=== PATIENT | female | born 1965 | race Caucasian/White ===

== ENCOUNTER 2017-08-18 14:40 | Emergency (ER) | payer MEDICAID, SELFPAY ==
[2017-08-18 14:41] VITALS: BP 135/83; PULSE 89; RESP 16; TEMP 36.8; O2SAT 98; BMI 49.5
--- NOTE | 2017-08-18 15:35 | CT_ITS ---
STUDY: CT ABDOMEN AND PELVIS WITHOUT CONTRAST REASON FOR EXAM: Female, 51 years old. Right flank pain. Fell 2 weeks ago. RADIATION DOSAGE (If Supplied By Facility): CTDIvol = ( 34.45 ) mGy, DLP = ( 1962.65 ) mGycm TECHNIQUE: Transaxial images were obtained from the dome of the diaphragm to the symphysis pubis without oral contrast, and without intravenous contrast. Sagittal and coronal images were reconstructed. Individualized dose optimization techniques were used for this CT. COMPARISON: February 25, 2017 FINDINGS: The visualized lung bases are unremarkable. The visualized portions of the heart are within normal limits. Normal liver. There are surgical clips in the gallbladder fossa consistent with a prior cholecystectomy. Normal spleen. Normal pancreas. Normal bilateral adrenal glands. Normal right kidney. 1.6 cm left renal cortical cyst. Normal visualized stomach. Normal small intestine. Normal colon. There are surgical clips in the region of the appendix consistent with a prior appendectomy. Normal abdominal aorta. Normal inferior vena cava. Normal retroperitoneum. Normal urinary bladder. Normal abdominal wall. Moderate levoconvex scoliosis. CT/Abdomen/Pelvis without Cont IMPRESSION: Scoliosis. No fracture. No cause for right flank pain identified. Electronically Signed: Franklin Olson MD at 16:38 EST , Service support ,
[2017-08-18 15:51] LABS: Red Blood Cells-Urine 0 SEEN /hpf (0-5)
[2017-08-18 15:54] LABS: Color, Urine Yellow (Yellow); Glucose, Dipstick Normal (Normal); Ketone-Dipstick Negative (Negative); Leukocyte Esterase-Dipstick 500 /ul (Negative); Nitrite-Dipstick Negative (Negative); Occult Blood-Urine 10 /ul (Negative); Protein-Dipstick Negative (Negative); Specific Gravity, Urine 1.015 (1.002-1.030); Urine Bilirubin Dipstick Negative (Negative); Urine Clarity Sl. Cloudy (Clear); Urine Urobilinogen Normal (Normal)
[2017-08-18] MEDS: Ondansetron 4 MG/2 ML Vial IV (15:55)
[2017-08-18 15:56] LABS: Absolute Lymphocyte Count 2.77 X10^3/ul (0.83-4.51); Absolute Neutrophil Count 4.7 X10^3/uL (2.0-7.7); Basophil# 0.02 X10^3/uL; Basophil% 0.2 % (0-1); Eosinophil# 0.13 X10^3/uL; Eosinophils% 1.6 % (0-5); Hematocrit 37.6 % (37-47); Hemoglobin 11.6 g/dl (12.0-15.0); Lymphocyte # 2.77 X10^3/ul (4.0); Lymphocyte % 34.4 % (19-41); Mean Corp Hgb Conc 30.9 g/gl (32-36); Mean Corpuscular Hgb 30.7 pg (27.0-32.0); Mean Corpuscular Volume 99.5 fL (81-99); Mean Platelet Vol. 10.2 fl (6.2-12.0); Monocyte# 0.46 X10^3/uL; Monocyte% 5.7 % (0-10); Neutrophil # 4.67 X10^3/uL (2.7-7.7); POSITIVE COUNT NO; POSITIVE DIFFERENTIAL NO; POSITIVE MORPHOLOGY NO; Platelet Count 262 K/mm3 (150-450); RBC Distribution Width CV 13.9 % (11.6-14.6); Red Blood Count 3.78 M/mm3 (4.2-5.4); White Blood Count 8.1 K/mm3 (4.4-11.0)
[2017-08-18 16:04] LABS: Bacteria RARE /hpf (None Seen); Mucous, Urine 1+ /hpf (<or=2+); Squamous Epithelial Cells - UA 0-5 SEEN /hpf (5-10); White Blood Cells 5-10 SEEN /hpf (0-5)
[2017-08-18 16:06] LABS: Anion Gap 10 (5-15); BUN 18 mg/dL (7-18); BUN/Creat Ratio 20.3 RATIO (10-20); Calcium,Total 9.2 mg/dL (8.5-10.1); Chloride 101 mmol/L (98-107); Creatinine, Serum 0.89 mg/dL (0.55-1.02); EST Glomerular Filtration Rate 71 mL/min (>60); Est Glom Filt Rate - Afr Amer 86 mL/min (>60); Estimated Creatinine Clearance 70.01 ml/min; Glucose 98 mg/dL (70-110); Potassium 4.2 mmol/L (3.5-5.1); Sodium Level 137 mmol/L (136-145)
--- NOTE | 2017-08-18 16:45 | ED.VISSUMM ---
- ER Visit Summary Date of Service: 08/18/17 Chief Complaint: [] Right flank pain urinary symptoms History of Present Illness: The patient is a 51 F [] symptoms for a few days gradual onset urinary frequency she reports a prior history for kidney infections and kidney stones no nausea vomiting or fever bowel bladder habits normal otherwise Physical Examination: [] She points to her right flank she is a very large woman head neck chest unremarkable the abdomen soft nontender upper lower extremities unremarkable the back is a very vague right paralumbar pain there is no midline C-spine lumbar spine pain the abdomen is obese but soft and nontender she complains of occasional pain seems to radiate to her right flank upper lower extremities unremarkable her gait strong sitting stable 1 week ago she fell but the symptoms began 2 days ago with the urinary frequency Test Results: [] Emergency Department Course and Treatment: [] UA shows signs of UTI CBC chemistry is unremarkable flank CT with reconstructions of lumbar spine images per radiology shows nothing acute no signs of obstruction no signs of kidney stone, no signs of acute fracture scoliosis see those reports The signs of UTI on the UA urine culture essentially started on Cipro and Pyridium [place] [facility] 6 tablets and follow with her family doctor return for change in symptoms Treatment Plan: [] Disposition: [] Home stable Impression: [] r Flank pain suspect UTI pyelonephritis recent fall This note was generated with [employer] dictation software. It may contain incorrect words, spelling, and punctuation that were not noted in review of the chart prior to signing ED Disposition - Plan for ED Patient: Chief Complaint: Complaint Referrals: Alvarez Montanez MD [Primary Care Provider] -
--- NOTE | 2017-08-18 16:48 | ED.DEP ---
ED Disposition - Plan for ED Patient: Chief Complaint: Complaint Instructions: ED UTI Cystitis Female, ED Kidney Infec Female Prescriptions: Hydrocodone Bitart/Apap 5-325 [[place] 5/325] 1 - 2 tab PO Q4H PRN PRN #12 tab PRN Reason: Pain Phenazopyridine HCl [Pyridium] 200 mg PO BID PRN PRN #7 tab PRN Reason: Pain Ciprofloxacin [Cipro] 500 mg PO BID #14 tab Referrals: lAvarez Montanez MD [Primary Care Provider] -
--- NOTE | 2017-08-18 16:52 | DCINST.ED_ITS ---
ED Disposition - Plan for ED Patient: Chief Complaint: Complaint Instructions: ED UTI Cystitis Female, ED Kidney Infec Female Prescriptions: Hydrocodone Bitart/Apap 5-325 [[place] 5/325] 1 - 2 tab PO Q4H PRN PRN #12 tab PRN Reason: Pain Phenazopyridine HCl [Pyridium] 200 mg PO BID PRN PRN #7 tab PRN Reason: Pain Ciprofloxacin [Cipro] 500 mg PO BID #14 tab Referrals: Alvarez Montanez MD [Primary Care Provider] -
[2017-08-18] MEDS: Ciprofloxacin 500 MG Tablet PO (17:02)
[2017-08-18 17:09] VITALS: BP 103/66; PULSE 76; RESP 18; RESP 20; O2SAT 96
== END 2017-08-18 17:10 | disposition home or self-care (01) ==
LOC: ED 15:25
PROVIDERS: Emergency Provider Emergency Medicine; Family Provider Internal Medicine; PCP Internal Medicine
DX: R10.9 Unspecified abdominal pain (principal); R30.0 Dysuria; R35.0 Frequency of micturition; J44.9 Chronic obstructive pulmonary disease, unspecified; Z79.01 Long term (current) use of anticoagulants; Z79.899 Other long term (current) drug therapy; Z87.442 Personal history of urinary calculi; Z87.440 Personal history of urinary (tract) infections
CPT/HCPCS: 74176; 80048; 81001; 85025; 87086; 87088; 96374; 96375; 99284; A4216; J2405

== ENCOUNTER 2017-12-04 18:52 | Emergency (ER) | payer MEDICAID, SELFPAY ==
[2017-12-04 18:54] VITALS: BP 110/70; PULSE 79; RESP 16; TEMP 36.1; O2SAT 95; BMI 21.7
--- NOTE | 2017-12-04 19:53 | EKG12_ITS ---
Test Reason : DIZZINESS Blood Pressure : / mmHG Vent. Rate : 081 BPM Atrial Rate : 081 BPM P-R Int : 132 ms QRS Dur : 092 ms QT Int : 398 ms P-R-T Axes : 024 -11 010 degrees QTc Int : 462 ms Normal sinus rhythm Inferior infarct , age undetermined Abnormal ECG Confirmed by TOBY BATISTA, CHARLENE ([id number]), content editor JOSE EDUARDO SCHULTZ ([id number]) on 12/07/2017 2:03:38 PM Referred By: DORETHA Confirmed By:CHARLENE LUIS MD
--- NOTE | 2017-12-04 20:01 | US_ITS ---
US Venous Duplex LE Bilat Complete INDICATION: CHEST PAIN,...HX OF PE COMPARISON: None TECHNIQUE: Ultrasonographic grayscale, duplex investigation of the venous structures of the bilateral lower extremities. Doppler analysis. FINDINGS: There is normal flow, compressibility and augmentation without evidence of thrombus in the bilateral greater saphenous veins at the junction, common femoral veins, femoral veins, popliteal veins, and posterior tibial veins. US/Venous Duplex Imag/[place] Extrem IMPRESSION: Negative examination. No evidence of DVT in the bilateral lower extremities. at 2141 Reported and signed by: Maddy Mancini MD Electronically Signed: Maddy Mancini MD at 21:39 EDT Tel , Service support ,
[2017-12-04] MEDS: Morphine 4 MG/ML Syringe IV (20:07)
[2017-12-04] MEDS: Ondansetron 4 MG/2 ML Vial IV (20:07)
[2017-12-04] MEDS: 0.9% Normal Saline 1,000 ML 1000 ML IV (20:07)
[2017-12-04 20:19] LABS: Bacteria 0 SEEN /hpf (None Seen); Mucous, Urine 0 SEEN /hpf (<or=2+)
[2017-12-04 20:23] LABS: Color, Urine Yellow (Yellow); Glucose, Dipstick Normal (Normal); Ketone-Dipstick Negative (Negative); Leukocyte Esterase-Dipstick 500 /ul (Negative); Nitrite-Dipstick Negative (Negative); Occult Blood-Urine 25 /ul (Negative); Protein-Dipstick 30 mg/dl (Negative); Specific Gravity, Urine 1.015 (1.002-1.030); Urine Clarity Sl. Cloudy (Clear); Urine Urobilinogen Normal (Normal)
[2017-12-04 20:24] LABS: Urine Bilirubin Dipstick 1 mg/dL (Negative)
--- NOTE | 2017-12-04 20:25 | RAD_ITS ---
XR Chest 2 Views INDICATION: COUGH, LEFT ARM PAIN COMPARISON: None FINDINGS: Heart size and pulmonary vascularity are within normal limits. The lungs are clear without evidence of airspace consolidation or pleural effusion. The osseous structures are grossly unremarkable. RAD/Chest PA and Lateral IMPRESSION: No radiographic evidence of acute intrathoracic disease. at 2122 Reported and signed by: Maddy Mancini MD Electronically Signed: Maddy Mancini MD at 21:20 EDT Tel , Service support ,
[2017-12-04 20:33] LABS: Red Blood Cells-Urine 5-10 SEEN /hpf (0-5); Squamous Epithelial Cells - UA 0-5 SEEN /hpf (5-10); White Blood Cells 25-50 SEEN /hpf (0-5)
[2017-12-04 20:38] LABS: Absolute Lymphocyte Count 2.44 X10^3/ul (0.83-4.51); Basophil# 0.03 X10^3/uL; Basophil% 0.4 % (0-1); Eosinophil# 0.11 X10^3/uL; Eosinophils% 1.4 % (0-5); Hematocrit 36.1 % (37-47); Hemoglobin 11.5 g/dl (12.0-15.0); Lymphocyte # 2.44 X10^3/ul (4.0); Lymphocyte % 30.2 % (19-41); Mean Corp Hgb Conc 31.9 g/gl (32-36); Mean Corpuscular Hgb 31.6 pg (27.0-32.0); Mean Corpuscular Volume 99.2 fL (81-99); Mean Platelet Vol. 10.9 fl (6.2-12.0); Monocyte# 0.51 X10^3/uL; Monocyte% 6.3 % (0-10); Neutrophil # 4.96 X10^3/uL (2.7-7.7); Neutrophil % 61.5 % (47-70); Platelet Count 258 K/mm3 (150-450); RBC Distribution Width CV 13.4 % (11.6-14.6); RBC Distribution Width SD 46.9 fl (35.1-43.9); Red Blood Count 3.64 M/mm3 (4.2-5.4); White Blood Count 8.1 K/mm3 (4.4-11.0)
[2017-12-04 20:39] LABS: POSITIVE COUNT NO; POSITIVE DIFFERENTIAL NO; POSITIVE MORPHOLOGY NO
[2017-12-04 20:49] LABS: Anion Gap 8 (5-15); BUN 19 mg/dL (7-18); BUN/Creat Ratio 16.4 RATIO (10-20); Calcium,Total 9.1 mg/dL (8.5-10.1); Chloride 108 mmol/L (98-107); Creatinine, Serum 1.16 mg/dL (0.55-1.02); EST Glomerular Filtration Rate 52 mL/min (>60); Est Glom Filt Rate - Afr Amer 63 mL/min (>60); Estimated Creatinine Clearance 53.11 ml/min; Glucose 118 mg/dL (74-106); Potassium 4.4 mmol/L (3.5-5.1); Sodium Level 139 mmol/L (136-145)
[2017-12-04 21:01] VITALS: BP 90/60; PULSE 71; RESP 16; O2SAT 92
[2017-12-04 21:04] LABS: Lactic Acid 1.1 mmol/L (0.4-2.0)
--- NOTE | 2017-12-04 22:04 | ED.DCSUM_ITS ---
- ER Visit Summary Date of Service: 12/04/17 Chief Complaint: Upper back pain History of Present Illness: The patient is a [address] Montanez. She reports she has upper back pain that began 3 days ago while she was at rest. It is a sharp continuous pain. Is 10 out of 10 worst 7-10 currently. Is worsened by deep breaths and relieved by nothing. She denies any trauma. No fall, MVA, or change in activity. She reports this is similar to when she has had a PE. Last PE was approximately 1 year ago. She has been on Xarelto since that time and reports he is not missed a dose of this. Patient also reports that she has dysuria and frequency that began 3 days ago. She has had chills, but no fever. She has had a nonproductive cough for the past 2 days. She has had mild shortness of breath. Physical Examination: Vitals: Stable. Afebrile. General: Well-nourished and well-developed. Head: Normocephalic atraumatic. Neck: Supple, no lymphadenopathy. No JVD. Nontender. Cardiovascular: Regular rate and rhythm. No murmurs. Respiratory: No respiratory distress. Clear to auscultation bilaterally. Abdominal: Soft, nontender, nondistended, normal bowel sounds. No guarding, rebound, or peritoneal signs. Back: Moderate tenderness palpation to the left intrascapular musculature that does reproduce her pain. There is no vertebral tenderness. Extremities: Nontender, no edema. Skin: Normal color, no rash. Neurologic: Alert and oriented ?3. Cranial nerves II through XII are intact. Normal strength and sensation. Psych: Normal affect. Test Results: EEG is sinus at [address] changes. Bilateral lower extremity Dopplers negative. Troponins negative. UA shows 25-50 white blood cells and 510 red blood cells. Chem-7 is more for chloride 108, glucose 118, BUN 19, creatinine 1.16. Lactic acid is 1.1. CBC is marked for an H&H 11.5 and 36.1. Chest x-ray shows poor inspiration cardiomegaly. Emergency Department Course and Treatment: Patient was treated the dose of morphine and Zofran IV. She was given Macrobid p.o. Her urine was sent for culture. Treatment Plan: An [facility] report was obtained which shows patient's had prescription for 8 opiates in the past year. She will be discharged with [place] and Macrobid. Instructed to follow-up her primary care physician in 3-5 days for repeat exam. Return to the emergency department for any worsening symptoms. Disposition: To home in improved and stable condition. Impression: 1. UTI. 2. Muscular skeletal back pain. 3. Coagulopathy on Xarelto. This note was generated with [employer] dictation software. It may contain incorrect words, spelling, and punctuation that were not noted in review of the chart prior to signing ED Disposition - Plan for ED Patient: Disposition: Home or Assisted Living Chief Complaint: General Illness Instructions: ED Neck Back Pain General Prescriptions: Hydrocodone/Acetaminophen [[place] 5-325 Tablet] 1 - 2 each PO 4X/DAY PRN PRN 3 Days #12 tablet PRN Reason: Pain Nitrofurantoin Macrocrystals [Macrobid] 100 mg PO Q12 #14 capsule Referrals: Alvarez Montanez MD [Primary Care Provider] - 3-5 Days if not improving
[2017-12-04 22:21] VITALS: BP 90/60; PULSE 69; RESP 16; O2SAT 91
[2017-12-04] MEDS: HYDROcodone Bitartrate/Apap 5/325 Tablet PO ×2 (22:24)
[2017-12-04] MEDS: Nitrofurantoin Macrocrystals 100 MG Capsule PO (22:24)
== END 2017-12-04 22:31 | disposition home or self-care (01) ==
PROVIDERS: Emergency Provider Emergency Medicine; Family Provider Internal Medicine; PCP Internal Medicine
DX: M54.6 Pain in thoracic spine (principal); R06.02 Shortness of breath; N39.0 Urinary tract infection, site not specified; D68.8 Other specified coagulation defects; I10 Essential (primary) hypertension; Z86.73 Personal history of transient ischemic attack (TIA), and cerebral infarction without residual deficits; Z86.711 Personal history of pulmonary embolism; Z72.0 Tobacco use
CPT/HCPCS: 71046; 80048; 81001; 83605; 84484; 85025; 87040; 93005; 93970; 96361; 96374; 96375; 99285; J7030; A4216; J2405

== ENCOUNTER 2018-02-12 16:10 | Emergency (ER) | payer MEDICAID, SELFPAY ==
[2018-02-12 16:11] VITALS: BP 163/106; PULSE 105; RESP 16; TEMP 35.6; O2SAT 95; BMI 47.6
--- NOTE | 2018-02-12 16:23 | ED.VISSUMM ---
- ER Visit Summary Date of Service: 02/12/18 Chief Complaint: Left wrist injury History of Present Illness: The patient is a 52 F who fell injuring her left wrist. Patient states she was lying in bed and got leg cramps causing her to jump out of bed quickly. She lost her balance and fell forward, putting her left hand out to catch herself. She is complaining of focal pain to the left wrist. She denies any other injury. She is right-hand dominant. Physical Examination: Vital signs significant for blood pressure of 163/106. Head neck examination unremarkable with no sign of trauma. Heart is regular rate and rhythm. No lung sounds are clear. Abdomen is soft nontender. Left upper extremity examination reveals diffuse tenderness throughout the left wrist with mild edema and ecchymosis. There is no tenderness over the hand, elbow, or shoulder. She has normal cap refill and sensation. Test Results: Left wrist x-rays are obtained and reveal no evidence of fracture or dislocation. Emergency Department Course and Treatment: Patient was given a dose of [place] here. Test results were discussed with her. She will be given a Velcro wrist splint to wear for comfort. She will continue naproxen at home as needed. Treatment Plan: [] Disposition: Discharge Impression: Left wrist sprain status post mechanical fall This note was generated with [employer] dictation software. It may contain incorrect words, spelling, and punctuation that were not noted in review of the chart prior to signing ED Disposition - Plan for ED Patient: Chief Complaint: Upper Extremity Injury Referrals: Alvarez Montanez MD [Primary Care Provider] -
--- NOTE | 2018-02-12 16:35 | RAD_ITS ---
STUDY: X-RAY - LEFT WRIST REASON FOR EXAM: Female, 52 years old. Pain. Fall. TECHNIQUE: 3 view(s) of the wrist were obtained. COMPARISON: None. FINDINGS: There is no evidence of fracture or dislocation. There are no significant degenerative changes. There are no radiodense foreign bodies. RAD/Wrist min 3 Views IMPRESSION: No fracture or dislocation. Electronically Signed: Yonatan Tavera, at 16:50 EDT Tel , Service support ,
[2018-02-12] MEDS: HYDROcodone Bitartrate/Apap 5/325 Tablet PO (16:40)
--- NOTE | 2018-02-12 17:04 | ED.DEP ---
ED Disposition - Plan for ED Patient: Disposition: Home or Assisted Living Chief Complaint: Upper Extremity Injury Instructions: ED Sprain Wrist Referrals: Alvarez Montanez MD [Primary Care Provider] - 1 Week if not improving
== END 2018-02-12 17:18 | disposition home or self-care (01) ==
PROVIDERS: Emergency Provider Emergency Medicine; Family Provider Internal Medicine; PCP Internal Medicine
DX: S63.502A Unspecified sprain of left wrist, initial encounter (principal); W06.XXXA Fall from bed, initial encounter; Y93.9 Activity, unspecified; Y92.9 Unspecified place or not applicable; Y99.9 Unspecified external cause status; J44.9 Chronic obstructive pulmonary disease, unspecified; R56.9 Unspecified convulsions; I10 Essential (primary) hypertension; Z72.0 Tobacco use; Z79.01 Long term (current) use of anticoagulants; Z79.899 Other long term (current) drug therapy; Z86.711 Personal history of pulmonary embolism; Z86.73 Personal history of transient ischemic attack (TIA), and cerebral infarction without residual deficits
CPT/HCPCS: 73110; 99284

== ENCOUNTER 2018-03-03 20:30 | Observation (INO) | payer MEDICAID, SELFPAY ==
[2018-03-03 20:31] VITALS: BP 134/75; PULSE 70; RESP 20; TEMP 35.8; O2SAT 97; BMI 46.7
[2018-03-03 20:41] VITALS: O2SAT 97
--- NOTE | 2018-03-03 20:50 | ED.VISSUMM ---
- ER Visit Summary Date of Service: 03/03/18 Chief Complaint: Leg pain History of Present Illness: The patient is a 52 F with bilateral lower extremity pain. No edema. The pain and circumferential. Started 2-3 days ago. She is able to walk. She was complaining of some shortness of breath, however this is somewhat chronic for her. She is on Xarelto for pulmonary embolism, she did have a period for 1 week where she did not take it, she started again one day ago. No fever chills no palpitations. Physical Examination: Not appear in acute distress. Slightly dry mucous membranes, no obvious facial deformity No C-spine tenderness supple neck. Regular rate and rhythm without any obvious murmurs Worse lungs bilaterally speaking in 4-5 word sentences with some respiratory distress Abdomen soft and nontender no guarding or rebound Moves all extremities without any difficulty or pain. No edema. She has pain anterior and posterior leg region. Normal pulses normal color. No rash. Skin does not show any obvious rashes or lesions, no trauma. Alert oriented ?3 with no gross focal deficit Emergency Department Course and Treatment: Patient has an unremarkable x-ray PE study is negative but she does have groundglass opacity in her lungs, rest of the workup is unremarkable I am unsure about the etiology but there are times where she is quite hypoxic and struggling to breathe. Admission for further workup. Disposition: Admit to the hospital Impression: Acute respiratory distress Hypoxia This note was generated with [employer] dictation software. It may contain incorrect words, spelling, and punctuation that were not noted in review of the chart prior to signing ED Disposition - Plan for ED Patient: Chief Complaint: Lower Extremity Injury Referrals: Alvarez Montanez MD [Primary Care Provider] -
--- NOTE | 2018-03-03 20:51 | ED.RN ---
PT REPORTS CHEST PRESSURE IN LEFT SIDE OF CHEST ALL DAY TODAY. PT PLACED ON [employer]PER[employer] AND CALLED RESPIRATORY FOR AN EKG. DR. MANZANARES INFORMED.
[2018-03-03] MEDS: Ondansetron 4 MG/2 ML Vial IV (20:59)
[2018-03-03] MEDS: Morphine 4 MG/ML Syringe IV (20:59)
[2018-03-03 21:04] LABS: Absolute Lymphocyte Count 3.95 X10^3/ul (0.83-4.51); Absolute Neutrophil Count 4.7 X10^3/uL (2.0-7.7); Basophil# 0.04 X10^3/uL; Basophil% 0.4 % (0-1); Eosinophil# 0.18 X10^3/uL; Eosinophils% 1.9 % (0-5); Hemoglobin 12.2 g/dl (12.0-15.0); Lymphocyte # 3.95 X10^3/ul (4.0); Lymphocyte % 42.4 % (19-41); Mean Corp Hgb Conc 31.3 g/gl (32-36); Mean Corpuscular Hgb 30.3 pg (27.0-32.0); Mean Corpuscular Volume 96.8 fL (81-99); Mean Platelet Vol. 10.8 fl (6.2-12.0); Monocyte# 0.42 X10^3/uL; Monocyte% 4.5 % (0-10); Neutrophil # 4.72 X10^3/uL (2.7-7.7); Neutrophil % 50.7 % (47-70); Platelet Count 273 K/mm3 (150-450); RBC Distribution Width CV 13.3 % (11.6-14.6); RBC Distribution Width SD 46.8 fl (35.1-43.9); Red Blood Count 4.03 M/mm3 (4.2-5.4); White Blood Count 9.3 K/mm3 (4.4-11.0)
[2018-03-03 21:06] LABS: POSITIVE COUNT NO; POSITIVE DIFFERENTIAL NO; POSITIVE MORPHOLOGY NO
[2018-03-03 21:25] LABS: AST(SGOT) 26 U/L (15-37); Alanine Aminotransfer ALT/SGPT 30 U/L (13-56); Alkaline Phosphatase 81 U/L (45-117); Anion Gap 8 (5-15); BUN 26 mg/dL (7-18); BUN/Creat Ratio 18.1 RATIO (10-20); Calcium,Total 8.7 mg/dL (8.5-10.1); Chloride 108 mmol/L (98-107); Creatinine, Serum 1.44 mg/dL (0.55-1.02); EST Glomerular Filtration Rate 41 mL/min (>60); Est Glom Filt Rate - Afr Amer 49 mL/min (>60); Estimated Creatinine Clearance 42.78 ml/min; Glucose 99 mg/dL (74-106); Potassium 4.4 mmol/L (3.5-5.1); Sodium Level 140 mmol/L (136-145)
[2018-03-03] MEDS: Morphine 2 MG/ML Syringe IV (22:06)
[2018-03-03 22:35] VITALS: BP 130/75; PULSE 70; RESP 21; O2SAT 93
[2018-03-03 23:03] VITALS: PULSE 68; RESP 19
[2018-03-03] MEDS: Ipratropium/Albuterol Sulfate 3 ML AMPUL.NEB INHALATION (23:03)
--- NOTE | 2018-03-03 23:28 | PCM.HP.STD ---
Problem List (1) Acute and chronic respiratory failure Status: Acute (2) Restrictive lung disease Status: Chronic (3) Chronic narcotic dependence Status: Chronic (4) Morbid obesity Status: Chronic (5) HTN (hypertension) Status: Chronic Qualifiers: Hypertension type: essential hypertension Qualified Code(s): I10 - Essential (primary) hypertension (6) LEIGH ANN (acute kidney injury) Status: Acute History of Present Illness Date of Admission: 03/03/18 Chief Complaint: Bilateral leg pain and shortness of breath. The patient is a 52 year old F with a significant history of bilateral DVT, PE, seizures, chronic narcotic use, obesity, restrictive lung disease COPD, asthma, hypertension, hyperlipidemia, prediabetes and tobacco abuse who presents with 2 days of circumferential bilateral leg pain. Patient reports that at rest she has cramps in her legs. However, when she walks she has pain in her bilateral legs. Associated with her symptom is a progressively worsening shortness of breath ?1 week. The patient is on Xarelto for DVT and PE but she ran out of her Xarelto for 1 week and restarted his Xarelto few hours before his admission. Also patient reports epigastric pain for which reason she was given morphine sulfate at emergency department. On presentation at emergency department her oxygen saturation was in the hgher 80s to lower 90s. At emergency department because of her history of DVT and PE a CT of the chest was done. CT of the chest was unremarkable PE however I show some groundglass opacities. Patient reported that she was on home oxygen but her home oxygen prescription was discontinued because her oxygenation saturation was above the minimum threshold. Past Medical History Past Medical History (Chronic Problems): Chronic Problems (Last Reviewed 03/04/18 @ 00:43 by Quinn Ocampo MD) Obesity (Chronic) Restrictive lung disease (Chronic) Chronic narcotic dependence (Chronic) STEPHANIE (obstructive sleep apnea) (Chronic) COPD (chronic obstructive pulmonary disease) (Chronic) Hypothyroidism (Chronic) Depression (Chronic) Seizure disorder (Chronic) TIA (transient ischemic attack) (Chronic) Morbid obesity (Chronic) Anxiety and depression (Chronic) HTN (hypertension) (Chronic) HLD (hyperlipidemia) (Chronic) Medical History: Medical History (Last Reviewed 03/04/18 @ 00:43 by Quinn Ocampo MD) Obesity (Chronic) E66.9 MSSA (methicillin susceptible Staphylococcus aureus) pneumonia (Acute) J15.211 Restrictive lung disease (Chronic) J98.4 Dependence on continuous supplemental oxygen (Acute) Z99.81 Chronic narcotic dependence (Chronic) F11.20 Acute and chronic respiratory failure (Acute) J96.20 Pulmonary embolism (Acute) I26.99 SOB (shortness of breath) (Acute) R06.02 Diastolic dysfunction (Acute) I51.9 Syncope and collapse (Acute) R55 STEPHANIE (obstructive sleep apnea) (Chronic) G47.33 COPD (chronic obstructive pulmonary disease) (Chronic) J44.9 Hypothyroidism (Chronic) E03.9 Depression (Chronic) F32.9 Seizure disorder (Chronic) G40.909 Chest pain (Acute) R07.9 TIA (transient ischemic attack) (Chronic) Morbid obesity (Chronic) E66.01 Anxiety and depression (Chronic) F41.8 HTN (hypertension) (Chronic) I10 HLD (hyperlipidemia) (Chronic) E78.5 Bilateral peripheral pulmonary emboli (Inactive) COPD exacerbation (Inactive) J44.1 Allergies aspirin Allergy (Verified 03/03/18 20:33) Hives ibuprofen Allergy (Verified 03/03/18 20:33) Hives iodine Allergy (Verified 03/03/18 20:33) Hives ketorolac tromethamine [From Toradol] Allergy (Verified 03/03/18 20:33) Angioedema meperidine HCl [From Demerol] Allergy (Verified 03/03/18 20:33) Other Penicillins [PCN] Allergy (Verified 03/03/18 20:33) Hives tramadol HCl [From Ultram] Allergy (Verified 03/03/18 20:33) Angioedema nitroglycerin Adverse Reaction (Verified 03/03/18 20:33) Other HEADACHE, TONGUE SWELLING. BENTYL Allergy (Uncoded 03/03/18 20:33) Itching Home Medications: Ambulatory Orders Medication Instructions Recorded levETIRAcetam tablet [Keppra 500 mg PO BID 11/29/15 tablet] Labetalol [Trandate (Beta Juan José)] 100 mg PO BID #60 tab 04/08/16 Calcium Carbonate [Calcium] 600 mg PO DAILY 09/06/16 Clonazepam [Klonopin] 0.5 mg PO BID 10/02/16 Budesonide/Formoterol 160/4.5 2 puff INHALATION BID #1 inhaler 10/06/16 [Symbicort 160/4.5 Mcg Inhaler (SP)] Levothyroxine [Synthroid] 25 mcg PO DAILY@0600 tab 03/27/17 albuterol sulfate 2.5 mg/3 mL 2.5 mg INHALATION Q4H ml 08/01/17 (0.083 %) solution for nebulization albuterol sulfate HFA 90 2 puff INHALATION Q4H PRN g 08/01/17 mcg/actuation aerosol inhaler losartan 50 mg tablet 50 mg PO QDAY 08/01/17 omeprazole 40 mg capsule,delayed 40 mg PO QDAY 08/01/17 release pseudoephedrine-guaifenesin ER 120 1 tab PO DAILY PRN PRN 08/01/17 mg-1,200 mg tab,extend release 12hr rivaroxaban 20 mg tablet 20 mg PO DAILY #90 tab 03/03/18 Surgical History: Surgical History (Last Reviewed 03/04/18 @ 00:43 by Quinn Ocampo MD) History of hysterectomy (Resolved) Z98.890, Z90.710 History of cholecystectomy (Resolved) Z98.890, Z90.49 Hx of appendectomy (Resolved) Z98.890, Z90.49 Surgical History: appendectomy, cholecystectomy, hysterectomy Psychiatric History: Anxiety, Depression [employer]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 Lives: Spouse/ Significant Other Smoking Status: Current every day smoker Tobacco Use: Non-smoker Alcohol: None Drugs: None - *Family History Maternal Family History: Family History (Last Updated 08/01/17 @ 10:34 by Yolanda Skinner) Brother Myocardial infarction Father Colon cancer History Items: Cancer Paternal Family History: Family History (Last Updated 08/01/17 @ 10:34 by Yolanda Skinner) Brother Myocardial infarction Father Colon cancer History Items: Cancer Review of Systems Constitutional: Denies: Chills, Fever, Weight Change HEENT: Denies: Head Aches, Sinus Congestion, Sinus Drainage Cardiovascular: Denies: Chest Pain, Palpitations Respiratory: Reports: Shortness of breath at rest Gastrointestinal: Reports: - - Epigastric pain Genitourinary: Denies: Dysuria Musculoskeletal: Reports: Leg Pain - Bilateral Skin: Denies: Rash, Wounds Neurological: Denies: Numbness, Tingling, Focal weakness Psychiatric: Denies: Homicidal Ideations, Suicidal Ideations Endocrine: Denies: Change in Body Habitus, Polyuria Hematologic/ Lymphatic: Denies: Easy Bruising, Easy Bleeding VTE Information - Inpt Only VTE Present on Admission: No VTE Mechan Device Prophylaxis: None VTE Pharm Prophylaxis ordered?: No Reason prophylaxis not ordered:: Treatment Not Indicated - On Xarelto; continued Patient Problems: Active and Suspected Problems (Last Reviewed 03/04/18 @ 00:43 by Quinn Ocampo MD) LEIGH ANN (acute kidney injury) (Acute) - Physical Exam General: Alert, Oriented x3, Cooperative HEENT: Atraumatic, PERRLA, EOMI, Normocephalic Neck: Supple, No JVD, Negative Carotid Bruits Lungs: Clear to auscultation, Diminished Cardiovascular: Regular rate, No murmurs Abdomen: Bowel Sounds Present, Soft, Non Tender Extremities: No edema, Capillary Refill Less than 3 Seconds Skin: No rashes, No breakdown Musculoskeletal: Tenderness - Bilateral legs. Lymphatic: No Cervical, Supraclavicular, or Inguinal Adenopathy Neurological: Cranial nerves II-XII grossly intact Psych/Mental Status: Anxious Vital Signs Temp Pulse Resp BP Pulse Ox 96.4 F L 68 19 H 130/75 H 93 03/03/18 20:31 03/03/18 23:03 03/03/18 23:03 03/03/18 22:35 03/03/18 22:35 Oxygen Delivery Method Room Air Weight: 131.542 kg Body Mass Index (BMI) 46.7 Laboratory Tests Past 24 Hrs 03/03/18 03/03/18 20:50 20:50 WBC 9.3 RBC 4.03 L Hgb 12.2 Hct 39.0 MCV 96.8 MCH 30.3 MCHC 31.3 L RDW 13.3 RDW Differential 46.8 H Plt Count 273 MPV 10.8 Immature Gran % (Auto) 0.100 Neut % (Auto) 50.7 Lymph % (Auto) 42.4 H Dade % (Auto) 4.5 Eos % (Auto) 1.9 Baso % (Auto) 0.4 Absolute Neuts (auto) 4.7 Absolute Lymphs (auto) 3.95 Total Counted Not Reportable Sodium 140 Potassium 4.4 Chloride 108 H Carbon Dioxide 24.0 Anion Gap 8 BUN 26 H Creatinine 1.44 H Estim Creat Clear Calc 42.78 Est GFR (MDRD) Af Amer 49 L Est GFR (MDRD) Non-Af 41 L BUN/Creatinine Ratio 18.1 Glucose 99 Calcium 8.7 Total Bilirubin 0.20 AST 26 ALT 30 Alkaline Phosphatase 81 Troponin I < 0.015 Total Protein 8.0 Albumin 4.0 Globulin 4.0 Albumin/Globulin Ratio 1.0 Assessment/Plan All Active Problems (Last Reviewed 03/04/18 @ 00:43 by Quinn Ocampo MD) LEIGH ANN (acute kidney injury) (Acute) MSSA (methicillin susceptible Staphylococcus aureus) pneumonia (Acute) Dependence on continuous supplemental oxygen (Acute) History of hysterectomy (Resolved) History of cholecystectomy (Resolved) Hx of appendectomy (Resolved) Acute and chronic respiratory failure (Acute) Pulmonary embolism (Acute) SOB (shortness of breath) (Acute) Diastolic dysfunction (Acute) Syncope and collapse (Acute) Chest pain (Acute) The patient is a 52 year old F with a significant history of bilateral DVT, PE, seizures, COPD, asthma, hypertension, hyperlipidemia, hypothyroidism, GERD, prediabetes and tobacco abuse who presented with bilateral leg pain, increasing shortness of breath and found to have hypoxia; laboratory finding of elevated creatinine above her baseline; and radiographic findings of ground glass opacity consistent with acute on chronic respiratory failure with hypoxia; and LEIGH ANN. Acute respiratory failure hypoxia. A CT of her chest shows a ground glass opacity Differential diagnosis include diffuse parenchymal lung disease. She has no wheezing on examination and she could move air the lungs. Although her lung sounds appear to be somewhat diminished this may be due to his obesity. She does not appear to be fair. The patient. We will treat patient with prednisone 40 mg daily DuoNeb scheduled Albuterol as needed Since patient is a patient of Dr. Christianson will consult Dr. Christianson. Bilateral leg pain Because of a history of PE; history of bilateral DVT; and current bilateral leg pain; will order bilateral duplex of the legs. Epigastric pain Likely due to work of breathing or GERD Troponin at emergency department was unremarkable. Serial troponin ordered. Received multiple doses of morphine at the emergency department. Tums prn Oxycodone prn Acute kidney injury Creatinine on admit was 1.44 Baseline creatinine is less than 1. Gentle IV hydration Avoid nephrotoxic's. Hypertension Labetalol and Cozaar continued Hypothyroidism Synthroid continued History of seizures Seizure precautions Keppra continued Tobacco abuse counselled Inpatient consult for smoking cessation. Patient refused a nicotine patch. She states the nicotine patch making nauseous. History of DVT/PE Xarelto continued. DVT prophylaxis Not indicated Home Xarelto continued. Code Visit Inpatient E&M: 91553 Init Hosp L3
[2018-03-04] VITALS (10 sets, daily range): BP systolic 105–120; BP diastolic 58–91; PULSE 58–84; RESP 17–22; TEMP 36.4–36.8; O2SAT 81–98; BMI 48.4; BMI 48.5
[2018-03-04] MEDS: Morphine 2 MG/ML Syringe 1 MG IV (00:15)
[2018-03-04] MEDS: oxyCODONE 5 MG Tablet PO ×2 (01:33→05:51)
[2018-03-04] MEDS: predniSONE 20 MG Tablet 40 MG PO (01:34)
[2018-03-04] MEDS: 0.9% Normal Saline 1,000 ML 75 ML IV (01:34)
[2018-03-04] MEDS: Ipratropium/Albuterol Sulfate 3 ML AMPUL.NEB INHALATION (02:02)
[2018-03-04] MEDS: Acetaminophen 325 MG Tablet 650 MG PO ×2 (03:42→11:12)
[2018-03-04] MEDS: Mag Hydrox/Al Hydrox/Simeth 30 ML UDC PO (04:13)
--- NOTE | 2018-03-04 05:23 | CPS ---
pt having chest pain , does not want cpap on at this time.
[2018-03-04] MEDS: Levothyroxine 25 MCG TABLET PO (05:51)
[2018-03-04 05:57] LABS: Anion Gap 10 (5-15); BUN 22 mg/dL (7-18); BUN/Creat Ratio 20.6 RATIO (10-20); Calcium,Total 8.5 mg/dL (8.5-10.1); Chloride 108 mmol/L (98-107); Creatinine, Serum 1.07 mg/dL (0.55-1.02); EST Glomerular Filtration Rate 57 mL/min (>60); Est Glom Filt Rate - Afr Amer 69 mL/min (>60); Estimated Creatinine Clearance 57.58 ml/min; Glucose 123 mg/dL (74-106); Potassium 4.8 mmol/L (3.5-5.1); Sodium Level 141 mmol/L (136-145)
--- NOTE | 2018-03-04 06:46 | PCM.CONS.GEN ---
Reason for Consult Date of Consultation: 03/04/18 Reason for Consultation: Shortness of breath/acute hypoxic respiratory insufficiency History of Present Illness: The patient is a morbidly obese 52-year-old female, with a history as outlined below, who presented to the emergency department on March 03 with complaints of shortness of breath and lower extremity pain. The patient does have a history of bilateral pulmonary emboli initially diagnosed in December 2015. The patient has been anticoagulated on Xarelto since that time. She does have a smoking history that includes 2 packs per day ?13 years, having quit completely 1 year ago. The patient has been evaluated in the pulmonary medicine clinic and was last seen in April 2017. Since she established care in the pulmonary medicine clinic, she has no showed 3 separate appointments and canceled 1. She claims that she also ran out of her Xarelto and only just recently got a new prescription for it from her vp ad sales west, Dr. Bagley. Surface echocardiogram from March 2017 revealed evidence of diastolic dysfunction with preserved ejection fraction. Right ventricular systolic pressure was estimated to be 36 mmHg. The patient also has known underlying obstructive sleep apnea, for which it was recommended that she be placed on nocturnal BiPAP at a pressure support of 22/18 cm of water with humidification. Pulmonary function testing from October 2016 revealed evidence of a mild restrictive ventilatory defect with asymmetric reduction in diffusing capacity and significantly reduced ERV, likely related to the patient's body habitus. A 6 minute walk test was also completed in March 2017 revealed no significant exertional hypoxia, but did reveal exertional tachycardia, likely indicative of an underlying cardiovascular limitation to exercise tolerance. On presentation to the emergency department, the patient was noted to be afebrile hemodynamically stable. She was initially documented to be maintaining appropriate oxygen saturations on room air. The patient refused to be placed on CPAP overnight. This morning, she did readily admit to me that she is noncompliant with the use of her nocturnal BiPAP therapy. Her laboratory evaluation revealed no evidence of a leukocytosis. Chemistry profile revealed evidence of acute kidney injury with a creatinine of 1.4. Troponins have been negative ?3. A repeat CTA chest was obtained and revealed no evidence of pulmonary embolism. There was diffuse interstitial thickening and groundglass opacities concerning for pulmonary interstitial edema. Past Medical History Past Medical History (Chronic Problems): Chronic Problems (Last Updated 03/04/18 @ 10:00 by Ge Montiel DO) Obesity (Chronic) Restrictive lung disease (Chronic) Chronic narcotic dependence (Chronic) Pulmonary embolism (Chronic) Diastolic dysfunction (Chronic) STEPHANIE (obstructive sleep apnea) (Chronic) COPD (chronic obstructive pulmonary disease) (Chronic) Hypothyroidism (Chronic) Depression (Chronic) Seizure disorder (Chronic) TIA (transient ischemic attack) (Chronic) Morbid obesity (Chronic) Anxiety and depression (Chronic) HTN (hypertension) (Chronic) HLD (hyperlipidemia) (Chronic) Medical History: Medical History (Last Updated 03/04/18 @ 10:00 by Ge Montiel DO) Obesity (Chronic) E66.9 MSSA (methicillin susceptible Staphylococcus aureus) pneumonia (Resolved) J15.211 Restrictive lung disease (Chronic) J98.4 Dependence on continuous supplemental oxygen (Acute) Z99.81 Chronic narcotic dependence (Chronic) F11.20 Acute and chronic respiratory failure (Resolved) J96.20 Pulmonary embolism (Chronic) I26.99 SOB (shortness of breath) (Acute) R06.02 Diastolic dysfunction (Chronic) I51.9 Syncope and collapse (Resolved) R55 STEPHANIE (obstructive sleep apnea) (Chronic) G47.33 COPD (chronic obstructive pulmonary disease) (Chronic) J44.9 Hypothyroidism (Chronic) E03.9 Depression (Chronic) F32.9 Seizure disorder (Chronic) G40.909 Chest pain (Acute) R07.9 TIA (transient ischemic attack) (Chronic) Morbid obesity (Chronic) E66.01 Anxiety and depression (Chronic) F41.8 HTN (hypertension) (Chronic) I10 HLD (hyperlipidemia) (Chronic) E78.5 Bilateral peripheral pulmonary emboli (Inactive) COPD exacerbation (Inactive) J44.1 Allergies aspirin Allergy (Verified 03/03/18 20:33) Hives ibuprofen Allergy (Verified 03/03/18 20:33) Hives iodine Allergy (Verified 03/03/18 20:33) Hives ketorolac tromethamine [From Toradol] Allergy (Verified 03/03/18 20:33) Angioedema meperidine HCl [From Demerol] Allergy (Verified 03/03/18 20:33) Other Penicillins [PCN] Allergy (Verified 03/03/18 20:33) Hives tramadol HCl [From Ultram] Allergy (Verified 03/03/18 20:33) Angioedema nitroglycerin Adverse Reaction (Verified 03/03/18 20:33) Other HEADACHE, TONGUE SWELLING. BENTYL Allergy (Uncoded 03/03/18 20:33) Itching Home Medications: Ambulatory Orders Medication Instructions Recorded levETIRAcetam tablet [Keppra 500 mg PO BID 11/29/15 tablet] Labetalol [Trandate (Beta Juan José)] 100 mg PO BID #60 tab 04/08/16 Calcium Carbonate [Calcium] 600 mg PO DAILY 09/06/16 Clonazepam [Klonopin] 0.5 mg PO BID 10/02/16 Budesonide/Formoterol 160/4.5 2 puff INHALATION BID #1 inhaler 10/06/16 [Symbicort 160/4.5 Mcg Inhaler (SP)] Levothyroxine [Synthroid] 25 mcg PO DAILY@0600 tab 03/27/17 albuterol sulfate 2.5 mg/3 mL 2.5 mg INHALATION Q4H ml 08/01/17 (0.083 %) solution for nebulization albuterol sulfate HFA 90 2 puff INHALATION Q4H PRN g 08/01/17 mcg/actuation aerosol inhaler losartan 50 mg tablet 50 mg PO QDAY 08/01/17 omeprazole 40 mg capsule,delayed 40 mg PO QDAY 08/01/17 release pseudoephedrine-guaifenesin ER 120 1 tab PO DAILY PRN PRN 08/01/17 mg-1,200 mg tab,extend release 12hr rivaroxaban 20 mg tablet 20 mg PO DAILY #90 tab 03/03/18 Surgical History: Surgical History (Last Reviewed 03/04/18 @ 00:43 by Quinn Ocampo MD) History of hysterectomy (Resolved) Z98.890, Z90.710 History of cholecystectomy (Resolved) Z98.890, Z90.49 Hx of appendectomy (Resolved) Z98.890, Z90.49 Surgical History: appendectomy, cholecystectomy, hysterectomy Psychiatric History: Anxiety, Depression 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: No pertinent MEDICAL 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 history Lives: Spouse/ Significant Other Smoking Status: Current every day smoker Tobacco Use: Non-smoker Alcohol: None Drugs: None - *Family History Maternal Family History: Family History (Last Updated 08/01/17 @ 10:34 by Yolanda Skinner) Brother Myocardial infarction Father Colon cancer History Items: Cancer Paternal Family History: Family History (Last Updated 08/01/17 @ 10:34 by Yolanda Skinner) Brother Myocardial infarction Father Colon cancer History Items: Cancer Review of Systems Constitutional: Denies: Chills, Fever Eyes: Denies: Blurred vision, Double vision HEENT: Denies: Head Aches, Sinus Congestion, Sinus Drainage Cardiovascular: Reports: Chest Pain Respiratory: Reports: Shortness of Breath Gastrointestinal: Denies: Abdominal Pain, Nausea, Vomiting Genitourinary: Denies: Dysuria Musculoskeletal: Reports: Leg Pain Skin: Denies: Rash, Wounds Neurological: Denies: Numbness, Tingling, Focal weakness Psychiatric: Reports: Anxiety Hematologic/ Lymphatic: Reports: Hx of blood clot Patient Problems: Active and Suspected Problems (Last Updated 03/04/18 @ 10:00 by Ge Montiel DO) Dyspnea (Acute) LEIGH ANN (acute kidney injury) (Acute) Objective: The patient's most recent lab work, culture data and imaging studies have all been personally reviewed. - Physical Exam General: Alert, Cooperative, No apparent distress, - - Morbidly obese. Resting supine in bed. Currently receiving an aerosol treatment. HEENT: Atraumatic, PERRLA, Normocephalic Oral: No Gingival or Mucosal Lesions/ Ulcerations Neck: Supple, No Nodes, Trachea Midline, - - Large neck circumference with redundant soft tissue. Lungs: No rhonchi, No wheeze, No rales, Diminished Cardiovascular: Regular rate, Regular Rhythm, Normal S1, Normal S2, No murmurs Abdomen: Bowel Sounds Present, Soft, Non Tender, Non-Distended, Obese Extremities: No clubbing, No cyanosis, No edema Skin: No breakdown Musculoskeletal: No Tenderness to Palpation of Joints or Extremities, No Muscle Wasting Lymphatic: No Cervical, Supraclavicular, or Inguinal Adenopathy Neurological: Neuro grossly intact Psych/Mental Status: Normal Affect, Appropriate Vital Signs Temp Pulse Resp BP Pulse Ox 97.5 F L 68 18 112/72 95 03/04/18 05:46 03/04/18 05:46 03/04/18 05:46 03/04/18 05:46 03/04/18 05:46 Oxygen Flow Rate (L/min) 2.5 Oxygen Delivery Method Nasal Cannula Weight: 300 lb 7.841 oz Body Mass Index (BMI) 48.4 Intake and Output for Last 24 Hours 03/02/18 03/03/18 03/04/18 23:59 23:59 23:59 Intake Total 713 / 713 Balance 713 / 713 Laboratory Tests Past 24 Hrs 03/04/18 03/04/18 03/04/18 02:05 05:00 05:00 WBC Pending RBC Pending Hgb Pending Hct Pending MCV Pending MCH Pending MCHC Pending RDW Pending RDW Differential Pending Plt Count Pending Neut % (Auto) Pending Absolute Neuts (auto) Pending Total Counted Pending Sodium 141 Potassium 4.8 Chloride 108 H Carbon Dioxide 23.0 Anion Gap 10 BUN 22 H Creatinine 1.07 H Estim Creat Clear Calc 57.58 Est GFR (MDRD) Af Amer 69 Est GFR (MDRD) Non-Af 57 L BUN/Creatinine Ratio 20.6 H Glucose 123 H Calcium 8.5 Troponin I < 0.015 < 0.015 B-Natriuretic Peptide 03/04/18 05:00 WBC RBC Hgb Hct MCV MCH MCHC RDW RDW Differential Plt Count Neut % (Auto) Absolute Neuts (auto) Total Counted Sodium Potassium Chloride Carbon Dioxide Anion Gap BUN Creatinine Estim Creat Clear Calc Est GFR (MDRD) Af Amer Est GFR (MDRD) Non-Af BUN/Creatinine Ratio Glucose Calcium Troponin I B-Natriuretic Peptide Pending Clinical Impression(s) from Imaging Studies Chest X-Ray 03/03/18 20:57 IMPRESSION: Elevated right hemidiaphragm and mild basilar atelectasis Electronically Signed: Oziel Burroughs MD at 21:40 EDT , Service support , Chest CTA 03/03/18 21:51 IMPRESSION: Generalized interstitial thickening with groundglass opacities which may be on the basis of pulmonary interstitial edema or inflammatory disease.. No evidence for pulmonary embolus Electronically Signed: Oziel Burroughs MD at 22:41 EDT , Service support , Assessment/Plan All Active Problems (Last Updated 03/04/18 @ 10:00 by Ge Montiel DO) Dyspnea (Acute) LEIGH ANN (acute kidney injury) (Acute) MSSA (methicillin susceptible Staphylococcus aureus) pneumonia (Resolved) Dependence on continuous supplemental oxygen (Acute) History of hysterectomy (Resolved) History of cholecystectomy (Resolved) Hx of appendectomy (Resolved) Acute and chronic respiratory failure (Resolved) SOB (shortness of breath) (Acute) Syncope and collapse (Resolved) Chest pain (Acute) RECOMMENDATIONS: 1. Wean supplemental oxygen to maintain saturations at or above 90%. 2. Check BNP and viral panel, given groundglass changes noted on CT. 3. Encourage aggressive incentive spirometer use and mobilize patient as tolerated 4. Start BiPAP with naps and nightly. 5. Discontinue bronchodilators and steroids, as the patient has no evidence of obstructive lung disease on PFTs. 6. Discontinue supplemental IV fluids. 7. Continue Xarelto IMPRESSIONS: 1. Shortness of breath/acute hypoxic respiratory insufficiency It appears that the patient supplemental oxygen was initiated sometime overnight. She was never documented to be hypoxic prior to its initiation. Periodic oxygen desaturations would be expected, given the patient's sleep apnea, and noncompliance with the use of noninvasive positive pressure ventilation overnight. Recommend weaning her oxygen this morning to maintain saturations at or above 90%. She should be encouraged to utilize her incentive spirometer. Ambulate patient today. Her PFTs previously obtained revealed a restrictive ventilatory impairment, likely the consequence of her underlying body habitus. I strongly suspect that her shortness of breath is also related to her morbid obesity and generalized deconditioning. In addition, the patient's last echocardiogram did reveal evidence of diastolic dysfunction and elevated right ventricular systolic pressures. 2. Acute kidney injury Likely prerenal in etiology, as the patient's creatinine has improved with gentle IV fluid hydration. Urine output is appropriate. No indication for renal replacement therapy at this time. 3. Mild restrictive lung disease/history of obstructive sleep apnea, noncompliant with the use of nocturnal PAP therapy The patient readily admitted to noncompliance with use of nocturnal BiPAP therapy. She has not followed up with us in the pulmonary medicine clinic. Recommend starting BiPAP 22/18 centimeters of water, per the recommendations of her last polysomnogram, with naps and nightly. 4. Heart failure with preserved ejection fraction Discontinue supplemental IV fluids now. Recommend sodium restriction. Diuretics, if needed. 5. Personal history of venous thrombolic disease The patient was diagnosed with bilateral PE in 2016. She has reportedly been on Xarelto since that time. It is unclear what workup has been done to date to identify the precipitating etiology for her PE. However, it is unclear, why she is still on oral anticoagulation at this time, given the time that his lab since her initial diagnosis. 6. Morbid obesity/hypothyroidism/hypertension/anxiety/poor medical follow-up and compliance Complicates care, management, recovery and prognosis. Okay to continue baseline medications from my perspective. The patient has high resource utilization and poor outpatient follow-up. This note was generated with [employer] dictation software. It may contain incorrect words, spelling, and punctuation that were not noted in checking the note before signing. Code Visit Inpatient E&M: 68818 Init Hosp L3
[2018-03-04 07:22] LABS: Hematocrit 35.1 % (37-47); Hemoglobin 10.7 g/dl (12.0-15.0); Mean Corp Hgb Conc 30.5 g/gl (32-36); Mean Corpuscular Volume 98.3 fL (81-99); Mean Platelet Vol. 11.5 fl (6.2-12.0); POSITIVE COUNT NO; POSITIVE DIFFERENTIAL NO; POSITIVE MORPHOLOGY NO; Platelet Count 216 K/mm3 (150-450); RBC Distribution Width CV 13.2 % (11.6-14.6); RBC Distribution Width SD 46.4 fl (35.1-43.9); Red Blood Count 3.57 M/mm3 (4.2-5.4); White Blood Count 9.7 K/mm3 (4.4-11.0)
[2018-03-04 07:23] LABS: Absolute Lymphocyte Count 1.99 X10^3/ul (0.83-4.51); Absolute Neutrophil Count 7.1 X10^3/uL (2.0-7.7); Basophil# 0.03 X10^3/uL; Basophil% 0.3 % (0-1); Eosinophil# 0.09 X10^3/uL; Eosinophils% 0.9 % (0-5); Lymphocyte # 1.99 X10^3/ul (4.0); Lymphocyte % 20.6 % (19-41); Monocyte# 0.43 X10^3/uL; Monocyte% 4.4 % (0-10); Neutrophil # 7.11 X10^3/uL (2.7-7.7); Neutrophil % 73.6 % (47-70)
[2018-03-04 08:27] LABS: BNP,B-Type NATRIURETIC PEPTIDE 30.9 pg/mL (0-100)
[2018-03-04] MEDS: Rivaroxaban 20 MG Tablet PO (08:45)
--- NOTE | 2018-03-04 09:50 | PCM.PN.HOSP ---
Patient Problems: Active and Suspected Problems (Last Reviewed 03/04/18 @ 00:43 by Quinn Ocampo MD) LEIGH ANN (acute kidney injury) (Acute) Subjective: Still with chest and leg pain. Patient states that she has dyspnea on exertion. Ran out of Xarelto but was able to get up prescribes. Patient stated that she just the prescription lapsed and had to go through another provider to get the Xarelto refilled. States that she has had episode of for venous thromboembolic events. Vitals/I&O's: Vital Signs Temp Pulse Resp BP Pulse Ox 36.4 C L 70 18 112/72 95 03/04/18 05:46 03/04/18 07:20 03/04/18 07:20 03/04/18 05:46 03/04/18 07:20 Oxygen Flow Rate (L/min) 2 Oxygen Delivery Method Nasal Cannula Weight: 136.3 kg Body Mass Index (BMI) 48.4 Intake and Output for Last 24 Hours 03/02/18 03/03/18 03/04/18 23:59 23:59 23:59 Intake Total 713 / 713 Balance 713 / 713 General: Alert, Cooperative, No apparent distress HEENT: Atraumatic, Normocephalic Oral: Moist Mucosa, No Gingival or Mucosal Lesions/ Ulcerations Neck: No Nodes, Thyroid Normal Size and Texture Lungs: Clear to auscultation, No rhonchi, No wheeze, Diminished Cardiovascular: Regular rate, Regular Rhythm, Normal S1, Normal S2, No murmurs Abdomen: Bowel Sounds Present, Soft, Non Tender, Non-Distended, Obese Psych/Mental Status: Appropriate, Flat Affect Laboratory Results 03/04/18 02:05: Troponin I < 0.015 03/04/18 05:00: WBC 9.7, RBC 3.57 L, Hgb 10.7 L, Hct 35.1 L, MCV 98.3, MCH 30.0, MCHC 30.5 L, RDW 13.2, RDW Differential 46.4 H, Plt Count 216, MPV 11.5, Immature Gran % (Auto) 0.200, Neut % (Auto) 73.6 H, Lymph % (Auto) 20.6, Coleman % (Auto) 4.4, Eos % (Auto) 0.9, Baso % (Auto) 0.3, Absolute Neuts (auto) 7.1, Absolute Lymphs (auto) 1.99, Total Counted Not Reportable 03/04/18 05:00: Sodium 141, Potassium 4.8, Chloride 108 H, Carbon Dioxide 23.0, Anion Gap 10, BUN 22 H, Creatinine 1.07 H, Estim Creat Clear Calc 57.58, Est GFR (MDRD) Af Amer 69, Est GFR (MDRD) Non-Af 57 L, BUN/Creatinine Ratio 20.6 H, Glucose 123 H, Calcium 8.5, Troponin I < 0.015 03/04/18 05:00: B-Natriuretic Peptide 30.9 03/04/18 07:45: Troponin I < 0.015 Current Medications Acetaminophen (Tylenol) 650 mg PO Q6H PRN PRN PRN Reason: Mild Pain (1-3)/Temp > 100.7 F Last Admin: 03/04/18 03:42 Dose: 650 mg Bisacodyl (Dulcolax) 5 mg PO DAILY PRN PRN PRN Reason: Constipation Calcium Carbonate (Tums) 1,000 mg PO Q4H PRN PRN PRN Reason: DYSPEPSIA Calcium Carbonate (Os-Liang 500) 500 mg PO DAILY [facility] Clonazepam (Klonopin) 0.5 mg PO BID [facility] Sodium Chloride () 1,000 mls @ 75 mls/hr IV .[id number] [facility] Stop: 03/04/18 14:14 Last Admin: 03/04/18 01:34 Dose: 75 mls/hr Labetalol HCl (Trandate) 100 mg PO BID [facility] Levetiracetam (Keppra Tablet) 500 mg PO BID [facility] Levothyroxine Sodium (Synthroid) 25 mcg PO DAILY@0600 [facility] Last Admin: 03/04/18 05:51 Dose: 25 mcg Losartan Potassium (Cozaar) 50 mg PO DAILY [facility] Magnesium Hydroxide (Milk Of Magnesia) 30 ml PO DAILY PRN PRN PRN Reason: Constipation Ondansetron HCl (Zofran) 4 mg IV Q8H PRN PRN PRN Reason: Nausea Oxycodone HCl (Oxyir) 5 mg PO Q4H PRN PRN PRN Reason: MOD-SEVERE PAIN (4-10/10) Last Admin: 03/04/18 05:51 Dose: 5 mg Rivaroxaban (Xarelto) 20 mg PO DAILYCM [facility] Last Admin: 03/04/18 08:45 Dose: 20 mg Sodium Chloride () 5 - 30 ml IV UD PRN PRN Reason: SALINE FLUSH Medical Necessity - Tobacco Use Smoking Status: Current every day smoker Tobacco Use: Non-smoker Assessment/Plan All Active Problems (Last Reviewed 03/04/18 @ 00:43 by Quinn Ocampo MD) LEIGH ANN (acute kidney injury) (Acute) MSSA (methicillin susceptible Staphylococcus aureus) pneumonia (Acute) Dependence on continuous supplemental oxygen (Acute) History of hysterectomy (Resolved) History of cholecystectomy (Resolved) Hx of appendectomy (Resolved) Acute and chronic respiratory failure (Acute) Pulmonary embolism (Acute) SOB (shortness of breath) (Acute) Diastolic dysfunction (Acute) Syncope and collapse (Acute) Chest pain (Acute) 1. Dyspnea on exertion Patient never had hypoxia nor hypercapnia so acute respiratory failure is ruled out Will check ambulatory pulse ox to see if patient requires oxygen with activity. She does not require oxygen oxygen with rest No pulmonary embolism Low quality CT angiogram of chest and I did not see any overt infiltrate. 2. Leg pain Unremarkable on exam No further workup necessary Discharge home pending results of the ambulatory pulse ox. The patient does require oxygen will be with activity and will have that her rate is. Otherwise patient will go home.
--- NOTE | 2018-03-04 09:56 | PCM.DC ---
- Discharge Diagnoses Current Active Problems: Current Active and Chronic Problems (Last Reviewed 03/04/18 @ 00:43 by Quinn Ocampo MD) LEIGH ANN (acute kidney injury) (Acute) You will use the following diet at home:: Cardiac Your food should be the consistency of: Regular Your liquids should be the consistency of: Regular/Thin Call your doctor if you observe: - - increased shortness of breath. Allergies/Adverse Reactions: Allergies aspirin Allergy (Verified 03/03/18 20:33) Hives ibuprofen Allergy (Verified 03/03/18 20:33) Hives iodine Allergy (Verified 03/03/18 20:33) Hives ketorolac tromethamine [From Toradol] Allergy (Verified 03/03/18 20:33) Angioedema meperidine HCl [From Demerol] Allergy (Verified 03/03/18 20:33) Other Penicillins [PCN] Allergy (Verified 03/03/18 20:33) Hives tramadol HCl [From Ultram] Allergy (Verified 03/03/18 20:33) Angioedema nitroglycerin Adverse Reaction (Verified 03/03/18 20:33) Other HEADACHE, TONGUE SWELLING. BENTYL Allergy (Uncoded 03/03/18 20:33) Itching Medications to take at Discharge levETIRAcetam tablet [Keppra tablet] 500 mg PO BID 11/29/15 Labetalol [Trandate (Beta Juan José)] 100 mg PO BID #60 tab 04/08/16 Calcium Carbonate [Calcium] 600 mg PO DAILY 09/06/16 Clonazepam [Klonopin] 0.5 mg PO BID 10/02/16 Budesonide/Formoterol 160/4.5 [Symbicort 160/4.5 Mcg Inhaler (SP)] 2 puff INHALATION BID #1 inhaler 10/06/16 Levothyroxine [Synthroid] 25 mcg PO DAILY@0600 tab 03/27/17 albuterol sulfate 2.5 mg/3 mL (0.083 %) solution for nebulization 2.5 mg INHALATION Q4H ml 08/01/17 albuterol sulfate HFA 90 mcg/actuation aerosol inhaler 2 puff INHALATION Q4H PRN g 08/01/17 losartan 50 mg tablet 50 mg PO QDAY 08/01/17 omeprazole 40 mg capsule,delayed release 40 mg PO QDAY 08/01/17 pseudoephedrine-guaifenesin ER 120 mg-1,200 mg tab,extend release 12hr 1 tab PO DAILY PRN PRN 08/01/17 rivaroxaban 20 mg tablet 20 mg PO DAILY #90 tab 03/03/18 Primary Care Physician: Alvarez Montanez MD [Primary Care Provider] - Within 2 Weeks Test Results: Test results from this visit will be discussed in further detail at your follow-up appointment, if applicable. Please Follow Up With: Carlota Gregorio NP-C When: 1-2 months Proposed Discharge Date: 03/04/18
--- NOTE | 2018-03-04 09:59 | PCM.DC.SUM ---
Discharge Date and Diagnosis - Problem List Patient Problems: Active and Suspected Problems (Last Reviewed 03/04/18 @ 00:43 by Quinn Ocampo MD) LEIGH ANN (acute kidney injury) (Acute) Dyspnea (Acute) Date of Admission: 03/03/18 Date of Discharge: 03/04/18 - Primary Discharge Diagnosis Active and Suspected Problems (Last Reviewed 03/04/18 @ 00:43 by Quinn Ocampo MD) LIEGH ANN (acute kidney injury) (Acute) - Secondary Discharge Diagnosis Chronic Problems (Last Reviewed 03/04/18 @ 00:43 by Quinn Ocampo MD) Obesity (Chronic) Restrictive lung disease (Chronic) Chronic narcotic dependence (Chronic) STEPHANIE (obstructive sleep apnea) (Chronic) COPD (chronic obstructive pulmonary disease) (Chronic) Hypothyroidism (Chronic) Depression (Chronic) Seizure disorder (Chronic) TIA (transient ischemic attack) (Chronic) Morbid obesity (Chronic) Anxiety and depression (Chronic) HTN (hypertension) (Chronic) HLD (hyperlipidemia) (Chronic) Hospital Course and Treatment Imaging Results: Clinical Impression(s) from Imaging Studies Chest X-Ray 03/03/18 20:57 IMPRESSION: Elevated right hemidiaphragm and mild basilar atelectasis Electronically Signed: Oziel Burroughs MD at 21:40 EDT , Service support , Chest CTA 03/03/18 21:51 IMPRESSION: Generalized interstitial thickening with groundglass opacities which may be on the basis of pulmonary interstitial edema or inflammatory disease.. No evidence for pulmonary embolus Electronically Signed: Oziel Burroughs MD at 22:41 EDT , Service support , Get Christianson DO. Operations: None Procedures: None Summary of Care Provided: The patient is a 52 year old F presents with shortness of breath. Patient was never hypoxic. 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 Patient to get it prescribed again. Patient underwent a CT scan injury of the chest that was embolism. It was a poor quality did mention groundglass pasty but no evidence of any pneumonia, clinically. Patient did have some acute kidney injury with creatinine 1.4 baseline of 0.8. Creatinine today is improved to 1.07. Patient is otherwise stable. Patient will have amatory pulse ox to see if she requires any oxygen at home. Patient certainly does not require oxygen at rest. Patient did have some chest pain that was atypical. EKG and troponin series were negative. [] Discharge Diet: Low fat/ Low Cholesterol Discharge Activity: Return to Normal Activity Call your doctor if you observe: - - increased shortness of breath. Home Medications: Medications to take at Discharge levETIRAcetam tablet [Keppra tablet] 500 mg PO BID 11/29/15 Labetalol [Trandate (Beta Juan José)] 100 mg PO BID #60 tab 04/08/16 Calcium Carbonate [Calcium] 600 mg PO DAILY 09/06/16 Clonazepam [Klonopin] 0.5 mg PO BID 10/02/16 Budesonide/Formoterol 160/4.5 [Symbicort 160/4.5 Mcg Inhaler (SP)] 2 puff INHALATION BID #1 inhaler 10/06/16 Levothyroxine [Synthroid] 25 mcg PO DAILY@0600 tab 03/27/17 albuterol sulfate 2.5 mg/3 mL (0.083 %) solution for nebulization 2.5 mg INHALATION Q4H ml 08/01/17 albuterol sulfate HFA 90 mcg/actuation aerosol inhaler 2 puff INHALATION Q4H PRN g 08/01/17 losartan 50 mg tablet 50 mg PO QDAY 08/01/17 omeprazole 40 mg capsule,delayed release 40 mg PO QDAY 08/01/17 pseudoephedrine-guaifenesin ER 120 mg-1,200 mg tab,extend release 12hr 1 tab PO DAILY PRN PRN 08/01/17 rivaroxaban 20 mg tablet 20 mg PO DAILY #90 tab 03/03/18 Primary Care Physician: Alvarez Montanez MD [Primary Care Provider] - Within 2 Weeks Please Follow Up With: Carlota Gregorio NP-C When: 1-2 months Disposition: Home Minutes spent on discharge:: 28 Patient Condition:: Fair Medical Necessity - Tobacco Use Smoking Status: Current every day smoker Tobacco Use: Non-smoker Meaningful Use Info Meaningful Use Diagnoses (Choose all that apply): None applicable Code Visit OBSV E&M: 87317 Observation care discharge
--- NOTE | 2018-03-04 10:03 | DS.PCM_ITS ---
Discharge Date and Diagnosis - Problem List Patient Problems: Active and Suspected Problems (Last Reviewed 03/04/18 @ 00:43 by Quinn Ocampo MD) LEIHG ANN (acute kidney injury) (Acute) Dyspnea (Acute) Date of Admission: 03/03/18 Date of Discharge: 03/04/18 - Primary Discharge Diagnosis Active and Suspected Problems (Last Reviewed 03/04/18 @ 00:43 by Quinn Ocampo MD) LEIGH ANN (acute kidney injury) (Acute) - Secondary Discharge Diagnosis Chronic Problems (Last Reviewed 03/04/18 @ 00:43 by Quinn Ocampo MD) Obesity (Chronic) Restrictive lung disease (Chronic) Chronic narcotic dependence (Chronic) STEPHANIE (obstructive sleep apnea) (Chronic) COPD (chronic obstructive pulmonary disease) (Chronic) Hypothyroidism (Chronic) Depression (Chronic) Seizure disorder (Chronic) TIA (transient ischemic attack) (Chronic) Morbid obesity (Chronic) Anxiety and depression (Chronic) HTN (hypertension) (Chronic) HLD (hyperlipidemia) (Chronic) Hospital Course and Treatment Imaging Results: Clinical Impression(s) from Imaging Studies Chest X-Ray 03/03/18 20:57 IMPRESSION: Elevated right hemidiaphragm and mild basilar atelectasis Electronically Signed: Oziel Burroughs MD at 21:40 EDT , Service support , Chest CTA 03/03/18 21:51 IMPRESSION: Generalized interstitial thickening with groundglass opacities which may be on the basis of pulmonary interstitial edema or inflammatory disease.. No evidence for pulmonary embolus Electronically Signed: Oziel Burroughs MD at 22:41 EDT , Service support , Get Christianson DO. Operations: None Procedures: None Summary of Care Provided: The patient is a 52 year old F presents with shortness of breath. Patient was never hypoxic. 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 Patient to get it prescribed again. Patient underwent a CT scan injury of the chest that was embolism. It was a poor quality did mention groundglass pasty but no evidence of any pneumonia, clinically. Patient did have some acute kidney injury with creatinine 1.4 baseline of 0.8. Creatinine today is improved to 1.07. Patient is otherwise stable. Patient will have amatory pulse ox to see if she requires any oxygen at home. Patient certainly does not require oxygen at rest. Patient did have some chest pain that was atypical. EKG and troponin series were negative. [] Discharge Diet: Low fat/ Low Cholesterol Discharge Activity: Return to Normal Activity Call your doctor if you observe: - - increased shortness of breath. Home Medications: Medications to take at Discharge levETIRAcetam tablet [Keppra tablet] 500 mg PO BID 11/29/15 Labetalol [Trandate (Beta Juan José)] 100 mg PO BID #60 tab 04/08/16 Calcium Carbonate [Calcium] 600 mg PO DAILY 09/06/16 Clonazepam [Klonopin] 0.5 mg PO BID 10/02/16 Budesonide/Formoterol 160/4.5 [Symbicort 160/4.5 Mcg Inhaler (SP)] 2 puff INHALATION BID #1 inhaler 10/06/16 Levothyroxine [Synthroid] 25 mcg PO DAILY@0600 tab 03/27/17 albuterol sulfate 2.5 mg/3 mL (0.083 %) solution for nebulization 2.5 mg INHALATION Q4H ml 08/01/17 albuterol sulfate HFA 90 mcg/actuation aerosol inhaler 2 puff INHALATION Q4H PRN g 08/01/17 losartan 50 mg tablet 50 mg PO QDAY 08/01/17 omeprazole 40 mg capsule,delayed release 40 mg PO QDAY 08/01/17 pseudoephedrine-guaifenesin ER 120 mg-1,200 mg tab,extend release 12hr 1 tab PO DAILY PRN PRN 08/01/17 rivaroxaban 20 mg tablet 20 mg PO DAILY #90 tab 03/03/18 Primary Care Physician: Alvarez Montanez MD [Primary Care Provider] - Within 2 Weeks Please Follow Up With: Carlota Gregorio NP-C When: 1-2 months Disposition: Home Minutes spent on discharge:: 28 Patient Condition:: Fair Medical Necessity - Tobacco Use Smoking Status: Current every day smoker Tobacco Use: Non-smoker Meaningful Use Info Meaningful Use Diagnoses (Choose all that apply): None applicable Code Visit OBSV E&M: 87240 Observation care discharge
[2018-03-04] MEDS: Calcium (Elemental) 500 MG Tablet PO (11:11)
[2018-03-04] MEDS: Labetalol 100 MG Tablet PO (11:11)
[2018-03-04] MEDS: Losartan Potassium 50 MG Tablet PO (11:11)
[2018-03-04] MEDS: levETIRAcetam 500 MG Tablet PO (11:11)
[2018-03-04] MEDS: clonazePAM 0.5 MG Tablet PO (11:15)
--- NOTE | 2018-03-04 12:30 | CASEMGMT ---
PAT ALBA received update by nursing that patient qualified for home oxygen. PAT ALBA obtained script for home oxygen from Dr. Nobles. PAT ALBA discussed home oxygen with patient and her first choice for DME is [facility]. Referral sent to [facility] and arranged for oxygen to be delivered to hospital prior to discharge. PAT ALBA will continue to follow this patient and plan for a safe discharge.
== END 2018-03-04 14:22 | disposition home or self-care (01) ==
LOC: ED 21:11 → MS3 03-04 00:52
PROVIDERS: Internal Medicine Critical Care Medicine; Admitting Provider Hospitalist; Emergency Provider Emergency Medicine; Family Provider Internal Medicine; PCP Internal Medicine
DX: N17.9 Acute kidney failure, unspecified (principal); J96.21 Acute and chronic respiratory failure with hypoxia; R06.09 Other forms of dyspnea; G47.33 Obstructive sleep apnea (adult) (pediatric); J44.9 Chronic obstructive pulmonary disease, unspecified; E78.5 Hyperlipidemia, unspecified; I10 Essential (primary) hypertension; E03.9 Hypothyroidism, unspecified; Z79.899 Other long term (current) drug therapy; G40.909 Epilepsy, unspecified, not intractable, without status epilepticus; E66.01 Morbid (severe) obesity due to excess calories; Z68.42 Body mass index [BMI] 45.0-49.9, adult; Z71.3 Dietary counseling and surveillance; M79.605 Pain in left leg; M79.604 Pain in right leg; Z79.01 Long term (current) use of anticoagulants; Z86.711 Personal history of pulmonary embolism; F11.20 Opioid dependence, uncomplicated; Z99.81 Dependence on supplemental oxygen; Z86.718 Personal history of other venous thrombosis and embolism; R73.03 Prediabetes; Z91.19 Patient's noncompliance with other medical treatment and regimen
CPT/HCPCS: 36415; 71045; 71275; 80048; 80053; 83880; 84484; 85025; 87633; 93005; 93970; 94640; 96361; 96374; 96375; 96376; 97162; 97166; 99218; 99251; 99284; J7030; J7040; A4216; G0378; G0463; J2405

== ENCOUNTER 2018-03-21 14:51 | Emergency (ER) | payer MEDICAID, SELFPAY ==
[2018-03-21 14:51] VITALS: BP 162/103; PULSE 75; RESP 20; TEMP 36.2; O2SAT 97; BMI 46.7
--- NOTE | 2018-03-21 15:39 | ED.DCSUM_ITS ---
- ER Visit Summary Date of Service: 03/21/18 Chief Complaint: lower back injury History of Present Illness: The patient is a 52 F who presents with severe left lower back pain after an injury today. Patient states she bent over to get the coffee creamer out of the refrigerator, when she felt sharp pain in her lower back. She has had similar back injuries in the past. Pain is worse with movement. She is taking Tylenol without relief of the pain. She denies any associated symptoms such as numbness or tingling in the legs, fever, abdominal pain, urinary or bowel retention or incontinence. Physical Examination: Vital signs: afebrile, hemodynamically stable, no hypoxia on room air General: well nourished, well developed, obese, in no distress but appears uncomfortable Skin: warm, dry, no rash, no pallor HEENT: normocephalic and atraumatic; PERRL, EOMI, moist mucous membranes Cardiovascular: regular rate and rhythm without murmurs, no peripheral edema, 2 + pulses all distal extremities Respiratory: No increased work of breathing, lungs are clear to auscultation bilaterally, no rales, rhonchi or wheezing Abdominal: Abdomen is soft, nontender with normoactive bowel sounds, no guarding or rebound, no masses MSK: Moves all extremities, no deformities, normal strength; tenderness to palpation of the left lumbar paraspinal musculature. No midline tenderness deformities or step-offs. Negative straight leg raise in the sitting position bilaterally. Distal strength and sensation are intact. Neuro: Awake and alert, oriented ?4. No facial droop, sensation and motor function intact and symmetric Test Results: [] Emergency Department Course and Treatment: Patient is on Xarelto for history of pulmonary embolism, and thus is limited in what pain medication she can take. She cannot take NSAIDs and she is allergic to tramadol. Patient is already taking Tylenol at home. She was given a dose of [place] in the emergency department as well as 1 dose of Flexeril. She is to take Tylenol at home for pain and can use the Flexeril for muscle spasm. She was given a prescription for 5 [place] to use for severe uncontrolled pain, and was advised not to mix the [place] with any of her benzodiazepines. Patient had no red flag symptoms concerning for cauda equina syndrome, epidural hematoma, epidural abscess or other acute spinal pathology. She was discharged home. Treatment Plan: [] Disposition: [] Impression: acute lumbar strain, left This note was generated with [employer] dictation software. It may contain incorrect words, spelling, and punctuation that were not noted in review of the chart prior to signing ED Disposition - Plan for ED Patient: Disposition: Home or Assisted Living Chief Complaint: Back Instructions: ED Sprain Strain Lumbar Prescriptions: Hydrocodone/Acetaminophen [[place] 5-325 Tablet] 1 ea PO 4X/DAY PRN PRN 2 Days #5 tab PRN Reason: Pain Cyclobenzaprine [Flexeril] 10 mg PO TID PRN #20 tab PRN Reason: Muscle Spasm Referrals: Alvarez Montanez MD [Primary Care Provider] - 1 Week if not improving Additional Instructions: Use the Flexeril to help with muscle spasms and use Tylenol for pain. You were prescribed a few [place] to reserve for severe pain. Do not take the [place] at the same time as any anxiety medications, such as Lorazepam or clonazepam, because it could make you overly sleepy or stop breathing. If you have any worsening of your condition or any new concerning symptoms, please return immediately to the emergency department for another evaluation.
[2018-03-21] MEDS: HYDROcodone Bitartrate/Apap 5/325 Tablet PO (15:47)
[2018-03-21 15:49] VITALS: BP 158/99; PULSE 78; RESP 20; O2SAT 98
== END 2018-03-21 16:03 | disposition home or self-care (01) ==
LOC: ED 15:50
PROVIDERS: Emergency Provider Emergency Medicine; Family Provider Internal Medicine; PCP Internal Medicine
DX: S39.012A Strain of muscle, fascia and tendon of lower back, initial encounter (principal); M62.830 Muscle spasm of back; X50.1XXA Overexertion from prolonged static or awkward postures, initial encounter; Y93.9 Activity, unspecified; Y92.9 Unspecified place or not applicable; Y99.9 Unspecified external cause status; E66.9 Obesity, unspecified; Z72.0 Tobacco use; Z79.01 Long term (current) use of anticoagulants; Z99.81 Dependence on supplemental oxygen; Z79.899 Other long term (current) drug therapy; Z86.711 Personal history of pulmonary embolism
CPT/HCPCS: 99283

== ENCOUNTER 2018-08-31 11:22 | Emergency (ER) | payer MEDICAID, SELFPAY ==
[2018-08-31 11:23] VITALS: BP 166/107; PULSE 83; RESP 17; TEMP 36.7; O2SAT 98; BMI 49.5
--- NOTE | 2018-08-31 11:42 | CT_ITS ---
STUDY: CT ABDOMEN AND PELVIS WITHOUT CONTRAST REASON FOR EXAM: Female, 52 years old. Right-sided flank pain RADIATION DOSAGE (If Supplied By Facility): CTDIvol = ( 24.13 ) mGy, DLP = ( 1428.85 ) mGycm TECHNIQUE: Transaxial images were obtained from the dome of the diaphragm to the symphysis pubis without oral contrast, and without intravenous contrast. Sagittal and coronal images were reconstructed. Individualized dose optimization techniques were used for this CT. COMPARISON: August 18, 2017 CT abdomen pelvis FINDINGS: Lung bases demonstrate no evidence for consolidative process. Hepatic size appears prominent. No pericardial effusion. Small hiatal hernia Liver and spleen appear unremarkable. Adrenal glands and the pancreas are within normal limits. Evidence for prior cholecystectomy. Bowel gas pattern is nonobstructive. No evidence for acute appendicitis seen. No evidence for mesenteric adenopathy. A few scattered uncomplicated colonic diverticulosis. No evidence for acute diverticulitis. No free air within the peritoneal cavity. No free fluid in the pelvis. Kidneys demonstrate no evidence for hydronephrosis. No evidence for ureterolithiasis. Low-attenuation lesion in the left kidney noted measuring up to 1.8 cm possibly a renal cyst however this needs further assessment with sonography to exclude renal neoplasm nonetheless was present on previous examination from August 18, 2017 Osseous structures demonstrate no acute abnormalities. Degenerative changes of the lumbar spine. No acute fractures. IMPRESSION: No evidence for obstructive uropathy. Uncomplicated colonic diverticulosis. Low-attenuation structure in the left kidney presumably a renal cyst however this can be assessed with sonography. Electronically Signed: Guanaco Navarrete, at 12:28 EST Tel , Service support , CT/Abdomen/Pelvis without Cont
--- NOTE | 2018-08-31 11:43 | ED.VISSUMM ---
- ER Visit Summary Date of Service: 08/31/18 Chief Complaint: Right flank pain, right breast redness History of Present Illness: The patient is a 52 F who presents with right flank pain. She has had this for 4 days. It has been intermittent in the right flank area. She has a history of kidney stones. The last one was 6-7 months ago. She admits to some dysuria as well as mild hematuria. She denies fevers. She took nothing for this at home. She also has a bite on her right breast. It was draining. It has been there for 5 days. They noticed more redness. Physical Examination: Vital signs reviewed. HEENT exam unremarkable. Heart is regular rate and rhythm without murmurs. Lungs are clear to auscultation. Abdomen is soft and nontender. She does have CVA tenderness on the right. Extremities reveal no edema. Skin exam with female digital advertising specialist shows a healing abscess of the right breast. There is surrounding erythema. There is no fluctuance. No drainage at this time. Neurologic exam normal. Test Results: Laboratory studies show a hemoglobin of 11.3. Chemistry normal. She has 100 leukocytes in the urine. 0-5 white blood cells and 0-5 red blood cells. CAT scan of the abdomen and pelvis reveals a renal cyst only. There are no kidney stones or ureterolithiasis noted. Emergency Department Course and Treatment: Patient received morphine and still complained of pain so she is given 0.5 mg of Dilaudid. She has no kidney stones or kidney infection. However due to the breast cellulitis I will put her on Bactrim which will cover any UTI of 1 is present. I will give her analgesia for home. She will follow-up with her PCP Treatment Plan: [] Disposition: Discharge Impression: Right flank pain Right breast cellulitis This note was generated with [employer] dictation software. It may contain incorrect words, spelling, and punctuation that were not noted in review of the chart prior to signing ED Disposition - Plan for ED Patient: Referrals: Alvarez Montanez MD [Primary Care Provider] -
[2018-08-31] MEDS: 0.9% Normal Saline 1,000 ML 250 ML IV (11:49)
[2018-08-31] MEDS: Ondansetron 4 MG/2 ML Vial IV (11:49)
[2018-08-31] MEDS: Morphine 4 MG/ML Syringe IV (11:49)
[2018-08-31 11:53] VITALS: BP 163/109; PULSE 79; RESP 18; TEMP 36.7; O2SAT 95
[2018-08-31 12:21] LABS: Anion Gap 9 (5-15); BUN 12 mg/dL (7-18); BUN/Creat Ratio 13.8 RATIO (10-20); Calcium,Total 9.2 mg/dL (8.5-10.1); Chloride 107 mmol/L (98-107); Creatinine, Serum 0.87 mg/dL (0.55-1.02); EST Glomerular Filtration Rate 73 mL/min (>60); Est Glom Filt Rate - Afr Amer 88 mL/min (>60); Estimated Creatinine Clearance 68.07 ml/min; Glucose 100 mg/dL (74-106); Sodium Level 140 mmol/L (136-145)
[2018-08-31 12:27] LABS: Absolute Lymphocyte Count 2.13 X10^3/ul (0.83-4.51); Absolute Neutrophil Count 5.2 X10^3/uL (2.0-7.7); Basophil# 0.03 X10^3/uL; Basophil% 0.4 % (0-1); Eosinophil# 0.17 X10^3/uL; Eosinophils% 2.1 % (0-5); Hematocrit 36.8 % (37-47); Hemoglobin 11.3 g/dl (12.0-15.0); Lymphocyte # 2.13 X10^3/ul (4.0); Lymphocyte % 26.4 % (19-41); Mean Corp Hgb Conc 30.7 g/gl (32-36); Mean Corpuscular Hgb 30.5 pg (27.0-32.0); Mean Corpuscular Volume 99.5 fL (81-99); Mean Platelet Vol. 10.8 fl (6.2-12.0); Monocyte# 0.52 X10^3/uL; Monocyte% 6.4 % (0-10); Neutrophil # 5.21 X10^3/uL (2.7-7.7); Neutrophil % 64.5 % (47-70); POSITIVE COUNT NO; POSITIVE DIFFERENTIAL NO; POSITIVE MORPHOLOGY NO; Platelet Count 294 K/mm3 (150-450); RBC Distribution Width CV 13.2 % (11.6-14.6); RBC Distribution Width SD 48.2 fl (35.1-43.9); White Blood Count 8.1 K/mm3 (4.4-11.0)
[2018-08-31 12:40] LABS: Mucous, Urine 0 SEEN /hpf (<or=2+)
[2018-08-31 12:42] LABS: Color, Urine Yellow (Yellow); Glucose, Dipstick Normal (Normal); Ketone-Dipstick 5 mg/dl (Negative); Leukocyte Esterase-Dipstick 100 /ul (Negative); Nitrite-Dipstick Negative (Negative); Occult Blood-Urine 25 /ul (Negative); Protein-Dipstick 15 mg/dl (Negative); Specific Gravity, Urine 1.015 (1.002-1.030); Urine Bilirubin Dipstick Negative (Negative); Urine Clarity Sl. Cloudy (Clear); Urine Urobilinogen Normal (Normal)
[2018-08-31 12:49] LABS: White Blood Cells 0-5 SEEN /hpf (0-5)
[2018-08-31 12:50] LABS: Bacteria RARE /hpf (None Seen); Red Blood Cells-Urine 0-5 SEEN /hpf (0-5); Squamous Epithelial Cells - UA 5-10 SEEN /hpf (5-10)
--- NOTE | 2018-08-31 13:08 | ED.DEP ---
ED Disposition - Plan for ED Patient: Disposition: Home or Assisted Living Instructions: ED Flank Pain Uncertain Cause Prescriptions: Hydrocodone Bitart/Apap 5-325 [[place] 5MG-325MG] 1 tab PO Q4H PRN PRN 2 Days #5 tab PRN Reason: Pain Smz/Tmp Ds [Bactrim Ds] 1 tab PO BID #14 tab Referrals: Alvarez Montanez MD [Primary Care Provider] -
[2018-08-31] MEDS: Smz/Tmp Ds Tablet 1 TABLET PO (13:09)
[2018-08-31] MEDS: HYDROmorphone 0.5 MG/0.5 ML SYRINGE IV (13:09)
[2018-08-31 13:14] VITALS: BP 165/109; PULSE 67; RESP 16; O2SAT 95
== END 2018-08-31 13:20 | disposition home or self-care (01) ==
PROVIDERS: Emergency Provider Emergency Medicine; Family Provider Internal Medicine; PCP Internal Medicine
DX: R10.9 Unspecified abdominal pain (principal); N61.1 Abscess of the breast and nipple; R30.0 Dysuria; R31.9 Hematuria, unspecified; N28.1 Cyst of kidney, acquired; J44.9 Chronic obstructive pulmonary disease, unspecified; I10 Essential (primary) hypertension; Z72.0 Tobacco use; Z86.711 Personal history of pulmonary embolism; Z87.442 Personal history of urinary calculi; Z79.899 Other long term (current) drug therapy
CPT/HCPCS: 74176; 80048; 81001; 85025; 96361; 96374; 96375; 99284; J7030; A4216; J2405

== ENCOUNTER 2019-02-03 13:32 | Emergency (ER) | payer MEDICAID, SELFPAY ==
[2019-02-03 13:33] VITALS: BP 165/100; PULSE 108; RESP 18; TEMP 36.6; O2SAT 97; BMI 47.5
[2019-02-03 13:44] VITALS: BP 152/106; PULSE 108; RESP 17; O2SAT 96
--- NOTE | 2019-02-03 13:57 | RAD_ITS ---
STUDY: X-RAY - LUMBAR SPINE REASON FOR EXAM: Female, 53 years old. Six-day history of low back pain. TECHNIQUE: 3 view(s) of the lumbar spine were obtained. COMPARISON: None FINDINGS: Normal lumbar lordosis. There is no substantial scoliosis. There is a normal alignment of the vertebrae. Mild anterior spondylosis at the L3-L4 level. Moderate degree of disc space narrowing at the L4-L5 and L5-S1 levels. Facet joint osteoarthritis. The soft tissue structures are unremarkable. RAD/Lumbar Spine 2 or 3 Views IMPRESSION: Degenerative changes of the spine, as detailed above. Electronically Signed: Jason Coleman, at 15:06 EDT , Service support ,
[2019-02-03 14:04] VITALS: BP 139/91; PULSE 93; RESP 15; O2SAT 97
[2019-02-03] MEDS: Morphine 4 MG/ML Syringe SC (14:12)
[2019-02-03] MEDS: Orphenadrine 60 MG/2 ML Ampul IM (14:15)
[2019-02-03 14:30] LABS: Mucous, Urine 0 SEEN /hpf (<or=2+); Red Blood Cells-Urine 0 SEEN /hpf (0-5)
[2019-02-03 14:33] LABS: Color, Urine Yellow (Yellow); Glucose, Dipstick Normal (Normal); Ketone-Dipstick Negative (Negative); Leukocyte Esterase-Dipstick 100 /ul (Negative); Nitrite-Dipstick Negative (Negative); Occult Blood-Urine Negative /ul (Negative); Protein-Dipstick Negative (Negative); Specific Gravity, Urine 1.005 (1.002-1.030); Urine Bilirubin Dipstick Negative (Negative); Urine Clarity Sl. Cloudy (Clear); Urine Urobilinogen Normal (Normal)
[2019-02-03 14:41] LABS: Bacteria 1+ /hpf (None Seen); Squamous Epithelial Cells - UA 0-5 SEEN /hpf (5-10); White Blood Cells 10-25 SEEN /hpf (0-5)
--- NOTE | 2019-02-03 15:34 | ED.VISSUMM ---
- ER Visit Summary Date of Service: 02/03/19 Chief Complaint: Back pain History of Present Illness: The patient is a 53 F with right lower back pain. Symptoms have been going on for 6 days. Denies injury or inciting factor. Worse with movement. She went to urgent care and was prescribed Flexeril. She is also taking Tylenol, but the meds are not helping. She had some right lower extremity paresthesias that have resolved. No other neurologic symptoms. No other GI or symptoms. No fevers. No history of back surgery. She does have a history of PE and takes Xarelto. She also reports a history of pyelonephritis. Physical Examination: Afebrile and vital signs unremarkable except for heart rate of 108. Patient appears uncomfortable but not toxic or in distress. Heart regular rhythm. Lungs clear. Abdomen soft and nontender. Right lower lumbar spine is tender to palpation. No CVA tenderness. Skin appears normal. Straight leg raise negative. Pulses strong and equal. Good strength and sensation. Test Results: Urinalysis shows signs of infection. Culture pending. X-ray showed degenerative changes but nothing acute. Emergency Department Course and Treatment: Patient has signs of UTI on her urinalysis. Culture pending. Patient treated with Macrobid. I do not believe her symptoms are related to pyelonephritis. Her back pain is in her lower back and not over her CVA. There is no sign of bleeding which makes a kidney stone less likely. I do not find any other indication for diagnostic testing or imaging. Patient will be treated with a course of Macrobid as well as pain medicine. Continue muscle relaxers as needed. Follow-up with family doctor. Return for any new or worsening issues. Treatment Plan: As above Disposition: Discharge Impression: 1. Right back pain 2. UTI This note was generated with [employer] software. It may contain incorrect words, spelling, and punctuation that were not noted in review of the chart prior to signing ED Disposition - Plan for ED Patient: Referrals: Alvarez Montanez MD [Primary Care Provider] -
--- NOTE | 2019-02-03 15:37 | ED.DEP ---
ED Disposition - Plan for ED Patient: Instructions: PYELONEPHRITIS, Female (Adult) Prescriptions: Nitrofurantoin Macrocrystals [Macrobid] 100 mg PO Q12 #20 cap Prescription Printed Hydrocodone Bitart/Apap 5-325 [[place] 5MG-325MG] 1 tab PO Q6H PRN PRN 3 Days #12 tab PRN Reason: Pain Prescription Printed Referrals: Alvarez Montanez MD [Primary Care Provider] -
[2019-02-03] MEDS: Nitrofurantoin Macrocrystals 100 MG Capsule PO (15:51)
[2019-02-03 15:55] VITALS: BP 137/85; PULSE 94; RESP 20; O2SAT 93
== END 2019-02-03 15:57 | disposition home or self-care (01) ==
LOC: ED 13:56
PROVIDERS: Emergency Provider Emergency Medicine; Family Provider Internal Medicine; PCP Internal Medicine
DX: M54.5 Low back pain (principal); N39.0 Urinary tract infection, site not specified; I10 Essential (primary) hypertension; F17.210 Nicotine dependence, cigarettes, uncomplicated; Z79.01 Long term (current) use of anticoagulants; Z79.899 Other long term (current) drug therapy; Z86.711 Personal history of pulmonary embolism; Z87.440 Personal history of urinary (tract) infections
CPT/HCPCS: 72100; 81001; 87086; 87088; 96372; 99282

== ENCOUNTER 2019-09-06 16:00 | Emergency (ER) | payer MEDICAID, SELFPAY ==
[2019-09-06 16:02] VITALS: BP 159/115; PULSE 111; RESP 20; TEMP 36.6; O2SAT 98; BMI 37.1
--- NOTE | 2019-09-06 16:03 | ED.RN ---
PT ALSO REPORTS CHEST PAIN AND PALPITATIONS.
--- NOTE | 2019-09-06 16:15 | EKG12_ITS ---
Test Reason : CP Blood Pressure : / mmHG Vent. Rate : 110 BPM Atrial Rate : 110 BPM P-R Int : 128 ms QRS Dur : 084 ms QT Int : 368 ms P-R-T Axes : 020 -15 004 degrees QTc Int : 498 ms Sinus tachycardia Inferior infarct , age undetermined , cannot be excluded Abnormal ECG Confirmed by GISELA BATISTA, FAY ([id number]), publishing editor SAUMYA PERAZA ([id number]) on 09/10/2019 8:51:47 AM Referred By: BRIAN Confirmed By:FAY HIGGINS MD
--- NOTE | 2019-09-06 16:20 | RAD_ITS ---
STUDY: X-RAY CHEST REASON FOR EXAM: Female, 53 years old. chest pain TECHNIQUE: Frontal view of the chest was performed COMPARISON: 03 March 2018 FINDINGS: The lungs are clear and expanded. There is no demonstrated pleural abnormality. Normal size heart. Normal mediastinum and timi. Normal visualized pulmonary arteries. Normal visualized aortic arch and descending thoracic aorta. Normal visualized thoracic spine. Normal visualized ribs, clavicles, and shoulders. There is no demonstrated abnormality of the visualized soft tissue structures of the upper abdomen. RAD/Chest 1 View (Portable) IMPRESSION: Normal x-ray examination of the chest. Electronically Signed: Sia Way, at 16:38 EST Tel , Service support ,
--- NOTE | 2019-09-06 16:27 | ED.VIS.GEN ---
History of Present Illness Chief Complaint: Back Detail of Chief Complaint: Back pain, chest pain, palpitations, syncope Informant: Patient Onset: Days Current Severity: Moderate Maximum Severity: Moderate Narrative: Patient presents with a one-week history of left lower back pain. She states it does somewhat wrap around into the groin area. Has no urinary symptoms. Over the past 3 days she has had some chest heaviness and palpitations. She states when she checks her pulse ox at home she is noted her heart rate to be up into the 130s. She does report getting winded with exertion and having syncope. She is only been taking Tylenol at home for her symptoms. Patient does have a known history of PE and is currently on Xarelto. She denies missing any doses. - Past Medical History (1) Dependence on continuous supplemental oxygen Status: Chronic (2) Anxiety and depression Status: Chronic (3) COPD (chronic obstructive pulmonary disease) Status: Chronic (4) Depression Status: Chronic (5) HLD (hyperlipidemia) Status: Chronic (6) HTN (hypertension) Status: Chronic (7) Hypothyroidism Status: Chronic (8) STEPHANIE (obstructive sleep apnea) Status: Chronic (9) Pulmonary embolism Status: Chronic (10) Restrictive lung disease Status: Chronic (11) Seizure disorder Status: Chronic (12) TIA (transient ischemic attack) Status: Chronic (13) History of cholecystectomy Status: Resolved (14) History of hysterectomy Status: Resolved (15) Hx of appendectomy Status: Resolved Past Medical History - Allergies and Home Meds Allergies/Adverse Reactions: Allergies aspirin Allergy (Verified 09/06/19 16:02) Hives ibuprofen Allergy (Verified 09/06/19 16:02) Hives iodine Allergy (Verified 09/06/19 16:02) Hives ketorolac tromethamine [From Toradol] Allergy (Verified 09/06/19 16:02) Angioedema meperidine HCl [From Demerol] Allergy (Verified 09/06/19 16:02) Other nitroglycerin Allergy (Verified 09/06/19 16:02) Angioedema HEADACHE, TONGUE SWELLING. Penicillins [PCN] Allergy (Verified 09/06/19 16:02) Hives tramadol HCl [From Ultram] Allergy (Verified 09/06/19 16:02) Angioedema BENTYL Allergy (Uncoded 09/06/19 16:02) Itching Primary Care Physician: Ramirez Alcazar MD [STAFF PHYSICIAN] - As soon as possible Alvarez Montanez MD [Primary Care Provider] - Prior records reviewed: Yes Surgical History: appendectomy, cholecystectomy, hysterectomy Lives: Spouse/ Significant Other Smoking Status: Former smoker - Family History Maternal Family History: Family History (Last Updated 08/01/17 @ 10:34 by Yolanda Skinner) Brother Myocardial infarction Father Colon cancer Family History: Reports: Cancer Paternal Family History: Family History (Last Updated 08/01/17 @ 10:34 by Yolanda Skinner) Brother Myocardial infarction Father Colon cancer Family History: Reports: Cancer Review of Systems General: Denies: Fever Eyes: Denies: Visual changes - bilaterally ENT: Denies: Bilateral ear pain Cardiovascular: Reports: Chest pain, Palpitations, Heart racing Respiratory: Reports: Dyspnea, Cough Gastrointestinal: Denies: Abdominal pain, Vomiting Musculoskeletal: Reports: Back pain Skin: Denies: Rash Neurological: Denies: Headache, Parasthesia Allergy: Denies: Uticaria Physical Exam Vital Signs/Narrative: Vital Signs Temp Pulse Resp BP Pulse Ox 09/06/19 16:02 97.8 F 111 H 20 H 159/115 H 98 Inital Vital Signs reviewed: Yes General: Well nourished, Well developed Head: Normocephalic ENT: Moist mucous membranes Neck: Supple Cardiovascular: Tachycardia Respiratory: No distress, CTA bilaterally Abdomen: Soft, Nontender Back: - - Reproducible tenderness in the left lower lumbar paraspinal muscles.. Negative for: CVA tenderness Extremities: Nontender Skin: Normal color Neurological: Alert, Oriented x3 Psychological: Normal affect Diagnostic/Tx/Re-eval Impressions Chest X-Ray 09/06/19 16:20 IMPRESSION: Normal x-ray examination of the chest. Electronically Signed: Sia Way, at 16:38 EST Tel , Service support , Chest CTA 09/06/19 17:24 IMPRESSION: 1. No central large pulmonary embolism. 2. Technically limited study, unable to evaluate lobar and smaller arteries. 3. Refer to ultrasonography of the lower extremity venous system for risk stratification of the patient with possible venous thrombus embolic disease. 4. Obstructive sleep apnea. Electronically Signed: Sia Way, at 18:15 EST Tel , Service support , Abdomen/Pelvis CT 09/06/19 17:25 IMPRESSION: 1. No acute abdominal findings, no change since prior. 2. Left renal lesion, unclear etiology, refer to confirmatory imaging to exclude possibility of renal cell carcinoma. 3. Severe hepatomegaly, mild splenomegaly. Electronically Signed: Sia Way, at 18:18 EST Tel , Service support , 09/06/19 16:20 Chest 1 View (Portable) [RAD] Stat 09/06/19 17:24 CTA Chest W/WO Contrast [CT] Stat 09/06/19 17:25 Abdomen/Pelvis without Cont [CT] Stat Laboratory Results 09/06/19 09/06/19 09/06/19 16:15 16:15 16:45 WBC 9.3 RBC 3.61 L Hgb 11.1 L Hct 35.8 L MCV 99.2 H MCH 30.7 MCHC 31.0 L RDW Std Deviation 52.7 H RDW Coeff of Immanuel 14.3 Plt Count 315 MPV 9.8 Immature Gran % (Auto) 0.300 Neut % (Auto) 66.7 Lymph % (Auto) 25.6 [place] % (Auto) 4.8 Eos % (Auto) 2.0 Baso % (Auto) 0.6 Absolute Neuts (auto) 6.2 Absolute Lymphs (auto) 2.38 Nucleated RBC % 0 Sodium 139 Potassium 4.1 Chloride 110 H Carbon Dioxide 24.0 Anion Gap 5 BUN 18 Creatinine 1.12 H Estim Creat Clear Calc 54.38 Est GFR (MDRD) Af Amer 65 Est GFR (MDRD) Non-Af 54 L BUN/Creatinine Ratio 16.1 Glucose 115 H Calcium 9.0 Troponin I < 0.015 Urine Color Yellow Urine Clarity Sl. Cloudy Urine pH 6.0 Ur Specific [place] 1.020 Urine Protein 30 H Urine Glucose (UA) Normal Urine Ketones 5 H Urine Occult Blood 250 H Urine Nitrite Negative Urine Bilirubin Negative Urine Urobilinogen Normal Ur Leukocyte Esterase 500 H Urine RBC 50-100 SEEN Urine WBC 0-5 SEEN Ur Squamous Epith Cells 0-5 SEEN Urine Bacteria 0 SEEN Urine Mucus 0 SEEN - EKG Initial EKG Interpretation: Sinus Tachycardia - Sinus tach at 110. No acute ST change. - Medical Decision Making Patient was initially given morphine and Zofran. Test results are discussed with patient and at bedside. Patient does not know of any prior renal problems and we discussed close follow-up to determine what this left renal lesion is. She has continued to have left flank pain will be given a dose of 0.5 mg Dilaudid. On repeat evaluation patient states her pain is down to about a 5. She wants to try to go home. She has done well with Percocet in the past and prescription be sent to [facility] for her. She is given return instructions. She is referred to urology for further evaluation of this left renal lesion. ED Disposition - Plan for ED Patient: Disposition: Home or Assisted Living Diagnosis: Flank pain Instructions: FLANK PAIN, Uncertain Cause Prescriptions: Oxycodone HCl/Acetaminophen [Percocet 5/325] 1 tab PO Q6H PRN PRN 3 Days #12 tab PRN Reason: Pain Transmission Status: Received by [id number] Referrals: Alvarez Montanez MD [Primary Care Provider] - Ramirez Alcazar MD [STAFF PHYSICIAN] - As soon as possible Additional Instructions: As discussed, your CT scan revealed a lesion on your left kidney that needs further workup. Please follow-up with Dr Alcazar as soon as possible.
[2019-09-06 16:29] LABS: Absolute Lymphocyte Count 2.38 X10^3/uL (0.83-4.51); Absolute Neutrophil Count 6.2 X10^3/uL (2.0-7.7); Basophil# 0.06 X10^3/uL; Basophil% 0.6 % (0-1); Eosinophil# 0.19 X10^3/uL; Hematocrit 35.8 % (37-47); Hemoglobin 11.1 g/dL (12.0-15.0); Lymphocyte # 2.38 X10^3/ul (4.0); Lymphocyte % 25.6 % (19-41); Mean Corpuscular Hgb 30.7 pg (27.0-32.0); Mean Corpuscular Volume 99.2 fL (81-99); Mean Platelet Vol. 9.8 fl (6.2-12.0); Monocyte# 0.45 X10^3/uL; Monocyte% 4.8 % (0-10); NRBC Flagged by Analyzer 0 % (0-5); Neutrophil # 6.17 X10^3/uL (2.7-7.7); Neutrophil % 66.7 % (47-70); Platelet Count 315 K/mm3 (150-450); RBC Distribution Width CV 14.3 % (11.6-14.6); RBC Distribution Width SD 52.7 fl (35.1-43.9); Red Blood Count 3.61 M/mm3 (4.2-5.4); White Blood Count 9.3 K/mm3 (4.4-11.0)
[2019-09-06 16:30] VITALS: PULSE 96; RESP 24; O2SAT 94
[2019-09-06] MEDS: 0.9% Normal Saline 1,000 ML 150 ML IV (16:31)
[2019-09-06] MEDS: Ondansetron 4 MG/2 ML Vial IV (16:31)
[2019-09-06] MEDS: Morphine 4 MG/ML Syringe IV (16:32)
--- NOTE | 2019-09-06 16:43 | ED.RN ---
PT ASSISTED X1 TO RESTROOM, PT STATED SHE USES 3L OF O2 AT HOME. ASKED PT IF SHE WANTED ME TO GET O2 TANK TO WALK HER TO THE RESTROOM. PT STATED SHE DID NOT NEED THE OXYGEN TO GOT TO THE RESTROOM. PT WALKED TO RESTROOM IN A STABLE MANNER. PT ASSISTED BACK TO PT'S ROOM, NO HYPOXIA. DR. TORRES MADE AWARE.
[2019-09-06 16:46] VITALS: BP 159/84; PULSE 103; RESP 19; O2SAT 95
[2019-09-06 16:55] LABS: Anion Gap 5 (5-15); BUN 18 mg/dL (7-18); BUN/Creat Ratio 16.1 RATIO (10-20); Chloride 110 mmol/L (98-107); Creatinine, Serum 1.12 mg/dL (0.55-1.02); EST Glomerular Filtration Rate 54 mL/min (>60); Est Glom Filt Rate - Afr Amer 65 mL/min (>60); Estimated Creatinine Clearance 54.38 ml/min; Glucose 115 mg/dL (74-106); Potassium 4.1 mmol/L (3.5-5.1); Sodium Level 139 mmol/L (136-145)
[2019-09-06 16:55] LABS: Bacteria 0 SEEN /hpf (None Seen); Mucous, Urine 0 SEEN /hpf (<or=2+)
[2019-09-06 16:57] LABS: Color, Urine Yellow (Yellow); Glucose, Dipstick Normal (Normal); Ketone-Dipstick 5 mg/dl (Negative); Leukocyte Esterase-Dipstick 500 /ul (Negative); Nitrite-Dipstick Negative (Negative); Occult Blood-Urine 250 /ul (Negative); Protein-Dipstick 30 mg/dl (Negative); Urine Bilirubin Dipstick Negative (Negative); Urine Clarity Sl. Cloudy (Clear); Urine Urobilinogen Normal (Normal)
[2019-09-06 17:07] LABS: Red Blood Cells-Urine 50-100 SEEN /hpf (0-5); Squamous Epithelial Cells - UA 0-5 SEEN /hpf (5-10); White Blood Cells 0-5 SEEN /hpf (0-5)
--- NOTE | 2019-09-06 17:24 | CT_ITS ---
STUDY: CTA CHEST REASON FOR EXAM: Female, 53 years old. Shortness of breath, prior pulmonary embolus RADIATION DOSAGE (If Supplied By Facility): CTDIvol = ( 15.07 ) mGy, DLP = ( 673.10 ) mGycm TECHNIQUE: The examination was performed with the intravenous administration of IV 100mL [id number]-370. Post-processing of the angiographic images was performed, with multiplanar reformation and 3D reconstruction. Individualized dose optimization techniques were used for this CT. COMPARISON: 03 March 2018 FINDINGS: Examination is severely technically limited due to a variety of factors. Contrast enhancement is suboptimally low. Enhancement in the main pulmonary artery is 192 HU, guidelines recommended for diagnostic study greater than 250. Central and proximal right and left pulmonary arteries are evaluable. Lobar and segmental branches are not. Image noise is severely elevated. There is motion artifact due to nonbreath holding. There is no pulmonary embolism in the main, right or left pulmonary arteries. Remainder of the arteries are not evaluable. There is no right heart strain. There is heterogeneous pulmonary opacity, presumably atelectasis. The scan was performed in expiratory phase and the airways are partially collapsed. There is obstructive sleep apnea dynamic collapse of the upper airway. There is no pneumothorax, pleural edema or pulmonary effusions. Cardiac chambers are normal in size and shape. Pericardium is normal. There is severe elevation of BMI. CT/CTA Chest W/WO Contrast IMPRESSION: 1. No central large pulmonary embolism. 2. Technically limited study, unable to evaluate lobar and smaller arteries. 3. Refer to ultrasonography of the lower extremity venous system for risk stratification of the patient with possible venous thrombus embolic disease. 4. Obstructive sleep apnea. Electronically Signed: Sia Way, at 18:15 EST Tel , Service support ,
--- NOTE | 2019-09-06 17:25 | CT_ITS ---
STUDY: CT ABDOMEN AND PELVIS WITHOUT CONTRAST REASON FOR EXAM: Female, 53 years old. Left flank pain RADIATION DOSAGE (If Supplied By Facility): CTDIvol = ( 24.18 ) mGy, DLP = ( 1413.58 ) mGycm TECHNIQUE: Transaxial images were obtained from the dome of the diaphragm to the symphysis pubis without oral contrast, and without intravenous contrast. Sagittal and coronal images were reconstructed. Individualized dose optimization techniques were used for this CT. COMPARISON: 31 August 2018 FINDINGS: The visualized lung bases are unremarkable. The visualized portions of the heart are within normal limits. The liver is severely enlarged.. The gallbladder is surgically removed.. Spleen is mildly enlarged.. Normal pancreas. Normal bilateral adrenal glands. There are no urinary calculi or hydronephrosis. There is a stable 2 cm left renal hyperdense rounded exophytic lesion, incompletely characterized. Normal visualized stomach. Normal small intestine. Normal colon. There is normal-appearing appendiceal stump. Normal abdominal aorta. Normal inferior vena cava. There is severe intra-abdominal and extra-abdominal lipomatosis and elevated BMI. Normal urinary bladder. The uterus is surgically removed. Normal abdominal wall. Normal osseous structures. Appearance is similar to prior. CT/Abdomen/Pelvis without Cont IMPRESSION: 1. No acute abdominal findings, no change since prior. 2. Left renal lesion, unclear etiology, refer to confirmatory imaging to exclude possibility of renal cell carcinoma. 3. Severe hepatomegaly, mild splenomegaly. Electronically Signed: Sia Way, at 18:18 EST Tel , Service support ,
[2019-09-06] MEDS: HYDROmorphone 0.5 MG/0.5 ML SYRINGE IV (19:22)
[2019-09-06 19:24] VITALS: BP 161/123; PULSE 89; RESP 20; O2SAT 97
[2019-09-06 20:05] VITALS: BP 146/122; PULSE 91; RESP 15; O2SAT 97
== END 2019-09-06 20:26 | disposition home or self-care (01) ==
PROVIDERS: Emergency Provider Emergency Medicine; PCP Internal Medicine
DX: R10.9 Unspecified abdominal pain (principal); N28.9 Disorder of kidney and ureter, unspecified; M54.5 Low back pain; R07.9 Chest pain, unspecified; R55 Syncope and collapse; R00.2 Palpitations; R00.0 Tachycardia, unspecified; G40.909 Epilepsy, unspecified, not intractable, without status epilepticus; J44.9 Chronic obstructive pulmonary disease, unspecified; I10 Essential (primary) hypertension; E03.9 Hypothyroidism, unspecified; E78.5 Hyperlipidemia, unspecified; G47.33 Obstructive sleep apnea (adult) (pediatric); F32.9 Major depressive disorder, single episode, unspecified; F41.9 Anxiety disorder, unspecified; Z79.01 Long term (current) use of anticoagulants; Z99.81 Dependence on supplemental oxygen; Z88.5 Allergy status to narcotic agent; Z88.0 Allergy status to penicillin; Z86.711 Personal history of pulmonary embolism; Z86.73 Personal history of transient ischemic attack (TIA), and cerebral infarction without residual deficits; Z87.891 Personal history of nicotine dependence; Z90.49 Acquired absence of other specified parts of digestive tract; Z90.710 Acquired absence of both cervix and uterus
CPT/HCPCS: 71045; 71275; 74176; 80048; 81001; 84484; 85025; 93005; 96361; 96374; 96375; 99285; J7030; Q9967; A4216; J2405

== ENCOUNTER 2020-07-01 12:47 | Emergency (ER) | payer MEDICAID, SELFPAY ==
[2020-07-01 12:49] VITALS: BP 150/100; PULSE 82; PULSE 92; RESP 17; TEMP 36.8; O2SAT 91; O2SAT 92; BMI 47.7
--- NOTE | 2020-07-01 13:51 | ED.VIS.GEN ---
History of Present Illness Chief Complaint: Fall Informant: Patient Narrative: Patient is a 54-year-old female who presents to the emergency department for a fall today. She states that she slipped on water. She feels like she did a split and injured her ankles bilaterally. She is also complaining of left hip pain. She thought she heard a pop. She was not able to ambulate since the event. She denies hitting her head or losing consciousness. She denies any neck pain or back pain. She currently rates her pain as severe. She refuses to move the legs due to pain. She denies any chest pain, shortness of breath or palpitations. No abdominal pain or nausea/vomiting. States that she did have a fall yesterday as well. She thinks she might of hit her head at that time. She denies any headaches or vision changes. Past Medical History - Allergies and Home Meds Allergies/Adverse Reactions: Allergies aspirin Allergy (Verified 07/01/20 12:48) Hives ibuprofen Allergy (Verified 07/01/20 12:48) Hives iodine Allergy (Verified 07/01/20 12:48) Hives ketorolac tromethamine [From Toradol] Allergy (Verified 07/01/20 12:48) Angioedema meperidine HCl [From Demerol] Allergy (Verified 07/01/20 12:48) Other nitroglycerin Allergy (Verified 07/01/20 12:48) Angioedema HEADACHE, TONGUE SWELLING. Penicillins [PCN] Allergy (Verified 07/01/20 12:48) Hives tramadol HCl [From Ultram] Allergy (Verified 07/01/20 12:48) Angioedema BENTYL Allergy (Uncoded 09/06/19 16:02) Itching Primary Care Physician: Alvarez Montanez MD [Primary Care Provider] - 2 Days Prior records reviewed: Yes Surgical History: appendectomy, cholecystectomy, hysterectomy Smoking Status: Former smoker - Family History Maternal Family History: Family History (Last Updated 08/01/17 @ 10:34 by Yolanda Skinner) Brother Myocardial infarction Father Colon cancer Family History: Reports: Cancer Paternal Family History: Family History (Last Updated 08/01/17 @ 10:34 by Yolanda Skinner) Brother Myocardial infarction Father Colon cancer Family History: Reports: Cancer Review of Systems All systems negative except as indicated General: Denies: Chills, Fever, Sweats Eyes: Denies: Visual changes - bilaterally, Diplopia ENT: Denies: Rhinorrhea, Sore throat Cardiovascular: Denies: Chest pain, Palpitations Respiratory: Denies: Dyspnea, Cough, Dyspnea on exertion Gastrointestinal: Denies: Abdominal pain, Nausea, Vomiting, Diarrhea Genitourinary: Denies: Dysuria, Hematuria, Frequency Musculoskeletal: Reports: Extremity Pain. Denies: Back pain Skin: Denies: Rash, Wounds Neurological: Denies: Headache, Weakness, Numbness Physical Exam Vital Signs/Narrative: Vital Signs Temp Pulse Resp BP Pulse Ox 07/01/20 12:49 98.3 F 82 17 150/100 H 91 General: Well nourished, Well developed, No Acute Distress Head: Normocephalic, Atraumatic Eyes: Perrl, EOMI ENT: Moist mucous membranes, No rhinorrhea Neck: Supple, Nontender Cardiovascular: Regular rate, Regular rhythm, No murmurs Respiratory: No distress, CTA bilaterally, Chest nontender Abdomen: Soft, Nontender, Nondistended, Normal bowel sounds Back: Nontender, Normal Inspection. Negative for: Spinal tenderness Extremities: No edema, Tenderness - To anterior compression of left hip. She also has tenderness to ankles bilaterally. Ankles are inverted. Sensation is intact. 2+ DP pulse. Skin: Normal color, No rash Neurological: Alert, Oriented x3, Cranial nerves II-XII grossly intact, Normal Strength, Normal Sensation Psychological: Normal affect, Normal Mood Diagnostic/Tx/Re-eval - Medical Decision Making Patient presents to the ED for a fall. She had a fall yesterday but would not come in for that 1 she did not fall today. She is complaining of bilateral ankle pain as well as left-sided hip pain. Will check x-rays. Patient given [place] for symptomatic relief. Patient's x-ray did not reveal any acute traumatic findings. No dislocations or fractures noted. She was able to walk in the ED. She does feel comfortable going home at this time. Will discharge home in stable condition. Will recommend symptomatic treatment in the meantime. She is to follow-up with her PCP. Warning signs and symptoms which to return to the ED are reviewed. She understands and is agreeable with this plan. ED Disposition - Plan for ED Patient: Disposition: Home or Assisted Living Diagnosis: Fall, Ankle pain, Hip pain Instructions: ED Ankle Sprain (Adult), ED Fall Prevention Referrals: Alvarez Montanez MD [Primary Care Provider] - 2 Days
[2020-07-01] MEDS: HYDROcodone Bitartrate/Apap 5/325 Tablet PO (14:10)
--- NOTE | 2020-07-01 14:20 | RAD_ITS ---
STUDY: X-RAY - LEFT ANKLE REASON FOR EXAM: Female, 54 years old. FALL, PAIN TECHNIQUE: 3 view(s) of the ankle. COMPARISON: None. FINDINGS: Normal visualized distal tibia and fibula. Normal medial and lateral malleoli. Normal tibiotalar articulation and ankle mortise. Normal visualized talus and calcaneus. The visualized subtalar, talonavicular, calcaneocuboid and tarsal articulations are normal. The soft tissue structures are unremarkable. RAD/Ankle min 3 Views IMPRESSION: Normal x-ray examination of the ankle. Electronically Signed: Jason Coleman, at 14:41 EST , Service support ,
--- NOTE | 2020-07-01 14:20 | RAD_ITS ---
STUDY: X-RAY - RIGHT ANKLE REASON FOR EXAM: Female, 54 years old. FALL, PAIN TECHNIQUE: 3 view(s) of the ankle. COMPARISON: None. FINDINGS: Normal visualized distal tibia and fibula. Normal medial and lateral malleoli. Normal tibiotalar articulation and ankle mortise. Normal visualized talus and calcaneus. The visualized subtalar, talonavicular, calcaneocuboid and tarsal articulations are normal. Soft tissue swelling. RAD/Ankle min 3 Views IMPRESSION: Soft tissue swelling. Electronically Signed: Jason Coleman, at 14:42 EST , Service support ,
--- NOTE | 2020-07-01 14:20 | RAD_ITS ---
STUDY: X-RAY - PELVIS AND LEFT HIP REASON FOR EXAM: Female, 54 years old. FALL, PAIN TECHNIQUE: 3 views of the pelvis and hip. COMPARISON: None. FINDINGS: There is a non-specific bowel gas pattern. There are multiple calcified phleboliths. Normal bilateral iliac wings, sacroiliac joints and visualized sacrum. Normal bilateral superior and inferior pubic rami. There is narrowing with sclerosis of the pubic symphysis. Normal bilateral ischial tuberosities. Normal visualized femoral head. Normal acetabulum. Normal hip joint. RAD/HIP, UNI W/ Pelvis 2-3 Views IMPRESSION: Normal x-ray examination of the pelvis and hip. Electronically Signed: Jason Coleman, at 14:39 EST , Service support ,
[2020-07-01 15:56] VITALS: BP 139/89; PULSE 94; RESP 22; O2SAT 96
--- NOTE | 2020-07-01 15:57 | ED.RN ---
THIS NURSE REVIEWED D/C INSTRUCTIONS WITH PT. PT VERBALIZED UNDERSTANDING OF INSTRUCTIONS. IV D/C. IV CATHETER INTACT. PT TOLERATED WELL. PT DENIES FURTHER NEEDS OR QUESTIONS AT THIS TIME. PT INFORMED TO NOTIFY STAFF WHEN HER RIDE GETS TO THE ER
== END 2020-07-01 15:58 | disposition home or self-care (01) ==
PROVIDERS: Emergency Provider Emergency Medicine; PCP Internal Medicine
DX: M25.572 Pain in left ankle and joints of left foot (principal); M25.571 Pain in right ankle and joints of right foot; M25.552 Pain in left hip; W01.0XXA Fall on same level from slipping, tripping and stumbling without subsequent striking against object, initial encounter; Y93.9 Activity, unspecified; Y92.9 Unspecified place or not applicable; Y99.9 Unspecified external cause status; Z79.01 Long term (current) use of anticoagulants; Z79.899 Other long term (current) drug therapy; Z87.891 Personal history of nicotine dependence
CPT/HCPCS: 73502; 73610; 99284

== ENCOUNTER 2021-03-22 10:13 | Day surgery (SDC) | payer MEDICAID, SELFPAY ==
--- NOTE | 2021-03-21 15:22 | PCM.HP.BLA ---
History and Physical Date of Admission: 03/22/21 Felisha Perrin 1965 REFERRING PHYSICIAN: MD Casey CHIEF COMPLAINT: abnormal breast lesions ? left breast papilloma by needle core biopsy HPI: The patient is a 55 year old female presents with abnormal left breast radiographs. She denies palpable breast masses. She states that she has had left nipple discharge in the past. She denies previous breast biopsies or breast surgeries. Two sisters had breast cancer and one may also have had ovarian cancer. Of note, she has a history of multiple blood clots and last had a PE about a year ago and is on xarelto. Mammograms/tomograms 01/04/2021 There is a 7 mm focal asymmetry in the left breast at 7 o'clock in the retroareolar region. No other significant masses or calcifications are seen in the breast. US left breast 01/04/2021 There is 0.7 cm x 0.5 cm x 0.8 cm oval mass with a circumscribed margin in the left breast at 7 o'clock in the retroareolar region. This oval mass is hypoechoic with a well-defined boundary and internal echoes. There is no axillary adenopathy. IMPRESSION: SUSPICIOUS FINDING - BIOPSY SHOULD BE CONSIDERED The 0.7 cm x 0.5 cm x 0.8 cm oval mass in the left breast is suspicious of malignancy. An ultrasound guided biopsy is recommended. She underwent US guided left breast needle core biopsy with findings of left breast ? intraductal papilloma PAST MEDICAL HISTORY ? Amaurosis fugax 04/03/2012 ? Anxiety ? Arthritis ? Asthma ? Cystocele with rectocele 07/09/2015 ? Depression ? Eating disorder, unspecified 10/10/2012 ? Emphysema ? Epilepsy (HCC) Last 06/19/15 ? GERD (gastroesophageal reflux disease) ? History of recurrent deep vein thrombosis (DVT) [facility] record ? Hyperlipidemia ? Hypertension ? Hypothyroidism ? Mass of colon on CT scan 02/06/2017 ? Morbid obesity (HCC) ? STEPHANIE (obstructive sleep apnea) 02/02/2016 [facility] record ? Panic disorder with agoraphobia 10/10/2012 ? PE (pulmonary embolism) 2011 questionable ? Prediabetes 12/21/2015 ? Pulmonary embolism (HCC) 01/17/2016 ? Severe ankle sprain 09/16/2015 ? Smoker 1 PPD ? 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 Ulcer of the stomach and intestine PAST SURGICAL HISTORY ? APPENDECTOMY 2000 ? COLONOSCOP W/ OR W/O [facility] SPEC 03/14/2017 Colonoscopy ? REMOVAL GALLBLADDER 1998 ? TOTAL ABDOM HYSTERECTOMY 1999 benign Current Outpatient Medications ? losartan (COZAAR) 100 mg tablet Take 1 tablet by mouth once daily. ? omeprazole (PRILOSEC) 40 mg capsule Take 1 capsule by mouth once daily. ? atorvastatin (LIPITOR) 80 mg tablet Take 1 tablet by mouth once daily. ? furosemide (LASIX) 20 mg tablet Take 1 tablet by mouth once daily. ? spironolactone (ALDACTONE) 50 mg tablet Take 1 tablet by mouth once daily. ? levETIRAcetam (KEPPRA) 500 mg tablet Take 1 tablet by mouth twice daily. TAKE ONE (1) TABLET BY MOUTH TWICE DAILY ? venlafaxine ER (EFFEXOR XR) 75 mg 24 hr capsule Take 75 mg by mouth once daily. Plus 37.5 mg capsule. [facility] Psych[facility]. ? venlafaxine ER (EFFEXOR XR) 37.5 mg 24 hr capsule Take 37.5 mg by mouth once daily. Plus 75 mg capsule. [facility] ? metoprolol succinate ER (TOPROL XL) 100 mg Take 1 tablet by mouth once daily. ? ipratropium-albuterol (DUONEB) 0.5 mg-3 mg(2.5 mg base)/3 mL nebu INHALE 1 VIAL VIA NEBULIZER EVERY 4 HOURS NEEDED ? albuterol HFA (VENTOLIN HFA) 90 mcg/actuation inhaler INHALE 2 PUFFS BY MOUTH THREE TIMES A DAY NEEDED FOR SHORTNESS OF BREATH/WHEEZING/COUGH ? mometasone-formoterol (DULERA) 100-5 mcg/actuation inhaler Inhale 2 Puffs as instructed twice daily. ? mometasone (ELOCON) 0.1 % cream APPLY 1 APPLICATION TO AFFECTED AREA ONCE DAILY NEEDED FOR FACIAL RASH. AVOID EYES NOSE MOUTH ? calcium carbonate (CALCIUM 600 ORAL) Take 1 tablet by mouth once daily. ? rivaroxaban (XARELTO) 20 mg tablet Take 1 tablet by mouth daily with dinner. Per cardiology, Dr. Bagley. ? COMPOUNDED PRESCRIPTION PORTABLE OXYGEN VIA NASAL CANNULA. 2 LPM FOR USE WITH EXERTION, ACTIVITY. Dx:R09.02; J44.9; J98.4 ? clonazePAM (KLONOPIN) 0.5 mg tablet Take 1 tablet by mouth twice daily as needed for Anxiety. Per [facility] PSYCHIATRIST. ALLERGIES: Aspirin, Demerol [Meperidine (Pf)], Fish, Onion, [place], Peanut, Penicillins, Shellfish, Toradol [Ketorolac Tromethamine], and Ultram [Tramadol] PERSONAL HISTORY: ? Smoking status: Former Smoker Packs/day: 1.00 Years: 32.00 Pack years: 32.00 Types: Cigarettes Quit date: 01/21/2016 Years since quittin.9 ? Smokeless tobacco: Never Used ? Tobacco comment: 1-2 cigarettes daily Substance Use Topics ? Alcohol use: No ? Drug use: No FAMILY HISTORY ? Cancer Mother age 89 leukemia No diabetes ? other (GI cancer) Father age 79 stomach cancer ? other (CA) Brother at early age ? Breast Cancer Sister 3 sisters REVIEW OF SYSTEMS: General: The patient denies fatigue, denies weight loss, denies weight gain, denies feeling hot, and denies feelings of cold. Eyes: The patient denies glaucoma, denies eye injury/surgery, does not wear glasses or contacts. Ear/Nose/Throat: The patient denies allergies, denies hayfever, denies ear infections, and denies bloody noses. Cardiovascular: The patient denies chest pain, denies heart disease, NOTES high blood pressure,denies cardiac stent, denies prior heart attack, denies irregular heart beat, NOTES high cholesterol, denies poor circulation, denies heart failure, other cardiac issues, denies claudication, denies cold feet, denies peripheral arterial stent. Respiratory: The patient denies tuberculosis, denies pneumonia, NOTES frequent cough, NOTES pulmonary embolism, NOTES shortness of breath, and denies coughing up blood. Gastrointestinal: The patient denies difficulty swallowing, NOTES acid reflux, denies ulcers, denies vomiting, denies jaundice/hepatitis, denies gallbladder problems, denies black or tarry stools, denies hemorrhoids, denies bleeding from rectum, denies diverticulitis, denies constipation, denies diarrhea, denies loss of stool control, and denies hernias. Kidney/Bladder: The patient denies kidney stones, denies urine infections, and denies bloody urine. Skin: The patient denies a history of skin cancer, denies bleeding/changing moles, and denies a history of skin rash. Neurologic: The patient NOTES a history of epilepsy/convulsions, denies headaches, denies head/spinal injuries, and denies stroke/TIA. Psychiatric: The patient denies psychiatric medications, denies depression, and denies voices, denies substance abuse. Endocrine: The patient denies thyroid disorders, denies diabetes, and denies hormonal problems. Hematologic: The patient denies a history of bruising, denies bleeding, and denies anemia, NOTES blood clots. Infections: The patient denies a history of measles and mumps, denies rheumatic fever, and denies sexually transmitted diseases. Musculoskeletal: The patient denies back pain/injury, denies back problems, denies sciatica, NOTES knee/foot trouble, NOTES arthritis, or denies gout. Obstetrical: menarche onset at age 13, , first at age 16, breast feeding denies, BCP use - denies, surgical menopause at age 39 DARRIAN/BSO, taking OTC hormones for the past 2 years When was patient's last Mammogram screening? N/A Last Colonoscopy: Unknown Quinn Castanon LPN PHYSICAL EXAMINATION: General: The patient is 55 year old female, well nourished, well hydrated in no acute distress. The patient is oriented to time, place, and person. VITALS: Pulse 119, temperature 36.6 ?C (97.9 ?F), height 167.6 cm (5' 6), weight 126.6 kg (279 lb 3.2 oz), SpO2 98 %. Body mass index is 45.06 kg/m?. Head ? Normocephalic. EOM intact with sclera clear and no icterus noted. Neck - supple with no jugular venous distention noted. Trachea is midline. No thyroid enlargement or thyroid nodules detected. No masses noted. Chest/breast ? no asymmetry of breasts noted, no suspicious skin lesions noted, no nipple discharge and both nipples everted, no breast masses noted Lungs ? clear to auscultation. Normal breath sounds. No rales/rhonchi/wheezing noted. No labored breathing noted, such as retractions. No cough heard. Heart ? normal S1 and S2 auscultated. No rubs/clicks/murmurs noted. Regular rate. Abdomen ? soft and benign. Normal bowel sounds No abdominal bruits noted. Difficult to determine if any masses or organomegaly due to body habitus. Extremities ? no calf tenderness noted. No pitting edema noted. Skin ? normal skin integrity. Lymph ? no cervical adenopathy detected, no supraclavicular adenopathy detected, no axillary adenopathy detected Neurological ? gait normal, no focal deficits noted Psych ? calm and appropriate RADIOLOGIC STUDIES: As Noted IMPRESSION: left breast papilloma by needle core biopsy, coagulation disorder PLAN: I have discussed the above with the patient. I have offered left breast open biopsy via wire localization I have explained the procedure to the patient. I have counseled the patient as to the risks of the procedure, including but not limited to: infection, bleeding, injury to any blood vessels/nerves, scar tissue, wound infections, complications of anesthesia, etc. ? the patient understands. Because of her history of multiple blood clots, patient probably has hypercoagulable syndrome and is on xarelto, she will require bridging with lovenox for the procedure. I have explained this to her and given her instructions for the lovenox and prescribed this. I have answered all questions to the patient?s satisfaction and the patient has no further questions. Diagnoses: (R92.8) Abnormal ultrasound of breast (primary encounter diagnosis) (D68.9) Clotting disorder (HCC) Yari Lui MD
[2021-03-22] VITALS (12 sets, daily range): BP systolic 95–138; BP diastolic 53–78; PULSE 64–72; RESP 16; TEMP 35.6–36.7; O2SAT 94–100; BMI 46.3
--- NOTE | 2021-03-22 10:08 | BI_ITS ---
SURGICAL BREAST SPECIMEN RADIOGRAPH CLINICAL: Document presence of tissue clip marker in biopsy specimen. FINDINGS: Specimen shows presence of tissue clip marker. Pathology is pending and an addendum to the biopsy report will be performed after the final pathologic diagnosis is rendered. Electronically Signed: Javier Adams MD at 14:26 EDT Tel , Service support , BI/Breast Biopsy Specimen
[2021-03-22] MEDS: Lactated Ringers 1,000 ML 75 ML IV ×2 (11:03→14:32)
--- NOTE | 2021-03-22 12:00 | BRBX_PTH ---
PATIENT: LUIS A CUMMINGS [place] [facility] [place][id number] AGE/SX: 55/F ROOM: RE03/22/[address]: Dr. Yari Liu MD : 1965 BED: DIS: 03/22/2021 SPEC #: [id number] RECD: 03/22/21 14:21 STATUS: JESUS REJhon #: [id number] GREGORIA: 03/22/21 12:[address]: Yari Lui DEPT: SURGICAL PATHOLOGY RECD BY: Nidia Harris ENTERED: 03/23/21 13:12 SP TYPE: BREAST BX OTHR DR: Dr. Alvarez Montanez MD Tissues: Left breast, NOS Procedures: Surgery Specimen Level V HEADER OPERATION: Excisional left breast biopsy via wire loc PRE-OP DIAGNOSIS: Left breast papilloma by needle core biopsy TISSUE SUBMITTED: Left breast biopsy MICROSCOPIC DIAGNOSIS Left breast, excisional biopsy with wire localization: Papillary ductal carcinoma insitu. Negative for invasive carcinoma. See comment. AM:am 03/31/2021 COMMENT The lesion measures 1.2 x 0.8 cm (measured microscopically) and is located at less than 0.1mm from the inked margin of excision. This case is seen in consultation with Dr. Lui of [place] who concurs with the diagnosis. The complete consultative report is viewable in EMR. Case has been reviewed in consultation with Dr. Nolen who concurs with the above diagnosis. IDC:SJ MICROSCOPIC DESCRIPTION Slides are reviewed. GROSS DESCRIPTION Received in fixative is one container labeled with the patient's name and designated left breast biopsy. The specimen consists of a piece of fibroadipose tissue with needle localization measuring 3.5 x 3 x 2.5 cm. The specimen is not oriented. The specimen is inked, serially sectioned and reveals ill-defined lesion close to the resection margin measuring 0.5 cm in greatest dimension. Sections reveal a philip, indurated lesion measuring 0.7 x 0.7 x 0.5 cm. It is present close to one resection margin. Most of the specimen shows yellow adipose cut surfaces with scant fibrous area. The entire specimen is submitted in six cassettes from one end to another end. Sections will be submitted after additional fixation. / KENIA:[place] 03/23/21 TC:0 CPT: 65485
[2021-03-22] MEDS: Lidocaine 1% /Epi 1:100 (20ml) 20 ML Vial (13:20)
--- NOTE | 2021-03-22 13:55 | OP.PCM_ITS ---
Report of Operation Date of Procedure: 03/22/21 Pre-Operative Diagnosis: left breast intraductal papilloma Post-Operative Diagnosis: same Surgery/Procedure Performed:: excisional left breast biopsy Description of Surgical Findings:: papilloma of left breast Surgeon: Yari Lui sales representative publications: Meredith López Type of Anesthesia: Local MAC Anesthesiologist: Maria Luisa Mcdaniel Specimen's removed: left breast tissue Estimated Blood Loss (mL): < 10 ml Fluids Replaced: 800 ml RL Description of Procedure: After informed consent was given, the patient was brought into the Breast Stereotactic Radiology suite. Appropriate time out protocol was followed. The patient was then placed in the prone position on the [place] stereotactic table. The patient?s left breast was placed in the opening at the head of the table. A sample case porter compression mammogram was then obtained. The marker clip that was previously placed was identified. Stereo pictures of the lesion were then taken for XYZ coordinates. The Kopans needle was then po sitioned where it would be entering into the patient?s breast. The skin at this site was then cleansed with a surgical skin preparation. The skin and subcutaneous tissues at this site were then infiltrated with 1% xylocaine. The Kopans needle was then positioned into the patient?s breast at the proper coordinates of depth. A sample case porter film was obtained which revealed the wire in proper position. The patient was then placed in the supine position and the wire was taped into place. A unilateral mammogram in the CC and MLO view were then taken for use in the OR. The patient tolerated this portion of the procedure well and was brought to the AC awaiting surgery in the OR. The patient was then brought to the Operating Room. Appropriate time out protocol was followed. The patient was then placed on the operating table in the supine position. A wire had already been placed in the stereotactic biopsy room in the radiology department as described above. The left breast with the wire in placed was then prepped with a sterile surgical skin preparation and sterile surgical drapes were placed. The skin and subcutaneous tissues at the site of the breast lesion was then infiltrated with 1% xylocaine with epinephrine. The breast radiographs were reviewed as to the location of the wire and the marker clip to ascertain the best advantage for an incision site. A circumareolar on the medial aspect was then made near the wire entrance site with a 15 blade scalpel and carried down through to the subcutaneous tissues. Hemostasis was controlled with electrocautery. The wire was then palpated out within the breast tissue. It was brought into the wound from outside. The breast tissue surrounding the wire was then carefully palpated out and from the surrounding tissues using electrocautery. The breast tissue, once from the breast, was then forwarded to the radiology department, where a specimen mammogram revealed that the marker clip was within the specimen. The breast tissue was then forwarded to pathology for analysis. The wound cavity was carefully examined. No further suspicious tissue was palpated or visualized. Hemostasis was carefully controlled with electrocautery. The subdermal tissues were then approximated with vicryl suture. The incision was then reapproximated close using running monocryl suture. Cavilon and steristrips were then placed to reinforce the skin closure. Sponge, needle, and instrument count were verified and correct at the time of skin closure. A sterile dressing was then applied. The patient was then brought to the Recovery Room in stable condition.
--- NOTE | 2021-03-22 15:26 | EX.PCM.DISCH ---
Discharge Instructions Follow Up Care Test Results: Test results from this visit will be discussed in further detail at your follow-up appointment, if applicable. Discharge Plan Admission Attending Provider: Yari Lui Primary Care Provider: Alvarez Montanez Instructions Patient Instructions: ED Chest Pain, Noncardiac Additional Instructions / Restrictions: Recommended pain control regimen - May take 600 mg ibuprofen (Motrin) and then in 3-4 hours, may take 650 mg acetaminophen (Tylenol), then in 3-4 hours may take 600 mg ibuprofen, then in 3-4 hours may take 650 mg acetaminophen and so on for 2-3 days May take narcotic pain medication for pain that is not controlled by above and at night for comfort through the night Leave dressings in place May shower, do not scrub in the areas of the dressings as they may unravel. Do not soak - no tub baths/swimming Ice applied to areas of discomfort may help For breast surgeries - wear supportive bra during the day to prevent the weight of your breasts from pulling on the incisional site. Please follow up with Dr. Lui on March 30 at 1:40pm at the [facility] If any questions, please call my office at and ask the tankage grinder operator for the general surgery nurses desk Discharge Orders/Prescriptions Prescriptions: New hydrocodone-acetaminophen 5-325 mg tablet 1 tab PO Q8H 5 Days Qty: 15 RF: 0 No Action omeprazole 40 mg capsule,delayed release(DR/EC) 40 mg PO DAILY RF: 0 albuterol sulfate [ProAir HFA] 90 mcg/actuation HFA aerosol inhaler 2 puff INHALATION Q4H PRN (Reason: shortness of breath or wheezing) RF: 0 losartan 100 mg tablet 100 mg PO DAILY RF: 0 atorvastatin 80 mg tablet 80 mg PO DAILY RF: 0 furosemide 20 mg tablet 20 mg PO DAILY RF: 0 spironolactone 50 mg tablet 50 mg PO DAILY RF: 0 venlafaxine 75 mg capsule,extended release 24hr 75 mg PO DAILY RF: 0 metoprolol succinate 100 mg tablet extended release 24 hr 100 mg PO QHS RF: 0 levetiracetam 500 MG tablet 500 mg PO DAILY RF: 0 clonazepam [Klonopin] 0.5 mg Tablet,Disintegrating 0.5 mg PO BID RF: 0 magnesium 200 mg Tablet 200 mg PO DAILY RF: 0 Dulera 100-5 mcg/actuation Hfa Aerosol Inhaler 2 puff INHALATION Q12H PRN (Reason: sob) RF: 0 rivaroxaban 20 mg tablet 20 mg PO DAILY Qty: 90 RF: 3 Referrals / Follow Up: Alvarez Montanez MD [Primary Care Provider] - Disposition Disposition (needs filled in before D/C Order can be placed): Home, Self Care
[2021-03-22] MEDS: HYDROcodone Bitartrate/Apap 5/325 Tablet PO (15:27)
== END 2021-03-22 16:04 | disposition home or self-care (01) ==
LOC: SDC 10:16 → AC 10:16
PROVIDERS: PCP Internal Medicine; Referring Provider Surgery; Visit Provider Surgery
PROC: (CPT 19120; principal; 2021-03-22 11:45)
DX: D24.2 Benign neoplasm of left breast (principal); I10 Essential (primary) hypertension; E03.9 Hypothyroidism, unspecified; E66.01 Morbid (severe) obesity due to excess calories; Z68.42 Body mass index [BMI] 45.0-49.9, adult; E78.5 Hyperlipidemia, unspecified; F32.9 Major depressive disorder, single episode, unspecified; F41.9 Anxiety disorder, unspecified; G47.33 Obstructive sleep apnea (adult) (pediatric); J45.909 Unspecified asthma, uncomplicated; K21.9 Gastro-esophageal reflux disease without esophagitis; M19.90 Unspecified osteoarthritis, unspecified site; G40.909 Epilepsy, unspecified, not intractable, without status epilepticus; Z86.2 Personal history of diseases of the blood and blood-forming organs and certain disorders involving the immune mechanism; Z86.73 Personal history of transient ischemic attack (TIA), and cerebral infarction without residual deficits; Z86.711 Personal history of pulmonary embolism; Z79.01 Long term (current) use of anticoagulants; Z79.899 Other long term (current) drug therapy; Z87.891 Personal history of nicotine dependence
CPT/HCPCS: 00400; 19120; 19281; 76098; 88305; 88307; 88325; J7050; J7120; J2405

== ENCOUNTER 2021-04-05 11:47 | Day surgery (SDC) | payer MEDICAID, SELFPAY ==
--- NOTE | 2021-04-03 14:12 | PCM.HP.BLA ---
History and Physical Date of Admission: 04/05/21 NAME: Felisha Perrin [facility] NO.: [id number] DATE OF SERVICE: 03/30/2021 ? : 1965 ? PRIMARY CARE PHYSICIAN: Alvarez Montanez MD ? Felisha is a patient who is s/p left breast biopsy via wire localization done at [facility] on 03/22/2021.. ? I performed a left sided excisional biopsy via wire localization for findings on needle core biopsy of intraductal papilloma ? The pathology from [facility] - papillary ductal carcinoma in situ, margins are clear, but < 1mm ? The patient notes some bruising since the procedure, still slightly tender. ? ? PAST MEDICAL HISTORY ? Amaurosis fugax 04/03/2012 ? Anxiety ? ? Arthritis ? ? Asthma ? ? Cystocele with rectocele 07/09/2015 ? Depression ? ? Eating disorder, unspecified 10/10/2012 ? Emphysema ? ? Epilepsy (HCC) ? ? Last 06/19/15 ? GERD (gastroesophageal reflux disease) ? ? History of recurrent deep vein thrombosis (DVT) ? ? [facility] record ? Hyperlipidemia ? ? Hypertension ? ? Hypothyroidism ? ? Mass of colon on CT scan 02/06/2017 ? Morbid obesity (HCC) ? ? STEPHANIE (obstructive sleep apnea) 02/02/2016 ? [facility] record ? Panic disorder with agoraphobia 10/10/2012 ? PE (pulmonary embolism) 2011 ? questionable ? Prediabetes 12/21/2015 ? Pulmonary embolism (HCC) 01/17/2016 ? Severe ankle sprain 09/16/2015 ? Smoker ? ? 1 PPD ? Stroke (cerebrum) (HCC) 2008 ? h/o right side weakness ? Ulcer of the stomach and intestine ? ? PAST SURGICAL HISTORY ? APPENDECTOMY ? 2000 ? COLONOSCOP W/ OR W/O [facility] SPEC ? 03/14/2017 ? Colonoscopy ? EXCIS BREAST LES W XRAY MARKER Left 03/22/2021 ? REMOVAL GALLBLADDER ? 1998 ? TOTAL ABDOM HYSTERECTOMY ? 1999 ? benign ? ? Current Outpatient Medications ? enoxaparin (LOVENOX) 30 mg/0.3 mL injection Stop Xarelto 2 days before procedure. Take Lovenox 1 subcutaneous shot every 12 hours the day before the procedure. Do not take Lovenox shots the morning of the procedure. Restart Lovenox shots the day following the procedure every 12 hours for 4 total doses ? losartan (COZAAR) 100 mg tablet Take 1 tablet by mouth once daily. ? omeprazole (PRILOSEC) 40 mg capsule Take 1 capsule by mouth once daily. ? atorvastatin (LIPITOR) 80 mg tablet Take 1 tablet by mouth once daily. ? furosemide (LASIX) 20 mg tablet Take 1 tablet by mouth once daily. ? spironolactone (ALDACTONE) 50 mg tablet Take 1 tablet by mouth once daily. ? levETIRAcetam (KEPPRA) 500 mg tablet Take 1 tablet by mouth twice daily. TAKE ONE (1) TABLET BY MOUTH TWICE DAILY ? venlafaxine ER (EFFEXOR XR) 75 mg 24 hr capsule Take 75 mg by mouth once daily. Plus 37.5 mg capsule. [facility]. ? venlafaxine ER (EFFEXOR XR) 37.5 mg 24 hr capsule Take 37.5 mg by mouth once daily. Plus 75 mg capsule. [facility]. ? metoprolol succinate ER (TOPROL XL) 100 mg Take 1 tablet by mouth once daily. ? ipratropium-albuterol (DUONEB) 0.5 mg-3 mg(2.5 mg base)/3 mL nebu INHALE 1 VIAL VIA NEBULIZER EVERY 4 HOURS NEEDED ? albuterol HFA (VENTOLIN HFA) 90 mcg/actuation inhaler INHALE 2 PUFFS BY MOUTH THREE TIMES A DAY NEEDED FOR SHORTNESS OF BREATH/WHEEZING/COUGH ? mometasone-formoterol (DULERA) 100-5 mcg/actuation inhaler Inhale 2 Puffs as instructed twice daily. ? mometasone (ELOCON) 0.1 % cream APPLY 1 APPLICATION TO AFFECTED AREA ONCE DAILY NEEDED FOR FACIAL RASH. AVOID EYES NOSE MOUTH ? calcium carbonate (CALCIUM 600 ORAL) Take 1 tablet by mouth once daily. ? COMPOUNDED PRESCRIPTION PORTABLE OXYGEN VIA NASAL CANNULA. 2 LPM FOR USE WITH EXERTION, ACTIVITY. Dx:R09.02; J44.9; J98.4 ? clonazePAM (KLONOPIN) 0.5 mg tablet Take 1 tablet by mouth twice daily as needed for Anxiety. Per [facility]. ? ? ALLERGIES: Aspirin, Demerol [Meperidine (Pf)], Fish, Onion, Lipscomb, Peanut, Penicillins, Shellfish, Toradol [Ketorolac Tromethamine], and Ultram [Tramadol] ? PERSONAL HISTORY: Tobacco Use ? Smoking status: Former Smoker ? ? Packs/day: 1.00 ? ? Years: 32.00 ? ? Pack years: 32.00 ? ? Types: Cigarettes ? ? Quit date: 01/21/2016 ? ? Years since quittin.1 ? Smokeless tobacco: Never Used ? Tobacco comment: 1-2 cigarettes daily Vaping Use ? Vaping Use: Never used Substance Use Topics ? Alcohol use: No ? Drug use: No ? REVIEW OF SYSTEMS: General - denies fevers Cardiovascular - denies chest pain Pulmonary - requires supplemental oxygen Gastrointestinal - denies abdominal pain Neurological - denies seizures Genitourinary - denies blood in urine Hematological - on xarelto for chronic PE Skin - denies nonhealing skin wounds Endocrine - denies diabetes, no thyroid problems Psychological ? denies hallucinations ? PHYSICAL EXAMINATION: ? General: The patient is 55 year old female, well nourished, well hydrated in no acute distress. The patient is oriented to time, place, and person. ? VITALS: Blood pressure 136/82, pulse 100, temperature 36.6 ?C (97.8 ?F), weight 127.8 kg (281 lb 12.8 oz), SpO2 94 %. Body mass index is 45.48 kg/m?. ? HEENT: Normal cephalic, atraumatic,. ? Respiratory: Normal respiratory excursion and pattern. ? Cardiac: Examination is regular rate and rhythm. ? Chest - healing wound of left breast with ecchymoses, no evidence of infection ? Abdominal exam: Soft and benign. ? Extremities: no clubbing, cyanosis or edema. No adenopathy. ? IMPRESSION: left breast papillary carcinoma in situ ? PLAN: I have discussed options with patient. Surgical procedure can either be - mastectomy versus lumpectomy to be followed by radiation. I have discussed patient's medical condition with the radiation oncologist, despite her pulmonary condition, she still would be a candidate for radiation therapy to the left breast. Will order lovenox and have patient stop taking her anti-coagulation medication. Scheduled at [facility] for Apr 05. Scheduled for left breast lumpectomy for papillary carcinoma in situ. I have explained risks/benefits to patient, including but not limited to: infection, bleeding, injury to any blood vessels/nerves, scar tissue, cosmetic deformity, wound infection, etc. - she understands. I had offered patient to go to [facility] or [place] for surgery given that lesion is at the nipple and she may likely lose her nipple/areolar complex given wide local excision required to clear margins, she understands this and still wishes to proceed at [facility].. ? 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
[2021-04-05] VITALS (8 sets, daily range): BP systolic 135–170; BP diastolic 87–100; PULSE 64–76; RESP 16–18; TEMP 36.2–36.3; O2SAT 96–100; BMI 47.0
[2021-04-05] MEDS: Lactated Ringers 1,000 ML 75 ML IV (12:52)
[2021-04-05] MEDS: Lidocaine 1% /Epi 1:100 (20ml) 20 ML Vial (13:58)
--- NOTE | 2021-04-05 14:00 | BR_PTH ---
PATIENT: LUIS A CUMMINGS LOC: [facility] [place] U#:[id number] AGE/SX: 55/F ROOM: RE04/05/[address]: Dr. Yari Lui MD : 1965 BED: DIS: 04/05/2021 SPEC #: [id number] RECD: 04/05/21 14:57 STATUS: JESUS REJhon #: [id number] GREGORIA: 04/05/21 14:[address]: Yari Lui DEPT: SURGICAL PATHOLOGY RECD BY: Nidia Harris ENTERED: 04/06/21 11:41 SP TYPE: MAMOPLASTY OTHR DR: Dr. Alvarez Montanez MD Tissues: Left breast, NOS Procedures: Surgery Specimen Level IV HEADER OPERATION: Left breast lumpectomy PRE-OP DIAGNOSIS: Left breast papillary carcinoma in situ TISSUE SUBMITTED: Left breast mass, two short sutures taveras medial border, one short suture taveras superior border, one long suture taveras lateral border MICROSCOPIC DIAGNOSIS Left breast, lumpectomy: Focal intraductal hyperplasia without atypia.. Extensive fat necrosis, chronic inflammation and foreign body giant cell reaction, changes consistent with previous biopsy site. Negative for malignancy. SJ:rg 04/08/2021 COMMENT Please make reference to previous specimen ([id number]) left breast, excisional biopsy with wire localization with diagnosis of ?papillary ductal carcinoma in situ.? MICROSCOPIC DESCRIPTION Slides are reviewed. GROSS DESCRIPTION Received in fixative is one container labeled with the patient's name and designated left breast mass. The specimen consists of a lumpectomy weighing 25 gm and measuring 5.8 x 4 x 3.6 cm. The anterior aspect contains an unremarkable skin fragment measuring 3.2 x 2.7 cm. A well-healed surgical scar measuring 2 cm is present on the skin. The specimen has been oriented by the surgeon. No wire is seen in the specimen. The specimen is differentially inked as follows: anterior - yellow, posterior - black, superior - blue, inferior - green, medial - red and lateral - orange. The specimen is serially sectioned in a medial to lateral fashion to reveal a blood-filled biopsy cavity measuring 3 x 2.2 x 1.3 cm. No mass lesions are identified. The biopsy cavity is located 0.5 cm from its closest (superior) margin of excision. The entire specimen is submitted as follows: 1 ? perpendicular medial margin, 2 ? biopsy cavity with adjacent closest superior margin, 3-17 ? remainder of the specimen. / AM:[place] 04/06/21 TC:5 CPT: 48421
--- NOTE | 2021-04-05 15:11 | PCM.OPRPT ---
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 Appropriate time out protocol was followed. The patient was then placed on the operating table in the supine position. The left breast was then prepped with a sterile surgical skin preparation and sterile surgical drapes were placed. The skin and subcutaneous tissues at the site of the previous biopsy site was then infiltrated with 1% xylocaine with epinephrine. An elliptical incision was made to incorporate the previous biopsy incision and area of biopsy cavity. It was carried down through to the subcutaneous tissues. Hemostasis was controlled with electrocautery. The breast tissue surrounding the biopsy cavity was then carefully from the surrounding breast tissue by sharp dissection. This included the tissue immediately beneath the nipple and a portion of the areolar complex. The nipple was preserved, however a small pie shaped piece of the inner lower aspect of the areola was excised. Dissection continued to keep the biopsy cavity intact and ensure a margin of normal tissue around the cavity - this was continued as sharp dissection it from the normal breast tissue. The biopsy cavity was thus excised and marked with suture for margins. It was then placed in formalin and forwarded to the pathology department. The wound cavity was carefully examined. No further suspicious tissue was palpated or visualized. Hemostasis was carefully controlled with electrocautery. The subdermal tissues were then approximated with vicryl suture - this was done to maintain cosmesis. The incision was then reapproximated close using interrupted 5-0 monocryl suture. Cavilon and steristrips were then placed to reinforce the skin closure. Sponge, needle, and instrument count were verified and correct at the time of skin closure. A sterile dressing was then applied. The patient was then brought to the Recovery Room in stable condition. Complications none noted Admit VTE Documentation VTE Present on Admission: Yes VTE Mechan Device Prophylaxis: SCD's
--- NOTE | 2021-04-05 15:14 | DCINST_ITS ---
Discharge Instructions Follow Up Care Test Results: Test results from this visit will be discussed in further detail at your follow-up appointment, if applicable. Discharge Plan Admission Attending Provider: Yari Lui Primary Care Provider: Alvarez Montanez Instructions Patient Instructions: ED Chest Pain, Noncardiac Additional Instructions / Restrictions: Recommended pain control regimen - May take 600 mg ibuprofen (Motrin) and then in 3-4 hours, may take 650 mg acetaminophen (Tylenol), then in 3-4 hours may take 600 mg ibuprofen, then in 3- 4 hours may take 650 mg acetaminophen and so on for 2-3 days May take narcotic pain medication for pain that is not controlled by above and at night for comfort through the night Leave dressings in place May shower, do not scrub in the areas of the dressings as they may unravel. Do not soak - no tub baths/swimming Ice applied to areas of discomfort may help No lifting/pushing/pulling greater than 20 pounds with left arm for two weeks Regular diet as tolerated, drink plenty of fluids. For breast surgeries - wear supportive bra during the day to prevent the weight of your breasts from pulling on the incisional site. Please call my office for an appointment to see me in 1-2 weeks. Office number is If any questions, please call my office at and ask the lime filter operator for the general surgery nurses desk Discharge Orders/Prescriptions Prescriptions: New oxycodone 5 mg capsule 5 mg PO Q8H PRN (Reason: pain (scale score 7-10)) 5 Days Qty: 10 RF: 0 No Action omeprazole 40 mg capsule,delayed release(DR/EC) 40 mg PO DAILY RF: 0 albuterol sulfate [ProAir HFA] 90 mcg/actuation HFA aerosol inhaler 2 puff INHALATION Q4H PRN (Reason: shortness of breath or wheezing) RF: 0 losartan 100 mg tablet 100 mg PO DAILY RF: 0 atorvastatin 80 mg tablet 80 mg PO DAILY RF: 0 furosemide 20 mg tablet 20 mg PO DAILY RF: 0 spironolactone 50 mg tablet 50 mg PO DAILY RF: 0 venlafaxine 75 mg capsule,extended release 24hr 75 mg PO DAILY RF: 0 metoprolol succinate 100 mg tablet extended release 24 hr 100 mg PO QHS RF: 0 levetiracetam 500 MG tablet 500 mg PO BID RF: 0 clonazepam [Klonopin] 0.5 mg Tablet,Disintegrating 0.5 mg PO BID RF: 0 magnesium 200 mg Tablet 200 mg PO DAILY RF: 0 Dulera 100-5 mcg/actuation Hfa Aerosol Inhaler 2 puff INHALATION Q12H PRN (Reason: sob) RF: 0 rivaroxaban 20 mg tablet 20 mg PO DAILY Qty: 90 RF: 3 Referrals / Follow Up: Alvarez Montanez MD [Primary Care Provider] - Disposition Disposition (needs filled in before D/C Order can be placed): Home, Self Care
[2021-04-05] MEDS: oxyCODONE 5 MG Tablet PO (16:15)
== END 2021-04-05 16:49 | disposition home or self-care (01) ==
LOC: SDC 11:52 → AC 11:53
PROVIDERS: PCP Internal Medicine; Referring Provider Surgery; Visit Provider Surgery
PROC: (CPT 19301; principal; 2021-04-05 13:45)
DX: N62 Hypertrophy of breast (principal); J43.9 Emphysema, unspecified; G40.909 Epilepsy, unspecified, not intractable, without status epilepticus; I10 Essential (primary) hypertension; E78.5 Hyperlipidemia, unspecified; E03.9 Hypothyroidism, unspecified; R73.03 Prediabetes; M19.90 Unspecified osteoarthritis, unspecified site; K21.9 Gastro-esophageal reflux disease without esophagitis; G47.33 Obstructive sleep apnea (adult) (pediatric); F32.9 Major depressive disorder, single episode, unspecified; F41.9 Anxiety disorder, unspecified; E66.01 Morbid (severe) obesity due to excess calories; Z68.42 Body mass index [BMI] 45.0-49.9, adult; Z99.81 Dependence on supplemental oxygen; Z79.01 Long term (current) use of anticoagulants; Z79.51 Long term (current) use of inhaled steroids; Z79.899 Other long term (current) drug therapy; Z86.711 Personal history of pulmonary embolism; Z86.718 Personal history of other venous thrombosis and embolism; Z87.891 Personal history of nicotine dependence; Z86.73 Personal history of transient ischemic attack (TIA), and cerebral infarction without residual deficits
CPT/HCPCS: 19301; 88305; J7120; J2405

== ENCOUNTER 2021-04-15 19:17 | Inpatient (IN) | payer MEDICAID, SELFPAY ==
[2021-04-15] VITALS (14 sets, daily range): BP systolic 99–149; BP diastolic 78–109; PULSE 67–90; RESP 14–19; TEMP -17.7–36.4; O2SAT 85–100; BMI 42.7
[2021-04-15] MEDS: Rocuronium Bromide 50 MG/5 ML Vial 100 MG IV (19:21)
[2021-04-15] MEDS: Etomidate 20 MG/10 ML Vial IV (19:21)
--- NOTE | 2021-04-15 19:22 | CT_ITS ---
STUDY: CT BRAIN WITHOUT CONTRAST REASON FOR EXAM: Female, 55 years old. A corticated posturing versus seizure. RADIATION DOSAGE (If Supplied By Facility): CTDIvol = ( 44.99 ) mGy, DLP = ( 863.60 ) mGycm TECHNIQUE: Transaxial CT imaging of the brain was performed without administration of intravenous contrast material. Individualized dose optimization techniques were used for this CT. COMPARISON: No relevant priors. FINDINGS: Normal soft tissue structures. Endotracheal tube and enteric tube are seen in the oral cavity. Normal calvarium. Normal size ventricles and extra-axial spaces for the patient''s age. Normal white matter tracts of the cerebral hemispheres. Normal basal ganglia and thalami. Normal brainstem. Normal cerebellum. There is no intracranial hemorrhage. There are no findings of an acute ischemic infarction. Normal visualized paranasal sinuses. CT/Brain/Head without Contrast IMPRESSION: Normal unenhanced CT scan of the brain. There is continued concern, MRI is recommended Electronically Signed: Reggie Forte DO at 20:46 EDT Tel [phone], Service support ,
--- NOTE | 2021-04-15 19:22 | EKG12_ITS ---
Test Reason : DYSRHYTHMIA Blood Pressure : / mmHG Vent. Rate : 075 BPM Atrial Rate : 075 BPM P-R Int : 194 ms QRS Dur : 104 ms QT Int : 458 ms P-R-T Axes : 040 -08 004 degrees QTc Int : 511 ms Normal sinus rhythm Prolonged QT Abnormal ECG When compared with ECG of 06-SEP-2019 16:11, Questionable change in QRS duration Confirmed by TOBY BATISTA, CHARLENE ([id number]), image editor SAUMYA PERAZA ([id number]) on 04/20/2021 11:13:16 AM Referred By: JANIE Confirmed By:CHARLENE LUIS MD
--- NOTE | 2021-04-15 19:22 | CT_ITS ---
STUDY: CTA CHEST REASON FOR EXAM: Female, 55 years old. PEA. Collapse. Recent surgery. RADIATION DOSAGE (If Supplied By Facility): CTDIvol = ( 12.40 ) mGy, DLP = ( 451.89 ) mGycm TECHNIQUE: The examination was performed with the intravenous administration of IV 100mL Isovue-370. Post-processing of the angiographic images was performed, with multiplanar reformation and 3D reconstruction. Individualized dose optimization techniques were used for this CT. COMPARISON: Chest, 04/15/2021. CTA of the chest, 09/06/2019. FINDINGS: There is an endotracheal tube with its tip just above the basilio. An enteric tube along the course the esophagus extending into the proximal stomach. Normal enhancement of the main pulmonary artery and right and left pulmonary arteries. Normal enhancement of the bilateral peripheral pulmonary arteries. There is no demonstrated pulmonary embolism. There is prominence of the main pulmonary arteries and peripheral pulmonary arteries, consistent with congestive heart failure (CHF). Normal thoracic aorta and visualized great vessels. There is no demonstrated aortic dissection. The heart is mildly enlarged. Normal mediastinum. Normal hilar regions. Normal visualized trachea and bronchi. The lungs are under expanded. There is consolidation dependently in both lungs most marked at the left lung base. Normal pleura. Normal chest wall structures. Normal osseous structures. Normal visualized upper abdomen. CT/CTA Chest W/WO Contrast IMPRESSION: 1. No evidence of pulmonary embolus. 2. No aortic dissection or aneurysm. 3. Mild cardiomegaly with prominent pulmonary veins and consolidation in the dependent lungs. Question mild vascular congestion and CHF. Electronically Signed: Reggie Forte DO at 20:54 EDT Tel [phone], Service support ,
--- NOTE | 2021-04-15 19:23 | RAD_ITS ---
STUDY: X-RAY CHEST REASON FOR EXAM: Female, 55 years old. Intubation. TECHNIQUE: Single AP portable view of the chest. COMPARISON: 09/06/2019. FINDINGS: There is an endotracheal tube with its tip in the right mainstem bronchus. There is an NG tube extending below the left hemidiaphragm. There is volume loss in the left lung with mediastinal shift to the left. The right lung is well expanded. There is no demonstrated pleural abnormality. The heart appears mildly enlarged. Normal mediastinum and timi. Normal visualized pulmonary arteries. Normal visualized aortic arch and descending thoracic aorta. Normal visualized thoracic spine. Normal visualized ribs, clavicles, and shoulders. There is no demonstrated abnormality of the visualized soft tissue structures of the upper abdomen. RAD/Chest 1 View (Portable) IMPRESSION: Endotracheal tube in the right mainstem bronchus with volume loss left lung and mediastinal shift. Should be pulled back approximately 3 cm. Endotracheal tube as described. N.B. : The above Results were Read Back by Reggie Forte DO to Harlan Rich MD, and understanding confirmed on 04/15/2021 20:38:52 (ET). Electronically Signed: Reggie Forte DO at 20:40 EDT Tel [phone], Service support ,
--- NOTE | 2021-04-15 19:23 | RAD_ITS ---
INDICATION: NG Insertion EXAMINATION/TECHNIQUE: X-RAY - XR Abdomen 1 View COMPARISON: None FINDINGS: BOWEL GAS PATTERN: Non-obstructive. No bowel or stomach distention. FREE AIR: Not assessed on a single supine view. ORGANOMEGALY: Not seen. CALCIFICATIONS: No abnormal calcifications observed. LOWER CHEST: Opacification of the left lung base could represent a pleural effusion versus edema and/or infection. BONES AND SOFT TISSUES: No acute pathology. OTHER: NG tube is present with tip in the stomach. RAD/Abdomen Single View (Portable) IMPRESSION: NG tube is present with tip in the stomach. Opacification of the left lung base could represent a pleural effusion versus edema and/or infection. Electronically Signed: Marcus Goode MD at 20:11 EDT Tel , Service support ,
--- NOTE | 2021-04-15 19:27 | EDS_ITS ---
HPI History of Present Illness Chief Complaint: CPR Informant: EMS Onset/Context/Timing Onset: - (Unknown) Quality: Found in her house not moving Location: Residents Mechanism/Context: Yes other Current Severity: Severe Maximum Severity: Severe Worsened by: Unknown Relieved by: Unknown Associated Symptoms Associated Symptoms: other (Unknown) Narrative Narrative: Patient is a morbidly obese woman with most medical problems who had recent surgery and is present on antibiotics and pain medicine for left breast infection. She was found in [place]. No other history is available or obtainable. The charge nurse spoke with [id number]. Apparently her collapsed and on Sunday. When he collapsed he fell against her left breast rupturing sutures. The wound became infected. She was placed on antibiotics. According to [id number] she has been vaccinated for Covid. Prior similar symptoms: No Recent Illness/Hospitalization: Yes PFSH PFS Medical History (Updated 04/15/21 @ 21:[address] Harlan Rich MD) Acute and chronic respiratory failure Anemia Anxiety and depression Back pain Bilateral peripheral pulmonary emboli BiPAP (biphasic positive airway pressure) dependence Cardiology follow-up encounter Chest pain Chronic narcotic dependence COPD (chronic obstructive pulmonary disease) COPD exacerbation Dependence on continuous supplemental oxygen Depression Diastolic dysfunction Essential hypertension Former smoker GERD (gastroesophageal reflux disease) HLD (hyperlipidemia) Hx of cardiovascular stress test Hx of echocardiogram Hypothyroidism Morbid obesity MSSA (methicillin susceptible Staphylococcus aureus) pneumonia Obesity On home oxygen therapy STEPHANIE (obstructive sleep apnea) Pulmonary embolism Restrictive lung disease Seizure disorder SOB (shortness of breath) Syncope and collapse TIA (transient ischemic attack) TIA (transient ischemic attack) Wears dentures Wears glasses Home Medications levetiracetam 500 mg PO BID 11/29/15 [History Last Taken 04/05/21] albuterol sulfate 90 mcg/actuation aerosol inhaler 2 puff INHALATION Q4H PRN g 08/01/17 [History Last Taken 03/03/18] omeprazole 40 mg capsule,delayed release 40 mg PO DAILY 08/01/17 [History Last Taken 04/05/21] rivaroxaban 20 mg tablet 20 mg PO DAILY #90 tab 03/26/19 [Rx Last Taken 04/01/21] atorvastatin 80 mg tablet 80 mg PO DAILY 03/02/21 [History Last Taken Unknown] furosemide 20 mg tablet 20 mg PO DAILY 03/02/21 [History Last Taken Unknown] losartan 100 mg tablet 100 mg PO DAILY 03/02/21 [History Last Taken 04/05/21] metoprolol succinate 100 mg tablet,extended release 24 hr 100 mg PO QHS 03/02/21 [History Last Taken Unknown] spironolactone 50 mg tablet 50 mg PO DAILY 03/02/21 [History Last Taken 03/22/21 07:30] venlafaxine 75 mg capsule,extended release 24 hr 75 mg PO DAILY 03/02/21 [ History Last Taken 03/22/21 07:30] clonazepam [Klonopin] 0.5 mg PO BID 03/15/21 [History Last Taken 03/22/21 07:30] magnesium 200 mg PO DAILY 03/15/21 [History Last Taken Unknown] mometasone-formoterol [Dulera] 2 puff INHALATION Q12H PRN 03/15/21 [History Last Taken Unknown] oxycodone 5 mg PO Q8H PRN 5 Days #10 cap 04/05/21 [Rx Last Taken Unknown] Allergy/AdvReac Type Severity Reaction Status Date / Time aspirin Allergy Hives Verified 04/04/21 10:33 ibuprofen Allergy Hives Verified 04/04/21 10:33 ketorolac tromethamine Allergy Angioedema Verified 04/04/21 10:33 [From Toradol] meperidine HCl [From Demerol] Allergy Other Verified 04/04/21 10:33 nitroglycerin Allergy Angioedema Verified 04/04/21 10:33 nut - unspecified Allergy Hives Verified 04/04/21 10:33 Penicillins [PCN] Allergy Hives Verified 04/04/21 10:33 tramadol HCl [From Ultram] Allergy Angioedema Verified 04/04/21 10:33 BENTYL Allergy Itching Uncoded 04/04/21 10:33 Family History Brother Myocardial infarction Father Colon cancer Surgical History (Updated 04/15/21 @ 20:[address] Aleksandra Hurley MD) History of cholecystectomy History of hysterectomy History of left breast biopsy Hx of appendectomy S/P lumpectomy, left breast Social History (Updated 04/15/21 @ 20:[address] Aleksandra Hurley MD) household members: none Smoking Status: Former smoker quit date: 01/21/16 pack-years: 32 second hand exposure: Yes alcohol intake: never substance use type: does not use ROS ROS ED Review of Systems ROS Unobtainable: due to mental condition and due to mental status Constitutional Constitutional ED: Reports fever(s) EXAM Physical Exam Const Vital Signs: 04/15/21 19:17 04/15/21 19:23 04/15/21 19:25 Temperature 0 F L Temperature Source Oral Pulse Rate 86 90 84 Respiratory Rate 18 17 16 Respiratory Depth Blood Pressure 143/95 H 135/78 H Blood Pressure Mean 111 97 Pulse Ox 94 90 91 Oxygen Delivery Method Non-Rebreather Non-Rebreather Ambu-Bag Oxygen Flow Rate (L/min) 15 Fraction of Inspired Oxygen (FIO2) 04/15/21 19:31 04/15/21 19:34 04/15/21 19:37 Temperature 97.6 F L Temperature Source Temporal Pulse Rate 72 79 Respiratory Rate 16 19 H Respiratory Depth Shallow Blood Pressure 141/109 H 141/109 H Blood Pressure Mean 119 119 Pulse Ox 99 85 Oxygen Delivery Method Ambu-Bag Ambu-Bag Oxygen Flow Rate (L/min) 15 15 Fraction of Inspired Oxygen (FIO2) 80 04/15/21 19:52 04/15/21 19:57 Temperature Temperature Source Pulse Rate 79 74 Respiratory Rate 16 16 Respiratory Depth Blood Pressure 99/80 121/96 H Blood Pressure Mean 86 104 Pulse Ox 100 100 Oxygen Delivery Method Ambu-Bag Ambu-Bag Oxygen Flow Rate (L/min) 15 15 Fraction of Inspired Oxygen (FIO2) Positive well nourished, well developed and obese General Appearance ED: well developed Nutritional Appearance: obese HEENT normocephalic and atraumatic; Negative for cyanosis of lips/distal nose Tympanic Membrane ED: Yes TM abnormal Tympanic Membrane: TM abnormal Eyes Eyes Narrative: Pupils are dilated. Question if any reactivity. Neck full ROM, no lymphadenopathy and supple Neck Narrative: Trachea midline. There is abnormal sounds noted with auscultation of the neck. Presume patient has obstructive sleep apnea. Resp Resp Narrative: Patient is breathing on her own. There is adventitial breath sounds noted bilaterally. Cardio regular rate, regular rhythm, S1 normal heart sound, S2 normal heart sound and no murmurs Palpation: normal PMI GI non-tender and non-distended Palpation: soft Back/Spine Back/Spine Narrative: GCS is 3. Extremity Extremity Narrative: Legs are in extension. She moved her left upper extremity. There is no movement in the right upper extremity. Neuro No oriented x3 Neuro Narrative: GCS is 3 Sensorium / Orientation: Negative for alert Skin Rashes: No no rashes and rashes noted Left breast cellulitis MDM MDM MDM Narrative Medical decision making narrative: Status post successful resuscitation of cardiopulmonary rest, [place]. With history of recent surgery 1 needs entertain possibility of pulmonary embolus. Also need to rule out intracranial process. Upon arrival patient was orotracheally debated after administration of 20 mg of etomidate and 100 mg rocuronium. Patient was easily intubated on first attempt using glide scope with a 7.5 Polish endotracheal tube. There is appropriate color change noted on the capnometer. Breath sounds are noted bilaterally. CT of the head was reviewed by me and reveals no acute obvious abnormality. Awaiting radiology read. Lab Data Attestation: I reviewed the patient's lab results. Labs: Laboratory Results - last 24 hr 04/15/21 04/15/21 04/15/21 19:22 19:30 19:30 WBC 16.2 H RBC 3.11 L Hgb 9.5 L Hct 32.4 L MCV 104.2 H MCH 30.5 MCHC 29.3 L RDW Std Deviation 50.1 H RDW Coeff of Immanuel 13.1 Plt Count 394 MPV 10.6 Immature Gran % (Auto) 2.000 H Neut % (Auto) 70.2 H Lymph % (Auto) 19.3 [place] % (Auto) 7.3 Eos % (Auto) 0.8 Baso % (Auto) 0.4 Absolute Neuts (auto) 11.4 H Absolute Lymphs (auto) 3.13 Nucleated RBC % 0 PT 13.6 INR 1.1 APTT 32.3 Sodium Potassium Chloride Carbon Dioxide Anion Gap BUN Creatinine Estim Creat Clear Calc Est GFR (MDRD) Af Amer Est GFR (MDRD) Non-Af BUN/Creatinine Ratio Glucose Lactic Acid Calcium Total Bilirubin AST ALT Alkaline Phosphatase Total Creatine Kinase Troponin I High Sens B-Natriuretic Peptide 206.0 H Total Protein Albumin Globulin Albumin/Globulin Ratio Urine Color Urine Clarity Urine pH Ur Specific [place] Urine Protein Urine Glucose (UA) Urine Ketones Urine Occult Blood Urine Nitrite Urine Bilirubin Urine Urobilinogen Ur Leukocyte Esterase Urine RBC Urine WBC Ur Squamous Epith Cells Urine Bacteria Urine Mucus Urine Opiates Screen Urine Methadone Screen Ur Barbiturates Screen Ur Phencyclidine Scrn Ur Amphetamines Screen U Methamphetamin-MDMA U Benzodiazepines Scrn Urine Cocaine Screen U Cannabinoids Screen Ur Drug Screen Comment 04/15/21 04/15/21 04/15/21 19:30 19:30 19:30 WBC RBC Hgb Hct MCV MCH MCHC RDW Std Deviation RDW Coeff of Immanuel Plt Count MPV Immature Gran % (Auto) Neut % (Auto) Lymph % (Auto) [place] % (Auto) Eos % (Auto) Baso % (Auto) Absolute Neuts (auto) Absolute Lymphs (auto) Nucleated RBC % PT INR APTT Sodium 138 Potassium 4.6 Chloride 110 H Carbon Dioxide 24.0 Anion Gap 4 L BUN 22 H Creatinine 1.48 H Estim Creat Clear Calc 44.89 Est GFR (MDRD) Af Amer 47 L Est GFR (MDRD) Non-Af 39 L BUN/Creatinine Ratio 14.9 Glucose 161 H Lactic Acid 1.7 Calcium 9.1 Total Bilirubin 0.20 AST 33 ALT 36 Alkaline Phosphatase 146 H Total Creatine Kinase 88 Troponin I High Sens 75 H B-Natriuretic Peptide Total Protein 8.2 Albumin 3.5 Globulin 4.7 H Albumin/Globulin Ratio 0.7 L Urine Color Urine Clarity Urine pH Ur Specific [place] Urine Protein Urine Glucose (UA) Urine Ketones Urine Occult Blood Urine Nitrite Urine Bilirubin Urine Urobilinogen Ur Leukocyte Esterase Urine RBC Urine WBC Ur Squamous Epith Cells Urine Bacteria Urine Mucus Urine Opiates Screen Urine Methadone Screen Ur Barbiturates Screen Ur Phencyclidine Scrn Ur Amphetamines Screen U Methamphetamin-MDMA U Benzodiazepines Scrn Urine Cocaine Screen U Cannabinoids Screen Ur Drug Screen Comment 04/15/21 04/15/21 19:40 19:40 WBC RBC Hgb Hct MCV MCH MCHC RDW Std Deviation RDW Coeff of Immanuel Plt Count MPV Immature Gran % (Auto) Neut % (Auto) Lymph % (Auto) [place] % (Auto) Eos % (Auto) Baso % (Auto) Absolute Neuts (auto) Absolute Lymphs (auto) Nucleated RBC % PT INR APTT Sodium Potassium Chloride Carbon Dioxide Anion Gap BUN Creatinine Estim Creat Clear Calc Est GFR (MDRD) Af Amer Est GFR (MDRD) Non-Af BUN/Creatinine Ratio Glucose Lactic Acid Calcium Total Bilirubin AST ALT Alkaline Phosphatase Total Creatine Kinase Troponin I High Sens B-Natriuretic Peptide Total Protein Albumin Globulin Albumin/Globulin Ratio Urine Color Yellow Urine Clarity Sl. Cloudy Urine pH 6.0 Ur Specific [place] 1.015 Urine Protein 500 H Urine Glucose (UA) 50 H Urine Ketones Negative Urine Occult Blood 150 H Urine Nitrite Negative Urine Bilirubin Negative Urine Urobilinogen Normal Ur Leukocyte Esterase Negative Urine RBC 10-25 SEEN Urine WBC 0 SEEN Ur Squamous Epith Cells 0-5 SEEN Urine Bacteria 0 SEEN Urine Mucus 0 SEEN Urine Opiates Screen NEGATIVE Urine Methadone Screen NEGATIVE Ur Barbiturates Screen NEGATIVE Ur Phencyclidine Scrn NEGATIVE Ur Amphetamines Screen NEGATIVE U Methamphetamin-MDMA NEGATIVE U Benzodiazepines Scrn NEGATIVE Urine Cocaine Screen NEGATIVE U Cannabinoids Screen NEGATIVE Ur Drug Screen Comment ABG reveals a metabolic and respiratory acidosis. There is an AA gradient. ABG Data ABG results: ABG 04/15/21 21:01 Specimen Type ART Sample Site L Brach pH 7.19 L* Bicarbonate Actual 20.0 L Total CO2 22 Base Excess -8 L O2 Saturation 94 L O2 % 40 ABG pCO2 52.6 H ABG pO2 86 Олег Test Positive Respiration Rate 14 O2 Delivery Device Adult Vent Vent Mode AC Tidal Volume 450 POC PEEP 5 Crit Call To/Read Back Yes Blood Gas Notified Whom Rich Radiography Chest X-Ray - ED: 1 View (The endotracheal tube is noted in the right main. There is a white out of the left lung field. Respiratory therapy was instructed to pull the endotracheal tube back 2.53 cm.), Read by ED Physician (Single view x-ray of the abdomen was obtained. Orogastric tube needs to be advanced another 5 cm. Nurse was instructed to advance the tube another 5 cm.), Heart, Mediastinum and Bony Structures Diagnostic Testing: Radiology Impression Brain CT 04/15/21 19:22 IMPRESSION: Normal unenhanced CT scan of the brain. There is continued concern, MRI is recommended Electronically Signed: Reggie Forte DO at 20:46 EDT Tel [phone], Service support , Chest CTA 04/15/21 19:22 IMPRESSION: 1. No evidence of pulmonary embolus. 2. No aortic dissection or aneurysm. 3. Mild cardiomegaly with prominent pulmonary veins and consolidation in the dependent lungs. Question mild vascular congestion and CHF. Electronically Signed: Reggie Forte DO at 20:54 EDT Tel [phone], Service support , Chest X-Ray 04/15/21 19:23 IMPRESSION: Endotracheal tube in the right mainstem bronchus with volume loss left lung and mediastinal shift. Should be pulled back approximately 3 cm. Endotracheal tube as described. N.B. : The above Results were Read Back by Reggie Forte DO to Harlan Rich MD, and understanding confirmed on 04/15/2021 20:38:52 (ET). Electronically Signed: Reggie Forte DO at 20:40 EDT Tel [phone], Service support , ADDENDUM: 04/15/212046 IMPRESSION: Endotracheal tube in the right mainstem bronchus with volume loss left lung and mediastinal shift. Should be pulled back approximately 3 cm. Endotracheal tube as described. N.B. : The above Results were Read Back by Reggie Forte DO to Harlan Rich MD, and understanding confirmed on 04/15/2021 20:38:52 (ET). Electronically Signed: Reggie Forte DO at 20:40 EDT Tel [phone], Service support , KUB X-Ray 04/15/21 19:23 IMPRESSION: NG tube is present with tip in the stomach. Opacification of the left lung base could represent a pleural effusion versus edema and/or infection. Electronically Signed: Marcus Goode MD at 20:11 EDT Tel , Service support , CTA reveals bilateral interstitial infiltrates. This is concerning for Covid. There is no obvious large pulmonary embolus. Will speak with hospitalist for admission. Is also may represent aspiration. She was treated clindamycin since she has allergy to penicillin. EKG Initial EKG: Attestation: I personally reviewed and interpreted this EKG as follows: Interpretation: Sinus Rhythm (Sinus rhythm with a ventricular rate of 75. GA interval is 194 ms. QS duration 104 ms. QT interval is 458 with a QTC of 511 ms which is prolonged. No other abnormalities noted.) Procedures Intubations Intubation Method: orotracheal Intubation Verification: Positive color change Intubation Complications: no complications Critical Care Time Critical Care Time: Yes Critical care time (excluding procedures): 30-74 minutes (42 minutes), Including time spent: (History, physical, documentation, review of prior records), Discussing w/Patient &/or Family/Mandolin Repairer, Discussing w/Consultants, Arranging Admission or Transfer and Performing Direct Patient Care at Bedside Discharge Plan Triage Chief Complaint: CPR ED Provider: Harlan Rich Dx/Rx/DC Orders Clinical Impression: Cardiopulmonary arrest with successful resuscitation, Acute respiratory failure with hypoxia and hypercapnia, Congestive heart failure, Acidosis, lactic Prescriptions: No Action omeprazole 40 mg capsule,delayed release(DR/EC) 40 mg PO DAILY RF: 0 albuterol sulfate [ProAir HFA] 90 mcg/actuation HFA aerosol inhaler 2 puff INHALATION Q4H PRN (Reason: shortness of breath or wheezing) RF: 0 losartan 100 mg tablet 100 mg PO DAILY RF: 0 atorvastatin 80 mg tablet 80 mg PO DAILY RF: 0 furosemide 20 mg tablet 20 mg PO DAILY RF: 0 spironolactone 50 mg tablet 50 mg PO DAILY RF: 0 venlafaxine 75 mg capsule,extended release 24hr 75 mg PO DAILY RF: 0 metoprolol succinate 100 mg tablet extended release 24 hr 100 mg PO QHS RF: 0 levetiracetam 500 MG tablet 500 mg PO BID RF: 0 clonazepam [Klonopin] 0.5 mg Tablet,Disintegrating 0.5 mg PO BID RF: 0 magnesium 200 mg Tablet 200 mg PO DAILY RF: 0 Dulera 100-5 mcg/actuation Hfa Aerosol Inhaler 2 puff INHALATION Q12H PRN (Reason: sob) RF: 0 oxycodone 5 mg capsule 5 mg PO Q8H PRN (Reason: pain (scale score 7-10)) 5 Days Qty: 10 RF: 0 rivaroxaban 20 mg tablet 20 mg PO DAILY Qty: 90 RF: 3 Primary Care Provider: Alvarez Montanez Referrals: Alvarez Montanez MD [Primary Care Provider] - [facility]
[2021-04-15] MEDS: Propofol 10MG/Ml 1,000 MG/100 ML Bottle 7.9 MG CONT INF (19:29)
--- NOTE | 2021-04-15 19:44 | ED.RN ---
PER DR LOYD, ET TUBE PULLED BACK BY RESP THERAPY. OG INSERTED FURTHER BY THIS NURSE
[2021-04-15 19:45] LABS: Absolute Lymphocyte Count 3.13 X10^3/uL (0.83-4.51); Absolute Neutrophil Count 11.4 X10^3/uL (2.0-7.7); Basophil# 0.07 X10^3/uL; Basophil% 0.4 % (0-1); Eosinophil# 0.13 X10^3/uL; Eosinophils% 0.8 % (0-5); Hematocrit 32.4 % (37-47); Hemoglobin 9.5 g/dL (12.0-15.0); Lymphocyte # 3.13 X10^3/ul (0.83-4.51); Lymphocyte % 19.3 % (19-41); Mean Corp Hgb Conc 29.3 g/dL (32-36); Mean Corpuscular Hgb 30.5 pg (27.0-32.0); Mean Corpuscular Volume 104.2 fL (81-99); Mean Platelet Vol. 10.6 fl (6.2-12.0); Monocyte# 1.18 X10^3/uL; Monocyte% 7.3 % (0-10); NRBC Flagged by Analyzer 0 % (0-5); Neutrophil % 70.2 % (47-70); Platelet Count 394 K/mm3 (150-450); RBC Distribution Width CV 13.1 % (11.6-14.6); RBC Distribution Width SD 50.1 fl (35.1-43.9); Red Blood Count 3.11 M/mm3 (4.2-5.4); White Blood Count 16.2 K/mm3 (4.4-11.0)
[2021-04-15 19:49] LABS: Bacteria 0 SEEN /hpf (None Seen); Mucous, Urine 0 SEEN /hpf (<or=2+); White Blood Cells 0 SEEN /hpf (0-5)
--- NOTE | 2021-04-15 19:52 | ED.RN ---
IN CT WITH PT
[2021-04-15 19:56] LABS: Color, Urine Yellow (Yellow); Glucose, Dipstick 50 mg/dl (Normal); Ketone-Dipstick Negative (Negative); Leukocyte Esterase-Dipstick Negative /ul (Negative); Nitrite-Dipstick Negative (Negative); Occult Blood-Urine 150 /ul (Negative); Protein-Dipstick 500 mg/dl (Negative); Specific Gravity, Urine 1.015 (1.002-1.030); Urine Bilirubin Dipstick Negative (Negative); Urine Clarity Sl. Cloudy (Clear); Urine Urobilinogen Normal (Normal)
[2021-04-15 19:59] LABS: International Normalized Ratio 1.1; Prothrombin Time (Protime)PT. 13.6 SECONDS (11.7-14.9)
[2021-04-15 20:00] LABS: Partial Thromboplast Time 32.3 Seconds (24.1-36.2)
[2021-04-15 20:04] LABS: ALB/GLOB Ratio 0.7 RATIO (0.9-2.4); AST(SGOT) 33 U/L (15-37); Alanine Aminotransfer ALT/SGPT 36 U/L (13-56); Albumin, Serum 3.5 g/dL (3.2-5.0); Alkaline Phosphatase 146 U/L (45-117); Anion Gap 4 (5-15); BUN 22 mg/dL (7-18); BUN/Creat Ratio 14.9 RATIO (10-20); Calcium,Total 9.1 mg/dL (8.5-10.1); Chloride 110 mmol/L (98-107); Creatinine, Serum 1.48 mg/dL (0.55-1.02); EST Glomerular Filtration Rate 39 mL/min (>60); Est Glom Filt Rate - Afr Amer 47 mL/min (>60); Estimated Creatinine Clearance 44.89 ml/min; Globulin 4.7 g/dL (2.2-4.2); Glucose 161 mg/dL (74-106); Potassium 4.6 mmol/L (3.5-5.1); Protein, Total 8.2 g/dL (6.4-8.2); Sodium Level 138 mmol/L (136-145); Troponin-I HS 75 pg/mL (3.0-54.0)
[2021-04-15 20:08] LABS: CPK Total, Creatine Kinase 88 U/L (26-192)
[2021-04-15 20:10] LABS: Lactic Acid 1.7 mmol/L (0.4-1.9)
[2021-04-15 20:17] LABS: Red Blood Cells-Urine 10-25 SEEN /hpf (0-5); Squamous Epithelial Cells - UA 0-5 SEEN /hpf (5-10)
--- NOTE | 2021-04-15 20:24 | ED.RN ---
SOFT WRIST RESTRAINTS APPLIED
[2021-04-15 20:26] LABS: Amphetamine Urine VISTA NEGATIVE (<1000 ng/mL); Barbiturate Urine VISTA NEGATIVE (< 200 ng/mL); Benzodiazepine Urine VISTA NEGATIVE (< 200 ng/mL); Cocaine Urine VISTA NEGATIVE (< 300 ng/mL); Ecstacy Urine VISTA NEGATIVE (< 500 ng/mL); Methadone Urine VISTA NEGATIVE (< 300 ng/mL); PCP Urine VISTA NEGATIVE (< 25 ng/mL); THC Urine VISTA NEGATIVE (< 50 ng/mL); Vista UDS pH Range 6
--- NOTE | 2021-04-15 20:29 | PCM.HP.STD ---
HPI - General General Date of Admission: 04/15/21 Date of Service: 04/15/21 Chief Complaint: Unresponsive, PEA, ROSC HPI Narrative The patient is a 55 y/o F w/ PMHx: CKD stage III unclear subtype, Morbid Obesity, STEPHANIE, Chronic pain on chronic narcotic therapy, Hx DVT/PEs, Pre-Diabetes mellitus type II, Depression and Anxiety, GERD, Asthma/Chronic COPD w/ chronic hypoxic respiratory failure (4L NC noted in chart history), HTN, HLD, Tobacco use, Hx CVA w/ R sided weakness, Seizure disorder, Recent L breast lumpectomy with papillary carcinoma in situ per Dr. Lui 04/05/21 [address] the [facility] [place] ED on 04/15/21 with history of being found by the neighbor on the floor, unclear downtime, noted upon initial presentation per EMS to be in PEA with initiation of CPR x2 rounds as well as 1 dose of epinephrine in addition to Narcan which seemed to not have marked effect with ROSC within transition to the ED and immediate intubation. Per report by [id number] patient's recently collapsed and on Sunday of week of presentation and when he collapsed he fell against her left breast fracturing the sutures with apparent infection recently placed on antibiotic therapies. Family does report that she has been vaccinated against Covid. Work-up in the ED included T 97.6, heart rate 79, BP 141/109, respiratory rate 19, and really 85% with Ambu bag eventually intubated, improved to 100%, CBC with WBC 16.2, hemoglobin 9.5, platelet 394 with left shift, unremarkable coags, CMP with chloride 110, BUN/creatinine 22/1.48, glucose 161, lactic acid 1.7, alk phos 146, high-sensitivity troponin 75, BNP 206, urinalysis not marked appearing, UDS negative including opiate, KUB with NG tube present in the tip of the stomach with noted opacification left lung base possibly effusion versus edema and/or infection, chest x-ray with ET tube in the right mainstem bronchus with volume loss left lung and mediastinal shift with recommendation for ET tube to be pulled back 3 cm, CTPA with no evidence of pulmonary embolus, no evidence of aortic dissection or aneurysm, mild chemically with prominent pulmonary veins and consolidation dependent lungs, questionable mild vascular congestion and CHF, CT brain with no acute intracranial findings, EKG NSR with prolonged QT, BNP 206. In the ED patient ministered rocuronium, etomidate, propofol and clindamycin. [facility] Medical History (Updated 04/16/21 @ 04:[address] Aleksandra Hurley MD) Acute and chronic respiratory failure Anemia Anxiety and depression Back pain Bilateral peripheral pulmonary emboli BiPAP (biphasic positive airway pressure) dependence Cardiology follow-up encounter Chest pain Chronic narcotic dependence COPD (chronic obstructive pulmonary disease) COPD exacerbation Dependence on continuous supplemental oxygen Depression Diastolic dysfunction Essential hypertension Former smoker GERD (gastroesophageal reflux disease) HLD (hyperlipidemia) Hx of cardiovascular stress test Hx of echocardiogram Hypothyroidism Morbid obesity MSSA (methicillin susceptible Staphylococcus aureus) pneumonia Obesity On home oxygen therapy STEPHANIE (obstructive sleep apnea) Pulmonary embolism Restrictive lung disease Seizure disorder SOB (shortness of breath) Syncope and collapse TIA (transient ischemic attack) TIA (transient ischemic attack) Wears dentures Wears glasses Home Medications levetiracetam 500 mg PO BID 11/29/15 [History Last Taken 04/05/21] albuterol sulfate 90 mcg/actuation aerosol inhaler 2 puff INHALATION Q4H PRN g 08/01/17 [History Last Taken 03/03/18] omeprazole 40 mg capsule,delayed release 40 mg PO DAILY 08/01/17 [History Last Taken 04/05/21] rivaroxaban 20 mg tablet 20 mg PO DAILY #90 tab 03/26/19 [Rx Last Taken 04/01/21] atorvastatin 80 mg tablet 80 mg PO DAILY 03/02/21 [History Last Taken Unknown] furosemide 20 mg tablet 20 mg PO DAILY 03/02/21 [History Last Taken Unknown] losartan 100 mg tablet 100 mg PO DAILY 03/02/21 [History Last Taken 04/05/21] metoprolol succinate 100 mg tablet,extended release 24 hr 100 mg PO QHS 03/02/21 [History Last Taken Unknown] spironolactone 50 mg tablet 50 mg PO DAILY 03/02/21 [History Last Taken 03/22/21 07:30] venlafaxine 75 mg capsule,extended release 24 hr 75 mg PO DAILY 03/02/21 [History Last Taken 03/22/21 07:30] clonazepam [Klonopin] 0.5 mg PO BID 03/15/21 [History Last Taken 03/22/21 07:30] magnesium 200 mg PO DAILY 03/15/21 [History Last Taken Unknown] mometasone-formoterol [Dulera] 2 puff INHALATION Q12H PRN 03/15/21 [History Last Taken Unknown] oxycodone 5 mg PO Q8H PRN 5 Days #10 cap 04/05/21 [Rx Last Taken Unknown] Allergy/AdvReac Type Severity Reaction Status Date / Time aspirin Allergy Hives Verified 04/04/21 10:33 ibuprofen Allergy Hives Verified 04/04/21 10:33 ketorolac tromethamine Allergy Angioedema Verified 04/04/21 10:33 [From Toradol] meperidine HCl [From Demerol] Allergy Other Verified 04/04/21 10:33 nitroglycerin Allergy Angioedema Verified 04/04/21 10:33 nut - unspecified Allergy Hives Verified 04/04/21 10:33 Penicillins [PCN] Allergy Hives Verified 04/04/21 10:33 tramadol HCl [From Ultram] Allergy Angioedema Verified 04/04/21 10:33 BENTYL Allergy Itching Uncoded 04/04/21 10:33 Family History Brother Myocardial infarction Father Colon cancer Surgical History (Updated 04/15/21 @ 20:[address] Aleksandra Hurley MD) History of cholecystectomy History of hysterectomy History of left breast biopsy Hx of appendectomy S/P lumpectomy, left breast Social History (Updated 04/15/21 @ 20:[address] Aleksandra Hurley MD) household members: none Smoking Status: Former smoker quit date: 01/21/16 pack-years: 32 second hand exposure: Yes alcohol intake: never substance use type: does not use ROS Review of Systems ROS Unobtainable: due to endotracheal tube and due to mental condition Vital Signs Vital Signs Vital Signs: 04/15/21 19:17 04/15/21 19:23 04/15/21 19:25 Temperature 0 F L Temperature Source Oral Pulse Rate 86 90 84 Respiratory Rate 18 17 16 Respiratory Depth Blood Pressure 143/95 H 135/78 H Blood Pressure Mean 111 97 Pulse Ox 94 90 91 Oxygen Delivery Method Non-Rebreather Non-Rebreather Ambu-Bag Oxygen Flow Rate (L/min) 15 Fraction of Inspired Oxygen (FIO2) 04/15/21 19:31 04/15/21 19:34 04/15/21 19:37 Temperature 97.6 F L Temperature Source Temporal Pulse Rate 72 79 Respiratory Rate 16 19 H Respiratory Depth Shallow Blood Pressure 141/109 H 141/109 H Blood Pressure Mean 119 119 Pulse Ox 99 85 Oxygen Delivery Method Ambu-Bag Ambu-Bag Oxygen Flow Rate (L/min) 15 15 Fraction of Inspired Oxygen (FIO2) 80 04/15/21 19:52 04/15/21 19:57 Temperature Temperature Source Pulse Rate 79 74 Respiratory Rate 16 16 Respiratory Depth Blood Pressure 99/80 121/96 H Blood Pressure Mean 86 104 Pulse Ox 100 100 Oxygen Delivery Method Ambu-Bag Ambu-Bag Oxygen Flow Rate (L/min) 15 15 Fraction of Inspired Oxygen (FIO2) Weight Weight: 289 lb 14.526 oz Body Mass Index (BMI) 42.7 Physical Exam Narrative Physical examination: General: Patient intubated, sedated, not alert, not responsive, no pupillary responses no gag, laying in the ED bed. Skin: Normal color, normal turgor, no icterus, no cyanosis. HEENT: AT/NC, EOM unable to be assessed given acute presentation as noted, pupils moderately dilated and unresponsive, dry MM, no carotid bruits, no marked JVD noted; however, thickened neck makes examination difficult. Lungs: Intubated, sedated, symmetric diffuse diminished breath sounds, no rales, ronchi or wheezing. Heart: Regular rate and rhythm; no gallop, rub audible. Abdomen: Soft, morbidly obese, no obvious evidence of TTP, difficult to discern distention given morbidly obese habitus, distant hypoactive bowel sounds, unable to discern any HSM especially given morbidly obese habitus. Extremities: No cyanosis, clubbing, or edema. Neurological: Patient intubated, sedated, not alert, not responsive, no pupillary responses no gag, laying in the ED bed; cognitive function not baseline intact; pupils unreactive and mildly dilated, cranial nerves unable to be assessed, not responsive, strength accordingly severely global decreased. Psychiatric: Affect appears flat, intubated, sedated, no acute evidence of depressive or anxiety feelings. Results Lab / Micro Data Result Diagrams: 04/15/21 19:30 04/15/21 19:30 Labs: Laboratory Results - last 24 hr 04/15/21 19:22: B-Natriuretic Peptide 206.0 H 04/15/21 19:30: WBC 16.2 H, RBC 3.11 L, Hgb 9.5 L, Hct 32.4 L, MCV 104.2 H, MCH 30.5, MCHC 29.3 L, RDW Std Deviation 50.1 H, RDW Coeff of Immanuel 13.1, Plt Count 394, MPV 10.6, Immature Gran % (Auto) 2.000 H, Neut % (Auto) 70.2 H, Lymph % (Auto) 19.3, [place] % (Auto) 7.3, Eos % (Auto) 0.8, Baso % (Auto) 0.4, Absolute Neuts (auto) 11.4 H, Absolute Lymphs (auto) 3.13, Nucleated RBC % 0 04/15/21 19:30: PT 13.6, INR 1.1, APTT 32.3 04/15/21 19:30: Sodium 138, Potassium 4.6, Chloride 110 H, Carbon Dioxide 24.0, Anion Gap 4 L, BUN 22 H, Creatinine 1.48 H, Estim Creat Clear Calc 44.89, Est GFR (MDRD) Af Amer 47 L, Est GFR (MDRD) Non-Af 39 L, BUN/Creatinine Ratio 14.9, Glucose 161 H, Calcium 9.1, Total Bilirubin 0.20, AST 33, ALT 36, Alkaline Phosphatase 146 H, Troponin I High Sens 75 H, Total Protein 8.2, Albumin 3.5, Globulin 4.7 H, Albumin/Globulin Ratio 0.7 L 04/15/21 19:30: Lactic Acid 1.7 04/15/21 19:30: Total Creatine Kinase 88 04/15/21 19:40: Urine Color Yellow, Urine Clarity Sl. Cloudy, Urine pH 6.0, Ur Specific Alexander 1.015, Urine Protein 500 H, Urine Glucose (UA) 50 H, Urine Ketones Negative, Urine Occult Blood 150 H, Urine Nitrite Negative, Urine Bilirubin Negative, Urine Urobilinogen Normal, Ur Leukocyte Esterase Negative, Urine RBC 10-25 SEEN, Urine WBC 0 SEEN, Ur Squamous Epith Cells 0-5 SEEN, Urine Bacteria 0 SEEN, Urine Mucus 0 SEEN 04/15/21 19:40: Urine Opiates Screen NEGATIVE, Urine Methadone Screen NEGATIVE, Ur Barbiturates Screen NEGATIVE, Ur Phencyclidine Scrn NEGATIVE, Ur Amphetamines Screen NEGATIVE, U Methamphetamin-MDMA NEGATIVE, U Benzodiazepines Scrn NEGATIVE, Urine Cocaine Screen NEGATIVE, U Cannabinoids Screen NEGATIVE, Ur Drug Screen Comment Radiology Impression KUB X-Ray 04/15/21 19:23 IMPRESSION: NG tube is present with tip in the stomach. Opacification of the left lung base could represent a pleural effusion versus edema and/or infection. Electronically Signed: Marcus Goode MD at 20:11 EDT Tel , Service support , Assessment & Plan Assessment/Plan (1) Cardiopulmonary arrest with successful resuscitation: (2) Acute respiratory failure with hypoxia and hypercapnia: (3) Congestive heart failure: QUALIFIERS: Heart failure type: unspecified Heart failure chronicity: acute Qualified Code(s): I50.9 - Heart failure, unspecified (4) Acidosis, lactic: PLAN: The patient is a 55 y/o F w/ PMHx: CKD stage III unclear subtype, Morbid Obesity, STEPHANIE, Chronic pain on chronic narcotic therapy, Hx DVT/PEs, Pre-Diabetes mellitus type II, Depression and Anxiety, GERD, Asthma/Chronic COPD w/ chronic hypoxic respiratory failure, HTN, HLD, Tobacco use, Hx CVA w/ R sided weakness, Seizure disorder, Recent L breast lumpectomy with papillary carcinoma in situ per Dr. Lui 04/05/[address] [facility] [place] ED on 04/15/21 with history of being found by the neighbor on the floor, unclear downtime, noted upon initial presentation per EMS to be in PEA with initiation of CPR x2 rounds as well as 1 dose of epinephrine in addition to Narcan which seemed to not have marked effect with ROSC within transition to the ED and immediate intubation. 1. Cardiopulmonary arrest with ROSC, Unclear Etiology with Acute Hypoxic and Hypercarbic Respiratory Failure and Acute CHF Exacerbation, Unclear type w/ lactic acidosis suspected associated to hypoxemia: Will admit to the ICU, maintain intubated and sedated status, consult co founder and director of grants, continue serial cardiac enzymes, EKGs, obtain magnesium level, continue medical management, echocardiogram requested, given ASA allergy will start plavix, cycle cardiac enzymes, obtain mag, phos, continue intubated and sedated status with propofol, fentanyl, obtain ABG 1 hour following intubation, low threshold to add coverage for aspiration, will continue IV twice daily Lasix, pending magnesium, TSH level, monitor I's and O's. 2. Recent diagnosis breast cancer, papillary carcinoma with postoperative injury and infection: Patient with left breast papillary carcinoma, status post recent left breast lumpectomy by Dr. Lui on 04/05/2021, incision well appearing, Steri-Strips in place, some firmness to the region, ultrasound requested, updated Dr. Lui about her current status given recent intervention, will continue doxycycline. 3. Chronic COPD with chronic hypoxic respiratory failure: Currently intubated and sedated, will maintain on ATC duonebs, PRN albuterol, HOB, IS parameters. 4. Chronic macrocytic anemia: Admission hemoglobin 9.5, prior baseline noted -, will continue to trend, repeat CBC in AM. 5. Chronic Kidney Disease Stage III: Admission BUN/Cr 22/1.48, baseline renal function primarily 0.1-0.4 noted prior, repeat BMP in AM. 6. Chronic pain syndrome: Patient on chronic narcotic therapy, tper report was administered Narcan by EMS without any effect. 7. Pre-Diabetes mellitus type II: Not on regimen, hemoglobin A1c requested, continue every 6 hours accu checks w/ ISS, nutrition consulted. 8. Hypertension: Continue home regimen including Lasix, losartan, metoprolol, spironolactone with hold parameters, PRN hydralazine. 9. Anxiety and depression: We will continue patient home venlafaxine, Klonopin regimen. 10. Seizure disorder: We will continue patient home Keppra regimen. 11. Hyperlipidemia: We will continue patient on statin therapy. 12. Morbid Obesity: Weight loss and lifestyle changes will be encouraged if patient becomes responsive. 13. History DVT/PEs, recurrent: We will continue patient home Xarelto regimen but she had recently been off and transitioned to lovenox for OR. 14. STEPHANIE: Currently intubated and sedated as noted above. 15. GERD: We will maintain on PPI. 16. DVT prophylaxis: SCDs, continue patient on Xarelto regimen. Critical Care Time: 65 minutes, time from 20:20-21:25, were spent addressing patients acute presentation, review of all data in collaboration with care team in addition to discussion with family. Charges/Coding Procedures Hospitalists Procedures: [id number] Critial Care 1st Hr
--- NOTE | 2021-04-15 20:48 | ED.RN ---
THIS NURSE SPOKE WITH THE PT [id number] ON THE PHONE. PER THE SISTER IN LAW, PT HAD BREAST SURGERY LAST WEEK ON SUNDAY. THE FOLLOWING DAY, HER . WHEN HE COLLAPSED HE ACCIDENTLY POPPED SOME OF THE PT SUTURES. PT DID RECEIVE HER COVID VACCINES. HAS NOT BEEN C/O ANY ILLNESS OR SOB. WAS STAYING WITH HER BROTHER AND SISTER IN LAW UNTIL 2 DAYS AGO. THE [id number] TEXT HER LAST NIGHT AND THIS AM REQUESTING SOME MILK AND OTHER GROCERIES. WHEN FAMILY WENT TO DROP ITEMS OFF, THE DOG WAS BARKING WHICH IS UNUSUAL. THEY LOOKED THROUGH THE WINDOW AN SAW HER LAYING ON THE FLOOR IN THE KITCHEN. THEY CALLED 03-23- AND WENT TO THE [facility] TO TRY TO GET A VERDUZCO. WHEN EMS GOT THERE, ONE OF THEM CRAWLED THROUGH THE WINDOW AND UNLOCKED THE DOOR
[2021-04-15 21:06] LABS: Allen Test Positive; Base Excess -8 mmol/L (-2 to +2); Blood Gas Specimen Type ART; FI02 40; Mode AC; O2 Delivery Device Adult Vent; PEEP 5; PO2 86 mmHG (75-100); RR 14; SITE L Brach; SO2 94 % (95-99); Total Carbon Dioxide 22 mmol/L; Vt 450; pCO2 52.6 mmHg (35-45); pH 7.19 (7.35-7.45)
[2021-04-15 21:58] LABS: Probe Check PASS; Specimen Processing Control PASS
--- NOTE | 2021-04-15 22:34 | ECHOCS_ITS ---
Reason For Study: Arrhythmia Procedure This was a 2D Doppler, Color Flow transthoracic echocardiogram. The study was technically difficult. Contrast injection was performed. Exam performed portable in ICU/CCU. Left Ventricle Based upon the 2D echocardiographic and contrast enhanced images obtained there appears to be grossly normal left ventricular size, wall motion, and systolic function. The estimated ejection fraction is 55 %. Diastolic function is indeterminate. Right Ventricle The right ventricle is not well visualized, however, based upon the 2D echocardiographic and contrast enhanced images obtained there appears to be right ventricular dilatation and systolic dysfunction. Atria Normal left atrium. The right atrium is not well visualized. No doppler evidence for ASD. Mitral Valve There is no mitral annular calcification. Normal mitral valve. Trivial mitral valve insufficiency. Tricuspid Valve Normal tricuspid valve. Trivial tricuspid valve insufficiency. Unable to estimate RV systolic pressure/pulmonary artery pressure due to technically difficult study. Aortic Valve The aortic valve is not well visualized. Pulmonic Valve The pulmonic valve is not well visualized. Great Vessels Mildly dilated aortic root. Pericardium/Pleural No pericardial effusion. Medication Diluted definity 2ml given slow IV push to enhance endocardial definition. MMode/2D Measurements & Calculations LVIDd: 4.9 cm IVSd: 1.3 cm Ao root diam: 4.3 cm LVIDs: 3.0 cm LVPWd: 1.1 cm RVDd: 3.7 cm FS: 38.1 % LA dimension(2D): 3.2 cm Doppler Measurements & Calculations MV E max rick: 48.2 cm/sec Lat Peak E' Rick: 8.7 cm/sec Med Peak E' Rick: 5.2 cm/sec MV A max rick: 42.2 cm/sec E/E' lat: 5.5 E/E' med: 9.3 MV E/A: 1.1 Ao V2 max: 101.0 cm/sec LV V1 max: 71.8 cm/sec PA V2 max: 91.4 cm/sec Ao max P.1 mmHg LV V1 max P.1 mmHg ECHO/Echo Complete W/ Contrast Interpretation Summary The study was technically difficult. Contrast injection was performed. Based upon the 2D echocardiographic and contrast enhanced images obtained there appears to be grossly normal left ventricular size, wall motion, and systolic function. The estimated ejection fraction is 55 %. The right ventricle is not well visualized, however, based upon the 2D echocard iographic and contrast enhanced images obtained there appears to be right ventricular dilatat ion and systolic dysfunction. Trivial mitral valve insufficiency. Trivial tricuspid valve insufficiency. Mildly dilated aortic root. Unable to estimate RV systolic pressure/pulmonary artery pressure due to techni tr difficult study. Diastolic function is indeterminate. Ordering Physician: Aleksandra Hurley Referring Physician: Alvarez Montanez M.D. Performed By: Salma Flores RDCS
[2021-04-15 23:05] LABS: Magnesium 2.1 mg/dL (1.6-2.6); Phosphorus 5.3 mg/dL (2.5-4.9)
[2021-04-16] VITALS (34 sets, daily range): BP systolic 90–136; BP diastolic 58–97; PULSE 57–98; RESP 14–22; TEMP 36–36.1; O2SAT 87–100
[2021-04-16] MEDS: clonazePAM 0.5 MG Tablet PO (00:26)
[2021-04-16] MEDS: Chlorhexidine 15 ML PO ×3 (00:26→20:19)
[2021-04-16 01:10] LABS: Bedside Glucose 137 mg/dL (70-110)
--- NOTE | 2021-04-16 05:20 | RAD_ITS ---
STUDY: X-RAY CHEST REASON FOR EXAM: Female, 55 years old. Dyspnea, cough TECHNIQUE: Single AP portable view of the chest. COMPARISON: 04/15/2021 FINDINGS: Interval retraction of endotracheal tube with the tip approximately 3 cm above the basilio. Nasogastric tube which is unchanged. Decrease in alveolar opacity in the lower left lung consistent with improved left lower lobe atelectasis. There is no demonstrated pleural abnormality. There is moderate cardiac enlargement. Normal mediastinum and timi. Normal visualized pulmonary arteries. Normal visualized aortic arch and descending thoracic aorta. Normal visualized thoracic spine. Normal visualized ribs, clavicles, and shoulders. There is no demonstrated abnormality of the visualized soft tissue structures of the upper abdomen. RAD/Chest 1 View (Portable) IMPRESSION: 1. Interval retraction of the endotracheal tube with the tip approximately 3 cm above the basilio. 2. Nasogastric tube which is unchanged. 3. Improved left lower lobe atelectasis. Electronically Signed: Javier Adams MD at 7:27 EDT Tel , Service support ,
--- NOTE | 2021-04-16 05:55 | US_ITS ---
STUDY: ULTRASOUND BREAST - LEFT REASON FOR EXAM: Female, 55 years old. The patient is status post lumpectomy with diagnosis of breast cancer. Region of incision with known infection has become red, hard and swollen. Evaluate for seroma. TECHNIQUE: Axial and longitudinal images of the LEFT breast were performed with a high resolution ultrasound transducer. Patient on ventilator and images were difficult to obtain due to lack of adequate positioning. # OF IMAGES: 35 COMPARISON: None. FINDINGS: LEFT Breast: Focus was given to the area of the incision/lumpectomy. Superficial subcutaneous and parenchymal cavity with complex fluid and some solid components measuring 2.4 cm x 3.1 cm x 4.7 cm. Slight increased blood flow peripherally. US/Breast Limited Unilateral IMPRESSION: Findings compatible with seroma. Seroma should be amenable to percutaneous ultrasound aspiration. ASSESSMENT CATEGORY: Seroma as described. Electronically Signed: Addison Hubbard MD at 14:15 EDT , Service support ,
[2021-04-16] MEDS: Propofol 10MG/Ml 1,000 MG/100 ML Bottle 7.9 MG CONT INF (06:10)
[2021-04-16 06:19] LABS: Absolute Lymphocyte Count 2.02 X10^3/uL (0.83-4.51); Basophil# 0.03 X10^3/uL; Basophil% 0.3 % (0-1); Eosinophil# 0.05 X10^3/uL; Eosinophils% 0.6 % (0-5); Hematocrit 31.5 % (37-47); Hemoglobin 9.1 g/dL (12.0-15.0); Lymphocyte # 2.02 X10^3/ul (0.83-4.51); Lymphocyte % 22.9 % (19-41); Mean Corp Hgb Conc 28.9 g/dL (32-36); Mean Corpuscular Hgb 30.1 pg (27.0-32.0); Mean Corpuscular Volume 104.3 fL (81-99); Mean Platelet Vol. 10.4 fl (6.2-12.0); Monocyte# 0.67 X10^3/uL; Monocyte% 7.6 % (0-10); NRBC Flagged by Analyzer 0 % (0-5); Neutrophil # 6.03 X10^3/uL (2.7-7.7); Neutrophil % 68.1 % (47-70); Platelet Count 294 K/mm3 (150-450); RBC Distribution Width CV 13.2 % (11.6-14.6); RBC Distribution Width SD 49.7 fl (35.1-43.9); Red Blood Count 3.02 M/mm3 (4.2-5.4); White Blood Count 8.8 K/mm3 (4.4-11.0)
[2021-04-16 06:38] LABS: ALB/GLOB Ratio 0.7 RATIO (0.9-2.4); AST(SGOT) 95 U/L (15-37); Alanine Aminotransfer ALT/SGPT 79 U/L (13-56); Alkaline Phosphatase 176 U/L (45-117); Anion Gap 5 (5-15); BUN 17 mg/dL (7-18); BUN/Creat Ratio 19.6 RATIO (10-20); Calcium,Total 8.4 mg/dL (8.5-10.1); Chloride 111 mmol/L (98-107); Creatinine, Serum 0.87 mg/dL (0.55-1.02); EST Glomerular Filtration Rate 72 mL/min (>60); Est Glom Filt Rate - Afr Amer 87 mL/min (>60); Estimated Creatinine Clearance 76.36 ml/min; Globulin 4.2 g/dL (2.2-4.2); Glucose 91 mg/dL (74-106); Protein, Total 7.2 g/dL (6.4-8.2); Sodium Level 138 mmol/L (136-145)
[2021-04-16 06:45] LABS: Allen Test Positive; Base Excess -7 mmol/L (-2 to +2); Bicarbonate 20.9 mmol/L (22-26); Blood Gas Specimen Type ART; FI02 30; Mode AC; O2 Delivery Device Adult Vent; PEEP 5; PO2 64 mmHG (75-100); RR 14; SITE L Radial; SO2 87 % (95-99); Total Carbon Dioxide 23 mmol/L; Vt 400; pCO2 50.7 mmHg (35-45); pH 7.22 (7.35-7.45)
[2021-04-16] MEDS: Ipratropium/Albuterol Sulfate 3 ML AMPUL.NEB INHALATION ×3 (06:52→18:50)
[2021-04-16 07:02] LABS: Thyroid Stim Hormone (TSH) 0.68 uIU/mL (0.358-3.74)
--- NOTE | 2021-04-16 07:23 | HP.PCM.HOS_ITS ---
HPI - General General Date of Admission: 04/15/21 Chief Complaint: Unresponsive, PEA, ROSC HPI Narrative LUIS A CUMMINGS, is a 55 F who presents [facility] Medical History (Updated 04/16/21 @ 04:[address] Aleksandra Hurley MD) Acute and chronic respiratory failure Anemia Anxiety and depression Back pain Bilateral peripheral pulmonary emboli BiPAP (biphasic positive airway pressure) dependence Cardiology follow-up encounter Chest pain Chronic narcotic dependence COPD (chronic obstructive pulmonary disease) COPD exacerbation Dependence on continuous supplemental oxygen Depression Diastolic dysfunction Essential hypertension Former smoker GERD (gastroesophageal reflux disease) HLD (hyperlipidemia) Hx of cardiovascular stress test Hx of echocardiogram Hypothyroidism Morbid obesity MSSA (methicillin susceptible Staphylococcus aureus) pneumonia Obesity On home oxygen therapy STEPHANIE (obstructive sleep apnea) Pulmonary embolism Restrictive lung disease Seizure disorder SOB (shortness of breath) Syncope and collapse TIA (transient ischemic attack) TIA (transient ischemic attack) Wears dentures Wears glasses Home Medications levetiracetam 500 mg PO BID 11/29/15 [History Last Taken 04/05/21] albuterol sulfate 90 mcg/actuation aerosol inhaler 2 puff INHALATION Q4H PRN g 08/01/17 [History Last Taken 03/03/18] omeprazole 40 mg capsule,delayed release 40 mg PO DAILY 08/01/17 [History Last Taken 04/05/21] rivaroxaban 20 mg tablet 20 mg PO DAILY #90 tab 03/26/19 [Rx Last Taken 04/01/21] atorvastatin 80 mg tablet 80 mg PO DAILY 03/02/21 [History Last Taken Unknown] furosemide 20 mg tablet 20 mg PO DAILY 03/02/21 [History Last Taken Unknown] losartan 100 mg tablet 100 mg PO DAILY 03/02/21 [History Last Taken 04/05/21] metoprolol succinate 100 mg tablet,extended release 24 hr 100 mg PO QHS 03/02/21 [History Last Taken Unknown] spironolactone 50 mg tablet 50 mg PO DAILY 03/02/21 [History Last Taken 03/22/21 07:30] venlafaxine 75 mg capsule,extended release 24 hr 75 mg PO DAILY 03/02/21 [History Last Taken 03/22/21 07:30] clonazepam [Klonopin] 0.5 mg PO BID 03/15/21 [History Last Taken 03/22/21 07:30] magnesium 200 mg PO DAILY 03/15/21 [History Last Taken Unknown] mometasone-formoterol [Dulera] 2 puff INHALATION Q12H PRN 03/15/21 [History Last Taken Unknown] oxycodone 5 mg PO Q8H PRN 5 Days #10 cap 04/05/21 [Rx Last Taken Unknown] Allergy/AdvReac Type Severity Reaction Status Date / Time aspirin Allergy Hives Verified 04/04/21 10:33 ibuprofen Allergy Hives Verified 04/04/21 10:33 ketorolac tromethamine Allergy Angioedema Verified 04/04/21 10:33 [From Toradol] meperidine HCl [From Demerol] Allergy Other Verified 04/04/21 10:33 nitroglycerin Allergy Angioedema Verified 04/04/21 10:33 nut - unspecified Allergy Hives Verified 04/04/21 10:33 Penicillins [PCN] Allergy Hives Verified 04/04/21 10:33 tramadol HCl [From Ultram] Allergy Angioedema Verified 04/04/21 10:33 BENTYL Allergy Itching Uncoded 04/04/21 10:33 Family History Brother Myocardial infarction Father Colon cancer Surgical History (Updated 04/15/21 @ 20:[address] Aleksandra Hurley MD) History of cholecystectomy History of hysterectomy History of left breast biopsy Hx of appendectomy S/P lumpectomy, left breast Social History (Updated 04/15/21 @ 20:[address] Aleksandra Hurley MD) household members: none Smoking Status: Former smoker quit date: 01/21/16 pack-years: 32 second hand exposure: Yes alcohol intake: never substance use type: does not use Vital Signs Vital Signs Vital Signs: 04/15/21 19:17 04/15/21 19:23 04/15/21 19:25 Temperature 0 F L Temperature Source Oral Pulse Rate 86 90 84 Respiratory Rate 18 17 16 Respiratory Effort Respiratory Depth Respiratory Pattern Blood Pressure 143/95 H 135/78 H Blood Pressure [BP] Blood Pressure Mean 111 97 Blood Pressure Mean [BP] Blood Pressure Source Blood Pressure Source [BP] Blood Pressure Location Pulse Ox 94 90 91 Oxygen Delivery Method Non-Rebreather Non-Rebreather Ambu-Bag Oxygen Flow Rate (L/min) 15 Fraction of Inspired Oxygen (FIO2) 04/15/21 19:31 04/15/21 19:34 04/15/21 19:37 Temperature 97.6 F L Temperature Source Temporal Pulse Rate 72 79 Respiratory Rate 16 19 H Respiratory Effort Respiratory Depth Shallow Respiratory Pattern Blood Pressure 141/109 H 141/109 H Blood Pressure [BP] Blood Pressure Mean 119 119 Blood Pressure Mean [BP] Blood Pressure Source Blood Pressure Source [BP] Blood Pressure Location Pulse Ox 99 85 Oxygen Delivery Method Ambu-Bag Ambu-Bag Oxygen Flow Rate (L/min) 15 15 Fraction of Inspired Oxygen (FIO2) 80 04/15/21 19:52 04/15/21 19:57 04/15/21 20:13 Temperature Temperature Source Pulse Rate 79 74 76 Respiratory Rate 16 16 14 Respiratory Effort Respiratory Depth Respiratory Pattern Normal Blood Pressure 99/80 121/96 H Blood Pressure [BP] Blood Pressure Mean 86 104 Blood Pressure Mean [BP] Blood Pressure Source Blood Pressure Source [BP] Blood Pressure Location Pulse Ox 100 100 100 Oxygen Delivery Method Ambu-Bag Ambu-Bag Oxygen Flow Rate (L/min) 15 15 Fraction of Inspired Oxygen (FIO2) 100 04/15/21 20:40 04/15/21 21:34 04/15/21 21:35 Temperature 95.9 F L 95.9 F L Temperature Source Temporal Temporal Pulse Rate 75 75 Respiratory Rate 14 14 Respiratory Effort Respiratory Depth Respiratory Pattern Blood Pressure 149/105 H 149/105 H Blood Pressure [BP] Blood Pressure Mean 119 119 Blood Pressure Mean [BP] Blood Pressure Source Blood Pressure Source [BP] Blood Pressure Location Pulse Ox 97 97 Oxygen Delivery Method Mechanical Ventilator Mechanical Ventilator Oxygen Flow Rate (L/min) 15 Fraction of Inspired Oxygen (FIO2) 40 80 04/15/21 22:04 04/15/21 22:30 04/15/21 22:50 Temperature 96 F L Temperature Source Temporal Pulse Rate 73 77 71 Respiratory Rate 14 14 17 Respiratory Effort Respiratory Depth Respiratory Pattern Normal Blood Pressure 147/91 H 146/107 H Blood Pressure [BP] 146/107 H Blood Pressure Mean 109 120 Blood Pressure Mean [BP] 120 Blood Pressure Source Monitor Blood Pressure Source [BP] Monitor Blood Pressure Location Right Forearm Pulse Ox 98 93 98 Oxygen Delivery Method Mechanical Ventilator Mechanical Ventilator Oxygen Flow Rate (L/min) Fraction of Inspired Oxygen (FIO2) 30 04/15/21 23:00 04/15/21 23:08 04/16/21 00:00 Temperature 97 F L Temperature Source Temporal Pulse Rate 67 58 L Respiratory Rate 16 14 Respiratory Effort Mechanically Ventilated Respiratory Depth Normal Respiratory Pattern Normal Blood Pressure 129/94 H Blood Pressure [BP] 141/103 H 129/94 H Blood Pressure Mean 105 Blood Pressure Mean [BP] 115 105 Blood Pressure Source Monitor Blood Pressure Source [BP] Monitor Monitor Blood Pressure Location Pulse Ox 97 98 Oxygen Delivery Method Mechanical Ventilator Mechanical Ventilator Mechanical Ventilator Oxygen Flow Rate (L/min) Fraction of Inspired Oxygen (FIO2) 04/16/21 00:34 04/16/21 00:41 04/16/21 01:00 Temperature Temperature Source Pulse Rate 57 L 58 L 59 L Respiratory Rate 14 Respiratory Effort Respiratory Depth Respiratory Pattern Blood Pressure 122/85 H Blood Pressure [BP] 126/84 H Blood Pressure Mean Blood Pressure Mean [BP] 98 Blood Pressure Source Blood Pressure Source [BP] Monitor Blood Pressure Location Pulse Ox 100 Oxygen Delivery Method Mechanical Ventilator Oxygen Flow Rate (L/min) Fraction of Inspired Oxygen (FIO2) 04/16/21 02:00 04/16/21 03:00 04/16/21 04:00 Temperature Temperature Source Pulse Rate 70 57 L 57 L Respiratory Rate 14 14 14 Respiratory Effort Respiratory Depth Respiratory Pattern Normal Blood Pressure Blood Pressure [BP] 118/89 H 125/88 H 133/89 H Blood Pressure Mean Blood Pressure Mean [BP] 98 100 103 Blood Pressure Source Blood Pressure Source [BP] Monitor Monitor Monitor Blood Pressure Location Pulse Ox 98 100 100 Oxygen Delivery Method Mechanical Ventilator Mechanical Ventilator Mechanical Ventilator Oxygen Flow Rate (L/min) Fraction of Inspired Oxygen (FIO2) 30 04/16/21 04:50 04/16/21 05:00 04/16/21 06:53 Temperature Temperature Source Pulse Rate 62 59 L 68 Respiratory Rate 14 14 14 Respiratory Effort Respiratory Depth Respiratory Pattern Normal Normal Blood Pressure Blood Pressure [BP] 128/88 H Blood Pressure Mean Blood Pressure Mean [BP] 101 Blood Pressure Source Blood Pressure Source [BP] Monitor Blood Pressure Location Pulse Ox 99 100 96 Oxygen Delivery Method Mechanical Ventilator Oxygen Flow Rate (L/min) Fraction of Inspired Oxygen (FIO2) 30 04/16/21 07:02 Temperature Temperature Source Pulse Rate 64 Respiratory Rate 14 Respiratory Effort Respiratory Depth Respiratory Pattern Normal Blood Pressure Blood Pressure [BP] Blood Pressure Mean Blood Pressure Mean [BP] Blood Pressure Source Blood Pressure Source [BP] Blood Pressure Location Pulse Ox Oxygen Delivery Method Oxygen Flow Rate (L/min) Fraction of Inspired Oxygen (FIO2) Weight Weight: 129.8 kg Body Mass Index (BMI) 42.7 Results Lab / Micro Data Result Diagrams: 04/16/21 05:30 04/16/21 05:30 Labs: Laboratory Results - last 24 hr 04/15/21 19:22: B-Natriuretic Peptide 206.0 H 04/15/21 19:30: WBC 16.2 H, RBC 3.11 L, Hgb 9.5 L, Hct 32.4 L, MCV 104.2 H, MCH 30.5, MCHC 29.3 L, RDW Std Deviation 50.1 H, RDW Coeff of Immanuel 13.1, Plt Count 394, MPV 10.6, Immature Gran % (Auto) 2.000 H, Neut % (Auto) 70.2 H, Lymph % (Auto) 19.3, Burnet % (Auto) 7.3, Eos % (Auto) 0.8, Baso % (Auto) 0.4, Absolute Neuts (auto) 11.4 H, Absolute Lymphs (auto) 3.13, Nucleated RBC % 0 04/15/21 19:30: PT 13.6, INR 1.1, APTT 32.3 04/15/21 19:30: Sodium 138, Potassium 4.6, Chloride 110 H, Carbon Dioxide 24.0, Anion Gap 4 L, BUN 22 H, Creatinine 1.48 H, Estim Creat Clear Calc 44.89, Est GFR (MDRD) Af Amer 47 L, Est GFR (MDRD) Non-Af 39 L, BUN/Creatinine Ratio 14.9, Glucose 161 H, Calcium 9.1, Total Bilirubin 0.20, AST 33, ALT 36, Alkaline Phosphatase 146 H, Troponin I High Sens 75 H, Total Protein 8.2, Albumin 3.5, Globulin 4.7 H, Albumin/Globulin Ratio 0.7 L 04/15/21 19:30: Lactic Acid 1.7 04/15/21 19:30: Total Creatine Kinase 88 04/15/21 19:30: Phosphorus 5.3 H, Magnesium 2.1 04/15/21 19:40: Urine Color Yellow, Urine Clarity Sl. Cloudy, Urine pH 6.0, Ur Specific Halls 1.015, Urine Protein 500 H, Urine Glucose (UA) 50 H, Urine Ketones Negative, Urine Occult Blood 150 H, Urine Nitrite Negative, Urine Bilirubin Negative, Urine Urobilinogen Normal, Ur Leukocyte Esterase Negative, Urine RBC 10-25 SEEN, Urine WBC 0 SEEN, Ur Squamous Epith Cells 0-5 SEEN, Urine Bacteria 0 SEEN, Urine Mucus 0 SEEN 04/15/21 19:40: Urine Opiates Screen NEGATIVE, Urine Methadone Screen NEGATIVE, Ur Barbiturates Screen NEGATIVE, Ur Phencyclidine Scrn NEGATIVE, Ur Amphetamines Screen NEGATIVE, U Methamphetamin-MDMA NEGATIVE, U Benzodiazepines Scrn NEGATIVE, Urine Cocaine Screen NEGATIVE, U Cannabinoids Screen NEGATIVE, Ur Drug Screen Comment 04/15/21 20:55: COVID-19 (GIL) Negative 04/16/21 00:25: POC Glucose 137 H 04/16/21 05:30: WBC 8.8, RBC 3.02 L, Hgb 9.1 L, Hct 31.5 L, MCV 104.3 H, MCH 30.1, MCHC 28.9 L, RDW Std Deviation 49.7 H, RDW Coeff of Immanuel 13.2, Plt Count 294, MPV 10.4, Immature Gran % (Auto) 0.500, Neut % (Auto) 68.1, Lymph % (Auto) 22.9, Burnet % (Auto) 7.6, Eos % (Auto) 0.6, Baso % (Auto) 0.3, Absolute Neuts (auto) 6.0, Absolute Lymphs (auto) 2.02, Nucleated RBC % 0 04/16/21 05:30: Sodium 138, Potassium 4.0, Chloride 111 H, Carbon Dioxide 22.0, Anion Gap 5, BUN 17, Creatinine 0.87, Estim Creat Clear Calc 76.36, Est GFR (MDRD) Af Amer 87, Est GFR (MDRD) Non-Af 72, BUN/Creatinine Ratio 19.6, Glucose 91, Calcium 8.4 L, Total Bilirubin 0.20, AST 95 H, ALT 79 H, Alkaline Phosphatase 176 H, Total Protein 7.2, Albumin 3.0 L, Globulin 4.2, Albumin/Globulin Ratio 0.7 L 04/16/21 05:30: TSH 0.68 Micro: Microbiology 04/15/21 20:55 Mucosa - Nose Respiratory Panel (PCR) - Final ABG Data ABG results: ABG 04/15/21 04/16/21 21:01 06:39 Specimen Type ART ART Sample Site L Brach L Radial pH 7.19 L* 7.22 L Bicarbonate Actual 20.0 L 20.9 L Total CO2 22 23 Base Excess -8 L -7 L O2 Saturation 94 L 87 L O2 % 40 30 ABG pCO2 52.6 H 50.7 H ABG pO2 86 64 L Олег Test Positive Positive Respiration Rate 14 14 O2 Delivery Device Adult Vent Adult Vent Vent Mode AC AC Tidal Volume 450 400 POC PEEP 5 5 Crit Call To/Read Back Yes Blood Gas Notified Whom Hilario Radiology Impression Brain CT 04/15/21 19:22 IMPRESSION: Normal unenhanced CT scan of the brain. There is continued concern, MRI is recommended Electronically Signed: Reggie Forte DO at 20:46 EDT Tel [phone], Service support , Chest CTA 04/15/21 19:22 IMPRESSION: 1. No evidence of pulmonary embolus. 2. No aortic dissection or aneurysm. 3. Mild cardiomegaly with prominent pulmonary veins and consolidation in the dependent lungs. Question mild vascular congestion and CHF. Electronically Signed: Reggie Forte DO at 20:54 EDT Tel [phone], Service support , Chest X-Ray 04/15/21 19:23 IMPRESSION: Endotracheal tube in the right mainstem bronchus with volume loss left lung and mediastinal shift. Should be pulled back approximately 3 cm. Endotracheal tube as described. N.B. : The above Results were Read Back by Reggie Forte DO to Harlan Rich MD, and understanding confirmed on 04/15/2021 20:38:52 (ET). Electronically Signed: Reggie Forte DO at 20:40 EDT Tel [phone], Service support , ADDENDUM: 04/15/212046 IMPRESSION: Endotracheal tube in the right mainstem bronchus with volume loss left lung and mediastinal shift. Should be pulled back approximately 3 cm. Endotracheal tube as described. N.B. : The above Results were Read Back by Reggie Forte DO to Harlan Rich MD, and understanding confirmed on 04/15/2021 20:38:52 (ET). Electronically Signed: Reggie Forte DO at 20:40 EDT Tel [phone], Service support , KUB X-Ray 04/15/21 19:23 IMPRESSION: NG tube is present with tip in the stomach. Opacification of the left lung base could represent a pleural effusion versus edema and/or infection. Electronically Signed: Marcus Goode MD at 20:11 EDT Tel , Service support , Assessment & Plan Assessment/Plan (1) Cardiopulmonary arrest with successful resuscitation: (2) Acute respiratory failure with hypoxia and hypercapnia: (3) Congestive heart failure: QUALIFIERS: Heart failure type: unspecified Heart failure chronicity: acute Qualified Code(s): I50.9 - Heart failure, unspecified (4) Acidosis, lactic: PLAN: Patient is a 55-year-old lady who was brought to the emergency department after he was found unresponsive for an undetermined duration. EMS found patient to be in PEA. ACLS initiated on the field. Patient did receive epinephrine with ROSC. Patient was brought to the emergency department where patient was intubated and subsequently admitted to the intensive care unit 1. Cardiopulmonary arrest 2. Acute hypoxic and hypercapnic respiratory failure 3. Acute congestive heart failure 4. Morbid obesity 5. Obstructive sleep apnea 6. Chronic pain syndrome 7. History of DVT/PE 8. Depression with anxiety 9. GERD 10. Chronic hypoxic respiratory failure secondary to overlap syndrome (COPD and asthma) 11. Essential hypertension 12. Dyslipidemia 13. Seizure disorder 14. History of CVA with residual right-sided weakness 15. 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
--- NOTE | 2021-04-16 07:38 | EX.PCM.CONCC ---
Assessment & Plan Assessment/Plan (1) Cardiopulmonary arrest with successful resuscitation: PLAN: RECOMMENDATIONS: 1. Continue patient on assist control mode of mechanical ventilation. 2. Wean FiO2 and PEEP as tolerated. 3. Start empiric antimicrobials. 4. Obtain and send sputum for culture. 5. Continue current sedation regimen. 6. Cardiology consultation. 7. Obtain echocardiogram. 8. Continue appropriate ICU prophylaxis. IMPRESSIONS: 1. Acute combined respiratory failure status post cardiac arrest Unclear precipitating etiology for the patient's arrest. She does not have a known prior cardiac history. Her prior pulmonary work-up several years ago revealed evidence of a restrictive ventilatory impairment, despite the patient's prior tobacco abuse history. She does have a known history of sleep apnea and most likely has alveolar hypoventilation as a consequence of her morbid obesity as well. The patient was successfully resuscitated. She does appear to have intact neurological function. We will continue to provide supportive measures including invasive mechanical ventilation. Wean FiO2 and PEEP as tolerated. Given the patient's CTA chest showed some basilar consolidations, will place her empirically on antimicrobials. 2. Acute kidney injury Likely prerenal in etiology and related to #1. Anticipate improvement with stabilization of hemodynamics and oxygenation status. Continue to monitor urine output. No current indication for renal replacement therapy. 3. History of DVT/PE Continue systemic anticoagulation as ordered. 4. Recent diagnosis of breast cancer/anemia/chronic pain syndrome/hypertension/seizure disorder/morbid obesity/STEPHANIE Complicates care, management, recovery and prognosis. Continue home medications as indicated. Recommend reinitiation of Pap therapy once extubated. TIME: 37 minutes of critical care time, independent of procedures, was spent addressing the patient's acute combined respiratory failure status post cardiac arrest, acute kidney injury, history of DVT/PE, review of all data and collaboration with the care team. ([id number]) HPI Consult Data Date of Consult: 04/16/21 HPI Narrative Reason for Consultation: Acute respiratory failure status post cardiac arrest HPI Narrative: The patient is a 55-year-old female, with a history as outlined below, who presented to the emergency department on April 15 after being found unresponsive by a neighbor. The patient was noted to be in PEA cardiac arrest by EMS and received advanced cardiac life support along with Narcan. ROSC was subsequently achieved. The patient does have a history of bilateral pulmonary emboli initially diagnosed in December 2015, along with prior tobacco abuse history, obstructive sleep apnea, history of breast cancer depression, anxiety and chronic pain syndrome. Pulmonary function testing from October 2016 revealed evidence of a mild restrictive ventilatory defect with asymmetric reduction in diffusing capacity and significantly reduced ERV, likely related to the patient's body habitus. On presentation to the emergency department, the patient was noted to be afebrile and hemodynamically stable. The patient was intubated on arrival. Initial laboratory evaluation revealed a white blood cell count of 16,000. Coagulation profile was unremarkable. Chemistry profile was notable for a creatinine of 1.48. Urine analysis was unremarkable. Toxicology screen was negative. Coronavirus testing was negative. CT head was unremarkable. CTA chest showed no evidence for pulmonary embolism. Bibasilar consolidations were noted. The patient was subsequently admitted to the medical intensive care unit for further management. [facility] Medical History (Updated 04/16/21 @ 04:[address] Aleksandra Hurley MD) Acute and chronic respiratory failure Anemia Anxiety and depression Back pain Bilateral peripheral pulmonary emboli BiPAP (biphasic positive airway pressure) dependence Cardiology follow-up encounter Chest pain Chronic narcotic dependence COPD (chronic obstructive pulmonary disease) COPD exacerbation Dependence on continuous supplemental oxygen Depression Diastolic dysfunction Essential hypertension Former smoker GERD (gastroesophageal reflux disease) HLD (hyperlipidemia) Hx of cardiovascular stress test Hx of echocardiogram Hypothyroidism Morbid obesity MSSA (methicillin susceptible Staphylococcus aureus) pneumonia Obesity On home oxygen therapy STEPHANIE (obstructive sleep apnea) Pulmonary embolism Restrictive lung disease Seizure disorder SOB (shortness of breath) Syncope and collapse TIA (transient ischemic attack) TIA (transient ischemic attack) Wears dentures Wears glasses Home Medications levetiracetam 500 mg PO BID 11/29/15 [History Last Taken 04/05/21] albuterol sulfate 90 mcg/actuation aerosol inhaler 2 puff INHALATION Q4H PRN g 08/01/17 [History Last Taken 03/03/18] omeprazole 40 mg capsule,delayed release 40 mg PO DAILY 08/01/17 [History Last Taken 04/05/21] rivaroxaban 20 mg tablet 20 mg PO DAILY #90 tab 03/26/19 [Rx Last Taken 04/01/21] atorvastatin 80 mg tablet 80 mg PO DAILY 03/02/21 [History Last Taken Unknown] furosemide 20 mg tablet 20 mg PO DAILY 03/02/21 [History Last Taken Unknown] losartan 100 mg tablet 100 mg PO DAILY 03/02/21 [History Last Taken 04/05/21] metoprolol succinate 100 mg tablet,extended release 24 hr 100 mg PO QHS 03/02/21 [History Last Taken Unknown] spironolactone 50 mg tablet 50 mg PO DAILY 03/02/21 [History Last Taken 03/22/21 07:30] venlafaxine 75 mg capsule,extended release 24 hr 75 mg PO DAILY 03/02/21 [History Last Taken 03/22/21 07:30] clonazepam [Klonopin] 0.5 mg PO BID 03/15/21 [History Last Taken 03/22/21 07:30] magnesium 200 mg PO DAILY 03/15/21 [History Last Taken Unknown] mometasone-formoterol [Dulera] 2 puff INHALATION Q12H PRN 03/15/21 [History Last Taken Unknown] oxycodone 5 mg PO Q8H PRN 5 Days #10 cap 04/05/21 [Rx Last Taken Unknown] Allergy/AdvReac Type Severity Reaction Status Date / Time aspirin Allergy Hives Verified 04/04/21 10:33 ibuprofen Allergy Hives Verified 04/04/21 10:33 ketorolac tromethamine Allergy Angioedema Verified 04/04/21 10:33 [From Toradol] meperidine HCl [From Demerol] Allergy Other Verified 04/04/21 10:33 nitroglycerin Allergy Angioedema Verified 04/04/21 10:33 nut - unspecified Allergy Hives Verified 04/04/21 10:33 Penicillins [PCN] Allergy Hives Verified 04/04/21 10:33 tramadol HCl [From Ultram] Allergy Angioedema Verified 04/04/21 10:33 BENTYL Allergy Itching Uncoded 04/04/21 10:33 Family History Brother Myocardial infarction Father Colon cancer Surgical History (Updated 04/15/21 @ 20:[address] Aleksandra Hurley MD) History of cholecystectomy History of hysterectomy History of left breast biopsy Hx of appendectomy S/P lumpectomy, left breast Social History (Updated 04/15/21 @ 20:[address] Aleksandra Hurley MD) household members: none Smoking Status: Former smoker quit date: 01/21/16 pack-years: 32 second hand exposure: Yes alcohol intake: never substance use type: does not use ROS Review of Systems ROS Unobtainable: due to encephalopathy and due to endotracheal tube Physical Exam Const no apparent distress General Appearance: intubated and patient mechanically ventilated Nutritional Appearance: morbidly obese HEENT normocephalic and head/scalp atraumatic Mouth: endotracheal tube in place and OG tube in place Eyes PERRL and conjunctivae normal Neck supple General: trachea midline Chest inspection of chest normal Resp Auscultation: diminished lung sounds; Negative for rales, rhonchi or wheezes Cardio regular rate and regular rhythm GI normal to inspection, nondistended, normoactive bowel sounds Extremity no clubbing, cyanosis or edema Skin no rashes or lesions noted Neuro Sensorium / Orientation: sedated on vent Lab / Micro Data Result Diagrams: 04/16/21 05:30 04/16/21 05:30 Labs: Laboratory Results - last 24 hr 04/15/21 19:22: B-Natriuretic Peptide 206.0 H 04/15/21 19:30: WBC 16.2 H, RBC 3.11 L, Hgb 9.5 L, Hct 32.4 L, MCV 104.2 H, MCH 30.5, MCHC 29.3 L, RDW Std Deviation 50.1 H, RDW Coeff of Immanuel 13.1, Plt Count 394, MPV 10.6, Immature Gran % (Auto) 2.000 H, Neut % (Auto) 70.2 H, Lymph % (Auto) 19.3, Gosper % (Auto) 7.3, Eos % (Auto) 0.8, Baso % (Auto) 0.4, Absolute Neuts (auto) 11.4 H, Absolute Lymphs (auto) 3.13, Nucleated RBC % 0 04/15/21 19:30: PT 13.6, INR 1.1, APTT 32.3 04/15/21 19:30: Sodium 138, Potassium 4.6, Chloride 110 H, Carbon Dioxide 24.0, Anion Gap 4 L, BUN 22 H, Creatinine 1.48 H, Estim Creat Clear Calc 44.89, Est GFR (MDRD) Af Amer 47 L, Est GFR (MDRD) Non-Af 39 L, BUN/Creatinine Ratio 14.9, Glucose 161 H, Calcium 9.1, Total Bilirubin 0.20, AST 33, ALT 36, Alkaline Phosphatase 146 H, Troponin I High Sens 75 H, Total Protein 8.2, Albumin 3.5, Globulin 4.7 H, Albumin/Globulin Ratio 0.7 L 04/15/21 19:30: Lactic Acid 1.7 04/15/21 19:30: Total Creatine Kinase 88 04/15/21 19:30: Phosphorus 5.3 H, Magnesium 2.1 04/15/21 19:40: Urine Color Yellow, Urine Clarity Sl. Cloudy, Urine pH 6.0, Ur Specific Drummond 1.015, Urine Protein 500 H, Urine Glucose (UA) 50 H, Urine Ketones Negative, Urine Occult Blood 150 H, Urine Nitrite Negative, Urine Bilirubin Negative, Urine Urobilinogen Normal, Ur Leukocyte Esterase Negative, Urine RBC 10-25 SEEN, Urine WBC 0 SEEN, Ur Squamous Epith Cells 0-5 SEEN, Urine Bacteria 0 SEEN, Urine Mucus 0 SEEN 04/15/21 19:40: Urine Opiates Screen NEGATIVE, Urine Methadone Screen NEGATIVE, Ur Barbiturates Screen NEGATIVE, Ur Phencyclidine Scrn NEGATIVE, Ur Amphetamines Screen NEGATIVE, U Methamphetamin-MDMA NEGATIVE, U Benzodiazepines Scrn NEGATIVE, Urine Cocaine Screen NEGATIVE, U Cannabinoids Screen NEGATIVE, Ur Drug Screen Comment 04/15/21 20:55: COVID-19 (GIL) Negative 04/16/21 00:25: POC Glucose 137 H 04/16/21 05:30: WBC 8.8, RBC 3.02 L, Hgb 9.1 L, Hct 31.5 L, MCV 104.3 H, MCH 30.1, MCHC 28.9 L, RDW Std Deviation 49.7 H, RDW Coeff of Immanuel 13.2, Plt Count 294, MPV 10.4, Immature Gran % (Auto) 0.500, Neut % (Auto) 68.1, Lymph % (Auto) 22.9, Gosper % (Auto) 7.6, Eos % (Auto) 0.6, Baso % (Auto) 0.3, Absolute Neuts (auto) 6.0, Absolute Lymphs (auto) 2.02, Nucleated RBC % 0 04/16/21 05:30: Sodium 138, Potassium 4.0, Chloride 111 H, Carbon Dioxide 22.0, Anion Gap 5, BUN 17, Creatinine 0.87, Estim Creat Clear Calc 76.36, Est GFR (MDRD) Af Amer 87, Est GFR (MDRD) Non-Af 72, BUN/Creatinine Ratio 19.6, Glucose 91, Calcium 8.4 L, Total Bilirubin 0.20, AST 95 H, ALT 79 H, Alkaline Phosphatase 176 H, Total Protein 7.2, Albumin 3.0 L, Globulin 4.2, Albumin/Globulin Ratio 0.7 L 04/16/21 05:30: TSH 0.68 Micro: Microbiology 04/15/21 20:55 Mucosa - Nose Respiratory Panel (PCR) - Final ABG Data ABG results: ABG 04/15/21 04/16/21 21:01 06:39 Specimen Type ART ART Sample Site L Brach L Radial pH 7.19 L* 7.22 L Bicarbonate Actual 20.0 L 20.9 L Total CO2 22 23 Base Excess -8 L -7 L O2 Saturation 94 L 87 L O2 % 40 30 ABG pCO2 52.6 H 50.7 H ABG pO2 86 64 L Олег Test Positive Positive Respiration Rate 14 14 O2 Delivery Device Adult Vent Adult Vent Vent Mode AC AC Tidal Volume 450 400 POC PEEP 5 5 Crit Call To/Read Back Yes Blood Gas Notified Whom Hilario Radiology Impression Brain CT 04/15/21 19:22 IMPRESSION: Normal unenhanced CT scan of the brain. There is continued concern, MRI is recommended Electronically Signed: Reggie Forte DO at 20:46 EDT Tel [phone], Service support , Chest CTA 04/15/21 19:22 IMPRESSION: 1. No evidence of pulmonary embolus. 2. No aortic dissection or aneurysm. 3. Mild cardiomegaly with prominent pulmonary veins and consolidation in the dependent lungs. Question mild vascular congestion and CHF. Electronically Signed: Reggie Forte DO at 20:54 EDT Tel [phone], Service support , Chest X-Ray 04/15/21 19:23 IMPRESSION: Endotracheal tube in the right mainstem bronchus with volume loss left lung and mediastinal shift. Should be pulled back approximately 3 cm. Endotracheal tube as described. N.B. : The above Results were Read Back by Reggie Forte DO to Harlan Rich MD, and understanding confirmed on 04/15/2021 20:38:52 (ET). Electronically Signed: Reggie Forte DO at 20:40 EDT Tel [phone], Service support , ADDENDUM: 04/15/212046 IMPRESSION: Endotracheal tube in the right mainstem bronchus with volume loss left lung and mediastinal shift. Should be pulled back approximately 3 cm. Endotracheal tube as described. N.B. : The above Results were Read Back by Reggie Forte DO to Harlan Rich MD, and understanding confirmed on 04/15/2021 20:38:52 (ET). Electronically Signed: Reggie Forte DO at 20:40 EDT Tel [phone], Service support , KUB X-Ray 04/15/21 19:23 IMPRESSION: NG tube is present with tip in the stomach. Opacification of the left lung base could represent a pleural effusion versus edema and/or infection. Electronically Signed: Marcus Goode MD at 20:11 EDT Tel , Service support , Chest X-Ray 04/16/21 05:20 IMPRESSION: 1. Interval retraction of the endotracheal tube with the tip approximately 3 cm above the basilio. 2. Nasogastric tube which is unchanged. 3. Improved left lower lobe atelectasis. Electronically Signed: Javier Adams MD at 7:27 EDT Tel , Service support , Charges/Coding Procedures Hospitalists Procedures: [id number] [facility]
[2021-04-16 08:38] LABS: Troponin-I HS 97 pg/mL (3.0-54.0)
[2021-04-16] MEDS: Furosemide 40 MG/4 ML Vial IV ×2 (08:38→17:59)
[2021-04-16 09:12] LABS: Procalcitonin < 0.01 ng/mL (0.00-0.09)
--- NOTE | 2021-04-16 09:34 | PCM.CONS.C ---
Assessment & Plan Assessment/Plan (1) Cardiopulmonary arrest with successful resuscitation: PLAN: The patient is reported as having a cardiopulmonary arrest with findings of PEA. The etiology is unclear at this time. The patient has been evaluated for underlying laboratory/metabolic abnormalities. She was found to be anemic. She had a toxicology screen which was reported as negative. The patient is not known to have underlying cardiovascular disease. She is being followed with cardiac enzymes, ECG, and an echocardiogram is pending. Her troponin I levels are somewhat elevated. It is unclear whether that represents an acute coronary syndrome event that could lead to her cardiopulmonary rest event versus being secondary to her cardiopulmonary arrest event and her underlying pulmonary disease process and concerns of hypoxia leading to a global myocardial ischemia, etc. Of note, with respect to her ECG, it demonstrated normal sinus rhythm with a possible prolonged QT interval. Based upon review of previous ECGs it does not appear that was commented upon in the past, however, it is unclear as to whether that may be a new diagnosis leading to a cardiac dysrhythmia leading to this event versus being a change secondary to her acute cardiopulmonary arrest event. Thus her ECGs will be followed. At the present time she will continue to be followed as noted above. Depending upon her clinical course she may or may not need additional cardiovascular diagnostic studies, etc. In the interim she will continue medical management/support as deemed appropriate. It appears based upon the patient's H&P she has been on medical therapy which has included antiplatelet agents such as clopidogrel/Plavix (reportedly for a history of TIA), beta-blockers, diuretics with furosemide and spironolactone, ARB's, lipid-lowering agents/statins, and anticoagulant agents such as rivaroxaban (reportedly for history of thromboembolic disease/pulmonary emboli). (2) Acute respiratory failure with hypoxia and hypercapnia: PLAN: The patient was reported as having an acute respiratory failure event. She is being evaluated by internal medicine and pulmonology/critical care medicine. She is currently mechanically intubated/ventilated. (3) Restrictive lung disease: PLAN: The patient is reported as having a history of underlying restrictive lung disease thought possibly secondary to her morbid obesity. She has been evaluated by pulmonology in the past. Unclear whether this is a contributing component to her cardiopulmonary arrest event. (4) LEIGH ANN (acute kidney injury): PLAN: The patient had what appeared to be an acute elevation of her creatinine level. It appears to be improving. This may be secondary to her previous event. Her renal function will need to be followed. (5) Abnormal cardiac enzyme level: PLAN: She does have abnormal cardiac enzymes. Again it is unclear whether this may represent a primary event versus a secondary event secondary to her report of hypoxemia requiring mechanical intubation/ventilation. Her cardiac enzymes will be followed as well as her other noninvasive studies such as ECGs. Her echocardiogram will be reviewed. Depending upon her clinical course she may or may not need additional cardiovascular diagnostic studies. (6) Diastolic dysfunction: PLAN: Based upon her previous transthoracic echocardiogram there was concerns of impaired relaxation on the left ventricle compatible with decreased diastolic compliance. According to her family members present there is been no report of any acute CHF events. She has been on medical management. (7) Anemia: PLAN: She does have anemia. The etiology is unclear at this time. She will need to be followed for any worsening anemia that would require additional evaluation and/or PRBC transfusion. (8) HLD (hyperlipidemia): QUALIFIERS: Hyperlipidemia type: unspecified Qualified Code(s): E78.5 - Hyperlipidemia, unspecified PLAN: She has a history of hyperlipidemia and appears she has been on lipid-lowering therapy. (9) Essential hypertension: PLAN: She has a history of hypertension and it appears she has been on multiple antihypertensive agents. (10) Breast infection: PLAN: She has undergone a diagnosis of breast carcinoma and a recent lumpectomy and a subsequent adverse event to her wound and subsequent infection. She has been on antibiotic biotic therapy. It is unclear whether this infectious disease process contributed to her acute cardiopulmonary arrest situation. She will need continued evaluation care per internal medicine and other specialties/subspecialties as needed such as surgery and infectious disease, etc. (11) Morbid obesity: PLAN: Unfortunately she is morbidly obese. It appears that this has been a contributing factor to her underlying pulmonary disease findings in the past. Addt'l Comments The patient's case has been discussed and reviewed with Dr. Christianson. This note was generated using a voice recognition system and there may be incorrect words, spelling or punctuation that were not noted when reviewing the office note prior to saving. HPI Consult Data Date of Consult: 04/16/21 HPI Narrative HPI Narrative: LUIS A CUMMINGS, is a 55 year old white female who presents for consultation based upon concerns of an underlying PEA/cardiopulmonary arrest event. According to the [facility] medical staff , medical records, and the patient's son and granddaughter who are present at the bedside, the patient was found down and unresponsive. The EMS system was activated. The patient was found to be in PEA. The patient underwent BLS/ACLS protocol. She had return of pulse and pressure in respirations. She was brought to the [facility] emergency department where she was mechanically intubated/ventilated. She was subsequently placed in the ICU for further evaluation and care. This a.m. she has been reported as responding to verbal stimuli by the ICU staff. According to the patient's family members present there is no history of any cardiovascular disease. They report that she has a history of underlying pulmonary disease. She has been evaluated by pulmonology in the past and apparently has a restrictive component thought secondary to her morbid obesity as well as STEPHANIE for which there is a question of noncompliance with her therapy. They note she recently underwent a diagnosis of breast carcinoma and a breast lumpectomy. They state that her recently experienced a sudden event, fell into her, as a result of the fall ruptured her recent breast surgical site sutures, requiring her to go through additional evaluation and care with concerns of an ongoing breast infection requiring antibiotic therapy. At the present time she remains mechanically intubated and ventilated. She does appear to open her eyes and turn her head. Her troponin I levels have been somewhat elevated. Her baseline ECG demonstrated normal sinus rhythm with a question of a prolonged QT interval. There did not appear to be any acute ECG changes such as acute ST/T wave changes. She has undergone chest x-ray and chest CT scan. The results are as noted below. Of note there was no report of any great vessel disease/thromboembolic disease. [facility] Medical History (Updated 04/16/21 @ 10:[address] Kee Bagley MD) Acute and chronic respiratory failure Anemia Anemia Anxiety and depression Back pain Bilateral peripheral pulmonary emboli BiPAP (biphasic positive airway pressure) dependence Breast infection Cardiology follow-up encounter Chest pain Chronic narcotic dependence COPD (chronic obstructive pulmonary disease) COPD exacerbation Dependence on continuous supplemental oxygen Depression Diastolic dysfunction Essential hypertension Former smoker GERD (gastroesophageal reflux disease) HLD (hyperlipidemia) Hx of cardiovascular stress test Hx of echocardiogram Hypothyroidism Morbid obesity MSSA (methicillin susceptible Staphylococcus aureus) pneumonia Obesity On home oxygen therapy STEPHANIE (obstructive sleep apnea) Pulmonary embolism Restrictive lung disease Seizure disorder SOB (shortness of breath) Syncope and collapse TIA (transient ischemic attack) TIA (transient ischemic attack) Wears dentures Wears glasses Home Medications levetiracetam 500 mg PO BID 11/29/15 [History Last Taken 04/05/21] albuterol sulfate 90 mcg/actuation aerosol inhaler 2 puff INHALATION Q4H PRN g 08/01/17 [History Last Taken 03/03/18] omeprazole 40 mg capsule,delayed release 40 mg PO DAILY 08/01/17 [History Last Taken 04/05/21] rivaroxaban 20 mg tablet 20 mg PO DAILY #90 tab 03/26/19 [Rx Last Taken 04/01/21] atorvastatin 80 mg tablet 80 mg PO DAILY 03/02/21 [History Last Taken Unknown] furosemide 20 mg tablet 20 mg PO DAILY 03/02/21 [History Last Taken Unknown] losartan 100 mg tablet 100 mg PO DAILY 03/02/21 [History Last Taken 04/05/21] metoprolol succinate 100 mg tablet,extended release 24 hr 100 mg PO QHS 03/02/21 [History Last Taken Unknown] spironolactone 50 mg tablet 50 mg PO DAILY 03/02/21 [History Last Taken 03/22/21 07:30] venlafaxine 75 mg capsule,extended release 24 hr 75 mg PO DAILY 03/02/21 [History Last Taken 03/22/21 07:30] clonazepam [Klonopin] 0.5 mg PO BID 03/15/21 [History Last Taken 03/22/21 07:30] magnesium 200 mg PO DAILY 03/15/21 [History Last Taken Unknown] mometasone-formoterol [Dulera] 2 puff INHALATION Q12H PRN 03/15/21 [History Last Taken Unknown] oxycodone 5 mg PO Q8H PRN 5 Days #10 cap 04/05/21 [Rx Last Taken Unknown] Allergy/AdvReac Type Severity Reaction Status Date / Time aspirin Allergy Hives Verified 04/04/21 10:33 ibuprofen Allergy Hives Verified 04/04/21 10:33 ketorolac tromethamine Allergy Angioedema Verified 04/04/21 10:33 [From Toradol] meperidine HCl [From Demerol] Allergy Other Verified 04/04/21 10:33 nitroglycerin Allergy Angioedema Verified 04/04/21 10:33 nut - unspecified Allergy Hives Verified 04/04/21 10:33 Penicillins [PCN] Allergy Hives Verified 04/04/21 10:33 tramadol HCl [From Ultram] Allergy Angioedema Verified 04/04/21 10:33 BENTYL Allergy Itching Uncoded 04/04/21 10:33 Family History Brother Myocardial infarction Father Colon cancer Surgical History (Updated 04/15/21 @ 20:[address] Aleksandra Hurley MD) History of cholecystectomy History of hysterectomy History of left breast biopsy Hx of appendectomy S/P lumpectomy, left breast Social History (Updated 04/15/21 @ 20:[address] Aleksandra Hurley MD) household members: none Smoking Status: Former smoker quit date: 01/21/16 pack-years: 32 second hand exposure: Yes alcohol intake: never substance use type: does not use ROS ROS Narrative Review of systems: Obtained by the family members present: No report of any concerns of ongoing chest discomfort, palpitations, near syncopal or syncopal events. Review of Systems ROS Unobtainable: other Details: Due to the patient being in the ICU with mechanical intubation/ventilation at this time. Physical Exam Narrative The patient is currently in the ICU mechanically intubated and ventilated. HEENT normocephalic and head/scalp atraumatic Eyes PERRL Neck no JVD Resp Resp Narrative: Disseminated upper airway sound Cardio regular rate, regular rhythm, S1 normal heart sound and S2 normal heart sound GI normal to inspection, nondistended, normoactive bowel sounds Extremity no pedal edema Skin no rashes or lesions noted Procedure Criteria Type of Procedure Procedure Type: Elective Elective Risks - COVID COVID Risk Discussion: The surgeon/proceduralist and patient have discussed in detail the risk of exposure to and/or potential harm posed by the COVID-19 virus with having a surgery/procedure at this time versus the risk of delaying the surgery/procedure. It is not possible to know either the risk of delaying the surgery or procedure or chance of getting an infection with perfect accuracy, but a joint decision was made between the patient and the surgeon/proceduralist to proceed at this time with the scheduled surgery/procedure as indicated on the consent form. Objective Data Vital Signs: Vital Signs Temp Pulse Resp BP Pulse Ox 97 F L 64 14 127/82 H 98 04/16/21 00:00 04/16/21 07:02 04/16/21 07:02 04/16/21 07:00 04/16/21 07:00 Oxygen Flow Rate (L/min) 15 Oxygen Delivery Method Mechanical Ventilator Weight: 286 lb 2.56 oz Body Mass Index (BMI) 42.7 Intake & Output: Intake and Output for Last 24 Hours 04/14/21 04/15/21 04/16/21 23:59 23:59 23:59 Intake Total 81.78 / 91.01 350.31 / 350.31 Output Total 1150 / 1150 400 / 400 Balance -1068.22 / -1058.99 -49.69 / -49.69 Lab / Micro Data Result Diagrams: 04/16/21 05:30 04/16/21 05:30 Labs: Laboratory Results - last 24 hr 04/15/21 19:22: B-Natriuretic Peptide 206.0 H 04/15/21 19:30: WBC 16.2 H, RBC 3.11 L, Hgb 9.5 L, Hct 32.4 L, MCV 104.2 H, MCH 30.5, MCHC 29.3 L, RDW Std Deviation 50.1 H, RDW Coeff of Immanuel 13.1, Plt Count 394, MPV 10.6, Immature Gran % (Auto) 2.000 H, Neut % (Auto) 70.2 H, Lymph % (Auto) 19.3, [place] % (Auto) 7.3, Eos % (Auto) 0.8, Baso % (Auto) 0.4, Absolute Neuts (auto) 11.4 H, Absolute Lymphs (auto) 3.13, Nucleated RBC % 0 04/15/21 19:30: PT 13.6, INR 1.1, APTT 32.3 04/15/21 19:30: Sodium 138, Potassium 4.6, Chloride 110 H, Carbon Dioxide 24.0, Anion Gap 4 L, BUN 22 H, Creatinine 1.48 H, Estim Creat Clear Calc 44.89, Est GFR (MDRD) Af Amer 47 L, Est GFR (MDRD) Non-Af 39 L, BUN/Creatinine Ratio 14.9, Glucose 161 H, Calcium 9.1, Total Bilirubin 0.20, AST 33, ALT 36, Alkaline Phosphatase 146 H, Troponin I High Sens 75 H, Total Protein 8.2, Albumin 3.5, Globulin 4.7 H, Albumin/Globulin Ratio 0.7 L 04/15/21 19:30: Lactic Acid 1.7 04/15/21 19:30: Total Creatine Kinase 88 04/15/21 19:30: Phosphorus 5.3 H, Magnesium 2.1 04/15/21 19:40: Urine Color Yellow, Urine Clarity Sl. Cloudy, Urine pH 6.0, Ur Specific [place] 1.015, Urine Protein 500 H, Urine Glucose (UA) 50 H, Urine Ketones Negative, Urine Occult Blood 150 H, Urine Nitrite Negative, Urine Bilirubin Negative, Urine Urobilinogen Normal, Ur Leukocyte Esterase Negative, Urine RBC 10-25 SEEN, Urine WBC 0 SEEN, Ur Squamous Epith Cells 0-5 SEEN, Urine Bacteria 0 SEEN, Urine Mucus 0 SEEN 04/15/21 19:40: Urine Opiates Screen NEGATIVE, Urine Methadone Screen NEGATIVE, Ur Barbiturates Screen NEGATIVE, Ur Phencyclidine Scrn NEGATIVE, Ur Amphetamines Screen NEGATIVE, U Methamphetamin-MDMA NEGATIVE, U Benzodiazepines Scrn NEGATIVE, Urine Cocaine Screen NEGATIVE, U Cannabinoids Screen NEGATIVE, Ur Drug Screen Comment 04/15/21 20:55: COVID-19 (GIL) Negative 04/16/21 00:25: POC Glucose 137 H 04/16/21 05:30: Procalcitonin < 0.01 04/16/21 05:30: WBC 8.8, RBC 3.02 L, Hgb 9.1 L, Hct 31.5 L, MCV 104.3 H, MCH 30.1, MCHC 28.9 L, RDW Std Deviation 49.7 H, RDW Coeff of Immanuel 13.2, Plt Count 294, MPV 10.4, Immature Gran % (Auto) 0.500, Neut % (Auto) 68.1, Lymph % (Auto) 22.9, [place] % (Auto) 7.6, Eos % (Auto) 0.6, Baso % (Auto) 0.3, Absolute Neuts (auto) 6.0, Absolute Lymphs (auto) 2.02, Nucleated RBC % 0 04/16/21 05:30: Sodium 138, Potassium 4.0, Chloride 111 H, Carbon Dioxide 22.0, Anion Gap 5, BUN 17, Creatinine 0.87, Estim Creat Clear Calc 76.36, Est GFR (MDRD) Af Amer 87, Est GFR (MDRD) Non-Af 72, BUN/Creatinine Ratio 19.6, Glucose 91, Calcium 8.4 L, Total Bilirubin 0.20, AST 95 H, ALT 79 H, Alkaline Phosphatase 176 H, Total Protein 7.2, Albumin 3.0 L, Globulin 4.2, Albumin/Globulin Ratio 0.7 L 04/16/21 05:30: TSH 0.68 04/16/21 08:05: Troponin I High Sens 97 H Micro: Microbiology 04/15/21 20:55 Mucosa - Nose Respiratory Panel (PCR) - Final ABG Data ABG results: ABG 04/15/21 04/16/21 21:01 06:39 Specimen Type ART ART Sample Site L Brach L Radial pH 7.19 L* 7.22 L Bicarbonate Actual 20.0 L 20.9 L Total CO2 22 23 Base Excess -8 L -7 L O2 Saturation 94 L 87 L O2 % 40 30 ABG pCO2 52.6 H 50.7 H ABG pO2 86 64 L Олег Test Positive Positive Respiration Rate 14 14 O2 Delivery Device Adult Vent Adult Vent Vent Mode AC AC Tidal Volume 450 400 POC PEEP 5 5 Crit Call To/Read Back Yes Blood Gas Notified Whom [facility] Labs/Tests 04/15/21 19:22: B-Natriuretic Peptide 206.0 H 04/15/21 19:30: WBC 16.2 H, RBC 3.11 L, Hgb 9.5 L, Hct 32.4 L, MCV 104.2 H, MCH 30.5, MCHC 29.3 L, Plt Count 394, MPV 10.6, Immature Gran % (Auto) 2.000 H, Neut % (Auto) 70.2 H, Lymph % (Auto) 19.3, [place] % (Auto) 7.3, Eos % (Auto) 0.8, Baso % (Auto) 0.4, Absolute Neuts (auto) 11.4 H, Nucleated RBC % 0 04/15/21 19:30: PT 13.6, INR 1.1, APTT 32.3 04/15/21 19:30: Sodium 138, Potassium 4.6, Chloride 110 H, Carbon Dioxide 24.0, Anion Gap 4 L, BUN 22 H, Creatinine 1.48 H, Est GFR (MDRD) Af Amer 47 L, Est GFR (MDRD) Non-Af 39 L, BUN/Creatinine Ratio 14.9, Glucose 161 H, Calcium 9.1, Total Bilirubin 0.20 04/15/21 19:30: Lactic Acid 1.7 04/15/21 19:30: Phosphorus 5.3 H, Magnesium 2.1 04/15/21 19:40: Urine Color Yellow, Urine Clarity Sl. Cloudy, Urine pH 6.0, Ur Specific [place] 1.015, Urine Protein 500 H, Urine Glucose (UA) 50 H, Urine Ketones Negative, Urine Occult Blood 150 H, Urine Nitrite Negative, Urine Bilirubin Negative, Urine Urobilinogen Normal, Ur Leukocyte Esterase Negative, Urine RBC 10-25 SEEN, Urine WBC 0 SEEN 04/15/21 21:01: pH 7.19 L*, Bicarbonate Actual 20.0 L, Base Excess -8 L, O2 Saturation 94 L, ABG pCO2 52.6 H, ABG pO2 86, Олег Test Positive 04/16/21 05:30: WBC 8.8, RBC 3.02 L, Hgb 9.1 L, Hct 31.5 L, MCV 104.3 H, MCH 30.1, MCHC 28.9 L, Plt Count 294, MPV 10.4, Immature Gran % (Auto) 0.500, Neut % (Auto) 68.1, Lymph % (Auto) 22.9, [place] % (Auto) 7.6, Eos % (Auto) 0.6, Baso % (Auto) 0.3, Absolute Neuts (auto) 6.0, Nucleated RBC % 0 04/16/21 05:30: Sodium 138, Potassium 4.0, Chloride 111 H, Carbon Dioxide 22.0, Anion Gap 5, BUN 17, Creatinine 0.87, Est GFR (MDRD) Af Amer 87, Est GFR (MDRD) Non-Af 72, BUN/Creatinine Ratio 19.6, Glucose 91, Calcium 8.4 L, Total Bilirubin 0.20 04/16/21 06:39: pH 7.22 L, Bicarbonate Actual 20.9 L, Base Excess -7 L, O2 Saturation 87 L, ABG pCO2 50.7 H, ABG pO2 64 L, Олег Test Positive Rhythm: Sinus rhythm EKG: As noted above ECHO: 03-27-2017 The study was technically difficult Contrast injection was performed Based upon the 2D echocardiographic and contrast enhanced images obtained there appears to be grossly normal left ventricular size, wall motion, and systolic function The estimated ejection fraction is 65% The left atrium is mildly enlarged Trivial mitral valve insufficiency Trivial tricuspid valve insufficiency Right ventricular systolic pressure estimated to be 36 mmHg Trans-Doppler flow suggestive of impaired relaxation of left ventricle Radiography Diagnostic Testing: Radiology Impression Brain CT 04/15/21 19:22 IMPRESSION: Normal unenhanced CT scan of the brain. There is continued concern, MRI is recommended Electronically Signed: Reggie Forte DO at 20:46 EDT Tel [phone], Service support , Chest CTA 04/15/21 19:22 IMPRESSION: 1. No evidence of pulmonary embolus. 2. No aortic dissection or aneurysm. 3. Mild cardiomegaly with prominent pulmonary veins and consolidation in the dependent lungs. Question mild vascular congestion and CHF. Electronically Signed: Reggie Forte DO at 20:54 EDT Tel [phone], Service support , Chest X-Ray 04/15/21 19:23 IMPRESSION: Endotracheal tube in the right mainstem bronchus with volume loss left lung and mediastinal shift. Should be pulled back approximately 3 cm. Endotracheal tube as described. N.B. : The above Results were Read Back by Reggie Forte DO to Harlan Rich MD, and understanding confirmed on 04/15/2021 20:38:52 (ET). Electronically Signed: Reggie Forte DO at 20:40 EDT Tel [phone], Service support , ADDENDUM: 04/15/212046 IMPRESSION: Endotracheal tube in the right mainstem bronchus with volume loss left lung and mediastinal shift. Should be pulled back approximately 3 cm. Endotracheal tube as described. N.B. : The above Results were Read Back by Reggie Forte DO to Harlan Rich MD, and understanding confirmed on 04/15/2021 20:38:52 (ET). Electronically Signed: Reggie JannDO at 20:40 EDT Tel [phone], Service support , KUB X-Ray 04/15/21 19:23 IMPRESSION: NG tube is present with tip in the stomach. Opacification of the left lung base could represent a pleural effusion versus edema and/or infection. Electronically Signed: Marcus Goode MD at 20:11 EDT Tel , Service support , Chest X-Ray 04/16/21 05:20 IMPRESSION: 1. Interval retraction of the endotracheal tube with the tip approximately 3 cm above the basilio. 2. Nasogastric tube which is unchanged. 3. Improved left lower lobe atelectasis. Electronically Signed: Javier Adams MD at 7:27 EDT Tel , Service support ,
--- NOTE | 2021-04-16 09:38 | PCM.PN.HOSP ---
Subjective Subjective Patient is a 55-year-old lady who was brought to the emergency department after he was found unresponsive for an undetermined duration. EMS found patient to be in PEA. ACLS initiated on the field. Patient did receive epinephrine with ROSC. Patient was brought to the emergency department where patient was intubated and subsequently admitted to the intensive care unit Objective Data Objective Data Vital Signs: Vital Signs Temp Pulse Resp BP Pulse Ox 97 F L 64 14 127/82 H 98 04/16/21 00:00 04/16/21 07:02 04/16/21 07:02 04/16/21 07:00 04/16/21 07:00 Oxygen Flow Rate (L/min) 15 Oxygen Delivery Method Mechanical Ventilator Weight: 129.8 kg Body Mass Index (BMI) 42.7 Intake & Output: Intake and Output for Last 24 Hours 04/14/21 04/15/21 04/16/21 23:59 23:59 23:59 Intake Total 81.78 / 91.01 350.31 / 350.31 Output Total 1150 / 1150 400 / 400 Balance -1068.22 / -1058.99 -49.69 / -49.69 Lab / Micro Data Result Diagrams: 04/16/21 05:30 04/16/21 05:30 Labs: Laboratory Results - last 24 hr 04/15/21 19:22: B-Natriuretic Peptide 206.0 H 04/15/21 19:30: WBC 16.2 H, RBC 3.11 L, Hgb 9.5 L, Hct 32.4 L, MCV 104.2 H, MCH 30.5, MCHC 29.3 L, RDW Std Deviation 50.1 H, RDW Coeff of Immanuel 13.1, Plt Count 394, MPV 10.6, Immature Gran % (Auto) 2.000 H, Neut % (Auto) 70.2 H, Lymph % (Auto) 19.3, [place] % (Auto) 7.3, Eos % (Auto) 0.8, Baso % (Auto) 0.4, Absolute Neuts (auto) 11.4 H, Absolute Lymphs (auto) 3.13, Nucleated RBC % 0 04/15/21 19:30: PT 13.6, INR 1.1, APTT 32.3 04/15/21 19:30: Sodium 138, Potassium 4.6, Chloride 110 H, Carbon Dioxide 24.0, Anion Gap 4 L, BUN 22 H, Creatinine 1.48 H, Estim Creat Clear Calc 44.89, Est GFR (MDRD) Af Amer 47 L, Est GFR (MDRD) Non-Af 39 L, BUN/Creatinine Ratio 14.9, Glucose 161 H, Calcium 9.1, Total Bilirubin 0.20, AST 33, ALT 36, Alkaline Phosphatase 146 H, Troponin I High Sens 75 H, Total Protein 8.2, Albumin 3.5, Globulin 4.7 H, Albumin/Globulin Ratio 0.7 L 04/15/21 19:30: Lactic Acid 1.7 04/15/21 19:30: Total Creatine Kinase 88 04/15/21 19:30: Phosphorus 5.3 H, Magnesium 2.1 04/15/21 19:40: Urine Color Yellow, Urine Clarity Sl. Cloudy, Urine pH 6.0, Ur Specific [place] 1.015, Urine Protein 500 H, Urine Glucose (UA) 50 H, Urine Ketones Negative, Urine Occult Blood 150 H, Urine Nitrite Negative, Urine Bilirubin Negative, Urine Urobilinogen Normal, Ur Leukocyte Esterase Negative, Urine RBC 10-25 SEEN, Urine WBC 0 SEEN, Ur Squamous Epith Cells 0-5 SEEN, Urine Bacteria 0 SEEN, Urine Mucus 0 SEEN 04/15/21 19:40: Urine Opiates Screen NEGATIVE, Urine Methadone Screen NEGATIVE, Ur Barbiturates Screen NEGATIVE, Ur Phencyclidine Scrn NEGATIVE, Ur Amphetamines Screen NEGATIVE, U Methamphetamin-MDMA NEGATIVE, U Benzodiazepines Scrn NEGATIVE, Urine Cocaine Screen NEGATIVE, U Cannabinoids Screen NEGATIVE, Ur Drug Screen Comment 04/15/21 20:55: COVID-19 (GIL) Negative 04/16/21 00:25: POC Glucose 137 H 04/16/21 05:30: Procalcitonin < 0.01 04/16/21 05:30: WBC 8.8, RBC 3.02 L, Hgb 9.1 L, Hct 31.5 L, MCV 104.3 H, MCH 30.1, MCHC 28.9 L, RDW Std Deviation 49.7 H, RDW Coeff of Immanuel 13.2, Plt Count 294, MPV 10.4, Immature Gran % (Auto) 0.500, Neut % (Auto) 68.1, Lymph % (Auto) 22.9, [place] % (Auto) 7.6, Eos % (Auto) 0.6, Baso % (Auto) 0.3, Absolute Neuts (auto) 6.0, Absolute Lymphs (auto) 2.02, Nucleated RBC % 0 04/16/21 05:30: Sodium 138, Potassium 4.0, Chloride 111 H, Carbon Dioxide 22.0, Anion Gap 5, BUN 17, Creatinine 0.87, Estim Creat Clear Calc 76.36, Est GFR (MDRD) Af Amer 87, Est GFR (MDRD) Non-Af 72, BUN/Creatinine Ratio 19.6, Glucose 91, Calcium 8.4 L, Total Bilirubin 0.20, AST 95 H, ALT 79 H, Alkaline Phosphatase 176 H, Total Protein 7.2, Albumin 3.0 L, Globulin 4.2, Albumin/Globulin Ratio 0.7 L 04/16/21 05:30: TSH 0.68 04/16/21 08:05: Troponin I High Sens 97 H Micro: Microbiology 04/15/21 20:55 Mucosa - Nose Respiratory Panel (PCR) - Final ABG Data ABG results: ABG 04/15/21 04/16/21 21:01 06:39 Specimen Type ART ART Sample Site L Brach L Radial pH 7.19 L* 7.22 L Bicarbonate Actual 20.0 L 20.9 L Total CO2 22 23 Base Excess -8 L -7 L O2 Saturation 94 L 87 L O2 % 40 30 ABG pCO2 52.6 H 50.7 H ABG pO2 86 64 L Олег Test Positive Positive Respiration Rate 14 14 O2 Delivery Device Adult Vent Adult Vent Vent Mode AC AC Tidal Volume 450 400 POC PEEP 5 5 Crit Call To/Read Back Yes Blood Gas Notified Whom Rich Radiography Diagnostic Testing: Radiology Impression Brain CT 04/15/21 19:22 IMPRESSION: Normal unenhanced CT scan of the brain. There is continued concern, MRI is recommended Electronically Signed: Reggie Forte DO at 20:46 EDT Tel [phone], Service support , Chest CTA 04/15/21 19:22 IMPRESSION: 1. No evidence of pulmonary embolus. 2. No aortic dissection or aneurysm. 3. Mild cardiomegaly with prominent pulmonary veins and consolidation in the dependent lungs. Question mild vascular congestion and CHF. Electronically Signed: Reggie Forte DO at 20:54 EDT Tel [phone], Service support , Chest X-Ray 04/15/21 19:23 IMPRESSION: Endotracheal tube in the right mainstem bronchus with volume loss left lung and mediastinal shift. Should be pulled back approximately 3 cm. Endotracheal tube as described. N.B. : The above Results were Read Back by Reggie Forte DO to Harlan Rich MD, and understanding confirmed on 04/15/2021 20:38:52 (ET). Electronically Signed: Reggie Forte DO at 20:40 EDT Tel [phone], Service support , ADDENDUM: 04/15/212046 IMPRESSION: Endotracheal tube in the right mainstem bronchus with volume loss left lung and mediastinal shift. Should be pulled back approximately 3 cm. Endotracheal tube as described. N.B. : The above Results were Read Back by Reggie Forte DO to Harlan Rich MD, and understanding confirmed on 04/15/2021 20:38:52 (ET). Electronically Signed: Reggie Forte DO at 20:40 EDT Tel [phone], Service support , KUB X-Ray 04/15/21 19:23 IMPRESSION: NG tube is present with tip in the stomach. Opacification of the left lung base could represent a pleural effusion versus edema and/or infection. Electronically Signed: Marcus Goode MD at 20:11 EDT Tel , Service support , Chest X-Ray 04/16/21 05:20 IMPRESSION: 1. Interval retraction of the endotracheal tube with the tip approximately 3 cm above the basilio. 2. Nasogastric tube which is unchanged. 3. Improved left lower lobe atelectasis. Electronically Signed: Javier Adams MD at 7:27 EDT Tel , Service support , Physical Exam Narrative GENERAL: Patient on the vent but awake HEENT: Atraumatic; EYES; Anicteric, Normal Conjunctiva NECK; supple, normal thyroid, RESPIRATORY: Diminished to auscultation CARDIOVASCULAR: Regular S1 S2, GI: soft, normoactive bowel sounds, : No Renal angle tenderness; EXTREMITIES: No edema, no clubbing, MUSCULOSKELETAL: no muscle waisting NEURO: Awake; awake on the vent SKIN: An area of erythema around the incision site of patient's left breast PSYCH; on the vent unable to assess Assessment & Plan Assessment/Plan (1) Cardiopulmonary arrest with successful resuscitation: (2) Acute respiratory failure with hypoxia and hypercapnia: (3) Congestive heart failure: QUALIFIERS: Heart failure chronicity: acute Heart failure type: unspecified Qualified Code(s): I50.9 - Heart failure, unspecified (4) Acidosis, lactic: PLAN: Patient is a 55-year-old lady who was brought to the emergency department after he was found unresponsive for an undetermined duration. EMS found patient to be in PEA. ACLS initiated on the field. Patient did receive epinephrine with ROSC. Patient was brought to the emergency department where patient was intubated and subsequently admitted to the intensive care unit 1. Cardiopulmonary arrest ?Suspected to be secondary to acute hypoxic and hypercapnic respiratory failure. Patient was successfully resuscitated using the ACLS protocol with ROSC 2. Acute hypoxic and hypercapnic respiratory failure -Following cardiopulmonary arrest. Patient was intubated and admitted to the intensive care unit. Consult placed to coating inspector for vent management deferred 3. Acute congestive heart failure ?Suspected to be secondary to congestive heart failure with preserved ejection fraction. Patient is on both Lasix as well as Aldactone continue to repeat echo ordered which demonstrated EF of 55% 4. Morbid obesity ?With BMI of 42.3 with plans to genetic counselor patient on weight reduction following her intubation 5. Obstructive sleep apnea ?On PAP therapy 6. Chronic pain syndrome ?Per history. Patient was on oxycodone 5 mg as needed prior to admission 7. History of DVT/PE ?Patient is on Lovenox advance diet continue 8. Depression with anxiety ?Patient is on venlafaxine at home plan is to resume once of the veins 9. GERD ?On PPI 10. Chronic hypoxic respiratory failure -secondary to overlap syndrome (COPD and asthma) 11. Hypertension - Blood pressure controlled, home medications continued with dose adjustment as needed 12. Dyslipidemia -Patient is on statin therapy, continued at home dose 13. Seizure disorder ?Patient is on Keppra 14. History of CVA -with residual right-sided weakness 15. 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 Suspected cellulitis ?Involving the left breast at the site of her incision. Patient started on broad-spectrum antibiotic therapy 17. DVT prophylaxis ?On rivaroxaban Charges/Coding Visit Charges Inpatient E&M: [id number] [facility] Hosp L3
[2021-04-16] MEDS: Lansoprazole 15 MG Capsule.DR 30 MG GT ×2 (10:08→23:10)
[2021-04-16] MEDS: Clopidogrel Bisulfate 75 MG Tablet GT (10:08)
[2021-04-16] MEDS: levETIRAcetam Oral Solution 500 MG/5 ML GT ×2 (10:08→23:11)
[2021-04-16] MEDS: Rivaroxaban 20 MG Tablet GT (10:09)
[2021-04-16] MEDS: clonazePAM 0.5 MG Tablet GT ×2 (10:13→23:11)
[2021-04-16 10:52] LABS: Troponin-I HS 97 pg/mL (3.0-54.0)
[2021-04-16 11:16] LABS: Bedside Glucose 102 mg/dL (70-110)
[2021-04-16 11:32] LABS: M R Staph aureus DNA By PCR Negative (Negative); Probe Check PASS; Specimen Processing Control PASS
[2021-04-16] MEDS: Propofol 10MG/Ml 1,000 MG/100 ML Bottle 19.7 MG CONT INF ×2 (12:40→23:30)
--- NOTE | 2021-04-16 13:07 | PCS.PANDOC ---
PANDEMIC DOCUMENTATION INITIATED: Date: 03/07/2021 Time: 190
[2021-04-16 14:44] LABS: Troponin-I HS 89 pg/mL (3.0-54.0)
[2021-04-16 17:56] LABS: Bedside Glucose 90 mg/dL (70-110)
[2021-04-16] MEDS: Propofol 10MG/Ml 1,000 MG/100 ML Bottle 15.8 MG CONT INF (18:00)
[2021-04-16] MEDS: Atorvastatin Calcium 80 MG Tablet GT (23:09)
[2021-04-16 23:41] LABS: Bedside Glucose 123 mg/dL (70-110)
[2021-04-17] VITALS (33 sets, daily range): BP systolic 87–159; BP diastolic 53–72; PULSE 14–88; RESP 14–16; TEMP 36.3–36.6; O2SAT 90–97
[2021-04-17 03:44] LABS: Absolute Lymphocyte Count 2.55 X10^3/uL (0.83-4.51); Basophil# 0.04 X10^3/uL; Basophil% 0.4 % (0-1); Eosinophil# 0.12 X10^3/uL; Eosinophils% 1.1 % (0-5); Hematocrit 28.4 % (37-47); Hemoglobin 8.9 g/dL (12.0-15.0); Lymphocyte # 2.55 X10^3/ul (0.83-4.51); Lymphocyte % 24.1 % (19-41); Mean Corp Hgb Conc 31.3 g/dL (32-36); Mean Platelet Vol. 9.8 fl (6.2-12.0); Monocyte# 0.88 X10^3/uL; Monocyte% 8.3 % (0-10); NRBC Flagged by Analyzer 0.2 % (0-5); Neutrophil # 6.95 X10^3/uL (2.7-7.7); Neutrophil % 65.8 % (47-70); Platelet Count 288 K/mm3 (150-450); RBC Distribution Width CV 13.2 % (11.6-14.6); Red Blood Count 2.87 M/mm3 (4.2-5.4); White Blood Count 10.6 K/mm3 (4.4-11.0)
[2021-04-17 04:00] LABS: Anion Gap 10 (5-15); BUN 19 mg/dL (7-18); BUN/Creat Ratio 19.4 RATIO (10-20); Calcium,Total 8.2 mg/dL (8.5-10.1); Chloride 104 mmol/L (98-107); Creatinine, Serum 0.98 mg/dL (0.55-1.02); EST Glomerular Filtration Rate 63 mL/min (>60); Est Glom Filt Rate - Afr Amer 76 mL/min (>60); Estimated Creatinine Clearance 67.79 ml/min; Glucose 107 mg/dL (74-106); Potassium 3.6 mmol/L (3.5-5.1); Sodium Level 137 mmol/L (136-145)
[2021-04-17] MEDS: Propofol 10MG/Ml 1,000 MG/100 ML Bottle 11.8 MG CONT INF (04:36)
--- NOTE | 2021-04-17 05:47 | PN.CC_ITS ---
Assessment & Plan Assessment/Plan (1) Cardiopulmonary arrest with successful resuscitation: PLAN: RECOMMENDATIONS: 1. Continue patient on assist control mode of mechanical ventilation. 2. Wean FiO2 and PEEP as tolerated. 3. Continue empiric antimicrobials. 4. Continue current sedation regimen. 5. Start Precedex and wean from propofol to facilitate weaning from invasive mechanical ventilatory support. 6. Continue appropriate ICU prophylaxis. IMPRESSIONS: 1. Acute combined respiratory failure status post cardiac arrest Unclear precipitating etiology for the patient's arrest. She does not have a known prior cardiac history. Her prior pulmonary work-up several years ago revealed evidence of a restrictive ventilatory impairment, despite the patient's prior tobacco abuse history. She does have a known history of sleep apnea and most likely has alveolar hypoventilation as a consequence of her morbid obesity as well. The patient was successfully resuscitated. She does appear to have intact neurological function. We will continue to provide supportive measures including invasive mechanical ventilation. Wean FiO2 and PEEP as tolerated. Given the patient's CTA chest showed some basilar consolidations, empiric antim icrobials will be continued. 2. Acute kidney injury Resolved. Likely prerenal in etiology and related to #1. Anticipate improvement with stabilization of hemodynamics and oxygenation status. Continue to monitor urine output. No current indication for renal replacement therapy. 3. History of DVT/PE Continue systemic anticoagulation as ordered. 4. Recent diagnosis of breast cancer/anemia/chronic pain syndrome/hypertension/ seizure disorder/morbid obesity/STEPHANIE Complicates care, management, recovery and prognosis. Continue home medications as indicated. Recommend reinitiation of Pap therapy once extubated. TIME: 35 minutes of critical care time, independent of procedures, was spent addressing the patient's acute combined respiratory failure status post cardiac arrest, acute kidney injury, history of DVT/PE, review of all data and collaboration with the care team. ([id number]) Subjective Subjective The patient was seen and examined at the bedside this morning. Events from the last 24 hours have been reviewed. The patient is currently afebrile, hemodynamically stable and maintaining appropriate oxygen saturations on assist control mode mechanical ventilation with an FiO2 requirement of 30%. The patient failed her spontaneous awakening trial as she became agitated and subsequently desaturated. She is currently documented to be overall net -1.7 L for the hospital admission. She is currently sedated on propofol and fentanyl. She remains on empiric antimicrobials, along with twice daily IV Lasix. Objective Data Objective Data The patient's most recent lab work, culture data and imaging studies have all been personally reviewed. Breast ultrasound revealed findings compatible with seroma at the area of her incision/lumpectomy. Surface echocardiogram revealed normal LV size and function with an ejection fraction of 55%. The RV was noted to be dilated with systolic dysfunction. Respiratory viral panel was negative. Sputum culture is pending. Covid testing was negative. Vital Signs: Vital Signs Temp Pulse Resp BP Pulse Ox 97.3 F L 83 14 116/55 L 92 04/17/21 00:00 04/17/21 05:00 04/17/21 05:00 04/17/21 05:00 04/17/21 05:00 Oxygen Flow Rate (L/min) 15 Oxygen Delivery Method Mechanical Ventilator Weight: 129.8 kg Body Mass Index (BMI) 42.7 Intake & Output: Intake and Output for Last 24 Hours 04/15/21 04/16/21 04/17/21 23:59 23:59 23:59 Intake Total 81.78 / 91.01 1621.80 / 1646.65 452.38 / 452.38 Output Total 1150 / 1150 2050 / 2800 750 / 750 Balance -1068.22 / -1058.99 -428.20 / -1153.35 -297.62 / -297.62 Lab / Micro Data Attestation: I reviewed the patient's lab results. Result Diagrams: 04/17/21 03:30 04/17/21 03:30 Labs: Laboratory Results - last 24 hr 04/15/21 23:30: MRSA (PCR) Negative 04/16/21 05:30: Procalcitonin < 0.01 04/16/21 05:30: WBC 8.8, RBC 3.02 L, Hgb 9.1 L, Hct 31.5 L, MCV 104.3 H, MCH 30.1, MCHC 28.9 L, RDW Std Deviation 49.7 H, RDW Coeff of Immanuel 13.2, Plt Count 294, MPV 10.4, Immature Gran % (Auto) 0.500, Neut % (Auto) 68.1, Lymph % (Auto) 22.9, [place] % (Auto) 7.6, Eos % (Auto) 0.6, Baso % (Auto) 0.3, Absolute Neuts (auto) 6.0, Absolute Lymphs (auto) 2.02, Nucleated RBC % 0 04/16/21 05:30: Sodium 138, Potassium 4.0, Chloride 111 H, Carbon Dioxide 22.0, Anion Gap 5, BUN 17, Creatinine 0.87, Estim Creat Clear Calc 76.36, Est GFR (MDRD) Af Amer 87, Est GFR (MDRD) Non-Af 72, BUN/Creatinine Ratio 19.6, Glucose 91, Calcium 8.4 L, Total Bilirubin 0.20, AST 95 H, ALT 79 H, Alkaline Phosphatase 176 H, Total Protein 7.2, Albumin 3.0 L, Globulin 4.2, Albumin/Globulin Ratio 0.7 L 04/16/21 05:30: TSH 0.68 04/16/21 08:05: Troponin I High Sens 97 H 04/16/21 10:15: Troponin I High Sens 97 H 04/16/21 11:10: POC Glucose 102 04/16/21 14:15: Troponin I High Sens 89 H 04/16/21 17:49: POC Glucose 90 04/16/21 23:06: POC Glucose 123 H 04/17/21 03:30: WBC 10.6, RBC 2.87 L, Hgb 8.9 L, Hct 28.4 L, MCV 99.0 D, MCH 31.0, MCHC 31.3 L D, RDW Std Deviation 47.0 H, RDW Coeff of Immanuel 13.2, Plt Count 288, MPV 9.8, Immature Gran % (Auto) 0.300, Neut % (Auto) 65.8, Lymph % (Auto) 24.1, [place] % (Auto) 8.3, Eos % (Auto) 1.1, Baso % (Auto) 0.4, Absolute Neuts (auto) 7.0, Absolute Lymphs (auto) 2.55, Nucleated RBC % 0.2 04/17/21 03:30: Sodium 137, Potassium 3.6, Chloride 104, Carbon Dioxide 23.0, Anion Gap 10, BUN 19 H, Creatinine 0.98, Estim Creat Clear Calc 67.79, Est GFR (MDRD) Af Amer 76, Est GFR (MDRD) Non-Af 63, BUN/Creatinine Ratio 19.4, Glucose 107 H, Calcium 8.2 L Micro: Microbiology 04/16/21 09:49 Sputum, Induced/[place] Gram Stain - Final 04/15/21 20:55 Mucosa - Nose Respiratory Panel (PCR) - Final ABG Data ABG results: ABG 04/16/21 06:39 Specimen Type ART Sample Site L Radial pH 7.22 L Bicarbonate Actual 20.9 L Total CO2 23 Base Excess -7 L O2 Saturation 87 L O2 % 30 ABG pCO2 50.7 H ABG pO2 64 L Олег Test Positive Respiration Rate 14 O2 Delivery Device Adult Vent Vent Mode AC Tidal Volume 400 POC PEEP 5 Radiography Diagnostic Testing: Radiology Impression Echocardiogram 04/15/21 22:34 Interpretation Summary The study was technically difficult. Contrast injection was performed. Based upon the 2D echocardiographic and contrast enhanced images obtained there appears to be grossly normal left ventricular size, wall motion, and systolic function. The estimated ejection fraction is 55 %. The right ventricle is not well visualized, however, based upon the 2D echocardiographic and contrast enhanced images obtained there appears to be right ventricular dilatation and systolic dysfunction. Trivial mitral valve insufficiency. Trivial tricuspid valve insufficiency. Mildly dilated aortic root. Unable to estimate RV systolic pressure/pulmonary artery pressure due to technically difficult study. Diastolic function is indeterminate. Ordering Physician: Aleksandra Hurley Referring Physician: Alvarez Montanez M.D. Performed By: Salma Flores RDCS Chest X-Ray 04/16/21 05:20 IMPRESSION: 1. Interval retraction of the endotracheal tube with the tip approximately 3 cm above the basilio. 2. Nasogastric tube which is unchanged. 3. Improved left lower lobe atelectasis. Electronically Signed: Javier Adams MD at 7:27 EDT Tel , Service support , Breast Ultrasound 04/16/21 05:55 IMPRESSION: Findings compatible with seroma. Seroma should be amenable to percutaneous ultrasound aspiration. ASSESSMENT CATEGORY: Seroma as described. Electronically Signed: Addison Hubbard MD at 14:15 EDT , Service support , Physical Exam Const no apparent distress General Appearance: intubated and patient mechanically ventilated Nutritional Appearance: morbidly obese HEENT normocephalic and head/scalp atraumatic Mouth: endotracheal tube in place and OG tube in place Eyes PERRL and conjunctivae normal Neck supple General: trachea midline Chest inspection of chest normal Resp Auscultation: diminished lung sounds; Negative for rales, rhonchi or wheezes Cardio regular rate and regular rhythm GI normal to inspection, nondistended, normoactive bowel sounds Extremity no clubbing, cyanosis or edema Skin no rashes or lesions noted Neuro Sensorium / Orientation: sedated on vent Charges/Coding Procedures Hospitalists Procedures: 88444 Critial Care 1st Hr
--- NOTE | 2021-04-17 06:14 | NURSING ---
This RN was assisting with a code on the unit when David Deluna RN hung a new bottle of Propofol. Titrations could not be made on the SEP and are as follows: 0300 15 mcg/kg/min 0315 20 mcg/kg/min 0330 25 mcg/kg/min
[2021-04-17] MEDS: Ipratropium/Albuterol Sulfate 3 ML AMPUL.NEB INHALATION ×3 (07:05→18:52)
--- NOTE | 2021-04-17 07:25 | PCM.PN.HOSP ---
Subjective Subjective Patient seen sedated on the vent apparently did fail her spontaneous breathing trial. Plan is to obtain bilateral venous duplex Objective Data Objective Data Vital Signs: Vital Signs Temp Pulse Resp BP Pulse Ox 97.3 F L 76 14 116/55 L 91 04/17/21 00:00 04/17/21 07:05 04/17/21 07:05 04/17/21 05:00 04/17/21 07:05 Oxygen Flow Rate (L/min) 15 Oxygen Delivery Method Mechanical Ventilator Weight: 129.8 kg Body Mass Index (BMI) 42.7 Intake & Output: Intake and Output for Last 24 Hours 04/15/21 04/16/21 04/17/21 23:59 23:59 23:59 Intake Total 81.78 / 91.01 1621.80 / 1646.65 519.93 / 519.93 Output Total 1150 / 1150 2050 / 2800 875 / 875 Balance -1068.22 / -1058.99 -428.20 / -1153.35 -355.07 / -355.07 Lab / Micro Data Result Diagrams: 04/17/21 03:30 04/17/21 03:30 Labs: Laboratory Results - last 24 hr 04/15/21 23:30: MRSA (PCR) Negative 04/16/21 05:30: Procalcitonin < 0.01 04/16/21 08:05: Troponin I High Sens 97 H 04/16/21 10:15: Troponin I High Sens 97 H 04/16/21 11:10: POC Glucose 102 04/16/21 14:15: Troponin I High Sens 89 H 04/16/21 17:49: POC Glucose 90 04/16/21 23:06: POC Glucose 123 H 04/17/21 03:30: WBC 10.6, RBC 2.87 L, Hgb 8.9 L, Hct 28.4 L, MCV 99.0 D, MCH 31.0, MCHC 31.3 L D, RDW Std Deviation 47.0 H, RDW Coeff of Immanuel 13.2, Plt Count 288, MPV 9.8, Immature Gran % (Auto) 0.300, Neut % (Auto) 65.8, Lymph % (Auto) 24.1, [place] % (Auto) 8.3, Eos % (Auto) 1.1, Baso % (Auto) 0.4, Absolute Neuts (auto) 7.0, Absolute Lymphs (auto) 2.55, Nucleated RBC % 0.2 04/17/21 03:30: Sodium 137, Potassium 3.6, Chloride 104, Carbon Dioxide 23.0, Anion Gap 10, BUN 19 H, Creatinine 0.98, Estim Creat Clear Calc 67.79, Est GFR (MDRD) Af Amer 76, Est GFR (MDRD) Non-Af 63, BUN/Creatinine Ratio 19.4, Glucose 107 H, Calcium 8.2 L Micro: Microbiology 04/16/21 09:49 Sputum, Induced/Lukens Gram Stain - Final 04/15/21 20:55 Mucosa - Nose Respiratory Panel (PCR) - Final Radiography Diagnostic Testing: Radiology Impression Echocardiogram 04/15/21 22:34 Interpretation Summary The study was technically difficult. Contrast injection was performed. Based upon the 2D echocardiographic and contrast enhanced images obtained there appears to be grossly normal left ventricular size, wall motion, and systolic function. The estimated ejection fraction is 55 %. The right ventricle is not well visualized, however, based upon the 2D echocardiographic and contrast enhanced images obtained there appears to be right ventricular dilatation and systolic dysfunction. Trivial mitral valve insufficiency. Trivial tricuspid valve insufficiency. Mildly dilated aortic root. Unable to estimate RV systolic pressure/pulmonary artery pressure due to technically difficult study. Diastolic function is indeterminate. Ordering Physician: Aleksandra Hurley Referring Physician: Alvarez Montanez M.D. Performed By: Salma Flores RDCS Chest X-Ray 04/16/21 05:20 IMPRESSION: 1. Interval retraction of the endotracheal tube with the tip approximately 3 cm above the basilio. 2. Nasogastric tube which is unchanged. 3. Improved left lower lobe atelectasis. Electronically Signed: Javier Adams MD at 7:27 EDT Tel , Service support , Breast Ultrasound 04/16/21 05:55 IMPRESSION: Findings compatible with seroma. Seroma should be amenable to percutaneous ultrasound aspiration. ASSESSMENT CATEGORY: Seroma as described. Electronically Signed: Addison Hubbard MD at 14:15 EDT , Service support , Physical Exam Narrative GENERAL: Sedated on the vent HEENT: Atraumatic; EYES; Anicteric, Normal Conjunctiva NECK; supple, normal thyroid, RESPIRATORY: Diminished to auscultation CARDIOVASCULAR: Regular S1 S2, GI: soft, normoactive bowel sounds, : No Renal angle tenderness; EXTREMITIES: No edema, no clubbing, MUSCULOSKELETAL: no muscle waisting NEURO: Sedated on the vent SKIN: An area of erythema around the incision site of patient's left breast PSYCH; on the vent unable to assess Assessment & Plan Assessment/Plan (1) Cardiopulmonary arrest with successful resuscitation: (2) Acute respiratory failure with hypoxia and hypercapnia: (3) Congestive heart failure: QUALIFIERS: Heart failure chronicity: acute Heart failure type: unspecified Qualified Code(s): I50.9 - Heart failure, unspecified (4) Acidosis, lactic: PLAN: Patient is a 55-year-old lady who was brought to the emergency department after he was found unresponsive for an undetermined duration. EMS found patient to be in PEA. ACLS initiated on the field. Patient did receive epinephrine with ROSC. Patient was brought to the emergency department where patient was intubated and subsequently admitted to the intensive care unit 1. Cardiopulmonary arrest ?Suspected to be secondary to acute hypoxic and hypercapnic respiratory failure. Patient was successfully resuscitated using the ACLS protocol with ROSC 2. Acute hypoxic and hypercapnic respiratory failure -Following cardiopulmonary arrest. Patient was intubated and admitted to the intensive care unit. Consult placed to supervisor hard candy for vent management deferred -04/17/2021; patient apparently failed her spontaneous breathing trial remains on the vent 3. Acute congestive heart failure ?Suspected to be secondary to congestive heart failure with preserved ejection fraction. Patient is on both Lasix as well as Aldactone continue to repeat echo ordered which demonstrated EF of 55% -04/17/2021; case discussed with Dr. Bagley with cardiology plan is to obtain bilateral venous duplex in view of findings and echo regarding right ventricle 4. Morbid obesity ?With BMI of 42.3 with plans to estate planning counselor patient on weight reduction following her intubation 5. Obstructive sleep apnea ?On PAP therapy 6. Chronic pain syndrome ?Per history. Patient was on oxycodone 5 mg as needed prior to admission 7. History of DVT/PE ?Patient is on Lovenox advance diet continue 8. Depression with anxiety ?Patient is on venlafaxine at home plan is to resume once of the veins 9. GERD ?On PPI 10. Chronic hypoxic respiratory failure -secondary to overlap syndrome (COPD and asthma) 11. Hypertension - Blood pressure controlled, home medications continued with dose adjustment as needed 12. Dyslipidemia -Patient is on statin therapy, continued at home dose 13. Seizure disorder ?Patient is on Keppra 14. History of CVA -with residual right-sided weakness 15. 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 Suspected cellulitis ?Involving the left breast at the site of her incision. Patient started on broad-spectrum antibiotic therapy 17. DVT prophylaxis ?On rivaroxaban Charges/Coding Visit Charges Inpatient E&M: 39113 [facility] L3
[2021-04-17 07:46] LABS: Bedside Glucose 112 mg/dL (70-110)
[2021-04-17] MEDS: Chlorhexidine 15 ML PO (08:16)
[2021-04-17] MEDS: levETIRAcetam Oral Solution 500 MG/5 ML GT ×2 (08:17→22:31)
[2021-04-17] MEDS: Furosemide 40 MG/4 ML Vial IV ×2 (08:20→18:54)
[2021-04-17] MEDS: Lansoprazole 15 MG Capsule.DR 30 MG GT ×2 (08:21→22:31)
[2021-04-17] MEDS: Magnesium Chloride 64 MG Delay Rel.Tablet PO (08:21)
[2021-04-17] MEDS: Clopidogrel Bisulfate 75 MG Tablet GT (08:21)
[2021-04-17] MEDS: Rivaroxaban 20 MG Tablet GT (08:23)
[2021-04-17] MEDS: clonazePAM 0.5 MG Tablet GT ×2 (08:26→22:31)
[2021-04-17] MEDS: Venlafaxine XR 75 MG Capsule PO (08:28)
--- NOTE | 2021-04-17 10:30 | VDLE_ITS ---
Reason For Study: elevated D-dimer RIGHT LEFT GSV is normal. GSV is normal. CFV is compressible, spontaneous, phasic, CFV is compressible, spontaneous, phasic, competent and demonstrates normal competent, and demonstrates normal augmentation. augmentation. FV is compressible, spontaneous, phasic, FV is compressible, spontaneous, phasic, competent and demonstrates normal competent and demonstrates normal augmentation. augmentation. Unable to visualize the right popliteal POP V is compressible, spontaneous, phasic, vein, T/P trunk and peroneal vein. competent and demonstrates normal Procedure augmentation. This is a venous duplex using B-mode, color PTV is dilated and noncompressible and flow and spectral Doppler. extends to the T/P trunk. Exam performed portable in ICU/CCU. LT PerV is compressible. The study was technically difficult. The study was technically limited. A preliminary report was called and/or faxed to Dr. Narayanan @ 2:15 pm. VL/Venous Duplex US - Ousmane Extrem Interpretation Summary No evidence for acute deep vein thrombosis right lower extremity but unable to visualize the right popliteal, tibioperoneal trunk, or peroneal veins Acute deep venous thrombosis left posterior tibial vein extending into the tibi operoneal trunk. Patent and compressible bilateral great saphenous veins Technically difficult limited examination. Ordering Physician: Alexander Ye Referring Physician: Alvarez Montanez Performed By: Janeth Llanes, OTTONIEL, RVT
--- NOTE | 2021-04-17 10:58 | PCM.PN.CARD ---
Subjective Subjective The patient failed her weaning trial this AM. Thus, she remains mechanically intubated / ventilated. Objective Data Vital Signs: Vital Signs Temp Pulse Resp BP Pulse Ox 97.3 F L 71 14 122/58 H 90 04/17/21 00:00 04/17/21 08:57 04/17/21 08:57 04/17/21 07:00 04/17/21 08:57 Oxygen Flow Rate (L/min) 15 Oxygen Delivery Method Mechanical Ventilator Weight: 286 lb 2.56 oz Body Mass Index (BMI) 42.7 Intake & Output: Intake and Output for Last 24 Hours 04/15/21 04/16/21 04/17/21 23:59 23:59 23:59 Intake Total 81.78 / 91.01 1621.80 / 1646.65 589.80 / 589.80 Output Total 1150 / 1150 2050 / 2800 875 / 875 Balance -1068.22 / -1058.99 -428.20 / -1153.35 -285.20 / -285.20 Lab / Micro Data Result Diagrams: 04/17/21 03:30 04/17/21 03:30 Labs: Laboratory Results - last 24 hr 04/15/21 23:30: MRSA (PCR) Negative 04/16/21 11:10: POC Glucose 102 04/16/21 14:15: Troponin I High Sens 89 H 04/16/21 17:49: POC Glucose 90 04/16/21 23:06: POC Glucose 123 H 04/17/21 03:30: WBC 10.6, RBC 2.87 L, Hgb 8.9 L, Hct 28.4 L, MCV 99.0 D, MCH 31.0, MCHC 31.3 L D, RDW Std Deviation 47.0 H, RDW Coeff of Immanuel 13.2, Plt Count 288, MPV 9.8, Immature Gran % (Auto) 0.300, Neut % (Auto) 65.8, Lymph % (Auto) 24.1, [place] % (Auto) 8.3, Eos % (Auto) 1.1, Baso % (Auto) 0.4, Absolute Neuts (auto) 7.0, Absolute Lymphs (auto) 2.55, Nucleated RBC % 0.2 04/17/21 03:30: Sodium 137, Potassium 3.6, Chloride 104, Carbon Dioxide 23.0, Anion Gap 10, BUN 19 H, Creatinine 0.98, Estim Creat Clear Calc 67.79, Est GFR (MDRD) Af Amer 76, Est GFR (MDRD) Non-Af 63, BUN/Creatinine Ratio 19.4, Glucose 107 H, Calcium 8.2 L 04/17/21 07:39: POC Glucose 112 H Micro: Microbiology 04/16/21 09:49 Sputum, Induced/Lukens Gram Stain - Final Cardiology Labs/Tests 04/17/21 03:30: WBC 10.6, RBC 2.87 L, Hgb 8.9 L, Hct 28.4 L, MCV 99.0 D, MCH 31.0, MCHC 31.3 L D, Plt Count 288, MPV 9.8, Immature Gran % (Auto) 0.300, Neut % (Auto) 65.8, Lymph % (Auto) 24.1, [place] % (Auto) 8.3, Eos % (Auto) 1.1, Baso % (Auto) 0.4, Absolute Neuts (auto) 7.0, Nucleated RBC % 0.2 04/17/21 03:30: Sodium 137, Potassium 3.6, Chloride 104, Carbon Dioxide 23.0, Anion Gap 10, BUN 19 H, Creatinine 0.98, Est GFR (MDRD) Af Amer 76, Est GFR (MDRD) Non-Af 63, BUN/Creatinine Ratio 19.4, Glucose 107 H, Calcium 8.2 L Rhythm: sinus rhythm Radiography Diagnostic Testing: Radiology Impression Echocardiogram 04/15/21 22:34 Interpretation Summary The study was technically difficult. Contrast injection was performed. Based upon the 2D echocardiographic and contrast enhanced images obtained there appears to be grossly normal left ventricular size, wall motion, and systolic function. The estimated ejection fraction is 55 %. The right ventricle is not well visualized, however, based upon the 2D echocardiographic and contrast enhanced images obtained there appears to be right ventricular dilatation and systolic dysfunction. Trivial mitral valve insufficiency. Trivial tricuspid valve insufficiency. Mildly dilated aortic root. Unable to estimate RV systolic pressure/pulmonary artery pressure due to technically difficult study. Diastolic function is indeterminate. Ordering Physician: Aleksandra Hurley Referring Physician: Alvarez Montanez M.D. Performed By: Salma Flores, XENIA Breast Ultrasound 04/16/21 05:55 IMPRESSION: Findings compatible with seroma. Seroma should be amenable to percutaneous ultrasound aspiration. ASSESSMENT CATEGORY: Seroma as described. Electronically Signed: Addison Hubbard MD at 14:15 EDT , Service support , Physical Exam Narrative The patient is currently in the ICU mechanically intubated and ventilated. HEENT normocephalic and head/scalp atraumatic Eyes PERRL Neck no JVD Resp Resp Narrative: Disseminated upper airway sound Cardio regular rate, regular rhythm, S1 normal heart sound and S2 normal heart sound GI normal to inspection, nondistended, normoactive bowel sounds Extremity no pedal edema Skin no rashes or lesions noted Assessment & Plan Assessment/Plan (1) Cardiopulmonary arrest with successful resuscitation: PLAN: The patient is reported as having a cardiopulmonary arrest with findings of PEA. The etiology is unclear at this time. The patient has been evaluated for underlying laboratory/metabolic abnormalities. She was found to be anemic. She had a toxicology screen which was reported as negative. The patient is not known to have underlying cardiovascular disease. Her cardiac enzymes have not demonstrated any significant change. Her cardiac rhythm remains sinus rhythm. Of note, with respect to her ECG, it demonstrated normal sinus rhythm with a possible prolonged QT interval. Based upon review of previous ECGs it does not appear that was commented upon in the past, however, it is unclear as to whether that may be a new diagnosis leading to a cardiac dysrhythmia leading to this event versus being a change secondary to her acute cardiopulmonary arrest event. Thus her ECGs will be followed. At the present time she will continue to be followed as noted above. Depending upon her clinical course she may or may not need additional cardiovascular diagnostic studies, etc.. With respect to this issue, her comorbidities and medications (including her anticoagulant therapy) would have to be taken into consideration. In the interim she will continue medical management/support as deemed appropriate. It appears based upon the patient's H&P she has been on medical therapy which has included antiplatelet agents such as clopidogrel/Plavix (reportedly for a history of TIA), beta-blockers, diuretics with furosemide and spironolactone, ARB's, lipid-lowering agents/statins, and anticoagulant agents such as rivaroxaban (reportedly for history of thromboembolic disease/pulmonary emboli). (2) Acute respiratory failure with hypoxia and hypercapnia: PLAN: The patient was reported as having an acute respiratory failure event. She is being evaluated by internal medicine and pulmonology/critical care medicine. She is currently mechanically intubated/ventilated. (3) Restrictive lung disease: PLAN: The patient is reported as having a history of underlying restrictive lung disease thought possibly secondary to her morbid obesity. She has been evaluated by pulmonology in the past. It is Unclear whether this is a contributing component to her cardiopulmonary arrest event. (4) LEIGH ANN (acute kidney injury): PLAN: The patient had what appeared to be an acute elevation of her creatinine level. This may be secondary to her previous event. Her renal function will need to be followed. (5) Abnormal cardiac enzyme level: PLAN: She does have abnormal cardiac enzymes. Again it is unclear whether this may represent a primary event versus a secondary event secondary to her report of hypoxemia requiring mechanical intubation/ventilation. Her cardiac enzymes will be followed as well as her other noninvasive studies such as ECGs. Her echocardiogram is as noted. Depending upon her clinical course she may or may not need additional cardiovascular diagnostic studies. (6) Diastolic dysfunction: PLAN: Based upon her previous transthoracic echocardiogram there was concerns of impaired relaxation on the left ventricle compatible with decreased diastolic compliance. According to her family members present there is been no report of any acute CHF events. She has been on medical management. (7) Anemia: PLAN: She does have anemia. The etiology is unclear at this time. She will need to be followed for any worsening anemia that would require additional evaluation and/or PRBC transfusion. (8) HLD (hyperlipidemia): QUALIFIERS: Hyperlipidemia type: unspecified Qualified Code(s): E78.5 - Hyperlipidemia, unspecified PLAN: She has a history of hyperlipidemia and appears she has been on lipid-lowering therapy. (9) Essential hypertension: PLAN: She has a history of hypertension and it appears she has been on multiple antihypertensive agents. (10) Breast infection: PLAN: She has undergone a diagnosis of breast carcinoma and a recent lumpectomy and a subsequent adverse event to her wound and subsequent infection. She has been on antibiotic biotic therapy. It is unclear whether this infectious disease process contributed to her acute cardiopulmonary arrest situation. She will need continued evaluation care per internal medicine and other specialties/subspecialties as needed such as surgery and infectious disease, etc. This finding has to be taken into consideration with respect to any additional cardiology procedures especially invasive procedures such as cardiac cath, etc.. (11) Morbid obesity: PLAN: Unfortunately she is morbidly obese. It appears that this has been a contributing factor to her underlying pulmonary disease findings in the past. Addt'l Comments The patients case was discussed with Dr. Ye and Dr. Christianson. Dr. Ye stated he is going to further evaluate for a possible thromboembolic event that may explain the patient PEA event with a lower extremity venous duplex study. This note was generated using a voice recognition system and there may be incorrect words, spelling or punctuation that were not noted when reviewing the office note prior to saving.
[2021-04-17] MEDS: Vital AF 1.2 Cal Liquid 1,000 ML 20 ML GT (12:15)
[2021-04-17 12:31] LABS: Bedside Glucose 131 mg/dL (70-110)
[2021-04-17 17:36] LABS: Bedside Glucose 145 mg/dL (70-110)
[2021-04-17] MEDS: 0.9% Saline Lock 10 ML Syringe IV (18:58)
[2021-04-17] MEDS: Atorvastatin Calcium 80 MG Tablet GT (22:32)
[2021-04-18] VITALS (30 sets, daily range): BP systolic 109–149; BP diastolic 53–120; PULSE 58–91; RESP 14–22; TEMP 35.9–36.8; O2SAT 93–98
[2021-04-18] MEDS: Chlorhexidine 15 ML PO (01:09)
[2021-04-18 01:16] LABS: Bedside Glucose 135 mg/dL (70-110)
--- NOTE | 2021-04-18 05:55 | EKG12_ITS ---
Test Reason : AM EKG Blood Pressure : / mmHG Vent. Rate : 062 BPM Atrial Rate : 062 BPM P-R Int : 176 ms QRS Dur : 106 ms QT Int : 466 ms P-R-T Axes : 057 000 013 degrees QTc Int : 472 ms Normal sinus rhythm Nonspecific T wave abnormality Prolonged QT Abnormal ECG When compared with ECG of 15-APR-2021 20:32, MANUAL COMPARISON REQUIRED, DATA IS UNCONFIRMED Confirmed by TOBY BATISTA, CHARLENE ([id number]), metropolitan editor SAUMYA PERAZA ([id number]) on 04/20/2021 11:06:01 AM Referred By: JARED Confirmed By:CHARLENE LUIS MD
[2021-04-18 06:06] LABS: Allen Test Positive; Base Excess -1 mmol/L (-2 to +2); Bicarbonate 24.4 mmol/L (22-26); Blood Gas Specimen Type ART; FI02 30; Mode CPAP/PS; O2 Delivery Device Adult Vent; PEEP 5; PO2 100 mmHG (75-100); PS 5; SITE L Brach; SO2 97 % (95-99); Total Carbon Dioxide 26 mmol/L; pCO2 43.9 mmHg (35-45); pH 7.35 (7.35-7.45)
[2021-04-18 06:33] LABS: Absolute Lymphocyte Count 1.77 X10^3/uL (0.83-4.51); Absolute Neutrophil Count 5.3 X10^3/uL (2.0-7.7); Basophil# 0.03 X10^3/uL; Basophil% 0.4 % (0-1); Eosinophil# 0.18 X10^3/uL; Eosinophils% 2.2 % (0-5); Hematocrit 26.6 % (37-47); Hemoglobin 8.3 g/dL (12.0-15.0); Lymphocyte # 1.77 X10^3/ul (0.83-4.51); Lymphocyte % 21.7 % (19-41); Mean Corp Hgb Conc 31.2 g/dL (32-36); Mean Corpuscular Hgb 30.6 pg (27.0-32.0); Mean Corpuscular Volume 98.2 fL (81-99); Mean Platelet Vol. 10.7 fl (6.2-12.0); Monocyte% 9.8 % (0-10); NRBC Flagged by Analyzer 0 % (0-5); Neutrophil # 5.33 X10^3/uL (2.7-7.7); Neutrophil % 65.5 % (47-70); Platelet Count 263 K/mm3 (150-450); RBC Distribution Width SD 46.3 fl (35.1-43.9); Red Blood Count 2.71 M/mm3 (4.2-5.4); White Blood Count 8.1 K/mm3 (4.4-11.0)
[2021-04-18 06:51] LABS: Anion Gap 9 (5-15); BUN 18 mg/dL (7-18); BUN/Creat Ratio 29.9 RATIO (10-20); Calcium,Total 8.2 mg/dL (8.5-10.1); Chloride 102 mmol/L (98-107); EST Glomerular Filtration Rate 110 mL/min (>60); Est Glom Filt Rate - Afr Amer 133 mL/min (>60); Estimated Creatinine Clearance 110.72 ml/min; Glucose 131 mg/dL (74-106); Magnesium 1.5 mg/dL (1.6-2.6); Phosphorus 2.8 mg/dL (2.5-4.9); Potassium 3.3 mmol/L (3.5-5.1); Sodium Level 136 mmol/L (136-145)
[2021-04-18 07:00] LABS: Bedside Glucose 131 mg/dL (70-110)
[2021-04-18] MEDS: Ipratropium/Albuterol Sulfate 3 ML AMPUL.NEB INHALATION ×2 (07:17→19:00)
--- NOTE | 2021-04-18 07:25 | PN.CC_ITS ---
Assessment & Plan Assessment/Plan (1) Cardiopulmonary arrest with successful resuscitation: PLAN: RECOMMENDATIONS: 1. Wean oxygen as tolerated 2. Bedside swallow evaluation prior to p.o. diet 3. Continue empiric antimicrobials pending culture data. 4. Increase activity as tolerated 5. Question about etiology once patient is more aware IMPRESSIONS: 1. Acute combined respiratory failure status post cardiac arrest Unclear precipitating etiology for the patient's arrest. She does not have a known prior cardiac history. Her prior pulmonary work-up several years ago revealed evidence of a restrictive ventilatory impairment, despite the patient's prior tobacco abuse history. She does have a known history of sleep apnea and most likely has alveolar hypoventilation as a consequence of her morbid obesity as well. The patient was successfully resuscitated. She does appear to have intact neurological function. Patient is showing a gram-negative on sputum. We will continue on empiric antibiotics pending culture data. 2. Acute kidney injury Resolved. Likely prerenal in etiology and related to #1. Anticipate improvement with stabilization of hemodynamics and oxygenation status. Continue to monitor urine output. No current indication for renal replacement therapy. Electrolyte repletion as necessary 3. History of DVT/PE Continue systemic anticoagulation as ordered. 4. Recent diagnosis of breast cancer/anemia/chronic pain sy ndrome/hypertension/seizure disorder/morbid obesity/STEPHANIE Complicates care, management, recovery and prognosis. Continue home medications as indicated. Recommend reinitiation of Pap therapy once extubated. TIME: 33 minutes of critical care time, independent of procedures, was spent addressing the patient's acute combined respiratory failure status post cardiac arrest, acute kidney injury, history of DVT/PE, review of all data and collaboration with the care team. (5:15 AM to 6:15 AM) Subjective Subjective Patient did well overnight. No acute issues were reported. Patient was able to pass a spontaneous breathing trial this morning and was extubated under my d irect supervision. Patient is reporting a sore throat and hoarseness, but no stridor was noted. Patient is not reporting any dyspnea. Objective Data Objective Data Vital Signs: Vital Signs Temp Pulse Resp BP Pulse Ox 35.9 C L 63 22 H 124/72 H 93 04/18/21 00:00 04/18/21 07:18 04/18/21 07:18 04/18/21 07:00 04/18/21 07:18 Oxygen Flow Rate (L/min) 2 Oxygen Delivery Method Nasal Cannula Weight: 129.5 kg Body Mass Index (BMI) 42.7 Intake & Output: Intake and Output for Last 24 Hours 04/16/21 04/17/21 04/18/21 23:59 23:59 23:59 Intake Total 1621.80 / 1646.65 1738.12 / 2593.62 1706.51 / 1706.51 Output Total 2050 / 2800 1375 / 2525 1300 / 1300 Balance -428.20 / -1153.35 363.12 / 68.62 406.51 / 406.51 Lab / Micro Data Result Diagrams: 04/18/21 05:30 04/18/21 05:30 Labs: Laboratory Results - last 24 hr 04/17/21 07:39: POC Glucose 112 H 04/17/21 12:28: POC Glucose 131 H 04/17/21 17:17: POC Glucose 145 H 04/18/21 00:54: POC Glucose 135 H 04/18/21 05:30: WBC 8.1, RBC 2.71 L, Hgb 8.3 L, Hct 26.6 L, MCV 98.2, MCH 30.6, MCHC 31.2 L, RDW Std Deviation 46.3 H, RDW Coeff of Immanuel 13.0, Plt Count 263, MPV 10.7, Immature Gran % (Auto) 0.400, Neut % (Auto) 65.5, Lymph % (Auto) 21.7, [place] % (Auto) 9.8, Eos % (Auto) 2.2, Baso % (Auto) 0.4, Absolute Neuts (auto) 5.3, Absolute Lymphs (auto) 1.77, Nucleated RBC % 0 04/18/21 05:30: Sodium 136, Potassium 3.3 L, Chloride 102, Carbon Dioxide 25.0, Anion Gap 9, BUN 18, Creatinine 0.60, Estim Creat Clear Calc 110.72, Est GFR (MDRD) Af Amer 133, Est GFR (MDRD) Non-Af 110, BUN/Creatinine Ratio 29.9 H, Glucose 131 H, Calcium 8.2 L, Phosphorus 2.8, Magnesium 1.5 L 04/18/21 06:56: POC Glucose 131 H Micro: Microbiology 04/16/21 09:49 Sputum, Induced/Lukens Gram Stain - Final 04/16/21 09:49 Sputum, Induced/Lukens Respiratory Culture - Preliminary GNR lactose [facility] 04/15/21 20:55 Mucosa - Nose Respiratory Panel (PCR) - Final ABG Data ABG results: ABG 04/18/21 06:01 Specimen Type ART Sample Site L Brach pH 7.35 Bicarbonate Actual 24.4 Total CO2 26 Base Excess -1 O2 Saturation 97 O2 % 30 ABG pCO2 43.9 ABG pO2 100 Олег Test Positive O2 Delivery Device Adult Vent Vent Mode CPAP/PS POC PEEP 5 POC Pressure Suppt 5 Physical Exam Const no apparent distress General Appearance: cooperative and comfortable Nutritional Appearance: morbidly obese HEENT normocephalic and head/scalp atraumatic Mouth: dry mucous membranes Eyes PERRL and conjunctivae normal Neck supple General: trachea midline Chest inspection of chest normal Chest: symmetrical chest wall rise; Negative for crepitus Resp Auscultation: diminished lung sounds; Negative for rales, rhonchi or wheezes Cardio regular rate, regular rhythm, S1 normal heart sound, S2 normal heart sound, no murmurs, no rub and no gallops GI normal to inspection, nondistended, normoactive bowel sounds Extremity no clubbing, cyanosis or edema Skin no rashes or lesions noted Neuro oriented x3 and CN's II-XII intact bilaterally Charges/Coding Procedures Hospitalists Procedures: 72580 Critial Care 1st Hr
[2021-04-18] MEDS: Magnesium Sulfate 4gm/100mL 4 GM/100 ML IV.SOLN. IV (08:13)
--- NOTE | 2021-04-18 09:36 | CT_ITS ---
STUDY: CT BRAIN WITHOUT CONTRAST REASON FOR EXAM: Female, 55 years old. Mental status change. Decreased responsiveness. Left-sided gaze. RADIATION DOSAGE (If Supplied By Facility): CTDIvol = ( 44.99 ) mGy, DLP = ( 897.35 ) mGycm TECHNIQUE: Transaxial CT imaging of the brain was performed without administration of intravenous contrast material. Individualized dose optimization techniques were used for this CT. COMPARISON: Comparison is made with prior examination dated 04/15/2021. FINDINGS: Normal soft tissue structures. Normal calvarium. The lateral ventricles aren''t decreased size for patient''s age. The third ventricle is barely visible. There is evidence of a decreased attenuation in the diffuse bilateral white matter tracts. Intracranial cerebral edema should be ruled out. Normal basal ganglia and thalami. Normal brainstem. Normal cerebellum. There is no intracranial hemorrhage. There are no findings of an acute ischemic infarction. Normal visualized paranasal sinuses. CT/Brain/Head without Contrast IMPRESSION: Findings suggestive of a increased intracranial cerebral edema with decreased size of the ventricles and decreased size of the gyral markings. The information was communicated to the attending physician. Electronically Signed: Jason Coleman MD at 10:32 EDT , Service support ,
[2021-04-18] MEDS: Ondansetron 4 MG/2 ML Vial IV ×2 (09:40→17:59)
[2021-04-18] MEDS: 0.9% Saline Lock 10 ML Syringe IV ×3 (09:40→17:59)
--- NOTE | 2021-04-18 10:53 | WOUNDNOTE ---
Was asked to see patient for surgical incision to the left breast. patient had a recent lumpectomy. incision is well approximated with steri strips in place. minimal pink/light yellow drainage noted. cleansed with soap and water. pat dry. placed an ABD pad to absorb moisture under breast. pt tolerated well. no need for dressing over incision.
[2021-04-18] MEDS: levETIRAcetam IV 1,000 MG/100 ML BAG 400 MG IV (11:16)
[2021-04-18] MEDS: Furosemide 40 MG/4 ML Vial IV ×2 (11:32→17:03)
[2021-04-18] MEDS: Insulin Lispro 100 UNIT/ML INSULN.PEN SC (11:47)
[2021-04-18 11:50] LABS: Bedside Glucose 153 mg/dL (70-110)
--- NOTE | 2021-04-18 12:10 | PCM.PN.HOSP ---
Subjective Subjective Patient was just extubated this morning and having some nausea and emesis at this time. Per nursing she appears to remain confused. Objective Data Objective Data Vital Signs: Vital Signs Temp Pulse Resp BP Pulse Ox 97.0 F L 66 15 129/74 H 95 04/18/21 12:00 04/18/21 12:00 04/18/21 12:00 04/18/21 12:00 04/18/21 12:00 Oxygen Flow Rate (L/min) 2 Oxygen Delivery Method Nasal Cannula Weight: 129.5 kg Body Mass Index (BMI) 42.7 Intake & Output: Intake and Output for Last 24 Hours 04/16/21 04/17/21 04/18/21 23:59 23:59 23:59 Intake Total 1621.80 / 1646.65 1738.12 / 2593.62 2225.43 / 2225.43 Output Total 2050 / 2800 1375 / 2525 1650 / 1650 Balance -428.20 / -1153.35 363.12 / 68.62 575.43 / 575.43 Lab / Micro Data Result Diagrams: 04/18/21 05:30 04/18/21 05:30 Labs: Laboratory Results - last 24 hr 04/17/21 12:28: POC Glucose 131 H 04/17/21 17:17: POC Glucose 145 H 04/18/21 00:54: POC Glucose 135 H 04/18/21 05:30: WBC 8.1, RBC 2.71 L, Hgb 8.3 L, Hct 26.6 L, MCV 98.2, MCH 30.6, MCHC 31.2 L, RDW Std Deviation 46.3 H, RDW Coeff of Immanuel 13.0, Plt Count 263, MPV 10.7, Immature Gran % (Auto) 0.400, Neut % (Auto) 65.5, Lymph % (Auto) 21.7, [place] % (Auto) 9.8, Eos % (Auto) 2.2, Baso % (Auto) 0.4, Absolute Neuts (auto) 5.3, Absolute Lymphs (auto) 1.77, Nucleated RBC % 0 04/18/21 05:30: Sodium 136, Potassium 3.3 L, Chloride 102, Carbon Dioxide 25.0, Anion Gap 9, BUN 18, Creatinine 0.60, Estim Creat Clear Calc 110.72, Est GFR (MDRD) Af Amer 133, Est GFR (MDRD) Non-Af 110, BUN/Creatinine Ratio 29.9 H, Glucose 131 H, Calcium 8.2 L, Phosphorus 2.8, Magnesium 1.5 L 04/18/21 06:56: POC Glucose 131 H 04/18/21 11:44: POC Glucose 153 H Micro: Microbiology 04/16/21 09:49 Sputum, Induced/Lukens Gram Stain - Final 04/16/21 09:49 Sputum, Induced/Lukens Respiratory Culture - Preliminary Klebsiella pneumoniae sp pneum Streptococcus group B 04/15/21 20:55 Mucosa - Nose Respiratory Panel (PCR) - Final ABG Data ABG results: ABG 04/18/21 06:01 Specimen Type ART Sample Site L Brach pH 7.35 Bicarbonate Actual 24.4 Total CO2 26 Base Excess -1 O2 Saturation 97 O2 % 30 ABG pCO2 43.9 ABG pO2 100 Олег Test Positive O2 Delivery Device Adult Vent Vent Mode CPAP/PS POC PEEP 5 POC Pressure Suppt 5 Radiography Diagnostic Testing: Radiology Impression Brain CT 04/18/21 09:36 IMPRESSION: Findings suggestive of a increased intracranial cerebral edema with decreased size of the ventricles and decreased size of the gyral markings. The information was communicated to the attending physician. Electronically Signed: Jason Coleman MD at 10:32 EDT , Service support , Physical Exam Const alert Constitutional Narrative: Morbidly obese middle-aged white female lying in bed, appears older than stated age, nursing at bedside, patient with head turned the left and emesis bag at the side of her mouth Exam Limitations: altered mental status HEENT head/scalp atraumatic and moist oral mucous membranes Head and Scalp: normocephalic Eyes PERRL, EOMs intact bilaterally and conjunctivae normal Neck no lymphadenopathy, supple and no JVD Neck Narrative: Short thick neck, trachea midline, no thyroid enlargement noted Resp normal respiratory effort, no retractions, no use of accessory muscles and No clear to auscultation bilaterally Resp Narrative: Rhonchi bilateral lower lobes Auscultation: rhonchi; Negative for crackles, rales or wheezes Cardio regular rate, regular rhythm, S1 normal heart sound, S2 normal heart sound, no murmurs, no rub, no gallops, no clicks and no JVD GI normal to inspection, nondistended, normoactive bowel sounds, soft to palpation, non-tender and non-distended Extremity normal to inspection and no clubbing, cyanosis or edema Peripheral Pulses: Yes pulses 2+ throughout Skin no rashes or lesions noted, no wounds, skin turgor normal, no jaundice, no petechiae and no mottling Skin Narrative: Pale skin Neuro moves all extremities and no focal motor deficits Sensorium / Orientation: awake and alert Speech: speech normal Psych Psych Narrative: Affect is flat Assessment & Plan Assessment/Plan (1) Cardiopulmonary arrest with successful resuscitation: (2) Acute respiratory failure with hypoxia and hypercapnia: (3) Klebsiella pneumonia: (4) Abnormal cardiac enzyme level: (5) LEIGH ANN (acute kidney injury): PLAN: Acute on chronic hypercapnic and hypoxic respiratory failure status post cardiac arrest -Etiology for PEA arrest is uncertain at this time -Patient with no prior known cardiac history -Patient does have lung disease at baseline -Appears to be neurologically intact at this time -Was able to be extubated to baseline oxygen of 4 L nasal cannula -Sputum is growing Klebsiella and strep species -Pulmonary is following-appreciate input Klebsiella/group B strep pneumonia -Continue antibiotics -Await sensitivities and narrow as able -Patient is on baseline O2 at 4 L Metabolic encephalopathy -Patient is alert but orientation is still not at baseline -We will question patient more about events prior to admission when she is more alert LEIGH ANN -Resolved Chronic anemia -Hemoglobin is relatively stable at this time History of PE/DVT -Continue enoxaparin 130 mg subcu every 12 hours -We will consider transitioning back to oral anticoagulants once stable -Baseline medication is Xarelto 20 mg daily Hypomagnesemia -Mag bolus -Repeat in a.m. Hypokalemia -Potassium phosphate bolus -Repeat in a.m. -Repeat mag level in a.m. Recent diagnosis of breast cancer -Recently underwent biopsy by Dr. 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 -Is being treated for a postoperative abscess -Continue antibiotics as ordered STEPHANIE -Baseline BiPAP settings are 22/18 -Consider BiPAP nocturnally once nausea and vomiting improved -Pulmonary is following COPD/restrictive lung disease -Secondary to tobacco abuse history and morbid obesity -Aerosols as ordered -Pulmonary following HFpEF -Patient with history of diastolic dysfunction -Currently stable and compensated -Continue to monitor -Continue Lasix and transition to oral once patient is able to tolerate Hypothyroidism -Continue home Synthroid History of seizure disorder -Continue Keppra HTN/HPL -Continue atorvastatin -Continue to hold antihypertensives at this time and reintroduce as able History of TIA -Patient is currently neurologically intact -Continue aspirin Morbid obesity -Recommend weight loss -Complicates overall treatment, prognosis, and outcomes Anxiety/depression -Continue home medications Chronic opiate/benzo use -Continue home benzodiazepines -Restart Oxy as needed DVT prophylaxis -Continue therapeutic Lovenox CODE STATUS -Full code Charges/Coding Visit Charges Inpatient E&M: 68385 Subs Hosp L2
[2021-04-18] MEDS: Haloperidol Lactate 5 MG/ML Vial 1 MG IV (13:46)
--- NOTE | 2021-04-18 15:58 | CASEMGMT ---
RN CM assessment deferred at this time as patient is not able to participate at this time. CM will continue to follow this patient and plan for a safe discharge.
--- NOTE | 2021-04-18 16:49 | PN.CARD_ITS ---
Subjective Subjective The patient is now extubated. She has been resting comfortably. There have been no new acute cardiovascular complaints. Objective Data Vital Signs: Vital Signs Temp Pulse Resp BP Pulse Ox 97.4 F L 79 16 134/82 H 98 04/18/21 16:00 04/18/21 16:00 04/18/21 16:00 04/18/21 16:00 04/18/21 16:00 Oxygen Flow Rate (L/min) 2 Oxygen Delivery Method Nasal Cannula Weight: 285 lb 7.978 oz Body Mass Index (BMI) 42.7 Intake & Output: Intake and Output for Last 24 Hours 04/16/21 04/17/21 04/18/21 23:59 23:59 23:59 Intake Total 1621.80 / 1646.65 1738.12 / 2593.62 2632.43 / 2632.43 Output Total 2050 / 2800 1375 / 2525 2550 / 2550 Balance -428.20 / -1153.35 363.12 / 68.62 82.43 / 82.43 Lab / Micro Data Result Diagrams: 04/18/21 05:30 04/18/21 05:30 Labs: Laboratory Results - last 24 hr 04/17/21 17:17: POC Glucose 145 H 04/18/21 00:54: POC Glucose 135 H 04/18/21 05:30: WBC 8.1, RBC 2.71 L, Hgb 8.3 L, Hct 26.6 L, MCV 98.2, MCH 30.6, MCHC 31.2 L, RDW Std Deviation 46.3 H, RDW Coeff of Immanuel 13.0, Plt Count 263, MPV 10.7, Immature Gran % (Auto) 0.400, Neut % (Auto) 65.5, Lymph % (Auto) 21.7, [place] % (Auto) 9.8, Eos % (Auto) 2.2, Baso % (Auto) 0.4, Absolute Neuts (auto) 5.3, Absolute Lymphs (auto) 1.77, Nucleated RBC % 0 04/18/21 05:30: Sodium 136, Potassium 3.3 L, Chloride 102, Carbon Dioxide 25.0, Anion Gap 9, BUN 18, Creatinine 0.60, Estim Creat Clear Calc 110.72, Est GFR (MDRD) Af Amer 133, Est GFR (MDRD) Non-Af 110, BUN/Creatinine Ratio 29.9 H, Glucose 131 H, Calcium 8.2 L, Phosphorus 2.8, Magnesium 1.5 L 04/18/21 06:56: POC Glucose 131 H 04/18/21 11:44: POC Glucose 153 H Micro: Microbiology 04/16/21 09:49 Sputum, Induced/Lukens Gram Stain - Final 04/16/21 09:49 Sputum, Induced/Lukens Respiratory Culture - Preliminary Klebsiella pneumoniae sp pneum Streptococcus group B ABG Data ABG results: ABG 04/18/21 06:01 Specimen Type ART Sample Site L Brach pH 7.35 Bicarbonate Actual 24.4 Total CO2 26 Base Excess -1 O2 Saturation 97 O2 % 30 ABG pCO2 43.9 ABG pO2 100 Олег Test Positive O2 Delivery Device Adult Vent Vent Mode CPAP/PS POC PEEP 5 POC Pressure Suppt 5 Cardiology Labs/Tests 04/18/21 05:30: WBC 8.1, RBC 2.71 L, Hgb 8.3 L, Hct 26.6 L, MCV 98.2, MCH 30.6, MCHC 31.2 L, Plt Count 263, MPV 10.7, Immature Gran % (Auto) 0.400, Neut % (Aut o) 65.5, Lymph % (Auto) 21.7, [place] % (Auto) 9.8, Eos % (Auto) 2.2, Baso % (Auto) 0.4, Absolute Neuts (auto) 5.3, Nucleated RBC % 0 04/18/21 05:30: Sodium 136, Potassium 3.3 L, Chloride 102, Carbon Dioxide 25.0, Anion Gap 9, BUN 18, Creatinine 0.60, Est GFR (MDRD) Af Amer 133, Est GFR (MDRD) Non-Af 110, BUN/Creatinine Ratio 29.9 H, Glucose 131 H, Calcium 8.2 L, Phosphorus 2.8, Magnesium 1.5 L 04/18/21 06:01: pH 7.35, Bicarbonate Actual 24.4, Base Excess -1, O2 Saturation 97, ABG pCO2 43.9, ABG pO2 100, Олег Test Positive Rhythm: Sinus rhythm EKG: Sinus rhythm; nonspecific T wave change; prolonged QT interval-appears decreased compared to the previous ECG Radiography Diagnostic Testing: Radiology Impression Venous Doppler Study 04/17/21 10:30 Interpretation Summary No evidence for acute deep vein thrombosis right lower extremity but unable to visualize the right popliteal, tibioperoneal trunk, or peroneal veins Acute deep venous thrombosis left posterior tibial vein extending into the tibioperoneal trunk. Patent and compressible bilateral great saphenous veins Technically difficult limited examination. Ordering Physician: Alexander Ye Referring Physician: Alvarez Montanez Performed By: Janeth Llanes, RDCS, RVT Brain CT 04/18/21 09:36 IMPRESSION: Findings suggestive of a increased intracranial cerebral edema with decreased size of the ventricles and decreased size of the gyral markings. The information was communicated to the attending physician. Electronically Signed: Jason Coleman MD at 10:32 EDT , Service support , Physical Exam HEENT normocephalic and head/scalp atraumatic Eyes PERRL Neck no JVD Resp Resp Narrative: No acute rales/rhonchi appreciated Cardio regular rate, regular rhythm, S1 normal heart sound and S2 normal heart sound GI normal to inspection, nondistended, normoactive bowel sounds Extremity no pedal edema Skin no rashes or lesions noted Assessment & Plan Assessment/Plan (1) Cardiopulmonary arrest with successful resuscitation: PLAN: The patient is reported as having a cardiopulmonary arrest with findings of PEA. The etiology is unclear at this time. There is some concern as to whether or not she may have experienced a seizure that led to this event. The patient has been evaluated for underlying laboratory/metabolic abnormalities. She was found to be anemic. She had a toxicology screen which was reported as negative. The patient is not known to have underlying cardiovascular disease. Her cardiac enzymes have not demonstrated any significant change. Her cardiac rhythm remains sinus rhythm. Of note, with respect to her ECG, it demonstrated normal sinus rhythm with a possible prolonged QT interval. Her repeat ECG demonstrates the QT interval to have decreased. At the present time she will continue to be followed as noted above. Depending upon her clinical course she may or may not need additional cardiovascular diagnostic studies, etc.. With respect to this issue, her comorbidities and medications (including her anticoagulant therapy) would have to be taken into consideration. In the interim she will continue medical management/support as deemed appropriate. It appears based upon the patient's H&P she has been on medical therapy which has included antiplatelet agents such as clopidogrel/Plavix (reportedly for a history of TIA), beta-blockers, diuretics with furosemide and spironolactone, ARB's, lipid-lowering agents/statins, and anticoagulant agents such as rivaroxaban (reportedly for history of thromboembolic disease/pulmonary emboli). (2) Acute respiratory failure with hypoxia and hypercapnia: PLAN: The patient was reported as having an acute respiratory failure event. She is being evaluated by internal medicine and pulmonology/critical care medicine. She has now been successfully extubated. (3) Restrictive lung disease: PLAN: The patient is reported as having a history of underlying restrictive lung disease thought possibly secondary to her morbid obesity. She has been evaluated by pulmonology in the past. It is Unclear whether this is a contributing component to her cardiopulmonary arrest event. (4) LEIGH ANN (acute kidney injury): PLAN: The patient had what appeared to be an acute elevation of her creatinine level. This may be secondary to her previous event. Her renal functi on will need to be followed. (5) Abnormal cardiac enzyme level: PLAN: She does have abnormal cardiac enzymes. Again it is unclear whether this may represent a primary event versus a secondary event secondary to her report of hypoxemia requiring mechanical intubation/ventilation. Her cardiac enzymes will be followed as well as her other noninvasive studies such as ECGs. Her echocardiogram is as noted. Depending upon her clinical course she may or may not need additional cardiovascular diagnostic studies. (6) Diastolic dysfunction: PLAN: Based upon her previous transthoracic echocardiogram there was conc erns of impaired relaxation on the left ventricle compatible with decreased diastolic compliance. According to her family members present there is been no report of any acute CHF events. She has been on medical management. (7) Anemia: PLAN: She does have anemia. Her H&H has decreased somewhat. The etiology is unclear at this time. Will need to be followed for any obvious hemorrhagic events. This concern could impact her antiplatelet/anticoagulant therapy. She will need to be followed for any worsening anemia that would require additional evaluation and/or PRBC transfusion. (8) HLD (hyperlipidemia): QUALIFIERS: Hyperlipidemia type: unspecified Qualified Code(s): E78.5 - Hyperlipidemia, unspecified PLAN: She has a history of hyperlipidemia and appears she has been on lipid-lowering therapy. (9) Essential hypertension: PLAN: She has a history of hypertension and it appears she has been on multiple antihypertensive agents. (10) Breast infection: PLAN: She has undergone a diagnosis of breast carcinoma and a recent lumpe ctomy and a subsequent adverse event to her wound and subsequent infection. She has been on antibiotic biotic therapy. It is unclear whether this infectious disease process contributed to her acute c ardiopulmonary arrest situation. She will need continued evaluation care per internal medicine and other specialties/subspecialties as needed such as surgery and infectious disease, etc. This finding has to be taken into consideration with respect to any additional cardiology procedures especially invasive procedures such as cardiac cath, etc.. (11) DVT (deep vein thrombosis) in : PLAN: It appears her venous duplex study was positive. It is unclear whether this is related to her recent event and/or contributed to her recent event such as having a thromboembolic event/PE even though her chest CT scan did not report this. However she will need continued evaluation care per internal medicine for this issue and continued measures to minimize the risk of propagation of this finding and/or any embolic phenomena from this finding as best she can from a noninvasive standpoint/medical standpoint and if she cannot tolerate anticoagulant therapy because of her concerns of anemia, then consideration will have to be given as to whether or not this finding would require further assistance such as an IVC filter to minimize the risk of thromboembolic events. (12) Morbid obesity: PLAN: Unfortunately she is morbidly obese. It appears that this has been a contributing factor to her underlying pulmonary disease findings in the past. Addt'l Comments The patient's case was discussed with Dr. Narayanan. This note was generated using a voice recognition system and there may be incorrect words, spelling or punctuation that were not noted when reviewing the office note prior to saving.
[2021-04-18] MEDS: Enoxaparin 150 MG/ML Syringe 130 MG SC (17:03)
[2021-04-18 17:20] LABS: Bedside Glucose 129 mg/dL (70-110)
[2021-04-19] VITALS (25 sets, daily range): BP systolic 129–171; BP diastolic 62–91; PULSE 65–91; RESP 14–20; TEMP 36.2–37.1; O2SAT 92–97
[2021-04-19 00:01] LABS: Bedside Glucose 147 mg/dL (70-110)
--- NOTE | 2021-04-19 05:55 | EKG12_ITS ---
Test Reason : AM EKG Blood Pressure : / mmHG Vent. Rate : 077 BPM Atrial Rate : 077 BPM P-R Int : 166 ms QRS Dur : 100 ms QT Int : 436 ms P-R-T Axes : 039 -07 -01 degrees QTc Int : 493 ms Normal sinus rhythm Normal ECG When compared with ECG of 18-APR-2021 05:02, MANUAL COMPARISON REQUIRED, DATA IS UNCONFIRMED Confirmed by TOBY BATISTA, CHARLENE ([id number]), communications editor SAUMYA PERAZA ([id number]) on 04/21/2021 8:29:52 AM Referred By: CARROLL Confirmed By:CHARLENE LUIS MD
[2021-04-19 06:12] LABS: ALB/GLOB Ratio 0.5 RATIO (0.9-2.4); AST(SGOT) 20 U/L (15-37); Alanine Aminotransfer ALT/SGPT 31 U/L (13-56); Albumin, Serum 2.4 g/dL (3.2-5.0); Alkaline Phosphatase 116 U/L (45-117); Anion Gap 7 (5-15); BUN 14 mg/dL (7-18); BUN/Creat Ratio 26.9 RATIO (10-20); Calcium,Total 8.5 mg/dL (8.5-10.1); Chloride 103 mmol/L (98-107); Creatinine, Serum 0.52 mg/dL (0.55-1.02); EST Glomerular Filtration Rate 130 mL/min (>60); Est Glom Filt Rate - Afr Amer 158 mL/min (>60); Estimated Creatinine Clearance 127.75 ml/min; Globulin 4.5 g/dL (2.2-4.2); Glucose 116 mg/dL (74-106); Potassium 3.4 mmol/L (3.5-5.1); Protein, Total 6.9 g/dL (6.4-8.2); Sodium Level 138 mmol/L (136-145)
[2021-04-19] MEDS: Enoxaparin 150 MG/ML Syringe 130 MG SC (06:16)
[2021-04-19] MEDS: 0.9% Saline Lock 10 ML Syringe IV ×2 (06:17→12:52)
[2021-04-19 06:24] LABS: Absolute Lymphocyte Count 1.55 X10^3/uL (0.83-4.51); Absolute Neutrophil Count 7.2 X10^3/uL (2.0-7.7); Basophil# 0.03 X10^3/uL; Basophil% 0.3 % (0-1); Eosinophil# 0.17 X10^3/uL; Eosinophils% 1.7 % (0-5); Hematocrit 27.5 % (37-47); Hemoglobin 8.6 g/dL (12.0-15.0); Lymphocyte # 1.55 X10^3/ul (0.83-4.51); Lymphocyte % 15.7 % (19-41); Mean Corp Hgb Conc 31.3 g/dL (32-36); Mean Corpuscular Hgb 30.4 pg (27.0-32.0); Mean Corpuscular Volume 97.2 fL (81-99); Mean Platelet Vol. 10.7 fl (6.2-12.0); Monocyte# 0.87 X10^3/uL; Monocyte% 8.8 % (0-10); NRBC Flagged by Analyzer 0 % (0-5); Platelet Count 305 K/mm3 (150-450); RBC Distribution Width CV 12.8 % (11.6-14.6); RBC Distribution Width SD 46.3 fl (35.1-43.9); Red Blood Count 2.83 M/mm3 (4.2-5.4); White Blood Count 9.9 K/mm3 (4.4-11.0)
[2021-04-19 06:36] LABS: Bedside Glucose 127 mg/dL (70-110)
[2021-04-19] MEDS: Ipratropium/Albuterol Sulfate 3 ML AMPUL.NEB INHALATION ×3 (06:54→20:30)
--- NOTE | 2021-04-19 07:33 | PN.CC_ITS ---
Assessment & Plan Assessment/Plan (1) Cardiopulmonary arrest with successful resuscitation: PLAN: RECOMMENDATIONS: 1. Wean oxygen as tolerated 2. Bedside swallow evaluation prior to p.o. diet 3. Transition to ceftriaxone to complete 7 days 4. Increase activity as tolerated 5. Continue diuretic therapy as tolerated IMPRESSIONS: 1. Acute combined respiratory failure status post cardiac arrest with complicating Klebsiella pneumonia Unclear precipitating etiology for the patient's arrest. She does not have a known prior cardiac history. Her prior pulmonary work-up several years ago revealed evidence of a restrictive ventilatory impairment, despite the patient's prior tobacco abuse history. She does have a known history of sleep apnea and most likely has alveolar hypoventilation as a consequence of her morbid obesity as well. The patient was successfully resuscitated. She does appear to have intact neurological function. We'll transition to ceftriaxone given questionable swallow to complete 7 days. Patient was able to tolerate cefepime, so ceftriaxone is likely okay despite reported allergy to penicillins. 2. Acute kidney injury Resolved. Likely prerenal in etiology and related to #1. Anticipate improvement with stabilization of hemodynamics and oxygenation status. Continue to monitor urine output. No current indication for renal replacement therapy. Electrolyte repletion as necessary. 3. History of DVT/PE Continue systemic anticoagulation as ordered. 4. Recent diagnosis of breast cancer/anemia/chronic pain synd marlon/hypertension/seizure disorder/morbid obesity/STEPHANIE Complicates care, management, recovery and prognosis. Continue home medications as indicated. Recommend reinitiation of Pap therapy once extubated. Subjective Subjective Patient on minimal nasal cannula oxygen to maintain saturations. Patient has had a significant cough overnight, but not much production. Patient remains profoundly weak. Patient is reporting some chest soreness that she associates with her cough. Objective Data Objective Data Vital Signs: Vital Signs Temp Pulse Resp BP Pulse Ox 37.1 C 76 14 140/62 H 93 04/19/21 04:00 04/19/21 07:00 04/19/21 07:00 04/19/21 07:00 04/19/21 07:00 Oxygen Flow Rate (L/min) 2 Oxygen Delivery Method Nasal Cannula Weight: 125.9 kg Body Mass Index (BMI) 42.7 Intake & Output: Intake and Output for Last 24 Hours 04/17/21 04/18/21 04/19/21 23:59 23:59 23:59 Intake Total 1738.12 / 2593.62 2897.43 / 2897.43 310 / 310 Output Total 1375 / 2525 3675 / 4100 650 / 650 Balance 363.12 / 68.62 -777.57 / -1202.57 -340 / -340 Lab / Micro Data Result Diagrams: 04/19/21 04:30 04/19/21 04:30 Labs: Laboratory Results - last 24 hr 04/18/21 11:44: POC Glucose 153 H 04/18/21 17:05: POC Glucose 129 H 04/18/21 23:49: POC Glucose 147 H 04/19/21 04:30: WBC 9.9, RBC 2.83 L, Hgb 8.6 L, Hct 27.5 L, MCV 97.2, MCH 30.4, MCHC 31.3 L, RDW Std Deviation 46.3 H, RDW Coeff of Immanuel 12.8, Plt Count 305, MPV 10.7, Immature Gran % (Auto) 0.500, Neut % (Auto) 73.0 H, Lymph % (Auto) 15.7 L, Ellsworth % (Auto) 8.8, Eos % (Auto) 1.7, Baso % (Auto) 0.3, Absolute Neuts (auto) 7.2, Absolute Lymphs (auto) 1.55, Nucleated RBC % 0 04/19/21 04:30: Sodium 138, Potassium 3.4 L, Chloride 103, Carbon Dioxide 28.0, Anion Gap 7, BUN 14, Creatinine 0.52 L, Estim Creat Clear Calc 127.75, Est GFR (MDRD) Af Amer 158, Est GFR (MDRD) Non-Af 130, BUN/Creatinine Ratio 26.9 H, Glucose 116 H, Calcium 8.5, Total Bilirubin 0.30, AST 20, ALT 31, Alkaline Phosphatase 116, Total Protein 6.9, Albumin 2.4 L, Globulin 4.5 H, Albumin/Globulin Ratio 0.5 L 04/19/21 06:27: POC Glucose 127 H Micro: Microbiology 04/16/21 09:49 Sputum, Induced/Lukens Gram Stain - Final 04/16/21 09:49 Sputum, Induced/Lukens Respiratory Culture - Preliminary Klebsiella pneumoniae sp pneum Streptococcus group B 04/15/21 20:55 Mucosa - Nose Respiratory Panel (PCR) - Final Radiography Diagnostic Testing: Radiology Impression Venous Doppler Study 04/17/21 10:30 Interpretation Summary No evidence for acute deep vein thrombosis right lower extremity but unable to visualize the right popliteal, tibioperoneal trunk, or peroneal veins Acute deep venous thrombosis left posterior tibial vein extending into the tibioperoneal trunk. Patent and compressible bilateral great saphenous veins Technically difficult limited examination. Ordering Physician: Alexander Ye Referring Physician: Alvarez Montanez Performed By: Janeth Llanes, RDCS, RVT Brain CT 04/18/21 09:36 IMPRESSION: Findings suggestive of a increased intracranial cerebral edema with decreased size of the ventricles and decreased size of the gyral markings. The information was communicated to the attending physician. Electronically Signed: Jason Coleman MD at 10:32 EDT , Service support , Physical Exam Const no apparent distress General Appearance: cooperative and comfortable Nutritional Appearance: morbidly obese HEENT normocephalic and head/scalp atraumatic Mouth: dry mucous membranes Eyes PERRL and conjunctivae normal Neck supple General: trachea midline Chest inspection of chest normal Chest: symmetrical chest wall rise; Negative for crepitus Resp Auscultation: diminished lung sounds; Negative for rales, rhonchi or wheezes Cardio regular rate, regular rhythm, S1 normal heart sound, S2 normal heart sound, no murmurs, no rub and no gallops GI normal to inspection, nondistended, normoactive bowel sounds Extremity General Extremity: edema bilateral (1+); Negative for clubbing or cyanosis Skin no rashes or lesions noted Neuro oriented x3 and CN's II-XII intact bilaterally Psych Activity / Motor Behavior: other Intention tremor noted Mood & Affect: flat affect Charges/Coding Visit Charges Inpatient E&M: 53397 Subs Hosp L3
[2021-04-19] MEDS: Ceftriaxone 1 GM/50 ML BAG IV (10:42)
[2021-04-19] MEDS: Furosemide 40 MG/4 ML Vial IV ×2 (10:43→18:33)
[2021-04-19] MEDS: Magnesium Chloride 64 MG Delay Rel.Tablet PO (10:55)
[2021-04-19] MEDS: Venlafaxine XR 75 MG Capsule PO (10:55)
[2021-04-19] MEDS: clonazePAM 0.5 MG Tablet PO ×2 (10:55→21:56)
[2021-04-19] MEDS: Clopidogrel Bisulfate 75 MG Tablet PO (10:55)
[2021-04-19] MEDS: Metoprolol(XL)Succ 100 MG Tablet PO (11:40)
--- NOTE | 2021-04-19 11:45 | CASEMGMT ---
RN CM Face to Face with patient for initial transition planning/care coordination assessment. RN CM introduced self and role at [facility]. Patient lying in bed, alert and oriented. Patient willing to participate in assessment and is able to answer all questions appropriately. Care providers, pharmacy, and demographics verified. Will monitor patient's progress with therapy and course of treatment to determine discharge disposition. Patient states she has no further needs or concerns at this time. CM to follow for discharge planning needs that may arise. PCP: Tarik Specialists: surgeon Deborah Lui Pharmacy: [facility] Insurance: [facility] Prescription Benefit: yes Living Will/HPOA: none LNOK: brother and sister in law Living Arrangements: Patient has been staying with her brother since her has . Brother's house is single story home with 1 step to enter the home. Transportation: Brother or [facility] DME/HHC: Patient has oxygen at 2 lpm through [employer]. Patient denies pervious HHC or SNF. Disposition Plan: TBD by course of treatment and progress with therapy. Ivy NAVA, RN, CM
[2021-04-19 11:51] LABS: Bedside Glucose 140 mg/dL (70-110)
[2021-04-19] MEDS: Ondansetron 4 MG/2 ML Vial IV (12:52)
--- NOTE | 2021-04-19 13:10 | WOUNDNOTE ---
In to reassess the left breast incison. no purulence noted today, but there is some bloody drainage noted today. slightly less redness noted. steri strips remain in place. new ABD pad placed. pt still appears quite forgetful today.
--- NOTE | 2021-04-19 13:11 | PCM.PN.HOSP ---
Subjective Subjective Patient now on minimal oxygen at 2 L. Some intermittent coughing with 1 emesis yesterday produced from coughing but none since. Profound generalized weakness and remains somewhat encephalopathic. Objective Data Objective Data Vital Signs: Vital Signs Temp Pulse Resp BP Pulse Ox 97.2 F L 90 20 H 159/89 H 92 04/19/21 12:00 04/19/21 13:00 04/19/21 13:00 04/19/21 12:00 04/19/21 12:00 Oxygen Flow Rate (L/min) 2 Oxygen Delivery Method Nasal Cannula Weight: 125.9 kg Body Mass Index (BMI) 42.7 Intake & Output: Intake and Output for Last 24 Hours 04/17/21 04/18/21 04/19/21 23:59 23:59 23:59 Intake Total 1988.12 / 2843.62 2897.43 / 2897.43 1195 / 1195 Output Total 1375 / 2525 3675 / 4100 1550 / 1550 Balance 613.12 / 318.62 -777.57 / -1202.57 -355 / -355 Lab / Micro Data Result Diagrams: 04/19/21 04:30 04/19/21 04:30 Labs: Laboratory Results - last 24 hr 04/18/21 17:05: POC Glucose 129 H 04/18/21 23:49: POC Glucose 147 H 04/19/21 04:30: WBC 9.9, RBC 2.83 L, Hgb 8.6 L, Hct 27.5 L, MCV 97.2, MCH 30.4, MCHC 31.3 L, RDW Std Deviation 46.3 H, RDW Coeff of Immanuel 12.8, Plt Count 305, MPV 10.7, Immature Gran % (Auto) 0.500, Neut % (Auto) 73.0 H, Lymph % (Auto) 15.7 L, Trinity % (Auto) 8.8, Eos % (Auto) 1.7, Baso % (Auto) 0.3, Absolute Neuts (auto) 7.2, Absolute Lymphs (auto) 1.55, Nucleated RBC % 0 04/19/21 04:30: Sodium 138, Potassium 3.4 L, Chloride 103, Carbon Dioxide 28.0, Anion Gap 7, BUN 14, Creatinine 0.52 L, Estim Creat Clear Calc 127.75, Est GFR (MDRD) Af Amer 158, Est GFR (MDRD) Non-Af 130, BUN/Creatinine Ratio 26.9 H, Glucose 116 H, Calcium 8.5, Total Bilirubin 0.30, AST 20, ALT 31, Alkaline Phosphatase 116, Total Protein 6.9, Albumin 2.4 L, Globulin 4.5 H, Albumin/Globulin Ratio 0.5 L 04/19/21 06:27: POC Glucose 127 H 04/19/21 11:39: POC Glucose 140 H Micro: Microbiology 04/16/21 09:49 Sputum, Induced/Lukens Gram Stain - Final 04/16/21 09:49 Sputum, Induced/Lukens Respiratory Culture - Final Klebsiella pneumoniae sp pneum Streptococcus agalactiae (B) 04/15/21 20:55 Mucosa - Nose Respiratory Panel (PCR) - Final Radiography Diagnostic Testing: Radiology Impression Venous Doppler Study 04/17/21 10:30 Interpretation Summary No evidence for acute deep vein thrombosis right lower extremity but unable to visualize the right popliteal, tibioperoneal trunk, or peroneal veins Acute deep venous thrombosis left posterior tibial vein extending into the tibioperoneal trunk. Patent and compressible bilateral great saphenous veins Technically difficult limited examination. Ordering Physician: Alexander Ye Referring Physician: Alvarez Montanez Performed By: Janeth Llanes, OTTONIEL, RVT Physical Exam Const alert Constitutional Narrative: Morbidly obese middle-aged white female lying in bed, appears older than stated age, patient lying in bed sleeping but awakens and minimally interactive with exam Exam Limitations: altered mental status HEENT head/scalp atraumatic and moist oral mucous membranes HEENT Narrative: Mallampati 3-4, no thrush Head and Scalp: normocephalic Neck no lymphadenopathy, supple and no JVD Neck Narrative: Short thick neck, trachea midline, no thyroid enlargement noted Resp normal respiratory effort, no retractions, no use of accessory muscles and No clear to auscultation bilaterally Resp Narrative: Rhonchi bilateral lower lobes Auscultation: rhonchi; Negative for crackles, rales or wheezes Cardio regular rate, regular rhythm, S1 normal heart sound, S2 normal heart sound, no murmurs, no rub, no gallops, no clicks and no JVD GI normal to inspection, nondistended, normoactive bowel sounds, soft to palpation, non-tender and non-distended Extremity normal to inspection and no clubbing, cyanosis or edema Peripheral Pulses: Yes pulses 2+ throughout Skin no rashes or lesions noted, no wounds, skin turgor normal, no jaundice, no petechiae and no mottling Skin Narrative: Pale skin Neuro CN's II-XII intact bilaterally, moves all extremities and no focal motor deficits Neuro Narrative: Generalized weakness throughout but moves all extremities symmetrically Sensorium / Orientation: awake and alert Speech: speech normal Psych Psych Narrative: Affect is flat, mood is depressed, eye contact is fair Assessment & Plan Assessment/Plan (1) Cardiopulmonary arrest with successful resuscitation: (2) Acute respiratory failure with hypoxia and hypercapnia: (3) Klebsiella pneumonia: (4) Abnormal cardiac enzyme level: (5) LEIGH ANN (acute kidney injury): PLAN: Acute on chronic hypercapnic and hypoxic respiratory failure status post cardiac arrest -Etiology for PEA arrest is uncertain at this time -Patient with no prior known cardiac history -Patient does have lung disease at baseline -Acute DVT noted in left lower extremity -Appears to be neurologically intact at this time but with generalized weakness -Patient is now on 2 L nasal cannula -Sputum is growing Klebsiella and strep species -Pulmonary is following-appreciate input Cerebral edema -Suspect this is related to her anoxia suffered during her PEA arrest -Continue to monitor clinically -She is already on Keppra for history of seizure disorder -Resolved Klebsiella/group B strep pneumonia -Antibiotics have been narrowed to ceftriaxone -Will need to complete 7-day course of antibiotics--> day 4 of 7 Metabolic encephalopathy -Patient is alert but orientation is still not at baseline and remains somewhat depressed today -We will question patient more about events prior to admission when she is more alert Left acute lower extremity DVT -Patient was supposed to be on Xarelto -Unclear if she had been compliant at home -Therapeutic Lovenox has been switched back to Xarelto now that she is able to take p.o. LEIGH ANN -Resolved Chronic anemia -Hemoglobin is relatively stable at this time History of PE/DVT -Enoxaparin discontinued and Xarelto reinitiated Hypomagnesemia -Repeat a.m. mag level Hypokalemia -Potassium replaced -Repeat in a.m. Recent diagnosis of breast cancer -Recently underwent biopsy by Dr. 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 -Is being treated for a postoperative abscess -Continue antibiotics as ordered Chronic anemia -Hemoglobin is stable -Continue to monitor with full anticoagulation STEPHANIE -Baseline BiPAP settings are -Consider BiPAP nocturnally once nausea and vomiting improved -Pulmonary is following COPD/restrictive lung disease -Secondary to tobacco abuse history and morbid obesity -Aerosols as ordered -Pulmonary following HFpEF -Patient with history of diastolic dysfunction -Currently stable and compensated -Continue to monitor -Restart home medications -Continue Lasix and transition to oral once patient is able to tolerate Hypothyroidism -Continue home Synthroid History of seizure disorder -Continue Keppra HTN/HPL -Continue atorvastatin -Restart home antihypertensives -Continue IV Lasix History of TIA -Patient is currently neurologically intact -Continue aspirin -CT shows no sign of infarct Morbid obesity -Recommend weight loss -Complicates overall treatment, prognosis, and outcomes Anxiety/depression -Continue home medications Chronic opiate/benzo use -Continue home benzodiazepines -Restart Oxy as needed DVT prophylaxis -Converted to therapeutic Xarelto CODE STATUS -Full code Charges/Coding Visit Charges Inpatient E&M: 57423 Subs Hosp L2
[2021-04-19] MEDS: Losartan Potassium 100 MG Tablet PO (15:47)
[2021-04-19] MEDS: Spironolactone 50 MG Tablet PO (15:50)
--- NOTE | 2021-04-19 16:38 | PN.CARD_ITS ---
Subjective Subjective The patient remains in the ICU. She has not complained of any acute cardiovascular symptoms. Objective Data Vital Signs: Vital Signs Temp Pulse Resp BP Pulse Ox 97.1 F L 78 15 157/91 H 93 04/19/21 13:00 04/19/21 16:00 04/19/21 16:00 04/19/21 13:00 04/19/21 16:00 Oxygen Flow Rate (L/min) 2 Oxygen Delivery Method Nasal Cannula Weight: 277 lb 8.992 oz Body Mass Index (BMI) 42.7 Intake & Output: Intake and Output for Last 24 Hours 04/17/21 04/18/21 04/19/21 23:59 23:59 23:59 Intake Total 1988.12 / 2843.62 2897.43 / 2897.43 1195 / 1195 Output Total 1375 / 2525 3675 / 4100 2200 / 2200 Balance 613.12 / 318.62 -777.57 / -1202.57 -1005 / -1005 Lab / Micro Data Result Diagrams: 04/19/21 04:30 04/19/21 04:30 Labs: Laboratory Results - last 24 hr 04/18/21 17:05: POC Glucose 129 H 04/18/21 23:49: POC Glucose 147 H 04/19/21 04:30: WBC 9.9, RBC 2.83 L, Hgb 8.6 L, Hct 27.5 L, MCV 97.2, MCH 30.4, MCHC 31.3 L, RDW Std Deviation 46.3 H, RDW Coeff of Immanuel 12.8, Plt Count 305, MPV 10.7, Immature Gran % (Auto) 0.500, Neut % (Auto) 73.0 H, Lymph % (Auto) 15.7 L, Dickinson % (Auto) 8.8, Eos % (Auto) 1.7, Baso % (Auto) 0.3, Absolute Neuts (auto) 7.2, Absolute Lymphs (auto) 1.55, Nucleated RBC % 0 04/19/21 04:30: Sodium 138, Potassium 3.4 L, Chloride 103, Carbon Dioxide 28.0, Anion Gap 7, BUN 14, Creatinine 0.52 L, Estim Creat Clear Calc 127.75, Est GFR (MDRD) Af Amer 158, Est GFR (MDRD) Non-Af 130, BUN/Creatinine Ratio 26.9 H, Glucose 116 H, Calcium 8.5, Total Bilirubin 0.30, AST 20, ALT 31, Alkaline Phosphatase 116, Total Protein 6.9, Albumin 2.4 L, Globulin 4.5 H, Albumin/Globulin Ratio 0.5 L 04/19/21 06:27: POC Glucose 127 H 04/19/21 11:39: POC Glucose 140 H Micro: Microbiology 04/16/21 09:49 Sputum, Induced/Lukens Gram Stain - Final 04/16/21 09:49 Sputum, Induced/Lukens Respiratory Culture - Final Klebsiella pneumoniae sp pneum Streptococcus agalactiae (B) Cardiology Labs/Tests 04/19/21 04:30: WBC 9.9, RBC 2.83 L, Hgb 8.6 L, Hct 27.5 L, MCV 97.2, MCH 30.4, MCHC 31.3 L, Plt Count 305, MPV 10.7, Immature Gran % (Auto) 0.500, Neut % (Auto) 73.0 H, Lymph % (Auto) 15.7 L, Dickinson % (Auto) 8.8, Eos % (Auto) 1.7, Baso % (Auto) 0.3, Absolute Neuts (auto) 7.2, Nucleated RBC % 0 04/19/21 04:30: Sodium 138, Potassium 3.4 L, Chloride 103, Carbon Dioxide 28.0, Anion Gap 7, BUN 14, Creatinine 0.52 L, Est GFR (MDRD) Af Amer 158, Est GFR (MDRD) Non-Af 130, BUN/Creatinine Ratio 26.9 H, Glucose 116 H, Calcium 8.5, Total Bilirubin 0.30 Rhythm: Sinus rhythm EKG: Sinus rhythm; of note the QT interval appears to be within normal range at this time Physical Exam Narrative The patient is currently in the ICU mechanically intubated and ventilated. HEENT normocephalic and head/scalp atraumatic Eyes PERRL Neck no JVD Resp Resp Narrative: No acute rales/rhonchi appreciated Cardio regular rate, regular rhythm, S1 normal heart sound and S2 normal heart sound GI normal to inspection, nondistended, normoactive bowel sounds Extremity no pedal edema Skin no rashes or lesions noted Assessment & Plan Assessment/Plan (1) Cardiopulmonary arrest with successful resuscitation: PLAN: The patient is reported as having a cardiopulmonary arrest with findings of PEA. The etiology is unclear at this time. There is some concern as to whether or not she may have experienced a seizure that led to this event. She has had follow-up radiologic studies that have demonstrated concerns of cerebral edema. The patient has been evaluated for underlying laboratory/metabolic abnormalities. She was found to be anemic. She had a toxicology screen which was reported as negative. The patient is not known to have underlying cardiovascular disease. Her cardiac enzymes have not demonstrated any significant change. Her cardiac rhythm remains sinus rhythm. Of note, with respect to her ECG, it demonstrated normal sinus rhythm with a possible prolonged QT interval. Her repeat ECG demonstrates the QT interval to have decreased and subsequently normalized. It is unclear whether this change was related to her cardiopulmonary arrest situation and noncardiac issues and/or noncardiovascular medical therapy. At the present time she will continue to be followed as noted above. Depending upon her clinical course she may or may not need additional cardiovascular diagnostic studies, etc.. With respect to this issue, her comorbidities and medications (including her anticoagulant therapy) would have to be taken into consideration. In the interim she will continue medical management/support as deemed appropria te. It appears based upon the patient's H&P she has been on medical therapy which has included antiplatelet agents such as clopidogrel/Plavix (reportedly for a history of TIA), beta-blockers, diuretics with furosemide and spironolactone, ARB's, lipid-lowering agents/statins, and anticoagulant agents such as rivaroxaban (reportedly for history of thromboembolic disease/pulmonary emboli). (2) Acute respiratory failure with hypoxia and hypercapnia: PLAN: The patient was reported as having an acute respiratory failure event. She is being evaluated by internal medicine and pulmonology/critical care medicine. She has now been successfully extubated. (3) Restrictive lung disease: PLAN: The patient is reported as having a history of underlying restrictive lung disease thought possibly secondary to her morbid obesity. She has been evaluated by pulmonology in the past. It is Unclear whether this is a contributing component to her cardiopulmonary arrest event. (4) LEIGH ANN (acute kidney injury): PLAN: The patient had what appeared to be an acute elevation of her c reatinine level. This may be secondary to her previous event. Her renal function will need to be followed. (5) Abnormal cardiac enzyme level: PLAN: She does have abnormal cardiac enzymes. Again it is unclear whether this may represent a primary event versus a secondary event secondary to her report of hypoxemia requiring mechanical intubation/ventilation. Her cardiac enzymes will be followed as well as her other noninvasive studies such as ECGs. Her echocardiogram is as noted. Depending upon her clinical course she may or may not need additional cardiovascular diagnostic studies. (6) Diastolic dysfunction: PLAN: Based upon her previous transthoracic echocardiogram there was concerns of impaired relaxation on the left ventricle compatible with decreased diastolic compliance. According to her family members present there is been no report of any acute CHF events. She has been on medical management. (7) Anemia: PLAN: She does have anemia. Her H&H remains low. The etiology is unclear at this time. Will need to be followed for any obvious hemorrhagic events. This concern could impact her antiplatelet/anticoagulant therapy. She will need to be followed for any worsening anemia that would require additional evaluation and/or PRBC transfusion. (8) HLD (hyperlipidemia): QUALIFIERS: Hyperlipidemia type: unspecified Qualified Code(s): E78.5 - Hyperlipidemia, unspecified PLAN: She has a history of hyperlipidemia and appears she has been on lipid-lowering therapy. (9) Essential hypertension: PLAN: She has a history of hypertension and it appears she has been on multiple antihypertensive agents. (10) Breast infection: PLAN: She has undergone a diagnosis of breast carcinoma and a recent lumpectomy and a subsequent adverse event to her wound and subsequent infection. She has been on antibiotic biotic therapy. It is unclear whether this infectious disease process contributed to her acute cardiopulmonary arrest situation. She will need continued evaluation care per internal medicine and other specialties/subspecialties as needed such as surgery and infectious disease, etc. This finding has to be taken into consideration with respect to any additional cardiology procedures especially invasive procedures such as cardiac cath, etc.. (11) DVT (deep vein thrombosis) in : PLAN: It appears her venous duplex study was positive. It is unclear whether this is related to her recent event and/or contributed to her recent event such as having a thromboembolic event/PE even though her chest CT scan did not report this. However she will need continued evaluation care per internal medicine for this issue and continued measures to minimize the risk of propagation of this finding and/or any embolic phenomena from this finding as best she can from a noninvasive standpoint/medical standpoint and if she cannot tolerate anticoagulant therapy because of her concerns of anemia, then consideration will have to be given as to whether or not this finding would require further assistance such as an IVC filter to minimize the risk of thromboembolic events. (12) Morbid obesity: PLAN: Unfortunately she is morbidly obese. It appears that this has been a contributing factor to her underlying pulmonary disease findings in the past. Addt'l Comments This note was generated using a voice recognition system and there may be incorrect words, spelling or punctuation that were not noted when reviewing the office note prior to saving.
[2021-04-19] MEDS: Rivaroxaban 20 MG Tablet PO (16:44)
[2021-04-19 16:56] LABS: Bedside Glucose 132 mg/dL (70-110)
[2021-04-19] MEDS: Atorvastatin Calcium 80 MG Tablet PO (21:56)
[2021-04-19 22:51] LABS: Bedside Glucose 120 mg/dL (70-110)
[2021-04-20] VITALS (14 sets, daily range): BP systolic 105–119; BP diastolic 63–77; PULSE 56–78; RESP 12–16; TEMP 36.6–37.3; O2SAT 93–98
[2021-04-20 05:38] LABS: Absolute Lymphocyte Count 1.53 X10^3/uL (0.83-4.51); Absolute Neutrophil Count 7.6 X10^3/uL (2.0-7.7); Basophil# 0.04 X10^3/uL; Basophil% 0.4 % (0-1); Eosinophil# 0.29 X10^3/uL; Eosinophils% 2.7 % (0-5); Hematocrit 29.7 % (37-47); Lymphocyte # 1.53 X10^3/ul (0.83-4.51); Lymphocyte % 14.4 % (19-41); Mean Corp Hgb Conc 30.3 g/dL (32-36); Mean Corpuscular Hgb 30.2 pg (27.0-32.0); Mean Corpuscular Volume 99.7 fL (81-99); Monocyte% 10.3 % (0-10); NRBC Flagged by Analyzer 0 % (0-5); Neutrophil # 7.63 X10^3/uL (2.7-7.7); Neutrophil % 71.7 % (47-70); Platelet Count 340 K/mm3 (150-450); RBC Distribution Width SD 47.3 fl (35.1-43.9); Red Blood Count 2.98 M/mm3 (4.2-5.4); White Blood Count 10.6 K/mm3 (4.4-11.0)
[2021-04-20 05:59] LABS: Anion Gap 7 (5-15); BUN 20 mg/dL (7-18); BUN/Creat Ratio 39.1 RATIO (10-20); Calcium,Total 9.4 mg/dL (8.5-10.1); Chloride 103 mmol/L (98-107); Creatinine, Serum 0.51 mg/dL (0.55-1.02); EST Glomerular Filtration Rate 132 mL/min (>60); Est Glom Filt Rate - Afr Amer 160 mL/min (>60); Estimated Creatinine Clearance 130.25 ml/min; Glucose 115 mg/dL (74-106); Sodium Level 140 mmol/L (136-145)
[2021-04-20 06:20] LABS: Bedside Glucose 105 mg/dL (70-110)
--- NOTE | 2021-04-20 07:22 | PCM.PN.INT ---
Assessment & Plan Assessment/Plan (1) Cardiopulmonary arrest with successful resuscitation: PLAN: RECOMMENDATIONS: 1. Wean oxygen as tolerated. Challenge with diuretics as ordered 2. Encourage incentive spirometer 3. Transition to ceftriaxone to complete 7 days 4. Increase activity as tolerated 5. Hemodynamically stable on minimal nasal cannula oxygen. Will sign off from a critical care perspective IMPRESSIONS: 1. Acute combined respiratory failure status post cardiac arrest with complicating Klebsiella pneumonia Unclear precipitating etiology for the patient's arrest. She does not have a known prior cardiac history. Her prior pulmonary work-up several years ago revealed evidence of a restrictive ventilatory impairment, despite the patient's prior tobacco abuse history. She does have a known history of sleep apnea and most likely has alveolar hypoventilation as a consequence of her morbid obesity as well. The patient was successfully resuscitated. She does appear to have intact neurological function, but continued global weakness. We'll transition to ceftriaxone given questionable swallow to complete 7 days total of antibiotics. Patient was able to tolerate cefepime, so ceftriaxone is likely okay despite reported allergy to penicillins. 2. Acute kidney injury Resolved. Likely prerenal in etiology and related to #1. Anticipate improvement with stabilization of hemodynamics and oxygenation status. Continue to monitor urine output. No current indication for renal replacement therapy. Electrolyte repletion as necessary. 3. History of DVT/PE Continue systemic anticoagulation as ordered. 4. Recent diagnosis of breast cancer/anemia/chronic pain syndrome/hypertension/seizure disorder/morbid obesity/STEPHANIE Complicates care, management, recovery and prognosis. Continue home medications as indicated. Recommend reinitiation of Pap therapy once extubated. Subjective Subjective Patient did okay overnight. Patient subjectively feels improved compared to previous. Patient still with profound weakness. Patient is reporting chest soreness, but no change compared to yesterday. Cough is slightly improved. Objective Data Objective Data Vital Signs: Vital Signs Temp Pulse Resp BP Pulse Ox 36.6 C 57 L 16 118/77 98 04/20/21 04:00 04/20/21 04:00 04/20/21 04:00 04/20/21 04:00 04/20/21 04:00 Oxygen Flow Rate (L/min) 2 Oxygen Delivery Method Nasal Cannula Weight: 126.1 kg Body Mass Index (BMI) 42.7 Intake & Output: Intake and Output for Last 24 Hours 04/18/21 04/19/21 04/20/21 23:59 23:59 23:59 Intake Total 2897.43 / 2897.43 1951.75 / 1951.75 Output Total 3675 / 4100 3250 / 3250 275 / 275 Balance -777.57 / -1202.57 -1298.25 / -1298.25 -275 / -275 Lab / Micro Data Result Diagrams: 04/20/21 05:30 04/20/21 05:30 Labs: Laboratory Results - last 24 hr 04/19/21 11:39: POC Glucose 140 H 04/19/21 16:41: POC Glucose 132 H 04/19/21 21:34: POC Glucose 120 H 04/20/21 05:30: WBC 10.6, RBC 2.98 L, Hgb 9.0 L, Hct 29.7 L, MCV 99.7 H, MCH 30.2, MCHC 30.3 L, RDW Std Deviation 47.3 H, RDW Coeff of Immanuel 13.0, Plt Count 340, MPV 10.0, Immature Gran % (Auto) 0.500, Neut % (Auto) 71.7 H, Lymph % (Auto) 14.4 L, [place] % (Auto) 10.3 H, Eos % (Auto) 2.7, Baso % (Auto) 0.4, Absolute Neuts (auto) 7.6, Absolute Lymphs (auto) 1.53, Nucleated RBC % 0 04/20/21 05:30: Sodium 140, Potassium 4.0, Chloride 103, Carbon Dioxide 30.0, Anion Gap 7, BUN 20 H, Creatinine 0.51 L, Estim Creat Clear Calc 130.25, Est GFR (MDRD) Af Amer 160, Est GFR (MDRD) Non-Af 132, BUN/Creatinine Ratio 39.1 H, Glucose 115 H, Calcium 9.4 04/20/21 06:08: POC Glucose 105 Micro: Microbiology 04/16/21 09:49 Sputum, Induced/Lukens Gram Stain - Final 04/16/21 09:49 Sputum, Induced/Lukens Respiratory Culture - Final Klebsiella pneumoniae sp pneum Streptococcus agalactiae (B) 04/15/21 20:55 Mucosa - Nose Respiratory Panel (PCR) - Final Physical Exam Const no apparent distress General Appearance: cooperative and comfortable Nutritional Appearance: morbidly obese HEENT normocephalic and head/scalp atraumatic Mouth: tongue normal Eyes PERRL and conjunctivae normal Neck supple General: trachea midline Chest inspection of chest normal Chest: symmetrical chest wall rise; Negative for crepitus Resp Auscultation: diminished lung sounds; Negative for rales, rhonchi or wheezes Cardio regular rate, regular rhythm, S1 normal heart sound, S2 normal heart sound, no murmurs, no rub and no gallops GI normal to inspection, nondistended, normoactive bowel sounds Extremity General Extremity: edema bilateral (1+); Negative for clubbing or cyanosis Skin no rashes or lesions noted Neuro oriented x3 and CN's II-XII intact bilaterally Neuro Narrative: Still profoundly weak in the extremities. Psych Activity / Motor Behavior: other Intention tremor noted Mood & Affect: flat affect Charges/Coding Visit Charges Inpatient E&M: 72870 Subs Hosp L2
--- NOTE | 2021-04-20 08:58 | PCS.PANDOC ---
PANDEMIC DOCUMENTATION INITIATED: Date: 03/07/2021 Time: 190
--- NOTE | 2021-04-20 09:35 | PCM.PN.CARD ---
Subjective Subjective The patient is awake. She is responding to verbal stimuli/questions. She states the last thing she remembers is her following into her. She does not recall any other acute symptoms at home such as chest discomfort, worsening shortness of breath/dyspnea, palpitations, the sensation of lightheadedness/dizziness, etc. She states she has a seizure disorder but she does not recall having a recent seizure. She states she believes she was taking her medications as prescribed and wearing her STEPHANIE CPAP therapy as prescribed. Objective Data Vital Signs: Vital Signs Temp Pulse Resp BP Pulse Ox 97.8 F 78 16 118/77 96 04/20/21 04:00 04/20/21 08:55 04/20/21 04:00 04/20/21 04:00 04/20/21 07:22 Oxygen Flow Rate (L/min) 2 Oxygen Delivery Method Nasal Cannula Weight: 278 lb 0.046 oz Body Mass Index (BMI) 42.7 Intake & Output: Intake and Output for Last 24 Hours 04/18/21 04/19/21 04/20/21 23:59 23:59 23:59 Intake Total 2897.43 / 2897.43 1951.75 / 1951.75 Output Total 3675 / 4100 3250 / 3250 275 / 275 Balance -777.57 / -1202.57 -1298.25 / -1298.25 -275 / -275 Lab / Micro Data Result Diagrams: 04/20/21 05:30 04/20/21 05:30 Labs: Laboratory Results - last 24 hr 04/19/21 11:39: POC Glucose 140 H 04/19/21 16:41: POC Glucose 132 H 04/19/21 21:34: POC Glucose 120 H 04/20/21 05:30: WBC 10.6, RBC 2.98 L, Hgb 9.0 L, Hct 29.7 L, MCV 99.7 H, MCH 30.2, MCHC 30.3 L, RDW Std Deviation 47.3 H, RDW Coeff of Immanuel 13.0, Plt Count 340, MPV 10.0, Immature Gran % (Auto) 0.500, Neut % (Auto) 71.7 H, Lymph % (Auto) 14.4 L, [place] % (Auto) 10.3 H, Eos % (Auto) 2.7, Baso % (Auto) 0.4, Absolute Neuts (auto) 7.6, Absolute Lymphs (auto) 1.53, Nucleated RBC % 0 04/20/21 05:30: Sodium 140, Potassium 4.0, Chloride 103, Carbon Dioxide 30.0, Anion Gap 7, BUN 20 H, Creatinine 0.51 L, Estim Creat Clear Calc 130.25, Est GFR (MDRD) Af Amer 160, Est GFR (MDRD) Non-Af 132, BUN/Creatinine Ratio 39.1 H, Glucose 115 H, Calcium 9.4 04/20/21 06:08: POC Glucose 105 Micro: Microbiology 04/16/21 09:49 Sputum, Induced/Lukens Gram Stain - Final 04/16/21 09:49 Sputum, Induced/Lukens Respiratory Culture - Final Klebsiella pneumoniae sp pneum Streptococcus agalactiae (B) Cardiology Labs/Tests 04/20/21 05:30: WBC 10.6, RBC 2.98 L, Hgb 9.0 L, Hct 29.7 L, MCV 99.7 H, MCH 30.2, MCHC 30.3 L, Plt Count 340, MPV 10.0, Immature Gran % (Auto) 0.500, Neut % (Auto) 71.7 H, Lymph % (Auto) 14.4 L, [place] % (Auto) 10.3 H, Eos % (Auto) 2.7, Baso % (Auto) 0.4, Absolute Neuts (auto) 7.6, Nucleated RBC % 0 04/20/21 05:30: Sodium 140, Potassium 4.0, Chloride 103, Carbon Dioxide 30.0, Anion Gap 7, BUN 20 H, Creatinine 0.51 L, Est GFR (MDRD) Af Amer 160, Est GFR (MDRD) Non-Af 132, BUN/Creatinine Ratio 39.1 H, Glucose 115 H, Calcium 9.4 Rhythm: Sinus rhythm Physical Exam Narrative The patient is currently in the ICU mechanically intubated and ventilated. HEENT normocephalic and head/scalp atraumatic Eyes PERRL Neck no JVD Resp Resp Narrative: No acute rales/rhonchi appreciated Cardio regular rate, regular rhythm, S1 normal heart sound and S2 normal heart sound GI normal to inspection, nondistended, normoactive bowel sounds Extremity no pedal edema Skin no rashes or lesions noted Assessment & Plan Assessment/Plan (1) Cardiopulmonary arrest with successful resuscitation: PLAN: The patient is reported as having a cardiopulmonary arrest with findings of PEA. The etiology is unclear at this time. There is some concern as to whether or not she may have experienced a seizure that led to this event. She has had follow-up radiologic studies that have demonstrated concerns of cerebral edema. (2) Acute respiratory failure with hypoxia and hypercapnia: PLAN: The patient was reported as having an acute respiratory failure event. She is being evaluated by internal medicine and pulmonology/critical care medicine. She has now been successfully extubated. She is now in the PCU. (3) Restrictive lung disease: PLAN: The patient is reported as having a history of underlying restrictive lung disease thought possibly secondary to her morbid obesity. She has been evaluated by pulmonology in the past. It is Unclear whether this is a contributing component to her cardiopulmonary arrest event. (4) LEIGH ANN (acute kidney injury): PLAN: The patient had what appeared to be an acute elevation of her creatinine level. This may be secondary to her previous event. Her renal function will need to be followed. (5) Abnormal cardiac enzyme level: PLAN: She does have abnormal cardiac enzymes. Again it is unclear whether this may represent a primary event versus a secondary event secondary to her report of hypoxemia requiring mechanical intubation/ventilation. Her cardiac enzymes will be followed as well as her other noninvasive studies such as ECGs. Her echocardiogram is as noted. Depending upon her clinical course she may or may not need additional cardiovascular diagnostic studies. (6) Diastolic dysfunction: PLAN: Based upon her previous transthoracic echocardiogram there was concerns of impaired relaxation on the left ventricle compatible with decreased diastolic compliance. According to her family members present there is been no report of any acute CHF events. She has been on medical management. (7) Anemia: PLAN: She does have anemia. Her H&H remains low. The etiology is unclear at this time. Will need to be followed for any obvious hemorrhagic events. This concern could impact her antiplatelet/anticoagulant therapy. She will need to be followed for any worsening anemia that would require additional evaluation and/or PRBC transfusion. (8) HLD (hyperlipidemia): QUALIFIERS: Hyperlipidemia type: unspecified Qualified Code(s): E78.5 - Hyperlipidemia, unspecified PLAN: She has a history of hyperlipidemia and appears she has been on lipid-lowering therapy. (9) Essential hypertension: PLAN: She has a history of hypertension and it appears she has been on multiple antihypertensive agents. (10) Breast infection: PLAN: She has undergone a diagnosis of breast carcinoma and a recent lumpectomy and a subsequent adverse event to her wound and subsequent infection. She has been on antibiotic biotic therapy. It is unclear whether this infectious disease process contributed to her acute cardiopulmonary arrest situation. She will need continued evaluation care per internal medicine and other specialties/subspecialties as needed such as surgery and infectious disease, etc. This finding has to be taken into consideration with respect to any additional cardiology procedures especially invasive procedures such as cardiac cath, etc.. (11) DVT (deep vein thrombosis) in : PLAN: It appears her venous duplex study was positive. The patient states that she takes her anticoagulant therapy as prescribed although she states it was temporarily interrupted for her breast surgery. She believes she was on medical management with Lovenox during that time. (12) Morbid obesity: PLAN: Unfortunately she is morbidly obese. It appears that this has been a contributing factor to her underlying pulmonary disease findings in the past. Addt'l Comments Overall, at the present time, she will continue conservative medical management at this time as she continues to recuperate from her acute event as well as concerns of underlying infectious disease related events, etc., with her future clinical course guiding additional cardiovascular evaluation care as needed. The patient's case was discussed and reviewed with Dr. Barker. This note was generated using a voice recognition system and there may be incorrect words, spelling or punctuation that were not noted when reviewing the office note prior to saving.
[2021-04-20] MEDS: Furosemide 40 MG/4 ML Vial IV ×2 (09:51→17:15)
[2021-04-20] MEDS: Venlafaxine XR 75 MG Capsule PO (10:14)
[2021-04-20] MEDS: clonazePAM 0.5 MG Tablet PO ×2 (10:14→21:10)
[2021-04-20] MEDS: Metoprolol(XL)Succ 100 MG Tablet PO (10:15)
[2021-04-20] MEDS: Magnesium Chloride 64 MG Delay Rel.Tablet PO (10:15)
[2021-04-20] MEDS: Clopidogrel Bisulfate 75 MG Tablet PO (10:15)
[2021-04-20] MEDS: Ceftriaxone 1 GM/50 ML BAG IV (10:30)
[2021-04-20 12:06] LABS: Bedside Glucose 145 mg/dL (70-110)
[2021-04-20] MEDS: Spironolactone 50 MG Tablet PO (12:31)
[2021-04-20] MEDS: Losartan Potassium 100 MG Tablet PO (12:31)
--- NOTE | 2021-04-20 12:50 | PN.HOSP_ITS ---
Subjective Subjective Patient is much more awake and communicative this morning. She does complain of generalized weakness but no focal deficits. I did discuss with her the events of her presentation and she does not recall anything. She states she was not having any symptoms that she is aware of and really does not even remember where these events occurred prior to her presentation to the hospital. She denies taking any extra medications and states she has no suicidal ideation or plan and has her children and grandchildren to live for. She states she is been compliant with her home medications and does not recall having any recent seizures. She also indicates she was wearing her CPAP therapy for her obstructive sleep apnea as prescribed. Objective Data Objective Data Vital Signs: Vital Signs Temp Pulse Resp BP Pulse Ox 98.2 F 57 L 12 110/67 95 04/20/21 09:50 04/20/21 10:42 04/20/21 09:50 04/20/21 10:15 04/20/21 10:42 Oxygen Flow Rate (L/min) 2 Oxygen Delivery Method Nasal Cannula Weight: 126.1 kg Body Mass Index (BMI) 42.7 Intake & Output: Intake and Output for Last 24 Hours 04/18/21 04/19/21 04/20/21 23:59 23:59 23:59 Intake Total 2897.43 / 2897.43 1951.75 / 1951.75 565 / 565 Output Total 3675 / 4100 3250 / 3250 925 / 925 Balance -777.57 / -1202.57 -1298.25 / -1298.25 -360 / -360 Lab / Micro Data Result Diagrams: 04/20/21 05:30 04/20/21 05:30 Labs: Laboratory Results - last 24 hr 04/19/21 16:41: POC Glucose 132 H 04/19/21 21:34: POC Glucose 120 H 04/20/21 05:30: WBC 10.6, RBC 2.98 L, Hgb 9.0 L, Hct 29.7 L, MCV 99.7 H, MCH 30.2, MCHC 30.3 L, RDW Std Deviation 47.3 H, RDW Coeff of Immanuel 13.0, Plt Count 340, MPV 10.0, Immature Gran % (Auto) 0.500, Neut % (Auto) 71.7 H, Lymph % (Auto) 14.4 L, [place] % (Auto) 10.3 H, Eos % (Auto) 2.7, Baso % (Auto) 0.4, Absolute Neuts (auto) 7.6, Absolute Lymphs (auto) 1.53, Nucleated RBC % 0 04/20/21 05:30: Sodium 140, Potassium 4.0, Chloride 103, Carbon Dioxide 30.0, Anion Gap 7, BUN 20 H, Creatinine 0.51 L, Estim Creat Clear Calc 130.25, Est GFR (MDRD) Af Amer 160, Est GFR (MDRD) Non-Af 132, BUN/Creatinine Ratio 39.1 H, Glucose 115 H, Calcium 9.4 04/20/21 06:08: POC Glucose 105 04/20/21 11:57: POC Glucose 145 H Micro: Microbiology 04/16/21 09:49 Sputum, Induced/Lukens Gram Stain - Final 04/16/21 09:49 Sputum, Induced/Lukens Respiratory Culture - Final Klebsiella pneumoniae sp pneum Streptococcus agalactiae (B) 04/15/21 20:55 Mucosa - Nose Respiratory Panel (PCR) - Final Physical Exam Narrative Const alert and oriented x3 Constitutional Narrative: Morbidly obese middle-aged white female lying in bed, appears older than stated age, patient awake and much more interactive and able to communicate today, occupational health nursing director is at the bedside Exam Limitations: no limitations Nutritional Appearance: morbidly obese HEENT head/scalp atraumatic and moist oral mucous membranes Head and Scalp: normocephalic Resp normal respiratory effort, no retractions, no use of accessory muscles and clear to auscultation bilaterally Auscultation: Negative for crackles, rales, rhonchi or wheezes Cardio regular rate, regular rhythm, S1 normal heart sound, S2 normal heart sound, no murmurs, no rub, no gallops, no clicks and no JVD GI normal to inspection, nondistended, normoactive bowel sounds, soft to palpation, non-tender and non-distended Extremity normal to inspection and no clubbing, cyanosis or edema Peripheral Pulses: Yes pulses 2+ throughout Neuro oriented x3, CN's II-XII intact bilaterally, moves all extremities and no focal motor deficits Neuro Narrative: Marked generalized weakness throughout but moves all extremities symmetrically speech is normal but slow Sensorium / Orientation: awake and alert Psych Psych Narrative: Patient more interactive, affect is still flat and mood still seems depressed Mood & Affect: depressed Assessment & Plan Assessment/Plan (1) Cardiopulmonary arrest with successful resuscitation: (2) Acute respiratory failure with hypoxia and hypercapnia: (3) Klebsiella pneumonia: (4) Abnormal cardiac enzyme level: (5) LEIGH ANN (acute kidney injury): PLAN: Acute on chronic hypercapnic and hypoxic respiratory failure status post cardiac arrest -Etiology for PEA arrest is uncertain at this time -Patient with no prior known cardiac history -Patient does have lung disease at baseline -Acute DVT noted in left lower extremity -Appears to be neurologically intact at this time but with generalized weakness -Patient is now on 2 L nasal cannula with an SPO2 of 95 to 98% -Pulmonary is following-appreciate input Cerebral edema -Suspect this is related to her anoxia suffered during her PEA arrest -Continue to monitor clinically -She is already on Keppra for history of seizure disorder -Continue PT/OT -Likely need placement for rehab after discharge Klebsiella/group B strep pneumonia -Continue ceftriaxone -Will need to complete 7-day course of antibiotics--> day 5 of 7 Metabolic encephalopathy -Mental status is much improved today -Patient is alert and oriented at this time Left acute lower extremity DVT -Continue Xarelto -Patient indicates she is compliant with her medications Chronic anemia -Hemoglobin is relatively stable at this time History of PE/DVT -Continue Xarelto Hypomagnesemia -Repeat a.m. mag level Hypokalemia -Resolved Recent diagnosis of breast cancer -Recently underwent biopsy by Dr. 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 -Is being treated for a postoperative abscess -Continue antibiotics as ordered Chronic anemia -Hemoglobin is stable -Continue to monitor with full anticoagulation STEPHANIE -Continue nocturnal BiPAP at COPD/restrictive lung disease -Secondary to tobacco abuse history and morbid obesity -Aerosols as ordered -Pulmonary following HFpEF -Patient with history of diastolic dysfunction -Currently stable and compensated -Continue to monitor -Restart home medications -Continue Lasix and transition to oral once patient is able to tolerate Hypothyroidism -Continue home Synthroid History of seizure disorder -Continue Keppra HTN/HPL -Continue atorvastatin -Restart home antihypertensives -Continue IV Lasix History of TIA -Patient is currently neurologically intact -Continue aspirin -CT shows no sign of infarct Morbid obesity -Recommend weight loss -Complicates overall treatment, prognosis, and outcomes Anxiety/depression -Continue home medications Chronic opiate/benzo use -Continue home benzodiazepines -Restart Oxy as needed DVT prophylaxis -Converted to therapeutic Xarelto CODE STATUS -Full code Charges/Coding Visit Charges Inpatient E&M: 47146 Subs Hosp L2
--- NOTE | 2021-04-20 14:42 | CASEMGMT ---
SW attempted to talk with patient regarding discharge plan. However, she was very sleepy and could not stay awake to talk. SW did leave a list in her room and told her SW will stop back by tomorrow. Kathryn Corral ELECTROTHERAPIST JAE
[2021-04-20] MEDS: Rivaroxaban 20 MG Tablet PO (17:13)
[2021-04-20 17:26] LABS: Bedside Glucose 107 mg/dL (70-110)
[2021-04-20] MEDS: Ipratropium/Albuterol Sulfate 3 ML AMPUL.NEB INHALATION (19:25)
[2021-04-20] MEDS: Acetaminophen 325 MG Tablet 650 MG PO (20:51)
[2021-04-20] MEDS: Atorvastatin Calcium 80 MG Tablet PO (21:10)
[2021-04-20 22:25] LABS: Bedside Glucose 114 mg/dL (70-110)
[2021-04-20] MEDS: 0.9% Saline Lock 10 ML Syringe IV (22:27)
[2021-04-21] VITALS (16 sets, daily range): BP systolic 106–119; BP diastolic 60–82; PULSE 55–69; RESP 16–18; TEMP 36.3–36.7; O2SAT 91–99
[2021-04-21 05:15] LABS: Absolute Lymphocyte Count 1.91 X10^3/uL (0.83-4.51); Absolute Neutrophil Count 7.1 X10^3/uL (2.0-7.7); Basophil# 0.03 X10^3/uL; Basophil% 0.3 % (0-1); Eosinophil# 0.35 X10^3/uL; Eosinophils% 3.3 % (0-5); Hematocrit 29.4 % (37-47); Hemoglobin 8.9 g/dL (12.0-15.0); Lymphocyte # 1.91 X10^3/ul (0.83-4.51); Lymphocyte % 18.2 % (19-41); Mean Corp Hgb Conc 30.3 g/dL (32-36); Mean Corpuscular Hgb 30.5 pg (27.0-32.0); Mean Corpuscular Volume 100.7 fL (81-99); Mean Platelet Vol. 10.4 fl (6.2-12.0); Monocyte# 1.05 X10^3/uL; NRBC Flagged by Analyzer 0 % (0-5); Neutrophil % 67.9 % (47-70); Platelet Count 323 K/mm3 (150-450); RBC Distribution Width CV 13.1 % (11.6-14.6); RBC Distribution Width SD 48.5 fl (35.1-43.9); Red Blood Count 2.92 M/mm3 (4.2-5.4); White Blood Count 10.5 K/mm3 (4.4-11.0)
[2021-04-21 05:32] LABS: Magnesium 2.2 mg/dL (1.6-2.6)
[2021-04-21 06:51] LABS: Bedside Glucose 110 mg/dL (70-110)
[2021-04-21] MEDS: Spironolactone 50 MG Tablet PO (08:48)
[2021-04-21] MEDS: Losartan Potassium 100 MG Tablet PO (08:49)
[2021-04-21] MEDS: Magnesium Chloride 64 MG Delay Rel.Tablet PO (08:49)
[2021-04-21] MEDS: Furosemide 40 MG/4 ML Vial IV ×2 (08:49→18:10)
[2021-04-21] MEDS: Clopidogrel Bisulfate 75 MG Tablet PO (08:49)
[2021-04-21] MEDS: Venlafaxine XR 75 MG Capsule PO (08:49)
[2021-04-21] MEDS: clonazePAM 0.5 MG Tablet PO ×2 (08:53→22:01)
[2021-04-21] MEDS: Ceftriaxone 1 GM/50 ML BAG IV (10:48)
[2021-04-21 11:41] LABS: Bedside Glucose 112 mg/dL (70-110)
--- NOTE | 2021-04-21 11:56 | CASEMGMT ---
WILNER spoke with patient this am. She was still groggy, but did respond a little more. She is okay with SW calling her sister in law regarding which nursing facility she should go to. Patient said she is in agreement with going somewhere for rehab. SW called patient's sister in law and left her a voice mail requesting a return call. Await return call. Kathryn Corral CARBON GRINDER JAE
[2021-04-21] MEDS: Acetaminophen 325 MG Tablet 650 MG PO ×2 (12:12→22:01)
[2021-04-21] MEDS: Metoprolol(XL)Succ 100 MG Tablet PO (12:12)
--- NOTE | 2021-04-21 13:13 | CASEMGMT ---
WILNER had not heard from patient's sister in law so WILNER called her again. She answered. WILNER spoke with her about a discharge plan. She said their first choice would be [facility] and second would be [facility]. WILNER told her SW will work on making referrals and get back to them. WILNER faxed referral to [facility] and also called Sally. Await response. Kathryn Corral SOCIAL SERVICES AIDE JAE
--- NOTE | 2021-04-21 14:07 | CASEMGMT ---
WILNER did fax a referral to [facility] as well in the event [facility] will not take patient. WILNER spoke with Nadia at [facility]. Await responses. Kathryn Corral JAIL KEEPER JAE
--- NOTE | 2021-04-21 14:45 | CASEMGMT ---
WILNER received a call from Sally at [facility] and they are declining patient. WILNER will update patient and her sister in law. Kathryn Corral TECHNOLOGY SERVICES MANAGER JAE
[2021-04-21] MEDS: HYDROcodone Bitartrate/Apap 5/325 Tablet PO (14:54)
--- NOTE | 2021-04-21 15:54 | CASEMGMT ---
SW received a call from Nad[facility] and they too are going to have to decline patient. SW attempted to call patient's sister in law to let her know, but she did not answer. WILNER will follow up tomorrow. Kathryn ROWE
[2021-04-21 16:20] LABS: Bedside Glucose 105 mg/dL (70-110)
--- NOTE | 2021-04-21 18:14 | PN.HOSP_ITS ---
Subjective Subjective Patient states she is feeling okay today. Mentation is improving and patient is more interactive. She denies any current complaints. Still has no recollection of what occurred. Objective Data Objective Data Vital Signs: Vital Signs Temp Pulse Resp BP Pulse Ox 97.9 F 59 L 16 118/80 99 04/21/21 18:06 04/21/21 18:06 04/21/21 18:06 04/21/21 18:06 04/21/21 18:06 Oxygen Flow Rate (L/min) 2 Oxygen Delivery Method Nasal Cannula Weight: 125.8 kg Body Mass Index (BMI) 42.7 Intake & Output: Intake and Output for Last 24 Hours 04/19/21 04/20/21 04/21/21 23:59 23:59 23:59 Intake Total 1951.75 / 1951.75 1020 / 1020 865 / 865 Output Total 3250 / 3250 1600 / 1600 300 / 300 Balance -1298.25 / -1298.25 -580 / -580 565 / 565 Lab / Micro Data Result Diagrams: 04/21/21 05:04 04/20/21 05:30 Labs: Laboratory Results - last 24 hr 04/20/21 21:09: POC Glucose 114 H 04/21/21 05:04: WBC 10.5, RBC 2.92 L, Hgb 8.9 L, Hct 29.4 L, MCV 100.7 H, MCH 30.5, MCHC 30.3 L, RDW Std Deviation 48.5 H, RDW Coeff of Immanuel 13.1, Plt Count 323, MPV 10.4, Immature Gran % (Auto) 0.300, Neut % (Auto) 67.9, Lymph % (Auto) 18.2 L, [place] % (Auto) 10.0, Eos % (Auto) 3.3, Baso % (Auto) 0.3, Absolute Neuts (auto) 7.1, Absolute Lymphs (auto) 1.91, Nucleated RBC % 0 04/21/21 05:04: Magnesium 2.2 04/21/21 06:18: POC Glucose 110 04/21/21 11:37: POC Glucose 112 H 04/21/21 16:02: POC Glucose 105 Micro: Microbiology 04/16/21 09:49 Sputum, Induced/Lukens Gram Stain - Final 04/16/21 09:49 Sputum, Induced/Lukens Respiratory Culture - Final Klebsiella pneumoniae sp pneum Streptococcus agalactiae (B) 04/15/21 20:55 Mucosa - Nose Respiratory Panel (PCR) - Final Physical Exam Narrative Const alert and oriented x3 Constitutional Narrative: Morbidly obese middle-aged white female lying in bed, appears older than stated age, patient awake and patient continues to be more interactive and vocal Exam Limitations: no limitations Nutritional Appearance: morbidly obese HEENT head/scalp atraumatic and moist oral mucous membranes Head and Scalp: normocephalic Resp normal respiratory effort, no retractions, no use of accessory muscles and clear to auscultation bilaterally Auscultation: Negative for crackles, rales, rhonchi or wheezes Cardio regular rate, regular rhythm, S1 normal heart sound, S2 normal heart sound, no murmurs, no rub, no gallops, no clicks and no JVD GI normal to inspection, nondistended, normoactive bowel sounds, soft to palpation, non-tender and non-distended Extremity normal to inspection and no clubbing, cyanosis or edema Peripheral Pulses: Yes pulses 2+ throughout Neuro oriented x3, CN's II-XII intact bilaterally, moves all extremities and no focal motor deficits Neuro Narrative: Marked generalized weakness throughout but moves all extremities symmetrically speech is normal but slow Sensorium / Orientation: awake and alert Speech: speech normal Psych Psych Narrative: Patient is again more interactive, affect is still flat and mood still seems depressed Mood & Affect: depressed Assessment & Plan Assessment/Plan (1) Cardiopulmonary arrest with successful resuscitation: (2) Acute respiratory failure with hypoxia and hypercapnia: (3) Klebsiella pneumonia: (4) Abnormal cardiac enzyme level: (5) LEIGH ANN (acute kidney injury): PLAN: Acute on chronic hypercapnic and hypoxic respiratory failure status post cardiac arrest -Etiology for PEA arrest is uncertain at this time -Patient with no prior known cardiac history -Patient does have lung disease at baseline -Acute DVT noted in left lower extremity -Appears to be neurologically intact at this time but with generalized weakness -Patient remains on 2 L nasal cannula with an SPO2 of 95 to 98% -Baseline oxygen is documented as 3 to 4 L -Plan is for cardiac catheterization tomorrow given unknown etiology for PEA arrest -DOAC held -Pulmonary is following-appreciate input Cerebral edema -Suspect this is related to her anoxia suffered during her PEA arrest -Continue to monitor clinically -She is already on Keppra for history of seizure disorder -Continue PT/OT -Likely need placement for rehab after discharge -Case management is working on this Klebsiella/group B strep pneumonia -Continue ceftriaxone -Will need to complete 7-day course of antibiotics--> day 6 of 7 Metabolic encephalopathy -Mental status is much improved today -Patient is alert and oriented at this time Left acute lower extremity DVT -Continue Xarelto -Patient indicates she is compliant with her medications Chronic anemia -Hemoglobin is relatively stable at this time History of PE/DVT -Continue Xarelto Hypomagnesemia -Repeat a.m. mag level Hypokalemia -Resolved Recent diagnosis of breast cancer -Recently underwent biopsy by Dr. 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 -Is being treated for a postoperative abscess -Continue antibiotics as ordered Chronic anemia -Hemoglobin is stable -Continue to monitor with full anticoagulation STEPHANIE -Continue nocturnal BiPAP at 22/18 COPD/restrictive lung disease -Secondary to tobacco abuse history and morbid obesity -Aerosols as ordered -Pulmonary following HFpEF -Patient with history of diastolic dysfunction -Currently stable and compensated -Continue to monitor -Restart home medications -Continue Lasix and transition to oral once patient is able to tolerate Hypothyroidism -Continue home Synthroid History of seizure disorder -Continue Keppra HTN/HPL -Continue atorvastatin -Restart home antihypertensives -Continue IV Lasix History of TIA -Patient is currently neurologically intact -Continue aspirin -CT shows no sign of infarct Morbid obesity -Recommend weight loss -Complicates overall treatment, prognosis, and outcomes Anxiety/depression -Continue home medications Chronic opiate/benzo use -Continue home benzodiazepines -Restart Oxy as needed DVT prophylaxis -Converted to therapeutic Xarelto CODE STATUS -Full code Charges/Coding Visit Charges Inpatient E&M: 54916 Subs Hosp L2
--- NOTE | 2021-04-21 18:20 | PN.CARD_ITS ---
Subjective Subjective The patient is appears to be awake and alert and is responding to verbal stimuli and questioning appropriately. She denies any obvious chest discomfort other than that related to her left breast surgical site. She is not complaining of ongoing shortness of breath/dyspnea at this time. There is been no obvious pa lpitations. Objective Data Vital Signs: Vital Signs Temp Pulse Resp BP Pulse Ox 97.9 F 59 L 16 118/80 99 04/21/21 18:06 04/21/21 18:06 04/21/21 18:06 04/21/21 18:06 04/21/21 18:06 Oxygen Flow Rate (L/min) 2 Oxygen Delivery Method Nasal Cannula Weight: 277 lb 5.464 oz Body Mass Index (BMI) 42.7 Intake & Output: Intake and Output for Last 24 Hours 04/19/21 04/20/21 04/21/21 23:59 23:59 23:59 Intake Total 1951.75 / 1951.75 1020 / 1020 865 / 865 Output Total 3250 / 3250 1600 / 1600 300 / 300 Balance -1298.25 / -1298.25 -580 / -580 565 / 565 Lab / Micro Data Result Diagrams: 04/21/21 05:04 04/20/21 05:30 Labs: Laboratory Results - last 24 hr 04/20/21 21:09: POC Glucose 114 H 04/21/21 05:04: WBC 10.5, RBC 2.92 L, Hgb 8.9 L, Hct 29.4 L, MCV 100.7 H, MCH 30.5, MCHC 30.3 L, RDW Std Deviation 48.5 H, RDW Coeff of Immanuel 13.1, Plt Count 323, MPV 10.4, Immature Gran % (Auto) 0.300, Neut % (Auto) 67.9, Lymph % (Auto) 18.2 L, [place] % (Auto) 10.0, Eos % (Auto) 3.3, Baso % (Auto) 0.3, Absolute Neuts (auto) 7.1, Absolute Lymphs (auto) 1.91, Nucleated RBC % 0 04/21/21 05:04: Magnesium 2.2 04/21/21 06:18: POC Glucose 110 04/21/21 11:37: POC Glucose 112 H 04/21/21 16:02: POC Glucose 105 Cardiology Labs/Tests 04/21/21 05:04: WBC 10.5, RBC 2.92 L, Hgb 8.9 L, Hct 29.4 L, MCV 100.7 H, MCH 30.5, MCHC 30.3 L, Plt Count 323, MPV 10.4, Immature Gran % (Auto) 0.300, Neut % (Auto) 67.9, Lymph % (Auto) 18.2 L, [place] % (Auto) 10.0, Eos % (Auto) 3.3, Baso % (Auto) 0.3, Absolute Neuts (auto) 7.1, Nucleated RBC % 0 04/21/21 05:04: Magnesium 2.2 Rhythm: Sinus rhythm Physical Exam Narrative The patient is currently in the ICU mechanically intubated and ventilated. HEENT normocephalic and head/scalp atraumatic Eyes PERRL Neck no JVD Resp Resp Narrative: No acute rales/rhonchi appreciated Cardio regular rate, regular rhythm, S1 normal heart sound and S2 normal heart sound GI normal to inspection, nondistended, normoactive bowel sounds Extremity no pedal edema Skin no rashes or lesions noted Assessment & Plan Assessment/Plan (1) Cardiopulmonary arrest with successful resuscitation: PLAN: The patient is reported as having a cardiopulmonary arrest with findings of PEA. The etiology is unclear at this time. There is some concern as to whether or not she may have experienced a seizure that led to this event. She has had follow-up radiologic studies that have demonstrated concerns of cerebral edema. As part of her ongoing evaluation, as she appears to be symptomatically and hemodynamically improving from her original event, consideration has been given to further cardiac diagnostic evaluation with diagnostic cardiac catheterization. The procedure and risks have been discussed with her. She was agreeable to this approach. (2) Acute respiratory failure with hypoxia and hypercapnia: PLAN: The patient was reported as having an acute respiratory failure event. She is being evaluated by internal medicine and pulmonology/critical care medicine. She has now been successfully extubated. She is now in the PCU. (3) Restrictive lung disease: PLAN: The patient is reported as having a history of underlying restrictive lung disease thought possibly secondary to her morbid obesity. She has been evaluated by pulmonology in the past. It is Unclear whether this is a contributing component to her cardiopulmonary arrest event. (4) LEIGH ANN (acute kidney injury): PLAN: The patient had what appeared to be an acute elevation of her creatinine level. This may be secondary to her previous event. Her renal function will need to be followed. (5) Abnormal cardiac enzyme level: PLAN: She does have abnormal cardiac enzymes. Again it is unclear whether this may represent a primary event versus a secondary event secondary to her report of hypoxemia requiring mechanical intubation/ventilation. Her echocardiogram is as noted. As noted above, as she appears to be clinically improving and hemodynamically stable a recommendation has been made for further evaluation with diagnostic cardiac catheterization. (6) Diastolic dysfunction: PLAN: Based upon her previous transthoracic echocardiogram there was concerns of impaired relaxation on the left ventricle compatible with decreased diastolic compliance. According to her family members present there is been no report of any acute CHF events. She has been on medical management. (7) Anemia: PLAN: She does have anemia. Her H&H remains low. The etiology is unclear at this time. Will need to be followed for any obvious hemorrhagic events. This concern could impact her antiplatelet/anticoagulant therapy. She will need to be followed for any worsening anemia that would require additional evaluation and/or PRBC transfusion. (8) HLD (hyperlipidemia): QUALIFIERS: Hyperlipidemia type: unspecified Qualified Code(s): E78.5 - Hyperlipidemia, unspecified PLAN: She has a history of hyperlipidemia and appears she has been on lipid-lowering therapy. (9) Essential hypertension: PLAN: She has a history of hypertension and it appears she has been on multiple antihypertensive agents. (10) Breast infection: PLAN: She has undergone a diagnosis of breast carcinoma and a recent lumpectomy and a subsequent adverse event to her wound and subsequent infection. She has been on antibiotic biotic therapy. It is unclear whether this infectious disease process contributed to her acute cardiopulmonary arrest situation. She will need continued evaluation care per internal medicine and other specialties/subspecialties as needed such as surgery and infectious disease, etc. This finding has to be taken into consideration with respect to any additional cardiology procedures especially invasive procedures such as cardiac cath, etc.. (11) DVT (deep vein thrombosis) in : PLAN: It appears her venous duplex study was positive. The patient states that she takes her anticoagulant therapy as prescribed although she states it was temporarily interrupted for her breast surgery. She believes she was on medical management with Lovenox during that time. She is continuing anticoagulant therapy. This will be briefly interrupted for her diagnostic cardiac catheterization with bridging anticoagulant therapy with enoxaparin/Lovenox. (12) Morbid obesity: PLAN: Unfortunately she is morbidly obese. It appears that this has been a contributing factor to her underlying pulmonary disease findings in the past. Addt'l Comments The patient's case has been reviewed with the patient and Dr. Barker This note was generated using a voice recognition system and there may be incorrect words, spelling or punctuation that were not noted when reviewing the office note prior to saving.
[2021-04-21] MEDS: Enoxaparin 150 MG/ML Syringe 130 MG SC (18:43)
--- NOTE | 2021-04-21 21:48 | RAD_ITS ---
STUDY: X-RAY CHEST REASON FOR EXAM: Female, 55 years old. Cough TECHNIQUE: Portable, upright, AP chest radiograph COMPARISON: 04/16/2021 FINDINGS: The lungs are clear and under expanded. There is no demonstrated pleural abnormality. Normal size heart. Normal mediastinum and timi. Normal visualized pulmonary arteries. Normal visualized aortic arch and descending thoracic aorta. Normal visualized thoracic spine. Normal visualized ribs, clavicles, and shoulders. There is no demonstrated abnormality of the visualized soft tissue structures of the upper abdomen. RAD/Chest 1 View (Portable) IMPRESSION: Underexpanded lungs may be due to respiratory phase versus basilar atelectasis. Electronically Signed: Kee Boggs MD at 22:13 EDT Tel , Service support ,
--- NOTE | 2021-04-21 21:52 | PCM.HOSP.N ---
Hospitalist Note Notified by Ivy STEWART patient coughing up small amount of blood with a small clot noted. Will obtain chest x-ray and CBC. Patient recently started on Xarelto due to finding of left lower leg DVT. Discussed with Dr. Ocampo who is agreeable to plan.
[2021-04-21] MEDS: Atorvastatin Calcium 80 MG Tablet PO (22:02)
[2021-04-21 22:05] LABS: Bedside Glucose 90 mg/dL (70-110)
[2021-04-21 22:12] LABS: Absolute Lymphocyte Count 2.65 X10^3/uL (0.83-4.51); Absolute Neutrophil Count 7.9 X10^3/uL (2.0-7.7); Basophil# 0.04 X10^3/uL; Basophil% 0.3 % (0-1); Eosinophil# 0.36 X10^3/uL; Eosinophils% 2.9 % (0-5); Hematocrit 32.8 % (37-47); Hemoglobin 10.1 g/dL (12.0-15.0); Lymphocyte # 2.65 X10^3/ul (0.83-4.51); Lymphocyte % 21.7 % (19-41); Mean Corp Hgb Conc 30.8 g/dL (32-36); Mean Corpuscular Hgb 30.3 pg (27.0-32.0); Mean Corpuscular Volume 98.5 fL (81-99); Mean Platelet Vol. 10.2 fl (6.2-12.0); Monocyte% 9.8 % (0-10); NRBC Flagged by Analyzer 0 % (0-5); Neutrophil # 7.94 X10^3/uL (2.7-7.7); Platelet Count 359 K/mm3 (150-450); RBC Distribution Width CV 12.7 % (11.6-14.6); RBC Distribution Width SD 45.6 fl (35.1-43.9); Red Blood Count 3.33 M/mm3 (4.2-5.4); White Blood Count 12.2 K/mm3 (4.4-11.0)
[2021-04-22] VITALS (19 sets, daily range): BP systolic 113–158; BP diastolic 66–88; PULSE 52–64; RESP 12–22; TEMP 36.4–36.6; O2SAT 95–100
[2021-04-22 01:31] LABS: International Normalized Ratio 1.4
[2021-04-22 01:33] LABS: Partial Thromboplast Time 38.3 Seconds (24.1-36.2)
[2021-04-22 06:30] LABS: Bedside Glucose 114 mg/dL (70-110)
[2021-04-22] MEDS: Metoprolol(XL)Succ 100 MG Tablet PO (06:34)
[2021-04-22] MEDS: Clopidogrel Bisulfate 75 MG Tablet PO (06:34)
[2021-04-22] MEDS: Losartan Potassium 100 MG Tablet PO (06:34)
[2021-04-22 07:35] LABS: Absolute Lymphocyte Count 2.01 X10^3/uL (0.83-4.51); Absolute Neutrophil Count 7.8 X10^3/uL (2.0-7.7); Basophil# 0.04 X10^3/uL; Basophil% 0.4 % (0-1); Eosinophil# 0.38 X10^3/uL; Eosinophils% 3.4 % (0-5); Hematocrit 31.5 % (37-47); Hemoglobin 9.5 g/dL (12.0-15.0); Lymphocyte # 2.01 X10^3/ul (0.83-4.51); Mean Corp Hgb Conc 30.2 g/dL (32-36); Mean Corpuscular Hgb 29.7 pg (27.0-32.0); Mean Corpuscular Volume 98.4 fL (81-99); Mean Platelet Vol. 10.6 fl (6.2-12.0); Monocyte# 0.95 X10^3/uL; Monocyte% 8.5 % (0-10); NRBC Flagged by Analyzer 0 % (0-5); Neutrophil # 7.75 X10^3/uL (2.7-7.7); Neutrophil % 69.2 % (47-70); Platelet Count 338 K/mm3 (150-450); RBC Distribution Width CV 12.6 % (11.6-14.6); RBC Distribution Width SD 45.4 fl (35.1-43.9); White Blood Count 11.2 K/mm3 (4.4-11.0)
--- NOTE | 2021-04-22 08:05 | CL.D_ITS ---
Patient Name: LUIS A CUMMINGS Study Date: 04/22/2021 Performing: Kee Bagley MD Ht: 69 inches 175 cm : 1965 Wt: 275.9 lbs 125 kg Age: 55 Gender: female BSA: 2.36 PROCEDURE(S) PERFORMED [id number]/COR/LV CLINICAL PROFILE AND INDICATIONS Indications: Other: s/p cardiopulmonary arrest Heart Failure: None Stress/Imaging Stress/Image Study Performed: No Angina Classification Anginal Classification w/in 2 Weeks: No symptoms CAD Presentations: No Sxs, no angina. CONCLUSIONS Elevated Left Ventricular End Diastolic Pressure Normal LV size, wall motion,and systolic function LVEF: by LV gram 60 % Single vessel CAD of the LAD: mild luminal irregularities RECOMMENDATIONS Risk factor modification Medical therapy DESCRIPTION OF PROCEDURE The patient arrived to the procedure lab. The risks and benefits of the procedure as well as a full d escription of our services here and current unavailability of surgical backup were fully explained to the patient and/or their significant other prior to the catheterization. The Timeout was completed, verifying the correct patient and procedure. The patient's procedural site was prepped and draped in the usual fashion. Local anesthetic was given subcutaneously to right radial region with Lidocaine 2% . Using a modified Seldinger technique, arterial access was obtained via the right radial artery, a 6 Fr sheath was inserted. Left Coronary Artery selective angiography was performed in multiple views u sing a 5 Fr. 4.0 [place] catheter. Right Coronary Artery selective angiography was then performed in mu ltiple views using a 5 Fr. 4.0 [place] catheter. Left Ventriculography was performed in SAN projection using a 5 Fr. Pigtail catheter. LV to AO pullback pressures were then recorded.The arterial sheath was pulled and a TR Band was applied for hemostasis. 10cc of air CORONARY ANGIOGRAPHY DOMINANCE: Right Dominant LEFT HEART ASSESSMENT Left Ventricular Ejection Fraction: by LV Gram 60 % Normal LV wall motion Elevated Left Ventricular End Diastolic Pressure LVEDP: 17 mmHg LEFT MAIN: Angiographically normal LEFT ANTERIOR DESCENDING ARTERY: MID LAD: Mild luminal irregularities CIRCUMFLEX ARTERY: Angiographically normal RIGHT CORONARY ARTERY: Angiographically normal AORTIC ROOT: Angiographically normal COMPLICATIONS No Complications PROCEDURE MEDICATIONS Fentanyl 50 mcg IV Versed 1 mg IV Fentanyl 50 mcg IV Versed 1 mg IV Oxygen: 2 L/min via nasal cannula Heparin given IA 04/22/2021 07:29:50 Verapamil 2.5mg,3000 units of Heparin given IA 04/22/2021 07:29:50 SUMMARY OF HEMODYNAMIC DATA Time AIR REST ECG 07:14:58 AO 114/61 (85) SA 07:32:27 LV 113/-3, 16 07:41:33 LV 112/-2, 17 07:41:39 LV 107/-1, 19 07:42:32 LVp 120/-8, 21 07:42:44 AOp 119/63 (85) 07:42:49 Signed By Kee Bagley MD On 04/22/2021 08:04:04 Kee Bagley MD
[2021-04-22 08:09] LABS: ALB/GLOB Ratio 0.6 RATIO (0.9-2.4); AST(SGOT) 29 U/L (15-37); Alanine Aminotransfer ALT/SGPT 38 U/L (13-56); Albumin, Serum 2.7 g/dL (3.2-5.0); Alkaline Phosphatase 132 U/L (45-117); Anion Gap 9 (5-15); BUN 22 mg/dL (7-18); BUN/Creat Ratio 44.1 RATIO (10-20); Calcium,Total 9.5 mg/dL (8.5-10.1); Chloride 97 mmol/L (98-107); EST Glomerular Filtration Rate 136 mL/min (>60); Est Glom Filt Rate - Afr Amer 165 mL/min (>60); Estimated Creatinine Clearance 132.86 ml/min; Globulin 4.9 g/dL (2.2-4.2); Glucose 107 mg/dL (74-106); Potassium 3.4 mmol/L (3.5-5.1); Protein, Total 7.6 g/dL (6.4-8.2); Sodium Level 138 mmol/L (136-145)
[2021-04-22] MEDS: 0.9% Normal Saline 1,000 ML 75 ML IV (08:13)
[2021-04-22] MEDS: Spironolactone 50 MG Tablet PO (08:18)
[2021-04-22] MEDS: Magnesium Chloride 64 MG Delay Rel.Tablet PO (08:19)
[2021-04-22] MEDS: Venlafaxine XR 75 MG Capsule PO (08:19)
[2021-04-22] MEDS: Furosemide 40 MG/4 ML Vial IV ×3 (08:19→17:00)
[2021-04-22] MEDS: clonazePAM 0.5 MG Tablet PO (08:22)
--- NOTE | 2021-04-22 10:14 | PCM.PN.CARD ---
Subjective Subjective The patient is now status post diagnostic cardiac catheterization. She has no new acute complaints. Objective Data Vital Signs: Vital Signs Temp Pulse Resp BP Pulse Ox 97.9 F 56 L 16 135/68 H 100 04/22/21 08:30 04/22/21 09:50 04/22/21 09:50 04/22/21 09:50 04/22/21 09:50 Oxygen Flow Rate (L/min) 2 Oxygen Delivery Method Nasal Cannula Weight: 275 lb 2.19 oz Body Mass Index (BMI) 42.7 Intake & Output: Intake and Output for Last 24 Hours 04/20/21 04/21/21 04/22/21 23:59 23:59 23:59 Intake Total 1020 / 1020 1080 / 1200 337.5 / 337.5 Output Total 1600 / 1600 300 / 300 Balance -580 / -580 780 / 900 337.5 / 337.5 Lab / Micro Data Result Diagrams: 04/22/21 06:50 04/22/21 06:50 Labs: Laboratory Results - last 24 hr 04/21/21 11:37: POC Glucose 112 H 04/21/21 16:02: POC Glucose 105 04/21/21 21:41: POC Glucose 90 04/21/21 22:04: WBC 12.2 H, RBC 3.33 L, Hgb 10.1 L, Hct 32.8 L, MCV 98.5, MCH 30.3, MCHC 30.8 L, RDW Std Deviation 45.6 H, RDW Coeff of Immanuel 12.7, Plt Count 359, MPV 10.2, Immature Gran % (Auto) 0.300, Neut % (Auto) 65.0, Lymph % (Auto) 21.7, Bollinger % (Auto) 9.8, Eos % (Auto) 2.9, Baso % (Auto) 0.3, Absolute Neuts (auto) 7.9 H, Absolute Lymphs (auto) 2.65, Nucleated RBC % 0 04/22/21 01:15: PT 16.0 H, INR 1.4, APTT 38.3 H 04/22/21 06:16: POC Glucose 114 H 04/22/21 06:50: WBC 11.2 H, RBC 3.20 L, Hgb 9.5 L, Hct 31.5 L, MCV 98.4, MCH 29.7, MCHC 30.2 L, RDW Std Deviation 45.4 H, RDW Coeff of Immanuel 12.6, Plt Count 338, MPV 10.6, Immature Gran % (Auto) 0.500, Neut % (Auto) 69.2, Lymph % (Auto) 18.0 L, Bollinger % (Auto) 8.5, Eos % (Auto) 3.4, Baso % (Auto) 0.4, Absolute Neuts (auto) 7.8 H, Absolute Lymphs (auto) 2.01, Nucleated RBC % 0 04/22/21 06:50: Sodium 138, Potassium 3.4 L, Chloride 97 L, Carbon Dioxide 32.0, Anion Gap 9, BUN 22 H, Creatinine 0.50 L, Estim Creat Clear Calc 132.86, Est GFR (MDRD) Af Amer 165, Est GFR (MDRD) Non-Af 136, BUN/Creatinine Ratio 44.1 H, Glucose 107 H, Calcium 9.5, Total Bilirubin 0.30, AST 29, ALT 38, Alkaline Phosphatase 132 H, Total Protein 7.6, Albumin 2.7 L, Globulin 4.9 H, Albumin/Globulin Ratio 0.6 L Cardiology Labs/Tests 04/21/21 22:04: WBC 12.2 H, RBC 3.33 L, Hgb 10.1 L, Hct 32.8 L, MCV 98.5, MCH 30.3, MCHC 30.8 L, Plt Count 359, MPV 10.2, Immature Gran % (Auto) 0.300, Neut % (Auto) 65.0, Lymph % (Auto) 21.7, Bollinger % (Auto) 9.8, Eos % (Auto) 2.9, Baso % (Auto) 0.3, Absolute Neuts (auto) 7.9 H, Nucleated RBC % 0 04/22/21 01:15: PT 16.0 H, INR 1.4, APTT 38.3 H 04/22/21 06:50: WBC 11.2 H, RBC 3.20 L, Hgb 9.5 L, Hct 31.5 L, MCV 98.4, MCH 29.7, MCHC 30.2 L, Plt Count 338, MPV 10.6, Immature Gran % (Auto) 0.500, Neut % (Auto) 69.2, Lymph % (Auto) 18.0 L, Bollinger % (Auto) 8.5, Eos % (Auto) 3.4, Baso % (Auto) 0.4, Absolute Neuts (auto) 7.8 H, Nucleated RBC % 0 04/22/21 06:50: Sodium 138, Potassium 3.4 L, Chloride 97 L, Carbon Dioxide 32.0, Anion Gap 9, BUN 22 H, Creatinine 0.50 L, Est GFR (MDRD) Af Amer 165, Est GFR (MDRD) Non-Af 136, BUN/Creatinine Ratio 44.1 H, Glucose 107 H, Calcium 9.5, Total Bilirubin 0.30 Rhythm: Sinus rhythm Cardiac Cath: CONCLUSIONS Elevated Left Ventricular End Diastolic Pressure Normal LV size, wall motion,and systolic function LVEF: by LV gram 60 % Single vessel CAD of the LAD: mild luminal irregularities RECOMMENDATIONS Risk factor modification Medical therapy DESCRIPTION OF PROCEDURE The patient arrived to the procedure lab. The risks and benefits of the procedure as well as a full description of our services here and current unavailability of surgical backup were fully explained to the patient and/or their significant other prior to the catheterization. The Timeout was completed, verifying the correct patient and procedure. The patient's procedural site was prepped and draped in the usual fashion. Local anesthetic was given subcutaneously to right radial region with Lidocaine 2%. Using a modified Seldinger technique, arterial access was obtained via the right radial artery, a 6Fr sheath was inserted. Left Coronary Artery selective angiography was performed in multiple views using a 5 Fr. 4.0 [facility] catheter. Right Coronary Artery selective angiography was then performed in multiple views using a 5 Fr. 4.0 [facility] catheter. Left Ventriculography was performed in SAN projection using a 5 Fr. Pigtail catheter. LV to AO pullback pressures were then recorded.The arterial sheath was pulled and a TR Band was applied for hemostasis. 10cc of air CORONARY ANGIOGRAPHY DOMINANCE: Right Dominant LEFT HEART ASSESSMENT Left Ventricular Ejection Fraction: by LV Gram 60 % Normal LV wall motion Elevated Left Ventricular End Diastolic Pressure LVEDP: 17 mmHg LEFT MAIN: Angiographically normal LEFT ANTERIOR DESCENDING ARTERY: MID LAD: Mild luminal irregularities CIRCUMFLEX ARTERY: Angiographically normal RIGHT CORONARY ARTERY: Angiographically normal AORTIC ROOT: Angiographically normal Radiography Diagnostic Testing: Radiology Impression Chest X-Ray 04/21/21 21:48 IMPRESSION: Underexpanded lungs may be due to respiratory phase versus basilar atelectasis. Electronically Signed: Kee Boggs MD at 22:13 EDT Tel , Service support , Physical Exam Narrative The patient is currently in the ICU mechanically intubated and ventilated. HEENT normocephalic and head/scalp atraumatic Eyes PERRL Neck no JVD Resp Resp Narrative: No acute rales/rhonchi appreciated Cardio regular rate, regular rhythm, S1 normal heart sound and S2 normal heart sound GI normal to inspection, nondistended, normoactive bowel sounds Extremity no pedal edema Peripheral Pulses: Yes radial pulses present right 2+ Skin no rashes or lesions noted Assessment & Plan Assessment/Plan (1) Cardiopulmonary arrest with successful resuscitation: PLAN: The patient is reported as having a cardiopulmonary arrest with findings of PEA. The etiology is unclear at this time. There is some concern as to whether or not she may have experienced a seizure that led to this event. There is some concern based upon her underlying pulmonary history as to whether or not hypoxemia may have led to her event. From a cardiac standpoint she has undergone noninvasive and now invasive evaluation. She has had preserved LV systolic function, and no angiographically significant appearing CAD, no hemodynamically significant valvular heart disease detected. Also she has been monitored with cardiac telemetry monitoring with no obvious findings of underlying cardiac dysrhythmias. As previously noted her initial ECG suggested a somewhat prolonged QT interval, this was during her acute event, as she was stabilized her follow-up ECGs demonstrated normalization of her QT interval. Thus it is not clear that she has a primary underlying electrophysiologic disturbance to lead to her event. From a cardiac standpoint she should continue cardiovascular evaluation care for her cardiovascular risk factors. (2) Acute respiratory failure with hypoxia and hypercapnia: PLAN: The patient was reported as having an acute respiratory failure event. She is being evaluated by internal medicine and pulmonology/critical care medicine. She has now been successfully extubated. She is now in the PCU. (3) Restrictive lung disease: PLAN: The patient is reported as having a history of underlying restrictive lung disease thought possibly secondary to her morbid obesity. She has been evaluated by pulmonology in the past. It is Unclear whether this is a contributing component to her cardiopulmonary arrest event. (4) LEIGH ANN (acute kidney injury): PLAN: The patient had what appeared to be an acute elevation of her creatinine level. This may be secondary to her previous event. Her renal function will need to be followed. (5) Abnormal cardiac enzyme level: PLAN: She does have abnormal cardiac enzymes. Her echocardiogram is as noted. Her cardiac catheterization does not appear to demonstrate any angiographically significant appearing CAD. Thus it appears her cardiac enzymes are a type II event secondary to her acute event/concerns of hypoxemia. (6) Diastolic dysfunction: PLAN: Based upon her previous transthoracic echocardiogram there was concerns of impaired relaxation on the left ventricle compatible with decreased diastolic compliance. According to her family members present there is been no report of any acute CHF events. She has been on medical management. (7) Anemia: PLAN: She does have anemia. Her H&H remains low. The etiology is unclear at this time. This concern could impact her antiplatelet/anticoagulant therapy. She will need to be followed for any worsening anemia that would require additional evaluation and/or PRBC transfusion. (8) HLD (hyperlipidemia): QUALIFIERS: Hyperlipidemia type: unspecified Qualified Code(s): E78.5 - Hyperlipidemia, unspecified PLAN: She has a history of hyperlipidemia and appears she has been on lipid-lowering therapy. (9) Essential hypertension: PLAN: She has a history of hypertension and it appears she has been on multiple antihypertensive agents. (10) Breast infection: PLAN: She has undergone a diagnosis of breast carcinoma and a recent lumpectomy and a subsequent adverse event to her wound and subsequent infection. She has been on antibiotic biotic therapy. It is unclear whether this infectious disease process contributed to her acute cardiopulmonary arrest situation. She will need continued evaluation care per internal medicine and other specialties/subspecialties as needed such as surgery and infectious disease, etc. This finding has to be taken into consideration with respect to any additional cardiology procedures especially invasive procedures such as cardiac cath, etc.. (11) DVT (deep vein thrombosis) in : PLAN: It appears her venous duplex study was positive. The patient states that she takes her anticoagulant therapy as prescribed although she states it was temporarily interrupted for her breast surgery. She believes she was on medical management with Lovenox during that time. She is continuing anticoagulant therapy. As long as her cardiac catheterization site remained stable she should be able to resume her anticoagulant therapy later today. (12) Morbid obesity: PLAN: Unfortunately she is morbidly obese. It appears that this has been a contributing factor to her underlying pulmonary disease findings in the past. Addt'l Comments The case was discussed and reviewed with the patient. The aforementioned information was conveyed to the [facility] staff. This note was generated using a voice recognition system and there may be incorrect words, spelling or punctuation that were not noted when reviewing the office note prior to saving.
[2021-04-22] MEDS: Ceftriaxone 1 GM/50 ML BAG IV (10:48)
[2021-04-22 11:16] LABS: Bedside Glucose 155 mg/dL (70-110)
--- NOTE | 2021-04-22 11:16 | CASEMGMT ---
SW attempted to call patient's sister in law again, but she did not answer. SW will speak with patient. Kathryn Corral MSW JAE
--- NOTE | 2021-04-22 12:17 | CASEMGMT ---
SW called patient's sister in law and let her know [facility] declined patient. WILNER told her the other 2 facilities left in [place] as she wanted her to stay nearby. She said [facility] and then [facility]. WILNER faxed referral to [facility] and also called regarding referral. SW did hear back from [facility] and they can accept patient. SW will obtain level of care as soon as putrolanda in Transfer to Extended Care. WILNER did notify patient SW needs this. SW called patient's sister in law and let her know. She was confused as patient just called her and told her she is being discharged home today. SW told her that sometimes the doctor's just use home as a generic term. SW told her SW will talk with patient. SW spoke with patient and let her know that she will be going to [facility] today. She asked if she was going home and SW told her she is too weak to go home right now. She is in agreement with going to [facility]. Plan: [facility] pending level of care which will be received today. Kathryn Corral COMMUNICATIONS ELECTRICIAN SUPERVISOR JAE
--- NOTE | 2021-04-22 12:45 | PCM.TXEXTCAR ---
Diet 04/22/21 07:54 Diet: Cardiac - Heart Healthy Food consistency:: Pureed Liquid Consistency:: Regular/Thin Is pt able to select menu?: No Diet Comments: Total Feed, all liquids by straw, small bites/sips, one sip at a time Routine Orders/Code Status Suppository Type: Dulcolax 10mg Suppository Frequency: Daily PRN Wound(s) L upper arm: Wound Type: Puncture Under LT Breast: Wound Type: Surgical Incision Dressing Change: Dry Sterile Dressing mid chest: Wound Type: Abrasion Therapies Weight Bearing: Weight bearing as tolerated Extremity Affected:: Bilateral Lower Physical Therapy: Eval and Treat Occupational Therapy: Eval and Treat Speech Therapy: Eval and Treat Problem/Diagnosis (1) Cardiopulmonary arrest with successful resuscitation: Status: Acute (2) Acute respiratory failure with hypoxia and hypercapnia: Status: Acute (3) Restrictive lung disease: Status: Chronic (4) LEIGH ANN (acute kidney injury): Status: Acute (5) Abnormal cardiac enzyme level: Status: Acute (6) Diastolic dysfunction: Status: Chronic (7) Anemia: Status: Acute (8) HLD (hyperlipidemia): Status: Chronic (9) Essential hypertension: Status: Acute Comment: controlled with meds (10) Breast infection: Status: Acute (11) DVT (deep vein thrombosis) in : Status: Acute (12) Morbid obesity: Status: Chronic Allergies/Procedures Done in Hospital Allergies aspirin Allergy (Verified 04/04/21 10:33) Hives ibuprofen Allergy (Verified 04/04/21 10:33) Hives ketorolac tromethamine [From Toradol] Allergy (Verified 04/04/21 10:33) Angioedema meperidine HCl [From Demerol] Allergy (Verified 04/04/21 10:33) Other nitroglycerin Allergy (Verified 04/04/21 10:33) Angioedema HEADACHE, TONGUE SWELLING. nut - unspecified Allergy (Verified 04/04/21 10:33) Hives Penicillins [PCN] Allergy (Verified 04/04/21 10:33) Hives tramadol HCl [From Ultram] Allergy (Verified 04/04/21 10:33) Angioedema BENTYL Allergy (Uncoded 04/04/21 10:33) Itching Type of Care/Length of Stay Estimated LOS: Convalescent Care Less Than 30 days Type of Care Needed: Skilled Rehab Potential: Good Prognosis: Good Additional Orders/Day of Discharge Day of Discharge: 04/22/21 Dietary and Speech Recommendations Dietitian Recommendations/Changes: recommend cardiac diet, consistency per MERCHANDISING ASSISTANT when PO diet is appropriate. Discharge Plan Admission Admit Date/Time: 04/15/21 21:11 Primary Reason for Your Visit: Status post cardiopulmonary arrest, PEA Attending Provider: Nick Romano Primary Care Provider: Alvarez Montanez Consulting Providers: Kee Bagley ; Get Christianson Discharge Orders/Prescriptions Prescriptions: New levofloxacin 500 mg tablet 500 mg PO DAILY Qty: 3 RF: 0 Continued omeprazole 40 mg capsule,delayed release(DR/EC) 40 mg PO DAILY RF: 0 albuterol sulfate [ProAir HFA] 90 mcg/actuation HFA aerosol inhaler 2 puff INHALATION Q4H PRN (Reason: shortness of breath or wheezing) RF: 0 atorvastatin 80 mg tablet 80 mg PO DAILY RF: 0 venlafaxine 75 mg capsule,extended release 24hr 75 mg PO DAILY RF: 0 levetiracetam 500 MG tablet 500 mg PO BID RF: 0 clonazepam 0.5 mg Tablet,Disintegrating 0.5 mg PO BID RF: 0 magnesium 200 mg Tablet 200 mg PO DAILY RF: 0 Dulera 100-5 mcg/actuation Hfa Aerosol Inhaler 2 puff INHALATION Q12H PRN (Reason: sob) RF: 0 metoprolol succinate 100 mg tablet extended release 24 hr 100 mg PO QHS Qty: 0 RF: 0 oxycodone 5 mg capsule 5 mg PO Q8H PRN (Reason: pain (scale score 7-10)) 5 Days Qty: 10 RF: 0 losartan 100 mg tablet 100 mg PO DAILY Qty: 0 RF: 0 spironolactone 50 mg tablet 50 mg PO DAILY Qty: 0 RF: 0 rivaroxaban 20 mg tablet 20 mg PO DAILY Qty: 90 RF: 3 Changed furosemide 20 mg tablet 40 mg PO DAILY Qty: 0 RF: 0 Referrals / Follow Up: Get Christianson DO [STAFF PHYSICIAN] - Within 2 Weeks (for COPD/Restristive lung disease) Alvarez Montanez MD [Primary Care Provider] - Disposition Disposition (needs filled in before D/C Order can be placed): Residential Facility
--- NOTE | 2021-04-22 12:46 | PCM.DC.SUM ---
Providers Date of Admission: 04/15/21 Primary Care Physician: Dr. Alvarez Montanez MD Consultations 04/15/21 22:34 Consult: Flute Polisher / Pulmonary Medicine Routine Consulting Provider: Get Christianson Reason for Consult: CPA w/ ROSC, intubated EMERGENT Consult: No Notified: Yes Date Notified: 04/15/21 Time Notified: 21:17 Method of Notification: cortexst Consult: Onc/Wound/mechanical product engineer Routine Comment: 04/16/21 04:37 Consult: Cardiology Routine Consulting Provider: Kee Bagley Reason for Consult: Cardiopulmonary arrest, unclear etiology, ROSC EMERGENT Consult: No Notified: Yes Date Notified: 04/16/21 Time Notified: 04:38 Method of Notification: ortext Reason For Visit: CARDIOPULMONARY ARREST WITH ROSC Diagnosis Discharge Diagnosis (1) Cardiopulmonary arrest with successful resuscitation: Status: Acute Code(s): I46.9 - Cardiac arrest, cause unspecified (2) Acute respiratory failure with hypoxia and hypercapnia: Status: Acute Code(s): J96.01 - Acute respiratory failure with hypoxia; J96.02 - Acute respiratory failure with hypercapnia (3) Restrictive lung disease: Status: Chronic Code(s): J98.4 - Other disorders of lung (4) LEIGH ANN (acute kidney injury): Status: Acute Code(s): N17.9 - Acute kidney failure, unspecified (5) Abnormal cardiac enzyme level: Status: Acute Code(s): R74.8 - Abnormal levels of other serum enzymes (6) Diastolic dysfunction: Status: Chronic Code(s): I51.9 - Heart disease, unspecified (7) Anemia: Status: Acute Code(s): D64.9 - Anemia, unspecified (8) HLD (hyperlipidemia): Status: Chronic Code(s): E78.5 - Hyperlipidemia, unspecified Qualifiers: Hyperlipidemia type: unspecified Qualified Code(s): E78.5 - Hyperlipidemia, unspecified (9) Essential hypertension: Status: Acute Code(s): I10 - Essential (primary) hypertension (10) Breast infection: Status: Acute Code(s): N61.0 - Mastitis without abscess (11) DVT (deep vein thrombosis) in : Status: Acute Code(s): O22.30 - Deep phlebothrombosis in , unspecified trimester (12) Morbid obesity: Status: Chronic Code(s): E66.01 - Morbid (severe) obesity due to excess calories Medications at Discharge Home Medications levetiracetam 500 mg PO BID 11/29/15 albuterol sulfate 90 mcg/actuation aerosol inhaler 2 puff INHALATION Q4H PRN g 08/01/17 omeprazole 40 mg capsule,delayed release 40 mg PO DAILY 08/01/17 rivaroxaban 20 mg tablet 20 mg PO DAILY #90 tab 03/26/19 atorvastatin 80 mg tablet 80 mg PO DAILY 03/02/21 venlafaxine 75 mg capsule,extended release 24 hr 75 mg PO DAILY 03/02/21 Dulera 2 puff INHALATION Q12H PRN 03/15/21 clonazepam 0.5 mg PO BID 03/15/21 magnesium 200 mg PO DAILY 03/15/21 furosemide 40 mg PO DAILY #0 tab 04/22/21 levofloxacin 500 mg PO DAILY #3 tablet 04/22/21 losartan 100 mg PO DAILY #0 tab 04/22/21 metoprolol succinate 100 mg PO QHS #0 tab 04/22/21 oxycodone 5 mg PO Q8H PRN 5 Days #10 cap 04/22/21 spironolactone 50 mg PO DAILY #0 tab 04/22/21 Hospital Course Summary of Care Provided Minutes Spent on Discharge: 35 Hospital Course: This 55-year-old female with multiple comorbidities was admitted in ICU after cardiac arrest, PEA status post 2 rounds of CPR, ACLS protocol with ROSC and immediate intubation in ED. Her further hospital course and management as follows Acute on chronic hypercapnic and hypoxic respiratory failure status post cardiac arrest, PEA rhythm: Patient was admitted in ICU. Patient also found cerebral edema mild primary (suffered during PEA arrest. Patient responded well. She is on Keppra for history of seizure disorder and continued. Patient also has history of COPD/restrictive lung disease probably secondary to chronic tobacco use. Patient also has obstructive sleep apnea continue nocturnal BiPAP at . Follow-up in pulmonary clinic. Patient has history of chronic HFpEF, and chronic diastolic heart failure. Continue Lasix and spironolactone with monitoring of electrolytes. Patient had cardiac cath which shows mild luminal irregularity with no significant obstructive coronary heart disease. Patient also found acute DVT of left lower extremity with history of DVT: On Xarelto. Patient on 2 L of oxygen. Klebsiella/group B strep pneumonia: Sputum culture shows 1+ Klebsiella pneumoniae and 2+ Streptococcus atelectatic. On IV ceftriaxone. Discharged on Levaquin to complete a total of 7 days. Acute metabolic encephalopathy probably after cardiac arrest: Improved and baseline. CT head on 04/18 showed increased intracranial cerebral edema with decreased size of ventricles and decreased size of gyral markings. For CT head on 04/15 reported normal unenhanced. Chronic anemia/anemia of chronic disease -Hemoglobin is relatively stable at this time History of PE/DVT -Continue Xarelto Hypokalemia and hypomagnesemia: Resolved Recent diagnosis of breast cancer: -Recently underwent biopsy by Dr. 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 -Is being treated for a postoperative abscess. On antibiotic. Chronic anemia -Hemoglobin is stable -Continue to monitor with full anticoagulation Hypothyroidism -Continue home Synthroid History of seizure disorder -Continue Keppra Hypertension and dyslipidemia: On atorvastatin and home antihypertensives Morbid obesity -Recommend weight loss -Complicates overall treatment, prognosis, and outcomes Anxiety/depression -Continue home medications Chronic opiate/benzo use -Patient is going to [facility] therefore prescription for home oxycodone given. CODE STATUS -Full code Discharge medication reconciliation done. Discharge follow-up instructions completed. Discharge process discussed with the patient and all questions were answered to patient's satisfaction. Total time spent, exact 35 minutes on discharge meds reconciliation, examination, coordination of care with nurses and ancillary staff, review of imaging and blood test and discussion with the patient on follow-up instructions Physical Exam Narrative Patient complain of left calf Pain from DVT. Patient tolerated cardiac cath through right radial artery approach. Physical exam: General: Alert, Oriented x3, Cooperative HEENT: Atraumatic, PERRLA, EOMI, Normocephalic Oral: No Gingival or Mucosal Lesions/ Ulcerations Neck: Supple, No JVD, Negative Carotid Bruits Lungs: Air entry diminished in bilateral lung bases. No crepitation/rhonchi Cardiovascular: Regular rate, Regular Rhythm, Normal S1, Normal S2, No murmurs Abdomen: Bowel Sounds Present, Soft, Non Tender, Non-Distended : No renal angle tenderness. No suprapubic tenderness. Extremities: No edema, Capillary Refill Less than 3 Seconds Skin: No rashes, No breakdown Musculoskeletal: Mild tenderness to left calf. No redness, induration. Neurological: Cranial nerves II-XII grossly intact, DTR 2+/4 and Symmetrical, Neuro grossly intact Psych/Mental Status: Normal Affect, Appropriate. Weight / BMI Weight Weight: 275 lb 2.19 oz Body Mass Index (BMI) 42.7 ABG / Lab / Microbiology Data Result Diagrams: 04/22/21 06:50 04/22/21 06:50 Laboratory: Laboratory Results - last 24 hr 04/21/21 16:02: POC Glucose 105 04/21/21 21:41: POC Glucose 90 04/21/21 22:04: WBC 12.2 H, RBC 3.33 L, Hgb 10.1 L, Hct 32.8 L, MCV 98.5, MCH 30.3, MCHC 30.8 L, RDW Std Deviation 45.6 H, RDW Coeff of Immanuel 12.7, Plt Count 359, MPV 10.2, Immature Gran % (Auto) 0.300, Neut % (Auto) 65.0, Lymph % (Auto) 21.7, [place] % (Auto) 9.8, Eos % (Auto) 2.9, Baso % (Auto) 0.3, Absolute Neuts (auto) 7.9 H, Absolute Lymphs (auto) 2.65, Nucleated RBC % 0 04/22/21 01:15: PT 16.0 H, INR 1.4, APTT 38.3 H 04/22/21 06:16: POC Glucose 114 H 04/22/21 06:50: WBC 11.2 H, RBC 3.20 L, Hgb 9.5 L, Hct 31.5 L, MCV 98.4, MCH 29.7, MCHC 30.2 L, RDW Std Deviation 45.4 H, RDW Coeff of Immaneul 12.6, Plt Count 338, MPV 10.6, Immature Gran % (Auto) 0.500, Neut % (Auto) 69.2, Lymph % (Auto) 18.0 L, [place] % (Auto) 8.5, Eos % (Auto) 3.4, Baso % (Auto) 0.4, Absolute Neuts (auto) 7.8 H, Absolute Lymphs (auto) 2.01, Nucleated RBC % 0 04/22/21 06:50: Sodium 138, Potassium 3.4 L, Chloride 97 L, Carbon Dioxide 32.0, Anion Gap 9, BUN 22 H, Creatinine 0.50 L, Estim Creat Clear Calc 132.86, Est GFR (MDRD) Af Amer 165, Est GFR (MDRD) Non-Af 136, BUN/Creatinine Ratio 44.1 H, Glucose 107 H, Calcium 9.5, Total Bilirubin 0.30, AST 29, ALT 38, Alkaline Phosphatase 132 H, Total Protein 7.6, Albumin 2.7 L, Globulin 4.9 H, Albumin/Globulin Ratio 0.6 L 04/22/21 10:52: POC Glucose 155 H Microbiology: Microbiology 04/22/21 11:58 Nasal Secretion SARS-CoV-2 Antigen (Rapid) - Final 04/16/21 09:49 Sputum, Induced/Lukens Gram Stain - Final 04/16/21 09:49 Sputum, Induced/[place]ens Respiratory Culture - Final Klebsiella pneumoniae sp pneum Streptococcus agalactiae (B) 04/15/21 20:55 Mucosa - Nose Respiratory Panel (PCR) - Final Radiography Diagnostic Testing: Radiology Impression Chest X-Ray 04/21/21 21:48 IMPRESSION: Underexpanded lungs may be due to respiratory phase versus basilar atelectasis. Electronically Signed: Kee Boggs MD at 22:13 EDT Tel , Service support , Meaningful Use Info Meaningful Use Diagnoses (Choose all that apply): None applicable Discharge Plan Admission Admit Date/Time: 04/15/21 21:11 Primary Reason for Your Visit: Status post cardiopulmonary arrest, PEA Attending Provider: Nick Romano Primary Care Provider: Alvarez Montanez Consulting Providers: Kee Bagley ; Get Christianson Discharge Orders/Prescriptions Prescriptions: New levofloxacin 500 mg tablet 500 mg PO DAILY Qty: 3 RF: 0 Continued omeprazole 40 mg capsule,delayed release(DR/EC) 40 mg PO DAILY RF: 0 albuterol sulfate [ProAir HFA] 90 mcg/actuation HFA aerosol inhaler 2 puff INHALATION Q4H PRN (Reason: shortness of breath or wheezing) RF: 0 atorvastatin 80 mg tablet 80 mg PO DAILY RF: 0 venlafaxine 75 mg capsule,extended release 24hr 75 mg PO DAILY RF: 0 levetiracetam 500 MG tablet 500 mg PO BID RF: 0 clonazepam 0.5 mg Tablet,Disintegrating 0.5 mg PO BID RF: 0 magnesium 200 mg Tablet 200 mg PO DAILY RF: 0 Dulera 100-5 mcg/actuation Hfa Aerosol Inhaler 2 puff INHALATION Q12H PRN (Reason: sob) RF: 0 metoprolol succinate 100 mg tablet extended release 24 hr 100 mg PO QHS Qty: 0 RF: 0 oxycodone 5 mg capsule 5 mg PO Q8H PRN (Reason: pain (scale score 7-10)) 5 Days Qty: 10 RF: 0 losartan 100 mg tablet 100 mg PO DAILY Qty: 0 RF: 0 spironolactone 50 mg tablet 50 mg PO DAILY Qty: 0 RF: 0 rivaroxaban 20 mg tablet 20 mg PO DAILY Qty: 90 RF: 3 Changed furosemide 20 mg tablet 40 mg PO DAILY Qty: 0 RF: 0 Referrals / Follow Up: Get Christianson DO [STAFF PHYSICIAN] - Within 2 Weeks (for COPD/Restristive lung disease) Alvarez Montanez MD [Primary Care Provider] - Disposition Disposition (needs filled in before D/C Order can be placed): [facility]
--- NOTE | 2021-04-22 14:37 | PHA.DC.MR ---
Pharmacy Service has performed discharge medication reconciliation for this patient upon transfer to [facility]. Home Medications levetiracetam 500 mg PO BID 11/29/15 albuterol sulfate 90 mcg/actuation aerosol inhaler 2 puff INHALATION Q4H PRN g 08/01/17 omeprazole 40 mg capsule,delayed release 40 mg PO DAILY 08/01/17 rivaroxaban 20 mg tablet 20 mg PO DAILY #90 tab 03/26/19 atorvastatin 80 mg tablet 80 mg PO DAILY 03/02/21 venlafaxine 75 mg capsule,extended release 24 hr 75 mg PO DAILY 03/02/21 Dulera 2 puff INHALATION Q12H PRN 03/15/21 clonazepam 0.5 mg PO BID 03/15/21 magnesium 200 mg PO DAILY 03/15/21 furosemide 40 mg PO DAILY #0 tab 04/22/21 levofloxacin 500 mg PO DAILY #3 tablet 04/22/21 losartan 100 mg PO DAILY #0 tab 04/22/21 metoprolol succinate 100 mg PO QHS #0 tab 04/22/21 oxycodone 5 mg PO Q8H PRN 5 Days #10 cap 04/22/21 spironolactone 50 mg PO DAILY #0 tab 04/22/21 The patient's discharge medication list was reviewed for discrepancies and discrepancies were resolved.
--- NOTE | 2021-04-22 14:37 | CASEMGMT ---
SW faxed all required paperwork to [facility] for a level of care. SW did fax orders to [facility] as well as negative COVID test. Await level of care. Plan: d/c to [facility] under intermediate level of care on a convalescent stay. [facility]icians will transport. Kathryn Corral MASTER MOTORCYCLE TECHNICIAN JAE
[2021-04-22] MEDS: Ipratropium/Albuterol Sulfate 3 ML AMPUL.NEB INHALATION (14:41)
--- NOTE | 2021-04-22 14:51 | RAD_ITS ---
STUDY: X-RAY CHEST REASON FOR EXAM: Female, 55 years old. Difficulty breathing. TECHNIQUE: Single AP portable view of the chest. COMPARISON: 04/21/2021. FINDINGS: The limited inspiration. There is no new mass or infiltrate within the lungs. There is no demonstrated pleural abnormality. Stable cardiomegaly. Normal mediastinum and timi. Normal visualized pulmonary arteries. Normal visualized aortic arch and descending thoracic aorta. No osseous changes. There is no demonstrated abnormality of the visualized soft tissue structures of the upper abdomen. RAD/Chest 1 View (Portable) IMPRESSION: 1. Stable cardiomegaly. 2. Limited inspiratory effort without acute pulmonary disease. Electronically Signed: Reggie Forte DO at 16:46 EDT Tel [phone], Service support ,
[2021-04-22 16:01] LABS: Bedside Glucose 106 mg/dL (70-110)
--- NOTE | 2021-04-22 16:19 | CASEMGMT ---
SW received level of care from [facility]. WILNER faxed this to [facility]. WILNER arranged for patient to get picked up at 630p via cot by [facility]. WILNER called [facility] and left a message for Laurent. WILNER called patient's sister in law and let her know. WILNER notified RN and medical office secretary. Patient was sleeping. Plan: d/c to [facility] under intermediate level of care on a convalescent stay. Physicians transported via cot. Kathryn Corral MUNITIONS HANDLER JAE
--- NOTE | 2021-04-22 17:44 | NURSING ---
Report called to Shelby Acosta LPN at [phone]
== END 2021-04-22 18:55 | disposition skilled nursing facility (03) | DRG 192 ==
LOC: ED 21:14 → ICU 21:24 → PCU 04-20 08:11
PROVIDERS: Internal Medicine; Internal Medicine Critical Care Medicine; Nurse Practitioner Family; Admitting Provider Family Medicine; Emergency Provider Emergency Medicine; PCP Internal Medicine; Visit Provider Internal Medicine
DX: I46.9 Cardiac arrest, cause unspecified (principal); J96.21 Acute and chronic respiratory failure with hypoxia; J96.22 Acute and chronic respiratory failure with hypercapnia; J15.0 Pneumonia due to Klebsiella pneumoniae; J44.0 Chronic obstructive pulmonary disease with (acute) lower respiratory infection; J15.3 Pneumonia due to streptococcus, group B; G93.41 Metabolic encephalopathy; E83.42 Hypomagnesemia; E87.6 Hypokalemia; G93.6 Cerebral edema; I82.441 Acute embolism and thrombosis of right tibial vein; E87.2 Acidosis; I11.0 Hypertensive heart disease with heart failure; I50.33 Acute on chronic diastolic (congestive) heart failure; N17.9 Acute kidney failure, unspecified; D63.8 Anemia in other chronic diseases classified elsewhere; T81.41XA Infection following a procedure, superficial incisional surgical site, initial encounter; N61.1 Abscess of the breast and nipple; I25.10 Atherosclerotic heart disease of native coronary artery without angina pectoris; Z20.822 Contact with and (suspected) exposure to COVID-19; C50.919 Malignant neoplasm of unspecified site of unspecified female breast; G40.909 Epilepsy, unspecified, not intractable, without status epilepticus; I69.951 Hemiplegia and hemiparesis following unspecified cerebrovascular disease affecting right dominant side; R73.03 Prediabetes; E78.5 Hyperlipidemia, unspecified; E03.9 Hypothyroidism, unspecified; F11.20 Opioid dependence, uncomplicated; G89.4 Chronic pain syndrome; K21.9 Gastro-esophageal reflux disease without esophagitis; F32.9 Major depressive disorder, single episode, unspecified; F41.9 Anxiety disorder, unspecified; E66.2 Morbid (severe) obesity with alveolar hypoventilation; Z68.41 Body mass index [BMI] 40.0-44.9, adult; Z99.81 Dependence on supplemental oxygen; Z79.01 Long term (current) use of anticoagulants; Z79.891 Long term (current) use of opiate analgesic; Z79.899 Other long term (current) drug therapy; Z86.718 Personal history of other venous thrombosis and embolism; Z86.711 Personal history of pulmonary embolism; Z87.891 Personal history of nicotine dependence
CPT/HCPCS: 31500; 31720; 36415; 36600; 70450; 71045; 71275; 74018; 76642; 80048; 80053; 80307; 81001; 82550; 82803; 82962; 83605; 83735; 83880; 84100; 84145; 84443; 84484; 85025; 85610; 85730; 87070; 87077; 87186; 87205; 87426; 87633; 87635; 87641; 92507; 92526; 92610; 93005; 93306; 93458; 93970; 94002; 94003; 94640; 97110; 97162; 97166; 97530; 97535; 97802; 97803; 99152; 99153; 99251; 99285; J7030; J7040; J7050; Q9957; Q9967; U0005; A4216; C1769; C1894; C8929; G0463; J1940; J2405; J3010; J3490; U0003

== ENCOUNTER 2021-04-24 16:20 | Observation (INO) | payer MEDICAID, SELFPAY ==
[2021-04-24] VITALS (7 sets, daily range): BP systolic 114–136; BP diastolic 74–88; PULSE 53–65; RESP 15–18; TEMP 36.3–36.6; O2SAT 97–100; BMI 43.9; BMI 41.8
--- NOTE | 2021-04-24 16:46 | CT_ITS ---
EXAMINATION : Head CT w/out contrast HISTORY : mental status change COMPARISON : 04/18/2021. TECHNIQUE : Multiple contiguous axial images were obtained from the skull base to the vertex without intravenous contrast. A radiation dose optimization technique was used for this scan. FINDINGS : The ventricles and sulci are normal in size. There is no evidence for acute intracranial hemorrhage, mass effect, or midline shift. There is no extra-axial fluid collection. There is normal tavera-white differentiation, without CT evidence of acute ischemia or infarct. The skull base and calvarium are unremarkable. The orbits are unremarkable. The paranasal sinuses are clear. The mastoid air cells are well-aerated. The soft tissues are unremarkable. CT/Brain/Head without Contrast IMPRESSION: No acute intracranial abnormality. Electronically Signed: Marcus Goode MD at 17:25 EDT Tel , Service support ,
--- NOTE | 2021-04-24 16:47 | EKG12_ITS ---
Test Reason : CP Blood Pressure : / mmHG Vent. Rate : 061 BPM Atrial Rate : 061 BPM P-R Int : 166 ms QRS Dur : 092 ms QT Int : 460 ms P-R-T Axes : 068 -01 004 degrees QTc Int : 463 ms Normal sinus rhythm Inferior infarct , age undetermined Abnormal ECG When compared with ECG of 19-APR-2021 04:49, Inferior infarct is now Present Nonspecific T wave abnormality, improved in Anterolateral leads Confirmed by TOBY BATISTA, CHARLENE ([id number]), scientific editor SAUMYA PERAZA ([id number]) on 04/25/2021 12:57:09 PM Referred By: SHANE Confirmed By:CHARLENE LUIS MD
--- NOTE | 2021-04-24 16:48 | EX.ED.DYSGE1 ---
HPI History of Present Illness Chief Complaint: Alt LOC Detail of Chief Complaint: Mental status change today Informant: patient and EMS Narrative Narrative: Patient presents to the emergency department via EMS from extended-care facility. Patient apparently has had decreased responsiveness throughout the day. On arrival to the emergency department she will answer some questions but is a poor historian. She does describe some discomfort in her chest and some numbness and tingling in her hands. Patient states that her hands have been twitching. Patient also describes a nosebleed off and on throughout the day from the right side of her nose. Patient tells me she had a heart catheterization 2 days ago that did not show any significant coronary artery occlusions. Patient is on rivaroxaban. She denies abdominal pain. She denies significant headache. PFSH [facility] Medical History Acute and chronic respiratory failure Anemia Anemia Anxiety and depression Back pain Bilateral peripheral pulmonary emboli BiPAP (biphasic positive airway pressure) dependence Breast infection Cardiology follow-up encounter Chest pain Chronic narcotic dependence COPD (chronic obstructive pulmonary disease) COPD exacerbation Dependence on continuous supplemental oxygen Depression Diastolic dysfunction Essential hypertension Former smoker GERD (gastroesophageal reflux disease) HLD (hyperlipidemia) Hx of cardiovascular stress test Hx of echocardiogram Hypothyroidism Morbid obesity MSSA (methicillin susceptible Staphylococcus aureus) pneumonia Obesity On home oxygen therapy STEPHANIE (obstructive sleep apnea) Pulmonary embolism Restrictive lung disease Seizure disorder SOB (shortness of breath) Syncope and collapse TIA (transient ischemic attack) TIA (transient ischemic attack) Wears dentures Wears glasses Home Medications levetiracetam 500 mg PO BID 11/29/15 [History Last Taken 04/05/21] albuterol sulfate 90 mcg/actuation aerosol inhaler 2 puff INHALATION Q4H PRN g 08/01/17 [History Last Taken 03/03/18] omeprazole 40 mg capsule,delayed release 40 mg PO DAILY 08/01/17 [History Last Taken 04/05/21] rivaroxaban 20 mg tablet 20 mg PO DAILY #90 tab 03/26/19 [Rx Last Taken 04/01/21] atorvastatin 80 mg tablet 80 mg PO DAILY 03/02/21 [History Last Taken Unknown] venlafaxine 75 mg capsule,extended release 24 hr 75 mg PO DAILY 03/02/21 [History Last Taken 03/22/21 07:30] Dulera 2 puff INHALATION Q12H PRN 03/15/21 [History Last Taken Unknown] clonazepam 0.5 mg PO BID 03/15/21 [History Last Taken 03/22/21 07:30] magnesium 200 mg PO DAILY 03/15/21 [History Last Taken Unknown] furosemide 40 mg PO DAILY #0 tab 04/22/21 [Rx Last Taken Unknown] levofloxacin 500 mg PO DAILY #3 tablet 04/22/21 [Rx Last Taken Unknown] losartan 100 mg PO DAILY #0 tab 04/22/21 [Rx Last Taken 04/05/21] metoprolol succinate 100 mg PO QHS #0 tab 04/22/21 [Rx Last Taken Unknown] oxycodone 5 mg PO Q8H PRN 5 Days #10 cap 04/22/21 [Rx Last Taken Unknown] spironolactone 50 mg PO DAILY #0 tab 04/22/21 [Rx Last Taken 03/22/21 07:30] acetaminophen 650 mg PO Q4H PRN 04/24/21 [History Last Taken Unknown] acetaminophen 650 mg PA Q4H PRN 04/24/21 [History Last Taken Unknown] aluminum-magnesium hydroxide [Antacid] 30 ml PO Q4H PRN PRN 04/24/21 [History Last Taken Unknown] bisacodyl 10 mg PA DAILY PRN 04/24/21 [History Last Taken Unknown] dextromethorphan-guaifenesin [Guaifenesin DM] 10 ml PO Q4H PRN PRN 04/24/21 [History Last Taken Unknown] magnesium hydroxide [Milk of Magnesia] 30 ml PO DAILY PRN PRN 04/24/21 [History Last Taken Unknown] sodium phosphates [Fleet Enema] 118 ml PA DAILY PRN 04/24/21 [History Last Taken Unknown] Allergy/AdvReac Type Severity Reaction Status Date / Time aspirin Allergy Hives Verified 04/24/21 16:22 ibuprofen Allergy Hives Verified 04/24/21 16:22 ketorolac tromethamine Allergy Angioedema Verified 04/24/21 16:22 [From Toradol] meperidine HCl [From Demerol] Allergy Other Verified 04/24/21 16:22 nitroglycerin Allergy Angioedema Verified 04/24/21 16:22 nut - unspecified Allergy Hives Verified 04/24/21 16:22 Penicillins [PCN] Allergy Hives Verified 04/24/21 16:22 tramadol HCl [From Ultram] Allergy Angioedema Verified 04/24/21 16:22 BENTYL Allergy Itching Uncoded 04/24/21 16:22 Family History Brother Myocardial infarction Father Colon cancer Surgical History History of cholecystectomy History of hysterectomy History of left breast biopsy History of left heart catheterization (LHC) (~04/22/21) Hx of appendectomy S/P lumpectomy, left breast Social History household members: none Smoking Status: Former smoker quit date: 01/21/16 pack-years: 32 second hand exposure: Yes alcohol intake: never substance use type: does not use ROS ROS ED Constitutional Constitutional ED: Reports systems reviewed and no addt'l complaints, except as documented; Denies body ache(s), change in weight or chills Eyes Eyes: Denies acute decrease in peripheral vision, change in vision, double vision or loss of vision ENT ENT ED: Reports none and other Details: Intermittent epistaxis from right side of the nose ; Denies ear pain, lip swelling, loss taste/smell, neck pain, otalgia or sore throat Cardiovascular Cardiovascular: Reports none and chest pain; Denies abdominal pain, chest pain with activity, leg edema, lightheadedness, palpitations, rapid heart rate or syncope Respiratory/Chest Respiratory/Chest: Reports none; Denies change in mental status, dry cough, dyspnea, hemoptysis, shortness of breath at rest or shortness of breath with exertion Gastrointestinal Gastrointestinal: Reports none; Denies abdominal pain, change in stool character, diarrhea, hematemesis, hematochezia, melena, rectal bleeding or vomiting Genitourinary Genitourinary ED: Reports none; Denies abdominal discomfort, anuria, dysuria, genital pain or polyuria Musculoskeletal Musculoskeletal: Reports none; Denies arthralgias, back pain, difficulty walking, extremity pain, muscle weakness or myalgias Integumentary Reports none; Denies abscess or rash Neurologic Neurologic: Reports none, paresthesias and other Details: Hands twitching ; Denies abnormal gait, confusion, focal weakness, frequent falls, headache(s), loss of vision, numbness, radicular pain, vertigo or weakness Psychiatric Psychiatric: Reports systems reviewed and no addt'l complaints, except as documented and none; Denies behavioral changes, confusion, difficulty concentrating, hallucinations, suicidal ideation, tactile hallucinations or visual hallucinations Endocrine Endocrinology: Denies none, cold intolerance, excessive sweating, fatigue or heat intolerance Hematologic/Lymphatic Hematologic/Lymphatic: Reports none; Denies anemia, easy bleeding or easy bruising Allergic/Immunologic Allergic/Immunologic ED: Denies as per HPI, none, lip swelling, mouth swelling, throat swelling, tongue swelling or hives EXAM Physical Exam Const Vital Signs: 04/24/21 16:21 04/24/21 16:22 04/24/21 16:27 Temperature 97.3 F L Temperature Source Temporal Pulse Rate 59 L 60 Respiratory Rate 16 15 Respiratory Effort Normal Respiratory Pattern Normal Blood Pressure 136/88 H 136/88 H Blood Pressure Mean 104 104 Pulse Ox 97 98 Oxygen Delivery Method Room Air Room Air 04/24/21 18:44 Temperature Temperature Source Pulse Rate 56 L Respiratory Rate 18 Respiratory Effort Respiratory Pattern Blood Pressure 114/74 Blood Pressure Mean 87 Pulse Ox 98 Oxygen Delivery Method Room Air Positive well nourished and well developed General Appearance ED: well developed and NAD HEENT Reports TM's clear and moist mucous membranes HEENT Narrative: Patient has some dried blood from the right nare. normocephalic and atraumatic; Negative for trauma or tenderness Tympanic Membrane ED: Yes TM's clear Eyes PERRL and EOMs intact bilaterally General Eye ED: Negative for pale conjunctiva or scleral icterus Neck no lymphadenopathy, supple and no JVD General: Negative for tenderness Chest Wall inspection of chest normal and palpation of chest normal Chest: Negative for tenderness Resp normal respiratory effort and clear to auscultation bilaterally Effort and Inspection: Negative for respiratory distress or pain with movement Auscultation: Negative for rhonchi, wheezes or diminished lung sounds Cardio regular rate, regular rhythm, S1 normal heart sound, S2 normal heart sound and no murmurs Peripheral Pulses: pulses 2+ throughout GI normal to inspection, nondistended, normoactive bowel sounds, soft to palpation, non-tender, non-distended and no masses Back/Spine no CVA tenderness and no thoracic nor lumbar tenderness Extremity normal to inspection General Extremety ED: Negative for edema General Extremity: Negative for edema Neuro oriented x3, CN's II-XII intact bilaterally, no sensory deficits noted and gait normal Sensorium / Orientation: awake, alert, oriented to person, oriented to place and oriented to time Motor Exam: strength 5/5 throughout and strength abnormal Psych mental status grossly normal Skin no rashes or lesions noted and no wounds MDM MDM MDM Narrative Medical decision making narrative: Etiology of patient's abnormal arm twitching is unclear. She does have seizure history but this is not typical of her seizure disorder. Patient also on multiple medications that could depress sensorium and some of the mental status change may be related to medication effect. Patient's CO2 on blood gas was unremarkable. Case discussed with hospitalist will evaluate patient for admission. I was asked to put in a teleneurology consult regarding the abnormal movements of the upper extremities. Lab Data Attestation: I reviewed the patient's lab results. Labs: Laboratory Results - last 24 hr 04/24/21 04/24/21 04/24/21 16:30 16:30 16:30 WBC 10.8 RBC 3.17 L Hgb 9.7 L Hct 30.1 L MCV 95.0 MCH 30.6 MCHC 32.2 D RDW Std Deviation 43.6 RDW Coeff of Immanuel 12.3 Plt Count 325 MPV 10.5 Immature Gran % (Auto) 0.400 Neut % (Auto) 66.6 Lymph % (Auto) 23.2 [place] % (Auto) 7.3 Eos % (Auto) 2.0 Baso % (Auto) 0.5 Absolute Neuts (auto) 7.2 Absolute Lymphs (auto) 2.50 Nucleated RBC % 0 Sodium 138 Potassium 4.0 Chloride 98 Carbon Dioxide 33.0 H Anion Gap 7 BUN 14 Creatinine 0.71 Estim Creat Clear Calc 87.06 Est GFR (MDRD) Af Amer 109 Est GFR (MDRD) Non-Af 90 BUN/Creatinine Ratio 19.6 Glucose 100 Lactic Acid Calcium 9.6 Phosphorus 3.4 Magnesium 2.1 Troponin I High Sens 8 Urine Color Urine Clarity Urine pH Ur Specific [place] Urine Protein Urine Glucose (UA) Urine Ketones Urine Occult Blood Urine Nitrite Urine Bilirubin Urine Urobilinogen Ur Leukocyte Esterase Urine RBC Urine WBC Ur Squamous Epith Cells Urine Bacteria Urine Mucus 04/24/21 04/24/21 17:05 17:15 WBC RBC Hgb Hct MCV MCH MCHC RDW Std Deviation RDW Coeff of Immanuel Plt Count MPV Immature Gran % (Auto) Neut % (Auto) Lymph % (Auto) [place] % (Auto) Eos % (Auto) Baso % (Auto) Absolute Neuts (auto) Absolute Lymphs (auto) Nucleated RBC % Sodium Potassium Chloride Carbon Dioxide Anion Gap BUN Creatinine Estim Creat Clear Calc Est GFR (MDRD) Af Amer Est GFR (MDRD) Non-Af BUN/Creatinine Ratio Glucose Lactic Acid 0.6 Calcium Phosphorus Magnesium Troponin I High Sens Urine Color Yellow Urine Clarity Clear Urine pH 5.0 Ur Specific [place] 1.015 Urine Protein Negative Urine Glucose (UA) Normal Urine Ketones Negative Urine Occult Blood Negative Urine Nitrite Negative Urine Bilirubin Negative Urine Urobilinogen Normal Ur Leukocyte Esterase 25 H Urine RBC 0-5 SEEN Urine WBC 0-5 SEEN Ur Squamous Epith Cells 0-5 SEEN Urine Bacteria 0 SEEN Urine Mucus 0 SEEN ABG Data ABG results: ABG 04/24/21 18:09 Specimen Type ART Sample Site R Brach pH 7.41 Bicarbonate Actual 29.7 H Total CO2 31 Base Excess 5 H O2 Saturation 97 ABG pCO2 47.0 H ABG pO2 95 Олег Test N/A O2 Delivery Device Cannula Liter Flow 3.0 Radiography Diagnostic Testing: Radiology Impression Brain CT 04/24/21 16:46 IMPRESSION: No acute intracranial abnormality. Electronically Signed: Marcus Goode MD at 17:25 EDT Tel , Service support , Chest X-Ray 04/24/21 16:56 IMPRESSION: No acute radiographic abnormalities. Electronically Signed: Marcus Goode MD at 17:26 EDT Tel , Service support , EKG Initial EKG: Attestation: I personally reviewed and interpreted this EKG as follows: Comments: Sinus rhythm with a ventricular rate of 56 bpm with no acute ST segment changes Discharge Plan Dx/Rx/DC Orders Clinical Impression: Acute alteration in mental status Disposition Disposition: Acute Care [facility]
--- NOTE | 2021-04-24 16:56 | RAD_ITS ---
INDICATION: chest pain EXAMINATION/TECHNIQUE: X-RAY - XR Chest 1 View COMPARISON: 04/22/2021. FINDINGS: The lungs are clear. The cardiomediastinal silhouette is unremarkable. No pleural effusion or pneumothorax. No acute osseous abnormalities. RAD/Chest 1 View (Portable) IMPRESSION: No acute radiographic abnormalities. Electronically Signed: Marcus Goode MD at 17:26 EDT Tel , Service support ,
[2021-04-24] MEDS: 0.9% Normal Saline 1,000 ML 150 ML IV (17:05)
--- NOTE | 2021-04-24 17:18 | EKG12_ITS ---
Test Reason : AMS Blood Pressure : / mmHG Vent. Rate : 056 BPM Atrial Rate : 056 BPM P-R Int : 170 ms QRS Dur : 096 ms QT Int : 480 ms P-R-T Axes : 024 000 008 degrees QTc Int : 463 ms Sinus bradycardia Otherwise normal ECG Confirmed by TOBY BATISTA, CHARLENE ([id number]), associate entertainment editor SAUMYA PERAZA ([id number]) on 04/26/2021 8:06:07 AM Referred By: REECE Confirmed By:CHARLENE LUIS MD
[2021-04-24 17:20] LABS: Bacteria 0 SEEN /hpf (None Seen); Mucous, Urine 0 SEEN /hpf (<or=2+)
[2021-04-24 17:21] LABS: Color, Urine Yellow (Yellow); Glucose, Dipstick Normal (Normal); Ketone-Dipstick Negative (Negative); Leukocyte Esterase-Dipstick 25 /ul (Negative); Nitrite-Dipstick Negative (Negative); Occult Blood-Urine Negative /ul (Negative); Protein-Dipstick Negative (Negative); Specific Gravity, Urine 1.015 (1.002-1.030); Urine Bilirubin Dipstick Negative (Negative); Urine Clarity Clear (Clear); Urine Urobilinogen Normal (Normal)
[2021-04-24 17:23] LABS: Absolute Neutrophil Count 7.2 X10^3/uL (2.0-7.7); Basophil# 0.05 X10^3/uL; Basophil% 0.5 % (0-1); Eosinophil# 0.22 X10^3/uL; Hematocrit 30.1 % (37-47); Hemoglobin 9.7 g/dL (12.0-15.0); Lymphocyte % 23.2 % (19-41); Mean Corp Hgb Conc 32.2 g/dL (32-36); Mean Corpuscular Hgb 30.6 pg (27.0-32.0); Mean Platelet Vol. 10.5 fl (6.2-12.0); Monocyte# 0.79 X10^3/uL; Monocyte% 7.3 % (0-10); NRBC Flagged by Analyzer 0 % (0-5); Neutrophil # 7.19 X10^3/uL (2.7-7.7); Neutrophil % 66.6 % (47-70); Platelet Count 325 K/mm3 (150-450); RBC Distribution Width CV 12.3 % (11.6-14.6); RBC Distribution Width SD 43.6 fl (35.1-43.9); Red Blood Count 3.17 M/mm3 (4.2-5.4); White Blood Count 10.8 K/mm3 (4.4-11.0)
[2021-04-24 17:27] LABS: Squamous Epithelial Cells - UA 0-5 SEEN /hpf (5-10); White Blood Cells 0-5 SEEN /hpf (0-5)
[2021-04-24 17:28] LABS: Red Blood Cells-Urine 0-5 SEEN /hpf (0-5)
[2021-04-24 17:35] LABS: POSITIVE COUNT NO; POSITIVE DIFFERENTIAL NO; POSITIVE MORPHOLOGY NO
[2021-04-24 17:41] LABS: Anion Gap 7 (5-15); BUN 14 mg/dL (7-18); BUN/Creat Ratio 19.6 RATIO (10-20); Calcium,Total 9.6 mg/dL (8.5-10.1); Chloride 98 mmol/L (98-107); Creatinine, Serum 0.71 mg/dL (0.55-1.02); EST Glomerular Filtration Rate 90 mL/min (>60); Est Glom Filt Rate - Afr Amer 109 mL/min (>60); Estimated Creatinine Clearance 87.06 ml/min; Glucose 100 mg/dL (74-106); Sodium Level 138 mmol/L (136-145); Troponin-I HS 8 pg/mL (3.0-54.0)
[2021-04-24 17:44] LABS: Lactic Acid 0.6 mmol/L (0.4-1.9)
--- NOTE | 2021-04-24 18:08 | PCM.HP.STD ---
Documented by User: Jp HART 04/24/21 18:28 HPI - General General Date of Admission: 04/24/21 Date of Service: 04/24/21 Chief Complaint: Twitching & altered mental status HPI Narrative LUIS A CUMMINGS is a 55 y/o F who presents to the ED at [facility] on 04/24/2021 the chief complaint of twitching and altered mental status. Patient presents to the hospital from a assisted facility where she was observed having decreased responsiveness throughout the day, as well as left-sided shoulder twitching and numbness and tingling in her hands. Of note, patient was discharged on 04/22/2021 for management of acute on chronic hypercapnic and hypoxic respiratory failure status post cardiac arrest. Patient also had a cardiac catheterization during last admission which did not demonstrate any significant angiographic findings. Of note, patient reports that her dose of clonazepam was recently increased, patient unclear about what previous dose was. Work-up in the ED to include vital signs, CBC and BMP and imaging were unremarkable. High-sensitivity troponin not elevated. Patient was given fluid in the ED. [facility] Medical History Acute and chronic respiratory failure Anemia Anemia Anxiety and depression Back pain Bilateral peripheral pulmonary emboli BiPAP (biphasic positive airway pressure) dependence Breast infection Cardiology follow-up encounter Chest pain Chronic narcotic dependence COPD (chronic obstructive pulmonary disease) COPD exacerbation Dependence on continuous supplemental oxygen Depression Diastolic dysfunction Essential hypertension Former smoker GERD (gastroesophageal reflux disease) HLD (hyperlipidemia) Hx of cardiovascular stress test Hx of echocardiogram Hypothyroidism Morbid obesity MSSA (methicillin susceptible Staphylococcus aureus) pneumonia Obesity On home oxygen therapy STEPHANIE (obstructive sleep apnea) Pulmonary embolism Restrictive lung disease Seizure disorder SOB (shortness of breath) Syncope and collapse TIA (transient ischemic attack) TIA (transient ischemic attack) Wears dentures Wears glasses Home Medications levetiracetam 500 mg PO BID 11/29/15 [History Last Taken 04/05/21] albuterol sulfate 90 mcg/actuation aerosol inhaler 2 puff INHALATION Q4H PRN g 08/01/17 [History Last Taken 03/03/18] omeprazole 40 mg capsule,delayed release 40 mg PO DAILY 08/01/17 [History Last Taken 04/05/21] rivaroxaban 20 mg tablet 20 mg PO DAILY #90 tab 03/26/19 [Rx Last Taken 04/01/21] atorvastatin 80 mg tablet 80 mg PO DAILY 03/02/21 [History Last Taken Unknown] venlafaxine 75 mg capsule,extended release 24 hr 75 mg PO DAILY 03/02/21 [History Last Taken 03/22/21 07:30] Dulera 2 puff INHALATION Q12H PRN 03/15/21 [History Last Taken Unknown] clonazepam 0.5 mg PO BID 03/15/21 [History Last Taken 03/22/21 07:30] magnesium 200 mg PO DAILY 03/15/21 [History Last Taken Unknown] furosemide 40 mg PO DAILY #0 tab 04/22/21 [Rx Last Taken Unknown] levofloxacin 500 mg PO DAILY #3 tablet 04/22/21 [Rx Last Taken Unknown] losartan 100 mg PO DAILY #0 tab 04/22/21 [Rx Last Taken 04/05/21] metoprolol succinate 100 mg PO QHS #0 tab 04/22/21 [Rx Last Taken Unknown] oxycodone 5 mg PO Q8H PRN 5 Days #10 cap 04/22/21 [Rx Last Taken Unknown] spironolactone 50 mg PO DAILY #0 tab 04/22/21 [Rx Last Taken 03/22/21 07:30] acetaminophen 650 mg PO Q4H PRN 04/24/21 [History Last Taken Unknown] acetaminophen 650 mg NJ Q4H PRN 04/24/21 [History Last Taken Unknown] aluminum-magnesium hydroxide [Antacid] 30 ml PO Q4H PRN PRN 04/24/21 [History Last Taken Unknown] bisacodyl 10 mg NJ DAILY PRN 04/24/21 [History Last Taken Unknown] dextromethorphan-guaifenesin [Guaifenesin DM] 10 ml PO Q4H PRN PRN 04/24/21 [History Last Taken Unknown] magnesium hydroxide [Milk of Magnesia] 30 ml PO DAILY PRN PRN 04/24/21 [History Last Taken Unknown] sodium phosphates [Fleet Enema] 118 ml NJ DAILY PRN 04/24/21 [History Last Taken Unknown] Allergy/AdvReac Type Severity Reaction Status Date / Time aspirin Allergy Hives Verified 04/24/21 16:22 ibuprofen Allergy Hives Verified 04/24/21 16:22 ketorolac tromethamine Allergy Angioedema Verified 04/24/21 16:22 [From Toradol] meperidine HCl [From Demerol] Allergy Other Verified 04/24/21 16:22 nitroglycerin Allergy Angioedema Verified 04/24/21 16:22 nut - unspecified Allergy Hives Verified 04/24/21 16:22 Penicillins [PCN] Allergy Hives Verified 04/24/21 16:22 tramadol HCl [From Ultram] Allergy Angioedema Verified 04/24/21 16:22 BENTYL Allergy Itching Uncoded 04/24/21 16:22 Family History Brother Myocardial infarction Father Colon cancer Surgical History History of cholecystectomy History of hysterectomy History of left breast biopsy History of left heart catheterization (LHC) (~04/22/21) Hx of appendectomy S/P lumpectomy, left breast Social History household members: none Smoking Status: Former smoker quit date: 01/21/16 pack-years: 32 second hand exposure: Yes alcohol intake: never substance use type: does not use ROS Constitutional Constitutional: Denies anorexia, change in weight, chills, fatigue, fever(s), malaise, night sweats, weakness or other Eyes Eyes: Denies blurry vision, change in eye color, change in vision, discharge from eye(s), double vision, erythema, eye pain, loss of vision or other ENT HEENT: Denies abnormal hearing, dysphagia, ear pain, epistaxis, headache(s), hearing loss, nasal congestion, nasal discharge, post nasal drip, sinus pressure, sore throat or other Cardiovascular Cardiovascular: Reports chest pain; Denies claudication, dyspnea on exertion, edema, lightheadedness, orthopnea, palpitations, paroxysmal nocturnal dyspnea, rapid heart rate, syncope or other Respiratory/Chest Respiratory/Chest: Denies cough, dyspnea, excessive phlegm production, hemoptysis, productive cough, shortness of breath at rest, shortness of breath with exertion, wheezing or other Gastrointestinal Gastrointestinal: Denies abdominal pain, coffee ground emesis, constipation, diarrhea, dyspepsia, hematemesis, hematochezia, loose stools, melena, nausea, vomiting or other Genitourinary Genitourinary: Denies burning urination, difficulty urinating, dysuria, hematuria, nocturia, urinary frequency, urinary hesitancy, urinary incontinence, urinary urgency or other Musculoskeletal Musculoskeletal: Denies arthralgias, back pain, joint pain, joint stiffness, joint swelling, myalgias, neck pain or other Neurologic Neurologic: Reports paresthesias, seizure-like activity, tingling and tremor(s); Denies abnormal gait, abnormal speech, confusion, disequilibrium, dizziness, focal weakness, headache(s), numbness, seizures, syncope or other Psychiatric Psychiatric: Denies anxiety, depression, homicidal ideation, suicidal ideation or other Vital Signs Vital Signs Vital Signs: 04/24/21 16:21 04/24/21 16:22 04/24/21 16:27 Temperature 97.3 F L Temperature Source Temporal Pulse Rate 59 L 60 Respiratory Rate 16 15 Respiratory Effort Normal Respiratory Pattern Normal Blood Pressure 136/88 H 136/88 H Blood Pressure Mean 104 104 Pulse Ox 97 98 Oxygen Delivery Method Room Air Room Air Weight Weight: 280 lb 10.375 oz Body Mass Index (BMI) 43.9 Physical Exam Const alert and oriented x3 General Appearance: cooperative HEENT normocephalic, head/scalp atraumatic and hearing grossly normal bilaterally Eyes PERRL, EOMs intact bilaterally and conjunctivae normal Neck no lymphadenopathy, supple and no JVD Resp normal respiratory effort, no retractions, no use of accessory muscles and clear to auscultation bilaterally Cardio regular rate, regular rhythm, no murmurs and no JVD GI normal to inspection, nondistended, normoactive bowel sounds, soft to palpation and non-tender Extremity normal to inspection, full ROM and no clubbing, cyanosis or edema Skin no rashes or lesions noted, no wounds, skin turgor normal and no jaundice Neuro CN's II-XII intact bilaterally Psych affect normal Results Lab / Micro Data Result Diagrams: 04/24/21 16:30 04/24/21 16:30 Labs: Laboratory Results - last 24 hr 04/24/21 16:30: WBC 10.8, RBC 3.17 L, Hgb 9.7 L, Hct 30.1 L, MCV 95.0, MCH 30.6, MCHC 32.2 D, RDW Std Deviation 43.6, RDW Coeff of Immanuel 12.3, Plt Count 325, MPV 10.5, Immature Gran % (Auto) 0.400, Neut % (Auto) 66.6, Lymph % (Auto) 23.2, [place] % (Auto) 7.3, Eos % (Auto) 2.0, Baso % (Auto) 0.5, Absolute Neuts (auto) 7.2, Absolute Lymphs (auto) 2.50, Nucleated RBC % 0 04/24/21 16:30: Sodium 138, Potassium 4.0, Chloride 98, Carbon Dioxide 33.0 H, Anion Gap 7, BUN 14, Creatinine 0.71, Estim Creat Clear Calc 87.06, Est GFR (MDRD) Af Amer 109, Est GFR (MDRD) Non-Af 90, BUN/Creatinine Ratio 19.6, Glucose 100, Calcium 9.6, Troponin I High Sens 8 04/24/21 17:05: Lactic Acid 0.6 04/24/21 17:15: Urine Color Yellow, Urine Clarity Clear, Urine pH 5.0, Ur Specific [place] 1.015, Urine Protein Negative, Urine Glucose (UA) Normal, Urine Ketones Negative, Urine Occult Blood Negative, Urine Nitrite Negative, Urine Bilirubin Negative, Urine Urobilinogen Normal, Ur Leukocyte Esterase 25 H, Urine RBC 0-5 SEEN, Urine WBC 0-5 SEEN, Ur Squamous Epith Cells 0-5 SEEN, Urine Bacteria 0 SEEN, Urine Mucus 0 SEEN Radiology Impression Brain CT 04/24/21 16:46 IMPRESSION: No acute intracranial abnormality. Electronically Signed: Marcus Goode MD at 17:25 EDT Tel , Service support , Chest X-Ray 04/24/21 16:56 IMPRESSION: No acute radiographic abnormalities. Electronically Signed: Marcus Goode MD at 17:26 EDT Tel , Service support , Assessment & Plan Assessment/Plan (1) Myoclonic jerking: PLAN: Patient is a 55-year-old male who presents to the ED [facility] on 04/24/2021 with a chief complaint of altered mental status and tremors. Patient will be placed on MedSurg 3 for observation. 1)Myoclonic jerking Patient reports a 2-day history of myoclonic jerks. Of note, patient reports that her dose of clonazepam was recently increased, unaware of previous dose. Plan; placed on MS 3 for medical observation, hold clonazepam, hold oxycodone PT/OT eval ordered, recommendations from [facility] teleneurology service currently being obtained, possible EEG in a.m. pending recommendations, CBC and CMP in a.m., case management consult ordered, Tylenol as needed, albuterol as needed, Zofran as needed, Mylanta as needed. 2) altered mental status Patient was observed at skilled nurse facility to have variable levels of confusion throughout the day. Suspect also medication related as patient is on oxycodone and clonazepam. Plan as above. CODE STATUS: Full code DVT prophylaxis - Xarelto Patient seen by Jp Montejo PA-C, under the supervision of Dr. Wright. Documented by User: Dr. Diane Wright MD 04/24/21 18:45 [facility] Medical History Acute and chronic respiratory failure Anemia Anemia Anxiety and depression Back pain Bilateral peripheral pulmonary emboli BiPAP (biphasic positive airway pressure) dependence Breast infection Cardiology follow-up encounter Chest pain Chronic narcotic dependence COPD (chronic obstructive pulmonary disease) COPD exacerbation Dependence on continuous supplemental oxygen Depression Diastolic dysfunction Essential hypertension Former smoker GERD (gastroesophageal reflux disease) HLD (hyperlipidemia) Hx of cardiovascular stress test Hx of echocardiogram Hypothyroidism Morbid obesity MSSA (methicillin susceptible Staphylococcus aureus) pneumonia Obesity On home oxygen therapy STEPHANIE (obstructive sleep apnea) Pulmonary embolism Restrictive lung disease Seizure disorder SOB (shortness of breath) Syncope and collapse TIA (transient ischemic attack) TIA (transient ischemic attack) Wears dentures Wears glasses Home Medications levetiracetam 500 mg PO BID 11/29/15 [History Last Taken 04/05/21] albuterol sulfate 90 mcg/actuation aerosol inhaler 2 puff INHALATION Q4H PRN g 08/01/17 [History Last Taken 03/03/18] omeprazole 40 mg capsule,delayed release 40 mg PO DAILY 08/01/17 [History Last Taken 04/05/21] rivaroxaban 20 mg tablet 20 mg PO DAILY #90 tab 03/26/19 [Rx Last Taken 04/01/21] atorvastatin 80 mg tablet 80 mg PO DAILY 03/02/21 [History Last Taken Unknown] venlafaxine 75 mg capsule,extended release 24 hr 75 mg PO DAILY 03/02/21 [History Last Taken 03/22/21 07:30] Dulera 2 puff INHALATION Q12H PRN 03/15/21 [History Last Taken Unknown] clonazepam 0.5 mg PO BID 03/15/21 [History Last Taken 03/22/21 07:30] magnesium 200 mg PO DAILY 03/15/21 [History Last Taken Unknown] furosemide 40 mg PO DAILY #0 tab 04/22/21 [Rx Last Taken Unknown] levofloxacin 500 mg PO DAILY #3 tablet 04/22/21 [Rx Last Taken Unknown] losartan 100 mg PO DAILY #0 tab 04/22/21 [Rx Last Taken 04/05/21] metoprolol succinate 100 mg PO QHS #0 tab 04/22/21 [Rx Last Taken Unknown] oxycodone 5 mg PO Q8H PRN 5 Days #10 cap 04/22/21 [Rx Last Taken Unknown] spironolactone 50 mg PO DAILY #0 tab 04/22/21 [Rx Last Taken 03/22/21 07:30] acetaminophen 650 mg PO Q4H PRN 04/24/21 [History Last Taken Unknown] acetaminophen 650 mg NJ Q4H PRN 04/24/21 [History Last Taken Unknown] aluminum-magnesium hydroxide [Antacid] 30 ml PO Q4H PRN PRN 04/24/21 [History Last Taken Unknown] bisacodyl 10 mg NJ DAILY PRN 04/24/21 [History Last Taken Unknown] dextromethorphan-guaifenesin [Guaifenesin DM] 10 ml PO Q4H PRN PRN 04/24/21 [History Last Taken Unknown] magnesium hydroxide [Milk of Magnesia] 30 ml PO DAILY PRN PRN 04/24/21 [History Last Taken Unknown] sodium phosphates [Fleet Enema] 118 ml NJ DAILY PRN 04/24/21 [History Last Taken Unknown] Allergy/AdvReac Type Severity Reaction Status Date / Time aspirin Allergy Hives Verified 04/24/21 16:22 ibuprofen Allergy Hives Verified 04/24/21 16:22 ketorolac tromethamine Allergy Angioedema Verified 04/24/21 16:22 [From Toradol] meperidine HCl [From Demerol] Allergy Other Verified 04/24/21 16:22 nitroglycerin Allergy Angioedema Verified 04/24/21 16:22 nut - unspecified Allergy Hives Verified 04/24/21 16:22 Penicillins [PCN] Allergy Hives Verified 04/24/21 16:22 tramadol HCl [From Ultram] Allergy Angioedema Verified 04/24/21 16:22 BENTYL Allergy Itching Uncoded 04/24/21 16:22 Family History Brother Myocardial infarction Father Colon cancer Surgical History History of cholecystectomy History of hysterectomy History of left breast biopsy History of left heart catheterization (LHC) (~04/22/21) Hx of appendectomy S/P lumpectomy, left breast Social History household members: none Smoking Status: Former smoker quit date: 01/21/16 pack-years: 32 second hand exposure: Yes alcohol intake: never substance use type: does not use Results Lab / Micro Data Result Diagrams: 04/24/21 16:30 04/24/21 16:30 Charges/Coding Addendum Addendum: This patient was seen in conjunction with TANNER Edwards. I have independently interviewed and examined the patient and reviewed pertinent historical, laboratory, and other data. Please refer to TANNER Edwards's note for his patient's presentation, findings, and recommendations. I have reviewed and his note and concur with his documentation 55-year-old female recently discharged from the hospital after an out of hospital cardiac arrest, PEA, status post intubation and extubation. She had cardiac catheterization done on 04/22/21 that showed single vessel so minimal CAD of the LAD. Patient was found to have Klebsiella/group B strep pneumonia, Patient was discharged on 04/22/21. She presents from the correction with twitching of bilateral upper extremities, worse on the left, right nasal epistaxis and lethargy. She has a history of seizure disorder on Keppra. She recently had changes made to her clonazepam and venlafaxine. Patient denied any chest pain or dizziness or palpitations Physical Exam: Gen: Morbidly obese, on 2 L of oxygen,, not pale, not jaundiced, having myoclonic jerks in the upper extremity CVS:HS I +II, regular, no murmurs RESP: Diminished at lung bases GI: BS present and normal, soft, nontender, no palpable organs EXT:No edema EKG shows sinus bradycardia, QTC on EKG is 463 ASSESSMENT: 1. Myoclonic jerks 2. Acute on chronic combined respiratory failure status post cardiac arrest 3. Cerebral edema 4. Klebsiella/group B strep pneumonia Plan: SOC consult from ED EEG Check Keppra level Continue on BiPAP at night Hold oxycodone/clonazepam Continue on Xarelto Rest of home meds reevaluated Visit Charges Inpatient E&M: 05419 Init Hosp L3
[2021-04-24 18:16] LABS: Base Excess 5 mmol/L (-2 to +2); Bicarbonate 29.7 mmol/L (22-26); Blood Gas Specimen Type ART; O2 Delivery Device Cannula; PO2 95 mmHG (75-100); SITE R Brach; SO2 97 % (95-99); Total Carbon Dioxide 31 mmol/L; pH 7.41 (7.35-7.45)
[2021-04-24 18:38] LABS: Magnesium 2.1 mg/dL (1.6-2.6); Phosphorus 3.4 mg/dL (2.5-4.9)
--- NOTE | 2021-04-24 18:55 | TELEMED_ITS ---
[facility] Tele[facility] has confirmed receipt of a request for visit. This document confirms receipt of the order initiating the consult. To find the results of the consultation, please view the patient's reports for the scanned Telemed Consult.
--- NOTE | 2021-04-24 19:47 | ED.RN ---
annabella christine called and david amin updated on pt's disoposition. pt's brother was called and informed pt would be getting admitted.
[2021-04-24 20:41] LABS: AST(SGOT) 47 U/L (15-37); Alanine Aminotransfer ALT/SGPT 64 U/L (13-56); Alkaline Phosphatase 141 U/L (45-117); Bilirubin, Direct 0.18 mg/dL (0.00-0.30); Globulin 4.8 g/dL (2.2-4.2); Protein, Total 7.8 g/dL (6.4-8.2)
[2021-04-24] MEDS: levETIRAcetam 500 MG Tablet PO (23:11)
[2021-04-24] MEDS: Acetaminophen 325 MG Tablet 650 MG PO (23:13)
[2021-04-25] VITALS (10 sets, daily range): BP systolic 113–122; BP diastolic 62–75; PULSE 53–84; RESP 15–22; TEMP 36.3–36.7; O2SAT 94–99
--- NOTE | 2021-04-25 00:09 | PCS.PANDOC ---
PANDEMIC DOCUMENTATION INITIATED: Date: 03/07/2021 Time: 190
[2021-04-25] MEDS: 0.9% Normal Saline 1,000 ML 150 ML IV ×3 (02:57→20:28)
[2021-04-25] MEDS: Methocarbamol 750 MG Tablet PO ×2 (03:00→17:14)
[2021-04-25 05:58] LABS: Absolute Lymphocyte Count 2.24 X10^3/uL (0.83-4.51); Absolute Neutrophil Count 5.4 X10^3/uL (2.0-7.7); Basophil# 0.04 X10^3/uL; Basophil% 0.5 % (0-1); Eosinophil# 0.23 X10^3/uL; Eosinophils% 2.7 % (0-5); Hematocrit 29.4 % (37-47); Hemoglobin 9.1 g/dL (12.0-15.0); Lymphocyte # 2.24 X10^3/ul (0.83-4.51); Lymphocyte % 26.1 % (19-41); Mean Corpuscular Hgb 29.9 pg (27.0-32.0); Mean Corpuscular Volume 96.7 fL (81-99); Mean Platelet Vol. 10.7 fl (6.2-12.0); Monocyte# 0.64 X10^3/uL; Monocyte% 7.5 % (0-10); NRBC Flagged by Analyzer 0 % (0-5); Neutrophil % 62.9 % (47-70); Platelet Count 295 K/mm3 (150-450); RBC Distribution Width CV 12.4 % (11.6-14.6); Red Blood Count 3.04 M/mm3 (4.2-5.4); White Blood Count 8.6 K/mm3 (4.4-11.0)
[2021-04-25 06:28] LABS: ALB/GLOB Ratio 0.6 RATIO (0.9-2.4); AST(SGOT) 35 U/L (15-37); Alanine Aminotransfer ALT/SGPT 53 U/L (13-56); Albumin, Serum 2.6 g/dL (3.2-5.0); Alkaline Phosphatase 129 U/L (45-117); Anion Gap 7 (5-15); BUN 12 mg/dL (7-18); BUN/Creat Ratio 26.5 RATIO (10-20); Calcium,Total 9.1 mg/dL (8.5-10.1); Chloride 102 mmol/L (98-107); Creatinine, Serum 0.45 mg/dL (0.55-1.02); EST Glomerular Filtration Rate 152 mL/min (>60); Est Glom Filt Rate - Afr Amer 184 mL/min (>60); Estimated Creatinine Clearance 137.36 ml/min; Globulin 4.3 g/dL (2.2-4.2); Glucose 103 mg/dL (74-106); Potassium 3.7 mmol/L (3.5-5.1); Protein, Total 6.9 g/dL (6.4-8.2); Sodium Level 140 mmol/L (136-145)
[2021-04-25] MEDS: Budesonide Respules 0.5 MG/2 ML AMPUL.NEB. INHALATION ×2 (07:31→20:36)
[2021-04-25] MEDS: Albuterol 2.5 MG/3 ML VIAL.NEB. INHALATION ×3 (07:31→20:36)
[2021-04-25] MEDS: Furosemide 40 MG Tablet PO (08:27)
[2021-04-25] MEDS: Losartan Potassium 100 MG Tablet PO (08:28)
[2021-04-25] MEDS: Venlafaxine XR 75 MG Capsule PO (08:29)
[2021-04-25] MEDS: Pantoprazole Sodium 40 MG Tablet PO (08:29)
[2021-04-25] MEDS: levETIRAcetam 500 MG Tablet PO ×2 (08:29→21:59)
[2021-04-25] MEDS: Spironolactone 50 MG Tablet PO (08:30)
--- NOTE | 2021-04-25 09:04 | PN.HOSP_ITS ---
Subjective Subjective Patient is a 55-year-old lady who presented with decreased level of sensorium as well as tremor. A diagnosis of myoclonus was made admitted to regular nursing floor with consultation placed to neurology Objective Data Objective Data Patient is a 55-year-old lady who presented with decreased level of sensorium as well as tremor. A diagnosis of myoclonus was made admitted to regular nursing floor with consultation placed to neurology Vital Signs: Vital Signs Temp Pulse Resp BP Pulse Ox 97.3 F L 57 L 18 122/69 H 98 04/25/21 08:14 04/25/21 08:14 04/25/21 08:14 04/25/21 08:14 04/25/21 08:14 Oxygen Flow Rate (L/min) 2 Oxygen Delivery Method Nasal Cannula Weight: 120.973 kg Body Mass Index (BMI) 41.8 Intake & Output: Intake and Output for Last 24 Hours 04/23/21 04/24/21 04/25/21 23:59 23:59 23:59 Intake Total 1000 / 1000 Balance 1000 / 1000 Lab / Micro Data Result Diagrams: 04/25/21 05:20 04/25/21 05:20 Labs: Laboratory Results - last 24 hr 04/24/21 16:30: WBC 10.8, RBC 3.17 L, Hgb 9.7 L, Hct 30.1 L, MCV 95.0, MCH 30.6, MCHC 32.2 D, RDW Std Deviation 43.6, RDW Coeff of Immanuel 12.3, Plt Count 325, MPV 10.5, Immature Gran % (Auto) 0.400, Neut % (Auto) 66.6, Lymph % (Auto) 23.2, [place] % (Auto) 7.3, Eos % (Auto) 2.0, Baso % (Auto) 0.5, Absolute Neuts (auto) 7.2, Absolute Lymphs (auto) 2.50, Nucleated RBC % 0 04/24/21 16:30: Sodium 138, Potassium 4.0, Chloride 98, Carbon Dioxide 33.0 H, Anion Gap 7, BUN 14, Creatinine 0.71, Estim Creat Clear Calc 87.06, Est GFR (MDRD) Af Amer 109, Est GFR (MDRD) Non-Af 90, BUN/Creatinine Ratio 19.6, Glucose 100, Calcium 9.6, Troponin I High Sens 8 10/03/21 16:30: Phosphorus 3.4, Magnesium 2.1 04/24/21 16:30: Total Bilirubin 0.30, Direct Bilirubin 0.18, AST 47 H, ALT 64 H, Alkaline Phosphatase 141 H, Total Protein 7.8, Albumin 3.0 L, Globulin 4.8 H 04/24/21 17:05: Lactic Acid 0.6 04/24/21 17:15: Urine Color Yellow, Urine Clarity Clear, Urine pH 5.0, Ur Specific [place] 1.015, Urine Protein Negative, Urine Glucose (UA) Normal, Urine Ketones Negative, Urine Occult Blood Negative, Urine Nitrite Negative, Urine Bilirubin Negative, Urine Urobilinogen Normal, Ur Leukocyte Esterase 25 H, Urine RBC 0-5 SEEN, Urine WBC 0-5 SEEN, Ur Squamous Epith Cells 0-5 SEEN, Urine Bacteria 0 SEEN, Urine Mucus 0 SEEN 04/24/21 20:16: Ammonia 20.0 04/25/21 05:20: WBC 8.6, RBC 3.04 L, Hgb 9.1 L, Hct 29.4 L, MCV 96.7, MCH 29.9, MCHC 31.0 L, RDW Std Deviation 44.0 H, RDW Coeff of Immanuel 12.4, Plt Count 295, MPV 10.7, Immature Gran % (Auto) 0.300, Neut % (Auto) 62.9, Lymph % (Auto) 26.1, [place] % (Auto) 7.5, Eos % (Auto) 2.7, Baso % (Auto) 0.5, Absolute Neuts (auto) 5.4, Absolute Lymphs (auto) 2.24, Nucleated RBC % 0 04/25/21 05:20: Sodium 140, Potassium 3.7, Chloride 102, Carbon Dioxide 31.0, Anion Gap 7, BUN 12, Creatinine 0.45 L, Estim Creat Clear Calc 137.36, Est GFR (MDRD) Af Amer 184, Est GFR (MDRD) Non-Af 152, BUN/Creatinine Ratio 26.5 H, Glucose 103, Calcium 9.1, Total Bilirubin 0.30, AST 35, ALT 53, Alkaline Darlene sphatase 129 H, Total Protein 6.9, Albumin 2.6 L, Globulin 4.3 H, Albumin/Globulin Ratio 0.6 L ABG Data ABG results: ABG 10/03/21 18:09 Specimen Type ART Sample Site R Brach pH 7.41 Bicarbonate Actual 29.7 H Total CO2 31 Base Excess 5 H O2 Saturation 97 ABG pCO2 47.0 H ABG pO2 95 Олег Test N/A O2 Delivery Device Cannula Liter Flow 3.0 Radiography Diagnostic Testing: Radiology Impression Brain CT 04/24/21 16:46 IMPRESSION: No acute intracranial abnormality. Electronically Signed: Marcus Goode MD at 17:25 EDT Tel , Service support , Chest X-Ray 04/24/21 16:56 IMPRESSION: No acute radiographic abnormalities. Electronically Signed: Marcus Goode MD at 17:26 EDT Tel , Service support , Physical Exam Narrative GENERAL: cooperative HEENT: Atraumatic; EYES; Anicteric, Normal Conjunctiva NECK; supple, normal thyroid, RESPIRATORY: Diminished to auscultation CARDIOVASCULAR: Regular S1 S2, GI: soft, normoactive bowel sounds, : No Renal angle tenderness; EXTREMITIES: No edema, no clubbing, MUSCULOSKELETAL: no muscle waisting NEURO: Awake; no lateralizing signs. SKIN: No Rash PSYCH; Flat affect Assessment & Plan Assessment/Plan (1) Myoclonic jerking: PLAN: Patient is a 55-year-old lady who presented with decreased level of sensorium as well as tremor. 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 Myoclonus ?Seen by tele neurology. Recommendation was to increase Klonopin to 0.25 mg twice daily. Neurology also recommended for patient to undergo MRI findings of which are as above 2. Suspected pseudotumor cerebri (Increased bilateral optic nerve sheath diameter with empty sella turcica appearance) ? Neurology were consulted for further recommendations 3. Chronic congestive heart failure with preserved ejection fraction ?Patient is on furosemide did continue 4. Morbid obesity ?With BMI of 42.3 with plans to hiv counselor patient on weight reduction following her intubation 5. Obstructive sleep apnea ?On PAP therapy 6. Chronic pain syndrome ?Per history. Patient was on oxycodone 5 mg as needed prior to admission 7. History of DVT/PE ?Patient is rivaroxaban discontinued 8. Depression with anxiety ?Patient is on venlafaxine, continued 9. GERD ?On PPI 10. Chronic hypoxic respiratory failure -secondary to overlap syndrome (COPD and asthma) 11. Hypertension - Blood pressure controlled, home medications continued with dose adjustment as needed 12. Dyslipidemia -Patient is on statin therapy, continued at home dose 13. Seizure disorder ?Patient is on Keppra 14. History of CVA -with residual right-sided weakness 15. 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 DVT prophylaxis ?On rivaroxaban Charges/Coding Visit Charges OBSV E&M: 24203 Subsequent observation care L3
--- NOTE | 2021-04-25 09:12 | MRI_ITS ---
STUDY: MRI BRAIN WITH AND WITHOUT CONTRAST REASON FOR EXAM: Female, 55 years old. ?seizure -- jerky x 1 week TECHNIQUE: Standardized multiplanar fat and water weighted pulse sequences were obtained. dotarem 24ml IV was administered for the contrast portion of the examination. COMPARISON: None. FINDINGS: Normal size of the ventricles and extra-axial spaces for the patient''s age. Normal white matter tracts of the supratentorial brain. Normal bilateral basal ganglia. Normal thalami. There is no extra-axial fluid accumulation. Normal flow voids within the major intracranial circulation suggesting patency by spin echo criteria. Normal venous enhancement. There is no enhancing intra-axial or extra-axial abnormality. There is marked prominence of the subarachnoid spaces surrounding the optic nerves best visualized on axial T2-weighted series 5 image 11 of 25, the transverse diameter of the optic nerve sheaths approximately 3 mm from the posterior globe measure 0.8 cm on the right and 0.7 cm on the left. Flattening of the pituitary gland along the sellar floor is visualized with a prominent empty sella turcica appearance, the pituitary stalk is visualized along the dorsal aspect of the sella turcica seen best on sagittal series 3 image 13 Normal tectal plate and pineal gland. Normal midbrain, fabian and medulla. Normal cerebellum. Normal basal cisterns. Normal bilateral temporal bones. Normal bilateral internal auditory canals. Normal visualized paranasal sinuses. Normal calvarium and skull base. Normal visualized soft tissue structures. Normal visualized upper cervical spine. MRI/Brain W/WO Contrast IMPRESSION: Increased bilateral optic nerve sheath diameter with empty sella turcica appearance would recommend clinical correlation for elevated intracranial pressure. No abnormal enhancement visualized, no structural brain abnormality or intracranial mass is seen. Electronically Signed: Sherman Toscano MD at 13:08 EDT Tel , Service support ,
[2021-04-25] MEDS: 0.9% Saline Lock 10 ML Syringe IV (11:11)
--- NOTE | 2021-04-25 11:56 | CASEMGMT ---
Social Work Note WILNER reviewed chart. Pt was just sent to [facility] a few days ago. SW in to speak with pt. SW introduced self and role at [facility]. Pt is alert and orientated, answers questions appropriately. Pt confirms she was just discharged to [facility]. SW asked pt if her plan is to return and pt states no her plan is to discharge home to her brothers home. Pt states that she will have 24/7 care, states three people live there. SW informed pt that it just depends on how pt does with PT/OT. SW asked pt if this worker could call her brother to confirm he is agreeable to taking pt home. Pt gave this worker permission to call her brother to confirm discharge plans. SW will await PT/OT and then call pt's brother to confirm plans. WILNER did place a call to [facility] and spoke with Elias in admissions. Elias states pt can return when medically cleared. Plan: TBD. Pt is stating she prefers to return home. Ivy Harrison SEAM STEAMER, TELEGRAPH INSTALLER
--- NOTE | 2021-04-25 12:47 | CASEMGMT ---
Social Work Note WILNER placed a call to pt's brother Mike Bradshaw, Mike's Deanne answered the phone. Per previous notes, Deanne was included in decision making for pt. WILNER spoke with Deanne about discharge plans, how pt mentioned returning home to her brother's home. Deanne states if pt is min assist, able to get up to the bathroom, get to bed, use a walker, etc. they are willing and able to take pt home. Deanne states they live in a one story home, she and her (pt's brother), and her nephew all live together and able to assist. Deanne states she does have a broken arm and wrist so wouldn't be able to assist much. Dylon states she has concerns with pt's tremors and pt being able to use own arms and being able to use walker. WILNER informed Deanne that PT/OT will work with pt and make recommendations, they have been unable to see pt yet. Deanne states if pt is able to come home, they would like either [facility] or outpatient therapy. WILNER informed Deanne that again it just depends on how pt does with PT/OT and that this worker will keep her updated. Deanne states understanding. Ivy Harrison SEO ASSISTANT, DRONE OPERATOR
--- NOTE | 2021-04-25 14:39 | NURSING ---
spoke with [facility] regarding new imagining of MRI results, answering service obtained information and will call back to the floor.
--- NOTE | 2021-04-25 14:46 | NURSING ---
MRI result report faxed to [facility] teleneurology/ MRI asked to push imaging to [facility] teleneurology per their request as well.
--- NOTE | 2021-04-25 15:59 | CASEMGMT ---
Pt requested this PAT ALBA call her brother to ask if he was able to obtain her items from [facility]. PAT ALBA called pt brother. Left message on identified voicemail with pt questions. Provided him with the phone number to call pt back. Also provided pt with his phone number.
[2021-04-25] MEDS: Rivaroxaban 20 MG Tablet PO (17:14)
[2021-04-25] MEDS: Acetaminophen 325 MG Tablet 650 MG PO (20:28)
[2021-04-25] MEDS: HYDROcodone Bitartrate/Apap 5/325 Tablet PO (20:48)
[2021-04-25] MEDS: Atorvastatin Calcium 80 MG Tablet PO (21:59)
[2021-04-25] MEDS: Metoprolol(XL)Succ 100 MG Tablet PO (21:59)
[2021-04-26 03:00] VITALS: BP 112/66; PULSE 57; PULSE 58; RESP 18; TEMP 36.4; O2SAT 100
[2021-04-26] MEDS: 0.9% Normal Saline 1,000 ML 150 ML IV (03:25)
[2021-04-26 05:46] LABS: Absolute Lymphocyte Count 2.31 X10^3/uL (0.83-4.51); Absolute Neutrophil Count 5.5 X10^3/uL (2.0-7.7); Basophil# 0.05 X10^3/uL; Basophil% 0.6 % (0-1); Eosinophil# 0.24 X10^3/uL; Eosinophils% 2.8 % (0-5); Hematocrit 28.8 % (37-47); Lymphocyte # 2.31 X10^3/ul (0.83-4.51); Lymphocyte % 26.8 % (19-41); Mean Corp Hgb Conc 31.3 g/dL (32-36); Mean Corpuscular Hgb 30.2 pg (27.0-32.0); Mean Corpuscular Volume 96.6 fL (81-99); Mean Platelet Vol. 10.7 fl (6.2-12.0); Monocyte# 0.52 X10^3/uL; NRBC Flagged by Analyzer 0 % (0-5); Neutrophil # 5.46 X10^3/uL (2.7-7.7); Neutrophil % 63.3 % (47-70); Platelet Count 272 K/mm3 (150-450); RBC Distribution Width CV 12.5 % (11.6-14.6); RBC Distribution Width SD 44.2 fl (35.1-43.9); Red Blood Count 2.98 M/mm3 (4.2-5.4); White Blood Count 8.6 K/mm3 (4.4-11.0)
[2021-04-26 05:58] LABS: Anion Gap 6 (5-15); BUN 11 mg/dL (7-18); BUN/Creat Ratio 20.3 RATIO (10-20); Calcium,Total 8.7 mg/dL (8.5-10.1); Chloride 105 mmol/L (98-107); Creatinine, Serum 0.54 mg/dL (0.55-1.02); EST Glomerular Filtration Rate 124 mL/min (>60); Est Glom Filt Rate - Afr Amer 150 mL/min (>60); Estimated Creatinine Clearance 114.47 ml/min; Glucose 109 mg/dL (74-106); Magnesium 1.8 mg/dL (1.6-2.6); Potassium 3.3 mmol/L (3.5-5.1); Sodium Level 142 mmol/L (136-145)
--- NOTE | 2021-04-26 07:19 | DS.PCM_ITS ---
Providers Date of Admission: 04/24/21 Primary Care Physician: Dr. Alvarez Montanez MD Reason For Visit: POSSIBLE SEIZURE DISORDER Diagnosis Discharge Diagnosis (1) Myoclonic jerking: Status: Acute Code(s): G25.3 - Myoclonus Medications at Discharge Home Medications levetiracetam 500 mg PO BID 11/29/15 albuterol sulfate 90 mcg/actuation aerosol inhaler 2 puff INHALATION Q4H PRN g 08/01/17 omeprazole 40 mg capsule,delayed release 40 mg PO DAILY 08/01/17 rivaroxaban 20 mg tablet 20 mg PO DAILY #90 tab 03/26/19 atorvastatin 80 mg tablet 80 mg PO DAILY 03/02/21 venlafaxine 75 mg capsule,extended release 24 hr 75 mg PO DAILY 03/02/21 Dulera 2 puff INHALATION Q12H PRN 03/15/21 magnesium 200 mg PO DAILY 03/15/21 furosemide 40 mg PO DAILY #0 tab 04/22/21 losartan 100 mg PO DAILY #0 tab 04/22/21 metoprolol succinate 100 mg PO QHS #0 tab 04/22/21 oxycodone 5 mg PO Q8H PRN 5 Days #10 cap 04/22/21 spironolactone 50 mg PO DAILY #0 tab 04/22/21 Fleet Enema 118 ml [place] DAILY PRN 04/24/21 acetaminophen 650 mg PO Q4H PRN 04/24/21 acetaminophen 650 mg IL Q4H PRN 04/24/21 aluminum-magnesium hydroxide 30 ml PO Q4H PRN PRN 04/24/21 bisacodyl 10 mg IL DAILY PRN 04/24/21 dextromethorphan-guaifenesin 10 ml PO Q4H PRN PRN 04/24/21 magnesium hydroxide [Milk of Magnesia] 30 ml PO DAILY PRN 04/24/21 venlafaxine 37.5 mg PO DAILY 04/25/21 clonazepam 0.75 mg PO BID #0 tab 04/26/21 Hospital Course Summary of Care Provided Minutes Spent on Discharge: 35 Hospital Course: Patient is a 55-year-old lady who presented with decreased level of sensorium as well as tremor. 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 Myoclonus ?Seen by tele neurology. Recommendation was to increase Klonopin to 0.25 mg twice daily. Neurology also recommended for patient to undergo MRI findings of which are as above 2. Suspected pseudotumor cerebri (Increased bilateral optic nerve sheath diameter with empty sella turcica appearance) ? Neurology were consulted for further recommendations -Case was discussed with neurology plan is for patient to undergo further evaluation as outpatient for ophthalmologic evaluation and if there is any evidence of papilledema then patient will need to have lumbar puncture. Suspicion was however low for pseudotumor cerebri since patient did not have any symptoms 3. Chronic congestive heart failure with preserved ejection fraction ?Patient is on furosemide did continue 4. Morbid obesity ?With BMI of 42.3 with plans to admitting counselor patient on weight reduction following her intubation 5. Obstructive sleep apnea ?On PAP therapy 6. Chronic pain syndrome ?Per history. Patient was on oxycodone 5 mg as needed prior to admission 7. History of DVT/PE ?Patient is rivaroxaban discontinued 8. Depression with anxiety ?Patient is on venlafaxine, continued 9. GERD ?On PPI 10. Chronic hypoxic respiratory failure -secondary to overlap syndrome (COPD and asthma) 11. Hypertension - Blood pressure controlled, home medications continued with dose adjustment as needed 12. Dyslipidemia -Patient is on statin therapy, continued at home dose 13. Seizure disorder ?Patient is on Keppra 14. History of CVA -with residual right-sided weakness 15. 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 DVT prophylaxis ?On rivaroxaban Physical Exam Narrative GENERAL: cooperative HEENT: Atraumatic; EYES; Anicteric, Normal Conjunctiva NECK; supple, normal thyroid, RESPIRATORY: Diminished to auscultation CARDIOVASCULAR: Regular S1 S2, GI: soft, normoactive bowel sounds, : No Renal angle tenderness; EXTREMITIES: No edema, no clubbing, MUSCULOSKELETAL: no muscle waisting NEURO: Awake; no lateralizing signs. SKIN: No Rash PSYCH; Flat affect Medical Records Data Medical Nutrition Assessment Dietitian: Malnutrition Criteria Met Start: 04/25/21 12:59 Freq: Status: Active Protocol: Document 04/25/21 13:00 [facility] (Rec: 04/25/21 13:00 [facility] [id number]) Nutrition Malnutrition Evidence of Malnutrition Exists Yes Evidenced By Suboptimal Energy Intake ( Severe),Weight Loss (Severe) Clinical Problem Acute Disease or Injury Related Malnutrition Etiology related to recent illness and of spouse leading to pt inability to meet estimated nutritional needs Signs/Symptoms as evidenced by 7.7% wt loss since 04/15 and <50% po intake of 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 Recommendation Dietitian Recommendations/Changes Pt will continue diet and oral nutrition supplement as ordered Weight / BMI Weight Weight: 121 kg Body Mass Index (BMI) 41.8 ABG / Lab / Microbiology Data Result Diagrams: 04/26/21 05:10 04/26/21 05:10 Laboratory: Laboratory Results - last 24 hr 04/26/21 05:10: WBC 8.6, RBC 2.98 L, Hgb 9.0 L, Hct 28.8 L, MCV 96.6, MCH 30.2, MCHC 31.3 L, RDW Std Deviation 44.2 H, RDW Coeff of Immanuel 12.5, Plt Count 272, MPV 10.7, Immature Gran % (Auto) 0.500, Neut % (Auto) 63.3, Lymph % (Auto) 26.8, [place] % (Auto) 6.0, Eos % (Auto) 2.8, Baso % (Auto) 0.6, Absolute Neuts (auto) 5.5, Absolute Lymphs (auto) 2.31, Nucleated RBC % 0 04/26/21 05:10: Sodium 142, Potassium 3.3 L, Chloride 105, Carbon Dioxide 31.0, Anion Gap 6, BUN 11, Creatinine 0.54 L, Estim Creat Clear Calc 114.47, Est GFR (MDRD) Af Amer 150, Est GFR (MDRD) Non-Af 124, BUN/Creatinine Ratio 20.3 H, Glucose 109 H, Calcium 8.7, Magnesium 1.8 Microbiology: Microbiology 04/25/21 11:10 Nasal Secretion SARS-CoV-2 Antigen (Rapid) - Final Radiography Diagnostic Testing: Radiology Impression Brain MRI 04/25/21 09:12 IMPRESSION: Increased bilateral optic nerve sheath diameter with empty sella turcica appearance would recommend clinical correlation for elevated intracranial pressure. No abnormal enhancement visualized, no structural brain abnormality or intracranial mass is seen. Electronically Signed: Sherman Toscano MD at 13:08 EDT Tel , Service support , D/C Instructions Discharge Diet: No restrictions Discharge Activity: Return to Normal Activity Call your doctor if you observe: Fever of 101 or Higher, Shortness of breath, Fainting spells and Chest pain Meaningful Use Info Meaningful Use Diagnoses (Choose all that apply): None applicable Discharge Plan Admission Admit Date/Time: 04/24/21 17:59 Attending Provider: Alexander Ye Primary Care Provider: Alvarez Montanez Discharge Orders/Prescriptions Prescriptions: Continued omeprazole 40 mg capsule,delayed release(DR/EC) 40 mg PO DAILY RF: 0 albuterol sulfate [ProAir HFA] 90 mcg/actuation HFA aerosol inhaler 2 puff INHALATION Q4H PRN (Reason: shortness of breath or wheezing) RF: 0 atorvastatin 80 mg tablet 80 mg PO DAILY RF: 0 venlafaxine 75 mg capsule,extended release 24hr 75 mg PO DAILY RF: 0 levetiracetam 500 MG tablet 500 mg PO BID RF: 0 magnesium 200 mg Tablet 200 mg PO DAILY RF: 0 Dulera 100-5 mcg/actuation Hfa Aerosol Inhaler 2 puff INHALATION Q12H PRN (Reason: sob) RF: 0 metoprolol succinate 100 mg tablet extended release 24 hr 100 mg PO QHS Qty: 0 RF: 0 oxycodone 5 mg capsule 5 mg PO Q8H PRN (Reason: pain (scale score 7-10)) 5 Days Qty: 10 RF: 0 furosemide 20 mg tablet 40 mg PO DAILY Qty: 0 RF: 0 losartan 100 mg tablet 100 mg PO DAILY Qty: 0 RF: 0 spironolactone 50 mg tablet 50 mg PO DAILY Qty: 0 RF: 0 acetaminophen 325 mg Tablet 650 mg PO Q4H PRN (Reason: pain/fever) RF: 0 acetaminophen 650 mg Suppository 650 mg IL Q4H PRN (Reason: pain/fever) RF: 0 dextromethorphan-guaifenesin 10-200 mg/5 mL Liquid 10 ml PO Q4H PRN PRN (Reason: Cough) RF: 0 magnesium hydroxide [Milk of Magnesia] 400 mg/5 mL Suspension 30 ml PO DAILY PRN (Reason: Stomach Upset) RF: 0 bisacodyl 10 mg Suppository 10 mg IL DAILY PRN (Reason: Constipation) RF: 0 aluminum-magnesium hydroxide 225-200 mg/5 mL Suspension 30 ml PO Q4H PRN PRN (Reason: Indigestion) RF: 0 Fleet Enema 19-7 gram/118 mL Enema 118 ml IL DAILY PRN (Reason: Constipation) RF: 0 venlafaxine 37.5 mg capsule,extended release 24hr 37.5 mg PO DAILY RF: 0 rivaroxaban 20 mg tablet 20 mg PO DAILY Qty: 90 RF: 3 Changed clonazepam 0.5 mg Tablet,Disintegrating 0.75 mg PO BID Qty: 0 RF: 0 Referrals / Follow Up: Alvarez Montanez MD [Primary Care Provider] - In 1 Week (Be referred for ophthalmologic evaluation) Disposition Disposition (needs filled in before D/C Order can be placed): Home Health Service Charges/Coding Visit Charges OBSV E&M: 69112 Observation care discharge
[2021-04-26 07:32] VITALS: PULSE 88; RESP 22
[2021-04-26] MEDS: Budesonide Respules 0.5 MG/2 ML AMPUL.NEB. INHALATION (07:32)
[2021-04-26] MEDS: Albuterol 2.5 MG/3 ML VIAL.NEB. INHALATION (07:32)
[2021-04-26 08:04] VITALS: BP 134/75; PULSE 64; RESP 18; TEMP 36.6; O2SAT 94
[2021-04-26] MEDS: Losartan Potassium 100 MG Tablet PO (08:08)
[2021-04-26] MEDS: Pantoprazole Sodium 40 MG Tablet PO (08:09)
[2021-04-26] MEDS: Venlafaxine XR 75 MG Capsule PO (08:09)
[2021-04-26] MEDS: levETIRAcetam 500 MG Tablet PO (08:09)
[2021-04-26] MEDS: Furosemide 40 MG Tablet PO (08:09)
[2021-04-26] MEDS: Spironolactone 50 MG Tablet PO (08:10)
[2021-04-26 09:06] VITALS: O2SAT 99
--- NOTE | 2021-04-26 11:06 | PHA.DC.MR ---
Pharmacy Service has performed discharge medication reconciliation for this patient. The patient's discharge medication list was reviewed for discrepancies and discrepancies were resolved. Home Medications levetiracetam 500 mg PO BID 11/29/15 albuterol sulfate 90 mcg/actuation aerosol inhaler 2 puff INHALATION Q4H PRN g 08/01/17 omeprazole 40 mg capsule,delayed release 40 mg PO DAILY 08/01/17 rivaroxaban 20 mg tablet 20 mg PO DAILY #90 tab 03/26/19 atorvastatin 80 mg tablet 80 mg PO DAILY 03/02/21 venlafaxine 75 mg capsule,extended release 24 hr 75 mg PO DAILY 03/02/21 Dulera 2 puff INHALATION Q12H PRN 03/15/21 magnesium 200 mg PO DAILY 03/15/21 furosemide 40 mg PO DAILY #0 tab 04/22/21 losartan 100 mg PO DAILY #0 tab 04/22/21 metoprolol succinate 100 mg PO QHS #0 tab 04/22/21 oxycodone 5 mg PO Q8H PRN 5 Days #10 cap 04/22/21 spironolactone 50 mg PO DAILY #0 tab 04/22/21 Fleet Enema 118 ml [place] DAILY PRN 04/24/21 acetaminophen 650 mg PO Q4H PRN 04/24/21 acetaminophen 650 mg [place] Q4H PRN 04/24/21 aluminum-magnesium hydroxide 30 ml PO Q4H PRN PRN 04/24/21 bisacodyl 10 mg [place] DAILY PRN 04/24/21 dextromethorphan-guaifenesin 10 ml PO Q4H PRN PRN 04/24/21 magnesium hydroxide [Milk of Magnesia] 30 ml PO DAILY PRN 04/24/21 venlafaxine 37.5 mg PO DAILY 04/25/21 clonazepam 0.75 mg PO BID #0 tab 04/26/21
--- NOTE | 2021-04-26 11:12 | CASEMGMT ---
Social Work Note Pt to be discharged today, pt still stating she would like to return home. WILNER reviewed PT/OT, pt requiring assistance on all ADLs at this time. Pt would need 24/7 care. SW in to speak with pt. SW spoke with pt about discharge plans. Pt still adamant about returning home. Pt states that she will either go to her brother's house at discharge or will go back to her home and have her son and his girlfriend stay with her. SW spoke with pt that she will need 24/7 care. Pt states that she will have 24/7 care at home. Pt states that she needs to return home so she can bury her . Pt states that her less than a month ago and she needs to bury him. SW offered support to pt. Pt becoming teary eyed. SW asked pt if she wanted bereavement/grief support/counseling and pt denied. Pt states she just needs to get home. SW asked pt if this worker could call her brother again just to confirm discharge plans and pt gave this worker permission to do that, requests that this worker call him in the room with pt to she can speak to him as well. WILNER brought phone into room, called pt's brother Mike, no answer. SW asked pt if this worker could call her MILLA Deanne and pt gave this worker permission to call Deanne. SW placed a call to Deanne. WILNER spoke with Deanne about discharge plans. WILNER informed Deanne that pt is requiring assistance with all ADLS, pt will need 24/7 care. Deanne states her nephew is staying with her and her (pt's brother) will be able to assist with ADLs. Deanne asked about HHC. WILNER informed Deanne that HHC can be arranged for RN/PT/OT. Deanne states her address is [address] [place] [address]. [place] [phone]. Pt states that she has a walker and rollator at home. Patient was provided a list of HHC providers including quality and resource use data and consistent with the patient?s preferred geographic region, medical needs, and insurance network. Pt states to try [facility], then states to try any 4 star rated HHC. WILNER updated RN CM. Plan: Home with HHC Ivy Harrison MANAGER ORACLE, CARDIAC CARE UNIT NURSE
--- NOTE | 2021-04-26 11:15 | CASEMGMT ---
RN ANJALI made referral to [facility] who does not accept pt insurance. TC to [facility] who can accept pt. Made Bridget chavez aware that pt will be staying with her brother and faxed referral information at this time.
--- NOTE | 2021-04-26 11:41 | CASEMGMT ---
RN CM in to pt room. Pt is agreeable to having [facility] with the 3.5 star rating. Pt aware of the disciplines ordered and denies further questions or needs from this RN CM.
--- NOTE | 2021-04-26 12:05 | CHAPLAIN ---
Type of Pastoral Visit _x__ Initial Visit ___ Follow-up Visit ___ On-call Visit ___ General Patient Visit ___ Spiritual Assessment ___ Family Conference ___ Bereavement ___ Rapid Response ___ Code Blue ___ Other (describe below) Pastoral Care Referral From _x__ Patient ___ Family ___ Nurse ___ Physician ___ Grief Counselor ___ Curriculum Specialist ___ Other (describe below) Sacrament/Intervention _x__ Active listening ___ Anointing ___ Adventist _x__ Bereavement ___ Communion _x__ Rylie exploration ___ _x__ Life review _x__ Prayer ___ Reconciliation ___ Sacrament of Sick _x__ Supportive presence ___ Wedding ___ Other (describe below) Pastoral Comments patient speaks of her husbands recent , her breast cancer and future treatments, her daughters' broken relationship with her, the need at discharge to move in with her brother, etc.; pt has feelings of being overwhelmed and yet speaks of her rylie in God; discussion on what is helpful to her coping which include her brother, her dog, Restorationist music, and her crafting; pt welcomes presence and prayer at this time
[2021-04-26 12:40] VITALS: PULSE 67
[2021-04-26 15:03] VITALS: BP 133/81; PULSE 70; RESP 16; TEMP 36.6; O2SAT 100
[2021-04-26] MEDS: HYDROcodone Bitartrate/Apap 5/325 Tablet PO (15:06)
[2021-04-26] MEDS: Methocarbamol 750 MG Tablet PO (15:06)
--- NOTE | 2021-04-26 16:04 | CASEMGMT ---
Social Work Note Pt discharged home. SW placed a call to [facility] and left message for Dameko in admissions that pt discharged home today. Ivy Harrison PATHOLOGY TECH, DEPUTY SHERIFF LIEUTENANT
[2021-04-28 22:33] LABS: KEPPRA (LEVETIRACETAM) 13.1 ug/mL (10.0-40.0)
== END 2021-04-26 16:04 | disposition home health service (06) ==
LOC: ED 19:01 → MS3 19:34
PROVIDERS: Admitting Provider Internal Medicine; Emergency Provider Emergency Medicine; PCP Internal Medicine; Visit Provider Internal Medicine
DX: G25.3 Myoclonus (principal); Z23 Encounter for immunization; R04.0 Epistaxis; J44.9 Chronic obstructive pulmonary disease, unspecified; K21.9 Gastro-esophageal reflux disease without esophagitis; E66.01 Morbid (severe) obesity due to excess calories; J96.22 Acute and chronic respiratory failure with hypercapnia; J96.21 Acute and chronic respiratory failure with hypoxia; J15.3 Pneumonia due to streptococcus, group B; B96.1 Klebsiella pneumoniae [K. pneumoniae] as the cause of diseases classified elsewhere; I25.10 Atherosclerotic heart disease of native coronary artery without angina pectoris; E78.5 Hyperlipidemia, unspecified; G47.33 Obstructive sleep apnea (adult) (pediatric); G89.4 Chronic pain syndrome; F41.8 Other specified anxiety disorders; I11.0 Hypertensive heart disease with heart failure; I50.32 Chronic diastolic (congestive) heart failure; E03.9 Hypothyroidism, unspecified; Z68.41 Body mass index [BMI] 40.0-44.9, adult; Z87.891 Personal history of nicotine dependence; Z79.01 Long term (current) use of anticoagulants; Z99.81 Dependence on supplemental oxygen; Z86.711 Personal history of pulmonary embolism; Z79.899 Other long term (current) drug therapy; Z86.74 Personal history of sudden cardiac arrest; Z86.718 Personal history of other venous thrombosis and embolism
CPT/HCPCS: 36415; 36600; 70450; 70553; 71045; 80048; 80053; 80076; 80177; 81001; 82140; 82803; 83605; 83735; 84100; 84484; 85025; 87040; 87426; 93005; 94640; 95819; 96360; 96361; 97162; 97166; 97530; 97535; 97802; 99218; 99251; 99285; A9575; J7030; P9612; 90686; A4216; G0378; G0463

== ENCOUNTER 2021-05-08 14:33 | Observation (INO) | payer MEDICAID, SELFPAY ==
[2021-05-08] VITALS (12 sets, daily range): BP systolic 89–114; BP diastolic 58–72; PULSE 56–62; RESP 14–20; TEMP 36.2–36.8; O2SAT 94–100; BMI 44.4; BMI 43.4
--- NOTE | 2021-05-08 14:57 | CT_ITS ---
STUDY: CT CHEST, ABDOMEN T PELVIS WITH CONTRAST REASON FOR EXAM: Female, 55 years old. trauma -- right rib injury, left thoracic, right lumbar, pain RADIATION DOSAGE (If Supplied By Facility): CTDIvol = ( 24.61 ) mGy, DLP = ( 2288.57 ) mGycm TECHNIQUE: Transaxial imaging was performed following intravenous administration of IV 100mL Isovue-370. Individualized dose optimization techniques were used for this CT. COMPARISON: No relevant priors. FINDINGS: CHEST: No filling defect in the pulmonary arteries. Intact thoracic aorta. Borderline cardiomegaly. No pleural or pericardial effusion. No adenopathy. No pneumothorax. Dependent atelectasis in the bilateral lungs. Mosaic attenuation bilaterally, suggestive of small airway disease. No pulmonary contusion, mass, or suspicious nodule. Acute/subacute nondisplaced fractures of the anterolateral aspects of the right third-fifth ribs. Compression deformity of the superior endplates of T5 and T6. A T4 hemangioma. Abdomen and pelvis: No evidence of injury to the solid organs of the abdomen. Status post cholecystectomy with mild intra and extrahepatic biliary dilatation. Unremarkable spleen, pancreas and adrenals. Multifocal areas of cortical scarring/thinning in the right kidney. Left renal cysts measuring up to 3.8 cm. Suggestion of prior appendectomy. Moderate to large amount of retained stool throughout the colon with no evidence of bowel obstruction. No free air or free fluid. No adenopathy. Intact abdominal aorta and its major branches. Sections through the pelvis demonstrate evidence of prior hysterectomy. No adnexal mass. Urinary bladder grossly unremarkable. No acute fracture in the regional skeleton. Mild multilevel lumbar spondylosis an mild levoscoliosis. Mild osteoarthritis of the bilateral hip joints. CT/CT Chest, Abd, Pel w/Contrast IMPRESSION: Acute/subacute nondisplaced fractures of the anterolateral aspects of the right third-fifth ribs. Compression deformity of the superior endplates of T5 and T6, uncertain age. No acute finding in the abdomen and pelvis. Electronically Signed: Curtis Collins MD at 16:06 EDT Tel , Service support ,
--- NOTE | 2021-05-08 14:59 | EKG12_ITS ---
Test Reason : RIB PAIN Blood Pressure : / mmHG Vent. Rate : 055 BPM Atrial Rate : 055 BPM P-R Int : 168 ms QRS Dur : 100 ms QT Int : 488 ms P-R-T Axes : 056 -07 013 degrees QTc Int : 466 ms Sinus bradycardia Inferior infarct , age undetermined Abnormal ECG Confirmed by TOBY BATISTA, CHARLENE ([id number]), book or script editor SAUMYA PERAZA ([id number]) on 05/10/2021 9:18:52 AM Referred By: [facility] Confirmed By:CHARLENE LUIS MD
[2021-05-08] MEDS: fentaNYL 100 MCG/2 ML Ampul 50 MCG IV ×3 (15:28→19:26)
[2021-05-08 15:39] LABS: Absolute Neutrophil Count 4.4 X10^3/uL (2.0-7.7); Basophil# 0.03 X10^3/uL; Basophil% 0.4 % (0-1); Eosinophil# 0.17 X10^3/uL; Eosinophils% 2.5 % (0-5); Hematocrit 30.4 % (37-47); Hemoglobin 9.2 g/dL (12.0-15.0); Lymphocyte % 23.9 % (19-41); Mean Corp Hgb Conc 30.3 g/dL (32-36); Mean Corpuscular Hgb 30.1 pg (27.0-32.0); Mean Corpuscular Volume 99.3 fL (81-99); Mean Platelet Vol. 11.2 fl (6.2-12.0); Monocyte# 0.45 X10^3/uL; Monocyte% 6.7 % (0-10); NRBC Flagged by Analyzer 0 % (0-5); Neutrophil # 4.42 X10^3/uL (2.7-7.7); Neutrophil % 66.2 % (47-70); Platelet Count 226 K/mm3 (150-450); RBC Distribution Width CV 13.7 % (11.6-14.6); RBC Distribution Width SD 50.1 fl (35.1-43.9); Red Blood Count 3.06 M/mm3 (4.2-5.4); White Blood Count 6.7 K/mm3 (4.4-11.0)
[2021-05-08 15:56] LABS: ALB/GLOB Ratio 0.8 RATIO (0.9-2.4); AST(SGOT) 11 U/L (15-37); Alanine Aminotransfer ALT/SGPT 21 U/L (13-56); Albumin, Serum 3.3 g/dL (3.2-5.0); Alkaline Phosphatase 116 U/L (45-117); Anion Gap 6 (5-15); BUN 15 mg/dL (7-18); BUN/Creat Ratio 15.8 RATIO (10-20); Chloride 110 mmol/L (98-107); Creatinine, Serum 0.95 mg/dL (0.55-1.02); EST Glomerular Filtration Rate 65 mL/min (>60); Est Glom Filt Rate - Afr Amer 78 mL/min (>60); Estimated Creatinine Clearance 62.64 ml/min; Globulin 3.9 g/dL (2.2-4.2); Glucose 106 mg/dL (74-106); Potassium 3.7 mmol/L (3.5-5.1); Protein, Total 7.2 g/dL (6.4-8.2); Sodium Level 141 mmol/L (136-145)
--- NOTE | 2021-05-08 16:40 | EDS_ITS ---
HPI HPI - Fall History of Present Illness Chief Complaint: Fall Informant: patient Narrative Narrative: Patient presents by EMS from home for evaluation of right rib injury back injury from mechanical fall 2 days ago. Patient ambulates with a walker states tripped fell over. Denies head injuries. Patient supposed be on Xarelto however states since being discharged in the hospital unable to get the medications therefore has not taken it for at least a week. She has history of PE. She has history of COPD on chronic 2 L of oxygen. Apparently recent cardiopulmonary arrest and was hospitalized she states she was at a skilled center. She states she was sent from skilled center to the hospital for nosebleed. She states since then she went home with home health stating she did not like the facility. She states there is family at home with her brother and sister helping her, however today increasing weakness with a walker therefore sent in for evaluation. Here complaining of right rib pain. Denies cough. Denies fever. Use Tylenol with no relief. After work-up with the patient further records reviewed, PEA cardiopulmonary arrest on April 15. Apparently collapsed 2 days before and . She has history of breast cancer is dealing with a wound infection. She had a catheterization in the hospital with no obstructive findings. Unclear on the etiology of her pulmonary arrest from discharge summary. She was discharged April 22 to skilled center at [facility]. She returned couple days later for increasing confusion with nosebleed. Patient had a work-up for seizures. MRI noted increasing pressures with an empty sella. There is concerns for pseudotumor cerebri objectively however clinically did not have symptoms. Neurology plan outpatient work-up. Patient was discharged home health care on 26 April. [facility] Medical History Abnormal cardiac enzyme level Acute and chronic respiratory failure Acute respiratory failure with hypoxia and hypercapnia LEIGH ANN (acute kidney injury) Anemia Anemia Anxiety and depression Back pain Bilateral peripheral pulmonary emboli BiPAP (biphasic positive airway pressure) dependence Breast infection Cancer Cardiology follow-up encounter Cardiopulmonary arrest with successful resuscitation Chest pain Chronic narcotic dependence Congestive heart failure COPD (chronic obstructive pulmonary disease) COPD exacerbation Coronary artery disease CPAP (continuous positive airway pressure) dependence Dependence on continuous supplemental oxygen Depression Diastolic dysfunction DVT (deep vein thrombosis) in DVT (deep venous thrombosis) Essential hypertension Former smoker GERD (gastroesophageal reflux disease) HLD (hyperlipidemia) Hx of cardiovascular stress test Hx of echocardiogram Hypertension Hypothyroidism Morbid obesity MSSA (methicillin susceptible Staphylococcus aureus) pneumonia Myocardial infarct Obesity On home oxygen therapy STEPHANIE (obstructive sleep apnea) Pulmonary embolism Restrictive lung disease Seizure disorder Seizures Sleep apnea SOB (shortness of breath) Syncope and collapse TIA (transient ischemic attack) TIA (transient ischemic attack) Wears dentures Wears glasses Home Medications levetiracetam 500 mg PO BID 11/29/15 [History Last Taken 04/05/21] albuterol sulfate 90 mcg/actuation aerosol inhaler 2 puff INHALATION Q4H PRN g 08/01/17 [History Last Taken 03/03/18] omeprazole 40 mg capsule,delayed release 40 mg PO DAILY 08/01/17 [History Last Taken 04/05/21] rivaroxaban 20 mg tablet 20 mg PO DAILY #90 tab 03/26/19 [Rx Last Taken 04/01/21] atorvastatin 80 mg tablet 80 mg PO DAILY 03/02/21 [History Last Taken Unknown] venlafaxine 75 mg capsule,extended release 24 hr 75 mg PO DAILY 03/02/21 [History Last Taken 03/22/21 07:30] Dulera 2 puff INHALATION Q12H PRN 03/15/21 [History Last Taken Unknown] magnesium 200 mg PO DAILY 03/15/21 [History Last Taken Unknown] furosemide 40 mg PO DAILY #0 tab 04/22/21 [Rx Last Taken Unknown] losartan 100 mg PO DAILY #0 tab 04/22/21 [Rx Last Taken 04/05/21] metoprolol succinate 100 mg PO QHS #0 tab 04/22/21 [Rx Last Taken Unknown] oxycodone 5 mg PO Q8H PRN 5 Days #10 cap 04/22/21 [Rx Last Taken Unknown] spironolactone 50 mg PO DAILY #0 tab 04/22/21 [Rx Last Taken 03/22/21 07:30] Fleet Enema 118 ml RI DAILY PRN 04/24/21 [History Last Taken Unknown] acetaminophen 650 mg PO Q4H PRN 04/24/21 [History Last Taken Unknown] acetaminophen 650 mg RI Q4H PRN 04/24/21 [History Last Taken Unknown] aluminum-magnesium hydroxide 30 ml PO Q4H PRN PRN 04/24/21 [History Last Taken Unknown] bisacodyl 10 mg RI DAILY PRN 04/24/21 [History Last Taken Unknown] dextromethorphan-guaifenesin 10 ml PO Q4H PRN PRN 04/24/21 [History Last Taken Unknown] magnesium hydroxide [Milk of Magnesia] 30 ml PO DAILY PRN 04/24/21 [History Last Taken Unknown] venlafaxine 37.5 mg PO DAILY 04/25/21 [History Last Taken Unknown] clonazepam 0.75 mg PO BID #20 tab 04/26/21 [Rx Last Taken Unknown] Allergy/AdvReac Type Severity Reaction Status Date / Time aspirin Allergy Hives Verified 04/24/21 16:22 ibuprofen Allergy Hives Verified 04/24/21 16:22 ketorolac tromethamine Allergy Angioedema Verified 04/24/21 16:22 [From Toradol] meperidine HCl [From Demerol] Allergy seizures Verified 04/24/21 21:12 nitroglycerin Allergy Angioedema Verified 04/24/21 16:22 nut - unspecified Allergy Hives Verified 04/24/21 16:22 Penicillins [PCN] Allergy Hives Verified 04/24/21 16:22 tramadol HCl [From Ultram] Allergy Angioedema Verified 04/24/21 16:22 BENTYL Allergy Itching Uncoded 04/24/21 16:22 Family History Brother Myocardial infarction Father Colon cancer Surgical History History of appendectomy History of cholecystectomy History of cholecystectomy History of hysterectomy History of left breast biopsy History of left heart catheterization (LHC) (~04/22/21) Hx of appendectomy S/P lumpectomy, left breast Social History household members: none Smoking Status: Former smoker quit date: 01/21/16 pack-years: 32 second hand exposure: Yes alcohol intake: never substance use type: does not use ROS ROS ED Constitutional Constitutional ED: Denies chills, fever(s) or sweats Eyes Eyes: Denies change in vision ENT ENT ED: Denies dysphagia or sore throat Cardiovascular Cardiovascular: Reports other Details: Right chest wall pain ; Denies chest pain, leg edema, palpitations or racing heartbeat Respiratory/Chest Respiratory/Chest: Denies cough, dyspnea or dyspnea on exertion Gastrointestinal Gastrointestinal: Denies abdominal pain, diarrhea, nausea or vomiting Genitourinary Genitourinary ED: Denies dysuria, hematuria or urinary frequency Musculoskeletal Musculoskeletal: Reports back pain; Denies extremity pain or neck pain Integumentary Denies rash or wounds Neurologic Neurologic: Denies headache(s), paresthesias or weakness EXAM Physical Exam Const Vital Signs: 05/08/21 14:36 05/08/21 14:37 05/08/21 15:00 Temperature 97.3 F L Temperature Source Oral Pulse Rate 57 L 57 L Respiratory Rate 16 16 Respiratory Effort Normal Non-Labored Respiratory Depth Shallow Respiratory Pattern Normal Blood Pressure 99/62 98/62 Blood Pressure Mean 74 74 Pulse Ox 99 99 Oxygen Delivery Method Nasal Cannula Nasal Cannula Nasal Cannula Oxygen Flow Rate (L/min) 4 4 4 05/08/21 16:36 05/08/21 16:37 Temperature 97.1 F L Temperature Source Temporal Pulse Rate 59 L Respiratory Rate 18 Respiratory Effort Respiratory Depth Respiratory Pattern Blood Pressure 89/58 L Blood Pressure Mean 68 Pulse Ox 97 Oxygen Delivery Method Nasal Cannula Nasal Cannula Oxygen Flow Rate (L/min) 4 4 Positive well nourished and well developed Constitutional Narrative: GCS 15. Stable on her nasal cannula oxygen. General Appearance ED: well developed and NAD HEENT Reports moist mucous membranes normocephalic and atraumatic Eyes PERRL, EOMs intact bilaterally and conjunctivae normal General Eye ED: Yes normal appearance of both eyes Neck no lymphadenopathy and supple General: Negative for tenderness Chest Wall Chest Narrative: Tender palpation right anterior chest wall, no crepitus or ecchymosis. Chest: Negative for tenderness Resp normal respiratory effort and normal air movement Resp Narrative: Symmetric breath sounds. Effort and Inspection: symmetric chest movement; Negative for respiratory distress Cardio regular rate, regular rhythm and no murmurs Peripheral Pulses: pulses 2+ throughout GI normal to inspection, nondistended, normoactive bowel sounds and non-tender Palpation: Negative for guarding or rebound tenderness present Back/Spine no CVA tenderness and no thoracic nor lumbar tenderness Back/Spine Narrative: Upper back tenderness midline with no step-offs. There is ecchymosis parathoracic on the left side. Also ecchymosis abrasion right lumbar. No midline tenderness. Thoracic Spine / Upper Back: thoracic spinal tenderness Extremity normal to inspection Extremity Narrative: Negative logroll bilateral lower extremities. Active full range of motion x4. General Extremety ED: Negative for edema or tenderness General Extremity: Negative for edema Neuro oriented x3 and no sensory deficits noted Sensorium / Orientation: awake and alert Skin no rashes or lesions noted and no wounds MDM MDM MDM Narrative Medical decision making narrative: Patient alert and oriented x3 no signs of head trauma. Reports back chest wall pain. With her fall and injuries, trauma scans chest abdomen pelvis obtained noting fracture of right ribs 3 through 5, also superior endplate fractures of T5 and T6. She was initially treated fent anyl and additional dose was was giving. Her blood pressure was borderline in the 90s. She has not been taking her Xarelto there is no signs of bleeding. For pain control she did agree for admission. EKG sinus rhythm with no acute findings. Labs stable hemoglobin normal creatinine. Electrolytes are normal. I spoke with hospitalist, Dr. Romano, who evaluated the patient. Patient has been off her Xarelto since being discharged on the fifth, with her PE history, requests giving a dose in the ED. This was ordered. There is no bleeding issues from the fractures. Also patient's blood pressure slightly decreased at 89/58, fluids were started. He requested dexamethasone reporting she has been having issues with urinary output for the last 2 days. Bladder was not super distended on CT. He states he will order an MRI as an inpatient. Patient will be admitted to PCU instead MedSurg secondary to blood pressure issues. Lab Data Attestation: I reviewed the patient's lab results. Labs: Laboratory Results - last 24 hr 05/08/21 05/08/21 15:27 15:27 WBC 6.7 RBC 3.06 L Hgb 9.2 L Hct 30.4 L MCV 99.3 H MCH 30.1 MCHC 30.3 L RDW Std Deviation 50.1 H RDW Coeff of Immanuel 13.7 Plt Count 226 MPV 11.2 Immature Gran % (Auto) 0.300 Neut % (Auto) 66.2 Lymph % (Auto) 23.9 [place] % (Auto) 6.7 Eos % (Auto) 2.5 Baso % (Auto) 0.4 Absolute Neuts (auto) 4.4 Absolute Lymphs (auto) 1.60 Nucleated RBC % 0 Sodium 141 Potassium 3.7 Chloride 110 H Carbon Dioxide 25.0 Anion Gap 6 BUN 15 Creatinine 0.95 Estim Creat Clear Calc 62.64 Est GFR (MDRD) Af Amer 78 Est GFR (MDRD) Non-Af 65 BUN/Creatinine Ratio 15.8 Glucose 106 Calcium 9.0 Total Bilirubin 0.20 AST 11 L ALT 21 Alkaline Phosphatase 116 Total Protein 7.2 Albumin 3.3 Globulin 3.9 Albumin/Globulin Ratio 0.8 L Radiography Diagnostic Testing: Clinical Impression(s) from Imaging Studies Chest/Abdomen/Pelvis CT 05/08/21 14:57 IMPRESSION: Acute/subacute nondisplaced fractures of the anterolateral aspects of the right third-fifth ribs. Compression deformity of the superior endplates of T5 and T6, uncertain age. No acute finding in the abdomen and pelvis. Electronically Signed: Curtis Collins MD at 16:06 EDT Tel , Service support , EKG Initial EKG: Attestation: I personally reviewed and interpreted this EKG as follows: Comments: Sinus rate of 55, no ST or T wave changes. Critical Care Time Critical Care Time: Yes Critical care time (excluding procedures): 30-74 minutes, Discussing w/Patient &/or Family/Agility Instructor, Discussing w/Consultants, Arranging Admission or Transfer, Performing Direct Patient Care at Bedside and - (40 minutes. Reviewing records and patient management including blood pressure management.) Discharge Plan Dx/Rx/DC Orders Clinical Impression: Right rib fracture, Closed T5 fracture, Closed T6 spinal fracture, Fall Disposition Disposition: Acute Care [facility] Discharge Date/Time: 05/08/21 17:42
--- NOTE | 2021-05-08 17:07 | PCM.HP.STD ---
Documented by User: WILLIAM James 05/08/21 17:27 HPI - General General Date of Admission: 05/08/21 Date of Service: 05/08/21 Chief Complaint: Weakness, recurrent falls HPI Narrative LUIS A CUMMINGS, is a 55 F who presents with reports of recurrent falls at home. Patient was discharged approximately 2 weeks ago from [facility] to [facility] for PT and OT. Patient was there for approximately 3 days when she represented to the ER for nosebleeds. Patient at that time refused to go back to [facility] and went home with her brother and [id number]. Over the past week patient reports that she has fallen 3 times and has rib and back pain following falls. Patient is unaware of what medication she is taking as her brother and [id number] are helping her with her medications at their home. Patient reports that when she stands she feels like her legs give out and she is unable to hold herself up. Patient denies fever, chills, shortness of breath, chest pain, cough, nausea, vomiting, diarrhea, constipation. [facility] Medical History Abnormal cardiac enzyme level Acute and chronic respiratory failure Acute respiratory failure with hypoxia and hypercapnia LEIGH ANN (acute kidney injury) Anemia Anemia Anxiety and depression Back pain Bilateral peripheral pulmonary emboli BiPAP (biphasic positive airway pressure) dependence Breast infection Cancer Cardiology follow-up encounter Cardiopulmonary arrest with successful resuscitation Chest pain Chronic narcotic dependence Congestive heart failure COPD (chronic obstructive pulmonary disease) COPD exacerbation Coronary artery disease CPAP (continuous positive airway pressure) dependence Dependence on continuous supplemental oxygen Depression Diastolic dysfunction DVT (deep vein thrombosis) in DVT (deep venous thrombosis) Essential hypertension Former smoker GERD (gastroesophageal reflux disease) HLD (hyperlipidemia) Hx of cardiovascular stress test Hx of echocardiogram Hypertension Hypothyroidism Morbid obesity MSSA (methicillin susceptible Staphylococcus aureus) pneumonia Myocardial infarct Obesity On home oxygen therapy STEPHANIE (obstructive sleep apnea) Pulmonary embolism Restrictive lung disease Seizure disorder Seizures Sleep apnea SOB (shortness of breath) Syncope and collapse TIA (transient ischemic attack) TIA (transient ischemic attack) Wears dentures Wears glasses Home Medications levetiracetam 500 mg PO BID 11/29/15 [History Last Taken 04/05/21] albuterol sulfate 90 mcg/actuation aerosol inhaler 2 puff INHALATION Q4H PRN g 08/01/17 [History Last Taken 03/03/18] omeprazole 40 mg capsule,delayed release 40 mg PO DAILY 08/01/17 [History Last Taken 04/05/21] rivaroxaban 20 mg tablet 20 mg PO DAILY #90 tab 03/26/19 [Rx Last Taken 04/01/21] atorvastatin 80 mg tablet 80 mg PO DAILY 03/02/21 [History Last Taken Unknown] venlafaxine 75 mg capsule,extended release 24 hr 75 mg PO DAILY 03/02/21 [History Last Taken 03/22/21 07:30] Dulera 2 puff INHALATION Q12H PRN 03/15/21 [History Last Taken Unknown] magnesium 200 mg PO DAILY 03/15/21 [History Last Taken Unknown] furosemide 40 mg PO DAILY #0 tab 04/22/21 [Rx Last Taken Unknown] losartan 100 mg PO DAILY #0 tab 04/22/21 [Rx Last Taken 04/05/21] metoprolol succinate 100 mg PO QHS #0 tab 04/22/21 [Rx Last Taken Unknown] oxycodone 5 mg PO Q8H PRN 5 Days #10 cap 04/22/21 [Rx Last Taken Unknown] spironolactone 50 mg PO DAILY #0 tab 04/22/21 [Rx Last Taken 03/22/21 07:30] Fleet Enema 118 ml AL DAILY PRN 04/24/21 [History Last Taken Unknown] acetaminophen 650 mg PO Q4H PRN 04/24/21 [History Last Taken Unknown] acetaminophen 650 mg AL Q4H PRN 04/24/21 [History Last Taken Unknown] aluminum-magnesium hydroxide 30 ml PO Q4H PRN PRN 04/24/21 [History Last Taken Unknown] bisacodyl 10 mg AL DAILY PRN 04/24/21 [History Last Taken Unknown] dextromethorphan-guaifenesin 10 ml PO Q4H PRN PRN 04/24/21 [History Last Taken Unknown] magnesium hydroxide [Milk of Magnesia] 30 ml PO DAILY PRN 04/24/21 [History Last Taken Unknown] venlafaxine 37.5 mg PO DAILY 04/25/21 [History Last Taken Unknown] clonazepam 0.75 mg PO BID #20 tab 04/26/21 [Rx Last Taken Unknown] Allergy/AdvReac Type Severity Reaction Status Date / Time aspirin Allergy Hives Verified 04/24/21 16:22 ibuprofen Allergy Hives Verified 04/24/21 16:22 ketorolac tromethamine Allergy Angioedema Verified 04/24/21 16:22 [From Toradol] meperidine HCl [From Demerol] Allergy seizures Verified 04/24/21 21:12 nitroglycerin Allergy Angioedema Verified 04/24/21 16:22 nut - unspecified Allergy Hives Verified 04/24/21 16:22 Penicillins [PCN] Allergy Hives Verified 04/24/21 16:22 tramadol HCl [From Ultram] Allergy Angioedema Verified 04/24/21 16:22 BENTYL Allergy Itching Uncoded 04/24/21 16:22 Family History Brother Myocardial infarction Father Colon cancer Surgical History History of appendectomy History of cholecystectomy History of cholecystectomy History of hysterectomy History of left breast biopsy History of left heart catheterization (LHC) (~04/22/21) Hx of appendectomy S/P lumpectomy, left breast Social History household members: none Smoking Status: Former smoker quit date: 01/21/16 pack-years: 32 second hand exposure: Yes alcohol intake: never substance use type: does not use ROS Constitutional Constitutional: Reports weakness; Denies anorexia, chills, fatigue or malaise Cardiovascular Cardiovascular: Denies chest pain, edema, palpitations or syncope Respiratory/Chest Respiratory/Chest: Denies cough, shortness of breath at rest, shortness of breath with exertion or wheezing Gastrointestinal Gastrointestinal: Denies abdominal pain, diarrhea, dyspepsia, nausea or vomiting Genitourinary Genitourinary: Denies dysuria Musculoskeletal Musculoskeletal: Reports back pain; Denies extremity pain, joint pain or joint stiffness Integumentary Integumentary: Reports dry skin Neurologic Neurologic: Denies abnormal gait, abnormal speech, confusion, dizziness or focal weakness Psychiatric Psychiatric: Denies anxiety or depression Endocrine Endocrinology: Denies change in body appearance Hematologic/Lymphatic Hematologic/Lymphatic: Reports easy bleeding; Denies anemia or easy bruising Vital Signs Vital Signs Vital Signs: 05/08/21 14:36 05/08/21 14:37 05/08/21 15:00 Temperature 97.3 F L Temperature Source Oral Pulse Rate 57 L 57 L Respiratory Rate 16 16 Respiratory Effort Normal Non-Labored Respiratory Depth Shallow Respiratory Pattern Normal Blood Pressure 99/62 98/62 Blood Pressure Mean 74 74 Pulse Ox 99 99 Oxygen Delivery Method Nasal Cannula Nasal Cannula Nasal Cannula Oxygen Flow Rate (L/min) 4 4 4 05/08/21 16:36 Temperature Temperature Source Pulse Rate Respiratory Rate Respiratory Effort Respiratory Depth Respiratory Pattern Blood Pressure Blood Pressure Mean Pulse Ox Oxygen Delivery Method Nasal Cannula Oxygen Flow Rate (L/min) 4 Weight Weight: 275 lb 5.718 oz Body Mass Index (BMI) 44.4 Physical Exam Const alert, oriented x3 and no apparent distress General Appearance: cooperative HEENT normocephalic and head/scalp atraumatic Eyes conjunctivae normal and no scleral icterus Neck full ROM and supple General: trachea midline Resp normal respiratory effort and normal air movement Auscultation: diminished lung sounds Cardio regular rate, regular rhythm, S1 normal heart sound, S2 normal heart sound and peripheral pulses 2+ throughout Rate: bradycardia GI normal to inspection, nondistended, normoactive bowel sounds, soft to palpation and non-tender Extremity normal capillary refill and no clubbing, cyanosis or edema General Extremity: no tenderness to palpation of joints or extremities Skin General Skin Exam: no breakdown and turgor normal Lesions: no lesions Rashes: no rashes Neuro no focal motor deficits and no sensory deficits noted Speech: speech normal Motor Exam: strength 5/5 throughout; Negative for general weakness Psych thought process normal, cooperative and affect normal Appearance: appropriate Results Lab / Micro Data Result Diagrams: 05/08/21 15:27 05/08/21 15:27 Labs: Laboratory Results - last 24 hr 05/08/21 15:27: WBC 6.7, RBC 3.06 L, Hgb 9.2 L, Hct 30.4 L, MCV 99.3 H, MCH 30.1, MCHC 30.3 L, RDW Std Deviation 50.1 H, RDW Coeff of Immanuel 13.7, Plt Count 226, MPV 11.2, Immature Gran % (Auto) 0.300, Neut % (Auto) 66.2, Lymph % (Auto) 23.9, [place] % (Auto) 6.7, Eos % (Auto) 2.5, Baso % (Auto) 0.4, Absolute Neuts (auto) 4.4, Absolute Lymphs (auto) 1.60, Nucleated RBC % 0 05/08/21 15:27: Sodium 141, Potassium 3.7, Chloride 110 H, Carbon Dioxide 25.0, Anion Gap 6, BUN 15, Creatinine 0.95, Estim Creat Clear Calc 62.64, Est GFR (MDRD) Af Amer 78, Est GFR (MDRD) Non-Af 65, BUN/Creatinine Ratio 15.8, Glucose 106, Calcium 9.0, Total Bilirubin 0.20, AST 11 L, ALT 21, Alkaline Phosphatase 116, Total Protein 7.2, Albumin 3.3, Globulin 3.9, Albumin/Globulin Ratio 0.8 L Radiology Impression Chest/Abdomen/Pelvis CT 05/08/21 14:57 IMPRESSION: Acute/subacute nondisplaced fractures of the anterolateral aspects of the right third-fifth ribs. Compression deformity of the superior endplates of T5 and T6, uncertain age. No acute finding in the abdomen and pelvis. Electronically Signed: Curtis Collins MD at 16:06 EDT Tel , Service support , Assessment & Plan Assessment/Plan (1) Debility: (2) Rib fractures: QUALIFIERS: Encounter type: initial encounter Fracture type: closed Laterality: right Qualified Code(s): S22.41XA - Multiple fractures of ribs, right side, initial encounter for closed fracture (3) Compression fracture of T5 vertebra: QUALIFIERS: Encounter type: initial encounter Qualified Code(s): S22.050A - Wedge compression fracture of T5-T6 vertebra, initial encounter for closed fracture (4) Compression fracture of T6 vertebra: QUALIFIERS: Encounter type: initial encounter Qualified Code(s): S22.050A - Wedge compression fracture of T5-T6 vertebra, initial encounter for closed fracture PLAN: 1.Debility -Patient presents with low blood pressure but is unaware of what meds she is taking and how often she is taking them. Will admit to PCU for closer monitoring -PT and OT to eval and treat -Patient was recently discharged from [facility] to [facility] however patient left after less than a week and has been at home with her brother and [id number]. Continues to have weakness and inability to ambulate safely. Reports multiple falls over the past week -Chest CT shows fractures to right 3rd through 5th rib as well as T5 and T6 compression fractures likely secondary to falls as patient did not have these findings on previous chest x-ray from 04/24/2021 -Case management consulted for coordination of care to SNF for rehab, discussed with patient and she is amenable -Will continue home medications once verified 2. Rib fractures, right 3rd through 5th rib -Likely secondary to recent falls -CT negative for pneumothorax -Encourage of incentive spirometry to prevent atelectasis -Pain management regimen ordered -No fractures noted on chest x-ray from 04/24/2021 3. Compression fracture of the T5 and T6 vertebra -Likely secondary to recent falls -Demonstrated on CT, age undetermined. -No fractures noted on chest x-ray from 04/24/2021 -Pain management regimen ordered 4. Hypotension -Patient mildly hypotensive upon presentation to ER, will hold antihypertensives overnight -Vital signs per protocol -Patient received 2 500 mL boluses in ER, will provide gentle hydration We will continue patient's home medications for chronic diseases including COPD, depression and anxiety, seizure disorder, diastolic dysfunction. DVT prophylaxis-subcu Lovenox and SCDs This patient was seen by RAQUEL JamesC under the supervision of Dr. Romano. Documented by User: Dr. Nick Romano MD 05/08/21 19:22 HPI - General General Date of Admission: 05/08/21 Date of Service: 05/08/21 Chief Complaint: Fall. HPI Narrative This 55-year-old female with multiple recurrent admission recently, discharged on 04/22 after cardiac arrest, PE and then again admission from 04/24-04/26 for myoclonic jerking and altered mental status came to ER with recurrent fall at home. Patient was discharged to [facility] but she did not like it and went home. At home she has been failing recurrent about 2-3 times. She fell on right lateral 2 days ago and has pain over right posterior lateral chest and upper spine. She did not lose consciousness. She has been urinating and denies acute retention of urine for long time or overflow incontinence. She denies dizziness, vertigo and states her reason for fall is her legs could not hold her up. In ED, CT chest abdomen and pelvis with IV contrast was done. Acute trauma was ruled out by ER physician therefore admitted. He was found to have acute/subacute nondisplaced fracture of anterolateral aspect of the right 3rd-5th rib and compression deformity of superior endplate of T5 and T6 of uncertain age. No acute finding in abdomen and pelvis. [facility] Medical History Abnormal cardiac enzyme level Acute and chronic respiratory failure Acute respiratory failure with hypoxia and hypercapnia LEIGH ANN (acute kidney injury) Anemia Anemia Anxiety and depression Back pain Bilateral peripheral pulmonary emboli BiPAP (biphasic positive airway pressure) dependence Breast infection Cancer Cardiology follow-up encounter Cardiopulmonary arrest with successful resuscitation Chest pain Chronic narcotic dependence Congestive heart failure COPD (chronic obstructive pulmonary disease) COPD exacerbation Coronary artery disease CPAP (continuous positive airway pressure) dependence Dependence on continuous supplemental oxygen Depression Diastolic dysfunction DVT (deep vein thrombosis) in DVT (deep venous thrombosis) Essential hypertension Former smoker GERD (gastroesophageal reflux disease) HLD (hyperlipidemia) Hx of cardiovascular stress test Hx of echocardiogram Hypertension Hypothyroidism Morbid obesity MSSA (methicillin susceptible Staphylococcus aureus) pneumonia Myocardial infarct Obesity On home oxygen therapy STEPHANIE (obstructive sleep apnea) Pulmonary embolism Restrictive lung disease Seizure disorder Seizures Sleep apnea SOB (shortness of breath) Syncope and collapse TIA (transient ischemic attack) TIA (transient ischemic attack) Wears dentures Wears glasses Home Medications levetiracetam 500 mg PO BID 11/29/15 [History Last Taken 04/05/21] albuterol sulfate 90 mcg/actuation aerosol inhaler 2 puff INHALATION Q4H PRN g 08/01/17 [History Last Taken 03/03/18] omeprazole 40 mg capsule,delayed release 40 mg PO DAILY 08/01/17 [History Last Taken 04/05/21] rivaroxaban 20 mg tablet 20 mg PO DAILY #90 tab 03/26/19 [Rx Last Taken 04/01/21] atorvastatin 80 mg tablet 80 mg PO DAILY 03/02/21 [History Last Taken Unknown] venlafaxine 75 mg capsule,extended release 24 hr 75 mg PO DAILY 03/02/21 [History Last Taken 03/22/21 07:30] Dulera 2 puff INHALATION Q12H PRN 03/15/21 [History Last Taken Unknown] magnesium 200 mg PO DAILY 03/15/21 [History Last Taken Unknown] furosemide 40 mg PO DAILY #0 tab 04/22/21 [Rx Last Taken Unknown] losartan 100 mg PO DAILY #0 tab 04/22/21 [Rx Last Taken 04/05/21] metoprolol succinate 100 mg PO QHS #0 tab 04/22/21 [Rx Last Taken Unknown] oxycodone 5 mg PO Q8H PRN 5 Days #10 cap 04/22/21 [Rx Last Taken Unknown] spironolactone 50 mg PO DAILY #0 tab 04/22/21 [Rx Last Taken 03/22/21 07:30] Fleet Enema 118 ml AL DAILY PRN 04/24/21 [History Last Taken Unknown] acetaminophen 650 mg PO Q4H PRN 04/24/21 [History Last Taken Unknown] acetaminophen 650 mg AL Q4H PRN 04/24/21 [History Last Taken Unknown] aluminum-magnesium hydroxide 30 ml PO Q4H PRN PRN 04/24/21 [History Last Taken Unknown] bisacodyl 10 mg AL DAILY PRN 04/24/21 [History Last Taken Unknown] dextromethorphan-guaifenesin 10 ml PO Q4H PRN PRN 04/24/21 [History Last Taken Unknown] magnesium hydroxide [Milk of Magnesia] 30 ml PO DAILY PRN 04/24/21 [History Last Taken Unknown] venlafaxine 37.5 mg PO DAILY 04/25/21 [History Last Taken Unknown] clonazepam 0.75 mg PO BID #20 tab 04/26/21 [Rx Last Taken Unknown] Allergy/AdvReac Type Severity Reaction Status Date / Time aspirin Allergy Hives Verified 04/24/21 16:22 ibuprofen Allergy Hives Verified 04/24/21 16:22 ketorolac tromethamine Allergy Angioedema Verified 04/24/21 16:22 [From Toradol] meperidine HCl [From Demerol] Allergy seizures Verified 04/24/21 21:12 nitroglycerin Allergy Angioedema Verified 04/24/21 16:22 nut - unspecified Allergy Hives Verified 04/24/21 16:22 Penicillins [PCN] Allergy Hives Verified 04/24/21 16:22 tramadol HCl [From Ultram] Allergy Angioedema Verified 04/24/21 16:22 BENTYL Allergy Itching Uncoded 04/24/21 16:22 Family History Brother Myocardial infarction Father Colon cancer Surgical History History of appendectomy History of cholecystectomy History of cholecystectomy History of hysterectomy History of left breast biopsy History of left heart catheterization (LHC) (~04/22/21) Hx of appendectomy S/P lumpectomy, left breast Social History household members: none Smoking Status: Former smoker quit date: 01/21/16 pack-years: 32 second hand exposure: Yes alcohol intake: never substance use type: does not use Physical Exam Narrative General: Alert, Oriented x3, Cooperative HEENT: Atraumatic, PERRLA, EOMI, Normocephalic Oral: No Gingival or Mucosal Lesions/ Ulcerations Neck: Supple, No JVD, Negative Carotid Bruits Lungs: Air entry diminished in bilateral lung bases. No crepitation/rhonchi Cardiovascular: Regular rate, Regular Rhythm, Normal S1, Normal S2, No murmurs Abdomen: On rectal exam, annual sphincter tone present, south although little decreased, seems chronic. BS present, Soft, Non Tender, Non-Distended : Urinary bladder not distended. Perineal sensation intact. No suprapubic tenderness. Extremities: No edema, Capillary Refill Less than 3 Seconds Skin: Bruise over right posterior lateral chest. Musculoskeletal: Tenderness over right posterior lateral chest over the 3rd-5th rib. Tenderness over upper thoracic spine. No Tenderness to Palpation of Joints or Extremities Neurological: Strength in lower extremity 4+/5 at major joints lower extremity. Psych/Mental Status: Flat affect Results Lab / Micro Data Result Diagrams: 05/08/21 15:27 05/08/21 15:27 Assessment & Plan Assessment/Plan (1) Right rib fracture: (2) Closed T5 fracture: PLAN: This patient was seen in conjunction with PRIETO Teran. I have independently interviewed and examined the patient and reviewed pertinent history, examination findings, laboratory and plan of management. I have reviewed the note and agree with the documented findings with the few additional points. In brief, patient is a 55-year-old female with multiple comorbidities including morbid obesity with pseudotumor cerebri with recurrent admission recently came to ER with fall about 2 days ago. She denies syncope or convulsions. She has history of seizure and is on Keppra. She denies loss of consciousness. CT chest, abdomen and pelvis with IV contrast shows right 3rd-5th rib fracture along with compressive deformity of superior endplate of T5 and T6 of uncertain age. Patient does not have loss of perineal sensation or urine retention. And on center felt south. Therefore, no signs symptoms of cord compression or acute severe neurological deficit. Although MRI ordered but cannot be done emergently because of weekend, therefore dexamethasone 10 mg IV given in ED. CT does not show PE or acute finding abdomen and pelvis. Patient on Xarelto for history of DVT and PE. She also has history of seizure and is on Keppra. Multiple other comorbidities include obstructive sleep apnea, COPD, chronic narcotic dependence, hypothyroidism, anxiety and depression. For home medication reconciliation done. MRI thoracic spine ordered. Discussed with the ER physician. Her blood pressure was low and is getting fluid. Most recent 114/64. Twelve-lead EKG shows sinus bradycardia 55 bpm. QTc 466 ms. PT and OT ordered. He also has history of blurry vision most probably due to benign idiopathic intracranial hypertension/pseudotumor cerebri and has appointment with impregnator operator in 1 to 2 weeks. I have discussed my assessment with PRIETO Teran and orders have been reviewed. Clinical Impression(s) from Imaging Studies Chest/Abdomen/Pelvis CT 05/08/21 14:57 IMPRESSION: Acute/subacute nondisplaced fractures of the anterolateral aspects of the right third-fifth ribs. Compression deformity of the superior endplates of T5 and T6, uncertain age. No acute finding in the abdomen and pelvis. Charges/Coding Visit Charges Inpatient E&M: 24208 Init Hosp L3
[2021-05-08] MEDS: Lactated Ringers 1,000 ML 100 ML IV (18:35)
[2021-05-08] MEDS: dexAMETHasone 10 MG/ML Vial IV (18:35)
[2021-05-08] MEDS: Rivaroxaban 20 MG Tablet PO (18:35)
[2021-05-08] MEDS: Pantoprazole Sodium 40 MG Tablet PO (18:44)
[2021-05-08] MEDS: 0.9% Saline Lock 10 ML Syringe IV (19:27)
[2021-05-08] MEDS: clonazePAM 0.5 MG Tablet 0.75 MG PO (20:46)
[2021-05-08] MEDS: levETIRAcetam 500 MG Tablet PO (20:47)
[2021-05-08] MEDS: Acetaminophen 325 MG Tablet 650 MG PO (21:01)
[2021-05-09] VITALS (13 sets, daily range): BP systolic 93–117; BP diastolic 62–68; PULSE 67–85; RESP 16–20; TEMP 36.4–36.8; O2SAT 95–98
[2021-05-09] MEDS: fentaNYL 100 MCG/2 ML Ampul 50 MCG IV ×4 (01:13→15:56)
--- NOTE | 2021-05-09 02:08 | NURSING ---
PANDEMIC DOCUMENTATION
[2021-05-09 05:38] LABS: Absolute Lymphocyte Count 0.61 X10^3/uL (0.83-4.51); Absolute Neutrophil Count 3.7 X10^3/uL (2.0-7.7); Basophil# 0.01 X10^3/uL; Basophil% 0.2 % (0-1); Hematocrit 30.6 % (37-47); Hemoglobin 9.3 g/dL (12.0-15.0); Lymphocyte # 0.61 X10^3/ul (0.83-4.51); Lymphocyte % 13.9 % (19-41); Mean Corp Hgb Conc 30.4 g/dL (32-36); Mean Corpuscular Hgb 29.9 pg (27.0-32.0); Mean Corpuscular Volume 98.4 fL (81-99); Mean Platelet Vol. 11.4 fl (6.2-12.0); Monocyte# 0.07 X10^3/uL; Monocyte% 1.6 % (0-10); NRBC Flagged by Analyzer 0 % (0-5); Neutrophil # 3.68 X10^3/uL (2.7-7.7); Neutrophil % 83.8 % (47-70); Platelet Count 211 K/mm3 (150-450); RBC Distribution Width CV 13.4 % (11.6-14.6); RBC Distribution Width SD 48.3 fl (35.1-43.9); Red Blood Count 3.11 M/mm3 (4.2-5.4); White Blood Count 4.4 K/mm3 (4.4-11.0)
[2021-05-09 06:11] LABS: Anion Gap 7 (5-15); BUN 11 mg/dL (7-18); BUN/Creat Ratio 13.8 RATIO (10-20); Calcium,Total 9.4 mg/dL (8.5-10.1); Chloride 107 mmol/L (98-107); EST Glomerular Filtration Rate 80 mL/min (>60); Est Glom Filt Rate - Afr Amer 96 mL/min (>60); Estimated Creatinine Clearance 74.38 ml/min; Glucose 152 mg/dL (74-106); Potassium 4.1 mmol/L (3.5-5.1); Sodium Level 139 mmol/L (136-145)
[2021-05-09] MEDS: 0.9% Saline Lock 10 ML Syringe IV (07:42)
[2021-05-09] MEDS: oxyCODONE 5 MG Tablet PO ×2 (07:44→18:31)
[2021-05-09] MEDS: Acetaminophen 325 MG Tablet 650 MG PO ×2 (08:26→20:35)
[2021-05-09] MEDS: clonazePAM 0.5 MG Tablet 0.75 MG PO ×2 (08:27→20:34)
[2021-05-09] MEDS: dexAMETHasone 4 MG Tablet PO ×2 (08:28→12:25)
--- NOTE | 2021-05-09 09:00 | MRI_ITS ---
History: fall with throacic spine fracture Technique: T1 and T2 MR imaging of the thoracic spine performed without contrast enhancement in axial and sagittal planes. Findings: Abnormal signal within the T4 vertebral body consistent with hemangioma. Bone marrow signal intensity is otherwise normal. Alignment of the thoracic vertebral bodies is normal. No disc space narrowing. No disc herniation. Caliber of the spinal canal and neural foramen is normal. Thoracic cord is normal. Paraspinal soft tissues are normal. Minimal right pleural effusion. IMPRESSION: No evidence of acute thoracic spine fracture. Normal thoracic cord. at 1526 Reported and signed by: Faisal Cruz MD Electronically Signed: Faisal Cruz MD at 15:25 EDT Tel , Service support , MRI/Spine Thoracic (Routine)
[2021-05-09] MEDS: Rivaroxaban 20 MG Tablet PO (10:42)
[2021-05-09] MEDS: Venlafaxine XR 75 MG Capsule PO (10:42)
[2021-05-09] MEDS: Magnesium Chloride 64 MG Delay Rel.Tablet 128 MG PO (10:42)
[2021-05-09] MEDS: Pantoprazole Sodium 40 MG Tablet PO (10:42)
[2021-05-09] MEDS: levETIRAcetam 500 MG Tablet PO ×2 (10:42→20:35)
[2021-05-09] MEDS: Spironolactone 50 MG Tablet PO (10:42)
--- NOTE | 2021-05-09 14:35 | NURSING ---
This RN reviewed SN charting
--- NOTE | 2021-05-09 15:45 | CASEMGMT ---
Social Work Consult: skilled nursing placement. Informant: RN ANJALI. Met with patient and patient [id number], Deanne in room. Introduced self and social media specialist role. Patient agreeable to speak with this social media specialist and provided verbal permission for this social media specialist to speak openly with Deanne present. This social media specialist broached topic of fdc placement. Patient is agreeable to fdc placement. This social media specialist provided patient with patient with list of nursing homes in relationship to patient geographical region and insurance. Patient first choices is [facility], second: [facility] and third: [facility]. Patient has been living with brother and [id number] as patient has not been able to care for self. Patient has a history of placement in [facility] and does not wish to return there. Telephone call to [facility], no answer. voicemail left inquiring if [facility] accepts [facility]. Telephone call to [facility] at [facility]. No open beds. Telephone call to [facility], admissions has already left for the day and recommend for social work to call back tomorrow. Patient not medically cleared yet per medical team. Will continue to follow. Anthony CARTER, HARSHAD
--- NOTE | 2021-05-09 16:56 | PN.HOSP_ITS ---
Subjective Subjective Patient has just returned from MRI and is complaining of back pain. She is agreeable to return to facility as long as is not [facility]. Objective Data Objective Data Vital Signs: Vital Signs Temp Pulse Resp BP Pulse Ox 98.2 F 76 18 99/62 97 05/09/21 14:17 05/09/21 14:17 05/09/21 14:17 05/09/21 14:17 05/09/21 14:17 Oxygen Flow Rate (L/min) 3 Oxygen Delivery Method Nasal Cannula Weight: 123 kg Body Mass Index (BMI) 43.4 Intake & Output: Intake and Output for Last 24 Hours 05/07/21 05/08/21 05/09/21 23:59 23:59 23:59 Intake Total 1000 / 1000 1300 / 1300 Balance 1000 / 1000 1300 / 1300 Medical Nutrition Assessment Dietitian: Malnutrition Criteria Met Start: 05/09/21 10:24 Freq: Status: Active Protocol: Document 05/09/21 10:25 SAMRA (Rec: 05/09/21 10:27 [facility] [id number]) Nutrition Malnutrition Evidence of Malnutrition Exists Yes Malnutrition (severe): Acute Illness/Injury Evidenced By Suboptimal Energy Intake ( Severe),Weight Loss (Severe) Clinical Problem Acute Disease or Injury Related Malnutrition Etiology related to of spouse and recent health issues making pt unable to consume adequate nutrition to meet pt estimated nutritional needs Signs/Symptoms as evidenced by decreased po intake and wt loss of 5.3% x < 1 month Status Active Problem Altered Nutrient-Related Laboratory Values Etiology related to steroid administration Signs/Symptoms as evidenced by gluc 152 Status Active Problem Recommendation Dietitian Recommendations/Changes Will continue Cardiac diet Will provide 120 ml ensure compact w/ medpass 4x/day d/t signs/symptoms of malnutrition Monitor need for consistent carbohydrates of gluc worsens Lab / Micro Data Result Diagrams: 05/09/21 04:49 05/09/21 04:49 Labs: Laboratory Results - last 24 hr 05/09/21 04:49: WBC 4.4, RBC 3.11 L, Hgb 9.3 L, Hct 30.6 L, MCV 98.4, MCH 29.9, MCHC 30.4 L, RDW Std Deviation 48.3 H, RDW Coeff of Immanuel 13.4, Plt Count 211, MPV 11.4, Immature Gran % (Auto) 0.500, Neut % (Auto) 83.8 H, Lymph % (Auto) 13.9 L, Sherman % (Auto) 1.6, Eos % (Auto) 0.0, Baso % (Auto) 0.2, Absolute Neuts (auto) 3.7, Absolute Lymphs (auto) 0.61 L, Nucleated RBC % 0 05/09/21 04:49: Sodium 139, Potassium 4.1, Chloride 107, Carbon Dioxide 25.0, Anion Gap 7, BUN 11, Creatinine 0.80, Estim Creat Clear Calc 74.38, Est GFR (MDRD) Af Amer 96, Est GFR (MDRD) Non-Af 80, BUN/Creatinine Ratio 13.8, Glucose 152 H, Calcium 9.4 Micro: Microbiology 05/08/21 17:05 Nasal Secretion SARS-CoV-2 Antigen (Rapid) - Final Radiography Diagnostic Testing: Radiology Impression Thoracic Spine MRI 05/09/21 09:00 Physical Exam Const alert and oriented x3 Constitutional Narrative: Morbidly obese white female lying in bed, appears to be uncomfortable at this time, nontoxic, complaining of back pain Exam Limitations: no limitations Nutritional Appearance: morbidly obese HEENT head/scalp atraumatic and moist oral mucous membranes Head and Scalp: normocephalic Resp normal respiratory effort, no retractions, no use of accessory muscles and clear to auscultation bilaterally Auscultation: Negative for crackles, rales, rhonchi or wheezes Cardio regular rate, regular rhythm, S1 normal heart sound, S2 normal heart sound, no murmurs, no rub, no gallops, no clicks and no JVD GI normal to inspection, nondistended, normoactive bowel sounds, soft to palpation, non-tender and non-distended; Negative for hepatosplenomegaly Extremity no clubbing, cyanosis or edema Peripheral Pulses: Yes pulses 2+ throughout Neuro oriented x3, moves all extremities and no focal motor deficits Sensorium / Orientation: awake and alert Psych Psych Narrative: Flat affect Mood & Affect: depressed Assessment & Plan Assessment/Plan (1) Right rib fracture: (2) Fall: (3) Compression fracture of T6 vertebra: QUALIFIERS: Encounter type: initial encounter Qualified Code(s): S22.050A - Wedge compression fracture of T5-T6 vertebra, initial encounter for closed fracture (4) Compression fracture of T5 vertebra: QUALIFIERS: Encounter type: initial encounter Qualified Code(s): S22.050A - Wedge compression fracture of T5-T6 vertebra, initial encounter for closed fracture (5) Chronic anemia: PLAN: Debility -Patient with recent discharges from [place] to [facility] but patient left AMA from [facility] and has had multiple falls at home since leaving. -Had marked debility at discharge so the above is not surprising -CT of the chest done in the emergency department on admission secondary to pain complaints and this shows rib fractures -PT/OT consultations -Patient is amenable to repeat SNF placement and this is in progress -Once pain is controlled well enough on oral medications patient will be ready for discharge Rib fractures-right third through fifth ribs -Stable fractures -No pneumothorax -Continue to encourage incentive spirometry to prevent atelectasis and pneumonia -Continue pain medications Compression fracture of T5 and 6 vertebrae -MRI performed and no findings of fractures or cord involvement noted on MRI -Suspect this is an old fracture without any acute involvement -Continue to monitor -Treatment for pain -Stop Decadron Hypotension -Continue to hold Lasix -Hold losartan -Hold metoprolol -I question whether or not her falls are related to orthostasis from her antihypertensives at home -We will reinitiate medications when able but may need lower doses Chronic anemia -Hemoglobin is relatively stable at this time History of PE/DVT -Continue Xarelto Recent diagnosis of breast cancer -Recently underwent biopsy by Dr. 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 -Had postoperative abscess for which antibiotics have been completed Chronic anemia -Hemoglobin is stable -Continue to monitor with full anticoagulation STEPHANIE -Continue nocturnal BiPAP at 22/18 COPD/restrictive lung disease -Secondary to tobacco abuse history and morbid obesity -Aerosols as ordered -Pulmonary following HFpEF -Patient with history of diastolic dysfunction -Currently stable and compensated -Continue to monitor -Hold home losartan and metoprolol -Continue Aldactone -Hold Lasix DVT prophylaxis -Continue Xarelto CODE STATUS -Full code Charges/Coding Visit Charges Inpatient E&M: 30453 Subs Hosp L2
--- NOTE | 2021-05-09 17:25 | CASEMGMT ---
Social Work Telephone call from [facility]. Do not accept [facility]WIGE under skilled services and they do not currently have any long-term female beds open. Will continue to follow. Anthony CARTER, HARSHAD
[2021-05-10] VITALS (12 sets, daily range): BP systolic 110–122; BP diastolic 70–75; PULSE 53–70; RESP 16–17; TEMP 36.3–36.7; O2SAT 96–98
[2021-05-10] MEDS: oxyCODONE 5 MG Tablet PO ×4 (04:54→18:46)
[2021-05-10 06:56] LABS: Absolute Neutrophil Count 7.2 X10^3/uL (2.0-7.7); Basophil# 0.01 X10^3/uL; Basophil% 0.1 % (0-1); Hematocrit 29.3 % (37-47); Lymphocyte % 11.6 % (19-41); Mean Corp Hgb Conc 30.7 g/dL (32-36); Mean Corpuscular Hgb 29.7 pg (27.0-32.0); Mean Corpuscular Volume 96.7 fL (81-99); Mean Platelet Vol. 11.7 fl (6.2-12.0); Monocyte% 4.6 % (0-10); NRBC Flagged by Analyzer 0 % (0-5); Neutrophil # 7.19 X10^3/uL (2.7-7.7); Neutrophil % 83.2 % (47-70); Platelet Count 233 K/mm3 (150-450); RBC Distribution Width CV 13.2 % (11.6-14.6); RBC Distribution Width SD 47.4 fl (35.1-43.9); Red Blood Count 3.03 M/mm3 (4.2-5.4); White Blood Count 8.6 K/mm3 (4.4-11.0)
[2021-05-10 07:19] LABS: Anion Gap 7 (5-15); BUN 14 mg/dL (7-18); BUN/Creat Ratio 19.3 RATIO (10-20); Calcium,Total 9.4 mg/dL (8.5-10.1); Chloride 104 mmol/L (98-107); Creatinine, Serum 0.73 mg/dL (0.55-1.02); EST Glomerular Filtration Rate 88 mL/min (>60); Est Glom Filt Rate - Afr Amer 107 mL/min (>60); Estimated Creatinine Clearance 81.51 ml/min; Glucose 165 mg/dL (74-106); Potassium 4.1 mmol/L (3.5-5.1); Sodium Level 138 mmol/L (136-145)
[2021-05-10] MEDS: levETIRAcetam 500 MG Tablet PO ×2 (09:14→21:09)
[2021-05-10] MEDS: Spironolactone 50 MG Tablet PO (09:14)
[2021-05-10] MEDS: Rivaroxaban 20 MG Tablet PO (09:14)
[2021-05-10] MEDS: Venlafaxine XR 75 MG Capsule PO (09:14)
[2021-05-10] MEDS: Pantoprazole Sodium 40 MG Tablet PO (09:14)
[2021-05-10] MEDS: clonazePAM 0.5 MG Tablet 0.75 MG PO ×2 (09:15→21:09)
[2021-05-10] MEDS: Magnesium Chloride 64 MG Delay Rel.Tablet 128 MG PO (09:15)
[2021-05-10] MEDS: Acetaminophen 325 MG Tablet 650 MG PO ×2 (09:15→17:09)
--- NOTE | 2021-05-10 09:17 | CASEMGMT ---
Readmission chart review: 04/15/21-04/22/21 Cardiopulm arrest w/ [facility], dispo'd to [facility] 04/24-04/26/21 Possible seizure disorder-OBS, dispo'd to Home 05/08/21 Debility, weakness Pt came in on 04/15/21 as an arrest and was in ICU. See CM assessment 04/18/21. Pt with recent loss of and breast cancer dx. Pt was discharged to [facility] for rehab then returned for possible seizure disorder 2 days later. Pt then decided she would like to go home with family support but has since fallen multiple times, now with rib fx's and compression fx's s/p falls. Pt is agreeable to SNF placement again and [facility]. to follow for any further discharge planning/needs. Delmis STEWART CM
--- NOTE | 2021-05-10 09:37 | CASEMGMT ---
WILNER faxed referral to [facility]. WILNER also called Shila at [facility] regarding referral. Await response. Kathryn Corral LEATHER ROLLER JAE
--- NOTE | 2021-05-10 14:02 | CASEMGMT ---
WILNER called Shila at [facility] and she said she has not had a chance to look at the referral yet. WILNER spoke with patient and let her know that [facility] and [facility] do not have beds. WILNER told her SW is waiting on [facility] to get back to . WILNER asked if she has any other choices in case [facility] can't take her. She said she does not know and asked SW to call her sister in law. WILNER called patient's sister in law Deanne and told her above. She asked what other facilities were in [place]. WILNER told her [facility] is the only one left in [place] that accepts her insurance. WILNER told her the 2 in [place] and she told SW to send referrals to [facility] and then [facility]. She does still want to see if [facility] can take patient first. WILNER did call Nadia with [facility] regarding referral and also faxed referral. Awaiting responses from [facility] and [facility]. Kathryn ROWE
--- NOTE | 2021-05-10 16:16 | PN.HOSP_ITS ---
Subjective Subjective Patient states she is feeling better today but still having pain. She states that the pain medication does help but she feels that she is due at the time of my evaluation. We are still currently looking for a place for her to discharge to for continued rehab. Objective Data Objective Data Vital Signs: Vital Signs Temp Pulse Resp BP Pulse Ox 97.9 F 70 16 122/75 H 96 05/10/21 15:00 05/10/21 15:00 05/10/21 15:00 05/10/21 15:00 05/10/21 15:00 Oxygen Flow Rate (L/min) 3 Oxygen Delivery Method Nasal Cannula Weight: 124.2 kg Body Mass Index (BMI) 43.4 Intake & Output: Intake and Output for Last 24 Hours 05/08/21 05/09/21 05/10/21 23:59 23:59 23:59 Intake Total 1000 / 1000 1300 / 1300 Balance 1000 / 1000 1300 / 1300 Medical Nutrition Assessment Dietitian: Malnutrition Criteria Met Start: 05/09/21 10:24 Freq: Status: Active Protocol: Document 05/09/21 10:25 SAMRA (Rec: 05/09/21 10:27 [facility] [id number]) Nutrition Malnutrition Evidence of Malnutrition Exists Yes Malnutrition (severe): Acute Illness/Injury Evidenced By Suboptimal Energy Intake ( Severe),Weight Loss (Severe) Clinical Problem Acute Disease or Injury Related Malnutrition Etiology related to of spouse and recent health issues making pt unable to consume adequate nutrition to meet pt estimated nutritional needs Signs/Symptoms as evidenced by decreased po intake and wt loss of 5.3% x < 1 month Status Active Problem Altered Nutrient-Related Laboratory Values Etiology related to steroid administration Signs/Symptoms as evidenced by gluc 152 Status Active Problem Recommendation Dietitian Recommendations/Changes Will continue Cardiac diet Will provide 120 ml ensure compact w/ medpass 4x/day d/t signs/symptoms of malnutrition Monitor need for consistent carbohydrates of gluc worsens Lab / Micro Data Result Diagrams: 05/10/21 06:04 05/10/21 06:04 Labs: Laboratory Results - last 24 hr 05/10/21 06:04: WBC 8.6, RBC 3.03 L, Hgb 9.0 L, Hct 29.3 L, MCV 96.7, MCH 29.7, MCHC 30.7 L, RDW Std Deviation 47.4 H, RDW Coeff of Immanuel 13.2, Plt Count 233, MPV 11.7, Immature Gran % (Auto) 0.500, Neut % (Auto) 83.2 H, Lymph % (Auto) 11.6 L, [place] % (Auto) 4.6, Eos % (Auto) 0.0, Baso % (Auto) 0.1, Absolute Neuts (auto) 7.2, Absolute Lymphs (auto) 1.00, Nucleated RBC % 0 05/10/21 06:04: Sodium 138, Potassium 4.1, Chloride 104, Carbon Dioxide 27.0, Anion Gap 7, BUN 14, Creatinine 0.73, Estim Creat Clear Calc 81.51, Est GFR (MDRD) Af Amer 107, Est GFR (MDRD) Non-Af 88, BUN/Creatinine Ratio 19.3, Glucose 165 H, Calcium 9.4 Micro: Microbiology 05/08/21 17:05 Nasal Secretion SARS-CoV-2 Antigen (Rapid) - Final Physical Exam Const alert and oriented x3 Constitutional Narrative: Morbidly obese white female lying in bed, still appears to be uncomfortable but much more comfortable than yesterday, nontoxic General Appearance: cooperative Exam Limitations: no limitations Nutritional Appearance: morbidly obese HEENT normocephalic, head/scalp atraumatic and moist oral mucous membranes Head and Scalp: normocephalic Eyes no scleral icterus Neck full ROM General: trachea midline Resp normal respiratory effort, normal air movement, no retractions, no use of accessory muscles and clear to auscultation bilaterally Auscultation: diminished lung sounds; Negative for crackles, rales, rhonchi or wheezes Cardio regular rate, regular rhythm, S1 normal heart sound, S2 normal heart sound, no murmurs, no rub, no gallops, no clicks, no JVD and peripheral pulses 2+ throughout Rate: bradycardia GI normal to inspection, nondistended, normoactive bowel sounds, soft to palpation, non-tender and non-distended; Negative for hepatosplenomegaly Extremity normal capillary refill and no clubbing, cyanosis or edema General Extremity: no tenderness to palpation of joints or extremities Peripheral Pulses: Yes pulses 2+ throughout Skin General Skin Exam: no breakdown and turgor normal Lesions: no lesions Rashes: no rashes Neuro oriented x3, moves all extremities and no focal motor deficits Neuro Narrative: Significant generalized weakness Sensorium / Orientation: awake and alert Speech: speech normal Motor Exam: Negative for general weakness Psych thought process normal, cooperative and affect normal Psych Narrative: Flat affect Appearance: appropriate Mood & Affect: depressed Assessment & Plan Assessment/Plan (1) Right rib fracture: (2) Fall: (3) Compression fracture of T6 vertebra: QUALIFIERS: Encounter type: initial encounter Qualified Code(s): S22.050A - Wedge compression fracture of T5-T6 vertebra, initial encounter for closed fracture (4) Compression fracture of T5 vertebra: QUALIFIERS: Encounter type: initial encounter Qualified Code(s): S22.050A - Wedge compression fracture of T5-T6 vertebra, initial encounter for closed fracture (5) Chronic anemia: PLAN: Debility -Patient with recent discharges from [place] to [facility] but patient left AMA from [facility] and has had multiple falls at home since leaving. -Had marked debility at discharge so the above is not surprising -CT of the chest done in the emergency department on admission secondary to pain complaints and this shows rib fractures -PT/OT consultations -Patient is amenable to repeat SNF placement--> placement is currently pending at this time as we are awaiting acceptance -Patient is medically stable to go Rib fractures-right third through fifth ribs -Stable fractures -No pneumothorax -Continue to encourage incentive spirometry to prevent atelectasis and pneumonia -Continue pain medications--> patient does understand that we will not completely be able to obliterate her pain but does indicate that the pain improves with her pain medication -Patient is high risk for pneumonia Compression fracture of T5 and 6 vertebrae -MRI performed and no findings of fractures or cord involvement noted on MRI -Suspect this is an old fracture without any acute involvement -Continue to monitor -Treatment for pain -Stop Decadron Hypotension -Resolved--> will slowly reintroduce antihypertensives starting with metoprolol as noted below -Continue to hold Lasix -Continue to hold losartan -We will restart low-dose metoprolol at 25 mg daily (home dose 100 mg daily) -I question whether or not her falls are related to orthostasis from her antihypertensives at home Chronic anemia -Hemoglobin is relatively stable at this time History of PE/DVT -Continue Xarelto Recent diagnosis of breast cancer -Recently underwent biopsy by Dr. 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 -Had postoperative abscess for which antibiotics have been completed -Cont outpt f/u Chronic anemia -Hemoglobin is stable -Continue to monitor with full anticoagulation STEPHANIE -Continue nocturnal BiPAP at COPD/restrictive lung disease -Secondary to tobacco abuse history and morbid obesity -Aerosols as ordered -Pulmonary following HFpEF -Patient with history of diastolic dysfunction -Currently stable and compensated -Continue to monitor -Cpnt to hold home losartan -Restart metoprolol however will restart at a much lower dose 25 mg daily from 100 mg daily -Continue Aldactone -Hold Lasix MO -BMI is 44.0 -Recommend weight loss -Complicates overall treatment, prognosis, outcomes DVT prophylaxis -Continue Xarelto CODE STATUS -Full code Charges/Coding Visit Charges Inpatient E&M: 40491 Subs Hosp L2
[2021-05-10] MEDS: Metoprolol(XL)Succ 25 MG Tablet PO (17:06)
[2021-05-11] VITALS (7 sets, daily range): BP systolic 97–139; BP diastolic 57–82; PULSE 53–86; RESP 18; TEMP 36.6–36.7; O2SAT 98–139
[2021-05-11] MEDS: Acetaminophen 325 MG Tablet 650 MG PO (06:16)
[2021-05-11] MEDS: oxyCODONE 5 MG Tablet PO (06:17)
[2021-05-11 06:46] LABS: Absolute Lymphocyte Count 2.47 X10^3/uL (0.83-4.51); Absolute Neutrophil Count 3.9 X10^3/uL (2.0-7.7); Basophil# 0.01 X10^3/uL; Basophil% 0.1 % (0-1); Eosinophil# 0.03 X10^3/uL; Eosinophils% 0.4 % (0-5); Hematocrit 29.5 % (37-47); Hemoglobin 9.1 g/dL (12.0-15.0); Lymphocyte # 2.47 X10^3/ul (0.83-4.51); Mean Corp Hgb Conc 30.8 g/dL (32-36); Mean Corpuscular Hgb 30.1 pg (27.0-32.0); Mean Corpuscular Volume 97.7 fL (81-99); Mean Platelet Vol. 11.1 fl (6.2-12.0); Monocyte# 0.47 X10^3/uL; Monocyte% 6.9 % (0-10); NRBC Flagged by Analyzer 0 % (0-5); Neutrophil # 3.85 X10^3/uL (2.7-7.7); Neutrophil % 56.2 % (47-70); Platelet Count 195 K/mm3 (150-450); RBC Distribution Width CV 13.5 % (11.6-14.6); RBC Distribution Width SD 48.6 fl (35.1-43.9); Red Blood Count 3.02 M/mm3 (4.2-5.4); White Blood Count 6.9 K/mm3 (4.4-11.0)
[2021-05-11 07:17] LABS: Anion Gap 7 (5-15); BUN 19 mg/dL (7-18); Calcium,Total 9.1 mg/dL (8.5-10.1); Chloride 102 mmol/L (98-107); Creatinine, Serum 0.61 mg/dL (0.55-1.02); EST Glomerular Filtration Rate 107 mL/min (>60); Est Glom Filt Rate - Afr Amer 130 mL/min (>60); Estimated Creatinine Clearance 97.55 ml/min; Glucose 92 mg/dL (74-106); Potassium 3.8 mmol/L (3.5-5.1); Sodium Level 139 mmol/L (136-145)
--- NOTE | 2021-05-11 08:57 | CASEMGMT ---
WILNER received a call from Nadia with [facility]. She said they can accept patient. WILNER told her that [facility] is her first choice so if they say not then WILNER will let her know. She said patient can come today if she ends up going to [place]. WILNER will check in with [facility]. Kathryn Corral MICROBIOLOGICAL LABORATORY TECHNICIAN JAE
[2021-05-11] MEDS: Pantoprazole Sodium 40 MG Tablet PO (08:59)
[2021-05-11] MEDS: Venlafaxine XR 75 MG Capsule PO (08:59)
[2021-05-11] MEDS: levETIRAcetam 500 MG Tablet PO (08:59)
[2021-05-11] MEDS: Magnesium Chloride 64 MG Delay Rel.Tablet 128 MG PO (08:59)
[2021-05-11] MEDS: Rivaroxaban 20 MG Tablet PO (08:59)
[2021-05-11] MEDS: Spironolactone 50 MG Tablet PO (08:59)
[2021-05-11] MEDS: Metoprolol(XL)Succ 25 MG Tablet PO (09:00)
[2021-05-11] MEDS: clonazePAM 0.5 MG Tablet 0.75 MG PO (09:09)
--- NOTE | 2021-05-11 09:41 | CASEMGMT ---
WILNER received a call from Shila at [facility] and they are not able to accept patient. WILNER called Nadia with [facility] and let her know patient will be coming to [place] today. WILNER will notify patient and her sister in law. Plan: d/c to [place] under intermediate level of care. Kathryn Corral SPEECH LANGUAGE PATHOLOGY ASSISTANT JAE
[2021-05-11] MEDS: oxyCODONE 5 MG Tablet 10 MG PO (10:20)
--- NOTE | 2021-05-11 10:53 | CASEMGMT ---
WILNER called patient's sister in law Deanne and let her know that patient will be going to [place]. WILNER let her know [facility] is not taking patients right now as they had a COVID outbreak. She was in agreement with this plan. She is at a doctor's appt and will come to hospital afterwards to talk with patient. WILNER also let patient know she will be going to [place]. Kathryn Corral BRAND COMMUNICATIONS MANAGER JAE
--- NOTE | 2021-05-11 11:15 | DS.PCM_ITS ---
Providers Date of Admission: 05/08/21 Primary Care Physician: Dr. Alvarez Montanez MD Reason For Visit: RIB FRACTURE,T-5 T-6 COMPRESSION FRACTURE, FALL Diagnosis Discharge Diagnosis (1) Right rib fracture: Status: Acute Code(s): S22.31XA - Fracture of one rib, right side, initial encounter for closed fracture (2) Fall: Status: Acute Code(s): W19.XXXA - Unspecified fall, initial encounter (3) Compression fracture of T6 vertebra: Status: Acute Code(s): S22.050A - Wedge compression fracture of T5-T6 vertebra, initial encounter for closed fracture Qualifiers: Encounter type: initial encounter Qualified Code(s): S22.050A - Wedge compression fracture of T5-T6 vertebra, initial encounter for closed fracture (4) Compression fracture of T5 vertebra: Status: Acute Code(s): S22.050A - Wedge compression fracture of T5-T6 vertebra, initial encounter for closed fracture Qualifiers: Encounter type: initial encounter Qualified Code(s): S22.050A - Wedge compression fracture of T5-T6 vertebra, initial encounter for closed fracture (5) Chronic anemia: Status: Chronic Code(s): D64.9 - Anemia, unspecified Medications at Discharge Home Medications levetiracetam 500 mg PO BID 11/29/15 albuterol sulfate 90 mcg/actuation aerosol inhaler 2 puff INHALATION Q4H PRN g 08/01/17 omeprazole 40 mg capsule,delayed release 40 mg PO DAILY 08/01/17 rivaroxaban 20 mg tablet 20 mg PO DAILY #90 tab 03/26/19 atorvastatin 80 mg tablet 80 mg PO DAILY 03/02/21 venlafaxine 75 mg capsule,extended release 24 hr 75 mg PO DAILY 03/02/21 Dulera 2 puff INHALATION Q12H PRN 03/15/21 acetaminophen 650 mg PO Q4H PRN 04/24/21 venlafaxine 37.5 mg PO DAILY 04/25/21 clonazepam 1 mg PO BID 05/09/21 acetaminophen 1,000 mg PO Q8 #0 tab 05/11/21 bisacodyl 10 mg OK DAILY PRN #0 ea 05/11/21 food supplemt, lactose-reduced [Ensure Compact] 118 ml PO 4X/DAY #0 ml 05/11/21 furosemide [Lasix] 20 mg PO DAILY #30 tab 05/11/21 losartan 25 mg PO DAILY #30 tab 05/11/21 metoprolol succinate 25 mg PO DAILY #0 tab 05/11/21 oxycodone 10 mg PO Q4H PRN PRN 1 Days #10 tab 05/11/21 Hospital Course Operations None Procedures - (MRI thoracic spine) Summary of Care Provided Minutes Spent on Discharge: 42 Hospital Course: Mrs. Perrin is a 55-year-old white female who presented to the emergency department at [facility] on 05/08/2021 after suffering from recurrent falls at home. The patient has had multiple admissions recently and had been discharged to [facility] for continued rehab. Evidently, she returns to the hospital with a nosebleed and refused to go back to [facility] went home with her brother and [id number]. The week prior to admission she had fallen approximately 3 times and was complaining of rib and back pain. Upon arrival to the emergency department she felt like she was significantly weak and that her legs give out on her when she was trying to stand. She had a recent CPA arrest with an unidentified cause and a negative cardiac catheterization in recent weeks and have been sent to the nursing facility for continued rehab as she was felt unsafe to go home. In the emergency department a CT of the chest abdomen and pelvis was performed and she was found to have a subacute nondisplaced fracture of the anterior lateral aspect of the right third and fifth ribs and neck compression deformity of the superior endplate of T5 and T6 was noted on the CT and was described of uncertain age. No other acute findings were found in the abdomen and pelvis. She was admitted to medical floor for further evaluation of her T5 and 6 endplate fractures and for placement for continued rehab to a different [facility]. An MRI was performed and showed no evidence of acute thoracic spine fracture and a normal thoracic cord. A T4 vertebral hemangioma was noted. Overall her laboratory data remained stable throughout her hospitalization from previous hospitalizations and she was evaluated by therapy with the recommendation for continued skilled therapy at a long term facility. She was also treated with pain medication for her rib pain. We encouraged good pulmonary toilet to prevent pneumonia. Her blood pressures were also noted to be soft during her hospitalization. At home she is on Aldactone 50 mg daily, metoprolol 100 mg daily, and losartan 100 mg daily. On discharge her Aldactone was discontinued, her metoprolol was decreased to 25 mg daily, and her losartan was reinitiated at 25 mg daily. I recommend watching her blood pressures closely as orthostatic hypotension from overmedication with antihypertensives may be contributing to her falls at home. If needed her home medications can be uptitrated. Her EF had improved and normalized on her most recent echo. She was discharged to [facility] in stable condition on 05/11/2021. She is to follow-up with her primary care physician in [address] Lui for her newly diagnosed breast cancer as previously scheduled. Discharge diagnoses: Debility Frequent falls Ribs 3 through 5 fractures on the right Hypotension-resolved Chronic anemia History of PE/DVT Papillary ductal carcinoma in situ-newly diagnosed COPD Restrictive lung disease STEPHANIE HFpEF-compensated MO Recent CPA-cause unidentified Physical Exam Const alert and oriented x3 Constitutional Narrative: Morbidly obese white female lying in bed, still appears to be uncomfortable, nontoxic General Appearance: cooperative, well kempt and well developed Exam Limitations: no limitations Nutritional Appearance: morbidly obese HEENT normocephalic, head/scalp atraumatic, hearing grossly normal bilaterally and moist oral mucous membranes Eyes PERRL, EOMs intact bilaterally, conjunctivae normal and no scleral icterus Neck full ROM, no lymphadenopathy, supple and no JVD Neck Narrative: Trachea midline General: trachea midline Resp normal respiratory effort, normal air movement, no retractions, no use of accessory muscles and clear to auscultation bilaterally Resp Narrative: Some splinting with deep breathing on right side due to rib fractures, tenderness right chest wall Auscultation: diminished lung sounds; Negative for crackles, rales, rhonchi or wheezes Cardio regular rate, regular rhythm, S1 normal heart sound, S2 normal heart sound, no murmurs, no rub, no gallops, no clicks, no JVD and peripheral pulses 2+ throughout Rate: bradycardia GI normal to inspection, nondistended, normoactive bowel sounds, soft to palpation, non-tender and non-distended; Negative for hepatosplenomegaly Extremity normal to inspection, normal capillary refill and no clubbing, cyanosis or edema General Extremity: no tenderness to palpation of joints or extremities Skin no rashes or lesions noted, no wounds, skin turgor normal and no jaundice General Skin Exam: no breakdown and turgor normal Lesions: no lesions Rashes: no rashes Neuro oriented x3, CN's II-XII intact bilaterally, moves all extremities and no focal motor deficits Neuro Narrative: Significant generalized weakness Sensorium / Orientation: awake and alert Speech: speech normal Motor Exam: Negative for general weakness Psych thought process normal and cooperative Psych Narrative: Flat affect Appearance: appropriate Mood & Affect: depressed Medical Records Data Medical Nutrition Assessment Dietitian: Malnutrition Criteria Met Start: 05/09/21 10:24 Freq: Status: Active Protocol: Document 05/09/21 10:25 [facility] (Rec: 05/09/21 10:27 [facility] [id number]) Nutrition Malnutrition Evidence of Malnutrition Exists Yes Malnutrition (severe): Acute Illness/Injury Evidenced By Suboptimal Energy Intake ( Severe),Weight Loss (Severe) Clinical Problem Acute Disease or Injury Related Malnutrition Etiology related to of spouse and recent health issues making pt unable to consume adequate nutrition to meet pt estimated nutritional needs Signs/Symptoms as evidenced by decreased po intake and wt loss of 5.3% x < 1 month Status Active Problem Altered Nutrient-Related Laboratory Values Etiology related to steroid administration Signs/Symptoms as evidenced by gluc 152 Status Active Problem Recommendation Dietitian Recommendations/Changes Will continue Cardiac diet Will provide 120 ml ensure compact w/ medpass 4x/day d/t signs/symptoms of malnutrition Monitor need for consistent carbohydrates of gluc worsens Weight / BMI Weight Weight: 126.7 kg Body Mass Index (BMI) 43.4 ABG / Lab / Microbiology Data Result Diagrams: 05/11/21 06:10 05/11/21 06:10 Laboratory: Laboratory Results - last 24 hr 05/11/21 06:10: WBC 6.9, RBC 3.02 L, Hgb 9.1 L, Hct 29.5 L, MCV 97.7, MCH 30.1, MCHC 30.8 L, RDW Std Deviation 48.6 H, RDW Coeff of Immanuel 13.5, Plt Count 195, MPV 11.1, Immature Gran % (Auto) 0.400, Neut % (Auto) 56.2, Lymph % (Auto) 36.0, Harnett % (Auto) 6.9, Eos % (Auto) 0.4, Baso % (Auto) 0.1, Absolute Neuts (auto) 3.9, Absolute Lymphs (auto) 2.47, Nucleated RBC % 0 05/11/21 06:10: Sodium 139, Potassium 3.8, Chloride 102, Carbon Dioxide 30.0, Anion Gap 7, BUN 19 H, Creatinine 0.61, Estim Creat Clear Calc 97.55, Est GFR (MDRD) Af Amer 130, Est GFR (MDRD) Non-Af 107, BUN/Creatinine Ratio 31.0 H, Glucose 92, Calcium 9.1 Microbiology: Microbiology 05/08/21 17:05 Nasal Secretion SARS-CoV-2 Antigen (Rapid) - Final D/C Instructions Discharge Diet: Low fat / Low cholesterol Discharge Activity: No Restrictions Weight Bearing Status: Weight bearing as tolerated Meaningful Use Info Meaningful Use Diagnoses (Choose all that apply): None applicable Discharge Plan Admission Admit Date/Time: 05/08/21 16:55 Primary Reason for Your Visit: Fall with rib fractures Attending Provider: Anne Barker Primary Care Provider: Alvarez Montanez Instructions Additional Instructions / Restrictions: Patient Problems: Altered Health Status related to Hospitalization Patient Goals: *Optimal Level of Health *Keep Appointments *Medication Compliance *Remain Safe Discharge Orders/Prescriptions Prescriptions: New oxycodone 5 mg Tablet 10 mg PO Q4H PRN PRN (Reason: pain (scale score 7-10)) 1 Days Qty: 10 RF: 0 acetaminophen 500 mg Tablet 1,000 mg PO Q8 Qty: 0 RF: 0 bisacodyl 10 mg Suppository 10 mg OK DAILY PRN (Reason: Constipation) Qty: 0 RF: 0 metoprolol succinate 25 mg Tablet Extended Release 24 Hr 25 mg PO DAILY Qty: 0 RF: 0 Ensure Compact Liquid 118 ml PO 4X/DAY Qty: 0 RF: 0 losartan 25 mg tablet 25 mg PO DAILY Qty: 30 RF: 0 furosemide [Lasix] 20 mg tablet 20 mg PO DAILY Qty: 30 RF: 0 Continued omeprazole 40 mg capsule,delayed release(DR/EC) 40 mg PO DAILY RF: 0 albuterol sulfate [ProAir HFA] 90 mcg/actuation HFA aerosol inhaler 2 puff INHALATION Q4H PRN (Reason: shortness of breath or wheezing) RF: 0 atorvastatin 80 mg tablet 80 mg PO DAILY RF: 0 venlafaxine 75 mg capsule,extended release 24hr 75 mg PO DAILY RF: 0 levetiracetam 500 MG tablet 500 mg PO BID RF: 0 Dulera 100-5 mcg/actuation Hfa Aerosol Inhaler 2 puff INHALATION Q12H PRN (Reason: sob) RF: 0 acetaminophen 325 mg Tablet 650 mg PO Q4H PRN (Reason: pain/fever) RF: 0 venlafaxine 37.5 mg capsule,extended release 24hr 37.5 mg PO DAILY RF: 0 clonazepam 1 mg tablet 1 mg PO BID RF: 0 rivaroxaban 20 mg tablet 20 mg PO DAILY Qty: 90 RF: 3 Discontinued metoprolol succinate 100 mg tablet extended release 24 hr 100 mg PO QHS Qty: 0 RF: 0 furosemide 20 mg tablet 40 mg PO DAILY Qty: 0 RF: 0 losartan 100 mg tablet 100 mg PO DAILY Qty: 0 RF: 0 Referrals / Follow Up: Yari Lui MD [STAFF PHYSICIAN] - See Referral Note (As scheduled for breast cancer follow up) Alvarez Montanez MD [Primary Care Provider] - Within 2 Weeks Disposition Disposition (needs filled in before D/C Order can be placed): Retirement Facility Charges/Coding Visit Charges Inpatient E&M: 18269 SNF Disch >30 Min
--- NOTE | 2021-05-11 11:26 | PHA.DC.MR ---
Pharmacy Service has performed discharge medication reconciliation for this patient. The patient's discharge medication list was reviewed for discrepancies and discrepancies were resolved. Home Medications levetiracetam 500 mg PO BID 11/29/15 albuterol sulfate 90 mcg/actuation aerosol inhaler 2 puff INHALATION Q4H PRN g 08/01/17 omeprazole 40 mg capsule,delayed release 40 mg PO DAILY 08/01/17 rivaroxaban 20 mg tablet 20 mg PO DAILY #90 tab 03/26/19 atorvastatin 80 mg tablet 80 mg PO DAILY 03/02/21 venlafaxine 75 mg capsule,extended release 24 hr 75 mg PO DAILY 03/02/21 Dulera 2 puff INHALATION Q12H PRN 03/15/21 acetaminophen 650 mg PO Q4H PRN 04/24/21 venlafaxine 37.5 mg PO DAILY 04/25/21 clonazepam 1 mg PO BID 05/09/21 acetaminophen 1,000 mg PO Q8 #0 tab 05/11/21 bisacodyl 10 mg WI DAILY PRN #0 ea 05/11/21 food supplemt, lactose-reduced [Ensure Compact] 118 ml PO 4X/DAY #0 ml 05/11/21 furosemide [Lasix] 20 mg PO DAILY #30 tab 05/11/21 losartan 25 mg PO DAILY #30 tab 05/11/21 metoprolol succinate 25 mg PO DAILY #0 tab 05/11/21 oxycodone 10 mg PO Q4H PRN PRN 1 Days #10 tab 05/11/21
--- NOTE | 2021-05-11 11:28 | TREXTCAR_ITS ---
Diet 05/08/21 17:54 Diet: Cardiac - Heart Healthy Food consistency:: Regular Liquid Consistency:: Regular/Thin Is pt able to select menu?: Yes Routine Orders/Code Status Suppository Frequency: Daily PRN O2 Frequency: PRN Keep PO Greater than or Equal to (%): 92 Routine Lab Work: CBC and BMP Code Status: Full Code Wound(s) Right lower back: Wound Type: Abrasion LEFT BREAST: Wound Type: Surgical Incision Suggestions for Active Care Change Position every (hours): 2 Hours to sit in a chair: 4 Times a day to sit in chair: 2 Therapies Weight Bearing: Full weight bearing Physical Therapy: Eval and Treat Occupational Therapy: Eval and Treat Problem/Diagnosis (1) Right rib fracture: Status: Acute (2) Fall: Status: Acute (3) Compression fracture of T6 vertebra: Status: Acute (4) Compression fracture of T5 vertebra: Status: Acute (5) Chronic anemia: Status: Chronic Allergies/Procedures Done in Hospital Allergies aspirin Allergy (Verified 04/24/21 16:22) Hives ibuprofen Allergy (Verified 04/24/21 16:22) Hives ketorolac tromethamine [From Toradol] Allergy (Verified 04/24/21 16:22) Angioedema meperidine HCl [From Demerol] Allergy (Verified 04/24/21 21:12) seizures nitroglycerin Allergy (Verified 04/24/21 16:22) Angioedema HEADACHE, TONGUE SWELLING. nut - unspecified Allergy (Verified 04/24/21 16:22) Hives Penicillins [PCN] Allergy (Verified 04/24/21 16:22) Hives tramadol HCl [From Ultram] Allergy (Verified 04/24/21 16:22) Angioedema BENTYL Allergy (Uncoded 04/24/21 16:22) Itching Procedures: None Type of Care/Length of Stay Estimated LOS: Convalescent Care Less Than 30 days Type of Care Needed: Intermediate Rehab Potential: Good Prognosis: Good Additional Orders/Day of Discharge Day of Discharge: 05/11/21 Dietary and Speech Recommendations Dietitian Recommendations/Changes: Will continue Cardiac diet Will provide 120 ml ensure compact w/ medpass 4x/day d/t signs/symptoms of malnutrition Monitor need for consistent carbohydrates of gluc worsens Discharge Plan Admission Admit Date/Time: 05/08/21 16:55 Primary Reason for Your Visit: Fall with rib fractures Attending Provider: Anne Barker Primary Care Provider: Alvarez Montanez Discharge Orders/Prescriptions Prescriptions: New oxycodone 5 mg Tablet 10 mg PO Q4H PRN PRN (Reason: pain (scale score 7-10)) 1 Days Qty: 10 RF: 0 acetaminophen 500 mg Tablet 1,000 mg PO Q8 Qty: 0 RF: 0 bisacodyl 10 mg Suppository 10 mg IA DAILY PRN (Reason: Constipation) Qty: 0 RF: 0 metoprolol succinate 25 mg Tablet Extended Release 24 Hr 25 mg PO DAILY Qty: 0 RF: 0 Ensure Compact Liquid 118 ml PO 4X/DAY Qty: 0 RF: 0 losartan 25 mg tablet 25 mg PO DAILY Qty: 30 RF: 0 furosemide [Lasix] 20 mg tablet 20 mg PO DAILY Qty: 30 RF: 0 Continued omeprazole 40 mg capsule,delayed release(DR/EC) 40 mg PO DAILY RF: 0 albuterol sulfate [ProAir HFA] 90 mcg/actuation HFA aerosol inhaler 2 puff INHALATION Q4H PRN (Reason: shortness of breath or wheezing) RF: 0 atorvastatin 80 mg tablet 80 mg PO DAILY RF: 0 venlafaxine 75 mg capsule,extended release 24hr 75 mg PO DAILY RF: 0 levetiracetam 500 MG tablet 500 mg PO BID RF: 0 Dulera 100-5 mcg/actuation Hfa Aerosol Inhaler 2 puff INHALATION Q12H PRN (Reason: sob) RF: 0 acetaminophen 325 mg Tablet 650 mg PO Q4H PRN (Reason: pain/fever) RF: 0 venlafaxine 37.5 mg capsule,extended release 24hr 37.5 mg PO DAILY RF: 0 clonazepam 1 mg tablet 1 mg PO BID RF: 0 rivaroxaban 20 mg tablet 20 mg PO DAILY Qty: 90 RF: 3 Discontinued metoprolol succinate 100 mg tablet extended release 24 hr 100 mg PO QHS Qty: 0 RF: 0 furosemide 20 mg tablet 40 mg PO DAILY Qty: 0 RF: 0 losartan 100 mg tablet 100 mg PO DAILY Qty: 0 RF: 0 Referrals / Follow Up: Yari Lui MD [STAFF PHYSICIAN] - See Referral Note (As scheduled for breast cancer follow up) Alvarez Montanez MD [Primary Care Provider] - Within 2 Weeks Disposition Disposition (needs filled in before D/C Order can be placed): Custodial Facility
--- NOTE | 2021-05-11 11:48 | CASEMGMT ---
WILNER faxed all necessary information to [facility] to obtain a level of care. Anticipate this will come back today and patient will be discharged to [place]. Await level of care. Kathryn ROWE
--- NOTE | 2021-05-11 13:17 | CASEMGMT ---
Received level of care from [facility]. WILNER faxed orders and level of care to Nadia with [facility]. SW completed convalescent on HENS. WILNER arranged for patient to get picked up at 1500 via [employer] van. SW notified patient, clerical secretary, and left a message with patient's sister in law Deanne. WILNER also notified RN and Nadia with [facility]. Plan: d/c to [place] under intermediate level of care on a convalescent stay. [facility] transported via [employer]. Kathryn ROWE
--- NOTE | 2021-05-11 13:28 | NURSING ---
This RN called and gave report to Jose L at [facility].
[2021-05-11] MEDS: Acetaminophen 500 MG Tablet 1000 MG PO (13:32)
== END 2021-05-11 14:55 | disposition intermediate care facility (04) | DRG 861 ==
LOC: ED 15:37 → MS3 16:55 → ED 17:26 → MS3 17:30 → PCU 05-09 06:58
PROVIDERS: Nurse Practitioner Family; Admitting Provider Internal Medicine; Emergency Provider Emergency Medicine; PCP Internal Medicine; Visit Provider Internal Medicine
DX: S22.41XA Multiple fractures of ribs, right side, initial encounter for closed fracture (principal); S22.050A Wedge compression fracture of T5-T6 vertebra, initial encounter for closed fracture; J44.9 Chronic obstructive pulmonary disease, unspecified; I11.0 Hypertensive heart disease with heart failure; I50.32 Chronic diastolic (congestive) heart failure; J96.10 Chronic respiratory failure, unspecified whether with hypoxia or hypercapnia; E66.01 Morbid (severe) obesity due to excess calories; Z68.44 Body mass index [BMI] 60.0-69.9, adult; W01.0XXA Fall on same level from slipping, tripping and stumbling without subsequent striking against object, initial encounter; Y92.009 Unspecified place in unspecified non-institutional (private) residence as the place of occurrence of the external cause; R29.6 Repeated falls; Z86.711 Personal history of pulmonary embolism; Z99.81 Dependence on supplemental oxygen; Z86.74 Personal history of sudden cardiac arrest; D05.10 Intraductal carcinoma in situ of unspecified breast; I25.10 Atherosclerotic heart disease of native coronary artery without angina pectoris; Z86.718 Personal history of other venous thrombosis and embolism; E78.5 Hyperlipidemia, unspecified; K21.9 Gastro-esophageal reflux disease without esophagitis; E03.9 Hypothyroidism, unspecified; G47.33 Obstructive sleep apnea (adult) (pediatric); Z79.899 Other long term (current) drug therapy; Z79.890 Hormone replacement therapy; Z87.891 Personal history of nicotine dependence; I95.9 Hypotension, unspecified; R53.81 Other malaise; D64.9 Anemia, unspecified
CPT/HCPCS: 36415; 71260; 72146; 74177; 80048; 80053; 85025; 87426; 93005; 96361; 96374; 96375; 96376; 97162; 97166; 97530; 99221; 99251; 99285; Q9967; A4216; G0378; G0463

== ENCOUNTER 2021-07-22 10:39 | Emergency (ER) | payer MEDICAID, SELFPAY ==
[2021-07-22 10:40] VITALS: BP 134/97; PULSE 102; RESP 16; TEMP 36.9; O2SAT 99; BMI 33.3
--- NOTE | 2021-07-22 11:10 | RAD_ITS ---
History: Trauma Right humerus single view: Findings: No fracture or subluxation. Joint spaces and soft tissues are normal. IMPRESSION: No acute abnormality. at 1138 Reported and signed by: Faisal Cruz MD Electronically Signed: Faisal Cruz MD at 11:37 EST Tel , Service support , RAD/Humerus min 2 Views
--- NOTE | 2021-07-22 11:23 | RAD_ITS ---
STUDY: X-RAY - RIGHT ELBOW REASON FOR EXAM: Female, 55 years old. Injury TECHNIQUE: Injury view(s) of the elbow. COMPARISON: None. FINDINGS: Normal visualized humerus, radius and ulna. Normal radiocapitellar and ulnotrochlear articulations. The soft tissue structures are unremarkable. RAD/Elbow min 3 Views IMPRESSION: Normal x-ray examination of the elbow. Electronically Signed: Jimmy Owens, at 12:29 EST Tel , Service support ,
--- NOTE | 2021-07-22 11:23 | RAD_ITS ---
History: trauma: Right wrist 3 views: Findings: No fracture or subluxation. Joint spaces and soft tissues appear normal. IMPRESSION: Intact right wrist. at 1254 Reported and signed by: Faisal Cruz MD Electronically Signed: Faisal Cruz MD at 12:52 EST Tel , Service support , RAD/Wrist min 3 Views
--- NOTE | 2021-07-22 11:23 | EX.ED.UPPERE ---
HPI History of Present Illness Chief Complaint: Upper Extremity Injury Detail of Chief Complaint: Injury to right arm after a fall 3 days ago Informant: patient Narrative Narrative: Patient presents to the emergency department stating that she fell 3 days ago while getting out of the bathtub. Patient states she felt lightheaded and dizzy and think she may have passed out and injured her right arm. She was able to and then get herself up. Patient does not think she hit her head as she is not having head or neck pain. She complains of a lot of popping in the right shoulder with movement. She is right-hand dominant. Patient is on Xarelto and on home oxygen. She has history of PE and prior heart attack. Patient denies any other injuries. [facility] Medical History (Updated 07/22/21 @ 13:[address] Geovani Hilliard, ) Abnormal cardiac enzyme level Acute and chronic respiratory failure Acute respiratory failure with hypoxia and hypercapnia LEIGH ANN (acute kidney injury) Anemia Anemia Anxiety and depression Back pain Bilateral peripheral pulmonary emboli BiPAP (biphasic positive airway pressure) dependence Breast infection Cancer Cardiology follow-up encounter Cardiopulmonary arrest with successful resuscitation Chest pain Chronic anemia Chronic narcotic dependence Compression fracture of T5 vertebra Compression fracture of T6 vertebra Congestive heart failure COPD (chronic obstructive pulmonary disease) COPD exacerbation Coronary artery disease CPAP (continuous positive airway pressure) dependence Debility Dependence on continuous supplemental oxygen Depression Diastolic dysfunction DVT (deep vein thrombosis) in DVT (deep venous thrombosis) Essential hypertension Fall Former smoker GERD (gastroesophageal reflux disease) HLD (hyperlipidemia) Hx of cardiovascular stress test Hx of echocardiogram Hypertension Hypothyroidism Morbid obesity MSSA (methicillin susceptible Staphylococcus aureus) pneumonia Myocardial infarct Obesity On home oxygen therapy STEPHANIE (obstructive sleep apnea) Pulmonary embolism Restrictive lung disease Right rib fracture Seizure disorder Seizures Sleep apnea SOB (shortness of breath) Syncope and collapse TIA (transient ischemic attack) TIA (transient ischemic attack) Wears dentures Wears glasses Home Medications albuterol sulfate 90 mcg/actuation aerosol inhaler 2 puff INHALATION Q4H PRN g 08/01/17 [History Last Taken 03/03/18] omeprazole 40 mg capsule,delayed release 40 mg PO DAILY 08/01/17 [History Last Taken 04/05/21] rivaroxaban 20 mg tablet 20 mg PO DAILY #90 tab 03/26/19 [Rx Last Taken 04/01/21] atorvastatin 80 mg tablet 80 mg PO DAILY 03/02/21 [History Last Taken Unknown] venlafaxine 75 mg capsule,extended release 24 hr 75 mg PO DAILY 03/02/21 [History Last Taken 03/22/21 07:30] Dulera 2 puff INHALATION Q12H PRN 03/15/21 [History Last Taken Unknown] acetaminophen 650 mg PO Q4H PRN 04/24/21 [History Last Taken Unknown] venlafaxine 37.5 mg PO DAILY 04/25/21 [History Last Taken Unknown] clonazepam 1 mg PO BID 05/09/21 [History Last Taken Unknown] acetaminophen 1,000 mg PO Q8 #0 tab 05/11/21 [Rx Last Taken Unknown] furosemide [Lasix] 20 mg PO DAILY #30 tab 05/11/21 [Rx Last Taken Unknown] losartan 25 mg PO DAILY #30 tab 05/11/21 [Rx Last Taken Unknown] oxycodone 10 mg PO Q4H PRN PRN 1 Days #10 tab 05/11/21 [Rx Last Taken Unknown] food supplemt, lactose-reduced 118 ml PO DAILY ml 05/24/21 [History Last Taken Unknown] metoprolol succinate 100 mg tablet,extended release 24 hr 100 mg PO DAILY tab 05/24/21 [History Last Taken Unknown] divalproex 250 mg tablet,extended release 24 hr 250 mg PO BID #60 tab 05/30/21 [Rx Last Taken Unknown] levetiracetam 500 mg tablet 500 mg PO BID #60 tab 05/30/21 [Rx Last Taken Unknown] oxycodone-acetaminophen 1 tab PO Q6H PRN PRN 3 Days #12 tablet 07/22/21 [Rx Last Taken Unknown] Allergy/AdvReac Type Severity Reaction Status Date / Time aspirin Allergy Hives Verified 07/22/21 10:43 ibuprofen Allergy Hives Verified 07/22/21 10:43 ketorolac tromethamine Allergy Angioedema Verified 07/22/21 10:43 [From Toradol] meperidine HCl [From Demerol] Allergy seizures Verified 07/22/21 10:43 nitroglycerin Allergy Angioedema Verified 07/22/21 10:43 nut - unspecified Allergy Hives Verified 07/22/21 10:43 Penicillins [PCN] Allergy Hives Verified 07/22/21 10:43 tramadol HCl [From Ultram] Allergy Angioedema Verified 07/22/21 10:43 BENTYL Allergy Itching Uncoded 07/22/21 10:43 Family History (Updated 05/24/21 @ 09:01 by Mariola Sorenson) Brother Myocardial infarction Asthma Mental disorder Psychiatric care Suicide attempt Father Colon cancer Brother Mental disorder Aunt Parkinson disease Sister Breast cancer Cervical cancer Ovarian cancer Sister Cervical cancer Ovarian cancer Mother Cancer History of blood clots Hypertension Surgical History History of appendectomy History of cholecystectomy History of cholecystectomy History of hysterectomy History of left breast biopsy History of left heart catheterization (LHC) (~04/22/21) Hx of appendectomy S/P lumpectomy, left breast Social History household members: none Smoking Status: Former smoker quit date: 01/21/16 pack-years: 32 second hand exposure: Yes alcohol intake: never substance use type: does not use ROS ROS ED Constitutional Constitutional ED: Reports systems reviewed and no addt'l complaints, except as documented; Denies body ache(s), change in weight or chills Eyes Eyes: Denies acute decrease in peripheral vision, change in vision, double vision or loss of vision ENT ENT ED: Reports none; Denies ear pain, lip swelling, loss taste/smell, neck pain, otalgia or sore throat Cardiovascular Cardiovascular: Reports none; Denies abdominal pain, chest pain with activity, leg edema, lightheadedness, palpitations, rapid heart rate or syncope Respiratory/Chest Respiratory/Chest: Reports none; Denies change in mental status, dry cough, dyspnea, hemoptysis, shortness of breath at rest or shortness of breath with exertion Gastrointestinal Gastrointestinal: Reports none; Denies abdominal pain, change in stool character, diarrhea, hematemesis, hematochezia, melena, rectal bleeding or vomiting Genitourinary Genitourinary ED: Reports none; Denies abdominal discomfort, anuria, dysuria, genital pain or polyuria Musculoskeletal Musculoskeletal: Reports none and other Details: Right arm pain ; Denies arthralgias, back pain, difficulty walking, extremity pain, muscle weakness or myalgias Integumentary Reports none; Denies abscess or rash Neurologic Neurologic: Reports none; Denies abnormal gait, confusion, focal weakness, frequent falls, headache(s), loss of vision, numbness, paresthesias, radicular pain, vertigo or weakness Psychiatric Psychiatric: Reports systems reviewed and no addt'l complaints, except as documented and none; Denies behavioral changes, confusion, difficulty concentrating, hallucinations, suicidal ideation, tactile hallucinations or visual hallucinations Endocrine Endocrinology: Denies none, cold intolerance, excessive sweating, fatigue or heat intolerance Hematologic/Lymphatic Hematologic/Lymphatic: Reports none; Denies anemia, easy bleeding or easy bruising Allergic/Immunologic Allergic/Immunologic ED: Denies as per HPI, none, lip swelling, mouth swelling, throat swelling, tongue swelling or hives EXAM Physical Exam Const Vital Signs: 07/22/21 10:40 Temperature 98.4 F Temperature Source Temporal Pulse Rate 102 H Respiratory Rate 16 Blood Pressure 134/97 H Blood Pressure Mean 109 Pulse Ox 99 Oxygen Delivery Method Nasal Cannula Oxygen Flow Rate (L/min) 3 Positive well nourished and well developed General Appearance ED: well developed and NAD HEENT Reports TM's clear and moist mucous membranes normocephalic and atraumatic; Negative for trauma or tenderness Tympanic Membrane ED: Yes TM's clear Eyes PERRL and EOMs intact bilaterally General Eye ED: Negative for pale conjunctiva or scleral icterus Neck no lymphadenopathy, supple and no JVD General: Negative for tenderness Chest Wall inspection of chest normal and palpation of chest normal Chest: Negative for tenderness Resp normal respiratory effort and clear to auscultation bilaterally Effort and Inspection: Negative for respiratory distress or pain with movement Auscultation: Negative for rhonchi, wheezes or diminished lung sounds Cardio regular rate, regular rhythm, S1 normal heart sound, S2 normal heart sound and no murmurs Peripheral Pulses: pulses 2+ throughout GI normal to inspection, nondistended, normoactive bowel sounds, soft to palpation, non-tender, non-distended and no masses Back/Spine no CVA tenderness and no thoracic nor lumbar tenderness Extremity normal to inspection General Extremety ED: Negative for edema General Extremity: Negative for edema Neuro oriented x3, CN's II-XII intact bilaterally, no sensory deficits noted and gait normal Sensorium / Orientation: awake, alert, oriented to person, oriented to place and oriented to time Motor Exam: strength 5/5 throughout and strength abnormal Psych mental status grossly normal Skin no rashes or lesions noted and no wounds MDM MDM MDM Narrative Medical decision making narrative: Patient had x-rays of the right humerus as well as right elbow and right wrist without any evidence of fracture. Patient will be given a sling. She is given a prescription for oxycodone for pain. She will be referred to orthopedics for follow-up as I cannot rule out ligamentous injury to her shoulder including possibly rotator cuff injury. She may need further imaging such as possibly MRI. Radiography Diagnostic Testin view x-rays of right humerus obtained as well as 3 views of right elbow and right wrist and all were read by myself as no acute fractures or dislocations. Radiology was in agreement. Discharge Plan Triage Chief Complaint: Upper Extremity Injury ED Provider: Geovani Hilliard Dx/Rx/DC Orders Clinical Impression: Other sprain of right shoulder joint, initial encounter, Right wrist sprain Instructions: ED Shoulder Sprain Prescriptions: New oxycodone-acetaminophen [oxycodone-acetaminophen] 1 TABLET tablet 1 tab PO Q6H PRN PRN (Reason: Pain) 3 Days Qty: 12 RF: 0 No Action omeprazole 40 mg capsule,delayed release(DR/EC) 40 mg PO DAILY RF: 0 albuterol sulfate [ProAir HFA] 90 mcg/actuation HFA aerosol inhaler 2 puff INHALATION Q4H PRN (Reason: shortness of breath or wheezing) RF: 0 atorvastatin 80 mg tablet 80 mg PO DAILY RF: 0 venlafaxine 75 mg capsule,extended release 24hr 75 mg PO DAILY RF: 0 Ensure Compact Liquid 118 ml PO DAILY RF: 0 metoprolol succinate 100 mg tablet extended release 24 hr 100 mg PO DAILY RF: 0 Dulera 100-5 mcg/actuation Hfa Aerosol Inhaler 2 puff INHALATION Q12H PRN (Reason: sob) RF: 0 acetaminophen 325 mg Tablet 650 mg PO Q4H PRN (Reason: pain/fever) RF: 0 venlafaxine 37.5 mg capsule,extended release 24hr 37.5 mg PO DAILY RF: 0 clonazepam 1 mg tablet 1 mg PO BID RF: 0 oxycodone 5 mg Tablet 10 mg PO Q4H PRN PRN (Reason: pain (scale score 7-10)) 1 Days Qty: 10 RF: 0 acetaminophen 500 mg Tablet 1,000 mg PO Q8 Qty: 0 RF: 0 losartan 25 mg tablet 25 mg PO DAILY Qty: 30 RF: 0 furosemide [Lasix] 20 mg tablet 20 mg PO DAILY Qty: 30 RF: 0 rivaroxaban 20 mg tablet 20 mg PO DAILY Qty: 90 RF: 3 divalproex 250 mg tablet extended release 24 hr 250 mg PO BID Qty: 60 RF: 2 levetiracetam 500 mg tablet 500 mg PO BID Qty: 60 RF: 2 Primary Care Provider: Alvarez Montanez Referrals: Chan Vivar DO [STAFF PHYSICIAN] - 3-5 Days Alvarez Montanez MD [Primary Care Provider] - Disposition Disposition: Home, Self Care
[2021-07-22] MEDS: oxyCODONE 5 MG Tablet PO (13:35)
== END 2021-07-22 13:39 | disposition home or self-care (01) ==
PROVIDERS: Emergency Provider Emergency Medicine; PCP Internal Medicine
DX: S43.401A Unspecified sprain of right shoulder joint, initial encounter (principal); S63.501A Unspecified sprain of right wrist, initial encounter; I25.2 Old myocardial infarction; I25.10 Atherosclerotic heart disease of native coronary artery without angina pectoris; G47.33 Obstructive sleep apnea (adult) (pediatric); E78.5 Hyperlipidemia, unspecified; I50.9 Heart failure, unspecified; J44.9 Chronic obstructive pulmonary disease, unspecified; W19.XXXA Unspecified fall, initial encounter; Z99.81 Dependence on supplemental oxygen; Z87.891 Personal history of nicotine dependence; Z86.711 Personal history of pulmonary embolism; Z79.01 Long term (current) use of anticoagulants; Z79.899 Other long term (current) drug therapy
CPT/HCPCS: 73060; 73080; 73110; 99284

== ENCOUNTER 2021-08-18 10:54 | Emergency (ER) | payer MEDICAID, SELFPAY ==
[2021-08-18 10:55] VITALS: BP 136/79; PULSE 74; RESP 24; TEMP 36.7; O2SAT 98; BMI 42.4
--- NOTE | 2021-08-18 11:22 | EDS_ITS ---
HPI History of Present Illness Chief Complaint: Fall Informant: patient Onset/Context/Timing Onset: Today Narrative Narrative: Brought in by EMS from home mechanical fall prior to arrival. Patient uses wheelchair for assistance ambulatory with her previous recent cardiopulmonary arrest in March 2020. She was getting out of the wheelchair to turn up the heat when she is turning fell hitting the nightstand with pain in her right shoulder and right ribs. She is on Xarelto for history of PE. Unknown etiology on her cardiopulmonary arrest from March she had a heart cath that was nonobstructive. She is actually seen by myself in April for a fall with right rib fractures 3 through 5 with age-indeterminate T5-T6 compression fractures. She was hospitalized she went to rehab for 2 to 3 months. Currently has home health with therapy, son lives with her. She wears chronic 3 L of oxygen. No pain in the hips or lower extremities. From records were seen at the end of last month for a fall right upper extremity injury negative for fractures. She denies head injuries no neck pain. No loss of consciousness. Prior similar symptoms: Yes PFSH PFS Medical History (Updated 08/18/21 @ 13:[address] David Kim, DO) Abnormal cardiac enzyme level Acute and chronic respiratory failure Acute respiratory failure with hypoxia and hypercapnia LEIGH ANN (acute kidney injury) Anemia Anemia Anxiety and depression Back pain Bilateral peripheral pulmonary emboli BiPAP (biphasic positive airway pressure) dependence Breast infection Cancer Cardiac arrest Cardiology follow-up encounter Cardiopulmonary arrest with successful resuscitation Chest pain Chronic anemia Chronic narcotic dependence Compression fracture of T5 vertebra Compression fracture of T6 vertebra Congestive heart failure COPD (chronic obstructive pulmonary disease) COPD exacerbation Coronary artery disease CPAP (continuous positive airway pressure) dependence Debility Dependence on continuous supplemental oxygen Depression Diastolic dysfunction DVT (deep vein thrombosis) in DVT (deep venous thrombosis) Essential hypertension Fall Former smoker GERD (gastroesophageal reflux disease) HLD (hyperlipidemia) Hx of cardiovascular stress test Hx of echocardiogram Hypertension Hypothyroidism Morbid obesity MSSA (methicillin susceptible Staphylococcus aureus) pneumonia Myocardial infarct Obesity On home oxygen therapy STEPHANIE (obstructive sleep apnea) Pulmonary embolism Restrictive lung disease Right rib fracture Seizure disorder Seizures Sleep apnea SOB (shortness of breath) Syncope and collapse TIA (transient ischemic attack) TIA (transient ischemic attack) Wears dentures Wears glasses Home Medications albuterol sulfate 90 mcg/actuation aerosol inhaler 2 puff INHALATION Q4H PRN g 08/01/17 [History Last Taken 03/03/18] omeprazole 40 mg capsule,delayed release 40 mg PO DAILY 08/01/17 [History Last Taken 04/05/21] rivaroxaban 20 mg tablet 20 mg PO DAILY #90 tab 03/26/19 [Rx Last Taken 04/01/21] atorvastatin 80 mg tablet 80 mg PO DAILY 03/02/21 [History Last Taken Unknown] venlafaxine 75 mg capsule,extended release 24 hr 75 mg PO DAILY 03/02/21 [History Last Taken 03/22/21 07:30] Dulera 2 puff INHALATION Q12H PRN 03/15/21 [History Last Taken Unknown] acetaminophen 650 mg PO Q4H PRN 04/24/21 [History Last Taken Unknown] venlafaxine 37.5 mg PO DAILY 04/25/21 [History Last Taken Unknown] clonazepam 1 mg PO BID 05/09/21 [History Last Taken Unknown] acetaminophen 1,000 mg PO Q8 #0 tab 05/11/21 [Rx Last Taken Unknown] furosemide [Lasix] 20 mg PO DAILY #30 tab 05/11/21 [Rx Last Taken Unknown] losartan 25 mg PO DAILY #30 tab 05/11/21 [Rx Last Taken Unknown] oxycodone 10 mg PO Q4H PRN PRN 1 Days #10 tab 05/11/21 [Rx Last Taken Unknown] food supplemt, lactose-reduced 118 ml PO DAILY ml 05/24/21 [History Last Taken Unknown] metoprolol succinate 100 mg tablet,extended release 24 hr 100 mg PO DAILY tab 05/24/21 [History Last Taken Unknown] divalproex 250 mg tablet,extended release 24 hr 250 mg PO BID #60 tab 05/30/21 [Rx Last Taken Unknown] levetiracetam 500 mg tablet 500 mg PO BID #60 tab 05/30/21 [Rx Last Taken Unknown] oxycodone-acetaminophen 1 tab PO Q6H PRN PRN 3 Days #12 tablet 07/22/21 [Rx Last Taken Unknown] oxycodone-acetaminophen [Percocet] 1 tab PO Q6H PRN 3 Days #12 tab 08/18/21 [Rx Last Taken Unknown] Allergy/AdvReac Type Severity Reaction Status Date / Time aspirin Allergy Hives Verified 07/22/21 10:43 ibuprofen Allergy Hives Verified 07/22/21 10:43 ketorolac tromethamine Allergy Angioedema Verified 07/22/21 10:43 [From Toradol] meperidine HCl [From Demerol] Allergy seizures Verified 07/22/21 10:43 nitroglycerin Allergy Angioedema Verified 07/22/21 10:43 nut - unspecified Allergy Hives Verified 07/22/21 10:43 Penicillins [PCN] Allergy Hives Verified 07/22/21 10:43 tramadol HCl [From Ultram] Allergy Angioedema Verified 07/22/21 10:43 BENTYL Allergy Itching Uncoded 07/22/21 10:43 Family History Brother Myocardial infarction Asthma Mental disorder Psychiatric care Suicide attempt Father Colon cancer Brother Mental disorder Aunt Parkinson disease Sister Breast cancer Cervical cancer Ovarian cancer Sister Cervical cancer Ovarian cancer Mother Cancer History of blood clots Hypertension Surgical History History of appendectomy History of cholecystectomy History of cholecystectomy History of hysterectomy History of left breast biopsy History of left heart catheterization (LHC) (~04/22/21) Hx of appendectomy S/P lumpectomy, left breast Social History household members: none Smoking Status: Former smoker quit date: 01/21/16 pack-years: 32 second hand exposure: Yes alcohol intake: never substance use type: does not use ROS ROS ED Constitutional Constitutional ED: Denies chills, fever(s) or sweats Eyes Eyes: Denies change in vision ENT ENT ED: Denies dysphagia or sore throat Cardiovascular Cardiovascular: Denies chest pain, leg edema, palpitations or racing heartbeat Respiratory/Chest Respiratory/Chest: Reports other Details: Pain to right ribs ; Denies cough, dyspnea or dyspnea on exertion Gastrointestinal Gastrointestinal: Denies abdominal pain, diarrhea, nausea or vomiting Genitourinary Genitourinary ED: Denies dysuria, hematuria or urinary frequency Musculoskeletal Musculoskeletal: Reports other Details: Right shoulder pain ; Denies back pain, extremity pain or neck pain Integumentary Denies rash or wounds Neurologic Neurologic: Denies headache(s), paresthesias or weakness EXAM Physical Exam Const Vital Signs: 08/18/21 10:55 08/18/21 11:24 08/18/21 13:37 Temperature 98.1 F Temperature Source Oral Pulse Rate 74 66 Respiratory Rate 24 H 19 H Respiratory Effort Short of Breath Blood Pressure 136/79 H 118/85 H Blood Pressure Mean 98 96 Pulse Ox 98 97 96 Oxygen Delivery Method Nasal Cannula Nasal Cannula Nasal Cannula Oxygen Flow Rate (L/min) 3 3 3 Positive well nourished and well developed Constitutional Narrative: Stable on 3 L of oxygen, GCS 15. General Appearance ED: well developed HEENT Reports TM's clear and moist mucous membranes HEENT Narrative: No facial tenderness. No hemotympanum. normocephalic and atraumatic Tympanic Membrane ED: Yes TM's clear Eyes PERRL, EOMs intact bilaterally and conjunctivae normal General Eye ED: Yes normal appearance of both eyes Neck no lymphadenopathy and supple General: Negative for tenderness Chest Wall Chest Narrative: Tender palpation right lower ribs with no crepitus. No sternal tenderness. Chest: Negative for tenderness Resp normal respiratory effort and normal air movement Resp Narrative: Symmetric breath sounds bilaterally. Effort and Inspection: symmetric chest movement; Negative for respiratory distress Cardio regular rate, regular rhythm and no murmurs Peripheral Pulses: pulses 2+ throughout GI normal to inspection, nondistended, normoactive bowel sounds and non-tender Palpation: Negative for guarding or rebound tenderness present Back/Spine no CVA tenderness and no thoracic nor lumbar tenderness Back/Spine Narrative: Tender palpation right posterior lower ribs with no crepitus. Very small old healing bruise right posterior mid thoracic nontender. Extremity Extremity Narrative: Right upper extremity: Tender palpation mid clavicle without deformities. Tender palpation proximal shoulder. No deformities. Skin intact. Neuro vas intact distally. Left upper extremity: Full range of motion without tenderness. Neuro vas intact distally. Lower extremities: Negative logroll bilaterally. No deformities. Nontender. Pulses intact distally. General Extremety ED: Yes tenderness; Negative for edema General Extremity: Negative for edema Neuro oriented x3 and no sensory deficits noted Sensorium / Orientation: awake and alert Skin Skin Narrative: See above MDM MDM MDM Narrative Medical decision making narrative: Patient awake alert no loss of consciousness denies headache neck pain denies head trauma on Xarelto. Pain right side rib cage right shoulder. X-rays right shoulder including clavicle and humerus reviewed by myself and read by radiology negative for any acute process. Trauma scan chest abdomen pelvis and discussion with radiology no new findings. Patient with remote fractures of right ribs 3-6. Discussed there is calcification of ribs 6 which was not noted on her last CT. No intra-abdominal injuries. She is treated with fentanyl for pain. Last prescription for Percocet was the end of June when she was here for the shoulder injury. She is refill for this prescription. She has help at home with currently physical therapy and home health at least twice a week. Her son is at home. They are working for assisted living with the patient currently. She feels comfortable going home. A sling was provided for her right upper extremity she will remove multiple times a day with movement to avoid frozen shoulder. Patient is being discharged under pandemic conditions under declared global, national and state disaster activation, with limited medical resources. Patient and community understands this. Results discussed in layman's terms to the patient satisfaction. All questions answered in layman's terms. Patient understands importance of follow-up care as directed. Patient has been instructed to return to the ED immediately if new symptoms, problems, or questions occur. We mutually agree with the plan of disposition. The patient understand that they may call or return with any questions or concerns at any time. Lab Data Attestation: I reviewed the patient's lab results. Labs: Laboratory Results - last 24 hr 08/18/21 08/18/21 08/18/21 11:20 11:20 11:20 WBC 7.6 RBC 3.60 L Hgb 10.5 L Hct 34.4 L MCV 95.6 MCH 29.2 MCHC 30.5 L RDW Std Deviation 49.5 H RDW Coeff of Immanuel 14.2 Plt Count 305 MPV 10.8 Immature Gran % (Auto) 0.300 Neut % (Auto) 60.4 Lymph % (Auto) 29.1 [place] % (Auto) 6.5 Eos % (Auto) 2.9 Baso % (Auto) 0.8 Absolute Neuts (auto) 4.6 Absolute Lymphs (auto) 2.20 Nucleated RBC % 0 PT 22.5 H INR 2.1 APTT 48.1 H Sodium 140 Potassium 4.3 Chloride 103 Carbon Dioxide 31.0 Anion Gap 6 BUN 15 Creatinine 0.78 Estim Creat Clear Calc 76.29 Est GFR (MDRD) Af Amer 99 Est GFR (MDRD) Non-Af 82 BUN/Creatinine Ratio 19.3 Glucose 113 H Calcium 9.2 Radiography Diagnostic Testing: Clinical Impression(s) from Imaging Studies Chest/Abdomen/Pelvis CT 08/18/21 11:55 IMPRESSION: Right renal cyst. Prior cholecystectomy. No acute abnormality is seen. Electronically Signed: Jason Coleman MD at 12:33 EST , Humerus X-Ray 08/18/21 12:10 IMPRESSION: Normal x-ray examination of the humerus. Electronically Signed: Jason Coleman MD at 12:35 EST , Shoulder X-Ray 08/18/21 12:10 IMPRESSION: Degenerative change of the right acromial clavicular joint. Electronically Signed: Jason Coleman MD at 12:36 EST , Discharge Plan Triage Chief Complaint: Fall ED Provider: David Kim Dx/Rx/DC Orders Clinical Impression: Chest wall contusion, Contusion of right shoulder Instructions: ED Chest Wall Contusion, ED Shoulder Contusion Prescriptions: New oxycodone-acetaminophen [Percocet] 5-325 mg tablet 1 tab PO Q6H PRN (Reason: pain) 3 Days Qty: 12 RF: 0 No Action omeprazole 40 mg capsule,delayed release(DR/EC) 40 mg PO DAILY RF: 0 albuterol sulfate [ProAir HFA] 90 mcg/actuation HFA aerosol inhaler 2 puff INHALATION Q4H PRN (Reason: shortness of breath or wheezing) RF: 0 atorvastatin 80 mg tablet 80 mg PO DAILY RF: 0 venlafaxine 75 mg capsule,extended release 24hr 75 mg PO DAILY RF: 0 Ensure Compact Liquid 118 ml PO DAILY RF: 0 metoprolol succinate 100 mg tablet extended release 24 hr 100 mg PO DAILY RF: 0 Dulera 100-5 mcg/actuation Hfa Aerosol Inhaler 2 puff INHALATION Q12H PRN (Reason: sob) RF: 0 acetaminophen 325 mg Tablet 650 mg PO Q4H PRN (Reason: pain/fever) RF: 0 venlafaxine 37.5 mg capsule,extended release 24hr 37.5 mg PO DAILY RF: 0 clonazepam 1 mg tablet 1 mg PO BID RF: 0 oxycodone 5 mg Tablet 10 mg PO Q4H PRN PRN (Reason: pain (scale score 7-10)) 1 Days Qty: 10 RF: 0 acetaminophen 500 mg Tablet 1,000 mg PO Q8 Qty: 0 RF: 0 losartan 25 mg tablet 25 mg PO DAILY Qty: 30 RF: 0 furosemide [Lasix] 20 mg tablet 20 mg PO DAILY Qty: 30 RF: 0 oxycodone-acetaminophen [oxycodone-acetaminophen] 1 TABLET tablet 1 tab PO Q6H PRN PRN (Reason: Pain) 3 Days Qty: 12 RF: 0 rivaroxaban 20 mg tablet 20 mg PO DAILY Qty: 90 RF: 3 divalproex 250 mg tablet extended release 24 hr 250 mg PO BID Qty: 60 RF: 2 levetiracetam 500 mg tablet 500 mg PO BID Qty: 60 RF: 2 Primary Care Provider: Alvarez Montanez Referrals: Alvarez Montanez MD [Primary Care Provider] - 3-5 Days Activity Restrictions/Additional Instructions: Old healing rib fractures 3 through 6 on the right side on CAT scan from discussion with radiologist. Negative x-ray right shoulder and upper arm. Use sling for comfort. No intra-abdominal injury. Take pain medicines as prescribed. Follow-up with your doctor. Disposition Disposition: Home, Self Care Discharge Date/Time: 08/18/21 14:28
[2021-08-18 11:24] VITALS: O2SAT 97
[2021-08-18 11:39] LABS: Absolute Neutrophil Count 4.6 X10^3/uL (2.0-7.7); Basophil# 0.06 X10^3/uL; Basophil% 0.8 % (0-1); Eosinophil# 0.22 X10^3/uL; Eosinophils% 2.9 % (0-5); Hematocrit 34.4 % (37-47); Hemoglobin 10.5 g/dL (12.0-15.0); Lymphocyte % 29.1 % (19-41); Mean Corp Hgb Conc 30.5 g/dL (32-36); Mean Corpuscular Hgb 29.2 pg (27.0-32.0); Mean Corpuscular Volume 95.6 fL (81-99); Mean Platelet Vol. 10.8 fl (6.2-12.0); Monocyte# 0.49 X10^3/uL; Monocyte% 6.5 % (0-10); NRBC Flagged by Analyzer 0 % (0-5); Neutrophil # 4.58 X10^3/uL (2.7-7.7); Neutrophil % 60.4 % (47-70); Platelet Count 305 K/mm3 (150-450); RBC Distribution Width CV 14.2 % (11.6-14.6); RBC Distribution Width SD 49.5 fl (35.1-43.9); White Blood Count 7.6 K/mm3 (4.4-11.0)
[2021-08-18 11:44] LABS: International Normalized Ratio 2.1; Prothrombin Time (Protime)PT. 22.5 SECONDS (11.7-14.9)
[2021-08-18 11:45] LABS: Partial Thromboplast Time 48.1 Seconds (24.1-36.2)
[2021-08-18 11:48] LABS: Anion Gap 6 (5-15); BUN 15 mg/dL (7-18); BUN/Creat Ratio 19.3 RATIO (10-20); Calcium,Total 9.2 mg/dL (8.5-10.1); Chloride 103 mmol/L (98-107); Creatinine, Serum 0.78 mg/dL (0.55-1.02); EST Glomerular Filtration Rate 82 mL/min (>60); Est Glom Filt Rate - Afr Amer 99 mL/min (>60); Estimated Creatinine Clearance 76.29 ml/min; Glucose 113 mg/dL (74-106); Potassium 4.3 mmol/L (3.5-5.1); Sodium Level 140 mmol/L (136-145)
[2021-08-18] MEDS: fentaNYL 100 MCG/2 ML Ampul 50 MCG IV ×2 (11:48→13:05)
[2021-08-18] MEDS: 0.9% Normal Saline 1,000 ML 1000 ML IV (11:50)
--- NOTE | 2021-08-18 11:55 | CT_ITS ---
STUDY: CT CHEST, ABDOMEN T PELVIS WITH CONTRAST REASON FOR EXAM: Female, 55 years old. Trauma -- right ribs, flank injury RADIATION DOSAGE (If Supplied By Facility): CTDIvol = ( 25.23 ) mGy, DLP = ( 2320.56 ) mGycm TECHNIQUE: Transaxial imaging was performed following intravenous administration of IV 100mL Isovue-300. Individualized dose optimization techniques were used for this CT. COMPARISON: No relevant priors. FINDINGS: CHEST Mild degree of the atelectasis at the lung bases. There is no demonstrated pleural abnormality. Normal heart and pericardium. Normal mediastinum. Normal hilar regions. Normal unenhanced pulmonary arteries. Normal aorta arch and descending thoracic aorta. There are multi-level degenerative changes of the thoracic spine. ABDOMEN Normal liver. There are surgical clips in the gallbladder fossa consistent with a prior cholecystectomy. Normal spleen. Normal pancreas. Normal bilateral adrenal glands. 4.1 cm cyst in the upper pole of the left kidney. Normal left kidney. Normal visualized stomach. Normal small intestine. Normal colon. The appendix is visualized and appears normal. Normal abdominal aorta. Normal inferior vena cava. Normal retroperitoneum. Normal abdominal wall. There are diffuse degenerative changes of the visualized lumbar spine. Levoscoliosis. PELVIS Normal urinary bladder. Patient is status post hysterectomy. Normal visualized small intestine. Normal visualized colon. There is no pelvic fluid. There is no pelvic lymphadenopathy or mass lesion. Normal visualized pelvic arteries. Normal abdominal wall. There are diffuse degenerative changes of the visualized lumbar spine. CT/CT Chest, Abd, Pel w/Contrast IMPRESSION: Right renal cyst. Prior cholecystectomy. No acute abnormality is seen. Electronically Signed: Jason Coleman MD at 12:33 EST ,
--- NOTE | 2021-08-18 12:10 | RAD_ITS ---
STUDY: X-RAY - RIGHT SHOULDER REASON FOR EXAM: Female, 55 years old. Trauma -- include clavicle TECHNIQUE: 2 view(s) of the shoulder. COMPARISON: None. FINDINGS: Normal glenohumeral articulation. There is degenerative arthrosis of the acromioclavicular joint without inferior osseous spur formation. Normal acromion. Normal humeral head and visualized proximal humerus. The soft tissue structures are unremarkable. Normal visualized pulmonary apex. RAD/Shoulder min 2 Views IMPRESSION: Degenerative change of the right acromial clavicular joint. Electronically Signed: Jason Coleman MD at 12:36 EST ,
--- NOTE | 2021-08-18 12:10 | RAD_ITS ---
STUDY: X-RAY - RIGHT HUMERUS REASON FOR EXAM: Female, 55 years old. Trauma TECHNIQUE: 3 view(s) of the humerus. COMPARISON: Comparison is made with prior study dated 07/22/2021. FINDINGS: Normal visualized humerus. There is no demonstrated fracture or osseous destructive process. There is no demonstrated soft tissue abnormality. RAD/Humerus min 2 Views IMPRESSION: Normal x-ray examination of the humerus. Electronically Signed: Jason Coleman MD at 12:35 EST ,
[2021-08-18 13:37] VITALS: BP 118/85; PULSE 66; RESP 19; O2SAT 96
== END 2021-08-18 14:28 | disposition home or self-care (01) ==
PROVIDERS: Emergency Provider Emergency Medicine; PCP Internal Medicine; Visit Provider Emergency Medicine
DX: S20.20XA Contusion of thorax, unspecified, initial encounter (principal); J44.9 Chronic obstructive pulmonary disease, unspecified; I11.0 Hypertensive heart disease with heart failure; I50.30 Unspecified diastolic (congestive) heart failure; E66.01 Morbid (severe) obesity due to excess calories; G40.909 Epilepsy, unspecified, not intractable, without status epilepticus; S40.011A Contusion of right shoulder, initial encounter; W19.XXXA Unspecified fall, initial encounter; E78.5 Hyperlipidemia, unspecified; I25.10 Atherosclerotic heart disease of native coronary artery without angina pectoris; I25.2 Old myocardial infarction; K21.9 Gastro-esophageal reflux disease without esophagitis; E03.9 Hypothyroidism, unspecified; G47.33 Obstructive sleep apnea (adult) (pediatric); F32.A Depression, unspecified; F41.9 Anxiety disorder, unspecified; Z99.81 Dependence on supplemental oxygen; Z79.01 Long term (current) use of anticoagulants; Z79.899 Other long term (current) drug therapy; Z87.891 Personal history of nicotine dependence; Z86.74 Personal history of sudden cardiac arrest; Z86.711 Personal history of pulmonary embolism; Z86.718 Personal history of other venous thrombosis and embolism; Z86.73 Personal history of transient ischemic attack (TIA), and cerebral infarction without residual deficits
CPT/HCPCS: 71260; 73030; 73060; 74177; 80048; 85025; 85610; 85730; 96361; 96374; 96376; 99285; J7030; Q9967; A4216

== ENCOUNTER 2021-08-25 23:49 | Inpatient (IN) | payer MEDICAID, SELFPAY ==
[2021-08-25 23:50] VITALS: BP 105/54; PULSE 108; RESP 12; TEMP 36.3; O2SAT 95; BMI 43.4
--- NOTE | 2021-08-25 23:59 | EKG12_ITS ---
Test Reason : DYSRHYTHMIA Blood Pressure : / mmHG Vent. Rate : 106 BPM Atrial Rate : 106 BPM P-R Int : 144 ms QRS Dur : 090 ms QT Int : 378 ms P-R-T Axes : 035 002 022 degrees QTc Int : 502 ms Sinus tachycardia Inferior infarct , age undetermined Abnormal ECG Confirmed by TOBY BATISTA, CHARLENE ([id number]), content editor SAUMYA PERAZA ([id number]) on 08/29/2021 12:55:29 PM Referred By: RODRÍGUEZ Confirmed By:CHARLENE LUIS MD
[2021-08-26] VITALS (7 sets, daily range): BP systolic 94–132; BP diastolic 58–83; PULSE 72–135; RESP 16–20; TEMP 36.2–37.2; O2SAT 97–100; BMI 41.8
--- NOTE | 2021-08-26 | RAD_ITS ---
EXAM: XR CHEST, 1 VIEW CLINICAL INDICATION: cough TECHNIQUE: Frontal view of the chest. This report was created using [employer] report generation technology. COMPARISON: None. FINDINGS: LUNGS AND PLEURAL SPACES: Heterogeneous airspace disease involving the right lower lobe. Consider atelectasis versus infiltrate. No pneumothorax. No effusion. HEART: Unremarkable. Cardiac silhouette not enlarged. MEDIASTINUM: Central airways and mediastinal contour are unremarkable. BONES/JOINTS: Unremarkable. SOFT TISSUES: Unremarkable. RAD/Chest 1 View (Portable) IMPRESSION: Heterogeneous airspace disease involving the right lower lobe. Consider atelectasis versus infiltrate. Electronically Signed: Cooper Van MD at 0:38 EST ,
--- NOTE | 2021-08-26 00:02 | EDS_ITS ---
HPI History of Present Illness Chief Complaint: Weakness Detail of Chief Complaint: Generalized weakness Informant: patient Narrative Narrative: Patient presents to the emergency department via EMS with main complaint of feeling weak and fatigued. Patient describes a choking episode about 8 PM when she was taking her medications and eating steak and a piece of steak got stuck in her throat and she started choking. Patient states that f amily member stated that she started to turn blue a little bit and may have passed out for short time. Eventually the obstruction was resolved. Patient also states that she has had a couple nosebleeds today and she has vomited blood x2. The blood vomiting started before she had a nosebleed. Patient on Xarelto for history of A. fib. Patient denies any chest pain other than when she coughs. She states she had a cough for about 2 weeks. Patient also currently apparently has a UTI but has not started antibiotic yet. She denies any fevers. Patient has had both Covid vaccines but not booster. [facility] Medical History (Updated 08/26/21 @ 01:[address] Geovani Hilliard, ) Abnormal cardiac enzyme level Acute and chronic respiratory failure Acute respiratory failure with hypoxia and hypercapnia LEIGH ANN (acute kidney injury) Anemia Anemia Anxiety and depression Back pain Bilateral peripheral pulmonary emboli BiPAP (biphasic positive airway pressure) dependence Breast infection Cancer Cardiac arrest Cardiology follow-up encounter Cardiopulmonary arrest with successful resuscitation Chest pain Chronic anemia Chronic narcotic dependence Compression fracture of T5 vertebra Compression fracture of T6 vertebra Congestive heart failure COPD (chronic obstructive pulmonary disease) COPD exacerbation Coronary artery disease CPAP (continuous positive airway pressure) dependence Debility Dependence on continuous supplemental oxygen Depression Diastolic dysfunction DVT (deep vein thrombosis) in DVT (deep venous thrombosis) Essential hypertension Fall Former smoker GERD (gastroesophageal reflux disease) HLD (hyperlipidemia) Hx of cardiovascular stress test Hx of echocardiogram Hypertension Hypothyroidism Morbid obesity MSSA (methicillin susceptible Staphylococcus aureus) pneumonia Myocardial infarct Obesity On home oxygen therapy STEPHANIE (obstructive sleep apnea) Pulmonary embolism Restrictive lung disease Right rib fracture Seizure disorder Seizures Sleep apnea SOB (shortness of breath) Syncope and collapse TIA (transient ischemic attack) TIA (transient ischemic attack) Wears dentures Wears glasses Home Medications albuterol sulfate 90 mcg/actuation aerosol inhaler 2 puff INHALATION Q4H PRN g 08/01/17 [History Last Taken 03/03/18] omeprazole 40 mg capsule,delayed release 40 mg PO DAILY 08/01/17 [History Last Taken 04/05/21] rivaroxaban 20 mg tablet 20 mg PO DAILY #90 tab 03/26/19 [Rx Last Taken 04/01/21] atorvastatin 80 mg tablet 80 mg PO DAILY 03/02/21 [History Last Taken Unknown] venlafaxine 75 mg capsule,extended release 24 hr 75 mg PO DAILY 03/02/21 [History Last Taken 03/22/21 07:30] Dulera 2 puff INHALATION Q12H PRN 03/15/21 [History Last Taken Unknown] acetaminophen 650 mg PO Q4H PRN 04/24/21 [History Last Taken Unknown] venlafaxine 37.5 mg PO DAILY 04/25/21 [History Last Taken Unknown] clonazepam 1 mg PO BID 05/09/21 [History Last Taken Unknown] acetaminophen 1,000 mg PO Q8 #0 tab 05/11/21 [Rx Last Taken Unknown] furosemide [Lasix] 20 mg PO DAILY #30 tab 05/11/21 [Rx Last Taken Unknown] losartan 25 mg PO DAILY #30 tab 05/11/21 [Rx Last Taken Unknown] oxycodone 10 mg PO Q4H PRN PRN 1 Days #10 tab 05/11/21 [Rx Last Taken Unknown] food supplemt, lactose-reduced 118 ml PO DAILY ml 05/24/21 [History Last Taken Unknown] metoprolol succinate 100 mg tablet,extended release 24 hr 100 mg PO DAILY tab 05/24/21 [History Last Taken Unknown] divalproex 250 mg tablet,extended release 24 hr 250 mg PO BID #60 tab 05/30/21 [Rx Last Taken Unknown] levetiracetam 500 mg tablet 500 mg PO BID #60 tab 05/30/21 [Rx Last Taken Unknown] oxycodone-acetaminophen 1 tab PO Q6H PRN PRN 3 Days #12 tablet 07/22/21 [Rx Last Taken Unknown] oxycodone-acetaminophen [Percocet] 1 tab PO Q6H PRN 3 Days #12 tab 08/18/21 [Rx Last Taken Unknown] atorvastatin 80 mg PO DAILY 08/26/21 [History Last Taken Unknown] Allergy/AdvReac Type Severity Reaction Status Date / Time aspirin Allergy Hives Verified 08/25/21 23:55 ibuprofen Allergy Hives Verified 08/25/21 23:55 ketorolac tromethamine Allergy Angioedema Verified 08/25/21 23:55 [From Toradol] meperidine HCl [From Demerol] Allergy seizures Verified 08/25/21 23:55 nitroglycerin Allergy Angioedema Verified 08/25/21 23:55 nut - unspecified Allergy Hives Verified 08/25/21 23:55 Penicillins [PCN] Allergy Hives Verified 08/25/21 23:55 tramadol HCl [From Ultram] Allergy Angioedema Verified 08/25/21 23:55 BENTYL Allergy Itching Uncoded 08/25/21 23:55 Family History Brother Myocardial infarction Asthma Mental disorder Psychiatric care Suicide attempt Father Colon cancer Brother Mental disorder Aunt Parkinson disease Sister Breast cancer Cervical cancer Ovarian cancer Sister Cervical cancer Ovarian cancer Mother Cancer History of blood clots Hypertension Surgical History History of appendectomy History of cholecystectomy History of cholecystectomy History of hysterectomy History of left breast biopsy History of left heart catheterization (LHC) (~04/22/21) Hx of appendectomy S/P lumpectomy, left breast Social History household members: none Smoking Status: Former smoker quit date: 01/21/16 pack-years: 32 second hand exposure: Yes alcohol intake: never substance use type: does not use ROS ROS ED Constitutional Constitutional ED: Reports systems reviewed and no addt'l complaints, except as documented; Denies body ache(s), change in weight or chills Eyes Eyes: Denies acute decrease in peripheral vision, change in vision, double vision or loss of vision ENT ENT ED: Reports none; Denies ear pain, lip swelling, loss taste/smell, neck pain, otalgia or sore throat Cardiovascular Cardiovascular: Reports none; Denies abdominal pain, chest pain with activity, leg edema, lightheadedness, palpitations, rapid heart rate or syncope Respiratory/Chest Respiratory/Chest: Reports none, cough and dyspnea; Denies change in mental status, dry cough, hemoptysis, shortness of breath at rest or shortness of breath with exertion Gastrointestinal Gastrointestinal: Reports none, nausea, vomiting and other Details: Hematemesis ; Denies abdominal pain, change in stool character, diarrhea, hematemesis, hematochezia, melena or rectal bleeding Genitourinary Genitourinary ED: Reports none and dysuria; Denies abdominal discomfort, anuria, genital pain or polyuria Musculoskeletal Musculoskeletal: Reports none; Denies arthralgias, back pain, difficulty walking, extremity pain, muscle weakness or myalgias Integumentary Reports none; Denies abscess or rash Neurologic Neurologic: Reports none and weakness; Denies abnormal gait, confusion, focal weakness, frequent falls, headache(s), loss of vision, numbness, paresthesias, radicular pain or vertigo Psychiatric Psychiatric: Reports systems reviewed and no addt'l complaints, except as documented and none; Denies behavioral changes, confusion, difficulty concentrating, hallucinations, suicidal ideation, tactile hallucinations or visual hallucinations Endocrine Endocrinology: Denies none, cold intolerance, excessive sweating, fatigue or heat intolerance Hematologic/Lymphatic Hematologic/Lymphatic: Reports none; Denies anemia, easy bleeding or easy bruis ing Allergic/Immunologic Allergic/Immunologic ED: Denies as per HPI, none, lip swelling, mouth swelling, throat swelling, tongue swelling or hives EXAM Physical Exam Const Vital Signs: 08/25/21 23:50 08/25/21 23:55 Temperature 97.3 F L Temperature Source Temporal Pulse Rate 108 H Respiratory Rate 12 Respiratory Effort Normal Non-Labored Respiratory Pattern Normal Blood Pressure 105/54 L Blood Pressure Mean 71 Pulse Ox 95 Oxygen Delivery Method Nasal Cannula Oxygen Flow Rate (L/min) 3 Positive well nourished and well developed General Appearance ED: well developed and NAD HEENT Reports TM's clear and moist mucous membranes HEENT Narrative: Dried blood in both nasal vaults normocephalic and atraumatic; Negative for trauma or tenderness Tympanic Membrane ED: Yes TM's clear Eyes PERRL and EOMs intact bilaterally General Eye ED: Negative for pale conjunctiva or scleral icterus Neck no lymphadenopathy, supple and no JVD General: Negative for tenderness Chest Wall inspection of chest normal and palpation of chest normal Chest: Negative for tenderness Resp normal respiratory effort and clear to auscultation bilaterally Effort and Inspection: Negative for respiratory distress or pain with movement Auscultation: rhonchi; Negative for wheezes or diminished lung sounds Cardio regular rate, regular rhythm, S1 normal heart sound, S2 normal heart sound and no murmurs Peripheral Pulses: pulses 2+ throughout GI normal to inspection, nondistended, normoactive bowel sounds, soft to palpation, non-tender, non-distended and no masses Back/Spine no CVA tenderness and no thoracic nor lumbar tenderness Extremity normal to inspection General Extremety ED: Negative for edema General Extremity: Negative for edema Neuro oriented x3, CN's II-XII intact bilaterally, no sensory deficits noted and gait normal Sensorium / Orientation: awake, alert, oriented to person, oriented to place and oriented to time Motor Exam: strength 5/5 throughout and strength abnormal Psych mental status grossly normal Skin no rashes or lesions noted and no wounds MDM MDM MDM Narrative Medical decision making narrative: IV line established on arrival. Patient had blood cultures ordered. Patient was given normal saline. Patient had a type and screen. Urine was significant for UTI and chest x-ray was suspicious for right lower lobe pneumonia. Patient was started on Levaquin 750 mg IV. Patient noted to have acute kidney injury as well. Case discussed with hospitalist will evaluate patient for admission. Patient has had no further vomiting here. Lab Data Attestation: I reviewed the patient's lab results. Labs: Laboratory Results - last 24 hr 08/26/21 08/26/21 08/26/21 00:02 00:02 00:30 WBC 9.4 RBC 2.95 L Hgb 8.9 L Hct 28.2 L MCV 95.6 MCH 30.2 MCHC 31.6 L RDW Std Deviation 50.2 H RDW Coeff of Immanuel 14.5 Plt Count 250 MPV 11.3 Immature Gran % (Auto) 0.200 Neut % (Auto) 65.2 Lymph % (Auto) 23.9 [place] % (Auto) 7.1 Eos % (Auto) 3.2 Baso % (Auto) 0.4 Absolute Neuts (auto) 6.2 Absolute Lymphs (auto) 2.25 Nucleated RBC % 0 Sodium 134 L Potassium 4.7 Chloride 102 Carbon Dioxide 24.0 Anion Gap 8 BUN 48 H Creatinine 2.21 H Estim Creat Clear Calc 26.93 Est GFR (MDRD) Af Amer 30 L Est GFR (MDRD) Non-Af 24 L BUN/Creatinine Ratio 21.7 H Glucose 99 Calcium 9.0 Total Bilirubin 0.30 AST 72 H ALT 91 H Alkaline Phosphatase 113 Total Protein 7.6 Albumin 3.4 Globulin 4.2 Albumin/Globulin Ratio 0.8 L Urine Color Yellow Urine Clarity Cloudy Urine pH 5.0 Ur Specific [place] 1.020 Urine Protein 30 H Urine Glucose (UA) Normal Urine Ketones Negative Urine Occult Blood 25 H Urine Nitrite Positive H Urine Bilirubin Negative Urine Urobilinogen Normal Ur Leukocyte Esterase 500 H Urine RBC 0-5 SEEN Urine WBC >100 SEEN Ur Squamous Epith Cells 0 SEEN Urine Bacteria 4+ Urine Mucus 0 SEEN Radiography Chest X-Ray - ED: 1 View Diagnostic Testing: Clinical Impression(s) from Imaging Studies Chest X-Ray 08/26/21 00:00 IMPRESSION: Heterogeneous airspace disease involving the right lower lobe. Consider atelectasis versus infiltrate. Electronically Signed: Cooper Van MD at 0:38 EST , 1 view chest x-ray obtained interpreted by myself as no acute disease process. Radiology felt there was heterogenous airspace disease involving right lower lobe consider atelectasis versus infiltrate EKG Initial EKG: Attestation: I personally reviewed and interpreted this EKG as follows: Comments: Sinus tachycardia with old inferior infarct Discharge Plan Dx/Rx/DC Orders Clinical Impression: UTI (urinary tract infection), LEIGH ANN (acute kidney injury), Hematemesis, Weakness, Pneumonia Disposition Disposition: Acute Care [facility]
[2021-08-26 00:09] LABS: Absolute Lymphocyte Count 2.25 X10^3/uL (0.83-4.51); Absolute Neutrophil Count 6.2 X10^3/uL (2.0-7.7); Basophil# 0.04 X10^3/uL; Basophil% 0.4 % (0-1); Eosinophils% 3.2 % (0-5); Hematocrit 28.2 % (37-47); Hemoglobin 8.9 g/dL (12.0-15.0); Lymphocyte # 2.25 X10^3/ul (0.83-4.51); Lymphocyte % 23.9 % (19-41); Mean Corp Hgb Conc 31.6 g/dL (32-36); Mean Corpuscular Hgb 30.2 pg (27.0-32.0); Mean Corpuscular Volume 95.6 fL (81-99); Mean Platelet Vol. 11.3 fl (6.2-12.0); Monocyte# 0.67 X10^3/uL; Monocyte% 7.1 % (0-10); NRBC Flagged by Analyzer 0 % (0-5); Neutrophil # 6.15 X10^3/uL (2.7-7.7); Neutrophil % 65.2 % (47-70); Platelet Count 250 K/mm3 (150-450); RBC Distribution Width CV 14.5 % (11.6-14.6); RBC Distribution Width SD 50.2 fl (35.1-43.9); Red Blood Count 2.95 M/mm3 (4.2-5.4); White Blood Count 9.4 K/mm3 (4.4-11.0)
[2021-08-26] MEDS: 0.9% Normal Saline 1,000 ML 125 ML IV (00:13)
[2021-08-26] MEDS: Ondansetron 4 MG/2 ML Vial IV ×2 (00:13→01:08)
[2021-08-26 00:32] LABS: ALB/GLOB Ratio 0.8 RATIO (0.9-2.4); AST(SGOT) 72 U/L (15-37); Alanine Aminotransfer ALT/SGPT 91 U/L (13-56); Albumin, Serum 3.4 g/dL (3.2-5.0); Alkaline Phosphatase 113 U/L (45-117); Anion Gap 8 (5-15); BUN 48 mg/dL (7-18); BUN/Creat Ratio 21.7 RATIO (10-20); Chloride 102 mmol/L (98-107); Creatinine, Serum 2.21 mg/dL (0.55-1.02); EST Glomerular Filtration Rate 24 mL/min (>60); Est Glom Filt Rate - Afr Amer 30 mL/min (>60); Estimated Creatinine Clearance 26.93 ml/min; Globulin 4.2 g/dL (2.2-4.2); Glucose 99 mg/dL (74-106); Potassium 4.7 mmol/L (3.5-5.1); Protein, Total 7.6 g/dL (6.4-8.2); Sodium Level 134 mmol/L (136-145)
[2021-08-26 00:36] LABS: Color, Urine Yellow (Yellow); Glucose, Dipstick Normal (Normal); Ketone-Dipstick Negative (Negative); Leukocyte Esterase-Dipstick 500 /ul (Negative); Mucous, Urine 0 SEEN /hpf (<or=2+); Nitrite-Dipstick Positive (Negative); Occult Blood-Urine 25 /ul (Negative); Protein-Dipstick 30 mg/dl (Negative); Squamous Epithelial Cells - UA 0 SEEN /hpf (5-10); Urine Bilirubin Dipstick Negative (Negative); Urine Clarity Cloudy (Clear); Urine Urobilinogen Normal (Normal)
[2021-08-26 00:51] LABS: Bacteria 4+ /hpf (None Seen); Red Blood Cells-Urine 0-5 SEEN /hpf (0-5); White Blood Cells >100 SEEN /hpf (0-5)
[2021-08-26] MEDS: levoFLOXacin IV 750 MG/150 ML BAG 100 MG IV (01:04)
[2021-08-26 01:08] LABS: Troponin-I HS 6 pg/mL (3.0-54.0)
[2021-08-26] MEDS: Morphine 4 MG/ML Syringe IV (01:08)
--- NOTE | 2021-08-26 01:32 | HP.PCM.HOS_ITS ---
HPI - General General Date of Admission: 08/26/21 HPI Narrative LUIS A CUMMINGS, is a 55 F with a significant history of seizures; cardiac arrest; obstructive sleep apnea; pulmonary embolism on Xarelto who presents to the emergency department with bleeding episodes. She reported she woke up several hours before presentation and she realized that she had vomited blood. Also she reports epistaxis. Further, she choked on a piece of steak but was able to bring it out. She has had a dry cough for the past 2 weeks. At baseline she is on home oxygen of 3 L. She reports some difficulty in breathing above her baseline. Furthermore patient was prescribed antibiotics outpatient for UTI but she has not been able to pick it up. She has not picked that because she does not drive but rather depends on her in- law for things involving a ride She reported she has been in the wheelchair ever since she had a cardiac arrest in March 2021. [facility] Medical History Abnormal cardiac enzyme level Acute and chronic respiratory failure Acute respiratory failure with hypoxia and hypercapnia LEIGH ANN (acute kidney injury) Anemia Anemia Anxiety and depression Back pain Bilateral peripheral pulmonary emboli BiPAP (biphasic positive airway pressure) dependence Breast infection Cancer Cardiac arrest Cardiology follow-up encounter Cardiopulmonary arrest with successful resuscitation Chest pain Chronic anemia Chronic narcotic dependence Compression fracture of T5 vertebra Compression fracture of T6 vertebra Congestive heart failure COPD (chronic obstructive pulmonary disease) COPD exacerbation Coronary artery disease CPAP (continuous positive airway pressure) dependence Debility Dependence on continuous supplemental oxygen Depression Diastolic dysfunction DVT (deep vein thrombosis) in DVT (deep venous thrombosis) Essential hypertension Fall Former smoker GERD (gastroesophageal reflux disease) HLD (hyperlipidemia) Hx of cardiovascular stress test Hx of echocardiogram Hypertension Hypothyroidism Morbid obesity MSSA (methicillin susceptible Staphylococcus aureus) pneumonia Myocardial infarct Obesity On home oxygen therapy STEPHANIE (obstructive sleep apnea) Pulmonary embolism Restrictive lung disease Right rib fracture Seizure disorder Seizures Sleep apnea SOB (shortness of breath) Syncope and collapse TIA (transient ischemic attack) TIA (transient ischemic attack) Wears dentures Wears glasses Home Medications albuterol sulfate 90 mcg/actuation aerosol inhaler 2 puff INHALATION Q4H PRN g 08/01/17 [History Last Taken 03/03/18] omeprazole 40 mg capsule,delayed release 40 mg PO DAILY 08/01/17 [History Last Taken 04/05/21] rivaroxaban 20 mg tablet 20 mg PO DAILY #90 tab 03/26/19 [Rx Last Taken 04/01/21] venlafaxine 75 mg capsule,extended release 24 hr 75 mg PO DAILY 03/02/21 [History Last Taken 03/22/21 07:30] Dulera 2 puff INHALATION Q12H PRN 03/15/21 [History Last Taken Unknown] venlafaxine 37.5 mg PO DAILY 04/25/21 [History Last Taken Unknown] clonazepam 1 mg PO BID 05/09/21 [History Last Taken Unknown] furosemide [Lasix] 20 mg PO DAILY #30 tab 05/11/21 [Rx Last Taken Unknown] losartan 25 mg PO DAILY #30 tab 05/11/21 [Rx Last Taken Unknown] food supplemt, lactose-reduced 118 ml PO DAILY ml 05/24/21 [History Last Taken Unknown] metoprolol succinate 100 mg tablet,extended release 24 hr 100 mg PO DAILY tab 05/24/21 [History Last Taken Unknown] divalproex 250 mg tablet,extended release 24 hr 250 mg PO BID #60 tab 05/30/21 [Rx Last Taken Unknown] levetiracetam 500 mg tablet 500 mg PO BID #60 tab 05/30/21 [Rx Last Taken Unknown] atorvastatin 80 mg PO DAILY 08/26/21 [History Last Taken Unknown] mirtazapine 7.5 mg PO QHS 08/26/21 [History Last Taken Unknown] spironolactone 50 mg PO DAILY 08/26/21 [History Last Taken Unknown] Allergy/AdvReac Type Severity Reaction Status Date / Time aspirin Allergy Hives Verified 08/25/21 23:55 dicyclomine Allergy Itching Verified 08/26/21 02:39 ibuprofen Allergy Hives Verified 08/25/21 23:55 ketorolac tromethamine Allergy Angioedema Verified 08/25/21 23:55 [From Toradol] meperidine HCl [From Demerol] Allergy seizures Verified 08/25/21 23:55 nitroglycerin Allergy Angioedema Verified 08/25/21 23:55 nut - unspecified Allergy Hives Verified 08/25/21 23:55 Penicillins [PCN] Allergy Hives Verified 08/25/21 23:55 tramadol HCl [From Ultram] Allergy Angioedema Verified 08/25/21 23:55 Family History Brother Myocardial infarction Asthma Mental disorder Psychiatric care Suicide attempt Father Colon cancer Brother Mental disorder Aunt Parkinson disease Sister Breast cancer Cervical cancer Ovarian cancer Sister Cervical cancer Ovarian cancer Mother Cancer History of blood clots Hypertension Surgical History History of appendectomy History of cholecystectomy History of cholecystectomy History of hysterectomy History of left breast biopsy History of left heart catheterization (LHC) (~04/22/21) Hx of appendectomy S/P lumpectomy, left breast Social History household members: none Smoking Status: Former smoker quit date: 01/21/16 pack-years: 32 second hand exposure: Yes alcohol intake: never substance use type: does not use ROS ROS Narrative Constitutional: Reports chills and anorexia. Denies fever, and change in weight Eyes: Denies blurry vision, change in eye color, change in vision, discharge from eye(s), double vision, erythema, eye pain, loss of vision or other HEENT: She reports dysphagia. She reports epistaxis. She reports chronic tinnitus. Denies abnormal hearing, ear pain, headache(s), hearing loss, nasal congestion, nasal discharge, post nasal drip, sinus pressure, sore throat or other Cardiovascular: Reports palpitations. Denies chest pain . Respiratory/Chest: Reports dry cough. Reports shortness of breath. Gastrointestinal: Reports hematemesis. Reports nausea and vomiting. Denies abdominal pain, coffee ground emesis, constipation, diarrhea, dyspepsia, hematochezia, loose stools, melena, or other Genitourinary: Reports increased frequency of urination. Denies burning ur ination, difficulty urinating, dysuria, hematuria, urinary hesitancy, urinary incontinence, urinary urgency or other Musculoskeletal: Denies arthralgias, back pain, joint pain, joint stiffness, joint swelling, myalgias, neck pain or other Neurologic: Reports tremors (chronic). Denies abnormal speech, confusion, disequilibrium, dizziness, focal weakness, headache(s), numbness, paresthesias, seizure-like activity, seizures, syncope, tingling, tremor(s) or other Psychiatric: Denies anxiety, depression, homicidal ideation, suicidal ideation or other Endocrinology: Denies change in body appearance, cold intolerance, excessive sweating, heat intolerance, polydipsia, polyuria or other Hematologic/Lymphatic: Reports hematemesis and epistaxis. Denies lymphadenopathy or other Integumentary: Denies rashes Allergic/Immunologic: Denies rhinitis, hives, eczema, asthma or other Vital Signs Vital Signs Vital Signs: 08/25/21 23:50 08/25/21 23:55 08/26/21 01:10 Temperature 97.3 F L 97.2 F L Temperature Source Temporal Temporal Pulse Rate 108 H 99 Respiratory Rate 12 17 Respiratory Effort Normal Non-Labored Respiratory Pattern Normal Blood Pressure 105/54 L 120/80 Blood Pressure Mean 71 93 Pulse Ox 95 100 Oxygen Delivery Method Nasal Cannula Nasal Cannula Oxygen Flow Rate (L/min) 3 3 Weight Weight: 122 kg Body Mass Index (BMI) 43.4 Physical Exam Narrative Physical exam: General: Well-nourished, well-developed. Head: Normocephalic, atraumatic, no tenderness Eyes: PERRLA, EOMI ENT: moist mucous membranes, no rhinorrhea Neck: Nontender, full range of motion, no spinal tenderness, deformities, step- off CVS: Regular rate and rhythm. S1-S2 present. No murmur, gallop or rub. Respiratory : Coughing at time of examination; Bibasilar rales bilaterally, chest wall nontender, no wheezing Abdomen: Soft, nontender, nondistended, normal bowel sounds, no masses : Deferred Back: Nontender, no CVA tenderness, no midline spinal tenderness, deformities, step-offs Extremities: Nontender full range of motion, no trauma Skin: Normal color, no trauma, abrasions Neuro: Alert, oriented, cranial nerves II through XII grossly intact. Psychiatry: Normal mood. Normal affect. Not depressed. Not anxious. Results Lab / Micro Data Result Diagrams: 08/26/21 00:02 08/26/21 00:02 Labs: Laboratory Results - last 24 hr 08/26/21 00:02: WBC 9.4, RBC 2.95 L, Hgb 8.9 L, Hct 28.2 L, MCV 95.6, MCH 30.2, MCHC 31.6 L, RDW Std Deviation 50.2 H, RDW Coeff of Immanuel 14.5, Plt Count 250, MPV 11.3, Immature Gran % (Auto) 0.200, Neut % (Auto) 65.2, Lymph % (Auto) 23.9, [place] % (Auto) 7.1, Eos % (Auto) 3.2, Baso % (Auto) 0.4, Absolute Neuts (auto) 6.2, Absolute Lymphs (auto) 2.25, Nucleated RBC % 0 08/26/21 00:02: Sodium 134 L, Potassium 4.7, Chloride 102, Carbon Dioxide 24.0, Anion Gap 8, BUN 48 H, Creatinine 2.21 H, Estim Creat Clear Calc 26.93, Est GFR (MDRD) Af Amer 30 L, Est GFR (MDRD) Non-Af 24 L, BUN/Creatinine Ratio 21.7 H, Glucose 99, Calcium 9.0, Total Bilirubin 0.30, AST 72 H, ALT 91 H, Alkaline Phosphatase 113, Total Protein 7.6, Albumin 3.4, Globulin 4.2, Albumin/Globulin Ratio 0.8 L 08/26/21 00:02: Troponin I High Sens 6 08/26/21 00:14: Blood Type A POSITIVE, Antibody Screen NEGATIVE 08/26/21 00:30: Urine Color Yellow, Urine Clarity Cloudy, Urine pH 5.0, Ur Specific [place] 1.020, Urine Protein 30 H, Urine Glucose (UA) Normal, Urine Ketones Negative, Urine Occult Blood 25 H, Urine Nitrite Positive H, Urine Bilirubin Negative, Urine Urobilinogen Normal, Ur Leukocyte Esterase 500 H, Urine RBC 0-5 SEEN, Urine WBC >100 SEEN, Ur Squamous Epith Cells 0 SEEN, Urine Bacteria 4+, Urine Mucus 0 SEEN Micro: Microbiology 08/26/21 00:08 Nasal Secretion SARS-CoV-2 Antigen (Rapid) - Final Radiology Impression Chest X-Ray 08/26/21 00:00 IMPRESSION: Heterogeneous airspace disease involving the right lower lobe. Consider atelectasis versus infiltrate. Electronically Signed: Cooper Van MD at 0:38 EST , Assessment & Plan Assessment/Plan (1) UTI (urinary tract infection): QUALIFIERS: Hematuria presence: without hematuria Urinary tract infection type: acute cystitis Qualified Code(s): N30.00 - Acute cystitis without hematuria (2) LEIGH ANN (acute kidney injury): (3) Pneumonia: QUALIFIERS: Aspiration pneumonia type: due to vomit Laterality: bilateral Lung location: lower lobe of lung Pneumonia type: aspiration pneumonia Qualified Code(s): J69.0 - Pneumonitis due to inhalation of food and vomit (4) Hematemesis: QUALIFIERS: Nausea presence: with nausea Qualified Code(s): K92.0 - Hematemesis (5) Weakness: PLAN: Acute cystitis Review of urinalysis showed positive nitrite; leukocyte Estrace of 500; more than 100 WBC; urine bacteria 4+; urine protein of 30. Urine culture and blood culture ordered at the emergency department. Lactic acid of 0.6 CBC reviewed showed white count of 9.4. Creatinine clearance of 26.93. Received Levaquin at the emergency department. Levaquin ordered; dosed by creatinine clearance. LEIGH ANN On presentation her creatinine was 2.21. Review of records shows creatinine baseline of less than 1. BUN is 48. Review of previous labs showed that current BUN is more than doubled previous highest BUN. BUN over creatinine 21.7. Likely prerenal. Hold nephrotoxins including losartan and Lasix. Gentle IV hydration. Trend BMP. Aspiration pneumonia Brief episode of waking up and with possible hematemesis and choking spell aspiration pneumonia is likely. Actual chest x-ray image was independently interpreted mild opacity/atelectasis at right lower lung yip. Auscultation with mild bibasilar Rales. Review of records shows echocardiogram on 04/15/2021 with estimated ejection fraction of 55% Rapid Covid antigen was negative. Patient has received 2 vaccination yet to receive a booster. She has not been able to receive a booster because of transportation difficulties. Chest x-ray does not look like Covid. Levaquin as above. Incentive spirometer ordered. As needed guaifenesin liquid ordered. Hematemesis and epistaxis Hemoglobin on presentation was 8.9. Hemoglobin is low but within baseline. Clinical monitoring. At this time we will continue patient Xarelto for PE. Trend CBC. Protonix 40 mg IV twice daily. Generalized weakness Reportedly patient is of wheelchair-bound since March 2021 after a cardiac arrest with successful ROSC. PT OT to evaluate and treat. Dysphagia Speech therapy consult for swallow evaluation. Obstructive sleep apnea and chronic home oxygen use BiPAP ordered with oxygen bled in at night and as needed for sleep. Continue supplemental oxygen to keep oxygen saturation to more than 90%. DVT prophylaxis Not indicated since patient is on Xarelto, Xarelto continued. Charges/Coding Visit Charges Inpatient E&M: 11561 Init Hosp L3
[2021-08-26 01:39] LABS: Lactic Acid 0.6 mmol/L (0.4-1.9)
[2021-08-26] MEDS: 0.9% Normal Saline 1,000 ML 75 ML IV ×2 (02:51→17:29)
[2021-08-26] MEDS: Acetaminophen 325 MG Tablet 650 MG PO ×2 (03:53→20:26)
[2021-08-26 05:05] LABS: Absolute Lymphocyte Count 2.44 X10^3/uL (0.83-4.51); Absolute Neutrophil Count 4.9 X10^3/uL (2.0-7.7); Basophil# 0.04 X10^3/uL; Basophil% 0.5 % (0-1); Eosinophil# 0.35 X10^3/uL; Eosinophils% 4.1 % (0-5); Hematocrit 27.2 % (37-47); Hemoglobin 8.4 g/dL (12.0-15.0); Lymphocyte # 2.44 X10^3/ul (0.83-4.51); Lymphocyte % 28.7 % (19-41); Mean Corp Hgb Conc 30.9 g/dL (32-36); Mean Corpuscular Hgb 30.1 pg (27.0-32.0); Mean Corpuscular Volume 97.5 fL (81-99); Mean Platelet Vol. 11.7 fl (6.2-12.0); Monocyte% 9.4 % (0-10); NRBC Flagged by Analyzer 0 % (0-5); Neutrophil # 4.86 X10^3/uL (2.7-7.7); Neutrophil % 57.1 % (47-70); Platelet Count 241 K/mm3 (150-450); RBC Distribution Width CV 14.4 % (11.6-14.6); RBC Distribution Width SD 51.4 fl (35.1-43.9); Red Blood Count 2.79 M/mm3 (4.2-5.4); White Blood Count 8.5 K/mm3 (4.4-11.0)
[2021-08-26] MEDS: metroNIDAZOLE 500 MG/100 ML BAG 100 MG IV ×3 (05:05→20:25)
[2021-08-26 05:33] LABS: Anion Gap 5 (5-15); BUN 48 mg/dL (7-18); BUN/Creat Ratio 27.3 RATIO (10-20); Calcium,Total 8.7 mg/dL (8.5-10.1); Chloride 103 mmol/L (98-107); Creatinine, Serum 1.76 mg/dL (0.55-1.02); EST Glomerular Filtration Rate 32 mL/min (>60); Est Glom Filt Rate - Afr Amer 38 mL/min (>60); Estimated Creatinine Clearance 33.81 ml/min; Glucose 90 mg/dL (74-106); Potassium 4.7 mmol/L (3.5-5.1); Sodium Level 134 mmol/L (136-145)
[2021-08-26] MEDS: Metoprolol(XL)Succ 100 MG Tablet PO (08:11)
--- NOTE | 2021-08-26 10:23 | PCM.PN.BLA ---
Progress Note She is being maintained on her home oxygen requirements of 3 L nasal cannula, no significant worsening. Physical exam is unremarkable she does have some diminished lung sounds on the right lower lobe. Awaiting culture results from her urine culture to narrow antibiotic choices. Discussed with nursing staff to add humidification to her oxygen as well as to provide her with nasal saline as she is having minor epistaxis
[2021-08-26] MEDS: Venlafaxine XR 37.5 MG Capsule PO (10:55)
[2021-08-26] MEDS: Venlafaxine XR 75 MG Capsule PO (10:55)
[2021-08-26] MEDS: levETIRAcetam 500 MG Tablet PO ×2 (10:55→20:24)
[2021-08-26] MEDS: Divalproex (ER) 250 MG Tablet PO ×2 (10:55→20:26)
[2021-08-26] MEDS: clonazePAM 1 MG Tablet PO ×2 (10:59→20:24)
--- NOTE | 2021-08-26 12:05 | CASEMGMT ---
Addendum entered by Lata Santana 08/26/21 14:12: TC from [facility] at [facility]. She confirmed pt is active with them for PT and OT. She is aware pt is hospitalized and will add SN to referral d/t UTI. Faxed referral at this time. Addendum entered by Lata Santana 08/26/21 12:59: TC to [facility] [facility] as pt dc'd to there last from [facility]. Spoke with who states pt was set up with [facility]. TC to [facility], this RN CM will receive call back to confirm they are actively seeing pt. Original Note: RN CM Assessment: Face to Face with pt for initial transition planning/care coordination assessment. RN CM introduced self and role at [facility], pt voices understanding and consents to assessment. Pt is A/O x4 and answers all questions appropriately at this time. Pt sitting up in bed with O2 on in no distress. Care providers, pharmacy, and demographics verified/updated. Admitting Dx: acute UTI, LEIGH ANN PCP:Tarik Specialists:Gloria neuro; counselor Preferred Pharmacy: [facility] Insurance: [facility] Prescription Benefit: yes LW/HPOA: Pt denies having a LW/DPOA and denies need for info regarding AD. LNOK: Mike Banda, brother; Deanne Banda, gabriela Living Arrangements: Pt lives with her son and his fiance. Pt states they come and go but are not reliable for assistance to her. Pt states she can dress herself but has difficulties bathing herself. She states she has a deep tub with a ledge to get in and she has fallen from it. Transportation: Pt gabriela transports pt to medical appts. DME/HHC/SNF: Pt has O2 through [employer] at 3L cont, w/c, FWW and medic alert. Pt states she has HHC therapy currently but is unsure who it is set up with. States her therapist's name is Alexander. Pt has been to [facility] and [facility] in the past. Pt states she has applied for the [place] on [address] She states she is awaiting acceptance. Pt states she keeps falling at home. She states she cannot ask her son or his fiance to assist her any more. She states she cannot go to her brother's as she has done before because they have a small house. She states there is no one else to assist her. She denies need to go to a SNF because she has a pomeranian dog at home that she is applying to be a comfort dog. Pt states no further concerns/needs. CM to follow. Advised pt to ask CM if any further question/concerns/needs arise, voices understanding. Pt Goal: Home with [facility] Plan: Home with [facility]
[2021-08-26] MEDS: Rivaroxaban 20 MG Tablet PO (17:29)
[2021-08-26] MEDS: Atorvastatin Calcium 80 MG Tablet PO (20:25)
[2021-08-27] VITALS (7 sets, daily range): BP systolic 102–116; BP diastolic 56–66; PULSE 69–79; RESP 18; TEMP 36.6–37.2; O2SAT 94–97
[2021-08-27] MEDS: metroNIDAZOLE 500 MG/100 ML BAG 100 MG IV ×3 (05:01→21:10)
[2021-08-27 05:45] LABS: Absolute Neutrophil Count 2.7 X10^3/uL (2.0-7.7); Basophil# 0.05 X10^3/uL; Basophil% 0.9 % (0-1); Eosinophil# 0.41 X10^3/uL; Eosinophils% 7.1 % (0-5); Hematocrit 25.7 % (37-47); Hemoglobin 7.7 g/dL (12.0-15.0); Lymphocyte % 36.2 % (19-41); Mean Corpuscular Hgb 29.4 pg (27.0-32.0); Mean Corpuscular Volume 98.1 fL (81-99); Mean Platelet Vol. 11.6 fl (6.2-12.0); Monocyte# 0.54 X10^3/uL; Monocyte% 9.3 % (0-10); NRBC Flagged by Analyzer 0 % (0-5); Neutrophil # 2.68 X10^3/uL (2.7-7.7); Neutrophil % 46.2 % (47-70); Platelet Count 237 K/mm3 (150-450); RBC Distribution Width CV 14.8 % (11.6-14.6); RBC Distribution Width SD 53.4 fl (35.1-43.9); Red Blood Count 2.62 M/mm3 (4.2-5.4); White Blood Count 5.8 K/mm3 (4.4-11.0)
[2021-08-27 06:14] LABS: Anion Gap 2 (5-15); BUN 25 mg/dL (7-18); BUN/Creat Ratio 26.7 RATIO (10-20); Calcium,Total 8.7 mg/dL (8.5-10.1); Chloride 107 mmol/L (98-107); Creatinine, Serum 0.94 mg/dL (0.55-1.02); EST Glomerular Filtration Rate 66 mL/min (>60); Est Glom Filt Rate - Afr Amer 80 mL/min (>60); Glucose 102 mg/dL (74-106); Potassium 4.8 mmol/L (3.5-5.1); Sodium Level 138 mmol/L (136-145)
[2021-08-27] MEDS: Venlafaxine XR 37.5 MG Capsule PO (09:50)
[2021-08-27] MEDS: Venlafaxine XR 75 MG Capsule PO (09:51)
[2021-08-27] MEDS: Divalproex (ER) 250 MG Tablet PO ×2 (09:51→21:09)
[2021-08-27] MEDS: levETIRAcetam 500 MG Tablet PO ×2 (09:51→21:09)
[2021-08-27] MEDS: clonazePAM 1 MG Tablet PO ×2 (09:51→21:09)
[2021-08-27] MEDS: diazePAM 2 MG Tablet PO (09:51)
--- NOTE | 2021-08-27 10:15 | NURSING ---
custom shoemaker in room. Pt c/o chest pain headache. Stat EKG ordered. Dr. Mckeon notified. Troponin orders placed. Tylenol given.
--- NOTE | 2021-08-27 10:23 | EKG12_ITS ---
Test Reason : CP Blood Pressure : / mmHG Vent. Rate : 077 BPM Atrial Rate : 077 BPM P-R Int : 156 ms QRS Dur : 092 ms QT Int : 436 ms P-R-T Axes : 023 -04 013 degrees QTc Int : 493 ms Normal sinus rhythm Prolonged QT Abnormal ECG When compared with ECG of 26-AUG-2021 00:08, MANUAL COMPARISON REQUIRED, DATA IS UNCONFIRMED Confirmed by TOBY BATISTA, CHARLENE ([id number]), development editor SAUMYA PERAZA ([id number]) on 08/30/2021 10:54:54 AM Referred By: INGA Confirmed By:CHARLENE LUIS MD
[2021-08-27] MEDS: Acetaminophen 325 MG Tablet 650 MG PO ×2 (10:28→21:09)
[2021-08-27] MEDS: 0.9% Normal Saline 1,000 ML 75 ML IV (10:53)
[2021-08-27 11:22] LABS: Troponin-I HS 5 pg/mL (3.0-54.0)
--- NOTE | 2021-08-27 11:26 | PN.HOSP_ITS ---
Subjective Subjective She continues to complain about very locations of pain. Per nursing staff she has been asking her outpatient physicians for narcotics as well. She complains of left-sided rib pain and right-sided rib pain. She did have rib fractures back in March after cardiac arrest post CPR. She also had a history of PEs but these were back in 2015 and repeated CTA since then have not demonstrated any PEs. She is also complaining of mostly back pain around where her kidneys are but she thinks it is due to muscle spasms Objective Data Objective Data Vital Signs: Vital Signs Temp Pulse Resp BP Pulse Ox 98.0 F 69 18 105/66 96 08/27/21 10:30 08/27/21 10:47 08/27/21 10:30 08/27/21 10:30 08/27/21 10:30 Oxygen Flow Rate (L/min) 3 Oxygen Delivery Method Nasal Cannula Weight: 259 lb 11.272 oz Body Mass Index (BMI) 41.8 Intake & Output: Intake and Output for Last 24 Hours 08/26/21 08/27/21 08/28/21 03:59 03:59 03:59 Intake Total 422.92 / 422.92 3580 / 3580 1510 / 1510 Output Total 650 / 650 Balance 422.92 / 422.92 2930 / 2930 1510 / 1510 Lab / Micro Data Result Diagrams: 08/27/21 05:10 08/27/21 05:10 Labs: Laboratory Results - last 24 hr 08/27/21 05:10: WBC 5.8, RBC 2.62 L, Hgb 7.7 L, Hct 25.7 L, MCV 98.1, MCH 29.4, MCHC 30.0 L, RDW Std Deviation 53.4 H, RDW Coeff of Immanuel 14.8 H, Plt Count 237, MPV 11.6, Immature Gran % (Auto) 0.300, Neut % (Auto) 46.2 L, Lymph % (Auto) 36.2, [place] % (Auto) 9.3, Eos % (Auto) 7.1 H, Baso % (Auto) 0.9, Absolute Neuts (auto) 2.7, Absolute Lymphs (auto) 2.10, Nucleated RBC % 0 08/27/21 05:10: Sodium 138, Potassium 4.8, Chloride 107, Carbon Dioxide 29.0, Anion Gap 2 L, BUN 25 H, Creatinine 0.94, Estim Creat Clear Calc 63.30, Est GFR (MDRD) Af Amer 80, Est GFR (MDRD) Non-Af 66, BUN/Creatinine Ratio 26.7 H, Glucose 102, Calcium 8.7 08/27/21 10:45: Troponin I High Sens 5 Micro: Microbiology 08/26/21 01:00 Urine, Catheterized Urine Culture - Final Presumptive E. coli 08/26/21 00:08 Nasal Secretion SARS-CoV-2 Antigen (Rapid) - Final Physical Exam Const alert, oriented x3 and no apparent distress General Appearance: cooperative Nutritional Appearance: morbidly obese HEENT normocephalic and moist oral mucous membranes Eyes PERRL, EOMs intact bilaterally and conjunctivae normal Neck supple and no JVD Resp normal respiratory effort, no retractions, no use of accessory muscles and clear to auscultation bilaterally Auscultation: diminished lung sounds; Negative for crackles, rales, rhonchi or wheezes Cardio regular rate, regular rhythm, S1 normal heart sound, S2 normal heart sound and no murmurs GI soft to palpation, non-tender and non-distended; Negative for hepatosplenomegaly Extremity no clubbing, cyanosis or edema Skin no rashes or lesions noted Neuro no focal motor deficits and no sensory deficits noted Psych affect normal Appearance: appropriate Assessment & Plan Assessment/Plan (1) UTI (urinary tract infection): QUALIFIERS: Urinary tract infection type: acute cystitis Hematuria presence: without hematuria Qualified Code(s): N30.00 - Acute cystitis without hematuria (2) LEIGH ANN (acute kidney injury): (3) Pneumonia: QUALIFIERS: Pneumonia type: aspiration pneumonia Aspiration pneumonia type: due to vomit Laterality: bilateral Lung location: lower lobe of lung Qualified Code(s): J69.0 - Pneumonitis due to inhalation of food and vomit (4) Hematemesis: QUALIFIERS: Nausea presence: with nausea Qualified Code(s): K92.0 - Hematemesis (5) Weakness: PLAN: 1. Acute E. coli UTI/possible aspiration pneumonia/LEIGH ANN/generalized we akness/dysphagia ?She is resistant having this be the explanation for her kidney pain or the reason why she is here. She states that she was throwing up blood and her hemoglobin is low but not significantly low compared to her baseline ?Continue with Levaquin and Flagyl ?She is on her chronic home O2 ?Remains afebrile without a leukocytosis ?She is on IV fluids with gentle hydration, creatinine has normalized ?States that she has been wheelchair-bound since 2020 after cardiac arrest. Will have PT and OT evaluate her for placement ?Follow-up with speech therapy given the possibility for aspiration ?We will provide her some Valium for her muscle spasms to see if this provides any relief. She is allergic to Toradol 2. Hematemesis/epistaxis/chronic anemia ?Unfortunately no stool occult was ordered on admission, will obtain 1 now ?We will discontinue her Xarelto as her PEs were over 5 years ago ?Continue with PPI ?We will obtain iron studies to further evaluate the source of her anemia 3. STEPHANIE with chronic home O2 ?Encouraged to wear BiPAP at night nasal cannula during the day. We will humidify her oxygen to prevent any epistaxis DVT: SCDs Charges/Coding Visit Charges Inpatient E&M: 87927 Subs Hosp L2
[2021-08-27 11:56] LABS: Ferritin 137 ng/mL (8-252); Iron 51 ug/dL (50-170); Iron Binding Capacity,Total 283 ug/dL (250-450)
[2021-08-27] MEDS: MELATONIN 3 MG TABLET PO (21:09)
[2021-08-27] MEDS: Atorvastatin Calcium 80 MG Tablet PO (21:09)
[2021-08-28] MEDS: 0.9% Normal Saline 1,000 ML 75 ML IV ×2 (00:43→16:51)
[2021-08-28 03:39] VITALS: BP 105/60; PULSE 72; RESP 18; TEMP 36.4; O2SAT 96
[2021-08-28] MEDS: metroNIDAZOLE 500 MG/100 ML BAG 100 MG IV ×3 (05:55→22:36)
[2021-08-28 06:43] LABS: Absolute Neutrophil Count 2.8 X10^3/uL (2.0-7.7); Basophil# 0.04 X10^3/uL; Basophil% 0.7 % (0-1); Eosinophil# 0.24 X10^3/uL; Eosinophils% 4.3 % (0-5); Hematocrit 24.4 % (37-47); Hemoglobin 7.3 g/dL (12.0-15.0); Lymphocyte % 34.2 % (19-41); Mean Corp Hgb Conc 29.9 g/dL (32-36); Mean Corpuscular Hgb 29.4 pg (27.0-32.0); Mean Corpuscular Volume 98.4 fL (81-99); NRBC Flagged by Analyzer 0 % (0-5); Neutrophil # 2.84 X10^3/uL (2.7-7.7); Neutrophil % 51.1 % (47-70); Platelet Count 236 K/mm3 (150-450); RBC Distribution Width CV 14.8 % (11.6-14.6); RBC Distribution Width SD 52.8 fl (35.1-43.9); Red Blood Count 2.48 M/mm3 (4.2-5.4); White Blood Count 5.6 K/mm3 (4.4-11.0)
[2021-08-28 07:11] LABS: Anion Gap 3 (5-15); BUN 19 mg/dL (7-18); BUN/Creat Ratio 30.1 RATIO (10-20); Calcium,Total 8.4 mg/dL (8.5-10.1); Chloride 107 mmol/L (98-107); Creatinine, Serum 0.63 mg/dL (0.55-1.02); EST Glomerular Filtration Rate 104 mL/min (>60); Est Glom Filt Rate - Afr Amer 126 mL/min (>60); Estimated Creatinine Clearance 94.45 ml/min; Glucose 118 mg/dL (74-106); Potassium 4.1 mmol/L (3.5-5.1); Sodium Level 138 mmol/L (136-145)
[2021-08-28 08:17] VITALS: O2SAT 97
[2021-08-28] MEDS: Venlafaxine XR 75 MG Capsule PO (09:06)
[2021-08-28] MEDS: Venlafaxine XR 37.5 MG Capsule PO (09:06)
[2021-08-28] MEDS: levETIRAcetam 500 MG Tablet PO ×2 (09:06→22:35)
[2021-08-28] MEDS: Divalproex (ER) 250 MG Tablet PO ×2 (09:07→22:35)
[2021-08-28] MEDS: clonazePAM 1 MG Tablet PO ×2 (09:13→22:35)
[2021-08-28 09:20] VITALS: PULSE 75
[2021-08-28 09:21] VITALS: BP 106/64; PULSE 75; RESP 16; TEMP 36.7; O2SAT 97
--- NOTE | 2021-08-28 10:04 | PCM.PN.HOSP ---
Subjective Subjective Denies any hematemesis or epistaxis currently now with the humidified oxygen. She does state that she has been noticing darker stools for the last 3 weeks and her stool occult came back positive for blood hemoglobin down to 7.3 today Objective Data Objective Data Vital Signs: Vital Signs Temp Pulse Resp BP Pulse Ox 98.0 F 75 16 106/64 97 08/28/21 09:21 08/28/21 09:21 08/28/21 09:21 08/28/21 09:21 08/28/21 09:21 Oxygen Flow Rate (L/min) 3 Oxygen Delivery Method Nasal Cannula Weight: 265 lb 10.512 oz Body Mass Index (BMI) 41.8 Intake & Output: Intake and Output for Last 24 Hours 08/27/21 08/28/21 08/29/21 03:59 03:59 03:59 Intake Total 3580 / 3580 4620 / 4620 500 / 500 Output Total 650 / 650 Balance 2930 / 2930 4620 / 4620 500 / 500 Lab / Micro Data Result Diagrams: 08/28/21 06:00 08/28/21 06:00 Labs: Laboratory Results - last 24 hr 08/27/21 10:45: Troponin I High Sens 5 08/27/21 10:45: Iron 51, TIBC 283, Iron Saturation 18.0, Ferritin 137 08/28/21 06:00: WBC 5.6, RBC 2.48 L, Hgb 7.3 L, Hct 24.4 L, MCV 98.4, MCH 29.4, MCHC 29.9 L, RDW Std Deviation 52.8 H, RDW Coeff of Immanuel 14.8 H, Plt Count 236, MPV 11.0, Immature Gran % (Auto) 0.700, Neut % (Auto) 51.1, Lymph % (Auto) 34.2, [place] % (Auto) 9.0, Eos % (Auto) 4.3, Baso % (Auto) 0.7, Absolute Neuts (auto) 2.8, Absolute Lymphs (auto) 1.90, Nucleated RBC % 0 08/28/21 06:00: Sodium 138, Potassium 4.1, Chloride 107, Carbon Dioxide 28.0, Anion Gap 3 L, BUN 19 H, Creatinine 0.63, Estim Creat Clear Calc 94.45, Est GFR (MDRD) Af Amer 126, Est GFR (MDRD) Non-Af 104, BUN/Creatinine Ratio 30.1 H, Glucose 118 H, Calcium 8.4 L Micro: Microbiology 08/26/21 01:00 Blood Culture (Wb) - Anticubital Right Blood Culture - Preliminary No growth in 48 hours. 08/26/21 00:50 Blood Culture (Wb) - Anticubital Left Blood Culture - Preliminary No growth in 48 hours. 08/27/21 21:35 Stool Stool Occult Blood (KAELA) - Final Occult Blood Positive 08/26/21 01:00 Urine, Catheterized Urine Culture - Final Presumptive E. coli 08/26/21 00:08 Nasal Secretion SARS-CoV-2 Antigen (Rapid) - Final Physical Exam Narrative Const alert, oriented x3 and no apparent distress General Appearance: cooperative Nutritional Appearance: morbidly obese HEENT normocephalic and moist oral mucous membranes Eyes PERRL, EOMs intact bilaterally and conjunctivae normal Neck supple and no JVD Resp normal respiratory effort, no retractions, no use of accessory muscles and clear to auscultation bilaterally Auscultation: diminished lung sounds; Negative for crackles, rales, rhonchi or wheezes Cardio regular rate, regular rhythm, S1 normal heart sound, S2 normal heart sound and no murmurs GI soft to palpation, non-tender and non-distended; Negative for hepatosplenomegaly Extremity no clubbing, cyanosis or edema Skin no rashes or lesions noted Neuro no focal motor deficits and no sensory deficits noted Psych affect normal Appearance: appropriate Assessment & Plan Assessment/Plan (1) UTI (urinary tract infection): QUALIFIERS: Urinary tract infection type: acute cystitis Hematuria presence: without hematuria Qualified Code(s): N30.00 - Acute cystitis without hematuria (2) LEIGH ANN (acute kidney injury): (3) Pneumonia: QUALIFIERS: Pneumonia type: aspiration pneumonia Aspiration pneumonia type: due to vomit Laterality: bilateral Lung location: lower lobe of lung Qualified Code(s): J69.0 - Pneumonitis due to inhalation of food and vomit (4) Hematemesis: QUALIFIERS: Nausea presence: with nausea Qualified Code(s): K92.0 - Hematemesis (5) Weakness: PLAN: 1. Acute E. coli UTI/possible aspiration pneumonia/LEIGH ANN/generalized weakness/dysphagia ?She is resistant having this be the explanation for her kidney pain or the reason why she is here. ?Continue with Levaquin and Flagyl ?She is on her chronic home O2 ?Remains afebrile without a leukocytosis ?She is on IV fluids with gentle hydration, creatinine has normalized ?States that she has been wheelchair-bound since 2020 after cardiac arrest. Will have PT and OT evaluate her for placement ?Follow-up with speech therapy given the possibility for aspiration ?We will provide her some Valium for her muscle spasms to see if this provides any relief. She is allergic to Toradol 2. Hematemesis/epistaxis/chronic anemia ?Stool occult positive for blood, will consult gastroenterology for scope ?We will discontinue her Xarelto as her PEs were over 5 years ago ?Continue with PPI ?Iron studies are normal 3. STEPHANIE with chronic home O2 ?Encouraged to wear BiPAP at night nasal cannula during the day. We will humidify her oxygen to prevent any epistaxis DVT: SCDs Charges/Coding Visit Charges Inpatient E&M: 94606 Subs Hosp L2
[2021-08-28] MEDS: levoFLOXacin IV 750 MG/150 ML BAG 100 MG IV (10:15)
--- NOTE | 2021-08-28 13:05 | CON.PCM.GI_ITS ---
HPI Consult Data Date of Consult: 08/28/21 HPI Narrative HPI Narrative: LUIS A CUMMINGS, is a 55 F who presented to the ED after waking up with blood covered sheets and all over her face. She has a past medical history of CAD status post [place], COPD, morbid obesity, STEPHANIE, breast cancer, DVT and PE on Xarelto. She reported she woke up several hours before presentation and she realized that she had vomited blood. Also she reports epistaxis. Further, she choked on a piece of steak but was able to bring it out. She has had a dry cough for the past 2 weeks. At baseline she is on home oxygen of 3 L. She reports some difficulty in breathing above her baseline. She had a chest x-ray in the ED that did not show any abnormalities. Her hemoglobin was noted to be 7.7 in the emergency room and at 7.3 today. I was consulted to evaluate possible hematemesis and acute on chronic anemia anemia. [facility] Medical History (Updated 08/28/21 @ 13:[address] Moss Friend, DO) Abnormal cardiac enzyme level Acute and chronic respiratory failure Acute respiratory failure with hypoxia and hypercapnia LEIGH ANN (acute kidney injury) Anemia Anemia Anxiety and depression Back pain Bilateral peripheral pulmonary emboli BiPAP (biphasic positive airway pressure) dependence Breast infection Cancer Cardiac arrest Cardiology follow-up encounter Cardiopulmonary arrest with successful resuscitation Chest pain Chronic anemia Chronic narcotic dependence Compression fracture of T5 vertebra Compression fracture of T6 vertebra Congestive heart failure COPD (chronic obstructive pulmonary disease) COPD exacerbation Coronary artery disease CPAP (continuous positive airway pressure) dependence Debility Dependence on continuous supplemental oxygen Depression Diastolic dysfunction DVT (deep vein thrombosis) in DVT (deep venous thrombosis) Essential hypertension Fall Former smoker GERD (gastroesophageal reflux disease) HLD (hyperlipidemia) Hx of cardiovascular stress test Hx of echocardiogram Hypertension Hypothyroidism Morbid obesity MSSA (methicillin susceptible Staphylococcus aureus) pneumonia Myocardial infarct Obesity On home oxygen therapy STEPHANIE (obstructive sleep apnea) Pulmonary embolism Restrictive lung disease Right rib fracture Seizure disorder Seizures Sleep apnea SOB (shortness of breath) Syncope and collapse TIA (transient ischemic attack) TIA (transient ischemic attack) Wears dentures Wears glasses Home Medications albuterol sulfate 90 mcg/actuation aerosol inhaler 2 puff INHALATION Q4H PRN g 08/01/17 [History Last Taken 03/03/18] omeprazole 40 mg capsule,delayed release 40 mg PO DAILY 08/01/17 [History Last Taken 08/25/21] rivaroxaban 20 mg tablet 20 mg PO DAILY #90 tab 03/26/19 [Rx Last Taken 08/25/21] venlafaxine 75 mg capsule,extended release 24 hr 75 mg PO DAILY 03/02/21 [History Last Taken 08/25/21] Dulera 2 puff INHALATION Q12H PRN 03/15/21 [History Last Taken Unknown] venlafaxine 37.5 mg PO DAILY 04/25/21 [History Last Taken 08/25/21] clonazepam 1 mg PO BID 05/09/21 [History Last Taken 08/25/21] furosemide [Lasix] 20 mg PO DAILY #30 tab 05/11/21 [Rx Last Taken 08/25/21] losartan 25 mg PO DAILY #30 tab 05/11/21 [Rx Last Taken 08/25/21] food supplemt, lactose-reduced 118 ml PO DAILY ml 05/24/21 [History Last Taken 08/25/21] metoprolol succinate 100 mg tablet,extended release 24 hr 100 mg PO DAILY tab 05/24/21 [History Last Taken 08/25/21] divalproex 250 mg tablet,extended release 24 hr 250 mg PO BID #60 tab 05/30/21 [Rx Last Taken 08/25/21] levetiracetam 500 mg tablet 500 mg PO BID #60 tab 05/30/21 [Rx Last Taken 0 08/25/21] atorvastatin 80 mg PO QHS 08/26/21 [History Last Taken 08/25/21] mirtazapine 7.5 mg PO QHS 08/26/21 [History Last Taken Unknown] spironolactone 50 mg PO DAILY 08/26/21 [History Last Taken 08/25/21] Allergy/AdvReac Type Severity Reaction Status Date / Time aspirin Allergy Hives Verified 08/25/21 23:55 dicyclomine Allergy Itching Verified 08/26/21 02:39 ibuprofen Allergy Hives Verified 08/25/21 23:55 ketorolac tromethamine Allergy Angioedema Verified 08/25/21 23:55 [From Toradol] meperidine HCl [From Demerol] Allergy seizures Verified 08/25/21 23:55 nitroglycerin Allergy Angioedema Verified 08/25/21 23:55 nut - unspecified Allergy Hives Verified 08/25/21 23:55 Penicillins [PCN] Allergy Hives Verified 08/25/21 23:55 tramadol HCl [From Ultram] Allergy Angioedema Verified 08/25/21 23:55 Family History Brother Myocardial infarction Asthma Mental disorder Psychiatric care Suicide attempt Father Colon cancer Brother Mental disorder Aunt Parkinson disease Sister Breast cancer Cervical cancer Ovarian cancer Sister Cervical cancer Ovarian cancer Mother Cancer History of blood clots Hypertension Surgical History History of appendectomy History of cholecystectomy History of cholecystectomy History of hysterectomy History of left breast biopsy History of left heart catheterization (LHC) (~04/22/21) Hx of appendectomy S/P lumpectomy, left breast Social History household members: none Smoking Status: Former smoker quit date: 01/21/16 pack-years: 32 second hand exposure: Yes alcohol intake: never substance use type: does not use ROS Gastrointestinal Gastrointestinal: Reports hematemesis and melena Lab / Micro Data Result Diagrams: 08/28/21 06:00 08/28/21 06:00 Labs: Laboratory Results - last 24 hr 08/28/21 06:00: WBC 5.6, RBC 2.48 L, Hgb 7.3 L, Hct 24.4 L, MCV 98.4, MCH 29.4, MCHC 29.9 L, RDW Std Deviation 52.8 H, RDW Coeff of Immanuel 14.8 H, Plt Count 236, MPV 11.0, Immature Gran % (Auto) 0.700, Neut % (Auto) 51.1, Lymph % (Auto) 34.2, [place] % (Auto) 9.0, Eos % (Auto) 4.3, Baso % (Auto) 0.7, Absolute Neuts (auto) 2.8, Absolute Lymphs (auto) 1.90, Nucleated RBC % 0 08/28/21 06:00: Sodium 138, Potassium 4.1, Chloride 107, Carbon Dioxide 28.0, Anion Gap 3 L, BUN 19 H, Creatinine 0.63, Estim Creat Clear Calc 94.45, Est GFR (MDRD) Af Amer 126, Est GFR (MDRD) Non-Af 104, BUN/Creatinine Ratio 30.1 H, Glucose 118 H, Calcium 8.4 L Micro: Microbiology 08/26/21 01:00 Blood Culture (Wb) - Anticubital Right Blood Culture - Preli minary No growth in 48 hours. 08/26/21 00:50 Blood Culture (Wb) - Anticubital Left Blood Culture - Preliminary No growth in 48 hours. 08/27/21 21:35 Stool Stool Occult Blood (KAELA) - Final Occult Blood Positive 08/26/21 01:00 Urine, Catheterized Urine Culture - Final Presumptive E. coli Assessment & Plan Assessment/Plan (1) Hematemesis: QUALIFIERS: Nausea presence: with nausea Qualified Code(s): K92.0 - Hematemesis PLAN: The differential diagnosis for hematemesis does include a Stephania-W eiss tear, peptic ulcer disease, AVM, portal gastropathy, erosive esophagitis. She should undergo an upper endoscopy evaluate her upper GI tract. She was explained alternatives, risk, benefits including not withstanding bleeding, infection, sepsis, perforation, need for emergent surgery and . She have an ASA of 3. (2) Anemia: PLAN: For a work-up for chronic anemia she should have a colonoscopy and possible capsule endoscopy due to the fact that she will need to be on Xarelto possibly for the rest of her life due to the history of PE as per the patient. Further recommendation to follow after she has upper endoscopy. Charges/Coding Visit Charges Inpatient E&M: 55818 Init Hosp L3
[2021-08-28] MEDS: Acetaminophen 325 MG Tablet 650 MG PO ×2 (14:39→22:35)
[2021-08-28 15:30] VITALS: BP 100/78; PULSE 81; RESP 16; TEMP 36.9; O2SAT 96
[2021-08-28 22:27] VITALS: BP 105/73; PULSE 83; RESP 18; TEMP 36.9; O2SAT 100
[2021-08-28] MEDS: Atorvastatin Calcium 80 MG Tablet PO (22:35)
[2021-08-29] VITALS (14 sets, daily range): BP systolic 100–117; BP diastolic 48–82; PULSE 65–85; RESP 14–18; TEMP 36–37.2; O2SAT 95–99; BMI 41.7
[2021-08-29] MEDS: metroNIDAZOLE 500 MG/100 ML BAG 100 MG IV ×3 (05:25→22:33)
[2021-08-29 06:35] LABS: Absolute Lymphocyte Count 2.13 X10^3/uL (0.83-4.51); Absolute Neutrophil Count 2.8 X10^3/uL (2.0-7.7); Basophil# 0.04 X10^3/uL; Basophil% 0.7 % (0-1); Eosinophil# 0.19 X10^3/uL; Eosinophils% 3.4 % (0-5); Hematocrit 23.5 % (37-47); Lymphocyte # 2.13 X10^3/ul (0.83-4.51); Lymphocyte % 38.2 % (19-41); Mean Corp Hgb Conc 29.8 g/dL (32-36); Mean Corpuscular Volume 97.5 fL (81-99); Mean Platelet Vol. 11.1 fl (6.2-12.0); Monocyte# 0.39 X10^3/uL; NRBC Flagged by Analyzer 0 % (0-5); Neutrophil # 2.77 X10^3/uL (2.7-7.7); Neutrophil % 49.8 % (47-70); Platelet Count 253 K/mm3 (150-450); RBC Distribution Width CV 14.6 % (11.6-14.6); RBC Distribution Width SD 52.3 fl (35.1-43.9); Red Blood Count 2.41 M/mm3 (4.2-5.4); White Blood Count 5.6 K/mm3 (4.4-11.0)
[2021-08-29] MEDS: 0.9% Normal Saline 1,000 ML 75 ML IV (08:02)
[2021-08-29] MEDS: Divalproex (ER) 250 MG Tablet PO ×2 (08:11→22:35)
[2021-08-29] MEDS: Venlafaxine XR 37.5 MG Capsule PO (08:12)
[2021-08-29] MEDS: Venlafaxine XR 75 MG Capsule PO (08:12)
[2021-08-29] MEDS: levETIRAcetam 500 MG Tablet PO ×2 (08:12→22:34)
[2021-08-29] MEDS: Metoprolol(XL)Succ 100 MG Tablet PO (08:12)
[2021-08-29] MEDS: Acetaminophen 325 MG Tablet 650 MG PO ×2 (08:15→15:37)
[2021-08-29] MEDS: clonazePAM 1 MG Tablet PO ×2 (08:15→22:33)
--- NOTE | 2021-08-29 08:20 | PN.HOSP_ITS ---
Subjective Subjective On lower side 107/76, 100/63. Patient feeling dizzy and lightheaded when she stands up. Hemoglobin is 7.0. Objective Data Objective Data Vital Signs: Vital Signs Temp Pulse Resp BP Pulse Ox 97.9 F 85 18 105/66 95 08/29/21 04:03 08/29/21 04:03 08/29/21 04:03 08/29/21 04:03 08/29/21 04:03 Oxygen Flow Rate (L/min) 3 Oxygen Delivery Method Nasal Cannula Weight: 258 lb 9.636 oz Body Mass Index (BMI) 41.8 Intake & Output: Intake and Output for Last 24 Hours 08/27/21 08/28/21 08/29/21 23:59 23:59 23:59 Intake Total 3420 / 3420 3360.00 / 3360.00 330 / 330 Balance 3420 / 3420 3360.00 / 3360.00 330 / 330 Lab / Micro Data Result Diagrams: 08/29/21 05:55 08/28/21 06:00 Labs: Laboratory Results - last 24 hr 08/29/21 05:55: WBC 5.6, RBC 2.41 L, Hgb 7.0 L, Hct 23.5 L, MCV 97.5, MCH 29.0, MCHC 29.8 L, RDW Std Deviation 52.3 H, RDW Coeff of Immanuel 14.6, Plt Count 253, MPV 11.1, Immature Gran % (Auto) 0.900, Neut % (Auto) 49.8, Lymph % (Auto) 38.2, [place] % (Auto) 7.0, Eos % (Auto) 3.4, Baso % (Auto) 0.7, Absolute Neuts (auto) 2.8, Absolute Lymphs (auto) 2.13, Nucleated RBC % 0 Micro: Microbiology 08/26/21 01:00 Blood Culture (Wb) - Anticubital Right Blood Culture - Preliminary No growth in 48 hours. 08/26/21 00:50 Blood Culture (Wb) - Anticubital Left Blood Culture - Preliminary No growth in 48 hours. 08/27/21 21:35 Stool Stool Occult Blood (KAELA) - Final Occult Blood Positive 08/26/21 01:00 Urine, Catheterized Urine Culture - Final Presumptive E. coli 08/26/21 00:08 Nasal Secretion SARS-CoV-2 Antigen (Rapid) - Final Physical Exam Narrative Patient had burning micturition which resolved. Patient was admitted with an episode of vomiting blood and pool of blood in the bed. General: Alert, Oriented x3, Cooperative HEENT: Atraumatic, PERRLA, EOMI, Normocephalic Oral: No Gingival or Mucosal Lesions/ Ulcerations Neck: Supple, No JVD, Negative Carotid Bruits Lungs: Air entry diminished in bilateral lung bases. No crepitation/rhonchi Cardiovascular: Regular rate, Regular Rhythm, Normal S1, Normal S2, No murmurs Abdomen: Bowel Sounds Present, Soft, Non Tender, Non-Distended : No renal angle tenderness. No suprapubic tenderness. Extremities: edema, Capillary Refill Less than 3 Seconds Skin: No rashes, No breakdown Musculoskeletal: No Tenderness to Palpation of Joints or Extremities Neurological: Cranial nerves II-XII grossly intact, DTR 2+/4 and Symmetrical, Neuro grossly intact Psych/Mental Status: Flat affect Assessment & Plan Assessment/Plan (1) UTI (urinary tract infection): QUALIFIERS: Hematuria presence: without hematuria Urinary tract infection type: acute cystitis Qualified Code(s): N30.00 - Acute cystitis without hematuria (2) LEIGH ANN (acute kidney injury): (3) Pneumonia: QUALIFIERS: Aspiration pneumonia type: due to vomit Laterality: bilateral Lung location: lower lobe of lung Pneumonia type: aspiration pneumonia Qualified Code(s): J69.0 - Pneumonitis due to inhalation of food and vomit (4) Hematemesis: QUALIFIERS: Nausea presence: with nausea Qualified Code(s): K92.0 - Hematemesis (5) Weakness: PLAN: 1. Infectious disease: Acute E. coli UTI/cystitis, possible aspiration pneumonia: Burning micturition got resolved. Continue Levaquin and Flagyl as patient is suspicion of aspiration pneumonia also. Urine culture shows more than 100,000 colonies of E. coli, ESBL negative sensitive to Levaquin. 2. Chronic hypoxic respiratory failure with history of PE 5 years ago: Patient on 3 L of oxygen. Xarelto discontinued after she was found hematemesis and severe anemia 3. Acute blood loss anemia with chronic anemia: H&H 7.0/23. IV iron ordered. Iron studies are normal. On PPI. Patient had EGD and seen by physical therapist assistant. A single nonbleeding angiodysplastic lesion in the stomach, treated with argon laser coagulation. Normal second portion of duodenum. Mild reflux esophagitis. 4. LEIGH ANN: Resolved. Patient admitted with creatinine 2.21. Currently 0.63. No decrease in urine output. Treated with IV fluid. 4. Obstructive sleep apnea: Patient encouraged to wear BiPAP. 5 multiple other chronic comorbidities include chronic nonspecific unclear epilepsy disorder, anxiety and depression: Patient is on Keppra and continued. DVT: SCDs. Pharmacological prophylaxis contraindicated Charges/Coding Visit Charges Inpatient E&M: 99123 Subs Hosp L2
[2021-08-29] MEDS: levoFLOXacin IV 750 MG/150 ML BAG 100 MG IV (09:26)
--- NOTE | 2021-08-29 11:04 | NURSING ---
pt off unit at this time via bed for endoscopy
--- NOTE | 2021-08-29 12:12 | OP.EGD_ITS ---
Patient Name: Felisha Perrin Procedure Date: 08/29/2021 10:45 AM Date of : 1965 Age: 55 Procedure: Upper GI endoscopy Indications: Iron deficiency anemia, Coffee-ground emesis Providers: Ajay Millard DO Medicines: See the Anesthesia note for documentation of the administered medications Patient Profile: This is a 55 year old female. Refer to note in patient chart for documentation of history and physical. Patient has symptoms. She is status post colonoscopy for polyp removal. Complications: No immediate complications. Procedure: Pre-Anesthesia Assessment: - Prior to the procedure, a History and Physical was performed, and patient medications and allergies were reviewed. The patient is competent. The risks and benefits of the procedure and the sedation options and risks were discussed with the patient. All questions were answered and informed consent was obtained. Patient identification and proposed procedure were verified by the physician in the pre-procedure area. Mental Status Examination: alert and oriented. Airway Examination: normal oropharyngeal airway and neck mobility. Respiratory Examination: clear to auscultation. CV Examination: normal. Prophylactic Antibiotics: The patient does not require prophylactic antibiotics. Prior Anticoagulants: The patient has taken no previous anticoagulant or antiplatelet agents. ASA Grade Assessment: II - A patient with mild systemic disease. After reviewing the risks and benefits, the patient was deemed in satisfactory condition to undergo the procedure. The anesthesia plan was to use moderate sedation / analgesia (conscious sedation). Immediately prior to administration of medications, the patient was re-assessed for adequacy to receive sedatives. The heart rate, respiratory rate, oxygen saturations, blood pressure, adequacy of pulmonary ventilation, and response to care were monitored throughout the procedure. The physical status of the patient was re-assessed after the procedure. After obtaining informed consent, the endoscope was passed under direct vision. Throughout the procedure, the patient's blood pressure, pulse, and oxygen saturations were monitored continuously. The gastroscope was introduced through the mouth, and advanced to the second part of duodenum. The upper GI endoscopy was accomplished without difficulty. The patient tolerated the procedure well. Moderate Sedation: Moderate (conscious) sedation was administered by the endoscopy nurse and supervised by the endoscopist. The following parameters were monitored: oxygen saturation, heart rate, blood pressure, and response to care. Total physician intraservice time was 15 minutes. Scope In: 12:02:52 PM Scope Out: 12:07:04 PM Total Procedure Duration Time 0 hours 4 minutes 12 seconds Findings: LA Grade A (one or more mucosal breaks less than 5 mm, not extending between tops of 2 mucosal folds) esophagitis with no bleeding was found 34 to 35 cm from the incisors. A single 5 mm no bleeding angiodysplastic lesion was found in the stomach. Coagulation for bleeding prevention using argon plasma at 0.3 liters/minute and 20 muñoz was successful. Estimated blood loss was minimal. The second portion of the duodenum was normal. Impression: - LA Grade A reflux esophagitis. - A single non-bleeding angiodysplastic lesion in the stomach. Treated with argon plasma coagulation (APC). - Normal second portion of the duodenum. - No specimens collected. Recommendation: - Discharge patient to home. - Clear liquid diet today. - Continue present medications. Procedure Code(s): --- Professional --- 11825, Esophagogastroduodenoscopy, flexible, transoral; with control of bleeding, any method 42769, 59, Moderate sedation services provided by the same physician or other qualified health care tech performing the diagnostic or therapeutic service that the sedation supports, requiring the presence of an independent trained observer to assist in the monitoring of the patient's level of consciousness and physiological status; initial 15 minutes of intraservice time, patient age 5 years or older CPT copyright 2017 [employer]. All rights reserved. The codes documented in this report are preliminary and upon logistics assistant review may be revised to meet current compliance requirements. Ajay Millard DO 08/29/2021 12:11:32 PM This report has been signed electronically. Number of Addenda: 1 Note Initiated On: 08/29/2021 10:45 AM Addendum Number: 1 Addendum Date: 04/10/2022 6:54:10 AM MAC was used for sedation during this procedure. Ajay Millard DO 04/10/2022 6:54:14 AM This report has been signed electronically.
--- NOTE | 2021-08-29 12:13 | OP.CCLET_ITS ---
04/10/2022 [address] [place] [address] Re : Upper GI endoscopy procedure for Felisha Perrin Dear Dr. Montanez This procedure was performed on Sunday, August 29, 2021. My impressions and recommendations are as follows: Impressions : - LA Grade A reflux esophagitis. - A single non-bleeding angiodysplastic lesion in the stomach. Treated with argon plasma coagulation (APC). - Normal second portion of the duodenum. - No specimens collected. Recommendations : - Discharge patient to home. - Clear liquid diet today. - Continue present medications. My findings are described in the full procedure note, which is enclosed. If I can be of further assistance, please feel free to contact me at . Sincerely, Ajay Friend, 08/29/2021 12:11:32 PM This report has been signed electronically.
[2021-08-29] MEDS: Bisacodyl 5 MG Tablet 20 MG PO (13:20)
[2021-08-29] MEDS: Sodium Chloride 0.65% 1 SPRAY SPRAY.BTL 2 SPRAY NASAL (13:22)
--- NOTE | 2021-08-29 15:10 | NURSING ---
Talked with Lima in ER after confirmed contacts on demographics with patient, informed Lima no info to anyone other than listed on demographics at pt's request. pt states she has been texting her son's ex girlfriend Mellisa but requests no information be given to her. Lima CASSIDY RN informed.
[2021-08-29] MEDS: Electrolyte Solution/Peg's 4000 ML 3000 ML PO (15:28)
[2021-08-29] MEDS: Ondansetron 4 MG/2 ML Vial IV (17:49)
[2021-08-29] MEDS: 0.9% Saline Lock 10 ML Syringe IV (17:52)
[2021-08-29] MEDS: Atorvastatin Calcium 80 MG Tablet PO (22:34)
[2021-08-30] VITALS (19 sets, daily range): BP systolic 92–120; BP diastolic 54–86; PULSE 68–97; RESP 14–18; TEMP 36.4–37.1; O2SAT 94–100
[2021-08-30] MEDS: 0.9% Normal Saline 1,000 ML 75 ML IV ×2 (03:11→16:50)
[2021-08-30] MEDS: Ondansetron 4 MG/2 ML Vial IV (03:15)
[2021-08-30 05:00] LABS: Absolute Lymphocyte Count 1.84 X10^3/uL (0.83-4.51); Absolute Neutrophil Count 5.4 X10^3/uL (2.0-7.7); Basophil# 0.03 X10^3/uL; Basophil% 0.4 % (0-1); Eosinophil# 0.16 X10^3/uL; Hematocrit 21.8 % (37-47); Hemoglobin 6.7 g/dL (12.0-15.0); Lymphocyte # 1.84 X10^3/ul (0.83-4.51); Lymphocyte % 22.5 % (19-41); Mean Corp Hgb Conc 30.7 g/dL (32-36); Mean Corpuscular Hgb 29.4 pg (27.0-32.0); Mean Corpuscular Volume 95.6 fL (81-99); Mean Platelet Vol. 10.7 fl (6.2-12.0); Monocyte# 0.73 X10^3/uL; Monocyte% 8.9 % (0-10); NRBC Flagged by Analyzer 0 % (0-5); Neutrophil # 5.38 X10^3/uL (2.7-7.7); Neutrophil % 65.6 % (47-70); Platelet Count 252 K/mm3 (150-450); RBC Distribution Width CV 14.8 % (11.6-14.6); RBC Distribution Width SD 51.3 fl (35.1-43.9); Red Blood Count 2.28 M/mm3 (4.2-5.4); White Blood Count 8.2 K/mm3 (4.4-11.0)
[2021-08-30 05:21] LABS: Anion Gap 5 (5-15); BUN 7 mg/dL (7-18); BUN/Creat Ratio 11.3 RATIO (10-20); Calcium,Total 8.2 mg/dL (8.5-10.1); Chloride 108 mmol/L (98-107); Creatinine, Serum 0.62 mg/dL (0.55-1.02); EST Glomerular Filtration Rate 106 mL/min (>60); Est Glom Filt Rate - Afr Amer 128 mL/min (>60); Estimated Creatinine Clearance 95.98 ml/min; Glucose 92 mg/dL (74-106); Potassium 3.6 mmol/L (3.5-5.1); Sodium Level 142 mmol/L (136-145)
[2021-08-30] MEDS: metroNIDAZOLE 500 MG/100 ML BAG 100 MG IV ×2 (05:40→13:30)
[2021-08-30] MEDS: levETIRAcetam 500 MG Tablet PO ×2 (11:30→21:22)
[2021-08-30] MEDS: Metoprolol(XL)Succ 100 MG Tablet PO (11:30)
[2021-08-30] MEDS: Divalproex (ER) 250 MG Tablet PO ×2 (11:30→21:22)
[2021-08-30] MEDS: levoFLOXacin IV 750 MG/150 ML BAG 100 MG IV (11:54)
[2021-08-30] MEDS: 0.9% Saline Lock 10 ML Syringe IV ×3 (13:31→20:33)
--- NOTE | 2021-08-30 14:43 | NURSING ---
pt off floor for colonoscopy
--- NOTE | 2021-08-30 16:04 | PN.HOSP_ITS ---
Subjective Subjective Hemoglobin dropped further to 6.7 g today even after 1 unit of PRBC transfusion. Orthostatic blood pressure showed drop in blood pressure from 115/71 lying to 92/61 on standing. Heart rate went up from 85-97, not significantly Objective Data Objective Data Vital Signs: Vital Signs Temp Pulse Resp BP Pulse Ox 98.8 F 76 18 98/54 L 97 08/30/21 14:20 08/30/21 14:20 08/30/21 14:20 08/30/21 14:20 08/30/21 14:20 Oxygen Flow Rate (L/min) 3 Oxygen Delivery Method Nasal Cannula Weight: 257 lb 11.526 oz Body Mass Index (BMI) 41.7 Intake & Output: Intake and Output for Last 24 Hours 08/28/21 08/29/21 08/30/21 23:59 23:59 23:59 Intake Total 3360.00 / 3360.00 2936.25 / 2936.25 5293.75 / 5293.75 Balance 3360.00 / 3360.00 2936.25 / 2936.25 5293.75 / 5293.75 Lab / Micro Data Result Diagrams: 08/30/21 04:39 08/30/21 04:39 Labs: Laboratory Results - last 24 hr 08/30/21 04:39: WBC 8.2, RBC 2.28 L, Hgb 6.7 L, Hct 21.8 L, MCV 95.6, MCH 29.4, MCHC 30.7 L, RDW Std Deviation 51.3 H, RDW Coeff of Immanuel 14.8 H, Plt Count 252, MPV 10.7, Immature Gran % (Auto) 0.600, Neut % (Auto) 65.6, Lymph % (Auto) 22.5, Wilkin % (Auto) 8.9, Eos % (Auto) 2.0, Baso % (Auto) 0.4, Absolute Neuts (auto) 5.4, Absolute Lymphs (auto) 1.84, Nucleated RBC % 0 08/30/21 04:39: Sodium 142, Potassium 3.6, Chloride 108 H, Carbon Dioxide 29.0, Anion Gap 5, BUN 7, Creatinine 0.62, Estim Creat Clear Calc 95.98, Est GFR (MDRD) Af Amer 128, Est GFR (MDRD) Non-Af 106, BUN/Creatinine Ratio 11.3, Glucose 92, Calcium 8.2 L 08/30/21 06:46: Blood Type A POSITIVE, Antibody Screen NEGATIVE, Crossmatch See Detail Micro: Microbiology 08/26/21 01:00 Blood Culture (Wb) - Anticubital Right Blood Culture - Preliminary No growth in 48 hours. 08/26/21 00:50 Blood Culture (Wb) - Anticubital Left Blood Culture - Preliminary No growth in 48 hours. 08/27/21 21:35 Stool Stool Occult Blood (KAELA) - Final Occult Blood Positive 08/26/21 01:00 Urine, Catheterized Urine Culture - Final Presumptive E. coli 08/26/21 00:08 Nasal Secretion SARS-CoV-2 Antigen (Rapid) - Final Physical Exam Narrative Patient had burning micturition which resolved. Patient does not have abdominal pain but on exam she is tender on the right side. She does not know the color of her stool. General: Alert, Oriented x3, Cooperative HEENT: Atraumatic, PERRLA, EOMI, Normocephalic Oral: No Gingival or Mucosal Lesions/ Ulcerations Neck: Supple, No JVD, Negative Carotid Bruits Lungs: Air entry diminished in bilateral lung bases. No crepitation/rhonchi Cardiovascular: Regular rate, Regular Rhythm, Normal S1, Normal S2, No murmurs Abdomen: Bowel Sounds Present, Soft, mild right lower quadrant tenderness but I think is more anxiety related. No rebound tenderness. : No renal angle tenderness. No suprapubic tenderness. Extremities: edema, Capillary Refill Less than 3 Seconds Skin: No rashes, No breakdown Musculoskeletal: No Tenderness to Palpation of Joints or Extremities Neurological: Cranial nerves II-XII grossly intact, DTR 2+/4 and Symmetrical, Neuro grossly intact Psych/Mental Status: Flat affect Assessment & Plan Assessment/Plan (1) UTI (urinary tract infection): QUALIFIERS: Urinary tract infection type: acute cystitis Hematur ia presence: without hematuria Qualified Code(s): N30.00 - Acute cystitis without hematuria (2) LEIGH ANN (acute kidney injury): (3) Pneumonia: QUALIFIERS: Pneumonia type: aspiration pneumonia Aspiration pneumonia type: due to vomit Laterality: bilateral Lung location: lower lobe of lung Qualified Code(s): J69.0 - Pneumonitis due to inhalation of food and vomit (4) Hematemesis: QUALIFIERS: Nausea presence: with nausea Qualified Code(s): K92.0 - Hematemesis (5) Weakness: PLAN: 1. Infectious disease: Acute E. coli UTI/cystitis, possible aspiration pneumonia: Burning micturition got resolved. Continue Levaquin and Flagyl as patient is suspicion of aspiration pneumonia also. Urine culture shows more than 100,000 colonies of E. coli, ESBL negative sensitive to Levaquin. 08/30 patient had 5 days of Levaquin and Flagyl did not had any fever or chills. Patient completed antibiotic antibiotic discontinued patient also having loose bowel movement. Lactobacillus is noted. 2. Chronic hypoxic respiratory failure with history of PE 5 years ago: Patient on 3 L of oxygen. Xarelto discontinued after she was found hematemesis and severe anemia 3. Acute blood loss anemia with chronic anemia: H&H 7.0/. IV iron ordered. Iron studies are normal. On PPI. 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 A single nonbleeding angiodysplastic lesion in the stomach, treated with argon laser coagulation. Normal second portion of duodenum. Mild reflux esophagitis. 08/30: Hemoglobin further dropped to 6.7. 1 unit of PRBC transfusion ordered. Patient scheduled for colonoscopy today. Having loose bowel movement probably due to colon prep. 4. LEIGH ANN: Resolved. Patient admitted with creatinine 2.21. Currently 0.63. No decrease in urine output. Treated with IV fluid. 4. Obstructive sleep apnea: Patient encouraged to wear BiPAP. 5 multiple other chronic comorbidities include chronic nonspecific unclear epilepsy disorder, anxiety and depression: Patient is on Keppra and continued. DVT: SCDs. Pharmacological prophylaxis contraindicated Charges/Coding Visit Charges Inpatient E&M: 80889 Subs Hosp L2
--- NOTE | 2021-08-30 16:41 | OP.COLON_ITS ---
Patient Name: Felisha Perrin Procedure Date: 08/30/2021 3:59 PM Date of : 1965 Age: 55 Procedure: Colonoscopy Indications: Iron deficiency anemia Providers: Ajay Millard DO Medicines: See the Anesthesia note for documentation of the administered medications Patient Profile: This is a 55 year old female. Refer to note in patient chart for documentation of history and physical. Last Colonoscopy: date unknown. Unable to locate last colonoscopy report. Complications: No immediate complications. Procedure: Pre-Anesthesia Assessment: - Prior to the procedure, a History and Physical was performed, and patient medications and allergies were reviewed. The patient is competent. The risks and benefits of the procedure and the sedation options and risks were discussed with the patient. All questions were answered and informed consent was obtained. Patient identification and proposed procedure were verified by the physician in the pre-procedure area. Mental Status Examination: alert and oriented. Airway Examination: normal oropharyngeal airway and neck mobility. Respiratory Examination: clear to auscultation. CV Examination: normal. Prophylactic Antibiotics: The patient does not require prophylactic antibiotics. Prior Anticoagulants: The patient has taken no previous anticoagulant or antiplatelet agents. ASA Grade Assessment: II - A patient with mild systemic disease. After reviewing the risks and benefits, the patient was deemed in satisfactory condition to undergo the procedure. The anesthesia plan was to use moderate sedation / analgesia (conscious sedation). Immediately prior to administration of medications, the patient was re-assessed for adequacy to receive sedatives. The heart rate, respiratory rate, oxygen saturations, blood pressure, adequacy of pulmonary ventilation, and response to care were monitored throughout the procedure. The physical status of the patient was re-assessed after the procedure. After I obtained informed consent, the scope was passed under direct vision. Throughout the procedure, the patient's blood pressure, pulse, and oxygen saturations were monitored continuously. The Colonoscope was introduced through the anus and advanced to 10 cm into the ileum. The terminal ileum, ileocecal valve, appendiceal orifice, and rectum were photographed. Moderate Sedation: Moderate (conscious) sedation was administered by the endoscopy nurse and supervised by the endoscopist. The following parameters were monitored: oxygen saturation, heart rate, blood pressure, and response to care. Total physician intraservice time was 15 minutes. Scope In: 4:17:50 PM Scope Withdrawal Time 0 hours 11 minutes 32 seconds Scope Out: 4:34:00 PM Total Procedure Duration Time 0 hours 16 minutes 10 seconds Findings: The perianal and digital rectal examinations were normal. A few small-mouthed diverticula were found in the sigmoid colon. There was no evidence of diverticular bleeding. The terminal ileum appeared normal. Impression: - Mild diverticulosis in the sigmoid colon. There was no evidence of diverticular bleeding. - The examined portion of the ileum was normal. - No specimens collected. Recommendation: - Discharge patient to home. - Resume previous diet. - Continue present medications. - Repeat colonoscopy in 5 years for screening purposes. - Return to GI office. - Follow-up in the clinic for a capsule endoscopy to evaluate the rest of the small intestines. Procedure Code(s): --- Professional --- 69334, Colonoscopy, flexible; diagnostic, including collection of specimen(s) by brushing or washing, when performed (separate procedure) 54941, 59, Moderate sedation services provided by the same physician or other qualified health child caregiver private home performing the diagnostic or therapeutic service that the sedation supports, requiring the presence of an independent trained observer to assist in the monitoring of the patient's level of consciousness and physiological status; initial 15 minutes of intraservice time, patient age 5 years or older CPT copyright 2017 [employer]. All rights reserved. The codes documented in this report are preliminary and upon mate first review may be revised to meet current compliance requirements. Ajay Millard DO 08/30/2021 4:41:20 PM This report has been signed electronically. Number of Addenda: 1 Note Initiated On: 08/30/2021 3:59 PM Addendum Number: 1 Addendum Date: 04/10/2022 6:52:16 AM MAC was used for sedation during this procedure. Ajay Millard DO 04/10/2022 6:52:20 AM This report has been signed electronically.
--- NOTE | 2021-08-30 16:42 | OP.CCLET_ITS ---
04/10/2022 Alvarez Montanez [address] [place] [address] Re : Colonoscopy procedure for Felisha Perrin Dear Dr. Montanez This procedure was performed on Monday, August 30, 2021. My impressions and recommendations are as follows: Impressions : - Mild diverticulosis in the sigmoid colon. There was no evidence of diverticular bleeding. - The examined portion of the ileum was normal. - No specimens collected. Recommendations : - Discharge patient to home. - Resume previous diet. - Continue present medications. - Repeat colonoscopy in 5 years for screening purposes. - Return to GI office. - Follow-up in the clinic for a capsule endoscopy to evaluate the rest of the small intestines. My findings are described in the full procedure note, which is enclosed. If I can be of further assistance, please feel free to contact me at . Sincerely, Ajay Friend, 08/30/2021 4:41:20 PM This report has been signed electronically.
[2021-08-30] MEDS: clonazePAM 1 MG Tablet PO (21:20)
[2021-08-30] MEDS: Atorvastatin Calcium 80 MG Tablet PO (21:21)
[2021-08-30] MEDS: MELATONIN 3 MG TABLET PO (21:21)
[2021-08-31 03:14] VITALS: BP 110/74; PULSE 72; RESP 16; TEMP 36.9; O2SAT 100
[2021-08-31] MEDS: 0.9% Normal Saline 1,000 ML 75 ML IV (03:19)
[2021-08-31 04:56] LABS: Absolute Lymphocyte Count 2.01 X10^3/uL (0.83-4.51); Absolute Neutrophil Count 3.5 X10^3/uL (2.0-7.7); Basophil# 0.04 X10^3/uL; Basophil% 0.6 % (0-1); Eosinophil# 0.19 X10^3/uL; Hemoglobin 7.8 g/dL (12.0-15.0); Lymphocyte # 2.01 X10^3/ul (0.83-4.51); Lymphocyte % 31.2 % (19-41); Mean Corp Hgb Conc 31.2 g/dL (32-36); Mean Corpuscular Hgb 30.1 pg (27.0-32.0); Mean Corpuscular Volume 96.5 fL (81-99); Mean Platelet Vol. 10.9 fl (6.2-12.0); Monocyte% 9.3 % (0-10); NRBC Flagged by Analyzer 0.5 % (0-5); Neutrophil # 3.52 X10^3/uL (2.7-7.7); Neutrophil % 54.7 % (47-70); Platelet Count 257 K/mm3 (150-450); RBC Distribution Width CV 15.6 % (11.6-14.6); RBC Distribution Width SD 53.5 fl (35.1-43.9); Red Blood Count 2.59 M/mm3 (4.2-5.4); White Blood Count 6.4 K/mm3 (4.4-11.0)
[2021-08-31 05:18] LABS: Anion Gap 5 (5-15); BUN 5 mg/dL (7-18); BUN/Creat Ratio 8.8 RATIO (10-20); Chloride 109 mmol/L (98-107); Creatinine, Serum 0.56 mg/dL (0.55-1.02); EST Glomerular Filtration Rate 118 mL/min (>60); Est Glom Filt Rate - Afr Amer 143 mL/min (>60); Estimated Creatinine Clearance 106.26 ml/min; Glucose 116 mg/dL (74-106); Potassium 3.7 mmol/L (3.5-5.1); Sodium Level 142 mmol/L (136-145)
--- NOTE | 2021-08-31 08:14 | PCM.DC ---
Discharge Instructions Diet Discharge Diet: Low fat / Low cholesterol and 2000 mg Sodium Diet Activity Discharge Activity: Return to Normal Activity and May Not Drive Dressing / Incision Call your doctor if you observe: Fever of 101 or Higher, Coldness, Increased Pain, Numbness or Tingling, Change in Color, Inability to urinate, Inability to have a bowel movement, Using more than 1 pad per hour, Shortness of breath, Dizziness, Fainting spells, Swelling in the ankles, Chest pain, Prolonged hiccupping, Increased palpitations (irregular heartbeat), Calf discomfort and Uncontrolled pain Follow Up Care Test Results: Test results from this visit will be discussed in further detail at your follow-up appointment, if applicable. Discharge Plan Admission Admit Date/Time: 08/26/21 01:05 Primary Reason for Your Visit: Acute GI bleed, site unclear Attending Provider: Nick Romano Primary Care Provider: Alvarez Montanez Instructions Additional Instructions / Restrictions: Advised thigh-high MATTHEW hose when patient is walking or standing Discharge Orders/Prescriptions Prescriptions: New pantoprazole [Protonix] [address] for susp in packet 40 mg PO BID Qty: 60 RF: 1 Continued omeprazole 40 mg capsule,delayed release(DR/EC) 40 mg PO DAILY RF: 0 albuterol sulfate [ProAir HFA] 90 mcg/actuation HFA aerosol inhaler 2 puff INHALATION Q4H PRN (Reason: shortness of breath or wheezing) RF: 0 venlafaxine 75 mg capsule,extended release 24hr 75 mg PO DAILY RF: 0 Ensure Compact Liquid 118 ml PO DAILY RF: 0 Dulera 100-5 mcg/actuation Hfa Aerosol Inhaler 2 puff INHALATION Q12H PRN (Reason: sob) RF: 0 venlafaxine 37.5 mg capsule,extended release 24hr 37.5 mg PO DAILY RF: 0 clonazepam 1 mg tablet 1 mg PO BID RF: 0 atorvastatin 80 mg tablet 80 mg PO QHS RF: 0 mirtazapine 7.5 mg tablet 7.5 mg PO QHS RF: 0 metoprolol succinate 100 mg tablet extended release 24 hr 100 mg PO DAILY Qty: 0 RF: 0 losartan 25 mg tablet 25 mg PO DAILY Qty: 30 RF: 0 spironolactone 50 mg tablet 50 mg PO DAILY Qty: 0 RF: 0 divalproex 250 mg tablet extended release 24 hr 250 mg PO BID Qty: 60 RF: 2 levetiracetam 500 mg tablet 500 mg PO BID Qty: 60 RF: 2 Changed furosemide [Lasix] 20 mg tablet 20 mg PO DAILY PRN (Reason: leg swelling) Qty: 30 RF: 0 Discontinued rivaroxaban 20 mg tablet 20 mg PO DAILY Qty: 90 RF: 3 Referrals / Follow Up: Ajay Millard DO [STAFF PHYSICIAN] - Within 2 Weeks (for obscure GI Bleed, unknown source) Alvarez Montanez MD [Primary Care Provider] - Within 1 Week Disposition Disposition (needs filled in before D/C Order can be placed): Home Health Service
--- NOTE | 2021-08-31 08:14 | PCM.DC.SUM ---
Providers Date of Admission: 08/26/21 Date of Discharge: 08/31/21 Primary Care Physician: Dr. Alvarez Montanez MD Consultations 08/28/21 07:11 Consult: Gastroenterology Routine Consulting Provider: [facility] Reason for Consult: GI bleed EMERGENT Consult: No MD Notified: Yes Date Notified: 08/28/21 Time Notified: 09:44 Method of Notification: spoke on phone Reason For Visit: ACUTE UTI, LEIGH ANN Diagnosis Discharge Diagnosis (1) UTI (urinary tract infection): Status: Acute Code(s): N39.0 - Urinary tract infection, site not specified Qualifiers: Hematuria presence: without hematuria Urinary tract infection type: acute cystitis Qualified Code(s): N30.00 - Acute cystitis without hematuria (2) LEIGH ANN (acute kidney injury): Status: Acute Code(s): N17.9 - Acute kidney failure, unspecified (3) Pneumonia: Status: Acute Code(s): J18.9 - Pneumonia, unspecified organism Qualifiers: Aspiration pneumonia type: due to vomit Laterality: bilateral Lung location: lower lobe of lung Pneumonia type: aspiration pneumonia Qualified Code(s): J69.0 - Pneumonitis due to inhalation of food and vomit (4) Hematemesis: Status: Acute Code(s): K92.0 - Hematemesis Qualifiers: Nausea presence: with nausea Qualified Code(s): K92.0 - Hematemesis (5) Weakness: Status: Acute Code(s): R53.1 - Weakness Medications at Discharge Home Medications albuterol sulfate 90 mcg/actuation aerosol inhaler 2 puff INHALATION Q4H PRN g 08/01/17 omeprazole 40 mg capsule,delayed release 40 mg PO DAILY 08/01/17 venlafaxine 75 mg capsule,extended release 24 hr 75 mg PO DAILY 03/02/21 Dulera 2 puff INHALATION Q12H PRN 03/15/21 venlafaxine 37.5 mg PO DAILY 04/25/21 clonazepam 1 mg PO BID 05/09/21 food supplemt, lactose-reduced 118 ml PO DAILY ml 05/24/21 divalproex 250 mg tablet,extended release 24 hr 250 mg PO BID #60 tab 05/30/21 levetiracetam 500 mg tablet 500 mg PO BID #60 tab 05/30/21 atorvastatin 80 mg PO QHS 08/26/21 mirtazapine 7.5 mg PO QHS 08/26/21 furosemide [Lasix] 20 mg PO DAILY PRN #30 tab 08/31/21 losartan 25 mg PO DAILY #30 tab 08/31/21 metoprolol succinate 100 mg PO DAILY #0 tab 08/31/21 pantoprazole [Protonix] 40 mg PO BID #60 ea 08/31/21 spironolactone 50 mg PO DAILY #0 tab 08/31/21 Hospital Course Summary of Care Provided Hospital Course: This 55-year-old female with multiple comorbidities was admitted when the patient found herself in the pool of blood when she woke up that she vomited blood. She also reported episode of epistaxis and choking on a piece of steak but able to bring it out. Patient on Xarelto for history of pulmonary embolism for last 5 years. She was further admitted on the [facility] floor and hospital course and management as follows: 1. Acute blood loss anemia with chronic anemia most probably due to obscure/middle GI bleed: H&H 7.0/23. IV iron was given. Iron studies are normal. On PPI. 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 A single nonbleeding angiodysplastic lesion in the stomach, treated with argon laser coagulation. Normal second portion of duodenum. Mild reflux esophagitis. On 08/30: Hemoglobin further dropped to 6.7. 1 unit of PRBC was transfused and repeat hemoglobin 7.8. Patient had colonoscopy on 08/30 and no evidence of diverticular bleeding or cause of bleeding found. Mild sigmoid diverticulosis. Overall clinical diagnosis of obscure/small bowel bleed was made. Patient advised to follow-up with GI in 2 weeks for capsule endoscopy. Discussed with Dr. Millard. 2. Chronic hypoxic respiratory failure with history of PE 5 years ago: Patient on 3 L of oxygen. Xarelto discontinued after she was found hematemesis and severe anemia 3. Infectious disease: Acute E. coli UTI/cystitis, possible aspiration pneumonia: Burning micturition got resolved. Continue Levaquin and Flagyl as patient is suspicion of aspiration pneumonia also. Urine culture shows more than 100,000 colonies of E. coli, ESBL negative sensitive to Levaquin. Patient had 5 days of Levaquin and Flagyl did not had any fever or chills. Patient completed antibiotic antibiotic discontinued patient also having loose bowel movement. Had lactobacillus. Diarrhea resolved. 4. LEIGH ANN: Resolved. Patient admitted with creatinine 2.21. Currently 0.63. No decrease in urine output. Treated with IV fluid. 4. Obstructive sleep apnea: Patient encouraged to wear BiPAP. 5 multiple other chronic comorbidities include chronic nonspecific unclear epilepsy disorder, anxiety and depression: Patient is on Keppra and continued. DVT: SCDs. Pharmacological prophylaxis contraindicated Discharge medication reconciliation done. Discharge follow-up instructions completed. Discharge process discussed with the patient and all questions were answered to patient's satisfaction. Prescription for Protonix sent to patient's pharmacy. Advised follow-up with GI within 2 weeks for obscure GI bleed Total time spent, exact 35 minutes on discharge meds reconciliation, examination, coordination of care with nurses and ancillary staff, review of imaging and blood test and discussion with the patient on follow-up instructions Physical Exam Narrative Patient had burning micturition which resolved. Patient does not have abdominal pain or tenderness. GI bleed has stopped. General: Alert, Oriented x3, Cooperative HEENT: Atraumatic, PERRLA, EOMI, Normocephalic Oral: No Gingival or Mucosal Lesions/ Ulcerations Neck: Supple, No JVD, Negative Carotid Bruits Lungs: Air entry diminished in bilateral lung bases. No crepitation/rhonchi Cardiovascular: Regular rate, Regular Rhythm, Normal S1, Normal S2, No murmurs Abdomen: Bowel Sounds Present, Soft, no tenderness. No rebound tenderness. : No renal angle tenderness. No suprapubic tenderness. Extremities: edema, Capillary Refill Less than 3 Seconds Skin: No rashes, No breakdown Musculoskeletal: No Tenderness to Palpation of Joints or Extremities Neurological: Cranial nerves II-XII grossly intact, DTR 2+/4 and Symmetrical, Neuro grossly intact Psych/Mental Status: Flat affect HEENT normocephalic and moist oral mucous membranes Eyes PERRL, EOMs intact bilaterally and conjunctivae normal Neck supple and no JVD Resp normal respiratory effort, no retractions, no use of accessory muscles and clear to auscultation bilaterally Auscultation: diminished lung sounds; Negative for crackles, rales, rhonchi or wheezes Cardio regular rate, regular rhythm, S1 normal heart sound, S2 normal heart sound and no murmurs GI soft to palpation, non-tender and non-distended; Negative for hepatosplenomegaly Extremity no clubbing, cyanosis or edema Skin no rashes or lesions noted Neuro no focal motor deficits and no sensory deficits noted Psych affect normal Appearance: appropriate Weight / BMI Weight Weight: 257 lb 15.053 oz Body Mass Index (BMI) 41.7 ABG / Lab / Microbiology Data Result Diagrams: 08/31/21 04:19 08/31/21 04:19 Laboratory: Laboratory Results - last 24 hr 08/30/21 06:46: Blood Type A POSITIVE, Antibody Screen NEGATIVE, Crossmatch See Detail 08/31/21 04:19: WBC 6.4, RBC 2.59 L, Hgb 7.8 L, Hct 25.0 L, MCV 96.5, MCH 30.1, MCHC 31.2 L, RDW Std Deviation 53.5 H, RDW Coeff of Immanuel 15.6 H, Plt Count 257, MPV 10.9, Immature Gran % (Auto) 1.200 H, Neut % (Auto) 54.7, Lymph % (Auto) 31.2, [place] % (Auto) 9.3, Eos % (Auto) 3.0, Baso % (Auto) 0.6, Absolute Neuts (auto) 3.5, Absolute Lymphs (auto) 2.01, Nucleated RBC % 0.5 08/31/21 04:19: Sodium 142, Potassium 3.7, Chloride 109 H, Carbon Dioxide 28.0, Anion Gap 5, BUN 5 L, Creatinine 0.56, Estim Creat Clear Calc 106.26, Est GFR (MDRD) Af Amer 143, Est GFR (MDRD) Non-Af 118, BUN/Creatinine Ratio 8.8 L, Glucose 116 H, Calcium 8.0 L Microbiology: Microbiology 08/26/21 00:50 Blood Culture (Wb) - Anticubital Left Blood Culture - Final No growth in 5 days. 08/26/21 01:00 Blood Culture (Wb) - Anticubital Right Blood Culture - Final No growth in 5 days. 08/27/21 21:35 Stool Stool Occult Blood (KAELA) - Final Occult Blood Positive 08/26/21 01:00 Urine, Catheterized Urine Culture - Final Presumptive E. coli 08/26/21 00:08 Nasal Secretion SARS-CoV-2 Antigen (Rapid) - Final Meaningful Use Info Meaningful Use Diagnoses (Choose all that apply): None applicable Discharge Plan Admission Admit Date/Time: 08/26/21 01:05 Primary Reason for Your Visit: Acute GI bleed, site unclear Attending Provider: Nick Romano Primary Care Provider: Alvarez Montanez Instructions Additional Instructions / Restrictions: Advised thigh-high MATTHEW hose when patient is walking or standing Discharge Orders/Prescriptions Prescriptions: New pantoprazole [Protonix] [address] for susp in packet 40 mg PO BID Qty: 60 RF: 1 Continued omeprazole 40 mg capsule,delayed release(DR/EC) 40 mg PO DAILY RF: 0 albuterol sulfate [ProAir HFA] 90 mcg/actuation HFA aerosol inhaler 2 puff INHALATION Q4H PRN (Reason: shortness of breath or wheezing) RF: 0 venlafaxine 75 mg capsule,extended release 24hr 75 mg PO DAILY RF: 0 Ensure Compact Liquid 118 ml PO DAILY RF: 0 Dulera 100-5 mcg/actuation Hfa Aerosol Inhaler 2 puff INHALATION Q12H PRN (Reason: sob) RF: 0 venlafaxine 37.5 mg capsule,extended release 24hr 37.5 mg PO DAILY RF: 0 clonazepam 1 mg tablet 1 mg PO BID RF: 0 atorvastatin 80 mg tablet 80 mg PO QHS RF: 0 mirtazapine 7.5 mg tablet 7.5 mg PO QHS RF: 0 metoprolol succinate 100 mg tablet extended release 24 hr 100 mg PO DAILY Qty: 0 RF: 0 losartan 25 mg tablet 25 mg PO DAILY Qty: 30 RF: 0 spironolactone 50 mg tablet 50 mg PO DAILY Qty: 0 RF: 0 divalproex 250 mg tablet extended release 24 hr 250 mg PO BID Qty: 60 RF: 2 levetiracetam 500 mg tablet 500 mg PO BID Qty: 60 RF: 2 Changed furosemide [Lasix] 20 mg tablet 20 mg PO DAILY PRN (Reason: leg swelling) Qty: 30 RF: 0 Discontinued rivaroxaban 20 mg tablet 20 mg PO DAILY Qty: 90 RF: 3 Referrals / Follow Up: Ajay Millard DO [STAFF PHYSICIAN] - Within 2 Weeks (for obscure GI Bleed, unknown source) Alvarez Montanez MD [Primary Care Provider] - Within 1 Week Disposition Disposition (needs filled in before D/C Order can be placed): Home Health Service Charges/Coding Visit Charges Inpatient E&M: 14785 Disch Hosp
[2021-08-31 08:15] VITALS: O2SAT 98
[2021-08-31 08:38] VITALS: O2SAT 98
[2021-08-31 08:52] VITALS: BP 107/64; PULSE 69; RESP 18; TEMP 36.6; O2SAT 97
[2021-08-31] MEDS: Divalproex (ER) 250 MG Tablet PO (08:54)
[2021-08-31] MEDS: levETIRAcetam 500 MG Tablet PO (08:54)
[2021-08-31] MEDS: clonazePAM 1 MG Tablet PO (08:54)
[2021-08-31 08:55] VITALS: PULSE 69
[2021-08-31] MEDS: Venlafaxine XR 37.5 MG Capsule PO (08:55)
[2021-08-31] MEDS: Venlafaxine XR 75 MG Capsule PO (08:55)
[2021-08-31] MEDS: Metoprolol(XL)Succ 100 MG Tablet PO (08:55)
[2021-08-31] MEDS: Acetaminophen 325 MG Tablet 650 MG PO (08:57)
--- NOTE | 2021-08-31 11:09 | CASEMGMT ---
Addendum entered by Lata Santana 08/31/21 11:22: [facility] does not have ST per Ama. Original Note: RN CM in to pt room, pt states she is ready for dc. She is aware that HHC will continue and that SN was added. Pt is aware that she needs a MBS as an outpt and states she will call to schedule this. Pt denies any further homegoing needs. TC to [facility], spoke with July, she is aware pt will dc today. Faxed referral info at this time.
[2021-08-31 11:58] VITALS: BP 118/81; PULSE 62; RESP 16; TEMP 36.8; O2SAT 99
--- NOTE | 2021-09-09 16:21 | CASEMGMT ---
This RN CM received notification that pt's pantoprazole sodium requires a prior authorization. Prior auth completed on [employer]. [place]: [id number]. Authorization pending. This RN CM spoke with pt who confirmed she has not picked up the medication. Made pt aware that prior auth was being submitted and would follow-up with a determination. Nghia John RN CM
--- NOTE | 2021-09-09 17:45 | CASEMGMT ---
Prior authorization determination remains pending. Phone call placed to pt with update. Pt is reporting that she continues to not feel well with c/o stomach pains and states this morning she noted blood in the toilet but was unsure if was from her stool or her urine. Pt also reports to be dizzy. Pt aware of her f/u appointment with Dr. Millard on 09/15. Pt states she has not been in contact with her PCP Dr. Montanez and states she is considering changing her PCP. Encouraged pt to contact Dr. Montanez until a new PCP can be established or contact Dr. Millard for recommendations d/t ongoing symptoms. Also discussed option of returning to the ED for evaluation if these other attempts are not successful. Pt expressed understanding. Will continue to follow for prior authorization determination. Nghia John RN CM
--- NOTE | 2021-09-12 11:19 | CASEMGMT ---
This PAT ALBA checked the [employer] site and the prior authorization remains with determination pending. Attempted to call patient to notify and follow-up on symptoms. Voicemail received. Message left requesting a return call. No [facility] ED visits noted since 09/09/21. Nghia John RN CM
--- NOTE | 2021-09-13 09:57 | CASEMGMT ---
Fax notification received stating pt's Pantoprazole was authorized. Call placed to [facility] in [place]. Meredith states they received the prior authorizatoin and the medication is ready for the pt to pick-up with a $3 co-pay. This PAT ALBA contacted pt via phone and notified of authorization being received and that medication is ready to be picked-up with the corresponding co-pay. Pt acknowledged and expressed understanding. Pt states she continues to feel very tired. When asked if she contacted her doctors regarding her on-going symptoms she states she did and that is why I have an appointment this week. Pt states she passed a little bit more blood since we last spoke. Pt denies any further needs at this time. Nghia John RN CM
== END 2021-08-31 12:30 | disposition home health service (06) | DRG 253 ==
LOC: ED 08-26 01:10 → MS3 08-26 01:33
PROVIDERS: Family Medicine; Internal Medicine Gastroenterology; Admitting Provider Hospitalist; Emergency Provider Emergency Medicine; PCP Internal Medicine; Visit Provider Internal Medicine
PROC: 0DJ08ZZ Inspection of Upper Intestinal Tract, Via Natural or Artificial Opening Endoscopic (ICD-10-PCS; CPT 43235; principal; 2021-08-29 11:25)
PROC: 0DJD8ZZ Inspection of Lower Intestinal Tract, Via Natural or Artificial Opening Endoscopic (ICD-10-PCS; CPT 45378; principal; 2021-08-30 15:35)
DX: K31.811 Angiodysplasia of stomach and duodenum with bleeding (principal); J69.0 Pneumonitis due to inhalation of food and vomit; N17.9 Acute kidney failure, unspecified; G40.909 Epilepsy, unspecified, not intractable, without status epilepticus; I48.91 Unspecified atrial fibrillation; D62 Acute posthemorrhagic anemia; K57.31 Diverticulosis of large intestine without perforation or abscess with bleeding; J44.0 Chronic obstructive pulmonary disease with (acute) lower respiratory infection; J96.11 Chronic respiratory failure with hypoxia; I11.0 Hypertensive heart disease with heart failure; I50.32 Chronic diastolic (congestive) heart failure; E66.01 Morbid (severe) obesity due to excess calories; Z68.41 Body mass index [BMI] 40.0-44.9, adult; N30.00 Acute cystitis without hematuria; G47.33 Obstructive sleep apnea (adult) (pediatric); E78.5 Hyperlipidemia, unspecified; I25.10 Atherosclerotic heart disease of native coronary artery without angina pectoris; B96.20 Unspecified Escherichia coli [E. coli] as the cause of diseases classified elsewhere; D50.9 Iron deficiency anemia, unspecified; F41.9 Anxiety disorder, unspecified; I25.2 Old myocardial infarction; E03.9 Hypothyroidism, unspecified; K92.0 Hematemesis; Z79.01 Long term (current) use of anticoagulants; Z87.891 Personal history of nicotine dependence; K21.00 Gastro-esophageal reflux disease with esophagitis, without bleeding; R13.10 Dysphagia, unspecified; F32.A Depression, unspecified; Z20.822 Contact with and (suspected) exposure to COVID-19; Z99.81 Dependence on supplemental oxygen; Z86.711 Personal history of pulmonary embolism; Z99.3 Dependence on wheelchair; Z86.718 Personal history of other venous thrombosis and embolism; Z85.3 Personal history of malignant neoplasm of breast
CPT/HCPCS: 36415; 71045; 80048; 80053; 81001; 82274; 82728; 83540; 83550; 83605; 84484; 85025; 86850; 86900; 86901; 86920; 86922; 87040; 87086; 87088; 87186; 87426; 92526; 92610; 93005; 97110; 97162; 97166; 97530; 97535; 99251; 99285; J7030; J7040; J7050; P9016; A4216; G0463; J2405; J2916

== ENCOUNTER 2021-09-15 11:06 | Outpatient (CLI) | payer MEDICAID, SELFPAY ==
[2021-09-15 11:58] LABS: Erythrocyte Sedimentation Rate 65 mm/hr (0-30)
[2021-09-15 12:02] LABS: Absolute Lymphocyte Count 1.75 X10^3/uL (0.83-4.51); Absolute Neutrophil Count 4.1 X10^3/uL (2.0-7.7); Basophil# 0.06 X10^3/uL; Basophil% 0.9 % (0-1); Eosinophil# 0.26 X10^3/uL; Eosinophils% 3.9 % (0-5); Hematocrit 29.4 % (37-47); Hemoglobin 9.3 g/dL (12.0-15.0); International Normalized Ratio 1.6; Lymphocyte # 1.75 X10^3/ul (0.83-4.51); Lymphocyte % 26.3 % (19-41); Mean Corp Hgb Conc 31.6 g/dL (32-36); Mean Corpuscular Hgb 30.4 pg (27.0-32.0); Mean Corpuscular Volume 96.1 fL (81-99); Mean Platelet Vol. 11.5 fl (6.2-12.0); Monocyte# 0.45 X10^3/uL; Monocyte% 6.8 % (0-10); NRBC Flagged by Analyzer 0 % (0-5); Neutrophil # 4.12 X10^3/uL (2.7-7.7); Neutrophil % 61.8 % (47-70); Platelet Count 237 K/mm3 (150-450); Prothrombin Time (Protime)PT. 18.5 SECONDS (11.7-14.9); RBC Distribution Width CV 14.4 % (11.6-14.6); RBC Distribution Width SD 50.2 fl (35.1-43.9); Red Blood Count 3.06 M/mm3 (4.2-5.4); White Blood Count 6.7 K/mm3 (4.4-11.0)
[2021-09-15 12:03] LABS: Partial Thromboplast Time 34.1 Seconds (24.1-36.2)
[2021-09-15 12:26] LABS: ALB/GLOB Ratio 0.9 RATIO (0.9-2.4); AST(SGOT) 16 U/L (15-37); Alanine Aminotransfer ALT/SGPT 24 U/L (13-56); Albumin, Serum 3.7 g/dL (3.2-5.0); Alkaline Phosphatase 85 U/L (45-117); Anion Gap 3 (5-15); BUN 21 mg/dL (7-18); BUN/Creat Ratio 28.2 RATIO (10-20); Calcium,Total 9.1 mg/dL (8.5-10.1); Chloride 108 mmol/L (98-107); Creatinine, Serum 0.74 mg/dL (0.55-1.02); EST Glomerular Filtration Rate 86 mL/min (>60); Est Glom Filt Rate - Afr Amer 104 mL/min (>60); Globulin 3.9 g/dL (2.2-4.2); Glucose 94 mg/dL (74-106); LDH 153 U/L (84-246); Potassium 4.5 mmol/L (3.5-5.1); Protein, Total 7.6 g/dL (6.4-8.2); Sodium Level 139 mmol/L (136-145)
[2021-09-16 11:09] LABS: Anti-Centromere B Ab <0.2 AI (0.0-0.9); Anti-Chromatin <0.2 AI (0.0-0.9); Anti-Jo <0.2 AI (0.0-0.9); Anti-Scleroderma-70 AB <0.2 AI (0.0-0.9); RNP Ab <0.2 AI (0.0-0.9); SJOGREN'S Anti-SS-A test < 0.2 AI (0.0-0.9); SJOGREN'S Anti-SS-B test < 0.2 AI (0.0-0.9); Smith Ab <0.2 AI (0.0-0.9)
[2021-09-16 11:39] LABS: Anti-dsDNA Ab <1 IU/mL (0-9)
[2021-09-16 17:26] LABS: Anti-Mitochondrial AB <20.0 Units (0.0-20.0)
[2021-09-21 11:09] LABS: Angiotensin Convert Enzyme 33 U/L (14-82); Ceruloplasmin 28.9 mg/dL (19.0-39.0); Cytoplasmic Ab (C-ANCA) <1:20 titer (Neg:<1:20); HEPATITIS B SURFACE AG Negative (Negative); Hepatitis A IgM Antibody Negative (Negative); Hepatitis B Core AB IgM Negative (Negative); Immunoglobulin A 336 mg/dL (87-352); Immunoglobulin E 16 IU/mL (6-495); Immunoglobulin G 902 mg/dL (586-1602)
[2021-09-21 13:21] LABS: Anti-Smooth Muscle ABS 4 Units (0-19); Copper, Serum or Plasma 127 ug/dL (80-158); Hep C Antibodies <0.1 s/co ratio (0.0-0.9); Immunoglobulin M 165 mg/dL (26-217); Perinuclear Ab (P-ANCA) <1:20 titer (Neg:<1:20)
== END 2021-09-15 23:59 | disposition home or self-care (01) ==
LOC: LAB 11:08
PROVIDERS: PCP Internal Medicine; Visit Provider Nurse Practitioner Adult Health
DX: K76.0 Fatty (change of) liver, not elsewhere classified (principal); K92.1 Melena; D64.9 Anemia, unspecified
CPT/HCPCS: 36415; 80053; 80074; 82140; 82164; 82248; 82390; 82525; 82784; 82785; 83516; 83615; 85025; 85610; 85652; 85730; 86140; 86225; 86235; 86256

== ENCOUNTER 2021-09-22 18:03 | Emergency (ER) | payer MEDICAID, SELFPAY ==
[2021-09-22 18:04] VITALS: BP 111/69; PULSE 83; RESP 15; TEMP 36; O2SAT 98; BMI 38.7
[2021-09-22 18:06] VITALS: BP 111/69; PULSE 83; RESP 15; TEMP 36; O2SAT 98
--- NOTE | 2021-09-22 18:43 | CT_ITS ---
STUDY: CT ABDOMEN AND PELVIS WITHOUT CONTRAST REASON FOR EXAM: Female, 55 years old. Right flank pain RADIATION DOSAGE (If Supplied By Facility): CTDIvol = ( 23.30 ) mGy, DLP = ( 1292.10 ) mGycm TECHNIQUE: Transaxial images were obtained from the dome of the diaphragm to the symphysis pubis without oral contrast, and without intravenous contrast. Sagittal and coronal images were reconstructed. Individualized dose optimization techniques were used for this CT. COMPARISON: None. FINDINGS: The visualized lung bases are unremarkable. The visualized portions of the heart are within normal limits. Normal liver. There are surgical clips in the gallbladder fossa consistent with a prior cholecystectomy. Normal spleen. Normal pancreas. Normal bilateral adrenal glands. There is moderate cortical atrophy of the right kidney, consistent with chronic medical renal disease. Normal left kidney. 4 cm upper pole cyst. Normal visualized stomach. Normal small intestine. High attenuation or metallic material is seen within the proximal cecum, correlate with ingestion history. There is non-visualization of the appendix. Normal abdominal aorta. Normal inferior vena cava. Normal retroperitoneum. Normal urinary bladder. There is absence of the uterus consistent with a prior hysterectomy. Normal abdominal wall. Normal osseous structures. CT/Abdomen/Pelvis without Cont IMPRESSION: No acute intra-abdominal process is identified. Moderate right renal atrophy. Cholecystectomy. High attenuation material seen within the proximal cecum, may be metallic correlate with ingestion history. Consider abdominal radiograph for further evaluation. Electronically Signed: Roshan Michaels MD at 19:57 EST ,
--- NOTE | 2021-09-22 18:53 | EDS_ITS ---
HPI <TANNER Noel - Last Filed: 09/22/21 21:23> History of Present Illness Chief Complaint: Flank Pain Narrative Narrative: 55-year-old female with PMH of HTN, HLD, PE on Xarelto, COPD on chronic 4L, anemia, kidney stones presents with 3-day history of right flank pain. Yesterday she noted hematuria but denies frequency or dysuria. She has nausea but no vomiting. Pain started radiating around to her right lower abdomen and feels kind of like previous kidney stones. She states she has had stones at least 4 times and they all passed without surgical intervention. Of note she is undergoing anemia work-up and is wearing a machine for a capsule study that was done this AM ordered by Dr. Millard. [facility] <TANNER Noel - Last Filed: 09/22/21 21:23> [facility] Medical History (Updated 09/22/21 @ 21:13 by TANNER Noel) Abnormal cardiac enzyme level Acute and chronic respiratory failure Acute respiratory failure with hypoxia and hypercapnia LEIGH ANN (acute kidney injury) Anemia Anemia Anxiety and depression Back pain Bilateral peripheral pulmonary emboli BiPAP (biphasic positive airway pressure) dependence Breast infection Cancer Cardiac arrest Cardiology follow-up encounter Cardiopulmonary arrest with successful resuscitation Chest pain Chronic anemia Chronic narcotic dependence Compression fracture of T5 vertebra Compression fracture of T6 vertebra Congestive heart failure COPD (chronic obstructive pulmonary disease) COPD exacerbation Coronary artery disease CPAP (continuous positive airway pressure) dependence Debility Dependence on continuous supplemental oxygen Depression Diastolic dysfunction DVT (deep vein thrombosis) in DVT (deep venous thrombosis) Essential hypertension Fall Former smoker GERD (gastroesophageal reflux disease) HLD (hyperlipidemia) Hx of cardiovascular stress test Hx of echocardiogram Hypertension Hypothyroidism Morbid obesity MSSA (methicillin susceptible Staphylococcus aureus) pneumonia Myocardial infarct Obesity On home oxygen therapy STEPHANIE (obstructive sleep apnea) Pulmonary embolism Restrictive lung disease Right rib fracture Seizure disorder Seizures Sleep apnea SOB (shortness of breath) Syncope and collapse TIA (transient ischemic attack) TIA (transient ischemic attack) Wears dentures Wears glasses Home Medications albuterol sulfate 90 mcg/actuation aerosol inhaler 2 puff INHALATION Q4H PRN g 08/01/17 [History Last Taken 03/03/18] omeprazole 40 mg capsule,delayed release 40 mg PO DAILY 08/01/17 [History Last Taken 08/25/21] venlafaxine 75 mg capsule,extended release 24 hr 75 mg PO DAILY 03/02/21 [History Last Taken 08/25/21] Dulera 2 puff INHALATION Q12H PRN 03/15/21 [History Last Taken Unknown] venlafaxine 37.5 mg PO DAILY 04/25/21 [History Last Taken 08/25/21] clonazepam 1 mg PO BID 05/09/21 [History Last Taken 08/25/21] food supplemt, lactose-reduced 118 ml PO DAILY ml 05/24/21 [History Last Taken 08/25/21] divalproex 250 mg tablet,extended release 24 hr 250 mg PO BID #60 tab 05/30/21 [Rx Last Taken 08/25/21] levetiracetam 500 mg tablet 500 mg PO BID #60 tab 05/30/21 [Rx Last Taken 08/25/21] atorvastatin 80 mg PO QHS 08/26/21 [History Last Taken 08/25/21] mirtazapine 7.5 mg PO QHS 08/26/21 [History Last Taken Unknown] furosemide [Lasix] 20 mg PO DAILY PRN #30 tab 08/31/21 [Rx Last Taken 08/25/21] losartan 25 mg PO DAILY #30 tab 08/31/21 [Rx Last Taken 08/25/21] metoprolol succinate 100 mg PO DAILY #0 tab 08/31/21 [Rx Last Taken 08/25/21] pantoprazole [Protonix] 40 mg PO BID #60 ea 08/31/21 [Rx Last Taken Unknown] spironolactone 50 mg PO DAILY #0 tab 08/31/21 [Rx Last Taken 08/25/21] tizanidine 4 mg PO Q8H PRN #15 tab 09/22/21 [Rx Last Taken Unknown] Allergy/AdvReac Type Severity Reaction Status Date / Time aspirin Allergy Hives Verified 09/22/21 18:06 dicyclomine Allergy Itching Verified 09/22/21 18:06 ibuprofen Allergy Hives Verified 09/22/21 18:06 ketorolac tromethamine Allergy Angioedema Verified 09/22/21 18:06 [From Toradol] meperidine HCl [From Demerol] Allergy seizures Verified 09/22/21 18:06 nitroglycerin Allergy Angioedema Verified 09/22/21 18:06 nut - unspecified Allergy Hives Verified 09/22/21 18:06 Penicillins [PCN] Allergy Hives Verified 09/22/21 18:06 tramadol HCl [From Ultram] Allergy Angioedema Verified 09/22/21 18:06 Family History Brother Myocardial infarction Asthma Mental disorder Psychiatric care Suicide attempt Father Colon cancer Brother Mental disorder Aunt Parkinson disease Sister Breast cancer Cervical cancer Ovarian cancer Sister Cervical cancer Ovarian cancer Mother Cancer History of blood clots Hypertension Surgical History History of appendectomy History of cholecystectomy History of cholecystectomy History of hysterectomy History of left breast biopsy History of left heart catheterization (LHC) (~04/22/21) Hx of appendectomy S/P lumpectomy, left breast Social History household members: none Smoking Status: Former smoker quit date: 01/21/16 pack-years: 32 second hand exposure: Yes alcohol intake: never substance use type: does not use ROS <TANNER Noel - Last Filed: 09/22/21 21:23> ROS ED ROS Narrative Constitutional: Negative for fever, chills, malaise. Eyes: Negative for visual change. ENT: Negative for sore throat, ear pain, rhinorrhea. CVS: Negative for palpitations, chest pain, syncope. Respiratory: Negative for shortness of breath, cough, orthopnea. GI: Positive for nausea. Negative for abdominal pain, vomiting, diarrhea, constipation, melena, hematochezia. : Positive for hematuria, frequency. Negative for dysuria. Neuro: Negative for headache, motor/sensory dysfunction. Skin: Negative for rash, abscess, or wound. Musc: Negative for joint pain, swelling, trauma. Heme: Negative for easy bruising, bleeding, lymphadenopathy. EXAM <TANNER Noel - Last Filed: 09/22/21 21:23> Physical Exam Narrative Exam Narrative: CONST: Patient sitting in no acute distress. EYES: Normal inspection. NECK: Normal inspection. RESP: No respiratory distress, CTAB. CVS: Regular rate and rhythm, no murmur, no gallop. ABD: Soft and nontender, no guarding or rebound, nondistended. Back: Normal inspection, right CVA tenderness. SKIN: Color normal, no rash, warm, dry, intact. EXTREMITIES: Normal appearance, no pedal edema. NEURO: Oriented x4. PSYCH: Normal affect. Const Vital Signs: 09/22/21 18:04 09/22/21 18:06 Temperature 96.8 F L 96.8 F L Temperature Source Temporal Temporal Pulse Rate 83 83 Respiratory Rate 15 15 Blood Pressure 111/69 111/69 Blood Pressure Mean 83 83 Pulse Ox 98 98 Oxygen Delivery Method Room Air Room Air <Dr. Rubi Mas DO - Last Filed: 09/26/21 16:47> Physical Exam Const Vital Signs: 09/22/21 18:04 09/22/21 18:06 Temperature 96.8 F L 96.8 F L Temperature Source Temporal Temporal Pulse Rate 83 83 Respiratory Rate 15 15 Blood Pressure 111/69 111/69 Blood Pressure Mean 83 83 Pulse Ox 98 98 Oxygen Delivery Method Room Air Room Air Back/Spine Back/Spine Narrative: right mid thoracic and lumbar paraspinal tenderness to palpation Lumbar Spine / Lower Back: Negative for lumbar spinal tenderness [facility] <TANNER Noel - Last Filed: 09/22/21 21:23> [facility] Narrative Medical decision making narrative: Patient was seen for right flank pain. She appears well and nontoxic. Afebrile and vital signs within normal limits. Her cardiopulmonary exam is normal. Abdomen soft and nontender with no peritoneal signs. There is slight right CVA tenderness. Labs show normal white count and chronic anemia improving at 10.0. Creatinine of 1.16 is higher than her baseline but does not meet LEIGH ANN threshold. UA is negative. CT abdomen/pelvis shows no acute process but does note right renal atrophy. Similar findings were seen on his CT from 05/12 which showed multifocal areas of scarring and thinning in the right kidney. With her slight increase in creatinine this will need monitored by her PCP. I did not give her IV fluids as she has CHF. Of note the CAT scan also read high attenuation material in the colon which is the capsule study from this morning. Her pain may be musculoskeletal as she does have reproducible pain of the back. She was prescribed tizanidine and can take [id number] pain medication and follow- up with her PCP. Diagnosis 1. Right flank pain of unknown etiology 2. Right renal atrophy Lab Data Labs: Laboratory Results - last 24 hr 09/22/21 09/22/21 09/22/21 18:30 18:30 19:10 WBC 7.2 RBC 3.25 L Hgb 10.0 L Hct 30.6 L MCV 94.2 MCH 30.8 MCHC 32.7 RDW Std Deviation 48.5 H RDW Coeff of Immanuel 14.2 Plt Count 317 MPV 11.2 Immature Gran % (Auto) 0.300 Neut % (Auto) 52.2 Lymph % (Auto) 33.8 Bee % (Auto) 7.6 Eos % (Auto) 5.3 H Baso % (Auto) 0.8 Absolute Neuts (auto) 3.8 Absolute Lymphs (auto) 2.43 Nucleated RBC % 0 Sodium 138 Potassium 4.1 Chloride 107 Carbon Dioxide 28.0 Anion Gap 3 L BUN 20 H Creatinine 1.16 H Estim Creat Clear Calc 51.30 Est GFR (MDRD) Af Amer 62 Est GFR (MDRD) Non-Af 51 L BUN/Creatinine Ratio 17.2 Glucose 109 H Calcium 9.3 Urine Color Yellow Urine Clarity Clear Urine pH 7.0 Ur Specific [place] 1.010 Urine Protein Negative Urine Glucose (UA) Normal Urine Ketones Negative Urine Occult Blood Negative Urine Nitrite Negative Urine Bilirubin Negative Urine Urobilinogen Normal Ur Leukocyte Esterase 25 H Urine RBC 0 SEEN Urine WBC 0 SEEN Ur Squamous Epith Cells 0 SEEN Urine Bacteria 0 SEEN Urine Mucus 0 SEEN Radiography Diagnostic Testing: Clinical Impression(s) from Imaging Studies Abdomen/Pelvis CT 09/22/21 18:43 IMPRESSION: No acute intra-abdominal process is identified. Moderate right renal atrophy. Cholecystectomy. High attenuation material seen within the proximal cecum, may be metallic correlate with ingestion history. Consider abdominal radiograph for further evaluation. Electronically Signed: Roshan Michaels MD at 19:57 EST , <Dr. Rubi Mas, DO - Last Filed: 09/26/21 16:47> [facility] Narrative Medical decision making narrative: Patient evaluated independently and in conjunction with physician bookkeeper assistant. Agree with note above unless documented otherwise. I was personally present or immediately available for all clinically relevant procedures and performed my own physical exam and review of systems. Lab Data Labs: Laboratory Results - last 24 hr 09/22/21 09/22/21 09/22/21 18:30 18:30 19:10 WBC 7.2 RBC 3.25 L Hgb 10.0 L Hct 30.6 L MCV 94.2 MCH 30.8 MCHC 32.7 RDW Std Deviation 48.5 H RDW Coeff of Immanuel 14.2 Plt Count 317 MPV 11.2 Immature Gran % (Auto) 0.300 Neut % (Auto) 52.2 Lymph % (Auto) 33.8 Bee % (Auto) 7.6 Eos % (Auto) 5.3 H Baso % (Auto) 0.8 Absolute Neuts (auto) 3.8 Absolute Lymphs (auto) 2.43 Nucleated RBC % 0 Sodium 138 Potassium 4.1 Chloride 107 Carbon Dioxide 28.0 Anion Gap 3 L BUN 20 H Creatinine 1.16 H Estim Creat Clear Calc 51.30 Est GFR (MDRD) Af Amer 62 Est GFR (MDRD) Non-Af 51 L BUN/Creatinine Ratio 17.2 Glucose 109 H Calcium 9.3 Urine Color Yellow Urine Clarity Clear Urine pH 7.0 Ur Specific [place] 1.010 Urine Protein Negative Urine Glucose (UA) Normal Urine Ketones Negative Urine Occult Blood Negative Urine Nitrite Negative Urine Bilirubin Negative Urine Urobilinogen Normal Ur Leukocyte Esterase 25 H Urine RBC 0 SEEN Urine WBC 0 SEEN Ur Squamous Epith Cells 0 SEEN Urine Bacteria 0 SEEN Urine Mucus 0 SEEN Radiography Diagnostic Testing: Clinical Impression(s) from Imaging Studies Abdomen/Pelvis CT 09/22/21 18:43 IMPRESSION: No acute intra-abdominal process is identified. Moderate right renal atrophy. Cholecystectomy. High attenuation material seen within the proximal cecum, may be metallic correlate with ingestion history. Consider abdominal radiograph for further evaluation. Electronically Signed: Roshan Michaels MD at 19:57 EST , Discharge Plan Triage Chief Complaint: Flank Pain ED Provider: Erin Smith Dx/Rx/DC Orders Clinical Impression: Acute flank pain Instructions: ED Flank Pain, Uncertain Cause Prescriptions: New tizanidine 4 mg tablet 4 mg PO Q8H PRN (Reason: muscle spasticity) Qty: 15 RF: 0 No Action omeprazole 40 mg capsule,delayed release(DR/EC) 40 mg PO DAILY RF: 0 albuterol sulfate [ProAir HFA] 90 mcg/actuation HFA aerosol inhaler 2 puff INHALATION Q4H PRN (Reason: shortness of breath or wheezing) RF: 0 venlafaxine 75 mg capsule,extended release 24hr 75 mg PO DAILY RF: 0 Ensure Compact Liquid 118 ml PO DAILY RF: 0 Dulera 100-5 mcg/actuation Hfa Aerosol Inhaler 2 puff INHALATION Q12H PRN (Reason: sob) RF: 0 venlafaxine 37.5 mg capsule,extended release 24hr 37.5 mg PO DAILY RF: 0 clonazepam 1 mg tablet 1 mg PO BID RF: 0 atorvastatin 80 mg tablet 80 mg PO QHS RF: 0 mirtazapine 7.5 mg tablet 7.5 mg PO QHS RF: 0 pantoprazole [Protonix] [address] for susp in packet 40 mg PO BID Qty: 60 RF: 1 metoprolol succinate 100 mg tablet extended release 24 hr 100 mg PO DAILY Qty: 0 RF: 0 losartan 25 mg tablet 25 mg PO DAILY Qty: 30 RF: 0 furosemide [Lasix] 20 mg tablet 20 mg PO DAILY PRN (Reason: leg swelling) Qty: 30 RF: 0 spironolactone 50 mg tablet 50 mg PO DAILY Qty: 0 RF: 0 divalproex 250 mg tablet extended release 24 hr 250 mg PO BID Qty: 60 RF: 2 levetiracetam 500 mg tablet 500 mg PO BID Qty: 60 RF: 2 Primary Care Provider: Alvarez Montanez Referrals: Alvarez Montanez MD [Primary Care Provider] - Activity Restrictions/Additional Instructions: Today there was no evidence of a kidney stone on the CAT scan. Your blood work showed that your kidney function was slightly higher than normal and the scan showed that your right kidney is smaller than normal. Your PCP needs to monitor your kidney function- please call them for a follow up appointment. However, today the cause of your flank pain is unknown but may be musculoskeletal. I prescribed a muscle relaxer called tizanidine and you can also take tylenol as needed. Disposition Disposition: Home, Self Care Discharge Date/Time: 09/22/21 21:44
[2021-09-22] MEDS: Ondansetron 4 MG/2 ML Vial IV (18:59)
[2021-09-22 19:07] LABS: Absolute Lymphocyte Count 2.43 X10^3/uL (0.83-4.51); Absolute Neutrophil Count 3.8 X10^3/uL (2.0-7.7); Basophil# 0.06 X10^3/uL; Basophil% 0.8 % (0-1); Eosinophil# 0.38 X10^3/uL; Eosinophils% 5.3 % (0-5); Hematocrit 30.6 % (37-47); Lymphocyte # 2.43 X10^3/ul (0.83-4.51); Lymphocyte % 33.8 % (19-41); Mean Corp Hgb Conc 32.7 g/dL (32-36); Mean Corpuscular Hgb 30.8 pg (27.0-32.0); Mean Corpuscular Volume 94.2 fL (81-99); Mean Platelet Vol. 11.2 fl (6.2-12.0); Monocyte# 0.55 X10^3/uL; Monocyte% 7.6 % (0-10); NRBC Flagged by Analyzer 0 % (0-5); Neutrophil # 3.75 X10^3/uL (2.7-7.7); Neutrophil % 52.2 % (47-70); Platelet Count 317 K/mm3 (150-450); RBC Distribution Width CV 14.2 % (11.6-14.6); RBC Distribution Width SD 48.5 fl (35.1-43.9); Red Blood Count 3.25 M/mm3 (4.2-5.4); White Blood Count 7.2 K/mm3 (4.4-11.0)
[2021-09-22 19:15] LABS: Anion Gap 3 (5-15); BUN 20 mg/dL (7-18); BUN/Creat Ratio 17.2 RATIO (10-20); Calcium,Total 9.3 mg/dL (8.5-10.1); Chloride 107 mmol/L (98-107); Creatinine, Serum 1.16 mg/dL (0.55-1.02); EST Glomerular Filtration Rate 51 mL/min (>60); Est Glom Filt Rate - Afr Amer 62 mL/min (>60); Glucose 109 mg/dL (74-106); Potassium 4.1 mmol/L (3.5-5.1); Sodium Level 138 mmol/L (136-145)
[2021-09-22 19:23] LABS: Bacteria 0 SEEN /hpf (None Seen); Mucous, Urine 0 SEEN /hpf (<or=2+); Red Blood Cells-Urine 0 SEEN /hpf (0-5); Squamous Epithelial Cells - UA 0 SEEN /hpf (5-10); White Blood Cells 0 SEEN /hpf (0-5)
[2021-09-22] MEDS: fentaNYL 100 MCG/2 ML Ampul 50 MCG IV (19:48)
[2021-09-22 19:53] LABS: Color, Urine Yellow (Yellow); Glucose, Dipstick Normal (Normal); Ketone-Dipstick Negative (Negative); Leukocyte Esterase-Dipstick 25 /ul (Negative); Nitrite-Dipstick Negative (Negative); Occult Blood-Urine Negative /ul (Negative); Protein-Dipstick Negative (Negative); Urine Bilirubin Dipstick Negative (Negative); Urine Clarity Clear (Clear); Urine Urobilinogen Normal (Normal)
[2021-09-22] MEDS: tiZANidine HCl 2 MG Tablet 4 MG PO (21:37)
[2021-09-22 21:44] VITALS: BP 110/60; PULSE 78; RESP 16
== END 2021-09-22 21:44 | disposition home or self-care (01) ==
PROVIDERS: Emergency Provider Physician Assistant; PCP Internal Medicine; Visit Provider Physician Assistant
DX: R10.9 Unspecified abdominal pain (principal); N26.1 Atrophy of kidney (terminal); M54.9 Dorsalgia, unspecified; R11.0 Nausea; J44.9 Chronic obstructive pulmonary disease, unspecified; I11.0 Hypertensive heart disease with heart failure; I50.32 Chronic diastolic (congestive) heart failure; D64.9 Anemia, unspecified; E78.5 Hyperlipidemia, unspecified; I25.10 Atherosclerotic heart disease of native coronary artery without angina pectoris; G40.909 Epilepsy, unspecified, not intractable, without status epilepticus; E03.9 Hypothyroidism, unspecified; G47.33 Obstructive sleep apnea (adult) (pediatric); E66.01 Morbid (severe) obesity due to excess calories; Z79.01 Long term (current) use of anticoagulants; Z87.442 Personal history of urinary calculi; Z86.73 Personal history of transient ischemic attack (TIA), and cerebral infarction without residual deficits; Z86.711 Personal history of pulmonary embolism; Z87.891 Personal history of nicotine dependence; Z99.81 Dependence on supplemental oxygen; Z79.899 Other long term (current) drug therapy
CPT/HCPCS: 74176; 80048; 81001; 85025; 96374; 96375; 99285; A4216; J2405

== ENCOUNTER 2021-10-10 11:18 | Outpatient (CLI) | payer MEDICAID, SELFPAY ==
[2021-10-10 12:13] LABS: Absolute Lymphocyte Count 1.75 X10^3/uL (0.83-4.51); Absolute Neutrophil Count 4.3 X10^3/uL (2.0-7.7); Basophil# 0.04 X10^3/uL; Basophil% 0.6 % (0-1); Eosinophils% 1.5 % (0-5); Hematocrit 28.3 % (37-47); Hemoglobin 9.1 g/dL (12.0-15.0); International Normalized Ratio 1.1; Lymphocyte # 1.75 X10^3/ul (0.83-4.51); Lymphocyte % 26.4 % (19-41); Mean Corp Hgb Conc 32.2 g/dL (32-36); Mean Corpuscular Hgb 30.6 pg (27.0-32.0); Mean Corpuscular Volume 95.3 fL (81-99); Mean Platelet Vol. 11.5 fl (6.2-12.0); Monocyte# 0.45 X10^3/uL; Monocyte% 6.8 % (0-10); NRBC Flagged by Analyzer 0 % (0-5); Neutrophil # 4.26 X10^3/uL (2.7-7.7); Neutrophil % 64.2 % (47-70); Platelet Count 208 K/mm3 (150-450); Prothrombin Time (Protime)PT. 13.3 SECONDS (11.7-14.9); RBC Distribution Width SD 48.3 fl (35.1-43.9); RET-HE 32.1 pg (30-35); Red Blood Count 2.97 M/mm3 (4.2-5.4); White Blood Count 6.6 K/mm3 (4.4-11.0)
[2021-10-10 12:50] LABS: Ferritin 29 ng/mL (8-252); Iron 33 ug/dL (50-170); Iron Binding Capacity,Total 343 ug/dL (250-450); PERCENT IRON SATURATION 9.6 % (15.0-55.0)
[2021-10-11 09:26] LABS: Transferrin 255 mg/dL (192-364)
== END 2021-10-10 23:59 | disposition home or self-care (01) ==
LOC: LAB 11:19
PROVIDERS: PCP Internal Medicine; Referring Provider Nurse Practitioner Adult Health; Visit Provider Nurse Practitioner Adult Health
DX: D64.9 Anemia, unspecified (principal)
CPT/HCPCS: 36415; 82728; 83540; 83550; 84466; 85025; 85045; 85610

== ENCOUNTER 2021-10-17 09:22 | Outpatient (CLI) | payer MEDICAID, SELFPAY ==
--- NOTE | 2021-10-17 09:27 | US_ITS ---
STUDY: ABDOMINAL ULTRASOUND - ELASTOGRAPHY REASON FOR VISIT: Female, 55 years old. Fatty liver. TECHNIQUE: Liver stiffness measurements were obtained on a [employer] RS 85 ultrasound machine using a CA 1-7 probe following the SRU guidelines. 3 measurements were obtained using a 2-D-SWE method. The IQR/M was 21 % suggesting a quality data set. TECHNICAL QUALITY: Adequate. COMPARISON: Comparison is made with prior study done earlier today. FINDINGS: Liver: Heterogeneous echotexture of the liver parenchyma. Median liver stiffness measured 7 kPa. US/Elastography Parenchyma/Organ IMPRESSION: Liver stiffness measures 7 kPa compatible with F2-F3 (Mild to moderate liver fibrosis) Metavir score. Electronically Signed: Jason Coleman MD at 15:35 EDT ,
--- NOTE | 2021-10-17 09:36 | US_ITS ---
STUDY: ABDOMINAL ULTRASOUND - RIGHT UPPER QUADRANT REASON FOR VISIT: Female, 55 years old FATTY LIVER TECHNIQUE: Ultrasound evaluation of the right upper quadrant was performed with real-time and static kramer-scale imaging. TECHNICAL QUALITY: Limited. Examination limited due to a combination of factors including obesity and bowel gas. COMPARISON: Comparison is made with prior CT scan abdomen and pelvis dated 09/22/2021. FINDINGS: Liver: The liver measures 16.6 cm. There is a heterogeneous echogenicity of the liver. The bile ducts are within normal limits. There is hepatic color flow. The direction of portal flow is hepatopetal. There is no demonstrated mass lesion. Gallbladder: The patient is status post cholecystectomy. Common Bile Duct (C.B.D.): The common bile duct measures 10 mm. Pancreas: There is nonvisualization of the pancreas due to overlying bowel gas. There is normal echogenicity of the pancreas. There is no demonstrated pancreatic mass or cyst. Right Kidney: Normal size of the right kidney. The right kidney measures 9.6 cm x 5.5 cm x 4 cm. Normal renal cortex. The right cortex measures 1.0 cm. There is no demonstrated renal mass or cyst. There is no right hydronephrosis. US/Abdomen Limited IMPRESSION: Heterogeneous echotexture of the liver. The patient is status post cholecystectomy. Electronically Signed: Jason Coleman MD at 15:33 EDT ,
== END 2021-10-17 23:59 | disposition home or self-care (01) ==
LOC: US 09:23
PROVIDERS: PCP Internal Medicine; Referring Provider Nurse Practitioner Adult Health; Visit Provider Nurse Practitioner Adult Health
DX: K76.0 Fatty (change of) liver, not elsewhere classified (principal)
CPT/HCPCS: 76705; 76981

== ENCOUNTER 2021-10-26 13:34 | Outpatient (CLI) | payer MEDICAID, SELFPAY ==
[2021-10-26 14:59] LABS: Hematocrit 31.2 % (37-47); Hemoglobin 9.5 g/dL (12.0-15.0); Mean Corp Hgb Conc 30.4 g/dL (32-36); Mean Corpuscular Hgb 29.6 pg (27.0-32.0); Mean Corpuscular Volume 97.2 fL (81-99); Mean Platelet Vol. 10.8 fl (6.2-12.0); Platelet Count 272 K/mm3 (150-450); RBC Distribution Width CV 13.5 % (11.6-14.6); RBC Distribution Width SD 48.5 fl (35.1-43.9); Red Blood Count 3.21 M/mm3 (4.2-5.4); White Blood Count 5.5 K/mm3 (4.4-11.0)
[2021-10-26 15:27] LABS: AST(SGOT) 18 U/L (15-37); Alanine Aminotransfer ALT/SGPT 28 U/L (13-56); Albumin, Serum 3.9 g/dL (3.2-5.0); Alkaline Phosphatase 75 U/L (45-117); Anion Gap 2 (5-15); BUN 22 mg/dL (7-18); BUN/Creat Ratio 26.4 RATIO (10-20); Calcium,Total 9.3 mg/dL (8.5-10.1); Chloride 107 mmol/L (98-107); Creatinine, Serum 0.83 mg/dL (0.55-1.02); EST Glomerular Filtration Rate 75 mL/min (>60); Est Glom Filt Rate - Afr Amer 91 mL/min (>60); Ferritin 47 ng/mL (8-252); Globulin 3.9 g/dL (2.2-4.2); Glucose 113 mg/dL (74-106); Iron 61 ug/dL (50-170); Potassium 4.1 mmol/L (3.5-5.1); Protein, Total 7.8 g/dL (6.4-8.2); Sodium Level 136 mmol/L (136-145); Thyroid Stim Hormone (TSH) 1.22 uIU/mL (0.358-3.74)
[2021-11-08 10:09] LABS: Free Kappa Light Chains 25.5 mg/L (3.3-19.4); Free Lambda Light Chains 16.5 mg/L (5.7-26.3); Vitamin B1, Thiamine 131.9 nmol/L (66.5-200.0)
[2021-11-09 10:25] LABS: KEPPRA (LEVETIRACETAM) 14.9 ug/mL (10.0-40.0)
== END 2021-10-26 23:59 | disposition home or self-care (01) ==
PROVIDERS: PCP Internal Medicine; Referring Provider Psychiatry & Neurology Neurology; Visit Provider Psychiatry & Neurology Neurology
DX: G40.909 Epilepsy, unspecified, not intractable, without status epilepticus (principal); G62.9 Polyneuropathy, unspecified; Z86.2 Personal history of diseases of the blood and blood-forming organs and certain disorders involving the immune mechanism
CPT/HCPCS: 36415; 80053; 80177; 82140; 82728; 82746; 83540; 83883; 84425; 84443; 85027

== ENCOUNTER 2021-11-03 17:18 | Emergency (ER) | payer MEDICAID, SELFPAY ==
[2021-11-03 17:19] VITALS: BP 130/105; PULSE 109; RESP 18; TEMP 36.5; O2SAT 91; BMI 42.5
--- NOTE | 2021-11-03 17:49 | CT_ITS ---
STUDY: CT BRAIN WITHOUT CONTRAST REASON FOR EXAM: Female, 56 years old. Technologist Notes Other, SEIZURES,SHAKING,PT STATES SHE IS STARTING MED FOR ? [facility]''S ON SUNDAY HXlTIA,COPD,BREAST CANCER,HTN seizure TECHNIQUE: Transaxial CT imaging of the brain was performed without administration of intravenous contrast material. Individualized dose optimization techniques were used for this CT. COMPARISON: None FINDINGS: Normal calvarium. Normal soft tissues. Normal size ventricles and extra-axial spaces for the patient''s age. Normal white matter tracts of the cerebral hemispheres. Normal basal ganglia and thalami. Normal brainstem. Normal cerebellum. There is no intracranial hemorrhage. There are no findings of an acute ischemic infarction. Normal visualized paranasal sinuses. ASPECTS 10 CT/Brain/Head without Contrast IMPRESSION: There are no acute intracranial findings. Electronically Signed: Kin Verduzco MD at 19:17 EDT ,
[2021-11-03 18:06] LABS: Absolute Lymphocyte Count 1.84 X10^3/uL (0.83-4.51); Absolute Neutrophil Count 5.4 X10^3/uL (2.0-7.7); Basophil# 0.03 X10^3/uL; Basophil% 0.4 % (0-1); Eosinophil# 0.11 X10^3/uL; Eosinophils% 1.4 % (0-5); Hemoglobin 9.7 g/dL (12.0-15.0); Lymphocyte # 1.84 X10^3/ul (0.83-4.51); Lymphocyte % 22.8 % (19-41); Mean Corp Hgb Conc 32.3 g/dL (32-36); Mean Corpuscular Hgb 30.1 pg (27.0-32.0); Mean Corpuscular Volume 93.2 fL (81-99); Mean Platelet Vol. 10.9 fl (6.2-12.0); Monocyte# 0.62 X10^3/uL; Monocyte% 7.7 % (0-10); NRBC Flagged by Analyzer 0 % (0-5); Neutrophil # 5.44 X10^3/uL (2.7-7.7); Neutrophil % 67.5 % (47-70); Platelet Count 255 K/mm3 (150-450); RBC Distribution Width CV 13.2 % (11.6-14.6); RBC Distribution Width SD 45.4 fl (35.1-43.9); Red Blood Count 3.22 M/mm3 (4.2-5.4); White Blood Count 8.1 K/mm3 (4.4-11.0)
[2021-11-03 18:14] LABS: Anion Gap 5 (5-15); BUN 14 mg/dL (7-18); BUN/Creat Ratio 17.7 RATIO (10-20); Calcium,Total 9.4 mg/dL (8.5-10.1); Chloride 108 mmol/L (98-107); Creatinine, Serum 0.79 mg/dL (0.55-1.02); EST Glomerular Filtration Rate 80 mL/min (>60); Est Glom Filt Rate - Afr Amer 97 mL/min (>60); Estimated Creatinine Clearance 74.44 ml/min; Glucose 104 mg/dL (74-106); Potassium 3.8 mmol/L (3.5-5.1); Sodium Level 140 mmol/L (136-145)
[2021-11-03 18:19] VITALS: BP 133/111; PULSE 96; RESP 23; O2SAT 95
[2021-11-03 18:45] LABS: CPK Total, Creatine Kinase 59 U/L (26-192); Troponin-I HS < 3 pg/mL (3.0-54.0)
--- NOTE | 2021-11-03 18:45 | RAD_ITS ---
EXAM: XR RIGHT ANKLE, 2 VIEWS CLINICAL INDICATION: fall pt states fall today, right ankle pain, pt unable to flex right ankle TECHNIQUE: Frontal and lateral views of the right ankle. This report was created using [employer] report [employer] technology. COMPARISON: None. FINDINGS: BONES/JOINTS: There is an enthesophyte involving the posterior superior calcaneus at the site of insertion of the Achilles tendon. No acute fracture. No subluxation. Normal alignment. Preservation of the joint space. No sclerotic or destructive changes observed. SOFT TISSUES: Unremarkable. No soft tissue swelling or gas. No radiopaque foreign body. RAD/Ankle 2 Views IMPRESSION: No acute findings in the right ankle. Electronically Signed: Kin Verduzco MD at 19:06 EDT Reading Location ID and State: [facility] / [place] , Service support ,
--- NOTE | 2021-11-03 18:55 | EDS_ITS ---
HPI <WILLIAM Love - Last Filed: 11/03/21 19:38> History of Present Illness Chief Complaint: Seizure Narrative Narrative: Patient is a 56-year-old female with history of COPD, epilepsy, hypoxic brain injury, currently getting work-up for Parkinson's presents to the emergency department after which she describes of having a seizure. Patient lives at home alone, patient states she was going in the kitchen and then she woke up on the floor. Patient complains of pain to the right ankle, headache. Patient's last epileptic seizure was 7 years ago. Patient is currently on Keppra 500 mg twice a day, she saw her neurologist 3 days ago and is currently being worked up for Parkinson's disease secondary to this jerking that she does sit March 2021. Patient denies any fevers chills nausea vomiting patient arrives alert and orient x4 PFSH <WILLIAM Love - Last Filed: 11/03/21 19:38> [facility] Medical History (Updated 11/03/21 @ 19:[address] Burak Cornelius MD) Abnormal cardiac enzyme level Acute and chronic respiratory failure Acute respiratory failure with hypoxia and hypercapnia LEIGH ANN (acute kidney injury) Anemia Anemia Anxiety and depression Back pain Bilateral peripheral pulmonary emboli BiPAP (biphasic positive airway pressure) dependence Breast infection Cancer Cardiac arrest Cardiology follow-up encounter Cardiopulmonary arrest with successful resuscitation Chest pain Chronic anemia Chronic narcotic dependence Compression fracture of T5 vertebra Compression fracture of T6 vertebra Congestive heart failure COPD (chronic obstructive pulmonary disease) COPD exacerbation Coronary artery disease CPAP (continuous positive airway pressure) dependence Debility Dependence on continuous supplemental oxygen Depression Diastolic dysfunction DVT (deep vein thrombosis) in DVT (deep venous thrombosis) Essential hypertension Fall Former smoker GERD (gastroesophageal reflux disease) HLD (hyperlipidemia) Hx of cardiovascular stress test Hx of echocardiogram Hypertension Hypothyroidism Morbid obesity MSSA (methicillin susceptible Staphylococcus aureus) pneumonia Myocardial infarct Obesity On home oxygen therapy STEPHANIE (obstructive sleep apnea) Pulmonary embolism Restrictive lung disease Right rib fracture Seizure disorder Seizures Sleep apnea SOB (shortness of breath) Syncope and collapse TIA (transient ischemic attack) TIA (transient ischemic attack) Wears dentures Wears glasses Home Medications albuterol sulfate 90 mcg/actuation aerosol inhaler 2 puff INHALATION Q4H PRN g 08/01/17 [History Last Taken 03/03/18] venlafaxine 75 mg capsule,extended release 24 hr 75 mg PO DAILY 03/02/21 [History Last Taken 08/25/21] Dulera 2 puff INHALATION Q12H PRN 03/15/21 [History Last Taken Unknown] venlafaxine 37.5 mg PO DAILY 04/25/21 [History Last Taken 08/25/21] clonazepam 1 mg PO BID 05/09/21 [History Last Taken 08/25/21] food supplemt, lactose-reduced 118 ml PO DAILY ml 05/24/21 [History Last Taken 08/25/21] atorvastatin 80 mg PO QHS 08/26/21 [History Last Taken 08/25/21] mirtazapine 7.5 mg PO QHS 08/26/21 [History Last Taken Unknown] furosemide [Lasix] 20 mg PO DAILY PRN #30 tab 08/31/21 [Rx Last Taken 08/25/21] metoprolol succinate 100 mg PO DAILY #0 tab 08/31/21 [Rx Last Taken 08/25/21] pantoprazole [Protonix] 40 mg PO BID #60 ea 08/31/21 [Rx Last Taken Unknown] spironolactone 50 mg PO DAILY #0 tab 08/31/21 [Rx Last Taken 08/25/21] tizanidine 4 mg PO Q8H PRN #15 tab 09/22/21 [Rx Last Taken Unknown] carbidopa 25 mg-levodopa 100 mg tablet See Rx Instructions .ROUTE .COMPLEX #90 tab 10/31/21 [Rx Last Taken Unknown] levetiracetam 500 mg tablet 500 mg PO BID #60 tab 10/31/21 [Rx Last Taken Unknown] losartan 100 mg PO DAILY 11/03/21 [History Last Taken Unknown] nitrofurantoin monohyd/m-cryst 100 mg PO Q12 #14 capsule 11/03/21 [Rx Last Taken Unknown] Allergy/AdvReac Type Severity Reaction Status Date / Time aspirin Allergy Hives Verified 11/03/21 17:23 dicyclomine Allergy Itching Verified 11/03/21 17:23 ibuprofen Allergy Hives Verified 11/03/21 17:23 ketorolac tromethamine Allergy Angioedema Verified 11/03/21 17:23 [From Toradol] meperidine HCl [From Demerol] Allergy seizures Verified 11/03/21 17:23 nitroglycerin Allergy Angioedema Verified 11/03/21 17:23 nut - unspecified Allergy Hives Verified 11/03/21 17:23 Penicillins [PCN] Allergy Hives Verified 11/03/21 17:23 tramadol HCl [From Ultram] Allergy Angioedema Verified 11/03/21 17:23 Family History Brother Myocardial infarction Asthma Mental disorder Psychiatric care Suicide attempt Father Colon cancer Brother Mental disorder Aunt Parkinson disease Sister Breast cancer Cervical cancer Ovarian cancer Sister Cervical cancer Ovarian cancer Mother Cancer History of blood clots Hypertension Surgical History History of appendectomy History of cholecystectomy History of cholecystectomy History of hysterectomy History of left breast biopsy History of left heart catheterization (LHC) (~04/22/21) Hx of appendectomy S/P lumpectomy, left breast Social History household members: none Smoking Status: Former smoker quit date: 01/21/16 pack-years: 32 second hand exposure: Yes alcohol intake: never substance use type: does not use ROS <WILLIAM Love - Last Filed: 11/03/21 19:38> ROS ED ROS Narrative Constitutional: Negative for fever, chills, weight loss, weakness Eyes: Negative for vision loss, vision change, double vision ENT: Negative for any sore throat, ear pain, congestion Cardiovascular: Negative for any chest pain, tightness, palpitations, racing heartbeat Respiratory: Negative for any cough, sputum production, hemoptysis, shortness of breath, shortness of breath on exertion, orthopnea Gastrointestinal: Negative for any abdominal pain, nausea, vomiting, diarrhea, constipation, blood in stool, blood in vomit : Negative for any urinary frequency, incontinence, dysuria, retention, blood in urine Muscle skeletal: Negative for any muscle joint pain, stiffness, myalgias, arthralgias, neck pain, back pain. Positive for right ankle pain Neurological: Negative for any dizziness, syncope, numbness or tingling. Positive for seizure, headache Skin: Negative for any rashes, lumps, itching, abrasions, lacerations Psychiatric: Negative for any depression, anxiety, stress, suicidal ideation, homicidal ideation Hematologic: Negative for any easy bruising, excessive bruising, easy bleeding Allergies: Negative for any eczema, hives, rash EXAM <WILLIAM Love - Last Filed: 11/03/21 19:38> Physical Exam Narrative Exam Narrative: Vital signs reviewed. Patient is alert and orient x4, patient has muscle jerking episodes that occur every couple seconds, patient states this has been ongoing since April 2021, she is currently getting worked up for this. HEET: Head normocephalic atraumatic, TMs clear bilaterally. Posterior pharynx is clear, moist mucous membranes. Nares clear bilaterally. Neck: Supple with no lymphadenopathy or tenderness. No signs of meningismus, negative jolt sign. Cardiac: Regular rate and rhythm no murmurs gallops or rubs, equal peripheral pulses bilaterally. Respiratory: Lungs clear to auscultation bilaterally. No chest tenderness. Abdomen: Soft, nontender, nondistended. No abdominal bruit or pulsatile masses. No hepatosplenomegaly Extremities: No peripheral edema, no signs of gross trauma or deformity. Active full range of motion of all extremities. Patient has equal strength in all extremities however she does jerk all extremities every few seconds Neuro: Cranial nerves II through XII intact, no focal neurological deficits. Skin: Clean dry and intact with no rash, purpura, petechiae, vesicles or pustules. Backslash flank: No CVA tenderness, no midline spinal tenderness, no deformity. Psych: Normal mood and affect. No SI, HI or acute psychosis. Const Vital Signs: 11/03/21 17:19 11/03/21 18:19 11/03/21 19:02 Temperature 97.7 F L Temperature Source Temporal Pulse Rate 109 H 96 106 H Respiratory Rate 18 23 H 22 H Blood Pressure 130/105 H 133/111 H 98/80 Blood Pressure Mean 113 118 86 Pulse Ox 91 95 98 Oxygen Delivery Method Room Air Room Air Oxygen Flow Rate (L/min) 11/03/21 19:16 Temperature Temperature Source Pulse Rate Respiratory Rate Blood Pressure 109/81 H Blood Pressure Mean 90 Pulse Ox 97 Oxygen Delivery Method Nasal Cannula Oxygen Flow Rate (L/min) 2 Positive well nourished, well developed and obese General Appearance ED: well developed Nutritional Appearance: obese Neuro oriented x3 and CN's II-XII intact bilaterally Sensorium / Orientation: alert Motor Exam: strength 5/5 throughout <Dr. Burak Cornelius MD - Last Filed: 11/03/21 20:05> Physical Exam Const Vital Signs: 11/03/21 17:19 11/03/21 18:19 11/03/21 19:02 Temperature 97.7 F L Temperature Source Temporal Pulse Rate 109 H 96 106 H Respiratory Rate 18 23 H 22 H Blood Pressure 130/105 H 133/111 H 98/80 Blood Pressure Mean 113 118 86 Pulse Ox 91 95 98 Oxygen Delivery Method Room Air Room Air Oxygen Flow Rate (L/min) 11/03/21 19:16 Temperature Temperature Source Pulse Rate Respiratory Rate Blood Pressure 109/81 H Blood Pressure Mean 90 Pulse Ox 97 Oxygen Delivery Method Nasal Cannula Oxygen Flow Rate (L/min) 2 MDM <WILLIAM Love - Last Filed: 11/03/21 19:38> MDM MDM Narrative Medical decision making narrative: Patient appears well, patient appears nontoxic, vital signs are stable. Patient presents the emergency department with unknown loss of consciousness possible seizure. Patient did receive a full examination here, patient's x-ray of the right ankle shows no acute findings of the right ankle. Patient did receive a CT scan of the brain. Patient received basic laboratory values, patient was slightly anemic however this is baseline for the patient, patient's troponin was negative, EKG was unremarkable. Patient did receive a CT scan of the brain as well as urinalysis, she is currently on Keppra 500 mg twice a day, she states that she has not missed any doses. Lab Data Labs: Laboratory Results - last 24 hr 11/03/21 11/03/21 11/03/21 17:22 17:22 17:22 WBC 8.1 RBC 3.22 L Hgb 9.7 L Hct 30.0 L MCV 93.2 MCH 30.1 MCHC 32.3 RDW Std Deviation 45.4 H RDW Coeff of Immanuel 13.2 Plt Count 255 MPV 10.9 Immature Gran % (Auto) 0.200 Neut % (Auto) 67.5 Lymph % (Auto) 22.8 Brantley % (Auto) 7.7 Eos % (Auto) 1.4 Baso % (Auto) 0.4 Absolute Neuts (auto) 5.4 Absolute Lymphs (auto) 1.84 Nucleated RBC % 0 Sodium 140 Potassium 3.8 Chloride 108 H Carbon Dioxide 27.0 Anion Gap 5 BUN 14 Creatinine 0.79 Estim Creat Clear Calc 74.44 Est GFR (MDRD) Af Amer 97 Est GFR (MDRD) Non-Af 80 BUN/Creatinine Ratio 17.7 Glucose 104 Calcium 9.4 Total Creatine Kinase 59 Troponin I High Sens < 3 L Urine Color Urine Clarity Urine pH Ur Specific [place] Urine Protein Urine Glucose (UA) Urine Ketones Urine Occult Blood Urine Nitrite Urine Bilirubin Urine Urobilinogen Ur Leukocyte Esterase 11/03/21 19:13 WBC RBC Hgb Hct MCV MCH MCHC RDW Std Deviation RDW Coeff of Immanuel Plt Count MPV Immature Gran % (Auto) Neut % (Auto) Lymph % (Auto) Brantley % (Auto) Eos % (Auto) Baso % (Auto) Absolute Neuts (auto) Absolute Lymphs (auto) Nucleated RBC % Sodium Potassium Chloride Carbon Dioxide Anion Gap BUN Creatinine Estim Creat Clear Calc Est GFR (MDRD) Af Amer Est GFR (MDRD) Non-Af BUN/Creatinine Ratio Glucose Calcium Total Creatine Kinase Troponin I High Sens Urine Color Yellow Urine Clarity Cloudy Urine pH 5.0 Ur Specific [place] 1.020 Urine Protein 15 H Urine Glucose (UA) Normal Urine Ketones 5 H Urine Occult Blood 25 H Urine Nitrite Positive H Urine Bilirubin Negative Urine Urobilinogen Normal Ur Leukocyte Esterase 100 H Radiography Diagnostic Testing: Clinical Impression(s) from Imaging Studies Brain CT 11/03/21 17:49 IMPRESSION: There are no acute intracranial findings. Electronically Signed: Kin Verduzco MD at 19:17 EDT , Ankle X-Ray 11/03/21 18:45 IMPRESSION: No acute findings in the right ankle. Electronically Signed: Kin Verduzco MD at 19:06 EDT , <Dr. Burak Cornelius MD - Last Filed: 11/03/21 20:05> MDM MDM Narrative Medical decision making narrative: Seen and evaluated independently and in conjunction with nurse practitioner. Agree with notes above unless documented otherwise. Patient presents for a seizure that was apparently witnessed by [id number]. Patient was amnestic for the event. She denies any fall/injury except for her right ankle which she thinks maybe she hit against the bed or a nearby piece of furniture. She is wheelchair-bound, transfers on her own and lives alone. 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 The seizure is the first breakthrough she has had in about 7 years. When asked about other symptoms on review of systems, she does admit to some recent dysuria that alfaro. She denies any abdominal pain, nausea, vomiting, fevers, back pain with this. No hematuria. Her lungs are clear to auscultation throughout, heart is regular, no murmurs, no tachycardia. Her abdomen is benign. No CVA tenderness. Her urine does show infection and the rest of her work-up is negative including an right ankle x-ray and CT of the head. She had no further seizure activity here in the emergency department. She has allergies to penicillin, and medication interactions to sul fa. We will start her on Macrobid after urine culture was sent, she will be discharged home on Macrobid, she was given her nighttime dose of levetiracetam prior to being brought to the emergency department, I gave her another dose of 500 mg, and I think if she continues her usual Keppra dosing until she follows up I think that would be reasonable. Discussed with her she is comfortable with that plan going home. Lab Data Attestation: I reviewed the patient's lab results. Labs: Laboratory Results - last 24 hr 11/03/21 11/03/21 11/03/21 17:22 17:22 17:22 WBC 8.1 RBC 3.22 L Hgb 9.7 L Hct 30.0 L MCV 93.2 MCH 30.1 MCHC 32.3 RDW Std Deviation 45.4 H RDW Coeff of Immanuel 13.2 Plt Count 255 MPV 10.9 Immature Gran % (Auto) 0.200 Neut % (Auto) 67.5 Lymph % (Auto) 22.8 Brantley % (Auto) 7.7 Eos % (Auto) 1.4 Baso % (Auto) 0.4 Absolute Neuts (auto) 5.4 Absolute Lymphs (auto) 1.84 Nucleated RBC % 0 Sodium 140 Potassium 3.8 Chloride 108 H Carbon Dioxide 27.0 Anion Gap 5 BUN 14 Creatinine 0.79 Estim Creat Clear Calc 74.44 Est GFR (MDRD) Af Amer 97 Est GFR (MDRD) Non-Af 80 BUN/Creatinine Ratio 17.7 Glucose 104 Calcium 9.4 Total Creatine Kinase 59 Troponin I High Sens < 3 L Urine Color Urine Clarity Urine pH Ur Specific [place] Urine Protein Urine Glucose (UA) Urine Ketones Urine Occult Blood Urine Nitrite Urine Bilirubin Urine Urobilinogen Ur Leukocyte Esterase 11/03/21 19:13 WBC RBC Hgb Hct MCV MCH MCHC RDW Std Deviation RDW Coeff of Immanuel Plt Count MPV Immature Gran % (Auto) Neut % (Auto) Lymph % (Auto) Br[place]ley % (Auto) Eos % (Auto) Baso % (Auto) Absolute Neuts (auto) Absolute Lymphs (auto) Nucleated RBC % Sodium Potassium Chloride Carbon Dioxide Anion Gap BUN Creatinine Estim Creat Clear Calc Est GFR (MDRD) Af Amer Est GFR (MDRD) Non-Af BUN/Creatinine Ratio Glucose Calcium Total Creatine Kinase Troponin I High Sens Urine Color Yellow Urine Clarity Cloudy Urine pH 5.0 Ur Specific [place] 1.020 Urine Protein 15 H Urine Glucose (UA) Normal Urine Ketones 5 H Urine Occult Blood 25 H Urine Nitrite Positive H Urine Bilirubin Negative Urine Urobilinogen Normal Ur Leukocyte Esterase 100 H Radiography Diagnostic Testing: Clinical Impression(s) from Imaging Studies Brain CT 11/03/21 17:49 IMPRESSION: There are no acute intracranial findings. Electronically Signed: Kin Verduzco MD at 19:17 EDT , Ankle X-Ray 11/03/21 18:45 IMPRESSION: No acute findings in the right ankle. Electronically Signed: Kin Verduzco MD at 19:06 EDT , Discharge Plan Triage Chief Complaint: Seizure ED Midlevel Provider: Kee Martinez ED Provider: Burak Cornelius Dx/Rx/DC Orders Clinical Impression: Breakthrough seizure, Epilepsy, Urinary tract infection, Myoclonus Instructions: ED Seizure, Recurrent (Adult), ED CYSTITIS Female Adult Prescriptions: New nitrofurantoin monohyd/m-cryst [nitrofurantoin monohyd/m-cryst] 100 MG capsule 100 mg PO Q12 Qty: 14 RF: 0 No Action albuterol sulfate [ProAir HFA] 90 mcg/actuation HFA aerosol inhaler 2 puff INHALATION Q4H PRN (Reason: shortness of breath or wheezing) RF: 0 venlafaxine 75 mg capsule,extended release 24hr 75 mg PO DAILY RF: 0 Ensure Compact Liquid 118 ml PO DAILY RF: 0 levetiracetam 500 mg tablet 500 mg PO BID Qty: 60 RF: 1 carbidopa-levodopa [Sinemet] 25-100 mg tablet See Rx Instructions .Route .COMPLEX Qty: 90 RF: 1 Dulera 100-5 mcg/actuation Hfa Aerosol Inhaler 2 puff INHALATION Q12H PRN (Reason: sob) RF: 0 venlafaxine 37.5 mg capsule,extended release 24hr 37.5 mg PO DAILY RF: 0 clonazepam 1 mg tablet 1 mg PO BID RF: 0 atorvastatin 80 mg tablet 80 mg PO QHS RF: 0 mirtazapine 7.5 mg tablet 7.5 mg PO QHS RF: 0 pantoprazole [Protonix] [address] for susp in packet 40 mg PO BID Qty: 60 RF: 1 metoprolol succinate 100 mg tablet extended release 24 hr 100 mg PO DAILY Qty: 0 RF: 0 furosemide [Lasix] 20 mg tablet 20 mg PO DAILY PRN (Reason: leg swelling) Qty: 30 RF: 0 spironolactone 50 mg tablet 50 mg PO DAILY Qty: 0 RF: 0 tizanidine 4 mg tablet 4 mg PO Q8H PRN (Reason: muscle spasticity) Qty: 15 RF: 0 losartan 25 mg tablet 100 mg PO DAILY RF: 0 Primary Care Provider: Alvarez Montanez Referrals: Chapincito Castro MD [STAFF PHYSICIAN] - 3-5 Days (Call for appointment for follow-up regarding breakthrough seizure) Alvarez Montanez MD [Primary Care Provider] - 3-5 Days (For reevaluation and review of culture results) Activity Restrictions/Additional Instructions: You were given an extra dose of your Keppra tonight. Continue your usually prescribed dosing until you follow-up with your neurologist. Take the antibiotic until completely gone as prescribed. Disposition Disposition: Home, Self Care
[2021-11-03 19:02] VITALS: BP 98/80; PULSE 106; RESP 22; O2SAT 98
[2021-11-03 19:16] VITALS: BP 109/81; O2SAT 97
[2021-11-03 19:17] LABS: Red Blood Cells-Urine 0 SEEN /hpf (0-5); Squamous Epithelial Cells - UA 0 SEEN /hpf (5-10)
[2021-11-03 19:42] LABS: Color, Urine Yellow (Yellow); Glucose, Dipstick Normal (Normal); Ketone-Dipstick 5 mg/dl (Negative); Leukocyte Esterase-Dipstick 100 /ul (Negative); Nitrite-Dipstick Positive (Negative); Occult Blood-Urine 25 /ul (Negative); Protein-Dipstick 15 mg/dl (Negative); Urine Bilirubin Dipstick Negative (Negative); Urine Clarity Cloudy (Clear); Urine Urobilinogen Normal (Normal)
[2021-11-03 20:03] LABS: Bacteria 4+ /hpf (None Seen); White Blood Cells 25-50 SEEN /hpf (0-5)
[2021-11-03 20:04] LABS: Mucous, Urine RARE /hpf (<or=2+)
[2021-11-03] MEDS: Nitrofurantoin Macrocrystals 100 MG Capsule PO (20:24)
[2021-11-03] MEDS: levETIRAcetam 500 MG Tablet PO (20:24)
[2021-11-03] MEDS: Acetaminophen 500 MG Tablet 1000 MG PO (20:44)
[2021-11-03 20:53] VITALS: BP 110/69; PULSE 94; O2SAT 96
[2021-11-03 20:54] VITALS: BP 110/69; PULSE 99; RESP 20
== END 2021-11-03 21:16 | disposition home or self-care (01) ==
PROVIDERS: Nurse Practitioner; Emergency Provider Emergency Medicine; PCP Internal Medicine; Visit Provider Emergency Medicine
DX: G40.909 Epilepsy, unspecified, not intractable, without status epilepticus (principal); J44.9 Chronic obstructive pulmonary disease, unspecified; I11.0 Hypertensive heart disease with heart failure; I50.9 Heart failure, unspecified; N39.0 Urinary tract infection, site not specified; M25.571 Pain in right ankle and joints of right foot; R51.9 Headache, unspecified; Z99.3 Dependence on wheelchair; D64.9 Anemia, unspecified; I25.10 Atherosclerotic heart disease of native coronary artery without angina pectoris; E78.5 Hyperlipidemia, unspecified; Z87.891 Personal history of nicotine dependence
CPT/HCPCS: 70450; 73600; 80048; 81001; 82550; 84484; 85025; 87077; 87086; 87088; 87186; 99285; A4216

== ENCOUNTER → 2021-12-12 | Outpatient (CLI) | payer MEDICAID, SELFPAY ==
[2021-12-12 19:39] LABS: Vitamin B12 436 pg/mL (211-911)
== END | disposition home or self-care (01) ==
LOC: MTLAB 16:31
PROVIDERS: PCP Internal Medicine; Referring Provider Psychiatry & Neurology Neurology; Visit Provider Psychiatry & Neurology Neurology
DX: G62.9 Polyneuropathy, unspecified (principal)
CPT/HCPCS: 86335; 36415; 82607; 82784; 84165; 86334

== ENCOUNTER 2021-12-14 13:19 | Emergency (ER) | payer MEDICAID, SELFPAY ==
[2021-12-14 13:20] VITALS: BP 100/64; PULSE 71; RESP 22; TEMP 37.2; O2SAT 91; BMI 39.9
--- NOTE | 2021-12-14 13:38 | CT_ITS ---
INDICATION: Kidney Stone EXAMINATION: CT ABDOMEN AND PELVIS WITHOUT CONTRAST - CT Abdomen And Pelvis W/O Contrast Injection TECHNIQUE: Helically acquired images were obtained of the abdomen and pelvis without oral or IV contrast. A radiation dose optimization technique was used for this scan. IV Contrast dosage and agent: None. Oral contrast: None. COMPARISON: CT abdomen and pelvis without contrast from 09/22/2021. FINDINGS: Lower thorax: Extensive motion artifact in the lung bases. Diffuse groundglass opacities in the visualized lung bases felt largely to relate to motion artifact. Dependent atelectasis. Stable cardiomegaly. Liver: Unremarkable unenhanced appearance. Gallbladder: Status post cholecystectomy. Prominence of the common bile duct secondary to postcholecystectomy state. Spleen: Unremarkable unenhanced appearance. Pancreas: No duct dilation. No acute findings. Adrenal glands: Unremarkable. Kidneys: Similar appearance of the right kidney which is mildly atrophic when compared to the left. Stable bilateral renal cysts. No nephrolithiasis. No hydronephrosis. Bladder: Underdistended but no acute findings. GI tract: No significant bowel dilation. Normal appendix. No acute findings. Peritoneum/mesentery/retroperitoneum: No free air or free fluid. No lymphadenopathy. Pelvis: No free air or free fluid. No lymphadenopathy. Vasculature: No abdominal aortic or iliac aneurysm. Bones/soft tissues: No acute fracture or subluxation. No destructive osseous lesions. Soft tissues are unremarkable. CT/Abdomen/Pelvis without Cont IMPRESSION: 1. No acute intra-abdominal findings. 2. Stable asymmetrically mildly atrophic right kidney. No obstructive uropathy. Electronically Signed: Ramiro Coburn, at 14:37 EDT ,
--- NOTE | 2021-12-14 13:41 | EDS_ITS ---
HPI History of Present Illness Chief Complaint: Flank Pain Detail of Chief Complaint: Abrupt onset of left flank pain with hematuria Informant: patient Onset/Context/Timing Onset: Hours Context: Sudden Onset Timing: Continuous and Waxes and wanes Quality: Pain Location: Left flank Current Severity: Moderate Maximum Severity: Severe Worsened by: Nothing Relieved by: Nothing Associated Symptoms Associated Symptoms: Nausea and hematuria Narrative Narrative: Patient is 56-year-old woman with chronic respiratory failure due to COPD on home oxygen by nasal cannula who presents with abrupt onset of left flank pain. She noted blood in her urine. She denies dysuria or frequency. She does complain of subjective fever with chills. She states she has had prior kidney stones and prior kidney infections. She denies HEENT, cardiac or respiratory symptoms. She denies vomiting or diarrhea. She denies rash. Prior similar symptoms: Yes Recent Illness/Hospitalization: No PFSH PFS Medical History Abnormal cardiac enzyme level Acute and chronic respiratory failure Acute respiratory failure with hypoxia and hypercapnia LEIGH ANN (acute kidney injury) Anemia Anemia Anxiety and depression Back pain Bilateral peripheral pulmonary emboli BiPAP (biphasic positive airway pressure) dependence Breast infection Cancer Cardiac arrest Cardiology follow-up encounter Cardiopulmonary arrest with successful resuscitation Chest pain Chronic anemia Chronic narcotic dependence Compression fracture of T5 vertebra Compression fracture of T6 vertebra Congestive heart failure COPD (chronic obstructive pulmonary disease) COPD exacerbation Coronary artery disease CPAP (continuous positive airway pressure) dependence Debility Dependence on continuous supplemental oxygen Depression Diastolic dysfunction DVT (deep vein thrombosis) in DVT (deep venous thrombosis) Essential hypertension Fall Former smoker GERD (gastroesophageal reflux disease) HLD (hyperlipidemia) Hx of cardiovascular stress test Hx of echocardiogram Hypertension Hypothyroidism Morbid obesity MSSA (methicillin susceptible Staphylococcus aureus) pneumonia Myocardial infarct Obesity On home oxygen therapy STEPHANIE (obstructive sleep apnea) Pulmonary embolism Restrictive lung disease Right rib fracture Seizure disorder Seizures Sleep apnea SOB (shortness of breath) Syncope and collapse TIA (transient ischemic attack) TIA (transient ischemic attack) Wears dentures Wears glasses Home Medications albuterol sulfate 90 mcg/actuation aerosol inhaler 2 puff INHALATION Q4H PRN g 08/01/17 [History Last Taken 03/03/18] venlafaxine 75 mg capsule,extended release 24 hr 75 mg PO DAILY 03/02/21 [History Last Taken 08/25/21] Dulera 2 puff INHALATION Q12H PRN 03/15/21 [History Last Taken Unknown] venlafaxine 37.5 mg PO DAILY 04/25/21 [History Last Taken 08/25/21] clonazepam 1 mg PO BID 05/09/21 [History Last Taken 08/25/21] food supplemt, lactose-reduced 118 ml PO DAILY ml 05/24/21 [History Last Taken 08/25/21] atorvastatin 80 mg PO QHS 08/26/21 [History Last Taken 08/25/21] mirtazapine 7.5 mg PO QHS 08/26/21 [History Last Taken Unknown] furosemide [Lasix] 20 mg PO DAILY PRN #30 tab 08/31/21 [Rx Last Taken 08/25/21] metoprolol succinate 100 mg PO DAILY #0 tab 08/31/21 [Rx Last Taken 08/25/21] spironolactone 50 mg PO DAILY #0 tab 08/31/21 [Rx Last Taken 08/25/21] tizanidine 4 mg PO Q8H PRN #15 tab 09/22/21 [Rx Last Taken Unknown] losartan 100 mg PO DAILY 11/03/21 [History Last Taken Unknown] nitrofurantoin monohyd/m-cryst 100 mg PO Q12 #14 capsule 11/03/21 [Rx Last Taken Unknown] carbidopa ER 50 mg-levodopa 200 mg tablet,extended release See Rx Instructions .ROUTE .COMPLEX #90 tab 12/12/21 [Rx Last Taken Unknown] levetiracetam 500 mg tablet 500 mg PO BID #30 tab 12/12/21 [Rx Last Taken Unknown] sulfamethoxazole-trimethoprim 1 tab PO BID #20 tablet 12/14/21 [Rx Last Taken Unknown] Allergy/AdvReac Type Severity Reaction Status Date / Time aspirin Allergy Hives Verified 12/14/21 13:20 dicyclomine Allergy Itching Verified 12/14/21 13:20 ibuprofen Allergy Hives Verified 12/14/21 13:20 ketorolac tromethamine Allergy Angioedema Verified 12/14/21 13:20 [From Toradol] meperidine HCl [From Demerol] Allergy seizures Verified 12/14/21 13:20 nitroglycerin Allergy Angioedema Verified 12/14/21 13:20 nut - unspecified Allergy Hives Verified 12/14/21 13:20 Penicillins [PCN] Allergy Hives Verified 12/14/21 13:20 tramadol HCl [From Ultram] Allergy Angioedema Verified 12/14/21 13:20 Family History Brother Myocardial infarction Asthma Mental disorder Psychiatric care Suicide attempt Father Colon cancer Brother Mental disorder Aunt Parkinson disease Sister Breast cancer Cervical cancer Ovarian cancer Sister Cervical cancer Ovarian cancer Mother Cancer History of blood clots Hypertension Surgical History History of appendectomy History of cardiac catheterization History of cholecystectomy History of cholecystectomy History of esophagogastroduodenoscopy (EGD) History of hysterectomy History of left breast biopsy History of left heart catheterization (LHC) (~04/22/21) History of lumpectomy of left breast Hx of appendectomy S/P lumpectomy, left breast Social History household members: none Smoking Status: Former smoker quit date: 01/21/16 pack-years: 32 second hand exposure: Yes alcohol intake: never substance use type: does not use ROS ROS ED Constitutional Constitutional ED: Reports chills, fever(s) and subjective; Denies sweats or weight loss Eyes Eyes: Denies blurry vision, change in vision or diplopia ENT ENT ED: Denies ear pain, rhinorrhea or sore throat Cardiovascular Cardiovascular: Denies chest pain, orthopnea, palpitations, paroxysmal nocturnal dyspnea or racing heartbeat Respiratory/Chest Respiratory/Chest: Reports cough, dyspnea and dyspnea on exertion; Denies orthopnea, paroxysmal nocturnal dyspnea or sputum Gastrointestinal Gastrointestinal: Reports nausea; Denies abdominal pain, constipation, diarrhea, melena or vomiting Genitourinary Genitourinary ED: Reports hematuria; Denies dysuria or urinary frequency Musculoskeletal Musculoskeletal: Reports back pain; Denies arthralgias, myalgias or neck pain Integumentary Denies abscess, Abrasions or rash Neurologic Neurologic: Denies headache(s), paresthesias or weakness Psychiatric Psychiatric: Reports depression; Denies suicidal thoughts Endocrine Endocrinology: Denies polydipsia, polyphagia or polyuria EXAM Physical Exam Const Vital Signs: 12/14/21 13:20 12/14/21 14:39 Temperature 99 F 97.9 F Temperature Source Temporal Oral Pulse Rate 71 64 Respiratory Rate 22 H 19 H Blood Pressure 100/64 103/62 Blood Pressure Mean 76 75 Pulse Ox 91 99 Oxygen Delivery Method Nasal Cannula Room Air Oxygen Flow Rate (L/min) 3 Positive well nourished and well developed General Appearance ED: well developed, pallor and other Patient appears uncomfortable. She appears pale. ; Negative for cyanotic, diaphoretic or NAD HEENT Reports moist mucous membranes; Denies dry mucous membranes HEENT Narrative: Ears normal. Nares patent. Uvula midline. There is no erythema or exudate. Negative for trauma or tenderness Mouth ED: No dry mucous membranes Mouth: No dry mucous membranes Eyes PERRL and EOMs intact bilaterally General Eye ED: Negative for scleral icterus Neck no lymphadenopathy, supple and no JVD Resp normal respiratory effort and clear to auscultation bilaterally Cardio regular rate, regular rhythm, S1 normal heart sound, S2 normal heart sound and no murmurs GI normal to inspection, nondistended, normoactive bowel sounds, non-tender and non-distended Palpation: soft Back/Spine General Back: CVA tenderness left Cervical Spine: Negative for cervical spine tenderness Thoracic Spine / Upper Back: Negative for thoracic spinal tenderness or paraspinal muscle tenderness Extremity normal to inspection General Extremety ED: Negative for edema or tenderness General Extremity: Negative for edema Neuro oriented x3, CN's II-XII intact bilaterally and no sensory deficits noted Sensorium / Orientation: alert Motor Exam: strength 5/5 throughout Psych Negative for mental status grossly normal Mood & Affect: depressed Skin no rashes or lesions noted and no wounds General Skin Exam: pallor; Negative for jaundice MDM MDM MDM Narrative Medical decision making narrative: Abrupt onset of flank pain and hematuria suspect obstructing stone. Will need to rule out urinary tract infection. Blood work was obtained to assess renal function, rule out anemia and white count. Since she has angioedema to Toradol she was treated with morphine which she has had in the past. Lab Data Attestation: I reviewed the patient's lab results. Lab results narrative: Count is slightly elevated was nonspecific. Macro urinalysis reveals occult blood and leukoesterase negative nitrites. Basic metabolic panel reveals a creatinine of 1.12 with a GFR 54. CT reveals no renal calculi. There is no hydroureter hydronephrosis noted. There are phleboliths noted on the pelvis portion. Awaiting formal read by radiologist Labs: Laboratory Results - last 24 hr 12/14/21 12/14/21 12/14/21 13:50 13:50 13:50 WBC 11.4 H RBC 2.99 L Hgb 8.5 L Hct 28.3 L MCV 94.6 MCH 28.4 MCHC 30.0 L RDW Std Deviation 47.5 H RDW Coeff of Immanuel 13.9 Plt Count 341 MPV 10.6 Immature Gran % (Auto) 0.400 Neut % (Auto) 72.1 H Lymph % (Auto) 20.3 [place] % (Auto) 5.0 Eos % (Auto) 1.8 Baso % (Auto) 0.4 Absolute Neuts (auto) 8.2 H Absolute Lymphs (auto) 2.31 Nucleated RBC % 0 Sodium 138 Potassium 4.3 Chloride 107 Carbon Dioxide 29.0 Anion Gap 2 L BUN 23 H Creatinine 1.12 H Estim Creat Clear Calc 50.47 Est GFR (MDRD) Af Amer 65 Est GFR (MDRD) Non-Af 54 L BUN/Creatinine Ratio 20.5 H Glucose 92 Calcium 9.3 Urine Color Straw Urine Clarity Sl. Cloudy Urine pH 6.0 Ur Specific [place] 1.010 Urine Protein Negative Urine Glucose (UA) Normal Urine Ketones Negative Urine Occult Blood 10 H Urine Nitrite Negative Urine Bilirubin Negative Urine Urobilinogen Normal Ur Leukocyte Esterase 500 H Urine RBC 0 SEEN Urine WBC 25-50 SEEN Ur Squamous Epith Cells 5-10 SEEN Ur Renal Epithelial Cell 0-5 SEEN Urine Bacteria 1+ Urine Mucus 0 SEEN Radiography Diagnostic Testing: Clinical Impression(s) from Imaging Studies Abdomen/Pelvis CT 12/14/21 13:38 IMPRESSION: 1. No acute intra-abdominal findings. 2. Stable asymmetrically mildly atrophic right kidney. No obstructive uropathy. Electronically Signed: Ramiro Coburn, at 14:37 EDT , CT also reveals a renal cyst on the left side. Discharge Plan Triage Chief Complaint: Flank Pain ED Provider: Harlan Rich Dx/Rx/DC Orders Clinical Impression: Pyelonephritis of left kidney, Anemia, unspecified, Renal insufficiency Instructions: ED Pyelonephritis, Female (Adult), ED Renal Insufficiency Prescriptions: New sulfamethoxazole-trimethoprim [sulfamethoxazole-trimethoprim] 1 TABLET tablet 1 tab PO BID Qty: 20 RF: 0 No Action albuterol sulfate [ProAir HFA] 90 mcg/actuation HFA aerosol inhaler 2 puff INHALATION Q4H PRN (Reason: shortness of breath or wheezing) RF: 0 venlafaxine 75 mg capsule,extended release 24hr 75 mg PO DAILY RF: 0 Ensure Compact Liquid 118 ml PO DAILY RF: 0 carbidopa-levodopa 50-200 mg tablet extended release See Rx Instructions .ROUTE .COMPLEX Qty: 90 RF: 3 levetiracetam [Keppra] 500 mg tablet 500 mg PO BID Qty: 30 RF: 3 Dulera 100-5 mcg/actuation Hfa Aerosol Inhaler 2 puff INHALATION Q12H PRN (Reason: sob) RF: 0 venlafaxine 37.5 mg capsule,extended release 24hr 37.5 mg PO DAILY RF: 0 clonazepam 1 mg tablet 1 mg PO BID RF: 0 atorvastatin 80 mg tablet 80 mg PO QHS RF: 0 mirtazapine 7.5 mg tablet 7.5 mg PO QHS RF: 0 metoprolol succinate 100 mg tablet extended release 24 hr 100 mg PO DAILY Qty: 0 RF: 0 furosemide [Lasix] 20 mg tablet 20 mg PO DAILY PRN (Reason: leg swelling) Qty: 30 RF: 0 spironolactone 50 mg tablet 50 mg PO DAILY Qty: 0 RF: 0 tizanidine 4 mg tablet 4 mg PO Q8H PRN (Reason: muscle spasticity) Qty: 15 RF: 0 losartan 25 mg tablet 100 mg PO DAILY RF: 0 nitrofurantoin monohyd/m-cryst [nitrofurantoin monohyd/m-cryst] 100 MG capsule 100 mg PO Q12 Qty: 14 RF: 0 Primary Care Provider: Alvarez Montanez Referrals: Alvarez Montanez MD [Primary Care Provider] - Disposition Disposition: Home, Self Care
[2021-12-14] MEDS: Ondansetron 4 MG/2 ML Vial IV (13:52)
[2021-12-14] MEDS: Morphine 4 MG/ML Syringe IV (13:52)
[2021-12-14 14:02] LABS: Mucous, Urine 0 SEEN /hpf (<or=2+); Red Blood Cells-Urine 0 SEEN /hpf (0-5)
[2021-12-14 14:07] LABS: Absolute Lymphocyte Count 2.31 X10^3/uL (0.83-4.51); Absolute Neutrophil Count 8.2 X10^3/uL (2.0-7.7); Basophil# 0.05 X10^3/uL; Basophil% 0.4 % (0-1); Eosinophils% 1.8 % (0-5); Hematocrit 28.3 % (37-47); Hemoglobin 8.5 g/dL (12.0-15.0); Lymphocyte # 2.31 X10^3/ul (0.83-4.51); Lymphocyte % 20.3 % (19-41); Mean Corpuscular Hgb 28.4 pg (27.0-32.0); Mean Corpuscular Volume 94.6 fL (81-99); Mean Platelet Vol. 10.6 fl (6.2-12.0); Monocyte# 0.57 X10^3/uL; NRBC Flagged by Analyzer 0 % (0-5); Neutrophil % 72.1 % (47-70); Platelet Count 341 K/mm3 (150-450); RBC Distribution Width CV 13.9 % (11.6-14.6); RBC Distribution Width SD 47.5 fl (35.1-43.9); Red Blood Count 2.99 M/mm3 (4.2-5.4); White Blood Count 11.4 K/mm3 (4.4-11.0)
[2021-12-14 14:08] LABS: Color, Urine Straw (Yellow); Glucose, Dipstick Normal (Normal); Ketone-Dipstick Negative (Negative); Leukocyte Esterase-Dipstick 500 /ul (Negative); Nitrite-Dipstick Negative (Negative); Occult Blood-Urine 10 /ul (Negative); Protein-Dipstick Negative (Negative); Urine Bilirubin Dipstick Negative (Negative); Urine Clarity Sl. Cloudy (Clear); Urine Urobilinogen Normal (Normal)
[2021-12-14 14:16] LABS: Anion Gap 2 (5-15); BUN 23 mg/dL (7-18); BUN/Creat Ratio 20.5 RATIO (10-20); Calcium,Total 9.3 mg/dL (8.5-10.1); Chloride 107 mmol/L (98-107); Creatinine, Serum 1.12 mg/dL (0.55-1.02); EST Glomerular Filtration Rate 54 mL/min (>60); Est Glom Filt Rate - Afr Amer 65 mL/min (>60); Estimated Creatinine Clearance 50.47 ml/min; Glucose 92 mg/dL (74-106); Potassium 4.3 mmol/L (3.5-5.1); Sodium Level 138 mmol/L (136-145)
[2021-12-14 14:22] LABS: Bacteria 1+ /hpf (None Seen); Renal Epithelial Cells 0-5 SEEN /hpf (0-5); Squamous Epithelial Cells - UA 5-10 SEEN /hpf (5-10); White Blood Cells 25-50 SEEN /hpf (0-5)
[2021-12-14 14:39] VITALS: BP 103/62; PULSE 64; RESP 19; TEMP 36.6; O2SAT 99
[2021-12-14 15:02] VITALS: BP 162/68; BP 168/68; PULSE 64; RESP 17; TEMP 36.7; O2SAT 99
[2021-12-14] MEDS: Smz/Tmp Ds Tablet 1 TABLET PO (15:04)
[2021-12-14] MEDS: Morphine 2 MG/ML Syringe IV (15:04)
== END 2021-12-14 15:14 | disposition home or self-care (01) ==
PROVIDERS: Emergency Provider Emergency Medicine; PCP Internal Medicine; Visit Provider Emergency Medicine
DX: N12 Tubulo-interstitial nephritis, not specified as acute or chronic (principal); R31.9 Hematuria, unspecified; I11.0 Hypertensive heart disease with heart failure; J96.10 Chronic respiratory failure, unspecified whether with hypoxia or hypercapnia; J44.9 Chronic obstructive pulmonary disease, unspecified; I50.9 Heart failure, unspecified; I25.10 Atherosclerotic heart disease of native coronary artery without angina pectoris; D64.9 Anemia, unspecified; E78.5 Hyperlipidemia, unspecified; F11.20 Opioid dependence, uncomplicated; G40.909 Epilepsy, unspecified, not intractable, without status epilepticus; E03.9 Hypothyroidism, unspecified; E66.01 Morbid (severe) obesity due to excess calories; G47.33 Obstructive sleep apnea (adult) (pediatric); Z99.81 Dependence on supplemental oxygen; Z79.899 Other long term (current) drug therapy; I25.2 Old myocardial infarction; Z86.73 Personal history of transient ischemic attack (TIA), and cerebral infarction without residual deficits; Z87.891 Personal history of nicotine dependence
CPT/HCPCS: 74176; 80048; 81001; 85025; 96374; 96375; 96376; 99284; A4216; J2405

== ENCOUNTER 2022-01-10 17:27 | Emergency (ER) | payer MEDICAID, SELFPAY ==
[2022-01-10 17:28] VITALS: BP 90/62; PULSE 66; RESP 14; TEMP 36; O2SAT 88; BMI 38.7
[2022-01-10 17:30] VITALS: BP 90/62; PULSE 66; RESP 14; TEMP 36; O2SAT 88
--- NOTE | 2022-01-10 18:20 | EKG12_ITS ---
Test Reason : DYSRHYTHMIA Blood Pressure : / mmHG Vent. Rate : 064 BPM Atrial Rate : 064 BPM P-R Int : 148 ms QRS Dur : 090 ms QT Int : 422 ms P-R-T Axes : 021 -08 008 degrees QTc Int : 435 ms Normal sinus rhythm Normal ECG Confirmed by GISELA BATISTA, FAY ([id number]), book editor SAUMYA PERAZA ([id number]) on 01/12/2022 10:23:26 AM Referred By: NAKIA Confirmed By:FAY HIGGINS MD
--- NOTE | 2022-01-10 18:23 | EDS_ITS ---
HPI History of Present Illness Chief Complaint: Abn Labs Detail of Chief Complaint: Generalized weakness. Informant: patient and family Onset/Context/Timing Onset: Days Context: Gradual Onset Timing: Continuous Current Severity: Mild Maximum Severity: Mild Narrative Narrative: 56-year-old female history of COPD wears CPAP at night prior narcotic dependence, anemia, DVT, CHF, GI bleed. History of breast cancer prior cardiac arrest. States she just felt generally weak and increasing sleeping last few days. She had a near fall the other day and pulled her back. Denies any nausea vomiting diarrhea. No melena. No fever. She did not any dysuria, urgency, frequency or hematuria. No headache or chest pain. Prior similar symptoms: Yes Recent Illness/Hospitalization: No PFSH PFSH Medical History Abnormal cardiac enzyme level Acute and chronic respiratory failure Acute respiratory failure with hypoxia and hypercapnia LEIGH ANN (acute kidney injury) Anemia Anemia Anxiety and depression Back pain Bilateral peripheral pulmonary emboli BiPAP (biphasic positive airway pressure) dependence Breast infection Cancer Cardiac arrest Cardiology follow-up encounter Cardiopulmonary arrest with successful resuscitation Chest pain Chronic anemia Chronic narcotic dependence Compression fracture of T5 vertebra Compression fracture of T6 vertebra Congestive heart failure COPD (chronic obstructive pulmonary disease) COPD exacerbation Coronary artery disease CPAP (continuous positive airway pressure) dependence Debility Dependence on continuous supplemental oxygen Depression Diastolic dysfunction DVT (deep vein thrombosis) in DVT (deep venous thrombosis) Essential hypertension Fall Former smoker GERD (gastroesophageal reflux disease) HLD (hyperlipidemia) Hx of cardiovascular stress test Hx of echocardiogram Hypertension Hypothyroidism Morbid obesity MSSA (methicillin susceptible Staphylococcus aureus) pneumonia Myocardial infarct Obesity On home oxygen therapy STEPHANIE (obstructive sleep apnea) Pulmonary embolism Restrictive lung disease Right rib fracture Seizure disorder Seizures Sleep apnea SOB (shortness of breath) Syncope and collapse TIA (transient ischemic attack) TIA (transient ischemic attack) Wears dentures Wears glasses Home Medications albuterol sulfate 90 mcg/actuation aerosol inhaler (ProAir HFA) 2 puff inhalation Q4H PRN shortness of breath or wheezing 08/01/17 [History Last Taken 03/03/18] venlafaxine 75 mg capsule,extended release 24 hr 75 mg PO DAILY Check with primary doctor 03/02/21 [History Last Taken 08/25/21] mometasone-formoterol HFA 100 mcg-5 mcg/actuation aerosol inhaler (Dulera) 2 puff inhalation Q12H PRN sob 03/15/21 [History Last Taken Unknown] venlafaxine 37.5 mg capsule,extended release 24 hr 37.5 mg PO DAILY Depression 04/25/21 [History Last Taken 08/25/21] clonazepam 1 mg tablet 1 mg PO BID anxiety 05/09/21 [History Last Taken 08/25/21] food supplemt, lactose-reduced (Ensure Compact) 118 ml PO DAILY supplement 05/24/21 [History Last Taken 08/25/21] atorvastatin 80 mg tablet 80 mg PO QHS cholesterol 08/26/21 [History Last Taken 08/25/21] mirtazapine 7.5 mg tablet 7.5 mg PO QHS sleep 08/26/21 [History Last Taken Unknown] furosemide 20 mg tablet (Lasix) 20 mg PO DAILY PRN leg swelling #30 tabs 2 [Rx Last Taken 08/25/21] metoprolol succinate 100 mg tablet,extended release 24 hr 100 mg PO DAILY blood pressure #0 tabs 08/31/21 [Rx Last Taken 08/25/21] spironolactone 50 mg tablet 50 mg PO DAILY diuretic #0 tabs 08/31/21 [Rx Last Taken 08/25/21] tizanidine 4 mg tablet 4 mg PO Q8H PRN muscle spasticity #15 tabs 09/22/21 [Rx Last Taken Unknown] losartan 25 mg tablet 100 mg PO DAILY 11/03/21 [History Last Taken Unknown] nitrofurantoin monohydrate/macrocrystals 100 mg capsule 100 mg PO Q12 #14 CAPSULES 11/03/21 [Rx Last Taken Unknown] carbidopa ER 50 mg-levodopa 200 mg tablet,extended release See Rx Instructions .Route .COMPLEX #90 tabs 12/12/21 [Rx Last Taken Unknown] levetiracetam 500 mg tablet (Keppra) 500 mg PO BID seizures #30 tabs 12/12/21 [Rx Last Taken Unknown] sulfamethoxazole 800 mg-trimethoprim 160 mg tablet 1 tab PO BID #20 TABLETS 12/14/21 [Rx Last Taken Unknown] Allergy/AdvReac Type Severity Reaction Status Date / Time aspirin Allergy Hives Verified 01/10/22 17:30 dicyclomine Allergy Itching Verified 01/10/22 17:30 ibuprofen Allergy Hives Verified 01/10/22 17:30 ketorolac tromethamine Allergy Angioedema Verified 01/10/22 17:30 [From Toradol] meperidine HCl [From Demerol] Allergy seizures Verified 01/10/22 17:30 nitroglycerin Allergy Angioedema Verified 01/10/22 17:30 nut - unspecified Allergy Hives Verified 01/10/22 17:30 Penicillins [PCN] Allergy Hives Verified 01/10/22 17:30 tramadol HCl [From Ultram] Allergy Angioedema Verified 01/10/22 17:30 Family History Brother Myocardial infarction Asthma Mental disorder Psychiatric care Suicide attempt Father Colon cancer Brother Mental disorder Aunt Parkinson disease Sister Breast cancer Cervical cancer Ovarian cancer Sister Cervical cancer Ovarian cancer Mother Cancer History of blood clots Hypertension Surgical History History of appendectomy History of cardiac catheterization History of cholecystectomy History of cholecystectomy History of esophagogastroduodenoscopy (EGD) History of hysterectomy History of left breast biopsy History of left heart catheterization (LHC) (~04/22/21) History of lumpectomy of left breast Hx of appendectomy S/P lumpectomy, left breast Social History household members: none Smoking Status: Former smoker quit date: 01/21/16 pack-years: 32 second hand exposure: Yes alcohol intake: never substance use type: does not use ROS ROS ED ROS Narrative Generalized weakness. Increased sleep. Review of Systems ROS Unobtainable: Denies due to encephalopathy Constitutional Constitutional ED: Denies chills or fever(s) Eyes Eyes: Denies blurry vision Cardiovascular Cardiovascular: Denies chest pain or palpitations Respiratory/Chest Respiratory/Chest: Denies cough or dyspnea Gastrointestinal Gastrointestinal: Denies abdominal pain, constipation, diarrhea, melena, nausea or vomiting Genitourinary Genitourinary ED: Denies dysuria, hematuria or urinary frequency Musculoskeletal Musculoskeletal: Denies arthralgias Integumentary Denies abscess Neurologic Neurologic: Denies headache(s) Psychiatric Psychiatric: Denies anxiety Endocrine Endocrinology: Denies cold intolerance Allergic/Immunologic Allergic/Immunologic ED: Reports mouth swelling EXAM Physical Exam Narrative Exam Narrative: 56-year-old female vital signs show a low blood pressure 90/62. She does not look septic or toxic. Her pulse is 80%. Her temperature is 96. H EENT exam shows moist mucous membranes. Neck nontender. Lungs are clear equal symmetrical. Heart regular rhythm no murmur. Rate about 66. Abdomen morbidly obese soft nontender nondistended no abnormal bowel sounds no peritoneal signs. Moving all 4 extremities. Back diffuse tenderness over her lower paralumbar soft tissue consistent with a lumbar strain. Neurologically she is awake and alert. Answering questions following commands. Const Vital Signs: 01/10/22 17:28 01/10/22 17:30 01/10/22 18:29 Temperature 96.8 F L 96.8 F L Temperature Source Temporal Temporal Pulse Rate 66 66 Respiratory Rate 14 14 Respiratory Effort Normal Non-Labored Respiratory Pattern Normal Blood Pressure 90/62 90/62 Blood Pressure Mean 71 71 Pulse Ox 88 88 Oxygen Delivery Method Room Air Room Air Oxygen Flow Rate (L/min) 01/10/22 18:44 01/10/22 18:48 01/10/22 20:26 Temperature Temperature Source Pulse Rate 64 57 L Respiratory Rate 18 15 Respiratory Effort Respiratory Pattern Blood Pressure 92/63 103/65 103/70 Blood Pressure Mean 72 77 81 Pulse Ox 100 100 99 Oxygen Delivery Method Nasal Cannula Nasal Cannula Room Air Oxygen Flow Rate (L/min) 2 Positive well nourished, well developed and obese; Negative for cachectic or contractures General Appearance ED: well developed; Negative for cachectic, contractures or pallor Nutritional Appearance: obese; Negative for cachectic HEENT Reports moist mucous membranes; Denies dry mucous membranes Negative for trauma or tenderness Mouth ED: No dry mucous membranes Mouth: No dry mucous membranes Eyes PERRL and EOMs intact bilaterally General Eye ED: Negative for pale conjunctiva or scleral icterus Neck no lymphadenopathy, supple and no JVD General: Negative for tenderness Lymph Lymphatic: Negative for other Chest Wall inspection of chest normal and palpation of chest normal Resp normal respiratory effort and clear to auscultation bilaterally Effort and Inspection: Negative for retractions Auscultation: Negative for rales, rhonchi or wheezes Cardio regular rate, regular rhythm, S1 normal heart sound, S2 normal heart sound and no murmurs Rate: Negative for bradycardia or tachycardic GI normal to inspection, nondistended, normoactive bowel sounds, non-tender, non- distended and no masses Inspection: Negative for abdominal distention Auscultation: normoactive bowel sounds Palpation: soft; Negative for tender, guarding, splenomegaly, mass or rebound tenderness present Back/Spine no CVA tenderness Thoracic Spine / Upper Back: paraspinal muscle tenderness Extremity normal to inspection General Extremety ED: Negative for edema or tenderness General Extremity: Negative for edema Neuro oriented x3 Sensorium / Orientation: alert; Negative for orientation impaired, lethargic or stuporous Motor Exam: strength 5/5 throughout; Negative for general weakness Psych mental status grossly normal Attitude: No agitated Skin no rashes or lesions noted and no wounds General Skin Exam: Negative for jaundice or pallor MDM MDM MDM Narrative Medical decision making narrative: 56-year-old female complicated and significant past medical history that is hypotensive and hypoxic. Clinically though sitting there in no distress. Labs to be obtained. Repeat exam patient is doing well at 10:20 PM. Work-up is benign. Has a chronic anemia. Patient be discharged home. Lab Data Attestation: I reviewed the patient's lab results. Lab results narrative: CBC shows a white count of 7. H&H 8.6 and 28 she has a baseline anemia. Platelets 275. Electrolytes unremarkable gap of 3 BUN and creatinine are 29 and 1. Glucose 118. Labs: Laboratory Results - last 24 hr 01/10/22 01/10/22 18:32 18:32 WBC 7.3 RBC 3.14 L Hgb 8.6 L Hct 28.3 L MCV 90.1 MCH 27.4 MCHC 30.4 L RDW Std Deviation 47.4 H RDW Coeff of Immanuel 14.5 Plt Count 275 MPV 10.8 Immature Gran % (Auto) 0.400 Neut % (Auto) 57.7 Lymph % (Auto) 31.7 [place] % (Auto) 7.3 Eos % (Auto) 2.1 Baso % (Auto) 0.8 Absolute Neuts (auto) 4.2 Absolute Lymphs (auto) 2.32 Nucleated RBC % 0 Sodium 138 Potassium 4.2 Chloride 110 H Carbon Dioxide 25.0 Anion Gap 3 L BUN 29 H Creatinine 1.06 H Estim Creat Clear Calc 55.48 Est GFR (MDRD) Af Amer 69 Est GFR (MDRD) Non-Af 57 L BUN/Creatinine Ratio 27.4 H Glucose 118 H Calcium 8.9 Radiography Chest X-Ray - ED: 1 View, Read by ED Physician, Read by Radiologist, Heart, Mediastinum, Bony Structures and Chronic Changes Diagnostic Testing: Clinical Impression(s) from Imaging Studies Chest X-Ray 01/10/22 18:35 IMPRESSION: No acute cardiopulmonary process. Electronically Signed: Curtis Collins MD at 19:06 EDT Reading Location ID and State: [facility] / [place] Tel , Service support , Chest x-ray, single view, portable inter by myself and radiologist shows no acute abnormality. Normal cardiac silhouette. No infiltrate. Rhythm Strip Rhythm Strip: Sinus Rhythm Rate: 64 Ectopy: None EKG Initial EKG: Attestation: I personally reviewed and interpreted this EKG as follows: Interpretation: Sinus Rhythm and No Acute Injury Pattern Comments: Normal sinus rhythm rate of 64 no acute signs of [place] or ischemia. Discharge Plan Triage Chief Complaint: Abn Labs ED Provider: Magen Abarca Dx/Rx/DC Orders Prescriptions: No Action albuterol sulfate [ProAir HFA] 90 mcg/actuation HFA aerosol inhaler 2 puff INHALATION Q4H PRN (Reason: shortness of breath or wheezing) venlafaxine 75 mg capsule,extended release 24hr 75 mg PO DAILY Ensure Compact Liquid 118 ml PO DAILY Label Comments: 2 ENSURE'S DAILY carbidopa-levodopa 50-200 mg tablet extended release See Rx Instructions .ROUTE .COMPLEX Qty: 90 3RF Rx Instructions: Take 1 tablet PO daily for one week then 1 BID for one week then 1 TID thereafter. levetiracetam [Keppra] 500 mg tablet 500 mg PO BID Qty: 30 3RF Dulera 100-5 mcg/actuation Hfa Aerosol Inhaler 2 puff INHALATION Q12H PRN (Reason: sob) venlafaxine 37.5 mg capsule,extended release 24hr 37.5 mg PO DAILY Label Comments: TAKE 1 CAPSULE BY MOUTH ONCE DAILY WITH 75MG CAPSULE . APPOINTMENT REQUIRED FOR FUTURE REFILLS Rx Instructions: Take daily with 75 mg dose clonazepam 1 mg tablet 1 mg PO BID atorvastatin 80 mg tablet 80 mg PO QHS Label Comments: TAKE 1 TABLET BY MOUTH ONCE DAILY mirtazapine 7.5 mg tablet 7.5 mg PO QHS Label Comments: TAKE 1 TABLET BY MOUTH AT BEDTIME metoprolol succinate 100 mg tablet extended release 24 hr 100 mg PO DAILY Qty: 0 0RF Label Comments: TAKE (1) TABLET BY MOUTH ONCE DAILY Rx Instructions: Hold for heart less than 60 or systolic blood pressure less than 100 mmHg. furosemide [Lasix] 20 mg tablet 20 mg PO DAILY PRN (Reason: leg swelling) Qty: 30 0RF Rx Instructions: Do not take if systolic blood pressure is less than 110 mmHg spironolactone 50 mg tablet 50 mg PO DAILY Qty: 0 0RF Label Comments: TAKE 1 TABLET BY MOUTH ONCE DAILY. Rx Instructions: Hold if serum potassium more than 4.5 tizanidine 4 mg tablet 4 mg PO Q8H PRN (Reason: muscle spasticity) Qty: 15 0RF losartan 25 mg tablet 100 mg PO DAILY Rx Instructions: Hold for SBP less than 110 mmHg nitrofurantoin monohyd/m-cryst [nitrofurantoin monohyd/m-cryst] 100 MG capsule 100 mg PO Q12 Qty: 14 0RF sulfamethoxazole-trimethoprim [sulfamethoxazole-trimethoprim] 1 TABLET tablet 1 tab PO BID Qty: 20 0RF Primary Care Provider: Alvarez Montanez Referrals: Alvarez Montanez MD [Primary Care Provider] -
[2022-01-10] MEDS: Acetaminophen 500 MG Tablet 1000 MG PO (18:30)
--- NOTE | 2022-01-10 18:35 | RAD_ITS ---
STUDY: X-RAY CHEST REASON FOR EXAM: Female, 56 years old. weakness TECHNIQUE: 1 view COMPARISON: 08/26/2021 FINDINGS: Cardiomediastinal silhouette is unremarkable. Costophrenic angles are sharp. Lungs are clear. The trachea is midline. There is no pneumothorax. The bones are grossly intact. RAD/Chest 1 View (Portable) IMPRESSION: No acute cardiopulmonary process. Electronically Signed: Curtis Collins MD at 19:06 EDT ,
[2022-01-10 18:43] LABS: Absolute Lymphocyte Count 2.32 X10^3/uL (0.83-4.51); Absolute Neutrophil Count 4.2 X10^3/uL (2.0-7.7); Basophil# 0.06 X10^3/uL; Basophil% 0.8 % (0-1); Eosinophil# 0.15 X10^3/uL; Eosinophils% 2.1 % (0-5); Hematocrit 28.3 % (37-47); Hemoglobin 8.6 g/dL (12.0-15.0); Lymphocyte # 2.32 X10^3/ul (0.83-4.51); Lymphocyte % 31.7 % (19-41); Mean Corp Hgb Conc 30.4 g/dL (32-36); Mean Corpuscular Hgb 27.4 pg (27.0-32.0); Mean Corpuscular Volume 90.1 fL (81-99); Mean Platelet Vol. 10.8 fl (6.2-12.0); Monocyte# 0.53 X10^3/uL; Monocyte% 7.3 % (0-10); NRBC Flagged by Analyzer 0 % (0-5); Neutrophil # 4.22 X10^3/uL (2.7-7.7); Neutrophil % 57.7 % (47-70); Platelet Count 275 K/mm3 (150-450); RBC Distribution Width CV 14.5 % (11.6-14.6); RBC Distribution Width SD 47.4 fl (35.1-43.9); Red Blood Count 3.14 M/mm3 (4.2-5.4); White Blood Count 7.3 K/mm3 (4.4-11.0)
[2022-01-10 18:44] VITALS: BP 92/63; PULSE 64; RESP 18; O2SAT 100
[2022-01-10 18:48] VITALS: BP 103/65; O2SAT 100
[2022-01-10 19:00] LABS: Anion Gap 3 (5-15); BUN 29 mg/dL (7-18); BUN/Creat Ratio 27.4 RATIO (10-20); Calcium,Total 8.9 mg/dL (8.5-10.1); Chloride 110 mmol/L (98-107); Creatinine, Serum 1.06 mg/dL (0.55-1.02); EST Glomerular Filtration Rate 57 mL/min (>60); Est Glom Filt Rate - Afr Amer 69 mL/min (>60); Estimated Creatinine Clearance 55.48 ml/min; Glucose 118 mg/dL (74-106); Potassium 4.2 mmol/L (3.5-5.1); Sodium Level 138 mmol/L (136-145)
[2022-01-10 20:26] VITALS: BP 103/70; PULSE 57; RESP 15; O2SAT 99
[2022-01-10 22:33] VITALS: BP 106/76; PULSE 82; RESP 16; O2SAT 98
== END 2022-01-10 22:39 | disposition home or self-care (01) ==
PROVIDERS: Emergency Provider Emergency Medicine; PCP Internal Medicine; Visit Provider Emergency Medicine
DX: D64.9 Anemia, unspecified (principal); J44.9 Chronic obstructive pulmonary disease, unspecified; I11.0 Hypertensive heart disease with heart failure; I50.9 Heart failure, unspecified; F11.21 Opioid dependence, in remission; E66.01 Morbid (severe) obesity due to excess calories; G40.909 Epilepsy, unspecified, not intractable, without status epilepticus; I95.9 Hypotension, unspecified; R09.02 Hypoxemia; I25.10 Atherosclerotic heart disease of native coronary artery without angina pectoris; E78.5 Hyperlipidemia, unspecified; E03.9 Hypothyroidism, unspecified; G47.33 Obstructive sleep apnea (adult) (pediatric); Z99.81 Dependence on supplemental oxygen; Z86.73 Personal history of transient ischemic attack (TIA), and cerebral infarction without residual deficits; Z87.891 Personal history of nicotine dependence; Z85.3 Personal history of malignant neoplasm of breast
CPT/HCPCS: 71045; 80048; 85025; 93005; 99283; A4216

== ENCOUNTER 2022-01-15 19:01 | Emergency (ER) | payer MEDICAID, SELFPAY ==
[2022-01-15 19:01] VITALS: BP 107/91; PULSE 64; RESP 18; TEMP 36.6; O2SAT 99; BMI 42.6
[2022-01-15 19:27] VITALS: O2SAT 96
--- NOTE | 2022-01-15 19:44 | CT_ITS ---
INDICATION: head injury EXAMINATION: CT BRAIN - CT Head or Brain W/O Contrast Injection TECHNIQUE: Multiple axial images were obtained of the head without intravenous contrast. A radiation dose optimization technique was used for this scan. IV Contrast dosage and agent: None. RADIATION DOSAGE (If Supplied By Facility): CTDIvol = ( 44.99 ) mGy, DLP = ( 829.85 ) mGycm COMPARISON: 11/03/2021 FINDINGS: HEMISPHERES: 1. The cerebral parenchyma, ventricular system, subarachnoid spaces have normal configuration and density. There is a normal gyral pattern. There is normal kramer/white differentiation. No midline shift.. 2. The hemispheric white matter has normal appearance. 3. No intraparenchymal mass, hemorrhage, or acute territorial infarct. CEREBELLUM - BRAINSTEM: The cerebellum, brainstem, basilar and suprasellar cisterns have normal appearance. No Chiari malformation. PITUITARY: Partial empty sella is present.. No sellar or suprasellar masses. CSF SPACES: Appropriate for age. No hydrocephalus. Basal cisterns are patent. VESSELS: 1. No significant vascular calcifications in the cavernous carotid vessels. 2. No hyperdense vascular signs noted.. ORBITS AND PARANASAL SINUSES: 1. Normal appearance of the bony orbits. Normal appearance of the globes and retrobulbar soft tissues.. 2. Paranasal sinuses are clear. BONY ELEMENTS: Bony elements of the cranial vault, facial skeleton and skull base have normal appearance. SCALP AND SOFT TISSUES: There is a midline posterior parietal scalp hematoma/contusion without radiopaque foreign body or underlying fracture. OTHER: None ASPECTS Score for Acute Strokes: 10 CT/Brain/Head without Contrast IMPRESSION: 1. Midline posterior parietal scalp contusion/hematoma without underlying fracture or radiopaque foreign body. 2. No intracranial evidence of acute traumatic injury. 3. No intracranial mass, hemorrhage or acute territorial infarct. 4. No cranial facial fracture noted. 5. Incidental note of a partial empty sella. 6. No radiographically significant disease. Electronically Signed: Javier Lam MD at 20:54 EDT ,
--- NOTE | 2022-01-15 19:44 | CT_ITS ---
INDICATION: head injury EXAMINATION: CT CERVICAL SPINE - CT Spine Cervical W/O Contrast Injection TECHNIQUE: Helically acquired images were obtained of the cervical spine. 2D reformatted images were reviewed. A radiation dose optimization technique was used for this scan. IV Contrast dosage and agent: None. COMPARISON: None. FINDINGS: VERTEBRAE: 1. Vertebral body height and alignment are maintained. 2. There is developmental variant with deformity of the LEFT side of the C3 vertebral body and the LEFT C3 facet which is stable. There is deformity of the LEFT facet joints and the LEFT neural foramen which is chronic/remote. 3. No acute fractures noted. There is incomplete fusion posterior arch of C1. 4. Remaining disc spaces are maintained. Odontoid process is intact. DISCS and SPINAL CANAL: Disc heights are preserved. No critical stenosis. NECK SOFT TISSUES: No prevertebral soft tissue swelling. There is no cervical adenopathy. LUNG APICES: Clear. CT/Spine Cervical without Contras IMPRESSION: 1. Stable exam. 2. Deformity of the LEFT side at C3 vertebral body including the LEFT pedicle and LEFT facets with narrowing and deformity LEFT lateral recess and LEFT neural foramen. 3. No evidence of acute cervical spinal fracture or spondylolisthesis. 4. No acutely acquired canal stenosis. Electronically Signed: Javier Lam MD at 21:00 EDT ,
--- NOTE | 2022-01-15 19:44 | RAD_ITS ---
INDICATION: injury EXAMINATION/TECHNIQUE: X-RAY - RIGHT XR Shoulder Min 2 Views 2 VIEWS COMPARISON: None. FINDINGS: SOFT TISSUES: No soft tissue swelling or gas. No radiopaque foreign body. BONES/JOINTS: No acute fracture or subluxation.. Normal alignment. Preservation of the joint space.. No sclerotic or destructive changes observed. RAD/Shoulder min 2 Views IMPRESSION: Negative. Electronically Signed: Javier Lam MD at 21:00 EDT ,
--- NOTE | 2022-01-15 19:45 | EKG12_ITS ---
Test Reason : FALL Blood Pressure : / mmHG Vent. Rate : 060 BPM Atrial Rate : 060 BPM P-R Int : 160 ms QRS Dur : 088 ms QT Int : 418 ms P-R-T Axes : 006 001 012 degrees QTc Int : 418 ms Normal sinus rhythm Normal ECG Confirmed by GISELA BATISTA, FAY ([id number]), research editor SAUMYA PERAZA ([id number]) on 01/17/2022 8:25:20 AM Referred By: TL Confirmed By:FAY HIGGINS MD
--- NOTE | 2022-01-15 19:47 | ED.VIS.FALL ---
HPI HPI - Fall History of Present Illness Chief Complaint: Fall Informant: patient and EMS Narrative Narrative: Patient brought in by EMS from home for fall x2 today. Per initial fall earlier today getting off the commode when she lost her balance falling and hitting the back of her right shoulder. Pain worse with shoulder movement. She had a fracture years ago nonsurgically repaired, does not currently follow orthopedist. She states this evening was feeding her dog standing up losing her balance and hitting the hard floor. She lost consciousness. She has a life alert that notes when she falls and this was alerted for EMS. She only recalls when EMS arrived. She does take Xarelto for history of blood clots. Complains of headache. No nausea or vomiting. Complains of additional right hip pain. Unable to get up because of this. History of Parkinson's she probably gets around by wheelchair however on good days can get around with a walker for which she was able to stand and weight-bear today. She reports had transient chest pains earlier today. [facility] Medical History Abnormal cardiac enzyme level Acute and chronic respiratory failure Acute respiratory failure with hypoxia and hypercapnia LEIGH ANN (acute kidney injury) Anemia Anemia Anxiety and depression Back pain Bilateral peripheral pulmonary emboli BiPAP (biphasic positive airway pressure) dependence Breast infection Cancer Cardiac arrest Cardiology follow-up encounter Cardiopulmonary arrest with successful resuscitation Chest pain Chronic anemia Chronic narcotic dependence Compression fracture of T5 vertebra Compression fracture of T6 vertebra Congestive heart failure COPD (chronic obstructive pulmonary disease) COPD exacerbation Coronary artery disease CPAP (continuous positive airway pressure) dependence Debility Dependence on continuous supplemental oxygen Depression Diastolic dysfunction DVT (deep vein thrombosis) in DVT (deep venous thrombosis) Essential hypertension Fall Former smoker GERD (gastroesophageal reflux disease) HLD (hyperlipidemia) Hx of cardiovascular stress test Hx of echocardiogram Hypertension Hypothyroidism Morbid obesity MSSA (methicillin susceptible Staphylococcus aureus) pneumonia Myocardial infarct Obesity On home oxygen therapy STEPHANIE (obstructive sleep apnea) Pulmonary embolism Restrictive lung disease Right rib fracture Seizure disorder Seizures Sleep apnea SOB (shortness of breath) Syncope and collapse TIA (transient ischemic attack) TIA (transient ischemic attack) Wears dentures Wears glasses Home Medications albuterol sulfate 90 mcg/actuation aerosol inhaler (ProAir HFA) 2 puff inhalation Q4H PRN shortness of breath or wheezing 08/01/17 [History Last Taken 03/03/18] venlafaxine 75 mg capsule,extended release 24 hr 75 mg PO DAILY Check with primary doctor 03/02/21 [History Last Taken 08/25/21] mometasone-formoterol HFA 100 mcg-5 mcg/actuation aerosol inhaler (Dulera) 2 puff inhalation Q12H PRN sob 03/15/21 [History Last Taken Unknown] venlafaxine 37.5 mg capsule,extended release 24 hr 37.5 mg PO DAILY Depression 04/25/21 [History Last Taken 08/25/21] clonazepam 1 mg tablet 1 mg PO BID anxiety 05/09/21 [History Last Taken 08/25/21] food supplemt, lactose-reduced (Ensure Compact) 118 ml PO DAILY supplement 05/24/21 [History Last Taken 08/25/21] atorvastatin 80 mg tablet 80 mg PO QHS cholesterol 08/26/21 [History Last Taken 08/25/21] mirtazapine 7.5 mg tablet 7.5 mg PO QHS sleep 08/26/21 [History Last Taken Unknown] furosemide 20 mg tablet (Lasix) 20 mg PO DAILY PRN leg swelling #30 tabs 08/31/21 [Rx Last Taken 08/25/21] metoprolol succinate 100 mg tablet,extended release 24 hr 100 mg PO DAILY blood pressure #0 tabs 08/31/21 [Rx Last Taken 08/25/21] spironolactone 50 mg tablet 50 mg PO DAILY diuretic #0 tabs 08/31/21 [Rx Last Taken 08/25/21] tizanidine 4 mg tablet 4 mg PO Q8H PRN muscle spasticity #15 tabs 09/22/21 [Rx Last Taken Unknown] losartan 25 mg tablet 100 mg PO DAILY 11/03/21 [History Last Taken Unknown] nitrofurantoin monohydrate/macrocrystals 100 mg capsule 100 mg PO Q12 #14 CAPSULES 11/03/21 [Rx Last Taken Unknown] carbidopa ER 50 mg-levodopa 200 mg tablet,extended release See Rx Instructions .Route .COMPLEX #90 tabs 12/12/21 [Rx Last Taken Unknown] levetiracetam 500 mg tablet (Keppra) 500 mg PO BID seizures #30 tabs 12/12/21 [Rx Last Taken Unknown] sulfamethoxazole 800 mg-trimethoprim 160 mg tablet 1 tab PO BID #20 TABLETS 12/14/21 [Rx Last Taken Unknown] oxycodone-acetaminophen 5 mg-325 mg tablet (Percocet) 1 tab PO Q6H PRN pain 3 days #12 tabs 01/15/22 [Rx Last Taken Unknown] rivaroxaban 20 mg tablet (Xarelto) 20 mg PO DAILY 01/15/22 [History Last Taken Unknown] Allergy/AdvReac Type Severity Reaction Status Date / Time aspirin Allergy Hives Verified 01/15/22 19:22 dicyclomine Allergy Itching Verified 01/15/22 19:22 ibuprofen Allergy Hives Verified 01/15/22 19:22 ketorolac tromethamine Allergy Angioedema Verified 01/15/22 19:22 [From Toradol] meperidine HCl [From Demerol] Allergy seizures Verified 01/15/22 19:22 nitroglycerin Allergy Angioedema Verified 01/15/22 19:22 nut - unspecified Allergy Hives Verified 01/15/22 19:22 Penicillins [PCN] Allergy Hives Verified 01/15/22 19:22 tramadol HCl [From Ultram] Allergy Angioedema Verified 01/15/22 19:22 Family History Brother Myocardial infarction Asthma Mental disorder Psychiatric care Suicide attempt Father Colon cancer Brother Mental disorder Aunt Parkinson disease Sister Breast cancer Cervical cancer Ovarian cancer Sister Cervical cancer Ovarian cancer Mother Cancer History of blood clots Hypertension Surgical History History of appendectomy History of cardiac catheterization History of cholecystectomy History of cholecystectomy History of esophagogastroduodenoscopy (EGD) History of hysterectomy History of left breast biopsy History of left heart catheterization (LHC) (~04/22/21) History of lumpectomy of left breast Hx of appendectomy S/P lumpectomy, left breast Social History household members: none Smoking Status: Former smoker quit date: 01/21/16 pack-years: 32 second hand exposure: Yes alcohol intake: never substance use type: does not use ROS ROS ED Constitutional Constitutional ED: Denies chills, fever(s) or sweats Eyes Eyes: Denies change in vision ENT ENT ED: Denies dysphagia or sore throat Cardiovascular Cardiovascular: Reports chest pain; Denies leg edema, palpitations or racing heartbeat Respiratory/Chest Respiratory/Chest: Denies cough, dyspnea or dyspnea on exertion Gastrointestinal Gastrointestinal: Denies abdominal pain, diarrhea, nausea or vomiting Genitourinary Genitourinary ED: Denies dysuria, hematuria or urinary frequency Musculoskeletal Musculoskeletal: Reports other Details: Right shoulder and right hip pain ; Denies back pain, extremity pain or neck pain Integumentary Denies rash or wounds Neurologic Neurologic: Reports headache(s); Denies paresthesias or weakness EXAM Physical Exam Const Vital Signs: 01/15/22 19:01 01/15/22 19:27 01/15/22 20:01 Temperature 97.8 F Temperature Source Temporal Pulse Rate 64 60 Respiratory Rate 18 15 Respiratory Effort Normal Non-Labored Respiratory Depth Normal Respiratory Pattern Normal Blood Pressure 107/91 H 99/67 Blood Pressure Mean 96 77 Pulse Ox 99 96 100 Oxygen Delivery Method Room Air Room Air Nasal Cannula Oxygen Flow Rate (L/min) 2 01/15/22 21:00 01/15/22 22:00 01/15/22 22:06 Temperature Temperature Source Pulse Rate 55 L 56 L 56 L Respiratory Rate 16 17 17 Respiratory Effort Respiratory Depth Respiratory Pattern Blood Pressure 100/58 L 107/71 107/71 Blood Pressure Mean 72 83 Pulse Ox 100 99 99 Oxygen Delivery Method Nasal Cannula Nasal Cannula Oxygen Flow Rate (L/min) 2 2 Positive well nourished and well developed Constitutional Narrative: GCS 15. General Appearance ED: well developed and NAD HEENT Reports TM's normal bilaterally and moist mucous membranes HEENT Narrative: Hematoma at the crown of the head with no lacerations. No hemotympanums. normocephalic Eyes PERRL, EOMs intact bilaterally and conjunctivae normal General Eye ED: Yes normal appearance of both eyes Neck no lymphadenopathy and supple Neck Narrative: No midline tenderness or step-offs. General: Negative for tenderness Chest Wall palpation of chest normal Chest Narrative: No chest wall tenderness. Chest: Negative for tenderness Resp normal respiratory effort and normal air movement Effort and Inspection: symmetric chest movement; Negative for respiratory distress Cardio regular rate, regular rhythm and no murmurs Peripheral Pulses: pulses 2+ throughout GI normal to inspection, nondistended, normoactive bowel sounds, non-tender and non-distended Palpation: Negative for guarding or rebound tenderness present Back/Spine no CVA tenderness and no thoracic nor lumbar tenderness Back/Spine Narrative: Small ecchymosis noted right lower thoracic posterior region. No crepitus. No midline thoracic or lumbar tenderness or step-offs. Extremity Extremity Narrative: Right upper extremity: Active full range of motion there is no ecchymosis or deformities. Mild tenderness posterior shoulder. Skin intact. Neuro vas intact distally. Left upper extremity: Full range of motion no tenderness, no deformities. Neuro vas intact distally. Right lower extremity: Pain with logroll, however there is no shortening or rotation. Tender palpation lateral greater trochanteric. Left lower extremity: Negative logroll, nontender no deformities. Neuro vas intact distally. General Extremety ED: Negative for edema or tenderness General Extremity: Negative for edema Neuro oriented x3 and no sensory deficits noted Sensorium / Orientation: awake and alert Skin Skin Narrative: See above MDM MDM MDM Narrative Medical decision making narrative: Patient with large scalp hematoma on Xarelto. Trauma scans head and neck are negative. She reported chest pains earlier today. EKG normal troponin negative within the algorithm. X-ray right shoulder 2 views reviewed by myself and read by radiology shows no acute process. Right hip and pelvis 3 views reviewed by myself and read by radiologist negative for any acute fracture or dislocation. Lab with anemia hemoglobin 7.3 it ranges from 7-9's previously. She denies any rectal bleeding. She was treated fentanyl initially. She reports primary wheelchair however on good days can ambulate with a walker she is doing that today pain attempt her mobility, she is able to get herself out of bed onto the walker and sit down without any major difficulties. She feels like she can take care of herself at home with her chronic status. She was given oxycodone to use for pain at home. She will follow-up as an outpatient with return precautions. All questions were answered. Lab Data Labs: Laboratory Results - last 24 hr 01/15/22 01/15/22 01/15/22 20:10 20:10 20:10 WBC 7.8 RBC 2.65 L Hgb 7.3 L Hct 24.9 L MCV 94.0 MCH 27.5 MCHC 29.3 L RDW Std Deviation 50.2 H RDW Coeff of Immanuel 14.6 Plt Count 272 MPV 11.2 Immature Gran % (Auto) 0.300 Neut % (Auto) 61.3 Lymph % (Auto) 30.2 Bradford % (Auto) 5.8 Eos % (Auto) 1.8 Baso % (Auto) 0.6 Absolute Neuts (auto) 4.8 Absolute Lymphs (auto) 2.34 Nucleated RBC % 0 PT 19.6 H INR 1.7 APTT 41.2 H Sodium 138 Potassium 4.6 Chloride 111 H Carbon Dioxide 24.0 Anion Gap 3 L BUN 37 H Creatinine 1.23 H Estim Creat Clear Calc 47.81 Est GFR (MDRD) Af Amer 58 L Est GFR (MDRD) Non-Af 48 L BUN/Creatinine Ratio 30.1 H Glucose 89 Calcium 8.7 Troponin I High Sens < 3 L Radiography Diagnostic Testing: Clinical Impression(s) from Imaging Studies Brain CT 01/15/22 19:44 IMPRESSION: 1. Midline posterior parietal scalp contusion/hematoma without underlying fracture or radiopaque foreign body. 2. No intracranial evidence of acute traumatic injury. 3. No intracranial mass, hemorrhage or acute territorial infarct. 4. No cranial facial fracture noted. 5. Incidental note of a partial empty sella. 6. No radiographically significant disease. Electronically Signed: Javier Lam MD at 20:54 EDT , Cervical Spine CT 01/15/22 19:44 IMPRESSION: 1. Stable exam. 2. Deformity of the LEFT side at C3 vertebral body including the LEFT pedicle and LEFT facets with narrowing and deformity LEFT lateral recess and LEFT neural foramen. 3. No evidence of acute cervical spinal fracture or spondylolisthesis. 4. No acutely acquired canal stenosis. Electronically Signed: Javier Lam MD at 21:00 EDT , Shoulder X-Ray 01/15/22 19:44 IMPRESSION: Negative. Electronically Signed: Javier Lam MD at 21:00 EDT , Hip/Pelvis X-Ray 01/15/22 20:30 IMPRESSION: Negative. Electronically Signed: Javier Lam MD at 21:01 EDT , EKG Initial EKG: Attestation: I personally reviewed and interpreted this EKG as follows: Comments: Sinus rate of 60, no ST changes, T wave inversion leads III flattening in aVF. Similar to an EKG 5 days ago. Discharge Plan Triage Chief Complaint: Fall ED Provider: David Kim Dx/Rx/DC Orders Clinical Impression: CHI (closed head injury), Contusion of scalp, Contusion of right shoulder, Contusion of hip, right, Fall, Anemia Instructions: Anemia, ED Contusion, Upper Extremity, ED Scalp Contusion, ED Head Injury (Adult), ED Shoulder Contusion Prescriptions: New oxycodone-acetaminophen [Percocet] 5-325 mg tablet 1 tab PO Q6H PRN (Reason: pain) 3 Days Qty: 12 0RF No Action albuterol sulfate [ProAir HFA] 90 mcg/actuation HFA aerosol inhaler 2 puff INHALATION Q4H PRN (Reason: shortness of breath or wheezing) venlafaxine 75 mg capsule,extended release 24hr 75 mg PO DAILY Ensure Compact Liquid 118 ml PO DAILY Label Comments: 2 ENSURE'S DAILY carbidopa-levodopa 50-200 mg tablet extended release See Rx Instructions .ROUTE .COMPLEX Qty: 90 3RF Rx Instructions: Take 1 tablet PO daily for one week then 1 BID for one week then 1 TID thereafter. levetiracetam [Keppra] 500 mg tablet 500 mg PO BID Qty: 30 3RF Dulera 100-5 mcg/actuation Hfa Aerosol Inhaler 2 puff INHALATION Q12H PRN (Reason: sob) venlafaxine 37.5 mg capsule,extended release 24hr 37.5 mg PO DAILY Label Comments: TAKE 1 CAPSULE BY MOUTH ONCE DAILY WITH 75MG CAPSULE . APPOINTMENT REQUIRED FOR FUTURE REFILLS Rx Instructions: Take daily with 75 mg dose clonazepam 1 mg tablet 1 mg PO BID atorvastatin 80 mg tablet 80 mg PO QHS Label Comments: TAKE 1 TABLET BY MOUTH ONCE DAILY mirtazapine 7.5 mg tablet 7.5 mg PO QHS Label Comments: TAKE 1 TABLET BY MOUTH AT BEDTIME metoprolol succinate 100 mg tablet extended release 24 hr 100 mg PO DAILY Qty: 0 0RF Label Comments: TAKE (1) TABLET BY MOUTH ONCE DAILY Rx Instructions: Hold for heart less than 60 or systolic blood pressure less than 100 mmHg. furosemide [Lasix] 20 mg tablet 20 mg PO DAILY PRN (Reason: leg swelling) Qty: 30 0RF Rx Instructions: Do not take if systolic blood pressure is less than 110 mmHg spironolactone 50 mg tablet 50 mg PO DAILY Qty: 0 0RF Label Comments: TAKE 1 TABLET BY MOUTH ONCE DAILY. Rx Instructions: Hold if serum potassium more than 4.5 tizanidine 4 mg tablet 4 mg PO Q8H PRN (Reason: muscle spasticity) Qty: 15 0RF losartan 25 mg tablet 100 mg PO DAILY Rx Instructions: Hold for SBP less than 110 mmHg nitrofurantoin monohyd/m-cryst [nitrofurantoin monohyd/m-cryst] 100 MG capsule 100 mg PO Q12 Qty: 14 0RF sulfamethoxazole-trimethoprim [sulfamethoxazole-trimethoprim] 1 TABLET tablet 1 tab PO BID Qty: 20 0RF Xarelto 20 mg Tablet 20 mg PO DAILY Rx Instructions: must administer with evening meal Primary Care Provider: Alvarez Montanez Referrals: Alvarez Montanez MD [Primary Care Provider] - 3-5 Days Activity Restrictions/Additional Instructions: Trauma scans head and neck negative. X-ray right shoulder right hip negative. Labs with anemia hemoglobin 7.3. Disposition Disposition: Home, Self Care Discharge Date/Time: 01/15/22 22:19
[2022-01-15 20:01] VITALS: BP 99/67; PULSE 60; RESP 15; O2SAT 100
[2022-01-15] MEDS: 0.9% Normal Saline 1,000 ML 1000 ML IV (20:06)
[2022-01-15] MEDS: fentaNYL 100 MCG/2 ML Ampul 50 MCG IV (20:09)
[2022-01-15 20:21] LABS: Absolute Lymphocyte Count 2.34 X10^3/uL (0.83-4.51); Absolute Neutrophil Count 4.8 X10^3/uL (2.0-7.7); Basophil# 0.05 X10^3/uL; Basophil% 0.6 % (0-1); Eosinophil# 0.14 X10^3/uL; Eosinophils% 1.8 % (0-5); Hematocrit 24.9 % (37-47); Hemoglobin 7.3 g/dL (12.0-15.0); Lymphocyte # 2.34 X10^3/ul (0.83-4.51); Lymphocyte % 30.2 % (19-41); Mean Corp Hgb Conc 29.3 g/dL (32-36); Mean Corpuscular Hgb 27.5 pg (27.0-32.0); Mean Platelet Vol. 11.2 fl (6.2-12.0); Monocyte# 0.45 X10^3/uL; Monocyte% 5.8 % (0-10); NRBC Flagged by Analyzer 0 % (0-5); Neutrophil # 4.76 X10^3/uL (2.7-7.7); Neutrophil % 61.3 % (47-70); Platelet Count 272 K/mm3 (150-450); RBC Distribution Width CV 14.6 % (11.6-14.6); RBC Distribution Width SD 50.2 fl (35.1-43.9); Red Blood Count 2.65 M/mm3 (4.2-5.4); White Blood Count 7.8 K/mm3 (4.4-11.0)
[2022-01-15 20:30] LABS: International Normalized Ratio 1.7; Prothrombin Time (Protime)PT. 19.6 SECONDS (11.7-14.9)
--- NOTE | 2022-01-15 20:30 | RAD_ITS ---
INDICATION: injury EXAMINATION/TECHNIQUE: X-RAY - RIGHT XR Hip Unilateral with Pelvis when performed; 2-3 Views 3 VIEWS COMPARISON: None. FINDINGS: SOFT TISSUES: No soft tissue swelling or gas. No radiopaque foreign body. BONES/JOINTS: No acute fracture or subluxation.. Normal alignment. Preservation of the joint space.. No sclerotic or destructive changes observed. There is normal appearance of the visualized pelvic ring, sacrum, and sacroiliac joints. RAD/HIP, UNI W/ Pelvis 2-3 Views IMPRESSION: Negative. Electronically Signed: Javier Lam MD at 21:01 EDT ,
[2022-01-15 20:31] LABS: Partial Thromboplast Time 41.2 Seconds (24.1-36.2)
[2022-01-15 20:47] LABS: Anion Gap 3 (5-15); BUN 37 mg/dL (7-18); BUN/Creat Ratio 30.1 RATIO (10-20); Calcium,Total 8.7 mg/dL (8.5-10.1); Chloride 111 mmol/L (98-107); Creatinine, Serum 1.23 mg/dL (0.55-1.02); EST Glomerular Filtration Rate 48 mL/min (>60); Est Glom Filt Rate - Afr Amer 58 mL/min (>60); Estimated Creatinine Clearance 47.81 ml/min; Glucose 89 mg/dL (74-106); Potassium 4.6 mmol/L (3.5-5.1); Sodium Level 138 mmol/L (136-145); Troponin-I HS < 3 pg/mL (3.0-54.0)
[2022-01-15 21:00] VITALS: BP 100/58; PULSE 55; RESP 16; O2SAT 100
--- NOTE | 2022-01-15 21:30 | ED.RN ---
PT WAS ABLE TO GET HERSELF OUT OF BED SLOWLY AND STAND AT THE BEDSIDE AND GET HERSELF BACK INTO BED. PT REPORTS SHE IS OK WITH BEING DISCHARGED HOME
[2022-01-15] MEDS: oxyCODONE 5 MG Tablet PO (21:58)
[2022-01-15 22:00] VITALS: BP 107/71; PULSE 56; RESP 17; O2SAT 99
[2022-01-15 22:06] VITALS: BP 107/71; PULSE 56; RESP 17; O2SAT 99
== END 2022-01-15 22:19 | disposition home or self-care (01) ==
PROVIDERS: Emergency Provider Emergency Medicine; PCP Internal Medicine; Visit Provider Emergency Medicine
DX: S00.03XA Contusion of scalp, initial encounter (principal); S40.011A Contusion of right shoulder, initial encounter; S70.01XA Contusion of right hip, initial encounter; W19.XXXA Unspecified fall, initial encounter; J44.9 Chronic obstructive pulmonary disease, unspecified; I11.0 Hypertensive heart disease with heart failure; I50.9 Heart failure, unspecified; E66.01 Morbid (severe) obesity due to excess calories; I25.10 Atherosclerotic heart disease of native coronary artery without angina pectoris; G40.909 Epilepsy, unspecified, not intractable, without status epilepticus; E78.5 Hyperlipidemia, unspecified; D64.9 Anemia, unspecified; E03.9 Hypothyroidism, unspecified; G47.33 Obstructive sleep apnea (adult) (pediatric); Z79.01 Long term (current) use of anticoagulants; Z99.81 Dependence on supplemental oxygen; Z87.891 Personal history of nicotine dependence; Z86.73 Personal history of transient ischemic attack (TIA), and cerebral infarction without residual deficits
CPT/HCPCS: 70450; 72125; 73030; 73502; 80048; 84484; 85025; 85610; 85730; 93005; 96361; 96374; 99285; J7030; A4216

== ENCOUNTER 2022-01-17 23:31 | Observation (INO) | payer MEDICAID, SELFPAY ==
[2022-01-17 23:34] VITALS: BP 105/78; PULSE 56; RESP 16; TEMP 36.9; O2SAT 100; BMI 43.9
--- NOTE | 2022-01-17 23:51 | CT_ITS ---
STUDY: CT BRAIN WITHOUT CONTRAST REASON FOR EXAM: Female, 56 years old. headache, head injury 3 days ago RADIATION DOSAGE (If Supplied By Facility): CTDIvol = ( 44.99 ) mGy, DLP = ( 812.98 ) mGycm TECHNIQUE: Transaxial CT imaging of the brain was performed without administration of intravenous contrast material. Individualized dose optimization techniques were used for this CT. COMPARISON: CT brain 01/15/2022 FINDINGS: BRAIN: Normal kramer/white matter differentiation. VENTRICLES: No hydrocephalus. EXTRA-AXIAL SPACES: No hemorrhages, fluid collections, or masses. CALVARIUM/SKULL BASE: Normal. FACE/SINUSES: Visualized portions normal. SOFT TISSUES: Normal. OTHER: None. CONCLUSION: No intracranial hemorrhage or depressed calvarial fracture. Electronically Signed: Aldo Osullivan MD at 1:00 EDT , CT/Brain/Head without Contrast IMPRESSION: undefined
--- NOTE | 2022-01-17 23:52 | EKG12_ITS ---
Test Reason : HEADACHE Blood Pressure : / mmHG Vent. Rate : 057 BPM Atrial Rate : 056 BPM P-R Int : 000 ms QRS Dur : 100 ms QT Int : 426 ms P-R-T Axes : 000 005 022 degrees QTc Int : 414 ms Sinus vs Ectopic atrial rhythm Abnormal ECG Confirmed by GISELA BATISTA, FAY ([id number]), content editor SAUMYA PERAZA ([id number]) on 01/19/2022 11:06:15 AM Referred By: JAYSON Confirmed By:FAY HIGGINS MD
[2022-01-18] VITALS (21 sets, daily range): BP systolic 92–127; BP diastolic 57–84; PULSE 55–72; RESP 16–21; TEMP 36.3–37.1; O2SAT 96–100; BMI 42.8
[2022-01-18 00:19] LABS: Absolute Lymphocyte Count 2.28 X10^3/uL (0.83-4.51); Absolute Neutrophil Count 4.1 X10^3/uL (2.0-7.7); Basophil# 0.03 X10^3/uL; Basophil% 0.4 % (0-1); Eosinophil# 0.13 X10^3/uL; Eosinophils% 1.8 % (0-5); Hematocrit 24.5 % (37-47); Hemoglobin 7.2 g/dL (12.0-15.0); Lymphocyte # 2.28 X10^3/ul (0.83-4.51); Mean Corp Hgb Conc 29.4 g/dL (32-36); Mean Corpuscular Hgb 27.6 pg (27.0-32.0); Mean Corpuscular Volume 93.9 fL (81-99); Monocyte# 0.54 X10^3/uL; Monocyte% 7.6 % (0-10); NRBC Flagged by Analyzer 0 % (0-5); Neutrophil # 4.13 X10^3/uL (2.7-7.7); Neutrophil % 57.9 % (47-70); Platelet Count 249 K/mm3 (150-450); RBC Distribution Width CV 14.6 % (11.6-14.6); RBC Distribution Width SD 50.7 fl (35.1-43.9); Red Blood Count 2.61 M/mm3 (4.2-5.4); White Blood Count 7.1 K/mm3 (4.4-11.0)
[2022-01-18] MEDS: Morphine 4 MG/ML Syringe IV (00:22)
[2022-01-18] MEDS: Ondansetron 4 MG/2 ML Vial IV (00:22)
--- NOTE | 2022-01-18 00:22 | EX.ED.VIS.HA ---
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 Patient states she had a fall 3 days ago and hit her head. She is been having a headache since. She is also been having associated nausea and vomiting. She was seen in the ER at that time and had a negative head CT as well as no acute fracture or injury noticed on her cervical spine imaging. Patient does have a chronic anemia that was felt to be stable. She feels that her headache is worse in the back of her head where she hit her head but she also has pressure behind her eyes. Denies any photosensitivity. Has been having multiple episodes of vomiting since and states that she has some pain in her epigastric region. She notes she did stumble earlier today and fell against the wall. She denies hitting her head again. Patient lives home with her dog. She states she does not feel safe at home and is working on getting placement to use some type of assisted living. She has been taking Percocet with no relief of her symptoms. Denies any associated numbness or tingling. Denies any acute vision changes. Has been having some intermittent epistaxis but denies any other complaints at this time. [facility] Medical History Abnormal cardiac enzyme level Acute and chronic respiratory failure Acute respiratory failure with hypoxia and hypercapnia LEIGH ANN (acute kidney injury) Anemia Anemia Anxiety and depression Back pain Bilateral peripheral pulmonary emboli BiPAP (biphasic positive airway pressure) dependence Breast infection Cancer Cardiac arrest Cardiology follow-up encounter Cardiopulmonary arrest with successful resuscitation Chest pain Chronic anemia Chronic narcotic dependence Compression fracture of T5 vertebra Compression fracture of T6 vertebra Congestive heart failure COPD (chronic obstructive pulmonary disease) COPD exacerbation Coronary artery disease CPAP (continuous positive airway pressure) dependence Debility Dependence on continuous supplemental oxygen Depression Diastolic dysfunction DVT (deep vein thrombosis) in DVT (deep venous thrombosis) Essential hypertension Fall Former smoker GERD (gastroesophageal reflux disease) HLD (hyperlipidemia) Hx of cardiovascular stress test Hx of echocardiogram Hypertension Hypothyroidism Morbid obesity MSSA (methicillin susceptible Staphylococcus aureus) pneumonia Myocardial infarct Obesity On home oxygen therapy STEPHANIE (obstructive sleep apnea) Pulmonary embolism Restrictive lung disease Right rib fracture Seizure disorder Seizures Sleep apnea SOB (shortness of breath) Syncope and collapse TIA (transient ischemic attack) TIA (transient ischemic attack) Wears dentures Wears glasses Home Medications albuterol sulfate 90 mcg/actuation aerosol inhaler (ProAir HFA) 2 puff inhalation Q4H PRN shortness of breath or wheezing 08/01/17 [History Last Taken 03/03/18] venlafaxine 75 mg capsule,extended release 24 hr 75 mg PO DAILY Check with primary doctor 03/02/21 [History Last Taken 08/25/21] mometasone-formoterol HFA 100 mcg-5 mcg/actuation aerosol inhaler (Dulera) 2 puff inhalation Q12H PRN sob 03/15/21 [History Last Taken Unknown] venlafaxine 37.5 mg capsule,extended release 24 hr 37.5 mg PO DAILY Depression 04/25/21 [History Last Taken 08/25/21] clonazepam 1 mg tablet 1 mg PO BID anxiety 05/09/21 [History Last Taken 08/25/21] food supplemt, lactose-reduced (Ensure Compact) 118 ml PO DAILY supplement 05/24/21 [History Last Taken 08/25/21] atorvastatin 80 mg tablet 80 mg PO QHS cholesterol 08/26/21 [History Last Taken 08/25/21] mirtazapine 7.5 mg tablet 7.5 mg PO QHS sleep 08/26/21 [History Last Taken Unknown] furosemide 20 mg tablet (Lasix) 20 mg PO DAILY PRN leg swelling #30 tabs 08/31/21 [Rx Last Taken 08/25/21] metoprolol succinate 100 mg tablet,extended release 24 hr 100 mg PO DAILY blood pressure #0 tabs 08/31/21 [Rx Last Taken 08/25/21] spironolactone 50 mg tablet 50 mg PO DAILY diuretic #0 tabs 08/31/21 [Rx Last Taken 08/25/21] tizanidine 4 mg tablet 4 mg PO Q8H PRN muscle spasticity #15 tabs 09/22/21 [Rx Last Taken Unknown] losartan 25 mg tablet 100 mg PO DAILY 11/03/21 [History Last Taken Unknown] carbidopa ER 50 mg-levodopa 200 mg tablet,extended release See Rx Instructions .Route .COMPLEX #90 tabs 12/12/21 [Rx Last Taken Unknown] levetiracetam 500 mg tablet (Keppra) 500 mg PO BID seizures #30 tabs 12/12/21 [Rx Last Taken Unknown] oxycodone-acetaminophen 5 mg-325 mg tablet (Percocet) 1 tab PO Q6H PRN pain 3 days #12 tabs 01/15/22 [Rx Last Taken Unknown] rivaroxaban 20 mg tablet (Xarelto) 20 mg PO DAILY 01/15/22 [History Last Taken Unknown] Allergy/AdvReac Type Severity Reaction Status Date / Time aspirin Allergy Hives Verified 01/15/22 19:22 dicyclomine Allergy Itching Verified 01/15/22 19:22 ibuprofen Allergy Hives Verified 01/15/22 19:22 ketorolac tromethamine Allergy Angioedema Verified 01/15/22 19:22 [From Toradol] meperidine HCl [From Demerol] Allergy seizures Verified 01/15/22 19:22 nitroglycerin Allergy Angioedema Verified 01/15/22 19:22 nut - unspecified Allergy Hives Verified 01/15/22 19:22 Penicillins [PCN] Allergy Hives Verified 01/15/22 19:22 tramadol HCl [From Ultram] Allergy Angioedema Verified 01/15/22 19:22 Family History Brother Myocardial infarction Asthma Mental disorder Psychiatric care Suicide attempt Father Colon cancer Brother Mental disorder Aunt Parkinson disease Sister Breast cancer Cervical cancer Ovarian cancer Sister Cervical cancer Ovarian cancer Mother Cancer History of blood clots Hypertension Surgical History History of appendectomy History of cardiac catheterization History of cholecystectomy History of cholecystectomy History of esophagogastroduodenoscopy (EGD) History of hysterectomy History of left breast biopsy History of left heart catheterization (LHC) (~04/22/21) History of lumpectomy of left breast Hx of appendectomy S/P lumpectomy, left breast Social History household members: none Smoking Status: Former smoker quit date: 01/21/16 pack-years: 32 second hand exposure: Yes alcohol intake: never substance use type: does not use ROS ROS ED Constitutional Constitutional ED: Denies chills or fever(s) Eyes Eyes: Denies blurry vision or change in vision ENT ENT ED: Reports other Details: Intermittent nosebleeds ; Denies rhinorrhea or sore throat Cardiovascular Cardiovascular: Denies chest pain or palpitations Respiratory/Chest Respiratory/Chest: Denies cough or dyspnea Gastrointestinal Gastrointestinal: Reports abdominal pain, nausea and vomiting; Denies constipation, diarrhea or melena Genitourinary Genitourinary ED: Denies dysuria or hematuria Musculoskeletal Musculoskeletal: Reports back pain Integumentary Denies Abrasions or rash Neurologic Neurologic: Reports headache(s) and other Details: Chronic tremor/spastic movements of the extremities from prior stroke/cardiac arrest ; Denies paresthesias or weakness Psychiatric Psychiatric: Denies anxiety Hematologic/Lymphatic Hematologic/Lymphatic: Reports easy bleeding and easy bruising EXAM Physical Exam Const Vital Signs: 01/17/22 23:34 01/18/22 00:28 01/18/22 02:00 Temperature 98.4 F Temperature Source Oral Pulse Rate 56 L 56 L 59 L Respiratory Rate 16 16 20 H Blood Pressure 105/78 92/57 L 117/71 Blood Pressure Mean 87 68 86 Pulse Ox 100 100 100 Oxygen Delivery Method Nasal Cannula Nasal Cannula Nasal Cannula Oxygen Flow Rate (L/min) 3 3 2 Positive well nourished, well developed and obese General Appearance ED: well developed, NAD and pallor Nutritional Appearance: obese HEENT Reports normocephalic, TM's clear and moist mucous membranes HEENT Narrative: Cephalhematoma at the vertex of the scalp present, no active epistaxis appreciated. Normal oropharynx. Tympanic Membrane ED: Yes TM's clear Eyes PERRL and EOMs intact bilaterally Neck supple Neck Narrative: Normal range of motion Resp normal respiratory effort and clear to auscultation bilaterally Cardio regular rate, regular rhythm and no murmurs GI non-tender and non-distended Auscultation: normoactive bowel sounds Back/Spine no CVA tenderness Cervical Spine: Negative for cervical spine tenderness Thoracic Spine / Upper Back: Negative for thoracic spinal tenderness Lumbar Spine / Lower Back: Negative for lumbar spinal tenderness Extremity normal to inspection and full ROM General Extremety ED: Negative for edema or tenderness General Extremity: Negative for edema Neuro oriented x3 and CN's II-XII intact bilaterally Neuro Narrative: Intermittent spastic movements of the extremities with tremor. No focal deficits appreciated. Speech: speech normal Psych mental status grossly normal Skin Skin Narrative: Approximately 4 cm circumferential area of ecchymosis along the left thoracic back, no associated underlying crepitus or bony tenderness. General Skin Exam: pallor MDM MDM MDM Narrative Medical decision making narrative: Patient evaluated for headache. She is on Xarelto and had a head injury with a fall couple days ago. She did have a negative head CT at this time however there is concern for delayed bleed. In addition patient had another fall today where she hit her back. She does have bruising in the area. Do not suspect a rib fracture based on physical exam. Patient has slightly lower but overall stable anemia with a hemoglobin of 7.2 today. No signs of active bleeding. CMP, CBC and troponin otherwise unremarkable. CT of the brain does not show any acute process. Initially patient stated that she would like to go home and work on finding assisted living outpatient but on repeat evaluation she states she spoke with her sister and would like to come to the hospital. I think this is prudent given the patient's multiple falls, anticoagulation and comorbidities. Patient is given IV morphine for her headache as well as some IV fluids and IV Zofran. On repeat evaluation she still has a headache however it slightly improved. She is given a dose of Solu-Medrol to see this helps with her headache. We will try to avoid further opioids for headache control. Lab Data Attestation: I reviewed the patient's lab results. Labs: Laboratory Results - last 24 hr 01/18/22 01/18/22 01/18/22 00:10 00:10 00:10 WBC 7.1 RBC 2.61 L Hgb 7.2 L Hct 24.5 L MCV 93.9 MCH 27.6 MCHC 29.4 L RDW Std Deviation 50.7 H RDW Coeff of Immanuel 14.6 Plt Count 249 MPV 11.0 Immature Gran % (Auto) 0.300 Neut % (Auto) 57.9 Lymph % (Auto) 32.0 [place] % (Auto) 7.6 Eos % (Auto) 1.8 Baso % (Auto) 0.4 Absolute Neuts (auto) 4.1 Absolute Lymphs (auto) 2.28 Nucleated RBC % 0 PT 17.0 H INR 1.4 Sodium 140 Potassium 4.5 Chloride 107 Carbon Dioxide 28.0 Anion Gap 5 BUN 20 H Creatinine 0.87 Estim Creat Clear Calc 64.97 Est GFR (MDRD) Af Amer 87 Est GFR (MDRD) Non-Af 72 BUN/Creatinine Ratio 23.0 H Glucose 101 Calcium 8.8 Total Bilirubin 0.20 AST 57 H ALT 23 Alkaline Phosphatase 115 Troponin I High Sens 4 Total Protein 7.4 Albumin 3.4 Globulin 4.0 Albumin/Globulin Ratio 0.8 L Lipase 139 Radiography Diagnostic Testing: Clinical Impression(s) from Imaging Studies Brain CT 01/17/22 23:51 IMPRESSION: undefined Rhythm Strip Rhythm Strip: Sinus Rhythm Rate: 57 Ectopy: None EKG Initial EKG: Attestation: I personally reviewed and interpreted this EKG as follows: Comments: Junctional rhythm at a rate of 57 Normal axis Normal QRS and QTc Normal ST segments Discharge Plan Dx/Rx/DC Orders Clinical Impression: Contusion, chest wall, Anemia, Headache, Falls frequently, H/O long-term (current) use of anticoagulants Disposition Disposition: Acute Care Hospital [facility] Discharge Date/Time: 01/18/22 03:50
[2022-01-18 00:38] LABS: ALB/GLOB Ratio 0.8 RATIO (0.9-2.4); AST(SGOT) 57 U/L (15-37); Alanine Aminotransfer ALT/SGPT 23 U/L (13-56); Albumin, Serum 3.4 g/dL (3.2-5.0); Alkaline Phosphatase 115 U/L (45-117); Anion Gap 5 (5-15); BUN 20 mg/dL (7-18); Calcium,Total 8.8 mg/dL (8.5-10.1); Chloride 107 mmol/L (98-107); Creatinine, Serum 0.87 mg/dL (0.55-1.02); EST Glomerular Filtration Rate 72 mL/min (>60); Est Glom Filt Rate - Afr Amer 87 mL/min (>60); Estimated Creatinine Clearance 64.97 ml/min; Glucose 101 mg/dL (74-106); International Normalized Ratio 1.4; Lipase 139 U/L (73-393); Potassium 4.5 mmol/L (3.5-5.1); Protein, Total 7.4 g/dL (6.4-8.2); Sodium Level 140 mmol/L (136-145); Troponin-I HS 4 pg/mL (3.0-54.0)
--- NOTE | 2022-01-18 02:16 | HP.PCM.HOS_ITS ---
HPI - General General Date of Admission: 01/18/22 Date of Service: 01/18/22 Chief Complaint: Headache, N/V s/p recent fall. 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, Parkinson's Disease currently wheelchair-bound, Anxiety and Depression, Hypothyroidism, CAD w/ Hx PR/Cardiac arrest, Diastolic CHF, GERD, Former tobacco use, Seizure disorder, Hx TIA, Chronic narcotic dependence who presents to the [facility] ED on 01/18/22 with history of mechanical fall 3 days prior with trauma of the head with headache posteriorly noted to be throbbing in nature, 7/10 in severity since with episodes of nausea as well as emesis with the ED evaluation at the time of fall with negative CT of the head with no acute fracture or injury of the cervical spine either however she feels her headache is worsened primarily located in the posterior region with sensation of increased pressure behind her eyes with no phonophobia or photophobia however she feels more unwell and fatigued and states she is unable to take care of her self prompting ED evaluation. She does report history of intermittent epistaxis on her anticoagulant therapy. She denies any other neurological deficits associated. Work-up in the ED included T98.4, heart rate 56, BP 105/78, respiratory rate 16, 100% on 3 L nasal cannula, CBC w/ with WBC 7.1, hemoglobin 7.2, platelet 249 without shift, coags with PT 17, INR 1.4, CMP with BUN/creat 20/0.87 otherwise unremarkable, lipase 139, T of the brain with no acute intracranial findings, EKG with sinus rhythm, junctional with no acute evidence of ischemia. [facility] Medical History Abnormal cardiac enzyme level Acute and chronic respiratory failure Acute respiratory failure with hypoxia and hypercapnia LEIGH ANN (acute kidney injury) Anemia Anemia Anxiety and depression Back pain Bilateral peripheral pulmonary emboli BiPAP (biphasic positive airway pressure) dependence Breast infection Cancer Cardiac arrest Cardiology follow-up encounter Cardiopulmonary arrest with successful resuscitation Chest pain Chronic anemia Chronic narcotic dependence Compression fracture of T5 vertebra Compression fracture of T6 vertebra Congestive heart failure COPD (chronic obstructive pulmonary disease) COPD exacerbation Coronary artery disease CPAP (continuous positive airway pressure) dependence Debility Dependence on continuous supplemental oxygen Depression Diastolic dysfunction DVT (deep vein thrombosis) in DVT (deep venous thrombosis) Essential hypertension Fall Former smoker GERD (gastroesophageal reflux disease) HLD (hyperlipidemia) Hx of cardiovascular stress test Hx of echocardiogram Hypertension Hypothyroidism Morbid obesity MSSA (methicillin susceptible Staphylococcus aureus) pneumonia Myocardial infarct Obesity On home oxygen therapy STEPHANIE (obstructive sleep apnea) Pulmonary embolism Restrictive lung disease Right rib fracture Seizure disorder Seizures Sleep apnea SOB (shortness of breath) Syncope and collapse TIA (transient ischemic attack) TIA (transient ischemic attack) Wears dentures Wears glasses Home Medications albuterol sulfate 90 mcg/actuation aerosol inhaler (ProAir HFA) 2 puff inhal ation Q4H PRN shortness of breath or wheezing 08/01/17 [History Last Taken 03/03/18] venlafaxine 75 mg capsule,extended release 24 hr 75 mg PO DAILY Check with primary doctor 03/02/21 [History Last Taken 08/25/21] mometasone-formoterol HFA 100 mcg-5 mcg/actuation aerosol inhaler (Dulera) 2 puff inhalation Q12H PRN sob 03/15/21 [History Last Taken Unknown] venlafaxine 37.5 mg capsule,extended release 24 hr 37.5 mg PO DAILY Depression 04/25/21 [History Last Taken 08/25/21] clonazepam 1 mg tablet 1 mg PO BID anxiety 05/09/21 [History Last Taken 08/25/21] food supplemt, lactose-reduced (Ensure Compact) 118 ml PO DAILY supplement 05/24/21 [History Last Taken 08/25/21] atorvastatin 80 mg tablet 80 mg PO QHS cholesterol 08/26/21 [History Last Taken 08/25/21] mirtazapine 7.5 mg tablet 7.5 mg PO QHS sleep 08/26/21 [History Last Taken Unknown] furosemide 20 mg tablet (Lasix) 20 mg PO DAILY PRN leg swelling #30 tabs 08/31/21 [Rx Last Taken 08/25/21] metoprolol succinate 100 mg tablet,extended release 24 hr 100 mg PO DAILY blood pressure #0 tabs 08/31/21 [Rx Last Taken 08/25/21] spironolactone 50 mg tablet 50 mg PO DAILY diuretic #0 tabs 08/31/21 [Rx Last Taken 08/25/21] tizanidine 4 mg tablet 4 mg PO Q8H PRN muscle spasticity #15 tabs 09/22/21 [Rx Last Taken Unknown] losartan 25 mg tablet 100 mg PO DAILY 11/03/21 [History Last Taken Unknown] carbidopa ER 50 mg-levodopa 200 mg tablet,extended release See Rx Instructions .Route .COMPLEX #90 tabs 12/12/21 [Rx Last Taken Unknown] levetiracetam 500 mg tablet (Keppra) 500 mg PO BID seizures #30 tabs 12/12/21 [Rx Last Taken Unknown] oxycodone-acetaminophen 5 mg-325 mg tablet (Percocet) 1 tab PO Q6H PRN pain 3 days #12 tabs 01/15/22 [Rx Last Taken Unknown] rivaroxaban 20 mg tablet (Xarelto) 20 mg PO DAILY 01/15/22 [History Last Taken Unknown] Allergy/AdvReac Type Severity Reaction Status Date / Time aspirin Allergy Hives Verified 01/15/22 19:22 dicyclomine Allergy Itching Verified 01/15/22 19:22 ibuprofen Allergy Hives Verified 01/15/22 19:22 ketorolac tromethamine Allergy Angioedema Verified 01/15/22 19:22 [From Toradol] meperidine HCl [From Demerol] Allergy seizures Verified 01/15/22 19:22 nitroglycerin Allergy Angioedema Verified 01/15/22 19:22 nut - unspecified Allergy Hives Verified 01/15/22 19:22 Penicillins [PCN] Allergy Hives Verified 01/15/22 19:22 tramadol HCl [From Ultram] Allergy Angioedema Verified 01/15/22 19:22 Family History Brother Myocardial infarction Asthma Mental disorder Psychiatric care Suicide attempt Father Colon cancer Brother Mental disorder Aunt Parkinson disease Sister Breast cancer Cervical cancer Ovarian cancer Sister Cervical cancer Ovarian cancer Mother Cancer History of blood clots Hypertension Surgical History History of appendectomy History of cardiac catheterization History of cholecystectomy History of cholecystectomy History of esophagogastroduodenoscopy (EGD) History of hysterectomy History of left breast biopsy History of left heart catheterization (LHC) (~04/22/21) History of lumpectomy of left breast Hx of appendectomy S/P lumpectomy, left breast Social History household members: none Smoking Status: Former smoker quit date: 01/21/16 pack-years: 32 second hand exposure: Yes alcohol intake: never substance use type: does not use ROS ROS Narrative Admission Review of Systems: CONSTITUTIONAL: No weight loss, fever, chills, + weakness or fatigue. HEENT: Eyes: No visual loss, blurred vision, double vision or yellow sclerae. Ears, Nose, Throat: No hearing loss, sneezing, congestion, runny nose or sore throat. SKIN: No rash or itching, lesions, wounds. CARDIOVASCULAR: No chest pain, chest pressure or chest discomfort, palpitations, edema, orthopnea, syncopal events. RESPIRATORY: No shortness of breath, cough or sputum, wheezing, hemoptysis. GASTROINTESTINAL: + anorexia, nausea, vomiting, No diarrhea, abdominal pain, melena, BRBPR. GENITOURINARY: No dysuria, frequency, urgency or retention. NEUROLOGICAL: + headache, parkinson's disease, essential tremors, wheelchair bound, No dizziness, syncope, paralysis, ataxia, numbness or tingling in the extremities, change in bowel or bladder control, seizure. MUSCULOSKELETAL: + muscle, back pain, joint pain or stiffness. HEMATOLOGIC: + anemia, bleeding or bruising. LYMPHATICS: No enlarged nodes. No history of splenectomy. PSYCHIATRIC: + history of depression or anxiety. ENDOCRINOLOGIC: No reports of sweating, cold or heat intolerance. No polyuria or polydipsia. ALLERGIES: No history of asthma, hives, eczema or rhinitis. Vital Signs Vital Signs Vital Signs: 01/17/22 23:34 01/18/22 00:28 Temperature 98.4 F Temperature Source Oral Pulse Rate 56 L 56 L Respiratory Rate 16 16 Blood Pressure 105/78 92/57 L Blood Pressure Mean 87 68 Pulse Ox 100 100 Oxygen Delivery Method Nasal Cannula Nasal Cannula Oxygen Flow Rate (L/min) 3 3 Weight Weight: 263 lb 14.293 oz Body Mass Index (BMI) 43.9 Physical Exam Narrative Physical Examination: General: Awake, alert, oriented x 3 and cooperative, seated upright in the ED bed, fatigued, notes ongoing posterior headache. Skin: Normal color, normal turgor, no icterus, no cyanosis. HEENT: AT/NC, EOMI, PERRLA, mildly dry MM, no carotid bruits or JVD noted; however, thickened neck makes evaluation difficult. Lungs: Distant, mildly diminished, greater bases, appropriate effort, no rales, ronchi or wheezing. Heart: Currently regular rate and rhythm; no gallop, rub audible. Abdomen: Soft, morbidly obese, NTTP including in the epigastric region, ND, distant normal BS, no obvious evidence of HSM; however, habitus makes evaluation difficult. Extremities: No cyanosis, clubbing, or edema. Neurological: Patient awake, alert, oriented as noted, cognitive function appears intact; pupils equally reactive to light and accommodation, cranial nerves II-XII grossly normal, moving all 4 extremities, no focal deficits but chronic underlying debilities with Parkinson's disease, bilateral upper extremity essential tremors, strength moderately to severely global decreased Psychiatric: Affect appears fatigued otherwise normal despite headache complaint, no acute evidence of depressive or anxiety feelings. Results Lab / Micro Data Result Diagrams: 01/18/22 00:10 01/18/22 00:10 Labs: Laboratory Results - last 24 hr 01/18/22 00:10: WBC 7.1, RBC 2.61 L, Hgb 7.2 L, Hct 24.5 L, MCV 93.9, MCH 27.6, MCHC 29.4 L, RDW Std Deviation 50.7 H, RDW Coeff of Immanuel 14.6, Plt Count 249, MPV 11.0, Immature Gran % (Auto) 0.300, Neut % (Auto) 57.9, Lymph % (Auto) 32.0, [place] % (Auto) 7.6, Eos % (Auto) 1.8, Baso % (Auto) 0.4, Absolute Neuts (auto) 4.1, Absolute Lymphs (auto) 2.28, Nucleated RBC % 0 01/18/22 00:10: PT 17.0 H, INR 1.4 01/18/22 00:10: Sodium 140, Potassium 4.5, Chloride 107, Carbon Dioxide 28.0, Anion Gap 5, BUN 20 H, Creatinine 0.87, Estim Creat Clear Calc 64.97, Est GFR (MDRD) Af Amer 87, Est GFR (MDRD) Non-Af 72, BUN/Creatinine Ratio 23.0 H, Glucose 101, Calcium 8.8, Total Bilirubin 0.20, AST 57 H, ALT 23, Alkaline Phosphatase 115, Troponin I High Sens 4, Total Protein 7.4, Albumin 3.4, Globulin 4.0, Albumin/Globulin Ratio 0.8 L, Lipase 139 Rhythm Strip Rhythm Strip: Sinus Rhythm Rate: 57 Ectopy: None Radiology Impression Brain CT 01/17/22 23:51 IMPRESSION: undefined Assessment & Plan Assessment/Plan (1) Concussion: (2) FTT (failure to thrive) in adult: PLAN: Plan The patient is a 56 y/o F w/ PMHx: Morbid obesity, Chronic Hypoxic Respiratory Failure w/ COPD/Restrictive lung disease, STEPHANIE on BIPAP q HS, HTN, HLD, Chronic anemia, 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, Parkinson's Disease currently wheelchair-bound, Anxiety and Depression, Hypothyroidism, CAD w/ Hx PR/Cardiac arrest, Diastolic CHF, GERD, Former tobacco use, Seizure disorder, Hx TIA, Chron ic narcotic dependence who presents to the [facility] ED on 01/18/22 with history of mechanical fall 3 days prior with trauma of the head with headache since with episodes of nausea as well as emesis with the ED evaluation at the time of fall with negative CT of the head with no acute fracture or injury of the cervical spine either however she feels her headache is worsened primarily located in the posterior region with sensation of increased pressure behind her eyes with no phonophobia or photophobia however she feels more unwell and fatigued and states she is unable to take care of her self prompting ED evaluation. #1. Recent Mechanical fall with trauma to the head with suspected concussion w/ Adult Failure to Thrive: Given difficulty caring for self, recent fall with CT head unremarkable at that time and repeat similar as well as CT cervical spine appropriate with no acute injury suspect given complaints likely associated concussion, will admit to medical surgical floor, maintain on fall precautions, as needed antiemetics, suspect mild abdominal upset secondary to nausea and emesis bouts, encourage strongly brain rest with no TV/phone/reading, consult PT/OT/case management for discharge planning is from discussion likely will need assisted living versus skilled placement. #2. Chronic hypoxic respiratory failure with COPD/restrictive lung disease: We will continue patient chronic home 3L NC supplementation oxygen therapy, hold home inhalers and transition in interim to ATC DuoNeb therapy, as needed albuterol, encourage head of bed and I-S #3. History DVT, PE: Patient with history of DVT as well as bilateral PE, we will continue patient home Xarelto regimen. Patient does report a history of occasional epistaxis, continue to monitor. #4. Chronic normocytic anemia: Admission hemoglobin 7.2, from review of records has been trending down since 09/22/2021 noted to be 10 at that time most recently 01/15/2022 7.3, MCV 93.9, will obtain guaiac, ferritin, folic acid, vitamin B12 and folic acid to be cautious. #5. Chronic diastolic CHF: We will continue patient home relative no spironolactone, Toprol, losartan, statin therapy, judicious hydration. #6. Hypertension: Continue home regimen including spinal tone, metoprolol, statin with hold parameters as needed, PRN hydralazine. #7. Hyperlipidemia: We will continue patient on statin therapy. #8. Parkinson's disease: Complicates presentation, fall susceptible, primarily wheelchair-bound, encourage positional changes, continue Sinemet, therapies consulted as noted. #9. Seizure disorder: We will continue patient home Keppra regimen. #10. Anxiety and depression: We will continue patient home venlafaxine, c lonazepam as well as mirtazapine regimen #11. Reported history of hypothyroidism: From current list on a regimen, TSH and free T4 will be requested and medications clarified. #12. Former tobacco use: Encourage continued tobacco cessation. #13. Chronic pain syndrome on chronic narcotic therapy: Patient on notable narcotic regimen and also sedative regimen concurrently, likely contributes to a cute presentation #1, given long-term usage and to avoid withdrawal will continue home percocet regimen. #14. STEPHANIE: BiPAP nightly. #15. DVT prophylaxis: SCDs, continue patient home Xarelto regimen. #16. CODE status: Patient does not have healthcare power of health care attorney nor living will in place but notes that her sister would certainly be her primary decision- maker if the need should arise. Discussed CODE status at length including difference between FULL code, DNR-CCA and DNR-CC status. Following discussions about the differences in these status, requested DNR-CCA, no intubation status given her extensive medical history. Advanced Care Planning Face to Face Time: 16 minutes. Charges/Coding Visit Charges OBSV E&M: 42877 Initial observation care L3 Procedures Hospitalists Procedures: 63861 Advncd Care Plan 30 Min
[2022-01-18] MEDS: MethylPREDNISolone 125 MG/2 ML Vial 60 MG IV (03:09)
[2022-01-18] MEDS: oxyCODONE 5 MG Tablet PO ×3 (04:37→21:42)
[2022-01-18] MEDS: Acetaminophen 325 MG Tablet 650 MG PO ×4 (04:38→19:52)
[2022-01-18] MEDS: 0.9% Normal Saline 1,000 ML 100 ML IV (04:38)
[2022-01-18] MEDS: Pantoprazole Sodium 20 MG Tablet PO ×3 (04:38→21:37)
[2022-01-18] MEDS: CARBIDOPA/LEVODOPA CR 50/200 Tablet PO ×3 (04:38→21:37)
[2022-01-18] MEDS: 0.9% Saline Lock 10 ML Syringe IV ×2 (04:40→19:29)
[2022-01-18 06:29] LABS: Absolute Lymphocyte Count 1.02 X10^3/uL (0.83-4.51); Absolute Neutrophil Count 7.3 X10^3/uL (2.0-7.7); Basophil# 0.04 X10^3/uL; Basophil% 0.5 % (0-1); Eosinophil# 0.08 X10^3/uL; Eosinophils% 0.9 % (0-5); Hematocrit 22.2 % (37-47); Hemoglobin 6.7 g/dL (12.0-15.0); Lymphocyte # 1.02 X10^3/ul (0.83-4.51); Lymphocyte % 11.6 % (19-41); Mean Corp Hgb Conc 30.2 g/dL (32-36); Mean Corpuscular Hgb 28.4 pg (27.0-32.0); Mean Corpuscular Volume 94.1 fL (81-99); Mean Platelet Vol. 10.5 fl (6.2-12.0); Monocyte# 0.33 X10^3/uL; Monocyte% 3.8 % (0-10); NRBC Flagged by Analyzer 0 % (0-5); Neutrophil # 7.28 X10^3/uL (2.7-7.7); Neutrophil % 82.7 % (47-70); Platelet Count 216 K/mm3 (150-450); RBC Distribution Width CV 14.6 % (11.6-14.6); RBC Distribution Width SD 49.1 fl (35.1-43.9); Red Blood Count 2.36 M/mm3 (4.2-5.4); White Blood Count 8.8 K/mm3 (4.4-11.0)
[2022-01-18 06:59] LABS: Ferritin 7 ng/mL (8-252); Iron 16 ug/dL (50-170); Iron Binding Capacity,Total 391 ug/dL (250-450); PERCENT IRON SATURATION 4.1 % (15.0-55.0)
[2022-01-18 07:11] LABS: ALB/GLOB Ratio 0.8 RATIO (0.9-2.4); AST(SGOT) 51 U/L (15-37); Alanine Aminotransfer ALT/SGPT 17 U/L (13-56); Albumin, Serum 3.1 g/dL (3.2-5.0); Alkaline Phosphatase 112 U/L (45-117); Anion Gap 5 (5-15); BUN 16 mg/dL (7-18); BUN/Creat Ratio 23.8 RATIO (10-20); Calcium,Total 8.3 mg/dL (8.5-10.1); Chloride 107 mmol/L (98-107); Creatinine, Serum 0.67 mg/dL (0.55-1.02); EST Glomerular Filtration Rate 96 mL/min (>60); Est Glom Filt Rate - Afr Amer 116 mL/min (>60); Estimated Creatinine Clearance 84.37 ml/min; Globulin 3.8 g/dL (2.2-4.2); Glucose 109 mg/dL (74-106); Potassium 4.5 mmol/L (3.5-5.1); Protein, Total 6.9 g/dL (6.4-8.2); Sodium Level 139 mmol/L (136-145); T4 Free Direct 0.83 ng/dL (0.76-1.46); Thyroid Stim Hormone (TSH) 2.48 uIU/mL (0.358-3.74)
[2022-01-18] MEDS: Ipratropium/Albuterol Sulfate 3 ML AMPUL.NEB INHALATION ×2 (07:20→19:06)
--- NOTE | 2022-01-18 07:56 | PCM.PN.HOSP ---
Subjective Subjective Follow-up for fall, debility, severe anemia, possible small bowel bleeding and other comorbidities Patient had fall on the back of her head on concrete floor about 3 days ago. Yesterday she also had near fall but could not hold herself against the wall. Objective Data Objective Data Vital Signs: Vital Signs Temp Pulse Resp BP Pulse Ox 98.2 F 57 L 16 127/84 H 96 01/18/22 04:00 01/18/22 07:21 01/18/22 07:21 01/18/22 04:00 01/18/22 07:21 Oxygen Flow Rate (L/min) 2 Oxygen Delivery Method Nasal Cannula Weight: 257 lb 11.526 oz Body Mass Index (BMI) 42.8 Intake & Output: Intake and Output for Last 24 Hours 01/16/22 01/17/22 01/18/22 23:59 23:59 23:59 Intake Total 1000 / 1000 Balance 1000 / 1000 Lab / Micro Data Result Diagrams: 01/18/22 16:49 01/18/22 06:10 Labs: Laboratory Results - last 24 hr 01/18/22 00:10: WBC 7.1, RBC 2.61 L, Hgb 7.2 L, Hct 24.5 L, MCV 93.9, MCH 27.6, MCHC 29.4 L, RDW Std Deviation 50.7 H, RDW Coeff of Immanuel 14.6, Plt Count 249, MPV 11.0, Immature Gran % (Auto) 0.300, Neut % (Auto) 57.9, Lymph % (Auto) 32.0, [place] % (Auto) 7.6, Eos % (Auto) 1.8, Baso % (Auto) 0.4, Absolute Neuts (auto) 4.1, Absolute Lymphs (auto) 2.28, Nucleated RBC % 0 01/18/22 00:10: PT 17.0 H, INR 1.4 01/18/22 00:10: Sodium 140, Potassium 4.5, Chloride 107, Carbon Dioxide 28.0, Anion Gap 5, BUN 20 H, Creatinine 0.87, Estim Creat Clear Calc 64.97, Est GFR (MDRD) Af Amer 87, Est GFR (MDRD) Non-Af 72, BUN/Creatinine Ratio 23.0 H, Glucose 101, Calcium 8.8, Total Bilirubin 0.20, AST 57 H, ALT 23, Alkaline Phosphatase 115, Troponin I High Sens 4, Total Protein 7.4, Albumin 3.4, Globulin 4.0, Albumin/Globulin Ratio 0.8 L, Lipase 139 01/18/22 06:10: Iron 16 L, TIBC 391, Iron Saturation 4.1 L, Ferritin 7 L 01/18/22 06:10: WBC 8.8, RBC 2.36 L, Hgb 6.7 L, Hct 22.2 L, MCV 94.1, MCH 28.4, MCHC 30.2 L, RDW Std Deviation 49.1 H, RDW Coeff of Immanuel 14.6, Plt Count 216, MPV 10.5, Immature Gran % (Auto) 0.500, Neut % (Auto) 82.7 H, Lymph % (Auto) 11.6 L, [place] % (Auto) 3.8, Eos % (Auto) 0.9, Baso % (Auto) 0.5, Absolute Neuts (auto) 7.3, Absolute Lymphs (auto) 1.02, Nucleated RBC % 0 01/18/22 06:10: Sodium 139, Potassium 4.5, Chloride 107, Carbon Dioxide 27.0, Anion Gap 5, BUN 16, Creatinine 0.67, Estim Creat Clear Calc 84.37, Est GFR (MDRD) Af Amer 116, Est GFR (MDRD) Non-Af 96, BUN/Creatinine Ratio 23.8 H, Glucose 109 H, Calcium 8.3 L, Total Bilirubin 0.10 L, AST 51 H, ALT 17, Alkaline Phosphatase 112, Total Protein 6.9, Albumin 3.1 L, Globulin 3.8, Albumin/Globulin Ratio 0.8 L, Folate 12.30, TSH 2.48, Free T4 0.83 Radiography Diagnostic Testing: Radiology Impression Brain CT 01/17/22 23:51 IMPRESSION: undefined Rhythm Strip Rhythm Strip: Sinus Rhythm Rate: 57 Ectopy: None Physical Exam Narrative Physical exam General: Alert, Oriented x3, Cooperative HEENT: Pale conjunctiva. Mild tenderness over occipital region. No hematoma/bruise PERRLA, EOMI, Normocephalic Oral: No Gingival or Mucosal Lesions/ Ulcerations Neck: Supple, No JVD, Negative Carotid Bruits Lungs: Air entry diminished in bilateral lung bases. No crepitation/rhonchi Cardiovascular: Regular rate, Regular Rhythm, Normal S1, Normal S2, No murmurs Abdomen: Bowel Sounds Present, Soft, Non Tender, Non-Distended : No renal angle tenderness. No suprapubic tenderness. Extremities: No edema, Capillary Refill Less than 3 Seconds Skin: No rashes, No breakdown Musculoskeletal: No Tenderness to Palpation of Joints or Extremities. Bilateral degenerative arthritis/bony prominences of knee. ROM at hip and knee joints restricted. Neurological: Cranial nerves II-XII grossly intact, DTR 2+/4 and Symmetrical Psych/Mental Status: Flat affect. Assessment & Plan Assessment/Plan (1) Falls frequently: (2) Acute on chronic blood loss anemia: PLAN: Plan The patient is a 56 y/o F with multiple chronic comorbidities admitted for mechanical fall hitting her back of the head with suspected concussion. #1.? Recent Mechanical fall with trauma to the head with suspected concussion, debility due to arthritis/gait incoordination: Patient is being admitted in PCU. She said she might have syncope after fall about 3 days ago, does not remember exactly. CT head and C-spine does not show acute change. #2.? Chronic hypoxic respiratory failure with COPD/restrictive lung disease, OSAOHS on BiPAP: Patient on chronic 3 L of home oxygen continued. DuoNeb as needed. #3.? History DVT, PE: Patient has history of multiple DVT and bilateral PE in the past. She said her mother also had history of blood clotting/possible hypercoagulable disorder. Patient had severe anemia therefore Xarelto on hold. Try for Eliquis. #4. Acute severe on chronic normocytic anemia: Admission hemoglobin 7.2, from review of records has been trending down since 09/22/2021, 10 gram percent, 01/15/2022 7.3. Iron work-up shows severe iron versus anemia. Folate acid normal. B12 normal. TSH and free T4 normal. Patient had EGD and colonoscopy and outpatient capsule endoscopy by Dr. Millard. Did not find any focal cause of GI bleed yet but suspected small bowel bleed. Need push enteroscopy which is not available here. 1 unit of PRBC transfusion ordered. Repeat hemoglobin 7.2. IV iron ordered. Discussed with the GI Dr. Baez Patient also has history of F2/F3 liver fibrosis as per elastography done outpatient suggestive of advanced fibrosis with early changes of cirrhosis. AST x2. ALT normal. Last CT abdomen September 2021 reported unremarkable status postcholecystectomy. Abdominal ultrasound September 2021 reported heterogeneous echogenicity but no demonstrable mass lesion. #5.? Chronic diastolic CHF: continue patient home relative no spironolactone, Toprol, losartan, statin therapy, judicious hydration. #6.? Hypertension: Continue home regimen including spinal tone, metoprolol, statin with hold parameters as needed, PRN hydralazine. #7.? Hyperlipidemia: We will continue patient on statin therapy. #8.? Parkinson's disease: Complicates presentation, fall susceptible, primarily wheelchair-bound, encourage positional changes, continue Sinemet, therapies consulted as noted. #9.? Seizure disorder: continue patient home Keppra regimen. #10.? Anxiety and depression: continue patient home venlafaxine, clonazepam as well as mirtazapine regimen #11.? Reported history of hypothyroidism: From current list on a regimen, TSH and free T4 will be requested and medications clarified. #12.? Former tobacco use: Encourage continued tobacco cessation. #13.? Chronic pain syndrome on chronic narcotic therapy: Patient on notable narcotic regimen and also sedative regimen concurrently, likely contributes to acute presentation #1, given long-term usage and to avoid withdrawal will continue home percocet regimen. #14.? STEPHANIE: BiPAP nightly. #15.? DVT prophylaxis: SCDs, continue patient home Xarelto regimen. #16.? CODE status: DNR CCA no intubation Total time of the visit including total time spent in counseling or coordination of care, (more than 50% of the total time, spent in obtaining medical information from nurses and other ancillary care providers,explaining to the patient about labs, imaging, diagnosis and management), review of previous labs and imaging, abdominal CT and abdominal ultrasound, discussion with the GI apartment leasing consultant, is 40 minutes. Charges/Coding Visit Charges OBSV E&M: 99627 Subsequent observation care L3
--- NOTE | 2022-01-18 07:56 | PCM.PN.HOSP ---
Objective Data Objective Data Vital Signs: Vital Signs Temp Pulse Resp BP Pulse Ox 98.2 F 57 L 16 127/84 H 96 01/18/22 04:00 01/18/22 07:21 01/18/22 07:21 01/18/22 04:00 01/18/22 07:21 Oxygen Flow Rate (L/min) 2 Oxygen Delivery Method Nasal Cannula Weight: 257 lb 11.526 oz Body Mass Index (BMI) 42.8 Intake & Output: Intake and Output for Last 24 Hours 01/16/22 01/17/22 01/18/22 23:59 23:59 23:59 Intake Total 1000 / 1000 Balance 1000 / 1000 Lab / Micro Data Result Diagrams: 01/18/22 06:10 01/18/22 06:10 Labs: Laboratory Results - last 24 hr 01/18/22 00:10: WBC 7.1, RBC 2.61 L, Hgb 7.2 L, Hct 24.5 L, MCV 93.9, MCH 27.6, MCHC 29.4 L, RDW Std Deviation 50.7 H, RDW Coeff of Immanuel 14.6, Plt Count 249, MPV 11.0, Immature Gran % (Auto) 0.300, Neut % (Auto) 57.9, Lymph % (Auto) 32.0, Meriwether % (Auto) 7.6, Eos % (Auto) 1.8, Baso % (Auto) 0.4, Absolute Neuts (auto) 4.1, Absolute Lymphs (auto) 2.28, Nucleated RBC % 0 01/18/22 00:10: PT 17.0 H, INR 1.4 01/18/22 00:10: Sodium 140, Potassium 4.5, Chloride 107, Carbon Dioxide 28.0, Anion Gap 5, BUN 20 H, Creatinine 0.87, Estim Creat Clear Calc 64.97, Est GFR (MDRD) Af Amer 87, Est GFR (MDRD) Non-Af 72, BUN/Creatinine Ratio 23.0 H, Glucose 101, Calcium 8.8, Total Bilirubin 0.20, AST 57 H, ALT 23, Alkaline Phosphatase 115, Troponin I High Sens 4, Total Protein 7.4, Albumin 3.4, Globulin 4.0, Albumin/Globulin Ratio 0.8 L, Lipase 139 01/18/22 06:10: Iron 16 L, TIBC 391, Iron Saturation 4.1 L, Ferritin 7 L 01/18/22 06:10: WBC 8.8, RBC 2.36 L, Hgb 6.7 L, Hct 22.2 L, MCV 94.1, MCH 28.4, MCHC 30.2 L, RDW Std Deviation 49.1 H, RDW Coeff of Immanuel 14.6, Plt Count 216, MPV 10.5, Immature Gran % (Auto) 0.500, Neut % (Auto) 82.7 H, Lymph % (Auto) 11.6 L, Meriwether % (Auto) 3.8, Eos % (Auto) 0.9, Baso % (Auto) 0.5, Absolute Neuts (auto) 7.3, Absolute Lymphs (auto) 1.02, Nucleated RBC % 0 01/18/22 06:10: Sodium 139, Potassium 4.5, Chloride 107, Carbon Dioxide 27.0, Anion Gap 5, BUN 16, Creatinine 0.67, Estim Creat Clear Calc 84.37, Est GFR (MDRD) Af Amer 116, Est GFR (MDRD) Non-Af 96, BUN/Creatinine Ratio 23.8 H, Glucose 109 H, Calcium 8.3 L, Total Bilirubin 0.10 L, AST 51 H, ALT 17, Alkaline Phosphatase 112, Total Protein 6.9, Albumin 3.1 L, Globulin 3.8, Albumin/Globulin Ratio 0.8 L, Folate 12.30, TSH 2.48, Free T4 0.83 Radiography Diagnostic Testing: Radiology Impression Brain CT 01/17/22 23:51 IMPRESSION: undefined Rhythm Strip Rhythm Strip: Sinus Rhythm Rate: 57 Ectopy: None Assessment & Plan Assessment/Plan (1) Concussion: (2) FTT (failure to thrive) in adult: PLAN: Plan The patient is a 56 y/o F with multiple comorbidities was admitted with headache after mechanical fall 3 days ago. Patient has nausea and vomiting and came to ED at that time and CT head was done with no fracture ED therefore sent home. She returned to ED with worsening of headache mainly located in posterior occipital region where she hit her head with pressure behind her eyes. No photophobia or phonophobia. She is found severely anemic. #1. Recent Mechanical fall with trauma to the head with suspected concussion w/ Adult Failure to Thrive: Given difficulty caring for self, recent fall with CT head unremarkable at that time and repeat similar as well as CT cervical spine appropriate with no acute injury suspect given complaints likely associated concussion, will admit to medical surgical floor, maintain on fall precautions, as needed antiemetics, suspect mild abdominal upset secondary to nausea and emesis bouts, encourage strongly brain rest with no TV/phone/reading, consult PT/OT/case management for discharge planning is from discussion likely will need assisted living versus skilled placement. #2. Chronic hypoxic respiratory failure with COPD/restrictive lung disease: We will continue patient chronic home 3L NC supplementation oxygen therapy, hold home inhalers and transition in interim to ATC DuoNeb therapy, as needed albuterol, encourage head of bed and I-S #3. History DVT, PE: Patient with history of DVT as well as bilateral PE, we will continue patient home Xarelto regimen. Patient does report a history of occasional epistaxis, continue to monitor. #4. Chronic normocytic anemia: Patient baseline noted to be around 10 in September 2021 dropped to 7.3 on 01/12. Acute anemia with history of chronic normocytic normochromic anemia. Admit hemoglobin 7.2 dropped to 6.7. Anemia work-up shows severe iron deficiency anemia. Stool for occult blood ordered. 1 L PRBC ordered. B12 and folate pending. TSH normal #5. Chronic diastolic CHF: We will continue patient home relative no spironolactone, Toprol, losartan, statin therapy, judicious hydration. #6. Hypertension: Continue home regimen including spinal tone, metoprolol, statin with hold parameters as needed, PRN hydralazine. #7. Hyperlipidemia: We will continue patient on statin therapy. #8. Parkinson's disease: Complicates presentation, fall susceptible, primarily wheelchair-bound, encourage positional changes, continue Sinemet, therapies consulted as noted. #9. Seizure disorder: We will continue patient home Keppra regimen. #10. Anxiety and depression: We will continue patient home venlafaxine, clonazepam as well as mirtazapine regimen #11. Reported history of hypothyroidism: From current list on a regimen, TSH and free T4 will be requested and medications clarified. #12. Former tobacco use: Encourage continued tobacco cessation. #13. Chronic pain syndrome on chronic narcotic therapy: Patient on notable narcotic regimen and also sedative regimen concurrently, likely contributes to acute presentation #1, given long-term usage and to avoid withdrawal will continue home percocet regimen. #14. STEPHANIE: BiPAP nightly. #15. DVT prophylaxis: SCDs, continue patient home Xarelto regimen. #16. CODE status: Patient does not have healthcare power of corporate associate attorney nor living will in place but notes that her sister would certainly be her primary decision-maker if the need should arise. Discussed CODE status at length including difference between FULL code, DNR-CCA and DNR-CC status. Following discussions about the differences in these status, requested DNR-CCA, no intubation status given her extensive medical history. Advanced Care Planning Face to Face Time: 16 minutes.
[2022-01-18 08:27] LABS: Vitamin B12 343 pg/mL (211-911)
[2022-01-18] MEDS: Spironolactone 50 MG Tablet PO (09:05)
[2022-01-18] MEDS: levETIRAcetam 500 MG Tablet PO ×2 (09:05→21:37)
[2022-01-18] MEDS: Metoprolol(XL)Succ 100 MG Tablet PO (09:05)
[2022-01-18] MEDS: Venlafaxine XR 37.5 MG Capsule 112.5 MG PO (09:05)
[2022-01-18] MEDS: clonazePAM 1 MG Tablet PO ×2 (09:09→21:36)
--- NOTE | 2022-01-18 09:37 | CASEMGMT ---
SW spoke with patient. Introduced self and role at [facility]. SW asked patient about her discharge plan and whether or not she feels she would need to go [place] a [place]. Patient said she doesn't think she needs a [place]. Patient wants assisted living. SW told patient that SW is likely not going to be able to get her to [place] from the hospital. SW noted when patient was at [facility] in Aug she was applying to get into [facility]. SW asked patient what happened with that. Patient said [facility] would not accept her as she was too much of a fall risk. SW asked patient if she has a patient case coordinator she is working with. Patient said she thinks so, but does not know any names. SW did provided a list of SNF providers including quality and resource use data and consistent with the patient?s preferred geographic region, medical needs, and insurance network. SW told patient SW will try and find out more about a patient case coordinator or her assisted living waiver. WILNER called [facility] and spoke with Alexander Julio on the coverage line. According to his records patient is in the process of getting a Medicaid Assisted Living Waiver. Patient does not currently have a patient case coordinator. He also had a note in the system from the regarding patient touring [facility]. Kathryn Corral HEAD OF LOSS PREVENTION JAE
--- NOTE | 2022-01-18 10:28 | CASEMGMT ---
WILNER spoke with patient and asked who she is working with on getting the Medicaid Waiver. Patient said [facility] [employer] [facility] and her insurance. She did not have any names. She mentioned [facility] and that they accepted her. She also said that she was supposed to tour [facility], but did not go as she was not feeling well. WILNER asked patient if it was okay for SW to call [facility] and her sister in law. Patient was okay with this. WILNER called [facility] and spoke with Saud. Sadu said patient was supposed to tour on the , but she did not come as she was not feeling well. Saud said they have to wait until her waiver is in place and he would not have any open rooms until mid January. WILNER then called patient's sister in law, Deanne and left her a voice mail requesting a return call. Kathryn ROWE
--- NOTE | 2022-01-18 13:42 | CASEMGMT ---
SW spoke with patient after she had therapy. Per therapy patient did not do well and she continues to fall at home. Patient refuses to go to a SNF as she has a dog and there is no one to take care of her dog. 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 SW asked patient if she will have a ride home and she said she will have a ride. Kathryn ROWE
[2022-01-18 16:58] LABS: Hematocrit 24.4 % (37-47); Hemoglobin 7.2 g/dL (12.0-15.0)
--- NOTE | 2022-01-18 20:41 | CPS ---
OVERHEAD DOOR TECHNICIAN spoke with patient regarding BIPAP. Patient is non-compliant at home and refuses hospital BIPAP unit.
[2022-01-18] MEDS: Atorvastatin Calcium 80 MG Tablet PO (21:37)
[2022-01-18] MEDS: Mirtazapine 15 MG Tablet 7.5 MG PO (21:37)
[2022-01-19] VITALS (7 sets, daily range): BP systolic 95–120; BP diastolic 53–77; PULSE 54–72; RESP 16–18; TEMP 36.4–36.6; O2SAT 92–99
[2022-01-19 05:51] LABS: Absolute Lymphocyte Count 2.22 X10^3/uL (0.83-4.51); Absolute Neutrophil Count 2.8 X10^3/uL (2.0-7.7); Basophil# 0.03 X10^3/uL; Basophil% 0.5 % (0-1); Eosinophil# 0.08 X10^3/uL; Eosinophils% 1.4 % (0-5); Hematocrit 23.7 % (37-47); Hemoglobin 7.2 g/dL (12.0-15.0); Lymphocyte # 2.22 X10^3/ul (0.83-4.51); Lymphocyte % 39.8 % (19-41); Mean Corp Hgb Conc 30.4 g/dL (32-36); Mean Corpuscular Hgb 28.1 pg (27.0-32.0); Mean Corpuscular Volume 92.6 fL (81-99); Mean Platelet Vol. 10.2 fl (6.2-12.0); Monocyte# 0.45 X10^3/uL; Monocyte% 8.1 % (0-10); NRBC Flagged by Analyzer 0 % (0-5); Neutrophil # 2.78 X10^3/uL (2.7-7.7); Neutrophil % 49.8 % (47-70); Platelet Count 190 K/mm3 (150-450); RBC Distribution Width CV 14.7 % (11.6-14.6); Red Blood Count 2.56 M/mm3 (4.2-5.4); White Blood Count 5.6 K/mm3 (4.4-11.0)
[2022-01-19] MEDS: CARBIDOPA/LEVODOPA CR 50/200 Tablet PO ×2 (06:20→13:10)
[2022-01-19 06:30] LABS: Anion Gap 5 (5-15); BUN 15 mg/dL (7-18); BUN/Creat Ratio 21.1 RATIO (10-20); Calcium,Total 8.6 mg/dL (8.5-10.1); Chloride 106 mmol/L (98-107); Creatinine, Serum 0.71 mg/dL (0.55-1.02); EST Glomerular Filtration Rate 90 mL/min (>60); Est Glom Filt Rate - Afr Amer 109 mL/min (>60); Estimated Creatinine Clearance 79.61 ml/min; Glucose 97 mg/dL (74-106); Potassium 4.1 mmol/L (3.5-5.1); Sodium Level 140 mmol/L (136-145)
[2022-01-19] MEDS: Ipratropium/Albuterol Sulfate 3 ML AMPUL.NEB INHALATION ×2 (07:40→13:26)
[2022-01-19] MEDS: Spironolactone 50 MG Tablet PO (10:29)
[2022-01-19] MEDS: Venlafaxine XR 37.5 MG Capsule 112.5 MG PO (10:29)
[2022-01-19] MEDS: Pantoprazole Sodium 20 MG Tablet PO (10:29)
[2022-01-19] MEDS: Losartan Potassium 100 MG Tablet PO (10:29)
[2022-01-19] MEDS: oxyCODONE 5 MG Tablet PO (10:29)
[2022-01-19] MEDS: levETIRAcetam 500 MG Tablet PO (10:29)
[2022-01-19] MEDS: clonazePAM 1 MG Tablet PO (10:29)
[2022-01-19] MEDS: Metoprolol(XL)Succ 100 MG Tablet PO (10:31)
--- NOTE | 2022-01-19 11:28 | DCINST_ITS ---
Discharge Instructions Diet Discharge Diet: Low fat / Low cholesterol and 2000 Calorie Control Diet Activity Discharge Activity: - (brain rest, avoid TV/phone/reading for 1 week until repeat PCP eval) Dressing / Incision Call your doctor if you observe: Dizziness, Fainting spells and - (recurrent fall) Follow Up Care Test Results: Test results from this visit will be discussed in further detail at your follow- up appointment, if applicable. Discharge Plan Admission Admit Date/Time: 01/18/22 02:38 Primary Reason for Your Visit: Fall with head injury Attending Provider: Nick Romano Primary Care Provider: Alvarez Montanez Consulting Providers: Aleksandra Hurley Instructions Additional Instructions / Restrictions: You will need repeat CBC in 3-5 days by PCP to re-check hemoglobin. Discharge Orders/Prescriptions Prescriptions: New pantoprazole 20 mg Tablet,Delayed Release (Dr/Ec) 20 mg PO BID 30 Days Qty: 60 0RF ferrous sulfate 325 mg (65 mg iron) tablet,delayed release (DR/EC) 325 mg PO TID Qty: 90 0RF Continued albuterol sulfate [ProAir HFA] 90 mcg/actuation HFA aerosol inhaler 2 puff INHALATION Q4H PRN (Reason: shortness of breath or wheezing) venlafaxine 75 mg capsule,extended release 24hr 75 mg PO DAILY Ensure Compact Liquid 118 ml PO DAILY Label Comments: 2 ENSURE'S DAILY carbidopa-levodopa 50-200 mg tablet extended release See Rx Instructions .ROUTE .COMPLEX Qty: 90 3RF Rx Instructions: Take 1 tablet PO daily for one week then 1 BID for one week then 1 TID thereafter. levetiracetam [Keppra] 500 mg tablet 500 mg PO BID Qty: 30 3RF Dulera 100-5 mcg/actuation Hfa Aerosol Inhaler 2 puff INHALATION Q12H PRN (Reason: sob) venlafaxine 37.5 mg capsule,extended release 24hr 37.5 mg PO DAILY Label Comments: TAKE 1 CAPSULE BY MOUTH ONCE DAILY WITH 75MG CAPSULE . APPOINTMENT REQUIRED FOR FUTURE REFILLS Rx Instructions: Take daily with 75 mg dose clonazepam 1 mg tablet 1 mg PO BID atorvastatin 80 mg tablet 80 mg PO QHS Label Comments: TAKE 1 TABLET BY MOUTH ONCE DAILY mirtazapine 7.5 mg tablet 7.5 mg PO QHS Label Comments: TAKE 1 TABLET BY MOUTH AT BEDTIME metoprolol succinate 100 mg tablet extended release 24 hr 100 mg PO DAILY Qty: 0 0RF Label Comments: TAKE (1) TABLET BY MOUTH ONCE DAILY Rx Instructions: Hold for heart less than 60 or systolic blood pressure less than 100 mmHg. furosemide [Lasix] 20 mg tablet 20 mg PO DAILY PRN (Reason: leg swelling) Qty: 30 0RF Rx Instructions: Do not take if systolic blood pressure is less than 110 mmHg spironolactone 50 mg tablet 50 mg PO DAILY Qty: 0 0RF Label Comments: TAKE 1 TABLET BY MOUTH ONCE DAILY. Rx Instructions: Hold if serum potassium more than 4.5 tizanidine 4 mg tablet 4 mg PO Q8H PRN (Reason: muscle spasticity) Qty: 15 0RF losartan 25 mg tablet 100 mg PO DAILY Rx Instructions: Hold for SBP less than 110 mmHg Xarelto 20 mg Tablet 20 mg PO DAILY Rx Instructions: must administer with evening meal oxycodone-acetaminophen [Percocet] 5-325 mg tablet 1 tab PO Q6H PRN (Reason: pain) 3 Days Qty: 12 0RF Referrals / Follow Up: Chapincito Castro MD [STAFF PHYSICIAN] - See Referral Note (As scheduled 02/20/22) Alvarez Montanez MD [Primary Care Provider] - See Referral Note (3-5 days) Carline Whatley NP, FEATHER CUTTING MACHINE FEEDER-C [Nurse Practitioner] - See Referral Note (3-5 days) Disposition Disposition (needs filled in before D/C Order can be placed): Home, Self Care
--- NOTE | 2022-01-19 12:00 | PCM.DC.SUM ---
Documented by User: Alba Blanc NP, DIRECTOR FINANCIAL PLANNING-C 01/19/22 12:32 Providers Date of Admission: 01/18/22 Date of Discharge: 01/19/22 Primary Care Physician: Dr. Alvarez Montanez MD Reason For Visit: FTT ADULT, CONCUSSION SUSPECTED, RECENT FALLS Diagnosis Discharge Diagnosis (1) Falls frequently: Status: Acute Code(s): R29.6 - Repeated falls (2) Acute on chronic blood loss anemia: Status: Chronic Code(s): D62 - Acute posthemorrhagic anemia Medications at Discharge Home Medications albuterol sulfate 90 mcg/actuation aerosol inhaler (ProAir HFA) 2 puff inhalation Q4H PRN shortness of breath or wheezing 08/01/17 venlafaxine 75 mg capsule,extended release 24 hr 75 mg PO DAILY mental health 03/02/21 mometasone-formoterol HFA 100 mcg-5 mcg/actuation aerosol inhaler (Dulera) 2 puff inhalation Q12H PRN sob 03/15/21 venlafaxine 37.5 mg capsule,extended release 24 hr 37.5 mg PO DAILY Depression 04/25/21 clonazepam 1 mg tablet 1 mg PO BID anxiety 05/09/21 food supplemt, lactose-reduced (Ensure Compact) 118 ml PO DAILY supplement 05/24/21 atorvastatin 80 mg tablet 80 mg PO QHS cholesterol 08/26/21 mirtazapine 7.5 mg tablet 7.5 mg PO QHS sleep 08/26/21 furosemide 20 mg tablet (Lasix) 20 mg PO DAILY PRN leg swelling #30 tabs 08/31/21 metoprolol succinate 100 mg tablet,extended release 24 hr 100 mg PO DAILY blood pressure #0 tabs 08/31/21 spironolactone 50 mg tablet 50 mg PO DAILY diuretic #0 tabs 08/31/21 tizanidine 4 mg tablet 4 mg PO Q8H PRN muscle spasticity #15 tabs 09/22/21 losartan 25 mg tablet 100 mg PO DAILY blood pressure 11/03/21 carbidopa ER 50 mg-levodopa 200 mg tablet,extended release See Rx Instructions .Route .COMPLEX #90 tabs 12/12/21 levetiracetam 500 mg tablet (Keppra) 500 mg PO BID seizures #30 tabs 12/12/21 oxycodone-acetaminophen 5 mg-325 mg tablet (Percocet) 1 tab PO Q6H PRN pain 3 days #12 tabs 01/15/22 apixaban 5 mg tablet (Eliquis) 5 mg PO BID #60 tabs 01/19/22 ascorbic acid (vitamin C) 500 mg tablet 500 mg PO BID #60 tabs 01/19/22 ferrous sulfate 325 mg (65 mg iron) tablet,delayed release 325 mg PO TID #90 tabs 01/19/22 pantoprazole 20 mg tablet,delayed release 20 mg PO BID 30 days #60 tabs 01/19/22 Hospital Course Operations None Procedures None Summary of Care Provided Hospital Course: Patient is a 56 year old female admitted 01/18/22 due to recurrent fall. 1. Suspected concussion related to recent mechanical fall with head injury, adult failure to thrive with recurrent falls-recent imaging 01/15/[address], cervical spine CT, shoulder x-ray and hip/pelvis x-ray negative for acute process. Brain CT 01/15/2022 did demonstrate midline posterior parietal scalp contusion/hematoma without underlying fracture. Repeat brain CT 01/17/2022 unremarkable. Recommended concussion protocol at discharge with brain rest including no TV/phone/reading. Strongly recommended SNF with ongoing PT/OT as patient lives alone and has had recurrent falls. Patient adamantly declines. Requesting discharge home. States she will work with her primary care provider on assisted living arrangements. 2. Acute on chronic normocytic anemia- S/P 1 unit PRBC. IV iron X2 with oral iron supplement at discharge. PPI added at discharge as well. Recommend repeat CBC in 3 days and outpatient follow-up with GI. She has a history of iron deficiency anemia and GI bleed. History of nonbleeding AVM found with endoscopy. She also underwent capsule endoscopy which revealed nonspecific enteritis of the small bowel. Patient will likely need repeat outpatient endoscopy. Follow-up with GI within 1 week. 3. 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 4. Chronic diastolic CHF-on spironolactone, losartan. 5. Hypertension-stable, continue current regimen. 6. Hyperlipidemia- continue statin. 7. Parkinson's disease-primarily wheelchair-bound. Continue Sinemet. Declined SNF as noted above. 8. Seizure disorder-on Keppra. 9. Anxiety/depression-on venlafaxine, clonazepam, mirtazapine. 10. Hypothyroidism-not on regimen. TSH/free T4 normal. 11. Chronic pain syndrome-continue home as needed regimen. 12. STEPHANIE-continue BiPAP nightly. Patient seen and examined prior to discharge. Physical assessment as noted below. Patient is stable for discharge with follow up recommendations as noted above. This patient was seen by WILLIAM Mcallister under the supervision of Dr. Romano. Time spent examining patient, reviewing data and subsequent management of care: 24 minutes Physical Exam Const alert, oriented x3 and no apparent distress Orientation / Consciousness: awake, oriented to person, oriented to place and oriented to time HEENT normocephalic and moist oral mucous membranes Eyes PERRL, EOMs intact bilaterally and conjunctivae normal Neck no lymphadenopathy Resp normal respiratory effort and clear to auscultation bilaterally Cardio regular rate, regular rhythm and no murmurs Peripheral Pulses: pulses 2+ throughout GI normal to inspection, nondistended, normoactive bowel sounds, non-tender and non-distended Extremity normal to inspection Skin no rashes or lesions noted Lesions: no lesions Rashes: no rashes Trauma: no lacerations or abrasions Neuro CN's II-XII intact bilaterally, no focal motor deficits, no sensory deficits noted and deep tendon reflexes 2+ bilaterally Psych mental status grossly normal and affect normal Weight / BMI Weight Weight: 261 lb 14.546 oz Body Mass Index (BMI) 42.8 ABG / Lab / Microbiology Data Result Diagrams: 01/19/22 05:42 01/19/22 05:42 Laboratory: Laboratory Results - last 24 hr 01/18/22 09:00: Crossmatch See Detail 01/18/22 16:49: Hgb 7.2 L, Hct 24.4 L 01/19/22 05:42: WBC 5.6, RBC 2.56 L, Hgb 7.2 L, Hct 23.7 L, MCV 92.6, MCH 28.1, MCHC 30.4 L, RDW Std Deviation 50.0 H, RDW Coeff of Immanuel 14.7 H, Plt Count 190, MPV 10.2, Immature Gran % (Auto) 0.400, Neut % (Auto) 49.8, Lymph % (Auto) 39.8, Burnet % (Auto) 8.1, Eos % (Auto) 1.4, Baso % (Auto) 0.5, Absolute Neuts (auto) 2.8, Absolute Lymphs (auto) 2.22, Nucleated RBC % 0 01/19/22 05:42: Sodium 140, Potassium 4.1, Chloride 106, Carbon Dioxide 29.0, Anion Gap 5, BUN 15, Creatinine 0.71, Estim Creat Clear Calc 79.61, Est GFR (MDRD) Af Amer 109, Est GFR (MDRD) Non-Af 90, BUN/Creatinine Ratio 21.1 H, Glucose 97, Calcium 8.6 D/C Instructions Discharge Diet: Low fat / Low cholesterol and 2000 Calorie Control Diet Call your doctor if you observe: Dizziness, Fainting spells and - (recurrent fall) Meaningful Use Info Meaningful Use Diagnoses (Choose all that apply): None applicable Discharge Plan Admission Admit Date/Time: 01/18/22 02:38 Primary Reason for Your Visit: Fall with head injury Attending Provider: Nick Romano Primary Care Provider: Alvarez Montanez Consulting Providers: Aleksandra Hurley Instructions Additional Instructions / Restrictions: You will need repeat CBC in 3-5 days by PCP to re-check hemoglobin. Discharge Orders/Prescriptions Prescriptions: New pantoprazole 20 mg Tablet,Delayed Release (Dr/Ec) 20 mg PO BID 30 Days Qty: 60 0RF ferrous sulfate 325 mg (65 mg iron) tablet,delayed release (DR/EC) 325 mg PO TID Qty: 90 0RF Eliquis 5 mg tablet 5 mg PO BID Qty: 60 0RF ascorbic acid (vitamin C) 500 mg tablet 500 mg PO BID Qty: 60 2RF Continued albuterol sulfate [ProAir HFA] 90 mcg/actuation HFA aerosol inhaler 2 puff INHALATION Q4H PRN (Reason: shortness of breath or wheezing) venlafaxine 75 mg capsule,extended release 24hr 75 mg PO DAILY Ensure Compact Liquid 118 ml PO DAILY Label Comments: 2 ENSURE'S DAILY carbidopa-levodopa 50-200 mg tablet extended release See Rx Instructions .ROUTE .COMPLEX Qty: 90 3RF Rx Instructions: Take 1 tablet PO daily for one week then 1 BID for one week then 1 TID thereafter. levetiracetam [Keppra] 500 mg tablet 500 mg PO BID Qty: 30 3RF Dulera 100-5 mcg/actuation Hfa Aerosol Inhaler 2 puff INHALATION Q12H PRN (Reason: sob) venlafaxine 37.5 mg capsule,extended release 24hr 37.5 mg PO DAILY Label Comments: TAKE 1 CAPSULE BY MOUTH ONCE DAILY WITH 75MG CAPSULE . APPOINTMENT REQUIRED FOR FUTURE REFILLS Rx Instructions: Take daily with 75 mg dose clonazepam 1 mg tablet 1 mg PO BID atorvastatin 80 mg tablet 80 mg PO QHS Label Comments: TAKE 1 TABLET BY MOUTH ONCE DAILY mirtazapine 7.5 mg tablet 7.5 mg PO QHS Label Comments: TAKE 1 TABLET BY MOUTH AT BEDTIME metoprolol succinate 100 mg tablet extended release 24 hr 100 mg PO DAILY Qty: 0 0RF Label Comments: TAKE (1) TABLET BY MOUTH ONCE DAILY Rx Instructions: Hold for heart less than 60 or systolic blood pressure less than 100 mmHg. furosemide [Lasix] 20 mg tablet 20 mg PO DAILY PRN (Reason: leg swelling) Qty: 30 0RF Rx Instructions: Do not take if systolic blood pressure is less than 110 mmHg spironolactone 50 mg tablet 50 mg PO DAILY Qty: 0 0RF Label Comments: TAKE 1 TABLET BY MOUTH ONCE DAILY. Rx Instructions: Hold if serum potassium more than 4.5 tizanidine 4 mg tablet 4 mg PO Q8H PRN (Reason: muscle spasticity) Qty: 15 0RF losartan 25 mg tablet 100 mg PO DAILY Rx Instructions: Hold for SBP less than 110 mmHg oxycodone-acetaminophen [Percocet] 5-325 mg tablet 1 tab PO Q6H PRN (Reason: pain) 3 Days Qty: 12 0RF Discontinued Xarelto 20 mg Tablet 20 mg PO DAILY Rx Instructions: must administer with evening meal Referrals / Follow Up: Chapincito Castro MD [STAFF PHYSICIAN] - See Referral Note (As scheduled 02/20/22) Alvarez Montanez MD [Primary Care Provider] - See Referral Note (3-5 days) Carline Whatley NP, DIRECTOR FINANCIAL PLANNING-C [Nurse Practitioner] - See Referral Note (3-5 days) Disposition Disposition (needs filled in before D/C Order can be placed): Home, Self Care Documented by User: Dr. Nick Romano MD 01/19/22 17:52 Providers Date of Admission: 01/18/22 Reason For Visit: FTT ADULT, CONCUSSION SUSPECTED, RECENT FALLS Diagnosis Discharge Diagnosis (1) Falls frequently: Status: Acute Code(s): R29.6 - Repeated falls (2) Acute on chronic blood loss anemia: Status: Chronic Code(s): D62 - Acute posthemorrhagic anemia Medications at Discharge Home Medications albuterol sulfate 90 mcg/actuation aerosol inhaler (ProAir HFA) 2 puff inhalation Q4H PRN shortness of breath or wheezing 08/01/17 venlafaxine 75 mg capsule,extended release 24 hr 75 mg PO DAILY mental health 03/02/21 mometasone-formoterol HFA 100 mcg-5 mcg/actuation aerosol inhaler (Dulera) 2 puff inhalation Q12H PRN sob 03/15/21 venlafaxine 37.5 mg capsule,extended release 24 hr 37.5 mg PO DAILY Depression 04/25/21 clonazepam 1 mg tablet 1 mg PO BID anxiety 05/09/21 food supplemt, lactose-reduced (Ensure Compact) 118 ml PO DAILY supplement 05/24/21 atorvastatin 80 mg tablet 80 mg PO QHS cholesterol 08/26/21 mirtazapine 7.5 mg tablet 7.5 mg PO QHS sleep 08/26/21 furosemide 20 mg tablet (Lasix) 20 mg PO DAILY PRN leg swelling #30 tabs 08/31/21 metoprolol succinate 100 mg tablet,extended release 24 hr 100 mg PO DAILY blood pressure #0 tabs 08/31/21 spironolactone 50 mg tablet 50 mg PO DAILY diuretic #0 tabs 08/31/21 tizanidine 4 mg tablet 4 mg PO Q8H PRN muscle spasticity #15 tabs 09/22/21 losartan 25 mg tablet 100 mg PO DAILY blood pressure 11/03/21 carbidopa ER 50 mg-levodopa 200 mg tablet,extended release See Rx Instructions .Route .COMPLEX #90 tabs 12/12/21 levetiracetam 500 mg tablet (Keppra) 500 mg PO BID seizures #30 tabs 12/12/21 oxycodone-acetaminophen 5 mg-325 mg tablet (Percocet) 1 tab PO Q6H PRN pain 3 days #12 tabs 01/15/22 apixaban 5 mg tablet (Eliquis) 5 mg PO BID #60 tabs 01/19/22 ascorbic acid (vitamin C) 500 mg tablet 500 mg PO BID #60 tabs 01/19/22 ferrous sulfate 325 mg (65 mg iron) tablet,delayed release 325 mg PO TID #90 tabs 01/19/22 pantoprazole 20 mg tablet,delayed release 20 mg PO BID 30 days #60 tabs 01/19/22 Hospital Course Summary of Care Provided Hospital Course: Patient is a 56 year old female admitted 01/18/22 due to recurrent fall. 1. Suspected concussion related to recent mechanical fall with head injury, adult failure to thrive with recurrent falls-recent imaging 01/15/[address], cervical spine CT, shoulder x-ray and hip/pelvis x-ray negative for acute process. Brain CT 01/15/2022 did demonstrate midline posterior parietal scalp contusion/hematoma without underlying fracture. Repeat brain CT 01/17/2022 unremarkable. Recommended concussion protocol at discharge with brain rest including no TV/phone/reading. Strongly recommended SNF with ongoing PT/OT as patient lives alone and has had recurrent falls. Patient adamantly declines. Requesting discharge home. States she will work with her primary care provider on assisted living arrangements. 2. Acute on chronic normocytic anemia- S/P 1 unit PRBC. IV iron X2 with oral iron supplement at discharge. PPI added at discharge as well. Recommend repeat CBC in 3 days and outpatient follow-up with GI. She has a history of iron deficiency anemia and GI bleed. History of nonbleeding AVM found with endoscopy. She also underwent capsule endoscopy which revealed nonspecific enteritis of the small bowel. Patient will likely need repeat outpatient endoscopy. Follow-up with GI within 1 week. 3. 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 4. Chronic diastolic CHF-on spironolactone, losartan. 5. Hypertension-stable, continue current regimen. 6. Hyperlipidemia- continue statin. 7. Parkinson's disease-primarily wheelchair-bound. Continue Sinemet. Declined SNF as noted above. 8. Seizure disorder-on Keppra. 9. Anxiety/depression-on venlafaxine, clonazepam, mirtazapine. 10. Hypothyroidism-not on regimen. TSH/free T4 normal. 11. Chronic pain syndrome-continue home as needed regimen. 12. STEPHANIE-continue BiPAP nightly. Patient seen and examined prior to discharge. Physical assessment as noted below. Patient is stable for discharge with follow up recommendations as noted above. This patient was seen by WILLIAM Mcallister under the supervision of Dr. Romano. Time spent examining patient, reviewing data and subsequent management of care: 24 minutes This patient was seen in conjunction with DIRECTOR FINANCIAL PLANNINGAlba. I have independently interviewed and examined the patient and reviewed pertinent history, examination findings, laboratory and plan of management. I have reviewed the note and agree with the documented findings with the few additional points. In brief, patient is 56 y/o F with multiple chronic comorbidities admitted for mechanical fall hitting her back of the head with suspected concussion. #1.? Recent Mechanical fall with trauma to the head with suspected concussion, debility due to arthritis/gait incoordination: Patient is being admitted in PCU.? She said she might have syncope after fall about 3 days ago, does not remember exactly.? CT head and C-spine does not show acute change. Tenderness has resolved. #2.? Chronic hypoxic respiratory failure with COPD/restrictive lung disease, OSAOHS on BiPAP: Patient on chronic 3 L of home oxygen continued.? DuoNeb as needed. #3.? History DVT, PE: Patient has history of multiple DVT and bilateral PE in the past.? She said her mother also had history of blood clotting/possible hypercoagulable disorder.? Patient had severe anemia therefore Xarelto on hold.? Try for Eliquis. #4.? Acute severe on chronic normocytic anemia: Admission hemoglobin 7.2, from review of records has been trending down since 09/22/2021, 10 gram percent,? 01/15/2022 7.3.? Iron work-up shows severe iron deficiency anemia.? Folate acid normal.? B12 normal.? TSH and free T4 normal.? Patient had EGD and colonoscopy and outpatient capsule endoscopy by Dr. Millard.? Did not find any focal cause of GI bleed yet but suspected small bowel bleed.? Need push enteroscopy which is not available here.? ?Discussed with the GI Dr. Millard Patient also has history of F2/F3 liver fibrosis as per elastography done outpatient suggestive of advanced fibrosis with early changes of cirrhosis.? AST x2.? ALT normal.? Last CT abdomen September 2021 reported unremarkable status postcholecystectomy.? Abdominal ultrasound September 2021 reported heterogeneous echogenicity but no demonstrable mass lesion.? During hospital course, patient had 1 unit of PRBC transfusion and 2 IV iron infusion. Repeat hemoglobin 7.2. Prescription given for ferrous sulfate and vitamin C. Patient has multiple other comorbidities including chronic diastolic/HFpEF, hypertension, dyslipidemia, Parkinson's disease, hypertension, dyslipidemia seizure disorder, anxiety and depression, degenerative joint arthritis and hypothyroidism. Patient also has chronic pain syndrome and chronic opioids. Obstructive sleep apnea/OHS on BiPAP. History of recurrent DVT and PE: Xarelto changed to Eliquis Discharge medication reconciliation done. Discharge follow-up instructions completed. Discharge process discussed with the patient and all questions were answered to patient's satisfaction. Total time spent, exact 35 minutes on discharge meds reconciliation, examination, coordination of care with nurses and ancillary staff, review of imaging and blood test and discussion with the patient on follow-up instructions. I have discussed my assessment with DIRECTOR FINANCIAL PLANNINGAlba and orders have been reviewed. Physical Exam Narrative Seen and examined on the day of discharge. Patient headache is much improved. Denies dizziness or lightheadedness. No vertigo. Wants to go home. Patient does not want to go to SNF. Physical exam General: Alert, Oriented x3, Cooperative HEENT: Pale conjunctiva.? Tenderness over the occipital has resolved. No hematoma/bruise PERRLA, EOMI, Normocephalic Oral: No Gingival or Mucosal Lesions/ Ulcerations Neck: Supple, No JVD, Negative Carotid Bruits Lungs:? Air entry diminished in bilateral lung bases.? No crepitation/rhonchi Cardiovascular: Regular rate, Regular Rhythm, Normal S1, Normal S2, No murmurs Abdomen: Bowel Sounds Present, Soft, Non Tender, Non-Distended : No renal angle tenderness.? No suprapubic tenderness. Extremities: No edema, Capillary Refill Less than 3 Seconds Skin: No rashes, No breakdown Musculoskeletal: No Tenderness to Palpation of Joints or Extremities.? Bilateral degenerative arthritis/bony prominences of knee.? ROM at hip and knee joints restricted. Neurological: Cranial nerves II-XII grossly intact, DTR? 2+/4 and Symmetrical Psych/Mental Status: Flat affect ABG / Lab / Microbiology Data Result Diagrams: 01/19/22 05:42 01/19/22 05:42 Discharge Plan Admission Admit Date/Time: 01/18/22 02:38 Primary Reason for Your Visit: Fall with head injury Attending Provider: Nick Romano Primary Care Provider: Alvarez Montanez Consulting Providers: Aleksandra Hurley Instructions Additional Instructions / Restrictions: You will need repeat CBC in 3-5 days by PCP to re-check hemoglobin. Discharge Orders/Prescriptions Prescriptions: New pantoprazole 20 mg Tablet,Delayed Release (Dr/Ec) 20 mg PO BID 30 Days Qty: 60 0RF ferrous sulfate 325 mg (65 mg iron) tablet,delayed release (DR/EC) 325 mg PO TID Qty: 90 0RF Eliquis 5 mg tablet 5 mg PO BID Qty: 60 0RF ascorbic acid (vitamin C) 500 mg tablet 500 mg PO BID Qty: 60 2RF Continued albuterol sulfate [ProAir HFA] 90 mcg/actuation HFA aerosol inhaler 2 puff INHALATION Q4H PRN (Reason: shortness of breath or wheezing) venlafaxine 75 mg capsule,extended release 24hr 75 mg PO DAILY Ensure Compact Liquid 118 ml PO DAILY Label Comments: 2 ENSURE'S DAILY carbidopa-levodopa 50-200 mg tablet extended release See Rx Instructions .ROUTE .COMPLEX Qty: 90 3RF Rx Instructions: Take 1 tablet PO daily for one week then 1 BID for one week then 1 TID thereafter. levetiracetam [Keppra] 500 mg tablet 500 mg PO BID Qty: 30 3RF Dulera 100-5 mcg/actuation Hfa Aerosol Inhaler 2 puff INHALATION Q12H PRN (Reason: sob) venlafaxine 37.5 mg capsule,extended release 24hr 37.5 mg PO DAILY Label Comments: TAKE 1 CAPSULE BY MOUTH ONCE DAILY WITH 75MG CAPSULE . APPOINTMENT REQUIRED FOR FUTURE REFILLS Rx Instructions: Take daily with 75 mg dose clonazepam 1 mg tablet 1 mg PO BID atorvastatin 80 mg tablet 80 mg PO QHS Label Comments: TAKE 1 TABLET BY MOUTH ONCE DAILY mirtazapine 7.5 mg tablet 7.5 mg PO QHS Label Comments: TAKE 1 TABLET BY MOUTH AT BEDTIME metoprolol succinate 100 mg tablet extended release 24 hr 100 mg PO DAILY Qty: 0 0RF Label Comments: TAKE (1) TABLET BY MOUTH ONCE DAILY Rx Instructions: Hold for heart less than 60 or systolic blood pressure less than 100 mmHg. furosemide [Lasix] 20 mg tablet 20 mg PO DAILY PRN (Reason: leg swelling) Qty: 30 0RF Rx Instructions: Do not take if systolic blood pressure is less than 110 mmHg spironolactone 50 mg tablet 50 mg PO DAILY Qty: 0 0RF Label Comments: TAKE 1 TABLET BY MOUTH ONCE DAILY. Rx Instructions: Hold if serum potassium more than 4.5 tizanidine 4 mg tablet 4 mg PO Q8H PRN (Reason: muscle spasticity) Qty: 15 0RF losartan 25 mg tablet 100 mg PO DAILY Rx Instructions: Hold for SBP less than 110 mmHg oxycodone-acetaminophen [Percocet] 5-325 mg tablet 1 tab PO Q6H PRN (Reason: pain) 3 Days Qty: 12 0RF Discontinued Xarelto 20 mg Tablet 20 mg PO DAILY Rx Instructions: must administer with evening meal Referrals / Follow Up: Chapincito Castro MD [STAFF PHYSICIAN] - See Referral Note (As scheduled 02/20/22) Alvarez Montanez MD [Primary Care Provider] - See Referral Note (3-5 days) Carline Whatley DIRECTOR FINANCIAL PLANNING, DIRECTOR FINANCIAL PLANNING-C [Nurse Practitioner] - See Referral Note (3-5 days) Disposition Disposition (needs filled in before D/C Order can be placed): Home, Self Care Charges/Coding Visit Charges OBSV E&M: 57791 Observation care discharge
[2022-01-19] MEDS: Acetaminophen 325 MG Tablet 650 MG PO (13:10)
--- NOTE | 2022-01-19 13:41 | CASEMGMT ---
Addendum entered by Kathryn Corral 01/19/22 15:39: [facility] SW let patient know that SW has called at least 19 different home health agencies and no one is able to take her. Patient said that is fine and she just wants to get home. Plan: Home without home health as SW was not able to find any agencies to accept patient. Kathryn Corral [employer]INTER CERTIFIED NURSE AIDE Addendum entered by Kathryn Corral 01/19/22 15:28: SW called [facility] and they cannot accept patient. SW is still waiting on [facility]. Kathryn Corral [employer] PRINTER CERTIFIED NURSE AIDE Addendum entered by Kathryn Corral 01/19/22 14:27: SW received a call from [facility] and they will have to decline patient due to staffing. SW did fax a referral to [facility]. SW is also waiting on [facility]. Kathryn Corral [employer] PRINTER CERTIFIED NURSE AIDE Addendum entered by Kathryn Corral 01/19/22 14:13: A total of 5 agencies have now declined patient. Await last 2 agencies responses. Kathryn ROWE Original Note: SW spoke with patient and she would like home health. Patient said she has no preference and told SW anyone will work. SW called at least 19 home health agencies. Out of the 19 only 7 agreed to look at referral. Out of the 7 so far 2 have declined. Await answers from the other 5 agencies. Kathryn ROWE
== END 2022-01-19 11:44 | disposition home or self-care (01) ==
LOC: ED 01-18 01:45 → PCU 01-18 03:15
PROVIDERS: Admitting Provider Family Medicine; Emergency Provider Emergency Medicine; PCP Internal Medicine; Visit Provider Internal Medicine
DX: S06.0X0A Concussion without loss of consciousness, initial encounter (principal); G20 Parkinson's disease; J44.9 Chronic obstructive pulmonary disease, unspecified; I11.0 Hypertensive heart disease with heart failure; I50.32 Chronic diastolic (congestive) heart failure; J96.11 Chronic respiratory failure with hypoxia; E66.01 Morbid (severe) obesity due to excess calories; Z68.41 Body mass index [BMI] 40.0-44.9, adult; G40.909 Epilepsy, unspecified, not intractable, without status epilepticus; F41.9 Anxiety disorder, unspecified; E78.5 Hyperlipidemia, unspecified; G47.33 Obstructive sleep apnea (adult) (pediatric); Z79.01 Long term (current) use of anticoagulants; Z79.51 Long term (current) use of inhaled steroids; R04.0 Epistaxis; D62 Acute posthemorrhagic anemia; R62.7 Adult failure to thrive; M19.90 Unspecified osteoarthritis, unspecified site; I25.10 Atherosclerotic heart disease of native coronary artery without angina pectoris; E03.9 Hypothyroidism, unspecified; G89.4 Chronic pain syndrome; S20.20XA Contusion of thorax, unspecified, initial encounter; F32.A Depression, unspecified; Y93.9 Activity, unspecified; Y99.9 Unspecified external cause status; W19.XXXA Unspecified fall, initial encounter; Y92.9 Unspecified place or not applicable; K21.9 Gastro-esophageal reflux disease without esophagitis; Z87.891 Personal history of nicotine dependence; Z86.718 Personal history of other venous thrombosis and embolism; Z79.899 Other long term (current) drug therapy; Z99.81 Dependence on supplemental oxygen; Z86.74 Personal history of sudden cardiac arrest; Z86.711 Personal history of pulmonary embolism
CPT/HCPCS: J2916; G0463; 36415; 36430; 70450; 80048; 80053; 82607; 82728; 82746; 83540; 83550; 83690; 84439; 84443; 84484; 85014; 85018; 85025; 85610; 86850; 86900; 86901; 86920; 86922; 93005; 94640; 94762; 96361; 96365; 96366; 96375; 97162; 97166; 99218; 99251; 99285; J7030; J7050; P9016; A4216; G0378; J2405

== ENCOUNTER 2022-02-12 15:32 | Emergency (ER) | payer MEDICAID, SELFPAY ==
[2022-02-12 15:34] VITALS: BP 115/83; PULSE 59; RESP 18; TEMP 36.1; O2SAT 99; BMI 43.2
--- NOTE | 2022-02-12 15:53 | CT_ITS ---
EXAM: CT HEAD WITHOUT INTRAVENOUS CONTRAST CLINICAL INDICATION: fall, head injury TECHNIQUE: Multiple axial images were obtained of the head without intravenous contrast. This CT exam was performed using one or more of the following dose reduction techniques: automated exposure control, adjustment of the mA and/or kV according to patient size, and/or use of iterative reconstruction technique. This report was created using [employer] report generation technology. COMPARISON: CT Head dated 01/15/2022 FINDINGS: BRAIN AND EXTRA-AXIAL SPACES: Normal. No intra- or extra-axial hemorrhage. No evidence of acute infarct. No intracranial mass or mass effect. There is preservation of the kramer/white matter interface. Posterior fossa structures are unremarkable. Ventricles are appropriate for age. No hydrocephalus. Basal cisterns are patent. BONES/JOINTS: Normal. No discrete lytic or blastic abnormalities. SINUSES: Minimal fluid noted within the right maxillary sinus. MASTOID AIR CELLS: Normal. Clear. ORBITS: Visualized globes, extraocular muscles, optic nerves and retrobulbar fat appear unremarkable. CT/Brain/Head without Contrast IMPRESSION: No acute intracranial abnormality. Electronically Signed: Faisal Cruz MD at 17:00 EDT ,
--- NOTE | 2022-02-12 15:53 | ED.VIS.FALL ---
HPI HPI - Fall History of Present Illness Chief Complaint: Fall Detail of Chief Complaint: Fall that occurred prior arrival to emergency department Informant: patient Narrative Narrative: Patient presents to the emergency department with a fall that occurred prior to arrival in the emergency department. Patient presents via EMS from home. Patient lives alone. Patient states she was moving close from the washer to the dryer when she lost her balance and fell with her back against the cabinets of the sink injuring her back. She does not think she struck her head. She also complains of some pain in her right shoulder. Patient states she had a fall 3 days ago for which she did not seek care and has ecchymosis and bruising about her right orbit. Patient is on apixaban. Patient has history of Parkinson's and states she has poor balance control. Patient states that her family doctor is trying to get her into palliative care. Patient denies recent illness. [facility] Medical History (Updated 02/12/22 @ 17:[address] Geovani Hilliard, ) Abnormal cardiac enzyme level Acute and chronic respiratory failure Acute respiratory failure with hypoxia and hypercapnia LEIGH ANN (acute kidney injury) Anemia Anemia Anemia Anxiety and depression Back pain Bilateral peripheral pulmonary emboli BiPAP (biphasic positive airway pressure) dependence Breast infection Cancer Cardiac arrest Cardiology follow-up encounter Cardiopulmonary arrest with successful resuscitation Chest pain Chronic anemia Chronic narcotic dependence Compression fracture of T5 vertebra Compression fracture of T6 vertebra Concussion Congestive heart failure COPD (chronic obstructive pulmonary disease) COPD exacerbation Coronary artery disease CPAP (continuous positive airway pressure) dependence Debility Dependence on continuous supplemental oxygen Depression Diastolic dysfunction DVT (deep vein thrombosis) in DVT (deep venous thrombosis) Essential hypertension Fall Falls frequently Former smoker FTT (failure to thrive) in adult GERD (gastroesophageal reflux disease) H/O long-term (current) use of anticoagulants HLD (hyperlipidemia) Hx of cardiovascular stress test Hx of echocardiogram Hypertension Hypothyroidism Morbid obesity MSSA (methicillin susceptible Staphylococcus aureus) pneumonia Myocardial infarct Obesity On home oxygen therapy STEPHANIE (obstructive sleep apnea) Parkinson disease Pulmonary embolism Restrictive lung disease Right rib fracture Seizure disorder Seizures Sleep apnea SOB (shortness of breath) Syncope and collapse TIA (transient ischemic attack) TIA (transient ischemic attack) Wears dentures Wears glasses Home Medications albuterol sulfate 90 mcg/actuation aerosol inhaler (ProAir HFA) 2 puff inhalation Q4H PRN shortness of breath or wheezing 08/01/17 [History Last Taken 03/03/18] venlafaxine 75 mg capsule,extended release 24 hr 75 mg PO DAILY mental health 03/02/21 [History Last Taken 08/25/21] mometasone-formoterol HFA 100 mcg-5 mcg/actuation aerosol inhaler (Dulera) 2 puff inhalation Q12H PRN sob 03/15/21 [History Last Taken Unknown] venlafaxine 37.5 mg capsule,extended release 24 hr 37.5 mg PO DAILY Depression 04/25/21 [History Last Taken 08/25/21] clonazepam 1 mg tablet 1 mg PO BID anxiety 05/09/21 [History Last Taken 08/25/21] food supplemt, lactose-reduced (Ensure Compact oral liquid) 118 ml PO DAILY supplement 05/24/21 [History Last Taken 08/25/21] atorvastatin 80 mg tablet 80 mg PO QHS cholesterol 08/26/21 [History Last Taken 08/25/21] mirtazapine 7.5 mg tablet 7.5 mg PO QHS sleep 08/26/21 [History Last Taken Unknown] furosemide 20 mg tablet (Lasix) 20 mg PO DAILY PRN leg swelling #30 tabs 08/31/21 [Rx Last Taken 08/25/21] metoprolol succinate 100 mg tablet,extended release 24 hr 100 mg PO DAILY blood pressure #0 tabs 08/31/21 [Rx Last Taken 08/25/21] spironolactone 50 mg tablet 50 mg PO DAILY diuretic #0 tabs 08/31/21 [Rx Last Taken 08/25/21] tizanidine 4 mg tablet 4 mg PO Q8H PRN muscle spasticity #15 tabs 09/22/21 [Rx Last Taken Unknown] losartan 25 mg tablet 100 mg PO DAILY blood pressure 11/03/21 [History Last Taken Unknown] carbidopa ER 50 mg-levodopa 200 mg tablet,extended release See Rx Instructions .Route .COMPLEX #90 tabs 12/12/21 [Rx Last Taken Unknown] levetiracetam 500 mg tablet (Keppra) 500 mg PO BID seizures #30 tabs 12/12/21 [Rx Last Taken Unknown] oxycodone-acetaminophen 5 mg-325 mg tablet (Percocet) 1 tab PO Q6H PRN pain 3 days #12 tabs 01/15/22 [Rx Last Taken Unknown] apixaban 5 mg tablet (Eliquis) 5 mg PO BID #60 tabs 01/19/22 [Rx Last Taken Unknown] ascorbic acid (vitamin C) 500 mg tablet 500 mg PO BID #60 tabs 01/19/22 [Rx Last Taken Unknown] ferrous sulfate 325 mg (65 mg iron) tablet,delayed release 325 mg PO TID #90 tabs 01/19/22 [Rx Last Taken Unknown] pantoprazole 20 mg tablet,delayed release 20 mg PO BID 30 days #60 tabs 01/19/22 [Rx Last Taken Unknown] oxycodone-acetaminophen 5 mg-325 mg tablet 1 tab PO Q6H PRN PRN Pain 3 days #12 TABLETS 02/12/22 [Rx Last Taken Unknown] Allergy/AdvReac Type Severity Reaction Status Date / Time aspirin Allergy Hives Verified 01/15/22 19:22 dicyclomine Allergy Itching Verified 01/15/22 19:22 ibuprofen Allergy Hives Verified 01/15/22 19:22 ketorolac tromethamine Allergy Angioedema Verified 01/15/22 19:22 [From Toradol] meperidine HCl [From Demerol] Allergy seizures Verified 01/15/22 19:22 nitroglycerin Allergy Angioedema Verified 01/15/22 19:22 nut - unspecified Allergy Hives Verified 01/15/22 19:22 Penicillins [PCN] Allergy Hives Verified 01/15/22 19:22 tramadol HCl [From Ultram] Allergy Angioedema Verified 01/15/22 19:22 Family History Brother Myocardial infarction Asthma Mental disorder Psychiatric care Suicide attempt Father Colon cancer Brother Mental disorder Aunt Parkinson disease Sister Breast cancer Cervical cancer Ovarian cancer Sister Cervical cancer Ovarian cancer Mother Cancer History of blood clots Hypertension Surgical History History of appendectomy History of cardiac catheterization History of cholecystectomy History of cholecystectomy History of esophagogastroduodenoscopy (EGD) History of hysterectomy History of left breast biopsy History of left heart catheterization (LHC) (~04/22/21) History of lumpectomy of left breast Hx of appendectomy S/P lumpectomy, left breast Social History household members: none Smoking Status: Former smoker quit date: 01/21/16 pack-years: 32 second hand exposure: Yes alcohol intake: never substance use type: does not use ROS ROS ED ROS Narrative Fall Review of Systems ROS Unobtainable: other Constitutional Constitutional ED: Reports lethargy; Denies chills, fever(s), sweats or weight loss Eyes Eyes: Denies blurry vision, change in vision or diplopia ENT ENT ED: Denies rhinorrhea or sore throat Cardiovascular Cardiovascular: Reports chest pain and racing heartbeat; Denies orthopnea Respiratory/Chest Respiratory/Chest: Reports dyspnea and dyspnea on exertion; Denies cough, orthopnea or sputum Gastrointestinal Gastrointestinal: Denies abdominal pain, diarrhea, nausea or vomiting Genitourinary Genitourinary ED: Denies dysuria, hematuria or urinary frequency Musculoskeletal Musculoskeletal: Reports back pain and other Details: Right shoulder pain ; Denies arthralgias, myalgias or neck pain Integumentary Denies abscess, Abrasions or rash Neurologic Neurologic: Denies headache(s) or weakness Psychiatric Psychiatric: Denies anxiety, depression or suicidal thoughts Endocrine Endocrinology: Denies polydipsia, polyphagia or polyuria Hematologic/Lymphatic Hematologic/Lymphatic: Denies easy bleeding, easy bruising or lymphadenopathy Allergic/Immunologic Allergic/Immunologic ED: Denies mouth swelling, tongue swelling or urticaria EXAM Physical Exam Const Vital Signs: 02/12/22 15:34 02/12/22 15:39 Temperature 97.0 F L Temperature Source Temporal Pulse Rate 59 L Respiratory Rate 18 Respiratory Effort Normal Respiratory Depth Normal Respiratory Pattern Normal Blood Pressure 115/83 H Blood Pressure Mean 93 Pulse Ox 99 Oxygen Delivery Method Nasal Cannula Oxygen Flow Rate (L/min) 3 Positive well nourished and well developed General Appearance ED: well developed and NAD HEENT Reports TM's clear and moist mucous membranes HEENT Narrative: Patient has ecchymosis and bruising about the right orbit in different stages of healing. No bony deformity noted. Patient has no C-spine tenderness on palpation. normocephalic and atraumatic; Negative for trauma or tenderness Tympanic Membrane ED: Yes TM's clear Eyes PERRL and EOMs intact bilaterally General Eye ED: Negative for pale conjunctiva or scleral icterus Neck no lymphadenopathy, supple and no JVD General: Negative for tenderness Chest Wall inspection of chest normal and palpation of chest normal Chest: Negative for tenderness Resp normal respiratory effort and clear to auscultation bilaterally Effort and Inspection: Negative for respiratory distress or pain with movement Auscultation: Negative for rhonchi, wheezes or diminished lung sounds Cardio regular rate, regular rhythm, S1 normal heart sound, S2 normal heart sound and no murmurs Peripheral Pulses: pulses 2+ throughout GI normal to inspection, nondistended, normoactive bowel sounds, soft to palpation, non-tender, non-distended and no masses Back/Spine no CVA tenderness Back/Spine Narrative: Patient has tenderness palpation over the lumbar spine diffusely. There is no ecchymosis or bruising noted. She has no tenderness over the lumbar paraspinal musculature. Extremity Extremity Narrative: Right shoulder-no deformity and no sulcus sign noted. She has some diffuse tenderness palpation about the glenohumeral joint. She is neurovascular intact distally. Decreased range of motion secondary to pain. General Extremety ED: Negative for edema General Extremity: Negative for edema Neuro oriented x3, CN's II-XII intact bilaterally, no sensory deficits noted and gait normal Sensorium / Orientation: awake, alert, oriented to person, oriented to place and oriented to time Motor Exam: strength 5/5 throughout and strength abnormal Psych mental status grossly normal Skin no rashes or lesions noted and no wounds MDM MDM MDM Narrative Medical decision making narrative: Patient had a CT scan of the brain without contrast that was unremarkable. Patient also had x-rays of her lumbar spine as well as her right shoulder which did not show any fractures. At this point she was given a dose of Dilaudid 1 mg IM and Zofran 4 mg IM and she was ambulated. Patient is comfortable going home and states that she can have a family member stay with her. I will give her a prescription for a few Percocet for severe pain. She is advised to follow-up with her primary care physician 3 to 5 days. Lab Data Attestation: I reviewed the patient's lab results. Radiography Diagnostic Testing: Clinical Impression(s) from Imaging Studies Brain CT 02/12/22 15:53 IMPRESSION: No acute intracranial abnormality. Electronically Signed: Faisal Cruz MD at 17:00 EDT , Lumbar Spine X-Ray 02/12/22 16:10 IMPRESSION: 1. No acute fracture or subluxation. 2. Mild disc space narrowing at L3-4 and L4-5. Electronically Signed: Faisal Cruz MD at 17:01 EDT , Shoulder X-Ray 02/12/22 16:10 IMPRESSION: Negative right shoulder x-rays. Electronically Signed: Faisal Cruz MD at 17:00 EDT , Discharge Plan Triage Chief Complaint: Fall ED Provider: Geovani Hilliard Dx/Rx/DC Orders Clinical Impression: Fall, Back contusion, Contusion of right shoulder Instructions: ED Back Contusion, ED Mechanical Fall, ED Shoulder Contusion Prescriptions: New oxycodone-acetaminophen [oxycodone-acetaminophen] 1 TABLET tablet 1 tab PO Q6H PRN PRN (Reason: Pain) 3 Days Qty: 12 0RF No Action albuterol sulfate [ProAir HFA] 90 mcg/actuation HFA aerosol inhaler 2 puff INHALATION Q4H PRN (Reason: shortness of breath or wheezing) venlafaxine 75 mg capsule,extended release 24hr 75 mg PO DAILY Ensure Compact Liquid 118 ml PO DAILY Label Comments: 2 ENSURE'S DAILY carbidopa-levodopa 50-200 mg tablet extended release See Rx Instructions .ROUTE .COMPLEX Qty: 90 3RF Rx Instructions: Take 1 tablet PO daily for one week then 1 BID for one week then 1 TID thereafter. levetiracetam [Keppra] 500 mg tablet 500 mg PO BID Qty: 30 3RF Dulera 100-5 mcg/actuation Hfa Aerosol Inhaler 2 puff INHALATION Q12H PRN (Reason: sob) venlafaxine 37.5 mg capsule,extended release 24hr 37.5 mg PO DAILY Label Comments: TAKE 1 CAPSULE BY MOUTH ONCE DAILY WITH 75MG CAPSULE . APPOINTMENT REQUIRED FOR FUTURE REFILLS Rx Instructions: Take daily with 75 mg dose clonazepam 1 mg tablet 1 mg PO BID atorvastatin 80 mg tablet 80 mg PO QHS Label Comments: TAKE 1 TABLET BY MOUTH ONCE DAILY mirtazapine 7.5 mg tablet 7.5 mg PO QHS Label Comments: TAKE 1 TABLET BY MOUTH AT BEDTIME metoprolol succinate 100 mg tablet extended release 24 hr 100 mg PO DAILY Qty: 0 0RF Label Comments: TAKE (1) TABLET BY MOUTH ONCE DAILY Rx Instructions: Hold for heart less than 60 or systolic blood pressure less than 100 mmHg. furosemide [Lasix] 20 mg tablet 20 mg PO DAILY PRN (Reason: leg swelling) Qty: 30 0RF Rx Instructions: Do not take if systolic blood pressure is less than 110 mmHg spironolactone 50 mg tablet 50 mg PO DAILY Qty: 0 0RF Label Comments: TAKE 1 TABLET BY MOUTH ONCE DAILY. Rx Instructions: Hold if serum potassium more than 4.5 tizanidine 4 mg tablet 4 mg PO Q8H PRN (Reason: muscle spasticity) Qty: 15 0RF losartan 25 mg tablet 100 mg PO DAILY Rx Instructions: Hold for SBP less than 110 mmHg oxycodone-acetaminophen [Percocet] 5-325 mg tablet 1 tab PO Q6H PRN (Reason: pain) 3 Days Qty: 12 0RF pantoprazole 20 mg Tablet,Delayed Release (Dr/Ec) 20 mg PO BID 30 Days Qty: 60 0RF ferrous sulfate 325 mg (65 mg iron) tablet,delayed release (DR/EC) 325 mg PO TID Qty: 90 0RF Eliquis 5 mg tablet 5 mg PO BID Qty: 60 0RF ascorbic acid (vitamin C) 500 mg tablet 500 mg PO BID Qty: 60 2RF Primary Care Provider: Alvarez Montanez Referrals: Alvarez Montanez MD [Primary Care Provider] - 3-5 Days Disposition Disposition: Home, Self Care
--- NOTE | 2022-02-12 16:10 | RAD_ITS ---
EXAM: XR LUMBOSACRAL SPINE, 2 OR 3 VIEWS CLINICAL INDICATION: Trauma TECHNIQUE: Frontal and lateral views of the lumbar spine and sacrum. This report was created using [employer] report [employer] technology. COMPARISON: None. FINDINGS: VERTEBRAE: Normal. Preserved vertebral body height. No fracture. No spondylolisthesis. Preservation of the normal lumbar lordosis. No significant facet arthropathy. DISC SPACES: Mild narrowing of the L3-4 and L4-5 disc spaces. RAD/Lumbar Spine 2 or 3 Views IMPRESSION: 1. No acute fracture or subluxation. 2. Mild disc space narrowing at L3-4 and L4-5. Electronically Signed: Faisal Cruz MD at 17:01 EDT ,
--- NOTE | 2022-02-12 16:10 | RAD_ITS ---
EXAM: XR RIGHT SHOULDER COMPLETE, 2 OR MORE VIEWS CLINICAL INDICATION: Trauma TECHNIQUE: Two or more views of the right shoulder. This report was created using [employer] report generation technology. COMPARISON: None. FINDINGS: BONES/JOINTS: Normal. No acute fracture. No subluxation. Normal alignment. Preservation of the joint space. No sclerotic or destructive changes observed. SOFT TISSUES: Normal. No soft tissue swelling or gas. No radiopaque foreign body. RAD/Shoulder min 2 Views IMPRESSION: Negative right shoulder x-rays. Electronically Signed: Faisal Cruz MD at 17:00 EDT ,
[2022-02-12] MEDS: HYDROmorphone 1 MG/ML Syringe IM (17:29)
[2022-02-12] MEDS: Ondansetron 4 MG/2 ML Vial IM (17:29)
[2022-02-12 17:55] VITALS: BP 120/76; PULSE 62; RESP 16; O2SAT 99
== END 2022-02-12 18:05 | disposition home or self-care (01) ==
PROVIDERS: Emergency Provider Emergency Medicine; PCP Internal Medicine; Visit Provider Emergency Medicine
DX: S40.011A Contusion of right shoulder, initial encounter (principal); S20.229A Contusion of unspecified back wall of thorax, initial encounter; W01.198A Fall on same level from slipping, tripping and stumbling with subsequent striking against other object, initial encounter; Y93.E2 Activity, laundry; Y92.009 Unspecified place in unspecified non-institutional (private) residence as the place of occurrence of the external cause; G20 Parkinson's disease; I25.10 Atherosclerotic heart disease of native coronary artery without angina pectoris; I11.0 Hypertensive heart disease with heart failure; I50.9 Heart failure, unspecified; G40.909 Epilepsy, unspecified, not intractable, without status epilepticus; J44.9 Chronic obstructive pulmonary disease, unspecified; E78.5 Hyperlipidemia, unspecified; E03.9 Hypothyroidism, unspecified; F11.20 Opioid dependence, uncomplicated; G47.33 Obstructive sleep apnea (adult) (pediatric); E66.01 Morbid (severe) obesity due to excess calories; I25.2 Old myocardial infarction; Z79.01 Long term (current) use of anticoagulants; Z99.81 Dependence on supplemental oxygen; Z79.899 Other long term (current) drug therapy; Z86.73 Personal history of transient ischemic attack (TIA), and cerebral infarction without residual deficits; Z87.891 Personal history of nicotine dependence
CPT/HCPCS: 70450; 72100; 73030; 96372; 99284; J2405

== ENCOUNTER 2022-03-06 16:44 | Emergency (ER) | payer MEDICAID, SELFPAY ==
[2022-03-06 16:44] VITALS: BP 129/104; PULSE 96; RESP 16; TEMP 36.6; O2SAT 96; BMI 36.3
[2022-03-06 18:27] VITALS: BP 133/88; PULSE 75; RESP 24; O2SAT 99
--- NOTE | 2022-03-06 18:43 | EX.ED.DYSGE1 ---
HPI History of Present Illness Chief Complaint: Flank Pain Informant: patient Onset/Context/Timing Onset: Yesterday Context: Gradual Onset Current Severity: Mild Maximum Severity: Moderate Narrative Narrative: Patient presents secondary to right back pain. She states she fell yesterday striking her back against the refrigerator. Good on her right leg. She is a history of Parkinson's disease and states that she usually gets around by wheelchair. She is able to stand long enough to transfer and get herself a glass of water. She states she has not been able to stand today. [facility] Medical History Abnormal cardiac enzyme level Acute and chronic respiratory failure Acute respiratory failure with hypoxia and hypercapnia LEIGH ANN (acute kidney injury) Anemia Anxiety and depression Back pain Bilateral peripheral pulmonary emboli BiPAP (biphasic positive airway pressure) dependence Breast infection Cancer Cardiology follow-up encounter Cardiopulmonary arrest with successful resuscitation Chest pain Chronic anemia Chronic narcotic dependence Compression fracture of T5 vertebra Compression fracture of T6 vertebra Concussion Congestive heart failure COPD (chronic obstructive pulmonary disease) COPD exacerbation Coronary artery disease CPAP (continuous positive airway pressure) dependence Debility Depression Diastolic dysfunction DVT (deep vein thrombosis) in DVT (deep venous thrombosis) Essential hypertension Falls frequently Former smoker FTT (failure to thrive) in adult GERD (gastroesophageal reflux disease) H/O long-term (current) use of anticoagulants HLD (hyperlipidemia) Hx of cardiovascular stress test Hx of echocardiogram Hypothyroidism Morbid obesity MSSA (methicillin susceptible Staphylococcus aureus) pneumonia Myocardial infarct On home oxygen therapy STEPHANIE (obstructive sleep apnea) Parkinson disease Pulmonary embolism Restrictive lung disease Right rib fracture Seizure disorder Seizures Sleep apnea Syncope and collapse TIA (transient ischemic attack) Wears dentures Wears glasses Home Medications albuterol sulfate 90 mcg/actuation aerosol inhaler (ProAir HFA) 2 puff inhalation Q4H PRN shortness of breath or wheezing 08/01/17 [History Last Taken 03/03/18] venlafaxine 75 mg capsule,extended release 24 hr 75 mg PO DAILY mental health 03/02/21 [History Last Taken 08/25/21] mometasone-formoterol HFA 100 mcg-5 mcg/actuation aerosol inhaler (Dulera) 2 puff inhalation Q12H PRN sob 03/15/21 [History Last Taken Unknown] venlafaxine 37.5 mg capsule,extended release 24 hr 37.5 mg PO DAILY Depression 04/25/21 [History Last Taken 08/25/21] clonazepam 1 mg tablet 1 mg PO BID anxiety 05/09/21 [History Last Taken 08/25/21] food supplemt, lactose-reduced (Ensure Compact oral liquid) 118 ml PO DAILY supplement 05/24/21 [History Last Taken 08/25/21] atorvastatin 80 mg tablet 80 mg PO QHS cholesterol 08/26/21 [History Last Taken 08/25/21] mirtazapine 7.5 mg tablet 7.5 mg PO QHS sleep 08/26/21 [History Last Taken Unknown] furosemide 20 mg tablet (Lasix) 20 mg PO DAILY PRN leg swelling #30 tabs 08/31/21 [Rx Last Taken 08/25/21] metoprolol succinate 100 mg tablet,extended release 24 hr 100 mg PO DAILY blood pressure #0 tabs 08/31/21 [Rx Last Taken 08/25/21] spironolactone 50 mg tablet 50 mg PO DAILY diuretic #0 tabs 08/31/21 [Rx Last Taken 08/25/21] tizanidine 4 mg tablet 4 mg PO Q8H PRN muscle spasticity #15 tabs 09/22/21 [Rx Last Taken Unknown] losartan 25 mg tablet 100 mg PO DAILY blood pressure 11/03/21 [History Last Taken Unknown] carbidopa ER 50 mg-levodopa 200 mg tablet,extended release See Rx Instructions .Route .COMPLEX #90 tabs 12/12/21 [Rx Last Taken Unknown] levetiracetam 500 mg tablet (Keppra) 500 mg PO BID seizures #30 tabs 12/12/21 [Rx Last Taken Unknown] oxycodone-acetaminophen 5 mg-325 mg tablet (Percocet) 1 tab PO Q6H PRN pain 3 days #12 tabs 01/15/22 [Rx Last Taken Unknown] apixaban 5 mg tablet (Eliquis) 5 mg PO BID #60 tabs 01/19/22 [Rx Last Taken Unknown] ascorbic acid (vitamin C) 500 mg tablet 500 mg PO BID #60 tabs 01/19/22 [Rx Last Taken Unknown] ferrous sulfate 325 mg (65 mg iron) tablet,delayed release 325 mg PO TID #90 tabs 01/19/22 [Rx Last Taken Unknown] pantoprazole 20 mg tablet,delayed release 20 mg PO BID 30 days #60 tabs 01/19/22 [Rx Last Taken Unknown] oxycodone-acetaminophen 5 mg-325 mg tablet 1 tab PO Q6H PRN PRN Pain 3 days #12 TABLETS 02/12/22 [Rx Last Taken Unknown] Allergy/AdvReac Type Severity Reaction Status Date / Time aspirin Allergy Hives Verified 03/06/22 16:48 dicyclomine Allergy Itching Verified 03/06/22 16:48 ibuprofen Allergy Hives Verified 03/06/22 16:48 ketorolac tromethamine Allergy Angioedema Verified 03/06/22 16:48 [From Toradol] meperidine HCl [From Demerol] Allergy seizures Verified 03/06/22 16:48 nitroglycerin Allergy Angioedema Verified 03/06/22 16:48 nut - unspecified Allergy Hives Verified 03/06/22 16:48 Penicillins [PCN] Allergy Hives Verified 03/06/22 16:48 tramadol HCl [From Ultram] Allergy Angioedema Verified 03/06/22 16:48 Family History Brother Myocardial infarction Asthma Mental disorder Psychiatric care Suicide attempt Father Colon cancer Brother Mental disorder Aunt Parkinson disease Sister Breast cancer Cervical cancer Ovarian cancer Sister Cervical cancer Ovarian cancer Mother Cancer History of blood clots Hypertension Surgical History History of appendectomy History of cardiac catheterization History of cholecystectomy History of cholecystectomy History of esophagogastroduodenoscopy (EGD) History of hysterectomy History of left breast biopsy History of left heart catheterization (LHC) (~04/22/21) History of lumpectomy of left breast Hx of appendectomy S/P lumpectomy, left breast Social History household members: none Smoking Status: Former smoker quit date: 01/21/16 pack-years: 32 second hand exposure: Yes alcohol intake: never substance use type: does not use ROS ROS ED Constitutional Constitutional ED: Denies chills or fever(s) Eyes Eyes: Denies change in vision or discharge from eye(s) ENT ENT ED: Denies discharge from eye(s), rhinorrhea or sore throat Cardiovascular Cardiovascular: Denies chest pain or palpitations Respiratory/Chest Respiratory/Chest: Denies cough or dyspnea Gastrointestinal Gastrointestinal: Denies abdominal pain, diarrhea, nausea or vomiting Genitourinary Genitourinary ED: Denies difficulty urinating or dysuria Musculoskeletal Musculoskeletal: Reports back pain, extremity pain and neck pain Integumentary Denies Abrasions or rash Neurologic Neurologic: Reports other Details: Frequent spasms ; Denies headache(s) or weakness Psychiatric Psychiatric: Denies anxiety or depression Allergic/Immunologic Allergic/Immunologic ED: Denies lip swelling or urticaria EXAM Physical Exam Const Vital Signs: 03/06/22 16:44 03/06/22 18:27 Temperature 97.8 F Temperature Source Temporal Pulse Rate 96 75 Respiratory Rate 16 24 H Blood Pressure 129/104 H 133/88 H Blood Pressure Mean 112 103 Pulse Ox 96 99 Oxygen Delivery Method Room Air Nasal Cannula Oxygen Flow Rate (L/min) 3 Positive well nourished and well developed General Appearance ED: well developed HEENT Reports normocephalic and head/scalp atraumatic Eyes PERRL and EOMs intact bilaterally Neck supple Chest Wall inspection of chest normal and palpation of chest normal Resp normal respiratory effort and clear to auscultation bilaterally Cardio regular rate and regular rhythm GI normal to inspection, nondistended, normoactive bowel sounds Palpation: soft Back/Spine Back/Spine Narrative: No reproducible back pain. No abrasions or ecchymoses. Extremity Extremity Narrative: Right leg held in slight flexion. Neuro oriented x3 Neuro Narrative: Frequent spasms. Sensorium / Orientation: alert Psych mental status grossly normal Skin no rashes or lesions noted MDM MDM MDM Narrative Medical decision making narrative: Patient given morphine and Zofran for pain. Lab work and urinalysis obtained. Lab Data Labs: Laboratory Results - last 24 hr 03/06/22 03/06/22 03/06/22 18:35 18:35 19:05 WBC 8.6 RBC 2.82 L Hgb 7.9 L Hct 26.1 L MCV 92.6 MCH 28.0 MCHC 30.3 L RDW Std Deviation 50.5 H RDW Coeff of Immanuel 14.9 H Plt Count 346 MPV 10.3 Immature Gran % (Auto) 0.200 Neut % (Auto) 64.6 Lymph % (Auto) 26.6 Bourbon % (Auto) 6.1 Eos % (Auto) 2.0 Baso % (Auto) 0.5 Absolute Neuts (auto) 5.6 Absolute Lymphs (auto) 2.28 Nucleated RBC % 0.2 Sodium 138 Potassium 4.5 Chloride 105 Carbon Dioxide 26.0 Anion Gap 7 BUN 18 Creatinine 0.88 Estim Creat Clear Calc 66.82 Est GFR (MDRD) Af Amer 86 Est GFR (MDRD) Non-Af 71 BUN/Creatinine Ratio 20.5 H Glucose 98 Calcium 9.5 Urine Color Yellow Urine Clarity Clear Urine pH 6.0 Ur Specific York 1.020 Urine Protein 15 H Urine Glucose (UA) Normal Urine Ketones 5 H Urine Occult Blood Negative Urine Nitrite Negative Urine Bilirubin Negative Urine Urobilinogen Normal Ur Leukocyte Esterase 100 H Urine RBC 0 SEEN Urine WBC 5-10 SEEN Ur Squamous Epith Cells 0-5 SEEN Urine Bacteria 1+ Hyaline Casts 0-5 SEEN Urine Mucus 1+ Treatment and Re-Evaluation Narrative: On repeat evaluation patient resting comfortably. Lab work remarkable for hemoglobin of 7.9. This is actually increased compared to her last 3 or 4 values. Chemistry studies unremarkable. Urinalysis shows 1+ bacteria 5-10 white cells. No nitrites. There is no blood noted in the urine. I did have social work see the patient as I do have concerns with her safety at home living alone. She is adamant that she wants to go home. I will discharge her to home with a Lidoderm patch on her back. She will use Tylenol at home for pain. Discharge Plan Triage Chief Complaint: Flank Pain ED Provider: Sofia Kaplan Dx/Rx/DC Orders Clinical Impression: Fall, Back contusion Instructions: ED Back Contusion Prescriptions: No Action albuterol sulfate [ProAir HFA] 90 mcg/actuation HFA aerosol inhaler 2 puff INHALATION Q4H PRN (Reason: shortness of breath or wheezing) venlafaxine 75 mg capsule,extended release 24hr 75 mg PO DAILY Ensure Compact Liquid 118 ml PO DAILY Label Comments: 2 ENSURE'S DAILY carbidopa-levodopa 50-200 mg tablet extended release See Rx Instructions .ROUTE .COMPLEX Qty: 90 3RF Rx Instructions: Take 1 tablet PO daily for one week then 1 BID for one week then 1 TID thereafter. levetiracetam [Keppra] 500 mg tablet 500 mg PO BID Qty: 30 3RF Dulera 100-5 mcg/actuation Hfa Aerosol Inhaler 2 puff INHALATION Q12H PRN (Reason: sob) venlafaxine 37.5 mg capsule,extended release 24hr 37.5 mg PO DAILY Label Comments: TAKE 1 CAPSULE BY MOUTH ONCE DAILY WITH 75MG CAPSULE . APPOINTMENT REQUIRED FOR FUTURE REFILLS Rx Instructions: Take daily with 75 mg dose clonazepam 1 mg tablet 1 mg PO BID atorvastatin 80 mg tablet 80 mg PO QHS Label Comments: TAKE 1 TABLET BY MOUTH ONCE DAILY mirtazapine 7.5 mg tablet 7.5 mg PO QHS Label Comments: TAKE 1 TABLET BY MOUTH AT BEDTIME metoprolol succinate 100 mg tablet extended release 24 hr 100 mg PO DAILY Qty: 0 0RF Label Comments: TAKE (1) TABLET BY MOUTH ONCE DAILY Rx Instructions: Hold for heart less than 60 or systolic blood pressure less than 100 mmHg. furosemide [Lasix] 20 mg tablet 20 mg PO DAILY PRN (Reason: leg swelling) Qty: 30 0RF Rx Instructions: Do not take if systolic blood pressure is less than 110 mmHg spironolactone 50 mg tablet 50 mg PO DAILY Qty: 0 0RF Label Comments: TAKE 1 TABLET BY MOUTH ONCE DAILY. Rx Instructions: Hold if serum potassium more than 4.5 tizanidine 4 mg tablet 4 mg PO Q8H PRN (Reason: muscle spasticity) Qty: 15 0RF losartan 25 mg tablet 100 mg PO DAILY Rx Instructions: Hold for SBP less than 110 mmHg oxycodone-acetaminophen [Percocet] 5-325 mg tablet 1 tab PO Q6H PRN (Reason: pain) 3 Days Qty: 12 0RF pantoprazole 20 mg Tablet,Delayed Release (Dr/Ec) 20 mg PO BID 30 Days Qty: 60 0RF ferrous sulfate 325 mg (65 mg iron) tablet,delayed release (DR/EC) 325 mg PO TID Qty: 90 0RF Eliquis 5 mg tablet 5 mg PO BID Qty: 60 0RF ascorbic acid (vitamin C) 500 mg tablet 500 mg PO BID Qty: 60 2RF oxycodone-acetaminophen [oxycodone-acetaminophen] 1 TABLET tablet 1 tab PO Q6H PRN PRN (Reason: Pain) 3 Days Qty: 12 0RF Primary Care Provider: Alvarez Montanez Referrals: Alvarez Montanez MD [Primary Care Provider] - 5-7 Days Disposition Disposition: Home, Self Care
[2022-03-06] MEDS: Ondansetron 4 MG/2 ML Vial IV (18:50)
[2022-03-06] MEDS: Morphine 4 MG/ML Syringe IV (18:50)
[2022-03-06 18:52] LABS: Absolute Lymphocyte Count 2.28 X10^3/uL (0.83-4.51); Absolute Neutrophil Count 5.6 X10^3/uL (2.0-7.7); Basophil# 0.04 X10^3/uL; Basophil% 0.5 % (0-1); Eosinophil# 0.17 X10^3/uL; Hematocrit 26.1 % (37-47); Hemoglobin 7.9 g/dL (12.0-15.0); Lymphocyte # 2.28 X10^3/ul (0.83-4.51); Lymphocyte % 26.6 % (19-41); Mean Corp Hgb Conc 30.3 g/dL (32-36); Mean Corpuscular Volume 92.6 fL (81-99); Mean Platelet Vol. 10.3 fl (6.2-12.0); Monocyte# 0.52 X10^3/uL; Monocyte% 6.1 % (0-10); NRBC Flagged by Analyzer 0.2 % (0-5); Neutrophil # 5.55 X10^3/uL (2.7-7.7); Neutrophil % 64.6 % (47-70); Platelet Count 346 K/mm3 (150-450); RBC Distribution Width CV 14.9 % (11.6-14.6); RBC Distribution Width SD 50.5 fl (35.1-43.9); Red Blood Count 2.82 M/mm3 (4.2-5.4); White Blood Count 8.6 K/mm3 (4.4-11.0)
[2022-03-06 19:12] LABS: Anion Gap 7 (5-15); BUN 18 mg/dL (7-18); BUN/Creat Ratio 20.5 RATIO (10-20); Calcium,Total 9.5 mg/dL (8.5-10.1); Chloride 105 mmol/L (98-107); Creatinine, Serum 0.88 mg/dL (0.55-1.02); EST Glomerular Filtration Rate 71 mL/min (>60); Est Glom Filt Rate - Afr Amer 86 mL/min (>60); Estimated Creatinine Clearance 66.82 ml/min; Glucose 98 mg/dL (74-106); Potassium 4.5 mmol/L (3.5-5.1); Sodium Level 138 mmol/L (136-145)
[2022-03-06 19:13] LABS: Red Blood Cells-Urine 0 SEEN /hpf (0-5)
[2022-03-06 19:15] LABS: Color, Urine Yellow (Yellow); Glucose, Dipstick Normal (Normal); Ketone-Dipstick 5 mg/dl (Negative); Leukocyte Esterase-Dipstick 100 /ul (Negative); Nitrite-Dipstick Negative (Negative); Occult Blood-Urine Negative /ul (Negative); Protein-Dipstick 15 mg/dl (Negative); Urine Bilirubin Dipstick Negative (Negative); Urine Clarity Clear (Clear); Urine Urobilinogen Normal (Normal)
[2022-03-06 19:44] LABS: Bacteria 1+ /hpf (None Seen); Squamous Epithelial Cells - UA 0-5 SEEN /hpf (5-10); White Blood Cells 5-10 SEEN /hpf (0-5)
[2022-03-06 19:45] LABS: Hyaline Cast 0-5 SEEN /lpf (0-5); Mucous, Urine 1+ /hpf (<or=2+)
--- NOTE | 2022-03-06 20:49 | CM.ED ---
SW met with patient to determine level of safety at patient's home for discharge. MD stated patient wanted to go home. Information Source: Patient Living Will and HCPOA: None. SW provided her with Advanced Directives including HCPOA and Living Will. Next of Kin: rene Mckeoner, who lives 6 miles away from patient. PCP: Tarik Specialist: Neurologist at [place], name unknown and Dr. Black at [facility] Oncology Pharmacy: [facility] Prescription Coverage: Medicaid Lives by herself in one floor housing unit. Patient said that she gets wheelchair to get into the house and then she gets out at the front door and hangs on the stove to get into the house and then hangs on the washer to get into the bathroom. Patient said that she wants assisted living and has to call to get an assessment. Patient said that she is approved for [facility] but there are 3 on the waiting list so she is unsure how long it will be. ADL's: Patient said that she does not cook. She bathes by herself. Patient previously used a walker but for the past 2 weeks she has been jerking so she has been using a wheelchair. Patient said that when she has a bad day she stays in the recliner or bed. Patient said that she has a call light that detects when she is falling and she doesn't need to call anyone from [facility] Safe: Patient said that she was safe at home when talking about discharge. Patient said If I keep falling more I can always come in. Transportation: None. Patient does not drive Current DME. Cane, grab bars, walker, medical alert, wheelchair and 3L of oxygen from [employer]. Patient said that her doctor also completed the paperwork for palliative care for her. Patient has been at [facility] in the past. Patient said that social workers have attempted to find home health in the past but no one is able to come out( SW reviewed record and that was accurate as SW had made referrals for 19 home health agencies and only 5 reviewed the referral and 2 declined and there appeared to be no call backs from the other referrals). Patient said she had no home health. Patient said that she has a 9am meeting tomorrow with her casemanager from Medicaid. Patient said that she wants to go home to be with her dog. Patient said that her brother and sister live 6 miles away and she has a lifeline alert. SW expressed concern about patient's safety and patient said that she wants to go home. WILNER will send email to Pepper Villasenor at [facility] to see if they could assist and patient was fine with this referral. Patient said that if she continues to increase in her falls she will return to the ED. MD updated. Plan: Home. Referral to [facility]
[2022-03-06] MEDS: Lidocaine 5% Patch 1 PATCH TOPICAL (21:03)
[2022-03-06 21:05] VITALS: BP 121/54; PULSE 68
== END 2022-03-06 21:07 | disposition home or self-care (01) ==
PROVIDERS: Emergency Provider Emergency Medicine; PCP Internal Medicine; Visit Provider Emergency Medicine
DX: S20.229A Contusion of unspecified back wall of thorax, initial encounter (principal); G20 Parkinson's disease; J44.9 Chronic obstructive pulmonary disease, unspecified; E66.01 Morbid (severe) obesity due to excess calories; G40.909 Epilepsy, unspecified, not intractable, without status epilepticus; R10.9 Unspecified abdominal pain; W01.198A Fall on same level from slipping, tripping and stumbling with subsequent striking against other object, initial encounter; I25.10 Atherosclerotic heart disease of native coronary artery without angina pectoris; E78.5 Hyperlipidemia, unspecified; E03.9 Hypothyroidism, unspecified; K21.9 Gastro-esophageal reflux disease without esophagitis; R29.6 Repeated falls; F32.A Depression, unspecified; F41.9 Anxiety disorder, unspecified; Z87.891 Personal history of nicotine dependence; Z79.01 Long term (current) use of anticoagulants; Z99.81 Dependence on supplemental oxygen; Z79.899 Other long term (current) drug therapy
CPT/HCPCS: 80048; 81001; 85025; 96374; 96375; 99284; A4216; J2405

== ENCOUNTER 2022-03-15 17:00 | Emergency (ER) | payer MEDICAID, SELFPAY ==
[2022-03-15 17:02] VITALS: BP 120/86; PULSE 69; RESP 14; TEMP 36.8; O2SAT 98; BMI 37.4
--- NOTE | 2022-03-15 17:16 | CT_ITS ---
EXAM: CT CERVICAL SPINE WITHOUT INTRAVENOUS CONTRAST CLINICAL INDICATION: trauma TECHNIQUE: Helically acquired images were obtained of the cervical spine without intravenous contrast. 2D reformatted images were reviewed. CTDIvol = ( 28.47 ) mGy, DLP = ( 574.04 ) mGycm This CT exam was performed using one or more of the following dose reduction techniques: automated exposure control, adjustment of the mA and/or kV according to patient size, and/or use of iterative reconstruction technique. This report was created using [employer] report [employer] technology. COMPARISON: None. FINDINGS: VERTEBRAE: Unremarkable. No fracture. No traumatic subluxation. No discrete lytic or blastic abnormality. Normal alignment. Normal craniocervical junction and cervicothoracic junction. DISCS/SPINAL CANAL/NEURAL FORAMINA: Unremarkable. Disc heights are preserved. No critical stenosis. SOFT TISSUES: Unremarkable. No prevertebral soft tissue swelling. LYMPH NODES: Unremarkable. No cervical adenopathy. LUNG APICES: Unremarkable as visualized. Clear. CT/Spine Cervical without Contras IMPRESSION: No evidence of acute cervical spinal fracture or spondylolisthesis. Electronically Signed: Cooper Van MD at 17:53 EDT ,
--- NOTE | 2022-03-15 17:16 | CT_ITS ---
EXAM: CT HEAD WITHOUT INTRAVENOUS CONTRAST CLINICAL INDICATION: trauma TECHNIQUE: Multiple axial images were obtained of the head without intravenous contrast. CTDIvol = ( 44.99 ) mGy, DLP = ( 779.24 ) mGycm This CT exam was performed using one or more of the following dose reduction techniques: automated exposure control, adjustment of the mA and/or kV according to patient size, and/or use of iterative reconstruction technique. This report was created using Quantum report generation technology. COMPARISON: None. FINDINGS: BRAIN AND EXTRA-AXIAL SPACES: Unremarkable. No intra- or extra-axial hemorrhage. No evidence of acute infarct. No intracranial mass or mass effect. There is preservation of the kramer/white matter interface. Posterior fossa structures are unremarkable. Ventricles are appropriate for age. No hydrocephalus. Basal cisterns are patent. BONES/JOINTS: Unremarkable. No discrete lytic or blastic abnormalities. SINUSES: Unremarkable as visualized. Clear. MASTOID AIR CELLS: Unremarkable. Clear. ORBITS: Visualized globes, extraocular muscles, optic nerves and retrobulbar fat appear unremarkable. CT/Brain/Head without Contrast IMPRESSION: Negative head/brain CT without intravenous contrast. Electronically Signed: Cooper Van MD at 17:51 EDT ,
--- NOTE | 2022-03-15 17:17 | ED.VIS.FALL ---
HPI HPI - Fall History of Present Illness Chief Complaint: Fall Informant: patient Narrative Narrative: Patient presents with fall and injury to her head and left shoulder. She has frequent falls due to Parkinson's. She tries to transfer and that is when she has falls. She has fallen about 2 times in the last couple days. That is not that uncommon for her. But she states it hurts in her left shoulder. It is worse when she moves it. She also has soreness in the left side of her head. No visible bruising. No other injuries. She is still on Eliquis. [facility] Medical History Abnormal cardiac enzyme level Acute and chronic respiratory failure Acute respiratory failure with hypoxia and hypercapnia LEIGH ANN (acute kidney injury) Anemia Anxiety and depression Back pain Bilateral peripheral pulmonary emboli BiPAP (biphasic positive airway pressure) dependence Breast infection Cancer Cardiology follow-up encounter Cardiopulmonary arrest with successful resuscitation Chest pain Chronic anemia Chronic narcotic dependence Compression fracture of T5 vertebra Compression fracture of T6 vertebra Concussion Congestive heart failure COPD (chronic obstructive pulmonary disease) COPD exacerbation Coronary artery disease CPAP (continuous positive airway pressure) dependence Debility Depression Diastolic dysfunction DVT (deep vein thrombosis) in DVT (deep venous thrombosis) Essential hypertension Falls frequently Former smoker FTT (failure to thrive) in adult GERD (gastroesophageal reflux disease) H/O long-term (current) use of anticoagulants HLD (hyperlipidemia) Hx of cardiovascular stress test Hx of echocardiogram Hypothyroidism Morbid obesity MSSA (methicillin susceptible Staphylococcus aureus) pneumonia Myocardial infarct On home oxygen therapy STEPHANIE (obstructive sleep apnea) Pulmonary embolism Restrictive lung disease Right rib fracture Seizure disorder Seizures Sleep apnea Syncope and collapse TIA (transient ischemic attack) Wears dentures Wears glasses Home Medications albuterol sulfate 90 mcg/actuation aerosol inhaler (ProAir HFA) 2 puff inhalation Q4H PRN shortness of breath or wheezing 08/01/17 [History Last Taken 03/03/18] venlafaxine 75 mg capsule,extended release 24 hr 75 mg PO DAILY mental health 03/02/21 [History Last Taken 08/25/21] mometasone-formoterol HFA 100 mcg-5 mcg/actuation aerosol inhaler (Dulera) 2 puff inhalation Q12H PRN sob 03/15/21 [History Last Taken Unknown] venlafaxine 37.5 mg capsule,extended release 24 hr 37.5 mg PO DAILY Depression 04/25/21 [History Last Taken 08/25/21] clonazepam 1 mg tablet 1 mg PO BID anxiety 05/09/21 [History Last Taken 08/25/21] food supplemt, lactose-reduced (Ensure Compact oral liquid) 118 ml PO DAILY supplement 05/24/21 [History Last Taken 08/25/21] atorvastatin 80 mg tablet 80 mg PO QHS cholesterol 08/26/21 [History Last Taken 08/25/21] mirtazapine 7.5 mg tablet 7.5 mg PO QHS sleep 08/26/21 [History Last Taken Unknown] furosemide 20 mg tablet (Lasix) 20 mg PO DAILY PRN leg swelling #30 tabs 08/31/21 [Rx Last Taken 08/25/21] metoprolol succinate 100 mg tablet,extended release 24 hr 100 mg PO DAILY blood pressure #0 tabs 08/31/21 [Rx Last Taken 08/25/21] spironolactone 50 mg tablet 50 mg PO DAILY diuretic #0 tabs 08/31/21 [Rx Last Taken 08/25/21] tizanidine 4 mg tablet 4 mg PO Q8H PRN muscle spasticity #15 tabs 09/22/21 [Rx Last Taken Unknown] losartan 25 mg tablet 100 mg PO DAILY blood pressure 11/03/21 [History Last Taken Unknown] carbidopa ER 50 mg-levodopa 200 mg tablet,extended release See Rx Instructions .Route .COMPLEX #90 tabs 12/12/21 [Rx Last Taken Unknown] levetiracetam 500 mg tablet (Keppra) 500 mg PO BID seizures #30 tabs 12/12/21 [Rx Last Taken Unknown] apixaban 5 mg tablet (Eliquis) 5 mg PO BID #60 tabs 01/19/22 [Rx Last Taken Unknown] ascorbic acid (vitamin C) 500 mg tablet 500 mg PO BID #60 tabs 01/19/22 [Rx Last Taken Unknown] pantoprazole 20 mg tablet,delayed release 20 mg PO BID 30 days #60 tabs 01/19/22 [Rx Last Taken Unknown] ferrous sulfate 325 mg (65 mg iron) tablet,delayed release 325 mg PO DAILY 03/15/22 [History Last Taken Unknown] oxycodone-acetaminophen 5 mg-325 mg tablet (Percocet) 1 tab PO Q6H PRN pain 2 days #6 tabs 03/15/22 [Rx Last Taken Unknown] Allergy/AdvReac Type Severity Reaction Status Date / Time aspirin Allergy Hives Verified 03/15/22 17:02 dicyclomine Allergy Itching Verified 03/15/22 17:02 ibuprofen Allergy Hives Verified 03/15/22 17:02 ketorolac tromethamine Allergy Angioedema Verified 03/15/22 17:02 [From Toradol] meperidine HCl [From Demerol] Allergy seizures Verified 03/15/22 17:02 nitroglycerin Allergy Angioedema Verified 03/15/22 17:02 nut - unspecified Allergy Hives Verified 03/15/22 17:02 Penicillins [PCN] Allergy Hives Verified 03/15/22 17:02 tramadol HCl [From Ultram] Allergy Angioedema Verified 03/15/22 17:02 Family History Brother Myocardial infarction Asthma Mental disorder Psychiatric care Suicide attempt Father Colon cancer Brother Mental disorder Aunt Parkinson disease Sister Breast cancer Cervical cancer Ovarian cancer Sister Cervical cancer Ovarian cancer Mother Cancer leukemia History of blood clots Hypertension Surgical History History of cardiac catheterization History of cholecystectomy History of esophagogastroduodenoscopy (EGD) History of hysterectomy History of left breast biopsy History of left heart catheterization (LHC) (~04/22/21) History of lumpectomy of left breast Hx of appendectomy S/P lumpectomy, left breast Social History household members: none current occupational status: unemployed Smoking Status: Former smoker quit date: 01/21/16 pack-years: 32 Electronic Cigarette Use: not used second hand exposure: Yes alcohol intake: never substance use type: does not use do you feel safe at home: No ROS ROS ED Constitutional Constitutional ED: Denies chills or fever(s) Eyes Eyes: Denies blurry vision, change in vision or diplopia ENT ENT ED: Denies rhinorrhea or sore throat Cardiovascular Cardiovascular: Denies chest pain or palpitations Respiratory/Chest Respiratory/Chest: Denies cough or dyspnea Gastrointestinal Gastrointestinal: Denies abdominal pain, nausea or vomiting Genitourinary Genitourinary ED: Denies hematuria Musculoskeletal Musculoskeletal: Reports other Details: See history of present illness. Patient is not sure if her neck hurts. She states the shoulder pain radiates up toward the neck though. ; Denies back pain Integumentary Reports other Details: No contusions visible in any of these areas. ; Denies Abrasions or rash Neurologic Neurologic: Reports headache(s) Hematologic/Lymphatic Hematologic/Lymphatic: Reports easy bleeding and easy bruising Allergic/Immunologic Allergic/Immunologic ED: Denies urticaria EXAM Physical Exam Const Vital Signs: 03/15/22 17:02 03/15/22 17:47 Temperature 98.2 F Temperature Source Temporal Pulse Rate 69 Respiratory Rate 14 Respiratory Effort Normal Non-Labored Respiratory Pattern Normal Blood Pressure 120/86 H Blood Pressure Mean 97 Pulse Ox 98 Oxygen Delivery Method Nasal Cannula Oxygen Flow Rate (L/min) 3 Positive well nourished and obese Nutritional Appearance: obese HEENT Reports normocephalic HEENT Narrative: I cannot see any areas of focal tenderness and there is no bruising or abrasions visible on her head face or neck. atraumatic Eyes EOMs intact bilaterally Neck Neck Narrative: Mild left paraspinal tenderness. Chest Wall inspection of chest normal Chest Narrative: No chest wall tenderness. No subcu air. Resp normal respiratory effort and no retractions Cardio regular rate GI non-tender Back/Spine no CVA tenderness Extremity Extremity Narrative: Patient has some mild nonfocal left shoulder tenderness. This does not extend over medially on the scapula. Clavicle is not tender. She is not tender down the arm elbow forearm or hand. Neuro oriented x3, no focal motor deficits and no sensory deficits noted Neuro Narrative: She states it sore and hard to move her left arm. But she has good strength. She has good sensation color capillary refill and pulses. Psych mental status grossly normal Skin Lesions: no lesions MDM MDM MDM Narrative Medical decision making narrative: CT of the head neck and shoulder x-ray showed no acute process. Patient has frequent falls this is not new or different. We will get her home with meds for pain. We discussed reasons to return. Radiography Diagnostic Testing: Clinical Impression(s) from Imaging Studies Brain CT 03/15/22 17:16 IMPRESSION: Negative head/brain CT without intravenous contrast. Electronically Signed: Cooper Van MD at 17:51 EDT , Cervical Spine CT 03/15/22 17:16 IMPRESSION: No evidence of acute cervical spinal fracture or spondylolisthesis. Electronically Signed: Cooper Van MD at 17:53 EDT , Shoulder X-Ray 03/15/22 18:00 IMPRESSION: No acute or healing fracture or malalignment. Electronically Signed: Cooper Van MD at 18:52 EDT , Discharge Plan Triage Chief Complaint: Fall ED Provider: Sravan Acevedo Dx/Rx/DC Orders Clinical Impression: Falls frequently, Closed head injury, Cervical strain, Contusion of left shoulder Instructions: ED Contusion, Upper Extremity Prescriptions: New oxycodone-acetaminophen [Percocet] 5-325 mg tablet 1 tab PO Q6H PRN (Reason: pain) 2 Days Qty: 6 0RF No Action albuterol sulfate [ProAir HFA] 90 mcg/actuation HFA aerosol inhaler 2 puff INHALATION Q4H PRN (Reason: shortness of breath or wheezing) venlafaxine 75 mg capsule,extended release 24hr 75 mg PO DAILY Ensure Compact Liquid 118 ml PO DAILY Label Comments: 2 ENSURE'S DAILY carbidopa-levodopa 50-200 mg tablet extended release See Rx Instructions .ROUTE .COMPLEX Qty: 90 3RF Rx Instructions: Take 1 tablet PO daily for one week then 1 BID for one week then 1 TID thereafter. levetiracetam [Keppra] 500 mg tablet 500 mg PO BID Qty: 30 3RF ferrous sulfate 325 mg (65 mg iron) tablet,delayed release (DR/EC) 325 mg PO DAILY Dulera 100-5 mcg/actuation Hfa Aerosol Inhaler 2 puff INHALATION Q12H PRN (Reason: sob) venlafaxine 37.5 mg capsule,extended release 24hr 37.5 mg PO DAILY Label Comments: TAKE 1 CAPSULE BY MOUTH ONCE DAILY WITH 75MG CAPSULE . APPOINTMENT REQUIRED FOR FUTURE REFILLS Rx Instructions: Take daily with 75 mg dose clonazepam 1 mg tablet 1 mg PO BID atorvastatin 80 mg tablet 80 mg PO QHS Label Comments: TAKE 1 TABLET BY MOUTH ONCE DAILY mirtazapine 7.5 mg tablet 7.5 mg PO QHS Label Comments: TAKE 1 TABLET BY MOUTH AT BEDTIME metoprolol succinate 100 mg tablet extended release 24 hr 100 mg PO DAILY Qty: 0 0RF Label Comments: TAKE (1) TABLET BY MOUTH ONCE DAILY Rx Instructions: Hold for heart less than 60 or systolic blood pressure less than 100 mmHg. furosemide [Lasix] 20 mg tablet 20 mg PO DAILY PRN (Reason: leg swelling) Qty: 30 0RF Rx Instructions: Do not take if systolic blood pressure is less than 110 mmHg spironolactone 50 mg tablet 50 mg PO DAILY Qty: 0 0RF Label Comments: TAKE 1 TABLET BY MOUTH ONCE DAILY. Rx Instructions: Hold if serum potassium more than 4.5 tizanidine 4 mg tablet 4 mg PO Q8H PRN (Reason: muscle spasticity) Qty: 15 0RF losartan 25 mg tablet 100 mg PO DAILY Rx Instructions: Hold for SBP less than 110 mmHg pantoprazole 20 mg Tablet,Delayed Release (Dr/Ec) 20 mg PO BID 30 Days Qty: 60 0RF Eliquis 5 mg tablet 5 mg PO BID Qty: 60 0RF ascorbic acid (vitamin C) 500 mg tablet 500 mg PO BID Qty: 60 2RF Primary Care Provider: Ysabel Ruffin Referrals: Ysabel Ruffin MD [Primary Care Provider] - As Needed Disposition Disposition: Home, Self Care
[2022-03-15] MEDS: oxyCODONE 5 MG Tablet PO (17:41)
--- NOTE | 2022-03-15 18:00 | RAD_ITS ---
EXAM: XR LEFT SHOULDER COMPLETE, 2 OR MORE VIEWS CLINICAL INDICATION: trauma TECHNIQUE: Two or more views of the left shoulder. This report was created using [email or web address] report generation technology. COMPARISON: None. FINDINGS: BONES/JOINTS: Mild degenerative changes of the acromioclavicular joint. No acute fracture. No subluxation. Normal alignment. No sclerotic or destructive changes observed. SOFT TISSUES: Unremarkable. No soft tissue swelling or gas. No radiopaque foreign body. RAD/Shoulder min 2 Views IMPRESSION: No acute or healing fracture or malalignment. Electronically Signed: Cooper Van MD at 18:52 EDT ,
== END 2022-03-15 19:42 | disposition home or self-care (01) ==
PROVIDERS: Emergency Provider Emergency Medicine; PCP Internal Medicine; Visit Provider Emergency Medicine
DX: S16.1XXA Strain of muscle, fascia and tendon at neck level, initial encounter (principal); G20 Parkinson's disease; J44.9 Chronic obstructive pulmonary disease, unspecified; I11.0 Hypertensive heart disease with heart failure; I50.9 Heart failure, unspecified; E66.01 Morbid (severe) obesity due to excess calories; G40.909 Epilepsy, unspecified, not intractable, without status epilepticus; W19.XXXA Unspecified fall, initial encounter; S40.012A Contusion of left shoulder, initial encounter; S09.90XA Unspecified injury of head, initial encounter; R29.6 Repeated falls; S49.92XA Unspecified injury of left shoulder and upper arm, initial encounter; I25.10 Atherosclerotic heart disease of native coronary artery without angina pectoris; E78.5 Hyperlipidemia, unspecified; G47.33 Obstructive sleep apnea (adult) (pediatric); Z79.01 Long term (current) use of anticoagulants; Z79.899 Other long term (current) drug therapy; I25.2 Old myocardial infarction; Z86.73 Personal history of transient ischemic attack (TIA), and cerebral infarction without residual deficits; Z87.891 Personal history of nicotine dependence
CPT/HCPCS: 70450; 72125; 73030; 99282

== ENCOUNTER 2022-03-19 14:27 | Emergency (ER) | payer MEDICAID, SELFPAY ==
[2022-03-19 14:28] VITALS: BP 117/65; PULSE 65; RESP 18; TEMP 37.1; O2SAT 96; BMI 43.2
--- NOTE | 2022-03-19 14:52 | CT_ITS ---
STUDY: CT BRAIN WITHOUT CONTRAST REASON FOR EXAM: Female, 56 years old. head injury on anticoagulation RADIATION DOSAGE (If Supplied By Facility): CTDIvol = ( 44.99 ) mGy, DLP = ( 812.98 ) mGycm TECHNIQUE: Transaxial CT imaging of the brain was performed without administration of intravenous contrast material. Individualized dose optimization techniques were used for this CT. COMPARISON: 03/15/2022 FINDINGS: Normal soft tissue structures. Normal calvarium. Normal size ventricles and extra-axial spaces for the patient''s age. Normal white matter tracts of the cerebral hemispheres. Normal basal ganglia and thalami. Normal brainstem. Normal cerebellum. There is no intracranial hemorrhage. There are no findings of an acute ischemic infarction. Normal visualized paranasal sinuses. CT/Brain/Head without Contrast IMPRESSION: Normal unenhanced CT scan of the brain. Electronically Signed: Javier Adams MD at 15:26 EDT ,
--- NOTE | 2022-03-19 14:52 | CT_ITS ---
STUDY: CT CERVICAL SPINE WITHOUT CONTRAST REASON FOR EXAM: Female, 56 years old. neck pain RADIATION DOSAGE (If Supplied By Facility): CTDIvol = ( 24.43 ) mGy, DLP = ( 517.03 ) mGycm TECHNIQUE: High resolution transaxial imaging was performed without contrast material. Sagittal and coronal images were reconstructed. Individualized dose optimization techniques were used for this CT. COMPARISON: 03/15/2022 FINDINGS: Normal craniovertebral junction. Normal anterior atlantoaxial articulation. Normal odontoid process. Normal cervical lordosis. Posterior fusion defect of the C1 vertebra which is a normal variant. 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 This produces severe left neural foraminal stenosis. C2-3: Normal endplates. Normal disc height and morphology. Normal central canal and intervertebral neuroforamina. C3-4: Deformity as described above with severe left neural foraminal stenosis. No central spinal stenosis. C4-5: Normal endplates. Normal disc height and morphology. Normal central canal and intervertebral neuroforamina. C5-6: Normal endplates. Normal disc height and morphology. Normal central canal and intervertebral neuroforamina. C6-7: Normal endplates. Normal disc height and morphology. Normal central canal and intervertebral neuroforamina. C7-T1: Normal endplates. Normal disc height and morphology. Normal central canal and intervertebral neuroforamina. Normal visualized soft tissue structures. CT/Spine Cervical without Contras IMPRESSION: No change from 03/15/2022. Electronically Signed: Javier Adams MD at 15:33 EDT ,
--- NOTE | 2022-03-19 14:53 | EDS_ITS ---
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 She states that she was getting up out of her wheelchair to let her dog out. She stood up and walked to get the leash/lead, when she fell backwards, striking the back of her head. She now complains of head pain along with neck pain. There was no reported loss of consciousness. She arrives via EMS. Of note, she states she has past medical history of DVTs and pulmonary emboli for which she takes Eliquis as a blood thinner. She denies other injury. She states she has pain in her head. She did vomit once without any blood in her emesis. [facility] Medical History Abnormal cardiac enzyme level Acute and chronic respiratory failure Acute respiratory failure with hypoxia and hypercapnia LEIGH ANN (acute kidney injury) Anemia Anxiety and depression Back pain Bilateral peripheral pulmonary emboli BiPAP (biphasic positive airway pressure) dependence Breast infection Cancer Cardiology follow-up encounter Cardiopulmonary arrest with successful resuscitation Chest pain Chronic anemia Chronic narcotic dependence Compression fracture of T5 vertebra Compression fracture of T6 vertebra Concussion Congestive heart failure COPD (chronic obstructive pulmonary disease) COPD exacerbation Coronary artery disease CPAP (continuous positive airway pressure) dependence Debility Depression Diastolic dysfunction DVT (deep vein thrombosis) in DVT (deep venous thrombosis) Essential hypertension Falls frequently Former smoker FTT (failure to thrive) in adult GERD (gastroesophageal reflux disease) H/O long-term (current) use of anticoagulants HLD (hyperlipidemia) Hx of cardiovascular stress test Hx of echocardiogram Hypothyroidism Morbid obesity MSSA (methicillin susceptible Staphylococcus aureus) pneumonia Myocardial infarct On home oxygen therapy STEPHANIE (obstructive sleep apnea) Pulmonary embolism Restrictive lung disease Right rib fracture Seizure disorder Seizures Sleep apnea Syncope and collapse TIA (transient ischemic attack) Wears dentures Wears glasses Home Medications albuterol sulfate 90 mcg/actuation aerosol inhaler (ProAir HFA) 2 puff inhalation Q4H PRN shortness of breath or wheezing 08/01/17 [History Last Taken 03/03/18] venlafaxine 75 mg capsule,extended release 24 hr 75 mg PO DAILY mental health 03/02/21 [History Last Taken 08/25/21] mometasone-formoterol HFA 100 mcg-5 mcg/actuation aerosol inhaler (Dulera) 2 puff inhalation Q12H PRN sob 03/15/21 [History Last Taken Unknown] venlafaxine 37.5 mg capsule,extended release 24 hr 37.5 mg PO DAILY Depression 04/25/21 [History Last Taken 08/25/21] clonazepam 1 mg tablet 1 mg PO BID anxiety 05/09/21 [History Last Taken 08/25/21] food supplemt, lactose-reduced (Ensure Compact oral liquid) 118 ml PO DAILY supplement 05/24/21 [History Last Taken 08/25/21] atorvastatin 80 mg tablet 80 mg PO QHS cholesterol 08/26/21 [History Last Taken 08/25/21] mirtazapine 7.5 mg tablet 7.5 mg PO QHS sleep 08/26/21 [History Last Taken Unknown] furosemide 20 mg tablet (Lasix) 20 mg PO DAILY PRN leg swelling #30 tabs 08/31/21 [Rx Last Taken 08/25/21] metoprolol succinate 100 mg tablet,extended release 24 hr 100 mg PO DAILY blood pressure #0 tabs 08/31/21 [Rx Last Taken 08/25/21] spironolactone 50 mg tablet 50 mg PO DAILY diuretic #0 tabs 08/31/21 [Rx Last Taken 08/25/21] tizanidine 4 mg tablet 4 mg PO Q8H PRN muscle spasticity #15 tabs 09/22/21 [Rx Last Taken Unknown] losartan 25 mg tablet 100 mg PO DAILY blood pressure 11/03/21 [History Last Taken Unknown] carbidopa ER 50 mg-levodopa 200 mg tablet,extended release See Rx Instructions .Route .COMPLEX #90 tabs 12/12/21 [Rx Last Taken Unknown] levetiracetam 500 mg tablet (Keppra) 500 mg PO BID seizures #30 tabs 12/12/21 [Rx Last Taken Unknown] apixaban 5 mg tablet (Eliquis) 5 mg PO BID #60 tabs 01/19/22 [Rx Last Taken Unknown] ascorbic acid (vitamin C) 500 mg tablet 500 mg PO BID #60 tabs 01/19/22 [Rx Last Taken Unknown] pantoprazole 20 mg tablet,delayed release 20 mg PO BID 30 days #60 tabs 01/19/22 [Rx Last Taken Unknown] ferrous sulfate 325 mg (65 mg iron) tablet,delayed release 325 mg PO DAILY 03/15/22 [History Last Taken Unknown] oxycodone-acetaminophen 5 mg-325 mg tablet (Percocet) 1 tab PO Q6H PRN pain 2 days #6 tabs 03/15/22 [Rx Last Taken Unknown] Allergy/AdvReac Type Severity Reaction Status Date / Time aspirin Allergy Hives Verified 03/19/22 14:31 dicyclomine Allergy Itching Verified 03/19/22 14:31 ibuprofen Allergy Hives Verified 03/19/22 14:31 ketorolac tromethamine Allergy Angioedema Verified 03/19/22 14:31 [From Toradol] meperidine HCl [From Demerol] Allergy seizures Verified 03/19/22 14:31 nitroglycerin Allergy Angioedema Verified 03/19/22 14:31 nut - unspecified Allergy Hives Verified 03/19/22 14:31 Penicillins [PCN] Allergy Hives Verified 03/19/22 14:31 tramadol HCl [From Ultram] Allergy Angioedema Verified 03/19/22 14:31 Family History Brother Myocardial infarction Asthma Mental disorder Psychiatric care Suicide attempt Father Colon cancer Brother Mental disorder Aunt Parkinson disease Sister Breast cancer Cervical cancer Ovarian cancer Sister Cervical cancer Ovarian cancer Mother Cancer leukemia History of blood clots Hypertension Surgical History History of cardiac catheterization History of cholecystectomy History of esophagogastroduodenoscopy (EGD) History of hysterectomy History of left breast biopsy History of left heart catheterization (LHC) (~04/22/21) History of lumpectomy of left breast Hx of appendectomy S/P lumpectomy, left breast Social History household members: none current occupational status: unemployed Smoking Status: Former smoker quit date: 01/21/16 pack-years: 32 Electronic Cigarette Use: not used second hand exposure: Yes alcohol intake: never substance use type: does not use do you feel safe at home: No ROS ROS ED ROS Narrative Constitutional: No fever, no chills. HEENT: No sore throat. No neck pain. No loss of vision. No rhinorrhea. Neck pain worse with movement. Cardiovascular: No chest pain. No palpitations. No pedal edema. Respiratory: No cough, no shortness of breath. Abdominal: No abdominal pain. No nausea. No vomiting. Genitourinary: No dysuria. No hematuria. Musculoskeletal: No myalgias. No arthralgias. Neurologic: Positive headaches. Occipital pain where had struck cement floor. No dizziness. No lightheadedness. Skin: No rash. No change in color. Psychiatric: No depression. No anxiety. EXAM Physical Exam Narrative Exam Narrative: Afebrile. Vital signs noted. HEENT: Normocephalic. Atraumatic. PERRL, EOMI. Neck soft and supple. No point tenderness or step off. Mild tenderness to palpation occiput. No active bleeding. Cardiovascular: Regular rate and rhythm. No murmurs, rubs, or gallops appreciated. Respiratory: No tachypnea. Lungs clear to auscultation bilaterally. Gastrointestinal: Abdomen soft, nontender, with normoactive bowel sounds. No rebound or guarding. Neurological: Awake. Alert. Nonfocal, nonlateralizing. Skin: No rash. Normal color. No pallor. Musculoskeletal: No pedal edema. Full range of motion extremities. Const Vital Signs: 03/19/22 14:28 03/19/22 14:31 Temperature 98.7 F Temperature Source Oral Pulse Rate 65 Respiratory Rate 18 Respiratory Effort Normal Non-Labored Blood Pressure 117/65 Blood Pressure Mean 82 Pulse Ox 96 Oxygen Delivery Method Nasal Cannula Nasal Cannula Oxygen Flow Rate (L/min) 3 MDM MDM MDM Narrative Medical decision making narrative: CT obtained of the head and C-spine to look for intracranial hemorrhage given her head injury on anticoagulation. CT of the brain and C-spine show no acute process, no fracture or hemorrhage. Of note, I reviewed her EMR and she was here 4 days ago for a fall and her cervical spine CT shows no significant change from that. She was administered ondansetron intravenously for her nausea and her reported vomiting. She was administered 2 mg of morphine for analgesia. I feel she can be discharged safely home with follow-up to her primary care provider. Disposition is discharged home in stable condition. Radiography Diagnostic Testing: Clinical Impression(s) from Imaging Studies Brain CT 03/19/22 14:52 IMPRESSION: Normal unenhanced CT scan of the brain. Electronically Signed: Javier Adams MD at 15:26 EDT , Cervical Spine CT 03/19/22 14:52 IMPRESSION: No change from 03/15/2022. Electronically Signed: Javier Adams MD at 15:33 EDT , Discharge Plan Triage Chief Complaint: Fall ED Provider: Callum Knutson Dx/Rx/DC Orders Clinical Impression: Falls frequently, Closed head injury, Neck strain Instructions: ED Head Injury (Adult), ED Neck Sprain or Strain, ED Fall Prevention Prescriptions: No Action albuterol sulfate [ProAir HFA] 90 mcg/actuation HFA aerosol inhaler 2 puff INHALATION Q4H PRN (Reason: shortness of breath or wheezing) venlafaxine 75 mg capsule,extended release 24hr 75 mg PO DAILY Ensure Compact Liquid 118 ml PO DAILY Label Comments: 2 ENSURE'S DAILY carbidopa-levodopa 50-200 mg tablet extended release See Rx Instructions .ROUTE .COMPLEX Qty: 90 3RF Rx Instructions: Take 1 tablet PO daily for one week then 1 BID for one week then 1 TID thereafter. levetiracetam [Keppra] 500 mg tablet 500 mg PO BID Qty: 30 3RF ferrous sulfate 325 mg (65 mg iron) tablet,delayed release (DR/EC) 325 mg PO DAILY Dulera 100-5 mcg/actuation Hfa Aerosol Inhaler 2 puff INHALATION Q12H PRN (Reason: sob) venlafaxine 37.5 mg capsule,extended release 24hr 37.5 mg PO DAILY Label Comments: TAKE 1 CAPSULE BY MOUTH ONCE DAILY WITH 75MG CAPSULE . APPOINTMENT REQUIRED FOR FUTURE REFILLS Rx Instructions: Take daily with 75 mg dose clonazepam 1 mg tablet 1 mg PO BID atorvastatin 80 mg tablet 80 mg PO QHS Label Comments: TAKE 1 TABLET BY MOUTH ONCE DAILY mirtazapine 7.5 mg tablet 7.5 mg PO QHS Label Comments: TAKE 1 TABLET BY MOUTH AT BEDTIME metoprolol succinate 100 mg tablet extended release 24 hr 100 mg PO DAILY Qty: 0 0RF Label Comments: TAKE (1) TABLET BY MOUTH ONCE DAILY Rx Instructions: Hold for heart less than 60 or systolic blood pressure less than 100 mmHg. furosemide [Lasix] 20 mg tablet 20 mg PO DAILY PRN (Reason: leg swelling) Qty: 30 0RF Rx Instructions: Do not take if systolic blood pressure is less than 110 mmHg spironolactone 50 mg tablet 50 mg PO DAILY Qty: 0 0RF Label Comments: TAKE 1 TABLET BY MOUTH ONCE DAILY. Rx Instructions: Hold if serum potassium more than 4.5 tizanidine 4 mg tablet 4 mg PO Q8H PRN (Reason: muscle spasticity) Qty: 15 0RF losartan 25 mg tablet 100 mg PO DAILY Rx Instructions: Hold for SBP less than 110 mmHg pantoprazole 20 mg Tablet,Delayed Release (Dr/Ec) 20 mg PO BID 30 Days Qty: 60 0RF Eliquis 5 mg tablet 5 mg PO BID Qty: 60 0RF ascorbic acid (vitamin C) 500 mg tablet 500 mg PO BID Qty: 60 2RF oxycodone-acetaminophen [Percocet] 5-325 mg tablet 1 tab PO Q6H PRN (Reason: pain) 2 Days Qty: 6 0RF Primary Care Provider: Ysabel Ruffin Referrals: Ysabel Ruffin MD [Primary Care Provider] - 3-5 Days Disposition Disposition: Home, Self Care
[2022-03-19] MEDS: Morphine 2 MG/ML Syringe IV (15:56)
[2022-03-19] MEDS: Ondansetron 4 MG/2 ML Vial IV (15:56)
[2022-03-19 16:44] VITALS: O2SAT 98
== END 2022-03-19 17:15 | disposition home or self-care (01) ==
PROVIDERS: Emergency Provider Emergency Medicine; PCP Internal Medicine; Visit Provider Emergency Medicine
DX: S09.90XA Unspecified injury of head, initial encounter (principal); G20 Parkinson's disease; J44.9 Chronic obstructive pulmonary disease, unspecified; I11.0 Hypertensive heart disease with heart failure; I50.9 Heart failure, unspecified; G40.909 Epilepsy, unspecified, not intractable, without status epilepticus; S16.1XXA Strain of muscle, fascia and tendon at neck level, initial encounter; R11.2 Nausea with vomiting, unspecified; I25.10 Atherosclerotic heart disease of native coronary artery without angina pectoris; E78.5 Hyperlipidemia, unspecified; Z86.711 Personal history of pulmonary embolism; W01.10XA Fall on same level from slipping, tripping and stumbling with subsequent striking against unspecified object, initial encounter; Z86.718 Personal history of other venous thrombosis and embolism; Z79.01 Long term (current) use of anticoagulants; E03.9 Hypothyroidism, unspecified; K21.9 Gastro-esophageal reflux disease without esophagitis; G47.33 Obstructive sleep apnea (adult) (pediatric); I25.2 Old myocardial infarction; Z87.891 Personal history of nicotine dependence; Z91.81 History of falling
CPT/HCPCS: 70450; 72125; 96374; 96375; 99284; J2405

== ENCOUNTER 2022-04-01 12:45 | Emergency (ER) | payer MEDICAID, SELFPAY ==
[2022-04-01 12:47] VITALS: BP 132/121; PULSE 106; RESP 17; TEMP 36.8; O2SAT 95; BMI 40.6
--- NOTE | 2022-04-01 13:17 | EKG12_ITS ---
Test Reason : CP Blood Pressure : / mmHG Vent. Rate : 085 BPM Atrial Rate : 085 BPM P-R Int : 124 ms QRS Dur : 084 ms QT Int : 410 ms P-R-T Axes : 011 -06 019 degrees QTc Int : 487 ms Normal sinus rhythm Inferior infarct , age undetermined Abnormal ECG Confirmed by TOBY BATISTA, CHARLENE ([id number]), editorial clerk SAUMYA PERAZA ([id number]) on 04/03/2022 11:14:42 AM Referred By: PL Confirmed By:CHARLENE ULIS MD
--- NOTE | 2022-04-01 13:17 | CT_ITS ---
STUDY: CT BRAIN WITHOUT CONTRAST REASON FOR EXAM: Female, 56 years old. Trauma RADIATION DOSAGE (If Supplied By Facility): CTDIvol = ( 44.99 ) mGy, DLP = ( 1043.86 ) mGycm TECHNIQUE: Transaxial CT imaging of the brain was performed without administration of intravenous contrast material. Individualized dose optimization techniques were used for this CT. COMPARISON: 03/19/2022 FINDINGS: Normal soft tissue structures. Normal calvarium. Normal size ventricles and extra-axial spaces for the patient''s age. Normal white matter tracts of the cerebral hemispheres. Normal basal ganglia and thalami. Normal brainstem. Normal cerebellum. There is no intracranial hemorrhage. There are no findings of an acute ischemic infarction. Normal visualized paranasal sinuses. CT/Brain/Head without Contrast IMPRESSION: No acute intracranial process. Electronically Signed: Carli Dyer MD at 14:30 EDT ,
--- NOTE | 2022-04-01 13:19 | EDS_ITS ---
HPI History of Present Illness Chief Complaint: Chest Pain Informant: patient Narrative Narrative: Patient comes in after a fall. She was trying to get into her chair. She lost balance fell and did hit her head on the corner of a coffee table. When she hit she had both pain in her central chest as well as some head pain. She states she had a little bit of chest pain yesterday 2. No nausea vomiting or change in her baseline shortness of breath. No diaphoresis. She also has been missing many of her medicines for the last 5 days. These evidently get mailed to her and are delayed. She does have prescriptions for missing medicines at [facility] but she just needs to contact her sister to go get them. Patient is also on 3 L of oxygen routinely. 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 She evidently had an AL where she was hypoxic for a period of time and that exacerbated her myoclonic activity. She has had problems with falls ever since. [facility] Medical History Abnormal cardiac enzyme level Acute and chronic respiratory failure Acute respiratory failure with hypoxia and hypercapnia LEIGH ANN (acute kidney injury) Anemia Anxiety and depression Back pain Bilateral peripheral pulmonary emboli BiPAP (biphasic positive airway pressure) dependence Breast infection Cancer Cardiology follow-up encounter Cardiopulmonary arrest with successful resuscitation Chest pain Chronic anemia Chronic narcotic dependence Compression fracture of T5 vertebra Compression fracture of T6 vertebra Concussion Congestive heart failure COPD (chronic obstructive pulmonary disease) COPD exacerbation Coronary artery disease CPAP (continuous positive airway pressure) dependence Debility Depression Diastolic dysfunction DVT (deep vein thrombosis) in DVT (deep venous thrombosis) Essential hypertension Falls frequently Former smoker FTT (failure to thrive) in adult GERD (gastroesophageal reflux disease) H/O long-term (current) use of anticoagulants HLD (hyperlipidemia) Hx of cardiovascular stress test Hx of echocardiogram Hypothyroidism Morbid obesity MSSA (methicillin susceptible Staphylococcus aureus) pneumonia Myocardial infarct On home oxygen therapy STEPHANIE (obstructive sleep apnea) Pulmonary embolism Restrictive lung disease Right rib fracture Seizure disorder Seizures Sleep apnea Syncope and collapse TIA (transient ischemic attack) Wears dentures Wears glasses Home Medications albuterol sulfate 90 mcg/actuation aerosol inhaler (ProAir HFA) 2 puff inhalation Q4H PRN shortness of breath or wheezing 08/01/17 [History Last Taken 03/03/18] venlafaxine 75 mg capsule,extended release 24 hr 75 mg PO DAILY mental health 03/02/21 [History Last Taken 08/25/21] mometasone-formoterol HFA 100 mcg-5 mcg/actuation aerosol inhaler (Dulera) 2 puff inhalation Q12H PRN sob 03/15/21 [History Last Taken Unknown] venlafaxine 37.5 mg capsule,extended release 24 hr 37.5 mg PO DAILY Depression 04/25/21 [History Last Taken 08/25/21] clonazepam 1 mg tablet 1 mg PO BID anxiety 05/09/21 [History Last Taken 08/25/21] food supplemt, lactose-reduced (Ensure Compact oral liquid) 118 ml PO DAILY supplement 05/24/21 [History Last Taken 08/25/21] atorvastatin 80 mg tablet 80 mg PO QHS cholesterol 08/26/21 [History Last Taken 08/25/21] mirtazapine 7.5 mg tablet 7.5 mg PO QHS sleep 08/26/21 [History Last Taken Unknown] spironolactone 50 mg tablet 50 mg PO DAILY diuretic #0 tabs 08/31/21 [Rx Last Taken 08/25/21] tizanidine 4 mg tablet 4 mg PO Q8H PRN muscle spasticity #15 tabs 09/22/21 [Rx Last Taken Unknown] carbidopa ER 50 mg-levodopa 200 mg tablet,extended release See Rx Instructions .Route .COMPLEX #90 tabs 12/12/21 [Rx Last Taken Unknown] levetiracetam 500 mg tablet (Keppra) 500 mg PO BID seizures #30 tabs 12/12/21 [Rx Last Taken Unknown] apixaban 5 mg tablet (Eliquis) 5 mg PO BID #60 tabs 01/19/22 [Rx Last Taken Unknown] ascorbic acid (vitamin C) 500 mg tablet 500 mg PO BID #60 tabs 01/19/22 [Rx Last Taken Unknown] pantoprazole 20 mg tablet,delayed release 20 mg PO BID 30 days #60 tabs 01/19/22 [Rx Last Taken Unknown] ferrous sulfate 325 mg (65 mg iron) tablet,delayed release 325 mg PO DAILY 03/15/22 [History Last Taken Unknown] oxycodone-acetaminophen 5 mg-325 mg tablet (Percocet) 1 tab PO Q6H PRN pain 2 days #6 tabs 03/15/22 [Rx Last Taken Unknown] furosemide 20 mg tablet (Lasix) 20 mg PO DAILY PRN leg swelling #10 tabs 03/31/22 [Rx Last Taken Unknown] losartan 25 mg tablet 100 mg PO DAILY blood pressure #14 tabs 03/31/22 [Rx Last Taken Unknown] metoprolol succinate 100 mg tablet,extended release 24 hr 100 mg PO DAILY blood pressure #14 tabs 03/31/22 [Rx Last Taken Unknown] oxycodone-acetaminophen 5 mg-325 mg tablet (Percocet) 1 tab PO Q6H PRN pain 3 days #10 tabs 04/01/22 [Rx Last Taken Unknown] Allergy/AdvReac Type Severity Reaction Status Date / Time aspirin Allergy Hives Verified 03/19/22 14:31 dicyclomine Allergy Itching Verified 03/19/22 14:31 ibuprofen Allergy Hives Verified 03/19/22 14:31 ketorolac tromethamine Allergy Angioedema Verified 03/19/22 14:31 [From Toradol] meperidine HCl [From Demerol] Allergy seizures Verified 03/19/22 14:31 nitroglycerin Allergy Angioedema Verified 03/19/22 14:31 nut - unspecified Allergy Hives Verified 03/19/22 14:31 Penicillins [PCN] Allergy Hives Verified 03/19/22 14:31 tramadol HCl [From Ultram] Allergy Angioedema Verified 03/19/22 14:31 Family History Brother Myocardial infarction Asthma Mental disorder Psychiatric care Suicide attempt Father Colon cancer Brother Mental disorder Aunt Parkinson disease Sister Breast cancer Cervical cancer Ovarian cancer Sister Cervical cancer Ovarian cancer Mother Cancer leukemia History of blood clots Hypertension Surgical History History of cardiac catheterization History of cholecystectomy History of esophagogastroduodenoscopy (EGD) History of hysterectomy History of left breast biopsy History of left heart catheterization (LHC) (~04/22/21) History of lumpectomy of left breast Hx of appendectomy S/P lumpectomy, left breast Social History household members: none current occupational status: unemployed Smoking Status: Former smoker quit date: 01/21/16 pack-years: 32 Electronic Cigarette Use: not used second hand exposure: Yes alcohol intake: never substance use type: does not use do you feel safe at home: No ROS ROS ED Constitutional Constitutional ED: Denies chills or fever(s) Eyes Eyes: Denies change in vision ENT ENT ED: Denies rhinorrhea or sore throat Cardiovascular Cardiovascular: Reports chest pain; Denies palpitations or racing heartbeat Respiratory/Chest Respiratory/Chest: Denies cough or dyspnea Gastrointestinal Gastrointestinal: Denies abdominal pain or vomiting Genitourinary Genitourinary ED: Denies hematuria Musculoskeletal Musculoskeletal: Denies back pain or neck pain Integumentary Denies rash Neurologic Neurologic: Reports headache(s); Denies paresthesias or weakness Endocrine Endocrinology: Denies polydipsia or polyuria Hematologic/Lymphatic Hematologic/Lymphatic: Reports easy bleeding and easy bruising Allergic/Immunologic Allergic/Immunologic ED: Denies urticaria EXAM Physical Exam Const Vital Signs: 04/01/22 12:47 04/01/22 12:53 04/01/22 13:30 Temperature 98.3 F Temperature Source Oral Pulse Rate 106 H Respiratory Rate 17 Respiratory Effort Normal Non-Labored Blood Pressure 132/121 H Blood Pressure Mean 124 Pulse Ox 95 Oxygen Delivery Method Room Air Room Air Oxygen Flow Rate (L/min) 04/01/22 14:58 04/01/22 16:29 Temperature Temperature Source Pulse Rate 83 80 Respiratory Rate 16 17 Respiratory Effort Blood Pressure 132/83 H 124/85 H Blood Pressure Mean 99 98 Pulse Ox 99 Oxygen Delivery Method Nasal Cannula Oxygen Flow Rate (L/min) 2 Positive well nourished, well developed and obese Constitutional Narrative: Patient awake alert appropriate. I do not see signs of trauma at this time on her head. This may develop over time. General Appearance ED: well developed and NAD; Negative for pallor Nutritional Appearance: obese HEENT Reports moist mucous membranes Eyes EOMs intact bilaterally Neck no lymphadenopathy Chest Wall inspection of chest normal Chest Narrative: She does have some mild tenderness to the anterior sternal area where she is hurting. But there is no contusion or abrasion. Resp normal respiratory effort and clear to auscultation bilaterally Resp Narrative: Breathing is easy and unlabored. Her saturations are about 91-94% on room air but she is supposed to be on 3 L all the time. Cardio regular rate and regular rhythm GI normal to inspection, nondistended, normoactive bowel sounds and non-tender Palpation: soft Neuro oriented x3 Neuro Narrative: Patient has diffuse myoclonic activity. She did take her carbidopa levodopa this morning. Sensorium / Orientation: alert Psych mental status grossly normal Skin no rashes or lesions noted and no wounds General Skin Exam: Negative for jaundice or pallor MDM MDM MDM Narrative Medical decision making narrative: Patient CBC shows anemia but this is baseline. White count is normal. Platelets are normal. Electrolytes show no acute process. Troponin is negative. Repeat troponin is negative. CT shows no acute process. Chest x-ray is negative. I had a talk with this patient about how she is doing. She does live alone at home. She has problems with mobility. But she wants to stay at home. She has been a person coming out Sunday to do further evaluations to see what assistance she can get at home. She does not want to be admitted at this time. She would like to stay at home as long as she can. I think the patient does have a fall. She does have pain. She is currently not on any pain meds. I will give her a few pain pills. I did do an online prescribing report. She has used oxycodone before. She gets intermittent scripts. But this is a complex patient with some challenging medical issues also. We discussed reasons to return. We are going to help her call her sister to see if her sister can get the rest of her medicines today. They are evidently at the pharmacy. Lab Data Attestation: I reviewed the patient's lab results. Labs: Laboratory Results - last 24 hr 04/01/22 04/01/22 04/01/22 12:53 12:53 15:45 WBC 8.5 RBC 3.17 L Hgb 8.3 L Hct 26.8 L MCV 84.5 MCH 26.2 L MCHC 31.0 L RDW Std Deviation 49.7 H RDW Coeff of Immanuel 15.9 H Plt Count 373 MPV 10.9 Immature Gran % (Auto) 0.200 Neut % (Auto) 66.3 Lymph % (Auto) 25.1 Walker % (Auto) 6.6 Eos % (Auto) 1.3 Baso % (Auto) 0.5 Absolute Neuts (auto) 5.7 Absolute Lymphs (auto) 2.14 Nucleated RBC % 0 Sodium 138 Potassium 3.9 Chloride 106 Carbon Dioxide 23.0 Anion Gap 9 BUN 19 H Creatinine 1.03 H Estim Creat Clear Calc 57.09 Est GFR (MDRD) Af Amer 71 Est GFR (MDRD) Non-Af 59 L BUN/Creatinine Ratio 18.4 Glucose 108 H Calcium 9.2 Magnesium 2.1 Troponin I High Sens 7 7 Radiography Diagnostic Testing: Clinical Impression(s) from Imaging Studies Brain CT 04/01/22 13:17 IMPRESSION: No acute intracranial process. Electronically Signed: Carli Dyer MD at 14:30 EDT , Chest X-Ray 04/01/22 13:45 IMPRESSION: Normal x-ray examination of the chest. Electronically Signed: Neto Eduardo MD at 13:59 EDT , EKG Initial EKG: Comments: EKG done today for chest pain after trauma but with a history of heart disease. EKG read by me shows a normal sinus rhythm with overall rate of 85. No ectopy. Work no acute ST elevation or depression. T wave inversion on lead III which is not new. CT interval, QRS duration are normal. QTc is mildly longer at 487 ms Discharge Plan Triage Chief Complaint: Chest Pain ED Provider: Sravan Acevedo Dx/Rx/DC Orders Clinical Impression: Falls frequently, Closed head injury, Chest wall contusion Instructions: ED FALL-from [id number] Prescriptions: New oxycodone-acetaminophen [Percocet] 5-325 mg tablet 1 tab PO Q6H PRN (Reason: pain) 3 Days Qty: 10 0RF No Action albuterol sulfate [ProAir HFA] 90 mcg/actuation HFA aerosol inhaler 2 puff INHALATION Q4H PRN (Reason: shortness of breath or wheezing) venlafaxine 75 mg capsule,extended release 24hr 75 mg PO DAILY Ensure Compact Liquid 118 ml PO DAILY Label Comments: 2 ENSURE'S DAILY carbidopa-levodopa 50-200 mg tablet extended release See Rx Instructions .ROUTE .COMPLEX Qty: 90 3RF Rx Instructions: Take 1 tablet PO daily for one week then 1 BID for one week then 1 TID thereafter. levetiracetam [Keppra] 500 mg tablet 500 mg PO BID Qty: 30 3RF ferrous sulfate 325 mg (65 mg iron) tablet,delayed release (DR/EC) 325 mg PO DAILY Dulera 100-5 mcg/actuation Hfa Aerosol Inhaler 2 puff INHALATION Q12H PRN (Reason: sob) venlafaxine 37.5 mg capsule,extended release 24hr 37.5 mg PO DAILY Label Comments: TAKE 1 CAPSULE BY MOUTH ONCE DAILY WITH 75MG CAPSULE . APPOINTMENT REQUIRED FOR FUTURE REFILLS Rx Instructions: Take daily with 75 mg dose clonazepam 1 mg tablet 1 mg PO BID atorvastatin 80 mg tablet 80 mg PO QHS Label Comments: TAKE 1 TABLET BY MOUTH ONCE DAILY mirtazapine 7.5 mg tablet 7.5 mg PO QHS Label Comments: TAKE 1 TABLET BY MOUTH AT BEDTIME spironolactone 50 mg tablet 50 mg PO DAILY Qty: 0 0RF Label Comments: TAKE 1 TABLET BY MOUTH ONCE DAILY. Rx Instructions: Hold if serum potassium more than 4.5 tizanidine 4 mg tablet 4 mg PO Q8H PRN (Reason: muscle spasticity) Qty: 15 0RF pantoprazole 20 mg Tablet,Delayed Release (Dr/Ec) 20 mg PO BID 30 Days Qty: 60 0RF Eliquis 5 mg tablet 5 mg PO BID Qty: 60 0RF ascorbic acid (vitamin C) 500 mg tablet 500 mg PO BID Qty: 60 2RF oxycodone-acetaminophen [Percocet] 5-325 mg tablet 1 tab PO Q6H PRN (Reason: pain) 2 Days Qty: 6 0RF furosemide [Lasix] 20 mg tablet 20 mg PO DAILY PRN (Reason: leg swelling) Qty: 10 0RF Rx Instructions: Do not take if systolic blood pressure is less than 110 mmHg losartan 25 mg tablet 100 mg PO DAILY Qty: 14 0RF Rx Instructions: Hold for SBP less than 110 mmHg metoprolol succinate 100 mg tablet extended release 24 hr 100 mg PO DAILY Qty: 14 0RF Label Comments: TAKE (1) TABLET BY MOUTH ONCE DAILY Rx Instructions: Hold for heart less than 60 or systolic blood pressure less than 100 mmHg. Primary Care Provider: Ysabel Ruffin Referrals: Ysabel Ruffin MD [Primary Care Provider] - As soon as possible Disposition Disposition: Home, Self Care
[2022-04-01 13:44] LABS: Absolute Lymphocyte Count 2.14 X10^3/uL (0.83-4.51); Absolute Neutrophil Count 5.7 X10^3/uL (2.0-7.7); Basophil# 0.04 X10^3/uL; Basophil% 0.5 % (0-1); Eosinophil# 0.11 X10^3/uL; Eosinophils% 1.3 % (0-5); Hematocrit 26.8 % (37-47); Hemoglobin 8.3 g/dL (12.0-15.0); Lymphocyte # 2.14 X10^3/ul (0.83-4.51); Lymphocyte % 25.1 % (19-41); Mean Corpuscular Hgb 26.2 pg (27.0-32.0); Mean Corpuscular Volume 84.5 fL (81-99); Mean Platelet Vol. 10.9 fl (6.2-12.0); Monocyte# 0.56 X10^3/uL; Monocyte% 6.6 % (0-10); NRBC Flagged by Analyzer 0 % (0-5); Neutrophil # 5.67 X10^3/uL (2.7-7.7); Neutrophil % 66.3 % (47-70); Platelet Count 373 K/mm3 (150-450); RBC Distribution Width CV 15.9 % (11.6-14.6); RBC Distribution Width SD 49.7 fl (35.1-43.9); Red Blood Count 3.17 M/mm3 (4.2-5.4); White Blood Count 8.5 K/mm3 (4.4-11.0)
--- NOTE | 2022-04-01 13:45 | RAD_ITS ---
STUDY: X-RAY CHEST REASON FOR EXAM: Female, 56 years old. Atypical chest pain TECHNIQUE: Single AP portable view of the chest. COMPARISON: None. FINDINGS: EKG leads overlie the chest The lungs are clear and expanded. There is no demonstrated pleural abnormality. Normal size heart. Normal mediastinum and timi. Normal visualized pulmonary arteries. Normal visualized aortic arch and descending thoracic aorta. Normal visualized thoracic spine. Normal visualized ribs, clavicles, and shoulders. There is no demonstrated abnormality of the visualized soft tissue structures of the upper abdomen. RAD/Chest 1 View (Portable) IMPRESSION: Normal x-ray examination of the chest. Electronically Signed: Neto Eduardo MD at 13:59 EDT ,
[2022-04-01 14:00] LABS: Anion Gap 9 (5-15); BUN 19 mg/dL (7-18); BUN/Creat Ratio 18.4 RATIO (10-20); Calcium,Total 9.2 mg/dL (8.5-10.1); Chloride 106 mmol/L (98-107); Creatinine, Serum 1.03 mg/dL (0.55-1.02); EST Glomerular Filtration Rate 59 mL/min (>60); Est Glom Filt Rate - Afr Amer 71 mL/min (>60); Estimated Creatinine Clearance 57.09 ml/min; Glucose 108 mg/dL (74-106); Magnesium 2.1 mg/dL (1.6-2.6); Potassium 3.9 mmol/L (3.5-5.1); Sodium Level 138 mmol/L (136-145); Troponin-I HS (w/2H Reflex) 7 pg/mL (3.0-54.0)
[2022-04-01 14:58] VITALS: BP 132/83; PULSE 83; RESP 16; O2SAT 99
[2022-04-01] MEDS: oxyCODONE 5 MG Tablet PO (15:00)
[2022-04-01] MEDS: APIXABAN 5 MG TABLET PO (15:00)
[2022-04-01 15:34] LABS: Reflex Troponin-HS? (from REC) Y
[2022-04-01 16:13] LABS: Troponin-I HS 7 pg/mL (3.0-54.0)
[2022-04-01 16:29] VITALS: BP 124/85; PULSE 80; RESP 17
== END 2022-04-01 17:11 | disposition home or self-care (01) ==
PROVIDERS: Emergency Provider Emergency Medicine; PCP Internal Medicine; Visit Provider Emergency Medicine
DX: S09.90XA Unspecified injury of head, initial encounter (principal); G20 Parkinson's disease; J44.9 Chronic obstructive pulmonary disease, unspecified; I11.0 Hypertensive heart disease with heart failure; I50.9 Heart failure, unspecified; S20.219A Contusion of unspecified front wall of thorax, initial encounter; W01.190A Fall on same level from slipping, tripping and stumbling with subsequent striking against furniture, initial encounter; I25.10 Atherosclerotic heart disease of native coronary artery without angina pectoris; E78.5 Hyperlipidemia, unspecified; D64.9 Anemia, unspecified; R29.6 Repeated falls; I25.2 Old myocardial infarction; Z79.01 Long term (current) use of anticoagulants; Z99.81 Dependence on supplemental oxygen; Z86.711 Personal history of pulmonary embolism; Z87.891 Personal history of nicotine dependence
CPT/HCPCS: 70450; 71045; 80048; 83735; 84484; 85025; 93005; 99285; A4216

== ENCOUNTER → 2022-05-01 | Outpatient (CLI) | payer MEDICAID, SELFPAY | END | disposition home or self-care (01) | LOC: LABSPEC 11:34 | PROVIDERS: PCP Internal Medicine; Visit Provider Nurse Practitioner Acute Care | DX: Z00.00 Encounter for general adult medical examination without abnormal findings (principal) ==

== ENCOUNTER 2022-06-05 20:04 | Observation (INO) | payer MEDICAID, SELFPAY ==
[2022-06-05 20:06] VITALS: BP 91/70; PULSE 66; RESP 14; TEMP 35.7; O2SAT 95; BMI 24.2
--- NOTE | 2022-06-05 21:10 | EKG12_ITS ---
Test Reason : DYSRHYTHMIA Blood Pressure : / mmHG Vent. Rate : 058 BPM Atrial Rate : 058 BPM P-R Int : 148 ms QRS Dur : 088 ms QT Int : 442 ms P-R-T Axes : 065 -10 003 degrees QTc Int : 433 ms Sinus bradycardia Poor R wave progression Confirmed by GSIELA BATISTA, FAY ([id number]), fan mail editor SAUMYA PERAZA ([id number]) on 06/06/2022 11:44:41 AM Referred By: AIDA Confirmed By:FAY HIGGINS MD
[2022-06-05 22:05] VITALS: RESP 18
--- NOTE | 2022-06-05 23:04 | EX.ED.DYSGE1 ---
HPI History of Present Illness Chief Complaint: Abn Labs Narrative Narrative: This patient saw her doctor today for his generalized weakness going on a few days. She is still eating and drinking although possibly a little bit less. She has not been having vomiting. She is not having diarrhea. She just feels a little bit more tired and worn out than normal. She does have multiple medical problems. She is also on Eliquis for history of embolus and she is taking this. There has been no change in medications recently. Of note she is on Lasix although did not know that she was on any diuretics. But it sounds like this is not changed. She is also on spironolactone. Outpatient labs were done. She stated that these showed something up with her kidney and her calcium. When I looked at it looks like she had an acute kidney injury with some mild hyperkalemia. Of note, patient has been on Keflex for approximately 1 week for a lesion on her left shoulder. But she denies any significant nausea vomiting or diarrhea with this. [facility] Medical History Abnormal cardiac enzyme level Acute and chronic respiratory failure Acute respiratory failure with hypoxia and hypercapnia LEIGH ANN (acute kidney injury) Anemia Anxiety and depression Back pain Bilateral peripheral pulmonary emboli BiPAP (biphasic positive airway pressure) dependence Breast infection Cancer Cardiology follow-up encounter Cardiopulmonary arrest with successful resuscitation Chest pain Chronic anemia Chronic narcotic dependence Compression fracture of T5 vertebra Compression fracture of T6 vertebra Concussion Congestive heart failure COPD (chronic obstructive pulmonary disease) COPD exacerbation Coronary artery disease CPAP (continuous positive airway pressure) dependence Debility Depression Diastolic dysfunction DVT (deep vein thrombosis) in DVT (deep venous thrombosis) Essential hypertension Falls frequently Former smoker FTT (failure to thrive) in adult GERD (gastroesophageal reflux disease) H/O long-term (current) use of anticoagulants HLD (hyperlipidemia) Hx of cardiovascular stress test Hx of echocardiogram Hypothyroidism Morbid obesity MSSA (methicillin susceptible Staphylococcus aureus) pneumonia Myocardial infarct On home oxygen therapy STEPHANIE (obstructive sleep apnea) Pulmonary embolism Restrictive lung disease Right rib fracture Seizure disorder Seizures Sleep apnea Syncope and collapse TIA (transient ischemic attack) Wears dentures Wears glasses Home Medications albuterol sulfate 90 mcg/actuation aerosol inhaler (ProAir HFA) 2 puff inhalation Q4H PRN shortness of breath or wheezing 08/01/17 [History Last Taken 03/03/18] venlafaxine 75 mg capsule,extended release 24 hr 75 mg PO DAILY mental health 03/02/21 [History Last Taken 08/25/21] mometasone-formoterol HFA 100 mcg-5 mcg/actuation aerosol inhaler (Dulera) 2 puff inhalation Q12H PRN sob 03/15/21 [History Last Taken Unknown] venlafaxine 37.5 mg capsule,extended release 24 hr 37.5 mg PO DAILY Depression 04/25/21 [History Last Taken 08/25/21] clonazepam 1 mg tablet 1 mg PO BID anxiety 05/09/21 [History Last Taken 08/25/21] food supplemt, lactose-reduced (Ensure Compact oral liquid) 118 ml PO DAILY supplement 05/24/21 [History Last Taken 08/25/21] atorvastatin 80 mg tablet 80 mg PO QHS cholesterol 08/26/21 [History Last Taken 08/25/21] mirtazapine 7.5 mg tablet 7.5 mg PO QHS sleep 08/26/21 [History Last Taken Unknown] spironolactone 50 mg tablet 50 mg PO DAILY diuretic #0 tabs 08/31/21 [Rx Last Taken 08/25/21] tizanidine 4 mg tablet 4 mg PO Q8H PRN muscle spasticity #15 tabs 09/22/21 [Rx Last Taken Unknown] ascorbic acid (vitamin C) 500 mg tablet 500 mg PO BID #60 tabs 01/19/22 [Rx Last Taken Unknown] pantoprazole 20 mg tablet,delayed release 20 mg PO BID 30 days #60 tabs 01/19/22 [Rx Last Taken Unknown] oxycodone-acetaminophen 5 mg-325 mg tablet (Percocet) 1 tab PO Q6H PRN pain 2 days #6 tabs 03/15/22 [Rx Last Taken Unknown] furosemide 20 mg tablet (Lasix) 20 mg PO DAILY PRN leg swelling #10 tabs 03/31/22 [Rx Last Taken Unknown] losartan 25 mg tablet 100 mg PO DAILY blood pressure #14 tabs 03/31/22 [Rx Last Taken Unknown] metoprolol succinate 100 mg tablet,extended release 24 hr 100 mg PO DAILY blood pressure #14 tabs 03/31/22 [Rx Last Taken Unknown] oxycodone-acetaminophen 5 mg-325 mg tablet (Percocet) 1 tab PO Q6H PRN pain 3 days #10 tabs 04/01/22 [Rx Last Taken Unknown] levetiracetam 500 mg tablet (Keppra) 500 mg PO BID seizures #30 tabs 04/18/22 [Rx Last Taken Unknown] apixaban 5 mg tablet (Eliquis) 5 mg PO BID #60 tabs 06/05/22 [Rx Last Taken Unknown] carbidopa ER 50 mg-levodopa 200 mg tablet,extended release 1 tab PO TID #90 tabs 06/05/22 [Rx Last Taken Unknown] Allergy/AdvReac Type Severity Reaction Status Date / Time aspirin Allergy Hives Verified 06/05/22 20:06 dicyclomine Allergy Itching Verified 06/05/22 20:06 ibuprofen Allergy Hives Verified 06/05/22 20:06 ketorolac tromethamine Allergy Angioedema Verified 06/05/22 20:06 [From Toradol] nut - unspecified Allergy Hives Verified 06/05/22 20:06 Penicillins [PCN] Allergy Hives Verified 06/05/22 20:06 tramadol HCl [From Ultram] Allergy Angioedema Verified 06/05/22 20:06 Family History Brother Myocardial infarction Asthma Mental disorder Psychiatric care Suicide attempt Father Colon cancer Brother Mental disorder Aunt Parkinson disease Sister Breast cancer Cervical cancer Ovarian cancer Sister Cervical cancer Ovarian cancer Mother Cancer leukemia History of blood clots Hypertension Surgical History History of cardiac catheterization History of cholecystectomy History of esophagogastroduodenoscopy (EGD) History of hysterectomy History of left breast biopsy History of left heart catheterization (LHC) (~04/22/21) History of lumpectomy of left breast Hx of appendectomy S/P lumpectomy, left breast Social History household members: none current occupational status: unemployed Smoking Status: Former smoker quit date: 01/21/16 pack-years: 32 Electronic Cigarette Use: not used second hand exposure: Yes alcohol intake: never substance use type: does not use do you feel safe at home: No ROS ROS ED Constitutional Constitutional ED: Denies chills or fever(s) Eyes Eyes: Denies change in vision ENT ENT ED: Denies rhinorrhea or sore throat Cardiovascular Cardiovascular: Denies chest pain or palpitations Respiratory/Chest Respiratory/Chest: Denies cough Gastrointestinal Gastrointestinal: Denies diarrhea, nausea or vomiting Genitourinary Genitourinary ED: Denies dysuria Musculoskeletal Musculoskeletal: Denies myalgias Integumentary Denies rash Neurologic Neurologic: Denies headache(s) Psychiatric Psychiatric: Reports depression Endocrine Endocrinology: Denies polydipsia or polyuria Hematologic/Lymphatic Hematologic/Lymphatic: Reports easy bleeding and easy bruising Allergic/Immunologic Allergic/Immunologic ED: Denies urticaria EXAM Physical Exam Const Vital Signs: 06/05/22 20:06 06/05/22 22:05 06/05/22 22:12 Temperature 96.2 F L Temperature Source Temporal Pulse Rate 66 Respiratory Rate 14 18 Respiratory Effort Normal Non-Labored Blood Pressure 91/70 Blood Pressure Mean 77 Pulse Ox 95 Oxygen Delivery Method Nasal Cannula Oxygen Flow Rate (L/min) 3 06/05/22 23:44 06/06/22 00:08 Temperature Temperature Source Pulse Rate 54 L 54 L Respiratory Rate 15 16 Respiratory Effort Blood Pressure 73/49 L Blood Pressure Mean 57 Pulse Ox 95 98 Oxygen Delivery Method Nasal Cannula Nasal Cannula Oxygen Flow Rate (L/min) 2 2 Positive well nourished and well developed General Appearance ED: well developed and NAD; Negative for cyanotic or diaphoretic HEENT Reports dry mucous membranes HEENT Narrative: Mildly dry mucous membranes. Mouth ED: Yes dry mucous membranes Mouth: dry mucous membranes Eyes General Eye ED: Negative for scleral icterus Neck supple Chest Wall Chest Narrative: Patient has a lesion on the posterior left upper chest wall/shoulder area. This is about 1 and half centimeters around. But it does not look significantly cellulitic. Resp normal respiratory effort Auscultation: Negative for rales, rhonchi or wheezes Cardio regular rate GI normal to inspection, nondistended, normoactive bowel sounds and non-tender Back/Spine no CVA tenderness Extremity General Extremety ED: Negative for tenderness Neuro Sensorium / Orientation: alert Psych mental status grossly normal Skin Skin Narrative: Lesion on left posterior shoulder as above. MDM MDM MDM Narrative Medical decision making narrative: I reviewed patient's outpatient blood work. We did repeat some of this. Potassium is come down a little bit but creatinine is continued to rise. Urine is some mixed findings. There are 5-10 white cells which normally is not that high. But it is cloudy with leukocyte esterase and 2+ bacteria. She does have frequent UTIs but is not having specific urinary symptoms. She is also just finishing Keflex. A culture on this was sent. Patient's blood pressures have been low here. But I just found out that the patient is refusing blood pressure on her upper arm because it hurts too much. Blood pressures are being taken on her forearm and they are having trouble having consistency. She does not look like somebody who has a blood pressure of 73/49. With her complex history, questionable blood pressure, acute kidney injury with hyperkalemia she will be brought in the hospital for further hydration and observation Lab Data Attestation: I reviewed the patient's lab results. Labs: Laboratory Results - last 24 hr 06/05/22 06/05/22 06/05/22 22:00 23:17 23:41 Sodium Cancelled 136 Potassium Cancelled 5.6 H Chloride Cancelled 105 Carbon Dioxide Cancelled 26.0 Anion Gap Cancelled 5 BUN Cancelled 39 H Creatinine Cancelled 1.78 H Estim Creat Clear Calc Cancelled 33.04 Est GFR (MDRD) Af Amer Cancelled 38 L Est GFR (MDRD) Non-Af Cancelled 31 L BUN/Creatinine Ratio Cancelled 21.9 H Glucose Cancelled 117 H Calcium Cancelled 8.6 Magnesium Cancelled 2.4 Urine Color Yellow Urine Clarity Sl. Cloudy Urine pH 5.0 Ur Specific [place] 1.020 Urine Protein 30 H Urine Glucose (UA) Normal Urine Ketones 5 H Urine Occult Blood 25 H Urine Nitrite Negative Urine Bilirubin Negative Urine Urobilinogen 1 H Ur Leukocyte Esterase 500 H Urine RBC 0-5 SEEN Urine WBC 5-10 SEEN Ur Squamous Epith Cells 0-5 SEEN Ur Renal Epithelial Cell 0-5 SEEN Urine Bacteria 2+ Urine Mucus 0 SEEN EKG Initial EKG: Comments: EKG done for hyperkalemia read by me shows sinus rhythm at 58 mildly bradycardic. There is some diffuse nonspecific ST and T wave changes but no sign of acute infarct or ischemia. This is not a marked change from prior. AK interval, QRS duration and QTc are all normal. I do not see peaked T waves. Discharge Plan Dx/Rx/DC Orders Clinical Impression: Acute kidney injury, Acute hyperkalemia, Generalized muscle weakness Disposition Disposition: Acute Care Hospital [facility]
[2022-06-05 23:44] VITALS: PULSE 54; RESP 15; O2SAT 95
[2022-06-05 23:45] LABS: Mucous, Urine 0 SEEN /hpf (<or=2+)
[2022-06-05 23:45] LABS: Anion Gap 5 (5-15); BUN 39 mg/dL (7-18); BUN/Creat Ratio 21.9 RATIO (10-20); Calcium,Total 8.6 mg/dL (8.5-10.1); Chloride 105 mmol/L (98-107); Creatinine, Serum 1.78 mg/dL (0.55-1.02); EST Glomerular Filtration Rate 31 mL/min (>60); Est Glom Filt Rate - Afr Amer 38 mL/min (>60); Estimated Creatinine Clearance 33.04 ml/min; Glucose 117 mg/dL (74-106); Magnesium 2.4 mg/dL (1.6-2.6); Potassium 5.6 mmol/L (3.5-5.1); Sodium Level 136 mmol/L (136-145)
[2022-06-05 23:47] LABS: Color, Urine Yellow (Yellow); Glucose, Dipstick Normal (Normal); Ketone-Dipstick 5 mg/dl (Negative); Leukocyte Esterase-Dipstick 500 /ul (Negative); Nitrite-Dipstick Negative (Negative); Occult Blood-Urine 25 /ul (Negative); Protein-Dipstick 30 mg/dl (Negative); Urine Bilirubin Dipstick Negative (Negative); Urine Clarity Sl. Cloudy (Clear); Urine Urobilinogen 1 mg/dl (Normal)
[2022-06-06] VITALS (14 sets, daily range): BP systolic 73–108; BP diastolic 46–69; PULSE 50–62; RESP 13–18; TEMP 36.4–37; O2SAT 96–100; BMI 41.4
[2022-06-06 00:05] LABS: Bacteria 2+ /hpf (None Seen); Red Blood Cells-Urine 0-5 SEEN /hpf (0-5); Renal Epithelial Cells 0-5 SEEN /hpf (0-5); Squamous Epithelial Cells - UA 0-5 SEEN /hpf (5-10); White Blood Cells 5-10 SEEN /hpf (0-5)
--- NOTE | 2022-06-06 00:17 | CT_ITS ---
INDICATION: flank pain EXAMINATION: CT ABDOMEN AND PELVIS WITHOUT CONTRAST - CT Abdomen And Pelvis W/O Contrast Injection TECHNIQUE: Helically acquired images were obtained of the abdomen and pelvis without oral or IV contrast. A radiation dose optimization technique was used for this scan. IV Contrast dosage and agent: None. Oral contrast: None. COMPARISON: December 14, 2021. FINDINGS: LOWER CHEST: Lung bases are clear. No cardiomegaly or pericardial effusion. LIVER: Homogeneous. No focal mass. GALLBLADDER AND BILIARY TREE: Cholecystectomy. No intra- or extrahepatic biliary ductal dilation. PANCREAS: No focal cystic or solid mass. SPLEEN: Normal size without focal cystic or solid mass. ADRENAL GLANDS: No nodules. KIDNEYS AND URETERS: Left renal 4.2 cm cyst, no imaging follow-up required. Normal renal size and position. No hydronephrosis. PERITONEUM: No ascites or free air. No other fluid collection. BOWEL: Prior appendectomy. No stomach or bowel distension. No focal inflammatory change. Large colonic stool burden. Few scattered colonic diverticuli present without evidence of diverticulitis. LYMPH NODES: No enlarged mesenteric or retroperitoneal lymph nodes. VESSELS: Aorta is non-dilated. URINARY BLADDER: Unremarkable. REPRODUCTIVE ORGANS: Absent uterus. No evidence of adnexal mass.. ABDOMINAL WALL: No discrete abdominal or pelvic wall hernia. BONES: No lytic or blastic abnormality. CT/Abdomen/Pelvis without Cont IMPRESSION: Large colonic stool burden as can be seen with constipation. Colonic diverticulosis without evidence of diverticulitis. 4.2 cm left renal cyst, no imaging follow-up required. No nephrolithiasis or evidence of obstructive uropathy. Electronically Signed: Oli Rodriguez MD at 1:32 EST ,
[2022-06-06] MEDS: 0.9% Normal Saline 1,000 ML 999 ML IV ×2 (00:36→03:47)
--- NOTE | 2022-06-06 00:59 | HP.PCM_ITS ---
[facility] - General General Date of Admission: 06/06/22 Date of Service: 06/06/22 Chief Complaint: Abnormal labs HPI Narrative LUIS A CUMMINGS, is a 56 F who presents to the emergency room under the advice of her primary care physician after having abnormal outpatient laboratory studies earlier today. Her potassium was elevated at 6.2 and her creatinine was elevated to 1.5. Patient does have a history of edema and is taking Lasix and spironolactone together by her new primary care physician. She does have a significant history of breast cancer and pulmonary embolism. Patient also states she has been diagnosed with parkinsonism. She complains of some generalized flank pain. She denies nausea or vomiting, no chest pain or shortness of breath or fevers or chills. Laboratory studies were repeated here in the emergency room her potassium came down to 5.6 however her creatinine bumped to 1.78 and hospitalist team was called to admit the patient overnight for hydration for acute kidney injury. [facility] Medical History Abnormal cardiac enzyme level Acute and chronic respiratory failure Acute respiratory failure with hypoxia and hypercapnia LEIGH ANN (acute kidney injury) Anemia Anxiety and depression Back pain Bilateral peripheral pulmonary emboli BiPAP (biphasic positive airway pressure) dependence Breast infection Cancer Cardiology follow-up encounter Cardiopulmonary arrest with successful resuscitation Chest pain Chronic anemia Chronic narcotic dependence Compression fracture of T5 vertebra Compression fracture of T6 vertebra Concussion Congestive heart failure COPD (chronic obstructive pulmonary disease) COPD exacerbation Coronary artery disease CPAP (continuous positive airway pressure) dependence Debility Depression Diastolic dysfunction DVT (deep vein thrombosis) in DVT (deep venous thrombosis) Essential hypertension Falls frequently Former smoker FTT (failure to thrive) in adult GERD (gastroesophageal reflux disease) H/O long-term (current) use of anticoagulants HLD (hyperlipidemia) Hx of cardiovascular stress test Hx of echocardiogram Hypothyroidism Morbid obesity MSSA (methicillin susceptible Staphylococcus aureus) pneumonia Myocardial infarct On home oxygen therapy STEPHNAIE (obstructive sleep apnea) Pulmonary embolism Restrictive lung disease Right rib fracture Seizure disorder Seizures Sleep apnea Syncope and collapse TIA (transient ischemic attack) Wears dentures Wears glasses Home Medications albuterol sulfate 90 mcg/actuation aerosol inhaler (ProAir HFA) 2 puff inhalation Q4H PRN shortness of breath or wheezing 08/01/17 [History Last Taken 03/03/18] venlafaxine 75 mg capsule,extended release 24 hr 75 mg PO DAILY mental health 03/02/21 [History Last Taken 08/25/21] mometasone-formoterol HFA 100 mcg-5 mcg/actuation aerosol inhaler (Dulera) 2 puff inhalation Q12H PRN sob 03/15/21 [History Last Taken Unknown] venlafaxine 37.5 mg capsule,extended release 24 hr 37.5 mg PO DAILY Depression 04/25/21 [History Last Taken 08/25/21] clonazepam 1 mg tablet 1 mg PO BID anxiety 05/09/21 [History Last Taken 08/25/21] food supplemt, lactose-reduced (Ensure Compact oral liquid) 118 ml PO DAILY supplement 05/24/21 [History Last Taken 08/25/21] atorvastatin 80 mg tablet 80 mg PO QHS cholesterol 08/26/21 [History Last Taken 08/25/21] mirtazapine 7.5 mg tablet 7.5 mg PO QHS sleep 08/26/21 [History Last Taken Unknown] spironolactone 50 mg tablet 50 mg PO DAILY diuretic #0 tabs 08/31/21 [Rx Last Taken 08/25/21] tizanidine 4 mg tablet 4 mg PO Q8H PRN muscle spasticity #15 tabs 09/22/21 [Rx Last Taken Unknown] ascorbic acid (vitamin C) 500 mg tablet 500 mg PO BID #60 tabs 01/19/22 [Rx Last Taken Unknown] pantoprazole 20 mg tablet,delayed release 20 mg PO BID 30 days #60 tabs 01/19/22 [Rx Last Taken Unknown] oxycodone-acetaminophen 5 mg-325 mg tablet (Percocet) 1 tab PO Q6H PRN pain 2 days #6 tabs 03/15/22 [Rx Last Taken Unknown] furosemide 20 mg tablet (Lasix) 20 mg PO DAILY PRN leg swelling #10 tabs 03/31/22 [Rx Last Taken Unknown] losartan 25 mg tablet 100 mg PO DAILY blood pressure #14 tabs 03/31/22 [Rx Last Taken Unknown] metoprolol succinate 100 mg tablet,extended release 24 hr 100 mg PO DAILY blood pressure #14 tabs 03/31/22 [Rx Last Taken Unknown] oxycodone-acetaminophen 5 mg-325 mg tablet (Percocet) 1 tab PO Q6H PRN pain 3 days #10 tabs 04/01/22 [Rx Last Taken Unknown] levetiracetam 500 mg tablet (Keppra) 500 mg PO BID seizures #30 tabs 04/18/22 [Rx Last Taken Unknown] apixaban 5 mg tablet (Eliquis) 5 mg PO BID #60 tabs 06/05/22 [Rx Last Taken Unknown] carbidopa ER 50 mg-levodopa 200 mg tablet,extended release 1 tab PO TID #90 tabs 06/05/22 [Rx Last Taken Unknown] Allergy/AdvReac Type Severity Reaction Status Date / Time aspirin Allergy Hives Verified 06/05/22 20:06 dicyclomine Allergy Itching Verified 06/05/22 20:06 ibuprofen Allergy Hives Verified 06/05/22 20:06 ketorolac tromethamine Allergy Angioedema Verified 06/05/22 20:06 [From Toradol] nut - unspecified Allergy Hives Verified 06/05/22 20:06 Penicillins [PCN] Allergy Hives Verified 06/05/22 20:06 tramadol HCl [From Ultram] Allergy Angioedema Verified 06/05/22 20:06 Family History Brother Myocardial infarction Asthma Mental disorder Psychiatric care Suicide attempt Father Colon cancer Brother Mental disorder Aunt Parkinson disease Sister Breast cancer Cervical cancer Ovarian cancer Sister Cervical cancer Ovarian cancer Mother Cancer leukemia History of blood clots Hypertension Surgical History History of cardiac catheterization History of cholecystectomy History of esophagogastroduodenoscopy (EGD) History of hysterectomy History of left breast biopsy History of left heart catheterization (LHC) (~04/22/21) History of lumpectomy of left breast Hx of appendectomy S/P lumpectomy, left breast Social History household members: none current occupational status: unemployed Smoking Status: Former smoker quit date: 01/21/16 pack-years: 32 Electronic Cigarette Use: not used second hand exposure: Yes alcohol intake: never substance use type: does not use do you feel safe at home: No ROS Constitutional Constitutional: Denies change in weight Eyes Eyes: Denies blurry vision ENT HEENT: Denies abnormal hearing Cardiovascular Cardiovascular: Denies chest pain Respiratory/Chest Respiratory/Chest: Denies cough Gastrointestinal Gastrointestinal: Denies abdominal pain, nausea or vomiting Genitourinary Genitourinary: Denies dysuria Musculoskeletal Musculoskeletal: Reports back pain Integumentary Integumentary: Denies dry skin Neurologic Neurologic: Denies abnormal speech Psychiatric Psychiatric: Denies depression Vital Signs Vital Signs Vital Signs: 06/05/22 20:06 06/05/22 22:05 06/05/22 22:12 Temperature 96.2 F L Temperature Source Temporal Pulse Rate 66 Respiratory Rate 14 18 Respiratory Effort Normal Non-Labored Blood Pressure 91/70 Blood Pressure Mean 77 Pulse Ox 95 Oxygen Delivery Method Nasal Cannula Oxygen Flow Rate (L/min) 3 06/05/22 23:44 06/06/22 00:08 Temperature Temperature Source Pulse Rate 54 L 54 L Respiratory Rate 15 16 Respiratory Effort Blood Pressure 73/49 L Blood Pressure Mean 57 Pulse Ox 95 98 Oxygen Delivery Method Nasal Cannula Nasal Cannula Oxygen Flow Rate (L/min) 2 2 Weight Weight: 150 lb Body Mass Index (BMI) 24.2 Physical Exam Const oriented x3 HEENT normocephalic and head/scalp atraumatic Eyes PERRL Neck supple Lymph Lymphatic: no lymphadenopathy noted Resp normal respiratory effort, normal air movement and clear to auscultation bilaterally Cardio regular rate, regular rhythm, S1 normal heart sound and S2 normal heart sound GI normal to inspection, nondistended, normoactive bowel sounds GI Narrative: neg cva tenderness Skin General Skin Exam: no breakdown Neuro no focal motor deficits and no sensory deficits noted Results Lab / Micro Data Result Diagrams: 06/05/22 23:17 Labs: Laboratory Results - last 24 hr 06/05/22 22:00: Sodium Cancelled, Potassium Cancelled, Chloride Cancelled, Carbon Dioxide Cancelled, Anion Gap Cancelled, BUN Cancelled, Creatinine Cancelled, Estim Creat Clear Calc Cancelled, Est GFR (MDRD) Af Amer Cancelled, Est GFR (MDRD) Non-Af Cancelled, BUN/Creatinine Ratio Cancelled, Glucose Cancelled, Calcium Cancelled, Magnesium Cancelled 06/05/22 23:17: Sodium 136, Potassium 5.6 H, Chloride 105, Carbon Dioxide 26.0, Anion Gap 5, BUN 39 H, Creatinine 1.78 H, Estim Creat Clear Calc 33.04, Est GFR (MDRD) Af Amer 38 L, Est GFR (MDRD) Non-Af 31 L, BUN/Creatinine Ratio 21.9 H, Glucose 117 H, Calcium 8.6, Magnesium 2.4 06/05/22 23:41: Urine Color Yellow, Urine Clarity Sl. Cloudy, Urine pH 5.0, Ur Specific [place] 1.020, Urine Protein 30 H, Urine Glucose (UA) Normal, Urine Ketones 5 H, Urine Occult Blood 25 H, Urine Nitrite Negative, Urine Bilirubin Negative, Urine Urobilinogen 1 H, Ur Leukocyte Esterase 500 H, Urine RBC 0-5 SEEN, Urine WBC 5-10 SEEN, Ur Squamous Epith Cells 0-5 SEEN, Ur Renal Epithelial Cell 0-5 SEEN, Urine Bacteria 2+, Urine Mucus 0 SEEN Assessment & Plan Assessment/Plan (1) Acute kidney injury: (2) Acute hyperkalemia: (3) Generalized muscle weakness: (4) Falls frequently: (5) Obesity: (6) STEPHANIE (obstructive sleep apnea): (7) COPD (chronic obstructive pulmonary disease): QUALIFIERS: COPD type: unspecified COPD Qualified Code(s): J44.9 - Chronic obstructive pulmonary disease, unspecified (8) Hypothyroidism: QUALIFIERS: Hypothyroidism type: unspecified Qualified Code(s): E03.9 - Hypothyroidism, unspecified (9) Depression: QUALIFIERS: Depression Type: unspecified Qualified Code(s): F32.9 - Major depressive disorder, single episode, unspecified (10) Anxiety and depression: PLAN: Plan 1 acute kidney injury with generalized weakness and transient hyperkalemia?admit patient to general medical floor for observation, start normal saline at a rate of 125 cc/h, repeat BMP in the morning. We will hold Lasix and spironolactone as well and would recommend these medications be adjusted at outpatient follow- up. 2. COPD?continue oxygen and routine medications 3. Hypothyroidism continue Synthroid 4. Depression?continue antidepressive medication 5. Generalized weakness we will have physical therapy evaluate and treat for activities of daily living and assess fall risk 6. DVT prophylaxis?patient is already anticoagulated on Eliquis Charges/Coding Visit Charges OBSV E&M: [id number] Initial observation care L2
[2022-06-06 02:12] LABS: Lactic Acid 0.6 mmol/L (0.4-1.9)
[2022-06-06] MEDS: 0.9% Normal Saline 1,000 ML 125 ML IV ×2 (03:09→13:51)
[2022-06-06 06:40] LABS: Anion Gap 4 (5-15); BUN 35 mg/dL (7-18); BUN/Creat Ratio 23.8 RATIO (10-20); Calcium,Total 8.2 mg/dL (8.5-10.1); Chloride 107 mmol/L (98-107); Creatinine, Serum 1.47 mg/dL (0.55-1.02); EST Glomerular Filtration Rate 39 mL/min (>60); Est Glom Filt Rate - Afr Amer 47 mL/min (>60); Glucose 90 mg/dL (74-106); Potassium 5.1 mmol/L (3.5-5.1); Sodium Level 136 mmol/L (136-145)
[2022-06-06] MEDS: CARBIDOPA/LEVODOPA CR 50/200 Tablet PO ×2 (06:58→13:52)
[2022-06-06] MEDS: Budesonide Respules 0.5 MG/2 ML AMPUL.NEB. INHALATION (07:06)
[2022-06-06] MEDS: Albuterol 2.5 MG/3 ML VIAL.NEB. INHALATION ×2 (07:06→14:09)
[2022-06-06] MEDS: Ascorbic Acid 500 MG Tablet PO (08:42)
[2022-06-06] MEDS: Venlafaxine XR 75 MG Capsule PO (08:42)
[2022-06-06] MEDS: Pantoprazole Sodium 20 MG Tablet PO (08:42)
[2022-06-06] MEDS: clonazePAM 1 MG Tablet PO (08:42)
[2022-06-06] MEDS: APIXABAN 5 MG TABLET PO (08:42)
[2022-06-06] MEDS: levETIRAcetam 500 MG Tablet PO (08:42)
--- NOTE | 2022-06-06 11:35 | CASEMGMT ---
PAT ALBA Face to Face with patient for initial transition planning/care coordination assessment. RN ANJALI introduced self and role at [facility]. Patient lying in bed, alert and oriented. Patient willing to participate in assessment and is able to answer all questions appropriately. Care providers, pharmacy, and demographics verified. Patient wishes to discharge home with resumption of hospice services. Patient states she has no further needs or concerns at this time. CM to follow for discharge planning needs that may arise. PCP: Laly Specialists: [facility] Preferred Pharmacy: [facility] Insurance: [employer] Prescription Benefit: yes Living Will/HPOA: none LNOK: sister in law, brother Living Arrangements: Patient lives alone in a first floor apartment with no steps to enter. Patient state she is independent at home. Transportation: sister in law DME/HHC: Patient states she has shower chair, walker, wheelchair, bipap, nebulizer, and home oxygen at 3pm with portability setup through hospice. Patient has aide once per week from hospice. Patient states she is active with [facility]. Disposition Plan: Patient to discharge home with resumption of hospice care, family support, and follow-up plans in place. Ivy NVAA, RN, CM
[2022-06-06 11:39] LABS: Anion Gap 4 (5-15); BUN 29 mg/dL (7-18); BUN/Creat Ratio 24.6 RATIO (10-20); Calcium,Total 8.4 mg/dL (8.5-10.1); Chloride 111 mmol/L (98-107); Creatinine, Serum 1.18 mg/dL (0.55-1.02); EST Glomerular Filtration Rate 50 mL/min (>60); Est Glom Filt Rate - Afr Amer 61 mL/min (>60); Estimated Creatinine Clearance 49.84 ml/min; Glucose 93 mg/dL (74-106); Potassium 4.9 mmol/L (3.5-5.1); Sodium Level 139 mmol/L (136-145)
--- NOTE | 2022-06-06 11:44 | CASEMGMT ---
Patient informed RN ANJALI that she is active with [facility]. WILNER called Cora at Hospice and let her know patient is admitted to [facility]. Cora said she will send a nurse in to have patient revoke Hospice. WILNER will send updates to Hospice. Kathryn ROWE
[2022-06-06] MEDS: oxyCODONE 5 MG Tablet PO (14:29)
--- NOTE | 2022-06-06 14:56 | DCINST_ITS ---
Discharge Instructions Diet Discharge Diet: - (Resume previous diet) Activity Discharge Activity: Return to Normal Activity Follow Up Care Test Results: Test results from this visit will be discussed in further detail at your follow- up appointment, if applicable. Discharge Plan Admission Admit Date/Time: 06/06/22 01:06 Primary Reason for Your Visit: Worsening kidney function and high potassium Attending Provider: Selena Covington Primary Care Provider: Ysabel Ruffin Consulting Providers: Kee Mayes Instructions Patient Instructions: Kidney Problems Additional Instructions / Restrictions: *Please take this with you to your next doctors appointment* ?You were admitted with an elevated potassium and worsened kidney function which appeared to have been due to medication and dehydration ? You significantly improved when you were given fluids and these medications were held ? Would recommend you continue to hold the Lasix and spironolactone as well as the losartan ? Additionally your metoprolol was decreased to 50 mg due to your blood pressure and heart rate running on the low side. Would recommend continuing this dosage ? Recommend you obtain lab work (BMP) to check your potassium and kidney function in 3 to 5 days through your primary care physician's office. Please call upon discharge to schedule hospital follow-up appointment and obtain lab work order ? Continue your home dose of Effexor and other home medications -Please call your primary care provider's office upon discharge to schedule a hospital follow up within 1 week. -For any concerning signs or symptoms please call 911 or proceed to the nearest emergency department Discharge Orders/Prescriptions Prescriptions: Continued albuterol sulfate [ProAir HFA] 90 mcg/actuation HFA aerosol inhaler 2 puff INHALATION Q4H PRN (Reason: shortness of breath or wheezing) venlafaxine 75 mg capsule,extended release 24hr 75 mg PO DAILY Ensure Compact Liquid 118 ml PO DAILY Label Comments: 2 ENSURE'S DAILY Eliquis 5 mg tablet 5 mg PO BID Qty: 60 1RF Dulera 100-5 mcg/actuation Hfa Aerosol Inhaler 2 puff INHALATION Q12H PRN (Reason: sob) venlafaxine 37.5 mg capsule,extended release 24hr 37.5 mg PO DAILY Label Comments: TAKE 1 CAPSULE BY MOUTH ONCE DAILY WITH 75MG CAPSULE . APPOINTMENT REQUIRED FOR FUTURE REFILLS Rx Instructions: Take daily with 75 mg dose clonazepam 1 mg tablet 1 mg PO BID atorvastatin 80 mg tablet 80 mg PO QHS Label Comments: TAKE 1 TABLET BY MOUTH ONCE DAILY mirtazapine 7.5 mg tablet 7.5 mg PO QHS Label Comments: TAKE 1 TABLET BY MOUTH AT BEDTIME tizanidine 4 mg tablet 4 mg PO Q8H PRN (Reason: muscle spasticity) Qty: 15 0RF pantoprazole 20 mg Tablet,Delayed Release (Dr/Ec) 20 mg PO BID 30 Days Qty: 60 0RF ascorbic acid (vitamin C) 500 mg tablet 500 mg PO BID Qty: 60 2RF oxycodone-acetaminophen [Percocet] 5-325 mg tablet 1 tab PO Q6H PRN (Reason: pain) 2 Days Qty: 6 0RF levetiracetam [Keppra] 500 mg tablet 500 mg PO BID Qty: 30 4RF carbidopa-levodopa 50-200 mg tablet extended release 1 tab PO TID Qty: 90 3RF Rx Instructions: 1 TAB orally three times a day Changed metoprolol succinate 100 mg tablet extended release 24 hr 50 mg PO DAILY Qty: 14 0RF Label Comments: TAKE (1) TABLET BY MOUTH ONCE DAILY Rx Instructions: Hold for heart less than 60 or systolic blood pressure less than 100 mmHg. Discontinued spironolactone 50 mg tablet 50 mg PO DAILY Qty: 0 0RF Label Comments: TAKE 1 TABLET BY MOUTH ONCE DAILY. Rx Instructions: Hold if serum potassium more than 4.5 oxycodone-acetaminophen [Percocet] 5-325 mg tablet 1 tab PO Q6H PRN (Reason: pain) 3 Days Qty: 10 0RF furosemide [Lasix] 20 mg tablet 20 mg PO DAILY PRN (Reason: leg swelling) Qty: 10 0RF Rx Instructions: Do not take if systolic blood pressure is less than 110 mmHg losartan 25 mg tablet 100 mg PO DAILY Qty: 14 0RF Rx Instructions: Hold for SBP less than 110 mmHg Referrals / Follow Up: Ysabel Ruffin MD [Primary Care Provider] - 06/13/22 11:00 am Disposition Disposition (needs filled in before D/C Order can be placed): Home, Self Care
--- NOTE | 2022-06-06 15:07 | DS.PCM_ITS ---
Providers Date of Admission: 06/06/22 Date of Discharge: 06/06/22 Primary Care Physician: Dr. Ysabel Ruffin MD Reason For Visit: ACUTE KIDNEY INJURY Diagnosis Discharge Diagnosis (1) Acute kidney injury: Status: Acute Code(s): N17.9 - Acute kidney failure, unspecified (2) Acute hyperkalemia: Status: Acute Code(s): E87.5 - Hyperkalemia (3) Generalized muscle weakness: Status: Acute Code(s): M62.81 - Muscle weakness (generalized) (4) Falls frequently: Status: Acute Code(s): R29.6 - Repeated falls (5) Obesity: Status: Chronic Code(s): E66.9 - Obesity, unspecified (6) STEPHANIE (obstructive sleep apnea): Status: Chronic Code(s): G47.33 - Obstructive sleep apnea (adult) (pediatric) (7) COPD (chronic obstructive pulmonary disease): Status: Chronic Code(s): J44.9 - Chronic obstructive pulmonary disease, unspecified Qualifiers: COPD type: unspecified COPD Qualified Code(s): J44.9 - Chronic obstructive pulmonary disease, unspecified (8) Hypothyroidism: Status: Chronic Code(s): E03.9 - Hypothyroidism, unspecified Qualifiers: Hypothyroidism type: unspecified Qualified Code(s): E03.9 - Hypothyroidism, unspecified (9) Depression: Status: Chronic Code(s): F32.9 - Major depressive disorder, single episode, unspecified Qualifiers: Depression Type: unspecified Qualified Code(s): F32.9 - Major depressive disorder, single episode, unspecified (10) Anxiety and depression: Status: Chronic Code(s): F41.8 - Other specified anxiety disorders Medications at Discharge Home Medications albuterol sulfate 90 mcg/actuation aerosol inhaler (ProAir HFA) 2 puff inhalation Q4H PRN shortness of breath or wheezing 08/01/17 venlafaxine 75 mg capsule,extended release 24 hr 75 mg PO DAILY mental health 03/02/21 mometasone-formoterol HFA 100 mcg-5 mcg/actuation aerosol inhaler (Dulera) 2 puff inhalation Q12H PRN sob 03/15/21 venlafaxine 37.5 mg capsule,extended release 24 hr 37.5 mg PO DAILY Depression 04/25/21 clonazepam 1 mg tablet 1 mg PO BID anxiety 05/09/21 food supplemt, lactose-reduced (Ensure Compact oral liquid) 118 ml PO DAILY supplement 05/24/21 atorvastatin 80 mg tablet 80 mg PO QHS cholesterol 08/26/21 mirtazapine 7.5 mg tablet 7.5 mg PO QHS sleep 08/26/21 tizanidine 4 mg tablet 4 mg PO Q8H PRN muscle spasticity #15 tabs 09/22/21 ascorbic acid (vitamin C) 500 mg tablet 500 mg PO BID #60 tabs 01/19/22 pantoprazole 20 mg tablet,delayed release 20 mg PO BID 30 days #60 tabs 01/19/22 oxycodone-acetaminophen 5 mg-325 mg tablet (Percocet) 1 tab PO Q6H PRN pain 2 days #6 tabs 03/15/22 levetiracetam 500 mg tablet (Keppra) 500 mg PO BID seizures #30 tabs 04/18/22 apixaban 5 mg tablet (Eliquis) 5 mg PO BID #60 tabs 06/05/22 carbidopa ER 50 mg-levodopa 200 mg tablet,extended release 1 tab PO TID #90 tabs 06/05/22 metoprolol succinate 100 mg tablet,extended release 24 hr 50 mg PO DAILY blood pressure #14 tabs 06/06/22 Hospital Course Summary of Care Provided Minutes Spent on Discharge: 32 Hospital Course: Ms. Prerin is a 56-year-old female with a history of anxiety and depression, parkinsonism, compression fractures, STEPHANIE, breast cancer with a history of DVT, GERD, hypothyroidism, as well as seizure disorder who presented to [facility] 06/06/2022 at the urging of her primary care physician as her potassium on labs was 6.2 and her creatinine was 1.5. Has a history of edema and takes Lasix and spironolactone together. In the ED creatinine bumped to 1.78 and she was admitted. Her spironolactone, Lasix, losartan were held and she was hydrated, creatinine trended and continued to improve and she felt significantly better. Discussed waiting and watching overnight versus home and she preferred to be discharged home. She was admitted as an inpatient but given her significant and unexpected improvement in a short period of time it is reasonable to discharge her home. On the day of discharge 06/06/2022 she reports feeling well, no back or flank pain, no chest pain or shortness of breath. Eating and drinking well. No complaints. Instructions provided for patient as below: *Please take this with you to your next doctors appointment* ?You were admitted with an elevated potassium and worsened kidney function which appeared to have been due to medication and dehydration ? You significantly improved when you were given fluids and these medications were held ? Would recommend you continue to hold the Lasix and spironolactone as well as the losartan ? Additionally your metoprolol was decreased to 50 mg due to your blood pressure and heart rate running on the low side.? Would recommend continuing this dosage ? Recommend you obtain lab work (BMP) to check your potassium and kidney function in 3 to 5 days through your primary care physician's office.? Please call upon discharge to schedule hospital follow-up appointment and obtain lab work order ? Continue your home dose of Effexor and other home medications -Please call your primary care provider's office upon discharge to schedule a hospital follow up within 1 week. -For any concerning signs or symptoms please call 911 or proceed to the nearest emergency department Physical Exam Const alert and no apparent distress Constitutional Narrative: Oriented HEENT normocephalic and head/scalp atraumatic Eyes Eyes Narrative: EOM grossly intact, anicteric Neck supple Resp normal respiratory effort and clear to auscultation bilaterally Cardio regular rate and regular rhythm GI soft to palpation, non-tender and non-distended Extremity Extremity Narrative: No edema appreciated Neuro moves all extremities Neuro Narrative: No overt focal deficits appreciated Psych Psych Narrative: Cooperative Weight / BMI Weight Weight: 116.4 kg Body Mass Index (BMI) 41.4 ABG / Lab / Microbiology Data Result Diagrams: 06/06/22 10:49 Laboratory: Laboratory Results - last 24 hr 06/05/22 22:00: Sodium Cancelled, Potassium Cancelled, Chloride Cancelled, Carbon Dioxide Cancelled, Anion Gap Cancelled, BUN Cancelled, Creatinine Cancelled, Estim Creat Clear Calc Cancelled, Est GFR (MDRD) Af Amer Cancelled, Est GFR (MDRD) Non-Af Cancelled, BUN/Creatinine Ratio Cancelled, Glucose Cancelled, Calcium Cancelled, Magnesium Cancelled 06/05/22 23:17: Sodium 136, Potassium 5.6 H, Chloride 105, Carbon Dioxide 26.0, Anion Gap 5, BUN 39 H, Creatinine 1.78 H, Estim Creat Clear Calc 33.04, Est GFR (MDRD) Af Amer 38 L, Est GFR (MDRD) Non-Af 31 L, BUN/Creatinine Ratio 21.9 H, Glucose 117 H, Calcium 8.6, Magnesium 2.4 06/05/22 23:41: Urine Color Yellow, Urine Clarity Sl. Cloudy, Urine pH 5.0, Ur Specific [place] 1.020, Urine Protein 30 H, Urine Glucose (UA) Normal, Urine Ketones 5 H, Urine Occult Blood 25 H, Urine Nitrite Negative, Urine Bilirubin Negative, Urine Urobilinogen 1 H, Ur Leukocyte Esterase 500 H, Urine RBC 0-5 SEE N, Urine WBC 5-10 SEEN, Ur Squamous Epith Cells 0-5 SEEN, Ur Renal Epithelial Cell 0-5 SEEN, Urine Bacteria 2+, Urine Mucus 0 SEEN 06/06/22 01:35: Lactic Acid 0.6 06/06/22 05:45: Sodium 136, Potassium 5.1, Chloride 107, Carbon Dioxide 25.0, A nion Gap 4 L, BUN 35 H, Creatinine 1.47 H, Estim Creat Clear Calc 40.00, Est GFR (MDRD) Af Amer 47 L, Est GFR (MDRD) Non-Af 39 L, BUN/Creatinine Ratio 23.8 H, Glucose 90, Calcium 8.2 L 06/06/22 10:49: Sodium 139, Potassium 4.9, Chloride 111 H, Carbon Dioxide 24.0, Anion Gap 4 L, BUN 29 H, Creatinine 1.18 H, Estim Creat Clear Calc 49.84, Est GFR (MDRD) Af Amer 61, Est GFR (MDRD) Non-Af 50 L, BUN/Creatinine Ratio 24.6 H, Glucose 93, Calcium 8.4 L Microbiology: Microbiology 06/06/22 02:00 Nasal Secretion SARS-CoV-2 & FLU Antigen (Rapid) - Final Radiography Diagnostic Testing: Radiology Impression Abdomen/Pelvis CT 06/06/22 00:17 IMPRESSION: Large colonic stool burden as can be seen with constipation. Colonic diverticulosis without evidence of diverticulitis. 4.2 cm left renal cyst, no imaging follow-up required. No nephrolithiasis or evidence of obstructive uropathy. Electronically Signed: Oli Rodriguez MD at 1:32 EST Reading Location ID and State: [facility] / [place] Tel , Service support , D/C Instructions Discharge Diet: - (Resume previous diet) Meaningful Use Info Meaningful Use Diagnoses (Choose all that apply): None applicable Discharge Plan Admission Admit Date/Time: 06/06/22 01:06 Primary Reason for Your Visit: Worsening kidney function and high potassium Attending Provider: Selena Covington Primary Care Provider: Ysabel Ruffin Consulting Providers: Kee Mayes Instructions Patient Instructions: Kidney Problems Additional Instructions / Restrictions: *Please take this with you to your next doctors appointment* ?You were admitted with an elevated potassium and worsened kidney function which appeared to have been due to medication and dehydration ? You significantly improved when you were given fluids and these medications were held ? Would recommend you continue to hold the Lasix and spironolactone as well as the losartan ? Additionally your metoprolol was decreased to 50 mg due to your blood pressure and heart rate running on the low side. Would recommend continuing this dosage ? Recommend you obtain lab work (BMP) to check your potassium and kidney function in 3 to 5 days through your primary care physician's office. Please call upon discharge to schedule hospital follow-up appointment and obtain lab work order ? Continue your home dose of Effexor and other home medications -Please call your primary care provider's office upon discharge to schedule a hospital follow up within 1 week. -For any concerning signs or symptoms please call 911 or proceed to the nearest emergency department Discharge Orders/Prescriptions Prescriptions: Continued albuterol sulfate [ProAir HFA] 90 mcg/actuation HFA aerosol inhaler 2 puff INHALATION Q4H PRN (Reason: shortness of breath or wheezing) venlafaxine 75 mg capsule,extended release 24hr 75 mg PO DAILY Ensure Compact Liquid 118 ml PO DAILY Label Comments: 2 ENSURE'S DAILY Eliquis 5 mg tablet 5 mg PO BID Qty: 60 1RF Dulera 100-5 mcg/actuation Hfa Aerosol Inhaler 2 puff INHALATION Q12H PRN (Reason: sob) venlafaxine 37.5 mg capsule,extended release 24hr 37.5 mg PO DAILY Label Comments: TAKE 1 CAPSULE BY MOUTH ONCE DAILY WITH 75MG CAPSULE . APPOINTMENT REQUIRED FOR FUTURE REFILLS Rx Instructions: Take daily with 75 mg dose clonazepam 1 mg tablet 1 mg PO BID atorvastatin 80 mg tablet 80 mg PO QHS Label Comments: TAKE 1 TABLET BY MOUTH ONCE DAILY mirtazapine 7.5 mg tablet 7.5 mg PO QHS Label Comments: TAKE 1 TABLET BY MOUTH AT BEDTIME tizanidine 4 mg tablet 4 mg PO Q8H PRN (Reason: muscle spasticity) Qty: 15 0RF pantoprazole 20 mg Tablet,Delayed Release (Dr/Ec) 20 mg PO BID 30 Days Qty: 60 0RF ascorbic acid (vitamin C) 500 mg tablet 500 mg PO BID Qty: 60 2RF oxycodone-acetaminophen [Percocet] 5-325 mg tablet 1 tab PO Q6H PRN (Reason: pain) 2 Days Qty: 6 0RF levetiracetam [Keppra] 500 mg tablet 500 mg PO BID Qty: 30 4RF carbidopa-levodopa 50-200 mg tablet extended release 1 tab PO TID Qty: 90 3RF Rx Instructions: 1 TAB orally three times a day Changed metoprolol succinate 100 mg tablet extended release 24 hr 50 mg PO DAILY Qty: 14 0RF Label Comments: TAKE (1) TABLET BY MOUTH ONCE DAILY Rx Instructions: Hold for heart less than 60 or systolic blood pressure less than 100 mmHg. Discontinued spironolactone 50 mg tablet 50 mg PO DAILY Qty: 0 0RF Label Comments: TAKE 1 TABLET BY MOUTH ONCE DAILY. Rx Instructions: Hold if serum potassium more than 4.5 oxycodone-acetaminophen [Percocet] 5-325 mg tablet 1 tab PO Q6H PRN (Reason: pain) 3 Days Qty: 10 0RF furosemide [Lasix] 20 mg tablet 20 mg PO DAILY PRN (Reason: leg swelling) Qty: 10 0RF Rx Instructions: Do not take if systolic blood pressure is less than 110 mmHg losartan 25 mg tablet 100 mg PO DAILY Qty: 14 0RF Rx Instructions: Hold for SBP less than 110 mmHg Referrals / Follow Up: Ysabel Ruffin MD [Primary Care Provider] - 06/13/22 11:00 am Disposition Disposition (needs filled in before D/C Order can be placed): Home, Self Care Charges/Coding Visit Charges Inpatient E&M: 52392 Disch Hosp
--- NOTE | 2022-06-06 15:14 | CASEMGMT ---
SW spoke with patient and confirmed she plans on resuming Hospice at discharge. SW will notify Hospice and send d/c instructions. Plan: Home with resumption of [facility]. Kathryn ROWE
--- NOTE | 2022-06-06 15:25 | CASEMGMT ---
WILNER called Cora at Hospice letting her know patient is being discharged today. WILNER faxed d/c instructions and summary to Cora. Cora asked WILNER to notify patient that Hospice will be out tomorrow afternoon to complete paperwork. WILNER went to patient's room and notified her that Hospice will be at her home tomorrow afternoon for paperwork. Plan: d/c home with resumption of [facility]. Kathryn ROWE
--- NOTE | 2022-06-06 15:39 | CHAPLAIN ---
Type of Pastoral Visit _x__ Initial Visit ___ Follow-up Visit ___ On-call Visit ___ General Patient Visit ___ Spiritual Assessment ___ Family Conference ___ Bereavement ___ Rapid Response ___ Code Blue ___ Other (describe below) Pastoral Care Referral From _x__ Patient ___ Family ___ Nurse ___ Physician ___ Water Quality Manager ___ Court Security Officer ___ Other (describe below) Sacrament/Intervention _x__ Active listening ___ Anointing ___ Oriental Orthodox ___ Bereavement ___ Communion ___ Rylie exploration ___ _x__ Life review _x__ Prayer ___ Reconciliation ___ Sacrament of Sick _x__ Supportive presence ___ Wedding ___ Other (describe below) Pastoral Comments patient states that her day was difficult yesterday and that she could not sleep most of the night; pt was trying to sleep but did welcome the visit and asked for prayers; pt then states her other health issues and that she is in hospice care; offer of support, listening to concerns, review of her current support team; pt again just asks for a prayer
== END 2022-06-06 16:39 | disposition hospice, home (50) | DRG 469 ==
LOC: ED 06-06 00:54 → PCU 06-06 04:24
PROVIDERS: Admitting Provider Family Medicine; Emergency Provider Emergency Medicine; PCP Internal Medicine; Visit Provider Internal Medicine
DX: N17.9 Acute kidney failure, unspecified (principal); G20 Parkinson's disease; J44.9 Chronic obstructive pulmonary disease, unspecified; I11.0 Hypertensive heart disease with heart failure; I50.9 Heart failure, unspecified; Z68.41 Body mass index [BMI] 40.0-44.9, adult; G40.909 Epilepsy, unspecified, not intractable, without status epilepticus; E03.9 Hypothyroidism, unspecified; I95.9 Hypotension, unspecified; E86.0 Dehydration; E87.5 Hyperkalemia; G47.33 Obstructive sleep apnea (adult) (pediatric); I25.10 Atherosclerotic heart disease of native coronary artery without angina pectoris; E78.5 Hyperlipidemia, unspecified; F41.9 Anxiety disorder, unspecified; Z99.81 Dependence on supplemental oxygen; M62.81 Muscle weakness (generalized); F32.9 Major depressive disorder, single episode, unspecified; E66.9 Obesity, unspecified; Z20.822 Contact with and (suspected) exposure to COVID-19; Z79.01 Long term (current) use of anticoagulants; Z79.51 Long term (current) use of inhaled steroids; Z79.899 Other long term (current) drug therapy; Z87.891 Personal history of nicotine dependence; Z86.711 Personal history of pulmonary embolism; K21.9 Gastro-esophageal reflux disease without esophagitis; D64.9 Anemia, unspecified; K62.5 Hemorrhage of anus and rectum
CPT/HCPCS: 36415; 74176; 80048; 80053; 81001; 83540; 83550; 83605; 83735; 85025; 87040; 87086; 87088; 87428; 93005; 94640; 96360; 96361; 97802; 99221; 99251; 99285; J7030; J7040; A4216; G0378; G0463

== ENCOUNTER → 2022-06-05 | Outpatient (CLI) | payer MEDICAID, SELFPAY ==
[2022-06-05 16:50] LABS: Absolute Lymphocyte Count 2.21 X10^3/uL (0.83-4.51); Absolute Neutrophil Count 4.7 X10^3/uL (2.0-7.7); Basophil# 0.07 X10^3/uL; Basophil% 0.9 % (0-1); Eosinophil# 0.23 X10^3/uL; Hematocrit 31.4 % (37-47); Hemoglobin 9.5 g/dL (12.0-15.0); Lymphocyte # 2.21 X10^3/ul (0.83-4.51); Lymphocyte % 28.9 % (19-41); Mean Corp Hgb Conc 30.3 g/dL (32-36); Mean Corpuscular Hgb 24.6 pg (27.0-32.0); Mean Corpuscular Volume 81.3 fL (81-99); Mean Platelet Vol. 11.1 fl (6.2-12.0); Monocyte# 0.47 X10^3/uL; Monocyte% 6.1 % (0-10); NRBC Flagged by Analyzer 0 % (0-5); Neutrophil # 4.66 X10^3/uL (2.7-7.7); Neutrophil % 60.8 % (47-70); Platelet Count 331 K/mm3 (150-450); RBC Distribution Width CV 17.2 % (11.6-14.6); RBC Distribution Width SD 50.4 fl (35.1-43.9); Red Blood Count 3.86 M/mm3 (4.2-5.4); White Blood Count 7.7 K/mm3 (4.4-11.0)
[2022-06-05 18:37] LABS: ALB/GLOB Ratio 0.8 RATIO (0.9-2.4); AST(SGOT) 54 U/L (15-37); Alanine Aminotransfer ALT/SGPT 18 U/L (13-56); Albumin, Serum 3.8 g/dL (3.2-5.0); Alkaline Phosphatase 220 U/L (45-117); Anion Gap 7 (5-15); BUN 32 mg/dL (7-18); BUN/Creat Ratio 21.1 RATIO (10-20); Calcium,Total 9.7 mg/dL (8.5-10.1); Chloride 104 mmol/L (98-107); Creatinine, Serum 1.52 mg/dL (0.55-1.02); EST Glomerular Filtration Rate 38 mL/min (>60); Est Glom Filt Rate - Afr Amer 45 mL/min (>60); Globulin 4.6 g/dL (2.2-4.2); Glucose 112 mg/dL (74-106); Iron 39 ug/dL (50-170); Iron Binding Capacity,Total 418 ug/dL (250-450); PERCENT IRON SATURATION 9.3 % (15.0-55.0); Potassium 6.2 mmol/L (3.5-5.1); Protein, Total 8.4 g/dL (6.4-8.2); Sodium Level 136 mmol/L (136-145)
== END | disposition home or self-care (01) ==
LOC: BIMLAB 15:35
PROVIDERS: PCP Internal Medicine; Referring Provider Internal Medicine; Visit Provider Internal Medicine
DX: D64.9 Anemia, unspecified (principal); K62.5 Hemorrhage of anus and rectum
CPT/HCPCS: 83540; 85025; 36415; 83550; 80053

== ENCOUNTER → 2023-02-05 | Outpatient (CLI) | payer MEDICAID, SELFPAY ==
[2023-02-05 15:26] LABS: Anion Gap 3 (5-15); BUN 19 mg/dL (7-18); BUN/Creat Ratio 17.9 RATIO (10-20); Calcium,Total 8.5 mg/dL (8.5-10.1); Chloride 100 mmol/L (98-107); Creatinine, Serum 1.06 mg/dL (0.55-1.02); EST Glomerular Filtration Rate 57 mL/min (>60); Est Glom Filt Rate - Afr Amer 69 mL/min (>60); Glucose 144 mg/dL (74-106); Potassium 4.6 mmol/L (3.5-5.1); Sodium Level 137 mmol/L (136-145)
== END | disposition home or self-care (01) ==
PROVIDERS: PCP Internal Medicine
DX: I50.30 Unspecified diastolic (congestive) heart failure (principal)
CPT/HCPCS: 80048

== ENCOUNTER 2023-02-07 22:05 | Emergency (ER) | payer MEDICAID, SELFPAY ==
[2023-02-07 22:06] VITALS: BP 122/73; PULSE 72; RESP 14; TEMP 35.8; O2SAT 98; BMI 43.6
[2023-02-07 22:10] VITALS: O2SAT 99
--- NOTE | 2023-02-07 22:18 | CT_ITS ---
EXAM: CT CERVICAL SPINE WITHOUT INTRAVENOUS CONTRAST CLINICAL INDICATION: trauma . TECHNIQUE: Helically acquired images were obtained of the cervical spine without intravenous contrast. 2D reformatted images were reviewed. This CT exam was performed using one or more of the following dose reduction techniques: automated exposure control, adjustment of the mA and/or kV according to patient size, and/or use of iterative reconstruction technique. RADIATION DOSE: CTDIvol = 26.35 mGy, DLP = 527.97 mGy-cm COMPARISON: March 15, 2022 FINDINGS: VERTEBRAE: See below. 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 Straightening of the usual lordotic curvature. No significant spinal stenosis. SOFT TISSUES: Unremarkable. No prevertebral soft tissue swelling. LYMPH NODES: Unremarkable. No cervical adenopathy. LUNG APICES: Unremarkable as visualized. Clear. CT/Spine Cervical without Contras IMPRESSION: Stable congenital variation. No acute cervical spine abnormality. Electronically Signed: Laura Reed MD at 23:51 EDT ,
--- NOTE | 2023-02-07 22:18 | CT_ITS ---
EXAM: CT HEAD WITHOUT INTRAVENOUS CONTRAST CLINICAL INDICATION: trauma TECHNIQUE: Multiple axial images were obtained of the head without intravenous contrast. This CT exam was performed using one or more of the following dose reduction techniques: automated exposure control, adjustment of the mA and/or kV according to patient size, and/or use of iterative reconstruction technique. RADIATION DOSE: CTDIvol = 44.99 mGy, DLP = 829.85 mGy-cm. COMPARISON: April 01, 2027 FINDINGS: BRAIN AND EXTRA-AXIAL SPACES: Unremarkable. No intra- or extra-axial hemorrhage. No evidence of acute infarct. No intracranial mass or mass effect. There is preservation of the kramer/white matter interface. Posterior fossa structures are unremarkable. Ventricles are appropriate for age. No hydrocephalus. Basal cisterns are patent. BONES/JOINTS: Unremarkable. No discrete lytic or blastic abnormalities. SOFT TISSUES: Mild right supraorbital-forehead scalp contusion. SINUSES: Unremarkable as visualized. Clear. MASTOID AIR CELLS: Unremarkable. Clear. ORBITS: Visualized globes, extraocular muscles, optic nerves and retrobulbar fat appear unremarkable. SELLA: Mildly prominent empty sella, stable, usually normal variation for patient age. CT/Brain/Head without Contrast IMPRESSION: 1. No acute intracranial abnormality. 2. Mild scalp contusion. Electronically Signed: Laura Reed MD at 23:44 EDT ,
--- NOTE | 2023-02-07 22:31 | ED.VIS.FALL ---
HPI HPI - Fall History of Present Illness Chief Complaint: Fall Narrative Narrative: Patient presents after head injury and a hip injury after mechanical fall yesterday. She was at her assisted living and tripped. No loss consciousness. She has no neck pain no chest wall pain back pain or any other injuries she is still able to ambulate. She is chronically on oxygen. [facility] Medical History Abnormal cardiac enzyme level Acute and chronic respiratory failure Acute hyperkalemia Acute kidney injury Acute respiratory failure with hypoxia and hypercapnia LEIGH ANN (acute kidney injury) Anemia Anxiety and depression Back pain Bilateral peripheral pulmonary emboli BiPAP (biphasic positive airway pressure) dependence Breast infection Cancer Cardiology follow-up encounter Cardiopulmonary arrest with successful resuscitation Chest pain Chronic anemia Chronic narcotic dependence Compression fracture of T5 vertebra Compression fracture of T6 vertebra Concussion Congestive heart failure COPD (chronic obstructive pulmonary disease) COPD exacerbation Coronary artery disease CPAP (continuous positive airway pressure) dependence Debility Diastolic dysfunction DVT (deep vein thrombosis) in DVT (deep venous thrombosis) Essential hypertension Falls frequently Former smoker FTT (failure to thrive) in adult Generalized muscle weakness GERD (gastroesophageal reflux disease) H/O long-term (current) use of anticoagulants HLD (hyperlipidemia) Hx of cardiovascular stress test Hx of echocardiogram Hypothyroidism Morbid obesity MSSA (methicillin susceptible Staphylococcus aureus) pneumonia Myocardial infarct On home oxygen therapy STEPHANIE (obstructive sleep apnea) Pulmonary embolism Restrictive lung disease Right rib fracture Seizure disorder Seizures Sleep apnea Syncope and collapse TIA (transient ischemic attack) Wears dentures Wears glasses Home Medications clonazepam 1 mg tablet 1 mg PO BID anxiety 05/09/21 [History Last Taken 08/25/21] food supplemt, lactose-reduced (Ensure Compact oral liquid) 118 ml PO DAILY supplement 05/24/21 [History Last Taken 08/25/21] mirtazapine 7.5 mg tablet 7.5 mg PO QHS sleep 08/26/21 [History Last Taken Unknown] carbidopa ER 50 mg-levodopa 200 mg tablet,extended release 1 tab PO TID #90 tabs 06/05/22 [Rx Last Taken Unknown] metoprolol succinate 100 mg tablet,extended release 24 hr 50 mg (1/2 x 100 mg) PO DAILY blood pressure #14 tabs 06/06/22 [Rx Last Taken Unknown] apixaban 5 mg tablet (Eliquis) 5 mg PO BID #60 tabs 08/04/22 [Rx Last Taken Unknown] levetiracetam 500 mg tablet (Keppra) 500 mg PO BID seizures #60 tabs 08/11/22 [Rx Last Taken Unknown] albuterol 90 mcg/actuation aerosol inhaler mcg inhalation 08/24/22 [History Last Taken Unknown] esomeprazole magnesium 20 mg capsule,delayed release 20 mg PO DAILY 08/24/22 [History Last Taken Unknown] furosemide 20 mg tablet (Lasix) 20 mg PO DAILY 08/24/22 [History Last Taken Unknown] lorazepam 0.5 mg tablet (Ativan) 0.5 mg PO DAILY PRN 08/24/22 [History Last Taken Unknown] losartan 100 mg tablet (Cozaar) 100 mg PO DAILY 08/24/22 [History Last Taken Unknown] methadone 5 mg tablet 7.5 mg PO BID 08/24/22 [History Last Taken Unknown] ondansetron HCl 4 mg tablet 4 mg PO Q8H 08/24/22 [History Last Taken Unknown] oxycodone 10 mg tablet 10 mg PO BID PRN 08/24/22 [History Last Taken Unknown] polyethylene glycol 3350 17 gram/dose oral powder (Miralax) 4 g PO DAILY 08/24/22 [History Last Taken Unknown] sennosides 8.6 mg tablet (senna) 8.6 mg PO BID 08/24/22 [History Last Taken Unknown] Allergy/AdvReac Type Severity Reaction Status Date / Time aspirin Allergy Hives Verified 02/07/23 22:09 dicyclomine Allergy Itching Verified 02/07/23 22:09 ibuprofen Allergy Hives Verified 02/07/23 22:09 ketorolac tromethamine Allergy Angioedema Verified 02/07/23 22:09 [From Toradol] nut - unspecified Allergy Hives Verified 02/07/23 22:09 Penicillins [PCN] Allergy Hives Verified 02/07/23 22:09 tramadol HCl [From Ultram] Allergy Angioedema Verified 02/07/23 22:09 Family History Brother Myocardial infarction Asthma Mental disorder Psychiatric care Suicide attempt Father Colon cancer Brother Mental disorder Aunt Parkinson disease Sister Breast cancer Cervical cancer Ovarian cancer Sister Cervical cancer Ovarian cancer Mother Cancer leukemia History of blood clots Hypertension Surgical History History of cardiac catheterization History of cholecystectomy History of esophagogastroduodenoscopy (EGD) History of hysterectomy History of left breast biopsy History of left heart catheterization (LHC) (~04/22/21) History of lumpectomy of left breast Hx of appendectomy S/P lumpectomy, left breast Social History household members: none current occupational status: unemployed Smoking Status: Former smoker quit date: 01/21/16 pack-years: 32 Electronic Cigarette Use: not used second hand exposure: Yes alcohol intake: never substance use type: does not use do you feel safe at home: No ROS ROS ED ROS Narrative Social: Lives in assisted living Medications: Reviewed, quite extensive I reviewed her ECF paperwork Past medical history: Reviewed, it is quite extensive I reviewed in [employer] and ECF paperwork Review of systems General: There is a forehead injury. No loss of consciousness HEENT: No other facial injury Neck: No neck pain Cardiovascular: Patient denies any chest pain or palpitations Chest wall: No chest wall contusions Respiratory: Chronic dyspnea no worse than normal. GI: There is no nausea vomiting diarrhea or abdominal pain, no abdominal wall contusions Skin: No lacerations or abrasions Neurological: Patient has no memory loss, confusion, or any focal weakness Psychiatric: No recent behavioral changes Back: No back pain, no problems with ambulation Musculoskeletal: Right buttock contusion EXAM Physical Exam Narrative Exam Narrative: Physical exam Vitals reviewed General: Does not appear in significant distress HEENT: Right forehead abrasion Head: No head injury Eyes: Extraocular movements intact Neck: No C-spine tenderness with full range of motion Heart: Regular rate normal pulses Chest wall: No chest wall pain Lungs coarse lungs. She has no respiratory distress. GI: Abdomen is soft and nontender there is no mass no guarding no abdominal wall contusion : Stable pelvis Musculoskeletal: Ecchymosis over the right buttock. No obvious pelvis tenderness. No deformity of the hip or pain with logrolling or flexion and extension. Skin: No abrasions or laceration Neurological: Patient is alert and oriented with no focal deficits Const Vital Signs: 02/07/23 22:06 02/07/23 22:10 Temperature 96.5 F L Temperature Source Temporal Pulse Rate 72 Respiratory Rate 14 Respiratory Effort Normal Non-Labored Respiratory Depth Normal Respiratory Pattern Normal Blood Pressure 122/73 H Blood Pressure Mean 89 Pulse Ox 98 99 Oxygen Delivery Method Nasal Cannula Nasal Cannula Oxygen Flow Rate (L/min) 3 3 MDM MDM MDM Narrative Medical decision making narrative: Right hip x-ray does not show any fracture this is read by me CT is abnormal. Patient had a mechanical fall, I believe she is stable for discharge. I thought about a head injury and intracranial bleed however these are unfounded I thought about C-spine injury however this is unfounded. She does not have any pelvis fracture or hip fracture. She is still able to ambulate. This was a mechanical fall therefore the patient does not meet criteria for blood work at this time. She appears well. She does not meet criteria for admission, she is still able to ambulate at her assisted living and she does have some help there. I talked her about all this and she understands. She will be discharged in stable condition. She was given analgesia in the emergency department. Discharge Plan Triage Chief Complaint: Fall ED Provider: Kee Funk Dx/Rx/DC Orders Clinical Impression: Concussion without loss of consciousness, Contusion of buttock, Fall Instructions: Preventing Falls: Staying Active Prescriptions: No Action Ensure Compact Liquid 118 ml PO DAILY Patient Comments: 2 ENSURE'S DAILY sennosides [senna] 8.6 mg tablet 8.6 mg PO BID methadone 5 mg tablet 7.5 mg PO BID albuterol 90 mcg/actuation aerosol inhalation Rx Instructions: 2 puff PRN twice daily as needed for SOB ondansetron HCl 4 mg tablet 4 mg PO Q8H polyethylene glycol 3350 [Miralax] 17 gram/dose powder 4 g PO DAILY losartan [Cozaar] 100 mg tablet 100 mg PO DAILY furosemide [Lasix] 20 mg tablet 20 mg PO DAILY oxycodone 10 mg tablet 10 mg PO BID PRN Rx Instructions: one tab q4hrs routine and q1hr PRN for pain/SOB esomeprazole magnesium 20 mg capsule,delayed release(DR/EC) 20 mg PO DAILY lorazepam [Ativan] 0.5 mg tablet 0.5 mg PO DAILY PRN Rx Instructions: take one tablet q12hrs routinely and q4hrs prn anxiety clonazepam 1 mg tablet 1 mg PO BID mirtazapine 7.5 mg tablet 7.5 mg PO QHS Patient Comments: TAKE 1 TABLET BY MOUTH AT BEDTIME metoprolol succinate 100 mg tablet extended release 24 hr 50 mg PO DAILY Qty: 14 0RF Patient Comments: TAKE (1) TABLET BY MOUTH ONCE DAILY Rx Instructions: Hold for heart less than 60 or systolic blood pressure less than 100 mmHg. carbidopa-levodopa 50-200 mg tablet extended release 1 tab PO TID Qty: 90 3RF Rx Instructions: 1 TAB orally three times a day Eliquis 5 mg tablet 5 mg PO BID Qty: 60 1RF levetiracetam [Keppra] 500 mg tablet 500 mg PO BID Qty: 60 0RF Primary Care Provider: Marilee Yu Referrals: Marilee Yu MD [Primary Care Provider] - 3-5 Days Disposition Disposition: Home, Self Care
--- NOTE | 2023-02-07 22:40 | RAD_ITS ---
EXAM: XR RIGHT HIP WITH PELVIS WHEN PERFORMED, 2 OR 3 VIEWS CLINICAL INDICATION: trauma TECHNIQUE: AP pelvis and 2 views of the right hip COMPARISON: No relevant prior studies available. FINDINGS: BONES/JOINTS: Minimal osteophyte at the right femoral periarticular head. Right superior and medial hip joint appear intact. No displaced fracture. No destructive or sclerotic lesions. Note that overlapping bowel shadows may however obscure fine detail. Sacroiliac joint is unremarkable. No widening of the pubic symphysis. SOFT TISSUES: Unremarkable. No soft tissue swelling or gas. GASTROINTESTINAL TRACT: Moderate stool in the rectum obscures visualization of sacrococcygeal junction. RAD/HIP, UNI W/ Pelvis 2-3 Views IMPRESSION: Minimal degenerative changes. No acute findings. Electronically Signed: Laura Reed MD at 23:55 EDT ,
[2023-02-07] MEDS: oxyCODONE 5 MG Tablet PO (22:47)
[2023-02-08 00:14] VITALS: BP 133/71; PULSE 70; RESP 14; O2SAT 100
[2023-02-08] MEDS: oxyCODONE 5 MG Tablet PO (00:19)
--- NOTE | 2023-02-08 00:25 | ED.RN ---
report called to torrey valles
== END 2023-02-08 02:38 | disposition home or self-care (01) ==
PROVIDERS: Emergency Provider Emergency Medicine; PCP Internal Medicine; Visit Provider Emergency Medicine
DX: S06.0X0A Concussion without loss of consciousness, initial encounter (principal); J44.9 Chronic obstructive pulmonary disease, unspecified; I11.0 Hypertensive heart disease with heart failure; I50.9 Heart failure, unspecified; S30.0XXA Contusion of lower back and pelvis, initial encounter; W18.09XA Striking against other object with subsequent fall, initial encounter; Y92.099 Unspecified place in other non-institutional residence as the place of occurrence of the external cause; I25.10 Atherosclerotic heart disease of native coronary artery without angina pectoris; E78.5 Hyperlipidemia, unspecified; Z99.81 Dependence on supplemental oxygen; Z79.01 Long term (current) use of anticoagulants; Z79.899 Other long term (current) drug therapy; Z87.891 Personal history of nicotine dependence
CPT/HCPCS: 70450; 72125; 73502; 99284

== ENCOUNTER 2023-07-02 20:03 | Emergency (ER) | payer MEDICAID, SELFPAY ==
[2023-07-02 20:05] VITALS: BP 128/70; PULSE 69; RESP 15; TEMP 36.4; O2SAT 96; BMI 42.7
--- NOTE | 2023-07-02 21:26 | CT_ITS ---
EXAM: CT Abdomen And Pelvis W/O Contrast Injection HISTORY: Kidney Stone lt flank pain, hx htn, isauro, hyster, appy TECHNIQUE: Routine protocol CT abdomen and pelvis. IV Contrast: None.. Oral contrast: None. RADIATION DOSAGE (If Supplied By Facility): CTDIvol = ( 24.04 ) mGy, DLP = ( 1542.27 ) mGycm Individualized dose optimization techniques were used for this CT. COMPARISON: CT abdomen and pelvis 06/06/2022. LIMITATIONS: None. FINDINGS: LOWER CHEST: Included lung bases are clear. LIVER: Fatty infiltration. GALLBLADDER AND BILIARY TREE: The gallbladder is surgically absent. PANCREAS: Grossly unremarkable. SPLEEN: Grossly unremarkable. ADRENAL GLANDS: Grossly unremarkable. KIDNEYS AND URETERS: No calculi demonstrated. No hydronephrosis. Small cyst in the left kidney. PERITONEUM: No free air. No free fluid. BOWEL: Scattered diverticula in the colon. No bowel obstruction. Moderate amount of stool in the colon APPENDIX: Not identified. Surgically absent. VESSELS: Abdominal aorta is normal caliber. REPRODUCTIVE ORGANS: Uterus is not identified. URINARY BLADDER: Grossly unremarkable. ABDOMINAL WALL: Unremarkable. BONES: No acute abnormalities. Degenerative changes in the lower lumbar spine. CT/Abdomen/Pelvis without Cont IMPRESSION: Colonic diverticulosis without evidence of acute diverticulitis. No acute findings. Electronically Signed: Olive Vargas MD at 22:38 EST ,
--- NOTE | 2023-07-02 21:27 | EDS_ITS ---
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 She states over the last 2 days she felt very weak and tired but not necessarily more short of breath. She is not having chest pain. She is, however having left flank pain. She denies any bleeding diathesis except for a nosebleed the other day. She states when her platelets get low she usually has nosebleeds. She denies any black or tarry stool. No blood in her urine/hematuria. She presents because she went and saw her primary care provider today, and when she returned to where she lives at [facility], she was told that her hemoglobin was low at 6.5. She is also having the left flank pain. She denies any exacerbating or alleviating factors to her left flank pain. [facility] Medical History Acute and chronic respiratory failure Acute respiratory failure with hypoxia and hypercapnia Anemia Anxiety and depression Back pain Bilateral peripheral pulmonary emboli BiPAP (biphasic positive airway pressure) dependence Breast infection Cancer Cardiology follow-up encounter Cardiopulmonary arrest with successful resuscitation Chest pain Chronic anemia Chronic narcotic dependence Compression fracture of T5 vertebra Compression fracture of T6 vertebra Concussion Congestive heart failure COPD (chronic obstructive pulmonary disease) Coronary artery disease CPAP (continuous positive airway pressure) dependence Debility Diastolic dysfunction DVT (deep vein thrombosis) in DVT (deep venous thrombosis) Essential hypertension Falls frequently Former smoker FTT (failure to thrive) in adult Generalized muscle weakness GERD (gastroesophageal reflux disease) H/O long-term (current) use of anticoagulants HLD (hyperlipidemia) Hx of cardiovascular stress test Hx of echocardiogram Hypothyroidism Morbid obesity MSSA (methicillin susceptible Staphylococcus aureus) pneumonia Myocardial infarct On home oxygen therapy STEPHANIE (obstructive sleep apnea) Pulmonary embolism Restrictive lung disease Right rib fracture Seizures Sleep apnea Syncope and collapse TIA (transient ischemic attack) Wears dentures Wears glasses Home Medications clonazepam 1 mg tablet 1 mg PO BID anxiety 05/09/21 [History Last Taken 08/25/21] mirtazapine 7.5 mg tablet 7.5 mg PO QHS sleep 08/26/21 [History Last Taken Unknown] metoprolol succinate 100 mg tablet,extended release 24 hr 50 mg (1/2 x 100 mg) PO DAILY blood pressure #14 tabs 06/06/22 [Rx Last Taken Unknown] apixaban 5 mg tablet (Eliquis) 5 mg PO BID #60 tabs 08/04/22 [Rx Last Taken Unknown] albuterol 90 mcg/actuation aerosol inhaler 90 mcg inhalation BID PRN shortness of breath 08/24/22 [History Last Taken Unknown] furosemide 20 mg tablet (Lasix) 20 mg PO DAILY 08/24/22 [History Last Taken Unknown] lorazepam 0.5 mg tablet (Ativan) 1 mg PO Q6H 08/24/22 [History Last Taken Unknown] losartan 100 mg tablet (Cozaar) 100 mg PO DAILY 08/24/22 [History Last Taken Unknown] methadone 5 mg tablet 10 mg PO BID 08/24/22 [History Last Taken Unknown] ondansetron HCl 4 mg tablet 4 mg PO Q8H 08/24/22 [History Last Taken Unknown] oxycodone 10 mg tablet 15 mg PO Q4H 08/24/22 [History Last Taken Unknown] polyethylene glycol 3350 17 gram/dose oral powder (Miralax) 4 g PO DAILY 08/24/22 [History Last Taken Unknown] sennosides 8.6 mg tablet (senna) 8.6 mg PO BID 08/24/22 [History Last Taken Unknown] apixaban 5 mg tablet (Eliquis) 5 mg PO BID 07/02/23 [History Last Taken Unknown] carbidopa ER 50 mg-levodopa 200 mg tablet,extended release 1 tab PO QHS 07/02/23 [History Last Taken Unknown] carbidopa ER 50 mg-levodopa 200 mg tablet,extended release 2 tab PO BID 07/02/23 [History Last Taken Unknown] furosemide 20 mg tablet (Lasix) 10 mg PO QODAY 07/02/23 [History Last Taken Unknown] levetiracetam 500 mg tablet (Keppra) 500 mg PO BID 07/02/23 [History Last Taken Unknown] omeprazole 20 mg capsule,delayed release 20 mg PO DAILY 07/02/23 [History Last Taken Unknown] venlafaxine 150 mg capsule,extended release 24 hr (Effexor XR) 150 mg PO DAILY 07/02/23 [History Last Taken Unknown] Allergy/AdvReac Type Severity Reaction Status Date / Time aspirin Allergy Hives Verified 07/02/23 21:43 dicyclomine Allergy Itching Verified 07/02/23 21:43 ibuprofen Allergy Hives Verified 07/02/23 21:43 ketorolac tromethamine Allergy Angioedema Verified 07/02/23 21:43 [From Toradol] nut - unspecified Allergy Hives Verified 07/02/23 21:43 Penicillins [PCN] Allergy Hives Verified 07/02/23 21:43 tramadol HCl [From Ultram] Allergy Angioedema Verified 07/02/23 21:43 Family History Brother Myocardial infarction Asthma Mental disorder Psychiatric care Suicide attempt Father Colon cancer Brother Mental disorder Aunt Parkinson disease Sister Breast cancer Cervical cancer Ovarian cancer Sister Cervical cancer Ovarian cancer Mother Cancer leukemia History of blood clots Hypertension Surgical History History of cardiac catheterization History of cholecystectomy History of esophagogastroduodenoscopy (EGD) History of hysterectomy History of left breast biopsy History of left heart catheterization (LHC) (~04/22/21) History of lumpectomy of left breast Hx of appendectomy S/P lumpectomy, left breast Social History household members: other details: assisted living housing: assisted living facility current occupational status: unemployed Smoking Status: Former smoker quit date: 01/21/16 pack-years: 32 Electronic Cigarette Use: not used second hand exposure: Yes alcohol intake: never substance use type: does not use do you feel safe at home: No ROS ROS ED ROS Narrative Constitutional: No fever, no chills. Positive fatigue and generalized weakness. HEENT: No sore throat. No neck pain. No loss of vision. No rhinorrhea. Positive nosebleeds. Cardiovascular: No chest pain. No palpitations. No pedal edema. Respiratory: No cough, chronic shortness of breath. Abdominal: No abdominal pain. No nausea. No vomiting. Genitourinary: No dysuria. No hematuria. Positive left flank pain. Musculoskeletal: No myalgias. No arthralgias. Neurologic: No headaches. No dizziness. No lightheadedness. Skin: No rash. No change in color. Psychiatric: No depression. No anxiety. EXAM Physical Exam Narrative Exam Narrative: Afebrile. Vital signs noted. No acute distress. No bleeding diathesis. HEENT: Normocephalic. Atraumatic. PERRL, EOMI. Neck soft and supple. No point tenderness or step off. Cardiovascular: Regular rate and rhythm. No murmurs, rubs, or gallops appreciated. Respiratory: No tachypnea. Lungs clear to auscultation bilaterally. Gastrointestinal: Abdomen soft, obese, nontender, with normoactive bowel sounds. No rebound or guarding. Neurological: Awake. Alert. Nonfocal, nonlateralizing. Skin: No rash. Normal color. Positive pallor. Musculoskeletal: No pedal edema. Full range of motion extremities. Const Vital Signs: 07/02/23 20:05 Temperature 97.5 F L Temperature Source Temporal Pulse Rate 69 Respiratory Rate 15 Blood Pressure 128/70 H Blood Pressure Mean 89 Pulse Ox 96 Oxygen Delivery Method Nasal Cannula Oxygen Flow Rate (L/min) 3 MDM MDM MDM Narrative Medical decision making narrative: In the differential diagnosis is anemia requiring transfusions, ureterolithiasis versus pyelonephritis. Her generalized weakness may also be from her anemia as well. Dehydration is in the differential as well. I reviewed her laboratory work and she has normal white count of 9.6. Hemoglobin 7.8 here, not 6.5. I do not feel she requires emergent transfusion. I reviewed her laboratory work and her BMP shows a sodium of 135 which I think is nonspecific, potassium normal at 4.1, glucose appropriately elevated at 100. Creatinine is slightly elevated at 1.09. Regarding her flank pain, her urinalysis is negative for infection with negative nitrites and 0-5 WBCs, within normal limits. I do not feel antibiotics are indicated. I reviewed her CT imaging and the radiology report which shows no evidence of ureterolithiasis or hydronephrosis, no cause for her reported left flank pain. As she states she was here mainly for transfusion because her hemoglobin was low, I feel she can be discharged back to assisted living at [facility] as her hemoglobin is 7.8 here today. She will follow-up with her primary care provider. Return instructions were reviewed. Disposition is discharged in stable condition. History & Record Review Discussion w/independent historian: Patient Additional record(s) reviewed:: Prior ED visit Lab Data Attestation: I reviewed the patient's lab results. Labs: Laboratory Results - last 24 hr 07/02/23 07/02/23 21:48 21:56 WBC 9.6 RBC 3.57 L Hgb 7.8 L Hct 27.0 L MCV 75.6 L MCH 21.8 L MCHC 28.9 L RDW Std Deviation 43.0 RDW Coeff of Immanuel 15.8 H Plt Count 266 MPV 10.3 Immature Gran % (Auto) 0.200 Neut % (Auto) 63.5 Lymph % (Auto) 24.9 [place] % (Auto) 7.9 Eos % (Auto) 3.1 Baso % (Auto) 0.4 Absolute Neuts (auto) 6.1 Absolute Lymphs (auto) 2.40 Nucleated RBC % 0 Sodium 135 L Potassium 4.1 Chloride 101 Carbon Dioxide 34.0 H Anion Gap 0 L BUN 16 Creatinine 1.09 H Estim Creat Clear Calc 53.31 Est GFR (MDRD) Af Amer 66 Est GFR (MDRD) Non-Af 55 L BUN/Creatinine Ratio 14.7 Glucose 100 Calcium 8.9 Urine Color Yellow Urine Clarity Clear Urine pH 6.0 Ur Specific Tell 1.010 Urine Protein Negative Urine Glucose (UA) Normal Urine Ketones Negative Urine Occult Blood 10 H Urine Nitrite Negative Urine Bilirubin Negative Urine Urobilinogen Normal Ur Leukocyte Esterase 25 H Urine RBC 0 SEEN Urine WBC 0-5 SEEN Ur Squamous Epith Cells 0 SEEN Urine Bacteria 0 SEEN Urine Mucus 0 SEEN Blood Type A POSITIVE Antibody Screen NEGATIVE Radiography Diagnostic Testing: Clinical Impression(s) from Imaging Studies Abdomen/Pelvis CT 07/02/23 21:26 IMPRESSION: Colonic diverticulosis without evidence of acute diverticulitis. No acute findings. Electronically Signed: Olive Vargas MD at 22:38 EST , Discharge Plan Triage Chief Complaint: Abn Labs ED Provider: Callum Knutson Dx/Rx/DC Orders Clinical Impression: Anemia, Flank pain, COPD (chronic obstructive pulmonary disease) Instructions: ED Anemia, Type Not Specified (Adult), ED Flank Pain, Uncertain Cause, ED Pain, Acute, Uncertain Cause Prescriptions: No Action sennosides [senna] 8.6 mg tablet 8.6 mg PO BID methadone 5 mg tablet 10 mg PO BID albuterol 90 mcg/actuation aerosol 90 mcg inhalation BID PRN Rx Instructions: 2 puff PRN twice daily as needed for SOB ondansetron HCl 4 mg tablet 4 mg PO Q8H polyethylene glycol 3350 [Miralax] 17 gram/dose powder 4 g PO DAILY losartan [Cozaar] 100 mg tablet 100 mg PO DAILY furosemide [Lasix] 20 mg tablet 20 mg PO DAILY oxycodone 10 mg tablet 15 mg PO Q4H Rx Instructions: one tab q4hrs routine and q1hr PRN for pain/SOB lorazepam [Ativan] 0.5 mg tablet 1 mg PO Q6H Rx Instructions: take one tablet q12hrs routinely and q4hrs prn anxiety clonazepam 1 mg tablet 1 mg PO BID mirtazapine 7.5 mg tablet 7.5 mg PO QHS Patient Comments: TAKE 1 TABLET BY MOUTH AT BEDTIME metoprolol succinate 100 mg tablet extended release 24 hr 50 mg PO DAILY Qty: 14 0RF Patient Comments: TAKE (1) TABLET BY MOUTH ONCE DAILY Rx Instructions: Hold for heart less than 60 or systolic blood pressure less than 100 mmHg. carbidopa-levodopa 50-200 mg tablet extended release 1 tab PO QHS Eliquis 5 mg tablet 5 mg PO BID furosemide [Lasix] 20 mg tablet 10 mg PO QODAY levetiracetam [Keppra] 500 mg tablet 500 mg PO BID omeprazole 20 mg capsule,delayed release(DR/EC) 20 mg PO DAILY venlafaxine [Effexor XR] 150 mg capsule,extended release 24hr 150 mg PO DAILY carbidopa-levodopa 50-200 mg tablet extended release 2 tab PO BID Rx Instructions: 1 TAB orally three times a day Eliquis 5 mg tablet 5 mg PO BID Qty: 60 1RF Primary Care Provider: Marilee Yu Referrals: Marilee Yu MD [Primary Care Provider] - As soon as possible Activity Restrictions/Additional Instructions: Your hemoglobin was 7.8 today. You do not require transfusions from the emergency department. Disposition Disposition: Assisted Living Discharge Location: [facility]
[2023-07-02] MEDS: 0.9% Normal Saline (1000mL) 1,000 ML 250 ML IV (21:51)
[2023-07-02 22:04] VITALS: RESP 16
[2023-07-02 22:08] LABS: Bacteria 0 SEEN /hpf (None Seen); Mucous, Urine 0 SEEN /hpf (<or=2+); Red Blood Cells-Urine 0 SEEN /hpf (0-5); Squamous Epithelial Cells - UA 0 SEEN /hpf (5-10)
[2023-07-02 22:10] LABS: Absolute Neutrophil Count 6.1 X10^3/uL (2.0-7.7); Basophil# 0.04 X10^3/uL; Basophil% 0.4 % (0-1); Eosinophils% 3.1 % (0-5); Hemoglobin 7.8 g/dL (12.0-15.0); Lymphocyte % 24.9 % (19-41); Mean Corp Hgb Conc 28.9 g/dL (32-36); Mean Corpuscular Hgb 21.8 pg (27.0-32.0); Mean Corpuscular Volume 75.6 fL (81-99); Mean Platelet Vol. 10.3 fl (6.2-12.0); Monocyte# 0.76 X10^3/uL; Monocyte% 7.9 % (0-10); NRBC Flagged by Analyzer 0 % (0-5); Neutrophil % 63.5 % (47-70); Platelet Count 266 K/mm3 (150-450); RBC Distribution Width CV 15.8 % (11.6-14.6); Red Blood Count 3.57 M/mm3 (4.2-5.4); White Blood Count 9.6 K/mm3 (4.4-11.0)
[2023-07-02 22:11] LABS: Color, Urine Yellow (Yellow); Glucose, Dipstick Normal (Normal); Ketone-Dipstick Negative (Negative); Leukocyte Esterase-Dipstick 25 /ul (Negative); Nitrite-Dipstick Negative (Negative); Occult Blood-Urine 10 /ul (Negative); Protein-Dipstick Negative (Negative); Urine Bilirubin Dipstick Negative (Negative); Urine Clarity Clear (Clear); Urine Urobilinogen Normal (Normal)
[2023-07-02 22:16] LABS: White Blood Cells 0-5 SEEN /hpf (0-5)
[2023-07-02 22:25] LABS: Anion Gap 0 (5-15); BUN 16 mg/dL (7-18); BUN/Creat Ratio 14.7 RATIO (10-20); Calcium,Total 8.9 mg/dL (8.5-10.1); Chloride 101 mmol/L (98-107); Creatinine, Serum 1.09 mg/dL (0.55-1.02); EST Glomerular Filtration Rate 55 mL/min (>60); Est Glom Filt Rate - Afr Amer 66 mL/min (>60); Estimated Creatinine Clearance 53.31 ml/min; Glucose 100 mg/dL (74-106); Potassium 4.1 mmol/L (3.5-5.1); Sodium Level 135 mmol/L (136-145)
--- NOTE | 2023-07-02 23:24 | ED.RN ---
attempted x2 to call report to Farhat Velasco and was unsuccessful having anyone to pickle cutter the phone.
[2023-07-02 23:45] VITALS: BP 122/60; PULSE 68; RESP 18; O2SAT 96
--- NOTE | 2023-07-03 01:37 | ED.RN ---
Pt rang call light. She questions when squad is coming. Healthcare Specialist begins to tell patient when squad is coming, that she had just called within the past 5 minutes for an ETA, and patient begins cussing at attendance secretary, yelling at her you don't fucking care about me. This nurse enters room to try to de-escalate patient. Pt remains yelling and cussing at staff, stating I have been here complaining about pain and no one fucking cares. You just keep lying to me about when they are coming. I could have had my family take me home by now. Asked pt if she had informed her nurse about pain, she states yes. Patient continues to yell and swear vulgarities at nurse about wait time and pain. Informed pt this nurse would ask for medication. Dr. Hilliard notified and new order for morphine given. Questioned patient about finding a family member for a ride, she states that she is unable to get a hold of anyone. She apologizes to this nurse, this nurse validated feelings and frustrations, and encouraged pt to use call light with any other needs or concerns.
[2023-07-03] MEDS: Morphine 4 MG/ML Syringe IV (01:46)
--- NOTE | 2023-07-03 02:06 | ED.RN ---
pt did inform this nurse that she has pain all the time,but never once asked for anything for pain. pt was pleasant and empathy given that she had to wait for the squad. placed a blanket on her and asked if she wanted the lights out and she said,yes. so light were turned off so she could rest.
== END 2023-07-03 02:20 | disposition home or self-care (01) ==
PROVIDERS: Emergency Provider Emergency Medicine; PCP Internal Medicine; Referring Provider Emergency Medicine; Visit Provider Emergency Medicine
DX: D64.9 Anemia, unspecified (principal); J44.9 Chronic obstructive pulmonary disease, unspecified; I11.0 Hypertensive heart disease with heart failure; I50.9 Heart failure, unspecified; I25.10 Atherosclerotic heart disease of native coronary artery without angina pectoris; R53.1 Weakness; R10.9 Unspecified abdominal pain; E78.5 Hyperlipidemia, unspecified; Z99.81 Dependence on supplemental oxygen; Z79.01 Long term (current) use of anticoagulants; Z79.899 Other long term (current) drug therapy; Z87.891 Personal history of nicotine dependence
CPT/HCPCS: 74176; 80048; 81001; 85025; 86850; 86900; 86901; 96361; 96374; 99283; J7030; A4216

== ENCOUNTER → 2024-01-15 | Outpatient (CLI) | payer MEDICAID, SELFPAY ==
[2024-01-15 17:01] LABS: Vitamin B12 539 pg/mL (211-911); Vitamin D,25 Hydroxy 13.9 ng/mL
[2024-01-15 17:02] LABS: Absolute Lymphocyte Count 1.75 X10^3/uL (0.83-4.51); Absolute Neutrophil Count 3.6 X10^3/uL (2.0-7.7); Basophil# 0.02 X10^3/uL; Basophil% 0.3 % (0-1); Eosinophil# 0.22 X10^3/uL; Eosinophils% 3.6 % (0-5); Hematocrit 24.2 % (37-47); Hemoglobin 6.4 g/dL (12.0-15.0); Lymphocyte # 1.75 X10^3/ul (0.83-4.51); Lymphocyte % 28.8 % (19-41); Mean Corp Hgb Conc 26.4 g/dL (32-36); Mean Corpuscular Hgb 19.9 pg (27.0-32.0); Mean Corpuscular Volume 75.4 fL (81-99); Mean Platelet Vol. 10.6 fl (6.2-12.0); Monocyte# 0.46 X10^3/uL; Monocyte% 7.6 % (0-10); NRBC Flagged by Analyzer 0 % (0-5); Neutrophil # 3.61 X10^3/uL (2.7-7.7); Neutrophil % 59.5 % (47-70); Platelet Count 224 K/mm3 (150-450); RBC Distribution Width CV 16.9 % (11.6-14.6); RBC Distribution Width SD 46.2 fl (35.1-43.9); Red Blood Count 3.21 M/mm3 (4.2-5.4); White Blood Count 6.1 K/mm3 (4.4-11.0)
[2024-01-15 17:04] LABS: ALB/GLOB Ratio 0.7 RATIO (0.9-2.4); AST(SGOT) 20 U/L (15-37); Alanine Aminotransfer ALT/SGPT 14 U/L (13-56); Albumin, Serum 3.4 g/dL (3.2-5.0); Alkaline Phosphatase 123 U/L (45-117); Anion Gap 3 (5-15); BUN 13 mg/dL (7-18); BUN/Creat Ratio 12.9 RATIO (10-20); Calcium,Total 8.9 mg/dL (8.5-10.1); Chloride 99 mmol/L (98-107); Creatinine, Serum 1.01 mg/dL (0.55-1.02); EST Glomerular Filtration Rate 60 mL/min (>60); Est Glom Filt Rate - Afr Amer 72 mL/min (>60); Ferritin 5 ng/mL (8-252); Globulin 4.7 g/dL (2.2-4.2); Glucose 95 mg/dL (74-106); Iron 20 ug/dL (50-170); Iron Binding Capacity,Total 441 ug/dL (250-450); PERCENT IRON SATURATION 4.5 % (15.0-55.0); Potassium 4.3 mmol/L (3.5-5.1); Protein, Total 8.1 g/dL (6.4-8.2); Sodium Level 136 mmol/L (136-145)
== END | disposition home or self-care (01) ==
LOC: BIMLAB 14:27
PROVIDERS: PCP Internal Medicine; Visit Provider Internal Medicine
DX: I10 Essential (primary) hypertension (principal); E61.1 Iron deficiency; D64.9 Anemia, unspecified; F41.8 Other specified anxiety disorders
CPT/HCPCS: 36415; 80053; 82306; 82607; 82728; 83540; 83550; 85025

== ENCOUNTER → 2024-02-07 | Outpatient (CLI) | payer MEDICAID, SELFPAY ==
--- NOTE | 2024-02-07 10:45 | ECHOCS_ITS ---
Reason For Study: Dyspnea/SOB Procedure This was a 2D Doppler, Color Flow transthoracic echocardiogram. The study was technically difficult. Contrast injection was performed. Exam performed in department. Left Ventricle Normal LV size. The estimated ejection fraction is 55 %. No regional wall motion abnormalities noted. Right Ventricle Normal RV size. Normal systolic function. Atria The left atrium is moderately enlarged. The right atrium is mildly enlarged. Mitral Valve Normal mitral valve. Tricuspid Valve Normal tricuspid valve. Mild to moderate (1-2+) tricuspid valve insufficiency. Pulmonary artery systolic pressure is 40 mmHg. Pulmonic Valve The pulmonic valve is not well visualized. Great Vessels Mildly dilated aortic root. Pericardium/Pleural No pericardial effusion. Medication 22 gauge I.V. with prn adaptor inserted into right arm. Diluted definity 2ml given slow IV push to enhance endocardial definition. MMode/2D Measurements & Calculations LVIDd: 5.8 cm IVSd: 1.1 cm Ao root diam: 4.1 cm LVIDs: 4.2 cm LVPWd: 1.3 cm LA dimension: 4.3 cm RVDd: 4.5 cm FS: 27.9 % LAV(MOD-bp): 96.2 ml LA A4 area: 29.7 cm2 RA A4 area: 22.5 cm2 LAV(MOD-bp) Indexed: 43.5 ml/m2 LAV(MOD-sp2): 77.2 ml LAV(MOD-sp4): 93.6 ml TAPSE: 2.5 cm Time Measurements MV dec time: 0.21 sec Doppler Measurements & Calculations MV E max rick: 98.5 cm/sec Lat Peak E' Rick: 16.4 cm/sec Med Peak E' Rick: 7.3 cm/sec MV A max rick: 81.7 cm/sec E/E' lat: 6.0 E/E' med: 13.4 MV E/A: 1.2 MV V2 max: 118.3 cm/sec MV P1/2t max rick: 119.4 cm/sec Ao V2 max: 136.8 cm/sec MV max P.6 mmHg MV P1/2t: 79.3 msec Ao max P.5 mmHg MV V2 mean: 68.0 cm/sec Ao V2 mean: 97.0 cm/sec MV mean P.2 mmHg MV dec slope: 440.9 cm/sec2 Ao mean P.3 mmHg MV V2 VTI: 37.5 cm MVA(P1/2t): 2.8 cm2 Ao V2 VTI: 31.0 cm AV (velocity ratio): 0.87 LV V1 max: 112.8 cm/sec PA V2 max: 95.3 cm/sec TR max rick: 307.1 cm/sec LV V1 max P.1 mmHg PA max PG (full): -0.08 mmHg TR max P.7 mmHg LV V1 mean P.0 mmHg LV V1 mean: 82.1 cm/sec LV V1 VTI: 26.9 cm ECHO/Echo Complete W/ Contrast Interpretation Summary Normal LV size. The estimated ejection fraction is 55 %. Pulmonary artery systolic pressure is 40 mmHg. Mild to moderate (1-2+) tricuspid valve insufficiency. Ordering Physician: Ysabel Ruffin Referring Physician: Ysabel Ruffin Performed By: Linwood Low RCS
--- NOTE | 2024-02-07 10:45 | US_ITS ---
STUDY: SUPERFICIAL ULTRASOUND - LEFT FLANK REASON FOR EXAM: Female, 58 years old. subcutaneous growth TECHNIQUE: A superficial ultrasound was performed with real-time and static kramer-scale imaging. COMPARISON: None. FINDINGS: Multiple longitudinal and transverse ultrasound images of the left flank confirm a 4 cm oval isoechoic mass in the simultaneous fat which may represent a lipoma. US/Ext Non Vasc Limited/Soft Tiss IMPRESSION: Possible 4 cm lipoma of the subcutaneous fat of the left flank. CT or MRI may be useful for Electronically Signed: Javier Adams MD at 17:15 EDT ,
== END | disposition home or self-care (01) ==
PROVIDERS: PCP Internal Medicine; Referring Provider Internal Medicine; Visit Provider Internal Medicine
DX: R06.00 Dyspnea, unspecified (principal)
CPT/HCPCS: 93306; 76882; Q9957; A4216; C8929

== ENCOUNTER → 2024-03-17 | Outpatient (CLI) | payer MEDICAID, SELFPAY ==
--- NOTE | 2024-03-17 11:50 | CT_ITS ---
STUDY: CT ABDOMEN AND PELVIS WITHOUT CONTRAST REASON FOR EXAM: Female, 58 years old. Left flank soft tissue mass, see US report RADIATION DOSAGE (If Supplied By Facility): CTDIvol = ( 22.71 ) mGy, DLP = ( 1249.35 ) mGycm TECHNIQUE: Transaxial images were obtained from the dome of the diaphragm to the symphysis pubis without oral contrast, and without intravenous contrast. Sagittal and coronal images were reconstructed. Individualized dose optimization techniques were used for this CT. COMPARISON: Comparison is made with prior study dated July 02, 2023. FINDINGS: The visualized lung bases are unremarkable. The visualized portions of the heart are within normal limits. Normal liver. There are surgical clips in the gallbladder fossa consistent with a prior cholecystectomy. Normal spleen. Normal pancreas. Normal bilateral adrenal glands. Normal right kidney. There is a 3.5 cm cyst in the posterior upper pole of the left kidney. Tiny nonobstructive calculus in the posterior calyx of the upper pole of the left kidney. Normal visualized stomach. Normal small intestine. Moderate amount of fecal material is seen in the colon. Scattered sigmoid diverticula. There is non-visualization of the appendix. Normal abdominal aorta. Normal inferior vena cava. Normal retroperitoneum. Normal urinary bladder. There is absence of the uterus consistent with a prior hysterectomy. Normal abdominal wall. No soft tissue mass is seen. There are degenerative changes of the visualized lumbar spine. CT/Abdomen/Pel W ORAL Cont Only IMPRESSION: Status post cholecystectomy. Stable left renal cyst. Tiny nonobstructive left intrarenal calculi. Electronically Signed: Jason Coleman MD at 15:04 EDT ,
== END | disposition home or self-care (01) ==
LOC: CT 11:50
PROVIDERS: PCP Internal Medicine; Referring Provider Nurse Practitioner; Visit Provider Nurse Practitioner
DX: R22.9 Localized swelling, mass and lump, unspecified (principal); D17.1 Benign lipomatous neoplasm of skin and subcutaneous tissue of trunk
CPT/HCPCS: 74176

== ENCOUNTER 2024-06-22 03:49 | Observation (INO) | payer MEDICAID, SELFPAY ==
[2024-06-22] VITALS (19 sets, daily range): BP systolic 104–176; BP diastolic 65–125; PULSE 60–83; RESP 12–18; TEMP -17.7–36.9; O2SAT 97–100; BMI 47.2; BMI 45.6
--- NOTE | 2024-06-22 03:50 | CT_ITS ---
STUDY: CTA HEAD AND NECK WITH CONTRAST REASON FOR EXAM: Female, 58 years old patient with acute neurologic deficit. Acute stroke suspected. RADIATION DOSAGE (If Supplied By Facility): CTDIvol = ( 31.38 ) mGy, DLP = ( 814.78 ) mGycm TECHNIQUE: CT angiography was performed with a multi-detector CT scanner. Data acquisition was obtained from the skull base through the vertex following intravenous administration of 100 mL of IV Isovue-370. MIP images were reconstructed from the axial data set. Post-processing of the angiographic images was performed, with multiplanar reformation and 3D reconstruction. Individualized dose optimization techniques were used for this CT. COMPARISON: No relevant priors. FINDINGS: Normal bilateral petrous carotid arteries. Normal right cavernous carotid artery with a normal supraclinoid bifurcation. Normal left cavernous carotid artery with a normal supraclinoid bifurcation. Normal right A1 segments of the anterior cerebral artery. Normal left A1 segments of the anterior cerebral artery. Normal intact anterior communicating artery (ACOM). Normal bilateral A2 segments of the anterior cerebral arteries. Normal right M1 and M2 segments of the middle cerebral arteries, with a normal M1 bifurcation. Normal left M1 and M2 segments of the middle cerebral arteries, with a normal M1 bifurcation. Normal right posterior communicating artery (PCOM). Normal left posterior communicating artery (PCOM). Normal bilateral vertebral arteries. Normal basilar artery with a normal basilar bifurcation. The visualized bilateral superior cerebellar (SCA) arteries are normal. Normal bilateral P1, P2 and visualized P3 segments of the posterior cerebral arteries. There is no demonstrated aneurysm of the [place] of [place]. There is no demonstrated abnormality of the visualized brain. AORTIC ARCH: Normal visualized aortic arch. Normal origins of the brachiocephalic, left common carotid, and left subclavian arteries. RIGHT CAROTID ARTERIES: Normal right common carotid artery (CCA). Normal right common carotid bulb. Normal origin of the right internal carotid (ICA) artery without a hemodynamically significant stenosis. Normal visualized cervical portion of the right internal carotid artery. Normal origin of the right external carotid artery (ECA). LEFT CAROTID ARTERIES: Normal left common carotid artery (CCA). Normal left common carotid bulb. Normal origin of the left internal carotid (ICA) artery without a hemodynamically significant stenosis. Normal visualized cervical portion of the left internal carotid artery. Normal origin of the left external carotid artery (ECA). VERTEBRAL ARTERIES: Normal bilateral vertebral arteries. NECK ANATOMY: There are prominent bronchovascular markings in both lungs. Enlargement of the central and peripheral pulmonary arteries suggesting pulmonary edema. The thyroid has a grossly normal appearance. Visualized parotid and submandibular glands have a grossly normal appearance. Nasopharynx, oropharynx, hypopharynx and larynx have a grossly normal appearance. Cervical and thoracic vertebral bodies have normal height and alignment. CT/STROKE CTA Head AND Neck W/Con IMPRESSION: No CTA evidence for hemodynamically significant stenosis, aneurysm or thrombosis. N.B. : The above Results were Read Back by Dodie Arceo MD to Burak Cornelius MD, and understanding confirmed on 06/22/2024 04:32:19 (ET). Electronically Signed: Dodie Arceo MD at 4:33 EST ,
--- NOTE | 2024-06-22 03:50 | EKG12_ITS ---
Test Reason : DYSRHYTHMIA Blood Pressure : */* mmHG Vent. Rate : 85 BPM Atrial Rate : 85 BPM P-R Int : 162 ms QRS Dur : 90 ms QT Int : 370 ms P-R-T Axes : 15 5 28 degrees QTcB Int : 440 ms Normal sinus rhythm Cannot rule out Inferior infarct , age undetermined Abnormal ECG Confirmed by Chan Gupta ([id number]), department editor SAUMYA PERAZA ([id number]) on 06/23/2024 11:41:20 AM Referred By: Confirmed By: Chan Gupta
--- NOTE | 2024-06-22 03:50 | CT_ITS ---
INDICATION: Neurologic deficit, acute, stroke suspected EXAMINATION: CT BRAIN - CT Head Stroke Protocol W/O Contrast Injection TECHNIQUE: Multiple axial images were obtained of the head without intravenous contrast. The protocol utilizes one or more of the following dose reduction techniques: automated exposure control, adjustment of mA and/or kV according to patient size,and/or use of iterative reconstruction technique. IV Contrast dosage and agent: None. RADIATION DOSAGE (If Supplied By Facility): CTDIvol = ( 45 ) mGy, DLP = ( 897.4 ) mGycm COMPARISON: Prior study dated: CT of the head dated February 07, 2023. FINDINGS: BRAIN PARENCHYMA: No intra- or extra-axial hemorrhage. No evidence of acute infarct. No intracranial mass or mass effect. There is preservation of the kramer/white matter interface. Posterior fossa structures are unremarkable. CSF SPACES: Appropriate for age. No hydrocephalus. Basal cisterns are patent. There appears to be flattening of the pituitary and mild enlargement of the sella consistent with empty sellar syndrome. CALVARIUM, SKULL BASE, PARANASAL SINUSES AND MASTOID AIR CELLS: Clear. No discrete lytic or blastic abnormalities. ORBITS: Both globes, extraocular muscles, optic nerves and retrobulbar fat appear unremarkable. ASPECTS Score for Acute Strokes: 10 CT/STROKE Brain/Head without Cont IMPRESSION: NO CT evidence of acute intracranial hemorrhage. N.B. : The above Results were Read Back by Dodie Arceo MD to Burak Cornelius MD, and understanding confirmed on 06/22/2024 04:08:05 (ET). Electronically Signed: Dodie Arceo MD at 4:07 EST ,
--- NOTE | 2024-06-22 03:51 | EDS_ITS ---
HPI History of Present Illness Chief Complaint: Stroke Alert Informant: patient and EMS Narrative Narrative: 58-year-old female with a history of stroke affecting her right side with chronic weakness brought by EMS as a prehospital stroke alert around 3:45 AM, patient states that she started feeling not well at 6 PM yesterday, noting that she was feeling malaised and achy all over. She went to bed feeling this way and then she woke up at an unknown time feeling numbness tingling and more weakness than usual on her right upper and lower extremities, and feeling like her heart was racing. This led to calling 911 and coming to the emergency department. [facility] Medical History Generalized muscle weakness H/O long-term (current) use of anticoagulants Falls frequently FTT (failure to thrive) in adult Concussion Chronic anemia Right rib fracture Compression fracture of T6 vertebra Compression fracture of T5 vertebra Debility Cancer CPAP (continuous positive airway pressure) dependence Sleep apnea Coronary artery disease Myocardial infarct DVT (deep venous thrombosis) Seizures DVT (deep vein thrombosis) in Breast infection Congestive heart failure Acute respiratory failure with hypoxia and hypercapnia Cardiopulmonary arrest with successful resuscitation Wears dentures Wears glasses Back pain TIA (transient ischemic attack) GERD (gastroesophageal reflux disease) Anemia BiPAP (biphasic positive airway pressure) dependence Former smoker On home oxygen therapy Cardiology follow-up encounter Hx of echocardiogram Hx of cardiovascular stress test Essential hypertension MSSA (methicillin susceptible Staphylococcus aureus) pneumonia Restrictive lung disease Chronic narcotic dependence Acute and chronic respiratory failure Pulmonary embolism Diastolic dysfunction Syncope and collapse STEPHANIE (obstructive sleep apnea) HLD (hyperlipidemia) Anxiety and depression Morbid obesity Chest pain Bilateral peripheral pulmonary emboli Hypothyroidism COPD (chronic obstructive pulmonary disease) Home Medications ?Medication ?Instructions ?Recorded ?Last Taken ?Type clonazepam 1 mg tablet 1 mg PO BID anxiety 05/09/21 08/25/21 History lorazepam 0.5 mg tablet (Ativan) 1 mg PO Q6H 08/24/22 Unknown History methadone 5 mg tablet 10 mg PO Q8H 08/24/22 Unknown History oxycodone 10 mg tablet 15 mg PO Q4H 08/24/22 Unknown History sennosides 8.6 mg tablet (senna) 8.6 mg PO BID 08/24/22 Unknown History compr.stocking,thigh,reg,x-lrg #24 ea 01/15/24 Unknown Rx miscellaneous medical supply 1 ea miscellaneous DAILY debility 01/16/24 Unknown Rx #1 ea cholecalciferol (vitamin D3) 1,250 1,250 mcg PO QWEEK #8 caps 03/14/24 Unknown Rx mcg (50,000 unit) capsule miscellaneous medical supply 1 ea miscellaneous DAILY #1 ea 04/29/24 Unknown Rx miscellaneous medical supply 1 ea miscellaneous DAILY #1 ea 04/29/24 Unknown Rx albuterol sulfate 90 mcg/actuation 2 puff inhalation Q6H PRN 05/13/24 Unknown Rx aerosol inhaler shortness of breath or wheezing #8.5 grams apixaban 5 mg tablet (Eliquis) 5 mg PO BID #60 tabs 05/13/24 Unknown Rx furosemide 20 mg tablet (Lasix) 30 mg (1.5 x 20 mg) PO DAILY #30 05/13/24 Unknown Rx tabs losartan 100 mg tablet (Cozaar) 100 mg PO DAILY #30 tabs 05/13/24 Unknown Rx metoprolol succinate 100 mg 50 mg (1/2 x 100 mg) PO DAILY 05/13/24 Unknown Rx tablet,extended release 24 hr blood pressure #15 tabs omeprazole 20 mg capsule,delayed 20 mg PO DAILY #30 caps 05/13/24 Unknown Rx release ondansetron HCl 4 mg tablet 4 mg PO Q8H PRN nausea and 05/13/24 Unknown Rx vomiting #30 tabs mirtazapine 7.5 mg tablet 7.5 mg PO QHS sleep #30 tabs 06/10/24 Unknown Rx venlafaxine 150 mg 150 mg PO DAILY #30 caps 06/10/24 Unknown Rx capsule,extended release 24 hr (Effexor XR) carbidopa ER 50 mg-levodopa 200 mg See Rx Instructions PO TID #150 06/11/24 Unknown Rx tablet,extended release tabs levetiracetam 500 mg tablet 500 mg PO BID #60 tabs 06/11/24 Unknown Rx (Keppra) polyethylene glycol 3350 17 4 g PO DAILY #119 grams 06/11/24 Unknown Rx gram/dose oral powder (Miralax) Allergy/AdvReac Type Severity Reaction Status Date / Time aspirin Allergy Hives Verified 06/22/24 04:18 dicyclomine Allergy Itching Verified 06/22/24 04:18 ibuprofen Allergy Hives Verified 06/22/24 04:18 ketorolac tromethamine (From Allergy Angioedema Verified 06/22/24 04:18 Toradol) nut - unspecified Allergy Hives Verified 06/22/24 04:18 Penicillins (PCN) Allergy Hives Verified 06/22/24 04:18 tramadol HCl (From Ultram) Allergy Angioedema Verified 06/22/24 04:18 Family History Brother Myocardial infarction Asthma Mental disorder Psychiatric care Suicide attempt Father Colon cancer Brother Mental disorder Aunt Parkinson disease Sister Breast cancer Cervical cancer Ovarian cancer Sister Cervical cancer Ovarian cancer Mother Cancer leukemia History of blood clots Hypertension Surgical History History of cardiac catheterization History of lumpectomy of left breast History of esophagogastroduodenoscopy (EGD) History of cholecystectomy History of left heart catheterization (LHC) (~04/22/21) S/P lumpectomy, left breast History of left breast biopsy History of hysterectomy Hx of appendectomy Social History household members: other details: assisted living housing: assisted living facility current occupational status: unemployed Smoking Status: Former smoker quit date: 01/21/16 pack-years: 32 Electronic Cigarette Use: not used second hand exposure: Yes alcohol intake: never substance use type: does not use do you feel safe at home: No ROS ROS ED Constitutional Constitutional ED: Reports body ache(s) and malaise; Denies chills or fever(s) Eyes Eyes: Denies change in vision or diplopia ENT ENT ED: Denies rhinorrhea or sore throat Cardiovascular Cardiovascular: Reports racing heartbeat; Denies chest pain Respiratory/Chest Respiratory/Chest: Denies cough or dyspnea Gastrointestinal Gastrointestinal: Reports abdominal pain, nausea and vomiting; Denies diarrhea Genitourinary Genitourinary ED: Reports dysuria and hematuria Musculoskeletal Musculoskeletal: Denies back pain or neck pain Integumentary Denies abscess or rash Neurologic Neurologic: Reports as per HPI, abnormal speech, paresthesias, tremor(s) and weakness; Denies headache(s) or seizures EXAM Physical Exam Const Vital Signs: 06/22/24 03:50 06/22/24 03:50 06/22/24 03:56 Temperature Temperature Source Pulse Rate 79 83 Respiratory Rate 12 18 Blood Pressure 175/124 H 176/100 H Blood Pressure Mean 141 125 Pulse Ox 99 98 97 Oxygen Delivery Method Nasal Cannula Nasal Cannula Oxygen Flow Rate (L/min) 3 3 06/22/24 04:04 06/22/24 04:20 06/22/24 04:49 Temperature 0 F L Temperature Source Oral Pulse Rate 83 78 79 Respiratory Rate 18 17 17 Blood Pressure 176/100 H 134/73 H 175/125 H Blood Pressure Mean 125 93 141 Pulse Ox 97 99 98 Oxygen Delivery Method Nasal Cannula Nasal Cannula Oxygen Flow Rate (L/min) 3 3 Positive well nourished, well developed and obese General Appearance ED: well developed and NAD Nutritional Appearance: obese HEENT Reports moist mucous membranes normocephalic and atraumatic Eyes PERRL and EOMs intact bilaterally Neck full ROM and supple Resp normal respiratory effort and clear to auscultation bilaterally Cardio regular rate, regular rhythm and no murmurs GI non-distended GI Narrative: Left upper quadrant tenderness no guarding or rebound or pulsatile mass; exam limited due to obesity Auscultation: normoactive bowel sounds Palpation: soft Back/Spine General Back: CVA tenderness left and other FROM Extremity normal to inspection General Extremety ED: Negative for edema, pulses abnormal or tenderness General Extremity: Negative for edema or pulses abnormal Neuro CN's II-XII intact bilaterally Neuro Narrative: See attached NIH Sensorium / Orientation: awake and alert Skin no rashes or lesions noted and no wounds NIHSS NIHSS Initial: 1a Level of Consciousness: 0 1b LOC Questions (Score 2 if aphasic/stupor): 0 1c LOC Commands (Only score 1st attempt): 0 2 Best Gaze (If aphasic, use reflexive mvmts.): 0 3 Visual: 0 4 Facial Palsy: 0 5 Motor Arm Right (UN = amputation/fusion): 0 5 Motor Arm Left: 0 6 Motor Leg Right: 2 6 Motor Leg Left: 1 7 Limb ataxia (Only + if out of proportion): 0 8 Sensory (Aphasia/stupor=0 or 1, coma=2): 1 9 Best Language: 1 10 Dysarthria (mute, coma=2, intubated=UN): 1 11 Extinction and Inattention (only scored if +): 0 Total Score: 6 MDM MDM MDM Narrative Medical decision making narrative: Family arrived, they live with her. The speech abnormality is new, she states they were told she had a stroke in the past although radiology who I spoke with, sees no evidence of an old stroke radiographically and no evidence of an acute hemorrhage. I reviewed the CT images and the report which I agree with. Upon obtaining ROS even though patient states other than feeling poorly she had no other symptoms, she later admits to many symptoms such as abdominal pain, left flank/back pain that feels like a kidney stone she has had in the past, dysuria, hematuria, and she states she has been vomiting several times. She is on Eliquis, so she is not a TNK candidate, but we are awaiting CT angiography read to rule out large vessel occlusion. She does not usually have baseline numbness or tingling in her right side as she does acutely now. At 4:32 AM I received a call from the radiologist indicating that CTA is negative for any acute obstructive arterial vessel. Blood test show a hemoglobin of 6.9. I reviewed her old labs. She is chronically low. She states she has had a blood transfusion in the past. She consents to receiving another 1. Typed and crossed her for 1 unit. No symptoms of GI bleeding, only historical symptoms of bleeding she was having was in her urine; she was not able to urinate so we straight catheter for urine, there is no gross hematuria at this time. We did send her for CT of the abdomen/pelvis, which I reviewed she has bilateral renal calculi along with some ureterolithiasis on the left. History & Record Review Discussion w/independent historian: EMS personnel, Patient and Family (x2) Lab Data Attestation: I reviewed the patient's lab results. Labs: Laboratory Results - last 24 hr 06/22/24 04:31 WBC 7.2 RBC 3.27 L Hgb 6.9 L Hct 24.6 L MCV 75.2 L MCH 21.1 L MCHC 28.0 L RDW Std Deviation 42.8 RDW Coeff of Immanuel 15.7 H Plt Count 222 MPV 9.5 Immature Gran % (Auto) 0.300 Neut % (Auto) 69.6 Lymph % (Auto) 20.2 Mcpherson % (Auto) 7.5 Eos % (Auto) 1.8 Baso % (Auto) 0.6 Absolute Neuts (auto) 5.0 Absolute Lymphs (auto) 1.46 Nucleated RBC % 0 PT 14.9 INR 1.2 APTT 33.7 Sodium 135 L Potassium 4.0 Chloride 100 Carbon Dioxide 30.0 Anion Gap 6 BUN 16 Creatinine 0.89 Estim Creat Clear Calc 96.46 Est GFR (MDRD) Af Amer 84 Est GFR (MDRD) Non-Af 69 BUN/Creatinine Ratio 18.1 Glucose 121 H Calcium 8.5 Troponin I High Sens 4 Radiography Diagnostic Testing: Clinical Impression(s) from Imaging Studies Brain CT 06/22/24 03:50 IMPRESSION: NO CT evidence of acute intracranial hemorrhage. N.B. : The above Results were Read Back by Dodie Arceo MD to Burak Cornelius MD, and understanding confirmed on 06/22/2024 04:08:05 (ET). Electronically Signed: Dodie Arceo MD at 4:07 EST , Head/Neck CTA 06/22/24 03:50 IMPRESSION: No CTA evidence for hemodynamically significant stenosis, aneurysm or thrombosis. N.B. : The above Results were Read Back by Dodie Arceo MD to Burak Cornelius MD, and understanding confirmed on 06/22/2024 04:32:19 (ET). Electronically Signed: Dodie Arceo MD at 4:33 EST , ADDENDUM: 06/22/24 0440 IMPRESSION: No CTA evidence for hemodynamically significant stenosis, aneurysm or thrombosis. N.B. : The above Results were Read Back by Dodie Arceo MD to Burak Cornelius MD, and understanding confirmed on 06/22/2024 04:32:19 (ET). Electronically Signed: Dodie Arceo MD at 4:33 EST , Rhythm Strip Rhythm Strip: Sinus Rhythm Rate: 80 Ectopy: None EKG Initial EKG: Attestation: I personally reviewed and interpreted this EKG as follows: Interpretation: Sinus Rhythm and No Acute Injury Pattern Comments: Nml axis & intervals; nml EKG Management Discussion w/another healthcare provider: Hospitalist, Analysis Or Research Safety Inspector (Stroke neurology Dr. Jade) and Radiologist Stroke Documentation Questions Stroke Team Activated: Yes (Prehospital) IV Thrombolytic Administered: No (On Eliquis) Critical Care Time Critical Care Time: Yes Critical care time (excluding procedures): 30-74 minutes (34 min), Including time spent:, Discussing w/Patient &/or Family/Move Coordinator, Discussing w/Consultants, Arranging Admission or Transfer and Performing Direct Patient Care at Bedside Discharge Plan Triage Chief Complaint: Stroke Alert ED Provider: Burak Cornelius Dx/Rx/DC Orders Clinical Impression: Acute right hemiparesis, Anemia, Ureterolithiasis Prescriptions: No Action sennosides [senna] 8.6 mg tablet 8.6 mg PO BID methadone 5 mg tablet 10 mg PO Q8H oxycodone 10 mg tablet 15 mg PO Q4H Rx Instructions: one tab q4hrs routine and q1hr PRN for pain/SOB lorazepam [Ativan] 0.5 mg tablet 1 mg PO Q6H Rx Instructions: take one tablet q12hrs routinely and q4hrs prn anxiety (DME) compr.stocking,thigh,reg,x-lrg Misc See Rx Instructions .Route Qty: 24 0RF Rx Instructions: As directed miscellaneous medical supply Kit 1 ea miscellaneous DAILY Qty: 1 0RF Rx Instructions: Motorized wheelchair clonazepam 1 mg tablet 1 mg PO BID cholecalciferol (vitamin D3) 1,250 mcg (50,000 unit) capsule 1,250 mcg PO QWEEK Qty: 8 0RF miscellaneous medical supply Misc 1 ea miscellaneous DAILY Qty: 1 0RF Rx Instructions: Hospital Bed miscellaneous medical supply Misc 1 ea miscellaneous DAILY Qty: 1 0RF Rx Instructions: lift chair Eliquis 5 mg tablet 5 mg PO BID Qty: 60 1RF losartan [Cozaar] 100 mg tablet 100 mg PO DAILY Qty: 30 1RF metoprolol succinate 100 mg tablet extended release 24 hr 50 mg PO DAILY Qty: 15 1RF Patient Comments: TAKE (1) TABLET BY MOUTH ONCE DAILY Rx Instructions: Hold for heart less than 60 or systolic blood pressure less than 100 mmHg. omeprazole 20 mg capsule,delayed release(DR/EC) 20 mg PO DAILY Qty: 30 1RF ondansetron HCl 4 mg tablet 4 mg PO Q8H PRN (Reason: nausea and vomiting) Qty: 30 1RF albuterol sulfate 90 mcg/actuation HFA aerosol inhaler 2 puff inhalation Q6H PRN (Reason: shortness of breath or wheezing) Qty: 8.5 1RF furosemide [Lasix] 20 mg tablet 30 mg PO DAILY Qty: 30 1RF mirtazapine 7.5 mg tablet 7.5 mg PO QHS Qty: 30 0RF venlafaxine [Effexor XR] 150 mg capsule,extended release 24hr 150 mg PO DAILY Qty: 30 0RF levetiracetam [Keppra] 500 mg tablet 500 mg PO BID Qty: 60 0RF carbidopa-levodopa 50-200 mg tablet extended release See Rx Instructions PO TID Qty: 150 0RF Rx Instructions: orally three times a day; take 2 tablets morning, 1 tablet at lunch and 2 tablets at bedtime polyethylene glycol 3350 [Miralax] 17 gram/dose powder 4 g PO DAILY Qty: 119 0RF Primary Care Provider: Ysabel Ruffin Referrals: Ysabel Ruffin MD [Primary Care Provider] - Print Language: Bahraini Disposition Disposition: Acute Care Hospital [facility]
--- NOTE | 2024-06-22 04:23 | CT_ITS ---
STUDY: CT ABDOMEN AND PELVIS WITHOUT CONTRAST REASON FOR EXAM: Female, 58 years old patient with left-sided flank pain. RADIATION DOSAGE (If Supplied By Facility): CTDIvol = ( 23.93 ) mGy, DLP = ( 1387.25 ) mGycm TECHNIQUE: Transaxial images were obtained from the dome of the diaphragm to the symphysis pubis without oral contrast, and without intravenous contrast. Sagittal and coronal images were reconstructed. Individualized dose optimization techniques were used for this CT. COMPARISON: CT of abdomen and pelvis dated March 17, 2024. FINDINGS: The visualized lung bases are unremarkable. The visualized portions of the heart appear enlarged. Normal liver. There are surgical clips in the gallbladder fossa consistent with a prior cholecystectomy. Normal spleen. Normal pancreas. Normal bilateral adrenal glands. There is moderate cortical atrophy of the right kidney, consistent with chronic medical renal disease. There are multiple bilateral renal cysts with the largest measuring 3.5 cm. There is prompt excretion of contrast by both kidneys. Opacified ureters have normal course and caliber to the urinary bladder. Normal visualized stomach. There is no obvious dilated bowel, ascites or pneumoperitoneum. There is stool and/or gas visible within the colon. There is non-visualization of the appendix. Normal abdominal aorta. Normal inferior vena cava. Normal retroperitoneum. Normal urinary bladder. There is absence of the uterus consistent with a prior hysterectomy. Normal abdominal wall. There are degenerative changes at L4-5 with eburnation of the inferior endplate of L4. The imaged thoracic and lumbar vertebral bodies have normal height and alignment. There are degenerative changes of both hips. CT/Abdomen/Pelvis without Cont IMPRESSION: 1. Both kidneys excrete contrast secondary to recent CTA of the head and neck. There is no definite evidence for acute obstructive uropathy. However a small calculus may not be visualized. 2. Status post cholecystectomy. 3. Sequela of right-sided renal insufficiency. Electronically Signed: Dodie Arceo MD at 6:51 EST ,
[2024-06-22 04:38] LABS: Absolute Lymphocyte Count 1.46 X10^3/uL (0.83-4.51); Basophil# 0.04 X10^3/uL; Basophil% 0.6 % (0-1); Eosinophil# 0.13 X10^3/uL; Eosinophils% 1.8 % (0-5); Hematocrit 24.6 % (37-47); Hemoglobin 6.9 g/dL (12.0-15.0); Lymphocyte # 1.46 X10^3/ul (0.83-4.51); Lymphocyte % 20.2 % (19-41); Mean Corpuscular Hgb 21.1 pg (27.0-32.0); Mean Corpuscular Volume 75.2 fL (81-99); Mean Platelet Vol. 9.5 fl (6.2-12.0); Monocyte# 0.54 X10^3/uL; Monocyte% 7.5 % (0-10); NRBC Flagged by Analyzer 0 % (0-5); Neutrophil # 5.03 X10^3/uL (2.7-7.7); Neutrophil % 69.6 % (47-70); Platelet Count 222 K/mm3 (150-450); RBC Distribution Width CV 15.7 % (11.6-14.6); RBC Distribution Width SD 42.8 fl (35.1-43.9); Red Blood Count 3.27 M/mm3 (4.2-5.4); White Blood Count 7.2 K/mm3 (4.4-11.0)
[2024-06-22] MEDS: Ondansetron 4 MG/2 ML Vial IV (04:39)
[2024-06-22 04:50] LABS: International Normalized Ratio 1.2; Prothrombin Time (Protime)PT. 14.9 SECONDS (11.7-14.9)
[2024-06-22 04:51] LABS: Partial Thromboplast Time 33.7 Seconds (24.1-36.2)
--- NOTE | 2024-06-22 05:00 | RAD_ITS ---
EXAM: XR CHEST, 1 VIEW CLINICAL INDICATION: Neuro deficit, acute, stroke suspected TECHNIQUE: Frontal view of the chest. COMPARISON: XR Chest dated 04/01/2022 FINDINGS: LUNGS AND PLEURAL SPACES: Normal. No consolidation or edema. No pneumothorax. No effusion. HEART: Normal heart size. MEDIASTINUM: No mediastinal or hilar mass. BONES/JOINTS: No acute abnormality. RAD/Chest 1 View IMPRESSION: No acute cardiopulmonary abnormality. No interval change. Electronically Signed: Faisal Cruz MD at 8:24 EST ,
[2024-06-22 05:01] LABS: Anion Gap 6 (5-15); BUN 16 mg/dL (7-18); BUN/Creat Ratio 18.1 RATIO (10-20); Calcium,Total 8.5 mg/dL (8.5-10.1); Chloride 100 mmol/L (98-107); Creatinine, Serum 0.89 mg/dL (0.55-1.02); EST Glomerular Filtration Rate 69 mL/min (>60); Est Glom Filt Rate - Afr Amer 84 mL/min (>60); Estimated Creatinine Clearance 96.46 ml/min; Glucose 121 mg/dL (74-106); Sodium Level 135 mmol/L (136-145); Troponin-I HS 4 pg/mL (3.0-54.0)
--- NOTE | 2024-06-22 05:52 | HP.PCM.HOS_ITS ---
HPI - General General Date of Admission: 06/22/24 Date of Service: 06/22/24 Chief Complaint: Strokelike symptoms HPI Narrative LUIS A CUMMINGS, is a 58 F who presented to [facility] ED on 06/22/2024 with strokelike symptoms. Patient has complicated past medical history. 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 She follows with neurology for these things. She is wheelchair-bound at baseline. Lives with her brother and [id number]. She was brought in by EMS today with worsening right-sided weakness and dysarthria. She reported not feeling well starting at 6 PM yesterday, was feeling malaised and full body achiness. She went to bed feeling that way and then woke up in the middle of the night with more weakness than usual of her right upper and lower extremities with numbness and tingling. Family arrived with her and noted that her speech abnormality was new. Stroke alert was called on arrival. Did have reported NIH score of [address] brain and CTA head/neck were unremarkable. Notably patient reported having a previous stroke but no old infarcts are seen on CT scan. Vitals notable for hypertension to the 170s over 100s, otherwise hemodynamically stable on home 3 L nasal cannula. Labs notable for hemoglobin 6.9, otherwise unremarkable. Patient has chronic anemia with baseline hemoglobin around 7. Has required transfusions in the past. After returning from CT scan patient was reporting ongoing abdominal and low back pain. CT abdomen pelvis was obtained with wet read showing concern for bilateral kidney stones but no hydronephrosis. She had difficulty urinating so she was straight cathed and had no gross hematuria with this. UA showed 150 occult blood with 10-25 red blood cells, was otherwise unremarkable. Given her presentation concerning for stroke versus TIA along with anemia, hospitalist was contacted for admission. I saw the patient at bedside in the ED. No family was present. Patient was laying back in bed and had eyes closed for majority of our encounter. She did have twitching noted intermittently throughout the encounter. She was able to answer my questions appropriately. Noted that she is having ongoing abdominal and low back pain. Noted that she has chronic back pain but this feels slightly worse than her normal. States the right arm and leg weakness are improving from earlier. She was asking for pain medication for her back and abdominal pain. She denied any fevers or chills. No other acute concerns. Will be admitted for further management. [facility] Medical History Generalized muscle weakness H/O long-term (current) use of anticoagulants Falls frequently FTT (failure to thrive) in adult Concussion Chronic anemia Right rib fracture Compression fracture of T6 vertebra Compression fracture of T5 vertebra Debility Cancer CPAP (continuous positive airway pressure) dependence Sleep apnea Coronary artery disease Myocardial infarct DVT (deep venous thrombosis) Seizures DVT (deep vein thrombosis) in Breast infection Congestive heart failure Acute respiratory failure with hypoxia and hypercapnia Cardiopulmonary arrest with successful resuscitation Wears dentures Wears glasses Back pain TIA (transient ischemic attack) GERD (gastroesophageal reflux disease) Anemia BiPAP (biphasic positive airway pressure) dependence Former smoker On home oxygen therapy Cardiology follow-up encounter Hx of echocardiogram Hx of cardiovascular stress test Essential hypertension MSSA (methicillin susceptible Staphylococcus aureus) pneumonia Restrictive lung disease Chronic narcotic dependence Acute and chronic respiratory failure Pulmonary embolism Diastolic dysfunction Syncope and collapse STEPHANIE (obstructive sleep apnea) HLD (hyperlipidemia) Anxiety and depression Morbid obesity Chest pain Bilateral peripheral pulmonary emboli Hypothyroidism COPD (chronic obstructive pulmonary disease) Home Medications ?Medication ?Instructions ?Recorded ?Last Taken ?Type clonazepam 1 mg tablet 1 mg PO BID anxiety 05/09/21 08/25/21 History lorazepam 0.5 mg tablet (Ativan) 1 mg PO Q6H 08/24/22 Unknown History methadone 5 mg tablet 10 mg PO Q8H 08/24/22 Unknown History oxycodone 10 mg tablet 15 mg PO Q4H 08/24/22 Unknown History sennosides 8.6 mg tablet (senna) 8.6 mg PO BID 08/24/22 Unknown History compr.stocking,thigh,reg,x-lrg #24 ea 01/15/24 Unknown Rx miscellaneous medical supply 1 ea miscellaneous DAILY debility 01/16/24 Unknown Rx #1 ea cholecalciferol (vitamin D3) 1,250 1,250 mcg PO QWEEK #8 caps 03/14/24 Unknown Rx mcg (50,000 unit) capsule miscellaneous medical supply 1 ea miscellaneous DAILY #1 ea 04/29/24 Unknown Rx miscellaneous medical supply 1 ea miscellaneous DAILY #1 ea 04/29/24 Unknown Rx albuterol sulfate 90 mcg/actuation 2 puff inhalation Q6H PRN 05/13/24 Unknown Rx aerosol inhaler shortness of breath or wheezing #8.5 grams apixaban 5 mg tablet (Eliquis) 5 mg PO BID #60 tabs 05/13/24 Unknown Rx furosemide 20 mg tablet (Lasix) 30 mg (1.5 x 20 mg) PO DAILY #30 05/13/24 Unknown Rx tabs losartan 100 mg tablet (Cozaar) 100 mg PO DAILY #30 tabs 05/13/24 Unknown Rx metoprolol succinate 100 mg 50 mg (1/2 x 100 mg) PO DAILY 05/13/24 Unknown Rx tablet,extended release 24 hr blood pressure #15 tabs omeprazole 20 mg capsule,delayed 20 mg PO DAILY #30 caps 05/13/24 Unknown Rx release ondansetron HCl 4 mg tablet 4 mg PO Q8H PRN nausea and 05/13/24 Unknown Rx vomiting #30 tabs mirtazapine 7.5 mg tablet 7.5 mg PO QHS sleep #30 tabs 06/10/24 Unknown Rx venlafaxine 150 mg 150 mg PO DAILY #30 caps 06/10/24 Unknown Rx capsule,extended release 24 hr (Effexor XR) carbidopa ER 50 mg-levodopa 200 mg See Rx Instructions PO TID #150 06/11/24 Unknown Rx tablet,extended release tabs levetiracetam 500 mg tablet 500 mg PO BID #60 tabs 06/11/24 Unknown Rx (Keppra) polyethylene glycol 3350 17 4 g PO DAILY #119 grams 06/11/24 Unknown Rx gram/dose oral powder (Miralax) Allergy/AdvReac Type Severity Reaction Status Date / Time aspirin Allergy Hives Verified 06/22/24 04:18 dicyclomine Allergy Itching Verified 06/22/24 04:18 ibuprofen Allergy Hives Verified 06/22/24 04:18 ketorolac tromethamine (From Allergy Angioedema Verified 06/22/24 04:18 Toradol) nut - unspecified Allergy Hives Verified 06/22/24 04:18 Penicillins (PCN) Allergy Hives Verified 06/22/24 04:18 tramadol HCl (From Ultram) Allergy Angioedema Verified 06/22/24 04:18 Family History Brother Myocardial infarction Asthma Mental disorder Psychiatric care Suicide attempt Father Colon cancer Brother Mental disorder Aunt Parkinson disease Sister Breast cancer Cervical cancer Ovarian cancer Sister Cervical cancer Ovarian cancer Mother Cancer leukemia History of blood clots Hypertension Surgical History History of cardiac catheterization History of lumpectomy of left breast History of esophagogastroduodenoscopy (EGD) History of cholecystectomy History of left heart catheterization (LHC) (~04/22/21) S/P lumpectomy, left breast History of left breast biopsy History of hysterectomy Hx of appendectomy Social History household members: other details: assisted living housing: assisted living facility current occupational status: unemployed Smoking Status: Former smoker quit date: 01/21/16 pack-years: 32 Electronic Cigarette Use: not used second hand exposure: Yes alcohol intake: never substance use type: does not use do you feel safe at home: No ROS Constitutional Constitutional: Reports fatigue and weakness; Denies chills or fever(s) Eyes Eyes: Denies change in vision Cardiovascular Cardiovascular: Denies chest pain Respiratory/Chest Respiratory/Chest: Denies shortness of breath at rest Gastrointestinal Gastrointestinal: Reports abdominal pain; Denies constipation, diarrhea, nausea or vomiting Genitourinary Genitourinary: Reports difficulty urinating; Denies dysuria Musculoskeletal Musculoskeletal: Reports back pain; Denies arthralgias or myalgias Neurologic Neurologic: Reports numbness and paresthesias; Denies dizziness or headache(s) Vital Signs Vital Signs Vital Signs: 06/22/24 03:50 06/22/24 03:50 06/22/24 03:56 Temperature Temperature Source Pulse Rate 79 83 Respiratory Rate 12 18 Blood Pressure 175/124 H 176/100 H Blood Pressure Mean 141 125 Pulse Ox 99 98 97 Oxygen Delivery Method Nasal Cannula Nasal Cannula Oxygen Flow Rate (L/min) 3 3 06/22/24 04:04 06/22/24 04:20 06/22/24 04:49 Temperature 0 F L Temperature Source Oral Pulse Rate 83 78 79 Respiratory Rate 18 17 17 Blood Pressure 176/100 H 134/73 H 175/125 H Blood Pressure Mean 125 93 141 Pulse Ox 97 99 98 Oxygen Delivery Method Nasal Cannula Nasal Cannula Oxygen Flow Rate (L/min) 3 3 06/22/24 05:00 06/22/24 05:00 06/22/24 05:30 Temperature Temperature Source Pulse Rate 68 68 67 Respiratory Rate 18 16 17 Blood Pressure 154/124 H 156/124 H 168/107 H Blood Pressure Mean 134 134 127 Pulse Ox 98 98 97 Oxygen Delivery Method Nasal Cannula Room Air Nasal Cannula Oxygen Flow Rate (L/min) 3 3 06/22/24 05:51 Temperature 98.4 F Temperature Source Pulse Rate 66 Respiratory Rate 18 Blood Pressure 168/107 H Blood Pressure Mean 127 Pulse Ox 97 Oxygen Delivery Method Oxygen Flow Rate (L/min) Weight Weight: 132.766 kg Body Mass Index (BMI) 47.2 Physical Exam Const alert and no apparent distress Constitutional Narrative: Elderly female, morbidly obese, chronically ill-appearing, laying back in bed, intermittent twitching noted, otherwise answering questions with short appropriate responses, in no acute distress. General Appearance: cooperative HEENT normocephalic, head/scalp atraumatic, hearing grossly normal bilaterally and nasal mucous membranes and turbinates normal Eyes PERRL, EOMs intact bilaterally and conjunctivae normal Neck full ROM Chest inspection of chest normal Resp normal respiratory effort, normal air movement, no use of accessory muscles and clear to auscultation bilaterally Resp Narrative: Breathing comfortably on home 3 L nasal cannula at rest. Cardio regular rate, regular rhythm, no murmurs and peripheral pulses 2+ throughout GI GI Narrative: Mild tenderness to palpation diffusely. Otherwise soft and nondistended with normal bowel sounds. Back/Spine thoracic and lumbar spine normal to inspection Extremity normal to inspection and no pedal edema Neuro oriented x3 Neuro Narrative: No right arm weakness noted on my exam. Mild right leg weakness noted. Sensorium / Orientation: alert Speech: speech normal Psych Mood & Affect: anxious Results Lab / Micro Data 06/22/24 04:31 06/22/24 04:31 Labs: Laboratory Results - last 24 hr 06/22/24 04:31: WBC 7.2, RBC 3.27 L, Hgb 6.9 L, Hct 24.6 L, MCV 75.2 L, MCH 21.1 L, MCHC 28.0 L, RDW Std Deviation 42.8, RDW Coeff of Immanuel 15.7 H, Plt Count 222, MPV 9.5, Immature Gran % (Auto) 0.300, Neut % (Auto) 69.6, Lymph % (Auto) 20.2, Scott % (Auto) 7.5, Eos % (Auto) 1.8, Baso % (Auto) 0.6, Absolute Neuts (auto) 5.0, Absolute Lymphs (auto) 1.46, Nucleated RBC % 0, PT 14.9, INR 1.2, APTT 33.7, Sodium 135 L, Potassium 4.0, Chloride 100, Carbon Dioxide 30.0, Anion Gap 6, BUN 16, Creatinine 0.89, Estim Creat Clear Calc 96.46, Est GFR (MDRD) Af Amer 84, Est GFR (MDRD) Non-Af 69, BUN/Creatinine Ratio 18.1, Glucose 121 H, Calcium 8.5, Troponin I High Sens 4 Rhythm Strip Rhythm Strip: Sinus Rhythm Rate: 80 Ectopy: None Imaging Radiology Impression Brain CT 06/22/24 03:50 IMPRESSION: NO CT evidence of acute intracranial hemorrhage. N.B. : The above Results were Read Back by Dodie Arceo MD to Burak Cornelius MD, and understanding confirmed on 06/22/2024 04:08:05 (ET). Electronically Signed: Dodie Arceo MD at 4:07 EST , Head/Neck CTA 06/22/24 03:50 IMPRESSION: No CTA evidence for hemodynamically significant stenosis, aneurysm or thrombosis. N.B. : The above Results were Read Back by Dodie Arceo MD to Burak Cornelius MD, and understanding confirmed on 06/22/2024 04:32:19 (ET). Electronically Signed: Dodie Arceo MD at 4:33 EST , ADDENDUM: 06/22/24 0440 IMPRESSION: No CTA evidence for hemodynamically significant stenosis, aneurysm or thrombosis. N.B. : The above Results were Read Back by Dodie Arceo MD to Burak Cornelius MD, and understanding confirmed on 06/22/2024 04:32:19 (ET). Electronically Signed: Dodie Arceo MD at 4:33 EST , Assessment & Plan Assessment/Plan (1) Acute right hemiparesis: (2) Anemia: PLAN: Plan Patient is a 58-year-old female who presented [facility] ED on 06/22/2024 with strokelike symptoms. 1. Strokelike symptoms, CVA rule out ? Admit under observation status to PCU. Teleneurology consulted. PT/OT/case management consulted. Orders placed per stroke protocol order set. CT brain and CTA head/neck negative. MRI brain ordered. Lipid panel, A1c and TSH ordered. Allow permissive hypertension for now. 2. Mild acute on chronic iron deficiency anemia ? Hemoglobin 6.9 on admit. Baseline hemoglobin appears to be around 7. Per PCP note recently, has required blood transfusions and iron infusions in the past. Patient apparently reported intermittent bleeding per rectum to her PCP but due to her being wheelchair-bound bound rectal exam was not done. Patient also with microscopic hematuria noted as below. Patient hemodynamically stable and no bowel movement since arrival here. Will transfuse 1 unit of packed red blood cells and recheck hemoglobin afterward. No need for further workup aside from this. 3. Microscopic hematuria with concern for nephrolithiasis ? UA on admit showed 150 occult blood, 10-25 RBCs, otherwise unremarkable. CT abdomen pelvis with read pending but wet read appears to show bilateral renal calculi along with some ureterolithiasis on the left; will need to follow-up final read. 4. 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 Follows with outpatient neurology. PT/OT/case management consulted as above. Continue home carbidopa?levodopa, scheduled Ativan and levetiracetam. 5. Chronic pain ? Follows with outpatient palliative care. Continue home methadone 10 mg every 8 hours and oxycodone 15 mg every 4 hours scheduled. Notably O[facility]RS was reviewed for these medications as well as Ativan noted above. 6. Anxiety and depression ? Follows with outpatient psychiatry. Continue home Ativan, venlafaxine and mirtazapine at night. 7. COPD with chronic respiratory failure ? Stable on home 3 L nasal cannula here, not in acute exacerbation. Continue home albuterol inhaler as needed. 8. History of VTE ? Continue home Eliquis. 9. Hypertension ? Holding home losartan and Toprol for now to allow for permissive hypertension. 10. GERD ? Continue home PPI. 11. Morbid obesity ? BMI 47 on admit. Complicates hospital course, care and prognosis. DVT prophylaxis: Not indicated, on Eliquis CODE STATUS: Full code, unverified Expected disposition: Home, 1 to 2 days Total clinical time spent by myself addressing the patient's medical issues, reviewing all the data, and collaborating with patient's care team: 75 minutes. Charges/Coding Visit Charges Inpatient E&M: 96750 Init Hosp L3
--- NOTE | 2024-06-22 06:02 | MRI_ITS ---
EXAM: MR HEAD WITHOUT INTRAVENOUS CONTRAST CLINICAL INDICATION: r/o CVA TECHNIQUE: Multiplanar and multisequence MR images of the brain were obtained without intravenous contrast. COMPARISON: CT brain 06/22/2024 FINDINGS: BRAIN AND EXTRA-AXIAL SPACES: Normal. No intra- or extra-axial hemorrhage. No evidence of acute infarct. No intracranial mass or mass effect. Normal preservation of the kramer/white matter interface. Posterior fossa structures are unremarkable. Ventricles are appropriate for age. No hydrocephalus. Basal cisterns are patent. SELLA: Small empty sella. AUDITORY SYSTEM: Normal. The internal auditory canals are patent. BONES/JOINTS: Intact calvarium. SINUSES: Unremarkable as visualized. Clear. MASTOID AIR CELLS: Clear. ORBITS: Enlargement of the optic sheath again noted bilaterally. VASCULATURE: Unremarkable as visualized. Normal flow voids in the major intracranial circulation. MRI/Brain without Contrast IMPRESSION: 1. No acute intracranial abnormality. 2. Empty sella and prominent optic sheaths raises possibility of intracranial hypertension. Electronically Signed: Faisal Cruz MD at 14:35 EST ,
[2024-06-22 06:12] LABS: Bacteria 0 SEEN /hpf (None Seen); Mucous, Urine 0 SEEN /hpf (<or=2+); Squamous Epithelial Cells - UA 0 SEEN /hpf (5-10); White Blood Cells 0 SEEN /hpf (0-5)
[2024-06-22 06:13] LABS: Color, Urine Yellow (Yellow); Glucose, Dipstick Normal (Normal); Ketone-Dipstick Negative (Negative); Leukocyte Esterase-Dipstick Negative /ul (Negative); Nitrite-Dipstick Negative (Negative); Occult Blood-Urine 150 /ul (Negative); Protein-Dipstick 15 mg/dl (Negative); Specific Gravity, Urine 1.005 (1.002-1.030); Urine Bilirubin Dipstick Negative (Negative); Urine Clarity Clear (Clear); Urine Urobilinogen Normal (Normal)
[2024-06-22 06:37] LABS: Red Blood Cells-Urine 10-25 SEEN /hpf (0-5)
[2024-06-22] MEDS: 0.9% Saline Lock 10 ML Syringe IV ×2 (08:00→20:51)
[2024-06-22] MEDS: CARBIDOPA/LEVODOPA CR 50/200 Tablet PO ×3 (08:02→20:43)
[2024-06-22] MEDS: Methadone 10 MG Tablet PO ×3 (08:02→20:41)
[2024-06-22] MEDS: LORazepam 1 MG Tablet PO ×2 (08:02→20:40)
[2024-06-22 08:14] LABS: Cholesterol 176 mg/dL (200); High Density Lipoprotein 56 mg/dL; Triglycerides 91 mg/dL; Very Low Density Lipoprotein 18 mg/dL (5-40)
[2024-06-22] MEDS: Venlafaxine XR 150 MG Capsule PO (09:13)
[2024-06-22] MEDS: oxyCODONE 5 MG Tablet 15 MG PO ×4 (09:13→20:41)
[2024-06-22] MEDS: Ensure Plus High Protein 120 ML LIQUID PO ×4 (09:13→20:40)
[2024-06-22] MEDS: APIXABAN 5 MG TABLET PO ×2 (09:14→20:40)
[2024-06-22] MEDS: Pantoprazole Sodium 20 MG Tablet PO (09:14)
[2024-06-22] MEDS: levETIRAcetam 500 MG Tablet PO ×2 (09:14→20:41)
--- NOTE | 2024-06-22 10:14 | CON.PCM.NE_ITS ---
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 Stroke alert was called on arrival. Did have reported NIH score of [address] brain and CTA head/neck were unremarkable. Notably patient reported having a previous stroke but no old infarcts are seen on CT scan. she had history of PD, Jordan Christine syndrome post HEI, venous thrombosis on Eliquis. FOR[facility]LY [facility] Medical History Generalized muscle weakness H/O long-term (current) use of anticoagulants Falls frequently FTT (failure to thrive) in adult Concussion Chronic anemia Right rib fracture Compression fracture of T6 vertebra Compression fracture of T5 vertebra Debility Cancer CPAP (continuous positive airway pressure) dependence Sleep apnea Coronary artery disease Myocardial infarct DVT (deep venous thrombosis) Seizures DVT (deep vein thrombosis) in Breast infection Congestive heart failure Acute respiratory failure with hypoxia and hypercapnia Cardiopulmonary arrest with successful resuscitation Wears dentures Wears glasses Back pain TIA (transient ischemic attack) GERD (gastroesophageal reflux disease) Anemia BiPAP (biphasic positive airway pressure) dependence Former smoker On home oxygen therapy Cardiology follow-up encounter Hx of echocardiogram Hx of cardiovascular stress test Essential hypertension MSSA (methicillin susceptible Staphylococcus aureus) pneumonia Restrictive lung disease Chronic narcotic dependence Acute and chronic respiratory failure Pulmonary embolism Diastolic dysfunction Syncope and collapse STEPHANIE (obstructive sleep apnea) HLD (hyperlipidemia) Anxiety and depression Morbid obesity Chest pain Bilateral peripheral pulmonary emboli Hypothyroidism COPD (chronic obstructive pulmonary disease) Home Medications ?Medication ?Instructions ?Recorded ?Last Taken ?Type lorazepam 0.5 mg tablet (Ativan) 1 mg PO Q6H anxiety 08/24/22 06/21/24 History methadone 5 mg tablet 10 mg PO Q8H pain 08/24/22 06/21/24 History oxycodone 10 mg tablet 15 mg PO Q4H 08/24/22 Unknown History sennosides 8.6 mg tablet (senna) 8.6 mg PO BID stool softener 08/24/22 06/21/24 History compr.stocking,thigh,reg,x-lrg #24 ea 01/15/24 Unknown Rx miscellaneous medical supply 1 ea miscellaneous DAILY debility 01/16/24 Unknown Rx #1 ea miscellaneous medical supply 1 ea miscellaneous DAILY #1 ea 04/29/24 Unknown Rx miscellaneous medical supply 1 ea miscellaneous DAILY #1 ea 04/29/24 Unknown Rx albuterol sulfate 90 mcg/actuation 2 puff inhalation Q6H PRN 05/13/24 Unknown Rx aerosol inhaler shortness of breath or wheezing #8.5 grams apixaban 5 mg tablet (Eliquis) 5 mg PO BID blood thinner #60 tabs 05/13/24 06/21/24 Rx furosemide 20 mg tablet (Lasix) 30 mg (1.5 x 20 mg) PO DAILY water 05/13/24 06/21/24 Rx pill #30 tabs losartan 100 mg tablet (Cozaar) 100 mg PO DAILY blood pressure #30 05/13/24 06/21/24 Rx tabs metoprolol succinate 100 mg 50 mg (1/2 x 100 mg) PO DAILY 05/13/24 06/21/24 Rx tablet,extended release 24 hr blood pressure #15 tabs omeprazole 20 mg capsule,delayed 20 mg PO DAILY acid reflux #30 caps 05/13/24 06/21/24 Rx release ondansetron HCl 4 mg tablet 4 mg PO Q8H PRN nausea and 05/13/24 Unknown Rx vomiting #30 tabs mirtazapine 7.5 mg tablet 7.5 mg PO QHS sleep #30 tabs 06/10/24 06/21/24 Rx venlafaxine 150 mg 150 mg PO DAILY #30 caps 06/10/24 06/21/24 Rx capsule,extended release 24 hr (Effexor XR) carbidopa ER 50 mg-levodopa 200 mg See Rx Instructions PO TID 06/11/24 06/21/24 Rx tablet,extended release parkinsons #150 tabs levetiracetam 500 mg tablet 500 mg PO BID seizures #60 tabs 06/11/24 06/21/24 Rx (Keppra) polyethylene glycol 3350 17 4 g PO DAILY stool softener #119 06/11/24 Unknown Rx gram/dose oral powder (Miralax) grams Allergy/AdvReac Type Severity Reaction Status Date / Time aspirin Allergy Hives Verified 06/22/24 04:18 dicyclomine Allergy Itching Verified 06/22/24 04:18 ibuprofen Allergy Hives Verified 06/22/24 04:18 ketorolac tromethamine (From Allergy Angioedema Verified 06/22/24 04:18 Toradol) nut - unspecified Allergy Hives Verified 06/22/24 04:18 Penicillins (PCN) Allergy Hives Verified 06/22/24 04:18 tramadol HCl (From Ultram) Allergy Angioedema Verified 06/22/24 04:18 Family History Brother Myocardial infarction Asthma Mental disorder Psychiatric care Suicide attempt Father Colon cancer Brother Mental disorder Aunt Parkinson disease Sister Breast cancer Cervical cancer Ovarian cancer Sister Cervical cancer Ovarian cancer Mother Cancer leukemia History of blood clots Hypertension Surgical History History of cardiac catheterization History of lumpectomy of left breast History of esophagogastroduodenoscopy (EGD) History of cholecystectomy History of left heart catheterization (LHC) (~04/22/21) S/P lumpectomy, left breast History of left breast biopsy History of hysterectomy Hx of appendectomy Social History household members: other details: assisted living housing: assisted living facility current occupational status: unemployed Smoking Status: Former smoker quit date: 01/21/16 pack-years: 32 Electronic Cigarette Use: not used second hand exposure: Yes alcohol intake: never substance use type: does not use do you feel safe at home: No Vital Signs Vital Signs Vital Signs: 06/22/24 03:50 06/22/24 03:50 06/22/24 03:56 Temperature Temperature Source Pulse Rate 79 83 Pulse Strength Respiratory Rate 12 18 Respiratory Effort Respiratory Depth Respiratory Pattern Blood Pressure 175/124 H 176/100 H Blood Pressure Mean 141 125 Blood Pressure Source Blood Pressure Position Blood Pressure Location Pulse Ox 99 98 97 Oxygen Delivery Method Nasal Cannula Nasal Cannula Oxygen Flow Rate (L/min) 3 3 06/22/24 04:04 06/22/24 04:20 06/22/24 04:49 Temperature 0 F L Temperature Source Oral Pulse Rate 83 78 79 Pulse Strength Respiratory Rate 18 17 17 Respiratory Effort Respiratory Depth Respiratory Pattern Blood Pressure 176/100 H 134/73 H 175/125 H Blood Pressure Mean 125 93 141 Blood Pressure Source Blood Pressure Position Blood Pressure Location Pulse Ox 97 99 98 Oxygen Delivery Method Nasal Cannula Nasal Cannula Oxygen Flow Rate (L/min) 3 3 06/22/24 05:00 06/22/24 05:00 06/22/24 05:30 Temperature Temperature Source Pulse Rate 68 68 67 Pulse Strength Respiratory Rate 18 16 17 Respiratory Effort Respiratory Depth Respiratory Pattern Blood Pressure 154/124 H 156/124 H 168/107 H Blood Pressure Mean 134 134 127 Blood Pressure Source Blood Pressure Position Blood Pressure Location Pulse Ox 98 98 97 Oxygen Delivery Method Nasal Cannula Room Air Nasal Cannula Oxygen Flow Rate (L/min) 3 3 06/22/24 05:51 06/22/24 05:51 06/22/24 06:00 Temperature 98.4 F 98.4 F Temperature Source Oral Pulse Rate 66 69 68 Pulse Strength Respiratory Rate 18 17 14 Respiratory Effort Respiratory Depth Respiratory Pattern Blood Pressure 168/107 H 168/107 H 174/92 H Blood Pressure Mean 127 127 119 Blood Pressure Source Blood Pressure Position Blood Pressure Location Pulse Ox 97 97 97 Oxygen Delivery Method Nasal Cannula Nasal Cannula Oxygen Flow Rate (L/min) 3 3 06/22/24 06:55 06/22/24 07:32 06/22/24 08:00 Temperature 98.0 F 97.0 F L Temperature Source Temporal Temporal Pulse Rate 66 61 Pulse Strength Respiratory Rate 18 18 Respiratory Effort Respiratory Depth Respiratory Pattern Blood Pressure 119/74 114/81 H Blood Pressure Mean 89 92 Blood Pressure Source Monitor Blood Pressure Position Semi-Fowlers Blood Pressure Location Right Arm Pulse Ox 100 99 99 Oxygen Delivery Method Nasal Cannula Nasal Cannula Nasal Cannula Oxygen Flow Rate (L/min) 3 3 3 06/22/24 08:04 06/22/24 08:08 06/22/24 08:15 Temperature 96.4 F L Temperature Source Temporal Pulse Rate 64 Pulse Strength Normal (2+) Respiratory Rate 18 Respiratory Effort Normal Non-Labored Respiratory Depth Normal Respiratory Pattern Normal Blood Pressure 117/68 Blood Pressure Mean 84 Blood Pressure Source Monitor Blood Pressure Position Semi-Fowlers Blood Pressure Location Right Arm Pulse Ox 99 Oxygen Delivery Method Nasal Cannula Nasal Cannula Oxygen Flow Rate (L/min) 3 3 06/22/24 09:13 Temperature 96.5 F L Temperature Source Temporal Pulse Rate 69 Pulse Strength Respiratory Rate 18 Respiratory Effort Respiratory Depth Respiratory Pattern Blood Pressure 116/74 Blood Pressure Mean 88 Blood Pressure Source Monitor Blood Pressure Position Semi-Fowlers Blood Pressure Location Right Arm Pulse Ox 100 Oxygen Delivery Method Nasal Cannula Oxygen Flow Rate (L/min) 3 Weight Weight: 128.2 kg Body Mass Index (BMI) 45.6 EEG Results Procedure Details EEG Procedure Details: LUIS A CUMMINGS is a 58 year old F with a past medical history of , who presents for evaluation of Electroencephalogram on DATE at TIME Physical Exam Neuro Neuro Narrative: awake alert oriented x3 left eye covered due corneal injury face symmetric b/l intentional tremors mild decrease in sensation in the right move all ex antigravity Lab / Micro Data 06/22/24 04:31 06/22/24 04:31 Labs: Laboratory Results - last 24 hr 06/22/24 04:31: WBC 7.2, RBC 3.27 L, Hgb 6.9 L, Hct 24.6 L, MCV 75.2 L, MCH 21.1 L, MCHC 28.0 L, RDW Std Deviation 42.8, RDW Coeff of Immanuel 15.7 H, Plt Count 222, MPV 9.5, Immature Gran % (Auto) 0.300, Neut % (Auto) 69.6, Lymph % (Auto) 20.2, [place] % (Auto) 7.5, Eos % (Auto) 1.8, Baso % (Auto) 0.6, Absolute Neuts (auto) 5.0, Absolute Lymphs (auto) 1.46, Nucleated RBC % 0, PT 14.9, INR 1.2, APTT 33.7, Sodium 135 L, Potassium 4.0, Chloride 100, Carbon Dioxide 30.0, Anion Gap 6, BUN 16, Creatinine 0.89, Estim Creat Clear Calc 96.46, Est GFR (MDRD) Af Amer 84, Est GFR (MDRD) Non-Af 69, BUN/Creatinine Ratio 18.1, Glucose 121 H, H emoglobin A1c 6.0 H, Calcium 8.5, Troponin I High Sens 4, Triglycerides 91, Cholesterol 176, LDL Cholesterol 102, VLDL Cholesterol 18, HDL Cholesterol 56, T SH 4.000 H 06/22/24 05:37: Urine Color Yellow, Urine Clarity Clear, Urine pH 7.0, Ur Specific [place] 1.005, Urine Protein 15 H, Urine Glucose (UA) Normal, Urine Ketones Negative, Urine Occult Blood 150 H, Urine Nitrite Negative, Urine Bilirubin Negative, Urine Urobilinogen Normal, Ur Leukocyte Esterase Negative, Urine RBC 10-25 SEEN, Urine WBC 0 SEEN, Ur Squamous Epith Cells 0 SEEN, Urine Bacteria 0 SEEN, Urine Mucus 0 SEEN 06/22/24 06:00: Blood Type A POSITIVE, Antibody Screen NEGATIVE, Crossmatch See Detail Rhythm Strip Rhythm Strip: Sinus Rhythm Rate: 80 Ectopy: None Imaging Radiology Impression Brain CT 06/22/24 03:50 IMPRESSION: NO CT evidence of acute intracranial hemorrhage. N.B. : The above Results were Read Back by Dodie Arceo MD to Burak Cornelius MD, and understanding confirmed on 06/22/2024 04:08:05 (ET). Electronically Signed: Dodie Arceo MD at 4:07 EST , Head/Neck CTA 06/22/24 03:50 IMPRESSION: No CTA evidence for hemodynamically significant stenosis, aneurysm or thrombosis. N.B. : The above Results were Read Back by Dodie Arceo MD to Burak Cornelius MD, and understanding confirmed on 06/22/2024 04:32:19 (ET). Electronically Signed: Dodie Arceo MD at 4:33 EST , ADDENDUM: 06/22/24 0440 IMPRESSION: No CTA evidence for hemodynamically significant stenosis, aneurysm or thrombosis. N.B. : The above Results were Read Back by Dodie Arceo MD to Burak Cornelius MD, and understanding confirmed on 06/22/2024 04:32:19 (ET). Electronically Signed: Dodie Arceo MD at 4:33 EST , Abdomen/Pelvis CT 06/22/24 04:23 IMPRESSION: 1. Both kidneys excrete contrast secondary to recent CTA of the head and neck. There is no definite evidence for acute obstructive uropathy. However a small calculus may not be visualized. 2. Status post cholecystectomy. 3. Sequela of right-sided renal insufficiency. Electronically Signed: Dodie Arceo MD at 6:51 EST , Chest X-Ray 06/22/24 05:00 IMPRESSION: No acute cardiopulmonary abnormality. No interval change. Electronically Signed: Faisal Cruz MD at 8:24 EST , Active Medications Active Medications Active Medications: Current Medications Generic Name Dose Route Start Last Admin Trade Name Freq PRN Reason Stop Dose Admin Acetaminophen 650 mg 06/22/24 07:06 Acetaminophen 325 Mg Tablet PO Q6H PRN PRN Pain 1-10 Or Fever>100.7 Albuterol Sulfate 2.5 mg 06/22/24 07:10 Albuterol 2.5 Mg/3 Ml Vial.Neb. INHALATION Q4H PRN shortness of breath or wheezing Apixaban 5 mg 06/22/24 10:00 06/22/24 09:14 Apixaban 5 Mg Tablet PO 5 mg BID LOULOU Administration Carbidopa/Levodopa 2 tablet 06/22/24 07:30 06/22/24 08:02 Carbidopa/Levodopa Cr 50/200 Tablet PO 2 tablet 0730,2200 LOULOU Administration Carbidopa/Levodopa 1 tablet 06/22/24 11:30 Carbidopa/Levodopa Cr 50/200 Tablet PO 1130 LOULOU Hydralazine HCl 5 mg 06/22/24 07:06 Hydralazine 20 Mg/Ml Vial IV 06/23/24 07:06 Q30M PRN maintain BP parameters with HR <60 Sodium Chloride 500 mls @ 15 mls/hr 06/22/24 06:33 IV .[id number] PRN Saline Flush Sodium Chloride 500 mls @ 15 mls/hr 06/22/24 06:33 IV .[id number] PRN Additional IVPB Infusion Labetalol HCl 20 mg 06/22/24 03:50 Labetalol (Prefilled) 20 Mg/4 Ml Vial IV 06/23/24 03:50 X1 PRN BLOOD PRESSURE Labetalol HCl 10 - 20 mg 06/22/24 07:06 Labetalol (Prefilled) 20 Mg/4 Ml Vial IV 06/23/24 07:06 Q10M PRN PRN maintain BP parameters with HR >/=60 Levetiracetam 500 mg 06/22/24 10:00 06/22/24 09:14 Levetiracetam 500 Mg Tablet PO 500 mg BID LOULOU Administration Lorazepam 1 mg 06/22/24 10:00 06/22/24 08:02 Lorazepam 1 Mg Tablet PO 1 mg BID LOULOU Administration Lorazepam 1 mg 06/22/24 07:18 Lorazepam 1 Mg Tablet PO Q4H PRN ANXIETY Methadone HCl 10 mg 06/22/24 07:06 06/22/24 08:02 Methadone 10 Mg Tablet PO 10 mg Q8 LOULOU Administration Mirtazapine 7.5 mg 06/22/24 22:00 Mirtazapine 15 Mg Tablet PO QHS LOULOU Nutritional Formula (Lactose Free) 120 ml 06/22/24 10:00 06/22/24 09:13 Ensure Plus High Protein 120 Ml Liquid PO 120 ml 4X/DAY LOULOU Administration Ondansetron HCl 4 mg 06/22/24 07:09 Ondansetron Odt 4 Mg Tablet PO Q8H PRN NAUSEA/VOMITING Oxycodone HCl 15 mg 06/22/24 10:00 06/22/24 09:13 Oxycodone 5 Mg Tablet PO 15 mg Q4 LOULOU Administration Pantoprazole Sodium 20 mg 06/22/24 10:00 06/22/24 09:14 Pantoprazole Sodium 20 Mg Tablet PO 20 mg DAILY LOULOU Administration Sodium Chloride 10 - 40 ml 06/22/24 06:33 06/22/24 08:00 0.9% Saline Lock 10 Ml Syringe IV 10 ml UD PRN Administration SALINE FLUSH Venlafaxine HCl 150 mg 06/22/24 10:00 06/22/24 09:13 Venlafaxine Xr 150 Mg Capsule PO 150 mg DAILY LOULOU Administration
--- NOTE | 2024-06-22 16:28 | PCM.PN.BLA ---
Progress Note Still having some right-sided flank pain, unfortunately CT of the abdomen and pelvis could not show a kidney stone because of the previous CTA of the head and neck. She will need to see ophthalmology on discharge for her left eye, she states that she had a Parkinson's tremor and long fingernails. CVA was ruled out.
[2024-06-22] MEDS: Ciprofloxacin 0.3% 2.5ml Bottle 2 DRP LEFT EYE ×2 (19:00→23:19)
[2024-06-22] MEDS: Mirtazapine 15 MG Tablet 7.5 MG PO (20:42)
[2024-06-23] MEDS: oxyCODONE 5 MG Tablet 15 MG PO ×4 (01:57→14:35)
[2024-06-23 02:00] VITALS: BP 116/72; PULSE 62; RESP 16; TEMP 36.6; O2SAT 98
[2024-06-23] MEDS: Ciprofloxacin 0.3% 2.5ml Bottle 2 DRP LEFT EYE ×2 (05:42→12:02)
[2024-06-23] MEDS: Methadone 10 MG Tablet PO ×2 (05:42→14:35)
[2024-06-23 06:41] LABS: Hematocrit 30.6 % (37-47); Hemoglobin 8.4 g/dL (12.0-15.0); Mean Corp Hgb Conc 27.5 g/dL (32-36); Mean Corpuscular Hgb 21.9 pg (27.0-32.0); Mean Corpuscular Volume 79.9 fL (81-99); Mean Platelet Vol. 10.4 fl (6.2-12.0); Platelet Count 236 K/mm3 (150-450); Red Blood Count 3.83 M/mm3 (4.2-5.4); White Blood Count 8.6 K/mm3 (4.4-11.0)
[2024-06-23 06:52] VITALS: O2SAT 96
[2024-06-23 07:02] LABS: Anion Gap 2 (5-15); BUN 15 mg/dL (7-18); BUN/Creat Ratio 16.3 RATIO (10-20); Chloride 102 mmol/L (98-107); Creatinine, Serum 0.92 mg/dL (0.55-1.02); EST Glomerular Filtration Rate 66 mL/min (>60); Est Glom Filt Rate - Afr Amer 80 mL/min (>60); Glucose 103 mg/dL (74-106); Potassium 4.5 mmol/L (3.5-5.1); Sodium Level 137 mmol/L (136-145)
[2024-06-23 08:30] VITALS: BP 98/68; PULSE 60; RESP 18; TEMP 36.3; O2SAT 97
[2024-06-23] MEDS: Pantoprazole Sodium 20 MG Tablet PO (08:32)
[2024-06-23] MEDS: levETIRAcetam 500 MG Tablet PO (08:32)
[2024-06-23] MEDS: Venlafaxine XR 150 MG Capsule PO (08:33)
[2024-06-23] MEDS: CARBIDOPA/LEVODOPA CR 50/200 Tablet PO ×2 (08:33→12:02)
[2024-06-23] MEDS: APIXABAN 5 MG TABLET PO (08:33)
[2024-06-23] MEDS: LORazepam 1 MG Tablet PO (08:33)
[2024-06-23] MEDS: Ensure Plus High Protein 120 ML LIQUID PO ×2 (08:33→14:36)
--- NOTE | 2024-06-23 09:54 | ECHOLC_ITS ---
Reason For Study: cva Procedure This was a limited 2D transthoracic echocardiogram. Exam performed portable in patient room. Left Ventricle Normal LV size. The estimated ejection fraction is 60 %. No regional wall motion abnormalities noted. Right Ventricle Normal right ventricle. Normal systolic function. Atria Normal left atrium. Normal right atrium. No doppler evidence for ASD. Bubble contrast study negative for right to left interatrial shunt. Mitral Valve There is no mitral valve stenosis. Tricuspid Valve There is no tricuspid stenosis. Aortic Valve Trisinus/trileaflet aortic valve. There is no aortic stenosis. Great Vessels Normal aortic root. Pericardium/Pleural No pericardial effusion. Medication Performed a rapid injection of agitated mix of 9 cc saline and 1cc air to assess for atrial septal defect. Bubble study attempted X3. MMode/2D Measurements & Calculations LVIDd: 5.6 cm IVSd: 1.2 cm LAV(MOD-bp): 40.4 ml LVIDs: 3.7 cm LVPWd: 0.94 cm LAV(MOD-bp) Indexed: 17.4 ml/m2 FS: 33.0 % LAV(MOD-sp2): 38.7 ml LAV(MOD-sp4): 38.1 ml LA dimension(2D): 3.6 cm LA A4 area: 15.2 cm2 RA A4 area: 11.9 cm2 ECHO/Echo, Limited Study Interpretation Summary The estimated ejection fraction is 60 %. Ordering Physician: Nick Romano Referring Physician: Ysabel Ruffin Performed By: Belem Braden and Student
[2024-06-23 09:57] VITALS: BP 112/71
--- NOTE | 2024-06-23 10:03 | PCM.PN.HOSP ---
Reason for Visit Reason for Visit: Diagnoses Anemia, unspecified (06/22/24) Hemiplegia, unspecified affecting right dominant side (06/22/24) Objective Data Objective Data Vital Signs: Vital Signs Temp Pulse Resp BP Pulse Ox O2 Del Method O2 Flow Rate 97.4 F L 60 18 112/71 97 Nasal Cannula 2 06/23/24 08:30 06/23/24 08:30 06/23/24 08:30 06/23/24 09:57 06/23/24 08:30 06/23/24 08:30 06/23/24 08:30 Oxygen Flow Rate (L/min) 2 Oxygen Delivery Method Nasal Cannula Weight: 282 lb 10.122 oz Body Mass Index (BMI) 45.6 Intake & Output: Intake and Output for Last 24 Hours 06/21/24 06/22/24 06/23/24 23:59 23:59 23:59 Intake Total 1100 / 1900 1200 / 1200 Output Total 200 / 600 1100 / 1100 Balance 900 / 1300 100 / 100 Lab / Micro Data 06/23/24 06:13 06/23/24 06:13 Labs: Laboratory Results - last 24 hr 06/22/24 06:00: Crossmatch See Detail 06/23/24 06:13: WBC 8.6, RBC 3.83 L, Hgb 8.4 L, Hct 30.6 L, MCV 79.9 L D, MCH 21.9 L, MCHC 27.5 L, RDW Std Deviation 48.0 H, RDW Coeff of Immanuel 17.0 H, Plt Count 236, MPV 10.4, Sodium 137, Potassium 4.5, Chloride 102, Carbon Dioxide 32.0, Anion Gap 2 L, BUN 15, Creatinine 0.92, Estim Creat Clear Calc 91.40, Est GFR (MDRD) Af Amer 80, Est GFR (MDRD) Non-Af 66, BUN/Creatinine Ratio 16.3, Glucose 103, Calcium 9.0 Radiography Diagnostic Testing: Radiology Impression Brain MRI 06/22/24 06:02 IMPRESSION: 1. No acute intracranial abnormality. 2. Empty sella and prominent optic sheaths raises possibility of intracranial hypertension. Electronically Signed: Faisal Cruz MD at 14:35 EST , Rhythm Strip Rhythm Strip: Sinus Rhythm Rate: 80 Ectopy: None Physical Exam Narrative Seen and examined History of myoclonus, had a syndrome for about 5 years. Also has Parkinson disease. Patient has shakiness, jerking movement of extremities, required 1 person support MRI negative for acute stroke/infarct. She also scratched her left eye accidentally. Physical exam General: Alert, Oriented x3, Cooperative. Morbid obesity BMI 44.6 kg/m? HEENT: Atraumatic, PERRLA, EOMI, Normocephalic. Left eye covered. Photophobia Oral: No Gingival or Mucosal Lesions/ Ulcerations Neck: Supple, No JVD, Negative Carotid Bruits Chest wall/Lungs: Air entry diminished in bilateral lung bases. No crepitation/rhonchi Cardiovascular: Regular rate, Regular Rhythm, Normal S1, Normal S2, No M/G/R Abdomen: Bowel Sounds Present, Soft, Non Tender, Non-Distended : No dysuria. No renal angle tenderness. No suprapubic tenderness. Extremities: No edema, Capillary Refill Less than 3 Seconds Skin: No rashes, No breakdown Musculoskeletal: No Tenderness to Palpation of Joints or Extremities Neurological: Baseline impaired gait instability, decreased strength, balance. Using wheeled walker for transfer. Myoclonus and jerky movements. Psych/Mental Status: Baseline flat affect. Assessment & Plan Assessment/Plan (1) Acute right hemiparesis: (2) Anemia: PLAN: Plan Patient is a 58-year-old female who presented [facility] ED on 06/22/2024 with strokelike symptoms. 1. Strokelike symptoms, CVA rule out ? Admit under observation status to PCU. Teleneurology consulted. PT/OT/case management consulted. On a stroke order set as per protocol. BP in glucose control as per stroke protocol. CT brain and CTA head/neck negative. MRI brain negative for acute stroke. TSH 4.0. FLP LDL 102, HDL 56 within normal limit. A1c 6.0. 2. Mild acute on chronic iron deficiency anemia ? Hemoglobin 6.9 on admit. Patient hemoglobin was 6.4 in December 2023. Has intermittent bleeding per rectum as per her PCP. She is wheelchair-bound. 12/2 most recent today 8.4. Was transfused 1 unit of PRBC. 3. Microscopic hematuria with concern for nephrolithiasis ? UA on admit showed 150 occult blood, 10-25 RBCs, otherwise unremarkable. CT abdomen pelvis reported no definite evidence of acute obstructive uropathy. Status postcholecystectomy. 4. 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 Follows with outpatient neurology. PT/OT/case management consulted as above. Continue home carbidopa?levodopa, scheduled Ativan and levetiracetam. 5. Chronic pain ? Follows with outpatient palliative care. Continue home methadone 10 mg every 8 hours and oxycodone 15 mg every 4 hours scheduled. Notably OARRS was reviewed for these medications as well as Ativan noted above. 6. Anxiety and depression ? Follows with outpatient psychiatry. Continue home Ativan, venlafaxine and mirtazapine at night. 7. COPD with chronic respiratory failure ? Stable on home 3 L nasal cannula here, not in acute exacerbation. Continue home albuterol inhaler as needed. 8. History of VTE ? Continue home Eliquis. 9. Hypertension ? Holding home losartan and Toprol for now to allow for permissive hypertension. 10. GERD ? Continue home PPI. 11. Morbid obesity ? BMI 47 on admit. Complicates hospital course, care and prognosis. DVT prophylaxis: Not indicated, on Eliquis CODE STATUS: Full code, unverified Might need rehab because of gait instability, decreased strength, wheelchair-bound. Charges/Coding Visit Charges Inpatient E&M: 60408 Subs Hosp L2
[2024-06-23 10:53] VITALS: O2SAT 97
[2024-06-23 13:17] VITALS: BMI 45.6
--- NOTE | 2024-06-23 13:31 | DCINST_ITS ---
Discharge Instructions Follow Up Care Test Results: Test results from this visit will be discussed in further detail at your follow- up appointment, if applicable. Discharge Plan Admission Admit Date/Time: 06/22/24 05:52 Attending Provider: Nick Romano Primary Care Provider: Ysabel Ruffin Consulting Providers: Crow Qiu; Wilian Rodriguez; Prachi Delgado; Donya Chacon; Mercedes Quinones; Orlaia Vazquez; David Flores; Tammy Cobos; Colton Chavez; Manva Davis; Trevor Jade; Ananya Downey; Oli Greco; Katherin Amaral; Kaiden Ferrari; Roxy Méndez; Sravan Turner; Mathew Cornejo; Jose Juan Blake; Ophelia Barker; Destiny Ennis; George Mckeon Discharge Orders/Prescriptions Prescriptions: No Action sennosides [senna] 8.6 mg tablet 8.6 mg PO BID methadone 5 mg tablet 10 mg PO Q8H oxycodone 10 mg tablet 15 mg PO Q4H Rx Instructions: one tab q4hrs routine and q1hr PRN for pain/SOB lorazepam [Ativan] 0.5 mg tablet 1 mg PO Q6H Rx Instructions: take one tablet q12hrs routinely and q4hrs prn anxiety (DME) compr.stocking,thigh,reg,x-lrg Misc See Rx Instructions .Route Qty: 24 0RF Rx Instructions: As directed miscellaneous medical supply Kit 1 ea miscellaneous DAILY Qty: 1 0RF Rx Instructions: Motorized wheelchair miscellaneous medical supply Misc 1 ea miscellaneous DAILY Qty: 1 0RF Rx Instructions: Hospital Bed miscellaneous medical supply Misc 1 ea miscellaneous DAILY Qty: 1 0RF Rx Instructions: lift chair Eliquis 5 mg tablet 5 mg PO BID Qty: 60 1RF losartan [Cozaar] 100 mg tablet 100 mg PO DAILY Qty: 30 1RF metoprolol succinate 100 mg tablet extended release 24 hr 50 mg PO DAILY Qty: 15 1RF Patient Comments: TAKE (1) TABLET BY MOUTH ONCE DAILY Rx Instructions: Hold for heart less than 60 or systolic blood pressure less than 100 mmHg. omeprazole 20 mg capsule,delayed release(DR/EC) 20 mg PO DAILY Qty: 30 1RF ondansetron HCl 4 mg tablet 4 mg PO Q8H PRN (Reason: nausea and vomiting) Qty: 30 1RF albuterol sulfate 90 mcg/actuation HFA aerosol inhaler 2 puff inhalation Q6H PRN (Reason: shortness of breath or wheezing) Qty: 8.5 1RF furosemide [Lasix] 20 mg tablet 30 mg PO DAILY Qty: 30 1RF mirtazapine 7.5 mg tablet 7.5 mg PO QHS Qty: 30 0RF venlafaxine [Effexor XR] 150 mg capsule,extended release 24hr 150 mg PO DAILY Qty: 30 0RF levetiracetam [Keppra] 500 mg tablet 500 mg PO BID Qty: 60 0RF carbidopa-levodopa 50-200 mg tablet extended release See Rx Instructions PO TID Qty: 150 0RF Rx Instructions: orally three times a day; take 2 tablets morning, 1 tablet at lunch and 2 tablets at bedtime polyethylene glycol 3350 [Miralax] 17 gram/dose powder 4 g PO DAILY Qty: 119 0RF Referrals / Follow Up: Ysabel Ruffin MD [Primary Care Provider] -
--- NOTE | 2024-06-23 13:45 | CASEMGMT ---
Addendum entered by Ivy Ya 06/23/24 15:12: PAT ALBA received call back from [facility] and they are able to accept patient with planned start of care for Sunday. PAT ALBA updated patient regarding [facility] acceptance and start of care. Patient voiced appreciation. Patient has hoem oxygen through [employer] and has portable tank that family will bring in at discharge. Patient had no further questions or concerns. Discharge plan updated. Original Note: PAT ALBA updated by hospitalist that patient will discharge today. PAT ALBA reviewed therapy notes recommending additinal therapy at disharge. PAT CM in to discuss needs at discharge and progress with therapy. Patient states she lives with brother and sister in law who are able to assist patient. Patient states she has walker at home. Patient voiced interests in [facility] and prefers [facility] as she has had them in the past, patient declined list. PAT ALBA made referral to [facility], awaiting acceptance. CM will continue to follow this patient and plan for a safe discharge.
[2024-06-23 14:30] VITALS: BP 121/80; PULSE 67; RESP 18; TEMP 36.4; O2SAT 98
--- NOTE | 2024-06-23 15:08 | DCINST_ITS ---
Discharge Instructions Diet Discharge Diet: Low fat / Low cholesterol and 2000 mg Sodium Diet DC O2, CPAP, BIPAP needs Additional Home O2 Discharge instructions: No Dressing / Incision Discharge Activity: Return to Normal Activity Weight Bearing Status: Weight bearing as tolerated Dressing / Incision Call your doctor if you observe: Fever of 101 or Higher, Coldness, Increased Pain, Numbness or Tingling, Change in Color, Inability to urinate, Inability to have a bowel movement, Shortness of breath, Dizziness, Fainting spells, Swelling in the ankles, Chest pain, Prolonged hiccupping, Increased palpitations (irregular heartbeat) and Calf discomfort Follow Up Care When: IN 2 WEEKS Test Results: Test results from this visit will be discussed in further detail at your follow- up appointment, if applicable. Discharge Plan Admission Admit Date/Time: 06/22/24 05:52 Attending Provider: Nick Romano Primary Care Provider: Ysabel Ruffin Consulting Providers: Crow Qiu; Wilian Rodriguez; Prachi Delgado; Donya Chacon; Mercedes Quinones; Oralia Vazquez; David Flores; Tammy Cobos; Colton Chavez; Manav Davis; Trevor Jade; Ananya Downey; Oli Greco; Katherin Amaral; Kaiden Ferrari; Roxy Méndez; Sravan Turner; Mathew Cornejo; Jose Juan Blake; Ophelia Barker; Destiny Ennis; George Mckeon Discharge Orders/Prescriptions Prescriptions: New ciprofloxacin HCl 0.3 % Drops 2 drp LEFT EYE Q6 7 Days Qty: 10 0RF rosuvastatin 10 mg tablet 10 mg PO DAILY 30 Days Qty: 30 2RF ferrous sulfate 325 mg (65 mg iron) tablet 325 mg PO QODAY Qty: 30 2RF Continued sennosides [senna] 8.6 mg tablet 8.6 mg PO BID methadone 5 mg tablet 10 mg PO Q8H oxycodone 10 mg tablet 15 mg PO Q4H Rx Instructions: one tab q4hrs routine and q1hr PRN for pain/SOB lorazepam [Ativan] 0.5 mg tablet 1 mg PO Q6H Rx Instructions: take one tablet q12hrs routinely and q4hrs prn anxiety (DME) compr.stocking,thigh,reg,x-lrg Misc See Rx Instructions .Route Qty: 24 0RF Rx Instructions: As directed miscellaneous medical supply Kit 1 ea miscellaneous DAILY Qty: 1 0RF Rx Instructions: Motorized wheelchair miscellaneous medical supply Misc 1 ea miscellaneous DAILY Qty: 1 0RF Rx Instructions: Hospital Bed miscellaneous medical supply Misc 1 ea miscellaneous DAILY Qty: 1 0RF Rx Instructions: lift chair Eliquis 5 mg tablet 5 mg PO BID Qty: 60 1RF losartan [Cozaar] 100 mg tablet 100 mg PO DAILY Qty: 30 1RF metoprolol succinate 100 mg tablet extended release 24 hr 50 mg PO DAILY Qty: 15 1RF Patient Comments: TAKE (1) TABLET BY MOUTH ONCE DAILY Rx Instructions: Hold for heart less than 60 or systolic blood pressure less than 100 mmHg. omeprazole 20 mg capsule,delayed release(DR/EC) 20 mg PO DAILY Qty: 30 1RF ondansetron HCl 4 mg tablet 4 mg PO Q8H PRN (Reason: nausea and vomiting) Qty: 30 1RF albuterol sulfate 90 mcg/actuation HFA aerosol inhaler 2 puff inhalation Q6H PRN (Reason: shortness of breath or wheezing) Qty: 8.5 1RF furosemide [Lasix] 20 mg tablet 30 mg PO DAILY Qty: 30 1RF mirtazapine 7.5 mg tablet 7.5 mg PO QHS Qty: 30 0RF venlafaxine [Effexor XR] 150 mg capsule,extended release 24hr 150 mg PO DAILY Qty: 30 0RF levetiracetam [Keppra] 500 mg tablet 500 mg PO BID Qty: 60 0RF carbidopa-levodopa 50-200 mg tablet extended release See Rx Instructions PO TID Qty: 150 0RF Rx Instructions: orally three times a day; take 2 tablets morning, 1 tablet at lunch and 2 tablets at bedtime polyethylene glycol 3350 [Miralax] 17 gram/dose powder 4 g PO DAILY Qty: 119 0RF Referrals / Follow Up: Ysabel Ruffin MD [Primary Care Provider] - Within 2 Weeks Chapincito Castro MD [Non-Staff -Ordering Privileges] - Within 1 Month Disposition Disposition (needs filled in before D/C Order can be placed): Home Health Service
--- NOTE | 2024-06-23 15:21 | DS.PCM_ITS ---
Providers Date of Admission: 06/22/24 Date of Discharge: 06/23/24 Primary Care Physician: Dr. Ysabel Ruffin MD Consultations 06/22/24 07:06 Consult: Tele-Neurology Routine Consulting Provider: [facility] Reason for Consult: Acute Ischemic Stroke/TIA EMERGENT Consult: No MD Notified: Yes Date Notified: 06/22/24 Time Notified: 07:41 Method of Notification: Answering Service Nursing Unit Staff Notify [facility] of Tele-Neurology Consult: Yes Reason For Visit: STROKELIKE SYMPTOMS Diagnosis Discharge Diagnosis (1) Acute right hemiparesis: Status: Acute Code(s): G81.91 - Hemiplegia, unspecified affecting right dominant side (2) Anemia: Status: Acute Code(s): D64.9 - Anemia, unspecified Plan Patient is a 58-year-old female who presented [facility] ED on 06/22/2024 with strokelike symptoms. 1. Strokelike symptoms, CVA rule out ? Admit under observation status to PCU. Teleneurology consulted. PT/OT/case management consulted. On a stroke order set as per protocol. BP in glucose control as per stroke protocol. CT brain and CTA head/neck negative. MRI brain negative for acute stroke. TSH 4.0. FLP LDL 102, HDL 56 within normal limit. A1c 6.0. Patient discharged on rosuvastatin 10 mg daily. Neurologist recommend to continue Eliquis which is sufficient for secondary stroke prevention. Follow-up with the neurologist in 1 month 2. Mild acute on chronic iron deficiency anemia ? Hemoglobin 6.9 on admit. Patient hemoglobin was 6.4 in December 2023. Has intermittent bleeding per rectum as per her PCP. She is wheelchair-bound. 06/23 most recent today 8.4. Was transfused 1 unit of PRBC. Prescription for ferrous sulfate sent to patient's pharmacy. 3. Microscopic hematuria with concern for nephrolithiasis ? UA on admit showed 150 occult blood, 10-25 RBCs, otherwise unremarkable. CT abdomen pelvis reported no definite evidence of acute obstructive uropathy. Status postcholecystectomy. 4. 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 Follows with outpatient neurology. PT/OT/case management consulted as above. Continue home carbidopa?levodopa, scheduled Ativan and levetiracetam. 5. Chronic pain ? Follows with outpatient palliative care. Continue home methadone 10 mg every 8 hours and oxycodone 15 mg every 4 hours scheduled. Notably [place] was reviewed for these medications as well as Ativan noted above. 6. Anxiety and depression ? Follows with outpatient psychiatry. Continue home Ativan, venlafaxine and mirtazapine at night. 7. COPD with chronic respiratory failure ? Stable on home 3 L nasal cannula here, not in acute exacerbation. Continue home albuterol inhaler as needed. 8. History of VTE ? Continue home Eliquis. 9. Hypertension ? Holding home losartan and Toprol for now to allow for permissive hypertension. 10. GERD ? Continue home PPI. 11. Morbid obesity ? BMI 47 on admit. Complicates hospital course, care and prognosis. DVT prophylaxis: Not indicated, on Eliquis CODE STATUS: Full code, unverified Discharge home with home health Discharge medication reconciliation done. Discharge follow-up instructions completed. Discharge process discussed with the patient and all questions were answered to patient's satisfaction. Follow with PCP in 1 to 2 weeks Total time spent, exact 35 minutes on discharge meds reconciliation, examination, coordination of care with nurses and ancillary staff, review of imaging and blood test and discussion with the patient on follow-up instructions. Medications at Discharge Home Medications lorazepam 0.5 mg tablet (Ativan) 1 mg PO Q6H anxiety 08/24/22 methadone 5 mg tablet 10 mg PO Q8H pain 08/24/22 oxycodone 10 mg tablet 15 mg PO Q4H 08/24/22 sennosides 8.6 mg tablet (senna) 8.6 mg PO BID stool softener 08/24/22 compr.stocking,thigh,reg,x-lrg #24 ea 01/15/24 miscellaneous medical supply 1 ea miscellaneous DAILY debility #1 ea 01/16/24 miscellaneous medical supply 1 ea miscellaneous DAILY #1 ea 04/29/24 miscellaneous medical supply 1 ea miscellaneous DAILY #1 ea 04/29/24 albuterol sulfate 90 mcg/actuation aerosol inhaler 2 puff inhalation Q6H PRN shortness of breath or wheezing #8.5 grams 05/13/24 apixaban 5 mg tablet (Eliquis) 5 mg PO BID blood thinner #60 tabs 05/13/24 furosemide 20 mg tablet (Lasix) 30 mg (1.5 x 20 mg) PO DAILY water pill #30 tabs 05/13/24 losartan 100 mg tablet (Cozaar) 100 mg PO DAILY blood pressure #30 tabs 05/13/24 metoprolol succinate 100 mg tablet,extended release 24 hr 50 mg (1/2 x 100 mg) PO DAILY blood pressure #15 tabs 05/13/24 omeprazole 20 mg capsule,delayed release 20 mg PO DAILY acid reflux #30 caps 05/13/24 ondansetron HCl 4 mg tablet 4 mg PO Q8H PRN nausea and vomiting #30 tabs 05/13/24 mirtazapine 7.5 mg tablet 7.5 mg PO QHS sleep #30 tabs 06/10/24 venlafaxine 150 mg capsule,extended release 24 hr (Effexor XR) 150 mg PO DAILY #30 caps 06/10/24 carbidopa ER 50 mg-levodopa 200 mg tablet,extended release See Rx Instructions PO TID parkinsons #150 tabs 06/11/24 levetiracetam 500 mg tablet (Keppra) 500 mg PO BID seizures #60 tabs 06/11/24 polyethylene glycol 3350 17 gram/dose oral powder (Miralax) 4 g PO DAILY stool softener #119 grams 06/11/24 ciprofloxacin HCl 0.3 % eye drops 2 drp LEFT EYE Q6 1 week #10 mL 06/23/24 ferrous sulfate 325 mg (65 mg iron) tablet 325 mg PO QODAY #30 tabs 06/23/24 rosuvastatin 10 mg tablet 10 mg PO DAILY 1 month #30 tabs 06/23/24 Physical Exam Narrative Please see progress note of the same day Weight / BMI Weight Weight: 282 lb 10.122 oz Body Mass Index (BMI) 45.6 ABG / Lab / Microbiology Data 06/23/24 06:13 06/23/24 06:13 Laboratory: Laboratory Results - last 24 hr 06/23/24 06:13: WBC 8.6, RBC 3.83 L, Hgb 8.4 L, Hct 30.6 L, MCV 79.9 L D, MCH 21.9 L, MCHC 27.5 L, RDW Std Deviation 48.0 H, RDW Coeff of Immanuel 17.0 H, Plt Count 236, MPV 10.4, Sodium 137, Potassium 4.5, Chloride 102, Carbon Dioxide 32.0, Anion Gap 2 L, BUN 15, Creatinine 0.92, Estim Creat Clear Calc 91.40, Est GFR (MDRD) Af Amer 80, Est GFR (MDRD) Non-Af 66, BUN/Creatinine Ratio 16.3, Glucose 103, Calcium 9.0 Radiography Diagnostic Testing: Radiology Impression Echocardiogram 06/23/24 09:54 Interpretation Summary The estimated ejection fraction is 60 %. Ordering Physician: Nick Romano Referring Physician: Ysabel Ruffin Performed By: Belem Braden and Student D/C Instructions Discharge Diet: Low fat / Low cholesterol and 2000 mg Sodium Diet Weight Bearing Status: Weight bearing as tolerated Call your doctor if you observe: Fever of 101 or Higher, Coldness, Increased Pain, Numbness or Tingling, Change in Color, Inability to urinate, Inability to have a bowel movement, Shortness of breath, Dizziness, Fainting spells, Swelling in the ankles, Chest pain, Prolonged hiccupping, Increased palpitations (irregular heartbeat) and Calf discomfort DC O2, CPAP, BIPAP Needs Additional Home O2 Discharge instructions: No DC home with Oxygen: No When: IN 2 WEEKS Meaningful Use Info Meaningful Use Meaningful Use Diagnoses (Choose all that apply): None applicable Ischemic Stroke Statin Dosing Therapy Reference: STATIN DOSE THERAPY REFERENCE: * Patients > 75 years receive moderate or high dose statin therapy. * Patients 75 years or YOUNGER should receive HIGH intensity statin dose unless contraindicated. You will be required to document reason for non-treatment if statin daily dose does not meet guidelines. HIGH DOSE STATIN THERAPY DAILY Atorvastatin > than or = to 40 mg Rosuvastatin > than or = to 20 mg Amlodipine + Atorvastatin > than or = to 2.5/40 mg Ezetimibe + Simvastatin 10/80 mg Simvastatin 80mg Discharge Plan Admission Admit Date/Time: 06/22/24 05:52 Attending Provider: Nick Romano Primary Care Provider: Ysabel Ruffin Consulting Providers: Crow Qiu; Wilian Rodriguez; Prachi Delgado; Donya Chacon; Mercedes Quinones; Oralia Vazquez; David Flores; Tammy Cobos; Colton Chavez; Manav Davis; Trevor Jade; Ananya Downey; Oli Greco; Katherin Amaral; Kaiden Ferrari; Roxy Méndez Phill; Sravan Turner; Mathew Cornejo; Jose Juan Blake; Ophelia Barker; Destiny Ennis; George Mckeon Discharge Orders/Prescriptions Prescriptions: New ciprofloxacin HCl 0.3 % Drops 2 drp LEFT EYE Q6 7 Days Qty: 10 0RF rosuvastatin 10 mg tablet 10 mg PO DAILY 30 Days Qty: 30 2RF ferrous sulfate 325 mg (65 mg iron) tablet 325 mg PO QODAY Qty: 30 2RF Continued sennosides [senna] 8.6 mg tablet 8.6 mg PO BID methadone 5 mg tablet 10 mg PO Q8H oxycodone 10 mg tablet 15 mg PO Q4H Rx Instructions: one tab q4hrs routine and q1hr PRN for pain/SOB lorazepam [Ativan] 0.5 mg tablet 1 mg PO Q6H Rx Instructions: take one tablet q12hrs routinely and q4hrs prn anxiety (DME) compr.stocking,thigh,reg,x-lrg Misc See Rx Instructions .Route Qty: 24 0RF Rx Instructions: As directed miscellaneous medical supply Kit 1 ea miscellaneous DAILY Qty: 1 0RF Rx Instructions: Motorized wheelchair miscellaneous medical supply Misc 1 ea miscellaneous DAILY Qty: 1 0RF Rx Instructions: Hospital Bed miscellaneous medical supply Misc 1 ea miscellaneous DAILY Qty: 1 0RF Rx Instructions: lift chair Eliquis 5 mg tablet 5 mg PO BID Qty: 60 1RF losartan [Cozaar] 100 mg tablet 100 mg PO DAILY Qty: 30 1RF metoprolol succinate 100 mg tablet extended release 24 hr 50 mg PO DAILY Qty: 15 1RF Patient Comments: TAKE (1) TABLET BY MOUTH ONCE DAILY Rx Instructions: Hold for heart less than 60 or systolic blood pressure less than 100 mmHg. omeprazole 20 mg capsule,delayed release(DR/EC) 20 mg PO DAILY Qty: 30 1RF ondansetron HCl 4 mg tablet 4 mg PO Q8H PRN (Reason: nausea and vomiting) Qty: 30 1RF albuterol sulfate 90 mcg/actuation HFA aerosol inhaler 2 puff inhalation Q6H PRN (Reason: shortness of breath or wheezing) Qty: 8.5 1RF furosemide [Lasix] 20 mg tablet 30 mg PO DAILY Qty: 30 1RF mirtazapine 7.5 mg tablet 7.5 mg PO QHS Qty: 30 0RF venlafaxine [Effexor XR] 150 mg capsule,extended release 24hr 150 mg PO DAILY Qty: 30 0RF levetiracetam [Keppra] 500 mg tablet 500 mg PO BID Qty: 60 0RF carbidopa-levodopa 50-200 mg tablet extended release See Rx Instructions PO TID Qty: 150 0RF Rx Instructions: orally three times a day; take 2 tablets morning, 1 tablet at lunch and 2 tablets at bedtime polyethylene glycol 3350 [Miralax] 17 gram/dose powder 4 g PO DAILY Qty: 119 0RF Referrals / Follow Up: Ysabel Ruffin MD [Primary Care Provider] - Within 2 Weeks Chapincito Castro MD [Non-Staff -Ordering Privileges] - Within 1 Month Disposition Disposition (needs filled in before D/C Order can be placed): Home Health Service Charges/Coding Addendum Addendum: Please cancel the billing charge of the progress note on the same date. Visit Charges Inpatient E&M: 57671 Disch Hosp >30min
== END 2024-06-23 15:19 | disposition home health service (06) ==
LOC: ED 05:44 → PCU 06:08
PROVIDERS: Admitting Provider Hospitalist; Emergency Provider Emergency Medicine; PCP Internal Medicine; Visit Provider Internal Medicine
DX: R29.818 Other symptoms and signs involving the nervous system (principal); G20.A1 Parkinson's disease without dyskinesia, without mention of fluctuations; G93.1 Anoxic brain damage, not elsewhere classified; G81.91 Hemiplegia, unspecified affecting right dominant side; J96.10 Chronic respiratory failure, unspecified whether with hypoxia or hypercapnia; I11.0 Hypertensive heart disease with heart failure; I50.32 Chronic diastolic (congestive) heart failure; J44.9 Chronic obstructive pulmonary disease, unspecified; E66.01 Morbid (severe) obesity due to excess calories; Z68.42 Body mass index [BMI] 45.0-49.9, adult; I25.10 Atherosclerotic heart disease of native coronary artery without angina pectoris; Z99.3 Dependence on wheelchair; D50.9 Iron deficiency anemia, unspecified; R53.1 Weakness; R53.81 Other malaise; Z87.891 Personal history of nicotine dependence; E78.5 Hyperlipidemia, unspecified; N20.2 Calculus of kidney with calculus of ureter; Z79.01 Long term (current) use of anticoagulants; Z79.899 Other long term (current) drug therapy; K21.9 Gastro-esophageal reflux disease without esophagitis; F41.9 Anxiety disorder, unspecified; F32.A Depression, unspecified; R31.29 Other microscopic hematuria
CPT/HCPCS: 70450; 36415; 36430; 70496; 70498; 70551; 71045; 74176; 80048; 80061; 81001; 83036; 84443; 84484; 85025; 85027; 85610; 85730; 86850; 86900; 86901; 86920; 92610; 93005; 93308; 94762; 96374; 97162; 97166; 99221; 99285; P9016; P9612; Q9967; A4216; G0378; J2405

== ENCOUNTER 2024-08-12 20:44 | Inpatient (IN) | payer MEDICAID, SELFPAY ==
[2024-08-12 20:44] VITALS: BP 145/91; PULSE 88; RESP 12; TEMP 37.6; O2SAT 97; BMI 48.4
[2024-08-12 20:45] VITALS: BP 145/91; PULSE 88; RESP 18; TEMP 37.6; O2SAT 97
--- NOTE | 2024-08-12 21:24 | RAD_ITS ---
INDICATION: lac between 4th and 5th finger EXAMINATION/TECHNIQUE: X-RAY - LEFT XR Hand Min 3 Views COMPARISON: None. FINDINGS: SOFT TISSUES: Unremarkable. BONES/JOINTS: No fracture or dislocation. Mild degenerative changes. No erosive changes. RAD/Hand Min 3 Views IMPRESSION: No evidence of a foreign body and no acute osseous abnormality. Electronically Signed: Oziel Fisher DO at 22:38 EST ,
--- NOTE | 2024-08-12 21:25 | EKG12_ITS ---
Test Reason : SYNCOPE Blood Pressure : */* mmHG Vent. Rate : 74 BPM Atrial Rate : 74 BPM P-R Int : 176 ms QRS Dur : 98 ms QT Int : 432 ms P-R-T Axes : 78 1 61 degrees QTcB Int : 479 ms Normal sinus rhythm Low voltage QRS Borderline ECG Confirmed by NNEKA BATISTA, HUNTER ([id number]), news video editor PANDA LAWTON ([id number]) on 08/19/2024 7:03:11 AM Referred By: KYLE Confirmed By: HUNTER EARLY MD
[2024-08-12] MEDS: 0.9% Normal Saline (1000mL) 1,000 ML 999 ML IV (21:40)
[2024-08-12] MEDS: Ondansetron 4 MG/2 ML Vial IV (21:40)
[2024-08-12] MEDS: fentaNYL 100 MCG/2 ML Ampul 50 MCG IV ×2 (21:40→23:06)
--- NOTE | 2024-08-12 21:43 | CT_ITS ---
INDICATION: Trauma EXAMINATION: CT BRAIN - CT Head or Brain W/O Contrast Injection TECHNIQUE: Multiple axial images were obtained of the head with sagittal and coronal reconstructed images. Individualized dose optimization techniques were used for this CT. IV contrast dosage and agent: None. COMPARISON: 06/22/2024 CT. FINDINGS: BRAIN PARENCHYMA: No evidence of an acute infarct or intracranial hemorrhage. No evidence of a mass. CSF SPACES: The ventricles, sulci and subarachnoid cisterns are appropriate for age. CALVARIUM, SKULL BASE, PARANASAL SINUSES AND MASTOID AIR CELLS: No fracture. Mastoid air cells are clear. Small air-fluid level in the right maxillary sinus. ORBITS: The globes, extraocular muscles, optic nerves and retrobulbar fat are unremarkable. CT/Brain/Head without Contrast IMPRESSION: No fracture or acute intracranial abnormality. Electronically Signed: Oziel Fisher DO at 22:53 EST ,
--- NOTE | 2024-08-12 21:43 | CT_ITS ---
INDICATION: Trauma EXAMINATION: CT Spine Cervical W/O Contrast Injection TECHNIQUE: Helically acquired images were obtained of the cervical spine with sagittal and coronal reconstructed images. Individualized dose optimization techniques were used for this CT. IV contrast dosage and agent: None. COMPARISON: 06/22/2024 CT. FINDINGS: VERTEBRAE: No fracture or subluxation. The craniocervical junction is unremarkable. No significant degenerative change. 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 NECK SOFT TISSUES: The prevertebral soft tissues are unremarkable. No pathologically enlarged lymph nodes. THYROID: Unremarkable. LUNG APICES: Unremarkable. CT/Spine Cervical without Contras IMPRESSION: No fracture or subluxation. Electronically Signed: Oziel Fisher DO at 22:57 EST ,
--- NOTE | 2024-08-12 21:43 | CT_ITS ---
INDICATION: fall on eliquis -- TRAUMA ONLY: IV Contrast. Dont wait for creatinine EXAMINATION: CT Chest Abdomen And Pelvis W/ Contrast Injection TECHNIQUE: Helically acquired axial images were obtained of the chest, abdomen, and pelvis with sagittal and coronal reconstructed images. Three-D reconstructed images were reviewed. Individualized dose optimization techniques were used for this CT. IV contrast dosage and agent: 100 mL of Isovue-[id number]. Oral contrast: None. COMPARISON: 08/18/2021 CT. FINDINGS: ---Chest: LUNGS, PLEURA AND LARGE AIRWAYS: No consolidation or edema. No pulmonary nodule. No pleural effusion. No pneumothorax. THYROID: Unremarkable. HEART AND PERICARDIUM: Coronary artery calcifications are present. No pericardial effusion. MEDIASTINUM AND UNIQUE: No mediastinal or hilar adenopathy. Esophagus is unremarkable. No hiatal hernia. VESSELS: No thoracic aortic aneurysm or dissection. No obvious central pulmonary embolism although this study was not performed with pulmonary embolism protocol. BONES: No acute abnormality. ---Abdomen/Pelvis: VESSELS: No abdominal aortic aneurysm or dissection. LIVER: No evidence of a mass. No intrahepatic or extrahepatic biliary duct dilation. GALLBLADDER: Status post cholecystectomy. PANCREAS: No focal solid or cystic mass. No evidence of pancreatitis. SPLEEN: Normal. ADRENAL GLANDS: Normal. KIDNEYS AND URETERS: No urinary tract stone. No hydronephrosis or hydroureter. No significant asymmetric perinephric stranding. Simple bilateral renal cysts with no follow-up recommended. URINARY BLADDER: Unremarkable. BOWEL: No evidence of diverticulosis or diverticulitis. Appendix not identified. No evidence of bowel obstruction. REPRODUCTIVE ORGANS: No evidence of a pelvic mass. PERITONEUM: No intraabdominal free fluid or free air. LYMPH NODES: No pathologically enlarged mesenteric or retroperitoneal lymph nodes. ABDOMINAL WALL: No abdominal or pelvic wall hernia. BONES: No acute abnormality. CT/CT Chest, Abd, Pel w/Contrast IMPRESSION: No evidence of acute traumatic injury of the chest, abdomen or pelvis. Electronically Signed: Oziel Fisher DO at 22:49 EST ,
--- NOTE | 2024-08-12 21:44 | EDS_ITS ---
HPI History of Present Illness Chief Complaint: Syncope Narrative Narrative: Patient is a 58-year-old female past medical history of DVT on Eliquis, STEPHANIE, CAD, chronic hypoxic respiratory failure chronically on 3 L nasal cannula, hypertension, heart failure, stroke, frequent falls who presents to the emergency department with a chief complaint of fall with passing out. Patient states that normally she was getting around with a walker and a wheelchair but lately she has been trying to surf the ritter. She states that she became very lightheaded and passed out earlier falling causing her to cut her left hand. Patient states that last tetanus shot was approximately a year ago now. According the patient she states that she was diagnosed with a GI bleed and is post Dr. Friend tomorrow. [facility] Medical History Urinary frequency Anemia Acute right hemiparesis Generalized muscle weakness H/O long-term (current) use of anticoagulants Falls frequently FTT (failure to thrive) in adult Concussion Chronic anemia Right rib fracture Compression fracture of T6 vertebra Compression fracture of T5 vertebra Debility Cancer CPAP (continuous positive airway pressure) dependence Sleep apnea Coronary artery disease Myocardial infarct DVT (deep venous thrombosis) Seizures DVT (deep vein thrombosis) in Breast infection Congestive heart failure Acute respiratory failure with hypoxia and hypercapnia Cardiopulmonary arrest with successful resuscitation Wears dentures Wears glasses Back pain TIA (transient ischemic attack) GERD (gastroesophageal reflux disease) Anemia BiPAP (biphasic positive airway pressure) dependence Former smoker On home oxygen therapy Cardiology follow-up encounter Hx of echocardiogram Hx of cardiovascular stress test Essential hypertension MSSA (methicillin susceptible Staphylococcus aureus) pneumonia Restrictive lung disease Chronic narcotic dependence Acute and chronic respiratory failure Pulmonary embolism Diastolic dysfunction Syncope and collapse STEPHANIE (obstructive sleep apnea) HLD (hyperlipidemia) Anxiety and depression Morbid obesity Chest pain Bilateral peripheral pulmonary emboli Hypothyroidism COPD (chronic obstructive pulmonary disease) Home Medications ?Medication ?Instructions ?Recorded ?Last Taken ?Type compr.stocking,thigh,reg,x-lrg #24 ea 01/15/24 Unknown Rx miscellaneous medical supply 1 ea miscellaneous DAILY debility 01/16/24 Unknown Rx #1 ea miscellaneous medical supply 1 ea miscellaneous DAILY #1 ea 04/29/24 Unknown Rx miscellaneous medical supply 1 ea miscellaneous DAILY #1 ea 04/29/24 Unknown Rx polyethylene glycol 3350 17 4 g PO DAILY stool softener #119 06/11/24 Unknown Rx gram/dose oral powder (Miralax) grams rosuvastatin 10 mg tablet 10 mg PO DAILY 1 month #30 tabs 06/23/24 Unknown Rx albuterol sulfate 90 mcg/actuation 2 puff inhalation Q6H PRN 06/26/24 Unknown Rx aerosol inhaler shortness of breath or wheezing #8.5 grams apixaban 5 mg tablet (Eliquis) 5 mg PO BID blood thinner #60 tabs 06/26/24 Unknown Rx lorazepam 1 mg tablet 1 mg PO Q6H anxiety #60 tabs 06/26/24 Unknown Rx losartan 100 mg tablet (Cozaar) 100 mg PO DAILY blood pressure #30 06/26/24 Unknown Rx tabs metoprolol succinate 100 mg 50 mg (1/2 x 100 mg) PO DAILY 06/26/24 Unknown Rx tablet,extended release 24 hr blood pressure #15 tabs mirtazapine 7.5 mg tablet 7.5 mg PO QHS sleep #30 tabs 06/26/24 Unknown Rx omeprazole 20 mg capsule,delayed 20 mg PO DAILY acid reflux #30 caps 06/26/24 Unknown Rx release venlafaxine 150 mg 150 mg PO DAILY #30 caps 06/26/24 Unknown Rx capsule,extended release 24 hr (Effexor XR) miscellaneous medical supply #1 ea 07/08/24 Unknown Rx ondansetron HCl 4 mg tablet 4 mg PO Q8H PRN nausea and 07/08/24 Unknown Rx vomiting #30 tabs furosemide 20 mg tablet 30 mg (1.5 x 20 mg) PO DAILY #45 07/22/24 Unknown Rx TABLETS carbidopa 25 mg-levodopa 100 mg 2 tab PO TID #180 tabs 07/23/24 Unknown Rx tablet levetiracetam 750 mg tablet 750 mg PO BID #60 tabs 07/23/24 Unknown Rx miscellaneous medical supply #1 ea 07/29/24 Unknown Rx cholecalciferol (vitamin D3) 1,250 1,250 mcg PO QWEEK 08/12/24 Unknown History mcg (50,000 unit) capsule ferrous sulfate 325 mg (65 mg 325 mg PO QODAY 08/12/24 Unknown History iron) tablet (FeroSul) levetiracetam 500 mg tablet 500 mg PO BID seizures 08/12/24 Unknown History methadone 10 mg tablet 10 mg PO Q8 08/12/24 Unknown History naloxone 4 mg/actuation nasal spray 1 spray intranasal Q2M PRN opioid 08/12/24 Unknown History overdose oxycodone 15 mg tablet 15 mg PO Q4H PRN pain 08/12/24 Unknown History sennosides 8.6 mg-docusate sodium 1 tab-cap PO DAILY 08/12/24 Unknown History 50 mg tablet (Senexon-S) Allergy/AdvReac Type Severity Reaction Status Date / Time aspirin Allergy Hives Verified 08/12/24 21:04 dicyclomine Allergy Itching Verified 08/12/24 21:04 ibuprofen Allergy Hives Verified 08/12/24 21:04 ketorolac tromethamine (From Allergy Angioedema Verified 08/12/24 21:04 Toradol) nut - unspecified Allergy Hives Verified 08/12/24 21:04 Penicillins (PCN) Allergy Hives Verified 08/12/24 21:04 tramadol HCl (From Ultram) Allergy Angioedema Verified 08/12/24 21:04 Family History Brother Myocardial infarction Asthma Mental disorder Psychiatric care Suicide attempt Father Colon cancer Brother Mental disorder Aunt Parkinson disease Sister Breast cancer Cervical cancer Ovarian cancer Sister Cervical cancer Ovarian cancer Mother Cancer leukemia History of blood clots Hypertension Surgical History History of cardiac catheterization History of lumpectomy of left breast History of esophagogastroduodenoscopy (EGD) History of cholecystectomy S/P lumpectomy, left breast History of left breast biopsy History of hysterectomy Hx of appendectomy History of left heart catheterization (LHC) (~04/22/21) Social History household members: family current occupational status: disabled Smoking Status: Former smoker quit date: 01/21/16 pack-years: 32 Electronic Cigarette Use: not used second hand exposure: Yes alcohol intake: never substance use type: does not use do you feel safe at home: No ROS ROS ED ROS Narrative Constitutional: Complains of lightheadedness as noted above denies any fevers or chills Eyes: Denies change in vision double vision blurry vision Cardiovascular: Denies chest pain or palpitations Respiratory: Denies coughing wheezing shortness of breath Abdomen: Denies abdominal pain nausea vomit diarrhea : Denies any urinary symptoms Neurological: Denies numbness, weakness, tingling Musculoskeletal: Complains of left hand pain Skin: Planes of laceration to left hand EXAM Physical Exam Narrative Exam Narrative: General: Patient lying in bed rest comfortably did not appear to be acute distress Head: Atraumatic, normocephalic Eyes: PERRL bilaterally, EOMI bilaterally, no conjunctival injection noted Neck: Soft, supple, trachea midline Cardiovascular: Regular rate and rhythm no murmurs gallops rubs noted Respiratory: Clear to auscultation bilaterally Abdomen: Soft, nondistended, nontender to palpation Extremities: +3/5 strength noted in the bilateral upper and lower extremities, patient was able to give me the okay sign thumbs up and oppose her thumb to her pinky bilaterally Neurological: Patient following commands knew that she was at [facility] years 2024. Sensation grossly intact median ulnar radial nerve distributions bilaterally Musculoskeletal: All of the joints taken through full range of motion bony prominences palpated no pain elicited Skin: Patient has a complex laceration measuring approximately 6 cm on the volar aspect of her left hand going in between her fourth and fifth fingers. She also has a approximately 1/2 cm laceration to the lateral aspect of her left hand neither 1 of these have active bleeding at this point time. Const Vital Signs: 08/12/24 20:44 08/12/24 20:45 08/12/24 21:05 Temperature 99.6 F H 99.6 F H Temperature Source Oral Oral Pulse Rate 88 88 Respiratory Rate 12 18 Respiratory Effort Short of Breath Respiratory Pattern Normal Blood Pressure 145/91 H 145/91 H Blood Pressure Mean 109 109 Pulse Ox 97 97 Oxygen Delivery Method Nasal Cannula Nasal Cannula Oxygen Flow Rate (L/min) 3 3 08/12/24 21:59 08/12/24 23:00 Temperature 99.1 F 99.1 F Temperature Source Oral Oral Pulse Rate 74 87 Respiratory Rate 13 14 Respiratory Effort Respiratory Pattern Blood Pressure 150/74 H 137/81 H Blood Pressure Mean 99 99 Pulse Ox 98 99 Oxygen Delivery Method Nasal Cannula Nasal Cannula Oxygen Flow Rate (L/min) 3 3 MDM MDM MDM Narrative Medical decision making narrative: Patient is a 50-year-old female who presents to the emergency department chief complaint of a syncopal episode. On the differential diagnose includes but limited to intracranial hemorrhage, cervical spine fracture, fracture or dislocation of her left hand, laceration, anemia. Once workup is obtained reviewed she will be reevaluated. Once again the patient's tetanus shot is up-to-date she states that her last 1 was last year. Patient CBC was reviewed and showed no evidence leukocytosis white blood count was 8.7, hemoglobin was noted to be 8, plate count was noted to be 258. Patien t's INR normal at 1.1, PT of 14.7. Patient's sodium was noted to be 137, potassium was normal at 4, creatinine was noted to be 1.1. Patient AST and ALT were 2710 respectively, total bilirubin normal at 0.20. Patient's urinalysis pending. Patient's x-ray of her hand reviewed by myself and by radiology showed no acute fracture or dislocation no foreign body. Patient CT head and brain without contrast showed no acute intracranial abnormality. Patient CT cervical spine reviewed showed no fracture or subluxation. Patient did not CT chest abdomen pelvis with IV contrast reviewed showed no acute traumatic injuries. Patient had the lacerations repaired here in the emergency department tolerated this well she will need her sutures out in approximately 7 to 10 days. Patient was able to flex and extend her fingers bilaterally. Social work did see the patient states that if she is admitted they will be able to place her. Given patient's multiple falls, syncopal episode tonight and poor living conditions we will discuss case with hospitalist for admission. Patient is agreeable this plan. Discussed case with hospitalist Dr. Hurley who accept patient for admission. All question concerns answered at bedside. Procedure note Procedure name: Laceration repair Indication: Reduce risk of infection Location: Patient had simple laceration measuring approximately 1.5 cm on the lateral aspect of her left hand near her fifth finger. Patient then has a complex 5-1/2 cm laceration between her fourth and fifth fingers on the left navarrete d. Preprocedure diagnosis: Laceration Postprocedure diagnosis: Repaired laceration Informed consent was obtained prior to procedure started. Procedure: The appropriate timeout was taken. The area was prepped and draped in usual sterile fashion. Local anesthesia was achieved using 6 cc of lidocaine 1% without epinephrine. Wound was copiously irrigated. 3 4-0 Ethilon interrupted sutures were placed in the laceration measuring approximately 1-1/2 cm. Eight 4-0 Ethilon interrupted sutures placed in the complex laceration between the fourth and fifth fingers Estimated blood loss was less than 0.5 mL. Dressing was applied to the area and anticipatory guidance, as well as standard postprocedure care was explained. Return precautions are given. Patient tolerated procedure well without any complications. Follow-up visit for suture removal and evaluation of laceration. Lab Data Labs: Laboratory Results - last 24 hr 08/12/24 08/12/24 21:30 22:52 WBC 8.7 RBC 3.45 L Hgb 8.0 L Hct 27.1 L MCV 78.6 L MCH 23.2 L MCHC 29.5 L RDW Std Deviation 49.1 H RDW Coeff of Immanuel 17.3 H Plt Count 258 MPV 10.5 Immature Gran % (Auto) 0.300 Neut % (Auto) 64.4 Lymph % (Auto) 26.4 Terrell % (Auto) 5.5 Eos % (Auto) 2.9 Baso % (Auto) 0.5 Absolute Neuts (auto) 5.6 Absolute Lymphs (auto) 2.30 Nucleated RBC % 0 PT 14.7 INR 1.1 APTT 28.9 Sodium 137 Potassium 4.0 Chloride 101 Carbon Dioxide 29.0 Anion Gap 7 BUN 22 H Creatinine 1.11 H Estim Creat Clear Calc 78.51 Est GFR (MDRD) Af Amer 65 Est GFR (MDRD) Non-Af 54 L BUN/Creatinine Ratio 19.8 Glucose 151 H Calcium 9.0 Total Bilirubin 0.20 Direct Bilirubin 0.08 AST 27 ALT 10 L Alkaline Phosphatase 121 H Total Protein 7.8 Albumin 3.2 Globulin 4.6 H Urine Color Yellow Urine Clarity Clear Urine pH 6.5 Ur Specific [place] 1.010 Urine Protein 15 H Urine Glucose (UA) Normal Urine Ketones 5 H Urine Occult Blood 10 H Urine Nitrite Negative Urine Bilirubin Negative Urine Urobilinogen Normal Ur Leukocyte Esterase Negative Urine RBC 0-5 SEEN Urine WBC 0 SEEN Ur Squamous Epith Cells 5-10 SEEN Urine Bacteria 0 SEEN Urine Mucus 0 SEEN Radiography Diagnostic Testing: Clinical Impression(s) from Imaging Studies Hand X-Ray 08/12/24 21:24 IMPRESSION: No evidence of a foreign body and no acute osseous abnormality. Electronically Signed: Oziel Fisher DO at 22:38 EST , Brain CT 08/12/24 21:43 IMPRESSION: No fracture or acute intracranial abnormality. Electronically Signed: Oziel Fisher at 22:53 EST , Cervical Spine CT 08/12/24 21:43 IMPRESSION: No fracture or subluxation. Electronically Signed: Oziel Fisher at 22:57 EST , Chest/Abdomen/Pelvis CT 08/12/24 21:43 IMPRESSION: No evidence of acute traumatic injury of the chest, abdomen or pelvis. Electronically Signed: Oziel Fisher at 22:49 EST , Discharge Plan Triage Chief Complaint: Syncope Other Complaint: Laceration ED Provider: Chad Pederson Dx/Rx/DC Orders Clinical Impression: Syncope, TIA (transient ischemic attack), Complicated laceration of hand, Parkinson's disease Primary Care Provider: Ysabel Ruffin Disposition Disposition: Acute Care Hospital [facility]
[2024-08-12 21:59] VITALS: BP 150/74; PULSE 74; RESP 13; TEMP 37.3; O2SAT 98
[2024-08-12 22:17] LABS: Absolute Neutrophil Count 5.6 X10^3/uL (2.0-7.7); Basophil# 0.04 X10^3/uL; Basophil% 0.5 % (0-1); Eosinophil# 0.25 X10^3/uL; Eosinophils% 2.9 % (0-5); Hematocrit 27.1 % (37-47); Lymphocyte % 26.4 % (19-41); Mean Corp Hgb Conc 29.5 g/dL (32-36); Mean Corpuscular Hgb 23.2 pg (27.0-32.0); Mean Corpuscular Volume 78.6 fL (81-99); Mean Platelet Vol. 10.5 fl (6.2-12.0); Monocyte# 0.48 X10^3/uL; Monocyte% 5.5 % (0-10); NRBC Flagged by Analyzer 0 % (0-5); Neutrophil % 64.4 % (47-70); Platelet Count 258 K/mm3 (150-450); RBC Distribution Width CV 17.3 % (11.6-14.6); RBC Distribution Width SD 49.1 fl (35.1-43.9); Red Blood Count 3.45 M/mm3 (4.2-5.4); White Blood Count 8.7 K/mm3 (4.4-11.0)
[2024-08-12 22:25] LABS: AST(SGOT) 27 U/L (15-37); Alanine Aminotransfer ALT/SGPT 10 U/L (13-56); Albumin, Serum 3.2 g/dL (3.2-5.0); Alkaline Phosphatase 121 U/L (45-117); Anion Gap 7 (5-15); BUN 22 mg/dL (7-18); BUN/Creat Ratio 19.8 RATIO (10-20); Bilirubin, Direct 0.08 mg/dL (0.00-0.30); Chloride 101 mmol/L (98-107); Creatinine, Serum 1.11 mg/dL (0.55-1.02); EST Glomerular Filtration Rate 54 mL/min (>60); Est Glom Filt Rate - Afr Amer 65 mL/min (>60); Estimated Creatinine Clearance 78.51 ml/min; Globulin 4.6 g/dL (2.2-4.2); Glucose 151 mg/dL (74-106); Protein, Total 7.8 g/dL (6.4-8.2); Sodium Level 137 mmol/L (136-145)
[2024-08-12] MEDS: Lidocaine 1% (20 ml mdv) 20 ML Vial 10 ML INFILT (22:53)
[2024-08-12 23:00] VITALS: BP 137/81; PULSE 87; RESP 14; TEMP 37.3; O2SAT 99
[2024-08-12 23:21] LABS: International Normalized Ratio 1.1; Prothrombin Time (Protime)PT. 14.7 SECONDS (11.7-14.9)
[2024-08-12 23:22] LABS: Partial Thromboplast Time 28.9 Seconds (24.1-36.2)
[2024-08-12 23:25] LABS: Bacteria 0 SEEN /hpf (None Seen); Mucous, Urine 0 SEEN /hpf (<or=2+); White Blood Cells 0 SEEN /hpf (0-5)
[2024-08-12 23:26] LABS: Color, Urine Yellow (Yellow); Glucose, Dipstick Normal (Normal); Ketone-Dipstick 5 mg/dl (Negative); Leukocyte Esterase-Dipstick Negative /ul (Negative); Nitrite-Dipstick Negative (Negative); Occult Blood-Urine 10 /ul (Negative); Protein-Dipstick 15 mg/dl (Negative); Urine Bilirubin Dipstick Negative (Negative); Urine Clarity Clear (Clear); Urine Urobilinogen Normal (Normal); Urine pH 6.5 (5.0 - 8.0)
[2024-08-12 23:48] LABS: Red Blood Cells-Urine 0-5 SEEN /hpf (0-5); Squamous Epithelial Cells - UA 5-10 SEEN /hpf (5-10)
--- NOTE | 2024-08-12 23:51 | PCM.HP.STD ---
HPI - General General Date of Admission: 08/12/24 Date of Service: 08/12/24 Chief Complaint: Syncopal event. HPI Narrative The patient is a 58 y/o F w/ PMHx: CAD w/ Hx cardiopulmonary arrest w/ ROSC, CKD stage II based on GFR trending, Chronic anemia, Morbid obesity, STEPHANIE on PAP therapy q HS, Seizure disorder, Hx VTE (DVT, PE), HTN, HLD, Anxiety and Depression, Hypothyroidism, Chronic Hypoxic Respiratory Failure (3L NC) with COPD/RLD, Hx TIA, Former tobacco use, Hx Hypoxic Brain Injury, Arvind-Christine syndrome with action induced myoclonus, Chronic pain syndrome, GERD w/ ongoing evaluation outpatient for possible GI bleed per report with upcoming visit with GI who presents to the [facility] ED on 08/12/2024 with history of mechanical fall unfortunately reportedly passing out normally up and around with her walker and wheelchair however lately she has been attempting to use the ritter to ambulate and unfortunately became very lightheaded and passed out falling with a laceration to the left hand prompting ED evaluation. Per EMS report she has had several falls and they have been called out. She lives with her brother and sister in law. Per EMS she has difficulty getting around in the home. Home health did attempt to clean her area for patient safety but the family refused. Patient does report since her fall she has discomfort to her lumbar back and her left hand. Discussed her medications and she notes that she has not gotten her mirtazapine or her methadone dose this evening. She does confirm that she took her seizure medications this evening already. Workup in the ED included T99.6 Orally, heart rate 88, BP 145/91, respiratory rate 12, 97% on 3 L nasal cannula which appears chronic per previous record review with most recent repeat vitals T99.1 Orally, heart rate 87, BP 137/81, respiratory rate 14, 99% on 3 L nasal cannula, CBC with WBC 8.7, hemoglobin 8.0, MCV 78.6, platelet 258 without marked shift, unremarkable coags, CMP with BUN/creatinine 22/1.11, GFR 54, glucose 151, hepatic profile with alk phos 121 otherwise not marked appearing, urinalysis pending upon request evaluation of patient, plain film of the left hand with no acute findings, CT of the brain with no acute intracranial abnormality, CT cervical spine with no acute fracture or subluxation, CT chest/abdomen/pelvis with no evidence of any acute traumatic injury of the chest, abdomen or pelvis, EKG with SR with no acute evidence of ischemia. In the ED patient history of 1 L normal saline, Zofran 4 mg IV x 1, fentanyl 50 mcg IV x 2. Discussed with ED physician and troponin is pending upon evaluation. [facility] Medical History H/O long-term (current) use of anticoagulants Falls frequently FTT (failure to thrive) in adult Chronic anemia Compression fracture of T6 vertebra Compression fracture of T5 vertebra Cancer CPAP (continuous positive airway pressure) dependence Sleep apnea Coronary artery disease Myocardial infarct DVT (deep venous thrombosis) Seizures DVT (deep vein thrombosis) in Cardiopulmonary arrest with successful resuscitation Wears dentures Wears glasses Back pain TIA (transient ischemic attack) GERD (gastroesophageal reflux disease) BiPAP (biphasic positive airway pressure) dependence Former smoker On home oxygen therapy Cardiology follow-up encounter Hx of echocardiogram Hx of cardiovascular stress test Essential hypertension MSSA (methicillin susceptible Staphylococcus aureus) pneumonia Restrictive lung disease Chronic narcotic dependence Pulmonary embolism Diastolic dysfunction Syncope and collapse STEPHANIE (obstructive sleep apnea) HLD (hyperlipidemia) Anxiety and depression Morbid obesity Bilateral peripheral pulmonary emboli Hypothyroidism COPD (chronic obstructive pulmonary disease) Home Medications ?Medication ?Instructions ?Recorded ?Last Taken ?Type compr.stocking,thigh,reg,x-lrg #24 ea 01/15/24 Unknown Rx miscellaneous medical supply 1 ea miscellaneous DAILY debility 01/16/24 Unknown Rx #1 ea miscellaneous medical supply 1 ea miscellaneous DAILY #1 ea 04/29/24 Unknown Rx miscellaneous medical supply 1 ea miscellaneous DAILY #1 ea 04/29/24 Unknown Rx polyethylene glycol 3350 17 4 g PO DAILY stool softener #119 06/11/24 Unknown Rx gram/dose oral powder (Miralax) grams rosuvastatin 10 mg tablet 10 mg PO DAILY 1 month #30 tabs 06/23/24 Unknown Rx albuterol sulfate 90 mcg/actuation 2 puff inhalation Q6H PRN 06/26/24 Unknown Rx aerosol inhaler shortness of breath or wheezing #8.5 grams apixaban 5 mg tablet (Eliquis) 5 mg PO BID blood thinner #60 tabs 06/26/24 Unknown Rx lorazepam 1 mg tablet 1 mg PO Q6H anxiety #60 tabs 06/26/24 Unknown Rx losartan 100 mg tablet (Cozaar) 100 mg PO DAILY blood pressure #30 06/26/24 Unknown Rx tabs metoprolol succinate 100 mg 50 mg (1/2 x 100 mg) PO DAILY 06/26/24 Unknown Rx tablet,extended release 24 hr blood pressure #15 tabs mirtazapine 7.5 mg tablet 7.5 mg PO QHS sleep #30 tabs 06/26/24 Unknown Rx omeprazole 20 mg capsule,delayed 20 mg PO DAILY acid reflux #30 caps 06/26/24 Unknown Rx release venlafaxine 150 mg 150 mg PO DAILY #30 caps 06/26/24 Unknown Rx capsule,extended release 24 hr (Effexor XR) miscellaneous medical supply #1 ea 07/08/24 Unknown Rx ondansetron HCl 4 mg tablet 4 mg PO Q8H PRN nausea and 07/08/24 Unknown Rx vomiting #30 tabs furosemide 20 mg tablet 30 mg (1.5 x 20 mg) PO DAILY #45 07/22/24 Unknown Rx TABLETS carbidopa 25 mg-levodopa 100 mg 2 tab PO TID #180 tabs 07/23/24 Unknown Rx tablet levetiracetam 750 mg tablet 750 mg PO BID #60 tabs 07/23/24 Unknown Rx miscellaneous medical supply #1 ea 07/29/24 Unknown Rx cholecalciferol (vitamin D3) 1,250 1,250 mcg PO QWEEK 08/12/24 Unknown History mcg (50,000 unit) capsule ferrous sulfate 325 mg (65 mg 325 mg PO QODAY 08/12/24 Unknown History iron) tablet (FeroSul) levetiracetam 500 mg tablet 500 mg PO BID seizures 08/12/24 Unknown History methadone 10 mg tablet 10 mg PO Q8 08/12/24 Unknown History naloxone 4 mg/actuation nasal spray 1 spray intranasal Q2M PRN opioid 08/12/24 Unknown History overdose oxycodone 15 mg tablet 15 mg PO Q4H PRN pain 08/12/24 Unknown History sennosides 8.6 mg-docusate sodium 1 tab-cap PO DAILY 08/12/24 Unknown History 50 mg tablet (Senexon-S) Allergy/AdvReac Type Severity Reaction Status Date / Time aspirin Allergy Hives Verified 08/12/24 21:04 dicyclomine Allergy Itching Verified 08/12/24 21:04 ibuprofen Allergy Hives Verified 08/12/24 21:04 ketorolac tromethamine (From Allergy Angioedema Verified 08/12/24 21:04 Toradol) nut - unspecified Allergy Hives Verified 08/12/24 21:04 Penicillins (PCN) Allergy Hives Verified 08/12/24 21:04 tramadol HCl (From Ultram) Allergy Angioedema Verified 08/12/24 21:04 Family History Brother Myocardial infarction Asthma Mental disorder Psychiatric care Suicide attempt Father Colon cancer Brother Mental disorder Aunt Parkinson disease Sister Breast cancer Cervical cancer Ovarian cancer Sister Cervical cancer Ovarian cancer Mother Cancer leukemia History of blood clots Hypertension Surgical History History of cardiac catheterization History of lumpectomy of left breast History of esophagogastroduodenoscopy (EGD) History of cholecystectomy S/P lumpectomy, left breast History of left breast biopsy History of hysterectomy Hx of appendectomy History of left heart catheterization (LHC) (~04/22/21) Social History household members: family current occupational status: disabled Smoking Status: Former smoker quit date: 01/21/16 pack-years: 32 Electronic Cigarette Use: not used second hand exposure: Yes alcohol intake: never substance use type: does not use do you feel safe at home: No ROS ROS Narrative Admission Review of Systems: CONSTITUTIONAL: No weight loss, fever, chills, + weakness or fatigue. HEENT: + Lightheadedness, dizziness. Eyes: No visual loss, blurred vision, double vision or yellow sclerae. Ears, Nose, Throat: No hearing loss, sneezing, congestion, runny nose or sore throat. SKIN: No rash or itching, lesions, wounds. CARDIOVASCULAR: + Chronic edema, syncopal event, lightheadedness/dizziness. No chest pain, chest pressure or chest discomfort, palpitations, orthopnea. RESPIRATORY: + Chronic intermittent dyspnea, worse with exertion. No recent marked cough, productive sputum, wheezing hemoptysis. GASTROINTESTINAL: No anorexia, nausea, vomiting or diarrhea, abdominal pain, melena, BRBPR. GENITOURINARY: + Chronic urinary frequency. No dysuria, urgency or retention. NEUROLOGICAL: + Intermittent headaches, dizziness, lightheadedness, syncopal event. No paralysis, ataxia, numbness or tingling in the extremities, focal weakness, change in bowel or bladder control, seizure. MUSCULOSKELETAL: + muscle, back pain, joint pain or stiffness. HEMATOLOGIC: + Chronic anemia, easy bleeding/bruising. LYMPHATICS: No enlarged nodes. No history of splenectomy. PSYCHIATRIC: + History of anxiety and depression. ENDOCRINOLOGIC: No reports of sweating, cold or heat intolerance. No polyuria or polydipsia. ALLERGIES: + History of hives and angioedema. Vital Signs Vital Signs Vital Signs: 08/12/24 20:44 08/12/24 20:45 08/12/24 21:05 Temperature 99.6 F H 99.6 F H Temperature Source Oral Oral Pulse Rate 88 88 Respiratory Rate 12 18 Respiratory Effort Short of Breath Respiratory Pattern Normal Blood Pressure 145/91 H 145/91 H Blood Pressure Mean 109 109 Pulse Ox 97 97 Oxygen Delivery Method Nasal Cannula Nasal Cannula Oxygen Flow Rate (L/min) 3 3 08/12/24 21:59 08/12/24 23:00 Temperature 99.1 F 99.1 F Temperature Source Oral Oral Pulse Rate 74 87 Respiratory Rate 13 14 Respiratory Effort Respiratory Pattern Blood Pressure 150/74 H 137/81 H Blood Pressure Mean 99 99 Pulse Ox 98 99 Oxygen Delivery Method Nasal Cannula Nasal Cannula Oxygen Flow Rate (L/min) 3 3 Weight Weight: 300 lb 0.786 oz Body Mass Index (BMI) 48.4 Physical Exam Narrative Physical Examination: General: Awake, alert, oriented x 3 and cooperative, seated upright in the ED bed, fatigued, flat affect. Skin: Normal color, normal turgor, no icterus, no cyanosis except occasional stage ecchymoses, abrasions, left hand with dressings in place with no drainage. HEENT: AT/NC, EOMI, PERRLA, mildly dry MM, no carotid bruits or JVD noted; however very thickened neck makes evaluation difficult. Lungs: Diminished, greater bases, poor effort, no rales, ronchi or wheezing. Heart: Regular rate and rhythm; no gallop, rub audible. Abdomen: Soft, morbidly obese, NTTP, distant normal BS, difficult to discern distention HSM given habitus but none appreciated. Extremities: No cyanosis, no clubbing, mild ankle not markedly pitting edema. Neurological: Patient awake, alert, oriented as noted, cognitive function suspect baseline intact but does have hypoxic brain injury history; pupils equally reactive to light and accommodation, cranial nerves gross normal, moving all 4 extremities, no focal deficits, strength moderately to severely globally decreased. Psychiatric: Affect appears flat, does have underlying anxiety and depressive history. Results Lab / Micro Data 08/12/24 21:30 08/12/24 21:30 Labs: Laboratory Results - last 24 hr 08/12/24 21:30: WBC 8.7, RBC 3.45 L, Hgb 8.0 L, Hct 27.1 L, MCV 78.6 L, MCH 23.2 L, MCHC 29.5 L, RDW Std Deviation 49.1 H, RDW Coeff of Immanuel 17.3 H, Plt Count 258, MPV 10.5, Immature Gran % (Auto) 0.300, Neut % (Auto) 64.4, Lymph % (Auto) 26.4, Graham % (Auto) 5.5, Eos % (Auto) 2.9, Baso % (Auto) 0.5, Absolute Neuts (auto) 5.6, Absolute Lymphs (auto) 2.30, Nucleated RBC % 0, PT 14.7, INR 1.1, APTT 28.9, Sodium 137, Potassium 4.0, Chloride 101, Carbon Dioxide 29.0, Anion Gap 7, BUN 22 H, Creatinine 1.11 H, Estim Creat Clear Calc 78.51, Est GFR (MDRD) Af Amer 65, Est GFR (MDRD) Non-Af 54 L, BUN/Creatinine Ratio 19.8, Glucose 151 H, Calcium 9.0, Total Bilirubin 0.20, Direct Bilirubin 0.08, AST 27, ALT 10 L, Alkaline Phosphatase 121 H, Total Protein 7.8, Albumin 3.2, Globulin 4.6 H 08/12/24 22:52: Urine Color Yellow, Urine Clarity Clear, Urine pH 6.5, Ur Specific [place] 1.010, Urine Protein 15 H, Urine Glucose (UA) Normal, Urine Ketones 5 H, Urine Occult Blood 10 H, Urine Nitrite Negative, Urine Bilirubin Negative, Urine Urobilinogen Normal, Ur Leukocyte Esterase Negative, Urine RBC 0-5 SEEN, Urine WBC 0 SEEN, Ur Squamous Epith Cells 5-10 SEEN, Urine Bacteria 0 SEEN, Urine Mucus 0 SEEN Imaging Radiology Impression Hand X-Ray 08/12/24 21:24 IMPRESSION: No evidence of a foreign body and no acute osseous abnormality. Electronically Signed: Oziel FisherDO at 22:38 EST Reading Location ID and State: [employer] / [place] Tel , Service support , Brain CT 08/12/24 21:43 IMPRESSION: No fracture or acute intracranial abnormality. Electronically Signed: Oziel FisherDO rojas at 22:53 EST Reading Location ID and State: [employer] / [place] Tel , Service support , Cervical Spine CT 08/12/24 21:43 IMPRESSION: No fracture or subluxation. Electronically Signed: Oziel LuaDO rojas at 22:57 EST Reading Location ID and State: [employer] / [place] Tel , Service support , Chest/Abdomen/Pelvis CT 08/12/24 21:43 IMPRESSION: No evidence of acute traumatic injury of the chest, abdomen or pelvis. Electronically Signed: Oziel FisherDO at 22:49 EST , Assessment & Plan Assessment/Plan (1) Syncope: PLAN: Plan The patient is a 58 y/o F w/ PMHx: CAD w/ Hx cardiopulmonary arrest w/ ROSC, CKD stage II based on GFR trending, Chronic anemia, Morbid obesity, STEPHANIE on PAP therapy q HS, Seizure disorder, Hx VTE (DVT, PE), HTN, HLD, Anxiety and Depression, Hypothyroidism, Chronic Hypoxic Respiratory Failure (3L NC) with COPD/RLD, Hx TIA, Former tobacco use, Hx Hypoxic Brain Injury, Arvind-Christine syndrome with action induced myoclonus, Chronic pain syndrome, GERD w/ ongoing evaluation outpatient for possible GI bleed per report with upcoming visit with GI who presents to the [facility] ED on 08/12/2024 with history of mechanical fall unfortunately reportedly passing out normally up and around with her walker and wheelchair however lately she has been attempting to use the ritter to ambulate and unfortunately became very lightheaded and passed out falling with a laceration to the left hand prompting ED evaluation. #1. Syncopal Event with lightheadedness/dizziness and eventual fall while attempting to ambulate with significant unsafe living situation, increased frequency of falls with need for skilled facility placement with adult failure to thrive: Unclear etiology for syncopal event but has had frequent falls and is in an unsafe living environment, potentially secondary to sedating medications but uncertain, EKG in ED w/ sinus rhythm without evidence of acute ischemia, CT chest/abdomen/pelvis with no acute findings, requested ED physician initiate troponin to be cautious. Will admit to PCU, place on a monitored bed to assure no acute myocardial infarction with serial cardiac enzymes and EKGs. Mag requested. Will maintain on fall precautions, obtain admission orthostatic and AM orthostatic VS if appropriate, will judiciously hydrate, defer echo as recently obtained 06/23/2024 with no acute findings with EF 60%. PT/OT/case management consultation for placement as patient is in an unsafe living environment with frequent falls need skilled facility placement. Given expectation of stay for at greater than 48 hours in the setting placed as a full admission for this reason. #2. Hyperglycemia, mild: Admission glucose 151, mildly elevated, given underlying history morbid obesity will obtain [id number] to be cautious. #3. Chronic COPD/RLD with chronic hypoxic respiratory failure 3 L NC: Will maintain on home oxygen supplementation, continue ATC budesonide, PRN albuterol, HOB, IS parameters. #4. Chronic Kidney Disease Stage II per GFR trending although has vacillated: Admission BUN/Cr 22/1.11, GFR 54, baseline renal function appears primarily more recently 0.8-1.0, repeat BMP in AM. #5. Seizure disorder complicated by history of hypoxic brain injury: Following with Dr. Castro, will continue patient home Keppra regimen, as noted will continue anxiolytics to avoid withdrawal but patient history places her at significant fall risk given these medications #6. Anxiety and depression: We will continue patient home venlafaxine and mirtazapine regimen. Patient is additionally on lorazepam 1 mg every 6 hours which will need to be verified and again patient chronic pain regimen as well as anxiolytic medication likely contributing to her fall but given her chronic usage and seizure disorder do not wish to immediately withdrawal as this would significantly increase her risk. #7. Chronic pain syndrome: Complicates presentation, given significant history of narcotic use we will continue scheduled methadone and as needed oxycodone to avoiding withdrawal but hold for sedation if needed, maintain on fall precautions, offloading. #8. Hypertension: Continue home regimen including metoprolol, losartan, Lasix with hold parameters as needed, PRN hydralazine. #9. Hyperlipidemia: We will continue patient home statin therapy. #10. Chronic microcytic anemia/iron deficiency anemia: Admission hemoglobin 8.0, MCV 78.6, baseline hemoglobin most recently noted 06/23/2024 hemoglobin 8.4, appears to vacillate primarily 7-9 range, continue to trend CBC. Continue iron supplementation. Encourage continued outpatient follow-up with gastroenterology as previously arranged. 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 #12. History of VTE: Patient with history of DVT, PE, continue home Eliquis regimen. #13. Morbid Obesity: Weight loss and lifestyle changes encouraged. #14. CAD w/ Hx cardiopulmonary arrest w/ ROSC: Most recent noted cardiac catheterization 04/22/2021 with LVEF 60%, single-vessel CAD of the LAD with mild luminal irregularities with recommendation for medical therapy at that time, noted aspirin allergy, maintained on apixaban, statin, metoprolol, losartan home regimen. #15. Former tobacco use: Encourage continued tobacco cessation. #16. STEPHANIE: Encourage BiPAP nightly. #17. GERD: We will continue home PPI. #18. DVT prophylaxis: We will continue patient home apixaban regimen. #19. CODE status: Patient HCPOA and living will are not in place but if she needed medical decisions made and could not show up on her daughter Estelle to be her decision-maker. Discussed CODE status at length including difference between FULL code, DNR-CCA and DNR-CC status. Following discussions about the differences in these status, requested Full Code status. Advanced Care Planning Face to Face Time: 16 minutes. Charges/Coding Visit Charges Inpatient E&M: 41242 Init Hosp L3 Procedures Hospitalists Procedures: 95953 Advncd Care Plan 30 Min
[2024-08-13] VITALS (16 sets, daily range): BP systolic 104–133; BP diastolic 70–86; PULSE 58–92; RESP 12–18; TEMP 36.6–37.3; O2SAT 92–100; BMI 46.7; BMI 46.5
[2024-08-13 00:17] LABS: Magnesium 2.2 mg/dL (1.6-2.6); Troponin-I HS 4 pg/mL (3.0-54.0)
--- NOTE | 2024-08-13 00:18 | ED.RN ---
ATTEMPTED TO CALL FAMILY MEMBERS LISTED IN CHART PER PT. REQUEST. 4 PHONE CALLED WENT TO VOICEMAIL. PT. UNABLE TO MAKE CALLS AT THIS TIME D/T PHONE AT PRIMARY RESIDENCE.
[2024-08-13] MEDS: 0.9% Normal Saline (1000mL) 1,000 ML 100 ML IV (01:03)
[2024-08-13] MEDS: Mirtazapine 15 MG Tablet 7.5 MG PO ×2 (01:23→20:58)
[2024-08-13] MEDS: Methadone 10 MG Tablet PO ×4 (01:23→21:03)
[2024-08-13] MEDS: 0.9% Saline Lock 10 ML Syringe IV ×2 (01:23→06:09)
[2024-08-13] MEDS: LORazepam 1 MG Tablet PO ×4 (01:23→18:26)
[2024-08-13 02:09] LABS: Troponin-I HS 5 pg/mL (3.0-54.0)
[2024-08-13 03:41] LABS: Absolute Lymphocyte Count 2.74 X10^3/uL (0.83-4.51); Absolute Neutrophil Count 5.2 X10^3/uL (2.0-7.7); Basophil# 0.04 X10^3/uL; Basophil% 0.5 % (0-1); Eosinophil# 0.21 X10^3/uL; Eosinophils% 2.4 % (0-5); Hematocrit 25.1 % (37-47); Hemoglobin 7.3 g/dL (12.0-15.0); Lymphocyte # 2.74 X10^3/ul (0.83-4.51); Lymphocyte % 31.3 % (19-41); Mean Corp Hgb Conc 29.1 g/dL (32-36); Mean Corpuscular Hgb 23.1 pg (27.0-32.0); Mean Corpuscular Volume 79.4 fL (81-99); Mean Platelet Vol. 10.3 fl (6.2-12.0); Monocyte# 0.53 X10^3/uL; Monocyte% 6.1 % (0-10); NRBC Flagged by Analyzer 0 % (0-5); Neutrophil # 5.22 X10^3/uL (2.7-7.7); Neutrophil % 59.5 % (47-70); Platelet Count 251 K/mm3 (150-450); RBC Distribution Width CV 17.6 % (11.6-14.6); RBC Distribution Width SD 51.4 fl (35.1-43.9); Red Blood Count 3.16 M/mm3 (4.2-5.4); White Blood Count 8.8 K/mm3 (4.4-11.0)
[2024-08-13 04:00] LABS: ALB/GLOB Ratio 0.7 RATIO (0.9-2.4); AST(SGOT) 23 U/L (15-37); Alanine Aminotransfer ALT/SGPT 13 U/L (13-56); Albumin, Serum 2.9 g/dL (3.2-5.0); Alkaline Phosphatase 102 U/L (45-117); Anion Gap 4 (5-15); BUN 18 mg/dL (7-18); BUN/Creat Ratio 20.6 RATIO (10-20); Calcium,Total 8.4 mg/dL (8.5-10.1); Chloride 104 mmol/L (98-107); Creatinine, Serum 0.87 mg/dL (0.55-1.02); EST Glomerular Filtration Rate 71 mL/min (>60); Est Glom Filt Rate - Afr Amer 85 mL/min (>60); Estimated Creatinine Clearance 98.03 ml/min; Glucose 99 mg/dL (74-106); Potassium 4.1 mmol/L (3.5-5.1); Protein, Total 6.9 g/dL (6.4-8.2); Sodium Level 136 mmol/L (136-145)
[2024-08-13 04:04] LABS: Troponin-I HS 6 pg/mL (3.0-54.0)
[2024-08-13] MEDS: Carbidopa/Levodopa 25/100 Tablet PO ×3 (06:09→16:15)
[2024-08-13] MEDS: oxyCODONE 5 MG Tablet 15 MG PO ×4 (06:11→20:54)
[2024-08-13] MEDS: Budesonide Respules 0.5 MG/2 ML AMPUL.NEB. INHALATION ×2 (07:25→19:14)
--- NOTE | 2024-08-13 07:30 | PCM.PN.HOSP ---
Reason for Visit Reason for Visit: Diagnoses Syncope and collapse (08/12/24) Objective Data Objective Data Vital Signs: Vital Signs Temp Pulse Resp BP Pulse Ox O2 Del Method O2 Flow Rate 98.7 F 68 13 122/73 H 100 Nasal Cannula 3 08/13/24 03:33 08/13/24 03:33 08/13/24 03:33 08/13/24 03:33 08/13/24 03:33 08/13/24 03:33 08/13/24 03:33 Oxygen Flow Rate (L/min) 3 Oxygen Delivery Method Nasal Cannula Weight: 289 lb 7.471 oz Body Mass Index (BMI) 46.5 Intake & Output: Intake and Output for Last 24 Hours 08/11/24 08/12/24 08/13/24 23:59 23:59 23:59 Intake Total 1000 / 1000 100 / 100 Balance 1000 / 1000 100 / 100 Lab / Micro Data 08/13/24 03:23 08/13/24 03:23 Labs: Laboratory Results - last 24 hr 08/12/24 21:30: WBC 8.7, RBC 3.45 L, Hgb 8.0 L, Hct 27.1 L, MCV 78.6 L, MCH 23.2 L, MCHC 29.5 L, RDW Std Deviation 49.1 H, RDW Coeff of Immanuel 17.3 H, Plt Count 258, MPV 10.5, Immature Gran % (Auto) 0.300, Neut % (Auto) 64.4, Lymph % (Auto) 26.4, [place] % (Auto) 5.5, Eos % (Auto) 2.9, Baso % (Auto) 0.5, Absolute Neuts (auto) 5.6, Absolute Lymphs (auto) 2.30, Nucleated RBC % 0, PT 14.7, INR 1.1, APTT 28.9, Sodium 137, Potassium 4.0, Chloride 101, Carbon Dioxide 29.0, Anion Gap 7, BUN 22 H, Creatinine 1.11 H, Estim Creat Clear Calc 78.51, Est GFR (MDRD) Af Amer 65, Est GFR (MDRD) Non-Af 54 L, BUN/Creatinine Ratio 19.8, Glucose 151 H, Calcium 9.0, Magnesium 2.2, Total Bilirubin 0.20, Direct Bilirubin 0.08, AST 27, ALT 10 L, Alkaline Phosphatase 121 H, Troponin I High Sens 4, Total Protein 7.8, Albumin 3.2, Globulin 4.6 H 08/12/24 22:52: Urine Color Yellow, Urine Clarity Clear, Urine pH 6.5, Ur Specific [place] 1.010, Urine Protein 15 H, Urine Glucose (UA) Normal, Urine Ketones 5 H, Urine Occult Blood 10 H, Urine Nitrite Negative, Urine Bilirubin Negative, Urine Urobilinogen Normal, Ur Leukocyte Esterase Negative, Urine RBC 0-5 SEEN, Urine WBC 0 SEEN, Ur Squamous Epith Cells 5-10 SEEN, Urine Bacteria 0 SEEN, Urine Mucus 0 SEEN Radiography Diagnostic Testing: Radiology Impression Hand X-Ray 08/12/24 21:24 IMPRESSION: No evidence of a foreign body and no acute osseous abnormality. Electronically Signed: Oziel Fisher DO at 22:38 EST , Brain CT 08/12/24 21:43 IMPRESSION: No fracture or acute intracranial abnormality. Electronically Signed: Oziel Fsiher DO at 22:53 EST , Cervical Spine CT 08/12/24 21:43 IMPRESSION: No fracture or subluxation. Electronically Signed: Oziel Fisher DO at 22:57 EST , Chest/Abdomen/Pelvis CT 08/12/24 21:43 IMPRESSION: No evidence of acute traumatic injury of the chest, abdomen or pelvis. Electronically Signed: Oziel Fisher DO at 22:49 EST , Physical Exam Narrative Seen and examined. Patient complain of cough for about last 1 week. No fever or chills. Nasal sinus congestion. Denies chest pain pressure tightness. No burning micturition. Obesity hypoventilation syndrome and uses BiPAP with oxygen at night Physical exam General: Alert, Oriented x3, Cooperative. BMI 46.7 kg/m? HEENT: Atraumatic, PERRLA, EOMI, Normocephalic Oral: Deep oropharyngeal structures could not be visualized Neck: Supple, No JVD, Negative Carotid Bruits Chest wall/Lungs: Air entry diminished in bilateral lung bases. Mild bilateral coarse crepitations and rhonchi Cardiovascular: Regular rate, Regular Rhythm, Normal S1, Normal S2, No M/G/R Abdomen: Bowel Sounds Present, Soft, Non Tender, Non-Distended : No dysuria. No renal angle tenderness. No suprapubic tenderness. Extremities: mild chronic mild pitting edema, Capillary Refill Less than 3 Seconds Skin: No rashes, No breakdown Musculoskeletal: No Tenderness to Palpation of Joints or Extremities. On walker and wheelchair. Degenerative arthritis Neurological: Cranial nerves II-XII grossly intact, DTR 2+/4. No acute focal neurological deficit. Psych/Mental Status: Flat affect Assessment & Plan Assessment/Plan (1) Syncope: PLAN: Plan The patient is a 58 y/o F is being admitted after she felt dizzy, hot sensation followed by brief syncopal episode and fall. She hit her head, lacerated her hand and headache. Patient on Eliquis for DVT/PE She normally ambulates on walker and wheelchair #1. Syncopal event with lightheadedness and dizziness probably resulting into fall with baseline ambulatory dysfunction: Patient is being admitted in PCU. Twelve-lead EKG individually reviewed and showed sinus rhythm no acute ischemic changes. CT chest abdomen pelvis with no acute finding. Orthostatic vitals in the morning. Recent echo in July 15 reported EF 60%. PT OT and pillowcase turner. Suspected URI. Triple PCR ordered for flu COVID and RSV., Mucinex DM, incentive spirometry and PEP. DuoNeb as needed. #2. Hyperglycemia, mild: Admission glucose 151, A1c 5.6%, upper normal. Does not meet criteria for prediabetes or diabetes #3. Chronic COPD/RLD with chronic hypoxic respiratory failure 3 L NC, Obesity hypoventilation syndrome and BiPAP with oxygen #4. Chronic Kidney Disease Stage II: BUNs/creatinine 22/1.11, repeat normal. Discontinue IV fluid #5. Seizure disorder complicated by history of hypoxic brain injury: Following with Dr. Castro, will continue patient home Keppra regimen, as noted will continue anxiolytics to avoid withdrawal but patient history places her at significant fall risk given these medications #6. Anxiety and depression: Home medications continue mirtazapine and venlafaxine continue #7. Chronic pain syndrome: Patient on scheduled methadone and as needed oxycodone. Hold for sedation/lethargy #8. Hypertension: Continue home regimen including metoprolol, losartan, Lasix with hold parameters as needed, PRN hydralazine. Orthostatic hypotension #9. Hyperlipidemia: continue patient home statin therapy. #10. Chronic microcytic anemia/iron deficiency anemia: Admission hemoglobin 8.0, MCV 78.6, baseline hemoglobin noted 06/23/2024 hemoglobin 8.4. Dropped to 7.3/25%. 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 #12. History of VTE: Patient with history of DVT, PE, continue home Eliquis regimen. #13. Morbid Obesity: Weight loss and lifestyle changes encouraged. #14. CAD w/ Hx cardiopulmonary arrest w/ ROSC: Most recent noted cardiac catheterization 04/22/2021 with LVEF 60%, single-vessel CAD of the LAD with mild luminal irregularities with recommendation for medical therapy at that time, noted aspirin allergy, maintained on apixaban, statin, metoprolol, losartan home regimen. #15. Former tobacco use: Encourage continued tobacco cessation. #16. STEPHANIE: Encourage BiPAP nightly. #17. GERD: We will continue home PPI. #18. DVT prophylaxis: We will continue patient home apixaban regimen. #19. CODE status: Patient HCPOA and living will are not in place but if she needed medical decisions made and could not show up on her daughter Estelle to be her decision-maker. Discussed CODE status at length including difference between FULL code, DNR-CCA and DNR-CC status. Following discussions about the differences in these status, requested Full Code status. Charges/Coding Visit Charges Inpatient E&M: 21023 Subs Hosp L2
[2024-08-13 08:22] LABS: Hemoglobin A1c 5.6 % (3.8-5.6)
[2024-08-13] MEDS: Menthol/Lanolin/Calamine/Znox 113 GM Tube 1 APPLIC TOPICAL ×2 (09:46→20:55)
[2024-08-13] MEDS: Losartan Potassium 100 MG Tablet PO (09:46)
[2024-08-13] MEDS: APIXABAN 5 MG TABLET PO ×2 (09:46→20:56)
[2024-08-13] MEDS: Venlafaxine XR 150 MG Capsule PO (09:46)
[2024-08-13] MEDS: levETIRAcetam 750 MG Tablet PO ×2 (09:46→20:56)
[2024-08-13] MEDS: Pantoprazole Sodium 20 MG Tablet PO (09:47)
[2024-08-13] MEDS: Senna/Docusate Sodium 1 Tablet 2 TABLET PO ×2 (09:47→20:57)
[2024-08-13] MEDS: Furosemide 20 MG Tablet 30 MG PO (09:47)
[2024-08-13] MEDS: Polyethylene Glycol 3350 17 GM PACKET PO (09:47)
[2024-08-13] MEDS: Metoprolol(XL)Succ 50 MG Tablet PO (09:47)
[2024-08-13] MEDS: guaiFENesin/D-Methorphan TAB.SR.12H 2 TABLET PO ×2 (09:47→20:57)
--- NOTE | 2024-08-13 10:07 | CASEMGMT ---
Social Work- SW met with pt to discuss discharge preferences. SW introduced self and role. Pt O x 4 and agreeable to meeting. Personal Status Living Arrangements: Pt lives with brother and [id number] in an apartment. Pt lives in a singular room that is cluttered with wires and brother's belongings. Pt reports that there are 2 steps into the home from outside. There is a basement, but pt does not go down. There are no other steps inside the home. Pt reports that she cannot navigate the two steps outside and arranged to have a ramp installed, but brother declined to allow. Pt reports that she pays $750/month rent for her room. Pt reports that home is very cluttered and pt has not been able to do much with [facility] therapy d/t clutter. Pt reports brother has 3 small dogs that are frequently underfoot and use pee pads in the home. Pt has a small dog that goes outside and is trained to stay at her side. Pt would want to take her dog with her to [place]. Pt would like to find alternate housing at [facility]. Education/Literacy: Pt states that her leouig-kq-szq assists with finances due to not being able to leave the home, not due to lack of ability. Pt is observed to have understanding of medical concerns, but reports that she needs assistance filling out paperwork for housing. Pt is very passive and reports that she does not advocate for self/is vulnerable in relationships. Insurance: [facility] Family Dynamics/Relationships:Pt reports that dpybqq-hp-tyt drinks and has begun increasing consumption. Pt brother makes disparaging remarks about others and has been disagreeable to someone cleaning clutter and to ramp for pt. Pt also states that her daughter will not visit b/c of brother's comments and behaviors. Pt states that when pt was at [facility], drcyjx-om-dmh stopped paying them and pt now owes $2k. Pt states ffpaee-sa-zfy is named on savings account, but not checking, but rqjnln-th-lfv often has pt debit card. Living Will/POAHC:? Pt states no POA in place, but would like dtr to be contact point. Pt does not know her contact information and does not have her phone to look it up. When pt gets her phone, SW will take dtr contact information and place in chart. Medical History and Functioning: Reason for admission and Relevant Medical History: Syncopal event and fall resulting in stitches in pt hand ADLs prior to admission: Pt uses walker, wheelchair, wall walks. Pt reports that she is able to do some self care, but needs assistance with bathing. Pt cannot shop or care for home. Pt reports that she gets delivered meals, but family puts them in the basement where she cannot get to them, therefore, she often requires meal assistance. DME used: wheelchair, walker, shower bench, bedside commode (although pt notes there is not room for this in her room due to clutter) Programs/Agencies Involved: Delivered meals: actively receiving? PASSPORT/Waiver:??uncertain who CM is? Home Health Care: actively receiving. Pt discharged with [facility] in 07/15. Halfway/Assisted Living/Half-Way: [facility]?through waiver program? Transportation: pt identified transportation as an area of concern and would like resources Palliative: actively receiving services; believes it to be [facility] SW to follow up following therapy. Pt agreeable to SNF if recommended. SW to provide transportation information, APS referral, collaboration with [facility], as well as assistance with discharge planning. RNCM advised of SW assessment. JERRICA Novoa
--- NOTE | 2024-08-13 10:11 | CM.ED ---
Social Work SW met with patient, explained role with hospital and reason for visit. Triage nurse was concerned regarding patients living situation after patient made several comments regarding the safety and comfort of her current living situation. Patient told social services counselor that she is living with her brother and her sister in law. She states that she feels that they are not able or willing to help her to the level that she needs. Patient feels with her parkinsons progressing, she is more unsafe and experiencing more falls. Patient stated she had lived at [facility] previously and had moved out to try living with her brother. She stated she did not like [facility] but would like to try another nursing facility once medically ready for discharge. Cortney Huerta, PHARMACY CASHIER, MAMMAL CONTROL AGENT
--- NOTE | 2024-08-13 11:55 | CASEMGMT ---
Addendum entered by Drake Rodriguez 08/13/24 12:07: Per [facility] Palliative, pt is active w/[facility]. They were notified pt has been admitted to [facility]. Original Note: PAT ALBA note: Per pt, she has home O2 through [employer] @ 3 L/M and she states she has a concentrator and portability. Call placed to [facility] and spoke w/Shiv, who states pt's current O2 orders are 2 L/M continuously (as of 11/2023). Mireya NAVA RN CM
--- NOTE | 2024-08-13 12:04 | CASEMGMT ---
WILNER called [facility] to find out patient's test case developer. SW spoke with someone on [facility]'s coverage line. Patient is no longer active with the waiver program. Patient was active with [facility] when she was in assisted living at [facility]. SW was told patient did not like [facility] so she left [place] and disenrolled in waiver. WILNER confirmed if patient wanted back on waiver program SW could make a referral via [facility] website. SW will talk with patient and let her know. Kathryn Corral TANKERMAN JAE
--- NOTE | 2024-08-13 12:53 | CHAPLAIN ---
Type of Pastoral Visit _x__ Initial Visit ___ Follow-up Visit ___ On-call Visit ___ General Patient Visit ___ Spiritual Assessment ___ Family Conference ___ Bereavement ___ Rapid Response ___ Code Blue ___ Other (describe below) Pastoral Care Referral From _x__ Patient ___ Family ___ Nurse ___ Physician ___ Plastic Finisher ___ Doctor'S Assistant ___ Other (describe below) Sacrament/Intervention _x__ Active listening ___ Anointing ___ Adventist ___ Bereavement ___ Communion ___ Rylie exploration ___ ___ Life review _x__ Prayer ___ Reconciliation ___ Sacrament of Sick _x__ Supportive presence ___ Wedding ___ Other (describe below) Pastoral Comments patient is resting quietly but admits to pain in her hand which has 12 stitches; pt states that her biggest concern is getting healed and well; pt is asked about how she is coping with and handling her situation in the hospital; pt admits that she is not coping as she would like; discussion on what helps her have contentment and peace; pt requests a prayer
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
[2024-08-13 15:16] LABS: Hematocrit 26.6 % (37-47); Hemoglobin 7.8 g/dL (12.0-15.0)
[2024-08-13] MEDS: Atorvastatin Calcium 20 MG Tablet PO (20:57)
[2024-08-14] VITALS (13 sets, daily range): BP systolic 95–116; BP diastolic 48–81; PULSE 57–70; RESP 13–18; TEMP 36.5–36.9; O2SAT 96–100; BMI 46.6
[2024-08-14] MEDS: LORazepam 1 MG Tablet PO ×3 (01:10→14:10)
[2024-08-14] MEDS: oxyCODONE 5 MG Tablet 15 MG PO ×4 (01:10→18:28)
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
[2024-08-14 05:07] LABS: Absolute Lymphocyte Count 2.64 X10^3/uL (0.83-4.51); Absolute Neutrophil Count 4.8 X10^3/uL (2.0-7.7); Basophil# 0.05 X10^3/uL; Basophil% 0.6 % (0-1); Eosinophil# 0.31 X10^3/uL; Eosinophils% 3.7 % (0-5); Hematocrit 28.1 % (37-47); Hemoglobin 7.9 g/dL (12.0-15.0); Lymphocyte # 2.64 X10^3/ul (0.83-4.51); Lymphocyte % 31.5 % (19-41); Mean Corp Hgb Conc 28.1 g/dL (32-36); Mean Corpuscular Hgb 22.9 pg (27.0-32.0); Mean Corpuscular Volume 81.4 fL (81-99); Mean Platelet Vol. 10.3 fl (6.2-12.0); Monocyte# 0.56 X10^3/uL; Monocyte% 6.7 % (0-10); NRBC Flagged by Analyzer 0 % (0-5); Neutrophil # 4.82 X10^3/uL (2.7-7.7); Neutrophil % 57.4 % (47-70); Platelet Count 242 K/mm3 (150-450); RBC Distribution Width CV 17.7 % (11.6-14.6); RBC Distribution Width SD 52.4 fl (35.1-43.9); Red Blood Count 3.45 M/mm3 (4.2-5.4); White Blood Count 8.4 K/mm3 (4.4-11.0)
[2024-08-14 05:32] LABS: Anion Gap 5 (5-15); BUN 14 mg/dL (7-18); Calcium,Total 9.1 mg/dL (8.5-10.1); Chloride 102 mmol/L (98-107); Creatinine, Serum 0.82 mg/dL (0.55-1.02); EST Glomerular Filtration Rate 75 mL/min (>60); Est Glom Filt Rate - Afr Amer 91 mL/min (>60); Estimated Creatinine Clearance 103.91 ml/min; Glucose 85 mg/dL (74-106); Potassium 4.2 mmol/L (3.5-5.1); Sodium Level 136 mmol/L (136-145)
[2024-08-14] MEDS: Carbidopa/Levodopa 25/100 Tablet PO ×3 (06:05→17:07)
[2024-08-14] MEDS: Methadone 10 MG Tablet PO ×3 (06:07→22:20)
[2024-08-14] MEDS: Budesonide Respules 0.5 MG/2 ML AMPUL.NEB. INHALATION (07:35)
--- NOTE | 2024-08-14 08:04 | PN.HOSP_ITS ---
Reason for Visit Reason for Visit: Diagnoses Syncope and collapse (08/12/24) Subjective Subjective Patient is a 58-year-old lady who presented following a syncopal episode Objective Data Objective Data Vital Signs: Vital Signs Temp Pulse Resp BP Pulse Ox O2 Del Method O2 Flow Rate 98.1 F 61 16 113/73 98 Bi-pap 3 08/14/24 02:00 08/14/24 04:02 08/14/24 04:02 08/14/24 02:00 08/14/24 04:02 08/14/24 02:00 08/13/24 22:00 FiO2 30 08/14/24 04:02 Oxygen Flow Rate (L/min) 3 Oxygen Delivery Method Bi-pap Weight: 131.1 kg Body Mass Index (BMI) 46.6 Intake & Output: Intake and Output for Last 24 Hours 08/12/24 08/13/24 08/14/24 23:59 23:59 23:59 Intake Total 1000 / 1000 991.67 / 991.67 Balance 1000 / 1000 991.67 / 991.67 Lab / Micro Data 08/14/24 03:45 08/14/24 03:45 Labs: Laboratory Results - last 24 hr 08/13/24 03:23: Hemoglobin A1c 5.6 08/13/24 14:57: Hgb 7.8 L, Hct 26.6 L 08/14/24 03:45: WBC 8.4, RBC 3.45 L, Hgb 7.9 L, Hct 28.1 L, MCV 81.4, MCH 22.9 L , MCHC 28.1 L, RDW Std Deviation 52.4 H, RDW Coeff of Immanuel 17.7 H, Plt Count 242, MPV 10.3, Immature Gran % (Auto) 0.100, Neut % (Auto) 57.4, Lymph % (Auto) 31.5, [place] % (Auto) 6.7, Eos % (Auto) 3.7, Baso % (Auto) 0.6, Absolute Neuts (auto) 4.8, Absolute Lymphs (auto) 2.64, Nucleated RBC % 0, Sodium 136, Potassium 4.2, Chloride 102, Carbon Dioxide 29.0, Anion Gap 5, BUN 14, Creatinine 0.82, Estim Creat Clear Calc 103.91, Est GFR (MDRD) Af Amer 91, Est GFR (MDRD) Non-Af 75, BUN/Creatinine Ratio 17.0, Glucose 85, Calcium 9.1 Micro: Microbiology 08/13/24 09:41 Mucosa - Nose SARS-CoV-2, Influenza & RSV (PCR) - Final Physical Exam Narrative GENERAL: cooperative HEENT: Atraumatic; normocephalic EYES; Anicteric, Normal Conjunctiva NECK; supple, normal thyroid, RESPIRATORY: Diminished to auscultation CARDIOVASCULAR: Regular S1 S2, GI: soft, normoactive bowel sounds, : No Renal angle tenderness; EXTREMITIES: No edema, no clubbing, MUSCULOSKELETAL: no muscle wasting NEURO: Awake; no lateralizing signs. SKIN: No Rash PSYCH; Flat affect Assessment & Plan Assessment/Plan (1) Syncope: PLAN: Plan Patient is a 58-year-old lady who presented following a syncopal episode 1. Syncopal episode ? Patient admitted to a monitored bed placed on orthostatic monitoring. Echo obtained in June demonstrated EF of 60%. Workup has so far been negative today 2. Physical deconditioning ? Requested for PT OT eval and high school social studies teacher to assist with discharge planning 3. Chronic hypoxic respiratory failure ? Due to combination of COPD, obesity hypoventilation syndrome patient managed on BiPAP at night 4. COPD ? Currently not in exacerbation 5. Seizure disorder ? Secondary to hypoxic brain injury patient is on Keppra did continue 7. Depression with anxiety ? Patient is on mirtazapine as well as venlafaxine did continue 8. Chronic pain syndrome ? Did continue with patient pain regimen 9. History of previous VTE with DVT and PE ? Patient is on apixaban did continue 10. Class III obesity with BMI of 46.6 complicating care weight loss advised 11. Dyslipidemia ?Patient is on statin therapy, continued at home dose 12. Hypertension ? Blood pressure controlled, home medications continued with dose adjustment as needed 13. GERD ? 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 15. DVT prophylaxis ? Patient already anticoagulated with apixaban Time spent in the patient's overall evaluation,decision-making process, review of diagnostic data, adjustment of management, discussion with other providers, nursing nursing and ancillary staff involved in patient's care documentation, 40 Minutes Charges/Coding Visit Charges Inpatient E&M: 51030 Subs Hosp L2
[2024-08-14] MEDS: Acetaminophen 325 MG Tablet 650 MG PO (08:42)
[2024-08-14] MEDS: Senna/Docusate Sodium 1 Tablet 2 TABLET PO ×2 (09:19→22:23)
[2024-08-14] MEDS: Polyethylene Glycol 3350 17 GM PACKET PO (09:19)
[2024-08-14] MEDS: Furosemide 20 MG Tablet 30 MG PO (09:19)
[2024-08-14] MEDS: APIXABAN 5 MG TABLET PO ×2 (09:20→22:21)
[2024-08-14] MEDS: Pantoprazole Sodium 20 MG Tablet PO (09:20)
[2024-08-14] MEDS: Losartan Potassium 100 MG Tablet PO (09:20)
[2024-08-14] MEDS: guaiFENesin/D-Methorphan TAB.SR.12H 2 TABLET PO ×2 (09:21→22:22)
[2024-08-14] MEDS: Metoprolol(XL)Succ 50 MG Tablet PO (09:22)
[2024-08-14] MEDS: Venlafaxine XR 150 MG Capsule PO (09:22)
[2024-08-14] MEDS: levETIRAcetam 750 MG Tablet PO ×2 (09:22→22:22)
[2024-08-14] MEDS: Menthol/Lanolin/Calamine/Znox 113 GM Tube 1 APPLIC TOPICAL ×2 (09:22→14:10)
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
--- NOTE | 2024-08-14 13:44 | CASEMGMT ---
PAT ALBA NOTE: PAT ALBA informed that pt is interested in Palliative referral. Dr Ye made aware and order received. Referral sent to [facility] via e-mail. Mireya NAVA RN CM
--- NOTE | 2024-08-14 14:08 | CASEMGMT ---
Addendum entered by Drake Rodriguez 08/15/24 08:18: HHC also to be arranged @ pt's sister's area, if pt does end up discharging to sister's home. If new HHC is set up, [facility] will need notified to discharge pt from their services. Addendum entered by Drake Rodriguez 08/14/24 14:24: Clarification: Per Griselda, pt's sister interested in pt being connected w/Palliative in her (sister's) area, which is in [place]. Per [facility], they do cover [facility] and [facility]. Once pt's sister's address is confirmed where pt may be dc'ing home with, will notify [facility] palliative to verify pt can continue to receive their services @ sister's location. Original Note: PAT ALBA NOTE: Griselda STEWART, states pt interested in Palliative. Pt is already active w/[facility] care and they were notified yesterday that pt has been admitted to [facility]. Mireya NAVA RN, CM
--- NOTE | 2024-08-14 15:51 | CASEMGMT ---
Social Work- SW met with pt to further discuss discharge planning. Pt phone is charged and pt was able to provide what pt thinks is daughter Estelle's phone number. SW received a generic message and requested a call back. SW provided pt with SW phone number, as pt reports that she often communicates via messenger on facebook with dtr. SW remains available to follow. JERRICA Novoa
[2024-08-14] MEDS: Mirtazapine 15 MG Tablet 7.5 MG PO (22:21)
[2024-08-14] MEDS: Atorvastatin Calcium 20 MG Tablet PO (22:23)
[2024-08-15] VITALS (13 sets, daily range): BP systolic 97–114; BP diastolic 51–70; PULSE 57–78; RESP 14–18; TEMP 36.4–36.8; O2SAT 96–100; BMI 46.6
[2024-08-15] MEDS: LORazepam 1 MG Tablet PO ×3 (00:40→13:34)
[2024-08-15] MEDS: oxyCODONE 5 MG Tablet 15 MG PO ×3 (00:41→14:38)
[2024-08-15 05:49] LABS: Absolute Lymphocyte Count 2.39 X10^3/uL (0.83-4.51); Absolute Neutrophil Count 3.7 X10^3/uL (2.0-7.7); Basophil# 0.03 X10^3/uL; Basophil% 0.4 % (0-1); Eosinophil# 0.25 X10^3/uL; Eosinophils% 3.7 % (0-5); Hematocrit 25.1 % (37-47); Lymphocyte # 2.39 X10^3/ul (0.83-4.51); Mean Corp Hgb Conc 27.9 g/dL (32-36); Mean Corpuscular Hgb 22.5 pg (27.0-32.0); Mean Corpuscular Volume 80.7 fL (81-99); Mean Platelet Vol. 10.4 fl (6.2-12.0); Monocyte% 7.3 % (0-10); NRBC Flagged by Analyzer 0 % (0-5); Neutrophil # 3.65 X10^3/uL (2.7-7.7); Neutrophil % 53.5 % (47-70); Platelet Count 226 K/mm3 (150-450); RBC Distribution Width CV 17.7 % (11.6-14.6); Red Blood Count 3.11 M/mm3 (4.2-5.4); White Blood Count 6.8 K/mm3 (4.4-11.0)
[2024-08-15] MEDS: Carbidopa/Levodopa 25/100 Tablet PO ×3 (06:04→16:36)
[2024-08-15] MEDS: Methadone 10 MG Tablet PO ×2 (06:04→13:34)
[2024-08-15] MEDS: 0.9% Saline Lock 10 ML Syringe IV ×4 (06:10→14:39)
[2024-08-15 06:24] LABS: Anion Gap 4 (5-15); BUN 13 mg/dL (7-18); BUN/Creat Ratio 15.2 RATIO (10-20); Calcium,Total 8.7 mg/dL (8.5-10.1); Chloride 103 mmol/L (98-107); Creatinine, Serum 0.86 mg/dL (0.55-1.02); EST Glomerular Filtration Rate 72 mL/min (>60); Est Glom Filt Rate - Afr Amer 88 mL/min (>60); Estimated Creatinine Clearance 99.03 ml/min; Glucose 95 mg/dL (74-106); Magnesium 2.2 mg/dL (1.6-2.6); Potassium 4.4 mmol/L (3.5-5.1); Sodium Level 137 mmol/L (136-145)
[2024-08-15 06:30] LABS: Phosphorus 4.1 mg/dL (2.5-4.9)
--- NOTE | 2024-08-15 07:37 | PCM.PN.HOSP ---
Reason for Visit Reason for Visit: Diagnoses Syncope and collapse (08/12/24) Subjective Subjective Patient hemoglobin down to 7.0 and order was given for patient to be transfused 1 unit PRBC Objective Data Objective Data Vital Signs: Vital Signs Temp Pulse Resp BP Pulse Ox O2 Del Method O2 Flow Rate 97.6 F L 66 18 105/62 99 Nasal Cannula 3 08/15/24 04:09 08/15/24 04:09 08/15/24 04:09 08/15/24 04:09 08/15/24 04:09 08/15/24 04:10 08/15/24 04:10 FiO2 30 08/15/24 00:10 Oxygen Flow Rate (L/min) 3 Oxygen Delivery Method Nasal Cannula Weight: 131 kg Body Mass Index (BMI) 46.6 Intake & Output: Intake and Output for Last 24 Hours 08/13/24 08/14/24 08/15/24 23:59 23:59 23:59 Intake Total 991.67 / 991.67 120 / 120 120 / 120 Balance 991.67 / 991.67 120 / 120 120 / 120 Lab / Micro Data 08/15/24 04:51 08/15/24 04:51 Labs: Laboratory Results - last 24 hr 08/15/24 04:51: WBC 6.8, RBC 3.11 L, Hgb 7.0 L, Hct 25.1 L, MCV 80.7 L, MCH 22.5 L, MCHC 27.9 L, RDW Std Deviation 52.0 H, RDW Coeff of Immanuel 17.7 H, Plt Count 226, MPV 10.4, Immature Gran % (Auto) 0.100, Neut % (Auto) 53.5, Lymph % (Auto) 35.0, Love % (Auto) 7.3, Eos % (Auto) 3.7, Baso % (Auto) 0.4, Absolute Neuts (auto) 3.7, Absolute Lymphs (auto) 2.39, Nucleated RBC % 0, Sodium 137, Potassium 4.4, Chloride 103, Carbon Dioxide 30.0, Anion Gap 4 L, BUN 13, Creatinine 0.86, Estim Creat Clear Calc 99.03, Est GFR (MDRD) Af Amer 88, Est GFR (MDRD) Non-Af 72, BUN/Creatinine Ratio 15.2, Glucose 95, Calcium 8.7, Phosphorus 4.1, Magnesium 2.2 Micro: Microbiology 08/13/24 09:41 Mucosa - Nose SARS-CoV-2, Influenza & RSV (PCR) - Final Physical Exam Narrative GENERAL: cooperative HEENT: Atraumatic; normocephalic EYES; Anicteric, Normal Conjunctiva NECK; supple, normal thyroid, RESPIRATORY: Diminished to auscultation CARDIOVASCULAR: Regular S1 S2, GI: soft, normoactive bowel sounds, : No Renal angle tenderness; EXTREMITIES: No edema, no clubbing, MUSCULOSKELETAL: no muscle wasting NEURO: Awake; no lateralizing signs. SKIN: No Rash PSYCH; Flat affect Assessment & Plan Assessment/Plan (1) Syncope: PLAN: Plan Patient is a 58-year-old lady who presented following a syncopal episode 1. Syncopal episode ? Patient admitted to a monitored bed placed on orthostatic monitoring. Echo obtained in June demonstrated EF of 60%. Workup has so far been negative today 2. Physical deconditioning ? Requested for PT OT eval and social sciences department chair to assist with discharge planning 3. Chronic hypoxic respiratory failure ? Due to combination of COPD, obesity hypoventilation syndrome patient managed on BiPAP at night 4. COPD ? Currently not in exacerbation 5. Seizure disorder ? Secondary to hypoxic brain injury patient is on Keppra did continue 7. Depression with anxiety ? Patient is on mirtazapine as well as venlafaxine did continue 8. Chronic pain syndrome ? Did continue with patient pain regimen 9. History of previous VTE with DVT and PE ? Patient is on apixaban did continue 10. Class III obesity with BMI of 46.6 complicating care weight loss advised 11. Dyslipidemia ?Patient is on statin therapy, continued at home dose 12. Hypertension ? Blood pressure controlled, home medications continued with dose adjustment as needed 13. GERD ? 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 15. DVT prophylaxis ? Patient already anticoagulated with apixaban 16. Anemia ? Given the significant drop in patient hemoglobin level ordered iron studies and an order given for patient to be transfused with 1 unit PRBC. Subsequently monitoring H&H and transfuse if patient becomes symptomatic or hemoglobin falls below 7 Time spent in the patient's overall evaluation,decision-making process, review of diagnostic data, adjustment of management, discussion with other providers, nursing nursing and ancillary staff involved in patient's care documentation, 40 Minutes Charges/Coding Visit Charges Inpatient E&M: 72091 Subs Hosp L2
[2024-08-15] MEDS: Budesonide Respules 0.5 MG/2 ML AMPUL.NEB. INHALATION (08:01)
--- NOTE | 2024-08-15 10:19 | CASEMGMT ---
Referral sent to [facility]. Yessi Staples DC Planning Asst.
[2024-08-15] MEDS: Menthol/Lanolin/Calamine/Znox 113 GM Tube 1 APPLIC TOPICAL (10:28)
[2024-08-15] MEDS: Venlafaxine XR 150 MG Capsule PO (10:30)
[2024-08-15] MEDS: levETIRAcetam 750 MG Tablet PO (10:31)
[2024-08-15] MEDS: APIXABAN 5 MG TABLET PO (10:31)
[2024-08-15] MEDS: guaiFENesin/D-Methorphan TAB.SR.12H 2 TABLET PO (10:31)
[2024-08-15] MEDS: Pantoprazole Sodium 20 MG Tablet PO (10:32)
[2024-08-15] MEDS: Senna/Docusate Sodium 1 Tablet 2 TABLET PO (10:32)
--- NOTE | 2024-08-15 10:45 | CASEMGMT ---
SW spoke with patient about a d/c plan. Patient was back and forth regarding her discharge plan. Patient decided maybe she should go to rehab first. SW went over list with patient. Patient's first choice is ([facility]). SW asked Yessi to please send a referral to [facility]. Kathryn ROWE
--- NOTE | 2024-08-15 11:51 | PCM.TXEXTCAR ---
Diet Diet Order/Speech Therapy: 08/13/24 00:54 Diet: Cardiac - Heart Healthy Food consistency:: Regular Liquid Consistency:: Regular/Thin Routine Orders/Code Status Code Status: Full Code DC O2, CPAP, BIPAP needs Home O2 Discharge instructions: Yes Type of respiratory needs?: Oxygen Oxygen frequency: Continuous Continuous oxygen liters per minute: 2 Wound(s) BETWEEN 5TH/4TH FINGER: Wound Type: Laceration LEFT LATERAL 5TH FINGER: Wound Type: Laceration Therapies Physical Therapy: Eval and Treat Occupational Therapy: Eval and Treat Problem/Diagnosis (1) Syncope: Status: Acute Code(s): R55 - Syncope and collapse Plan Patient is a 58-year-old lady who presented following a syncopal episode 1. Syncopal episode ? Patient admitted to a monitored bed placed on orthostatic monitoring. Echo obtained in June demonstrated EF of 60%. Workup has so far been negative today 2. Physical deconditioning ? Requested for PT OT eval and social work job titles to assist with discharge planning 3. Chronic hypoxic respiratory failure ? Due to combination of COPD, obesity hypoventilation syndrome patient managed on BiPAP at night 4. COPD ? Currently not in exacerbation 5. Seizure disorder ? Secondary to hypoxic brain injury patient is on Keppra did continue 7. Depression with anxiety ? Patient is on mirtazapine as well as venlafaxine did continue 8. Chronic pain syndrome ? Did continue with patient pain regimen 9. History of previous VTE with DVT and PE ? Patient is on apixaban did continue 10. Class III obesity with BMI of 46.6 complicating care weight loss advised 11. Dyslipidemia ?Patient is on statin therapy, continued at home dose 12. Hypertension ? Blood pressure controlled, home medications continued with dose adjustment as needed 13. GERD ? 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 15. DVT prophylaxis ? Patient already anticoagulated with apixaban 16. Anemia ? Given the significant drop in patient hemoglobin level ordered iron studies and an order given for patient to be transfused with 1 unit PRBC. Subsequently monitoring H&H and transfuse if patient becomes symptomatic or hemoglobin falls below 7 Time spent in the patient's overall evaluation,decision-making process, review of diagnostic data, adjustment of management, discussion with other providers, nursing nursing and ancillary staff involved in patient's care documentation, 40 Minutes Allergies/Procedures Done in Hospital Allergies aspirin Allergy (Verified 08/12/24 21:04) Hives dicyclomine Allergy (Verified 08/12/24 21:04) Itching ibuprofen Allergy (Verified 08/12/24 21:04) Hives ketorolac tromethamine (From Toradol) Allergy (Verified 08/12/24 21:04) Angioedema nut - unspecified Allergy (Verified 08/12/24 21:04) Hives Penicillins (PCN) Allergy (Verified 08/12/24 21:04) Hives tramadol HCl (From Ultram) Allergy (Verified 08/12/24 21:04) Angioedema Type of Care/Length of Stay Estimated LOS: Convalescent Care Less Than 30 days Type of Care Needed: Intermediate Rehab Potential: Good Prognosis: Good Additional Orders/Day of Discharge Day of Discharge: 08/15/24 Dietary and Speech Recommendations Dietitian Recommendations/Changes: Continue Cardiac diet to manage medical conditions Discharge Plan Admission Admit Date/Time: 08/12/24 23:51 Attending Provider: Alexadner Ye Primary Care Provider: Ysabel Ruffin Consulting Providers: Aleksandra Hurley; Nick Romano Discharge Orders/Prescriptions Prescriptions: New acetaminophen 325 mg Tablet 650 mg PO Q4H PRN PRN (Reason: Fever, pain 1-10/10) Qty: 0 0RF Mucinex DM 30-600 mg Tablet Extended Release 12 Hr 2 tab PO BID Qty: 0 0RF ipratropium-albuterol 0.5 mg-3 mg(2.5 mg base)/3 mL Solution For Nebulization 3 ml inhalation Q4H.RT PRN (Reason: Shortness Of Breath) Qty: 0 0RF budesonide 0.5 mg/2 mL Suspension For Nebulization 0.5 mg inhalation BID.RT Qty: 0 0RF Continued (DME) compr.stocking,thigh,reg,x-lrg Misc See Rx Instructions .Route Qty: 24 0RF Rx Instructions: As directed miscellaneous medical supply Kit 1 ea miscellaneous DAILY Qty: 1 0RF Rx Instructions: Motorized wheelchair Eliquis 5 mg tablet 5 mg PO BID Qty: 60 1RF losartan [Cozaar] 100 mg tablet 100 mg PO DAILY Qty: 30 1RF metoprolol succinate 100 mg tablet extended release 24 hr 50 mg PO DAILY Qty: 15 1RF Patient Comments: TAKE (1) TABLET BY MOUTH ONCE DAILY Rx Instructions: Hold for heart less than 60 or systolic blood pressure less than 100 mmHg. mirtazapine 7.5 mg tablet 7.5 mg PO QHS Qty: 30 0RF omeprazole 20 mg capsule,delayed release(DR/EC) 20 mg PO DAILY Qty: 30 1RF venlafaxine [Effexor XR] 150 mg capsule,extended release 24hr 150 mg PO DAILY Qty: 30 0RF levetiracetam 750 mg tablet 750 mg PO BID Qty: 60 6RF carbidopa-levodopa 25-100 mg tablet 2 tab PO TID Qty: 180 6RF rosuvastatin 10 mg tablet 10 mg PO DAILY 30 Days Qty: 30 2RF sennosides-docusate sodium [Senexon-S] 8.6-50 mg tablet 1 tab-cap PO DAILY Patient Comments: [NO ORIGINAL SIG] ferrous sulfate [FeroSul] 325 mg (65 mg iron) tablet 325 mg PO QODAY cholecalciferol (vitamin D3) 1,250 mcg (50,000 unit) capsule 1,250 mcg PO QWEEK naloxone 4 mg/actuation spray,non-aerosol 1 spray INTRANASAL Q2M PRN (Reason: opioid overdose) Patient Comments: ADMINISTER A SINGLE SPRAY INTRANASALLY INTO ONE NOSTRIL OF VICTIM SUSPECTED OF EXPERIENCING AN OPIOID-RELATED OVERDOSE. CALL 911. REPEAT WITH SECOND DEVICE INTO OTHER NOSTRIL AFTER 2-3 MINUTES IF NO OR MINIMAL RESPONSE. methadone 10 mg tablet 10 mg PO Q8 3 Days Qty: 9 0RF oxycodone 15 mg tablet 15 mg PO Q4H PRN (Reason: pain) 3 Days Qty: 10 0RF lorazepam 1 mg tablet 1 mg PO Q6H Qty: 6 0RF Rx Instructions: take one tablet q12hrs routinely and q4hrs prn anxiety miscellaneous medical supply Misc 1 ea miscellaneous DAILY Qty: 1 0RF Rx Instructions: Hospital Bed miscellaneous medical supply Misc 1 ea miscellaneous DAILY Qty: 1 0RF Rx Instructions: lift chair polyethylene glycol 3350 [Miralax] 17 gram/dose powder 4 g PO DAILY Qty: 119 0RF albuterol sulfate 90 mcg/actuation HFA aerosol inhaler 2 puff inhalation Q6H PRN (Reason: shortness of breath or wheezing) Qty: 8.5 0RF ondansetron HCl 4 mg tablet 4 mg PO Q8H PRN (Reason: nausea and vomiting) Qty: 30 1RF (DME) miscellaneous medical supply Misc See Rx Instructions .Route Qty: 1 0RF Rx Instructions: As directed furosemide 20 mg tablet 30 mg PO DAILY Qty: 45 1RF (DME) miscellaneous medical supply Misc See Rx Instructions .Route Qty: 1 0RF Rx Instructions: As directed Referrals / Follow Up: Ysabel Ruffin MD [Primary Care Provider] - Disposition Disposition (needs filled in before D/C Order can be placed): Group Home Facility
--- NOTE | 2024-08-15 11:58 | PCM.DC.SUM ---
Providers Date of Admission: 08/12/24 Date of Discharge: 08/15/24 Primary Care Physician: Dr. Ysabel Ruffin MD Reason For Visit: SYNCOPAL EVENTS, FALLS, ADULT FTT Diagnosis Discharge Diagnosis (1) Syncope: Status: Acute Code(s): R55 - Syncope and collapse Plan Patient is a 58-year-old lady who presented following a syncopal episode 1. Syncopal episode ? Patient admitted to a monitored bed placed on orthostatic monitoring. Echo obtained in June demonstrated EF of 60%. Workup has so far been negative today 2. Physical deconditioning ? Requested for PT OT eval and administrator social welfare to assist with discharge planning -Plan was for patient to have been [facility] she however requested to be discharged home with home health. Discharge was effected following patient blood transfusion 3. Chronic hypoxic respiratory failure ? Due to combination of COPD, obesity hypoventilation syndrome patient managed on BiPAP at night 4. COPD ? Currently not in exacerbation 5. Seizure disorder ? Secondary to hypoxic brain injury patient is on Keppra did continue 7. Depression with anxiety ? Patient is on mirtazapine as well as venlafaxine did continue 8. Chronic pain syndrome ? Did continue with patient pain regimen 9. History of previous VTE with DVT and PE ? Patient is on apixaban did continue 10. Class III obesity with BMI of 46.6 complicating care weight loss advised 11. Dyslipidemia ?Patient is on statin therapy, continued at home dose 12. Hypertension ? Blood pressure controlled, home medications continued with dose adjustment as needed 13. GERD ? 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 15. DVT prophylaxis ? Patient already anticoagulated with apixaban 16. Anemia ? Given the significant drop in patient hemoglobin level ordered iron studies and an order given for patient to be transfused with 1 unit PRBC. Subsequently monitoring H&H and transfuse if patient becomes symptomatic or hemoglobin falls below 7 Time spent in the patient's overall evaluation,decision-making process, review of diagnostic data, adjustment of management, discussion with other providers, nursing nursing and ancillary staff involved in patient's care documentation, 40 Minutes Medications at Discharge Home Medications compr.stocking,thigh,reg,x-lrg #24 ea 01/15/24 miscellaneous medical supply 1 ea miscellaneous DAILY debility #1 ea 01/16/24 miscellaneous medical supply 1 ea miscellaneous DAILY #1 ea 04/29/24 miscellaneous medical supply 1 ea miscellaneous DAILY #1 ea 04/29/24 polyethylene glycol 3350 17 gram/dose oral powder (Miralax) 4 g PO DAILY stool softener #119 grams 06/11/24 rosuvastatin 10 mg tablet 10 mg PO DAILY 1 month #30 tabs 06/23/24 albuterol sulfate 90 mcg/actuation aerosol inhaler 2 puff inhalation Q6H PRN shortness of breath or wheezing #8.5 grams 06/26/24 apixaban 5 mg tablet (Eliquis) 5 mg PO BID blood thinner #60 tabs 06/26/24 losartan 100 mg tablet (Cozaar) 100 mg PO DAILY blood pressure #30 tabs 06/26/24 metoprolol succinate 100 mg tablet,extended release 24 hr 50 mg (1/2 x 100 mg) PO DAILY blood pressure #15 tabs 06/26/24 mirtazapine 7.5 mg tablet 7.5 mg PO QHS sleep #30 tabs 06/26/24 omeprazole 20 mg capsule,delayed release 20 mg PO DAILY acid reflux #30 caps 06/26/24 venlafaxine 150 mg capsule,extended release 24 hr (Effexor XR) 150 mg PO DAILY #30 caps 06/26/24 miscellaneous medical supply #1 ea 07/08/24 ondansetron HCl 4 mg tablet 4 mg PO Q8H PRN nausea and vomiting #30 tabs 07/08/24 furosemide 20 mg tablet 30 mg (1.5 x 20 mg) PO DAILY #45 TABLETS 07/22/24 carbidopa 25 mg-levodopa 100 mg tablet 2 tab PO TID #180 tabs 07/23/24 levetiracetam 750 mg tablet 750 mg PO BID #60 tabs 07/23/24 miscellaneous medical supply #1 ea 07/29/24 cholecalciferol (vitamin D3) 1,250 mcg (50,000 unit) capsule 1,250 mcg PO QWEEK 08/12/24 ferrous sulfate 325 mg (65 mg iron) tablet (FeroSul) 325 mg PO QODAY 08/12/24 naloxone 4 mg/actuation nasal spray 1 spray intranasal Q2M PRN opioid overdose 08/12/24 sennosides 8.6 mg-docusate sodium 50 mg tablet (Senexon-S) 1 tab-cap PO DAILY 08/12/24 acetaminophen 325 mg tablet 650 mg (2 x 325 mg) PO Q4H PRN PRN Fever, pain 1-05/01 #0 tabs 08/15/24 budesonide 0.5 mg/2 mL suspension for nebulization 0.5 mg (2 mL) inhalation BID.RT #0 mL 08/15/24 dextromethorphan-guaifenesin 30 mg-600 mg tablet extended [id number] hr (Mucinex DM) 2 tab PO BID #0 tabs 08/15/24 ipratropium 0.5 mg-albuterol 3 mg (2.5 mg base)/3 mL nebulization soln 3 ml inhalation Q4H.RT PRN Shortness Of Breath #0 mL 08/15/24 lorazepam 1 mg tablet 1 mg PO Q6H anxiety #6 tabs 08/15/24 methadone 10 mg tablet 10 mg PO Q8 3 days #9 tabs 08/15/24 oxycodone 15 mg tablet 15 mg PO Q4H PRN pain 3 days #10 tabs 08/15/24 Physical Exam Narrative GENERAL: cooperative HEENT: Atraumatic; normocephalic EYES; Anicteric, Normal Conjunctiva NECK; supple, normal thyroid, RESPIRATORY: Diminished to auscultation CARDIOVASCULAR: Regular S1 S2, GI: soft, normoactive bowel sounds, : No Renal angle tenderness; EXTREMITIES: No edema, no clubbing, MUSCULOSKELETAL: no muscle wasting NEURO: Awake; no lateralizing signs. SKIN: No Rash PSYCH; Flat affect Weight / BMI Weight Weight: 131 kg Body Mass Index (BMI) 46.6 ABG / Lab / Microbiology Data 08/15/24 04:51 08/15/24 04:51 Laboratory: Laboratory Results - last 24 hr 08/15/24 04:51: WBC 6.8, RBC 3.11 L, Hgb 7.0 L, Hct 25.1 L, MCV 80.7 L, MCH 22.5 L, MCHC 27.9 L, RDW Std Deviation 52.0 H, RDW Coeff of Immanuel 17.7 H, Plt Count 226, MPV 10.4, Immature Gran % (Auto) 0.100, Neut % (Auto) 53.5, Lymph % (Auto) 35.0, Loving % (Auto) 7.3, Eos % (Auto) 3.7, Baso % (Auto) 0.4, Absolute Neuts (auto) 3.7, Absolute Lymphs (auto) 2.39, Nucleated RBC % 0, Sodium 137, Potassium 4.4, Chloride 103, Carbon Dioxide 30.0, Anion Gap 4 L, BUN 13, Creatinine 0.86, Estim Creat Clear Calc 99.03, Est GFR (MDRD) Af Amer 88, Est GFR (MDRD) Non-Af 72, BUN/Creatinine Ratio 15.2, Glucose 95, Calcium 8.7, Phosphorus 4.1, Magnesium 2.2 08/15/24 10:06: Blood Type A POSITIVE, Antibody Screen NEGATIVE, Crossmatch See Detail Microbiology: Microbiology 08/13/24 09:41 Mucosa - Nose SARS-CoV-2, Influenza & RSV (PCR) - Final D/C Instructions Discharge Diet: No restrictions Discharge Activity: Return to Normal Activity Call your doctor if you observe: Fever of 101 or Higher, Shortness of breath, Fainting spells and Chest pain DC O2, CPAP, BIPAP Needs PSN CPAP & BiPAP: BiPAP & CPAP Settings per PSN Mode BiPAP 08/15/24 00:10 Bipap Delivery Device Face Mask 08/15/24 00:10 BiPAP Inspiratory Pressure 14 08/15/24 00:10 BiPAP Expiratory Pressure 8 08/15/24 00:10 BiPAP Rate 14 08/15/24 00:10 Fraction of Inspired Oxygen ( 30 08/15/24 00:10 FIO2) Home O2 Discharge instructions: Yes Type of respiratory needs?: Oxygen Oxygen frequency: Continuous Continuous oxygen liters per minute: 2 DC home with Oxygen: No Meaningful Use Info Meaningful Use Meaningful Use Diagnoses (Choose all that apply): None applicable Ischemic Stroke Statin Dosing Therapy Reference: STATIN DOSE THERAPY REFERENCE: * Patients > 75 years receive moderate or high dose statin therapy. * Patients 75 years or YOUNGER should receive HIGH intensity statin dose unless contraindicated. You will be required to document reason for non-treatment if statin daily dose does not meet guidelines. HIGH DOSE STATIN THERAPY DAILY Atorvastatin > than or = to 40 mg Rosuvastatin > than or = to 20 mg Amlodipine + Atorvastatin > than or = to 2.5/40 mg Ezetimibe + Simvastatin 10/80 mg Simvastatin 80mg Discharge Plan Admission Admit Date/Time: 08/12/24 23:51 Attending Provider: Alexander Ye Primary Care Provider: Ysabel Ruffin Consulting Providers: Aleksandra Hurley; Nick Romano Discharge Orders/Prescriptions Prescriptions: New acetaminophen 325 mg Tablet 650 mg PO Q4H PRN PRN (Reason: Fever, pain 1-05/01) Qty: 0 0RF Mucinex DM 30-600 mg Tablet Extended Release 12 Hr 2 tab PO BID Qty: 0 0RF ipratropium-albuterol 0.5 mg-3 mg(2.5 mg base)/3 mL Solution For Nebulization 3 ml inhalation Q4H.RT PRN (Reason: Shortness Of Breath) Qty: 0 0RF budesonide 0.5 mg/2 mL Suspension For Nebulization 0.5 mg inhalation BID.RT Qty: 0 0RF Continued (DME) compr.stocking,thigh,reg,x-lrg Misc See Rx Instructions .Route Qty: 24 0RF Rx Instructions: As directed miscellaneous medical supply Kit 1 ea miscellaneous DAILY Qty: 1 0RF Rx Instructions: Motorized wheelchair Eliquis 5 mg tablet 5 mg PO BID Qty: 60 1RF losartan [Cozaar] 100 mg tablet 100 mg PO DAILY Qty: 30 1RF metoprolol succinate 100 mg tablet extended release 24 hr 50 mg PO DAILY Qty: 15 1RF Patient Comments: TAKE (1) TABLET BY MOUTH ONCE DAILY Rx Instructions: Hold for heart less than 60 or systolic blood pressure less than 100 mmHg. mirtazapine 7.5 mg tablet 7.5 mg PO QHS Qty: 30 0RF omeprazole 20 mg capsule,delayed release(DR/EC) 20 mg PO DAILY Qty: 30 1RF venlafaxine [Effexor XR] 150 mg capsule,extended release 24hr 150 mg PO DAILY Qty: 30 0RF levetiracetam 750 mg tablet 750 mg PO BID Qty: 60 6RF carbidopa-levodopa 25-100 mg tablet 2 tab PO TID Qty: 180 6RF rosuvastatin 10 mg tablet 10 mg PO DAILY 30 Days Qty: 30 2RF sennosides-docusate sodium [Senexon-S] 8.6-50 mg tablet 1 tab-cap PO DAILY Patient Comments: [NO ORIGINAL SIG] ferrous sulfate [FeroSul] 325 mg (65 mg iron) tablet 325 mg PO QODAY cholecalciferol (vitamin D3) 1,250 mcg (50,000 unit) capsule 1,250 mcg PO QWEEK naloxone 4 mg/actuation spray,non-aerosol 1 spray INTRANASAL Q2M PRN (Reason: opioid overdose) Patient Comments: ADMINISTER A SINGLE SPRAY INTRANASALLY INTO ONE NOSTRIL OF VICTIM SUSPECTED OF EXPERIENCING AN OPIOID-RELATED OVERDOSE. CALL 911. REPEAT WITH SECOND DEVICE INTO OTHER NOSTRIL AFTER 2-3 MINUTES IF NO OR MINIMAL RESPONSE. methadone 10 mg tablet 10 mg PO Q8 3 Days Qty: 9 0RF oxycodone 15 mg tablet 15 mg PO Q4H PRN (Reason: pain) 3 Days Qty: 10 0RF lorazepam 1 mg tablet 1 mg PO Q6H Qty: 6 0RF Rx Instructions: take one tablet q12hrs routinely and q4hrs prn anxiety miscellaneous medical supply Misc 1 ea miscellaneous DAILY Qty: 1 0RF Rx Instructions: Hospital Bed miscellaneous medical supply Misc 1 ea miscellaneous DAILY Qty: 1 0RF Rx Instructions: lift chair polyethylene glycol 3350 [Miralax] 17 gram/dose powder 4 g PO DAILY Qty: 119 0RF albuterol sulfate 90 mcg/actuation HFA aerosol inhaler 2 puff inhalation Q6H PRN (Reason: shortness of breath or wheezing) Qty: 8.5 0RF ondansetron HCl 4 mg tablet 4 mg PO Q8H PRN (Reason: nausea and vomiting) Qty: 30 1RF (DME) miscellaneous medical supply Misc See Rx Instructions .Route Qty: 1 0RF Rx Instructions: As directed furosemide 20 mg tablet 30 mg PO DAILY Qty: 45 1RF (DME) miscellaneous medical supply Misc See Rx Instructions .Route Qty: 1 0RF Rx Instructions: As directed Referrals / Follow Up: Ysabel Ruffin MD [Primary Care Provider] - In 1 Week Disposition Disposition (needs filled in before D/C Order can be placed): Home Health Service Charges/Coding Visit Charges Inpatient E&M: 00641 Disch Hosp >30min
--- NOTE | 2024-08-15 14:24 | CASEMGMT ---
SW went to patient's room to let her know [facility] has not responded. SW asked patient if there is another facility she would be willing to go to. Patient said she thinks she will just go back to her brothers as she does not really feel she needs rehab. Patient then said she is going to work on getting down to her daughters. She asked SW to call her daughter Estelle ([phone]). SW called Estelle and she is okay with patient coming to her home. Only issue that may come up is there is no bathtub or shower on the first floor. WILNER explained that patient will resume her home health therapy while she is at her brothers. She will be getting therapy. SW notified patient that SW called her daughter. SW asked patient if she is sure this is what she wants to do and patient said, Yes. Patient said her sister is also staying at her brothers. She and her sister also talked about getting a place together. SW let patient know that [facility] will resume their services. Social Work was added to assist with next steps. Patient wanted scripts for her sleeping pill and her antidepressant sent to her pharmacy. SW spoke with physician and it is felt patient needs to follow up with her PCP for these. SW notified patient. Patient stated her sister and sister in law are on their way to the hospital now. Plan: d/c home with resumption of [facility].
== END 2024-08-15 16:53 | disposition home health service (06) | DRG 204 ==
LOC: ED 22:57 → ICU 08-13 00:07 → PCU 08-14 17:48
PROVIDERS: Internal Medicine; Admitting Provider Family Medicine; Emergency Provider Emergency Medicine; PCP Internal Medicine; Visit Provider Internal Medicine
DX: R55 Syncope and collapse (principal); E66.2 Morbid (severe) obesity with alveolar hypoventilation; G20.A1 Parkinson's disease without dyskinesia, without mention of fluctuations; R62.7 Adult failure to thrive; I13.0 Hypertensive heart and chronic kidney disease with heart failure and stage 1 through stage 4 chronic kidney disease, or unspecified chronic kidney disease; G40.909 Epilepsy, unspecified, not intractable, without status epilepticus; J44.9 Chronic obstructive pulmonary disease, unspecified; D50.9 Iron deficiency anemia, unspecified; F32.A Depression, unspecified; E78.5 Hyperlipidemia, unspecified; I25.10 Atherosclerotic heart disease of native coronary artery without angina pectoris; N18.2 Chronic kidney disease, stage 2 (mild); S61.412A Laceration without foreign body of left hand, initial encounter; Z68.42 Body mass index [BMI] 45.0-49.9, adult; K21.9 Gastro-esophageal reflux disease without esophagitis; F41.9 Anxiety disorder, unspecified; J06.9 Acute upper respiratory infection, unspecified; Z99.81 Dependence on supplemental oxygen; G89.4 Chronic pain syndrome; R29.6 Repeated falls; R73.9 Hyperglycemia, unspecified; Z79.01 Long term (current) use of anticoagulants; Z86.73 Personal history of transient ischemic attack (TIA), and cerebral infarction without residual deficits; Z86.718 Personal history of other venous thrombosis and embolism; Z86.711 Personal history of pulmonary embolism; Z87.891 Personal history of nicotine dependence
CPT/HCPCS: 36415; 70450; 71260; 72125; 73130; 74177; 80048; 80053; 80076; 81001; 83036; 83735; 84100; 84484; 85014; 85018; 85025; 85610; 85730; 86850; 86900; 86901; 87631; 93005; 94002; 94003; 94640; 94668; 97116; 97162; 97166; 97530; 97535; 99285; P9016; P9612; Q9967; A4216; J2405

== ENCOUNTER → 2024-09-01 | Outpatient (CLI) | payer MEDICAID, SELFPAY ==
[2024-09-01 14:38] LABS: Mucous, Urine 0 SEEN /hpf (<or=2+)
[2024-09-01 20:21] LABS: Color, Urine Yellow (Yellow); Glucose, Dipstick Normal (Normal); Ketone-Dipstick 5 mg/dl (Negative); Leukocyte Esterase-Dipstick 500 /ul (Negative); Nitrite-Dipstick Positive (Negative); Occult Blood-Urine 150 /ul (Negative); Protein-Dipstick 30 mg/dl (Negative); Specific Gravity, Urine 1.015 (1.002-1.030); Urine Bilirubin Dipstick Negative (Negative); Urine Clarity Cloudy (Clear); Urine Urobilinogen Normal (Normal)
[2024-09-01 20:36] LABS: Bacteria 1+ /hpf (None Seen); Red Blood Cells-Urine 0-5 SEEN /hpf (0-5); Squamous Epithelial Cells - UA 0-5 SEEN /hpf (5-10); White Blood Cells >100 SEEN /hpf (0-5)
== END | disposition home or self-care (01) ==
PROVIDERS: PCP Internal Medicine; Referring Provider Internal Medicine; Visit Provider Internal Medicine
DX: R39.15 Urgency of urination (principal)
CPT/HCPCS: 81001; 87077; 87086; 87088; 87186

== ENCOUNTER → 2024-11-14 | Outpatient (CLI) | payer MEDICAID, SELFPAY ==
--- NOTE | 2024-11-14 08:58 | CT_ITS ---
PROCEDURE: BRAIN/HEAD W/WO CONTRAST 11/14/2024 REASON FOR EXAM: HEADACH POST INJURY TECHNIQUE: Contiguous axial scans of 3.75 mm slice thicknesses. Sagittal and coronal reconstruction images were obtained. One or more dose reduction techniques were used (e.g., automated exposure control, adjustment of mA and/or kv according to patient size, use of iterative reconstruction technique). CONTRAST: ISOVUE 370 VOLUME: 50 mL RADIATION DOSE SUMMARY: CTDlvol: 89.98 mGy DLP: 1648.46 mGycm COMPARISON: No relevant prior. FINDINGS: Cerebrum: No intraparenchymal hemorrhage. No abnormal areas of encephalomalacia. No mass effect or midline shift. Howe-white matter differentiation is normal. No enhancing lesions are demonstrated. Ventricles and cisterns: Appropriate size for patient's age. Extra-axial fluid: Unremarkable. Posterior fossa: Unremarkable cerebellum. No abnormalities involving the brainstem. Paranasal sinuses: Normal. Vasculature: Unremarkable. Mastoid air cells: Normal. Calvarium: Unremarkable. Mild rightward deviation of the nasal septum. Soft tissues: Unremarkable. CT/Brain/Head W/WO Contrast IMPRESSION: Unremarkable CT brain without and with contrast. Reading Location: [facility]
[2024-11-14 09:41] LABS: Absolute Lymphocyte Count 1.57 X10^3/uL (0.83-4.51); Absolute Neutrophil Count 4.5 X10^3/uL (2.0-7.7); Basophil# 0.03 X10^3/uL; Basophil% 0.4 % (0-1); Eosinophil# 0.13 X10^3/uL; Eosinophils% 1.9 % (0-5); Hematocrit 28.7 % (37-47); Hemoglobin 8.4 g/dL (12.0-15.0); Lymphocyte # 1.57 X10^3/ul (0.83-4.51); Lymphocyte % 23.3 % (19-41); Mean Corp Hgb Conc 29.3 g/dL (32-36); Mean Corpuscular Hgb 24.9 pg (27.0-32.0); Mean Corpuscular Volume 85.2 fL (81-99); Mean Platelet Vol. 9.9 fl (6.2-12.0); Monocyte# 0.48 X10^3/uL; Monocyte% 7.1 % (0-10); NRBC Flagged by Analyzer 0 % (0-5); Platelet Count 195 K/mm3 (150-450); RBC Distribution Width CV 14.6 % (11.6-14.6); RBC Distribution Width SD 45.1 fl (35.1-43.9); Red Blood Count 3.37 M/mm3 (4.2-5.4); White Blood Count 6.7 K/mm3 (4.4-11.0)
== END | disposition home or self-care (01) ==
PROVIDERS: PCP Internal Medicine; Visit Provider Physician Assistant
DX: S09.90XA Unspecified injury of head, initial encounter (principal); R42 Dizziness and giddiness; R51.9 Headache, unspecified; X58.XXXA Exposure to other specified factors, initial encounter
CPT/HCPCS: 36415; 70470; 85025; Q9967

== ENCOUNTER 2024-11-20 10:47 | Emergency (ER) | payer MEDICAID, SELFPAY ==
[2024-11-20 10:48] VITALS: BP 91/81; PULSE 92; RESP 22; TEMP 36.1; O2SAT 96
--- NOTE | 2024-11-20 10:52 | RAD_ITS ---
EXAM: Left wrist three views CLINICAL HISTORY: Fall, pain COMPARISON: August 12, 2024 TECHNIQUE: Three views of the left breast FINDINGS: There is no fracture or dislocation. Joint spaces are maintained. Mineralization is normal. There is no visible radiopaque foreign body. Soft tissue swelling is noted at the dorsal wrist level. RAD/Wrist min 3 Views IMPRESSION: There is no fracture or dislocation identified. There is soft tissue swelling noted at the dorsal aspect of the wrist. Reading Location: [facility]
--- NOTE | 2024-11-20 11:00 | RAD_ITS ---
PROCEDURE: HAND MIN 3 VIEWS 11/20/2024 REASON FOR EXAM: FALL TECHNIQUE: Three views of the left hand COMPARISON: August 12, 2024 FINDINGS: There is no fracture or dislocation identified. The joint spaces are maintained. Mineralization is normal. There is no visible radiopaque foreign body or soft tissue abnormality identified. RAD/Hand Min 3 Views IMPRESSION: No fracture or dislocation is identified. Reading Location: [facility]
--- NOTE | 2024-11-20 11:09 | EX.ED.UPPERE ---
HPI History of Present Illness Chief Complaint: Upper Extremity Injury Narrative Narrative: 59-year-old female past medical history of Parkinson's disease, states she is in palliative care and takes oxycodone 15 mg for chronic pain, presents with injury to her left wrist that she sustained yesterday afternoon at around 3 or 4 PM. She states she was trying to walk the dogs, and the smaller one tripped up over her feet. She fell forward onto an outstretched wrist. She now complains of left hand pain and swelling as well as left wrist pain worse with movement. She denies hitting her head or loss of consciousness, no other injury. She is right-hand dominant. She feels it is more like a toothache describing the pain in her left hand. [facility] Medical History H/O long-term (current) use of anticoagulants Falls frequently FTT (failure to thrive) in adult Chronic anemia Compression fracture of T6 vertebra Compression fracture of T5 vertebra Cancer CPAP (continuous positive airway pressure) dependence Sleep apnea Coronary artery disease Myocardial infarct DVT (deep venous thrombosis) Seizures DVT (deep vein thrombosis) in Cardiopulmonary arrest with successful resuscitation Wears dentures Wears glasses Back pain TIA (transient ischemic attack) GERD (gastroesophageal reflux disease) BiPAP (biphasic positive airway pressure) dependence Former smoker On home oxygen therapy Cardiology follow-up encounter Hx of echocardiogram Hx of cardiovascular stress test Essential hypertension MSSA (methicillin susceptible Staphylococcus aureus) pneumonia Restrictive lung disease Chronic narcotic dependence Pulmonary embolism Diastolic dysfunction Syncope and collapse STEPHANIE (obstructive sleep apnea) HLD (hyperlipidemia) Anxiety and depression Morbid obesity Bilateral peripheral pulmonary emboli Hypothyroidism COPD (chronic obstructive pulmonary disease) Home Medications ?Medication ?Instructions ?Recorded ?Last Taken ?Type compr.stocking,thigh,reg,x-lrg #24 ea 01/15/24 Unknown Rx miscellaneous medical supply 1 ea miscellaneous DAILY debility 01/16/24 Unknown Rx #1 ea miscellaneous medical supply 1 ea miscellaneous DAILY #1 ea 04/29/24 Unknown Rx miscellaneous medical supply 1 ea miscellaneous DAILY #1 ea 04/29/24 Unknown Rx rosuvastatin 10 mg tablet 10 mg PO DAILY cholesterol 1 month 06/23/24 Unknown Rx #30 tabs albuterol sulfate 90 mcg/actuation 2 puff inhalation Q6H PRN 06/26/24 Unknown Rx aerosol inhaler shortness of breath or wheezing #8.5 grams miscellaneous medical supply #1 ea 07/08/24 Unknown Rx ondansetron HCl 4 mg tablet 4 mg PO Q8H PRN nausea and 07/08/24 Unknown Rx vomiting #30 tabs furosemide 20 mg tablet 30 mg (1.5 x 20 mg) PO DAILY 07/22/24 Unknown Rx diuretic #45 TABLETS carbidopa 25 mg-levodopa 100 mg 2 tab PO TID #180 tabs 07/23/24 Unknown Rx tablet levetiracetam 750 mg tablet 750 mg PO BID seizures #60 tabs 07/23/24 Unknown Rx miscellaneous medical supply #1 ea 07/29/24 Unknown Rx cholecalciferol (vitamin D3) 1,250 1,250 mcg PO QWEEK supplement 08/12/24 Unknown History mcg (50,000 unit) capsule naloxone 4 mg/actuation nasal spray 1 spray intranasal Q2M PRN opioid 08/12/24 Unknown History overdose sennosides 8.6 mg-docusate sodium 1 tab-cap PO DAILY 08/12/24 Unknown History 50 mg tablet (Senexon-S) acetaminophen 325 mg tablet 650 mg (2 x 325 mg) PO Q4H PRN PRN 08/15/24 Unknown Rx Fever, pain 1-05/01 #0 tabs lorazepam 1 mg tablet 1 mg PO 0100,0700,1300,1900 #0 tabs 08/15/24 Unknown Rx methadone 10 mg tablet 10 mg PO Q8 #0 tabs 08/15/24 Unknown Rx oxycodone 15 mg tablet 15 mg PO Q4H PRN pain 3 days #10 08/15/24 Unknown Rx tabs losartan 100 mg tablet (Cozaar) 100 mg PO DAILY blood pressure #90 08/28/24 Unknown Rx tabs mupirocin 2 % topical ointment 1 applic topical BID #22 grams 08/28/24 Unknown Rx venlafaxine 150 mg 150 mg PO DAILY depression #90 caps 09/17/24 Unknown Rx capsule,extended release 24 hr (Effexor XR) mirtazapine 7.5 mg tablet 7.5 mg PO QHS sleep #30 tabs 09/30/24 Unknown Rx apixaban 5 mg tablet (Eliquis) 5 mg PO BID blood thinner #60 tabs 10/17/24 Unknown Rx omeprazole 20 mg capsule,delayed 20 mg PO DAILY acid reflux #30 caps 10/17/24 Unknown Rx release polyethylene glycol 3350 17 4 g PO DAILY stool softener #119 10/29/24 Unknown Rx gram/dose oral powder (Miralax) grams metoprolol succinate 100 mg 50 mg PO DAILY PRN blood pressure 11/14/24 Unknown History tablet,extended release 24 hr Allergy/AdvReac Type Severity Reaction Status Date / Time aspirin Allergy Hives Verified 11/20/24 10:51 dicyclomine Allergy Itching Verified 11/20/24 10:51 ibuprofen Allergy Hives Verified 11/20/24 10:51 ketorolac tromethamine (From Allergy Angioedema Verified 11/20/24 10:51 Toradol) nut - unspecified Allergy Hives Verified 11/20/24 10:51 Penicillins (PCN) Allergy Hives Verified 11/20/24 10:51 tramadol HCl (From Ultram) Allergy Angioedema Verified 11/20/24 10:51 Family History Brother Myocardial infarction Asthma Mental disorder Psychiatric care Suicide attempt Father Colon cancer Brother Mental disorder Aunt Parkinson disease Sister Breast cancer Cervical cancer Ovarian cancer Sister Cervical cancer Ovarian cancer Mother Cancer leukemia History of blood clots Hypertension Surgical History History of cardiac catheterization History of lumpectomy of left breast History of esophagogastroduodenoscopy (EGD) History of cholecystectomy S/P lumpectomy, left breast History of left breast biopsy History of hysterectomy Hx of appendectomy History of left heart catheterization (LHC) (~04/22/21) Social History household members: family current occupational status: disabled Smoking Status: Former smoker quit date: 01/21/16 pack-years: 32 Electronic Cigarette Use: not used second hand exposure: Yes alcohol intake: never substance use type: does not use do you feel safe at home: No ROS ROS ED ROS Narrative Review of systems positive for left wrist and hand pain worse with movement. Denies other injuries. No hitting of head or loss of consciousness. No neck pain. EXAM Physical Exam Narrative Exam Narrative: GCS 15. ABCs intact. Patient on chronic oxygen. Cardiovascular examination regular rate and rhythm. Lungs clear to auscultation bilaterally. Focused examination of the left wrist and hand shows no evidence of crepitance. There is mild tenderness diffusely on the dorsum of the hand. She is able to move all her fingers. Palpable radial pulse. Range of motion of the left wrist limited secondary to pain. Const Vital Signs: 11/20/24 10:48 Temperature 97 F L Temperature Source Temporal Pulse Rate 92 Respiratory Rate 22 H Blood Pressure 91/81 H Blood Pressure Mean 84 Pulse Ox 96 Oxygen Delivery Method Nasal Cannula Oxygen Flow Rate (L/min) 3 MDM MDM MDM Narrative Medical decision making narrative: The differential diagnosis includes but not limited to left wrist sprain with hand contusion versus fracture of distal radius/wrist versus metacarpal fracture. Based on her clinical examination, I favor more wrist sprain. X-rays were obtained per nursing protocol of the left hand of the left wrist and interpreted by myself independently as no evidence of fracture, no acute process. At this point in time, she will be placed in a Velcro wrist splint and told to continue ice and elevation at home and continue her chronic analgesia in the form of oxycodone. On my independent interpretation of the x-rays of the left wrist, there is no acute fracture. I reviewed the radiology report which confirms my independent interpretation. Additionally, on my independent interpretation of the left hand x-ray, no acute fracture. I reviewed the radiology report as well which confirms my independent interpretation. There is comment on of swelling on the dorsal aspect of the left wrist. I do feel this is more consistent with sprain. At this point in time, she was given a Velcro wrist splint and told to continue ice and elevation at home, and continue her oxycodone that she gets from palliative care. I feel she can be discharged follow-up. Return instructions reviewed. Disposition is discharged home, in stable condition. History & Record Review Discussion w/independent historian: Patient Discharge Plan Triage Chief Complaint: Upper Extremity Injury ED Provider: Callum Knutson Dx/Rx/DC Orders Clinical Impression: Left wrist sprain, Contusion of left hand Instructions: ED Hand Contusion, ED Wrist Sprain Prescriptions: No Action (DME) compr.stocking,thigh,reg,x-lrg Misc See Rx Instructions .Route Qty: 24 0RF Rx Instructions: As directed miscellaneous medical supply Kit 1 ea miscellaneous DAILY Qty: 1 0RF Rx Instructions: Motorized wheelchair levetiracetam 750 mg tablet 750 mg PO BID Qty: 60 6RF carbidopa-levodopa 25-100 mg tablet 2 tab PO TID Qty: 180 6RF losartan [Cozaar] 100 mg tablet 100 mg PO DAILY Qty: 90 0RF mupirocin 2 % ointment 1 applic topical BID Qty: 22 0RF metoprolol succinate 100 mg tablet extended release 24 hr 50 mg PO DAILY PRN (Reason: blood pressure) Patient Comments: TAKE (1) TABLET BY MOUTH ONCE DAILY Rx Instructions: Hold for heart less than 60 or systolic blood pressure less than 100 mmHg. rosuvastatin 10 mg tablet 10 mg PO DAILY 30 Days Qty: 30 2RF sennosides-docusate sodium [Senexon-S] 8.6-50 mg tablet 1 tab-cap PO DAILY Patient Comments: [NO ORIGINAL SIG] cholecalciferol (vitamin D3) 1,250 mcg (50,000 unit) capsule 1,250 mcg PO QWEEK naloxone 4 mg/actuation spray,non-aerosol 1 spray INTRANASAL Q2M PRN (Reason: opioid overdose) Patient Comments: ADMINISTER A SINGLE SPRAY INTRANASALLY INTO ONE NOSTRIL OF VICTIM SUSPECTED OF EXPERIENCING AN OPIOID-RELATED OVERDOSE. CALL 911. REPEAT WITH SECOND DEVICE INTO OTHER NOSTRIL AFTER 2-3 MINUTES IF NO OR MINIMAL RESPONSE. acetaminophen 325 mg Tablet 650 mg PO Q4H PRN PRN (Reason: Fever, pain 1-10/10) Qty: 0 0RF oxycodone 15 mg tablet 15 mg PO Q4H PRN (Reason: pain) 3 Days Qty: 10 0RF methadone 10 mg Tablet 10 mg PO Q8 Qty: 0 0RF lorazepam 1 mg Tablet 1 mg PO 0100,0700,1300,1900 Qty: 0 0RF miscellaneous medical supply Misc 1 ea miscellaneous DAILY Qty: 1 0RF Rx Instructions: Hospital Bed miscellaneous medical supply Misc 1 ea miscellaneous DAILY Qty: 1 0RF Rx Instructions: lift chair albuterol sulfate 90 mcg/actuation HFA aerosol inhaler 2 puff inhalation Q6H PRN (Reason: shortness of breath or wheezing) Qty: 8.5 0RF ondansetron HCl 4 mg tablet 4 mg PO Q8H PRN (Reason: nausea and vomiting) Qty: 30 1RF (DME) miscellaneous medical supply Misc See Rx Instructions .Route Qty: 1 0RF Rx Instructions: As directed furosemide 20 mg tablet 30 mg PO DAILY Qty: 45 1RF (DME) miscellaneous medical supply Misc See Rx Instructions .Route Qty: 1 0RF Rx Instructions: As directed venlafaxine [Effexor XR] 150 mg capsule,extended release 24hr 150 mg PO DAILY Qty: 90 0RF mirtazapine 7.5 mg tablet 7.5 mg PO QHS Qty: 30 3RF Eliquis 5 mg tablet 5 mg PO BID Qty: 60 3RF omeprazole 20 mg capsule,delayed release(DR/EC) 20 mg PO DAILY Qty: 30 3RF polyethylene glycol 3350 [Miralax] 17 gram/dose powder 4 g PO DAILY Qty: 119 0RF Primary Care Provider: Ysabel Ruffin Referrals: Ysabel Ruffin MD [Primary Care Provider] - 1 Week if not improving Activity Restrictions/Additional Instructions: Continue your oxycodone for analgesia. Wear your splint for the next week, you may remove it for bathing or sleeping if needed. Continue ice and elevation of your left wrist and hand when possible. Print Language: Guamanian Disposition Disposition: Home, Self Care
[2024-11-20 11:48] VITALS: BP 126/77; PULSE 81; RESP 18; TEMP 36.9; O2SAT 94
== END 2024-11-20 12:02 | disposition home or self-care (01) ==
PROVIDERS: Emergency Provider Emergency Medicine; PCP Internal Medicine; Visit Provider Emergency Medicine
DX: S63.92XA Sprain of unspecified part of left wrist and hand, initial encounter (principal); G20.A1 Parkinson's disease without dyskinesia, without mention of fluctuations; I11.0 Hypertensive heart disease with heart failure; I50.32 Chronic diastolic (congestive) heart failure; J44.9 Chronic obstructive pulmonary disease, unspecified; S60.222A Contusion of left hand, initial encounter; W01.0XXA Fall on same level from slipping, tripping and stumbling without subsequent striking against object, initial encounter; G89.29 Other chronic pain; Y93.K1 Activity, walking an animal; E78.5 Hyperlipidemia, unspecified; I25.10 Atherosclerotic heart disease of native coronary artery without angina pectoris; Z79.01 Long term (current) use of anticoagulants; Z86.73 Personal history of transient ischemic attack (TIA), and cerebral infarction without residual deficits; Z87.891 Personal history of nicotine dependence
CPT/HCPCS: 73110; 73130; 99282

== ENCOUNTER → 2024-12-29 | Outpatient (CLI) | payer MEDICAID, SELFPAY ==
[2024-12-29 10:18] LABS: Mucous, Urine 0 SEEN /hpf (<or=2+); Red Blood Cells-Urine 0 SEEN /hpf (0-5)
[2024-12-29 12:12] LABS: Absolute Lymphocyte Count 1.75 X10^3/uL (0.83-4.51); Absolute Neutrophil Count 3.4 X10^3/uL (2.0-7.7); Basophil# 0.04 X10^3/uL; Basophil% 0.7 % (0-1); Eosinophils% 3.5 % (0-5); Hematocrit 28.4 % (37-47); Hemoglobin 8.2 g/dL (12.0-15.0); Lymphocyte # 1.75 X10^3/ul (0.83-4.51); Lymphocyte % 30.2 % (19-41); Mean Corp Hgb Conc 28.9 g/dL (32-36); Mean Corpuscular Hgb 24.2 pg (27.0-32.0); Mean Corpuscular Volume 83.8 fL (81-99); Mean Platelet Vol. 11.1 fl (6.2-12.0); Monocyte# 0.43 X10^3/uL; Monocyte% 7.4 % (0-10); NRBC Flagged by Analyzer 0 % (0-5); Neutrophil # 3.35 X10^3/uL (2.7-7.7); Neutrophil % 57.9 % (47-70); Platelet Count 244 K/mm3 (150-450); RBC Distribution Width CV 14.6 % (11.6-14.6); RBC Distribution Width SD 44.8 fl (35.1-43.9); Red Blood Count 3.39 M/mm3 (4.2-5.4); White Blood Count 5.8 K/mm3 (4.4-11.0)
[2024-12-29 12:15] LABS: Color, Urine Yellow (Yellow); Glucose, Dipstick Normal (Normal); Ketone-Dipstick Negative (Negative); Leukocyte Esterase-Dipstick 500 /ul (Negative); Nitrite-Dipstick Positive (Negative); Occult Blood-Urine 25 /ul (Negative); Protein-Dipstick 15 mg/dl (Negative); Urine Bilirubin Dipstick Negative (Negative); Urine Clarity Sl. Cloudy (Clear); Urine Urobilinogen Normal (Normal)
[2024-12-29 12:23] LABS: Bacteria 3+ /hpf (None Seen); Squamous Epithelial Cells - UA 0-5 SEEN /hpf (5-10)
[2024-12-29 12:24] LABS: White Blood Cells 25-50 SEEN /hpf (0-5)
[2024-12-29 12:26] LABS: Transitional Epithelial - Ur 0-5 SEEN /hpf (0-5)
[2024-12-29 12:50] LABS: Ammonia 36.3 umol/L (11-51)
[2024-12-29 13:13] LABS: Vitamin D,25 Hydroxy 13.4 ng/mL (30-100)
[2024-12-29 13:14] LABS: ALB/GLOB Ratio 1.2 RATIO (0.9-2.4); AST(SGOT) 36 U/L (<=31); Alanine Aminotransfer ALT/SGPT 9 U/L (<=34); Albumin, Serum 3.8 g/dL (3.5-5.0); Alkaline Phosphatase 106 U/L (35-104); Anion Gap 9 (5-15); BUN 17 mg/dL (4-19); BUN/Creat Ratio 20.8 RATIO (10-20); Calcium,Total 9.2 mg/dL (7.6-11.0); Chloride 101 mmol/L (98-108); Creatinine, Serum 0.83 mg/dL (0.70-1.20); EST Glomerular Filtration Rate 82 (>60); Globulin 3.3 g/dL (2.2-4.2); Glucose 116 mg/dL (70-99); Potassium 4.4 mmol/L (3.3-5.1); Protein, Total 7.1 g/dL (5.9-8.4); Sodium Level 139 mmol/L (133-145); Total Bilirubin < 0.15 mg/dL (0.00-1.30)
[2025-01-02 13:08] LABS: KEPPRA (LEVETIRACETAM) 66.1 ug/mL (10.0-40.0)
== END | disposition home or self-care (01) ==
LOC: BIMLAB 09:46
PROVIDERS: Psychiatry & Neurology Neurology; PCP Internal Medicine; Referring Provider Internal Medicine; Visit Provider Internal Medicine
DX: E03.9 Hypothyroidism, unspecified (principal); G40.909 Epilepsy, unspecified, not intractable, without status epilepticus; R31.9 Hematuria, unspecified; E55.9 Vitamin D deficiency, unspecified; G62.9 Polyneuropathy, unspecified
CPT/HCPCS: 36415; 80053; 80177; 81001; 82140; 82306; 84443; 85025; 86335; 87077; 87086; 87088; 87186

== ENCOUNTER → 2025-01-08 | Outpatient (CLI) | payer MEDICAID, SELFPAY ==
--- NOTE | 2025-01-08 15:24 | US_ITS ---
PROCEDURE: KIDNEY AND BLADDER 01/08/2025 REASON FOR EXAM: HEMATURIA/FALL TECHNIQUE: KIDNEY AND BLADDER COMPARISON: 08/12/2024 FINDINGS: Right kidney measures 10.3 x 5.1 x 4.3 cm. Cortex measures 1.4 cm. Superior pole cyst measuring 2.4 x 1.9 x 1.8 cm is noted. No hydronephrosis. No stones. Left kidney measures 12.5 x 5.5 x 5.7 cm. Cortex measures 1.9 cm. Medial pole cyst measuring 3.6 x 3.1 x 2.8 cm is noted. Urinary bladder distended volume is 19.7 cc. Wall measures 6 mm. Urinary bladder is under distended. Jets are not visualized US/Kidney and Bladder IMPRESSION: Bilateral renal simple cysts. No interval changes Under filled urinary bladder. Reading Location: [place] [id number]
== END | disposition home or self-care (01) ==
LOC: US 15:23
PROVIDERS: PCP Internal Medicine; Referring Provider Internal Medicine; Visit Provider Internal Medicine
DX: R31.9 Hematuria, unspecified (principal)
CPT/HCPCS: 76770

== ENCOUNTER 2025-03-08 15:51 | Inpatient (IN) | payer MEDICAID, SELFPAY ==
[2025-03-08] VITALS (20 sets, daily range): BP systolic 75–155; BP diastolic 48–93; PULSE 90–103; RESP 10–94; TEMP 36.6–37.7; O2SAT 16–100; BMI 47.6; BMI 53.8
--- NOTE | 2025-03-08 16:00 | EKG12_ITS ---
Test Reason : Blood Pressure : */* mmHG Vent. Rate : 94 BPM Atrial Rate : 94 BPM P-R Int : 194 ms QRS Dur : 104 ms QT Int : 386 ms P-R-T Axes : 43 -2 30 degrees QTcB Int : 482 ms Normal sinus rhythm Inferior infarct , age undetermined QTcB >= 480 msec Abnormal ECG Confirmed by TOBY BATISTA, CHARLENE ([id number]), organic preparation analyst SAUMYA PERAZA ([id number]) on 03/10/2025 6:10:54 AM Referred By: Confirmed By: CHARLENE LUIS MD
--- NOTE | 2025-03-08 16:02 | EDS_ITS ---
HPI History of Present Illness Chief Complaint: Headache Informant: patient and EMS Narrative Narrative: Presents by EMS from home this report concerns for unresponsiveness. EMS arrival she is awake. She lives with her brother and sister. History of Parkinson's syndrome she states mostly wheelchair and walker use. Reports feeling well yesterday however did have productive cough along with dysuria. Today morning nontraumatic headache and neck pain. No fevers states she feels cold. Chronic oxygenation on 3 L for CHF and COPD. She states she is with palliative care she is on oxycodone for Parkinson's pain. She is on Eliquis for history of pulmonary embolism. Denies chest or abdominal pain. [facility] Medical History H/O long-term (current) use of anticoagulants Falls frequently FTT (failure to thrive) in adult Chronic anemia Compression fracture of T6 vertebra Compression fracture of T5 vertebra Cancer CPAP (continuous positive airway pressure) dependence Sleep apnea Coronary artery disease Myocardial infarct DVT (deep venous thrombosis) Seizures DVT (deep vein thrombosis) in Cardiopulmonary arrest with successful resuscitation Wears dentures Wears glasses Back pain TIA (transient ischemic attack) GERD (gastroesophageal reflux disease) BiPAP (biphasic positive airway pressure) dependence Former smoker On home oxygen therapy Cardiology follow-up encounter Hx of echocardiogram Hx of cardiovascular stress test Essential hypertension MSSA (methicillin susceptible Staphylococcus aureus) pneumonia Restrictive lung disease Chronic narcotic dependence Pulmonary embolism Diastolic dysfunction Syncope and collapse STEPHANIE (obstructive sleep apnea) HLD (hyperlipidemia) Anxiety and depression Morbid obesity Bilateral peripheral pulmonary emboli Hypothyroidism COPD (chronic obstructive pulmonary disease) Home Medications ?Medication ?Instructions ?Recorded ?Last Taken ?Type compr.stocking,thigh,reg,x-lrg #24 ea 01/15/24 Unknown Rx miscellaneous medical supply 1 ea miscellaneous DAILY debility 01/16/24 Unknown Rx #1 ea miscellaneous medical supply 1 ea miscellaneous DAILY #1 ea 04/29/24 Unknown Rx miscellaneous medical supply 1 ea miscellaneous DAILY #1 ea 04/29/24 Unknown Rx rosuvastatin 10 mg tablet 10 mg PO DAILY cholesterol 1 month 06/23/24 Unknown Rx #30 tabs albuterol sulfate 90 mcg/actuation 2 puff inhalation Q 6H PRN 06/26/24 Unknown Rx aerosol inhaler shortness of breath or wheez ing #8.5 grams miscellaneous medical supply #1 ea 07/08/24 Unknown Rx ondansetron HCl 4 mg tablet 4 mg PO Q8H PRN nausea and 07/08/24 Unknown Rx vomiting #30 tabs miscellaneous medical supply #1 ea 07/29/24 Unknown Rx naloxone 4 mg/actuation nasal spray 1 spray intranasal Q2M PRN opioid 08/12/24 Unknown History overdose sennosides 8.6 mg-docusate sodium 1 tab-cap PO DAILY 0 08/12/24 Unknown History 50 mg tablet (Senexon-S) acetaminophen 325 mg tablet 650 mg (2 x 325 mg) PO Q4H PRN PRN 08/15/24 Unknown Rx Fever, pain -05/01 #0 tabs lorazepam 1 mg tablet 1 mg PO 0100,0700,1300,1900 #0 tabs 08/15/24 Unknown Rx methadone 10 mg tablet 10 mg PO Q8 #0 tabs 08/15/24 Unknown Rx oxycodone 15 mg tablet 15 mg PO Q4H PRN pain 3 days #10 08/15/24 Unknown Rx tabs mupirocin 2 % topical ointment 1 applic topical BID #2 2 grams 08/28/24 Unknown Rx polyethylene glycol 3350 17 4 g PO DAILY stool softene r #119 10/29/24 Unknown Rx gram/dose oral powder (Miralax) grams metoprolol succinate 100 mg 50 mg PO DAILY PRN blood p ressure 11/14/24 Unknown History tablet,extended release 24 hr furosemide 20 mg tablet 30 mg (1.5 x 20 mg) PO DAILY 12/17/24 Unknown Rx diuretic #45 TABLETS venlafaxine 150 mg 150 mg PO DAILY depression # 90 caps 12/29/24 Unknown Rx capsule,extended release 24 hr (Effexor XR) cholecalciferol (vitamin D3) 1,250 1,250 mcg PO QWEEK supplement #8 12/30/24 Unknown Rx mcg (50,000 unit) capsule caps mirtazapine 7.5 mg tablet 7.5 mg PO QHS sleep #30 tabs 01/06/25 Unknown Rx carbidopa 25 mg-levodopa 100 mg 2 tab PO .QID #240 tab s 01/08/25 Unknown Rx tablet lacosamide 200 mg tablet 200 mg PO BID #60 tabs 01/08 Unknown Rx levetiracetam 750 mg tablet 750 mg PO BID seizures #60 tabs 01/08/25 Unknown Rx apixaban 5 mg tablet (Eliquis) 5 mg PO BID blood thinn er #60 tabs 03/02/25 Unknown Rx losartan 100 mg tablet (Cozaar) 100 mg PO DAILY blood pressure #90 03/05/25 Unknown Rx tabs omeprazole 20 mg capsule,delayed 20 mg PO DAILY acid r eflux #30 caps 03/05/25 Unknown Rx release Allergy/AdvReac Type Severity Reaction Status Date / Time aspirin Allergy Hives Verified 03/08/25 15:55 dicyclomine Allergy Itching Verified 03/08/25 15:55 ibuprofen Allergy Hives Verified 03/08/25 15:55 ketorolac tromethamine (From Allergy Angioedema Verified 03/08/25 15:55 Toradol) nut - unspecified Allergy Hives Verified 03/08/25 15:55 Penicillins (PCN) Allergy Hives Verified 03/08/25 15:55 tramadol HCl (From Ultram) Allergy Angioedema Verified 03/08/25 15:55 Family History Brother Myocardial infarction Asthma Mental disorder Psychiatric care Suicide attempt Father Colon cancer Brother Mental disorder Aunt Parkinson disease Sister Breast cancer Cervical cancer Ovarian cancer Sister Cervical cancer Ovarian cancer Mother Cancer leukemia History of blood clots Hypertension Surgical History History of cardiac catheterization History of lumpectomy of left breast History of esophagogastroduodenoscopy (EGD) History of cholecystectomy S/P lumpectomy, left breast History of left breast biopsy History of hysterectomy Hx of appendectomy History of left heart catheterization (LHC) (~04/22/21) Social History household members: family current occupational status: disabled Smoking Status: Former smoker quit date: 01/21/16 pack-years: 32 Electronic Cigarette Use: not used second hand exposure: Yes alcohol intake: never substance use type: does not use do you feel safe at home: No ROS ROS ED Constitutional Constitutional ED: Denies chills, fever(s) or sweats ENT ENT ED: Denies sore throat Cardiovascular Cardiovascular: Denies chest pain, leg edema, palpitations or racing heartbeat Respiratory/Chest Respiratory/Chest: Reports cough; Denies dyspnea or dyspnea on exertion Gastrointestinal Gastrointestinal: Denies abdominal pain, diarrhea, nausea or vomiting Genitourinary Genitourinary ED: Reports dysuria; Denies hematuria or urinary frequency Musculoskeletal Musculoskeletal: Reports neck pain; Denies back pain or extremity pain Integumentary Denies rash or wounds Neurologic Neurologic: Reports headache(s); Denies paresthesias or weakness EXAM Physical Exam Const Vital Signs: 03/08/25 15:52 03/08/25 16:52 03/08/25 16:55 Temperature 99.9 F H 98.7 F Temperature Source Oral Core Pulse Rate 102 H 96 96 Respiratory Rate 14 12 11 L Respiratory Pattern Blood Pressure 137/82 H 135/87 H 136/78 H Blood Pressure Mean 100 103 97 Pulse Ox 95 100 100 Oxygen Delivery Method Nasal Cannula Nasal Cannula Nasal Cannula Oxygen Flow Rate (L/min) 4 4 Fraction of Inspired Oxygen (FIO2) 03/08/25 17:00 03/08/25 17:59 03/08/25 18:02 Temperature 98.6 F Temperature Source Core Pulse Rate 94 Respiratory Rate 10 L Respiratory Pattern Blood Pressure 136/78 H Blood Pressure Mean 97 Pulse Ox 100 100 Oxygen Delivery Method Nasal Cannula Nasal Cannula Nasal Cannula Oxygen Flow Rate (L/min) 4 4 3 Fraction of Inspired Oxygen (FIO2) 03/08/25 18:03 03/08/25 18:10 03/08/25 18:18 Temperature 98.4 F 98.3 F Temperature Source Core Pulse Rate 99 96 102 H Respiratory Rate 12 14 21 H Respiratory Pattern Blood Pressure 136/75 H 136/75 H Blood Pressure Mean 95 95 Pulse Ox 99 100 97 Oxygen Delivery Method Nasal Cannula Oxygen Flow Rate (L/min) 3 Fraction of Inspired Oxygen (FIO2) 35 03/08/25 18:48 03/08/25 19:41 03/08/25 19:56 Temperature 97.8 F Temperature Source Core Pulse Rate 100 92 95 Respiratory Rate 94 H 13 11 L Respiratory Pattern Blood Pressure 77/48 L Blood Pressure Mean 57 Pulse Ox 16 93 95 Oxygen Delivery Method Bi-pap Oxygen Flow Rate (L/min) Fraction of Inspired Oxygen (FIO2) 35 40 03/08/25 20:00 03/08/25 20:21 03/08/25 20:30 Temperature 97.9 F Temperature Source Core Pulse Rate 90 90 99 Respiratory Rate 10 L 15 16 Respiratory Pattern Normal Blood Pressure 75/57 L 84/53 L Blood Pressure Mean 63 63 Pulse Ox 92 95 100 Oxygen Delivery Method Room Air Bi-pap Oxygen Flow Rate (L/min) Fraction of Inspired Oxygen (FIO2) 40 50 Positive well nourished and well developed Constitutional Narrative: 4 L nasal cannula, nontoxic no respiratory distress. General Appearance ED: well developed and NAD HEENT HEENT Narrative: Mild dry mucosal membranes. normocephalic and atraumatic Eyes General Eye ED: Yes normal appearance of both eyes Neck full ROM Neck Narrative: Paracervical tenderness no midline tenderness. No meningismus. Chest Wall Chest: Negative for tenderness Resp normal respiratory effort and normal air movement Effort and Inspection: symmetric chest movement; Negative for respiratory distress Cardio regular rate, regular rhythm and no murmurs Peripheral Pulses: pulses 2+ throughout GI normal to inspection, nondistended, normoactive bowel sounds and non-tender Palpation: Negative for guarding or rebound tenderness present Extremity normal to inspection General Extremety ED: Negative for edema or tenderness General Extremity: Negative for edema Neuro oriented x3, CN's II-XII intact bilaterally and no sensory deficits noted Neuro Narrative: No focal deficits. Sensorium / Orientation: awake and alert Skin no rashes or lesions noted and no wounds MDM MDM MDM Narrative Medical decision making narrative: Interventions / MDM: Differential diagnosis: Unresponsive event, COPD exacerbation, UTI, electrolyte abnormalities, dehydration Diagnosis considered but do not suspect: Pneumonia however x-ray negative, intracranial hemorrhage however CT negative. No clinical meningismus. PE however on chronic Eliquis. My EKG interpretation: Sinus rate of 94, no ST changes positive T wave version in lead III nonspecific. QTc 482. Imaging independently reviewed and interpreted by myself: 1 view chest x-ray: No acute process. CT brain/cervical spine: No acute process. Postintubation chest x-ray: ETT tube 3.5 cm above the basilio. Repeat chest x-ray 1 view: ETT tube has been advanced, OG in the stomach region. No pneumothorax. External documents reviewed: Creatinine 0.82 months ago. Test considered but not ordered:N/A ED course: No focal deficits. No meningismus. She is alert and oriented x 3 currently on 4 L nasal cannula. Ports productive cough dysuria since yesterday. Mild dry mucosal membranes with heart failure history. Will give gentle fluids. Sepsis labs ordered she had a temp of 99.9 pulse of 102. Will check CT head and neck also with her symptoms. Chest x-ray ordered. 171: White count 7.8 hemoglobin 9.4 stable from previous. Creatinine 1.46 was 0.82 months ago. IV fluids were given currently. CT head and neck negative. Chest x-ray 1 view interpreted by myself. Awaiting final read. Urine is in the lab this time. Sister currently present reported she had trouble waking her therefore contacted EMS. There is no seizure activity. COVID flu and RSV negative. 173: Urine with signs for infection culture pending. Lactic acid normal. X- ray per radiology hypoventilation however no clear findings. She has had productive sputum along with currently on 4 L oxygen will cover with Rocephin and Zithromax with her COPD history. Evaluation of patient's he seems more somnolent. She had a unresponsive event per sister was 5 minutes before she c alled EMS. With clinical dehydration and renal insufficiency I will speak with hospitalist service for admission. 1910: With her somnolence, for hospitalist will obtain ABG with her sleep apnea history. This returned nearly 90. She is placed on a BiPAP. Required Zofran shortly afterwards tolerating the BiPAP more awake currently. She was monitored. 1950: Per hospitalist after her check on the patient she is more somnolent repeat ABG was ordered. Results her ABG worsening hypercapnia PCO2 of 98 up from 90. She is full code. I did discuss with the patient for intubation. This was relayed to hospice Dr. Covington who is covering now for the intubation. Noted pressures 70s and 80s her lactic acid was less than 1, she is ordered for 1 L of normal saline. 2030: Intubation performed by hospitalist. Post chest x-ray ordered down here and will start fentanyl drip ordered as her pressures are in the 80s. Re-evaluation: Guarded Disposition discussed with patient/family/significant other: Patient and family Case discussed with consulting clinician: Hospitalist This note was generated with [employer] dictation software. It may contain incorrect words, spelling, and punctuation that were not noted in checking the note before signing. Lab Data Attestation: I reviewed the patient's lab results. Labs: Laboratory Results - last 24 hr 03/08/25 03/08/25 16:00 16:50 WBC 7.8 RBC 3.88 L Hgb 9.4 L Hct 32.1 L MCV 82.7 MCH 24.2 L MCHC 29.3 L RDW Std Deviation 43.2 RDW Coeff of Immanuel 14.3 Plt Count 223 MPV 10.6 Immature Gran % (Auto) 0.300 Neut % (Auto) 66.4 Lymph % (Auto) 25.5 Hardin % (Auto) 5.4 Eos % (Auto) 1.9 Baso % (Auto) 0.5 Absolute Neuts (auto) 5.2 Absolute Lymphs (auto) 1.98 Nucleated RBC % 0 PT 13.7 INR 1.0 APTT 31.6 Sodium 135 Potassium 4.7 Chloride 96 L Carbon Dioxide 30.9 Anion Gap 8 BUN 23 H Creatinine 1.46 H Estim Creat Clear Calc 58.38 Est GFR (MDRD) Non-Af 41 L BUN/Creatinine Ratio 15.7 Glucose 115 H Lactic Acid < 1.0 Calcium 9.6 Total Bilirubin 0.30 AST 89 H ALT 13 Alkaline Phosphatase 155 H Total Creatine Kinase 143 Total Protein 8.0 Albumin 4.1 Globulin 4.0 Albumin/Globulin Ratio 1.0 Triglycerides 126 Urine Color Yellow Urine Clarity Sl. Cloudy Urine pH 5.0 Ur Specific [place] 1.025 Urine Protein 15 H Urine Glucose (UA) Normal Urine Ketones Negative Urine Occult Blood 10 H Urine Nitrite Negative Urine Bilirubin Negative Urine Urobilinogen Normal Ur Leukocyte Esterase 100 H Urine RBC 0-5 SEEN Urine WBC 10-25 SEEN Ur Squamous Epith Cells 0-5 SEEN Urine Bacteria 4+ Urine Mucus 0 SEEN ABG Data ABG results: ABG 03/08/25 03/08/25 18:02 20:00 Specimen Type ART ART Sample Site R Radial L Radial pH 7.18 L* 7.10 L* Bicarbonate Actual 33.5 H 30.9 H Total CO2 36 34 Base Excess 5 H 1 O2 Saturation 95 86 L O2 % 4.0 40.0 ABG pCO2 89.8 H* 98.6 H* ABG pO2 98 72 L Олег Test Positive Positive Respiration Rate 12 O2 Delivery Device Cannula BiPAP Vent Mode Not entered avaps Tidal Volume 500.0 POC PEEP 10 Crit Call To/Read Back Yes Yes Blood Gas Notified Whom adrienne Blood Gas Notified Time 20:01:26 Radiography Diagnostic Testing: Clinical Impression(s) from Imaging Studies Brain CT 03/08/25 16:21 IMPRESSION: No acute abnormality Reading Location: [facility] Cervical Spine CT 03/08/25 16:21 IMPRESSION: Negative for fracture Reading Location: [facility] Chest X-Ray 03/08/25 16:28 IMPRESSION: Suboptimal inspiration. No evidence of acute cardiopulmonary disease. Reading Location: [facility] Chest X-Ray 03/08/25 20:38 IMPRESSION: Mild cardiomegaly with diffuse pulmonary vascular congestion. Scattered left lung base opacities. Reading Location: [facility] Critical Care Time Critical Care Time: Yes Critical care time (excluding procedures): 30-74 minutes, Discussing w/Patient &/or Family/Building Custodial Supervisor, Discussing w/Consultants, Arranging Admission or Transfer, Performing Direct Patient Care at Bedside and - (45 minutes) Discharge Plan Dx/Rx/DC Orders Clinical Impression: COPD exacerbation, UTI (urinary tract infection), Unresponsive episode, Dehydration, Acute renal insufficiency, Acute hypercapnic respiratory failure Disposition Disposition: Acute Care Hospital [facility] Discharge Date/Time: 03/08/25 21:53
[2025-03-08] MEDS: 0.9% Normal Saline (500mL Bag) 500 ML 999 ML IV (16:13)
[2025-03-08 16:17] LABS: Hematocrit 32.1 % (37-47); Hemoglobin 9.4 g/dL (12.0-15.0); Immature Granulocytes Count 0.020 X10^3/uL (0.0-0.0); Mean Corp Hgb Conc 29.3 g/dL (32-36); Mean Corpuscular Volume 82.7 fL (81-99); Mean Platelet Vol. 10.6 fl (6.2-12.0); NRBC Flagged by Analyzer 0 % (0-5); Platelet Count 223 K/mm3 (150-450); RBC Distribution Width CV 14.3 % (11.6-14.6); RBC Distribution Width SD 43.2 fl (35.1-43.9); Red Blood Count 3.88 M/mm3 (4.2-5.4); White Blood Count 7.8 K/mm3 (4.4-11.0)
--- NOTE | 2025-03-08 16:21 | CT_ITS ---
PROCEDURE: SPINE CERVICAL WITHOUT CONTRAS 03/08/2025 REASON FOR EXAM: PAIN TECHNIQUE: SPINE CERVICAL WITHOUT CONTRAS Coronal and Sagittal reconstruction series were provided. One or more dose reduction techniques were used (e.g., Automated exposure control, adjustment of the mA and/or kV according to patient size, use of iterative reconstruction technique. RADIATION DOSE SUMMARY: CTDlvol: 75 MGy DLP: 1406 mGycm COMPARISON: 08/12/2024 FINDINGS: Normal alignment. Normal vertebral body height. No subluxation. No compression deformity. Normal odontoid process. Intact C1 and C2. Convex right scoliosis. No destructive osseous changes. No soft tissue masses. CT/Spine Cervical without Contras IMPRESSION: Negative for fracture Reading [facility]
--- NOTE | 2025-03-08 16:21 | CT_ITS ---
PROCEDURE: BRAIN/HEAD WITHOUT CONTRAST 03/08/2025 REASON FOR EXAM: HEADACHE TECHNIQUE: BRAIN/HEAD WITHOUT CONTRAST Coronal and Sagittal reconstruction series were provided. One or more dose reduction techniques were used (e.g., Automated exposure control, adjustment of the mA and/or kV according to patient size, use of iterative reconstruction technique. RADIATION DOSE SUMMARY: CTDlvol: 75 mGy DLP: 1406 mGycm COMPARISON: 11/14/2024 FINDINGS: No intracranial mass, hemorrhage or edema. No hydrocephalus. Sinuses are clear. CT/Brain/Head without Contrast IMPRESSION: No acute abnormality Reading [facility]
--- OUTSIDE RECORDS SUMMARY | 2025-03-08 16:24 | XMS RPT_ITS | CCD ---
Author Organization [facility] Care Team Providers Care Prep Cook Name Role Phone Alba Cedeno Unavailable Unavailable Get Christianson DO Unavailable Brianna Campo Unavailable Unavailable Kee Bagley MD Unavailable Ryanne STEWART, Caitlyn Boggs Unavailable [employer] MANAGER EMPLOYMENT, Alba Amy Unavailable Unavaila ble Yensho MANAGER EMPLOYMENT, Latoya A Unavailable Unavailab Yolanda Aguilar Unavailable Unavailable NEELIMAJULIAN Unavailable Unavailable NEELIMAJULIAN Unavailable Unavailable Yensho MANAGER EMPLOYMENT, Latoya A Unavailable Unavailab le [employer]ukes MANAGER EMPLOYMENT, Alba Amy Unavailable Unavaila ble [employer]ukes MANAGER EMPLOYMENT, Alba Amy Unavailable Unavaila ble Brianna Campo Y Unavailable Unavailable Brianna Campo Unavailable Unavailable Ryanne STEWART, Caitlyn Boggs Unavailable Alba Cedeno Unavailable Unavailable Alvarez Montanez MD Primary Care Provider Rajani Stewart Unavailable Mj BATISTA MD, Daesung Unavailable Demario STEWART, Juan Summers Unavailable Unavailabl e Dr. Alvarez Montanez Primary Care Provider Dr. Geovani Hilliard Emergency Provider Dr. Quinn Ocampo Admit Provider Dr. Quinn Ocampo Attending Provider Dr. Quinn Ocampo Other Provider Dr. Elian Medina Attending Provider Dr. George Mckeon Referring Provider Dr. George Mckeon Attending Provider Dr. George Mckeon Other Provider Dr. Ajay Millard Attending Provider Juan Antonio, Dr. Romero Referring Provider Juan Antonio, Dr. Romero Attending Provider Juan Antonio, Dr. Romero Other Provider Freeman, Dr. Moss Referring Provider Dr. Alvarez Montanez Referring Provider Phylicia BOOM CAT OPERATOR, BOOM CAT OPERATOR-C Carline Summers Attending Provider Layla BOOM CAT OPERATOR, BOOM CAT OPERATOR-C Rhea Attending Provider Dr. Chapincito Castro Attending Provider Dr. Alvarez Montanez Primary Care Provider Dr. Ajay Millard Attending Provider Nas Boogie DO Primary Care Provider Dr. Alvarez Montanez Primary Care Provider Dr. Alvarez Montanez Referring Provider Phylicia BOOM CAT OPERATOR, BOOM CAT OPERATOR-C Carline Summers Attending Provider Dr. Alvarez Montanez Primary Care Provider Dr. Alvarez Montanez Referring Provider Dr. Rubi Mas Emergency Provider Dr. Aleksandra Hurley Admit Provider Dr. Aleksandra Hurley Other Provider Dr. Nick Romano Attending Provider Juan Antonio, Dr. Romero Other Provider Imani Geiger MD Primary Care Provider Dr. Alvarez Montanez Primary Care Provider Dr. Alvarez Montanez Referring Provider Tarik BATISTA, Alvarez Graf Primary Care Provider Rajani Stewart Unavailable Mj BATISTA MD, Daesung Unavailable Demario STEWART, Juan Summers Unavailable Unavailabl e Dr. Ysabel Ruffin Primary Care Provider Dr. Ysabel Ruffin Attending Provider [phone] Fely BATISTA, Imani Primary Care Provider Dr. Alvarez Montanez Referring Provider Dr. Ysabel Ruffin Primary Care Provider Dr. Ysabel Ruffin Attending Provider [phone] Dr. Ysabel Ruffin Referring Provider [phone] Dr. Sravan Acevedo Emergency Provider Dr. Kee Mayes Admit Provider Dr. Kee Mayes Attending Provider Dr. Kee Mayes Other Provider Alvarez Montanez MD Primary Care Provider Rajani Stewart Unavailable Mj BATISTA MD, Daesung Unavailable Demario Martinez RN Unavailable Unavailabl e PROVIDER, UNKNOWN Attending Unavailable PANESAR, NOORDEEP Primary Care Unavailable PATIENT, SELF Referring Unavailable PROVIDER, UNKNOWN Admitting Unavailable PROVIDER, UNKNOWN Attending Unavailable PANESAR, NOORDEEP Primary Care Unavailable PATIENT, SELF Referring Unavailable PROVIDER, UNKNOWN Admitting Unavailable PROVIDER, UNKNOWN Attending Unavailable NAS BOOGIE Primary Care Unavailable PATIENT, SELF Referring Unavailable PROVIDER, UNKNOWN Admitting Unavailable PROVIDER, UNKNOWN Attending Unavailable PROVIDER, UNKNOWN Admitting Unavailable PANESAR, NOORDEEP Primary Care Unavailable PATIENT, SELF Referring Unavailable Demario Martinez RN Unavailable Unavailabl e Dr. Marilee Yu Primary Care Provider Unavaila Dr. Marilee Segundo Referring Provider Unavailable Dr. Ysabel Ruffin Attending Provider Mj BATISTA, Daesung Unavailable Tarik BATISTA, Alvarez Graf Primary Care Provider ALVAREZ MONTANEZ Primary Care Unavailable ALVAREZ MONTANEZ Primary Care Unavailable Fely BATISTA, [facility] Primary Care Provider Laly BATISTA, Dr. Grady Primary Care Provider Bg AUGUST, Dr. Bonilla Emergency Provider Xavi BATISTA, Dr. Aleksandra Boggs Admit Provider Xavi BATISTA, Dr. Aleksandra Boggs Other Provider Juan Antonio BATISTA, Dr. Romero Other Provider Cassi BATISTA, Dr. Munoz Attending Provider Unavaila ble Xavi BATISTA, Dr. Aleksandra Boggs Attending Provider Juan Antonio BATISTA, Dr. Romero Attending Provider Cassi BATISTA, Dr. Munoz Other Provider Unavailable Laly BATISTA, Dr. Grady Referring Provider Oli Fu Attending Provider Dr. Luke Tirado MD Attending Provider [phone] Dr. Luke Tirado MD Referring Provider [phone] Callum Knutson MD Attending Provider Callum Knutson MD Emergency Provider Dr. Ysabel Ruffin MD Primary Care Provider [phone] Dr. Luke Tirado MD Attending Provider [phone] Dr. Luke Tirado MD Referring Provider [phone] Oli Fu Attending Provider Dr. Ysabel Ruffin MD Referring Provider Callum Knutson MD Attending Provider Callum Knutson MD Emergency Provider Dr. Ysabel Ruffin MD Attending Provider Laly BATISTA, Dr. Grady Primary Care Provider Gloria BATISTA, Dr. Beckham Attending Provider [phone] Rose, Ysabel Primary Care Unavailable White, Aleksandra L Consulting Unavailable White, Aleksandra L Attending Unavailable White, Aleksandra L Admitting Unavailable Rose, Ysabel Primary Care Unavailable White, Aleksandra L Consulting Unavailable Juan Antonio, Nikc Attending Unavailable White, Aleksandra L Admitting Unavailable Juan Antonio, Nick Consulting Unavailable Alexander Ye Attending Unavailable Alexander Ye Consulting Unavailable Lazarus, Crow Admitting Unavailable Crow Qiu Attending Unavailable Mosteller, Crow Consulting Unavailable Laly, Ysabel Primary Care Unavailable Mosteller, Crow Admitting Unavailable Rose, Ysabel Primary Care Unavailable Mostmichael, Crow Consulting Unavailable Juan Antonio, Nick Attending Unavailable Wilian Rodriguez Consulting Unavailable Adeli, Amir Consulting Unavailable Hinduja, Donya Consulting Unavailable Joni, Mercedes Consulting Unavailable Zha, Oralia Consulting Unavailable Sandra, David Consulting Unavailable Papito, Tammy Consulting Unavailable BittarColton Consulting Unavailable Manav Davis Consulting Unavailable Trevor Jade Consulting Unavailable Ananya Downey Consulting Unavailable Oli Greco Consulting Unavailable Katherin Amaral Consulting Unavailable Kaiden Ferrari Consulting Unavailable Roxy Méndezzat Consulting UnavailSravan Pitt Consulting Unavailable Cornejo, Rami Consulting Unavailable Jose Juan Blake Consulting Unavailable Ophelia Barker Consulting Unavailable Destiny Ennis Consulting Unavailable George Mckeon Consulting Unavailable Laly, Ysabel Primary Care Unavailable Oleghe, Efewongbe Referring Unavailable Oleghe, Efewongbe Attending Unavailable Laly, Ysabel Primary Care Unavailable Ferullo, Chloé Referring Unavailable Rona Zepedaily Attending Unavailable Laly, Ysabel Attending Unavailable Rose, Ysabel Primary Care Unavailable Laly, Ysabel Referring Unavailable Laly, Ysbael Referring Unavailable Laly, Ysabel Attending Unavailable Laly, Ysabel Primary Care Unavailable Juan Antonio, Nick Attending Unavailable Wilian Rodriguez Consulting Unavailable Adeli, Amir Consulting Unavailable Hinduja, Donya Consulting Unavailable Jnoi, Mercedes Consulting Unavailable Zha, Oralia Consulting Unavailable Sandra, David Consulting Unavailable Papito, Tammy Consulting Unavailable Colton Chavez Consulting Unavailable Manav Davis Consulting Unavailable Trevor Jade Consulting Unavailable Ananya Downey Consulting Unavailable Oli Greco Consulting Unavailable Katherin Amaral Consulting Unavailable Kaiden Ferrari Consulting Unavailable Dev, Roxy Phill Consulting UnavailSravan Pitt Consulting Unavailable Mathew Cornejo Consulting Unavailable Jose Juan Blake Consulting Unavailable Ophelia Barker Consulting Unavailable Destiny Ennis Consulting Unavailable George Mckeon Consulting Unavailable Juan Antonio, Nick Consulting Unavailable Rose, Ysabel Primary Care Unavailable Laly, Ysabel Referring Unavailable Sofia Carter Attending Unavailable Laly, Ysabel Attending Unavailable Laly, Ysabel Primary Care Unavailable Laly, Ysabel Primary Care Unavailable Viviana Avendano Attending Unavailabl e Laly, Ysabel Primary Care Unavailable Chloé Zepeda Attending Unavailable Rose, Ysabel Attending Unavailable Rose, Ysabel Primary Care Unavailable Rose, Ysabel Referring Unavailable Chapincito Castro Attending Unavailable Laly, Ysabel Referring Unavailable Laly, Ysabel Primary Care Unavailable Laly, Ysabel Primary Care Unavailable Rose, Ysabel Referring Unavailable Chapincito Castro Attending Unavailable Laly, Ysabel Primary Care Unavailable Callum Knutson Attending Unavailable Rose, Ysabel Primary Care Unavailable Rose, Ysabel Attending Unavailable Rose, Ysabel Primary Care Unavailable Oli Fu Attending Unavailable Rose, Ysabel Primary Care Unavailable White, Aleksandra L Consulting Unavailable White, Aleksandra L Admitting Unavailable Alexander Ye Attending Unavailable Juan Antonio, Nick Consulting Unavailable Rose, Ysabel Primary Care Unavailable Laly, Ysabel Referring Unavailable Oli Fu Attending Unavailable Laly, Ysabel Primary Care Unavailable Laly, Ysabel Referring Unavailable Oli Fu Attending Unavailable Rose, Ysabel Attending Unavailable Laly, Ysabel Referring Unavailable Rose, Ysabel Primary Care Unavailable Allergies Allergy Classification Reported Allergen(s) Allergy Type Date of Onset Reaction(s) Facility (19 sources) dicyclomine drug allergy 10-11-19 17 itching [facility] Work Phone: (20 sources) ibuprofen drug allergy 10-11-19 17 hives [facility] Work Phone: (20 sources) ketorolac drug allergy 04-03-20 12 Hives [facility] Work Phone: (19 sources) meperidine drug allergy 10-11-19 17 [facility] Work Phone: (19 sources) nitroglycerin drug allergy 10-11-19 17 headache and tongue swelling [facility] Work Phone: (19 sources) penicillin v drug allergy 10-11-19 17 hives [facility] Work Phone: (20 sources) traMADol drug allergy 10-11-19 17 andioedema, Angioedema [facility] Work Phone: (19 sources) ASPIR-81 drug allergy 10-11-19 17 hives [facility] Work Phone: (3 sources) ketorolac Drug Allergy 10-11-19 17 angioedema [facility] Work Phone: (20 sources) aspirin; Translations: [ASPIRIN] Drug Allergy 08-24-19 14 Swelling [facility] Repository (20 sources) ketorolac; Translations: [KETOROLAC TROMETHAMINE] Drug Allergy 04-03-20 12 AOF, Angioedema [facility] Repository (20 sources) meperidine; Translations: [MEPERIDINE (PF)] Drug Allergy 06-26-20 09 [facility] (20 sources) onion extract; Translations: [ONION] Drug Allergy 11-20-19 13 Anaphylaxis, Hives, Swelling [facility] Repository (20 sources) peach allergenic extract; Translations: [PEACH] Drug Allergy 11-20-19 13 Anaphylaxis [facility] Repository (20 sources) peanut allergenic extract; Translations: [PEANUT] Drug Allergy 11-20-19 13 Anaphylaxis [facility] Repository (20 sources) Penicillins; Translations: [PENICILLINS] Propensity to adverse reactions to drug (disorder) 06-26-20 09 Hives, Swelling [facility] Repository (20 sources) Shellfish; Translations: [SHELLFISH] Propensity to adverse reactions to food (disorder) 11-20-19 13 Anaphylaxis [facility] Rep[facility] (20 sources) traMADol; Translations: [TRAMADOL] Drug Allergy 06-26-20 09 Hives [facility] Rep[facility] (20 sources) FISH; Translations: [FISH] Propensity to adverse reactions to food (disorder) 11-20-19 13 Swelling [facility] (20 sources) Dicyclomine Drug Allergy 10-11-19 22 Itching [facility] (14 sources) Meperidine Drug Allergy 10-11-19 22 seizures [facility] Work Phone: (14 sources) Nitroglycerin Drug Allergy 10-11-19 Angioedema [facility] Work Phone: (20 sources) nut - unspecified; Translations: [nut - unspecified] Allergy to substance 10-11-19 22 Hives [facility] (11 sources) Fish Oils; Translations: [FISH OIL] Drug Allergy 10-12-19 16 Swelling [facility] Work Phone: (11 sources) Meperidine; Translations: [MEPERIDINE] Drug Allergy 02-10-[address] [facility] (11 sources) Naproxen; Translations: [NAPROXEN] Drug Allergy 07-29-19 16 [facility]: (2 sources) peach allergenic extract; Translations: [PRUNUS PERSICA] Drug Allergy 10-12-19 16 [facility] (2 sources) peanut oil; Translations: [PEANUT OIL] Drug Allergy 10-12-19 16 [facility] (11 sources) Shellfish; Translations: [SHELLFISH ALLERGY] Propensity to adverse reactions to drug 10-12-19 16 [facility] (9 sources) [place] Propensity to adverse reactions to drug 10-12-19 16 [facility] (9 sources) Peanut oil Propensity to adverse reactions to drug 10-12-19 16 [facility] (1 source) Dicyclomine Drug Allergy 01-09-20 [facility] Repository (1 source) Ibuprofen Drug Allergy 01-09-20 [facility] Repository (1 source) traMADol Drug Allergy 01-09-20 [facility] Repository Medications Current Medications Medication Drug Class(es) Dates Sig (Normalized) Sig (Original) acetaminophen 325 mg oral tablet (20 sources) Start: 08-15-2024 take 2 tablets by mouth every four hours as needed for pain Acetaminophen 325 mg Tablet Active 650 mg PO EVERY 4 HOURS NEEDED as needed for Fever, pain 0 August 15, 2024 1:00am take 2 tablets by mo uth every eight hours as needed acetaminophen (TYLENOL EXTRA STRENGTH) 5 00 mg tablet Take 1,000 mg by mouth every 8 hours as needed. 0 Active Comment on above: Take 1,000 mg by epifanio every 8 hours as needed. [id number] 200 actuat albuterol 0.09 mg/actuat metered dose inhaler (20 sources) beta2-Adrenergic Agonist Start: 05-13-2024 End: 06-26-2024 Albuterol Sulfate 90 mcg/actuation HFA aerosol inhaler Active 2 NMA INHALATION EVERY 6 HOURS as needed for shortness of breath or wheezing 8.5 June 26, 2024 10:09am Start: 05-13-2024 End: 06-26-2024 Start: 08-24-2022 take 2 puff(s) by in halation twice daily as needed Albuterol Active 90 MCG INHALATION TWICE DAILY NEEDED August 24, 2022 12:00am 2 puff PRN twice daily as needed for SOB Start: 08-24-2022 take 2 puff(s) by in halation twice daily as needed Albuterol Active MCG INHALATION August 24, 2022 1:00am 2 puff PRN twice daily as needed for SOB Start: 02-17-2022 End: 06-27-2022 take 2 puff(s) by mouth three times daily as needed for cough albuterol HFA (VENTOLIN HFA) 90 mcg/actuation inhaler Indications: Asthma with chronic obstructive pulmonary disease (COPD) (HCC) INHALE 2 PUFFS BY MOUTH THREE TIMES A DAY NEEDED FOR SHORTNESS OF BREATH/WHEEZING/COUGH 18 g 3 06/28/2022 Active Start: 08-22-2021 End: 10-24-2021 take 2 puff(s) by mouth three times daily as needed for cough albuterol HFA (VENTOLIN HFA) 90 mcg/actuation inhaler Indications: Asthma with chronic obstructive pulmonary disease (COPD) (HCC) INHALE 2 PUFFS BY MOUTH THREE TIMES A DAY NEEDED FOR SHORTNESS OF BREATH/WHEEZING/COUGH 18 g 3 10/24/2021 Active Start: 08-01-2017 End: 03-02-2021 take 2.5 mg by inhalation every four hours Albuterol Sulfate 2.5 mg /3 mL (0.083 %) solution for nebulization Discontinued 2.5 mg INHALATION Q4H August 01, 2017 1:00am March 02, 2021 5:42pm Start: 08-01-2017 End: 08-24-2022 Albuterol Sulfate (Proair Hf a) 90 mcg/actuation HFA aerosol inhaler Discontinued 2 NMA INHALATION Q4H as needed for shortness of breath or wheezing August 01, 2017 1:00am August 24, 2022 5:14pm Start: 08-01-2017 End: 03-02-2021 Start: 08-01-2017 End: 08-24-2022 Start: 08-01-2017 End: 08-24-2022 take 1 puff(s) by inhalation every four hours Albuterol Sulfate (Proair Hfa) 90 mcg/actuation HFA aerosol inhaler Discontinued 2 PUFF INHALATION Q4H August 01, 2017 12:00am August 24, 2022 4:14pm Start: 03-29-2017 ALBUTEROL SULF ATE (2.5 MG/3ML) 0.083% NEBU 1 unit dose every 4 hours as needed ALBUTEROL SULFATE [id number] Yolanda Skinner Start: 03-29-2017 PROAIR HFA 108 (90 Base) MCG/ACT AERS 2 INH every 4 hours as needed ALBUTEROL SULFATE [id number] Yolanda Skinner Start: 03-29-2017 ALBUTEROL SULF ATE (2.5 MG/3ML) 0.083% NEBU 1 unit dose every 4 hours as needed ALBUTEROL SULFATE [id number] Yolanda Skinner Start: 03-29-2017 PROAIR HFA 108 (90 Base) MCG/ACT AERS 2 INH every 4 hours as needed ALBUTEROL SULFATE [id number] Yolanda Summers Brody Start: 11-24-2013 albuterol (PRO AIR HFA) inhaler 90 mcg/inh Inhale 2 Puffs. 11/24/2013 Active Comment on above: INHALE 2 PUFFS BY [facility] THREE TIMES A DAY NEEDED FOR SHORTNESS OF BREATH/WHEEZING/COUGH albuterol 0.833 mg/ml / ipratropium bromide 0.167 mg/ml inhalation solution (20 sources) Anticholinergic, beta2-Adrenergic Agonist Start: 2021 End: 2021 take 1 dose by inhalation every four hours as needed ipratropium-albut klaudia (DUONEB) 0.5 mg-3 mg(2.5 mg base)/3 mL nebu Indications: Asthma with chronic obstructive pulmonary disease (COPD) ([facility]) INHALE 1 VIAL VIA NEBULIZER EVERY 4 HOURS NEEDED 100 Each 0 06/28/2022 Active Start: 08-22-2021 End: 10-24-2021 take 1 dose by inhalation every four hours as needed ipratropium-albuterol (DUONEB) 0.5 mg-3 mg(2.5 mg base)/3 mL nebu Indications: Asthma with chronic obstructive pulmonary disease (COPD) ([facility]) INHALE 1 VIAL VIA NEBULIZER EVERY 4 HOURS NEEDED 100 Vial 3 10/24/2021 Active Start: 10-06-2016 End: 03-27-2017 Ipratropium-Albuterol 3 ML A mpul.Neb Discontinued 3 mL INHALATION Q4H 50 October 06, 2016 12:00am March 27, 2017 1:17pm for 2 days and then prn for SOB/wheezing. Start: 10-06-2016 End: 03-27-2017 Start: 10-06-2016 End: 03-27-2017 Ipratropium-Albuterol Discon tinued 3 ML INHALATION Q4H 50 October 05, 2016 11:00pm March 27, 2017 12:17pm for 2 days and then prn for SOB/wheezing. Comment on above: INHALE 1 VIAL VIA NE BULIZER EVERY 4 HOURS NEEDED aluminum hydroxide 40 mg/ml / magnesium hydroxide 40 mg/ml / simethicone 4 mg/ml oral suspension (10 sources) Start: 6 take 15 mL by mouth every six hours as needed aluminum & magnesium hydroxide-simethic one (MAALOX REGULAR STRENGTH) 200-200-20 MG/5ML suspension Take 15 mL by mouth every 6 hours as needed for Other. 1 Bottle 3 10/12/2015 Active carbidopa 25 mg / levodopa 100 mg oral tablet (20 sources) Aromatic Amino Acid Decarboxylation Inhibitor, Aromatic Amino Acid Start: Carbidopa-Levodopa 25-100 mg tablet Active 2 {tbl} PO .QID 240 January 08, 2025 8:58am Start: 07-23-2024 End: 01-08-2025 Carbidopa-Levodopa 25-100 mg tablet Discontinued 2 {tbl} PO THREE TIMES A DAY 180 July 23, 2024 1:00am January 08, 2025 9:00am Start: 07-23-2024 Start: 07-02-2023 take 1 tablet by epifanio th at bedtime Carbidopa-Levodopa Active 1 TABLET PO AT BEDTIME July 02, 2023 12:00am Start: 06-05-2022 End: 07-23-2024 take 2 tablets by mouth three times daily, then take 1 tablet by mouth at lunch, then take 2 tablets by mouth at bedtime Carbidopa-Levodopa 50-200 mg tablet extended release Discontinued 0 PO THREE TIMES A DAY 150 June 11, 2024 10:24pm June 26, 2024 1:59pm orally three times a day; take 2 tablets morning, 1 tablet at lunch and 2 tablets at bedtime Start: 06-05-2022 End: 07-23-2024 Carbidopa-Levodopa 50-200 mg tablet extended release Discontinued 1 {tbl} PO AT BEDTIME July 02, 2023 1:00am May 13, 2024 3:43pm Start: 06-05-2022 End: 07-02-2023 take 1 tablet by mouth three times daily Carbidopa-Levodopa Active 2 TABLET PO TWICE A DAY July 02, 2023 12:00am 1 TAB orally three times a day Start: 12-12-2021 End: 06-05-2022 take 1 tablet by mouth once daily, then take 1 tablet by mouth twice daily, then take 1 tablet by mouth three times daily Carbidopa-Levodopa 50-200 mg tablet extended release Discontinued 0 .ROUTE .COMPLEX December 12, 2021 12:00am June 05, 2022 6:29pm Take 1 tablet PO daily for one week then 1 BID for one week then 1 TID thereafter. Start: 12-12-2021 End: 06-05-2022 Start: 12-12-2021 End: 06-05-2022 take 1 tablet by mouth once daily, then take 1 tablet by mouth twice daily, then take 1 tablet by mouth three times daily Carbidopa-Levodopa Discontinued 0 .ROUTE .COMPLEX December 11, 2021 11:00pm June 05, 2022 5:29pm Take 1 tablet PO daily for one week then 1 BID for one week then 1 TID thereafter. Start: 11-22-2021 End: 12-12-2021 Carbidopa-Levodopa (Sinemet) 25-100 mg tablet Discontinued 1 {tbl} PO THREE TIMES A DAY December 08, 2021 3:16pm December 12, 2021 4:15pm Start: 10-31-2021 End: 11-22-2021 take 1 tablet by mouth once daily, then take 1 tablet by mouth twice daily, then take 1 tablet by mouth three times daily Carbidopa-Levodopa (Sinemet) 25-100 mg tablet Discontinued 0 .Route .COMPLEX October 31, 2021 12:00am November 22, 2021 3:04pm Take 1 tab PO once daily x 1 week, then 1 tab PO twice daily x 1 week, then 1 tab PO three times daily thereafter Start: 10-31-2021 End: 12-12-2021 Comment on above: Take 1 tablet by epifanio th three times daily. From Neurologist. cholecalciferol 1.25 mg oral capsule (20 sources) Vitamin D Start: 025 End: 025 take 1 capsule by mouth every week Cholecalciferol (Vitamin D3) 1,250 mcg (50,000 unit) capsule Active 1250 ug PO EVERY WEEK December 30, 2024 10:25am Start: 01-15-2024 End: 06-22-2024 take 1 capsule by mouth every week Cholecalciferol (Vitamin D3) 1,250 mcg (50,000 unit) capsule Discontinued 1250 ug PO EVERY WEEK March 14, 2024 4:54pm June 22, 2024 8:19am Start: 03-11-2015 take 1 capsule by mo [facility] once daily Cholecalciferol (VITAMIN D) 2000 UNITS CAPS Indications: Vitamin D deficiency Take 2,000 Units by mouth daily. 30 Cap 11 03/11/2015 Active clonazePAM 0.5 mg oral tablet (20 sources) Benzodiazepine Start: 08-22-2021 End: 05-10-2022 clonazePAM (KLONOPIN) 0.5 mg tablet Take 1 tablet by mouth twice daily. Per [facility]. 0 08/22/2021 Active Start: 05-09-2021 End: 06-22-2024 take 1 tablet by mouth twice daily Clonazepam 1 mg tablet Discontinued 1 mg PO TWICE A DAY May 09, 2021 12:00am June 22, 2024 8:19am Start: 04-26-2021 End: 04-26-2021 take 0.75 mg by mouth twice daily Clonazepam 0.5 mg Tablet,Disintegrating Discontinued 0.75 mg PO TWICE A DAY April 26, 2021 10:21am April 26, 2021 11:48am Start: 03-15-2021 End: 04-26-2021 take 1 tablet by mouth twice daily Clonazepam 0.5 mg Tablet,Disintegrating Discontinued 0.5 mg PO TWICE A DAY March 15, 2021 12:00am April 26, 2021 10:21am Start: 03-15-2021 End: 04-26-2021 Start: 10-02-2016 End: 03-02-2021 take 1 tablet by mouth twice daily Clonazepam 0.5 MG tablet Discontinued 0.5 mg PO TWICE A DAY October 02, 2016 12:00am March 02, 2021 5:42pm Start: 11-29-2015 End: 09-06-2016 take 1 tablet by mouth twice daily Clonazepam 0.5 MG tablet Discontinued 0.5 mg PO TWICE A DAY November 29, 2015 12:00am September 06, 2016 1:34pm Comment on above: [facility]. COMPOUNDED PRESCRIPTION (20 sources) Start: 03-11-2018 COMPOUNDED PRESCRIPTION Indications: Restrictive lung disease secondary to obesity , Hypoxemia , Asthma with chronic obstructive pulmonary disease (COPD) PORTABLE OXYGEN VIA NASAL CANNULA. 2 LPM FOR USE WITH EXERTION, ACTIVITY. Dx:R09.02; J44.9; J98.4 1 Each 5 03/11/2018 Active Start: 03-11-2018 COMPOUNDED PRE SCRIPTION Indications: Restrictive lung disease secondary to obesity , Hypoxemia , Asthma with chronic obstructive pulmonary disease (COPD) (HCC) PORTABLE OXYGEN VIA NASAL CANNULA. 2 LPM FOR USE WITH EXERTION, ACTIVITY. Dx:R09.02; J44.9; J98.4 1 Each 5 03/11/2018 Active Comment on above: PORTABLE OXYGEN VIA NASAL CANNULA. 2 LPM FOR USE WITH EXERTION, ACTIVITY. Dx:R09.02; J44.9; J98.4 Compr.Stocking,Thigh,Re g,X-Lrg misc (5 sources) Start: 01-15-2024 Compr.Stocking,Thigh,R eg,X-Lrg misc Active 0 .Route January 15, 2024 12:00am As directed docusate sodium 50 mg / sennosides, fdc 8.6 mg oral tablet (6 sources) Start: 08-12-2024 Sennosides-Docusate Sodium (Senexon-S) 8.6-50 mg tablet Active 1 NMA PO DAILY August 12, 2024 1:00am Start: 08-12-2024 60 actuat formoterol fumarate 0.005 mg/actuat / mometasone furoate 0.1 mg/actuat metered dose inhaler (20 sources) Corticosteroid, beta2-Adrenergic Agonist Start: 07-29-2022 take 2 puff(s) by inhalation twice daily mometasone-formoterol (DULERA) 100-5 mcg/actuation inhaler Indications: Asthma with chronic obstructive pulmonary disease (COPD) (HCC) Inhale 2 Puffs as instructed twice daily. 13 g 2 07/29/2022 Active Start: 02-17-2022 End: 07-24-2022 take 2 puff(s) by inhalation twice daily mometasone-formoterol (DULERA) 100-5 mcg/actuation inhaler Indications: Asthma with chronic obstructive pulmonary disease (COPD) (HCC) Inhale 2 Puffs as instructed twice daily. 13 g 0 06/28/2022 07/24/2022 Discontinued Start: 08-22-2021 End: 10-24-2021 take 2 puff(s) by inhalation twice daily mometasone-formoterol (DULERA) 100-5 mcg/actuation inhaler Indications: Asthma with chronic obstructive pulmonary disease (COPD) (HCC) Inhale 2 Puffs as instructed twice daily. 13 g 3 10/24/2021 Active Start: 03-15-2021 take 1 puff(s) by in halation every twelve hours Mometasone-Formoterol (Dulera) 100-5 mcg/actuation Hfa Aerosol Inhaler Active 2 PUFF INHALATION Q12H March 15, 2021 12:00am Start: 10-19-2016 End: 01-02-2017 DULERA 200-5 MCG/ACT AERO 20 06/10/29 MOMETASONE FURO-FORMOTEROL FUM [id number] Yolanda Skinner Start: 10-19-2016 DULERA 200-5 M CG/ACT AERO MOMETASONE FURO-FORMOTEROL FUM [id number] Yolanda Skinner Start: 10-19-2016 End: 01-02-2017 DULERA 200-5 MCG/ACT AERO 20 06/10/29 MOMETASONE FURO-FORMOTEROL FUM [id number] Get Christianson DO Comment on above: Inhale 2 Puffs as in structed twice daily. lacosamide 200 mg oral tablet (3 sources) Anti-epileptic Agent Start: 5 take 1 tablet by mouth twice daily Lacosamide 200 mg tablet Active 200 mg PO TWICE A DAY 60 January 08, 2025 12:00am LORazepam 1 mg oral tablet (20 sources) Benzodiazepine Start: End: Lorazepam 1 mg Tablet Active 1 mg PO 0100,0700,1300,1900 0 August 15, 2024 1:00am Start: 07-17-2022 End: 06-26-2024 Lorazepam (Ativan) 0.5 mg ta blet Discontinued 1 mg PO EVERY 6 HOURS August 24, 2022 1:00am June 26, 2024 1:58pm take one tablet q12hrs routinely and q4hrs prn anxiety Comment on above: From [facility] meloxicam 7.5 mg oral tablet (11 sources) Nonsteroidal Anti-inflammatory Drug Start: 2 take 1 tablet by mouth once daily meloxicam (MOBIC) 7.5 mg tablet Take 7.5 mg by mouth once daily. 0 06/05/2022 Active Comment on above: Take 7.5 mg by mouth once daily. methadone hydrochloride 10 mg oral tablet (15 sources) Opioid Agonist Start: 5 End: 5 take 1 tablet by mouth every eight hours Methadone 10 mg Tablet Active 10 mg PO EVERY 8 HOURS 0 August 15, 2024 Start: 08-24-2022 take 10 mg by mouth twice kaye y Methadone Active 10 MG PO TWICE A DAY August 24, 2022 12:00am Start: 08-24-2022 take 7.5 mg by mouth twice dom ly Methadone Active 7.5 MG PO TWICE A DAY August 24, 2022 1:00am Miscellaneous Medical Supply kit (5 sources) Start: 01-16-2024 Miscellaneous Medical Supply kit Active 1 NMA MC DAILY January 16, 2024 12:00am Motorized wheelchair Miscellaneous Medical Supply misc (20 sources) Start: 07-29-2024 Miscellaneous Medical Supply misc Active 0 .Route 1 July 29, 2024 4:07pm As directed Start: 07-25-2024 End: 07-29-2024 Miscellaneous Medical Supply misc Discontinued 0 .Route 1 July 25, 2024 1:00am July 29, 2024 4:07pm As directed Start: 07-08-2024 Miscellaneous Medical Supply misc Active 0 .Route 1 July 08, 2024 1:00am As directed Start: 04-29-2024 Miscellaneous Medical Supply misc Active 1 NMA MC DAILY April 29, 2024 12:00am Hospital Bed Start: 04-29-2024 Miscellaneous Medical Supply misc Active 1 NMA MC DAILY April 29, 2024 12:00am lift chair mometasone furoate 1 mg/ml topical cream (20 sources) Corticosteroid Start: 04-09-2018 End: 07-29-2022 mometasone (ELOCON) 0.1 % cream APPLY 1 APPLICATION TO AFFECTED AREA ONCE DAILY NEEDED FOR FACIAL RASH. AVOID EYES NOSE MOUTH 45 g 5 04/09/2018 07/29/2022 Discontinued Comment on above: APPLY 1 APPLICATION TO AFFECTED AREA ONCE DAILY NEEDED FOR FACIAL RASH. AVOID EYES NOSE MOUTH mupirocin 0.02 mg/mg topical ointment (6 sources) RNA Synthetase Inhibitor Antibacterial Start: 08-28-2024 Mupirocin 2 % ointment Active 1 NMA TOPICAL TWICE A DAY August 28, 2024 1:00am Naloxone 4 mg/actuation spray,non-aerosol (5 sources) Start: 08-12-2024 Naloxone 4 mg/actuation spray,non-aerosol Active 1 NMA INTRANASAL Q2M as needed for opioid overdose August 12, 2024 1:00am 24 hr nicotine 0.583 mg/hr transdermal system (10 sources) Cholinergic Nicotinic Agonist Start: 08-19-2015 apply 1 dose transdermal route every twenty-four hours nicotine (NICODERM CQ) 14 MG/24HR patch Indications: Tobacco abuse Place 1 Patch on the skin every 24 hours. 30 Patch 3 08/19/2015 Active oxyCODONE hydrochloride 15 mg oral tablet (20 sources) Opioid Agonist Start: 08-12-2024 End: 08-15-2024 take 1 tablet by mouth every four hours as needed for pain Oxycodone 15 mg tablet Active 15 mg PO Q4H as needed for pain 10 August 15, 2024 Start: 08-24-2022 End: 08-12-2024 Oxycodone 10 mg tablet Disco ntinued 15 mg PO Q4H August 24, 2022 1:00am August 13, 2024 12:12am one tab q4hrs routine and q1hr PRN for pain/SOB Start: 08-24-2022 End: 08-12-2024 Start: 04-05-2021 End: 04-22-2021 take 1 capsule by mouth every eight hours as needed for pain Oxycodone 5 mg capsule Discontinued 5 mg PO Q8H as needed for pain (scale score 7-10) 04 26April 05, 2021 April 22, 2021 1:56pm rosuvastatin calcium 10 mg oral tablet (6 sources) HMG-CoA Reductase Inhibitor Start: 06-23-2024 take 1 tablet by mouth once daily Rosuvastatin 10 mg tablet Active 10 mg PO DAILY June 23, 2024 1:00am sennosides, fdc 8.6 mg oral tablet (3 sources) Start: 08-24-2022 take 1 tablet by mouth twice daily Sennosides (Senna) 8.6 mg tablet Active 8.6 MG PO TWICE A DAY August 24, 2022 12:00am 1000 ml sodium chloride 9 mg/ml injection (2 sources) Start: 10-18-2021 End: 10-18-2021 inject 1 dose intravenously once 0.9 % sodium chloride (NACL 0.9%) infusion Indications: Gross hematuria Inject 150 mL/hr intravenously one time only for 1 dose. Administer at rate defined per CT contrast administration specifications. To be provided with radiology test. 1 Each 0 10/18/2021 10/18/2021 Active Comment on above: Inject 150 mL/hr int ravenously one time only for 1 dose. Administer at rate defined per CT contrast administration specifications. To be provided with radiology test. spironolactone 50 mg oral tablet (20 sources) Aldosterone Antagonist Start: 07-29-2022 take 1 tablet by mouth once daily spironolactone (ALDACTONE) 50 mg tablet Indications: Essential hypertension Take 1 tablet by mouth once daily. 90 tablet 0 07/29/2022 Active Start: 08-31-2021 End: 06-06-2022 take 4.5 tablets by mouth once daily Spironolactone 50 mg tablet Discontinued 50 mg PO DAILY 0 August 31, 2021 12:01pm June 06, 2022 3:59pm Hold if serum potassium more than 4.5 Start: 08-22-2021 End: 07-24-2022 take 1 tablet by mouth once daily Spironolactone 50 mg tablet Discontinued 50 mg PO DAILY August 26, 2021 1:00am August 31, 2021 12:01pm Start: 03-02-2021 End: 04-22-2021 take 1 tablet by mouth once daily Spironolactone 50 mg tablet Discontinued 50 mg PO DAILY March 02, 2021 12:00am April 22, 2021 1:56pm Comment on above: Take 1 tablet by epifanio th once daily. sulfamethoxazole 800 mg / trimethoprim 160 mg oral tablet (4 sources) Dihydrofolate Reductase Inhibitor Antibacterial, Sulfonamide Antimicrobial Start: take 1 tablet by mouth twice daily Sulfamethoxazole-Trim ethoprim Active 1 TABLET PO TWICE A DAY December 14, 2021 12:00am 24 hr divalproex sodium 250 mg extended release oral tablet (20 sources) Mood Stabilizer, Anti-epileptic Agent Start: End: divalproex ER (DEPAKOTE ER) 250 mg 24 hr tablet Indications: Nonintractable epilepsy without status epilepticus, unspecified epilepsy type (HCC) , Arvind-Christine syndrome with action induced myoclonus Take 1 tablet by mouth twice daily. Per NEUROLOGY. 0 08/22/2021 07/29/2022 Discontinued Start: 05-24-2021 End: 10-31-2021 take 1 tablet by mouth twice daily Divalproex 250 mg tablet extended release 24 hr Discontinued 250 mg PO TWICE A DAY May 30, 2021 3:39pm October 31, 2021 9:46am Comment on above: Take 1 tablet by epifanio th twice daily. Per NEUROLOGY. (15 sources) Start: 08-12-2024 Start: 08-12-2024 End: 11-14-2024 Start: 07-29-2024 Start: 07-25-2024 End: 07-29-2024 Start: 07-08-2024 Start: 06-23-2024 End: 07-21-2024 Start: 04-29-2024 Start: 01-16-2024 Start: 01-15-2024 Start: 08-24-2022 End: 05-13-2024 Start: 05-24-2021 End: 07-02-2023 Start: 05-11-2021 End: 05-24-2021 Start: 03-15-2021 End: 08-24-2022 Start: 01-04-2016 End: 01-18-2016 Completed/Discontinued Medications Medication Drug Class(es) Dates Sig (Normalized) Sig (Original) acetaminophen 325 mg / HYDROcodone bitartrate 5 mg oral tablet (20 sources) Opioid Agonist Start: 02-03-2019 End: 02-08-2019 Hydrocodone-Acetami nophen 1 TABLET tablet Discontinued 1 {tbl} PO EVERY 6 HOURS NEEDED as needed for Pain 12 3 February 03, 2019 February 05, 2019 12:00am February 08, 2019 12:09am Start: 02-03-2019 End: 02-08-2019 Start: 02-03-2019 End: 02-08-2019 take 1 tablet by mouth every six hours as needed Hydrocodone-Acetaminophen Discontinued 1 TABLET PO EVERY 6 HOURS NEEDED 12 February 03, 2019 February 07, 2019 11:09pm Start: 08-31-2018 End: 09-02-2018 Hydrocodone-Acetaminophen 1 TABLET tablet Discontinued 1 {tbl} PO EVERY 4 HOURS NEEDED as needed for Pain 5 2 August 31, 2018 1:00am September 01, 2018 1:00am September 02, 2018 1:09am Start: 08-31-2018 End: 09-02-2018 Start: 08-31-2018 End: 09-02-2018 take 1 tablet by mouth every four hours as needed Hydrocodone-Acetaminophen Discontinued 1 TABLET PO EVERY 4 HOURS NEEDED 5 2 August 31, 2018 12:00am September 02, 2018 12:09am Start: 10-06-2016 take 1 tablet by epifanio th every four hours as needed NORCO 5-325 MG TABS 1 tab po q4h as needed HYDROCODONE-ACETAMINOPHEN [id number] Alba Dukes LPN Start: 09-30-2016 End: 10-06-2016 Hydrocodone-Acetaminophen 1 TABLET tablet Discontinued 1 - 2 {tbl} PO EVERY 4 HOURS NEEDED as needed for Pain September 30, 2016 1:00am October 06, 2016 10:15am Start: 09-30-2016 End: 10-06-2016 Start: 09-30-2016 End: 10-06-2016 take 1 tablet by mouth every four hours as needed Hydrocodone-Acetaminophen Discontinued 1 - 2 TABLET PO EVERY 4 HOURS NEEDED September 30, 2016 12:00am October 06, 2016 9:15am acetaminophen 325 mg / oxyCODONE hydrochloride 5 mg oral tablet (20 sources) Opioid Agonist Start: 02-12-2022 End: 03-15-2022 take 1 tablet by mouth every six hours as needed Oxycodone-Acetaminophen Discontinued 1 TABLET PO EVERY 6 HOURS NEEDED 12 February 12, 2022 March 15, 2022 2:10pm Start: 01-15-2022 End: 08-24-2022 Oxycodone-Acetaminophen (Per cocet) 5-325 mg tablet Discontinued 1 {tbl} PO EVERY 6 HOURS as needed for pain 10 3 April 01, 2022 June 06, 2022 4:02pm Start: 01-15-2022 End: 08-24-2022 Start: 09-06-2019 End: 09-09-2019 Oxycodone-Acetaminophen 1 TA BLET tablet Discontinued 1 {tbl} PO EVERY 6 HOURS NEEDED as needed for Pain 12 3 September 06, 2019 September 08, 2019 1:00am September 09, 2019 1:08am Start: 09-06-2019 End: 09-09-2019 Start: 09-06-2019 End: 09-09-2019 take 1 tablet by mouth every six hours as needed Oxycodone-Acetaminophen Discontinued 1 TABLET PO EVERY 6 HOURS NEEDED 12 3 September 06, 2019 September 09, 2019 12:08am Start: 12-12-2015 End: 01-04-2016 Oxycodone-Acetaminophen 1 TA BLET tablet Discontinued 1 - 2 {tbl} PO EVERY 4 HOURS NEEDED as needed for Pain December 12, 2015 12:00am January 04, 2016 9:31am Start: 12-12-2015 End: 01-04-2016 Start: 12-12-2015 End: 01-04-2016 take 1 tablet by mouth every four hours as needed Oxycodone-Acetaminophen Discontinued 1 - 2 TABLET PO EVERY 4 HOURS NEEDED December 11, 2015 11:00pm January 04, 2016 8:31am Comment on above: From [facility] Albuterol 90 mcg/actuation aerosol (5 sources) Start: 08-24-19 End: 05-13-20 take 2 puff(s) by inhalation twice daily as needed Albuterol 90 mcg/actuation aerosol Discontinued 90 ug INHALATION TWICE DAILY NEEDED August 24, 2022 1:00am May 13, 2024 4:12pm 2 puff PRN twice daily as needed for SOB apixaban 5 mg oral tablet (20 sources) Factor Xa Inhibitor Start: 01-20-20 End: 10-18-19 take 1 tablet by mouth twice daily Apixaban (Eliquis) 5 mg tablet Discontinued 5 mg PO TWICE A DAY 60 September 30, 2024 4:11pm October 17, 2024 2:35pm Comment on above: Take 1 tablet by epifanio twice daily. ascorbic acid 500 mg oral tablet (18 sources) Vitamin C Start: 01-20-20 End: 08-24-19 take 1 tablet by mouth twice daily Ascorbic Acid (Vitamin C) 500 mg tablet Discontinued 500 mg PO TWICE A DAY 60 January 19, 2022 12:00am August 24, 2022 5:14pm atorvastatin 80 mg oral tablet (20 sources) HMG-CoA Reductase Inhibitor Start: 08-22-19 End: 08-24-19 23 take 1 tablet by mouth at bedtime Atorvastatin 80 mg tablet Discontinued 80 mg PO AT BEDTIME August 26, 2021 1:00am August 24, 2022 5:14pm Start: 08-19-2015 take 1 tablet by epifanio th at bedtime atorvastatin (LIPITOR) 20 MG tablet Indications: Hyperlipidemia, unspecified hyperlipidemia Take 1 Tablet by mouth at bedtime. 30 Tablet 2 08/19/2015 Active Comment on above: Take 1 tablet by epifanio th once daily. bisacodyl 10 mg rectal suppository (20 sources) Stimulant Laxative Start: End: Bisacodyl 10 mg Suppository Discontinued 10 mg RC DAILY as needed for Constipation 0 May 11, 2021 12:00am May 24, 2021 8:23am 120 actuat budesonide 0.16 mg/actuat / formoterol fumarate 0.0045 mg/actuat metered dose inhaler (20 sources) Corticosteroid, beta2-Adrenergic Agonist Start: 7 End: 7 take 2 puff(s) by inhalation twice daily SYMBICORT 160-4.5 MCG/ACT AERO INH 2 puffs twice daily BUDESONIDE-FORMOTERO L FUMARATE [id number] Alba Dukes LPN Start: 10-10-2016 take 2 puff(s) by in halation twice daily SYMBICORT 160-4.5 MCG/ACT AERO INH 2 puffs twice daily BUDESONIDE-FORMOTEROL FUMARATE [id number] Alba Dukes LPN Start: 10-10-2016 End: 10-19-2016 take 2 puff(s) by inhalation twice daily SYMBICORT 160-4.5 MCG/ACT AERO INH 2 puffs twice daily BUDESONIDE-FORMOTEROL FUMARATE [id number] Yolanda Skinner Start: 10-06-2016 End: 03-02-2021 Budesonide-Formoterol 1 INHA LER inhaler Discontinued 2 NMA INHALATION TWICE A DAY October 06, 2016 12:00am March 02, 2021 5:42pm Start: 10-06-2016 End: 03-02-2021 Start: 10-06-2016 End: 03-02-2021 take 1 puff(s) by inhalation twice daily Budesonide-Formoterol Discontinued 2 PUFF INHALATION TWICE A DAY October 05, 2016 11:00pm March 02, 2021 4:42pm calcium (13 sources) Phosphate Binder, Calcium Start: 10-10-2016 take 1 tablet by mouth once daily CALCIUM 600 MG TABS One tablet by mouth daily CALCIUM [id number] Alba Amy Dukes [employer]PL[employer] Start: 10-10-2016 take 1 tablet by epifanio th once daily CALCIUM 600 MG TABS One tablet by mouth daily CALCIUM [id number] Alba Amy Dukes [employer] calcium carbonate 1500 mg oral tablet (20 sources) Start: 10-10-2016 take 1 tablet by mouth once daily CALCIUM 600 MG TABS One tablet by mouth daily CALCIUM [id number] Alba Amy Dukes [employer] End: 02-20-2022 take 1 tablet by mouth once daily calcium carbonate (CALCIUM 600 ORAL) Take 1 tablet by mouth once daily. 0 02/20/2022 Discontinued take 1 tablet by epifanio th once daily calcium carbonate (CALCIUM 600 ORAL) Take 1 tablet by mouth once daily. 0 Active Comment on above: Take 1 tablet by epifanio th once daily. cefadroxil 1000 mg oral tablet (20 sources) Cephalosporin Antibacterial Start: 10-07-19 End: 10-07-19 take 1 tablet by mouth twice daily Cefadroxil 1 GM tablet Discontinued 1 g PO TWICE A DAY October 06, 2016 12:00am October 06, 2016 10:27am cefdinir 300 mg oral capsule (20 sources) Cephalosporin Antibacterial Start: 10-01-19 End: 10-14-19 take 1 capsule by mouth twice daily Cefdinir 300 MG capsule Discontinued 300 mg PO TWICE A DAY September 30, 2016 1:00am October 06, 2016 10:09am ciprofloxacin 3 mg/ml ophthalmic solution (20 sources) Quinolone Antimicrobial Start: 06-23-20 End: 07-21-20 Ciprofloxacin Hcl 0.3 % Drops Discontinued 2 NMA LEFT EYE EVERY 6 HOURS 10 June 23, 2024 1:00am July 21, 2024 10:24am Start: 03-27-2017 End: 08-01-2017 take 1 tablet by mouth twice daily Ciprofloxacin Hcl 500 MG tablet Discontinued 500 mg PO TWICE A DAY March 27, 2017 12:00am August 01, 2017 10:17am esomeprazole 20 mg delayed release oral capsule (9 sources) Proton Pump Inhibitor Start: 08-24-2022 End: 07-02-2023 take 1 capsule by mouth once daily Esomeprazole Magnesium 20 mg capsule,delayed release(DR/EC) Discontinued 20 mg PO DAILY August 24, 2022 1:00am July 02, 2023 11:53pm ferrous sulfate 325 mg oral tablet (20 sources) Start: 08-12-2024 End: 11-14-2024 take 1 tablet by mouth every other day Ferrous Sulfate (Ferosul) 325 mg (65 mg iron) tablet Discontinued 325 mg PO EVERY OTHER DAY August 12, 2024 1:00am November 14, 2024 7:33am Start: 06-23-2024 End: 07-21-2024 take 1 tablet by mouth every other day Ferrous Sulfate 325 mg (65 mg iron) tablet Discontinued 325 mg PO EVERY OTHER DAY June 23, 2024 1:00am July 21, 2024 10:24am On Hold: Order Changed Start: 01-19-2022 End: 06-05-2022 take 1 tablet by mouth once daily Ferrous Sulfate 325 mg (65 mg iron) tablet,delayed release (DR/EC) Discontinued 325 mg PO DAILY March 15, 2022 3:09pm June 05, 2022 3:55pm Start: 01-19-2022 End: 03-15-2022 take 1 tablet by mouth three times daily Ferrous Sulfate 325 mg (65 mg iron) tablet,delayed release (DR/EC) Discontinued 325 mg PO THREE TIMES A DAY January 19, 2022 12:00am March 15, 2022 3:11pm Food Supplemt, Lactose-Reduced (Ensure Compact) liquid (20 sources) Start: 05-24-2021 End: 07-02-2023 take 1 mL by mouth once daily Food Supplemt, Lactose-Reduced (Ensure Compact) liquid Discontinued 118 mL PO DAILY May 24, 2021 8:23am July 02, 2023 11:54pm Start: 05-24-2021 End: 07-02-2023 take 1 mL by mouth once daily Food Supplemt, Lactose-R educed (Ensure Compact) liquid Discontinued 118 ML PO DAILY May 24, 2021 7:23am July 02, 2023 10:54pm Start: 05-24-2021 take 1 mL by mouth once daily Food Supplemt, Lactose-Reduced (Ensure Compact) liquid Active 118 ML PO DAILY May 24, 2021 7:23am Start: 05-24-2021 take 1 mL by mouth once daily Food Supplemt, Lactose-Reduced (Ensure Compact) liquid Active 118 ML PO DAILY May 24, 2021 8:23am Food Supplemt, Lactose-Reduced (Ensure Compact) Liquid (20 sources) Start: 05-11-2021 End: 05-24-2021 take 1 mL by mouth four times daily Food Supplemt, Lactose-Reduced (Ensure Compact) Liquid Discontinued 118 ML PO 4 TIMES DAILY 0 May 11, 2021 11:18am May 24, 2021 8:25am Start: 05-11-2021 End: 05-24-2021 take 1 mL by mouth four times daily Food Supplemt, Lactose-Reduced (Ensure Compact) Liquid Discontinued 118 mL PO 4 TIMES DAILY May 11, 2021 12:00am May 24, 2021 8:25am Start: 05-11-2021 End: 05-24-2021 take 1 mL by mouth four times daily Food Supplemt, Lactose-Reduced (Ensure Compact) Liquid Discontinued 118 ML PO 4 TIMES DAILY May 10, 2021 11:00pm May 24, 2021 7:25am Start: 05-11-2021 End: 05-24-2021 take 1 mL by mouth four times daily Food Supplemt, Lactose-Reduced (Ensure Compact) Liquid Discontinued 118 ML PO 4 TIMES DAILY May 11, 2021 12:00am May 24, 2021 8:25am furosemide 20 mg oral tablet (20 sources) Loop Diuretic Start: 05-13-2024 End: 12-17-2024 Furosemide 20 mg tablet Discontinued 30 mg PO DAILY July 22, 2024 4:40pm December 17, 2024 3:16pm Start: 08-24-2022 End: 07-22-2024 take 10 mg by mouth every other day Furosemide (Lasix) 20 mg tablet Discontinued 10 mg PO EVERY OTHER DAY July 02, 2023 1:00am May 13, 2024 11:24am Start: 07-29-2022 End: 05-13-2024 take 1 tablet by mouth once daily Furosemide (Lasix) 20 mg tablet Discontinued 20 mg PO DAILY August 24, 2022 1:00am May 13, 2024 11:25am Start: 02-17-2022 End: 07-24-2022 take 1 tablet by mouth once daily furosemide (LASIX) 20 mg tablet Indications: Essential hypertension Take 1 tablet by mouth once daily. 90 tablet 1 02/17/2022 07/24/2022 Discontinued Start: 08-31-2021 End: 06-06-2022 Furosemide (Lasix) 20 mg tab let Discontinued 20 mg PO DAILY as needed for leg swelling March 31, 2022 10:55am June 06, 2022 3:58pm Do not take if systolic blood pressure is less than 110 mmHg Start: 05-11-2021 End: 08-31-2021 take 1 tablet by mouth once daily Furosemide (Lasix) 20 mg tablet Discontinued 20 mg PO DAILY May 11, 2021 12:00am August 31, 2021 12:01pm Start: 04-22-2021 End: 05-11-2021 take 2 tablets by mouth once daily Furosemide 20 mg tablet Discontinued 40 mg PO DAILY April 22, 2021 1:56pm May 11, 2021 11:16am Start: 04-22-2021 End: 05-11-2021 take 40 mg by mouth once daily Furosemide Discontinued 40 MG PO DAILY April 22, 2021 12:56pm May 11, 2021 10:16am Start: 03-02-2021 End: 04-22-2021 take 1 tablet by mouth once daily Furosemide 20 mg tablet Discontinued 20 mg PO DAILY March 02, 2021 12:00am April 22, 2021 1:56pm Start: 03-02-2021 End: 06-06-2022 Comment on above: Take 1 tablet by epifanio th once daily. 12 hr guaiFENesin 1200 mg extended release oral tablet (19 sources) Start: 10-06-2016 take 1 tablet by mouth twice daily MUCINEX MAXIMUM STRENGTH 1200 MG [id number] One tablet by mouth twice daily GUAIFENESIN [id number] Alba Amy Dukes [employer] Start: 10-06-2016 take 1 tablet by epifanio th twice daily MUCINEX MAXIMUM STRENGTH 1200 MG [id number] One tablet by mouth twice daily GUAIFENESIN [id number] Alba Amy Dukes [employer] iv contrast (will be provide d with radiology test) (14 sources) Start: 10-18-2021 End: 02-20-2022 iv contrast (will be provide d with radiology test) Indications: Gross hematuria CT Urogram WO/W Inject, intravenously, once for 1 dose.No IV access, insert saline lock prior to the beginning of sedation, infusion, injection of imaging exam. Discontinue saline lock post exam. If Pt. has a central line or IVAD, may access for administration according to line specific nursing protocol. Once exam is complete flush line and de-access according to line specific nursing protocol in the CT contrast administration guidelines link. 1 Each 0 10/18/2021 02/20/2022 Discontinued Start: 10-18-2021 iv contrast (w ill be provided with radiology test) Indications: Gross hematuria CT Urogram WO/W Inject, intravenously, once for 1 dose.No IV access, insert saline lock prior to the beginning of sedation, infusion, injection of imaging exam. Discontinue saline lock post exam. If Pt. has a central line or IVAD, may access for administration according to line specific nursing protocol. Once exam is complete flush line and de-access according to line specific nursing protocol in the CT contrast administration guidelines link. 1 Each 0 10/18/2021 Active Comment on above: CT Urogram WO/W Inje ct, intravenously, once for 1 dose.No IV access, insert saline lock prior to the beginning of sedation, infusion, injection of imaging exam. Discontinue saline lock post exam. If Pt. has a central line or IVAD, may access for administration according to line specific nursing protocol. Once exam is complete flush line and de-access according to line specific nursing protocol in the CT contrast administration guidelines link. labetalol hydrochloride 100 mg oral tablet (20 sources) beta-Adrenergic Juan José Start: 04-08-20 End: 03-02-20 take 1 tablet by mouth twice daily Labetalol 100 MG tablet Discontinued 100 mg PO TWICE A DAY 60 April 08, 2016 12:00am March 02, 2021 5:42pm lansoprazole 30 mg delayed release oral capsule (20 sources) Proton Pump Inhibitor Start: 10-11-19 End: 10-20-19 take 1 tablet by mouth once daily PREVACID 30 MG CPDR One tablet by mouth daily LANSOPRAZOLE [id number] Arin Katelyn Shea NP Start: 01-03-2016 End: 08-01-2017 take 1 capsule by mouth once daily Lansoprazole 30 MG capsule Discontinued 30 mg PO DAILY January 03, 2016 12:00am August 01, 2017 10:14am levETIRAcetam 500 mg oral tablet (20 sources) Start: 08-12-2024 End: 08-13-2024 take 1 tablet by mouth twice daily Levetiracetam 500 mg tablet Discontinued 500 mg PO TWICE A DAY August 12, 2024 1:00am August 13, 2024 2:27am Start: 07-23-2024 End: 01-08-2025 take 1 tablet by mouth twice daily Levetiracetam 750 mg tablet Active 750 mg PO TWICE A DAY 60 January 08, 2025 8:57am Start: 07-02-2023 End: 07-23-2024 take 1 tablet by mouth twice daily Levetiracetam (Keppra) 500 mg tablet Discontinued 500 mg PO TWICE A DAY 60 June 11, 2024 10:35am June 26, 2024 1:59pm Start: 11-29-2015 End: 08-11-2022 take 1 tablet by mouth twice daily Levetiracetam (Keppra) 500 mg tablet Discontinued 500 mg PO TWICE A DAY April 18, 2022 5:09pm August 11, 2022 7:18pm Comment on above: Take 1 tablet by epifanio th twice daily. Per NEUROLOGY. levothyroxine sodium 0.025 mg oral tablet (20 sources) l-Thyroxine Start: 7 take 1 tablet by mouth once daily SYNTHROID 25 MCG TABS One tablet by mouth daily LEVOTHYROXINE SODIUM [id number] Alba Dukes LPN Start: 01-03-2016 End: 03-02-2021 take 1 tablet by mouth once daily Levothyroxine 25 MCG tablet Discontinued 25 ug PO DAILY@0600 March 27, 2017 12:00am March 02, 2021 5:42pm losartan potassium 100 mg oral tablet (20 sources) Angiotensin 2 Receptor Juan José Start: 08-24-2022 End: 12-10-2024 take 1 tablet by mouth once daily Losartan (Cozaar) 100 mg tablet Discontinued 100 mg PO DAILY May 13, 2024 11:20am June 26, 2024 1:59pm Start: 08-31-2021 End: 06-06-2022 Losartan 25 mg tablet Discon tinued 100 mg PO DAILY March 31, 2022 10:55am June 06, 2022 3:59pm Hold for SBP less than 110 mmHg Start: 05-11-2021 End: 08-31-2021 take 1 tablet by mouth once daily Losartan 25 mg tablet Discontinued 25 mg PO DAILY May 11, 2021 12:00am August 31, 2021 12:01pm Start: 05-11-2021 End: 06-06-2022 Losartan Discontinued 100 MG PO DAILY March 31, 2022 9:55am June 06, 2022 2:59pm Hold for SBP less than 110 mmHg Start: 03-02-2021 End: 05-11-2021 Losartan 100 mg tablet Disco ntinued 100 mg PO DAILY April 22, 2021 1:56pm May 11, 2021 11:16am Hold for SBP less than 130 mmHg Start: 08-01-2017 End: 03-02-2021 take 1 tablet by mouth once daily Losartan 50 mg tablet Discontinued 50 mg PO DAILY August 01, 2017 1:00am March 02, 2021 5:37pm Start: 10-10-2016 take 1 tablet by epifanio th twice daily COZAAR 50 MG TABS One tablet by mouth twice daily LOSARTAN POTASSIUM [id number] Alba Grimaldoyumiko Dukes LPN Start: 01-03-2016 End: 08-01-2017 Losartan 100 MG tablet Disco ntinued 50 mg PO TWICE A DAY January 03, 2016 12:00am August 01, 2017 10:16am Start: 01-03-2016 End: 08-01-2017 take 50 mg by mouth twice daily Losartan Discontinued 50 MG PO TWICE A DAY January 02, 2016 11:00pm August 01, 2017 9:16am Start: 06-04-2015 End: 07-24-2022 take 1 tablet by mouth once daily Losartan 100 mg tablet Discontinued 100 mg PO DAILY March 02, 2021 12:00am April 22, 2021 1:56pm Comment on above: Take 1 tablet by epifanio th once daily. 24 hr metoprolol succinate 100 mg extended release oral tablet (20 sources) beta-Adrenergic Juan José Start: 06-06-2022 End: 11-14-2024 Metoprolol Succinate 100 mg tablet extended release 24 hr Discontinued 50 mg PO DAILY May 13, 2024 11:21am June 26, 2024 1:59pm Hold for heart less than 60 or systolic blood pressure less than 100 mmHg. Start: 03-31-2022 End: 06-06-2022 Metoprolol Succinate Active 50 MG PO DAILY June 06, 2022 3:03pm Hold for heart less than 60 or systolic blood pressure less than 100 mmHg. Start: 08-31-2021 End: 06-06-2022 Metoprolol Succinate Discont inued 100 MG PO DAILY March 31, 2022 9:56am June 06, 2022 3:03pm Hold for heart less than 60 or systolic blood pressure less than 100 mmHg. Start: 05-24-2021 End: 05-13-2024 Metoprolol Succinate 100 mg tablet extended release 24 hr Discontinued 100 mg PO DAILY March 31, 2022 10:56am June 06, 2022 4:03pm Hold for heart less than 60 or systolic blood pressure less than 100 mmHg. Start: 05-11-2021 End: 05-24-2021 take 1 tablet by mouth once daily Metoprolol Succinate 25 mg Tablet Extended Release 24 Hr Discontinued 25 mg PO DAILY May 11, 2021 12:00am May 24, 2021 8:24am Start: 04-22-2021 End: 05-11-2021 Metoprolol Succinate Discont inued 100 MG PO AT BEDTIME April 22, 2021 12:56pm May 11, 2021 10:16am Hold for heart less than 60 or systolic blood pressure less than 100 mmHg. Start: 03-02-2021 End: 05-11-2021 Metoprolol Succinate 100 mg tablet extended release 24 hr Discontinued 100 mg PO AT BEDTIME 0 April 22, 2021 1:56pm May 11, 2021 11:16am Hold for heart less than 60 or systolic blood pressure less than 100 mmHg. Start: 03-02-2021 End: 05-11-2021 Comment on above: Take 1 tablet by epifanio th once daily. mirtazapine 7.5 mg oral tablet (20 sources) Start: 08-22-2021 End: 01-06-2025 take 1 tablet by mouth at bedtime Mirtazapine 7.5 mg tablet Discontinued 7.5 mg PO AT BEDTIME September 30, 2024 4:11pm January 06, 2025 11:29am Start: 01-03-2016 End: 09-06-2016 take 1 tablet by mouth at bedtime Mirtazapine 15 MG tablet Discontinued 15 mg PO AT BEDTIME January 03, 2016 12:00am September 06, 2016 1:33pm Start: 01-03-2016 End: 09-06-2016 Comment on above: Take 1 tablet by epifanio th daily at bedtime. Per [facility]. Mometasone-Formoterol (Dulera) 100-5 mcg/actuation Hfa Aerosol Inhaler (18 sources) Start: 03-15-2021 End: 08-24-2022 Mometasone-Formoterol (Dulera) 100-5 mcg/actuation Hfa Aerosol Inhaler Discontinued 2 NMA INHALATION Q12H as needed for sob March 15, 2021 12:00am August 24, 2022 5:15pm Start: 03-15-2021 End: 08-24-2022 take 1 puff(s) by inhalation every twelve hours Mometasone-Formoterol (Dulera) 100-5 mcg/actuation Hfa Aerosol Inhaler Discontinued 2 PUFF INHALATION Q12H March 14, 2021 11:00pm August 24, 2022 4:15pm Start: 03-15-2021 End: 08-24-2022 take 1 puff(s) by inhalation every twelve hours Mometasone-Formoterol (Dulera) 100-5 mcg/actuation Hfa Aerosol Inhaler Discontinued 2 PUFF INHALATION Q12H March 15, 2021 12:00am August 24, 2022 5:15pm Start: 03-15-2021 take 1 puff(s) by in halation every twelve hours Mometasone-Formoterol (Dulera) 100-5 mcg/actuation Hfa Aerosol Inhaler Active 2 PUFF INHALATION Q12H March 14, 2021 11:00pm Start: 03-15-2021 take 1 puff(s) by in halation every twelve hours Mometasone-Formoterol (Dulera) 100-5 mcg/actuation Hfa Aerosol Inhaler Active 2 PUFF INHALATION Q12H March 15, 2021 12:00am nitrofurantoin, macrocrystals 25 mg / nitrofurantoin, monohydrate 75 mg oral capsule (15 sources) Nitrofuran Antibacterial Start: 12-29-2024 End: 01-03-2025 take 1 capsule by mouth every twelve hours at mealtime Nitrofurantoin Monohyd/M-Cryst (Macrobid) 100 mg capsule Discontinued 100 mg PO Q12H 10 5 December 29, 2024 12:00am January 02, 2025 12:00am January 03, 2025 12:12am must administer with a meal/food Start: 09-02-2024 End: 09-07-2024 take 1 capsule by mouth every twelve hours at mealtime Nitrofurantoin Monohyd/M-Cryst (Macrobid) 100 mg capsule Discontinued 100 mg PO Q12H 10 5 September 02, 2024 1:00am September 06, 2024 1:00am September 07, 2024 1:12am must administer with a meal/food Start: 11-03-2021 take 100 mg by mouth every twelve hours Nitrofurantoin Monohyd/M-Cryst Active 100 MG PO EVERY 12 HOURS November 03, 2021 12:00am omeprazole 20 mg delayed release oral capsule (20 sources) Proton Pump Inhibitor Start: 07-02-2023 End: 10-17-2024 take 1 capsule by mouth once daily Omeprazole 20 mg capsule,delayed release(DR/EC) Discontinued 20 mg PO DAILY September 30, 2024 4:11pm October 17, 2024 2:35pm Start: 07-29-2022 take 1 capsule by mo ut once daily omeprazole (PRILOSEC) 40 mg capsule Indications: Gastroesophageal reflux disease without esophagitis Take 1 capsule by mouth once daily. 90 capsule 0 07/29/2022 Active Start: 02-17-2022 End: 07-24-2022 take 1 capsule by mouth once daily omeprazole (PRILOSEC) 40 mg capsule Indications: Gastroesophageal reflux disease without esophagitis Take 1 capsule by mouth once daily. 90 capsule 1 02/17/2022 07/24/2022 Discontinued Start: 08-01-2017 End: 10-10-2021 take 1 capsule by mouth once daily Omeprazole 40 mg capsule,delayed release(DR/EC) Discontinued 40 mg PO DAILY August 01, 2017 1:00am October 10, 2021 10:36am Start: 10-19-2016 OMEPRAZOLE 40 MG CPDR one tab once daily OMEPRAZOLE [id number] Arin Shea [employer] Comment on above: Take 1 capsule by [facility] once daily. ondansetron 4 mg oral tablet (20 sources) Serotonin-3 Receptor Antagonist Start: End: take 1 tablet by mouth every eight hours as needed for nausea and vomiting Ondansetron Hcl 4 mg tablet Discontinued 4 mg PO Q8H as needed for nausea and vomiting May 13, 2024 11:21am June 26, 2024 1:59pm Oxygen, Home (Home Oxygen) (20 sources) Start: 6 End: 6 Oxygen, Home (Home Oxygen) Discontinued 2 LPM NASAL Continuous January 04, 2016 9:30am January 18, 2016 8:24pm Start: 01-04-2016 End: 01-18-2016 Oxygen, Home (Home Oxygen) D iscontinued 2 LPM NASAL Continuous January 03, 2016 11:00pm January 18, 2016 7:24pm Start: 01-04-2016 End: 01-18-2016 Oxygen, Home (Home Oxygen) D iscontinued 2 LPM NASAL Continuous January 04, 2016 12:00am January 18, 2016 8:24pm pantoprazole 20 mg delayed release oral tablet (20 sources) Proton Pump Inhibitor Start: 01-19-2022 End: 08-24-2022 take 1 tablet by mouth twice daily Pantoprazole 20 mg Tablet,Delayed Release (Dr/Ec) Discontinued 20 mg PO TWICE A DAY 60 January 19, 2022 12:00am August 24, 2022 5:15pm Start: 08-31-2021 End: 12-12-2021 take 40 mg by mouth twice daily Pantoprazole (Protonix) [address] for susp in packet Discontinued 40 mg PO TWICE A DAY 60 August 31, 2021 1:00am December 12, 2021 3:48pm polyethylene glycol 3350 [id number] mg powder for oral solution (20 sources) Osmotic Laxative Start: 08-24-2022 End: 10-29-2024 Polyethylene Glycol 3350 (Miralax) 17 gram/dose powder Discontinued 4 g PO DAILY 119 June 11, 2024 10:24pm October 29, 2024 12:28pm predniSONE 20 mg oral tablet (20 sources) Start: 09-30-2016 End: 10-06-2016 take 3 tablets by mouth once daily Prednisone 20 MG tablet Discontinued 60 mg PO DAILY September 30, 2016 1:00am October 06, 2016 10:09am Start: 09-30-2016 End: 10-31-2016 take 1 tablet by mouth once daily PREDNISONE 20 MG TABS One tablet by mouth daily PREDNISONE [id number] Alba Dukes LPN Start: 09-30-2016 End: 10-06-2016 take 60 mg by mouth once daily Prednisone Discontinued 60 MG PO DAILY September 30, 2016 12:00am October 06, 2016 9:09am rivaroxaban 20 mg oral tablet (20 sources) Factor Xa Inhibitor Start: 01-04-2016 End: 02-20-2022 take 1 tablet by mouth once daily Rivaroxaban 20 mg tablet Discontinued 20 mg PO DAILY March 26, 2019 10:22am August 31, 2021 11:59am Comment on above: Take 1 tablet by epifanio th daily with dinner. tiZANidine 4 mg oral tablet (20 sources) Central alpha-2 Adrenergic Agonist Start: 09-22-2021 End: 08-24-2022 take 1 tablet by mouth every eight hours as needed Tizanidine 4 mg tablet Discontinued 4 mg PO Q8H as needed for muscle spasticity September 22, 2021 1:00am August 24, 2022 5:15pm 24 hr venlafaxine 150 mg extended release oral capsule (20 sources) Serotonin and Norepinephrine Reuptake Inhibitor Start: 07-13-2022 End: 12-29-2024 take 1 capsule by mouth once daily Venlafaxine (Effexor Xr) 150 mg capsule,extended release 24hr Discontinued 150 mg PO DAILY September 17, 2024 4:25pm December 29, 2024 9:19am Start: 11-02-2021 End: 05-10-2022 take 1 capsule by mouth once daily venlafaxine (EFFEXOR XR) 150 MG ER capsule Indications: Anxiety , Major depressive disorder, recurrent episode with anxious distress (HCC) TAKE 1 CAPSULE BY MOUTH ONCE DAILY 30 Capsule 2 04/03/2022 05/10/2022 Discontinued (Reorder (*won't e-cancel)) Start: 04-25-2021 End: 08-24-2022 take 2 capsules by mouth once daily Venlafaxine 37.5 mg capsule,extended release 24hr Discontinued 37.5 mg PO DAILY April 25, 2021 12:00am August 24, 2022 5:15pm Take daily with 75 mg dose Start: 04-25-2021 End: 08-24-2022 Start: 09-02-2020 End: 07-29-2022 venlafaxine ER (EFFEXOR XR) 37.5 mg 24 hr capsule Take 37.5 mg by mouth once daily. Plus 75 mg capsule. [facility]. 0 09/02/2020 07/29/2022 Discontinued Start: 05-13-2020 End: 08-24-2022 take 1 capsule by mouth once daily Venlafaxine 75 mg capsule,extended release 24hr Discontinued 75 mg PO DAILY March 02, 2021 12:00am August 24, 2022 5:15pm Start: 10-10-2016 End: 01-18-2017 take 3 tablets by mouth once daily EFFEXOR XR 75 MG [id number] Three tablets by mouth daily VENLAFAXINE HCL [id number] Alba Dukes LPN Start: 10-10-2016 End: 01-18-2017 take 3 tablets by mouth once daily EFFEXOR XR 75 MG [id number] Three tablets by mouth daily VENLAFAXINE HCL [id number] Kee Bagley MD Start: 10-10-2016 take 3 tablets by mo uth once daily EFFEXOR XR 75 MG [id number] Three tablets by mouth daily VENLAFAXINE HCL [id number] Alba Dukes [employer]GER [employer]OYMENT Start: 01-03-2016 End: 08-01-2017 take 3 tablets by mouth once daily Venlafaxine 75 MG tablet Discontinued 225 mg PO DAILY January 03, 2016 12:00am August 01, 2017 10:17am Start: 01-03-2016 End: 08-01-2017 Comment on above: Take 75 mg by mouth once daily. Plus 37.5 mg capsule. [facility]. Take 37.5 mg by mout h once daily. Plus 75 mg capsule. [facility]. TAKE 1 CAPSULE BY MO UTH ONCE DAILY FOR DEPRESSION. DO NOT CHEW OR CRUSH Problems Active Problems Problem Classification Problem Date Documented Da te Episodic/Chronic Abdominal pain (20 sources) Flank pain; Translations: [Unspecified abdominal pain] Onset: 2 Resolved: 5 Episodic Acute and unspecified renal failure (20 sources) Injury of kidney; Translations: [Acute kidney failure, unspecified] Episodic Acute cerebrovascular disease (14 sources) Cerebrovascular accident; Translations: [Cerebral infarction, unspecified] Onset: 2 Resolved: 6 11-05-2018 Chronic Acute posthemorrhagic anemia (20 sources) Anemia due to blood loss; Translations: [Acute posthemorrhagic anemia] Episodic Anxiety disorders (20 sources) Anxiety; Translations: [Anxiety disorder, unspecified] Onset: 5 07-07-2015 Chronic Comment on above: on med Asthma (12 sources) Asthma-chronic obstructive pulmonary disease overlap syndrome; Translations: [Asthma with chronic obstructive pulmonary disease (COPD)] Onset: 7 Resolved: 8 09-26-2017 Chronic Calculus of urinary tract (6 sources) Ureteric stone; Translations: [Calculus of ureter] 06-22-2024 Episodic Cancer of breast (20 sources) Papillary carcinoma in situ of breast; Translations: [Other specified type of carcinoma in situ of left breast] Onset: 1 05-05-2021 Chronic Cancer of breast (1 source) Personal history of malignant neoplasm of breast; Translations: [Personal history of malignant neoplasm of breast] 07-02-2023 Episodic Chronic obstructive pulmonary disease and bronchiectasis (20 sources) Acute exacerbation of chronic obstructive airways disease; Translations: [Asthma-chronic obstructive pulmonary disease overlap syndrome] Onset: 5 Resolved: 6 10-19-2016 Chronic Coma; stupor; and brain damage (20 sources) 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; Translations: [Anoxic brain damage, not elsewhere classified] Chronic Deficiency and other anemia (20 sources) Anemia due to blood loss; Translations: [Iron deficiency anemia secondary to blood loss (chronic)] Onset: 2 Chronic Deficiency and other anemia (20 sources) Anemia; Translations: [Anemia, unspecified] Onset: 8 05-15-2018 Episodic Deficiency and other anemia (20 sources) Chronic anemia; Translations: [Anemia, unspecified] 01-18-2022 Episodic Diabetes mellitus without complication (17 sources) Prediabetes; Translations: [Prediabetes] Onset: 5 Resolved: 9 03-11-2015 Episodic Disorders of lipid metabolism (20 sources) Mixed hyperlipidemia; Translations: [Mixed hyperlipidemia] Onset: 5 11-17-2016 Chronic E Codes: Fall (20 sources) Fall; Translations: [Unspecified fall, initial encounter] 02-07-2023 Episodic Epilepsy; convulsions (20 sources) Epilepsy; Translations: [Epilepsy, unspecified, not intractable, without status epilepticus] Onset: 6 07-18-2021 Chronic Comment on above: on med/last seizure 1 yr ago Esophageal disorders (20 sources) Gastroesophageal reflux disease; Translations: [Gastro-esophageal reflux disease without esophagitis] 07-07-2015 Chronic Essential hypertension (20 sources) Hypertensive disorder; Translations: [Essential hypertension] Onset: 2 Resolved: 9 01-18-2017 Chronic Fluid and electrolyte disorders (20 sources) Lactic acidosis; Translations: [Acidosis] Episodic Fracture of lower limb (20 sources) Fracture of foot ; Translations: [Unspecified fracture of right foot, initial encounter for closed fracture] 09-06-2019 Episodic Gastrointestinal hemorrhage (20 sources) Hematemesis; Translations: [Hematemesis] Episodic Genitourinary symptoms and ill-defined conditions (20 sources) Nestor hematuria; Translations: [Gross hematuria] Onset: 6 Episodic Headache; including migraine (20 sources) Headache; Translations: [Headache] Episodic Headache; including migraine (1 source) Headache; including migraine; Translations: [Headache, unspecified] Onset: 5 Immunizations and screening for infectious disease (4 sources) Encounter for immunization; Translations: [Need for prophylactic vaccination and inoculation against unspecified single disease] Episodic Intracranial injury (20 sources) Concussion injury of body structure; Translations: [Concussion with loss of consciousness of unspecified duration, initial encounter] Onset: 2 Episodic Miscellaneous mental health disorders (20 sources) Eating disorder; Translations: [Eating disorder, unspecified] Onset: 3 10-10-2012 Chronic Mood disorders (20 sources) Depressive disorder; Translations: [Depression] Onset: 5 07-07-2015 Chronic Nonspecific chest pain (20 sources) Chest pain; Translations: [Chest pain, unspecified] Onset: 5 01-18-2017 Episodic Nutritional deficiencies (12 sources) Vitamin D deficiency; Translations: [Vitamin D deficiency, unspecified] Onset: 5 03-10-2024 Chronic Nutritional deficiencies (5 sources) Iron deficiency; Translations: [Iron deficiency] 12-29-2024 Episodic Open wounds of extremities (8 sources) Laceration of hand; Translations: [Laceration without foreign body of unspecified hand, initial encounter] 08-29-2024 Episodic Osteoarthritis (20 sources) Arthritis; Translations: [Unspecified osteoarthritis, unspecified site] 07-07-2015 Chronic Other and ill-defined heart disease (20 sources) Diastolic dysfunction; Translations: [Other ill-defined heart diseases] 03-04-2018 Chronic Other and unspecified benign neoplasm (6 sources) Lipoma of back; Translations: [Benign lipomatous neoplasm of skin and subcutaneous tissue of trunk] 02-21-2024 Episodic Other connective tissue disease (20 sources) Recurrent falls ; Translations: [Repeated falls] Onset: 2 Episodic Other connective tissue disease (1 source) Pain in left lower limb; Translations: [Pain in left leg] Episodic Other connective tissue disease (12 sources) Muscle weakness; Translations: [Muscle weakness (generalized)] 06-13-2022 Episodic Other connective tissue disease (2 sources) Muscle weakness (generalized); Translations: [Muscle weakness (generalized)] Episodic Other diseases of kidney and ureters (20 sources) Renal impairment; Translations: [Disorder of kidney and ureter, unspecified] 12-22-2021 Episodic Other fractures (20 sources) Closed fracture thoracic vertebra; Translations: [Unspecified fracture of T5-T6 vertebra, initial encounter for closed fracture] 05-19-2021 Episodic Other fractures (20 sources) Fracture of sixth thoracic vertebra; Translations: [Unspecified fracture of T5-T6 vertebra, initial encounter for closed fracture] 05-19-2021 Episodic Other fractures (20 sources) Fracture of multiple ribs ; Translations: [Multiple fractures of ribs, unspecified side, initial encounter for closed fracture] 05-19-2021 Episodic Other gastrointestinal disorders (20 sources) Diarrhea; Translations: [Diarrhea, unspecified] 09-06-2019 Episodic Other hereditary and degenerative nervous system conditions (20 sources) Myoclonus; Translations: [Myoclonus] Onset: 2 08-22-2021 Chronic Other hereditary and degenerative nervous system conditions (20 sources) Myoclonus; Translations: [Myoclonus] Onset: 4 Chronic Other injuries and conditions due to external causes (20 sources) Closed injury of head; Translations: [Unspecified injury of head, initial encounter] Onset: 2 Episodic Other injuries and conditions due to external causes (12 sources) Injury of head; Translations: [Unspecified injury of head, initial encounter] 11-15-2024 Episodic Other liver diseases (20 sources) Steatosis of liver; Translations: [Fatty (change of) liver, not elsewhere classified] 09-15-2021 Chronic Other liver diseases (15 sources) Fatty (change of) liver, not elsewhere classified; Translations: [Other chronic nonalcoholic liver disease] Chronic Other lower respiratory disease (20 sources) Dyspnea; Translations: [Restrictive lung disease] Onset: 7 10-19-2016 Episodic Other lower respiratory disease (20 sources) History of chronic obstructive airway disease; Translations: [Personal history of other diseases of the respiratory system] 01-18-2022 Episodic Other nervous system disorders (20 sources) Polyneuropathy; Translations: [Polyneuropathy, unspecified] Onset: 2 01-30-2022 Chronic Other nervous system disorders (20 sources) Polyneuropathy, unspecified; Translations: [Unspecified hereditary and idiopathic peripheral neuropathy] Onset: 4 Chronic Other nervous system disorders (20 sources) Chronic pain; Translations: [Other chronic pain] Onset: 6 08-19-2015 Chronic Other nervous system disorders (19 sources) Chronic pain syndrome; Translations: [Chronic pain syndrome] Onset: 2 Chronic Other nervous system disorders (1 source) Other chronic pain; Translations: [Other chronic pain] 07-02-2023 Chronic Other nervous system disorders (9 sources) Anesthesia of skin; Translations: [Disturbance of skin sensation] Episodic Other non-traumatic joint disorders (20 sources) Hip pain; Translations: [Pain in unspecified hip] 07-02-2020 Episodic Other non-traumatic joint disorders (20 sources) Ankle pain; Translations: [Pain in unspecified ankle and joints of unspecified foot] 07-02-2020 Episodic Other nutritional; endocrine; and metabolic disorders (20 sources) Body mass index (BMI) 45.0-49.9, adult; Translations: [Obesity] Onset: 7 01-18-2017 Chronic Other nutritional; endocrine; and metabolic disorders (20 sources) Obesity; Translations: [Obesity, unspecified] Onset: 2 Resolved: 5 01-02-2017 Chronic Other nutritional; endocrine; and metabolic disorders (20 sources) Body mass index 40+ - severely obese; Translations: [Morbid (severe) obesity due to excess calories] Onset: 8 01-01-2018 Chronic Other nutritional; endocrine; and metabolic disorders (12 sources) Morbid obesity; Translations: [Morbid (severe) obesity due to excess calories] Onset: 5 Resolved: 9 03-11-2015 Chronic Other nutritional; endocrine; and metabolic disorders (3 sources) Obesity, unspecified; Translations: [Obesity, unspecified] Chronic Other nutritional; endocrine; and metabolic disorders (2 sources) Adult failure to thrive; Translations: [Adult failure to thrive] Episodic Other skin disorders (6 sources) Subcutaneous nodule; Translations: [Localized swelling, mass and lump, unspecified] 02-21-2024 Episodic Other upper respiratory disease (1 source) Bleeding from nose; Translations: [Epistaxis] Episodic Paralysis (7 sources) Right hemiparesis; Translations: [Hemiplegia, unspecified affecting right dominant side] Onset: 4 08-13-2024 Chronic Phlebitis; thrombophlebitis and thromboembolism (20 sources) H/O: Deep vein thrombosis; Translations: [Personal history of other venous thrombosis and embolism] Onset: 5 12-28-2016 Episodic Pneumonia (except that caused by tuberculosis or sexually transmitted disease) (20 sources) Pneumonia due to Staphylococcus aureus; Translations: [Pneumonia due to Klebsiella pneumoniae] Onset: 7 10-19-2016 Episodic Pulmonary heart disease (20 sources) Secondary pulmonary hypertension; Translations: [Pulmonary hypertension, secondary] Onset: 7 11-17-2016 Chronic Pulmonary heart disease (20 sources) Pulmonary embolism; Translations: [Other pulmonary embolism without acute cor pulmonale] Onset: 6 Resolved: 7 10-19-2016 Episodic Residual codes; unclassified (20 sources) Obstructive sleep apnea syndrome; Translations: [Obstructive sleep apnea (adult) (pediatric)] Onset: 5 10-19-2016 Chronic Residual codes; unclassified (3 sources) Obstructive sleep apnea (adult) (pediatric); Translations: [Obstructive sleep apnea (adult)(pediatric)] Chronic Residual codes; unclassified (20 sources) Altered mental status; Translations: [Altered mental status, unspecified] 04-30-2021 Episodic Residual codes; unclassified (20 sources) Pain; Translations: [Pain, unspecified] 01-15-2022 Episodic Residual codes; unclassified (1 source) H/O: anticoagulant therapy; Translations: [Personal history of other drug therapy] Episodic Residual codes; unclassified (1 source) Personal history of other drug therapy; Translations: [Personal history of other drug therapy] Episodic Residual codes; unclassified (2 sources) Chronic pain Episodic Respiratory failure; insufficiency; arrest (adult) (20 sources) Dependence on supplemental oxygen; Translations: [Gzpmg-xf-bogdygr respiratory failure] Onset: 7 10-19-2016 Chronic Sprains and strains (20 sources) Sprain of ankle; Translations: [Sprain of unspecified ligament of unspecified ankle, initial encounter] Onset: 6 Resolved: 7 09-06-2019 Episodic Substance-related disorders (20 sources) Opioid dependence; Translations: [Tobacco dependence syndrome] Onset: 7 10-27-2016 Chronic Superficial injury; contusion (20 sources) Contusion of chest; Translations: [Contusion of unspecified front wall of thorax, initial encounter] Onset: 5 Episodic Thyroid disorders (20 sources) Hypothyroidism; Translations: [Hypothyroidism, unspecified] Onset: 5 Resolved: 9 03-11-2015 Chronic Transient cerebral ischemia (20 sources) Cerebral ischemia; Translations: [Transient cerebral ischemic attack, unspecified] 02-14-2022 Chronic Unclassified (7 sources) Parkinson's disease; Translations: [Parkinson's disease] 08-13-2024 Chronic Unclassified (1 source) NO SHOW Unclassified (2 sources) High Risk Chronic Disease Home Monitoring Problem Onset: 3 12-05-2022 Unclassified (2 sources) G89.29 - Other chronic pain,R29.6 - Repeated falls Urinary tract infections (20 sources) Recurrent urinary tract infection; Translations: [Urinary tract infection, site not specified] Onset: 2 Resolved: 6 Episodic Past or Other Problems Problem Classification Problem Date Documented Da te Episodic/Chronic Abdominal hernia (10 sources) Hernia of abdominal cavity; Translations: [Unspecified abdominal hernia without obstruction or gangrene] Onset: 6 08-19-2015 Episodic Administrative/social admission (9 sources) Bereavement; Translations: [Disappearance and of family member] Onset: 2 Episodic Conditions associated with dizziness or vertigo (7 sources) Dizziness; Translations: [Dizziness and giddiness] Onset: 5 11-14-2024 Episodic Congestive heart failure; nonhypertensive (19 sources) Diastolic dysfunction; Translations: [Heart disease, unspecified] Onset: 7 01-02-2017 Episodic Deficiency and other anemia (20 sources) Anemia, unspecified; Translations: [Anemia, unspecified] Onset: 4 Episodic Gastroduodenal ulcer (except hemorrhage) (2 sources) Gastrointestinal ulcer; Translations: [Gastrojejunal ulcer, unspecified as acute or chronic, without hemorrhage or perforation] Resolved: 6 12-21-2015 Chronic Malaise and fatigue (20 sources) Asthenia; Translations: [Weakness] Onset: 4 Episodic Other circulatory disease (1 source) Personal history of sudden cardiac arrest; Translations: [Personal history of sudden cardiac arrest] Onset: 4 Episodic Other connective tissue disease (10 sources) Pain in right foot; Translations: [Pain in right foot] Onset: 6 10-18-2015 Episodic Other connective tissue disease (15 sources) Repeated falls; Translations: [History of fall] Onset: 5 Episodic Other diseases of kidney and ureters (2 sources) Acquired renal cystic disease; Translations: [Cyst of kidney, acquired] Onset: 9 Resolved: 1 05-05-2021 Episodic Other gastrointestinal disorders (1 source) Disease of intestine, unspecified; Translations: [Disease of intestine, unspecified] Onset: 7 Episodic Other gastrointestinal disorders (2 sources) Mass of colon; Translations: [Other specified diseases of intestine] Onset: 7 Resolved: 8 09-26-2017 Episodic Other injuries and conditions due to external causes (1 source) Unspecified injury of head, initial encounter; Translations: [Unspecified injury of head, initial encounter] Onset: 5 Episodic Other lower respiratory disease (20 sources) Restrictive lung disease; Translations: [Other disorders of lung] Onset: 7 01-02-2017 Episodic Other lower respiratory disease (2 sources) Hypoxemia; Translations: [Hypoxemia] Onset: 6 Resolved: 8 09-26-2017 Episodic Other nutritional; endocrine; and metabolic disorders (20 sources) Adult failure to thrive syndrome; Translations: [Adult failure to thrive] Onset: 2 Episodic Other screening for suspected conditions (not mental disorders or infectious disease) (4 sources) Patient encounter status; Translations: [Encounter for screening mammogram for malignant neoplasm of breast] Onset: 1 Resolved: 1 Episodic Other skin disorders (1 source) Localized swelling, mass and lump, unspecified; Translations: [Localized swelling, mass and lump, unspecified] Onset: 4 Episodic Residual codes; unclassified (10 sources) Tobacco user; Translations: [Tobacco use] Onset: 6 08-19-2015 Episodic Residual codes; unclassified (10 sources) Family history of breast cancer; Translations: [Family history of malignant neoplasm of breast] Onset: 6 08-19-2015 Episodic Residual codes; unclassified (10 sources) Family history of cancer of colon; Translations: [Family history of malignant neoplasm of digestive organs] Onset: 6 08-19-2015 Episodic Spondylosis; intervertebral disc disorders; other back problems (20 sources) Chronic low back pain; Translations: [Chronic bilateral low back pain without sciatica] Onset: 6 09-26-2017 Episodic Syncope (20 sources) Syncope and collapse; Translations: [Syncope and collapse] Onset: 7 01-18-2017 Episodic Unclassified (20 sources) Bilateral peripheral pulmonary emboli 03-15-2021 Comment on above: 4 yrs ago on xarelto Results Test Name Value Interpretation Reference Range Facility Kidney and Bladderon 025 Kidney and Bladder Normal [facility] Neurology Visit Reporton Neurology Visit Report Normal [facility] KEPPRA (LEVETIRACETAM)on KEPPRA 66.1 ug/mL Abnormal 10.0-40.0 [facility] Comment on above: Result Comment: Perf ormed at: - [facility] [id number] Director: Azalia Rosen MD, Phone: [phone] Performed By: #### L 503.5510, L3310.0000 ####[facility] [address] [place], [place], [id number] Immunofixation Urineon 01-01 MARCELA Urine Comment Normal . [facility] Comment on above: Result Comment: No m onoclonality detected.Performed at: - [facility] [id number] Director: Eliseo Yañez PhD, Phone: [phone] Performed By: #### L 3600.4030 ####[facility] [address] [place], [address] Urine Cultureon 12-31-2024 URC Normal [facility] Comment on above: Performed By: #### L 400.0001, M100.2200 ####[facility] [address] [place], [place], [id number] Absolute lymphocyte countOrd ered By: Ysabel Laly on 12-29-2024 Lymphocytes Auto (Unsp spec) [#/Vol] 1.75 10*3/uL 0.83-4.51 [facility] Absolute neutrophil countOrd ered By: Ysabel Laly on 12-29-2024 Neutrophils (Bld) [#/Vol] 3.4 10*3/uL 2.0-7.7 [facility] Ammoniaon 12-29-2024 Ammonia (P) [Moles/Vol] 36.3 umol/L Normal 11-51 [facility] Comment on above: Performed By: #### L 503.5510, L3310.0000 ####[facility] [address] [place], [place], [id number] Anion gap in Serum or Plasma Ordered By: Ysabel Rose on 12-29-2024 Anion gap [Moles/Vol] 9 mmol/L 5-15 [facility] Automated lymphocyte count a s percentage of total leukocytesOrdered By: Ysabel Laly on 12-29-2024 Lymphocytes/100 WBC Auto (Unsp spec) 30.2 % 19-41 [facility] BUN/creatinine ratioOrdered By: Ysabeljames Ruffin on 12-29-2024 Urea nitrogen/Creatinine [Mass ratio] 20.8 mg/mg High 10-20 [facility] Basophil percentageOrdered B y: Ysabel Rose on 12-29-2024 Basophils/100 WBC (Bld) 0.7 % 0-1 [facility] Bilirubin Test strip Ql (U)O rdered By: Ysabel Rose on 12-29-2024 Bilirubin Ql (U) Negative Negative [facility] Bilirubin, totalOrdered By: Ysabel Laly on 12-29-2024 Bilirubin [Mass/Vol] mg/dL 0.00-1.30 [facility] CBC W/Diff, Automatedon Absolute Lymph 1.75 X10 3/uL Normal 0.83-4.51 [facility] Comment on above: Performed By: #### L 506.1001, L100.0100, L501.9520, L500.4050 ####[facility] [address] [place], [address] Absolute Neut 3.4 X10 3/uL Normal 2.0-7.7 [facility] Comment on above: Performed By: #### L 506.1001, L100.0100, L501.9520, L500.4050 ####[facility] [address] [place], [address] Basophils/100 WBC (Bld) 0.7 % Normal 0-1 [facility] Comment on above: Performed By: #### L 506.1001, L100.0100, L501.9520, L500.4050 ####[facility] [address] [place], [address] Eosinophils/100 WBC (Bld) 3.5 % Normal 0-5 [facility] Comment on above: Performed By: #### L 506.1001, L100.0100, L501.9520, L500.4050 ####[facility] [address] [place], [address] Erythrocyte distribution width (RBC) [Ratio] 14.6 % Normal 11.6-14.6 [facility] Comment on above: Performed By: #### L 506.1001, L100.0100, L501.9520, L500.4050 ####[facility] [address] [place], [address] Hematocrit (Bld) [Volume fraction] 28.4 % Low 37-47 [facility] Comment on above: Performed By: #### L 506.1001, L100.0100, L501.9520, L500.4050 ####[facility] [address] [place], [address] Hemoglobin (Bld) [Mass/Vol] 8.2 g/dL Low 12.0-15.0 [facility] Comment on above: Performed By: #### L 506.1001, L100.0100, L501.9520, L500.4050 ####[facility] [address] [place], [address] IG% 0.300 Normal 0.0-0.9 [facility] Comment on above: Result Comment: IG% - Immature Granulocytes (promyelocytes, myelocytes andmetamyelocytes) > 1% indicates that a LEFT SHIFT is Present. Performed By: #### L 506.1001, L100.0100, L501.9520, L500.4050 ####[facility] [address] [place], [address] Lymphocytes/100 WBC (Bld) 30.2 % Normal 19-41 [facility] Comment on above: Performed By: #### L 506.1001, L100.0100, L501.9520, L500.4050 ####[facility] [address] [place], [address] MCH (RBC) [Entitic mass] 24.2 pg Low 27.0-32.0 [facility] Comment on above: Performed By: #### L 506.1001, L100.0100, L501.9520, L500.4050 ####[facility] [address] [place], [address] MCHC (RBC) [Mass/Vol] 28.9 g/dL Low 32-36 [facility] Comment on above: Performed By: #### L 506.1001, L100.0100, L501.9520, L500.4050 ####[facility] [address] [place], [address] MCV (RBC) [Entitic vol] 83.8 fL Normal 81-99 [facility] Comment on above: Performed By: #### L 506.1001, L100.0100, L501.9520, L500.4050 ####[facility] [address] [place], [address] Monocytes/100 WBC (Bld) 7.4 % Normal 0-10 [facility] Comment on above: Performed By: #### L 506.1001, L100.0100, L501.9520, L500.4050 ####[facility] [address] [place], [address] Neutrophils/100 WBC (Bld) 57.9 % Normal 47-70 [facility] Comment on above: Performed By: #### L 506.1001, L100.0100, L501.9520, L500.4050 ####[facility] [address] [place], [address] Nucleated RBC (Bld) [#/Vol] 0 10*3/uL Normal 0-5 [facility] Comment on above: Performed By: #### L 506.1001, L100.0100, L501.9520, L500.4050 ####[facility] [address] [place], [address] Platelet mean volume (Bld) [Entitic vol] 11.1 fL Normal 6.2-12.0 [facility] Comment on above: Performed By: #### L 506.1001, L100.0100, L501.9520, L500.4050 ####[facility] [address] [place], [address] Platelets (Bld) [#/Vol] 244 10*3/uL Normal 150-450 [facility] Comment on above: Performed By: #### L 506.1001, L100.0100, L501.9520, L500.4050 ####[facility] [address] [place], [address] RBC (Bld) [#/Vol] 3.39 10*6/uL Low 4.2-5.[address] [facility] Comment on above: Performed By: #### L 506.1001, L100.0100, L501.9520, L500.4050 ####[facility] [address] [place], [address] RDW SD 44.8 fl High 35.1-43.9 [facility] Comment on above: Performed By: #### L 506.1001, L100.0100, L501.9520, L500.4050 ####[facility] [address] [place], [address] WBC (Bld) [#/Vol] 5.8 10*3/uL Normal 4.4-11.0 [facility] Comment on above: Performed By: #### L 506.1001, L100.0100, L501.9520, L500.4050 ####[facility] [address] [place], [address] Carbon dioxide, total [Moles /volume] in Central venous bloodOrdered By: Ysabel Ruffin on 12-29-2024 CO2 [Moles/Vol] 29.0 mmol/L 21.0-32.0 [facility] Chloride assayOrdered By: Wilman Ruffin on 12-29-2024 Chloride [Moles/Vol] 101 mmol/L 98-108 [facility] Comprehensive Metabolic Prof ilon 12-29-2024 Albumin [Mass/Vol] 3.8 g/dL Normal 3.5-5.0 [facility] Comment on above: Performed By: #### L 506.1001, L100.0100, L501.9520, L500.4050 ####[facility] [address] [place], [address] Albumin/Globulin [Mass ratio] 1.2 {ratio} Normal 0.9-2.4 [facility] Comment on above: Performed By: #### L 506.1001, L100.0100, L501.9520, L500.4050 ####[facility] [address] [place], [address] ALK PHOS 106 U/L High 35-104 [facility] Comment on above: Performed By: #### L 506.1001, L100.0100, L501.9520, L500.4050 ####[facility] [address] [place], [address] ALT [Catalytic activity/Vol] 9 U/L Normal <=34 [facility] Comment on above: Performed By: #### L 506.1001, L100.0100, L501.9520, L500.4050 ####[facility] [address] [place], [address] AST [Catalytic activity/Vol] 36 U/L High <=31 [facility] Comment on above: Performed By: #### L 506.1001, L100.0100, L501.9520, L500.4050 ####[facility] [address] [place], [address] BUN/CRE 20.8 RATIO High 10-20 [facility] Comment on above: Performed By: #### L 506.1001, L100.0100, L501.9520, L500.4050 ####[facility] [address] [place], [address] Calcium [Mass/Vol] 9.2 mg/dL Normal 7.6-11.0 [facility] Comment on above: Performed By: #### L 506.1001, L100.0100, L501.9520, L500.4050 ####[facility] [address] [place], [address] Chloride [Moles/Vol] 101 mmol/L Normal 98-108 [facility] Comment on above: Performed By: #### L 506.1001, L100.0100, L501.9520, L500.4050 ####[facility] [address] [place], [address] CO2 [Moles/Vol] 29.0 mmol/L Normal 21.0-32.0 [facility] Comment on above: Performed By: #### L 506.1001, L100.0100, L501.9520, L500.4050 ####[facility] [address] [place], [address] Creatinine [Mass/Vol] 0.83 mg/dL Normal 0.70-1.20 [facility] Comment on above: Performed By: #### L 506.1001, L100.0100, L501.9520, L500.4050 ####[facility] [address] [place], [address] GAP 9 Normal 5-15 [facility] Comment on above: Performed By: #### L 506.1001, L100.0100, L501.9520, L500.4050 ####[facility] [address] [place], [address] GFR/1.73 sq M.predicted among non-blacks MDRD (S/P/Bld) [Vol rate/Area] 82 mL/min/{1.73_m2} Normal >60 [facility] Comment on above: Result Comment: mL/m in/1.73m2 CKD-EPI Creatinine Equation (2020) Performed By: #### L 506.1001, L100.0100, L501.9520, L500.4050 ####[facility] [address] [place], [address] Globulin (S) [Mass/Vol] 3.3 g/dL Normal 2.2-4.2 [facility] Comment on above: Performed By: #### L 506.1001, L100.0100, L501.9520, L500.4050 ####[facility] [address] [place], [address] Glucose [Mass/Vol] 116 mg/dL High 70-99 [facility] Comment on above: Performed By: #### L 506.1001, L100.0100, L501.9520, L500.4050 ####[facility] [address] [place], [address] Potassium [Moles/Vol] 4.4 mmol/L Normal 3.3-5.1 [facility] Comment on above: Performed By: #### L 506.1001, L100.0100, L501.9520, L500.4050 ####[facility] [address] [place], [address] Sodium [Moles/Vol] 139 mmol/L Normal 133-145 [facility] Comment on above: Performed By: #### L 506.1001, L100.0100, L501.9520, L500.4050 ####[facility] [address] [place], [address] T BILI < 0.15 Normal 0.00-1.30 [facility] Comment on above: Performed By: #### L 506.1001, L100.0100, L501.9520, L500.4050 ####[facility] [address] [place], [address] T PROT 7.1 g/dL Normal 5.9-8.4 [facility] Comment on above: Performed By: #### L 506.1001, L100.0100, L501.9520, L500.4050 ####[facility] [address] [place], [address] Urea nitrogen [Mass/Vol] 17 mg/dL Normal 4-19 [facility] Comment on above: Performed By: #### L 506.1001, L100.0100, L501.9520, L500.4050 ####[facility] [address] [place], [address] ALB Normal 3.5-5.0 [facility] Comment on above: Result Comment: DUP Performed By: #### L 500.4050 ####[facility] [address] [place], [address] ALK PHOS Normal 35-104 [facility] Comment on above: Result Comment: DUP Performed By: #### L 500.4050 ####[facility] [address] [place], [address] ALT Normal <=34 [facility] Comment on above: Result Comment: DUP Performed By: #### L 500.4050 ####[facility] [address] [place], [address] AST Normal <=31 [facility] Comment on above: Result Comment: DUP Performed By: #### L 500.4050 ####[facility] [address] [place], [address] BUN Normal 4-19 [facility] Comment on above: Result Comment: DUP Performed By: #### L 500.4050 ####[facility] [address] [place], [address] BUN/CRE Normal 10-20 [facility] Comment on above: Result Comment: DUP Performed By: #### L 500.4050 ####[facility] [address] [place], [address] Calcium Normal 7.6-11.0 [facility] Comment on above: Result Comment: DUP Performed By: #### L 500.4050 ####[facility] [address] [place], [address] CL Normal 98-108 [facility] Comment on above: Result Comment: DUP Performed By: #### L 500.4050 ####[facility] [address] [place], [address] CO2 Normal 21.0-32.0 [facility] Comment on above: Result Comment: DUP Performed By: #### L 500.4050 ####[facility] [address] [place], [address] CREAT,SERUM Normal 0.70-1.20 [facility] Comment on above: Result Comment: DUP Performed By: #### L 500.4050 ####[facility] [address] [place], [address] eGFR Normal >60 [facility] Comment on above: Result Comment: DUP Performed By: #### L 500.4050 ####[facility] [address] [place], [address] GAP Normal 5-15 [facility] Comment on above: Result Comment: DUP Performed By: #### L 500.4050 ####[facility] [address] [place], [address] GLU Normal 70-99 [facility] Comment on above: Result Comment: DUP Performed By: #### L 500.4050 ####[facility] [address] [place], [address] Potassium Normal 3.3-5.1 [facility] Comment on above: Result Comment: DUP Performed By: #### L 500.4050 ####[facility] [address] [place], [address] T BILI Normal 0.00-1.30 [facility] Comment on above: Result Comment: DUP Performed By: #### L 500.4050 ####[facility] [address] [place], [address] T PROT Normal 5.9-8.4 [facility] Comment on above: Result Comment: DUP Performed By: #### L 500.4050 ####[facility] [address] [place], [address] Comprehensive Metabolic Profil Normal 133-145 [facility] Comment on above: Result Comment: DUP Performed By: #### L 500.4050 ####[facility] [address] [place], [address] Eosinophil percentageOrdered By: Ysabel Ruffin on 12-29-2024 Eosinophils/100 WBC (Bld) 3.5 % 0-5 [facility] Erythrocyte distribution wid th ratioOrdered By: Ysabel Ruffin on 12-29-2024 Erythrocyte distribution width (RBC) [Ratio] 14.6 % 11.6-14.6 [facility] Erythrocyte distribution wid th standard deviationOrdered By: Ysabel Ruffin on 12-29-2024 Erythrocyte distribution width (RBC) [Ratio] 44.8 fl High 35.1-43.9 [facility] Glomerular filtration rate ( GFR) estimation/1.73 sq m using serum, plasma, or whole bOrdered By: Ysabel Ruffin on 12-29-2024 GFR/1.73 sq M.predicted among non-blacks MDRD (S/P/Bld) [Vol rate/Area] 82 mL/min/{1.73_m2} >60 [facility] Comment on above: mL/min/1.73m2 CKD-EP I Creatinine Equation (2020) Hematocrit Auto (Bld) [Volum e fraction]Ordered By: Ysabel Ruffin on 12-29-2024 Hematocrit (Bld) [Volume fraction] 28.4 % Low 37-47 [facility] Hemoglobin measurementOrdere d By: Ysabel Ruffin on 12-29-2024 Hemoglobin (Bld) [Mass/Vol] 8.2 g/dL Low 12.0-15.0 [facility] Immature granulocytes/100 WB C Auto (Bld)Ordered By: Ysabel Ruffin on 12-29-2024 Immature granulocytes/100 WBC (Bld) 0.300 % 0.0-0.9 [facility] Comment on above: IG% - Immature Granu locytes (promyelocytes, myelocytes and metamyelocytes) > 1% indicates that a LEFT SHIFT is Present. Ketones Test strip Ql (U)Ord ered By: Ysabel Ruffin on 12-29-2024 Ketones Ql (U) Negative Negative [facility] Laboratory - Chemistry and C hemistry - challengeOrdered By: Ysabel Ruffin on 12-29-2024 AST [Catalytic activity/Vol] 36 U/L High <32 [facility] LevetiracetamOrdered By: Luis F Castro on 12-29-2024 levETIRAcetam [Mass/Vol] 66.1 ug/mL High 10.0-40.0 [facility] Comment on above: Performed at: [address] [id number] Director: Azalia Rosen MD, Phone: [phone] MCV (mean corpuscular volume ) determinationOrdered By: Ysabel Ruffin on 12-29-2024 MCV (RBC) [Entitic vol] 83.8 fL 81-99 [facility] Mean corpuscular hemoglobin (MCH) determinationOrdered By: Ysabel Ruffin on 12-29-2024 MCH (RBC) [Entitic mass] 24.2 pg Low 27.0-32.0 [facility] Mean corpuscular hemoglobin concentration (MCHC) determinationOrdered By: Ysabel Ruffin on 12-29-2024 MCHC (RBC) [Mass/Vol] 28.9 g/dL Low 32-36 [facility] Mean platelet volume determi nationOrdered By: Ysabel Ruffin on 12-29-2024 Platelet mean volume (Bld) [Entitic vol] 11.1 fL 6.2-12.0 [facility] Microscopic analysis of urin e for red blood cells (RBC)Ordered By: Ysabel Ruffin on 12-29-2024 Microscopic analysis of urine for red blood cells (RBC) 0 SEEN /hpf 0-5 [facility] Monocyte percentageOrdered B y: Ysabel Ruffin on 12-29-2024 Monocytes/100 WBC (Bld) 7.4 % 0-10 [facility] Mucus LM Ql (Urine sed)Order ed By: Ysabel Ruffin on 12-29-2024 Mucus Ql (Urine sed) 0 SEEN /hpf [facility] Neutrophil percentageOrdered By: Ysabel Ruffin on 12-29-2024 Neutrophils/100 WBC (Bld) 57.9 % 47-70 [facility] Nitrite Test strip Ql (U)Ord ered By: Ysabel Ruffin on 12-29-2024 Nitrite Ql (U) Positive High Negative [facility] Nucleated red blood cell per centageOrdered By: Ysabel Ruffin on 12-29-2024 Nucleated RBC/100 WBC (Bld) [Ratio] 0 % 0-5 [facility] Platelet countOrdered By: Wilman Ruffin on 12-29-2024 Platelets (Bld) [#/Vol] 244 10*3/uL 150-450 [facility] Potassium measurement (mass/ volume)Ordered By: Ysabel Ruffin on 12-29-2024 Potassium (Unsp spec) [Mass/Vol] 4.4 mmol/L 3.3-5.1 [facility] Protein Test strip Ql (U)Ord ered By: Ysabel Ruffin on 12-29-2024 Protein Ql (U) 15 mg/dl High Negative [facility] RBC Auto (Bld) [#/Vol]Ordere d By: Ysabel Ruffin on 12-29-2024 RBC (Bld) [#/Vol] 3.39 10*6/uL Low 4.2-5.[address] [facility] Serum creatinine measurement (mass/volume)Ordered By: Ysabel Ruffin on 12-29-2024 Creatinine [Mass/Vol] 0.83 mg/dL 0.70-1.20 [facility] Serum globulin measurementOr dered By: Ysabel Ruffin on 12-29-2024 Globulin (S) [Mass/Vol] 3.3 g/dL 2.2-4.2 [facility] Serum glucose measurement (m ass/volume)Ordered By: Ysabel Ruffin on 12-29-2024 Glucose [Mass/Vol] 116 mg/dL High 70-99 [facility] Serum or plasma alanine moran otransferase (ALT) measurementOrdered By: Ysabel Ruffin on 12-29-2024 ALT [Catalytic activity/Vol] 9 U/L <35 [facility] Serum or plasma albumin paddy urement (mass/volume)Ordered By: Ysabel Ruffin on 12-29-2024 Albumin [Mass/Vol] 3.8 g/dL 3.5-5.0 [facility] Serum or plasma albumin/glob ulin mass ratioOrdered By: Ysabel Ruffin on 12-29-2024 Albumin/Globulin [Mass ratio] 1.2 {ratio} 0.9-2.4 [facility] Serum or plasma alkaline jeffery sphatase measurementOrdered By: Ysabel Ruffin on 12-29-2024 ALP [Catalytic activity/Vol] 106 U/L High 35-104 [facility] Serum or plasma calcium paddy urement (mass/volume)Ordered By: Ysabel Ruffin on 12-29-2024 Calcium [Mass/Vol] 9.2 mg/dL 7.6-11.0 [facility] Serum or plasma urea nitroge n measurement (mass/volume)Ordered By: Ysabel Ruffin on 12-29-2024 Urea nitrogen [Mass/Vol] 17 mg/dL 4-19 [facility] Sodium levelOrdered By: Whitley Ruffin on 12-29-2024 Sodium [Moles/Vol] 139 mmol/L 133-145 [facility] Squamous epithelial cells de tection in urine sediment by light microscopyOrdered By: Ysabel Ruffin on 12-29-2024 Epithelial cells.squamous LM Ql (Urine sed) 0-5 SEEN /hpf 5-10 [facility] TSH DL <= 0.005 mIU/L QnOrde red By: Ysabel Ruffin on 12-29-2024 TSH Qn 2.880 uIU/mL 0.300-4.20 0 [facility] Thyroid Stim Hormone (TSH)on 12-29-2024 TSH 2.880 uIU/mL Normal 0.300-4.20 0 [facility] Comment on above: Performed By: #### L 506.1001, L100.0100, L501.9520, L500.4050 ####[facility] [address] [place], [address] Total proteinOrdered By: Young Ruffin on 12-29-2024 Protein [Mass/Vol] 7.1 g/dL 5.9-8.4 [facility] Transitional cells detection in urine sediment by light microscopyOrdered By: Ysabel Ruffin on 12-29-2024 Transitional cells LM Ql (Urine sed) 0-5 SEEN /hpf 0-5 [facility] Urinalysis, Completeon 12-29 EPI,TRANSITION 0-5 SEEN Normal 0-5 [facility] Comment on above: Order Comment: LU CTOR TO SPECIFY Performed By: #### L 400.0001, ####[facility] [address] [place] [place], [address] WBC 25-50 SEEN Normal 0-5 [facility] Comment on above: Order Comment: LU CTOR TO SPECIFY Performed By: #### L 400.0001, M1.0 ####[facility] [address] [place], [address] BACTERIA 3+ /hpf Normal None Seen [facility] Comment on above: Order Comment: LU CTOR TO SPECIFY Performed By: #### L 400.0001, M1.0 ####[facility] [address] [place], [address] EPI,SQUAMOUS 0-5 SEEN Normal 5-10 [facility] Comment on above: Order Comment: COLLE CTOR TO SPECIFY Performed By: #### L 400.0001, M100.2200 ####[facility] [address] [place], [address] BACTERIA Normal None Seen [facility] Comment on above: Order Comment: COLLE CTOR TO SPECIFY Result Comment: DUPL ICATE Performed By: #### L 400.0001 ####[facility] [address] [place], [address] BILIRUBIN URINE Normal Negative [facility] Comment on above: Order Comment: LU CTOR TO SPECIFY Result Comment: DUPL ICATE Performed By: #### L 400.0001 ####[facility] [address] [place], [address] Clarity (U) Normal Clear [facility] Comment on above: Order Comment: LU CTOR TO SPECIFY Result Comment: DUPL ICATE Performed By: #### L 400.0001 ####[facility] [address] [place], [address] Color (U) Normal Yellow [facility] Comment on above: Order Comment: LU CTOR TO SPECIFY Result Comment: DUPL ICATE Performed By: #### L 400.0001 ####[facility] [address] [place], [address] EPI,SQUAMOUS Normal 5-10 [facility] Comment on above: Order Comment: LU CTOR TO SPECIFY Result Comment: DUPL ICATE Performed By: #### L 400.0001 ####[facility] [address] [place], [address] GLUCOSE, UR Normal Normal [facility] Comment on above: Order Comment: COLLE CTOR TO SPECIFY Result Comment: DUPL ICATE Performed By: #### L 400.0001 ####[facility] [address] [place], [address] KETONE UR Normal Negative [facility] Comment on above: Order Comment: COLLE CTOR TO SPECIFY Result Comment: DUPL ICATE Performed By: #### L 400.0001 ####[facility] [address] [place], [address] LEUK ESTERASE Normal Negative [facility] Comment on above: Order Comment: COLLE CTOR TO SPECIFY Result Comment: DUPL ICATE Performed By: #### L 400.0001 ####[facility] [address] [place], [address] Mucus Ql (Urine sed) Normal [facility] Comment on above: Order Comment: COLLE CTOR TO SPECIFY Result Comment: DUPL ICATE Performed By: #### L 400.0001 ####[facility] [address] [place], [address] Mucus Ql (Urine sed) 0 SEEN Normal [facility] Comment on above: Order Comment: COLLE CTOR TO SPECIFY Performed By: #### L 400.0001, M100.2200 ####[facility] [address] [place], [address] Nitrite Ql (U) Normal Negative [facility] Comment on above: Order Comment: COLLE CTOR TO SPECIFY Result Comment: DUPL ICATE Performed By: #### L 400.0001 ####[facility] [address] [place], [address] OCCULT BLOOD-UR Normal Negative [facility] Comment on above: Order Comment: COLLE CTOR TO SPECIFY Result Comment: DUPL ICATE Performed By: #### L 400.0001 ####[facility] [address] [place], [address] pH UR Normal 5.0 - 8.0 [facility] Comment on above: Order Comment: COLLE CTOR TO SPECIFY Result Comment: DUPL ICATE Performed By: #### L 400.0001 ####[facility] [address] [place], [address] PROT DIPSTX Normal Negative [facility] Comment on above: Order Comment: COLLE CTOR TO SPECIFY Result Comment: DUPL ICATE Performed By: #### L 400.0001 ####[facility] [address] [place], [address] RBC Normal 0-5 [facility] Comment on above: Order Comment: COLLE CTOR TO SPECIFY Result Comment: DUPL ICATE Performed By: #### L 400.0001 ####[facility] [address] [place], [address] RBC 0 SEEN Normal 0-5 [facility] Comment on above: Order Comment: COLLE CTOR TO SPECIFY Performed By: #### L 400.0001, M100.2200 ####[facility] [address] [place], [address] SP.GR. DIPSTX Normal 1.002-1.03 0 [facility] Comment on above: Order Comment: COLLE CTOR TO SPECIFY Result Comment: DUPL ICATE Performed By: #### L 400.0001 ####[facility] [address] [place], [address] UR Preservative Normal [facility] Comment on above: Order Comment: COLLE CTOR TO SPECIFY Result Comment: DUPL ICATE Performed By: #### L 400.0001 ####[facility] [address] [place], [address] UROBILI Normal Normal [facility] Comment on above: Order Comment: COLLE CTOR TO SPECIFY Result Comment: DUPL ICATE Performed By: #### L 400.0001 ####[facility] [address] [place], [address] WBC Normal 0-5 [facility] Comment on above: Order Comment: COLLE CTOR TO SPECIFY Result Comment: DUPL ICATE Performed By: #### L 400.0001 ####[facility] [address] [place], [address] Urine clarityOrdered By: Young Ruffin on 12-29-2024 Clarity (U) Sl. Cloudy Clear [facility] Urine color determinationOrd ered By: Ysabel Ruffin on 12-29-2024 Color (U) Yellow Yellow [facility] Urine cultureOrdered By: Young Ruffin on 12-29-2024 Bacteria identified Cx Nom (U) Escherichia coli Abnormal [facility] Urine glucose detectionOrder ed By: Ysabel Ruffin on 12-29-2024 Glucose Ql (U) Normal mg/dl Normal [facility] Urine leukocyte esterase det ection by dipstickOrdered By: Ysabel Ruffin on 12-29-2024 Leukocyte esterase Test strip Ql (U) 500 /ul High Negative [facility] Urine pHOrdered By: Ysabel Mendoza indortiz on 12-29-2024 pH (U) 6.0 [pH] 5.0 - 8.0 [facility] Urine sediment bacteria coun t by microscopy (number/high power field)Ordered By: Ysabel Ruffin on 12-29-2024 Bacteria LM.HPF (Urine sed) [#/Area] 3 /[HPF] None Seen [facility] Urine specific gravity measu rementOrdered By: Ysabel Ruffin on 12-29-2024 Specific gravity (U) [Rel density] 1.010 1.002-1.03 0 [facility] Urine urobilinogen measureme ntOrdered By: Ysabel Ruffin on 12-29-2024 Urobilinogen Ql (U) Normal mg/dl Normal [facility] Venous blood ammonia measure mentOrdered By: Chapincito Castro on 12-29-2024 Ammonia (P) [Moles/Vol] 36.3 umol/L 11-51 [facility] Vitamin D,25 Hydroxyon 12-29 Vitamin D 25-OH 13.4 ng/mL Low 30-100 [facility] Comment on above: Result Comment: Ethel min D StatusDeficiency: <20 ng/mL (50nmol/L)Insufficiency: 20-30 ng/mL (50-75 nmol/L)Sufficiency: 30-100 ng/mL (75-250 nmol/L)Toxicity: >100 ng/mL (>250 nmol/L) Performed By: #### L 506.1001, L100.0100, L501.9520, L500.4050 ####[facility] [address] [place], [address] White blood cell (WBC) count Ordered By: Ysabel Ruffin on 12-29-2024 WBC (Bld) [#/Vol] 5.8 10*3/uL 4.4-11.0 [facility] White blood cell countOrdere d By: Ysabel Ruffin on 12-29-2024 White blood cell count 25-50 SEEN /hpf 0-5 [facility] Internal Medicine Office Vis iton 12-26-2024 Internal Medicine Office Visit Normal [facility] Emergency Department Summary on 11-20-2024 Emergency Department Summary Normal [facility] Hand Min 3 Viewson 5 Hand Min 3 Views Normal [facility] Wrist min 3 Viewson 11-21-19 25 Wrist min 3 Views Normal [facility] Absolute lymphocyte countOrd ered By: Oli Shearer on 11-14-2024 Lymphocytes Auto (Unsp spec) [#/Vol] 1.57 10*3/uL 0.83-4.51 [facility] Absolute neutrophil countOrd ered By: Oli Shearer on 11-14-2024 Neutrophils (Bld) [#/Vol] 4.5 10*3/uL 2.0-7.7 [facility] Automated lymphocyte count a s percentage of total leukocytesOrdered By: Oli Shearer on 11-14-2024 Lymphocytes/100 WBC Auto (Unsp spec) 23.3 % 19-41 [facility] Basophil percentageOrdered B y: Oli Shearer on 11-14-2024 Basophils/100 WBC (Bld) 0.4 % 0-1 [facility] Brain/Head W/WO Contraston 0 11-14-2024 Brain/Head W/WO Contrast Normal [facility] CBC W/Diff, Automatedon 04-2 Absolute Lymph 1.57 X10 3/uL Normal 0.83-4.51 [facility] Comment on above: Performed By: #### L 100.0100 ####[facility] [address] [place], [address] Absolute Neut 4.5 X10 3/uL Normal 2.0-7.7 [facility] Comment on above: Performed By: #### L 100.0100 ####[facility] [address] [place], [address] Basophils/100 WBC (Bld) 0.4 % Normal 0-1 [facility] Comment on above: Performed By: #### L 100.0100 ####[facility] [address] [place], [address] Eosinophils/100 WBC (Bld) 1.9 % Normal 0-5 [facility] Comment on above: Performed By: #### L 100.0100 ####[facility] [address] [place], [address] Erythrocyte distribution width (RBC) [Ratio] 14.6 % Normal 11.6-14.6 [facility] Comment on above: Performed By: #### L 100.0100 ####[facility] [address] [place], [address] Hematocrit (Bld) [Volume fraction] 28.7 % Low 37-47 [facility] Comment on above: Performed By: #### L 100.0100 ####[facility] [address] [place], [address] Hemoglobin (Bld) [Mass/Vol] 8.4 g/dL Low 12.0-15.0 [facility] Comment on above: Performed By: #### L 100.0100 ####[facility] [address] [place], [address] IG% 0.300 Normal 0.0-0.9 [facility] Comment on above: Result Comment: IG% - Immature Granulocytes (promyelocytes, myelocytes andmetamyelocytes) > 1% indicates that a LEFT SHIFT is Present. Performed By: #### L 100.0100 ####[facility] [address] [place], [address] Lymphocytes/100 WBC (Bld) 23.3 % Normal 19-41 [facility] Comment on above: Performed By: #### L 100.0100 ####[facility] [address] [place], [address] MCH (RBC) [Entitic mass] 24.9 pg Low 27.0-32.0 [facility] Comment on above: Performed By: #### L 100.0100 ####[facility] [address] [place], [address] MCHC (RBC) [Mass/Vol] 29.3 g/dL Low 32-36 [facility] Comment on above: Performed By: #### L 100.0100 ####[facility] [address] [place], [address] MCV (RBC) [Entitic vol] 85.2 fL Normal 81-99 [facility] Comment on above: Performed By: #### L 100.0100 ####[facility] [address] [place], [address] Monocytes/100 WBC (Bld) 7.1 % Normal 0-10 [facility] Comment on above: Performed By: #### L 100.0100 ####[facility] [address] [place], [address] Neutrophils/100 WBC (Bld) 67.0 % Normal 47-70 [facility] Comment on above: Performed By: #### L 100.0100 ####[facility] [address] [place], [address] Nucleated RBC (Bld) [#/Vol] 0 10*3/uL Normal 0-5 [facility] Comment on above: Performed By: #### L 100.0100 ####[facility] [address] [place], [address] Platelet mean volume (Bld) [Entitic vol] 9.9 fL Normal 6.2-12.0 [facility] Comment on above: Performed By: #### L 100.0100 ####[facility] [address] [place], [address] Platelets (Bld) [#/Vol] 195 10*3/uL Normal 150-450 [facility] Comment on above: Performed By: #### L 100.0100 ####[facility] [address] [place], [address] RBC (Bld) [#/Vol] 3.37 10*6/uL Low 4.2-5.[address] [facility] Comment on above: Performed By: #### L 100.0100 ####[facility] [address] [place], [address] RDW SD 45.1 fl High 35.1-43.9 [facility] Comment on above: Performed By: #### L 100.0100 ####[facility] [address] [place], [address] WBC (Bld) [#/Vol] 6.7 10*3/uL Normal 4.4-11.0 [facility] Comment on above: Performed By: #### L 100.0100 ####[facility] [address] [place], [address] Eosinophil percentageOrdered By: Oli Shearer on 11-14-2024 Eosinophils/100 WBC (Bld) 1.9 % 0-5 [facility] Erythrocyte distribution wid th ratioOrdered By: Oli Shearer on 11-14-2024 Erythrocyte distribution width (RBC) [Ratio] 14.6 % 11.6-14.6 [facility] Erythrocyte distribution wid th standard deviationOrdered By: Oli Shearer on 11-14-2024 Erythrocyte distribution width (RBC) [Ratio] 45.1 fl High 35.1-43.9 [facility] Hematocrit Auto (Bld) [Volum e fraction]Ordered By: Oli Shearer on 11-14-2024 Hematocrit (Bld) [Volume fraction] 28.7 % Low 37-47 [facility] Hemoglobin measurementOrdere d By: Oli Shearer on 11-14-2024 Hemoglobin (Bld) [Mass/Vol] 8.4 g/dL Low 12.0-15.0 [facility] Immature granulocytes/100 WB C Auto (Bld)Ordered By: Oli Shearer on 11-14-2024 Immature granulocytes/100 WBC (Bld) 0.300 % 0.0-0.9 [facility] Comment on above: IG% - Immature Granu locytes (promyelocytes, myelocytes and metamyelocytes) > 1% indicates that a LEFT SHIFT is Present. MCV (mean corpuscular volume ) determinationOrdered By: Oli Shearer on 11-14-2024 MCV (RBC) [Entitic vol] 85.2 fL 81-99 [facility] Mean corpuscular hemoglobin (MCH) determinationOrdered By: Oli Shearer on 11-14-2024 MCH (RBC) [Entitic mass] 24.9 pg Low 27.0-32.0 [facility] Mean corpuscular hemoglobin concentration (MCHC) determinationOrdered By: Oli Shearer on 11-14-2024 MCHC (RBC) [Mass/Vol] 29.3 g/dL Low 32-36 [facility] Mean platelet volume determi nationOrdered By: Oli Shearer on 11-14-2024 Platelet mean volume (Bld) [Entitic vol] 9.9 fL 6.2-12.0 [facility] Monocyte percentageOrdered B y: Oli Shearer on 11-14-2024 Monocytes/100 WBC (Bld) 7.1 % 0-10 [facility] Neutrophil percentageOrdered By: Oli Shearer on 11-14-2024 Neutrophils/100 WBC (Bld) 67.0 % 47-70 [facility] Nucleated red blood cell per centageOrdered By: Oli Shearer on 11-14-2024 Nucleated RBC/100 WBC (Bld) [Ratio] 0 % 0-5 [facility] Platelet countOrdered By: Michael castillo Manfred on 11-14-2024 Platelets (Bld) [#/Vol] 195 10*3/uL 150-450 [facility] RBC Auto (Bld) [#/Vol]Ordere d By: Oli Shearer on 11-14-2024 RBC (Bld) [#/Vol] 3.37 10*6/uL Low 4.2-5.[address] [facility] White blood cell (WBC) count Ordered By: Oli Shearer on 11-14-2024 WBC (Bld) [#/Vol] 6.7 10*3/uL 4.4-11.0 [facility] Internal Medicine Office Vis iton 11-12-2024 Internal Medicine Office Visit Normal [facility] Urine Cultureon 09-03-2024 URC Normal [facility] Comment on above: Performed By: #### L 400.0001, M100.2200 ####[facility] [address] [place], [address] Bilirubin Test strip Ql (U)O rdered By: Luke Tirado on 09-01-2024 Bilirubin Ql (U) Negative Negative [facility] Ketones Test strip Ql (U)Ord ered By: Luke Tirado on 09-01-2024 Ketones Ql (U) 5 mg/dl High Negative [facility] Microscopic analysis of urin e for red blood cells (RBC)Ordered By: Luke Tirado on 09-01-2024 Microscopic analysis of urine for red blood cells (RBC) 0-5 SEEN /hpf 0-5 [facility] Mucus LM Ql (Urine sed)Order ed By: Luke Tirado on 09-01-2024 Mucus Ql (Urine sed) 0 SEEN /hpf [facility] Nitrite Test strip Ql (U)Ord ered By: Luke Tirado on 09-01-2024 Nitrite Ql (U) Positive High Negative [facility] Protein Test strip Ql (U)Ord ered By: Luke Tirado on 09-01-2024 Protein Ql (U) 30 mg/dl High Negative [facility] Squamous epithelial cells de tection in urine sediment by light microscopyOrdered By: Luke Tirado on 09-01-2024 Epithelial cells.squamous LM Ql (Urine sed) 0-5 SEEN /hpf 5-10 [facility] Urinalysis, Completeon 09-01 BACTERIA 1+ /hpf Normal None Seen [facility] Comment on above: Order Comment: Micro scopic field is filled. Other elements may beobscured.CLEAN CATCH Performed By: #### L 400.0001, M100.2200 ####[facility] [address] [place], [address] EPI,SQUAMOUS 0-5 SEEN Normal 5-10 [facility] Comment on above: Order Comment: Micro scopic field is filled. Other elements may beobscured.CLEAN CATCH Performed By: #### L 400.0001, M1.0 ####[facility] [address] [place], [address] RBC 0-5 SEEN Normal 0-5 [facility] Comment on above: Order Comment: Micro scopic field is filled. Other elements may beobscured.CLEAN CATCH Performed By: #### L 400.0001, M1.0 ####[facility] [address] [place], [address] WBC >100 SEEN Normal 0-5 [facility] Comment on above: Order Comment: Micro scopic field is filled. Other elements may beobscured.CLEAN CATCH Performed By: #### L 400.0001, M100.2200 ####[facility] [address] [place], [address] Mucus Ql (Urine sed) 0 SEEN Normal [facility] Comment on above: Order Comment: Micro scopic field is filled. Other elements may beobscured.CLEAN CATCH Performed By: #### L 400.0001, M100.2200 ####[facility] [address] [place], [address] Urine clarityOrdered By: Juan Diego Tirado on 09-01-2024 Clarity (U) Cloudy Clear [facility] Urine color determinationOrd ered By: Luke Tirado on 09-01-2024 Color (U) Yellow Yellow [facility] Urine cultureOrdered By: Juan Diego Tirado on 09-01-2024 Bacteria identified Cx Nom (U) Staphylococcus lugdunensis Abnormal [facility] Urine glucose detectionOrder ed By: Luke Tirado on 09-01-2024 Glucose Ql (U) Normal mg/dl Normal [facility] Urine leukocyte esterase det ection by dipstickOrdered By: Luke Tirado on 09-01-2024 Leukocyte esterase Test strip Ql (U) 500 /ul High Negative [facility] Urine pHOrdered By: Nusrat Tirado on 09-01-2024 pH (U) 6.0 [pH] 5.0 - 8.0 [facility] Urine sediment bacteria coun t by microscopy (number/high power field)Ordered By: Luke Tirado on 09-01-2024 Bacteria LM.HPF (Urine sed) [#/Area] 1 /[HPF] None Seen [facility] Urine specific gravity measu rementOrdered By: Luke Tirado on 09-01-2024 Specific gravity (U) [Rel density] 1.015 1.002-1.03 0 [facility] Urine urobilinogen measureme ntOrdered By: Luke Tirado on 09-01-2024 Urobilinogen Ql (U) Normal mg/dl Normal [facility] White blood cell countOrdere d By: Luke Tirado on 09-01-2024 White blood cell count >100 SEEN /hpf 0-5 [facility] Internal Medicine Office Vis iton 08-28-2024 Internal Medicine Office Visit Normal [facility] Basic Metabolic Profile (BMP )on 08-17-2024 BUN Normal 7-18 [facility] Comment on above: Result Comment: Canc elled via OM: Order cancelled - Patient discharged Performed By: #### L 500.2500, L100.0100 ####[facility] [address] [place], [address] BUN/CRE Normal 10-20 [facility] Comment on above: Result Comment: Canc elled via OM: Order cancelled - Patient discharged Performed By: #### L 500.2500, L100.0100 ####[facility] [address] [place], [address] CA,Total Normal 8.5-10.1 [facility] Comment on above: Result Comment: Canc elled via OM: Order cancelled - Patient discharged Performed By: #### L 500.2500, L100.0100 ####[facility] [address] [place], [address] CL Normal 98-107 [facility] Comment on above: Result Comment: Canc elled via OM: Order cancelled - Patient discharged Performed By: #### L 500.2500, L100.0100 ####[facility] [address] [place], [address] CO2 Normal 21.0-32.0 [facility] Comment on above: Result Comment: Canc elled via OM: Order cancelled - Patient discharged Performed By: #### L 500.2500, L100.0100 ####[facility] [address] [place], [address] CREAT,SERUM Normal 0.55-1.02 [facility] Comment on above: Result Comment: Canc elled via OM: Order cancelled - Patient discharged Performed By: #### L 500.2500, L100.0100 ####[facility] [address] [place], [address] EST GFR Normal >60 [facility] Comment on above: Result Comment: Canc elled via OM: Order cancelled - Patient discharged Performed By: #### L 500.2500, L100.0100 ####[facility] [address] [place], [address] EST GFR - AA Normal >60 [facility] Comment on above: Result Comment: Canc elled via OM: Order cancelled - Patient discharged Performed By: #### L 500.2500, L100.0100 ####[facility] [address] [place], [address] GAP Normal 5-15 [facility] Comment on above: Result Comment: Canc elled via OM: Order cancelled - Patient discharged Performed By: #### L 500.2500, L100.0100 ####[facility] [address] [place], [address] GLU Normal 74-106 [facility] Comment on above: Result Comment: Canc elled via OM: Order cancelled - Patient discharged Performed By: #### L 500.2500, L100.0100 ####[facility] [address] [place], [address] Potassium Normal 3.5-5.1 [facility] Comment on above: Result Comment: Canc elled via OM: Order cancelled - Patient discharged Performed By: #### L 500.2500, L100.0100 ####[facility] [address] [place], [address] Basic Metabolic Profile (BMP) Normal 136-145 [facility] Comment on above: Result Comment: Canc elled via OM: Order cancelled - Patient discharged Performed By: #### L 500.2500, L100.0100 ####[facility] [address] [place], [address] CBC W/Diff, Automatedon 07-24 Absolute Neut Normal 2.0-7.7 [facility] Comment on above: Result Comment: Canc elled via OM: Order cancelled - Patient discharged Performed By: #### L 500.2500, L100.0100 ####[facility] [address] [place], [address] HCT Normal 37-47 [facility] Comment on above: Result Comment: Canc elled via OM: Order cancelled - Patient discharged Performed By: #### L 500.2500, L100.0100 ####[facility] [address] [place], [address] HGB Normal 12.0-15.0 [facility] Comment on above: Result Comment: Canc elled via OM: Order cancelled - Patient discharged Performed By: #### L 500.2500, L100.0100 ####[facility] [address] [place], [address] MCH Normal 27.0-32.0 [facility] Comment on above: Result Comment: Canc elled via OM: Order cancelled - Patient discharged Performed By: #### L 500.2500, L100.0100 ####[facility] [address] [place], [address] MCHC Normal 32-36 [facility] Comment on above: Result Comment: Canc elled via OM: Order cancelled - Patient discharged Performed By: #### L 500.2500, L100.0100 ####[facility] [address] [place], [address] MCV Normal 81-99 [facility] Comment on above: Result Comment: Canc elled via OM: Order cancelled - Patient discharged Performed By: #### L 500.2500, L100.0100 ####[facility] [address] [place], [address] NEUT% Normal 47-70 [facility] Comment on above: Result Comment: Canc elled via OM: Order cancelled - Patient discharged Performed By: #### L 500.2500, L100.0100 ####[facility] [address] [place], [address] PLT Normal 150-450 [facility] Comment on above: Result Comment: Canc elled via OM: Order cancelled - Patient discharged Performed By: #### L 500.2500, L100.0100 ####[facility] [address] [place], [address] RBC Normal 4.2-5.4 [facility] Comment on above: Result Comment: Canc elled via OM: Order cancelled - Patient discharged Performed By: #### L 500.2500, L100.0100 ####[facility] [address] [place], [address] RDW CV Normal 11.6-14.6 [facility] Comment on above: Result Comment: Canc elled via OM: Order cancelled - Patient discharged Performed By: #### L 500.2500, L100.0100 ####[facility] [address] [place], [address] RDW SD Normal 35.1-43.9 [facility] Comment on above: Result Comment: Canc elled via OM: Order cancelled - Patient discharged Performed By: #### L 500.2500, L100.0100 ####[facility] [address] [place], [address] WBC Normal 4.4-11.0 [facility] Comment on above: Result Comment: Canc elled via OM: Order cancelled - Patient discharged Performed By: #### L 500.2500, L100.0100 ####[facility] [address] [place], [address] Basic Metabolic Profile (BMP )on 08-16-2024 BUN Normal 7-18 [facility] Comment on above: Result Comment: Canc elled via OM: Order cancelled - Patient discharged Performed By: #### L 100.0100, L500.2500 ####[facility] [address] [place], [address] BUN/CRE Normal 10-20 [facility] Comment on above: Result Comment: Canc elled via OM: Order cancelled - Patient discharged Performed By: #### L 100.0100, L500.2500 ####[facility] [address] [place], [address] CA,Total Normal 8.5-10.1 [facility] Comment on above: Result Comment: Canc elled via OM: Order cancelled - Patient discharged Performed By: #### L 100.0100, L500.2500 ####[facility] [address] [place], [address] CL Normal 98-107 [facility] Comment on above: Result Comment: Canc elled via OM: Order cancelled - Patient discharged Performed By: #### L 100.0100, L500.2500 ####[facility] [address] [place], [address] CO2 Normal 21.0-32.0 [facility] Comment on above: Result Comment: Canc elled via OM: Order cancelled - Patient discharged Performed By: #### L 100.0100, L500.2500 ####[facility] [address] [place], [address] CREAT,SERUM Normal 0.55-1.02 [facility] Comment on above: Result Comment: Canc elled via OM: Order cancelled - Patient discharged Performed By: #### L 100.0100, L500.2500 ####[facility] [address] [place], [address] EST GFR Normal >60 [facility] Comment on above: Result Comment: Canc elled via OM: Order cancelled - Patient discharged Performed By: #### L 100.0100, L500.2500 ####[facility] [address] [place], [address] EST GFR - AA Normal >60 [facility] Comment on above: Result Comment: Canc elled via OM: Order cancelled - Patient discharged Performed By: #### L 100.0100, L500.2500 ####[facility] [address] [place], [address] GAP Normal 5-15 [facility] Comment on above: Result Comment: Canc elled via OM: Order cancelled - Patient discharged Performed By: #### L 100.0100, L500.2500 ####[facility] [address] [place], [address] GLU Normal 74-106 [facility] Comment on above: Result Comment: Canc elled via OM: Order cancelled - Patient discharged Performed By: #### L 100.0100, L500.2500 ####[facility] [address] [place], [address] Potassium Normal 3.5-5.1 [facility] Comment on above: Result Comment: Canc elled via OM: Order cancelled - Patient discharged Performed By: #### L 100.0100, L500.2500 ####[facility] [address] [place], [address] Basic Metabolic Profile (BMP) Normal 136-145 [facility] Comment on above: Result Comment: Canc elled via OM: Order cancelled - Patient discharged Performed By: #### L 100.0100, L500.2500 ####[facility] [address] [place], [address] CBC W/Diff, Automatedon 01-2 Absolute Neut Normal 2.0-7.7 [facility] Comment on above: Result Comment: Canc elled via OM: Order cancelled - Patient discharged Performed By: #### L 100.0100, L500.2500 ####[facility] [address] [place], [address] HCT Normal 37-47 [facility] Comment on above: Result Comment: Canc elled via OM: Order cancelled - Patient discharged Performed By: #### L 100.0100, L500.2500 ####[facility] [address] [place], [address] HGB Normal 12.0-15.0 [facility] Comment on above: Result Comment: Canc elled via OM: Order cancelled - Patient discharged Performed By: #### L 100.0100, L500.2500 ####[facility] [address] [place], [address] MCH Normal 27.0-32.0 [facility] Comment on above: Result Comment: Canc elled via OM: Order cancelled - Patient discharged Performed By: #### L 100.0100, L500.2500 ####[facility] [address] [place], [address] MCHC Normal 32-36 [facility] Comment on above: Result Comment: Canc elled via OM: Order cancelled - Patient discharged Performed By: #### L 100.0100, L500.2500 ####[facility] [address] [place], [address] MCV Normal 81-99 [facility] Comment on above: Result Comment: Canc elled via OM: Order cancelled - Patient discharged Performed By: #### L 100.0100, L500.2500 ####[facility] [address] [place], [address] NEUT% Normal 47-70 [facility] Comment on above: Result Comment: Canc elled via OM: Order cancelled - Patient discharged Performed By: #### L 100.0100, L500.2500 ####[facility] [address] [place], [address] PLT Normal 150-450 [facility] Comment on above: Result Comment: Canc elled via OM: Order cancelled - Patient discharged Performed By: #### L 100.0100, L500.2500 ####[facility] [address] [place], [address] RBC Normal 4.2-5.4 [facility] Comment on above: Result Comment: Canc elled via OM: Order cancelled - Patient discharged Performed By: #### L 100.0100, L500.2500 ####[facility] [address] [place], [address] RDW CV Normal 11.6-14.6 [facility] Comment on above: Result Comment: Canc elled via OM: Order cancelled - Patient discharged Performed By: #### L 100.0100, L500.2500 ####[facility] [address] [place], [address] RDW SD Normal 35.1-43.9 [facility] Comment on above: Result Comment: Canc elled via OM: Order cancelled - Patient discharged Performed By: #### L 100.0100, L500.2500 ####[facility] [address] [place], [address] WBC Normal 4.4-11.0 [facility] Comment on above: Result Comment: Canc elled via OM: Order cancelled - Patient discharged Performed By: #### L 100.0100, L500.2500 ####[facility] [address] [place], [address] Absolute lymphocyte countOrd ered By: Nick Romano on 08-15-2024 Lymphocytes Auto (Unsp spec) [#/Vol] 2.39 10*3/uL 0.83-4.51 [facility] Automated lymphocyte count a s percentage of total leukocytesOrdered By: Nick Romano on 08-15-2024 Lymphocytes/100 WBC Auto (Unsp spec) 35.0 % 19-41 [facility] BRCon 08-15-2024 RC Normal [facility] Comment on above: Result Comment: [id number] OP RC TRANSFUSED 08/15/24 1153 Performed By: #### B , [facility] ####[facility] [address] [place], [address] Basic Metabolic Profile (BMP )on 08-15-2024 BUN/CRE 15.2 RATIO Normal 10-20 [facility] Comment on above: Performed By: #### L 501.5200, L100.0100, L500.2500 ####[facility] [address] [place], [address] CA,Total 8.7 mg/dL Normal 8.5-10.1 [facility] Comment on above: Performed By: #### L 501.5200, L100.0100, L500.2500 ####[facility] [address] [place], [address] Chloride [Moles/Vol] 103 mmol/L Normal 98-107 [facility] Comment on above: Performed By: #### L 501.5200, L100.0100, L500.2500 ####[facility] [address] [place], [address] CO2 [Moles/Vol] 30.0 mmol/L Normal 21.0-32.0 [facility] Comment on above: Performed By: #### L 501.5200, L100.0100, L500.2500 ####[facility] [address] [place], [address] Creatinine [Mass/Vol] 0.86 mg/dL Normal 0.55-1.02 [facility] Comment on above: Result Comment: The validity of the calculated GFR GFRAA in patients over70 years has not been determined. Clinical correlation isessential. Performed By: #### L 501.5200, L100.0100, L500.2500 ####[facility] [address] [place], [address] ECRCL 99.03 ml/min Normal [facility] Comment on above: Performed By: #### L 501.5200, L100.0100, L500.2500 ####[facility] [address] [place], [address] EST GFR - AA 88 mL/min Normal >60 [facility] Comment on above: Result Comment: Afri can [place] GFR Calc Performed By: #### L 501.5200, L100.0100, L500.2500 ####[facility] [address] [place], [address] GAP 4 Low 5-15 [facility] Comment on above: Performed By: #### L 501.5200, L100.0100, L500.2500 ####[facility] [address] [place], [address] GFR/1.73 sq M.predicted among non-blacks MDRD (S/P/Bld) [Vol rate/Area] 72 mL/min/{1.73_m2} Normal >60 [facility] Comment on above: Result Comment: Non- GFR Calc Performed By: #### L 501.5200, L100.0100, L500.2500 ####[facility] [address] [place], [address] Glucose [Mass/Vol] 95 mg/dL Normal 74-106 [facility] Comment on above: Performed By: #### L 501.5200, L100.0100, L500.2500 ####[facility] [address] [place], [address] Potassium [Moles/Vol] 4.4 mmol/L Normal 3.5-5.1 [facility] Comment on above: Performed By: #### L 501.5200, L100.0100, L500.2500 ####[facility] [address] [place], [address] Sodium [Moles/Vol] 137 mmol/L Normal 136-145 [facility] Comment on above: Performed By: #### L 501.5200, L100.0100, L500.2500 ####[facility] [address] [place], [address] Urea nitrogen [Mass/Vol] 13 mg/dL Normal 7-18 [facility] Comment on above: Performed By: #### L 501.5200, L100.0100, L500.2500 ####[facility] [address] [place], [address] Basophil percentageOrdered B y: Nicksven Romano on 08-15-2024 Basophils/100 WBC (Bld) 0.4 % 0-1 [facility] CBC W/Diff, Automatedon 07-24 Absolute Lymph 2.39 X10 3/uL Normal 0.83-4.51 [facility] Comment on above: Performed By: #### L 501.5200, L100.0100, L500.2500 ####[facility] [address] [place], [address] Absolute Neut 3.7 X10 3/uL Normal 2.0-7.7 [facility] Comment on above: Performed By: #### L 501.5200, L100.0100, L500.2500 ####[facility] [address] [place], [address] Basophils/100 WBC (Bld) 0.4 % Normal 0-1 [facility] Comment on above: Performed By: #### L 501.5200, L100.0100, L500.2500 ####[facility] [address] [place], [address] Eosinophils/100 WBC (Bld) 3.7 % Normal 0-5 [facility] Comment on above: Performed By: #### L 501.5200, L100.0100, L500.2500 ####[facility] [address] [place], [address] Erythrocyte distribution width (RBC) [Ratio] 17.7 % High 11.6-14.6 [facility] Comment on above: Performed By: #### L 501.5200, L100.0100, L500.2500 ####[facility] [address] [place], [address] Hematocrit (Bld) [Volume fraction] 25.1 % Low 37-47 [facility] Comment on above: Performed By: #### L 501.5200, L100.0100, L500.2500 ####[facility] [address] [place], [address] Hemoglobin (Bld) [Mass/Vol] 7.0 g/dL Low 12.0-15.0 [facility] Comment on above: Performed By: #### L 501.5200, L100.0100, L500.2500 ####[facility] [address] [place], [address] IG% 0.100 Normal 0.0-0.9 [facility] Comment on above: Result Comment: IG% - Immature Granulocytes (promyelocytes, myelocytes andmetamyelocytes) > 1% indicates that a LEFT SHIFT is Present. Performed By: #### L 501.5200, L100.0100, L500.2500 ####[facility] [address] [place], [address] Lymphocytes/100 WBC (Bld) 35.0 % Normal 19-41 [facility] Comment on above: Performed By: #### L 501.5200, L100.0100, L500.2500 ####[facility] [address] [place], [address] MCH (RBC) [Entitic mass] 22.5 pg Low 27.0-32.0 [facility] Comment on above: Performed By: #### L 501.5200, L100.0100, L500.2500 ####[facility] [address] [place], [address] MCHC (RBC) [Mass/Vol] 27.9 g/dL Low 32-36 [facility] Comment on above: Performed By: #### L 501.5200, L100.0100, L500.2500 ####[facility] [address] [place], [address] MCV (RBC) [Entitic vol] 80.7 fL Low 81-99 [facility] Comment on above: Performed By: #### L 501.5200, L100.0100, L500.2500 ####[facility] [address] [place], [address] Monocytes/100 WBC (Bld) 7.3 % Normal 0-10 [facility] Comment on above: Performed By: #### L 501.5200, L100.0100, L500.2500 ####[facility] [address] [place], [address] Neutrophils/100 WBC (Bld) 53.5 % Normal 47-70 [facility] Comment on above: Performed By: #### L 501.5200, L100.0100, L500.2500 ####[facility] [address] [place], [address] Nucleated RBC (Bld) [#/Vol] 0 10*3/uL Normal 0-5 [facility] Comment on above: Performed By: #### L 501.5200, L100.0100, L500.2500 ####[facility] [address] [place], [address] Platelet mean volume (Bld) [Entitic vol] 10.4 fL Normal 6.2-12.0 [facility] Comment on above: Performed By: #### L 501.5200, L100.0100, L500.2500 ####[facility] [address] [place], [address] Platelets (Bld) [#/Vol] 226 10*3/uL Normal 150-450 [facility] Comment on above: Performed By: #### L 501.5200, L100.0100, L500.2500 ####[facility] [address] [place], [address] RBC (Bld) [#/Vol] 3.11 10*6/uL Low 4.2-5.[address] [facility] Comment on above: Performed By: #### L 501.5200, L100.0100, L500.2500 ####[facility] [address] [place], [address] RDW SD 52.0 fl High 35.1-43.9 [facility] Comment on above: Performed By: #### L 501.5200, L100.0100, L500.2500 ####[facility] [address] [place], [address] WBC (Bld) [#/Vol] 6.8 10*3/uL Normal 4.4-11.0 [facility] Comment on above: Performed By: #### L 501.5200, L100.0100, L500.2500 ####[facility] [address] [place], [address] Carbon dioxide measurementOr dered By: Nick Romano on 08-15-2024 CO2 [Moles/Vol] 30.0 mmol/L 21.0-32.0 [facility] Chloride measurementOrdered By: Nick Romano on 08-15-2024 Chloride [Moles/Vol] 103 mmol/L 98-107 [facility] Eosinophil percentageOrdered By: Nick Romano on 08-15-2024 Eosinophils/100 WBC (Bld) 3.7 % 0-5 [facility] Erythrocyte distribution wid th ratioOrdered By: Nick Romano on 08-15-2024 Erythrocyte distribution width (RBC) [Ratio] 17.7 % High 11.6-14.6 [facility] Erythrocyte distribution wid th standard deviationOrdered By: Nick Romano on 08-15-2024 Erythrocyte distribution width (RBC) [Ratio] 52.0 fl High 35.1-43.9 [facility] Glomerular filtration rate ( GFR) estimationOrdered By: Nick Romano on 08-15-2024 GFR/1.73 sq M.predicted among non-blacks MDRD (S/P/Bld) [Vol rate/Area] 72 mL/min/{1.73_m2} >60 [facility] Glucose measurementOrdered B y: Nick Romano on 08-15-2024 Glucose [Mass/Vol] 95 mg/dL 74-106 [facility] Hematocrit Auto (Bld) [Volum e fraction]Ordered By: Nick Romano on 08-15-2024 Hematocrit (Bld) [Volume fraction] 25.1 % Low 37-47 [facility] Hemoglobin measurementOrdere d By: Nick Romano on 08-15-2024 Hemoglobin (Bld) [Mass/Vol] 7.0 g/dL Low 12.0-15.0 [facility] Immature granulocytes/100 WB C Auto (Bld)Ordered By: Nick Romano on 08-15-2024 Immature granulocytes/100 WBC (Bld) 0.100 % 0.0-0.9 [facility] MCV (mean corpuscular volume ) determinationOrdered By: Nick Romano on 08-15-2024 MCV (RBC) [Entitic vol] 80.7 fL Low 81-99 [facility] Magnesiumon 08-15-2024 Magnesium [Mass/Vol] 2.2 mg/dL Normal 1.6-2.6 [facility] Comment on above: Performed By: #### L 501.5200, L100.0100, L500.2500 ####[facility] [address] [place], [place], [address] Magnesium measurementOrdered By: Alexander Ye on 08-15-2024 Magnesium [Mass/Vol] 2.2 mg/dL 1.6-2.6 [facility] Mean corpuscular hemoglobin (MCH) determinationOrdered By: Nick Romano on 08-15-2024 MCH (RBC) [Entitic mass] 22.5 pg Low 27.0-32.0 [facility] Monocyte percentageOrdered B y: Nick Romano on 08-15-2024 Monocytes/100 WBC (Bld) 7.3 % 0-10 [facility] Neutrophil percentageOrdered By: Nick Romano on 08-15-2024 Neutrophils/100 WBC (Bld) 53.5 % 47-70 [facility] Phosphoruson 08-15-2024 Phosphate [Mass/Vol] 4.1 mg/dL Normal 2.5-4.9 [facility] Comment on above: Performed By: #### L 501.3370 ####[facility] [address] [place], [address] Platelet countOrdered By: Marjorie Romano on 08-15-2024 Platelets (Bld) [#/Vol] 226 10*3/uL 150-450 [facility] Potassium measurementOrdered By: Nick Romano on 08-15-2024 Potassium [Moles/Vol] 4.4 mmol/L 3.5-5.1 [facility] RBC Auto (Bld) [#/Vol]Ordere d By: Nick Romano on 08-15-2024 RBC (Bld) [#/Vol] 3.11 10*6/uL Low 4.2-5.[address] [facility] Serum or plasma calcium paddy urement (mass/volume)Ordered By: Nick Romano on 08-15-2024 Calcium [Mass/Vol] 8.7 mg/dL 8.5-10.1 [facility] Serum or plasma creatinine m easurement (mass/volume)Ordered By: Nick Romano on 08-15-2024 Creatinine [Mass/Vol] 0.86 mg/dL 0.55-1.02 [facility] Serum or plasma urea nitroge n measurement (mass/volume)Ordered By: Nick Romano on 08-15-2024 Urea nitrogen [Mass/Vol] 13 mg/dL 7-18 [facility] Sodium levelOrdered By: Nixon Romano on 08-15-2024 Sodium [Moles/Vol] 137 mmol/L 136-145 [facility] Type AND Screenon 08-15-2024 ABO and Rh group Nom (Bld) Blood group A Rh(D) positive Normal [facility] Comment on above: Order Comment: CMV N EG? NNumber of units to transfuse: 1Is pt's Hgb is = to 7.0 mg/dl or Hct </= 21%? YReason for Ordering Blood: ChronicAre the blood/blood products to be transfused? YIs the patient having/had surgery? Vanesa Oakes Performed By: #### B TS, BRC ####[facility] [address] [place], [address] White blood cell (WBC) count Ordered By: Nick Romano on 08-15-2024 WBC (Bld) [#/Vol] 6.8 10*3/uL 4.4-11.0 [facility] Basic Metabolic Profile (BMP )on 08-14-2024 BUN/CRE 17.0 RATIO Normal 10-20 [facility] Comment on above: Performed By: #### L 100.0100, L500.2500 ####[facility] [address] [place], [address] CA,Total 9.1 mg/dL Normal 8.5-10.1 [facility] Comment on above: Performed By: #### L 100.0100, L500.2500 ####[facility] [address] [place], [address] Chloride [Moles/Vol] 102 mmol/L Normal 98-107 [facility] Comment on above: Performed By: #### L 100.0100, L500.2500 ####[facility] [address] [place], [address] CO2 [Moles/Vol] 29.0 mmol/L Normal 21.0-32.0 [facility] Comment on above: Performed By: #### L 100.0100, L500.2500 ####[facility] [address] [place], [address] Creatinine [Mass/Vol] 0.82 mg/dL Normal 0.55-1.02 [facility] Comment on above: Result Comment: The validity of the calculated GFR GFRAA in patients over70 years has not been determined. Clinical correlation isessential. Performed By: #### L 100.0100, L500.2500 ####[facility] [address] [place], [address] ECRCL 103.91 ml/min Normal [facility] Comment on above: Performed By: #### L 100.0100, L500.2500 ####[facility] [address] [place], [address] EST GFR - AA 91 mL/min Normal >60 [facility] Comment on above: Result Comment: Afri can [place] GFR Calc Performed By: #### L 100.0100, L500.2500 ####[facility] [address] [place], [address] GAP 5 Normal 5-15 [facility] Comment on above: Performed By: #### L 100.0100, L500.2500 ####[facility] [address] [place], [address] GFR/1.73 sq M.predicted among non-blacks MDRD (S/P/Bld) [Vol rate/Area] 75 mL/min/{1.73_m2} Normal >60 [facility] Comment on above: Result Comment: Non- GFR Calc Performed By: #### L 100.0100, L500.2500 ####[facility] [address] [place], [address] Glucose [Mass/Vol] 85 mg/dL Normal 74-106 [facility] Comment on above: Performed By: #### L 100.0100, L500.2500 ####[facility] [address] [place], [address] Potassium [Moles/Vol] 4.2 mmol/L Normal 3.5-5.1 [facility] Comment on above: Performed By: #### L 100.0100, L500.2500 ####[facility] [address] [place], [address] Sodium [Moles/Vol] 136 mmol/L Normal 136-145 [facility] Comment on above: Performed By: #### L 100.0100, L500.2500 ####[facility] [address] [place], [address] Urea nitrogen [Mass/Vol] 14 mg/dL Normal 7-18 [facility] Comment on above: Performed By: #### L 100.0100, L500.2500 ####[facility] [address] [place], [address] CBC W/Diff, Automatedon 07-24-2024 Absolute Lymph 2.64 X10 3/uL Normal 0.83-4.51 [facility] Comment on above: Performed By: #### L 100.0100, L500.2500 ####[facility] [address] [place], [address] Absolute Neut 4.8 X10 3/uL Normal 2.0-7.7 [facility] Comment on above: Performed By: #### L 100.0100, L500.2500 ####[facility] [address] [place], [address] Basophils/100 WBC (Bld) 0.6 % Normal 0-1 [facility] Comment on above: Performed By: #### L 100.0100, L500.2500 ####[facility] [address] [place], [address] Eosinophils/100 WBC (Bld) 3.7 % Normal 0-5 [facility] Comment on above: Performed By: #### L 100.0100, L500.2500 ####[facility] [address] [place], [address] Erythrocyte distribution width (RBC) [Ratio] 17.7 % High 11.6-14.6 [facility] Comment on above: Performed By: #### L 100.0100, L500.2500 ####[facility] [address] [place], [address] Hematocrit (Bld) [Volume fraction] 28.1 % Low 37-47 [facility] Comment on above: Performed By: #### L 100.0100, L500.2500 ####[facility] [address] [place], [address] Hemoglobin (Bld) [Mass/Vol] 7.9 g/dL Low 12.0-15.0 [facility] Comment on above: Performed By: #### L 100.0100, L500.2500 ####[facility] [address] [place], [address] IG% 0.100 Normal 0.0-0.9 [facility] Comment on above: Result Comment: IG% - Immature Granulocytes (promyelocytes, myelocytes andmetamyelocytes) > 1% indicates that a LEFT SHIFT is Present. Performed By: #### L 100.0100, L500.2500 ####[facility] [address] [place], [address] Lymphocytes/100 WBC (Bld) 31.5 % Normal 19-41 [facility] Comment on above: Performed By: #### L 100.0100, L500.2500 ####[facility] [address] [place], [address] MCH (RBC) [Entitic mass] 22.9 pg Low 27.0-32.0 [facility] Comment on above: Performed By: #### L 100.0100, L500.2500 ####[facility] [address] [place], [address] MCHC (RBC) [Mass/Vol] 28.1 g/dL Low 32-36 [facility] Comment on above: Performed By: #### L 100.0100, L500.2500 ####[facility] [address] [place], [address] MCV (RBC) [Entitic vol] 81.4 fL Normal 81-99 [facility] Comment on above: Performed By: #### L 100.0100, L500.2500 ####[facility] [address] [place], [address] Monocytes/100 WBC (Bld) 6.7 % Normal 0-10 [facility] Comment on above: Performed By: #### L 100.0100, L500.2500 ####[facility] [address] [place], [address] Neutrophils/100 WBC (Bld) 57.4 % Normal 47-70 [facility] Comment on above: Performed By: #### L 100.0100, L500.2500 ####[facility] [address] [place], [address] Nucleated RBC (Bld) [#/Vol] 0 10*3/uL Normal 0-5 [facility] Comment on above: Performed By: #### L 100.0100, L500.2500 ####[facility] [address] [place], [address] Platelet mean volume (Bld) [Entitic vol] 10.3 fL Normal 6.2-12.0 [facility] Comment on above: Performed By: #### L 100.0100, L500.2500 ####[facility] [address] [place], [address] Platelets (Bld) [#/Vol] 242 10*3/uL Normal 150-450 [facility] Comment on above: Performed By: #### L 100.0100, L500.2500 ####[facility] [address] [place], [address] RBC (Bld) [#/Vol] 3.45 10*6/uL Low 4.2-5.[address] [facility] Comment on above: Performed By: #### L 100.0100, L500.2500 ####[facility] [address] [place], [address] RDW SD 52.4 fl High 35.1-43.9 [facility] Comment on above: Performed By: #### L 100.0100, L500.2500 ####[facility] [address] [place], [address] WBC (Bld) [#/Vol] 8.4 10*3/uL Normal 4.4-11.0 [facility] Comment on above: Performed By: #### L 100.0100, L500.2500 ####[facility] [address] [place], [address] Bilirubin, totalOrdered By: Aleksandra Hurley on 08-13-2024 Bilirubin [Mass/Vol] 0.20 mg/dL Normal 0.20-1.00 [facility] Comment on above: Result Comment: For patients on eltrombopag therapy, use of Dimension Brock TBIL is not recommended. Performed By: #### L 501.9985, L500.4050, L100.0100 ####[facility] [address] [place], [address] CBC W/Diff, Automatedon 07-24 Absolute Lymph 2.74 X10 3/uL Normal 0.83-4.51 [facility] Comment on above: Performed By: #### L 501.9985, L500.4050, L100.0100 ####[facility] [address] [place], [address] Absolute Neut 5.2 X10 3/uL Normal 2.0-7.7 [facility] Comment on above: Performed By: #### L 501.9985, L500.4050, L100.0100 ####[facility] [address] [place], [address] Basophils/100 WBC (Bld) 0.5 % Normal 0-1 [facility] Comment on above: Performed By: #### L 501.9985, L500.4050, L100.0100 ####[facility] [address] [place], [address] Eosinophils/100 WBC (Bld) 2.4 % Normal 0-5 [facility] Comment on above: Performed By: #### L 501.9985, L500.4050, L100.0100 ####[facility] [address] [place], [address] Erythrocyte distribution width (RBC) [Ratio] 17.6 % High 11.6-14.6 [facility] Comment on above: Performed By: #### L 501.9985, L500.4050, L100.0100 ####[facility] [address] [place], [address] Hematocrit (Bld) [Volume fraction] 25.1 % Low 37-47 [facility] Comment on above: Performed By: #### L 501.9985, L500.4050, L100.0100 ####[facility] [address] [place], [address] Hemoglobin (Bld) [Mass/Vol] 7.3 g/dL Low 12.0-15.0 [facility] Comment on above: Performed By: #### L 501.9985, L500.4050, L100.0100 ####[facility] [address] [place], [address] IG% 0.200 Normal 0.0-0.9 [facility] Comment on above: Result Comment: IG% - Immature Granulocytes (promyelocytes, myelocytes andmetamyelocytes) > 1% indicates that a LEFT SHIFT is Present. Performed By: #### L 501.9985, L500.4050, L100.0100 ####[facility] [address] [place], [address] Lymphocytes/100 WBC (Bld) 31.3 % Normal 19-41 [facility] Comment on above: Performed By: #### L 501.9985, L500.4050, L100.0100 ####[facility] [address] [place], [address] MCH (RBC) [Entitic mass] 23.1 pg Low 27.0-32.0 [facility] Comment on above: Performed By: #### L 501.9985, L500.4050, L100.0100 ####[facility] [address] [place], [address] MCHC (RBC) [Mass/Vol] 29.1 g/dL Low 32-36 [facility] Comment on above: Performed By: #### L 501.9985, L500.4050, L100.0100 ####[facility] [address] [place], [address] MCV (RBC) [Entitic vol] 79.4 fL Low 81-99 [facility] Comment on above: Performed By: #### L 501.9985, L500.4050, L100.0100 ####[facility] [address] [place], [address] Monocytes/100 WBC (Bld) 6.1 % Normal 0-10 [facility] Comment on above: Performed By: #### L 501.9985, L500.4050, L100.0100 ####[facility] [address] [place], [address] Neutrophils/100 WBC (Bld) 59.5 % Normal 47-70 [facility] Comment on above: Performed By: #### L 501.9985, L500.4050, L100.0100 ####[facility] [address] [place], [address] Nucleated RBC (Bld) [#/Vol] 0 10*3/uL Normal 0-5 [facility] Comment on above: Performed By: #### L 501.9985, L500.4050, L100.0100 ####[facility] [address] [place], [address] Platelet mean volume (Bld) [Entitic vol] 10.3 fL Normal 6.2-12.0 [facility] Comment on above: Performed By: #### L 501.9985, L500.4050, L100.0100 ####[facility] [address] [place], [address] Platelets (Bld) [#/Vol] 251 10*3/uL Normal 150-450 [facility] Comment on above: Performed By: #### L 501.9985, L500.4050, L100.0100 ####[facility] [address] [place], [address] RBC (Bld) [#/Vol] 3.16 10*6/uL Low 4.2-5.[address] [facility] Comment on above: Performed By: #### L 501.9985, L500.4050, L100.0100 ####[facility] [address] [place], [address] RDW SD 51.4 fl High 35.1-43.9 [facility] Comment on above: Performed By: #### L 501.9985, L500.4050, L100.0100 ####[facility] [address] [place], [address] WBC (Bld) [#/Vol] 8.8 10*3/uL Normal 4.4-11.0 [facility] Comment on above: Performed By: #### L 501.9985, L500.4050, L100.0100 ####[facility] [address] [place], [address] Comprehensive Metabolic Prof ilon 08-13-2024 Albumin/Globulin [Mass ratio] 0.7 {ratio} Low 0.9-2.4 [facility] Comment on above: Performed By: #### L 501.9985, L500.4050, L100.0100 ####[facility] [address] [place], [address] ALK P 102 U/L Normal 45-117 [facility] Comment on above: Performed By: #### L 501.9985, L500.4050, L100.0100 ####[facility] [address] [place], [address] AST [Catalytic activity/Vol] 23 U/L Normal 15-37 [facility] Comment on above: Performed By: #### L 501.9985, L500.4050, L100.0100 ####[facility] [address] [place], [address] BUN/CRE 20.6 RATIO High 10-20 [facility] Comment on above: Performed By: #### L 501.9985, L500.4050, L100.0100 ####[facility] [address] [place], [address] CA,Total 8.4 mg/dL Low 8.5-10.1 [facility] Comment on above: Performed By: #### L 501.9985, L500.4050, L100.0100 ####[facility] [address] [place], [address] Chloride [Moles/Vol] 104 mmol/L Normal 98-107 [facility] Comment on above: Performed By: #### L 501.9985, L500.4050, L100.0100 ####[facility] [address] [place], [address] CO2 [Moles/Vol] 28.0 mmol/L Normal 21.0-32.0 [facility] Comment on above: Performed By: #### L 501.9985, L500.4050, L100.0100 ####[facility] [address] [place], [address] Creatinine [Mass/Vol] 0.87 mg/dL Normal 0.55-1.02 [facility] Comment on above: Result Comment: The validity of the calculated GFR GFRAA in patients over70 years has not been determined. Clinical correlation isessential. Performed By: #### L 501.9985, L500.4050, L100.0100 ####[facility] [address] [place], [address] ECRCL 98.03 ml/min Normal [facility] Comment on above: Performed By: #### L 501.9985, L500.4050, L100.0100 ####[facility] [address] [place], [address] EST GFR - AA 85 mL/min Normal >60 [facility] Comment on above: Result Comment: Afri can [place] GFR Calc Performed By: #### L 501.9985, L500.4050, L100.0100 ####[facility] [address] [place], [address] GAP 4 Low 5-15 [facility] Comment on above: Performed By: #### L 501.9985, L500.4050, L100.0100 ####[facility] [address] [place], [address] GFR/1.73 sq M.predicted among non-blacks MDRD (S/P/Bld) [Vol rate/Area] 71 mL/min/{1.73_m2} Normal >60 [facility] Comment on above: Result Comment: Non- GFR Calc Performed By: #### L 501.9985, L500.4050, L100.0100 ####[facility] [address] [place], [address] Glucose [Mass/Vol] 99 mg/dL Normal 74-106 [facility] Comment on above: Performed By: #### L 501.9985, L500.4050, L100.0100 ####[facility] [address] [place], [address] Potassium [Moles/Vol] 4.1 mmol/L Normal 3.5-5.1 [facility] Comment on above: Performed By: #### L 501.9985, L500.4050, L100.0100 ####[facility] [address] [place], [address] Sodium [Moles/Vol] 136 mmol/L Normal 136-145 [facility] Comment on above: Performed By: #### L 501.9985, L500.4050, L100.0100 ####[facility] [address] [place], [address] T PROT 6.9 g/dL Normal 6.4-8.2 [facility] Comment on above: Performed By: #### L 501.9985, L500.4050, L100.0100 ####[facility] [address] [place], [address] Urea nitrogen [Mass/Vol] 18 mg/dL Normal 7-18 [facility] Comment on above: Performed By: #### L 501.9985, L500.4050, L100.0100 ####[facility] [address] [place], [address] HH, Hemoglobin AND Hematocri ton 08-13-2024 Hematocrit (Bld) [Volume fraction] 26.6 % Low 37-47 [facility] Comment on above: Performed By: #### L 100.0600 ####[facility] [address] [place], [address] Hemoglobin (Bld) [Mass/Vol] 7.8 g/dL Low 12.0-15.0 [facility] Comment on above: Performed By: #### L 100.0600 ####[facility] [address] [place], [address] Hemoglobin A1con 08-13-2024 HbA1c (Bld) [Mass fraction] 5.6 % Normal 3.8-5.6 [facility] Comment on above: Result Comment: Norm al < 5.7 % Prediabetic 5.7 - 6.4 % Diabetic >or= 6.5 % Please note range changes. Performed By: #### L 501.9985, L500.4050, L100.0100 ####[facility] [address] [place], [address] Hemoglobin A1c percentageOrd ered By: Aleksandra Hurley on 08-13-2024 HbA1c (Bld) [Mass fraction] 5.6 % 3.8-5.6 [facility] Influenza virus A and B and SARS-CoV-2 (COVID-19) and Respiratory syncytial virus RNAOrdered By: Nick Romano on 08-13-2024 SARS-CoV-2 (COVID-19) RNA GIL+probe Ql (Unsp spec) [facility] L501.4020on 08-13-2024 TROPONIN-I HS 6 pg/mL Normal 3.0-54.0 [facility] Comment on above: Order Comment: NEEDE D TO REORDER TROP #3 BECAUSE #2 AND #3 TROP DRAWN ATSAME TIME, BOTH SPECIMENS TESTING COMPLETE, COULD NOTUNRECEIVE #33 Result Comment: Plea se Note: New Test Units and Gender Specific Reference Ranges. For more information see Policy Stat Procedure Brock High Sensitivity Troponin (TNIH) and attachments. Performed By: #### L 501.4020 ####[facility] [address] [place], [address] TROPONIN-I HS 5 pg/mL Normal 3.0-54.0 [facility] Comment on above: Order Comment: Comme nts: SPECIMEN #2'TROP' Serial specimen #1, #2 or #3: 2 Result Comment: Plea se Note: New Test Units and Gender Specific Reference Ranges. For more information see Policy Stat Procedure Brock High Sensitivity Troponin (TNIH) and attachments. Performed By: #### L 501.4020 ####[facility] [address] [place], [address] TROPONIN-I HS 6 pg/mL Normal 3.0-54.0 [facility] Comment on above: Order Comment: DUPLI DON SAMPLE SENT FOR #2 AND #3 TROP, NEED TO REORDER #3BECAUSE COLLECTION TIME IS SAMEComments: SPECIMEN #3'TROP' Serial specimen #1, #2 or #3: 3 Result Comment: DUPL ICATE SAMPLE SENT FOR #2 AND #3 TROP, NEED TO REORDER #3BECAUSE COLLECTION TIME IS SAME Please Note: New Test Units and Gender Specific Reference Ranges. For more information see Policy Stat Procedure Brock High Sensitivity Troponin (TNIH) and attachments. Performed By: #### L 501.4020 ####[facility] [address] [place], [address] TROPONIN-I HS 4 pg/mL Normal 3.0-54.0 [facility] Comment on above: Order Comment: 'TROP ' Serial specimen #1, #2 or #3: 1Comments: may add to ED labs Result Comment: Plea se Note: New Test Units and Gender Specific Reference Ranges. For more information see Policy Stat Procedure Brock High Sensitivity Troponin (TNIH) and attachments. Performed By: #### L 501.4020, L501.5200 ####[facility] [address] [facility] [address] M100.678on 08-13-2024 M100.678 Pending SARS-CoV-2 (COVID 19) Negative INFLUENZA A Negative INFLUENZA B Negative RSV PCR Negative Normal [facility] Comment on above: Performed By: #### M 100.678 ####[facility] [address] [place] [id number] Magnesiumon 08-13-2024 Magnesium [Mass/Vol] 2.2 mg/dL Normal 1.6-2.6 [facility] Comment on above: Order Comment: 'TROP ' Serial specimen #1, #2 or #3: 1Comments: may add to ED labs Performed By: #### L 501.4020, L501.5200 ####[facility] [address] [place], [address] No Panel InformationOrdered By: [facility] Xavi on 08-13-2024 23 U/L 15-37 [facility] Serum globulin measurementOr dered By: Aleksandra Xavi on 08-13-2024 Globulin (S) [Mass/Vol] 4.0 g/dL Normal 2.2-4.2 [facility] Comment on above: Performed By: #### L 501.9985, L500.4050, L100.0100 ####[facility] [address] [place], [address] Serum or plasma alanine moran otransferase (ALT) measurementOrdered By: Aleksandra Hurley on 08-13-2024 ALT [Catalytic activity/Vol] 13 U/L Normal 13-56 [facility] Comment on above: Performed By: #### L 501.9985, L500.4050, L100.0100 ####[facility] [address] [place], [address] Serum or plasma albumin paddy urement (mass/volume)Ordered By: Aleksandra Hurley on 08-13-2024 Albumin [Mass/Vol] 2.9 g/dL Low 3.2-5.0 [facility] Comment on above: Performed By: #### L 501.9985, L500.4050, L100.0100 ####[facility] [address] [place], [address] Serum or plasma alkaline jeffery sphatase measurementOrdered By: Aleksandra Hurley on 08-13-2024 ALP [Catalytic activity/Vol] 102 U/L 45-117 [facility] Total proteinOrdered By: Natalio Hurley on 08-13-2024 Protein [Mass/Vol] 6.9 g/dL 6.4-8.2 [facility] Troponin IOrdered By: Aleksandra Xavi on 08-13-2024 Troponin I 6 pg/mL 3.0-54.0 [facility] 12 Lead EKGon 08-12-2024 12 Lead EKG Normal [facility] Activated partial thrombopla stin time (aPTT) in platelet poor plasma by coagulation aOrdered By: Chad Pederson on 08-12-2024 aPTT Coag (PPP) [Time] 28.9 s 24.1-36.2 [facility] Basic Metabolic Profile (BMP )on 08-12-2024 BUN/CRE 19.8 RATIO Normal 10-20 [facility] Comment on above: Performed By: #### L 500.2500, L500.3400, L300.4310, L100.0100, L300.3900 ####[facility] [address] [place], [address] CA,Total 9.0 mg/dL Normal 8.5-10.1 [facility] Comment on above: Performed By: #### L 500.2500, L500.3400, L300.4310, L100.0100, L300.3900 ####[facility] [address] [place], [address] Chloride [Moles/Vol] 101 mmol/L Normal 98-107 [facility] Comment on above: Performed By: #### L 500.2500, L500.3400, L300.4310, L100.0100, L300.3900 ####[facility] [address] [place], [address] CO2 [Moles/Vol] 29.0 mmol/L Normal 21.0-32.0 [facility] Comment on above: Performed By: #### L 500.2500, L500.3400, L300.4310, L100.0100, L300.3900 ####[facility] [address] [place], [address] Creatinine [Mass/Vol] 1.11 mg/dL High 0.55-1.02 [facility] Comment on above: Result Comment: The validity of the calculated GFR GFRAA in patients over70 years has not been determined. Clinical correlation isessential. Performed By: #### L 500.2500, L500.3400, L300.4310, L100.0100, L300.3900 ####[facility] [address] [place], [address] ECRCL 78.51 ml/min Normal [facility] Comment on above: Performed By: #### L 500.2500, L500.3400, L300.4310, L100.0100, L300.3900 ####[facility] [address] [place], [address] EST GFR - AA 65 mL/min Normal >60 [facility] Comment on above: Result Comment: Afri can [place] GFR Calc Performed By: #### L 500.2500, L500.3400, L300.4310, L100.0100, L300.3900 ####[facility] [address] [place], [address] GAP 7 Normal 5-15 [facility] Comment on above: Performed By: #### L 500.2500, L500.3400, L300.4310, L100.0100, L300.3900 ####[facility] [address] [place], [address] GFR/1.73 sq M.predicted among non-blacks MDRD (S/P/Bld) [Vol rate/Area] 54 mL/min/{1.73_m2} Low >60 [facility] Comment on above: Result Comment: Non- GFR Calc Performed By: #### L 500.2500, L500.3400, L300.4310, L100.0100, L300.3900 ####[facility] [address] [place], [address] Glucose [Mass/Vol] 151 mg/dL High 74-106 [facility] Comment on above: Result Comment: Fast ing Glucose result greater than or equal to 126 mg/dLsuggests DIABETES MELLITUS per A.D.A. criteria. Performed By: #### L 500.2500, L500.3400, L300.4310, L100.0100, L300.3900 ####[facility] [address] [place], [address] Potassium [Moles/Vol] 4.0 mmol/L Normal 3.5-5.1 [facility] Comment on above: Performed By: #### L 500.2500, L500.3400, L300.4310, L100.0100, L300.3900 ####[facility] [address] [place], [address] Sodium [Moles/Vol] 137 mmol/L Normal 136-145 [facility] Comment on above: Performed By: #### L 500.2500, L500.3400, L300.4310, L100.0100, L300.3900 ####[facility] [address] [place], [address] Urea nitrogen [Mass/Vol] 22 mg/dL High 7-18 [facility] Comment on above: Performed By: #### L 500.2500, L500.3400, L300.4310, L100.0100, L300.3900 ####[facility] [address] [place], [address] Bilirubin Test strip Ql (U)O rdered By: Chad Pederson on 08-12-2024 Bilirubin Ql (U) Negative Negative [facility] Bilirubin directOrdered By: Chad Pederson on 08-12-2024 Bilirubin.direct [Mass/Vol] 0.08 mg/dL 0.00-0.30 [facility] Brain/Head without Contrasto n 08-12-2024 Brain/Head without Contrast Normal [facility] CBC W/Diff, Automatedon - Absolute Lymph 2.30 X10 3/uL Normal 0.83-4.51 [facility] Comment on above: Performed By: #### L 500.2500, L500.3400, L300.4310, L100.0100, L300.3900 ####[facility] [address] [place], [address] Absolute Neut 5.6 X10 3/uL Normal 2.0-7.7 [facility] Comment on above: Performed By: #### L 500.2500, L500.3400, L300.4310, L100.0100, L300.3900 ####[facility] [address] [place], [address] Basophils/100 WBC (Bld) 0.5 % Normal 0-1 [facility] Comment on above: Performed By: #### L 500.2500, L500.3400, L300.4310, L100.0100, L300.3900 ####[facility] [address] [place], [address] Eosinophils/100 WBC (Bld) 2.9 % Normal 0-5 [facility] Comment on above: Performed By: #### L 500.2500, L500.3400, L300.4310, L100.0100, L300.3900 ####[facility] [address] [place], [address] Erythrocyte distribution width (RBC) [Ratio] 17.3 % High 11.6-14.6 [facility] Comment on above: Performed By: #### L 500.2500, L500.3400, L300.4310, L100.0100, L300.3900 ####[facility] [address] [place], [address] Hematocrit (Bld) [Volume fraction] 27.1 % Low 37-47 [facility] Comment on above: Performed By: #### L 500.2500, L500.3400, L300.4310, L100.0100, L300.3900 ####[facility] [address] [place], [address] Hemoglobin (Bld) [Mass/Vol] 8.0 g/dL Low 12.0-15.0 [facility] Comment on above: Performed By: #### L 500.2500, L500.3400, L300.4310, L100.0100, L300.3900 ####[facility] [address] [place], [address] IG% 0.300 Normal 0.0-0.9 [facility] Comment on above: Result Comment: IG% - Immature Granulocytes (promyelocytes, myelocytes andmetamyelocytes) > 1% indicates that a LEFT SHIFT is Present. Performed By: #### L 500.2500, L500.3400, L300.4310, L100.0100, L300.3900 ####[facility] [address] [place], [address] Lymphocytes/100 WBC (Bld) 26.4 % Normal 19-41 [facility] Comment on above: Performed By: #### L 500.2500, L500.3400, L300.4310, L100.0100, L300.3900 ####[facility] [address] [place], [address] MCH (RBC) [Entitic mass] 23.2 pg Low 27.0-32.0 [facility] Comment on above: Performed By: #### L 500.2500, L500.3400, L300.4310, L100.0100, L300.3900 ####[facility] [address] [place], [address] MCHC (RBC) [Mass/Vol] 29.5 g/dL Low 32-36 [facility] Comment on above: Performed By: #### L 500.2500, L500.3400, L300.4310, L100.0100, L300.3900 ####[facility] [address] [place], [address] MCV (RBC) [Entitic vol] 78.6 fL Low 81-99 [facility] Comment on above: Performed By: #### L 500.2500, L500.3400, L300.4310, L100.0100, L300.3900 ####[facility] [address] [place], [address] Monocytes/100 WBC (Bld) 5.5 % Normal 0-10 [facility] Comment on above: Performed By: #### L 500.2500, L500.3400, L300.4310, L100.0100, L300.3900 ####[facility] [address] [place], [address] Neutrophils/100 WBC (Bld) 64.4 % Normal 47-70 [facility] Comment on above: Performed By: #### L 500.2500, L500.3400, L300.4310, L100.0100, L300.3900 ####[facility] [address] [place], [address] Nucleated RBC (Bld) [#/Vol] 0 10*3/uL Normal 0-5 [facility] Comment on above: Performed By: #### L 500.2500, L500.3400, L300.4310, L100.0100, L300.3900 ####[facility] [address] [place], [address] Platelet mean volume (Bld) [Entitic vol] 10.5 fL Normal 6.2-12.0 [facility] Comment on above: Performed By: #### L 500.2500, L500.3400, L300.4310, L100.0100, L300.3900 ####[facility] [address] [place], [address] Platelets (Bld) [#/Vol] 258 10*3/uL Normal 150-450 [facility] Comment on above: Performed By: #### L 500.2500, L500.3400, L300.4310, L100.0100, L300.3900 ####[facility] [address] [place], [address] RBC (Bld) [#/Vol] 3.45 10*6/uL Low 4.2-5.[address] [facility] Comment on above: Performed By: #### L 500.2500, L500.3400, L300.4310, L100.0100, L300.3900 ####[facility] [address] [place], [address] RDW SD 49.1 fl High 35.1-43.9 [facility] Comment on above: Performed By: #### L 500.2500, L500.3400, L300.4310, L100.0100, L300.3900 ####[facility] [address] [place], [address] WBC (Bld) [#/Vol] 8.7 10*3/uL Normal 4.4-11.0 [facility] Comment on above: Performed By: #### L 500.2500, L500.3400, L300.4310, L100.0100, L300.3900 ####[facility] [address] [place], [address] CT Chest, Abd, Pel w/Contras ton 08-12-2024 CT Chest, Abd, Pel w/Contrast Normal [facility] Emergency Department Summary on 08-12-2024 Emergency Department Summary Normal [facility] H AND P Exam - Hospitaliston 08-12-2024 H&P Exam - Hospitalist Normal [facility] Hand Min 3 Viewson 5 Hand Min 3 Views Normal [facility] Ketones Test strip Ql (U)Ord ered By: Chad Pederson on 08-12-2024 Ketones Ql (U) 5 mg/dl High Negative [facility] Liver Profileon 08-12-2024 Albumin [Mass/Vol] 3.2 g/dL Normal 3.2-5.0 [facility] Comment on above: Performed By: #### L 500.2500, L500.3400, L300.4310, L100.0100, L300.3900 ####[facility] [address] [place], [address] ALK P 121 U/L High 45-117 [facility] Comment on above: Performed By: #### L 500.2500, L500.3400, L300.4310, L100.0100, L300.3900 ####[facility] [address] [place], [address] ALT [Catalytic activity/Vol] 10 U/L Low 13-56 [facility] Comment on above: Performed By: #### L 500.2500, L500.3400, L300.4310, L100.0100, L300.3900 ####[facility] [address] [place], [address] AST [Catalytic activity/Vol] 27 U/L Normal 15-37 [facility] Comment on above: Performed By: #### L 500.2500, L500.3400, L300.4310, L100.0100, L300.3900 ####[facility] [address] [place], [address] Bilirubin [Mass/Vol] 0.20 mg/dL Normal 0.20-1.00 [facility] Comment on above: Result Comment: For patients on eltrombopag therapy, use of Dimension Brock TBIL is not recommended. Performed By: #### L 500.2500, L500.3400, L300.4310, L100.0100, L300.3900 ####[facility] [address] [place], [place], [address] Bilirubin.direct [Mass/Vol] 0.08 mg/dL Normal 0.00-0.30 [facility] Comment on above: Performed By: #### L 500.2500, L500.3400, L300.4310, L100.0100, L300.3900 ####[facility] [address] [place], [address] Globulin (S) [Mass/Vol] 4.6 g/dL High 2.2-4.2 [facility] Comment on above: Performed By: #### L 500.2500, L500.3400, L300.4310, L100.0100, L300.3900 ####[facility] [address] [place], [address] T PROT 7.8 g/dL Normal 6.4-8.2 [facility] Comment on above: Performed By: #### L 500.2500, L500.3400, L300.4310, L100.0100, L300.3900 ####[facility] [address] [place], [address] Mucus LM Ql (Urine sed)Order ed By: Chad Pederson on 08-12-2024 Mucus Ql (Urine sed) 0 SEEN /hpf [facility] Nitrite Test strip Ql (U)Ord ered By: Chad Pederson on 08-12-2024 Nitrite Ql (U) Negative Negative [facility] Partial Thromboplast Timeon 08-12-2024 aPTT Coag (Bld) [Time] 28.9 s Normal 24.1-36.2 [facility] Comment on above: Performed By: #### L 500.2500, L500.3400, L300.4310, L100.0100, L300.3900 ####[facility] [address] [place], [address] Protein Test strip Ql (U)Ord ered By: Chad Pederson on 08-12-2024 Protein Ql (U) 15 mg/dl High Negative [facility] Prothrombin Time w/INRon INR Coag (PPP) [Relative time] 1.1 {INR} Normal [facility] Comment on above: Performed By: #### L 500.2500, L500.3400, L300.4310, L100.0100, L300.3900 ####[facility] [address] [place], [address] PT Coag (PPP) [Time] 14.7 s Normal 11.7-14.9 [facility] Comment on above: Performed By: #### L 500.2500, L500.3400, L300.4310, L100.0100, L300.3900 ####[facility] [address] [place], [address] Prothrombin timeOrdered By: Chad Pederson on 08-12-2024 PT Coag (PPP) [Time] 14.7 s 11.7-14.9 [facility] Spine Cervical without Contr ason 08-12-2024 Spine Cervical without Contras Normal [facility] Squamous epithelial cells de tection in urine sediment by light microscopyOrdered By: Chad Pederson on 08-12-2024 Epithelial cells.squamous LM Ql (Urine sed) 5-10 SEEN /hpf 5-10 [facility] Urinalysis, Completeon 08-12 EPI,SQUAMOUS 5-10 SEEN Normal 5-10 [facility] Comment on above: Order Comment: COLLE CTOR TO SPECIFY Performed By: #### L 400.0001 ####[facility] [address] [place], [address] RBC 0-5 SEEN Normal 0-5 [facility] Comment on above: Order Comment: LU CTOR TO SPECIFY Performed By: #### L 400.0001 ####[facility] [address] [place], [address] BILIRUBIN URINE Negative Normal Negative [facility] Comment on above: Order Comment: LU CTOR TO SPECIFY Performed By: #### L 400.0001 ####[facility] [address] [place], [address] Clarity (U) Clear Normal Clear [facility] Comment on above: Order Comment: LU CTOR TO SPECIFY Performed By: #### L 400.0001 ####[facility] [address] [place], [address] Color (U) Yellow Normal Yellow [facility] Comment on above: Order Comment: LU CTOR TO SPECIFY Performed By: #### L 400.0001 ####[facility] [address] [place], [address] GLUCOSE, UR Normal Normal Normal [facility] Comment on above: Order Comment: LU CTOR TO SPECIFY Performed By: #### L 400.0001 ####[facility] [address] [place], [address] KETONE UR 5 mg/dl Abnormal Negative [facility] Comment on above: Order Comment: UL CTOR TO SPECIFY Performed By: #### L 400.0001 ####[facility] [address] [place], [address] LEUK ESTERASE Negative Normal Negative [facility] Comment on above: Order Comment: LU CTOR TO SPECIFY Performed By: #### L 400.0001 ####[facility] [address] [place], [address] Nitrite Ql (U) Negative Normal Negative [facility] Comment on above: Order Comment: LU CTOR TO SPECIFY Performed By: #### L 400.0001 ####[facility] [address] [place], [address] OCCULT BLOOD-UR 10 /ul Abnormal Negative [facility] Comment on above: Order Comment: LU CTOR TO SPECIFY Performed By: #### L 400.0001 ####[facility] [address] [place], [address] pH UR 6.5 Normal 5.0 - 8.0 [facility] Comment on above: Order Comment: LU CTOR TO SPECIFY Performed By: #### L 400.0001 ####[facility] [address] [place], [address] PROT DIPSTX 15 mg/dl Abnormal Negative [facility] Comment on above: Order Comment: LU CTOR TO SPECIFY Performed By: #### L 400.0001 ####[facility] [address] [place], [address] SP.GR. DIPSTX 1.010 Normal 1.002-1.03 0 [facility] Comment on above: Order Comment: LU CTOR TO SPECIFY Performed By: #### L 400.0001 ####[facility] [address] [place], [address] UROBILI Normal Normal Normal [facility] Comment on above: Order Comment: LU CTOR TO SPECIFY Performed By: #### L 400.0001 ####[facility] [address] [place], [address] BACTERIA 0 SEEN Normal None Seen [facility] Comment on above: Order Comment: LU CTOR TO SPECIFY Performed By: #### L 400.0001 ####[facility] [address] [place], [address] Mucus Ql (Urine sed) 0 SEEN Normal [facility] Comment on above: Order Comment: LU CTOR TO SPECIFY Performed By: #### L 400.0001 ####[facility] [address] [place], [address] WBC 0 SEEN Normal 0-5 [facility] Comment on above: Order Comment: LU CTOR TO SPECIFY Performed By: #### L 400.0001 ####[facility] [address] [place], [place], [address] Urine clarityOrdered By: Rakesh Pederson on 08-12-2024 Clarity (U) Clear Clear [facility] Urine color determinationOrd ered By: Chad Pederson on 08-12-2024 Color (U) Yellow Yellow [facility] Urine glucose detectionOrder ed By: Chad Pederson on 08-12-2024 Glucose Ql (U) Normal mg/dl Normal [facility] Urine leukocyte esterase det ection by dipstickOrdered By: Chad Pederson on 08-12-2024 Leukocyte esterase Test strip Ql (U) Negative Negative [facility] Urine pHOrdered By: Chad connolly on 08-12-2024 pH (U) 6.5 [pH] 5.0 - 8.0 [facility] Urine sediment bacteria coun t by microscopy (number/high power field)Ordered By: Chad Pederson on 08-12-2024 Bacteria LM.HPF (Urine sed) [#/Area] 0 /[HPF] None Seen [facility] Urine specific gravity measu rementOrdered By: Chad Pederson on 08-12-2024 Specific gravity (U) [Rel density] 1.010 1.002-1.03 0 [facility] Urine urobilinogen measureme ntOrdered By: Chad Pederson on 08-12-2024 Urobilinogen Ql (U) Normal mg/dl Normal [facility] White blood cell countOrdere d By: Chad Pederson on 08-12-2024 White blood cell count 0 SEEN /hpf 0-5 [facility] Neurology Visit Reporton Neurology Visit Report Normal [facility] Basic Metabolic Profile (BMP )on 06-25-2024 BUN Normal 7-18 [facility] Comment on above: Result Comment: Canc elled via OM: Order cancelled - Patient discharged Performed By: #### L 500.2500, L100.0100 ####[facility] [address] [place], [place], [id number] BUN/CRE Normal 10-20 [facility] Comment on above: Result Comment: Canc elled via OM: Order cancelled - Patient discharged Performed By: #### L 500.2500, L100.0100 ####[facility] [address] [place], [address] CA,Total Normal 8.5-10.1 [facility] Comment on above: Result Comment: Canc elled via OM: Order cancelled - Patient discharged Performed By: #### L 500.2500, L100.0100 ####[facility] [address] [place], [address] CL Normal 98-107 [facility] Comment on above: Result Comment: Canc elled via OM: Order cancelled - Patient discharged Performed By: #### L 500.2500, L100.0100 ####[facility] [address] [place], [address] CO2 Normal 21.0-32.0 [facility] Comment on above: Result Comment: Canc elled via OM: Order cancelled - Patient discharged Performed By: #### L 500.2500, L100.0100 ####[facility] [address] [place], [address] CREAT,SERUM Normal 0.55-1.02 [facility] Comment on above: Result Comment: Canc elled via OM: Order cancelled - Patient discharged Performed By: #### L 500.2500, L100.0100 ####[facility] [address] [place], [address] EST GFR Normal >60 [facility] Comment on above: Result Comment: Canc elled via OM: Order cancelled - Patient discharged Performed By: #### L 500.2500, L100.0100 ####[facility] [address] [place], [address] EST GFR - AA Normal >60 [facility] Comment on above: Result Comment: Canc elled via OM: Order cancelled - Patient discharged Performed By: #### L 500.2500, L100.0100 ####[facility] [address] [place], [address] GAP Normal 5-15 [facility] Comment on above: Result Comment: Canc elled via OM: Order cancelled - Patient discharged Performed By: #### L 500.2500, L100.0100 ####[facility] [address] [place], [address] GLU Normal 74-106 [facility] Comment on above: Result Comment: Canc elled via OM: Order cancelled - Patient discharged Performed By: #### L 500.2500, L100.0100 ####[facility] [address] [place], [address] Potassium Normal 3.5-5.1 [facility] Comment on above: Result Comment: Canc elled via OM: Order cancelled - Patient discharged Performed By: #### L 500.2500, L100.0100 ####[facility] [address] [place], [address] Basic Metabolic Profile (BMP) Normal 136-145 [facility] Comment on above: Result Comment: Canc elled via OM: Order cancelled - Patient discharged Performed By: #### L 500.2500, L100.0100 ####[facility] [address] [place], [address] CBC W/Diff, Automatedon 12-0 Absolute Neut Normal 2.0-7.7 [facility] Comment on above: Result Comment: Canc elled via OM: Order cancelled - Patient discharged Performed By: #### L 500.2500, L100.0100 ####[facility] [address] [place], [address] HCT Normal 37-47 [facility] Comment on above: Result Comment: Canc elled via OM: Order cancelled - Patient discharged Performed By: #### L 500.2500, L100.0100 ####[facility] [address] [place], [address] HGB Normal 12.0-15.0 [facility] Comment on above: Result Comment: Canc elled via OM: Order cancelled - Patient discharged Performed By: #### L 500.2500, L100.0100 ####[facility] [address] [place], [address] MCH Normal 27.0-32.0 [facility] Comment on above: Result Comment: Canc elled via OM: Order cancelled - Patient discharged Performed By: #### L 500.2500, L100.0100 ####[facility] [address] [place], [address] MCHC Normal 32-36 [facility] Comment on above: Result Comment: Canc elled via OM: Order cancelled - Patient discharged Performed By: #### L 500.2500, L100.0100 ####[facility] [address] [place], [address] MCV Normal 81-99 [facility] Comment on above: Result Comment: Canc elled via OM: Order cancelled - Patient discharged Performed By: #### L 500.2500, L100.0100 ####[facility] [address] [place], [address] NEUT% Normal 47-70 [facility] Comment on above: Result Comment: Canc elled via OM: Order cancelled - Patient discharged Performed By: #### L 500.2500, L100.0100 ####[facility] [address] [place], [address] PLT Normal 150-450 [facility] Comment on above: Result Comment: Canc elled via OM: Order cancelled - Patient discharged Performed By: #### L 500.2500, L100.0100 ####[facility] [address] [place], [address] RBC Normal 4.2-5.4 [facility] Comment on above: Result Comment: Canc elled via OM: Order cancelled - Patient discharged Performed By: #### L 500.2500, L100.0100 ####[facility] [address] [place], [address] RDW CV Normal 11.6-14.6 [facility] Comment on above: Result Comment: Canc elled via OM: Order cancelled - Patient discharged Performed By: #### L 500.2500, L100.0100 ####[facility] [address] [place], [address] RDW SD Normal 35.1-43.9 [facility] Comment on above: Result Comment: Canc elled via OM: Order cancelled - Patient discharged Performed By: #### L 500.2500, L100.0100 ####[facility] [address] [place], [address] WBC Normal 4.4-11.0 [facility] Comment on above: Result Comment: Canc elled via OM: Order cancelled - Patient discharged Performed By: #### L 500.2500, L100.0100 ####[facility] [address] [place], [address] Basic Metabolic Profile (BMP )on 06-24-2024 BUN Normal 7-18 [facility] Comment on above: Result Comment: Canc elled via OM: Order cancelled - Patient discharged Performed By: #### L 100.0100, L500.2500 ####[facility] [address] [place], [address] BUN/CRE Normal 10-20 [facility] Comment on above: Result Comment: Canc elled via OM: Order cancelled - Patient discharged Performed By: #### L 100.0100, L500.2500 ####[facility] [address] [place], [address] CA,Total Normal 8.5-10.1 [facility] Comment on above: Result Comment: Canc elled via OM: Order cancelled - Patient discharged Performed By: #### L 100.0100, L500.2500 ####[facility] [address] [place], [address] CL Normal 98-107 [facility] Comment on above: Result Comment: Canc elled via OM: Order cancelled - Patient discharged Performed By: #### L 100.0100, L500.2500 ####[facility] [address] [place], [address] CO2 Normal 21.0-32.0 [facility] Comment on above: Result Comment: Canc elled via OM: Order cancelled - Patient discharged Performed By: #### L 100.0100, L500.2500 ####[facility] [address] [place], [address] CREAT,SERUM Normal 0.55-1.02 [facility] Comment on above: Result Comment: Canc elled via OM: Order cancelled - Patient discharged Performed By: #### L 100.0100, L500.2500 ####[facility] [address] [place], [address] EST GFR Normal >60 [facility] Comment on above: Result Comment: Canc elled via OM: Order cancelled - Patient discharged Performed By: #### L 100.0100, L500.2500 ####[facility] [address] [place], [address] EST GFR - AA Normal >60 [facility] Comment on above: Result Comment: Canc elled via OM: Order cancelled - Patient discharged Performed By: #### L 100.0100, L500.2500 ####[facility] [address] [place], [address] GAP Normal 5-15 [facility] Comment on above: Result Comment: Canc elled via OM: Order cancelled - Patient discharged Performed By: #### L 100.0100, L500.2500 ####[facility] [address] [place], [address] GLU Normal 74-106 [facility] Comment on above: Result Comment: Canc elled via OM: Order cancelled - Patient discharged Performed By: #### L 100.0100, L500.2500 ####[facility] [address] [place], [address] Potassium Normal 3.5-5.1 [facility] Comment on above: Result Comment: Canc elled via OM: Order cancelled - Patient discharged Performed By: #### L 100.0100, L500.2500 ####[facility] [address] [place], [address] Basic Metabolic Profile (BMP) Normal 136-145 [facility] Comment on above: Result Comment: Canc elled via OM: Order cancelled - Patient discharged Performed By: #### L 100.0100, L500.2500 ####[facility] [address] [place], [address] CBC W/Diff, Automatedon 12-0 -2023 Absolute Neut Normal 2.0-7.7 [facility] Comment on above: Result Comment: Canc elled via OM: Order cancelled - Patient discharged Performed By: #### L 100.0100, L500.2500 ####[facility] [address] [place], [address] HCT Normal 37-47 [facility] Comment on above: Result Comment: Canc elled via OM: Order cancelled - Patient discharged Performed By: #### L 100.0100, L500.2500 ####[facility] [address] [place], [address] HGB Normal 12.0-15.0 [facility] Comment on above: Result Comment: Canc elled via OM: Order cancelled - Patient discharged Performed By: #### L 100.0100, L500.2500 ####[facility] [address] [place], [address] MCH Normal 27.0-32.0 [facility] Comment on above: Result Comment: Canc elled via OM: Order cancelled - Patient discharged Performed By: #### L 100.0100, L500.2500 ####[facility] [address] [place], [address] MCHC Normal 32-36 [facility] Comment on above: Result Comment: Canc elled via OM: Order cancelled - Patient discharged Performed By: #### L 100.0100, L500.2500 ####[facility] [address] [place], [address] MCV Normal 81-99 [facility] Comment on above: Result Comment: Canc elled via OM: Order cancelled - Patient discharged Performed By: #### L 100.0100, L500.2500 ####[facility] [address] [place], [address] NEUT% Normal 47-70 [facility] Comment on above: Result Comment: Canc elled via OM: Order cancelled - Patient discharged Performed By: #### L 100.0100, L500.2500 ####[facility] [address] [place], [address] PLT Normal 150-450 [facility] Comment on above: Result Comment: Canc elled via OM: Order cancelled - Patient discharged Performed By: #### L 100.0100, L500.2500 ####[facility] [address] [place], [address] RBC Normal 4.2-5.4 [facility] Comment on above: Result Comment: Canc elled via OM: Order cancelled - Patient discharged Performed By: #### L 100.0100, L500.2500 ####[facility] [address] [place], [address] RDW CV Normal 11.6-14.6 [facility] Comment on above: Result Comment: Canc elled via OM: Order cancelled - Patient discharged Performed By: #### L 100.0100, L500.2500 ####[facility] [address] [place], [address] RDW SD Normal 35.1-43.9 [facility] Comment on above: Result Comment: Canc elled via OM: Order cancelled - Patient discharged Performed By: #### L 100.0100, L500.2500 ####[facility] [address] [place], [address] WBC Normal 4.4-11.0 [facility] Comment on above: Result Comment: Canc elled via OM: Order cancelled - Patient discharged Performed By: #### L 100.0100, L500.2500 ####[facility] [address] [place], [address] Basic Metabolic Profile (BMP )on 06-23-2024 BUN/CRE 16.3 RATIO Normal 10-20 [facility] Comment on above: Performed By: #### L 100.0500, L500.2500 ####[facility] [address] [place], [address] CA,Total 9.0 mg/dL Normal 8.5-10.1 [facility] Comment on above: Performed By: #### L 100.0500, L500.2500 ####[facility] [address] [place], [address] Chloride [Moles/Vol] 102 mmol/L Normal 98-107 [facility] Comment on above: Performed By: #### L 100.0500, L500.2500 ####[facility] [address] [place], [address] CO2 [Moles/Vol] 32.0 mmol/L Normal 21.0-32.0 [facility] Comment on above: Performed By: #### L 100.0500, L500.2500 ####[facility] [address] [place], [address] Creatinine [Mass/Vol] 0.92 mg/dL Normal 0.55-1.02 [facility] Comment on above: Result Comment: The validity of the calculated GFR GFRAA in patients over70 years has not been determined. Clinical correlation isessential. Performed By: #### L 100.0500, L500.2500 ####[facility] [address] [place], [address] ECRCL 91.40 ml/min Normal [facility] Comment on above: Performed By: #### L 100.0500, L500.2500 ####[facility] [address] [place], [address] EST GFR - AA 80 mL/min Normal >60 [facility] Comment on above: Result Comment: Afri can [place] GFR Calc Performed By: #### L 100.0500, L500.2500 ####[facility] [address] [place], [address] GAP 2 Low 5-15 [facility] Comment on above: Performed By: #### L 100.0500, L500.2500 ####[facility] [address] [place], [address] GFR/1.73 sq M.predicted among non-blacks MDRD (S/P/Bld) [Vol rate/Area] 66 mL/min/{1.73_m2} Normal >60 [facility] Comment on above: Result Comment: Non- GFR Calc Performed By: #### L 100.0500, L500.2500 ####[facility] [address] [place], [address] Glucose [Mass/Vol] 103 mg/dL Normal 74-106 [facility] Comment on above: Result Comment: Fast ing Glucose result from 100 to 125 mg/dLsuggests IMPAIRED HOMEOSTASIS per A.D.A. criteria. Performed By: #### L 100.0500, L500.2500 ####[facility] [address] [place], [address] Potassium [Moles/Vol] 4.5 mmol/L Normal 3.5-5.1 [facility] Comment on above: Performed By: #### L 100.0500, L500.2500 ####[facility] [address] [place], [address] Sodium [Moles/Vol] 137 mmol/L Normal 136-145 [facility] Comment on above: Performed By: #### L 100.0500, L500.2500 ####[facility] [address] [place], [address] Urea nitrogen [Mass/Vol] 15 mg/dL Normal 7-18 [facility] Comment on above: Performed By: #### L 100.0500, L500.2500 ####[facility] [address] [place], [address] CBC-Complete Blood Cnt No Di ffon 06-23-2024 Erythrocyte distribution width (RBC) [Ratio] 17.0 % High 11.6-14.6 [facility] Comment on above: Performed By: #### L 100.0500, L500.2500 ####[facility] [address] [place], [address] Hematocrit (Bld) [Volume fraction] 30.6 % Low 37-47 [facility] Comment on above: Performed By: #### L 100.0500, L500.2500 ####[facility] [address] [place], [address] Hemoglobin (Bld) [Mass/Vol] 8.4 g/dL Low 12.0-15.0 [facility] Comment on above: Performed By: #### L 100.0500, L500.2500 ####[facility] [address] [place], [address] MCH (RBC) [Entitic mass] 21.9 pg Low 27.0-32.0 [facility] Comment on above: Performed By: #### L 100.0500, L500.2500 ####[facility] [address] [place], [address] MCHC (RBC) [Mass/Vol] 27.5 g/dL Low 32-36 [facility] Comment on above: Performed By: #### L 100.0500, L500.2500 ####[facility] [address] [place], [address] MCV (RBC) [Entitic vol] 79.9 fL Low 81-99 [facility] Comment on above: Performed By: #### L 100.0500, L500.2500 ####[facility] [address] [place], [address] Platelet mean volume (Bld) [Entitic vol] 10.4 fL Normal 6.2-12.0 [facility] Comment on above: Performed By: #### L 100.0500, L500.2500 ####[facility] [address] [place], [address] Platelets (Bld) [#/Vol] 236 10*3/uL Normal 150-450 [facility] Comment on above: Performed By: #### L 100.0500, L500.2500 ####[facility] [address] [place], [address] RBC (Bld) [#/Vol] 3.83 10*6/uL Low 4.2-5.[address] [facility] Comment on above: Performed By: #### L 100.0500, L500.2500 ####[facility] [address] [place], [address] RDW SD 48.0 fl High 35.1-43.9 [facility] Comment on above: Performed By: #### L 100.0500, L500.2500 ####[facility] [address] [place], [address] WBC (Bld) [#/Vol] 8.6 10*3/uL Normal 4.4-11.0 [facility] Comment on above: Performed By: #### L 100.0500, L500.2500 ####[facility] [address] [place], [address] Discharge Instructionon Discharge Instruction Normal [facility] Echo, Limited Studyon 2023 Echo, Limited Study Normal [facility] 12 Lead EKGon 06-22-2024 12 Lead EKG Normal [facility] Abdomen/Pelvis without Conto n 06-22-2024 Abdomen/Pelvis without Cont Normal [facility] BRCon 06-22-2024 RC Normal Neg [facility] Comment on above: Result Comment: [id number] AP RC TRANSFUSED 06/22/24 0738 Performed By: #### B , [facility] ####[facility] [address] [place], [address] Basic Metabolic Profile (BMP )on 06-22-2024 BUN/CRE 18.1 RATIO Normal 10-20 [facility] Comment on above: Order Comment: 'TROP ' Serial specimen #1, #2 or #3: 1 Performed By: #### L 300.4310, L500.2500, L100.0100, L501.4020, L300.3900 ####[facility] [address] [place], [address] CA,Total 8.5 mg/dL Normal 8.5-10.1 [facility] Comment on above: Order Comment: 'TROP ' Serial specimen #1, #2 or #3: 1 Performed By: #### L 300.4310, L500.2500, L100.0100, L501.4020, L300.3900 ####[facility] [address] [place], [address] Chloride [Moles/Vol] 100 mmol/L Normal 98-107 [facility] Comment on above: Order Comment: 'TROP ' Serial specimen #1, #2 or #3: 1 Performed By: #### L 300.4310, L500.2500, L100.0100, L501.4020, L300.3900 ####[facility] [address] [place], [address] CO2 [Moles/Vol] 30.0 mmol/L Normal 21.0-32.0 [facility] Comment on above: Order Comment: 'TROP ' Serial specimen #1, #2 or #3: 1 Performed By: #### L 300.4310, L500.2500, L100.0100, L501.4020, L300.3900 ####[facility] [address] [place], [address] Creatinine [Mass/Vol] 0.89 mg/dL Normal 0.55-1.02 [facility] Comment on above: Order Comment: 'TROP ' Serial specimen #1, #2 or #3: 1 Result Comment: The validity of the calculated GFR GFRAA in patients over70 years has not been determined. Clinical correlation isessential. Performed By: #### L 300.4310, L500.2500, L100.0100, L501.4020, L300.3900 ####[facility] [address] [place], [address] ECRCL 96.46 ml/min Normal [facility] Comment on above: Order Comment: 'TROP ' Serial specimen #1, #2 or #3: 1 Performed By: #### L 300.4310, L500.2500, L100.0100, L501.4020, L300.3900 ####[facility] [address] [place], [address] EST GFR - AA 84 mL/min Normal >60 [facility] Comment on above: Order Comment: 'TROP ' Serial specimen #1, #2 or #3: 1 Result Comment: Afri can [place] GFR Calc Performed By: #### L 300.4310, L500.2500, L100.0100, L501.4020, L300.3900 ####[facility] [address] [place], [address] GAP 6 Normal 5-15 [facility] Comment on above: Order Comment: 'TROP ' Serial specimen #1, #2 or #3: 1 Performed By: #### L 300.4310, L500.2500, L100.0100, L501.4020, L300.3900 ####[facility] [address] [place], [address] GFR/1.73 sq M.predicted among non-blacks MDRD (S/P/Bld) [Vol rate/Area] 69 mL/min/{1.73_m2} Normal >60 [facility] Comment on above: Order Comment: 'TROP ' Serial specimen #1, #2 or #3: 1 Result Comment: Non- GFR Calc Performed By: #### L 300.4310, L500.2500, L100.0100, L501.4020, L300.3900 ####[facility] [address] [place], [address] Glucose [Mass/Vol] 121 mg/dL High 74-106 [facility] Comment on above: Order Comment: 'TROP ' Serial specimen #1, #2 or #3: 1 Result Comment: Fast ing Glucose result from 100 to 125 mg/dLsuggests IMPAIRED HOMEOSTASIS per A.D.A. criteria. Performed By: #### L 300.4310, L500.2500, L100.0100, L501.4020, L300.3900 ####[facility] [address] [place], [address] Potassium [Moles/Vol] 4.0 mmol/L Normal 3.5-5.1 [facility] Comment on above: Order Comment: 'TROP ' Serial specimen #1, #2 or #3: 1 Performed By: #### L 300.4310, L500.2500, L100.0100, L501.4020, L300.3900 ####[facility] [address] [place], [address] Sodium [Moles/Vol] 135 mmol/L Low 136-145 [facility] Comment on above: Order Comment: 'TROP ' Serial specimen #1, #2 or #3: 1 Performed By: #### L 300.4310, L500.2500, L100.0100, L501.4020, L300.3900 ####[facility] [address] [place], [address] Urea nitrogen [Mass/Vol] 16 mg/dL Normal 7-18 [facility] Comment on above: Order Comment: 'TROP ' Serial specimen #1, #2 or #3: 1 Performed By: #### L 300.4310, L500.2500, L100.0100, L501.4020, L300.3900 ####[facility] [address] [place], [address] Brain without Contraston Brain without Contrast Normal [facility] CBC W/Diff, Automatedon 12-0 Absolute Lymph 1.46 X10 3/uL Normal 0.83-4.51 [facility] Comment on above: Performed By: #### L 300.4310, L500.2500, L100.0100, L501.4020, L300.3900 ####[facility] [address] [place], [address] Absolute Neut 5.0 X10 3/uL Normal 2.0-7.7 [facility] Comment on above: Performed By: #### L 300.4310, L500.2500, L100.0100, L501.4020, L300.3900 ####[facility] [address] [place], [address] Basophils/100 WBC (Bld) 0.6 % Normal 0-1 [facility] Comment on above: Performed By: #### L 300.4310, L500.2500, L100.0100, L501.4020, L300.3900 ####[facility] [address] [place], [address] Eosinophils/100 WBC (Bld) 1.8 % Normal 0-5 [facility] Comment on above: Performed By: #### L 300.4310, L500.2500, L100.0100, L501.4020, L300.3900 ####[facility] [address] [place], [address] Erythrocyte distribution width (RBC) [Ratio] 15.7 % High 11.6-14.6 [facility] Comment on above: Performed By: #### L 300.4310, L500.2500, L100.0100, L501.4020, L300.3900 ####[facility] [address] [place], [address] Hematocrit (Bld) [Volume fraction] 24.6 % Low 37-47 [facility] Comment on above: Performed By: #### L 300.4310, L500.2500, L100.0100, L501.4020, L300.3900 ####[facility] [address] [place], [address] Hemoglobin (Bld) [Mass/Vol] 6.9 g/dL Low 12.0-15.0 [facility] Comment on above: Performed By: #### L 300.4310, L500.2500, L100.0100, L501.4020, L300.3900 ####[facility] [address] [place], [address] IG% 0.300 Normal 0.0-0.9 [facility] Comment on above: Result Comment: IG% - Immature Granulocytes (promyelocytes, myelocytes andmetamyelocytes) > 1% indicates that a LEFT SHIFT is Present. Performed By: #### L 300.4310, L500.2500, L100.0100, L501.4020, L300.3900 ####[facility] [address] [place], [address] Lymphocytes/100 WBC (Bld) 20.2 % Normal 19-41 [facility] Comment on above: Performed By: #### L 300.4310, L500.2500, L100.0100, L501.4020, L300.3900 ####[facility] [address] [place], [address] MCH (RBC) [Entitic mass] 21.1 pg Low 27.0-32.0 [facility] Comment on above: Performed By: #### L 300.4310, L500.2500, L100.0100, L501.4020, L300.3900 ####[facility] [address] [place], [address] MCHC (RBC) [Mass/Vol] 28.0 g/dL Low 32-36 [facility] Comment on above: Performed By: #### L 300.4310, L500.2500, L100.0100, L501.4020, L300.3900 ####[facility] [address] [place], [address] MCV (RBC) [Entitic vol] 75.2 fL Low 81-99 [facility] Comment on above: Performed By: #### L 300.4310, L500.2500, L100.0100, L501.4020, L300.3900 ####[facility] [address] [place], [address] Monocytes/100 WBC (Bld) 7.5 % Normal 0-10 [facility] Comment on above: Performed By: #### L 300.4310, L500.2500, L100.0100, L501.4020, L300.3900 ####[facility] [address] [place], [address] Neutrophils/100 WBC (Bld) 69.6 % Normal 47-70 [facility] Comment on above: Performed By: #### L 300.4310, L500.2500, L100.0100, L501.4020, L300.3900 ####[facility] [address] [place], [address] Nucleated RBC (Bld) [#/Vol] 0 10*3/uL Normal 0-5 [facility] Comment on above: Performed By: #### L 300.4310, L500.2500, L100.0100, L501.4020, L300.3900 ####[facility] [address] [place], [address] Platelet mean volume (Bld) [Entitic vol] 9.5 fL Normal 6.2-12.0 [facility] Comment on above: Performed By: #### L 300.4310, L500.2500, L100.0100, L501.4020, L300.3900 ####[facility] [address] [place], [address] Platelets (Bld) [#/Vol] 222 10*3/uL Normal 150-450 [facility] Comment on above: Performed By: #### L 300.4310, L500.2500, L100.0100, L501.4020, L300.3900 ####[facility] [address] [place], [address] RBC (Bld) [#/Vol] 3.27 10*6/uL Low 4.2-5.[address] [facility] Comment on above: Performed By: #### L 300.4310, L500.2500, L100.0100, L501.4020, L300.3900 ####[facility] [address] [place], [address] RDW SD 42.8 fl Normal 35.1-43.9 [facility] Comment on above: Performed By: #### L 300.4310, L500.2500, L100.0100, L501.4020, L300.3900 ####[facility] [address] [place], [address] WBC (Bld) [#/Vol] 7.2 10*3/uL Normal 4.4-11.0 [facility] Comment on above: Performed By: #### L 300.4310, L500.2500, L100.0100, L501.4020, L300.3900 ####[facility] [address] [place], [address] Chest 1 Viewon 06-22-2024 Chest 1 View Normal [facility] Emergency Department Summary on 06-22-2024 Emergency Department Summary Normal [facility] H AND P Exam - Hospitaliston 06-22-2024 H&P Exam - Hospitalist Normal [facility] Hemoglobin A1con 06-22-2024 HbA1c (Bld) [Mass fraction] 6.0 % High 3.8-5.6 [facility] Comment on above: Result Comment: Norm al < 5.7 % Prediabetic 5.7 - 6.4 % Diabetic >or= 6.5 % Please note range changes. Performed By: #### L 501.9520, L501.9985 ####[facility] [address] [place], [address] L501.4020on 06-22-2024 TROPONIN-I HS 4 pg/mL Normal 3.0-54.0 [facility] Comment on above: Order Comment: 'TROP ' Serial specimen #1, #2 or #3: 1 Result Comment: Plea se Note: New Test Units and Gender Specific Reference Ranges. For more information see Policy Stat Procedure Brock High Sensitivity Troponin (TNIH) and attachments. Performed By: #### L 300.4310, L500.2500, L100.0100, L501.4020, L300.3900 ####[facility] [address] [place], [address] Lipid Profileon 06-22-2024 Cholesterol [Mass/Vol] 176 mg/dL Normal 200 [facility] Comment on above: Order Comment: Comme nts: NPO at [place] prior to lipid panel Result Comment: <200 mg/dL Desirable 200-240 mg/dL Borderline >240 mg/dL High Risk Performed By: #### L 500.4100 ####[facility] [address] [place], [address] Cholesterol in HDL [Mass/Vol] 56 mg/dL Normal [facility] Comment on above: Order Comment: Comme nts: NPO at [place] prior to lipid panel Result Comment: The drugs N-Acetylcysteine and Metamizole may falselydepress this assay. Reference Range HDL <40 mg/dL Low HDL Cholesterol HDL >or= 60 mg/dL High HDL Cholesterol Performed By: #### L 500.4100 ####[facility] [address] [place], [address] Cholesterol in LDL [Mass/Vol] 102 mg/dL Normal 0-130 [facility] Comment on above: Order Comment: Comme nts: NPO at [place] prior to lipid panel Performed By: #### L 500.4100 ####[facility] [address] [place], [address] Cholesterol in VLDL [Mass/Vol] 18 mg/dL Normal 5-40 [facility] Comment on above: Order Comment: Comme nts: NPO at [place] prior to lipid panel Performed By: #### L 500.4100 ####[facility] [address] [place], [address] Triglyceride [Mass/Vol] 91 mg/dL Normal [facility] Comment on above: Order Comment: Comme nts: NPO at [place] prior to lipid panel Result Comment: The drugs N-Acetylcysteine and Metamizole may falselydepress this assay.Serum Triglycerides Reference Interval Normal <150 mg/dL Borderline high 150 - 199 mg/dL High 200 - 499 mg/dL Very High > or = 500 mg/dL Performed By: #### L 500.4100 ####[facility] [address] [place], [address] MR/CON.PCM.NEon 06-22-2024 MR/CON.PCM.NE Normal [facility] Partial Thromboplast Timeon 06-22-2024 aPTT Coag (Bld) [Time] 33.7 s Normal 24.1-36.2 [facility] Comment on above: Performed By: #### L 300.4310, L500.2500, L100.0100, L501.4020, L300.3900 ####[facility] [address] [place], [address] Prothrombin Time w/INRon INR Coag (PPP) [Relative time] 1.2 {INR} Normal [facility] Comment on above: Performed By: #### L 300.4310, L500.2500, L100.0100, L501.4020, L300.3900 ####[facility] [address] [place], [address] PT Coag (PPP) [Time] 14.9 s Normal 11.7-14.9 [facility] Comment on above: Performed By: #### L 300.4310, L500.2500, L100.0100, L501.4020, L300.3900 ####[facility] [address] [place], [address] STROKE Brain/Head without Co nton 06-22-2024 STROKE Brain/Head without Cont Normal [facility] STROKE CTA Head AND Neck W/C onon 06-22-2024 STROKE CTA Head AND Neck W/Con Normal [facility] Thyroid Stim Hormone (TSH)on 06-22-2024 TSH 4.000 uIU/mL High 0.358-3.74 0 [facility] Comment on above: Performed By: #### L 501.9520, L501.9985 ####[facility] [address] [place], [address] Type AND Screenon 06-22-2024 ABO and Rh group Nom (Bld) Blood group A Rh(D) positive Normal [facility] Comment on above: Order Comment: CMV N EG? NNumber of units to transfuse: 1Is pt's Hgb is = to 7.0 mg/dl or Hct </= 21%? YReason for Ordering Blood: ChronicIs there symptomatic anemia? Andrea the blood/blood products to be transfused? YIs the patient having/had surgery? NWhen Violette Performed By: #### B TS, BRC ####[facility] [address] [place], [address] Urinalysis, Completeon 06-22 RBC 10-25 SEEN Normal 0-5 [facility] Comment on above: Order Comment: LU CTOR TO SPECIFY Performed By: #### L 400.0001 ####[facility] [address] [place], [address] BACTERIA 0 SEEN Normal None Seen [facility] Comment on above: Order Comment: LU CTOR TO SPECIFY Performed By: #### L 400.0001 ####[facility] [address] [place], [address] EPI,SQUAMOUS 0 SEEN Normal 5-10 [facility] Comment on above: Order Comment: LU CTOR TO SPECIFY Performed By: #### L 400.0001 ####[facility] [address] [place], [address] Mucus Ql (Urine sed) 0 SEEN Normal [facility] Comment on above: Order Comment: LU CTOR TO SPECIFY Performed By: #### L 400.0001 ####[facility] [address] [place], [address] WBC 0 SEEN Normal 0-5 [facility] Comment on above: Order Comment: COLLE CTOR TO SPECIFY Performed By: #### L 400.0001 ####[facility] [address] [place], [address] Internal Medicine Office Vis iton 06-09-2024 Internal Medicine Office Visit Normal [facility] Abdomen/Pel W ORAL Cont Only on 03-17-2024 Abdomen/Pel W ORAL Cont Only Normal [facility] CNCOon 11-02-2023 CNCO HNO ID: [id number] Author: COORDINATOR, MAMMOGRAPHY, ? Service: ? Author Type: Physician Type: Letter Filed: 11/02/2023 07:27 Note Text: November 02, 2023 PID: [id number] Felisha Perrin [id number] [facility] [address] [place] [address] Dear Ms. Perrin, We are pleased to inform you that the results of your recent breast imaging exam on 11/01/2023 are normal. Early detection of cancer is very important. We also understand recommendations regarding breast cancer screening are controversial. Please discuss with your primary care provider which strategy is best for you and whether a mammogram is right for you. Your imaging studies and report will be kept on file at [facility] as part of your permanent medical record and are available for your continuing care. Thank you for allowing us to help in meeting your health care needs. Sincerely, Dr. Brothers Interpreting Radiologist [facility] (Normal over 40) Normal [facility] BD DXA - AXIAL SKELETONon BD DXA - AXIAL SKELETON * * *Final Report* * * DATE OF EXAM: Nov 01 2023 1:23PM WRB 0804 - BD DXA - AXIAL SKELETON B / PROCEDURE REASON: Z85.3 * * * * Physician Interpretation * * * * EXAMINATION: DXA BONE DENSITOMETRY BD DXA - AXIAL SKELETON PATIENT DEMOGRAPHICS: Age: 58 years, Gender: Female SCANNER INFORMATION: DXA Model: Pedro makerist - [employer] C [id number] Date Scanned: 11/01/2023 1:23 PM CLINICAL HISTORY: DIAGNOSTIC Z85.3. RISK FACTORS FOR OSTEOPOROSIS AND ASSOCIATED FRACTURES REPORTED BY THIS PATIENT: Please refer to Bone Health Questionnaire in the EMR CURRENT THERAPY: Please refer to Bone Health Questionnaire in the EMR TECHNICAL LIMITATIONS: Degenerative disease of the spine RESULTS: Lumbar spine (L1, L2, L3, L4): 1.169 g/cm2, T-score 1.1, Z-score 2.4 Left Femoral Neck: 0.938 g/cm2, T-score 0.8, Z-score 2.0 Left Total Hip: 1.069 g/cm2, T-score 1.0, Z-score 1.9 No comparison data - the patient has not had a previous bone density in the [facility] or the previous bone density was performed on a different DXA machine (new, updated model or different location) within the [facility]. VERTEBRAL FRACTURE ASSESSMENT Not performed. IMPRESSION: THE LOWEST T-SCORE IS 0.8 IN THE LEFT HIP 1) DIAGNOSIS (based on BMD alone): NORMAL BONE DENSITY Caution: Medical conditions other than osteoporosis may cause low bone density, such as osteomalacia or renal osteodystrophy. Clinical correlation is necessary. 2) FRACTURE RISK (based on FRAX): 10-year absolute fracture risk: - major osteoporotic fracture = 5.8 % - hip fracture = 0.1 % - A diagnosis of Osteoporosis, a 10 year probability of hip fracture greater than or equal to 3% or a 10 year probability of any major osteoporosis-related fracture greater than or equal to 20% should be considered for treatment. - DXA scanner generated FRAX calculations may slightly differ from online FRAX calculations due to differences in software versions. - All recommendations and calculations are to be considered as guidelines and should not replace sound clinical judgement - Caution: Fracture risk may be increased independent of BMD in patients with corticosteroid use, age greater than 65 years, or a history of prior fragility fracture. RECOMMENDATIONS: Follow-up in 2 years or as clinically indicated. Patients that are taking corticosteroids, are transplant recipients or have hyperparathyroidism should have annual follow-up. Follow-up scans should always be done on the same machine for accurate comparison. FOR MORE INFORMATION ABOUT DIAGNOSIS AND TREATMENT: [facility] for Osteoporosis and Metabolic Bone Disease:? www.ccf.org/arthritis/osteo National Osteoporosis Foundation:? www.nof.org International Society of Clinical Densitometry www.iscd.org Electric Stove Mechanic: OLVIN Transcribe Date/Time: Nov 05 2023 1:40P Dictated by : OMEGA WILKINSON MD This examination was interpreted and the report reviewed and electronically signed by: OMEGA WILKINSON MD on Nov 05 2023 1:41PM EST [id number] 0.8 Normal [facility] SCREENINGon 11-01-2023 [facility] SCREENING * * *Final Report* * * DATE OF EXAM: Nov 01 2023 2:06PM WRW 0581 - [facility] SCREENING / PROCEDURE REASON: Z12.39 * * * * Physician Interpretation * * * * RESULT: #[id number] - [facility] SCREENING BILATERAL DIGITAL SCREENING MAMMOGRAM WITH CAD: 11/01/2023 HISTORY: /SEE TECH NOTE /Z12.39 / Screening Mammogram-Patient reports NO symptoms. /priors available for comparison. RESULT: TECHNIQUE: The study was acquired using full field digital technology and interpreted from soft copy. Current study was also evaluated with a Computer Aided Detection (CAD). Comparison is made to exams dated: 02/20/2022 mammogram - [facility], 02/24/2021 ultrasound biopsy, 02/24/2021 mammogram - [facility], 01/04/2021 mammogram, 01/04/2021 ultrasound, and 11/23/2020 mammogram - [facility]. The breasts are almost entirely fatty. No significant masses, calcifications, or other findings are seen in either breast. There has been no significant interval change. IMPRESSION: NEGATIVE There is no mammographic evidence of malignancy. A 1 year screening mammogram is recommended. Jami Brothers M.D., cp/jessica:11/02/2023 07:27:43 copy to: Lynda GUARDADO, ph: [phone] Guest Services Lead(s): RT Debbie(R)(M), [facility] letter sent: Normal over 40 Mammogram BI-RADS: 1 Negative Multiple national specialty organizations have released breast cancer screening guidelines for women at average risk for developing breast cancer - guidelines that are based on both evidence and opinion, yet differ on when to start and how often to screen for breast cancer. With representation from Breast Imaging, Internal Medicine, Women's Health, Family Medicine, and Medical/Surgical Oncology, the [facility] has carefully reviewed the data and reached the following consensus: 1) All women should engage in shared decision-making with their providers to decide when to start and how often to screen; 2) All women should have the opportunity to start screening mammography at age 40; 3) For women ages 45-55, we recommend annual screening mammograms; 4) For women ages 55 and over, we support both the transition from an annual to a biennial interval if this aligns more with patient's values and preferences, or continuation with annual screening; 5) All women should discuss with their providers when to stop screening mammograms. Electric Stove Mechanic: Jessica Transcribe Date/Time: Nov 01 2023 1:23P Dictated by: JAMI BROTHERS MD This examination was interpreted and the report reviewed and electronically signed by: JAMI BROTHERS MD on Nov 02 2023 7:27AM EST [id number] Normal [facility] Absolute lymphocyte countOrd ered By: Callum Knutson on 07-02-2023 Lymphocytes Auto (Unsp spec) [#/Vol] 2.40 10*3/uL 0.83-4.51 [facility] Basophil percentageOrdered B y: Callum Knutson on 07-02-2023 Basophil percentage 0-5 SEEN /hpf 0-5 [facility] Basophils/100 WBC (Bld) 0.4 % 0-1 [facility] Chloride [Moles/Vol] 101 mmol/L 98-107 [facility] Eosinophils/100 WBC (Bld) 3.1 % 0-5 [facility] Glucose [Mass/Vol] 100 mg/dL 74-106 [facility] Comment on above: Fasting Glucose resu lt from 100 to 125 mg/dL suggests IMPAIRED HOMEOSTASIS per A.D.A. criteria. Neutrophils (Bld) [#/Vol] 6.1 10*3/uL 2.0-7.7 [facility] Neutrophils/100 WBC (Bld) 63.5 % 47-70 [facility] Potassium [Moles/Vol] 4.1 mmol/L 3.5-5.1 [facility] Comment on above: Slight Hemolysis, Re sult may be falsely increased. Sodium [Moles/Vol] 135 mmol/L 136-145 [facility] WBC (Bld) [#/Vol] 9.6 10*3/uL 4.4-11.0 [facility] Bilirubin Test strip Ql (U)O rdered By: Callum Knutson on 07-02-2023 Bilirubin Ql (U) Negative Negative [facility] Blood erythrocytes count (nu mber/volume)Ordered By: Callum Knutson on 07-02-2023 RBC (Bld) [#/Vol] 3.57 10*6/uL 4.2-5.[address] [facility] Blood hemoglobin measurement (mass/volume)Ordered By: Callum Knutson on 07-02-2023 Hemoglobin (Bld) [Mass/Vol] 7.8 g/dL 12.0-15.0 [facility] Blood lymphocytes/100 leukoc ytesOrdered By: Callum Knutson on 07-02-2023 Lymphocytes/100 WBC (Bld) 24.9 % 19-41 [facility] Blood monocytes/100 leukocyt esOrdered By: Callum Knutson on 07-02-2023 Monocytes/100 WBC (Bld) 7.9 % 0-10 [facility] Blood platelet mean volumeOr dered By: Callum Knutson on 07-02-2023 Platelet mean volume (Bld) [Entitic vol] 10.3 fL 6.2-12.0 [facility] Determination of erythrocyte mean corpuscular volume (MCV)Ordered By: Callum Knutson on 07-02-2023 MCV (RBC) [Entitic vol] 75.6 fL 81-99 [facility] Hematocrit Auto (Bld) [Volum e fraction]Ordered By: Callum Knutson on 07-02-2023 Hematocrit (Bld) [Volume fraction] 27.0 % 37-47 [facility] Ketones Test strip Ql (U)Ord ered By: Callum Knutson on 07-02-2023 Ketones Ql (U) Negative Negative [facility] Laboratory - Chemistry and C hemistry - challengeOrdered By: Callum Knutson on 07-02-2023 CO2 [Moles/Vol] 34.0 mmol/L 21.0-32.0 [facility] Urea nitrogen/Creatinine [Mass ratio] 14.7 mg/mg 10-20 [facility] Laboratory - Hematology and Cell countsOrdered By: Callum Knutson on 07-02-2023 Erythrocyte distribution width (RBC) [Entitic vol] 43.0 fL 35.1-43.9 [facility] Erythrocyte distribution width (RBC) [Ratio] 15.8 % 11.6-14.6 [facility] Immature granulocytes/100 WBC (Bld) 0.200 % 0.0-0.9 [facility] Comment on above: IG% - Immature Granu locytes (promyelocytes, myelocytes and metamyelocytes) > 1% indicates that a LEFT SHIFT is Present. MCH (RBC) [Entitic mass] 21.8 pg 27.0-32.0 [facility] Nucleated RBC/100 WBC (Bld) [Ratio] 0 % 0-5 [facility] MCHC Auto (RBC) [Mass/Vol]Or dered By: Callum Knutson on 07-02-2023 MCHC (RBC) [Mass/Vol] 28.9 g/dL 32-36 [facility] Mucus LM Ql (Urine sed)Order ed By: Callum Knutson on 07-02-2023 Mucus Ql (Urine sed) 0 SEEN /hpf [facility] Nitrite Test strip Ql (U)Ord ered By: Callum Knutson on 07-02-2023 Nitrite Ql (U) Negative Negative [facility] No Panel InformationOrdered By: Callum Knutson on 07-02-2023 Estimated Creatinine Clearance Calc 53.31 ml/min [facility] Estimated GFR (MDRD) Amer 66 mL/min >60 [facility] Comment on above: GFR Calc Estimated GFR (MDRD) Non-Af Amer 55 mL/min >60 [facility] Comment on above: Non- GFR Calc Platelets bldOrdered By: Ramandeep Knutson on 07-02-2023 Platelets (Bld) [#/Vol] 266 10*3/uL 150-450 [facility] Protein Test strip Ql (U)Ord ered By: Callum Knutson on 07-02-2023 Protein Ql (U) Negative Negative [facility] Serum or plasma calcium paddy urement (mass/volume)Ordered By: Callum Knutson on 07-02-2023 Calcium [Mass/Vol] 8.9 mg/dL 8.5-10.1 [facility] Serum or plasma creatinine m easurement (mass/volume)Ordered By: Callum Knutson on 07-02-2023 Creatinine [Mass/Vol] 1.09 mg/dL 0.55-1.02 [facility] [place] Comment on above: The validity of the calculated GFR & GFRAA in patients over 70 years has not been determined. Clinical correlation is essential. Serum or plasma urea nitroge n measurement (mass/volume)Ordered By: Callum Knutson on 07-02-2023 Urea nitrogen [Mass/Vol] 16 mg/dL 7-18 [facility] Squamous epithelial cells de tection in urine sediment by light microscopyOrdered By: Callum Knutson on 07-02-2023 Epithelial cells.squamous LM Ql (Urine sed) 0 SEEN /hpf 5-10 [facility] Thin prep Papanicolaou smear with manual screeningOrdered By: Callum Knutson on 07-02-2023 Thin prep Papanicolaou smear with manual screening 0 5-15 [facility] Urine blood detectionOrdered By: Callum Knutson on 07-02-2023 RBC Ql (U) 10 /ul Negative [facility] RBC Ql (U) 0 SEEN /hpf 0-5 [facility] Urine clarityOrdered By: Ramandeep Knutson on 07-02-2023 Clarity (U) Clear Clear [facility] Urine color determinationOrd ered By: Callum Knutson on 07-02-2023 Color (U) Yellow Yellow [facility] Urine glucose detectionOrder ed By: Callum Knutson on 07-02-2023 Glucose Ql (U) Normal mg/dl Normal [facility] Urine leukocyte esterase det ection by dipstickOrdered By: Callum Knutson on 07-02-2023 Leukocyte esterase Test strip Ql (U) 25 /ul Negative [facility] Urine pHOrdered By: Callum ellison on 07-02-2023 pH (U) 6.0 [pH] 5.0 - 8.0 [facility] Urine sediment bacteria coun t by microscopy (number/high power field)Ordered By: Callum Knutson on 07-02-2023 Bacteria LM.HPF (Urine sed) [#/Area] 0 /[HPF] None Seen [facility] Urine specific gravity measu rementOrdered By: Callum Knutson on 07-02-2023 Specific gravity (U) [Rel density] 1.010 1.002-1.03 0 [facility] Urobilinogen Auto test strip Ql (U)Ordered By: Callum Knutson on 07-02-2023 Urobilinogen Ql (U) Normal mg/dl Normal [facility] [place] Basophil percentageon 2022 Chloride [Moles/Vol] 100 mmol/L 98-107 [facility] Glucose [Mass/Vol] 144 mg/dL 74-106 [facility] Comment on above: Fasting Glucose resu lt greater than or equal to 126 mg/dL suggests DIABETES MELLITUS per A.D.A. criteria. Potassium [Moles/Vol] 4.6 mmol/L 3.5-5.1 [facility] [place] Sodium [Moles/Vol] 137 mmol/L 136-145 [facility] Laboratory - Chemistry and C hemistry - challengeon 02-05-2023 CO2 [Moles/Vol] 34.0 mmol/L 21.0-32.0 [facility] Urea nitrogen/Creatinine [Mass ratio] 17.9 mg/mg 10- [facility] No Panel Informationon 02-05 Estimated GFR (MDRD) Amer 69 mL/min >60 [facility] Comment on above: GFR Calc Estimated GFR (MDRD) Non-Af Amer 57 mL/min >60 [facility] Comment on above: Non- GFR Calc Serum or plasma calcium paddy urement (mass/volume)on 02-05-2023 Calcium [Mass/Vol] 8.5 mg/dL 8.5-10.1 [facility] Serum or plasma creatinine m easurement (mass/volume)on 02-05-2023 Creatinine [Mass/Vol] 1.06 mg/dL 0.55-1.02 [facility] [place] Comment on above: The validity of the calculated GFR & GFRAA in patients over 70 years has not been determined. Clinical correlation is essential. Serum or plasma urea nitroge n measurement (mass/volume)on 02-05-2023 Urea nitrogen [Mass/Vol] 19 mg/dL - [facility] Thin prep Papanicolaou smear with manual screeningon 07-17-2023 Thin prep Papanicolaou smear with manual screening 3 - [facility] Progress Noteson 08-09-2022 [employer] Interface Message Text This visit has been rescheduled as a phone visit to comply with patient safety concerns in accordance with CDC recommendations. Telephone/Video Encounter This visit was performed via interactive telehealth. This visit was initiated by the patient / provider and the patient and provider interacted in real time. Location of the patient: Unknown Location of the provider: Remote Reviewed informed consent with patient: yes - see MR Patient/parent indicated understanding of informed consent: yes see MR Phone numbers Verified number (above) and current location (in MR) as well as privacy and minimization of distractions. Agreed provider would call pt back if call was disconnected. Total Time Spent with Patient: 0 minutes, of which greater than 50% was spent on counseling or coordinating care. Twice attempted to reach patient at 10:10 and 10:20 at the phone #s above. No answer, unable to reach pt. Call forwarded to [employer] has only phone number, no other identifier, unable to leave HIPAA-complaint message If patient calls back please ask if any concerns and if need refills. If so, please ask which medications and which pharmacy to send to. 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 Admissions Specialist PGY-3 This encounter was opened in error. Patient was a No-Show. Please disregard. Normal [employer] Telephone Encounteron 2021 [employer] Interface Message Text Last visit with Psychiatry (Tom Montelongo) was 05/10/2022 Next visit with Psychiatry (Tom Montelongo) is 08/09/2022 Normal [employer] [facility] Addendum Noteon 06-26-2022 [employer] Interface Message Text Addended by: MINNIE EDWARDS on: 06/26/2022 12:07 PM Modules accepted: Level of Service Normal [employer] [facility] Basophil percentageon 2021 Chloride [Moles/Vol] 111 mmol/L 98-107 [facility] Work Phone: Glucose [Mass/Vol] 93 mg/dL 74-106 [facility] Work Phone: Potassium [Moles/Vol] 4.9 mmol/L 3.5-5.1 [facility] Work Phone: [phone] Sodium [Moles/Vol] 139 mmol/L 136-145 [facility] Work Phone: [phone] Lactate [Moles/Vol] 0.6 mmol/L 0.4-2.0 [facility] Work Phone: [phone] Laboratory - Chemistry and C hemistry - challengeon 06-06-2022 CO2 [Moles/Vol] 24.0 mmol/L 21.0-32.0 [facility] Work Phone: [phone] Urea nitrogen/Creatinine [Mass ratio] 24.6 mg/mg 10-20 [facility] Work Phone: No Panel Informationon 06-06 Estimated Creatinine Clearance Calc 49.84 ml/min [facility] Work Phone: Estimated GFR (MDRD) Amer 61 mL/min >60 [facility] Work Phone: Comment on above: GFR Calc Estimated GFR (MDRD) Non-Af Amer 50 mL/min >60 [facility] Work Phone: Comment on above: Non- GFR Calc Serum or plasma calcium paddy urement (mass/volume)on 06-06-2022 Calcium [Mass/Vol] 8.4 mg/dL 8.5-10.1 [facility] Work Phone: [phone] Serum or plasma creatinine m easurement (mass/volume)on 06-06-2022 Creatinine [Mass/Vol] 1.18 mg/dL 0.55-1.02 [facility] [place] Work Phone: Comment on above: The validity of the calculated GFR & GFRAA in patients over 70 years has not been determined. Clinical correlation is essential. Serum or plasma urea nitroge n measurement (mass/volume)on 06-06-2022 Urea nitrogen [Mass/Vol] 29 mg/dL 7-18 [facility] Work Phone: Thin prep Papanicolaou smear with manual screeningon 06-06-2022 Thin prep Papanicolaou smear with manual screening 4 5-15 [facility] Work Phone: Absolute lymphocyte counton 06-05-2022 Lymphocytes Auto (Unsp spec) [#/Vol] 2.21 10*3/uL 0.83-4.51 [facility] Work Phone: Basophil percentageon 2021 Basophil percentage 5-10 SEEN /hpf 0-5 W [facility] Work Phone: Chloride [Moles/Vol] 105 mmol/L 98-107 [facility] Work Phone: Glucose [Mass/Vol] 117 mg/dL 74-106 [facility] Work Phone: Comment on above: Fasting Glucose resu lt from 100 to 125 mg/dL suggests IMPAIRED HOMEOSTASIS per A.D.A. criteria. Potassium [Moles/Vol] 5.6 mmol/L 3.5-5.1 [facility] [place] Work Phone: Sodium [Moles/Vol] 136 mmol/L 136-145 [facility] Work Phone: Basophils/100 WBC (Bld) 0.9 % 0-1 [facility] Work Phone: Bilirubin [Mass/Vol] 0.40 mg/dL 0.20-1.00 [facility] Work Phone: Comment on above: For patients on eltr ombopag therapy, use of Dimension Brock TBIL is not recommended. Chloride [Moles/Vol] 104 mmol/L 98-107 [facility] Work Phone: Eosinophils/100 WBC (Bld) 3.0 % 0-5 [facility] Work Phone: Glucose [Mass/Vol] 112 mg/dL 74-106 [facility] Work Phone: Comment on above: Fasting Glucose resu lt from 100 to 125 mg/dL suggests IMPAIRED HOMEOSTASIS per A.D.A. criteria. Neutrophils (Bld) [#/Vol] 4.7 10*3/uL 2.0-7.7 [facility] Work Phone: Neutrophils/100 WBC (Bld) 60.8 % 47-70 [facility] Work Phone: Potassium [Moles/Vol] 6.2 mmol/L 3.5-5.1 [facility] [place] Work Phone: Comment on above: Critical Result(s) C alled at: 18:43:20 06/05/2022 by: Valorie Lo to Ford Olvera NP. Results read back by same. Protein [Mass/Vol] 8.4 g/dL 6.4-8.2 [facility] Work Phone: Sodium [Moles/Vol] 136 mmol/L 136-145 [facility] Work Phone: WBC (Bld) [#/Vol] 7.7 10*3/uL 4.4-11.0 [facility] Work Phone: Bilirubin Test strip Ql (U)o n 06-05-2022 Bilirubin Ql (U) Negative Negative [facility] Work Phone: Blood erythrocytes count (nu mber/volume)on 06-05-2022 RBC (Bld) [#/Vol] 3.86 10*6/uL 4.2-5.[address] [facility] Work Phone: [phone] Blood hemoglobin measurement (mass/volume)on 06-05-2022 Hemoglobin (Bld) [Mass/Vol] 9.5 g/dL 12.0-15.0 [facility] Work Phone: Blood lymphocytes/100 leukoc yteson 06-05-2022 Lymphocytes/100 WBC (Bld) 28.9 % 19-41 [facility] Work Phone: Blood monocytes/100 leukocyt eson 06-05-2022 Monocytes/100 WBC (Bld) 6.1 % 0-10 [facility] Work Phone: [phone] Blood platelet mean volumeon 06-05-2022 Platelet mean volume (Bld) [Entitic vol] 11.1 fL 6.2-12.0 [facility] Work Phone: [phone] Determination of erythrocyte mean corpuscular volume (MCV)on 06-05-2022 MCV (RBC) [Entitic vol] 81.3 fL 81-99 [facility] Work Phone: [phone] Hematocrit Auto (Bld) [Volum e fraction]on 06-05-2022 Hematocrit (Bld) [Volume fraction] 31.4 % 37-47 [facility] Work Phone: Iron measurement (mass/mass) on 06-05-2022 Iron (Unsp spec) [Mass/Mass] 39 ug/dL 50-170 [facility] Work Phone: [phone] Ketones Test strip Ql (U)on 06-05-2022 Ketones Ql (U) 5 mg/dl Negative [facility] Work Phone: [phone] Laboratory - Chemistry and C hemistry - challengeon 06-05-2022 CO2 [Moles/Vol] 26.0 mmol/L 21.0-32.0 [facility] Work Phone: Magnesium [Mass/Vol] 2.4 mg/dL 1.6-2.6 [facility] Work Phone: [phone] Urea nitrogen/Creatinine [Mass ratio] 21.9 mg/mg 10-20 [facility] Work Phone: [phone] ALP [Catalytic activity/Vol] 220 U/L 45-117 [facility] Work Phone: ALT [Catalytic activity/Vol] 18 U/L 13-56 [facility] Work Phone: CO2 [Moles/Vol] 25.0 mmol/L 21.0-32.0 [facility] Work Phone: Globulin (S) [Mass/Vol] 4.6 g/dL 2.2-4.2 [facility] Work Phone: Urea nitrogen/Creatinine [Mass ratio] 21.1 mg/mg 10-20 [facility] Work Phone: [phone] Laboratory - Hematology and Cell countson 06-05-2022 Erythrocyte distribution width (RBC) [Entitic vol] 50.4 fL 35.1-43.9 [facility] Work Phone: [phone] Erythrocyte distribution width (RBC) [Ratio] 17.2 % 11.6-14.6 [facility] Work Phone: [phone] Immature granulocytes/100 WBC (Bld) 0.300 % 0.0-0.9 [facility] Work Phone: [phone] Comment on above: IG% - Immature Granu locytes (promyelocytes, myelocytes and metamyelocytes) > 1% indicates that a LEFT SHIFT is Present. MCH (RBC) [Entitic mass] 24.6 pg 27.0-32.0 [facility] Work Phone: [phone] Nucleated RBC/100 WBC (Bld) [Ratio] 0 % 0-5 [facility] Work Phone: [phone] MCHC Auto (RBC) [Mass/Vol]on 06-05-2022 MCHC (RBC) [Mass/Vol] 30.3 g/dL 32-36 [facility] [place] Work Phone: [phone] Mucus LM Ql (Urine sed)on Mucus Ql (Urine sed) 0 SEEN /hpf [facility] [place] Work Phone: [phone] Nitrite Test strip Ql (U)on 06-05-2022 Nitrite Ql (U) Negative Negative [facility] Work Phone: [phone] Panel Informationon 06-05 Estimated Creatinine Clearance Calc 33.04 ml/min [facility] Work Phone: [phone] Estimated GFR (MDRD) Amer 38 mL/min >60 [facility] Work Phone: [phone] Comment on above: GFR Calc Estimated GFR (MDRD) Non-Af Amer 31 mL/min >60 [facility] Work Phone: [phone] Comment on above: Non- GFR Calc Estimated GFR (MDRD) Amer 45 mL/min >60 [facility] Work Phone: Comment on above: GFR Calc Estimated GFR (MDRD) Non-Af Amer 38 mL/min >60 [facility] Work Phone: [phone] Comment on above: Non- GFR Calc Total Iron Binding Capacity 418 ug/dL 250-450 [facility] Work Phone: [phone] Platelets bldon 06-05-2022 Platelets (Bld) [#/Vol] 331 10*3/uL 150-450 [facility] Work Phone: [phone] Protein Test strip Ql (U)on 06-05-2022 Protein Ql (U) 30 mg/dl Negative [facility] Work Phone: [phone] Serum or plasma albumin paddy urement (mass/volume)on 06-05-2022 Albumin [Mass/Vol] 3.8 g/dL 3.2-5.0 [facility] Work Phone: [phone] Serum or plasma albumin/glob ulin mass ratioon 06-05-2022 Albumin/Globulin [Mass ratio] 0.8 {ratio} 0.9-2.4 [facility] Work Phone: [phone] Serum or plasma calcium paddy urement (mass/volume)on 06-05-2022 Calcium [Mass/Vol] 8.6 mg/dL 8.5-10.1 [facility] Work Phone: [phone] Calcium [Mass/Vol] 9.7 mg/dL 8.5-10.1 [facility] Work Phone: [phone] Serum or plasma creatinine m easurement (mass/volume)on 06-05-2022 Creatinine [Mass/Vol] 1.78 mg/dL 0.55-1.02 [facility] [place] Work Phone: [phone] Comment on above: The validity of the calculated GFR & GFRAA in patients over 70 years has not been determined. Clinical correlation is essential. Creatinine [Mass/Vol] 1.52 mg/dL 0.55-1.02 [facility] [place] Work Phone: Comment on above: The validity of the calculated GFR & GFRAA in patients over 70 years has not been determined. Clinical correlation is essential. Serum or plasma iron saturat ion measurement (mass fraction)on 06-05-2022 Iron saturation [Mass fraction] 9.3 % 15.0-55.0 [facility] Work Phone: Serum or plasma urea nitroge n measurement (mass/volume)on 06-05-2022 Urea nitrogen [Mass/Vol] 39 mg/dL -18 [facility] Work Phone: [phone] Urea nitrogen [Mass/Vol] 32 mg/dL 02-06 [facility] Work Phone: [phone] Squamous epithelial cells de tection in urine sediment by light microscopyon 06-05-2022 Epithelial cells.squamous LM Ql (Urine sed) 0-5 SEEN /hpf 5-10 [facility] Work Phone: Thin prep Papanicolaou smear with manual screeningon 06-05-2022 Thin prep Papanicolaou smear with manual screening 5 5-15 [facility] Work Phone: Thin prep Papanicolaou smear with manual screening 54 U/L 15-37 [facility] Work Phone: Thin prep Papanicolaou smear with manual screening 7 5-15 [facility] Work Phone: Urine blood detectionon 05-23 RBC Ql (U) 25 /ul Negative [facility] Work Phone: RBC Ql (U) 0-5 SEEN /hpf 0-5 [facility] Work Phone: Urine clarityon 06-05-2022 Clarity (U) Sl. Cloudy Clear [facility] Work Phone: Urine color determinationon 06-05-2022 Color (U) Yellow Yellow [facility] Work Phone: Urine glucose detectionon Glucose Ql (U) Normal mg/dl Normal [facility] Work Phone: [phone] Urine leukocyte esterase det ection by dipstickon 06-05-2022 Leukocyte esterase Test strip Ql (U) 500 /ul Negative [facility] Work Phone: Urine pHon 06-05-2022 pH (U) 5.0 [pH] 5.0 - 8.0 [facility] Work Phone: Urine sediment bacteria coun t by microscopy (number/high power field)on 06-05-2022 Bacteria LM.HPF (Urine sed) [#/Area] 2 /[HPF] None Seen [facility] Work Phone: Urine sediment renal epithel ial cell count by microscopy (number/high power field)on 06-05-2022 Epithelial cells.renal LM.HPF (Urine sed) [#/Area] 0 /[HPF] 0-5 [facility] Work Phone: Urine specific gravity measu rementon 06-05-2022 Specific gravity (U) [Rel density] 1.020 1.002-1.03 0 [facility] Work Phone: Urobilinogen Auto test strip Ql (U)on 06-05-2022 Urobilinogen Ql (U) 1 mg/dl Normal [facility] Work Phone: Progress Noteson 05-10-2022 [employer] Interface Message Text Documentation: Mode: Telephone Patient Patient Work Phone: Patient Cell Preferred phone: [phone] Consent: I confirmed patient understanding of the risks and benefits of telehealth visits and obtained consent to proceed with the telehealth visit. Location of Patient: Home of patient Telephone/Video Encounter This visit was initiated by the patient / provider and the patient and provider interacted in real time. Location of the patient: Home of patient Location of the provider: [place] Reviewed informed consent with patient: yes - see MR Patient/parent indicated understanding of informed consent: yes see MR Phone numbers Preferred phone #: [phone] Verified number (above) and current location (in MR) as well as privacy and minimization of distractions. Agreed provider would call pt back if call was disconnected. Patient provided two identifiers Total Time Spent with Patient: 20 minutes for Pharmacological Management , of which greater than 50% was spent on counseling or coordinating care. PHARMACOLOGIC MANAGEMENT: 05/10/2022 START TIME: 11:15 END TIME: 11:35 Service Authorized by Treatment Plan/ISP: Yes MEDICATIONS: Current Outpatient Medications on File Prior to Visit Medication Sig Dispense Refill venlafaxine (EFFEXOR XR) 150 MG ER capsule TAKE 1 CAPSULE BY MOUTH ONCE DAILY 30 Capsule 2 mirtazapine (REMERON) 7.5 MG tablet TAKE 1 TABLET BY MOUTH EVERY NIGHT AT BEDTIME 90 Tablet 0 clonazePAM (KlonoPIN) 0.5 MG tablet Take 1 Tablet by mouth 2 times daily as needed for Anxiety for up to 30 days. 45 Tablet 1 aluminum AND magnesium hydroxide-simethicone (MAALOX REGULAR STRENGTH) 200-200-20 MG/5ML suspension Take 15 mL by mouth every 6 hours as needed for Other. 1 Bottle 3 nicotine (NICODERM CQ) 14 MG/24HR patch Place 1 Patch on the skin every 24 hours. 30 Patch 3 atorvastatin (LIPITOR) 20 MG tablet Take 1 Tablet by mouth at bedtime. 30 Tablet 2 losartan (COZAAR) 100 MG tablet Take 1 Tablet by mouth daily. 30 Tablet 3 albuterol (PROAIR HFA) inhaler 90 mcg/inh Inhale 2 Puffs. Cholecalciferol (VITAMIN D) 2000 UNITS CAPS Take 2,000 Units by mouth daily. 30 Cap 11 No current facility-administered medications on file prior to visit. SIDE EFFECTS: None reported. SIGNIFICANT LIFE CHANGES/UPDATE: None reported. OARRS: Reviewed today, no concerns. Treatment Plan Goal Addressed Today: Yes SUBJECTIVE: Klonopin - takes it in the morning Remeron - takes it at night Effexor - morning Sleep - not the best - due to the pain. Mood - okay Has been doing okay, back on the up. Was recently put in hospice. Taking it one day at a time. Has a anesthesiology crna coming in 1 day/week. Talks to and son some times and finds it comforting. Panic attack - last was 3 weeks ago, has about 1-2 per month. OBJECTIVE/MENTAL STATUS EXAM: 1. APPEARANCE: unable to assess due to phone visit 2. BEHAVIOR: cooperative, calm 3. ORIENTATION: Oriented to time, person AND place 4. SPEECH: spontaneous, normal rate and flow 5. THOUGHT PROCESS: organized 6. THOUGHT CONTENT: No evidence of paranoia, No evidence of delusions. Denies SI/HI 7. PERCEPTIONS: No evidence of perceptual disturbance. Denies AH/VH 8. MOOD: euthymic 9. AFFECT: limited due to due to phone visit 10. ATTENTION/CONCENTRATION: Sustained 11. RECENT AND REMOTE MEMORY: Within normal limits 12. JUDGMENT AND INSIGHT: Fair 13. MUSCULOSKELETAL: unable to assess due to phone visit 14. RIGIDITY: unable to assess due to phone visit Cognitive function is sufficient for dialogue with therapist: Yes Suicide Screener: C-SSRS [place]-Suicide Severity Rating Scale Able to complete [place]-Suicide Severity Rating Scale with Patient?: Yes 1) Wish to be : No 2) Current suicidal thoughts: No 6) C-SSRS Suicidal Behavior: No Risk of Suicide: Negative Screen Did patient score moderate or high risk on the C-SSRS?: No SAFE-T PAIN ASSESSMENT: Patient did not report pain today but does have pain issues. LAB STUDIES AND TESTS: None today IMPRESSION: No acute safety concerns Denies SE from medications Denies SI, HI, AH, VH, paranoia Mood stable DIAGNOSIS: Major Depressive Disorder, recurrent, moderate General Anxiety Disorder Panic Disorder Bereavement Active/pertinent medical issues impacting patient presentation: Past Medical History: Diagnosis Date COPD (chronic obstructive pulmonary disease) (HCC) DVT (deep venous thrombosis) (HCC) recurrent; ? PE (pt denies) Hemorrhoids had colonscopy 10 y ago Hiatal hernia HTN (hypertension) Hyperlipidemia Hypothyroidism Morbid obesity (HCC) STEPHANIE on CPAP Osteoporosis Prediabetes RA (rheumatoid arthritis) (HCC) neg RF and CCP on 03/09/15 Restless leg syndrome Stroke (HCC) Vitamin D deficiency MENTAL HEALTH INTERVENTIONS: Maintain med (more content not included)... Normal [employer] Bilirubin Test strip Ql (U)o n 05-01-2022 Bilirubin Ql (U) Negative Negative [facility] Work Phone: Ketones Test strip Ql (U)on 05-01-2022 Ketones Ql (U) 5 mg/dl Negative [facility] Work Phone: Nitrite Test strip Ql (U)on 05-01-2022 Nitrite Ql (U) Negative Negative [facility] Work Phone: Protein Test strip Ql (U)on 05-01-2022 Protein Ql (U) 15 mg/dl Negative [facility] Work Phone: Urine blood detectionon 04-22 RBC Ql (U) 10 /ul Negative [facility] Work Phone: Urine clarityon 05-01-2022 Clarity (U) Sl. Cloudy Clear [facility] Work Phone: Urine color determinationon 05-01-2022 Color (U) Yellow Yellow [facility] Work Phone: Urine glucose detectionon Glucose Ql (U) Normal mg/dl Normal [facility] Work Phone: [phone] Urine leukocyte esterase det ection by dipstickon 05-01-2022 Leukocyte esterase Test strip Ql (U) 500 /ul Negative [facility] Work Phone: Urine pHon 05-01-2022 pH (U) 5.0 [pH] 5.0 - 8.0 [facility] Work Phone: Urine specific gravity measu rementon 05-01-2022 Specific gravity (U) [Rel density] 1.015 1.002-1.03 0 [facility] Work Phone: Urobilinogen Auto test strip Ql (U)on 05-01-2022 Urobilinogen Ql (U) Normal mg/dl Normal [facility] Work Phone: Telephone Encounteron 2021 [employer] Interface Message Text Last visit with Judy Gomez DO (Resident) Psychiatry 11/02/21 Normal [employer] Absolute lymphocyte counton 04-01-2022 Lymphocytes Auto (Unsp spec) [#/Vol] 2.14 10*3/uL 0.83-4.51 [facility] Work Phone: Basophil percentageon 2021 Basophils/100 WBC (Bld) 0.5 % 0-1 [facility] Work Phone: Chloride [Moles/Vol] 106 mmol/L 98-107 [facility] Work Phone: Eosinophils/100 WBC (Bld) 1.3 % 0-5 [facility] Work Phone: Glucose [Mass/Vol] 108 mg/dL 74-106 [facility] Work Phone: Comment on above: Fasting Glucose resu lt from 100 to 125 mg/dL suggests IMPAIRED HOMEOSTASIS per A.D.A. criteria. Neutrophils (Bld) [#/Vol] 5.7 10*3/uL 2.0-7.7 [facility] Work Phone: Neutrophils/100 WBC (Bld) 66.3 % 47-70 [facility] Work Phone: Potassium [Moles/Vol] 3.9 mmol/L 3.5-5.1 [facility] Work Phone: Sodium [Moles/Vol] 138 mmol/L 136-145 [facility] Work Phone: WBC (Bld) [#/Vol] 8.5 10*3/uL 4.4-11.0 [facility] Work Phone: Blood erythrocytes count (nu mber/volume)on 04-01-2022 RBC (Bld) [#/Vol] 3.17 10*6/uL 4.2-5.[address] [facility] Work Phone: Blood hemoglobin measurement (mass/volume)on 04-01-2022 Hemoglobin (Bld) [Mass/Vol] 8.3 g/dL 12.0-15.0 [facility] Work Phone: Blood lymphocytes/100 leukoc yteson 04-01-2022 Lymphocytes/100 WBC (Bld) 25.1 % 19-41 [facility] Work Phone: Blood monocytes/100 leukocyt eson 04-01-2022 Monocytes/100 WBC (Bld) 6.6 % 0-10 [facility] Work Phone: Blood platelet mean volumeon 04-01-2022 Platelet mean volume (Bld) [Entitic vol] 10.9 fL 6.2-12.0 [facility] Work Phone: [phone] Determination of erythrocyte mean corpuscular volume (MCV)on 04-01-2022 MCV (RBC) [Entitic vol] 84.5 fL 81-99 [facility] Work Phone: [phone] Hematocrit Auto (Bld) [Volum e fraction]on 04-01-2022 Hematocrit (Bld) [Volume fraction] 26.8 % 37-47 [facility] Work Phone: [phone] Laboratory - Chemistry and C hemistry - challengeon 04-01-2022 CO2 [Moles/Vol] 23.0 mmol/L 21.0-32.0 [facility] Work Phone: [phone] Magnesium [Mass/Vol] 2.1 mg/dL 1.6-2.6 [facility] Work Phone: [phone] Urea nitrogen/Creatinine [Mass ratio] 18.4 mg/mg 10-20 [facility] Work Phone: [phone] Laboratory - Hematology and Cell countson 04-01-2022 Erythrocyte distribution width (RBC) [Entitic vol] 49.7 fL 35.1-43.9 [facility] Work Phone: [phone] Erythrocyte distribution width (RBC) [Ratio] 15.9 % 11.6-14.6 [facility] Work Phone: [phone] Immature granulocytes/100 WBC (Bld) 0.200 % 0.0-0.9 [facility] Work Phone: [phone] Comment on above: IG% - Immature Granu locytes (promyelocytes, myelocytes and metamyelocytes) > 1% indicates that a LEFT SHIFT is Present. MCH (RBC) [Entitic mass] 26.2 pg 27.0-32.0 [facility] Work Phone: [phone] Nucleated RBC/100 WBC (Bld) [Ratio] 0 % 0-5 [facility] Work Phone: [phone] MCHC Auto (RBC) [Mass/Vol]on 04-01-2022 MCHC (RBC) [Mass/Vol] 31.0 g/dL 32-36 [facility] Work Phone: No Panel Informationon 04-01 Troponin I High Sensitivity 7 pg/mL 3.0-54.0 [facility] Work Phone: Comment on above: Please Note: New Daniella t Units and Gender Specific Reference Ranges. For more information see Policy Stat Procedure Brock High Sensitivity Troponin (TNIH) and attachments. Estimated Creatinine Clearance Calc 57.09 ml/min [facility] Work Phone: Estimated GFR (MDRD) Amer 71 mL/min >60 [facility] Work Phone: Comment on above: GFR Calc Estimated GFR (MDRD) Non-Af Amer 59 mL/min >60 [facility] Work Phone: Comment on above: Non- GFR Calc Platelets bldon 04-01-2022 Platelets (Bld) [#/Vol] 373 10*3/uL 150-450 [facility] Work Phone: Serum or plasma calcium paddy urement (mass/volume)on 04-01-2022 Calcium [Mass/Vol] 9.2 mg/dL 8.5-10.1 [facility] Work Phone: Serum or plasma creatinine m easurement (mass/volume)on 04-01-2022 Creatinine [Mass/Vol] 1.03 mg/dL 0.55-1.02 [facility] Work Phone: Comment on above: The validity of the calculated GFR & GFRAA in patients over 70 years has not been determined. Clinical correlation is essential. Serum or plasma urea nitroge n measurement (mass/volume)on 04-01-2022 Urea nitrogen [Mass/Vol] 19 mg/dL 7-18 [facility] Work Phone: Thin prep Papanicolaou smear with manual screeningon 04-01-2022 Thin prep Papanicolaou smear with manual screening 9 5-15 [facility] Work Phone: Telephone Encounteron 2021 [employer] Interface Message Text Remeron last ordered on 12/27/21 for a 90 day supply with no refills. Pended 90 day supply. Normal [employer] Telephone Encounteron 2021 [employer] Authentication Interface Message Text Last visit with Psychiatry Tom Montelongo was 02/08/2022 Next visit with Psychiatry (Tom Montelongo) is 05/10/2022 [facility] Absolute lymphocyte counton 03-06-2022 Lymphocytes Auto (Unsp spec) [#/Vol] 2.28 10*3/uL 0.83-4.51 [facility] Work Phone: Basophil percentageon 2021 Basophil percentage 5-10 SEEN /hpf 0-5 W [facility] Work Phone: Basophils/100 WBC (Bld) 0.5 % 0-1 [facility] Work Phone: Chloride [Moles/Vol] 105 mmol/L 98-107 [facility] Work Phone: Eosinophils/100 WBC (Bld) 2.0 % 0-5 [facility] Work Phone: Glucose [Mass/Vol] 98 mg/dL 74-106 [facility] Work Phone: Neutrophils (Bld) [#/Vol] 5.6 10*3/uL 2.0-7.7 [facility] Work Phone: Neutrophils/100 WBC (Bld) 64.6 % 47-70 [facility] Work Phone: Potassium [Moles/Vol] 4.5 mmol/L 3.5-5.1 [facility] Work Phone: Sodium [Moles/Vol] 138 mmol/L 136-145 [facility] Work Phone: WBC (Bld) [#/Vol] 8.6 10*3/uL 4.4-11.0 [facility] Work Phone: Bilirubin Test strip Ql (U)o n 03-06-2022 Bilirubin Ql (U) Negative Negative [facility] Work Phone: Blood erythrocytes count (nu mber/volume)on 03-06-2022 RBC (Bld) [#/Vol] 2.82 10*6/uL 4.2-5.[address] [facility] Work Phone: Blood hemoglobin measurement (mass/volume)on 03-06-2022 Hemoglobin (Bld) [Mass/Vol] 7.9 g/dL 12.0-15.0 [facility] Work Phone: [phone] Blood lymphocytes/100 leukoc yteson 03-06-2022 Lymphocytes/100 WBC (Bld) 26.6 % 19-41 [facility] Work Phone: [phone] Blood monocytes/100 leukocyt eson 03-06-2022 Monocytes/100 WBC (Bld) 6.1 % 0-10 [facility] Work Phone: Blood platelet mean volumeon 03-06-2022 Platelet mean volume (Bld) [Entitic vol] 10.3 fL 6.2-12.0 [facility] Work Phone: Determination of erythrocyte mean corpuscular volume (MCV)on 03-06-2022 MCV (RBC) [Entitic vol] 92.6 fL 81-99 [facility] Work Phone: Hematocrit Auto (Bld) [Volum e fraction]on 03-06-2022 Hematocrit (Bld) [Volume fraction] 26.1 % 37-47 [facility] Work Phone: Hyaline casts LM.LPF (Urine sed) [#/Area]on 03-06-2022 Hyaline casts (Urine sed) [#/Area] 0 /[LPF] 0-5 [facility] Work Phone: Ketones Test strip Ql (U)on 03-06-2022 Ketones Ql (U) 5 mg/dl Negative [facility] Work Phone: [phone] Laboratory - Chemistry and C hemistry - challengeon 03-06-2022 CO2 [Moles/Vol] 26.0 mmol/L 21.0-32.0 [facility] Work Phone: Urea nitrogen/Creatinine [Mass ratio] 20.5 mg/mg 10-20 [facility] Work Phone: Laboratory - Hematology and Cell countson 03-06-2022 Erythrocyte distribution width (RBC) [Entitic vol] 50.5 fL 35.1-43.9 [facility] Work Phone: [phone] Erythrocyte distribution width (RBC) [Ratio] 14.9 % 11.6-14.6 [facility] Work Phone: [phone] Immature granulocytes/100 WBC (Bld) 0.200 % 0.0-0.9 [facility] Work Phone: [phone] Comment on above: IG% - Immature Granu locytes (promyelocytes, myelocytes and metamyelocytes) > 1% indicates that a LEFT SHIFT is Present. MCH (RBC) [Entitic mass] 28.0 pg 27.0-32.0 [facility] Work Phone: [phone] Nucleated RBC/100 WBC (Bld) [Ratio] 0.2 % 0-5 [facility] Work Phone: [phone] MCHC Auto (RBC) [Mass/Vol]on 03-06-2022 MCHC (RBC) [Mass/Vol] 30.3 g/dL 32-36 [facility] Work Phone: Mucus LM Ql (Urine sed)on Mucus Ql (Urine sed) 1+ /hpf [facility] Work Phone: [phone] Nitrite Test strip Ql (U)on 03-06-2022 Nitrite Ql (U) Negative Negative [facility] Work Phone: [phone] Panel Informationon 03-06 Estimated Creatinine Clearance Calc 66.82 ml/min [facility] Work Phone: [phone] Estimated GFR (MDRD) Amer 86 mL/min >60 [facility] Work Phone: [phone] Comment on above: GFR Calc Estimated GFR (MDRD) Non-Af Amer 71 mL/min >60 [facility] Work Phone: [phone] Comment on above: Non- GFR Calc Platelets bldon 03-06-2022 Platelets (Bld) [#/Vol] 346 10*3/uL 150-450 [facility] Work Phone: Protein Test strip Ql (U)on 03-06-2022 Protein Ql (U) 15 mg/dl Negative [facility] Work Phone: [phone] Serum or plasma calcium paddy urement (mass/volume)on 03-06-2022 Calcium [Mass/Vol] 9.5 mg/dL 8.5-10.1 [facility] Work Phone: Serum or plasma creatinine m easurement (mass/volume)on 03-06-2022 Creatinine [Mass/Vol] 0.88 mg/dL 0.55-1.02 [facility] Work Phone: Comment on above: The validity of the calculated GFR & GFRAA in patients over 70 years has not been determined. Clinical correlation is essential. Serum or plasma urea nitroge n measurement (mass/volume)on 03-06-2022 Urea nitrogen [Mass/Vol] 18 mg/dL 7-18 [facility] Work Phone: Squamous epithelial cells de tection in urine sediment by light microscopyon 03-06-2022 Epithelial cells.squamous LM Ql (Urine sed) 0-5 SEEN /hpf 5-10 [facility] Work Phone: Thin prep Papanicolaou smear with manual screeningon 03-06-2022 Thin prep Papanicolaou smear with manual screening 7 12-04 [facility] Work Phone: Urine blood detectionon 02-20 RBC Ql (U) Negative Negative [facility] Work Phone: [phone] RBC Ql (U) 0 SEEN /hpf 0-5 [facility] Work Phone: [phone] Urine clarityon 03-06-2022 Clarity (U) Clear Clear [facility] Work Phone: [phone] Urine color determinationon 03-06-2022 Color (U) Yellow Yellow [facility] Work Phone: [phone] Urine glucose detectionon Glucose Ql (U) Normal mg/dl Normal [facility] Work Phone: Urine leukocyte esterase det ection by dipstickon 03-06-2022 Leukocyte esterase Test strip Ql (U) 100 /ul Negative [facility] Work Phone: Urine pHon 03-06-2022 pH (U) 6.0 [pH] 5.0 - 8.0 [facility] Work Phone: Urine sediment bacteria coun t by microscopy (number/high power field)on 03-06-2022 Bacteria LM.HPF (Urine sed) [#/Area] 1 /[HPF] None Seen [facility] Work Phone: Urine specific gravity measu rementon 03-06-2022 Specific gravity (U) [Rel density] 1.020 1.002-1.03 0 [facility] Work Phone: Urobilinogen Auto test strip Ql (U)on 03-06-2022 Urobilinogen Ql (U) Normal mg/dl Normal [facility] Work Phone: US DVT LOWER LTon 02-21-2022 US DVT LOWER LT * * *Final Report* * * DATE OF EXAM: Feb 21 2022 3:49PM LDU 1006 - US DVT LOWER LT / PROCEDURE REASON: Left leg pain * * * * Physician Interpretation * * * * EXAMINATION: LEFT LOWER EXTREMITY DEEP VENOUS ULTRASOUND WITH DOPPLER IMAGING CLINICAL HISTORY: Leg pain or tenderness. History of DVT. TECHNIQUE: Grayscale with compression maneuvers, color Doppler and spectral Doppler imaging of the left proximal deep veins was performed. Grayscale with compression maneuvers of the peroneal and posterior tibial veins was performed. The left great and small saphenous veins were evaluated at their insertion to the deep system. The contralateral common femoral vein was imaged for comparison. Images were obtained and stored in a permanent archive. MQ: [id number] COMPARISON: None RESULT: LEFT LOWER EXTREMITY PROXIMAL DEEP VEINS Distal External Iliac, Common Femoral and proximal Profunda Veins: Compression: Normal Doppler: Normal, spontaneous respirophasic flow. Normal response to augmentation. Femoral vein: Compression: Normal Doppler: Normal, spontaneous flow. Normal response to augmentation. Popliteal vein: Compression: Normal Doppler: Normal, spontaneous flow. Normal response to augmentation. CALF DEEP VEINS Peroneal veins: Normal compression. Posterior tibial veins: Normal compression. Gastrocnemius and Soleal veins: Not imaged. SUPERFICIAL VEINS Great saphenous: Patent and compressible at insertion into common femoral vein; not otherwise assessed. Small Saphenous: Patent and compressible in the proximal calf, not otherwise assessed. RIGHT LOWER EXTREMITY (FOR COMPARISON) Common Femoral Vein: Compression: Normal Doppler: Normal, spontaneous respirophasic flow. Normal response to augmentation. IMPRESSION: Negative study for proximal DVT in the left lower extremity. Negative study for calf DVT in the left lower extremity. Negative study for superficial thrombophlebitis in the imaged segments of the left lower extremity. Electric [employer] Mechanic: OLVIN Transcribe Date/Time: Feb 21 2022 3:54P Dictated by : VERA ELIZABETH MD This examination was interpreted and the report reviewed and electronically signed by: VERA ELIZABETH MD on Feb 21 2022 3:56PM EST [id number] Normal [facility] PÉREZ SCREENINGon 02-20-2022 [facility] Addendum Noteon 02-13-2022 [employer] Interface Message Text Addended by: MINNIE EDWARDS on: 02/13/2022 04:20 PM Modules accepted: Level of Service Normal [employer] Progress Noteson 02-08-2022 [employer] Authentication Interface Message Text Documentation: Mode: Telephone Patient Patient Work Phone: Patient Cell Preferred phone: [phone] Consent: I confirmed patient understanding of the risks and benefits of telehealth visits and obtained consent to proceed with the telehealth visit. Location of Patient: Home of patient Telephone Encounter This visit was initiated by the patient / provider and the patient and provider interacted in real time. Location of the patient: Home of patient Location of the provider: [facility] Reviewed informed consent with patient: yes - see MR Patient/parent indicated understanding of informed consent: yes see MR Phone numbers Preferred phone #: [phone] Verified number (above) and current location (in MR) as well as privacy and minimization of distractions. Agreed provider would call pt back if call was disconnected. Patient provided two identifiers Total Time Spent with Patient: 32 minutes for Pharmacological Management , of which greater than 50% was spent on counseling or coordinating care. PHARMACOLOGIC MANAGEMENT: 02/08/2022 START TIME: 10:10 AM END TIME: 10:48 AM Service Authorized by Treatment Plan/ISP: Yes MEDICATIONS: Current Outpatient Medications on File Prior to Visit Medication Sig Dispense Refill * venlafaxine (EFFEXOR XR) 150 MG ER capsule TAKE 1 CAPSULE BY MOUTH ONCE DAILY 30 Capsule 2 * mirtazapine (REMERON) 7.5 MG tablet TAKE 1 TABLET BY MOUTH EVERY NIGHT AT BEDTIME *EMERGENCY REFILL* 90 Tablet 0 * clonazePAM (KlonoPIN) 0.5 MG tablet Take 1 Tablet by mouth 2 times daily as needed for Anxiety for up to 90 days. 45 Tablet 2 * aluminum AND magnesium hydroxide-simethicone (MAALOX REGULAR STRENGTH) 200-200-20 MG/5ML suspension Take 15 mL by mouth every 6 hours as needed for Other. 1 Bottle 3 * nicotine (NICODERM CQ) 14 MG/24HR patch Place 1 Patch on the skin every 24 hours. 30 Patch 3 * atorvastatin (LIPITOR) 20 MG tablet Take 1 Tablet by mouth at bedtime. 30 Tablet 2 * losartan (COZAAR) 100 MG tablet Take 1 Tablet by mouth daily. 30 Tablet 3 * albuterol (PROAIR HFA) inhaler 90 mcg/inh Inhale 2 Puffs. * Cholecalciferol (VITAMIN D) 2000 UNITS CAPS Take 2,000 Units by mouth daily. 30 Cap 11 No current facility-administered medications on file prior to visit. SIDE EFFECTS: None reported. SIGNIFICANT LIFE CHANGES/UPDATE: None reported. Found son was recently. OARRS: Reviewed today, no concerns Treatment Plan Goal Addressed Today: Yes SUBJECTIVE: Still has been feeling very anxious. Son was missing for a couple months - filed a missing person report, found out that that he was . Sleep - poor Son used to be living together. about a year ago, then she had a blood clot in her brain and then her son . Denies SI/intent/plan Doesn't have any social support Is wheelchair bound wants grief counseling. Still has times where she talks to the and the son. Finds it comforting to talk to them. Medications - Klonopin - 1 or 2 times per day, Effexor - I dont see much of a difference and Remeron - not as helpful Has a dog 'Liz. Anxiety - has been high, especially because she lives alone. Hard for her to even take her trash out and stuff - feels trapped. Tried talking to her brother and sister in law. PCP has been trying to get her assisted living, considering other living options too. Panic - has them a couple times per week. Seizures - hasn't had for a while. OBJECTIVE/MENTAL STATUS EXAM: 1. APPEARANCE: unable to assess due to phone visit 2. BEHAVIOR: cooperative, calm 3. ORIENTATION: Oriented to time, person AND place 4. SPEECH: spontaneous, normal rate and flow 5. THOUGHT PROCESS: organized 6. THOUGHT CONTENT: No evidence of paranoia, No evidence of delusions. Denies SI/HI 7. PERCEPTIONS: No evidence of perceptual disturbance. Denies AH/VH 8. MOOD: low 9. AFFECT: limited due to due to phone visit 10. ATTENTION/CONCENTRATION: Sustained 11. RECENT AND REMOTE MEMORY: Within normal limits 12. JUDGMENT AND INSIGHT: Fair 13. MUSCULOSKELETAL: unable to assess due to phone visit 14. RIGIDITY: unable to assess due to phone visit Cognitive function is sufficient for dialogue with therapist: Yes Suicide Screener: C-SSRS [place]-Suicide Severity Rating Scale Able to complete [place]-Suicide Severity Rating Scale with Patient?: Yes 1) Wish to be : No 2) Current suicidal thoughts: No 6) C-SSRS Suicidal Behavior: No Risk of Suicide: Negative Screen Did patient score moderate or high risk on the C-SSRS?: No SAFE-T PAIN ASSESSMENT: Patient did not report pain today. LAB STUDIES AND TESTS: None today IMPRESSION: No acute safety concerns Denies SE from medications Denies SI, HI, AH, VH, paranoia Has had a lot kristian stressors over the last 1 y (more content not included)... Normal [employer] Absolute lymphocyte counton 01-19-2022 Lymphocytes Auto (Unsp spec) [#/Vol] 2.22 10*3/uL 0.83-4.51 [facility] Work Phone: Basophil percentageon 2021 Basophils/100 WBC (Bld) 0.5 % 0-1 [facility] Work Phone: Chloride [Moles/Vol] 106 mmol/L 98-107 [facility]: Eosinophils/100 WBC (Bld) 1.4 % 0-5 [facility] Work Phone: Glucose [Mass/Vol] 97 mg/dL 74-106 [facility] Work Phone: Neutrophils (Bld) [#/Vol] 2.8 10*3/uL 2.0-7.7 [facility] Work Phone: Neutrophils/100 WBC (Bld) 49.8 % 47-70 [facility] Work Phone: Potassium [Moles/Vol] 4.1 mmol/L 3.5-5.1 [facility] Work Phone: Sodium [Moles/Vol] 140 mmol/L 136-145 [facility] Work Phone: WBC (Bld) [#/Vol] 5.6 10*3/uL 4.4-11.0 [facility] Work Phone: Blood erythrocytes count (nu mber/volume)on 01-19-2022 RBC (Bld) [#/Vol] 2.56 10*6/uL 4.2-5.[address] [facility] Work Phone: Blood hemoglobin measurement (mass/volume)on 01-19-2022 Hemoglobin (Bld) [Mass/Vol] 7.2 g/dL 12.0-15.0 [facility] Work Phone: Blood lymphocytes/100 leukoc yteson 01-19-2022 Lymphocytes/100 WBC (Bld) 39.8 % 19-41 [facility] Work Phone: Blood monocytes/100 leukocyt eson 01-19-2022 Monocytes/100 WBC (Bld) 8.1 % 0-10 [facility] Work Phone: Blood platelet mean volumeon 01-19-2022 Platelet mean volume (Bld) [Entitic vol] 10.2 fL 6.2-12.0 [facility] Work Phone: [phone] Determination of erythrocyte mean corpuscular volume (MCV)on 01-19-2022 MCV (RBC) [Entitic vol] 92.6 fL 81-99 [facility] Work Phone: [phone] Hematocrit Auto (Bld) [Volum e fraction]on 01-19-2022 Hematocrit (Bld) [Volume fraction] 23.7 % 37-47 [facility] Work Phone: [phone] Laboratory - Chemistry and C hemistry - challengeon 01-19-2022 CO2 [Moles/Vol] 29.0 mmol/L 21.0-32.0 [facility] Work Phone: [phone] Urea nitrogen/Creatinine [Mass ratio] 21.1 mg/mg 10-20 [facility] Work Phone: [phone] Laboratory - Hematology and Cell countson 01-19-2022 Erythrocyte distribution width (RBC) [Entitic vol] 50.0 fL 35.1-43.9 [facility] Work Phone: [phone] Erythrocyte distribution width (RBC) [Ratio] 14.7 % 11.6-14.6 [facility] Work Phone: [phone] Immature granulocytes/100 WBC (Bld) 0.400 % 0.0-0.9 [facility] Work Phone: [phone] Comment on above: IG% - Immature Granu locytes (promyelocytes, myelocytes and metamyelocytes) > 1% indicates that a LEFT SHIFT is Present. MCH (RBC) [Entitic mass] 28.1 pg 27.0-32.0 [facility] Work Phone: [phone] Nucleated RBC/100 WBC (Bld) [Ratio] 0 % 0-5 [facility] Work Phone: [phone] MCHC Auto (RBC) [Mass/Vol]on 01-19-2022 MCHC (RBC) [Mass/Vol] 30.4 g/dL 32-36 [facility] Work Phone: [phone] Panel Informationon 01-19 Estimated Creatinine Clearance Calc 79.61 ml/min [facility] Work Phone: Estimated GFR (MDRD) Amer 109 mL/min >60 [facility] Work Phone: [phone] Comment on above: GFR Calc Estimated GFR (MDRD) Non-Af Amer 90 mL/min >60 [facility] Work Phone: Comment on above: Non- GFR Calc Platelets bldon 01-19-2022 Platelets (Bld) [#/Vol] 190 10*3/uL 150-450 [facility] Work Phone: [phone] Serum or plasma calcium paddy urement (mass/volume)on 01-19-2022 Calcium [Mass/Vol] 8.6 mg/dL 8.5-10.1 [facility] Work Phone: [phone] Serum or plasma creatinine m easurement (mass/volume)on 01-19-2022 Creatinine [Mass/Vol] 0.71 mg/dL 0.55-1.02 [facility] Work Phone: [phone] Comment on above: The validity of the calculated GFR & GFRAA in patients over 70 years has not been determined. Clinical correlation is essential. Serum or plasma urea nitroge n measurement (mass/volume)on 01-19-2022 Urea nitrogen [Mass/Vol] 15 mg/dL 7-18 [facility] Work Phone: [phone] Thin prep Papanicolaou smear with manual screeningon 01-19-2022 Thin prep Papanicolaou smear with manual screening 5 5-15 [facility] Work Phone: [phone] Absolute lymphocyte counton 01-18-2022 Lymphocytes Auto (Unsp spec) [#/Vol] 2.28 10*3/uL 0.83-4.51 [facility] [facility] Work Phone: [phone] Basophil percentageon 2021 Bilirubin [Mass/Vol] 0.10 mg/dL 0.20-1.00 [facility] Work Phone: [phone] Comment on above: For patients on eltr ombopag therapy, use of Dimension Brock TBIL is not recommended. Protein [Mass/Vol] 6.9 g/dL 6.4-8.2 [facility] Work Phone: Basophils/100 WBC (Bld) 0.4 % 0-1 [facility] Work Phone: Bilirubin [Mass/Vol] 0.20 mg/dL 0.20-1.00 [facility] Work Phone: Comment on above: For patients on eltr ombopag therapy, use of Dimension Brock TBIL is not recommended. Chloride [Moles/Vol] 107 mmol/L 98-107 [facility] Work Phone: Eosinophils/100 WBC (Bld) 1.8 % 0-5 [facility] Work Phone: Glucose [Mass/Vol] 101 mg/dL 74-106 [facility] Work Phone: Comment on above: Fasting Glucose resu lt from 100 to 125 mg/dL suggests IMPAIRED HOMEOSTASIS per A.D.A. criteria. Neutrophils (Bld) [#/Vol] 4.1 10*3/uL 2.0-7.7 [facility] Work Phone: Neutrophils/100 WBC (Bld) 57.9 % 47-70 [facility] Work Phone: Potassium [Moles/Vol] 4.5 mmol/L 3.5-5.1 [facility] Work Phone: Protein [Mass/Vol] 7.4 g/dL 6.4-8.2 [facility] Work Phone: Sodium [Moles/Vol] 140 mmol/L 136-145 [facility] Work Phone: WBC (Bld) [#/Vol] 7.1 10*3/uL 4.4-11.0 [facility] Work Phone: Blood erythrocytes count (nu mber/volume)on 01-18-2022 RBC (Bld) [#/Vol] 2.61 10*6/uL 4.2-5.[address] [facility] Work Phone: Blood hemoglobin measurement (mass/volume)on 01-18-2022 Hemoglobin (Bld) [Mass/Vol] 7.2 g/dL 12.0-15.0 [facility] Work Phone: Blood lymphocytes/100 leukoc yteson 01-18-2022 Lymphocytes/100 WBC (Bld) 32.0 % 19-41 [facility] Work Phone: [phone] Blood monocytes/100 leukocyt eson 01-18-2022 Monocytes/100 WBC (Bld) 7.6 % 0-10 [facility] Work Phone: Blood platelet mean volumeon 01-18-2022 Platelet mean volume (Bld) [Entitic vol] 11.0 fL 6.2-12.0 [facility] Work Phone: [phone] Determination of erythrocyte mean corpuscular volume (MCV)on 01-18-2022 MCV (RBC) [Entitic vol] 93.9 fL 81-99 [facility] Work Phone: [phone] Hematocrit Auto (Bld) [Volum e fraction]on 01-18-2022 Hematocrit (Bld) [Volume fraction] 24.5 % 37-47 [facility] Work Phone: INR in Blood by Coagulation assayon 01-18-2022 INR Coag (Bld) [Relative time] 1.4 {INR} [facility] Work Phone: [phone] Iron measurement (mass/mass) on 01-18-2022 Iron (Unsp spec) [Mass/Mass] 16 ug/dL 50-170 [facility] Work Phone: Laboratory - Chemistry and C hemistry - challengeon 01-18-2022 ALP [Catalytic activity/Vol] 112 U/L 45-117 [facility] Work Phone: ALT [Catalytic activity/Vol] 17 U/L 13-56 [facility] Work Phone: [phone] Cobalamin (Vitamin B12) [Mass/Vol] 343 pg/mL 211-911 [facility] Work Phone: [phone] Free T4 [Mass/Vol] 0.83 ng/dL 0.76-1.46 [facility] Work Phone: Globulin (S) [Mass/Vol] 3.8 g/dL 2.2-4.2 [facility] Work Phone: ALP [Catalytic activity/Vol] 115 U/L 45-117 [facility] Work Phone: [phone] ALT [Catalytic activity/Vol] 23 U/L 13-56 [facility] Work Phone: [phone] CO2 [Moles/Vol] 28.0 mmol/L 21.0-32.0 [facility] Work Phone: [phone] Globulin (S) [Mass/Vol] 4.0 g/dL 2.2-4.2 [facility] Work Phone: [phone] Lipase [Catalytic activity/Vol] 139 U/L 73-393 [facility] Work Phone: [phone] Urea nitrogen/Creatinine [Mass ratio] 23.0 mg/mg 10-20 [facility] Work Phone: Laboratory - Coagulationon 0 01-18-2022 PT Coag (PPP) [Time] 17.0 s 11.7-14.9 [facility] Work Phone: Laboratory - Hematology and Cell countson 01-18-2022 Erythrocyte distribution width (RBC) [Entitic vol] 50.7 fL 35.1-43.9 [facility] Work Phone: [phone] Erythrocyte distribution width (RBC) [Ratio] 14.6 % 11.6-14.6 [facility] Work Phone: [phone] Immature granulocytes/100 WBC (Bld) 0.300 % 0.0-0.9 [facility] Work Phone: Comment on above: IG% - Immature Granu locytes (promyelocytes, myelocytes and metamyelocytes) > 1% indicates that a LEFT SHIFT is Present. MCH (RBC) [Entitic mass] 27.6 pg 27.0-32.0 [facility] Work Phone: Nucleated RBC/100 WBC (Bld) [Ratio] 0 % 0-5 [facility] Work Phone: [phone] MCHC Auto (RBC) [Mass/Vol]on 01-18-2022 MCHC (RBC) [Mass/Vol] 29.4 g/dL 32-36 [facility] Work Phone: No Panel Informationon 01-18 Thyroid Stimulating Hormone (TSH) 2.48 uIU/mL 0.358-3.74 [facility] Work Phone: [phone] Iron Binding Capacity 391 ug/dL 250-450 [facility] Work Phone: [phone] Estimated Creatinine Clearance Calc 64.97 ml/min [facility] Work Phone: [phone] Estimated GFR (MDRD) Amer 87 mL/min >60 [facility] Work Phone: [phone] Comment on above: GFR Calc Estimated GFR (MDRD) Non-Af Amer 72 mL/min >60 [facility] Work Phone: [phone] Comment on above: Non- GFR Calc Troponin I High Sensitivity 4 pg/mL 3.0-54.0 [facility] Work Phone: [phone] Comment on above: Please Note: New Daniella t Units and Gender Specific Reference Ranges. For more information see Policy Stat Procedure Brock High Sensitivity Troponin (TNIH) and attachments. Platelets bldon 01-18-2022 Platelets (Bld) [#/Vol] 249 10*3/uL 150-450 [facility] Work Phone: [phone] Serum or plasma albumin paddy urement (mass/volume)on 01-18-2022 Albumin [Mass/Vol] 3.1 g/dL 3.2-5.0 [facility] Work Phone: [phone] Albumin [Mass/Vol] 3.4 g/dL 3.2-5.0 oste r [facility] Work Phone: [phone] Serum or plasma albumin/glob ulin mass ratioon 01-18-2022 Albumin/Globulin [Mass ratio] 0.8 {ratio} 0.9-2.4 [facility] Work Phone: [phone] Albumin/Globulin [Mass ratio] 0.8 {ratio} 0.9-2.4 [facility] Work Phone: [phone] Serum or plasma calcium paddy urement (mass/volume)on 01-18-2022 Calcium [Mass/Vol] 8.8 mg/dL 8.5-10.1 [facility] Work Phone: [phone] Serum or plasma creatinine m easurement (mass/volume)on 01-18-2022 Creatinine [Mass/Vol] 0.87 mg/dL 0.55-1.02 [facility] Work Phone: [phone] Comment on above: The validity of the calculated GFR & GFRAA in patients over 70 years has not been determined. Clinical correlation is essential. Serum or plasma ferritin phil surement (mass/volume)on 01-18-2022 Ferritin [Mass/Vol] 7 ng/mL 8-[address] [facility] Work Phone: [phone] Serum or plasma folate measu rement (mass/volume)on 01-18-2022 Folate [Mass/Vol] 12.30 ng/mL 3.1-55.4 [facility] Work Phone: [phone] Serum or plasma iron saturat ion measurement (mass fraction)on 01-18-2022 Iron saturation [Mass fraction] 4.1 % 15.0-55.0 [facility] Work Phone: [phone] Serum or plasma urea nitroge n measurement (mass/volume)on 01-18-2022 Urea nitrogen [Mass/Vol] 20 mg/dL 7-18 [facility] Work Phone: [phone] Thin prep Papanicolaou smear with manual screeningon 01-18-2022 Thin prep Papanicolaou smear with manual screening 51 U/L 15 [facility] Work Phone: [phone] Thin prep Papanicolaou smear with manual screening 57 U/L 1537 [facility] Work Phone: [phone] Thin prep Papanicolaou smear with manual screening 5 5-15 [facility] Work Phone: [phone] Absolute lymphocyte counton 01-15-2022 Lymphocytes Auto (Unsp spec) [#/Vol] 2.34 10*3/uL 0.83-4.51 [facility] Work Phone: Basophil percentageon 2021 Basophils/100 WBC (Bld) 0.6 % 0-1 [facility] Work Phone: Chloride [Moles/Vol] 111 mmol/L 98-107 [facility] Work Phone: Eosinophils/100 WBC (Bld) 1.8 % 0-5 [facility] Work Phone: Glucose [Mass/Vol] 89 mg/dL 74-106 [facility] Work Phone: Neutrophils (Bld) [#/Vol] 4.8 10*3/uL 2.0-7.7 [facility] Work Phone: Neutrophils/100 WBC (Bld) 61.3 % 47-70 [facility] Work Phone: Potassium [Moles/Vol] 4.6 mmol/L 3.5-5.1 [facility] Work Phone: Sodium [Moles/Vol] 138 mmol/L 136-145 [facility] Work Phone: WBC (Bld) [#/Vol] 7.8 10*3/uL 4.4-11.0 [facility] Work Phone: Blood erythrocytes count (nu mber/volume)on 01-15-2022 RBC (Bld) [#/Vol] 2.65 10*6/uL 4.2-5.[address] [facility] Work Phone: Blood hemoglobin measurement (mass/volume)on 01-15-2022 Hemoglobin (Bld) [Mass/Vol] 7.3 g/dL 12.0-15.0 [facility] Work Phone: Blood lymphocytes/100 leukoc yteson 01-15-2022 Lymphocytes/100 WBC (Bld) 30.2 % 19-41 [facility] Work Phone: Blood monocytes/100 leukocyt eson 01-15-2022 Monocytes/100 WBC (Bld) 5.8 % 0-10 [facility] Work Phone: Blood platelet mean volumeon 01-15-2022 Platelet mean volume (Bld) [Entitic vol] 11.2 fL 6.2-12.0 [facility] Work Phone: Determination of erythrocyte mean corpuscular volume (MCV)on 01-15-2022 MCV (RBC) [Entitic vol] 94.0 fL 81-99 [facility] Work Phone: Hematocrit Auto (Bld) [Volum e fraction]on 01-15-2022 Hematocrit (Bld) [Volume fraction] 24.9 % 37-47 [facility] Work Phone: INR in Blood by Coagulation assayon 01-15-2022 INR Coag (Bld) [Relative time] 1.7 {INR} [facility] Work Phone: Laboratory - Chemistry and C hemistry - challengeon 01-15-2022 CO2 [Moles/Vol] 24.0 mmol/L 21.0-32.0 [facility] Work Phone: Urea nitrogen/Creatinine [Mass ratio] 30.1 mg/mg 10-20 [facility] Work Phone: Laboratory - Coagulationon 0 01-15-2022 aPTT Coag (Bld) [Time] 41.2 s 24.1-36.2 [facility] Work Phone: PT Coag (PPP) [Time] 19.6 s 11.7-14.9 [facility] Work Phone: Laboratory - Hematology and Cell countson 01-15-2022 Erythrocyte distribution width (RBC) [Entitic vol] 50.2 fL 35.1-43.9 [facility] Work Phone: Erythrocyte distribution width (RBC) [Ratio] 14.6 % 11.6-14.6 [facility] Work Phone: Immature granulocytes/100 WBC (Bld) 0.300 % 0.0-0.9 [facility] Work Phone: Comment on above: IG% - Immature Granu locytes (promyelocytes, myelocytes and metamyelocytes) > 1% indicates that a LEFT SHIFT is Present. MCH (RBC) [Entitic mass] 27.5 pg 27.0-32.0 [facility] Work Phone: Nucleated RBC/100 WBC (Bld) [Ratio] 0 % 0-5 [facility] Work Phone: MCHC Auto (RBC) [Mass/Vol]on 01-15-2022 MCHC (RBC) [Mass/Vol] 29.3 g/dL 32-36 [facility] Work Phone: No Panel Informationon 01-15 Estimated Creatinine Clearance Calc 47.81 ml/min [facility] Work Phone: Estimated GFR (MDRD) Amer 58 mL/min >60 [facility] Work Phone: Comment on above: GFR Calc Estimated GFR (MDRD) Non-Af Amer 48 mL/min >60 [facility] Work Phone: Comment on above: Non- GFR Calc Troponin I High Sensitivity < 3 pg/mL 3.0-54.0 [facility] Work Phone: Comment on above: Please Note: New Daniella t Units and Gender Specific Reference Ranges. For more information see Policy Stat Procedure Brock High Sensitivity Troponin (TNIH) and attachments. Platelets bldon 01-15-2022 Platelets (Bld) [#/Vol] 272 10*3/uL 150-450 [facility] Work Phone: Serum or plasma calcium paddy urement (mass/volume)on 01-15-2022 Calcium [Mass/Vol] 8.7 mg/dL 8.5-10.1 [facility] Work Phone: [phone] Serum or plasma creatinine m easurement (mass/volume)on 01-15-2022 Creatinine [Mass/Vol] 1.23 mg/dL 0.55-1.02 [facility] Work Phone: Comment on above: The validity of the calculated GFR & GFRAA in patients over 70 years has not been determined. Clinical correlation is essential. Serum or plasma urea nitroge n measurement (mass/volume)on 01-15-2022 Urea nitrogen [Mass/Vol] 37 mg/dL 7-18 [facility] Work Phone: Thin prep Papanicolaou smear with manual screeningon 01-15-2022 Thin prep Papanicolaou smear with manual screening 3 5-15 [facility] Work Phone: Telephone Encounteron 2021 [employer] Interface Message Text Last visit with Psychiatry (Judy Gomez) was on 11/02/21 Next visit with Psychiatry (Tom Montelongo) is scheduled for 02/08/22 Requested Prescriptions Pending Prescriptions Disp Refills * venlafaxine (EFFEXOR XR) 150 MG ER capsule [Pharmacy Med Name: VENLAFAXINE ER 150MG CAP 150 Capsule] 30 Capsule 2 Sig: TAKE 1 CAPSULE BY MOUTH ONCE DAILY No prior visit found with PCP (NAS BOOGIE) No future appointment with PCP (NAS BOOGIE) [facility] Absolute lymphocyte counton 01-10-2022 Lymphocytes Auto (Unsp spec) [#/Vol] 2.32 10*3/uL 0.83-4.51 [facility] Work Phone: Basophil percentageon 2021 Basophils/100 WBC (Bld) 0.8 % 0-1 [facility] Work Phone: Chloride [Moles/Vol] 110 mmol/L 98-107 [facility] Work Phone: Eosinophils/100 WBC (Bld) 2.1 % 0-5 [facility] Work Phone: Glucose [Mass/Vol] 118 mg/dL 74-106 [facility] Work Phone: Comment on above: Fasting Glucose resu lt from 100 to 125 mg/dL suggests IMPAIRED HOMEOSTASIS per A.D.A. criteria. Neutrophils (Bld) [#/Vol] 4.2 10*3/uL 2.0-7.7 [facility] Work Phone: Neutrophils/100 WBC (Bld) 57.7 % 47-70 [facility] Work Phone: Potassium [Moles/Vol] 4.2 mmol/L 3.5-5.1 [facility] Work Phone: Sodium [Moles/Vol] 138 mmol/L 136-145 [facility] Work Phone: WBC (Bld) [#/Vol] 7.3 10*3/uL 4.4-11.0 [facility] Work Phone: Blood erythrocytes count (nu mber/volume)on 01-10-2022 RBC (Bld) [#/Vol] 3.14 10*6/uL 4.2-5.4 [facility] Work [facility]: Blood hemoglobin measurement (mass/volume)on 01-10-2022 Hemoglobin (Bld) [Mass/Vol] 8.6 g/dL 12.0-15.0 [facility] Work Phone: Blood lymphocytes/100 leukoc yteson 01-10-2022 Lymphocytes/100 WBC (Bld) 31.7 % 19-41 [facility] Work Phone: Blood monocytes/100 leukocyt eson 01-10-2022 Monocytes/100 WBC (Bld) 7.3 % 0-10 [facility] Work Phone: [phone] Blood platelet mean volumeon 01-10-2022 Platelet mean volume (Bld) [Entitic vol] 10.8 fL 6.2-12.0 [facility] Work Phone: Determination of erythrocyte mean corpuscular volume (MCV)on 01-10-2022 MCV (RBC) [Entitic vol] 90.1 fL 81-99 [facility] Work Phone: Hematocrit Auto (Bld) [Volum e fraction]on 01-10-2022 Hematocrit (Bld) [Volume fraction] 28.3 % 37-47 [facility] Work Phone: Laboratory - Chemistry and C hemistry - challengeon 01-10-2022 CO2 [Moles/Vol] 25.0 mmol/L 21.0-32.0 [facility] Work Phone: [phone] Urea nitrogen/Creatinine [Mass ratio] 27.4 mg/mg 10-20 [facility] Work Phone: [phone] Laboratory - Hematology and Cell countson 01-10-2022 Erythrocyte distribution width (RBC) [Entitic vol] 47.4 fL 35.1-43.9 [facility] Work Phone: [phone] Erythrocyte distribution width (RBC) [Ratio] 14.5 % 11.6-14.6 [facility] Work Phone: [phone] Immature granulocytes/100 WBC (Bld) 0.400 % 0.0-0.9 [facility] Work Phone: [phone] Comment on above: IG% - Immature Granu locytes (promyelocytes, myelocytes and metamyelocytes) > 1% indicates that a LEFT SHIFT is Present. MCH (RBC) [Entitic mass] 27.4 pg 27.0-32.0 [facility] Work Phone: [phone] Nucleated RBC/100 WBC (Bld) [Ratio] 0 % 0-5 [facility] Work Phone: [phone] MCHC Auto (RBC) [Mass/Vol]on 01-10-2022 MCHC (RBC) [Mass/Vol] 30.4 g/dL 32-36 [facility] Work Phone: [phone] No Panel Informationon 01-10 Estimated Creatinine Clearance Calc 55.48 ml/min [facility] Work Phone: [phone] Estimated GFR (MDRD) Amer 69 mL/min >60 [facility] Work Phone: [phone] Comment on above: GFR Calc Estimated GFR (MDRD) Non-Af Amer 57 mL/min >60 [facility] Work Phone: [phone] Comment on above: Non- GFR Calc Platelets bldon 01-10-2022 Platelets (Bld) [#/Vol] 275 10*3/uL 150-450 [facility] Work Phone: Serum or plasma calcium paddy urement (mass/volume)on 01-10-2022 Calcium [Mass/Vol] 8.9 mg/dL 8.5-10.1 [facility] Work Phone: Serum or plasma creatinine m easurement (mass/volume)on 01-10-2022 Creatinine [Mass/Vol] 1.06 mg/dL 0.55-1.02 [facility] Work Phone: Comment on above: The validity of the calculated GFR & GFRAA in patients over 70 years has not been determined. Clinical correlation is essential. Serum or plasma urea nitroge n measurement (mass/volume)on 01-10-2022 Urea nitrogen [Mass/Vol] 29 mg/dL 7-18 [facility] Work Phone: Thin prep Papanicolaou smear with manual screeningon 01-10-2022 Thin prep Papanicolaou smear with manual screening 3 5-15 [facility] Work Phone: Telephone Encounteron 2021 [employer] Interface Message Text Last visit with Judy Gomez DO Psychiatry was 11/02/21 Next visit with Tom Montelongo MD is 02/08/22 Requested Prescriptions Pending Prescriptions Disp Refills * mirtazapine (REMERON) 7.5 MG tablet [Pharmacy Med Name: MIRTAZAPINE 7.5 MG TABLET 7.5 Tablet] 90 Tablet 0 Sig: TAKE 1 TABLET BY MOUTH EVERY NIGHT AT BEDTIME *EMERGENCY REFILL* No prior visit found with PCP (NAS BOOGIE) No future appointment with PCP (NAS BOOGIE) Normal [employer] Absolute lymphocyte counton 12-14-2021 Lymphocytes Auto (Unsp spec) [#/Vol] 2.31 10*3/uL 0.83-4.51 [facility] Work Phone: Basophil percentageon 2021 Basophil percentage 25-50 SEEN /hpf 0-5 [facility] Work Phone: Basophils/100 WBC (Bld) 0.4 % 0-1 [facility] Work Phone: Chloride [Moles/Vol] 107 mmol/L 98-107 [facility] Work Phone: Eosinophils/100 WBC (Bld) 1.8 % 0-5 [facility] Work Phone: Glucose [Mass/Vol] 92 mg/dL 74-106 [facility] Work Phone: Neutrophils (Bld) [#/Vol] 8.2 10*3/uL 2.0-7.7 [facility] Work Phone: Neutrophils/100 WBC (Bld) 72.1 % 47-70 [facility] Work Phone: [phone] Potassium [Moles/Vol] 4.3 mmol/L 3.5-5.1 [facility] Work Phone: Comment on above: Slight Hemolysis, Re sult may be falsely increased. Sodium [Moles/Vol] 138 mmol/L 136-145 [facility] Work Phone: WBC (Bld) [#/Vol] 11.4 10*3/uL 4.4-11.[address] [facility] Work Phone: [phone] Bilirubin Test strip Ql (U)o n 12-14-2021 Bilirubin Ql (U) Negative Negative [facility] Work Phone: Blood erythrocytes count (nu mber/volume)on 12-14-2021 RBC (Bld) [#/Vol] 2.99 10*6/uL 4.2-5.[address] [facility] Work Phone: Blood hemoglobin measurement (mass/volume)on 12-14-2021 Hemoglobin (Bld) [Mass/Vol] 8.5 g/dL 12.0-15.0 [facility] Work Phone: Blood lymphocytes/100 leukoc yteson 12-14-2021 Lymphocytes/100 WBC (Bld) 20.3 % 19-41 [facility] Work Phone: Blood monocytes/100 leukocyt eson 12-14-2021 Monocytes/100 WBC (Bld) 5.0 % 0-10 [facility] Work Phone: [phone] Blood platelet mean volumeon 12-14-2021 Platelet mean volume (Bld) [Entitic vol] 10.6 fL 6.2-12.0 [facility] Work Phone: [phone] Determination of erythrocyte mean corpuscular volume (MCV)on 12-14-2021 MCV (RBC) [Entitic vol] 94.6 fL 81-99 [facility] Work Phone: [phone] Hematocrit Auto (Bld) [Volum e fraction]on 12-14-2021 Hematocrit (Bld) [Volume fraction] 28.3 % 37-47 [facility] Work Phone: [phone] Ketones Test strip Ql (U)on 12-14-2021 Ketones Ql (U) Negative Negative [facility] Work Phone: [phone] Laboratory - Chemistry and C hemistry - challengeon 12-14-2021 CO2 [Moles/Vol] 29.0 mmol/L 21.0-32.0 [facility] Work Phone: [phone] Urea nitrogen/Creatinine [Mass ratio] 20.5 mg/mg 10-20 [facility] Work Phone: [phone] Laboratory - Hematology and Cell countson 12-14-2021 Erythrocyte distribution width (RBC) [Entitic vol] 47.5 fL 35.1-43.9 [facility] Work Phone: [phone] Erythrocyte distribution width (RBC) [Ratio] 13.9 % 11.6-14.6 [facility] Work Phone: [phone] Immature granulocytes/100 WBC (Bld) 0.400 % 0.0-0.9 [facility] Work Phone: [phone] Comment on above: IG% - Immature Granu locytes (promyelocytes, myelocytes and metamyelocytes) > 1% indicates that a LEFT SHIFT is Present. MCH (RBC) [Entitic mass] 28.4 pg 27.0-32.0 [facility] Work Phone: [phone] Nucleated RBC/100 WBC (Bld) [Ratio] 0 % 0-5 [facility] Work Phone: MCHC Auto (RBC) [Mass/Vol]on 12-14-2021 MCHC (RBC) [Mass/Vol] 30.0 g/dL 32-36 [facility] Work Phone: Mucus LM Ql (Urine sed)on Mucus Ql (Urine sed) 0 SEEN /hpf [facility] Work Phone: [phone] Nitrite Test strip Ql (U)on 12-14-2021 Nitrite Ql (U) Negative Negative [facility] Work Phone: No Panel Informationon 12-14 Estimated Creatinine Clearance Calc 50.47 ml/min [facility] Work Phone: Estimated GFR (MDRD) Amer 65 mL/min >60 [facility] Work Phone: Comment on above: GFR Calc Estimated GFR (MDRD) Non-Af Amer 54 mL/min >60 [facility] Work Phone: Comment on above: Non- GFR Calc Platelets bldon 12-14-2021 Platelets (Bld) [#/Vol] 341 10*3/uL 150-450 [facility] Work Phone: Protein Test strip Ql (U)on 12-14-2021 Protein Ql (U) Negative Negative [facility] Work Phone: [phone] Serum or plasma calcium paddy urement (mass/volume)on 12-14-2021 Calcium [Mass/Vol] 9.3 mg/dL 8.5-10.1 [facility] Work Phone: [phone] Serum or plasma creatinine m easurement (mass/volume)on 12-14-2021 Creatinine [Mass/Vol] 1.12 mg/dL 0.55-1.02 [facility] Work Phone: [phone] Comment on above: The validity of the calculated GFR & GFRAA in patients over 70 years has not been determined. Clinical correlation is essential. Serum or plasma urea nitroge n measurement (mass/volume)on 12-14-2021 Urea nitrogen [Mass/Vol] 23 mg/dL 7-18 [facility] Work Phone: [phone] Squamous epithelial cells de tection in urine sediment by light microscopyon 12-14-2021 Epithelial cells.squamous LM Ql (Urine sed) 5-10 SEEN /hpf 5-10 [facility] Work Phone: Thin prep Papanicolaou smear with manual screeningon 12-14-2021 Thin prep Papanicolaou smear with manual screening 2 5-15 [facility] Work Phone: Urine blood detectionon 11-21 RBC Ql (U) 10 /ul Negative [facility] Work Phone: [phone] RBC Ql (U) 0 SEEN /hpf 0-5 [facility] Work Phone: Urine clarityon 12-14-2021 Clarity (U) Sl. Cloudy Clear [facility] Work Phone: Urine color determinationon 12-14-2021 Color (U) Straw Yellow [facility] Work Phone: Urine glucose detectionon Glucose Ql (U) Normal mg/dl Normal [facility] Work Phone: Urine leukocyte esterase det ection by dipstickon 12-14-2021 Leukocyte esterase Test strip Ql (U) 500 /ul Negative [facility] Work Phone: Urine pHon 12-14-2021 pH (U) 6.0 [pH] 5.0 - 8.0 [facility] Work Phone: Urine sediment bacteria coun t by microscopy (number/high power field)on 12-14-2021 Bacteria LM.HPF (Urine sed) [#/Area] 1 /[HPF] None Seen [facility] Work Phone: Urine sediment renal epithel ial cell count by microscopy (number/high power field)on 12-14-2021 Epithelial cells.renal LM.HPF (Urine sed) [#/Area] 0 /[HPF] 0-5 [facility] Work Phone: Urine specific gravity measu rementon 12-14-2021 Specific gravity (U) [Rel density] 1.010 1.002-1.03 0 [facility] Work Phone: [phone] Urobilinogen Auto test strip Ql (U)on 12-14-2021 Urobilinogen Ql (U) Normal mg/dl Normal [facility] Work Phone: [phone] Albumin Elph [Mass/Vol]on Albumin [Mass/Vol] Not Reportable [facility] Work Phone: [phone] Interpretation of serum or p lasma protein pattern by immunofixation (narrative resulton 12-12-2021 Protein Fractions Immunofixation James [Interp] Not Reportable [facility] Work Phone: [phone] Laboratory - Chemistry and C hemistry - challengeon 12-12-2021 Cobalamin (Vitamin B12) [Mass/Vol] 436 pg/mL 211-911 [facility] Work Phone: [phone] Serum dlmod-6-mcfazfvt measu rement by electrophoresison 12-12-2021 Alpha 1 globulin Elph [Mass/Vol] Not Reportable [facility] Work Phone: [phone] Serum or plasma IgA measurem ent (mass/volume)on 12-12-2021 IgA [Mass/Vol] Not Reportable [facility] Work Phone: [phone] Serum or plasma IgG measurem ent (mass/volume)on 12-12-2021 IgG [Mass/Vol] Not Reportable [facility] Work Phone: [phone] Serum or plasma IgM measurem ent (mass/volume)on 12-12-2021 IgM [Mass/Vol] Not Reportable [facility] Work Phone: [phone] Serum or plasma beta globuli n measurement by electrophoresis (mass/volume)on 12-12-2021 Beta globulin Elph [Mass/Vol] Not Reportable [facility] Work Phone: [phone] Serum or plasma gamma globul in measurement by electrophoresis (mass/volume)on 12-12-2021 Gamma globulin Elph [Mass/Vol] Not Reportable [facility] Work Phone: Thin prep Papanicolaou smear with manual screeningon 12-12-2021 Thin prep Papanicolaou smear with manual screening Not Reportable [facility] Work Phone: Total protein bloodon 2021 Protein [Mass/Vol] See comment [facility] Work Phone: Comment on above: TEST RESULT LIMITSIF E and PE, SerumImmunoglobulin G, Qn, Serum 974 mg/dL [phone] A, Qn, Serum 357 High mg/dL 87-352Immunoglobulin M, Qn, Serum 175 mg/dL 26-217Protein, Total 6.9 g/dL 6.0-8.5Albumin 3.4 g/dL 2.9-4.6Qmsaj-2-Lxhjuqzx 0.3 g/dL 0.0-0.7Lktca-1-Nmlbzweb 1.0 g/dL 0.4-1.0Beta Globulin 1.1 g/dL 0.7-1.3Gamma Globulin 1.0 g/dL 0.4-1.8M-Darwin Not Observed g/dL Not ObservedGlobulin, Total 3.5 g/dL 2.2-3.9A/G Ratio 1.0 0.7-1.7Immunofixation Result, Serum No monoclonality detected.Please note: Protein electrophoresis scan will follow via computer, mail, or hydrogeology professor delivery. __ TESTING PERFORMED AT [facility]. ORIGINAL REPORT ON FILE IN LAB CONTAINS ADDITIONAL TEST SITE INFORMATION. Telephone Encounteron 2021 [employer] Authentication Interface Message Text Existing prescription should have remaining refills. Normal [employer] Absolute lymphocyte counton 04-14-2022 Lymphocytes Auto (Unsp spec) [#/Vol] 1.84 10*3/uL 0.83-4.51 [facility] Work Phone: Basophil percentageon 2021 Basophil percentage 25-50 SEEN /hpf 0-5 [facility] Work Phone: Basophils/100 WBC (Bld) 0.4 % 0-1 [facility] Work Phone: Chloride [Moles/Vol] 108 mmol/L 98-107 [facility] Work Phone: Eosinophils/100 WBC (Bld) 1.4 % 0-5 [facility] Work Phone: Glucose [Mass/Vol] 104 mg/dL 74-106 [facility] Work Phone: Comment on above: Fasting Glucose resu lt from 100 to 125 mg/dL suggests IMPAIRED HOMEOSTASIS per A.D.A. criteria. Neutrophils (Bld) [#/Vol] 5.4 10*3/uL 2.0-7.7 [facility] Work Phone: Neutrophils/100 WBC (Bld) 67.5 % 47-70 [facility] Work Phone: Potassium [Moles/Vol] 3.8 mmol/L 3.5-5.1 [facility] Work Phone: Sodium [Moles/Vol] 140 mmol/L 136-145 [facility] Work Phone: WBC (Bld) [#/Vol] 8.1 10*3/uL 4.4-11.0 [facility] Work Phone: Bilirubin Test strip Ql (U)o n 11-03-2021 Bilirubin Ql (U) Negative Negative [facility] Work Phone: Blood erythrocytes count (nu mber/volume)on 11-03-2021 RBC (Bld) [#/Vol] 3.22 10*6/uL 4.2-5.[address] [facility] Work Phone: Blood hemoglobin measurement (mass/volume)on 11-03-2021 Hemoglobin (Bld) [Mass/Vol] 9.7 g/dL 12.0-15.0 [facility] Work Phone: Blood lymphocytes/100 leukoc yteson 11-03-2021 Lymphocytes/100 WBC (Bld) 22.8 % 19-41 [facility] Work Phone: [phone] Blood monocytes/100 leukocyt eson 11-03-2021 Monocytes/100 WBC (Bld) 7.7 % 0-10 [facility] Work Phone: [phone] Blood platelet mean volumeon 11-03-2021 Platelet mean volume (Bld) [Entitic vol] 10.9 fL 6.2-12.0 [facility] Work Phone: [phone] Culture, urineon 11-03-2021 Bacteria identified Cx Nom (U) Escherichia coli [facility] Work Phone: [phone] Determination of erythrocyte mean corpuscular volume (MCV)on 11-03-2021 MCV (RBC) [Entitic vol] 93.2 fL 81-99 [facility] Work Phone: Hematocrit Auto (Bld) [Volum e fraction]on 11-03-2021 Hematocrit (Bld) [Volume fraction] 30.0 % 37-47 [facility] Work Phone: Ketones Test strip Ql (U)on 11-03-2021 Ketones Ql (U) 5 mg/dl Negative [facility] Work Phone: Laboratory - Chemistry and C hemistry - challengeon 11-03-2021 CK [Catalytic activity/Vol] 59 U/L 26-192 [facility] Work Phone: [phone] CO2 [Moles/Vol] 27.0 mmol/L 21.0-32.0 [facility] Work Phone: [phone] Urea nitrogen/Creatinine [Mass ratio] 17.7 mg/mg 10-20 [facility] Work Phone: [phone] Laboratory - Hematology and Cell countson 11-03-2021 Erythrocyte distribution width (RBC) [Entitic vol] 45.4 fL 35.1-43.9 [facility] Work Phone: [phone] Erythrocyte distribution width (RBC) [Ratio] 13.2 % 11.6-14.6 [facility] Work Phone: [phone] Immature granulocytes/100 WBC (Bld) 0.200 % 0.0-0.9 [facility] Work Phone: [phone] Comment on above: IG% - Immature Granu locytes (promyelocytes, myelocytes and metamyelocytes) > 1% indicates that a LEFT SHIFT is Present. MCH (RBC) [Entitic mass] 30.1 pg 27.0-32.0 [facility] Work Phone: Nucleated RBC/100 WBC (Bld) [Ratio] 0 % 0-5 [facility] Work Phone: [phone] MCHC Auto (RBC) [Mass/Vol]on 11-03-2021 MCHC (RBC) [Mass/Vol] 32.3 g/dL 32-36 [facility] Work Phone: Mucus LM Ql (Urine sed)on Mucus Ql (Urine sed) RARE /hpf [facility] Work Phone: [phone] Nitrite Test strip Ql (U)on 11-03-2021 Nitrite Ql (U) Positive Negative [facility] Work Phone: No Panel Informationon 11-03 Estimated Creatinine Clearance Calc 74.44 ml/min [facility] Work Phone: [phone] Estimated GFR (MDRD) Amer 97 mL/min >60 [facility] Work Phone: [phone] Comment on above: GFR Calc Estimated GFR (MDRD) Non-Af Amer 80 mL/min >60 [facility] Work Phone: [phone] Comment on above: Non- GFR Calc Troponin I High Sensitivity < 3 pg/mL 3.0-54.0 [facility] Work Phone: Comment on above: Please Note: New Daniella t Units and Gender Specific Reference Ranges. For more information see Policy Stat Procedure Brock High Sensitivity Troponin (TNIH) and attachments. Platelets bldon 11-03-2021 Platelets (Bld) [#/Vol] 255 10*3/uL 150-450 [facility] Work Phone: Protein Test strip Ql (U)on 11-03-2021 Protein Ql (U) 15 mg/dl Negative [facility] Work Phone: Serum or plasma calcium paddy urement (mass/volume)on 11-03-2021 Calcium [Mass/Vol] 9.4 mg/dL 8.5-10.1 [facility] Work Phone: [phone] Serum or plasma creatinine m easurement (mass/volume)on 11-03-2021 Creatinine [Mass/Vol] 0.79 mg/dL 0.55-1.02 [facility] Work Phone: Comment on above: The validity of the calculated GFR & GFRAA in patients over 70 years has not been determined. Clinical correlation is essential. Serum or plasma urea nitroge n measurement (mass/volume)on 11-03-2021 Urea nitrogen [Mass/Vol] 14 mg/dL 7-18 [facility] Work Phone: Squamous epithelial cells de tection in urine sediment by light microscopyon 11-03-2021 Epithelial cells.squamous LM Ql (Urine sed) 0 SEEN /hpf 5-10 [facility] Work Phone: Thin prep Papanicolaou smear with manual screeningon 11-03-2021 Thin prep Papanicolaou smear with manual screening 5 5-15 [facility] Work Phone: Urine blood detectionon 10-21 RBC Ql (U) 25 /ul Negative [facility] Work Phone: [phone] RBC Ql (U) 0 SEEN /hpf 0-5 [facility] Work Phone: [phone] Urine clarityon 11-03-2021 Clarity (U) Cloudy Clear [facility] Work Phone: Urine color determinationon 11-03-2021 Color (U) Yellow Yellow [facility] Work Phone: [phone] Urine glucose detectionon Glucose Ql (U) Normal mg/dl Normal [facility] Work Phone: Urine leukocyte esterase det ection by dipstickon 11-03-2021 Leukocyte esterase Test strip Ql (U) 100 /ul Negative [facility] Work Phone: Urine pHon 11-03-2021 pH (U) 5.0 [pH] 5.0 - 8.0 [facility] Work Phone: Urine sediment bacteria coun t by microscopy (number/high power field)on 11-03-2021 Bacteria LM.HPF (Urine sed) [#/Area] 4 /[HPF] None Seen [facility] Work Phone: Urine specific gravity measu rementon 11-03-2021 Specific gravity (U) [Rel density] 1.020 1.002-1.03 0 [facility] Work Phone: Urobilinogen Auto test strip Ql (U)on 11-03-2021 Urobilinogen Ql (U) Normal mg/dl Normal [facility] Work Phone: Progress Noteson 11-02-2021 [employer] Authentication Interface Message Text This visit has been rescheduled as a phone visit to comply with patient safety concerns in accordance with CDC recommendations. Telephone Encounter This visit was performed via interactive telehealth. This visit was initiated by the patient / provider and the patient and provider interacted in real time. Location of the patient: Home of patient Location of the provider: [facility] Main Reviewed informed consent with patient: yes - see MR Patient/parent indicated understanding of informed consent: yes see MR Phone numbers Verified number (above) and current location (in MR) as well as privacy and minimization of distractions. Agreed provider would call pt back if call was disconnected. Patient provided two identifiers Total Time Spent with Patient: 18 minutes, of which greater than 50% was spent on counseling or coordinating care. PHARMACOLOGIC MANAGEMENT: 11/02/2021 START TIME: 10:32 AM END TIME: 10:50 AM 18 minutes for Pharmacological Management Last seen: 05/2021 Service Authorized by Treatment Plan/ISP: Yes MEDICATIONS: Current Outpatient Medications on File Prior to Visit Medication Sig Dispense Refill * aluminum AND magnesium hydroxide-simethicone (MAALOX REGULAR STRENGTH) 200-200-20 MG/5ML suspension Take 15 mL by mouth every 6 hours as needed for Other. 1 Bottle 3 * nicotine (NICODERM CQ) 14 MG/24HR patch Place 1 Patch on the skin every 24 hours. 30 Patch 3 * atorvastatin (LIPITOR) 20 MG tablet Take 1 Tablet by mouth at bedtime. 30 Tablet 2 * losartan (COZAAR) 100 MG tablet Take 1 Tablet by mouth daily. 30 Tablet 3 * albuterol (PROAIR HFA) inhaler 90 mcg/inh Inhale 2 Puffs. * Cholecalciferol (VITAMIN D) 2000 UNITS CAPS Take 2,000 Units by mouth daily. 30 Cap 11 No current facility-administered medications on file prior to visit. SIDE EFFECTS: None reported. SIGNIFICANT LIFE CHANGES/UPDATE: None reported. Treatment Plan Goal Addressed Today: No flowsheet data found Chief Complaint: medication follow up SUBJECTIVE: Pt is home now, living alone. She fell and cracked 3 ribs and was staying at a rehab facility in August. She's attempting to get into an assisted living facility. Still having a lot of involuntary twitching in feet and hands. She is permenantly in a wheelchair. She is feeling pretty down but managing. Struggling with trying to find son, he's been missing for a couple months. They think he might have , because he was in a lot of trouble with drugs. She filed a missing person's report with police- [place] Arceo. Outside of this, it's hard to tell if the medications are working. Recently started on a medication for her Parkinson's disease-unsure which medication it is. Her neurologist is in [place]. Takes Effexor, Remeron and Klonopin. Says she only takes Klonopin once daily for her anxiety. Does not want it changed, but open to reducing the number of tablet she receives. OBJECTIVE/MENTAL STATUS EXAM: 1. APPEARANCE: unable to assess due to phone visit 2. BEHAVIOR: cooperative, calm 3. ORIENTATION: Oriented to time, person AND place 4. SPEECH: spontaneous, normal rate and flow 5. THOUGHT PROCESS: organized 6. THOUGHT CONTENT: No evidence of paranoia, No evidence of delusions. Denies SI/HI 7. PERCEPTIONS: No evidence of perceptual disturbance. Denies AH/VH 8. MOOD: euthymic 9. AFFECT: limited due to due to phone visit 10. ATTENTION/CONCENTRATION: Sustained 11. RECENT AND REMOTE MEMORY: Within normal limits 12. JUDGMENT AND INSIGHT: Fair 13. MUSCULOSKELETAL: unable to assess due to phone visit 14. RIGIDITY: unable to assess due to phone visit Cognitive function is sufficient for dialogue with therapist: Yes Suicide Screener: C-SSRS [place]-Suicide Severity Rating Scale Able to complete [place]-Suicide Severity Rating Scale with Patient?: Yes 1) Wish to be : No 2) Current suicidal thoughts: No 6) C-SSRS Suicidal Behavior: No Risk of Suicide: Negative Screen Did patient score moderate or high risk on the C-SSRS?: No SAFE-T PAIN ASSESSMENT: Patient did not report pain today. LAB STUDIES AND TESTS: None today IMPRESSION: Symptoms in partial remission Mood is depressed. Still anxious. Eating and sleeping well. Had recent falls- so will reduce the number of tablet of Klonopin she receives from 60 tabs to 45 tabs. Pt agreeable. DIAGNOSTIC IMPRESSION: Diagnosis: Major Depressive Disorder, recurrent, moderate General Anxiety Disorder Panic Disorder MENTAL HEALTH INTERVENTIONS: -Continue Remeron 7.5 mg at bedtime to stimulate sleep and appetite. -Reduce Klonopin to 0.5 mg po BID prn for anxiety (45 tablets for 30 days)- reduced from 60 tablets due to recent falls. -Increase Effexor XR to 150 mg daily for mood and anxiety. Risk and benefit of medications discussed Encouraged to make phone calls with concerns Availability of ED a (more content not included)... Normal [facility] Basophil percentageon 2021 Ammonia (P) [Moles/Vol] 18.0 umol/L 11-32 [facility] Work Phone: Bilirubin [Mass/Vol] 0.20 mg/dL 0.20-1.00 [facility] Work Phone: Comment on above: For patients on eltr ombopag therapy, use of Dimension Brock TBIL is not recommended. Chloride [Moles/Vol] 107 mmol/L 98-107 [facility] Work Phone: Glucose [Mass/Vol] 113 mg/dL 74-106 [facility] Work Phone: Comment on above: Fasting Glucose resu lt from 100 to 125 mg/dL suggests IMPAIRED HOMEOSTASIS per A.D.A. criteria. Potassium [Moles/Vol] 4.1 mmol/L 3.5-5.1 [facility] Work Phone: Protein [Mass/Vol] 7.8 g/dL 6.4-8.2 [facility] Work Phone: [phone] Sodium [Moles/Vol] 136 mmol/L 136-145 [facility] Work Phone: [phone] WBC (Bld) [#/Vol] 5.5 10*3/uL 4.4-11.0 [facility] Work Phone: Blood erythrocytes count (nu mber/volume)on 10-26-2021 RBC (Bld) [#/Vol] 3.21 10*6/uL 4.2-5.[address] [facility] Work Phone: Blood hemoglobin measurement (mass/volume)on 10-26-2021 Hemoglobin (Bld) [Mass/Vol] 9.5 g/dL 12.0-15.0 [facility] Work Phone: Blood platelet mean volumeon 10-26-2021 Platelet mean volume (Bld) [Entitic vol] 10.8 fL 6.2-12.0 [facility] Work Phone: CT UROGRAM WO/W IVCONon - [facility] Determination of erythrocyte mean corpuscular volume (MCV)on 10-26-2021 MCV (RBC) [Entitic vol] 97.2 fL 81-99 [facility] Work Phone: Hematocrit Auto (Bld) [Volum e fraction]on 10-26-2021 Hematocrit (Bld) [Volume fraction] 31.2 % 37-47 [facility] Work Phone: Iron measurement (mass/mass) on 10-26-2021 Iron (Unsp spec) [Mass/Mass] 61 ug/dL 50-170 [facility] Work Phone: [phone] Laboratory - Chemistry and C hemistry - challengeon 10-26-2021 ALP [Catalytic activity/Vol] 75 U/L 45-117 [facility] Work Phone: [phone] ALT [Catalytic activity/Vol] 28 U/L 13-56 [facility] Work Phone: [phone] CO2 [Moles/Vol] 27.0 mmol/L 21.0-32.0 [facility] Work Phone: [phone] Globulin (S) [Mass/Vol] 3.9 g/dL 2.2-4.2 [facility] Work Phone: [phone] Urea nitrogen/Creatinine [Mass ratio] 26.4 mg/mg 10-20 [facility] Work Phone: [phone] Laboratory - Hematology and Cell countson 10-26-2021 Erythrocyte distribution width (RBC) [Entitic vol] 48.5 fL 35.1-43.9 [facility] Work Phone: [phone] Erythrocyte distribution width (RBC) [Ratio] 13.5 % 11.6-14.6 [facility] Work Phone: [phone] MCH (RBC) [Entitic mass] 29.6 pg 27.0-32.0 [facility] Work Phone: [phone] MCHC Auto (RBC) [Mass/Vol]on 10-26-2021 MCHC (RBC) [Mass/Vol] 30.4 g/dL 32-36 [facility] Work Phone: [phone] Panel Informationon 10-26 Estimated GFR (MDRD) Amer 91 mL/min >60 [facility] Work Phone: [phone] Comment on above: GFR Calc Estimated GFR (MDRD) Non-Af Amer 75 mL/min >60 [facility] Work Phone: [phone] Comment on above: Non- GFR Calc Free Lambda Light Chains, Quant 16.5 mg/L 5.7-26.3 [facility] Work Phone: [phone] Levetiracetam (Keppra) Level 14.9 ug/mL 10.0-40.0 [facility] Work Phone: [phone] Comment on above: Performed at: - L [address] [id number] Director: Eliseo Yañez PhD, Phone: [phone] at: BN - [facility] [address] [id number] Director: Azalia Rosen MD, Phone: [phone] Thyroid Stimulating Hormone (TSH) 1.22 uIU/mL 0.358-3.74 [facility] Work Phone: [phone] Whole Blood Vitamin B1 Level 131.9 nmol/L 66.5-200.0 [facility] Work Phone: [phone] Platelets bldon 10-26-2021 Platelets (Bld) [#/Vol] 272 10*3/uL 150-450 [facility] Work Phone: [phone] Serum immunoglobulin kappa l ight chains/immunoglobulin lambda light chains mass ratioon 10-26-2021 Immunoglobulin light chains.kappa/Immunogl obulin light chains.lambda (S) [Mass ratio] 1.55 0.26-1.65 [facility] Work Phone: [phone] Serum or plasma albumin paddy urement (mass/volume)on 10-26-2021 Albumin [Mass/Vol] 3.9 g/dL 3.2-5.0 [facility] Work Phone: [phone] Serum or plasma albumin/glob ulin mass ratioon 10-26-2021 Albumin/Globulin [Mass ratio] 1.0 {ratio} 0.9-2.4 [facility] Work Phone: [phone] Serum or plasma calcium paddy urement (mass/volume)on 10-26-2021 Calcium [Mass/Vol] 9.3 mg/dL 8.5-10.1 [facility] Work Phone: [phone] Serum or plasma creatinine m easurement (mass/volume)on 10-26-2021 Creatinine [Mass/Vol] 0.83 mg/dL 0.55-1.02 [facility] Work Phone: Comment on above: The validity of the calculated GFR & GFRAA in patients over 70 years has not been determined. Clinical correlation is essential. Serum or plasma ferritin phil surement (mass/volume)on 10-26-2021 Ferritin [Mass/Vol] 47 ng/mL 8-[address] [facility] Work Phone: Serum or plasma folate measu rement (mass/volume)on 10-26-2021 Folate [Mass/Vol] 8.90 ng/mL 3.1-55.4 [facility] Work Phone: Serum or plasma immunoglobul in kappa light chains measurement (mass/volume)on 10-26-2021 Immunoglobulin light chains.kappa [Mass/Vol] 25.5 mg/L 3.3-19.4 [facility] Work Phone: Serum or plasma urea nitroge n measurement (mass/volume)on 10-26-2021 Urea nitrogen [Mass/Vol] 22 mg/dL 7-18 [facility] Work Phone: Thin prep Papanicolaou smear with manual screeningon 10-26-2021 Thin prep Papanicolaou smear with manual screening 18 U/L 15-37 [facility] Work Phone: Thin prep Papanicolaou smear with manual screening 2 5-15 [facility] Work Phone: [facility] FELISHA [facility]ERRIN ([id number]) 1965 F Date Time Provider Department 10/18/21 RONAL PEREYRA JR During your visit today, we recorded the following information about you: Yari Crockett 10/18/2021 2:16 PM Signed Left pt scheduled with Dr. Pereyra in [facility] 11/02/21 @ 2:[address] prior 10/19/21. [place] Allergies As of Date: 10/18/2021 Noted Allergy Reaction ASPIRIN 08/24/2013 7 - Swelling DEMEROL (MEPERIDINE (PF)) 06/26/2009 FISH 11/19/2012 7 - Swelling ONION 11/19/2012 10 - Anaphylaxis PEACH 11/19/2012 10 - Anaphylaxis PEANUT 11/19/2012 10 - Anaphylaxis PENICILLINS 06/26/2009 SHELLFISH 11/19/2012 10 - Anaphylaxis TORADOL (KETOROLAC TROMETHAMINE) 04/03/2012 4 - Hives ULTRAM (TRAMADOL) 06/26/2009 4 - Hives Comments: Swelling of tongue Date Reviewed: 10/18/2021 Reviewed by: RT Cortez(R) - Fully Assessed Reason for Visit: Appointment [[id number]] Prescriptions as of 10/18/2021 - iv contrast (will be provided with radiology test) CT Urogram WO/W Inject, intravenously, once for 1 dose.No IV access, insert saline lock prior to the beginning of sedation, infusion, injection of imaging exam. Discontinue saline lock post exam. If Pt. has a central line or IVAD, may access for administration according to line specific nursing protocol. Once exam is complete flush line and de-access according to line specific nursing protocol in the CT contrast administration guidelines link. - 0.9 % sodium chloride (NACL 0.9%) infusion Inject 150 mL/hr intravenously one time only for 1 dose. Administer at rate defined per CT contrast administration specifications. To be provided with radiology test. - rivaroxaban (XARELTO) 20 mg tablet Take 1 tablet by mouth daily with dinner. - losartan (COZAAR) 100 mg tablet Take 1 tablet by mouth once daily. - omeprazole (PRILOSEC) 40 mg capsule Take 1 capsule by mouth once daily. - atorvastatin (LIPITOR) 80 mg tablet Take 1 tablet by mouth once daily. - furosemide (LASIX) 20 mg tablet Take 1 tablet by mouth once daily. - spironolactone (ALDACTONE) 50 mg tablet Take 1 tablet by mouth once daily. - metoprolol succinate ER (TOPROL XL) 100 mg Take 1 tablet by mouth once daily. - ipratropium-albuterol (DUONEB) 0.5 mg-3 mg(2.5 mg base)/3 mL nebu INHALE 1 VIAL VIA NEBULIZER EVERY 4 HOURS NEEDED - albuterol HFA (VENTOLIN HFA) 90 mcg/actuation inhaler INHALE 2 PUFFS BY MOUTH THREE TIMES A DAY NEEDED FOR SHORTNESS OF BREATH/WHEEZING/COUGH - mometasone-formoterol (DULERA) 100-5 mcg/actuation inhaler Inhale 2 Puffs as instructed twice daily. - divalproex ER (DEPAKOTE ER) 250 mg 24 hr tablet Take 1 tablet by mouth twice daily. Per NEUROLOGY. - levETIRAcetam (KEPPRA) 500 mg tablet Take 1 tablet by mouth twice daily. Per NEUROLOGY. - clonazePAM (KLONOPIN) 0.5 mg tablet Take 1 tablet by mouth twice daily. Per [facility]. - Mirtazapine (REMERON) 7.5 mg tablet Take 1 tablet by mouth daily at bedtime. Per [facility]. - acetaminophen (TYLENOL EXTRA STRENGTH) 500 mg tablet Take 1,000 mg by mouth every 8 hours as needed. - venlafaxine ER (EFFEXOR XR) 75 mg 24 hr capsule Take 75 mg by mouth once daily. Plus 37.5 mg capsule. [facility]. - venlafaxine ER (EFFEXOR XR) 37.5 mg 24 hr capsule Take 37.5 mg by mouth once daily. Plus 75 mg capsule. [facility]. - mometasone (ELOCON) 0.1 % cream APPLY 1 APPLICATION TO AFFECTED AREA ONCE DAILY NEEDED FOR FACIAL RASH. AVOID EYES NOSE MOUTH - calcium carbonate (CALCIUM 600 ORAL) Take 1 tablet by mouth once daily. - COMPOUNDED PRESCRIPTION PORTABLE OXYGEN VIA NASAL CANNULA. 2 LPM FOR USE WITH EXERTION, ACTIVITY. Dx:R09.02; J44.9; J98.4 Problem List As Of Date 10/18/2021 Noted Resolved Abdominal pain [R10.9] 04/03/2012 07/07/2015 UTI (urinary tract infection) [N39.0] 04/03/2012 12/21/2015 Stroke (HCC) [I63.9] 04/03/2012 12/21/2015 Obesity [E66.9] 04/03/2012 07/07/2015 HTN (hypertension) [I10] 04/03/2012 09/03/2018 Eating disorder, unspecified [F50.9] 10/10/2012 Morbid obesity ([facility]) [E66.01] 09/03/2018 Hypothyroidism [E03.9] 09/03/2018 Unilateral emphysema ([facility]) [J43.0] 12/21/2015 Hypertension [I10] 07/07/2015 GERD (gastroesophageal reflux disease) [K21.9] Anxiety [F41.9] Arthritis [M19.90] Asthma [J45.909] 09/26/2017 Depression [F32.A] Epilepsy ([facility]) [G40.909] Ulcer of the stomach and intestine [K28.9] 12/21/2015 Smoker [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 Normal [facility] Absolute lymphocyte counton 10-10-2021 Lymphocytes Auto (Unsp spec) [#/Vol] 1.75 10*3/uL 0.83-4.51 [facility] Work Phone: Basophil percentageon 2021 Basophils/100 WBC (Bld) 0.6 % 0-1 [facility] Work Phone: Eosinophils/100 WBC (Bld) 1.5 % 0-5 [facility] Work Phone: Neutrophils (Bld) [#/Vol] 4.3 10*3/uL 2.0-7.7 [facility] Work Phone: Neutrophils/100 WBC (Bld) 64.2 % 47-70 [facility] Work Phone: WBC (Bld) [#/Vol] 6.6 10*3/uL 4.4-11.0 [facility] Work Phone: Blood erythrocytes count (nu mber/volume)on 10-10-2021 RBC (Bld) [#/Vol] 2.97 10*6/uL 4.2-5.[address] [facility] Work Phone: Blood hemoglobin measurement (mass/volume)on 10-10-2021 Hemoglobin (Bld) [Mass/Vol] 9.1 g/dL 12.0-15.0 [facility] Work Phone: Blood lymphocytes/100 leukoc yteson 10-10-2021 Lymphocytes/100 WBC (Bld) 26.4 % 19-41 [facility] Work Phone: Blood monocytes/100 leukocyt eson 10-10-2021 Monocytes/100 WBC (Bld) 6.8 % 0-10 [facility] Work Phone: Blood platelet mean volumeon 10-10-2021 Platelet mean volume (Bld) [Entitic vol] 11.5 fL 6.2-12.0 [facility] Work Phone: Determination of erythrocyte mean corpuscular volume (MCV)on 10-10-2021 MCV (RBC) [Entitic vol] 95.3 fL 81-99 [facility] Work Phone: Hematocrit Auto (Bld) [Volum e fraction]on 10-10-2021 Hematocrit (Bld) [Volume fraction] 28.3 % 37-47 [facility] Work Phone: Hemoglobin in reticulocytes (mass per reticulocyte)on 10-10-2021 Hemoglobin (Reticulocytes) [Entitic mass] 32.1 pg 30-35 [facility] Work Phone: INR in Blood by Coagulation assayon 10-10-2021 INR Coag (Bld) [Relative time] 1.1 {INR} [facility] Work Phone: [phone] Iron measurement (mass/mass) on 10-10-2021 Iron (Unsp spec) [Mass/Mass] 33 ug/dL 50-170 [facility] Work Phone: [phone] Laboratory - Chemistry and C hemistry - challengeon 10-10-2021 Transferrin [Mass/Vol] 255 mg/dL 192-364 [facility] Work Phone: [phone] Comment on above: Performed at: [address] [id number] Director: Eliseo Yañez PhD, Phone: [phone] Laboratory - Coagulationon 0 10-10-2021 PT Coag (PPP) [Time] 13.3 s 11.7-14.9 [facility] Work Phone: [phone] Laboratory - Hematology and Cell countson 10-10-2021 Erythrocyte distribution width (RBC) [Entitic vol] 48.3 fL 35.1-43.9 [facility] Work Phone: [phone] Erythrocyte distribution width (RBC) [Ratio] 14.0 % 11.6-14.6 [facility] Work Phone: [phone] Immature granulocytes/100 WBC (Bld) 0.500 % 0.0-0.9 [facility] Work Phone: [phone] Comment on above: IG% - Immature Granu locytes (promyelocytes, myelocytes and metamyelocytes) > 1% indicates that a LEFT SHIFT is Present. MCH (RBC) [Entitic mass] 30.6 pg 27.0-32.0 [facility] Work Phone: [phone] Nucleated RBC/100 WBC (Bld) [Ratio] 0 % 0-5 [facility] Work Phone: [phone] MCHC Auto (RBC) [Mass/Vol]on 10-10-2021 MCHC (RBC) [Mass/Vol] 32.2 g/dL 32-36 [facility] Work Phone: [phone] Panel Informationon 10-10 Immature Reticulocyte Fraction 26.40 % 3.00-15.90 [facility] Work Phone: [phone] Reticulocyte Count 2.00 % 0.5-1.5 [facility] Work Phone: Total Iron Binding Capacity 343 ug/dL 250-450 [facility] Work Phone: Platelets bldon 10-10-2021 Platelets (Bld) [#/Vol] 208 10*3/uL 150-450 [facility] Work Phone: Serum or plasma ferritin phil surement (mass/volume)on 10-10-2021 Ferritin [Mass/Vol] 29 ng/mL 8-[address] [facility] Work Phone: Serum or plasma iron saturat ion measurement (mass fraction)on 10-10-2021 Iron saturation [Mass fraction] 9.6 % 15.0-55.0 [facility] Work Phone: Absolute lymphocyte counton 09-22-2021 Lymphocytes Auto (Unsp spec) [#/Vol] 2.43 10*3/uL 0.83-4.51 [facility] Work Phone: Basophil percentageon 2021 Basophil percentage 0 SEEN /hpf 0-5 [facility] Work Phone: Basophils/100 WBC (Bld) 0.8 % 0-1 [facility] Work Phone: Chloride [Moles/Vol] 107 mmol/L 98-107 [facility] Work Phone: Eosinophils/100 WBC (Bld) 5.3 % 0-5 [facility] Work Phone: Glucose [Mass/Vol] 109 mg/dL 74-106 [facility] Work Phone: Comment on above: Fasting Glucose resu lt from 100 to 125 mg/dL suggests IMPAIRED HOMEOSTASIS per A.D.A. criteria. Neutrophils (Bld) [#/Vol] 3.8 10*3/uL 2.0-7.7 [facility] Work Phone: Neutrophils/100 WBC (Bld) 52.2 % 47-70 [facility] Work Phone: Potassium [Moles/Vol] 4.1 mmol/L 3.5-5.1 [facility] Work Phone: Sodium [Moles/Vol] 138 mmol/L 136-145 [facility] Work Phone: WBC (Bld) [#/Vol] 7.2 10*3/uL 4.4-11.0 [facility] Work Phone: Bilirubin Test strip Ql (U)o n 09-22-2021 Bilirubin Ql (U) Negative Negative [facility] Work Phone: Blood erythrocytes count (nu mber/volume)on 09-22-2021 RBC (Bld) [#/Vol] 3.25 10*6/uL 4.2-5.[address] [facility] Work Phone: Blood hemoglobin measurement (mass/volume)on 09-22-2021 Hemoglobin (Bld) [Mass/Vol] 10.0 g/dL 12.0-15.0 [facility] Work Phone: Blood lymphocytes/100 leukoc yteson 09-22-2021 Lymphocytes/100 WBC (Bld) 33.8 % 19-41 [facility] Work Phone: Blood monocytes/100 leukocyt eson 09-22-2021 Monocytes/100 WBC (Bld) 7.6 % 0-10 [facility] Work Phone: Blood platelet mean volumeon 09-22-2021 Platelet mean volume (Bld) [Entitic vol] 11.2 fL 6.2-12.0 [facility] Work Phone: Determination of erythrocyte mean corpuscular volume (MCV)on 09-22-2021 MCV (RBC) [Entitic vol] 94.2 fL 81-99 [facility] Work Phone: Hematocrit Auto (Bld) [Volum e fraction]on 09-22-2021 Hematocrit (Bld) [Volume fraction] 30.6 % 37-47 [facility] Work Phone: Ketones Test strip Ql (U)on 09-22-2021 Ketones Ql (U) Negative Negative [facility] Work Phone: Laboratory - Chemistry and C hemistry - challengeon 09-22-2021 CO2 [Moles/Vol] 28.0 mmol/L 21.0-32.0 [facility] Work Phone: [phone] Urea nitrogen/Creatinine [Mass ratio] 17.2 mg/mg 10-20 [facility] Work Phone: [phone] Laboratory - Hematology and Cell countson 09-22-2021 Erythrocyte distribution width (RBC) [Entitic vol] 48.5 fL 35.1-43.9 [facility] Work Phone: [phone] Erythrocyte distribution width (RBC) [Ratio] 14.2 % 11.6-14.6 [facility] Work Phone: [phone] Immature granulocytes/100 WBC (Bld) 0.300 % 0.0-0.9 [facility] Work Phone: [phone] Comment on above: IG% - Immature Granu locytes (promyelocytes, myelocytes and metamyelocytes) > 1% indicates that a LEFT SHIFT is Present. MCH (RBC) [Entitic mass] 30.8 pg 27.0-32.0 [facility] Work Phone: [phone] Nucleated RBC/100 WBC (Bld) [Ratio] 0 % 0-5 [facility] Work Phone: [phone] MCHC Auto (RBC) [Mass/Vol]on 09-22-2021 MCHC (RBC) [Mass/Vol] 32.7 g/dL 32-36 [facility] Work Phone: [phone] Mucus LM Ql (Urine sed)on Mucus Ql (Urine sed) 0 SEEN /hpf [facility] Work Phone: [phone] Nitrite Test strip Ql (U)on 09-22-2021 Nitrite Ql (U) Negative Negative [facility] Work Phone: [phone] Panel Informationon 09-22 Estimated Creatinine Clearance Calc 51.30 ml/min [facility] Work Phone: [phone] Estimated GFR (MDRD) Amer 62 mL/min >60 [facility] Work Phone: Comment on above: GFR Calc Estimated GFR (MDRD) Non-Af Amer 51 mL/min >60 [facility] Work Phone: Comment on above: Non- GFR Calc Platelets bldon 09-22-2021 Platelets (Bld) [#/Vol] 317 10*3/uL 150-450 [facility] Work Phone: [phone] Protein Test strip Ql (U)on 09-22-2021 Protein Ql (U) Negative Negative [facility] Work Phone: [phone] Serum or plasma calcium paddy urement (mass/volume)on 09-22-2021 Calcium [Mass/Vol] 9.3 mg/dL 8.5-10.1 [facility] Work Phone: [phone] Serum or plasma creatinine m easurement (mass/volume)on 09-22-2021 Creatinine [Mass/Vol] 1.16 mg/dL 0.55-1.02 [facility] Work Phone: Comment on above: The validity of the calculated GFR & GFRAA in patients over 70 years has not been determined. Clinical correlation is essential. Serum or plasma urea nitroge n measurement (mass/volume)on 09-22-2021 Urea nitrogen [Mass/Vol] 20 mg/dL 7-18 [facility] Work Phone: [phone] Squamous epithelial cells de tection in urine sediment by light microscopyon 09-22-2021 Epithelial cells.squamous LM Ql (Urine sed) 0 SEEN /hpf 5-10 [facility] Work Phone: [phone] Thin prep Papanicolaou smear with manual screeningon 09-22-2021 Thin prep Papanicolaou smear with manual screening 3 5-15 [facility] Work Phone: [phone] Urine blood detectionon RBC Ql (U) Negative Negative [facility] Work Phone: [phone] RBC Ql (U) 0 SEEN /hpf 0-5 [facility] Work Phone: [phone] Urine clarityon 09-22-2021 Clarity (U) Clear Clear [facility] Work Phone: Urine color determinationon 09-22-2021 Color (U) Yellow Yellow [facility] Work Phone: Urine glucose detectionon Glucose Ql (U) Normal mg/dl Normal [facility] Work Phone: Urine leukocyte esterase det ection by dipstickon 09-22-2021 Leukocyte esterase Test strip Ql (U) 25 /ul Negative [facility] Work Phone: Urine pHon 09-22-2021 pH (U) 7.0 [pH] 5.0 - 8.0 [facility] Work Phone: Urine sediment bacteria coun t by microscopy (number/high power field)on 09-22-2021 Bacteria LM.HPF (Urine sed) [#/Area] 0 /[HPF] None Seen [facility] Work Phone: Urine specific gravity measu rementon 09-22-2021 Specific gravity (U) [Rel density] 1.010 1.002-1.03 0 [facility] Work Phone: Urobilinogen Auto test strip Ql (U)on 09-22-2021 Urobilinogen Ql (U) Normal mg/dl Normal [facility] Work Phone: Absolute lymphocyte counton 09-15-2021 Lymphocytes Auto (Unsp spec) [#/Vol] 1.75 10*3/uL 0.83-4.51 [facility] Work Phone: Atypical perinuclear antineu trophil cytoplasmic antibodies measurementon 09-15-2021 Neutrophil cytoplasmic Ab.perinuclear.atypic al IF (S) [Titer] <1:20 titer Neg:<1:20 [facility] Work Phone: Comment on above: The atypical pANCA p attern has been observed in asignificant percentage of patients with ulcerative colitis,primary sclerosing cholangitis and autoimmune hepatitis. Basophil percentageon 2021 Basophil percentage < 0.2 AI 0.0-0.[address] [facility] Work Phone: Ammonia (P) [Moles/Vol] 35.0 umol/L 11-32 [facility] Work Phone: Basophils/100 WBC (Bld) 0.9 % 0-1 [facility] Work Phone: Bilirubin [Mass/Vol] 0.60 mg/dL 0.20-1.00 [facility] Work Phone: Comment on above: For patients on eltr ombopag therapy, use of Dimension Brock TBIL is not recommended. Chloride [Moles/Vol] 108 mmol/L 98-107 [facility] Work Phone: Eosinophils/100 WBC (Bld) 3.9 % 0-5 [facility] Work Phone: Glucose [Mass/Vol] 94 mg/dL 74-106 [facility] Work Phone: Neutrophils (Bld) [#/Vol] 4.1 10*3/uL 2.0-7.7 [facility] Work Phone: Neutrophils/100 WBC (Bld) 61.8 % 47-70 [facility] Work Phone: Potassium [Moles/Vol] 4.5 mmol/L 3.5-5.1 [facility] Work Phone: Protein [Mass/Vol] 7.6 g/dL 6.4-8.2 [facility] Work Phone: Sodium [Moles/Vol] 139 mmol/L 136-145 [facility] Work Phone: WBC (Bld) [#/Vol] 6.7 10*3/uL 4.4-11.0 [facility] Work Phone: Blood erythrocytes count (nu mber/volume)on 09-15-2021 RBC (Bld) [#/Vol] 3.06 10*6/uL 4.2-5.[address] [facility] Work Phone: Blood hemoglobin measurement (mass/volume)on 09-15-2021 Hemoglobin (Bld) [Mass/Vol] 9.3 g/dL 12.0-15.0 [facility] Work Phone: Blood lymphocytes/100 leukoc yteson 09-15-2021 Lymphocytes/100 WBC (Bld) 26.3 % 19-41 [facility] Work Phone: Blood monocytes/100 leukocyt eson 09-15-2021 Monocytes/100 WBC (Bld) 6.8 % 0-10 [facility] Work Phone: Blood platelet mean volumeon 09-15-2021 Platelet mean volume (Bld) [Entitic vol] 11.5 fL 6.2-12.0 [facility] Work Phone: Determination of erythrocyte mean corpuscular volume (MCV)on 09-15-2021 MCV (RBC) [Entitic vol] 96.1 fL 81-99 [facility] Work Phone: Direct bilirubinon 2 Bilirubin.direct [Mass/Vol] 0.10 mg/dL 0.00-0.30 [facility] Work Phone: Erythrocyte sedimentation ra emanuel 09-15-2021 ESR (Bld) [Velocity] 65 mm/h 0-30 [facility] Work Phone: Hematocrit Auto (Bld) [Volum e fraction]on 09-15-2021 Hematocrit (Bld) [Volume fraction] 29.4 % 37-47 [facility] Work Phone: INR in Blood by Coagulation assayon 09-15-2021 INR Coag (Bld) [Relative time] 1.6 {INR} [facility] Work Phone: Laboratory - Chemistry and C hemistry - challengeon 09-15-2021 ALP [Catalytic activity/Vol] 85 U/L 45-117 [facility] Work Phone: ALT [Catalytic activity/Vol] 24 U/L 13-56 [facility] Work Phone: CO2 [Moles/Vol] 28.0 mmol/L 21.0-32.0 [facility] Work Phone: [phone] Globulin (S) [Mass/Vol] 3.9 g/dL 2.2-4.2 [facility] Work Phone: [phone] Urea nitrogen/Creatinine [Mass ratio] 28.2 mg/mg 10-20 [facility] Work Phone: [phone] Laboratory - Coagulationon 0 09-15-2021 aPTT Coag (Bld) [Time] 34.1 s 24.1-36.2 [facility] Work Phone: [phone] PT Coag (PPP) [Time] 18.5 s 11.7-14.9 [facility] Work Phone: [phone] Laboratory - Hematology and Cell countson 09-15-2021 Erythrocyte distribution width (RBC) [Entitic vol] 50.2 fL 35.1-43.9 [facility] Work Phone: [phone] Erythrocyte distribution width (RBC) [Ratio] 14.4 % 11.6-14.6 [facility] Work Phone: [phone] Immature granulocytes/100 WBC (Bld) 0.300 % 0.0-0.9 [facility] Work Phone: [phone] Comment on above: IG% - Immature Granu locytes (promyelocytes, myelocytes and metamyelocytes) > 1% indicates that a LEFT SHIFT is Present. MCH (RBC) [Entitic mass] 30.4 pg 27.0-32.0 [facility] Work Phone: [phone] Nucleated RBC/100 WBC (Bld) [Ratio] 0 % 0-5 [facility] Work Phone: [phone] MCHC Auto (RBC) [Mass/Vol]on 09-15-2021 MCHC (RBC) [Mass/Vol] 31.6 g/dL 32-36 [facility] Work Phone: [phone] Panel Informationon 09-15 Centromere B Antibody <0.2 AI 0.0-0.9 [facility] Work Phone: [phone] NURSE AIDE EVALUATOR Antibody <0.2 AI 0.0-0.9 [facility] Work Phone: Ceruloplasmin 28.9 mg/dL 19.0-39.0 [facility] Work Phone: [phone] Estimated GFR (MDRD) Amer 104 mL/min >60 [facility] Work Phone: [phone] Comment on above: GFR Calc Estimated GFR (MDRD) Non-Af Amer 86 mL/min >60 [facility] Work Phone: [phone] Comment on above: Non- GFR Calc Hepatitis A IgM Antibody Negative Negative [facility] Work Phone: [phone] Hepatitis B Core IgM Antibody Negative Negative [facility] Work Phone: [phone] Hepatitis C Antibody (EIA) <0.1 s/co ratio 0.0-0.9 [facility] Work Phone: [phone] Comment on above: Negative: < 0.8 Inde terminate: 0.8 - 0.9 Positive: > 0.9 The CDC recommends that a positive HCV antibody result be followed up with a HCV Nucleic Acid Amplification test (971673).Effective October 03, 2021 Hepatitis Panel (4) will be made non-orderable. [facility] offers order code [id number] Acute Hepatitis. Immunoglobulin E 16 IU/mL 6-495 [facility] Work Phone: Platelets bldon 09-15-2021 Platelets (Bld) [#/Vol] 237 10*3/uL 150-450 [facility] Work Phone: [phone] Serum DNA double strand anti body assay (units/volume)on 09-15-2021 DNA double strand Ab Qn (S) [IU]/mL 0-9 [facility] Work Phone: [phone] Comment on above: Negative <5 Equivoca l 5 - 9 Positive >9 Serum Bina-1 antibody assay (u nits/volume)on 09-15-2021 Bina-1 extractable nuclear Ab Qn (S) <0.2 AI 0.0-0.9 [facility] Work Phone: [phone] Serum Scl-70 extractable nuc lear antibody assay (units/volume)on 09-15-2021 SCL-70 extractable nuclear Ab Qn (S) <0.2 AI 0.0-0.9 [facility] Work Phone: Serum Pemberton extractable nucl ear antibody detectionon 09-15-2021 P[place]ton extractable nuclear Ab Ql (S) <0.2 AI 0.0-0.9 [facility] Work Phone: Serum classic neutrophil cyt oplasmic antibody assay (units/volume)on 09-15-2021 Neutrophil cytoplasmic Ab.classic Qn (S) <1:20 titer Neg:<1:20 [facility] Work Phone: Serum mitochondria antibody detectionon 09-15-2021 Mitochondria Ab Ql (S) <20.0 Units 0.0-20.0 [facility] Work Phone: Comment on above: Negative 0.0 - 20.0 Equivocal 20.1 - 24.9 Positive >24.9Mitochondrial (M2) Antibodies are found in 90-96% ofpatients with primary biliary cirrhosis.Performed at: [address] [id number] Director: Eliseo Yañez PhD, Phone: [phone] Serum or plasma C reactive p rotein measurement (mass/volume)on 09-15-2021 CRP [Mass/Vol] 46.00 mg/L 0.0-3.0 [facility] Work Phone: Comment on above: C-Reactive Protein ( CRP) provides useful information for thediagnosis, therapy and monitoring of inflammatory processesand associated diseases. For the evaluation of Relative Riskfor Cardiovascular Disease, a High Sensitivity CRP (HSCRP)should be ordered. Serum or plasma IgA measurem ent (mass/volume)on 09-15-2021 IgA [Mass/Vol] 336 mg/dL 87-352 [facility] Work Phone: Serum or plasma IgG measurem ent (mass/volume)on 09-15-2021 IgG [Mass/Vol] 902 mg/dL [phone] [facility] Work Phone: Serum or plasma IgM measurem ent (mass/volume)on 09-15-2021 IgM [Mass/Vol] 165 mg/dL 26-217 [facility] Work Phone: Comment on above: Performed at: CB - [facility] [address] [id number] Director: Eliseo Yañez PhD, Phone: [phone] at: - [facility] [address] [id number] Director: Azalia Rosen MD, Phone: [phone] Serum or plasma actin IgG an tibody assay (units/volume)on 09-15-2021 Actin IgG Qn 4 Units 0-19 [facility] Work Phone: Comment on above: Negative 0 - 19 Weak positive 20 - 30 Moderate to strong positive >30 Actin Antibodies are found in 52-85% of patients with autoimmune hepatitis or chronic active hepatitis and in 22% of patients with primary biliary cirrhosis. Serum or plasma albumin paddy urement (mass/volume)on 09-15-2021 Albumin [Mass/Vol] 3.7 g/dL 3.2-5.0 [facility] Work Phone: [phone] Serum or plasma albumin/glob ulin mass ratioon 09-15-2021 Albumin/Globulin [Mass ratio] 0.9 {ratio} 0.9-2.4 [facility] Work Phone: [phone] Serum or plasma angiotensin converting enzyme measurement (enzymatic activity/volume)on 09-15-2021 Angiotensin converting enzyme [Catalytic activity/Vol] 33 U/L 14-82 [facility] Work Phone: [phone] Serum or plasma calcium paddy urement (mass/volume)on 09-15-2021 Calcium [Mass/Vol] 9.1 mg/dL 8.5-10.1 [facility] Work Phone: [phone] Serum or plasma creatinine m easurement (mass/volume)on 09-15-2021 Creatinine [Mass/Vol] 0.74 mg/dL 0.55-1.02 [facility] Work Phone: Comment on above: The validity of the calculated GFR & GFRAA in patients over 70 years has not been determined. Clinical correlation is essential. Serum or plasma hepatitis B virus surface antigen detection by immunoassayon 09-15-2021 HBV surface Ag IA Ql Negative Negative [facility] Work Phone: [phone] Serum or plasma urea nitroge n measurement (mass/volume)on 09-15-2021 Urea nitrogen [Mass/Vol] 21 mg/dL 7-18 [facility] Work Phone: Serum perinuclear neutrophil cytoplasmic antibody titer by immunofluorescenceon 09-15-2021 Neutrophil cytoplasmic Ab.perinuclear IF (S) [Titer] <1:20 titer Neg:<1:20 [facility] Work Phone: Comment on above: The presence of posi tive fluorescence exhibiting P-ANCA orC- ANCA patterns alone is not specific for the diagnosis ofWegener's Granulomatosis (WG) or microscopic polyangiitis.Decisions about treatment should not be based solely onANCA IFA results. The [employer] ANCA [employer] Consensusrecommends follow up testing of positive sera with both PA-3 and MPO-ANCA enzyme immunoassays. As many as 5% serumsamples are positive only by EIA. Ref. AM J Clin [id number];111:507-513. Thin prep Papanicolaou smear with manual screeningon 09-15-2021 Thin prep Papanicolaou smear with manual screening 16 U/L 15-37 [facility] Work Phone: [phone] Thin prep Papanicolaou smear with manual screening 3 5-15 [facility] Work Phone: [phone] Thin prep Papanicolaou smear with manual screening 153 U/L 84-246 [facility] Work Phone: [phone] Thin prep Papanicolaou smear with manual screening 127 ug/dL 80-158 [facility] Work Phone: [phone] Comment on above: Detection Limit = 5 Absolute lymphocyte counton 08-31-2021 Lymphocytes Auto (Unsp spec) [#/Vol] 2.01 10*3/uL 0.83-4.51 [facility] Work Phone: Basophil percentageon 2021 Basophils/100 WBC (Bld) 0.6 % 0-1 [facility] Work Phone: Chloride [Moles/Vol] 109 mmol/L 98-107 [facility] Work Phone: Eosinophils/100 WBC (Bld) 3.0 % 0-5 [facility] Work Phone: Glucose [Mass/Vol] 116 mg/dL 74-106 [facility] Work Phone: Comment on above: Fasting Glucose resu lt from 100 to 125 mg/dL suggests IMPAIRED HOMEOSTASIS per A.D.A. criteria. Neutrophils (Bld) [#/Vol] 3.5 10*3/uL 2.0-7.7 [facility] Work Phone: Neutrophils/100 WBC (Bld) 54.7 % 47-70 [facility] Work Phone: Potassium [Moles/Vol] 3.7 mmol/L 3.5-5.1 [facility] Work Phone: Sodium [Moles/Vol] 142 mmol/L 136-145 [facility] Work Phone: WBC (Bld) [#/Vol] 6.4 10*3/uL 4.4-11.0 [facility] Work Phone: Blood erythrocytes count (nu mber/volume)on 08-31-2021 RBC (Bld) [#/Vol] 2.59 10*6/uL 4.2-5.[address] [facility] Work Phone: Blood hemoglobin measurement (mass/volume)on 08-31-2021 Hemoglobin (Bld) [Mass/Vol] 7.8 g/dL 12.0-15.0 [facility] Work Phone: Blood lymphocytes/100 leukoc yteson 08-31-2021 Lymphocytes/100 WBC (Bld) 31.2 % 19-41 [facility] Work Phone: Blood monocytes/100 leukocyt eson 08-31-2021 Monocytes/100 WBC (Bld) 9.3 % 0-10 [facility] Work Phone: Blood platelet mean volumeon 08-31-2021 Platelet mean volume (Bld) [Entitic vol] 10.9 fL 6.2-12.0 [facility] Work Phone: [phone] Determination of erythrocyte mean corpuscular volume (MCV)on 08-31-2021 MCV (RBC) [Entitic vol] 96.5 fL 81-99 [facility] Work Phone: [phone] Hematocrit Auto (Bld) [Volum e fraction]on 08-31-2021 Hematocrit (Bld) [Volume fraction] 25.0 % 37-47 [facility] Work Phone: [phone] Laboratory - Chemistry and C hemistry - challengeon 08-31-2021 CO2 [Moles/Vol] 28.0 mmol/L 21.0-32.0 [facility] Work Phone: [phone] Urea nitrogen/Creatinine [Mass ratio] 8.8 mg/mg 10-20 [facility] Work Phone: [phone] Laboratory - Hematology and Cell countson 08-31-2021 Erythrocyte distribution width (RBC) [Entitic vol] 53.5 fL 35.1-43.9 [facility] Work Phone: [phone] Erythrocyte distribution width (RBC) [Ratio] 15.6 % 11.6-14.6 [facility] Work Phone: [phone] Immature granulocytes/100 WBC (Bld) 1.200 % 0.0-0.9 [facility] Work Phone: [phone] Comment on above: IG% - Immature Granu locytes (promyelocytes, myelocytes and metamyelocytes) > 1% indicates that a LEFT SHIFT is Present. MCH (RBC) [Entitic mass] 30.1 pg 27.0-32.0 [facility] Work Phone: [phone] Nucleated RBC/100 WBC (Bld) [Ratio] 0.5 % 0-5 [facility] Work Phone: [phone] MCHC Auto (RBC) [Mass/Vol]on 08-31-2021 MCHC (RBC) [Mass/Vol] 31.2 g/dL 32-36 [facility] Work Phone: No Panel Informationon 08-31 Estimated Creatinine Clearance Calc 106.26 ml/min [facility] Work Phone: Estimated GFR (MDRD) Amer 143 mL/min >60 [facility] Work Phone: Comment on above: GFR Calc Estimated GFR (MDRD) Non-Af Amer 118 mL/min >60 [facility] Work Phone: Comment on above: Non- GFR Calc Platelets bldon 08-31-2021 Platelets (Bld) [#/Vol] 257 10*3/uL 150-450 [facility] Work Phone: Serum or plasma calcium paddy urement (mass/volume)on 08-31-2021 Calcium [Mass/Vol] 8.0 mg/dL 8.5-10.1 [facility] Work Phone: [phone] Serum or plasma creatinine m easurement (mass/volume)on 08-31-2021 Creatinine [Mass/Vol] 0.56 mg/dL 0.55-1.02 [facility] Work Phone: Comment on above: The validity of the calculated GFR & GFRAA in patients over 70 years has not been determined. Clinical correlation is essential. Serum or plasma urea nitroge n measurement (mass/volume)on 08-31-2021 Urea nitrogen [Mass/Vol] 5 mg/dL 7-18 [facility] Work Phone: Thin prep Papanicolaou smear with manual screeningon 08-31-2021 Thin prep Papanicolaou smear with manual screening 5 5-15 [facility] Work Phone: [phone] Iron measurement (mass/mass) on 08-27-2021 Iron (Unsp spec) [Mass/Mass] 51 ug/dL 50-170 [facility] Work Phone: [phone] Lower GI hemoglobin IA Ql (S tl)on 08-27-2021 Stool Occult Blood (KAELA) Positive [facility] Work Phone: No Panel Informationon 08-27 Total Iron Binding Capacity 283 ug/dL 250-450 [facility] Work Phone: [phone] Troponin I High Sensitivity 5 pg/mL 3.0-54.0 [facility] Work Phone: [phone] Comment on above: Please Note: New Daniella t Units and Gender Specific Reference Ranges. For more information see Policy Stat Procedure Brock High Sensitivity Troponin (TNIH) and attachments. Serum or plasma ferritin phil surement (mass/volume)on 08-27-2021 Ferritin [Mass/Vol] 137 ng/mL 8-[address] [facility] Work Phone: [phone] Serum or plasma iron saturat ion measurement (mass fraction)on 08-27-2021 Iron saturation [Mass fraction] 18.0 % 15.0-55.0 [facility] Work Phone: [phone] Basophil percentageon 2021 Lactate [Moles/Vol] 0.6 mmol/L 0.4-2.[address] [facility] Work Phone: [phone] Basophil percentage >100 SEEN /hpf W [facility] Work Phone: [phone] Bilirubin [Mass/Vol] 0.30 mg/dL 0.20-1.00 [facility] Work Phone: [phone] Comment on above: For patients on eltr ombopag therapy, use of Dimension Brock TBIL is not recommended. Protein [Mass/Vol] 7.6 g/dL 6.4-8.2 [facility] Work Phone: [phone] Bilirubin Test strip Ql (U)o n 08-26-2021 Bilirubin Ql (U) Negative Negative [facility] Work Phone: [phone] Culture, urineon 08-26-2021 Bacteria identified Cx Nom (U) Presumptive E. coli [facility] Work Phone: [phone] Ketones Test strip Ql (U)on 08-26-2021 Ketones Ql (U) Negative Negative [facility] Work Phone: [phone] Laboratory - Chemistry and C hemistry - challengeon 08-26-2021 ALP [Catalytic activity/Vol] 113 U/L 45-117 [facility] Work Phone: ALT [Catalytic activity/Vol] 91 U/L 13-56 [facility] Work Phone: Globulin (S) [Mass/Vol] 4.2 g/dL 2.2-4.2 [facility] Work Phone: Laboratory - Microbiology an d Antimicrobial susceptibilityon 08-26-2021 Bacteria identified Cx Nom (Bld) No growth in 5 days. [facility] Work Phone: Mucus LM Ql (Urine sed)on Mucus Ql (Urine sed) 0 SEEN /hpf [facility] Work Phone: Nitrite Test strip Ql (U)on 08-26-2021 Nitrite Ql (U) Positive Negative [facility] Work Phone: [phone] Protein Test strip Ql (U)on 08-26-2021 Protein Ql (U) 30 mg/dl Negative [facility] Work Phone: Serum or plasma albumin paddy urement (mass/volume)on 08-26-2021 Albumin [Mass/Vol] 3.4 g/dL 3.2-5.0 [facility] Work Phone: [phone] Serum or plasma albumin/glob ulin mass ratioon 08-26-2021 Albumin/Globulin [Mass ratio] 0.8 {ratio} 0.9-2.4 [facility] Work Phone: Squamous epithelial cells de tection in urine sediment by light microscopyon 08-26-2021 Epithelial cells.squamous LM Ql (Urine sed) 0 SEEN /hpf [facility] Work Phone: Thin prep Papanicolaou smear with manual screeningon 08-26-2021 Thin prep Papanicolaou smear with manual screening 72 U/L 15-37 [facility] Work Phone: Urine blood detectionon RBC Ql (U) 25 /ul Negative [facility] Work Phone: RBC Ql (U) 0-5 SEEN /hpf [facility] Work Phone: Urine clarityon 08-26-2021 Clarity (U) Cloudy Clear [facility] Work Phone: Urine color determinationon 08-26-2021 Color (U) Yellow Yellow [facility] Work Phone: Urine glucose detectionon Glucose Ql (U) Normal mg/dl Normal [facility] Work Phone: Urine leukocyte esterase det ection by dipstickon 08-26-2021 Leukocyte esterase Test strip Ql (U) 500 /ul Negative [facility] Work Phone: Urine pHon 08-26-2021 pH (U) 5.0 [pH] [facility] Work Phone: Urine sediment bacteria coun t by microscopy (number/high power field)on 08-26-2021 Bacteria LM.HPF (Urine sed) [#/Area] 4 /[HPF] None Seen [facility] Work Phone: Urine specific gravity measu rementon 08-26-2021 Specific gravity (U) [Rel density] 1.020 [facility] Work Phone: Urobilinogen Auto test strip Ql (U)on 08-26-2021 Urobilinogen Ql (U) Normal mg/dl Normal [facility] Work Phone: No Panel Informationon 08-25 SARS-CoV-2 Antigen (Rapid) [facility] Work Phone: Absolute lymphocyte counton 08-18-2021 Lymphocytes Auto (Unsp spec) [#/Vol] 2.20 10*3/uL 0.83-4.51 [facility] Work Phone: Basophil percentageon 2021 Basophils/100 WBC (Bld) 0.8 % 0-1 [facility] Work Phone: Chloride [Moles/Vol] 103 mmol/L 98-107 [facility] Work Phone: Eosinophils/100 WBC (Bld) 2.9 % 0-5 [facility] Work Phone: Glucose [Mass/Vol] 113 mg/dL 74-106 [facility] Work Phone: Comment on above: Fasting Glucose resu lt from 100 to 125 mg/dL suggests IMPAIRED HOMEOSTASIS per A.D.A. criteria. Neutrophils (Bld) [#/Vol] 4.6 10*3/uL 2.0-7.7 [facility] Work Phone: Neutrophils/100 WBC (Bld) 60.4 % 47-70 [facility] Work Phone: Potassium [Moles/Vol] 4.3 mmol/L 3.5-5.1 [facility] Work Phone: Sodium [Moles/Vol] 140 mmol/L 136-145 [facility] Work Phone: WBC (Bld) [#/Vol] 7.6 10*3/uL 4.4-11.0 [facility] Work Phone: Blood erythrocytes count (nu mber/volume)on 08-18-2021 RBC (Bld) [#/Vol] 3.60 10*6/uL 4.2-5.[address] [facility] Work Phone: Blood hemoglobin measurement (mass/volume)on 08-18-2021 Hemoglobin (Bld) [Mass/Vol] 10.5 g/dL 12.0-15.0 [facility] Work Phone: Blood lymphocytes/100 leukoc yteson 08-18-2021 Lymphocytes/100 WBC (Bld) 29.1 % 19-41 [facility] Work Phone: Blood monocytes/100 leukocyt eson 08-18-2021 Monocytes/100 WBC (Bld) 6.5 % 0-10 [facility] Work Phone: Blood platelet mean volumeon 08-18-2021 Platelet mean volume (Bld) [Entitic vol] 10.8 fL 6.2-12.0 [facility] Work Phone: Determination of erythrocyte mean corpuscular volume (MCV)on 08-18-2021 MCV (RBC) [Entitic vol] 95.6 fL 81-99 [facility] Work Phone: [phone] Hematocrit Auto (Bld) [Volum e fraction]on 08-18-2021 Hematocrit (Bld) [Volume fraction] 34.4 % 37-47 [facility] Work Phone: INR in Blood by Coagulation assayon 08-18-2021 INR Coag (Bld) [Relative time] 2.1 {INR} [facility] Work Phone: [phone] Laboratory - Chemistry and C hemistry - challengeon 08-18-2021 CO2 [Moles/Vol] 31.0 mmol/L 21.0-32.0 [facility] Work Phone: [phone] Urea nitrogen/Creatinine [Mass ratio] 19.3 mg/mg 10-20 [facility] Work Phone: Laboratory - Coagulationon 0 08-18-2021 aPTT Coag (Bld) [Time] 48.1 s 24.1-36.2 [facility] Work Phone: [phone] PT Coag (PPP) [Time] 22.5 s 11.7-14.9 [facility] Work Phone: [phone] Laboratory - Hematology and Cell countson 08-18-2021 Erythrocyte distribution width (RBC) [Entitic vol] 49.5 fL 35.1-43.9 [facility] Work Phone: [phone] Erythrocyte distribution width (RBC) [Ratio] 14.2 % 11.6-14.6 [facility] Work Phone: [phone] Immature granulocytes/100 WBC (Bld) 0.300 % 0.0-0.9 [facility] Work Phone: Comment on above: IG% - Immature Granu locytes (promyelocytes, myelocytes and metamyelocytes) > 1% indicates that a LEFT SHIFT is Present. MCH (RBC) [Entitic mass] 29.2 pg 27.0-32.0 [facility] Work Phone: Nucleated RBC/100 WBC (Bld) [Ratio] 0 % 0-5 [facility] Work Phone: MCHC Auto (RBC) [Mass/Vol]on 08-18-2021 MCHC (RBC) [Mass/Vol] 30.5 g/dL 32-36 [facility] Work Phone: No Panel Informationon 08-18 Estimated Creatinine Clearance Calc 76.29 ml/min [facility] Work Phone: [phone] Estimated GFR (MDRD) Amer 99 mL/min >60 [facility] Work Phone: [phone] Comment on above: GFR Calc Estimated GFR (MDRD) Non-Af Amer 82 mL/min >60 [facility] Work Phone: Comment on above: Non- GFR Calc Platelets bldon 08-18-2021 Platelets (Bld) [#/Vol] 305 10*3/uL 150-450 [facility] Work Phone: Serum or plasma calcium paddy urement (mass/volume)on 08-18-2021 Calcium [Mass/Vol] 9.2 mg/dL 8.5-10.1 [facility] Work Phone: Serum or plasma creatinine m easurement (mass/volume)on 08-18-2021 Creatinine [Mass/Vol] 0.78 mg/dL 0.55-1.02 [facility] Work Phone: Comment on above: The validity of the calculated GFR & GFRAA in patients over 70 years has not been determined. Clinical correlation is essential. Serum or plasma urea nitroge n measurement (mass/volume)on 08-18-2021 Urea nitrogen [Mass/Vol] 15 mg/dL 7-18 [facility] Work Phone: [phone] Thin prep Papanicolaou smear with manual screeningon 08-18-2021 Thin prep Papanicolaou smear with manual screening 6 5-15 [facility] Work Phone: [phone] [facility] 02-25-20 21 [facility] * * *Final Report* * * * * * SEE BOTTOM OF REPORT FOR ADDENDED TEXT * * * DATE OF EXAM: Feb 24 2021 8:36AM AAW 0621 - [facility] / PROCEDURE REASON: Abnormal ultrasound of breast * * * * Physician Interpretation * * * * FINAL REPORT #[id number] - [facility] US BIOPSY BREAST LT #[id number] - [facility]AG[facility] ULTRASOUND GUIDED BIOPSY LEFT BREAST WITH MARKING DEVICE INSERTED AND POST DIGITAL MAMMOGRAPHIC AND ULTRASOUND IMAGIN02/24/2021 HISTORY: Abnormal Ultrasound Of Breast/ Ultrasound guided biopsy left breast. Abnormal Ultrasound Of Breast/ Ultrasound guided clip placement. PATIENT CONSENT: A time out was performed immediately prior to procedure start with the nursing and radiology team, correctly identifying the patient name, date of , procedure, anatomy (including marking of site and side), patient position, relevant diagnostic and radiology test results, safety precautions, and procedure-specific equipment needs. The procedure was explained to the patient including the risks, benefits and alternatives. Medications were also reviewed. The risks, including but not limited to infection and bleeding, were reviewed by the performing physician and the patient agreed to undergo the procedure. Dr. Decker and a cardiac catheterization technologist were present throughout the entire procedure. Audible Time Out Time: 913 Procedure Start Time: 914 Procedure Stop Time: 919 Dr. Decker performed the entire procedure without an dental assistant. PROCEDURE: Correlation is made to exams dated: 01/04/2021 ultrasound and 01/04/2021 mammogram - [facility]. An ultrasound guided biopsy using real-time ultrasound was performed for the concerning mass located in the left breast at 7 o'clock in the retroareolar region. This was described on the previous mammography and ultrasound reports. The skin was prepped in the usual manner. Local anesthetic was administered to the access site. A skin az was made in the breast. The abnormality was approached from the caudocranial aspect. A 14 gauge biopsy needle was placed adjacent to the abnormality under ultrasound guidance. Once the needle was documented to be in the correct location, three cores were obtained using a BARD biopsy device. A ribbon clip was inserted into the biopsy cavity. A skin closure strip and a sterile dressing were applied to the access site. Post procedure digital mammographic and ultrasound imaging demonstrates the location device at the targeted area. The specimens were sent to the laboratory for pathological analysis. IMPRESSION: ULTRASOUND GUIDED BIOPSY BENIGN Ultrasound guided biopsy of the mass in the left breast at 7 o'clock in the retroareolar region was successful with no apparent post procedure complications. Pathology indicates benign papilloma (PA). Pathology results are concordant with imaging findings. A surgical consultation is recommended. SUMMARY: Pathology results are as follows: FINAL DIAGNOSIS: Breast, left, 7:00 subareolar region, ribbon clip, biopsy - Benign fragments of intraductal papilloma. The patient is under the care of Dr. Yari Lui for the above results and surgical management. Stephanie dai/jessica:02/25/2021 16:08:46 Guest Services Lead(s): Lima Cunningham R.D.M.S., [employer]; RT Cathryn(R)(M), [employer] [place] Multiple national specialty organizations have released breast cancer screening guidelines for women at average risk for developing breast cancer - guidelines that are based on both evidence and opinion, yet differ on when to start and how often to screen for breast cancer. With representation from Breast Imaging, Internal Medicine, Women's Health, Family Medicine, and Medical/Surgical Oncology, the [facility] has carefully reviewed the data and reached the following consensus: 1) All women should engage in shared decision-making with their providers to decide when to start and how often to screen; 2) All women should have the opportunity to start screening mammography at age 40; 3) For women ages 45-55, we recommend annual screening mammograms; 4) For women ages 55 and over, we support both the transition from an annual to a biennial interval if this aligns more with patient's values and preferences, or continuation with annual screening; 5) All women should discuss with their providers when to stop screening mammograms. [employer]: Jessica Transcribe Date/Time: Feb 24 2021 8:36A Dictated by : STEPHANIE DECKER MD This examination was interpreted and the report reviewed and electronically signed by: STEPHANIE DECKER MD on Feb 24 2021 9:57AM EST This document has been addended by: STEPHANIE DECKER MD on Feb 25 2021 4:08PM EST [id number] [facility] * * *Final Report* * * * * * SEE BOTTOM OF REPORT FOR ADDENDED TEXT * * * DATE OF EXAM: Feb 24 2021 9:34AM AAW [id number] - [facility] BI[facility] BREAST [facility] / PROCEDURE REASON: Abnormal ultrasound of breast * * * * Physician Interpretation * * * * FINAL REPORT #[id number] - [facility] US BI[facility]SY BREAST LT #[id number] - [facility] DIAGNOSTIC LT ULTRASOUND GUIDED BIOPSY LEFT BREAST WITH MARKING DEVICE INSERTED AND POST DIGITAL MAMMOGRAPHIC AND ULTRASOUND IMAGIN02/24/2021 HISTORY: Abnormal Ultrasound Of Breast/ Ultrasound guided biopsy left breast. Abnormal Ultrasound Of Breast/ Ultrasound guided clip placement. PATIENT CONSENT: A time out was performed immediately prior to procedure start with the nursing and radiology team, correctly identifying the patient name, date of , procedure, anatomy (including marking of site and side), patient position, relevant diagnostic and radiology test results, safety precautions, and procedure-specific equipment needs. The procedure was explained to the patient including the risks, benefits and alternatives. Medications were also reviewed. The risks, including but not limited to infection and bleeding, were reviewed by the performing physician and the patient agreed to undergo the procedure. Dr. Decker and a cardiac catheterization technologist were present throughout the entire procedure. Audible Time Out Time: 913 Procedure Start Time: 914 Procedure Stop Time: 919 Dr. Decker performed the entire procedure without an dental assistant. PROCEDURE: Correlation is made to exams dated: 01/04/2021 ultrasound and 01/04/2021 mammogram - [facility]. An ultrasound guided biopsy using real-time ultrasound was performed for the concerning mass located in the left breast at 7 o'clock in the retroareolar region. This was described on the previous mammography and ultrasound reports. The skin was prepped in the usual manner. Local anesthetic was administered to the access site. A skin az was made in the breast. The abnormality was approached from the caudocranial aspect. A 14 gauge biopsy needle was placed adjacent to the abnormality under ultrasound guidance. Once the needle was documented to be in the correct location, three cores were obtained using a BARD biopsy device. A ribbon clip was inserted into the biopsy cavity. A skin closure strip and a sterile dressing were applied to the access site. Post procedure digital mammographic and ultrasound imaging demonstrates the location device at the targeted area. The specimens were sent to the laboratory for pathological analysis. IMPRESSION: ULTRASOUND GUIDED BIOPSY BENIGN Ultrasound guided biopsy of the mass in the left breast at 7 o'clock in the retroareolar region was successful with no apparent post procedure complications. Pathology indicates benign papilloma (PA). Pathology results are concordant with imaging findings. A surgical consultation is recommended. SUMMARY: Pathology results are as follows: FINAL DIAGNOSIS: Breast, left, 7:00 subareolar region, ribbon clip, biopsy - Benign fragments of intraductal papilloma. The patient is under the care of Dr. Yari Lui for the above results and surgical management. Stephanie dai/jessica:02/25/2021 16:08:46 Guest Services Lead(s): Lima Cunningham R.D.M.S., [facility]; RT Cathryn(R)(M), [facility] Multiple national specialty organizations have released breast cancer screening guidelines for women at average risk for developing breast cancer - guidelines that are based on both evidence and opinion, yet differ on when to start and how often to screen for breast cancer. With representation from Breast Imaging, Internal Medicine, Women's Health, Family Medicine, and Medical/Surgical Oncology, the [facility] has carefully reviewed the data and reached the following consensus: 1) All women should engage in shared decision-making with their providers to decide when to start and how often to screen; 2) All women should have the opportunity to start screening mammography at age 40; 3) For women ages 45-55, we recommend annual screening mammograms; 4) For women ages 55 and over, we support both the transition from an annual to a biennial interval if this aligns more with patient's values and preferences, or continuation with annual screening; 5) All women should discuss with their providers when to stop screening mammograms. Electric Stove Mechanic: Jessica Transcribe Date/Time: Feb 24 2021 8:36A Dictated by : STEPHANIE DECKER MD This examination was interpreted and the report reviewed and electronically signed by: STEPHANIE DECKER MD on Feb 24 2021 9:57AM EST This document has been addended by: STEPHANIE DECKER MD on Feb 25 2021 4:08PM EST [id number] Normal [facility] SURGICAL PATHOLOGYon 021 CASE REPORT Normal [facility] Comment on above: Order Comment: Speci men Type: TISSUE SPECIMEN Result Comment: Surg ical Pathology Report Case: [id number] Authorizing Provider: Setphanie Decker MD Collected: 02/24/2021 09:17 AM Ordering Location: [facility] Received: 02/24/2021 01:55 PM [facility] Pathologist: Noé Casillas MD Specimen: BREAST CORE BIOPSY LEFT, 7:00 subareolar region Performed By: #### S #### [facility] CLIA [id number] [address] CLINICAL HISTORY Low suspicion oval mass Normal [facility] Comment on above: Order Comment: Speci men Type: TISSUE SPECIMEN Performed By: #### S #### [facility] CLIA [id number] [address] DIAGNOSIS COMMENT Normal [facility] Comment on above: Order Comment: Speci men Type: TISSUE SPECIMEN Result Comment: The case was reviewed by Dr. Ge Chen who agrees with the diagnosis. Performed By: #### S #### [facility] CLIA [id number] [address] FINAL DIAGNOSIS Normal [facility] Comment on above: Order Comment: Speci men Type: TISSUE SPECIMEN Result Comment: [address] st, left, 7:00 subareolar region, ribbon clip, biopsy - Benign fragments of intraductal papilloma (see comment). Performed By: #### S #### [facility] CLIA [id number] [address] FINAL PERFORMING LAB Normal [facility] Comment on above: Order Comment: Speci men Type: TISSUE SPECIMEN Result Comment: Diag nostic interpretation performed at [facility], [address] [place] [address] CLIA# [id number] Stripper Latex: Ge Chen M.D. Performed By: #### S #### [facility] CLIA [id number] [address] GROSS DESCRIPTION Normal [facility] Comment on above: Order Comment: Speci men Type: TISSUE SPECIMEN Result Comment: A. B REAST CORE BIOPSY LEFT. A. Received in formalin labeled left breast 7:00 subareolar region core biopsy (ribbon clip) are multiple cylindrical yellow to white, focally hemorrhagic tissue segments aggregating to 1.5 x 1.0 x 0.1 cm. The specimen is totally submitted in 1 cassette. Time obtained 917 hours on 02/24/2021 and time placed in formalin 918 hours on the same day. Gross examination performed at [facility], [address] February 24, 2021 2:19 PM Performed By: #### S #### [facility] CLIA [id number] [address] CNPNon 12-16-2020 CNPN Telephone (AGSPINE1) FELISHA PERRIN ([id number]) 1965 F Date Time Provider Department 12/16/20 LAURIE BOB AGSPINE1 During your visit today, we recorded the following information about you: Latisha Chappellsier 12/16/2020 1:29 PM Signed The background check and OARRS report have been scanned into the chart. The patient would be coming in for low back pain. This is a [facility] referral. The referring physician is PCP. The patient has medicaid insurance. Please review. OARRS Reports- Narcotics: 200 Overdose Risk: 230 Have you had Pain Management in the past 3 years? UNKNOWN PLEASE ASK If yes, where? Are you currently taking pain medication? UNKNOWN PLEASE ASK If so, please list: Latisha Riley 12/16/2020 1:29 PM Signed Attempted to contact the patient, but their voicemail box was full. Latisha Riley Allergies As of Date: 12/16/2020 Noted Allergy Reaction ASPIRIN 08/24/2013 7 - Swelling DEMEROL (MEPERIDINE (PF)) 06/26/2009 FISH 11/19/2012 7 - Swelling ONION 11/19/2012 10 - Anaphylaxis PEACH 11/19/2012 10 - Anaphylaxis PEANUT 11/19/2012 10 - Anaphylaxis PENICILLINS 06/26/2009 SHELLFISH 11/19/2012 10 - Anaphylaxis TORADOL (KETOROLAC TROMETHAMINE) 04/03/2012 4 - Hives ULTRAM (TRAMADOL) 06/26/2009 4 - Hives Comments: Swelling of tongue Date Reviewed: 12/15/2020 Reviewed by: Andria Butler LPN - Fully Assessed Reason for Visit: New Patient [172] Prescriptions as of 12/16/2020 Sig: LOSARTAN 100 MG TABLET Take 1 tablet by mouth once d* OMEPRAZOLE 40 MG CAPSULE,ARELI* Take 1 capsule by mouth once * ATORVASTATIN 80 MG TABLET Take 1 tablet by mouth once d* FUROSEMIDE 20 MG TABLET Take 1 tablet by mouth once d* SPIRONOLACTONE 50 MG TABLET Take 1 tablet by mouth once d* LEVETIRACETAM 500 MG TABLET Take 1 tablet by mouth twice * VENLAFAXINE ER 75 MG CAPSULE,* Take 75 mg by mouth once kaye* VENLAFAXINE ER 37.5 MG CAPSUL* Take 37.5 mg by mouth once da* METOPROLOL SUCCINATE ER 100 M* Take 1 tablet by mouth once d* IPRATROPIUM 0.5 MG-ALBUTEROL * INHALE 1 VIAL VIA NEBULIZER E* ALBUTEROL SULFATE HFA 90 MCG/* INHALE 2 PUFFS BY MOUTH THREE* MOMETASONE-FORMOTEROL HFA 100* Inhale 2 Puffs as instructed * MOMETASONE 0.1 % TOPICAL CREAM APPLY 1 APPLICATION TO AFFECT* CALCIUM 600 ORAL Take 1 tablet by mouth once d* RIVAROXABAN 20 MG TABLET Take 1 tablet by mouth daily * COMPOUNDED PRESCRIPTION PORTABLE OXYGEN VIA NASAL CAN* CLONAZEPAM 0.5 MG TABLET Take 1 tablet by mouth twice * Problem List As Of Date 12/16/2020 Noted Resolved Abdominal pain [R10.9] 04/03/2012 07/07/2015 UTI (urinary tract infection) [N39.0] 04/03/2012 12/21/2015 Stroke (HCC) [I63.9] 04/03/2012 12/21/2015 Obesity [E66.9] 04/03/2012 07/07/2015 HTN (hypertension) [I10] 04/03/2012 09/03/2018 Eating disorder, unspecified [F50.9] 10/10/2012 Morbid obesity (HCC) [E66.01] 09/03/2018 Hypothyroidism [E03.9] 09/03/2018 Unilateral emphysema (HCC) [J43.0] 12/21/2015 Hypertension [I10] 07/07/2015 GERD (gastroesophageal reflux disease) [K21.9] Anxiety [F41.9] Arthritis [M19.90] Asthma [J45.909] 09/26/2017 Depression [F32.9] Epilepsy (HCC) [G40.909] Ulcer of the stomach and intestine [K28.9] 12/21/2015 Smoker [F17.200] Stroke (cerebrum) (HCC) [I63.9] 07/07/2015 Severe ankle sprain [S93.409A] 09/16/2015 05/07/2017 Chronic bilateral low back pain without sciatic*12/10/2015 Prediabetes [R73.03] 12/21/2015 09/03/2018 Pulmonary embolism (HCC) [I26.99] 01/17/2016 05/28/2017 Hypoxemia [R09.02] 01/17/2016 09/26/2017 STEPHANIE (obstructive sleep apnea) [G47.33] 02/02/2016 Asthma with chronic obstructive pulmonary disea*10/23/2016 Mixed hyperlipidemia [E78.2] 11/17/2016 Pulmonary hypertension, secondary (HCC) [QRV162*11/17/2016 History of DVT of lower extremity [Z86.718] 12/28/2016 Colonic mass [K63.89] 03/02/2017 09/26/2017 Obesity, Class III, BMI >= 40 [E66.01] 01/01/2018 Restrictive lung disease secondary to obesity [*03/11/2018 Anemia [D64.9] 05/15/2018 Acquired renal cyst [N28.1] 09/03/2018 Essential hypertension [I10] 10/08/2018 Encounter Status:Closed by LATISHA RILEY on 12/16/20 [facility] Office Visit: Rodriguez 05-09-20 Dietary management education, guidance, and counseling (procedure) yes Invalid Interpretation Code [facility] Work Phone: Documentation of current medications (procedure) Done Invalid Interpretation Code [facility] Work Phone: Protein mass conc Done Invalid Interpretation Code [facility] Work Phone: Protein mass conc yes Invalid Interpretation Code [facility] Work Phone: Smoking cessation education (procedure) yes Invalid Interpretation Code [facility] Work Phone: Tobacco smoking status NHIS Never Invalid Interpretation Code [facility] Work Phone: Tobacco smoking status NHIS Current every day smoker Invalid Interpretation Code [facility] Work Phone: Tobacco use CP Current every day smoker Invali d Interpretation Code [facility] Work Phone: Office Visit: momo killian diseaseon 03-29-2017 Dietary management education, guidance, and counseling (procedure) yes Invalid Interpretation Code [facility] Work Phone: Documentation of current medications (procedure) Done Invalid Interpretation Code [facility] Work Phone: Protein mass conc Done [facility] Work Phone: Tobacco smoking status NHIS Never [facility] Work Phone: Tobacco smoking status NHIS Current every day smoker [facility] Work Phone: Tobacco use [facility] Current every day smoker Invali d Interpretation Code [facility] Work Phone: ANES Reyna 03-14-2017 ANES POST HNO ID: [id number] thor: Stephen WaddellService: AnesthesiologyAuthor Type: AnesthesiologistType: Anesthesia PostOpFiled: 03/14/2017 2:46 PMNote Text:POST ANESTHESIA EVALUATION NOTESERVICE DATE: 03/14/2017SERVICE TIME: 1230DOB: 1965Vitals: 03/14/1711Temp: 36 ?C (96.8 ?F) 36.3 ?C (97.3 ?F) 36.1 ?C (97 ?F) 03/14/1712BP: 114/65 137/78 154/90 145/78 03/14/1712Pulse: 72 69 72 69 03/14/1712Resp: 16 16 16 16 03/14/1712SpO2: 98% 99% 99% 94%Validated Vital Signs: YESNo apparent anesthetic complications. The patient is appropriatelyhydrated with stable respiratory and cardiovascular status. Patient hassafe and adequate airway control. The patient has appropriate pain reliefand no significant post operative nausea or vomiting. The patient hasachieved baseline mental status.Further assessment by Anesthesia Service: NoneOther Remarks:SIGNATURE: Stephen Waddell MD PATIENT NAME: Felisha PerrinDATE: March 14, 2017 : 2:46 PM PAGER/CONTACT #: [phone] [facility] PREOPon 03-14-2017 ANE PREOP HNO ID: [id number] thor: Stephen WaddellService: AnesthesiologyAuthor Type: AnesthesiologistType: Anesthesia PreOpFiled: 03/14/2017 10:27 AMNote Text: ANESTHESIOLOGY DAY OF SURGERY NOTESERVICE DATE: 03/14/2017SERVICE TIME: 10:26 AMDOB: 1965Procedure(s) (LRB):COLONOSCOPY (N/A)Surgeon(s):Julian RothmananEstimated body mass index is 46.81 kg/(m2) as calculated from thefollowing: Height as of this encounter: 167.6 cm (5' 6). Weight as of this encounter: 131.5 kg (290 lb).Most recent hematocrit and potassium results:Hematocrit 37.3 06/06/2015Potassium 4.1 03/14/2016ANES DOS/PREOP NOTE:Vitals: BP: 170/98Pulse: 76Resp: 16Temp: 36 ?C (96.8 ?F)TempSrc: Temporal ArterySpO2: 100%Weight: 131.5 kg (290 lb)Height: 167.6 cm (5' 6)ACTIVE PROBLEM LISTHtn (Hypertension)Eating Disorder, UnspecifiedMorbid Obesity (Hcc)HypothyroidismHyperlip idemiaGerd (Gastroesophageal Reflux Disease)AnxietyArthritisAst hmaDepressionEpilepsy (Hcc)SmokerCystocele With RectoceleSevere Ankle SprainChronic Bilateral Low Back Pain Without SciaticaPrediabetesPulmonar y Embolism (Hcc)HypoxemiaOsa (Obstructive Sleep Apnea)Chronic Obstructive Pulmonary Disease With Acute Exacerbation (Hcc)Mixed HyperlipidemiaMorbid Obesity With Bmi of 45.0-49.9, Adult (Hcc)Pulmonary Hypertension, Secondary ([facility])History of Dvt of Lower ExtremityMass of colon on CT scanColonic [facility] MEDICAL HISTORYDiagnosis Date- Amaurosis fugax 04/03/2012- Anxiety- Arthritis- Asthma- Depression- Eating disorder, unspecified 10/10/2012- Emphysema- Epilepsy (HCC) Last 06/19/15- GERD (gastroesophageal reflux disease)- History of recurrent deep vein thrombosis (DVT) [facility] record- Hyperlipidemia- Hypertension- Hypothyroidism- Morbid obesity (HCC)- STEPHANIE (obstructive sleep apnea) 02/02/2016 [facility] record- Panic disorder with agoraphobia 10/10/2012- PE (pulmonary embolism) 2011 questionable- Prediabetes 12/21/2015- Pulmonary embolism (HCC) 01/17/2016- Severe ankle sprain 09/16/2015- Smoker 1 PPD- 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 h/o right side weakness- Ulcer of the stomach and intestinePAST SURGICAL HISTORYProcedure Laterality Date- APPENDECTOMY 2000- REMOVAL GALLBLADDER 1998- TOTAL ABDOM HYSTERECTOMY 1999 benignFAMILY HISTORYProblem Relation Age of Onset- Cancer Mother age 89 leukemia No diabetes- GI cancer [OTHER] Father age 79 stomach cancer- NE [OTHER] Brother at early age- Breast Cancer Sister 3 sistersSocial History:Social HistorySubstance Use Topics- Smoking status: Former Smoker Packs/day: 1.00 Years: 32.00 Types: Cigarettes Quit date: 01/21/2016- Smokeless tobacco: Never Used- Alcohol use NoNo current facility-administered medications on file prior to encounter.Current Outpatient Prescriptions on File Prior to Encounter:metoprolol succinate ER (TOPROL XL) 50 mg 24 hr tablet Take 1 tablet bymouth once daily.spironolactone (ALDACTONE) 25 mg tablet TAKE 1 TABLET BY MOUTH ONCE DAILYlevETIRAcetam (KEPPRA) 500 mg tablet Take 1 tablet by mouth twice daily.Omeprazole 40 mg capsule Take 1 capsule by mouth once daily.atorvastatin (LIPITOR) 80 mg tablet Take 1 tablet by mouth once daily.losartan (COZAAR) 100 mg tablet Take 1 tablet by mouth once daily.ipratropium-albuterol (DUONEB) 0.5 mg-3 mg(2.5 mg base)/3 mL nebu Inhale 3mL as instructed every 4 hours as needed.clonazePAM (KLONOPIN) 0.5 mg tablet Take 1 tablet by mouth twice daily asneeded for Anxiety. Per [facility].mometasone (ELOCON) 0.1 % cream Apply 1 application to affected area oncedaily as needed (facial rash. Avoid eyes, nose, mouth.).XARELTO 20 mg tablet TAKE 1 TABLET BY MOUTH ONCE DAILY WITH SUPPERCOMPOUNDED PRESCRIPTION OXYGEN 2 LPM VIA NASAL CANNULA.Current Facility-Administered Medications:NaCl 0.9% iv infusion 30 mL/hr INTRAVENOUS CONTINUOUS Julian RothmananAllergies:ALLERGIESA llergen Reactions- Aspirin Swelling- Demerol [Meperidine*- Fish Swelling- Onion Anaphylaxis- [place] Anaphylaxis- Peanut Anaphylaxis- Penicillins- Shellfish Anaphylaxis- Toradol [Ketorolac * Hives- Ultram [Tramadol] Hives Swelling of tongueDOS EXAM: Adequate NPO Status: YesAnesthetic Risks, Benefits, Alternatives, Personnel and Consent Discussed:YesPatient agrees to proceed: YesPrevious Anesthesia: No history of adverse eventAirway Assessment: MP 2; Neck ROM: Full ROM without neurologic symptoms;Airway Evaluation: No significant abnormalitiesSymptoms of Sleep Apnea: yesDentition: Teeth intactAdditional Physical Exam:Lungs: Patient health status unchanged since recent history and physical.See history and physical for exam findings.Cardiac: Patient health status unchanged since recent history andphysical. See history and physical for exam findings.Additional Pertinent Findings: N/ABlood Products: Not anticipated for this procedureAnesthetic Plan: MAC with general as back upAnesthetic Monitoring: Standard ASA MonitorsPain Management Plan: Parenteral or OralASA Class: 3Other Medical Problems: NoneChronic Beta Juan José medication administered within 24 hours: N/AI have interviewed and examined the patient. I have reviewed the medicalrecord and/or the pre-anesthesia evaluation, pertinent labs, and testresults.Significant changes in the patient's condition since the History andPhysical, not otherwise documented in primary service progress notes: NoThis contains updated information obtained within 48 hours ofSurgery/Procedure.SIGNATU RE: Stephen Waddell MD PATIENT NAME: Felisha PerrinDATE: March 14, 2017 : 10:26 AM CSN: [id number] [facility] NURSING PROGon 03-13-2017 NURSING PROG HNO ID: [id number] thor: Cathy (Rn) LAINE Krauseervice: (none)Author Type: Registered NurseType: Nursing Progress NoteFiled: 03/13/2017 1:44 PMNote Text:H and P 03/02/17 by Geoff Hopkins CNP. Labs 01/27/17 cbc/diff- hgb 11.7,hct36.4. Ekg 05/2016 NSR,high voltage QRS, PRWP. Stress ,scanned EF57%, Normal per report. Echo 10/2016, scanned, EF 65%, mild PH. BMI48.0Hx PE 12/2015-on Xarelto, asthma,STEPHANIE,epilepsy 2014, stroke with right sidedweakness 2008,Pre DM.Telephone encounter between Geoff Hopkins CNP and Dr Griffiths--stop Xarelto2 days before procedure and resume day after. Dr Davies office had spokento pt.Needs pre op instructions, ML x1 Sulema,RN1:45pm Spoke with pt per phone and reviewed pre op instructions. Pt hasDr Neelima bowel prep instructions. Clear liquids ok up to 2 hs prior toarrival. Ok to take toprol, keppra,omeprazole am of or with sip of water,Use nebulizer,inhaler if needed and bring inhaler dos. Shower pre op, nocreams,lotios,powders dos. Loose clothing,no rings, jewelry, valuables,contacts,piercing s dos. Pt on Cpap--instructed to bring dos. Aware ifgets sick or unable to come in- notify surgeon. Aware time to be calledtoday- if not contacted by 3pm- given [facility] to call for time.Transportation post op per Fiance,per pt. Pt verfied that she stoppedXarelto 2 days (last dose 03/11/17) prior to surgery per instructions. Ptstates no issues with anesthesia. Chart check complete PAT Leone Normal [facility] HOSPon 03-02-2017 HOSP Patient:Felisha Perrin MRN: Height:5' 6(1.676 m)Weight:290 lb (131.543 kg)Outpatient Medications as of 03/14/17:metoprolol succinate ER (TOPROL XL) 50 mg 24 hr tabletmometasone (ELOCON) 0.1 % creamspironolactone (ALDACTONE) 25 mg tabletXARELTO 20 mg tabletlevETIRAcetam (KEPPRA) 500 mg tabletOmeprazole 40 mg capsuleatorvastatin (LIPITOR) 80 mg tabletlosartan (COZAAR) 100 mg tabletipratropium-albuterol (DUONEB) 0.5 mg-3 mg(2.5 mg base)/3 mL nebuclonazePAM (KLONOPIN) 0.5 mg tabletCOMPOUNDED PRESCRIPTIONAdmission/Clini c Administered Medications as of 03/14/17:NaCl 0.9% iv infusionProblem List:HTN (hypertension) [I10]Eating disorder, unspecified [F50.9]Morbid obesity (HCC) [E66.01]Hypothyroidism [E03.9]Hyperlipidemia [E78.5]GERD (gastroesophageal reflux disease) [K21.9]Anxiety [F41.9]Arthritis [M19.90]Asthma [J45.909]Depression [F32.9]Epilepsy (HCC) [G40.909]Smoker [F17.200]Cystocele with rectocele [N81.10, N81.6]Severe ankle sprain [S93.409A]Chronic bilateral low back pain without sciatica [M54.5, G89.29]Prediabetes [R73.03]Pulmonary embolism (HCC) [I26.99]Hypoxemia [R09.02]STEPHANIE (obstructive sleep apnea) [G47.33]Chronic obstructive pulmonary disease with acute exacerbation (HCC) [J44.1]Mixed hyperlipidemia [E78.2]Morbid obesity with BMI of 45.0-49.9, adult (HCC) [E66.01, Z68.42]Pulmonary hypertension, secondary (HCC) [I27.2]History of DVT of lower extremity [Z86.718]Mass of colon on CT scan [K63.9]Colonic mass [K63.9]Allergies:AspirinDem klaudia [Meperidine (Pf)]FishOnionPeachPeanutPe nicillinsShellfishToradol [Ketorolac Tromethamine]Ultram [Tramadol]Date Verified: 03/14/17Lab ValuesNo results within the last 30 days for the following basenames: K,HCTProgress Notes ([facility]):Theodora Christianson Pharm-T 03/07/2017 3:06 PM SignedPharmacist Refill Authorization ReviewName: Felisha Summers [facility] HospitalN: [id number]: 03/07/2017Time: 3:06 PMRefill authorization request(s) received via pharmacy request and reviewed undereffective consult agreement. Upon review, did confirm that an activepatient-provider relationship exists and that the prescriber is a participatingphysician under the consult agreement.The medication(s) fall under the following categories:Category 3: 1 corresponding medication(s) does not qualify for renewal due to avalid prescription still being active at pharmacy. Sent 02/22/17 for 45 gramsAdditional actions taken: None at this time.Theodora Christianson Pharm-TPharmacy Managed Authorization CenterPhone Current Outpatient Prescriptions:HYDROcodone-a cetaminophen (NORCO) 5-325 mg per tablet Take 1 tablet by mouthtwice daily as needed (flank pain.) for up to 7 days.metoprolol succinate ER (TOPROL XL) 50 mg 24 hr tablet Take 1 tablet by mouthonce daily.mometasone (ELOCON) 0.1 % cream Apply 1 application to affected area once dailyas needed (facial rash. Avoid eyes, nose, mouth.).spironolactone (ALDACTONE) 25 mg tablet TAKE 1 TABLET BY MOUTH ONCE DAILYXARELTO 20 mg tablet TAKE 1 TABLET BY MOUTH ONCE DAILY WITH SUPPERlevETIRAcetam (KEPPRA) 500 mg tablet Take 1 tablet by mouth twice daily.Omeprazole 40 mg capsule Take 1 capsule by mouth once daily.atorvastatin (LIPITOR) 80 mg tablet Take 1 tablet by mouth once daily.losartan (COZAAR) 100 mg tablet Take 1 tablet by mouth once daily.ipratropium-albuterol (DUONEB) 0.5 mg-3 mg(2.5 mg base)/3 mL nebu Inhale 3 mL asinstructed every 4 hours as needed.clonazePAM (KLONOPIN) 0.5 mg tablet Take 1 tablet by mouth twice daily as neededfor Anxiety. Per [facility].COMPOUNDED PRESCRIPTION OXYGEN 2 LPM VIA NASAL CANNULA.No current facility-administered medications for this visit.Progress Notes ([facility] CR):Abbi Landa LPN 03/02/2017 11:09 AM SignedSpoke with Librado and [facility] colon[facility]. [facility] will be notified with [facility] date and time. 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 Left ventricular Ejection fraction 65 % Invalid Interpretation Code [facility] Phone: [phone] Tobacco use [facility] Former smoker Invalid Interpretation Code [facility] Phone: Office Visiton 01-18-2017 Dietary management education, guidance, and counseling (procedure) yes Invalid Interpretation Code [facility] Phone: Documentation of current medications (procedure) Done Invalid Interpretation Code [facility] Phone: Fall risk assessment No Invalid Interpretation Code [facility] Phone: Protein mass conc Done [facility] Phone: [phone] Tobacco smoking status NHIS Former smoker [facility] Phone: [phone] Tobacco use [facility] Former smoker Invalid Interpretation Code [facility] Phone: Replaced Document: Kelby Maguire 01-18-2017 EKG QRS axis -6 deg Invalid Interpretation Code [facility] Work Phone: electrocardiogram interpretation Sinus Rhythm WITHIN NORMAL LIMITS Invalid Interpretation Code [facility] Phone: GE use only - for LinkLogic import when terms are not otherwise specified 434 ms Invalid Interpretation Code [facility] Phone: Interpretation Sinus Rhythm WITHIN NORMAL LIMITS Invalid Interpretation Code [employer] Work Phone: P [place] 29 deg Invalid Interpretation Code [facility] Work Phone: P wave axis, electrocardiogram 29 deg Invalid Interpretation Code [facility] Phone: PA Interval 166 ms Invalid Interpretation Code [facility] Phone: PA interval, electrocardiogram 166 ms Invalid Interpretation Code [facility] Phone: Pulse (Heart Rate) 82 /min Invalid Interpretation Code [facility] Phone: QRS axis, electrocardiogram -6 deg Invalid Interpretation Code [facility] Phone: QRS Duration 100 ms Invalid Interpretation Code [facility] Phone: QRS duration, electrocardiogram 100 ms Invalid Interpretation Code [facility] Phone: QT Interval new path ms Invalid Interpretation Code [facility] [employer] Work Phone: QT interval, electrocardiogram new path ms Invalid Interpretation Code [facility] Phone: [phone] QTc Gutiérrez 434 ms Invalid Interpretation Code [facility] Work Phone: T [place] 13 deg Invalid Interpretation Code [facility] Work Phone: T wave axis, electrocardiogram 13 deg Invalid Interpretation Code [facility] Phone: Office Visit: STEPHANIE & COPDon 0 01-02-2017 Documentation of current medications (procedure) Done Invalid Interpretation Code [facility] Phone: Protein mass conc Done [facility] Work Phone: Tobacco smoking status NHIS Never Invalid Interpretation Code [facility] Work Phone: Tobacco smoking status NHIS Former smoker [facility] Work Phone: Tobacco use [facility] Former smoker Invalid Interpretation Code [facility] Work Phone: Office Visit: hosp f/uon Protein mass conc Done [facility] Work Phone: Tobacco smoking status NHIS Never [facility] Work Phone: Tobacco smoking status NHIS Former smoker [facility] Work Phone: Clinical Lists 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 Anion gap 24 mmol/L High [facility] Work Phone: Anion gap 4 molar conc 24 High [facility] Work Phone: Anion gap molar conc 24 mmol/L High [facility] Work Phone: Calcium mass conc 9.9 mg/dL Invalid Interpretation Code [facility] Work Phone: [phone] Chloride molar conc 98 mmol/L Invalid Interpretation Code [facility] Work Phone: Cholesterol in HDL mass conc 65 mg/dL Invalid Interpretation Code [facility] Work Phone: Cholesterol in LDL mass conc 156 mg/dL High [facility] Work Phone: Cholesterol in LDL/Cholesterol in HDL mass ratio 2.40 Invalid Interpretation Code [facility] Work Phone: Cholesterol mass conc 256 mg/dL High [facility] Work Phone: Cholesterol.total/Cho lesterol in HDL mass ratio 3.94 {ratio} Invalid Interpretation Code [facility] Work Phone: CO2 21 mmol/L Low [facility] Work Phone: CO2 ppres (BldV) 21 mmol/L Low [facility] Work Phone: [phone] Creatinine mass conc 0.70 mg/dL Invalid Interpretation Code [facility] Work Phone: [phone] Glucose 121 mg/dL High [facility] Work Phone: [phone] Glucose mass conc 121 mg/dL High [facility] Work Phone: [phone] Lipoprotein.pre-beta mass conc 35 mg/dL Invalid Interpretation Code [facility] Work Phone: [phone] Potassium molar conc 4.1 mmol/L Invalid Interpretation Code [facility] Work Phone: [phone] Sodium molar conc 143 mmol/L Invalid Interpretation Code [facility] Work Phone: [phone] Thyrotropin Qn 1.410 u[iU]/mL Invalid Interpretation Code [facility] Work Phone: [phone] Triglyceride mass conc 175 mg/dL High [facility] Work Phone: [phone] Urea nitrogen mass conc 7 mg/dL Low [facility] Work Phone: [phone] Culture, urine Bacteria identified Cx Nom (U) Escherichia coli [facility] Work Phone: [phone] Bacteria identified Cx Nom (U) Streptococcus agalactiae (B) [facility] Work Phone: [phone] Bacteria identified Cx Nom (U) Positive [facility] Work Phone: [phone] Laboratory - Microbiology an d Antimicrobial susceptibility Bacteria identified Cx Nom (Bld) No growth in 5 days. [facility] Work Phone: [phone] No Panel Information SARS-CoV-2 & FLU Antigen (Rapid) [facility] Work Phone: [phone] Vital Signs Date Time Vital Sign Value Performing Clinician Facility 01-08-2025 08:34-0400 Body height 167.[address] Ysabel Ruffin MD Work Phone: [facility] 01-08-2025 08:34-0400 Body mass index (BMI) [Ratio] 47.4 kg/m2 Dr. Ysabel Ruffin MD Work Phone: [facility] 01-08-2025 08:34-0400 Body temperature 98.2 [degF] Dr. Ysabel Ruffin MD Work Phone: [facility] 01-08-2025 08:34-0400 Body weight 133.[address] Ysabel Ruffin MD Work Phone: [facility] 01-08-2025 08:34-0400 Diastolic blood pressure 72 mm[Hg] Dr. Ysabel Ruffin MD Work Phone: [facility] 01-08-2025 08:34-0400 Heart rate 72 /min Dr. Ysabel Ruffin MD Work Phone: [facility] 01-08-2025 08:34-0400 Respiratory rate 15 /min Dr. Ysabel Ruffin MD Work Phone: [facility] 01-08-2025 08:34-0400 SaO2% (BldA) [Mass fraction] 98 % Dr. Ysabel Ruffin MD Work Phone: [facility] 01-08-2025 08:34-0400 Systolic blood pressure 108 mm[Hg] Dr. Ysabel Ruffin MD Work Phone: [facility] 12-29-2024 09:11-0400 Body height 167.[address] Ysabel Ruffin MD Work Phone: [facility] 12-29-2024 09:11-0400 Body mass index (BMI) [Ratio] 47.4 kg/m2 Dr. Ysabel Ruffin MD Work Phone: [facility] 12-29-2024 09:11-0400 Body temperature 97.1 [degF] Dr. Ysabel Ruffin MD Work Phone: [facility] 12-29-2024 09:11-0400 Body weight 133.[address] Ysabel Ruffin MD Work Phone: [facility] 12-29-2024 09:11-0400 Diastolic blood pressure 76 mm[Hg] Dr. Ysabel Ruffin MD Work Phone: [facility] 12-29-2024 09:11-0400 Heart rate 78 /min Dr. Ysabel Ruffin MD Work Phone: [facility] 12-29-2024 09:11-0400 Inhaled oxygen flow rate 3 L/min Dr. Ysabel Ruffin MD Work Phone: [facility] 12-29-2024 09:11-0400 Respiratory rate 16 /min Dr. Ysabel Ruffin MD Work Phone: [facility] 12-29-2024 09:11-0400 SaO2% (BldA) [Mass fraction] 94 % Dr. Ysabel Ruffin MD Work Phone: [facility] 12-29-2024 09:11-0400 Systolic blood pressure 106 mm[Hg] Dr. Ysabel Ruffin MD Work Phone: [facility] 11-20-2024 11:48-0400 Body temperature 98.4 [degF] Dr. Ysabel Ruffin MD Work Phone: [facility] 11-20-2024 11:48-0400 Diastolic blood pressure 77 mm[Hg] Dr. Ysabel Ruffin MD Work Phone: [facility] 11-20-2024 11:48-0400 Heart rate 81 /min Dr. Ysabel Ruffin MD Work Phone: [facility] 11-20-2024 11:48-0400 Respiratory rate 18 /min Dr. Ysabel Ruffin MD Work Phone: [facility] 11-20-2024 11:48-0400 SaO2% (BldA) [Mass fraction] 94 % Dr. Ysabel Ruffin MD Work Phone: [facility] 11-20-2024 11:48-0400 Systolic blood pressure 126 mm[Hg] Dr. Ysabel Ruffin MD Work Phone: [facility] 11-20-2024 10:48-0400 Body height 167.[address] Ysabel Ruffin MD Work Phone: [facility] 11-20-2024 10:48-0400 Inhaled oxygen flow rate 3 L/min Dr. Ysabel Ruffin MD Work Phone: [facility] 11-14-2024 07:36-0400 Body temperature 97.4 [degF] Dr. Ysabel Ruffin MD Work Phone: [facility] 11-14-2024 07:36-0400 Diastolic blood pressure 58 mm[Hg] Dr. Ysabel Ruffin MD Work Phone: [facility] 11-14-2024 07:36-0400 Heart rate 108 /min Dr. Ysabel Ruffin MD Work Phone: [facility] 11-14-2024 07:36-0400 Inhaled oxygen flow rate 3 L/min Dr. Ysabel Ruffin MD Work Phone: [facility] 11-14-2024 07:36-0400 Respiratory rate 18 /min Dr. Ysabel Ruffin MD Work Phone: [facility] 11-14-2024 07:36-0400 SaO2% (BldA) [Mass fraction] 97 % Dr. Ysabel Ruffin MD Work Phone: [facility] 11-14-2024 07:36-0400 Systolic blood pressure 114 mm[Hg] Dr. Ysabel Ruffin MD Work Phone: [facility] 08-28-2024 15:25-0500 Body mass index (BMI) [Ratio] 41.9 kg/m2 Dr. Ysabel Ruffin MD Work Phone: [facility] 08-28-2024 15:25-0500 Body temperature 96.5 [degF] Dr. Ysabel Ruffin MD Work Phone: [facility] 08-28-2024 15:25-0500 Body weight 117.[address] Ysabel Ruffin MD Work Phone: [facility] 08-28-2024 15:25-0500 Diastolic blood pressure 78 mm[Hg] Dr. Ysabel Ruffin MD Work Phone: [facility] 08-28-2024 15:25-0500 Heart rate 75 /min Dr. Ysabel Ruffin MD Work Phone: [facility] 08-28-2024 15:25-0500 Respiratory rate 18 /min Dr. Ysabel Ruffin MD Work Phone: [facility] 08-28-2024 15:25-0500 SaO2% (BldA) [Mass fraction] 99 % Dr. Ysabel Ruffin MD Work Phone: [facility] 08-28-2024 15:25-0500 Systolic blood pressure 118 mm[Hg] Dr. Ysabel Ruffin MD Work Phone: [facility] 08-15-2024 16:18-0500 Body temperature 98.2 [degF] Dr. Ysabel Ruffin MD Work Phone: [facility] 08-15-2024 16:18-0500 Diastolic blood pressure 70 mm[Hg] Dr. Ysabel Ruffin MD Work Phone: [facility] 08-15-2024 16:18-0500 Heart rate 61 /min Dr. Ysabel Ruffin MD Work Phone: [facility] 08-15-2024 16:18-0500 Inhaled oxygen flow rate 2 L/min Dr. Ysabel Ruffin MD Work Phone: [facility] 08-15-2024 16:18-0500 Respiratory rate 18 /min Dr. Ysabel Ruffin MD Work Phone: [facility] 08-15-2024 16:18-0500 SaO2% (BldA) [Mass fraction] 99 % Dr. Ysabel Ruffin MD Work Phone: [facility] 08-15-2024 16:18-0500 Systolic blood pressure 111 mm[Hg] Dr. Ysabel Ruffin MD Work Phone: [facility] 08-15-2024 05:41-0500 Body mass index (BMI) [Ratio] 46.6 kg/m2 Dr. Ysabel Ruffin MD Work Phone: [facility] 08-15-2024 05:41-0500 Body weight [address] Ysabel Ruffin MD Work Phone: [facility] 08-15-2024 00:10-0500 Inhaled oxygen concentration 30 % Dr. Ysabel Ruffin MD Work Phone: [facility] 07-02-2023 23:45-0500 Diastolic blood pressure 60 mm[facility]Hg[facility] 23:45-0500 Heart rate 68 /min Dr. Hunt [facility] 07-02-2023 23:45-0500 Respiratory rate 18 /min Dr. Hunt [facility] 07-02-2023 23:45-0500 SaO2% (BldA) [Mass fraction] 96 % Dr. Hunt [facility] 07-02-2023 23:45-0500 Systolic blood pressure 122 mm[Hg[facility]-02-2023 20:05-0500 Body height 167.[address] [facility] 20:05-0500 Body mass index (BMI) [Ratio] 42.7 kg/m2 [facility] 07-02-2023 20:05-0500 Body temperature 97.5 [degF] [facility] 20:05-0500 Body weight 120.[address] [facility]02-[facility] 20:05-0500 Inhaled oxygen flow rate 3 L/min Dr. Marilee Yu [facility] 07-02-2023 14:46-0500 Body mass index (BMI) [Ratio] 46.3 kg/m2 Dr. Marilee Yu [facility] 07-02-2023 14:46-0500 Body temperature 98 [degF] Dr. Marilee Yu [facility] 07-02-2023 14:46-0500 Body weight 130.[address] Marilee Yu [facility] 07-02-2023 14:46-0500 Diastolic blood pressure 70 mm[Hg] Dr. Marilee Yu [facility] 07-02-2023 14:46-0500 Heart rate 82 /[facility]-02-[facility]23 14:46-0500 Respiratory rate 16 /[facility] 07-02-2023 14:46-0500 SaO2% (BldA) [Mass fraction] 97 % Dr. Hunt [facility] 07-02-2023 14:46-0500 Systolic blood pressure 112 mm[Hg] Dr. Marilee Yu [facility] 02-08-2023 00:14-0400 Diastolic blood pressure 71 mm[Hg] [facility] 02-08-2023 00:14-0400 Heart rate 70 /min [facility] 02-08-2023 00:14-0400 Respiratory rate 14 /min [facility] 02-08-2023 00:14-0400 SaO2% (BldA) [Mass fraction] 100 % [facility] 02-08-2023 00:14-0400 Systolic blood pressure 133 mm[Hg] [facility] 02-07-2023 22:10-0400 Inhaled oxygen flow rate 3 L/min [facility] 02-07-2023 22:06-0400 Body height 167.64 cm [facility] 02-07-2023 22:06-0400 Body mass index (BMI) [Ratio] 43.6 kg/m2 [facility] 02-07-2023 22:06-0400 Body temperature 96.5 [degF] [facility] 02-07-2023 22:06-0400 Body weight 122.7 kg [facility] 06-06-2022 14:11-0500 Heart rate 62 /min Dr. Alvarez Montanez Work Phone: [facility] Work Phone: 06-06-2022 14:11-0500 Respiratory rate 18 /min Dr. Alvarez Montanez Work Phone: [facility] Work Phone: 06-06-2022 14:00-0500 Body temperature 97.5 [degF] Dr. Alvarez Montanez Work Phone: [facility] Work Phone: 06-06-2022 14:00-0500 Diastolic blood pressure 68 mm[Hg] Dr. Alvarez Montanez Work Phone: [facility] Work Phone: 06-06-2022 14:00-0500 Heart rate 50 /min Dr. Alvarez Montanez Work Phone: [facility] Work Phone: 06-06-2022 14:00-0500 Respiratory rate 13 /min Dr. Alvarez Montanez Work Phone: [facility] Work Phone: 06-06-2022 14:00-0500 SaO2% (BldA) [Mass fraction] 100 % Dr. Alvarez Montanez Work Phone: [facility] Work Phone: 06-06-2022 14:00-0500 Systolic blood pressure 98 mm[Hg] Dr. Alvarez Montanez Work Phone: [facility] Work Phone: 06-06-2022 13:47-0500 Body temperature 97.6 [degF] Dr. Alvarez Montanez Work Phone: [facility] Work Phone: 06-06-2022 13:47-0500 Diastolic blood pressure 59 mm[Hg] Dr. Alvarez Montanez Work Phone: [facility] Work Phone: 06-06-2022 13:47-0500 Inhaled oxygen flow rate 2 L/min Dr. Alvarez Montanez Work Phone: [facility] Work Phone: 06-06-2022 13:47-0500 SaO2% (BldA) [Mass fraction] 98 % Dr. Alvarez Montanez Work Phone: [facility] Work Phone: 06-06-2022 13:47-0500 Systolic blood pressure 96 mm[Hg] Dr. Alvarez Montanez Work Phone: [facility] Work Phone: 06-06-2022 13:13-0500 Body height 167.[address] Alvarez Montanez Work Phone: [facility] Work Phone: 06-06-2022 13:13-0500 Body weight 116.[address] Alvarez Montanez Work Phone: [facility] Work Phone: 06-06-2022 02:57-0500 Body mass index (BMI) [Ratio] 41.4 kg/m2 Dr. Alvarez Montanez Work Phone: [facility] Work Phone: 06-06-2022 00:08-0500 Inhaled oxygen flow rate 2 L/min Dr. Alvarez Montanez Work Phone: [facility] Work Phone: 06-05-2022 20:06-0500 Body height 167.[address] Alvarez Montanez Work Phone: [facility] Work Phone: 06-05-2022 20:06-0500 Body mass index (BMI) [Ratio] 24.2 kg/m2 Dr. Alvarez Montanez Work Phone: [facility] Work Phone: 06-05-2022 20:06-0500 Body weight 68.[address] Alvarez Montanez Work Phone: [facility] Work Phone: 06-05-2022 15:00-0500 Body temperature 96 [degF] Dr. Alvarez Montanez Work Phone: [facility] Work Phone: 06-05-2022 15:00-0500 Body weight 114.[address] Alvarez Montanez Work Phone: [facility] Work Phone: 06-05-2022 15:00-0500 Diastolic blood pressure 78 mm[Hg] Dr. Alvarez Montanez Work Phone: [facility] Work Phone: 06-05-2022 15:00-0500 Heart rate 75 /min Dr. Alvarez Montanez Work Phone: [facility] Work Phone: 06-05-2022 15:00-0500 Respiratory rate 16 /min Dr. Alvarez Montanez Work Phone: [facility] Work Phone: 06-05-2022 15:00-0500 SaO2% (BldA) [Mass fraction] 99 % Dr. Alvarez Montanez Work Phone: [facility] Work Phone: 06-05-2022 15:00-0500 Systolic blood pressure 112 mm[Hg] Dr. Alvarez Montanez Work Phone: [facility] Work Phone: 04-01-2022 16:29-0400 Diastolic blood pressure 85 mm[Hg] Dr. Alvarez Montanez Work Phone: [facility] Work Phone: 04-01-2022 16:29-0400 Heart rate 80 /min Dr. Alvarez Montanez Work Phone: [facility] Work Phone: 04-01-2022 16:29-0400 Respiratory rate 17 /min Dr. Alvarez Montanez Work Phone: [facility] Work Phone: 04-01-2022 16:29-0400 Systolic blood pressure 124 mm[Hg] Dr. Alvarez Montanez Work Phone: [facility] Work Phone: 04-01-2022 14:58-0400 Inhaled oxygen flow rate 2 L/min Dr. Alvarez Montanez Work Phone: [facility] Work Phone: 04-01-2022 14:58-0400 SaO2% (BldA) [Mass fraction] 99 % Dr. Alvarez Montanez Work Phone: [facility] Work Phone: 04-01-2022 12:47-0400 Body height 167.[address] Alvarez Montanez Work Phone: [facility] Work Phone: 04-01-2022 12:47-0400 Body mass index (BMI) [Ratio] 40.6 kg/m2 Dr. Alvarez Montanez Work Phone: [facility] Work Phone: 04-01-2022 12:47-0400 Body temperature 98.3 [degF] Dr. Alvarez Montanez Work Phone: [facility] Work Phone: 04-01-2022 12:47-0400 Body weight 114.[address] Alvarez Montanez Work Phone: [facility] Work Phone: 03-19-2022 16:44-0400 Inhaled oxygen flow rate 3 L/min Dr. Alvarez Montanez Work Phone: [facility] Work Phone: 03-19-2022 16:44-0400 SaO2% (BldA) [Mass fraction] 98 % Dr. Alvarez Montanez Work Phone: [facility] Work Phone: 03-19-2022 14:28-0400 Body height 165.[address] Alvarez Montanez Work Phone: [facility] Work Phone: 03-19-2022 14:28-0400 Body mass index (BMI) [Ratio] 43.2 kg/m2 Dr. Alvarez Montanez Work Phone: [facility] Work Phone: 03-19-2022 14:28-0400 Body temperature 98.7 [degF] Dr. Alvarez Montanez Work Phone: [facility] Work Phone: 03-19-2022 14:28-0400 Body weight [address] Alvarez Montanez Work Phone: [facility] Work Phone: 03-19-2022 14:28-0400 Diastolic blood pressure 65 mm[Hg] Dr. Alvarez Montanez Work Phone: [facility] Work Phone: 03-19-2022 14:28-0400 Heart rate 65 /min Dr. Alvarez Montanez Work Phone: [facility] Work Phone: 03-19-2022 14:28-0400 Respiratory rate 18 /min Dr. Alvarez Montanez Work Phone: [facility] Work Phone: 03-19-2022 14:28-0400 Systolic blood pressure 117 mm[Hg] Dr. Alvarez Montanez Work Phone: [facility] Work Phone: 03-15-2022 17:02-0400 Body height 165.[address] Alvarez Montanez Work Phone: [facility] Work Phone: 03-15-2022 17:02-0400 Body mass index (BMI) [Ratio] 37.4 kg/m2 Dr. Alvarez Montanez Work Phone: [facility] Work Phone: 03-15-2022 17:02-0400 Body temperature 98.2 [degF] Dr. Alvarez Montanez Work Phone: [facility] Work Phone: 03-15-2022 17:02-0400 Body weight 102.[address] Alvarez Montanez Work Phone: [facility] Work Phone: 03-15-2022 17:02-0400 Diastolic blood pressure 86 mm[Hg] Dr. Alvarez Montanez Work Phone: [facility] Work Phone: 03-15-2022 17:02-0400 Heart rate 69 /min Dr. Alvarez Montanez Work Phone: [facility] Work Phone: 03-15-2022 17:02-0400 Inhaled oxygen flow rate 3 L/min Dr. Alvarez Montanez Work Phone: [facility] Work Phone: 03-15-2022 17:02-0400 Respiratory rate 14 /min Dr. Alvarez Montanez Work Phone: [facility] Work Phone: 03-15-2022 17:02-0400 SaO2% (BldA) [Mass fraction] 98 % Dr. Alvarez Montanez Work Phone: [facility] Work Phone: 03-15-2022 17:02-0400 Systolic blood pressure 120 mm[Hg] Dr. Alvarez Montanez Work Phone: [facility] Work Phone: 03-15-2022 15:16-0400 Body mass index (BMI) [Ratio] 36.3 kg/m2 Dr. Alvarez Montanez Work Phone: [facility] Work Phone: 03-15-2022 15:16-0400 Body temperature 97.7 [degF] Dr. Alvarez Montanez Work Phone: [facility] Work Phone: 03-15-2022 15:16-0400 Body weight 102.[address] Alvarez Montanez Work Phone: [facility] Work Phone: 03-15-2022 15:16-0400 Diastolic blood pressure 80 mm[Hg] Dr. Alvarez Montanez Work Phone: [facility] Work Phone: 03-15-2022 15:16-0400 Heart rate 70 /min Dr. Alvarez Montanez Work Phone: [facility] Work Phone: 03-15-2022 15:16-0400 Inhaled oxygen flow rate 3 L/min Dr. Alvarez Montanez Work Phone: [facility] Work Phone: 03-15-2022 15:16-0400 Respiratory rate 14 /min Dr. Alvarez Montanez Work Phone: [facility] Work Phone: 03-15-2022 15:16-0400 SaO2% (BldA) [Mass fraction] 99 % Dr. Alvarez Montanez Work Phone: [facility] Work Phone: 03-15-2022 15:16-0400 Systolic blood pressure 104 mm[Hg] Dr. Alvarez Montanez Work Phone: [facility] Work Phone: 03-06-2022 21:05-0400 Diastolic blood pressure 54 mm[Hg] Dr. Alvarez Montanez Work Phone: [facility] Work Phone: 03-06-2022 21:05-0400 Heart rate 68 /min Dr. Alvarez Montanez Work Phone: [facility] Work Phone: 03-06-2022 21:05-0400 Systolic blood pressure 121 mm[Hg] Dr. Alvarez Montanez Work Phone: [facility] Work Phone: 03-06-2022 18:27-0400 Inhaled oxygen flow rate 3 L/min Dr. Alvarez Montanez Work Phone: [facility] Work Phone: 03-06-2022 18:27-0400 Respiratory rate 24 /min Dr. Alvarez Montanez Work Phone: [facility] Work Phone: 03-06-2022 18:27-0400 SaO2% (BldA) [Mass fraction] 99 % Dr. Alvarez Montanez Work Phone: [facility] Work Phone: 03-06-2022 16:44-0400 Body height 167.[address] Alvarez Montanez Work Phone: [facility] Work Phone: 03-06-2022 16:44-0400 Body mass index (BMI) [Ratio] 36.3 kg/m2 Dr. Alvarez Montanez Work Phone: [facility] Work Phone: 03-06-2022 16:44-0400 Body temperature 97.8 [degF] Dr. Alvarez Montanez Work Phone: [facility] Work Phone: 03-06-2022 16:44-0400 Body weight 102.[address] Alvarez Montanez Work Phone: [facility] Work Phone: 02-20-2022 14:19-0400 Body temperature 96.8 [degF] Alvarez Montanez MD Work Phone: [facility] 02-20-2022 14:19-0400 Diastolic blood pressure 68 mm[Hg] Alvarez Montanez MD Work Phone: [facility] 02-20-2022 14:19-0400 Heart rate 68 /min Alvarez Montanez MD Work Phone: [facility] [facility] 02-20-2022 14:19-0400 Respiratory rate 20 /min Alvarez Montanez MD Work Phone: [facility] 02-20-2022 14:19-0400 SaO2% (BldA) [Mass fraction] 97 % Alvarez Montanez MD Work Phone: [facility] 02-20-2022 14:19-0400 Systolic blood pressure 106 mm[Hg] Alvarez Montanez MD Work Phone: [facility] 02-12-2022 17:55-0400 Diastolic blood pressure 76 mm[Hg] Dr. Alvarez Montanez Work Phone: [facility] Work Phone: 02-12-2022 17:55-0400 Heart rate 62 /min Dr. Alvarez Montanez Work Phone: [facility] Work Phone: 02-12-2022 17:55-0400 Respiratory rate 16 /min Dr. Alvarez Montanez Work Phone: [facility] Work Phone: 02-12-2022 17:55-0400 SaO2% (BldA) [Mass fraction] 99 % Dr. Alvarez Montanez Work Phone: [facility] Work Phone: 02-12-2022 17:55-0400 Systolic blood pressure 120 mm[Hg] Dr. Alvarez Montanez Work Phone: [facility] Work Phone: 02-12-2022 15:34-0400 Body height 165.[address] Alvarez Montanez Work Phone: [facility] Work Phone: 02-12-2022 15:34-0400 Body mass index (BMI) [Ratio] 43.2 kg/m2 Dr. Alvarez Montanez Work Phone: [facility] Work Phone: 02-12-2022 15:34-0400 Body temperature 97 [degF] Dr. Alvarez Montanez Work Phone: [facility] Work Phone: 02-12-2022 15:34-0400 Body weight 117.[address] Alvarez Montanez Work Phone: [facility] Work Phone: 02-12-2022 15:34-0400 Inhaled oxygen flow rate 3 L/min Dr. Alvarez Montanez Work Phone: [facility] Work Phone: 01-30-2022 18:45-0400 Body temperature 96.49 [degF] Alvarez Montanez MD Work Phone: [facility] 01-30-2022 18:45-0400 Diastolic blood pressure 82 mm[Hg] Alvarez Montanez MD Work Phone: [facility] 01-30-2022 18:45-0400 Heart rate 80 /min Alvarez Montanez MD Work Phone: [facility] 01-30-2022 18:45-0400 Respiratory rate 20 /min Alvarez Montanez MD Work Phone: [facility] 01-30-2022 18:45-0400 SaO2% (BldA) [Mass fraction] 100 % Alvarez Montanez MD Work Phone: [facility] 01-30-2022 18:45-0400 Systolic blood pressure 130 mm[Hg] Alvarez Montanez MD Work Phone: [facility] 01-19-2022 14:15-0400 Body temperature 97.8 [degF] Dr. Alvarez Montanez Work Phone: [facility] Work Phone: 01-19-2022 14:15-0400 Diastolic blood pressure 53 mm[Hg] Dr. Alvarez Montanez Work Phone: [facility] Work Phone: 01-19-2022 14:15-0400 Heart rate 67 /min Dr. Alvarez Montanez Work Phone: [facility] Work Phone: 01-19-2022 14:15-0400 Inhaled oxygen flow rate 2 L/min Dr. Alvarez Montanez Work Phone: [facility] Work Phone: 01-19-2022 14:15-0400 Respiratory rate 18 /min Dr. Alvarez Montanez Work Phone: [facility] Work Phone: 01-19-2022 14:15-0400 SaO2% (BldA) [Mass fraction] 97 % Dr. Alvarez Montanez Work Phone: [facility] Work Phone: 01-19-2022 14:15-0400 Systolic blood pressure 95 mm[Hg] Dr. Alvarez Montanez Work Phone: [facility] Work Phone: 01-19-2022 06:00-0400 Body weight 118.[address] Alvarez Montanez Work Phone: [facility] Work Phone: 01-18-2022 04:02-0400 Body height 165.[address] Alvarez Montanez Work Phone: [facility] Work Phone: 01-18-2022 04:02-0400 Body mass index (BMI) [Ratio] 42.8 kg/m2 Dr. Alvarez Montanez Work Phone: [facility] Work Phone: 01-18-2022 03:11-0400 Body temperature 97.7 [degF] Dr. Alvarez Montanez Work Phone: [facility] Work Phone: 01-18-2022 03:11-0400 Diastolic blood pressure 62 mm[Hg] Dr. Alvarez Montanez Work Phone: [facility] Work Phone: 01-18-2022 03:11-0400 Heart rate 55 /min Dr. Alvarez Montanez Work Phone: [facility] Work Phone: 01-18-2022 03:11-0400 Respiratory rate 18 /min Dr. Alvarez Montanez Work Phone: [facility] Work Phone: 01-18-2022 03:11-0400 SaO2% (BldA) [Mass fraction] 100 % Dr. Alvarez Montanez Work Phone: [facility] Work Phone: 01-18-2022 03:11-0400 Systolic blood pressure 119 mm[Hg] Dr. Alvarez Montanez Work Phone: [facility] Work Phone: 01-17-2022 23:34-0400 Body height 165.[address] Alvarez Montanez Work Phone: [facility] Work Phone: 01-17-2022 23:34-0400 Body mass index (BMI) [Ratio] 43.9 kg/m2 Dr. Alvarez Montanez Work Phone: [facility] Work Phone: 01-17-2022 23:34-0400 Body weight 119.[address] Alvraez Montanez Work Phone: [facility] Work Phone: 01-15-2022 22:06-0400 Diastolic blood pressure 71 mm[Hg] Dr. Alvarez Montanez Work Phone: [facility] Work Phone: 01-15-2022 22:06-0400 Heart rate 56 /min Dr. Alvarez Montanez Work Phone: [facility] Work Phone: 01-15-2022 22:06-0400 Respiratory rate 17 /min Dr. Alvarez Montanez Work Phone: [facility] Work Phone: 01-15-2022 22:06-0400 SaO2% (BldA) [Mass fraction] 99 % Dr. Alvarez Montanez Work Phone: [facility] Work Phone: 01-15-2022 22:06-0400 Systolic blood pressure 107 mm[Hg] Dr. Alvarez Montanez Work Phone: [facility] Work Phone: 01-15-2022 22:00-0400 Inhaled oxygen flow rate 2 L/min Dr. Alvarez Montanez Work Phone: [facility] Work Phone: 01-15-2022 19:01-0400 Body height 167.[address] Alvarez Montanez Work Phone: [facility] Work Phone: 01-15-2022 19:01-0400 Body mass index (BMI) [Ratio] 42.6 kg/m2 Dr. Alvarez Montanez Work Phone: [facility] Work Phone: 01-15-2022 19:01-0400 Body temperature 97.8 [degF] Dr. Alvarez Montanez Work Phone: [facility] Work Phone: 01-15-2022 19:01-0400 Body weight 119.[address] Alvarez Montanez Work Phone: [facility] Work Phone: 01-10-2022 22:33-0400 Diastolic blood pressure 76 mm[Hg] Dr. Alvarez Montanez Work Phone: [facility] Work Phone: 01-10-2022 22:33-0400 Heart rate 82 /min Dr. Alvarez Montanez Work Phone: [facility] Work Phone: 01-10-2022 22:33-0400 Respiratory rate 16 /min Dr. Alvarez Montanez Work Phone: [facility] Work Phone: 01-10-2022 22:33-0400 SaO2% (BldA) [Mass fraction] 98 % Dr. Alvarez Montanez Work Phone: [facility] Work Phone: 01-10-2022 22:33-0400 Systolic blood pressure 106 mm[Hg] Dr. Alvarez Montanez Work Phone: [facility] Work Phone: 01-10-2022 18:44-0400 Inhaled oxygen flow rate 2 L/min Dr. Alvarez Montanez Work Phone: [facility] Work Phone: 01-10-2022 17:30-0400 Body temperature 96.8 [degF] Dr. Alvarez Montanez Work Phone: [facility] Work Phone: 01-10-2022 17:28-0400 Body height 167.[address] Alvarez Montanez Work Phone: [facility] Work Phone: 01-10-2022 17:28-0400 Body mass index (BMI) [Ratio] 38.7 kg/m2 Dr. Alvarez Montanez Work Phone: [facility] Work Phone: 01-10-2022 17:28-0400 Body weight 108.[address] Alvarez Montanez Work Phone: [facility] Work Phone: 12-14-2021 15:02-0400 Body temperature 98.1 [degF] Dr. Alvarez Montanez Work Phone: [facility] Work Phone: 12-14-2021 15:02-0400 Diastolic blood pressure 68 mm[Hg] Dr. Alvarez Montanez Work Phone: [facility] Work Phone: 12-14-2021 15:02-0400 Heart rate 64 /min Dr. Alvarez Montanez Work Phone: [facility] Work Phone: 12-14-2021 15:02-0400 Respiratory rate 17 /min Dr. Alvarez Montanez Work Phone: [facility] Work Phone: 12-14-2021 15:02-0400 SaO2% (BldA) [Mass fraction] 99 % Dr. Alvarez Montanez Work Phone: [facility] Work Phone: 12-14-2021 15:02-0400 Systolic blood pressure 168 mm[Hg] Dr. Alvarez Montanez Work Phone: [facility] Work Phone: 12-14-2021 13:20-0400 Body height 165.[address] Alvarez Montanez Work Phone: [facility] Work Phone: 12-14-2021 13:20-0400 Body mass index (BMI) [Ratio] 39.9 kg/m2 Dr. Alvarez Montanez Work Phone: [facility] Work Phone: 12-14-2021 13:20-0400 Body weight 108.[address] Alvarez Montanez Work Phone: [facility] Work Phone: 12-14-2021 13:20-0400 Inhaled oxygen flow rate 3 L/min Dr. Alvarez Montanez Work Phone: [facility] Work Phone: 12-12-2021 15:38-0400 Body temperature 98.2 [degF] Dr. Alvarez Montanez Work Phone: [facility] Work Phone: 12-12-2021 15:38-0400 Diastolic blood pressure 90 mm[Hg] Dr. Alvarez Montanez Work Phone: [facility] Work Phone: 12-12-2021 15:38-0400 Heart rate 68 /min Dr. Alvarez Montanez Work Phone: [facility] Work Phone: 12-12-2021 15:38-0400 Respiratory rate 16 /min Dr. Alvarez Montanez Work Phone: [facility] Work Phone: 12-12-2021 15:38-0400 SaO2% (BldA) [Mass fraction] 97 % Dr. Alvarez Montanez Work Phone: [facility] Work Phone: 12-12-2021 15:38-0400 Systolic blood pressure 128 mm[Hg] Dr. Alvarez Montanez Work Phone: [facility] Work Phone: 12-12-2021 15:38-0400 Body temperature 98.2 [degF] Dr. Alvarez Montanez Work Phone: [facility] Work Phone: 12-12-2021 15:38-0400 Diastolic blood pressure 90 mm[Hg] Dr. Alvarez Montanez Work Phone: [facility] Work Phone: 12-12-2021 15:38-0400 Heart rate 68 /min Dr. Alvarez Montanez Work Phone: [facility] Work Phone: 12-12-2021 15:38-0400 Respiratory rate 16 /min Dr. Alvarez Montanez Work Phone: [facility] Work Phone: 12-12-2021 15:38-0400 SaO2% (BldA) [Mass fraction] 97 % Dr. Alvarez Montanez Work Phone: [facility] Work Phone: 12-12-2021 15:38-0400 Systolic blood pressure 128 mm[Hg] Dr. Alvarez Montanez Work Phone: [facility] Work Phone: 11-03-2021 20:54-0400 Diastolic blood pressure 69 mm[Hg] Dr. Alvarez Montanez Work Phone: [facility] Work Phone: 11-03-2021 20:54-0400 Heart rate 99 /min Dr. Alvarez Montanez Work Phone: [facility] Work Phone: 11-03-2021 20:54-0400 Respiratory rate 20 /min Dr. Alvarez Montanez Work Phone: [facility] Work Phone: 11-03-2021 20:54-0400 Systolic blood pressure 110 mm[Hg] Dr. Alvarez Montanez Work Phone: [facility] Work Phone: 11-03-2021 20:53-0400 SaO2% (BldA) [Mass fraction] 96 % Dr. Alvarez Montanez Work Phone: [facility] Work Phone: 11-03-2021 19:16-0400 Inhaled oxygen flow rate 2 L/min Dr. Alvarez Montanez Work Phone: [facility] Work Phone: 11-03-2021 17:19-0400 Body height 167.[address] Alvarez Montanez Work Phone: [facility] Work Phone: 11-03-2021 17:19-0400 Body mass index (BMI) [Ratio] 42.5 kg/m2 Dr. Alvarez Montanez Work Phone: [facility] Work Phone: 11-03-2021 17:19-0400 Body temperature 97.7 [degF] Dr. Alvarez Montanez Work Phone: [facility] Work Phone: 11-03-2021 17:19-0400 Body weight 119.[address] Alvarez Montanez Work Phone: [facility] Work Phone: 10-31-2021 08:47-0400 Body temperature 98.6 [degF] Dr. Alvarez Montanez Work Phone: [facility] Work Phone: 10-31-2021 08:47-0400 Diastolic blood pressure 78 mm[Hg] Dr. Alvarez Montanez Work Phone: [facility] Work Phone: 10-31-2021 08:47-0400 Heart rate 70 /min Dr. Alvarez Montanez Work Phone: [facility] Work Phone: 10-31-2021 08:47-0400 Respiratory rate 18 /min Dr. Alvarez Montanez Work Phone: [facility] Work Phone: 10-31-2021 08:47-0400 SaO2% (BldA) [Mass fraction] 96 % Dr. Alvarez Montanez Work Phone: [facility] Work Phone: 10-31-2021 08:47-0400 Systolic blood pressure 112 mm[Hg] Dr. Alvarez Montanez Work Phone: [facility] Work Phone: 10-31-2021 08:47-0400 Body temperature 98.6 [degF] Dr. Alvarez Montanez Work Phone: [facility] Work Phone: 10-31-2021 08:47-0400 Diastolic blood pressure 78 mm[Hg] Dr. Alvarez Montanez Work Phone: [facility] Work Phone: 10-31-2021 08:47-0400 Heart rate 70 /min Dr. Alvarez Montanez Work Phone: [facility] Work Phone: 10-31-2021 08:47-0400 Respiratory rate 18 /min Dr. Alvarez Montanez Work Phone: [facility] Work Phone: 10-31-2021 08:47-0400 SaO2% (BldA) [Mass fraction] 96 % Dr. Alvarez Montanez Work Phone: [facility] Work Phone: 10-31-2021 08:47-0400 Systolic blood pressure 112 mm[Hg] Dr. Alvarez Montanez Work Phone: [facility] Work Phone: 10-18-2021 13:09-0400 Body height 167.6 cm Chilo Matthew PA-C Work Phone: [facility] 10-18-2021 13:09-0400 Body temperature 96.91 [degF] Chilo Matthew PA-C Work Phone: [facility] 10-18-2021 13:09-0400 Body weight 113.4 kg Chilo Matthew PA-C Work Phone: [facility] 10-18-2021 13:09-0400 Diastolic blood pressure 70 mm[Hg] Chilo Matthew PA-C Work Phone: [facility] 10-18-2021 13:09-0400 Heart rate 66 /min Chilo Matthew PA-C Work Phone: [facility] 10-18-2021 13:09-0400 Respiratory rate 14 /min Chilo Matthew PA-C Work Phone: [facility] 10-18-2021 13:09-0400 SaO2% (BldA) [Mass fraction] 99 % Chilo Matthew PA-C Work Phone: [facility] 10-18-2021 13:09-0400 Systolic blood pressure 98 mm[Hg] Chilo Matthew PA-C Work Phone: [facility] 09-22-2021 21:44-0500 Diastolic blood pressure 60 mm[Hg] Dr. Alvarez Monatnez Work Phone: [facility] Work Phone: 09-22-2021 21:44-0500 Heart rate 78 /min Dr. Alvarez Montanez Work Phone: [facility] Work Phone: 09-22-2021 21:44-0500 Respiratory rate 16 /min Dr. Alvarez Montanez Work Phone: [facility] Work Phone: 09-22-2021 21:44-0500 Systolic blood pressure 110 mm[Hg] Dr. Alvarez Montanez Work Phone: [facility] Work Phone: 09-22-2021 20:44-0500 Diastolic blood pressure 60 mm[Hg] Dr. Alvarez Montanez Work Phone: [facility] Work Phone: 09-22-2021 20:44-0500 Heart rate 78 /min Dr. Alvarez Montanez Work Phone: [facility] Work Phone: 09-22-2021 20:44-0500 Respiratory rate 16 /min Dr. Alvarez Montanez Work Phone: [facility] Work Phone: 09-22-2021 20:44-0500 Systolic blood pressure 110 mm[Hg] Dr. Alvarez Montanez Work Phone: [facility] Work Phone: 09-22-2021 18:06-0500 Body temperature 96.8 [degF] Dr. Alvarez Montanez Work Phone: [facility] Work Phone: 09-22-2021 18:06-0500 SaO2% (BldA) [Mass fraction] 98 % Dr. Alvarez Montanez Work Phone: [facility] Work Phone: 09-22-2021 18:04-0500 Body mass index (BMI) [Ratio] 38.7 kg/m2 Dr. Alvarez Montanez Work Phone: [facility] Work Phone: 09-22-2021 18:04-0500 Body weight 108.[address] Alvarez Montanez Work Phone: [facility] Work Phone: 09-22-2021 17:06-0500 Body temperature 96.8 [degF] Dr. Alvarez Montanez Work Phone: [facility] Work Phone: 09-22-2021 17:06-0500 SaO2% (BldA) [Mass fraction] 98 % Dr. Alvarez Montanez Work Phone: [facility] Work Phone: 09-22-2021 17:04-0500 Body height 167.[address] Alvarez Montanez Work Phone: [facility] Work Phone: 09-22-2021 17:04-0500 Body mass index (BMI) [Ratio] 38.7 kg/m2 Dr. Alvarez Montanez Work Phone: [facility] Work Phone: 09-22-2021 17:04-0500 Body weight 108.[address] Alvarez Montanez Work Phone: [facility] Work Phone: 08-31-2021 10:58-0500 Body temperature 98.3 [degF] Dr. Alvarez Montanez Work Phone: [facility] Work Phone: 08-31-2021 10:58-0500 Diastolic blood pressure 81 mm[Hg] Dr. Alvarez Montanez Work Phone: [facility] Work Phone: 08-31-2021 10:58-0500 Heart rate 62 /min Dr. Alvarez Montanez Work Phone: [facility] Work Phone: 08-31-2021 10:58-0500 Respiratory rate 16 /min Dr. Alvarez Montanez Work Phone: [facility] Work Phone: 08-31-2021 10:58-0500 SaO2% (BldA) [Mass fraction] 99 % Dr. Alvarez Montanez Work Phone: [facility] Work Phone: 08-31-2021 10:58-0500 Systolic blood pressure 118 mm[Hg] Dr. Alvarez Montanez Work Phone: [facility] Work Phone: 08-31-2021 04:48-0500 Body weight [address] Alvarez Montanez Work Phone: [facility] Work Phone: 08-29-2021 08:33-0500 Body mass index (BMI) [Ratio] 41.7 kg/m2 Dr. Alvarez Montanez Work Phone: [facility] Work Phone: 08-18-2021 12:37-0500 Diastolic blood pressure 85 mm[Hg] Dr. Alvarez Montanez Work Phone: [facility] Work Phone: 08-18-2021 12:37-0500 Heart rate 66 /min Dr. Alvarez Montanez Work Phone: [facility] Work Phone: 08-18-2021 12:37-0500 Respiratory rate 19 /min Dr. Alvarez Montanez Work Phone: [facility] Work Phone: 08-18-2021 12:37-0500 SaO2% (BldA) [Mass fraction] 96 % Dr. Alvarez Montanez Work Phone: [facility] Work Phone: 08-18-2021 12:37-0500 Systolic blood pressure 118 mm[Hg] Dr. Alvarez Montanez Work Phone: [facility] Work Phone: 08-18-2021 09:55-0500 Body mass index (BMI) [Ratio] 42.4 kg/m2 Dr. Alvarez Montanez Work Phone: [facility] Work Phone: 08-18-2021 09:55-0500 Body temperature 98.1 [degF] Dr. Alvarez Montanez Work Phone: [facility] Work Phone: 08-18-2021 09:55-0500 Body weight 119.[address] Alvarez Montanez Work Phone: [facility] Work Phone: 07-22-2021 09:40-0500 Body mass index (BMI) [Ratio] 33.3 kg/m2 Dr. Alvarez Montanez Work Phone: [facility] Work Phone: 07-22-2021 09:40-0500 Body temperature 98.4 [degF] Dr. Alvarez Montanez Work Phone: [facility] Work Phone: 07-22-2021 09:40-0500 Body weight 90.[address] Alvarez Montanez Work Phone: [facility] Work Phone: 07-22-2021 09:40-0500 Diastolic blood pressure 97 mm[Hg] Dr. Alvarez Montanez Work Phone: [facility] Work Phone: 07-22-2021 09:40-0500 Heart rate 102 /min Dr. Alvarez Montanez Work Phone: [facility] Work Phone: 07-22-2021 09:40-0500 Respiratory rate 16 /min Dr. Alvarez Montanez Work Phone: [facility] Work Phone: 07-22-2021 09:40-0500 SaO2% (BldA) [Mass fraction] 99 % Dr. Alvarez Montanez Work Phone: [facility] Work Phone: 07-22-2021 09:40-0500 Systolic blood pressure 134 mm[Hg] Dr. Alvarez Montanez Work Phone: [facility] Work Phone: 05-09-2017 05:49-0400 BMI (Body Mass Index) 49.22 kg/m2 Yolanda Skinner [facility] Work Phone: 05-09-2017 05:49-0400 Body Temperature 97.5 [degF] Yolanda Skinner [facility] Work Phone: 05-09-2017 05:49-0400 BP Diastolic 106 mm[Hg] Yolanda Skinner [facility] Work Phone: 05-09-2017 05:49-0400 BP Systolic 140 mm[Hg] Yolanda Skinner [facility] Work Phone: 05-09-2017 05:49-0400 Height 167.64 cm Yolanda Skinner [facility] Work Phone: 05-09-2017 05:49-0400 Pulse (Heart Rate) 98 /min Yolanda Skinner [facility] Work Phone: 05-09-2017 05:49-0400 Respiratory Rate 18 /min Yolanda Skinner [facility] Work Phone: 05-09-2017 05:49-0400 Weight 138.35 kg Yolanda Skinner [facility] Work Phone: 03-29-2017 06:30-0400 BMI (Body Mass Index) 50.51 kg/m2 Alba Cedeno [facility] Work Phone: 03-29-2017 06:30-0400 Body Temperature 98.2 [degF] Alba Cedeno [facility] Work Phone: 03-29-2017 06:30-0400 BP Diastolic 82 mm[Hg] Alba Cedeno [facility] Work Phone: 03-29-2017 06:30-0400 BP Systolic 156 mm[Hg] Alba Cedeno [facility] Work Phone: 03-29-2017 06:30-0400 Height 167.64 cm Alba York [facility] Work Phone: 03-29-2017 06:30-0400 Pulse (Heart Rate) 80 /min Alba York [facility] Work Phone: 03-29-2017 06:30-0400 Respiratory Rate 18 /min Alba York [facility] Work Phone: 03-29-2017 06:30-0400 Weight 141.98 kg Alba Cedeno [facility] Work Phone: 01-18-2017 15:05-0400 Heart rate 82 /min Harumi DeFinis [facility] Work Phone: 01-18-2017 14:48-0400 BMI (Body Mass Index) 47.12 kg/m2 Get Christianson DO [facility] Work Phone: 01-18-2017 14:48-0400 BP Diastolic 84 mm[Hg] Get Christianson DO [facility] Work Phone: 01-18-2017 14:48-0400 BP Systolic 126 mm[Hg] Get Brown DO [facility] Work Phone: 01-18-2017 14:48-0400 Height 167.64 cm Get Brown DO [facility] Work Phone: 01-18-2017 14:48-0400 Pulse (Heart Rate) 84 /min Get Christianson DO [facility] Work Phone: 01-18-2017 14:48-0400 Respiratory Rate 18 /min Get Christianson DO [facility] Work Phone: 01-18-2017 14:48-0400 Weight 132.45 kg Get Christianson DO [facility] Work Phone: 01-02-2017 06:51-0400 BMI (Body Mass Index) 48.58 kg/m2 Alba Dukes [employer] [facility] Work Phone: 01-02-2017 06:51-0400 Body Temperature 97.3 [degF] Alba Dukes [employer] [facility] Work Phone: 01-02-2017 06:51-0400 BP Diastolic 87 mm[Hg] Alba Dukes [employer] EM[employer] [facility] Work Phone: 01-02-2017 06:51-0400 BP Systolic 130 mm[Hg] Alba Dukes [employer]NA[employer] EM[employer] [facility] Work Phone: 01-02-2017 06:51-0400 Height 167.64 cm Alab Dukes [employer]NAGER EM[employer]MENT [facility] Work Phone: 01-02-2017 06:51-0400 Inhaled O2 3 Alba Dukes [employer]NA[employer] EM[employer] [facility] Work Phone: 01-02-2017 06:51-0400 Pulse (Heart Rate) 70 /min Alba Dukes [employer]NA[employer] EM[employer]MENT [facility] Work Phone: 01-02-2017 06:51-0400 Pulse Oximetry 96 % Alba Dukes [employer]NA[employer] EM[employer]MENT [facility] Work Phone: 01-02-2017 06:51-0400 Respiratory Rate 20 /min Alba Roseline [employer]NAGER EM[employer]MENT [facility] Work Phone: 01-02-2017 06:51-0400 Weight 136.53 kg Alba Dukes [employer]NA[employer] EM[employer] [facility] Work Phone: 10-19-2016 14:15-0400 BMI (Body Mass Index) 45.83 kg/m2 Alba Dukes [employer]NAGER EM[employer] [facility] Work Phone: 10-19-2016 14:15-0400 Body Temperature 98.1 [degF] Alba Dukes MANAGER [employer]MENT [facility] [employer] Work Phone: 10-19-2016 14:15-0400 BP Diastolic 92 mm[Hg] Alba Dukes MANAGER EM[employer]MENT [facility] [employer] Work Phone: 10-19-2016 14:15-0400 BP Systolic 141 mm[Hg] Alba Dukes MANAGER EMPL[employer]MENT [facility] [employer] Work Phone: 10-19-2016 14:15-0400 Height 167.64 cm Alba Dukes MANAGER EMPL[employer]MENT [facility] [employer] Work Phone: 10-19-2016 14:15-0400 Inhaled O2 3 Alba Dukes MANAGER EMPL[employer]MENT [facility] [employer] Work Phone: 10-19-2016 14:15-0400 Pulse (Heart Rate) 103 /min Alba Dukes MANAGER EMPLOYMENT [facility] [employer] Work Phone: 10-19-2016 14:15-0400 Pulse Oximetry 97 % Alba Dukes MANAGER EMPL[employer]MENT [facility] [employer] Work Phone: 10-19-2016 14:15-0400 Respiratory Rate 18 /min Alba Dukes MANAGER EMPL[employer]MENT [facility] [employer] Work Phone: 10-19-2016 14:15-0400 Weight 128.82 kg Alba Dukes MANAGER EMPLOYMENT [facility] [employer] Work Phone: Encounters Encounter Date Encounter Type Care Provider Facility Start: 01-14-2025 Non-patient / Non-visit Dr. Ysabel Ruffin MD -[facility] Start: 01-14-[address] Ysabel larson MD Work Phone: [facility] Work Phone: Start: 01-08-2025 End: 01-08-[address] Ysabel Ruffin MD Work Phone: [facility] Work Phone: Start: 01-08-2025 End: 01-08-[address] Ysabel Ruffin MD -Ultrasound [facility] Work Phone: Start: 01-08-2025 End: 01-08-[address] Chapincito Castro MD -[facility] Work Phone: Start: 01-08-2025 End: 01-08-[address] Ysabel Ruffin MD Work Phone: [facility] Work Phone: Start: 01-08-2025 End: 01-08-2025 ambulatory Ysabel Ruffin Facility:[facility] Start: 12-29-2024 End: 12-29-[address] Ysabel Ruffin MD -[facility] Work Phone: Start: 12-29-2024 End: 12-29-[address] Ysabel Ruffin MD Work Phone: [facility] Work Phone: Start: 12-29-2024 End: 12-29-2024 ambulatory Ysabel Ruffin Facility:[facility] Start: 11-20-2024 End: 11-20-2024 Dr. [facility] Start: 11-20-2024 End: 11-20-2024 Emergency department patient visit Dr. Callum Knutson MD -Emergency Department Work Phone: Start: 11-14-2024 End: 11-14-2024 Patient encounter procedure Oli NdiayeCat Scan [facility] Work Phone: Start: 11-14-2024 End: 11-14-2024 Oli NdiayeCat Scan, [facility] Work Phone: Start: 11-14-2024 End: 11-14-2024 Patient encounter procedure Oli HART -[facility] Work Phone: Start: 11-14-2024 End: 11-14-[address] [facility] Work Phone: Start: 11-14-2024 End: 11-14-2024 ambulatory Ysabel Laly Facility:[facility] Start: 11-14-2024 End: 11-14-2024 ambulatory Ysabel Laly Facility:[facility] Start: 09-01-2024 End: 09-01-[address] Luke Tirado MD -Laboratory [place] Work Phone: Start: 09-01-2024 End: 09-01-2024 Dr. Luke Tirado MD -Laboratory, [place] Work Phone: Start: 09-01-2024 End: 09-01-2024 ambulatory Ysabel Rose Facility:[facility] Start: 08-28-2024 End: 08-28-[address] [facility] Work Phone: Start: 08-28-2024 End: 08-28-2024 ambulatory Ysabel Rose Facility:[facility] Start: 08-15-2024 Dr. Alexander Ye MD - [facility] Work Phone: Start: 08-14-2024 Dr. Alexander Ye MD - [facility] Work Phone: Start: 08-13-2024 ambulatory Ysabel Laly Facility :[facility] Start: 08-13-2024 Dr. Nikc Romano MD -[facility] Work Phone: Start: 08-12-2024 ambulatory Ysabel Laly Facility :[facility] Start: 08-12-2024 End: 08-15-2024 Evaluation and management of inpatient Ysabel Rose Facility:[facility] Start: 08-12-2024 End: 08-15-2024 Dr. Alexander Ye MD -[facility] Work Phone: Start: 08-05-2024 ambulatory Ysabel Rose Facility :[facility] Start: 07-26-2024 End: 07-26-2024 Letter encounter Imani Geiger MD Work Phone: [facility] Start: 07-21-2024 End: 07-21-2024 ambulatory Ysabel Rose Facility:[facility] Start: 06-26-2024 End: 06-26-2024 ambulatory Ysabel Rose Facility:[facility] Start: 06-23-2024 ambulatory Ysabel Laly [facility] Start: 06-22-2024 End: 06-23-2024 [facility] Start: 04-28-2024 ambulatory Ysabel Laly Facility :[facility] Start: 03-17-2024 End: 03-17-2024 ambulatory Ysabel Laly Facility:[facility] Start: 01-07-2024 ambulatory Demario Martinez RN [facility] Comment on above: Community Monitoring Outreach Start: 11-16-2023 ambulatory Demario Martinez RN [facility] Comment on above: Community Monitoring Outreach Start: 11-02-2023 Documentation procedure Mammography Coordinator [facility] Start: 11-02-2023 Letter encounter Mammography Coordinator [facility] Start: 11-01-2023 End: 11-01-2023 ambulatory LORIE MONTANEZ Facility:[facility] Start: 11-01-2023 End: 11-01-2023 [facility] Start: 11-01-2023 End: 11-01-2023 Subsequent hospital visit by physician Screen Mammo [facility] Mammogram Start: 10-15-2023 ambulatory Demario Martinez RN [facility] Management Comment on above: Community Monitoring Outreach Start: 10-13-2023 ambulatory Andria estrella LPN [facility] Start: 09-13-2023 ambulatory Demario Martinez RN [facility] Management Comment on above: Community Monitoring Outreach Start: 07-02-2023 End: 07-03-2023 Emergency department patient visit Dr. Marilee Yu [facility]-Emergency Department Work Phone: Start: 07-02-2023 End: 07-02-[address] Marilee Yu [facility] Work Phone: Start: 05-24-2023 ambulatory Demario Martinez RN [facility] Management Comment on above: Community Monitoring Outreach Start: 02-22-2023 ambulatory Demario Martinez RN [facility] Management Comment on above: Community Monitoring Outreach Start: 02-07-2023 End: 02-08-2023 Emergency department patient visit [facility]-Emergency Department Work Phone: Start: 02-05-2023 End: 02-05-2023 ambulatory [facility] Work Phone: Start: 02-05-2023 End: 02-05-2023 Patient encounter procedure [facility]-Laboratory, Specimen Work Phone: Start: 08-09-2022 ambulatory [facility] Start: 08-09-2022 End: 08-09-2022 Telemedicine consultation with patient Tom Montelongo MD Work Phone: [facility] Psychiatry Comment on above: NO SHOW (Primary Dx) Start: 07-24-2022 Refill Alvarez crow MD Work Phone: [facility] Comment on above: Refill Request Start: 06-27-2022 Refill Alvarez crow MD Work Phone: [facility] Comment on above: Refill Request Start: 06-21-2022 ambulatory UNKNOWN PROVIDER Facili [facility] Start: 06-06-2022 End: 06-06-2022 Evaluation and management of inpatient Dr. Alvarez Montanez Work Phone: [facility]-Progressive Care Unit Start: 06-06-2022 Non-patient / Non-visit Dr. Alvarez Montanez Work Phone: [facility] Start: 06-06-[address] Melissa Montanez Work Phone: [facility] Work Phone: Start: 06-05-2022 End: 06-05-[address] Alvarez Montanez Work Phone: [facility] Work Phone: Start: 06-05-2022 End: 06-05-[address] Alvarez Montanez Work Phone: [facility] Start: 05-24-2022 Refill Alvarez crow MD Work Phone: [facility] Comment on above: Refill Request Start: 05-10-2022 End: 05-10-2022 Phys/qhp telephone evaluation 11-20 min Tom Montelongo MD Work Phone: [facility] Psychiatry Comment on above: Anxiety; Major depressive disorder, recurrent episode with anxious distress (HCC) Start: 05-10-2022 End: 05-10-2022 Telemedicine consultation with patient Tom Montelongo MD Work Phone: [facility] Psychiatry Comment on above: Anxiety; Major depressive disorder, recurrent episode with anxious distress (HCC) Start: 05-01-[address] [facility] Start: 05-01-2022 End: 05-01-[address] Alvarez Montanez Work Phone: [facility]-Laboratory, Specimen Start: 04-24-2022 Letter encounter Imani avila MD Work Phone: [facility] Start: 04-01-2022 End: 04-01-2022 Emergency department patient visit Dr. Alvarez Montanez Work Phone: [facility]-Emergency Department Start: 03-30-2022 Refill Judy shah DO Work Phone: [facility] Family Medicine Comment on above: Refill Start: 03-19-2022 End: 03-19-2022 Emergency department patient visit Dr. Alvarez Montanez Work Phone: [facility]-Emergency Department Start: 03-16-2022 Non-patient / Non-visit Dr. Alvarez Montanez Work Phone: [facility] Start: 03-15-2022 End: 03-15-2022 Emergency department patient visit Dr. Alvarez Montanez [facility] Start: 03-15-2022 End: 03-15-[address] Alvarez Montanez Work Phone: [facility] Start: 03-13-2022 Refill Judy shah DO Work Phone: [facility] Comment on above: Refill Start: 03-13-2022 Telephone encounter Alvarez briscoe MD Work Phone: [facility] Comment on above: Palliative Care Start: 03-06-2022 End: 03-06-2022 Emergency department patient visit Dr. Alvarez Montanez [facility] Start: 02-20-2022 Documentation procedure Mammography Coordinator [facility] Start: 02-20-2022 Letter encounter Mammography Coordinator [facility] Start: 02-20-2022 End: 02-20-2022 Patient encounter procedure Alvarez Montanez MD Work Phone: [facility] Comment on above: Left leg pain (Prima ry Dx); History of DVT of lower extremity; Anemia, unspecified type; Chronic pain syndrome; History of pulmonary embolism Start: 02-20-2022 End: 02-20-2022 Subsequent hospital visit by physician Screen Mammo [facility] Mammogram Comment on above: Obesity, Class III, BMI 40-49.9 (morbid obesity) ([facility]) [E66.01] Start: 02-16-2022 Telephone encounter Alvarez briscoe MD Work Phone: [facility] Comment on above: Results Start: 02-12-2022 End: 02-12-2022 Emergency department patient visit Dr. Alvarez Montanez Work Phone: [facility]-Emergency Department Start: 02-08-2022 End: 02-08-2022 Phys/qhp telephone evaluation 21-30 min Tom Montelongo MD Work Phone: [facility] Psychiatry Comment on above: Major depressive dis order, recurrent episode with anxious distress (HCC) (Primary Dx); Anxiety; Panic disorder with agoraphobia; Bereavement Start: 02-08-2022 ambulatory UNKNOWN PROVIDER Facili ty:[facility] Start: 01-30-2022 End: 01-30-2022 Patient encounter procedure Alvarez Montanez MD Work Phone: [facility] Comment on above: Closed head injury, sequela (Primary Dx); Concussion without loss of consciousness, sequela (HCC); Anemia due to blood loss; Arvind-Christine syndrome with action induced myoclonus; Failure to thrive in adult; Falls frequently; Epistaxis; Chronic pain syndrome; Chronic respiratory failure with hypoxia (HCC) Start: 01-24-2022 Patient Outreach Alvarez diehl MD Work Phone: [facility] Comment on above: Transition Of Care Start: 01-19-2022 Non-patient / Non-visit Dr. Alvarez Montanez Work Phone: [facility] Inpatient Physicians Start: 01-18-2022 Telephone encounter Alvarez briscoe MD Work Phone: [facility] Comment on above: Refill Request Start: 01-18-2022 End: 01-19-2022 Evaluation and management of inpatient Dr. Alvarez Montanez Work Phone: [facility]-Progressive Care Unit Start: 01-16-2022 ambulatory Juan Marti RN Am bulatory Care Management Comment on above: Community Monitoring Outreach (COPD CDM Enrollment ) Start: 01-15-2022 End: 01-15-2022 Emergency department patient visit Dr. Alvarez Montanez Work Phone: [facility]-Emergency Department Start: 01-11-2022 Refill Judy shah DO Work Phone: [facility] Family Medicine Comment on above: Refill Start: 01-10-2022 End: 01-10-2022 Emergency department patient visit Dr. Alvarez Montanez [facility] Start: 12-26-2021 ambulatory Juan Marti RN Am bulatory Care Management Comment on above: Community Monitoring Outreach ([facility] ED UTI / CDM Outreach) Start: 12-14-2021 End: 12-14-2021 Emergency department patient visit Dr. Alvarez Montanez [facility] Start: 12-12-2021 End: 12-12-[address] Alvarez Montanez Work Phone: [facility] Start: 11-23-2021 ambulatory Juan Marti RN Am bulatory Care Management Comment on above: Community Monitoring Outreach (COPD CDM Outreach) Start: 11-03-2021 End: 11-03-2021 Emergency department patient visit Dr. Alvarez Montanez [facility] Start: 11-02-2021 ambulatory UNKNOWN PROVIDER Facili ty:[facility] Start: 10-31-2021 End: 10-31-[address] Alvarez Montanez Work Phone: [facility] Start: 10-26-2021 End: 10-26-2021 Subsequent hospital visit by physician [facility] (I-Stat) Work Phone: [facility] Comment on above: Gross hematuria [R31 .0] Start: 10-26-2021 Telephone encounter Chilo graves PA-C Work Phone: Urology Comment on above: Results Start: 10-26-2021 End: 10-26-[address] Alvarez Montanez Work Phone: [facility] Start: 10-24-2021 Refill Alvarez crow MD Work Phone: [facility] Comment on above: Refill Request Start: 10-18-2021 Telephone encounter Ronal Pereyra MD Work Phone: [facility] Comment on above: Appointment Start: 10-18-2021 End: 10-18-2021 Patient encounter procedure Chilo Matthew PA-C Work Phone: Urology Comment on above: Gross hematuria (Kinza deion Dx); Recurrent UTI Start: 10-17-2021 End: 10-17-[address] Alvarez Montanez Work Phone: [facility] Start: 10-13-2021 Telephone encounter Alvarez briscoe MD Work Phone: [facility] Comment on above: FYI: Discharged toda y Start: 10-10-2021 End: 10-10-[address] Alvarez Montanez Work Phone: [facility]-Laboratory Start: 10-10-2021 End: 10-10-[address] Alvarez Montanez Work Phone: [facility] Start: 09-22-2021 End: 09-22-2021 Emergency department patient visit Dr. Alvarez Montanez Work Phone: [facility]-Emergency Department Start: 09-22-2021 End: 09-22-[address] Alvarez Montanez Work Phone: [facility] Start: 09-15-2021 End: 09-15-[address] Alvarez Montanez Work Phone: [facility]-Laboratory Start: 09-15-2021 End: 09-15-[address] Alvarez Montanez Work Phone: [facility] Start: 08-31-2021 Non-patient / Non-visit Dr. Alvarez Montanez Work Phone: [phone] [place] [address] Inpatient Physicians Start: 08-30-2021 Non-patient / Non-visit Dr. Alvarez Montanez Work Phone: [facility] Inpatient Physicians Start: 08-29-2021 Non-patient / Non-visit Dr. Alvarez Montanez Work Phone: [facility] Start: 08-29-2021 Non-patient / Non-visit Dr. Alvarez Montanez Work Phone: [facility] Inpatient Physicians Start: 08-28-2021 Non-patient / Non-visit Dr. Alvarez Montanez Work Phone: [facility] Start: 08-28-2021 Non-patient / Non-visit Dr. Alvarez Montanez Work Phone: [phone] [place] [address] Inpatient Physicians Start: 08-27-2021 Non-patient / Non-visit Dr. Alvarez Montanez Work Phone: [facility] Inpatient Physicians Start: 08-27-2021 Non-patient / Non-visit Dr. Alvarez Montanez Work Phone: [facility] Start: 08-26-2021 Non-patient / Non-visit Dr. Alvarez Montanez Work Phone: [facility] Inpatient Physicians Start: 08-26-2021 End: 08-31-2021 Evaluation and management of inpatient Dr. Alvarez Montanez Work Phone: [facility]-Medical Surgical 3 Start: 08-18-2021 End: 08-18-2021 Emergency department patient visit Dr. Alvarez Montanez Work Phone: [facility]-Emergency Department Start: 07-22-2021 End: 07-22-2021 Emergency department patient visit Dr. Alvarez Montanez Work Phone: [facility]-Emergency Department Start: 06-22-2021 Telephone encounter Alvarez briscoe MD Work Phone: [facility] [place] Comment on above: Patient Update Start: 03-14-2017 End: 03-14-2017 Ambulatory [facility] Procedures Date Procedure Procedure Detail Performing Clinician Start: 01-08-2025 Complete ultrasound of kidneys and bladder Dr. Ysabel Ruffin MD Work Phone: Start: 12-29-[address] Ysabel Ruffin MD Work Phone: Start: 12-29-[address] Ysabel Ruffin MD Work Phone: Comment on above: No monoclonality detected.Performed at: [place] [id number] Director: Eliseo Yañez PhD, Phone: [phone] Start: 12-29-2024 Urnls dip stick/tablet reagent auto microscopy Dr. Ysabel Ruffin MD Work Phone: Start: 12-29-2024 Vitamin D, 25-hydroxy measurement Dr. Harshal BATISTA Work Phone: Comment on above: Vitamin D StatusDeficiency: <20 ng/mL (5 0nmol/L)Insufficiency: 20-30 ng/mL (50-75 nmol/L)Sufficiency: 30-100 ng/mL (75-250 nmol/L)Toxicity: >100 ng/mL (>250 nmol/L) Start: 11-20-2024 Plain x-ray of hand Dr. Ysabel Ruffin MD Work Phone: Start: 11-20-2024 Plain x-ray of wrist Dr. Ysabel Ruffin MD Work Phone: Start: 11-14-2024 Blood count smear mcrscp w/mnl difrntl wbc count Dr. Ysabel Ruffin MD Work Phone: Start: 11-14-2024 Mean corpuscular hemoglobin concentration determination Dr. Ysabel Ruffin MD Work Phone: Start: 11-14-2024 Nucleated red blood cell count procedure Dr. Ysabel Ruffin MD Work Phone: Start: 11-14-2024 Platelet mean volume determination Dr. Ysabel Ruffin MD Work Phone: Start: 11-14-2024 CT of head without contrast Dr. Ysabel Ruffin MD Work Phone: Start: 09-01-2024 Urine microscopy: red cells Dr. Ysabel Ruffin MD Work Phone: Start: 09-01-2024 Urnls dip stick/tablet reagent auto microscopy Dr. Ysabel Ruffin MD Work Phone: Start: 09-01-[address] Ysabel Ruffin MD Work Phone: Start: 08-15-[address] Ysabel Ruffin MD Work Phone: Start: 08-15-2024 Blood count smear mcrscp w/mnl difrntl wbc count Dr. Ysabel Ruffin MD Work Phone: Start: 08-15-2024 BUN/Creatinine ratio Dr. Ysabel Ruffin MD Work Phone: Start: 08-15-[address] Rogelio Ruffin MD Work Phone: Start: 08-15-2024 Mean corpuscular hemoglobin concentration determination Dr. Ysabel Ruffin MD Work Phone: Start: 08-15-2024 Measurement of renal function Dr. Ysabel Ruffin MD Work Phone: Start: 08-15-2024 Nucleated red blood cell count procedure Dr. Ysabel Ruffin MD Work Phone: Start: 08-15-2024 Platelet mean volume determination Dr. Ysabel Ruffin MD Work Phone: Start: 08-13-2024 Dr. Ysabel Ruffin MD Work Phone: Start: 08-13-2024 Albumin/Globulin ratio Dr. Ysabel Ruffin MD Work Phone: Start: 08-12-2024 Urine microscopy: red cells Dr. Ysabel Ruffin MD Work Phone: Start: 08-12-2024 Urnls dip stick/tablet reagent auto microscopy Dr. Ysabel Ruffin MD Work Phone: Start: 08-12-2024 CT cervical spine without contrast Dr. Ysabel Ruffin MD Work Phone: Start: 08-12-2024 CT of head without contrast Dr. Ysabel Ruffin MD Work Phone: Start: 08-12-2024 CT of thorax, abdomen and pelvis with contrast Dr. Ysabel Ruffin MD Work Phone: Start: 08-12-2024 Calculation of international normalized ratio Dr. Ysabel Ruffin MD Work Phone: Start: 08-12-2024 Plain x-ray of hand Dr. Ysabel Ruffin MD Work Phone: Start: 07-02-2023 CT of abdomen and pelvis without contrast Dr. Marilee Yu Start: 02-07-2023 Plain x-ray of pelvis and lower extremity Start: 02-07-2023 CT cervical spine without contrast Start: 02-07-2023 CT of head without contrast Start: 06-06-2022 CT of abdomen and pelvis without contrast Dr. Alvarez Montanez Work Phone: Start: 04-01-2022 Plain chest X-ray Dr. Alvarez Montanez Work Phone: Start: 04-01-2022 CT of head without contrast Dr. Alvarez Montanez Work Phone: Start: 03-19-2022 CT cervical spine without contrast Dr. Alvarez Montanez Work Phone: Start: 03-19-2022 CT of head without contrast Dr. Alvarez Montanez Work Phone: Start: 03-15-2022 Plain X-ray of shoulder Dr. Alvarez Montanez Work Phone: Start: 03-15-2022 CT cervical spine without contrast Dr. Alvarez Montanez Work Phone: Start: 03-15-2022 CT of head without contrast Dr. Alvarez Montanez Work Phone: Start: 02-20-2022 End: 02-20-2022 Mammography Isela Black MD Work Phone: Start: 02-12-2022 Plain X-ray of shoulder Dr. Alvarez Montanez Work Phone: Start: 02-12-2022 X-ray of lumbar spine, two or three views Dr. Alvarez Montanez Work Phone: Start: 02-12-2022 CT of head without contrast Dr. Alvarez Montanez Work Phone: Start: 01-17-2022 CT of head without contrast Dr. Alvarez Montanez Work Phone: Start: 01-15-2022 Plain x-ray of pelvis and lower extremity Dr. Alvarez Montanez Work Phone: Start: 01-15-2022 CT cervical spine without contrast Dr. Alvarez Montanez Work Phone: Start: 01-15-2022 CT of head without contrast Dr. Alvarez Montanez Work Phone: Start: 01-15-2022 Plain X-ray of shoulder Dr. Alvarez Montanez Work Phone: Start: 01-10-2022 Plain chest X-ray Dr. Alvarez Montanez Work Phone: Start: 12-14-2021 CT of abdomen and pelvis without contrast Dr. Alvarez Montanez Work Phone: Start: 11-03-[address] Alvarez Montanez Work Phone: Start: 11-03-2021 CT of head without contrast Dr. Alvarez Montanez Work Phone: Start: 11-03-[address] Alvarez Montanez Work Phone: Start: 10-26-2021 Ct abdomen & pelvis w/o contrst 1/> body re Chilo Matthew PA-C Work Phone: Start: 10-17-[address] Alvarez Montanez Work Phone: Start: 10-17-[address] Alvarez Montanez Work Phone: Start: 09-22-2021 CT of abdomen and pelvis without contrast Dr. Alvarez Montanez Work Phone: Start: 08-30-2021 End: 08-30-2021 Colonoscopy Alvarez Montanez MD Work Phone: Start: 08-29-[address] Alvarez Montanez Work Phone: Start: 08-27-2021 Measurement of occult blood in stool specimen using immunoassay Dr. Alvarez Montanez Work Phone: Start: 08-26-2021 Bacteria identified in Blood by Culture Dr. Alvarez Montanez Work Phone: Start: 08-26-2021 SARS-CoV-2 Antigen (Rapid) Dr. Alvarez Montanez Work Phone: Start: 08-26-[address] Alvarez Montanez Work Phone: Start: 08-26-2021 Plain chest X-ray Dr. Alvarez Montanez Work Phone: Start: 08-18-2021 Plain x-ray of humerus Dr. Alvarez Montanez Work Phone: Start: 08-18-2021 Plain X-ray of shoulder Dr. Alvarez Montanez Work Phone: Start: 08-18-2021 CT Chest, Abd, Pel w/Contrast Dr. Alvarez Montanez Work Phone: Start: 07-22-2021 Plain x-ray of elbow Dr. Alvarez Montanez Work Phone: Start: 07-22-2021 Plain x-ray of wrist Dr. Alvarez Montanez Work Phone: Start: 07-22-2021 Plain x-ray of humerus Dr. Alvarez Montanez Work Phone: Start: 11-23-2020 Lipid 1996 panel - Serum or Plasma Demario Martinez RN Start: 11-23-2020 Mammography Alvarez Montanez MD Work Phone: Start: 05-09-2017 End: 05-09-2017 Dietary management education, guidance, and counseling Latoya Almonte LPN Start: 03-29-2017 End: 03-30-2017 DMB Carlota Gregorio CNP Work Phone: Start: 03-29-2017 End: 03-30-2017 Follow Up Appt 1 month Carlota Gregorio CNP Work Phone: Start: 03-29-2017 End: 03-30-2017 Pulmonary stress test/simple Carlota Gregorio ANIMAL SHELTER MANAGER Work Phone: Start: 03-29-2017 End: 03-29-2017 Dietary management education, guidance, and counseling Alba Cedeno Start: 01-18-2017 End: 01-18-2017 Dietary management education, guidance, and counseling Brianna Campo Start: 01-18-2017 End: 01-18-2017 Ecg routine ecg w/least 12 lds w/i&r Kee Bagley MD Start: 01-18-2017 End: 01-18-2017 Follow Up Appt 6 months Kee Bagley MD Start: 01-18-2017 End: 01-18-2017 PFM Kee Bagley MD Start: 01-18-2017 End: 01-18-2017 Electrocardiogram, complete Kee ellis MD Start: 01-18-2017 End: 01-18-2017 Follow Up Appt 6 months Kee Bagley MD Start: 01-18-2017 End: 01-18-2017 PFM Kee Bagley MD Start: 01-02-2017 End: 01-03-2017 Referral to property insurance agent Get Guillory O Work Phone: Start: 01-02-2017 End: 01-30-2017 Referral to property insurance agent [employer] Work Phone: Start: 11-10-2016 End: 12-15-2016 Pulmonary Function Test - complete Carlota Rachel Darline ANIMAL SHELTER MANAGER Work Phone: Start: 11-10-2016 End: 12-15-2016 Pulmonary Function Test - complete Carlota Gregorio ANIMAL SHELTER MANAGER Work Phone: Start: 10-27-2016 End: 12-15-2016 *MISC - Miscellaneous Lab Test #1 Ba Shea BOOM CAT OPERATOR Work Phone: Start: 10-27-2016 End: 12-15-2016 *MISC - Miscellaneous Lab Test #1 Ba Shea BOOM CAT OPERATOR Work Phone: Start: 10-19-2016 End: 04-06-2017 DMB Arin Shea BOOM CAT OPERATOR Work Phone: Start: 10-19-2016 End: 04-06-2017 Echo tthrc r-t 2d w/wom-mode compl spec&colr d Arin Shea BOOM CAT OPERATOR Work Phone: Start: 10-19-2016 End: 04-06-2017 Follow Up Appt 1 month Arin Shea BOOM CAT OPERATOR Work Phone: Start: 10-19-2016 End: 04-06-2017 Pulmonary stress test/simple Arin cardona BOOM CAT OPERATOR Work Phone: Start: 10-19-2016 End: 12-15-2016 Pulmonary stress test/simple Arin cardona BOOM CAT OPERATOR Work Phone: Bacteria identified in Blood by Culture Dr. Alvarez Montanez Work Phone: Bacteria identified in Urine by Culture Dr. Alvarez Montanez Work Phone: H/O: hysterectomy History of hysterectomy Dr. Alvarez Montanez Work Phone: History of appendectomy Hx of appendectom y Dr. Alvarez Montanez Work Phone: History of cholecystectomy Histo ry of cholecystectomy Dr. Alvarez Montanez Work Phone: SARS-CoV-2 & FLU Antigen (Rapid) Dr. Alvarez Montanez Work Phone: Urine culture Dr. Alvarez Montanez Work Phone: Plan of Treatment Date Care Activity Detail Author Start: 08-30-2031 Screening for malign ant neoplasm of colon [facility] Start: 08-30-2026 Colonoscopy COLONOSCOPY [facility] Start: 08-30-2026 COLORECTAL CANCER SCREENING COLORECTAL CANCER SCREENING [facility] Start: 08-30-2026 Screening for malign ant neoplasm of colon [facility] Start: 12-20-2025 Tetanus vaccination Tetanus (T d or Tdap) Booster [facility] Start: 12-20-2025 Urine microalbumin profile [facility] Start: 11-23-2025 Lipid 1996 panel - S elisha or Plasma Lipid Screening [facility] Start: 11-23-2025 Lipid panel [facility] Start: 11-23-2025 LIPID SCREEN LIPID SCREEN [facility] Start: 01-14-[address] [facility] [place] [place] [facility] Work Phone: Start: 12-29-2024 CBC W Auto Different ial panel - Blood [facility] Start: 12-29-2024 Comprehensive metabo lic 2000 panel - Serum or Plasma [facility] Start: 12-29-2024 Thyroid stimulating hormone measurement [facility] Start: 12-29-2024 Vitamin D, 25-hydrox y measurement [facility] Start: 11-20-2024 [facility] Start: 10-31-2024 Screening for malign ant neoplasm of breast Mammogram Screening [facility] Start: 08-22-2024 DIABETES SCREEN DIABETES SCREEN [facility] Start: 08-22-2024 Diabetes Screening Diabetes Screenin g [facility] Start: 08-15-2024 Patient discharge [facility] Start: 08-15-2024 Referral to service [facility] Start: 08-15-2024 Administration of bl ood product [facility] Start: 08-13-2024 Dual pressure sponta neous ventilation support [facility] Start: 08-13-2024 Following clinical p athway protocol [facility] Start: 08-13-2024 Assessment of risk o f venous thromboembolism [facility] Start: 08-13-2024 Continuous pulse oximetry [facility] Start: 08-13-2024 Fall prevention [facility] Start: 08-13-2024 Inhalation therapy procedure [facility] Start: 08-13-2024 Insertion of cathete r into peripheral vein [facility] Start: 08-13-2024 Introduction of urin claire catheter [facility] Start: 08-13-2024 Measuring intake and output [facility] Start: 08-13-2024 Oxygen therapy [facility] Start: 08-13-2024 Providing care accor ding to standard [facility] Start: 08-13-2024 Provision of activit y privileges [facility] Start: 08-13-2024 Referral to occupati onal therapist [facility] Start: 08-13-2024 Referral to service [facility] Start: 08-13-2024 [facility] Start: 08-12-2024 Admission procedure [facility] Start: 08-12-2024 Consultation [facility] Start: 05-12-2024 Cholesterol [Mass/vo lume] in Serum or Plasma Cholesterol [facility] Start: 03-23-2024 COVID-19 Vaccine ( season) COVID-19 Vaccine ( season) [facility] Start: 03-23-2024 Influenza vaccination Influenza Vacc ine (#1) [facility] Start: 07-02-2023 [facility] Start: 07-02-2023 Patient referral [facility] Work Phone: Start: 03-23-2023 Covid-19 Vaccine ( season) Covid-19 Vaccine () [facility] Start: 03-23-2023 Influenza vaccination [facility] Start: 02-20-2023 ANNUAL PCP TEAM CRM SOLUTION ARCHITECT RIZWAN DISEASE VISIT ANNUAL PCP TEAM CHRONIC DISEASE VISIT [facility] Start: 02-20-2023 BP CONTROLLED (<130/80) BP CON TROLLED (<130/80) [facility] Start: 02-20-2023 Mammography [facility] Start: 02-20-2023 Screening for malign ant neoplasm of breast [facility] Start: 01-30-2023 ANNUAL PCP TEAM CRM SOLUTION ARCHITECT RIZWAN DISEASE VISIT ANNUAL PCP TEAM CHRONIC DISEASE VISIT [facility] Start: 10-18-2022 BP CONTROLLED (<130/80) BP CON TROLLED (<130/80) [facility] Start: 08-27-2022 Measurement of occul t blood in single stool specimen FIT [facility] Start: 08-27-2022 Screening for malign ant neoplasm of colon FIT [facility] Start: 08-22-2022 ANNUAL PCP TEAM CRM SOLUTION ARCHITECT RIZWAN DISEASE VISIT ANNUAL PCP TEAM CHRONIC DISEASE VISIT [facility] Start: 08-22-2022 Basic metabolic 2000 panel - Serum or Plasma Basic Metabolic Panel [facility] Start: 08-22-2022 BP CONTROLLED (<130/80) BP CON TROLLED (<130/80) [facility] Start: 08-22-2022 Creatinine measurement Basic Metabol ic Panel [facility] Start: 08-09-2022 End: 08-09-2022 Telemedicine consultation with patient 08/09/2022 Telemedicine Psychiatry Tom Montelongo MD [address] [place] [address] [facility] Start: 06-06-2022 [facility] Work Phone: Start: 06-06-2022 Inhalation therapy procedure [facility] Work Phone: Start: 06-06-2022 End: 06-06-2022 [facility] Work Phone: Start: 06-06-2022 Referral to occupati onal therapist [facility] Work Phone: Start: 06-06-2022 Referral to service [facility] Work Phone: Start: 06-06-2022 Oxygen therapy [facility] Work Phone: Start: 06-06-2022 Following clinical p athway protocol [facility] Work Phone: Start: 06-06-2022 Ambulation without limitation [facility] Work Phone: Start: 06-06-2022 Assessment of risk o f venous thromboembolism [facility] Work Phone: Start: 06-06-2022 Insertion of cathete r into peripheral vein [facility] Work Phone: Start: 06-06-2022 Providing care accor ding to standard [facility] Work Phone: Start: 06-06-2022 End: 06-06-2022 Blood culture [facility] Work Phone: Start: 06-06-2022 Verification routine [facility] Work Phone: Start: 06-06-2022 Admission procedure [facility] Work Phone: Start: 06-06-2022 [facility] Work Phone: Start: 06-06-2022 Patient referral to dietitian [facility] Work Phone: Start: 06-05-2022 Assay of iron ASSAY OF IRON [facility] Work Phone: Start: 06-05-2022 Blood count complete auto&auto difrntl wbc COMPLETE CBC W/AUTO DIFF WBC [facility] Work Phone: Start: 06-05-2022 Collection venous bl ood venipuncture ROUTINE VENIPUNCTURE [facility] Work Phone: Start: 06-05-2022 Comprehensive metabo lic panel COMPREHEN METABOLIC PANEL [facility] Work Phone: Start: 06-05-2022 Iron binding capacity IRON BINDING T EST [facility] Work Phone: Start: 05-10-2022 End: 05-10-2022 Telemedicine consultation with patient 05/10/2022 Telemedicine Psychiatry Tom Montelongo MD [address] [place], [place] [id number] [facility] Start: 04-22-2022 Influenza vaccination Influenza Vacc ine (#1) [facility] Start: 04-01-2022 [facility] Work Phone: Start: 03-23-2022 Influenza vaccination INFLUENZA (#1) [facility] Start: 03-16-2022 Patient referral [facility] Work Phone: Start: 03-06-2022 Consultation [facility] Work Phone: Start: 02-24-2022 Screening for malign ant neoplasm of breast Mammography [facility] Start: 02-08-2022 End: 02-08-2022 Telemedicine consultation with patient 02/08/2022 Telemedicine Psychiatry Tom Montelongo MD [address] [place] [address] [facility] Start: 01-31-2022 End: 04-02-2022 CBC panel - Blood by Automated count CBC Lab Routine Anemia due to blood loss Expected: 01/31/2022, Expires: 04/02/2022 [facility] Work Phone: Comment on above: Expected: 01/31/2022 , Expires: 04/02/2022 Start: 01-19-2022 Patient discharge [facility] Work Phone: Start: 01-18-2022 End: 01-19-2022 [facility] Work Phone: Start: 01-18-2022 Dual pressure sponta neous ventilation support [facility] Work Phone: Start: 01-18-2022 Administration of bl ood product [facility] Work Phone: Start: 01-18-2022 Following clinical p athway protocol [facility] Work Phone: Start: 01-18-2022 Application of intermittent pneumatic compression device [facility] Work Phone: Start: 01-18-2022 Assessment of risk o f venous thromboembolism [facility] Work Phone: Start: 01-18-2022 Fall prevention [facility] Work Phone: Start: 01-18-2022 Incentive spirometry [facility] Work Phone: Start: 01-18-2022 Inhalation therapy procedure [facility] Work Phone: Start: 01-18-2022 Insertion of cathete r into peripheral vein [facility] Work Phone: Start: 01-18-2022 Introduction of urin claire catheter [facility] Work Phone: Start: 01-18-2022 Measuring intake and output [facility] Work Phone: Start: 01-18-2022 Oxygen therapy [facility] Work Phone: Start: 01-18-2022 Providing care accor ding to standard [facility] Work Phone: Start: 01-18-2022 Provision of activit y privileges [facility] Work Phone: Start: 01-18-2022 End: 01-18-2022 Referral to occupational therapist [facility] Work Phone: Start: 01-18-2022 End: 01-18-2022 Referral to service [facility] Work Phone: Start: 01-18-2022 Verification routine [facility] Work Phone: Start: 01-18-2022 Admission procedure [facility] Work Phone: Start: 01-15-2022 [facility] Work Phone: Start: 12-12-2021 Immunofixj electroph oresis other fluids IMMUNFIX E-PHORSIS/URINE/CSF [facility] Work Phone: Start: 11-23-2021 Hemoglobin A1c measurement Hemoglobi n A1C [facility] Start: 11-23-2021 Mammography MAMMOGRAM [facility] Start: 11-03-2021 Bacteria identified in Urine by Culture Urine Culture [facility] Work Phone: Start: 10-19-2021 End: 11-18-2022 Ct abdomen & pelvis w/o contrst 1/> body re CT UROGRAM WO/W IVCON Radiology Routine Gross hematuria Expected: 10/19/2021, Expires: 11/18/2022 [facility] Work Phone: Comment on above: Expected: 10/19/2021 , Expires: 11/18/2022 Start: 10-18-2021 End: 12-18-2021 Bacteria identified in Urine by Culture URINE CULTURE Microbiology Routine Gross hematuria Expected: 10/18/2021, Expires: 12/18/2021 [facility] Work Phone: Comment on above: Expected: 10/18/2021 , Expires: 12/18/2021 Start: 10-18-2021 End: 12-18-2021 CREATININE BLD CREATININE BLD Lab Routine Gross hematuria Expected: 10/18/2021, Expires: 12/18/2021 [facility] Work Phone: Comment on above: Expected: 10/18/2021 , Expires: 12/18/2021 Start: 09-22-2021 Catheterization of vein [facility] Work Phone: Start: 03-31-2021 COVID-19 Vaccine (3 - Booster for Pfizer series) COVID-19 Vaccine (3 - Booster for Pfizer series) [facility] Start: 03-22-2021 COVID-19 VACCINE (5 - Booster) COVID-19 VACCINE (5 - Booster) [facility] Start: 03-22-2021 COVID-19 VACCINE (5 - Pfizer series) COVID-19 VACCINE (5 - Pfizer series) [facility] Start: 12-24-2020 COVID-19 Vaccine (3 - Booster for Pfizer series) COVID-19 Vaccine (3 - Booster for Pfizer series) [facility] Start: 2020 Influenza vaccination LUNG CANCER SC REENING [facility] Start: 05-12-2020 Thyroid stimulating hormone measurement TSH [facility] Start: 08-08-2017 End: 08-08-2017 Appointment Appointment [facility] Work Phone: Start: 08-01-2017 End: 08-01-2017 Appointment Appointment [facility] Work Phone: Start: 05-09-2017 End: 05-09-2017 [facility] Work Phone: Start: 05-09-2017 End: 05-09-2017 [facility], [address], [place], [address] [facility] Work Phone: Start: 05-09-2017 End: 05-09-2017 Follow Up Appt 3 months Follow Up Appt 3 months [facility] Work Phone: Start: 05-09-2017 End: 05-09-2017 Pulmonary Function Test - complete Pulmonary Function Test - complete [facility] Work Phone: Start: 05-09-2017 End: 05-09-2017 Appointment Appointment [facility] Work Phone: Start: 04-11-2017 End: 04-11-2017 Appointment Appointment [facility] Work Phone: Start: 03-29-2017 End: 03-30-2017 DMB DMB [facility] Work Phone: Start: 03-29-2017 End: 03-30-2017 Follow Up Appt 1 month Follow Up Appt 1 month [facility] Work Phone: Start: 03-29-2017 End: 03-30-2017 Pulmonary stress test/simple Pulmonary stress testing; simple (eg, 6-minute walk) [facility] Work Phone: Start: 03-29-2017 End: 03-29-2017 Appointment [facility] Work Phone: Start: 03-29-2017 End: 03-29-2017 DMB DMB [facility] Work Phone: Start: 03-29-2017 End: 03-29-2017 Follow Up Appt 1 month Follow Up Appt 1 month [facility] Phone: Start: 03-29-2017 End: 03-29-2017 Pulmonary stress test/simple Pulmonary stress testing; simple (eg, 6-minute walk) [facility] Phone: Start: 01-18-2017 End: 01-18-2017 Appointment Appointment [facility] Phone: Start: 01-18-2017 End: 01-18-2017 24 hour holter monitor 24 hour holter monitor [facility] Phone: Start: 01-18-2017 End: 01-18-2017 Ecg routine ecg w/least 12 lds w/i&r EKG (In office) [facility] Phone: Start: 01-18-2017 End: 01-18-2017 Follow Up Appt 6 months Follow Up Appt 6 months [facility] Phone: Start: 01-18-2017 End: 01-18-2017 PFM PFM [facility] Phone: Start: 01-18-2017 End: 01-18-2017 24 hour holter monitor 24 hour holter monitor [facility] Phone: Start: 01-18-2017 End: 01-18-2017 Electrocardiogram, complete EKG (In office) [facility] Phone: Start: 01-18-2017 End: 01-18-2017 Follow Up Appt 6 months Follow Up Appt 6 months [facility] Phone: Start: 01-18-2017 End: 01-18-2017 PFM PFM [facility] Phone: Start: 01-02-2017 End: 01-02-2017 Cardiac Referral Cardiac Referral [address] [place] [address], [address], [place], [address] [facility] Work Phone: Start: 01-02-2017 End: 01-02-2017 [facility] Work Phone: Start: 01-02-2017 End: 01-02-2017 Follow Up Appt 3 months Follow Up Appt 3 months [facility] Work Phone: Start: 01-02-2017 End: 01-02-2017 Pulmonary stress test/simple Pulmonary stress testing; simple (eg, 6-minute walk) [facility] Work Phone: Start: 01-02-2017 End: 01-02-2017 Appointment Appointment [facility] Work Phone: Start: 01-02-2017 End: 01-12-2017 Cardiac Referral [facility] Work Phone: Start: 01-02-2017 End: 01-02-2017 [facility] Work Phone: Start: 01-02-2017 End: 01-02-2017 Follow Up Appt 3 months Follow Up Appt 3 months [facility] Work Phone: Start: 01-02-2017 End: 01-02-2017 Pulmonary stress test/simple Pulmonary stress testing; simple (eg, 6-minute walk) [facility] Work Phone: Start: 11-10-2016 End: 12-15-2016 Pulmonary Function Test - complete Pulmonary Function Test - complete [facility] Work Phone: Start: 11-10-2016 End: 12-15-2016 Pulmonary Function Test - complete Pulmonary Function Test - complete [facility] Work Phone: Start: 10-27-2016 End: 12-15-2016 *MISC - Miscellaneous Lab Test #1 *MISC - Miscellaneous Lab Test #1 [facility] Work Phone: Start: 10-27-2016 End: 12-15-2016 *MISC - Miscellaneous Lab Test #1 *MISC - Miscellaneous Lab Test #1 [facility] Phone: Start: 10-19-2016 End: 04-06-2017 ASHLEY RAMIREZ [facility] Phone: Start: 10-19-2016 End: 04-06-2017 Echo tthrc r-t 2d w/wom-mode compl spec&colr d Echo Complete with Color Flow [facility] Phone: Start: 10-19-2016 End: 04-06-2017 Follow Up Appt 1 month Follow Up Appt 1 month [facility] Phone: Start: 10-19-2016 End: 12-15-2016 Pulmonary stress test/simple Pulmonary stress testing; simple (eg, 6-minute walk) [facility] Phone: Start: 10-19-2016 End: 10-19-2016 ASHLEY RAMIREZ [facility] Phone: Start: 10-19-2016 End: 10-19-2016 Follow Up Appt 1 month Follow Up Appt 1 month [facility] Phone: Start: 10-19-2016 End: 12-15-2016 Pulmonary stress test/simple Pulmonary stress testing; simple (eg, 6-minute walk) [facility] Phone: Start: 10-19-2016 End: 10-19-2016 Tte w/doppler, complete Echo Complete with Color Flow [facility] Phone: Start: 03-11-2016 PNEUMOCOCCAL (2 - PCV) PNEUMOCOCCAL (2 - PCV) [facility] Start: 03-11-2016 Pneumococcal vaccination [facility] Start: 10-22-2015 Influenza vaccination LUNG CANCER DC KAYLA [facility] Start: 10-22-2015 Shingles (RZV) Vacci ne (1 of 2) Shingles (RZV) Vaccine (1 of 2) [facility] Start: 10-22-2015 SHINGRIX VACCINE (1 of 2) JEFFERS GRIX VACCINE (1 of 2) [facility] Start: 2010 COLOGUARD (FIT-DNA) COLOGUARD (FIT-D NA) [facility] Start: [address] COLONOGRAPHY [facility] Start: 2010 FECAL OCCULT BLOOD FECAL OCCULT BLOO D [facility] Start: 2010 Screening for malign ant neoplasm of colon [facility] Start: 2010 SIGMOIDOSCOPY SIGMOIDOSCOPY [facility] Start: 10-22-1995 Zoledronic acid therapy ALPHA- 1 ANTITRYPSIN DEFICIENCY SCREENING [facility] Start: 1984 Hepatitis A (HAV) Va ccine (optional start 19+ years) Hepatitis A (HAV) Vaccine (optional start 19+ years) [facility] Start: 1984 Hepatitis B vaccination Hepati tis B (HBV) Vaccine (1 of 3 - 19+ 3-dose series) [facility] Start: 1984 Hepatitis B Vaccine (1 of 3 - 19+ 3-dose series) Hepatitis B Vaccine (1 of 3 - 19+ 3-dose series) [facility] Start: 10-22-1983 BP CONTROLLED (<130/80) BP CON TROLLED (<130/80) [facility] Start: 10-22-1983 Hepatitis C screening Hepatitis C An tibody [facility] Start: 10-22-1983 HIV SCREENING HIV SCREENING [facility] Start: 10-22-1983 HIV screening HIV Screening [facility] Start: 10-22-1983 SPIROMETRY SPIROMETRY [facility] Start: 1965 HEPATITIS B (1 of 3 - 3-dose series) HEPATITIS B (1 of 3 - 3-dose series) [facility] Start: 1965 Hepatitis B Vaccine (1 of 3 - 3-dose series) Hepatitis B Vaccine (1 of 3 - 3-dose series) [facility] Alanine aminotransfe rase [Enzymatic activity/volume] in Serum or Plasma [facility] Albumin [Mass/volume ] in Serum or Plasma [facility] Alkaline phosphatase [Enzymatic activity/volume] in Serum or Plasma [facility] Anion gap in Serum o r Plasma [facility] Bacteria identified in Blood by Culture Blood Culture [facility] Work Phone: Bacteria identified in Urine by Culture Urine Culture [facility] Work Phone: Bilirubin, total measurement [facility] Blood ammonia measurement [facility] Blood culture [facility] Work Phone: BUN/Creatinine ratio [facility] Calcium [Mass/volume ] in Serum or Plasma [facility] Carbon dioxide, tota l [Moles/volume] in Central venous blood [facility] Comprehensive metabo lic 2000 panel - Serum or Plasma [facility] Creatinine [Mass/vol ume] in Serum or Plasma [facility] Cystourethroscopy CYSTO.PANENDO Procedures Routine Gross hematuria Ordered: 10/18/2021 [facility] Work Phone: Comment on above: Ordered: 10/18/2021 CYTOLOGY NON-SAFETY ENGINEER PRESSURE VESSELS CYTOLOGY NON-GY N Lab Routine Gross hematuria 10/18/2021 2:15 PM EDT [facility] Work Phone: End: 03-22-2023 Dup-scan xtr veins unilateral/limited study US DVT LOWER LT Radiology Routine Left leg pain 1 Occurrences starting 02/20/2022 until 03/22/2023 [facility] Work Phone: Comment on above: 1 Occurrences starti ng 02/20/2022 until 03/22/2023 DXA Bone [Mass/Area] Bone density [facility] Erythrocyte mean corpuscular volume determination [facility] Ferritin [Mass/volum e] in Serum or Plasma [facility] Work Phone: Glucose [Mass/volume ] in Serum or Plasma [facility] Hematocrit [Volume Fraction] of Blood [facility] Hemoglobin [Mass/vol ume] in Blood [facility] Inhalation bronchial challenge testing [facility] Iron [Mass/mass] in Unspecified specimen [facility] Work Phone: Iron and Iron bindin g capacity panel - Serum or Plasma [facility] Work Phone: Iron saturation [Mas s Fraction] in Serum or Plasma [facility] Work Phone: Leukocytes [#/volume ] in Blood [facility] Mean corpuscular hemoglobin concentration determination [facility] Mean corpuscular hemoglobin determination [facility] Measurement of renal function [facility] Measurement of substance [facility] MG Breast - bilatera l Screening [facility] Neutrophil count [facility] Neutrophil percent differential count [facility] Patient Education [facility] Work Phone: Patient referral [facility] Work Phone: Platelets [#/volume] in Blood [facility] POST VOID RESIDUAL POST VOID RES IDUAL Procedures Routine Recurrent UTI Ordered: 10/18/2021 [facility] Work Phone: Comment on above: Ordered: 10/18/2021 Potassium measurement [facility] Red blood cell count [facility] Red cell distributio n width determination [facility] Serum chloride measurement W [facility] Sodium measurement [facility] Total protein measurement [facility] Urea nitrogen [Mass/volume] in Serum or Plasma [facility] Urinalysis complete panel - Urine [facility] Urinalysis complete panel - Urine [facility] US Kidney - bilatera l and Urinary bladder [facility] Vitamin B12 measurement [facility] Work Phone: [facility] Immunizations Immunization Date Immunization Notes Care Provider [facility] 07-02-2023 influenza, injectabl e, quadrivalent, preservative free Dr. Marilee Yu [facility] 07-02-2023 influenza virus vaccine, unspecified formulation Imani Geiger MD Work Phone: [facility] 06-05-2022 influenza, injectabl e, quadrivalent, preservative free Dr. Marilee Yu [facility] 06-05-2022 influenza, seasonal, injectable Dr. Alvarez Montanez Work Phone: [facility] Work Phone: 05-12-2021 tuberculin skin test ; purified protein derivative solution, intradermal Judy Gomez DO Work Phone: [facility] 04-25-2021 influenza, injectabl e, quadrivalent, preservative free Dr. Marilee Altmanlynda [facility] 04-25-2021 influenza, seasonal, injectable Dr. Alvarez Montanez Work Phone: [facility] 04-25-2021 influenza, seasonal, injectable, preservative free Judy Gomez DO Work Phone: [facility] 04-25-2021 Seasonal, quadrivale nt, recombinant, injectable influenza vaccine, preservative free Dr. Hunt [facility] 04-25-2021 influenza virus vaccine, unspecified formulation Tom Montelongo MD Work Phone: [facility] 01-25-2021 Covid (Pfizer) Dr. Alvarez Montanez Work Phone: [facility] 01-04-2021 Covid (Pfizer) Dr. Alvarez Montanez Work Phone: [facility] 11-23-2020 Hemoglobin A1C Judy Arroyoamadou gonzalo DO Work Phone: [facility] 10-29-2020 COVID-19 vaccine, ag e 12+ yr (PFIZER-BIONTECH - PURPLE TOP) Alvarez Montanez MD Work Phone: [facility] Work Phone: 10-08-2020 COVID-19 vaccine, ag e 12+ yr (PFIZER-BIONTECH - PURPLE TOP) Alvarez Montanez MD Work Phone: [facility] Work Phone: 05-13-2019 influenza, injectabl e, quadrivalent, contains preservative Alvarez Montanez MD Work Phone: [facility] 05-13-2019 influenza, injectabl e, quadrivalent, preservative free Dr. Hunt [facility] 05-13-2019 influenza, seasonal, injectable Dr. Alvarez Montanez Work Phone: [facility] 05-06-2018 influenza, injectabl e, quadrivalent, contains preservative Alvarez Montanez MD Work Phone: [facility] Work Phone: 05-06-2018 influenza, injectabl e, quadrivalent, preservative free [facility] 05-06-2018 influenza, seasonal, injectable Dr. Alvarez Montanez Work Phone: [facility] 04-22-[address] Alvarez Montanez Work Phone: [facility] 04-22-2017 influenza, seasonal, injectable, preservative free Judy Gomez DO Work Phone: [facility] 04-02-2017 influenza, injectabl e, quadrivalent, contains preservative Alvarez Montanez MD Work Phone: [facility] 04-02-2017 influenza, injectabl e, quadrivalent, preservative free Dr. Hunt [facility] 04-02-2017 influenza, seasonal, injectable Dr. Alvarez Montanez Work Phone: [facility] 06-13-2016 influenza, injectabl e, quadrivalent, contains preservative Alvarez Montanez MD Work Phone: [facility] 06-13-2016 influenza, injectabl e, quadrivalent, preservative free Dr. Hunt [facility] 06-13-2016 influenza, seasonal, injectable Dr. Alvarez Montanez Work Phone: [facility] 05-23-[address] Alvarez Montanez Work Phone: [facility] 05-23-2016 influenza, seasonal, injectable, preservative free Judy Gomez DO Work Phone: [facility] 12-21-2015 tetanus and diphther ia toxoids, adsorbed, preservative free, for adult use (2 Lf of tetanus toxoid and 2 Lf of diphtheria toxoid) Dr. Alvarez Montanez Work Phone: [facility] 12-21-2015 tetanus and diphther ia toxoids, adsorbed, preservative free, for adult use (5 Lf of tetanus toxoid and 2 Lf of diphtheria toxoid) Alvarez Montanez MD Work Phone: [facility] 06-04-2015 influenza, injectabl e, quadrivalent, preservative free Judy Zgodinski DO Work Phone: [facility] 06-04-2015 influenza, seasonal, injectable Dr. Alvarez Montanez Work Phone: [facility] 03-28-2015 influenza, injectabl e, quadrivalent, preservative free Dr. Hunt [facility] 03-28-2015 influenza, seasonal, injectable Dr. Alvarez Montanez Work Phone: [facility] 03-28-2015 influenza, seasonal, injectable, preservative free Judy Zgodinski DO Work Phone: [facility] 03-28-2015 Seasonal, quadrivale nt, recombinant, injectable influenza vaccine, preservative free Dr. Hunt [facility] 03-11-2015 pneumococcal polysaccharide vaccine, 23 valent Alvarez Montanez MD Work Phone: [facility] Work Phone: 03-11-2015 tetanus toxoid, redu kelsey diphtheria toxoid, and acellular pertussis vaccine, adsorbed Alvarez Montanez MD Work Phone: [facility] Work Phone: 05-07-2014 influenza, seasonal, injectable, preservative free Judy Zgodinski DO Work Phone: [facility] 05-07-2014 pneumococcal polysaccharide vaccine, 23 valpetar Montanez MD Work Phone: [facility] 06-03-2013 influenza, seasonal, injectable, preservative free Judy Zgodinski DO Work Phone: [facility] 06-03-2013 pneumococcal polysaccharide vaccine, 23 valpetar Montanez MD Work Phone: [facility] 04-04-2012 pneumococcal polysaccharide vaccine, 23 valent Alvarez Montanez MD Work Phone: [facility] Payers Date Payer Category Payer Self-pay [id number] 2019 Medicaid MEDICAID [facility] MEDICAID [id number] 2019-Present [phone] [address] [place] [address] Medicaid [id number] 2019 Medicaid [id number] 2017 Medicaid [id number] 1965 Unknown [id number]..[id number] 1965 Unknown [id number] 2.840.1.557943.3.579.2.732 1965 Unknown [id number] 2..840.1.754708.3.579.2.732 1965 Unknown [id number] 2..840.1.684439.3.579.2.732 Unknown [id number] 2.16.840.1.983425.3.579.2.462 Unknown [id number] 2.16.840.1.469751.3.579.2.462 Unknown [id number] 2.16.840.1.704338.3.579.2.462 Unknown [id number] 2.16.840.1.565133.3.579.2.462 Unknown [id number] 2.16.840.1.017427.3.579.2.462 Unknown [id number] 2.16.840.1.233797.3.579.2.462 Unknown [id number] 2.16.840.1.934351.3.579.2.462 Unknown [id number] 2.16.840.1.928305.3.579.2.462 Unknown [id number] 2.16.840.1.399622.3.579.2.462 Unknown [id number] 2.16.840.1.209059.3.579.2.462 Unknown [id number] 2.16.840.1.047363.3.579.2.462 Unknown [id number] 2.16.840.1.967042.3.579.2.462 Unknown [id number] 2.16.840.1.531983.3.579.2.462 Unknown [id number] 2.16.840.1.264021.3.579.2.462 Unknown [id number] 2.840.1.007744.3.579.2.462 Unknown [id number] 2.16.840.1.956998.3.579.2.462 Unknown [id number] 2.16840.1.071717.3.579.2.462 Unknown [id number] 2.16.840.1.136834.3.579.2.462 Unknown [id number] 2.16.840.1.997285.3.579.2.462 Unknown [id number] 2.16.840.1.822032.3.579.2.462 Unknown [id number] 2.16.840.1.799670.3.579.2.462 Unknown [id number] 2.16.840.1.530021.3.579.2.462 Unknown [id number] 2.16.840.1.225338.3.579.2.462 Unknown [id number] 2.16.840.1.479470.3.579.2.462 Unknown [id number] 2.16.840.1.369824.3.579.2.462 Social History Date Type Detail Facility Start: 01-07-2021 End: 11-20-2024 Tobacco smoking status NHIS Ex-smoker [facility] End: 01-21-2016 History of tobacco use Current smoker [facility] End: 01-21-2016 History of tobacco use Cigarette Smoker [facility] Start: 01-29-2020 End: 01-07-2021 Cigarettes smoked current (pack per day) - Reported 1 [facility] Start: 04-30-2018 End: 01-07-2021 Tobacco use and exposure Smokeless tobacco non-user [facility] Start: 01-29-2020 End: 08-22-2021 Alcohol intake Current non-drinker of alcohol (finding) [facility] Start: 1965 Sex Assigned At Female [facility] Start: 10-01-2021 End: 02-20-2022 Exposure to SARS-CoV-2 (event) Not sure [facility] Start: 10-10-2021 End: 07-02-2023 Tobacco smoking status NHIS Unknown if ever smoked [facility] Start: 03-04-2018 None [facility] Start: 09-06-2019 Spouse/ Signif icant Other [facility] Start: 03-04-2018 Non-smoker [facility] Start: 01-01-2018 Tobacco Comment 1-2 cigarettes daily [facility] Start: 04-30-2018 Tobacco smoking stat us NJIS Light tobacco smoker [facility] Start: 1965 Sex Assigned At Not on file [facility] Start: 01-29-2020 End: 01-30-2022 Tobacco use panel [facility] Adult Depression Screening Assessment 0 [facility] Start: 01-29-2020 Gender identity Identifies as female gender (finding) [facility] (I/We) worried wheth er (my/our) food would run out before (I/we) got money to buy more. Never true [facility] Start: 01-25-2015 Sex Female (finding) [facility] Goals Date Patient Goal Desired Activity /State Personal health goal Comment on above: Formatting of this n ote might be different from the original. Prevent Falls, improve strength Personal health goal Personal health goal Comment on above: Formatting of this n ote might be different from the original. Patient has the following general goals: Two PCP visits annually Patient Stated goal: Prevent falls Patient will meet these goals by 05/26/23 (describe interventions done by PCC) Personal health goal Comment on above: Formatting of this n ote might be different from the original. This patient has the following Chronic Obstructive Pulmonary Disease Health Maintenance goals: Two PCP visits annually This patient has the following education goals: COPD [facility] Education - COPD About Patient will meet these goals by 09/13/24 (describe interventions done by PCC) Personal health goal Comment on above: Formatting of this n ote might be different from the original. Prevent Falls, improve strength Functional Status Date Assessment Result Facility 08-15-2024 Functional status Chair [facility] Work Phone: 06-06-2022 Functional status Activity Abili ty Unable to Assess [facility] Work Phone: 01-19-2022 Functional status Ambulates;Bathroom Priv ilege [facility] Work Phone: 08-31-2021 Functional status Assistive Maia sandra Rolling Walker [facility] Work Phone: 08-30-2021 Functional status Up ad carley;Bedside Commo de [facility] Work Phone: Mental Status Date Assessment Result Facility 08-15-2024 Cognitive function Voice/Name [facility] Work Phone: 07-02-2023 Cognitive function Level Of Cons ciousness Awake;Alert;Appropriate [facility] Work Phone: 06-06-2022 Cognitive function Voice/Name [facility] Work Phone: 06-05-2022 Cognitive function Level Of Cons ciousness Awake;Alert;Appropriate;Follow s Commands [facility] Work Phone: 03-15-2022 Cognitive function Level Of Cons ciousness Awake;Alert;Appropriate;Follow s Commands [facility] Work Phone: 01-19-2022 Cognitive function Voice/Name [facility] Work Phone: 01-17-2022 Cognitive function Level Of Cons ciousness Awake;Alert;Appropriate;Follow s Commands [facility] Work Phone: 01-10-2022 Cognitive function Level Of Cons ciousness Awake;Alert;Appropriate;Follow s Commands [facility] Work Phone: 11-03-2021 Cognitive function Voice/Name [facility] Work Phone: 08-30-2021 Cognitive function Voice/Name [facility] Work Phone: Clinical Notes 01-10-2021 to 01-09-2025 Note Date & Type Note Facility 01-09-2025 Radiology Diagnostic study note [facility] Imaging Services [address] [place], [place] [id number] Kidney and Bladder MR#: [id number] Acct: [id number] Name: FELISHA PERRIN Rep #: [id number] F 59 From: Cassidy Herndon MD PCP: Dr. Ysabel Ruffin MD Status: REG CLI Study:Kidney and Bladder Date of Exam: 0 01/08/25 Exam# [id number] Ordering Dr: Ysabel Ruffin MD PROCEDURE: KIDNEY AND BLADDER 01/08/2025 REASON FOR EXAM: HEMATURIA/FALL TECHNIQUE: KIDNEY AND BLADDER COMPARISON: 08/12/2024 FINDINGS: Right kidney measures 10.3 x 5.1 x 4.3 cm. Cortex measures 1.4 cm. Superior pole cyst measuring 2.4 x 1.9 x 1.8 cm is noted. No hydronephrosis. No stones. Left kidney measures 12.5 x 5.5 x 5.7 cm. Cortex measures 1.9 cm. Medial pole cyst measuring 3.6 x 3.1 x 2.8 cm is noted. Urinary bladder distended volume is 19.7 cc. Wall measures 6 mm. Urinary bladder is under distended. Jets are not visualized US/Kidney and Bladder IMPRESSION: Bilateral renal simple cysts. No interval changes Under filled urinary bladder. Reading Location: [place] [address] CC: Dr. 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 2024 8:55am Falls frequently inactive December 8:55am History of blood clots noneactive [facility] 2024 8:55am Hematuria noneactive December 29, 2024 8:55am Chronic pain noneactive December 29 8:55am Essential hypertension noneactive [facility] 2024 8:55am Prediabetes noneactive December 29 8:55am Chronic anemia noneactive December 29, 2024 8:55am Iron deficiency noneactive December 29, 2024 8:55am [facility] Work Phone: 1(921) 876-607901-24-2025 [facility]01-22-2025 Evaluation note* Diagnosis Onset Date Resolution Status Admit Date Complicated laceration of hand acute August 12 11:51pm Parkinson's disease acute 2024 11:51pm Syncope resolved August 12, 2024 11:51pm TIA (transient ischemic attack) resolved August 12 11:51pm Complicated laceration of hand acute August 28 3:19pm Head injury acute November 14, 025 7:21am Essential hypertension noneactive [facility] 2024 7:21am [facility] Work Phone: 1(134) 629-528212-02-2024 [facility]06-24-2024 NoteHNO ID: [id number] Author: DEMARIO MARTINEZ RN Service: ? Author Type: Registered Nurse Type: Progress Notes Filed: 01/16/2024 18:50 Note Text: CDM Telephonic Outreach Provider Action/FYI Pt noted she has changed to [facility] associated PCP , Pt is aware to contact PCP for any changes in symptyoms or needs. Contacted for: Routine Telephonic Outreach Contact made with patient: Yes Patient identified by name and date of . Discussed care with patient Demario Martinez RN January 14, 2024 6:15 [facility]06-24-2024 History of Present illness Narrative* Demario Martinez RN - 01/14/2024 6:15 PM EDT CDM Telephonic Outreach Provider Action/FYI Pt noted she has changed to [facility] associated PCP , Pt is aware to contact PCP for any changes in symptyoms or needs. Contacted for: Routine Telephonic Outreach Contact made with patient: Yes Patient identified by name and date of . Discussed care with patient Demario Martinez RN January 14, 2024 6:15 PM * Demario Martinez RN - 01/11/2024 1:31 PM EDT CDM Telephonic Outreach Provider Action/FYI CDM:COPD Call back to Pt as requested to verify current PCP, unable to leave a message. Contacted for: Engagement Contact made with patient: No, unable to leave message. Will reattempt call Demario Martinez RN January 11, 2024 1:31 PM * Demario Martinez RN - 01/07/2024 12:39 PM EDT CDM Telephonic Outreach Provider Action/FYI CDM:COPD Pt denies symptom changes, concerns or needs. Instructed on follow up with PCP/ specialist every 6 months, Pt noted she has an Appt coming up with a [facility] in [place], unsure who it is will contact her sister to get the name for PCC. SDH, Goals updated Contacted for: Engagement Contact made with patient: Yes Patient identified by name and date of . Discussed care with patient Outcomes: Patient forgot, reminder given Are you experiencing any new or worsening symptoms you need to talk about today? 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 Routed to: No Action Needed [facility] Education Provided this Outreach: No Demario Martinez RN January 07, 2024 12:51 PM [facility] NoteHNO ID: [id number] Author: DEMARIO MARTINEZ RN Service: ? Author Type: Registered Nurse Type: Progress Notes Filed: 01/16/2024 18:50 Note Text: CDM Telephonic Outreach Provider Action/FYI CDM:COPD Call back to Pt as requested to verify current PCP, unable to leave a message. Contacted for: Engagement Contact made with patient: No, unable to leave message. Will reattempt call Demario Martinez RN January 11, 2024 1:31 [facility]06-17-2024 NoteHNO ID: [id number] Author: DEMARIO MARTINEZ RN Service: ? Author Type: Registered Nurse Type: Progress Notes Filed: 01/16/2024 18:50 Note Text: CDM Telephonic Outreach Provider Action/FYI CDM:COPD Pt denies symptom changes, concerns or needs. Instructed on follow up with PCP/ specialist every 6 months, Pt noted she has an Appt coming up with a [facility] in [place], unsure who it is will contact her sister to get the name for PCC. SDH, Goals updated Contacted for: Engagement Contact made with patient: Yes Patient identified by name and date of . Discussed care with patient Outcomes: Patient forgot, reminder given Are you experiencing any new or worsening symptoms you need to talk about today? 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 Routed to: No Action Needed CURTIS Education Provided this Outreach: No Demario Martinez RN January 07, 2024 12:51 [facility]06-17-2024 NotePatient Outreach ([facility]) FELISHA PERRIN ([id number]) 1965 F Date Time Provider Department 01/07/24 DEMARIO MARTINEZ During your visit today, we recorded the following information about you: Demario Martinez RN 01/16/2024 6:50 PM Signed CDM Telephonic Outreach Provider Action/FYI CDM:COPD Pt denies symptom changes, concerns or needs. Instructed on follow up with PCP/ specialist every 6 months, Pt noted she has an Appt coming up with a [facility]ician in [place], unsure who it is will contact her sister to get the name for PCC. SDH, Goals updated Contacted for: Engagement Contact made with patient: Yes Patient identified by name and date of . Discussed care with patient Outcomes: Patient forgot, reminder given Are you experiencing any new or worsening symptoms you need to talk about today? 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 Routed to: No Action Needed CURTIS Education Provided this Outreach: No Demario Martinez RN January 07, 2024 12:51 PM Demario Martinez RN 01/16/2024 6:50 PM Signed CDM Telephonic Outreach Provider Action/FYI CDM:COPD Call back to Pt as requested to verify current PCP, unable to leave a message. Contacted for: Engagement Contact made with patient: No, unable to leave message. Will reattempt call Demario Martinez RN January 11, 2024 1:31 PM Demario Martinez RN 01/16/2024 6:50 PM Signed CDM Telephonic Outreach Provider Action/FYI Pt noted she has changed to [facility] associated PCP , Pt is aware to contact PCP for any changes in symptyoms or needs. Contacted for: Routine Telephonic Outreach Contact made with patient: Yes Patient identified by name and date of . Discussed care with patient Demario Martinez RN January 14, 2024 6:15 PM Allergies As of Date: 01/07/2024 Noted Allergy Reaction ASPIRIN 08/24/2013 7 - Swelling DEMEROL (MEPERIDINE (PF)) 06/26/2009 FISH 11/19/2012 7 - Swelling ONION 11/19/2012 10 - Anaphylaxis PEACH 11/19/2012 10 - Anaphylaxis PEANUT 11/19/2012 10 - Anaphylaxis PENICILLINS 06/26/2009 SHELLFISH 11/19/2012 10 - Anaphylaxis TORADOL (KETOROLAC TROMETHAMINE) 04/03/2012 4 - Hives ULTRAM (TRAMADOL) 06/26/2009 4 - Hives Comments: Swelling of tongue Date Reviewed: 02/20/2022 Reviewed by: Andria Butler LPN - Fully Assessed Reason for Visit: Community Monitoring Outreach [Other] Prescriptions as of 01/17/2024 - spironolactone (ALDACTONE) 50 mg tablet Take 1 tablet by mouth once daily. - metoprolol succinate ER (TOPROL XL) 100 mg Take 1 tablet by mouth once daily. - furosemide (LASIX) 20 mg tablet Take 1 tablet by mouth once daily. - losartan (COZAAR) 100 mg tablet Take 1 tablet by mouth once daily. - atorvastatin (LIPITOR) 80 mg tablet Take 1 tablet by mouth once daily. - omeprazole (PRILOSEC) 40 mg capsule Take 1 capsule by mouth once daily. - mometasone-formoterol (DULERA) 100-5 mcg/actuation inhaler Inhale 2 Puffs as instructed twice daily. - carbidopa-levodopa CR (SINEMET CR) 50-200 mg per tablet Take 1 tablet by mouth three times daily. From Neurologist. - LORazepam (ATIVAN) 0.5 mg From [facility]. - meloxicam (MOBIC) 7.5 mg tablet Take 7.5 mg by mouth once daily. - oxyCODONE-acetaminophen (PERCOCET) 5-325 mg tablet From [facility] - venlafaxine ER (EFFEXOR XR) 150 mg 24 hr capsule TAKE 1 CAPSULE BY MOUTH ONCE DAILY FOR DEPRESSION. DO NOT CHEW OR CRUSH - albuterol HFA (VENTOLIN HFA) 90 mcg/actuation inhaler INHALE 2 PUFFS BY MOUTH THREE TIMES A DAY NEEDED FOR SHORTNESS OF BREATH/WHEEZING/COUGH - ipratropium-albuterol (DUONEB) 0.5 mg-3 mg(2.5 mg base)/3 mL nebu INHALE 1 VIAL VIA NEBULIZER EVERY 4 HOURS NEEDED - apixaban (ELIQUIS) 5 mg tab(s) Take 1 tablet by mouth twice daily. - clonazePAM (KLONOPIN) 0.5 mg tablet Take 1 tablet by mouth twice daily. Per [facility]. - Mirtazapine (REMERON) 7.5 mg tablet Take 1 tablet by mouth daily at bedtime. Per [facility]. - acetaminophen (TYLENOL EXTRA STRENGTH) 500 mg tablet Take 1,000 mg by mouth every 8 hours as needed. - COMPOUNDED PRESCRIPTION PORTABLE OXYGEN VIA NASAL CANNULA. 2 LPM FOR USE WITH EXERTION, ACTIVITY. Dx:R09.02; J44.9; J98.4 Problem List As Of Date 01/07/2024 Noted Resolved Abdominal pain [R10.9] 04/03/2012 07/07/2015 UTI (urinary tract infection) [N39.0] 04/03/2012 12/21/2015 Stroke (HCC) [I63.9] 04/03/2012 12/21/2015 Obesity [E66.9] 04/03/2012 07/07/2015 HTN (hypertension) [I10] 04/03/2012 09/03/2018 Eating disorder, unspecified [F50.9] 10/10/2012 Morbid obesity (HCC) [E66.01] 09/03/2018 Hypothyroidism [E03.9] 09/03/2018 Unilateral emphysema (HCC) [J43.0] 12/21/2015 Hypertension [I10] 07/07/2015 GERD (gastroesophageal reflux disease) [K21.9] Anxiety [F41.9] Arthriti (more content not included)...[facility]04-26-2024 Note HNO ID: [id number] Author: DEMARIO MARTINEZ RN Service: ? Author Type: Registered Nurse Type: Progress Notes Filed: 11/16/2023 15:11 Note Text: CDM Telephonic Outreach Provider Action/FYI CDM:COPD Pt denies symptom or condition changes. My chart Home Monitoring questionnaire location / reminder provided. Pt verbalized understanding SDH, Goals updated Contacted for: Engagement Contact made with patient: Yes Patient identified by name and date of . Discussed care with patient Outcomes: Patient forgot, reminder given Are you experiencing any new or worsening symptoms you need to talk about today? 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 Routed to: No Action Needed CURTIS Education Provided this Outreach: No Demario Martinez RN November 16, 2023 3:03 [facility]04-26-2024 History of Present illness Narrative* Demario Martinez RN - 11/16/2023 3:00 PM EDT CDM Telephonic Outreach Provider Action/FYI CDM:COPD Pt denies symptom or condition changes. My chart Home Monitoring questionnaire location / reminder provided. Pt verbalized understanding SDH, Goals updated Contacted for: Engagement Contact made with patient: Yes Patient identified by name and date of . Discussed care with patient Outcomes: Patient forgot, reminder given Are you experiencing any new or worsening symptoms you need to talk about today? 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 Routed to: No Action Needed CURTIS Education Provided this Outreach: No Demario Martinez RN November 16, 2023 3:03 PM documented in [facility] NotePatient Outreach ([facility]) FELISHA PERRIN ([id number]) 1965 F Date Time Provider Department 11/16/23 DEMARIO MARTINEZ [facility] During your visit today, we recorded the following information about you: Demario Martinez RN 11/16/2023 3:11 PM Signed CDM Telephonic Outreach Provider Action/FYI CDM:COPD Pt denies symptom or condition changes. My chart Home Monitoring questionnaire location / reminder provided. Pt verbalized understanding SDH, Goals updated Contacted for: Engagement Contact made with patient: Yes Patient identified by name and date of . Discussed care with patient Outcomes: Patient forgot, reminder given Are you experiencing any new or worsening symptoms you need to talk about today? 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 Routed to: No Action Needed CURTIS Education Provided this Outreach: No Demario Martinez RN November 16, 2023 3:03 PM Allergies As of Date: 11/16/2023 Noted Allergy Reaction ASPIRIN 08/24/2013 7 - Swelling DEMEROL (MEPERIDINE (PF)) 06/26/2009 FISH 11/19/2012 7 - Swelling ONION 11/19/2012 10 - Anaphylaxis PEACH 11/19/2012 10 - Anaphylaxis PEANUT 11/19/2012 10 - Anaphylaxis PENICILLINS 06/26/2009 SHELLFISH 11/19/2012 10 - Anaphylaxis TORADOL (KETOROLAC TROMETHAMINE) 04/03/2012 4 - Hives ULTRAM (TRAMADOL) 06/26/2009 4 - Hives Comments: Swelling of tongue Date Reviewed: 02/20/2022 Reviewed by: Andria Butler LPN - Fully Assessed Reason for Visit: Community Monitoring Outreach [Other] Prescriptions as of 11/16/2023 - spironolactone (ALDACTONE) 50 mg tablet Take 1 tablet by mouth once daily. - metoprolol succinate ER (TOPROL XL) 100 mg Take 1 tablet by mouth once daily. - furosemide (LASIX) 20 mg tablet Take 1 tablet by mouth once daily. - losartan (COZAAR) 100 mg tablet Take 1 tablet by mouth once daily. - atorvastatin (LIPITOR) 80 mg tablet Take 1 tablet by mouth once daily. - omeprazole (PRILOSEC) 40 mg capsule Take 1 capsule by mouth once daily. - mometasone-formoterol (DULERA) 100-5 mcg/actuation inhaler Inhale 2 Puffs as instructed twice daily. - carbidopa-levodopa CR (SINEMET CR) 50-200 mg per tablet Take 1 tablet by mouth three times daily. From Neurologist. - LORazepam (ATIVAN) 0.5 mg From [facility]. - meloxicam (MOBIC) 7.5 mg tablet Take 7.5 mg by mouth once daily. - oxyCODONE-acetaminophen (PERCOCET) 5-325 mg tablet From [facility] - venlafaxine ER (EFFEXOR XR) 150 mg 24 hr capsule TAKE 1 CAPSULE BY MOUTH ONCE DAILY FOR DEPRESSION. DO NOT CHEW OR CRUSH - albuterol HFA (VENTOLIN HFA) 90 mcg/actuation inhaler INHALE 2 PUFFS BY MOUTH THREE TIMES A DAY NEEDED FOR SHORTNESS OF BREATH/WHEEZING/COUGH - ipratropium-albuterol (DUONEB) 0.5 mg-3 mg(2.5 mg base)/3 mL nebu INHALE 1 VIAL VIA NEBULIZER EVERY 4 HOURS NEEDED - apixaban (ELIQUIS) 5 mg tab(s) Take 1 tablet by mouth twice daily. - clonazePAM (KLONOPIN) 0.5 mg tablet Take 1 tablet by mouth twice daily. Per [facility]. - Mirtazapine (REMERON) 7.5 mg tablet Take 1 tablet by mouth daily at bedtime. Per [facility]. - acetaminophen (TYLENOL EXTRA STRENGTH) 500 mg tablet Take 1,000 mg by mouth every 8 hours as needed. - COMPOUNDED PRESCRIPTION PORTABLE OXYGEN VIA NASAL CANNULA. 2 LPM FOR USE WITH EXERTION, ACTIVITY. Dx:R09.02; J44.9; J98.4 Problem List As Of Date 11/16/2023 Noted Resolved Abdominal pain [R10.9] 04/03/2012 07/07/2015 UTI (urinary tract infection) [N39.0] 04/03/2012 12/21/2015 Stroke ([facility]) [I63.9] 04/03/2012 12/21/2015 Obesity [E66.9] 04/03/2012 07/07/2015 HTN (hypertension) [I10] 04/03/2012 09/03/2018 Eating disorder, unspecified [F50.9] 10/10/2012 Morbid obesity (HCC) [E66.01] 09/03/2018 Hypothyroidism [E03.9] 09/03/2018 Unilateral emphysema (HCC) [J43.0] 12/21/2015 Hypertension [I10] 07/07/2015 GERD (gastroesophageal reflux disease) [K21.9] Anxiety [F41.9] Arthritis [M19.90] Asthma [J45.909] 09/26/2017 Depression [F32.A] Epilepsy (HCC) [G40.909] Ulcer of the stomach and intestine [K28.9] 12/21/2015 Smoker [F17.200] Stroke (cerebrum) (HCC) [I63.9] 07/07/2015 Severe ankle sprain [S93.409A] 09/16/2015 05/07/2017 Chronic bilateral low back pain without sciatic*12/10/2015 Prediabetes [R73.03] 12/21/2015 09/03/2018 Pulmonary embolism (HCC) [I26.99] 01/17/2016 05/28/2017 Hypoxemia [R09.02] 01/17/2016 09/26/2017 STEPHANIE (obstructive sleep apnea) [G47.33] 02/02/2016 Asthma with chronic obstructive pulmonary disea*10/23/2016 Mixed hyperlipidemia [E78.2] 11/17/2016 Pulmonary hypertension, secondary (HCC) [PCV610*11/17/2016 History of DVT of lower extremity [Z86.718] 12/28/2016 Colonic mass [K63.89] 03/02/2017 09/26/2017 Obesity, Class III, BMI >= 40 [E66.01] 01/01/2018 Restrictive lung disease secondary to obesity [*08 (more content not included)...[facility]04-12-2024 Miscellaneous Notes* Letter - Coordinator, Mammography - 11/02/2023 7:27 AM EDT November 02, 2023 PID: [id number] Felisha Perrin [id number] [facility] [address] [place] [id number] Dear Ms. Perrin, We are pleased to inform you that the results of your recent breast imaging exam on 11/01/2023 are normal. Early detection of cancer is very important. We also understand recommendations regarding breast cancer screening are controversial. Please discuss with your primary care provider which strategy is best for you and whether a mammogram is right for you. Your imaging studies and report will be kept on file at [facility] as part of your permanent medical record and are available for your continuing care. Thank you for allowing us to help in meeting your health care needs. Sincerely, Dr. Brothers Interpreting Radiologist [facility] (Normal over 40) documented in this encounterBlanchard Valley [facility]04[facility] History of Present illness Narrative* Stephanie Hernandes Mammo Tech - 11/01/2023 2:10 PM EDT Radiology Service Progress Note PATIENT NAME: Felisha Perrin DATE OF SERVICE: November 01, 2023 TIME: 1:19 PM PATIENT IDENTITY VERIFICATION COMPLETED USING TWO (2) IDENTIFIERS: Name and Date of confirmedby patient verbally. FALL SCREENING: Has the patient had 2 falls in the last year or 1 fall with injury or currently using an Ambulatory Assistive Device (Walker, Cane, Wheelchair, Crutches, etc.)? Yes, Patient High Riskfor Falls What interventions were put in place to prevent falls during this visit? Increased Observations by Caregivers Wheel Chair Patient PATIENT GENDER DATA: Female. status: : No status: NO. PATIENT RELEVANT IMPLANT DATA REVIEWED: Not Applicable PATIENT PRESENTS WITH AN IMPLANTABLE OR ATTACHED SECURITIES LENDING TRADER: No RADIOLOGY DEPARTMENT: Mammography PERIPHERAL IV DATA: Not applicable SIGNED BY: Garth Brandon November 01, 2023 1:19 PM documented in this encounterBlanchard [facility]04[facility]24 NoteHNO ID: [id number] Author: STEPHANIE HERNANDES Mammo Tech Service: ? Author Type: Instant Potato Processing Supervisor Type: Progress Notes Filed: 11/01/2023 13:38 Note Text: Radiology Service Progress Note PATIENT NAME: Felisha Perrin DATE OF SERVICE: November 01, 2023 TIME: 1:19 PM PATIENT IDENTITY VERIFICATION COMPLETED USING TWO (2) IDENTIFIERS: Name and Date of confirmed by patient verbally. FALL SCREENING: Has the patient had 2 falls in the last year or 1 fall with injury or currently using an Ambulatory Assistive Device (Walker, Cane, Wheelchair, Crutches, etc.)? Yes, Patient High Risk for Falls What interventions were put in place to prevent falls during this visit? Increased Observations by Caregivers Wheel Chair Patient PATIENT GENDER DATA: Female. status: : No status: NO. PATIENT RELEVANT IMPLANT DATA REVIEWED: Not Applicable PATIENT PRESENTS WITH AN IMPLANTABLE OR ATTACHED SECURITIES LENDING TRADER: No RADIOLOGY DEPARTMENT: Mammography PERIPHERAL IV DATA: Not applicable SIGNED BY: Stephanie Hernandes Dittit November 01, 2023 1:19 [facility]04-11-2024 History of Present illness Narrative* Francisco Meza RT(R) - 11/01/2023 1:05 PM EDT Radiology Service Progress Note PATIENT NAME: Felisha Perrin DATE OF SERVICE: November 01, 2023 TIME: 12:58 PM PATIENT IDENTITY VERIFICATION COMPLETED USING TWO (2) IDENTIFIERS: Name and Date of confirmedby patient verbally. FALL SCREENING: Has the patient had 2 falls in the last year or 1 fall with injury or currently using an Ambulatory Assistive Device (Walker, Cane, Wheelchair, Crutches, etc.)? Yes, Patient High Riskfor Falls What interventions were put in place to prevent falls during this visit? Increased Observations by Caregivers PATIENT GENDER DATA: Female. status: : No status: NO. PATIENT RELEVANT IMPLANT DATA REVIEWED: Not Applicable PATIENT PRESENTS WITH AN IMPLANTABLE OR ATTACHED SECURITIES LENDING TRADER: No RADIOLOGY DEPARTMENT: Bone Density PERIPHERAL IV DATA: Not applicable SIGNED BY: RT Van(Noreen) November 01, 2023 12:58 PM documented in this encounterBlanchard Valley Health [facility]04[facility]24 NoteHNO ID: [id number] Author: FRANCISCO MEZA RT(R) Service: ? Author Type: Technologist Type: Progress Notes Filed: 11/01/2023 13:12 Note Text: Radiology Service Progress Note PATIENT NAME: Felisha Perrin DATE OF SERVICE: November 01, 2023 TIME: 12:58 PM PATIENT IDENTITY VERIFICATION COMPLETED USING TWO (2) IDENTIFIERS: Name and Date of confirmed by patient verbally. FALL SCREENING: Has the patient had 2 falls in the last year or 1 fall with injury or currently using an Ambulatory Assistive Device (Walker, Cane, Wheelchair, Crutches, etc.)? Yes, Patient High Risk for Falls What interventions were put in place to prevent falls during this visit? Increased Observations by Caregivers PATIENT GENDER DATA: Female. status: : No status: NO. PATIENT RELEVANT IMPLANT DATA REVIEWED: Not Applicable PATIENT PRESENTS WITH AN IMPLANTABLE OR ATTACHED SECURITIES LENDING TRADER: No RADIOLOGY DEPARTMENT: Bone Density PERIPHERAL IV DATA: Not applicable SIGNED BY: RT Van(R) November 01, 2023 12:58 [facility]03-25-2024 NoteHNO ID: [id number] Author: DEMARIO MARTINEZ RN Service: ? Author Type: Registered Nurse Type: Progress Notes Filed: 10/15/2023 11:46 Note Text: CDM Telephonic Outreach Provider Action/JEB Left a message to verify symptom status, instructed to contact PCP for condition changes and needs. My Chart Home Monitoring questionnaire location and updates provided Contacted for: Engagement Contact made with patient: No, left message. Demario Martinez RN October 15, 2023 11:26 [facility]03-25-2024 History of Present illness Narrative* Demario Martinez RN - 10/15/2023 11:09 AM EDT CD Telephonic Outreach Provider Brendan/JEB Left a message to verify symptom status, instructed to contact PCP for condition changes and needs. My Chart Home Monitoring questionnaire location and updates provided Contacted for: Engagement Contact made with patient: No, left message. Demario Martinez RN October 15, 2023 11:26 AM documented in this encounterBlanchard Valley [facility] NotePatient Outreach ([facility]) FELISHA PERRIN ([id number]) 1965 F Date Time Provider Department 10/15/23 DEMARIO MARTINEZ [facility] During your visit today, we recorded the following information about you: Demario Martinez RN 10/15/2023 11:46 AM Signed CDM Telephonic Outreach Provider Brendan/JEB Left a message to verify symptom status, instructed to contact PCP for condition changes and needs. My Chart Home Monitoring questionnaire location and updates provided Contacted for: Engagement Contact made with patient: No, left message. Demario Martinez RN October 15, 2023 11:26 AM Allergies As of Date: 10/15/2023 Noted Allergy Reaction ASPIRIN 08/24/2013 7 - Swelling DEMEROL (MEPERIDINE (PF)) 06/26/2009 FISH 11/19/2012 7 - Swelling ONION 11/19/2012 10 - Anaphylaxis PEACH 11/19/2012 10 - Anaphylaxis PEANUT 11/19/2012 10 - Anaphylaxis PENICILLINS 06/26/2009 SHELLFISH 11/19/2012 10 - Anaphylaxis TORADOL (KETOROLAC TROMETHAMINE) 04/03/2012 4 - Hives ULTRAM (TRAMADOL) 06/26/2009 4 - Hives Comments: Swelling of tongue Date Reviewed: 02/20/2022 Reviewed by: Andria Butler LPN - Fully Assessed Reason for Visit: Community Monitoring Outreach [Other] Prescriptions as of 10/15/2023 - spironolactone (ALDACTONE) 50 mg tablet Take 1 tablet by mouth once daily. - metoprolol succinate ER (TOPROL XL) 100 mg Take 1 tablet by mouth once daily. - furosemide (LASIX) 20 mg tablet Take 1 tablet by mouth once daily. - losartan (COZAAR) 100 mg tablet Take 1 tablet by mouth once daily. - atorvastatin (LIPITOR) 80 mg tablet Take 1 tablet by mouth once daily. - omeprazole (PRILOSEC) 40 mg capsule Take 1 capsule by mouth once daily. - mometasone-formoterol (DULERA) 100-5 mcg/actuation inhaler Inhale 2 Puffs as instructed twice daily. - carbidopa-levodopa CR (SINEMET CR) 50-200 mg per tablet Take 1 tablet by mouth three times daily. From Neurologist. - LORazepam (ATIVAN) 0.5 mg From [facility]. - meloxicam (MOBIC) 7.5 mg tablet Take 7.5 mg by mouth once daily. - oxyCODONE-acetaminophen (PERCOCET) 5-325 mg tablet From [facility] - venlafaxine ER (EFFEXOR XR) 150 mg 24 hr capsule TAKE 1 CAPSULE BY MOUTH ONCE DAILY FOR DEPRESSION. DO NOT CHEW OR CRUSH - albuterol HFA (VENTOLIN HFA) 90 mcg/actuation inhaler INHALE 2 PUFFS BY MOUTH THREE TIMES A DAY NEEDED FOR SHORTNESS OF BREATH/WHEEZING/COUGH - ipratropium-albuterol (DUONEB) 0.5 mg-3 mg(2.5 mg base)/3 mL nebu INHALE 1 VIAL VIA NEBULIZER EVERY 4 HOURS NEEDED - apixaban (ELIQUIS) 5 mg tab(s) Take 1 tablet by mouth twice daily. - clonazePAM (KLONOPIN) 0.5 mg tablet Take 1 tablet by mouth twice daily. Per [facility]. - Mirtazapine (REMERON) 7.5 mg tablet Take 1 tablet by mouth daily at bedtime. Per [facility]. - acetaminophen (TYLENOL EXTRA STRENGTH) 500 mg tablet Take 1,000 mg by mouth every 8 hours as needed. - COMPOUNDED PRESCRIPTION PORTABLE OXYGEN VIA NASAL CANNULA. 2 LPM FOR USE WITH EXERTION, ACTIVITY. Dx:R09.02; J44.9; J98.4 Problem List As Of Date 10/15/2023 Noted Resolved Abdominal pain [R10.9] 04/03/2012 07/07/2015 UTI (urinary tract infection) [N39.0] 04/03/2012 12/21/2015 Stroke (HCC) [I63.9] 04/03/2012 12/21/2015 Obesity [E66.9] 04/03/2012 07/07/2015 HTN (hypertension) [I10] 04/03/2012 09/03/2018 Eating disorder, unspecified [F50.9] 10/10/2012 Morbid obesity (HCC) [E66.01] 09/03/2018 Hypothyroidism [E03.9] 09/03/2018 Unilateral emphysema (HCC) [J43.0] 12/21/2015 Hypertension [I10] 07/07/2015 GERD (gastroesophageal reflux disease) [K21.9] Anxiety [F41.9] Arthritis [M19.90] Asthma [J45.909] 09/26/2017 Depression [F32.A] Epilepsy (HCC) [G40.909] Ulcer of the stomach and intestine [K28.9] 12/21/2015 Smoker [F17.200] Stroke (cerebrum) (HCC) [I63.9] 07/07/2015 Severe ankle sprain [S93.409A] 09/16/2015 05/07/2017 Chronic bilateral low back pain without sciatic*12/10/2015 Prediabetes [R73.03] 12/21/2015 09/03/2018 Pulmonary embolism (HCC) [I26.99] 01/17/2016 05/28/2017 Hypoxemia [R09.02] 01/17/2016 09/26/2017 STEPHANIE (obstructive sleep apnea) [G47.33] 02/02/2016 Asthma with chronic obstructive pulmonary disea*10/23/2016 Mixed hyperlipidemia [E78.2] 11/17/2016 Pulmonary hypertension, secondary (HCC) [NXW540*11/17/2016 History of DVT of lower extremity [Z86.718] 12/28/2016 Colonic mass [K63.89] 03/02/2017 09/26/2017 Obesity, Class III, BMI >= 40 [E66.01] 01/01/2018 Restrictive lung disease secondary to obesity [*03/11/2018 Anemia [D64.9] 05/15/2018 Acquired renal cyst [N28.1] 09/03/2018 05/05/2021 Essential hypertension [I10] 10/08/2018 Abnormal mammogram [R92.8] 01/10/2021 05/05/2021 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 Author Type: LICENSED NURSE Type: Progress Notes Filed: 10/13/2023 11:23 Note Text: POPULATION HEALTH NAVIGATION OUTREACH Action/FYI Reason for Outreach Care Gap/HCC or Scheduling Wellness Visits Care Gaps due: Follow-up Appointment Patient Contacted: Unable or unnecessary to reach patient: Left message Navigation Signature: Andria Butler LPN October 13, 2023 11:21 [facility]03-23-2024 History of Present illness Narrative* Andria Butler LPN - 10/13/2023 11:20 AM EDT POPULATION HEALTH NAVIGATION OUTREACH Action/FYI Reason for Outreach Care Gap/HCC or Scheduling Wellness Visits Care Gaps due: Follow-up Appointment Patient Contacted: Unable or unnecessary to reach patient: Left message Navigation Signature: Andria Butler LPN October 13, 2023 11:21 AM documented in this encounterBlanch[facility] NotePatient Outreach ([facility]) FELISHA PERRIN ([id number]) 1965 F Date Time Provider Department 10/13/23 ANDRIA BUTLER INTMelinaWS During your visit today, we recorded the following information about you: Andria Butler LPN 10/13/2023 11:23 AM Signed POPULATION HEALTH NAVIGATION OUTREACH Action/FYI Reason for Outreach Care Gap/HCC or Scheduling Wellness Visits Care Gaps due: Follow-up Appointment Patient Contacted: Unable or unnecessary to reach patient: Left message Navigation Signature: Andria Butler LPN October 13, 2023 11:21 AM Allergies As of Date: 10/13/2023 Noted Allergy Reaction ASPIRIN 08/24/2013 7 - Swelling DEMEROL (MEPERIDINE (PF)) 06/26/2009 FISH 11/19/2012 7 - Swelling ONION 11/19/2012 10 - Anaphylaxis PEACH 11/19/2012 10 - Anaphylaxis PEANUT 11/19/2012 10 - Anaphylaxis PENICILLINS 06/26/2009 SHELLFISH 11/19/2012 10 - Anaphylaxis TORADOL (KETOROLAC TROMETHAMINE) 04/03/2012 4 - Hives ULTRAM (TRAMADOL) 06/26/2009 4 - Hives Comments: Swelling of tongue Date Reviewed: 02/20/2022 Reviewed by: Andria Butler LPN - Fully Assessed Prescriptions as of 10/13/2023 - spironolactone (ALDACTONE) 50 mg tablet Take 1 tablet by mouth once daily. - metoprolol succinate ER (TOPROL XL) 100 mg Take 1 tablet by mouth once daily. - furosemide (LASIX) 20 mg tablet Take 1 tablet by mouth once daily. - losartan (COZAAR) 100 mg tablet Take 1 tablet by mouth once daily. - atorvastatin (LIPITOR) 80 mg tablet Take 1 tablet by mouth once daily. - omeprazole (PRILOSEC) 40 mg capsule Take 1 capsule by mouth once daily. - mometasone-formoterol (DULERA) 100-5 mcg/actuation inhaler Inhale 2 Puffs as instructed twice daily. - carbidopa-levodopa CR (SINEMET CR) 50-200 mg per tablet Take 1 tablet by mouth three times daily. From Neurologist. - LORazepam (ATIVAN) 0.5 mg From [facility]. - meloxicam (MOBIC) 7.5 mg tablet Take 7.5 mg by mouth once daily. - oxyCODONE-acetaminophen (PERCOCET) 5-325 mg tablet From [facility] - venlafaxine ER (EFFEXOR XR) 150 mg 24 hr capsule TAKE 1 CAPSULE BY MOUTH ONCE DAILY FOR DEPRESSION. DO NOT CHEW OR CRUSH - albuterol HFA (VENTOLIN HFA) 90 mcg/actuation inhaler INHALE 2 PUFFS BY MOUTH THREE TIMES A DAY NEEDED FOR SHORTNESS OF BREATH/WHEEZING/COUGH - ipratropium-albuterol (DUONEB) 0.5 mg-3 mg(2.5 mg base)/3 mL nebu INHALE 1 VIAL VIA NEBULIZER EVERY 4 HOURS NEEDED - apixaban (ELIQUIS) 5 mg tab(s) Take 1 tablet by mouth twice daily. - clonazePAM (KLONOPIN) 0.5 mg tablet Take 1 tablet by mouth twice daily. Per [facility]. - Mirtazapine (REMERON) 7.5 mg tablet Take 1 tablet by mouth daily at bedtime. Per [facility]. - acetaminophen (TYLENOL EXTRA STRENGTH) 500 mg tablet Take 1,000 mg by mouth every 8 hours as needed. - COMPOUNDED PRESCRIPTION PORTABLE OXYGEN VIA NASAL CANNULA. 2 LPM FOR USE WITH EXERTION, ACTIVITY. Dx:R09.02; J44.9; J98.4 Problem List As Of Date 10/13/2023 Noted Resolved Abdominal pain [R10.9] 04/03/2012 07/07/2015 UTI (urinary tract infection) [N39.0] 04/03/2012 12/21/2015 Stroke (HCC) [I63.9] 04/03/2012 12/21/2015 Obesity [E66.9] 04/03/2012 07/07/2015 HTN (hypertension) [I10] 04/03/2012 09/03/2018 Eating disorder, unspecified [F50.9] 10/10/2012 Morbid obesity (HCC) [E66.01] 09/03/2018 Hypothyroidism [E03.9] 09/03/2018 Unilateral emphysema (HCC) [J43.0] 12/21/2015 Hypertension [I10] 07/07/2015 GERD (gastroesophageal reflux disease) [K21.9] Anxiety [F41.9] Arthritis [M19.90] Asthma [J45.909] 09/26/2017 Depression [F32.A] Epilepsy (HCC) [G40.909] Ulcer of the stomach and intestine [K28.9] 12/21/2015 Smoker [F17.200] Stroke (cerebrum) (HCC) [I63.9] 07/07/2015 Severe ankle sprain [S93.409A] 09/16/2015 05/07/2017 Chronic bilateral low back pain without sciatic*12/10/2015 Prediabetes [R73.03] 12/21/2015 09/03/2018 Pulmonary embolism (HCC) [I26.99] 01/17/2016 05/28/2017 Hypoxemia [R09.02] 01/17/2016 09/26/2017 STEPHANIE (obstructive sleep apnea) [G47.33] 02/02/2016 Asthma with chronic obstructive pulmonary disea*10/23/2016 Mixed hyperlipidemia [E78.2] 11/17/2016 Pulmonary hypertension, secondary (HCC) [KNE689*11/17/2016 History of DVT of lower extremity [Z86.718] 12/28/2016 Colonic mass [K63.89] 03/02/2017 09/26/2017 Obesity, Class III, BMI >= 40 [E66.01] 01/01/2018 Restrictive lung disease secondary to obesity [*03/11/2018 Anemia [D64.9] 05/15/2018 Acquired renal cyst [N28.1] 09/03/2018 05/05/2021 Essential hypertension [I10] 10/08/2018 Abnormal mammogram [R92.8] 01/10/2021 05/05/2021 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 Author Type: Registered Nurse Type: Progress Notes Filed: 09/13/2023 11:06 Note Text: CDM Telephonic Outreach Provider Action/FYI CDM:COPD Left a message to verify symptom status and needs. Instructed to call PCP with any symptom or condition changes. [employer] sent Contacted for: Engagement Contact made with patient: No, left message. Demario Martinez RN September 13, 2023 10:47 [facility]02-22-2024 History of Present illness Narrative* Demario Martinez RN - 09/13/2023 10:21 AM EST CDM Telephonic Outreach Provider Action/FYI CDM:COPD Left a message to verify symptom status and needs. Instructed to call PCP with any symptom or condition changes. [employer] sent Contacted for: Engagement Contact made with patient: No, left message. Demario Martinez RN September 13, 2023 10:47 AM [facility] NotePatient Outreach ([facility]) ZOILAFELISHA ([id number]) 1965 F Date Time Provider Department 09/13/23 DEMARIO MARTINEZ [facility] During your visit today, we recorded the following information about you: Demario Martinez RN 09/13/2023 11:06 AM Signed CDM Telephonic Outreach Provider Action/FYI CDM:COPD Left a message to verify symptom status and needs. Instructed to call PCP with any symptom or condition changes. [employer] sent Contacted for: Engagement Contact made with patient: No, left message. Demario Martinez RN September 13, 2023 10:47 AM Allergies As of Date: 09/13/2023 Noted Allergy Reaction ASPIRIN 08/24/2013 7 - Swelling DEMEROL (MEPERIDINE (PF)) 06/26/2009 FISH 11/19/2012 7 - Swelling ONION 11/19/2012 10 - Anaphylaxis PEACH 11/19/2012 10 - Anaphylaxis PEANUT 11/19/2012 10 - Anaphylaxis PENICILLINS 06/26/2009 SHELLFISH 11/19/2012 10 - Anaphylaxis TORADOL (KETOROLAC TROMETHAMINE) 04/03/2012 4 - Hives ULTRAM (TRAMADOL) 06/26/2009 4 - Hives Comments: Swelling of tongue Date Reviewed: 02/20/2022 Reviewed by: Andria Butler LPN - Fully Assessed Reason for Visit: Community Monitoring Outreach [Other] Primary Visit Diagnosis:Asthma with chronic obstructive pulmonary disease (COPD) [J44.89] Order(s):PT ED PULMONARY [[id number]] Order #: [id number]: 1 Prescriptions as of 09/13/2023 - spironolactone (ALDACTONE) 50 mg tablet Take 1 tablet by mouth once daily. - metoprolol succinate ER (TOPROL XL) 100 mg Take 1 tablet by mouth once daily. - furosemide (LASIX) 20 mg tablet Take 1 tablet by mouth once daily. - losartan (COZAAR) 100 mg tablet Take 1 tablet by mouth once daily. - atorvastatin (LIPITOR) 80 mg tablet Take 1 tablet by mouth once daily. - omeprazole (PRILOSEC) 40 mg capsule Take 1 capsule by mouth once daily. - mometasone-formoterol (DULERA) 100-5 mcg/actuation inhaler Inhale 2 Puffs as instructed twice daily. - carbidopa-levodopa CR (SINEMET CR) 50-200 mg per tablet Take 1 tablet by mouth three times daily. From Neurologist. - LORazepam (ATIVAN) 0.5 mg From [facility]. - meloxicam (MOBIC) 7.5 mg tablet Take 7.5 mg by mouth once daily. - oxyCODONE-acetaminophen (PERCOCET) 5-325 mg tablet From [facility] - venlafaxine ER (EFFEXOR XR) 150 mg 24 hr capsule TAKE 1 CAPSULE BY MOUTH ONCE DAILY FOR DEPRESSION. DO NOT CHEW OR CRUSH - albuterol HFA (VENTOLIN HFA) 90 mcg/actuation inhaler INHALE 2 PUFFS BY MOUTH THREE TIMES A DAY NEEDED FOR SHORTNESS OF BREATH/WHEEZING/COUGH - ipratropium-albuterol (DUONEB) 0.5 mg-3 mg(2.5 mg base)/3 mL nebu INHALE 1 VIAL VIA NEBULIZER EVERY 4 HOURS NEEDED - apixaban (ELIQUIS) 5 mg tab(s) Take 1 tablet by mouth twice daily. - clonazePAM (KLONOPIN) 0.5 mg tablet Take 1 tablet by mouth twice daily. Per [facility]. - Mirtazapine (REMERON) 7.5 mg tablet Take 1 tablet by mouth daily at bedtime. Per [facility]. - acetaminophen (TYLENOL EXTRA STRENGTH) 500 mg tablet Take 1,000 mg by mouth every 8 hours as needed. - COMPOUNDED PRESCRIPTION PORTABLE OXYGEN VIA NASAL CANNULA. 2 LPM FOR USE WITH EXERTION, ACTIVITY. Dx:R09.02; J44.9; J98.4 Problem List As Of Date 09/13/2023 Noted Resolved Abdominal pain [R10.9] 04/03/2012 07/07/2015 UTI (urinary tract infection) [N39.0] 04/03/2012 12/21/2015 Stroke (HCC) [I63.9] 04/03/2012 12/21/2015 Obesity [E66.9] 04/03/2012 07/07/2015 HTN (hypertension) [I10] 04/03/2012 09/03/2018 Eating disorder, unspecified [F50.9] 10/10/2012 Morbid obesity (HCC) [E66.01] 09/03/2018 Hypothyroidism [E03.9] 09/03/2018 Unilateral emphysema (HCC) [J43.0] 12/21/2015 Hypertension [I10] 07/07/2015 GERD (gastroesophageal reflux disease) [K21.9] Anxiety [F41.9] Arthritis [M19.90] Asthma [J45.909] 09/26/2017 Depression [F32.A] Epilepsy (HCC) [G40.909] Ulcer of the stomach and intestine [K28.9] 12/21/2015 Smoker [F17.200] Stroke (cerebrum) (HCC) [I63.9] 07/07/2015 Severe ankle sprain [S93.409A] 09/16/2015 05/07/2017 Chronic bilateral low back pain without sciatic*12/10/2015 Prediabetes [R73.03] 12/21/2015 09/03/2018 Pulmonary embolism (HCC) [I26.99] 01/17/2016 05/28/2017 Hypoxemia [R09.02] 01/17/2016 09/26/2017 STEPHANIE (obstructive sleep apnea) [G47.33] 02/02/2016 Asthma with chronic obstructive pulmonary disea*10/23/2016 Mixed hyperlipidemia [E78.2] 11/17/2016 Pulmonary hypertension, secondary (HCC) [RVS361*11/17/2016 History of DVT of lower extremity [Z86.718] 12/28/2016 Colonic mass [K63.89] 03/02/2017 09/26/2017 Obesity, Class III, BMI >= 40 [E66.01] 01/01/2018 Restrictive lung disease secondary to obesity [*03/11/2018 Anemia [D64.9] 05/15/2018 Acquired renal cyst [N28.1] 09/03/2018 05/05/2021 Essential hypertension [I10] 10/08/2018 Abnormal mammogram [R92.8] 01/10/2021 05/05/2021 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 Author Type: Registered Nurse Type: Progress Notes Filed: 08/13/2023 16:44 Note Text: CDM Telephonic Outreach Provider Action/FYI CDM:COPD Left a message to verify symptom status and needs, instructed to call PCP with any changes in symptoms or condition. Contacted for: Engagement Contact made with patient: No, left message. Demario Martinez RN August 13, 2023 4:44 [facility]01[facility]24 NoteHNO ID: [id number] Author: DEMARIO MARTINEZ RN Service: ? Author Type: Registered Nurse Type: Progress Notes Filed: 08/13/2023 16:44 Note Text: CDM Telephonic Outreach Provider Action/FYI CDM:COPD Called Pt, unable to leave?a message to verify symptom status and needs. Contacted for: Engagement Contact made with patient: No, unable to leave message. Will reattempt call Demario Martinez RN August 10, 2023 1:21 [facility]01-17-2024 NoteHNO ID: [id number] Author: DEMARIO MARTINEZ RN Service: ? Author Type: Registered Nurse Type: Progress Notes Filed: 08/13/2023 16:44 Note Text: CDM Telephonic Outreach Provider Action/FYI CDM:COPD Left a message to verify symptom status and needs, instructed to call PCP with any changes in symptoms or condition. Contacted for: Engagement Contact made with patient: No, left message. Demario Martinez RN August 08, 2023 11:55 [facility]01-17-2024 NotePatient Outreach ([facility]) FELISHA PERRIN ([id number]) 1965 F Date Time Provider Department 08/08/23 DEMARIO MARTINEZYoanna During your visit today, we recorded the following information about you: Demario Martinez RN 08/13/2023 4:44 PM Signed CDM Telephonic Outreach Provider Action/FYI CDM:COPD Left a message to verify symptom status and needs, instructed to call PCP with any changes in symptoms or condition. Contacted for: Engagement Contact made with patient: No, left message. Demario Martinez RN August 08, 2023 11:55 AM Demario Martinez RN 08/13/2023 4:44 PM Signed CDM Telephonic Outreach Provider Action/FYI CDM:COPD Called Pt, unable to leave?a message to verify symptom status and needs. Contacted for: Engagement Contact made with patient: No, unable to leave message. Will reattempt call Demario Martinez RN August 10, 2023 1:21 PM Demario Martinez RN 08/13/2023 4:44 PM Signed CDM Telephonic Outreach Provider Action/FYI CDM:COPD Left a message to verify symptom status and needs, instructed to call PCP with any changes in symptoms or condition. Contacted for: Engagement Contact made with patient: No, left message. Demario Martinez RN August 13, 2023 4:44 PM Allergies As of Date: 08/08/2023 Noted Allergy Reaction ASPIRIN 08/24/2013 7 - Swelling DEMEROL (MEPERIDINE (PF)) 06/26/2009 FISH 11/19/2012 7 - Swelling ONION 11/19/2012 10 - Anaphylaxis PEACH 11/19/2012 10 - Anaphylaxis PEANUT 11/19/2012 10 - Anaphylaxis PENICILLINS 06/26/2009 SHELLFISH 11/19/2012 10 - Anaphylaxis TORADOL (KETOROLAC TROMETHAMINE) 04/03/2012 4 - Hives ULTRAM (TRAMADOL) 06/26/2009 4 - Hives Comments: Swelling of tongue Date Reviewed: 02/20/2022 Reviewed by: Andria Butler LPN - Fully Assessed Reason for Visit: Community Monitoring Outreach [Other] Prescriptions as of 08/13/2023 - spironolactone (ALDACTONE) 50 mg tablet Take 1 tablet by mouth once daily. - metoprolol succinate ER (TOPROL XL) 100 mg Take 1 tablet by mouth once daily. - furosemide (LASIX) 20 mg tablet Take 1 tablet by mouth once daily. - losartan (COZAAR) 100 mg tablet Take 1 tablet by mouth once daily. - atorvastatin (LIPITOR) 80 mg tablet Take 1 tablet by mouth once daily. - omeprazole (PRILOSEC) 40 mg capsule Take 1 capsule by mouth once daily. - mometasone-formoterol (DULERA) 100-5 mcg/actuation inhaler Inhale 2 Puffs as instructed twice daily. - carbidopa-levodopa CR (SINEMET CR) 50-200 mg per tablet Take 1 tablet by mouth three times daily. From Neurologist. - LORazepam (ATIVAN) 0.5 mg From [facility]. - meloxicam (MOBIC) 7.5 mg tablet Take 7.5 mg by mouth once daily. - oxyCODONE-acetaminophen (PERCOCET) 5-325 mg tablet From [facility] - venlafaxine ER (EFFEXOR XR) 150 mg 24 hr capsule TAKE 1 CAPSULE BY MOUTH ONCE DAILY FOR DEPRESSION. DO NOT CHEW OR CRUSH - albuterol HFA (VENTOLIN HFA) 90 mcg/actuation inhaler INHALE 2 PUFFS BY MOUTH THREE TIMES A DAY NEEDED FOR SHORTNESS OF BREATH/WHEEZING/COUGH - ipratropium-albuterol (DUONEB) 0.5 mg-3 mg(2.5 mg base)/3 mL nebu INHALE 1 VIAL VIA NEBULIZER EVERY 4 HOURS NEEDED - apixaban (ELIQUIS) 5 mg tab(s) Take 1 tablet by mouth twice daily. - clonazePAM (KLONOPIN) 0.5 mg tablet Take 1 tablet by mouth twice daily. Per [facility]. - Mirtazapine (REMERON) 7.5 mg tablet Take 1 tablet by mouth daily at bedtime. Per [facility]. - acetaminophen (TYLENOL EXTRA STRENGTH) 500 mg tablet Take 1,000 mg by mouth every 8 hours as needed. - COMPOUNDED PRESCRIPTION PORTABLE OXYGEN VIA NASAL CANNULA. 2 LPM FOR USE WITH EXERTION, ACTIVITY. Dx:R09.02; J44.9; J98.4 Problem List As Of Date 08/08/2023 Noted Resolved Abdominal pain [R10.9] 04/03/2012 07/07/2015 UTI (urinary tract infection) [N39.0] 04/03/2012 12/21/2015 Stroke (HCC) [I63.9] 04/03/2012 12/21/2015 Obesity [E66.9] 04/03/2012 07/07/2015 HTN (hypertension) [I10] 04/03/2012 09/03/2018 Eating disorder, unspecified [F50.9] 10/10/2012 Morbid obesity (HCC) [E66.01] 09/03/2018 Hypothyroidism [E03.9] 09/03/2018 Unilateral emphysema (HCC) [J43.0] 12/21/2015 Hypertension [I10] 07/07/2015 GERD (gastroesophageal reflux disease) [K21.9] Anxiety [F41.9] Arthritis [M19.90] Asthma [J45.909] 09/26/2017 Depression [F32.A] Epilepsy (HCC) [G40.909] Ulcer of the stomach and intestine [K28.9] 12/21/2015 Smoker [F17.200] Stroke (cerebrum) (HCC) [I63.9] 07/07/2015 Severe ankle sprain [S93.409A] 09/16/2015 05/07/2017 Chronic bilateral low back pain without sciatic*12/10/2015 Prediabetes [R73.03] 12/21/2015 09/03/2018 Pulmonary embolism (HCC) [I26.99] 01/17/2016 05/28/2017 Hypoxemia [R09.02] 01/17/2016 09/26/2017 STEPHANIE (obstructive sleep apnea) [G47.33] 02/02/2016 Asthma with chronic obstructive pulmonary disea*10/23/2016 Mixed hyperlipidemia [E78.2] (more content not included)...[facility]12-12-2023 Discharge summary Author Callum Knutson [facility] July 02, 2023 11:16pm Note Date/Time July 02, 2023 9:30pm [facility] Medical Records Department [address] [place] [address] Emergency Department Summary 07/02/23 MR#: [id number] Acct: [id number] Name: FELISHA PERRIN Rep #:[id number] : 1965 57 From: Callum Knutson MD PCP: Marilee Yu MD Status:REG ER Location: ED HPI History of Present Illness Chief Complaint: Abn Labs Narrative Narrative: 57-year-old female past medical history of COPD, nasal cannula oxygen, breast cancer, hypoxic brain injury because blood clot 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 She states over the last 2 days she felt very weak and tired but not necessarily more short of breath. She is not having chest pain. She is, however having left flank pain. She denies any bleeding diathesis except for a nosebleed the other day. She states when her platelets get low she usually has nosebleeds. She denies any black or tarry stool. No blood in her urine/hematuria. She presents because she went and saw her primarycare provider today, and when she [facility] to [facility] she [facility], shewas told that her hemoglobin was low at 6.5. She is also having the left flank pain. She denies any exacerbating or alleviating factors to her left flank pain. [facility] Medical History Acute and chronic respiratory failure Acute respiratory failure with hypoxia and hypercapnia Anemia Anxiety and depression Back pain Bilateral peripheral pulmonary emboli BiPAP (biphasic positive airway pressure) dependence Breast infection Cancer Cardiology follow-up encounter Cardiopulmonary arrest with successful resuscitation Chest pain Chronic anemia Chronic narcotic dependence Compression fracture of T5 vertebra Compression fracture of T6 vertebra Concussion Congestive heart failure COPD (chronic obstructive pulmonary disease) Coronary artery disease CPAP (continuous positive airway pressure) dependence Debility Diastolic dysfunction DVT (deep vein thrombosis) in DVT (deep venous thrombosis) Essential hypertension Falls frequently Former smoker FTT (failure to thrive) in adult Generalized muscle weakness GERD (gastroesophageal reflux disease) H/O long-term (current) use of anticoagulants HLD (hyperlipidemia) Hx of cardiovascular stress test Hx of echocardiogram Hypothyroidism Morbid obesity MSSA (methicillin susceptible Staphylococcus aureus) pneumonia Myocardial infarct On home oxygen therapy STEPHANIE (obstructive sleep apnea) Pulmonary embolism Restrictive lung disease Right rib fracture Seizures Sleep apnea Syncope and collapse TIA (transient ischemic attack) Wears dentures Wears glasses Home Medications clonazepam 1 mg tablet 1 mg PO BID anxiety 05/09/21 [History Last Taken 08/25/21] mirtazapine 7.5 mg tablet 7.5 mg PO QHS sleep 08/26/21 [History Last Taken Unknown] metoprolol succinate 100 mg tablet,extended release 24 hr 50 mg (1/2 x 100 mg) PO DAILY blood pressure #14 tabs 06/06/22 [Rx Last Taken Unknown] apixaban 5 mg tablet (Eliquis) 5 mg PO BID #60 tabs 08/04/22 [Rx Last Taken Unknown] albuterol 90 mcg/actuation aerosol inhaler 90 mcg inhalation BID PRN shortness of breath 08/24/22 [History Last Taken Unknown] furosemide 20 mg tablet (Lasix) 20 mg PO DAILY 08/24/22 [History Last Taken Unknown] lorazepam 0.5 mg tablet (Ativan) 1 mg PO Q6H 08/24/22 [History Last Taken Unknown] losartan 100 mg tablet (Cozaar) 100 mg PO DAILY 08/24/22 [History Last Taken Unknown] methadone 5 mg tablet 10 mg PO BID 08/24/22 [History Last Taken Unknown] ondansetron HCl 4 mg tablet 4 mg PO Q8H 08/24/22 [History Last Taken Unknown] oxycodone 10 mg tablet 15 mg PO Q4H 08/24/22 [History Last Taken Unknown] polyethylene glycol 3350 17 gram/dose oral powder (Miralax) 4 g PO DAILY 08/24/22 [History Last Taken Unknown] sennosides 8.6 mg tablet (senna) 8.6 mg PO BID 08/24/22 [History Last Taken Unknown] apixaban 5 mg tablet (Eliquis) 5 mg PO BID 07/02/23 [History Last Taken Unknown] carbidopa ER 50 mg-levodopa 200 mg tablet,extended release 1 tab PO QHS 07/02/23[History Last Taken Unknown] carbidopa ER 50 mg-levodopa 200 mg tablet,extended release 2 tab PO BID 07/02/23[History Last Taken Unknown] furosemide 20 mg tablet (Lasix) 10 mg PO QODAY 07/02/23 [History Last Taken Unknown] levetiracetam 500 mg tablet (Keppra) 500 mg PO BID 07/02/23 [History Last Taken Unknown] omeprazole 20 mg capsule,delayed release 20 mg PO DAILY 07/02/23 [History Last Taken Unknown] venlafaxine 150 mg capsule,extended release 24 hr (Effexor XR) 150 mg PO DAILY 07/02/23 [History Last Taken Unknown] Allergy/AdvReac Type Severity Reaction Status Date / Time aspirin Allergy Hives Verified 07/02/23 21:43 dicyclomine Allergy Itching Verified 07/02/23 21:43 ibuprofen Allergy Hives Verified 07/02/23 21:43 ketorolac tromethamine Allergy Angioedema Verified 07/02/23 21:43 [From Toradol] nut - unspecified Allergy Hives Verified 07/02/23 21:43 Penicillins [PCN] Allergy Hives Verified 07/02/23 21:43 tramadol HCl [From Ultram] Allergy Angioedema Verified 07/02/23 21:43 Family History Brother Myocardial infarction Asthma Mental disorder Psychiatric care Suicide attempt Father Colon cancer Brother Mental disorder Aunt Parkinson disease Sister Breast cancer Cervical cancer Ovarian cancer Sister Cervical cancer Ovarian cancer Mother Cancer leukemia History of blood clots Hypertension Surgical History History of cardiac catheterization History of cholecystectomy History of esophagogastroduodenoscopy (EGD) History of hysterectomy History of left breast biopsy History of left heart catheterization (LHC) (~04/22/21) History of lumpectomy of left breast Hx of appendectomy S/P lumpectomy, left breast Social History household members: other details: assisted living housing: assisted living facility current occupational status: unemployed Smoking Status: Former smoker quit date: 01/21/16 pack-years: 32 Electronic Cigarette Use: not used second hand exposure: Yes alcohol intake: never substance use type: does not use do you feel safe at home: No ROS ROS ED ROS Narrative Constitutional: No fever, no chills. Positive fatigue and generalized weakness. HEENT: No sore throat. No neck pain. No loss of vision. No rhinorrhea. Positive nosebleeds. Cardiovascular: No chest pain. No palpitations. No pedal edema. Respiratory: No cough, chronic shortness of breath. Abdominal: No abdominal pain. No nausea. No vomiting. Genitourinary: No dysuria. No hematuria. Positive left flank pain. Musculoskeletal: No myalgias. No arthralgias. Neurologic: No headaches. No dizziness. No lightheadedness. Skin: No rash. No change in color. Psychiatric: No depression. No anxiety. EXAM Physical Exam Narrative Exam Narrative: Afebrile. Vital signs noted. No acute distress. No bleeding diathesis. HEENT: Normocephalic. Atraumatic. PERRL, EOMI. Neck soft and supple. No pointtenderness or step off. Cardiovascular: Regular rate and rhythm. No murmurs, rubs, or gallops appreciated. Respiratory: No tachypnea. Lungs clear to auscultation bilaterally. Gastrointestinal: Abdomen soft, obese, nontender, with normoactive bowel sounds. No rebound or guarding. Neurological: Awake. Alert. Nonfocal, nonlateralizing. Skin: No rash. Normal color. Positive pallor. Musculoskeletal: No pedal edema. Full range of motion extremities. Const Vital Signs: 07/02/23 20:05 Temperature 97.5 F L Temperature Source Temporal Pulse Rate 69 Respiratory Rate 15 Blood Pressure 128/70 H Blood Pressure Mean 89 Pulse Ox 96 Oxygen Delivery Method Nasal Cannula Oxygen Flow Rate (L/min) 3 MDM MDM MDM Narrative Medical decision making narrative: In the differential diagnosis is anemia requiring transfusions, ureterolithiasisversus pyelonephritis. Her generalized weakness may also be from her anemia as well. Dehydration is in the differential as well. I reviewed her laboratory work and she has normal white count of 9.6. Hemoglobin 7.8 here, not 6.5. I donot feel she requires emergent transfusion. I reviewed her laboratory work and her BMP shows a sodium of 135 which I think is nonspecific, potassium normal at 4.1, glucose appropriately elevated at 100. Creatinine is slightly elevated at 1.09. Regarding her flank pain, her urinalysis is negative for infection with negative nitrites and 0-5 WBCs, within normal limits. I do not feel antibioticsare indicated. I reviewed her CT imaging and the radiology report which shows no evidence of ureterolithiasis or hydronephrosis, no cause for her reported left flank pain. As she states she was here mainly for transfusion because her hemoglobin was low, I feel she can be discharged back to assisted living at [facility] as her hemoglobin is 7.8 here today. She will follow-up with her primary care provider. Return instructions were reviewed. Disposition is discharged in stable condition. History & Record Review Discussion w/independent historian: Patient Additional record(s) reviewed:: Prior ED visit Lab Data Attestation: I reviewed the patient's lab results. Labs: Laboratory Results - last 24 hr 07/02/23 07/02/23 21:48 21:56 WBC 9.6 RBC 3.57 L Hgb 7.8 L Hct 27.0 L MCV 75.6 L MCH 21.8 L MCHC 28.9 L RDW Std Deviation 43.0 RDW Coeff of Immanuel 15.8 H Plt Count 266 MPV 10.3 Immature Gran % (Auto) 0.200 Neut % (Auto) 63.5 Lymph % (Auto) 24.9 [place] % (Auto) 7.9 Eos % (Auto) 3.1 Baso % (Auto) 0.4 Absolute Neuts (auto) 6.1 Absolute Lymphs (auto) 2.40 Nucleated RBC % 0 Sodium 135 L Potassium 4.1 Chloride 101 Carbon Dioxide 34.0 H Anion Gap 0 L BUN 16 Creatinine 1.09 H Estim Creat Clear Calc 53.31 Est GFR (MDRD) Af Amer 66 Est GFR (MDRD) Non-Af 55 L BUN/Creatinine Ratio 14.7 Glucose 100 Calcium 8.9 Urine Color Yellow Urine Clarity Clear Urine pH 6.0 Ur Specific [place] 1.010 Urine Protein Negative Urine Glucose (UA) Normal Urine Ketones Negative Urine Occult Blood 10 H Urine Nitrite Negative Urine Bilirubin Negative Urine Urobilinogen Normal Ur Leukocyte Esterase 25 H Urine RBC 0 SEEN Urine WBC 0-5 SEEN Ur Squamous Epith Cells 0 SEEN Urine Bacteria 0 SEEN Urine Mucus 0 SEEN Blood Type A POSITIVE Antibody Screen NEGATIVE Radiography Diagnostic Testing: Clinical Impression(s) from Imaging Studies Abdomen/Pelvis CT 07/02/23 21:26 IMPRESSION: Colonic diverticulosis without evidence of acute diverticulitis. No acute findings. Electronically Signed: Olive Vargas MD at 22:38 EST , Discharge Plan Triage Chief Complaint: Abn Labs ED Provider: Callum Knutson Dx/Rx/DC Orders Clinical Impression: Anemia, Flank pain, COPD (chronic obstructive pulmonary disease) Instructions: ED Anemia, Type Not Specified (Adult), ED Flank Pain, Uncertain Cause, ED Pain, Acute, Uncertain Cause Prescriptions: No Action sennosides [senna] 8.6 mg tablet 8.6 mg PO BID methadone 5 mg tablet 10 mg PO BID albuterol 90 mcg/actuation aerosol 90 mcg inhalation BID PRN Rx Instructions: 2 puff PRN twice daily as needed for SOB ondansetron HCl 4 mg tablet 4 mg PO Q8H polyethylene glycol 3350 [Miralax] 17 gram/dose powder 4 g PO DAILY losartan [Cozaar] 100 mg tablet 100 mg PO DAILY furosemide [Lasix] 20 mg tablet 20 mg PO DAILY oxycodone 10 mg tablet 15 mg PO Q4H Rx Instructions: one tab q4hrs routine and q1hr PRN for pain/SOB lorazepam [Ativan] 0.5 mg tablet 1 mg PO Q6H Rx Instructions: take one tablet q12hrs routinely and q4hrs prn anxiety clonazepam 1 mg tablet 1 mg PO BID mirtazapine 7.5 mg tablet 7.5 mg PO QHS Patient Comments: TAKE 1 TABLET BY MOUTH AT BEDTIME metoprolol succinate 100 mg tablet extended release 24 hr 50 mg PO DAILY Qty: 14 0RF Patient Comments: TAKE (1) TABLET BY MOUTH ONCE DAILY Rx Instructions: Hold for heart less than 60 or systolic blood pressure less than 100 mmHg. carbidopa-levodopa 50-200 mg tablet extended release 1 tab PO QHS Eliquis 5 mg tablet 5 mg PO BID furosemide [Lasix] 20 mg tablet 10 mg PO QODAY levetiracetam [Keppra] 500 mg tablet 500 mg PO BID omeprazole 20 mg capsule,delayed release(DR/EC) 20 mg PO DAILY venlafaxine [Effexor XR] 150 mg capsule,extended release 24hr 150 mg PO DAILY carbidopa-levodopa 50-200 mg tablet extended release 2 tab PO BID Rx Instructions: 1 TAB orally three times a day Eliquis 5 mg tablet 5 mg PO BID Qty: 60 1RF Primary Care Provider: Marilee Yu Referrals: Marilee Yu MD [Primary Care Provider] - As soon as possible Activity Restrictions/Additional Instructions: Your hemoglobin was 7.8 today. You do not require transfusions from the emergency department. Disposition Disposition: Assisted Living Discharge Location: [facility] [address] What to do if you have Problems For any increased pain, shortness of breath, bleeding, nausea or vomiting, chestpain, or any unexpected problems, contact your Primary Care Provider. Call [facility] ([phone]) or report to the closest Emergency Room. Call 911 if necessary. 07/02/23 8617 <Electronically signed by Callum Knutson MD> Cosigner Signature (if applicable): CC: Marilee Yu MD ~ Signed [facility] Work Phone: [phone]) 704-731311-04-2023 NoteHNO ID: [id number] Author: Demario Martinez, RN Service: ? Author Type: Registered Nurse Type: Progress Notes Filed: 05/26/2023 5:13 PM Note Text: CDM Telephonic Outreach Provider Action/FYI Spk with Pt she denies symptom changes or concerns, or needs. Provided My Chart 'Home Monitoring questionnaire location. Pt notes is living at [place] at [facility], Goals completed. Contacted for: Engagement Contact made with patient: Yes Patient identified by name and date of . Discussed care with patient Outcomes: Patient forgot, reminder given Are you experiencing any new or worsening symptoms you need to talk about today? 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 Routed to: No Action Needed CURTIS Education Provided this Outreach: No Demario Martinez RN May 26, 2023 5:06 [facility]11-04-2023 History of Present illness Narrative* Demario Martinez RN - 05/26/2023 5:06 PM EDT CDM Telephonic Outreach Provider Action/FYI Spk with Pt she denies symptom changes or concerns, or needs. Provided My Chart 'Home Monitoring questionnaire location. Pt notes is living at [place] at [facility], Goals completed. Contacted for: Engagement Contact made with patient: Yes Patient identified by name and date of . Discussed care with patient Outcomes: Patient forgot, reminder given Are you experiencing any new or worsening symptoms you need to talk about today? 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 Routed to: No Action Needed CURTIS Education Provided this Outreach: No Demario Martinez RN May 26, 2023 5:06 PM * Demario Martinez RN - 05/24/2023 5:22 PM EDT CDM Telephonic Outreach Provider Action/FYI CDM: COPD Left a message to verify symptom status, concerns or needs and to provide My Chart 'Home Monitoringquestionnaire location, and reminder.. Contacted for: Routine Telephonic Outreach Contact made with patient: No, left message. eDmario Martinez RN May 24, 2023 5:22 PM [facility] NoteHNO ID: [id number] Author: Demario Martinez RN Service: ? Author Type: Registered Nurse Type: Progress Notes Filed: 05/26/2023 5:13 PM Note Text: CDM Telephonic Outreach Provider Action/ CDM: COPD Left a message to verify symptom status, concerns or needs and to provide My Chart 'Home Monitoring questionnaire location, and reminder.. Contacted for: Routine Telephonic Outreach Contact made with patient: No, left message. Demario Martinez RN May 24, 2023 5:22 [facility]11-02-2023 NotePatient Outreach ([facility]) FELISHA PERRIN ([id number]) 1965 F Date Time Provider Department 05/24/23 DEMARIO MARTINEZ [facility] During your visit today, we recorded the following information about you: Demario Martinez RN 05/26/2023 5:13 PM Signed CDM Telephonic Outreach Provider Brendan/JEB CDM: COPD Left a message to verify symptom status, concerns or needs and to provide My Chart 'Home Monitoring questionnaire location, and reminder.. Contacted for: Routine Telephonic Outreach Contact made with patient: No, left message. Demario Martinez RN May 24, 2023 5:22 PM Demario Martinez RN 05/26/2023 5:13 PM Signed CDM Telephonic Outreach Provider Brendan/JEB Spk with Pt she denies symptom changes or concerns, or needs. Provided My Chart 'Home Monitoring questionnaire location. Pt notes is living at [place] at [facility], Goals completed. Contacted for: Engagement Contact made with patient: Yes Patient identified by name and date of . Discussed care with patient Outcomes: Patient forgot, reminder given Are you experiencing any new or worsening symptoms you need to talk about today? 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 Routed to: No Action Needed CURTIS Education Provided this Outreach: No Demario Martinez RN May 26, 2023 5:06 PM Allergies As of Date: 05/24/2023 Noted Allergy Reaction ASPIRIN 08/24/2013 7 - Swelling DEMEROL (MEPERIDINE (PF)) 06/26/2009 FISH 11/19/2012 7 - Swelling ONION 11/19/2012 10 - Anaphylaxis PEACH 11/19/2012 10 - Anaphylaxis PEANUT 11/19/2012 10 - Anaphylaxis PENICILLINS 06/26/2009 SHELLFISH 11/19/2012 10 - Anaphylaxis TORADOL (KETOROLAC TROMETHAMINE) 04/03/2012 4 - Hives ULTRAM (TRAMADOL) 06/26/2009 4 - Hives Comments: Swelling of tongue Date Reviewed: 02/20/2022 Reviewed by: Andria Butler LPN - Fully Assessed Reason for Visit: Community Monitoring Outreach [Other] Prescriptions as of 05/26/2023 - spironolactone (ALDACTONE) 50 mg tablet Take 1 tablet by mouth once daily. - metoprolol succinate ER (TOPROL XL) 100 mg Take 1 tablet by mouth once daily. - furosemide (LASIX) 20 mg tablet Take 1 tablet by mouth once daily. - losartan (COZAAR) 100 mg tablet Take 1 tablet by mouth once daily. - atorvastatin (LIPITOR) 80 mg tablet Take 1 tablet by mouth once daily. - omeprazole (PRILOSEC) 40 mg capsule Take 1 capsule by mouth once daily. - mometasone-formoterol (DULERA) 100-5 mcg/actuation inhaler Inhale 2 Puffs as instructed twice daily. - carbidopa-levodopa CR (SINEMET CR) 50-200 mg per tablet Take 1 tablet by mouth three times daily. From Neurologist. - LORazepam (ATIVAN) 0.5 mg From [facility]. - meloxicam (MOBIC) 7.5 mg tablet Take 7.5 mg by mouth once daily. - oxyCODONE-acetaminophen (PERCOCET) 5-325 mg tablet From [facility] - venlafaxine ER (EFFEXOR XR) 150 mg 24 hr capsule TAKE 1 CAPSULE BY MOUTH ONCE DAILY FOR DEPRESSION. DO NOT CHEW OR CRUSH - albuterol HFA (VENTOLIN HFA) 90 mcg/actuation inhaler INHALE 2 PUFFS BY MOUTH THREE TIMES A DAY NEEDED FOR SHORTNESS OF BREATH/WHEEZING/COUGH - ipratropium-albuterol (DUONEB) 0.5 mg-3 mg(2.5 mg base)/3 mL nebu INHALE 1 VIAL VIA NEBULIZER EVERY 4 HOURS NEEDED - apixaban (ELIQUIS) 5 mg tab(s) Take 1 tablet by mouth twice daily. - clonazePAM (KLONOPIN) 0.5 mg tablet Take 1 tablet by mouth twice daily. Per [facility]. - Mirtazapine (REMERON) 7.5 mg tablet Take 1 tablet by mouth daily at bedtime. Per [facility]. - acetaminophen (TYLENOL EXTRA STRENGTH) 500 mg tablet Take 1,000 mg by mouth every 8 hours as needed. - COMPOUNDED PRESCRIPTION PORTABLE OXYGEN VIA NASAL CANNULA. 2 LPM FOR USE WITH EXERTION, ACTIVITY. Dx:R09.02; J44.9; J98.4 Problem List As Of Date 05/24/2023 Noted Resolved Abdominal pain [R10.9] 04/03/2012 07/07/2015 UTI (urinary tract infection) [N39.0] 04/03/2012 12/21/2015 Stroke (HCC) [I63.9] 04/03/2012 12/21/2015 Obesity [E66.9] 04/03/2012 07/07/2015 HTN (hypertension) [I10] 04/03/2012 09/03/2018 Eating disorder, unspecified [F50.9] 10/10/2012 Morbid obesity (HCC) [E66.01] 09/03/2018 Hypothyroidism [E03.9] 09/03/2018 Unilateral emphysema (HCC) [J43.0] 12/21/2015 Hypertension [I10] 07/07/2015 GERD (gastroesophageal reflux disease) [K21.9] Anxiety [F41.9] Arthritis [M19.90] Asthma [J45.909] 09/26/2017 Depression [F32.A] Epilepsy (HCC) [G40.909] Ulcer of the stomach and intestine [K28.9] 12/21/2015 Smoker [F17.200] Stroke (cerebrum) (HCC) [I63.9] 07/07/2015 Severe ankle sprain [S93.409A] 09/16/2015 05/07/2017 Chronic bilateral low back pain without sciatic*12/10/2015 Prediabetes [R73.03] 12/21/2015 09/03/2018 Pulmonary embolism (HCC) [I26.99] 01/17/2016 05/28/2017 Hypoxemia [R09.02] 01/17/2016 09/26/2017 O (more content not included)...[facility]08-09-2023 NoteHNO ID: [id number] Author: Demario Martinez RN Service: ? Author Type: Registered Nurse Type: Progress Notes Filed: 02/28/2023 2:25 PM Note Text: CDM Telephonic Outreach Provider Action/FYI CDM: COPD Left a message to verify symptom status and needs and to provide My Chart 'Home Monitoring questionnaire location. Contacted for: Engagement Contact made with patient: No, left message. Demario Martinez RN February 28, 2023 2:23 [facility]08-09-2023 History of Present illness Narrative* Demario Martinez RN - 02/28/2023 2:23 PM EDT CDM Telephonic Outreach Provider Action/FYI CDM: COPD Left a message to verify symptom status and needs and to provide My Chart 'Home Monitoring questionnaire location. Contacted for: Engagement Contact made with patient: No, left message. Demario Martinez RN February 28, 2023 2:23 PM * Demario Martinez RN - 02/22/2023 2:51 PM EDT CDM Telephonic Outreach Provider Action/FYI CDM: COPD Called Pt to verify symptom status and needs and to provide My Chart 'Home Monitoring questionnairelocation, line was busy, unable to leave a message Contacted for: Engagement Contact made with patient: No, unable to leave message. Will reattempt call Demario Martinez RN February 22, 2023 2:51 PM documented in [facility] encounterBl[facility]23 NoteHNO ID: [id number] Author: Demario Martinez RN Service: ? Author Type: Registered Nurse Type: Progress Notes Filed: 02/28/2023 2:25 PM Note Text: CDM Telephonic Outreach Provider Action/FYI CDM: COPD Called Pt to verify symptom status and needs and to provide My Chart 'Home Monitoring questionnaire location, line was busy, unable to leave a message Contacted for: Engagement Contact made with patient: No, unable to leave message. Will reattempt call Demario Martinez RN February 22, 2023 2:51 [facility]08-03-2023 NotePatient Outreach ([facility]) FELISHA PERRIN ([id number]) 1965 F Date Time Provider Department 02/22/23 DEMARIO MARTINEZ [facility] During your visit today, we recorded the following information about you: Demario Martinez RN 02/28/2023 2:25 PM Signed CDM Telephonic Outreach Provider Action/I CDM: COPD Called Pt to verify symptom status and needs and to provide My Chart 'Home Monitoring questionnaire location, line was busy, unable to leave a message Contacted for: Engagement Contact made with patient: No, unable to leave message. Will reattempt call Demario Martinez RN February 22, 2023 2:51 PM Demario Martinez RN 02/28/2023 2:25 PM Signed CDM Telephonic Outreach Provider Action/FYI CDM: COPD Left a message to verify symptom status and needs and to provide My Chart 'Home Monitoring questionnaire location. Contacted for: Engagement Contact made with patient: No, left message. Demario Martinez RN February 28, 2023 2:23 PM Allergies As of Date: 02/22/2023 Noted Allergy Reaction ASPIRIN 08/24/2013 7 - Swelling DEMEROL (MEPERIDINE (PF)) 06/26/2009 FISH 11/19/2012 7 - Swelling ONION 11/19/2012 10 - Anaphylaxis PEACH 11/19/2012 10 - Anaphylaxis PEANUT 11/19/2012 10 - Anaphylaxis PENICILLINS 06/26/2009 SHELLFISH 11/19/2012 10 - Anaphylaxis TORADOL (KETOROLAC TROMETHAMINE) 04/03/2012 4 - Hives ULTRAM (TRAMADOL) 06/26/2009 4 - Hives Comments: Swelling of tongue Date Reviewed: 02/20/2022 Reviewed by: Andria Butler LPN - Fully Assessed Reason for Visit: Community Monitoring Outreach [Other] Prescriptions as of 02/28/2023 - spironolactone (ALDACTONE) 50 mg tablet Take 1 tablet by mouth once daily. - metoprolol succinate ER (TOPROL XL) 100 mg Take 1 tablet by mouth once daily. - furosemide (LASIX) 20 mg tablet Take 1 tablet by mouth once daily. - losartan (COZAAR) 100 mg tablet Take 1 tablet by mouth once daily. - atorvastatin (LIPITOR) 80 mg tablet Take 1 tablet by mouth once daily. - omeprazole (PRILOSEC) 40 mg capsule Take 1 capsule by mouth once daily. - mometasone-formoterol (DULERA) 100-5 mcg/actuation inhaler Inhale 2 Puffs as instructed twice daily. - carbidopa-levodopa CR (SINEMET CR) 50-200 mg per tablet Take 1 tablet by mouth three times daily. From Neurologist. - LORazepam (ATIVAN) [facility]. - meloxicam (MOBIC) 7.5 mg tablet Take 7.5 mg by mouth once daily. - oxyCODONE-acetaminophen (PERCOCET) 5-325 mg tablet From [facility] - venlafaxine ER (EFFEXOR XR) 150 mg 24 hr capsule TAKE 1 CAPSULE BY MOUTH ONCE DAILY FOR DEPRESSION. DO NOT CHEW OR CRUSH - albuterol HFA (VENTOLIN HFA) 90 mcg/actuation inhaler INHALE 2 PUFFS BY MOUTH THREE TIMES A DAY NEEDED FOR SHORTNESS OF BREATH/WHEEZING/COUGH - ipratropium-albuterol (DUONEB) 0.5 mg-3 mg(2.5 mg base)/3 mL nebu INHALE 1 VIAL VIA NEBULIZER EVERY 4 HOURS NEEDED - apixaban (ELIQUIS) 5 mg tab(s) Take 1 tablet by mouth twice daily. - clonazePAM (KLONOPIN) 0.5 mg tablet Take 1 tablet by mouth twice daily. Per [facility]. - Mirtazapine (REMERON) 7.5 mg tablet Take 1 tablet by mouth daily at bedtime. Per [facility]. - acetaminophen (TYLENOL EXTRA STRENGTH) 500 mg tablet Take 1,000 mg by mouth every 8 hours as needed. - COMPOUNDED PRESCRIPTION PORTABLE OXYGEN VIA NASAL CANNULA. 2 LPM FOR USE WITH EXERTION, ACTIVITY. Dx:R09.02; J44.9; J98.4 Problem List As Of Date 02/22/2023 Noted Resolved Abdominal pain [R10.9] 04/03/2012 07/07/2015 UTI (urinary tract infection) [N39.0] 04/03/2012 12/21/2015 Stroke (HCC) [I63.9] 04/03/2012 12/21/2015 Obesity [E66.9] 04/03/2012 07/07/2015 HTN (hypertension) [I10] 04/03/2012 09/03/2018 Eating disorder, unspecified [F50.9] 10/10/2012 Morbid obesity (HCC) [E66.01] 09/03/2018 Hypothyroidism [E03.9] 09/03/2018 Unilateral emphysema (HCC) [J43.0] 12/21/2015 Hypertension [I10] 07/07/2015 GERD (gastroesophageal reflux disease) [K21.9] Anxiety [F41.9] Arthritis [M19.90] Asthma [J45.909] 09/26/2017 Depression [F32.A] Epilepsy (HCC) [G40.909] Ulcer of the stomach and intestine [K28.9] 12/21/2015 Smoker [F17.200] Stroke (cerebrum) (HCC) [I63.9] 07/07/2015 Severe ankle sprain [S93.409A] 09/16/2015 05/07/2017 Chronic bilateral low back pain without sciatic*12/10/2015 Prediabetes [R73.03] 12/21/2015 09/03/2018 Pulmonary embolism (HCC) [I26.99] 01/17/2016 05/28/2017 Hypoxemia [R09.02] 01/17/2016 09/26/2017 STEPHANIE (obstructive sleep apnea) [G47.33] 02/02/2016 Asthma with chronic obstructive pulmonary disea*10/23/2016 Mixed hyperlipidemia [E78.2] 11/17/2016 Pulmonary hypertension, secondary (HCC) [KLK327*11/17/2016 History of DVT of lower extremity [Z86.718] 12/28/2016 Colonic mass [K63.89] 03/02/2017 09/26/2017 Obesity, Class III, BMI >= 40 [E66.01] 01/01/2018 Restrictive lung disease secondary to obesity [*03/11/20 (more content not included)...[facility]07-20-2023 Discharge summary Author Kee Funk [facility] February 07, 2023 10:47pm Note Date/Time February 07, 2023 10:3 4pm [facility] Medical Records Department [address] [place] [address] Emergency Department Summary 02/07/23 MR#: [id number] Acct: [id number] Name: FELISHA PERRIN Rep #:[id number] : 1965 57 From: Kee Funk MD PCP: Marilee Yu MD Status:REG ER Location: ED HPI HPI - Fall History of Present Illness Chief Complaint: Fall Narrative Narrative: Patient presents after head injury and a hip injury after mechanical fall yesterday. She was at her assisted living and tripped. No loss consciousness. She has no neck pain no chest wall pain back pain or any other injuries she is still able to ambulate. She is chronically on oxygen. [facility] Medical History Abnormal cardiac enzyme level Acute and chronic respiratory failure Acute hyperkalemia Acute kidney injury Acute respiratory failure with hypoxia and hypercapnia LEIGH ANN (acute kidney injury) Anemia Anxiety and depression Back pain Bilateral peripheral pulmonary emboli BiPAP (biphasic positive airway pressure) dependence Breast infection Cancer Cardiology follow-up encounter Cardiopulmonary arrest with successful resuscitation Chest pain Chronic anemia Chronic narcotic dependence Compression fracture of T5 vertebra Compression fracture of T6 vertebra Concussion Congestive heart failure COPD (chronic obstructive pulmonary disease) COPD exacerbation Coronary artery disease CPAP (continuous positive airway pressure) dependence Debility Diastolic dysfunction DVT (deep vein thrombosis) in DVT (deep venous thrombosis) Essential hypertension Falls frequently Former smoker FTT (failure to thrive) in adult Generalized muscle weakness GERD (gastroesophageal reflux disease) H/O long-term (current) use of anticoagulants HLD (hyperlipidemia) Hx of cardiovascular stress test Hx of echocardiogram Hypothyroidism Morbid obesity MSSA (methicillin susceptible Staphylococcus aureus) pneumonia Myocardial infarct On home oxygen therapy STEPHANIE (obstructive sleep apnea) Pulmonary embolism Restrictive lung disease Right rib fracture Seizure disorder Seizures Sleep apnea Syncope and collapse TIA (transient ischemic attack) Wears dentures Wears glasses Home Medications clonazepam 1 mg tablet 1 mg PO BID anxiety 05/09/21 [History Last Taken 08/25/21] food supplemt, lactose-reduced (Ensure Compact oral liquid) 118 ml PO DAILY supplement 05/24/21 [History Last Taken 08/25/21] mirtazapine 7.5 mg tablet 7.5 mg PO QHS sleep 08/26/21 [History Last Taken Unknown] carbidopa ER 50 mg-levodopa 200 mg tablet,extended release 1 tab PO TID #90 tabs108/05/21 [Rx Last Taken Unknown] metoprolol succinate 100 mg tablet,extended release 24 hr 50 mg (1/2 x 100 mg) PO DAILY blood pressure #14 tabs 06/06/22 [Rx Last Taken Unknown] apixaban 5 mg tablet (Eliquis) 5 mg PO BID #60 tabs 08/04/22 [Rx Last Taken Unknown] levetiracetam 500 mg tablet (Keppra) 500 mg PO BID seizures #60 tabs 08/11/22 [Rx Last Taken Unknown] albuterol 90 mcg/actuation aerosol inhaler mcg inhalation 08/24/22 [History Last Taken Unknown] esomeprazole magnesium 20 mg capsule,delayed release 20 mg PO DAILY 08/24/22 [History Last Taken Unknown] furosemide 20 mg tablet (Lasix) 20 mg PO DAILY 08/24/22 [History Last Taken Unknown] lorazepam 0.5 mg tablet (Ativan) 0.5 mg PO DAILY PRN 08/24/22 [History Last Taken Unknown] losartan 100 mg tablet (Cozaar) 100 mg PO DAILY 08/24/22 [History Last Taken Unknown] methadone 5 mg tablet 7.5 mg PO BID 08/24/22 [History Last Taken Unknown] ondansetron HCl 4 mg tablet 4 mg PO Q8H 08/24/22 [History Last Taken Unknown] oxycodone 10 mg tablet 10 mg PO BID PRN 08/24/22 [History Last Taken Unknown] polyethylene glycol 3350 17 gram/dose oral powder (Miralax) 4 g PO DAILY 08/24/22 [History Last Taken Unknown] sennosides 8.6 mg tablet (senna) 8.6 mg PO BID 08/24/22 [History Last Taken Unknown] Allergy/AdvReac Type Severity Reaction Status Date / Time aspirin Allergy Hives Verified 02/07/23 22:09 dicyclomine Allergy Itching Verified 02/07/23 22:09 ibuprofen Allergy Hives Verified 02/07/23 22:09 ketorolac tromethamine Allergy Angioedema Verified 02/07/23 22:09 [From Toradol] nut - unspecified Allergy Hives Verified 02/07/23 22:09 Penicillins [PCN] Allergy Hives Verified 02/07/23 22:09 tramadol HCl [From Ultram] Allergy Angioedema Verified 02/07/23 22:09 Family History Brother Myocardial infarction Asthma Mental disorder Psychiatric care Suicide attempt Father Colon cancer Brother Mental disorder Aunt Parkinson disease Sister Breast cancer Cervical cancer Ovarian cancer Sister Cervical cancer Ovarian cancer Mother Cancer leukemia History of blood clots Hypertension Surgical History History of cardiac catheterization History of cholecystectomy History of esophagogastroduodenoscopy (EGD) History of hysterectomy History of left breast biopsy History of left heart catheterization (LHC) (~04/22/21) History of lumpectomy of left breast Hx of appendectomy S/P lumpectomy, left breast Social History household members: none current occupational status: unemployed Smoking Status: Former smoker quit date: 01/21/16 pack-years: 32 Electronic Cigarette Use: not used second hand exposure: Yes alcohol intake: never substance use type: does not use do you feel safe at home: No ROS ROS ED ROS Narrative Social: Lives in assisted living Medications: Reviewed, quite extensive I reviewed her ECF paperwork Past medical history: Reviewed, it is quite extensive I reviewed in [employer] paperwork Review of systems General: There is a forehead injury. No loss of consciousness HEENT: No other facial injury Neck: No neck pain Cardiovascular: Patient denies any chest pain or palpitations Chest wall: No chest wall contusions Respiratory: Chronic dyspnea no worse than normal. GI: There is no nausea vomiting diarrhea or abdominal pain, no abdominal wall contusions Skin: No lacerations or abrasions Neurological: Patient has no memory loss, confusion, or any focal weakness Psychiatric: No recent behavioral changes Back: No back pain, no problems with ambulation Musculoskeletal: Right buttock contusion EXAM Physical Exam Narrative Exam Narrative: Physical exam Vitals reviewed General: Does not appear in significant distress HEENT: Right forehead abrasion Head: No head injury Eyes: Extraocular movements intact Neck: No C-spine tenderness with full range of motion Heart: Regular rate normal pulses Chest wall: No chest wall pain Lungs coarse lungs. She has no respiratory distress. GI: Abdomen is soft and nontender there is no mass no guarding no abdominal wallcontusion : Stable pelvis Musculoskeletal: Ecchymosis over the right buttock. No obvious pelvis tenderness. No deformity of the hip or pain with logrolling or flexion and extension. Skin: No abrasions or laceration Neurological: Patient is alert and oriented with no focal deficits Const Vital Signs: 02/07/23 22:06 02/07/23 22:10 Temperature 96.5 F L Temperature Source Temporal Pulse Rate 72 Respiratory Rate 14 Respiratory Effort Normal Non-Labored Respiratory Depth Normal Respiratory Pattern Normal Blood Pressure 122/73 H Blood Pressure Mean 89 Pulse Ox 98 99 Oxygen Delivery Method Nasal Cannula Nasal Cannula Oxygen Flow Rate (L/min) 3 3 MDM MDM MDM Narrative Medical decision making narrative: Right hip x-ray does not show any fracture this is read by me CT is abnormal. Patient had a mechanical fall, I believe she is stable for discharge. I thoughtabout a head injury and intracranial bleed however these are unfounded I thoughtabout C-spine injury however this is unfounded. She does not have any pelvis fracture or hip fracture. She is still able to ambulate. This was a mechanicalfall therefore the patient does not meet criteria for blood work at this time. She appears well. She does not meet criteria for admission, she is still able to ambulate at her assisted living and she does have some help there. I talked her about all this and she understands. She will be discharged in stable condition. She was given analgesia in the emergency department. Discharge Plan Triage Chief Complaint: Fall ED Provider: Kee Funk Dx/Rx/DC Orders Clinical Impression: Concussion without loss of consciousness, Contusion of buttock, Fall Instructions: Preventing Falls: Staying Active Prescriptions: No Action Ensure Compact Liquid 118 ml PO DAILY Patient Comments: 2 ENSURE'S DAILY sennosides [senna] 8.6 mg tablet 8.6 mg PO BID methadone 5 mg tablet 7.5 mg PO BID albuterol 90 mcg/actuation aerosol inhalation Rx Instructions: 2 puff PRN twice daily as needed for SOB ondansetron HCl 4 mg tablet 4 mg PO Q8H polyethylene glycol 3350 [Miralax] 17 gram/dose powder 4 g PO DAILY losartan [Cozaar] 100 mg tablet 100 mg PO DAILY furosemide [Lasix] 20 mg tablet 20 mg PO DAILY oxycodone 10 mg tablet 10 mg PO BID PRN Rx Instructions: one tab q4hrs routine and q1hr PRN for pain/SOB esomeprazole magnesium 20 mg capsule,delayed release(DR/EC) 20 mg PO DAILY lorazepam [Ativan] 0.5 mg tablet 0.5 mg PO DAILY PRN Rx Instructions: take one tablet q12hrs routinely and q4hrs prn anxiety clonazepam 1 mg tablet 1 mg PO BID mirtazapine 7.5 mg tablet 7.5 mg PO QHS Patient Comments: TAKE 1 TABLET BY MOUTH AT BEDTIME metoprolol succinate 100 mg tablet extended release 24 hr 50 mg PO DAILY Qty: 14 0RF Patient Comments: TAKE (1) TABLET BY MOUTH ONCE DAILY Rx Instructions: Hold for heart less than 60 or systolic blood pressure less than 100 mmHg. carbidopa-levodopa 50-200 mg tablet extended release 1 tab PO TID Qty: 90 3RF Rx Instructions: 1 TAB orally three times a day Eliquis 5 mg tablet 5 mg PO BID Qty: 60 1RF levetiracetam [Keppra] 500 mg tablet 500 mg PO BID Qty: 60 0RF Primary Care Provider: Marilee Yu Referrals: Marilee Yu MD [Primary Care Provider] - 3-5 Days Disposition Disposition: Home, Self Care What to do if you have Problems For any increased pain, shortness of breath, bleeding, nausea or vomiting, chestpain, or any unexpected problems, contact your Primary Care Provider. Call [facility] ([phone]) or report to the closest Emergency Room. Call 911 if necessary. 02/07/232246 <Electronically signed by Kee Funk MD> Cosigner Signature (if applicable): CC: Marilee Yu MD ~ Signed [facility] Work Phone: 1(925) 370-791901-18-2023 History of Present illness Narrative* Tom Montelongo MD - 08/09/2022 10:17 AM EST Images from the original note were not included. This visit has been rescheduled as a phone visit to comply with patient safety concerns in accordance with CDC recommendations. Telephone/Video Encounter This visit was performed via interactive telehealth. This visit was initiated by the patient / provider and the patient and provider interacted in real time. Location of the patient: Unknown Location of the provider: Remote Reviewed informed consent with patient: yes - see MR Patient/parent indicated understanding of informed consent: yes see MR Phone numbers Verified number (above) and current location (in MR) as well as privacy and minimization of distractions. Agreed provider would call pt back if call was disconnected. Total Time Spent with Patient: 0 minutes, of which greater than 50% was spent on counseling or coordinating care. Twice attempted to reach patient at 10:10 and 10:20 at the phone #s above. No answer, unable to reach pt. Call forwarded to [employer] messaging [employer], voicemail has only phone number, no other identifier, unable to leave HIPAA-complaint message If patient calls back please ask if any concerns and if need refills. If so, please ask which medications and which pharmacy to send to. 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 Admissions Specialist PGY-3 This encounter was opened in error. Patient was a No-Show. Please disregard. documented in this [id number] Miscellaneous Notes* Telephone Encounter - Anrdia Butler JOAN - 07/25/2022 3:27 PM EST Patient has been identified by name and date of : Yes Patient phones for refill(s): Requested Prescriptions Pending Prescriptions Disp Refills spironolactone (ALDACTONE) 50 mg tablet 90 tablet 1 Sig: Take 1 tablet by mouth once daily. metoprolol succinate ER (TOPROL XL) 100 mg 90 tablet 1 Sig: Take 1 tablet by mouth once daily. furosemide (LASIX) 20 mg tablet 90 tablet 1 Sig: Take 1 tablet by mouth once daily. losartan (COZAAR) 100 mg tablet 90 tablet 1 Sig: Take 1 tablet by mouth once daily. atorvastatin (LIPITOR) 80 mg tablet 90 tablet 1 Sig: Take 1 tablet by mouth once daily. omeprazole (PRILOSEC) 40 mg capsule 90 capsule 1 Sig: Take 1 capsule by mouth once daily. mometasone-formoterol (DULERA) 100-5 mcg/actuation inhaler 13 g 0 Sig: Inhale 2 Puffs as instructed twice daily. Date of last office visit in primary care: 02/20/2022 No future appt scheduled. Last 2 Encounter Wt Readings: Date: Wt: 10/18/2021 113.4 kg (250 lb) 08/22/2021 116.6 kg (257 lb) Previous labs/tests for medication: Cholesterol: HDL Cholesterol (mg/dL) Date Value 11/23/2020 52 LDL Cholesterol (mg/dL) Date Value 11/23/2020 101 ALT (U/L) Date Value 08/22/2021 19 Non HDL Cholesterol (mg/dL) Date Value 11/23/2020 143 Blood Pressure: BUN (mg/dL) Date Value 08/22/2021 21 Sodium (mmol/L) Date Value 08/22/2021 136 Last 1 Encounter BP Readings: Date: BP: 02/20/2022 106/68 Please advise. Thank you. Andria Butler LPN * Telephone Encounter - Fouzia Little - 07/24/2022 12:28 PM ESTSummary: Refill Patient has been identified by name and date of : Yes Last office visit in this department: 01/31/2019 RX INSTRUCTIONS: Patient aware RX will be sent to pharmacy. No need to notify patient. Patient phones requesting refills as follows: Requested Prescriptions Pending Prescriptions Disp Refills spironolactone (ALDACTONE) 50 mg tablet 90 tablet 1 Sig: Take 1 tablet by mouth once daily. metoprolol succinate ER (TOPROL XL) 100 mg 90 tablet 1 Sig: Take 1 tablet by mouth once daily. furosemide (LASIX) 20 mg tablet 90 tablet 1 Sig: Take 1 tablet by mouth once daily. losartan (COZAAR) 100 mg tablet 90 tablet 1 Sig: Take 1 tablet by mouth once daily. atorvastatin (LIPITOR) 80 mg tablet 90 tablet 1 Sig: Take 1 tablet by mouth once daily. omeprazole (PRILOSEC) 40 mg capsule 90 capsule 1 Sig: Take 1 capsule by mouth once daily. mometasone-formoterol (DULERA) 100-5 mcg/actuation inhaler 13 g 0 Sig: Inhale 2 Puffs as instructed twice daily. Please review and advise. Fouzia Little documented in this [facility]Bl[facility] Miscellaneous Notes* Telephone Encounter - Ritika Berry RN - 06/28/2022 8:41 AM EST Patient notified and appt made for 07/03/22 with Yessi Bell CNP. Ritika Berry RN * Telephone Encounter - Yessi Bell APRN.CNP - 06/28/2022 8:19 AM EST Patient has no showed last two appointments (05/26 and 03/17), needs to reschedule Yessi Bell APRN.CNP * Telephone Encounter - Ritika Berry RN - 06/27/2022 4:31 PM EST Patient has been identified by name and date of : Yes Pharmacy phones for refill(s): Requested Prescriptions Pending Prescriptions Disp Refills mometasone-formoterol (DULERA) 100-5 mcg/actuation inhaler 13 g 0 Sig: Inhale 2 Puffs as instructed twice daily. albuterol HFA (VENTOLIN HFA) 90 mcg/actuation inhaler 18 g 3 Sig: INHALE 2 PUFFS BY MOUTH THREE TIMES A DAY NEEDED FOR SHORTNESS OF BREATH/WHEEZING/COUGH ipratropium-albuterol (DUONEB) 0.5 mg-3 mg(2.5 mg base)/3 mL nebu 100 Each 0 Sig: INHALE 1 VIAL VIA NEBULIZER EVERY 4 HOURS NEEDED Date of last office visit in primary care: 02/20/22 Last 2 Encounter Wt Readings: Date: Wt: 10/18/2021 113.4 kg (250 lb) 08/22/2021 116.6 kg (257 lb) Please advise. Thank you. Ritika Berry RN documented in this encounterBlanch[facility]12[facility] Note* Addendum Note - Minnie Edwards MD - 06/26/2022 12:07 PM ESTAddended by: MININE EDWARDS on: 06/26/2022 12:07 PM Modules accepted: Level of Service [id number] Miscellaneous Notes* Addendum Note - Minnie Edwards MD - 06/26/2022 12:07 PM ESTAddended by: MINNIE EDWARDS on: 06/26/2022 12:07 PM Modules accepted: Level of Service documented in this [id number] Miscellaneous Notes* Telephone Encounter - Kalli Zarate RN - 05/24/2022 9:29 AM EDT Last Office Visit: 02/20/2022 Future Office Visit: 05/26/2022 Requested Prescriptions Pending Prescriptions Disp Refills ipratropium-albuterol (DUONEB) 0.5 mg-3 mg(2.5 mg base)/3 mL nebu 100 Each 3 Sig: INHALE 1 VIAL VIA NEBULIZER EVERY 4 HOURS NEEDED mometasone-formoterol (DULERA) 100-5 mcg/actuation inhaler 13 g 3 Sig: Inhale 2 Puffs as instructed twice daily. Date of Last Labs: 02/15/2022 documented in this encounterBlanchard Valley [facility]10[facility] History of Present illness Narrative* Minnie Edwards MD - 05/10/2022 10:30 AM EDT Images from the original note were not included. Documentation: Mode: Telephone Patient Patient Work Phone: Patient Cell Preferred phone: [phone] Consent: I confirmed patient understanding of the risks and benefits of telehealth visits and obtained consent to proceed with the telehealth visit. Location of Patient: Home of patient Telephone/Video Encounter This visit was initiated by the patient / provider and the patient and provider interacted in real time. Location of the patient: Home of patient Location of the provider: [place] Reviewed informed consent with patient: yes - see MR Patient/parent indicated understanding of informed consent: yes see MR Phone numbers Preferred phone #: [phone] Verified number (above) and current location (in MR) as well as privacy and minimization of distractions. Agreed provider would call pt back if call was disconnected. Patient provided two identifiers Total Time Spent with Patient: 20 minutes for Pharmacological Management , of which greater than 50% was spent on counseling or coordinating care. PHARMACOLOGIC MANAGEMENT: 05/10/2022 START TIME: 11:15 END TIME: 11:35 Service Authorized by Treatment Plan/ISP: Yes MEDICATIONS: Current Outpatient Medications on File Prior to Visit Medication Sig Dispense Refill venlafaxine (EFFEXOR XR) 150 MG ER capsule TAKE 1 CAPSULE BY MOUTH ONCE DAILY 30 Capsule 2 mirtazapine (REMERON) 7.5 MG tablet TAKE 1 TABLET BY MOUTH EVERY NIGHT AT BEDTIME 90 Tablet 0 clonazePAM (KlonoPIN) 0.5 MG tablet Take 1 Tablet by mouth 2 times daily as needed for Anxiety for up to 30 days. 45 Tablet 1 aluminum & magnesium hydroxide-simethicone (MAALOX REGULAR STRENGTH) 200-200-20 MG/5ML suspension Take 15 mL by mouth every 6 hours as needed for Other. 1 Bottle 3 nicotine (NICODERM CQ) 14 MG/24HR patch Place 1 Patch on the skin every 24 hours. 30 Patch 3 atorvastatin (LIPITOR) 20 MG tablet Take 1 Tablet by mouth at bedtime. 30 Tablet 2 losartan (COZAAR) 100 MG tablet Take 1 Tablet by mouth daily. 30 Tablet 3 albuterol (PROAIR HFA) inhaler 90 mcg/inh Inhale 2 Puffs. Cholecalciferol (VITAMIN D) 2000 UNITS CAPS Take 2,000 Units by mouth daily. 30 Cap 11 No current facility-administered medications on file prior to visit. SIDE EFFECTS: None reported. SIGNIFICANT LIFE CHANGES/UPDATE: None reported. OARRS: Reviewed today, no concerns. Treatment Plan Goal Addressed Today: Yes SUBJECTIVE: Klonopin - takes it in the morning Remeron - takes it at night Effexor - morning Sleep - not the best - due to the pain. Mood - okay Has been doing okay, back on the up. Was recently put in hospice. Taking it one day at a time. Has a anesthesiology crna coming in 1 day/week. Talks to and son some times and finds it comforting. Panic attack - last was 3 weeks ago, has about 1-2 per month. OBJECTIVE/MENTAL STATUS EXAM: 1. APPEARANCE: unable to assess due to phone visit 2. BEHAVIOR: cooperative, calm 3. ORIENTATION: Oriented to time, person & place 4. SPEECH: spontaneous, normal rate and flow 5. THOUGHT PROCESS: organized 6. THOUGHT CONTENT: No evidence of paranoia, No evidence of delusions. Denies SI/HI 7. PERCEPTIONS: No evidence of perceptual disturbance. Denies AH/VH 8. MOOD: euthymic 9. AFFECT: limited due to due to phone visit 10. ATTENTION/CONCENTRATION: Sustained 11. RECENT AND REMOTE MEMORY: Within normal limits 12. JUDGMENT AND INSIGHT: Fair 13. MUSCULOSKELETAL: unable to assess due to phone visit 14. RIGIDITY: unable to assess due to phone visit Cognitive function is sufficient for dialogue with therapist: Yes Suicide Screener: C-SSRS [place]-Suicide Severity Rating Scale Able to complete [place]-Suicide Severity Rating Scale with Patient?: Yes 1) Wish to be : No 2) Current suicidal thoughts: No 6) C-SSRS Suicidal Behavior: No Risk of Suicide: Negative Screen Did patient score moderate or high risk on the C-SSRS?: No SAFE-T PAIN ASSESSMENT: Patient did not report pain today but does have pain issues. LAB STUDIES AND TESTS: None today IMPRESSION: No acute safety concerns Denies SE from medications Denies SI, HI, AH, VH, paranoia Mood stable DIAGNOSIS: Major Depressive Disorder, recurrent, moderate General Anxiety Disorder Panic Disorder Bereavement Active/pertinent medical issues impacting patient presentation: Past Medical History: Diagnosis Date COPD (chronic obstructive pulmonary disease) (HCC) DVT (deep venous thrombosis) (HCC) recurrent; ? PE (pt denies) Hemorrhoids had colonscopy 10 y ago Hiatal hernia HTN (hypertension) Hyperlipidemia Hypothyroidism Morbid obesity (HCC) STEPHANIE on CPAP Osteoporosis Prediabetes RA (rheumatoid arthritis) (HCC) neg RF and CCP on 03/09/15 Restless leg syndrome Stroke ([facility]) Vitamin D deficiency MENTAL HEALTH INTERVENTIONS: Maintain medications at current doses -Continue Remeron 7.5 mg at bedtime to stimulate sleep and appetite. -Continue Klonopin to 0.5 mg po BID prn for anxiety (45 tablets for 30 days) -Continue Effexor XR to 150 mg daily for mood and anxiety. - encouraged participation in psychotherapy Risk and benefit of medications discussed Encouraged to make phone calls with concerns Availability of ED after clinic hours discussed Informed consent was taking along with risk, benefit and alternatives of medications were discussedwith patient PATIENT RESPONSE TO INTERVENTIONS: Verbalized information correctly Verbalizes understanding CHANGES TO TREATMENT PLAN: None needed at this time. Have you had any change in the condition of your health?No Have you had a visit with a primary care provider in the past 12 months?Yes PATIENT EDUCATION ON CURRENT PROTOCOL: RISKS AND BENEFITS OF MEDICATIONS DISCUSSED: Yes ENCOURAGED TO MAKE PHONE CALLS WITH CONCERNS: Yes AVAILABILITY OF ED AFTER CLINIC HOURS DISCUSSED: Yes FOLLOW-UP PLAN: Is the patient on two or more psychotropic medications in the same class? No Follow up required to prevent relapse: Yes Follow up: 3 months Problems being treated are amenable to intervention: Yes Pharmacological Management appointment: Patient to schedule Tom Montelongo M.D. Admissions Specialist PGY-3 Teaching Physician Note: I saw and evaluated the patient on 05/10/22. I personally obtained the keith and critical portions ofthe history and physical exam. I reviewed the resident's documentation and discussed the patient with the resident. I agree with the resident's medical decision making as documented in the resident'snote. Minnie Edwards MD documented in this [id number] Telephone encounter Note* Telephone Encounter - Bib Enriquez RPh - 04/02/2022 3:21 PM EDT Last visit with Judy Gomez DO (Resident) Psychiatry 11/02/21 [id number] Miscellaneous Notes* Telephone Encounter - Bib Enriquez [facility] - 04/02/2022 3:21 PM EDT Last visit with Judy Gomez DO (Resident) Psychiatry 11/02/21 documented in this [id number] Telephone encounter Note* Telephone Encounter - Avani Ewing RN - 03/16/2022 9:20 AM EDT Remeron last ordered on 12/27/21 for a 90 day supply with no refills. Pended 90 day supply. [id number] Miscellaneous Notes* Telephone Encounter - Avani Ewing RN - 03/16/2022 9:20 AM EDT Remeron last ordered on 12/27/21 for a 90 day supply with no refills. Pended 90 day supply. * Telephone Encounter - Carolina Noyola - 03/15/2022 2:10 PM EDT Last visit with Psychiatry Tom Montelongo was 02/08/2022 Next visit with Psychiatry (Tom Montelongo) is 05/10/2022 documented in this [id number] Telephone encounter Note* Telephone Encounter - Carolina Noyola - 03/15/2022 2:10 PM EDT Last visit with Psychiatry Tom Montelongo was 02/08/2022 Next visit with Psychiatry (Tom Montelongo) is 05/10/2022 [id number] Miscellaneous Notes* Telephone Encounter - Andria Butler LPN - 03/13/2022 7:29 PM EDT Advised Patient, it was faxed. She will reach out to [facility]. Andria Butler LPN * Telephone Encounter - Leola Schwartz RN - 03/13/2022 2:03 PM EDT Patient calling to ask if Palliative Care consult has been faxed to [facility] as discussed @ on 01/30. Order in Epic. Leola Schwartz RN documented in this encounterBl[facility]08-[facility] Miscellaneous Notes* Letter - Mammography Coordinator - 02/20/2022 3:08 PM EDT February 20, 2022 PID: [id number] Felisha Perrin [id number] [place] [address] Dear Ms. Perrin, We are pleased to inform you that the results of your recent breast imaging exam on 02/20/2022 are normal. Early detection of cancer is very important. We also understand recommendations regarding breast cancer screening are controversial. Please discuss with your primary care provider which strategy is best for you and whether a mammogram is right for you. Your imaging studies and report will be kept on file at [facility] as part of your permanent medical record and are available for your continuing care. Thank you for allowing us to help in meeting your health care needs. Sincerely, Dr. Pierce Interpreting Radiologist [facility] (Normal over 40) documented in this encounterBlanchard Valley [facility]08-01-2022 History of Present illness Narrative* Alvarez Montanez MD - 02/20/2022 2:19 PM EDT This note was created using NoteWriter. Subjective Felisha Perrin is a 56 year old female. She was just here for hospital follow up 3 weeks ago. She hada history of deep vein thrombosis and developed left calf pain last night, reminiscent of deep veinthrombosis. She was switched by hospitalist to apixiban. She had chronic generalized pains and had been getting acute prescriptions for opioids on a repeated basis. I referred her to palliative care 3 weeks ago. They have not been contacted yet. Review of Systems Constitutional: Negative. HENT: Negative. Respiratory: Negative. Cardiovascular: Positive for leg swelling. Negative for chest pain and palpitations. Gastrointestinal: Negative. Musculoskeletal: Positive for arthralgias, back pain, gait problem and myalgias. See HPI. Neurological: Positive for tremors. 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 furosemide (LASIX) 20 mg tablet Take 1 tablet by mouth once daily. spironolactone (ALDACTONE) 50 mg tablet Take 1 tablet by mouth once daily. omeprazole (PRILOSEC) 40 mg capsule Take 1 capsule by mouth once daily. losartan (COZAAR) 100 mg tablet Take 1 tablet by mouth once daily. metoprolol succinate ER (TOPROL XL) 100 mg Take 1 tablet by mouth once daily. albuterol HFA (VENTOLIN HFA) 90 mcg/actuation inhaler INHALE 2 PUFFS BY MOUTH THREE TIMES A DAY NEEDED FOR SHORTNESS OF BREATH/WHEEZING/COUGH ipratropium-albuterol (DUONEB) 0.5 mg-3 mg(2.5 mg base)/3 mL nebu INHALE 1 VIAL VIA NEBULIZER EVERY4 HOURS NEEDED mometasone-formoterol (DULERA) 100-5 mcg/actuation inhaler Inhale 2 Puffs as instructed twice daily. divalproex ER (DEPAKOTE ER) 250 mg 24 hr tablet Take 1 tablet by mouth twice daily. Per NEUROLOGY. levETIRAcetam (KEPPRA) 500 mg tablet Take 1 tablet by mouth twice daily. Per NEUROLOGY. clonazePAM (KLONOPIN) 0.5 mg tablet Take 1 tablet by mouth twice daily. Per [facility]. Mirtazapine (REMERON) 7.5 mg tablet Take 1 tablet by mouth daily at bedtime. Per [facility]. acetaminophen (TYLENOL EXTRA STRENGTH) 500 mg tablet Take 1,000 mg by mouth every 8 hours as needed. venlafaxine ER (EFFEXOR XR) 75 mg 24 hr capsule Take 75 mg by mouth once daily. Plus 37.5 mg capsule. [facility]. venlafaxine ER (EFFEXOR XR) 37.5 mg 24 hr capsule Take 37.5 mg by mouth once daily. Plus 75 mg capsule. [facility]. mometasone (ELOCON) 0.1 % cream APPLY 1 APPLICATION TO AFFECTED AREA ONCE DAILY NEEDED FOR FACIAL RASH. AVOID EYES NOSE MOUTH COMPOUNDED PRESCRIPTION PORTABLE OXYGEN VIA NASAL CANNULA. 2 LPM FOR USE WITH EXERTION, ACTIVITY. Dx:R09.02; J44.9; J98.4 apixaban (ELIQUIS) 5 mg tab(s) Take 1 tablet by mouth twice daily. No current facility-administered medications for this visit. Objective BP 106/68 (BP Site: Left Arm, BP Position: Sitting, BP Cuff Size: Large Adult) Pulse 68 Temp 36C (96.8 F) (Temporal Artery) Resp 20 SpO2 97% Physical Exam Constitutional: General: She is not in acute distress. Cardiovascular: Rate and Rhythm: Normal rate and regular rhythm. Pulmonary: Effort: Pulmonary effort is normal. Breath sounds: Normal breath sounds. Musculoskeletal: General: Tenderness present. Right lower leg: No edema. Left lower leg: Edema present. Neurological: General: No focal deficit present. Mental Status: She is alert. Comments: Wheelchair bound. Recurrent general clonus of all extremities. Test results pertinent to today's visit were reviewed and discussed with the patient. Assessment and Plan 1. Left leg pain - ICD9: 729.5, ICD10: M79.605 (primary diagnosis) - US DVT LOWER LT 2. History of DVT of lower extremity - ICD9: V12.51, ICD10: Z86.718 - APIXABAN 5 MG TABLET 3. Anemia, unspecified type - ICD9: 285.9, ICD10: D64.9 Stable. 4. Chronic pain syndrome - ICD9: 338.4, ICD10: G89.4 Follow up on PALLIATIVE CARE referral. Patient again requesting for pain medication. 5. History of pulmonary embolism - ICD9: V12.55, ICD10: Z86.711 - APIXABAN 5 MG TABLET Alvarez Montanez MD documented in this encounterBl[facility] History of Present illness Narrative* Stephanie Hernandes Dittit - 02/20/2022 11:30 AM EDT Radiology Service Progress Note PATIENT NAME: Felisha Perrin DATE OF SERVICE: February 20, 2022 TIME: 11:58 AM PATIENT IDENTITY VERIFICATION COMPLETED USING TWO (2) IDENTIFIERS: Name and Date of confirmedby patient verbally. FALL SCREENING: Has the patient had 2 falls in the last year or 1 fall with injury or currently using an Ambulatory Assistive Device (Walker, Cane, Wheelchair, Crutches, etc.)? No PATIENT GENDER DATA: Female. status: : No status: NO. PATIENT RELEVANT IMPLANT DATA REVIEWED: Not Applicable RADIOLOGY DEPARTMENT: Mammography PERIPHERAL IV DATA: Not applicable SIGNED BY: Stephanie Hernandes Dittit February 20, 2022 11:58 AM documented in this encounterBlanchard Valley [facility]07-29-[facility]22 Miscellaneous Notes* Telephone Encounter - Melissa Blanca LPN - 02/17/2022 1:46 PM EDT Patient calling asking for lab results. Went over results, notes from Dr Montanez with understanding. * Telephone Encounter - Alvarez Montanez MD - 02/17/2022 1:42 PM EDT Stable anemia. No transfusion needed at this time. * Telephone Encounter - Suzan Marks RN - 02/16/2022 11:37 AM EDT Pt called in checking on lab results. Can provider go over and call Pt back and advise. Pt asking if she would need a blood transfusion. documented in this encounterBlanchard [facility]07-25-2022 Note* Addendum Note - Minnie Edwadrs MD - 02/13/2022 4:20 PM EDTAddended by: MINNIE EDWARDS on: 02/13/2022 04:20 PM Modules accepted: Level of Service [id number] Note* Addendum Note - Minnie Edwards MD - 02/13/2022 4:20 PM EDTAddended by: MINNIE EDWARDS on: 02/13/2022 04:20 PM Modules accepted: Level of Service [id number] Miscellaneous Notes* Addendum Note - Minnie Edwards MD - 02/13/2022 4:20 PM EDTAddended by: MINNIE EDWARDS on: 02/13/2022 04:20 PM Modules accepted: Level of Service documented in this [id number] History of Present illness Narrative* Minnie Edwards MD - 02/08/2022 9:46 AM EDT Images from the original note were not included. Documentation: Mode: Telephone Patient Patient Work Phone: Patient Cell Preferred phone: [phone] Consent: I confirmed patient understanding of the risks and benefits of telehealth visits and obtained consent to proceed with the telehealth visit. Location of Patient: Home of patient Telephone Encounter This visit was initiated by the patient / provider and the patient and provider interacted in real time. Location of the patient: Home of patient Location of the provider: [facility] Reviewed informed consent with patient: yes - see MR Patient/parent indicated understanding of informed consent: yes see MR Phone numbers Preferred phone #: [phone] Verified number (above) and current location (in MR) as well as privacy and minimization of distractions. Agreed provider would call pt back if call was disconnected. Patient provided two identifiers Total Time Spent with Patient: 32 minutes for Pharmacological Management , of which greater than 50% was spent on counseling or coordinating care. PHARMACOLOGIC MANAGEMENT: 02/08/2022 START TIME: 10:10 AM END TIME: 10:48 AM Service Authorized by Treatment Plan/ISP: Yes MEDICATIONS: Current Outpatient Medications on File Prior to Visit Medication Sig Dispense Refill venlafaxine (EFFEXOR XR) 150 MG ER capsule TAKE 1 CAPSULE BY MOUTH ONCE DAILY 30 Capsule 2 mirtazapine (REMERON) 7.5 MG tablet TAKE 1 TABLET BY MOUTH EVERY NIGHT AT BEDTIME *EMERGENCY REFILL* 90 Tablet 0 clonazePAM (KlonoPIN) 0.5 MG tablet Take 1 Tablet by mouth 2 times daily as needed for Anxiety for up to 90 days. 45 Tablet 2 aluminum & magnesium hydroxide-simethicone (MAALOX REGULAR STRENGTH) 200-200-20 MG/5ML suspension Take 15 mL by mouth every 6 hours as needed for Other. 1 Bottle 3 nicotine (NICODERM CQ) 14 MG/24HR patch Place 1 Patch on the skin every 24 hours. 30 Patch 3 atorvastatin (LIPITOR) 20 MG tablet Take 1 Tablet by mouth at bedtime. 30 Tablet 2 losartan (COZAAR) 100 MG tablet Take 1 Tablet by mouth daily. 30 Tablet 3 albuterol (PROAIR HFA) inhaler 90 mcg/inh Inhale 2 Puffs. Cholecalciferol (VITAMIN D) 2000 UNITS CAPS Take 2,000 Units by mouth daily. 30 Cap 11 No current facility-administered medications on file prior to visit. SIDE EFFECTS: None reported. SIGNIFICANT LIFE CHANGES/UPDATE: None reported. Found son was recently. OARRS: Reviewed today, no concerns Treatment Plan Goal Addressed Today: Yes SUBJECTIVE: Still has been feeling very anxious. Son was missing for a couple months - filed a missing person report, found out that that he was . Sleep - poor Son used to be living together. about a year ago, then she had a blood clot in her brain and then her son . Denies SI/intent/plan Doesn't have any social support Is wheelchair bound wants grief counseling. Still has times where she talks to the and the son. Finds it comforting to talk to them. Medications - Klonopin - 1 or 2 times per day, Effexor - I dont see much of a difference and Remeron - not as helpful Has a dog 'Liz. Anxiety - has been high, especially because she lives alone. Hard for her to even take her trash out and stuff - feels trapped. Tried talking to her brother and sister in law. PCP has been trying to get her assisted living, considering other living options too. Panic - has them a couple times per week. Seizures - hasn't had for a while. OBJECTIVE/MENTAL STATUS EXAM: 1. APPEARANCE: unable to assess due to phone visit 2. BEHAVIOR: cooperative, calm 3. ORIENTATION: Oriented to time, person & place 4. SPEECH: spontaneous, normal rate and flow 5. THOUGHT PROCESS: organized 6. THOUGHT CONTENT: No evidence of paranoia, No evidence of delusions. Denies SI/HI 7. PERCEPTIONS: No evidence of perceptual disturbance. Denies AH/VH 8. MOOD: low 9. AFFECT: limited due to due to phone visit 10. ATTENTION/CONCENTRATION: Sustained 11. RECENT AND REMOTE MEMORY: Within normal limits 12. JUDGMENT AND INSIGHT: Fair 13. MUSCULOSKELETAL: unable to assess due to phone visit 14. RIGIDITY: unable to assess due to phone visit Cognitive function is sufficient for dialogue with therapist: Yes Suicide Screener: C-SSRS [place]-Suicide Severity Rating Scale Able to complete [place]-Suicide Severity Rating Scale with Patient?: Yes 1) Wish to be : No 2) Current suicidal thoughts: No 6) C-SSRS Suicidal Behavior: No Risk of Suicide: Negative Screen Did patient score moderate or high risk on the C-SSRS?: No SAFE-T PAIN ASSESSMENT: Patient did not report pain today. LAB STUDIES AND TESTS: None today IMPRESSION: No acute safety concerns Denies SE from medications Denies SI, HI, AH, VH, paranoia Has had a lot kristian stressors over the last 1 year. Poor social support. Needs grief counseling. Denies SI/intent/plan. Future oriented. DIAGNOSIS: Major Depressive Disorder, recurrent, moderate General Anxiety Disorder Panic Disorder Bereavement Active/pertinent medical issues impacting patient presentation: Past Medical History: Diagnosis Date COPD (chronic obstructive pulmonary disease) (HCC) DVT (deep venous thrombosis) (HCC) recurrent; ? PE (pt denies) Hemorrhoids had colonscopy 10 y ago Hiatal hernia HTN (hypertension) Hyperlipidemia Hypothyroidism Morbid obesity (HCC) STEPHANIE on CPAP Osteoporosis Prediabetes RA (rheumatoid arthritis) ([facility]) neg RF and CCP on 03/09/15 Restless leg syndrome Stroke ([facility]) Vitamin D deficiency MENTAL HEALTH INTERVENTIONS: Maintain medications at current doses -Continue Remeron 7.5 mg at bedtime to stimulate sleep and appetite. -Continue Klonopin to 0.5 mg po BID prn for anxiety (45 tablets for 30 days) -Continue Effexor XR to 150 mg daily for mood and anxiety. - encouraged participation in psychotherapy - Referral for counseling Risk and benefit of medications discussed Encouraged to make phone calls with concerns Availability of ED after clinic hours discussed Informed consent was taking along with risk, benefit and alternatives of medications were discussedwith patient PATIENT RESPONSE TO INTERVENTIONS: Verbalized information correctly Verbalizes understanding CHANGES TO TREATMENT PLAN: None needed at this time. Have you had any change in the condition of your health?No Have you had a visit with a primary care provider in the past 12 months?Yes PATIENT EDUCATION ON CURRENT PROTOCOL: RISKS AND BENEFITS OF MEDICATIONS DISCUSSED: Yes ENCOURAGED TO MAKE PHONE CALLS WITH CONCERNS: Yes AVAILABILITY OF ED AFTER CLINIC HOURS DISCUSSED: Yes FOLLOW-UP PLAN: Is the patient on two or more psychotropic medications in the same class? No Follow up required to prevent relapse: Yes Follow up: 6 weeks Problems being treated are amenable to intervention: Yes Pharmacological Management appointment: Patient to schedule A&P discussed with psychiatry attending Dr. Jerry Montelongo M.D. Admissions Specialist PGY-3 Teaching Physician Note: I saw and evaluated the patient. I personally obtained the keith and critical portions of the historyand physical exam. I reviewed the resident's documentation and discussed the patient with the resident. I agree with the resident's medical decision making as documented in the resident's note. Minnie Edwards MD documented in this [id number] Nurse Note* Andria Zepeda Carrie FRANCO - 01/30/2022 6:44 PM EDT Images from the original note were not included. Patient Outreach 01/24/2022 Internal Medicine Aiyana Montanez MD Internal Medicine Transition Of Care Reason for Visit Progress Notes Nohemy Peterson LPN TRANSITION CARE MANAGEMENT (TCM) INITIAL CONTACT [employer] Outreach Provider Action/FYI: TCM Initial contact with patient post discharge, spoke to patient. Patient identified by name and . TRANSITION CARE MANAGEMENT INITIAL OUTREACH DOCUMENTATION: Date of Outreach: 01/24/2022 Outreach Attempt 1: Contact Made Date of Discharge 01/19/2022 Some recent data might be hidden SUMMARY: -Pt discharged from [facility] on 01/19/22. -Admitted for: fall with head injury Do you have a hospital follow up appointment with your PCP? Appointment on 01/30/22 with pcp. Yes. Remind patient of appointment date, time, and location. If not within 14 calendar days of discharge - please reschedule accordingly. MEDICATIONS: Many patients have questions or concerns about their medications once they are home. Were you prescribed any new medications? If yes, what are those medications? Pantoprazole 20 mg one by mouth twice daily. Ferrous sulfate 325 mg one by mouth three times daily. eliquis 5 mg one by mouth twice daily. Ascorbic acid 500mg one by mouth twice daily Pt says she has not picked these up yest due to transportation Were you told to hold any medications? No Were any of your medications discontinued? No Do you have any questions about getting or taking your medications? No Your discharge instructions/After visit Summary (AVS) are important in guiding you through the recovery process. Is there anything I might help you understand? No Do you have all the necessary equipment and supplies at home? Yes Medical records from recent hospitalization: Placed for provider to review Pt did ask about refill of klonopin. In review it appears pt gets this from [facility]. Itwas recommended she contact them for this refill. Note Details Additional Documentation Flowsheets: Transitional Care Management Encounter Info: Billing Info, History, Allergies, Detailed Report Pharmacy Benefits No pharmacy benefits on file. Travel Screening and History No documentation. Orders Placed None Medication Changes None Medication List Visit Diagnoses None Problem List documented in this encounterBl[facility] History of Present illness Narrative* Alvarez Montanez MD - 01/30/2022 6:43 PM EDT This note was created using [employer]. Subjective Transitional Care Management Progress Note The patients TCM visit was performed within the 14 days of discharge. Patient's Date of discharge: 01/19/2022 Date of initial coordinator contact after discharge: 01/24/2022 Discharge diagnosis: suspected concussion, falls frequently, failure to thrive, acute on chronic anemia, CHF, HTN, Parkinson's. Medication review completed Yes Provider Documentation: In follow-up of hospitalization, Felisha Perrin is a 56 year old female with the chief complaint of transition of care. I have reviewed the patient s last hospital course including diagnostic testing performed during this hospitalization, their discharge medications, and my assessment and plan with the patient and anyfamily members present at today s visit. PAST MEDICAL HISTORY: Reviewed and updated ALLERGIES: Reviewed and updated MEDICATIONS: Reviewed and updated SOCIAL HISTORY: Reviewed and updated Felisha Perrin was here with her sister in law. She was admitted for closed head injury, concussion, recurrent falls, anemia, failure to thrive. She had negative brain CT, CT cervical spine, shoulder, hip and pelvis xrays were negative. She was found to be anemic and transfused 1 unit PRBC and 2 doses of IV iron. Her chronic anticoagulation was changed to apixiban. She was doing better. She requested referral for pain management. Her muscles and joints hurt when having frequent myoclonus. [place] neurology started her on Sinement Review of Systems Constitutional: Negative. HENT: Positive for nosebleeds. Eyes: Negative for pain, discharge and visual disturbance. Respiratory: Negative for cough and shortness of breath. Cardiovascular: Negative for chest pain, palpitations and leg swelling. Gastrointestinal: Negative for abdominal pain, constipation and diarrhea. Genitourinary: Negative. Musculoskeletal: Positive for arthralgias and myalgias. Neurological: Positive for tremors and weakness. Negative for seizures, speech difficulty and headaches. 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 ipratropium-albuterol (DUONEB) 0.5 mg-3 mg(2.5 mg base)/3 mL nebu INHALE 1 VIAL VIA NEBULIZER EVERY4 HOURS NEEDED rivaroxaban (XARELTO) 20 mg tablet Take 1 tablet by mouth daily with dinner. losartan (COZAAR) 100 mg tablet Take 1 tablet by mouth once daily. omeprazole (PRILOSEC) 40 mg capsule Take 1 capsule by mouth once daily. atorvastatin (LIPITOR) 80 mg tablet Take 1 tablet by mouth once daily. furosemide (LASIX) 20 mg tablet Take 1 tablet by mouth once daily. spironolactone (ALDACTONE) 50 mg tablet Take 1 tablet by mouth once daily. metoprolol succinate ER (TOPROL XL) 100 mg Take 1 tablet by mouth once daily. divalproex ER (DEPAKOTE ER) 250 mg 24 hr tablet Take 1 tablet by mouth twice daily. Per NEUROLOGY. levETIRAcetam (KEPPRA) 500 mg tablet Take 1 tablet by mouth twice daily. Per NEUROLOGY. clonazePAM (KLONOPIN) 0.5 mg tablet Take 1 tablet by mouth twice daily. Per [facility]. Mirtazapine (REMERON) 7.5 mg tablet Take 1 tablet by mouth daily at bedtime. Per [facility]. acetaminophen (TYLENOL EXTRA STRENGTH) 500 mg tablet Take 1,000 mg by mouth every 8 hours as needed. venlafaxine ER (EFFEXOR XR) 75 mg 24 hr capsule Take 75 mg by mouth once daily. Plus 37.5 mg capsule. [facility]. venlafaxine ER (EFFEXOR XR) 37.5 mg 24 hr capsule Take 37.5 mg by mouth once daily. Plus 75 mg capsule. [facility]. mometasone (ELOCON) 0.1 % cream APPLY 1 APPLICATION TO AFFECTED AREA ONCE DAILY NEEDED FOR FACIAL RASH. AVOID EYES NOSE MOUTH COMPOUNDED PRESCRIPTION PORTABLE OXYGEN VIA NASAL CANNULA. 2 LPM FOR USE WITH EXERTION, ACTIVITY. Dx:R09.02; J44.9; J98.4 iv contrast (will be provided with radiology test) CT Urogram WO/W Inject, intravenously, once for 1 dose.No IV access, insert saline lock prior to the beginning of sedation, infusion, injection of imaging exam. Discontinue saline lock post exam. If Pt. has a central line or IVAD, may access for administration according to line specific nursing protocol. Once exam is complete flush line and de-access according to line specific nursing protocol in the CT contrast administration guidelines link. calcium carbonate (CALCIUM 600 ORAL) Take 1 tablet by mouth once daily. (Patient not taking: Reported on 10/18/2021 ) No current facility-administered medications for this visit. Objective BP 130/82 (BP Site: Left Arm, BP Position: Sitting, BP Cuff Size: Large Adult) Pulse 80 Temp (!) 35.8 C (96.5 F) (Temporal Artery) Resp 20 SpO2 100% Physical Exam Constitutional: General: She is not in acute distress. Comments: On portable O2 via NC. HENT: Right Ear: Tympanic membrane normal. Left Ear: Tympanic membrane normal. Nose: Nose normal. Mouth/Throat: Mouth: Mucous membranes are moist. Pharynx: Oropharynx is clear. Eyes: Extraocular Movements: Extraocular movements intact. Right eye: Normal extraocular motion. Left eye: Normal extraocular motion. Comments: Right eye periorbital ecchymosis. Cardiovascular: Rate and Rhythm: Normal rate and regular rhythm. Heart sounds: No murmur heard. No gallop. Pulmonary: Effort: Pulmonary effort is normal. Breath sounds: Normal breath sounds. Abdominal: Palpations: Abdomen is soft. Lymphadenopathy: Cervical: No cervical adenopathy. Neurological: General: No focal deficit present. Mental Status: She is alert. Motor: No weakness. Comments: Wheelchair bound. Gait not tested due risk of falls. Generalized involuntary jerks. Assessment and Plan 1. Closed head injury, sequela - ICD9: 908.9, ICD10: S09.90XS (primary diagnosis) Fall precautions. She declined SNF. She applied for [facility] but was rejected due to co-morbidities. 2. Concussion without loss of consciousness, sequela (HCC) - ICD9: 907.0, ICD10: S06.0X0S Continue symptom control. Follow up with neurology. 3. Anemia due to blood loss - ICD9: 280.0, ICD10: D50.0 Recheck. - CBC 4. Arvind-Christine syndrome with action induced myoclonus - ICD9: 333.2, ICD10: G25.3, Z86.74 Improving on Sinemet. 5. Failure to thrive in adult - ICD9: 783.7, ICD10: R62.7 See above. 6. Falls frequently - ICD9: V15.88, ICD10: R29.6 See above. 7. Epistaxis - ICD9: 784.7, ICD10: R04.0 Intermittent but profuse. Call for ENT if worse. 8. Chronic pain syndrome - ICD9: 338.4, ICD10: G89.4 We discussed and agreed to palliative care consult. - CONSULT TO NON-[facility]F FACILITY 9. Chronic respiratory failure with hypoxia (HCC) - ICD9: 518.83, 799.02, ICD10: J96.11 Stable. Alvarez Montanez MD documented in this encounterBl[facility] History of Present illness Narrative* Nohemy Peterson JOAN - 01/24/2022 3:14 PM EDT TRANSITION CARE MANAGEMENT (TCM) INITIAL CONTACT [employer] Outreach Provider Action/FYI: TCM Initial contact with patient post discharge, spoke to patient. Patient identified by name and . TRANSITION CARE MANAGEMENT INITIAL OUTREACH DOCUMENTATION: Date of Outreach: 01/24/2022 Outreach Attempt 1: Contact Made Date of Discharge 01/19/2022 Some recent data might be hidden SUMMARY: -Pt discharged from [facility] on 01/19/22. -Admitted for: fall with head injury Do you have a hospital follow up appointment with your PCP? Appointment on 01/30/22 with pcp. Yes. Remind patient of appointment date, time, and location. If not within 14 calendar days of discharge - please reschedule accordingly. MEDICATIONS: Many patients have questions or concerns about their medications once they are home. Were you prescribed any new medications? If yes, what are those medications? Pantoprazole 20 mg one by mouth twice daily. Ferrous sulfate 325 mg one by mouth three times daily. eliquis 5 mg one by mouth twice daily. Ascorbic acid 500mg one by mouth twice daily Pt says she has not picked these up yest due to transportation Were you told to hold any medications? No Were any of your medications discontinued? No Do you have any questions about getting or taking your medications? No Your discharge instructions/After visit Summary (AVS) are important in guiding you through the recovery process. Is there anything I might help you understand? No Do you have all the necessary equipment and supplies at home? Yes Medical records from recent hospitalization: Placed for provider to review Pt did ask about refill of klonopin. In review it appears pt gets this from [facility]. Itwas recommended she contact them for this refill. documented in this [facility]Bl[facility] Miscellaneous Notes* Telephone Encounter - Chase Rosenthal Ma - 01/18/2022 4:33 PM EDT Faxed as requested. Chase Rosenthal Ma * Telephone Encounter - Sofia Holloway - 01/18/2022 10:01 AM EDT [facility]. A number of meds they have on file do not appear on patient's current meds. documented in this encounterBlanch[facility]06[facility] History of Present illness Narrative* Juan Marti RN - 01/17/2022 12:28 PM EDT INSIGHT CD TELEPHONIC OUTREACH Provider Action/FYI: 01/15/22 [facility] ED Flank Pain 01/16/22 Called Pt left a message to verify symptom status and request Pt schedule ED follow up withPCP/ ANIMAL SHELTER MANAGER. Contact made with patient: No - Left message Maryellen my name is Demario Martinez RN your Fermentation Engineer from the [facility] I am callingtoday for your bi-weekly check in. I am sorry I missed your call. I will reach out to you again tomorrow. (if the third call I will reach out to you again next week) Enter next patient outreach date for the following business day using the Track Pt Outreach. End outreach. Demario Martinez RN January 17, 2022 12:28 PM * Juan Marti RN - 01/16/2022 2:07 PM EDT inSight CD Engagement Provider Action/FYI: 01/15/22 [facility] ED Flank Pain 01/16/22 Called Pt left a message to verify symptom status and request Pt schedule ED follow up withPCP/ ANIMAL SHELTER MANAGER. Contact Made with Patient: No, first attempt, left message. Maryellen Perrin. This is Demario Martinez RN your Fermentation Engineer from the [facility]. I am calling to check in with you concerning the MyChart questionnaire you have been receiving from me. I will call you again tomorrow and am looking forward to speaking with you. (Fermentation Engineer enters next day in next patient outreach) Demario Martinez RN January 16, 2022 2:07 PM documented in this encounterBlanchard Valley [facility]06-23-[facility]22 Telephone encounter Note * Telephone Encounter - Faisal Witt - 01/12/2022 3:12 PM EDT Last visit with Psychiatry (TracydenisJudy brown) was on 11/02/21 Next visit with Psychiatry (Tom Montelongo) is scheduled for 02/08/22 Requested Prescriptions Pending Prescriptions Disp Refills venlafaxine (EFFEXOR XR) 150 MG ER capsule [Pharmacy Med Name: VENLAFAXINE ER 150MG CAP 150 Capsule] 30 Capsule 2 Sig: TAKE 1 CAPSULE BY MOUTH ONCE DAILY No prior visit found with PCP (NAS BOOGIE) No future appointment with PCP (NAS BOOGIE) [id number] Miscellaneous Notes* Telephone Encounter - Faisal Witt - 01/12/2022 3:12 PM EDT Last visit with Psychiatry (TracyyajairaJudy guerra) was on 11/02/21 Next visit with Psychiatry (Tom Montelongo) is scheduled for 02/08/22 Requested Prescriptions Pending Prescriptions Disp Refills venlafaxine (EFFEXOR XR) 150 MG ER capsule [Pharmacy Med Name: VENLAFAXINE ER 150MG CAP 150 Capsule] 30 Capsule 2 Sig: TAKE 1 CAPSULE BY MOUTH ONCE DAILY No prior visit found with PCP (NAS BOOGIE) No future appointment with PCP (NAS BOOGIE) documented in this [id number] History of Present illness Narrative* Juan Marti RN - 12/26/2021 4:09 PM EDT inSight CDM Engagement Provider Action/FYI: Routed updates to Dr. Tarik Chadwick with Pt she was seen 12/14/21 at [facility] ED for a UTI, treated with ATB, Pt denies fever or chills, denies blood in her urine or dysuria, Pt reports she is hydrating well, denies needs or concerns. Instructed on the importance of PCP/ANIMAL SHELTER MANAGER follow up, Pt verbalized understanding. Contact Made with Patient: Yes Patient identified by name and . Discussed care with patient Maryellen chapman name is Demario Martinez RN your Fermentation Engineer from [facility] I am reaching out today because I noticed it has been a few weeks since I have seen any responses from you on your questionnaire. I wanted to check on you and make sure you are doing well, and to remind you that your Alvarez Montanez MD recommended this program for you so that you can stay better connected to your health. I will be monitoring your responses on the questionnaire to make sure we are not seeing any changes in your health that your Primary Care Physician needs to know about, or looking for improvements and keeping Alvarez Montanez MD informed about it all. You and I will check in together anytime a problem arises, and determine a solution. I am here to help you stay healthy, and stay connected to your doctor's office. How can I help you in this program? The patient informs that she forgot. Please take some time today to answer the questionnaire. I am looking forward to receiving your answers. If I do not receive your answers in the next 2 business days I will check back in. ---END CALL Demario Martinez RN December 26, 2021 4:09 PM documented in this encounterBlanchard Valley Health [facility]05-04-20[facility] History of Present illness Narrative* Juan Marti RN - 11/23/2021 4:22 PM EDT inSight CDM Engagement Provider Action/FYI: Routed updates to Dr. Montanez Spsidney with Pt who reports was seen at [facility] ED for a break through seizure, denies missed doses of Keppra, or Depakote ER Pt reported CT of Head Negative for bleeding. Pt denies having any seizure activity Instructed to schedule Appt with PCP/ ANIMAL SHELTER MANAGER for ED follow up, Pt verbalized understanding. Previous UTI symptoms resolved. Denies new or worsening COPD symptoms Pt denies needs or concerns. Contact Made with Patient: Yes Patient identified by name and . Discussed care with patient Maryellen chapman name is Demario Martinez RN your Fermentation Engineer from [facility] I am reaching out today because I noticed it has been a few weeks since I have seen any responses from you on your questionnaire. I wanted to check on you and make sure you are doing well, and to remind you that your Alvarez Montanez MD recommended this program for you so that you can stay better connected to your health. I will be monitoring your responses on the questionnaire to make sure we are not seeing any changes in your health that your Primary Care Physician needs to know about, or looking for improvements and keeping Alvarez Montanez MD informed about it all. You and I will check in together anytime a problem arises, and determine a solution. I am here to help you stay healthy, and stay connected to your doctor's office. How can I help you in this program? The patient informs that she forgot. Please take some time today to answer the questionnaire. I am looking forward to receiving your answers. If I do not receive your answers in the next 2 business days I will check back in. ---END CALL Demario Martinez RN November 23, 2021 4:22 PM documented in this encounterBlanchard Valley [facility]04-07-2022 Miscellaneous Notes* Telephone Encounter - Abbi Felix - 10/27/2021 1:34 PM EDT Pt notified urine cytology negative. CT results as stated below. Pt to keep cystoscopy appt as scheduled. Pt verbalized understanding. Abbi Felix * Telephone Encounter - Chilo Matthew PA-C - 10/26/2021 5:21 PM EDT Please let patient know there are renal cysts that are benign no other findings on CT Urogram CT Urogram IMPRESSION: Findings suspicious for bilateral renal cysts, as described. No acute process is seen. ROBIN PazGORAN PA-C documented in this encounterBlanchard Valley [facility]04-06-2022 History of Present illness Narrative* Stephanie Quiñones RT(R) - 10/26/2021 3:00 PM EDT Radiology Service Progress Note DATE OF SERVICE: October 26, 2021 TIME: 3:55 PM PATIENT IDENTITY VERIFICATION COMPLETED USING TWO (2) STANDARD IDENTIFIERS: Name and Date of confirmed by patient verbally. FALL SCREENING: Has the patient had 2 falls in the last year or 1 fall with injury or currently using an Ambulatory Assistive Device (Walker, Cane, Wheelchair, Crutches, etc.)? No PATIENT GENDER DATA: Female. status: : No status: NO. PATIENT RELEVANT IMPLANT DATA REVIEWED: Yes ALLERGIES: Reviewed and unchanged CONTRAST ALLERGY: NO. EXAM: CT -CONTRAST INDUCED NEPHROPATHY RISK FACTORS: Patient age > 60 years CREATININE: Creatinine Date Value Ref Range Status 08/22/2021 0.67 0.58 - 0.96 mg/dL Final 11/23/2020 0.86 0.58 - 0.96 mg/dL Final 05/12/2019 0.85 0.58 - 0.96 mg/dL Final eGFR-All Other Races Date Value Ref Range Status 08/22/2021 >60 . Final Comment: eGFR (Estimated GFR) Units of measure: mL/min/1.73 meters squared eGFR is derived from the reexpressed MDRD Study equation using the following parameters: serum creatinine, age, gender and race. The creatinine assay has been calibrated to be traceable to IDMS. An eGFR <60 mL/min/1.73m2 for >3 months is consistent with chronic kidney disease. Refer to KDOQI guidelines for clinical interpretation. In patients with unstable renal function, e.g. those with acute kidney injury, the eGFR may not accurately reflect actual GFR. Note: On 09/17/2021, the eGFR calculation will be updated to the NKF-ASN Task Force recommended 2020 CKD-EPI creatinine equation which does not include a race variable. For more information or to access a 2020 CKD-EPI calculator, visit the National Kidney Foundation website at kidney.org/professionals/kdoqi/gfr_calculator. eGFR- Date Value Ref Range Status 08/22/2021 >60 Final P.O.C.T. RESULTS: POC done: Yes, See Lab Tab October 26, 2021 TREATMENT: N/A PERIPHERAL IV DATA: Ambulatory: A peripheral IV was started in the Right hand with a Angio cath: 22gauge. RADIOLOGY DEPARTMENT: CT; Exam(s) Completed: Abdomen/Pelvis SIGNATURE: RT Shanita(R) PATIENT NAME: Felisha Perrin DATE: October 26, 2021 TIME: 3:55 PM documented in this encounterBlanchard Valley [facility]04-04-2022 Miscellaneous Notes* Telephone Encounter - Nohemy Peterson LPN - 10/24/2021 2:49 PM EDT Last appt with pcp 08/22/21. Next is arranged 02/20/22. * Telephone Encounter - Mckenna Thomas - 10/24/2021 10:59 AM EDT Patient has been identified by name and date of : Yes Pending Prescriptions Disp Refills ALBUTEROL SULFATE HFA 90 MCG/ACTUATION AEROSOL INHALER 18 g 1 Sig: INHALE 2 PUFFS BY MOUTH THREE TIMES A DAY NEEDED FOR SHORTNESS OF BREATH/WHEEZING/COUGH KAREN: No MOMETASONE-FORMOTEROL HFA 100 MCG-5 MCG/ACTUATION AEROSOL INHALER 13 g 1 Sig: Inhale 2 Puffs as instructed twice daily. KAREN: No IPRATROPIUM 0.5 MG-ALBUTEROL 3 MG (2.5 MG BASE)/3 ML NEBULIZATION SOLN 100 Vial 1 Sig: INHALE 1 VIAL VIA NEBULIZER EVERY 4 HOURS NEEDED KAREN: No RX INSTRUCTIONS: Patient aware RX will be sent to pharmacy. No need to notify patient. Mckenna Thomas documented in this encounterBlanchard Valley [facility]03-29-2022 Miscellaneous Notes* Telephone Encounter - Yari Crockett - 10/18/2021 2:15 PM EDT Left vm pt scheduled with Dr. Pereyra in [place] of[place] 11/02/21 @ 2:[address] prior 10/19/21. [place] documented in this encounterBlanchard Valley Health System [facility]03-29-2022 Miscellaneous Notes* Addendum Note - Chilo Matthew PA-C - 10/18/2021 1:50 PM EDT Addended by: CHILO MATTHEW on: 10/18/2021 01:50 PM Modules accepted: Orders documented in this encounterBlanchard Valley Health System [facility]03-29-2022 History of Present illness Narrative* Chilo Matthew PA-C - 10/18/2021 1:27 PM EDT Images from the original note were not included. [facility] PATIENT INFO: Felisha Perrin 53 year old [facility] # [id number] PCP: Alvarez Montanez MD Referred by: Alvarez Montanez MD Consult: A consultation requested by Alvarez Montanez MD, for an opinion regarding Left Renal Mass My final recommendations communicated back to the requesting physician by way of shared Medical record. CHIEF COMPLAINT: Left Renal Mass HPI: This is a 53 year old female, who has Left Renal Mass, which started in 2019, and involves the Kidney Patient states this mild in severity and mild in quality, and is happening N/A Aggravating factors: No , Alleviating Factors: No . And the patient denies having Fever, Chills, Nausea and Vomiting VOIDING SYMPTOMS: NTF: 2 Times DTF: Q 2 HOURS FOS: Average Hesitancy: No Straining: No Intermittency: No Urgency: Yes Frequency: Yes Dysuria: No Gross Hematuria: No U/A Dipstick Positive Blood - Only No Incomplete Voiding: Yes Double Voiding: No Post Void Dribbling: No Incontinence: Yes REVIEW OF SYSTEMS: General: General: Well developed, well nourished. No acute distress HEENT: Negative for sore throat, difficulty swallowing. Negative for frequent or significant headaches, changes in vision or hearing. Cardiovascular: Positive: Hypertension Respiratory: Positive: Dyspnea and Severe COPD Gastrointestinal: No history of GERD, PUD, abd pain, difficulty swallowing, GI bleed. Renal: Postive: Cysts Musculoskeletal: Negative for joint pain or swelling, back pain or muscle pain. Skin: Negative for lesions, rash and itching. Psychological: No history of psychiatric symptoms or problems. 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 No neurological symptoms or problems. Hematology/Oncology: No history of bleeding or clotting disorder. Pt is not taking anti-coagulationor platelet medications. No history of hematological symptoms or problems. Endocrine: No history of endocrinological symtoms or problems No history of DM; has not taken steroids w/in past 30 days. Negative for excessive sweating, thirst or hunger PHYSICAL EXAM: Blood pressure 98/70, pulse 66, temperature 36.1 C (96.9 F), temperature source Temporal, resp. rate 14, height 167.6 cm (5' 6), weight 113.4 kg (250 lb), SpO2 99 %. General Appearance/ Constitutional: Well developed, well nourished, and in no apparent distress Head and Neck normal, no jugular venous extension, no thyromegaly and no palpable mass Eyes: Pupils are equally round and reactive to light. Extraocular movements are intact. Respiratory: Clear to auscultation & percussion Cardiovascular: Normal, Regular rate and rhythm and No murmurs GI: Soft, Non-tender, No masses, hepatosplenomegaly and No lymphadenopathy Extremities: Radial and pedal pulses +2, no edema, extremities WNL Back: Normal back and mobility Neurological: Normal cognition and motor skills. Skin: Color, texture, turgor normal. ADDITIONAL DATA REVIEWED: Most recent imaging Most recent labs Results for orders placed or performed in visit on 08/29/21 PT ED [facility] Result Value Ref Range Scagliola Mechanic Provider JAVAN your patient FELISHA PERRIN has NOT started their Curtis program, time has . Curtis program: BREAST BIOPSY: IMAGE-GUIDED NEEDLE (FNA OR CORE) PT ED PATIENT INFORMATION Result Value Ref Range Scagliola Mechanic Provider JAVAN your patient FELISHA PERRIN has NOT started their Curtis program, time has . Curtis program: PATIENT SAFETY AND FALL PREVENTION Urine Microscopic 0 RBC's /hpf RADIOLOGY: CT Urogram IMPRESSION: 1. Simple cyst in the upper pole of the left kidney 2. Subcentimeter low-density lesions in both kidneys which are too small to characterize, but statistically more likely benign 3. No enhancing renal or bladder mass 4. No acute pathology IMPRESSION / PLAN: > History of Simple cyst in the upper pole of the left kidney > Follow up in 2 years with Renal US I spent approximately 40 minutes in this visit, with more than 50% of the time devoted to patient discussion, counseling, review of records and/or coordination of care. ROBIN Paz MT, PA-C ' * Stephanie Rodarte LPN - 10/18/2021 1:20 PM EDT HPI: Felisha Perrin is a 55 year old female. The patient is here now for an appointment with ROBIN Paz MT, PA-COV. Procedure: Explained procedure to patient and verbalizes understanding. Performed a scan to test for urine retention. Patient attempted to urinated but unable to. Results of scan: 0 mL The patient tolerated the procedure well. Plan: Appointment with Chilo. documented in this encounterBlanchard Valley Health System [facility]03-24-2022 Miscellaneous Notes* Telephone Encounter - Alvarez Montanez MD - 10/13/2021 1:22 PM EDT Noted. * Telephone Encounter - Melina Pineda RN - 10/13/2021 11:30 AM EDT Bita- PT- [facility]- reports they are discharging patient today from PT. Reports patient has reached maximum potential. documented in this encounterBlanchard Valley Health System [facility]12-08-2021 Miscellaneous Notes* Telephone Encounter - Andria Butler LPN - 06/29/2021 1:54 PM EST Left message to call & reschedule missed appt. Andria Butler LPN * Telephone Encounter - Alvarez Montanez MD - 06/25/2021 9:24 AM EST Noted. Patient hester no follow up scheduled after cancellations/no shows. Schedule follow up. * Telephone Encounter - Melina Pineda RN - 06/22/2021 4:53 PM EST [id number] reports she saw patient yesterday for PT re-eval and will continue to follow for strengthening, balance, and safety 2 x a week for 4 weeks. Starting SundayJune 26. Reports patient is still having full body tremors and falls on a daily basis. PT is trying to get patient tostay in wheelchair. Reports patient flipped out of wheelchair the other night trying to get her dog. Reports patient is difficult to gait train. documented in this encounterBlanchard Valley Health System [facility]08-05-2021 NoteHNO ID: [id number] Author: RT Maria Isabel(R) Service: ? Author Type: Instant Potato Processing Supervisor Type: Progress Notes Filed: 02/24/2021 8:37 AM Note Text: Radiology Service Progress Note PATIENT NAME: Felisha Perrin DATE OF SERVICE: February 24, 2021 TIME: 8:36 AM PATIENT IDENTITY VERIFICATION COMPLETED USING TWO (2) IDENTIFIERS: Name and Date of confirmed by patient verbally. FALL SCREENING: Has the patient had 2 falls in the last year or 1 fall with injury or currently using an Ambulatory Assistive Device (Walker, Cane, Wheelchair, Crutches, etc.)? No PATIENT GENDER DATA: Female. status: : No status: NO. PATIENT RELEVANT IMPLANT DATA REVIEWED: Not Applicable RADIOLOGY DEPARTMENT: Ultrasound PERIPHERAL IV DATA: Not applicable SIGNED BY: RT Maria Isabel(R) February 24, 2021 8:36 [facility]08-05-2021 NoteHNO ID: [id number] Author: RT Cathryn(Noreen) Service: ? Author Type: Instant Potato Processing Supervisor Type: Progress Notes Filed: 02/24/2021 10:01 AM Note Text: Radiology Service Progress Note PATIENT NAME: Felisha Perrin DATE OF SERVICE: February 24, 2021 TIME: 10:00 AM PATIENT IDENTITY VERIFICATION COMPLETED USING TWO (2) IDENTIFIERS: Name and Date of confirmed by patient verbally. FALL SCREENING: Has the patient had 2 falls in the last year or 1 fall with injury or currently using an Ambulatory Assistive Device (Walker, Cane, Wheelchair, Crutches, etc.)? No PATIENT GENDER DATA: Female. status: : No status: NO. PATIENT RELEVANT IMPLANT DATA REVIEWED: Not Applicable RADIOLOGY DEPARTMENT: Mammography PERIPHERAL IV DATA: Not applicable SIGNED BY: RT Cathryn(R) February 24, 2021 10:00 [facility]06-21-2021 History of Past illness Narrative* Problem Noted Date Resolved Date Abnormal mammogram 01/10/2021 05/05/2021 Acquired renal cyst 09/03/2018 05/05/2021 Colonic mass 03/02/2017 09/26/2017 Overview: Added automatically from request for surgery [id number] Pulmonary embolism 01/17/2016 05/28/2017 Hypoxemia 01/17/2016 09/26/2017 Prediabetes 12/21/2015 09/03/2018 Severe ankle sprain 09/16/2015 05/07/2017 Abdominal pain 04/03/2012 07/07/2015 UTI (urinary tract infection) 04/03/2012 Stroke 04/03/2012 12/21/2015 Obesity 04/03/2012 07/07/2015 HTN (hypertension) 04/03/2012 09/03/2018 Morbid obesity 09/03/2018 Hypothyroidism 09/03/2018 Unilateral emphysema 12/21/2015 Hypertension 07/07/2015 Asthma 09/26/2017 Ulcer of the stomach and intestine 12/21/2015 Stroke (cerebrum) 07/07/2015 documented as of this encounter (statuses as of 10/13/2021) [facility] History of Past illness Narrative* Problem Noted Date Resolved Date Abnormal mammogram 01/10/2021 05/05/2021 Acquired renal cyst 09/03/2018 05/05/2021 Colonic mass 03/02/2017 09/26/2017 Overview: Added automatically from request for surgery [id number] Pulmonary embolism 01/17/2016 05/28/2017 Hypoxemia 01/17/2016 09/26/2017 Prediabetes 12/21/2015 09/03/2018 Severe ankle sprain 09/16/2015 05/07/2017 Abdominal pain 04/03/2012 07/07/2015 UTI (urinary tract infection) 04/03/2012 Stroke 04/03/2012 12/21/2015 Obesity 04/03/2012 07/07/2015 HTN (hypertension) 04/03/2012 09/03/2018 Morbid obesity 09/03/2018 Hypothyroidism 09/03/2018 Unilateral emphysema 12/21/2015 Hypertension 07/07/2015 Asthma 09/26/2017 Ulcer of the stomach and intestine 12/21/2015 Stroke (cerebrum) 07/07/2015 documented as of this encounter (statuses as of 10/18/2021) [facility] of Past illness Narrative* Problem Noted Date Resolved Date Abnormal mammogram 01/10/2021 05/05/2021 Acquired renal cyst 09/03/2018 05/05/2021 Colonic mass 03/02/2017 09/26/2017 Overview: Added automatically from request for surgery [id number] Pulmonary embolism 01/17/2016 05/28/2017 Hypoxemia 01/17/2016 09/26/2017 Prediabetes 12/21/2015 09/03/2018 Severe ankle sprain 09/16/2015 05/07/2017 Abdominal pain 04/03/2012 07/07/2015 UTI (urinary tract infection) 04/03/2012 Stroke 04/03/2012 12/21/2015 Obesity 04/03/2012 07/07/2015 HTN (hypertension) 04/03/2012 09/03/2018 Morbid obesity 09/03/2018 Hypothyroidism 09/03/2018 Unilateral emphysema 12/21/2015 Hypertension 07/07/2015 Asthma 09/26/2017 Ulcer of the stomach and intestine 12/21/2015 Stroke (cerebrum) 07/07/2015 documented as of this encounter (statuses as of 10/18/2021) [facility] of Past illness Narrative* Problem Noted Date Resolved Date Abnormal mammogram 01/10/2021 05/05/2021 Acquired renal cyst 09/03/2018 05/05/2021 Colonic mass 03/02/2017 09/26/2017 Overview: Added automatically from request for surgery [id number] Pulmonary embolism 01/17/2016 05/28/2017 Hypoxemia 01/17/2016 09/26/2017 Prediabetes 12/21/2015 09/03/2018 Severe ankle sprain 09/16/2015 05/07/2017 Abdominal pain 04/03/2012 07/07/2015 UTI (urinary tract infection) 04/03/2012 Stroke 04/03/2012 12/21/2015 Obesity 04/03/2012 07/07/2015 HTN (hypertension) 04/03/2012 09/03/2018 Morbid obesity 09/03/2018 Hypothyroidism 09/03/2018 Unilateral emphysema 12/21/2015 Hypertension 07/07/2015 Asthma 09/26/2017 Ulcer of the stomach and intestine 12/21/2015 Stroke (cerebrum) 07/07/2015 documented as of this encounter (statuses as of 10/24/2021) [facility] of Past illness Narrative* Problem Noted Date Resolved Date Abnormal mammogram 01/10/2021 05/05/2021 Acquired renal cyst 09/03/2018 05/05/2021 Colonic mass 03/02/2017 09/26/2017 Overview: Added automatically from request for surgery [id number] Pulmonary embolism 01/17/2016 05/28/2017 Hypoxemia 01/17/2016 09/26/2017 Prediabetes 12/21/2015 09/03/2018 Severe ankle sprain 09/16/2015 05/07/2017 Abdominal pain 04/03/2012 07/07/2015 UTI (urinary tract infection) 04/03/2012 Stroke 04/03/2012 12/21/2015 Obesity 04/03/2012 07/07/2015 HTN (hypertension) 04/03/2012 09/03/2018 Morbid obesity 09/03/2018 Hypothyroidism 09/03/2018 Unilateral emphysema 12/21/2015 Hypertension 07/07/2015 Asthma 09/26/2017 Ulcer of the stomach and intestine 12/21/2015 Stroke (cerebrum) 07/07/2015 documented as of this encounter (statuses as of 10/27/2021) [facility] History of Past illness Narrative* Problem Noted Date Resolved Date Abnormal mammogram 01/10/2021 05/05/2021 Acquired renal cyst 09/03/2018 05/05/2021 Colonic mass 03/02/2017 09/26/2017 Overview: Added automatically from request for surgery [id number] Pulmonary embolism 01/17/2016 05/28/2017 Hypoxemia 01/17/2016 09/26/2017 Prediabetes 12/21/2015 09/03/2018 Severe ankle sprain 09/16/2015 05/07/2017 Abdominal pain 04/03/2012 07/07/2015 UTI (urinary tract infection) 04/03/2012 Stroke 04/03/2012 12/21/2015 Obesity 04/03/2012 07/07/2015 HTN (hypertension) 04/03/2012 09/03/2018 Morbid obesity 09/03/2018 Hypothyroidism 09/03/2018 Unilateral emphysema 12/21/2015 Hypertension 07/07/2015 Asthma 09/26/2017 Ulcer of the stomach and intestine 12/21/2015 Stroke (cerebrum) 07/07/2015 documented as of this encounter (statuses as of 10/27/2021) [facility] History of Past illness Narrative* Problem Noted Date Resolved Date Abnormal mammogram 01/10/2021 05/05/2021 Acquired renal cyst 09/03/2018 05/05/2021 Colonic mass 03/02/2017 09/26/2017 Overview: Added automatically from request for surgery [id number] Pulmonary embolism 01/17/2016 05/28/2017 Hypoxemia 01/17/2016 09/26/2017 Prediabetes 12/21/2015 09/03/2018 Severe ankle sprain 09/16/2015 05/07/2017 Abdominal pain 04/03/2012 07/07/2015 UTI (urinary tract infection) 04/03/2012 Stroke 04/03/2012 12/21/2015 Obesity 04/03/2012 07/07/2015 HTN (hypertension) 04/03/2012 09/03/2018 Morbid obesity 09/03/2018 Hypothyroidism 09/03/2018 Unilateral emphysema 12/21/2015 Hypertension 07/07/2015 Asthma 09/26/2017 Ulcer of the stomach and intestine 12/21/2015 Stroke (cerebrum) 07/07/2015 documented as of this encounter (statuses as of 11/16/2021) [facility] History of Past illness Narrative* Problem Noted Date Resolved Date Abnormal mammogram 01/10/2021 05/05/2021 Acquired renal cyst 09/03/2018 05/05/2021 Colonic mass 03/02/2017 09/26/2017 Overview: Added automatically from request for surgery [id number] Pulmonary embolism 01/17/2016 05/28/2017 Hypoxemia 01/17/2016 09/26/2017 Prediabetes 12/21/2015 09/03/2018 Severe ankle sprain 09/16/2015 05/07/2017 Abdominal pain 04/03/2012 07/07/2015 UTI (urinary tract infection) 04/03/2012 Stroke 04/03/2012 12/21/2015 Obesity 04/03/2012 07/07/2015 HTN (hypertension) 04/03/2012 09/03/2018 Morbid obesity 09/03/2018 Hypothyroidism 09/03/2018 Unilateral emphysema 12/21/2015 Hypertension 07/07/2015 Asthma 09/26/2017 Ulcer of the stomach and intestine 12/21/2015 Stroke (cerebrum) 07/07/2015 documented as of this encounter (statuses as of 11/23/2021) [facility] History of Past illness Narrative* Problem Noted Date Resolved Date Abnormal mammogram 01/10/2021 05/05/2021 Acquired renal cyst 09/03/2018 05/05/2021 Colonic mass 03/02/2017 09/26/2017 Overview: Added automatically from request for surgery [id number] Pulmonary embolism 01/17/2016 05/28/2017 Hypoxemia 01/17/2016 09/26/2017 Prediabetes 12/21/2015 09/03/2018 Severe ankle sprain 09/16/2015 05/07/2017 Abdominal pain 04/03/2012 07/07/2015 UTI (urinary tract infection) 04/03/2012 Stroke 04/03/2012 12/21/2015 Obesity 04/03/2012 07/07/2015 HTN (hypertension) 04/03/2012 09/03/2018 Morbid obesity 09/03/2018 Hypothyroidism 09/03/2018 Unilateral emphysema 12/21/2015 Hypertension 07/07/2015 Asthma 09/26/2017 Ulcer of the stomach and intestine 12/21/2015 Stroke (cerebrum) 07/07/2015 documented as of this encounter (statuses as of 12/26/2021) [facility] History of Past illness Narrative* Problem Noted Date Resolved Date Abnormal mammogram 01/10/2021 05/05/2021 Acquired renal cyst 09/03/2018 05/05/2021 Colonic mass 03/02/2017 09/26/2017 Overview: Added automatically from request for surgery [id number] Pulmonary embolism 01/17/2016 05/28/2017 Hypoxemia 01/17/2016 09/26/2017 Prediabetes 12/21/2015 09/03/2018 Severe ankle sprain 09/16/2015 05/07/2017 Abdominal pain 04/03/2012 07/07/2015 UTI (urinary tract infection) 04/03/2012 Stroke 04/03/2012 12/21/2015 Obesity 04/03/2012 07/07/2015 HTN (hypertension) 04/03/2012 09/03/2018 Morbid obesity 09/03/2018 Hypothyroidism 09/03/2018 Unilateral emphysema 12/21/2015 Hypertension 07/07/2015 Asthma 09/26/2017 Ulcer of the stomach and intestine 12/21/2015 Stroke (cerebrum) 07/07/2015 documented as of this encounter (statuses as of 01/17/2022) [facility] History of Past illness Narrative* Problem Noted Date Resolved Date Abnormal mammogram 01/10/2021 05/05/2021 Acquired renal cyst 09/03/2018 05/05/2021 Colonic mass 03/02/2017 09/26/2017 Overview: Added automatically from request for surgery [id number] Pulmonary embolism 01/17/2016 05/28/2017 Hypoxemia 01/17/2016 09/26/2017 Prediabetes 12/21/2015 09/03/2018 Severe ankle sprain 09/16/2015 05/07/2017 Abdominal pain 04/03/2012 07/07/2015 UTI (urinary tract infection) 04/03/2012 Stroke 04/03/2012 12/21/2015 Obesity 04/03/2012 07/07/2015 HTN (hypertension) 04/03/2012 09/03/2018 Morbid obesity 09/03/2018 Hypothyroidism 09/03/2018 Unilateral emphysema 12/21/2015 Hypertension 07/07/2015 Asthma 09/26/2017 Ulcer of the stomach and intestine 12/21/2015 Stroke (cerebrum) 07/07/2015 documented as of this encounter (statuses as of 01/18/2022) [facility] History of Past illness Narrative* Problem Noted Date Resolved Date Abnormal mammogram 01/10/2021 05/05/2021 Acquired renal cyst 09/03/2018 05/05/2021 Colonic mass 03/02/2017 09/26/2017 Overview: Added automatically from request for surgery [id number] Pulmonary embolism 01/17/2016 05/28/2017 Hypoxemia 01/17/2016 09/26/2017 Prediabetes 12/21/2015 09/03/2018 Severe ankle sprain 09/16/2015 05/07/2017 Abdominal pain 04/03/2012 07/07/2015 UTI (urinary tract infection) 04/03/2012 Stroke 04/03/2012 12/21/2015 Obesity 04/03/2012 07/07/2015 HTN (hypertension) 04/03/2012 09/03/2018 Morbid obesity 09/03/2018 Hypothyroidism 09/03/2018 Unilateral emphysema 12/21/2015 Hypertension 07/07/2015 Asthma 09/26/2017 Ulcer of the stomach and intestine 12/21/2015 Stroke (cerebrum) 07/07/2015 documented as of this encounter (statuses as of 01/24/2022) [facility] History of Past illness Narrative* Problem Noted Date Resolved Date Abnormal mammogram 01/10/2021 05/05/2021 Acquired renal cyst 09/03/2018 05/05/2021 Colonic mass 03/02/2017 09/26/2017 Overview: Added automatically from request for surgery [id number] Pulmonary embolism 01/17/2016 05/28/2017 Hypoxemia 01/17/2016 09/26/2017 Prediabetes 12/21/2015 09/03/2018 Severe ankle sprain 09/16/2015 05/07/2017 Abdominal pain 04/03/2012 07/07/2015 UTI (urinary tract infection) 04/03/2012 Stroke 04/03/2012 12/21/2015 Obesity 04/03/2012 07/07/2015 HTN (hypertension) 04/03/2012 09/03/2018 Morbid obesity 09/03/2018 Hypothyroidism 09/03/2018 Unilateral emphysema 12/21/2015 Hypertension 07/07/2015 Asthma 09/26/2017 Ulcer of the stomach and intestine 12/21/2015 Stroke (cerebrum) 07/07/2015 documented as of this encounter (statuses as of 01/31/2022) [facility] History of Past illness Narrative* Problem Noted Date Resolved Date Abnormal mammogram 01/10/2021 05/05/2021 Acquired renal cyst 09/03/2018 05/05/2021 Colonic mass 03/02/2017 09/26/2017 Overview: Added automatically from request for surgery [id number] Pulmonary embolism 01/17/2016 05/28/2017 Hypoxemia 01/17/2016 09/26/2017 Prediabetes 12/21/2015 09/03/2018 Severe ankle sprain 09/16/2015 05/07/2017 Abdominal pain 04/03/2012 07/07/2015 UTI (urinary tract infection) 04/03/2012 Stroke 04/03/2012 12/21/2015 Obesity 04/03/2012 07/07/2015 HTN (hypertension) 04/03/2012 09/03/2018 Morbid obesity 09/03/2018 Hypothyroidism 09/03/2018 Unilateral emphysema 12/21/2015 Hypertension 07/07/2015 Asthma 09/26/2017 Ulcer of the stomach and intestine 12/21/2015 Stroke (cerebrum) 07/07/2015 documented as of this encounter (statuses as of 02/17/2022) [facility] History of Past illness Narrative* Problem Noted Date Resolved Date Abnormal mammogram 01/10/2021 05/05/2021 Acquired renal cyst 09/03/2018 05/05/2021 Colonic mass 03/02/2017 09/26/2017 Overview: Added automatically from request for surgery [id number] Pulmonary embolism 01/17/2016 05/28/2017 Hypoxemia 01/17/2016 09/26/2017 Prediabetes 12/21/2015 09/03/2018 Severe ankle sprain 09/16/2015 05/07/2017 Abdominal pain 04/03/2012 07/07/2015 UTI (urinary tract infection) 04/03/2012 Stroke 04/03/2012 12/21/2015 Obesity 04/03/2012 07/07/2015 HTN (hypertension) 04/03/2012 09/03/2018 Morbid obesity 09/03/2018 Hypothyroidism 09/03/2018 Unilateral emphysema 12/21/2015 Hypertension 07/07/2015 Asthma 09/26/2017 Ulcer of the stomach and intestine 12/21/2015 Stroke (cerebrum) 07/07/2015 documented as of this encounter (statuses as of 02/20/2022) [facility] History of Past illness Narrative* Problem Noted Date Resolved Date Abnormal mammogram 01/10/2021 05/05/2021 Acquired renal cyst 09/03/2018 05/05/2021 Colonic mass 03/02/2017 09/26/2017 Overview: Added automatically from request for surgery [id number] Pulmonary embolism 01/17/2016 05/28/2017 Hypoxemia 01/17/2016 09/26/2017 Prediabetes 12/21/2015 09/03/2018 Severe ankle sprain 09/16/2015 05/07/2017 Abdominal pain 04/03/2012 07/07/2015 UTI (urinary tract infection) 04/03/2012 Stroke 04/03/2012 12/21/2015 Obesity 04/03/2012 07/07/2015 HTN (hypertension) 04/03/2012 09/03/2018 Morbid obesity 09/03/2018 Hypothyroidism 09/03/2018 Unilateral emphysema 12/21/2015 Hypertension 07/07/2015 Asthma 09/26/2017 Ulcer of the stomach and intestine 12/21/2015 Stroke (cerebrum) 07/07/2015 documented as of this encounter (statuses as of 02/21/2022) [facility] History of Past illness Narrative* Problem Noted Date Resolved Date Abnormal mammogram 01/10/2021 05/05/2021 Acquired renal cyst 09/03/2018 05/05/2021 Colonic mass 03/02/2017 09/26/2017 Overview: Added automatically from request for surgery [id number] Pulmonary embolism 01/17/2016 05/28/2017 Hypoxemia 01/17/2016 09/26/2017 Prediabetes 12/21/2015 09/03/2018 Severe ankle sprain 09/16/2015 05/07/2017 Abdominal pain 04/03/2012 07/07/2015 UTI (urinary tract infection) 04/03/2012 Stroke 04/03/2012 12/21/2015 Obesity 04/03/2012 07/07/2015 HTN (hypertension) 04/03/2012 09/03/2018 Morbid obesity 09/03/2018 Hypothyroidism 09/03/2018 Unilateral emphysema 12/21/2015 Hypertension 07/07/2015 Asthma 09/26/2017 Ulcer of the stomach and intestine 12/21/2015 Stroke (cerebrum) 07/07/2015 documented as of this encounter (statuses as of 02/22/2022) [facility] History of Past illness Narrative* Problem Noted Date Resolved Date Abnormal mammogram 01/10/2021 05/05/2021 Acquired renal cyst 09/03/2018 05/05/2021 Colonic mass 03/02/2017 09/26/2017 Overview: Added automatically from request for surgery [id number] Pulmonary embolism 01/17/2016 05/28/2017 Hypoxemia 01/17/2016 09/26/2017 Prediabetes 12/21/2015 09/03/2018 Severe ankle sprain 09/16/2015 05/07/2017 Abdominal pain 04/03/2012 07/07/2015 UTI (urinary tract infection) 04/03/2012 Stroke 04/03/2012 12/21/2015 Obesity 04/03/2012 07/07/2015 HTN (hypertension) 04/03/2012 09/03/2018 Morbid obesity 09/03/2018 Hypothyroidism 09/03/2018 Unilateral emphysema 12/21/2015 Hypertension 07/07/2015 Asthma 09/26/2017 Ulcer of the stomach and intestine 12/21/2015 Stroke (cerebrum) 07/07/2015 documented as of this encounter (statuses as of 03/13/2022) [facility] History of Past illness Narrative* Problem Noted Date Resolved Date Abnormal mammogram 01/10/2021 05/05/2021 Acquired renal cyst 09/03/2018 05/05/2021 Colonic mass 03/02/2017 09/26/2017 Overview: Added automatically from request for surgery [id number] Pulmonary embolism 01/17/2016 05/28/2017 Hypoxemia 01/17/2016 09/26/2017 Prediabetes 12/21/2015 09/03/2018 Severe ankle sprain 09/16/2015 05/07/2017 Abdominal pain 04/03/2012 07/07/2015 UTI (urinary tract infection) 04/03/2012 Stroke 04/03/2012 12/21/2015 Obesity 04/03/2012 07/07/2015 HTN (hypertension) 04/03/2012 09/03/2018 Morbid obesity 09/03/2018 Hypothyroidism 09/03/2018 Unilateral emphysema 12/21/2015 Hypertension 07/07/2015 Asthma 09/26/2017 Ulcer of the stomach and intestine 12/21/2015 Stroke (cerebrum) 07/07/2015 documented as of this encounter (statuses as of 05/24/2022) [facility] History of Past illness Narrative* Problem Noted Date Resolved Date Abnormal mammogram 01/10/2021 05/05/2021 Acquired renal cyst 09/03/2018 05/05/2021 Colonic mass 03/02/2017 09/26/2017 Overview: Added automatically from request for surgery [id number] Pulmonary embolism 01/17/2016 05/28/2017 Hypoxemia 01/17/2016 09/26/2017 Prediabetes 12/21/2015 09/03/2018 Severe ankle sprain 09/16/2015 05/07/2017 Abdominal pain 04/03/2012 07/07/2015 UTI (urinary tract infection) 04/03/2012 Stroke 04/03/2012 12/21/2015 Obesity 04/03/2012 07/07/2015 HTN (hypertension) 04/03/2012 09/03/2018 Morbid obesity 09/03/2018 Hypothyroidism 09/03/2018 Unilateral emphysema 12/21/2015 Hypertension 07/07/2015 Asthma 09/26/2017 Ulcer of the stomach and intestine 12/21/2015 Stroke (cerebrum) 07/07/2015 documented as of this encounter (statuses as of 06/28/2022) [facility] of Past illness Narrative* Problem Noted Date Resolved Date Abnormal mammogram 01/10/2021 05/05/2021 Acquired renal cyst 09/03/2018 05/05/2021 Colonic mass 03/02/2017 09/26/2017 Overview: Added automatically from request for surgery [id number] Pulmonary embolism 01/17/2016 05/28/2017 Hypoxemia 01/17/2016 09/26/2017 Prediabetes 12/21/2015 09/03/2018 Severe ankle sprain 09/16/2015 05/07/2017 Abdominal pain 04/03/2012 07/07/2015 UTI (urinary tract infection) 04/03/2012 Stroke 04/03/2012 12/21/2015 Obesity 04/03/2012 07/07/2015 HTN (hypertension) 04/03/2012 09/03/2018 Morbid obesity 09/03/2018 Hypothyroidism 09/03/2018 Unilateral emphysema 12/21/2015 Hypertension 07/07/2015 Asthma 09/26/2017 Ulcer of the stomach and intestine 12/21/2015 Stroke (cerebrum) 07/07/2015 documented as of this encounter (statuses as of 07/29/2022) [facility] of Past illness Narrative* Problem Noted Date Diagnosed Date Resolved Date Abnormal mammogram 01/10/2021 Acquired renal cyst 09/03/2018 05/05/20 21 Colonic mass 03/02/2017 09/26/2017 Overview: Added automatically from request for surgery [id number] Pulmonary embolism 01/17/2016 7 Hypoxemia 01/17/2016 09/26/2017 Prediabetes 12/21/2015 09/03/2018 Severe ankle sprain 09/16/2015 05/07/20 17 Abdominal pain 04/03/2012 07/07/2015 UTI (urinary tract infection) 04/03/2012 12/21/2015 Stroke 04/03/2012 12/21/2015 Obesity 04/03/2012 07/07/2015 HTN (hypertension) 04/03/2012 9 Morbid obesity 09/03/2018 Hypothyroidism 09/03/2018 Unilateral emphysema 016 Hypertension 07/07/2015 Asthma 09/26/2017 Ulcer of the stomach and intestine 12/21/2015 Stroke (cerebrum) 07/07/2015 documented as of this encounter (statuses as of 02/28/2023) [facility] of Past illness Narrative* Problem Noted Date Diagnosed Date Resolved Date Abnormal mammogram 01/10/2021 1 Acquired renal cyst 09/03/2018 05/05/20 21 Colonic mass 03/02/2017 09/26/2017 Overview: Added automatically from request for surgery [id number] Pulmonary embolism 01/17/2016 7 Hypoxemia 01/17/2016 09/26/2017 Prediabetes 12/21/2015 09/03/2018 Severe ankle sprain 09/16/2015 05/07/20 17 Abdominal pain 04/03/2012 07/07/2015 UTI (urinary tract infection) 04/03/2012 12/21/2015 Stroke 04/03/2012 12/21/2015 Obesity 04/03/2012 07/07/2015 HTN (hypertension) 04/03/2012 9 Morbid obesity 09/03/2018 Hypothyroidism 09/03/2018 Unilateral emphysema 016 Hypertension 07/07/2015 Asthma 09/26/2017 Ulcer of the stomach and intestine 12/21/2015 Stroke (cerebrum) 07/07/2015 documented as of this encounter (statuses as of 05/27/2023) [facility] of Past illness Narrative* Problem Noted Date Diagnosed Date Resolved Date Abnormal mammogram 01/10/2021 1 Acquired renal cyst 09/03/2018 05/05/20 21 Colonic mass 03/02/2017 09/26/2017 Overview: Added automatically from request for surgery [id number] Pulmonary embolism 01/17/2016 7 Hypoxemia 01/17/2016 09/26/2017 Prediabetes 12/21/2015 09/03/2018 Severe ankle sprain 09/16/2015 05/07/20 17 Abdominal pain 04/03/2012 07/07/2015 UTI (urinary tract infection) 04/03/2012 12/21/2015 Stroke 04/03/2012 12/21/2015 Obesity 04/03/2012 07/07/2015 HTN (hypertension) 04/03/2012 9 Morbid obesity 09/03/2018 Hypothyroidism 09/03/2018 Unilateral emphysema 016 Hypertension 07/07/2015 Asthma 09/26/2017 Ulcer of the stomach and intestine 12/21/2015 Stroke (cerebrum) 07/07/2015 documented as of this encounter (statuses as of 09/13/2023) [facility] illness Narrative* Problem Noted Date Diagnosed Date Resolved Date Abnormal mammogram 01/10/2021 1 Acquired renal cyst 09/03/2018 05/05/20 21 Colonic mass 03/02/2017 09/26/2017 Overview: Added automatically from request for surgery [id number] Pulmonary embolism 01/17/2016 7 Hypoxemia 01/17/2016 09/26/2017 Prediabetes 12/21/2015 09/03/2018 Severe ankle sprain 09/16/2015 05/07/20 17 Abdominal pain 04/03/2012 07/07/2015 UTI (urinary tract infection) 04/03/2012 12/21/2015 Stroke 04/03/2012 12/21/2015 Obesity 04/03/2012 07/07/2015 HTN (hypertension) 04/03/2012 9 Morbid obesity 09/03/2018 Hypothyroidism 09/03/2018 Unilateral emphysema 016 Hypertension 07/07/2015 Asthma 09/26/2017 Ulcer of the stomach and intestine 12/21/2015 Stroke (cerebrum) 07/07/2015 documented as of this encounter (statuses as of 10/13/2023) [facility] illness Narrative* Problem Noted Date Diagnosed Date Resolved Date Abnormal mammogram 01/10/2021 1 Acquired renal cyst 09/03/2018 05/05/20 21 Colonic mass 03/02/2017 09/26/2017 Overview: Added automatically from request for surgery [id number] Pulmonary embolism 01/17/2016 7 Hypoxemia 01/17/2016 09/26/2017 Prediabetes 12/21/2015 09/03/2018 Severe ankle sprain 09/16/2015 05/07/20 17 Abdominal pain 04/03/2012 07/07/2015 UTI (urinary tract infection) 04/03/2012 12/21/2015 Stroke 04/03/2012 12/21/2015 Obesity 04/03/2012 07/07/2015 HTN (hypertension) 04/03/2012 9 Morbid obesity 09/03/2018 Hypothyroidism 09/03/2018 Unilateral emphysema 016 Hypertension 07/07/2015 Asthma 09/26/2017 Ulcer of the stomach and intestine 12/21/2015 Stroke (cerebrum) 07/07/2015 documented as of this encounter (statuses as of 10/15/2023) [facility] illness Narrative* Problem Noted Date Diagnosed Date Resolved Date Abnormal mammogram 01/10/2021 1 Acquired renal cyst 09/03/2018 05/05/20 21 Colonic mass 03/02/2017 09/26/2017 Overview: Added automatically from request for surgery [id number] Pulmonary embolism 01/17/2016 7 Hypoxemia 01/17/2016 09/26/2017 Prediabetes 12/21/2015 09/03/2018 Severe ankle sprain 09/16/2015 05/07/20 17 Abdominal pain 04/03/2012 07/07/2015 UTI (urinary tract infection) 04/03/2012 12/21/2015 Stroke 04/03/2012 12/21/2015 Obesity 04/03/2012 07/07/2015 HTN (hypertension) 04/03/2012 9 Morbid obesity 09/03/2018 Hypothyroidism 09/03/2018 Unilateral emphysema 016 Hypertension 07/07/2015 Asthma 09/26/2017 Ulcer of the stomach and intestine 12/21/2015 Stroke (cerebrum) 07/07/2015 documented as of this encounter (statuses as of 11/02/2023) [facility] illness Narrative* Problem Noted Date Diagnosed Date Resolved Date Abnormal mammogram 01/10/2021 1 Acquired renal cyst 09/03/2018 05/05/20 21 Colonic mass 03/02/2017 09/26/2017 Overview: Added automatically from request for surgery [id number] Pulmonary embolism 01/17/2016 7 Hypoxemia 01/17/2016 09/26/2017 Prediabetes 12/21/2015 09/03/2018 Severe ankle sprain 09/16/2015 05/07/20 17 Abdominal pain 04/03/2012 07/07/2015 UTI (urinary tract infection) 04/03/2012 12/21/2015 Stroke 04/03/2012 12/21/2015 Obesity 04/03/2012 07/07/2015 HTN (hypertension) 04/03/2012 9 Morbid obesity 09/03/2018 Hypothyroidism 09/03/2018 Unilateral emphysema 016 Hypertension 07/07/2015 Asthma 09/26/2017 Ulcer of the stomach and intestine 12/21/2015 Stroke (cerebrum) 07/07/2015 documented as of this encounter (statuses as of 11/06/2023) [facility] Diagnosis Gross hematuria- Primary Recurrent UTI Urinary tract infection, site not specified documented in this encounter [facility] Diagnosis Onset Date Resolution Status LEIGH ANN (acute kidney injury) re solved Hematemesis resolved Pneumonia resolved UTI (urinary tract infection) resolved Weakness resolved Anemia acute Fatty liver acute Melena acute Abdominal pain acute Anemia acute Fatty liver acute Hematemesis acute Melena acute [facility] Work Phone: Evaluation note* Diagnosis Asthma with chronic obstructive pulmonary disease (COPD) (HCC) Chronic obstructive asthma, unspecified documented in this encounter [facility] Gross hematuria documented in this encounter [facility] Diagnosis Onset Date Resolution Status LEIGH ANN (acute kidney injury) re solved Hematemesis resolved Pneumonia resolved UTI (urinary tract infection) resolved Weakness resolved Anemia acute Fatty liver acute Melena acute Abdominal pain acute Anemia acute Fatty liver acute Hematemesis acute Melena acute Epilepsy acute Hypoxic brain injury acute 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 Polyneuropathy acute [facility] Work Phone: Evaluation note* Diagnosis Onset Date Resolution Status LEIGH ANN (acute kidney injury) re solved Hematemesis resolved Pneumonia resolved UTI (urinary tract infection) resolved Weakness resolved Anemia acute Fatty liver acute Melena acute Abdominal pain acute Anemia acute Fatty liver acute Hematemesis acute Melena acute Epilepsy chronic Hypoxic brain injury chronic 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 Fatigue chronic Hypoxic brain injury chronic 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 [facility] Work Phone: Evaluation note* Diagnosis Onset Date Resolution Status Anemia acute Fatty liver acute Melena acute Abdominal pain acute Anemia acute Fatty liver acute Hematemesis acute Melena acute Epilepsy chronic Hypoxic brain injury chronic 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 Fatigue chronic Hypoxic brain injury chronic 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 [facility] Work Phone: Evaluation note* Diagnosis Onset Date Resolution Status Abdominal pain acute Anemia acute Fatty liver acute Hematemesis acute Melena acute Epilepsy chronic Hypoxic brain injury chronic 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 Fatigue chronic Hypoxic brain injury chronic 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 Concussion acute FTT (failure to thrive) in adult acute [facility] Work Phone: Evaluation note* Diagnosis Onset Date Resolution Status Abdominal pain acute Anemia acute Fatty liver acute Hematemesis acute Melena acute Epilepsy chronic Hypoxic brain injury chronic 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 Fatigue chronic Hypoxic brain injury chronic 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 Anemia acute Concussion acute Contusion, chest wall acute Falls frequently acute FTT (failure to thrive) in adult acute H/O long-term (current) use of anticoagulants acute Headache acute Acute on chronic blood loss anemia chronic [facility] Work Phone: Evaluation note* Diagnosis Onset Date Resolution Status Abdominal pain acute Anemia acute Fatty liver acute Hematemesis acute Melena acute Epilepsy chronic Hypoxic brain injury chronic 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 Fatigue chronic Hypoxic brain injury chronic 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 [facility] Work Phone: Evaluation note* Diagnosis Closed head injury, sequela- Primary Concussion without loss of consciousness, sequela (HCC) Anemia due to blood loss 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 Failure to thrive in adult Adult failure to thrive Falls frequently Personal history of fall Epistaxis Chronic pain syndrome Chronic respiratory failure with hypoxia (HCC) Chronic respiratory failure documented in this encounter [facility] Diagnosis Onset Date Resolution Status Epilepsy chronic Hypoxic brain injury chronic 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 Fatigue chronic Hypoxic brain injury chronic 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 Acute on chronic blood loss anemia resolved Contusion, chest wall resolv ed Headache resolved [facility] Work Phone: Evaluation note* Diagnosis Major depressive disorder, recurrent episode with anxious distress (HCC)- Primary Anxiety Anxiety state, unspecified Panic disorder with agoraphobia Agoraphobia with panic disorder Bereavement Bereavement, uncomplicated [facility] Left leg pain- Primary Pain in limb History of DVT of lower extremity Personal history of venous thrombosis and embolism Anemia, unspecified type Chronic pain syndrome History of pulmonary embolism Personal history of pulmonary embolism documented in this encounter [facility] Diagnosis Obesity, Class III, BMI >= 40 Morbid obesity Ductal carcinoma in situ (DCIS) of left breast Encounter for screening mammogram for malignant neoplasm of breast Other screening mammogram documented in this encounter [facility] Diagnosis Onset Date Resolution Status Epilepsy chronic Fatigue chronic Hypoxic brain injury chronic 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 Falls frequently acute Acute on chronic blood loss anemia resolved Contusion, chest wall resolv ed Headache resolved [facility] Work Phone: Evaluation note* Diagnosis Onset Date Resolution Status Epilepsy chronic Fatigue chronic Hypoxic brain injury chronic 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 Falls frequently acute Acute on chronic blood loss anemia resolved Contusion, chest wall resolv ed Headache resolved Falls frequently acute Anxiety and depression chron ic COPD (chronic obstructive pulmonary disease) chronic 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 Establishing care with new doctor, encounter for noneactive Numbness and tingling in left arm noneactive Chronic anemia noneactive [facility] Work Phone: Evaluation note* Diagnosis Anxiety Anxiety state, unspecified Major depressive disorder, recurrent episode with anxious distress (HCC) [facility] Asthma with chronic obstructive pulmonary disease (COPD) ([facility]) Chronic obstructive asthma, unspecified documented in this encounter [facility] Diagnosis Onset Date Resolution Status Falls frequently acute Anxiety and depression chron ic COPD (chronic obstructive pulmonary disease) chronic 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 Establishing care with new doctor, encounter for noneactive Numbness and tingling in left arm noneactive Chronic anemia noneactive Falls frequently acute Anxiety and depression chron ic COPD (chronic obstructive pulmonary disease) chronic 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 Immunization due noneactive Numbness and tingling in left arm noneactive Rectal bleed noneactive Chronic anemia noneactive Acute hyperkalemia acute Acute kidney injury acute Falls frequently acute Generalized muscle weakness acute Anxiety and depression chron ic COPD (chronic obstructive pulmonary disease) chronic Depression chronic Hypothyroidism chronic Obesity chronic STEPHANIE (obstructive sleep apnea) [facility] Work Phone: Evaluation note* Diagnosis Onset Date Resolution Status COPD (chronic obstructive pulmonary disease) chronic 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 Establishing care with new doctor, encounter for noneactive Numbness and tingling in left arm noneactive Chronic anemia noneactive COPD (chronic obstructive pulmonary disease) chronic 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 Immunization due noneactive Numbness and tingling in left arm noneactive Rectal bleed noneactive Chronic anemia noneactive COPD (chronic obstructive pulmonary disease) chronic Hypothyroidism chronic Obesity chronic STEPHANIE (obstructive sleep apnea) [facility] Work Phone: Evaluation note* Diagnosis Anxiety Anxiety state, unspecified Major depressive disorder, recurrent episode with anxious distress (HCC) [facility] Diagnosis Anxiety Anxiety state, unspecified Major depressive disorder, recurrent episode with anxious distress (HCC) [facility] Diagnosis Asthma with chronic obstructive pulmonary disease (COPD) (HCC) Chronic obstructive asthma, unspecified documented in this encounter [facility] Diagnosis Essential hypertension Unspecified essential hypertension Mixed hyperlipidemia Gastroesophageal reflux disease without esophagitis Esophageal reflux Asthma with chronic obstructive pulmonary disease (COPD) (HCC) Chronic obstructive asthma, unspecified documented in this encounter [facility] Diagnosis NO SHOW- Primary [facility] information availableWC[facility] Work Phone: Evaluation note* Diagnosis Onset Date Resolution Status COPD (chronic obstructive pulmonary disease) chronic 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 History of breast cancer non eactive History of blood clots nonea ctive Immunization due noneactive Chronic pain noneactive Essential hypertension nonea ctive Left flank pain noneactive Screening for breast cancer noneactive Chronic anemia noneactive [facility] Work Phone: Evaluation note* Diagnosis Asthma with chronic obstructive pulmonary disease (COPD)- Primary Chronic obstructive asthma, unspecified [facility] Work Phone: [facility] Work Phone: Hospital Discharge instructions Additional Instructions *Please take this with you to your next doctors appointment* You were admitted with an elevated potassium and worsened kidney function which appeared to have been due to medication and dehydration You significantly improved when you were given fluids and these medications were held Would recommend you continue to hold the Lasix and spironolactone as well as the losartan Additionally your metoprolol was decreased to 50 mg due to your blood pressure and heart rate running on the low side. Would recommend continuing this dosage Recommend you obtain lab work (BMP) to check your potassium and kidney function in 3 to 5 days through your primary care physician's office. Please call upon discharge to schedule hospital follow-up appointment and obtain lab work order Continue your home dose of Effexor and other home medications -Please call your primary care provider's office upon discharge to schedule a hospital follow up within 1 week. -For any concerning signs or symptoms please call 911 or proceed to the nearest emergency department Date of Discharge: 06/06/22[facility] Work Phone: Hospital Discharge instructions Additional Instructions Your hemoglobin was 7.8 today. You do not require transfusions from the emergency department.[facility] Work Phone: Hospital Discharge instructions Additional Instructions Continue your oxycodone for analgesia. Wear your splint for the next week, you may remove it for bathing or sleeping if needed. Continue ice and elevation of your left wrist and hand when possible.[facility] Work Phone: Hospital Discharge instructionsAmbulatory Orders* Home Health Location: None Selected [facility] Work Phone: Reason for referral (narrative)* Diagnostic Procedure Only (Routine) - Authorized Specialty Diagnoses / Procedures Referred By Alexander hooper Referred To Contact US IMAGING Diagnoses Left leg pain Procedures US DVT LOWER LT DUP-SCAN XTR VEINS UNILATERAL/LIMITED STUDY Alvarez Montanez MD [address] [place] [address] Us Imaging Referral ID Status Reason Start Date Expiration Date Visits Requested Visits Authorized [id number] Authorized Auto-Generat ed Referral 02/20/2022 03/22/2023 1 1 [facility] for referral (narrative)* Diagnostic Procedure Only (Routine) - Closed Specialty Diagnoses / Procedures Referred By Alexander hooper Referred To Contact BR IMAGING Diagnoses Obesity, Class III, BMI 40-49.9 (morbid obesity) (HCC) Ductal carcinoma in situ (DCIS) of left breast Encounter for screening mammogram for malignant neoplasm of breast Procedures PÉREZ SCREENING SCREENING MAMMOGRAPHY BI 2-VIEW BREAST INC Isela Malone MD [address] [place] [address] Br Imaging [address] [place] [address] Referral ID Status Reason Start Date Expiration Date V isits Requested Visits Authorized [id number] Closed Auto-Generate d Referral 02/19/2022 09/21/2022 1 1 [facility] for [facility] (narrative)No reason for referral information availableM[facility] Work Phone: Reason for visit Narrative* Diagnostic Procedure Only (Routine) - Closed Specialty Diagnoses / Procedures Referred By Contac t Referred To Contact BR IMAGING Diagnoses Obesity, Class III, BMI 40-49.9 (morbid obesity) (HCC) Ductal carcinoma in situ (DCIS) of left breast Encounter for screening mammogram for malignant neoplasm of breast Procedures PÉREZ SCREENING SCREENING MAMMOGRAPHY BI 2-VIEW BREAST INC Isela Malone MD [address] [facility] [place] [address] Br Imaging [address] [place] [address] Referral ID Status Reason Start Date Expiration Date V isits Requested Visits Authorized [id number] Closed Auto-Generate d Referral 02/19/2022 09/21/2022 1 1 [facility] Summary Purpose Family History No Family History Records Found Relationship Condition Age at Onset Recorded Date/T jatin brother Myocardial infarction Unknown Asthma Unknown Mental disorder Unknown Psychiatric care Unknown Attempted suicide Unknown father Malignant neoplasm of colon Unknown brother Mental disorder Unknown aunt Parkinson's disease Unknown sister Malignant neoplasm of breast Unknown Malignant neoplasm of cervix Unknown Malignant neoplasm of ovary Unknown sister Malignant neoplasm of cervix Unknown mother Malignant neoplasm Unknown History of blood clots Unknown Hypertension Unknown Advance Directives No Advanced Directives Records FoundDocuments on File Type Date Recorded 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 Advance Directive(s) 03/14/2017 9:50 AM Documents on File Type Date Recorded 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 Advance Directive(s) 03/14/2017 9:50 AM Advance Directive Response Recorded Date/ Time Advance Directives No May 03, 2021 9:40am Living Will No September 22, 2021 7:13pm Power of Transcription Typist No September 22 7:13pm Advance Directive Response Recorded Date/ Time Advance Directives No May 03, 2021 9:40am Living Will No November 03, 2021 5:26pm Power of Transcription Typist No Angelika 14th, 20 22 5:26pm Advance Directive Response Recorded Date/ Time Advance Directives No May 03, 2021 9:40am Living Will No December 14, 2021 1 :28pm Power of Transcription Typist No December 14, 2021 1:28pm Advance Directive Response Recorded Date/ Time Advance Directives No May 03, 2021 9:40am Living Will No January 10, 2022 6:28pm Power of Transcription Typist No January 10 6:28pm Advance Directive Response Recorded Date/ Time Advance Directives No May 03, 2021 9:40am Living Will No January 17, 2022 11:39pm Power of Transcription Typist No January 17 11:39pm Advance Directive Response Recorded Date/ Time Advance Directives No May 03, 2021 9:40am Living Will No January 18, 2022 4:13am Power of Transcription Typist No January 18 4:13am Advance Directive Response Recorded Date/ Time Advance Directives No May 03, 2021 9:40am Living Will No January 15, 2022 7:24pm Power of Transcription Typist No January 15 7:24pm Advance Directive Response Recorded Date/ Time Advance Directives No May 03, 2021 9:40am Living Will No February 12, 2022 3:39pm Power of Transcription Typist No February 12 3:39pm Advance Directive Response Recorded Date/ Time Advance Directives No May 03, 2021 9:40am Living Will No March 06 2 6:27pm Power of Transcription Typist No March 06 2 022 6:27pm Advance Directive Response Recorded Date/ Time Advance Directives No May 03, 2021 9:40am Living Will No March 15 2 5:47pm Power of Transcription Typist No March 15 2 022 5:47pm Advance Directive Response Recorded Date/ Time Advance Directives No May 03, 2021 9:40am Living Will No March 19 2 2:31pm Power of Transcription Typist No March 19 2 022 2:31pm Advance Directive Response Recorded Date/ Time Advance Directives No May 03, 2021 9:40am Living Will No April 01, 2022 12:53pm Power of Transcription Typist No March 12:53pm Advance Directive Response Recorded Date/ Time Name of Medical Power of Transcription Typist SISTER IN LAW June 05, 2022 9:06pm Advance Directives No May 03, 2021 8:40am Living Will Yes June 05, 022 9:06pm Power of Transcription Typist Yes June 05, 2022 9:06pm Advance Directive Response Recorded Date/ Time Name of Medical Power of Transcription Typist Deanne Bradshaw June 06, 2022 2:57am Advance Directives No May 03, 2021 8:40am Living Will No June 06, 022 2:57am Power of Transcription Typist Yes June 06, 2022 2:57am Advance Directive Response Recorded Date/ Time Advance Directives No May 03, 2021 9:40am Living Will No February 07, 2023 10:10pm Power of Transcription Typist No February 07 10:10pm Advance Directive Response Recorded Date/ Time Advance Directives No May 03, 2021 8:40am Living Will No July 02, 023 9:41pm Power of Transcription Typist No July 02, 2023 9:41pm Advance Directive Response Recorded Date/ Time Living Will No August 13 1:54am Do you have a Healthcare Power of Transcription Typist? No August 13, 2024 1:54am Do you have a Healthcare Power of Transcription Typist? No November 20, 2024 11:46am Advance Directives No May 03, 2021 9:40am Advance Directive Response Recorded Date/ Time Do you have a Healthcare Power of Transcription Typist? No November 20, 2024 11:46am Advance Directives No May 03, 2021 9:40am Reason for Referral Specialty Diagnoses / Procedures Referred By Alexander t Referred To Contact CT IMAGING Diagnoses Gross hematuria Procedures CT UROGRAM WO/W IVCON CT ABD & PELVIS W/O CONTRST 1+ BODY Chiol Young PA-C [address] [place] [address] Ct Imaging Referral ID Status Reason Start Date Expiration Date Visits Requested Visits Authorized [id number] Authorized Auto-Generat ed Referral 10/19/2021 11/17/2022 1 1 Referral ID Status Reason Start Date Expiration Date V isits Requested Visits Authorized [id number] Closed Auto-Generate d Referral 10/19/2021 11/17/2022 1 1 Specialty Diagnoses / Procedures Referred By Alexander hooper Referred To Contact Psychology Diagnoses Anxiety Major depressive disorder, recurrent episode with anxious distress (HCC) Bereavement Minnie Edwards MD [address] [place] [address] [facility] [address] [place] [address] Referral ID Status Reason Start Date Expiration Date V isits Requested Visits Authorized [id number] Authorized 02/08/2022 02/08/2023 3 3 Scheduling Instructions Please contact or go to the [facility] desk to schedule an appointment. Chief Complaint and Reason for Visit Chief Complaint RIGHT SHOULDER/ELBOW FALL ACUTE UTI, LEIGH ANN ACUTE UTI, LEIGH ANN ACUTE UTI, LEIGH ANN ACUTE UTI, LEIGH ANN ACUTE UTI, LEIGH ANN ACUTE UTI, LEIGH ANN ACUTE UTI, LEIGH ANN ACUTE UTI, LEIGH ANN ACUTE UTI, LEIGH ANN Hospital discharge Capsule RIGHT FLANK PAIN Review diagnostic results EORDER FATTY LIVER Reason for Visit LEIGH ANN (acute kidney in jury) Hematemesis Pneumonia UTI (urinary tract infection) Weakness Anemia Fatty liver Melena Abdominal pain Anemia Fatty liver Hematemesis Melena Chief Complaint RIGHT SHOULDER/ELBOW FALL ACUTE UTI, LEIGH ANN ACUTE UTI, LEIGH ANN ACUTE UTI, LEIGH ANN ACUTE UTI, LEIGH ANN ACUTE UTI, LEIGH ANN ACUTE UTI, LEIGH ANN ACUTE UTI, LEIGH ANN ACUTE UTI, LEIGH ANN ACUTE UTI, LEIGH ANN Hospital discharge Capsule RIGHT FLANK PAIN Review diagnostic results EORDER FATTY LIVER EORDER Falling frequently d/t tremors lab work recently Reason for Visit LEIGH ANN (acute kidney in jury) Hematemesis Pneumonia UTI (urinary tract infection) Weakness Anemia Fatty liver Melena Abdominal pain Anemia Fatty liver Hematemesis Melena Epilepsy Hypoxic brain injury 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 Chief Complaint RIGHT SHOULDER/ELBOW FALL ACUTE UTI, LEIGH ANN ACUTE UTI, LEIGH ANN ACUTE UTI, LEIGH ANN ACUTE UTI, LEIGH ANN ACUTE UTI, LEIGH ANN ACUTE UTI, LEIGH ANN ACUTE UTI, LEIGH ANN ACUTE UTI, LEIGH ANN ACUTE UTI, LEIGH ANN Hospital discharge Capsule RIGHT FLANK PAIN Review diagnostic results EORDER FATTY LIVER EORDER Falling frequently d/t tremors lab work recently seizure Reason for Visit LEIGH ANN (acute kidney in jury) Hematemesis Pneumonia UTI (urinary tract infection) Weakness Anemia Fatty liver Melena Abdominal pain Anemia Fatty liver Hematemesis Melena Epilepsy Hypoxic brain injury 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 Chief Complaint FALL ACUTE UTI, LEIGH ANN ACUTE UTI, LEIGH ANN ACUTE UTI, LEIGH ANN ACUTE UTI, LEIGH ANN ACUTE UTI, LEIGH ANN ACUTE UTI, LEIGH ANN ACUTE UTI, LEIGH ANN ACUTE UTI, LEIGH ANN ACUTE UTI, LEIGH ANN Hospital discharge Capsule RIGHT FLANK PAIN Review diagnostic results EORDER FATTY LIVER EORDER Falling frequently d/t tremors lab work recently seizure 6 WK FU EORDER FLANK Reason for Visit LEIGH ANN (acute kidney in jury) Hematemesis Pneumonia UTI (urinary tract infection) Weakness Anemia Fatty liver Melena Abdominal pain Anemia Fatty liver Hematemesis Melena Epilepsy Hypoxic brain injury 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 Epilepsy Fatigue Hypoxic brain injury 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 Chief Complaint ACUTE UTI, LEIGH ANN ACUTE UTI, LEIGH ANN ACUTE UTI, LEIGH ANN ACUTE UTI, LEIGH ANN ACUTE UTI, LEIGH ANN ACUTE UTI, LEIGH ANN ACUTE UTI, LEIGH ANN ACUTE UTI, LEIGH ANN ACUTE UTI, LEIGH ANN Hospital discharge Capsule RIGHT FLANK PAIN Review diagnostic results EORDER FATTY LIVER EORDER Falling frequently d/t tremors lab work recently seizure 6 WK FU EORDER FLANK Reason for Visit LEIGH ANN (acute kidney in jury) Hematemesis Pneumonia UTI (urinary tract infection) Weakness Anemia Fatty liver Melena Abdominal pain Anemia Fatty liver Hematemesis Melena Epilepsy Hypoxic brain injury 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 Epilepsy Fatigue Hypoxic brain injury 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 Chief Complaint Hospital discharge Capsule RIGHT FLANK PAIN Review diagnostic results EORDER FATTY LIVER EORDER Falling frequently d/t tremors lab work recently seizure 6 WK FU EORDER FLANK LOW BLOOD COUNTS Reason for Visit Anemia Fatty liver Melena Abdominal pain Anemia Fatty liver Hematemesis Melena Epilepsy Hypoxic brain injury 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 Epilepsy Fatigue Hypoxic brain injury 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 Chief Complaint Capsule RIGHT FLANK PAIN Review diagnostic results EORDER FATTY LIVER EORDER Falling frequently d/t tremors lab work recently seizure 6 WK FU EORDER FLANK LOW BLOOD COUNTS FALL FTT ADULT, CONCUSSION SUSPECTED, RECENT FALLS Reason for Visit Abdominal pain Anemia Fatty liver Hematemesis Melena Epilepsy Hypoxic brain injury 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 Epilepsy Fatigue Hypoxic brain injury 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 Concussion FTT (failure to thrive) in adult Chief Complaint Capsule RIGHT FLANK PAIN Review diagnostic results EORDER FATTY LIVER EORDER Falling frequently d/t tremors lab work recently seizure 6 WK FU EORDER FLANK LOW BLOOD COUNTS FALL FTT ADULT, CONCUSSION SUSPECTED, RECENT FALLS Reason for Visit Abdominal pain Anemia Fatty liver Hematemesis Melena Epilepsy Hypoxic brain injury 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 Epilepsy Fatigue Hypoxic brain injury 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 Anemia Concussion Contusion, chest wall Falls frequently FTT (failure to thrive) in adult H/O long-term (current) use of anticoagulants Headache Acute on chronic blood loss anemia Chief Complaint Capsule RIGHT FLANK PAIN Review diagnostic results EORDER FATTY LIVER EORDER Falling frequently d/t tremors lab work recently seizure 6 WK FU EORDER FLANK LOW BLOOD COUNTS FALL Reason for Visit Abdominal pain Anemia Fatty liver Hematemesis Melena Epilepsy Hypoxic brain injury 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 Epilepsy Fatigue Hypoxic brain injury 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 Chief Complaint FATTY LIVER EORDER Falling frequently d/t tremors lab work recently seizure 6 WK FU EORDER FLANK LOW BLOOD COUNTS FALL FTT ADULT, CONCUSSION SUSPECTED, RECENT FALLS FTT ADULT, CONCUSSION SUSPECTED, RECENT FALLS FALL Reason for Visit Epilepsy Hypoxic brain injury 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 Epilepsy Fatigue Hypoxic brain injury 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 Acute on chronic blood loss anemia Contusion, chest wall Headache Chief Complaint 6 WK FU EORDER FLANK LOW BLOOD COUNTS FALL FTT ADULT, CONCUSSION SUSPECTED, RECENT FALLS FTT ADULT, CONCUSSION SUSPECTED, RECENT FALLS FALL FLANK PAIN Reason for Visit Epilepsy Fatigue Hypoxic brain injury 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 Immunization due Numbness and tingling in left arm Rectal bleed Chronic anemia COPD (chronic obstructive pulmonary disease) Hypothyroidism Obesity STEPHANIE (obstructive sleep apnea) Chief Complaint BMP, fall Chief Complaint [facility] LL[facility] UP ON MEDS ANEMIA Reason for Visit COPD (chronic obstru ctive pulmonary disease) Epilepsy Arvind-Christine syndrome with action induced myoclonus History of breast cancer History of blood clots Immunization due Chronic pain Essential hypertension Left flank pain Screening for breast cancer Chronic anemia Chief Complaint Admit Date SYNCOPAL EVENTS, FALLS, ADULT FTT Januar y 2024 11:51pm Syncope August 12, 2024 1 1:56pm SYNCOPAL EVENTS, FALLS, ADULT FTT Januar y 2024 7:30am SYNCOPAL EVENTS, FALLS, ADULT FTT Januar y 2024 8:04am SYNCOPAL EVENTS, FALLS, ADULT FTT Januar y 2024 7:37am [facility] FU August 28, 2024 3 :19pm EORDER- URINE September 01, 2024 2:36pm Having some issues November 14, 2024 7: 21am headache post injury (STAT) INT LABS Oct 8:48am UPPER EXT November 20, 2024 10:47a m Reason for Visit Admit Date Complicated laceration of hand July 242024 11:51pm Parkinson's disease August 12, 2024 1 1:51pm Syncope August 12, 2024 1 1:51pm TIA (transient ischemic attack) August 12, 2024 11:51pm Complicated laceration of hand August 28, 2024 3:19pm Head injury November 14, 2024 7:2 1am Essential hypertension November 14, 2024 7:21am Chief Complaint Admit Date EORDER- URINE September 01, 2024 2:36pm Having some issues November 14, 2024 7: 21am headache post injury (STAT) INT LABS Oct 8:48am UPPER EXT November 20, 2024 10:47a m BLOOD IN URINE December 29, 2024 8:55a m Reason for Visit Admit Date Head injury November 14, 2024 7:2 1am Essential hypertension November 14, 2024 7:21am Vitamin D deficiency December 29, 2024 8:55 am COPD (chronic obstructive pulmonary dise ase) December 29, 2024 8:55am Epilepsy December 29, 2024 8:55a m Arvind-Christine syndrome with action induced myoclonus December 29, 2024 8:55am Anxiety and depression December 29, 2024 8: 55am Falls frequently December 29, 2024 8:55a m History of blood clots December 29, 2024 8: 55am Hematuria December 29, 2024 8:55a m Chronic pain December 29, 2024 8:55a m Essential hypertension December 29, 2024 8: 55am Prediabetes December 29, 2024 8:55a m Chronic anemia December 29, 2024 8:55a m Iron deficiency December 29, 2024 8:55a m Chief Complaint Admit Date Having some issues November 14, 2024 7: 21am headache post injury (STAT) INT LABS Oct 8:48am UPPER EXT November 20, 2024 10:47a m BLOOD IN URINE December 29, 2024 8:55a m Chief Complaint Admit Date Having some issues November 14, 2024 7: 21am headache post injury (STAT) INT LABS Oct 8:48am UPPER EXT November 20, 2024 10:47a m BLOOD IN URINE December 29, 2024 8:55a m FOLLOW UP January 08, 2025 8:35 am Chief Complaint Admit Date Having some issues November 14, 2024 7: 21am headache post injury (STAT) INT LABS Apr 2024 8:48am UPPER EXT November 20, 2024 10:47a m BLOOD IN URINE December 29, 2024 8:55a m FOLLOW UP January 08, 2025 8:35 am HEMATURIA January 08, 2025 3:21 pm Referral Order January 14, 2025 9:49 am Health Concerns Problem Noted Date Diagnosed Date High Risk Chronic Disease Home Monitoring [facility] 12/05/2022 Active Problems Noted Date Diagnosed Date High Risk Chronic Disease Home Monitoring [facility] 12/05/2022 Active Problems Noted Date Diagnosed Date High Risk Chronic Disease Home Monitoring [facility] 12/05/2022 Additional Source Comments INFORMATION SOURCE (unrecogn ized section and content) DATE CREATED AUTHOR 01/16/2018 [facility] DATE CREATED AUTHOR AUTHOR'S ORGANIZ ATION 12/19/2020 [facility] DATE CREATED AUTHOR AUTHOR'S ORGANIZ ATION 02/23/2022 [facility] DATE CREATED AUTHOR AUTHOR'S ORGANIZ ATION 08/15/2022 [facility] DATE CREATED AUTHOR AUTHOR'S ORGANIZ ATION 01/18/2024 [facility] DATE CREATED AUTHOR AUTHOR'S ORGANIZ ATION 02/24/2025 [facility] Source Comments (unrecognize d section and content) In the event this informatio n is protected by the Federal Confidentiality of Alcohol and Drug Abuse Patient Records regulations: The Federal rules restrict any use of the information to criminally investigate or prosecute any alcohol or drug abuse patient.[facility] the event this information is protected by the Federal Confidentiality of Alcohol and Drug Abuse Patient Records regulations: The Federal rules restrict any use of the information to criminally investigate or prosecute any alcohol or drug abuse patient.[facility] the event this information is protected by the Federal Confidentiality of Alcohol and Drug Abuse Patient Records regulations: The Federal rules restrict any use of the information to criminally investigate or prosecute any alcohol or drug abuse patient.[facility] the event this information is protected by the Federal Confidentiality of Alcohol and Drug Abuse Patient Records regulations: The Federal rules restrict any use of the information to criminally investigate or prosecute any alcohol or drug abuse patient.[facility] the event this information is protected by the Federal Confidentiality of Alcohol and Drug Abuse Patient Records regulations: The Federal rules restrict any use of the information to criminally investigate or prosecute any alcohol or drug abuse patient.[facility] the event this information is protected by the Federal Confidentiality of Alcohol and Drug Abuse Patient Records regulations: The Federal rules restrict any use of the information to criminally investigate or prosecute any alcohol or drug abuse patient.[facility] the event this information is protected by the Federal Confidentiality of Alcohol and Drug Abuse Patient Records regulations: The Federal rules restrict any use of the information to criminally investigate or prosecute any alcohol or drug abuse patient.[facility] the event this information is protected by the Federal Confidentiality of Alcohol and Drug Abuse Patient Records regulations: The Federal rules restrict any use of the information to criminally investigate or prosecute any alcohol or drug abuse patient.[facility] the event this information is protected by the Federal Confidentiality of Alcohol and Drug Abuse Patient Records regulations: The Federal rules restrict any use of the information to criminally investigate or prosecute any alcohol or drug abuse patient.[facility] the event this information is protected by the Federal Confidentiality of Alcohol and Drug Abuse Patient Records regulations: The Federal rules restrict any use of the information to criminally investigate or prosecute any alcohol or drug abuse patient.[facility] the event this information is protected by the Federal Confidentiality of Alcohol and Drug Abuse Patient Records regulations: The Federal rules restrict any use of the information to criminally investigate or prosecute any alcohol or drug abuse patient.[facility] the event this information is protected by the Federal Confidentiality of Alcohol and Drug Abuse Patient Records regulations: The Federal rules restrict any use of the information to criminally investigate or prosecute any alcohol or drug abuse patient.[facility]In the event this information is protected by the Federal Confidentiality of Alcohol and Drug Abuse Patient Records regulations: The Federal rules restrict any use of the information to criminally investigate or prosecute any alcohol or drug abuse patient.[facility]In the event this information is protected by the Federal Confidentiality of Alcohol and Drug Abuse Patient Records regulations: The Federal rules restrict any use of the information to criminally investigate or prosecute any alcohol or drug abuse patient.[facility]In the event this information is protected by the Federal Confidentiality of Alcohol and Drug Abuse Patient Records regulations: The Federal rules restrict any use of the information to criminally investigate or prosecute any alcohol or drug abuse patient.[facility]In the event this information is protected by the Federal Confidentiality of Alcohol and Drug Abuse Patient Records regulations: The Federal rules restrict any use of the information to criminally investigate or prosecute any alcohol or drug abuse patient.[facility]In the event this information is protected by the Federal Confidentiality of Alcohol and Drug Abuse Patient Records regulations: The Federal rules restrict any use of the information to criminally investigate or prosecute any alcohol or drug abuse patient.[facility]In the event this information is protected by the Federal Confidentiality of Alcohol and Drug Abuse Patient Records regulations: The Federal rules restrict any use of the information to criminally investigate or prosecute any alcohol or drug abuse patient.[facility]In the event this information is protected by the Federal Confidentiality of Alcohol and Drug Abuse Patient Records regulations: The Federal rules restrict any use of the information to criminally investigate or prosecute any alcohol or drug abuse patient.[facility]In the event this information is protected by the Federal Confidentiality of Alcohol and Drug Abuse Patient Records regulations: The Federal rules restrict any use of the information to criminally investigate or prosecute any alcohol or drug abuse patient.[facility]In the event this information is protected by the Federal Confidentiality of Alcohol and Drug Abuse Patient Records regulations: The Federal rules restrict any use of the information to criminally investigate or prosecute any alcohol or drug abuse patient.[facility]In the event this information is protected by the Federal Confidentiality of Alcohol and Drug Abuse Patient Records regulations: The Federal rules restrict any use of the information to criminally investigate or prosecute any alcohol or drug abuse patient.[facility]In the event this information is protected by the Federal Confidentiality of Alcohol and Drug Abuse Patient Records regulations: The Federal rules restrict any use of the information to criminally investigate or prosecute any alcohol or drug abuse patient.[facility]In the event this information is protected by the Federal Confidentiality of Alcohol and Drug Abuse Patient Records regulations: The Federal rules restrict any use of the information to criminally investigate or prosecute any alcohol or drug abuse patient.[facility]In the event this information is protected by the Federal Confidentiality of Alcohol and Drug Abuse Patient Records regulations: The Federal rules restrict any use of the information to criminally investigate or prosecute any alcohol or drug abuse patient.[facility]In the event this information is protected by the Federal Confidentiality of Alcohol and Drug Abuse Patient Records regulations: The Federal rules restrict any use of the information to criminally investigate or prosecute any alcohol or drug abuse patient.[facility]In the event this information is protected by the Federal Confidentiality of Alcohol and Drug Abuse Patient Records regulations: The Federal rules restrict any use of the information to criminally investigate or prosecute any alcohol or drug abuse patient.[facility]In the event this information is protected by the Federal Confidentiality of Alcohol and Drug Abuse Patient Records regulations: The Federal rules restrict any use of the information to criminally investigate or prosecute any alcohol or drug abuse patient.[facility]In the event this information is protected by the Federal Confidentiality of Alcohol and Drug Abuse Patient Records regulations: The Federal rules restrict any use of the information to criminally investigate or prosecute any alcohol or drug abuse patient.[facility]In the event this information is protected by the Federal Confidentiality of Alcohol and Drug Abuse Patient Records regulations: The Federal rules restrict any use of the information to criminally investigate or prosecute any alcohol or drug abuse patient.[facility]In the event this information is protected by the Federal Confidentiality of Alcohol and Drug Abuse Patient Records regulations: The Federal rules restrict any use of the information to criminally investigate or prosecute any alcohol or drug abuse patient.[facility] Reason for Visit (unrecogniz ed section and content) Reason Comments FYI: Discharged today Reason Comments Follow Up Reason Comments Appointment Reason Onset Date Comments Refill Request 10/24/[address] Specialty Diagnoses / Procedures Referred By Contac t Referred To Contact CT IMAGING Diagnoses Gross hematuria Procedures CT UROGRAM WO/W IVCON CT ABD & PELVIS W/O CONTRST 1+ BODY Chilo Young PA-C [address] [place] [address] Ct Imaging Referral ID Status Reason Start Date Expiration Date V isits Requested Visits Authorized [id number] Closed Auto-Generate d Referral 10/19/2021 11/17/2022 1 1 Reason Comments Results Reason Comments Patient Update Reason Onset Date Comments Community Monitoring Outreach 11/23/2021 [facility] CDM Outreach Reason Onset Date Comments Community Monitoring Outreach 12/26/2021 [facility] ED UTI / CDM Outreach Reason Comments Refill Reason Onset Date Comments Community Monitoring Outreach 01/16/2022 [facility] Enrollment Reason Onset Date Comments Refill Request 01/18/2022 Reason Onset Date Comments Transition Of Care 01/24/2022 Reason Comments Transition Of Care Reason Comments Anxiety disorder/anxiety state Depressive disorder Reason Comments F/U 6 months Reason Comments Palliative Care Reason Onset Date Comments Refill Request 05/24/2022 Reason Comments No Show Reason Onset Date Comments Refill Request 06/27/2022 Reason Onset Date Comments Refill Request 07/24/2022 Reason Onset Date Comments No Show 08/09/2022 Reason Onset Date Comments Community Monitoring Outreach 02/22/2023 Reason Onset Date Comments Community Monitoring Outreach 05/24/2023 Reason Onset Date Comments Community Monitoring Outreach 09/13/2023 Reason Onset Date Comments Community Monitoring Outreach 10/15/2023 Reason Onset Date Comments Community Monitoring Outreach 11/16/2023 Reason Onset Date Comments Community Monitoring Outreach 01/07/2024 Care Teams (unrecognized sec tion and content) Prep Cook Relationship Specialty Start Date End Date Alvarez Montanez MD [address] [place], [place] [id number] PCP - General Internal Medicine 12/21/15 Rajani Stewart [address] [place], [place] [id number] Psychiatry 04/25/17 Isiah Barker MD, [address] [place], [place] [id number] Physician Radiation Oncology 06/27/21 Juan Marti, assistant editorRegional Sales Associate Internal Medicine 09/21/21 Prep Cook Relationship Specialty Start Date End Date Alvarez Montanez MD [address] [place], [place] [address] PCP - General Internal Medicine 12/21/15 Rajani Stewart [address] [place], [place] [id number] Psychiatry 04/25/17 Isiah Barker MD, [address] [place] [address] Physician Radiation Oncology 06/27/21 Juan Marti, assistant editorRegional Sales Associate Internal Medicine 09/21/21 Prep Cook Relationship Specialty Start Date End Date Alvarez Montanez MD [address] [facility] [place] [address] PCP - General Internal Medicine 12/21/15 Rajani Stewart [address] [place] [address] Psychiatry 04/25/17 Isiah Barker MD, [address] [place] [address] Physician Radiation Oncology 06/27/21 Juan Marti, assistant editorRegional Sales Associate Internal Medicine 09/21/21 Prep Cook Relationship Specialty Start Date End Date Alvarez Montanez MD [address] [facility] [place] [address] PCP - General Internal Medicine 12/21/15 Rajani Stewart [address] [place] [address] Psychiatry 04/25/17 Isiah Barker MD, [address] [place] [address] Physician Radiation Oncology 06/27/21 Juan Marti, assistant editorRegional Sales Associate Internal Medicine 09/21/21 Prep Cook Relationship Specialty Start Date End Date Alvarez Montanez MD [address] [facility] [place] [address] PCP - General Internal Medicine 12/21/15 Rajani Stewart [address] [place] [address] Psychiatry 04/25/17 Isiah Barker MD, [address] [place] [address] Physician Radiation Oncology 06/27/21 Juan Marti, assistant editorRegional Sales Associate Internal Medicine 09/21/21 Prep Cook Relationship Specialty Start Date End Date Alvarez Montanez MD [address] [place] [address] PCP - General Internal Medicine 12/21/15 Rajani Stewart [address] [place] [address] Psychiatry 04/25/17 Isiah Barker MD, [address] [place] [address] Physician Radiation Oncology 06/27/21 Juan Marti, assistant editorRegional Sales Associate Internal Medicine 09/21/21 Prep Cook Relationship Specialty Start Date End Date Alvarez Montanez MD [address] [place] [address] PCP - General Internal Medicine 12/21/15 Rajani Stewart [address] [place] [address] Psychiatry 04/25/17 Isiah Barker MD, [address] [facility] [place] [place] [address] Physician Radiation Oncology 06/27/21 Juan Marti assistant editorRegional Sales Associate Internal Medicine 09/21/21 Prep Cook Relationship Specialty Start Date End Date Alvarez Montanez MD [address] [place] [address] PCP - General Internal Medicine 12/21/15 Rajani Stewart [address] [place] [address] [address] [place] [address] Psychiatry 04/25/17 Isiah Barker MD, [address] [place] [address] Physician Radiation Oncology 06/27/21 Juan Marti, assistant editorRegional Sales Associate Internal Medicine 09/21/21 Prep Cook Relationship Specialty Start Date End Date Alvarez Montanez MD [address] [place] [address] PCP - General Internal Medicine 12/21/15 Rajani Stewart [address] [place] [address] DR [address] [place] [address] Psychiatry 04/25/17 Isiah Barker MD, [address] [facility] [place] [address] Physician Radiation Oncology 06/27/21 Juan Marti, assistant editorRegional Sales Associate Internal Medicine 09/21/21 Prep Cook Relationship Specialty Start Date End Date Nas Boogie DO [address] [place], [place] [id number] PCP - General 01/06/20 Prep Cook Relationship Specialty Start Date End Date Alvarez Montanez MD [address] [place] [address] PCP - General Internal Medicine 12/21/[address] [facility] [address] [place] [address] DR [address] [place] [address] Psychiatry 04/25/17 Isiah Barker MD, [address] [place] [address] Physician Radiation Oncology 06/27/21 Juan Marti, assistant editorRegional Sales Associate Internal Medicine 09/21/21 Prep Cook Relationship Specialty Start Date End Date Imani Geiger MD [address] [place] [place] [address] PCP - General 01/17/22 Prep Cook Relationship Specialty Start Date End Date Alvarez Montanez MD [address] [place] [address] PCP - General Internal Medicine 12/21/15 Rajani Stewart [address] [facility] [place] [address] Psychiatry 04/25/17 Isiah Barker MD, [address] [facility] [place] [place] [address] Physician Radiation Oncology 06/27/21 Juan Marti, assistant editorRegional Sales Associate Internal Medicine 09/21/21 Prep Cook Relationship Specialty Start Date End Date Alvarez Montanez MD [address] [place] [address] PCP - General Internal Medicine 12/21/15 Rajani Stewart [address] [facility] [address] [place] [address] Psychiatry 04/25/17 Isiah Barker MD, [address] [facility] [place] [address] Physician Radiation Oncology 06/27/21 Juan Marti, assistant editorRegional Sales Associate Internal Medicine 09/21/21 Prep Cook Relationship Specialty Start Date End Date Alvarez Montanez MD [address] [place] [address] PCP - General Internal Medicine 12/21/15 Rajani Stewart [address] [facility] [address] [place] [address] Psychiatry 04/25/17 Isiah Barker MD, [address] [place] [address] Physician Radiation Oncology 06/27/21 Juan Marti, assistant editorRegional Sales Associate Internal Medicine 09/21/21 Prep Cook Relationship Specialty Start Date End Date Alvarez Montanez MD [address] [place] [address] PCP - General Internal Medicine 12/21/15 Raajni Stewart [address] [facility]Z [address] [place] [address] Psychiatry 04/25/17 Isiah Barker MD, [address] [place] [address] Physician Radiation Oncology 06/27/21 Juan Marti, assistant editorRegional Sales Associate Internal Medicine 09/21/21 Prep Cook Relationship Specialty Start Date End Date Imani Geiger MD [address] [place] [place] [address] PCP - General 01/17/22 Prep Cook Relationship Specialty Start Date End Date Imani Geiger MD [address] [place] [place] [address] PCP - General 01/17/22 Prep Cook Relationship Specialty Start Date End Date Alvarez Montanez MD [address] [place] [address] PCP - General Internal Medicine 12/21/15 Rajani Stewart [address] [place] [address] Psychiatry 04/25/17 Isiah Barker MD, [address] [place] [address] Physician Radiation Oncology 06/27/21 Juan Marti, assistant editorRegional Sales Associate Internal Medicine 09/21/21 Prep Cook Relationship Specialty Start Date End Date Imani Geiger MD [address] [place] [address] PCP - General 01/17/22 Prep Cook Relationship Specialty Start Date End Date Imani Geiger MD [address] [place] [place] [address] PCP - General 01/17/22 Prep Cook Relationship Specialty Start Date End Date Imani Geiger MD [address] [place] [place] [address] PCP - General 01/17/22 Prep Cook Relationship Specialty Start Date End Date Alvarez Montanez MD [address] [place] [address] PCP - General Internal Medicine 12/21/15 Rajani Stewart [address] [place] [address] Psychiatry 04/25/17 Isiah Barker MD, [address] [place] [address] Physician Radiation Oncology 06/27/21 Demario Martinez, assistant editorRegional Sales Associate Internal Medicine 09/21/21 Prep Cook Relationship Specialty Start Date End Date Alvarez Montanez MD [address] [place] [address] PCP - General Internal Medicine 12/21/15 Rajani Stewart [address] [place] [address] Psychiatry 04/25/17 Isiah Barker MD, [address] [place], [place] [address] Physician Radiation Oncology 06/27/21 Demario Martinez, assistant editorRegional Sales Associate Internal Medicine 09/21/21 Team Status: Active Member Role Status Dates Dr. Alvarez Montanez MD Family Provider Active Dr. Marilee Yu MD Primary Care Provider Active Team Status: Active Member Role Status Dates NII WARD Attending Provider, Referring Provider A ctive Dr. Ysabel Ruffin MD Primary Care Provider Active Team Status: Inactive Member Role Status Dates Dr. Kee Funk MD Emergency Provider Active Dr. Marilee Yu MD Primary Care Provider Active Team Status: Inactive Member Role Status Dates Dr. Ysabel Ruffin MD Primary Care Provider Active NII WARD Attending Provider, Referring Provider A ctive Team Status: Inactive Member Role Status Dates Dr. Kee Funk MD Attending Provider, Emergency Pr ovider Active Dr. Marilee Yu MD Primary Care Provider Active Prep Cook Relationship Specialty Start Date End Date Alvarez Montanez MD [address] [place], [place] [address] PCP - General Internal Medicine 12/21/15 Rajani Stewart [address] [place] [address] Psychiatry 04/25/17 Isiah Bakrer MD, MD [address] [place], [place] [address] Physician Radiation Oncology 06/27/21 Demario Martinez RN Regional Sales Associate Internal Medicine 09/21/21 Team Status: Inactive Member Role Status Dates Dr. Marilee Yu MD Primary Care Provider, Referring Provider Active Dr. Ysabel Ruffin MD Attending Provider Active Team Status: Inactive Member Role Status Dates Dr. Marilee Yu MD Primary Care Provider Active Callum Knutson MD Referring Provider, Emergency Provid er Active Prep Cook Relationship Specialty Start Date End Date Alvarez Montanez MD [address] [facility], [place] [address] PCP - General Internal Medicine 12/21/15 Rajani Stewart [address] [facility] [place] [address] Psychiatry 04/25/17 Isiah Barker MD [address] [facility] [place] [place] [address] Physician Radiation Oncology 06/27/21 Demario Martinez, assistant editorRegional Sales Associate Internal Medicine 09/21/21 Prep Cook Relationship Specialty Start Date End Date Alvarez Montanez MD [address] [place], [place] [address] PCP - General Internal Medicine 12/21/15 Rajani Stewart [address] [place] [address] Psychiatry 04/25/17 Isiah Barker MD [address] [facility] [place] [place], [place] [address] Physician Radiation Oncology 06/27/21 Demario Martinez, assistant editorRegional Sales Associate Internal Medicine 09/21/21 Prep Cook Relationship Specialty Start Date End Date Alvarez Montanez MD [address] [place], [place] [id number] PCP - General Internal Medicine 12/21/15 Rajani Stewart [address] [place] [address] Psychiatry 04/25/17 Isiah Barker MD [address] [facility] [place] [place] [id number] Physician Radiation Oncology 06/27/21 Demario Martinez, assistant editorRegional Sales Associate Internal Medicine 09/21/21 Prep Cook Relationship Specialty Start Date End Date Alvarez Montanez MD [address] [place], [place] [address]371 PCP - General Internal Medicine 12/21/15 Rajani Stewart [address] [place] [address] Psychiatry 04/25/17 Isiah Barker MD [address] [place] [address] Physician Radiation Oncology 06/27/21 Demario Martinez RN Regional Sales Associate Internal Medicine 09/21/21 Prep Cook Relationship Specialty Start Date End Date Rajani Stewart [address] [place] [address] Psychiatry 04/25/17 Isiah Barker MD [address] [place] [address] Physician Radiation Oncology 06/27/21 Demario Martinez, assistant editorRegional Sales Associate Internal Medicine 09/21/21 Prep Cook Relationship Specialty Start Date End Date Imani Geiger MD [address] [place] [address] [place] [address] PCP - General 01/17/22 Team Status: Active Member Role Status Dates Dr. Ysabel Ruffin MD Primary Care Provider Active Team Status: Inactive Member Role Status Dates Dr. Ysabel Ruffin MD Primary Care Provider Active Start: August 12, 2024 End: August 15, 2024 Dr. Chad Pederson DO Emergency Provider Active Start: August 12, 2024 End: August 15, 2024 Dr. Aleksandra Hurley MD Admit Provider Active St art: August 12, 2024 End: August 15, 2024 Dr. Aleksandra Hurley MD Other Provider Active St art: August 12, 2024 End: August 15, 2024 Dr. Nick Romano MD Other Provider Active Sta rt: August 12, 2024 End: August 15, 2024 Dr. Alexander Ye MD Attending Provider Active Start: August 12, 2024 End: August 15, 2024 Team Status: Active Member Role Status Dates Dr. Ysabel Ruffin MD Primary Care Provider Active Start: August 12, 2024 Dr. Chad Pederson DO Emergency Provider Active Start: August 12, 2024 Dr. Aleksandra Hurley MD Admit Provider Active St art: August 12, 2024 Dr. Aleksandra Hurley MD Attending Provider Active Start: August 12, 2024 Dr. Aleksandra Hurley MD Other Provider Active St art: August 12, 2024 Team Status: Active Member Role Status Dates Dr. Ysabel Ruffin MD Primary Care Provider Active Start: August 13, 2024 Dr. Chad Pederson DO Emergency Provider Active Start: August 13, 2024 Dr. Aleksandra Hurley MD Admit Provider Active St art: August 13, 2024 Dr. Aleksandra Hurley MD Other Provider Active St art: August 13, 2024 Dr. Nick Romano MD Attending Provider Active Start: August 13, 2024 Dr. Nick Romano MD Other Provider Active Sta rt: August 13, 2024 Team Status: Active Member Role Status Dates Dr. Ysabel Ruffin MD Primary Care Provider Active Start: August 14, 2024 Dr. Chad Pederson DO Emergency Provider Active Start: August 14, 2024 Dr. Aleksandra Hurley MD Admit Provider Active St art: August 14, 2024 Dr. Aleksandra Hurley MD Other Provider Active St art: August 14, 2024 Dr. Alexander Ye MD Attending Provider Active Start: August 14, 2024 Dr. Alexander Ye MD Other Provider Active Star t: August 14, 2024 Dr. Nick Romano MD Other Provider Active Sta rt: August 14, 2024 Team Status: Active Member Role Status Dates Dr. Ysabel Ruffin MD Primary Care Provider Active Start: August 15, 2024 Dr. Chad Pederson DO Emergency Provider Active Start: August 15, 2024 Dr. Aleksandra Hurley MD Admit Provider Active St art: August 15, 2024 Dr. Aleksandra Hurley MD Other Provider Active St art: August 15, 2024 Dr. Nick Romano MD Other Provider Active Sta rt: August 15, 2024 Dr. Alexander Ye MD Attending Provider Active Start: August 15, 2024 Dr. Alexander Ye MD Other Provider Active Star t: August 15, 2024 Team Status: Inactive Member Role Status Dates Dr. Ysabel Ruffin MD Primary Care Provider Active Start: August 28, 2024 End: August 28, 2024 Dr. Ysabel Ruffin MD Referring Provider Active Start: August 28, 2024 End: August 28, 2024 TANNER Melendrez Attending Provider Active St art: August 28, 2024 End: August 28, 2024 Team Status: Inactive Member Role Status Dates Dr. Ysabel Ruffin MD Primary Care Provider Active Start: September 01, 2024 End: September 01, 2024 Dr. Luke Tirado MD Attending Provider Active Start: September 01, 2024 End: September 01, 2024 Dr. Luke Tirado MD Referring Provider Active Start: September 01, 2024 End: September 01, 2024 Team Status: Inactive Member Role Status Dates TANNER Melendrez Attending Provider Active St art: November 14, 2024 End: November 14, 2024 Dr. Ysabel Ruffin MD Primary Care Provider Active Start: November 14, 2024 End: November 14, 2024 Dr. Ysabel Ruffin MD Referring Provider Active Start: November 14, 2024 End: November 14, 2024 Team Status: Inactive Member Role Status Dates Dr. Ysabel Ruffin MD Primary Care Provider Active Start: November 14, 2024 End: November 14, 2024 Oli HART PA Attending Provider Active St art: November 14, 2024 End: November 14, 2024 Team Status: Inactive Member Role Status Dates Dr. Ysabel Ruffin MD Primary Care Provider Active Start: November 20, 2024 End: November 20, 2024 Callum Knutson MD Attending Provider Active Star t: November 20, 2024 End: November 20, 2024 Callum Knutson MD Emergency Provider Active Star t: November 20, 2024 End: November 20, 2024 Team Status: Inactive Member Role Status Dates Dr. Ysabel Ruffin MD Primary Care Provider Active Start: December 29, 2024 End: December 29, 2024 Dr. Ysabel Ruffin MD Attending Provider Active Start: December 29, 2024 End: December 29, 2024 Dr. Ysabel Ruffin MD Referring Provider Active Start: December 29, 2024 End: December 29, 2024 Team Status: Active Member Role Status Dates Dr. Ysabel Ruffin MD Primary Care Provider Active Start: December 29, 2024 Dr. Ysabel Ruffin MD Attending Provider Active Start: December 29, 2024 Dr. Ysabel Ruffin MD Referring Provider Active Start: December 29, 2024 Team Status: Inactive Member Role Status Dates Dr. Ysabel Ruffin MD Primary Care Provider Active Start: January 08, 2025 End: January 08, 2025 Dr. Ysabel Ruffin MD Referring Provider Active Start: January 08, 2025 End: January 08, 2025 Dr. Chapincito Castro MD Attending Provider Active Start: January 08, 2025 End: January 08, 2025 Team Status: Active Member Role Status Dates Dr. Ysabel Ruffin MD Primary Care Provider Active Start: January 08, 2025 Dr. Ysabel Ruffin MD Attending Provider Active Start: January 08, 2025 Dr. Ysabel Ruffin MD Referring Provider Active Start: January 08, 2025 Team Status: Active Member Role Status Dates Dr. Ysabel Ruffin MD Primary Care Provider Active Start: January 14, 2025 Dr. Ysabel Ruffin MD Attending Provider Active Start: January 14, 2025 Team Status: Inactive Member Role Status Dates Dr. Ysabel Ruffin MD Primary Care Provider Active Start: January 08, 2025 End: January 08, 2025 Dr. Ysabel Ruffin MD Attending Provider Active Start: January 08, 2025 End: January 08, 2025 Dr. Ysabel Ruffin MD Referring Provider Active Start: January 08, 2025 End: January 08, 2025 Goals (unrecognized section and content) Goals may be documented in a n alternate sectionGoals may be documented in an alternate sectionGoals may be documented in an alternate sectionGoals may be documented in an alternate sectionGoals may be documented in an alternate sectionGoals may be documented in an alternate sectionGoals may be documented in an alternate sectionGoals may be documented in an alternate sectionGoals may be documented in an alternate sectionGoals may be documented in an alternate sectionGoals may be documented in an alternate sectionGoals may be documented in an alternate sectionGoals may be documented in an alternate sectionGoals may be documented in an alternate sectionGoals may be documented in an alternate sectionGoals may be documented in an alternate sectionGoals may be documented in an alternate section FOR RECORDS PERTAINING TO PATIENTS WHO ARE OR HAVE BEEN ENROLLED IN A CHEMICAL DEPENDENCY/SUBSTANCEABUSE PROGRAM, SOME INFORMATION MAY BE OMITTED. This clinical summary was aggregated from multiple sources. Caution should be exercised in using it in the provision of clinical care. This summary normalizes information from multiple sources, and as a consequence, information in this document may materially change the coding, format and clinical context of patient data. In addition, data may be omitted in some cases. CLINICAL DECISIONS SHOULD BE BASED ON THE PRIMARY CLINICAL RECORDS. [employer] [facility]. provides no warranty or guarantee of the accuracy or completeness of information in this document.
[2025-03-08 16:25] LABS: Prothrombin Time (Protime)PT. 13.7 SECONDS (11.7-14.9)
[2025-03-08 16:26] LABS: Partial Thromboplast Time 31.6 Seconds (24.1-36.2)
--- NOTE | 2025-03-08 16:28 | RAD_ITS ---
PROCEDURE: CHEST 1 VIEW (PORTABLE) 03/08/2025 REASON FOR EXAM: COUGH TECHNIQUE: Frontal view of the chest. COMPARISON: 06/22/2024 FINDINGS: Lungs/Pleura: Suboptimal inspiration. No airspace consolidation, pneumothorax, or sizable pleural effusion. No significant vascular congestion. Heart/Mediastinum: Enlarged cardiac silhouette, although likely exaggerated by technique. Bones/Soft tissues: No significant abnormality. RAD/Chest 1 View (Portable) IMPRESSION: Suboptimal inspiration. No evidence of acute cardiopulmonary disease. Reading Location: [id number]
[2025-03-08 16:36] LABS: AST(SGOT) 89 U/L (<=31); Alanine Aminotransfer ALT/SGPT 13 U/L (<=34); Albumin, Serum 4.1 g/dL (3.5-5.0); Alkaline Phosphatase 155 U/L (35-104); Anion Gap 8 (5-15); BUN 23 mg/dL (4-19); BUN/Creat Ratio 15.7 RATIO (10-20); Calcium,Total 9.6 mg/dL (7.6-11.0); Carbon Dioxide 30.9 mmol/L (21.0-32.0); Chloride 96 mmol/L (98-108); Estimated Creatinine Clearance 58.38 ml/min (50-250); Globulin 4.0 g/dL (2.2-4.2); Glucose 115 mg/dL (70-99); Potassium 4.7 mmol/L (3.3-5.1)
[2025-03-08 16:53] LABS: Mucous, Urine 0 SEEN /hpf (<or=2+)
[2025-03-08 17:22] LABS: Color, Urine Yellow (Yellow); Glucose, Dipstick Normal (Normal); Ketone-Dipstick Negative (Negative); Leukocyte Esterase-Dipstick 100 /ul (Negative); Nitrite-Dipstick Negative (Negative); Occult Blood-Urine 10 /ul (Negative); Protein-Dipstick 15 mg/dl (Negative); Specific Gravity, Urine 1.025 (1.002-1.030); Urine Bilirubin Dipstick Negative (Negative)
[2025-03-08 17:31] LABS: Red Blood Cells-Urine 0-5 SEEN /hpf (0-5); Squamous Epithelial Cells - UA 0-5 SEEN /hpf (5-10)
[2025-03-08] MEDS: Azithromycin 500 MG in 0.9% Normal Saline (250mL Bag) 250 ML 255 MG IV (18:05)
[2025-03-08 18:06] LABS: Allen Test Positive; Base Excess 5 mmol/L (-2 to +2); FI02 4.0; PO2 98 mmHG (75-100); SITE R Radial; SO2 95 % (95-99)
--- NOTE | 2025-03-08 18:08 | CPS ---
Critical ABG results given to Dr Kim
--- NOTE | 2025-03-08 18:18 | CPS ---
BiPAP mask placed on patient, Dr Covington at bedside. Patient became nauseated after a few minutes. BiPAP mask removed, RN aware and Dr. canada.
--- NOTE | 2025-03-08 19:42 | CPS ---
changed to avaps for low sats. pt carlos well
[2025-03-08] MEDS: 0.9% Normal Saline (1000mL) 1,000 ML 999 ML IV (19:56)
[2025-03-08 20:04] LABS: Allen Test Positive; Base Excess 1 mmol/L (-2 to +2); FI02 40.0; PEEP 10; PO2 72 mmHG (75-100); RR 12; SITE L Radial; SO2 86 % (95-99); Time Given 20:01:26
--- OUTSIDE RECORDS SUMMARY | 2025-03-08 20:09 | XMS RPT_ITS | CCD ---
Author Organization [facility] CliniSyme Care Team Providers Care Special Education Director Name Role Phone Alba Cedeno Unavailable Unavailable Get Christianson DO Unavailable Brianna Campo Unavailable Unavailable eKe Bagley MD Unavailable Ryanne STEWART, Caitlyn Boggs Unavailable Dukes ELEPHANT KEEPER, Alba Amy Unavailable Unavaila ble Yensho ELEPHANT KEEPER, Latoya A Unavailable Unavailab Yolanda Aguilar Unavailable Unavailable NEELIMAJULIAN Unavailable Unavailable NEELIMAJULIAN Unavailable Unavailable Yensho ELEPHANT KEEPER, Latoya A Unavailable Unavailab le Dukes ELEPHANT KEEPER, Alba Amy Unavailable Unavaila ble Dukes ELEPHANT KEEPER, Alba Amy Unavailable Unavaila ble Brianna Campo [...] Provider Dr. Alvarez Montanez Referring Provider Phylicia EDUCATION PROGRAM MANAGER, EDUCATION PROGRAM MANAGER-C Carline Summers Attending Provider Layla EDUCATION PROGRAM MANAGER, EDUCATION PROGRAM MANAGER-C Rhea Attending Provider Dr. Chapincito Castro Attending Provider Dr. Alvarez Montanez Primary Care Provider Dr. Ajay Millard Attending Provider Nas Boogie DO Primary Care Provider Dr. Alvarez Montanez Primary Care Provider Dr. Alvarez Montanez Referring Provider Phylicia EDUCATION PROGRAM MANAGER, EDUCATION PROGRAM MANAGER-C Carline Summers Attending Provider Dr. Alvarez Montanez Primary Care Provider Dr. Alvarez Montanez Referring Provider Dr. Rubi Mas Emergency Provider Dr. Aleksandra Hurley Admit Provider Dr. Aleksandra Hurley Other Provider Dr. Nick Romano Attending Provider Juan Antonio, Dr. Romero Other Provider Imani Geiger MD Primary Care Provider Dr. Alvarez Montanez Primary Care Provider Dr. Alvarez Montanez Referring Provider Tarik BATISTA, Avlarez Graf Primary Care Provider [phone] Rajani Stewart Unavailable Mj BATISTA MD, Daesung Unavailable Demario STEWART, Juan Summers Unavailable Unavailabl e Dr. Ysabel Ruffin Primary Care Provider Dr. Ysabel Ruffin Attending Provider [phone] Fely BATISTA, Imani Primary Care Provider Dr. Alvarez Montanez Referring Provider Dr. Ysabel Ruffin Primary Care Provider Dr. Ysabel Ruffin Attending Provider [phone] Dr. Ysabel Ruffin Referring Provider [phone] Dr. Sravan Acevedo Emergency Provider Dr. Kee [...] ALVAREZ MONTANEZ Primary Care Unavailable Fely BATISTA, [facility] Primary Care Provider Laly BATISTA, Dr. Grady [...] Provider Gloria BATISTA, Dr. Beckham Attending Provider [phone] [place], Ysabel Primary Care Unavailable White, Aleksandra L Consulting Unavailable White, Aleksandra L Attending Unavailable White, Aleksandra L Admitting Unavailable [place], Ysabel Primary Care Unavailable White, Aleksandra L Consulting Unavailable Juan Antonio, Nick Attending Unavailable White, Aleksandra L Admitting Unavailable Juan Antonio, Nick Consulting Unavailable Alexander Ye Attending Unavailable Alexander Ye Consulting Unavailable Lazarus, Crow Admitting Unavailable Crow Qiu Attending Unavailable Mosteller, Crow Consulting Unavailable Laly, Ysabel Primary Care Unavailable Mosteller, Crow Admitting Unavailable [place], Ysabel Primary Care Unavailable Mostmichael, Crow Consulting [...] Zepedaily Attending Unavailable Laly, Ysabel Attending Unavailable [place], Ysabel Primary Care Unavailable Laly, Ysabel Referring Unavailable Laly, Ysabel Referring Unavailable Laly, Ysabel Attending Unavailable Laly, [...] Consulting Unavailable Juan Antonio, Nick Consulting Unavailable [place], Ysabel Primary Care Unavailable Laly, Ysabel Referring Unavailable Sofia Carter Attending Unavailable Laly, Ysabel Attending Unavailable Laly, Ysabel Primary Care Unavailable Laly, Ysabel Primary Care Unavailable Viviana Avendano Attending Unavailabl e Laly, Ysabel Primary Care Unavailable Chloé Zepeda Attending Unavailable [place], Ysabel Attending Unavailable [place], Ysabel Primary Care Unavailable [place], Ysabel Referring Unavailable Chapincito Castro Attending Unavailable Laly, Ysabel Referring Unavailable Laly, Ysabel Primary Care Unavailable Laly, Ysabel Primary Care Unavailable [place], Ysabel Referring Unavailable Chapincito Castro Attending Unavailable Laly, Ysabel Primary Care Unavailable Callum Knutson Attending Unavailable [place], Ysabel Primary Care Unavailable [place], Ysabel Attending Unavailable [place], Ysabel Primary Care Unavailable Oli Fu Attending Unavailable [place], Ysabel Primary Care Unavailable White, Aleskandra L Consulting Unavailable White, Aleksandra L Admitting Unavailable Alexander Ye Attending Unavailable Juan Antonio, Nick Consulting Unavailable [place], Ysabel Primary Care Unavailable Laly, Ysabel Referring Unavailable Oli Fu Attending Unavailable Laly, Ysabel Primary Care Unavailable Laly, Ysabel Referring Unavailable Oli Fu Attending Unavailable [place], Ysabel Attending Unavailable Laly, Ysabel Referring Unavailable [place], Ysabel Primary Care Unavailable Allergies Allergy Classification Reported Allergen(s) Allergy Type Date of Onset Reaction(s) Facility (19 sources) dicyclomine drug allergy 10-11-19 17 itching [facility] Work Phone: (20 sources) ibuprofen drug allergy 10-11-19 17 hives [facility] Work Phone: (20 sources) ketorolac drug allergy 04-03-20 12 Hives [facility] Work Phone: (19 sources) meperidine drug allergy 10-11-19 17 [facility] Work Phone: (19 sources) nitroglycerin drug allergy 10-11-19 17 headache and tongue swelling [facility] Work Phone: (19 sources) penicillin v drug allergy 10-11-19 17 hives [facility] Work Phone: (20 sources) traMADol drug allergy 10-11-19 17 andioedema, Angioedema [facility] Work Phone: (19 sources) ASPIR-81 drug allergy 10-11-19 17 hives [facility] Work Phone: (3 sources) ketorolac Drug Allergy 10-11-19 17 angioedema [facility] Work Phone: (20 sources) aspirin; Translations: [ASPIRIN] Drug Allergy 08-24-19 14 Swelling [facility] Repository (20 sources) ketorolac; Translations: [KETOROLAC TROMETHAMINE] Drug Allergy 04-03-20 12 AOF, Angioedema [facility] (20 sources) meperidine; Translations: [MEPERIDINE (PF)] Drug Allergy 06-26-20 09 [facility] (20 sources) onion extract; Translations: [ONION] Drug Allergy 11-20-19 13 Anaphylaxis, Hives, Swelling [facility] (20 sources) peach allergenic extract; Translations: [PEACH] Drug Allergy 11-20-19 13 Anaphylaxis [facility] Rep[facility] (20 sources) peanut allergenic extract; Translations: [PEANUT] Drug Allergy 11-20-19 13 Anaphylaxis [facility] (20 sources) Penicillins; Translations: [PENICILLINS] Propensity to adverse reactions to drug (disorder) 06-26-20 09 Hives, Swelling [facility] Repository (20 sources) Shellfish; Translations: [SHELLFISH] Propensity to adverse reactions to food (disorder) 11-20-19 13 Anaphylaxis [facility] (20 sources) traMADol; Translations: [TRAMADOL] Drug Allergy 06-26-20 09 Hives [facility] (20 sources) FISH; Translations: [FISH] Propensity to adverse reactions to food (disorder) 11-20-19 13 Swelling [facility] (20 sources) Dicyclomine Drug Allergy 10-11-19 22 Itching [facility] (14 sources) Meperidine Drug Allergy 10-11-19 22 seizures [facility] Work Phone: (14 sources) Nitroglycerin Drug Allergy 10-11-19 Angioedema [facility] Work Phone: (20 sources) nut - unspecified; Translations: [nut - unspecified] Allergy to substance 10-11-19 22 Hives [facility] (11 sources) Fish Oils; Translations: [FISH OIL] Drug Allergy 10-12-19 16 Swelling [facility] Work Phone: (11 sources) Meperidine; Translations: [MEPERIDINE] Drug Allergy 02-10-20 [facility] ([facility] Naproxen; Translations: [NAPROXEN] Drug Allergy 07-29-19 16 [facility] Work [facility]: (2 sources) peach allergenic extract; Translations: [PRUNUS PERSICA] Drug Allergy 10-12-19 16 [facility] (2 sources) peanut oil; Translations: [PEANUT OIL] Drug Allergy 10-12-19 16 [facility] (11 sources) Shellfish; Translations: [SHELLFISH ALLERGY] Propensity to adverse reactions to drug 10-12-19 16 [facility] (9 sources) [place] Propensity to adverse reactions to drug 10-12-19 16 [facility] (9 sources) Peanut oil Propensity to adverse reactions to drug 10-12-19 16 [facility] (1 source) Dicyclomine Drug Allergy 01-09-20 [facility] (1 source) Ibuprofen Drug Allergy 01-09-20 [facility] (1 source) traMADol Drug Allergy 01-09-20 [facility] Repository Medications Current Medications Medication Drug Class(es) [...] by epifanio every 8 hours as needed. [id number] 200 actuat albuterol 0.09 mg/actuat metered dose [...] every 4 hours as needed ALBUTEROL SULFATE [id number] Yolanda Skinner Start: 03-29-2017 PROAIR HFA 108 (90 Base) MCG/ACT AERS 2 INH every 4 hours as needed ALBUTEROL SULFATE [id number] Yolanda Skinner Start: 03-29-2017 ALBUTEROL SULF ATE (2.5 MG/3ML) 0.083% NEBU 1 unit dose every 4 hours as needed ALBUTEROL SULFATE [id number] Yolanda Skinner Start: 03-29-2017 PROAIR HFA 108 (90 Base) MCG/ACT AERS 2 INH every 4 hours as needed ALBUTEROL SULFATE [id number] Yolanda Summers Brody Start: 11-24-2013 albuterol (PRO AIR HFA) inhaler 90 mcg/inh Inhale 2 Puffs. 11/24/2013 Active Comment on above: INHALE 2 PUFFS BY [facility] THREE TIMES A DAY NEEDED FOR SHORTNESS OF BREATH/WHEEZING/COUGH albuterol 0.833 mg/ml / ipratropium bromide 0.167 mg/ml inhalation solution (20 sources) Anticholinergic, beta2-Adrenergic Agonist Start: 2021 End: 2021 take 1 dose by inhalation every four hours as needed ipratropium-albut klaudia (DUONEB) 0.5 mg-3 mg(2.5 mg base)/3 mL nebu Indications: Asthma with chronic obstructive pulmonary disease (COPD) ([facility]) INHALE 1 VIAL VIA NEBULIZER EVERY 4 HOURS NEEDED 100 Each 0 06/28/2022 Active Start: 08-22-2021 End: 10-24-2021 take 1 dose by inhalation every four hours as needed ipratropium-albuterol (DUONEB) 0.5 mg-3 mg(2.5 mg base)/3 mL nebu Indications: Asthma with chronic obstructive pulmonary disease (COPD) ([facility]) INHALE 1 VIAL VIA NEBULIZER EVERY 4 [...] Start: 03-11-2015 take 1 capsule by mo [facility] once daily Cholecalciferol (VITAMIN D) 2000 UNITS CAPS Indications: Vitamin D deficiency Take 2,000 Units by mouth daily. 30 Cap 11 03/11/2015 Active clonazePAM 0.5 mg oral tablet (20 sources) Benzodiazepine Start: 08-22-2021 End: 05-10-2022 clonazePAM (KLONOPIN) 0.5 mg tablet Take 1 tablet by mouth twice daily. Per [facility]. 0 08/22/2021 Active Start: 05-09-2021 End: [...] Comment on above: [facility] Per [facility]. COMPOUNDED PRESCRIPTION (20 sources) Start: 03-11-2018 [...] directed docusate sodium 50 mg / sennosides, half-way 8.6 mg oral tablet (6 sources) Start: [...] MCG/ACT AERO 20 06/10/29 MOMETASONE FURO-FORMOTEROL FUM [id number] Yolanda Skinner Start: 10-19-2016 DULERA 200-5 M CG/ACT AERO MOMETASONE FURO-FORMOTEROL FUM [id number] Yolanda Skinner Start: 10-19-2016 End: 01-02-2017 DULERA 200-5 MCG/ACT AERO 20 06/10/29 MOMETASONE FURO-FORMOTEROL FUM [id number] Get Christianson DO Comment on above: Inhale [...] q4hrs prn anxiety Comment on above: From [employer]. meloxicam 7.5 mg oral tablet (11 sources) [...] PO DAILY June 23, 2024 1:00am sennosides, half-way 8.6 mg oral tablet (3 sources) Start: [...] Comment on above: Take 1 tablet by peifanio th twice daily. Per NEUROLOGY. (15 sources) [...] 1 tab po q4h as needed HYDROCODONE-ACETAMINOPHEN [id number] Alba Dukes LPN Start: 09-30-2016 End: 10-06-2016 [...] 04, 2016 8:31am Comment on above: From [facility] Albuterol 90 mcg/actuation aerosol (5 sources) Start: [...] 2 puffs twice daily BUDESONIDE-FORMOTERO L FUMARATE [id number] Alba Dukes LPN Start: 10-10-2016 take 2 puff(s) by in halation twice daily SYMBICORT 160-4.5 MCG/ACT AERO INH 2 puffs twice daily BUDESONIDE-FORMOTEROL FUMARATE [id number] Alba Dukes LPN Start: 10-10-2016 End: 10-19-2016 take 2 puff(s) by inhalation twice daily SYMBICORT 160-4.5 MCG/ACT AERO INH 2 puffs twice daily BUDESONIDE-FORMOTEROL FUMARATE [id number] Yolanda Skinner Start: 10-06-2016 End: 03-02-2021 Budesonide-Formoterol [...] TABS One tablet by mouth daily CALCIUM [id number] Alba Amy Dukes ELEPHANT KEEPER Start: 10-10-2016 take 1 tablet by epifanio th once daily CALCIUM 600 MG TABS One tablet by mouth daily CALCIUM 22188121737 Alba Amy Dukes ELEPHANT KEEPER calcium carbonate 1500 mg oral tablet (20 sources) Start: 10-10-2016 take 1 tablet by mouth once daily CALCIUM 600 MG TABS One tablet by mouth daily CALCIUM [id number] Alba Amy Dukes ELEPHANT KEEPER End: 02-20-2022 take 1 tablet by mouth [...] twice daily MUCINEX MAXIMUM STRENGTH 1200 MG [id number] One tablet by mouth twice daily GUAIFENESIN [id number] Alba Amy Dukes ELEPHANT KEEPER Start: 10-06-2016 take 1 tablet by epifanio th twice daily MUCINEX MAXIMUM STRENGTH 1200 MG [id number] One tablet by mouth twice daily GUAIFENESIN [id number] Alba Amy Dukes ELEPHANT KEEPER iv contrast (will be provide d with [...] CPDR One tablet by mouth daily LANSOPRAZOLE [id number] Arin Katelyn Shea NP Start: 01-03-2016 End: [...] One tablet by mouth daily LEVOTHYROXINE SODIUM [id number] Alba Dukes LPN Start: 01-03-2016 End: 03-02-2021 [...] tablet by mouth twice daily LOSARTAN POTASSIUM [id number] Alba Grimaldoyumiko Dukes LPN Start: 01-03-2016 End: [...] by epifanio th daily at bedtime. Per [facility]. Mometasone-Formoterol (Dulera) 100-5 mcg/actuation Hfa Aerosol [...] MG CPDR one tab once daily OMEPRAZOLE [id number] Arin Shea EDUCATION PROGRAM MANAGER Comment on above: Take 1 capsule by [facility] once daily. ondansetron 4 mg oral [...] December 12, 2021 3:48pm polyethylene glycol 3350 50079 mg powder for oral solution (20 sources) [...] TABS One tablet by mouth daily PREDNISONE [id number] Alba Dukes LPN Start: 09-30-2016 End: 10-06-2016 [...] mouth once daily. Plus 75 mg capsule. [facility]. 0 09/02/2020 07/29/2022 Discontinued Start: 05-13-2020 End: 08-24-2022 take 1 capsule by mouth once daily Venlafaxine 75 mg capsule,extended release 24hr Discontinued 75 mg PO DAILY March 02, 2021 12:00am August 24, 2022 5:15pm Start: 10-10-2016 End: 01-18-2017 take 3 tablets by mouth once daily EFFEXOR XR 75 MG [id number] Three tablets by mouth daily VENLAFAXINE HCL [id number] Alba Dukes LPN Start: 10-10-2016 End: 01-18-2017 take 3 tablets by mouth once daily EFFEXOR XR 75 MG [id number] Three tablets by mouth daily VENLAFAXINE HCL [id number] Kee Bagley MD Start: 10-10-2016 take 3 tablets by mo uth once daily EFFEXOR XR 75 MG [id number] Three tablets by mouth daily VENLAFAXINE HCL [id number] Alba Dukes ELEPHANT KEEPER Start: 01-03-2016 End: 08-01-2017 take 3 tablets [...] (20 sources) Dependence on supplemental oxygen; Translations: [Mtcil-we-qetjnpn respiratory failure] Onset: 7 10-19-2016 Chronic Sprains [...] and Bladderon 025 Kidney and Bladder Normal [facility] Neurology Visit Reporton Neurology Visit Report Normal [facility] KEPPRA (LEVETIRACETAM)on KEPPRA 66.1 ug/mL Abnormal 10.0-40.0 [facility] Comment on above: Result Comment: Perf ormed at: - [facility] [id number] Director: Azalia Rosen MD, Phone: [phone] Performed By: #### L 503.5510, L3310.0000 ####[facility] [address] [place], [place], [id number] Immunofixation Urineon 01-01 MARCELA Urine Comment Normal . [facility] Comment on above: Result Comment: No m onoclonality detected.Performed at: - [facility] [id number] Director: Eliseo Yañez PhD, Phone: [phone] Performed By: #### L 3600.4030 ####[facility] [address] [place], [address] Urine Cultureon 12-31-2024 URC Normal [facility] Comment on above: Performed By: #### L 400.0001, M100.2200 ####[facility] [address] [place], [place], [id number] Absolute lymphocyte countOrd ered By: Ysabel Laly on 12-29-2024 Lymphocytes Auto (Unsp spec) [#/Vol] 1.75 10*3/uL 0.83-4.51 [facility] Absolute neutrophil countOrd ered By: Ysabel Laly on 12-29-2024 Neutrophils (Bld) [#/Vol] 3.4 10*3/uL 2.0-7.7 [facility] Ammoniaon 12-29-2024 Ammonia (P) [Moles/Vol] 36.3 umol/L Normal 11-51 [facility] Comment on above: Performed By: #### L 503.5510, L3310.0000 ####[facility] [address] [place], [place], [id number] Anion gap in Serum or Plasma Ordered By: Ysabel [place] on 12-29-2024 Anion gap [Moles/Vol] 9 mmol/L 5-[address] [facility] Automated lymphocyte count a s percentage of total leukocytesOrdered By: Ysabel Laly on 12-29-2024 Lymphocytes/100 WBC Auto (Unsp spec) 30.2 % 19-41 [facility] BUN/creatinine ratioOrdered By: Ysabeljames Rufifn on 12-29-2024 Urea nitrogen/Creatinine [Mass ratio] 20.8 mg/mg High 10-20 [facility] Basophil percentageOrdered B y: Ysabel [place] on 12-29-2024 Basophils/100 WBC (Bld) 0.7 % 0-1 [facility] Bilirubin Test strip Ql (U)O rdered By: Ysabel [place] on 12-29-2024 Bilirubin Ql (U) Negative Negative [facility] Bilirubin, totalOrdered By: Ysabel Laly on 12-29-2024 Bilirubin [Mass/Vol] mg/dL 0.00-1.30 [facility] CBC W/Diff, Automatedon Absolute Lymph 1.75 X10 3/uL Normal 0.83-4.51 [facility] Comment on above: Performed By: #### L 506.1001, L100.0100, L501.9520, L500.4050 ####[facility] [address] [place], [address] Absolute Neut 3.4 X10 3/uL Normal 2.0-7.7 [facility] Comment on above: Performed By: #### L 506.1001, L100.0100, L501.9520, L500.4050 ####[facility] [address] [place], [address] Basophils/100 WBC (Bld) 0.7 % Normal 0-1 [facility] Comment on above: Performed By: #### L 506.1001, L100.0100, L501.9520, L500.4050 ####[facility] [address] [place], [address] Eosinophils/100 WBC (Bld) 3.5 % Normal 0-5 [facility] Comment on above: Performed By: #### L 506.1001, L100.0100, L501.9520, L500.4050 ####[facility] [address] [place], [address] Erythrocyte distribution width (RBC) [Ratio] 14.6 % Normal 11.6-14.6 [facility] Comment on above: Performed By: #### L 506.1001, L100.0100, L501.9520, L500.4050 ####[facility] [address] [place], [address] Hematocrit (Bld) [Volume fraction] 28.4 % Low 37-47 [facility] Comment on above: Performed By: #### L 506.1001, L100.0100, L501.9520, L500.4050 ####[facility] [address] [place], [address] Hemoglobin (Bld) [Mass/Vol] 8.2 g/dL Low 12.0-15.0 [facility] Comment on above: Performed By: #### L 506.1001, L100.0100, L501.9520, L500.4050 ####[facility] [address] [place], [address] IG% 0.300 Normal 0.0-0.9 [facility] Comment on above: Result Comment: IG% - Immature Granulocytes (promyelocytes, myelocytes andmetamyelocytes) > 1% indicates that a LEFT SHIFT is Present. Performed By: #### L 506.1001, L100.0100, L501.9520, L500.4050 ####[facility] [address] [place], [address] Lymphocytes/100 WBC (Bld) 30.2 % Normal 19-41 [facility] Comment on above: Performed By: #### L 506.1001, L100.0100, L501.9520, L500.4050 ####[facility] [address] [place], [address] MCH (RBC) [Entitic mass] 24.2 pg Low 27.0-32.0 [facility] Comment on above: Performed By: #### L 506.1001, L100.0100, L501.9520, L500.4050 ####[facility] [address] [place], [address] MCHC (RBC) [Mass/Vol] 28.9 g/dL Low 32-[address] [facility] Comment on above: Performed By: #### L 506.1001, L100.0100, L501.9520, L500.4050 ####[facility] [address] [place], [address] MCV (RBC) [Entitic vol] 83.8 fL Normal 81-99 [facility] Comment on above: Performed By: #### L 506.1001, L100.0100, L501.9520, L500.4050 ####[facility] [address] [place], [address] Monocytes/100 WBC (Bld) 7.4 % Normal 0-10 [facility] Comment on above: Performed By: #### L 506.1001, L100.0100, L501.9520, L500.4050 ####[facility] [address] [place], [address] Neutrophils/100 WBC (Bld) 57.9 % Normal 47-70 [facility] Comment on above: Performed By: #### L 506.1001, L100.0100, L501.9520, L500.4050 ####[facility] [address] [place], [address] Nucleated RBC (Bld) [#/Vol] 0 10*3/uL Normal 0-5 [facility] Comment on above: Performed By: #### L 506.1001, L100.0100, L501.9520, L500.4050 ####[facility] [address] [place], [address] Platelet mean volume (Bld) [Entitic vol] 11.1 fL Normal 6.2-12.0 [facility] Comment on above: Performed By: #### L 506.1001, L100.0100, L501.9520, L500.4050 ####[facility] [address] [place], [address] Platelets (Bld) [#/Vol] 244 10*3/uL Normal 150-450 [facility] Comment on above: Performed By: #### L 506.1001, L100.0100, L501.9520, L500.4050 ####[facility] [address] [place], [address] RBC (Bld) [#/Vol] 3.39 10*6/uL Low 4.2-5.4 [facility] Comment on above: Performed By: #### L 506.1001, L100.0100, L501.9520, L500.4050 ####[facility] [address] [place], [address] RDW SD 44.8 fl High 35.1-43.9 [facility] Comment on above: Performed By: #### L 506.1001, L100.0100, L501.9520, L500.4050 ####[facility] [address] [place], [address] WBC (Bld) [#/Vol] 5.8 10*3/uL Normal 4.4-11.0 [facility] Comment on above: Performed By: #### L 506.1001, L100.0100, L501.9520, L500.4050 ####[facility] [address] [place], [address] Carbon dioxide, total [Moles /volume] in Central venous bloodOrdered By: Ysabel Ruffin on 12-29-2024 CO2 [Moles/Vol] 29.0 mmol/L 21.0-32.0 [facility] Chloride assayOrdered By: Wilman Ruffin on 12-29-2024 Chloride [Moles/Vol] 101 mmol/L 98-108 [facility] Comprehensive Metabolic Prof ilon 12-29-2024 Albumin [Mass/Vol] 3.8 g/dL Normal 3.5-5.0 [facility] Comment on above: Performed By: #### L 506.1001, L100.0100, L501.9520, L500.4050 ####[facility] [address] [place], [address] Albumin/Globulin [Mass ratio] 1.2 {ratio} Normal 0.9-2.4 [facility] Comment on above: Performed By: #### L 506.1001, L100.0100, L501.9520, L500.4050 ####[facility] [address] [place], [address] ALK PHOS 106 U/L High 35-104 [facility] Comment on above: Performed By: #### L 506.1001, L100.0100, L501.9520, L500.4050 ####[facility] [address] [place], [address] ALT [Catalytic activity/Vol] 9 U/L Normal <=34 [facility] Comment on above: Performed By: #### L 506.1001, L100.0100, L501.9520, L500.4050 ####[facility] [address] [place], [address] AST [Catalytic activity/Vol] 36 U/L High <=31 [facility] Comment on above: Performed By: #### L 506.1001, L100.0100, L501.9520, L500.4050 ####[facility] [address] [place], [address] BUN/CRE 20.8 RATIO High 10-20 [facility] Comment on above: Performed By: #### L 506.1001, L100.0100, L501.9520, L500.4050 ####[facility] [address] [place], [address] Calcium [Mass/Vol] 9.2 mg/dL Normal 7.6-11.0 [facility] Comment on above: Performed By: #### L 506.1001, L100.0100, L501.9520, L500.4050 ####[facility] [address] [place], [address] Chloride [Moles/Vol] 101 mmol/L Normal 98-108 [facility] Comment on above: Performed By: #### L 506.1001, L100.0100, L501.9520, L500.4050 ####[facility] [address] [place], [address] CO2 [Moles/Vol] 29.0 mmol/L Normal 21.0-32.0 [facility] Comment on above: Performed By: #### L 506.1001, L100.0100, L501.9520, L500.4050 ####[facility] [address] [place], [address] Creatinine [Mass/Vol] 0.83 mg/dL Normal 0.70-1.[address] [facility] Comment on above: Performed By: #### L 506.1001, L100.0100, L501.9520, L500.4050 ####[facility] [address] [place], [address] GAP 9 Normal 5-15 [facility] Comment on above: Performed By: #### L 506.1001, L100.0100, L501.9520, L500.4050 ####[facility] [address] [place], [address] GFR/1.73 sq M.predicted among non-blacks MDRD (S/P/Bld) [Vol rate/Area] 82 mL/min/{1.73_m2} Normal >60 [facility] Comment on above: Result Comment: mL/m in/1.73m2 CKD-EPI Creatinine Equation (2020) Performed By: #### L 506.1001, L100.0100, L501.9520, L500.4050 ####[facility] [address] [place], [address] Globulin (S) [Mass/Vol] 3.3 g/dL Normal 2.2-4.2 [facility] Comment on above: Performed By: #### L 506.1001, L100.0100, L501.9520, L500.4050 ####[facility] [address] [place], [address] Glucose [Mass/Vol] 116 mg/dL High 70-99 [facility] Comment on above: Performed By: #### L 506.1001, L100.0100, L501.9520, L500.4050 ####[facility] [address] [place], [address] Potassium [Moles/Vol] 4.4 mmol/L Normal 3.3-5.[address] [facility] Comment on above: Performed By: #### L 506.1001, L100.0100, L501.9520, L500.4050 ####[facility] [address] [place], [address] Sodium [Moles/Vol] 139 mmol/L Normal 133-145 [facility] Comment on above: Performed By: #### L 506.1001, L100.0100, L501.9520, L500.4050 ####[facility] [address] [place], [address] T BILI < 0.15 Normal 0.00-1.30 [facility] Comment on above: Performed By: #### L 506.1001, L100.0100, L501.9520, L500.4050 ####[facility] [address] [place], [address] T PROT 7.1 g/dL Normal 5.9-8.4 [facility] Comment on above: Performed By: #### L 506.1001, L100.0100, L501.9520, L500.4050 ####[facility] [address] [place], [address] Urea nitrogen [Mass/Vol] 17 mg/dL Normal 4-19 [facility] Comment on above: Performed By: #### L 506.1001, L100.0100, L501.9520, L500.4050 ####[facility] [address] [place], [address] ALB Normal 3.5-5.0 [facility] Comment on above: Result Comment: DUP Performed By: #### L 500.4050 ####[facility] [address] [place], [address] ALK PHOS Normal 35-104 [facility] Comment on above: Result Comment: DUP Performed By: #### L 500.4050 ####[facility] [address] [place], [address] ALT Normal <=34 [facility] Comment on above: Result Comment: DUP Performed By: #### L 500.4050 ####[facility] [address] [place], [address] AST Normal <=31 [facility] Comment on above: Result Comment: DUP Performed By: #### L 500.4050 ####[facility] [address] [place], [address] BUN Normal 4-19 [facility] Comment on above: Result Comment: DUP Performed By: #### L 500.4050 ####[facility] [address] [place], [address] BUN/CRE Normal 10-20 [facility] Comment on above: Result Comment: DUP Performed By: #### L 500.4050 ####[facility] [address] [place], [address] Calcium Normal 7.6-11.0 [facility] Comment on above: Result Comment: DUP Performed By: #### L 500.4050 ####[facility] [address] [place], [address] CL Normal 98-108 [facility] Comment on above: Result Comment: DUP Performed By: #### L 500.4050 ####[facility] [address] [place], [address] CO2 Normal 21.0-32.0 [facility] Comment on above: Result Comment: DUP Performed By: #### L 500.4050 ####[facility] [address] [place], [address] CREAT,SERUM Normal 0.70-1.20 [facility] Comment on above: Result Comment: DUP Performed By: #### L 500.4050 ####[facility] [address] [place], [address] eGFR Normal >60 [facility] Comment on above: Result Comment: DUP Performed By: #### L 500.4050 ####[facility] [address] [place], [address] GAP Normal 5-15 [facility] Comment on above: Result Comment: DUP Performed By: #### L 500.4050 ####[facility] [address] [place], [address] GLU Normal 70-99 [facility] Comment on above: Result Comment: DUP Performed By: #### L 500.4050 ####[facility] [address] [place], [address] Potassium Normal 3.3-5.1 [facility] Comment on above: Result Comment: DUP Performed By: #### L 500.4050 ####[facility] [address] [place] [place], [address] T BILI Normal 0.00-1.30 [facility] Comment on above: Result Comment: DUP Performed By: #### L 500.4050 ####[facility] [address] [place], [address] T PROT Normal 5.9-8.4 [facility] Comment on above: Result Comment: DUP Performed By: #### L 500.4050 ####[facility] [address] [place], [address] Comprehensive Metabolic Profil Normal 133-145 [facility] Comment on above: Result Comment: DUP Performed By: #### L 500.4050 ####[facility] [address] [place], [address] Eosinophil percentageOrdered By: Ysabel Ruffin on 12-29-2024 Eosinophils/100 WBC (Bld) 3.5 % 0-5 [facility] Erythrocyte distribution wid th ratioOrdered By: Ysabel Ruffin on 12-29-2024 Erythrocyte distribution width (RBC) [Ratio] 14.6 % 11.6-14.6 [facility] Erythrocyte distribution wid th standard deviationOrdered By: Ysabel Ruffin on 12-29-2024 Erythrocyte distribution width (RBC) [Ratio] 44.8 fl High 35.1-43.9 [facility] Glomerular filtration rate ( GFR) estimation/1.73 sq m using serum, plasma, or whole bOrdered By: Ysabel Ruffin on 12-29-2024 GFR/1.73 sq M.predicted among non-blacks MDRD (S/P/Bld) [Vol rate/Area] 82 mL/min/{1.73_m2} >60 [facility] Comment on above: mL/min/1.73m2 CKD-EP I Creatinine Equation (2020) Hematocrit Auto (Bld) [Volum e fraction]Ordered By: Ysabel Ruffin on 12-29-2024 Hematocrit (Bld) [Volume fraction] 28.4 % Low 37-47 [facility] Hemoglobin measurementOrdere d By: Ysabel Ruffin on 12-29-2024 Hemoglobin (Bld) [Mass/Vol] 8.2 g/dL Low 12.0-15.0 [facility] Immature granulocytes/100 WB C Auto (Bld)Ordered By: Ysabel Ruffin on 12-29-2024 Immature granulocytes/100 WBC (Bld) 0.300 % 0.0-0.9 [facility] Comment on above: IG% - Immature Granu locytes (promyelocytes, myelocytes and metamyelocytes) > 1% indicates that a LEFT SHIFT is Present. Ketones Test strip Ql (U)Ord ered By: Ysabel Ruffin on 12-29-2024 Ketones Ql (U) Negative Negative [facility] - Chemistry and C hemistry - challengeOrdered By: Ysabel Ruffin on 12-29-2024 AST [Catalytic activity/Vol] 36 U/L High <32 [facility] LevetiracetamOrdered By: Luis F Castro on 12-29-2024 levETIRAcetam [Mass/Vol] 66.1 ug/mL High 10.0-40.0 [facility] Comment on above: Performed at: [address] [id number] Director: Azalia Rosen MD, Phone: [phone] MCV (mean corpuscular volume ) determinationOrdered By: Ysabel Ruffin on 12-29-2024 MCV (RBC) [Entitic vol] 83.8 fL 81-99 [facility] Mean corpuscular hemoglobin (MCH) determinationOrdered By: Ysabel Ruffin on 12-29-2024 MCH (RBC) [Entitic mass] 24.2 pg Low 27.0-32.0 [facility] Mean corpuscular hemoglobin concentration (MCHC) determinationOrdered By: Ysabel Ruffin on 12-29-2024 MCHC (RBC) [Mass/Vol] 28.9 g/dL Low 32-[address] [facility] Mean platelet volume determi nationOrdered By: Ysabel Ruffin on 12-29-2024 Platelet mean volume (Bld) [Entitic vol] 11.1 fL 6.2-12.0 [facility] Microscopic analysis of urin e for red blood cells (RBC)Ordered By: Ysabel Ruffin on 12-29-2024 Microscopic analysis of urine for red blood cells (RBC) 0 SEEN /hpf 0-5 [facility] Monocyte percentageOrdered B y: Ysabel Ruffin on 12-29-2024 Monocytes/100 WBC (Bld) 7.4 % 0-10 [facility] Mucus LM Ql (Urine sed)Order ed By: Ysabel Ruffin on 12-29-2024 Mucus Ql (Urine sed) 0 SEEN /hpf [facility] Neutrophil percentageOrdered By: Ysabel Ruffin on 12-29-2024 Neutrophils/100 WBC (Bld) 57.9 % 47-70 [facility] Nitrite Test strip Ql (U)Ord ered By: Ysabel Ruffin on 12-29-2024 Nitrite Ql (U) Positive High Negative [facility] Nucleated red blood cell per centageOrdered By: Ysabel Ruffin on 12-29-2024 Nucleated RBC/100 WBC (Bld) [Ratio] 0 % 0-5 [facility] Platelet countOrdered By: Wilman Ruffin on 12-29-2024 Platelets (Bld) [#/Vol] 244 10*3/uL 150-450 [facility] Potassium measurement (mass/ volume)Ordered By: Ysabel Ruffin on 12-29-2024 Potassium (Unsp spec) [Mass/Vol] 4.4 mmol/L 3.3-5.1 [facility] Protein Test strip Ql (U)Ord ered By: Ysabel Ruffin on 12-29-2024 Protein Ql (U) 15 mg/dl High Negative [facility] RBC Auto (Bld) [#/Vol]Ordere d By: Ysabel Ruffin on 12-29-2024 RBC (Bld) [#/Vol] 3.39 10*6/uL Low 4.2-5.4 [facility] Serum creatinine measurement (mass/volume)Ordered By: Ysabel Ruffin on 12-29-2024 Creatinine [Mass/Vol] 0.83 mg/dL 0.70-1.[address] [facility] Serum globulin measurementOr dered By: Ysabel Ruffin on 12-29-2024 Globulin (S) [Mass/Vol] 3.3 g/dL 2.2-4.2 [facility] Serum glucose measurement (m ass/volume)Ordered By: Ysabel Ruffin on 12-29-2024 Glucose [Mass/Vol] 116 mg/dL High 70-99 [facility] Serum or plasma alanine moran otransferase (ALT) measurementOrdered By: Ysabel Ruffin on 12-29-2024 ALT [Catalytic activity/Vol] 9 U/L <35 [facility] Serum or plasma albumin paddy urement (mass/volume)Ordered By: Ysabel Ruffin on 12-29-2024 Albumin [Mass/Vol] 3.8 g/dL 3.5-5.0 [facility] Serum or plasma albumin/glob ulin mass ratioOrdered By: Ysabel Ruffin on 12-29-2024 Albumin/Globulin [Mass ratio] 1.2 {ratio} 0.9-2.4 [facility] Serum or plasma alkaline jeffery sphatase measurementOrdered By: Ysabel Ruffin on 12-29-2024 ALP [Catalytic activity/Vol] 106 U/L High 35-104 [facility] Serum or plasma calcium paddy urement (mass/volume)Ordered By: Ysabel Ruffin on 12-29-2024 Calcium [Mass/Vol] 9.2 mg/dL 7.6-11.0 [facility] Serum or plasma urea nitroge n measurement (mass/volume)Ordered By: Ysabel Ruffin on 12-29-2024 Urea nitrogen [Mass/Vol] 17 mg/dL 4-19 [facility] Sodium levelOrdered By: Whitley Ruffin on 12-29-2024 Sodium [Moles/Vol] 139 mmol/L 133-145 [facility] Squamous epithelial cells de tection in urine sediment by light microscopyOrdered By: Ysabel Ruffin on 12-29-2024 Epithelial cells.squamous LM Ql (Urine sed) 0-5 SEEN /hpf 5-10 [facility] TSH DL <= 0.005 mIU/L QnOrde red By: Ysabel Ruffin on 12-29-2024 TSH Qn 2.880 uIU/mL 0.300-4.20 0 [facility] Thyroid Stim Hormone (TSH)on 12-29-2024 TSH 2.880 uIU/mL Normal 0.300-4.20 0 [facility] Comment on above: Performed By: #### L 506.1001, L100.0100, L501.9520, L500.4050 ####[facility] [address] [place], [address] Total proteinOrdered By: Young Ruffin on 12-29-2024 Protein [Mass/Vol] 7.1 g/dL 5.9-8.4 [facility] Transitional cells detection in urine sediment by light microscopyOrdered By: Ysabel Ruffin on 12-29-2024 Transitional cells LM Ql (Urine sed) 0-5 SEEN /hpf 0-5 [facility] Urinalysis, Completeon 12-29 EPI,TRANSITION 0-5 SEEN Normal 0-5 [facility] Comment on above: Order Comment: LU CTOR TO SPECIFY Performed By: #### L 400.0001, ####[facility] [address] [place], [address] WBC 25-50 SEEN Normal 0-5 [facility] Comment on above: Order Comment: LU CTOR TO SPECIFY Performed By: #### L 400.0001, M1.0 ####[facility] [address] [place], [address] BACTERIA 3+ /hpf Normal None Seen [facility] Comment on above: Order Comment: LU CTOR TO SPECIFY Performed By: #### L 400.0001, M1.0 ####[facility] [address] [place], [address] EPI,SQUAMOUS 0-5 SEEN Normal 5-10 [facility] Comment on above: Order Comment: COLLE CTOR TO SPECIFY Performed By: #### L 400.0001, M100.2200 ####[facility] [address] [place], [address] BACTERIA Normal None Seen [facility] Comment on above: Order Comment: COLLE CTOR TO SPECIFY Result Comment: DUPL ICATE Performed By: #### L 400.0001 ####[facility] [address] [place], [address] BILIRUBIN URINE Normal Negative [facility] Comment on above: Order Comment: LU CTOR TO SPECIFY Result Comment: DUPL ICATE Performed By: #### L 400.0001 ####[facility] [address] [place], [address] Clarity (U) Normal Clear [facility] Comment on above: Order Comment: LU CTOR TO SPECIFY Result Comment: DUPL ICATE Performed By: #### L 400.0001 ####[facility] [address] [place], [address] Color (U) Normal Yellow [facility] Comment on above: Order Comment: LU CTOR TO SPECIFY Result Comment: DUPL ICATE Performed By: #### L 400.0001 ####[facility] [address] [place], [address] EPI,SQUAMOUS Normal 5-10 [facility] Comment on above: Order Comment: LU CTOR TO SPECIFY Result Comment: DUPL ICATE Performed By: #### L 400.0001 ####[facility] [address] [place], [address] GLUCOSE, UR Normal Normal [facility] Comment on above: Order Comment: COLLE CTOR TO SPECIFY Result Comment: DUPL ICATE Performed By: #### L 400.0001 ####[facility] [address] [place], [address] KETONE UR Normal Negative [facility] Comment on above: Order Comment: COLLE CTOR TO SPECIFY Result Comment: DUPL ICATE Performed By: #### L 400.0001 ####[facility] [address] [place], [address] LEUK ESTERASE Normal Negative [facility] Comment on above: Order Comment: COLLE CTOR TO SPECIFY Result Comment: DUPL ICATE Performed By: #### L 400.0001 ####[facility] [address] [place], [address] Mucus Ql (Urine sed) Normal [facility] Comment on above: Order Comment: COLLE CTOR TO SPECIFY Result Comment: DUPL ICATE Performed By: #### L 400.0001 ####[facility] [address] [place], [address] Mucus Ql (Urine sed) 0 SEEN Normal [facility] Comment on above: Order Comment: COLLE CTOR TO SPECIFY Performed By: #### L 400.0001, M100.2200 ####[facility] [address] [place], [address] Nitrite Ql (U) Normal Negative [facility] Comment on above: Order Comment: COLLE CTOR TO SPECIFY Result Comment: DUPL ICATE Performed By: #### L 400.0001 ####[facility] [address] [place], [address] OCCULT BLOOD-UR Normal Negative [facility] Comment on above: Order Comment: COLLE CTOR TO SPECIFY Result Comment: DUPL ICATE Performed By: #### L 400.0001 ####[facility] [address] [place], [address] pH UR Normal 5.0 - 8.0 [facility] Comment on above: Order Comment: COLLE CTOR TO SPECIFY Result Comment: DUPL ICATE Performed By: #### L 400.0001 ####[facility] [address] [place], [address] PROT DIPSTX Normal Negative [facility] Comment on above: Order Comment: COLLE CTOR TO SPECIFY Result Comment: DUPL ICATE Performed By: #### L 400.0001 ####[facility] [address] [place], [address] RBC Normal 0-5 [facility] Comment on above: Order Comment: COLLE CTOR TO SPECIFY Result Comment: DUPL ICATE Performed By: #### L 400.0001 ####[facility] [address] [place], [address] RBC 0 SEEN Normal 0-5 [facility] Comment on above: Order Comment: COLLE CTOR TO SPECIFY Performed By: #### L 400.0001, M100.2200 ####[facility] [address] [place], [address] SP.GR. DIPSTX Normal 1.002-1.03 0 [facility] Comment on above: Order Comment: COLLE CTOR TO SPECIFY Result Comment: DUPL ICATE Performed By: #### L 400.0001 ####[facility] [address] [place], [address] UR Preservative Normal [facility] Comment on above: Order Comment: COLLE CTOR TO SPECIFY Result Comment: DUPL ICATE Performed By: #### L 400.0001 ####[facility] [address] [place], [address] UROBILI Normal Normal [facility] Comment on above: Order Comment: COLLE CTOR TO SPECIFY Result Comment: DUPL ICATE Performed By: #### L 400.0001 ####[facility] [address] [place], [address] WBC Normal 0-5 [facility] Comment on above: Order Comment: COLLE CTOR TO SPECIFY Result Comment: DUPL ICATE Performed By: #### L 400.0001 ####[facility] [address] [place], [address] Urine clarityOrdered By: Young Ruffin on 12-29-2024 Clarity (U) Sl. Cloudy Clear [facility] Urine color determinationOrd ered By: Ysabel Ruffin on 12-29-2024 Color (U) Yellow Yellow [facility] Urine cultureOrdered By: Young Ruffin on 12-29-2024 Bacteria identified Cx Nom (U) Escherichia coli Abnormal [facility] Urine glucose detectionOrder ed By: Ysabel Ruffin on 12-29-2024 Glucose Ql (U) Normal mg/dl Normal [facility] Urine leukocyte esterase det ection by dipstickOrdered By: Ysabel Ruffin on 12-29-2024 Leukocyte esterase Test strip Ql (U) 500 /ul High Negative [facility] Urine pHOrdered By: Ysabel Mendoza indortiz on 12-29-2024 pH (U) 6.0 [pH] 5.0 - 8.0 [facility] Urine sediment bacteria coun t by microscopy (number/high power field)Ordered By: Ysabel Ruffin on 12-29-2024 Bacteria LM.HPF (Urine sed) [#/Area] 3 /[HPF] None Seen [facility] Urine specific gravity measu rementOrdered By: Ysabel Ruffin on 12-29-2024 Specific gravity (U) [Rel density] 1.010 1.002-1.03 0 [facility] Urine urobilinogen measureme ntOrdered By: Ysabel Ruffin on 12-29-2024 Urobilinogen Ql (U) Normal mg/dl Normal [facility] Venous blood ammonia measure mentOrdered By: Chapincito Castro on 12-29-2024 Ammonia (P) [Moles/Vol] 36.3 umol/L 11-51 [facility] Vitamin D,25 Hydroxyon 12-29 Vitamin D 25-OH 13.4 ng/mL Low 30-100 [facility] Comment on above: Result Comment: Ethel min D StatusDeficiency: <20 ng/mL (50nmol/L)Insufficiency: 20-30 ng/mL (50-75 nmol/L)Sufficiency: 30-100 ng/mL (75-250 nmol/L)Toxicity: >100 ng/mL (>250 nmol/L) Performed By: #### L 506.1001, L100.0100, L501.9520, L500.4050 ####[facility] [address] [place], [address] White blood cell (WBC) count Ordered By: Ysabel Ruffin on 12-29-2024 WBC (Bld) [#/Vol] 5.8 10*3/uL 4.4-11.0 [facility] White blood cell countOrdere d By: Ysabel Ruffin on 12-29-2024 White blood cell count 25-50 SEEN /hpf 0-5 [facility] Internal Medicine Office Vis iton 12-26-2024 Internal Medicine Office Visit Normal [facility] Emergency Department Summary on 11-20-2024 Emergency Department Summary Normal [facility] Hand Min 3 Viewson 5 Hand Min 3 Views Normal [facility] Wrist min 3 Viewson 11-21-19 25 Wrist min 3 Views Normal [facility] Absolute lymphocyte countOrd ered By: Oli Shearer on 11-14-2024 Lymphocytes Auto (Unsp spec) [#/Vol] 1.57 10*3/uL 0.83-4.51 [facility] Absolute neutrophil countOrd ered By: Oli Shearer on 11-14-2024 Neutrophils (Bld) [#/Vol] 4.5 10*3/uL 2.0-7.7 [facility] Automated lymphocyte count a s percentage of total leukocytesOrdered By: Oli Shearer on 11-14-2024 Lymphocytes/100 WBC Auto (Unsp spec) 23.3 % 19-41 [facility] Basophil percentageOrdered B y: Oli Shearer on 11-14-2024 Basophils/100 WBC (Bld) 0.4 % 0-1 [facility] Brain/Head W/WO Contraston 0 11-14-2024 Brain/Head W/WO Contrast Normal [facility] CBC W/Diff, Automatedon 04-2 Absolute Lymph 1.57 X10 3/uL Normal 0.83-4.51 [facility] Comment on above: Performed By: #### L 100.0100 ####[facility] [address] [place], [address] Absolute Neut 4.5 X10 3/uL Normal 2.0-7.7 [facility] Comment on above: Performed By: #### L 100.0100 ####[facility] [address] [place], [address] Basophils/100 WBC (Bld) 0.4 % Normal 0-1 [facility] Comment on above: Performed By: #### L 100.0100 ####[facility] [address] [place], [address] Eosinophils/100 WBC (Bld) 1.9 % Normal 0-5 [facility] Comment on above: Performed By: #### L 100.0100 ####[facility] [address] [place], [address] Erythrocyte distribution width (RBC) [Ratio] 14.6 % Normal 11.6-14.6 [facility] Comment on above: Performed By: #### L 100.0100 ####[facility] [address] [place], [address] Hematocrit (Bld) [Volume fraction] 28.7 % Low 37-47 [facility] Comment on above: Performed By: #### L 100.0100 ####[facility] [address] [place], [address] Hemoglobin (Bld) [Mass/Vol] 8.4 g/dL Low 12.0-15.0 [facility] Comment on above: Performed By: #### L 100.0100 ####[facility] [address] [place], [address] IG% 0.300 Normal 0.0-0.9 [facility] Comment on above: Result Comment: IG% - Immature Granulocytes (promyelocytes, myelocytes andmetamyelocytes) > 1% indicates that a LEFT SHIFT is Present. Performed By: #### L 100.0100 ####[facility] [address] [place], [address] Lymphocytes/100 WBC (Bld) 23.3 % Normal 19-41 [facility] Comment on above: Performed By: #### L 100.0100 ####[facility] [address] [place], [address] MCH (RBC) [Entitic mass] 24.9 pg Low 27.0-32.0 [facility] Comment on above: Performed By: #### L 100.0100 ####[facility] [address] [place], [address] MCHC (RBC) [Mass/Vol] 29.3 g/dL Low 32-[address] [facility] Comment on above: Performed By: #### L 100.0100 ####[facility] [address] [place], [address] MCV (RBC) [Entitic vol] 85.2 fL Normal 81-99 [facility] Comment on above: Performed By: #### L 100.0100 ####[facility] [address] [place], [address] Monocytes/100 WBC (Bld) 7.1 % Normal 0-10 [facility] Comment on above: Performed By: #### L 100.0100 ####[facility] [address] [place], [address] Neutrophils/100 WBC (Bld) 67.0 % Normal 47-70 [facility] Comment on above: Performed By: #### L 100.0100 ####[facility] [address] [place], [address] Nucleated RBC (Bld) [#/Vol] 0 10*3/uL Normal 0-5 [facility] Comment on above: Performed By: #### L 100.0100 ####[facility] [address] [place], [address] Platelet mean volume (Bld) [Entitic vol] 9.9 fL Normal 6.2-12.0 [facility] Comment on above: Performed By: #### L 100.0100 ####[facility] [address] [place], [address] Platelets (Bld) [#/Vol] 195 10*3/uL Normal 150-450 [facility] Comment on above: Performed By: #### L 100.0100 ####[facility] [address] [place], [address] RBC (Bld) [#/Vol] 3.37 10*6/uL Low 4.2-5.4 [facility] Comment on above: Performed By: #### L 100.0100 ####[facility] [address] [place], [address] RDW SD 45.1 fl High 35.1-43.9 [facility] Comment on above: Performed By: #### L 100.0100 ####[facility] [address] [place], [address] WBC (Bld) [#/Vol] 6.7 10*3/uL Normal 4.4-11.0 [facility] Comment on above: Performed By: #### L 100.0100 ####[facility] [address] [place], [address] Eosinophil percentageOrdered By: Oli Shearer on 11-14-2024 Eosinophils/100 WBC (Bld) 1.9 % 0-5 [facility] Erythrocyte distribution wid th ratioOrdered By: Oli Shearer on 11-14-2024 Erythrocyte distribution width (RBC) [Ratio] 14.6 % 11.6-14.6 [facility] Erythrocyte distribution wid th standard deviationOrdered By: Oli Shearer on 11-14-2024 Erythrocyte distribution width (RBC) [Ratio] 45.1 fl High 35.1-43.9 [facility] Hematocrit Auto (Bld) [Volum e fraction]Ordered By: Oli Shearer on 11-14-2024 Hematocrit (Bld) [Volume fraction] 28.7 % Low 37-47 [facility] Hemoglobin measurementOrdere d By: Oli Shearer on 11-14-2024 Hemoglobin (Bld) [Mass/Vol] 8.4 g/dL Low 12.0-15.0 [facility] Immature granulocytes/100 WB C Auto (Bld)Ordered By: Oli Shearer on 11-14-2024 Immature granulocytes/100 WBC (Bld) 0.300 % 0.0-0.9 [facility] Comment on above: IG% - Immature Granu locytes (promyelocytes, myelocytes and metamyelocytes) > 1% indicates that a LEFT SHIFT is Present. MCV (mean corpuscular volume ) determinationOrdered By: Oli Shearer on 11-14-2024 MCV (RBC) [Entitic vol] 85.2 fL 81-99 [facility] Mean corpuscular hemoglobin (MCH) determinationOrdered By: Oli Shearer on 11-14-2024 MCH (RBC) [Entitic mass] 24.9 pg Low 27.0-32.0 [facility] Mean corpuscular hemoglobin concentration (MCHC) determinationOrdered By: Oli Shearer on 11-14-2024 MCHC (RBC) [Mass/Vol] 29.3 g/dL Low 32-[address] [facility] Mean platelet volume determi nationOrdered By: Oli Shearer on 11-14-2024 Platelet mean volume (Bld) [Entitic vol] 9.9 fL 6.2-12.0 [facility] Monocyte percentageOrdered B y: Oli Shearer on 11-14-2024 Monocytes/100 WBC (Bld) 7.1 % 0-10 [facility] Neutrophil percentageOrdered By: Oli Shearer on 11-14-2024 Neutrophils/100 WBC (Bld) 67.0 % 47-70 [facility] Nucleated red blood cell per centageOrdered By: Oli Shearer on 11-14-2024 Nucleated RBC/100 WBC (Bld) [Ratio] 0 % 0-5 [facility] Platelet countOrdered By: Michael castillo Manfred on 11-14-2024 Platelets (Bld) [#/Vol] 195 10*3/uL 150-450 [facility] RBC Auto (Bld) [#/Vol]Ordere d By: Oli Shearer on 11-14-2024 RBC (Bld) [#/Vol] 3.37 10*6/uL Low 4.2-5.4 [facility] White blood cell (WBC) count Ordered By: Oli Shearer on 11-14-2024 WBC (Bld) [#/Vol] 6.7 10*3/uL 4.4-11.0 [facility] Internal Medicine Office Vis iton 11-12-2024 Internal Medicine Office Visit Normal [facility] Urine Cultureon 09-03-2024 URC Normal [facility] Comment on above: Performed By: #### L 400.0001, M100.2200 ####[facility] [address] [place], [address] Bilirubin Test strip Ql (U)O rdered By: Luke Tirado on 09-01-2024 Bilirubin Ql (U) Negative Negative [facility] Ketones Test strip Ql (U)Ord ered By: Luke Tirado on 09-01-2024 Ketones Ql (U) 5 mg/dl High Negative [facility] Microscopic analysis of urin e for red blood cells (RBC)Ordered By: Luke Tirado on 09-01-2024 Microscopic analysis of urine for red blood cells (RBC) 0-5 SEEN /hpf 0-5 [facility] Mucus LM Ql (Urine sed)Order ed By: Luke Tirado on 09-01-2024 Mucus Ql (Urine sed) 0 SEEN /hpf [facility] Nitrite Test strip Ql (U)Ord ered By: Luke Tirado on 09-01-2024 Nitrite Ql (U) Positive High Negative [facility] Protein Test strip Ql (U)Ord ered By: Luke Tirado on 09-01-2024 Protein Ql (U) 30 mg/dl High Negative [facility] Squamous epithelial cells de tection in urine sediment by light microscopyOrdered By: Luke Tirado on 09-01-2024 Epithelial cells.squamous LM Ql (Urine sed) 0-5 SEEN /hpf 5-10 [facility] Urinalysis, Completeon 09-01 BACTERIA 1+ /hpf Normal None Seen [facility] Comment on above: Order Comment: Micro scopic field is filled. Other elements may beobscured.CLEAN CATCH Performed By: #### L 400.0001, M100.2200 ####[facility] [address] [place], [address] EPI,SQUAMOUS 0-5 SEEN Normal 5-10 [facility] Comment on above: Order Comment: Micro scopic field is filled. Other elements may beobscured.CLEAN CATCH Performed By: #### L 400.0001, M1.0 ####[facility] [address] [place], [address] RBC 0-5 SEEN Normal 0-5 [facility] Comment on above: Order Comment: Micro scopic field is filled. Other elements may beobscured.CLEAN CATCH Performed By: #### L 400.0001, M1.0 ####[facility] [address] [place], [address] WBC >100 SEEN Normal 0-5 [facility] Comment on above: Order Comment: Micro scopic field is filled. Other elements may beobscured.CLEAN CATCH Performed By: #### L 400.0001, M100.2200 ####[facility] [address] [place], [address] Mucus Ql (Urine sed) 0 SEEN Normal [facility] Comment on above: Order Comment: Micro scopic field is filled. Other elements may beobscured.CLEAN CATCH Performed By: #### L 400.0001, M100.2200 ####[facility] [address] [place], [address] Urine clarityOrdered By: Juan Diego Tirado on 09-01-2024 Clarity (U) Cloudy Clear [facility] Urine color determinationOrd ered By: Luke Tirado on 09-01-2024 Color (U) Yellow Yellow [facility] Urine cultureOrdered By: Juan Diego Tirado on 09-01-2024 Bacteria identified Cx Nom (U) Staphylococcus lugdunensis Abnormal [facility] Urine glucose detectionOrder ed By: Luke Tirado on 09-01-2024 Glucose Ql (U) Normal mg/dl Normal [facility] Urine leukocyte esterase det ection by dipstickOrdered By: Luke Tirado on 09-01-2024 Leukocyte esterase Test strip Ql (U) 500 /ul High Negative [facility] Urine pHOrdered By: Nusrat Tirado on 09-01-2024 pH (U) 6.0 [pH] 5.0 - 8.0 [facility] Urine sediment bacteria coun t by microscopy (number/high power field)Ordered By: Luke Tirado on 09-01-2024 Bacteria LM.HPF (Urine sed) [#/Area] 1 /[HPF] None Seen [facility] Urine specific gravity measu rementOrdered By: Luke Tirado on 09-01-2024 Specific gravity (U) [Rel density] 1.015 1.002-1.03 0 [facility] Urine urobilinogen measureme ntOrdered By: Luke Tirado on 09-01-2024 Urobilinogen Ql (U) Normal mg/dl Normal [facility] White blood cell countOrdere d By: Luke Tirado on 09-01-2024 White blood cell count >100 SEEN /hpf 0-5 [facility] Internal Medicine Office Vis iton 08-28-2024 Internal Medicine Office Visit Normal [facility] Basic Metabolic Profile (BMP )on 08-17-2024 BUN Normal 7-18 [facility] Comment on above: Result Comment: Canc elled via OM: Order cancelled - Patient discharged Performed By: #### L 500.2500, L100.0100 ####[facility] [address] [place], [address] BUN/CRE Normal 10-20 [facility] Comment on above: Result Comment: Canc elled via OM: Order cancelled - Patient discharged Performed By: #### L 500.2500, L100.0100 ####[facility] [address] [place], [address] CA,Total Normal 8.5-10.1 [facility] Comment on above: Result Comment: Canc elled via OM: Order cancelled - Patient discharged Performed By: #### L 500.2500, L100.0100 ####[facility] [address] [place], [address] CL Normal 98-107 [facility] Comment on above: Result Comment: Canc elled via OM: Order cancelled - Patient discharged Performed By: #### L 500.2500, L100.0100 ####[facility] [address] [place], [address] CO2 Normal 21.0-32.0 [facility] Comment on above: Result Comment: Canc elled via OM: Order cancelled - Patient discharged Performed By: #### L 500.2500, L100.0100 ####[facility] [address] [place], [address] CREAT,SERUM Normal 0.55-1.02 [facility] Comment on above: Result Comment: Canc elled via OM: Order cancelled - Patient discharged Performed By: #### L 500.2500, L100.0100 ####[facility] [address] [place], [address] EST GFR Normal >60 [facility] Comment on above: Result Comment: Canc elled via OM: Order cancelled - Patient discharged Performed By: #### L 500.2500, L100.0100 ####[facility] [address] [place], [address] EST GFR - AA Normal >60 [facility] Comment on above: Result Comment: Canc elled via OM: Order cancelled - Patient discharged Performed By: #### L 500.2500, L100.0100 ####[facility] [address] [place], [address] GAP Normal 5-15 [facility] Comment on above: Result Comment: Canc elled via OM: Order cancelled - Patient discharged Performed By: #### L 500.2500, L100.0100 ####[facility] [address] [place], [address] GLU Normal 74-106 [facility] Comment on above: Result Comment: Canc elled via OM: Order cancelled - Patient discharged Performed By: #### L 500.2500, L100.0100 ####[facility] [address] [place], [address] Potassium Normal 3.5-5.1 [facility] Comment on above: Result Comment: Canc elled via OM: Order cancelled - Patient discharged Performed By: #### L 500.2500, L100.0100 ####[facility] [address] [place], [address] Basic Metabolic Profile (BMP) Normal 136-145 [facility] Comment on above: Result Comment: Canc elled via OM: Order cancelled - Patient discharged Performed By: #### L 500.2500, L100.0100 ####[facility] [address] [place], [address] CBC W/Diff, Automatedon 07-24 Absolute Neut Normal 2.0-7.7 [facility] Comment on above: Result Comment: Canc elled via OM: Order cancelled - Patient discharged Performed By: #### L 500.2500, L100.0100 ####[facility] [address] [place], [address] HCT Normal 37-47 [facility] Comment on above: Result Comment: Canc elled via OM: Order cancelled - Patient discharged Performed By: #### L 500.2500, L100.0100 ####[facility] [address] [place], [address] HGB Normal 12.0-15.0 [facility] Comment on above: Result Comment: Canc elled via OM: Order cancelled - Patient discharged Performed By: #### L 500.2500, L100.0100 ####[facility] [address] [place], [address] MCH Normal 27.0-32.0 [facility] Comment on above: Result Comment: Canc elled via OM: Order cancelled - Patient discharged Performed By: #### L 500.2500, L100.0100 ####[facility] [address] [place], [address] MCHC Normal 32-36 [facility] Comment on above: Result Comment: Canc elled via OM: Order cancelled - Patient discharged Performed By: #### L 500.2500, L100.0100 ####[facility] [address] [place], [address] MCV Normal 81-99 [facility] Comment on above: Result Comment: Canc elled via OM: Order cancelled - Patient discharged Performed By: #### L 500.2500, L100.0100 ####[facility] [address] [place], [address] NEUT% Normal 47-70 [facility] Comment on above: Result Comment: Canc elled via OM: Order cancelled - Patient discharged Performed By: #### L 500.2500, L100.0100 ####[facility] [address] [place], [address] PLT Normal 150-450 [facility] Comment on above: Result Comment: Canc elled via OM: Order cancelled - Patient discharged Performed By: #### L 500.2500, L100.0100 ####[facility] [address] [place], [address] RBC Normal 4.2-5.4 [facility] Comment on above: Result Comment: Canc elled via OM: Order cancelled - Patient discharged Performed By: #### L 500.2500, L100.0100 ####[facility] [address] [place], [address] RDW CV Normal 11.6-14.6 [facility] Comment on above: Result Comment: Canc elled via OM: Order cancelled - Patient discharged Performed By: #### L 500.2500, L100.0100 ####[facility] [address] [place], [address] RDW SD Normal 35.1-43.9 [facility] Comment on above: Result Comment: Canc elled via OM: Order cancelled - Patient discharged Performed By: #### L 500.2500, L100.0100 ####[facility] [address] [place], [address] WBC Normal 4.4-11.0 [facility] Comment on above: Result Comment: Canc elled via OM: Order cancelled - Patient discharged Performed By: #### L 500.2500, L100.0100 ####[facility] [address] [place], [address] Basic Metabolic Profile (BMP )on 08-16-2024 BUN Normal 7-18 [facility] Comment on above: Result Comment: Canc elled via OM: Order cancelled - Patient discharged Performed By: #### L 100.0100, L500.2500 ####[facility] [address] [place], [address] BUN/CRE Normal 10-20 [facility] Comment on above: Result Comment: Canc elled via OM: Order cancelled - Patient discharged Performed By: #### L 100.0100, L500.2500 ####[facility] [address] [place], [address] CA,Total Normal 8.5-10.1 [facility] Comment on above: Result Comment: Canc elled via OM: Order cancelled - Patient discharged Performed By: #### L 100.0100, L500.2500 ####[facility] [address] [place], [address] CL Normal 98-107 [facility] Comment on above: Result Comment: Canc elled via OM: Order cancelled - Patient discharged Performed By: #### L 100.0100, L500.2500 ####[facility] [address] [place], [address] CO2 Normal 21.0-32.0 [facility] Comment on above: Result Comment: Canc elled via OM: Order cancelled - Patient discharged Performed By: #### L 100.0100, L500.2500 ####[facility] [address] [place], [address] CREAT,SERUM Normal 0.55-1.02 [facility] Comment on above: Result Comment: Canc elled via OM: Order cancelled - Patient discharged Performed By: #### L 100.0100, L500.2500 ####[facility] [address] [place], [address] EST GFR Normal >60 [facility] Comment on above: Result Comment: Canc elled via OM: Order cancelled - Patient discharged Performed By: #### L 100.0100, L500.2500 ####[facility] [address] [place], [address] EST GFR - AA Normal >60 [facility] Comment on above: Result Comment: Canc elled via OM: Order cancelled - Patient discharged Performed By: #### L 100.0100, L500.2500 ####[facility] [address] [place], [address] GAP Normal 5-15 [facility] Comment on above: Result Comment: Canc elled via OM: Order cancelled - Patient discharged Performed By: #### L 100.0100, L500.2500 ####[facility] [address] [place], [address] GLU Normal 74-106 [facility] Comment on above: Result Comment: Canc elled via OM: Order cancelled - Patient discharged Performed By: #### L 100.0100, L500.2500 ####[facility] [address] [place], [address] Potassium Normal 3.5-5.1 [facility] Comment on above: Result Comment: Canc elled via OM: Order cancelled - Patient discharged Performed By: #### L 100.0100, L500.2500 ####[facility] [address] [place], [address] Basic Metabolic Profile (BMP) Normal 136-145 [facility] Comment on above: Result Comment: Canc elled via OM: Order cancelled - Patient discharged Performed By: #### L 100.0100, L500.2500 ####[facility] [address] [place], [address] CBC W/Diff, Automatedon 01-2 Absolute Neut Normal 2.0-7.7 [facility] Comment on above: Result Comment: Canc elled via OM: Order cancelled - Patient discharged Performed By: #### L 100.0100, L500.2500 ####[facility] [address] [place], [address] HCT Normal 37-47 [facility] Comment on above: Result Comment: Canc elled via OM: Order cancelled - Patient discharged Performed By: #### L 100.0100, L500.2500 ####[facility] [address] [place], [address] HGB Normal 12.0-15.0 [facility] Comment on above: Result Comment: Canc elled via OM: Order cancelled - Patient discharged Performed By: #### L 100.0100, L500.2500 ####[facility] [address] [place], [address] MCH Normal 27.0-32.0 [facility] Comment on above: Result Comment: Canc elled via OM: Order cancelled - Patient discharged Performed By: #### L 100.0100, L500.2500 ####[facility] [address] [place], [address] MCHC Normal 32-36 [facility] Comment on above: Result Comment: Canc elled via OM: Order cancelled - Patient discharged Performed By: #### L 100.0100, L500.2500 ####[facility] [address] [place], [address] MCV Normal 81-99 [facility] Comment on above: Result Comment: Canc elled via OM: Order cancelled - Patient discharged Performed By: #### L 100.0100, L500.2500 ####[facility] [address] [place], [address] NEUT% Normal 47-70 [facility] Comment on above: Result Comment: Canc elled via OM: Order cancelled - Patient discharged Performed By: #### L 100.0100, L500.2500 ####[facility] [address] [place], [address] PLT Normal 150-450 [facility] Comment on above: Result Comment: Canc elled via OM: Order cancelled - Patient discharged Performed By: #### L 100.0100, L500.2500 ####[facility] [address] [place], [address] RBC Normal 4.2-5.4 [facility] Comment on above: Result Comment: Canc elled via OM: Order cancelled - Patient discharged Performed By: #### L 100.0100, L500.2500 ####[facility] [address] [place], [address] RDW CV Normal 11.6-14.6 [facility] Comment on above: Result Comment: Canc elled via OM: Order cancelled - Patient discharged Performed By: #### L 100.0100, L500.2500 ####[facility] [address] [place], [address] RDW SD Normal 35.1-43.9 [facility] Comment on above: Result Comment: Canc elled via OM: Order cancelled - Patient discharged Performed By: #### L 100.0100, L500.2500 ####[facility] [address] [place], [address] WBC Normal 4.4-11.0 [facility] Comment on above: Result Comment: Canc elled via OM: Order cancelled - Patient discharged Performed By: #### L 100.0100, L500.2500 ####[facility] [address] [place], [address] Absolute lymphocyte countOrd ered By: Nick Romano on 08-15-2024 Lymphocytes Auto (Unsp spec) [#/Vol] 2.39 10*3/uL 0.83-4.51 [facility] Automated lymphocyte count a s percentage of total leukocytesOrdered By: Nick Romano on 08-15-2024 Lymphocytes/100 WBC Auto (Unsp spec) 35.0 % 19-41 [facility] BRCon 08-15-2024 RC Normal [facility] Comment on above: Result Comment: [id number] OP RC TRANSFUSED 08/15/24 1153 Performed By: #### B , [facility] ####[facility] [address] [place], [address] Basic Metabolic Profile (BMP )on 08-15-2024 BUN/CRE 15.2 RATIO Normal 10-20 [facility] Comment on above: Performed By: #### L 501.5200, L100.0100, L500.2500 ####[facility] [address] [place], [address] CA,Total 8.7 mg/dL Normal 8.5-10.1 [facility] Comment on above: Performed By: #### L 501.5200, L100.0100, L500.2500 ####[facility] [address] [place], [address] Chloride [Moles/Vol] 103 mmol/L Normal 98-107 [facility] Comment on above: Performed By: #### L 501.5200, L100.0100, L500.2500 ####[facility] [address] [place], [address] CO2 [Moles/Vol] 30.0 mmol/L Normal 21.0-32.0 [facility] Comment on above: Performed By: #### L 501.5200, L100.0100, L500.2500 ####[facility] [address] [place], [address] Creatinine [Mass/Vol] 0.86 mg/dL Normal 0.55-1.[address] [facility] Comment on above: Result Comment: The validity of the calculated GFR GFRAA in patients over70 years has not been determined. Clinical correlation isessential. Performed By: #### L 501.5200, L100.0100, L500.2500 ####[facility] [address] [place], [address] ECRCL 99.03 ml/min Normal [facility] Comment on above: Performed By: #### L 501.5200, L100.0100, L500.2500 ####[facility] [address] [place], [address] EST GFR - AA 88 mL/min Normal >60 [facility] Comment on above: Result Comment: Afri can [place] GFR Calc Performed By: #### L 501.5200, L100.0100, L500.2500 ####[facility] [address] [place], [address] GAP 4 Low 5-15 [facility] Comment on above: Performed By: #### L 501.5200, L100.0100, L500.2500 ####[facility] [address] [place], [address] GFR/1.73 sq M.predicted among non-blacks MDRD (S/P/Bld) [Vol rate/Area] 72 mL/min/{1.73_m2} Normal >60 [facility] Comment on above: Result Comment: Non- GFR Calc Performed By: #### L 501.5200, L100.0100, L500.2500 ####[facility] [address] [place], [address] Glucose [Mass/Vol] 95 mg/dL Normal 74-106 [facility] Comment on above: Performed By: #### L 501.5200, L100.0100, L500.2500 ####[facility] [address] [place], [address] Potassium [Moles/Vol] 4.4 mmol/L Normal 3.5-5.[address] [facility] Comment on above: Performed By: #### L 501.5200, L100.0100, L500.2500 ####[facility] [address] [place], [address] Sodium [Moles/Vol] 137 mmol/L Normal 136-145 [facility] Comment on above: Performed By: #### L 501.5200, L100.0100, L500.2500 ####[facility] [address] [place], [address] Urea nitrogen [Mass/Vol] 13 mg/dL Normal 7-18 [facility] Comment on above: Performed By: #### L 501.5200, L100.0100, L500.2500 ####[facility] [address] [place], [address] Basophil percentageOrdered B y: Nicksven Romano on 08-15-2024 Basophils/100 WBC (Bld) 0.4 % 0-1 [facility] CBC W/Diff, Automatedon 07-24 Absolute Lymph 2.39 X10 3/uL Normal 0.83-4.51 [facility] Comment on above: Performed By: #### L 501.5200, L100.0100, L500.2500 ####[facility] [address] [place], [address] Absolute Neut 3.7 X10 3/uL Normal 2.0-7.7 [facility] Comment on above: Performed By: #### L 501.5200, L100.0100, L500.2500 ####[facility] [address] [place], [address] Basophils/100 WBC (Bld) 0.4 % Normal 0-1 [facility] Comment on above: Performed By: #### L 501.5200, L100.0100, L500.2500 ####[facility] [address] [place], [address] Eosinophils/100 WBC (Bld) 3.7 % Normal 0-5 [facility] Comment on above: Performed By: #### L 501.5200, L100.0100, L500.2500 ####[facility] [address] [place], [address] Erythrocyte distribution width (RBC) [Ratio] 17.7 % High 11.6-14.6 [facility] Comment on above: Performed By: #### L 501.5200, L100.0100, L500.2500 ####[facility] [address] [place], [address] Hematocrit (Bld) [Volume fraction] 25.1 % Low 37-47 [facility] Comment on above: Performed By: #### L 501.5200, L100.0100, L500.2500 ####[facility] [address] [place], [address] Hemoglobin (Bld) [Mass/Vol] 7.0 g/dL Low 12.0-15.0 [facility] Comment on above: Performed By: #### L 501.5200, L100.0100, L500.2500 ####[facility] [address] [place], [address] IG% 0.100 Normal 0.0-0.9 [facility] Comment on above: Result Comment: IG% - Immature Granulocytes (promyelocytes, myelocytes andmetamyelocytes) > 1% indicates that a LEFT SHIFT is Present. Performed By: #### L 501.5200, L100.0100, L500.2500 ####[facility] [address] [place], [address] Lymphocytes/100 WBC (Bld) 35.0 % Normal 19-41 [facility] Comment on above: Performed By: #### L 501.5200, L100.0100, L500.2500 ####[facility] [address] [place], [address] MCH (RBC) [Entitic mass] 22.5 pg Low 27.0-32.0 [facility] Comment on above: Performed By: #### L 501.5200, L100.0100, L500.2500 ####[facility] [address] [place], [address] MCHC (RBC) [Mass/Vol] 27.9 g/dL Low 32-[address] [facility] Comment on above: Performed By: #### L 501.5200, L100.0100, L500.2500 ####[facility] [address] [place], [address] MCV (RBC) [Entitic vol] 80.7 fL Low 81-99 [facility] Comment on above: Performed By: #### L 501.5200, L100.0100, L500.2500 ####[facility] [address] [place], [address] Monocytes/100 WBC (Bld) 7.3 % Normal 0-10 [facility] Comment on above: Performed By: #### L 501.5200, L100.0100, L500.2500 ####[facility] [address] [place], [address] Neutrophils/100 WBC (Bld) 53.5 % Normal 47-70 [facility] Comment on above: Performed By: #### L 501.5200, L100.0100, L500.2500 ####[facility] [address] [place], [address] Nucleated RBC (Bld) [#/Vol] 0 10*3/uL Normal 0-5 [facility] Comment on above: Performed By: #### L 501.5200, L100.0100, L500.2500 ####[facility] [address] [place], [address] Platelet mean volume (Bld) [Entitic vol] 10.4 fL Normal 6.2-12.0 [facility] Comment on above: Performed By: #### L 501.5200, L100.0100, L500.2500 ####[facility] [address] [place], [address] Platelets (Bld) [#/Vol] 226 10*3/uL Normal 150-450 [facility] Comment on above: Performed By: #### L 501.5200, L100.0100, L500.2500 ####[facility] [address] [place], [address] RBC (Bld) [#/Vol] 3.11 10*6/uL Low 4.2-5.4 [facility] Comment on above: Performed By: #### L 501.5200, L100.0100, L500.2500 ####[facility] [address] [place], [address] RDW SD 52.0 fl High 35.1-43.9 [facility] Comment on above: Performed By: #### L 501.5200, L100.0100, L500.2500 ####[facility] [address] [place], [address] WBC (Bld) [#/Vol] 6.8 10*3/uL Normal 4.4-11.0 [facility] Comment on above: Performed By: #### L 501.5200, L100.0100, L500.2500 ####[facility] [address] [place], [address] Carbon dioxide measurementOr dered By: Nick Romano on 08-15-2024 CO2 [Moles/Vol] 30.0 mmol/L 21.0-32.0 [facility] Chloride measurementOrdered By: Nick Romano on 08-15-2024 Chloride [Moles/Vol] 103 mmol/L 98-107 [facility] Eosinophil percentageOrdered By: Nick Romano on 08-15-2024 Eosinophils/100 WBC (Bld) 3.7 % 0-5 [facility] Erythrocyte distribution wid th ratioOrdered By: Nick Romano on 08-15-2024 Erythrocyte distribution width (RBC) [Ratio] 17.7 % High 11.6-14.6 [facility] Erythrocyte distribution wid th standard deviationOrdered By: Nick Romano on 08-15-2024 Erythrocyte distribution width (RBC) [Ratio] 52.0 fl High 35.1-43.9 [facility] Glomerular filtration rate ( GFR) estimationOrdered By: Nick Romano on 08-15-2024 GFR/1.73 sq M.predicted among non-blacks MDRD (S/P/Bld) [Vol rate/Area] 72 mL/min/{1.73_m2} >60 [facility] Glucose measurementOrdered B y: Nick Romano on 08-15-2024 Glucose [Mass/Vol] 95 mg/dL 74-106 [facility] Hematocrit Auto (Bld) [Volum e fraction]Ordered By: Nick Romano on 08-15-2024 Hematocrit (Bld) [Volume fraction] 25.1 % Low 37-47 [facility] Hemoglobin measurementOrdere d By: Nick Romano on 08-15-2024 Hemoglobin (Bld) [Mass/Vol] 7.0 g/dL Low 12.0-15.0 [facility] Immature granulocytes/100 WB C Auto (Bld)Ordered By: Nick Romano on 08-15-2024 Immature granulocytes/100 WBC (Bld) 0.100 % 0.0-0.9 [facility] MCV (mean corpuscular volume ) determinationOrdered By: Nick Romano on 08-15-2024 MCV (RBC) [Entitic vol] 80.7 fL Low 81-99 [facility] Magnesiumon 08-15-2024 Magnesium [Mass/Vol] 2.2 mg/dL Normal 1.6-2.6 [facility] Comment on above: Performed By: #### L 501.5200, L100.0100, L500.2500 ####[facility] [address] [place], [place], [id number] Magnesium measurementOrdered By: Alexander Ye on 08-15-2024 Magnesium [Mass/Vol] 2.2 mg/dL 1.6-2.6 [facility] Mean corpuscular hemoglobin (MCH) determinationOrdered By: Nick Romano on 08-15-2024 MCH (RBC) [Entitic mass] 22.5 pg Low 27.0-32.0 [facility] Monocyte percentageOrdered B y: Nick Romano on 08-15-2024 Monocytes/100 WBC (Bld) 7.3 % 0-10 [facility] Neutrophil percentageOrdered By: Nick Romano on 08-15-2024 Neutrophils/100 WBC (Bld) 53.5 % 47-70 [facility] Phosphoruson 08-15-2024 Phosphate [Mass/Vol] 4.1 mg/dL Normal 2.5-4.9 [facility] Comment on above: Performed By: #### L 501.8090 ####[facility] [address] [place], [address] Platelet countOrdered By: Marjorie Romano on 08-15-2024 Platelets (Bld) [#/Vol] 226 10*3/uL 150-450 [facility] Potassium measurementOrdered By: Nick Romano on 08-15-2024 Potassium [Moles/Vol] 4.4 mmol/L 3.5-5.[address] [facility] RBC Auto (Bld) [#/Vol]Ordere d By: Nick Romano on 08-15-2024 RBC (Bld) [#/Vol] 3.11 10*6/uL Low 4.2-5.4 [facility] Serum or plasma calcium paddy urement (mass/volume)Ordered By: Nick Romano on 08-15-2024 Calcium [Mass/Vol] 8.7 mg/dL 8.5-10.1 [facility] Serum or plasma creatinine m easurement (mass/volume)Ordered By: Nick Romano on 08-15-2024 Creatinine [Mass/Vol] 0.86 mg/dL 0.55-1.[address] [facility] Serum or plasma urea nitroge n measurement (mass/volume)Ordered By: Nick Romano on 08-15-2024 Urea nitrogen [Mass/Vol] 13 mg/dL 7-18 [facility] Sodium levelOrdered By: Nixon Romano on 08-15-2024 Sodium [Moles/Vol] 137 mmol/L 136-145 [facility] Type AND Screenon 08-15-2024 ABO and Rh group Nom (Bld) Blood group A Rh(D) positive Normal [facility] Comment on above: Order Comment: CMV N EG? NNumber of units to transfuse: 1Is pt's Hgb is = to 7.0 mg/dl or Hct </= 21%? YReason for Ordering Blood: ChronicAre the blood/blood products to be transfused? YIs the patient having/had surgery? Vanesa Oakes Performed By: #### B TS, BRC ####[facility] [address] [place], [address] White blood cell (WBC) count Ordered By: Nick Romano on 08-15-2024 WBC (Bld) [#/Vol] 6.8 10*3/uL 4.4-11.0 [facility] Basic Metabolic Profile (BMP )on 08-14-2024 BUN/CRE 17.0 RATIO Normal 10-20 [facility] Comment on above: Performed By: #### L 100.0100, L500.2500 ####[facility] [address] [place], [address] CA,Total 9.1 mg/dL Normal 8.5-10.1 [facility] Comment on above: Performed By: #### L 100.0100, L500.2500 ####[facility] [address] [place], [address] Chloride [Moles/Vol] 102 mmol/L Normal 98-107 [facility] Comment on above: Performed By: #### L 100.0100, L500.2500 ####[facility] [address] [place], [address] CO2 [Moles/Vol] 29.0 mmol/L Normal 21.0-32.0 [facility] Comment on above: Performed By: #### L 100.0100, L500.2500 ####[facility] [address] [place], [address] Creatinine [Mass/Vol] 0.82 mg/dL Normal 0.55-1.[address] [facility] Comment on above: Result Comment: The validity of the calculated GFR GFRAA in patients over70 years has not been determined. Clinical correlation isessential. Performed By: #### L 100.0100, L500.2500 ####[facility] [address] [place], [address] ECRCL 103.91 ml/min Normal [facility] Comment on above: Performed By: #### L 100.0100, L500.2500 ####[facility] [address] [place], [address] EST GFR - AA 91 mL/min Normal >60 [facility] Comment on above: Result Comment: Afri can [place] GFR Calc Performed By: #### L 100.0100, L500.2500 ####[facility] [address] [place], [address] GAP 5 Normal 5-15 [facility] Comment on above: Performed By: #### L 100.0100, L500.2500 ####[facility] [address] [place], [address] GFR/1.73 sq M.predicted among non-blacks MDRD (S/P/Bld) [Vol rate/Area] 75 mL/min/{1.73_m2} Normal >60 [facility] Comment on above: Result Comment: Non- GFR Calc Performed By: #### L 100.0100, L500.2500 ####[facility] [address] [place], [address] Glucose [Mass/Vol] 85 mg/dL Normal 74-106 [facility] Comment on above: Performed By: #### L 100.0100, L500.2500 ####[facility] [address] [place], [address] Potassium [Moles/Vol] 4.2 mmol/L Normal 3.5-5.[address] [facility] Comment on above: Performed By: #### L 100.0100, L500.2500 ####[facility] [address] [place], [address] Sodium [Moles/Vol] 136 mmol/L Normal 136-145 [facility] Comment on above: Performed By: #### L 100.0100, L500.2500 ####[facility] [address] [place], [address] Urea nitrogen [Mass/Vol] 14 mg/dL Normal 7-18 [facility] Comment on above: Performed By: #### L 100.0100, L500.2500 ####[facility] [address] [place], [address] CBC W/Diff, Automatedon 07-24-2024 Absolute Lymph 2.64 X10 3/uL Normal 0.83-4.51 [facility] Comment on above: Performed By: #### L 100.0100, L500.2500 ####[facility] [address] [place], [address] Absolute Neut 4.8 X10 3/uL Normal 2.0-7.7 [facility] Comment on above: Performed By: #### L 100.0100, L500.2500 ####[facility] [address] [place], [address] Basophils/100 WBC (Bld) 0.6 % Normal 0-1 [facility] Comment on above: Performed By: #### L 100.0100, L500.2500 ####[facility] [address] [place], [address] Eosinophils/100 WBC (Bld) 3.7 % Normal 0-5 [facility] Comment on above: Performed By: #### L 100.0100, L500.2500 ####[facility] [address] [place], [address] Erythrocyte distribution width (RBC) [Ratio] 17.7 % High 11.6-14.6 [facility] Comment on above: Performed By: #### L 100.0100, L500.2500 ####[facility] [address] [place], [address] Hematocrit (Bld) [Volume fraction] 28.1 % Low 37-47 [facility] Comment on above: Performed By: #### L 100.0100, L500.2500 ####[facility] [address] [place], [address] Hemoglobin (Bld) [Mass/Vol] 7.9 g/dL Low 12.0-15.0 [facility] Comment on above: Performed By: #### L 100.0100, L500.2500 ####[facility] [address] [place], [address] IG% 0.100 Normal 0.0-0.9 [facility] Comment on above: Result Comment: IG% - Immature Granulocytes (promyelocytes, myelocytes andmetamyelocytes) > 1% indicates that a LEFT SHIFT is Present. Performed By: #### L 100.0100, L500.2500 ####[facility] [address] [place], [address] Lymphocytes/100 WBC (Bld) 31.5 % Normal 19-41 [facility] Comment on above: Performed By: #### L 100.0100, L500.2500 ####[facility] [address] [place], [address] MCH (RBC) [Entitic mass] 22.9 pg Low 27.0-32.0 [facility] Comment on above: Performed By: #### L 100.0100, L500.2500 ####[facility] [address] [place], [address] MCHC (RBC) [Mass/Vol] 28.1 g/dL Low 32-[address] [facility] Comment on above: Performed By: #### L 100.0100, L500.2500 ####[facility] [address] [place], [address] MCV (RBC) [Entitic vol] 81.4 fL Normal 81-99 [facility] Comment on above: Performed By: #### L 100.0100, L500.2500 ####[facility] [address] [place], [address] Monocytes/100 WBC (Bld) 6.7 % Normal 0-10 [facility] Comment on above: Performed By: #### L 100.0100, L500.2500 ####[facility] [address] [place], [address] Neutrophils/100 WBC (Bld) 57.4 % Normal 47-70 [facility] Comment on above: Performed By: #### L 100.0100, L500.2500 ####[facility] [address] [place], [address] Nucleated RBC (Bld) [#/Vol] 0 10*3/uL Normal 0-5 [facility] Comment on above: Performed By: #### L 100.0100, L500.2500 ####[facility] [address] [place], [address] Platelet mean volume (Bld) [Entitic vol] 10.3 fL Normal 6.2-12.0 [facility] Comment on above: Performed By: #### L 100.0100, L500.2500 ####[facility] [address] [place], [address] Platelets (Bld) [#/Vol] 242 10*3/uL Normal 150-450 [facility] Comment on above: Performed By: #### L 100.0100, L500.2500 ####[facility] [address] [place], [address] RBC (Bld) [#/Vol] 3.45 10*6/uL Low 4.2-5.4 [facility] Comment on above: Performed By: #### L 100.0100, L500.2500 ####[facility] [address] [place], [address] RDW SD 52.4 fl High 35.1-43.9 [facility] Comment on above: Performed By: #### L 100.0100, L500.2500 ####[facility] [address] [place], [address] WBC (Bld) [#/Vol] 8.4 10*3/uL Normal 4.4-11.0 [facility] Comment on above: Performed By: #### L 100.0100, L500.2500 ####[facility] [address] [place], [address] Bilirubin, totalOrdered By: Aleksandra Hurley on 08-13-2024 Bilirubin [Mass/Vol] 0.20 mg/dL Normal 0.20-1.00 [facility] Comment on above: Result Comment: For patients on eltrombopag therapy, use of Dimension [place] TBIL is not recommended. Performed By: #### L 501.9985, L500.4050, L100.0100 ####[facility] [address] [place], [address] CBC W/Diff, Automatedon 07-24 Absolute Lymph 2.74 X10 3/uL Normal 0.83-4.51 [facility] Comment on above: Performed By: #### L 501.9985, L500.4050, L100.0100 ####[facility] [address] [place], [address] Absolute Neut 5.2 X10 3/uL Normal 2.0-7.7 [facility] Comment on above: Performed By: #### L 501.9985, L500.4050, L100.0100 ####[facility] [address] [place], [address] Basophils/100 WBC (Bld) 0.5 % Normal 0-1 [facility] Comment on above: Performed By: #### L 501.9985, L500.4050, L100.0100 ####[facility] [address] [place], [address] Eosinophils/100 WBC (Bld) 2.4 % Normal 0-5 [facility] Comment on above: Performed By: #### L 501.9985, L500.4050, L100.0100 ####[facility] [address] [place], [address] Erythrocyte distribution width (RBC) [Ratio] 17.6 % High 11.6-14.6 [facility] Comment on above: Performed By: #### L 501.9985, L500.4050, L100.0100 ####[facility] [address] [place], [address] Hematocrit (Bld) [Volume fraction] 25.1 % Low 37-47 [facility] Comment on above: Performed By: #### L 501.9985, L500.4050, L100.0100 ####[facility] [address] [place], [address] Hemoglobin (Bld) [Mass/Vol] 7.3 g/dL Low 12.0-15.0 [facility] Comment on above: Performed By: #### L 501.9985, L500.4050, L100.0100 ####[facility] [address] [place], [address] IG% 0.200 Normal 0.0-0.9 [facility] Comment on above: Result Comment: IG% - Immature Granulocytes (promyelocytes, myelocytes andmetamyelocytes) > 1% indicates that a LEFT SHIFT is Present. Performed By: #### L 501.9985, L500.4050, L100.0100 ####[facility] [address] [place], [address] Lymphocytes/100 WBC (Bld) 31.3 % Normal 19-41 [facility] Comment on above: Performed By: #### L 501.9985, L500.4050, L100.0100 ####[facility] [address] [place], [address] MCH (RBC) [Entitic mass] 23.1 pg Low 27.0-32.0 [facility] Comment on above: Performed By: #### L 501.9985, L500.4050, L100.0100 ####[facility] [address] [place], [address] MCHC (RBC) [Mass/Vol] 29.1 g/dL Low 32-[address] [facility] Comment on above: Performed By: #### L 501.9985, L500.4050, L100.0100 ####[facility] [address] [place], [address] MCV (RBC) [Entitic vol] 79.4 fL Low 81-99 [facility] Comment on above: Performed By: #### L 501.9985, L500.4050, L100.0100 ####[facility] [address] [place], [address] Monocytes/100 WBC (Bld) 6.1 % Normal 0-10 [facility] Comment on above: Performed By: #### L 501.9985, L500.4050, L100.0100 ####[facility] [address] [place], [address] Neutrophils/100 WBC (Bld) 59.5 % Normal 47-70 [facility] Comment on above: Performed By: #### L 501.9985, L500.4050, L100.0100 ####[facility] [address] [place], [address] Nucleated RBC (Bld) [#/Vol] 0 10*3/uL Normal 0-5 [facility] Comment on above: Performed By: #### L 501.9985, L500.4050, L100.0100 ####[facility] [address] [place], [address] Platelet mean volume (Bld) [Entitic vol] 10.3 fL Normal 6.2-12.0 [facility] Comment on above: Performed By: #### L 501.9985, L500.4050, L100.0100 ####[facility] [address] [place], [address] Platelets (Bld) [#/Vol] 251 10*3/uL Normal 150-450 [facility] Comment on above: Performed By: #### L 501.9985, L500.4050, L100.0100 ####[facility] [address] [place], [address] RBC (Bld) [#/Vol] 3.16 10*6/uL Low 4.2-5.4 [facility] Comment on above: Performed By: #### L 501.9985, L500.4050, L100.0100 ####[facility] [address] [place], [address] RDW SD 51.4 fl High 35.1-43.9 [facility] Comment on above: Performed By: #### L 501.9985, L500.4050, L100.0100 ####[facility] [address] [place], [address] WBC (Bld) [#/Vol] 8.8 10*3/uL Normal 4.4-11.0 [facility] Comment on above: Performed By: #### L 501.9985, L500.4050, L100.0100 ####[facility] [address] [place], [address] Comprehensive Metabolic Prof ilon 08-13-2024 Albumin/Globulin [Mass ratio] 0.7 {ratio} Low 0.9-2.4 [facility] Comment on above: Performed By: #### L 501.9985, L500.4050, L100.0100 ####[facility] [address] [place], [address] ALK P 102 U/L Normal 45-117 [facility] Comment on above: Performed By: #### L 501.9985, L500.4050, L100.0100 ####[facility] [address] [place], [address] AST [Catalytic activity/Vol] 23 U/L Normal 15-37 [facility] Comment on above: Performed By: #### L 501.9985, L500.4050, L100.0100 ####[facility] [address] [place], [address] BUN/CRE 20.6 RATIO High 10-20 [facility] Comment on above: Performed By: #### L 501.9985, L500.4050, L100.0100 ####[facility] [address] [place], [address] CA,Total 8.4 mg/dL Low 8.5-10.1 [facility] Comment on above: Performed By: #### L 501.9985, L500.4050, L100.0100 ####[facility] [address] [place], [address] Chloride [Moles/Vol] 104 mmol/L Normal 98-107 [facility] Comment on above: Performed By: #### L 501.9985, L500.4050, L100.0100 ####[facility] [address] [place], [address] CO2 [Moles/Vol] 28.0 mmol/L Normal 21.0-32.0 [facility] Comment on above: Performed By: #### L 501.9985, L500.4050, L100.0100 ####[facility] [address] [place], [address] Creatinine [Mass/Vol] 0.87 mg/dL Normal 0.55-1.[address] [facility] Comment on above: Result Comment: The validity of the calculated GFR GFRAA in patients over70 years has not been determined. Clinical correlation isessential. Performed By: #### L 501.9985, L500.4050, L100.0100 ####[facility] [address] [place], [address] ECRCL 98.03 ml/min Normal [facility] Comment on above: Performed By: #### L 501.9985, L500.4050, L100.0100 ####[facility] [address] [place], [address] EST GFR - AA 85 mL/min Normal >60 [facility] Comment on above: Result Comment: Afri can [place] GFR Calc Performed By: #### L 501.9985, L500.4050, L100.0100 ####[facility] [address] [place], [address] GAP 4 Low 5-15 [facility] Comment on above: Performed By: #### L 501.9985, L500.4050, L100.0100 ####[facility] [address] [place], [address] GFR/1.73 sq M.predicted among non-blacks MDRD (S/P/Bld) [Vol rate/Area] 71 mL/min/{1.73_m2} Normal >60 [facility] Comment on above: Result Comment: Non- GFR Calc Performed By: #### L 501.9985, L500.4050, L100.0100 ####[facility] [address] [place], [address] Glucose [Mass/Vol] 99 mg/dL Normal 74-106 [facility] Comment on above: Performed By: #### L 501.9985, L500.4050, L100.0100 ####[facility] [address] [place] [place], [address] Potassium [Moles/Vol] 4.1 mmol/L Normal 3.5-5.[address] [facility] Comment on above: Performed By: #### L 501.9985, L500.4050, L100.0100 ####[facility] [address] [place] [place], [address] Sodium [Moles/Vol] 136 mmol/L Normal 136-145 [facility] Comment on above: Performed By: #### L 501.9985, L500.4050, L100.0100 ####[facility] [address] [place], [address] T PROT 6.9 g/dL Normal 6.4-8.2 [facility] Comment on above: Performed By: #### L 501.9985, L500.4050, L100.0100 ####[facility] [address] [place], [address] Urea nitrogen [Mass/Vol] 18 mg/dL Normal 7-18 [facility] Comment on above: Performed By: #### L 501.9985, L500.4050, L100.0100 ####[facility] [address] [place], [address] HH, Hemoglobin AND Hematocri ton 08-13-2024 Hematocrit (Bld) [Volume fraction] 26.6 % Low 37-47 [facility] Comment on above: Performed By: #### L 100.0600 ####[facility] [address] [place], [address] Hemoglobin (Bld) [Mass/Vol] 7.8 g/dL Low 12.0-15.0 [facility] Comment on above: Performed By: #### L 100.0600 ####[facility] [address] [place], [address] Hemoglobin A1con 08-13-2024 HbA1c (Bld) [Mass fraction] 5.6 % Normal 3.8-5.6 [facility] Comment on above: Result Comment: Norm al < 5.7 % Prediabetic 5.7 - 6.4 % Diabetic >or= 6.5 % Please note range changes. Performed By: #### L 501.9985, L500.4050, L100.0100 ####[facility] [address] [place], [address] Hemoglobin A1c percentageOrd ered By: Aleksandra Hurley on 08-13-2024 HbA1c (Bld) [Mass fraction] 5.6 % 3.8-5.6 [facility] Influenza virus A and B and SARS-CoV-2 (COVID-19) and Respiratory syncytial virus RNAOrdered By: Nick Romano on 08-13-2024 SARS-CoV-2 (COVID-19) RNA GIL+probe Ql (Unsp spec) [facility] L501.4020on 08-13-2024 TROPONIN-I HS 6 pg/mL Normal 3.0-54.0 [facility] Comment on above: Order Comment: NEEDE D TO REORDER TROP #3 BECAUSE #2 AND #3 TROP DRAWN ATSAME TIME, BOTH SPECIMENS TESTING COMPLETE, COULD NOTUNRECEIVE #33 Result Comment: Plea se Note: New Test Units and Gender Specific Reference Ranges. For more information see Policy Stat Procedure [place] High Sensitivity Troponin (TNIH) and attachments. Performed By: #### L 501.4020 ####[facility] [address] [place], [address] TROPONIN-I HS 5 pg/mL Normal 3.0-54.0 [facility] Comment on above: Order Comment: Comme nts: SPECIMEN #2'TROP' Serial specimen #1, #2 or #3: 2 Result Comment: Plea se Note: New Test Units and Gender Specific Reference Ranges. For more information see Policy Stat Procedure [place] High Sensitivity Troponin (TNIH) and attachments. Performed By: #### L 501.4020 ####[facility] [address] [place], [address] TROPONIN-I HS 6 pg/mL Normal 3.0-54.0 [facility] Comment on above: Order Comment: DUPLI DON [...] For more information see Policy Stat Procedure [place] High Sensitivity Troponin (TNIH) and attachments. Performed By: #### L 501.4020 ####[facility] [address] [place], [address] TROPONIN-I HS 4 pg/mL Normal 3.0-54.0 [facility] Comment on above: Order Comment: 'TROP ' Serial specimen #1, #2 or #3: 1Comments: may add to ED labs Result Comment: Plea se Note: New Test Units and Gender Specific Reference Ranges. For more information see Policy Stat Procedure [place] High Sensitivity Troponin (TNIH) and attachments. Performed By: #### L [id number], [id number] ####[facility] [address] [facility] [address] [id number] 08-13-2024 M100.678 Pending SARS-CoV-2 (COVID 19) Negative INFLUENZA A Negative INFLUENZA B Negative RSV PCR Negative Normal [facility] Comment on above: Performed By: #### M 100.678 ####[facility] [address] [place] [id number] Magnesiumon 08-13-2024 Magnesium [Mass/Vol] 2.2 mg/dL Normal 1.6-2.6 [facility] Comment on above: Order Comment: 'TROP ' Serial specimen #1, #2 or #3: 1Comments: may add to ED labs Performed By: #### L [id number], L501.5200 ####[facility] [address] [place], [address] No Panel InformationOrdered By: [facility] [place] Xavi on 08-13-2024 23 U/L 15-37 [facility] Serum globulin measurementOr dered By: Aleksandra Xavi on 08-13-2024 Globulin (S) [Mass/Vol] 4.0 g/dL Normal 2.2-4.2 [facility] Comment on above: Performed By: #### L 501.9985, L500.4050, L100.0100 ####[facility] [address] [place], [address] Serum or plasma alanine moran otransferase (ALT) measurementOrdered By: Aleksandra Hurley on 08-13-2024 ALT [Catalytic activity/Vol] 13 U/L Normal 13-56 [facility] Comment on above: Performed By: #### L 501.9985, L500.4050, L100.0100 ####[facility] [address] [place], [address] Serum or plasma albumin paddy urement (mass/volume)Ordered By: Aleksandra Hurley on 08-13-2024 Albumin [Mass/Vol] 2.9 g/dL Low 3.2-5.0 [facility] Comment on above: Performed By: #### L 501.9985, L500.4050, L100.0100 ####[facility] [address] [place], [address] Serum or plasma alkaline jeffery sphatase measurementOrdered By: Aleksandra Hurley on 08-13-2024 ALP [Catalytic activity/Vol] 102 U/L 45-117 [facility] Total proteinOrdered By: Natalio Hurley on 08-13-2024 Protein [Mass/Vol] 6.9 g/dL 6.4-8.2 [facility] Troponin IOrdered By: Aleksandra Xavi on 08-13-2024 Troponin I 6 pg/mL 3.0-54.0 [facility] 12 Lead EKGon 08-12-2024 12 Lead EKG Normal [facility] Activated partial thrombopla stin time (aPTT) in platelet poor plasma by coagulation aOrdered By: Chad Pederson on 08-12-2024 aPTT Coag (PPP) [Time] 28.9 s 24.1-36.2 [facility] Basic Metabolic Profile (BMP )on 08-12-2024 BUN/CRE 19.8 RATIO Normal 10-20 [facility] Comment on above: Performed By: #### L 500.2500, L500.3400, L300.4310, L100.0100, L300.3900 ####[facility] [address] [place], [address] CA,Total 9.0 mg/dL Normal 8.5-10.1 [facility] Comment on above: Performed By: #### L 500.2500, L500.3400, L300.4310, L100.0100, L300.3900 ####[facility] [address] [place], [address] Chloride [Moles/Vol] 101 mmol/L Normal 98-107 [facility] Comment on above: Performed By: #### L 500.2500, L500.3400, L300.4310, L100.0100, L300.3900 ####[facility] [address] [place], [address] CO2 [Moles/Vol] 29.0 mmol/L Normal 21.0-32.0 [facility] Comment on above: Performed By: #### L 500.2500, L500.3400, L300.4310, L100.0100, L300.3900 ####[facility] [address] [place], [address] Creatinine [Mass/Vol] 1.11 mg/dL High 0.55-1.[address] [facility] Comment on above: Result Comment: The validity of the calculated GFR GFRAA in patients over70 years has not been determined. Clinical correlation isessential. Performed By: #### L 500.2500, L500.3400, L300.4310, L100.0100, L300.3900 ####[facility] [address] [place], [address] ECRCL 78.51 ml/min Normal [facility] Comment on above: Performed By: #### L 500.2500, L500.3400, L300.4310, L100.0100, L300.3900 ####[facility] [address] [place], [address] EST GFR - AA 65 mL/min Normal >60 [facility] Comment on above: Result Comment: Afri can [place] GFR Calc Performed By: #### L 500.2500, L500.3400, L300.4310, L100.0100, L300.3900 ####[facility] [address] [place], [address] GAP 7 Normal 5-15 [facility] Comment on above: Performed By: #### L 500.2500, L500.3400, L300.4310, L100.0100, L300.3900 ####[facility] [address] [place], [address] GFR/1.73 sq M.predicted among non-blacks MDRD (S/P/Bld) [Vol rate/Area] 54 mL/min/{1.73_m2} Low >60 [facility] Comment on above: Result Comment: Non- GFR Calc Performed By: #### L 500.2500, L500.3400, L300.4310, L100.0100, L300.3900 ####[facility] [address] [place], [address] Glucose [Mass/Vol] 151 mg/dL High 74-106 [facility] Comment on above: Result Comment: Fast ing Glucose result greater than or equal to 126 mg/dLsuggests DIABETES MELLITUS per A.D.A. criteria. Performed By: #### L 500.2500, L500.3400, L300.4310, L100.0100, L300.3900 ####[facility] [address] [place], [address] Potassium [Moles/Vol] 4.0 mmol/L Normal 3.5-5.[address] [facility] Comment on above: Performed By: #### L 500.2500, L500.3400, L300.4310, L100.0100, L300.3900 ####[facility] [address] [place], [address] Sodium [Moles/Vol] 137 mmol/L Normal 136-145 [facility] Comment on above: Performed By: #### L 500.2500, L500.3400, L300.4310, L100.0100, L300.3900 ####[facility] [address] [place], [address] Urea nitrogen [Mass/Vol] 22 mg/dL High 7-18 [facility] Comment on above: Performed By: #### L 500.2500, L500.3400, L300.4310, L100.0100, L300.3900 ####[facility] [address] [place], [address] Bilirubin Test strip Ql (U)O rdered By: Chad Pederson on 08-12-2024 Bilirubin Ql (U) Negative Negative [facility] Bilirubin directOrdered By: Chad Pederson on 08-12-2024 Bilirubin.direct [Mass/Vol] 0.08 mg/dL 0.00-0.30 [facility] Brain/Head without Contrasto n 08-12-2024 Brain/Head without Contrast Normal [facility] CBC W/Diff, Automatedon - Absolute Lymph 2.30 X10 3/uL Normal 0.83-4.51 [facility] Comment on above: Performed By: #### L 500.2500, L500.3400, L300.4310, L100.0100, L300.3900 ####[facility] [address] [place], [address] Absolute Neut 5.6 X10 3/uL Normal 2.0-7.7 [facility] Comment on above: Performed By: #### L 500.2500, L500.3400, L300.4310, L100.0100, L300.3900 ####[facility] [address] [place], [address] Basophils/100 WBC (Bld) 0.5 % Normal 0-1 [facility] Comment on above: Performed By: #### L 500.2500, L500.3400, L300.4310, L100.0100, L300.3900 ####[facility] [address] [place], [address] Eosinophils/100 WBC (Bld) 2.9 % Normal 0-5 [facility] Comment on above: Performed By: #### L 500.2500, L500.3400, L300.4310, L100.0100, L300.3900 ####[facility] [address] [place], [address] Erythrocyte distribution width (RBC) [Ratio] 17.3 % High 11.6-14.6 [facility] Comment on above: Performed By: #### L 500.2500, L500.3400, L300.4310, L100.0100, L300.3900 ####[facility] [address] [place], [address] Hematocrit (Bld) [Volume fraction] 27.1 % Low 37-47 [facility] Comment on above: Performed By: #### L 500.2500, L500.3400, L300.4310, L100.0100, L300.3900 ####[facility] [address] [place], [address] Hemoglobin (Bld) [Mass/Vol] 8.0 g/dL Low 12.0-15.0 [facility] Comment on above: Performed By: #### L 500.2500, L500.3400, L300.4310, L100.0100, L300.3900 ####[facility] [address] [place], [address] IG% 0.300 Normal 0.0-0.9 [facility] Comment on above: Result Comment: IG% - Immature Granulocytes (promyelocytes, myelocytes andmetamyelocytes) > 1% indicates that a LEFT SHIFT is Present. Performed By: #### L 500.2500, L500.3400, L300.4310, L100.0100, L300.3900 ####[facility] [address] [place], [address] Lymphocytes/100 WBC (Bld) 26.4 % Normal 19-41 [facility] Comment on above: Performed By: #### L 500.2500, L500.3400, L300.4310, L100.0100, L300.3900 ####[facility] [address] [place], [address] MCH (RBC) [Entitic mass] 23.2 pg Low 27.0-32.0 [facility] Comment on above: Performed By: #### L 500.2500, L500.3400, L300.4310, L100.0100, L300.3900 ####[facility] [address] [place], [address] MCHC (RBC) [Mass/Vol] 29.5 g/dL Low 32-[address] [facility] Comment on above: Performed By: #### L 500.2500, L500.3400, L300.4310, L100.0100, L300.3900 ####[facility] [address] [place], [address] MCV (RBC) [Entitic vol] 78.6 fL Low 81-99 [facility] Comment on above: Performed By: #### L 500.2500, L500.3400, L300.4310, L100.0100, L300.3900 ####[facility] [address] [place], [address] Monocytes/100 WBC (Bld) 5.5 % Normal 0-10 [facility] Comment on above: Performed By: #### L 500.2500, L500.3400, L300.4310, L100.0100, L300.3900 ####[facility] [address] [place], [address] Neutrophils/100 WBC (Bld) 64.4 % Normal 47-70 [facility] Comment on above: Performed By: #### L 500.2500, L500.3400, L300.4310, L100.0100, L300.3900 ####[facility] [address] [place], [address] Nucleated RBC (Bld) [#/Vol] 0 10*3/uL Normal 0-5 [facility] Comment on above: Performed By: #### L 500.2500, L500.3400, L300.4310, L100.0100, L300.3900 ####[facility] [address] [place], [address] Platelet mean volume (Bld) [Entitic vol] 10.5 fL Normal 6.2-12.0 [facility] Comment on above: Performed By: #### L 500.2500, L500.3400, L300.4310, L100.0100, L300.3900 ####[facility] [address] [place], [address] Platelets (Bld) [#/Vol] 258 10*3/uL Normal 150-450 [facility] Comment on above: Performed By: #### L 500.2500, L500.3400, L300.4310, L100.0100, L300.3900 ####[facility] [address] [place], [address] RBC (Bld) [#/Vol] 3.45 10*6/uL Low 4.2-5.4 [facility] Comment on above: Performed By: #### L 500.2500, L500.3400, L300.4310, L100.0100, L300.3900 ####[facility] [address] [place], [address] RDW SD 49.1 fl High 35.1-43.9 [facility] Comment on above: Performed By: #### L 500.2500, L500.3400, L300.4310, L100.0100, L300.3900 ####[facility] [address] [place], [address] WBC (Bld) [#/Vol] 8.7 10*3/uL Normal 4.4-11.0 [facility] Comment on above: Performed By: #### L 500.2500, L500.3400, L300.4310, L100.0100, L300.3900 ####[facility] [address] [place], [address] CT Chest, Abd, Pel w/Contras ton 08-12-2024 CT Chest, Abd, Pel w/Contrast Normal [facility] Emergency Department Summary on 08-12-2024 Emergency Department Summary Normal [facility] H AND P Exam - Hospitaliston 08-12-2024 H&P Exam - Hospitalist Normal [facility] Hand Min 3 Viewson 5 Hand Min 3 Views Normal [facility] Ketones Test strip Ql (U)Ord ered By: Chad Pederson on 08-12-2024 Ketones Ql (U) 5 mg/dl High Negative [facility] Liver Profileon 08-12-2024 Albumin [Mass/Vol] 3.2 g/dL Normal 3.2-5.0 [facility] Comment on above: Performed By: #### L 500.2500, L500.3400, L300.4310, L100.0100, L300.3900 ####[facility] [address] [place], [address] ALK P 121 U/L High 45-117 [facility] Comment on above: Performed By: #### L 500.2500, L500.3400, L300.4310, L100.0100, L300.3900 ####[facility] [address] [place], [address] ALT [Catalytic activity/Vol] 10 U/L Low 13-56 [facility] Comment on above: Performed By: #### L 500.2500, L500.3400, L300.4310, L100.0100, L300.3900 ####[facility] [address] [place], [address] AST [Catalytic activity/Vol] 27 U/L Normal 15-37 [facility] Comment on above: Performed By: #### L 500.2500, L500.3400, L300.4310, L100.0100, L300.3900 ####[facility] [address] [place], [address] Bilirubin [Mass/Vol] 0.20 mg/dL Normal 0.20-1.00 [facility] Comment on above: Result Comment: For patients on eltrombopag therapy, use of Dimension [place] TBIL is not recommended. Performed By: #### L 500.2500, L500.3400, L300.4310, L100.0100, L300.3900 ####[facility] [address] [place], [place], [address] Bilirubin.direct [Mass/Vol] 0.08 mg/dL Normal 0.00-0.30 [facility] Comment on above: Performed By: #### L 500.2500, L500.3400, L300.4310, L100.0100, L300.3900 ####[facility] [address] [place], [address] Globulin (S) [Mass/Vol] 4.6 g/dL High 2.2-4.2 [facility] Comment on above: Performed By: #### L 500.2500, L500.3400, L300.4310, L100.0100, L300.3900 ####[facility] [address] [place], [address] T PROT 7.8 g/dL Normal 6.4-8.2 [facility] Comment on above: Performed By: #### L 500.2500, L500.3400, L300.4310, L100.0100, L300.3900 ####[facility] [address] [place], [address] Mucus LM Ql (Urine sed)Order ed By: Chad Pederson on 08-12-2024 Mucus Ql (Urine sed) 0 SEEN /hpf [facility] Nitrite Test strip Ql (U)Ord ered By: Chad Pederson on 08-12-2024 Nitrite Ql (U) Negative Negative [facility] Partial Thromboplast Timeon 08-12-2024 aPTT Coag (Bld) [Time] 28.9 s Normal 24.1-36.2 [facility] Comment on above: Performed By: #### L 500.2500, L500.3400, L300.4310, L100.0100, L300.3900 ####[facility] [address] [place], [address] Protein Test strip Ql (U)Ord ered By: Chad Pederson on 08-12-2024 Protein Ql (U) 15 mg/dl High Negative [facility] Prothrombin Time w/INRon INR Coag (PPP) [Relative time] 1.1 {INR} Normal [facility] Comment on above: Performed By: #### L 500.2500, L500.3400, L300.4310, L100.0100, L300.3900 ####[facility] [address] [place], [address] PT Coag (PPP) [Time] 14.7 s Normal 11.7-14.9 [facility] Comment on above: Performed By: #### L 500.2500, L500.3400, L300.4310, L100.0100, L300.3900 ####[facility] [address] [place], [address] Prothrombin timeOrdered By: Chda Pederson on 08-12-2024 PT Coag (PPP) [Time] 14.7 s 11.7-14.9 [facility] Spine Cervical without Contr ason 08-12-2024 Spine Cervical without Contras Normal [facility] Squamous epithelial cells de tection in urine sediment by light microscopyOrdered By: Chad Pederson on 08-12-2024 Epithelial cells.squamous LM Ql (Urine sed) 5-10 SEEN /hpf 5-10 [facility] Urinalysis, Completeon 08-12 EPI,SQUAMOUS 5-10 SEEN Normal 5-10 [facility] Comment on above: Order Comment: COLLE CTOR TO SPECIFY Performed By: #### L 400.0001 ####[facility] [address] [place], [address] RBC 0-5 SEEN Normal 0-5 [facility] Comment on above: Order Comment: LU CTOR TO SPECIFY Performed By: #### L 400.0001 ####[facility] [address] [place], [address] BILIRUBIN URINE Negative Normal Negative [facility] Comment on above: Order Comment: LU CTOR TO SPECIFY Performed By: #### L 400.0001 ####[facility] [address] [place], [address] Clarity (U) Clear Normal Clear [facility] Comment on above: Order Comment: LU CTOR TO SPECIFY Performed By: #### L 400.0001 ####[facility] [address] [place], [address] Color (U) Yellow Normal Yellow [facility] Comment on above: Order Comment: LU CTOR TO SPECIFY Performed By: #### L 400.0001 ####[facility] [address] [place], [address] GLUCOSE, UR Normal Normal Normal [facility] Comment on above: Order Comment: LU CTOR TO SPECIFY Performed By: #### L 400.0001 ####[facility] [address] [place], [address] KETONE UR 5 mg/dl Abnormal Negative [facility] Comment on above: Order Comment: LU CTOR TO SPECIFY Performed By: #### L 400.0001 ####[facility] [address] [place], [address] LEUK ESTERASE Negative Normal Negative [facility] Comment on above: Order Comment: LU CTOR TO SPECIFY Performed By: #### L 400.0001 ####[facility] [address] [place], [address] Nitrite Ql (U) Negative Normal Negative [facility] Comment on above: Order Comment: LU CTOR TO SPECIFY Performed By: #### L 400.0001 ####[facility] [address] [place], [address] OCCULT BLOOD-UR 10 /ul Abnormal Negative [facility] Comment on above: Order Comment: LU CTOR TO SPECIFY Performed By: #### L 400.0001 ####[facility] [address] [place], [address] pH UR 6.5 Normal 5.0 - 8.0 [facility] Comment on above: Order Comment: LU CTOR TO SPECIFY Performed By: #### L 400.0001 ####[facility] [address] [place], [address] PROT DIPSTX 15 mg/dl Abnormal Negative [facility] Comment on above: Order Comment: LU CTOR TO SPECIFY Performed By: #### L 400.0001 ####[facility] [address] [place], [address] SP.GR. DIPSTX 1.010 Normal 1.002-1.03 0 [facility] Comment on above: Order Comment: LU CTOR TO SPECIFY Performed By: #### L 400.0001 ####[facility] [address] [place], [address] UROBILI Normal Normal Normal [facility] Comment on above: Order Comment: LU CTOR TO SPECIFY Performed By: #### L 400.0001 ####[facility] [address] [place], [address] BACTERIA 0 SEEN Normal None Seen [facility] Comment on above: Order Comment: LU CTOR TO SPECIFY Performed By: #### L 400.0001 ####[facility] [address] [place], [address] Mucus Ql (Urine sed) 0 SEEN Normal [facility] Comment on above: Order Comment: LU CTOR TO SPECIFY Performed By: #### L 400.0001 ####[facility] [address] [place], [address] WBC 0 SEEN Normal 0-5 [facility] Comment on above: Order Comment: LU CTOR TO SPECIFY Performed By: #### L 400.0001 ####[facility] [address] [place], [place], [address] Urine clarityOrdered By: Rakesh Pederson on 08-12-2024 Clarity (U) Clear Clear [facility] Urine color determinationOrd ered By: Chad Pederson on 08-12-2024 Color (U) Yellow Yellow [facility] Urine glucose detectionOrder ed By: Chad Pederson on 08-12-2024 Glucose Ql (U) Normal mg/dl Normal [facility] Urine leukocyte esterase det ection by dipstickOrdered By: Chad Pederson on 08-12-2024 Leukocyte esterase Test strip Ql (U) Negative Negative [facility] Urine pHOrdered By: Chad connolly on 08-12-2024 pH (U) 6.5 [pH] 5.0 - 8.0 [facility] Urine sediment bacteria coun t by microscopy (number/high power field)Ordered By: Chad Pederson on 08-12-2024 Bacteria LM.HPF (Urine sed) [#/Area] 0 /[HPF] None Seen [facility] Urine specific gravity measu rementOrdered By: Chad Pederson on 08-12-2024 Specific gravity (U) [Rel density] 1.010 1.002-1.03 0 [facility] Urine urobilinogen measureme ntOrdered By: Chad Pederson on 08-12-2024 Urobilinogen Ql (U) Normal mg/dl Normal [facility] White blood cell countOrdere d By: Chad Pederson on 08-12-2024 White blood cell count 0 SEEN /hpf 0-5 [facility] Neurology Visit Reporton Neurology Visit Report Normal [facility] Basic Metabolic Profile (BMP )on 06-25-2024 BUN Normal 7-18 [facility] Comment on above: Result Comment: Canc elled via OM: Order cancelled - Patient discharged Performed By: #### L 500.2500, L100.0100 ####[facility] [address] [place], [place], [id number] BUN/CRE Normal 10-20 [facility] Comment on above: Result Comment: Canc elled via OM: Order cancelled - Patient discharged Performed By: #### L 500.2500, L100.0100 ####[facility] [address] [place], [address] CA,Total Normal 8.5-10.1 [facility] Comment on above: Result Comment: Canc elled via OM: Order cancelled - Patient discharged Performed By: #### L 500.2500, L100.0100 ####[facility] [address] [place], [address] CL Normal 98-107 [facility] Comment on above: Result Comment: Canc elled via OM: Order cancelled - Patient discharged Performed By: #### L 500.2500, L100.0100 ####[facility] [address] [place], [address] CO2 Normal 21.0-32.0 [facility] Comment on above: Result Comment: Canc elled via OM: Order cancelled - Patient discharged Performed By: #### L 500.2500, L100.0100 ####[facility] [address] [place], [address] CREAT,SERUM Normal 0.55-1.02 [facility] Comment on above: Result Comment: Canc elled via OM: Order cancelled - Patient discharged Performed By: #### L 500.2500, L100.0100 ####[facility] [address] [place], [address] EST GFR Normal >60 [facility] Comment on above: Result Comment: Canc elled via OM: Order cancelled - Patient discharged Performed By: #### L 500.2500, L100.0100 ####[facility] [address] [place], [address] EST GFR - AA Normal >60 [facility] Comment on above: Result Comment: Canc elled via OM: Order cancelled - Patient discharged Performed By: #### L 500.2500, L100.0100 ####[facility] [address] [place], [address] GAP Normal 5-15 [facility] Comment on above: Result Comment: Canc elled via OM: Order cancelled - Patient discharged Performed By: #### L 500.2500, L100.0100 ####[facility] [address] [place], [address] GLU Normal 74-106 [facility] Comment on above: Result Comment: Canc elled via OM: Order cancelled - Patient discharged Performed By: #### L 500.2500, L100.0100 ####[facility] [address] [place], [address] Potassium Normal 3.5-5.1 [facility] Comment on above: Result Comment: Canc elled via OM: Order cancelled - Patient discharged Performed By: #### L 500.2500, L100.0100 ####[facility] [address] [place], [address] Basic Metabolic Profile (BMP) Normal 136-145 [facility] Comment on above: Result Comment: Canc elled via OM: Order cancelled - Patient discharged Performed By: #### L 500.2500, L100.0100 ####[facility] [address] [place], [address] CBC W/Diff, Automatedon 12-0 Absolute Neut Normal 2.0-7.7 [facility] Comment on above: Result Comment: Canc elled via OM: Order cancelled - Patient discharged Performed By: #### L 500.2500, L100.0100 ####[facility] [address] [place], [address] HCT Normal 37-47 [facility] Comment on above: Result Comment: Canc elled via OM: Order cancelled - Patient discharged Performed By: #### L 500.2500, L100.0100 ####[facility] [address] [place], [address] HGB Normal 12.0-15.0 [facility] Comment on above: Result Comment: Canc elled via OM: Order cancelled - Patient discharged Performed By: #### L 500.2500, L100.0100 ####[facility] [address] [place], [address] MCH Normal 27.0-32.0 [facility] Comment on above: Result Comment: Canc elled via OM: Order cancelled - Patient discharged Performed By: #### L 500.2500, L100.0100 ####[facility] [address] [place], [address] MCHC Normal 32-36 [facility] Comment on above: Result Comment: Canc elled via OM: Order cancelled - Patient discharged Performed By: #### L 500.2500, L100.0100 ####[facility] [address] [place], [address] MCV Normal 81-99 [facility] Comment on above: Result Comment: Canc elled via OM: Order cancelled - Patient discharged Performed By: #### L 500.2500, L100.0100 ####[facility] [address] [place], [address] NEUT% Normal 47-70 [facility] Comment on above: Result Comment: Canc elled via OM: Order cancelled - Patient discharged Performed By: #### L 500.2500, L100.0100 ####[facility] [address] [place], [address] PLT Normal 150-450 [facility] Comment on above: Result Comment: Canc elled via OM: Order cancelled - Patient discharged Performed By: #### L 500.2500, L100.0100 ####[facility] [address] [place], [address] RBC Normal 4.2-5.4 [facility] Comment on above: Result Comment: Canc elled via OM: Order cancelled - Patient discharged Performed By: #### L 500.2500, L100.0100 ####[facility] [address] [place], [address] RDW CV Normal 11.6-14.6 [facility] Comment on above: Result Comment: Canc elled via OM: Order cancelled - Patient discharged Performed By: #### L 500.2500, L100.0100 ####[facility] [address] [place], [address] RDW SD Normal 35.1-43.9 [facility] Comment on above: Result Comment: Canc elled via OM: Order cancelled - Patient discharged Performed By: #### L 500.2500, L100.0100 ####[facility] [facility] [address] [place], [address] WBC Normal 4.4-11.0 [facility] Comment on above: Result Comment: Canc elled via OM: Order cancelled - Patient discharged Performed By: #### L 500.2500, L100.0100 ####[facility] [address] [place], [address] Basic Metabolic Profile (BMP )on 06-24-2024 BUN Normal 7-18 [facility] Comment on above: Result Comment: Canc elled via OM: Order cancelled - Patient discharged Performed By: #### L 100.0100, L500.2500 ####[facility] [address] [place], [address] BUN/CRE Normal 10-20 [facility] Comment on above: Result Comment: Canc elled via OM: Order cancelled - Patient discharged Performed By: #### L 100.0100, L500.2500 ####[facility] [address] [place], [address] CA,Total Normal 8.5-10.1 [facility] Comment on above: Result Comment: Canc elled via OM: Order cancelled - Patient discharged Performed By: #### L 100.0100, L500.2500 ####[facility] [address] [place], [address] CL Normal 98-107 [facility] Comment on above: Result Comment: Canc elled via OM: Order cancelled - Patient discharged Performed By: #### L 100.0100, L500.2500 ####[facility] [address] [place], [address] CO2 Normal 21.0-32.0 [facility] Comment on above: Result Comment: Canc elled via OM: Order cancelled - Patient discharged Performed By: #### L 100.0100, L500.2500 ####[facility] [address] [place], [address] CREAT,SERUM Normal 0.55-1.02 [facility] Comment on above: Result Comment: Canc elled via OM: Order cancelled - Patient discharged Performed By: #### L 100.0100, L500.2500 ####[facility] [address] [place], [address] EST GFR Normal >60 [facility] Comment on above: Result Comment: Canc elled via OM: Order cancelled - Patient discharged Performed By: #### L 100.0100, L500.2500 ####[facility] [address] [place], [address] EST GFR - AA Normal >60 [facility] Comment on above: Result Comment: Canc elled via OM: Order cancelled - Patient discharged Performed By: #### L 100.0100, L500.2500 ####[facility] [address] [place], [address] GAP Normal 5-15 [facility] Comment on above: Result Comment: Canc elled via OM: Order cancelled - Patient discharged Performed By: #### L 100.0100, L500.2500 ####[facility] [address] [place], [address] GLU Normal 74-106 [facility] Comment on above: Result Comment: Canc elled via OM: Order cancelled - Patient discharged Performed By: #### L 100.0100, L500.2500 ####[facility] [address] [place], [address] Potassium Normal 3.5-5.1 [facility] Comment on above: Result Comment: Canc elled via OM: Order cancelled - Patient discharged Performed By: #### L 100.0100, L500.2500 ####[facility] [address] [place], [address] Basic Metabolic Profile (BMP) Normal 136-145 [facility] Comment on above: Result Comment: Canc elled via OM: Order cancelled - Patient discharged Performed By: #### L 100.0100, L500.2500 ####[facility] [address] [place], [address] CBC W/Diff, Automatedon 12-0 -2023 Absolute Neut Normal 2.0-7.7 [facility] Comment on above: Result Comment: Canc elled via OM: Order cancelled - Patient discharged Performed By: #### L 100.0100, L500.2500 ####[facility] [address] [place], [address] HCT Normal 37-47 [facility] Comment on above: Result Comment: Canc elled via OM: Order cancelled - Patient discharged Performed By: #### L 100.0100, L500.2500 ####[facility] [address] [place], [address] HGB Normal 12.0-15.0 [facility] Comment on above: Result Comment: Canc elled via OM: Order cancelled - Patient discharged Performed By: #### L 100.0100, L500.2500 ####[facility] [address] [place], [address] MCH Normal 27.0-32.0 [facility] Comment on above: Result Comment: Canc elled via OM: Order cancelled - Patient discharged Performed By: #### L 100.0100, L500.2500 ####[facility] [address] [place], [address] MCHC Normal 32-36 [facility] Comment on above: Result Comment: Canc elled via OM: Order cancelled - Patient discharged Performed By: #### L 100.0100, L500.2500 ####[facility] [address] [place], [address] MCV Normal 81-99 [facility] Comment on above: Result Comment: Canc elled via OM: Order cancelled - Patient discharged Performed By: #### L 100.0100, L500.2500 ####[facility] [address] [place], [address] NEUT% Normal 47-70 [facility] Comment on above: Result Comment: Canc elled via OM: Order cancelled - Patient discharged Performed By: #### L 100.0100, L500.2500 ####[facility] [address] [place], [address] PLT Normal 150-450 [facility] Comment on above: Result Comment: Canc elled via OM: Order cancelled - Patient discharged Performed By: #### L 100.0100, L500.2500 ####[facility] [address] [place], [address] RBC Normal 4.2-5.4 [facility] Comment on above: Result Comment: Canc elled via OM: Order cancelled - Patient discharged Performed By: #### L 100.0100, L500.2500 ####[facility] [address] [place], [address] RDW CV Normal 11.6-14.6 [facility] Comment on above: Result Comment: Canc elled via OM: Order cancelled - Patient discharged Performed By: #### L 100.0100, L500.2500 ####[facility] [address] [place], [address] RDW SD Normal 35.1-43.9 [facility] Comment on above: Result Comment: Canc elled via OM: Order cancelled - Patient discharged Performed By: #### L 100.0100, L500.2500 ####[facility] [address] [place], [address] WBC Normal 4.4-11.0 [facility] Comment on above: Result Comment: Canc elled via OM: Order cancelled - Patient discharged Performed By: #### L 100.0100, L500.2500 ####[facility] [address] [place], [address] Basic Metabolic Profile (BMP )on 06-23-2024 BUN/CRE 16.3 RATIO Normal 10-20 [facility] Comment on above: Performed By: #### L 100.0500, L500.2500 ####[facility] [address] [place], [address] CA,Total 9.0 mg/dL Normal 8.5-10.1 [facility] Comment on above: Performed By: #### L 100.0500, L500.2500 ####[facility] [address] [place], [address] Chloride [Moles/Vol] 102 mmol/L Normal 98-107 [facility] Comment on above: Performed By: #### L 100.0500, L500.2500 ####[facility] [address] [place], [address] CO2 [Moles/Vol] 32.0 mmol/L Normal 21.0-32.0 [facility] Comment on above: Performed By: #### L 100.0500, L500.2500 ####[facility] [address] [place], [address] Creatinine [Mass/Vol] 0.92 mg/dL Normal 0.55-1.[address] [facility] Comment on above: Result Comment: The validity of the calculated GFR GFRAA in patients over70 years has not been determined. Clinical correlation isessential. Performed By: #### L 100.0500, L500.2500 ####[facility] [address] [place], [address] ECRCL 91.40 ml/min Normal [facility] Comment on above: Performed By: #### L 100.0500, L500.2500 ####[facility] [address] [place], [address] EST GFR - AA 80 mL/min Normal >60 [facility] Comment on above: Result Comment: Afri can [place] GFR Calc Performed By: #### L 100.0500, L500.2500 ####[facility] [address] [place], [address] GAP 2 Low 5-15 [facility] Comment on above: Performed By: #### L 100.0500, L500.2500 ####[facility] [address] [place], [address] GFR/1.73 sq M.predicted among non-blacks MDRD (S/P/Bld) [Vol rate/Area] 66 mL/min/{1.73_m2} Normal >60 [facility] Comment on above: Result Comment: Non- GFR Calc Performed By: #### L 100.0500, L500.2500 ####[facility] [address] [place], [address] Glucose [Mass/Vol] 103 mg/dL Normal 74-106 [facility] Comment on above: Result Comment: Fast ing Glucose result from 100 to 125 mg/dLsuggests IMPAIRED HOMEOSTASIS per A.D.A. criteria. Performed By: #### L 100.0500, L500.2500 ####[facility] [address] [place], [address] Potassium [Moles/Vol] 4.5 mmol/L Normal 3.5-5.[address] [facility] Comment on above: Performed By: #### L 100.0500, L500.2500 ####[facility] [address] [place], [address] Sodium [Moles/Vol] 137 mmol/L Normal 136-145 [facility] Comment on above: Performed By: #### L 100.0500, L500.2500 ####[facility] [address] [place], [address] Urea nitrogen [Mass/Vol] 15 mg/dL Normal 7-18 [facility] Comment on above: Performed By: #### L 100.0500, L500.2500 ####[facility] [address] [place], [address] CBC-Complete Blood Cnt No Di ffon 06-23-2024 Erythrocyte distribution width (RBC) [Ratio] 17.0 % High 11.6-14.6 [facility] Comment on above: Performed By: #### L 100.0500, L500.2500 ####[facility] [address] [place], [address] Hematocrit (Bld) [Volume fraction] 30.6 % Low 37-47 [facility] Comment on above: Performed By: #### L 100.0500, L500.2500 ####[facility] [address] [place], [address] Hemoglobin (Bld) [Mass/Vol] 8.4 g/dL Low 12.0-15.0 [facility] Comment on above: Performed By: #### L 100.0500, L500.2500 ####[facility] [address] [place], [address] MCH (RBC) [Entitic mass] 21.9 pg Low 27.0-32.0 [facility] Comment on above: Performed By: #### L 100.0500, L500.2500 ####[facility] [address] [place], [address] MCHC (RBC) [Mass/Vol] 27.5 g/dL Low 32-[address] [facility] Comment on above: Performed By: #### L 100.0500, L500.2500 ####[facility] [address] [place], [address] MCV (RBC) [Entitic vol] 79.9 fL Low 81-99 [facility] Comment on above: Performed By: #### L 100.0500, L500.2500 ####[facility] [address] [place], [address] Platelet mean volume (Bld) [Entitic vol] 10.4 fL Normal 6.2-12.0 [facility] Comment on above: Performed By: #### L 100.0500, L500.2500 ####[facility] [address] [place], [address] Platelets (Bld) [#/Vol] 236 10*3/uL Normal 150-450 [facility] Comment on above: Performed By: #### L 100.0500, L500.2500 ####[facility] [address] [place], [address] RBC (Bld) [#/Vol] 3.83 10*6/uL Low 4.2-5.4 [facility] Comment on above: Performed By: #### L 100.0500, L500.2500 ####[facility] [address] [place], [address] RDW SD 48.0 fl High 35.1-43.9 [facility] Comment on above: Performed By: #### L 100.0500, L500.2500 ####[facility] [address] [place], [address] WBC (Bld) [#/Vol] 8.6 10*3/uL Normal 4.4-11.0 [facility] Comment on above: Performed By: #### L 100.0500, L500.2500 ####[facility] [address] [place], [address] Discharge Instructionon Discharge Instruction Normal [facility] Echo, Limited Studyon 2023 Echo, Limited Study Normal [facility] 12 Lead EKGon 06-22-2024 12 Lead EKG Normal [facility] Abdomen/Pelvis without Conto n 06-22-2024 Abdomen/Pelvis without Cont Normal [facility] BRCon 06-22-2024 RC Normal Neg [facility] Comment on above: Result Comment: [id number] AP RC TRANSFUSED 06/22/24 0738 Performed By: #### B , [facility] ####[facility] [address] [place], [address] Basic Metabolic Profile (BMP )on 06-22-2024 BUN/CRE 18.1 RATIO Normal 10-20 [facility] Comment on above: Order Comment: 'TROP ' Serial specimen #1, #2 or #3: 1 Performed By: #### L 300.4310, L500.2500, L100.0100, L501.4020, L300.3900 ####[facility] [address] [place], [address] CA,Total 8.5 mg/dL Normal 8.5-10.1 [facility] Comment on above: Order Comment: 'TROP ' Serial specimen #1, #2 or #3: 1 Performed By: #### L 300.4310, L500.2500, L100.0100, L501.4020, L300.3900 ####[facility] [address] [place], [address] Chloride [Moles/Vol] 100 mmol/L Normal 98-107 [facility] Comment on above: Order Comment: 'TROP ' Serial specimen #1, #2 or #3: 1 Performed By: #### L 300.4310, L500.2500, L100.0100, L501.4020, L300.3900 ####[facility] [address] [place], [address] CO2 [Moles/Vol] 30.0 mmol/L Normal 21.0-32.0 [facility] Comment on above: Order Comment: 'TROP ' Serial specimen #1, #2 or #3: 1 Performed By: #### L 300.4310, L500.2500, L100.0100, L501.4020, L300.3900 ####[facility] [address] [place], [address] Creatinine [Mass/Vol] 0.89 mg/dL Normal 0.55-1.[address] [facility] Comment on above: Order Comment: 'TROP ' Serial specimen #1, #2 or #3: 1 Result Comment: The validity of the calculated GFR GFRAA in patients over70 years has not been determined. Clinical correlation isessential. Performed By: #### L 300.4310, L500.2500, L100.0100, L501.4020, L300.3900 ####[facility] [address] [place], [address] ECRCL 96.46 ml/min Normal [facility] Comment on above: Order Comment: 'TROP ' Serial specimen #1, #2 or #3: 1 Performed By: #### L 300.4310, L500.2500, L100.0100, L501.4020, L300.3900 ####[facility] [address] [place], [address] EST GFR - AA 84 mL/min Normal >60 [facility] Comment on above: Order Comment: 'TROP ' Serial specimen #1, #2 or #3: 1 Result Comment: Afri can [place] GFR Calc Performed By: #### L 300.4310, L500.2500, L100.0100, L501.4020, L300.3900 ####[facility] [address] [place], [address] GAP 6 Normal 5-15 [facility] Comment on above: Order Comment: 'TROP ' Serial specimen #1, #2 or #3: 1 Performed By: #### L 300.4310, L500.2500, L100.0100, L501.4020, L300.3900 ####[facility] [address] [place], [address] GFR/1.73 sq M.predicted among non-blacks MDRD (S/P/Bld) [Vol rate/Area] 69 mL/min/{1.73_m2} Normal >60 [facility] Comment on above: Order Comment: 'TROP ' Serial specimen #1, #2 or #3: 1 Result Comment: Non- GFR Calc Performed By: #### L 300.4310, L500.2500, L100.0100, L501.4020, L300.3900 ####[facility] [address] [place], [address] Glucose [Mass/Vol] 121 mg/dL High 74-106 [facility] Comment on above: Order Comment: 'TROP ' Serial specimen #1, #2 or #3: 1 Result Comment: Fast ing Glucose result from 100 to 125 mg/dLsuggests IMPAIRED HOMEOSTASIS per A.D.A. criteria. Performed By: #### L 300.4310, L500.2500, L100.0100, L501.4020, L300.3900 ####[facility] [address] [place], [address] Potassium [Moles/Vol] 4.0 mmol/L Normal 3.5-5.[address] [facility] Comment on above: Order Comment: 'TROP ' Serial specimen #1, #2 or #3: 1 Performed By: #### L 300.4310, L500.2500, L100.0100, L501.4020, L300.3900 ####[facility] [address] [place], [address] Sodium [Moles/Vol] 135 mmol/L Low 136-145 [facility] Comment on above: Order Comment: 'TROP ' Serial specimen #1, #2 or #3: 1 Performed By: #### L 300.4310, L500.2500, L100.0100, L501.4020, L300.3900 ####[facility] [address] [place], [address] Urea nitrogen [Mass/Vol] 16 mg/dL Normal 7-18 [facility] Comment on above: Order Comment: 'TROP ' Serial specimen #1, #2 or #3: 1 Performed By: #### L 300.4310, L500.2500, L100.0100, L501.4020, L300.3900 ####[facility] [address] [place], [address] Brain without Contraston Brain without Contrast Normal [facility] CBC W/Diff, Automatedon 12-0 Absolute Lymph 1.46 X10 3/uL Normal 0.83-4.51 [facility] Comment on above: Performed By: #### L 300.4310, L500.2500, L100.0100, L501.4020, L300.3900 ####[facility] [address] [place], [address] Absolute Neut 5.0 X10 3/uL Normal 2.0-7.7 [facility] Comment on above: Performed By: #### L 300.4310, L500.2500, L100.0100, L501.4020, L300.3900 ####[facility] [address] [place], [address] Basophils/100 WBC (Bld) 0.6 % Normal 0-1 [facility] Comment on above: Performed By: #### L 300.4310, L500.2500, L100.0100, L501.4020, L300.3900 ####[facility] [address] [place], [address] Eosinophils/100 WBC (Bld) 1.8 % Normal 0-5 [facility] Comment on above: Performed By: #### L 300.4310, L500.2500, L100.0100, L501.4020, L300.3900 ####[facility] [address] [place], [address] Erythrocyte distribution width (RBC) [Ratio] 15.7 % High 11.6-14.6 [facility] Comment on above: Performed By: #### L 300.4310, L500.2500, L100.0100, L501.4020, L300.3900 ####[facility] [address] [place], [address] Hematocrit (Bld) [Volume fraction] 24.6 % Low 37-47 [facility] Comment on above: Performed By: #### L 300.4310, L500.2500, L100.0100, L501.4020, L300.3900 ####[facility] [address] [place], [address] Hemoglobin (Bld) [Mass/Vol] 6.9 g/dL Low 12.0-15.0 [facility] Comment on above: Performed By: #### L 300.4310, L500.2500, L100.0100, L501.4020, L300.3900 ####[facility] [address] [place], [address] IG% 0.300 Normal 0.0-0.9 [facility] Comment on above: Result Comment: IG% - Immature Granulocytes (promyelocytes, myelocytes andmetamyelocytes) > 1% indicates that a LEFT SHIFT is Present. Performed By: #### L 300.4310, L500.2500, L100.0100, L501.4020, L300.3900 ####[facility] [address] [place], [address] Lymphocytes/100 WBC (Bld) 20.2 % Normal 19-41 [facility] Comment on above: Performed By: #### L 300.4310, L500.2500, L100.0100, L501.4020, L300.3900 ####[facility] [address] [place], [address] MCH (RBC) [Entitic mass] 21.1 pg Low 27.0-32.0 [facility] Comment on above: Performed By: #### L 300.4310, L500.2500, L100.0100, L501.4020, L300.3900 ####[facility] [address] [place], [address] MCHC (RBC) [Mass/Vol] 28.0 g/dL Low 32-[address] [facility] Comment on above: Performed By: #### L 300.4310, L500.2500, L100.0100, L501.4020, L300.3900 ####[facility] [address] [place], [address] MCV (RBC) [Entitic vol] 75.2 fL Low 81-99 [facility] Comment on above: Performed By: #### L 300.4310, L500.2500, L100.0100, L501.4020, L300.3900 ####[facility] [address] [place], [address] Monocytes/100 WBC (Bld) 7.5 % Normal 0-10 [facility] Comment on above: Performed By: #### L 300.4310, L500.2500, L100.0100, L501.4020, L300.3900 ####[facility] [address] [place], [address] Neutrophils/100 WBC (Bld) 69.6 % Normal 47-70 [facility] Comment on above: Performed By: #### L 300.4310, L500.2500, L100.0100, L501.4020, L300.3900 ####[facility] [address] [place], [address] Nucleated RBC (Bld) [#/Vol] 0 10*3/uL Normal 0-5 [facility] Comment on above: Performed By: #### L 300.4310, L500.2500, L100.0100, L501.4020, L300.3900 ####[facility] [address] [place], [address] Platelet mean volume (Bld) [Entitic vol] 9.5 fL Normal 6.2-12.0 [facility] Comment on above: Performed By: #### L 300.4310, L500.2500, L100.0100, L501.4020, L300.3900 ####[facility] [address] [place], [address] Platelets (Bld) [#/Vol] 222 10*3/uL Normal 150-450 [facility] Comment on above: Performed By: #### L 300.4310, L500.2500, L100.0100, L501.4020, L300.3900 ####[facility] [address] [place], [address] RBC (Bld) [#/Vol] 3.27 10*6/uL Low 4.2-5.4 [facility] Comment on above: Performed By: #### L 300.4310, L500.2500, L100.0100, L501.4020, L300.3900 ####[facility] [address] [place], [address] RDW SD 42.8 fl Normal 35.1-43.9 [facility] Comment on above: Performed By: #### L 300.4310, L500.2500, L100.0100, L501.4020, L300.3900 ####[facility] [address] [place], [address] WBC (Bld) [#/Vol] 7.2 10*3/uL Normal 4.4-11.0 [facility] Comment on above: Performed By: #### L 300.4310, L500.2500, L100.0100, L501.4020, L300.3900 ####[facility] [address] [place], [address] Chest 1 Viewon 06-22-2024 Chest 1 View Normal [facility] Emergency Department Summary on 06-22-2024 Emergency Department Summary Normal [facility] H AND P Exam - Hospitaliston 06-22-2024 H&P Exam - Hospitalist Normal [facility] Hemoglobin A1con 06-22-2024 HbA1c (Bld) [Mass fraction] 6.0 % High 3.8-5.6 [facility] Comment on above: Result Comment: Norm al < 5.7 % Prediabetic 5.7 - 6.4 % Diabetic >or= 6.5 % Please note range changes. Performed By: #### L 501.9520, L501.9985 ####[facility] [address] [place], [address] L501.4020on 06-22-2024 TROPONIN-I HS 4 pg/mL Normal 3.0-54.0 [facility] Comment on above: Order Comment: 'TROP ' Serial specimen #1, #2 or #3: 1 Result Comment: Plea se Note: New Test Units and Gender Specific Reference Ranges. For more information see Policy Stat Procedure [place] High Sensitivity Troponin (TNIH) and attachments. Performed By: #### L 300.4310, L500.2500, L100.0100, L501.4020, L300.3900 ####[facility] [address] [place], [address] Lipid Profileon 06-22-2024 Cholesterol [Mass/Vol] 176 mg/dL Normal 200 [facility] Comment on above: Order Comment: Comme nts: NPO at [place] prior to lipid panel Result Comment: <200 mg/dL Desirable 200-240 mg/dL Borderline >240 mg/dL High Risk Performed By: #### L 500.4100 ####[facility] [address] [place], [address] Cholesterol in HDL [Mass/Vol] 56 mg/dL Normal [facility] Comment on above: Order Comment: Comme nts: NPO at [place] prior to lipid panel Result Comment: The drugs N-Acetylcysteine and Metamizole may falselydepress this assay. Reference Range HDL <40 mg/dL Low HDL Cholesterol HDL >or= 60 mg/dL High HDL Cholesterol Performed By: #### L 500.4100 ####[facility] [address] [place], [address] Cholesterol in LDL [Mass/Vol] 102 mg/dL Normal 0-130 [facility] Comment on above: Order Comment: Comme nts: NPO at [place] prior to lipid panel Performed By: #### L 500.4100 ####[facility] [address] [place], [address] Cholesterol in VLDL [Mass/Vol] 18 mg/dL Normal 5-40 [facility] Comment on above: Order Comment: Comme nts: NPO at [place] prior to lipid panel Performed By: #### L 500.4100 ####[facility] [address] [place], [address] Triglyceride [Mass/Vol] 91 mg/dL Normal [facility] Comment on above: Order Comment: Comme nts: NPO at [place] prior to lipid panel Result Comment: The drugs N-Acetylcysteine and Metamizole may falselydepress this assay.Serum Triglycerides Reference Interval Normal <150 mg/dL Borderline high 150 - 199 mg/dL High 200 - 499 mg/dL Very High > or = 500 mg/dL Performed By: #### L 500.4100 ####[facility] [address] [place], [address] MR/CON.PCM.NEon 06-22-2024 MR/CON.PCM.NE Normal [facility] Partial Thromboplast Timeon 06-22-2024 aPTT Coag (Bld) [Time] 33.7 s Normal 24.1-36.2 [facility] Comment on above: Performed By: #### L 300.4310, L500.2500, L100.0100, L501.4020, L300.3900 ####[facility] [address] [place], [address] Prothrombin Time w/INRon INR Coag (PPP) [Relative time] 1.2 {INR} Normal [facility] Comment on above: Performed By: #### L 300.4310, L500.2500, L100.0100, L501.4020, L300.3900 ####[facility] [address] [place], [address] PT Coag (PPP) [Time] 14.9 s Normal 11.7-14.9 [facility] Comment on above: Performed By: #### L 300.4310, L500.2500, L100.0100, L501.4020, L300.3900 ####[facility] [address] [place], [address] STROKE Brain/Head without Co nton 06-22-2024 STROKE Brain/Head without Cont Normal [facility] STROKE CTA Head AND Neck W/C onon 06-22-2024 STROKE CTA Head AND Neck W/Con Normal [facility] Thyroid Stim Hormone (TSH)on 06-22-2024 TSH 4.000 uIU/mL High 0.358-3.74 0 [facility] Comment on above: Performed By: #### L 501.9520, L501.9985 ####[facility] [address] [place], [address] Type AND Screenon 06-22-2024 ABO and Rh group Nom (Bld) Blood group A Rh(D) positive Normal [facility] Comment on above: Order Comment: CMV N EG? NNumber of units to transfuse: 1Is pt's Hgb is = to 7.0 mg/dl or Hct </= 21%? YReason for Ordering Blood: ChronicIs there symptomatic anemia? Andrea the blood/blood products to be transfused? YIs the patient having/had surgery? NWhen Violette Performed By: #### B TS, BRC ####[facility] [address] [place], [address] Urinalysis, Completeon 06-22 RBC 10-25 SEEN Normal 0-5 [facility] Comment on above: Order Comment: LU CTOR TO SPECIFY Performed By: #### L 400.0001 ####[facility] [address] [place], [address] BACTERIA 0 SEEN Normal None Seen [facility] Comment on above: Order Comment: LU CTOR TO SPECIFY Performed By: #### L 400.0001 ####[facility] [address] [place], [address] EPI,SQUAMOUS 0 SEEN Normal 5-10 [facility] Comment on above: Order Comment: LU CTOR TO SPECIFY Performed By: #### L 400.0001 ####[facility] [address] [place], [address] Mucus Ql (Urine sed) 0 SEEN Normal [facility] Comment on above: Order Comment: LU CTOR TO SPECIFY Performed By: #### L 400.0001 ####[facility] [address] [place], [address] WBC 0 SEEN Normal 0-5 [facility] Comment on above: Order Comment: COLLE CTOR TO SPECIFY Performed By: #### L 400.0001 ####[facility] [address] [place], [address] Internal Medicine Office Vis iton 06-09-2024 Internal Medicine Office Visit Normal [facility] Abdomen/Pel W ORAL Cont Only on 03-17-2024 Abdomen/Pel W ORAL Cont Only Normal [facility] CNCOon 11-02-2023 CNCO HNO ID: [id number] Author: COORDINATOR, MAMMOGRAPHY, ? Service: ? Author Type: Physician Type: Letter Filed: 11/02/2023 07:27 Note Text: November 02, 2023 PID: [id number] Felisha Perrin [address] [place] [address] Dear Ms. Perrin, We are pleased to [...] report will be kept on file at [facility] as part of your permanent medical record and are available for your continuing care. Thank you for allowing us to help in meeting your health care needs. Sincerely, Dr. Brothers Interpreting Radiologist [facility] (Normal over 40) Normal [facility] BD DXA - AXIAL SKELETONon BD DXA [...] years, Gender: Female SCANNER INFORMATION: DXA Model: [place] [employer]View - [employer] C [address] Date Scanned: 11/01/2023 1:23 PM CLINICAL HISTORY: [...] had a previous bone density in the [facility] or the previous bone density was performed on a different DXA machine (new, updated model or different location) within the [facility]. VERTEBRAL FRACTURE ASSESSMENT Not performed. IMPRESSION: THE [...] FOR MORE INFORMATION ABOUT DIAGNOSIS AND TREATMENT: [facility]oporosis [facility] Metabolic Bone Disease:? www.ccf.org/arthritis/osteo National Osteoporosis Foundation:? www.nof.org International Society of Clinical Densitometry www.iscd.org Paper Machine Supervisor: OLVIN Transcribe Date/Time: Nov 05 2023 1:40P Dictated by : OMEGA WILKINSON MD This examination was interpreted and the report reviewed and electronically signed by: OMEGA WILKINSON MD on Nov 05 2023 1:41PM EST [id number] 0.8 Normal [facility] SCREENINGon 11-01-2023 [facility] SCREENING * * *Final Report* * * DATE OF EXAM: Nov 01 2023 2:06PM [id number] [id number] - [facility] SCREENING / PROCEDURE REASON: Z12.39 * * * * Physician Interpretation * * * * RESULT: #[id number] - [facility] SCREENING BILATERAL DIGITAL SCREENING MAMMOGRAM WITH CAD: 11/01/2023 HISTORY: /SEE TECH NOTE /Z12.39 / Screening Mammogram-Patient reports NO symptoms. /priors available for comparison. RESULT: TECHNIQUE: The study was acquired using full field digital technology and interpreted from soft copy. Current study was also evaluated with a Computer Aided Detection (CAD). Comparison is made to exams dated: 02/20/2022 mammogram - [facility], 02/24/2021 ultrasound biopsy, 02/24/2021 mammogram - [facility], 01/04/2021 mammogram, 01/04/2021 ultrasound, and 11/23/2020 mammogram - [facility]. The breasts are almost entirely fatty. No significant masses, calcifications, or other findings are seen in either breast. There has been no significant interval change. IMPRESSION: NEGATIVE There is no mammographic evidence of malignancy. A 1 year screening mammogram is recommended. Jami Brothers M.D., cp/jessica:11/02/2023 07:27:43 copy to: Lynda GUARDADO, ph: [phone] Workers Compensation Administrator(s): RT Debbie(R)(M), [facility] letter sent: Normal over 40 Mammogram BI-RADS: [...] Health, Family Medicine, and Medical/Surgical Oncology, the [facility] has carefully reviewed the data and [...] their providers when to stop screening mammograms. Paper Machine Supervisor: Jessica Transcribe Date/Time: Nov 01 2023 1:23P Dictated by: JAMI BROTHERS MD This examination was interpreted and the report reviewed and electronically signed by: JAMI BROTHERS MD on Nov 02 2023 7:27AM EST [id number] Normal [facility] Absolute lymphocyte countOrd ered By: Callum Knutson on 07-02-2023 Lymphocytes Auto (Unsp spec) [#/Vol] 2.40 10*3/uL 0.83-4.51 [facility] Basophil percentageOrdered B y: Callum Knutson on 07-02-2023 Basophil percentage 0-5 SEEN /hpf 0-5 [facility] Basophils/100 WBC (Bld) 0.4 % 0-1 [facility] Chloride [Moles/Vol] 101 mmol/L 98-107 [facility] Eosinophils/100 WBC (Bld) 3.1 % 0-5 [facility] Glucose [Mass/Vol] 100 mg/dL 74-106 [facility] Comment on above: Fasting Glucose resu lt from 100 to 125 mg/dL suggests IMPAIRED HOMEOSTASIS per A.D.A. criteria. Neutrophils (Bld) [#/Vol] 6.1 10*3/uL 2.0-7.7 [facility] Neutrophils/100 WBC (Bld) 63.5 % 47-70 [facility] Potassium [Moles/Vol] 4.1 mmol/L 3.5-5.[address] [facility] Comment on above: Slight Hemolysis, Re sult may be falsely increased. Sodium [Moles/Vol] 135 mmol/L 136-145 [facility] WBC (Bld) [#/Vol] 9.6 10*3/uL 4.4-11.0 [facility] Bilirubin Test strip Ql (U)O rdered By: Callum Knutson on 07-02-2023 Bilirubin Ql (U) Negative Negative [facility] Blood erythrocytes count (nu mber/volume)Ordered By: Callum Knutson on 07-02-2023 RBC (Bld) [#/Vol] 3.57 10*6/uL 4.2-5.4 [facility] Blood hemoglobin measurement (mass/volume)Ordered By: Callum Knutson on 07-02-2023 Hemoglobin (Bld) [Mass/Vol] 7.8 g/dL 12.0-15.0 [facility] Blood lymphocytes/100 leukoc ytesOrdered By: Callum Knutson on 07-02-2023 Lymphocytes/100 WBC (Bld) 24.9 % 19-41 [facility] Blood monocytes/100 leukocyt esOrdered By: Callum Knutson on 07-02-2023 Monocytes/100 WBC (Bld) 7.9 % 0-10 [facility] Blood platelet mean volumeOr dered By: Callum Knutson on 07-02-2023 Platelet mean volume (Bld) [Entitic vol] 10.3 fL 6.2-12.0 [facility] Determination of erythrocyte mean corpuscular volume (MCV)Ordered By: Callum Knutson on 07-02-2023 MCV (RBC) [Entitic vol] 75.6 fL 81-99 [facility] Hematocrit Auto (Bld) [Volum e fraction]Ordered By: Callum Knutson on 07-02-2023 Hematocrit (Bld) [Volume fraction] 27.0 % 37-47 [facility] Ketones Test strip Ql (U)Ord ered By: Callum Knutson on 07-02-2023 Ketones Ql (U) Negative Negative [facility] Laboratory - Chemistry and C hemistry - challengeOrdered By: Callum Knutson on 07-02-2023 CO2 [Moles/Vol] 34.0 mmol/L 21.0-32.0 [facility] Urea nitrogen/Creatinine [Mass ratio] 14.7 mg/mg 10-20 [facility] Laboratory - Hematology and Cell countsOrdered By: Callum Knutson on 07-02-2023 Erythrocyte distribution width (RBC) [Entitic vol] 43.0 fL 35.1-43.9 [facility] Erythrocyte distribution width (RBC) [Ratio] 15.8 % 11.6-14.6 [facility] Immature granulocytes/100 WBC (Bld) 0.200 % 0.0-0.9 [facility] Comment on above: IG% - Immature Granu locytes (promyelocytes, myelocytes and metamyelocytes) > 1% indicates that a LEFT SHIFT is Present. MCH (RBC) [Entitic mass] 21.8 pg 27.0-32.0 [facility] Nucleated RBC/100 WBC (Bld) [Ratio] 0 % 0-5 [facility] MCHC Auto (RBC) [Mass/Vol]Or dered By: Callum Knutson on 07-02-2023 MCHC (RBC) [Mass/Vol] 28.9 g/dL 32-[address] [facility] Mucus LM Ql (Urine sed)Order ed By: Callum Knutson on 07-02-2023 Mucus Ql (Urine sed) 0 SEEN /hpf [facility] Nitrite Test strip Ql (U)Ord ered By: Callum Knutson on 07-02-2023 Nitrite Ql (U) Negative Negative [facility] No Panel InformationOrdered By: Callum Knutson on 07-02-2023 Estimated Creatinine Clearance Calc 53.31 ml/min [facility] Estimated GFR (MDRD) Amer 66 mL/min >60 [facility] Comment on above: GFR Calc Estimated GFR (MDRD) Non-Af Amer 55 mL/min >60 [facility] Comment on above: Non- GFR Calc Platelets bldOrdered By: Ramandeep Knutson on 07-02-2023 Platelets (Bld) [#/Vol] 266 10*3/uL 150-450 [facility] Protein Test strip Ql (U)Ord ered By: Callum Knutson on 07-02-2023 Protein Ql (U) Negative Negative [facility] Serum or plasma calcium paddy urement (mass/volume)Ordered By: Callum Knutson on 07-02-2023 Calcium [Mass/Vol] 8.9 mg/dL 8.5-10.1 [facility] Serum or plasma creatinine m easurement (mass/volume)Ordered By: Callum Knutson on 07-02-2023 Creatinine [Mass/Vol] 1.09 mg/dL 0.55-1.[address] [facility] Comment on above: The validity of the calculated GFR & GFRAA in patients over 70 years has not been determined. Clinical correlation is essential. Serum or plasma urea nitroge n measurement (mass/volume)Ordered By: Callum Knutson on 07-02-2023 Urea nitrogen [Mass/Vol] 16 mg/dL 7-18 [facility] Squamous epithelial cells de tection in urine sediment by light microscopyOrdered By: Callum Knutson on 07-02-2023 Epithelial cells.squamous LM Ql (Urine sed) 0 SEEN /hpf 5-10 [facility] Thin prep Papanicolaou smear with manual screeningOrdered By: Callum Knutson on 07-02-2023 Thin prep Papanicolaou smear with manual screening 0 5-15 [facility] Urine blood detectionOrdered By: Callum Knutson on 07-02-2023 RBC Ql (U) 10 /ul Negative [facility] RBC Ql (U) 0 SEEN /hpf 0-5 [facility] Urine clarityOrdered By: Ramandeep Knutson on 07-02-2023 Clarity (U) Clear Clear [facility] Urine color determinationOrd ered By: Callum Knutson on 07-02-2023 Color (U) Yellow Yellow [facility] Urine glucose detectionOrder ed By: Callum Knutson on 07-02-2023 Glucose Ql (U) Normal mg/dl Normal [facility] Urine leukocyte esterase det ection by dipstickOrdered By: Callum Knutson on 07-02-2023 Leukocyte esterase Test strip Ql (U) 25 /ul Negative [facility] Urine pHOrdered By: Callum ellison on 07-02-2023 pH (U) 6.0 [pH] 5.0 - 8.0 [facility] Urine sediment bacteria coun t by microscopy (number/high power field)Ordered By: Callum Knutson on 07-02-2023 Bacteria LM.HPF (Urine sed) [#/Area] 0 /[HPF] None Seen [facility] Urine specific gravity measu rementOrdered By: Callum Knutson on 07-02-2023 Specific gravity (U) [Rel density] 1.010 1.002-1.03 0 [facility] Urobilinogen Auto test strip Ql (U)Ordered By: Callum Knutson on 07-02-2023 Urobilinogen Ql (U) Normal mg/dl Normal [facility] Basophil percentageon 2022 Chloride [Moles/Vol] 100 mmol/L 98-107 [facility] Glucose [Mass/Vol] 144 mg/dL 74-106 [facility] Comment on above: Fasting Glucose resu lt greater than or equal to 126 mg/dL suggests DIABETES MELLITUS per A.D.A. criteria. Potassium [Moles/Vol] 4.6 mmol/L 3.5-5.[address] [facility] Sodium [Moles/Vol] 137 mmol/L 136-145 [facility] - Chemistry and C hemistry - challengeon 02-05-2023 CO2 [Moles/Vol] 34.0 mmol/L 21.0-32.0 [facility] Urea nitrogen/Creatinine [Mass ratio] 17.9 mg/mg 10- [facility] No Panel Informationon 02-05 Estimated GFR (MDRD) Amer 69 mL/min >60 [facility] Comment on above: GFR Calc Estimated GFR (MDRD) Non-Af Amer 57 mL/min >60 [facility] Comment on above: Non- GFR Calc Serum or plasma calcium paddy urement (mass/volume)on 02-05-2023 Calcium [Mass/Vol] 8.5 mg/dL 8.5-10.1 [facility] Serum or plasma creatinine m easurement (mass/volume)on 02-05-2023 Creatinine [Mass/Vol] 1.06 mg/dL 0.55-1.[address] [facility] Comment on above: The validity of the calculated GFR & GFRAA in patients over 70 years has not been determined. Clinical correlation is essential. Serum or plasma urea nitroge n measurement (mass/volume)on 02-05-2023 Urea nitrogen [Mass/Vol] 19 mg/dL - [facility] Thin prep Papanicolaou smear with manual screeningon 07-17-2023 Thin prep Papanicolaou smear with manual screening 3 - [facility] Progress Noteson 08-09-2022 Clinical Laboratory Service Teacher Authentication Interface Message Text This visit has [...] unable to reach pt. Call forwarded to Mobile Experienceaging [employer] has only phone number, no other identifier, unable to leave HIPAA-complaint message If patient calls back please ask if any concerns and if need refills. If so, please ask which medications and which pharmacy to send to. Will have front desk attendant attempt to reschedule patient Tom Montelongo M.D. Top Precipitator Operator PGY-3 This encounter was opened in error. Patient was a No-Show. Please disregard. Normal [facility] Telephone Encounteron 2021 Clinical Laboratory Service Teacher Authentication Interface Message Text Last visit with Psychiatry (Tom Montelongo) was 05/10/2022 Next visit with Psychiatry (Tom Montelongo) is 08/09/2022 Normal [facility] Addendum Noteon 06-26-2022 Clinical Laboratory Service Teacher Authentication Interface Message Text Addended by: MINNIE EDWARDS on: 06/26/2022 12:07 PM Modules accepted: Level of Service Normal [facility] Basophil percentageon 2021 Chloride [Moles/Vol] 111 mmol/L 98-107 [facility] Work Phone: Glucose [Mass/Vol] 93 mg/dL 74-106 [facility] Work Phone: Potassium [Moles/Vol] 4.9 mmol/L 3.5-5.1 [facility] Work Phone: [phone] Sodium [Moles/Vol] 139 mmol/L 136-145 [facility] Work Phone: [phone] Lactate [Moles/Vol] 0.6 mmol/L 0.4-2.0 [facility] Work Phone: [phone] Laboratory - Chemistry and C hemistry - challengeon 06-06-2022 CO2 [Moles/Vol] 24.0 mmol/L 21.0-32.0 [facility] Work Phone: [phone] Urea nitrogen/Creatinine [Mass ratio] 24.6 mg/mg 10-20 [facility] Work Phone: No Panel Informationon 06-06 Estimated Creatinine Clearance Calc 49.84 ml/min [facility] Work Phone: Estimated GFR (MDRD) Amer 61 mL/min >60 [facility] Work Phone: Comment on above: GFR Calc Estimated GFR (MDRD) Non-Af Amer 50 mL/min >60 [facility] Work Phone: Comment on above: Non- GFR Calc Serum or plasma calcium paddy urement (mass/volume)on 06-06-2022 Calcium [Mass/Vol] 8.4 mg/dL 8.5-10.1 [facility] Work Phone: [phone] Serum or plasma creatinine m easurement (mass/volume)on 06-06-2022 Creatinine [Mass/Vol] 1.18 mg/dL 0.55-1.[address] [facility] Work Phone: Comment on above: The validity of the calculated GFR & GFRAA in patients over 70 years has not been determined. Clinical correlation is essential. Serum or plasma urea nitroge n measurement (mass/volume)on 06-06-2022 Urea nitrogen [Mass/Vol] 29 mg/dL 7-18 [facility] Work Phone: Thin prep Papanicolaou smear with manual screeningon 06-06-2022 Thin prep Papanicolaou smear with manual screening 4 5-15 [facility] Work Phone: Absolute lymphocyte counton 06-05-2022 Lymphocytes Auto (Unsp spec) [#/Vol] 2.21 10*3/uL 0.83-4.51 [facility] Work Phone: Basophil percentageon 2021 Basophil percentage 5-10 SEEN /hpf 0-5 [facility] Work Phone: Chloride [Moles/Vol] 105 mmol/L 98-107 [facility] Work Phone: Glucose [Mass/Vol] 117 mg/dL 74-106 [facility] Work Phone: Comment on above: Fasting Glucose resu lt from 100 to 125 mg/dL suggests IMPAIRED HOMEOSTASIS per A.D.A. criteria. Potassium [Moles/Vol] 5.6 mmol/L 3.5-5.[address] [facility] Work Phone: Sodium [Moles/Vol] 136 mmol/L 136-145 [facility] Work Phone: Basophils/100 WBC (Bld) 0.9 % 0-1 [facility] Work Phone: Bilirubin [Mass/Vol] 0.40 mg/dL 0.20-1.00 [facility] Work Phone: Comment on above: For patients on eltr ombopag therapy, use of Dimension [place] TBIL is not recommended. Chloride [Moles/Vol] 104 mmol/L 98-107 [facility] Work Phone: Eosinophils/100 WBC (Bld) 3.0 % 0-5 [facility] Work Phone: Glucose [Mass/Vol] 112 mg/dL 74-106 [facility] Work Phone: Comment on above: Fasting Glucose resu lt from 100 to 125 mg/dL suggests IMPAIRED HOMEOSTASIS per A.D.A. criteria. Neutrophils (Bld) [#/Vol] 4.7 10*3/uL 2.0-7.7 [facility] Work Phone: Neutrophils/100 WBC (Bld) 60.8 % 47-70 [facility] Work Phone: Potassium [Moles/Vol] 6.2 mmol/L 3.5-5.[address] [facility] Work Phone: Comment on above: Critical Result(s) C alled at: 18:43:20 06/05/2022 by: Valorie Lo to Ford Olvera NP. Results read back by same. Protein [Mass/Vol] 8.4 g/dL 6.4-8.2 [facility] Work Phone: Sodium [Moles/Vol] 136 mmol/L 136-145 [facility] Work Phone: WBC (Bld) [#/Vol] 7.7 10*3/uL 4.4-11.0 [facility] Work Phone: Bilirubin Test strip Ql (U)o n 06-05-2022 Bilirubin Ql (U) Negative Negative [facility] Work Phone: Blood erythrocytes count (nu mber/volume)on 06-05-2022 RBC (Bld) [#/Vol] 3.86 10*6/uL 4.2-5.4 [facility] Work Phone: [phone] Blood hemoglobin measurement (mass/volume)on 06-05-2022 Hemoglobin (Bld) [Mass/Vol] 9.5 g/dL 12.0-15.0 [facility] Work Phone: Blood lymphocytes/100 leukoc yteson 06-05-2022 Lymphocytes/100 WBC (Bld) 28.9 % 19-41 [facility] Work Phone: Blood monocytes/100 leukocyt eson 06-05-2022 Monocytes/100 WBC (Bld) 6.1 % 0-10 [facility] Work Phone: Blood platelet mean volumeon 06-05-2022 Platelet mean volume (Bld) [Entitic vol] 11.1 fL 6.2-12.0 [facility] Work Phone: [phone] Determination of erythrocyte mean corpuscular volume (MCV)on 06-05-2022 MCV (RBC) [Entitic vol] 81.3 fL 81-99 [facility] Work Phone: [phone] Hematocrit Auto (Bld) [Volum e fraction]on 06-05-2022 Hematocrit (Bld) [Volume fraction] 31.4 % 37-47 [facility] Work Phone: Iron measurement (mass/mass) on 06-05-2022 Iron (Unsp spec) [Mass/Mass] 39 ug/dL 50-170 [facility] Work Phone: [phone] Ketones Test strip Ql (U)on 06-05-2022 Ketones Ql (U) 5 mg/dl Negative [facility] Work Phone: [phone] Laboratory - Chemistry and C hemistry - challengeon 06-05-2022 CO2 [Moles/Vol] 26.0 mmol/L 21.0-32.0 [facility] Work Phone: Magnesium [Mass/Vol] 2.4 mg/dL 1.6-2.6 [facility] Work Phone: [phone] Urea nitrogen/Creatinine [Mass ratio] 21.9 mg/mg 10-20 [facility] Work Phone: [phone] ALP [Catalytic activity/Vol] 220 U/L 45-117 [facility] Work Phone: ALT [Catalytic activity/Vol] 18 U/L 13-56 [facility] Work Phone: CO2 [Moles/Vol] 25.0 mmol/L 21.0-32.0 [facility] Work Phone: Globulin (S) [Mass/Vol] 4.6 g/dL 2.2-4.2 [facility] Work Phone: Urea nitrogen/Creatinine [Mass ratio] 21.1 mg/mg 10-20 [facility] Work Phone: [phone] Laboratory - Hematology and Cell countson 06-05-2022 Erythrocyte distribution width (RBC) [Entitic vol] 50.4 fL 35.1-43.9 [facility] Work Phone: [phone] Erythrocyte distribution width (RBC) [Ratio] 17.2 % 11.6-14.6 [facility] Work Phone: [phone] Immature granulocytes/100 WBC (Bld) 0.300 % 0.0-0.9 [facility] Work Phone: [phone] Comment on above: IG% - Immature Granu locytes (promyelocytes, myelocytes and metamyelocytes) > 1% indicates that a LEFT SHIFT is Present. MCH (RBC) [Entitic mass] 24.6 pg 27.0-32.0 [facility] Work Phone: [phone] Nucleated RBC/100 WBC (Bld) [Ratio] 0 % 0-5 [facility] Work Phone: [phone] MCHC Auto (RBC) [Mass/Vol]on 06-05-2022 MCHC (RBC) [Mass/Vol] 30.3 g/dL 32-[address] [facility] Work Phone: [phone] Mucus LM Ql (Urine sed)on Mucus Ql (Urine sed) 0 SEEN /hpf [facility] Work Phone: [phone] Nitrite Test strip Ql (U)on 06-05-2022 Nitrite Ql (U) Negative Negative [facility] Work Phone: [phone] Panel Informationon 06-05 Estimated Creatinine Clearance Calc 33.04 ml/min [facility] Work Phone: [phone] Estimated GFR (MDRD) Amer 38 mL/min >60 [facility] Work Phone: [phone] Comment on above: GFR Calc Estimated GFR (MDRD) Non-Af Amer 31 mL/min >60 [facility] Work Phone: [phone] Comment on above: Non- GFR Calc Estimated GFR (MDRD) Amer 45 mL/min >60 [facility] Work Phone: Comment on above: GFR Calc Estimated GFR (MDRD) Non-Af Amer 38 mL/min >60 [facility] Work Phone: [phone] Comment on above: Non- GFR Calc Total Iron Binding Capacity 418 ug/dL 250-450 [facility] Work Phone: [phone] Platelets bldon 06-05-2022 Platelets (Bld) [#/Vol] 331 10*3/uL 150-450 [facility] Work Phone: [phone] Protein Test strip Ql (U)on 06-05-2022 Protein Ql (U) 30 mg/dl Negative [facility] Work Phone: [phone] Serum or plasma albumin paddy urement (mass/volume)on 06-05-2022 Albumin [Mass/Vol] 3.8 g/dL 3.2-5.0 [facility] Work Phone: [phone] Serum or plasma albumin/glob ulin mass ratioon 06-05-2022 Albumin/Globulin [Mass ratio] 0.8 {ratio} 0.9-2.4 [facility] Work Phone: [phone] Serum or plasma calcium paddy urement (mass/volume)on 06-05-2022 Calcium [Mass/Vol] 8.6 mg/dL 8.5-10.1 [facility] Work Phone: [phone] Calcium [Mass/Vol] 9.7 mg/dL 8.5-10.1 [facility] Work Phone: [phone] Serum or plasma creatinine m easurement (mass/volume)on 06-05-2022 Creatinine [Mass/Vol] 1.78 mg/dL 0.55-1.[address] [facility] Work Phone: [phone] Comment on above: The validity of the calculated GFR & GFRAA in patients over 70 years has not been determined. Clinical correlation is essential. Creatinine [Mass/Vol] 1.52 mg/dL 0.55-1.[address] [facility] Work Phone: Comment on above: The validity of the calculated GFR & GFRAA in patients over 70 years has not been determined. Clinical correlation is essential. Serum or plasma iron saturat ion measurement (mass fraction)on 06-05-2022 Iron saturation [Mass fraction] 9.3 % 15.0-55.0 [facility] Work Phone: Serum or plasma urea nitroge n measurement (mass/volume)on 06-05-2022 Urea nitrogen [Mass/Vol] 39 mg/dL -18 [facility] Work Phone: [phone] Urea nitrogen [Mass/Vol] 32 mg/dL 02-06 [facility] Work Phone: [phone] Squamous epithelial cells de tection in urine sediment by light microscopyon 06-05-2022 Epithelial cells.squamous LM Ql (Urine sed) 0-5 SEEN /hpf 5-10 [facility] Work Phone: Thin prep Papanicolaou smear with manual screeningon 06-05-2022 Thin prep Papanicolaou smear with manual screening 5 5-15 [facility] Work Phone: Thin prep Papanicolaou smear with manual screening 54 U/L 15-37 [facility] Work Phone: Thin prep Papanicolaou smear with manual screening 7 5-15 [facility] Work Phone: Urine blood detectionon 05-23 RBC Ql (U) 25 /ul Negative [facility] Work Phone: RBC Ql (U) 0-5 SEEN /hpf 0-5 [facility] Work Phone: Urine clarityon 06-05-2022 Clarity (U) Sl. Cloudy Clear [facility] Work Phone: Urine color determinationon 06-05-2022 Color (U) Yellow Yellow [facility] Work Phone: Urine glucose detectionon Glucose Ql (U) Normal mg/dl Normal [facility] Work Phone: [phone] Urine leukocyte esterase det ection by dipstickon 06-05-2022 Leukocyte esterase Test strip Ql (U) 500 /ul Negative [facility] Work Phone: Urine pHon 06-05-2022 pH (U) 5.0 [pH] 5.0 - 8.0 [facility] Work Phone: Urine sediment bacteria coun t by microscopy (number/high power field)on 06-05-2022 Bacteria LM.HPF (Urine sed) [#/Area] 2 /[HPF] None Seen [facility] Work Phone: Urine sediment renal epithel ial cell count by microscopy (number/high power field)on 06-05-2022 Epithelial cells.renal LM.HPF (Urine sed) [#/Area] 0 /[HPF] 0-5 [facility] Work Phone: Urine specific gravity measu rementon 06-05-2022 Specific gravity (U) [Rel density] 1.020 1.002-1.03 0 [facility] Work Phone: Urobilinogen Auto test strip Ql (U)on 06-05-2022 Urobilinogen Ql (U) 1 mg/dl Normal [facility] Work Phone: Progress Noteson 05-10-2022 Clinical Laboratory Service Teacher Authentication Interface Message Text Documentation: Mode: Telephone Patient Patient Work Phone: Patient Cell Preferred phone: [phone] Consent: I confirmed patient understanding of the [...] see MR Phone numbers Preferred phone #: [phone] Verified number (above) and current location (in [...] one day at a time. Has a route service representative coming in 1 day/week. Talks to and [...] dialogue with therapist: Yes Suicide Screener: C-SSRS [place]-Suicide Severity Rating Scale Able to complete [place]-Suicide Severity Rating Scale with Patient?: Yes 1) [...] med (more content not included)... Normal [facility] Bilirubin Test strip Ql (U)o n 05-01-2022 Bilirubin Ql (U) Negative Negative [facility] Work Phone: Ketones Test strip Ql (U)on 05-01-2022 Ketones Ql (U) 5 mg/dl Negative [facility] Work Phone: Nitrite Test strip Ql (U)on 05-01-2022 Nitrite Ql (U) Negative Negative [facility] Work Phone: Protein Test strip Ql (U)on 05-01-2022 Protein Ql (U) 15 mg/dl Negative [facility] Work Phone: Urine blood detectionon 04-22 RBC Ql (U) 10 /ul Negative [facility] Work Phone: Urine clarityon 05-01-2022 Clarity (U) Sl. Cloudy Clear [facility] Work Phone: Urine color determinationon 05-01-2022 Color (U) Yellow Yellow [facility] Work Phone: Urine glucose detectionon Glucose Ql (U) Normal mg/dl Normal [facility] Work Phone: Urine leukocyte esterase det ection by dipstickon 05-01-2022 Leukocyte esterase Test strip Ql (U) 500 /ul Negative [facility] Work Phone: Urine pHon 05-01-2022 pH (U) 5.0 [pH] 5.0 - 8.0 [facility] Work Phone: Urine specific gravity measu rementon 05-01-2022 Specific gravity (U) [Rel density] 1.015 1.002-1.03 0 [facility] Work Phone: Urobilinogen Auto test strip Ql (U)on 05-01-2022 Urobilinogen Ql (U) Normal mg/dl Normal [facility] Work Phone: Telephone Encounteron 2021 Clinical Laboratory Service Teacher Authentication Interface Message Text Last visit with Judy Gomez DO (Resident) Psychiatry 11/02/21 Normal [facility] Absolute lymphocyte counton 04-01-2022 Lymphocytes Auto (Unsp spec) [#/Vol] 2.14 10*3/uL 0.83-4.51 [facility] Work Phone: Basophil percentageon 2021 Basophils/100 WBC (Bld) 0.5 % 0-1 [facility] Work Phone: Chloride [Moles/Vol] 106 mmol/L 98-107 [facility] Work Phone: Eosinophils/100 WBC (Bld) 1.3 % 0-5 [facility] Work Phone: Glucose [Mass/Vol] 108 mg/dL 74-106 [facility] Work Phone: Comment on above: Fasting Glucose resu lt from 100 to 125 mg/dL suggests IMPAIRED HOMEOSTASIS per A.D.A. criteria. Neutrophils (Bld) [#/Vol] 5.7 10*3/uL 2.0-7.7 [facility] Work Phone: Neutrophils/100 WBC (Bld) 66.3 % 47-70 [facility] Work Phone: Potassium [Moles/Vol] 3.9 mmol/L 3.5-5.[address] [facility] Work Phone: Sodium [Moles/Vol] 138 mmol/L 136-145 [facility] Work Phone: WBC (Bld) [#/Vol] 8.5 10*3/uL 4.4-11.0 [facility] Work Phone: Blood erythrocytes count (nu mber/volume)on 04-01-2022 RBC (Bld) [#/Vol] 3.17 10*6/uL 4.2-5.4 [facility] Work Phone: Blood hemoglobin measurement (mass/volume)on 04-01-2022 Hemoglobin (Bld) [Mass/Vol] 8.3 g/dL 12.0-15.0 [facility] Work Phone: Blood lymphocytes/100 leukoc yteson 04-01-2022 Lymphocytes/100 WBC (Bld) 25.1 % 19-41 [facility] Work Phone: Blood monocytes/100 leukocyt eson 04-01-2022 Monocytes/100 WBC (Bld) 6.6 % 0-10 [facility] Work Phone: Blood platelet mean volumeon 04-01-2022 Platelet mean volume (Bld) [Entitic vol] 10.9 fL 6.2-12.0 [facility] Work Phone: [phone] Determination of erythrocyte mean corpuscular volume (MCV)on 04-01-2022 MCV (RBC) [Entitic vol] 84.5 fL 81-99 [facility] Work Phone: [phone] Hematocrit Auto (Bld) [Volum e fraction]on 04-01-2022 Hematocrit (Bld) [Volume fraction] 26.8 % 37-47 [facility] Work Phone: [phone] Laboratory - Chemistry and C hemistry - challengeon 04-01-2022 CO2 [Moles/Vol] 23.0 mmol/L 21.0-32.0 [facility] Work Phone: [phone] Magnesium [Mass/Vol] 2.1 mg/dL 1.6-2.6 [facility] Work Phone: [phone] Urea nitrogen/Creatinine [Mass ratio] 18.4 mg/mg 10-20 [facility] Work Phone: [phone] Laboratory - Hematology and Cell countson 04-01-2022 Erythrocyte distribution width (RBC) [Entitic vol] 49.7 fL 35.1-43.9 [facility] Work Phone: [phone] Erythrocyte distribution width (RBC) [Ratio] 15.9 % 11.6-14.6 [facility] Work Phone: [phone] Immature granulocytes/100 WBC (Bld) 0.200 % 0.0-0.9 [facility] Work Phone: [phone] Comment on above: IG% - Immature Granu locytes (promyelocytes, myelocytes and metamyelocytes) > 1% indicates that a LEFT SHIFT is Present. MCH (RBC) [Entitic mass] 26.2 pg 27.0-32.0 [facility] Work Phone: [phone] Nucleated RBC/100 WBC (Bld) [Ratio] 0 % 0-5 [facility] Work Phone: [phone] MCHC Auto (RBC) [Mass/Vol]on 04-01-2022 MCHC (RBC) [Mass/Vol] 31.0 g/dL 32-[address] [facility] Work Phone: No Panel Informationon 04-01 Troponin I High Sensitivity 7 pg/mL 3.0-54.0 [facility] Work Phone: Comment on above: Please Note: New Daniella t Units and Gender Specific Reference Ranges. For more information see Policy Stat Procedure [place] High Sensitivity Troponin (TNIH) and attachments. Estimated Creatinine Clearance Calc 57.09 ml/min [facility] Work Phone: Estimated GFR (MDRD) Amer 71 mL/min >60 [facility] Work Phone: Comment on above: GFR Calc Estimated GFR (MDRD) Non-Af Amer 59 mL/min >60 [facility] Work Phone: Comment on above: Non- GFR Calc Platelets bldon 04-01-2022 Platelets (Bld) [#/Vol] 373 10*3/uL 150-450 [facility] Work Phone: Serum or plasma calcium paddy urement (mass/volume)on 04-01-2022 Calcium [Mass/Vol] 9.2 mg/dL 8.5-10.1 [facility] Work Phone: Serum or plasma creatinine m easurement (mass/volume)on 04-01-2022 Creatinine [Mass/Vol] 1.03 mg/dL 0.55-1.[address] [facility] Work Phone: Comment on above: The validity of the calculated GFR & GFRAA in patients over 70 years has not been determined. Clinical correlation is essential. Serum or plasma urea nitroge n measurement (mass/volume)on 04-01-2022 Urea nitrogen [Mass/Vol] 19 mg/dL 7-18 [facility] Work Phone: Thin prep Papanicolaou smear with manual screeningon 04-01-2022 Thin prep Papanicolaou smear with manual screening 9 5-15 [facility] Work Phone: Telephone Encounteron 2021 Clinical Laboratory Service Teacher Authentication Interface Message Text Remeron last ordered on 12/27/21 for a 90 day supply with no refills. Pended 90 day supply. Normal [facility] Telephone Encounteron 2021 Clinical Laboratory Service Teacher Authentication Interface Message Text Last visit with Psychiatry Tom Montelongo was 02/08/2022 Next visit with Psychiatry (Tom Montelongo) is 05/10/2022 [facility] Absolute lymphocyte counton 03-06-2022 Lymphocytes Auto (Unsp spec) [#/Vol] 2.28 10*3/uL 0.83-4.51 [facility] Work Phone: Basophil percentageon 2021 Basophil percentage 5-10 SEEN /hpf 0-5 [facility] Work Phone: Basophils/100 WBC (Bld) 0.5 % 0-1 [facility] Work Phone: Chloride [Moles/Vol] 105 mmol/L 98-107 [facility] Work Phone: Eosinophils/100 WBC (Bld) 2.0 % 0-5 [facility] Work Phone: Glucose [Mass/Vol] 98 mg/dL 74-106 [facility] Work Phone: Neutrophils (Bld) [#/Vol] 5.6 10*3/uL 2.0-7.7 [facility] Work Phone: Neutrophils/100 WBC (Bld) 64.6 % 47-70 [facility] Work Phone: Potassium [Moles/Vol] 4.5 mmol/L 3.5-5.[address] [facility] Work Phone: Sodium [Moles/Vol] 138 mmol/L 136-145 [facility] Work Phone: WBC (Bld) [#/Vol] 8.6 10*3/uL 4.4-11.0 [facility] Work Phone: Bilirubin Test strip Ql (U)o n 03-06-2022 Bilirubin Ql (U) Negative Negative [facility] Work Phone: Blood erythrocytes count (nu mber/volume)on 03-06-2022 RBC (Bld) [#/Vol] 2.82 10*6/uL 4.2-5.4 [facility] Work Phone: Blood hemoglobin measurement (mass/volume)on 03-06-2022 Hemoglobin (Bld) [Mass/Vol] 7.9 g/dL 12.0-15.0 [facility] Work Phone: [phone] Blood lymphocytes/100 leukoc yteson 03-06-2022 Lymphocytes/100 WBC (Bld) 26.6 % 19-41 [facility] Work Phone: [phone] Blood monocytes/100 leukocyt eson 03-06-2022 Monocytes/100 WBC (Bld) 6.1 % 0-10 [facility] Work Phone: Blood platelet mean volumeon 03-06-2022 Platelet mean volume (Bld) [Entitic vol] 10.3 fL 6.2-12.0 [facility] Work Phone: Determination of erythrocyte mean corpuscular volume (MCV)on 03-06-2022 MCV (RBC) [Entitic vol] 92.6 fL 81-99 [facility] Work Phone: Hematocrit Auto (Bld) [Volum e fraction]on 03-06-2022 Hematocrit (Bld) [Volume fraction] 26.1 % 37-47 [facility] Work Phone: Hyaline casts LM.LPF (Urine sed) [#/Area]on 03-06-2022 Hyaline casts (Urine sed) [#/Area] 0 /[LPF] 0-5 [facility] Work Phone: Ketones Test strip Ql (U)on 03-06-2022 Ketones Ql (U) 5 mg/dl Negative [facility] Work Phone: [phone] Laboratory - Chemistry and C hemistry - challengeon 03-06-2022 CO2 [Moles/Vol] 26.0 mmol/L 21.0-32.0 [facility] Work Phone: Urea nitrogen/Creatinine [Mass ratio] 20.5 mg/mg 10-20 [facility] Work Phone: Laboratory - Hematology and Cell countson 03-06-2022 Erythrocyte distribution width (RBC) [Entitic vol] 50.5 fL 35.1-43.9 [facility] Work Phone: [phone] Erythrocyte distribution width (RBC) [Ratio] 14.9 % 11.6-14.6 [facility] Work Phone: [phone] Immature granulocytes/100 WBC (Bld) 0.200 % 0.0-0.9 [facility] Work Phone: [phone] Comment on above: IG% - Immature Granu locytes (promyelocytes, myelocytes and metamyelocytes) > 1% indicates that a LEFT SHIFT is Present. MCH (RBC) [Entitic mass] 28.0 pg 27.0-32.0 [facility] Work Phone: [phone] Nucleated RBC/100 WBC (Bld) [Ratio] 0.2 % 0-5 [facility] Work Phone: [phone] MCHC Auto (RBC) [Mass/Vol]on 03-06-2022 MCHC (RBC) [Mass/Vol] 30.3 g/dL 32-[address] [facility] Work Phone: Mucus LM Ql (Urine sed)on Mucus Ql (Urine sed) 1+ /hpf [facility] Work Phone: [phone] Nitrite Test strip Ql (U)on 03-06-2022 Nitrite Ql (U) Negative Negative [facility] Work Phone: [phone] Panel Informationon 03-06 Estimated Creatinine Clearance Calc 66.82 ml/min [facility] Work Phone: [phone] Estimated GFR (MDRD) Amer 86 mL/min >60 [facility] Work Phone: [phone] Comment on above: GFR Calc Estimated GFR (MDRD) Non-Af Amer 71 mL/min >60 [facility] Work Phone: [phone] Comment on above: Non- GFR Calc Platelets bldon 03-06-2022 Platelets (Bld) [#/Vol] 346 10*3/uL 150-450 [facility] Work Phone: Protein Test strip Ql (U)on 03-06-2022 Protein Ql (U) 15 mg/dl Negative [facility] Work Phone: [phone] Serum or plasma calcium paddy urement (mass/volume)on 03-06-2022 Calcium [Mass/Vol] 9.5 mg/dL 8.5-10.1 [facility] Work Phone: Serum or plasma creatinine m easurement (mass/volume)on 03-06-2022 Creatinine [Mass/Vol] 0.88 mg/dL 0.55-1.[address] [facility] Work Phone: Comment on above: The validity of the calculated GFR & GFRAA in patients over 70 years has not been determined. Clinical correlation is essential. Serum or plasma urea nitroge n measurement (mass/volume)on 03-06-2022 Urea nitrogen [Mass/Vol] 18 mg/dL 7-18 [facility] Work Phone: Squamous epithelial cells de tection in urine sediment by light microscopyon 03-06-2022 Epithelial cells.squamous LM Ql (Urine sed) 0-5 SEEN /hpf 5-10 [facility] Work Phone: Thin prep Papanicolaou smear with manual screeningon 03-06-2022 Thin prep Papanicolaou smear with manual screening 7 12-04 [facility] Work Phone: Urine blood detectionon 02-20 RBC Ql (U) Negative Negative [facility] Work Phone: [phone] RBC Ql (U) 0 SEEN /hpf 0-5 [facility] Work Phone: [phone] Urine clarityon 03-06-2022 Clarity (U) Clear Clear [facility] Work Phone: [phone] Urine color determinationon 03-06-2022 Color (U) Yellow Yellow [facility] Work Phone: [phone] Urine glucose detectionon Glucose Ql (U) Normal mg/dl Normal [facility] Work Phone: Urine leukocyte esterase det ection by dipstickon 03-06-2022 Leukocyte esterase Test strip Ql (U) 100 /ul Negative [facility] Work Phone: Urine pHon 03-06-2022 pH (U) 6.0 [pH] 5.0 - 8.0 [facility] Work Phone: Urine sediment bacteria coun t by microscopy (number/high power field)on 03-06-2022 Bacteria LM.HPF (Urine sed) [#/Area] 1 /[HPF] None Seen [facility] Work Phone: Urine specific gravity measu rementon 03-06-2022 Specific gravity (U) [Rel density] 1.020 1.002-1.03 0 [facility] Work Phone: Urobilinogen Auto test strip Ql (U)on 03-06-2022 Urobilinogen Ql (U) Normal mg/dl Normal [facility] Work Phone: US DVT LOWER LTon 02-21-2022 [...] imaged segments of the left lower extremity. Paper Machine Supervisor: OLVIN Transcribe Date/Time: Feb 21 2022 3:54P Dictated by : VERA ELIZABETH MD This examination was interpreted and the report reviewed and electronically signed by: VERA ELIZABETH MD on Feb 21 2022 3:56PM EST [id number] Normal [facility] PÉREZ SCREENINGon 02-20-2022 [facility] Addendum Noteon 02-13-2022 Clinical Laboratory Service Teacher Authentication Interface Message Text Addended by: MINNIE EDWARDS on: 02/13/2022 04:20 PM Modules accepted: Level of Service Normal [employer] [facility] [facility] Progress Noteson 02-08-2022 Clinical Laboratory Service Teacher Authentication Interface Message Text Documentation: Mode: Telephone Patient Patient Work Phone: Patient Cell Preferred phone: [phone] Consent: I confirmed patient understanding of the risks and benefits of telehealth visits and obtained consent to proceed with the telehealth visit. Location of Patient: Home of patient Telephone Encounter This visit was initiated by the patient / provider and the patient and provider interacted in real time. Location of the patient: Home of patient Location of the provider: [facility] Reviewed informed consent with patient: yes - see MR Patient/parent indicated understanding of informed consent: yes see MR Phone numbers Preferred phone #: [phone] Verified number (above) and current location (in [...] dialogue with therapist: Yes Suicide Screener: C-SSRS [place]-Suicide Severity Rating Scale Able to complete [place]-Suicide Severity Rating Scale with Patient?: Yes 1) [...] y (more content not included)... Normal [facility] Absolute lymphocyte counton 01-19-2022 Lymphocytes Auto (Unsp spec) [#/Vol] 2.22 10*3/uL 0.83-4.51 [facility] Work Phone: Basophil percentageon 2021 Basophils/100 WBC (Bld) 0.5 % 0-1 [facility] Work Phone: Chloride [Moles/Vol] 106 mmol[facility]L 98-107 [facility]: Eosinophils/100 WBC (Bld) 1.4 % 0-5 [facility] Work Phone: Glucose [Mass/Vol] 97 mg/dL 74-106 [facility] Work Phone: Neutrophils (Bld) [#/Vol] 2.8 10*3/uL 2.0-7.7 [facility] Work Phone: Neutrophils/100 WBC (Bld) 49.8 % 47-70 [facility] Work Phone: Potassium [Moles/Vol] 4.1 mmol/L 3.5-5.[address] [facility] Work Phone: Sodium [Moles/Vol] 140 mmol/L 136-145 [facility] Work Phone: WBC (Bld) [#/Vol] 5.6 10*3/uL 4.4-11.0 [facility] Work Phone: Blood erythrocytes count (nu mber/volume)on 01-19-2022 RBC (Bld) [#/Vol] 2.56 10*6/uL 4.2-5.4 [facility] Work Phone: Blood hemoglobin measurement (mass/volume)on 01-19-2022 Hemoglobin (Bld) [Mass/Vol] 7.2 g/dL 12.0-15.0 [facility] Work Phone: Blood lymphocytes/100 leukoc yteson 01-19-2022 Lymphocytes/100 WBC (Bld) 39.8 % 19-41 [facility] Work Phone: Blood monocytes/100 leukocyt eson 01-19-2022 Monocytes/100 WBC (Bld) 8.1 % 0-10 [facility] Work Phone: Blood platelet mean volumeon 01-19-2022 Platelet mean volume (Bld) [Entitic vol] 10.2 fL 6.2-12.0 [facility] Work Phone: [phone] Determination of erythrocyte mean corpuscular volume (MCV)on 01-19-2022 MCV (RBC) [Entitic vol] 92.6 fL 81-99 [facility] Work Phone: [phone] Hematocrit Auto (Bld) [Volum e fraction]on 01-19-2022 Hematocrit (Bld) [Volume fraction] 23.7 % 37-47 [facility] Work Phone: [phone] Laboratory - Chemistry and C hemistry - challengeon 01-19-2022 CO2 [Moles/Vol] 29.0 mmol/L 21.0-32.0 [facility] Work Phone: [phone] Urea nitrogen/Creatinine [Mass ratio] 21.1 mg/mg 10-20 [facility] Work Phone: [phone] Laboratory - Hematology and Cell countson 01-19-2022 Erythrocyte distribution width (RBC) [Entitic vol] 50.0 fL 35.1-43.9 [facility] Work Phone: [phone] Erythrocyte distribution width (RBC) [Ratio] 14.7 % 11.6-14.6 [facility] Work Phone: [phone] Immature granulocytes/100 WBC (Bld) 0.400 % 0.0-0.9 [facility] Work Phone: [phone] Comment on above: IG% - Immature Granu locytes (promyelocytes, myelocytes and metamyelocytes) > 1% indicates that a LEFT SHIFT is Present. MCH (RBC) [Entitic mass] 28.1 pg 27.0-32.0 [facility] Work Phone: [phone] Nucleated RBC/100 WBC (Bld) [Ratio] 0 % 0-5 [facility] Work Phone: [phone] MCHC Auto (RBC) [Mass/Vol]on 01-19-2022 MCHC (RBC) [Mass/Vol] 30.4 g/dL 32-[address] [facility] Work Phone: [phone] Panel Informationon 01-19 Estimated Creatinine Clearance Calc 79.61 ml/min [facility] Work Phone: Estimated GFR (MDRD) Amer 109 mL/min >60 [facility] Work Phone: [phone] Comment on above: GFR Calc Estimated GFR (MDRD) Non-Af Amer 90 mL/min >60 [facility] Work Phone: Comment on above: Non- GFR Calc Platelets bldon 01-19-2022 Platelets (Bld) [#/Vol] 190 10*3/uL 150-450 [facility] Work Phone: [phone] Serum or plasma calcium paddy urement (mass/volume)on 01-19-2022 Calcium [Mass/Vol] 8.6 mg/dL 8.5-10.1 [facility] Work Phone: [phone] Serum or plasma creatinine m easurement (mass/volume)on 01-19-2022 Creatinine [Mass/Vol] 0.71 mg/dL 0.55-1.[address] [facility] Work Phone: [phone] Comment on above: The validity of the calculated GFR & GFRAA in patients over 70 years has not been determined. Clinical correlation is essential. Serum or plasma urea nitroge n measurement (mass/volume)on 01-19-2022 Urea nitrogen [Mass/Vol] 15 mg/dL 7-18 [facility] Work Phone: [phone] Thin prep Papanicolaou smear with manual screeningon 01-19-2022 Thin prep Papanicolaou smear with manual screening 5 5-15 [facility] Work Phone: [phone] Absolute lymphocyte counton 01-18-2022 Lymphocytes Auto (Unsp spec) [#/Vol] 2.28 10*3/uL 0.83-4.51 [facility] Work Phone: [phone] Basophil percentageon 2021 Bilirubin [Mass/Vol] 0.10 mg/dL 0.20-1.00 [facility] Work Phone: [phone] Comment on above: For patients on eltr ombopag therapy, use of Dimension [place] TBIL is not recommended. Protein [Mass/Vol] 6.9 g/dL 6.4-8.2 [facility] Work Phone: Basophils/100 WBC (Bld) 0.4 % 0-1 [facility] Work Phone: Bilirubin [Mass/Vol] 0.20 mg/dL 0.20-1.00 [facility] Work Phone: Comment on above: For patients on eltr ombopag therapy, use of Dimension [place] TBIL is not recommended. Chloride [Moles/Vol] 107 mmol/L 98-107 [facility] Work Phone: Eosinophils/100 WBC (Bld) 1.8 % 0-5 [facility] Work Phone: Glucose [Mass/Vol] 101 mg/dL 74-106 [facility] Work Phone: Comment on above: Fasting Glucose resu lt from 100 to 125 mg/dL suggests IMPAIRED HOMEOSTASIS per A.D.A. criteria. Neutrophils (Bld) [#/Vol] 4.1 10*3/uL 2.0-7.7 [facility] Work Phone: Neutrophils/100 WBC (Bld) 57.9 % 47-70 [facility] Work Phone: Potassium [Moles/Vol] 4.5 mmol/L 3.5-5.[address] [facility] Work Phone: Protein [Mass/Vol] 7.4 g/dL 6.4-8.2 [facility] Work Phone: Sodium [Moles/Vol] 140 mmol/L 136-145 [facility] Work Phone: WBC (Bld) [#/Vol] 7.1 10*3/uL 4.4-11.0 [facility] Work Phone: Blood erythrocytes count (nu mber/volume)on 01-18-2022 RBC (Bld) [#/Vol] 2.61 10*6/uL 4.2-5.4 [facility] Work Phone: Blood hemoglobin measurement (mass/volume)on 01-18-2022 Hemoglobin (Bld) [Mass/Vol] 7.2 g/dL 12.0-15.0 [facility] Work Phone: Blood lymphocytes/100 leukoc yteson 01-18-2022 Lymphocytes/100 WBC (Bld) 32.0 % 19-41 [facility] Work Phone: [phone] Blood monocytes/100 leukocyt eson 01-18-2022 Monocytes/100 WBC (Bld) 7.6 % 0-10 [facility] Work Phone: Blood platelet mean volumeon 01-18-2022 Platelet mean volume (Bld) [Entitic vol] 11.0 fL 6.2-12.0 [facility] Work Phone: [phone] Determination of erythrocyte mean corpuscular volume (MCV)on 01-18-2022 MCV (RBC) [Entitic vol] 93.9 fL 81-99 [facility] Work Phone: [phone] Hematocrit Auto (Bld) [Volum e fraction]on 01-18-2022 Hematocrit (Bld) [Volume fraction] 24.5 % 37-47 [facility] Work Phone: INR in Blood by Coagulation assayon 01-18-2022 INR Coag (Bld) [Relative time] 1.4 {INR} [facility] Work Phone: [phone] Iron measurement (mass/mass) on 01-18-2022 Iron (Unsp spec) [Mass/Mass] 16 ug/dL 50-170 [facility] Work Phone: Laboratory - Chemistry and C hemistry - challengeon 01-18-2022 ALP [Catalytic activity/Vol] 112 U/L 45-117 [facility] Work Phone: ALT [Catalytic activity/Vol] 17 U/L 13-56 [facility] Work Phone: [phone] Cobalamin (Vitamin B12) [Mass/Vol] 343 pg/mL 211-911 [facility] Work Phone: [phone] Free T4 [Mass/Vol] 0.83 ng/dL 0.76-1.[address] [facility] [facility] Work Phone: Globulin (S) [Mass/Vol] 3.8 g/dL 2.2-4.2 [facility] Work Phone: ALP [Catalytic activity/Vol] 115 U/L 45-117 [facility] Work Phone: [phone] ALT [Catalytic activity/Vol] 23 U/L 13-56 [facility] Work Phone: [phone] CO2 [Moles/Vol] 28.0 mmol/L 21.0-32.0 [facility] Work Phone: [phone] Globulin (S) [Mass/Vol] 4.0 g/dL 2.2-4.2 [facility] Work Phone: [phone] Lipase [Catalytic activity/Vol] 139 U/L 73-393 [facility] Work Phone: [phone] Urea nitrogen/Creatinine [Mass ratio] 23.0 mg/mg 10-20 [facility] Work Phone: Laboratory - Coagulationon 0 01-18-2022 PT Coag (PPP) [Time] 17.0 s 11.7-14.9 [facility] Work Phone: Laboratory - Hematology and Cell countson 01-18-2022 Erythrocyte distribution width (RBC) [Entitic vol] 50.7 fL 35.1-43.9 [facility] Work Phone: [phone] Erythrocyte distribution width (RBC) [Ratio] 14.6 % 11.6-14.6 [facility] Work Phone: [phone] Immature granulocytes/100 WBC (Bld) 0.300 % 0.0-0.9 [facility] Work Phone: Comment on above: IG% - Immature Granu locytes (promyelocytes, myelocytes and metamyelocytes) > 1% indicates that a LEFT SHIFT is Present. MCH (RBC) [Entitic mass] 27.6 pg 27.0-32.0 [facility] Work Phone: Nucleated RBC/100 WBC (Bld) [Ratio] 0 % 0-5 [facility] Work Phone: [phone] MCHC Auto (RBC) [Mass/Vol]on 01-18-2022 MCHC (RBC) [Mass/Vol] 29.4 g/dL 32-[address] [facility] Work Phone: No Panel Informationon 01-18 Thyroid Stimulating Hormone (TSH) 2.48 uIU/mL 0.358-3.74 [facility] Work Phone: [phone] Total Iron Binding Capacity 391 ug/dL 250-450 [facility] Work Phone: [phone] Estimated Creatinine Clearance Calc 64.97 ml/min [facility] Work Phone: [phone] Estimated GFR (MDRD) Amer 87 mL/min >60 [facility] Work Phone: [phone] Comment on above: GFR Calc Estimated GFR (MDRD) Non-Af Amer 72 mL/min >60 [facility] Work Phone: [phone] Comment on above: Non- GFR Calc Troponin I High Sensitivity 4 pg/mL 3.0-54.0 [facility] Work Phone: [phone] Comment on above: Please Note: New Daniella t Units and Gender Specific Reference Ranges. For more information see Policy Stat Procedure [place] High Sensitivity Troponin (TNIH) and attachments. Platelets bldon 01-18-2022 Platelets (Bld) [#/Vol] 249 10*3/uL 150-450 [facility] Work Phone: [phone] Serum or plasma albumin paddy urement (mass/volume)on 01-18-2022 Albumin [Mass/Vol] 3.1 g/dL 3.2-5.0 [facility] Work Phone: [phone] Albumin [Mass/Vol] 3.4 g/dL 3.2-5.0 oste r [facility] Work Phone: [phone] Serum or plasma albumin/glob ulin mass ratioon 01-18-2022 Albumin/Globulin [Mass ratio] 0.8 {ratio} 0.9-2.4 [facility] Work Phone: [phone] Albumin/Globulin [Mass ratio] 0.8 {ratio} 0.9-2.4 [facility] Work Phone: [phone] Serum or plasma calcium paddy urement (mass/volume)on 01-18-2022 Calcium [Mass/Vol] 8.8 mg/dL 8.5-10.1 [facility] Work Phone: [phone] Serum or plasma creatinine m easurement (mass/volume)on 01-18-2022 Creatinine [Mass/Vol] 0.87 mg/dL 0.55-1.[address] [facility] Work Phone: [phone] Comment on above: The validity of the calculated GFR & GFRAA in patients over 70 years has not been determined. Clinical correlation is essential. Serum or plasma ferritin phil surement (mass/volume)on 01-18-2022 Ferritin [Mass/Vol] 7 ng/mL 8-252 [facility] Work Phone: [phone] Serum or plasma folate measu rement (mass/volume)on 01-18-2022 Folate [Mass/Vol] 12.30 ng/mL 3.1-55.4 [facility] Work Phone: [phone] Serum or plasma iron saturat ion measurement (mass fraction)on 01-18-2022 Iron saturation [Mass fraction] 4.1 % 15.0-55.0 [facility] Work Phone: [phone] Serum or plasma urea nitroge n measurement (mass/volume)on 01-18-2022 Urea nitrogen [Mass/Vol] 20 mg/dL 7-18 [facility] Work Phone: [phone] Thin prep Papanicolaou smear with manual screeningon 01-18-2022 Thin prep Papanicolaou smear with manual screening 51 U/L 15 [facility] Work Phone: [phone] Thin prep Papanicolaou smear with manual screening 57 U/L 1537 [facility] Work Phone: [phone] Thin prep Papanicolaou smear with manual screening 5 5-15 [facility] Work Phone: [phone] Absolute lymphocyte counton 01-15-2022 Lymphocytes Auto (Unsp spec) [#/Vol] 2.34 10*3/uL 0.83-4.51 [facility] Work Phone: Basophil percentageon 2021 Basophils/100 WBC (Bld) 0.6 % 0-1 [facility] Work Phone: Chloride [Moles/Vol] 111 mmol/L 98-107 [facility] Work Phone: Eosinophils/100 WBC (Bld) 1.8 % 0-5 [facility] Work Phone: Glucose [Mass/Vol] 89 mg/dL 74-106 [facility] Work Phone: Neutrophils (Bld) [#/Vol] 4.8 10*3/uL 2.0-7.7 [facility] Work Phone: Neutrophils/100 WBC (Bld) 61.3 % 47-70 [facility] Work Phone: Potassium [Moles/Vol] 4.6 mmol/L 3.5-5.[address] [facility] Work Phone: Sodium [Moles/Vol] 138 mmol/L 136-145 [facility] Work Phone: WBC (Bld) [#/Vol] 7.8 10*3/uL 4.4-11.0 [facility] Work Phone: Blood erythrocytes count (nu mber/volume)on 01-15-2022 RBC (Bld) [#/Vol] 2.65 10*6/uL 4.2-5.4 [facility] Work Phone: Blood hemoglobin measurement (mass/volume)on 01-15-2022 Hemoglobin (Bld) [Mass/Vol] 7.3 g/dL 12.0-15.0 [facility] Work Phone: Blood lymphocytes/100 leukoc yteson 01-15-2022 Lymphocytes/100 WBC (Bld) 30.2 % 19-41 [facility] Work Phone: Blood monocytes/100 leukocyt eson 01-15-2022 Monocytes/100 WBC (Bld) 5.8 % 0-10 [facility] Work Phone: Blood platelet mean volumeon 01-15-2022 Platelet mean volume (Bld) [Entitic vol] 11.2 fL 6.2-12.0 [facility] Work Phone: Determination of erythrocyte mean corpuscular volume (MCV)on 01-15-2022 MCV (RBC) [Entitic vol] 94.0 fL 81-99 [facility] Work Phone: Hematocrit Auto (Bld) [Volum e fraction]on 01-15-2022 Hematocrit (Bld) [Volume fraction] 24.9 % 37-47 [facility] Work Phone: INR in Blood by Coagulation assayon 01-15-2022 INR Coag (Bld) [Relative time] 1.7 {INR} [facility] Work Phone: Laboratory - Chemistry and C hemistry - challengeon 01-15-2022 CO2 [Moles/Vol] 24.0 mmol/L 21.0-32.0 [facility] Work Phone: Urea nitrogen/Creatinine [Mass ratio] 30.1 mg/mg 10-20 [facility] Work Phone: Laboratory - Coagulationon 0 01-15-2022 aPTT Coag (Bld) [Time] 41.2 s 24.1-36.2 [facility] Work Phone: PT Coag (PPP) [Time] 19.6 s 11.7-14.9 [facility] Work Phone: Laboratory - Hematology and Cell countson 01-15-2022 Erythrocyte distribution width (RBC) [Entitic vol] 50.2 fL 35.1-43.9 [facility] Work Phone: Erythrocyte distribution width (RBC) [Ratio] 14.6 % 11.6-14.6 [facility] Work Phone: Immature granulocytes/100 WBC (Bld) 0.300 % 0.0-0.9 [facility] Work Phone: Comment on above: IG% - Immature Granu locytes (promyelocytes, myelocytes and metamyelocytes) > 1% indicates that a LEFT SHIFT is Present. MCH (RBC) [Entitic mass] 27.5 pg 27.0-32.0 [facility] Work Phone: Nucleated RBC/100 WBC (Bld) [Ratio] 0 % 0-5 [facility] Work Phone: MCHC Auto (RBC) [Mass/Vol]on 01-15-2022 MCHC (RBC) [Mass/Vol] 29.3 g/dL 32-[address] [facility] Work Phone: No Panel Informationon 01-15 Estimated Creatinine Clearance Calc 47.81 ml/min [facility] Work Phone: Estimated GFR (MDRD) Amer 58 mL/min >60 [facility] Work Phone: Comment on above: GFR Calc Estimated GFR (MDRD) Non-Af Amer 48 mL/min >60 [facility] Work Phone: Comment on above: Non- GFR Calc Troponin I High Sensitivity < 3 pg/mL 3.0-54.0 [facility] Work Phone: Comment on above: Please Note: New Daniella t Units and Gender Specific Reference Ranges. For more information see Policy Stat Procedure [place] High Sensitivity Troponin (TNIH) and attachments. Platelets bldon 01-15-2022 Platelets (Bld) [#/Vol] 272 10*3/uL 150-450 [facility] Work Phone: Serum or plasma calcium paddy urement (mass/volume)on 01-15-2022 Calcium [Mass/Vol] 8.7 mg/dL 8.5-10.1 [facility] Work Phone: [phone] Serum or plasma creatinine m easurement (mass/volume)on 01-15-2022 Creatinine [Mass/Vol] 1.23 mg/dL 0.55-1.[address] [facility] Work Phone: Comment on above: The validity of the calculated GFR & GFRAA in patients over 70 years has not been determined. Clinical correlation is essential. Serum or plasma urea nitroge n measurement (mass/volume)on 01-15-2022 Urea nitrogen [Mass/Vol] 37 mg/dL 7-18 [facility] Work Phone: Thin prep Papanicolaou smear with manual screeningon 01-15-2022 Thin prep Papanicolaou smear with manual screening 3 5-15 [facility] Work Phone: Telephone Encounteron 2021 Clinical Laboratory Service Teacher Authentication Interface Message Text Last visit with [...] appointment with PCP (NAS BOOGIE) [facility] lymphocyte counton 01-10-2022 Lymphocytes Auto (Unsp spec) [#/Vol] 2.32 10*3/uL 0.83-4.51 [facility] Work Phone: Basophil percentageon 2021 Basophils/100 WBC (Bld) 0.8 % 0-1 [facility] Work Phone: Chloride [Moles/Vol] 110 mmol/L 98-107 [facility] Work Phone: Eosinophils/100 WBC (Bld) 2.1 % 0-5 [facility] Work Phone: Glucose [Mass/Vol] 118 mg/dL 74-106 [facility] Work Phone: Comment on above: Fasting Glucose resu lt from 100 to 125 mg/dL suggests IMPAIRED HOMEOSTASIS per A.D.A. criteria. Neutrophils (Bld) [#/Vol] 4.2 10*3/uL 2.0-7.7 [facility] Work Phone: Neutrophils/100 WBC (Bld) 57.7 % 47-70 [facility] Work Phone: Potassium [Moles/Vol] 4.2 mmol/L 3.5-5.1 [facility] Work [facility]: Sodium [Moles/Vol] 138 mmol/L 136-145 [facility] Work Phone: WBC (Bld) [#/Vol] 7.3 10*3/uL 4.4-11.0 [facility] Work Phone: Blood erythrocytes count (nu mber/volume)on 01-10-2022 RBC (Bld) [#/Vol] 3.14 10*6/uL 4.2-5.4 [facility] Work Phone: Blood hemoglobin measurement (mass/volume)on 01-10-2022 Hemoglobin (Bld) [Mass/Vol] 8.6 g/dL 12.0-15.0 [facility] Work Phone: Blood lymphocytes/100 leukoc yteson 01-10-2022 Lymphocytes/100 WBC (Bld) 31.7 % 19-41 [facility] Work Phone: Blood monocytes/100 leukocyt eson 01-10-2022 Monocytes/100 WBC (Bld) 7.3 % 0-10 [facility] Work Phone: [phone] Blood platelet mean volumeon 01-10-2022 Platelet mean volume (Bld) [Entitic vol] 10.8 fL 6.2-12.0 [facility] Work Phone: Determination of erythrocyte mean corpuscular volume (MCV)on 01-10-2022 MCV (RBC) [Entitic vol] 90.1 fL 81-99 [facility] Work Phone: Hematocrit Auto (Bld) [Volum e fraction]on 01-10-2022 Hematocrit (Bld) [Volume fraction] 28.3 % 37-47 [facility] Work Phone: Laboratory - Chemistry and C hemistry - challengeon 01-10-2022 CO2 [Moles/Vol] 25.0 mmol/L 21.0-32.0 [facility] Work Phone: [phone] Urea nitrogen/Creatinine [Mass ratio] 27.4 mg/mg 10-20 [facility] Work Phone: [phone] Laboratory - Hematology and Cell countson 01-10-2022 Erythrocyte distribution width (RBC) [Entitic vol] 47.4 fL 35.1-43.9 [facility] Work Phone: [phone] Erythrocyte distribution width (RBC) [Ratio] 14.5 % 11.6-14.6 [facility] Work Phone: [phone] Immature granulocytes/100 WBC (Bld) 0.400 % 0.0-0.9 [facility] Work Phone: [phone] Comment on above: IG% - Immature Granu locytes (promyelocytes, myelocytes and metamyelocytes) > 1% indicates that a LEFT SHIFT is Present. MCH (RBC) [Entitic mass] 27.4 pg 27.0-32.0 [facility] Work Phone: [phone] Nucleated RBC/100 WBC (Bld) [Ratio] 0 % 0-5 [facility] Work Phone: [phone] MCHC Auto (RBC) [Mass/Vol]on 01-10-2022 MCHC (RBC) [Mass/Vol] 30.4 g/dL 32-36 [facility] Work Phone: [phone] No Panel Informationon 01-10 Estimated Creatinine Clearance Calc 55.48 ml/min [facility] Work Phone: [phone] Estimated GFR (MDRD) Amer 69 mL/min >60 [facility] Work Phone: [phone] Comment on above: GFR Calc Estimated GFR (MDRD) Non-Af Amer 57 mL/min >60 [facility] Work Phone: [phone] Comment on above: Non- GFR Calc Platelets bldon 01-10-2022 Platelets (Bld) [#/Vol] 275 10*3/uL 150-450 [facility] Work Phone: Serum or plasma calcium paddy urement (mass/volume)on 01-10-2022 Calcium [Mass/Vol] 8.9 mg/dL 8.5-10.1 [facility] Work Phone: Serum or plasma creatinine m easurement (mass/volume)on 01-10-2022 Creatinine [Mass/Vol] 1.06 mg/dL 0.55-1.02 [facility] Work Phone: Comment on above: The validity of the calculated GFR & GFRAA in patients over 70 years has not been determined. Clinical correlation is essential. Serum or plasma urea nitroge n measurement (mass/volume)on 01-10-2022 Urea nitrogen [Mass/Vol] 29 mg/dL 7-18 [facility] Work Phone: Thin prep Papanicolaou smear with manual screeningon 01-10-2022 Thin prep Papanicolaou smear with manual screening 3 5-15 [facility] Work Phone: Telephone Encounteron 2021 Clinical Laboratory Service Teacher Authentication Interface Message Text Last visit with [...] appointment with PCP (NAS BOOGIE) Normal [facility] [facility] Absolute lymphocyte counton 12-14-2021 Lymphocytes Auto (Unsp spec) [#/Vol] 2.31 10*3/uL 0.83-4.51 [facility] Work Phone: Basophil percentageon 2021 Basophil percentage 25-50 SEEN /hpf 0-5 [facility] Work Phone: Basophils/100 WBC (Bld) 0.4 % 0-1 [facility] Work Phone: Chloride [Moles/Vol] 107 mmol/L 98-107 [facility] Work [facility]: Eosinophils/100 WBC (Bld) 1.8 % 0-5 [facility] Work Phone: Glucose [Mass/Vol] 92 mg/dL 74-106 [facility] Work Phone: Neutrophils (Bld) [#/Vol] 8.2 10*3/uL 2.0-7.7 [facility] Work Phone: Neutrophils/100 WBC (Bld) 72.1 % 47-70 [facility] Work Phone: [phone] Potassium [Moles/Vol] 4.3 mmol/L 3.5-5.[address] [facility] Work Phone: Comment on above: Slight Hemolysis, Re sult may be falsely increased. Sodium [Moles/Vol] 138 mmol/L 136-145 [facility] Work Phone: WBC (Bld) [#/Vol] 11.4 10*3/uL 4.4-11.0 [facility] Work Phone: [phone] Bilirubin Test strip Ql (U)o n 12-14-2021 Bilirubin Ql (U) Negative Negative [facility] Work Phone: Blood erythrocytes count (nu mber/volume)on 12-14-2021 RBC (Bld) [#/Vol] 2.99 10*6/uL 4.2-5.4 [facility] Work Phone: Blood hemoglobin measurement (mass/volume)on 12-14-2021 Hemoglobin (Bld) [Mass/Vol] 8.5 g/dL 12.0-15.0 [facility] Work Phone: Blood lymphocytes/100 leukoc yteson 12-14-2021 Lymphocytes/100 WBC (Bld) 20.3 % 19-41 [facility] Work Phone: Blood monocytes/100 leukocyt eson 12-14-2021 Monocytes/100 WBC (Bld) 5.0 % 0-10 [facility] Work Phone: [phone] Blood platelet mean volumeon 12-14-2021 Platelet mean volume (Bld) [Entitic vol] 10.6 fL 6.2-12.0 [facility] Work Phone: [phone] Determination of erythrocyte mean corpuscular volume (MCV)on 12-14-2021 MCV (RBC) [Entitic vol] 94.6 fL 81-99 [facility] Work Phone: [phone] Hematocrit Auto (Bld) [Volum e fraction]on 12-14-2021 Hematocrit (Bld) [Volume fraction] 28.3 % 37-47 [facility] Work Phone: [phone] Ketones Test strip Ql (U)on 12-14-2021 Ketones Ql (U) Negative Negative [facility] Work Phone: [phone] Laboratory - Chemistry and C hemistry - challengeon 12-14-2021 CO2 [Moles/Vol] 29.0 mmol/L 21.0-32.0 [facility] Work Phone: [phone] Urea nitrogen/Creatinine [Mass ratio] 20.5 mg/mg 10-20 [facility] Work Phone: [phone] Laboratory - Hematology and Cell countson 12-14-2021 Erythrocyte distribution width (RBC) [Entitic vol] 47.5 fL 35.1-43.9 [facility] Work Phone: [phone] Erythrocyte distribution width (RBC) [Ratio] 13.9 % 11.6-14.6 [facility] Work Phone: [phone] Immature granulocytes/100 WBC (Bld) 0.400 % 0.0-0.9 [facility] Work Phone: [phone] Comment on above: IG% - Immature Granu locytes (promyelocytes, myelocytes and metamyelocytes) > 1% indicates that a LEFT SHIFT is Present. MCH (RBC) [Entitic mass] 28.4 pg 27.0-32.0 [facility] Work Phone: [phone] Nucleated RBC/100 WBC (Bld) [Ratio] 0 % 0-5 [facility] Work Phone: MCHC Auto (RBC) [Mass/Vol]on 12-14-2021 MCHC (RBC) [Mass/Vol] 30.0 g/dL 32-[address] [facility] Work Phone: Mucus LM Ql (Urine sed)on Mucus Ql (Urine sed) 0 SEEN /hpf [facility] Work Phone: [phone] Nitrite Test strip Ql (U)on 12-14-2021 Nitrite Ql (U) Negative Negative [facility] Work Phone: No Panel Informationon 12-14 Estimated Creatinine Clearance Calc 50.47 ml/min [facility] Work Phone: Estimated GFR (MDRD) Amer 65 mL/min >60 [facility] Work Phone: Comment on above: GFR Calc Estimated GFR (MDRD) Non-Af Amer 54 mL/min >60 [facility] Work Phone: Comment on above: Non- GFR Calc Platelets bldon 12-14-2021 Platelets (Bld) [#/Vol] 341 10*3/uL 150-450 [facility] Work Phone: Protein Test strip Ql (U)on 12-14-2021 Protein Ql (U) Negative Negative [facility] Work Phone: [phone] Serum or plasma calcium paddy urement (mass/volume)on 12-14-2021 Calcium [Mass/Vol] 9.3 mg/dL 8.5-10.1 [facility] Work Phone: [phone] Serum or plasma creatinine m easurement (mass/volume)on 12-14-2021 Creatinine [Mass/Vol] 1.12 mg/dL 0.55-1.[address] [facility] Work Phone: [phone] Comment on above: The validity of the calculated GFR & GFRAA in patients over 70 years has not been determined. Clinical correlation is essential. Serum or plasma urea nitroge n measurement (mass/volume)on 12-14-2021 Urea nitrogen [Mass/Vol] 23 mg/dL 7-18 [facility] Work Phone: [phone] Squamous epithelial cells de tection in urine sediment by light microscopyon 12-14-2021 Epithelial cells.squamous LM Ql (Urine sed) 5-10 SEEN /hpf 5-10 [facility] Work Phone: Thin prep Papanicolaou smear with manual screeningon 12-14-2021 Thin prep Papanicolaou smear with manual screening 2 5-15 [facility] Work Phone: Urine blood detectionon 11-21 RBC Ql (U) 10 /ul Negative [facility] Work Phone: [phone] RBC Ql (U) 0 SEEN /hpf 0-5 [facility] Work Phone: Urine clarityon 12-14-2021 Clarity (U) Sl. Cloudy Clear [facility] Work Phone: Urine color determinationon 12-14-2021 Color (U) Straw Yellow [facility] Work Phone: Urine glucose detectionon Glucose Ql (U) Normal mg/dl Normal [facility] Work Phone: Urine leukocyte esterase det ection by dipstickon 12-14-2021 Leukocyte esterase Test strip Ql (U) 500 /ul Negative [facility] Work Phone: Urine pHon 12-14-2021 pH (U) 6.0 [pH] 5.0 - 8.0 [facility] Work Phone: Urine sediment bacteria coun t by microscopy (number/high power field)on 12-14-2021 Bacteria LM.HPF (Urine sed) [#/Area] 1 /[HPF] None Seen [facility] Work Phone: Urine sediment renal epithel ial cell count by microscopy (number/high power field)on 12-14-2021 Epithelial cells.renal LM.HPF (Urine sed) [#/Area] 0 /[HPF] 0-5 [facility] Work Phone: Urine specific gravity measu rementon 12-14-2021 Specific gravity (U) [Rel density] 1.010 1.002-1.03 0 [facility] Work Phone: [phone] Urobilinogen Auto test strip Ql (U)on 12-14-2021 Urobilinogen Ql (U) Normal mg/dl Normal [facility] Work Phone: [phone] Albumin Elph [Mass/Vol]on Albumin [Mass/Vol] Not Reportable [facility] Work Phone: [phone] Interpretation of serum or p lasma protein pattern by immunofixation (narrative resulton 12-12-2021 Protein Fractions Immunofixation James [Interp] Not Reportable [facility] Work Phone: [phone] Laboratory - Chemistry and C hemistry - challengeon 12-12-2021 Cobalamin (Vitamin B12) [Mass/Vol] 436 pg/mL 211-911 [facility] Work Phone: [phone] Serum [id number]-hanrncac measu rement by electrophoresison 12-12-2021 Alpha 1 globulin Elph [Mass/Vol] Not Reportable [facility] Work Phone: [phone] Serum or plasma IgA measurem ent (mass/volume)on 12-12-2021 IgA [Mass/Vol] Not Reportable [facility] Work Phone: [phone] Serum or plasma IgG measurem ent (mass/volume)on 12-12-2021 IgG [Mass/Vol] Not Reportable [facility] Work Phone: [phone] Serum or plasma IgM measurem ent (mass/volume)on 12-12-2021 IgM [Mass/Vol] Not Reportable [facility] Work Phone: [phone] Serum or plasma beta globuli n measurement by electrophoresis (mass/volume)on 12-12-2021 Beta globulin Elph [Mass/Vol] Not Reportable [facility] Work Phone: [phone] Serum or plasma gamma globul in measurement by electrophoresis (mass/volume)on 12-12-2021 Gamma globulin Elph [Mass/Vol] Not Reportable [facility] Work Phone: Thin prep Papanicolaou smear with manual screeningon 12-12-2021 Thin prep Papanicolaou smear with manual screening Not Reportable [facility] Work Phone: Total protein bloodon 2021 Protein [Mass/Vol] See comment [facility] Work Phone: Comment on above: TEST RESULT LIMITSIF E and PE, SerumImmunoglobulin G, Qn, Serum 974 mg/dL [phone] A, Qn, Serum 357 High mg/dL 87-352Immunoglobulin M, Qn, Serum 175 mg/dL 26-217Protein, Total 6.9 g/dL 6.0-8.5Albumin 3.4 g/dL 2.9-4.0Bujxt-7-Rxmthqjw 0.3 g/dL 0.0-0.8Jxxzw-9-Zeihskcl 1.0 g/dL 0.4-1.0Beta Globulin 1.1 g/dL 0.7-1.3Gamma Globulin 1.0 g/dL 0.4-1.8M-Darwin Not Observed g/dL Not ObservedGlobulin, Total 3.5 g/dL 2.2-3.9A/G Ratio 1.0 0.7-1.7Immunofixation Result, Serum No monoclonality detected.Please note: Protein electrophoresis scan will follow via computer, mail, or plastic top assembler delivery. __ TESTING PERFORMED AT [facility]. ORIGINAL REPORT ON FILE IN LAB CONTAINS ADDITIONAL TEST SITE INFORMATION. 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 Normal [facility] [employer] [facility] Absolute lymphocyte counton 04-14-2022 Lymphocytes Auto (Unsp spec) [#/Vol] 1.84 10*3/uL 0.83-4.51 [facility] Work Phone: Basophil percentageon 2021 Basophil percentage 25-50 SEEN /hpf 0-5 [facility] Work Phone: Basophils/100 WBC (Bld) 0.4 % 0-1 [facility] Work Phone: Chloride [Moles/Vol] 108 mmol/L 98-107 [facility] Work Phone: Eosinophils/100 WBC (Bld) 1.4 % 0-5 [facility] Work Phone: Glucose [Mass/Vol] 104 mg/dL 74-106 [facility] Work Phone: Comment on above: Fasting Glucose resu lt from 100 to 125 mg/dL suggests IMPAIRED HOMEOSTASIS per A.D.A. criteria. Neutrophils (Bld) [#/Vol] 5.4 10*3/uL 2.0-7.7 [facility] Work Phone: Neutrophils/100 WBC (Bld) 67.5 % 47-70 [facility] Work Phone: Potassium [Moles/Vol] 3.8 mmol/L 3.5-5.[address] [facility] Work Phone: Sodium [Moles/Vol] 140 mmol/L 136-145 [facility] Work Phone: WBC (Bld) [#/Vol] 8.1 10*3/uL 4.4-11.0 [facility] Work Phone: Bilirubin Test strip Ql (U)o n 11-03-2021 Bilirubin Ql (U) Negative Negative [facility] Work Phone: Blood erythrocytes count (nu mber/volume)on 11-03-2021 RBC (Bld) [#/Vol] 3.22 10*6/uL 4.2-5.4 [facility] Work Phone: Blood hemoglobin measurement (mass/volume)on 11-03-2021 Hemoglobin (Bld) [Mass/Vol] 9.7 g/dL 12.0-15.0 [facility] Work Phone: Blood lymphocytes/100 leukoc yteson 11-03-2021 Lymphocytes/100 WBC (Bld) 22.8 % 19-41 [facility] Work Phone: [phone] Blood monocytes/100 leukocyt eson 11-03-2021 Monocytes/100 WBC (Bld) 7.7 % 0-10 [facility] Work Phone: [phone] Blood platelet mean volumeon 11-03-2021 Platelet mean volume (Bld) [Entitic vol] 10.9 fL 6.2-12.0 [facility] Work Phone: [phone] Culture, urineon 11-03-2021 Bacteria identified Cx Nom (U) Escherichia coli [facility] Work Phone: [phone] Determination of erythrocyte mean corpuscular volume (MCV)on 11-03-2021 MCV (RBC) [Entitic vol] 93.2 fL 81-99 [facility] Work Phone: Hematocrit Auto (Bld) [Volum e fraction]on 11-03-2021 Hematocrit (Bld) [Volume fraction] 30.0 % 37-47 [facility] Work Phone: Ketones Test strip Ql (U)on 11-03-2021 Ketones Ql (U) 5 mg/dl Negative [facility] Work Phone: Laboratory - Chemistry and C hemistry - challengeon 11-03-2021 CK [Catalytic activity/Vol] 59 U/L 26-192 [facility] Work Phone: [phone] CO2 [Moles/Vol] 27.0 mmol/L 21.0-32.0 [facility] Work Phone: [phone] Urea nitrogen/Creatinine [Mass ratio] 17.7 mg/mg 10-20 [facility] Work Phone: [phone] Laboratory - Hematology and Cell countson 11-03-2021 Erythrocyte distribution width (RBC) [Entitic vol] 45.4 fL 35.1-43.9 [facility] Work Phone: [phone] Erythrocyte distribution width (RBC) [Ratio] 13.2 % 11.6-14.6 [facility] Work Phone: [phone] Immature granulocytes/100 WBC (Bld) 0.200 % 0.0-0.9 [facility] Work Phone: [phone] Comment on above: IG% - Immature Granu locytes (promyelocytes, myelocytes and metamyelocytes) > 1% indicates that a LEFT SHIFT is Present. MCH (RBC) [Entitic mass] 30.1 pg 27.0-32.0 [facility] Work Phone: Nucleated RBC/100 WBC (Bld) [Ratio] 0 % 0-5 [facility] Work Phone: [phone] MCHC Auto (RBC) [Mass/Vol]on 11-03-2021 MCHC (RBC) [Mass/Vol] 32.3 g/dL 32-[address] [facility] Work Phone: Mucus LM Ql (Urine sed)on Mucus Ql (Urine sed) RARE /hpf [facility] Work Phone: [phone] Nitrite Test strip Ql (U)on 11-03-2021 Nitrite Ql (U) Positive Negative [facility] Work Phone: No Panel Informationon 11-03 Estimated Creatinine Clearance Calc 74.44 ml/min [facility] Work Phone: [phone] Estimated GFR (MDRD) Amer 97 mL/min >60 [facility] Work Phone: [phone] Comment on above: GFR Calc Estimated GFR (MDRD) Non-Af Amer 80 mL/min >60 [facility] Health Work Phone: [phone] Comment on above: Non- GFR Calc Troponin I High Sensitivity < 3 pg/mL 3.0-54.0 [facility] Work Phone: Comment on above: Please Note: New Daniella t Units and Gender Specific Reference Ranges. For more information see Policy Stat Procedure [place] High Sensitivity Troponin (TNIH) and attachments. Platelets bldon 11-03-2021 Platelets (Bld) [#/Vol] 255 10*3/uL 150-450 [facility] Work Phone: Protein Test strip Ql (U)on 11-03-2021 Protein Ql (U) 15 mg/dl Negative [facility] Work Phone: Serum or plasma calcium paddy urement (mass/volume)on 11-03-2021 Calcium [Mass/Vol] 9.4 mg/dL 8.5-10.1 [facility] Work Phone: [phone] Serum or plasma creatinine m easurement (mass/volume)on 11-03-2021 Creatinine [Mass/Vol] 0.79 mg/dL 0.55-1.[address] [facility] Work Phone: Comment on above: The validity of the calculated GFR & GFRAA in patients over 70 years has not been determined. Clinical correlation is essential. Serum or plasma urea nitroge n measurement (mass/volume)on 11-03-2021 Urea nitrogen [Mass/Vol] 14 mg/dL 7-18 [facility] Work Phone: Squamous epithelial cells de tection in urine sediment by light microscopyon 11-03-2021 Epithelial cells.squamous LM Ql (Urine sed) 0 SEEN /hpf 5-10 [facility] Work Phone: Thin prep Papanicolaou smear with manual screeningon 11-03-2021 Thin prep Papanicolaou smear with manual screening 5 5-15 [facility] Work Phone: Urine blood detectionon 10-21 RBC Ql (U) 25 /ul Negative [facility] Work Phone: [phone] RBC Ql (U) 0 SEEN /hpf 0-5 [facility] Work Phone: [phone] Urine clarityon 11-03-2021 Clarity (U) Cloudy Clear [facility] Work Phone: Urine color determinationon 11-03-2021 Color (U) Yellow Yellow [facility] Work Phone: [phone] Urine glucose detectionon Glucose Ql (U) Normal mg/dl Normal [facility] Work Phone: Urine leukocyte esterase det ection by dipstickon 11-03-2021 Leukocyte esterase Test strip Ql (U) 100 /ul Negative [facility] Work Phone: Urine pHon 11-03-2021 pH (U) 5.0 [pH] 5.0 - 8.0 [facility] Work Phone: Urine sediment bacteria coun t by microscopy (number/high power field)on 11-03-2021 Bacteria LM.HPF (Urine sed) [#/Area] 4 /[HPF] None Seen [facility] Work Phone: Urine specific gravity measu rementon 11-03-2021 Specific gravity (U) [Rel density] 1.020 1.002-1.03 0 [facility] Work Phone: Urobilinogen Auto test strip Ql (U)on 11-03-2021 Urobilinogen Ql (U) Normal mg/dl Normal [facility] Work Phone: Progress Noteson 11-02-2021 Clinical Laboratory Service Teacher Authentication Interface Message Text This visit has been rescheduled as a phone visit to comply with patient safety concerns in accordance with CDC recommendations. Telephone Encounter This visit was performed via interactive telehealth. This visit was initiated by the patient / provider and the patient and provider interacted in real time. Location of the patient: Home of patient Location of the provider: [facility] Main Reviewed informed consent with patient: yes [...] dialogue with therapist: Yes Suicide Screener: C-SSRS [place]-Suicide Severity Rating Scale Able to complete [place]-Suicide Severity Rating Scale with Patient?: Yes 1) [...] a (more content not included)... Normal [facility] Basophil percentageon 2021 Ammonia (P) [Moles/Vol] 18.0 umol/L 11-32 [facility] Work Phone: Bilirubin [Mass/Vol] 0.20 mg/dL 0.20-1.00 [facility] Work Phone: Comment on above: For patients on eltr ombopag therapy, use of Dimension [place] TBIL is not recommended. Chloride [Moles/Vol] 107 mmol/L 98-107 [facility] Work Phone: Glucose [Mass/Vol] 113 mg/dL 74-106 [facility] Work Phone: Comment on above: Fasting Glucose resu lt from 100 to 125 mg/dL suggests IMPAIRED HOMEOSTASIS per A.D.A. criteria. Potassium [Moles/Vol] 4.1 mmol/L 3.5-5.[address] [facility] Work Phone: Protein [Mass/Vol] 7.8 g/dL 6.4-8.2 [facility] Work Phone: [phone] Sodium [Moles/Vol] 136 mmol/L 136-145 [facility] Work Phone: [phone] WBC (Bld) [#/Vol] 5.5 10*3/uL 4.4-11.0 [facility] Work Phone: Blood erythrocytes count (nu mber/volume)on 10-26-2021 RBC (Bld) [#/Vol] 3.21 10*6/uL 4.2-5.4 [facility] Work Phone: Blood hemoglobin measurement (mass/volume)on 10-26-2021 Hemoglobin (Bld) [Mass/Vol] 9.5 g/dL 12.0-15.0 [facility] Work Phone: Blood platelet mean volumeon 10-26-2021 Platelet mean volume (Bld) [Entitic vol] 10.8 fL 6.2-12.0 [facility] Work Phone: CT UROGRAM WO/W IVCONon - [facility] Determination of erythrocyte mean corpuscular volume (MCV)on 10-26-2021 MCV (RBC) [Entitic vol] 97.2 fL 81-99 [facility] Work Phone: Hematocrit Auto (Bld) [Volum e fraction]on 10-26-2021 Hematocrit (Bld) [Volume fraction] 31.2 % 37-47 [facility] Work Phone: Iron measurement (mass/mass) on 10-26-2021 Iron (Unsp spec) [Mass/Mass] 61 ug/dL 50-170 [facility] Work Phone: [phone] Laboratory - Chemistry and C hemistry - challengeon 10-26-2021 ALP [Catalytic activity/Vol] 75 U/L 45-117 [facility] Work Phone: [phone] ALT [Catalytic activity/Vol] 28 U/L 13-56 [facility] Work Phone: [phone] CO2 [Moles/Vol] 27.0 mmol/L 21.0-32.0 [facility] Work Phone: [phone] Globulin (S) [Mass/Vol] 3.9 g/dL 2.2-4.2 [facility] Work Phone: [phone] Urea nitrogen/Creatinine [Mass ratio] 26.4 mg/mg 10-20 [facility] Work Phone: [phone] Laboratory - Hematology and Cell countson 10-26-2021 Erythrocyte distribution width (RBC) [Entitic vol] 48.5 fL 35.1-43.9 [facility] Work Phone: [phone] Erythrocyte distribution width (RBC) [Ratio] 13.5 % 11.6-14.6 [facility] Work Phone: [phone] MCH (RBC) [Entitic mass] 29.6 pg 27.0-32.0 [facility] Work Phone: [phone] MCHC Auto (RBC) [Mass/Vol]on 10-26-2021 MCHC (RBC) [Mass/Vol] 30.4 g/dL 32-[address] [facility] Work Phone: [phone] Panel Informationon 10-26 Estimated GFR (MDRD) Amer 91 mL/min >60 [facility] Work Phone: [phone] Comment on above: GFR Calc Estimated GFR (MDRD) Non-Af Amer 75 mL/min >60 [facility] Work Phone: [phone] Comment on above: Non- GFR Calc Free Lambda Light Chains, Quant 16.5 mg/L 5.7-26.3 [facility] Work Phone: [phone] Levetiracetam (Keppra) Level 14.9 ug/mL 10.0-40.0 [facility] Work Phone: [phone] Comment on above: Performed at: - L [address] [id number] Director: Eliseo Yañez PhD, Phone: [phone] at: BN - [facility] [address] [id number] Director: Azalia Rosen MD, Phone: [phone] Thyroid Stimulating Hormone (TSH) 1.22 uIU/mL 0.358-3.74 [facility] Work Phone: [phone] Whole Blood Vitamin B1 Level 131.9 nmol/L 66.5-200.0 [facility] Work Phone: [phone] Platelets bldon 10-26-2021 Platelets (Bld) [#/Vol] 272 10*3/uL 150-450 [facility] Work Phone: [phone] Serum immunoglobulin kappa l ight chains/immunoglobulin lambda light chains mass ratioon 10-26-2021 Immunoglobulin light chains.kappa/Immunogl obulin light chains.lambda (S) [Mass ratio] 1.55 0.26-1.65 [facility] Work Phone: [phone] Serum or plasma albumin paddy urement (mass/volume)on 10-26-2021 Albumin [Mass/Vol] 3.9 g/dL 3.2-5.0 [facility] Work Phone: [phone] Serum or plasma albumin/glob ulin mass ratioon 10-26-2021 Albumin/Globulin [Mass ratio] 1.0 {ratio} 0.9-2.4 [facility] Work Phone: [phone] Serum or plasma calcium paddy urement (mass/volume)on 10-26-2021 Calcium [Mass/Vol] 9.3 mg/dL 8.5-10.1 [facility] Work Phone: [phone] Serum or plasma creatinine m easurement (mass/volume)on 10-26-2021 Creatinine [Mass/Vol] 0.83 mg/dL 0.55-1.02 [facility] Work Phone: Comment on above: The validity of the calculated GFR & GFRAA in patients over 70 years has not been determined. Clinical correlation is essential. Serum or plasma ferritin phil surement (mass/volume)on 10-26-2021 Ferritin [Mass/Vol] 47 ng/mL 8-252 [facility] Work Phone: Serum or plasma folate measu rement (mass/volume)on 10-26-2021 Folate [Mass/Vol] 8.90 ng/mL 3.1-55.4 [facility] Work Phone: Serum or plasma immunoglobul in kappa light chains measurement (mass/volume)on 10-26-2021 Immunoglobulin light chains.kappa [Mass/Vol] 25.5 mg/L 3.3-19.4 [facility] Work Phone: Serum or plasma urea nitroge n measurement (mass/volume)on 10-26-2021 Urea nitrogen [Mass/Vol] 22 mg/dL 7-18 [facility] Work Phone: Thin prep Papanicolaou smear with manual screeningon 10-26-2021 Thin prep Papanicolaou smear with manual screening 18 U/L 15-37 [facility] Work Phone: Thin prep Papanicolaou smear with manual screening 2 5-15 [facility] Work Phone: [facility] FELISHA PERRIN ([id number]) 1965 F Date Time Provider Department 10/18/21 RONAL PEREYRA JR During your visit today, we recorded the following information about you: Yari Crockett 10/18/2021 2:16 PM Signed Left pt scheduled with Dr. Pereyra in [facility] 11/02/21 @ 2:[address] prior [...] 1 tablet by mouth twice daily. Per [facility]. - Mirtazapine (REMERON) 7.5 mg tablet Take 1 tablet by mouth daily at bedtime. Per [facility]. - acetaminophen (TYLENOL EXTRA STRENGTH) 500 mg tablet Take 1,000 mg by mouth every 8 hours as needed. - venlafaxine ER (EFFEXOR XR) 75 mg 24 hr capsule Take 75 mg by mouth once daily. Plus 37.5 mg capsule. [facility]. - venlafaxine ER (EFFEXOR XR) 37.5 mg 24 hr capsule Take 37.5 mg by mouth once daily. Plus 75 mg capsule. [facility]. - mometasone (ELOCON) 0.1 % cream [...] Eating disorder, unspecified [F50.9] 10/10/2012 Morbid obesity ([facility]) [E66.01] 09/03/2018 Hypothyroidism [E03.9] 09/03/2018 Unilateral emphysema ([facility]) [J43.0] 12/21/2015 Hypertension [I10] 07/07/2015 GERD (gastroesophageal reflux disease) [K21.9] Anxiety [F41.9] Arthritis [M19.90] Asthma [J45.909] 09/26/2017 Depression [F32.A] Epilepsy (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) [I26.99] 01/17/2016 05/28/2017 Hypoxemia [R09.02] 01/17/2016 09/26/2017 STEPHANIE (obstructive sleep apnea) [G47.33] 02/02/2016 Asthma with chronic obstruct (more content not included)... Normal [facility] Absolute lymphocyte counton 10-10-2021 Lymphocytes Auto (Unsp spec) [#/Vol] 1.75 10*3/uL 0.83-4.51 [facility] Work Phone: Basophil percentageon 2021 Basophils/100 WBC (Bld) 0.6 % 0-1 [facility] Work Phone: Eosinophils/100 WBC (Bld) 1.5 % 0-5 [facility] Work Phone: Neutrophils (Bld) [#/Vol] 4.3 10*3/uL 2.0-7.7 [facility] Work Phone: Neutrophils/100 WBC (Bld) 64.2 % 47-70 [facility] Work Phone: WBC (Bld) [#/Vol] 6.6 10*3/uL 4.4-11.0 [facility] Work Phone: Blood erythrocytes count (nu mber/volume)on 10-10-2021 RBC (Bld) [#/Vol] 2.97 10*6/uL 4.2-5.4 [facility] Work Phone: Blood hemoglobin measurement (mass/volume)on 10-10-2021 Hemoglobin (Bld) [Mass/Vol] 9.1 g/dL 12.0-15.0 [facility] Work Phone: Blood lymphocytes/100 leukoc yteson 10-10-2021 Lymphocytes/100 WBC (Bld) 26.4 % 19-41 [facility] Work Phone: Blood monocytes/100 leukocyt eson 10-10-2021 Monocytes/100 WBC (Bld) 6.8 % 0-10 [facility] Work Phone: Blood platelet mean volumeon 10-10-2021 Platelet mean volume (Bld) [Entitic vol] 11.5 fL 6.2-12.0 [facility] Work Phone: Determination of erythrocyte mean corpuscular volume (MCV)on 10-10-2021 MCV (RBC) [Entitic vol] 95.3 fL 81-99 [facility] Work Phone: Hematocrit Auto (Bld) [Volum e fraction]on 10-10-2021 Hematocrit (Bld) [Volume fraction] 28.3 % 37-47 [facility] Work Phone: Hemoglobin in reticulocytes (mass per reticulocyte)on 10-10-2021 Hemoglobin (Reticulocytes) [Entitic mass] 32.1 pg 30-35 [facility] Work Phone: INR in Blood by Coagulation assayon 10-10-2021 INR Coag (Bld) [Relative time] 1.1 {INR} [facility] Work Phone: [phone] Iron measurement (mass/mass) on 10-10-2021 Iron (Unsp spec) [Mass/Mass] 33 ug/dL 50-170 [facility] Work Phone: [phone] Laboratory - Chemistry and C hemistry - challengeon 10-10-2021 Transferrin [Mass/Vol] 255 mg/dL 192-364 [facility] Work Phone: [phone] Comment on above: Performed at: [address] [id number] Director: Eliseo Yañez PhD, Phone: [phone] Laboratory - Coagulationon 0 10-10-2021 PT Coag (PPP) [Time] 13.3 s 11.7-14.9 [facility] Work Phone: [phone] Laboratory - Hematology and Cell countson 10-10-2021 Erythrocyte distribution width (RBC) [Entitic vol] 48.3 fL 35.1-43.9 [facility] Work Phone: [phone] Erythrocyte distribution width (RBC) [Ratio] 14.0 % 11.6-14.6 [facility] Work Phone: [phone] Immature granulocytes/100 WBC (Bld) 0.500 % 0.0-0.9 [facility] Work Phone: [phone] Comment on above: IG% - Immature Granu locytes (promyelocytes, myelocytes and metamyelocytes) > 1% indicates that a LEFT SHIFT is Present. MCH (RBC) [Entitic mass] 30.6 pg 27.0-32.0 [facility] Work Phone: [phone] Nucleated RBC/100 WBC (Bld) [Ratio] 0 % 0-5 [facility] Work Phone: [phone] MCHC Auto (RBC) [Mass/Vol]on 10-10-2021 MCHC (RBC) [Mass/Vol] 32.2 g/dL 32-[address] [facility] Work Phone: [phone] Panel Informationon 10-10 Immature Reticulocyte Fraction 26.40 % 3.00-15.90 [facility] Work Phone: [phone] Reticulocyte Count 2.00 % 0.5-1.5 [facility] Work Phone: Total Iron Binding Capacity 343 ug/dL 250-450 [facility] Work Phone: Platelets bldon 10-10-2021 Platelets (Bld) [#/Vol] 208 10*3/uL 150-450 [facility] Work Phone: Serum or plasma ferritin phil surement (mass/volume)on 10-10-2021 Ferritin [Mass/Vol] 29 ng/mL 8-252 [facility] Work Phone: Serum or plasma iron saturat ion measurement (mass fraction)on 10-10-2021 Iron saturation [Mass fraction] 9.6 % 15.0-55.0 [facility] Work Phone: Absolute lymphocyte counton 09-22-2021 Lymphocytes Auto (Unsp spec) [#/Vol] 2.43 10*3/uL 0.83-4.51 [facility] Work Phone: Basophil percentageon 2021 Basophil percentage 0 SEEN /hpf 0-5 [facility] Work Phone: Basophils/100 WBC (Bld) 0.8 % 0-1 [facility] Work Phone: Chloride [Moles/Vol] 107 mmol/L 98-107 [facility] Work Phone: Eosinophils/100 WBC (Bld) 5.3 % 0-5 [facility] Work Phone: Glucose [Mass/Vol] 109 mg/dL 74-106 [facility] Work Phone: Comment on above: Fasting Glucose resu lt from 100 to 125 mg/dL suggests IMPAIRED HOMEOSTASIS per A.D.A. criteria. Neutrophils (Bld) [#/Vol] 3.8 10*3/uL 2.0-7.7 [facility] Work Phone: Neutrophils/100 WBC (Bld) 52.2 % 47-70 [facility] Work Phone: Potassium [Moles/Vol] 4.1 mmol/L 3.5-5.[address] [facility] Work Phone: Sodium [Moles/Vol] 138 mmol/L 136-145 [facility] Work Phone: WBC (Bld) [#/Vol] 7.2 10*3/uL 4.4-11.0 [facility] Work Phone: Bilirubin Test strip Ql (U)o n 09-22-2021 Bilirubin Ql (U) Negative Negative [facility] Work Phone: Blood erythrocytes count (nu mber/volume)on 09-22-2021 RBC (Bld) [#/Vol] 3.25 10*6/uL 4.2-5.4 [facility] Work Phone: Blood hemoglobin measurement (mass/volume)on 09-22-2021 Hemoglobin (Bld) [Mass/Vol] 10.0 g/dL 12.0-15.0 [facility] Work Phone: Blood lymphocytes/100 leukoc yteson 09-22-2021 Lymphocytes/100 WBC (Bld) 33.8 % 19-41 [facility] Work Phone: Blood monocytes/100 leukocyt eson 09-22-2021 Monocytes/100 WBC (Bld) 7.6 % 0-10 [facility] Work Phone: Blood platelet mean volumeon 09-22-2021 Platelet mean volume (Bld) [Entitic vol] 11.2 fL 6.2-12.0 [facility] Work Phone: Determination of erythrocyte mean corpuscular volume (MCV)on 09-22-2021 MCV (RBC) [Entitic vol] 94.2 fL 81-99 [facility] Work Phone: Hematocrit Auto (Bld) [Volum e fraction]on 09-22-2021 Hematocrit (Bld) [Volume fraction] 30.6 % 37-47 [facility] Work Phone: Ketones Test strip Ql (U)on 09-22-2021 Ketones Ql (U) Negative Negative [facility] Work Phone: Laboratory - Chemistry and C hemistry - challengeon 09-22-2021 CO2 [Moles/Vol] 28.0 mmol/L 21.0-32.0 [facility] Work Phone: [phone] Urea nitrogen/Creatinine [Mass ratio] 17.2 mg/mg 10-20 [facility] Work Phone: [phone] Laboratory - Hematology and Cell countson 09-22-2021 Erythrocyte distribution width (RBC) [Entitic vol] 48.5 fL 35.1-43.9 [facility] Work Phone: [phone] Erythrocyte distribution width (RBC) [Ratio] 14.2 % 11.6-14.6 [facility] Work Phone: [phone] Immature granulocytes/100 WBC (Bld) 0.300 % 0.0-0.9 [facility] Work Phone: [phone] Comment on above: IG% - Immature Granu locytes (promyelocytes, myelocytes and metamyelocytes) > 1% indicates that a LEFT SHIFT is Present. MCH (RBC) [Entitic mass] 30.8 pg 27.0-32.0 [facility] Work Phone: [phone] Nucleated RBC/100 WBC (Bld) [Ratio] 0 % 0-5 [facility] Work Phone: [phone] MCHC Auto (RBC) [Mass/Vol]on 09-22-2021 MCHC (RBC) [Mass/Vol] 32.7 g/dL 32-[address] [facility] Work Phone: [phone] Mucus LM Ql (Urine sed)on Mucus Ql (Urine sed) 0 SEEN /hpf [facility] Work Phone: [phone] Nitrite Test strip Ql (U)on 09-22-2021 Nitrite Ql (U) Negative Negative [facility] Work Phone: [phone] Panel Informationon 09-22 Estimated Creatinine Clearance Calc 51.30 ml/min [facility] Work Phone: [phone] Estimated GFR (MDRD) Amer 62 mL/min >60 [facility] Work Phone: Comment on above: GFR Calc Estimated GFR (MDRD) Non-Af Amer 51 mL/min >60 [facility] Work Phone: Comment on above: Non- GFR Calc Platelets bldon 09-22-2021 Platelets (Bld) [#/Vol] 317 10*3/uL 150-450 [facility] Work Phone: [phone] Protein Test strip Ql (U)on 09-22-2021 Protein Ql (U) Negative Negative [facility] Work Phone: [phone] Serum or plasma calcium paddy urement (mass/volume)on 09-22-2021 Calcium [Mass/Vol] 9.3 mg/dL 8.5-10.1 [facility] Work Phone: [phone] Serum or plasma creatinine m easurement (mass/volume)on 09-22-2021 Creatinine [Mass/Vol] 1.16 mg/dL 0.55-1.[address] [facility] Work Phone: Comment on above: The validity of the calculated GFR & GFRAA in patients over 70 years has not been determined. Clinical correlation is essential. Serum or plasma urea nitroge n measurement (mass/volume)on 09-22-2021 Urea nitrogen [Mass/Vol] 20 mg/dL 7-18 [facility] Work Phone: [phone] Squamous epithelial cells de tection in urine sediment by light microscopyon 09-22-2021 Epithelial cells.squamous LM Ql (Urine sed) 0 SEEN /hpf 5-10 [facility] Work Phone: [phone] Thin prep Papanicolaou smear with manual screeningon 09-22-2021 Thin prep Papanicolaou smear with manual screening 3 5-15 [facility] Work Phone: [phone] Urine blood detectionon RBC Ql (U) Negative Negative [facility] Work Phone: [phone] RBC Ql (U) 0 SEEN /hpf 0-5 [facility] Work Phone: [phone] Urine clarityon 09-22-2021 Clarity (U) Clear Clear [facility] Work Phone: Urine color determinationon 09-22-2021 Color (U) Yellow Yellow [facility] Work Phone: Urine glucose detectionon Glucose Ql (U) Normal mg/dl Normal [facility] Work Phone: Urine leukocyte esterase det ection by dipstickon 09-22-2021 Leukocyte esterase Test strip Ql (U) 25 /ul Negative [facility] Work Phone: Urine pHon 09-22-2021 pH (U) 7.0 [pH] 5.0 - 8.0 [facility] Work Phone: Urine sediment bacteria coun t by microscopy (number/high power field)on 09-22-2021 Bacteria LM.HPF (Urine sed) [#/Area] 0 /[HPF] None Seen [facility] Work Phone: Urine specific gravity measu rementon 09-22-2021 Specific gravity (U) [Rel density] 1.010 1.002-1.03 0 [facility] Work Phone: Urobilinogen Auto test strip Ql (U)on 09-22-2021 Urobilinogen Ql (U) Normal mg/dl Normal [facility] Work Phone: Absolute lymphocyte counton 09-15-2021 Lymphocytes Auto (Unsp spec) [#/Vol] 1.75 10*3/uL 0.83-4.51 [facility] Work Phone: Atypical perinuclear antineu trophil cytoplasmic antibodies measurementon 09-15-2021 Neutrophil cytoplasmic Ab.perinuclear.atypic al IF (S) [Titer] <1:20 titer Neg:<1:20 [facility] Work Phone: Comment on above: The atypical pANCA p attern has been observed in asignificant percentage of patients with ulcerative colitis,primary sclerosing cholangitis and autoimmune hepatitis. Basophil percentageon 2021 Basophil percentage < 0.2 AI 0.0-0.9 [facility] Work Phone: Ammonia (P) [Moles/Vol] 35.0 umol/L 11-32 [facility] Work Phone: Basophils/100 WBC (Bld) 0.9 % 0-1 [facility] Work Phone: Bilirubin [Mass/Vol] 0.60 mg/dL 0.20-1.00 [facility] Work Phone: Comment on above: For patients on eltr ombopag therapy, use of Dimension [place] TBIL is not recommended. Chloride [Moles/Vol] 108 mmol/L 98-107 [facility] Work Phone: Eosinophils/100 WBC (Bld) 3.9 % 0-5 [facility] Work Phone: Glucose [Mass/Vol] 94 mg/dL 74-106 [facility] Work Phone: Neutrophils (Bld) [#/Vol] 4.1 10*3/uL 2.0-7.7 [facility] Work Phone: Neutrophils/100 WBC (Bld) 61.8 % 47-70 [facility] Work Phone: Potassium [Moles/Vol] 4.5 mmol/L 3.5-5.[address] [facility] Work Phone: Protein [Mass/Vol] 7.6 g/dL 6.4-8.2 [facility] Work Phone: Sodium [Moles/Vol] 139 mmol/L 136-145 [facility] Work Phone: WBC (Bld) [#/Vol] 6.7 10*3/uL 4.4-11.0 [facility] Work Phone: Blood erythrocytes count (nu mber/volume)on 09-15-2021 RBC (Bld) [#/Vol] 3.06 10*6/uL 4.2-5.4 [facility] Work Phone: Blood hemoglobin measurement (mass/volume)on 09-15-2021 Hemoglobin (Bld) [Mass/Vol] 9.3 g/dL 12.0-15.0 [facility] Work Phone: Blood lymphocytes/100 leukoc yteson 09-15-2021 Lymphocytes/100 WBC (Bld) 26.3 % 19-41 [facility] Work Phone: Blood monocytes/100 leukocyt eson 09-15-2021 Monocytes/100 WBC (Bld) 6.8 % 0-10 [facility] Work Phone: Blood platelet mean volumeon 09-15-2021 Platelet mean volume (Bld) [Entitic vol] 11.5 fL 6.2-12.0 [facility] Work Phone: Determination of erythrocyte mean corpuscular volume (MCV)on 09-15-2021 MCV (RBC) [Entitic vol] 96.1 fL 81-99 [facility] Work Phone: Direct bilirubinon 2 Bilirubin.direct [Mass/Vol] 0.10 mg/dL 0.00-0.30 [facility] Work Phone: Erythrocyte sedimentation ra emanuel 09-15-2021 ESR (Bld) [Velocity] 65 mm/h 0-30 [facility] Work Phone: Hematocrit Auto (Bld) [Volum e fraction]on 09-15-2021 Hematocrit (Bld) [Volume fraction] 29.4 % 37-47 [facility] Work Phone: INR in Blood by Coagulation assayon 09-15-2021 INR Coag (Bld) [Relative time] 1.6 {INR} [facility] Work Phone: Laboratory - Chemistry and C hemistry - challengeon 09-15-2021 ALP [Catalytic activity/Vol] 85 U/L 45-117 [facility] Work Phone: ALT [Catalytic activity/Vol] 24 U/L 13-56 [facility] Work Phone: CO2 [Moles/Vol] 28.0 mmol/L 21.0-32.0 [facility] Work Phone: [phone] Globulin (S) [Mass/Vol] 3.9 g/dL 2.2-4.2 [facility] Work Phone: [phone] Urea nitrogen/Creatinine [Mass ratio] 28.2 mg/mg 10-20 [facility] Work Phone: [phone] Laboratory - Coagulationon 0 09-15-2021 aPTT Coag (Bld) [Time] 34.1 s 24.1-36.2 [facility] Work Phone: [phone] PT Coag (PPP) [Time] 18.5 s 11.7-14.9 [facility] Work Phone: [phone] Laboratory - Hematology and Cell countson 09-15-2021 Erythrocyte distribution width (RBC) [Entitic vol] 50.2 fL 35.1-43.9 [facility] Work Phone: [phone] Erythrocyte distribution width (RBC) [Ratio] 14.4 % 11.6-14.6 [facility] Work Phone: [phone] Immature granulocytes/100 WBC (Bld) 0.300 % 0.0-0.9 [facility] Work Phone: [phone] Comment on above: IG% - Immature Granu locytes (promyelocytes, myelocytes and metamyelocytes) > 1% indicates that a LEFT SHIFT is Present. MCH (RBC) [Entitic mass] 30.4 pg 27.0-32.0 [facility] Work Phone: [phone] Nucleated RBC/100 WBC (Bld) [Ratio] 0 % 0-5 [facility] Work Phone: [phone] MCHC Auto (RBC) [Mass/Vol]on 09-15-2021 MCHC (RBC) [Mass/Vol] 31.6 g/dL 32-[address] [facility] Work Phone: [phone] Panel Informationon 09-15 Centromere B Antibody <0.2 AI 0.0-0.[address] [facility] Work Phone: [phone] POWDER OPERATOR Antibody <0.2 AI 0.0-0.9 [facility] Work Phone: Ceruloplasmin 28.9 mg/dL 19.0-39.0 [facility] Work Phone: [phone] Estimated GFR (MDRD) Amer 104 mL/min >60 [facility] Work Phone: [phone] Comment on above: GFR Calc Estimated GFR (MDRD) Non-Af Amer 86 mL/min >60 [facility] Work Phone: [phone] Comment on above: Non- GFR Calc Hepatitis A IgM Antibody Negative Negative [facility] Work Phone: [phone] Hepatitis B Core IgM Antibody Negative Negative [facility] Work Phone: [phone] Hepatitis C Antibody (EIA) <0.1 s/co ratio 0.0-0.9 [facility] Work Phone: [phone] Comment on above: Negative: < 0.8 Inde terminate: 0.8 - 0.9 Positive: > 0.9 The CDC recommends that a positive HCV antibody result be followed up with a HCV Nucleic Acid Amplification test (343650).Effective October 03, 2021 Hepatitis Panel (4) will be made non-orderable. [facility] offers order code [id number] Acute Hepatitis. Immunoglobulin E 16 IU/mL 6-495 [facility] Work Phone: Platelets bldon 09-15-2021 Platelets (Bld) [#/Vol] 237 10*3/uL 150-450 [facility] Work Phone: [phone] Serum DNA double strand anti body assay (units/volume)on 09-15-2021 DNA double strand Ab Qn (S) [IU]/mL 0-9 [facility] Work Phone: [phone] Comment on above: Negative <5 Equivoca l 5 - 9 Positive >9 Serum Bina-1 antibody assay (u nits/volume)on 09-15-2021 Bina-1 extractable nuclear Ab Qn (S) <0.2 AI 0.0-0.9 [facility] Work Phone: [phone] Serum Scl-70 extractable nuc lear antibody assay (units/volume)on 09-15-2021 SCL-70 extractable nuclear Ab Qn (S) <0.2 AI 0.0-0.9 [facility] Work Phone: Serum Pemberton extractable nucl ear antibody detectionon 09-15-2021 Pemberton extractable nuclear Ab Ql (S) <0.2 AI 0.0-0.9 [facility] Work Phone: Serum classic neutrophil cyt oplasmic antibody assay (units/volume)on 09-15-2021 Neutrophil cytoplasmic Ab.classic Qn (S) <1:20 titer Neg:<1:20 [facility] Work Phone: Serum mitochondria antibody detectionon 09-15-2021 Mitochondria Ab Ql (S) <20.0 Units 0.0-20.0 [facility] Work Phone: Comment on above: Negative 0.0 - 20.0 Equivocal 20.1 - 24.9 Positive >24.9Mitochondrial (M2) Antibodies are found in 90-96% ofpatients with primary biliary cirrhosis.Performed at: [address] [id number] Director: Eliseo Yañez PhD, Phone: [phone] Serum or plasma C reactive p rotein measurement (mass/volume)on 09-15-2021 CRP [Mass/Vol] 46.00 mg/L 0.0-3.0 [facility] Work Phone: Comment on above: C-Reactive Protein ( CRP) provides useful information for thediagnosis, therapy and monitoring of inflammatory processesand associated diseases. For the evaluation of Relative Riskfor Cardiovascular Disease, a High Sensitivity CRP (HSCRP)should be ordered. Serum or plasma IgA measurem ent (mass/volume)on 09-15-2021 IgA [Mass/Vol] 336 mg/dL 87-352 [facility] Work Phone: Serum or plasma IgG measurem ent (mass/volume)on 09-15-2021 IgG [Mass/Vol] 902 mg/dL [phone] [facility] Work Phone: Serum or plasma IgM measurem ent (mass/volume)on 09-15-2021 IgM [Mass/Vol] 165 mg/dL 26-217 [facility] Work Phone: Comment on above: Performed at: [facility] [address] [id number] Director: Eliseo Yañez PhD, Phone: [phone] at: - [facility] [address] [id number] Director: Azalia Rosen MD, Phone: [phone] Serum or plasma actin IgG an tibody assay (units/volume)on 09-15-2021 Actin IgG Qn 4 Units 0-19 [facility] Work Phone: Comment on above: Negative 0 - 19 Weak positive 20 - 30 Moderate to strong positive >30 Actin Antibodies are found in 52-85% of patients with autoimmune hepatitis or chronic active hepatitis and in 22% of patients with primary biliary cirrhosis. Serum or plasma albumin apddy urement (mass/volume)on 09-15-2021 Albumin [Mass/Vol] 3.7 g/dL 3.2-5.0 [facility] Work Phone: [phone] Serum or plasma albumin/glob ulin mass ratioon 09-15-2021 Albumin/Globulin [Mass ratio] 0.9 {ratio} 0.9-2.4 [facility] Work Phone: [phone] Serum or plasma angiotensin converting enzyme measurement (enzymatic activity/volume)on 09-15-2021 Angiotensin converting enzyme [Catalytic activity/Vol] 33 U/L 14-82 [facility] Work Phone: [phone] Serum or plasma calcium paddy urement (mass/volume)on 09-15-2021 Calcium [Mass/Vol] 9.1 mg/dL 8.5-10.1 [facility] Work Phone: [phone] Serum or plasma creatinine m easurement (mass/volume)on 09-15-2021 Creatinine [Mass/Vol] 0.74 mg/dL 0.55-1.[address] [facility] Work Phone: Comment on above: The validity of the calculated GFR & GFRAA in patients over 70 years has not been determined. Clinical correlation is essential. Serum or plasma hepatitis B virus surface antigen detection by immunoassayon 09-15-2021 HBV surface Ag IA Ql Negative Negative [facility] Work Phone: [phone] Serum or plasma urea nitroge n measurement (mass/volume)on 09-15-2021 Urea nitrogen [Mass/Vol] 21 mg/dL 7-18 [facility] Work Phone: Serum perinuclear neutrophil cytoplasmic antibody titer by immunofluorescenceon 09-15-2021 Neutrophil cytoplasmic Ab.perinuclear IF (S) [Titer] <1:20 titer Neg:<1:20 [facility] Work Phone: Comment on above: The presence of posi tive fluorescence exhibiting P-ANCA orC- ANCA patterns alone is not specific for the diagnosis ofWegener's Granulomatosis (WG) or microscopic polyangiitis.Decisions about treatment should not be based solely onANCA IFA results. The International ANCA Group Consensusrecommends follow up testing of positive sera with both GA-3 and MPO-ANCA enzyme immunoassays. As many as 5% serumsamples are positive only by EIA. Ref. AM J Clin [id number];111:507-513. Thin prep Papanicolaou smear with manual screeningon 09-15-2021 Thin prep Papanicolaou smear with manual screening 16 U/L 15-37 [facility] Work Phone: [phone] Thin prep Papanicolaou smear with manual screening 3 5-15 [facility] Work Phone: [phone] Thin prep Papanicolaou smear with manual screening 153 U/L 84-246 [facility] Work Phone: [phone] Thin prep Papanicolaou smear with manual screening 127 ug/dL 80-158 [facility] Work Phone: [phone] Comment on above: Detection Limit = 5 Absolute lymphocyte counton 08-31-2021 Lymphocytes Auto (Unsp spec) [#/Vol] 2.01 10*3/uL 0.83-4.51 [facility] Work Phone: Basophil percentageon 2021 Basophils/100 WBC (Bld) 0.6 % 0-1 [facility] Work Phone: Chloride [Moles/Vol] 109 mmol/L 98-107 [facility] Work Phone: Eosinophils/100 WBC (Bld) 3.0 % 0-5 [facility] Work Phone: Glucose [Mass/Vol] 116 mg/dL 74-106 [facility] Work Phone: Comment on above: Fasting Glucose resu lt from 100 to 125 mg/dL suggests IMPAIRED HOMEOSTASIS per A.D.A. criteria. Neutrophils (Bld) [#/Vol] 3.5 10*3/uL 2.0-7.7 [facility] Work Phone: Neutrophils/100 WBC (Bld) 54.7 % 47-70 [facility] Work Phone: Potassium [Moles/Vol] 3.7 mmol/L 3.5-5.[address] [facility] Work Phone: Sodium [Moles/Vol] 142 mmol/L 136-145 [facility] Work Phone: WBC (Bld) [#/Vol] 6.4 10*3/uL 4.4-11.0 [facility] Work Phone: Blood erythrocytes count (nu mber/volume)on 08-31-2021 RBC (Bld) [#/Vol] 2.59 10*6/uL 4.2-5.4 [facility] Work Phone: Blood hemoglobin measurement (mass/volume)on 08-31-2021 Hemoglobin (Bld) [Mass/Vol] 7.8 g/dL 12.0-15.0 [facility] Work Phone: Blood lymphocytes/100 leukoc yteson 08-31-2021 Lymphocytes/100 WBC (Bld) 31.2 % 19-41 [facility] Work Phone: Blood monocytes/100 leukocyt eson 08-31-2021 Monocytes/100 WBC (Bld) 9.3 % 0-10 [facility] Work Phone: Blood platelet mean volumeon 08-31-2021 Platelet mean volume (Bld) [Entitic vol] 10.9 fL 6.2-12.0 [facility] Work Phone: [phone] Determination of erythrocyte mean corpuscular volume (MCV)on 08-31-2021 MCV (RBC) [Entitic vol] 96.5 fL 81-99 [facility] Work Phone: [phone] Hematocrit Auto (Bld) [Volum e fraction]on 08-31-2021 Hematocrit (Bld) [Volume fraction] 25.0 % 37-47 [facility] Work Phone: [phone] Laboratory - Chemistry and C hemistry - challengeon 08-31-2021 CO2 [Moles/Vol] 28.0 mmol/L 21.0-32.0 [facility] Work Phone: [phone] Urea nitrogen/Creatinine [Mass ratio] 8.8 mg/mg 10-20 [facility] Work Phone: [phone] Laboratory - Hematology and Cell countson 08-31-2021 Erythrocyte distribution width (RBC) [Entitic vol] 53.5 fL 35.1-43.9 [facility] Work Phone: [phone] Erythrocyte distribution width (RBC) [Ratio] 15.6 % 11.6-14.6 [facility] Work Phone: [phone] Immature granulocytes/100 WBC (Bld) 1.200 % 0.0-0.9 [facility] Work Phone: [phone] Comment on above: IG% - Immature Granu locytes (promyelocytes, myelocytes and metamyelocytes) > 1% indicates that a LEFT SHIFT is Present. MCH (RBC) [Entitic mass] 30.1 pg 27.0-32.0 [facility] Work Phone: [phone] Nucleated RBC/100 WBC (Bld) [Ratio] 0.5 % 0-5 [facility] Work Phone: [phone] MCHC Auto (RBC) [Mass/Vol]on 08-31-2021 MCHC (RBC) [Mass/Vol] 31.2 g/dL 32-36 [facility] Work Phone: No Panel Informationon 08-31 Estimated Creatinine Clearance Calc 106.26 ml/min [facility] Work Phone: Estimated GFR (MDRD) Amer 143 mL/min >60 [facility] Work Phone: Comment on above: GFR Calc Estimated GFR (MDRD) Non-Af Amer 118 mL/min >60 [facility] Work Phone: Comment on above: Non- GFR Calc Platelets bldon 08-31-2021 Platelets (Bld) [#/Vol] 257 10*3/uL 150-450 [facility] Work Phone: Serum or plasma calcium paddy urement (mass/volume)on 08-31-2021 Calcium [Mass/Vol] 8.0 mg/dL 8.5-10.1 [facility] Work Phone: [phone] Serum or plasma creatinine m easurement (mass/volume)on 08-31-2021 Creatinine [Mass/Vol] 0.56 mg/dL 0.55-1.[address] [facility] Work Phone: Comment on above: The validity of the calculated GFR & GFRAA in patients over 70 years has not been determined. Clinical correlation is essential. Serum or plasma urea nitroge n measurement (mass/volume)on 08-31-2021 Urea nitrogen [Mass/Vol] 5 mg/dL 7-18 [facility] Work Phone: Thin prep Papanicolaou smear with manual screeningon 08-31-2021 Thin prep Papanicolaou smear with manual screening 5 5-15 [facility] Work Phone: [phone] Iron measurement (mass/mass) on 08-27-2021 Iron (Unsp spec) [Mass/Mass] 51 ug/dL 50-170 [facility] Work Phone: [phone] Lower GI hemoglobin IA Ql (S tl)on 08-27-2021 Stool Occult Blood (KAELA) Positive [facility] Work Phone: No Panel Informationon 08-27 Total Iron Binding Capacity 283 ug/dL 250-450 [facility] Work Phone: [phone] Troponin I High Sensitivity 5 pg/mL 3.0-54.0 [facility] Work Phone: [phone] Comment on above: Please Note: New Daniella t Units and Gender Specific Reference Ranges. For more information see Policy Stat Procedure [place] High Sensitivity Troponin (TNIH) and attachments. Serum or plasma ferritin phil surement (mass/volume)on 08-27-2021 Ferritin [Mass/Vol] 137 ng/mL 8-252 [facility] Work Phone: [phone] Serum or plasma iron saturat ion measurement (mass fraction)on 08-27-2021 Iron saturation [Mass fraction] 18.0 % 15.0-55.0 [facility] Work Phone: [phone] Basophil percentageon 2021 Lactate [Moles/Vol] 0.6 mmol/L 0.4-2.0 [facility] Work Phone: [phone] Basophil percentage >100 SEEN /hpf [facility] Work Phone: [phone] Bilirubin [Mass/Vol] 0.30 mg/dL 0.20-1.00 [facility] Work Phone: [phone] Comment on above: For patients on eltr ombopag therapy, use of Dimension [place] TBIL is not recommended. Protein [Mass/Vol] 7.6 g/dL 6.4-8.2 [facility] Work Phone: [phone] Bilirubin Test strip Ql (U)o n 08-26-2021 Bilirubin Ql (U) Negative Negative [facility] Work Phone: [phone] Culture, urineon 08-26-2021 Bacteria identified Cx Nom (U) Presumptive E. coli [facility] Work Phone: [phone] Ketones Test strip Ql (U)on 08-26-2021 Ketones Ql (U) Negative Negative [facility] Work Phone: [phone] Laboratory - Chemistry and C hemistry - challengeon 08-26-2021 ALP [Catalytic activity/Vol] 113 U/L 45-117 [facility] Work Phone: ALT [Catalytic activity/Vol] 91 U/L 13-56 [facility] Work Phone: Globulin (S) [Mass/Vol] 4.2 g/dL 2.2-4.2 [facility] Work Phone: Laboratory - Microbiology an d Antimicrobial susceptibilityon 08-26-2021 Bacteria identified Cx Nom (Bld) No growth in 5 days. [facility] Work Phone: Mucus LM Ql (Urine sed)on Mucus Ql (Urine sed) 0 SEEN /hpf [facility] Work Phone: Nitrite Test strip Ql (U)on 08-26-2021 Nitrite Ql (U) Positive Negative [facility] Work Phone: [phone] Protein Test strip Ql (U)on 08-26-2021 Protein Ql (U) 30 mg/dl Negative [facility] Work Phone: Serum or plasma albumin paddy urement (mass/volume)on 08-26-2021 Albumin [Mass/Vol] 3.4 g/dL 3.2-5.0 [facility] Work Phone: [phone] Serum or plasma albumin/glob ulin mass ratioon 08-26-2021 Albumin/Globulin [Mass ratio] 0.8 {ratio} 0.9-2.4 [facility] Work Phone: Squamous epithelial cells de tection in urine sediment by light microscopyon 08-26-2021 Epithelial cells.squamous LM Ql (Urine sed) 0 SEEN /hpf [facility] Work Phone: Thin prep Papanicolaou smear with manual screeningon 08-26-2021 Thin prep Papanicolaou smear with manual screening 72 U/L 15-37 [facility] Work Phone: Urine blood detectionon RBC Ql (U) 25 /ul Negative [facility] Work Phone: RBC Ql (U) 0-5 SEEN /hpf [facility] Work Phone: Urine clarityon 08-26-2021 Clarity (U) Cloudy Clear [facility] Work Phone: Urine color determinationon 08-26-2021 Color (U) Yellow Yellow [facility] Work Phone: Urine glucose detectionon Glucose Ql (U) Normal mg/dl Normal [facility] Work Phone: Urine leukocyte esterase det ection by dipstickon 08-26-2021 Leukocyte esterase Test strip Ql (U) 500 /ul Negative [facility] Work Phone: Urine pHon 08-26-2021 pH (U) 5.0 [pH] [facility] Work Phone: Urine sediment bacteria coun t by microscopy (number/high power field)on 08-26-2021 Bacteria LM.HPF (Urine sed) [#/Area] 4 /[HPF] None Seen [facility] Work Phone: Urine specific gravity measu rementon 08-26-2021 Specific gravity (U) [Rel density] 1.020 [facility] Work Phone: Urobilinogen Auto test strip Ql (U)on 08-26-2021 Urobilinogen Ql (U) Normal mg/dl Normal [facility] Work Phone: No Panel Informationon 08-25 SARS-CoV-2 Antigen (Rapid) [facility] Work Phone: Absolute lymphocyte counton 08-18-2021 Lymphocytes Auto (Unsp spec) [#/Vol] 2.20 10*3/uL 0.83-4.51 [facility] Work Phone: Basophil percentageon 2021 Basophils/100 WBC (Bld) 0.8 % 0-1 [facility] Work Phone: Chloride [Moles/Vol] 103 mmol/L 98-107 [facility] Work Phone: Eosinophils/100 WBC (Bld) 2.9 % 0-5 [facility] Work Phone: Glucose [Mass/Vol] 113 mg/dL 74-106 [facility] Work Phone: Comment on above: Fasting Glucose resu lt from 100 to 125 mg/dL suggests IMPAIRED HOMEOSTASIS per A.D.A. criteria. Neutrophils (Bld) [#/Vol] 4.6 10*3/uL 2.0-7.7 [facility] Work Phone: Neutrophils/100 WBC (Bld) 60.4 % 47-70 [facility] Work Phone: Potassium [Moles/Vol] 4.3 mmol/L 3.5-5.1 [facility] Work Phone: Sodium [Moles/Vol] 140 mmol/L 136-145 [facility] Work Phone: WBC (Bld) [#/Vol] 7.6 10*3/uL 4.4-11.0 [facility] Work Phone: Blood erythrocytes count (nu mber/volume)on 08-18-2021 RBC (Bld) [#/Vol] 3.60 10*6/uL 4.2-5.4 [facility] Work Phone: Blood hemoglobin measurement (mass/volume)on 08-18-2021 Hemoglobin (Bld) [Mass/Vol] 10.5 g/dL 12.0-15.0 [facility] Work Phone: Blood lymphocytes/100 leukoc yteson 08-18-2021 Lymphocytes/100 WBC (Bld) 29.1 % 19-41 [facility] Work Phone: Blood monocytes/100 leukocyt eson 08-18-2021 Monocytes/100 WBC (Bld) 6.5 % 0-10 [facility] Work Phone: Blood platelet mean volumeon 08-18-2021 Platelet mean volume (Bld) [Entitic vol] 10.8 fL 6.2-12.0 [facility] Work Phone: Determination of erythrocyte mean corpuscular volume (MCV)on 08-18-2021 MCV (RBC) [Entitic vol] 95.6 fL 81-99 [facility] Work Phone: [phone] Hematocrit Auto (Bld) [Volum e fraction]on 08-18-2021 Hematocrit (Bld) [Volume fraction] 34.4 % 37-47 [facility] Work Phone: INR in Blood by Coagulation assayon 08-18-2021 INR Coag (Bld) [Relative time] 2.1 {INR} [facility] Work Phone: [phone] Laboratory - Chemistry and C hemistry - challengeon 08-18-2021 CO2 [Moles/Vol] 31.0 mmol/L 21.0-32.0 [facility] Work Phone: [phone] Urea nitrogen/Creatinine [Mass ratio] 19.3 mg/mg 10-20 [facility] Work Phone: Laboratory - Coagulationon 0 08-18-2021 aPTT Coag (Bld) [Time] 48.1 s 24.1-36.2 [facility] Work Phone: [phone] PT Coag (PPP) [Time] 22.5 s 11.7-14.9 [facility] Work Phone: [phone] Laboratory - Hematology and Cell countson 08-18-2021 Erythrocyte distribution width (RBC) [Entitic vol] 49.5 fL 35.1-43.9 [facility] Work Phone: [phone] Erythrocyte distribution width (RBC) [Ratio] 14.2 % 11.6-14.6 [facility] Work Phone: [phone] Immature granulocytes/100 WBC (Bld) 0.300 % 0.0-0.9 [facility] Work Phone: Comment on above: IG% - Immature Granu locytes (promyelocytes, myelocytes and metamyelocytes) > 1% indicates that a LEFT SHIFT is Present. MCH (RBC) [Entitic mass] 29.2 pg 27.0-32.0 [facility] Work Phone: Nucleated RBC/100 WBC (Bld) [Ratio] 0 % 0-5 [facility] Work Phone: MCHC Auto (RBC) [Mass/Vol]on 08-18-2021 MCHC (RBC) [Mass/Vol] 30.5 g/dL 32-[address] [facility] Work Phone: No Panel Informationon 08-18 Estimated Creatinine Clearance Calc 76.29 ml/min [facility] Work Phone: [phone] Estimated GFR (MDRD) Amer 99 mL/min >60 [facility] Work Phone: [phone] Comment on above: GFR Calc Estimated GFR (MDRD) Non-Af Amer 82 mL/min >60 [facility] Work Phone: Comment on above: Non- GFR Calc Platelets bldon 08-18-2021 Platelets (Bld) [#/Vol] 305 10*3/uL 150-450 [facility] Work Phone: Serum or plasma calcium paddy urement (mass/volume)on 08-18-2021 Calcium [Mass/Vol] 9.2 mg/dL 8.5-10.1 [facility] Work Phone: Serum or plasma creatinine m easurement (mass/volume)on 08-18-2021 Creatinine [Mass/Vol] 0.78 mg/dL 0.55-1.[address] [facility] Work Phone: Comment on above: The validity of the calculated GFR & GFRAA in patients over 70 years has not been determined. Clinical correlation is essential. Serum or plasma urea nitroge n measurement (mass/volume)on 08-18-2021 Urea nitrogen [Mass/Vol] 15 mg/dL 7-18 [facility] Work Phone: [phone] Thin prep Papanicolaou smear with manual screeningon 08-18-2021 Thin prep Papanicolaou smear with manual screening 6 5-15 [facility] Work Phone: [phone] [facility]Z DIAGNOST[facility] LTon 02-25-20 21 [facility] * * *Final Report* * * * * * SEE BOTTOM OF REPORT FOR ADDENDED TEXT * * * DATE OF EXAM: Feb 24 2021 8:36AM AAW 0621 - [facility] / PROCEDURE REASON: Abnormal ultrasound of breast * * * * Physician Interpretation * * * * FINAL REPORT #[id number] - [facility] US BIOPSY BREAST LT #[id number] - [facility] DIAGNOSTIC LT ULTRASOUND GUIDED BIOPSY LEFT BREAST [...] undergo the procedure. Dr. Decker and a radiographer technologist were present throughout the entire procedure. Audible Time Out Time: 913 Procedure Start Time: 914 Procedure Stop Time: 919 Dr. Decker performed the entire procedure without an speech correction assistant. PROCEDURE: Correlation is made to exams dated: 01/04/2021 ultrasound and 01/04/2021 mammogram - [facility]. An ultrasound guided biopsy using real-time ultrasound [...] results and surgical management. Stephanie dai/jessica:02/25/2021 16:08:46 Workers Compensation Administrator(s): Lima Cunningham R.D.M.S., [employer]; RT Cathryn(R)(M), [employer] Multiple national specialty organizations have released breast cancer screening guidelines for women at average risk for developing breast cancer - guidelines that are based on both evidence and opinion, yet differ on when to start and how often to screen for breast cancer. With representation from Breast Imaging, Internal Medicine, Women's Health, Family Medicine, and Medical/Surgical Oncology, the [facility] has carefully reviewed the data and [...] their providers when to stop screening mammograms. Paper Machine Supervisor: Jessica Transcribe Date/Time: Feb 24 2021 8:36A Dictated by : STEPHANIE DECKER MD This examination was interpreted and the report reviewed and electronically signed by: STEPHANIE DECKER MD on Feb 24 2021 9:57AM EST This document has been addended by: STEPHANIE DECKER MD on Feb 25 2021 4:08PM EST [id number] Normal [facility] US BIOPSY BREAST LTon [facility] US BIOPSY BREAST LT * * *Final Report* * * * * * SEE BOTTOM OF REPORT FOR ADDENDED TEXT * * * DATE OF EXAM: Feb 24 2021 9:34AM AAW 0597 - [facility] US BIOPSY BREAST LT / PROCEDURE REASON: Abnormal ultrasound of breast * * * * Physician Interpretation * * * * FINAL REPORT #[id number] - [facility] US BIOPSY BREAST LT #[id number] - [facility] DIAGNOSTIC LT ULTRASOUND GUIDED BIOPSY LEFT BREAST [...] undergo the procedure. Dr. Decker and a radiographer technologist were present throughout the entire procedure. Audible Time Out Time: 913 Procedure Start Time: 914 Procedure Stop Time: 919 Dr. Decker performed the entire procedure without an speech correction assistant. PROCEDURE: Correlation is made to exams dated: 01/04/2021 ultrasound and 01/04/2021 mammogram - [facility]. An ultrasound guided biopsy using real-time ultrasound [...] results and surgical management. Stephanie dai/jessica:02/25/2021 16:08:46 Workers Compensation Administrator(s): Lima Cunningham R.D.M.S., [facility]; RT Cathryn(R)(M), [facility] Multiple national specialty organizations have released breast cancer screening guidelines for women at average risk for developing breast cancer - guidelines that are based on both evidence and opinion, yet differ on when to start and how often to screen for breast cancer. With representation from Breast Imaging, Internal Medicine, Women's Health, Family Medicine, and Medical/Surgical Oncology, the [facility] has carefully reviewed the data and [...] their providers when to stop screening mammograms. Paper Machine Supervisor: Jessica Transcribe Date/Time: Feb 24 2021 8:36A Dictated by : STEPHANIE DECKER MD This examination was interpreted and the report reviewed and electronically signed by: STEPHANIE DECKER MD on Feb 24 2021 9:57AM EST This document has been addended by: STEPHANIE DECKER MD on Feb 25 2021 4:08PM EST [id number] Normal [facility] SURGICAL PATHOLOGYon 021 CASE REPORT Normal [facility] Comment on above: Order Comment: Speci men Type: TISSUE SPECIMEN Result Comment: Surg ical Pathology Report Case: [id number] Authorizing Provider: Stephanie Decker MD Collected: 02/24/2021 09:17 AM Ordering Location: [facility] Received: 02/24/2021 01:55 PM [facility] Pathologist: Noé Casillas MD Specimen: BREAST CORE BIOPSY LEFT, 7:00 subareolar region Performed By: #### S #### [facility] CLIA [id number] [address] CLINICAL HISTORY Low suspicion oval mass Normal [facility] Comment on above: Order Comment: Speci men Type: TISSUE SPECIMEN Performed By: #### S #### [facility] CLIA [id number] [address] DIAGNOSIS COMMENT Normal [facility] Comment on above: Order Comment: Speci men Type: TISSUE SPECIMEN Result Comment: The case was reviewed by Dr. Ge Chen who agrees with the diagnosis. Performed By: #### S #### [facility] CLIA [id number] [address] FINAL DIAGNOSIS Normal [facility] Comment on above: Order Comment: Speci men Type: TISSUE SPECIMEN Result Comment: [address], left, 7:00 subareolar region, ribbon clip, biopsy - Benign fragments of intraductal papilloma (see comment). Performed By: #### S #### [facility] CLIA [id number] [address] FINAL PERFORMING LAB Normal [facility] Comment on above: Order Comment: Speci men Type: TISSUE SPECIMEN Result Comment: Diag nostic interpretation performed at [facility], [address] [place] [address] CLIA# [id number] [employer] Consultant: Ge Chen M.D. Performed By: #### S #### [facility] CLIA [id number] [address] GROSS DESCRIPTION Normal [facility] Comment on above: Order Comment: Speci [...] the same day. Gross examination performed at [facility], [address] February 24, 2021 2:19 PM Performed By: #### S #### [facility] CLIA [id number] [address] CNPNon 12-16-2020 CNPN Telephone ([id number]) FELISHA PERRIN ([id number]) 1965 F Date Time Provider Department 12/16/20 [...] hyperlipidemia [E78.2] 11/17/2016 Pulmonary hypertension, secondary (HCC) [IEM762*11/17/2016 History of DVT of lower extremity [Z86.718] 12/28/2016 Colonic mass [K63.89] 03/02/2017 09/26/2017 Obesity, Class III, BMI >= 40 [E66.01] 01/01/2018 Restrictive lung disease secondary to obesity [*03/11/2018 Anemia [D64.9] 05/15/2018 Acquired renal cyst [N28.1] 09/03/2018 Essential hypertension [I10] 10/08/2018 Encounter Status:Closed by LATISHA RILEY on 12/16/20 [facility] Office Visit: Rodriguez 05-09-20 Dietary management education, guidance, and counseling (procedure) yes Invalid Interpretation Code [facility] Work Phone: Documentation of current medications (procedure) Done Invalid Interpretation Code [facility] Work Phone: Protein mass conc Done Invalid Interpretation Code [facility] Work Phone: Protein mass conc yes Invalid Interpretation Code [facility] Work Phone: Smoking cessation education (procedure) yes Invalid Interpretation Code [facility] Work Phone: Tobacco smoking status NHIS Never [...] yes Invalid Interpretation Code [facility] Work Phone: Documentation of current medications (procedure) Done Invalid Interpretation Code [facility] Work Phone: Protein mass conc Done [facility] Work Phone: Tobacco smoking status NHIS Never [facility] Work Phone: Tobacco smoking status NHIS Current every day smoker [facility] Work Phone: Tobacco use [facility] Current every day smoker Invali d Interpretation Code [facility] Work Phone: ANES Reyna 03-14-2017 ANES POST HNO ID: [id number] thor: Stephen WaddellService: AnesthesiologyAuthor Type: AnesthesiologistType: Anesthesia [...] 14, 2017 : 2:46 PM PAGER/CONTACT #: [phone] [facility] PREOPon 03-14-2017 ANE PREOP HNO ID: [id number] thor: Stephen WaddellService: AnesthesiologyAuthor Type: AnesthesiologistType: Anesthesia [...] Bmi of 45.0-49.9, Adult (Hcc)Pulmonary Hypertension, Secondary ([facility])History of Dvt of Lower ExtremityMass of colon on CT scanColonic [facility] MEDICAL HISTORYDiagnosis Date- Amaurosis fugax 04/03/2012- Anxiety- [...] sprain 09/16/2015- Smoker 1 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 Per [facility] PS[facility]CHI[facility]ST.mometasone (ELOCON) 0.1 % cream Apply 1 application to affected area oncedaily as needed (facial rash. Avoid eyes, nose, mouth.).XARELTO 20 mg tablet TAKE 1 TABLET BY MOUTH ONCE DAILY WITH SUPPERCOMPOUNDED PRESCRIPTION OXYGEN 2 LPM VIA NASAL CANNULA.Current Facility-Administered Medications:NaCl 0.9% iv infusion 30 mL/hr INTRAVENOUS CONTINUOUS Julian RothmananAllergies:ALLERGIESA llergen Reactions- Aspirin Swelling- Demerol [Meperidine*- Fish Swelling- Onion Anaphylaxis- Roane Anaphylaxis- Peanut Anaphylaxis- Penicillins- Shellfish Anaphylaxis- Toradol [...] March 14, 2017 : 10:26 AM CSN: [id number] [facility] NURSING PROGon 03-13-2017 NURSING PROG HNO ID: [id number] thor: Cathy (Rn) LAINE Krauseervice: (none)Author Type: Registered NurseType: Nursing Progress NoteFiled: 03/13/2017 1:44 PMNote Text:H and P 03/02/17 by Geoff Hopkisn CNP. Labs 01/27/17 cbc/diff- hgb 11.7,hct36.4. Ekg [...] calledtoday- if not contacted by 3pm- given [facility] to call for time.Transportation post op per [facility],per pt. Pt verfied that she stoppedXarelto 2 days (last dose 03/11/17) prior to surgery per instructions. Ptstates no issues with anesthesia. Chart check complete PAT Leone Normal [facility] HOSPon 03-02-2017 HOSP Patient:Felisha Perrin MRN: Height:5' [...] days for the following basenames: K,HCTProgress Notes ([facility]):Theodora Christianson Pharm-T 03/07/2017 3:06 PM SignedPharmacist Refill Authorization ReviewName: Felisha Summers [facility]: [id number]: 03/07/2017Time: 3:06 PMRefill authorization request(s) received via [...] mouth twice daily as neededfor Anxiety. Per [facility].COMPOUNDED PRESCRIPTION OXYGEN 2 LPM VIA NASAL CANNULA.No current facility-administered medications for this visit.Progress Notes ([facility] CR):Abbi Landa LPN 03/02/2017 11:09 AM SignedSpoke with Librado and [facility]. Patient will be notified with [facility] date and time. 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 Left ventricular Ejection fraction 65 % Invalid Interpretation Code [employer] Phone: [phone] Tobacco use [facility] Former smoker Invalid Interpretation Code [employer] Phone: Office Visiton 01-18-2017 Dietary management education, guidance, and counseling (procedure) yes Invalid Interpretation Code [facility] Phone: Documentation of current medications (procedure) Done Invalid Interpretation Code [facility] Phone: Fall risk assessment No Invalid Interpretation Code [facility] Phone: Protein mass conc Done [employer] Phone: [phone] Tobacco smoking status NHIS Former smoker [employer] Phone: [phone] Tobacco use [facility] Former smoker Invalid Interpretation Code [facility] Phone: Replaced Document: Kelby Maguire 01-18-2017 EKG QRS axis -6 deg Invalid Interpretation Code [facility] Work Phone: electrocardiogram interpretation Sinus Rhythm WITHIN NORMAL LIMITS Invalid Interpretation Code [facility] Phone: GE use only - for [employer] import when terms are not otherwise specified 434 ms Invalid Interpretation Code [facility] Phone: Interpretation Sinus Rhythm WITHIN NORMAL LIMITS Invalid Interpretation Code [facility] Work Phone: P [place] 29 deg Invalid Interpretation Code [facility] Work Phone: P wave axis, electrocardiogram 29 deg Invalid Interpretation Code [facility] Phone: GA Interval 166 ms Invalid Interpretation Code [facility] Phone: GA interval, electrocardiogram 166 ms Invalid Interpretation Code [facility] Phone: Pulse (Heart Rate) 82 /min Invalid Interpretation Code [facility] Phone: QRS axis, electrocardiogram -6 deg Invalid Interpretation Code [facility] Phone: QRS Duration 100 ms Invalid Interpretation Code [facility] Phone: QRS duration, electrocardiogram 100 ms Invalid Interpretation Code [facility] Phone: QT Interval new path ms Invalid Interpretation Code [facility] Work Phone: QT interval, electrocardiogram new path ms Invalid Interpretation Code [facility] Phone: [phone] QTc Gutiérrez 434 ms Invalid Interpretation Code [facility] Work Phone: T [place] 13 deg Invalid Interpretation Code [facility] Work Phone: T wave axis, electrocardiogram 13 deg Invalid Interpretation Code [facility] Phone: Office Visit: STEPHANIE & COPDon 0 01-02-2017 Documentation of current medications (procedure) Done Invalid Interpretation Code [facility] Phone: Protein mass conc Done [facility] Work Phone: Tobacco smoking status NHIS Never Invalid Interpretation Code [facility] Work Phone: Tobacco smoking status NHIS Former smoker [facility] Work Phone: Tobacco use [facility] Former smoker Invalid Interpretation Code [facility] Work Phone: Office Visit: hosp f/uon Protein mass conc Done [facility] Work Phone: Tobacco smoking status NHIS Never [facility] Work Phone: Tobacco smoking status NHIS Former smoker [facility] Work Phone: Clinical Lists Update: 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 Anion gap 24 mmol/L High [facility] Work Phone: Anion gap 4 molar conc 24 High [facility] Work Phone: Anion gap molar conc 24 mmol/L High [facility] Work Phone: Calcium mass conc 9.9 mg/dL Invalid Interpretation Code [facility] Work Phone: [phone] Chloride molar conc 98 mmol/L Invalid Interpretation Code [facility] Work Phone: Cholesterol in HDL mass conc 65 mg/dL Invalid Interpretation Code [facility] Work Phone: Cholesterol in LDL mass conc 156 mg/dL High [facility] Work Phone: Cholesterol in LDL/Cholesterol [...] mmol/L Low [facility] Work Phone: [phone] Creatinine mass conc 0.70 mg/dL Invalid Interpretation Code [facility] Work Phone: [phone] Glucose 121 mg/dL High [facility] Work Phone: [phone] Glucose mass conc 121 mg/dL High [facility] Work Phone: [phone] Lipoprotein.pre-beta mass conc 35 mg/dL Invalid Interpretation Code [facility] Work Phone: [phone] Potassium molar conc 4.1 mmol/L Invalid Interpretation Code [facility] Work Phone: [phone] Sodium molar conc 143 mmol/L Invalid Interpretation Code [facility] Work Phone: [phone] Thyrotropin Qn 1.410 u[iU]/mL Invalid Interpretation Code [facility] Work Phone: [phone] Triglyceride mass conc 175 mg/dL High [facility] Work Phone: [phone] Urea nitrogen mass conc 7 mg/dL Low [facility] Work Phone: [phone] Culture, urine Bacteria identified Cx Nom (U) Escherichia coli [facility] Work Phone: [phone] Bacteria identified Cx Nom (U) Streptococcus agalactiae (B) [facility] Work Phone: [phone] Bacteria identified Cx Nom (U) Positive [facility] Work Phone: [phone] Laboratory - Microbiology an d Antimicrobial susceptibility Bacteria identified Cx Nom (Bld) No growth in 5 days. [facility] Work Phone: [phone] No Panel Information SARS-CoV-2 & FLU Antigen (Rapid) [facility] Work Phone: [phone] Vital Signs Date Time Vital Sign Value Performing Clinician Facility 01-08-2025 08:34-0400 Body height 167.[address] Ysabel Ruffin MD Work Phone: [facility] 01-08-2025 08:34-0400 Body mass index (BMI) [Ratio] 47.4 kg/m2 Dr. Ysabel Ruffin MD Work Phone: [facility] 01-08-2025 08:34-0400 Body temperature 98.2 [degF] Dr. Ysabel Ruffin MD Work Phone: [facility] 01-08-2025 08:34-0400 Body weight 133.[address] Ysabel Ruffin MD Work Phone: [facility] 01-08-2025 08:34-0400 Diastolic blood pressure 72 mm[Hg] Dr. Ysabel Ruffin MD Work Phone: [facility] 01-08-2025 08:34-0400 Heart rate 72 /min Dr. Ysabel Ruffin MD Work Phone: [facility] 01-08-2025 08:34-0400 Respiratory rate 15 /min Dr. Ysabel Ruffin MD Work Phone: [facility] 01-08-2025 08:34-0400 SaO2% (BldA) [Mass fraction] 98 % Dr. Ysabel Ruffin MD Work Phone: [facility] 01-08-2025 08:34-0400 Systolic blood pressure 108 mm[Hg] Dr. Ysabel Ruffin MD Work Phone: [facility] 12-29-2024 09:11-0400 Body height 167.[address] Ysabel Ruffin MD Work Phone: [facility] 12-29-2024 09:11-0400 Body mass index (BMI) [Ratio] 47.4 kg/m2 Dr. Ysabel Ruffin MD Work Phone: [facility] 12-29-2024 09:11-0400 Body temperature 97.1 [degF] Dr. Ysabel Ruffin MD Work Phone: [facility] 12-29-2024 09:11-0400 Body weight 133.[address] Ysabel Ruffin MD Work Phone: [facility] 12-29-2024 09:11-0400 Diastolic blood pressure 76 mm[Hg] Dr. Ysabel Ruffin MD Work Phone: [facility] 12-29-2024 09:11-0400 Heart rate 78 /min Dr. Ysabel Ruffin MD Work Phone: [facility] 12-29-2024 09:11-0400 Inhaled oxygen flow rate 3 L/min Dr. Ysabel Ruffin MD Work Phone: [facility] 12-29-2024 09:11-0400 Respiratory rate 16 /min Dr. Ysabel Rfufin MD Work Phone: [facility] 12-29-2024 09:11-0400 SaO2% (BldA) [Mass fraction] 94 % Dr. Ysabel Ruffin MD Work Phone: [facility] 12-29-2024 09:11-0400 Systolic blood pressure 106 mm[Hg] Dr. Ysabel Ruffin MD Work Phone: [facility] 11-20-2024 11:48-0400 Body temperature 98.4 [degF] Dr. Ysabel Ruffin MD Work Phone: [facility] 11-20-2024 11:48-0400 Diastolic blood pressure 77 mm[Hg] Dr. Ysabel Ruffin MD Work Phone: [facility] 11-20-2024 11:48-0400 Heart rate 81 /min Dr. Ysabel Ruffin MD Work Phone: [facility] 11-20-2024 11:48-0400 Respiratory rate 18 /min Dr. Ysabel Ruffin MD Work Phone: [facility] 11-20-2024 11:48-0400 SaO2% (BldA) [Mass fraction] 94 % Dr. Ysabel Ruffin MD Work Phone: [facility] 11-20-2024 11:48-0400 Systolic blood pressure 126 mm[Hg] Dr. Ysabel Ruffin MD Work Phone: [facility] 11-20-2024 10:48-0400 Body height 167.[address] Ysabel Ruffin MD Work Phone: [facility] 11-20-2024 10:48-0400 Inhaled oxygen flow rate 3 L/min Dr. Ysabel Ruffin MD Work Phone: [facility] 11-14-2024 07:36-0400 Body temperature 97.4 [degF] Dr. Ysabel Ruffin MD Work Phone: [facility] 11-14-2024 07:36-0400 Diastolic blood pressure 58 mm[Hg] Dr. Ysabel Ruffin MD Work Phone: [facility] 11-14-2024 07:36-0400 Heart rate 108 /min Dr. Ysabel Ruffin MD Work Phone: [facility] 11-14-2024 07:36-0400 Inhaled oxygen flow rate 3 L/min Dr. Ysabel Ruffin MD Work Phone: [facility] 11-14-2024 07:36-0400 Respiratory rate 18 /min Dr. Ysabel Ruffin MD Work Phone: [facility] 11-14-2024 07:36-0400 SaO2% (BldA) [Mass fraction] 97 % Dr. Ysabel Ruffin MD Work Phone: [facility] 11-14-2024 07:36-0400 Systolic blood pressure 114 mm[Hg] Dr. Ysabel Ruffin MD Work Phone: [facility] 08-28-2024 15:25-0500 Body mass index (BMI) [Ratio] 41.9 kg/m2 Dr. Ysabel Ruffin MD Work Phone: [facility] 08-28-2024 15:25-0500 Body temperature 96.5 [degF] Dr. Ysabel Ruffin MD Work Phone: [facility] 08-28-2024 15:25-0500 Body weight 117.[address] Ysabel Ruffin MD Work Phone: [facility] 08-28-2024 15:25-0500 Diastolic blood pressure 78 mm[Hg] Dr. Ysabel Ruffin MD Work Phone: [facility] 08-28-2024 15:25-0500 Heart rate 75 /min Dr. Ysabel Ruffin MD Work Phone: [facility] 08-28-2024 15:25-0500 Respiratory rate 18 /min Dr. Ysabel Ruffin MD Work Phone: [facility] 08-28-2024 15:25-0500 SaO2% (BldA) [Mass fraction] 99 % Dr. Ysabel Ruffin MD Work Phone: [facility] 08-28-2024 15:25-0500 Systolic blood pressure 118 mm[Hg] Dr. Ysabel Ruffin MD Work Phone: [facility] 08-15-2024 16:18-0500 Body temperature 98.2 [degF] Dr. Ysabel Ruffin MD Work Phone: [facility] 08-15-2024 16:18-0500 Diastolic blood pressure 70 mm[Hg] Dr. Ysabel Ruffin MD Work Phone: [facility] 08-15-2024 16:18-0500 Heart rate 61 /min Dr. Ysabel Ruffin MD Work Phone: [facility] 08-15-2024 16:18-0500 Inhaled oxygen flow rate 2 L/min Dr. Ysabel Ruffin MD Work Phone: [facility] 08-15-2024 16:18-0500 Respiratory rate 18 /min Dr. Ysabel Ruffin MD Work Phone: [facility] 08-15-2024 16:18-0500 SaO2% (BldA) [Mass fraction] 99 % Dr. Ysabel Ruffin MD Work Phone: [facility] 08-15-2024 16:18-0500 Systolic blood pressure 111 mm[Hg] Dr. Ysabel Ruffin MD Work Phone: [facility] 08-15-2024 05:41-0500 Body mass index (BMI) [Ratio] 46.6 kg/m2 Dr. Ysabel Ruffin MD Work Phone: [facility] 08-15-2024 05:41-0500 Body weight [address] Ysabel Ruffin MD Work Phone: [facility] 08-15-2024 00:10-0500 Inhaled oxygen concentration 30 % Dr. Ysabel Ruffin MD Work Phone: [facility] 07-02-2023 23:45-0500 Diastolic blood pressure 60 mm[Hg[facility] 23:45-0500 Heart rate 68 /min [facility]. Hunt [facility] 07-02-2023 23:45-0500 Respiratory rate 18 /min Dr. Hunt [facility] 07-02-2023 23:45-0500 SaO2% (BldA) [Mass fraction] 96 % Dr. Hunt [facility] 07-02-2023 23:45-0500 Systolic blood pressure 122 mm[Hg[facility] 20:05-0500 Body height 167.[address] [facility] 20:05-0500 Body mass index (BMI) [Ratio] 42.7 kg/m2 [facility] 20:05-0500 Body temperature [facility].5 [facility]degF[facility] 20:05-0500 Body weight 120.[address] [facility] 20:05-0500 Inhaled oxygen flow rate 3 L/min Dr. Marilee Yu [facility] 07-02-2023 14:46-0500 Body mass index (BMI) [Ratio] 46.3 kg/m2 Dr. Marilee Yu [facility] 07-02-2023 14:46-0500 Body temperature 98 [degF] Dr. Marilee Yu [facility] 07-02-2023 14:46-0500 Body weight 130.[address] Marilee Yu [facility] 07-02-2023 14:46-0500 Diastolic blood pressure 70 mm[Hg] Dr. Marilee Yu [facility] 07-02-2023 14:46-0500 Heart rate 82 /[facility]-02-2023 14:46-0500 Respiratory rate 16 /[facility] 14:46-0500 SaO2% (BldA) [Mass fraction] 97 % Dr. Hunt [facility] 07-02-2023 14:46-0500 Systolic blood pressure 112 mm[Hg] Dr. Marilee Yu [facility] 02-08-2023 00:14-0400 Diastolic blood pressure 71 mm[Hg] [facility] 02-08-2023 00:14-0400 Heart rate 70 /min [facility] 02-08-2023 00:14-0400 Respiratory rate 14 /min [facility] 02-08-2023 00:14-0400 SaO2% (BldA) [Mass fraction] 100 % [facility] 02-08-2023 00:14-0400 Systolic blood pressure 133 mm[Hg] [facility] 02-07-2023 22:10-0400 Inhaled oxygen flow rate 3 L/min [facility] 02-07-2023 22:06-0400 Body height 167.64 cm [facility] 02-07-2023 22:06-0400 Body mass index (BMI) [Ratio] 43.6 kg/m2 [facility] 02-07-2023 22:06-0400 Body temperature 96.5 [degF] [facility] 02-07-2023 22:06-0400 Body weight 122.7 kg [facility] 06-06-2022 14:11-0500 Heart rate 62 /min Dr. Alvarez Montanez Work Phone: [facility] Work Phone: 06-06-2022 14:11-0500 Respiratory rate 18 /min Dr. Alvarez Montanez Work Phone: [facility] Work Phone: 06-06-2022 14:00-0500 Body temperature 97.5 [degF] Dr. Alvarez Montanez Work Phone: [facility] Work Phone: 06-06-2022 14:00-0500 Diastolic blood pressure 68 mm[Hg] Dr. Alvarez Montanez Work Phone: [facility] Work Phone: 06-06-2022 14:00-0500 Heart rate 50 /min Dr. Alvarez Montanez Work Phone: [facility] Work Phone: 06-06-2022 14:00-0500 Respiratory rate 13 /min Dr. Alvarez Montanez Work Phone: [facility] Work Phone: 06-06-2022 14:00-0500 SaO2% (BldA) [Mass fraction] 100 % Dr. Alvarez Montanez Work Phone: [facility] Work Phone: 06-06-2022 14:00-0500 Systolic blood pressure 98 mm[Hg] Dr. Alvarez Montanez Work Phone: [facility] Work Phone: 06-06-2022 13:47-0500 Body temperature 97.6 [degF] Dr. Alvarez Montanez Work Phone: [facility] Work Phone: 06-06-2022 13:47-0500 Diastolic blood pressure 59 mm[Hg] Dr. Alvarez Montanez Work Phone: [facility] Work Phone: 06-06-2022 13:47-0500 Inhaled oxygen flow rate 2 L/min Dr. Alvarez Montanez Work Phone: [facility] Work Phone: 06-06-2022 13:47-0500 SaO2% (BldA) [Mass fraction] 98 % Dr. Alvarez Montanez Work Phone: [facility] Work Phone: 06-06-2022 13:47-0500 Systolic blood pressure 96 mm[Hg] Dr. Alvarez Montanez Work Phone: [facility] Work Phone: 06-06-2022 13:13-0500 Body height 167.[address] Alvarez Montanez Work Phone: [facility] Work Phone: 06-06-2022 13:13-0500 Body weight 116.[address] Alvarez Montanez Work Phone: [facility] Work Phone: 06-06-2022 02:57-0500 Body mass index (BMI) [Ratio] 41.4 kg/m2 Dr. Alvarez Montanez Work Phone: [facility] Work Phone: 06-06-2022 00:08-0500 Inhaled oxygen flow rate 2 L/min Dr. Alvarez Montanez Work Phone: [facility] Work Phone: 06-05-2022 20:06-0500 Body height 167.[address] Alvarez Montanez Work Phone: [facility] Work Phone: 06-05-2022 20:06-0500 Body mass index (BMI) [Ratio] 24.2 kg/m2 Dr. Alvarez Montanez Work Phone: [facility] Work Phone: 06-05-2022 20:06-0500 Body weight 68.[address] Alvarez Montanez Work Phone: [facility] Work Phone: 06-05-2022 15:00-0500 Body temperature 96 [degF] Dr. Alvarez Montanez Work Phone: [facility] Work Phone: 06-05-2022 15:00-0500 Body weight 114.[address] Alvarez Montanez Work Phone: [facility] Work Phone: 06-05-2022 15:00-0500 Diastolic blood pressure 78 mm[Hg] Dr. Alvarez Montanez Work Phone: [facility] Work Phone: 06-05-2022 15:00-0500 Heart rate 75 /min Dr. Alvarez Montanez Work Phone: [facility] Work Phone: 06-05-2022 15:00-0500 Respiratory rate 16 /min Dr. Alvarez Montanez Work Phone: [facility] Work Phone: 06-05-2022 15:00-0500 SaO2% (BldA) [Mass fraction] 99 % Dr. Alvarez Montanez Work Phone: [facility] Work Phone: 06-05-2022 15:00-0500 Systolic blood pressure 112 mm[Hg] Dr. Alvarez Montanez Work Phone: [facility] Work Phone: 04-01-2022 16:29-0400 Diastolic blood pressure 85 mm[Hg] Dr. Alvarez Montanez Work Phone: [facility] Work Phone: 04-01-2022 16:29-0400 Heart rate 80 /min Dr. Alvarez Montanez Work Phone: [facility] Work Phone: 04-01-2022 16:29-0400 Respiratory rate 17 /min Dr. Alvarez Montanez Work Phone: [facility] Work Phone: 04-01-2022 16:29-0400 Systolic blood pressure 124 mm[Hg] Dr. Alvarez Montanez Work Phone: [facility] Work Phone: 04-01-2022 14:58-0400 Inhaled oxygen flow rate 2 L/min Dr. Alvarez Montanez Work Phone: [facility] Work Phone: 04-01-2022 14:58-0400 SaO2% (BldA) [Mass fraction] 99 % Dr. Alvarez Montanez Work Phone: [facility] Work Phone: 04-01-2022 12:47-0400 Body height 167.[address] Alvarez Montanez Work Phone: [facility] Work Phone: 04-01-2022 12:47-0400 Body mass index (BMI) [Ratio] 40.6 kg/m2 Dr. Alvarez Montanez Work Phone: [facility] Work Phone: 04-01-2022 12:47-0400 Body temperature 98.3 [degF] Dr. Alvarez Montanez Work Phone: [facility] Work Phone: 04-01-2022 12:47-0400 Body weight 114.[address] Alvarez Montanez Work Phone: [facility] Work Phone: 03-19-2022 16:44-0400 Inhaled oxygen flow rate 3 L/min Dr. Alvarez Montanez Work Phone: [facility] Work Phone: 03-19-2022 16:44-0400 SaO2% (BldA) [Mass fraction] 98 % Dr. Alvarez Montanez Work Phone: [facility] Work Phone: 03-19-2022 14:28-0400 Body height 165.[address] Alvarez Montanez Work Phone: [facility] Work Phone: 03-19-2022 14:28-0400 Body mass index (BMI) [Ratio] 43.2 kg/m2 Dr. Alvarez Montanez Work Phone: [facility] Work Phone: 03-19-2022 14:28-0400 Body temperature 98.7 [degF] Dr. Alvarez Montanez Work Phone: [facility] Work Phone: 03-19-2022 14:28-0400 Body weight [address] Alvarez Montanez Work Phone: [facility] Work Phone: 03-19-2022 14:28-0400 Diastolic blood pressure 65 mm[Hg] Dr. Alvarez Montanez Work Phone: [facility] Work Phone: 03-19-2022 14:28-0400 Heart rate 65 /min Dr. Alvarez Montanez Work Phone: [facility] Work Phone: 03-19-2022 14:28-0400 Respiratory rate 18 /min Dr. Alvarez Montanez Work Phone: [facility] Work Phone: 03-19-2022 14:28-0400 Systolic blood pressure 117 mm[Hg] Dr. Alvarez Montanez Work Phone: [facility] Work Phone: 03-15-2022 17:02-0400 Body height 165.[address] Alvarez Montanez Work Phone: [facility] Work Phone: 03-15-2022 17:02-0400 Body mass index (BMI) [Ratio] 37.4 kg/m2 Dr. Alvarez Montanez Work Phone: [facility] Work Phone: 03-15-2022 17:02-0400 Body temperature 98.2 [degF] Dr. Alvarez Montanez Work Phone: [facility] Work Phone: 03-15-2022 17:02-0400 Body weight 102.[address] Alvarez Montanez Work Phone: [facility] Work Phone: 03-15-2022 17:02-0400 Diastolic blood pressure 86 mm[Hg] Dr. Alvarez Montanez Work Phone: [facility] Work Phone: 03-15-2022 17:02-0400 Heart rate 69 /min Dr. Alvarez Montanez Work Phone: [facility] Work Phone: 03-15-2022 17:02-0400 Inhaled oxygen flow rate 3 L/min Dr. Alvarez Montanez Work Phone: [facility] Work Phone: 03-15-2022 17:02-0400 Respiratory rate 14 /min Dr. Alvarez Montanez Work Phone: [facility] Work Phone: 03-15-2022 17:02-0400 SaO2% (BldA) [Mass fraction] 98 % Dr. Alvarez Montanez Work Phone: [facility] Work Phone: 03-15-2022 17:02-0400 Systolic blood pressure 120 mm[Hg] Dr. Alvarez Montanez Work Phone: [facility] Work Phone: 03-15-2022 15:16-0400 Body mass index (BMI) [Ratio] 36.3 kg/m2 Dr. Alvarez Montanez Work Phone: [facility] Work Phone: 03-15-2022 15:16-0400 Body temperature 97.7 [degF] Dr. Alvarez Montanez Work Phone: [facility] Work Phone: 03-15-2022 15:16-0400 Body weight 102.[address] Alvarez Montanez Work Phone: [facility] Work Phone: 03-15-2022 15:16-0400 Diastolic blood pressure 80 mm[Hg] Dr. Alvarez Montanez Work Phone: [facility] Work Phone: 03-15-2022 15:16-0400 Heart rate 70 /min Dr. Alvarez Montanez Work Phone: [facility] Work Phone: 03-15-2022 15:16-0400 Inhaled oxygen flow rate 3 L/min Dr. Alvarez Montanez Work Phone: [facility] Work Phone: 03-15-2022 15:16-0400 Respiratory rate 14 /min Dr. Alvarez Montanez Work Phone: [facility] Work Phone: 03-15-2022 15:16-0400 SaO2% (BldA) [Mass fraction] 99 % Dr. Alvarez Montanez Work Phone: [facility] Work Phone: 03-15-2022 15:16-0400 Systolic blood pressure 104 mm[Hg] Dr. Alvarez Montanez Work Phone: [facility] Work Phone: 03-06-2022 21:05-0400 Diastolic blood pressure 54 mm[Hg] Dr. Alvarez Montanez Work Phone: [facility] Work Phone: 03-06-2022 21:05-0400 Heart rate 68 /min Dr. Alvarez Montanez Work Phone: [facility] Work Phone: 03-06-2022 21:05-0400 Systolic blood pressure 121 mm[Hg] Dr. Alvarez Montanez Work Phone: [facility] Work Phone: 03-06-2022 18:27-0400 Inhaled oxygen flow rate 3 L/min Dr. Alvarez Montanez Work Phone: [facility] Work Phone: 03-06-2022 18:27-0400 Respiratory rate 24 /min Dr. Alvarez Montanez Work Phone: [facility] Work Phone: 03-06-2022 18:27-0400 SaO2% (BldA) [Mass fraction] 99 % Dr. Alvarez Montanez Work Phone: [facility] Work Phone: 03-06-2022 16:44-0400 Body height 167.[address] Alvarez Montanez Work Phone: [facility] Work Phone: 03-06-2022 16:44-0400 Body mass index (BMI) [Ratio] 36.3 kg/m2 Dr. Alvarez Montanez Work Phone: [facility] Work Phone: 03-06-2022 16:44-0400 Body temperature 97.8 [degF] Dr. Alvarez Montanez Work Phone: [facility] Work Phone: 03-06-2022 16:44-0400 Body weight 102.[address] Alvarez Montanez Work Phone: [facility] Work Phone: 02-20-2022 14:19-0400 Body temperature 96.8 [degF] Alvarez Montanez MD Work Phone: [facility] 02-20-2022 14:19-0400 Diastolic blood pressure 68 mm[Hg] Alvarez Montanez MD Work Phone: [facility] 02-20-2022 14:19-0400 Heart rate 68 /min Alvarez Montanez MD Work Phone: [facility] 02-20-2022 14:19-0400 Respiratory rate 20 /min Alvarez Montanez MD Work Phone: [facility] 02-20-2022 14:19-0400 SaO2% (BldA) [Mass fraction] 97 % Alvarez Montanez MD Work Phone: [facility] 02-20-2022 14:19-0400 Systolic blood pressure 106 mm[Hg] Alvarez Montanez MD Work Phone: [facility] 02-12-2022 17:55-0400 Diastolic blood pressure 76 mm[Hg] Dr. Alvarez Montanez Work Phone: [facility] Work Phone: 02-12-2022 17:55-0400 Heart rate 62 /min Dr. Alvarez Montanez Work Phone: [facility] Work Phone: 02-12-2022 17:55-0400 Respiratory rate 16 /min Dr. Alvarez Montanez Work Phone: [facility] Work Phone: 02-12-2022 17:55-0400 SaO2% (BldA) [Mass fraction] 99 % Dr. Alvarez Montanez Work Phone: [facility] Work Phone: 02-12-2022 17:55-0400 Systolic blood pressure 120 mm[Hg] Dr. Alvarez Montanez Work Phone: [facility] Work Phone: 02-12-2022 15:34-0400 Body height 165.[address] Alvarez Montanez Work Phone: [facility] Work Phone: 02-12-2022 15:34-0400 Body mass index (BMI) [Ratio] 43.2 kg/m2 Dr. Alvarez Montanez Work Phone: [facility] Work Phone: 02-12-2022 15:34-0400 Body temperature 97 [degF] Dr. Alvarez Montanez Work Phone: [facility] Work Phone: 02-12-2022 15:34-0400 Body weight 117.[address] Alvarez Montanez Work Phone: [facility] Work Phone: 02-12-2022 15:34-0400 Inhaled oxygen flow rate 3 L/min Dr. Alvarez Montanez Work Phone: [facility] Work Phone: 01-30-2022 18:45-0400 Body temperature 96.49 [degF] Alvarez Montanez MD Work Phone: [facility] 01-30-2022 18:45-0400 Diastolic blood pressure 82 mm[Hg] Alvarez Montanez MD Work Phone: [facility] 01-30-2022 18:45-0400 Heart rate 80 /min Alvarez Montanez MD Work Phone: [facility] 01-30-2022 18:45-0400 Respiratory rate 20 /min Alvarez Montanez MD Work Phone: [facility] 01-30-2022 18:45-0400 SaO2% (BldA) [Mass fraction] 100 % Alvarez Montanez MD Work Phone: [facility] 01-30-2022 18:45-0400 Systolic blood pressure 130 mm[Hg] Alvarez Montanez MD Work Phone: [facility] 01-19-2022 14:15-0400 Body temperature 97.8 [degF] Dr. Alvarez Montanez Work Phone: [facility] Work Phone: 01-19-2022 14:15-0400 Diastolic blood pressure 53 mm[Hg] Dr. Alvarez Montanez Work Phone: [facility] Work Phone: 01-19-2022 14:15-0400 Heart rate 67 /min Dr. Alvarez Montanez Work Phone: [facility] Work Phone: 01-19-2022 14:15-0400 Inhaled oxygen flow rate 2 L/min Dr. Alvarez Montanez Work Phone: [facility] Work Phone: 01-19-2022 14:15-0400 Respiratory rate 18 /min Dr. Alvarez Montanez Work Phone: [facility] Work Phone: 01-19-2022 14:15-0400 SaO2% (BldA) [Mass fraction] 97 % Dr. Alvarez Montanez Work Phone: [facility] Work Phone: 01-19-2022 14:15-0400 Systolic blood pressure 95 mm[Hg] Dr. Alvarez Montanez Work Phone: [facility] Work Phone: 01-19-2022 06:00-0400 Body weight 118.[address] Alvarez Montanez Work Phone: [facility] Work Phone: 01-18-2022 04:02-0400 Body height 165.[address] Alvarez Montanez Work Phone: [facility] Work Phone: 01-18-2022 04:02-0400 Body mass index (BMI) [Ratio] 42.8 kg/m2 Dr. Alvarez Montanez Work Phone: [facility] Work Phone: 01-18-2022 03:11-0400 Body temperature 97.7 [degF] Dr. Alvarez Montanez Work Phone: [facility] Work Phone: 01-18-2022 03:11-0400 Diastolic blood pressure 62 mm[Hg] Dr. Alvarez Montanez Work Phone: [facility] Work Phone: 01-18-2022 03:11-0400 Heart rate 55 /min Dr. Alvarez Montanez Work Phone: [facility] Work Phone: 01-18-2022 03:11-0400 Respiratory rate 18 /min Dr. Alvarez Montanez Work Phone: [facility] Work Phone: 01-18-2022 03:11-0400 SaO2% (BldA) [Mass fraction] 100 % Dr. Alvarez Montanez Work Phone: [facility] Work Phone: 01-18-2022 03:11-0400 Systolic blood pressure 119 mm[Hg] Dr. Alvarez Montanez Work Phone: [facility] Work Phone: 01-17-2022 23:34-0400 Body height 165.[address] Alvarez Montanez Work Phone: [facility] Work Phone: 01-17-2022 23:34-0400 Body mass index (BMI) [Ratio] 43.9 kg/m2 Dr. Alvarez Montanez Work Phone: [facility] Work Phone: 01-17-2022 23:34-0400 Body weight 119.[address] Alvarez Montanez Work Phone: [facility] Work Phone: 01-15-2022 22:06-0400 Diastolic blood pressure 71 mm[Hg] Dr. Alvarez Montanez Work Phone: [facility] Work Phone: 01-15-2022 22:06-0400 Heart rate 56 /min Dr. Alvarez Montanez Work Phone: [facility] Work Phone: 01-15-2022 22:06-0400 Respiratory rate 17 /min Dr. Alvarez Montanez Work Phone: [facility] Work Phone: 01-15-2022 22:06-0400 SaO2% (BldA) [Mass fraction] 99 % Dr. Alvarez Montanez Work Phone: [facility] Work Phone: 01-15-2022 22:06-0400 Systolic blood pressure 107 mm[Hg] Dr. Alvarez Montanez Work Phone: [facility] Work Phone: 01-15-2022 22:00-0400 Inhaled oxygen flow rate 2 L/min Dr. Alvarez Montanez Work Phone: [facility] Work Phone: 01-15-2022 19:01-0400 Body height 167.[address] Alvarez Montanez Work Phone: [facility] Work Phone: 01-15-2022 19:01-0400 Body mass index (BMI) [Ratio] 42.6 kg/m2 Dr. Alvarez Montanez Work Phone: [facility] Work Phone: 01-15-2022 19:01-0400 Body temperature 97.8 [degF] Dr. Alvarez Montanez Work Phone: [facility] Work Phone: 01-15-2022 19:01-0400 Body weight 119.[address] Alvarez Montanez Work Phone: [facility] Work Phone: 01-10-2022 22:33-0400 Diastolic blood pressure 76 mm[Hg] Dr. Alvarez Montanez Work Phone: [facility] Work Phone: 01-10-2022 22:33-0400 Heart rate 82 /min Dr. Alvarez Montanez Work Phone: [facility] Work Phone: 01-10-2022 22:33-0400 Respiratory rate 16 /min Dr. Alvarez Montanez Work Phone: [facility] Work Phone: 01-10-2022 22:33-0400 SaO2% (BldA) [Mass fraction] 98 % Dr. Alvarez Montanez Work Phone: [facility] Work Phone: 01-10-2022 22:33-0400 Systolic blood pressure 106 mm[Hg] Dr. Alvarez Montanez Work Phone: [facility] Work Phone: 01-10-2022 18:44-0400 Inhaled oxygen flow rate 2 L/min Dr. Alvarez Montanez Work Phone: [facility] Work Phone: 01-10-2022 17:30-0400 Body temperature 96.8 [degF] Dr. Alvarez Montanez Work Phone: [facility] Work Phone: 01-10-2022 17:28-0400 Body height 167.[address] Alvarez Montanez Work Phone: [facility] Work Phone: 01-10-2022 17:28-0400 Body mass index (BMI) [Ratio] 38.7 kg/m2 Dr. Alvarez Montanez Work Phone: [facility] Work Phone: 01-10-2022 17:28-0400 Body weight 108.[address] Alvarez Montanez Work Phone: [facility] Work Phone: 12-14-2021 15:02-0400 Body temperature 98.1 [degF] Dr. Alvarez Montanez Work Phone: [facility] Work Phone: 12-14-2021 15:02-0400 Diastolic blood pressure 68 mm[Hg] Dr. Alvarez Montanez Work Phone: [facility] Work Phone: 12-14-2021 15:02-0400 Heart rate 64 /min Dr. Alvarez Montanez Work Phone: [facility] Work Phone: 12-14-2021 15:02-0400 Respiratory rate 17 /min Dr. Alvarez Montanez Work Phone: [facility] Work Phone: 12-14-2021 15:02-0400 SaO2% (BldA) [Mass fraction] 99 % Dr. Alvarez Montanez Work Phone: [facility] Work Phone: 12-14-2021 15:02-0400 Systolic blood pressure 168 mm[Hg] Dr. Alvarez Montanez Work Phone: [facility] Work Phone: 12-14-2021 13:20-0400 Body height 165.[address] Alvarez Montanez Work Phone: [facility] Work Phone: 12-14-2021 13:20-0400 Body mass index (BMI) [Ratio] 39.9 kg/m2 Dr. Alvarez Montanez Work Phone: [facility] Work Phone: 12-14-2021 13:20-0400 Body weight 108.[address] Alvarez Montanez Work Phone: [facility] Work Phone: 12-14-2021 13:20-0400 Inhaled oxygen flow rate 3 L/min Dr. Alvarez Montanez Work Phone: [facility] Work Phone: 12-12-2021 15:38-0400 Body temperature 98.2 [degF] Dr. Alvarez Montanez Work Phone: [facility] Work Phone: 12-12-2021 15:38-0400 Diastolic blood pressure 90 mm[Hg] Dr. Alvarez Montanez Work Phone: [facility] Work Phone: 12-12-2021 15:38-0400 Heart rate 68 /min Dr. Alvarez Montanez Work Phone: [facility] Work Phone: 12-12-2021 15:38-0400 Respiratory rate 16 /min Dr. Alvarez Montanez Work Phone: [facility] Work Phone: 12-12-2021 15:38-0400 SaO2% (BldA) [Mass fraction] 97 % Dr. Alvarez Montanez Work Phone: [facility] Work Phone: 12-12-2021 15:38-0400 Systolic blood pressure 128 mm[Hg] Dr. Alvarez Montanez Work Phone: [facility] Work Phone: 12-12-2021 15:38-0400 Body temperature 98.2 [degF] Dr. Alvarez Montanez Work Phone: [facility] Work Phone: 12-12-2021 15:38-0400 Diastolic blood pressure 90 mm[Hg] Dr. Alvarez Montanez Work Phone: [facility] Work Phone: 12-12-2021 15:38-0400 Heart rate 68 /min Dr. Alvarez Montanez Work Phone: [facility] Work Phone: 12-12-2021 15:38-0400 Respiratory rate 16 /min Dr. Alvarez Montanez Work Phone: [facility] Work Phone: 12-12-2021 15:38-0400 SaO2% (BldA) [Mass fraction] 97 % Dr. Alvarez Montanez Work Phone: [facility] Work Phone: 12-12-2021 15:38-0400 Systolic blood pressure 128 mm[Hg] Dr. Alvarez Montanez Work Phone: [facility] Work Phone: 11-03-2021 20:54-0400 Diastolic blood pressure 69 mm[Hg] Dr. Alvarez Montanez Work Phone: [facility] Work Phone: 11-03-2021 20:54-0400 Heart rate 99 /min Dr. Alvarez Montanez Work Phone: [facility] Work Phone: 11-03-2021 20:54-0400 Respiratory rate 20 /min Dr. Alvarez Montanez Work Phone: [facility] Work Phone: 11-03-2021 20:54-0400 Systolic blood pressure 110 mm[Hg] Dr. Alvarez Montanez Work Phone: [facility] Work Phone: 11-03-2021 20:53-0400 SaO2% (BldA) [Mass fraction] 96 % Dr. Alvarez Montanez Work Phone: [facility] Work Phone: 11-03-2021 19:16-0400 Inhaled oxygen flow rate 2 L/min Dr. Alvarez Montanez Work Phone: [facility] Work Phone: 11-03-2021 17:19-0400 Body height 167.[address] Alvarez Montanez Work Phone: [facility] Work Phone: 11-03-2021 17:19-0400 Body mass index (BMI) [Ratio] 42.5 kg/m2 Dr. Alvarez Montanez Work Phone: [facility] Work Phone: 11-03-2021 17:19-0400 Body temperature 97.7 [degF] Dr. Alvarez Montanez Work Phone: [facility] Work Phone: 11-03-2021 17:19-0400 Body weight 119.[address] Alvarez Montanez Work Phone: [facility] Work Phone: 10-31-2021 08:47-0400 Body temperature 98.6 [degF] Dr. Alvarez Montanez Work Phone: [facility] Work Phone: 10-31-2021 08:47-0400 Diastolic blood pressure 78 mm[Hg] Dr. Alvarez Montanez Work Phone: [facility] Work Phone: 10-31-2021 08:47-0400 Heart rate 70 /min Dr. Alvarez Montanez Work Phone: [facility] Work Phone: 10-31-2021 08:47-0400 Respiratory rate 18 /min Dr. Alvarez Montanez Work Phone: [facility] Work Phone: 10-31-2021 08:47-0400 SaO2% (BldA) [Mass fraction] 96 % Dr. Alvarez Montanez Work Phone: [facility] Work Phone: 10-31-2021 08:47-0400 Systolic blood pressure 112 mm[Hg] Dr. Alvarez Montanez Work Phone: [facility] Work Phone: 10-31-2021 08:47-0400 Body temperature 98.6 [degF] Dr. Alvarez Montanez Work Phone: [facility] Work Phone: 10-31-2021 08:47-0400 Diastolic blood pressure 78 mm[Hg] Dr. Alvarez Montanez Work Phone: [facility] Work Phone: 10-31-2021 08:47-0400 Heart rate 70 /min Dr. Alvarez Montanez Work Phone: [facility] Work Phone: 10-31-2021 08:47-0400 Respiratory rate 18 /min Dr. Alvarez Montanez Work Phone: [facility] Work Phone: 10-31-2021 08:47-0400 SaO2% (BldA) [Mass fraction] 96 % Dr. Alvarez Montanez Work Phone: [facility] Work Phone: 10-31-2021 08:47-0400 Systolic blood pressure 112 mm[Hg] Dr. Alvarez Montanez Work Phone: [facility] Work Phone: 10-18-2021 13:09-0400 Body height 167.6 cm Hcilo Matthew PA-C Work Phone: [facility] 10-18-2021 13:09-0400 Body temperature 96.91 [degF] Chilo Matthew PA-C Work Phone: [facility] 10-18-2021 13:09-0400 Body weight 113.4 kg Chilo Matthew PA-C Work Phone: [facility] 10-18-2021 13:09-0400 Diastolic blood pressure 70 mm[Hg] Chilo Matthew PA-C Work Phone: [facility] 10-18-2021 13:09-0400 Heart rate 66 /min Chilo Matthew PA-C Work Phone: [facility] 10-18-2021 13:09-0400 Respiratory rate 14 /min Chilo Matthew PA-C Work Phone: [facility] 10-18-2021 13:09-0400 SaO2% (BldA) [Mass fraction] 99 % Chilo Matthew PA-C Work Phone: [facility] 10-18-2021 13:09-0400 Systolic blood pressure 98 mm[Hg] Chilo Matthew PA-C Work Phone: [facility] 09-22-2021 21:44-0500 Diastolic blood pressure 60 mm[Hg] Dr. Alvarez Montanez Work Phone: [facility] Work Phone: 09-22-2021 21:44-0500 Heart rate 78 /min Dr. Alvarez Montanez Work Phone: [facility] Work Phone: 09-22-2021 21:44-0500 Respiratory rate 16 /min Dr. Alvarez Montanez Work Phone: [facility] Work Phone: 09-22-2021 21:44-0500 Systolic blood pressure 110 mm[Hg] Dr. Alvarez Montanez Work Phone: [facility] Work Phone: 09-22-2021 20:44-0500 Diastolic blood pressure 60 mm[Hg] Dr. Alvarez Montanez Work Phone: [facility] Work Phone: 09-22-2021 20:44-0500 Heart rate 78 /min Dr. Alvarez Montanez Work Phone: [facility] Work Phone: 09-22-2021 20:44-0500 Respiratory rate 16 /min Dr. Alvarez Montanez Work Phone: [facility] Work Phone: 09-22-2021 20:44-0500 Systolic blood pressure 110 mm[Hg] Dr. Alvarez Montanez Work Phone: [facility] Work Phone: 09-22-2021 18:06-0500 Body temperature 96.8 [degF] Dr. Alvarez Montanez Work Phone: [facility] Work Phone: 09-22-2021 18:06-0500 SaO2% (BldA) [Mass fraction] 98 % Dr. Alvarez Montanez Work Phone: [facility] Work Phone: 09-22-2021 18:04-0500 Body mass index (BMI) [Ratio] 38.7 kg/m2 Dr. Alvarez Montanez Work Phone: [facility] Work Phone: 09-22-2021 18:04-0500 Body weight 108.[address] Alvarez Montanez Work Phone: [facility] Work Phone: 09-22-2021 17:06-0500 Body temperature 96.8 [degF] Dr. Alvarez Montanez Work Phone: [facility] Work Phone: 09-22-2021 17:06-0500 SaO2% (BldA) [Mass fraction] 98 % Dr. Alvarez Montanez Work Phone: [facility] Work Phone: 09-22-2021 17:04-0500 Body height 167.[address] Alvarez Montanez Work Phone: [facility] Work Phone: 09-22-2021 17:04-0500 Body mass index (BMI) [Ratio] 38.7 kg/m2 Dr. Alvarez Montanez Work Phone: [facility] Work Phone: 09-22-2021 17:04-0500 Body weight 108.[address] Alvarez Montanez Work Phone: [facility] Work Phone: 08-31-2021 10:58-0500 Body temperature 98.3 [degF] Dr. Alvarez Montanez Work Phone: [facility] Work Phone: 08-31-2021 10:58-0500 Diastolic blood pressure 81 mm[Hg] Dr. Alvarez Montanez Work Phone: [facility] Work Phone: 08-31-2021 10:58-0500 Heart rate 62 /min Dr. Alvarez Montanez Work Phone: [facility] Work Phone: 08-31-2021 10:58-0500 Respiratory rate 16 /min Dr. Alvarez Montanez Work Phone: [facility] Work Phone: 08-31-2021 10:58-0500 SaO2% (BldA) [Mass fraction] 99 % Dr. Alvarez Montanez Work Phone: [facility] Work Phone: 08-31-2021 10:58-0500 Systolic blood pressure 118 mm[Hg] Dr. Alvarez Montanez Work Phone: [facility] Work Phone: 08-31-2021 04:48-0500 Body weight [address] Alvarez Montanez Work Phone: [facility] Work Phone: 08-29-2021 08:33-0500 Body mass index (BMI) [Ratio] 41.7 kg/m2 Dr. Alvarez Montanez Work Phone: [facility] Work Phone: 08-18-2021 12:37-0500 Diastolic blood pressure 85 mm[Hg] Dr. Alvarez Montanez Work Phone: [facility] Work Phone: 08-18-2021 12:37-0500 Heart rate 66 /min Dr. Alvarez Montanez Work Phone: [facility] Work Phone: 08-18-2021 12:37-0500 Respiratory rate 19 /min Dr. Alvarez Montanez Work Phone: [facility] Work Phone: 08-18-2021 12:37-0500 SaO2% (BldA) [Mass fraction] 96 % Dr. Alvarez Montanez Work Phone: [facility] Work Phone: 08-18-2021 12:37-0500 Systolic blood pressure 118 mm[Hg] Dr. Alvarez Montanez Work Phone: [facility] Work Phone: 08-18-2021 09:55-0500 Body mass index (BMI) [Ratio] 42.4 kg/m2 Dr. Alvarez Montanez Work Phone: [facility] Work Phone: 08-18-2021 09:55-0500 Body temperature 98.1 [degF] Dr. Alvarez Montanez Work Phone: [facility] Work Phone: 08-18-2021 09:55-0500 Body weight 119.[address] Alvarez Montanez Work Phone: [facility] Work Phone: 07-22-2021 09:40-0500 Body mass index (BMI) [Ratio] 33.3 kg/m2 Dr. Alvarez Montanez Work Phone: [facility] Work Phone: 07-22-2021 09:40-0500 Body temperature 98.4 [degF] Dr. Alvarez Montanez Work Phone: [facility] Work Phone: 07-22-2021 09:40-0500 Body weight 90.[address] Alvarez Montanez Work Phone: [facility] Work Phone: 07-22-2021 09:40-0500 Diastolic blood pressure 97 mm[Hg] Dr. Alvarez Montanez Work Phone: [facility] Work Phone: 07-22-2021 09:40-0500 Heart rate 102 /min Dr. Alvarez Montanez Work Phone: [facility] Work Phone: 07-22-2021 09:40-0500 Respiratory rate 16 /min Dr. Alvarez Montanez Work Phone: [facility] Work Phone: 07-22-2021 09:40-0500 SaO2% (BldA) [Mass fraction] 99 % Dr. Alvarez Montanez Work Phone: [facility] Work Phone: 07-22-2021 09:40-0500 Systolic blood pressure 134 mm[Hg] Dr. Alvarez Montanez Work Phone: [facility] Work Phone: 05-09-2017 05:49-0400 BMI (Body Mass Index) 49.22 kg/m2 Yolanda Skinner [facility] Work Phone: 05-09-2017 05:49-0400 Body Temperature 97.5 [degF] Yolanda Skinner [facility] Work Phone: 05-09-2017 05:49-0400 BP Diastolic 106 mm[Hg] Yolanda Skinner [facility] [place] Work Phone: 05-09-2017 05:49-0400 BP Systolic 140 mm[Hg] Yolanda Sk[facility] [place] Work Phone: 05-09-2017 05:49-0400 Height 167.64 cm Yolanda Skinner [facility] [place] Work Phone: 05-09-2017 05:49-0400 Pulse (Heart Rate) 98 /min Yolanda Skinner [facility] [place] Work Phone: 05-09-2017 05:49-0400 Respiratory Rate 18 /min Yolanda Skinner [facility] [place] Work Phone: 05-09-2017 05:49-0400 Weight 138.35 kg Yolanda Skinner [facility] [place] Work Phone: 03-29-2017 06:30-0400 BMI (Body Mass Index) 50.51 kg/m2 Alba Cedeno [facility] Work Phone: 03-29-2017 06:30-0400 Body Temperature 98.2 [degF] Alba Cedeno [facility] [place] Work Phone: 03-29-2017 06:30-0400 BP Diastolic 82 mm[Hg] Alba Ced[facility] [place] Work Phone: 03-29-2017 06:30-0400 BP Systolic 156 mm[Hg] Alba Cedeno [facility] Work Phone: 03-29-2017 06:30-0400 Height 167.64 cm Alba York [facility] [place] Work Phone: 03-29-2017 06:30-0400 Pulse (Heart Rate) 80 /min [facility] [place] Work Phone: 03-29-2017 06:30-0400 Respiratory Rate 18 /min [facility] [place] Work Phone: 03-29-2017 06:30-0400 Weight 141.98 kg Alba Cedeno [facility] [place] Work Phone: 01-18-2017 15:05-0400 Heart rate 82 /min Harumi DeFinis [facility] Work Phone: 01-18-2017 14:48-0400 BMI (Body Mass Index) 47.12 kg/m2 Get Christianson DO [facility] [place] Work Phone: 01-18-2017 14:48-0400 BP Diastolic 84 mm[Hg] Get Christianson DO [facility] [place] Work Phone: 01-18-2017 14:48-0400 BP Systolic 126 mm[Hg] Get Brown DO [facility] [place] Work Phone: 01-18-2017 14:48-0400 Height 167.64 cm Get Brown DO [facility] [place] Work Phone: 01-18-2017 14:48-0400 Pulse (Heart Rate) 84 /min Get Christianson DO [facility] [place] Work Phone: 01-18-2017 14:48-0400 Respiratory Rate 18 /min Get Christianson DO [facility] [place] Work Phone: 01-18-2017 14:48-0400 Weight 132.45 kg Get Christianson DO [facility] [place] Work Phone: 01-02-2017 06:51-0400 BMI (Body Mass Index) 48.58 kg/m2 Alba Dukes [employer] [facility] [place] Work Phone: 01-02-2017 06:51-0400 Body Temperature 97.3 [degF] Alba Dukes [employer] K[employer] [place] Work Phone: 01-02-2017 06:51-0400 BP Diastolic 87 mm[Hg] Alba Dukes [employer]LEPH[employer] KEE[facility] [place] Work Phone: 01-02-2017 06:51-0400 BP Systolic 130 mm[Hg] Alba Dukes ELEPHANT KEEPER [facility] [place] Work Phone: 01-02-2017 06:51-0400 Height 167.64 cm Alba Dukes ELEPH[employer] KEE[employer] [facility] [place] Work Phone: 01-02-2017 06:51-0400 Inhaled O2 3 Alba Dukes ELEPH[employer] KEEPER [facility] [place] Work Phone: 01-02-2017 06:51-0400 Pulse (Heart Rate) 70 /min Alba Dukes [employer]LEPH[employer] KEE[facility] [place] Work Phone: 01-02-2017 06:51-0400 Pulse Oximetry 96 % Alba Dukes ELEPH[employer] KEE[employer] [facility] [place] Work Phone: 01-02-2017 06:51-0400 Respiratory Rate 20 /min Alba Roseline ELEPHANT KEEPER [facility] [place] Work Phone: 01-02-2017 06:51-0400 Weight 136.53 kg Alba Dukes ELEPHANT KEEPER [facility] [place] Work Phone: 10-19-2016 14:15-0400 BMI (Body Mass Index) 45.83 kg/m2 Alba Dukes ELEPHANT KEEPER [facility] [place] Work Phone: 10-19-2016 14:15-0400 Body Temperature 98.1 [degF] Alba Dukes ELEPHANT KEEPER [facility] [place] Work Phone: 10-19-2016 14:15-0400 BP Diastolic 92 mm[Hg] Alba Dukes ELEPHANT KEEPER [facility] [place] Work Phone: 10-19-2016 14:15-0400 BP Systolic 141 mm[Hg] Alba Dukes ELEPHANT KEEPER [facility] [place] Work Phone: 10-19-2016 14:15-0400 Height 167.64 cm Alba Dukes ELEPHANT KEEPER [facility] [place] Work Phone: 10-19-2016 14:15-0400 Inhaled O2 3 Alba Dukes ELEPHANT KEEPER [facility] [place] Work Phone: 10-19-2016 14:15-0400 Pulse (Heart Rate) 103 /min Alba Dukes ELEPHANT KEEPER [facility] [place] Work Phone: 10-19-2016 14:15-0400 Pulse Oximetry 97 % Alba Dukes ELEPHANT KEEPER [facility] [place] Work Phone: 10-19-2016 14:15-0400 Respiratory Rate 18 /min Alba Dukes ELEPHANT KEEPER [facility] [place] Work Phone: 10-19-2016 14:15-0400 Weight 128.82 kg Alba Dukes ELEPHANT KEEPER [facility] [place] Work Phone: Encounters Encounter Date Encounter Type Care Provider Facility Start: 01-14-2025 Non-patient / Non-visit Dr. Ysabel Ruffin MD -[facility] Start: 01-14-[address] Ysabel larson MD Work Phone: [facility] Work Phone: Start: 01-08-2025 End: 01-08-[address] Ysabel Ruffin MD Work Phone: [facility] Work Phone: Start: 01-08-2025 End: 01-08-[address] Ysabel Ruffin MD -Ultrasound [facility] Work Phone: Start: 01-08-2025 End: 01-08-[address] Chapincito Castro MD -[facility] Work Phone: Start: 01-08-2025 End: 01-08-[address] Ysabel Ruffin MD Work Phone: [facility] Work Phone: Start: 01-08-2025 End: 01-08-2025 ambulatory Ysabel Ruffin Facility:[facility] Start: 12-29-2024 End: 12-29-[address] Ysabel Ruffin MD -[facility] [place] [facility] Work Phone: Start: 12-29-2024 End: 12-29-[address] Ysabel Ruffin MD Work Phone: [facility] Work Phone: Start: 12-29-2024 End: 12-29-2024 ambulatory Ysabel Ruffin Facility:[facility] Start: 11-20-2024 End: 11-20-2024 Dr. Callum Knutson [facility] Work Phone: Start: 11-20-2024 End: 11-20-2024 Emergency department patient visit Dr. Callum Knutson MD -Emergency Department Work Phone: Start: 11-14-2024 End: 11-14-2024 Patient encounter procedure Oli NdiayeCat Scan [facility] Work Phone: Start: 11-14-2024 End: 11-14-2024 Oli NdiayeCat Scan, [facility] Work Phone: Start: 11-14-2024 End: 11-14-2024 Patient encounter procedure Oli HART -[facility] Work Phone: Start: 11-14-2024 End: 11-14-[address] [facility] Work Phone: Start: 11-14-2024 End: 11-14-2024 ambulatory Ysabel Laly Facility:[facility] Start: 11-14-2024 End: 11-14-2024 ambulatory Ysabel Laly Facility:[facility] Start: 09-01-2024 End: 09-01-[address] Luke Tirado MD -[facility] [place] Work Phone: Start: 09-01-2024 End: 09-01-2024 Dr. Luke Tirado MD -Laboratory, [place] Work Phone: Start: 09-01-2024 End: 09-01-2024 ambulatory Ysabel [place] Facility:[facility] Start: 08-28-2024 End: 08-28-[address] [facility] Work Phone: Start: 08-28-2024 End: 08-28-2024 ambulatory Ysabel [place] Facility:[facility] Start: 08-15-2024 Dr. Alexander Ye MD [facility] Work Phone: Start: 08-14-2024 Dr. Alexander Ye MD - [facility] Work Phone: Start: 08-13-2024 ambulatory Ysabel Laly Facility :[facility] Start: 08-13-2024 Dr. Nick Romano MD -[facility] Inpatient [facility] Work Phone: Start: 08-12-2024 ambulatory Ysabel Laly Facility :[facility] Start: 08-12-2024 End: 08-15-2024 Evaluation and management of inpatient Ysabel [place] Facility:[facility] Start: 08-12-2024 End: 08-15-2024 Dr. Alexander Ye MD -[facility] it Work Phone: Start: 08-05-2024 ambulatory Ysabel [place] Facility :[facility] Start: 07-26-2024 End: 07-26-2024 Letter encounter Imani Geiger MD Work Phone: [facility] Start: 07-21-2024 End: 07-21-2024 ambulatory Ysabel [place] Facility:[facility] Start: 06-26-2024 End: 06-26-2024 ambulatory Ysabel [place] Facility:[facility] Start: 06-23-2024 ambulatory Ysabel Laly Facility :[facility] Start: 06-22-2024 End: 06-23-2024 [facility] Start: 04-28-2024 ambulatory Ysabel Laly Facility :[facility] Start: 03-17-2024 End: 03-17-2024 ambulatory Ysabel Laly Facility:[facility] Start: 01-07-2024 ambulatory Demario Martinez RN [facility] Comment on above: Community Monitoring Outreach Start: 11-16-2023 ambulatory Demario Martinez RN [facility] Comment on above: Community Monitoring Outreach Start: 11-02-2023 Documentation procedure Mammography Coordinator [facility] Start: 11-02-2023 Letter encounter Mammography Coordinator [facility] Start: 11-01-2023 End: 11-01-2023 ambulatory LORIE MONTANEZ Facility:[facility] Start: 11-01-2023 End: 11-01-2023 [facility] Start: 11-01-2023 End: 11-01-2023 Subsequent hospital visit by physician Screen Mammo [facility] Mammogram Start: 10-15-2023 ambulatory Demario Martinez RN [facility] Comment on above: Community Monitoring Outreach Start: 10-13-2023 ambulatory Andria estrella LPN [facility] [place] Start: 09-13-2023 ambulatory Demario Martinez RN [facility] Comment on above: Community Monitoring Outreach Start: 07-02-2023 End: 07-03-2023 Emergency department patient visit Dr. Marilee Yu [facility]Emer[facility] Work Phone: Start: 07-02-2023 End: 07-02-[address] Marilee Yu [facility] [facility] Work Phone: Start: 05-24-2023 ambulatory Demario Martinez RN [facility] Comment on above: Community Monitoring Outreach Start: 02-22-2023 ambulatory Demario Martinez RN [facility] Comment on above: Community Monitoring Outreach Start: 02-07-2023 End: 02-08-2023 Emergency department patient visit [facility]Emer[facility] Work Phone: Start: 02-05-2023 End: 02-05-2023 ambulatory [facility] Work Phone: Start: 02-05-2023 End: 02-05-2023 Patient encounter procedure [facility]Laboratory, Specimen Work Phone: Start: 08-09-2022 ambulatory [facility] Start: 08-09-2022 End: 08-09-2022 Telemedicine consultation with patient Tom Montelongo MD Work Phone: [facility] Psychiatry Comment on above: NO SHOW (Primary Dx) Start: 07-24-2022 Refill Alvarez crow MD Work Phone: [facility] [place] Comment on above: Refill Request Start: 06-27-2022 Refill Alvarez crow MD Work Phone: [facility] [place] Comment on above: Refill Request Start: 06-21-2022 ambulatory UNKNOWN PROVIDER Facili [facility] Start: 06-06-2022 End: 06-06-2022 Evaluation and management of inpatient Dr. Alvarez Montanez Work Phone: [facility]-Progressive Care Unit Start: 06-06-2022 Non-patient / Non-visit Dr. Alvarez Montanez Work Phone: [facility] In[facility] Start: 06-06-[address] Melissa Montanez Work Phone: [facility] Work Phone: Start: 06-05-2022 End: 06-05-[address] Alvarez Montanez Work Phone: [facility] Work Phone: Start: 06-05-2022 End: 06-05-[address] Alvarez Montanez Work Phone: [facility] Internal Medicine Start: 05-24-2022 Refill Alvarez crow MD Work Phone: [facility] [place] Comment on above: Refill Request Start: 05-10-2022 End: 05-10-2022 Phys/qhp telephone evaluation 11-20 min Tom Montelongo MD Work Phone: [facility] Psychiatry Comment on above: Anxiety; Major depressive disorder, recurrent episode with anxious distress (HCC) Start: 05-10-2022 End: 05-10-2022 Telemedicine consultation with patient Tom Montelongo MD Work Phone: [facility] Psychiat[facility] Comment on above: Anxiety; Major depressive disorder, recurrent episode with anxious distress (HCC) Start: 05-01-[address] Alvarez Montanez [facility] Start: 05-01-2022 End: 05-01-[address] Alvarez Montanez Work Phone: [facility]-Laboratory, Specimen Start: 04-24-2022 Letter encounter Imani avila MD Work Phone: [facility] Start: 04-01-2022 End: 04-01-2022 Emergency department patient visit Dr. Alvarez Montanez Work Phone: [facility]-Emergency Department Start: 03-30-2022 Refill Judy shah DO Work Phone: [facility] Family Medicine Comment on above: Refill Start: 03-19-2022 End: 03-19-2022 Emergency department patient visit Dr. Alvarez Montanez Work Phone: [facility]Emergency Department Start: 03-16-2022 Non-patient / Non-visit Dr. Alvarez Montanez Work Phone: [facility] Start: 03-15-2022 End: 03-15-2022 Emergency department patient visit Dr. Alvarez Montanez [facility] Start: 03-15-2022 End: 03-15-[address] Alvarez Montanez Work Phone: [facility] Internal Medicine Start: 03-13-2022 Refill Judy shah DO Work Phone: [facility] Comment on above: Refill Start: 03-13-2022 Telephone encounter Alvarez briscoe MD Work Phone: [facility] [place] Comment on above: Palliative Care Start: 03-06-2022 End: 03-06-2022 Emergency department patient visit Dr. Alvarez Montanez [facility] Start: 02-20-2022 Documentation procedure Mammography Coordinator [facility] Start: 02-20-2022 Letter encounter Mammography Coordinator [facility] Department Start: 02-20-2022 End: 02-20-2022 Patient encounter procedure Alvarez Montanez MD Work Phone: [facility] [place] Comment on above: Left leg pain (Prima ry Dx); History of DVT of lower extremity; Anemia, unspecified type; Chronic pain syndrome; History of pulmonary embolism Start: 02-20-2022 End: 02-20-2022 Subsequent hospital visit by physician Screen Mammo [facility] Mammogram Comment on above: Obesity, Class III, BMI 40-49.9 (morbid obesity) ([facility]) [E66.01] Start: 02-16-2022 Telephone encounter Alvarez briscoe MD Work Phone: [facility] [place] Comment on above: Results Start: 02-12-2022 End: 02-12-2022 Emergency department patient visit Dr. Alvarez Montanez Work Phone: [facility]-Emergency Department Start: 02-08-2022 End: 02-08-2022 Phys/qhp telephone evaluation 21-30 min Tom oMntelongo MD Work Phone: [facility] Psychiatry Comment on above: Major depressive dis order, recurrent episode with anxious distress (HCC) (Primary Dx); Anxiety; Panic disorder with agoraphobia; Bereavement Start: 02-08-2022 ambulatory UNKNOWN PROVIDER Facili ty:[facility] Start: 01-30-2022 End: 01-30-2022 Patient encounter procedure Alvarez Montanez MD Work Phone: [facility] [place] Comment on above: Closed head injury, sequela (Primary Dx); Concussion without loss of consciousness, sequela (HCC); Anemia due to blood loss; Arvind-Christine syndrome with action induced myoclonus; Failure to thrive in adult; Falls frequently; Epistaxis; Chronic pain syndrome; Chronic respiratory failure with hypoxia (HCC) Start: 01-24-2022 Patient Outreach Alvarez diehl MD Work Phone: [facility] [place] Comment on above: Transition Of Care Start: 01-19-2022 Non-patient / Non-visit Dr. Alvarez Montanez Work Phone: [facility] Inpatient Physicians Start: 01-18-2022 Telephone encounter Alvarez briscoe MD Work Phone: [facility] [place] Comment on above: Refill Request Start: 01-18-2022 End: 01-19-2022 Evaluation and management of inpatient Dr. Alvarez Montanez Work Phone: [facility]-Progressive Care Unit Start: 01-16-2022 ambulatory Juan Marti RN [facility] Comment on above: Community Monitoring Outreach (COPD CDM Enrollment ) Start: 01-15-2022 End: 01-15-2022 Emergency department patient visit Dr. Alvarez Montanez Work Phone: [facility]-Emergency Department Start: 01-11-2022 Refill Judy shah DO Work Phone: [facility] Family Medicine Comment on above: Refill Start: 01-10-2022 End: 01-10-2022 Emergency department patient visit Dr. Alvarez Montanez [facility] Start: 12-26-2021 ambulatory Juan Marti RN [facility] Management Comment on above: Community Monitoring Outreach ([facility] ED UTI / CDM Outreach) Start: 12-14-2021 End: 12-14-2021 Emergency department patient visit Dr. Alvarez Montanez [facility] Start: 12-12-2021 End: 12-12-[address] Alvarez Montanez Work Phone: [facility] Start: 11-23-2021 ambulatory Juan Marti RN [facility] Management Comment on above: Community Monitoring Outreach (COPD CDM Outreach) Start: 11-03-2021 End: 11-03-2021 Emergency department patient visit Dr. Alvarez Montanez [facility] Start: 11-02-2021 ambulatory UNKNOWN PROVIDER Facili ty:[facility] Start: 10-31-2021 End: 10-31-[address] Alvarez Montanez Work Phone: [facility] Neurology Start: 10-26-2021 End: 10-26-2021 Subsequent hospital visit by physician [facility] (I-Stat) Work Phone: [facility] Comment on above: Gross hematuria [R31 .0] Start: 10-26-2021 Telephone encounter Chilo graves PA-C Work Phone: Urology Comment on above: Results Start: 10-26-2021 End: 10-26-[address] Alvarez Montanez Work Phone: [facility] Start: 10-24-2021 Refill Alvarez crow MD Work Phone: [facility] [place] Comment on above: Refill Request Start: 10-18-2021 Telephone encounter Ronal Pereyra MD Work Phone: [facility] Comment on above: Appointment Start: 10-18-2021 End: 10-18-2021 Patient encounter procedure Chilo Matthew PA-C Work Phone: Urology Comment on above: Gross hematuria (Kinza deion Dx); Recurrent UTI Start: 10-17-2021 End: 10-17-[address] Alvarez Montanez Work Phone: [facility] Start: 10-13-2021 Telephone encounter Alvarez briscoe MD Work Phone: [facility] [place] Comment on above: FYI: Discharged toda y Start: 10-10-2021 End: 10-10-[address] Alvarez Montanez Work Phone: [facility]-Laboratory Start: 10-10-2021 End: 10-10-[address] Alvarez Montanez Work Phone: [facility] Gastroenterology Start: 09-22-2021 End: 09-22-2021 Emergency department patient visit Dr. Alvarez Montanez Work Phone: [facility]-Emergency Department Start: 09-22-2021 End: 09-22-[address] Alvarez Montanez Work Phone: [facility] Gastroenterology Start: 09-15-2021 End: 09-15-[address] Alvarez Montanez Work Phone: [facility]-Laboratory Start: 09-15-2021 End: 09-15-[address] Alvarez Montanez Work Phone: [facility] Gastroenterology Start: 08-31-2021 Non-patient / Non-visit Dr. Alvarez Montanez Work Phone: [phone] [place] [address] Inpatient Physicians Start: 08-30-2021 Non-patient / Non-visit Dr. Alvarez Montanez Work Phone: [facility] Inpatient Physicians Start: 08-29-2021 Non-patient / Non-visit Dr. Alvarez Montanez Work Phone: [facility] Start: 08-29-2021 Non-patient / Non-visit Dr. Alvarez Montanez Work Phone: [facility] Inpatient Physicians Start: 08-28-2021 Non-patient / Non-visit Dr. Alvarez Montanez Work Phone: [facility] Start: 08-28-2021 Non-patient / Non-visit Dr. Alvarez Montanez Work Phone: [phone] [place] [address] Inpatient Physicians Start: 08-27-2021 Non-patient / Non-visit Dr. Alvarez Montanez Work Phone: [facility] Inpatient [facility]icians Start: 08-27-2021 Non-patient / Non-visit Dr. Alvarez Montanez Work Phone: [facility] Start: 08-26-2021 Non-patient / Non-visit Dr. Alvarez Montanez Work Phone: [facility] Inpatient Physicians Start: 08-26-2021 End: 08-31-2021 Evaluation and management of inpatient Dr. Alvarez Montanez Work Phone: [facility] 3 Start: 08-18-2021 End: 08-18-2021 Emergency department patient visit Dr. Alvarez Montanez Work Phone: [facility]-Emergency Department Start: 07-22-2021 End: 07-22-2021 Emergency department patient visit Dr. Alvarez Montanez Work Phone: [facility]-Emergency Department Start: 06-22-2021 Telephone encounter Alvarez briscoe MD Work Phone: [facility] [place] Comment on above: Patient Update Start: 03-14-2017 End: 03-14-2017 Ambulatory [facility] Procedures Date Procedure Procedure Detail Performing Clinician Start: 01-08-2025 Complete ultrasound of kidneys and bladder Dr. Ysabel Ruffin MD Work Phone: Start: 12-29-[address] Ysabel Ruffin MD Work Phone: Start: 12-29-[address] Ysabel Ruffin MD Work Phone: Comment on above: No monoclonality detected.Performed at: [place] [id number] Director: Eliseo Yañez PhD, Phone: [phone] Start: 12-29-2024 Urnls dip stick/tablet reagent auto [...] LPN Start: 03-29-2017 End: 03-30-2017 DMB Carlota Gregoroi CNP Work Phone: Start: 03-29-2017 End: 03-30-2017 Follow Up Appt 1 month Carlota Gregorio CNP Work Phone: Start: 03-29-2017 End: 03-30-2017 Pulmonary stress test/simple Carlota Gregorio PHARMACY GRADUATE INTERN Work Phone: Start: 03-29-2017 End: 03-29-2017 Dietary [...] MD Start: 01-02-2017 End: 01-03-2017 Referral to watcher lookout tower Get Guillory O Work Phone: Start: 01-02-2017 End: 01-30-2017 Referral to watcher lookout tower Get Guillory O Work Phone: Start: 11-10-2016 End: 12-15-2016 Pulmonary Function Test - complete Carlota Rachel Darline PHARMACY GRADUATE INTERN Work Phone: Start: 11-10-2016 End: 12-15-2016 Pulmonary Function Test - complete Carlota Gregorio PHARMACY GRADUATE INTERN Work Phone: Start: 10-27-2016 End: 12-15-2016 *MISC - Miscellaneous Lab Test #1 Ba Shea EDUCATION PROGRAM MANAGER Work Phone: Start: 10-27-2016 End: 12-15-2016 *MISC - Miscellaneous Lab Test #1 Ba Shea EDUCATION PROGRAM MANAGER Work Phone: Start: 10-19-2016 End: 04-06-2017 DMB Arin Shea EDUCATION PROGRAM MANAGER Work Phone: Start: 10-19-2016 End: 04-06-2017 Echo tthrc r-t 2d w/wom-mode compl spec&colr d Arin Shae EDUCATION PROGRAM MANAGER Work Phone: Start: 10-19-2016 End: 04-06-2017 Follow Up Appt 1 month Arin Shea EDUCATION PROGRAM MANAGER Work Phone: Start: 10-19-2016 End: 04-06-2017 Pulmonary stress test/simple Arin cardona EDUCATION PROGRAM MANAGER Work Phone: Start: 10-19-2016 End: 12-15-2016 Pulmonary stress test/simple Arin cardona EDUCATION PROGRAM MANAGER Work Phone: Bacteria identified in Blood by [...] SARS-CoV-2 & FLU Antigen (Rapid) Dr. Alvarez Montaenz Work Phone: Urine culture Dr. Alvarez Montanez Work Phone: Plan of Treatment Date Care Activity Detail Author Start: 08-30-2031 Screening for malign ant neoplasm of colon [facility] Start: 08-30-2026 Colonoscopy COLONOSCOPY [facility] Start: 08-30-2026 COLORECTAL CANCER SCREENING COLORECTAL CANCER SCREENING [facility] Start: 08-30-2026 Screening for malign ant neoplasm of colon [facility] Start: 12-20-2025 Tetanus vaccination Tetanus (T d or Tdap) Booster [facility] Start: 12-20-2025 Urine microalbumin profile [facility] Start: 11-23-2025 Lipid 1996 panel - S elisha or Plasma Lipid Screening [facility] Start: 11-23-2025 Lipid panel [facility] Start: 11-23-2025 LIPID SCREEN LIPID SCREEN [facility] Start: 01-14-2025 Patient referral [facility] Work Phone: Start: 12-29-2024 CBC W Auto Different ial panel - Blood [facility] Start: 12-29-2024 Comprehensive metabo lic 2000 panel - Serum or Plasma [facility] Start: 12-29-2024 Thyroid stimulating hormone measurement [facility] Start: 12-29-2024 Vitamin D, 25-hydrox y measurement [facility] Start: 11-20-2024 [facility] Start: 10-31-2024 Screening for malign ant neoplasm of breast Mammogram Screening [facility] Start: 08-22-2024 DIABETES SCREEN DIABETES SCREEN [facility] Start: 08-22-2024 Diabetes Screening Diabetes Screenin g [facility] Start: 08-15-2024 Patient discharge [facility] Start: 08-15-2024 Referral to service [facility] Start: 08-15-2024 Administration of bl ood product [facility] Start: 08-13-2024 Dual pressure sponta neous ventilation support [facility] Start: 08-13-2024 Following clinical p athway protocol [facility] Start: 08-13-2024 Assessment of risk o f venous thromboembolism [facility] Start: 08-13-2024 Continuous pulse oximetry [facility] Start: 08-13-2024 Fall prevention [facility] Start: 08-13-2024 Inhalation therapy procedure [facility] Start: 08-13-2024 Insertion of cathete r into peripheral vein [facility] Start: 08-13-2024 Introduction of urin claire catheter [facility] Start: 08-13-2024 Measuring intake and output [facility] Start: 08-13-2024 Oxygen therapy [facility] Start: 08-13-2024 Providing care accor ding to standard [facility] Start: 08-13-2024 Provision of activit y privileges [facility] Start: 08-13-2024 Referral to occupati onal therapist [facility] Start: 08-13-2024 Referral to service [facility] Start: 08-13-2024 [facility] Start: 08-12-[address] [facility] Start: 08-12-2024 Consultation [facility] Start: 05-12-2024 Cholesterol [Mass/vo lume] in Serum or Plasma Cholesterol [facility] Start: 03-23-2024 COVID-19 Vaccine ( season) COVID-19 Vaccine ( season) [facility] Start: 03-23-2024 Influenza vaccination Influenza Vacc ine (#1) [facility] Start: 07-02-2023 [facility] Start: 07-02-2023 Patient referral [facility] Work Phone: Start: 03-23-2023 Covid-19 Vaccine ( season) Covid-19 Vaccine () [facility] Start: 03-23-2023 Influenza vaccination [facility] Start: 02-20-2023 ANNUAL PCP TEAM UNDER BASTER RIZWAN DISEASE VISIT ANNUAL PCP TEAM CHRONIC DISEASE VISIT [facility] Start: 02-20-2023 BP CONTROLLED (<130/80) BP CON TROLLED (<130/80) [facility] Start: 02-20-2023 Mammography [facility] Start: 02-20-2023 Screening for malign ant neoplasm of breast [facility] Start: 01-30-2023 ANNUAL PCP TEAM UNDER BASTER RIZWAN DISEASE VISIT ANNUAL PCP TEAM CHRONIC DISEASE VISIT [facility] Start: 10-18-2022 BP CONTROLLED (<130/80) BP CON TROLLED (<130/80) [facility] Start: 08-27-2022 Measurement of occul t blood in single stool specimen FIT [facility] Start: 08-27-2022 Screening for malign ant neoplasm of colon FIT [facility] Start: 08-22-2022 ANNUAL PCP TEAM UNDER BASTER RIZWAN DISEASE VISIT ANNUAL PCP TEAM CHRONIC DISEASE VISIT [facility] Start: 08-22-2022 Basic metabolic 2000 panel - Serum or Plasma Basic Metabolic Panel [facility] Start: 08-22-2022 BP CONTROLLED (<130/80) BP CON TROLLED (<130/80) [facility] Start: 08-22-2022 Creatinine measurement Basic Metabol ic Panel [facility] Start: 08-09-2022 End: 08-09-2022 Telemedicine consultation with patient 08/09/2022 Telemedicine Psychiatry Tom Montelongo MD [address] [place] [address] [facility] Start: 06-06-2022 Patient discharge [facility] Work Phone: Start: 06-06-2022 Inhalation therapy procedure [facility] Work Phone: Start: 06-06-2022 End: 06-06-2022 [facility] Work Phone: Start: 06-06-2022 Referral to occupati onal therapist [facility] Work Phone: Start: 06-06-2022 Referral to service [facility] Work Phone: Start: 06-06-2022 Oxygen therapy [facility] Work Phone: Start: 06-06-2022 Following clinical p athway protocol [facility] Work Phone: Start: 06-06-2022 Ambulation without limitation [facility] Work Phone: Start: 06-06-2022 Assessment of risk o f venous thromboembolism [facility] Work Phone: Start: 06-06-2022 Insertion of cathete r into peripheral vein [facility] Work Phone: Start: 06-06-2022 Providing care accor ding to standard [facility] Work Phone: Start: 06-06-2022 End: 06-06-2022 Blood culture [facility] Work Phone: Start: 06-06-2022 Verification routine [facility] Work Phone: Start: 06-06-[address] [facility] Work Phone: Start: 06-06-2022 [facility] Work Phone: Start: 06-06-2022 Patient referral to dietitian [facility] Work Phone: Start: 06-05-2022 Assay of iron ASSAY OF IRON [facility] Work Phone: Start: 06-05-2022 Blood count complete auto&auto difrntl wbc COMPLETE CBC W/AUTO DIFF WBC [facility] Work Phone: Start: 06-05-2022 Collection venous bl ood venipuncture ROUTINE VENIPUNCTURE [facility] Work Phone: Start: 06-05-2022 Comprehensive metabo lic panel COMPREHEN METABOLIC PANEL [facility] Work Phone: Start: 06-05-2022 Iron binding capacity IRON BINDING T EST [facility] Work Phone: Start: 05-10-2022 End: 05-10-2022 Telemedicine consultation with patient 05/10/2022 Telemedicine Psychiatry Tom Montelongo MD [address] [place], [place] [id number] [facility] Start: 04-22-2022 Influenza vaccination Influenza Vacc ine (#1) [facility] Start: 04-01-2022 [facility] Work Phone: Start: 03-23-2022 Influenza vaccination INFLUENZA (#1) [facility] Start: 03-16-2022 Patient referral [facility] Work Phone: Start: 03-06-2022 Consultation [facility] Work Phone: Start: 02-24-2022 Screening for malign ant neoplasm of breast Mammography [facility] Start: 02-08-2022 End: 02-08-2022 Telemedicine consultation with patient 02/08/2022 Telemedicine Psychiatry Tom Montelongo MD [address] [place] [address] [facility] Start: 01-31-2022 End: 04-02-2022 CBC panel - Blood by Automated count CBC Lab Routine Anemia due to blood loss Expected: 01/31/2022, Expires: 04/02/2022 [facility] Work Phone: Comment on above: Expected: 01/31/2022 , Expires: 04/02/2022 Start: 01-19-2022 Patient discharge [facility] Work Phone: Start: 01-18-2022 End: 01-19-2022 [facility] Work Phone: Start: 01-18-2022 Dual pressure sponta neous ventilation support [facility] Work Phone: Start: 01-18-2022 Administration of bl ood product [facility] Work Phone: Start: 01-18-2022 Following clinical p athway protocol [facility] Work Phone: Start: 01-18-2022 Application of intermittent pneumatic compression device [facility] Work Phone: Start: 01-18-2022 Assessment of risk o f venous thromboembolism [facility] Work Phone: Start: 01-18-2022 Fall prevention [facility] Work Phone: Start: 01-18-2022 Incentive spirometry [facility] Work Phone: Start: 01-18-2022 Inhalation therapy procedure [facility] Work Phone: Start: 01-18-2022 Insertion of cathete r into peripheral vein [facility] Work Phone: Start: 01-18-2022 Introduction of urin claire catheter [facility] Work Phone: Start: 01-18-2022 Measuring intake and output [facility] Work Phone: Start: 01-18-2022 Oxygen therapy [facility] Work Phone: Start: 01-18-2022 Providing care accor ding to standard [facility] Work Phone: Start: 01-18-2022 Provision of activit y privileges [facility] Work Phone: Start: 01-18-2022 End: 01-18-2022 Referral to occupational therapist [facility] Work Phone: Start: 01-18-2022 End: 01-18-2022 Referral to service [facility] Work Phone: Start: 01-18-2022 Verification routine [facility] Work Phone: Start: 01-18-[address] [facility] Work Phone: Start: 01-15-2022 [facility] Work Phone: Start: 12-12-2021 Immunofixj electroph oresis other fluids IMMUNFIX E-PHORSIS/URINE/CSF [facility] Work Phone: Start: 11-23-2021 Hemoglobin A1c measurement Hemoglobi n A1C [facility] Start: 11-23-2021 Mammography MAMMOGRAM [facility] Start: 11-03-2021 Bacteria identified in Urine by Culture Urine Culture [facility] Work Phone: Start: 10-19-2021 End: 11-18-2022 Ct abdomen & pelvis w/o contrst 1/> body re CT UROGRAM WO/W IVCON Radiology Routine Gross hematuria Expected: 10/19/2021, Expires: 11/18/2022 [facility] Work Phone: Comment on above: Expected: 10/19/2021 , Expires: 11/18/2022 Start: 10-18-2021 End: 12-18-2021 Bacteria identified in Urine by Culture URINE CULTURE Microbiology Routine Gross hematuria Expected: 10/18/2021, Expires: 12/18/2021 [facility] Work Phone: Comment on above: Expected: 10/18/2021 , Expires: 12/18/2021 Start: 10-18-2021 End: 12-18-2021 CREATININE BLD CREATININE BLD Lab Routine Gross hematuria Expected: 10/18/2021, Expires: 12/18/2021 [facility] Work Phone: Comment on above: Expected: 10/18/2021 , Expires: 12/18/2021 Start: 09-22-2021 Catheterization of vein [facility] Work Phone: Start: 03-31-2021 COVID-19 Vaccine (3 - Booster for Pfizer series) COVID-19 Vaccine (3 - Booster for Pfizer series) [facility] Start: 03-22-2021 COVID-19 VACCINE (5 - Booster) COVID-19 VACCINE (5 - Booster) [facility] Start: 03-22-2021 COVID-19 VACCINE (5 - Pfizer series) COVID-19 VACCINE (5 - Pfizer series) [facility] Start: 12-24-2020 COVID-19 Vaccine (3 - Booster for Pfizer series) COVID-19 Vaccine (3 - Booster for Pfizer series) [facility] Start: 2020 Influenza vaccination LUNG CANCER SC REENING [facility] Start: 05-12-2020 Thyroid stimulating hormone measurement TSH [facility] Start: 08-08-2017 End: 08-08-2017 Appointment Appointment [facility] Work Phone: Start: 08-01-2017 End: 08-01-2017 Appointment Appointment [facility] Work Phone: Start: 05-09-2017 End: 05-09-2017 [facility] Work Phone: Start: 05-09-2017 End: 05-09-2017 Community Recreation Programmer Community Recreation Programmer [facility] Nutrition Services, [address], [place], [address] [facility] Work Phone: Start: 05-09-2017 End: 05-09-2017 Follow Up Appt 3 months Follow Up Appt 3 months [facility] Work Phone: Start: 05-09-2017 End: 05-09-2017 Pulmonary Function Test - complete Pulmonary Function Test - complete [facility] Work Phone: Start: 05-09-2017 End: 05-09-2017 Appointment Appointment [facility] Work Phone: Start: 04-11-2017 End: 04-11-2017 Appointment Appointment [facility] Work Phone: Start: 03-29-2017 End: 03-30-2017 DMB DMB [facility] Work Phone: Start: 03-29-2017 End: 03-30-2017 Follow Up Appt 1 month Follow Up Appt 1 month [facility] Work Phone: Start: 03-29-2017 End: 03-30-2017 Pulmonary stress test/simple Pulmonary stress testing; simple (eg, 6-minute walk) [facility] Work Phone: Start: 03-29-2017 End: 03-29-2017 Appointment [facility] Work Phone: Start: 03-29-2017 End: 03-29-2017 DMB DMB [facility] Work Phone: Start: 03-29-2017 End: 03-29-2017 Follow Up Appt 1 month Follow Up Appt 1 month [facility] Phone: Start: 03-29-2017 End: 03-29-2017 Pulmonary stress test/simple Pulmonary stress testing; simple (eg, 6-minute walk) [facility] Phone: Start: 01-18-2017 End: 01-18-2017 Appointment Appointment [facility] Phone: Start: 01-18-2017 End: 01-18-2017 24 hour holter monitor 24 hour holter monitor [facility] Phone: Start: 01-18-2017 End: 01-18-2017 Ecg routine ecg w/least 12 lds w/i&r EKG (In office) [facility] Phone: Start: 01-18-2017 End: 01-18-2017 Follow Up Appt 6 months Follow Up Appt 6 months [facility] Phone: Start: 01-18-2017 End: 01-18-2017 PFM PFM [facility] Phone: Start: 01-18-2017 End: 01-18-2017 24 hour holter monitor 24 hour holter monitor [facility] Phone: Start: 01-18-2017 End: 01-18-2017 Electrocardiogram, complete EKG (In office) [facility] Phone: Start: 01-18-2017 End: 01-18-2017 Follow Up Appt 6 months Follow Up Appt 6 months [facility] Phone: Start: 01-18-2017 End: 01-18-2017 PFM PFM [facility] Phone: Start: 01-02-2017 End: 01-02-2017 Cardiac Referral Cardiac Referral [address] [place] [address], [address], [place], [address] [facility] Work Phone: Start: 01-02-2017 End: 01-02-2017 [facility] Work Phone: Start: 01-02-2017 End: 01-02-2017 Follow Up Appt 3 months Follow Up Appt 3 months [facility] Work Phone: Start: 01-02-2017 End: 01-02-2017 Pulmonary stress test/simple Pulmonary stress testing; simple (eg, 6-minute walk) [facility] Work Phone: Start: 01-02-2017 End: 01-02-2017 Appointment Appointment [facility] Work Phone: Start: 01-02-2017 End: 01-12-2017 Cardiac Referral [facility] Work Phone: Start: 01-02-2017 End: 01-02-2017 [facility] Work Phone: Start: 01-02-2017 End: 01-02-2017 Follow Up Appt 3 months Follow Up Appt 3 months [facility] Work Phone: Start: 01-02-2017 End: 01-02-2017 Pulmonary stress test/simple Pulmonary stress testing; simple (eg, 6-minute walk) [facility] Work Phone: Start: 11-10-2016 End: 12-15-2016 Pulmonary Function Test - complete Pulmonary Function Test - complete [facility] Work Phone: Start: 11-10-2016 End: 12-15-2016 Pulmonary Function Test - complete Pulmonary Function Test - complete [facility] Work Phone: Start: 10-27-2016 End: 12-15-2016 *MISC - Miscellaneous Lab Test #1 *MISC - Miscellaneous Lab Test #1 [facility] Work Phone: Start: 10-27-2016 End: 12-15-2016 *MISC - Miscellaneous Lab Test #1 *MISC - Miscellaneous Lab Test #1 [facility] Phone: Start: 10-19-2016 End: 04-06-2017 ASHLEY RAMIREZ [facility] Phone: Start: 10-19-2016 End: 04-06-2017 Echo tthrc r-t 2d w/wom-mode compl spec&colr d Echo Complete with Color Flow [facility] Phone: Start: 10-19-2016 End: 04-06-2017 Follow Up Appt 1 month Follow Up Appt 1 month [facility] Phone: Start: 10-19-2016 End: 12-15-2016 Pulmonary stress test/simple Pulmonary stress testing; simple (eg, 6-minute walk) [facility] Phone: Start: 10-19-2016 End: 10-19-2016 ASHLEY RAMIREZ [facility] Phone: Start: 10-19-2016 End: 10-19-2016 Follow Up Appt 1 month Follow Up Appt 1 month [facility] Phone: Start: 10-19-2016 End: 12-15-2016 Pulmonary stress test/simple Pulmonary stress testing; simple (eg, 6-minute walk) [facility] Phone: Start: 10-19-2016 End: 10-19-2016 Tte w/doppler, complete Echo Complete with Color Flow [facility] Phone: Start: 03-11-2016 PNEUMOCOCCAL (2 - PCV) PNEUMOCOCCAL (2 - PCV) [facility] Start: 03-11-2016 Pneumococcal vaccination [facility] Start: 10-22-2015 Influenza vaccination LUNG CANCER [place] KAYLA [facility] Start: 10-22-2015 Shingles (RZV) Vacci ne (1 of 2) Shingles (RZV) Vaccine (1 of 2) [facility] Start: 10-22-2015 SHINGRIX VACCINE (1 of 2) JEFFERS GRIX VACCINE (1 of 2) [facility] Start: 2010 COLOGUARD (FIT-DNA) COLOGUARD (FIT-D NA) [facility] Start: [address] COLONOGRAPHY [facility] Start: 2010 FECAL OCCULT BLOOD FECAL OCCULT BLOO D [facility] Start: 2010 Screening for malign ant neoplasm of colon [facility] Start: 2010 SIGMOIDOSCOPY SIGMOIDOSCOPY [facility] Start: 10-22-1995 Zoledronic acid therapy ALPHA- 1 ANTITRYPSIN DEFICIENCY SCREENING [facility] Start: 1984 Hepatitis A (HAV) Va ccine (optional start 19+ years) Hepatitis A (HAV) Vaccine (optional start 19+ years) [facility] Start: 1984 Hepatitis B vaccination Hepati tis B (HBV) Vaccine (1 of 3 - 19+ 3-dose series) [facility] Start: 1984 Hepatitis B Vaccine (1 of 3 - 19+ 3-dose series) Hepatitis B Vaccine (1 of 3 - 19+ 3-dose series) [facility] Start: 10-22-1983 BP CONTROLLED (<130/80) BP CON TROLLED (<130/80) [facility] Start: 10-22-1983 Hepatitis C screening Hepatitis C An tibody [facility] Start: 10-22-1983 HIV SCREENING HIV SCREENING [facility] Start: 10-22-1983 HIV screening HIV Screening [facility] Start: 10-22-1983 SPIROMETRY SPIROMETRY [facility] Start: 1965 HEPATITIS B (1 of 3 - 3-dose series) HEPATITIS B (1 of 3 - 3-dose series) [facility] Start: 1965 Hepatitis B Vaccine (1 of 3 - 3-dose series) Hepatitis B Vaccine (1 of 3 - 3-dose series) [facility] Alanine aminotransfe rase [Enzymatic activity/volume] in Serum or Plasma [facility] Albumin [Mass/volume ] in Serum or Plasma [facility] Alkaline phosphatase [Enzymatic activity/volume] in Serum or Plasma [facility] Anion gap in Serum o r Plasma [facility] Bacteria identified in Blood by Culture Blood Culture [facility] Work Phone: Bacteria identified in Urine by Culture Urine Culture [facility] Work Phone: Bilirubin, total measurement [facility] Blood ammonia measurement [facility] Blood culture [facility] Work Phone: BUN/Creatinine ratio [facility] Calcium [Mass/volume ] in Serum or Plasma [facility] Carbon dioxide, tota l [Moles/volume] in Central venous blood [facility] Comprehensive metabo lic 2000 panel - Serum or Plasma [facility] Creatinine [Mass/vol ume] in Serum or Plasma [facility] Cystourethroscopy CYSTO.PANENDO Procedures Routine Gross hematuria Ordered: 10/18/2021 [facility] Work Phone: Comment on above: Ordered: 10/18/2021 CYTOLOGY NON-SPRING FORMER 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 CYTOLOGY NON-GY N Lab Routine Gross hematuria 10/18/2021 2:15 PM EDT [facility] Work Phone: End: 03-22-2023 Dup-scan xtr veins unilateral/limited study US DVT LOWER LT Radiology Routine Left leg pain 1 Occurrences starting 02/20/2022 until 03/22/2023 [facility] Work Phone: Comment on above: 1 Occurrences starti ng 02/20/2022 until 03/22/2023 DXA Bone [Mass/Area] Bone density [facility] Erythrocyte mean corpuscular volume determination [facility] Ferritin [Mass/volum e] in Serum or Plasma [facility] Work Phone: Glucose [Mass/volume ] in Serum or Plasma [facility] Hematocrit [Volume Fraction] of Blood [facility] Hemoglobin [Mass/vol ume] in Blood [facility] Inhalation bronchial challenge testing [facility] Iron [Mass/mass] in Unspecified specimen [facility] Work Phone: Iron and Iron bindin g capacity panel - Serum or Plasma [facility] Work Phone: Iron saturation [Mas s Fraction] in Serum or Plasma [facility] Work Phone: Leukocytes [#/volume ] in Blood [facility] Mean corpuscular hemoglobin concentration determination [facility] Mean corpuscular hemoglobin determination [facility] Measurement of renal function [facility] Measurement of substance [facility] MG Breast - bilatera l Screening [facility] Neutrophil count [facility] Neutrophil percent differential count [facility] Patient Education [facility] Work Phone: Patient referral [facility] Work Phone: Platelets [#/volume] in Blood [facility] POST VOID RESIDUAL POST VOID RES IDUAL Procedures Routine Recurrent UTI Ordered: 10/18/2021 [facility] Work Phone: Comment on above: Ordered: 10/18/2021 Potassium measurement [facility] Red blood cell count [facility] Red cell distributio n width determination [facility] Serum chloride measurement [facility] Sodium measurement [facility] Total protein measurement [facility] Urea nitrogen [Mass/volume] in Serum or Plasma [facility] Urinalysis complete panel - Urine [facility] Urinalysis complete panel - Urine [facility] US Kidney - bilatera l and Urinary bladder [facility] Vitamin B12 measurement [facility] Work Phone: [facility] Immunizations Immunization Date Immunization Notes Care Provider [facility] 07-02-2023 influenza, injectabl e, quadrivalent, preservative free Dr. Marilee Yu [facility] 07-02-2023 influenza virus vaccine, unspecified formulation Imani Geiger MD Work Phone: [facility] 06-05-2022 influenza, injectabl e, quadrivalent, preservative free Dr. Marilee Yu [facility] 06-05-2022 influenza, seasonal, injectable Dr. Alvarez Montanez Work Phone: [facility] Work Phone: 05-12-2021 tuberculin skin test ; purified protein derivative solution, intradermal Judy Gomez DO Work Phone: [facility] 04-25-2021 influenza, injectabl e, quadrivalent, preservative free Dr. Marilee Altmanlynda [facility] 04-25-2021 influenza, seasonal, injectable Dr. Alvarez Montanez Work Phone: [facility] 04-25-2021 influenza, seasonal, injectable, preservative free Judy Gomez DO Work Phone: [facility] 04-25-2021 Seasonal, quadrivale nt, recombinant, injectable influenza vaccine, preservative free Dr. Hunt [facility] 04-25-2021 influenza virus vaccine, unspecified formulation Tom Montelongo MD Work Phone: [facility] 01-25-2021 Covid (Pfizer) Dr. Alvarez Montanez Work Phone: [facility] 01-04-2021 Covid (Pfizer) Dr. Alvarez Montanez Work Phone: [facility] 11-23-2020 Hemoglobin A1C Judy Arroyoamadou gonzalo DO Work Phone: [facility] 10-29-2020 COVID-19 vaccine, ag e 12+ yr (PFIZER-BIONTECH - PURPLE TOP) Alvarez Montanez MD Work Phone: [facility] Work Phone: 10-08-2020 COVID-19 vaccine, ag e 12+ yr (PFIZER-BIONTECH - PURPLE TOP) Alvarez Montanez MD Work Phone: [facility] Work Phone: 05-13-2019 influenza, injectabl e, quadrivalent, contains preservative Alvarez Montanez MD Work Phone: [facility] 05-13-2019 influenza, injectabl e, quadrivalent, preservative free Dr. Hunt [facility] 05-13-2019 influenza, seasonal, injectable Dr. Alvarez Montanez Work Phone: [facility] 05-06-2018 influenza, injectabl e, quadrivalent, contains preservative Alvarez Montanez MD Work Phone: [facility] Work Phone: 05-06-2018 influenza, injectabl e, quadrivalent, preservative [facility] 05-06-2018 influenza, seasonal, injectable Dr. Alvarez Montanez Work Phone: [facility] 04-22-[address] Alvarez Montanez Work Phone: [facility] 04-22-2017 influenza, seasonal, injectable, preservative free Judy Gomez DO Work Phone: [facility] 04-02-2017 influenza, injectabl e, quadrivalent, contains preservative Alvarez Montanez MD Work Phone: [facility] 04-02-2017 influenza, injectabl e, quadrivalent, preservative free Dr. Hunt [facility] 04-02-2017 influenza, seasonal, injectable Dr. Alvarez Montanez Work Phone: [facility] 06-13-2016 influenza, injectabl e, quadrivalent, contains preservative Alvarez Montanez MD Work Phone: [facility] 06-13-2016 influenza, injectabl e, quadrivalent, preservative free Dr. Hunt [facility] 06-13-2016 influenza, seasonal, injectable Dr. Alvarez Montanez Work Phone: [facility] 05-23-[address] Alvarez Montanez Work Phone: [facility] 05-23-2016 influenza, seasonal, injectable, preservative free Judy Gomez DO Work Phone: [facility] 12-21-2015 tetanus and diphther ia toxoids, adsorbed, preservative free, for adult use (2 Lf of tetanus toxoid and 2 Lf of diphtheria toxoid) Dr. Alvarez Montanez Work Phone: [facility] 12-21-2015 tetanus and diphther ia toxoids, adsorbed, preservative free, for adult use (5 Lf of tetanus toxoid and 2 Lf of diphtheria toxoid) Alvarez Montanez MD Work Phone: [facility] 06-04-2015 influenza, injectabl e, quadrivalent, preservative free Judy Zgodinski DO Work Phone: [facility] 06-04-2015 influenza, seasonal, injectable Dr. Alvarez Montanez Work Phone: [facility] 03-28-2015 influenza, injectabl e, quadrivalent, preservative free Dr. [facility] 03-28-2015 influenza, seasonal, injectable Dr. Alvarez Montanez Work Phone: [facility] 03-28-2015 influenza, seasonal, injectable, preservative free Judy Zgodinski DO Work Phone: [facility] 03-28-2015 Seasonal, quadrivale nt, recombinant, injectable influenza vaccine, preservative free Dr. [facility] 03-11-2015 pneumococcal polysaccharide vaccine, 23 valent Alvarez Montanez MD Work Phone: [facility] Work Phone: 03-11-2015 tetanus toxoid, redu kelsey diphtheria toxoid, and acellular pertussis vaccine, adsorbed Alvarez Montanez MD Work Phone: [facility] Work Phone: 05-07-2014 influenza, seasonal, injectable, preservative free Judy Zgodinski DO Work Phone: [facility] 05-07-2014 pneumococcal polysaccharide vaccine, 23 valpetar Montanez MD Work Phone: [facility] 06-03-2013 influenza, seasonal, injectable, preservative free Judy Zgodinski DO Work Phone: [facility] 06-03-2013 pneumococcal polysaccharide vaccine, 23 valpetar Montanez MD Work Phone: [facility] 04-04-2012 pneumococcal polysaccharide vaccine, 23 valent Alvarez Montanez MD Work Phone: [facility] Payers Date Payer Category Payer Self-pay [id number] 2019 Medicaid MEDICAID [facility] MEDICAID [id number] 2019-Present [phone] [address] [place] [address] Medicaid [id number] 2019 Medicaid [id number] 2017 Medicaid [id number] 1965 Unknown [id number] 2..840.1.592925.3.579.2.732 1965 Unknown [id number] 2.840.1.544795.3.579.2.732 1965 Unknown [id number] 2..840.1.032282.3.579.2.732 1965 Unknown [id number] 2..840.1.207169.3.579.2.732 Unknown [id number] 2.16.840.1.295401.3.579.2.462 Unknown [id number] 2.16.840.1.753228.3.579.2.462 Unknown [id number] 2.16.840.1.221821.3.579.2.462 Unknown [id number] 2.16.840.1.597846.3.579.2.462 Unknown [id number] 2.16.840.1.356542.3.579.2.462 Unknown [id number] 2.16.840.1.711548.3.579.2.462 Unknown [id number] 2.16.840.1.066651.3.579.2.462 Unknown [id number] 2.16.840.1.010206.3.579.2.462 Unknown [id number] 2.16.840.1.599042.3.579.2.462 Unknown [id number] 2.16.840.1.709149.3.579.2.462 Unknown [id number] 2.16.840.1.513327.3.579.2.462 Unknown [id number] 2.16.840.1.280700.3.579.2.462 Unknown [id number] 2.16.840.1.974391.3.579.2.462 Unknown [id number] 2.16.840.1.605369.3.579.2.462 Unknown [id number] 2.840.1.797606.3.579.2.462 Unknown [id number] 2.16.840.1.426004.3.579.2.462 Unknown [id number] 2.16840.1.159812.3.579.2.462 Unknown [id number] 2.16.840.1.814070.3.579.2.462 Unknown [id number] 2.16.840.1.644888.3.579.2.462 Unknown [id number] 2.16.840.1.511606.3.579.2.462 Unknown [id number] 2.16.840.1.227180.3.579.2.462 Unknown [id number] 2.16.840.1.890820.3.579.2.462 Unknown [id number] 2.16.840.1.151828.3.579.2.462 Unknown [id number] 2.16.840.1.248777.3.579.2.462 Unknown [id number] 2.16.840.1.092879.3.579.2.462 Social History Date Type Detail Facility Start: 01-07-2021 End: 11-20-2024 Tobacco smoking status NHIS Ex-smoker [facility] End: 01-21-2016 History of tobacco use Current smoker [facility] End: 01-21-2016 History of tobacco use Cigarette Smoker [facility] Start: 01-29-2020 End: 01-07-2021 Cigarettes smoked current (pack per day) - Reported 1 [facility] Start: 04-30-2018 End: 01-07-2021 Tobacco use and exposure Smokeless tobacco non-user [facility] Start: 01-29-2020 End: 08-22-2021 Alcohol intake Current non-drinker of alcohol (finding) [facility] Start: 1965 Sex Assigned At Female C [facility] Start: 10-01-2021 End: 02-20-2022 Exposure to SARS-CoV-2 (event) Not sure [facility] Start: 10-10-2021 End: 07-02-2023 Tobacco smoking status NHIS Unknown if ever smoked [facility] Start: 03-04-2018 None [facility] Start: 09-06-2019 Spouse/ Signif icant Other [facility] Start: 03-04-2018 Non-smoker [facility] Start: 01-01-2018 Tobacco Comment 1-2 cigarettes daily [facility] Start: 04-30-2018 Tobacco smoking stat us HIIS Light tobacco smoker [facility] Start: 1965 Sex Assigned At Not on file [facility] Start: 01-29-2020 End: 01-30-2022 Tobacco use panel [facility] Adult Depression Screening Assessment 0 [facility] Start: 01-29-2020 Gender identity Identifies as female gender (finding) [facility] (I/We) worried wheth er (my/our) food would run out before (I/we) got money to buy more. Never true [facility] Start: 01-25-2015 Sex Female (finding) [facility] Goals Date Patient Goal Desired Activity [...] Assessment Result Facility 08-15-2024 Functional status Chair [facility] Work Phone: 06-06-2022 Functional status Activity Abili ty Unable to Assess [facility] Work Phone: 01-19-2022 Functional status Ambulates;Bathroom Priv ilege [facility] Work Phone: 08-31-2021 Functional status Assistive Maia sandra Rolling Walker [facility] Work Phone: 08-30-2021 Functional status Up ad carley;Bedside Commo de [facility] Work Phone: Mental Status Date Assessment Result Facility 08-15-2024 Cognitive function Voice/Name [facility] Work Phone: 07-02-2023 Cognitive function Level Of Cons ciousness Awake;Alert;Appropriate [facility] Work Phone: 06-06-2022 Cognitive function Voice/Name [facility] Work Phone: 06-05-2022 Cognitive function Level Of Cons ciousness Awake;Alert;Appropriate;Follow s Commands [facility] Work Phone: 03-15-2022 Cognitive function Level Of Cons ciousness Awake;Alert;Appropriate;Follow s Commands [facility] Work Phone: 01-19-2022 Cognitive function Voice/Name [facility] Work Phone: 01-17-2022 Cognitive function Level Of Cons ciousness Awake;Alert;Appropriate;Follow s Commands [facility] Work Phone: 01-10-2022 Cognitive function Level Of Cons ciousness Awake;Alert;Appropriate;Follow s Commands [facility] Work Phone: 11-03-2021 Cognitive function Voice/Name [facility] Work Phone: 08-30-2021 Cognitive function Voice/Name [facility] Work Phone: Clinical Notes 01-10-2021 to 01-09-2025 Note Date & Type Note Facility 01-09-2025 Radiology Diagnostic study note [facility] Imaging Services [address] [place], [place] [id number] Kidney and Bladder MR#: [id number] Acct: [id number] Name: FELISHA PERRIN Rep #: [id number] : 1965 F 59 From: Cassidy Herndon MD PCP: Dr. Ysabel Ruffin MD Status: REG CLI Study:Kidney and Bladder Date of Exam: 0 01/08/25 Exam# [id number] Ordering Dr: Ysabel Ruffin MD PROCEDURE: KIDNEY [...] changes Under filled urinary bladder. Reading Location: [place] [address] CC: Dr. 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 December 29, 2024 8 :55am Anxiety and depression inactive [facility] 2024 8:55am Falls frequently inactive December 8:55am History of blood clots noneactive [facility] 2024 8:55am Hematuria noneactive December 29, 2024 8:55am Chronic pain noneactive December 29 8:55am Essential hypertension noneactive [facility] 2024 8:55am Prediabetes noneactive December 29 8:55am Chronic anemia noneactive December 29, 2024 8:55am Iron deficiency noneactive December 29, 2024 8:55am [facility] Work Phone: 1(995) 278-840801-24-[address] [facility]01-22-2025 Evaluation note* Diagnosis Onset Date Resolution Status Admit Date Complicated laceration of hand acute August 12 11:51pm Parkinson's disease acute 2024 11:51pm Syncope resolved August 12, 2024 11:51pm TIA (transient ischemic attack) resolved August 12 11:51pm Complicated laceration of hand acute August 28 3:19pm Head injury acute November 14, 025 7:21am Essential hypertension noneactive [facility] 2024 7:21am [facility] Work Phone: 1(925) 828-772112-02-[address] [facility]06-24-2024 NoteHNO ID: [id number] Author: DEMARIO MARTINEZ RN Service: ? Author Type: Registered Nurse Type: Progress Notes Filed: 01/16/2024 18:50 Note Text: CDM Telephonic Outreach Provider Action/FYI Pt noted she has changed to [facility] associated PCP , Pt is aware to contact PCP for any changes in symptyoms or needs. Contacted for: Routine Telephonic Outreach Contact made with patient: Yes Patient identified by name and date of . Discussed care with patient Demario Martinez RN January 14, 2024 6:15 [facility]06-24-2024 History of Present illness Narrative* Demario Martinez RN - 01/14/2024 6:15 PM EDT CDM Telephonic Outreach Provider Action/FYI Pt noted she has changed to [facility] associated PCP , Pt is aware [...] has an Appt coming up with a [place] Physician in [place], unsure who it is will contact her sister to get the name for PCC. SDH, Goals updated Contacted for: Engagement Contact made with patient: Yes Patient identified by name and date of . Discussed care with patient Outcomes: Patient forgot, reminder given Are you experiencing any new or worsening symptoms you need to talk about today? No Based on kaiawhina, the following disposition is advised: No symptoms or symptoms present, not severe. Routed to: No Action Needed CURTIS Education Provided this Outreach: No Demario Martinez RN January 07, 2024 12:51 PM [facility] NoteHNO ID: [id number] Author: DEMARIO MARTINEZ RN Service: ? Author Type: Registered Nurse Type: Progress Notes Filed: 01/16/2024 18:50 Note Text: CDM Telephonic Outreach Provider Action/FYI CDM:COPD Call back to Pt as requested to verify current PCP, unable to leave a message. Contacted for: Engagement Contact made with patient: No, unable to leave message. Will reattempt call Demario Martinez RN January 11, 2024 1:31 [facility]06-17-2024 NoteHNO ID: [id number] Author: DEMARIO MARTINEZ RN Service: ? Author Type: Registered Nurse Type: Progress Notes Filed: 01/16/2024 18:50 Note Text: CDM Telephonic Outreach Provider Action/FYI CDM:COPD Pt denies symptom changes, concerns or needs. Instructed on follow up with PCP/ specialist every 6 months, Pt noted she has an Appt coming up with a [place] Physician in [place], unsure who it is will contact her sister to get the name for PCC. SDH, Goals updated Contacted for: Engagement Contact made with patient: Yes Patient identified by name and date of . Discussed care with patient Outcomes: Patient forgot, reminder given Are you experiencing any new or worsening symptoms you need to talk about today? No Based on kaiawhina, the following disposition is advised: No symptoms or symptoms present, not severe. Routed to: No Action Needed CURTIS Education Provided this Outreach: No Demario Martinez RN January 07, 2024 12:51 [facility]06-17-2024 NotePatient Outreach ([facility]) FELISHA PERRIN ([id number]) 1965 F Date Time Provider Department 01/07/24 DEMARIO MARTINEZ During your visit today, we recorded the following information about you: Demario Martinez RN 01/16/2024 6:50 PM Signed CDM Telephonic Outreach Provider Action/FYI CDM:COPD Pt denies symptom changes, concerns or needs. Instructed on follow up with PCP/ specialist every 6 months, Pt noted she has an Appt coming up with a [place] Physician in [place], unsure who it is will contact her sister to get the name for PCC. SDH, Goals updated Contacted for: Engagement Contact made with patient: Yes Patient identified by name and date of . Discussed care with patient Outcomes: Patient forgot, reminder given Are you experiencing any new or worsening symptoms you need to talk about today? No Based on kaiawhina, the following disposition is advised: No symptoms [...] noted she has changed to [facility] associated PCP , Pt is aware [...] Neurologist. - LORazepam (ATIVAN) 0.5 mg From [employer]. - meloxicam (MOBIC) 7.5 mg tablet Take [...] 1 tablet by mouth twice daily. Per [facility]. - Mirtazapine (REMERON) 7.5 mg tablet Take 1 tablet by mouth daily at bedtime. Per [facility]. - acetaminophen (TYLENOL EXTRA STRENGTH) 500 [...] [K21.9] Anxiety [F41.9] Arthriti (more content not included)...[facility]04-26-2024 Note HNO ID: [id number] Author: DEMARIO MARTINEZ RN Service: ? Author [...] to talk about today? No Based on kaiawhina, the following disposition is advised: No symptoms or symptoms present, not severe. Routed to: No Action Needed CURTIS Education Provided this Outreach: No Demario Martinez RN November 16, 2023 3:03 [facility]04-26-2024 History of Present illness Narrative* Demario Martinez [...] to talk about today? No Based on kaiawhina, the following disposition is advised: No symptoms or symptoms present, not severe. Routed to: No Action Needed CURTIS Education Provided this Outreach: No Demario Martinez RN November 16, 2023 3:03 PM [facility] NotePatient Outreach ([facility]) FELISHA PERRIN ([id number]) 1965 F Date Time Provider Department 11/16/23 [...] to talk about today? No Based on kaiawhina, the following disposition is advised: No symptoms [...] - oxyCODONE-acetaminophen (PERCOCET) 5-325 mg tablet From [employer] - venlafaxine ER (EFFEXOR XR) 150 mg [...] 1 tablet by mouth twice daily. Per [facility]. - Mirtazapine (REMERON) 7.5 mg tablet Take 1 tablet by mouth daily at bedtime. Per [facility]. - acetaminophen (TYLENOL EXTRA STRENGTH) 500 mg tablet Take 1,000 mg by mouth every 8 hours as needed. - COMPOUNDED PRESCRIPTION PORTABLE OXYGEN VIA NASAL CANNULA. 2 LPM FOR USE WITH EXERTION, ACTIVITY. Dx:R09.02; J44.9; J98.4 Problem List As Of Date 11/16/2023 Noted Resolved Abdominal pain [R10.9] 04/03/2012 07/07/2015 UTI (urinary tract infection) [N39.0] 04/03/2012 12/21/2015 Stroke ([facility]) [I63.9] 04/03/2012 12/21/2015 Obesity [E66.9] 04/03/2012 07/07/2015 [...] hyperlipidemia [E78.2] 11/17/2016 Pulmonary hypertension, secondary (HCC) [WCW014*11/17/2016 History of DVT of lower extremity [Z86.718] 12/28/2016 Colonic mass [K63.89] 03/02/2017 09/26/2017 Obesity, Class III, BMI >= 40 [E66.01] 01/01/2018 Restrictive lung disease secondary to obesity [*08 (more content not included)...[facility]04-12-2024 Miscellaneous Notes* Letter - Coordinator, Mammography - 11/02/2023 7:27 AM EDT November 02, 2023 PID: [id number] Felisha Perrin [id number] [address] [place] [id number] Dear Ms. Perrin, We are pleased to [...] report will be kept on file at [facility] as part of your permanent medical record and are available for your continuing care. Thank you for allowing us to help in meeting your health care needs. Sincerely, Dr. Brothers Interpreting Radiologist [facility] (Normal over 40) documented in [facility]Cl[facility]04-[facility] History of Present illness Narrative* Stephanie [...] PATIENT PRESENTS WITH AN IMPLANTABLE OR ATTACHED SERVICE OR WORK DISPATCHER CHIEF: No RADIOLOGY DEPARTMENT: Mammography PERIPHERAL IV DATA: Not applicable SIGNED BY: Garth Brandon November 01, 2023 1:19 PM documented in this encounterCl[facility]04-11-2024 NoteHNO ID: [id number] Author: STEPHANIE HERNANDES Mammo Tech Service: ? Author Type: Pad Machine Operator Type: Progress Notes Filed: 11/01/2023 13:38 Note [...] PATIENT PRESENTS WITH AN IMPLANTABLE OR ATTACHED SERVICE OR WORK DISPATCHER CHIEF: No RADIOLOGY DEPARTMENT: Mammography PERIPHERAL IV DATA: Not applicable SIGNED BY: Stephanie Hernandse [employer] November 01, 2023 1:19 [facility]04-11-2024 History of Present illness Narrative* Francisco Meza [...] PATIENT PRESENTS WITH AN IMPLANTABLE OR ATTACHED SERVICE OR WORK DISPATCHER CHIEF: No RADIOLOGY DEPARTMENT: Bone Density PERIPHERAL IV DATA: Not applicable SIGNED BY: RT Van(Noreen) November 01, 2023 12:58 PM documented in this encounterCl[facility]04-11-2024 NoteHNO ID: [id number] Author: FRANCISCO MEZA RT(R) Service: ? Author [...] PATIENT PRESENTS WITH AN IMPLANTABLE OR ATTACHED SERVICE OR WORK DISPATCHER CHIEF: No RADIOLOGY DEPARTMENT: Bone Density PERIPHERAL IV DATA: Not applicable SIGNED BY: RT Van(R) November 01, 2023 12:58 [facility]03-25-2024 NoteHNO ID: [id number] Author: DEMARIO MARTINEZ RN Service: ? Author [...] Demario Martinez RN October 15, 2023 11:26 [facility]03-25-2024 History of Present illness Narrative* Demario Martinez [...] 15, 2023 11:26 AM documented in this encounterCl[facility]24 NotePatient Outreach ([facility]) FELISHA PERRIN ([id number]) 1965 F Date Time Provider Department 10/15/23 [...] Neurologist. - LORazepam (ATIVAN) 0.5 mg From [employer]. - meloxicam (MOBIC) 7.5 mg tablet Take [...] 1 tablet by mouth twice daily. Per [facility]. - Mirtazapine (REMERON) 7.5 mg tablet Take 1 tablet by mouth daily at bedtime. Per [facility]. - acetaminophen (TYLENOL EXTRA STRENGTH) 500 [...] hyperlipidemia [E78.2] 11/17/2016 Pulmonary hypertension, secondary (HCC) [ASH194*11/17/2016 History of DVT of lower extremity [Z86.718] [...] 01/30/2022 Concussion [S06.0XAA] 0 (more content not included)...[facility] 10-13-2023 NoteHNO ID: [id number] Author: ANDRIA BUTLER LPN Service: ? Author Type: LICENSED NURSE Type: Progress Notes Filed: 10/13/2023 11:23 Note Text: POPULATION HEALTH NAVIGATION OUTREACH Action/FYI Reason for Outreach Care Gap/HCC or Scheduling Wellness Visits Care Gaps due: Follow-up Appointment Patient Contacted: Unable or unnecessary to reach patient: Left message Navigation Signature: Andria Butler LPN October 13, 2023 11:21 [facility]03-23-2024 History of Present illness Narrative* Andria Butler LPN - 10/13/2023 11:20 AM EDT POPULATION HEALTH NAVIGATION OUTREACH Action/FYI Reason for Outreach Care Gap/HCC or Scheduling Wellness Visits Care Gaps due: Follow-up Appointment Patient Contacted: Unable or unnecessary to reach patient: Left message Navigation Signature: Andria Butler LPN October 13, 2023 11:21 AM documented in this encounterCl[facility]03-23-2024 NotePatient Outreach ([facility]) FELISHA PERRIN ([id number]) 1965 F Date Time Provider Department 10/13/23 [...] Neurologist. - LORazepam (ATIVAN) 0.5 mg From [employer]. - meloxicam (MOBIC) 7.5 mg tablet Take 7.5 mg by mouth once daily. - oxyCODONE-acetaminophen (PERCOCET) 5-325 mg tablet From [email or web address] - venlafaxine ER (EFFEXOR XR) 150 mg [...] hyperlipidemia [E78.2] 11/17/2016 Pulmonary hypertension, secondary (HCC) [XSP657*11/17/2016 History of DVT of lower extremity [Z86.718] [...] 01/30/2022 Polyneuropathy [G62.9] 01/30/2022 (more content not included)...[facility]02-22-2024 NoteHNO ID: [id number] Author: DEMARIO MARTINEZ RN Service: ? Author [...] Demario Martinez RN September 13, 2023 10:47 [facility]02-22-2024 History of Present illness Narrative* Demario Martinez RN - 09/13/2023 10:21 AM EST CDM Telephonic Outreach Provider Action/FYI CDM:COPD Left a message to verify symptom status and needs. Instructed to call PCP with any symptom or condition changes. Copd CURTIS Education sent Contacted for: Engagement Contact made with patient: No, left message. Demario Martinez RN September 13, 2023 10:47 AM documented in this encounterCl[facility]02-[facility]-2024 NotePatient Outreach ([facility]) ZOILAFELISHA ([id number]) 1965 F Date Time Provider Department 09/13/23 [...] pulmonary disease (COPD) [J44.89] Order(s):PT ED PULMONARY [[id number]] Order #: [id number]: 1 Prescriptions as of 09/13/2023 - spironolactone [...] Neurologist. - LORazepam (ATIVAN) 0.5 mg From [employer]. 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 Author Type: Registered Nurse Type: Progress Notes Filed: 08/13/2023 16:44 Note Text: CDM Telephonic Outreach Provider Action/FYI CDM:COPD Left a message to verify symptom status and needs, instructed to call PCP with any changes in symptoms or condition. Contacted for: Engagement Contact made with patient: No, left message. Demario Martinez RN August 13, 2023 4:44 [facility]01-19-2024 NoteHNO ID: [id number] Author: DEMARIO MARTINEZ RN Service: ? Author Type: Registered Nurse Type: Progress Notes Filed: 08/13/2023 16:44 Note Text: CDM Telephonic Outreach Provider Action/FYI CDM:COPD Called Pt, unable to leave?a message to verify symptom status and needs. Contacted for: Engagement Contact made with patient: No, unable to leave message. Will reattempt call Demario Martinez RN August 10, 2023 1:21 [facility]01-17-2024 NoteHNO ID: [id number] Author: DEMARIO MARTINEZ RN Service: ? Author Type: Registered Nurse Type: Progress Notes Filed: 08/13/2023 16:44 Note Text: CDM Telephonic Outreach Provider Action/FYI CDM:COPD Left a message to verify symptom status and needs, instructed to call PCP with any changes in symptoms or condition. Contacted for: Engagement Contact made with patient: No, left message. Demario Martinez RN August 08, 2023 11:55 [facility]01-17-2024 NotePatient Outreach ([facility]) FELISHA PERRIN ([id number]) 1965 F Date Time Provider Department 08/08/23 [...] Neurologist. - LORazepam (ATIVAN) 0.5 mg From [employer]. - meloxicam (MOBIC) 7.5 mg tablet Take 7.5 mg by mouth once daily. - oxyCODONE-acetaminophen (PERCOCET) 5-325 mg tablet From [email or web address] - venlafaxine ER (EFFEXOR XR) 150 mg [...] disea*10/23/2016 Mixed hyperlipidemia [E78.2] (more content not included)...[facility]12-12-2023 Discharge summary Author Callum Knutson [facility] July 02, 2023 11:16pm Note Date/Time July 02, 2023 9:30pm [facility] Medical Records Department [address] [place] [address] Emergency Department Summary 07/02/23 MR#: [id number] Acct: [id number] Name: FELISHA PERRIN Rep #:[id number] : [...] she returned to where she lives at [facility], shewas told that her hemoglobin was low at 6.5. She is also having the left flank pain. She denies any exacerbating or alleviating factors to her left flank pain. [facility] Medical History Acute and chronic respiratory failure [...] % (Auto) 63.5 Lymph % (Auto) 24.9 [place] % (Auto) 7.9 Eos % (Auto) 3.1 [...] Clarity Clear Urine pH 6.0 Ur Specific [place] 1.010 Urine Protein Negative Urine Glucose (UA) [...] department. Disposition Disposition: Assisted Living Discharge Location: [facility] What to do if you have Problems For any increased pain, shortness of breath, bleeding, nausea or vomiting, chestpain, or any unexpected problems, contact your Primary Care Provider. Call [facility] ([phone]) or report to the closest Emergency Room. Call 911 if necessary. 07/02/23 0465 <Electronically signed by Callum Knutson MD> Cosigner Signature (if applicable): CC: Marilee Yu MD ~ Signed [facility] Work Phone: [phone]) 175-321211-04-2023 NoteHNO ID: [id number] Author: Demario Martinez, RN Service: ? Author Type: Registered Nurse Type: Progress Notes Filed: 05/26/2023 5:13 PM Note Text: CDM Telephonic Outreach Provider Action/FYI Spk with Pt she denies symptom changes or concerns, or needs. Provided My Chart 'Home Monitoring questionnaire location. Pt notes is living at [place] at [facility], Goals completed. Contacted for: Engagement Contact made with patient: Yes Patient identified by name and date of . Discussed care with patient Outcomes: Patient forgot, reminder given Are you experiencing any new or worsening symptoms you need to talk about today? No Based on kaiawhina, the following disposition is advised: No symptoms or symptoms present, not severe. Routed to: No Action Needed CURTIS Education Provided this Outreach: No Demario Martinez RN May 26, 2023 5:06 [facility]11-04-2023 History of Present illness Narrative* Demario Martinez RN - 05/26/2023 5:06 PM EDT CDM Telephonic Outreach Provider Action/FYI Spk with Pt she denies symptom changes or concerns, or needs. Provided My Chart 'Home Monitoring questionnaire location. Pt notes is living at [place] at [facility], Goals completed. Contacted for: Engagement Contact made with patient: Yes Patient identified by name and date of . Discussed care with patient Outcomes: Patient forgot, reminder given Are you experiencing any new or worsening symptoms you need to talk about today? No Based on kaiawhina, the following disposition is advised: No symptoms [...] 24, 2023 5:22 PM documented in this encounterClermont [facility]11-02-2023 NoteHNO ID: [id number] Author: Demario Martinez RN Service: ? Author [...] Demario Martinez RN May 24, 2023 5:22 [facility]11-02-2023 NotePatient Outreach ([facility]) FELISHA PERRIN ([id number]) 1965 F Date Time Provider Department 05/24/23 DEMARIO MARTINEZ [facility] During your visit today, we recorded the following information about you: Dmeario Martinez RN 05/26/2023 5:13 PM Signed CDM [...] questionnaire location. Pt notes is living at [place] at [facility], Goals completed. Contacted for: Engagement Contact made with patient: Yes Patient identified by name and date of . Discussed care with patient Outcomes: Patient forgot, reminder given Are you experiencing any new or worsening symptoms you need to talk about today? No Based on kaiawhina, the following disposition is advised: No symptoms [...] Neurologist. - LORazepam (ATIVAN) 0.5 mg From [facility]. - meloxicam (MOBIC) 7.5 mg tablet Take [...] [R09.02] 01/17/2016 09/26/2017 O (more content not included)...[facility]08-09-2023 NoteHNO ID: [id number] Author: Demario Martinez RN Service: ? Author Type: Registered Nurse Type: Progress Notes Filed: 02/28/2023 2:25 PM Note Text: CDM Telephonic Outreach Provider Action/FYI CDM: COPD Left a message to verify symptom status and needs and to provide My Chart 'Home Monitoring questionnaire location. Contacted for: Engagement Contact made with patient: No, left message. Demario Martinez RN February 28, 2023 2:23 [facility]08-09-2023 History of Present illness Narrative* Demario Martinez [...] 22, 2023 2:51 PM documented in this encounterClermont [facility] Hospital08-03-2023 NoteHNO ID: [id number] Author: Demario Martinez RN Service: ? Author [...] Demario Martinez RN February 22, 2023 2:51 [facility]08-03-2023 NotePatient Outreach ([facility]) FELISHA PERRIN ([id number]) 1965 F Date Time Provider Department 02/22/23 [...] Neurologist. - LORazepam (ATIVAN) [facility].5 mg From [facility]. - meloxicam (MOBIC) 7.5 mg tablet Take [...] hyperlipidemia [E78.2] 11/17/2016 Pulmonary hypertension, secondary (HCC) [WJU531*11/17/2016 History of DVT of lower extremity [Z86.718] 12/28/2016 Colonic mass [K63.89] 03/02/2017 09/26/2017 Obesity, Class III, BMI >= 40 [E66.01] 01/01/2018 Restrictive lung disease secondary to obesity [*03/11/20 (more content not included)...[facility]07-20-2023 Discharge summary Author Kee Funk [facility] February 07, 2023 10:47pm Note Date/Time February 07, 2023 10:3 4pm [facility] Medical Records Department [address] [place] [address] Emergency Department Summary 02/07/23 MR#: [id number] Acct: [id number] Name: FELISHA PERRIN Rep #:[id number] : [...] to ambulate. She is chronically on oxygen. [facility] Medical History Abnormal cardiac enzyme level Acute [...] it is quite extensive I reviewed in [employer] paperwork Review of systems General: There is [...] your Primary Care Provider. Call [facility] ([phone]) or report to the closest Emergency Room. Call 911 if necessary. 02/07/232246 <Electronically signed by Kee Funk MD> Cosigner Signature (if applicable): CC: Marilee Yu MD ~ Signed [facility] Work Phone: [phone]) 300-686501-18-2023 History of Present illness Narrative* Tom Montelongo [...] unable to reach pt. Call forwarded to [employer] messaging [email or web address], voicemail has only phone number, no other identifier, unable to leave HIPAA-complaint message If patient calls back please ask if any concerns and if need refills. If so, please ask which medications and which pharmacy to send to. Will have front desk attendant attempt to reschedule patient Tom Montelongo M.D. Top Precipitator Operator PGY-3 This encounter was opened in error. Patient was a No-Show. Please disregard. documented in this [id number] Miscellaneous Notes* Telephone Encounter - Andria Butler JOAN - 07/25/2022 3:27 PM EST [...] and advise. Fouzia Little documented in this encounterClermont [facility] Hospital12-07-2022 Miscellaneous Notes* Telephone Encounter - Ritika [...] you. Ritika Berry RN documented in this encounterClermont County Hospital12-05-2022 Note* Addendum Note - Minnie Edwards MD - 06/26/2022 12:07 PM ESTAddended by: MINNIE EDWARDS on: 06/26/2022 12:07 PM Modules accepted: Level of Service [id number] Miscellaneous Notes* Addendum Note - Minnie Edwards MD - 06/26/2022 12:07 PM ESTAddended by: MINNIE EDWARDS on: 06/26/2022 12:07 PM Modules accepted: Level of Service documented in this [id number] Miscellaneous Notes* Telephone Encounter - Kalli Zarate [...] of Last Labs: 02/15/2022 documented in this encounterClermont County Hospital10-19-2022 History of Present illness Narrative* Minnie Edwards MD - 05/10/2022 10:30 AM EDT Images from the original note were not included. Documentation: Mode: Telephone Patient Patient Work Phone: Patient Cell Preferred phone: [phone] Consent: I confirmed patient understanding of the [...] see MR Phone numbers Preferred phone #: [phone] Verified number (above) and current location (in [...] one day at a time. Has a route service representative coming in 1 day/week. Talks to and [...] dialogue with therapist: Yes Suicide Screener: C-SSRS Taft-Suicide Severity Rating Scale Able to complete Taft-Suicide Severity Rating Scale with Patient?: Yes 1) [...] CCP on 03/09/15 Restless leg syndrome Stroke ([facility]) Vitamin D deficiency MENTAL HEALTH INTERVENTIONS: Maintain [...] appointment: Patient to schedule Tom Montelongo M.D. Top Precipitator Operator PGY-3 Teaching Physician Note: I saw and evaluated the patient on 05/10/22. I personally obtained the keith and critical portions ofthe history and physical exam. I reviewed the resident's documentation and discussed the patient with the resident. I agree with the resident's medical decision making as documented in the resident'snote. Minnie Edwards MD documented in this [id number] Telephone encounter Note* Telephone Encounter - Bib Enriquez RPh - 04/02/2022 3:21 PM EDT Last visit with Judy Gomez DO (Resident) Psychiatry 11/02/21 [id number] Miscellaneous Notes* Telephone Encounter - Bib Enriquez [facility] - 04/02/2022 3:21 PM EDT Last visit with Judy Gomez DO (Resident) Psychiatry 11/02/21 Electronically signed by Bib Enriquez [facility] at 04/02/2022 3:22 PM EDT documented in this [id number] Telephone encounter Note* Telephone Encounter - Avani Ewing RN - 03/16/2022 9:20 AM EDT Remeron last ordered on 12/27/21 for a 90 day supply with no refills. Pended 90 day supply. [id number] Miscellaneous Notes* Telephone Encounter - Avani Ewing RN - 03/16/2022 9:20 AM EDT Remeron last ordered on 12/27/21 for a 90 day supply with no refills. Pended 90 day supply. * Telephone Encounter - Carolina Noyola - 03/15/2022 2:10 PM EDT Last visit with Psychiatry Tom Montelongo was 02/08/2022 Next visit with Psychiatry (Tom Montelongo) is 05/10/2022 documented in this [id number] Telephone encounter Note* Telephone Encounter - Carolina Noyola - 03/15/2022 2:10 PM EDT Last visit with Psychiatry Tom Montelongo was 02/08/2022 Next visit with Psychiatry (Tom Montelongo) is 05/10/2022 [id number] Miscellaneous Notes* Telephone Encounter - Andria Butler [...] Epic. Leola Schwartz RN documented in this encounterClermont County Hospital08-01-2022 Miscellaneous Notes* Letter - Mammography Coordinator - 02/20/2022 3:08 PM EDT February 20, 2022 PID: [id number] Felisha Perrin [address] [place] [address] Dear Ms. Perrin, We are pleased to [...] report will be kept on file [facility] as part of your permanent medical record and are available for your continuing care. Thank you for allowing us to help in meeting your health care needs. Sincerely, Dr. Pierce Interpreting Radiologist [facility] (Normal over 40) documented in this encounterClermont County Hospital08-01-2022 History of Present illness Narrative* Alvarez [...] (Gastroesophageal Reflux Disease) Anxiety Arthritis Depression Epilepsy ([facility]) Smoker Chronic Bilateral Low Back Pain Without Sciatica Stephanie (Obstructive Sleep Apnea) Asthma With Chronic Obstructive Pulmonary Disease (Copd) ([facility]) Mixed Hyperlipidemia Pulmonary Hypertension, Secondary History of Dvt of Lower Extremity Obesity, Class III, BMI >= 40 Restrictive Lung Disease Secondary to Obesity Anemia Essential Hypertension 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 Per [facility]. Mirtazapine (REMERON) 7.5 mg tablet Take 1 tablet by mouth daily at bedtime. Per [facility]. acetaminophen (TYLENOL EXTRA STRENGTH) 500 mg tablet Take 1,000 mg by mouth every 8 hours as needed. venlafaxine ER (EFFEXOR XR) 75 mg 24 hr capsule Take 75 mg by mouth once daily. Plus 37.5 mg capsule. [facility]. venlafaxine ER (EFFEXOR XR) 37.5 mg 24 hr capsule Take 37.5 mg by mouth once daily. Plus 75 mg capsule. [facility]. mometasone (ELOCON) 0.1 % cream APPLY [...] TABLET Alvarez Montanez MD documented in this encounterClermont County Hospital08-01-2022 History of Present illness Narrative* Stephanie Hernandes [employer] - 02/20/2022 11:30 AM EDT Radiology Service [...] DATA: Not applicable SIGNED BY: Stephanie Hernandes [employer] February 20, 2022 11:58 AM documented in this encounterClermont County Hospital07-29-2022 Miscellaneous Notes* Telephone Encounter - Melissa [...] need a blood transfusion. documented in this encounterClermont County Hospital07-25-2022 Note* Addendum Note - Minnie Edwards MD - 02/13/2022 4:20 PM EDTAddended by: MINNIE EDWARDS on: 02/13/2022 04:20 PM Modules accepted: Level of Service [id number] Note* Addendum Note - Minnie Edwards MD - 02/13/2022 4:20 PM EDTAddended by: MINNIE EDWARDS on: 02/13/2022 04:20 PM Modules accepted: Level of Service [id number] Miscellaneous Notes* Addendum Note - Minnie Edwards MD - 02/13/2022 4:20 PM EDTAddended by: MINNIE EDWARDS on: 02/13/2022 04:20 PM Modules accepted: Level of Service documented in this [id number] History of Present illness Narrative* Minnie Edwards MD - 02/08/2022 9:46 AM EDT Images from the original note were not included. Documentation: Mode: Telephone Patient Patient Work Phone: Patient Cell Preferred phone: [phone] Consent: I confirmed patient understanding of the risks and benefits of telehealth visits and obtained consent to proceed with the telehealth visit. Location of Patient: Home of patient Telephone Encounter This visit was initiated by the patient / provider and the patient and provider interacted in real time. Location of the patient: Home of patient Location of the provider: [facility] Reviewed informed consent with patient: yes - see MR Patient/parent indicated understanding of informed consent: yes see MR Phone numbers Preferred phone #: [phone] Verified number (above) and current location (in [...] dialogue with therapist: Yes Suicide Screener: C-SSRS Taft-Suicide Severity Rating Scale Able to complete Taft-Suicide Severity Rating Scale with Patient?: Yes 1) [...] on CPAP Osteoporosis Prediabetes RA (rheumatoid arthritis) ([facility]) neg RF and CCP on 03/09/15 Restless leg syndrome Stroke ([facility]) Vitamin D deficiency MENTAL HEALTH INTERVENTIONS: Maintain [...] with psychiatry attending Dr. Jerry Montelongo M.D. Top Precipitator Operator PGY-3 Teaching Physician Note: I saw and evaluated the patient. I personally obtained the keith and critical portions of the historyand physical exam. I reviewed the resident's documentation and discussed the patient with the resident. I agree with the resident's medical decision making as documented in the resident's note. Minnie Edwards MD documented in this [id number] Nurse Note* Andria Zepeda Carrie FRANCO - 01/30/2022 6:44 PM EDT Images from the original note were not included. Patient Outreach 01/24/2022 Internal Medicine Aiyana Montanez MD Internal Medicine Transition Of Care Reason for Visit Progress Notes Nohemy Peterson LPN TRANSITION CARE MANAGEMENT (TCM) INITIAL CONTACT Psychological Stress Evaluator Outreach Provider Action/FYI: TCM Initial contact with patient post discharge, spoke to patient. Patient identified by name and . TRANSITION CARE MANAGEMENT INITIAL OUTREACH DOCUMENTATION: Date of Outreach: 01/24/2022 Outreach Attempt 1: Contact Made Date of Discharge 01/19/2022 Some recent data might be hidden SUMMARY: -Pt discharged from [facility] on 01/19/22. -Admitted for: fall with head [...] review it appears pt gets this from [facility]. Itwas recommended she contact them for this refill. Note Details Additional Documentation Flowsheets: Transitional Care Management Encounter Info: Billing Info, History, Allergies, Detailed Report Pharmacy Benefits No pharmacy benefits on file. Travel Screening and History No documentation. Orders Placed None Medication Changes None Medication List Visit Diagnoses None Problem List documented in this encounterClermont County Hospital07-11-2022 History of Present illness Narrative* Alvarez Montanez MD - 01/30/2022 6:43 PM EDT This note was created using [employer]. Subjective Transitional Care Management Progress Note The [...] and joints hurt when having frequent myoclonus. 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 Per [facility]. Mirtazapine (REMERON) 7.5 mg tablet Take 1 tablet by mouth daily at bedtime. Per [facility]. acetaminophen (TYLENOL EXTRA STRENGTH) 500 mg tablet Take 1,000 mg by mouth every 8 hours as needed. venlafaxine ER (EFFEXOR XR) 75 mg 24 hr capsule Take 75 mg by mouth once daily. Plus 37.5 mg capsule. [facility]. venlafaxine ER (EFFEXOR XR) 37.5 mg 24 hr capsule Take 37.5 mg by mouth once daily. Plus 75 mg capsule. [facility]. mometasone (ELOCON) 0.1 % cream APPLY [...] precautions. She declined SNF. She applied for [facility] but was rejected due to co-morbidities. 2. [...] Stable. Alvarez Montanez MD documented in this encounterClermont County Hospital07-05-2022 History of Present illness Narrative* Nohemy Peterson JOAN - 01/24/2022 3:14 PM EDT TRANSITION CARE MANAGEMENT (TCM) INITIAL CONTACT Psychological Stress Evaluator Outreach Provider Action/FYI: TCM Initial contact with patient post discharge, spoke to patient. Patient identified by name and . TRANSITION CARE MANAGEMENT INITIAL OUTREACH DOCUMENTATION: Date of Outreach: 01/24/2022 Outreach Attempt 1: Contact Made Date of Discharge 01/19/2022 Some recent data might be hidden SUMMARY: -Pt discharged from [facility] on 01/19/22. -Admitted for: fall with head [...] review it appears pt gets this from [facility]. Itwas recommended she contact them for this refill. documented in this encounterClermont County Hospital06-29-2022 Miscellaneous Notes* Telephone Encounter - Chase Rosenthal Ma - 01/18/2022 4:33 PM EDT Faxed as requested. Chase Rosenthal Ma * Telephone Encounter - Sofia Holloway - 01/18/2022 10:01 AM EDT [facility]. A number of meds they have on file do not appear on patient's current meds. documented in this encounterClermont County Hospital06-28-2022 History of Present illness Narrative* Juan Marti RN - 01/17/2022 12:28 PM EDT INSIGHT CD TELEPHONIC OUTREACH Provider Action/FYI: 01/15/22 [facility] ED Flank Pain 01/16/22 Called Pt left a message to verify symptom status and request Pt schedule ED follow up withPCP/ PHARMACY GRADUATE INTERN. Contact made with patient: No - Left message Maryellen my name is Demario Martinez RN your Prototype Machine Operator from the [facility] I am callingtoday for your bi-weekly [...] EDT inSight CD Engagement Provider Action/FYI: 01/15/22 [facility] ED Flank Pain 01/16/22 Called Pt left a message to verify symptom status and request Pt schedule ED follow up withPCP/ PHARMACY GRADUATE INTERN. Contact Made with Patient: No, first attempt, left message. Maryellen Perrin. This is Demario Martinez RN your Prototype Machine Operator from the [facility]. I am calling to check in with you concerning the MyChart questionnaire you have been receiving from me. I will call you again tomorrow and am looking forward to speaking with you. (Prototype Machine Operator enters next day in next patient outreach) Demario Martinez RN January 16, 2022 2:07 PM documented in this encounterClermont County Hospital06-23-2022 Telephone encounter Note * Telephone Encounter [...] No future appointment with PCP (NAS BOOGIE) [id number] Miscellaneous Notes* Telephone Encounter - Faisal Witt [...] with PCP (NAS BOOGIE) documented in this [id number] History of Present illness Narrative* Juan Marti RN - 12/26/2021 4:09 PM EDT inSight CDM Engagement Provider Action/FYI: Routed updates to Dr. Tarik Chadwick with Pt she was seen 12/14/21 at [facility] ED for a UTI, treated with ATB, Pt denies fever or chills, denies blood in her urine or dysuria, Pt reports she is hydrating well, denies needs or concerns. Instructed on the importance of PCP/PHARMACY GRADUATE INTERN follow up, Pt verbalized understanding. Contact Made with Patient: Yes Patient identified by name and . Discussed care with patient Maryellen chapman name is Demario Martinez RN your Prototype Machine Operator [facility] I am reaching out today because I [...] 26, 2021 4:09 PM documented in this encounterClermont County Hospital05-04-2022 History of Present illness Narrative* Juan Marti RN - 11/23/2021 4:22 PM EDT in[facility]ight CDM Engagement Provider Action/FYI: Routed updates to Dr. Montanez Spsidney with Pt who reports was seen at [facility] ED for a break through seizure, denies missed doses of Keppra, or Depakote ER Pt reported CT of Head Negative for bleeding. Pt denies having any seizure activity Instructed to schedule Appt with PCP/ PHARMACY GRADUATE INTERN for ED follow up, Pt verbalized understanding. Previous UTI symptoms resolved. Denies new or worsening COPD symptoms Pt denies needs or concerns. Contact Made with Patient: Yes Patient identified by name and . Discussed care with patient Maryellen chapman name is Demario Martinez RN your Prototype Machine Operator [facility] I am reaching out today because I [...] 23, 2021 4:22 PM documented in this encounterClermont County Hospital04-07-2022 Miscellaneous Notes* Telephone Encounter - bAbi Felix - 10/27/2021 1:34 PM EDT Pt [...] seen. ROBIN PazGORAN PA-C documented in this encounterClermont County Hospital04-06-2022 History of Present illness Narrative* Stephanie [...] 2021 TIME: 3:55 PM documented in this encounterClermont County Hospital04-04-2022 Miscellaneous Notes* Telephone Encounter - Nohemy [...] notify patient. Mckenna Thomas documented in this encounterClermont County Hospital03-29-2022 Miscellaneous Notes* Telephone Encounter - Yari Crockett - 10/18/2021 2:15 PM EDT Left vm pt scheduled with Dr. Pereyra in [place] ofc 11/02/21 @ 2:[address] prior 10/19/21. [place] documented in this encounterClermont County Hospital03-29-2022 Miscellaneous Notes* Addendum Note - Chilo Matthew PA-C - 10/18/2021 1:50 PM EDT Addended by: CHILO MATTHEW on: 10/18/2021 01:50 PM Modules accepted: Orders documented in this encounterClermont County Hospital03-29-2022 History of Present illness Narrative* Chilo Matthew PA-C - 10/18/2021 1:27 PM EDT Images from the original note were not included. [facility] [place] PATIENT INFO: Felisha Perrin 53 year old [facility] # [id number] PCP: Alvarez Montanez MD Referred by: Alvarez [...] problems. Neurologic: No history of TIA's, stroke, EGG SORTER tumor, impaired sensorium, hemiplegia, paraplegia or quadriplegia. [...] ED [facility] Result Value Ref Range Clinical Laboratory Service Teacher Provider JAVAN your patient FELISHA PERRIN has NOT started their Curtis program, time has . Curtis program: BREAST BIOPSY: IMAGE-GUIDED NEEDLE (FNA OR CORE) PT ED PATIENT INFORMATION Result Value Ref Range Clinical Laboratory Service Teacher Provider AJVAN your patient FELISHA PERRIN has NOT started [...] Plan: Appointment with Chilo. [facility] Miscellaneous Notes* Telephone Encounter - Alvarez Montanez MD - 10/13/2021 1:22 PM EDT Noted. * Telephone Encounter - Melina Pineda RN - 10/13/2021 11:30 AM EDT Bita- PT- [facility]entive [facility]- reports they are discharging patient today from PT. Reports patient has reached maximum potential. [facility] Miscellaneous Notes* Telephone Encounter - Andria Butler LPN - 06/29/2021 1:54 PM EST Left message to call & reschedule missed appt. Andria Butler LPN * Telephone Encounter - Alvarez Montanez MD - 06/25/2021 9:24 AM EST Noted. Patient hester no follow up scheduled after cancellations/no shows. Schedule follow up. * Telephone Encounter - Melina Pineda RN - 06/22/2021 4:53 PM EST [id number] reports she saw patient yesterday for [...] difficult to gait train. documented in [facility]Cl[facility]21 NoteHNO ID: [id number] Author: RT Maria Isabel(R) Service: ? Author Type: Pad Machine Operator Type: Progress Notes Filed: 02/24/2021 8:37 AM [...] RT Maria Isabel(R) February 24, 2021 8:36 [facility]08-05-2021 NoteHNO ID: [id number] Author: RT Cathryn(Noreen) Service: ? Author Type: Pad Machine Operator Type: Progress Notes Filed: 02/24/2021 10:01 AM [...] BY: RT Cathryn(R) February 24, 2021 10:00 [facility]06-21-2021 History of Past illness Narrative* Problem Noted Date Resolved Date Abnormal mammogram 01/10/2021 05/05/2021 Acquired renal cyst 09/03/2018 05/05/2021 Colonic mass 03/02/2017 09/26/2017 Overview: Added automatically from request for surgery [id number] Pulmonary embolism 01/17/2016 05/28/2017 Hypoxemia 01/17/2016 09/26/2017 [...] of this encounter (statuses as of 10/13/2021) [facility] of Past illness Narrative* Problem Noted Date Resolved Date Abnormal mammogram 01/10/2021 05/05/2021 Acquired renal cyst 09/03/2018 05/05/2021 Colonic mass 03/02/2017 09/26/2017 Overview: Added automatically from request for surgery [id number] Pulmonary embolism 01/17/2016 05/28/2017 Hypoxemia 01/17/2016 09/26/2017 [...] of this encounter (statuses as of 10/18/2021) [facility] of Past illness Narrative* Problem Noted Date Resolved Date Abnormal mammogram 01/10/2021 05/05/2021 Acquired renal cyst 09/03/2018 05/05/2021 Colonic mass 03/02/2017 09/26/2017 Overview: Added automatically from request for surgery [id number] Pulmonary embolism 01/17/2016 05/28/2017 Hypoxemia 01/17/2016 09/26/2017 [...] of this encounter (statuses as of 10/18/2021) [facility] of [facility] illness Narrative* Problem Noted Date Resolved Date Abnormal mammogram 01/10/2021 05/05/2021 Acquired renal cyst 09/03/2018 05/05/2021 Colonic mass 03/02/2017 09/26/2017 Overview: Added automatically from request for surgery [id number] Pulmonary embolism 01/17/2016 05/28/2017 Hypoxemia 01/17/2016 09/26/2017 [...] of this encounter (statuses as of 10/24/2021) [facility] of [facility] illness Narrative* Problem Noted Date Resolved Date Abnormal mammogram 01/10/2021 05/05/2021 Acquired renal cyst 09/03/2018 05/05/2021 Colonic mass 03/02/2017 09/26/2017 Overview: Added automatically from request for surgery [id number] Pulmonary embolism 01/17/2016 05/28/2017 Hypoxemia 01/17/2016 09/26/2017 [...] of this encounter (statuses as of 10/27/2021) [facility] Narrative* Problem Noted Date Resolved Date Abnormal mammogram 01/10/2021 05/05/2021 Acquired renal cyst 09/03/2018 05/05/2021 Colonic mass 03/02/2017 09/26/2017 Overview: Added automatically from request for surgery [id number] Pulmonary embolism 01/17/2016 05/28/2017 Hypoxemia 01/17/2016 09/26/2017 [...] of this encounter (statuses as of 10/27/2021) [facility] Narrative* Problem Noted Date Resolved Date Abnormal mammogram 01/10/2021 05/05/2021 Acquired renal cyst 09/03/2018 05/05/2021 Colonic mass 03/02/2017 09/26/2017 Overview: Added automatically from request for surgery [id number] Pulmonary embolism 01/17/2016 05/28/2017 Hypoxemia 01/17/2016 09/26/2017 [...] of this encounter (statuses as of 11/16/2021) [facility] Narrative* Problem Noted Date Resolved Date Abnormal mammogram 01/10/2021 05/05/2021 Acquired renal cyst 09/03/2018 05/05/2021 Colonic mass 03/02/2017 09/26/2017 Overview: Added automatically from request for surgery [id number] Pulmonary embolism 01/17/2016 05/28/2017 Hypoxemia 01/17/2016 09/26/2017 [...] of this encounter (statuses as of 11/23/2021) [facility] Narrative* Problem Noted Date Resolved Date Abnormal mammogram 01/10/2021 05/05/2021 Acquired renal cyst 09/03/2018 05/05/2021 Colonic mass 03/02/2017 09/26/2017 Overview: Added automatically from request for surgery [id number] Pulmonary embolism 01/17/2016 05/28/2017 Hypoxemia 01/17/2016 09/26/2017 [...] of this encounter (statuses as of 12/26/2021) [facility] Narrative* Problem Noted Date Resolved Date Abnormal mammogram 01/10/2021 05/05/2021 Acquired renal cyst 09/03/2018 05/05/2021 Colonic mass 03/02/2017 09/26/2017 Overview: Added automatically from request for surgery [id number] Pulmonary embolism 01/17/2016 05/28/2017 Hypoxemia 01/17/2016 09/26/2017 [...] of this encounter (statuses as of 01/17/2022) [facility] Narrative* Problem Noted Date Resolved Date Abnormal mammogram 01/10/2021 05/05/2021 Acquired renal cyst 09/03/2018 05/05/2021 Colonic mass 03/02/2017 09/26/2017 Overview: Added automatically from request for surgery [id number] Pulmonary embolism 01/17/2016 05/28/2017 Hypoxemia 01/17/2016 09/26/2017 [...] of this encounter (statuses as of 01/18/2022) [facility] Narrative* Problem Noted Date Resolved Date Abnormal mammogram 01/10/2021 05/05/2021 Acquired renal cyst 09/03/2018 05/05/2021 Colonic mass 03/02/2017 09/26/2017 Overview: Added automatically from request for surgery [id number] Pulmonary embolism 01/17/2016 05/28/2017 Hypoxemia 01/17/2016 09/26/2017 [...] of this encounter (statuses as of 01/24/2022) [facility] Narrative* Problem Noted Date Resolved Date Abnormal mammogram 01/10/2021 05/05/2021 Acquired renal cyst 09/03/2018 05/05/2021 Colonic mass 03/02/2017 09/26/2017 Overview: Added automatically from request for surgery [id number] Pulmonary embolism 01/17/2016 05/28/2017 Hypoxemia 01/17/2016 09/26/2017 [...] of this encounter (statuses as of 01/31/2022) [facility] Narrative* Problem Noted Date Resolved Date Abnormal mammogram 01/10/2021 05/05/2021 Acquired renal cyst 09/03/2018 05/05/2021 Colonic mass 03/02/2017 09/26/2017 Overview: Added automatically from request for surgery [id number] Pulmonary embolism 01/17/2016 05/28/2017 Hypoxemia 01/17/2016 09/26/2017 [...] of this encounter (statuses as of 02/17/2022) [facility] Narrative* Problem Noted Date Resolved Date Abnormal mammogram 01/10/2021 05/05/2021 Acquired renal cyst 09/03/2018 05/05/2021 Colonic mass 03/02/2017 09/26/2017 Overview: Added automatically from request for surgery [id number] Pulmonary embolism 01/17/2016 05/28/2017 Hypoxemia 01/17/2016 09/26/2017 [...] of this encounter (statuses as of 02/20/2022) [facility] N[facility]ative* Problem Noted Date Resolved Date Abnormal mammogram 01/10/2021 05/05/2021 Acquired renal cyst 09/03/2018 05/05/2021 Colonic mass 03/02/2017 09/26/2017 Overview: Added automatically from request for surgery [id number] Pulmonary embolism 01/17/2016 05/28/2017 Hypoxemia 01/17/2016 09/26/2017 [...] of this encounter (statuses as of 02/21/2022) [facility] Narrative* Problem Noted Date Resolved Date Abnormal mammogram 01/10/2021 05/05/2021 Acquired renal cyst 09/03/2018 05/05/2021 Colonic mass 03/02/2017 09/26/2017 Overview: Added automatically from request for surgery [id number] Pulmonary embolism 01/17/2016 05/28/2017 Hypoxemia 01/17/2016 09/26/2017 [...] of this encounter (statuses as of 02/22/2022) [facility] Narrative* Problem Noted Date Resolved Date Abnormal mammogram 01/10/2021 05/05/2021 Acquired renal cyst 09/03/2018 05/05/2021 Colonic mass 03/02/2017 09/26/2017 Overview: Added automatically from request for surgery [id number] Pulmonary embolism 01/17/2016 05/28/2017 Hypoxemia 01/17/2016 09/26/2017 [...] of this encounter (statuses as of 03/13/2022) [facility] N[facility]* Problem Noted Date Resolved Date Abnormal mammogram 01/10/2021 05/05/2021 Acquired renal cyst 09/03/2018 05/05/2021 Colonic mass 03/02/2017 09/26/2017 Overview: Added automatically from request for surgery [id number] Pulmonary embolism 01/17/2016 05/28/2017 Hypoxemia 01/17/2016 09/26/2017 [...] of this encounter (statuses as of 05/24/2022) [facility] Narrative* Problem Noted Date Resolved Date Abnormal mammogram 01/10/2021 05/05/2021 Acquired renal cyst 09/03/2018 05/05/2021 Colonic mass 03/02/2017 09/26/2017 Overview: Added automatically from request for surgery [id number] Pulmonary embolism 01/17/2016 05/28/2017 Hypoxemia 01/17/2016 09/26/2017 [...] of this encounter (statuses as of 06/28/2022) [facility] N[facility]* Problem Noted Date Resolved Date Abnormal mammogram 01/10/2021 05/05/2021 Acquired renal cyst 09/03/2018 05/05/2021 Colonic mass 03/02/2017 09/26/2017 Overview: Added automatically from request for surgery [id number] Pulmonary embolism 01/17/2016 05/28/2017 Hypoxemia 01/17/2016 09/26/2017 [...] of this encounter (statuses as of 07/29/2022) [facility] Narrative* Problem Noted Date Diagnosed Date Resolved Date Abnormal mammogram 01/10/2021 Acquired renal cyst 09/03/2018 05/05/20 21 Colonic mass 03/02/2017 09/26/2017 Overview: Added automatically from request for surgery [id number] Pulmonary embolism 01/17/2016 7 Hypoxemia 01/17/2016 09/26/2017 [...] of this encounter (statuses as of 02/28/2023) [facility] Narrative* Problem Noted Date Diagnosed Date Resolved Date Abnormal mammogram 01/10/2021 1 Acquired renal cyst 09/03/2018 05/05/20 21 Colonic mass 03/02/2017 09/26/2017 Overview: Added automatically from request for surgery [id number] Pulmonary embolism 01/17/2016 7 Hypoxemia 01/17/2016 09/26/2017 [...] of this encounter (statuses as of 05/27/2023) [facility] Narrative* Problem Noted Date Diagnosed Date Resolved Date Abnormal mammogram 01/10/2021 1 Acquired renal cyst 09/03/2018 05/05/20 21 Colonic mass 03/02/2017 09/26/2017 Overview: Added automatically from request for surgery [id number] Pulmonary embolism 01/17/2016 7 Hypoxemia 01/17/2016 09/26/2017 [...] of this encounter (statuses as of 09/13/2023) [facility] Narrative* Problem Noted Date Diagnosed Date Resolved Date Abnormal mammogram 01/10/2021 1 Acquired renal cyst 09/03/2018 05/05/20 21 Colonic mass 03/02/2017 09/26/2017 Overview: Added automatically from request for surgery [id number] Pulmonary embolism 01/17/2016 7 Hypoxemia 01/17/2016 09/26/2017 [...] of this encounter (statuses as of 10/13/2023) [facility] N[facility]* Problem Noted Date Diagnosed Date Resolved Date Abnormal mammogram 01/10/2021 1 Acquired renal cyst 09/03/2018 05/05/20 21 Colonic mass 03/02/2017 09/26/2017 Overview: Added automatically from request for surgery [id number] Pulmonary embolism 01/17/2016 7 Hypoxemia 01/17/2016 09/26/2017 [...] of this encounter (statuses as of 10/15/2023) [facility]arr[facility]* Problem Noted Date Diagnosed Date Resolved Date Abnormal mammogram 01/10/2021 1 Acquired renal cyst 09/03/2018 05/05/20 21 Colonic mass 03/02/2017 09/26/2017 Overview: Added automatically from request for surgery [id number] Pulmonary embolism 01/17/2016 7 Hypoxemia 01/17/2016 09/26/2017 [...] of this encounter (statuses as of 11/02/2023) [facility]* Problem Noted Date Diagnosed Date Resolved Date Abnormal mammogram 01/10/2021 1 Acquired renal cyst 09/03/2018 05/05/20 21 Colonic mass 03/02/2017 09/26/2017 Overview: Added automatically from request for surgery [id number] Pulmonary embolism 01/17/2016 7 Hypoxemia 01/17/2016 09/26/2017 [...] of this encounter (statuses as of 11/06/2023) [facility] Diagnosis Gross hematuria- Primary Recurrent UTI Urinary tract infection, site not specified [facility] Diagnosis Onset Date Resolution Status LEIGH ANN (acute kidney injury) re solved Hematemesis resolved Pneumonia resolved UTI (urinary tract infection) resolved Weakness resolved Anemia acute Fatty liver acute Melena acute Abdominal pain acute Anemia acute Fatty liver acute Hematemesis acute Melena acute [facility] Work Phone: Evaluation note* Diagnosis Asthma with chronic obstructive pulmonary disease (COPD) (HCC) Chronic obstructive asthma, unspecified [facility] Diagnosis Gross hematuria [facility] Diagnosis Onset Date Resolution Status LEIGH ANN (acute kidney injury) re solved Hematemesis resolved Pneumonia resolved UTI (urinary tract infection) resolved Weakness resolved Anemia acute Fatty liver acute Melena acute Abdominal pain acute Anemia acute Fatty liver acute Hematemesis acute Melena acute Epilepsy acute Hypoxic brain injury acute 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 Polyneuropathy acute [facility] Work Phone: Evaluation note* Diagnosis Onset Date [...] with action induced myoclonus chronic Polyneuropathy chronic [facility] Work Phone: Evaluation note* Diagnosis Onset Date Resolution Status Anemia acute Fatty liver acute Melena acute Abdominal pain acute Anemia acute Fatty liver acute Hematemesis acute Melena acute Epilepsy chronic Hypoxic brain injury chronic 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 Fatigue chronic Hypoxic brain injury chronic 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 [facility] Work Phone: Evaluation note* Diagnosis Onset Date Resolution Status Abdominal pain acute Anemia acute Fatty liver acute Hematemesis acute Melena acute Epilepsy chronic Hypoxic brain injury chronic 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 Fatigue chronic Hypoxic brain injury chronic 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 Concussion acute FTT (failure to thrive) in adult acute [facility] Work Phone: Evaluation note* Diagnosis Onset Date [...] Acute on chronic blood loss anemia chronic [facility] Work Phone: Evaluation note* Diagnosis Onset Date Resolution Status Abdominal pain acute Anemia acute Fatty liver acute Hematemesis acute Melena acute Epilepsy chronic Hypoxic brain injury chronic 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 Fatigue chronic Hypoxic brain injury chronic 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 [facility] Work Phone: Evaluation note* Diagnosis Closed head [...] Chronic respiratory failure [facility] Diagnosis Onset Date Resolution Status Epilepsy chronic Hypoxic brain injury chronic 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 Fatigue chronic Hypoxic brain injury chronic 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 Acute on chronic blood loss anemia resolved Contusion, chest wall resolv ed Headache resolved [facility] Work Phone: Evaluation note* Diagnosis Major depressive [...] of pulmonary embolism [facility] Diagnosis Obesity, Class III, BMI >= 40 Morbid obesity Ductal carcinoma in situ (DCIS) of left breast Encounter for screening mammogram for malignant neoplasm of breast Other screening mammogram [facility] Diagnosis Onset Date Resolution Status Epilepsy chronic Fatigue chronic Hypoxic brain injury chronic 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) Chronic obstructive asthma, unspecified [facility] Diagnosis Onset Date Resolution Status [...] chronic Obesity chronic STEPHANIE (obstructive sleep apnea) [facility] Work Phone: Evaluation note* Diagnosis Onset Date [...] chronic Obesity chronic STEPHANIE (obstructive sleep apnea) [facility] Work Phone: Evaluation note* Diagnosis Anxiety Anxiety state, unspecified Major depressive disorder, recurrent episode with anxious distress (HCC) [facility] Anxiety Anxiety state, unspecified Major depressive disorder, recurrent episode with anxious distress (HCC) [facility] Diagnosis Asthma with chronic obstructive pulmonary disease (COPD) (HCC) Chronic obstructive asthma, unspecified [facility] Diagnosis Essential hypertension Unspecified essential hypertension Mixed hyperlipidemia Gastroesophageal reflux disease without esophagitis Esophageal reflux Asthma with chronic obstructive pulmonary disease (COPD) (HCC) Chronic obstructive asthma, unspecified [facility] Diagnosis NO SHOW- Primary [facility] noteNo assessment information availableWMarietta [facility] Work Phone: Evaluation note* Diagnosis Onset Date Resolution Status COPD (chronic obstructive pulmonary disease) chronic 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 History of breast cancer non eactive History of blood clots nonea ctive Immunization due noneactive Chronic pain noneactive Essential hypertension nonea ctive Left flank pain noneactive Screening for breast cancer noneactive Chronic anemia noneactive [facility] Work Phone: Evaluation note* Diagnosis Asthma with chronic obstructive pulmonary disease (COPD)- Primary Chronic obstructive asthma, unspecified [facility]WM[facility] Work Phone: Hospital Discharge instructionsWMarietta [facility] Work Phone: Hospital Discharge instructions Additional Instructions [...] the nearest emergency department Date of Discharge: 06/06/22[facility] Work Phone: Hospital Discharge instructions Additional Instructions Your hemoglobin was 7.8 today. You do not require transfusions from the emergency department.[facility] Work Phone: Hospital Discharge instructions Additional Instructions Continue your oxycodone for analgesia. Wear your splint for the next week, you may remove it for bathing or sleeping if needed. Continue ice and elevation of your left wrist and hand when possible.[facility] Work Phone: Hospital Discharge instructionsAmbulatory Orders* Home Health Location: None [facility] Work Phone: Reason for referral (narrative)* Diagnostic Procedure Only (Routine) - Authorized Specialty Diagnoses / Procedures Referred By Alexander hooper Referred To Contact [facility] IMAGING Diagnoses Left leg pain Procedures US DVT LOWER LT DUP-SCAN XTR VEINS UNILATERAL/LIMITED STUDY Alvarez Montanez MD [address] [place] [address] [facility] Referral ID Status Reason Start Date Expiration Date Visits Requested Visits Authorized [id number] Authorized Auto-Generat ed Referral 02/20/2022 03/22/2023 1 1 [facility] for referral (narrative)* Diagnostic Procedure Only (Routine) - Closed Specialty Diagnoses / Procedures Referred By Alexander hooper Referred To Contact [facility] IMAGING Diagnoses Obesity, Class III, BMI 40-49.9 (morbid obesity) (HCC) Ductal carcinoma in situ (DCIS) of left breast Encounter for screening mammogram for malignant neoplasm of breast Procedures PÉREZ SCREENING SCREENING MAMMOGRAPHY BI 2-VIEW BREAST INC Isela Malone MD [address] [place] [address] [facility] [address] [place] [address] Referral ID Status Reason Start Date Expiration Date V isits Requested Visits Authorized [id number] Closed Auto-Generate d Referral 02/19/2022 09/21/2022 1 1 [facility]No reason for referral information availableNew [place] [facility] Work Phone: Reason for visit Narrative* [...] BREAST INC Isela Malone MD [address] [facility] [place] [address] [facility] [address] [place] [address] Referral ID Status Reason Start Date Expiration Date V isits Requested Visits Authorized [id number] Closed Auto-Generate d Referral 02/19/2022 09/21/2022 1 1 [facility] Summary Purpose Family History No Family [...] FoundDocuments on File Type Date Recorded 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 Advance Directive(s) 03/14/2017 9:50 AM Documents on File Type Date Recorded 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 Advance Directive(s) 03/14/2017 9:50 AM Advance Directive Response Recorded Date/ Time Advance Directives No May 03, 2021 9:40am Living Will No September 22, 2021 7:13pm Power of Contract Clerk No September 22 7:13pm Advance Directive Response Recorded Date/ Time Advance Directives No May 03, 2021 9:40am Living Will No November 03, 2021 5:26pm Power of Contract Clerk No Angelika 14th, 20 22 5:26pm Advance Directive Response Recorded Date/ Time Advance Directives No May 03, 2021 9:40am Living Will No December 14, 2021 1 :28pm Power of Contract Clerk No December 14, 2021 1:28pm Advance Directive Response Recorded Date/ Time Advance Directives No May 03, 2021 9:40am Living Will No January 10, 2022 6:28pm Power of Contract Clerk No January 10 6:28pm Advance Directive Response Recorded Date/ Time Advance Directives No May 03, 2021 9:40am Living Will No January 17, 2022 11:39pm Power of Contract Clerk No January 17 11:39pm Advance Directive Response Recorded Date/ Time Advance Directives No May 03, 2021 9:40am Living Will No January 18, 2022 4:13am Power of Contract Clerk No January 18 4:13am Advance Directive Response Recorded Date/ Time Advance Directives No May 03, 2021 9:40am Living Will No January 15, 2022 7:24pm Power of Contract Clerk No January 15 7:24pm Advance Directive Response Recorded Date/ Time Advance Directives No May 03, 2021 9:40am Living Will No February 12, 2022 3:39pm Power of Contract Clerk No February 12 3:39pm Advance Directive Response Recorded Date/ Time Advance Directives No May 03, 2021 9:40am Living Will No March 06 2 6:27pm Power of Contract Clerk No March 06 2 022 6:27pm Advance Directive Response Recorded Date/ Time Advance Directives No May 03, 2021 9:40am Living Will No March 15 2 5:47pm Power of Contract Clerk No March 15 2 022 5:47pm Advance Directive Response Recorded Date/ Time Advance Directives No May 03, 2021 9:40am Living Will No March 19 2 2:31pm Power of Contract Clerk No March 19 2 022 2:31pm Advance Directive Response Recorded Date/ Time Advance Directives No May 03, 2021 9:40am Living Will No April 01, 2022 12:53pm Power of Contract Clerk No March 12:53pm Advance Directive Response Recorded Date/ Time Name of Medical Power of Contract Clerk SISTER IN [employer] June 05, 2022 9:06pm Advance Directives No May 03, 2021 8:40am Living Will Yes June 05, 022 9:06pm Power of Contract Clerk Yes June 05, 2022 9:06pm Advance Directive Response Recorded Date/ Time Name of Medical Power of Contract Clerk Deanne Bradshaw June 06, 2022 2:57am Advance Directives No May 03, 2021 8:40am Living Will No June 06, 022 2:57am Power of Contract Clerk Yes June 06, 2022 2:57am Advance Directive Response Recorded Date/ Time Advance Directives No May 03, 2021 9:40am Living Will No February 07, 2023 10:10pm Power of Contract Clerk No February 07 10:10pm Advance Directive Response Recorded Date/ Time Advance Directives No May 03, 2021 8:40am Living Will No July 02, 023 9:41pm Power of Contract Clerk No July 02, 2023 9:41pm Advance Directive Response Recorded Date/ Time Living Will No August 13 1:54am Do you have a Healthcare Power of Contract Clerk? No August 13, 2024 1:54am Do you have a Healthcare Power of Contract Clerk? No November 20, 2024 11:46am Advance Directives No May 03, 2021 9:40am Advance Directive Response Recorded Date/ Time Do you have a Healthcare Power of Contract Clerk? No November 20, 2024 11:46am Advance Directives No May 03, 2021 9:40am Reason for Referral Specialty Diagnoses / Procedures Referred By Alexander t Referred To Contact CT IMAGING Diagnoses Gross hematuria Procedures CT UROGRAM WO/W IVCON CT ABD & PELVIS W/O CONTRST 1+ BODY Chilo Young PA-C [address] [place] [address] Ct Imaging Referral ID Status Reason Start Date Expiration Date Visits Requested Visits Authorized [id number] Authorized Auto-Generat ed Referral 10/19/2021 11/17/2022 1 1 Referral ID Status Reason Start Date Expiration Date V isits Requested Visits Authorized [id number] Closed Auto-Generate d Referral 10/19/2021 11/17/2022 1 1 Specialty Diagnoses / Procedures Referred By Alexander hooper Referred To Contact Psychology Diagnoses Anxiety Major depressive disorder, recurrent episode with anxious distress (HCC) Bereavement Minnie Edwards MD [address] [place] [address] S PS[facility] [address] [place] [address] Referral ID Status Reason Start Date Expiration Date V isits Requested Visits Authorized [id number] Authorized 02/08/2022 02/08/2023 3 3 Scheduling Instructions Please contact or go to the [facility] desk to schedule an appointment. 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 ppw SOB FALL Reason [...] CONCUSSION SUSPECTED, RECENT FALLS FALL FLANK PAIN purse framer. 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 ppw SOB FALL Chest [...] Chronic anemia Chief Complaint FALL FLANK PAIN purse framer. 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 ppw SOB FALL Chest [...] sleep apnea) Chief Complaint FALL FLANK PAIN purse framer. 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 ppw SOB FALL Chest [...] (obstructive sleep apnea) Chief Complaint FLANK PAIN purse framer. 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 ppw SOB FALL Chest [...] FALLS, ADULT FTT Januar y 2024 7:37am [facility] F[facility] August 28, 2024 3 :19pm EORDER- [...] Date High Risk Chronic Disease Home Monitoring [facility] 12/05/2022 Active Problems Noted Date Diagnosed Date High Risk Chronic Disease Home Monitoring [facility] 12/05/2022 Active Problems Noted Date Diagnosed Date High Risk Chronic Disease Home Monitoring [facility] 12/05/2022 Additional Source Comments INFORMATION SOURCE (unrecogn ized section and content) DATE CREATED AUTHOR 01/16/2018 [facility] DATE CREATED AUTHOR AUTHOR'S ORGANIZ ATION 12/19/2020 [facility] DATE CREATED AUTHOR AUTHOR'S ORGANIZ ATION 02/23/2022 [facility] DATE CREATED AUTHOR AUTHOR'S ORGANIZ ATION 08/15/2022 [facility] DATE CREATED AUTHOR AUTHOR'S ORGANIZ ATION 01/18/2024 [facility] DATE CREATED AUTHOR AUTHOR'S ORGANIZ ATION 02/24/2025 [facility] Source Comments (unrecognize d section and content) In the event this informatio n is protected by the Federal Confidentiality of Alcohol and Drug Abuse Patient Records regulations: The Federal rules restrict any use of the information to criminally investigate or prosecute any alcohol or drug abuse patient.[facility] the event this information is protected by the Federal Confidentiality of Alcohol and Drug Abuse Patient Records regulations: The Federal rules restrict any use of the information to criminally investigate or prosecute any alcohol or drug abuse patient.[facility] the event this information is protected by the Federal Confidentiality of Alcohol and Drug Abuse Patient Records regulations: The Federal rules restrict any use of the information to criminally investigate or prosecute any alcohol or drug abuse patient.[facility] the event this information is protected by the Federal Confidentiality of Alcohol and Drug Abuse Patient Records regulations: The Federal rules restrict any use of the information to criminally investigate or prosecute any alcohol or drug abuse patient.[facility] the event this information is protected by the Federal Confidentiality of Alcohol and Drug Abuse Patient Records regulations: The Federal rules restrict any use of the information to criminally investigate or prosecute any alcohol or drug abuse patient.[facility] the event this information is protected by the Federal Confidentiality of Alcohol and Drug Abuse Patient Records regulations: The Federal rules restrict any use of the information to criminally investigate or prosecute any alcohol or drug abuse patient.[facility] the event this information is protected by the Federal Confidentiality of Alcohol and Drug Abuse Patient Records regulations: The Federal rules restrict any use of the information to criminally investigate or prosecute any alcohol or drug abuse patient.[facility] the event this information is protected by the Federal Confidentiality of Alcohol and Drug Abuse Patient Records regulations: The Federal rules restrict any use of the information to criminally investigate or prosecute any alcohol or drug abuse patient.[facility] the event this information is protected by the Federal Confidentiality of Alcohol and Drug Abuse Patient Records regulations: The Federal rules restrict any use of the information to criminally investigate or prosecute any alcohol or drug abuse patient.[facility] the event this information is protected by the Federal Confidentiality of Alcohol and Drug Abuse Patient Records regulations: The Federal rules restrict any use of the information to criminally investigate or prosecute any alcohol or drug abuse patient.[facility] the event this information is protected by the Federal Confidentiality of Alcohol and Drug Abuse Patient Records regulations: The Federal rules restrict any use of the information to criminally investigate or prosecute any alcohol or drug abuse patient.[facility] the event this information is protected by the Federal Confidentiality of Alcohol and Drug Abuse Patient Records regulations: The Federal rules restrict any use of the information to criminally investigate or prosecute any alcohol or drug abuse patient.[facility] the event this information is protected by the Federal Confidentiality of Alcohol and Drug Abuse Patient Records regulations: The Federal rules restrict any use of the information to criminally investigate or prosecute any alcohol or drug abuse patient.[facility] the event this information is protected by the Federal Confidentiality of Alcohol and Drug Abuse Patient Records regulations: The Federal rules restrict any use of the information to criminally investigate or prosecute any alcohol or drug abuse patient.[facility] the event this information is protected by the Federal Confidentiality of Alcohol and Drug Abuse Patient Records regulations: The Federal rules restrict any use of the information to criminally investigate or prosecute any alcohol or drug abuse patient.[facility] the event this information is protected by the Federal Confidentiality of Alcohol and Drug Abuse Patient Records regulations: The Federal rules restrict any use of the information to criminally investigate or prosecute any alcohol or drug abuse patient.[facility] the event this information is protected by the Federal Confidentiality of Alcohol and Drug Abuse Patient Records regulations: The Federal rules restrict any use of the information to criminally investigate or prosecute any alcohol or drug abuse patient.[facility] the event this information is protected by the Federal Confidentiality of Alcohol and Drug Abuse Patient Records regulations: The Federal rules restrict any use of the information to criminally investigate or prosecute any alcohol or drug abuse patient.[facility] the event this information is protected by the Federal Confidentiality of Alcohol and Drug Abuse Patient Records regulations: The Federal rules restrict any use of the information to criminally investigate or prosecute any alcohol or drug abuse patient.[facility]In the event this information is protected by the Federal Confidentiality of Alcohol and Drug Abuse Patient Records regulations: The Federal rules restrict any use of the information to criminally investigate or prosecute any alcohol or drug abuse patient.[facility]In the event this information is protected by the Federal Confidentiality of Alcohol and Drug Abuse Patient Records regulations: The Federal rules restrict any use of the information to criminally investigate or prosecute any alcohol or drug abuse patient.[facility]In the event this information is protected by the Federal Confidentiality of Alcohol and Drug Abuse Patient Records regulations: The Federal rules restrict any use of the information to criminally investigate or prosecute any alcohol or drug abuse patient.[facility]In the event this information is protected by the Federal Confidentiality of Alcohol and Drug Abuse Patient Records regulations: The Federal rules restrict any use of the information to criminally investigate or prosecute any alcohol or drug abuse patient.[facility] the event this information is protected by the Federal Confidentiality of Alcohol and Drug Abuse Patient Records regulations: The Federal rules restrict any use of the information to criminally investigate or prosecute any alcohol or drug abuse patient.[facility]In the event this information is protected by the Federal Confidentiality of Alcohol and Drug Abuse Patient Records regulations: The Federal rules restrict any use of the information to criminally investigate or prosecute any alcohol or drug abuse patient.[facility]In the event this information is protected by the Federal Confidentiality of Alcohol and Drug Abuse Patient Records regulations: The Federal rules restrict any use of the information to criminally investigate or prosecute any alcohol or drug abuse patient.[facility]In the event this information is protected by the Federal Confidentiality of Alcohol and Drug Abuse Patient Records regulations: The Federal rules restrict any use of the information to criminally investigate or prosecute any alcohol or drug abuse patient.[facility]In the event this information is protected by the Federal Confidentiality of Alcohol and Drug Abuse Patient Records regulations: The Federal rules restrict any use of the information to criminally investigate or prosecute any alcohol or drug abuse patient.[facility]In the event this information is protected by the Federal Confidentiality of Alcohol and Drug Abuse Patient Records regulations: The Federal rules restrict any use of the information to criminally investigate or prosecute any alcohol or drug abuse patient.[facility]In the event this information is protected by the Federal Confidentiality of Alcohol and Drug Abuse Patient Records regulations: The Federal rules restrict any use of the information to criminally investigate or prosecute any alcohol or drug abuse patient.[facility]In the event this information is protected by the Federal Confidentiality of Alcohol and Drug Abuse Patient Records regulations: The Federal rules restrict any use of the information to criminally investigate or prosecute any alcohol or drug abuse patient.[facility] Reason for Visit (unrecogniz ed section [...] W/O CONTRST 1+ BODY Chilo Young PA-C [address] [place] [address] Ct Imaging Referral ID Status Reason Start Date Expiration Date V isits Requested Visits Authorized [id number] Closed Auto-Generate d Referral 10/19/2021 11/17/2022 1 [...] Care Teams (unrecognized sec tion and content) Special Education Director Relationship Specialty Start Date End Date Alvarez Montanez MD [address] [place], [place] [id number] PCP - General Internal Medicine 12/21/15 Rajani Stewart [address] [facility] [address] [place], [place] [id number] Psychiatry 04/25/17 Isiah Barker MD, [address] [place], [place] [address] Physician Radiation Oncology 06/27/21 Juan Marti, associate professor of radiologyElectrical Appliance Repairer Internal Medicine 09/21/21 Special Education Director Relationship Specialty Start Date End Date Alvarez Montanez MD [address] [place], [place] [id number] PCP - General Internal Medicine 12/21/15 Rajani Stewart [address] [facility] [address] [place], [place] [id number] Psychiatry 04/25/17 Isiah Barker MD, [address] [facility] [place] [address] Physician Radiation Oncology 06/27/21 Juan Marti, associate professor of radiologyElectrical Appliance Repairer Internal Medicine 09/21/21 Special Education Director Relationship Specialty Start Date End Date Alvarez Montanez MD [address] [facility] [address] PCP - General Internal Medicine 12/21/15 Rajani Stewart [address] [facility] [address] [place] [address] Psychiatry 04/25/17 Isiah Barker MD, [address] [facility] [place] [address] Physician Radiation Oncology 06/27/21 Juan Marti, associate professor of radiologyElectrical Appliance Repairer Internal Medicine 09/21/21 Special Education Director Relationship Specialty Start Date End Date Alvarez Montanez MD [address] [facility] [address] PCP - General Internal Medicine 12/21/15 Rajani Stewart [address] [facility] [address] [place] [address] Psychiatry 04/25/17 Isiah Barker MD, [address] [facility] [place] [address] Physician Radiation Oncology 06/27/21 Juan Marti, associate professor of radiologyElectrical Appliance Repairer Internal Medicine 09/21/21 Special Education Director Relationship Specialty Start Date End Date Alvarez Montanez MD [address] [facility] [address] PCP - General Internal Medicine 12/21/15 Rajani Stewart [address] [facility] [address] [place] [address] Psychiatry 04/25/17 Isiah Barker MD, [address] [place] [address] Physician Radiation Oncology 06/27/21 Juan Marti, associate professor of radiologyElectrical Appliance Repairer Internal Medicine 09/21/21 Special Education Director Relationship Specialty Start Date End Date Alvarez Montanez MD [address] [place] [address] PCP - General Internal Medicine 12/21/15 Rajani Stewart [address] [facility] [address] [place] [address] Psychiatry 04/25/17 Isiah Barker MD, [address] [place] [address] Physician Radiation Oncology 06/27/21 Juan Marti, associate professor of radiologyElectrical Appliance Repairer Internal Medicine 09/21/21 Special Education Director Relationship Specialty Start Date End Date Alvarez Montanez MD [address] [place] [address] PCP - General Internal Medicine 12/21/15 Rajani Stewart [address] [facility] [address] [place] [address] Psychiatry 04/25/17 Isiah Barker MD, [address] [facility] [place] [address] Physician Radiation Oncology 06/27/21 Juan Marti associate professor of radiologyElectrical Appliance Repairer Internal Medicine 09/21/21 Special Education Director Relationship Specialty Start Date End Date Alvarez Montanez MD [address] [place] [address] PCP - General Internal Medicine 12/21/15 Rajani Stewart [address] [place] [address] [address] [place] [address] Psychiatry 04/25/17 Isiah Barker MD, [address] [place] [address] Physician Radiation Oncology 06/27/21 Juan Marti, associate professor of radiologyElectrical Appliance Repairer Internal Medicine 09/21/21 Special Education Director Relationship Specialty Start Date End Date Alvarez Montanez MD [address] [place] [address] PCP - General Internal Medicine 12/21/15 Rajani Stewart [address] [place] [address] [address] [place] [address] Psychiatry 04/25/17 Isiah Barker MD, [address] [facility] [place] [address] Physician Radiation Oncology 06/27/21 Juan Marti, associate professor of radiologyElectrical Appliance Repairer Internal Medicine 09/21/21 Special Education Director Relationship Specialty Start Date End Date Nas Boogie DO [address] [place], [place] [id number] PCP - General 01/06/20 Special Education Director Relationship Specialty Start Date End Date Alvarez Montanez MD [address] [place] [address] PCP - General Internal Medicine 12/21/15 [facility] [address] [place] [address] [address] [place] [address] Psychiatry 04/25/17 Isiah Barker MD, [address] [place] [address] Physician Radiation Oncology 06/27/21 Juan Marti, associate professor of radiologyElectrical Appliance Repairer Internal Medicine 09/21/21 Special Education Director Relationship Specialty Start Date End Date Imani Geiger MD [address] [facility] [place] [address] PCP - General 01/17/22 Special Education Director Relationship Specialty Start Date End Date Alvarez Montanez MD [address] [place] [address] PCP - General Internal Medicine 12/21/15 Rajani Stewart [address] [facility] [address] [place] [address] Psychiatry 04/25/17 Isiah Barker MD, [address] [place] [place] [address] Physician Radiation Oncology 06/27/21 Juan Marti, associate professor of radiologyElectrical Appliance Repairer Internal Medicine 09/21/21 Special Education Director Relationship Specialty Start Date End Date Alvarez Montanez MD [address] [place] [address] PCP - General Internal Medicine 12/21/15 Rajani Stewart [address] [facility] [address] [place] [address] Psychiatry 04/25/17 Isiah Barker MD, [address] [facility] [place] [address] Physician Radiation Oncology 06/27/21 Juan Marti, associate professor of radiologyElectrical Appliance Repairer Internal Medicine 09/21/21 Special Education Director Relationship Specialty Start Date End Date Alvarez Montanez MD [address] [place] [address] PCP - General Internal Medicine 12/21/15 Rajani Stewart [address] [facility] [address] [place] [address] Psychiatry 04/25/17 Isiah Barker MD, [address] [place] [address] Physician Radiation Oncology 06/27/21 Juan Marti, associate professor of radiologyElectrical Appliance Repairer Internal Medicine 09/21/21 Special Education Director Relationship Specialty Start Date End Date Alvarez Montanez MD [address] [place] [address] PCP - General Internal Medicine 12/21/15 Rajani Stewart [address] [facility] [address] [place] [address] Psychiatry 04/25/17 Isiah Barker MD, [address] [place] [address] Physician Radiation Oncology 06/27/21 Juan Marti, associate professor of radiologyElectrical Appliance Repairer Internal Medicine 09/21/21 Special Education Director Relationship Specialty Start Date End Date Imani Geiger MD [address] [facility] [place] [address] PCP - General 01/17/22 Special Education Director Relationship Specialty Start Date End Date Imani Geiger MD [address] [facility] [place] [address] PCP - General 01/17/22 Special Education Director Relationship Specialty Start Date End Date Alvarez Montanez MD [address] [place] [address] PCP - General Internal Medicine 12/21/15 Rajani Stewart [address] [facility] [address] [place] [address] Psychiatry 04/25/17 Isiah Barker MD, [address] [place] [address] Physician Radiation Oncology 06/27/21 Juan Marti, associate professor of radiologyElectrical Appliance Repairer Internal Medicine 09/21/21 Special Education Director Relationship Specialty Start Date End Date Imani Geiger MD [address] [facility] [place] [address] PCP - General 01/17/22 Special Education Director Relationship Specialty Start Date End Date Imani Geiger MD [address] [facility] [place] [address] PCP - General 01/17/22 Special Education Director Relationship Specialty Start Date End Date Imani Geiger MD [address] [facility] [place] [address] PCP - General 01/17/22 Special Education Director Relationship Specialty Start Date End Date Alvarez Montanez MD [address] [place] [address] PCP - General Internal Medicine 12/21/15 Rajani Stewart [address] [facility] [address] [place] [address] Psychiatry 04/25/17 Isiah Barker MD, [address] [place] [address] Physician Radiation Oncology 06/27/21 Demario Martinez, associate professor of radiologyElectrical Appliance Repairer Internal Medicine 09/21/21 Special Education Director Relationship Specialty Start Date End Date Alvarez Montanez MD [address] [place] [address] PCP - General Internal Medicine 12/21/15 Rajani Stewart [address] [facility] [address] [place] [address] Psychiatry 04/25/17 Isiah Barker MD, [address] [place], [place] [address] Physician Radiation Oncology 06/27/21 Demario Martinez, associate professor of radiologyElectrical Appliance Repairer Internal Medicine 09/21/21 Team Status: Active Member [...] Marilee Yu MD Primary Care Provider Active Special Education Director Relationship Specialty Start Date End Date Alavrez Montanez MD [address] [place], [place] [address] PCP - General Internal Medicine 12/21/15 Rajani Stewart [address] [facility] [place] [address] Psychiatry 04/25/17 Isiah Barker MD, MD [address] [place], [place] [address] Physician Radiation Oncology 06/27/21 Demario Martinez RN Electrical Appliance Repairer Internal Medicine 09/21/21 Team Status: Inactive Member Role Status Dates Dr. Marilee Yu MD Primary Care Provider, Referring Provider Active Dr. Ysabel Ruffin MD Attending Provider Active Team Status: Inactive Member Role Status Dates Dr. Marilee Yu MD Primary Care Provider Active Callum Knutson MD Referring Provider, Emergency Provid er Active Special Education Director Relationship Specialty Start Date End Date Alvarez Montanez MD [address] [facility], [place] [id number] PCP - General Internal Medicine 12/21/15 Rajani Stewart [address] [facility] [address] [address] [place] [address] Psychiatry 04/25/17 Isiah Barker MD [address] [facility] [place] [place] [address] Physician Radiation Oncology 06/27/21 Demario Martinez, associate professor of radiologyElectrical Appliance Repairer Internal Medicine 09/21/21 Special Education Director Relationship Specialty Start Date End Date Alvarez Montanez MD [address] [place], [place] [id number] PCP - General Internal Medicine 12/21/15 Rajani Stewart [address] [facility] [address] [place] [address] Psychiatry 04/25/17 Isiah Barker MD [address] [facility] [address] [place], [place] [id number] Physician Radiation Oncology 06/27/21 Demario Martinez, associate professor of radiologyElectrical Appliance Repairer Internal Medicine 09/21/21 Special Education Director Relationship Specialty Start Date End Date Alvarez Montanez MD [address] [place], [place] [id number] PCP - General Internal Medicine 12/21/15 Rajani Stewart [address] [facility] [address] [place] [address] Psychiatry 04/25/17 Isiah Barker MD [address] [facility] [place] [place] [id number] Physician Radiation Oncology 06/27/21 Demario Martinez, associate professor of radiologyElectrical Appliance Repairer Internal Medicine 09/21/21 Special Education Director Relationship Specialty Start Date End Date Alvarez Montanez MD [address] [place], [place] [id number] PCP - General Internal Medicine 12/21/15 Rajani Stewart [address] [facility] [address] [address] [place] [address] Psychiatry 04/25/17 Isiah Barker MD [address] [place] [place] [address] Physician Radiation Oncology 06/27/21 Demario Martinez RN Electrical Appliance Repairer Internal Medicine 09/21/21 Special Education Director Relationship Specialty Start Date End Date Rajani Stewart [address] [facility] [address] [place] [address] Psychiatry 04/25/17 Isiah Barker MD [address] [place] [address] Physician Radiation Oncology 06/27/21 Demario Martinez, associate professor of radiologyElectrical Appliance Repairer Internal Medicine 09/21/21 Special Education Director Relationship Specialty Start Date End Date Imani Geiger MD [address] [place] [address] [place] [address] PCP - General 01/17/22 Team Status: Active [...] 29, 2024 End: December 29, 2024 Dr. Ysable Ruffin MD Referring Provider Active Start: December [...] BE BASED ON THE PRIMARY CLINICAL RECORDS. [employer] [facility]. provides no warranty or guarantee of the accuracy or completeness of information in this document.
--- NOTE | 2025-03-08 20:38 | RAD_ITS ---
PROCEDURE: CHEST 1 VIEW 03/08/2025 REASON FOR EXAM: ETT PLACEMENT TECHNIQUE: Frontal view of the chest. COMPARISON: CT chest 08/12/2024 FINDINGS: Hardware: Endotracheal tube tip projects about 3.5 cm above the basilio. Heart: Heart size is mildly enlarged. Lungs: Diffuse pulmonary vascular congestion. Scattered left lung base opacities. No definite pneumothorax. Bones: The bones are unremarkable. RAD/Chest 1 View IMPRESSION: Mild cardiomegaly with diffuse pulmonary vascular congestion. Scattered left l jb base opacities. Reading [facility]
[2025-03-08] MEDS: fentaNYL drip 100 ML 2.5 MCG CONT INF (20:50)
--- NOTE | 2025-03-08 20:50 | PCM.HOSP.N ---
Hospitalist Note Intubation Indication: Respiratory failure, metabolic encephalopathy The patient was placed in the appropriate sniffing position. Preoxygenated sedation via pcz-yubno-laba was provided for a minimum of 3 minutes. The patient had continuous cardiac as well as pulse oximetry monitoring during the procedure. Procedure sedation was provided by the administration of 2 mg of Versed and 20 mg of etomidate. Direct laryngoscopy was then performed using a number 4 MAC blade. A 7.5mm endotracheal tube was visualized advancing between the cords to the level of 20 cm at the lip. The stylette was then removed and discarded. Tube placement was confirmed by fogging in the tube along with equal and bilateral breath sounds. Colorimetric change was visualized on the CO2 meter. The cuff was then inflated and the tube secured using a commercially available device. A good pulse oximetry waveform was seen on the monitor throughout the procedure. A portable chest x-ray has been ordered to confirm appropriate placement. The patient tolerated the procedure well.
--- NOTE | 2025-03-08 20:50 | PCM.HP.STD ---
HPI - General General Date of Admission: 03/08/25 Date of Service: 03/08/25 Chief Complaint: Decreased level of consciousness, burning on urination HPI Narrative LUIS A CUMMINGS, is a 59-year-old female history of sleep apnea, thoracic compression fractures, COPD and CHF on 3 L home O2, anxiety, chronic pain, Parkinson's, seizure disorder, GERD, hypertension, PE who presented to [facility] ED 03/08/2025 due to episode of decreased consciousness as well as headache. She was with her brother and sister who reportedly initially there were concerns for unresponsiveness for 5 minutes at home but on EMS arrival she was awake. At baseline she mostly uses wheelchair and walker and is on palliative care for pain. In the ED temp 99.9, heart rate 102, blood pressure 137/82, pulse ox 95% on 4 L nasal cannula. CBC with white blood cell count 7.8, hemoglobin 9.4. BUN 23 with creatinine of 1.46, baseline appears closer to 1. Lactic acid less than 1, brain CT no acute process. Cervical spine CT no acute process. Chest x-ray suboptimal inspiration but did not note any acute process, COVID/flu/RSV negative, UA with leukoesterase 100, white blood cells seen and 4+ bacteria. Patient did still have some decreased mental status so she was given gentle IV fluids and IV antibiotics and hospitalist contacted for admission for her UTI and mental status. Given her history of being on multiple agents that could suppress respiratory drive with her history of sleep apnea asked that a blood gas be obtained. Initial blood glass with a pH of 7.18, CO2 98.6 and PO2 of 98. Evaluated patient with family at bedside, patient tired but would wake up with multiple prompting, ultimately patient did confirm that she was full code, complained mostly of a headache and confirmed that she did not wear her BiPAP last night, unable to obtain further history given mental status and BiPAP actively being placed due to her acute hypercapnic respiratory failure. The only other additional history is as above, that she had a little bit of cough but had complained of burning on urination starting yesterday. Patient initially had BiPAP placed in the ED but after 2 minutes it was taken off as she was nauseous, she was given Zofran and it was replaced, she was put on AVAPS which she was tolerating and had been on it for about an hour. I went to evaluate patient at bedside and she seemed to have decreased responsiveness and now had systolic blood pressure in the 80s. Repeat ABG showed a pH of 7.1 with a PCO2 of 98.6 and PO2 now 72. Patient intubated at bedside with improvement and sat and after patient was hooked up to ventilator blood pressure improved to 120 systolic. Attempted to call patient's sister, only number listed on file but no answer [facility] Medical History H/O long-term (current) use of anticoagulants Falls frequently FTT (failure to thrive) in adult Chronic anemia Compression fracture of T6 vertebra Compression fracture of T5 vertebra Cancer CPAP (continuous positive airway pressure) dependence Sleep apnea Coronary artery disease Myocardial infarct DVT (deep venous thrombosis) Seizures DVT (deep vein thrombosis) in Cardiopulmonary arrest with successful resuscitation Wears dentures Wears glasses Back pain TIA (transient ischemic attack) GERD (gastroesophageal reflux disease) BiPAP (biphasic positive airway pressure) dependence Former smoker On home oxygen therapy Cardiology follow-up encounter Hx of echocardiogram Hx of cardiovascular stress test Essential hypertension MSSA (methicillin susceptible Staphylococcus aureus) pneumonia Restrictive lung disease Chronic narcotic dependence Pulmonary embolism Diastolic dysfunction Syncope and collapse STEPHANIE (obstructive sleep apnea) HLD (hyperlipidemia) Anxiety and depression Morbid obesity Bilateral peripheral pulmonary emboli Hypothyroidism COPD (chronic obstructive pulmonary disease) Home Medications ?Medication ?Instructions ?Recorded ?Last Taken ?Type compr.stocking,thigh,reg,x-lrg #24 ea 01/15/24 Unknown Rx miscellaneous medical supply 1 ea miscellaneous DAILY debility 01/16/24 Unknown Rx #1 ea miscellaneous medical supply 1 ea miscellaneous DAILY #1 ea 04/29/24 Unknown Rx miscellaneous medical supply 1 ea miscellaneous DAILY #1 ea 04/29/24 Unknown Rx rosuvastatin 10 mg tablet 10 mg PO DAILY cholesterol 1 month 06/23/24 Unknown Rx #30 tabs albuterol sulfate 90 mcg/actuation 2 puff inhalation Q6H PRN 06/26/24 Unknown Rx aerosol inhaler shortness of breath or wheezing #8.5 grams miscellaneous medical supply #1 ea 07/08/24 Unknown Rx ondansetron HCl 4 mg tablet 4 mg PO Q8H PRN nausea and 07/08/24 Unknown Rx vomiting #30 tabs miscellaneous medical supply #1 ea 07/29/24 Unknown Rx naloxone 4 mg/actuation nasal spray 1 spray intranasal Q2M PRN opioid 08/12/24 Unknown History overdose sennosides 8.6 mg-docusate sodium 1 tab-cap PO DAILY 08/12/24 Unknown History 50 mg tablet (Senexon-S) acetaminophen 325 mg tablet 650 mg (2 x 325 mg) PO Q4H PRN PRN 08/15/24 Unknown Rx Fever, pain 1-05/01 #0 tabs lorazepam 1 mg tablet 1 mg PO 0100,0700,1300,1900 #0 tabs 08/15/24 Unknown Rx methadone 10 mg tablet 10 mg PO Q8 #0 tabs 08/15/24 Unknown Rx oxycodone 15 mg tablet 15 mg PO Q4H PRN pain 3 days #10 08/15/24 Unknown Rx tabs mupirocin 2 % topical ointment 1 applic topical BID #22 grams 08/28/24 Unknown Rx polyethylene glycol 3350 17 4 g PO DAILY stool softener #119 10/29/24 Unknown Rx gram/dose oral powder (Miralax) grams metoprolol succinate 100 mg 50 mg PO DAILY PRN blood pressure 11/14/24 Unknown History tablet,extended release 24 hr furosemide 20 mg tablet 30 mg (1.5 x 20 mg) PO DAILY 12/17/24 Unknown Rx diuretic #45 TABLETS venlafaxine 150 mg 150 mg PO DAILY depression #90 caps 12/29/24 Unknown Rx capsule,extended release 24 hr (Effexor XR) cholecalciferol (vitamin D3) 1,250 1,250 mcg PO QWEEK supplement #8 12/30/24 Unknown Rx mcg (50,000 unit) capsule caps mirtazapine 7.5 mg tablet 7.5 mg PO QHS sleep #30 tabs 01/06/25 Unknown Rx carbidopa 25 mg-levodopa 100 mg 2 tab PO .QID #240 tabs 01/08/25 Unknown Rx tablet lacosamide 200 mg tablet 200 mg PO BID #60 tabs 01/08/25 Unknown Rx levetiracetam 750 mg tablet 750 mg PO BID seizures #60 tabs 01/08/25 Unknown Rx apixaban 5 mg tablet (Eliquis) 5 mg PO BID blood thinner #60 tabs 03/02/25 Unknown Rx losartan 100 mg tablet (Cozaar) 100 mg PO DAILY blood pressure #90 03/05/25 Unknown Rx tabs omeprazole 20 mg capsule,delayed 20 mg PO DAILY acid reflux #30 caps 03/05/25 Unknown Rx release Allergy/AdvReac Type Severity Reaction Status Date / Time aspirin Allergy Hives Verified 03/08/25 15:55 dicyclomine Allergy Itching Verified 03/08/25 15:55 ibuprofen Allergy Hives Verified 03/08/25 15:55 ketorolac tromethamine (From Allergy Angioedema Verified 03/08/25 15:55 Toradol) nut - unspecified Allergy Hives Verified 03/08/25 15:55 Penicillins (PCN) Allergy Hives Verified 03/08/25 15:55 tramadol HCl (From Ultram) Allergy Angioedema Verified 03/08/25 15:55 Family History Brother Myocardial infarction Asthma Mental disorder Psychiatric care Suicide attempt Father Colon cancer Brother Mental disorder Aunt Parkinson disease Sister Breast cancer Cervical cancer Ovarian cancer Sister Cervical cancer Ovarian cancer Mother Cancer leukemia History of blood clots Hypertension Surgical History History of cardiac catheterization History of lumpectomy of left breast History of esophagogastroduodenoscopy (EGD) History of cholecystectomy S/P lumpectomy, left breast History of left breast biopsy History of hysterectomy Hx of appendectomy History of left heart catheterization (LHC) (~04/22/21) Social History household members: family current occupational status: disabled Smoking Status: Former smoker quit date: 01/21/16 pack-years: 32 Electronic Cigarette Use: not used second hand exposure: Yes alcohol intake: never substance use type: does not use do you feel safe at home: No ROS ROS Narrative Patient with burning on urination that started yesterday, decreased level consciousness, unable to obtain any further ROS from patient at this time aside from some headache and neck aching Vital Signs Vital Signs Vital Signs: 03/08/25 15:52 03/08/25 16:52 03/08/25 16:55 Temperature 99.9 F H 98.7 F Temperature Source Oral Core Pulse Rate 102 H 96 96 Respiratory Rate 14 12 11 L Blood Pressure 137/82 H 135/87 H 136/78 H Blood Pressure Mean 100 103 97 Pulse Ox 95 100 100 Oxygen Delivery Method Nasal Cannula Nasal Cannula Nasal Cannula Oxygen Flow Rate (L/min) 4 4 Fraction of Inspired Oxygen (FIO2) 03/08/25 17:00 03/08/25 17:59 03/08/25 18:02 Temperature 98.6 F Temperature Source Core Pulse Rate 94 Respiratory Rate 10 L Blood Pressure 136/78 H Blood Pressure Mean 97 Pulse Ox 100 100 Oxygen Delivery Method Nasal Cannula Nasal Cannula Nasal Cannula Oxygen Flow Rate (L/min) 4 4 3 Fraction of Inspired Oxygen (FIO2) 03/08/25 18:03 03/08/25 18:10 03/08/25 18:18 Temperature 98.4 F 98.3 F Temperature Source Core Pulse Rate 99 96 102 H Respiratory Rate 12 14 21 H Blood Pressure 136/75 H 136/75 H Blood Pressure Mean 95 95 Pulse Ox 99 100 97 Oxygen Delivery Method Nasal Cannula Oxygen Flow Rate (L/min) 3 Fraction of Inspired Oxygen (FIO2) 35 03/08/25 18:48 03/08/25 19:41 03/08/25 19:56 Temperature 97.8 F Temperature Source Core Pulse Rate 100 92 95 Respiratory Rate 94 H 13 11 L Blood Pressure 77/48 L Blood Pressure Mean 57 Pulse Ox 16 93 95 Oxygen Delivery Method Bi-pap Oxygen Flow Rate (L/min) Fraction of Inspired Oxygen (FIO2) 35 40 03/08/25 20:00 03/08/25 20:21 Temperature 97.9 F Temperature Source Core Pulse Rate 90 90 Respiratory Rate 10 L 15 Blood Pressure 75/57 L 84/53 L Blood Pressure Mean 63 63 Pulse Ox 92 95 Oxygen Delivery Method Room Air Bi-pap Oxygen Flow Rate (L/min) Fraction of Inspired Oxygen (FIO2) 40 Weight Weight: 133.9 kg Body Mass Index (BMI) 47.6 Physical Exam Narrative General: Patient initially arousable and it would take multiple prompts but would answer some questions, on reevaluation patient would not wake up HEENT: Atraumatic, normocephalic Eyes: Anicteric, normal conjunctiva, extraocular movements grossly intact Neck: Supple Respiratory: Diminished bilaterally with hypoventilation and poor respiratory effort Cardiovascular: Regular rate and rhythm GI: Soft, nontender, nondistended Extremities: No edema Musculoskeletal: Moving all extremities Neuro: No overt focal neurological deficits Skin: No rashes appreciated Psych: Attempts to be cooperative Results Lab / Micro Data 03/08/25 16:00 03/08/25 16:00 Labs: Laboratory Results - last 24 hr 03/08/25 16:00: WBC 7.8, RBC 3.88 L, Hgb 9.4 L, Hct 32.1 L, MCV 82.7, MCH 24.2 L, MCHC 29.3 L, RDW Std Deviation 43.2, RDW Coeff of Immanuel 14.3, Plt Count 223, MPV 10.6, Immature Gran % (Auto) 0.300, Neut % (Auto) 66.4, Lymph % (Auto) 25.5, [place] % (Auto) 5.4, Eos % (Auto) 1.9, Baso % (Auto) 0.5, Absolute Neuts (auto) 5.2, Absolute Lymphs (auto) 1.98, Nucleated RBC % 0, PT 13.7, INR 1.0, APTT 31.6, Sodium 135, Potassium 4.7, Chloride 96 L, Carbon Dioxide 30.9, Anion Gap 8, BUN 23 H, Creatinine 1.46 H, Estim Creat Clear Calc 58.38, Est GFR (MDRD) Non-Af 41 L, BUN/Creatinine Ratio 15.7, Glucose 115 H, Lactic Acid < 1.0, Calcium 9.6, Total Bilirubin 0.30, AST 89 H, ALT 13, Alkaline Phosphatase 155 H, Total Protein 8.0, Albumin 4.1, Globulin 4.0, Albumin/Globulin Ratio 1.0 03/08/25 16:50: Urine Color Yellow, Urine Clarity Sl. Cloudy, Urine pH 5.0, Ur Specific [place] 1.025, Urine Protein 15 H, Urine Glucose (UA) Normal, Urine Ketones Negative, Urine Occult Blood 10 H, Urine Nitrite Negative, Urine Bilirubin Negative, Urine Urobilinogen Normal, Ur Leukocyte Esterase 100 H, Urine RBC 0-5 SEEN, Urine WBC 10-25 SEEN, Ur Squamous Epith Cells 0-5 SEEN, Urine Bacteria 4+, Urine Mucus 0 SEEN Micro: Microbiology 03/08/25 16:07 Mucosa - Nose SARS-CoV-2, Influenza & RSV (PCR) - Final ABG Data ABG results: ABG 03/08/25 03/08/25 18:02 20:00 Specimen Type ART ART Sample Site R Radial L Radial pH 7.18 L* 7.10 L* Bicarbonate Actual 33.5 H 30.9 H Total CO2 36 34 Base Excess 5 H 1 O2 Saturation 95 86 L O2 % 4.0 40.0 ABG pCO2 89.8 H* 98.6 H* ABG pO2 98 72 L Олег Test Positive Positive Respiration Rate 12 O2 Delivery Device Cannula BiPAP Vent Mode Not entered avaps Tidal Volume 500.0 POC PEEP 10 Crit Call To/Read Back Yes Yes Blood Gas Notified Whom adrienne Blood Gas Notified Time 20:01:26 Imaging Radiology Impression Brain CT 03/08/25 16:21 IMPRESSION: No acute abnormality [facility] C[facility]ine CT 03/08/25 16:21 IMPRESSION: Negative for fracture Reading [facility] Chest X-Ray 03/08/25 16:28 IMPRESSION: Suboptimal inspiration. No evidence of acute cardiopulmonary disease. Reading Location: [id number] Assessment & Plan Assessment/Plan (1) Acute hypercapnic respiratory failure: (2) UTI (urinary tract infection): PLAN: Plan # Acute hypercapnic respiratory failure - Patient on lorazepam and methadone and oxycodone and did not wear her BiPAP last night on top of a UTI and LEIGH ANN causing worsening hypercapnia with decreased mental status and acidosis that further worsened despite BiPAP/AVAPS trial and then became hypoxic on repeat ABG in addition to more hypercapnic and acidotic - Patient ultimately required intubation, did discuss this possibility with patient before she was initially placed on BiPAP when she was able to answer some questions and she and sister were in agreement that she was full code and that she would want to be intubated if necessary, proceeded with intubation. Attempt to contact sister at number on file to update the patient was indeed intubated but no answer - Do not suspect a primary respiratory process/hypoventilation, with patient's dehydration and LEIGH ANN she likely had altered clearance of her methadone and possibly other medications and then not wearing her BiPAP on top of that led to the above - Will consult area manager for vent management - Treat underlying UTI, fluids for her LEIGH ANN - She will be on fentanyl drip for sedation - Will decrease lorazepam dose in the acute setting, ultimately whole regimen may need to be reexamined especially if she is not going to consistently wear her BiPAP and wants to remain full code # Acute metabolic encephalopathy suspected secondary to UTI and dehydration and hypercapnia -Patient with UA suspicious for UTI, will continue antibiotics while pending culture and sensitivity data -CT head no acute process -Did get ABG given her history which showed hypercapnia and acidosis as above -There was no seizure activity reported or other concerns that this may have been seizure related, suspect this is partially metabolic with a large toxic component due to home medications and worsening hypercapnia - BP initially fine, as patient became more hypoxic and hypercapnic it did downtrend however after intubation improved, we will hold off on home antihypertensives at this time however # Suspected LEIGH ANN - Baseline creatinine was to 1 - Creatinine today 1.46 - Received IV fluids in the ED, will hold Lasix at this time but hold off on further fluid and can continue to evaluate for need for further fluid - Repeat in the a.m. - Consider further workup if any further worsening - Hold losartan #STEPHANIE - Patient intubated # Chronic hypoxic respiratory failure with Hx COPD 3 L home O2 - Breathing treatments - I-S once patient extubated #Depression/anxiety -Continue home medications # Parkinson's disease - continue home Sinemet - supportive care -Does appear per Dr. 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 at time of admission -Complicates treatment, prognosis, outcomes -Recommend weight loss and lifestyle changes #Hx PE - Continue home Eliquis #GERD -Continue PPI #DVT ppx: Patient on home Eliquis Selena Covington MD Time spent in the patient's overall evaluation,decision-making process, review of diagnostic data, adjustment of management, discussion with other providers, nursing nursing and ancillary staff involved in patient's care documentation, 90 Minutes Charges/Coding Visit Charges Inpatient E&M: 32572 Init Hosp L3
--- NOTE | 2025-03-08 21:10 | RAD_ITS ---
PROCEDURE: CHEST 1 VIEW 03/08/2025 REASON FOR EXAM: ETT PLACEMENT, OG PLACEMENT TECHNIQUE: Frontal view of the chest. COMPARISON: Chest x-ray earlier same day FINDINGS: Hardware: Endotracheal tube tip projects about 2.5 cm above the basilio. Enteric tube tip and side port projects over the stomach lumen. Heart: Heart size is mildly enlarged. Lungs: Diffuse pulmonary vascular congestion. Left lung base consolidation. No definite pneumothorax Bones: The bones are unremarkable. RAD/Chest 1 View IMPRESSION: 1. Endotracheal and enteric tubes in appropriate positions. 2. Left lung base consolidation. 3. Mild cardiomegaly and diffuse pulmonary vascular congestion. Reading [facility]
--- OUTSIDE RECORDS SUMMARY | 2025-03-08 21:17 | XMS RPT_ITS | CCD ---
Author Organization [facility] CliniSyla Care Team Providers Care Shingle Carrier Name Role Phone Alba Cedeno Unavailable Unavailable Get Christianson DO Unavailable Brianna Campo Unavailable Unavailable Kee Bagley MD Unavailable Ryanne STEWART, Caitlyn Boggs Unavailable [place] CONST[place], Alba Amy Unavailable Unavaila ble [place] CONST[place], Latoya A Unavailable Unavailab Yolanda Aguilar Unavailable Unavailable NEELIMAJULIAN Unavailable Unavailable NEELIMAJULIAN Unavailable Unavailable [place] CON[place], Latoya A Unavailable Unavailab le [place] CON[place], Alba Amy Unavailable Unavaila ble [place] CONST[place], Alba Amy Unavailable Unavaila ble Brianna Campo [...] Provider Dr. Alvarez Montanez Referring Provider Phylicia PORTABLE ROUTER OPERATOR, PORTABLE ROUTER OPERATOR-C Carline Summers Attending Provider Layla PORTABLE ROUTER OPERATOR, PORTABLE ROUTER OPERATOR-C Rhea Attending Provider Dr. Chapincito Castro Attending Provider Dr. Alvarez Montanez Primary Care Provider Dr. Ajay Millard Attending Provider Nas Boogie DO Primary Care Provider Dr. Alvarez Montanez Primary Care Provider Dr. Alvarez Montanez Referring Provider Phylicia PORTABLE ROUTER OPERATOR, PORTABLE ROUTER OPERATOR-C Carline Summers Attending Provider Dr. Alvarez [...] [phone] Dr. Ysabel Ruffin Referring Provider [phone] Dr. Sravan Acevedo Emergency Provider Dr. Kee [...] Provider Gloria BATISTA, Dr. Beckham Attending Provider [phone] [place], Ysabel Primary Care Unavailable White, Aleksandra L Consulting Unavailable White, Aleksandra L Attending Unavailable White, Aleksandra L Admitting Unavailable [place], Ysabel Primary Care Unavailable White, Aleksandra L Consulting Unavailable Juan Antonio, Nick Attending Unavailable White, Aleksandra L Admitting Unavailable Juan Antonio, Nick Consulting Unavailable Alexander Ye Attending Unavailable Alexander Ye Consulting Unavailable Lazarus, Crow Admitting Unavailable Crow Qiu Attending Unavailable Mosteller, Crow Consulting Unavailable Laly, Ysabel Primary Care Unavailable Mosteller, Crow Admitting Unavailable [place], Ysabel Primary Care Unavailable Mostmichael, Crow Consulting [...] Zepedaily Attending Unavailable Laly, Ysabel Attending Unavailable [place], Ysabel Primary Care Unavailable Laly, Ysabel Referring [...] Consulting Unavailable Juan Antonio, Nick Consulting Unavailable [place], Ysabel Primary Care Unavailable Laly, Ysabel Referring Unavailable Sofia Carter Attending Unavailable Laly, Ysabel Attending Unavailable Laly, Ysabel Primary Care Unavailable Laly, Ysabel Primary Care Unavailable Viviana Avendano Attending Unavailabl e Laly, Ysabel Primary Care Unavailable Chloé Zepeda Attending Unavailable [place], Ysabel Attending Unavailable [place], Ysabel Primary Care Unavailable [place], Ysabel Referring Unavailable Chapincito Castro Attending Unavailable Laly, Ysabel Referring Unavailable Laly, Ysabel Primary Care Unavailable Laly, Ysabel Primary Care Unavailable [place], Ysabel Referring Unavailable Chapincito Castro Attending Unavailable Laly, Ysabel Primary Care Unavailable Callum Knutson Attending Unavailable [place], Ysabel Primary Care Unavailable [place], Ysabel Attending Unavailable [place], Ysabel Primary Care Unavailable Oli Fu Attending Unavailable [place], Ysabel Primary Care Unavailable White, Aleksandra L Consulting Unavailable White, Aleksandra L Admitting Unavailable Alexander Ye Attending Unavailable Juan Antonio, Nick Consulting Unavailable [place], Ysabel Primary Care Unavailable Laly, Ysabel Referring Unavailable Oli Fu Attending Unavailable Laly, Ysabel Primary Care Unavailable Laly, Ysabel Referring Unavailable Oli Fu Attending Unavailable [place], Ysabel Attending Unavailable Laly, Ysabel Referring Unavailable [place], Ysabel Primary Care Unavailable Allergies Allergy Classification Reported Allergen(s) Allergy Type Date of Onset Reaction(s) Facility (19 sources) dicyclomine drug allergy 10-11-19 17 itching [facility] Work Phone: (20 sources) ibuprofen drug allergy 10-11-19 17 hives [facility] Work Phone: (20 sources) ketorolac drug allergy 04-03-20 12 Hives [facility] Work Phone: (19 sources) meperidine drug allergy 10-11-19 17 [facility] Work Phone: (19 sources) nitroglycerin drug allergy 10-11-19 17 headache and tongue swelling [facility] Work Phone: (19 sources) penicillin v drug allergy 10-11-19 17 hives [facility] Work Phone: (20 sources) traMADol drug allergy 10-11-19 17 andioedema, Angioedema [facility] Work Phone: (19 sources) ASPIR-81 drug allergy 10-11-19 17 hives [facility] Work Phone: (3 sources) ketorolac Drug Allergy 10-11-19 17 angioedema [facility] Work Phone: (20 sources) aspirin; Translations: [ASPIRIN] Drug Allergy 08-24-19 14 Swelling [facility] Repository (20 sources) ketorolac; Translations: [KETOROLAC TROMETHAMINE] Drug Allergy 04-03-20 12 AOF, Angioedema [facility] Repository (20 sources) meperidine; Translations: [MEPERIDINE (PF)] Drug Allergy 06-26-20 09 [facility] (20 sources) onion extract; Translations: [ONION] Drug Allergy 11-20-19 13 Anaphylaxis, Hives, Swelling [facility] Repository (20 sources) peach allergenic extract; Translations: [PEACH] Drug Allergy 11-20-19 13 Anaphylaxis [facility] Rep[facility] (20 sources) peanut allergenic extract; Translations: [PEANUT] Drug Allergy 11-20-19 13 Anaphylaxis [facility] Rep[facility] (20 sources) Penicillins; Translations: [PENICILLINS] Propensity to adverse reactions to drug (disorder) 06-26-20 09 Hives, Swelling [facility] Repository (20 sources) Shellfish; Translations: [SHELLFISH] Propensity to adverse reactions to food (disorder) 11-20-19 13 Anaphylaxis [facility] (20 sources) traMADol; Translations: [TRAMADOL] Drug Allergy 06-26-20 09 Hives [facility] Rep[facility] (20 sources) FISH; Translations: [FISH] Propensity to adverse reactions to food (disorder) 11-20-19 13 Swelling [facility] (20 sources) Dicyclomine Drug Allergy 10-11-19 22 Itching [facility] (14 sources) Meperidine Drug Allergy 10-11-19 22 seizures [facility] Work Phone: (14 sources) Nitroglycerin Drug Allergy 10-11-19 Angioedema [facility] Work Phone: (20 sources) nut - unspecified; Translations: [nut - unspecified] Allergy to substance 10-11-19 22 Hives [facility] (11 sources) Fish Oils; Translations: [FISH OIL] Drug Allergy 10-12-19 16 Swelling [facility] Work Phone: (11 sources) Meperidine; Translations: [MEPERIDINE] Drug Allergy 02-10-20 15 [facility] (11 sources) Naproxen; Translations: [NAPROXEN] Drug Allergy 07-29-19 16 [facility]: (2 sources) peach allergenic extract; Translations: [PRUNUS PERSICA] Drug Allergy 10-12-19 16 [facility] (2 sources) peanut oil; Translations: [PEANUT OIL] Drug Allergy 10-12-19 16 [facility] (11 sources) Shellfish; Translations: [SHELLFISH ALLERGY] Propensity to adverse reactions to drug 10-12-19 16 [facility] (9 sources) [place] Propensity to adverse reactions to drug 10-12-19 16 [facility] (9 sources) Peanut oil Propensity to adverse reactions to drug 10-12-19 16 [facility] (1 source) Dicyclomine Drug Allergy 01-09-20 [facility] Repository (1 source) Ibuprofen Drug Allergy 01-09-20 [facility] (1 source) traMADol Drug Allergy 01-09-20 [facility] Repository Medications Current Medications Medication Drug Class(es) [...] by epifanio every 8 hours as needed. [id number] 200 actuat albuterol 0.09 mg/actuat metered dose [...] every 4 hours as needed ALBUTEROL SULFATE [id number] Yolanda Skinner Start: 03-29-2017 PROAIR HFA 108 (90 Base) MCG/ACT AERS 2 INH every 4 hours as needed ALBUTEROL SULFATE [id number] Yolanda Skinner Start: 03-29-2017 ALBUTEROL SULF ATE (2.5 MG/3ML) 0.083% NEBU 1 unit dose every 4 hours as needed ALBUTEROL SULFATE [id number] Yolanda Skinner Start: 03-29-2017 PROAIR HFA 108 (90 Base) MCG/ACT AERS 2 INH every 4 hours as needed ALBUTEROL SULFATE [id number] Yolanda Summers Brody Start: 11-24-2013 albuterol (PRO AIR HFA) inhaler 90 mcg/inh Inhale 2 Puffs. 11/24/2013 Active Comment on above: INHALE 2 PUFFS BY [facility] THREE TIMES A DAY NEEDED FOR SHORTNESS OF BREATH/WHEEZING/COUGH albuterol 0.833 mg/ml / ipratropium bromide 0.167 mg/ml inhalation solution (20 sources) Anticholinergic, beta2-Adrenergic Agonist Start: 2021 End: 2021 take 1 dose by inhalation every four hours as needed ipratropium-albut klaudia (DUONEB) 0.5 mg-3 mg(2.5 mg base)/3 mL nebu Indications: Asthma with chronic obstructive pulmonary disease (COPD) ([facility]) INHALE 1 VIAL VIA NEBULIZER EVERY 4 HOURS NEEDED 100 Each 0 06/28/2022 Active Start: 08-22-2021 End: 10-24-2021 take 1 dose by inhalation every four hours as needed ipratropium-albuterol (DUONEB) 0.5 mg-3 mg(2.5 mg base)/3 mL nebu Indications: Asthma with chronic obstructive pulmonary disease (COPD) ([facility]) INHALE 1 VIAL VIA NEBULIZER EVERY 4 [...] Start: 03-11-2015 take 1 capsule by mo [facility] once daily Cholecalciferol (VITAMIN D) 2000 UNITS CAPS Indications: Vitamin D deficiency Take 2,000 Units by mouth daily. 30 Cap 11 03/11/2015 Active clonazePAM 0.5 mg oral tablet (20 sources) Benzodiazepine Start: 08-22-2021 End: 05-10-2022 clonazePAM (KLONOPIN) 0.5 mg tablet Take 1 tablet by mouth twice daily. Per [facility]. 0 08/22/2021 Active Start: 05-09-2021 End: [...] Comment on above: [facility] Per [facility]. COMPOUNDED PRESCRIPTION (20 sources) Start: 03-11-2018 [...] directed docusate sodium 50 mg / sennosides, shelter 8.6 mg oral tablet (6 sources) Start: [...] MCG/ACT AERO 20 06/10/29 MOMETASONE FURO-FORMOTEROL FUM [id number] Yolanda Skinner Start: 10-19-2016 DULERA 200-5 M CG/ACT AERO MOMETASONE FURO-FORMOTEROL FUM [id number] Yolanda Skinner Start: 10-19-2016 End: 01-02-2017 DULERA 200-5 MCG/ACT AERO 20 06/10/29 MOMETASONE FURO-FORMOTEROL FUM [id number] Get Christianson DO Comment on above: Inhale [...] q4hrs prn anxiety Comment on above: From [employer]. meloxicam 7.5 mg oral tablet (11 sources) [...] PO DAILY June 23, 2024 1:00am sennosides, shelter 8.6 mg oral tablet (3 sources) Start: [...] 1 tab po q4h as needed HYDROCODONE-ACETAMINOPHEN [id number] Alba Dukes LPN Start: 09-30-2016 End: 10-06-2016 [...] 04, 2016 8:31am Comment on above: From [facility] Albuterol 90 mcg/actuation aerosol (5 sources) Start: [...] 2 puffs twice daily BUDESONIDE-FORMOTERO L FUMARATE [id number] Alba Dukes LPN Start: 10-10-2016 take 2 puff(s) by in halation twice daily SYMBICORT 160-4.5 MCG/ACT AERO INH 2 puffs twice daily BUDESONIDE-FORMOTEROL FUMARATE [id number] Alba Dukes LPN Start: 10-10-2016 End: 10-19-2016 take 2 puff(s) by inhalation twice daily SYMBICORT 160-4.5 MCG/ACT AERO INH 2 puffs twice daily BUDESONIDE-FORMOTEROL FUMARATE [id number] Yolanda Skinner Start: 10-06-2016 End: 03-02-2021 Budesonide-Formoterol [...] TABS One tablet by mouth daily CALCIUM [id number] Alba Amy [place] Start: 10-10-2016 take 1 tablet by epifanio th once daily CALCIUM 600 MG TABS One tablet by mouth daily CALCIUM [id number] Alba Amy [place] calcium carbonate 1500 mg oral tablet (20 sources) Start: 10-10-2016 take 1 tablet by mouth once daily CALCIUM 600 MG TABS One tablet by mouth daily CALCIUM [id number] Alba Amy [place] CON[place] End: 02-20-2022 take 1 tablet by mouth [...] twice daily MUCINEX MAXIMUM STRENGTH 1200 MG [id number] One tablet by mouth twice daily GUAIFENESIN 13224072647 Alba Amy [place] Start: 10-06-2016 take 1 tablet by epifanio th twice daily MUCINEX MAXIMUM STRENGTH 1200 MG [id number] One tablet by mouth twice daily GUAIFENESIN [id number] Alba Amy [place] iv contrast (will be provide d with [...] CPDR One tablet by mouth daily LANSOPRAZOLE [id number] Arin Katelyn Shea NP Start: 01-03-2016 End: [...] One tablet by mouth daily LEVOTHYROXINE SODIUM [id number] Alba Dukes LPN Start: 01-03-2016 End: 03-02-2021 [...] tablet by mouth twice daily LOSARTAN POTASSIUM [id number] Alba Grimaldoyumiko Dukes LPN Start: 01-03-2016 End: [...] by epifanio th daily at bedtime. Per [facility]. Mometasone-Formoterol (Dulera) 100-5 mcg/actuation Hfa Aerosol [...] MG CPDR one tab once daily OMEPRAZOLE [id number] Arin Shea PORTABLE ROUTER OPERATOR Comment on above: Take 1 capsule by [facility] once daily. ondansetron 4 mg oral [...] December 12, 2021 3:48pm polyethylene glycol 3350 04594 mg powder for oral solution (20 sources) [...] TABS One tablet by mouth daily PREDNISONE [id number] Alba Dukes LPN Start: 09-30-2016 End: 10-06-2016 [...] mouth once daily. Plus 75 mg capsule. [facility]. 0 09/02/2020 07/29/2022 Discontinued Start: 05-13-2020 End: 08-24-2022 take 1 capsule by mouth once daily Venlafaxine 75 mg capsule,extended release 24hr Discontinued 75 mg PO DAILY March 02, 2021 12:00am August 24, 2022 5:15pm Start: 10-10-2016 End: 01-18-2017 take 3 tablets by mouth once daily EFFEXOR XR 75 MG [id number] Three tablets by mouth daily VENLAFAXINE HCL [id number] Alba Dukes LPN Start: 10-10-2016 End: 01-18-2017 take 3 tablets by mouth once daily EFFEXOR XR 75 MG [id number] Three tablets by mouth daily VENLAFAXINE HCL 53513571607 Kee Bagley MD Start: 10-10-2016 take 3 tablets by mo uth once daily EFFEXOR XR 75 MG [id number] Three tablets by mouth daily VENLAFAXINE HCL [id number] Alba [place] CONST[place] Start: 01-03-2016 End: 08-01-2017 take 3 tablets [...] (20 sources) Dependence on supplemental oxygen; Translations: [Kxcjv-ah-atrhxah respiratory failure] Onset: 7 10-19-2016 Chronic Sprains [...] and Bladderon 025 Kidney and Bladder Normal [facility] Neurology Visit Reporton Neurology Visit Report Normal [facility] KEPPRA (LEVETIRACETAM)on KEPPRA 66.1 ug/mL Abnormal 10.0-40.0 [facility] Comment on above: Result Comment: Perf ormed at: - [facility] [id number] Director: Azalia Rosen MD, Phone: [phone] Performed By: #### L 503.5510, L3310.0000 ####[facility] [address] [place], [place], [id number] Immunofixation Urineon 01-01 MARCELA Urine Comment Normal . [facility] Comment on above: Result Comment: No m onoclonality detected.Performed at: - [facility] [id number] Director: Eliseo Yañez PhD, Phone: [phone] Performed By: #### L 3600.4030 ####[facility] [address] [place], [address] Urine Cultureon 12-31-2024 URC Normal [facility] Comment on above: Performed By: #### L 400.0001, M100.2200 ####[facility] [address] [place], [place], [id number] Absolute lymphocyte countOrd ered By: Ysabel Laly on 12-29-2024 Lymphocytes Auto (Unsp spec) [#/Vol] 1.75 10*3/uL 0.83-4.51 [facility] Absolute neutrophil countOrd ered By: Ysabel Laly on 12-29-2024 Neutrophils (Bld) [#/Vol] 3.4 10*3/uL 2.0-7.7 [facility] Ammoniaon 12-29-2024 Ammonia (P) [Moles/Vol] 36.3 umol/L Normal 11-51 [facility] Comment on above: Performed By: #### L 503.5510, L3310.0000 ####[facility] [address] [place], [place], [id number] Anion gap in Serum or Plasma Ordered By: Ysabel [place] on 12-29-2024 Anion gap [Moles/Vol] 9 mmol/L 5-15 [facility] Automated lymphocyte count a s percentage of total leukocytesOrdered By: Ysabel Laly on 12-29-2024 Lymphocytes/100 WBC Auto (Unsp spec) 30.2 % 19-41 [facility] BUN/creatinine ratioOrdered By: Ysabeljames Ruffin on 12-29-2024 Urea nitrogen/Creatinine [Mass ratio] 20.8 mg/mg High 10-20 [facility] Basophil percentageOrdered B y: Ysabel [place] on 12-29-2024 Basophils/100 WBC (Bld) 0.7 % 0-1 [facility] Bilirubin Test strip Ql (U)O rdered By: Ysabel [place] on 12-29-2024 Bilirubin Ql (U) Negative Negative [facility] Bilirubin, totalOrdered By: Ysabel Laly on 12-29-2024 Bilirubin [Mass/Vol] mg/dL 0.00-1.30 [facility] CBC W/Diff, Automatedon Absolute Lymph 1.75 X10 3/uL Normal 0.83-4.51 [facility] Comment on above: Performed By: #### L 506.1001, L100.0100, L501.9520, L500.4050 ####[facility] [address] [place], [address] Absolute Neut 3.4 X10 3/uL Normal 2.0-7.7 [facility] Comment on above: Performed By: #### L 506.1001, L100.0100, L501.9520, L500.4050 ####[facility] [address] [place], [address] Basophils/100 WBC (Bld) 0.7 % Normal 0-1 [facility] Comment on above: Performed By: #### L 506.1001, L100.0100, L501.9520, L500.4050 ####[facility] [address] [place], [address] Eosinophils/100 WBC (Bld) 3.5 % Normal 0-5 [facility] Comment on above: Performed By: #### L 506.1001, L100.0100, L501.9520, L500.4050 ####[facility] [address] [place], [address] Erythrocyte distribution width (RBC) [Ratio] 14.6 % Normal 11.6-14.6 [facility] Comment on above: Performed By: #### L 506.1001, L100.0100, L501.9520, L500.4050 ####[facility] [address] [place], [address] Hematocrit (Bld) [Volume fraction] 28.4 % Low 37-47 [facility] Comment on above: Performed By: #### L 506.1001, L100.0100, L501.9520, L500.4050 ####[facility] [address] [place], [address] Hemoglobin (Bld) [Mass/Vol] 8.2 g/dL Low 12.0-15.0 [facility] Comment on above: Performed By: #### L 506.1001, L100.0100, L501.9520, L500.4050 ####[facility] [address] [place], [address] IG% 0.300 Normal 0.0-0.9 [facility] Comment on above: Result Comment: IG% - Immature Granulocytes (promyelocytes, myelocytes andmetamyelocytes) > 1% indicates that a LEFT SHIFT is Present. Performed By: #### L 506.1001, L100.0100, L501.9520, L500.4050 ####[facility] [address] [place], [address] Lymphocytes/100 WBC (Bld) 30.2 % Normal 19-41 [facility] Comment on above: Performed By: #### L 506.1001, L100.0100, L501.9520, L500.4050 ####[facility] [address] [place], [address] MCH (RBC) [Entitic mass] 24.2 pg Low 27.0-32.0 [facility] Comment on above: Performed By: #### L 506.1001, L100.0100, L501.9520, L500.4050 ####[facility] [address] [place], [address] MCHC (RBC) [Mass/Vol] 28.9 g/dL Low 32-36 [facility] Comment on above: Performed By: #### L 506.1001, L100.0100, L501.9520, L500.4050 ####[facility] [address] [place], [address] MCV (RBC) [Entitic vol] 83.8 fL Normal 81-99 [facility] Comment on above: Performed By: #### L 506.1001, L100.0100, L501.9520, L500.4050 ####[facility] [address] [place], [address] Monocytes/100 WBC (Bld) 7.4 % Normal 0-10 [facility] Comment on above: Performed By: #### L 506.1001, L100.0100, L501.9520, L500.4050 ####[facility] [address] [place], [address] Neutrophils/100 WBC (Bld) 57.9 % Normal 47-70 [facility] Comment on above: Performed By: #### L 506.1001, L100.0100, L501.9520, L500.4050 ####[facility] [address] [place], [address] Nucleated RBC (Bld) [#/Vol] 0 10*3/uL Normal 0-5 [facility] Comment on above: Performed By: #### L 506.1001, L100.0100, L501.9520, L500.4050 ####[facility] [address] [place], [address] Platelet mean volume (Bld) [Entitic vol] 11.1 fL Normal 6.2-12.0 [facility] Comment on above: Performed By: #### L 506.1001, L100.0100, L501.9520, L500.4050 ####[facility] [address] [place], [address] Platelets (Bld) [#/Vol] 244 10*3/uL Normal 150-450 [facility] Comment on above: Performed By: #### L 506.1001, L100.0100, L501.9520, L500.4050 ####[facility] [address] [place], [address] RBC (Bld) [#/Vol] 3.39 10*6/uL Low 4.2-5.4 [facility] Comment on above: Performed By: #### L 506.1001, L100.0100, L501.9520, L500.4050 ####[facility] [address] [place], [address] RDW SD 44.8 fl High 35.1-43.9 [facility] Comment on above: Performed By: #### L 506.1001, L100.0100, L501.9520, L500.4050 ####[facility] [address] [place], [address] WBC (Bld) [#/Vol] 5.8 10*3/uL Normal 4.4-11.0 [facility] Comment on above: Performed By: #### L 506.1001, L100.0100, L501.9520, L500.4050 ####[facility] [address] [place], [address] Carbon dioxide, total [Moles /volume] in Central venous bloodOrdered By: Ysabel Ruffin on 12-29-2024 CO2 [Moles/Vol] 29.0 mmol/L 21.0-32.0 [facility] Chloride assayOrdered By: Wilman Ruffin on 12-29-2024 Chloride [Moles/Vol] 101 mmol/L 98-108 [facility] Comprehensive Metabolic Prof ilon 12-29-2024 Albumin [Mass/Vol] 3.8 g/dL Normal 3.5-5.0 [facility] Comment on above: Performed By: #### L 506.1001, L100.0100, L501.9520, L500.4050 ####[facility] [address] [place], [address] Albumin/Globulin [Mass ratio] 1.2 {ratio} Normal 0.9-2.4 [facility] Comment on above: Performed By: #### L 506.1001, L100.0100, L501.9520, L500.4050 ####[facility] [address] [place], [address] ALK PHOS 106 U/L High 35-104 [facility] Comment on above: Performed By: #### L 506.1001, L100.0100, L501.9520, L500.4050 ####[facility] [address] [place], [address] ALT [Catalytic activity/Vol] 9 U/L Normal <=34 [facility] Comment on above: Performed By: #### L 506.1001, L100.0100, L501.9520, L500.4050 ####[facility] [address] [place], [address] AST [Catalytic activity/Vol] 36 U/L High <=31 [facility] Comment on above: Performed By: #### L 506.1001, L100.0100, L501.9520, L500.4050 ####[facility] [address] [place], [address] BUN/CRE 20.8 RATIO High 10-20 [facility] Comment on above: Performed By: #### L 506.1001, L100.0100, L501.9520, L500.4050 ####[facility] [address] [place], [address] Calcium [Mass/Vol] 9.2 mg/dL Normal 7.6-11.0 [facility] Comment on above: Performed By: #### L 506.1001, L100.0100, L501.9520, L500.4050 ####[facility] [address] [place], [address] Chloride [Moles/Vol] 101 mmol/L Normal 98-108 [facility] Comment on above: Performed By: #### L 506.1001, L100.0100, L501.9520, L500.4050 ####[facility] [address] [place], [address] CO2 [Moles/Vol] 29.0 mmol/L Normal 21.0-32.0 [facility] Comment on above: Performed By: #### L 506.1001, L100.0100, L501.9520, L500.4050 ####[facility] [address] [place], [address] Creatinine [Mass/Vol] 0.83 mg/dL Normal 0.70-1.20 [facility] Comment on above: Performed By: #### L 506.1001, L100.0100, L501.9520, L500.4050 ####[facility] [address] [place], [address] GAP 9 Normal 5-15 [facility] Comment on above: Performed By: #### L 506.1001, L100.0100, L501.9520, L500.4050 ####[facility] [address] [place], [address] GFR/1.73 sq M.predicted among non-blacks MDRD (S/P/Bld) [Vol rate/Area] 82 mL/min/{1.73_m2} Normal >60 [facility] Comment on above: Result Comment: mL/m in/1.73m2 CKD-EPI Creatinine Equation (2020) Performed By: #### L 506.1001, L100.0100, L501.9520, L500.4050 ####[facility] [address] [place], [address] Globulin (S) [Mass/Vol] 3.3 g/dL Normal 2.2-4.2 [facility] Comment on above: Performed By: #### L 506.1001, L100.0100, L501.9520, L500.4050 ####[facility] [address] [place], [address] Glucose [Mass/Vol] 116 mg/dL High 70-99 [facility] Comment on above: Performed By: #### L 506.1001, L100.0100, L501.9520, L500.4050 ####[facility] [address] [place], [address] Potassium [Moles/Vol] 4.4 mmol/L Normal 3.3-5.1 [facility] Comment on above: Performed By: #### L 506.1001, L100.0100, L501.9520, L500.4050 ####[facility] [address] [place], [address] Sodium [Moles/Vol] 139 mmol/L Normal 133-145 [facility] Comment on above: Performed By: #### L 506.1001, L100.0100, L501.9520, L500.4050 ####[facility] [address] [place], [address] T BILI < 0.15 Normal 0.00-1.30 [facility] Comment on above: Performed By: #### L 506.1001, L100.0100, L501.9520, L500.4050 ####[facility] [address] [place], [address] T PROT 7.1 g/dL Normal 5.9-8.4 [facility] Comment on above: Performed By: #### L 506.1001, L100.0100, L501.9520, L500.4050 ####[facility] [address] [place], [address] Urea nitrogen [Mass/Vol] 17 mg/dL Normal 4-19 [facility] Comment on above: Performed By: #### L 506.1001, L100.0100, L501.9520, L500.4050 ####[facility] [address] [place], [address] ALB Normal 3.5-5.0 [facility] Comment on above: Result Comment: DUP Performed By: #### L 500.4050 ####[facility] [address] [place], [address] ALK PHOS Normal 35-104 [facility] Comment on above: Result Comment: DUP Performed By: #### L 500.4050 ####[facility] [address] [place], [address] ALT Normal <=34 [facility] Comment on above: Result Comment: DUP Performed By: #### L 500.4050 ####[facility] [address] [place], [address] AST Normal <=31 [facility] Comment on above: Result Comment: DUP Performed By: #### L 500.4050 ####[facility] [address] [place], [address] BUN Normal 4-19 [facility] Comment on above: Result Comment: DUP Performed By: #### L 500.4050 ####[facility] [address] [place], [address] BUN/CRE Normal 10-20 [facility] Comment on above: Result Comment: DUP Performed By: #### L 500.4050 ####[facility] [address] [place], [address] Calcium Normal 7.6-11.0 [facility] Comment on above: Result Comment: DUP Performed By: #### L 500.4050 ####[facility] [address] [place], [address] CL Normal 98-108 [facility] Comment on above: Result Comment: DUP Performed By: #### L 500.4050 ####[facility] [address] [place], [address] CO2 Normal 21.0-32.0 [facility] Comment on above: Result Comment: DUP Performed By: #### L 500.4050 ####[facility] [address] [place], [address] CREAT,SERUM Normal 0.70-1.20 [facility] Comment on above: Result Comment: DUP Performed By: #### L 500.4050 ####[facility] [address] [place], [address] eGFR Normal >60 [facility] Comment on above: Result Comment: DUP Performed By: #### L 500.4050 ####[facility] [address] [place], [address] GAP Normal 5-15 [facility] Comment on above: Result Comment: DUP Performed By: #### L 500.4050 ####[facility] [address] [place], [address] GLU Normal 70-99 [facility] Comment on above: Result Comment: DUP Performed By: #### L 500.4050 ####[facility] [address] [place], [address] Potassium Normal 3.3-5.1 [facility] Comment on above: Result Comment: DUP Performed By: #### L 500.4050 ####[facility] [address] [place], [address] T BILI Normal 0.00-1.30 [facility] Comment on above: Result Comment: DUP Performed By: #### L 500.4050 ####[facility] [address] [place], [address] T PROT Normal 5.9-8.4 [facility] Comment on above: Result Comment: DUP Performed By: #### L 500.4050 ####[facility] [address] [place], [address] Comprehensive Metabolic Profil Normal 133-145 [facility] Comment on above: Result Comment: DUP Performed By: #### L 500.4050 ####[facility] [address] [place], [address] Eosinophil percentageOrdered By: Ysabel Ruffin on 12-29-2024 Eosinophils/100 WBC (Bld) 3.5 % 0-5 [facility] Erythrocyte distribution wid th ratioOrdered By: Ysabel Ruffin on 12-29-2024 Erythrocyte distribution width (RBC) [Ratio] 14.6 % 11.6-14.6 [facility] Erythrocyte distribution wid th standard deviationOrdered By: Ysabel Ruffin on 12-29-2024 Erythrocyte distribution width (RBC) [Ratio] 44.8 fl High 35.1-43.9 [facility] Glomerular filtration rate ( GFR) estimation/1.73 sq m using serum, plasma, or whole bOrdered By: Ysabel Ruffin on 12-29-2024 GFR/1.73 sq M.predicted among non-blacks MDRD (S/P/Bld) [Vol rate/Area] 82 mL/min/{1.73_m2} >60 [facility] Comment on above: mL/min/1.73m2 CKD-EP I Creatinine Equation (2020) Hematocrit Auto (Bld) [Volum e fraction]Ordered By: Ysabel Ruffin on 12-29-2024 Hematocrit (Bld) [Volume fraction] 28.4 % Low 37-47 [facility] Hemoglobin measurementOrdere d By: Ysabel Ruffin on 12-29-2024 Hemoglobin (Bld) [Mass/Vol] 8.2 g/dL Low 12.0-15.0 [facility] Immature granulocytes/100 WB C Auto (Bld)Ordered By: Ysabel Ruffin on 12-29-2024 Immature granulocytes/100 WBC (Bld) 0.300 % 0.0-0.9 [facility] Comment on above: IG% - Immature Granu locytes (promyelocytes, myelocytes and metamyelocytes) > 1% indicates that a LEFT SHIFT is Present. Ketones Test strip Ql (U)Ord ered By: Ysabel Ruffin on 12-29-2024 Ketones Ql (U) Negative Negative [facility] Laboratory - Chemistry and C hemistry - challengeOrdered By: Ysabel Ruffin on 12-29-2024 AST [Catalytic activity/Vol] 36 U/L High <32 [facility] LevetiracetamOrdered By: Luis F Castro on 12-29-2024 levETIRAcetam [Mass/Vol] 66.1 ug/mL High 10.0-40.0 [facility] Comment on above: Performed at: [address] [id number] Director: Azalia Rosen MD, Phone: [phone] MCV (mean corpuscular volume ) determinationOrdered By: Ysabel Ruffin on 12-29-2024 MCV (RBC) [Entitic vol] 83.8 fL 81-99 [facility] Mean corpuscular hemoglobin (MCH) determinationOrdered By: Ysabel Ruffin on 12-29-2024 MCH (RBC) [Entitic mass] 24.2 pg Low 27.0-32.0 [facility] Mean corpuscular hemoglobin concentration (MCHC) determinationOrdered By: Ysabel Ruffin on 12-29-2024 MCHC (RBC) [Mass/Vol] 28.9 g/dL Low 32-36 [facility] Mean platelet volume determi nationOrdered By: Ysabel Ruffin on 12-29-2024 Platelet mean volume (Bld) [Entitic vol] 11.1 fL 6.2-12.0 [facility] Microscopic analysis of urin e for red blood cells (RBC)Ordered By: Ysabel Ruffin on 12-29-2024 Microscopic analysis of urine for red blood cells (RBC) 0 SEEN /hpf 0-5 [facility] Monocyte percentageOrdered B y: Ysabel Ruffin on 12-29-2024 Monocytes/100 WBC (Bld) 7.4 % 0-10 [facility] Mucus LM Ql (Urine sed)Order ed By: Ysabel Ruffin on 12-29-2024 Mucus Ql (Urine sed) 0 SEEN /hpf [facility] Neutrophil percentageOrdered By: Ysabel Ruffin on 12-29-2024 Neutrophils/100 WBC (Bld) 57.9 % 47-70 [facility] Nitrite Test strip Ql (U)Ord ered By: Ysabel Ruffin on 12-29-2024 Nitrite Ql (U) Positive High Negative [facility] Nucleated red blood cell per centageOrdered By: Ysabel Ruffin on 12-29-2024 Nucleated RBC/100 WBC (Bld) [Ratio] 0 % 0-5 [facility] Platelet countOrdered By: Wilman Ruffin on 12-29-2024 Platelets (Bld) [#/Vol] 244 10*3/uL 150-450 [facility] Potassium measurement (mass/ volume)Ordered By: Ysabel Ruffin on 12-29-2024 Potassium (Unsp spec) [Mass/Vol] 4.4 mmol/L 3.3-5.1 [facility] Protein Test strip Ql (U)Ord ered By: Ysabel Ruffin on 12-29-2024 Protein Ql (U) 15 mg/dl High Negative [facility] RBC Auto (Bld) [#/Vol]Ordere d By: Ysabel Ruffin on 12-29-2024 RBC (Bld) [#/Vol] 3.39 10*6/uL Low 4.2-5.4 [facility] Serum creatinine measurement (mass/volume)Ordered By: Ysabel Ruffin on 12-29-2024 Creatinine [Mass/Vol] 0.83 mg/dL 0.70-1.20 [facility] Serum globulin measurementOr dered By: Ysabel Ruffin on 12-29-2024 Globulin (S) [Mass/Vol] 3.3 g/dL 2.2-4.2 [facility] Serum glucose measurement (m ass/volume)Ordered By: sYabel Ruffin on 12-29-2024 Glucose [Mass/Vol] 116 mg/dL High 70-99 [facility] Serum or plasma alanine moran otransferase (ALT) measurementOrdered By: Ysabel Ruffin on 12-29-2024 ALT [Catalytic activity/Vol] 9 U/L <35 [facility] Serum or plasma albumin paddy urement (mass/volume)Ordered By: Ysabel Ruffin on 12-29-2024 Albumin [Mass/Vol] 3.8 g/dL 3.5-5.0 [facility] Serum or plasma albumin/glob ulin mass ratioOrdered By: Ysabel Ruffin on 12-29-2024 Albumin/Globulin [Mass ratio] 1.2 {ratio} 0.9-2.4 [facility] Serum or plasma alkaline jeffery sphatase measurementOrdered By: Ysabel Ruffin on 12-29-2024 ALP [Catalytic activity/Vol] 106 U/L High 35-104 [facility] Serum or plasma calcium paddy urement (mass/volume)Ordered By: Ysabel Ruffin on 12-29-2024 Calcium [Mass/Vol] 9.2 mg/dL 7.6-11.0 [facility] Serum or plasma urea nitroge n measurement (mass/volume)Ordered By: Ysabel Ruffin on 12-29-2024 Urea nitrogen [Mass/Vol] 17 mg/dL 4-19 [facility] Sodium levelOrdered By: Whitley Ruffin on 12-29-2024 Sodium [Moles/Vol] 139 mmol/L 133-145 [facility] Squamous epithelial cells de tection in urine sediment by light microscopyOrdered By: Ysabel Ruffin on 12-29-2024 Epithelial cells.squamous LM Ql (Urine sed) 0-5 SEEN /hpf 5-10 [facility] TSH DL <= 0.005 mIU/L QnOrde red By: Ysabel Ruffin on 12-29-2024 TSH Qn 2.880 uIU/mL 0.300-4.20 0 [facility] Thyroid Stim Hormone (TSH)on 12-29-2024 TSH 2.880 uIU/mL Normal 0.300-4.20 0 [facility] Comment on above: Performed By: #### L 506.1001, L100.0100, L501.9520, L500.4050 ####[facility] [address] [place], [address] Total proteinOrdered By: Young Ruffin on 12-29-2024 Protein [Mass/Vol] 7.1 g/dL 5.9-8.4 [facility] Transitional cells detection in urine sediment by light microscopyOrdered By: Ysabel Ruffin on 12-29-2024 Transitional cells LM Ql (Urine sed) 0-5 SEEN /hpf 0-5 [facility] Urinalysis, Completeon 12-29 EPI,TRANSITION 0-5 SEEN Normal 0-5 [facility] Comment on above: Order Comment: LU CTOR TO SPECIFY Performed By: #### L 400.0001, ####[facility] [address] [place], [address] WBC 25-50 SEEN Normal 0-5 [facility] Comment on above: Order Comment: LU CTOR TO SPECIFY Performed By: #### L 400.0001, M1.0 ####[facility] [address] [place], [address] BACTERIA 3+ /hpf Normal None Seen [facility] Comment on above: Order Comment: LU CTOR TO SPECIFY Performed By: #### L 400.0001, M1.0 ####[facility] [address] [place], [address] EPI,SQUAMOUS 0-5 SEEN Normal 5-10 [facility] Comment on above: Order Comment: COLLE CTOR TO SPECIFY Performed By: #### L 400.0001, M100.2200 ####[facility] [address] [place], [address] BACTERIA Normal None Seen [facility] Comment on above: Order Comment: COLLE CTOR TO SPECIFY Result Comment: DUPL ICATE Performed By: #### L 400.0001 ####[facility] [address] [place], [address] BILIRUBIN URINE Normal Negative [facility] Comment on above: Order Comment: LU CTOR TO SPECIFY Result Comment: DUPL ICATE Performed By: #### L 400.0001 ####[facility] [address] [place], [address] Clarity (U) Normal Clear [facility] Comment on above: Order Comment: LU CTOR TO SPECIFY Result Comment: DUPL ICATE Performed By: #### L 400.0001 ####[facility] [address] [place], [address] Color (U) Normal Yellow [facility] Comment on above: Order Comment: LU CTOR TO SPECIFY Result Comment: DUPL ICATE Performed By: #### L 400.0001 ####[facility] [address] [place], [address] EPI,SQUAMOUS Normal 5-10 [facility] Comment on above: Order Comment: LU CTOR TO SPECIFY Result Comment: DUPL ICATE Performed By: #### L 400.0001 ####[facility] [address] [place], [address] GLUCOSE, UR Normal Normal [facility] Comment on above: Order Comment: COLLE CTOR TO SPECIFY Result Comment: DUPL ICATE Performed By: #### L 400.0001 ####[facility] [address] [place], [address] KETONE UR Normal Negative [facility] Comment on above: Order Comment: COLLE CTOR TO SPECIFY Result Comment: DUPL ICATE Performed By: #### L 400.0001 ####[facility] [address] [place], [address] LEUK ESTERASE Normal Negative [facility] Comment on above: Order Comment: COLLE CTOR TO SPECIFY Result Comment: DUPL ICATE Performed By: #### L 400.0001 ####[facility] [address] [place], [address] Mucus Ql (Urine sed) Normal [facility] Comment on above: Order Comment: COLLE CTOR TO SPECIFY Result Comment: DUPL ICATE Performed By: #### L 400.0001 ####[facility] [address] [place], [address] Mucus Ql (Urine sed) 0 SEEN Normal [facility] Comment on above: Order Comment: COLLE CTOR TO SPECIFY Performed By: #### L 400.0001, M100.2200 ####[facility] [address] [place], [address] Nitrite Ql (U) Normal Negative [facility] Comment on above: Order Comment: COLLE CTOR TO SPECIFY Result Comment: DUPL ICATE Performed By: #### L 400.0001 ####[facility] [address] [place], [address] OCCULT BLOOD-UR Normal Negative [facility] Comment on above: Order Comment: COLLE CTOR TO SPECIFY Result Comment: DUPL ICATE Performed By: #### L 400.0001 ####[facility] [address] [place], [address] pH UR Normal 5.0 - 8.0 [facility] Comment on above: Order Comment: COLLE CTOR TO SPECIFY Result Comment: DUPL ICATE Performed By: #### L 400.0001 ####[facility] [address] [place], [address] PROT DIPSTX Normal Negative [facility] Comment on above: Order Comment: COLLE CTOR TO SPECIFY Result Comment: DUPL ICATE Performed By: #### L 400.0001 ####[facility] [address] [place], [address] RBC Normal 0-5 [facility] Comment on above: Order Comment: COLLE CTOR TO SPECIFY Result Comment: DUPL ICATE Performed By: #### L 400.0001 ####[facility] [address] [place], [address] RBC 0 SEEN Normal 0-5 [facility] Comment on above: Order Comment: COLLE CTOR TO SPECIFY Performed By: #### L 400.0001, M100.2200 ####[facility] [address] [place], [address] SP.GR. DIPSTX Normal 1.002-1.03 0 [facility] Comment on above: Order Comment: COLLE CTOR TO SPECIFY Result Comment: DUPL ICATE Performed By: #### L 400.0001 ####[facility] [address] [place], [address] UR Preservative Normal [facility] Comment on above: Order Comment: COLLE CTOR TO SPECIFY Result Comment: DUPL ICATE Performed By: #### L 400.0001 ####[facility] [address] [place], [address] UROBILI Normal Normal [facility] Comment on above: Order Comment: COLLE CTOR TO SPECIFY Result Comment: DUPL ICATE Performed By: #### L 400.0001 ####[facility] [address] [place], [address] WBC Normal 0-5 [facility] Comment on above: Order Comment: COLLE CTOR TO SPECIFY Result Comment: DUPL ICATE Performed By: #### L 400.0001 ####[facility] [address] [place], [address] Urine clarityOrdered By: Young Ruffin on 12-29-2024 Clarity (U) Sl. Cloudy Clear [facility] Urine color determinationOrd ered By: Ysabel Ruffin on 12-29-2024 Color (U) Yellow Yellow [facility] Urine cultureOrdered By: Young Ruffin on 12-29-2024 Bacteria identified Cx Nom (U) Escherichia coli Abnormal [facility] Urine glucose detectionOrder ed By: Ysabel Ruffin on 12-29-2024 Glucose Ql (U) Normal mg/dl Normal [facility] Urine leukocyte esterase det ection by dipstickOrdered By: Ysabel Ruffin on 12-29-2024 Leukocyte esterase Test strip Ql (U) 500 /ul High Negative [facility] Urine pHOrdered By: Ysabel Mendoza indortiz on 12-29-2024 pH (U) 6.0 [pH] 5.0 - 8.0 [facility] Urine sediment bacteria coun t by microscopy (number/high power field)Ordered By: Ysabel Ruffin on 12-29-2024 Bacteria LM.HPF (Urine sed) [#/Area] 3 /[HPF] None Seen [facility] Urine specific gravity measu rementOrdered By: Ysabel Ruffin on 12-29-2024 Specific gravity (U) [Rel density] 1.010 1.002-1.03 0 [facility] Urine urobilinogen measureme ntOrdered By: Ysabel Ruffin on 12-29-2024 Urobilinogen Ql (U) Normal mg/dl Normal [facility] Venous blood ammonia measure mentOrdered By: Chapincito Castro on 12-29-2024 Ammonia (P) [Moles/Vol] 36.3 umol/L 11-51 [facility] Vitamin D,25 Hydroxyon 12-29 Vitamin D 25-OH 13.4 ng/mL Low 30-100 [facility] Comment on above: Result Comment: Ethel min D StatusDeficiency: <20 ng/mL (50nmol/L)Insufficiency: 20-30 ng/mL (50-75 nmol/L)Sufficiency: 30-100 ng/mL (75-250 nmol/L)Toxicity: >100 ng/mL (>250 nmol/L) Performed By: #### L 506.1001, L100.0100, L501.9520, L500.4050 ####[facility] [address] [place], [address] White blood cell (WBC) count Ordered By: Ysabel Ruffin on 12-29-2024 WBC (Bld) [#/Vol] 5.8 10*3/uL 4.4-11.0 [facility] White blood cell countOrdere d By: Ysabel Ruffin on 12-29-2024 White blood cell count 25-50 SEEN /hpf 0-5 [facility] Internal Medicine Office Vis iton 12-26-2024 Internal Medicine Office Visit Normal [facility] Emergency Department Summary on 11-20-2024 Emergency Department Summary Normal [facility] Hand Min 3 Viewson 5 Hand Min 3 Views Normal [facility] Wrist min 3 Viewson 11-21-19 25 Wrist min 3 Views Normal [facility] Absolute lymphocyte countOrd ered By: Oli Shearer on 11-14-2024 Lymphocytes Auto (Unsp spec) [#/Vol] 1.57 10*3/uL 0.83-4.51 [facility] Absolute neutrophil countOrd ered By: Oli Shearer on 11-14-2024 Neutrophils (Bld) [#/Vol] 4.5 10*3/uL 2.0-7.7 [facility] Automated lymphocyte count a s percentage of total leukocytesOrdered By: Oli Shearer on 11-14-2024 Lymphocytes/100 WBC Auto (Unsp spec) 23.3 % 19-41 [facility] Basophil percentageOrdered B y: Oli Shearer on 11-14-2024 Basophils/100 WBC (Bld) 0.4 % 0-1 [facility] Brain/Head W/WO Contraston 0 11-14-2024 Brain/Head W/WO Contrast Normal [facility] CBC W/Diff, Automatedon 04-2 Absolute Lymph 1.57 X10 3/uL Normal 0.83-4.51 [facility] Comment on above: Performed By: #### L 100.0100 ####[facility] [address] [place], [address] Absolute Neut 4.5 X10 3/uL Normal 2.0-7.7 [facility] Comment on above: Performed By: #### L 100.0100 ####[facility] [address] [place], [address] Basophils/100 WBC (Bld) 0.4 % Normal 0-1 [facility] Comment on above: Performed By: #### L 100.0100 ####[facility] [address] [place], [address] Eosinophils/100 WBC (Bld) 1.9 % Normal 0-5 [facility] Comment on above: Performed By: #### L 100.0100 ####[facility] [address] [place], [address] Erythrocyte distribution width (RBC) [Ratio] 14.6 % Normal 11.6-14.6 [facility] Comment on above: Performed By: #### L 100.0100 ####[facility] [address] [place], [address] Hematocrit (Bld) [Volume fraction] 28.7 % Low 37-47 [facility] Comment on above: Performed By: #### L 100.0100 ####[facility] [address] [place], [address] Hemoglobin (Bld) [Mass/Vol] 8.4 g/dL Low 12.0-15.0 [facility] Comment on above: Performed By: #### L 100.0100 ####[facility] [address] [place], [address] IG% 0.300 Normal 0.0-0.9 [facility] Comment on above: Result Comment: IG% - Immature Granulocytes (promyelocytes, myelocytes andmetamyelocytes) > 1% indicates that a LEFT SHIFT is Present. Performed By: #### L 100.0100 ####[facility] [address] [place], [address] Lymphocytes/100 WBC (Bld) 23.3 % Normal 19-41 [facility] Comment on above: Performed By: #### L 100.0100 ####[facility] [address] [place], [address] MCH (RBC) [Entitic mass] 24.9 pg Low 27.0-32.0 [facility] Comment on above: Performed By: #### L 100.0100 ####[facility] [address] [place], [address] MCHC (RBC) [Mass/Vol] 29.3 g/dL Low 32-36 [facility] Comment on above: Performed By: #### L 100.0100 ####[facility] [address] [place], [address] MCV (RBC) [Entitic vol] 85.2 fL Normal 81-99 [facility] Comment on above: Performed By: #### L 100.0100 ####[facility] [address] [place], [address] Monocytes/100 WBC (Bld) 7.1 % Normal 0-10 [facility] Comment on above: Performed By: #### L 100.0100 ####[facility] [address] [place], [address] Neutrophils/100 WBC (Bld) 67.0 % Normal 47-70 [facility] Comment on above: Performed By: #### L 100.0100 ####[facility] [address] [place], [address] Nucleated RBC (Bld) [#/Vol] 0 10*3/uL Normal 0-5 [facility] Comment on above: Performed By: #### L 100.0100 ####[facility] [address] [place], [address] Platelet mean volume (Bld) [Entitic vol] 9.9 fL Normal 6.2-12.0 [facility] Comment on above: Performed By: #### L 100.0100 ####[facility] [address] [place], [address] Platelets (Bld) [#/Vol] 195 10*3/uL Normal 150-450 [facility] Comment on above: Performed By: #### L 100.0100 ####[facility] [address] [place], [address] RBC (Bld) [#/Vol] 3.37 10*6/uL Low 4.2-5.4 [facility] Comment on above: Performed By: #### L 100.0100 ####[facility] [address] [place], [address] RDW SD 45.1 fl High 35.1-43.9 [facility] Comment on above: Performed By: #### L 100.0100 ####[facility] [address] [place], [address] WBC (Bld) [#/Vol] 6.7 10*3/uL Normal 4.4-11.0 [facility] Comment on above: Performed By: #### L 100.0100 ####[facility] [address] [place], [address] Eosinophil percentageOrdered By: Oli Shearer on 11-14-2024 Eosinophils/100 WBC (Bld) 1.9 % 0-5 [facility] Erythrocyte distribution wid th ratioOrdered By: Oli Shearer on 11-14-2024 Erythrocyte distribution width (RBC) [Ratio] 14.6 % 11.6-14.6 [facility] Erythrocyte distribution wid th standard deviationOrdered By: Oli Shearer on 11-14-2024 Erythrocyte distribution width (RBC) [Ratio] 45.1 fl High 35.1-43.9 [facility] Hematocrit Auto (Bld) [Volum e fraction]Ordered By: Oli Shearer on 11-14-2024 Hematocrit (Bld) [Volume fraction] 28.7 % Low 37-47 [facility] Hemoglobin measurementOrdere d By: Oli Shearer on 11-14-2024 Hemoglobin (Bld) [Mass/Vol] 8.4 g/dL Low 12.0-15.0 [facility] Immature granulocytes/100 WB C Auto (Bld)Ordered By: Oli Shearer on 11-14-2024 Immature granulocytes/100 WBC (Bld) 0.300 % 0.0-0.9 [facility] Comment on above: IG% - Immature Granu locytes (promyelocytes, myelocytes and metamyelocytes) > 1% indicates that a LEFT SHIFT is Present. MCV (mean corpuscular volume ) determinationOrdered By: Oli Shearer on 11-14-2024 MCV (RBC) [Entitic vol] 85.2 fL 81-99 [facility] Mean corpuscular hemoglobin (MCH) determinationOrdered By: Oli Shearer on 11-14-2024 MCH (RBC) [Entitic mass] 24.9 pg Low 27.0-32.0 [facility] Mean corpuscular hemoglobin concentration (MCHC) determinationOrdered By: Oli Shearer on 11-14-2024 MCHC (RBC) [Mass/Vol] 29.3 g/dL Low 32-36 [facility] Mean platelet volume determi nationOrdered By: Oli Shearer on 11-14-2024 Platelet mean volume (Bld) [Entitic vol] 9.9 fL 6.2-12.0 [facility] Monocyte percentageOrdered B y: Oil Shearer on 11-14-2024 Monocytes/100 WBC (Bld) 7.1 % 0-10 [facility] Neutrophil percentageOrdered By: Oli Shearer on 11-14-2024 Neutrophils/100 WBC (Bld) 67.0 % 47-70 [facility] Nucleated red blood cell per centageOrdered By: Oli Shearer on 11-14-2024 Nucleated RBC/100 WBC (Bld) [Ratio] 0 % 0-5 [facility] Platelet countOrdered By: Michael castillo Manfred on 11-14-2024 Platelets (Bld) [#/Vol] 195 10*3/uL 150-450 [facility] RBC Auto (Bld) [#/Vol]Ordere d By: Oli Shearer on 11-14-2024 RBC (Bld) [#/Vol] 3.37 10*6/uL Low 4.2-5.4 [facility] White blood cell (WBC) count Ordered By: Oli Shearer on 11-14-2024 WBC (Bld) [#/Vol] 6.7 10*3/uL 4.4-11.0 [facility] Internal Medicine Office Vis iton 11-12-2024 Internal Medicine Office Visit Normal [facility] Urine Cultureon 09-03-2024 URC Normal [facility] Comment on above: Performed By: #### L 400.0001, M100.2200 ####[facility] [address] [place], [address] Bilirubin Test strip Ql (U)O rdered By: Luke Tirado on 09-01-2024 Bilirubin Ql (U) Negative Negative [facility] Ketones Test strip Ql (U)Ord ered By: Luke Tirado on 09-01-2024 Ketones Ql (U) 5 mg/dl High Negative [facility] Microscopic analysis of urin e for red blood cells (RBC)Ordered By: Luke Tirado on 09-01-2024 Microscopic analysis of urine for red blood cells (RBC) 0-5 SEEN /hpf 0-5 [facility] Mucus LM Ql (Urine sed)Order ed By: Luke Tirado on 09-01-2024 Mucus Ql (Urine sed) 0 SEEN /hpf [facility] Nitrite Test strip Ql (U)Ord ered By: Luke Tirado on 09-01-2024 Nitrite Ql (U) Positive High Negative [facility] Protein Test strip Ql (U)Ord ered By: Luke Tirado on 09-01-2024 Protein Ql (U) 30 mg/dl High Negative [facility] Squamous epithelial cells de tection in urine sediment by light microscopyOrdered By: Luke Tirado on 09-01-2024 Epithelial cells.squamous LM Ql (Urine sed) 0-5 SEEN /hpf 5-10 [facility] Urinalysis, Completeon 09-01 BACTERIA 1+ /hpf Normal None Seen [facility] Comment on above: Order Comment: Micro scopic field is filled. Other elements may beobscured.CLEAN CATCH Performed By: #### L 400.0001, M100.2200 ####[facility] [address] [place], [address] EPI,SQUAMOUS 0-5 SEEN Normal 5-10 [facility] Comment on above: Order Comment: Micro scopic field is filled. Other elements may beobscured.CLEAN CATCH Performed By: #### L 400.0001, M1.0 ####[facility] [address] [place], [address] RBC 0-5 SEEN Normal 0-5 [facility] Comment on above: Order Comment: Micro scopic field is filled. Other elements may beobscured.CLEAN CATCH Performed By: #### L 400.0001, M1.0 ####[facility] [address] [place], [address] WBC >100 SEEN Normal 0-5 [facility] Comment on above: Order Comment: Micro scopic field is filled. Other elements may beobscured.CLEAN CATCH Performed By: #### L 400.0001, M100.2200 ####[facility] [address] [place], [address] Mucus Ql (Urine sed) 0 SEEN Normal [facility] Comment on above: Order Comment: Micro scopic field is filled. Other elements may beobscured.CLEAN CATCH Performed By: #### L 400.0001, M100.2200 ####[facility] [address] [place], [address] Urine clarityOrdered By: Juan Diego Tirado on 09-01-2024 Clarity (U) Cloudy Clear [facility] Urine color determinationOrd ered By: Luke Tirado on 09-01-2024 Color (U) Yellow Yellow [facility] Urine cultureOrdered By: Juan Diego Tirado on 09-01-2024 Bacteria identified Cx Nom (U) Staphylococcus lugdunensis Abnormal [facility] Urine glucose detectionOrder ed By: Luke Tirado on 09-01-2024 Glucose Ql (U) Normal mg/dl Normal [facility] Urine leukocyte esterase det ection by dipstickOrdered By: Luke Tirado on 09-01-2024 Leukocyte esterase Test strip Ql (U) 500 /ul High Negative [facility] Urine pHOrdered By: Nusrat Tirado on 09-01-2024 pH (U) 6.0 [pH] 5.0 - 8.0 [facility] Urine sediment bacteria coun t by microscopy (number/high power field)Ordered By: Luke Tirado on 09-01-2024 Bacteria LM.HPF (Urine sed) [#/Area] 1 /[HPF] None Seen [facility] Urine specific gravity measu rementOrdered By: Luke Tirado on 09-01-2024 Specific gravity (U) [Rel density] 1.015 1.002-1.03 0 [facility] Urine urobilinogen measureme ntOrdered By: Luke Tirado on 09-01-2024 Urobilinogen Ql (U) Normal mg/dl Normal [facility] White blood cell countOrdere d By: Luke Tirado on 09-01-2024 White blood cell count >100 SEEN /hpf 0-5 [facility] Internal Medicine Office Vis iton 08-28-2024 Internal Medicine Office Visit Normal [facility] Basic Metabolic Profile (BMP )on 08-17-2024 BUN Normal 7-18 [facility] Comment on above: Result Comment: Canc elled via OM: Order cancelled - Patient discharged Performed By: #### L 500.2500, L100.0100 ####[facility] [address] [place], [address] BUN/CRE Normal 10-20 [facility] Comment on above: Result Comment: Canc elled via OM: Order cancelled - Patient discharged Performed By: #### L 500.2500, L100.0100 ####[facility] [address] [place], [address] CA,Total Normal 8.5-10.1 [facility] Comment on above: Result Comment: Canc elled via OM: Order cancelled - Patient discharged Performed By: #### L 500.2500, L100.0100 ####[facility] [address] [place], [address] CL Normal 98-107 [facility] Comment on above: Result Comment: Canc elled via OM: Order cancelled - Patient discharged Performed By: #### L 500.2500, L100.0100 ####[facility] [address] [place], [address] CO2 Normal 21.0-32.0 [facility] Comment on above: Result Comment: Canc elled via OM: Order cancelled - Patient discharged Performed By: #### L 500.2500, L100.0100 ####[facility] [address] [place], [address] CREAT,SERUM Normal 0.55-1.02 [facility] Comment on above: Result Comment: Canc elled via OM: Order cancelled - Patient discharged Performed By: #### L 500.2500, L100.0100 ####[facility] [address] [place], [address] EST GFR Normal >60 [facility] Comment on above: Result Comment: Canc elled via OM: Order cancelled - Patient discharged Performed By: #### L 500.2500, L100.0100 ####[facility] [address] [place], [address] EST GFR - AA Normal >60 [facility] Comment on above: Result Comment: Canc elled via OM: Order cancelled - Patient discharged Performed By: #### L 500.2500, L100.0100 ####[facility] [address] [place], [address] GAP Normal 5-15 [facility] Comment on above: Result Comment: Canc elled via OM: Order cancelled - Patient discharged Performed By: #### L 500.2500, L100.0100 ####[facility] [address] [place], [address] GLU Normal 74-106 [facility] Comment on above: Result Comment: Canc elled via OM: Order cancelled - Patient discharged Performed By: #### L 500.2500, L100.0100 ####[facility] [address] [place], [address] Potassium Normal 3.5-5.1 [facility] Comment on above: Result Comment: Canc elled via OM: Order cancelled - Patient discharged Performed By: #### L 500.2500, L100.0100 ####[facility] [address] [place], [address] Basic Metabolic Profile (BMP) Normal 136-145 [facility] Comment on above: Result Comment: Canc elled via OM: Order cancelled - Patient discharged Performed By: #### L 500.2500, L100.0100 ####[facility] [address] [place], [address] CBC W/Diff, Automatedon 07-24 Absolute Neut Normal 2.0-7.7 [facility] Comment on above: Result Comment: Canc elled via OM: Order cancelled - Patient discharged Performed By: #### L 500.2500, L100.0100 ####[facility] [address] [place], [address] HCT Normal 37-47 [facility] Comment on above: Result Comment: Canc elled via OM: Order cancelled - Patient discharged Performed By: #### L 500.2500, L100.0100 ####[facility] [address] [place], [address] HGB Normal 12.0-15.0 [facility] Comment on above: Result Comment: Canc elled via OM: Order cancelled - Patient discharged Performed By: #### L 500.2500, L100.0100 ####[facility] [address] [place], [address] MCH Normal 27.0-32.0 [facility] Comment on above: Result Comment: Canc elled via OM: Order cancelled - Patient discharged Performed By: #### L 500.2500, L100.0100 ####[facility] [address] [place], [address] MCHC Normal 32-36 [facility] Comment on above: Result Comment: Canc elled via OM: Order cancelled - Patient discharged Performed By: #### L 500.2500, L100.0100 ####[facility] [address] [place], [address] MCV Normal 81-99 [facility] Comment on above: Result Comment: Canc elled via OM: Order cancelled - Patient discharged Performed By: #### L 500.2500, L100.0100 ####[facility] [address] [place], [address] NEUT% Normal 47-70 [facility] Comment on above: Result Comment: Canc elled via OM: Order cancelled - Patient discharged Performed By: #### L 500.2500, L100.0100 ####[facility] [address] [place], [address] PLT Normal 150-450 [facility] Comment on above: Result Comment: Canc elled via OM: Order cancelled - Patient discharged Performed By: #### L 500.2500, L100.0100 ####[facility] [address] [place], [address] RBC Normal 4.2-5.4 [facility] Comment on above: Result Comment: Canc elled via OM: Order cancelled - Patient discharged Performed By: #### L 500.2500, L100.0100 ####[facility] [address] [place], [address] RDW CV Normal 11.6-14.6 [facility] Comment on above: Result Comment: Canc elled via OM: Order cancelled - Patient discharged Performed By: #### L 500.2500, L100.0100 ####[facility] [address] [place], [address] RDW SD Normal 35.1-43.9 [facility] Comment on above: Result Comment: Canc elled via OM: Order cancelled - Patient discharged Performed By: #### L 500.2500, L100.0100 ####[facility] [address] [place], [address] WBC Normal 4.4-11.0 [facility] Comment on above: Result Comment: Canc elled via OM: Order cancelled - Patient discharged Performed By: #### L 500.2500, L100.0100 ####[facility] [address] [place], [address] Basic Metabolic Profile (BMP )on 08-16-2024 BUN Normal 7-18 [facility] Comment on above: Result Comment: Canc elled via OM: Order cancelled - Patient discharged Performed By: #### L 100.0100, L500.2500 ####[facility] [address] [place], [address] BUN/CRE Normal 10-20 [facility] Comment on above: Result Comment: Canc elled via OM: Order cancelled - Patient discharged Performed By: #### L 100.0100, L500.2500 ####[facility] [address] [place], [address] CA,Total Normal 8.5-10.1 [facility] Comment on above: Result Comment: Canc elled via OM: Order cancelled - Patient discharged Performed By: #### L 100.0100, L500.2500 ####[facility] [address] [place], [address] CL Normal 98-107 [facility] Comment on above: Result Comment: Canc elled via OM: Order cancelled - Patient discharged Performed By: #### L 100.0100, L500.2500 ####[facility] [address] [place], [address] CO2 Normal 21.0-32.0 [facility] Comment on above: Result Comment: Canc elled via OM: Order cancelled - Patient discharged Performed By: #### L 100.0100, L500.2500 ####[facility] [address] [place], [address] CREAT,SERUM Normal 0.55-1.02 [facility] Comment on above: Result Comment: Canc elled via OM: Order cancelled - Patient discharged Performed By: #### L 100.0100, L500.2500 ####[facility] [address] [place], [address] EST GFR Normal >60 [facility] Comment on above: Result Comment: Canc elled via OM: Order cancelled - Patient discharged Performed By: #### L 100.0100, L500.2500 ####[facility] [address] [place], [address] EST GFR - AA Normal >60 [facility] Comment on above: Result Comment: Canc elled via OM: Order cancelled - Patient discharged Performed By: #### L 100.0100, L500.2500 ####[facility] [address] [place], [address] GAP Normal 5-15 [facility] Comment on above: Result Comment: Canc elled via OM: Order cancelled - Patient discharged Performed By: #### L 100.0100, L500.2500 ####[facility] [address] [place], [address] GLU Normal 74-106 [facility] Comment on above: Result Comment: Canc elled via OM: Order cancelled - Patient discharged Performed By: #### L 100.0100, L500.2500 ####[facility] [address] [place], [address] Potassium Normal 3.5-5.1 [facility] Comment on above: Result Comment: Canc elled via OM: Order cancelled - Patient discharged Performed By: #### L 100.0100, L500.2500 ####[facility] [address] [place], [address] Basic Metabolic Profile (BMP) Normal 136-145 [facility] Comment on above: Result Comment: Canc elled via OM: Order cancelled - Patient discharged Performed By: #### L 100.0100, L500.2500 ####[facility] [address] [place], [address] CBC W/Diff, Automatedon 01-2 Absolute Neut Normal 2.0-7.7 [facility] Comment on above: Result Comment: Canc elled via OM: Order cancelled - Patient discharged Performed By: #### L 100.0100, L500.2500 ####[facility] [address] [place], [address] HCT Normal 37-47 [facility] Comment on above: Result Comment: Canc elled via OM: Order cancelled - Patient discharged Performed By: #### L 100.0100, L500.2500 ####[facility] [address] [place], [address] HGB Normal 12.0-15.0 [facility] Comment on above: Result Comment: Canc elled via OM: Order cancelled - Patient discharged Performed By: #### L 100.0100, L500.2500 ####[facility] [address] [place], [address] MCH Normal 27.0-32.0 [facility] Comment on above: Result Comment: Canc elled via OM: Order cancelled - Patient discharged Performed By: #### L 100.0100, L500.2500 ####[facility] [address] [place], [address] MCHC Normal 32-36 [facility] Comment on above: Result Comment: Canc elled via OM: Order cancelled - Patient discharged Performed By: #### L 100.0100, L500.2500 ####[facility] [address] [place], [address] MCV Normal 81-99 [facility] Comment on above: Result Comment: Canc elled via OM: Order cancelled - Patient discharged Performed By: #### L 100.0100, L500.2500 ####[facility] [address] [place], [address] NEUT% Normal 47-70 [facility] Comment on above: Result Comment: Canc elled via OM: Order cancelled - Patient discharged Performed By: #### L 100.0100, L500.2500 ####[facility] [address] [place], [address] PLT Normal 150-450 [facility] Comment on above: Result Comment: Canc elled via OM: Order cancelled - Patient discharged Performed By: #### L 100.0100, L500.2500 ####[facility] [address] [place], [address] RBC Normal 4.2-5.4 [facility] Comment on above: Result Comment: Canc elled via OM: Order cancelled - Patient discharged Performed By: #### L 100.0100, L500.2500 ####[facility] [address] [place], [address] RDW CV Normal 11.6-14.6 [facility] Comment on above: Result Comment: Canc elled via OM: Order cancelled - Patient discharged Performed By: #### L 100.0100, L500.2500 ####[facility] [address] [place], [address] RDW SD Normal 35.1-43.9 [facility] Comment on above: Result Comment: Canc elled via OM: Order cancelled - Patient discharged Performed By: #### L 100.0100, L500.2500 ####[facility] [address] [place], [address] WBC Normal 4.4-11.0 [facility] Comment on above: Result Comment: Canc elled via OM: Order cancelled - Patient discharged Performed By: #### L 100.0100, L500.2500 ####[facility] [address] [place], [address] Absolute lymphocyte countOrd ered By: Nick Romano on 08-15-2024 Lymphocytes Auto (Unsp spec) [#/Vol] 2.39 10*3/uL 0.83-4.51 [facility] Automated lymphocyte count a s percentage of total leukocytesOrdered By: Nick Romano on 08-15-2024 Lymphocytes/100 WBC Auto (Unsp spec) 35.0 % 19-41 [facility] BRCon 08-15-2024 RC Normal [facility] Comment on above: Result Comment: [id number] OP RC TRANSFUSED 08/15/24 1153 Performed By: #### B , [facility] ####[facility] [address] [place], [address] Basic Metabolic Profile (BMP )on 08-15-2024 BUN/CRE 15.2 RATIO Normal 10-20 [facility] Comment on above: Performed By: #### L 501.5200, L100.0100, L500.2500 ####[facility] [address] [place], [address] CA,Total 8.7 mg/dL Normal 8.5-10.1 [facility] Comment on above: Performed By: #### L 501.5200, L100.0100, L500.2500 ####[facility] [address] [place], [address] Chloride [Moles/Vol] 103 mmol/L Normal 98-107 [facility] Comment on above: Performed By: #### L 501.5200, L100.0100, L500.2500 ####[facility] [address] [place], [address] CO2 [Moles/Vol] 30.0 mmol/L Normal 21.0-32.0 [facility] Comment on above: Performed By: #### L 501.5200, L100.0100, L500.2500 ####[facility] [address] [place], [address] Creatinine [Mass/Vol] 0.86 mg/dL Normal 0.55-1.02 [facility] Comment on above: Result Comment: The validity of the calculated GFR GFRAA in patients over70 years has not been determined. Clinical correlation isessential. Performed By: #### L 501.5200, L100.0100, L500.2500 ####[facility] [address] [place], [address] ECRCL 99.03 ml/min Normal [facility] Comment on above: Performed By: #### L 501.5200, L100.0100, L500.2500 ####[facility] [address] [place], [address] EST GFR - AA 88 mL/min Normal >60 [facility] Comment on above: Result Comment: Afri can Nigerian GFR Calc Performed By: #### L 501.5200, L100.0100, L500.2500 ####[facility] [address] [place], [address] GAP 4 Low 5-15 [facility] Comment on above: Performed By: #### L 501.5200, L100.0100, L500.2500 ####[facility] [address] [place], [address] GFR/1.73 sq M.predicted among non-blacks MDRD (S/P/Bld) [Vol rate/Area] 72 mL/min/{1.73_m2} Normal >60 [facility] Comment on above: Result Comment: Non- GFR Calc Performed By: #### L 501.5200, L100.0100, L500.2500 ####[facility] [address] [place], [address] Glucose [Mass/Vol] 95 mg/dL Normal 74-106 [facility] Comment on above: Performed By: #### L 501.5200, L100.0100, L500.2500 ####[facility] [address] [place], [address] Potassium [Moles/Vol] 4.4 mmol/L Normal 3.5-5.1 [facility] Comment on above: Performed By: #### L 501.5200, L100.0100, L500.2500 ####[facility] [address] [place], [address] Sodium [Moles/Vol] 137 mmol/L Normal 136-145 [facility] Comment on above: Performed By: #### L 501.5200, L100.0100, L500.2500 ####[facility] [address] [place], [address] Urea nitrogen [Mass/Vol] 13 mg/dL Normal 7-18 [facility] Comment on above: Performed By: #### L 501.5200, L100.0100, L500.2500 ####[facility] [address] [place], [address] Basophil percentageOrdered B y: Nicksven Romano on 08-15-2024 Basophils/100 WBC (Bld) 0.4 % 0-1 [facility] CBC W/Diff, Automatedon 07-24 Absolute Lymph 2.39 X10 3/uL Normal 0.83-4.51 [facility] Comment on above: Performed By: #### L 501.5200, L100.0100, L500.2500 ####[facility] [address] [place], [address] Absolute Neut 3.7 X10 3/uL Normal 2.0-7.7 [facility] Comment on above: Performed By: #### L 501.5200, L100.0100, L500.2500 ####[facility] [address] [place], [address] Basophils/100 WBC (Bld) 0.4 % Normal 0-1 [facility] Comment on above: Performed By: #### L 501.5200, L100.0100, L500.2500 ####[facility] [address] [place], [address] Eosinophils/100 WBC (Bld) 3.7 % Normal 0-5 [facility] Comment on above: Performed By: #### L 501.5200, L100.0100, L500.2500 ####[facility] [address] [place], [address] Erythrocyte distribution width (RBC) [Ratio] 17.7 % High 11.6-14.6 [facility] Comment on above: Performed By: #### L 501.5200, L100.0100, L500.2500 ####[facility] [address] [place], [address] Hematocrit (Bld) [Volume fraction] 25.1 % Low 37-47 [facility] Comment on above: Performed By: #### L 501.5200, L100.0100, L500.2500 ####[facility] [address] [place], [address] Hemoglobin (Bld) [Mass/Vol] 7.0 g/dL Low 12.0-15.0 [facility] Comment on above: Performed By: #### L 501.5200, L100.0100, L500.2500 ####[facility] [address] [place], [address] IG% 0.100 Normal 0.0-0.9 [facility] Comment on above: Result Comment: IG% - Immature Granulocytes (promyelocytes, myelocytes andmetamyelocytes) > 1% indicates that a LEFT SHIFT is Present. Performed By: #### L 501.5200, L100.0100, L500.2500 ####[facility] [address] [place], [address] Lymphocytes/100 WBC (Bld) 35.0 % Normal 19-41 [facility] Comment on above: Performed By: #### L 501.5200, L100.0100, L500.2500 ####[facility] [address] [place], [address] MCH (RBC) [Entitic mass] 22.5 pg Low 27.0-32.0 [facility] Comment on above: Performed By: #### L 501.5200, L100.0100, L500.2500 ####[facility] [address] [place], [address] MCHC (RBC) [Mass/Vol] 27.9 g/dL Low 32-36 [facility] Comment on above: Performed By: #### L 501.5200, L100.0100, L500.2500 ####[facility] [address] [place], [address] MCV (RBC) [Entitic vol] 80.7 fL Low 81-99 [facility] Comment on above: Performed By: #### L 501.5200, L100.0100, L500.2500 ####[facility] [address] [place], [address] Monocytes/100 WBC (Bld) 7.3 % Normal 0-10 [facility] Comment on above: Performed By: #### L 501.5200, L100.0100, L500.2500 ####[facility] [address] [place], [address] Neutrophils/100 WBC (Bld) 53.5 % Normal 47-70 [facility] Comment on above: Performed By: #### L 501.5200, L100.0100, L500.2500 ####[facility] [address] [place], [address] Nucleated RBC (Bld) [#/Vol] 0 10*3/uL Normal 0-5 [facility] Comment on above: Performed By: #### L 501.5200, L100.0100, L500.2500 ####[facility] [address] [place], [address] Platelet mean volume (Bld) [Entitic vol] 10.4 fL Normal 6.2-12.0 [facility] Comment on above: Performed By: #### L 501.5200, L100.0100, L500.2500 ####[facility] [address] [place], [address] Platelets (Bld) [#/Vol] 226 10*3/uL Normal 150-450 [facility] Comment on above: Performed By: #### L 501.5200, L100.0100, L500.2500 ####[facility] [address] [place], [address] RBC (Bld) [#/Vol] 3.11 10*6/uL Low 4.2-5.4 [facility] Comment on above: Performed By: #### L 501.5200, L100.0100, L500.2500 ####[facility] [address] [place], [address] RDW SD 52.0 fl High 35.1-43.9 [facility] Comment on above: Performed By: #### L 501.5200, L100.0100, L500.2500 ####[facility] [address] [place], [address] WBC (Bld) [#/Vol] 6.8 10*3/uL Normal 4.4-11.0 [facility] Comment on above: Performed By: #### L 501.5200, L100.0100, L500.2500 ####[facility] [address] [place], [address] Carbon dioxide measurementOr dered By: Nick Romano on 08-15-2024 CO2 [Moles/Vol] 30.0 mmol/L 21.0-32.0 [facility] Chloride measurementOrdered By: Nick Romano on 08-15-2024 Chloride [Moles/Vol] 103 mmol/L 98-107 [facility] Eosinophil percentageOrdered By: Nick Romano on 08-15-2024 Eosinophils/100 WBC (Bld) 3.7 % 0-5 [facility] Erythrocyte distribution wid th ratioOrdered By: Nick Romano on 08-15-2024 Erythrocyte distribution width (RBC) [Ratio] 17.7 % High 11.6-14.6 [facility] Erythrocyte distribution wid th standard deviationOrdered By: Nick Romano on 08-15-2024 Erythrocyte distribution width (RBC) [Ratio] 52.0 fl High 35.1-43.9 [facility] Glomerular filtration rate ( GFR) estimationOrdered By: Nick Romano on 08-15-2024 GFR/1.73 sq M.predicted among non-blacks MDRD (S/P/Bld) [Vol rate/Area] 72 mL/min/{1.73_m2} >60 [facility] Glucose measurementOrdered B y: Nick Romano on 08-15-2024 Glucose [Mass/Vol] 95 mg/dL 74-106 [facility] Hematocrit Auto (Bld) [Volum e fraction]Ordered By: Nick Romano on 08-15-2024 Hematocrit (Bld) [Volume fraction] 25.1 % Low 37-47 [facility] Hemoglobin measurementOrdere d By: Nick Romano on 08-15-2024 Hemoglobin (Bld) [Mass/Vol] 7.0 g/dL Low 12.0-15.0 [facility] Immature granulocytes/100 WB C Auto (Bld)Ordered By: Nick Romnao on 08-15-2024 Immature granulocytes/100 WBC (Bld) 0.100 % 0.0-0.9 [facility] MCV (mean corpuscular volume ) determinationOrdered By: Nick Romano on 08-15-2024 MCV (RBC) [Entitic vol] 80.7 fL Low 81-99 [facility] Magnesiumon 08-15-2024 Magnesium [Mass/Vol] 2.2 mg/dL Normal 1.6-2.6 [facility] Comment on above: Performed By: #### L 501.5200, L100.0100, L500.2500 ####[facility] [address] [place], [place], [id number] Magnesium measurementOrdered By: Alexander Ye on 08-15-2024 Magnesium [Mass/Vol] 2.2 mg/dL 1.6-2.6 [facility] Mean corpuscular hemoglobin (MCH) determinationOrdered By: Nick Romano on 08-15-2024 MCH (RBC) [Entitic mass] 22.5 pg Low 27.0-32.0 [facility] Monocyte percentageOrdered B y: Nick Romano on 08-15-2024 Monocytes/100 WBC (Bld) 7.3 % 0-10 [facility] Neutrophil percentageOrdered By: Nick Romano on 08-15-2024 Neutrophils/100 WBC (Bld) 53.5 % 47-70 [facility] Phosphoruson 08-15-2024 Phosphate [Mass/Vol] 4.1 mg/dL Normal 2.5-4.9 [facility] Comment on above: Performed By: #### L 501.1130 ####[facility] [address] [place], [address] Platelet countOrdered By: Marjorie Romano on 08-15-2024 Platelets (Bld) [#/Vol] 226 10*3/uL 150-450 [facility] Potassium measurementOrdered By: Nick Romano on 08-15-2024 Potassium [Moles/Vol] 4.4 mmol/L 3.5-5.1 [facility] RBC Auto (Bld) [#/Vol]Ordere d By: Nick Romano on 08-15-2024 RBC (Bld) [#/Vol] 3.11 10*6/uL Low 4.2-5.4 [facility] Serum or plasma calcium paddy urement (mass/volume)Ordered By: Nick Romano on 08-15-2024 Calcium [Mass/Vol] 8.7 mg/dL 8.5-10.1 [facility] Serum or plasma creatinine m easurement (mass/volume)Ordered By: Nick Romano on 08-15-2024 Creatinine [Mass/Vol] 0.86 mg/dL 0.55-1.02 [facility] Serum or plasma urea nitroge n measurement (mass/volume)Ordered By: Nick Romano on 08-15-2024 Urea nitrogen [Mass/Vol] 13 mg/dL 7-18 [facility] Sodium levelOrdered By: Nixon Romano on 08-15-2024 Sodium [Moles/Vol] 137 mmol/L 136-145 [facility] Type AND Screenon 08-15-2024 ABO and Rh group Nom (Bld) Blood group A Rh(D) positive Normal [facility] Comment on above: Order Comment: CMV N EG? NNumber of units to transfuse: 1Is pt's Hgb is = to 7.0 mg/dl or Hct </= 21%? YReason for Ordering Blood: ChronicAre the blood/blood products to be transfused? YIs the patient having/had surgery? Vanesa Oakes Performed By: #### B TS, BRC ####[facility] [address] [place], [address] White blood cell (WBC) count Ordered By: Nick Romano on 08-15-2024 WBC (Bld) [#/Vol] 6.8 10*3/uL 4.4-11.0 [facility] Basic Metabolic Profile (BMP )on 08-14-2024 BUN/CRE 17.0 RATIO Normal 10-20 [facility] Comment on above: Performed By: #### L 100.0100, L500.2500 ####[facility] [address] [place], [address] CA,Total 9.1 mg/dL Normal 8.5-10.1 [facility] Comment on above: Performed By: #### L 100.0100, L500.2500 ####[facility] [address] [place], [address] Chloride [Moles/Vol] 102 mmol/L Normal 98-107 [facility] Comment on above: Performed By: #### L 100.0100, L500.2500 ####[facility] [address] [place], [address] CO2 [Moles/Vol] 29.0 mmol/L Normal 21.0-32.0 [facility] Comment on above: Performed By: #### L 100.0100, L500.2500 ####[facility] [address] [place], [address] Creatinine [Mass/Vol] 0.82 mg/dL Normal 0.55-1.02 [facility] Comment on above: Result Comment: The validity of the calculated GFR GFRAA in patients over70 years has not been determined. Clinical correlation isessential. Performed By: #### L 100.0100, L500.2500 ####[facility] [address] [place], [address] ECRCL 103.91 ml/min Normal [facility] Comment on above: Performed By: #### L 100.0100, L500.2500 ####[facility] [address] [place], [address] EST GFR - AA 91 mL/min Normal >60 [facility] Comment on above: Result Comment: Afri can Nigerian GFR Calc Performed By: #### L 100.0100, L500.2500 ####[facility] [address] [place], [address] GAP 5 Normal 5-15 [facility] Comment on above: Performed By: #### L 100.0100, L500.2500 ####[facility] [address] [place], [address] GFR/1.73 sq M.predicted among non-blacks MDRD (S/P/Bld) [Vol rate/Area] 75 mL/min/{1.73_m2} Normal >60 [facility] Comment on above: Result Comment: Non- GFR Calc Performed By: #### L 100.0100, L500.2500 ####[facility] [address] [place], [address] Glucose [Mass/Vol] 85 mg/dL Normal 74-106 [facility] Comment on above: Performed By: #### L 100.0100, L500.2500 ####[facility] [address] [place], [address] Potassium [Moles/Vol] 4.2 mmol/L Normal 3.5-5.1 [facility] Comment on above: Performed By: #### L 100.0100, L500.2500 ####[facility] [address] [place], [address] Sodium [Moles/Vol] 136 mmol/L Normal 136-145 [facility] Comment on above: Performed By: #### L 100.0100, L500.2500 ####[facility] [address] [place], [address] Urea nitrogen [Mass/Vol] 14 mg/dL Normal 7-18 [facility] Comment on above: Performed By: #### L 100.0100, L500.2500 ####[facility] [address] [place], [address] CBC W/Diff, Automatedon 07-24-2024 Absolute Lymph 2.64 X10 3/uL Normal 0.83-4.51 [facility] Comment on above: Performed By: #### L 100.0100, L500.2500 ####[facility] [address] [place], [address] Absolute Neut 4.8 X10 3/uL Normal 2.0-7.7 [facility] Comment on above: Performed By: #### L 100.0100, L500.2500 ####[facility] [address] [place], [address] Basophils/100 WBC (Bld) 0.6 % Normal 0-1 [facility] Comment on above: Performed By: #### L 100.0100, L500.2500 ####[facility] [address] [place], [address] Eosinophils/100 WBC (Bld) 3.7 % Normal 0-5 [facility] Comment on above: Performed By: #### L 100.0100, L500.2500 ####[facility] [address] [place], [address] Erythrocyte distribution width (RBC) [Ratio] 17.7 % High 11.6-14.6 [facility] Comment on above: Performed By: #### L 100.0100, L500.2500 ####[facility] [address] [place], [address] Hematocrit (Bld) [Volume fraction] 28.1 % Low 37-47 [facility] Comment on above: Performed By: #### L 100.0100, L500.2500 ####[facility] [address] [place], [address] Hemoglobin (Bld) [Mass/Vol] 7.9 g/dL Low 12.0-15.0 [facility] Comment on above: Performed By: #### L 100.0100, L500.2500 ####[facility] [address] [place], [address] IG% 0.100 Normal 0.0-0.9 [facility] Comment on above: Result Comment: IG% - Immature Granulocytes (promyelocytes, myelocytes andmetamyelocytes) > 1% indicates that a LEFT SHIFT is Present. Performed By: #### L 100.0100, L500.2500 ####[facility] [address] [place], [address] Lymphocytes/100 WBC (Bld) 31.5 % Normal 19-41 [facility] Comment on above: Performed By: #### L 100.0100, L500.2500 ####[facility] [address] [place], [address] MCH (RBC) [Entitic mass] 22.9 pg Low 27.0-32.0 [facility] Comment on above: Performed By: #### L 100.0100, L500.2500 ####[facility] [address] [place], [address] MCHC (RBC) [Mass/Vol] 28.1 g/dL Low 32-36 [facility] Comment on above: Performed By: #### L 100.0100, L500.2500 ####[facility] [address] [place], [address] MCV (RBC) [Entitic vol] 81.4 fL Normal 81-99 [facility] Comment on above: Performed By: #### L 100.0100, L500.2500 ####[facility] [address] [place], [address] Monocytes/100 WBC (Bld) 6.7 % Normal 0-10 [facility] Comment on above: Performed By: #### L 100.0100, L500.2500 ####[facility] [address] [place], [address] Neutrophils/100 WBC (Bld) 57.4 % Normal 47-70 [facility] Comment on above: Performed By: #### L 100.0100, L500.2500 ####[facility] [address] [place], [address] Nucleated RBC (Bld) [#/Vol] 0 10*3/uL Normal 0-5 [facility] Comment on above: Performed By: #### L 100.0100, L500.2500 ####[facility] [address] [place], [address] Platelet mean volume (Bld) [Entitic vol] 10.3 fL Normal 6.2-12.0 [facility] Comment on above: Performed By: #### L 100.0100, L500.2500 ####[facility] [address] [place], [address] Platelets (Bld) [#/Vol] 242 10*3/uL Normal 150-450 [facility] Comment on above: Performed By: #### L 100.0100, L500.2500 ####[facility] [address] [place], [address] RBC (Bld) [#/Vol] 3.45 10*6/uL Low 4.2-5.4 [facility] Comment on above: Performed By: #### L 100.0100, L500.2500 ####[facility] [address] [place], [address] RDW SD 52.4 fl High 35.1-43.9 [facility] Comment on above: Performed By: #### L 100.0100, L500.2500 ####[facility] [address] [place], [address] WBC (Bld) [#/Vol] 8.4 10*3/uL Normal 4.4-11.0 [facility] Comment on above: Performed By: #### L 100.0100, L500.2500 ####[facility] [address] [place], [address] Bilirubin, totalOrdered By: Aleksandra Hurley on 08-13-2024 Bilirubin [Mass/Vol] 0.20 mg/dL Normal 0.20-1.00 [facility] Comment on above: Result Comment: For patients on eltrombopag therapy, use of Dimension Temple TBIL is not recommended. Performed By: #### L 501.9985, L500.4050, L100.0100 ####[facility] [address] [place], [address] CBC W/Diff, Automatedon 07-24 Absolute Lymph 2.74 X10 3/uL Normal 0.83-4.51 [facility] Comment on above: Performed By: #### L 501.9985, L500.4050, L100.0100 ####[facility] [address] [place], [address] Absolute Neut 5.2 X10 3/uL Normal 2.0-7.7 [facility] Comment on above: Performed By: #### L 501.9985, L500.4050, L100.0100 ####[facility] [address] [place], [address] Basophils/100 WBC (Bld) 0.5 % Normal 0-1 [facility] Comment on above: Performed By: #### L 501.9985, L500.4050, L100.0100 ####[facility] [address] [place], [address] Eosinophils/100 WBC (Bld) 2.4 % Normal 0-5 [facility] Comment on above: Performed By: #### L 501.9985, L500.4050, L100.0100 ####[facility] [address] [place], [address] Erythrocyte distribution width (RBC) [Ratio] 17.6 % High 11.6-14.6 [facility] Comment on above: Performed By: #### L 501.9985, L500.4050, L100.0100 ####[facility] [address] [place], [address] Hematocrit (Bld) [Volume fraction] 25.1 % Low 37-47 [facility] Comment on above: Performed By: #### L 501.9985, L500.4050, L100.0100 ####[facility] [address] [place], [address] Hemoglobin (Bld) [Mass/Vol] 7.3 g/dL Low 12.0-15.0 [facility] Comment on above: Performed By: #### L 501.9985, L500.4050, L100.0100 ####[facility] [address] [place], [address] IG% 0.200 Normal 0.0-0.9 [facility] Comment on above: Result Comment: IG% - Immature Granulocytes (promyelocytes, myelocytes andmetamyelocytes) > 1% indicates that a LEFT SHIFT is Present. Performed By: #### L 501.9985, L500.4050, L100.0100 ####[facility] [address] [place], [address] Lymphocytes/100 WBC (Bld) 31.3 % Normal 19-41 [facility] Comment on above: Performed By: #### L 501.9985, L500.4050, L100.0100 ####[facility] [address] [place], [address] MCH (RBC) [Entitic mass] 23.1 pg Low 27.0-32.0 [facility] Comment on above: Performed By: #### L 501.9985, L500.4050, L100.0100 ####[facility] [address] [place], [address] MCHC (RBC) [Mass/Vol] 29.1 g/dL Low 32-36 [facility] Comment on above: Performed By: #### L 501.9985, L500.4050, L100.0100 ####[facility] [address] [place], [address] MCV (RBC) [Entitic vol] 79.4 fL Low 81-99 [facility] Comment on above: Performed By: #### L 501.9985, L500.4050, L100.0100 ####[facility] [address] [place], [address] Monocytes/100 WBC (Bld) 6.1 % Normal 0-10 [facility] Comment on above: Performed By: #### L 501.9985, L500.4050, L100.0100 ####[facility] [address] [place], [address] Neutrophils/100 WBC (Bld) 59.5 % Normal 47-70 [facility] Comment on above: Performed By: #### L 501.9985, L500.4050, L100.0100 ####[facility] [address] [place], [address] Nucleated RBC (Bld) [#/Vol] 0 10*3/uL Normal 0-5 [facility] Comment on above: Performed By: #### L 501.9985, L500.4050, L100.0100 ####[facility] [address] [place], [address] Platelet mean volume (Bld) [Entitic vol] 10.3 fL Normal 6.2-12.0 [facility] Comment on above: Performed By: #### L 501.9985, L500.4050, L100.0100 ####[facility] [address] [place], [address] Platelets (Bld) [#/Vol] 251 10*3/uL Normal 150-450 [facility] Comment on above: Performed By: #### L 501.9985, L500.4050, L100.0100 ####[facility] [address] [place], [address] RBC (Bld) [#/Vol] 3.16 10*6/uL Low 4.2-5.4 [facility] Comment on above: Performed By: #### L 501.9985, L500.4050, L100.0100 ####[facility] [address] [place], [address] RDW SD 51.4 fl High 35.1-43.9 [facility] Comment on above: Performed By: #### L 501.9985, L500.4050, L100.0100 ####[facility] [address] [place], [address] WBC (Bld) [#/Vol] 8.8 10*3/uL Normal 4.4-11.0 [facility] Comment on above: Performed By: #### L 501.9985, L500.4050, L100.0100 ####[facility] [address] [place], [address] Comprehensive Metabolic Prof ilon 08-13-2024 Albumin/Globulin [Mass ratio] 0.7 {ratio} Low 0.9-2.4 [facility] Comment on above: Performed By: #### L 501.9985, L500.4050, L100.0100 ####[facility] [address] [place], [address] ALK P 102 U/L Normal 45-117 [facility] Comment on above: Performed By: #### L 501.9985, L500.4050, L100.0100 ####[facility] [address] [place], [address] AST [Catalytic activity/Vol] 23 U/L Normal 15-37 [facility] Comment on above: Performed By: #### L 501.9985, L500.4050, L100.0100 ####[facility] [address] [place], [address] BUN/CRE 20.6 RATIO High 10-20 [facility] Comment on above: Performed By: #### L 501.9985, L500.4050, L100.0100 ####[facility] [address] [place], [address] CA,Total 8.4 mg/dL Low 8.5-10.1 [facility] Comment on above: Performed By: #### L 501.9985, L500.4050, L100.0100 ####[facility] [address] [place], [address] Chloride [Moles/Vol] 104 mmol/L Normal 98-107 [facility] Comment on above: Performed By: #### L 501.9985, L500.4050, L100.0100 ####[facility] [address] [place], [address] CO2 [Moles/Vol] 28.0 mmol/L Normal 21.0-32.0 [facility] Comment on above: Performed By: #### L 501.9985, L500.4050, L100.0100 ####[facility] [address] [place], [address] Creatinine [Mass/Vol] 0.87 mg/dL Normal 0.55-1.02 [facility] Comment on above: Result Comment: The validity of the calculated GFR GFRAA in patients over70 years has not been determined. Clinical correlation isessential. Performed By: #### L 501.9985, L500.4050, L100.0100 ####[facility] [address] [place], [address] ECRCL 98.03 ml/min Normal [facility] Comment on above: Performed By: #### L 501.9985, L500.4050, L100.0100 ####[facility] [address] [place], [address] EST GFR - AA 85 mL/min Normal >60 [facility] Comment on above: Result Comment: Afri can Nigerian GFR Calc Performed By: #### L 501.9985, L500.4050, L100.0100 ####[facility] [address] [place], [address] GAP 4 Low 5-15 [facility] Comment on above: Performed By: #### L 501.9985, L500.4050, L100.0100 ####[facility] [address] [place], [address] GFR/1.73 sq M.predicted among non-blacks MDRD (S/P/Bld) [Vol rate/Area] 71 mL/min/{1.73_m2} Normal >60 [facility] Comment on above: Result Comment: Non- GFR Calc Performed By: #### L 501.9985, L500.4050, L100.0100 ####[facility] [address] [place], [address] Glucose [Mass/Vol] 99 mg/dL Normal 74-106 [facility] Comment on above: Performed By: #### L 501.9985, L500.4050, L100.0100 ####[facility] [address] [place], [address] Potassium [Moles/Vol] 4.1 mmol/L Normal 3.5-5.1 [facility] Comment on above: Performed By: #### L 501.9985, L500.4050, L100.0100 ####[facility] [address] [place], [address] Sodium [Moles/Vol] 136 mmol/L Normal 136-145 [facility] Comment on above: Performed By: #### L 501.9985, L500.4050, L100.0100 ####[facility] [address] [place], [address] T PROT 6.9 g/dL Normal 6.4-8.2 [facility] Comment on above: Performed By: #### L 501.9985, L500.4050, L100.0100 ####[facility] [address] [place] [place], [address] Urea nitrogen [Mass/Vol] 18 mg/dL Normal 7-18 [facility] Comment on above: Performed By: #### L 501.9985, L500.4050, L100.0100 ####[facility] [address] [place], [address] HH, Hemoglobin AND Hematocri ton 08-13-2024 Hematocrit (Bld) [Volume fraction] 26.6 % Low 37-47 [facility] Comment on above: Performed By: #### L 100.0600 ####[facility] [address] [place], [address] Hemoglobin (Bld) [Mass/Vol] 7.8 g/dL Low 12.0-15.0 [facility] Comment on above: Performed By: #### L 100.0600 ####[facility] [address] [place], [address] Hemoglobin A1con 08-13-2024 HbA1c (Bld) [Mass fraction] 5.6 % Normal 3.8-5.6 [facility] Comment on above: Result Comment: Norm al < 5.7 % Prediabetic 5.7 - 6.4 % Diabetic >or= 6.5 % Please note range changes. Performed By: #### L 501.9985, L500.4050, L100.0100 ####[facility] [address] [place], [address] Hemoglobin A1c percentageOrd ered By: Aleksandra Hurley on 08-13-2024 HbA1c (Bld) [Mass fraction] 5.6 % 3.8-5.6 [facility] Influenza virus A and B and SARS-CoV-2 (COVID-19) and Respiratory syncytial virus RNAOrdered By: Nick Romano on 08-13-2024 SARS-CoV-2 (COVID-19) RNA GIL+probe Ql (Unsp spec) [facility] L501.4020on 08-13-2024 TROPONIN-I HS 6 pg/mL Normal 3.0-54.0 [facility] Comment on above: Order Comment: NEEDE D TO REORDER TROP #3 BECAUSE #2 AND #3 TROP DRAWN ATSAME TIME, BOTH SPECIMENS TESTING COMPLETE, COULD NOTUNRECEIVE #33 Result Comment: Plea se Note: New Test Units and Gender Specific Reference Ranges. For more information see Policy Stat Procedure [facility] High Sensitivity Troponin (TNIH) and attachments. Performed By: #### L 501.4020 ####[facility] [address] [place], [address] TROPONIN-I HS 5 pg/mL Normal 3.0-54.0 [facility] Comment on above: Order Comment: Comme nts: SPECIMEN #2'TROP' Serial specimen #1, #2 or #3: 2 Result Comment: Plea se Note: New Test Units and Gender Specific Reference Ranges. For more information see Policy Stat Procedure [facility] High Sensitivity Troponin (TNIH) and attachments. Performed By: #### L 501.4020 ####[facility] [address] [place], [address] TROPONIN-I HS 6 pg/mL Normal 3.0-54.0 [facility] Comment on above: Order Comment: DUPLI DON [...] For more information see Policy Stat Procedure [facility] High Sensitivity Troponin (TNIH) and attachments. Performed By: #### L 501.4020 ####[facility] [address] [place], [address] TROPONIN-I HS 4 pg/mL Normal 3.0-54.0 [facility] Comment on above: Order Comment: 'TROP ' Serial specimen #1, #2 or #3: 1Comments: may add to ED labs Result Comment: Plea se Note: New Test Units and Gender Specific Reference Ranges. For more information see Policy Stat Procedure [facility] High Sensitivity Troponin (TNIH) and attachments. Performed By: #### L 501.4020, L501.5200 ####[facility] [address] [facility] [address] M100.678on 08-13-2024 M100.678 Pending SARS-CoV-2 (COVID 19) Negative INFLUENZA A Negative INFLUENZA B Negative RSV PCR Negative Normal [facility] Comment on above: Performed By: #### M 100.678 ####[facility] [address] [place] [id number] Magnesiumon 08-13-2024 Magnesium [Mass/Vol] 2.2 mg/dL Normal 1.6-2.6 [facility] Comment on above: Order Comment: 'TROP ' Serial specimen #1, #2 or #3: 1Comments: may add to ED labs Performed By: #### L 501.4020, L501.5200 ####[facility] [address] [place], [address] No Panel InformationOrdered By: [facility] Xavi on 08-13-2024 23 U/L 15-37 [facility] Serum globulin measurementOr dered By: Aleksandra Xavi on 08-13-2024 Globulin (S) [Mass/Vol] 4.0 g/dL Normal 2.2-4.2 [facility] Comment on above: Performed By: #### L 501.9985, L500.4050, L100.0100 ####[facility] [address] [place], [address] Serum or plasma alanine moran otransferase (ALT) measurementOrdered By: Aleksandra Hurley on 08-13-2024 ALT [Catalytic activity/Vol] 13 U/L Normal 13-56 [facility] Comment on above: Performed By: #### L 501.9985, L500.4050, L100.0100 ####[facility] [address] [place], [address] Serum or plasma albumin paddy urement (mass/volume)Ordered By: Aleksandra Hurley on 08-13-2024 Albumin [Mass/Vol] 2.9 g/dL Low 3.2-5.0 [facility] Comment on above: Performed By: #### L 501.9985, L500.4050, L100.0100 ####[facility] [address] [place], [address] Serum or plasma alkaline jeffery sphatase measurementOrdered By: Aleksandra Hurley on 08-13-2024 ALP [Catalytic activity/Vol] 102 U/L 45-117 [facility] Total proteinOrdered By: Natalio Hurley on 08-13-2024 Protein [Mass/Vol] 6.9 g/dL 6.4-8.2 [facility] Troponin IOrdered By: Aleksandra Xavi on 08-13-2024 Troponin I 6 pg/mL 3.0-54.0 [facility] 12 Lead EKGon 08-12-2024 12 Lead EKG Normal [facility] Activated partial thrombopla stin time (aPTT) in platelet poor plasma by coagulation aOrdered By: Chad Pederson on 08-12-2024 aPTT Coag (PPP) [Time] 28.9 s 24.1-36.2 [facility] Basic Metabolic Profile (BMP )on 08-12-2024 BUN/CRE 19.8 RATIO Normal 10-20 [facility] Comment on above: Performed By: #### L 500.2500, L500.3400, L300.4310, L100.0100, L300.3900 ####[facility] [address] [place], [address] CA,Total 9.0 mg/dL Normal 8.5-10.1 [facility] Comment on above: Performed By: #### L 500.2500, L500.3400, L300.4310, L100.0100, L300.3900 ####[facility] [address] [place], [address] Chloride [Moles/Vol] 101 mmol/L Normal 98-107 [facility] Comment on above: Performed By: #### L 500.2500, L500.3400, L300.4310, L100.0100, L300.3900 ####[facility] [address] [place], [address] CO2 [Moles/Vol] 29.0 mmol/L Normal 21.0-32.0 [facility] Comment on above: Performed By: #### L 500.2500, L500.3400, L300.4310, L100.0100, L300.3900 ####[facility] [address] [place], [address] Creatinine [Mass/Vol] 1.11 mg/dL High 0.55-1.02 [facility] Comment on above: Result Comment: The validity of the calculated GFR GFRAA in patients over70 years has not been determined. Clinical correlation isessential. Performed By: #### L 500.2500, L500.3400, L300.4310, L100.0100, L300.3900 ####[facility] [address] [place], [address] ECRCL 78.51 ml/min Normal [facility] Comment on above: Performed By: #### L 500.2500, L500.3400, L300.4310, L100.0100, L300.3900 ####[facility] [address] [place], [address] EST GFR - AA 65 mL/min Normal >60 [facility] Comment on above: Result Comment: Afri can Nigerian GFR Calc Performed By: #### L 500.2500, L500.3400, L300.4310, L100.0100, L300.3900 ####[facility] [address] [place], [address] GAP 7 Normal 5-15 [facility] Comment on above: Performed By: #### L 500.2500, L500.3400, L300.4310, L100.0100, L300.3900 ####[facility] [address] [place], [address] GFR/1.73 sq M.predicted among non-blacks MDRD (S/P/Bld) [Vol rate/Area] 54 mL/min/{1.73_m2} Low >60 [facility] Comment on above: Result Comment: Non- GFR Calc Performed By: #### L 500.2500, L500.3400, L300.4310, L100.0100, L300.3900 ####[facility] [address] [place], [address] Glucose [Mass/Vol] 151 mg/dL High 74-106 [facility] Comment on above: Result Comment: Fast ing Glucose result greater than or equal to 126 mg/dLsuggests DIABETES MELLITUS per A.D.A. criteria. Performed By: #### L 500.2500, L500.3400, L300.4310, L100.0100, L300.3900 ####[facility] [address] [place], [address] Potassium [Moles/Vol] 4.0 mmol/L Normal 3.5-5.1 [facility] Comment on above: Performed By: #### L 500.2500, L500.3400, L300.4310, L100.0100, L300.3900 ####[facility] [address] [place], [address] Sodium [Moles/Vol] 137 mmol/L Normal 136-145 [facility] Comment on above: Performed By: #### L 500.2500, L500.3400, L300.4310, L100.0100, L300.3900 ####[facility] [address] [place], [address] Urea nitrogen [Mass/Vol] 22 mg/dL High 7-18 [facility] Comment on above: Performed By: #### L 500.2500, L500.3400, L300.4310, L100.0100, L300.3900 ####[facility] [address] [place], [address] Bilirubin Test strip Ql (U)O rdered By: Chad Pederson on 08-12-2024 Bilirubin Ql (U) Negative Negative [facility] Bilirubin directOrdered By: Chad Pederson on 08-12-2024 Bilirubin.direct [Mass/Vol] 0.08 mg/dL 0.00-0.30 [facility] Brain/Head without Contrasto n 08-12-2024 Brain/Head without Contrast Normal [facility] CBC W/Diff, Automatedon - Absolute Lymph 2.30 X10 3/uL Normal 0.83-4.51 [facility] Comment on above: Performed By: #### L 500.2500, L500.3400, L300.4310, L100.0100, L300.3900 ####[facility] [address] [place], [address] Absolute Neut 5.6 X10 3/uL Normal 2.0-7.7 [facility] Comment on above: Performed By: #### L 500.2500, L500.3400, L300.4310, L100.0100, L300.3900 ####[facility] [address] [place], [address] Basophils/100 WBC (Bld) 0.5 % Normal 0-1 [facility] Comment on above: Performed By: #### L 500.2500, L500.3400, L300.4310, L100.0100, L300.3900 ####[facility] [address] [place], [address] Eosinophils/100 WBC (Bld) 2.9 % Normal 0-5 [facility] Comment on above: Performed By: #### L 500.2500, L500.3400, L300.4310, L100.0100, L300.3900 ####[facility] [address] [place], [address] Erythrocyte distribution width (RBC) [Ratio] 17.3 % High 11.6-14.6 [facility] Comment on above: Performed By: #### L 500.2500, L500.3400, L300.4310, L100.0100, L300.3900 ####[facility] [address] [place], [address] Hematocrit (Bld) [Volume fraction] 27.1 % Low 37-47 [facility] Comment on above: Performed By: #### L 500.2500, L500.3400, L300.4310, L100.0100, L300.3900 ####[facility] [address] [place], [address] Hemoglobin (Bld) [Mass/Vol] 8.0 g/dL Low 12.0-15.0 [facility] Comment on above: Performed By: #### L 500.2500, L500.3400, L300.4310, L100.0100, L300.3900 ####[facility] [address] [place], [address] IG% 0.300 Normal 0.0-0.9 [facility] Comment on above: Result Comment: IG% - Immature Granulocytes (promyelocytes, myelocytes andmetamyelocytes) > 1% indicates that a LEFT SHIFT is Present. Performed By: #### L 500.2500, L500.3400, L300.4310, L100.0100, L300.3900 ####[facility] [address] [place], [address] Lymphocytes/100 WBC (Bld) 26.4 % Normal 19-41 [facility] Comment on above: Performed By: #### L 500.2500, L500.3400, L300.4310, L100.0100, L300.3900 ####[facility] [address] [place], [address] MCH (RBC) [Entitic mass] 23.2 pg Low 27.0-32.0 [facility] Comment on above: Performed By: #### L 500.2500, L500.3400, L300.4310, L100.0100, L300.3900 ####[facility] [address] [place], [address] MCHC (RBC) [Mass/Vol] 29.5 g/dL Low 32-36 [facility] Comment on above: Performed By: #### L 500.2500, L500.3400, L300.4310, L100.0100, L300.3900 ####[facility] [address] [place], [address] MCV (RBC) [Entitic vol] 78.6 fL Low 81-99 [facility] Comment on above: Performed By: #### L 500.2500, L500.3400, L300.4310, L100.0100, L300.3900 ####[facility] [address] [place], [address] Monocytes/100 WBC (Bld) 5.5 % Normal 0-10 [facility] Comment on above: Performed By: #### L 500.2500, L500.3400, L300.4310, L100.0100, L300.3900 ####[facility] [address] [place], [address] Neutrophils/100 WBC (Bld) 64.4 % Normal 47-70 [facility] Comment on above: Performed By: #### L 500.2500, L500.3400, L300.4310, L100.0100, L300.3900 ####[facility] [address] [place], [address] Nucleated RBC (Bld) [#/Vol] 0 10*3/uL Normal 0-5 [facility] Comment on above: Performed By: #### L 500.2500, L500.3400, L300.4310, L100.0100, L300.3900 ####[facility] [address] [place], [address] Platelet mean volume (Bld) [Entitic vol] 10.5 fL Normal 6.2-12.0 [facility] Comment on above: Performed By: #### L 500.2500, L500.3400, L300.4310, L100.0100, L300.3900 ####[facility] [address] [place], [address] Platelets (Bld) [#/Vol] 258 10*3/uL Normal 150-450 [facility] Comment on above: Performed By: #### L 500.2500, L500.3400, L300.4310, L100.0100, L300.3900 ####[facility] [address] [place], [address] RBC (Bld) [#/Vol] 3.45 10*6/uL Low 4.2-5.4 [facility] Comment on above: Performed By: #### L 500.2500, L500.3400, L300.4310, L100.0100, L300.3900 ####[facility] [address] [place], [address] RDW SD 49.1 fl High 35.1-43.9 [facility] Comment on above: Performed By: #### L 500.2500, L500.3400, L300.4310, L100.0100, L300.3900 ####[facility] [address] [place], [address] WBC (Bld) [#/Vol] 8.7 10*3/uL Normal 4.4-11.0 [facility] Comment on above: Performed By: #### L 500.2500, L500.3400, L300.4310, L100.0100, L300.3900 ####[facility] [address] [place], [address] CT Chest, Abd, Pel w/Contras ton 08-12-2024 CT Chest, Abd, Pel w/Contrast Normal [facility] Emergency Department Summary on 08-12-2024 Emergency Department Summary Normal [facility] H AND P Exam - Hospitaliston 08-12-2024 H&P Exam - Hospitalist Normal [facility] Hand Min 3 Viewson 5 Hand Min 3 Views Normal [facility] Ketones Test strip Ql (U)Ord ered By: Chad Pederson on 08-12-2024 Ketones Ql (U) 5 mg/dl High Negative [facility] Liver Profileon 08-12-2024 Albumin [Mass/Vol] 3.2 g/dL Normal 3.2-5.0 [facility] Comment on above: Performed By: #### L 500.2500, L500.3400, L300.4310, L100.0100, L300.3900 ####[facility] [address] [place], [address] ALK P 121 U/L High 45-117 [facility] Comment on above: Performed By: #### L 500.2500, L500.3400, L300.4310, L100.0100, L300.3900 ####[facility] [address] [place], [address] ALT [Catalytic activity/Vol] 10 U/L Low 13-56 [facility] Comment on above: Performed By: #### L 500.2500, L500.3400, L300.4310, L100.0100, L300.3900 ####[facility] [address] [place], [address] AST [Catalytic activity/Vol] 27 U/L Normal 15-37 [facility] Comment on above: Performed By: #### L 500.2500, L500.3400, L300.4310, L100.0100, L300.3900 ####[facility] [address] [place], [address] Bilirubin [Mass/Vol] 0.20 mg/dL Normal 0.20-1.00 [facility] Comment on above: Result Comment: For patients on eltrombopag therapy, use of Dimension Temple TBIL is not recommended. Performed By: #### L 500.2500, L500.3400, L300.4310, L100.0100, L300.3900 ####[facility] [address] [place], [place], [address] Bilirubin.direct [Mass/Vol] 0.08 mg/dL Normal 0.00-0.30 [facility] Comment on above: Performed By: #### L 500.2500, L500.3400, L300.4310, L100.0100, L300.3900 ####[facility] [address] [place], [address] Globulin (S) [Mass/Vol] 4.6 g/dL High 2.2-4.2 [facility] Comment on above: Performed By: #### L 500.2500, L500.3400, L300.4310, L100.0100, L300.3900 ####[facility] [address] [place], [address] T PROT 7.8 g/dL Normal 6.4-8.2 [facility] Comment on above: Performed By: #### L 500.2500, L500.3400, L300.4310, L100.0100, L300.3900 ####[facility] [address] [place], [address] Mucus LM Ql (Urine sed)Order ed By: Chad Pederson on 08-12-2024 Mucus Ql (Urine sed) 0 SEEN /hpf [facility] Nitrite Test strip Ql (U)Ord ered By: Chad Pederson on 08-12-2024 Nitrite Ql (U) Negative Negative [facility] Partial Thromboplast Timeon 08-12-2024 aPTT Coag (Bld) [Time] 28.9 s Normal 24.1-36.2 [facility] Comment on above: Performed By: #### L 500.2500, L500.3400, L300.4310, L100.0100, L300.3900 ####[facility] [address] [place], [address] Protein Test strip Ql (U)Ord ered By: Chad Pederson on 08-12-2024 Protein Ql (U) 15 mg/dl High Negative [facility] Prothrombin Time w/INRon INR Coag (PPP) [Relative time] 1.1 {INR} Normal [facility] Comment on above: Performed By: #### L 500.2500, L500.3400, L300.4310, L100.0100, L300.3900 ####[facility] [address] [place], [address] PT Coag (PPP) [Time] 14.7 s Normal 11.7-14.9 [facility] Comment on above: Performed By: #### L 500.2500, L500.3400, L300.4310, L100.0100, L300.3900 ####[facility] [address] [place], [address] Prothrombin timeOrdered By: Chad Pederson on 08-12-2024 PT Coag (PPP) [Time] 14.7 s 11.7-14.9 [facility] Spine Cervical without Contr ason 08-12-2024 Spine Cervical without Contras Normal [facility] Squamous epithelial cells de tection in urine sediment by light microscopyOrdered By: Chad Pederson on 08-12-2024 Epithelial cells.squamous LM Ql (Urine sed) 5-10 SEEN /hpf 5-10 [facility] Urinalysis, Completeon 08-12 EPI,SQUAMOUS 5-10 SEEN Normal 5-10 [facility] Comment on above: Order Comment: COLLE CTOR TO SPECIFY Performed By: #### L 400.0001 ####[facility] [address] [place], [address] RBC 0-5 SEEN Normal 0-5 [facility] Comment on above: Order Comment: LU CTOR TO SPECIFY Performed By: #### L 400.0001 ####[facility] [address] [place], [address] BILIRUBIN URINE Negative Normal Negative [facility] Comment on above: Order Comment: LU CTOR TO SPECIFY Performed By: #### L [id number] ####[facility] [id number] [place], [address] Clarity (U) Clear Normal Clear [facility] Comment on above: Order Comment: LU CTOR TO SPECIFY Performed By: #### L [id number] ####[facility] [id number] [place], [address] Color (U) Yellow Normal Yellow [facility] Comment on above: Order Comment: LU CTOR TO SPECIFY Performed By: #### L [id number] ####[facility] [id number] [place], [address] GLUCOSE, UR Normal Normal Normal [facility] Center Comment on above: Order Comment: LU CTOR TO SPECIFY Performed By: #### L 400.0001 ####[facility] [address] [place], [address] KETONE UR 5 mg/dl Abnormal Negative [facility] Comment on above: Order Comment: LU CTOR TO SPECIFY Performed By: #### L 400.0001 ####[facility] [address] [place], [address] LEUK ESTERASE Negative Normal Negative [facility] Comment on above: Order Comment: LU CTOR TO SPECIFY Performed By: #### L 400.0001 ####[facility] [address] [place], [address] Nitrite Ql (U) Negative Normal Negative [facility] Comment on above: Order Comment: LU CTOR TO SPECIFY Performed By: #### L 400.0001 ####[facility] [address] [place], [address] OCCULT BLOOD-UR 10 /ul Abnormal Negative [facility] Comment on above: Order Comment: LU CTOR TO SPECIFY Performed By: #### L 400.0001 ####[facility] [address] [place], [address] pH UR 6.5 Normal 5.0 - 8.0 [facility] Comment on above: Order Comment: LU CTOR TO SPECIFY Performed By: #### L 400.0001 ####[facility] [address] [place], [address] PROT DIPSTX 15 mg/dl Abnormal Negative [facility] Comment on above: Order Comment: LU CTOR TO SPECIFY Performed By: #### L 400.0001 ####[facility] [address] [place], [address] SP.GR. DIPSTX 1.010 Normal 1.002-1.03 0 [facility] Comment on above: Order Comment: LU CTOR TO SPECIFY Performed By: #### L 400.0001 ####[facility] [address] [place], [address] UROBILI Normal Normal Normal [facility] Comment on above: Order Comment: LU CTOR TO SPECIFY Performed By: #### L 400.0001 ####[facility] [address] [place], [address] BACTERIA 0 SEEN Normal None Seen [facility] Comment on above: Order Comment: LU CTOR TO SPECIFY Performed By: #### L 400.0001 ####[facility] [address] [place], [address] Mucus Ql (Urine sed) 0 SEEN Normal [facility] Comment on above: Order Comment: LU CTOR TO SPECIFY Performed By: #### L 400.0001 ####[facility] [address] [place], [address] WBC 0 SEEN Normal 0-5 [facility] Comment on above: Order Comment: LU CTOR TO SPECIFY Performed By: #### L 400.0001 ####[facility] [address] [place], [place], [address] Urine clarityOrdered By: Rakesh Pederson on 08-12-2024 Clarity (U) Clear Clear [facility] Urine color determinationOrd ered By: Chad Pederson on 08-12-2024 Color (U) Yellow Yellow [facility] Urine glucose detectionOrder ed By: Chad Pederson on 08-12-2024 Glucose Ql (U) Normal mg/dl Normal [facility] Urine leukocyte esterase det ection by dipstickOrdered By: Chad Pederson on 08-12-2024 Leukocyte esterase Test strip Ql (U) Negative Negative [facility] Urine pHOrdered By: Chad connolly on 08-12-2024 pH (U) 6.5 [pH] 5.0 - 8.0 [facility] Urine sediment bacteria coun t by microscopy (number/high power field)Ordered By: Chad Pederson on 08-12-2024 Bacteria LM.HPF (Urine sed) [#/Area] 0 /[HPF] None Seen [facility] Urine specific gravity measu rementOrdered By: Chad Pederson on 08-12-2024 Specific gravity (U) [Rel density] 1.010 1.002-1.03 0 [facility] Urine urobilinogen measureme ntOrdered By: Chad Pederson on 08-12-2024 Urobilinogen Ql (U) Normal mg/dl Normal [facility] White blood cell countOrdere d By: Chad Pederson on 08-12-2024 White blood cell count 0 SEEN /hpf 0-5 [facility] Neurology Visit Reporton Neurology Visit Report Normal [facility] Basic Metabolic Profile (BMP )on 06-25-2024 BUN Normal 7-18 [facility] Comment on above: Result Comment: Canc elled via OM: Order cancelled - Patient discharged Performed By: #### L 500.2500, L100.0100 ####[facility] [address] [place], [place], [id number] BUN/CRE Normal 10-20 [facility] Comment on above: Result Comment: Canc elled via OM: Order cancelled - Patient discharged Performed By: #### L 500.2500, L100.0100 ####[facility] [address] [place], [address] CA,Total Normal 8.5-10.1 [facility] Comment on above: Result Comment: Canc elled via OM: Order cancelled - Patient discharged Performed By: #### L 500.2500, L100.0100 ####[facility] [address] [place], [address] CL Normal 98-107 [facility] Comment on above: Result Comment: Canc elled via OM: Order cancelled - Patient discharged Performed By: #### L 500.2500, L100.0100 ####[facility] [address] [place], [address] CO2 Normal 21.0-32.0 [facility] Comment on above: Result Comment: Canc elled via OM: Order cancelled - Patient discharged Performed By: #### L 500.2500, L100.0100 ####[facility] [address] [place], [address] CREAT,SERUM Normal 0.55-1.02 [facility] Comment on above: Result Comment: Canc elled via OM: Order cancelled - Patient discharged Performed By: #### L 500.2500, L100.0100 ####[facility] [address] [place], [address] EST GFR Normal >60 [facility] Comment on above: Result Comment: Canc elled via OM: Order cancelled - Patient discharged Performed By: #### L 500.2500, L100.0100 ####[facility] [address] [place], [address] EST GFR - AA Normal >60 [facility] Comment on above: Result Comment: Canc elled via OM: Order cancelled - Patient discharged Performed By: #### L 500.2500, L100.0100 ####[facility] [address] [place], [address] GAP Normal 5-15 [facility] Comment on above: Result Comment: Canc elled via OM: Order cancelled - Patient discharged Performed By: #### L 500.2500, L100.0100 ####[facility] [address] [place], [address] GLU Normal 74-106 [facility] Comment on above: Result Comment: Canc elled via OM: Order cancelled - Patient discharged Performed By: #### L 500.2500, L100.0100 ####[facility] [address] [place], [address] Potassium Normal 3.5-5.1 [facility] Comment on above: Result Comment: Canc elled via OM: Order cancelled - Patient discharged Performed By: #### L 500.2500, L100.0100 ####[facility] [address] [place], [address] Basic Metabolic Profile (BMP) Normal 136-145 [facility] Comment on above: Result Comment: Canc elled via OM: Order cancelled - Patient discharged Performed By: #### L 500.2500, L100.0100 ####[facility] [address] [place], [address] CBC W/Diff, Automatedon 12-0 Absolute Neut Normal 2.0-7.7 [facility] Comment on above: Result Comment: Canc elled via OM: Order cancelled - Patient discharged Performed By: #### L 500.2500, L100.0100 ####[facility] [address] [place], [address] HCT Normal 37-47 [facility] Comment on above: Result Comment: Canc elled via OM: Order cancelled - Patient discharged Performed By: #### L 500.2500, L100.0100 ####[facility] [address] [place], [address] HGB Normal 12.0-15.0 [facility] Comment on above: Result Comment: Canc elled via OM: Order cancelled - Patient discharged Performed By: #### L 500.2500, L100.0100 ####[facility] [address] [place], [address] MCH Normal 27.0-32.0 [facility] Comment on above: Result Comment: Canc elled via OM: Order cancelled - Patient discharged Performed By: #### L 500.2500, L100.0100 ####[facility] [address] [place], [address] MCHC Normal 32-36 [facility] Comment on above: Result Comment: Canc elled via OM: Order cancelled - Patient discharged Performed By: #### L 500.2500, L100.0100 ####[facility] [address] [place], [address] MCV Normal 81-99 [facility] Comment on above: Result Comment: Canc elled via OM: Order cancelled - Patient discharged Performed By: #### L 500.2500, L100.0100 ####[facility] [address] [place], [address] NEUT% Normal 47-70 [facility] Comment on above: Result Comment: Canc elled via OM: Order cancelled - Patient discharged Performed By: #### L 500.2500, L100.0100 ####[facility] [address] [place], [address] PLT Normal 150-450 [facility] Comment on above: Result Comment: Canc elled via OM: Order cancelled - Patient discharged Performed By: #### L 500.2500, L100.0100 ####[facility] [address] [place], [address] RBC Normal 4.2-5.4 [facility] Comment on above: Result Comment: Canc elled via OM: Order cancelled - Patient discharged Performed By: #### L 500.2500, L100.0100 ####[facility] [address] [place], [address] RDW CV Normal 11.6-14.6 [facility] Comment on above: Result Comment: Canc elled via OM: Order cancelled - Patient discharged Performed By: #### L 500.2500, L100.0100 ####[facility] [address] [place], [address] RDW SD Normal 35.1-43.9 [facility] Comment on above: Result Comment: Canc elled via OM: Order cancelled - Patient discharged Performed By: #### L 500.2500, L100.0100 ####[facility] [address] [place], [address] WBC Normal 4.4-11.0 [facility] Comment on above: Result Comment: Canc elled via OM: Order cancelled - Patient discharged Performed By: #### L 500.2500, L100.0100 ####[facility] [address] [place], [address] Basic Metabolic Profile (BMP )on 06-24-2024 BUN Normal 7-18 [facility] Comment on above: Result Comment: Canc elled via OM: Order cancelled - Patient discharged Performed By: #### L 100.0100, L500.2500 ####[facility] [address] [place], [address] BUN/CRE Normal 10-20 [facility] Comment on above: Result Comment: Canc elled via OM: Order cancelled - Patient discharged Performed By: #### L 100.0100, L500.2500 ####[facility] [address] [place], [address] CA,Total Normal 8.5-10.1 [facility] Comment on above: Result Comment: Canc elled via OM: Order cancelled - Patient discharged Performed By: #### L 100.0100, L500.2500 ####[facility] [address] [place], [address] CL Normal 98-107 [facility] Comment on above: Result Comment: Canc elled via OM: Order cancelled - Patient discharged Performed By: #### L 100.0100, L500.2500 ####[facility] [address] [place], [address] CO2 Normal 21.0-32.0 [facility] Comment on above: Result Comment: Canc elled via OM: Order cancelled - Patient discharged Performed By: #### L 100.0100, L500.2500 ####[facility] [address] [place], [address] CREAT,SERUM Normal 0.55-1.02 [facility] Comment on above: Result Comment: Canc elled via OM: Order cancelled - Patient discharged Performed By: #### L 100.0100, L500.2500 ####[facility] [address] [place], [address] EST GFR Normal >60 [facility] Comment on above: Result Comment: Canc elled via OM: Order cancelled - Patient discharged Performed By: #### L 100.0100, L500.2500 ####[facility] [address] [place], [address] EST GFR - AA Normal >60 [facility] Comment on above: Result Comment: Canc elled via OM: Order cancelled - Patient discharged Performed By: #### L 100.0100, L500.2500 ####[facility] [address] [place], [address] GAP Normal 5-15 [facility] Comment on above: Result Comment: Canc elled via OM: Order cancelled - Patient discharged Performed By: #### L 100.0100, L500.2500 ####[facility] [address] [place], [address] GLU Normal 74-106 [facility] Comment on above: Result Comment: Canc elled via OM: Order cancelled - Patient discharged Performed By: #### L 100.0100, L500.2500 ####[facility] [address] [place], [address] Potassium Normal 3.5-5.1 [facility] Comment on above: Result Comment: Canc elled via OM: Order cancelled - Patient discharged Performed By: #### L 100.0100, L500.2500 ####[facility] [address] [place], [address] Basic Metabolic Profile (BMP) Normal 136-145 [facility] Comment on above: Result Comment: Canc elled via OM: Order cancelled - Patient discharged Performed By: #### L 100.0100, L500.2500 ####[facility] [address] [place], [address] CBC W/Diff, Automatedon 12-0 -2023 Absolute Neut Normal 2.0-7.7 [facility] Comment on above: Result Comment: Canc elled via OM: Order cancelled - Patient discharged Performed By: #### L 100.0100, L500.2500 ####[facility] [address] [place], [address] HCT Normal 37-47 [facility] Comment on above: Result Comment: Canc elled via OM: Order cancelled - Patient discharged Performed By: #### L 100.0100, L500.2500 ####[facility] [address] [place], [address] HGB Normal 12.0-15.0 [facility] Comment on above: Result Comment: Canc elled via OM: Order cancelled - Patient discharged Performed By: #### L 100.0100, L500.2500 ####[facility] [address] [place], [address] MCH Normal 27.0-32.0 [facility] Comment on above: Result Comment: Canc elled via OM: Order cancelled - Patient discharged Performed By: #### L 100.0100, L500.2500 ####[facility] [address] [place], [address] MCHC Normal 32-36 [facility] Comment on above: Result Comment: Canc elled via OM: Order cancelled - Patient discharged Performed By: #### L 100.0100, L500.2500 ####[facility] [address] [place], [address] MCV Normal 81-99 [facility] Comment on above: Result Comment: Canc elled via OM: Order cancelled - Patient discharged Performed By: #### L 100.0100, L500.2500 ####[facility] [address] [place], [address] NEUT% Normal 47-70 [facility] Comment on above: Result Comment: Canc elled via OM: Order cancelled - Patient discharged Performed By: #### L 100.0100, L500.2500 ####[facility] [address] [place], [address] PLT Normal 150-450 [facility] Comment on above: Result Comment: Canc elled via OM: Order cancelled - Patient discharged Performed By: #### L 100.0100, L500.2500 ####[facility] [address] [place], [address] RBC Normal 4.2-5.4 [facility] Comment on above: Result Comment: Canc elled via OM: Order cancelled - Patient discharged Performed By: #### L 100.0100, L500.2500 ####[facility] [address] [place], [address] RDW CV Normal 11.6-14.6 [facility] Comment on above: Result Comment: Canc elled via OM: Order cancelled - Patient discharged Performed By: #### L 100.0100, L500.2500 ####[facility] [address] [place], [address] RDW SD Normal 35.1-43.9 [facility] Comment on above: Result Comment: Canc elled via OM: Order cancelled - Patient discharged Performed By: #### L 100.0100, L500.2500 ####[facility] [address] [place], [address] WBC Normal 4.4-11.0 [facility] Comment on above: Result Comment: Canc elled via OM: Order cancelled - Patient discharged Performed By: #### L 100.0100, L500.2500 ####[facility] [address] [place], [address] Basic Metabolic Profile (BMP )on 06-23-2024 BUN/CRE 16.3 RATIO Normal 10-20 [facility] Comment on above: Performed By: #### L 100.0500, L500.2500 ####[facility] [address] [place], [address] CA,Total 9.0 mg/dL Normal 8.5-10.1 [facility] Comment on above: Performed By: #### L 100.0500, L500.2500 ####[facility] [address] [place], [address] Chloride [Moles/Vol] 102 mmol/L Normal 98-107 [facility] Comment on above: Performed By: #### L 100.0500, L500.2500 ####[facility] [address] [place], [address] CO2 [Moles/Vol] 32.0 mmol/L Normal 21.0-32.0 [facility] Comment on above: Performed By: #### L 100.0500, L500.2500 ####[facility] [address] [place], [address] Creatinine [Mass/Vol] 0.92 mg/dL Normal 0.55-1.02 [facility] Comment on above: Result Comment: The validity of the calculated GFR GFRAA in patients over70 years has not been determined. Clinical correlation isessential. Performed By: #### L 100.0500, L500.2500 ####[facility] [address] [place], [address] ECRCL 91.40 ml/min Normal [facility] Comment on above: Performed By: #### L 100.0500, L500.2500 ####[facility] [address] [place], [address] EST GFR - AA 80 mL/min Normal >60 [facility] Comment on above: Result Comment: Afri can Nigerian GFR Calc Performed By: #### L 100.0500, L500.2500 ####[facility] [address] [place], [address] GAP 2 Low 5-15 [facility] Comment on above: Performed By: #### L 100.0500, L500.2500 ####[facility] [address] [place], [address] GFR/1.73 sq M.predicted among non-blacks MDRD (S/P/Bld) [Vol rate/Area] 66 mL/min/{1.73_m2} Normal >60 [facility] Comment on above: Result Comment: Non- GFR Calc Performed By: #### L 100.0500, L500.2500 ####[facility] [address] [place], [address] Glucose [Mass/Vol] 103 mg/dL Normal 74-106 [facility] Comment on above: Result Comment: Fast ing Glucose result from 100 to 125 mg/dLsuggests IMPAIRED HOMEOSTASIS per A.D.A. criteria. Performed By: #### L 100.0500, L500.2500 ####[facility] [address] [place], [address] Potassium [Moles/Vol] 4.5 mmol/L Normal 3.5-5.1 [facility] Comment on above: Performed By: #### L 100.0500, L500.2500 ####[facility] [address] [place], [address] Sodium [Moles/Vol] 137 mmol/L Normal 136-145 [facility] Comment on above: Performed By: #### L 100.0500, L500.2500 ####[facility] [address] [place], [address] Urea nitrogen [Mass/Vol] 15 mg/dL Normal 7-18 [facility] Comment on above: Performed By: #### L 100.0500, L500.2500 ####[facility] [address] [place], [address] CBC-Complete Blood Cnt No Di ffon 06-23-2024 Erythrocyte distribution width (RBC) [Ratio] 17.0 % High 11.6-14.6 [facility] Comment on above: Performed By: #### L 100.0500, L500.2500 ####[facility] [address] [place], [address] Hematocrit (Bld) [Volume fraction] 30.6 % Low 37-47 [facility] Comment on above: Performed By: #### L 100.0500, L500.2500 ####[facility] [address] [place], [address] Hemoglobin (Bld) [Mass/Vol] 8.4 g/dL Low 12.0-15.0 [facility] Comment on above: Performed By: #### L 100.0500, L500.2500 ####[facility] [address] [place], [address] MCH (RBC) [Entitic mass] 21.9 pg Low 27.0-32.0 [facility] Comment on above: Performed By: #### L 100.0500, L500.2500 ####[facility] [address] [place], [address] MCHC (RBC) [Mass/Vol] 27.5 g/dL Low 32-36 [facility] Comment on above: Performed By: #### L 100.0500, L500.2500 ####[facility] [address] [place], [address] MCV (RBC) [Entitic vol] 79.9 fL Low 81-99 [facility] Comment on above: Performed By: #### L 100.0500, L500.2500 ####[facility] [address] [place], [address] Platelet mean volume (Bld) [Entitic vol] 10.4 fL Normal 6.2-12.0 [facility] Comment on above: Performed By: #### L 100.0500, L500.2500 ####[facility] [address] [place], [address] Platelets (Bld) [#/Vol] 236 10*3/uL Normal 150-450 [facility] Comment on above: Performed By: #### L 100.0500, L500.2500 ####[facility] [address] [place], [address] RBC (Bld) [#/Vol] 3.83 10*6/uL Low 4.2-5.4 [facility] Comment on above: Performed By: #### L 100.0500, L500.2500 ####[facility] [address] [place], [address] RDW SD 48.0 fl High 35.1-43.9 [facility] Comment on above: Performed By: #### L 100.0500, L500.2500 ####[facility] [address] [place], [address] WBC (Bld) [#/Vol] 8.6 10*3/uL Normal 4.4-11.0 [facility] Comment on above: Performed By: #### L 100.0500, L500.2500 ####[facility] [address] [place], [address] Discharge Instructionon Discharge Instruction Normal [facility] Echo, Limited Studyon 2023 Echo, Limited Study Normal [facility] 12 Lead EKGon 06-22-2024 12 Lead EKG Normal [facility] Abdomen/Pelvis without Conto n 06-22-2024 Abdomen/Pelvis without Cont Normal [facility] BRCon 06-22-2024 RC Normal Neg [facility] Comment on above: Result Comment: [id number] AP RC TRANSFUSED 06/22/24 0738 Performed By: #### B , [facility] ####[facility] [address] [place], [address] Basic Metabolic Profile (BMP )on 06-22-2024 BUN/CRE 18.1 RATIO Normal 10-20 [facility] Comment on above: Order Comment: 'TROP ' Serial specimen #1, #2 or #3: 1 Performed By: #### L 300.4310, L500.2500, L100.0100, L501.4020, L300.3900 ####[facility] [address] [place], [address] CA,Total 8.5 mg/dL Normal 8.5-10.1 [facility] Comment on above: Order Comment: 'TROP ' Serial specimen #1, #2 or #3: 1 Performed By: #### L 300.4310, L500.2500, L100.0100, L501.4020, L300.3900 ####[facility] [address] [place], [address] Chloride [Moles/Vol] 100 mmol/L Normal 98-107 [facility] Comment on above: Order Comment: 'TROP ' Serial specimen #1, #2 or #3: 1 Performed By: #### L 300.4310, L500.2500, L100.0100, L501.4020, L300.3900 ####[facility] [address] [place], [address] CO2 [Moles/Vol] 30.0 mmol/L Normal 21.0-32.0 [facility] Comment on above: Order Comment: 'TROP ' Serial specimen #1, #2 or #3: 1 Performed By: #### L 300.4310, L500.2500, L100.0100, L501.4020, L300.3900 ####[facility] [address] [place], [address] Creatinine [Mass/Vol] 0.89 mg/dL Normal 0.55-1.02 [facility] Comment on above: Order Comment: 'TROP ' Serial specimen #1, #2 or #3: 1 Result Comment: The validity of the calculated GFR GFRAA in patients over70 years has not been determined. Clinical correlation isessential. Performed By: #### L 300.4310, L500.2500, L100.0100, L501.4020, L300.3900 ####[facility] [address] [place], [address] ECRCL 96.46 ml/min Normal [facility] Comment on above: Order Comment: 'TROP ' Serial specimen #1, #2 or #3: 1 Performed By: #### L 300.4310, L500.2500, L100.0100, L501.4020, L300.3900 ####[facility] [address] [place], [address] EST GFR - AA 84 mL/min Normal >60 [facility] Comment on above: Order Comment: 'TROP ' Serial specimen #1, #2 or #3: 1 Result Comment: Afri can Nigerian GFR Calc Performed By: #### L 300.4310, L500.2500, L100.0100, L501.4020, L300.3900 ####[facility] [address] [place], [address] GAP 6 Normal 5-15 [facility] Comment on above: Order Comment: 'TROP ' Serial specimen #1, #2 or #3: 1 Performed By: #### L 300.4310, L500.2500, L100.0100, L501.4020, L300.3900 ####[facility] [address] [place], [address] GFR/1.73 sq M.predicted among non-blacks MDRD (S/P/Bld) [Vol rate/Area] 69 mL/min/{1.73_m2} Normal >60 [facility] Comment on above: Order Comment: 'TROP ' Serial specimen #1, #2 or #3: 1 Result Comment: Non- GFR Calc Performed By: #### L 300.4310, L500.2500, L100.0100, L501.4020, L300.3900 ####[facility] [address] [place], [address] Glucose [Mass/Vol] 121 mg/dL High 74-106 [facility] Comment on above: Order Comment: 'TROP ' Serial specimen #1, #2 or #3: 1 Result Comment: Fast ing Glucose result from 100 to 125 mg/dLsuggests IMPAIRED HOMEOSTASIS per A.D.A. criteria. Performed By: #### L 300.4310, L500.2500, L100.0100, L501.4020, L300.3900 ####[facility] [address] [place], [address] Potassium [Moles/Vol] 4.0 mmol/L Normal 3.5-5.1 [facility] Comment on above: Order Comment: 'TROP ' Serial specimen #1, #2 or #3: 1 Performed By: #### L 300.4310, L500.2500, L100.0100, L501.4020, L300.3900 ####[facility] [address] [place], [address] Sodium [Moles/Vol] 135 mmol/L Low 136-145 [facility] Comment on above: Order Comment: 'TROP ' Serial specimen #1, #2 or #3: 1 Performed By: #### L 300.4310, L500.2500, L100.0100, L501.4020, L300.3900 ####[facility] [address] [place], [address] Urea nitrogen [Mass/Vol] 16 mg/dL Normal 7-18 [facility] Comment on above: Order Comment: 'TROP ' Serial specimen #1, #2 or #3: 1 Performed By: #### L 300.4310, L500.2500, L100.0100, L501.4020, L300.3900 ####[facility] [address] [place], [address] Brain without Contraston Brain without Contrast Normal [facility] CBC W/Diff, Automatedon 12-0 Absolute Lymph 1.46 X10 3/uL Normal 0.83-4.51 [facility] Comment on above: Performed By: #### L 300.4310, L500.2500, L100.0100, L501.4020, L300.3900 ####[facility] [address] [place], [address] Absolute Neut 5.0 X10 3/uL Normal 2.0-7.7 [facility] Comment on above: Performed By: #### L 300.4310, L500.2500, L100.0100, L501.4020, L300.3900 ####[facility] [address] [place], [address] Basophils/100 WBC (Bld) 0.6 % Normal 0-1 [facility] Comment on above: Performed By: #### L 300.4310, L500.2500, L100.0100, L501.4020, L300.3900 ####[facility] [address] [place], [address] Eosinophils/100 WBC (Bld) 1.8 % Normal 0-5 [facility] Comment on above: Performed By: #### L 300.4310, L500.2500, L100.0100, L501.4020, L300.3900 ####[facility] [address] [place], [address] Erythrocyte distribution width (RBC) [Ratio] 15.7 % High 11.6-14.6 [facility] Comment on above: Performed By: #### L 300.4310, L500.2500, L100.0100, L501.4020, L300.3900 ####[facility] [address] [place], [address] Hematocrit (Bld) [Volume fraction] 24.6 % Low 37-47 [facility] Comment on above: Performed By: #### L 300.4310, L500.2500, L100.0100, L501.4020, L300.3900 ####[facility] [address] [place], [address] Hemoglobin (Bld) [Mass/Vol] 6.9 g/dL Low 12.0-15.0 [facility] Comment on above: Performed By: #### L 300.4310, L500.2500, L100.0100, L501.4020, L300.3900 ####[facility] [address] [place], [address] IG% 0.300 Normal 0.0-0.9 [facility] Comment on above: Result Comment: IG% - Immature Granulocytes (promyelocytes, myelocytes andmetamyelocytes) > 1% indicates that a LEFT SHIFT is Present. Performed By: #### L 300.4310, L500.2500, L100.0100, L501.4020, L300.3900 ####[facility] [address] [place], [address] Lymphocytes/100 WBC (Bld) 20.2 % Normal 19-41 [facility] Comment on above: Performed By: #### L 300.4310, L500.2500, L100.0100, L501.4020, L300.3900 ####[facility] [address] [place], [address] MCH (RBC) [Entitic mass] 21.1 pg Low 27.0-32.0 [facility] Comment on above: Performed By: #### L 300.4310, L500.2500, L100.0100, L501.4020, L300.3900 ####[facility] [address] [place], [address] MCHC (RBC) [Mass/Vol] 28.0 g/dL Low 32-36 [facility] Comment on above: Performed By: #### L 300.4310, L500.2500, L100.0100, L501.4020, L300.3900 ####[facility] [address] [place], [address] MCV (RBC) [Entitic vol] 75.2 fL Low 81-99 [facility] Comment on above: Performed By: #### L 300.4310, L500.2500, L100.0100, L501.4020, L300.3900 ####[facility] [address] [place], [address] Monocytes/100 WBC (Bld) 7.5 % Normal 0-10 [facility] Comment on above: Performed By: #### L 300.4310, L500.2500, L100.0100, L501.4020, L300.3900 ####[facility] [address] [place], [address] Neutrophils/100 WBC (Bld) 69.6 % Normal 47-70 [facility] Comment on above: Performed By: #### L 300.4310, L500.2500, L100.0100, L501.4020, L300.3900 ####[facility] [address] [place], [address] Nucleated RBC (Bld) [#/Vol] 0 10*3/uL Normal 0-5 [facility] Comment on above: Performed By: #### L 300.4310, L500.2500, L100.0100, L501.4020, L300.3900 ####[facility] [address] [place], [address] Platelet mean volume (Bld) [Entitic vol] 9.5 fL Normal 6.2-12.0 [facility] Comment on above: Performed By: #### L 300.4310, L500.2500, L100.0100, L501.4020, L300.3900 ####[facility] [address] [place], [address] Platelets (Bld) [#/Vol] 222 10*3/uL Normal 150-450 [facility] Comment on above: Performed By: #### L 300.4310, L500.2500, L100.0100, L501.4020, L300.3900 ####[facility] [address] [place], [address] RBC (Bld) [#/Vol] 3.27 10*6/uL Low 4.2-5.4 [facility] Comment on above: Performed By: #### L 300.4310, L500.2500, L100.0100, L501.4020, L300.3900 ####[facility] [address] [place], [address] RDW SD 42.8 fl Normal 35.1-43.9 [facility] Comment on above: Performed By: #### L 300.4310, L500.2500, L100.0100, L501.4020, L300.3900 ####[facility] [address] [place], [address] WBC (Bld) [#/Vol] 7.2 10*3/uL Normal 4.4-11.0 [facility] Comment on above: Performed By: #### L 300.4310, L500.2500, L100.0100, L501.4020, L300.3900 ####[facility] [address] [place], [address] Chest 1 Viewon 06-22-2024 Chest 1 View Normal [facility] Emergency Department Summary on 06-22-2024 Emergency Department Summary Normal [facility] H AND P Exam - Hospitaliston 06-22-2024 H&P Exam - Hospitalist Normal [facility] Hemoglobin A1con 06-22-2024 HbA1c (Bld) [Mass fraction] 6.0 % High 3.8-5.6 [facility] Comment on above: Result Comment: Norm al < 5.7 % Prediabetic 5.7 - 6.4 % Diabetic >or= 6.5 % Please note range changes. Performed By: #### L 501.9520, L501.9985 ####[facility] [address] [place], [address] L501.4020on 06-22-2024 TROPONIN-I HS 4 pg/mL Normal 3.0-54.0 [facility] Comment on above: Order Comment: 'TROP ' Serial specimen #1, #2 or #3: 1 Result Comment: Plea se Note: New Test Units and Gender Specific Reference Ranges. For more information see Policy Stat Procedure [place] High Sensitivity Troponin (TNIH) and attachments. Performed By: #### L 300.4310, L500.2500, L100.0100, L501.4020, L300.3900 ####[facility] [address] [place], [address] Lipid Profileon 06-22-2024 Cholesterol [Mass/Vol] 176 mg/dL Normal 200 [facility] Comment on above: Order Comment: Comme nts: NPO at [place] prior to lipid panel Result Comment: <200 mg/dL Desirable 200-240 mg/dL Borderline >240 mg/dL High Risk Performed By: #### L 500.4100 ####[facility] [address] [place], [address] Cholesterol in HDL [Mass/Vol] 56 mg/dL Normal [facility] Comment on above: Order Comment: Comme nts: NPO at [place] prior to lipid panel Result Comment: The drugs N-Acetylcysteine and Metamizole may falselydepress this assay. Reference Range HDL <40 mg/dL Low HDL Cholesterol HDL >or= 60 mg/dL High HDL Cholesterol Performed By: #### L 500.4100 ####[facility] [address] [place], [address] Cholesterol in LDL [Mass/Vol] 102 mg/dL Normal 0-130 [facility] Comment on above: Order Comment: Comme nts: NPO at [place] prior to lipid panel Performed By: #### L 500.4100 ####[facility] [address] [place], [address] Cholesterol in VLDL [Mass/Vol] 18 mg/dL Normal 5-40 [facility] Comment on above: Order Comment: Comme nts: NPO at [place] prior to lipid panel Performed By: #### L 500.4100 ####[facility] [address] [place], [address] Triglyceride [Mass/Vol] 91 mg/dL Normal [facility] Comment on above: Order Comment: Comme nts: NPO at [place] prior to lipid panel Result Comment: The drugs N-Acetylcysteine and Metamizole may falselydepress this assay.Serum Triglycerides Reference Interval Normal <150 mg/dL Borderline high 150 - 199 mg/dL High 200 - 499 mg/dL Very High > or = 500 mg/dL Performed By: #### L 500.4100 ####[facility] [address] [place], [address] MR/CON.PCM.NEon 06-22-2024 MR/CON.PCM.NE Normal [facility] Partial Thromboplast Timeon 06-22-2024 aPTT Coag (Bld) [Time] 33.7 s Normal 24.1-36.2 [facility] Comment on above: Performed By: #### L 300.4310, L500.2500, L100.0100, L501.4020, L300.3900 ####[facility] [address] [place], [address] Prothrombin Time w/INRon INR Coag (PPP) [Relative time] 1.2 {INR} Normal [facility] Comment on above: Performed By: #### L 300.4310, L500.2500, L100.0100, L501.4020, L300.3900 ####[facility] [address] [place], [address] PT Coag (PPP) [Time] 14.9 s Normal 11.7-14.9 [facility] Comment on above: Performed By: #### L 300.4310, L500.2500, L100.0100, L501.4020, L300.3900 ####[facility] [address] [place], [address] STROKE Brain/Head without Co nton 06-22-2024 STROKE Brain/Head without Cont Normal [facility] STROKE CTA Head AND Neck W/C onon 06-22-2024 STROKE CTA Head AND Neck W/Con Normal [facility] Thyroid Stim Hormone (TSH)on 06-22-2024 TSH 4.000 uIU/mL High 0.358-3.74 0 [facility] Comment on above: Performed By: #### L 501.9520, L501.9985 ####[facility] [address] [place], [address] Type AND Screenon 06-22-2024 ABO and Rh group Nom (Bld) Blood group A Rh(D) positive Normal [facility] Comment on above: Order Comment: CMV N EG? NNumber of units to transfuse: 1Is pt's Hgb is = to 7.0 mg/dl or Hct </= 21%? YReason for Ordering Blood: ChronicIs there symptomatic anemia? Andrea the blood/blood products to be transfused? YIs the patient having/had surgery? NWhen Violette Performed By: #### B TS, BRC ####[facility] [address] [place], [address] Urinalysis, Completeon 06-22 RBC 10-25 SEEN Normal 0-5 [facility] Comment on above: Order Comment: LU CTOR TO SPECIFY Performed By: #### L 400.0001 ####[facility] [address] [place], [address] BACTERIA 0 SEEN Normal None Seen [facility] Comment on above: Order Comment: LU CTOR TO SPECIFY Performed By: #### L 400.0001 ####[facility] [address] [place], [address] EPI,SQUAMOUS 0 SEEN Normal 5-10 [facility] Comment on above: Order Comment: LU CTOR TO SPECIFY Performed By: #### L 400.0001 ####[facility] [address] [place], [address] Mucus Ql (Urine sed) 0 SEEN Normal [facility] Comment on above: Order Comment: LU CTOR TO SPECIFY Performed By: #### L 400.0001 ####[facility] [address] [place], [address] WBC 0 SEEN Normal 0-5 [facility] Comment on above: Order Comment: COLLE CTOR TO SPECIFY Performed By: #### L 400.0001 ####[facility] [address] [place], [address] Internal Medicine Office Vis iton 06-09-2024 Internal Medicine Office Visit Normal [facility] Abdomen/Pel W ORAL Cont Only on 03-17-2024 Abdomen/Pel W ORAL Cont Only Normal [facility] CNCOon 11-02-2023 CNCO HNO ID: [id number] Author: COORDINATOR, MAMMOGRAPHY, ? Service: ? Author Type: Physician Type: Letter Filed: 11/02/2023 07:27 Note Text: November 02, 2023 PID: [id number] Felisha Perrin [address] [facility] [address] [place] [address] Dear Ms. Perrin, We are pleased to [...] report will be kept on file at [facility] as part of your permanent medical record and are available for your continuing care. Thank you for allowing us to help in meeting your health care needs. Sincerely, Dr. Brothers Interpreting Radiologist [facility] (Normal over 40) Normal [facility] BD DXA - AXIAL SKELETONon BD DXA [...] years, Gender: Female SCANNER INFORMATION: DXA Model: [place] - [place] C [address] Date Scanned: 11/01/2023 1:23 PM CLINICAL HISTORY: [...] had a previous bone density in the [facility] or the previous bone density was performed on a different DXA machine (new, updated model or different location) within the [facility]. VERTEBRAL FRACTURE ASSESSMENT Not performed. IMPRESSION: THE [...] FOR MORE INFORMATION ABOUT DIAGNOSIS AND TREATMENT: [facility] for Osteoporosis and Metabolic Bone Disease:? www.ccf.org/arthritis/osteo National Osteoporosis Foundation:? www.nof.org International Society of Clinical Densitometry www.iscd.org Radiologic Technician: OLVIN Transcribe Date/Time: Nov 05 2023 1:40P Dictated by : OMEGA WILKINSON MD This examination was interpreted and the report reviewed and electronically signed by: OMEGA WILKINSON MD on Nov 05 2023 1:41PM EST [id number] 0.[address] [facility] SCREENINGon 11-01-2023 [facility] SCREENING * * *Final Report* * * DATE OF EXAM: Nov 01 2023 2:06PM WRW [id number] - [facility] SCREENING / PROCEDURE REASON: Z12.39 * * * * Physician Interpretation * * * * RESULT: #[id number] - [facility] SCREENING BILATERAL DIGITAL SCREENING MAMMOGRAM WITH CAD: 11/01/2023 HISTORY: /SEE TECH NOTE /Z12.39 / Screening Mammogram-Patient reports NO symptoms. /priors available for comparison. RESULT: TECHNIQUE: The study was acquired using full field digital technology and interpreted from soft copy. Current study was also evaluated with a Computer Aided Detection (CAD). Comparison is made to exams dated: 02/20/2022 mammogram - [facility], 02/24/2021 ultrasound biopsy, 02/24/2021 mammogram - [facility], 01/04/2021 mammogram, 01/04/2021 ultrasound, and 11/23/2020 mammogram - [facility]. The breasts are almost entirely fatty. No significant masses, calcifications, or other findings are seen in either breast. There has been no significant interval change. IMPRESSION: NEGATIVE There is no mammographic evidence of malignancy. A 1 year screening mammogram is recommended. Jami Brothers M.D., cp/jessica:11/02/2023 07:27:43 copy to: Lynda GUARDADO, ph: [phone] Bumper Straightener(s): RT Debbie(R)(M), [facility] letter sent: Normal over 40 Mammogram BI-RADS: [...] Health, Family Medicine, and Medical/Surgical Oncology, the [facility] has carefully reviewed the data and reached [...] their providers when to stop screening mammograms. Radiologic Technician: Jessica Transcribe Date/Time: Nov 01 2023 1:23P Dictated by: JAMI BROTHERS MD This examination was interpreted and the report reviewed and electronically signed by: JAMI BROTHERS MD on Nov 02 2023 7:27AM EST [id number] Normal [facility] Absolute lymphocyte countOrd ered By: Callum Knutson on 07-02-2023 Lymphocytes Auto (Unsp spec) [#/Vol] 2.40 10*3/uL 0.83-4.51 [facility] Basophil percentageOrdered B y: Callum Knutson on 07-02-2023 Basophil percentage 0-5 SEEN /hpf 0-5 [facility] Basophils/100 WBC (Bld) 0.4 % 0-1 [facility] Chloride [Moles/Vol] 101 mmol/L 98-107 [facility] Eosinophils/100 WBC (Bld) 3.1 % 0-5 [facility] Glucose [Mass/Vol] 100 mg/dL 74-106 [facility] Comment on above: Fasting Glucose resu lt from 100 to 125 mg/dL suggests IMPAIRED HOMEOSTASIS per A.D.A. criteria. Neutrophils (Bld) [#/Vol] 6.1 10*3/uL 2.0-7.7 [facility] Neutrophils/100 WBC (Bld) 63.5 % 47-70 [facility] Potassium [Moles/Vol] 4.1 mmol/L 3.5-5.1 [facility] Comment on above: Slight Hemolysis, Re sult may be falsely increased. Sodium [Moles/Vol] 135 mmol/L 136-145 [facility] WBC (Bld) [#/Vol] 9.6 10*3/uL 4.4-11.0 [facility] Bilirubin Test strip Ql (U)O rdered By: Callum Knutson on 07-02-2023 Bilirubin Ql (U) Negative Negative [facility] Blood erythrocytes count (nu mber/volume)Ordered By: Callum Knutson on 07-02-2023 RBC (Bld) [#/Vol] 3.57 10*6/uL 4.2-5.4 [facility] Blood hemoglobin measurement (mass/volume)Ordered By: Callum Knutson on 07-02-2023 Hemoglobin (Bld) [Mass/Vol] 7.8 g/dL 12.0-15.0 [facility] Blood lymphocytes/100 leukoc ytesOrdered By: Callum Knutsno on 07-02-2023 Lymphocytes/100 WBC (Bld) 24.9 % 19-41 [facility] Blood monocytes/100 leukocyt esOrdered By: Callum Knutson on 07-02-2023 Monocytes/100 WBC (Bld) 7.9 % 0-10 [facility] Blood platelet mean volumeOr dered By: Callum Knutson on 07-02-2023 Platelet mean volume (Bld) [Entitic vol] 10.3 fL 6.2-12.0 [facility] Determination of erythrocyte mean corpuscular volume (MCV)Ordered By: Callum Knutson on 07-02-2023 MCV (RBC) [Entitic vol] 75.6 fL 81-99 [facility] Hematocrit Auto (Bld) [Volum e fraction]Ordered By: Callum Knutson on 07-02-2023 Hematocrit (Bld) [Volume fraction] 27.0 % 37-47 [facility] Ketones Test strip Ql (U)Ord ered By: Callum Knutson on 07-02-2023 Ketones Ql (U) Negative Negative [facility] Laboratory - Chemistry and C hemistry - challengeOrdered By: Callum Knutson on 07-02-2023 CO2 [Moles/Vol] 34.0 mmol/L 21.0-32.0 [facility] Urea nitrogen/Creatinine [Mass ratio] 14.7 mg/mg 10-20 [facility] Laboratory - Hematology and Cell countsOrdered By: Callum Knutson on 07-02-2023 Erythrocyte distribution width (RBC) [Entitic vol] 43.0 fL 35.1-43.9 [facility] Erythrocyte distribution width (RBC) [Ratio] 15.8 % 11.6-14.6 [facility] Immature granulocytes/100 WBC (Bld) 0.200 % 0.0-0.9 [facility] Comment on above: IG% - Immature Granu locytes (promyelocytes, myelocytes and metamyelocytes) > 1% indicates that a LEFT SHIFT is Present. MCH (RBC) [Entitic mass] 21.8 pg 27.0-32.0 [facility] Nucleated RBC/100 WBC (Bld) [Ratio] 0 % 0-5 [facility] MCHC Auto (RBC) [Mass/Vol]Or dered By: Callum Knutson on 07-02-2023 MCHC (RBC) [Mass/Vol] 28.9 g/dL 32-36 [facility] Mucus LM Ql (Urine sed)Order ed By: Callum Knutson on 07-02-2023 Mucus Ql (Urine sed) 0 SEEN /hpf [facility] Nitrite Test strip Ql (U)Ord ered By: Callum Knutson on 07-02-2023 Nitrite Ql (U) Negative Negative [facility] No Panel InformationOrdered By: Callum Knutson on 07-02-2023 Estimated Creatinine Clearance Calc 53.31 ml/min [facility] Estimated GFR (MDRD) Amer 66 mL/min >60 [facility] Comment on above: GFR Calc Estimated GFR (MDRD) Non-Af Amer 55 mL/min >60 [facility] Comment on above: Non- GFR Calc Platelets bldOrdered By: Ramandeep Knutson on 07-02-2023 Platelets (Bld) [#/Vol] 266 10*3/uL 150-450 [facility] Protein Test strip Ql (U)Ord ered By: Callum Knutson on 07-02-2023 Protein Ql (U) Negative Negative [facility] Serum or plasma calcium paddy urement (mass/volume)Ordered By: Callum Knutson on 07-02-2023 Calcium [Mass/Vol] 8.9 mg/dL 8.5-10.1 [facility] Serum or plasma creatinine m easurement (mass/volume)Ordered By: Callum Knutson on 07-02-2023 Creatinine [Mass/Vol] 1.09 mg/dL 0.55-1.02 [facility] Comment on above: The validity of the calculated GFR & GFRAA in patients over 70 years has not been determined. Clinical correlation is essential. Serum or plasma urea nitroge n measurement (mass/volume)Ordered By: Callum Knutson on 07-02-2023 Urea nitrogen [Mass/Vol] 16 mg/dL 7-18 [facility] Squamous epithelial cells de tection in urine sediment by light microscopyOrdered By: Callum Knutson on 07-02-2023 Epithelial cells.squamous LM Ql (Urine sed) 0 SEEN /hpf 5-10 [facility] Thin prep Papanicolaou smear with manual screeningOrdered By: Callum Knutson on 07-02-2023 Thin prep Papanicolaou smear with manual screening 0 5-15 [facility] Urine blood detectionOrdered By: Callum Knutson on 07-02-2023 RBC Ql (U) 10 /ul Negative [facility] RBC Ql (U) 0 SEEN /hpf 0-5 [facility] Urine clarityOrdered By: Ramandeep Knutson on 07-02-2023 Clarity (U) Clear Clear [facility] Urine color determinationOrd ered By: Callum Knutson on 07-02-2023 Color (U) Yellow Yellow [facility] Urine glucose detectionOrder ed By: Callum Knutson on 07-02-2023 Glucose Ql (U) Normal mg/dl Normal [facility] Urine leukocyte esterase det ection by dipstickOrdered By: Callum Knutson on 07-02-2023 Leukocyte esterase Test strip Ql (U) 25 /ul Negative [facility] Urine pHOrdered By: Callum ellison on 07-02-2023 pH (U) 6.0 [pH] 5.0 - 8.0 [facility] Urine sediment bacteria coun t by microscopy (number/high power field)Ordered By: Callum Knutson on 07-02-2023 Bacteria LM.HPF (Urine sed) [#/Area] 0 /[HPF] None Seen [facility] Urine specific gravity measu rementOrdered By: Callum Knutson on 07-02-2023 Specific gravity (U) [Rel density] 1.010 1.002-1.03 0 [facility] Urobilinogen Auto test strip Ql (U)Ordered By: Callum Knutson on 07-02-2023 Urobilinogen Ql (U) Normal mg/dl Normal [facility] Basophil percentageon 2022 Chloride [Moles/Vol] 100 mmol/L 98-107 [facility] Glucose [Mass/Vol] 144 mg/dL 74-106 [facility] Comment on above: Fasting Glucose resu lt greater than or equal to 126 mg/dL suggests DIABETES MELLITUS per A.D.A. criteria. Potassium [Moles/Vol] 4.6 mmol/L 3.5-5.1 [facility] Sodium [Moles/Vol] 137 mmol/L 136-145 [facility] Laboratory - Chemistry and C hemistry - challengeon 02-05-2023 CO2 [Moles/Vol] 34.0 mmol/L 21.0-32.0 [facility] Urea nitrogen/Creatinine [Mass ratio] 17.9 mg/mg 10- [facility] No Panel Informationon 02-05 Estimated GFR (MDRD) Amer 69 mL/min >60 [facility] Comment on above: GFR Calc Estimated GFR (MDRD) Non-Af Amer 57 mL/min >60 [facility] Comment on above: Non- GFR Calc Serum or plasma calcium paddy urement (mass/volume)on 02-05-2023 Calcium [Mass/Vol] 8.5 mg/dL 8.5-10.1 [facility] Serum or plasma creatinine m easurement (mass/volume)on 02-05-2023 Creatinine [Mass/Vol] 1.06 mg/dL 0.55-1.02 [facility] Comment on above: The validity of the calculated GFR & GFRAA in patients over 70 years has not been determined. Clinical correlation is essential. 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 Call forwarded to [employer] has only phone number, no other identifier, unable to leave HIPAA-complaint message If patient calls back please ask if any concerns and if need refills. If so, please ask which medications and which pharmacy to send to. Will have front elevator operator attempt to reschedule patient Tom Montelongo M.D. French Comber PGY-3 This encounter was opened in error. Patient was a No-Show. Please disregard. 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 Drier Repairer Authentication Interface Message Text Addended by: MINNIE EDWARDS on: 06/26/2022 12:07 PM Modules accepted: Level of Service Normal [employer] Basophil percentageon 2021 Chloride [Moles/Vol] 111 mmol/L 98-107 [facility] Work Phone: Glucose [Mass/Vol] 93 mg/dL 74-106 [facility] Work Phone: Potassium [Moles/Vol] 4.9 mmol/L 3.5-5.1 [facility] Work Phone: [phone] Sodium [Moles/Vol] 139 mmol/L 136-145 [facility] Work Phone: [phone] Lactate [Moles/Vol] 0.6 mmol/L 0.4-2.0 [facility]: [phone] Laboratory - Chemistry and C hemistry - challengeon 06-06-2022 CO2 [Moles/Vol] 24.0 mmol/L 21.0-32.0 [facility] Work Phone: [phone] Urea nitrogen/Creatinine [Mass ratio] 24.6 mg/mg 10-20 [facility] Work Phone: No Panel Informationon 06-06 Estimated Creatinine Clearance Calc 49.84 ml/min [facility] Work Phone: Estimated GFR (MDRD) Amer 61 mL/min >60 [facility] Work Phone: Comment on above: GFR Calc Estimated GFR (MDRD) Non-Af Amer 50 mL/min >60 [facility] Work Phone: Comment on above: Non- GFR Calc Serum or plasma calcium paddy urement (mass/volume)on 06-06-2022 Calcium [Mass/Vol] 8.4 mg/dL 8.5-10.1 [facility] Work Phone: [phone] Serum or plasma creatinine m easurement (mass/volume)on 06-06-2022 Creatinine [Mass/Vol] 1.18 mg/dL 0.55-1.02 [facility] Work Phone: Comment on above: The validity of the calculated GFR & GFRAA in patients over 70 years has not been determined. Clinical correlation is essential. Serum or plasma urea nitroge n measurement (mass/volume)on 06-06-2022 Urea nitrogen [Mass/Vol] 29 mg/dL 7-18 [facility] Work Phone: Thin prep Papanicolaou smear with manual screeningon 06-06-2022 Thin prep Papanicolaou smear with manual screening 4 5-15 [facility] Work Phone: Absolute lymphocyte counton 06-05-2022 Lymphocytes Auto (Unsp spec) [#/Vol] 2.21 10*3/uL 0.83-4.51 [facility] Work Phone: Basophil percentageon 2021 Basophil percentage 5-10 SEEN /hpf 0-5 [facility] Work Phone: Chloride [Moles/Vol] 105 mmol/L 98-107 [facility] Work Phone: Glucose [Mass/Vol] 117 mg/dL 74-106 [facility] Work Phone: Comment on above: Fasting Glucose resu lt from 100 to 125 mg/dL suggests IMPAIRED HOMEOSTASIS per A.D.A. criteria. Potassium [Moles/Vol] 5.6 mmol/L 3.5-5.1 [facility] Work Phone: Sodium [Moles/Vol] 136 mmol/L 136-145 [facility] Work Phone: Basophils/100 WBC (Bld) 0.9 % 0-1 [facility] Work Phone: Bilirubin [Mass/Vol] 0.40 mg/dL 0.20-1.00 [facility] Work Phone: Comment on above: For patients on eltr ombopag therapy, use of Dimension [place] TBIL is not recommended. Chloride [Moles/Vol] 104 mmol/L 98-107 [facility] Work Phone: Eosinophils/100 WBC (Bld) 3.0 % 0-5 [facility] Work Phone: Glucose [Mass/Vol] 112 mg/dL 74-106 [facility] Work Phone: Comment on above: Fasting Glucose resu lt from 100 to 125 mg/dL suggests IMPAIRED HOMEOSTASIS per A.D.A. criteria. Neutrophils (Bld) [#/Vol] 4.7 10*3/uL 2.0-7.7 [facility] Work Phone: Neutrophils/100 WBC (Bld) 60.8 % 47-70 [facility] Work Phone: Potassium [Moles/Vol] 6.2 mmol/L 3.5-5.1 [facility] Work Phone: Comment on above: Critical Result(s) C alled at: 18:43:20 06/05/2022 by: Valorie Lo to Ford Olvera NP. Results read back by same. Protein [Mass/Vol] 8.4 g/dL 6.4-8.2 [facility] Work Phone: Sodium [Moles/Vol] 136 mmol/L 136-145 [facility] Work Phone: WBC (Bld) [#/Vol] 7.7 10*3/uL 4.4-11.0 [facility] Work Phone: Bilirubin Test strip Ql (U)o n 06-05-2022 Bilirubin Ql (U) Negative Negative [facility] Work Phone: Blood erythrocytes count (nu mber/volume)on 06-05-2022 RBC (Bld) [#/Vol] 3.86 10*6/uL 4.2-5.4 [facility] Work Phone: [phone] Blood hemoglobin measurement (mass/volume)on 06-05-2022 Hemoglobin (Bld) [Mass/Vol] 9.5 g/dL 12.0-15.0 [facility] Work Phone: Blood lymphocytes/100 leukoc yteson 06-05-2022 Lymphocytes/100 WBC (Bld) 28.9 % 19-41 [facility] Work Phone: Blood monocytes/100 leukocyt eson 06-05-2022 Monocytes/100 WBC (Bld) 6.1 % 0-10 [facility] Work Phone: Blood platelet mean volumeon 06-05-2022 Platelet mean volume (Bld) [Entitic vol] 11.1 fL 6.2-12.0 [facility] Work Phone: [phone] Determination of erythrocyte mean corpuscular volume (MCV)on 06-05-2022 MCV (RBC) [Entitic vol] 81.3 fL 81-99 [facility] Work Phone: [phone] Hematocrit Auto (Bld) [Volum e fraction]on 06-05-2022 Hematocrit (Bld) [Volume fraction] 31.4 % 37-47 [facility] Work Phone: Iron measurement (mass/mass) on 06-05-2022 Iron (Unsp spec) [Mass/Mass] 39 ug/dL 50-170 [facility] Work Phone: [phone] Ketones Test strip Ql (U)on 06-05-2022 Ketones Ql (U) 5 mg/dl Negative [facility] Work Phone: [phone] Laboratory - Chemistry and C hemistry - challengeon 06-05-2022 CO2 [Moles/Vol] 26.0 mmol/L 21.0-32.0 [facility] Work Phone: Magnesium [Mass/Vol] 2.4 mg/dL 1.6-2.6 [facility] Work Phone: [phone] Urea nitrogen/Creatinine [Mass ratio] 21.9 mg/mg 10-20 [facility] Work Phone: [phone] ALP [Catalytic activity/Vol] 220 U/L 45-117 [facility] Work Phone: ALT [Catalytic activity/Vol] 18 U/L 13-56 [facility] Work Phone: CO2 [Moles/Vol] 25.0 mmol/L 21.0-32.0 [facility] Work Phone: Globulin (S) [Mass/Vol] 4.6 g/dL 2.2-4.2 [facility] Work Phone: Urea nitrogen/Creatinine [Mass ratio] 21.1 mg/mg 10-20 [facility] Work Phone: [phone] Laboratory - Hematology and Cell countson 06-05-2022 Erythrocyte distribution width (RBC) [Entitic vol] 50.4 fL 35.1-43.9 [facility] Work Phone: [phone] Erythrocyte distribution width (RBC) [Ratio] 17.2 % 11.6-14.6 [facility] Work Phone: [phone] Immature granulocytes/100 WBC (Bld) 0.300 % 0.0-0.9 [facility] Work Phone: [phone] Comment on above: IG% - Immature Granu locytes (promyelocytes, myelocytes and metamyelocytes) > 1% indicates that a LEFT SHIFT is Present. MCH (RBC) [Entitic mass] 24.6 pg 27.0-32.0 [facility] Work Phone: [phone] Nucleated RBC/100 WBC (Bld) [Ratio] 0 % 0-5 [facility] Work Phone: [phone] MCHC Auto (RBC) [Mass/Vol]on 06-05-2022 MCHC (RBC) [Mass/Vol] 30.3 g/dL 32-36 [facility] Work Phone: [phone] Mucus LM Ql (Urine sed)on Mucus Ql (Urine sed) 0 SEEN /hpf [facility] Work Phone: [phone] Nitrite Test strip Ql (U)on 06-05-2022 Nitrite Ql (U) Negative Negative [facility] Work Phone: [phone] Panel Informationon 06-05 Estimated Creatinine Clearance Calc 33.04 ml/min [facility] Work Phone: [phone] Estimated GFR (MDRD) Amer 38 mL/min >60 [facility] Work Phone: [phone] Comment on above: GFR Calc Estimated GFR (MDRD) Non-Af Amer 31 mL/min >60 [facility] Work Phone: [phone] Comment on above: Non- GFR Calc Estimated GFR (MDRD) Amer 45 mL/min >60 [facility] Work Phone: Comment on above: GFR Calc Estimated GFR (MDRD) Non-Af Amer 38 mL/min >60 [facility] Work Phone: [phone] Comment on above: Non- GFR Calc Total Iron Binding Capacity 418 ug/dL 250-450 [facility] Work Phone: [phone] Platelets bldon 06-05-2022 Platelets (Bld) [#/Vol] 331 10*3/uL 150-450 [facility] Work Phone: [phone] Protein Test strip Ql (U)on 06-05-2022 Protein Ql (U) 30 mg/dl Negative [facility] Work Phone: [phone] Serum or plasma albumin paddy urement (mass/volume)on 06-05-2022 Albumin [Mass/Vol] 3.8 g/dL 3.2-5.0 [facility] Work Phone: [phone] Serum or plasma albumin/glob ulin mass ratioon 06-05-2022 Albumin/Globulin [Mass ratio] 0.8 {ratio} 0.9-2.4 [facility] Work Phone: [phone] Serum or plasma calcium paddy urement (mass/volume)on 06-05-2022 Calcium [Mass/Vol] 8.6 mg/dL 8.5-10.1 [facility] Work Phone: [phone] Calcium [Mass/Vol] 9.7 mg/dL 8.5-10.1 [facility] Work Phone: [phone] Serum or plasma creatinine m easurement (mass/volume)on 06-05-2022 Creatinine [Mass/Vol] 1.78 mg/dL 0.55-1.02 [facility] Work Phone: [phone] Comment on above: The validity of the calculated GFR & GFRAA in patients over 70 years has not been determined. Clinical correlation is essential. Creatinine [Mass/Vol] 1.52 mg/dL 0.55-1.02 [facility] Work Phone: Comment on above: The validity of the calculated GFR & GFRAA in patients over 70 years has not been determined. Clinical correlation is essential. Serum or plasma iron saturat ion measurement (mass fraction)on 06-05-2022 Iron saturation [Mass fraction] 9.3 % 15.0-55.0 [facility] Work Phone: Serum or plasma urea nitroge n measurement (mass/volume)on 06-05-2022 Urea nitrogen [Mass/Vol] 39 mg/dL -18 [facility] Work Phone: [phone] Urea nitrogen [Mass/Vol] 32 mg/dL 02-06 [facility] Work Phone: [phone] Squamous epithelial cells de tection in urine sediment by light microscopyon 06-05-2022 Epithelial cells.squamous LM Ql (Urine sed) 0-5 SEEN /hpf 5-10 [facility] Work Phone: Thin prep Papanicolaou smear with manual screeningon 06-05-2022 Thin prep Papanicolaou smear with manual screening 5 5-15 [facility] Work Phone: Thin prep Papanicolaou smear with manual screening 54 U/L 15-37 [facility] Work Phone: Thin prep Papanicolaou smear with manual screening 7 5-15 [facility] Work Phone: Urine blood detectionon 05-23 RBC Ql (U) 25 /ul Negative [facility] Work Phone: RBC Ql (U) 0-5 SEEN /hpf 0-5 [facility] Work Phone: Urine clarityon 06-05-2022 Clarity (U) Sl. Cloudy Clear [facility] Work Phone: Urine color determinationon 06-05-2022 Color (U) Yellow Yellow [facility] Work Phone: Urine glucose detectionon Glucose Ql (U) Normal mg/dl Normal [facility] Work Phone: [phone] Urine leukocyte esterase det ection by dipstickon 06-05-2022 Leukocyte esterase Test strip Ql (U) 500 /ul Negative [facility] Work Phone: Urine pHon 06-05-2022 pH (U) 5.0 [pH] 5.0 - 8.0 [facility] Work Phone: Urine sediment bacteria coun t by microscopy (number/high power field)on 06-05-2022 Bacteria LM.HPF (Urine sed) [#/Area] 2 /[HPF] None Seen [facility] Work Phone: Urine sediment renal epithel ial cell count by microscopy (number/high power field)on 06-05-2022 Epithelial cells.renal LM.HPF (Urine sed) [#/Area] 0 /[HPF] 0-5 [facility] Work Phone: Urine specific gravity measu rementon 06-05-2022 Specific gravity (U) [Rel density] 1.020 1.002-1.03 0 [facility] Work Phone: Urobilinogen Auto test strip Ql (U)on 06-05-2022 Urobilinogen Ql (U) 1 mg/dl Normal [facility] Work Phone: Progress Noteson 05-10-2022 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 Talks to and [...] dialogue with therapist: Yes Suicide Screener: C-SSRS [place]-Suicide Severity Rating Scale Able to complete [place]-Suicide Severity Rating Scale with Patient?: Yes 1) [...] med (more content not included)... Normal [employer] Bilirubin Test strip Ql (U)o n 05-01-2022 Bilirubin Ql (U) Negative Negative [facility] Work Phone: Ketones Test strip Ql (U)on 05-01-2022 Ketones Ql (U) 5 mg/dl Negative [facility] Work Phone: Nitrite Test strip Ql (U)on 05-01-2022 Nitrite Ql (U) Negative Negative [facility] Work Phone: Protein Test strip Ql (U)on 05-01-2022 Protein Ql (U) 15 mg/dl Negative [facility] Work Phone: Urine blood detectionon 04-22 RBC Ql (U) 10 /ul Negative [facility] Work Phone: Urine clarityon 05-01-2022 Clarity (U) Sl. Cloudy Clear [facility] Work Phone: Urine color determinationon 05-01-2022 Color (U) Yellow Yellow [facility] Work Phone: Urine glucose detectionon Glucose Ql (U) Normal mg/dl Normal [facility] Work Phone: Urine leukocyte esterase det ection by dipstickon 05-01-2022 Leukocyte esterase Test strip Ql (U) 500 /ul Negative [facility] Work Phone: Urine pHon 05-01-2022 pH (U) 5.0 [pH] 5.0 - 8.0 [facility] Work Phone: Urine specific gravity measu rementon 05-01-2022 Specific gravity (U) [Rel density] 1.015 1.002-1.03 0 [facility] Work Phone: Urobilinogen Auto test strip Ql (U)on 05-01-2022 Urobilinogen Ql (U) Normal mg/dl Normal [facility] Work Phone: Telephone Encounteron 2021 Clothes Drier Repairer Authentication Interface Message Text Last visit with Judy Gomez DO (Resident) Psychiatry 11/02/21 Normal [employer] Absolute lymphocyte counton 04-01-2022 Lymphocytes Auto (Unsp spec) [#/Vol] 2.14 10*3/uL 0.83-4.51 [facility] Work Phone: Basophil percentageon 2021 Basophils/100 WBC (Bld) 0.5 % 0-1 [facility] Work Phone: Chloride [Moles/Vol] 106 mmol/L 98-107 [facility] Work Phone: Eosinophils/100 WBC (Bld) 1.3 % 0-5 [facility] Work Phone: Glucose [Mass/Vol] 108 mg/dL 74-106 [facility] Work Phone: Comment on above: Fasting Glucose resu lt from 100 to 125 mg/dL suggests IMPAIRED HOMEOSTASIS per A.D.A. criteria. Neutrophils (Bld) [#/Vol] 5.7 10*3/uL 2.0-7.7 [facility] Work Phone: Neutrophils/100 WBC (Bld) 66.3 % 47-70 [facility] Work Phone: Potassium [Moles/Vol] 3.9 mmol/L 3.5-5.1 [facility] Work Phone: Sodium [Moles/Vol] 138 mmol/L 136-145 [facility] Work Phone: WBC (Bld) [#/Vol] 8.5 10*3/uL 4.4-11.0 [facility] Work Phone: Blood erythrocytes count (nu mber/volume)on 04-01-2022 RBC (Bld) [#/Vol] 3.17 10*6/uL 4.2-5.4 [facility] Work Phone: Blood hemoglobin measurement (mass/volume)on 04-01-2022 Hemoglobin (Bld) [Mass/Vol] 8.3 g/dL 12.0-15.0 [facility] Work Phone: Blood lymphocytes/100 leukoc yteson 04-01-2022 Lymphocytes/100 WBC (Bld) 25.1 % 19-41 [facility] Work Phone: Blood monocytes/100 leukocyt eson 04-01-2022 Monocytes/100 WBC (Bld) 6.6 % 0-10 [facility] Work Phone: Blood platelet mean volumeon 04-01-2022 Platelet mean volume (Bld) [Entitic vol] 10.9 fL 6.2-12.0 [facility] Work Phone: [phone] Determination of erythrocyte mean corpuscular volume (MCV)on 04-01-2022 MCV (RBC) [Entitic vol] 84.5 fL 81-99 [facility] Work Phone: [phone] Hematocrit Auto (Bld) [Volum e fraction]on 04-01-2022 Hematocrit (Bld) [Volume fraction] 26.8 % 37-47 [facility] Work Phone: [phone] Laboratory - Chemistry and C hemistry - challengeon 04-01-2022 CO2 [Moles/Vol] 23.0 mmol/L 21.0-32.0 [facility] Work Phone: [phone] Magnesium [Mass/Vol] 2.1 mg/dL 1.6-2.6 [facility] Work Phone: [phone] Urea nitrogen/Creatinine [Mass ratio] 18.4 mg/mg 10-20 [facility] Work Phone: [phone] Laboratory - Hematology and Cell countson 04-01-2022 Erythrocyte distribution width (RBC) [Entitic vol] 49.7 fL 35.1-43.9 [facility] Work Phone: [phone] Erythrocyte distribution width (RBC) [Ratio] 15.9 % 11.6-14.6 [facility] Work Phone: [phone] Immature granulocytes/100 WBC (Bld) 0.200 % 0.0-0.9 [facility] Work Phone: [phone] Comment on above: IG% - Immature Granu locytes (promyelocytes, myelocytes and metamyelocytes) > 1% indicates that a LEFT SHIFT is Present. MCH (RBC) [Entitic mass] 26.2 pg 27.0-32.0 [facility] Work Phone: [phone] Nucleated RBC/100 WBC (Bld) [Ratio] 0 % 0-5 [facility] Work Phone: [phone] MCHC Auto (RBC) [Mass/Vol]on 04-01-2022 MCHC (RBC) [Mass/Vol] 31.0 g/dL 32-36 [facility] Work Phone: No Panel Informationon 04-01 Troponin I High Sensitivity 7 pg/mL 3.0-54.0 [facility] Work Phone: Comment on above: Please Note: New Daniella t Units and Gender Specific Reference Ranges. For more information see Policy Stat Procedure [facility] High Sensitivity Troponin (TNIH) and attachments. Estimated Creatinine Clearance Calc 57.09 ml/min [facility] Work Phone: Estimated GFR (MDRD) Amer 71 mL/min >60 [facility] Work Phone: Comment on above: GFR Calc Estimated GFR (MDRD) Non-Af Amer 59 mL/min >60 [facility] Work Phone: Comment on above: Non- GFR Calc Platelets bldon 04-01-2022 Platelets (Bld) [#/Vol] 373 10*3/uL 150-450 [facility] Work Phone: Serum or plasma calcium paddy urement (mass/volume)on 04-01-2022 Calcium [Mass/Vol] 9.2 mg/dL 8.5-10.1 [facility] Work Phone: Serum or plasma creatinine m easurement (mass/volume)on 04-01-2022 Creatinine [Mass/Vol] 1.03 mg/dL 0.55-1.02 [facility] Work Phone: Comment on above: The validity of the calculated GFR & GFRAA in patients over 70 years has not been determined. Clinical correlation is essential. 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 Pended 90 day supply. 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 Interface Message Text Last visit with Psychiatry Tom Montelongo was 02/08/2022 Next visit with Psychiatry (Tom Montelongo) is 05/10/2022 Normal [facility] Absolute lymphocyte counton 03-06-2022 Lymphocytes Auto (Unsp spec) [#/Vol] 2.28 10*3/uL 0.83-4.51 [facility] Work Phone: Basophil percentageon 2021 Basophil percentage 5-10 SEEN /hpf 0-5 [facility] Work Phone: Basophils/100 WBC (Bld) 0.5 % 0-1 [facility] Work Phone: Chloride [Moles/Vol] 105 mmol/L 98-107 [facility] Work Phone: Eosinophils/100 WBC (Bld) 2.0 % 0-5 [facility] Work Phone: Glucose [Mass/Vol] 98 mg/dL 74-106 [facility] Work Phone: Neutrophils (Bld) [#/Vol] 5.6 10*3/uL 2.0-7.7 [facility] Work Phone: Neutrophils/100 WBC (Bld) 64.6 % 47-70 [facility] Work Phone: Potassium [Moles/Vol] 4.5 mmol/L 3.5-5.1 [facility] Work Phone: Sodium [Moles/Vol] 138 mmol/L 136-145 [facility] Work Phone: WBC (Bld) [#/Vol] 8.6 10*3/uL 4.4-11.0 [facility] Work Phone: Bilirubin Test strip Ql (U)o n 03-06-2022 Bilirubin Ql (U) Negative Negative [facility] Work Phone: Blood erythrocytes count (nu mber/volume)on 03-06-2022 RBC (Bld) [#/Vol] 2.82 10*6/uL 4.2-5.4 [facility] Work Phone: Blood hemoglobin measurement (mass/volume)on 03-06-2022 Hemoglobin (Bld) [Mass/Vol] 7.9 g/dL 12.0-15.0 [facility] Work Phone: [phone] Blood lymphocytes/100 leukoc yteson 03-06-2022 Lymphocytes/100 WBC (Bld) 26.6 % 19-41 [facility] Work Phone: [phone] Blood monocytes/100 leukocyt eson 03-06-2022 Monocytes/100 WBC (Bld) 6.1 % 0-10 [facility] Work Phone: Blood platelet mean volumeon 03-06-2022 Platelet mean volume (Bld) [Entitic vol] 10.3 fL 6.2-12.0 [facility] Work Phone: Determination of erythrocyte mean corpuscular volume (MCV)on 03-06-2022 MCV (RBC) [Entitic vol] 92.6 fL 81-99 [facility] Work Phone: Hematocrit Auto (Bld) [Volum e fraction]on 03-06-2022 Hematocrit (Bld) [Volume fraction] 26.1 % 37-47 [facility] Work Phone: Hyaline casts LM.LPF (Urine sed) [#/Area]on 03-06-2022 Hyaline casts (Urine sed) [#/Area] 0 /[LPF] 0-5 [facility] Work Phone: Ketones Test strip Ql (U)on 03-06-2022 Ketones Ql (U) 5 mg/dl Negative [facility] Work Phone: [phone] Laboratory - Chemistry and C hemistry - challengeon 03-06-2022 CO2 [Moles/Vol] 26.0 mmol/L 21.0-32.0 [facility] Work Phone: Urea nitrogen/Creatinine [Mass ratio] 20.5 mg/mg 10-20 [facility] Work Phone: Laboratory - Hematology and Cell countson 03-06-2022 Erythrocyte distribution width (RBC) [Entitic vol] 50.5 fL 35.1-43.9 [facility] Work Phone: [phone] Erythrocyte distribution width (RBC) [Ratio] 14.9 % 11.6-14.6 [facility] Work Phone: [phone] Immature granulocytes/100 WBC (Bld) 0.200 % 0.0-0.9 [facility] Work Phone: [phone] Comment on above: IG% - Immature Granu locytes (promyelocytes, myelocytes and metamyelocytes) > 1% indicates that a LEFT SHIFT is Present. MCH (RBC) [Entitic mass] 28.0 pg 27.0-32.0 [facility] Work Phone: [phone] Nucleated RBC/100 WBC (Bld) [Ratio] 0.2 % 0-5 [facility] Work Phone: [phone] MCHC Auto (RBC) [Mass/Vol]on 03-06-2022 MCHC (RBC) [Mass/Vol] 30.3 g/dL 32-36 [facility] Work Phone: Mucus LM Ql (Urine sed)on Mucus Ql (Urine sed) 1+ /hpf [facility] Work Phone: [phone] Nitrite Test strip Ql (U)on 03-06-2022 Nitrite Ql (U) Negative Negative [facility] Work Phone: [phone] Panel Informationon 03-06 Estimated Creatinine Clearance Calc 66.82 ml/min [facility] Work Phone: [phone] Estimated GFR (MDRD) Amer 86 mL/min >60 [facility] Work Phone: [phone] Comment on above: GFR Calc Estimated GFR (MDRD) Non-Af Amer 71 mL/min >60 [facility] Work Phone: [phone] Comment on above: Non- GFR Calc Platelets bldon 03-06-2022 Platelets (Bld) [#/Vol] 346 10*3/uL 150-450 [facility] Work Phone: Protein Test strip Ql (U)on 03-06-2022 Protein Ql (U) 15 mg/dl Negative [facility] Work Phone: [phone] Serum or plasma calcium paddy urement (mass/volume)on 03-06-2022 Calcium [Mass/Vol] 9.5 mg/dL 8.5-10.1 [facility] Work Phone: Serum or plasma creatinine m easurement (mass/volume)on 03-06-2022 Creatinine [Mass/Vol] 0.88 mg/dL 0.55-1.02 [facility] Work Phone: Comment on above: The validity of the calculated GFR & GFRAA in patients over 70 years has not been determined. Clinical correlation is essential. Serum or plasma urea nitroge n measurement (mass/volume)on 03-06-2022 Urea nitrogen [Mass/Vol] 18 mg/dL 7-18 [facility] Work Phone: Squamous epithelial cells de tection in urine sediment by light microscopyon 03-06-2022 Epithelial cells.squamous LM Ql (Urine sed) 0-5 SEEN /hpf 5-10 [facility] Work Phone: Thin prep Papanicolaou smear with manual screeningon 03-06-2022 Thin prep Papanicolaou smear with manual screening 7 12-04 [facility] Work Phone: Urine blood detectionon 02-20 RBC Ql (U) Negative Negative [facility] Work Phone: [phone] RBC Ql (U) 0 SEEN /hpf 0-5 [facility] Work Phone: [phone] Urine clarityon 03-06-2022 Clarity (U) Clear Clear [facility] Work Phone: [phone] Urine color determinationon 03-06-2022 Color (U) Yellow Yellow [facility] Work Phone: [phone] Urine glucose detectionon Glucose Ql (U) Normal mg/dl Normal [facility] Work Phone: Urine leukocyte esterase det ection by dipstickon 03-06-2022 Leukocyte esterase Test strip Ql (U) 100 /ul Negative [facility] Work Phone: Urine pHon 03-06-2022 pH (U) 6.0 [pH] 5.0 - 8.0 [facility] Work Phone: Urine sediment bacteria coun t by microscopy (number/high power field)on 03-06-2022 Bacteria LM.HPF (Urine sed) [#/Area] 1 /[HPF] None Seen [facility] Work Phone: Urine specific gravity measu rementon 03-06-2022 Specific gravity (U) [Rel density] 1.020 1.002-1.03 0 [facility] Work Phone: Urobilinogen Auto test strip Ql (U)on 03-06-2022 Urobilinogen Ql (U) Normal mg/dl Normal [facility] Work Phone: US DVT LOWER LTon [...] imaged segments of the left lower extremity. Radiologic Technician: OLVIN Transcribe Date/Time: Feb 21 2022 3:54P Dictated by : VERA ELIZABETH MD This examination was interpreted and the report reviewed and electronically signed by: VERA ELIZABETH MD on Feb 21 2022 3:56PM EST [id number] Normal [facility] PÉREZ SCREENINGon 02-20-2022 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 Location of Patient: Home of patient Telephone Encounter This visit was initiated by the patient / provider and the patient and provider interacted in real time. Location of the patient: Home of patient Location of the provider: [facility] Reviewed informed consent with patient: yes - see MR Patient/parent indicated understanding of informed consent: yes see MR Phone numbers Preferred phone #: [phone] Verified number (above) and current location (in [...] dialogue with therapist: Yes Suicide Screener: C-SSRS [place]-Suicide Severity Rating Scale Able to complete [place]-Suicide Severity Rating Scale with Patient?: Yes 1) [...] y (more content not included)... Normal [employer] Absolute lymphocyte counton 01-19-2022 Lymphocytes Auto (Unsp spec) [#/Vol] 2.22 10*3/uL 0.83-4.51 [facility] Work Phone: Basophil percentageon 2021 Basophils/100 WBC (Bld) 0.5 % 0-1 [facility] Work Phone: Chloride [Moles/Vol] 106 mmol/L 98-107 [facility] Work Phone: Eosinophils/100 WBC (Bld) 1.4 % 0-5 [facility] Work Phone: Glucose [Mass/Vol] 97 mg/dL 74-106 [facility] Work Phone: Neutrophils (Bld) [#/Vol] 2.8 10*3/uL 2.0-7.7 [facility] Work Phone: Neutrophils/100 WBC (Bld) 49.8 % 47-70 [facility] Work Phone: Potassium [Moles/Vol] 4.1 mmol/L 3.5-5.1 [facility] Work Phone: Sodium [Moles/Vol] 140 mmol/L 136-145 [facility] Work Phone: WBC (Bld) [#/Vol] 5.6 10*3/uL 4.4-11.0 [facility] Work Phone: Blood erythrocytes count (nu mber/volume)on 01-19-2022 RBC (Bld) [#/Vol] 2.56 10*6/uL 4.2-5.4 [facility] Work Phone: Blood hemoglobin measurement (mass/volume)on 01-19-2022 Hemoglobin (Bld) [Mass/Vol] 7.2 g/dL 12.0-15.0 [facility] Work Phone: Blood lymphocytes/100 leukoc yteson 01-19-2022 Lymphocytes/100 WBC (Bld) 39.8 % 19-41 [facility] Work Phone: Blood monocytes/100 leukocyt eson 01-19-2022 Monocytes/100 WBC (Bld) 8.1 % 0-10 [facility] Work Phone: Blood platelet mean volumeon 01-19-2022 Platelet mean volume (Bld) [Entitic vol] 10.2 fL 6.2-12.0 [facility] Work Phone: [phone] Determination of erythrocyte mean corpuscular volume (MCV)on 01-19-2022 MCV (RBC) [Entitic vol] 92.6 fL 81-99 [facility] Work Phone: [phone] Hematocrit Auto (Bld) [Volum e fraction]on 01-19-2022 Hematocrit (Bld) [Volume fraction] 23.7 % 37-47 [facility] Work Phone: [phone] Laboratory - Chemistry and C hemistry - challengeon 01-19-2022 CO2 [Moles/Vol] 29.0 mmol/L 21.0-32.0 [facility] Work Phone: [phone] Urea nitrogen/Creatinine [Mass ratio] 21.1 mg/mg 10-20 [facility] Work Phone: [phone] Laboratory - Hematology and Cell countson 01-19-2022 Erythrocyte distribution width (RBC) [Entitic vol] 50.0 fL 35.1-43.9 [facility] Work Phone: [phone] Erythrocyte distribution width (RBC) [Ratio] 14.7 % 11.6-14.6 [facility] Work Phone: [phone] Immature granulocytes/100 WBC (Bld) 0.400 % 0.0-0.9 [facility] Work Phone: [phone] Comment on above: IG% - Immature Granu locytes (promyelocytes, myelocytes and metamyelocytes) > 1% indicates that a LEFT SHIFT is Present. MCH (RBC) [Entitic mass] 28.1 pg 27.0-32.0 [facility] Work Phone: [phone] Nucleated RBC/100 WBC (Bld) [Ratio] 0 % 0-5 [facility] Work Phone: [phone] MCHC Auto (RBC) [Mass/Vol]on 01-19-2022 MCHC (RBC) [Mass/Vol] 30.4 g/dL 32-36 [facility] Work Phone: [phone] Panel Informationon 01-19 Estimated Creatinine Clearance Calc 79.61 ml/min [facility] Work Phone: Estimated GFR (MDRD) Amer 109 mL/min >60 [facility] Work Phone: [phone] Comment on above: GFR Calc Estimated GFR (MDRD) Non-Af Amer 90 mL/min >60 [facility] Work Phone: Comment on above: Non- GFR Calc Platelets bldon 01-19-2022 Platelets (Bld) [#/Vol] 190 10*3/uL 150-450 [facility] Work Phone: [phone] Serum or plasma calcium paddy urement (mass/volume)on 01-19-2022 Calcium [Mass/Vol] 8.6 mg/dL 8.5-10.1 [facility] Work Phone: [phone] Serum or plasma creatinine m easurement (mass/volume)on 01-19-2022 Creatinine [Mass/Vol] 0.71 mg/dL 0.55-1.02 [facility] Work Phone: [phone] Comment on above: The validity of the calculated GFR & GFRAA in patients over 70 years has not been determined. Clinical correlation is essential. Serum or plasma urea nitroge n measurement (mass/volume)on 01-19-2022 Urea nitrogen [Mass/Vol] 15 mg/dL 7-18 [facility] Work Phone: [phone] Thin prep Papanicolaou smear with manual screeningon 01-19-2022 Thin prep Papanicolaou smear with manual screening 5 5-15 [facility] Work Phone: [phone] Absolute lymphocyte counton 01-18-2022 Lymphocytes Auto (Unsp spec) [#/Vol] 2.28 10*3/uL 0.83-4.51 [facility] Work Phone: [phone] Basophil percentageon 2021 Bilirubin [Mass/Vol] 0.10 mg/dL 0.20-1.00 [facility] Work Phone: [phone] Comment on above: For patients on eltr ombopag therapy, use of Dimension [place] TBIL is not recommended. Protein [Mass/Vol] 6.9 g/dL 6.4-8.2 [facility] Work Phone: Basophils/100 WBC (Bld) 0.4 % 0-1 [facility] Work Phone: Bilirubin [Mass/Vol] 0.20 mg/dL 0.20-1.00 [facility] Work Phone: Comment on above: For patients on eltr ombopag therapy, use of Dimension [place] TBIL is not recommended. Chloride [Moles/Vol] 107 mmol/L 98-107 [facility] Work Phone: Eosinophils/100 WBC (Bld) 1.8 % 0-5 [facility] Work Phone: Glucose [Mass/Vol] 101 mg/dL 74-106 [facility] Work Phone: Comment on above: Fasting Glucose resu lt from 100 to 125 mg/dL suggests IMPAIRED HOMEOSTASIS per A.D.A. criteria. Neutrophils (Bld) [#/Vol] 4.1 10*3/uL 2.0-7.7 [facility] Work Phone: Neutrophils/100 WBC (Bld) 57.9 % 47-70 [facility] Work Phone: Potassium [Moles/Vol] 4.5 mmol/L 3.5-5.1 [facility] Work Phone: Protein [Mass/Vol] 7.4 g/dL 6.4-8.2 [facility] Work Phone: Sodium [Moles/Vol] 140 mmol/L 136-145 [facility] Work Phone: WBC (Bld) [#/Vol] 7.1 10*3/uL 4.4-11.0 [facility] Work Phone: Blood erythrocytes count (nu mber/volume)on 01-18-2022 RBC (Bld) [#/Vol] 2.61 10*6/uL 4.2-5.4 [facility] Work Phone: Blood hemoglobin measurement (mass/volume)on 01-18-2022 Hemoglobin (Bld) [Mass/Vol] 7.2 g/dL 12.0-15.0 [facility] Work Phone: Blood lymphocytes/100 leukoc yteson 01-18-2022 Lymphocytes/100 WBC (Bld) 32.0 % 19-41 [facility] Work Phone: [phone] Blood monocytes/100 leukocyt eson 01-18-2022 Monocytes/100 WBC (Bld) 7.6 % 0-10 [facility] Work Phone: Blood platelet mean volumeon 01-18-2022 Platelet mean volume (Bld) [Entitic vol] 11.0 fL 6.2-12.0 [facility] Work Phone: [phone] Determination of erythrocyte mean corpuscular volume (MCV)on 01-18-2022 MCV (RBC) [Entitic vol] 93.9 fL 81-99 [facility] Work Phone: [phone] Hematocrit Auto (Bld) [Volum e fraction]on 01-18-2022 Hematocrit (Bld) [Volume fraction] 24.5 % 37-47 [facility] Work Phone: INR in Blood by Coagulation assayon 01-18-2022 INR Coag (Bld) [Relative time] 1.4 {INR} [facility] Work Phone: [phone] Iron measurement (mass/mass) on 01-18-2022 Iron (Unsp spec) [Mass/Mass] 16 ug/dL 50-170 [facility] Work Phone: Laboratory - Chemistry and C hemistry - challengeon 01-18-2022 ALP [Catalytic activity/Vol] 112 U/L 45-117 [facility] Work Phone: ALT [Catalytic activity/Vol] 17 U/L 13-56 [facility] Work Phone: [phone] Cobalamin (Vitamin B12) [Mass/Vol] 343 pg/mL 211-911 [facility] Work Phone: [phone] Free T4 [Mass/Vol] 0.83 ng/dL 0.76-1.46 [facility]: Globulin (S) [Mass/Vol] 3.8 g/dL 2.2-4.2 [facility] Work Phone: ALP [Catalytic activity/Vol] 115 U/L 45-117 [facility] Work Phone: [phone] ALT [Catalytic activity/Vol] 23 U/L 13-56 [facility] Work Phone: [phone] CO2 [Moles/Vol] 28.0 mmol/L 21.0-32.0 [facility] Work Phone: [phone] Globulin (S) [Mass/Vol] 4.0 g/dL 2.2-4.2 [facility] Work Phone: [phone] Lipase [Catalytic activity/Vol] 139 U/L 73-393 [facility] Work Phone: [phone] Urea nitrogen/Creatinine [Mass ratio] 23.0 mg/mg 10-20 [facility] Work Phone: Laboratory - Coagulationon 0 01-18-2022 PT Coag (PPP) [Time] 17.0 s 11.7-14.9 [facility] Work Phone: Laboratory - Hematology and Cell countson 01-18-2022 Erythrocyte distribution width (RBC) [Entitic vol] 50.7 fL 35.1-43.9 [facility] Work Phone: [phone] Erythrocyte distribution width (RBC) [Ratio] 14.6 % 11.6-14.6 [facility] Work Phone: [phone] Immature granulocytes/100 WBC (Bld) 0.300 % 0.0-0.9 [facility] Work Phone: Comment on above: IG% - Immature Granu locytes (promyelocytes, myelocytes and metamyelocytes) > 1% indicates that a LEFT SHIFT is Present. MCH (RBC) [Entitic mass] 27.6 pg 27.0-32.0 [facility] Work Phone: Nucleated RBC/100 WBC (Bld) [Ratio] 0 % 0-5 [facility] Work Phone: [phone] MCHC Auto (RBC) [Mass/Vol]on 01-18-2022 MCHC (RBC) [Mass/Vol] 29.4 g/dL 32-36 [facility] Work Phone: No Panel Informationon 01-18 Thyroid Stimulating Hormone (TSH) 2.48 uIU/mL 0.358-3.74 [facility] Work Phone: [phone] Total Iron Binding Capacity 391 ug/dL 250-450 [facility] Work Phone: [phone] Estimated Creatinine Clearance Calc 64.97 ml/min [facility] Work Phone: [phone] Estimated GFR (MDRD) Amer 87 mL/min >60 [facility] Work Phone: [phone] Comment on above: GFR Calc Estimated GFR (MDRD) Non-Af Amer 72 mL/min >60 [facility] Work Phone: [phone] Comment on above: Non- GFR Calc Troponin I High Sensitivity 4 pg/mL 3.0-54.0 [facility] Work Phone: [phone] Comment on above: Please Note: New Daniella t Units and Gender Specific Reference Ranges. For more information see Policy Stat Procedure [facility] High Sensitivity Troponin (TNIH) and attachments. Platelets bldon 01-18-2022 Platelets (Bld) [#/Vol] 249 10*3/uL 150-450 [facility] Work Phone: [phone] Serum or plasma albumin paddy urement (mass/volume)on 01-18-2022 Albumin [Mass/Vol] 3.1 g/dL 3.2-5.0 [facility] Work Phone: [phone] Albumin [Mass/Vol] 3.4 g/dL 3.2-5.0 [facility] Work Phone: [phone] Serum or plasma albumin/glob ulin mass ratioon 01-18-2022 Albumin/Globulin [Mass ratio] 0.8 {ratio} 0.9-2.4 [facility] Work Phone: [phone] Albumin/Globulin [Mass ratio] 0.8 {ratio} 0.9-2.4 [facility] Work Phone: [phone] Serum or plasma calcium paddy urement (mass/volume)on 01-18-2022 Calcium [Mass/Vol] 8.8 mg/dL 8.5-10.1 [facility] Work Phone: [phone] Serum or plasma creatinine m easurement (mass/volume)on 01-18-2022 Creatinine [Mass/Vol] 0.87 mg/dL 0.55-1.02 [facility] Work Phone: [phone] Comment on above: The validity of the calculated GFR & GFRAA in patients over 70 years has not been determined. Clinical correlation is essential. Serum or plasma ferritin phil surement (mass/volume)on 01-18-2022 Ferritin [Mass/Vol] 7 ng/mL 8-252 [facility] Work Phone: [phone] Serum or plasma folate measu rement (mass/volume)on 01-18-2022 Folate [Mass/Vol] 12.30 ng/mL 3.1-55.4 [facility] Work Phone: [phone] Serum or plasma iron saturat ion measurement (mass fraction)on 01-18-2022 Iron saturation [Mass fraction] 4.1 % 15.0-55.0 [facility] Work Phone: [phone] Serum or plasma urea nitroge n measurement (mass/volume)on 01-18-2022 Urea nitrogen [Mass/Vol] 20 mg/dL 7-18 [facility] Work Phone: [phone] Thin prep Papanicolaou smear with manual screeningon 01-18-2022 Thin prep Papanicolaou smear with manual screening 51 U/L 15 [facility] Work Phone: [phone] Thin prep Papanicolaou smear with manual screening 57 U/L 1537 [facility] Work Phone: [phone] Thin prep Papanicolaou smear with manual screening 5 5-15 [facility] Work Phone: [phone] Absolute lymphocyte counton 01-15-2022 Lymphocytes Auto (Unsp spec) [#/Vol] 2.34 10*3/uL 0.83-4.51 [facility] Work Phone: Basophil percentageon 2021 Basophils/100 WBC (Bld) 0.6 % 0-1 [facility] Work Phone: Chloride [Moles/Vol] 111 mmol/L 98-107 [facility] Work Phone: Eosinophils/100 WBC (Bld) 1.8 % 0-5 [facility] Work Phone: Glucose [Mass/Vol] 89 mg/dL 74-106 [facility] Work Phone: Neutrophils (Bld) [#/Vol] 4.8 10*3/uL 2.0-7.7 [facility] Work Phone: Neutrophils/100 WBC (Bld) 61.3 % 47-70 [facility] Work Phone: Potassium [Moles/Vol] 4.6 mmol/L 3.5-5.1 [facility] Work Phone: Sodium [Moles/Vol] 138 mmol/L 136-145 [facility] Work Phone: WBC (Bld) [#/Vol] 7.8 10*3/uL 4.4-11.0 [facility] Work Phone: Blood erythrocytes count (nu mber/volume)on 01-15-2022 RBC (Bld) [#/Vol] 2.65 10*6/uL 4.2-5.4 [facility] Work Phone: Blood hemoglobin measurement (mass/volume)on 01-15-2022 Hemoglobin (Bld) [Mass/Vol] 7.3 g/dL 12.0-15.0 [facility] Work Phone: Blood lymphocytes/100 leukoc yteson 01-15-2022 Lymphocytes/100 WBC (Bld) 30.2 % 19-41 [facility] Work Phone: Blood monocytes/100 leukocyt eson 01-15-2022 Monocytes/100 WBC (Bld) 5.8 % 0-10 [facility] Work Phone: Blood platelet mean volumeon 01-15-2022 Platelet mean volume (Bld) [Entitic vol] 11.2 fL 6.2-12.0 [facility] Work Phone: Determination of erythrocyte mean corpuscular volume (MCV)on 01-15-2022 MCV (RBC) [Entitic vol] 94.0 fL 81-99 [facility] Work Phone: Hematocrit Auto (Bld) [Volum e fraction]on 01-15-2022 Hematocrit (Bld) [Volume fraction] 24.9 % 37-47 [facility] Work Phone: INR in Blood by Coagulation assayon 01-15-2022 INR Coag (Bld) [Relative time] 1.7 {INR} [facility] Work Phone: Laboratory - Chemistry and C hemistry - challengeon 01-15-2022 CO2 [Moles/Vol] 24.0 mmol/L 21.0-32.0 [facility] Work Phone: Urea nitrogen/Creatinine [Mass ratio] 30.1 mg/mg 10-20 [facility] Work Phone: Laboratory - Coagulationon 0 01-15-2022 aPTT Coag (Bld) [Time] 41.2 s 24.1-36.2 [facility] Work Phone: PT Coag (PPP) [Time] 19.6 s 11.7-14.9 [facility] Work Phone: Laboratory - Hematology and Cell countson 01-15-2022 Erythrocyte distribution width (RBC) [Entitic vol] 50.2 fL 35.1-43.9 [facility] Work Phone: Erythrocyte distribution width (RBC) [Ratio] 14.6 % 11.6-14.6 [facility] Work Phone: Immature granulocytes/100 WBC (Bld) 0.300 % 0.0-0.9 [facility] Work Phone: Comment on above: IG% - Immature Granu locytes (promyelocytes, myelocytes and metamyelocytes) > 1% indicates that a LEFT SHIFT is Present. MCH (RBC) [Entitic mass] 27.5 pg 27.0-32.0 [facility] Work Phone: Nucleated RBC/100 WBC (Bld) [Ratio] 0 % 0-5 [facility] Work Phone: MCHC Auto (RBC) [Mass/Vol]on 01-15-2022 MCHC (RBC) [Mass/Vol] 29.3 g/dL 32-36 [facility] Work Phone: No Panel Informationon 01-15 Estimated Creatinine Clearance Calc 47.81 ml/min [facility] Work Phone: Estimated GFR (MDRD) Amer 58 mL/min >60 [facility] Work Phone: Comment on above: GFR Calc Estimated GFR (MDRD) Non-Af Amer 48 mL/min >60 [facility] Work Phone: Comment on above: Non- GFR Calc Troponin I High Sensitivity < 3 pg/mL 3.0-54.0 [facility] Work Phone: Comment on above: Please Note: New Daniella t Units and Gender Specific Reference Ranges. For more information see Policy Stat Procedure [facility] High Sensitivity Troponin (TNIH) and attachments. Platelets bldon 01-15-2022 Platelets (Bld) [#/Vol] 272 10*3/uL 150-450 [facility] Work Phone: Serum or plasma calcium paddy urement (mass/volume)on 01-15-2022 Calcium [Mass/Vol] 8.7 mg/dL 8.5-10.1 [facility] Work Phone: [phone] Serum or plasma creatinine m easurement (mass/volume)on 01-15-2022 Creatinine [Mass/Vol] 1.23 mg/dL 0.55-1.02 [facility] Work Phone: Comment on above: The validity of the calculated GFR & GFRAA in patients over 70 years has not been determined. Clinical correlation is essential. 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 Message Text Last visit with [...] appointment with PCP (NAS BOOGIE) Normal [facility] Absolute lymphocyte counton 01-10-2022 Lymphocytes Auto (Unsp spec) [#/Vol] 2.32 10*3/uL 0.83-4.51 [facility] Work Phone: Basophil percentageon 2021 Basophils/100 WBC (Bld) 0.8 % 0-1 [facility] Work Phone: Chloride [Moles/Vol] 110 mmol/L 98-107 [facility] Work Phone: Eosinophils/100 WBC (Bld) 2.1 % 0-5 [facility] Work Phone: Glucose [Mass/Vol] 118 mg/dL 74-106 [facility] Work Phone: Comment on above: Fasting Glucose resu lt from 100 to 125 mg/dL suggests IMPAIRED HOMEOSTASIS per A.D.A. criteria. Neutrophils (Bld) [#/Vol] 4.2 10*3/uL 2.0-7.7 [facility] Work Phone: Neutrophils/100 WBC (Bld) 57.7 % 47-70 [facility] Work Phone: Potassium [Moles/Vol] 4.2 mmol/L 3.5-5.1 [facility] Work Phone: Sodium [Moles/Vol] 138 mmol/L 136-145 [facility] Work Phone: WBC (Bld) [#/Vol] 7.3 10*3/uL 4.4-11.0 [facility] Work Phone: Blood erythrocytes count (nu mber/volume)on 01-10-2022 RBC (Bld) [#/Vol] 3.14 10*6/uL 4.2-5.4 [facility]: Blood hemoglobin measurement (mass/volume)on 01-10-2022 Hemoglobin (Bld) [Mass/Vol] 8.6 g/dL 12.0-15.0 [facility] Work Phone: Blood lymphocytes/100 leukoc yteson 01-10-2022 Lymphocytes/100 WBC (Bld) 31.7 % 19-41 [facility] Work Phone: Blood monocytes/100 leukocyt eson 01-10-2022 Monocytes/100 WBC (Bld) 7.3 % 0-10 [facility] Work Phone: [phone] Blood platelet mean volumeon 01-10-2022 Platelet mean volume (Bld) [Entitic vol] 10.8 fL 6.2-12.0 [facility] Work Phone: Determination of erythrocyte mean corpuscular volume (MCV)on 01-10-2022 MCV (RBC) [Entitic vol] 90.1 fL 81-99 [facility] Work Phone: Hematocrit Auto (Bld) [Volum e fraction]on 01-10-2022 Hematocrit (Bld) [Volume fraction] 28.3 % 37-47 [facility] Work Phone: Laboratory - Chemistry and C hemistry - challengeon 01-10-2022 CO2 [Moles/Vol] 25.0 mmol/L 21.0-32.0 [facility] Work Phone: [phone] Urea nitrogen/Creatinine [Mass ratio] 27.4 mg/mg 10-20 [facility] Work Phone: [phone] Laboratory - Hematology and Cell countson 01-10-2022 Erythrocyte distribution width (RBC) [Entitic vol] 47.4 fL 35.1-43.9 [facility] Work Phone: [phone] Erythrocyte distribution width (RBC) [Ratio] 14.5 % 11.6-14.6 [facility] Work Phone: [phone] Immature granulocytes/100 WBC (Bld) 0.400 % 0.0-0.9 [facility] Work Phone: [phone] Comment on above: IG% - Immature Granu locytes (promyelocytes, myelocytes and metamyelocytes) > 1% indicates that a LEFT SHIFT is Present. MCH (RBC) [Entitic mass] 27.4 pg 27.0-32.0 [facility] Work Phone: [phone] Nucleated RBC/100 WBC (Bld) [Ratio] 0 % 0-5 [facility] Work Phone: [phone] MCHC Auto (RBC) [Mass/Vol]on 01-10-2022 MCHC (RBC) [Mass/Vol] 30.4 g/dL 32-36 [facility] Work Phone: [phone] No Panel Informationon 01-10 Estimated Creatinine Clearance Calc 55.48 ml/min [facility] Work Phone: [phone] Estimated GFR (MDRD) Amer 69 mL/min >60 [facility] Work Phone: [phone] Comment on above: GFR Calc Estimated GFR (MDRD) Non-Af Amer 57 mL/min >60 [facility] Work Phone: [phone] Comment on above: Non- GFR Calc Platelets bldon 01-10-2022 Platelets (Bld) [#/Vol] 275 10*3/uL 150-450 [facility] Work Phone: Serum or plasma calcium paddy urement (mass/volume)on 01-10-2022 Calcium [Mass/Vol] 8.9 mg/dL 8.5-10.1 [facility] Work Phone: Serum or plasma creatinine m easurement (mass/volume)on 01-10-2022 Creatinine [Mass/Vol] 1.06 mg/dL 0.55-1.02 [facility] Work Phone: Comment on above: The validity of the calculated GFR & GFRAA in patients over 70 years has not been determined. Clinical correlation is essential. 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 Interface Message Text Last visit with [...] No prior visit found with PCP (NAS OBOGIE) No future appointment with PCP (NAS BOOGIE) Normal [employer] Absolute lymphocyte counton 12-14-2021 Lymphocytes Auto (Unsp spec) [#/Vol] 2.31 10*3/uL 0.83-4.51 [facility] Work Phone: Basophil percentageon 2021 Basophil percentage 25-50 SEEN /hpf 0-5 [facility] Work Phone: Basophils/100 WBC (Bld) 0.4 % 0-1 [facility] Work Phone: Chloride [Moles/Vol] 107 mmol/L 98-107 [facility] Work [facility]: Eosinophils/100 WBC (Bld) 1.8 % 0-5 [facility] Work Phone: Glucose [Mass/Vol] 92 mg/dL 74-106 [facility] Work Phone: Neutrophils (Bld) [#/Vol] 8.2 10*3/uL 2.0-7.7 [facility] Work Phone: Neutrophils/100 WBC (Bld) 72.1 % 47-70 [facility] Work Phone: [phone] Potassium [Moles/Vol] 4.3 mmol/L 3.5-5.1 [facility] Work Phone: Comment on above: Slight Hemolysis, Re sult may be falsely increased. Sodium [Moles/Vol] 138 mmol/L 136-145 [facility] Work Phone: WBC (Bld) [#/Vol] 11.4 10*3/uL 4.4-11.0 [facility] Work Phone: [phone] Bilirubin Test strip Ql (U)o n 12-14-2021 Bilirubin Ql (U) Negative Negative [facility] Work Phone: Blood erythrocytes count (nu mber/volume)on 12-14-2021 RBC (Bld) [#/Vol] 2.99 10*6/uL 4.2-5.4 [facility] Work Phone: Blood hemoglobin measurement (mass/volume)on 12-14-2021 Hemoglobin (Bld) [Mass/Vol] 8.5 g/dL 12.0-15.0 [facility] Work Phone: Blood lymphocytes/100 leukoc yteson 12-14-2021 Lymphocytes/100 WBC (Bld) 20.3 % 19-41 [facility] Work Phone: Blood monocytes/100 leukocyt eson 12-14-2021 Monocytes/100 WBC (Bld) 5.0 % 0-10 [facility] Work Phone: [phone] Blood platelet mean volumeon 12-14-2021 Platelet mean volume (Bld) [Entitic vol] 10.6 fL 6.2-12.0 [facility] Work Phone: [phone] Determination of erythrocyte mean corpuscular volume (MCV)on 12-14-2021 MCV (RBC) [Entitic vol] 94.6 fL 81-99 [facility] Work Phone: [phone] Hematocrit Auto (Bld) [Volum e fraction]on 12-14-2021 Hematocrit (Bld) [Volume fraction] 28.3 % 37-47 [facility] Work Phone: [phone] Ketones Test strip Ql (U)on 12-14-2021 Ketones Ql (U) Negative Negative [facility] Work Phone: [phone] Laboratory - Chemistry and C hemistry - challengeon 12-14-2021 CO2 [Moles/Vol] 29.0 mmol/L 21.0-32.0 [facility] Work Phone: [phone] Urea nitrogen/Creatinine [Mass ratio] 20.5 mg/mg 10-20 [facility] Work Phone: [phone] Laboratory - Hematology and Cell countson 12-14-2021 Erythrocyte distribution width (RBC) [Entitic vol] 47.5 fL 35.1-43.9 [facility] Work Phone: [phone] Erythrocyte distribution width (RBC) [Ratio] 13.9 % 11.6-14.6 [facility] Work Phone: [phone] Immature granulocytes/100 WBC (Bld) 0.400 % 0.0-0.9 [facility] Work Phone: [phone] Comment on above: IG% - Immature Granu locytes (promyelocytes, myelocytes and metamyelocytes) > 1% indicates that a LEFT SHIFT is Present. MCH (RBC) [Entitic mass] 28.4 pg 27.0-32.0 [facility] Work Phone: [phone] Nucleated RBC/100 WBC (Bld) [Ratio] 0 % 0-5 [facility] Work Phone: MCHC Auto (RBC) [Mass/Vol]on 12-14-2021 MCHC (RBC) [Mass/Vol] 30.0 g/dL 32-36 [facility] Work Phone: Mucus LM Ql (Urine sed)on Mucus Ql (Urine sed) 0 SEEN /hpf [facility] Work Phone: [phone] Nitrite Test strip Ql (U)on 12-14-2021 Nitrite Ql (U) Negative Negative [facility] Work Phone: No Panel Informationon 12-14 Estimated Creatinine Clearance Calc 50.47 ml/min [facility] Work Phone: Estimated GFR (MDRD) Amer 65 mL/min >60 [facility] Work Phone: Comment on above: GFR Calc Estimated GFR (MDRD) Non-Af Amer 54 mL/min >60 [facility] Work Phone: Comment on above: Non- GFR Calc Platelets bldon 12-14-2021 Platelets (Bld) [#/Vol] 341 10*3/uL 150-450 [facility] Work Phone: Protein Test strip Ql (U)on 12-14-2021 Protein Ql (U) Negative Negative [facility] Work Phone: [phone] Serum or plasma calcium paddy urement (mass/volume)on 12-14-2021 Calcium [Mass/Vol] 9.3 mg/dL 8.5-10.1 [facility] Work Phone: [phone] Serum or plasma creatinine m easurement (mass/volume)on 12-14-2021 Creatinine [Mass/Vol] 1.12 mg/dL 0.55-1.02 [facility] Work Phone: [phone] Comment on above: The validity of the calculated GFR & GFRAA in patients over 70 years has not been determined. Clinical correlation is essential. Serum or plasma urea nitroge n measurement (mass/volume)on 12-14-2021 Urea nitrogen [Mass/Vol] 23 mg/dL 7-18 [facility] Work Phone: [phone] Squamous epithelial cells de tection in urine sediment by light microscopyon 12-14-2021 Epithelial cells.squamous LM Ql (Urine sed) 5-10 SEEN /hpf 5-10 [facility] Work Phone: Thin prep Papanicolaou smear with manual screeningon 12-14-2021 Thin prep Papanicolaou smear with manual screening 2 5-15 [facility] Work Phone: Urine blood detectionon 11-21 RBC Ql (U) 10 /ul Negative [facility] Work Phone: [phone] RBC Ql (U) 0 SEEN /hpf 0-5 [facility] Work Phone: Urine clarityon 12-14-2021 Clarity (U) Sl. Cloudy Clear [facility] Work Phone: Urine color determinationon 12-14-2021 Color (U) Straw Yellow [facility] Work Phone: Urine glucose detectionon Glucose Ql (U) Normal mg/dl Normal [facility] Work Phone: Urine leukocyte esterase det ection by dipstickon 12-14-2021 Leukocyte esterase Test strip Ql (U) 500 /ul Negative [facility] Work Phone: Urine pHon 12-14-2021 pH (U) 6.0 [pH] 5.0 - 8.0 [facility] Work Phone: Urine sediment bacteria coun t by microscopy (number/high power field)on 12-14-2021 Bacteria LM.HPF (Urine sed) [#/Area] 1 /[HPF] None Seen [facility] Work Phone: Urine sediment renal epithel ial cell count by microscopy (number/high power field)on 12-14-2021 Epithelial cells.renal LM.HPF (Urine sed) [#/Area] 0 /[HPF] 0-5 [facility] Work Phone: Urine specific gravity measu rementon 12-14-2021 Specific gravity (U) [Rel density] 1.010 1.002-1.03 0 [facility] Work Phone: [phone] Urobilinogen Auto test strip Ql (U)on 12-14-2021 Urobilinogen Ql (U) Normal mg/dl Normal [facility] Work Phone: [phone] Albumin Elph [Mass/Vol]on Albumin [Mass/Vol] Not Reportable [facility] Work Phone: [phone] Interpretation of serum or p lasma protein pattern by immunofixation (narrative resulton 12-12-2021 Protein Fractions Immunofixation James [Interp] Not Reportable [facility] Work Phone: [phone] Laboratory - Chemistry and C hemistry - challengeon 12-12-2021 Cobalamin (Vitamin B12) [Mass/Vol] 436 pg/mL 211-911 [facility] Work Phone: [phone] Serum dhyev-7-nyzryybi measu rement by electrophoresison 12-12-2021 Alpha 1 globulin Elph [Mass/Vol] Not Reportable [facility] Work Phone: [phone] Serum or plasma IgA measurem ent (mass/volume)on 12-12-2021 IgA [Mass/Vol] Not Reportable [facility] Work Phone: [phone] Serum or plasma IgG measurem ent (mass/volume)on 12-12-2021 IgG [Mass/Vol] Not Reportable [facility] Work Phone: [phone] Serum or plasma IgM measurem ent (mass/volume)on 12-12-2021 IgM [Mass/Vol] Not Reportable [facility] Work Phone: [phone] Serum or plasma beta globuli n measurement by electrophoresis (mass/volume)on 12-12-2021 Beta globulin Elph [Mass/Vol] Not Reportable [facility] Work Phone: [phone] Serum or plasma gamma globul in measurement by electrophoresis (mass/volume)on 12-12-2021 Gamma globulin Elph [Mass/Vol] Not Reportable [facility] Work Phone: Thin prep Papanicolaou smear with manual screeningon 12-12-2021 Thin prep Papanicolaou smear with manual screening Not Reportable [facility] Work Phone: Total protein bloodon 2021 Protein [Mass/Vol] See comment [facility] Work Phone: Comment on above: TEST RESULT LIMITSIF E and PE, SerumImmunoglobulin G, Qn, Serum 974 mg/dL [phone] A, Qn, Serum 357 High mg/dL 87-352Immunoglobulin M, Qn, Serum 175 mg/dL 26-217Protein, Total 6.9 g/dL 6.0-8.5Albumin 3.4 g/dL 2.9-4.1Cdecy-4-Xstcsdtx 0.3 g/dL 0.0-0.3Ngxwp-8-Vdljgcik 1.0 g/dL 0.4-1.0Beta Globulin 1.1 g/dL 0.7-1.3Gamma Globulin 1.0 g/dL 0.4-1.8M-Darwin Not Observed g/dL Not ObservedGlobulin, Total 3.5 g/dL 2.2-3.9A/G Ratio 1.0 0.7-1.7Immunofixation Result, Serum No monoclonality detected.Please note: Protein electrophoresis scan will follow via computer, mail, or automatic beam warper tender delivery. __ TESTING PERFORMED AT [facility]. ORIGINAL REPORT ON FILE IN LAB CONTAINS ADDITIONAL TEST SITE INFORMATION. 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 Normal [employer] Absolute lymphocyte counton 04-14-2022 Lymphocytes Auto (Unsp spec) [#/Vol] 1.84 10*3/uL 0.83-4.51 [facility] Work Phone: Basophil percentageon 2021 Basophil percentage 25-50 SEEN /hpf 0-5 [facility] Work Phone: Basophils/100 WBC (Bld) 0.4 % 0-1 [facility] Work Phone: Chloride [Moles/Vol] 108 mmol/L 98-107 [facility] Work Phone: Eosinophils/100 WBC (Bld) 1.4 % 0-5 [facility] Work Phone: Glucose [Mass/Vol] 104 mg/dL 74-106 [facility] Work Phone: Comment on above: Fasting Glucose resu lt from 100 to 125 mg/dL suggests IMPAIRED HOMEOSTASIS per A.D.A. criteria. Neutrophils (Bld) [#/Vol] 5.4 10*3/uL 2.0-7.7 [facility] Work Phone: Neutrophils/100 WBC (Bld) 67.5 % 47-70 [facility] Work Phone: Potassium [Moles/Vol] 3.8 mmol/L 3.5-5.1 [facility] Work Phone: Sodium [Moles/Vol] 140 mmol/L 136-145 [facility] Work Phone: WBC (Bld) [#/Vol] 8.1 10*3/uL 4.4-11.0 [facility] Work Phone: Bilirubin Test strip Ql (U)o n 11-03-2021 Bilirubin Ql (U) Negative Negative [facility] Work Phone: Blood erythrocytes count (nu mber/volume)on 11-03-2021 RBC (Bld) [#/Vol] 3.22 10*6/uL 4.2-5.4 [facility] Work Phone: Blood hemoglobin measurement (mass/volume)on 11-03-2021 Hemoglobin (Bld) [Mass/Vol] 9.7 g/dL 12.0-15.0 [facility] Work Phone: Blood lymphocytes/100 leukoc yteson 11-03-2021 Lymphocytes/100 WBC (Bld) 22.8 % 19-41 [facility] Work Phone: [phone] Blood monocytes/100 leukocyt eson 11-03-2021 Monocytes/100 WBC (Bld) 7.7 % 0-10 [facility] Work Phone: [phone] Blood platelet mean volumeon 11-03-2021 Platelet mean volume (Bld) [Entitic vol] 10.9 fL 6.2-12.0 [facility] Work Phone: [phone] Culture, urineon 11-03-2021 Bacteria identified Cx Nom (U) Escherichia coli [facility] Work Phone: [phone] Determination of erythrocyte mean corpuscular volume (MCV)on 11-03-2021 MCV (RBC) [Entitic vol] 93.2 fL 81-99 [facility] Work Phone: Hematocrit Auto (Bld) [Volum e fraction]on 11-03-2021 Hematocrit (Bld) [Volume fraction] 30.0 % 37-47 [facility] Work Phone: Ketones Test strip Ql (U)on 11-03-2021 Ketones Ql (U) 5 mg/dl Negative [facility] Work Phone: Laboratory - Chemistry and C hemistry - challengeon 11-03-2021 CK [Catalytic activity/Vol] 59 U/L 26-192 [facility] Work Phone: [phone] CO2 [Moles/Vol] 27.0 mmol/L 21.0-32.0 [facility] Work Phone: [phone] Urea nitrogen/Creatinine [Mass ratio] 17.7 mg/mg 10-20 [facility] Work Phone: [phone] Laboratory - Hematology and Cell countson 11-03-2021 Erythrocyte distribution width (RBC) [Entitic vol] 45.4 fL 35.1-43.9 [facility] Work Phone: [phone] Erythrocyte distribution width (RBC) [Ratio] 13.2 % 11.6-14.6 [facility] Work Phone: [phone] Immature granulocytes/100 WBC (Bld) 0.200 % 0.0-0.9 [facility] Work Phone: [phone] Comment on above: IG% - Immature Granu locytes (promyelocytes, myelocytes and metamyelocytes) > 1% indicates that a LEFT SHIFT is Present. MCH (RBC) [Entitic mass] 30.1 pg 27.0-32.0 [facility] Work Phone: Nucleated RBC/100 WBC (Bld) [Ratio] 0 % 0-5 [facility] Work Phone: [phone] MCHC Auto (RBC) [Mass/Vol]on 11-03-2021 MCHC (RBC) [Mass/Vol] 32.3 g/dL 32-36 [facility] Work Phone: Mucus LM Ql (Urine sed)on Mucus Ql (Urine sed) RARE /hpf [facility] Work Phone: [phone] Nitrite Test strip Ql (U)on 11-03-2021 Nitrite Ql (U) Positive Negative [facility] Work Phone: No Panel Informationon 11-03 Estimated Creatinine Clearance Calc 74.44 ml/min [facility] Work Phone: [phone] Estimated GFR (MDRD) Amer 97 mL/min >60 [facility] Work Phone: [phone] Comment on above: GFR Calc Estimated GFR (MDRD) Non-Af Amer 80 mL/min >60 [facility] Work Phone: [phone] Comment on above: Non- GFR Calc Troponin I High Sensitivity < 3 pg/mL 3.0-54.0 [facility] Work Phone: Comment on above: Please Note: New Daniella t Units and Gender Specific Reference Ranges. For more information see Policy Stat Procedure [facility] High Sensitivity Troponin (TNIH) and attachments. Platelets bldon 11-03-2021 Platelets (Bld) [#/Vol] 255 10*3/uL 150-450 [facility] Work Phone: Protein Test strip Ql (U)on 11-03-2021 Protein Ql (U) 15 mg/dl Negative [facility] Work Phone: Serum or plasma calcium paddy urement (mass/volume)on 11-03-2021 Calcium [Mass/Vol] 9.4 mg/dL 8.5-10.1 [facility] Work Phone: [phone] Serum or plasma creatinine m easurement (mass/volume)on 11-03-2021 Creatinine [Mass/Vol] 0.79 mg/dL 0.55-1.02 [facility] Work Phone: Comment on above: The validity of the calculated GFR & GFRAA in patients over 70 years has not been determined. Clinical correlation is essential. Serum or plasma urea nitroge n measurement (mass/volume)on 11-03-2021 Urea nitrogen [Mass/Vol] 14 mg/dL 7-18 [facility] Work Phone: Squamous epithelial cells de tection in urine sediment by light microscopyon 11-03-2021 Epithelial cells.squamous LM Ql (Urine sed) 0 SEEN /hpf 5-10 [facility] Work Phone: Thin prep Papanicolaou smear with manual screeningon 11-03-2021 Thin prep Papanicolaou smear with manual screening 5 5-15 [facility] Work Phone: Urine blood detectionon 10-21 RBC Ql (U) 25 /ul Negative [facility] Work Phone: [phone] RBC Ql (U) 0 SEEN /hpf 0-5 [facility] Work Phone: [phone] Urine clarityon 11-03-2021 Clarity (U) Cloudy Clear [facility] Work Phone: Urine color determinationon 11-03-2021 Color (U) Yellow Yellow [facility] Work Phone: [phone] Urine glucose detectionon Glucose Ql (U) Normal mg/dl Normal [facility] Work Phone: Urine leukocyte esterase det ection by dipstickon 11-03-2021 Leukocyte esterase Test strip Ql (U) 100 /ul Negative [facility] Work Phone: Urine pHon 11-03-2021 pH (U) 5.0 [pH] 5.0 - 8.0 [facility] Work Phone: Urine sediment bacteria coun t by microscopy (number/high power field)on 11-03-2021 Bacteria LM.HPF (Urine sed) [#/Area] 4 /[HPF] None Seen [facility] Work Phone: Urine specific gravity measu rementon 11-03-2021 Specific gravity (U) [Rel density] 1.020 1.002-1.03 0 [facility] Work Phone: Urobilinogen Auto test strip Ql (U)on 11-03-2021 Urobilinogen Ql (U) Normal mg/dl Normal [facility] Work Phone: Progress Noteson 11-02-2021 [employer] D[employer] Repairer Authentication Interface Message Text This visit has been rescheduled as a phone visit to comply with patient safety concerns in accordance with CDC recommendations. Telephone Encounter This visit was performed via interactive telehealth. This visit was initiated by the patient / provider and the patient and provider interacted in real time. Location of the patient: Home of patient Location of the provider: [facility] Main Reviewed informed consent with patient: [...] dialogue with therapist: Yes Suicide Screener: C-SSRS [place]-Suicide Severity Rating Scale Able to complete [place]-Suicide Severity Rating Scale with Patient?: Yes 1) [...] a (more content not included)... Normal [facility] Basophil percentageon 2021 Ammonia (P) [Moles/Vol] 18.0 umol/L 11-32 [facility] Work Phone: Bilirubin [Mass/Vol] 0.20 mg/dL 0.20-1.00 [facility] Work Phone: Comment on above: For patients on eltr ombopag therapy, use of Dimension [place] TBIL is not recommended. Chloride [Moles/Vol] 107 mmol/L 98-107 [facility] Work Phone: Glucose [Mass/Vol] 113 mg/dL 74-106 [facility] Work Phone: Comment on above: Fasting Glucose resu lt from 100 to 125 mg/dL suggests IMPAIRED HOMEOSTASIS per A.D.A. criteria. Potassium [Moles/Vol] 4.1 mmol/L 3.5-5.1 [facility] Work Phone: Protein [Mass/Vol] 7.8 g/dL 6.4-8.2 [facility] Work Phone: [phone] Sodium [Moles/Vol] 136 mmol/L 136-145 [facility] Work Phone: [phone] WBC (Bld) [#/Vol] 5.5 10*3/uL 4.4-11.0 [facility] Work Phone: Blood erythrocytes count (nu mber/volume)on 10-26-2021 RBC (Bld) [#/Vol] 3.21 10*6/uL 4.2-5.4 [facility] Work Phone: Blood hemoglobin measurement (mass/volume)on 10-26-2021 Hemoglobin (Bld) [Mass/Vol] 9.5 g/dL 12.0-15.0 [facility] Work Phone: Blood platelet mean volumeon 10-26-2021 Platelet mean volume (Bld) [Entitic vol] 10.8 fL 6.2-12.0 [facility] Work Phone: CT UROGRAM WO/W IVCONon - [facility] Determination of erythrocyte mean corpuscular volume (MCV)on 10-26-2021 MCV (RBC) [Entitic vol] 97.2 fL 81-99 [facility] Work Phone: Hematocrit Auto (Bld) [Volum e fraction]on 10-26-2021 Hematocrit (Bld) [Volume fraction] 31.2 % 37-47 [facility] Work Phone: Iron measurement (mass/mass) on 10-26-2021 Iron (Unsp spec) [Mass/Mass] 61 ug/dL 50-170 [facility] Work Phone: [phone] Laboratory - Chemistry and C hemistry - challengeon 10-26-2021 ALP [Catalytic activity/Vol] 75 U/L 45-117 [facility] Work Phone: [phone] ALT [Catalytic activity/Vol] 28 U/L 13-56 [facility] Work Phone: [phone] CO2 [Moles/Vol] 27.0 mmol/L 21.0-32.0 [facility] Work Phone: [phone] Globulin (S) [Mass/Vol] 3.9 g/dL 2.2-4.2 [facility] Work Phone: [phone] Urea nitrogen/Creatinine [Mass ratio] 26.4 mg/mg 10-20 [facility] Work Phone: [phone] Laboratory - Hematology and Cell countson 10-26-2021 Erythrocyte distribution width (RBC) [Entitic vol] 48.5 fL 35.1-43.9 [facility] Work Phone: [phone] Erythrocyte distribution width (RBC) [Ratio] 13.5 % 11.6-14.6 [facility] Work Phone: [phone] MCH (RBC) [Entitic mass] 29.6 pg 27.0-32.0 [facility] Work Phone: [phone] MCHC Auto (RBC) [Mass/Vol]on 10-26-2021 MCHC (RBC) [Mass/Vol] 30.4 g/dL 32-36 [facility] Work Phone: [phone] Panel Informationon 10-26 Estimated GFR (MDRD) Amer 91 mL/min >60 [facility] Work Phone: [phone] Comment on above: GFR Calc Estimated GFR (MDRD) Non-Af Amer 75 mL/min >60 [facility] Work Phone: [phone] Comment on above: Non- GFR Calc Free Lambda Light Chains, Quant 16.5 mg/L 5.7-26.3 [facility] Work Phone: [phone] Levetiracetam (Keppra) Level 14.9 ug/mL 10.0-40.0 [facility] Work Phone: [phone] Comment on above: Performed at: - L [address] [id number] Director: Eliseo Yañez PhD, Phone: [phone] at: BN - [facility] [address] [id number] Director: Azalia Rosen MD, Phone: [phone] Thyroid Stimulating Hormone (TSH) 1.22 uIU/mL 0.358-3.74 [facility] Work Phone: [phone] Whole Blood Vitamin B1 Level 131.9 nmol/L 66.5-200.0 [facility] Work Phone: [phone] Platelets bldon 10-26-2021 Platelets (Bld) [#/Vol] 272 10*3/uL 150-450 [facility] Work Phone: [phone] Serum immunoglobulin kappa l ight chains/immunoglobulin lambda light chains mass ratioon 10-26-2021 Immunoglobulin light chains.kappa/Immunogl obulin light chains.lambda (S) [Mass ratio] 1.55 0.26-1.65 [facility] Work Phone: [phone] Serum or plasma albumin paddy urement (mass/volume)on 10-26-2021 Albumin [Mass/Vol] 3.9 g/dL 3.2-5.0 [facility] Work Phone: [phone] Serum or plasma albumin/glob ulin mass ratioon 10-26-2021 Albumin/Globulin [Mass ratio] 1.0 {ratio} 0.9-2.4 [facility] Work Phone: [phone] Serum or plasma calcium paddy urement (mass/volume)on 10-26-2021 Calcium [Mass/Vol] 9.3 mg/dL 8.5-10.1 [facility] Work Phone: [phone] Serum or plasma creatinine m easurement (mass/volume)on 10-26-2021 Creatinine [Mass/Vol] 0.83 mg/dL 0.55-1.02 [facility] Work Phone: Comment on above: The validity of the calculated GFR & GFRAA in patients over 70 years has not been determined. Clinical correlation is essential. Serum or plasma ferritin phil surement (mass/volume)on 10-26-2021 Ferritin [Mass/Vol] 47 ng/mL 8-252 [facility] Work Phone: Serum or plasma folate measu rement (mass/volume)on 10-26-2021 Folate [Mass/Vol] 8.90 ng/mL 3.1-55.4 [facility] Work Phone: Serum or plasma immunoglobul in kappa light chains measurement (mass/volume)on 10-26-2021 Immunoglobulin light chains.kappa [Mass/Vol] 25.5 mg/L 3.3-19.4 [facility] Work Phone: Serum or plasma urea nitroge n measurement (mass/volume)on 10-26-2021 Urea nitrogen [Mass/Vol] 22 mg/dL 7-18 [facility] Work Phone: Thin prep Papanicolaou smear with manual screeningon 10-26-2021 Thin prep Papanicolaou smear with manual screening 18 U/L 15-37 [facility] Work Phone: Thin prep Papanicolaou smear with manual screening 2 5-15 [facility] Work Phone: CNPNon 10-18-2021 [facility] FELISHA PERRIN ([id number]) 1965 F Date Time Provider Department 10/18/21 RONAL PEREYRA JR During your visit today, we recorded the following information about you: Yari Crockett 10/18/2021 2:16 PM Signed Left pt scheduled with Dr. Pereyra in [facility] 11/02/21 @ 2:[address] prior 10/19/21. [...] 1 tablet by mouth twice daily. Per [facility]. - Mirtazapine (REMERON) 7.5 mg tablet Take 1 tablet by mouth daily at bedtime. Per [facility]. - acetaminophen (TYLENOL EXTRA STRENGTH) 500 mg tablet Take 1,000 mg by mouth every 8 hours as needed. - venlafaxine ER (EFFEXOR XR) 75 mg 24 hr capsule Take 75 mg by mouth once daily. Plus 37.5 [facility] capsule. [facility] - venlafaxine ER (EFFEXOR XR) 37.5 mg 24 hr capsule Take 37.5 mg by mouth once daily. Plus 75 mg capsule. [facility]. 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 Normal [facility] Absolute lymphocyte counton 10-10-2021 Lymphocytes Auto (Unsp spec) [#/Vol] 1.75 10*3/uL 0.83-4.51 [facility] Work Phone: Basophil percentageon 2021 Basophils/100 WBC (Bld) 0.6 % 0-1 [facility] Work Phone: Eosinophils/100 WBC (Bld) 1.5 % 0-5 [facility] Work Phone: Neutrophils (Bld) [#/Vol] 4.3 10*3/uL 2.0-7.7 [facility] Work Phone: Neutrophils/100 WBC (Bld) 64.2 % 47-70 [facility] Work Phone: WBC (Bld) [#/Vol] 6.6 10*3/uL 4.4-11.0 [facility] Work Phone: Blood erythrocytes count (nu mber/volume)on 10-10-2021 RBC (Bld) [#/Vol] 2.97 10*6/uL 4.2-5.4 [facility] Work Phone: Blood hemoglobin measurement (mass/volume)on 10-10-2021 Hemoglobin (Bld) [Mass/Vol] 9.1 g/dL 12.0-15.0 [facility] Work Phone: Blood lymphocytes/100 leukoc yteson 10-10-2021 Lymphocytes/100 WBC (Bld) 26.4 % 19-41 [facility] Work Phone: Blood monocytes/100 leukocyt eson 10-10-2021 Monocytes/100 WBC (Bld) 6.8 % 0-10 [facility] Work Phone: Blood platelet mean volumeon 10-10-2021 Platelet mean volume (Bld) [Entitic vol] 11.5 fL 6.2-12.0 [facility] Work Phone: Determination of erythrocyte mean corpuscular volume (MCV)on 10-10-2021 MCV (RBC) [Entitic vol] 95.3 fL 81-99 [facility] Work Phone: Hematocrit Auto (Bld) [Volum e fraction]on 10-10-2021 Hematocrit (Bld) [Volume fraction] 28.3 % 37-47 [facility] Work Phone: Hemoglobin in reticulocytes (mass per reticulocyte)on 10-10-2021 Hemoglobin (Reticulocytes) [Entitic mass] 32.1 pg 30-35 [facility] Work Phone: INR in Blood by Coagulation assayon 10-10-2021 INR Coag (Bld) [Relative time] 1.1 {INR} [facility] Work Phone: [phone] Iron measurement (mass/mass) on 10-10-2021 Iron (Unsp spec) [Mass/Mass] 33 ug/dL 50-170 [facility] Work Phone: [phone] Laboratory - Chemistry and C hemistry - challengeon 10-10-2021 Transferrin [Mass/Vol] 255 mg/dL 192-364 [facility] Work Phone: [phone] Comment on above: Performed at: [address] [id number] Director: Eliseo Yañez PhD, Phone: [phone] Laboratory - Coagulationon 0 10-10-2021 PT Coag (PPP) [Time] 13.3 s 11.7-14.9 [facility] Work Phone: [phone] Laboratory - Hematology and Cell countson 10-10-2021 Erythrocyte distribution width (RBC) [Entitic vol] 48.3 fL 35.1-43.9 [facility] Work Phone: [phone] Erythrocyte distribution width (RBC) [Ratio] 14.0 % 11.6-14.6 [facility] Work Phone: [phone] Immature granulocytes/100 WBC (Bld) 0.500 % 0.0-0.9 [facility] Work Phone: [phone] Comment on above: IG% - Immature Granu locytes (promyelocytes, myelocytes and metamyelocytes) > 1% indicates that a LEFT SHIFT is Present. MCH (RBC) [Entitic mass] 30.6 pg 27.0-32.0 [facility] Work Phone: [phone] Nucleated RBC/100 WBC (Bld) [Ratio] 0 % 0-5 [facility] Work Phone: [phone] MCHC Auto (RBC) [Mass/Vol]on 10-10-2021 MCHC (RBC) [Mass/Vol] 32.2 g/dL 32-36 [facility] Work Phone: [phone] Panel Informationon 10-10 Immature Reticulocyte Fraction 26.40 % 3.00-15.90 [facility] Work Phone: [phone] Reticulocyte Count 2.00 % 0.5-1.5 [facility] Work Phone: Total Iron Binding Capacity 343 ug/dL 250-450 [facility] Work Phone: Platelets bldon 10-10-2021 Platelets (Bld) [#/Vol] 208 10*3/uL 150-450 [facility] Work Phone: Serum or plasma ferritin phil surement (mass/volume)on 10-10-2021 Ferritin [Mass/Vol] 29 ng/mL 8-252 [facility] Work Phone: Serum or plasma iron saturat ion measurement (mass fraction)on 10-10-2021 Iron saturation [Mass fraction] 9.6 % 15.0-55.0 [facility] Work Phone: Absolute lymphocyte counton 09-22-2021 Lymphocytes Auto (Unsp spec) [#/Vol] 2.43 10*3/uL 0.83-4.51 [facility] Work Phone: Basophil percentageon 2021 Basophil percentage 0 SEEN /hpf 0-5 [facility] Work Phone: Basophils/100 WBC (Bld) 0.8 % 0-1 [facility] Work Phone: Chloride [Moles/Vol] 107 mmol/L 98-107 [facility] Work Phone: Eosinophils/100 WBC (Bld) 5.3 % 0-5 [facility] Work Phone: Glucose [Mass/Vol] 109 mg/dL 74-106 [facility] Work Phone: Comment on above: Fasting Glucose resu lt from 100 to 125 mg/dL suggests IMPAIRED HOMEOSTASIS per A.D.A. criteria. Neutrophils (Bld) [#/Vol] 3.8 10*3/uL 2.0-7.7 [facility] Work Phone: Neutrophils/100 WBC (Bld) 52.2 % 47-70 [facility] Work Phone: Potassium [Moles/Vol] 4.1 mmol/L 3.5-5.1 [facility] Work Phone: Sodium [Moles/Vol] 138 mmol/L 136-145 [facility] Work Phone: WBC (Bld) [#/Vol] 7.2 10*3/uL 4.4-11.0 [facility] Work Phone: Bilirubin Test strip Ql (U)o n 09-22-2021 Bilirubin Ql (U) Negative Negative [facility] Work Phone: Blood erythrocytes count (nu mber/volume)on 09-22-2021 RBC (Bld) [#/Vol] 3.25 10*6/uL 4.2-5.4 [facility] Work Phone: Blood hemoglobin measurement (mass/volume)on 09-22-2021 Hemoglobin (Bld) [Mass/Vol] 10.0 g/dL 12.0-15.0 [facility] Work Phone: Blood lymphocytes/100 leukoc yteson 09-22-2021 Lymphocytes/100 WBC (Bld) 33.8 % 19-41 [facility] Work Phone: Blood monocytes/100 leukocyt eson 09-22-2021 Monocytes/100 WBC (Bld) 7.6 % 0-10 [facility] Work Phone: Blood platelet mean volumeon 09-22-2021 Platelet mean volume (Bld) [Entitic vol] 11.2 fL 6.2-12.0 [facility] Work Phone: Determination of erythrocyte mean corpuscular volume (MCV)on 09-22-2021 MCV (RBC) [Entitic vol] 94.2 fL 81-99 [facility] Work Phone: Hematocrit Auto (Bld) [Volum e fraction]on 09-22-2021 Hematocrit (Bld) [Volume fraction] 30.6 % 37-47 [facility] Work Phone: Ketones Test strip Ql (U)on 09-22-2021 Ketones Ql (U) Negative Negative [facility] Work Phone: Laboratory - Chemistry and C hemistry - challengeon 09-22-2021 CO2 [Moles/Vol] 28.0 mmol/L 21.0-32.0 [facility] Work Phone: [phone] Urea nitrogen/Creatinine [Mass ratio] 17.2 mg/mg 10-20 [facility] Work Phone: [phone] Laboratory - Hematology and Cell countson 09-22-2021 Erythrocyte distribution width (RBC) [Entitic vol] 48.5 fL 35.1-43.9 [facility] Work Phone: [phone] Erythrocyte distribution width (RBC) [Ratio] 14.2 % 11.6-14.6 [facility] Work Phone: [phone] Immature granulocytes/100 WBC (Bld) 0.300 % 0.0-0.9 [facility] Work Phone: [phone] Comment on above: IG% - Immature Granu locytes (promyelocytes, myelocytes and metamyelocytes) > 1% indicates that a LEFT SHIFT is Present. MCH (RBC) [Entitic mass] 30.8 pg 27.0-32.0 [facility] Work Phone: [phone] Nucleated RBC/100 WBC (Bld) [Ratio] 0 % 0-5 [facility] Work Phone: [phone] MCHC Auto (RBC) [Mass/Vol]on 09-22-2021 MCHC (RBC) [Mass/Vol] 32.7 g/dL 32-36 [facility] Work Phone: [phone] Mucus LM Ql (Urine sed)on Mucus Ql (Urine sed) 0 SEEN /hpf [facility] Work Phone: [phone] Nitrite Test strip Ql (U)on 09-22-2021 Nitrite Ql (U) Negative Negative [facility] Work Phone: [phone] Panel Informationon 09-22 Estimated Creatinine Clearance Calc 51.30 ml/min [facility] Work Phone: [phone] Estimated GFR (MDRD) Amer 62 mL/min >60 [facility] Work Phone: Comment on above: GFR Calc Estimated GFR (MDRD) Non-Af Amer 51 mL/min >60 [facility] Work Phone: Comment on above: Non- GFR Calc Platelets bldon 09-22-2021 Platelets (Bld) [#/Vol] 317 10*3/uL 150-450 [facility] Work Phone: [phone] Protein Test strip Ql (U)on 09-22-2021 Protein Ql (U) Negative Negative [facility] Work Phone: [phone] Serum or plasma calcium paddy urement (mass/volume)on 09-22-2021 Calcium [Mass/Vol] 9.3 mg/dL 8.5-10.1 [facility] Work Phone: [phone] Serum or plasma creatinine m easurement (mass/volume)on 09-22-2021 Creatinine [Mass/Vol] 1.16 mg/dL 0.55-1.02 [facility] Work Phone: Comment on above: The validity of the calculated GFR & GFRAA in patients over 70 years has not been determined. Clinical correlation is essential. Serum or plasma urea nitroge n measurement (mass/volume)on 09-22-2021 Urea nitrogen [Mass/Vol] 20 mg/dL 7-18 [facility] Work Phone: [phone] Squamous epithelial cells de tection in urine sediment by light microscopyon 09-22-2021 Epithelial cells.squamous LM Ql (Urine sed) 0 SEEN /hpf 5-10 [facility] Work Phone: [phone] Thin prep Papanicolaou smear with manual screeningon 09-22-2021 Thin prep Papanicolaou smear with manual screening 3 5-15 [facility] Work Phone: [phone] Urine blood detectionon RBC Ql (U) Negative Negative [facility] Work Phone: [phone] RBC Ql (U) 0 SEEN /hpf 0-5 [facility] Work Phone: [phone] Urine clarityon 09-22-2021 Clarity (U) Clear Clear [facility] Work Phone: Urine color determinationon 09-22-2021 Color (U) Yellow Yellow [facility] Work Phone: Urine glucose detectionon Glucose Ql (U) Normal mg/dl Normal [facility] Work Phone: Urine leukocyte esterase det ection by dipstickon 09-22-2021 Leukocyte esterase Test strip Ql (U) 25 /ul Negative [facility] Work Phone: Urine pHon 09-22-2021 pH (U) 7.0 [pH] 5.0 - 8.0 [facility] Work Phone: Urine sediment bacteria coun t by microscopy (number/high power field)on 09-22-2021 Bacteria LM.HPF (Urine sed) [#/Area] 0 /[HPF] None Seen [facility] Work Phone: Urine specific gravity measu rementon 09-22-2021 Specific gravity (U) [Rel density] 1.010 1.002-1.03 0 [facility] Work Phone: Urobilinogen Auto test strip Ql (U)on 09-22-2021 Urobilinogen Ql (U) Normal mg/dl Normal [facility] Work Phone: Absolute lymphocyte counton 09-15-2021 Lymphocytes Auto (Unsp spec) [#/Vol] 1.75 10*3/uL 0.83-4.51 [facility] Work Phone: Atypical perinuclear antineu trophil cytoplasmic antibodies measurementon 09-15-2021 Neutrophil cytoplasmic Ab.perinuclear.atypic al IF (S) [Titer] <1:20 titer Neg:<1:20 [facility] Work Phone: Comment on above: The atypical pANCA p attern has been observed in asignificant percentage of patients with ulcerative colitis,primary sclerosing cholangitis and autoimmune hepatitis. Basophil percentageon 2021 Basophil percentage < 0.2 AI 0.0-0.9 [facility] Work Phone: Ammonia (P) [Moles/Vol] 35.0 umol/L 11-32 [facility] Work Phone: Basophils/100 WBC (Bld) 0.9 % 0-1 [facility] Work Phone: Bilirubin [Mass/Vol] 0.60 mg/dL 0.20-1.00 [facility] Work Phone: Comment on above: For patients on eltr ombopag therapy, use of Dimension [place] TBIL is not recommended. Chloride [Moles/Vol] 108 mmol/L 98-107 [facility] Work Phone: Eosinophils/100 WBC (Bld) 3.9 % 0-5 [facility] Work Phone: Glucose [Mass/Vol] 94 mg/dL 74-106 [facility] Work Phone: Neutrophils (Bld) [#/Vol] 4.1 10*3/uL 2.0-7.7 [facility] Work Phone: Neutrophils/100 WBC (Bld) 61.8 % 47-70 [facility] Work Phone: Potassium [Moles/Vol] 4.5 mmol/L 3.5-5.1 [facility] Work Phone: Protein [Mass/Vol] 7.6 g/dL 6.4-8.2 [facility] Work Phone: Sodium [Moles/Vol] 139 mmol/L 136-145 [facility] Work Phone: WBC (Bld) [#/Vol] 6.7 10*3/uL 4.4-11.0 [facility] Work Phone: Blood erythrocytes count (nu mber/volume)on 09-15-2021 RBC (Bld) [#/Vol] 3.06 10*6/uL 4.2-5.4 [facility] Work Phone: Blood hemoglobin measurement (mass/volume)on 09-15-2021 Hemoglobin (Bld) [Mass/Vol] 9.3 g/dL 12.0-15.0 [facility] Work Phone: Blood lymphocytes/100 leukoc yteson 09-15-2021 Lymphocytes/100 WBC (Bld) 26.3 % 19-41 [facility] Work Phone: Blood monocytes/100 leukocyt eson 09-15-2021 Monocytes/100 WBC (Bld) 6.8 % 0-10 [facility] Work Phone: Blood platelet mean volumeon 09-15-2021 Platelet mean volume (Bld) [Entitic vol] 11.5 fL 6.2-12.0 [facility] Work Phone: Determination of erythrocyte mean corpuscular volume (MCV)on 09-15-2021 MCV (RBC) [Entitic vol] 96.1 fL 81-99 [facility] Work Phone: Direct bilirubinon 2 Bilirubin.direct [Mass/Vol] 0.10 mg/dL 0.00-0.30 [facility] Work Phone: Erythrocyte sedimentation ra emanuel 09-15-2021 ESR (Bld) [Velocity] 65 mm/h 0-30 [facility] Work Phone: Hematocrit Auto (Bld) [Volum e fraction]on 09-15-2021 Hematocrit (Bld) [Volume fraction] 29.4 % 37-47 [facility] Work Phone: INR in Blood by Coagulation assayon 09-15-2021 INR Coag (Bld) [Relative time] 1.6 {INR} [facility] Work Phone: Laboratory - Chemistry and C hemistry - challengeon 09-15-2021 ALP [Catalytic activity/Vol] 85 U/L 45-117 [facility] Work Phone: ALT [Catalytic activity/Vol] 24 U/L 13-56 [facility] Work Phone: CO2 [Moles/Vol] 28.0 mmol/L 21.0-32.0 [facility] Work Phone: [phone] Globulin (S) [Mass/Vol] 3.9 g/dL 2.2-4.2 [facility] Work Phone: [phone] Urea nitrogen/Creatinine [Mass ratio] 28.2 mg/mg 10-20 [facility] Work Phone: [phone] Laboratory - Coagulationon 0 09-15-2021 aPTT Coag (Bld) [Time] 34.1 s 24.1-36.2 [facility] Work Phone: [phone] PT Coag (PPP) [Time] 18.5 s 11.7-14.9 [facility] Work Phone: [phone] Laboratory - Hematology and Cell countson 09-15-2021 Erythrocyte distribution width (RBC) [Entitic vol] 50.2 fL 35.1-43.9 [facility] Work Phone: [phone] Erythrocyte distribution width (RBC) [Ratio] 14.4 % 11.6-14.6 [facility] Work Phone: [phone] Immature granulocytes/100 WBC (Bld) 0.300 % 0.0-0.9 [facility] Work Phone: [phone] Comment on above: IG% - Immature Granu locytes (promyelocytes, myelocytes and metamyelocytes) > 1% indicates that a LEFT SHIFT is Present. MCH (RBC) [Entitic mass] 30.4 pg 27.0-32.0 [facility] Work Phone: [phone] Nucleated RBC/100 WBC (Bld) [Ratio] 0 % 0-5 [facility] Work Phone: [phone] MCHC Auto (RBC) [Mass/Vol]on 09-15-2021 MCHC (RBC) [Mass/Vol] 31.6 g/dL 32-36 [facility] Work Phone: [phone] Panel Informationon 09-15 Centromere B Antibody <0.2 AI 0.0-0.9 [facility] Work Phone: [phone] SENIOR POLICY ANALYST Antibody <0.2 AI 0.0-0.9 [facility] Work Phone: Ceruloplasmin 28.9 mg/dL 19.0-39.0 [facility] Work Phone: [phone] Estimated GFR (MDRD) Amer 104 mL/min >60 [facility] Work Phone: [phone] Comment on above: GFR Calc Estimated GFR (MDRD) Non-Af Amer 86 mL/min >60 [facility] Work Phone: [phone] Comment on above: Non- GFR Calc Hepatitis A IgM Antibody Negative Negative [facility] Work Phone: [phone] Hepatitis B Core IgM Antibody Negative Negative [facility] Work Phone: [phone] Hepatitis C Antibody (EIA) <0.1 s/co ratio 0.0-0.9 [facility] Work Phone: [phone] Comment on above: Negative: < 0.8 Inde terminate: 0.8 - 0.9 Positive: > 0.9 The CDC recommends that a positive HCV antibody result be followed up with a HCV Nucleic Acid Amplification test (162297).Effective October 03, 2021 Hepatitis Panel (4) will be made non-orderable. [facility] offers order code [id number] Acute Hepatitis. Immunoglobulin E 16 IU/mL 6-495 [facility] Work Phone: Platelets bldon 09-15-2021 Platelets (Bld) [#/Vol] 237 10*3/uL 150-450 [facility] Work Phone: [phone] Serum DNA double strand anti body assay (units/volume)on 09-15-2021 DNA double strand Ab Qn (S) [IU]/mL 0-9 [facility] Work Phone: [phone] Comment on above: Negative <5 Equivoca l 5 - 9 Positive >9 Serum Bina-1 antibody assay (u nits/volume)on 09-15-2021 Bina-1 extractable nuclear Ab Qn (S) <0.2 AI 0.0-0.9 [facility] Work Phone: [phone] Serum Scl-70 extractable nuc lear antibody assay (units/volume)on 09-15-2021 SCL-70 extractable nuclear Ab Qn (S) <0.2 AI 0.0-0.9 [facility] Work Phone: Serum Pemberton extractable nucl ear antibody detectionon 09-15-2021 [place] extractable nuclear Ab Ql (S) <0.2 AI 0.0-0.9 [facility] Work Phone: Serum classic neutrophil cyt oplasmic antibody assay (units/volume)on 09-15-2021 Neutrophil cytoplasmic Ab.classic Qn (S) <1:20 titer Neg:<1:20 [facility] Work Phone: Serum mitochondria antibody detectionon 09-15-2021 Mitochondria Ab Ql (S) <20.0 Units 0.0-20.0 [facility] Work Phone: Comment on above: Negative 0.0 - 20.0 Equivocal 20.1 - 24.9 Positive >24.9Mitochondrial (M2) Antibodies are found in 90-96% ofpatients with primary biliary cirrhosis.Performed at: [address] [id number] Director: Eliseo Yañez PhD, Phone: [phone] Serum or plasma C reactive p rotein measurement (mass/volume)on 09-15-2021 CRP [Mass/Vol] 46.00 mg/L 0.0-3.0 [facility] Work Phone: Comment on above: C-Reactive Protein ( CRP) provides useful information for thediagnosis, therapy and monitoring of inflammatory processesand associated diseases. For the evaluation of Relative Riskfor Cardiovascular Disease, a High Sensitivity CRP (HSCRP)should be ordered. Serum or plasma IgA measurem ent (mass/volume)on 09-15-2021 IgA [Mass/Vol] 336 mg/dL 87-352 [facility] Work Phone: Serum or plasma IgG measurem ent (mass/volume)on 09-15-2021 IgG [Mass/Vol] 902 mg/dL [phone] [facility] Work Phone: Serum or plasma IgM measurem ent (mass/volume)on 09-15-2021 IgM [Mass/Vol] 165 mg/dL 26-217 [facility] Work Phone: Comment on above: Performed at: CB - [facility] [address] [id number] Director: Eliseo Yañez PhD, Phone: [phone] at: - [facility] [address] [id number] Director: Azalia Rosen MD, Phone: [phone] Serum or plasma actin IgG an tibody assay (units/volume)on 09-15-2021 Actin IgG Qn 4 Units 0-19 [facility] Work Phone: Comment on above: Negative 0 - 19 Weak positive 20 - 30 Moderate to strong positive >30 Actin Antibodies are found in 52-85% of patients with autoimmune hepatitis or chronic active hepatitis and in 22% of patients with primary biliary cirrhosis. Serum or plasma albumin paddy urement (mass/volume)on 09-15-2021 Albumin [Mass/Vol] 3.7 g/dL 3.2-5.0 [facility] Work Phone: [phone] Serum or plasma albumin/glob ulin mass ratioon 09-15-2021 Albumin/Globulin [Mass ratio] 0.9 {ratio} 0.9-2.4 [facility] Work Phone: [phone] Serum or plasma angiotensin converting enzyme measurement (enzymatic activity/volume)on 09-15-2021 Angiotensin converting enzyme [Catalytic activity/Vol] 33 U/L 14-82 [facility] Work Phone: [phone] Serum or plasma calcium paddy urement (mass/volume)on 09-15-2021 Calcium [Mass/Vol] 9.1 mg/dL 8.5-10.1 [facility] Work Phone: [phone] Serum or plasma creatinine m easurement (mass/volume)on 09-15-2021 Creatinine [Mass/Vol] 0.74 mg/dL 0.55-1.02 [facility] Work Phone: Comment on above: The validity of the calculated GFR & GFRAA in patients over 70 years has not been determined. Clinical correlation is essential. Serum or plasma hepatitis B virus surface antigen detection by immunoassayon 09-15-2021 HBV surface Ag IA Ql Negative Negative [facility] Work Phone: [phone] Serum or plasma urea nitroge n measurement (mass/volume)on 09-15-2021 Urea nitrogen [Mass/Vol] 21 mg/dL 7-18 [facility] Work Phone: Serum perinuclear neutrophil cytoplasmic antibody titer by immunofluorescenceon 09-15-2021 Neutrophil cytoplasmic Ab.perinuclear IF (S) [Titer] <1:20 titer Neg:<1:20 [facility] Work Phone: Comment on above: The presence of posi tive fluorescence exhibiting P-ANCA orC- ANCA patterns alone is not specific for the diagnosis ofWegener's Granulomatosis (WG) or microscopic polyangiitis.Decisions about treatment should not be based solely onANCA IFA results. The [employer] ANCA [employer] Consensusrecommends follow up testing of positive sera with both ND-3 and MPO-ANCA enzyme immunoassays. As many as 5% serumsamples are positive only by EIA. Ref. AM J Clin [id number];111:507-513. Thin prep Papanicolaou smear with manual screeningon 09-15-2021 Thin prep Papanicolaou smear with manual screening 16 U/L 15-37 [facility] Work Phone: [phone] Thin prep Papanicolaou smear with manual screening 3 5-15 [facility] Work Phone: [phone] Thin prep Papanicolaou smear with manual screening 153 U/L 84-246 [facility] Work Phone: [phone] Thin prep Papanicolaou smear with manual screening 127 ug/dL 80-158 [facility] Work Phone: [phone] Comment on above: Detection Limit = 5 Absolute lymphocyte counton 08-31-2021 Lymphocytes Auto (Unsp spec) [#/Vol] 2.01 10*3/uL 0.83-4.51 [facility] Work Phone: Basophil percentageon 2021 Basophils/100 WBC (Bld) 0.6 % 0-1 [facility] Work Phone: Chloride [Moles/Vol] 109 mmol/L 98-107 [facility] Work Phone: Eosinophils/100 WBC (Bld) 3.0 % 0-5 [facility] Work Phone: Glucose [Mass/Vol] 116 mg/dL 74-106 [facility] Work Phone: Comment on above: Fasting Glucose resu lt from 100 to 125 mg/dL suggests IMPAIRED HOMEOSTASIS per A.D.A. criteria. Neutrophils (Bld) [#/Vol] 3.5 10*3/uL 2.0-7.7 [facility] Work Phone: Neutrophils/100 WBC (Bld) 54.7 % 47-70 [facility] Work Phone: Potassium [Moles/Vol] 3.7 mmol/L 3.5-5.1 [facility] Work Phone: Sodium [Moles/Vol] 142 mmol/L 136-145 [facility] Work Phone: WBC (Bld) [#/Vol] 6.4 10*3/uL 4.4-11.0 [facility] Work Phone: Blood erythrocytes count (nu mber/volume)on 08-31-2021 RBC (Bld) [#/Vol] 2.59 10*6/uL 4.2-5.4 [facility] Work Phone: Blood hemoglobin measurement (mass/volume)on 08-31-2021 Hemoglobin (Bld) [Mass/Vol] 7.8 g/dL 12.0-15.0 [facility] Work Phone: Blood lymphocytes/100 leukoc yteson 08-31-2021 Lymphocytes/100 WBC (Bld) 31.2 % 19-41 [facility] Work Phone: Blood monocytes/100 leukocyt eson 08-31-2021 Monocytes/100 WBC (Bld) 9.3 % 0-10 [facility] Work Phone: Blood platelet mean volumeon 08-31-2021 Platelet mean volume (Bld) [Entitic vol] 10.9 fL 6.2-12.0 [facility] Work Phone: [phone] Determination of erythrocyte mean corpuscular volume (MCV)on 08-31-2021 MCV (RBC) [Entitic vol] 96.5 fL 81-99 [facility] Work Phone: [phone] Hematocrit Auto (Bld) [Volum e fraction]on 08-31-2021 Hematocrit (Bld) [Volume fraction] 25.0 % 37-47 [facility] Work Phone: [phone] Laboratory - Chemistry and C hemistry - challengeon 08-31-2021 CO2 [Moles/Vol] 28.0 mmol/L 21.0-32.0 [facility] Work Phone: [phone] Urea nitrogen/Creatinine [Mass ratio] 8.8 mg/mg 10-20 [facility] Work Phone: [phone] Laboratory - Hematology and Cell countson 08-31-2021 Erythrocyte distribution width (RBC) [Entitic vol] 53.5 fL 35.1-43.9 [facility] Work Phone: [phone] Erythrocyte distribution width (RBC) [Ratio] 15.6 % 11.6-14.6 [facility] Work Phone: [phone] Immature granulocytes/100 WBC (Bld) 1.200 % 0.0-0.9 [facility] Work Phone: [phone] Comment on above: IG% - Immature Granu locytes (promyelocytes, myelocytes and metamyelocytes) > 1% indicates that a LEFT SHIFT is Present. MCH (RBC) [Entitic mass] 30.1 pg 27.0-32.0 [facility] Work Phone: [phone] Nucleated RBC/100 WBC (Bld) [Ratio] 0.5 % 0-5 [facility] Work Phone: [phone] MCHC Auto (RBC) [Mass/Vol]on 08-31-2021 MCHC (RBC) [Mass/Vol] 31.2 g/dL 32-36 [facility] Work Phone: No Panel Informationon 08-31 Estimated Creatinine Clearance Calc 106.26 ml/min [facility] Work Phone: Estimated GFR (MDRD) Amer 143 mL/min >60 [facility] Work Phone: Comment on above: GFR Calc Estimated GFR (MDRD) Non-Af Amer 118 mL/min >60 [facility] Work Phone: Comment on above: Non- GFR Calc Platelets bldon 08-31-2021 Platelets (Bld) [#/Vol] 257 10*3/uL 150-450 [facility] Work Phone: Serum or plasma calcium paddy urement (mass/volume)on 08-31-2021 Calcium [Mass/Vol] 8.0 mg/dL 8.5-10.1 [facility] Work Phone: [phone] Serum or plasma creatinine m easurement (mass/volume)on 08-31-2021 Creatinine [Mass/Vol] 0.56 mg/dL 0.55-1.02 [facility] Work Phone: Comment on above: The validity of the calculated GFR & GFRAA in patients over 70 years has not been determined. Clinical correlation is essential. Serum or plasma urea nitroge n measurement (mass/volume)on 08-31-2021 Urea nitrogen [Mass/Vol] 5 mg/dL 7-18 [facility] Work Phone: Thin prep Papanicolaou smear with manual screeningon 08-31-2021 Thin prep Papanicolaou smear with manual screening 5 5-15 [facility] Work Phone: [phone] Iron measurement (mass/mass) on 08-27-2021 Iron (Unsp spec) [Mass/Mass] 51 ug/dL 50-170 [facility] Work Phone: [phone] Lower GI hemoglobin IA Ql (S tl)on 08-27-2021 Stool Occult Blood (KAELA) Positive [facility] Work Phone: No Panel Informationon 08-27 Total Iron Binding Capacity 283 ug/dL 250-450 [facility] Work Phone: [phone] Troponin I High Sensitivity 5 pg/mL 3.0-54.0 [facility] Work Phone: [phone] Comment on above: Please Note: New Daniella t Units and Gender Specific Reference Ranges. For more information see Policy Stat Procedure [facility] High Sensitivity Troponin (TNIH) and attachments. Serum or plasma ferritin phil surement (mass/volume)on 08-27-2021 Ferritin [Mass/Vol] 137 ng/mL 8-252 [facility] Work Phone: [phone] Serum or plasma iron saturat ion measurement (mass fraction)on 08-27-2021 Iron saturation [Mass fraction] 18.0 % 15.0-55.0 [facility] Work Phone: [phone] Basophil percentageon 2021 Lactate [Moles/Vol] 0.6 mmol/L 0.4-2.0 [facility] Work Phone: [phone] Basophil percentage >100 SEEN /hpf [facility] Work Phone: [phone] Bilirubin [Mass/Vol] 0.30 mg/dL 0.20-1.00 [facility] Work Phone: [phone] Comment on above: For patients on eltr ombopag therapy, use of Dimension [place] TBIL is not recommended. Protein [Mass/Vol] 7.6 g/dL 6.4-8.2 [facility] Work Phone: [phone] Bilirubin Test strip Ql (U)o n 08-26-2021 Bilirubin Ql (U) Negative Negative [facility] Work Phone: [phone] Culture, urineon 08-26-2021 Bacteria identified Cx Nom (U) Presumptive E. coli [facility] Work Phone: [phone] Ketones Test strip Ql (U)on 08-26-2021 Ketones Ql (U) Negative Negative [facility] Work Phone: [phone] Laboratory - Chemistry and C hemistry - challengeon 08-26-2021 ALP [Catalytic activity/Vol] 113 U/L 45-117 [facility] Work Phone: ALT [Catalytic activity/Vol] 91 U/L 13-56 [facility] Work Phone: Globulin (S) [Mass/Vol] 4.2 g/dL 2.2-4.2 [facility] Work Phone: Laboratory - Microbiology an d Antimicrobial susceptibilityon 08-26-2021 Bacteria identified Cx Nom (Bld) No growth in 5 days. [facility] Work Phone: Mucus LM Ql (Urine sed)on Mucus Ql (Urine sed) 0 SEEN /hpf [facility] Work Phone: Nitrite Test strip Ql (U)on 08-26-2021 Nitrite Ql (U) Positive Negative [facility] Work Phone: [phone] Protein Test strip Ql (U)on 08-26-2021 Protein Ql (U) 30 mg/dl Negative [facility] Work Phone: Serum or plasma albumin paddy urement (mass/volume)on 08-26-2021 Albumin [Mass/Vol] 3.4 g/dL 3.2-5.0 [facility] Work Phone: [phone] Serum or plasma albumin/glob ulin mass ratioon 08-26-2021 Albumin/Globulin [Mass ratio] 0.8 {ratio} 0.9-2.4 [facility] Work Phone: Squamous epithelial cells de tection in urine sediment by light microscopyon 08-26-2021 Epithelial cells.squamous LM Ql (Urine sed) 0 SEEN /hpf [facility] Work Phone: Thin prep Papanicolaou smear with manual screeningon 08-26-2021 Thin prep Papanicolaou smear with manual screening 72 U/L 15-37 [facility] Work Phone: Urine blood detectionon RBC Ql (U) 25 /ul Negative [facility] Work Phone: RBC Ql (U) 0-5 SEEN /hpf [facility] Work Phone: Urine clarityon 08-26-2021 Clarity (U) Cloudy Clear [facility] Work Phone: Urine color determinationon 08-26-2021 Color (U) Yellow Yellow [facility] Work Phone: Urine glucose detectionon Glucose Ql (U) Normal mg/dl Normal [facility] Work Phone: Urine leukocyte esterase det ection by dipstickon 08-26-2021 Leukocyte esterase Test strip Ql (U) 500 /ul Negative [facility] Work Phone: Urine pHon 08-26-2021 pH (U) 5.0 [pH] [facility] Work Phone: Urine sediment bacteria coun t by microscopy (number/high power field)on 08-26-2021 Bacteria LM.HPF (Urine sed) [#/Area] 4 /[HPF] None Seen [facility] Work Phone: Urine specific gravity measu rementon 08-26-2021 Specific gravity (U) [Rel density] 1.020 [facility] Work Phone: Urobilinogen Auto test strip Ql (U)on 08-26-2021 Urobilinogen Ql (U) Normal mg/dl Normal [facility] Work Phone: No Panel Informationon 08-25 SARS-CoV-2 Antigen (Rapid) [facility] Work Phone: Absolute lymphocyte counton 08-18-2021 Lymphocytes Auto (Unsp spec) [#/Vol] 2.20 10*3/uL 0.83-4.51 [facility] Work Phone: Basophil percentageon 2021 Basophils/100 WBC (Bld) 0.8 % 0-1 [facility] Work Phone: Chloride [Moles/Vol] 103 mmol/L 98-107 [facility] Work Phone: Eosinophils/100 WBC (Bld) 2.9 % 0-5 [facility] Work Phone: Glucose [Mass/Vol] 113 mg/dL 74-106 [facility] Work Phone: Comment on above: Fasting Glucose resu lt from 100 to 125 mg/dL suggests IMPAIRED HOMEOSTASIS per A.D.A. criteria. Neutrophils (Bld) [#/Vol] 4.6 10*3/uL 2.0-7.7 [facility] Work Phone: Neutrophils/100 WBC (Bld) 60.4 % 47-70 [facility] Work Phone: Potassium [Moles/Vol] 4.3 mmol/L 3.5-5.1 [facility] Work Phone: Sodium [Moles/Vol] 140 mmol/L 136-145 [facility] Work Phone: WBC (Bld) [#/Vol] 7.6 10*3/uL 4.4-11.0 [facility] Work Phone: Blood erythrocytes count (nu mber/volume)on 08-18-2021 RBC (Bld) [#/Vol] 3.60 10*6/uL 4.2-5.4 [facility] Work Phone: Blood hemoglobin measurement (mass/volume)on 08-18-2021 Hemoglobin (Bld) [Mass/Vol] 10.5 g/dL 12.0-15.0 [facility] Work Phone: Blood lymphocytes/100 leukoc yteson 08-18-2021 Lymphocytes/100 WBC (Bld) 29.1 % 19-41 [facility] Work Phone: Blood monocytes/100 leukocyt eson 08-18-2021 Monocytes/100 WBC (Bld) 6.5 % 0-10 [facility] Work Phone: Blood platelet mean volumeon 08-18-2021 Platelet mean volume (Bld) [Entitic vol] 10.8 fL 6.2-12.0 [facility] Work Phone: Determination of erythrocyte mean corpuscular volume (MCV)on 08-18-2021 MCV (RBC) [Entitic vol] 95.6 fL 81-99 [facility] Work Phone: [phone] Hematocrit Auto (Bld) [Volum e fraction]on 08-18-2021 Hematocrit (Bld) [Volume fraction] 34.4 % 37-47 [facility] Work Phone: INR in Blood by Coagulation assayon 08-18-2021 INR Coag (Bld) [Relative time] 2.1 {INR} [facility] Work Phone: [phone] Laboratory - Chemistry and C hemistry - challengeon 08-18-2021 CO2 [Moles/Vol] 31.0 mmol/L 21.0-32.0 [facility] Work Phone: [phone] Urea nitrogen/Creatinine [Mass ratio] 19.3 mg/mg 10-20 [facility] Work Phone: Laboratory - Coagulationon 0 08-18-2021 aPTT Coag (Bld) [Time] 48.1 s 24.1-36.2 [facility] Work Phone: [phone] PT Coag (PPP) [Time] 22.5 s 11.7-14.9 [facility] Work Phone: [phone] Laboratory - Hematology and Cell countson 08-18-2021 Erythrocyte distribution width (RBC) [Entitic vol] 49.5 fL 35.1-43.9 [facility] Work Phone: [phone] Erythrocyte distribution width (RBC) [Ratio] 14.2 % 11.6-14.6 [facility] Work Phone: [phone] Immature granulocytes/100 WBC (Bld) 0.300 % 0.0-0.9 [facility] Work Phone: Comment on above: IG% - Immature Granu locytes (promyelocytes, myelocytes and metamyelocytes) > 1% indicates that a LEFT SHIFT is Present. MCH (RBC) [Entitic mass] 29.2 pg 27.0-32.0 [facility] Work Phone: Nucleated RBC/100 WBC (Bld) [Ratio] 0 % 0-5 [facility] Work Phone: MCHC Auto (RBC) [Mass/Vol]on 08-18-2021 MCHC (RBC) [Mass/Vol] 30.5 g/dL 32-36 [facility] Work Phone: No Panel Informationon 08-18 Estimated Creatinine Clearance Calc 76.29 ml/min [facility] Work Phone: [phone] Estimated GFR (MDRD) Amer 99 mL/min >60 [facility] Work Phone: [phone] Comment on above: GFR Calc Estimated GFR (MDRD) Non-Af Amer 82 mL/min >60 [facility] Work Phone: Comment on above: Non- GFR Calc Platelets bldon 08-18-2021 Platelets (Bld) [#/Vol] 305 10*3/uL 150-450 [facility] Work Phone: Serum or plasma calcium paddy urement (mass/volume)on 08-18-2021 Calcium [Mass/Vol] 9.2 mg/dL 8.5-10.1 [facility] Work Phone: Serum or plasma creatinine m easurement (mass/volume)on 08-18-2021 Creatinine [Mass/Vol] 0.78 mg/dL 0.55-1.02 [facility] Work Phone: Comment on above: The validity of the calculated GFR & GFRAA in patients over 70 years has not been determined. Clinical correlation is essential. Serum or plasma urea nitroge n measurement (mass/volume)on 08-18-2021 Urea nitrogen [Mass/Vol] 15 mg/dL 7-18 [facility] Work Phone: [phone] Thin prep Papanicolaou smear with manual screeningon 08-18-2021 Thin prep Papanicolaou smear with manual screening 6 5-15 [facility] Work Phone: [phone] [facility]on 02-25-20 21 [facility] * * *Final Report* * * * * * SEE BOTTOM OF REPORT FOR ADDENDED TEXT * * * DATE OF EXAM: Feb 24 2021 8:36AM AAW 0621 - [facility] / PROCEDURE REASON: Abnormal ultrasound of breast * * * * Physician Interpretation * * * * FINAL REPORT #[id number] - [facility] US BIOPSY BREAST LT #[id number] - [facility] DIAGNOSTIC LT ULTRASOUND GUIDED BIOPSY LEFT BREAST [...] undergo the procedure. Dr. Decker and a biochemistry technologist were present throughout the entire procedure. Audible Time Out Time: 913 Procedure Start Time: 914 Procedure Stop Time: 919 Dr. Decker performed the entire procedure without an administrative assistant front desk. PROCEDURE: Correlation is made to exams dated: 01/04/2021 ultrasound and 01/04/2021 mammogram - [facility]. An ultrasound guided biopsy using real-time ultrasound [...] results and surgical management. Stephanie dai/jessica:02/25/2021 16:08:46 Bumper Straightener(s): Lima Cunningham R.D.M.S., [facility]; RT Cathryn(R)(M), [facility] [place] Multiple national specialty organizations have released breast cancer screening guidelines for women at average risk for developing breast cancer - guidelines that are based on both evidence and opinion, yet differ on when to start and how often to screen for breast cancer. With representation from Breast Imaging, Internal Medicine, Women's Health, Family Medicine, and Medical/Surgical Oncology, the [facility] has carefully reviewed the data and reached [...] their providers when to stop screening mammograms. Radiologic Technician: Jessica Transcribe Date/Time: Feb 24 2021 8:36A Dictated by : STEPHANIE DECKER MD This examination was interpreted and the report reviewed and electronically signed by: STEPHANIE DECKER MD on Feb 24 2021 9:57AM EST This document has been addended by: STEPHANIE DECKER MD on Feb 25 2021 4:08PM EST [id number] Normal [facility] US BIOPSY BREAST LTon [facility] US BIOPSY BREAST LT * * *Final Report* * * * * * SEE BOTTOM OF REPORT FOR ADDENDED TEXT * * * DATE OF EXAM: Feb 24 2021 9:34AM AAW 0597 - [facility] US BIOPSY BREAST LT / PROCEDURE REASON: Abnormal ultrasound of breast * * * * Physician Interpretation * * * * FINAL REPORT #[id number] - [facility] US BIOPSY BREAST LT #[id number] - [facility] DIAGNOSTIC LT ULTRASOUND GUIDED BIOPSY LEFT BREAST [...] undergo the procedure. Dr. Decker and a biochemistry technologist were present throughout the entire procedure. Audible Time Out Time: 913 Procedure Start Time: 914 Procedure Stop Time: 919 Dr. Decker performed the entire procedure without an administrative assistant front desk. PROCEDURE: Correlation is made to exams dated: 01/04/2021 ultrasound and 01/04/2021 mammogram - [facility]. An ultrasound guided biopsy using real-time ultrasound [...] results and surgical management. Stephanie dai/jessica:02/25/2021 16:08:46 Bumper Straightener(s): Lima Cunningham R.D.M.S., [facility]; RT Cathryn(R)(M), [facility] Multiple national specialty organizations have released breast cancer screening guidelines for women at average risk for developing breast cancer - guidelines that are based on both evidence and opinion, yet differ on when to start and how often to screen for breast cancer. With representation from Breast Imaging, Internal Medicine, Women's Health, Family Medicine, and Medical/Surgical Oncology, the [facility] has carefully reviewed the data and reached [...] their providers when to stop screening mammograms. Radiologic Technician: Jessica Transcribe Date/Time: Feb 24 2021 8:36A Dictated by : STEPHANIE DECKER MD This examination was interpreted and the report reviewed and electronically signed by: STEPHANIE DECKER MD on Feb 24 2021 9:57AM EST This document has been addended by: STEPHANIE DECKER MD on Feb 25 2021 4:08PM EST [id number] Normal [facility] SURGICAL PATHOLOGYon 021 CASE REPORT Normal [facility] Comment on above: Order Comment: Speci men Type: TISSUE SPECIMEN Result Comment: Surg ical Pathology Report Case: [id number] Authorizing Provider: Stephanie Decker MD Collected: 02/24/2021 09:17 AM Ordering Location: [facility] Received: 02/24/2021 01:55 PM [facility] Pathologist: Noé Casillas MD Specimen: BREAST CORE BIOPSY LEFT, 7:00 subareolar region Performed By: #### S #### [facility] CLIA [id number] [address] CLINICAL HISTORY Low suspicion oval mass Normal [facility] Comment on above: Order Comment: Speci men Type: TISSUE SPECIMEN Performed By: #### S #### [facility] CLIA [id number] [address] DIAGNOSIS COMMENT Normal [facility] Comment on above: Order Comment: Speci men Type: TISSUE SPECIMEN Result Comment: The case was reviewed by Dr. Ge Chen who agrees with the diagnosis. Performed By: #### S #### [facility] CLIA [id number] [address] FINAL DIAGNOSIS Normal [facility] Comment on above: Order Comment: Speci men Type: TISSUE SPECIMEN Result Comment: Emma st, left, 7:00 subareolar region, ribbon clip, biopsy - Benign fragments of intraductal papilloma (see comment). Performed By: #### S #### [facility] CLIA [id number] [address] FINAL PERFORMING LAB Normal [facility] Comment on above: Order Comment: Speci men Type: TISSUE SPECIMEN Result Comment: Diag nostic interpretation performed at [facility], [address] [place] [address] CLIA# [id number] Scroll Saw Operator: Ge Chen M.D. Performed By: #### S #### [facility] CLIA [id number] [address] GROSS DESCRIPTION Normal [facility] Comment on above: Order Comment: Speci men [...] the same day. Gross examination performed at [facility], [address] February 24, 2021 2:19 PM Performed By: #### S #### [facility] CLIA [id number] [address] CNPNon 12-16-2020 CNPN Telephone ([id number]) FELISHA PERRIN ([id number]) 1965 F Date Time Provider Department 12/16/20 [...] hyperlipidemia [E78.2] 11/17/2016 Pulmonary hypertension, secondary (HCC) [[id number]*11/17/2016 History of DVT of lower extremity [Z86.718] 12/28/2016 Colonic mass [K63.89] 03/02/2017 09/26/2017 Obesity, Class III, BMI >= 40 [E66.01] 01/01/2018 Restrictive lung disease secondary to obesity [*03/11/2018 Anemia [D64.9] 05/15/2018 Acquired renal cyst [N28.1] 09/03/2018 Essential hypertension [I10] 10/08/2018 Encounter Status:Closed by LATISHA RILEY on 12/16/20 [facility] Office Visit: Rodriguez 05-09-20 Dietary management education, guidance, and counseling (procedure) yes Invalid Interpretation Code [facility] Work Phone: Documentation of current medications (procedure) Done Invalid Interpretation Code [facility] Work Phone: Protein mass conc Done Invalid Interpretation Code [facility] Work Phone: Protein mass conc yes Invalid Interpretation Code [facility] Work Phone: Smoking cessation education (procedure) yes Invalid Interpretation Code [facility] Work Phone: Tobacco smoking status NHIS Never [...] yes Invalid Interpretation Code [facility] Work Phone: Documentation of current medications (procedure) Done Invalid Interpretation Code [facility] Work Phone: Protein mass conc Done [facility] Work Phone: Tobacco smoking status NHIS Never [facility] Work Phone: Tobacco smoking status NHIS Current every day smoker [facility] Work Phone: Tobacco use [facility] Current every day smoker Invali d Interpretation Code [facility] Work Phone: ANES Reyna 03-14-2017 ANES POST HNO ID: [id number] thor: Stephen WaddellService: AnesthesiologyAuthor Type: AnesthesiologistType: Anesthesia [...] 14, 2017 : 2:46 PM PAGER/CONTACT #: [phone] [facility] PREOPon 03-14-2017 ANE PREOP HNO ID: [id number] thor: Stephen WaddellService: AnesthesiologyAuthor Type: AnesthesiologistType: Anesthesia [...] Bmi of 45.0-49.9, Adult (Hcc)Pulmonary Hypertension, Secondary ([facility])History of Dvt of Lower ExtremityMass of colon on CT scanColonic [facility] MEDICAL HISTORYDiagnosis Date- Amaurosis fugax 04/03/2012- Anxiety- [...] sprain 09/16/2015- Smoker 1 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 Per [facility].mometasone (ELOCON) 0.1 % cream Apply 1 application to affected area oncedaily as needed (facial rash. Avoid eyes, nose, mouth.).XARELTO 20 mg tablet TAKE 1 TABLET BY MOUTH ONCE DAILY WITH SUPPERCOMPOUNDED PRESCRIPTION OXYGEN 2 LPM VIA NASAL CANNULA.Current Facility-Administered Medications:NaCl 0.9% iv infusion 30 mL/hr INTRAVENOUS CONTINUOUS Julian RothmananAllergies:ALLERGIESA llergen Reactions- Aspirin Swelling- Demerol [Meperidine*- Fish Swelling- Onion Anaphylaxis- [place] Anaphylaxis- Peanut Anaphylaxis- Penicillins- Shellfish Anaphylaxis- Toradol [...] March 14, 2017 : 10:26 AM CSN: [id number] [facility] NURSING PROGon 03-13-2017 NURSING PROG HNO ID: [id number] thor: Cathy (Rn) LAINE Krauseervice: (none)Author Type: [...] calledtoday- if not contacted by 3pm- given [facility] to call for time.Transportation post op per [facility],per pt. Pt verfied that she stoppedXarelto 2 days (last dose 03/11/17) prior to surgery per instructions. Ptstates no issues with anesthesia. Chart check complete PAT Leone Normal [facility] HOSPon 03-02-2017 HOSP Patient:Felisha ePrrin MRN: Height:5' 6(1.676 m)Weight:290 lb (131.543 kg)Outpatient [...] days for the following basenames: K,HCTProgress Notes ([facility]):Theodora Christianson Pharm-T 03/07/2017 3:06 PM SignedPharmacist Refill Authorization ReviewName: Felisha Summers [facility]: [id number]: 03/07/2017Time: 3:06 PMRefill authorization request(s) received via [...] mouth twice daily as neededfor Anxiety. Per [facility].COMPOUNDED PRESCRIPTION OXYGEN 2 LPM VIA NASAL CANNULA.No current facility-administered medications for this visit.Progress Notes ([facility] CR):Abbi Landa LPN 03/02/2017 11:09 AM SignedSpoke with Librado and procedure for colon/mac [facility]. Patient will be notified with [facility] date and time. Normal [facility] Append: [facility] Referral (tapanin g loop)on 02-09-2017 Clinical consultation report (record artifact) [id number]^01/02/2017 Invalid Interpretation Code [facility] Phone: Clinical Lists Update: Prelo hand bender 01-18-2017 Left ventricular Ejection fraction 65 % Invalid Interpretation Code [facility] Phone: [phone] Tobacco use [facility] Former smoker Invalid Interpretation Code [facility] Phone: Office Visiton 01-18-2017 Dietary management education, guidance, and counseling (procedure) yes Invalid Interpretation Code [facility] Phone: Documentation of current medications (procedure) Done Invalid Interpretation Code [facility] Phone: Fall risk assessment No Invalid Interpretation Code [facility] Phone: Protein mass conc Done [facility] Phone: [phone] Tobacco smoking status NHIS Former smoker [facility] Phone: [phone] Tobacco use [facility] Former smoker Invalid Interpretation Code [facility] Phone: Replaced Document: Kelby Maguire 01-18-2017 EKG QRS axis -6 deg Invalid Interpretation Code [facility] Work Phone: electrocardiogram interpretation Sinus Rhythm WITHIN NORMAL LIMITS Invalid Interpretation Code [facility] Phone: GE use only - for Link[employer]ic import when terms are not otherwise specified 434 ms Invalid Interpretation Code [facility] Phone: Interpretation Sinus Rhythm WITHIN NORMAL LIMITS Invalid Interpretation Code [facility] Work Phone: P [place] 29 deg Invalid Interpretation Code [facility] Work Phone: P wave axis, electrocardiogram 29 deg Invalid Interpretation Code [facility] Phone: ND Interval 166 ms Invalid Interpretation Code [facility] Phone: ND interval, electrocardiogram 166 ms Invalid Interpretation Code [facility] Phone: Pulse (Heart Rate) 82 /min Invalid Interpretation Code [facility] Phone: QRS axis, electrocardiogram -6 deg Invalid Interpretation Code [facility] Phone: QRS Duration 100 ms Invalid Interpretation Code [facility] Phone: QRS duration, electrocardiogram 100 ms Invalid Interpretation Code [facility] Phone: QT Interval new path ms Invalid Interpretation Code [facility] [employer] Work Phone: QT interval, electrocardiogram new path ms Invalid Interpretation Code [facility] Phone: [phone] QTc Gutiérrez 434 ms Invalid Interpretation Code [facility] Work Phone: T [place] 13 deg Invalid Interpretation Code [facility] Work Phone: T wave axis, electrocardiogram 13 deg Invalid Interpretation Code [facility] Phone: Office Visit: STEPHANIE & COPDon 0 01-02-2017 Documentation of current medications (procedure) Done Invalid Interpretation Code [facility] Phone: Protein mass conc Done [facility] Work Phone: Tobacco smoking status NHIS Never Invalid Interpretation Code [facility] Work Phone: Tobacco smoking status NHIS Former smoker [facility] Work Phone: Tobacco use [facility] Former smoker Invalid Interpretation Code [facility] Work Phone: Office Visit: hosp f/uon Protein mass conc Done [facility] Work Phone: Tobacco smoking status NHIS Never [facility] Work Phone: Tobacco smoking status NHIS Former smoker [facility] Work Phone: Clinical Lists Update: Prelo hand bender 03-14-2016 Anion gap 24 mmol/L High [facility] Work Phone: Anion gap 4 molar conc 24 High [facility] Work Phone: Anion gap molar conc 24 mmol/L High [facility] Work Phone: Calcium mass conc 9.9 mg/dL Invalid Interpretation Code [facility] Work Phone: [phone] Chloride molar conc 98 mmol/L Invalid Interpretation Code [facility] Work Phone: Cholesterol in HDL mass conc 65 mg/dL Invalid Interpretation Code [facility] Work Phone: Cholesterol in LDL mass conc 156 mg/dL High [facility] Work Phone: Cholesterol in LDL/Cholesterol [...] mmol/L Low [facility] Work Phone: [phone] Creatinine mass conc 0.70 mg/dL Invalid Interpretation Code [facility] Work Phone: [phone] Glucose 121 mg/dL High [facility] Work Phone: [phone] Glucose mass conc 121 mg/dL High [facility] Work Phone: [phone] Lipoprotein.pre-beta mass conc 35 mg/dL Invalid Interpretation Code [facility] Work Phone: [phone] Potassium molar conc 4.1 mmol/L Invalid Interpretation Code [facility] Work Phone: [phone] Sodium molar conc 143 mmol/L Invalid Interpretation Code [facility] Work Phone: [phone] Thyrotropin Qn 1.410 u[iU]/mL Invalid Interpretation Code [facility] Work Phone: [phone] Triglyceride mass conc 175 mg/dL High [facility] Work Phone: [phone] Urea nitrogen mass conc 7 mg/dL Low [facility] Work Phone: [phone] Culture, urine Bacteria identified Cx Nom (U) Escherichia coli [facility] Work Phone: [phone] Bacteria identified Cx Nom (U) Streptococcus agalactiae (B) [facility] Work Phone: [phone] Bacteria identified Cx Nom (U) Positive [facility] Work Phone: [phone] Laboratory - Microbiology an d Antimicrobial susceptibility Bacteria identified Cx Nom (Bld) No growth in 5 days. [facility] Work Phone: [phone] No Panel Information SARS-CoV-2 & FLU Antigen (Rapid) [facility] Work Phone: [phone] Vital Signs Date Time Vital Sign Value Performing Clinician Facility 01-08-2025 08:34-0400 Body height 167.[address] Ysabel Ruffin MD Work Phone: [facility] 01-08-2025 08:34-0400 Body mass index (BMI) [Ratio] 47.4 kg/m2 Dr. Ysabel Ruffin MD Work Phone: [facility] 01-08-2025 08:34-0400 Body temperature 98.2 [degF] Dr. Ysabel Ruffin MD Work Phone: [facility] 01-08-2025 08:34-0400 Body weight 133.[address] Ysabel Ruffin MD Work Phone: [facility] 01-08-2025 08:34-0400 Diastolic blood pressure 72 mm[Hg] Dr. Ysabel Ruffin MD Work Phone: [facility] 01-08-2025 08:34-0400 Heart rate 72 /min Dr. Ysabel Ruffin MD Work Phone: [facility] 01-08-2025 08:34-0400 Respiratory rate 15 /min Dr. Ysabel Ruffin MD Work Phone: [facility] 01-08-2025 08:34-0400 SaO2% (BldA) [Mass fraction] 98 % Dr. Ysabel Ruffin MD Work Phone: [facility] 01-08-2025 08:34-0400 Systolic blood pressure 108 mm[Hg] Dr. Ysabel Ruffin MD Work Phone: [facility] 12-29-2024 09:11-0400 Body height 167.[address] Ysabel Ruffin MD Work Phone: [facility] 12-29-2024 09:11-0400 Body mass index (BMI) [Ratio] 47.4 kg/m2 Dr. Ysabel Ruffin MD Work Phone: [facility] 12-29-2024 09:11-0400 Body temperature 97.1 [degF] Dr. Ysabel Ruffin MD Work Phone: [facility] 12-29-2024 09:11-0400 Body weight 133.[address] Ysabel Ruffin MD Work Phone: [facility] 12-29-2024 09:11-0400 Diastolic blood pressure 76 mm[Hg] Dr. Ysabel Ruffin MD Work Phone: [facility] 12-29-2024 09:11-0400 Heart rate 78 /min Dr. Ysabel Ruffin MD Work Phone: [facility] 12-29-2024 09:11-0400 Inhaled oxygen flow rate 3 L/min Dr. Ysabel Ruffin MD Work Phone: [facility] 12-29-2024 09:11-0400 Respiratory rate 16 /min Dr. Ysabel Ruffin MD Work Phone: [facility] 12-29-2024 09:11-0400 SaO2% (BldA) [Mass fraction] 94 % Dr. Ysabel Ruffin MD Work Phone: [facility] 12-29-2024 09:11-0400 Systolic blood pressure 106 mm[Hg] Dr. Ysabel Ruffin MD Work Phone: [facility] 11-20-2024 11:48-0400 Body temperature 98.4 [degF] Dr. Ysabel Ruffin MD Work Phone: [facility] 11-20-2024 11:48-0400 Diastolic blood pressure 77 mm[Hg] Dr. Ysabel Ruffin MD Work Phone: [facility] 11-20-2024 11:48-0400 Heart rate 81 /min Dr. Ysabel Ruffin MD Work Phone: [facility] 11-20-2024 11:48-0400 Respiratory rate 18 /min Dr. Ysabel Ruffin MD Work Phone: [facility] 11-20-2024 11:48-0400 SaO2% (BldA) [Mass fraction] 94 % Dr. Ysabel Ruffin MD Work Phone: [facility] 11-20-2024 11:48-0400 Systolic blood pressure 126 mm[Hg] Dr. Ysabel Ruffin MD Work Phone: [facility] 11-20-2024 10:48-0400 Body height 167.[address] Ysabel Ruffin MD Work Phone: [facility] 11-20-2024 10:48-0400 Inhaled oxygen flow rate 3 L/min Dr. Ysabel Ruffin MD Work Phone: [facility] 11-14-2024 07:36-0400 Body temperature 97.4 [degF] Dr. Ysabel Ruffin MD Work Phone: [facility] 11-14-2024 07:36-0400 Diastolic blood pressure 58 mm[Hg] Dr. Ysabel Ruffin MD Work Phone: [facility] 11-14-2024 07:36-0400 Heart rate 108 /min Dr. Ysabel Ruffin MD Work Phone: [facility] 11-14-2024 07:36-0400 Inhaled oxygen flow rate 3 L/min Dr. Ysabel Ruffin MD Work Phone: [facility] 11-14-2024 07:36-0400 Respiratory rate 18 /min Dr. Ysabel Ruffin MD Work Phone: [facility] 11-14-2024 07:36-0400 SaO2% (BldA) [Mass fraction] 97 % Dr. Ysabel Ruffin MD Work Phone: [facility] 11-14-2024 07:36-0400 Systolic blood pressure 114 mm[Hg] Dr. Ysabel Ruffin MD Work Phone: [facility] 08-28-2024 15:25-0500 Body mass index (BMI) [Ratio] 41.9 kg/m2 Dr. Ysabel Ruffin MD Work Phone: [facility] 08-28-2024 15:25-0500 Body temperature 96.5 [degF] Dr. Ysabel Ruffin MD Work Phone: [facility] 08-28-2024 15:25-0500 Body weight 117.[address] Ysabel Ruffin MD Work Phone: [facility] 08-28-2024 15:25-0500 Diastolic blood pressure 78 mm[Hg] Dr. Ysabel Ruffin MD Work Phone: [facility] 08-28-2024 15:25-0500 Heart rate 75 /min Dr. Ysabel Ruffin MD Work Phone: [facility] 08-28-2024 15:25-0500 Respiratory rate 18 /min Dr. Ysabel Ruffin MD Work Phone: [facility] 08-28-2024 15:25-0500 SaO2% (BldA) [Mass fraction] 99 % Dr. Ysabel Ruffin MD Work Phone: [facility] 08-28-2024 15:25-0500 Systolic blood pressure 118 mm[Hg] Dr. Ysabel Ruffin MD Work Phone: [facility] 08-15-2024 16:18-0500 Body temperature 98.2 [degF] Dr. Ysabel Ruffin MD Work Phone: [facility] 08-15-2024 16:18-0500 Diastolic blood pressure 70 mm[Hg] Dr. Ysabel Ruffin MD Work Phone: [facility] 08-15-2024 16:18-0500 Heart rate 61 /min Dr. Ysabel Ruffin MD Work Phone: [facility] 08-15-2024 16:18-0500 Inhaled oxygen flow rate 2 L/min Dr. Ysabel Ruffin MD Work Phone: [facility] 08-15-2024 16:18-0500 Respiratory rate 18 /min Dr. Ysabel Ruffin MD Work Phone: [facility] 08-15-2024 16:18-0500 SaO2% (BldA) [Mass fraction] 99 % Dr. Ysabel Ruffin MD Work Phone: [facility] 08-15-2024 16:18-0500 Systolic blood pressure 111 mm[Hg] Dr. Ysabel Ruffin MD Work Phone: [facility] 08-15-2024 05:41-0500 Body mass index (BMI) [Ratio] 46.6 kg/m2 Dr. Ysabel Ruffin MD Work Phone: [facility] 08-15-2024 05:41-0500 Body weight [address] Ysabel Ruffin MD Work Phone: [facility] 08-15-2024 00:10-0500 Inhaled oxygen concentration 30 % Dr. Ysabel Ruffin MD Work Phone: [facility] 07-02-2023 23:45-0500 Diastolic blood pressure 60 mm[facility]Hg[facility] 23:45-0500 Heart rate 68 /min [facility]. Hunt [facility] 07-02-2023 23:45-0500 Respiratory rate 18 /min Dr. Hunt [facility] 07-02-2023 23:45-0500 SaO2% (BldA) [Mass fraction] 96 % Dr. Hunt [facility] 07-02-2023 23:45-0500 Systolic blood pressure 122 mm[Hg[facility] 20:05-0500 Body height 167.[address] [facility]02[facility] 20:05-0500 Body mass index (BMI) [Ratio] 42.7 kg/m2 [facility] 07-02-2023 20:05-0500 Body temperature 97.5 [degF] [facility] 07-02-2023 20:05-0500 Body weight 120.[address] [facility] 07-02-2023 20:05-0500 Inhaled oxygen flow rate 3 L/min Dr. Marilee Yu [facility] 07-02-2023 14:46-0500 Body mass index (BMI) [Ratio] 46.3 kg/m2 Dr. Marilee Yu [facility] 07-02-2023 14:46-0500 Body temperature 98 [degF] Dr. Marilee Yu [place] 07-02-2023 14:46-0500 Body weight 130.[address] Marilee Yu [facility] 07-02-2023 14:46-0500 Diastolic blood pressure 70 mm[Hg] Dr. Marilee Yu [facility] 07-02-2023 14:46-0500 Heart rate 82 /[facility] 07-02-2023 14:46-0500 Respiratory rate 16 /[facility] 07-02-2023 14:46-0500 SaO2% (BldA) [Mass fraction] 97 % Dr. Hutn [facility] 07-02-2023 14:46-0500 Systolic blood pressure 112 mm[Hg] Dr. Marilee Yu [facility] 02-08-2023 00:14-0400 Diastolic blood pressure 71 mm[Hg] [facility] 02-08-2023 00:14-0400 Heart rate 70 /min [facility] 02-08-2023 00:14-0400 Respiratory rate 14 /min [facility] 02-08-2023 00:14-0400 SaO2% (BldA) [Mass fraction] 100 % [facility] 02-08-2023 00:14-0400 Systolic blood pressure 133 mm[Hg] [facility] 02-07-2023 22:10-0400 Inhaled oxygen flow rate 3 L/min [facility] 02-07-2023 22:06-0400 Body height 167.64 cm [facility] 02-07-2023 22:06-0400 Body mass index (BMI) [Ratio] 43.6 kg/m2 [facility] 02-07-2023 22:06-0400 Body temperature 96.5 [degF] [facility] 02-07-2023 22:06-0400 Body weight 122.7 kg [facility] 06-06-2022 14:11-0500 Heart rate 62 /min Dr. Alvarez Montanez Work Phone: [facility] Work Phone: 06-06-2022 14:11-0500 Respiratory rate 18 /min Dr. Alvarez Montanez Work Phone: [facility] Work Phone: 06-06-2022 14:00-0500 Body temperature 97.5 [degF] Dr. Alvarez Montanez Work Phone: [facility] Work Phone: 06-06-2022 14:00-0500 Diastolic blood pressure 68 mm[Hg] Dr. Alvarez Montanez Work Phone: [facility] Work Phone: 06-06-2022 14:00-0500 Heart rate 50 /min Dr. Alvarez Montanez Work Phone: [facility] Work Phone: 06-06-2022 14:00-0500 Respiratory rate 13 /min Dr. Alvarez Montanez Work Phone: [facility] Work Phone: 06-06-2022 14:00-0500 SaO2% (BldA) [Mass fraction] 100 % Dr. Alvarez Montanez Work Phone: [facility] Work Phone: 06-06-2022 14:00-0500 Systolic blood pressure 98 mm[Hg] Dr. Alvarez Montanez Work Phone: [facility] Work Phone: 06-06-2022 13:47-0500 Body temperature 97.6 [degF] Dr. Alvarez Montanez Work Phone: [facility] Work Phone: 06-06-2022 13:47-0500 Diastolic blood pressure 59 mm[Hg] Dr. Alvarez Montanez Work Phone: [facility] Work Phone: 06-06-2022 13:47-0500 Inhaled oxygen flow rate 2 L/min Dr. Alvarez Montanez Work Phone: [facility] Work Phone: 06-06-2022 13:47-0500 SaO2% (BldA) [Mass fraction] 98 % Dr. Alvarez Montanez Work Phone: [facility] Work Phone: 06-06-2022 13:47-0500 Systolic blood pressure 96 mm[Hg] Dr. Alvarez Montanez Work Phone: [facility] Work Phone: 06-06-2022 13:13-0500 Body height 167.[address] Alvarez Montanez Work Phone: [facility] Work Phone: 06-06-2022 13:13-0500 Body weight 116.[address] Alvarez Montanez Work Phone: [facility] Work Phone: 06-06-2022 02:57-0500 Body mass index (BMI) [Ratio] 41.4 kg/m2 Dr. Alvarez Montanez Work Phone: [facility] Work Phone: 06-06-2022 00:08-0500 Inhaled oxygen flow rate 2 L/min Dr. Alvarez Montanez Work Phone: [facility] Work Phone: 06-05-2022 20:06-0500 Body height 167.[address] Alvarez Montanez Work Phone: [facility] Work Phone: 06-05-2022 20:06-0500 Body mass index (BMI) [Ratio] 24.2 kg/m2 Dr. Alvarez Montanez Work Phone: [facility] Work Phone: 06-05-2022 20:06-0500 Body weight 68.[address] Alvarez Montanez Work Phone: [facility] Work Phone: 06-05-2022 15:00-0500 Body temperature 96 [degF] Dr. Alvarez Montanez Work Phone: [facility] Work Phone: 06-05-2022 15:00-0500 Body weight 114.[address] Alvarez Montanez Work Phone: [facility] Work Phone: 06-05-2022 15:00-0500 Diastolic blood pressure 78 mm[Hg] Dr. Alvarez Montanez Work Phone: [facility] Work Phone: 06-05-2022 15:00-0500 Heart rate 75 /min Dr. Alvarez Montanez Work Phone: [facility] Work Phone: 06-05-2022 15:00-0500 Respiratory rate 16 /min Dr. Alvarez Montanez Work Phone: [facility] Work Phone: 06-05-2022 15:00-0500 SaO2% (BldA) [Mass fraction] 99 % Dr. Alvarez Montanez Work Phone: [facility] Work Phone: 06-05-2022 15:00-0500 Systolic blood pressure 112 mm[Hg] Dr. Alvarez Montanez Work Phone: [facility] Work Phone: 04-01-2022 16:29-0400 Diastolic blood pressure 85 mm[Hg] Dr. Alvarez Montanez Work Phone: [facility] Work Phone: 04-01-2022 16:29-0400 Heart rate 80 /min Dr. Alvarez Montanez Work Phone: [facility] Work Phone: 04-01-2022 16:29-0400 Respiratory rate 17 /min Dr. Alvarez Montanez Work Phone: [facility] Work Phone: 04-01-2022 16:29-0400 Systolic blood pressure 124 mm[Hg] Dr. Alvarez Montanez Work Phone: [facility] Work Phone: 04-01-2022 14:58-0400 Inhaled oxygen flow rate 2 L/min Dr. Alvarez Montanez Work Phone: [facility] Work Phone: 04-01-2022 14:58-0400 SaO2% (BldA) [Mass fraction] 99 % Dr. Alvarez Montanez Work Phone: [facility] Work Phone: 04-01-2022 12:47-0400 Body height 167.[address] Alvarez Montanez Work Phone: [facility] Work Phone: 04-01-2022 12:47-0400 Body mass index (BMI) [Ratio] 40.6 kg/m2 Dr. Alvarez Montanez Work Phone: [facility] Work Phone: 04-01-2022 12:47-0400 Body temperature 98.3 [degF] Dr. Alvarez Montanez Work Phone: [facility] Work Phone: 04-01-2022 12:47-0400 Body weight 114.[address] Alvarez Montanez Work Phone: [facility] Work Phone: 03-19-2022 16:44-0400 Inhaled oxygen flow rate 3 L/min Dr. Alvarez Montanez Work Phone: [facility] Work Phone: 03-19-2022 16:44-0400 SaO2% (BldA) [Mass fraction] 98 % Dr. Alvarez Montanez Work Phone: [facility] Work Phone: 03-19-2022 14:28-0400 Body height 165.[address] Alvarez Montanez Work Phone: [facility] Work Phone: 03-19-2022 14:28-0400 Body mass index (BMI) [Ratio] 43.2 kg/m2 Dr. Alvarez Montanez Work Phone: [facility] Work Phone: 03-19-2022 14:28-0400 Body temperature 98.7 [degF] Dr. Alvarez Montanez Work Phone: [facility] Work Phone: 03-19-2022 14:28-0400 Body weight [address] Alvarez Montanez Work Phone: [facility] Work Phone: 03-19-2022 14:28-0400 Diastolic blood pressure 65 mm[Hg] Dr. Alvarez Montanez Work Phone: [facility] Work Phone: 03-19-2022 14:28-0400 Heart rate 65 /min Dr. Alvarez Montanez Work Phone: [facility] Work Phone: 03-19-2022 14:28-0400 Respiratory rate 18 /min Dr. Alvarez Montanez Work Phone: [facility] Work Phone: 03-19-2022 14:28-0400 Systolic blood pressure 117 mm[Hg] Dr. Alvarez Montanez Work Phone: [facility] Work Phone: 03-15-2022 17:02-0400 Body height 165.[address] Alvarez Montanez Work Phone: [facility] Work Phone: 03-15-2022 17:02-0400 Body mass index (BMI) [Ratio] 37.4 kg/m2 Dr. Alvarez Montanez Work Phone: [facility] Work Phone: 03-15-2022 17:02-0400 Body temperature 98.2 [degF] Dr. Alvarez Montanez Work Phone: [facility] Work Phone: 03-15-2022 17:02-0400 Body weight 102.[address] Alvarez Montanez Work Phone: [facility] Work Phone: 03-15-2022 17:02-0400 Diastolic blood pressure 86 mm[Hg] Dr. Alvarez Montanez Work Phone: [facility] Work Phone: 03-15-2022 17:02-0400 Heart rate 69 /min Dr. Alvarez Montanez Work Phone: [facility] Work Phone: 03-15-2022 17:02-0400 Inhaled oxygen flow rate 3 L/min Dr. Alvarez Montanez Work Phone: [facility] Work Phone: 03-15-2022 17:02-0400 Respiratory rate 14 /min Dr. Alvarez Montanez Work Phone: [facility] Work Phone: 03-15-2022 17:02-0400 SaO2% (BldA) [Mass fraction] 98 % Dr. Alvarez Montanez Work Phone: [facility] Work Phone: 03-15-2022 17:02-0400 Systolic blood pressure 120 mm[Hg] Dr. Alvarez Montanez Work Phone: [facility] Work Phone: 03-15-2022 15:16-0400 Body mass index (BMI) [Ratio] 36.3 kg/m2 Dr. Alvarez Montanez Work Phone: [facility] Work Phone: 03-15-2022 15:16-0400 Body temperature 97.7 [degF] Dr. Alvarez Montanez Work Phone: [facility] Work Phone: 03-15-2022 15:16-0400 Body weight 102.[address] Alvarez Montanez Work Phone: [facility] Work Phone: 03-15-2022 15:16-0400 Diastolic blood pressure 80 mm[Hg] Dr. Alvarez Montanez Work Phone: [facility] Work Phone: 03-15-2022 15:16-0400 Heart rate 70 /min Dr. Alvarez Montanez Work Phone: [facility] Work Phone: 03-15-2022 15:16-0400 Inhaled oxygen flow rate 3 L/min Dr. Alvarez Montanez Work Phone: [facility] Work Phone: 03-15-2022 15:16-0400 Respiratory rate 14 /min Dr. Alvarez Montanez Work Phone: [facility] Work Phone: 03-15-2022 15:16-0400 SaO2% (BldA) [Mass fraction] 99 % Dr. Alvarez Montanez Work Phone: [facility] Work Phone: 03-15-2022 15:16-0400 Systolic blood pressure 104 mm[Hg] Dr. Alvarez Montanez Work Phone: [facility] Work Phone: 03-06-2022 21:05-0400 Diastolic blood pressure 54 mm[Hg] Dr. Alvarez Montanez Work Phone: [facility] Work Phone: 03-06-2022 21:05-0400 Heart rate 68 /min Dr. Alvarez Montanez Work Phone: [facility] Work Phone: 03-06-2022 21:05-0400 Systolic blood pressure 121 mm[Hg] Dr. Alvarez Montanez Work Phone: [facility] Work Phone: 03-06-2022 18:27-0400 Inhaled oxygen flow rate 3 L/min Dr. Alvarez Montanez Work Phone: [facility] Work Phone: 03-06-2022 18:27-0400 Respiratory rate 24 /min Dr. Alvarez Montanez Work Phone: [facility] Work Phone: 03-06-2022 18:27-0400 SaO2% (BldA) [Mass fraction] 99 % Dr. Alvarez Montanez Work Phone: [facility] Work Phone: 03-06-2022 16:44-0400 Body height 167.[address] Alvarez Montanez Work Phone: [facility] Work Phone: 03-06-2022 16:44-0400 Body mass index (BMI) [Ratio] 36.3 kg/m2 Dr. Alvarez Montanez Work Phone: [facility] Work Phone: 03-06-2022 16:44-0400 Body temperature 97.8 [degF] Dr. Alvarez Montanez Work Phone: [facility] Work Phone: 03-06-2022 16:44-0400 Body weight 102.[address] Alvarez Montanez Work Phone: [facility] Work Phone: 02-20-2022 14:19-0400 Body temperature 96.8 [degF] Alvarez Montanez MD Work Phone: [facility] 02-20-2022 14:19-0400 Diastolic blood pressure 68 mm[Hg] Alvarez Montanez MD Work Phone: [facility] 02-20-2022 14:19-0400 Heart rate 68 /min Alvarez Montanez MD Work Phone: [facility] 02-20-2022 14:19-0400 Respiratory rate 20 /min Alvarez Montanez MD Work Phone: [facility] 02-20-2022 14:19-0400 SaO2% (BldA) [Mass fraction] 97 % Alvarez Montanez MD Work Phone: [facility] 02-20-2022 14:19-0400 Systolic blood pressure 106 mm[Hg] Alvarez Montanez MD Work Phone: [facility] 02-12-2022 17:55-0400 Diastolic blood pressure 76 mm[Hg] Dr. Alvarez Montanez Work Phone: [facility] Work Phone: 02-12-2022 17:55-0400 Heart rate 62 /min Dr. Alvarez Montanez Work Phone: [facility] Work Phone: 02-12-2022 17:55-0400 Respiratory rate 16 /min Dr. Alvarez Montanez Work Phone: [facility] Work Phone: 02-12-2022 17:55-0400 SaO2% (BldA) [Mass fraction] 99 % Dr. Alvarez Montanez Work Phone: [facility] Work Phone: 02-12-2022 17:55-0400 Systolic blood pressure 120 mm[Hg] Dr. Alvarez Montanez Work Phone: [facility] Work Phone: 02-12-2022 15:34-0400 Body height 165.[address] Alvarez Montanez Work Phone: [facility] Work Phone: 02-12-2022 15:34-0400 Body mass index (BMI) [Ratio] 43.2 kg/m2 Dr. Alvarez Montanez Work Phone: [facility] Work Phone: 02-12-2022 15:34-0400 Body temperature 97 [degF] Dr. Alvarez Montanez Work Phone: [facility] Work Phone: 02-12-2022 15:34-0400 Body weight 117.[address] Alvarez Montanez Work Phone: [facility] Work Phone: 02-12-2022 15:34-0400 Inhaled oxygen flow rate 3 L/min Dr. Alvarez Montanez Work Phone: [facility] Work Phone: 01-30-2022 18:45-0400 Body temperature 96.49 [degF] Alvarez Montanez MD Work Phone: [facility] 01-30-2022 18:45-0400 Diastolic blood pressure 82 mm[Hg] Alvarez Montanez MD Work Phone: [facility] 01-30-2022 18:45-0400 Heart rate 80 /min Alvarez Montanez MD Work Phone: [facility] 01-30-2022 18:45-0400 Respiratory rate 20 /min Alvarez Montanez MD Work Phone: [facility] 01-30-2022 18:45-0400 SaO2% (BldA) [Mass fraction] 100 % Alvarez Montanez MD Work Phone: [facility] 01-30-2022 18:45-0400 Systolic blood pressure 130 mm[Hg] Alvarez Montanez MD Work Phone: [facility] 01-19-2022 14:15-0400 Body temperature 97.8 [degF] Dr. Alvarez Montanez Work Phone: [facility] Work Phone: 01-19-2022 14:15-0400 Diastolic blood pressure 53 mm[Hg] Dr. Alvarez Montanez Work Phone: [facility] Work Phone: 01-19-2022 14:15-0400 Heart rate 67 /min Dr. Alvarez Montanez Work Phone: [facility] Work Phone: 01-19-2022 14:15-0400 Inhaled oxygen flow rate 2 L/min Dr. Alvarez Montanez Work Phone: [facility] Work Phone: 01-19-2022 14:15-0400 Respiratory rate 18 /min Dr. Alvarez Montanez Work Phone: [facility] Work Phone: 01-19-2022 14:15-0400 SaO2% (BldA) [Mass fraction] 97 % Dr. Alvarez Montanez Work Phone: [facility] Work Phone: 01-19-2022 14:15-0400 Systolic blood pressure 95 mm[Hg] Dr. Alvarez Montanez Work Phone: [facility] Work Phone: 01-19-2022 06:00-0400 Body weight 118.[address] Alvarez Montanez Work Phone: [facility] Work Phone: 01-18-2022 04:02-0400 Body height 165.[address] Alvarez Montanez Work Phone: [facility] Work Phone: 01-18-2022 04:02-0400 Body mass index (BMI) [Ratio] 42.8 kg/m2 Dr. Alvarez Montanez Work Phone: [facility] Work Phone: 01-18-2022 03:11-0400 Body temperature 97.7 [degF] Dr. Alvarez Montanez Work Phone: [facility] Work Phone: 01-18-2022 03:11-0400 Diastolic blood pressure 62 mm[Hg] Dr. Alvarez Montanez Work Phone: [facility] Work Phone: 01-18-2022 03:11-0400 Heart rate 55 /min Dr. Alvarez Montanez Work Phone: [facility] Work Phone: 01-18-2022 03:11-0400 Respiratory rate 18 /min Dr. Alvarez Montanez Work Phone: [facility] Work Phone: 01-18-2022 03:11-0400 SaO2% (BldA) [Mass fraction] 100 % Dr. Alvarez Montanez Work Phone: [facility] Work Phone: 01-18-2022 03:11-0400 Systolic blood pressure 119 mm[Hg] Dr. Alvarez Montanez Work Phone: [facility] Work Phone: 01-17-2022 23:34-0400 Body height 165.[address] Alvarez Montanez Work Phone: [facility] Work Phone: 01-17-2022 23:34-0400 Body mass index (BMI) [Ratio] 43.9 kg/m2 Dr. Alvarez Montanez Work Phone: [facility] Work Phone: 01-17-2022 23:34-0400 Body weight 119.[address] Alvarez Montanez Work Phone: [facility] Work Phone: 01-15-2022 22:06-0400 Diastolic blood pressure 71 mm[Hg] Dr. Alvarez Montanez Work Phone: [facility] Work Phone: 01-15-2022 22:06-0400 Heart rate 56 /min Dr. Alvarez Montanez Work Phone: [facility] Work Phone: 01-15-2022 22:06-0400 Respiratory rate 17 /min Dr. Alvarez Montanez Work Phone: [facility] Work Phone: 01-15-2022 22:06-0400 SaO2% (BldA) [Mass fraction] 99 % Dr. Alvarez Montanez Work Phone: [facility] Work Phone: 01-15-2022 22:06-0400 Systolic blood pressure 107 mm[Hg] Dr. Alvarez Montanez Work Phone: [facility] Work Phone: 01-15-2022 22:00-0400 Inhaled oxygen flow rate 2 L/min Dr. Alvarez Montanez Work Phone: [facility] Work Phone: 01-15-2022 19:01-0400 Body height 167.[address] Alvarez Montanez Work Phone: [facility] Work Phone: 01-15-2022 19:01-0400 Body mass index (BMI) [Ratio] 42.6 kg/m2 Dr. Alvarez Montanez Work Phone: [facility] Work Phone: 01-15-2022 19:01-0400 Body temperature 97.8 [degF] Dr. Alvarez Montanez Work Phone: [facility] Work Phone: 01-15-2022 19:01-0400 Body weight 119.[address] Alvarez Montanez Work Phone: [facility] Work Phone: 01-10-2022 22:33-0400 Diastolic blood pressure 76 mm[Hg] Dr. Alvarez Montanez Work Phone: [facility] Work Phone: 01-10-2022 22:33-0400 Heart rate 82 /min Dr. Alvarez Montanez Work Phone: [facility] Work Phone: 01-10-2022 22:33-0400 Respiratory rate 16 /min Dr. Alvarez Montanez Work Phone: [facility] Work Phone: 01-10-2022 22:33-0400 SaO2% (BldA) [Mass fraction] 98 % Dr. Alvarez Montanez Work Phone: [facility] Work Phone: 01-10-2022 22:33-0400 Systolic blood pressure 106 mm[Hg] Dr. Alvarez Montanez Work Phone: [facility] Work Phone: 01-10-2022 18:44-0400 Inhaled oxygen flow rate 2 L/min Dr. Alvarez Montanez Work Phone: [facility] Work Phone: 01-10-2022 17:30-0400 Body temperature 96.8 [degF] Dr. Alvarez Montanez Work Phone: [facility] Work Phone: 01-10-2022 17:28-0400 Body height 167.[address] Alvarez Montanez Work Phone: [facility] Work Phone: 01-10-2022 17:28-0400 Body mass index (BMI) [Ratio] 38.7 kg/m2 Dr. Alvarez Montanez Work Phone: [facility] Work Phone: 01-10-2022 17:28-0400 Body weight 108.[address] Alvarez Montanez Work Phone: [facility] Work Phone: 12-14-2021 15:02-0400 Body temperature 98.1 [degF] Dr. Alvarez Montanze Work Phone: [facility] Work Phone: 12-14-2021 15:02-0400 Diastolic blood pressure 68 mm[Hg] Dr. Alvarez Montanez Work Phone: [facility] Work Phone: 12-14-2021 15:02-0400 Heart rate 64 /min Dr. Alvarez Montanez Work Phone: [facility] Work Phone: 12-14-2021 15:02-0400 Respiratory rate 17 /min Dr. Alvarez Montanez Work Phone: [facility] Work Phone: 12-14-2021 15:02-0400 SaO2% (BldA) [Mass fraction] 99 % Dr. Alvarez Montanez Work Phone: [facility] Work Phone: 12-14-2021 15:02-0400 Systolic blood pressure 168 mm[Hg] Dr. Alvarez Montanez Work Phone: [facility] Work Phone: 12-14-2021 13:20-0400 Body height 165.[address] Alvarez Montanez Work Phone: [facility] Work Phone: 12-14-2021 13:20-0400 Body mass index (BMI) [Ratio] 39.9 kg/m2 Dr. Alvarez Montanez Work Phone: [facility] Work Phone: 12-14-2021 13:20-0400 Body weight 108.[address] Alvarez Montanez Work Phone: [facility] Work Phone: 12-14-2021 13:20-0400 Inhaled oxygen flow rate 3 L/min Dr. Alvarez Montanez Work Phone: [facility] Work Phone: 12-12-2021 15:38-0400 Body temperature 98.2 [degF] Dr. Alvarez Montanez Work Phone: [facility] Work Phone: 12-12-2021 15:38-0400 Diastolic blood pressure 90 mm[Hg] Dr. Alvarez Montanez Work Phone: [facility] Work Phone: 12-12-2021 15:38-0400 Heart rate 68 /min Dr. Alvarez Montanez Work Phone: [facility] Work Phone: 12-12-2021 15:38-0400 Respiratory rate 16 /min Dr. Alvarez Montanez Work Phone: [facility] Work Phone: 12-12-2021 15:38-0400 SaO2% (BldA) [Mass fraction] 97 % Dr. Alvarez Montanez Work Phone: [facility] Work Phone: 12-12-2021 15:38-0400 Systolic blood pressure 128 mm[Hg] Dr. Alvarez Montanez Work Phone: [facility] Work Phone: 12-12-2021 15:38-0400 Body temperature 98.2 [degF] Dr. Alvarez Montanez Work Phone: [facility] Work Phone: 12-12-2021 15:38-0400 Diastolic blood pressure 90 mm[Hg] Dr. Alvarez Montanez Work Phone: [facility] Work Phone: 12-12-2021 15:38-0400 Heart rate 68 /min Dr. Alvarez Montanez Work Phone: [facility] Work Phone: 12-12-2021 15:38-0400 Respiratory rate 16 /min Dr. Alvarez Montanez Work Phone: [facility] Work Phone: 12-12-2021 15:38-0400 SaO2% (BldA) [Mass fraction] 97 % Dr. Alvarez Montanez Work Phone: [facility] Work Phone: 12-12-2021 15:38-0400 Systolic blood pressure 128 mm[Hg] Dr. Alvarez Montanez Work Phone: [facility] Work Phone: 11-03-2021 20:54-0400 Diastolic blood pressure 69 mm[Hg] Dr. Alvarez Montanez Work Phone: [facility] Work Phone: 11-03-2021 20:54-0400 Heart rate 99 /min Dr. Alvarez Montanez Work Phone: [facility] Work Phone: 11-03-2021 20:54-0400 Respiratory rate 20 /min Dr. Alvarez Montanez Work Phone: [facility] Work Phone: 11-03-2021 20:54-0400 Systolic blood pressure 110 mm[Hg] Dr. Alvarez Montanez Work Phone: [facility] Work Phone: 11-03-2021 20:53-0400 SaO2% (BldA) [Mass fraction] 96 % Dr. Alvarez Montanez Work Phone: [facility] Work Phone: 11-03-2021 19:16-0400 Inhaled oxygen flow rate 2 L/min Dr. Alvarez Montanez Work Phone: [facility] Work Phone: 11-03-2021 17:19-0400 Body height 167.[address] Alvarez Montanez Work Phone: [facility] Work Phone: 11-03-2021 17:19-0400 Body mass index (BMI) [Ratio] 42.5 kg/m2 Dr. Alvarez Montanez Work Phone: [facility] Work Phone: 11-03-2021 17:19-0400 Body temperature 97.7 [degF] Dr. Alvarez Montanez Work Phone: [facility] Work Phone: 11-03-2021 17:19-0400 Body weight 119.[address] Alvarez Montanez Work Phone: [facility] Work Phone: 10-31-2021 08:47-0400 Body temperature 98.6 [degF] Dr. Alvarez Montanez Work Phone: [facility] Work Phone: 10-31-2021 08:47-0400 Diastolic blood pressure 78 mm[Hg] Dr. Alvarez Montanez Work Phone: [facility] Work Phone: 10-31-2021 08:47-0400 Heart rate 70 /min Dr. Alvarez Montanez Work Phone: [facility] Work Phone: 10-31-2021 08:47-0400 Respiratory rate 18 /min Dr. Alvarez Montanez Work Phone: [facility] Work Phone: 10-31-2021 08:47-0400 SaO2% (BldA) [Mass fraction] 96 % Dr. Alvarez Montanez Work Phone: [facility] Work Phone: 10-31-2021 08:47-0400 Systolic blood pressure 112 mm[Hg] Dr. Alvarez Montanez Work Phone: [facility] Work Phone: 10-31-2021 08:47-0400 Body temperature 98.6 [degF] Dr. Alvarez Montanez Work Phone: [facility] Work Phone: 10-31-2021 08:47-0400 Diastolic blood pressure 78 mm[Hg] Dr. Alvarez Montanez Work Phone: [facility] Work Phone: 10-31-2021 08:47-0400 Heart rate 70 /min Dr. Alvarez Montanez Work Phone: [facility] Work Phone: 10-31-2021 08:47-0400 Respiratory rate 18 /min Dr. Alvarez Montanez Work Phone: [facility] Work Phone: 10-31-2021 08:47-0400 SaO2% (BldA) [Mass fraction] 96 % Dr. Alvarez Montanez Work Phone: [facility] Work Phone: 10-31-2021 08:47-0400 Systolic blood pressure 112 mm[Hg] Dr. Alvarez Montanez Work Phone: [facility] Work Phone: 10-18-2021 13:09-0400 Body height 167.6 cm Chilo Matthew PA-C Work Phone: [facility] 10-18-2021 13:09-0400 Body temperature 96.91 [degF] Chilo Matthew PA-C Work Phone: [facility] 10-18-2021 13:09-0400 Body weight 113.4 kg Chilo Matthew PA-C Work Phone: [facility] 10-18-2021 13:09-0400 Diastolic blood pressure 70 mm[Hg] Chilo Matthew PA-C Work Phone: [facility] 10-18-2021 13:09-0400 Heart rate 66 /min Chilo Matthew PA-C Work Phone: [facility] 10-18-2021 13:09-0400 Respiratory rate 14 /min Chilo Matthew PA-C Work Phone: [facility] 10-18-2021 13:09-0400 SaO2% (BldA) [Mass fraction] 99 % Chilo Matthew PA-C Work Phone: [facility] 10-18-2021 13:09-0400 Systolic blood pressure 98 mm[Hg] Chilo Matthew PA-C Work Phone: [facility] 09-22-2021 21:44-0500 Diastolic blood pressure 60 mm[Hg] Dr. Alvarez Montanez Work Phone: [facility] Work Phone: 09-22-2021 21:44-0500 Heart rate 78 /min Dr. Alvarez Montanez Work Phone: [facility] Work Phone: 09-22-2021 21:44-0500 Respiratory rate 16 /min Dr. Alvarez Montanez Work Phone: [facility] Work Phone: 09-22-2021 21:44-0500 Systolic blood pressure 110 mm[Hg] Dr. Alvarez Montanez Work Phone: [facility] Work Phone: 09-22-2021 20:44-0500 Diastolic blood pressure 60 mm[Hg] Dr. Alvarez Montanez Work Phone: [facility] Work Phone: 09-22-2021 20:44-0500 Heart rate 78 /min Dr. Alvarez Montanez Work Phone: [facility] Work Phone: 09-22-2021 20:44-0500 Respiratory rate 16 /min Dr. Alvarez Montanez Work Phone: [facility] Work Phone: 09-22-2021 20:44-0500 Systolic blood pressure 110 mm[Hg] Dr. Alvarez Montanez Work Phone: [facility] Work Phone: 09-22-2021 18:06-0500 Body temperature 96.8 [degF] Dr. Alvarez Montanez Work Phone: [facility] Work Phone: 09-22-2021 18:06-0500 SaO2% (BldA) [Mass fraction] 98 % Dr. Alvarez Montanez Work Phone: [facility] Work Phone: 09-22-2021 18:04-0500 Body mass index (BMI) [Ratio] 38.7 kg/m2 Dr. Alvarez Montanez Work Phone: [facility] Work Phone: 09-22-2021 18:04-0500 Body weight 108.[address] Alvarez Montanez Work Phone: [facility] Work Phone: 09-22-2021 17:06-0500 Body temperature 96.8 [degF] Dr. Alvarez Montanez Work Phone: [facility] Work Phone: 09-22-2021 17:06-0500 SaO2% (BldA) [Mass fraction] 98 % Dr. Alvarez Montanez Work Phone: [facility] Work Phone: 09-22-2021 17:04-0500 Body height 167.[address] Alvarez Montanez Work Phone: [facility] Work Phone: 09-22-2021 17:04-0500 Body mass index (BMI) [Ratio] 38.7 kg/m2 Dr. Alvarez Montanez Work Phone: [facility] Work Phone: 09-22-2021 17:04-0500 Body weight 108.[address] Alvarez Montanez Work Phone: [facility] Work Phone: 08-31-2021 10:58-0500 Body temperature 98.3 [degF] Dr. Alvarez Montanez Work Phone: [facility] Work Phone: 08-31-2021 10:58-0500 Diastolic blood pressure 81 mm[Hg] Dr. Alvarez Montanez Work Phone: [facility] Work Phone: 08-31-2021 10:58-0500 Heart rate 62 /min Dr. Alvarez Montanez Work Phone: [facility] Work Phone: 08-31-2021 10:58-0500 Respiratory rate 16 /min Dr. Alvarez Montanez Work Phone: [facility] Work Phone: 08-31-2021 10:58-0500 SaO2% (BldA) [Mass fraction] 99 % Dr. Alvarez Montanez Work Phone: [facility] Work Phone: 08-31-2021 10:58-0500 Systolic blood pressure 118 mm[Hg] Dr. Alvarez Montanez Work Phone: [facility] Work Phone: 08-31-2021 04:48-0500 Body weight [address] Alvarez Montanez Work Phone: [facility] Work Phone: 08-29-2021 08:33-0500 Body mass index (BMI) [Ratio] 41.7 kg/m2 Dr. Alvarez Montanez Work Phone: [facility] Work Phone: 08-18-2021 12:37-0500 Diastolic blood pressure 85 mm[Hg] Dr. Alvarez Montanez Work Phone: [facility] Work Phone: 08-18-2021 12:37-0500 Heart rate 66 /min Dr. Alvarez Montanez Work Phone: [facility] Work Phone: 08-18-2021 12:37-0500 Respiratory rate 19 /min Dr. Alvarez Montanez Work Phone: [facility] Work Phone: 08-18-2021 12:37-0500 SaO2% (BldA) [Mass fraction] 96 % Dr. Alvarez Montanez Work Phone: [facility] Work Phone: 08-18-2021 12:37-0500 Systolic blood pressure 118 mm[Hg] Dr. Alvarez Montanez Work Phone: [facility] Work Phone: 08-18-2021 09:55-0500 Body mass index (BMI) [Ratio] 42.4 kg/m2 Dr. Alvarez Montanez Work Phone: [facility] Work Phone: 08-18-2021 09:55-0500 Body temperature 98.1 [degF] Dr. Alvarez Montanez Work Phone: [facility] Work Phone: 08-18-2021 09:55-0500 Body weight 119.[address] Alvarez Montanez Work Phone: [facility] Work Phone: 07-22-2021 09:40-0500 Body mass index (BMI) [Ratio] 33.3 kg/m2 Dr. Alvarez Montanez Work Phone: [facility] Work Phone: 07-22-2021 09:40-0500 Body temperature 98.4 [degF] Dr. Alvarez Montanez Work Phone: [facility] Work Phone: 07-22-2021 09:40-0500 Body weight 90.[address] Alvarez Montanez Work Phone: [facility] Work Phone: 07-22-2021 09:40-0500 Diastolic blood pressure 97 mm[Hg] Dr. Alvarez Montanez Work Phone: [facility] Work Phone: 07-22-2021 09:40-0500 Heart rate 102 /min Dr. Alvarez Montanez Work Phone: [facility] Work Phone: 07-22-2021 09:40-0500 Respiratory rate 16 /min Dr. Alvarez Montanez Work Phone: [facility] Work Phone: 07-22-2021 09:40-0500 SaO2% (BldA) [Mass fraction] 99 % Dr. Alvarez Montanez Work Phone: [facility] Work Phone: 07-22-2021 09:40-0500 Systolic blood pressure 134 mm[Hg] Dr. Alvarez Montanez Work Phone: [facility] Work Phone: 05-09-2017 05:49-0400 BMI (Body Mass Index) 49.22 kg/m2 Yolanda Skinner [facility] Work Phone: 05-09-2017 05:49-0400 Body Temperature 97.5 [degF] [facility]anda Skinner [facility] [place] Work Phone: 05-09-2017 05:49-0400 BP Diastolic 106 mm[Hg] Yolanda Skinner [facility] [place] Work Phone: 05-09-2017 05:49-0400 BP Systolic 140 mm[Hg] Yolanda Skinner [facility] [place] Work Phone: 05-09-2017 05:49-0400 Height 167.64 cm Yolanda Skinner [facility] [place] Work Phone: 05-09-2017 05:49-0400 Pulse (Heart Rate) 98 /min Yolanda Skinner [facility] [place] Work Phone: 05-09-2017 05:49-0400 Respiratory Rate 18 /min Yolanda Skinner [facility] [place] Work Phone: 05-09-2017 05:49-0400 Weight 138.35 kg Yolanda Skinner [facility] [place] Work Phone: 03-29-2017 06:30-0400 BMI (Body Mass Index) 50.51 kg/m2 Alba Cedeno [facility] [place] Work Phone: 03-29-2017 06:30-0400 Body Temperature 98.2 [degF] Alba Cedeno [facility] [place] Work Phone: 03-29-2017 06:30-0400 BP Diastolic 82 mm[Hg] Alba Cedeno [facility] [place] Work Phone: 03-29-2017 06:30-0400 BP Systolic 156 mm[Hg] Alba Cedeno [facility] [place] Work Phone: 03-29-2017 06:30-0400 Height 167.64 cm Alba York [facility] [place] Work Phone: 03-29-2017 06:30-0400 Pulse (Heart Rate) 80 /min Alba York [facility] [place] Work Phone: 03-29-2017 06:30-0400 Respiratory Rate 18 /min Alba York [facility] [place] Work Phone: 03-29-2017 06:30-0400 Weight 141.98 kg Alba Cedeno [facility] [place] Work Phone: 01-18-2017 15:05-0400 Heart rate 82 /min Harumi DeFinis [facility] Work Phone: 01-18-2017 14:48-0400 BMI (Body Mass Index) 47.12 kg/m2 Get Christianson DO [facility] [place] Work Phone: 01-18-2017 14:48-0400 BP Diastolic 84 mm[Hg] Get Christianson DO [facility] [place] Work Phone: 01-18-2017 14:48-0400 BP Systolic 126 mm[Hg] Get Brown DO [facility] [place] Work Phone: 01-18-2017 14:48-0400 Height 167.64 cm Get Brown DO [facility] [place] Work Phone: 01-18-2017 14:48-0400 Pulse (Heart Rate) 84 /min Get Christianson DO [facility] [place] Work Phone: 01-18-2017 14:48-0400 Respiratory Rate 18 /min Get Christianson DO [facility] [place] Work Phone: 01-18-2017 14:48-0400 Weight 132.45 kg Get Christianson DO [facility] [place] Work Phone: 01-02-2017 06:51-0400 BMI (Body Mass Index) 48.58 kg/m2 [facility] [place] Work Phone: 01-02-2017 06:51-0400 Body Temperature 97.3 [degF] [facility] [place] Work Phone: 01-02-2017 06:51-0400 BP Diastolic 87 mm[Hg] [facility] [place] Work Phone: 01-02-2017 06:51-0400 BP Systolic 130 mm[Hg] [facility] [place] Work Phone: 01-02-2017 06:51-0400 Height 167.64 cm [facility] [place] Work Phone: 01-02-2017 06:51-0400 Inhaled O2 3 [facility] [place] [facility] [place] Work Phone: 01-02-2017 06:51-0400 Pulse (Heart Rate) 70 /min [facility] [place] Work Phone: 01-02-2017 06:51-0400 Pulse Oximetry 96 % [facility] [place] Work Phone: 01-02-2017 06:51-0400 Respiratory Rate 20 /min Alba [facility] [place] Work Phone: 01-02-2017 06:51-0400 Weight 136.53 kg [facility] [place] Work Phone: 10-19-2016 14:15-0400 BMI (Body Mass Index) 45.83 kg/m2 [facility] [place] Work Phone: 10-19-2016 14:15-0400 Body Temperature 98.1 [degF] [facility] [place] Work Phone: 10-19-2016 14:15-0400 BP Diastolic 92 mm[Hg] [facility] [place] Work Phone: 10-19-2016 14:15-0400 BP Systolic 141 mm[Hg] [facility] [place] Work Phone: 10-19-2016 14:15-0400 Height 167.64 cm [facility] [place] Work Phone: 10-19-2016 14:15-0400 Inhaled O2 3 [facility] [place] Work Phone: 10-19-2016 14:15-0400 Pulse (Heart Rate) 103 /min [facility] [place] Work Phone: 10-19-2016 14:15-0400 Pulse Oximetry 97 % [facility] [place] [facility] [place] Work Phone: 10-19-2016 14:15-0400 Respiratory Rate 18 /min [facility] [place] Work Phone: 10-19-2016 14:15-0400 Weight 128.82 kg [facility] [place] Work Phone: Encounters Encounter Date Encounter Type Care Provider Facility Start: 01-14-2025 Non-patient / Non-visit Dr. Ysabel Ruffin MD -[facility] Start: 01-14-[address] Ysabel larson MD Work Phone: [facility] Work Phone: Start: 01-08-2025 End: 01-08-[address] Ysabel Ruffin MD Work Phone: [facility] Work Phone: Start: 01-08-2025 End: 01-08-[address] Ysabel Ruffin MD -Ultrasound [facility] Work Phone: Start: 01-08-2025 End: 01-08-[address] Chapincito Castro MD -[facility] Work Phone: Start: 01-08-2025 End: 01-08-[address] Ysabel Ruffin MD Work Phone: [facility] Work Phone: Start: 01-08-2025 End: 01-08-2025 ambulatory Ysabel Ruffin Facility:[facility] Start: 12-29-2024 End: 12-29-[address] Ysabel Ruffin MD -[facility] Work Phone: Start: 12-29-2024 End: 12-29-[address] Ysabel Ruffin MD Work Phone: [facility] Work Phone: Start: 12-29-2024 End: 12-29-2024 ambulatory Ysabel Ruffin Facility:[facility] Start: 11-20-2024 End: 11-20-2024 Dr. [facility]: Start: 11-20-2024 End: 11-20-2024 Emergency department patient visit Dr. Callum Knutson MD -Emergency Department Work Phone: Start: 11-14-2024 End: 11-14-2024 Patient encounter procedure Oli NdiayeCat Scan [facility] Work Phone: Start: 11-14-2024 End: 11-14-2024 Oli NdiayeCat Scan, [facility] Work Phone: Start: 11-14-2024 End: 11-14-2024 Patient encounter procedure Oli HART -[facility] Work Phone: Start: 11-14-2024 End: 11-14-2024 Oli HART [facility] Work Phone: Start: 11-14-2024 End: 11-14-2024 ambulatory Ysabel Laly Facility:[facility] Start: 11-14-2024 End: 11-14-2024 ambulatory Ysabel Laly Facility:[facility] Start: 09-01-2024 End: 09-01-[address] Luke Tirado MD -Laboratory [place] Work Phone: Start: 09-01-2024 End: 09-01-2024 Dr. Luke Tirado MD -Laboratory, [place] Work Phone: Start: 09-01-2024 End: 09-01-2024 ambulatory Ysabel [place] Facility:[facility] Start: 08-28-2024 End: 08-28-2024 Oli HART [facility] Work Phone: Start: 08-28-2024 End: 08-28-2024 ambulatory Ysabel [place] Facility:[facility] Start: 08-15-2024 Dr. Alexander Ye MD [facility] Work Phone: Start: 08-14-2024 Dr. Alexander Ye MD - [facility] Work Phone: Start: 08-13-2024 ambulatory Ysabel Laly Facility :[facility] Start: 08-13-2024 Dr. Nick Romano MD -[facility] Work Phone: Start: 08-12-2024 ambulatory Ysabel Laly Facility :[facility] Start: 08-12-2024 End: 08-15-2024 Evaluation and management of inpatient Ysabel [place] Facility:[facility] Start: 08-12-2024 End: 08-15-2024 Dr. Alexander Ye MD -[facility] Work Phone: Start: 08-05-2024 ambulatory Ysabel [place] Facility :[facility] Start: 07-26-2024 End: 07-26-2024 Letter encounter Imani Geiger MD Work Phone: [facility] Start: 07-21-2024 End: 07-21-2024 ambulatory Ysabel [place] Facility:[facility] Start: 06-26-2024 End: 06-26-2024 ambulatory Ysabel [place] Facility:[facility] Start: 06-23-2024 ambulatory Ysabel Laly Facility :[facility] Start: 06-22-2024 End: 06-23-2024 [facility] Start: 04-28-2024 ambulatory Ysabel Laly Facility :[facility] Start: 03-17-2024 End: 03-17-2024 ambulatory Ysabel Laly Facility:[facility] Start: 01-07-2024 ambulatory Demario Martinez RN [facility] Comment on above: Community Monitoring Outreach Start: 11-16-2023 ambulatory Demario Martinez RN [facility] Comment on above: Community Monitoring Outreach Start: 11-02-2023 Documentation procedure Mammography Coordinator [facility] Start: 11-02-2023 Letter encounter Mammography Coordinator [facility] Department Start: 11-01-2023 End: 11-01-2023 ambulatory LORIE MONTANEZ Facility:[facility] Start: 11-01-2023 End: 11-01-2023 [facility] Start: 11-01-2023 End: 11-01-2023 Subsequent hospital visit by physician Screen Mammo [facility] M[facility] Start: 10-15-2023 ambulatory Demario Martinez RN [facility] Comment on above: Community Monitoring Outreach Start: 10-13-2023 ambulatory Andria estrella LPN [facility] [place] Start: 09-13-2023 ambulatory Demario Martinez RN [facility] Comment on above: Community Monitoring Outreach Start: 07-02-2023 End: 07-03-2023 Emergency department patient visit Dr. Marilee Yu [facility]-Emergency Department Work Phone: Start: 07-02-2023 End: 07-02-[address] Marilee Yu [facility] Work Phone: Start: 05-24-2023 ambulatory Demario Martinez RN [facility] Comment on above: Community Monitoring Outreach Start: 02-22-2023 ambulatory Demario Martinez RN [facility] Comment on above: Community Monitoring Outreach Start: 02-07-2023 End: 02-08-2023 Emergency department patient visit [facility]Emergency Department Work Phone: Start: 02-05-2023 End: 02-05-2023 ambulatory [facility] Work Phone: Start: 02-05-2023 End: 02-05-2023 Patient encounter procedure [facility]-Laboratory, Specimen Work Phone: Start: 08-09-2022 ambulatory [facility] Start: 08-09-2022 End: 08-09-2022 Telemedicine consultation with patient Tom Montelongo MD Work Phone: [facility] Psychiatry Comment on above: NO SHOW (Primary Dx) Start: 07-24-2022 Refill Alvarez crow MD Work Phone: [facility] [place] Comment on above: Refill Request Start: 06-27-2022 Refill Alvarez crow MD Work Phone: [facility] [place] Comment on above: Refill Request Start: 06-21-2022 ambulatory UNKNOWN PROVIDER Facili [facility] Start: 06-06-2022 End: 06-06-2022 Evaluation and management of inpatient Dr. Alvarez Montanez Work Phone: [facility]-Progressive Care Unit Start: 06-06-2022 Non-patient / Non-visit Dr. Alvarez Montanez Work Phone: [facility] In[facility]icians Start: 06-06-[address] Melissa Montanez Work Phone: [facility] Work Phone: Start: 06-05-2022 End: 06-05-[address] Alvarez Montanez Work Phone: [facility] Work Phone: Start: 06-05-2022 End: 06-05-[address] Alvarez Montanez Work Phone: [facility] Internal Medicine Start: 05-24-2022 Refill Alvarez crow MD Work Phone: [facility] [place] Comment on above: Refill Request Start: 05-10-2022 End: 05-10-2022 Phys/qhp telephone evaluation 11-20 min Tom Montelongo MD Work Phone: [facility] Comment on above: Anxiety; Major depressive disorder, recurrent episode with anxious distress (HCC) Start: 05-10-2022 End: 05-10-2022 Telemedicine consultation with patient Tom Montelongo MD Work Phone: [facility] Comment on above: Anxiety; Major depressive disorder, recurrent episode with anxious distress (HCC) Start: 05-01-[address] Al[facility]ane[facility] Start: 05-01-2022 End: 05-01-[address] Alvarez Montanez Work Phone: [facility]-Laboratory, Specimen Start: 04-24-2022 Letter encounter Imani avila MD Work Phone: [facility] Start: 04-01-2022 End: 04-01-2022 Emergency department patient visit Dr. Alvarez Montanez Work Phone: [facility]-Emergency Department Start: 03-30-2022 Refill Judy shah DO Work Phone: [facility] Family Medicine Comment on above: Refill Start: 03-19-2022 End: 03-19-2022 Emergency department patient visit Dr. Alvarez Montanez Work Phone: [facility]Emergency Department Start: 03-16-2022 Non-patient / Non-visit Dr. Alvarez Montanez Work Phone: [facility] Start: 03-15-2022 End: 03-15-2022 Emergency department patient visit Dr. Alvarez Montane[facility] Start: 03-15-2022 End: 03-15-[address] Alvarez Montanez Work Phone: [facility] Internal Medicine Start: 03-13-2022 Refill Judy shah DO Work Phone: [facility] Comment on above: Refill Start: 03-13-2022 Telephone encounter Alvarez briscoe MD Work Phone: [facility] [place] Comment on above: Palliative Care Start: 03-06-2022 End: 03-06-2022 Emergency department patient visit Dr. [facility]varez Montane[facility] Start: 02-20-2022 Documentation procedure Mammography Coordinator [facility] Start: 02-20-2022 Letter encounter Mammography Coordinator [facility] Department Start: 02-20-2022 End: 02-20-2022 Patient encounter procedure Alvarez Montanez MD Work Phone: [facility] [place] Comment on above: Left leg pain (Prima ry Dx); History of DVT of lower extremity; Anemia, unspecified type; Chronic pain syndrome; History of pulmonary embolism Start: 02-20-2022 End: 02-20-2022 Subsequent hospital visit by physician Screen Mammo [facility] Mamm[facility] Comment on above: Obesity, Class III, BMI 40-49.9 (morbid obesity) ([facility]) [E66.01] Start: 02-16-2022 Telephone encounter Alvarez briscoe MD Work Phone: [facility] [place] Comment on above: Results Start: 02-12-2022 End: 02-12-2022 Emergency department patient visit Dr. Alvarez Montanez Work Phone: [facility]-Emergency Department Start: 02-08-2022 End: 02-08-2022 Phys/qhp telephone evaluation 21-30 min Tom Montelongo MD Work Phone: [facility] Comment on above: Major depressive dis order, recurrent episode with anxious distress (HCC) (Primary Dx); Anxiety; Panic disorder with agoraphobia; Bereavement Start: 02-08-2022 ambulatory UNKNOWN PROVIDER Facili ty:[facility] Start: 01-30-2022 End: 01-30-2022 Patient encounter procedure Alvarez Montanez MD Work Phone: [facility] [place] Comment on above: Closed head injury, sequela (Primary Dx); Concussion without loss of consciousness, sequela (HCC); Anemia due to blood loss; Arvind-Christine syndrome with action induced myoclonus; Failure to thrive in adult; Falls frequently; Epistaxis; Chronic pain syndrome; Chronic respiratory failure with hypoxia (HCC) Start: 01-24-2022 Patient Outreach Alvarez diehl MD Work Phone: [facility] [place] Comment on above: Transition Of Care Start: 01-19-2022 Non-patient / Non-visit Dr. Alvarez Montanez Work Phone: [facility] Inpatient Physicians Start: 01-18-2022 Telephone encounter Alvarez briscoe MD Work Phone: [facility] [place] Comment on above: Refill Request Start: 01-18-2022 End: 01-19-2022 Evaluation and management of inpatient Dr. Alvarez Montanez Work Phone: [facility]-Progressive Care Unit Start: 01-16-2022 ambulatory Juan Marti RN [facility] Comment on above: Community Monitoring Outreach (COPD CDM Enrollment ) Start: 01-15-2022 End: 01-15-2022 Emergency department patient visit Dr. Alvarez Montanez Work Phone: [facility]-Emergency Department Start: 01-11-2022 Refill Judy shah DO Work Phone: [facility] Family Medicine Comment on above: Refill Start: 01-10-2022 End: 01-10-2022 Emergency department patient visit Dr. Alvarez Montanez [facility] Start: 12-26-2021 ambulatory Juan Marti RN [facility] Comment on above: Community Monitoring Outreach ([facility] ED UTI / CDM Outreach) Start: 12-14-2021 End: 12-14-2021 Emergency department patient visit Dr. Alvarez Montanez [facility] Start: 12-12-2021 End: 12-12-[address] Alvarez Montanez Work Phone: [facility] Start: 11-23-2021 ambulatory Juan Marti RN [facility] Comment on above: Community Monitoring Outreach (COPD CDM Outreach) Start: 11-03-2021 End: 11-03-2021 Emergency department patient visit Dr. Alvarez Montanez [facility] Start: 11-02-2021 ambulatory UNKNOWN PROVIDER Facili ty:[facility] Start: 10-31-2021 End: 10-31-[address] Alvarez Montanez Work Phone: [facility] Neurology Start: 10-26-2021 End: 10-26-2021 Subsequent hospital visit by physician [facility] (I-Stat) Work Phone: Cat Scan Comment on above: Gross hematuria [R31 .0] Start: 10-26-2021 Telephone encounter Chilo graves PA-C Work Phone: Urology Comment on above: Results Start: 10-26-2021 End: 10-26-[address] Alvarez Montanez Work Phone: [facility] Start: 10-24-2021 Refill Alvarez crow MD Work Phone: [facility] [place] Comment on above: Refill Request Start: 10-18-2021 Telephone encounter Ronal Pereyra MD Work Phone: [facility] Comment on above: Appointment Start: 10-18-2021 End: 10-18-2021 Patient encounter procedure Chilo Matthew PA-C Work Phone: Urology Comment on above: Gross hematuria (Kinza deion Dx); Recurrent UTI Start: 10-17-2021 End: 10-17-[address] Alvarez Montanez Work Phone: [facility] Start: 10-13-2021 Telephone encounter Alvarez briscoe MD Work Phone: [facility] [place] Comment on above: FYI: Discharged toda y Start: 10-10-2021 End: 10-10-[address] Alvarez Montanez Work Phone: [facility]-Laboratory Start: 10-10-2021 End: 10-10-[address] Alvarez Montanez Work Phone: [facility] Gastroenterology Start: 09-22-2021 End: 09-22-2021 Emergency department patient visit Dr. Alvarez Montanez Work Phone: [facility]-Emergency Department Start: 09-22-2021 End: 09-22-[address] Alvarez Montanez Work Phone: [facility] Gastroenterology Start: 09-15-2021 End: 09-15-[address] Alvarez Montanez Work Phone: [facility]-Laboratory Start: 09-15-2021 End: 09-15-[address] Alvarez Montanez Work Phone: [facility] Gastroenterology Start: 08-31-2021 Non-patient / Non-visit Dr. Alvarez Montanez Work Phone: [phone] [place] [address] Inpatient Physicians Start: 08-30-2021 Non-patient / Non-visit Dr. Alvarez Montanez Work Phone: [facility] Inpatient Physicians Start: 08-29-2021 Non-patient / Non-visit Dr. Alvarez Montanez Work Phone: [facility] Start: 08-29-2021 Non-patient / Non-visit Dr. Alvarez Montanez Work Phone: [facility] Inpatient Physicians Start: 08-28-2021 Non-patient / Non-visit Dr. Alvarez Montanez Work Phone: [facility] Start: 08-28-2021 Non-patient / Non-visit Dr. Alvarez Montanez Work Phone: [phone] [place] [address] Inpatient Physicians Start: 08-27-2021 Non-patient / Non-visit Dr. Alvarez Montanez Work Phone: [facility] Inpatient Physicians Start: 08-27-2021 Non-patient / Non-visit Dr. Alvarez Montanez Work Phone: [facility] Start: 08-26-2021 Non-patient / Non-visit Dr. Alvarez Montanez Work Phone: [facility] Inpatient Physicians Start: 08-26-2021 End: 08-31-2021 Evaluation and management of inpatient Dr. Alvarez Montanez Work Phone: [facility]-Medical Surgical 3 Start: 08-18-2021 End: 08-18-2021 Emergency department patient visit Dr. Alvarez Montanez Work Phone: [facility]-Emergency Department Start: 07-22-2021 End: 07-22-2021 Emergency department patient visit Dr. Alvarez Montanez Work Phone: [facility]-Emergency Department Start: 06-22-2021 Telephone encounter Alvarez briscoe MD Work Phone: [facility] [place] Comment on above: Patient Update Start: 03-14-2017 End: 03-14-2017 Ambulatory [facility] Procedures Date Procedure Procedure Detail Performing Clinician Start: 01-08-2025 Complete ultrasound of kidneys and bladder Dr. Ysabel Ruffin MD Work Phone: Start: 12-29-[address] Ysabel Ruffin MD Work Phone: Start: 12-29-[address] Ysabel Ruffin MD Work Phone: Comment on above: No monoclonality detected.Performed at: [place] [id number] Director: Eliseo Yañez PhD, Phone: [phone] Start: 12-29-2024 Urnls dip stick/tablet reagent auto [...] Lipid 1996 panel - Serum or Plasma Demairo Martinez RN Start: 11-23-2020 Mammography Alvarez Montanez MD Work Phone: Start: 05-09-2017 End: 05-09-2017 Dietary management education, guidance, and counseling Latoya Almonte LPN Start: 03-29-2017 End: 03-30-2017 DMB Carlota Gregorio CNP Work Phone: Start: 03-29-2017 End: 03-30-2017 Follow Up Appt 1 month Carlota Gregorio CNP Work Phone: Start: 03-29-2017 End: 03-30-2017 Pulmonary stress test/simple Carlota Gregorio PRINTING WORKER SUPERVISOR Work Phone: Start: 03-29-2017 End: 03-29-2017 Dietary [...] MD Start: 01-02-2017 End: 01-03-2017 Referral to firestopper installer Get Guillory [employer] Work Phone: Start: 01-02-2017 End: 01-30-2017 Referral to firestopper installer [employer] Work Phone: Start: 11-10-2016 End: 12-15-2016 Pulmonary Function Test - complete Carlota Rachel Darline PRINTING WORKER SUPERVISOR Work Phone: Start: 11-10-2016 End: 12-15-2016 Pulmonary Function Test - complete Carlota Gregorio PRINTING WORKER SUPERVISOR Work Phone: Start: 10-27-2016 End: 12-15-2016 *MISC - Miscellaneous Lab Test #1 Ba Shea PORTABLE ROUTER OPERATOR Work Phone: Start: 10-27-2016 End: 12-15-2016 *MISC - Miscellaneous Lab Test #1 Ba Shea PORTABLE ROUTER OPERATOR Work Phone: Start: 10-19-2016 End: 04-06-2017 DMB Arin Shea PORTABLE ROUTER OPERATOR Work Phone: Start: 10-19-2016 End: 04-06-2017 Echo tthrc r-t 2d w/wom-mode compl spec&colr d Arin Shea PORTABLE ROUTER OPERATOR Work Phone: Start: 10-19-2016 End: 04-06-2017 Follow Up Appt 1 month Arin Shea PORTABLE ROUTER OPERATOR Work Phone: Start: 10-19-2016 End: 04-06-2017 Pulmonary stress test/simple Arin cardona PORTABLE ROUTER OPERATOR Work Phone: Start: 10-19-2016 End: 12-15-2016 Pulmonary stress test/simple Arin cardona PORTABLE ROUTER OPERATOR Work Phone: Bacteria identified in Blood [...] Screening for malign ant neoplasm of colon [facility] Start: 08-30-2026 Colonoscopy COLONOSCOPY [facility] Start: 08-30-2026 COLORECTAL CANCER SCREENING COLORECTAL CANCER SCREENING [facility] Start: 08-30-2026 Screening for malign ant neoplasm of colon [facility] Start: 12-20-2025 Tetanus vaccination Tetanus (T d or Tdap) Booster [facility] Start: 12-20-2025 Urine microalbumin profile [facility] Start: 11-23-2025 Lipid 1996 panel - S elisha or Plasma Lipid Screening [facility] Start: 11-23-2025 Lipid panel [facility] Start: 11-23-2025 LIPID SCREEN LIPID SCREEN [facility] Start: 01-14-2025 Patient referral [facility] Work Phone: Start: 12-29-2024 CBC W Auto Different ial panel - Blood [facility] Start: 12-29-2024 Comprehensive metabo lic 2000 panel - Serum or Plasma [facility] Start: 12-29-2024 Thyroid stimulating hormone measurement [facility] Start: 12-29-2024 Vitamin D, 25-hydrox y measurement [facility] Start: 11-20-2024 [facility] Start: 10-31-2024 Screening for malign ant neoplasm of breast Mammogram Screening [facility] Start: 08-22-2024 DIABETES SCREEN DIABETES SCREEN [facility] Start: 08-22-2024 Diabetes Screening Diabetes Screenin g [facility] Start: 08-15-2024 Patient discharge [facility] Start: 08-15-2024 Referral to service [facility] Start: 08-15-2024 Administration of bl ood product [facility] Start: 08-13-2024 Dual pressure sponta neous ventilation support [facility] Start: 08-13-2024 Following clinical p athway protocol [facility] Start: 08-13-2024 Assessment of risk o f venous thromboembolism [facility] Start: 08-13-2024 Continuous pulse oximetry [facility] Start: 08-13-2024 Fall prevention [facility] Start: 08-13-2024 Inhalation therapy procedure [facility] Start: 08-13-2024 Insertion of cathete r into peripheral vein [facility] Start: 08-13-2024 Introduction of urin claire catheter [facility] Start: 08-13-2024 Measuring intake and output [facility] Start: 08-13-2024 Oxygen therapy [facility] Start: 08-13-2024 Providing care accor ding to standard [facility] Start: 08-13-2024 Provision of activit y privileges [facility] Start: 08-13-2024 Referral to occupati onal therapist [facility] Start: 08-13-2024 Referral to service [facility] Start: 08-13-2024 [facility] Start: 08-12-2024 Admission procedure [facility] Start: 08-12-2024 Consultation [facility] Start: 05-12-2024 Cholesterol [Mass/vo lume] in Serum or Plasma Cholesterol [facility] Start: 03-23-2024 COVID-19 Vaccine ( season) COVID-19 Vaccine ( season) [facility] Start: 03-23-2024 Influenza vaccination Influenza Vacc ine (#1) [facility] Start: 07-02-2023 [facility] Start: 07-02-2023 Patient referral [facility] Work Phone: Start: 03-23-2023 Covid-19 Vaccine ( season) Covid-19 Vaccine () [facility] Start: 03-23-2023 Influenza vaccination [facility] Start: 02-20-2023 ANNUAL PCP TEAM HOCKEY SCOUT RIZWAN DISEASE VISIT ANNUAL PCP TEAM CHRONIC DISEASE VISIT [facility] Start: 02-20-2023 BP CONTROLLED (<130/80) BP CON TROLLED (<130/80) [facility] Start: 02-20-2023 Mammography [facility] Start: 02-20-2023 Screening for malign ant neoplasm of breast [facility] Start: 01-30-2023 ANNUAL PCP TEAM HOCKEY SCOUT RIZWAN DISEASE VISIT ANNUAL PCP TEAM CHRONIC DISEASE VISIT [facility] Start: 10-18-2022 BP CONTROLLED (<130/80) BP CON TROLLED (<130/80) [facility] Start: 08-27-2022 Measurement of occul t blood in single stool specimen FIT [facility] Start: 08-27-2022 Screening for malign ant neoplasm of colon FIT [facility] Start: 08-22-2022 ANNUAL PCP TEAM HOCKEY SCOUT RIZWAN DISEASE VISIT ANNUAL PCP TEAM CHRONIC DISEASE VISIT [facility] Start: 08-22-2022 Basic metabolic 2000 panel - Serum or Plasma Basic Metabolic Panel [facility] Start: 08-22-2022 BP CONTROLLED (<130/80) BP CON TROLLED (<130/80) [facility] Start: 08-22-2022 Creatinine measurement Basic Metabol ic Panel [facility] Start: 08-09-2022 End: 08-09-2022 Telemedicine consultation with patient 08/09/2022 Telemedicine Psychiatry Tom Montelongo MD [address] [place] [address] [facility] Start: 06-06-2022 [facility] Start: 06-06-2022 Inhalation therapy procedure [facility] Work Phone: Start: 06-06-2022 End: 06-06-2022 [facility] Work Phone: Start: 06-06-2022 Referral to occupati onal therapist [facility] Work Phone: Start: 06-06-2022 Referral to service [facility] Work Phone: Start: 06-06-2022 Oxygen therapy [facility] Work Phone: Start: 06-06-2022 Following clinical p athway protocol [facility] Work Phone: Start: 06-06-2022 Ambulation without limitation [facility] Work Phone: Start: 06-06-2022 Assessment of risk o f venous thromboembolism [facility] Work Phone: Start: 06-06-2022 Insertion of cathete r into peripheral vein [facility] Work Phone: Start: 06-06-2022 Providing care accor ding to standard [facility] Work Phone: Start: 06-06-2022 End: 06-06-2022 Blood culture [facility] Work Phone: Start: 06-06-2022 Verification routine [facility] Work Phone: Start: 06-06-2022 Admission procedure [facility] Work Phone: Start: 06-06-2022 [facility] Work Phone: Start: 06-06-2022 Patient referral to dietitian [facility] Work Phone: Start: 06-05-2022 Assay of iron ASSAY OF IRON [facility] Work Phone: Start: 06-05-2022 Blood count complete auto&auto difrntl wbc COMPLETE CBC W/AUTO DIFF WBC [facility] Work Phone: Start: 06-05-2022 Collection venous bl ood venipuncture ROUTINE VENIPUNCTURE [facility] Work Phone: Start: 06-05-2022 Comprehensive metabo lic panel COMPREHEN METABOLIC PANEL [facility] Work Phone: Start: 06-05-2022 Iron binding capacity IRON BINDING T EST [facility] Work Phone: Start: 05-10-2022 End: 05-10-2022 Telemedicine consultation with patient 05/10/2022 Telemedicine Psychiatry Tom Montelongo MD [address] [place], [place] [id number] [facility] Start: 04-22-2022 Influenza vaccination Influenza Vacc ine (#1) [facility] Start: 04-01-2022 [facility] Work Phone: Start: 03-23-2022 Influenza vaccination INFLUENZA (#1) [facility] Start: 03-16-2022 Patient referral [facility] Work Phone: Start: 03-06-2022 Consultation [facility] Work Phone: Start: 02-24-2022 Screening for malign ant neoplasm of breast Mammography [facility] Start: 02-08-2022 End: 02-08-2022 Telemedicine consultation with patient 02/08/2022 Telemedicine Psychiatry Tom Montelongo MD [address] [place] [address] [facility] Start: 01-31-2022 End: 04-02-2022 CBC panel - Blood by Automated count CBC Lab Routine Anemia due to blood loss Expected: 01/31/2022, Expires: 04/02/2022 [facility] Work Phone: Comment on above: Expected: 01/31/2022 , Expires: 04/02/2022 Start: 01-19-2022 Patient discharge [facility] Work Phone: Start: 01-18-2022 End: 01-19-2022 [facility] Work Phone: Start: 01-18-2022 Dual pressure sponta neous ventilation support [facility] Work Phone: Start: 01-18-2022 Administration of bl ood product [facility] Work Phone: Start: 01-18-2022 Following clinical p athway protocol [facility] Work Phone: Start: 01-18-2022 Application of intermittent pneumatic compression device [facility] Work Phone: Start: 01-18-2022 Assessment of risk o f venous thromboembolism [facility] Work Phone: Start: 01-18-2022 Fall prevention [facility] Work Phone: Start: 01-18-2022 Incentive spirometry [facility] Work Phone: Start: 01-18-2022 Inhalation therapy procedure [facility] Work Phone: Start: 01-18-2022 Insertion of cathete r into peripheral vein [facility] Work Phone: Start: 01-18-2022 Introduction of urin claire catheter [facility] Work Phone: Start: 01-18-2022 Measuring intake and output [facility] Work Phone: Start: 01-18-2022 Oxygen therapy [facility] Work Phone: Start: 01-18-2022 Providing care accor ding to standard [facility] Work Phone: Start: 01-18-2022 Provision of activit y privileges [facility] Work Phone: Start: 01-18-2022 End: 01-18-2022 Referral to occupational therapist [facility] Work Phone: Start: 01-18-2022 End: 01-18-2022 Referral to service [facility] Work Phone: Start: 01-18-2022 Verification routine [facility] Work Phone: Start: 01-18-2022 Admission procedure [facility] Work Phone: Start: 01-15-2022 [facility] Work Phone: Start: 12-12-2021 Immunofixj electroph oresis other fluids IMMUNFIX E-PHORSIS/URINE/CSF [facility] Work Phone: Start: 11-23-2021 Hemoglobin A1c measurement Hemoglobi n A1C [facility] Start: 11-23-2021 Mammography MAMMOGRAM [facility] Start: 11-03-2021 Bacteria identified in Urine by Culture Urine Culture [facility] Work Phone: Start: 10-19-2021 End: 11-18-2022 Ct abdomen & pelvis w/o contrst 1/> body re CT UROGRAM WO/W IVCON Radiology Routine Gross hematuria Expected: 10/19/2021, Expires: 11/18/2022 [facility] Work Phone: Comment on above: Expected: 10/19/2021 , Expires: 11/18/2022 Start: 10-18-2021 End: 12-18-2021 Bacteria identified in Urine by Culture URINE CULTURE Microbiology Routine Gross hematuria Expected: 10/18/2021, Expires: 12/18/2021 [facility] Work Phone: Comment on above: Expected: 10/18/2021 , Expires: 12/18/2021 Start: 10-18-2021 End: 12-18-2021 CREATININE BLD CREATININE BLD Lab Routine Gross hematuria Expected: 10/18/2021, Expires: 12/18/2021 [facility] Work Phone: Comment on above: Expected: 10/18/2021 , Expires: 12/18/2021 Start: 09-22-2021 Catheterization of vein [facility] Work Phone: Start: 03-31-2021 COVID-19 Vaccine (3 - Booster for Pfizer series) COVID-19 Vaccine (3 - Booster for Pfizer series) [facility] Start: 03-22-2021 COVID-19 VACCINE (5 - Booster) COVID-19 VACCINE (5 - Booster) [facility] Start: 03-22-2021 COVID-19 VACCINE (5 - Pfizer series) COVID-19 VACCINE (5 - Pfizer series) [facility] Start: 12-24-2020 COVID-19 Vaccine (3 - Booster for Pfizer series) COVID-19 Vaccine (3 - Booster for Pfizer series) [facility] Start: 2020 Influenza vaccination LUNG CANCER SC REENING [facility] Start: 05-12-2020 Thyroid stimulating hormone measurement TSH [facility] Start: 08-08-2017 End: 08-08-2017 Appointment Appointment [facility] Work Phone: Start: 08-01-2017 End: 08-01-2017 Appointment Appointment [facility] Work Phone: Start: 05-09-2017 End: 05-09-2017 [facility] Work Phone: Start: 05-09-2017 End: 05-09-2017 Tobacco Sprayer Tobacco Sprayer [facility] Services, [address], [place], [address] [facility] Work Phone: Start: 05-09-2017 End: 05-09-2017 Follow Up Appt 3 months Follow Up Appt 3 months [facility] Work Phone: Start: 05-09-2017 End: 05-09-2017 Pulmonary Function Test - complete Pulmonary Function Test - complete [facility] Work Phone: Start: 05-09-2017 End: 05-09-2017 Appointment Appointment [facility] Work Phone: Start: 04-11-2017 End: 04-11-2017 Appointment Appointment [facility] Work Phone: Start: 03-29-2017 End: 03-30-2017 DMB DMB [facility] Work Phone: Start: 03-29-2017 End: 03-30-2017 Follow Up Appt 1 month Follow Up Appt 1 month [facility] Work Phone: Start: 03-29-2017 End: 03-30-2017 Pulmonary stress test/simple Pulmonary stress testing; simple (eg, 6-minute walk) [facility] Work Phone: Start: 03-29-2017 End: 03-29-2017 Appointment [facility] Work Phone: Start: 03-29-2017 End: 03-29-2017 DMB DMB [facility] Work Phone: Start: 03-29-2017 End: 03-29-2017 Follow Up Appt 1 month Follow Up Appt 1 month [facility] Phone: Start: 03-29-2017 End: 03-29-2017 Pulmonary stress test/simple Pulmonary stress testing; simple (eg, 6-minute walk) [facility] Phone: Start: 01-18-2017 End: 01-18-2017 Appointment Appointment [facility] Phone: Start: 01-18-2017 End: 01-18-2017 24 hour holter monitor 24 hour holter monitor [facility] Phone: Start: 01-18-2017 End: 01-18-2017 Ecg routine ecg w/least 12 lds w/i&r EKG (In office) [facility] Phone: Start: 01-18-2017 End: 01-18-2017 Follow Up Appt 6 months Follow Up Appt 6 months [facility] Phone: Start: 01-18-2017 End: 01-18-2017 PFM PFM [facility] Phone: Start: 01-18-2017 End: 01-18-2017 24 hour holter monitor 24 hour holter monitor [facility] Phone: Start: 01-18-2017 End: 01-18-2017 Electrocardiogram, complete EKG (In office) [facility] Phone: Start: 01-18-2017 End: 01-18-2017 Follow Up Appt 6 months Follow Up Appt 6 months [facility] Phone: Start: 01-18-2017 End: 01-18-2017 PFM PFM [facility] Phone: Start: 01-02-2017 End: 01-02-2017 Cardiac Referral Cardiac Referral [address] [place] [address], [address], [place], [address] [facility] Work Phone: Start: 01-02-2017 End: 01-02-2017 [facility] Work Phone: Start: 01-02-2017 End: 01-02-2017 Follow Up Appt 3 months Follow Up Appt 3 months [facility] Work Phone: Start: 01-02-2017 End: 01-02-2017 Pulmonary stress test/simple Pulmonary stress testing; simple (eg, 6-minute walk) [facility] Work Phone: Start: 01-02-2017 End: 01-02-2017 Appointment Appointment [facility] Work Phone: Start: 01-02-2017 End: 01-12-2017 Cardiac Referral [facility] Work Phone: Start: 01-02-2017 End: 01-02-2017 [facility] Work Phone: Start: 01-02-2017 End: 01-02-2017 Follow Up Appt 3 months Follow Up Appt 3 months [facility] Work Phone: Start: 01-02-2017 End: 01-02-2017 Pulmonary stress test/simple Pulmonary stress testing; simple (eg, 6-minute walk) [facility] Work Phone: Start: 11-10-2016 End: 12-15-2016 Pulmonary Function Test - complete Pulmonary Function Test - complete [facility] Work Phone: Start: 11-10-2016 End: 12-15-2016 Pulmonary Function Test - complete Pulmonary Function Test - complete [facility] Work Phone: Start: 10-27-2016 End: 12-15-2016 *MISC - Miscellaneous Lab Test #1 *MISC - Miscellaneous Lab Test #1 [facility] Work Phone: Start: 10-27-2016 End: 12-15-2016 *MISC - Miscellaneous Lab Test #1 *MISC - Miscellaneous Lab Test #1 [facility] Phone: Start: 10-19-2016 End: 04-06-2017 ASHLEY RAMIREZ [facility] Phone: Start: 10-19-2016 End: 04-06-2017 Echo tthrc r-t 2d w/wom-mode compl spec&colr d Echo Complete with Color Flow [facility] Phone: Start: 10-19-2016 End: 04-06-2017 Follow Up Appt 1 month Follow Up Appt 1 month [facility] Phone: Start: 10-19-2016 End: 12-15-2016 Pulmonary stress test/simple Pulmonary stress testing; simple (eg, 6-minute walk) [facility] Phone: Start: 10-19-2016 End: 10-19-2016 ASHLEY RAMIREZ [facility] Phone: Start: 10-19-2016 End: 10-19-2016 Follow Up Appt 1 month Follow Up Appt 1 month [facility] Phone: Start: 10-19-2016 End: 12-15-2016 Pulmonary stress test/simple Pulmonary stress testing; simple (eg, 6-minute walk) [facility] Phone: Start: 10-19-2016 End: 10-19-2016 Tte w/doppler, complete Echo Complete with Color Flow [facility] Phone: Start: 03-11-2016 PNEUMOCOCCAL (2 - PCV) PNEUMOCOCCAL (2 - PCV) [facility] Start: 03-11-2016 Pneumococcal vaccination [facility] Start: 10-22-2015 Influenza vaccination LUNG CANCER [place] KAYLA [facility] Start: 10-22-2015 Shingles (RZV) Vacci ne (1 of 2) Shingles (RZV) Vaccine (1 of 2) [facility] Start: 10-22-2015 SHINGRIX VACCINE (1 of 2) JEFFERS GRIX VACCINE (1 of 2) [facility] Start: 2010 COLOGUARD (FIT-DNA) COLOGUARD (FIT-D NA) [facility] Start: [address] COLONOGRAPHY [facility] Start: 2010 FECAL OCCULT BLOOD FECAL OCCULT BLOO D [facility] Start: 2010 Screening for malign ant neoplasm of colon [facility] Start: 2010 SIGMOIDOSCOPY SIGMOIDOSCOPY [facility] Start: 10-22-1995 Zoledronic acid therapy ALPHA- 1 ANTITRYPSIN DEFICIENCY SCREENING [facility] Start: 1984 Hepatitis A (HAV) Va ccine (optional start 19+ years) Hepatitis A (HAV) Vaccine (optional start 19+ years) [facility] Start: 1984 Hepatitis B vaccination Hepati tis B (HBV) Vaccine (1 of 3 - 19+ 3-dose series) [facility] Start: 1984 Hepatitis B Vaccine (1 of 3 - 19+ 3-dose series) Hepatitis B Vaccine (1 of 3 - 19+ 3-dose series) [facility] Start: 10-22-1983 BP CONTROLLED (<130/80) BP CON TROLLED (<130/80) [facility] Start: 10-22-1983 Hepatitis C screening Hepatitis C An tibody [facility] Start: 10-22-1983 HIV SCREENING HIV SCREENING [facility] Start: 10-22-1983 HIV screening HIV Screening [facility] Start: 10-22-1983 SPIROMETRY SPIROMETRY [facility] Start: 1965 HEPATITIS B (1 of 3 - 3-dose series) HEPATITIS B (1 of 3 - 3-dose series) [facility] Start: 1965 Hepatitis B Vaccine (1 of 3 - 3-dose series) Hepatitis B Vaccine (1 of 3 - 3-dose series) [facility] Alanine aminotransfe rase [Enzymatic activity/volume] in Serum or Plasma [facility] Albumin [Mass/volume ] in Serum or Plasma [facility] Alkaline phosphatase [Enzymatic activity/volume] in Serum or Plasma [facility] Anion gap in Serum o r Plasma [facility] Bacteria identified in Blood by Culture Blood Culture [facility] Work Phone: Bacteria identified in Urine by Culture Urine Culture [facility] Work Phone: Bilirubin, total measurement [facility] Blood ammonia measurement [facility] Blood culture [place] Work Phone: BUN/Creatinine ratio [facility] Calcium [Mass/volume ] in Serum or Plasma [facility] Carbon dioxide, tota l [Moles/volume] in Central venous blood [facility] Comprehensive metabo lic 2000 panel - Serum or Plasma [facility] Creatinine [Mass/vol ume] in Serum or Plasma [facility] Cystourethroscopy CYSTO.PANENDO Procedures Routine Gross hematuria Ordered: 10/18/2021 [facility] Work Phone: Comment on above: Ordered: 10/18/2021 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 CYTOLOGY NON-GY N Lab Routine Gross hematuria 10/18/2021 2:15 PM EDT [facility] Work Phone: End: 03-22-2023 Dup-scan xtr veins unilateral/limited study US DVT LOWER LT Radiology Routine Left leg pain 1 Occurrences starting 02/20/2022 until 03/22/2023 [facility] Work Phone: Comment on above: 1 Occurrences starti ng 02/20/2022 until 03/22/2023 DXA Bone [Mass/Area] Bone density [facility] Erythrocyte mean corpuscular volume determination [facility] Ferritin [Mass/volum e] in Serum or Plasma [facility] Work Phone: Glucose [Mass/volume ] in Serum or Plasma [facility] Hematocrit [Volume Fraction] of Blood [facility] Hemoglobin [Mass/vol ume] in Blood [facility] Inhalation bronchial challenge testing [facility] Iron [Mass/mass] in Unspecified specimen [facility] Work Phone: Iron and Iron bindin g capacity panel - Serum or Plasma [facility] Work Phone: Iron saturation [Mas s Fraction] in Serum or Plasma [facility] Work Phone: Leukocytes [#/volume ] in Blood [facility] Mean corpuscular hemoglobin concentration determination [facility] Mean corpuscular hemoglobin determination [facility] Measurement of renal function [facility] Measurement of substance [facility] MG Breast - bilatera l Screening [facility] Neutrophil count [facility] Neutrophil percent differential count [facility] Patient Education [facility] Work Phone: Patient referral [facility] Work Phone: Platelets [#/volume] in Blood [facility] POST VOID RESIDUAL POST VOID RES IDUAL Procedures Routine Recurrent UTI Ordered: 10/18/2021 [facility] Work Phone: Comment on above: Ordered: 10/18/2021 Potassium measurement [facility] Red blood cell count [facility] Red cell distributio n width determination [facility] Serum chloride measurement [facility] Sodium measurement [facility] Total protein measurement [facility] Urea nitrogen [Mass/volume] in Serum or Plasma [facility] Urinalysis complete panel - Urine [facility] Urinalysis complete panel - Urine [facility] US Kidney - bilatera l and Urinary bladder [facility] Vitamin B12 measurement [facility] Work Phone: [facility] Immunizations Immunization Date Immunization Notes Care Provider [facility] 07-02-2023 influenza, injectabl e, quadrivalent, preservative free Dr. Marilee Yu [facility] 07-02-2023 influenza virus vaccine, unspecified formulation Imani Geiger MD Work Phone: [facility] 06-05-2022 influenza, injectabl e, quadrivalent, preservative free Dr. Marilee Yu [facility] 06-05-2022 influenza, seasonal, injectable Dr. Alvarez Montanez Work Phone: [facility] Work Phone: 05-12-2021 tuberculin skin test ; purified protein derivative solution, intradermal Judy Gomez DO Work Phone: [facility] 04-25-2021 influenza, injectabl e, quadrivalent, preservative free Dr. Marilee Altmanlynda [facility] 04-25-2021 influenza, seasonal, injectable Dr. Alvarez Montanez Work Phone: [facility] 04-25-2021 influenza, seasonal, injectable, preservative free Judy Gomez DO Work Phone: [facility] 04-25-2021 Seasonal, quadrivale nt, recombinant, injectable influenza vaccine, preservative free Dr. Hunt [facility] 04-25-2021 influenza virus vaccine, unspecified formulation Tom Montelongo MD Work Phone: [facility] 01-25-2021 Covid (Pfizer) Dr. Alvarez Montanez Work Phone: [facility] 01-04-2021 Covid (Pfizer) Dr. Alvarez Montanez Work Phone: [facility] 11-23-2020 Hemoglobin A1C Judy Arroyoamadou gonzalo DO Work Phone: [facility] 10-29-2020 COVID-19 vaccine, ag e 12+ yr (PFIZER-BIONTECH - PURPLE TOP) Alvarez Montanez MD Work Phone: [facility] Work Phone: 10-08-2020 COVID-19 vaccine, ag e 12+ yr (PFIZER-BIONTECH - PURPLE TOP) Alvarez Montanez MD Work Phone: [facility] Work Phone: 05-13-2019 influenza, injectabl e, quadrivalent, contains preservative Alvarez Montanez MD Work Phone: [facility] 05-13-2019 influenza, injectabl e, quadrivalent, preservative free Dr. [facility] 05-13-2019 influenza, seasonal, injectable Dr. Alvarez Montanez Work Phone: [facility] 05-06-2018 influenza, injectabl e, quadrivalent, contains preservative Alvarez Montanez MD Work Phone: [facility] Work Phone: 05-06-2018 influenza, injectabl e, quadrivalent, preserv[facility] 05-06-2018 influenza, seasonal, injectable Dr. Alvarez Montanez Work Phone: [facility] 04-22-[address] Alvarez Montanez Work Phone: [facility] 04-22-2017 influenza, seasonal, injectable, preservative free Judy Gomez DO Work Phone: [facility] 04-02-2017 influenza, injectabl e, quadrivalent, contains preservative Alvarez Montanez MD Work Phone: [facility] 04-02-2017 influenza, injectabl e, quadrivalent, preservative free [facility]. Hunt [facility] 04-02-2017 influenza, seasonal, injectable Dr. Alvarez Montanez Work Phone: [facility] 06-13-2016 influenza, injectabl e, quadrivalent, contains preservative Alvarez Montanez MD Work Phone: [facility] 06-13-2016 influenza, injectabl e, quadrivalent, preservative free [facility]. [facility] 06-13-2016 influenza, seasonal, injectable Dr. Alvarez Montanez Work Phone: [facility] 05-23-[address] Alvarez Montanez Work Phone: [facility] 05-23-2016 influenza, seasonal, injectable, preservative free Judy Gomez DO Work Phone: [facility] 12-21-2015 tetanus and diphther ia toxoids, adsorbed, preservative free, for adult use (2 Lf of tetanus toxoid and 2 Lf of diphtheria toxoid) Dr. Alvarez Montanez Work Phone: [facility] 12-21-2015 tetanus and diphther ia toxoids, adsorbed, preservative free, for adult use (5 Lf of tetanus toxoid and 2 Lf of diphtheria toxoid) Alvarez Montanez MD Work Phone: [facility] 06-04-2015 influenza, injectabl e, quadrivalent, preservative free Judy Zgodinski DO Work Phone: [facility] 06-04-2015 influenza, seasonal, injectable Dr. Alvarez Montanez Work Phone: [facility] 03-28-2015 influenza, injectabl e, quadrivalent, preservative free [facility]. [facility] 03-28-2015 influenza, seasonal, injectable Dr. Alvarez Montanez Work Phone: [facility] 03-28-2015 influenza, seasonal, injectable, preservative free Judy Zgodinski DO Work Phone: [facility] 03-28-2015 Seasonal, quadrivale nt, recombinant, injectable influenza vaccine, preservative free [facility]. [facility] 03-11-2015 pneumococcal polysaccharide vaccine, 23 valent Alvarez Montanez MD Work Phone: [facility] Work Phone: 03-11-2015 tetanus toxoid, redu kelsey diphtheria toxoid, and acellular pertussis vaccine, adsorbed Alvarez Montanez MD Work Phone: [facility] Work Phone: 05-07-2014 influenza, seasonal, injectable, preservative free Judy Zgodinski DO Work Phone: [facility] 05-07-2014 pneumococcal polysaccharide vaccine, 23 valpetar Montanez MD Work Phone: [facility] 06-03-2013 influenza, seasonal, injectable, preservative free Judy Zgodinski DO Work Phone: [facility] 06-03-2013 pneumococcal polysaccharide vaccine, 23 valpetar Montanez MD Work Phone: [facility] 04-04-2012 pneumococcal polysaccharide vaccine, 23 valent Alvarez Montanez MD Work Phone: [facility] Payers Date Payer Category Payer Self-pay [id number] 2019 Medicaid MEDICAID [facility] MEDICAID [id number] 2019-Present [phone] [address] [place] [address] Medicaid [id number] 2019 Medicaid [id number] 2017 Medicaid [id number] 1965 Unknown [id number] 2..[id number] 1965 Unknown [id number] 2.840.1.397960.3.579.2.732 1965 Unknown [id number] 2..840.1.477105.3.579.2.732 1965 Unknown [id number] 2..840.1.222588.3.579.2.732 Unknown [id number] 2.16.840.1.377215.3.579.2.462 Unknown [id number] 2.16.840.1.317240.3.579.2.462 Unknown [id number] 2.16.840.1.590158.3.579.2.462 Unknown [id number] 2.16.840.1.498292.3.579.2.462 Unknown [id number] 2.16.840.1.026289.3.579.2.462 Unknown [id number] 2.16.840.1.119142.3.579.2.462 Unknown [id number] 2.16.840.1.274818.3.579.2.462 Unknown [id number] 2.16.840.1.345170.3.579.2.462 Unknown [id number] 2.16.840.1.210912.3.579.2.462 Unknown [id number] 2.16.840.1.680334.3.579.2.462 Unknown [id number] 2.16.840.1.060260.3.579.2.462 Unknown [id number] 2.16.840.1.479732.3.579.2.462 Unknown [id number] 2.16.840.1.382039.3.579.2.462 Unknown [id number] 2.16.840.1.371575.3.579.2.462 Unknown [id number] 2.840.1.199584.3.579.2.462 Unknown [id number] 2.16.840.1.587156.3.579.2.462 Unknown [id number] 2.16840.1.091623.3.579.2.462 Unknown [id number] 2.16.840.1.860448.3.579.2.462 Unknown [id number] 2.16.840.1.701198.3.579.2.462 Unknown [id number] 2.16.840.1.443668.3.579.2.462 Unknown [id number] 2.16.840.1.104621.3.579.2.462 Unknown [id number] 2.16.840.1.397959.3.579.2.462 Unknown [id number] 2.16.840.1.697656.3.579.2.462 Unknown [id number] 2.16.840.1.545930.3.579.2.462 Unknown [id number] 2.16.840.1.654691.3.579.2.462 Social History Date Type Detail Facility Start: 01-07-2021 End: 11-20-2024 Tobacco smoking status NHIS Ex-smoker [facility] End: 01-21-2016 History of tobacco use Current smoker [facility] End: 01-21-2016 History of tobacco use Cigarette Smoker [facility] Start: 01-29-2020 End: 01-07-2021 Cigarettes smoked current (pack per day) - Reported 1 [facility] Start: 04-30-2018 End: 01-07-2021 Tobacco use and exposure Smokeless tobacco non-user [facility] Start: 01-29-2020 End: 08-22-2021 Alcohol intake Current non-drinker of alcohol (finding) [facility] Start: 1965 Sex Assigned At Female C [facility] Start: 10-01-2021 End: 02-20-2022 Exposure to SARS-CoV-2 (event) Not sure [facility] Start: 10-10-2021 End: 07-02-2023 Tobacco smoking status NHIS Unknown if ever smoked [facility] Start: 03-04-2018 None [facility] Start: 09-06-2019 Spouse/ Signif icant Other [facility] Start: 03-04-2018 Non-smoker [facility] Start: 01-01-2018 Tobacco Comment 1-2 cigarettes daily [facility] Start: 04-30-2018 Tobacco smoking stat us NYIS Light tobacco smoker [facility] Start: 1965 Sex Assigned At Not on file M [facility] Start: 01-29-2020 End: 01-30-2022 Tobacco use panel [facility] Adult Depression Screening Assessment 0 [facility] Start: 01-29-2020 Gender identity Identifies as female gender (finding) [facility] (I/We) worried wheth er (my/our) food would run out before (I/we) got money to buy more. Never true [facility] Start: 01-25-2015 Sex Female (finding) [facility] Goals Date Patient Goal Desired Activity [...] Assessment Result Facility 08-15-2024 Functional status Chair [facility] Work Phone: 06-06-2022 Functional status Activity Abili ty Unable to Assess [facility] Work Phone: 01-19-2022 Functional status Ambulates;Bathroom Priv ilege [facility] Work Phone: 08-31-2021 Functional status Assistive Maia sandra Rolling Walker [facility] Work Phone: 08-30-2021 Functional status Up ad carley;Bedside Commo de [facility] Work Phone: Mental Status Date Assessment Result Facility 08-15-2024 Cognitive function Voice/Name [facility] Work Phone: 07-02-2023 Cognitive function Level Of Cons ciousness Awake;Alert;Appropriate [facility] Work Phone: 06-06-2022 Cognitive function Voice/Name [facility] Work Phone: 06-05-2022 Cognitive function Level Of Cons ciousness Awake;Alert;Appropriate;Follow s Commands [facility] Work Phone: 03-15-2022 Cognitive function Level Of Cons ciousness Awake;Alert;Appropriate;Follow s Commands [facility] Work Phone: 01-19-2022 Cognitive function Voice/Name [facility] Work Phone: 01-17-2022 Cognitive function Level Of Cons ciousness Awake;Alert;Appropriate;Follow s Commands [facility] Work Phone: 01-10-2022 Cognitive function Level Of Cons ciousness Awake;Alert;Appropriate;Follow s Commands [facility] Work Phone: 11-03-2021 Cognitive function Voice/Name [facility] Work Phone: 08-30-2021 Cognitive function Voice/Name [facility] Work Phone: Clinical Notes 01-10-2021 to 01-09-2025 Note Date & Type Note Facility 01-09-2025 Radiology Diagnostic study note [facility] Imaging Services [address] [place], [place] [id number] Kidney and Bladder MR#: [id number] Acct: [id number] Name: FELISHA PERRIN Rep #: [id number] : 1965 F 59 From: Cassidy Herndon MD PCP: Dr. Ysabel Ruffin MD Status: REG CLI Study:Kidney and Bladder Date of Exam: 0 01/08/25 Exam# [id number] Ordering Dr: Ysabel Ruffin MD PROCEDURE: KIDNEY [...] changes Under filled urinary bladder. Reading Location: [place] [address] CC: Dr. 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 December 29, 2024 8 :55am Anxiety and depression inactive [facility] 2024 8:55am Falls frequently inactive December 8:55am History of blood clots noneactive [facility] 2024 8:55am Hematuria noneactive December 29, 2024 8:55am Chronic pain noneactive December 29 8:55am Essential hypertension noneactive [facility] 2024 8:55am Prediabetes noneactive December 29 8:55am Chronic anemia noneactive December 29, 2024 8:55am Iron deficiency noneactive December 29, 2024 8:55am [facility] Work Phone: 1(766) 352-704101-24-2025 [facility]01-22-2025 Evaluation note* Diagnosis Onset Date Resolution Status Admit Date Complicated laceration of hand acute August 12 11:51pm Parkinson's disease acute 2024 11:51pm Syncope resolved August 12, 2024 11:51pm TIA (transient ischemic attack) resolved August 12 11:51pm Complicated laceration of hand acute August 28 3:19pm Head injury acute November 14, 025 7:21am Essential hypertension noneactive [facility] 2024 7:21am [facility] Work Phone: 1(387) 959-863212-02-2024 [facility]06-24-2024 NoteHNO ID: [id number] Author: DEMARIO MARTINEZ RN Service: ? Author Type: Registered Nurse Type: Progress Notes Filed: 01/16/2024 18:50 Note Text: CDM Telephonic Outreach Provider Action/FYI Pt noted she has changed to [facility] associated PCP , Pt is aware to contact PCP for any changes in symptyoms or needs. Contacted for: Routine Telephonic Outreach Contact made with patient: Yes Patient identified by name and date of . Discussed care with patient Demario Martinez RN January 14, 2024 6:15 [facility]06-24-2024 History of Present illness Narrative* Demario Martinez RN - 01/14/2024 6:15 PM EDT CDM Telephonic Outreach Provider Action/FYI Pt noted she has changed to [facility] associated PCP , Pt is aware [...] has an Appt coming up with a [employer] in [place], unsure who it is will contact her sister to get the name for PCC. SDH, Goals updated Contacted for: Engagement Contact made with patient: Yes Patient identified by name and date of . Discussed care with patient Outcomes: Patient forgot, reminder given Are you experiencing any new or worsening symptoms you need to talk about today? No Based on assessment nurse, the following disposition is advised: No symptoms or symptoms present, not severe. Routed to: No Action Needed CURTIS Education Provided this Outreach: No Demario Martinez RN January 07, 2024 12:51 PM documented in this encounterOhio[facility]2024 NoteHNO ID: [id number] Author: DEMARIO MARTINEZ RN Service: ? Author Type: Registered Nurse Type: Progress Notes Filed: 01/16/2024 18:50 Note Text: CDM Telephonic Outreach Provider Action/FYI CDM:COPD Call back to Pt as requested to verify current PCP, unable to leave a message. Contacted for: Engagement Contact made with patient: No, unable to leave message. Will reattempt call Demario Martinez RN January 11, 2024 1:31 [facility]06-17-2024 NoteHNO ID: [id number] Author: DEMARIO MARTINEZ RN Service: ? Author Type: Registered Nurse Type: Progress Notes Filed: 01/16/2024 18:50 Note Text: CDM Telephonic Outreach Provider Action/FYI CDM:COPD Pt denies symptom changes, concerns or needs. Instructed on follow up with PCP/ specialist every 6 months, Pt noted she has an Appt coming up with a [employer] [facility] in [place], unsure who it is will contact her sister to get the name for PCC. SDH, Goals updated Contacted for: Engagement Contact made with patient: Yes Patient identified by name and date of . Discussed care with patient Outcomes: Patient forgot, reminder given Are you experiencing any new or worsening symptoms you need to talk about today? No Based on assessment nurse, the following disposition is advised: No symptoms or symptoms present, not severe. Routed to: No Action Needed CURTIS Education Provided this Outreach: No Demario Martinez RN January 07, 2024 12:51 [facility]06-17-2024 NotePatient Outreach ([facility]) FELISHA PERRIN ([id number]) 1965 F Date Time Provider Department 01/07/24 DEMARIO MARTINEZ During your visit today, we recorded the following information about you: Demario Martinez RN 01/16/2024 6:50 PM Signed CDM Telephonic Outreach Provider Action/FYI CDM:COPD Pt denies symptom changes, concerns or needs. Instructed on follow up with PCP/ specialist every 6 months, Pt noted she has an Appt coming up with a [employer] [facility] in [place], unsure who it is will contact her sister to get the name for PCC. SDH, Goals updated Contacted for: Engagement Contact made with patient: Yes Patient identified by name and date of . Discussed care with patient Outcomes: Patient forgot, reminder given Are you experiencing any new or worsening symptoms you need to talk about today? No Based on assessment nurse, the following disposition is advised: No symptoms [...] Action/FYI Pt noted she has changed to [facility] associated PCP , Pt is aware [...] Neurologist. - LORazepam (ATIVAN) 0.5 mg From [employer]. - meloxicam (MOBIC) 7.5 mg tablet Take [...] 1 tablet by mouth twice daily. Per [facility]. - Mirtazapine (REMERON) 7.5 mg tablet Take 1 tablet by mouth daily at bedtime. Per [facility]. - acetaminophen (TYLENOL EXTRA STRENGTH) 500 [...] [K21.9] Anxiety [F41.9] Arthriti (more content not included)...[facility]04-26-2024 Note HNO ID: [id number] Author: DEMARIO MARTINEZ RN Service: ? Author [...] to talk about today? No Based on assessment nurse, the following disposition is advised: No symptoms or symptoms present, not severe. Routed to: No Action Needed CURTIS Education Provided this Outreach: No Demario Martinez RN November 16, 2023 3:03 [facility]04-26-2024 History of Present illness Narrative* Demario [...] to talk about today? No Based on assessment nurse, the following disposition is advised: No symptoms or symptoms present, not severe. Routed to: No Action Needed CURTIS Education Provided this Outreach: No Demario Martinez RN November 16, 2023 3:03 PM documented in this encounterOhiohealth [facility]-2024 NotePatient Outreach ([facility]) FELISHA PERRIN ([id number]) 1965 F Date Time Provider Department 11/16/23 [...] to talk about today? No Based on assessment nurse, the following disposition is advised: No symptoms [...] - oxyCODONE-acetaminophen (PERCOCET) 5-325 mg tablet From [employer] - venlafaxine ER (EFFEXOR XR) 150 mg [...] 1 tablet by mouth twice daily. Per [facility]. - Mirtazapine (REMERON) 7.5 mg tablet Take 1 tablet by mouth daily at bedtime. Per [facility]. - acetaminophen (TYLENOL EXTRA STRENGTH) 500 mg tablet Take 1,000 mg by mouth every 8 hours as needed. - COMPOUNDED PRESCRIPTION PORTABLE OXYGEN VIA NASAL CANNULA. 2 LPM FOR USE WITH EXERTION, ACTIVITY. Dx:R09.02; J44.9; J98.4 Problem List As Of Date 11/16/2023 Noted Resolved Abdominal pain [R10.9] 04/03/2012 07/07/2015 UTI (urinary tract infection) [N39.0] 04/03/2012 12/21/2015 Stroke ([facility]) [I63.9] 04/03/2012 12/21/2015 Obesity [E66.9] 04/03/2012 07/07/2015 [...] hyperlipidemia [E78.2] 11/17/2016 Pulmonary hypertension, secondary (HCC) [[id number]*11/17/2016 History of DVT of lower extremity [Z86.718] 12/28/2016 Colonic mass [K63.89] 03/02/2017 09/26/2017 Obesity, Class III, BMI >= 40 [E66.01] 01/01/2018 Restrictive lung disease secondary to obesity [*08 (more content not included)...[facility]04-12-2024 Miscellaneous Notes* Letter - Coordinator, Mammography - 11/02/2023 7:27 AM EDT November 02, 2023 PID: [id number] Felisha Perrin [id number] [facility] [address] [place] [id number] Dear Ms. Perrin, We are pleased to [...] report will be kept on file at [facility] as part of your permanent medical record and are available for your continuing care. Thank you for allowing us to help in meeting your health care needs. Sincerely, Dr. Brothers Interpreting Radiologist [facility] (Normal over 40) documented in this encounterOhiohealth [facility]04-11-2024 History of Present illness Narrative* Stephanie Hernandes [...] PATIENT PRESENTS WITH AN IMPLANTABLE OR ATTACHED BARREL COOPER: No RADIOLOGY DEPARTMENT: Mammography PERIPHERAL IV DATA: Not applicable SIGNED BY: Garth Brandon November 01, 2023 1:19 PM documented in this encounterOhiohealth Arthur [facility]04-11-2024 NoteHNO ID: [id number] Author: STEPHANIE HERNANDES Mammo Tech Service: ? Author Type: Manager Printing Type: Progress Notes Filed: 11/01/2023 13:38 Note [...] PATIENT PRESENTS WITH AN IMPLANTABLE OR ATTACHED BARREL COOPER: No RADIOLOGY DEPARTMENT: Mammography PERIPHERAL IV DATA: Not applicable SIGNED BY: Stephanie Hernandes uTest November 01, 2023 1:19 [facility]04-11-2024 History of Present illness Narrative* Francisco [...] PATIENT PRESENTS WITH AN IMPLANTABLE OR ATTACHED BARREL COOPER: No RADIOLOGY DEPARTMENT: Bone Density PERIPHERAL IV DATA: Not applicable SIGNED BY: RT Van(Noreen) November 01, 2023 12:58 PM documented in this encounterOhiohealth [facility]04-11-2024 NoteHNO ID: [id number] Author: FRANCISCO MEZA RT(R) Service: ? Author [...] PATIENT PRESENTS WITH AN IMPLANTABLE OR ATTACHED BARREL COOPER: No RADIOLOGY DEPARTMENT: Bone Density PERIPHERAL IV DATA: Not applicable SIGNED BY: RT Van(R) November 01, 2023 12:58 [facility]03-25-2024 NoteHNO ID: [id number] Author: DEMARIO MARTINEZ RN Service: ? Author [...] Demario Martinez RN October 15, 2023 11:26 [facility]03-25-2024 History of Present illness Narrative* Demario Martinez [...] 15, 2023 11:26 AM documented in this encounterOhiohealth [facility]03-25-2024 NotePatient Outreach ([facility]BC[facility]) FELISHA PERRIN ([id number]) 1965 F Date Time Provider Department 10/15/23 [...] Neurologist. - LORazepam (ATIVAN) 0.5 mg From [employer]. - meloxicam (MOBIC) 7.5 mg tablet Take [...] 1 tablet by mouth twice daily. Per [facility]. - Mirtazapine (REMERON) 7.5 mg tablet Take 1 tablet by mouth daily at bedtime. Per [facility]. - acetaminophen (TYLENOL EXTRA STRENGTH) 500 [...] hyperlipidemia [E78.2] 11/17/2016 Pulmonary hypertension, secondary (HCC) [WKK012*11/17/2016 History of DVT of lower extremity [Z86.718] [...] 01/30/2022 Concussion [S06.0XAA] 0 (more content not included)...[facility] 10-13-2023 NoteHNO ID: [id number] Author: ANDRIA BUTLER LPN Service: ? Author Type: LICENSED NURSE Type: Progress Notes Filed: 10/13/2023 11:23 Note Text: POPULATION HEALTH NAVIGATION OUTREACH Action/FYI Reason for Outreach Care Gap/HCC or Scheduling Wellness Visits Care Gaps due: Follow-up Appointment Patient Contacted: Unable or unnecessary to reach patient: Left message Navigation Signature: Andria Butler LPN October 13, 2023 11:21 [facility]03-23-2024 History of Present illness Narrative* Andria Butler LPN - 10/13/2023 11:20 AM EDT POPULATION HEALTH NAVIGATION OUTREACH Action/FYI Reason for Outreach Care Gap/HCC or Scheduling Wellness Visits Care Gaps due: Follow-up Appointment Patient Contacted: Unable or unnecessary to reach patient: Left message Navigation Signature: Andria Butler LPN October 13, 2023 11:21 AM documented in this encounterOhiohealth Arthur [facility]03-23-2024 NotePatient Outreach (INTMWS) FELISHA PERRIN ([id number]) 1965 F Date Time Provider Department 10/13/23 [...] Neurologist. - LORazepam (ATIVAN) 0.5 mg From [employer]. - meloxicam (MOBIC) 7.5 mg tablet Take 7.5 mg by mouth once daily. - oxyCODONE-acetaminophen (PERCOCET) 5-325 mg tablet From [employer] - venlafaxine ER (EFFEXOR XR) 150 [...] 1 tablet by mouth twice daily. Per [facility]. - Mirtazapine (REMERON) 7.5 mg tablet Take 1 tablet by mouth daily at bedtime. Per [facility]. - acetaminophen (TYLENOL EXTRA STRENGTH) 500 [...] hyperlipidemia [E78.2] 11/17/2016 Pulmonary hypertension, secondary (HCC) [CEH281*11/17/2016 History of DVT of lower extremity [Z86.718] [...] 01/30/2022 Polyneuropathy [G62.9] 01/30/2022 (more content not included)...[facility]02-22-2024 NoteHNO ID: [id number] Author: DEMARIO MARTINEZ RN Service: ? Author [...] Demario Martinez RN September 13, 2023 10:47 [facility]02-22-2024 History of Present illness Narrative* Demario Martinez RN - 09/13/2023 10:21 AM EST CDM Telephonic Outreach Provider Action/FYI CDM:COPD Left a message to verify symptom status and needs. Instructed to call PCP with any symptom or condition changes. Copd CURTIS Education sent Contacted for: Engagement Contact made with patient: No, left message. Demario Martinez RN September 13, 2023 10:47 AM documented in this encounterOhiohealth Arthur [facility]02-22-2024 NotePatient Outreach ([facility]) ZOILAFELISHA ([id number]) 1965 F Date Time Provider Department 09/13/23 [...] pulmonary disease (COPD) [J44.89] Order(s):PT ED PULMONARY [[id number]] Order #: [id number]: 1 Prescriptions as of 09/13/2023 - spironolactone [...] Neurologist. - LORazepam (ATIVAN) 0.5 mg From [employer]. 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 Author Type: Registered Nurse Type: Progress Notes Filed: 08/13/2023 16:44 Note Text: CDM Telephonic Outreach Provider Action/FYI CDM:COPD Left a message to verify symptom status and needs, instructed to call PCP with any changes in symptoms or condition. Contacted for: Engagement Contact made with patient: No, left message. Demario Martinez RN August 13, 2023 4:44 [facility]01-19-2024 NoteHNO ID: [id number] Author: DEMARIO MARTINEZ RN Service: ? Author Type: Registered Nurse Type: Progress Notes Filed: 08/13/2023 16:44 Note Text: CDM Telephonic Outreach Provider Action/FYI CDM:COPD Called Pt, unable to leave?a message to verify symptom status and needs. Contacted for: Engagement Contact made with patient: No, unable to leave message. Will reattempt call Demario Martinez RN August 10, 2023 1:21 [facility]01-17-2024 NoteHNO ID: [id number] Author: DEMARIO MARTINEZ RN Service: ? Author Type: Registered Nurse Type: Progress Notes Filed: 08/13/2023 16:44 Note Text: CDM Telephonic Outreach Provider Action/FYI CDM:COPD Left a message to verify symptom status and needs, instructed to call PCP with any changes in symptoms or condition. Contacted for: Engagement Contact made with patient: No, left message. Demario Martinez RN August 08, 2023 11:55 [facility]01-17-2024 NotePatient Outreach ([facility]) FELISHA PERRIN ([id number]) 1965 F Date Time Provider Department 08/08/23 [...] Neurologist. - LORazepam (ATIVAN) 0.5 mg From [employer]. - meloxicam (MOBIC) 7.5 mg tablet Take 7.5 mg by mouth once daily. - oxyCODONE-acetaminophen (PERCOCET) 5-325 mg tablet From [facility] - venlafaxine ER (EFFEXOR XR) 150 [...] disea*10/23/2016 Mixed hyperlipidemia [E78.2] (more content not included)...[facility]12-12-2023 Discharge summary Author Callum Knutson [facility] July 02, 2023 11:16pm Note Date/Time July 02, 2023 9:30pm [facility] Medical Records Department [address] [place] [address] Emergency Department Summary 07/02/23 MR#: [id number] Acct: [id number] Name: FELISHA PERRIN Rep #:[id number] : [...] she returned to where she lives at [facility], shewas told that her hemoglobin was low at 6.5. She is also having the left flank pain. She denies any exacerbating or alleviating factors to her left flank pain. [facility] Medical History Acute and chronic respiratory [...] % (Auto) 63.5 Lymph % (Auto) 24.9 [place] % (Auto) 7.9 Eos % (Auto) 3.1 [...] Clarity Clear Urine pH 6.0 Ur Specific [place] 1.010 Urine Protein Negative Urine Glucose (UA) [...] department. Disposition Disposition: Assisted Living Discharge Location: [facility] What to do if you have Problems For any increased pain, shortness of breath, bleeding, nausea or vomiting, chestpain, or any unexpected problems, contact your Primary Care Provider. Call [facility] ([phone]) or report to the closest Emergency Room. Call 911 if necessary. 07/02/23 1470 <Electronically signed by Callum Knutson MD> Cosigner Signature (if applicable): CC: Marilee Yu MD ~ Signed [facility] Work Phone: 1(112) 561-759411-04-2023 NoteHNO ID: [id number] Author: Demario Martinez, RN Service: ? Author Type: Registered Nurse Type: Progress Notes Filed: 05/26/2023 5:13 PM Note Text: CDM Telephonic Outreach Provider Action/FYI Spk with Pt she denies symptom changes or concerns, or needs. Provided My Chart 'Home Monitoring questionnaire location. Pt notes is living at [place] at [facility], Goals completed. Contacted for: Engagement Contact made with patient: Yes Patient identified by name and date of . Discussed care with patient Outcomes: Patient forgot, reminder given Are you experiencing any new or worsening symptoms you need to talk about today? No Based on assessment nurse, the following disposition is advised: No symptoms or symptoms present, not severe. Routed to: No Action Needed CURTIS Education Provided this Outreach: No Demario Martinez RN May 26, 2023 5:06 [facility]11-04-2023 History of Present illness Narrative* Demario Martinez RN - 05/26/2023 5:06 PM EDT CDM Telephonic Outreach Provider Action/FYI Spk with Pt she denies symptom changes or concerns, or needs. Provided My Chart 'Home Monitoring questionnaire location. Pt notes is living at [place] at [facility], Goals completed. Contacted for: Engagement Contact made with patient: Yes Patient identified by name and date of . Discussed care with patient Outcomes: Patient forgot, reminder given Are you experiencing any new or worsening symptoms you need to talk about today? No Based on assessment nurse, the following disposition is advised: No symptoms [...] 24, 2023 5:22 PM documented in this encounterOhiohealth [facility]11-02-2023 NoteHNO ID: [id number] Author: Demario Martinez RN Service: ? Author [...] Demario Martinez RN May 24, 2023 5:22 [facility]11-02-2023 NotePatient Outreach ([facility]) FELISHA PERRIN ([id number]) 1965 F Date Time Provider Department 05/24/23 [...] questionnaire location. Pt notes is living at [place] at [facility], Goals completed. Contacted for: Engagement Contact made with patient: Yes Patient identified by name and date of . Discussed care with patient Outcomes: Patient forgot, reminder given Are you experiencing any new or worsening symptoms you need to talk about today? No Based on assessment nurse, the following disposition is advised: No symptoms [...] Neurologist. - LORazepam (ATIVAN) 0.5 mg From [employer]. - meloxicam (MOBIC) 7.5 mg tablet Take [...] [R09.02] 01/17/2016 09/26/2017 O (more content not included)...[facility]08-09-2023 NoteHNO ID: [id number] Author: Demario Martinez RN Service: ? Author Type: Registered Nurse Type: Progress Notes Filed: 02/28/2023 2:25 PM Note Text: CDM Telephonic Outreach Provider Action/FYI CDM: COPD Left a message to verify symptom status and needs and to provide My Chart 'Home Monitoring questionnaire location. Contacted for: Engagement Contact made with patient: No, left message. Demario Martinez RN February 28, 2023 2:23 [facility]08-09-2023 History of Present illness Narrative* Demario [...] 22, 2023 2:51 PM documented in this encounterOhiohealth Arthur [facility]08-03-2023 NoteHNO ID: [id number] Author: Demario Martinez RN Service: ? Author [...] Demario Martinez RN February 22, 2023 2:51 [facility]08-03-2023 NotePatient Outreach ([facility]) FELISHA PERRIN ([id number]) 1965 F Date Time Provider Department 02/22/23 [...] Neurologist. - LORazepam (ATIVAN) [facility]. - meloxicam (MOBIC) 7.5 mg tablet Take [...] hyperlipidemia [E78.2] 11/17/2016 Pulmonary hypertension, secondary (HCC) [TYJ284*11/17/2016 History of DVT of lower extremity [Z86.718] 12/28/2016 Colonic mass [K63.89] 03/02/2017 09/26/2017 Obesity, Class III, BMI >= 40 [E66.01] 01/01/2018 Restrictive lung disease secondary to obesity [*03/11/20 (more content not included)...[facility]07-20-2023 Discharge summary Author Kee Funk [facility] February 07, 2023 10:47pm Note Date/Time February 07, 2023 10:3 4pm [facility] Medical Records Department [address] [place] [address] Emergency Department Summary 02/07/23 MR#: [id number] Acct: [id number] Name: FELISHA PERRIN Rep #:[id number] : [...] to ambulate. She is chronically on oxygen. [facility] Medical History Abnormal cardiac enzyme level [...] is quite extensive I reviewed in [employer] [facility]F paperwork Review of systems General: There is [...] your Primary Care Provider. Call [facility] ([phone]) or report to the closest Emergency Room. Call 911 if necessary. 02/07/232246 <Electronically signed by Kee Funk MD> Cosigner Signature (if applicable): CC: Marilee Yu MD ~ Signed [facility] Work Phone: 1(117) 144-105901-18-2023 History of Present illness Narrative* Tom Montelongo [...] unable to reach pt. Call forwarded to makeena messaging Mavatar, voicemail has only phone number, no other identifier, unable to leave HIPAA-complaint message If patient calls back please ask if any concerns and if need refills. If so, please ask which medications and which pharmacy to send to. Will have front elevator operator attempt to reschedule patient Tom Montelongo M.D. French Comber PGY-3 This encounter was opened in error. Patient was a No-Show. Please disregard. documented in this [id number] Miscellaneous Notes* Telephone Encounter - Andria Butler [...] and advise. Fouzia Little documented in this encounterOhiohealth Arthur [facility]12-07-2022 Miscellaneous Notes* Telephone Encounter - Ritika Berry [...] you. Ritika Berry RN documented in this encounterOhiohealth Arthur G.[facility]. [facility]12-05-2022 Note* Addendum Note - Minnie Edwards MD - 06/26/2022 12:07 PM ESTAddended by: MINNIE EDWARDS on: 06/26/2022 12:07 PM Modules accepted: Level of Service [id number] Miscellaneous Notes* Addendum Note - Minnie Edwards MD - 06/26/2022 12:07 PM ESTAddended by: MINNIE EDWARDS on: 06/26/2022 12:07 PM Modules accepted: Level of Service documented in this [id number] Miscellaneous Notes* Telephone Encounter - Kalli Zarate [...] of Last Labs: 02/15/2022 documented in this encounterOhiohealth Arthur [facility]10-19-2022 History of Present illness Narrative* Minnie Edwards MD - 05/10/2022 10:30 AM EDT Images from the original note were not included. Documentation: Mode: Telephone Patient Patient Work Phone: Patient Cell Preferred phone: [phone] Consent: I confirmed patient understanding of the [...] see MR Phone numbers Preferred phone #: [phone] Verified number (above) and current location (in [...] one day at a time. 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 Talks to and [...] dialogue with therapist: Yes Suicide Screener: C-SSRS [place]-Suicide Severity Rating Scale Able to complete [place]-Suicide Severity Rating Scale with Patient?: Yes 1) [...] CCP on 03/09/15 Restless leg syndrome Stroke ([facility]) Vitamin D deficiency MENTAL HEALTH INTERVENTIONS: Maintain [...] appointment: Patient to schedule Tom Montelongo M.D. French Comber PGY-3 Teaching Physician Note: I saw and evaluated the patient on 05/10/22. I personally obtained the keith and critical portions ofthe history and physical exam. I reviewed the resident's documentation and discussed the patient with the resident. I agree with the resident's medical decision making as documented in the resident'snote. Minnie Edwards MD documented in this [id number] Telephone encounter Note* Telephone Encounter - Bib Enriquez RPh - 04/02/2022 3:21 PM EDT Last visit with Judy Gomez DO (Resident) Psychiatry 11/02/21 [id number] Miscellaneous Notes* Telephone Encounter - Bib Enriquez [facility] - 04/02/2022 3:21 PM EDT Last visit with Judy Gomez DO (Resident) Psychiatry 11/02/21 documented in this [id number] Telephone encounter Note* Telephone Encounter - Avani Ewing RN - 03/16/2022 9:20 AM EDT Remeron last ordered on 12/27/21 for a 90 day supply with no refills. Pended 90 day supply. [id number] Miscellaneous Notes* Telephone Encounter - Avani Ewing RN - 03/16/2022 9:20 AM EDT Remeron last ordered on 12/27/21 for a 90 day supply with no refills. Pended 90 day supply. * Telephone Encounter - Carolina Noyola - 03/15/2022 2:10 PM EDT Last visit with Psychiatry Tom Montelongo was 02/08/2022 Next visit with Psychiatry (Tom Montelongo) is 05/10/2022 documented in this [id number] Telephone encounter Note* Telephone Encounter - Carolina Noyola - 03/15/2022 2:10 PM EDT Last visit with Psychiatry Tom Montelongo was 02/08/2022 Next visit with Psychiatry (Tom Montelongo) is 05/10/2022 [id number] Miscellaneous Notes* Telephone Encounter - Andria Butler [...] Epic. Leola Schwartz RN documented in this encounterOhiohealth Arthur G.[facility]. [facility]08-01-2022 Miscellaneous Notes* Letter - Mammography Coordinator - 02/20/2022 3:08 PM EDT February 20, 2022 PID: [id number] Felisha Perrin [id number] [facility] [address] [place] [address] Dear Ms. Perrin, We are pleased to [...] report will be kept on [facility] at [facility] as part of your permanent medical record and are available for your continuing care. Thank you for allowing us to help in meeting your health care needs. Sincerely, Dr. Pierce Interpreting Radiologist [facility] (Normal over 40) documented in this encounterOhiohealth Arthur G.H. 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 Per [facility]. Mirtazapine (REMERON) 7.5 mg tablet Take 1 tablet by mouth daily at bedtime. Per [facility]. acetaminophen (TYLENOL EXTRA STRENGTH) 500 mg tablet Take 1,000 mg by mouth every 8 hours as needed. venlafaxine ER (EFFEXOR XR) 75 mg 24 hr capsule Take 75 mg by mouth once daily. Plus 37.5 mg capsule. [facility]. venlafaxine ER (EFFEXOR XR) 37.5 mg 24 hr capsule Take 37.5 mg by mouth once daily. Plus 75 mg capsule. [facility] Psychiat[facility]. mometasone (ELOCON) 0.1 % [...] TABLET Alvarez Montanez MD documented in this encounterOhiohealth Arthur G.[facility]. [facility]08-01-2022 History of Present illness Narrative* Stephanie Hernandes uTest - 02/20/2022 11:30 AM EDT Radiology Service [...] DATA: Not applicable SIGNED BY: Stephanie Hernandes uTest February 20, 2022 11:58 AM documented in this encounterOhiohealth Arthur G.[facility]07-29-2022 Miscellaneous Notes* Telephone Encounter - Melissa Blanca [...] need a blood transfusion. documented in this encounterOhiohealth Arthur G.[facility]. [facility]07-25-2022 Note* Addendum Note - Minnie Edwards MD - 02/13/2022 4:20 PM EDTAddended by: MINNIE EDWARDS on: 02/13/2022 04:20 PM Modules accepted: Level of Service [id number] Note* Addendum Note - Minnie Edwards MD - 02/13/2022 4:20 PM EDTAddended by: MINNIE EDWARDS on: 02/13/2022 04:20 PM Modules accepted: Level of Service [id number] Miscellaneous Notes* Addendum Note - Minnie Edwards MD - 02/13/2022 4:20 PM EDTAddended by: MINNIE EDWARDS on: 02/13/2022 04:20 PM Modules accepted: Level of Service documented in this [id number] History of Present illness Narrative* Minnie Edwards MD - 02/08/2022 9:46 AM EDT Images from the original note were not included. Documentation: Mode: Telephone Patient Patient Work Phone: Patient Cell Preferred phone: [phone] Consent: I confirmed patient understanding of the risks and benefits of telehealth visits and obtained consent to proceed with the telehealth visit. Location of Patient: Home of patient Telephone Encounter This visit was initiated by the patient / provider and the patient and provider interacted in real time. Location of the patient: Home of patient Location of the provider: [facility] Reviewed informed consent with patient: yes - see MR Patient/parent indicated understanding of informed consent: yes see MR Phone numbers Preferred phone #: [phone] Verified number (above) and current location (in [...] dialogue with therapist: Yes Suicide Screener: C-SSRS [place]-Suicide Severity Rating Scale Able to complete [place]-Suicide Severity Rating Scale with Patient?: Yes 1) [...] on CPAP Osteoporosis Prediabetes RA (rheumatoid arthritis) ([facility]) neg RF and CCP on 03/09/15 Restless leg syndrome Stroke ([facility]) Vitamin D deficiency MENTAL HEALTH INTERVENTIONS: Maintain [...] with psychiatry attending Dr. Jerry Montelongo M.D. French Comber PGY-3 Teaching Physician Note: I saw and evaluated the patient. I personally obtained the keith and critical portions of the historyand physical exam. I reviewed the resident's documentation and discussed the patient with the resident. I agree with the resident's medical decision making as documented in the resident's note. Minnie Edwards MD documented in this [id number] Nurse Note* Andria Zepeda Carrie FRANCO - 01/30/2022 6:44 PM EDT Images from the original note were not included. Patient Outreach 01/24/2022 Internal Medicine Aiyana Montanez MD Internal Medicine Transition Of Care Reason for Visit Progress Notes Nohemy Peterson LPN TRANSITION CARE MANAGEMENT (TCM) INITIAL CONTACT Saw Offbearer Outreach Provider Action/FYI: TCM Initial contact with patient post discharge, spoke to patient. Patient identified by name and . TRANSITION CARE MANAGEMENT INITIAL OUTREACH DOCUMENTATION: Date of Outreach: 01/24/2022 Outreach Attempt 1: Contact Made Date of Discharge 01/19/2022 Some recent data might be hidden SUMMARY: -Pt discharged from [facility] on 01/19/22. -Admitted for: fall with [...] review it appears pt gets this from [facility]. Itwas recommended she contact them for this refill. Note Details Additional Documentation Flowsheets: Transitional Care Management Encounter Info: Billing Info, History, Allergies, Detailed Report Pharmacy Benefits No pharmacy benefits on file. Travel Screening and History No documentation. Orders Placed None Medication Changes None Medication List Visit Diagnoses None Problem List documented in this encounterOhiohealth Arthur [facility]07-11-2022 History of Present illness Narrative* Alvarez Montanez MD - 01/30/2022 6:43 PM EDT This note was created using [employer]. Subjective Transitional Care Management Progress Note The [...] and joints hurt when having frequent myoclonus. 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 Per [facility]. Mirtazapine (REMERON) 7.5 mg tablet Take 1 tablet by mouth daily at bedtime. Per [facility]. acetaminophen (TYLENOL EXTRA STRENGTH) 500 mg tablet Take 1,000 mg by mouth every 8 hours as needed. venlafaxine ER (EFFEXOR XR) 75 mg 24 hr capsule Take 75 mg by mouth once daily. Plus 37.5 mg capsule. [facility]. venlafaxine ER (EFFEXOR XR) 37.5 mg 24 hr capsule Take 37.5 mg by mouth once daily. Plus 75 mg capsule. [facility]. mometasone (ELOCON) 0.1 % [...] precautions. She declined SNF. She applied for LONGTERM but was rejected due to co-morbidities. 2. [...] Stable. Alvarez Montanez MD documented in this encounterOhiohealth [facility]07-05-2022 History of Present illness Narrative* Nohemy Peterson JOAN - 01/24/2022 3:14 PM EDT TRANSITION CARE MANAGEMENT (TCM) INITIAL CONTACT Saw Offbearer Outreach Provider Action/FYI: TCM Initial contact with patient post discharge, spoke to patient. Patient identified by name and . TRANSITION CARE MANAGEMENT INITIAL OUTREACH DOCUMENTATION: Date of Outreach: 01/24/2022 Outreach Attempt 1: Contact Made Date of Discharge 01/19/2022 Some recent data might be hidden SUMMARY: -Pt discharged from [facility] on 01/19/22. -Admitted for: fall with [...] review it appears pt gets this from [facility]. Itwas recommended she contact them for this refill. documented in this encounterOhiohealth Arthur [facility]06-29-2022 Miscellaneous Notes* Telephone Encounter - Chase Rosenthal Ma - 01/18/2022 4:33 PM EDT Faxed as requested. Chase Rosenthal Ma * Telephone Encounter - Sofia Holloway - 01/18/2022 10:01 AM EDT [facility] for patient. A number of meds they have on file do not appear on patient's current meds. documented in this encounterOhiohealth Arthur G.[facility]. [facility], [facility] Center06-28-2022 History of Present illness Narrative* Juan Marti RN - 01/17/2022 12:28 PM EDT INSIGHT CD TELEPHONIC OUTREACH Provider Action/FYI: 01/15/22 [facility] ED Flank Pain 01/16/22 Called Pt left a message to verify symptom status and request Pt schedule ED follow up withPCP/ PRINTING WORKER SUPERVISOR. Contact made with patient: No - Left message Maryellen my name is Demario Martinez RN your Charge Accounts Audit Clerk from the [facility] I am callingtoday for your bi-weekly check [...] EDT inSight CD Engagement Provider Action/FYI: 01/15/22 [facility] ED Flank Pain 01/16/22 Called Pt left a message to verify symptom status and request Pt schedule ED follow up withPCP/ PRINTING WORKER SUPERVISOR. Contact Made with Patient: No, first attempt, left message. Maryellen Perrin. This is Demario Martinez RN your Charge Accounts Audit Clerk from the [facility]. I am calling to check in with you concerning the MyChart questionnaire you have been receiving from me. I will call you again tomorrow and am looking forward to speaking with you. (Charge Accounts Audit Clerk enters next day in next patient outreach) Demario Martinez RN January 16, 2022 2:07 PM documented in this encounterOhiohealth Arthur G.[facility]06-23-2022 Telephone encounter Note * Telephone Encounter - [...] No future appointment with PCP (NAS BOOGIE) [id number] Miscellaneous Notes* Telephone Encounter - Faisal Witt [...] with PCP (NAS BOOGIE) documented in this [id number] History of Present illness Narrative* Juan Marti RN - 12/26/2021 4:09 PM EDT inSight CDM Engagement Provider Action/FYI: Routed updates to Dr. Tarik Chadwick with Pt she was seen 12/14/21 at [facility] ED for a UTI, treated with ATB, Pt denies fever or chills, denies blood in her urine or dysuria, Pt reports she is hydrating well, denies needs or concerns. Instructed on the importance of PCP/PRINTING WORKER SUPERVISOR follow up, Pt verbalized understanding. Contact Made with Patient: Yes Patient identified by name and . Discussed care with patient Maryellen chapman name is Demario Martinez RN your Charge Accounts Audit Clerk from [facility] I am reaching out today because [...] I will check back in. ---END CALL Demaroi Martinez RN December 26, 2021 4:09 PM documented in this encounterOhiohealth Arthur [facility]05-04-2022 History of Present illness Narrative* Juan Marti RN - 11/23/2021 4:22 PM EDT inSight CDM Engagement Provider Action/FYI: Routed updates to Dr. Montanez Spsidney with Pt who reports was seen at [facility] ED for a break through seizure, denies missed doses of Keppra, or Depakote ER Pt reported CT of Head Negative for bleeding. Pt denies having any seizure activity Instructed to schedule Appt with PCP/ PRINTING WORKER SUPERVISOR for ED follow up, Pt verbalized understanding. Previous UTI symptoms resolved. Denies new or worsening COPD symptoms Pt denies needs or concerns. Contact Made with Patient: Yes Patient identified by name and . Discussed care with patient Maryellen chapman name is Demario Martinez RN your Charge Accounts Audit Clerk from [facility]. I am reaching out today because [...] 23, 2021 4:22 PM documented in this encounterOhiohealth Arthur [facility]04-07-2022 Miscellaneous Notes* Telephone Encounter - Abbi Felix [...] seen. ROBIN PazGORAN PA-C documented in this encounterOhiohealth Arthur [facility]04-06-2022 History of Present illness Narrative* Stephanie Quiñones [...] 2021 TIME: 3:55 PM documented in this encounterOhiohealth Arthur G.[facility]04-04-2022 Miscellaneous Notes* Telephone Encounter - Nohemy Peterson [...] notify patient. Mckenna Thomas documented in this encounterOhiohealth Arthur G.[facility]. [facility] Center03-29-2022 Miscellaneous Notes* Telephone Encounter - Yari Crockett - 10/18/2021 2:15 PM EDT Left vm pt scheduled with Dr. Pereyra in [place] ofc 11/02/21 @ 2:[address] prior 10/19/21. [place] documented in this encounterOhiohealth Arthur G.[facility]. [facility], [facility] Center03-29-2022 Miscellaneous Notes* Addendum Note - Chilo Matthew PA-C - 10/18/2021 1:50 PM EDT Addended by: CHILO MATTHEW on: 10/18/2021 01:50 PM Modules accepted: Orders documented in this encounterOhiohealth Arthur G.[facility]03-29-2022 History of Present illness Narrative* Chilo Matthew PA-C - 10/18/2021 1:27 PM EDT Images from the original note were not included. [facility] [place] PATIENT INFO: Felisha Perrin 53 year old [facility] # [id number] PCP: Alvarez Montanez MD Referred by: Alvarez [...] problems. Neurologic: No history of TIA's, stroke, MICA PARTS SPRAYER tumor, impaired sensorium, hemiplegia, paraplegia or quadriplegia. [...] ED [facility] Result Value Ref Range Clothes Drier Repairer Provider JAVAN your patient FELISHA PERRIN has NOT started their Curtis program, time has . Curtis program: BREAST BIOPSY: IMAGE-GUIDED NEEDLE (FNA OR CORE) PT ED PATIENT INFORMATION Result Value Ref Range Clothes Drier Repairer Provider JAVAN your patient FELISHA PERRIN has [...] Plan: Appointment with Chilo. documented in this encounterOhiohealth Arthur [facility]03-24-2022 Miscellaneous Notes* Telephone Encounter - Alvarez Montanez MD - 10/13/2021 1:22 PM EDT Noted. * Telephone Encounter - Melina Pineda RN - 10/13/2021 11:30 AM EDT Bita- PT- [facility]- reports they are discharging patient today from PT. Reports patient has reached maximum potential. documented in this encounterOhiohealth Arthur G.[facility] Center12-08-2021 Miscellaneous Notes* Telephone Encounter - Andria Butler LPN - 06/29/2021 1:54 PM EST Left message to call & reschedule missed appt. Andria Butler LPN * Telephone Encounter - Alvarez Montanez MD - 06/25/2021 9:24 AM EST Noted. Patient hester no follow up scheduled after cancellations/no shows. Schedule follow up. * Telephone Encounter - Melina Pineda RN - 06/22/2021 4:53 PM EST [id number] reports she saw patient yesterday for [...] difficult to gait train. documented in this encounterOhiohealth Arthur G.[facility]. [facility], [facility] Center08-05-2021 NoteHNO ID: [id number] Author: RT Maria Isabel(R) Service: ? Author Type: Manager Printing Type: Progress Notes Filed: 02/24/2021 8:37 AM Note Text: Radiology Service Progress Note PATIENT NAME: eFlisha Perrin DATE OF SERVICE: February 24, 2021 [...] RT Maria Isabel(R) February 24, 2021 8:36 [facility]08-05-2021 NoteHNO ID: [id number] Author: RT Cathryn(Noreen) Service: ? Author Type: Manager Printing Type: Progress Notes Filed: 02/24/2021 10:01 AM [...] BY: RT Cathryn(R) February 24, 2021 10:00 [facility]06-21-2021 History of Past illness Narrative* Problem Noted Date Resolved Date Abnormal mammogram 01/10/2021 05/05/2021 Acquired renal cyst 09/03/2018 05/05/2021 Colonic mass 03/02/2017 09/26/2017 Overview: Added automatically from request for surgery [id number] Pulmonary embolism 01/17/2016 05/28/2017 Hypoxemia 01/17/2016 09/26/2017 [...] of this encounter (statuses as of 10/13/2021) [facility]06-21-2021 History of Past illness Narrative* Problem Noted Date Resolved Date Abnormal mammogram 01/10/2021 05/05/2021 Acquired renal cyst 09/03/2018 05/05/2021 Colonic mass 03/02/2017 09/26/2017 Overview: Added automatically from request for surgery [id number] Pulmonary embolism 01/17/2016 05/28/2017 Hypoxemia 01/17/2016 09/26/2017 [...] of this encounter (statuses as of 10/18/2021) [facility]-21-2021 History of Past illness Narrative* Problem Noted Date Resolved Date Abnormal mammogram 01/10/2021 05/05/2021 Acquired renal cyst 09/03/2018 05/05/2021 Colonic mass 03/02/2017 09/26/2017 Overview: Added automatically from request for surgery [id number] Pulmonary embolism 01/17/2016 05/28/2017 Hypoxemia 01/17/2016 09/26/2017 [...] of this encounter (statuses as of 10/18/2021) [facility]-21-20[facility] History of Past illness Narrative* Problem Noted Date Resolved Date Abnormal mammogram 01/10/2021 05/05/2021 Acquired renal cyst 09/03/2018 05/05/2021 Colonic mass 03/02/2017 09/26/2017 Overview: Added automatically from request for surgery [id number] Pulmonary embolism 01/17/2016 05/28/2017 Hypoxemia 01/17/2016 09/26/2017 [...] of this encounter (statuses as of 10/24/2021) [facility] History of Past illness Narrative* Problem Noted Date Resolved Date Abnormal mammogram 01/10/2021 05/05/2021 Acquired renal cyst 09/03/2018 05/05/2021 Colonic mass 03/02/2017 09/26/2017 Overview: Added automatically from request for surgery [id number] Pulmonary embolism 01/17/2016 05/28/2017 Hypoxemia 01/17/2016 09/26/2017 [...] of this encounter (statuses as of 10/27/2021) [facility] History of Past illness Narrative* Problem Noted Date Resolved Date Abnormal mammogram 01/10/2021 05/05/2021 Acquired renal cyst 09/03/2018 05/05/2021 Colonic mass 03/02/2017 09/26/2017 Overview: Added automatically from request for surgery [id number] Pulmonary embolism 01/17/2016 05/28/2017 Hypoxemia 01/17/2016 09/26/2017 [...] of this encounter (statuses as of 10/27/2021) [facility] of Past illness Narrative* Problem Noted Date Resolved Date Abnormal mammogram 01/10/2021 05/05/2021 Acquired renal cyst 09/03/2018 05/05/2021 Colonic mass 03/02/2017 09/26/2017 Overview: Added automatically from request for surgery [id number] Pulmonary embolism 01/17/2016 05/28/2017 Hypoxemia 01/17/2016 09/26/2017 [...] of this encounter (statuses as of 11/16/2021) [facility] of Past illness Narrative* Problem Noted Date Resolved Date Abnormal mammogram 01/10/2021 05/05/2021 Acquired renal cyst 09/03/2018 05/05/2021 Colonic mass 03/02/2017 09/26/2017 Overview: Added automatically from request for surgery [id number] Pulmonary embolism 01/17/2016 05/28/2017 Hypoxemia 01/17/2016 09/26/2017 [...] of this encounter (statuses as of 11/23/2021) [facility] of Past illness Narrative* Problem Noted Date Resolved Date Abnormal mammogram 01/10/2021 05/05/2021 Acquired renal cyst 09/03/2018 05/05/2021 Colonic mass 03/02/2017 09/26/2017 Overview: Added automatically from request for surgery [id number] Pulmonary embolism 01/17/2016 05/28/2017 Hypoxemia 01/17/2016 09/26/2017 [...] of this encounter (statuses as of 12/26/2021) [facility] of Past illness Narrative* Problem Noted Date Resolved Date Abnormal mammogram 01/10/2021 05/05/2021 Acquired renal cyst 09/03/2018 05/05/2021 Colonic mass 03/02/2017 09/26/2017 Overview: Added automatically from request for surgery [id number] Pulmonary embolism 01/17/2016 05/28/2017 Hypoxemia 01/17/2016 09/26/2017 [...] of this encounter (statuses as of 01/17/2022) [facility] of Past illness Narrative* Problem Noted Date Resolved Date Abnormal mammogram 01/10/2021 05/05/2021 Acquired renal cyst 09/03/2018 05/05/2021 Colonic mass 03/02/2017 09/26/2017 Overview: Added automatically from request for surgery [id number] Pulmonary embolism 01/17/2016 05/28/2017 Hypoxemia 01/17/2016 09/26/2017 [...] of this encounter (statuses as of 01/18/2022) [facility] of Past illness Narrative* Problem Noted Date Resolved Date Abnormal mammogram 01/10/2021 05/05/2021 Acquired renal cyst 09/03/2018 05/05/2021 Colonic mass 03/02/2017 09/26/2017 Overview: Added automatically from request for surgery [id number] Pulmonary embolism 01/17/2016 05/28/2017 Hypoxemia 01/17/2016 09/26/2017 [...] of this encounter (statuses as of 01/24/2022) [facility] of Past illness Narrative* Problem Noted Date Resolved Date Abnormal mammogram 01/10/2021 05/05/2021 Acquired renal cyst 09/03/2018 05/05/2021 Colonic mass 03/02/2017 09/26/2017 Overview: Added automatically from request for surgery [id number] Pulmonary embolism 01/17/2016 05/28/2017 Hypoxemia 01/17/2016 09/26/2017 [...] of this encounter (statuses as of 01/31/2022) [facility] of Past illness Narrative* Problem Noted Date Resolved Date Abnormal mammogram 01/10/2021 05/05/2021 Acquired renal cyst 09/03/2018 05/05/2021 Colonic mass 03/02/2017 09/26/2017 Overview: Added automatically from request for surgery [id number] Pulmonary embolism 01/17/2016 05/28/2017 Hypoxemia 01/17/2016 09/26/2017 [...] of this encounter (statuses as of 02/17/2022) [facility] of Past illness Narrative* Problem Noted Date Resolved Date Abnormal mammogram 01/10/2021 05/05/2021 Acquired renal cyst 09/03/2018 05/05/2021 Colonic mass 03/02/2017 09/26/2017 Overview: Added automatically from request for surgery [id number] Pulmonary embolism 01/17/2016 05/28/2017 Hypoxemia 01/17/2016 09/26/2017 [...] of this encounter (statuses as of 02/20/2022) [facility] of Past illness Narrative* Problem Noted Date Resolved Date Abnormal mammogram 01/10/2021 05/05/2021 Acquired renal cyst 09/03/2018 05/05/2021 Colonic mass 03/02/2017 09/26/2017 Overview: Added automatically from request for surgery [id number] Pulmonary embolism 01/17/2016 05/28/2017 Hypoxemia 01/17/2016 09/26/2017 [...] of this encounter (statuses as of 02/21/2022) [facility] of Past illness Narrative* Problem Noted Date Resolved Date Abnormal mammogram 01/10/2021 05/05/2021 Acquired renal cyst 09/03/2018 05/05/2021 Colonic mass 03/02/2017 09/26/2017 Overview: Added automatically from request for surgery [id number] Pulmonary embolism 01/17/2016 05/28/2017 Hypoxemia 01/17/2016 09/26/2017 [...] of this encounter (statuses as of 02/22/2022) [facility] of Past illness Narrative* Problem Noted Date Resolved Date Abnormal mammogram 01/10/2021 05/05/2021 Acquired renal cyst 09/03/2018 05/05/2021 Colonic mass 03/02/2017 09/26/2017 Overview: Added automatically from request for surgery [id number] Pulmonary embolism 01/17/2016 05/28/2017 Hypoxemia 01/17/2016 09/26/2017 [...] of this encounter (statuses as of 03/13/2022) [facility] of Past illness Narrative* Problem Noted Date Resolved Date Abnormal mammogram 01/10/2021 05/05/2021 Acquired renal cyst 09/03/2018 05/05/2021 Colonic mass 03/02/2017 09/26/2017 Overview: Added automatically from request for surgery [id number] Pulmonary embolism 01/17/2016 05/28/2017 Hypoxemia 01/17/2016 09/26/2017 [...] of this encounter (statuses as of 05/24/2022) [facility] of Past illness Narrative* Problem Noted Date Resolved Date Abnormal mammogram 01/10/2021 05/05/2021 Acquired renal cyst 09/03/2018 05/05/2021 Colonic mass 03/02/2017 09/26/2017 Overview: Added automatically from request for surgery [id number] Pulmonary embolism 01/17/2016 05/28/2017 Hypoxemia 01/17/2016 09/26/2017 [...] of this encounter (statuses as of 06/28/2022) [facility] of Past illness Narrative* Problem Noted Date Resolved Date Abnormal mammogram 01/10/2021 05/05/2021 Acquired renal cyst 09/03/2018 05/05/2021 Colonic mass 03/02/2017 09/26/2017 Overview: Added automatically from request for surgery [id number] Pulmonary embolism 01/17/2016 05/28/2017 Hypoxemia 01/17/2016 09/26/2017 [...] of this encounter (statuses as of 07/29/2022) [facility] of Past illness Narrative* Problem Noted Date Diagnosed Date Resolved Date Abnormal mammogram 01/10/2021 Acquired renal cyst 09/03/2018 05/05/20 21 Colonic mass 03/02/2017 09/26/2017 Overview: Added automatically from request for surgery [id number] Pulmonary embolism 01/17/2016 7 Hypoxemia 01/17/2016 09/26/2017 [...] of this encounter (statuses as of 02/28/2023) [facility] of Past illness Narrative* Problem Noted Date Diagnosed Date Resolved Date Abnormal mammogram 01/10/2021 1 Acquired renal cyst 09/03/2018 05/05/20 21 Colonic mass 03/02/2017 09/26/2017 Overview: Added automatically from request for surgery [id number] Pulmonary embolism 01/17/2016 7 Hypoxemia 01/17/2016 09/26/2017 [...] of this encounter (statuses as of 05/27/2023) [facility] of Past illness Narrative* Problem Noted Date Diagnosed Date Resolved Date Abnormal mammogram 01/10/2021 1 Acquired renal cyst 09/03/2018 05/05/20 21 Colonic mass 03/02/2017 09/26/2017 Overview: Added automatically from request for surgery [id number] Pulmonary embolism 01/17/2016 7 Hypoxemia 01/17/2016 09/26/2017 [...] of this encounter (statuses as of 09/13/2023) [facility] of Past illness Narrative* Problem Noted Date Diagnosed Date Resolved Date Abnormal mammogram 01/10/2021 1 Acquired renal cyst 09/03/2018 05/05/20 21 Colonic mass 03/02/2017 09/26/2017 Overview: Added automatically from request for surgery [id number] Pulmonary embolism 01/17/2016 7 Hypoxemia 01/17/2016 09/26/2017 [...] of this encounter (statuses as of 10/13/2023) [facility] of Past illness Narrative* Problem Noted Date Diagnosed Date Resolved Date Abnormal mammogram 01/10/2021 1 Acquired renal cyst 09/03/2018 05/05/20 21 Colonic mass 03/02/2017 09/26/2017 Overview: Added automatically from request for surgery [id number] Pulmonary embolism 01/17/2016 7 Hypoxemia 01/17/2016 09/26/2017 [...] of this encounter (statuses as of 10/15/2023) [facility] of Past illness Narrative* Problem Noted Date Diagnosed Date Resolved Date Abnormal mammogram 01/10/2021 1 Acquired renal cyst 09/03/2018 05/05/20 21 Colonic mass 03/02/2017 09/26/2017 Overview: Added automatically from request for surgery [id number] Pulmonary embolism 01/17/2016 7 Hypoxemia 01/17/2016 09/26/2017 [...] of this encounter (statuses as of 11/02/2023) [facility] of Past illness Narrative* Problem Noted Date Diagnosed Date Resolved Date Abnormal mammogram 01/10/2021 1 Acquired renal cyst 09/03/2018 05/05/20 21 Colonic mass 03/02/2017 09/26/2017 Overview: Added automatically from request for surgery [id number] Pulmonary embolism 01/17/2016 7 Hypoxemia 01/17/2016 09/26/2017 [...] of this encounter (statuses as of 11/06/2023) [facility]* Diagnosis Gross hematuria- Primary Recurrent UTI Urinary tract infection, site not specified documented in this encounter [facility]* Diagnosis Onset Date Resolution Status LEIGH ANN (acute kidney injury) re solved Hematemesis resolved Pneumonia resolved UTI (urinary tract infection) resolved Weakness resolved Anemia acute Fatty liver acute Melena acute Abdominal pain acute Anemia acute Fatty liver acute Hematemesis acute Melena acute [facility] Work Phone: Evaluation note* Diagnosis Asthma with chronic obstructive pulmonary disease (COPD) (HCC) Chronic obstructive asthma, unspecified documented in this encounter [facility]* Diagnosis Gross hematuria documented in this encounter 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 [facility] Work Phone: Evaluation note* Diagnosis [...] with action induced myoclonus chronic Polyneuropathy chronic [facility] Work Phone: Evaluation note* Diagnosis Onset Date Resolution Status Anemia acute Fatty liver acute Melena acute Abdominal pain acute Anemia acute Fatty liver acute Hematemesis acute Melena acute Epilepsy chronic Hypoxic brain injury chronic 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 Fatigue chronic Hypoxic brain injury chronic 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 [facility] Work Phone: Evaluation note* Diagnosis Onset Date Resolution Status Abdominal pain acute Anemia acute Fatty liver acute Hematemesis acute Melena acute Epilepsy chronic Hypoxic brain injury chronic 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 Fatigue chronic Hypoxic brain injury chronic 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 Concussion acute FTT (failure to thrive) in adult acute [facility] Work Phone: Evaluation note* Diagnosis [...] Acute on chronic blood loss anemia chronic [facility] Work Phone: Evaluation note* Diagnosis Onset Date Resolution Status Abdominal pain acute Anemia acute Fatty liver acute Hematemesis acute Melena acute Epilepsy chronic Hypoxic brain injury chronic 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 Diagnosis Obesity, Class III, BMI >= 40 Morbid obesity Ductal carcinoma in situ (DCIS) of left breast Encounter for screening mammogram for malignant neoplasm of breast Other screening mammogram 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 Falls frequently acute Acute on chronic blood loss anemia resolved Contusion, chest wall resolv ed Headache resolved [facility] Work Phone: Evaluation note* Diagnosis [...] in left arm noneactive Chronic anemia noneactive [facility] Work Phone: Evaluation note* Diagnosis Anxiety Anxiety state, unspecified Major depressive disorder, recurrent episode with anxious distress (HCC) [facility] Asthma with chronic obstructive pulmonary disease (COPD) ([facility]) Chronic obstructive asthma, unspecified [facility] Diagnosis Onset Date Resolution Status Falls [...] chronic Obesity chronic STEPHANIE (obstructive sleep apnea) [facility] Work Phone: Evaluation note* Diagnosis Onset Date [...] chronic Obesity chronic STEPHANIE (obstructive sleep apnea) [facility] Work Phone: Evaluation note* Diagnosis Anxiety Anxiety state, unspecified Major depressive disorder, recurrent episode with anxious distress (HCC) [facility] Diagnosis Anxiety Anxiety state, unspecified Major depressive disorder, recurrent episode with anxious distress (HCC) [facility] Diagnosis Asthma with chronic obstructive pulmonary disease (COPD) (HCC) Chronic obstructive asthma, unspecified [facility] Diagnosis Essential hypertension Unspecified essential hypertension Mixed hyperlipidemia Gastroesophageal reflux disease without esophagitis Esophageal reflux Asthma with chronic obstructive pulmonary disease (COPD) (HCC) Chronic obstructive asthma, unspecified 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 History of breast cancer non eactive History of blood clots nonea ctive Immunization due noneactive Chronic pain noneactive Essential hypertension nonea ctive Left flank pain noneactive Screening for breast cancer noneactive Chronic anemia noneactive [facility] Work Phone: Evaluation note* Diagnosis Asthma with chronic obstructive pulmonary disease (COPD)- Primary Chronic obstructive asthma, unspecified [facility] Work Phone: Hospital Discharge instructionsW[facility] Work Phone: Hospital Discharge instructions Additional [...] the nearest emergency department Date of Discharge: 06/06/22[facility] Work Phone: Hospital Discharge instructions Additional Instructions Your hemoglobin was 7.8 today. You do not require transfusions from the emergency department.[facility] Work Phone: Hospital Discharge instructions Additional Instructions Continue your oxycodone for analgesia. Wear your splint for the next week, you may remove it for bathing or sleeping if needed. Continue ice and elevation of your left wrist and hand when possible.[facility] Work Phone: Hospital Discharge instructionsAmbulatory Orders* Home Health Location: None Selected [facility] Work Phone: Reason for referral (narrative)* Diagnostic Procedure Only (Routine) - Authorized Specialty Diagnoses / Procedures Referred By Alexander hooper Referred To Contact US IMAGING Diagnoses Left leg pain Procedures US DVT LOWER LT DUP-SCAN XTR VEINS UNILATERAL/LIMITED STUDY Alvarez Montanez MD [address] [place] [address] Us Imaging Referral ID Status Reason Start Date Expiration Date Visits Requested Visits Authorized [id number] Authorized Auto-Generat ed Referral 02/20/2022 03/22/2023 1 1 [facility] for referral (narrative)* Diagnostic Procedure [...] INC Isela Malone MD [address] [place] [address] Br Imaging [address] [place] [address] Referral ID Status Reason Start Date Expiration Date V isits Requested Visits Authorized [id number] Closed Auto-Generate d Referral 02/19/2022 09/21/2022 1 1 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 Summary Purpose Family History No Family History [...] FoundDocuments on File Type Date Recorded Patient Vp Revenue Cycle Expl anation Advance Directive(s) 03/14/2017 9:50 AM Documents on File Type Date Recorded Patient Vp Revenue Cycle Expl anation Advance Directive(s) 03/14/2017 9:50 AM Advance Directive Response Recorded Date/ Time Advance Directives No May 03, 2021 9:40am Living Will No September 22, 2021 7:13pm Power of Residency Director No September 22 7:13pm Advance Directive Response Recorded Date/ Time Advance Directives No May 03, 2021 9:40am Living Will No November 03, 2021 5:26pm Power of Residency Director No Angelika 14th, 20 22 5:26pm Advance Directive Response Recorded Date/ Time Advance Directives No May 03, 2021 9:40am Living Will No December 14, 2021 1 :28pm Power of Residency Director No December 14, 2021 1:28pm Advance Directive Response Recorded Date/ Time Advance Directives No May 03, 2021 9:40am Living Will No January 10, 2022 6:28pm Power of Residency Director No January 10 6:28pm Advance Directive Response Recorded Date/ Time Advance Directives No May 03, 2021 9:40am Living Will No January 17, 2022 11:39pm Power of Residency Director No January 17 11:39pm Advance Directive Response Recorded Date/ Time Advance Directives No May 03, 2021 9:40am Living Will No January 18, 2022 4:13am Power of Residency Director No January 18 4:13am Advance Directive Response Recorded Date/ Time Advance Directives No May 03, 2021 9:40am Living Will No January 15, 2022 7:24pm Power of Residency Director No January 15 7:24pm Advance Directive Response Recorded Date/ Time Advance Directives No May 03, 2021 9:40am Living Will No February 12, 2022 3:39pm Power of Residency Director No February 12 3:39pm Advance Directive Response Recorded Date/ Time Advance Directives No May 03, 2021 9:40am Living Will No March 06 2 6:27pm Power of Residency Director No March 06 2 022 6:27pm Advance Directive Response Recorded Date/ Time Advance Directives No May 03, 2021 9:40am Living Will No March 15 2 5:47pm Power of Residency Director No March 15 2 022 5:47pm Advance Directive Response Recorded Date/ Time Advance Directives No May 03, 2021 9:40am Living Will No March 19 2 2:31pm Power of Residency Director No March 19 2 022 2:31pm Advance Directive Response Recorded Date/ Time Advance Directives No May 03, 2021 9:40am Living Will No April 01, 2022 12:53pm Power of Residency Director No March 12:53pm Advance Directive Response Recorded Date/ Time Name of Medical Power of Residency Director SISTER IN LAW June 05, 2022 9:06pm Advance Directives No May 03, 2021 8:40am Living Will Yes June 05, 022 9:06pm Power of Residency Director Yes June 05, 2022 9:06pm Advance Directive Response Recorded Date/ Time Name of Medical Power of Residency Director Deanne Bradshaw June 06, 2022 2:57am Advance Directives No May 03, 2021 8:40am Living Will No June 06, 022 2:57am Power of Residency Director Yes June 06, 2022 2:57am Advance Directive Response Recorded Date/ Time Advance Directives No May 03, 2021 9:40am Living Will No February 07, 2023 10:10pm Power of Residency Director No February 07 10:10pm Advance Directive Response Recorded Date/ Time Advance Directives No May 03, 2021 8:40am Living Will No July 02, 023 9:41pm Power of Residency Director No July 02, 2023 9:41pm Advance Directive Response Recorded Date/ Time Living Will No August 13 1:54am Do you have a Healthcare Power of Residency Director? No August 13, 2024 1:54am Do you have a Healthcare Power of Residency Director? No November 20, 2024 11:46am Advance Directives No May 03, 2021 9:40am Advance Directive Response Recorded Date/ Time Do you have a Healthcare Power of Residency Director? No November 20, 2024 11:46am Advance Directives No May 03, 2021 9:40am Reason for Referral Specialty Diagnoses / Procedures Referred By Alexander t Referred To Contact CT IMAGING Diagnoses Gross hematuria Procedures CT UROGRAM WO/W IVCON CT ABD & PELVIS W/O CONTRST 1+ BODY Chilo Young PA-C [address] [place] [address] Ct Imaging Referral ID Status Reason Start Date Expiration Date Visits Requested Visits Authorized [id number] Authorized Auto-Generat ed Referral 10/19/2021 11/17/2022 1 1 Referral ID Status Reason Start Date Expiration Date V isits Requested Visits Authorized [id number] Closed Auto-Generate d Referral 10/19/2021 11/17/2022 1 1 Specialty Diagnoses / Procedures Referred By Alexander hooper Referred To Contact Psychology Diagnoses Anxiety Major depressive disorder, recurrent episode with anxious distress (HCC) Bereavement Minnie Edwards MD [address] [place] [address] S [facility] [address] [place] [address] Referral ID Status Reason Start Date Expiration Date V isits Requested Visits Authorized [id number] Authorized 02/08/2022 02/08/2023 3 3 Scheduling Instructions Please contact or go to the [facility] desk to schedule an appointment. 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 ppw SOB FALL Chest [...] FALLS, ADULT FTT Januar y 2024 7:37am [facility] August 28, 2024 3 :19pm [...] Date High Risk Chronic Disease Home Monitoring [facility] 12/05/2022 Active Problems Noted Date Diagnosed Date High Risk Chronic Disease Home Monitoring [facility] 12/05/2022 Active Problems Noted Date Diagnosed Date High Risk Chronic Disease Home Monitoring [facility] 12/05/2022 Additional Source Comments INFORMATION SOURCE (unrecogn ized section and content) DATE CREATED AUTHOR 01/16/2018 [facility] DATE CREATED AUTHOR AUTHOR'S ORGANIZ ATION 12/19/2020 [facility] DATE CREATED AUTHOR AUTHOR'S ORGANIZ ATION 02/23/2022 [facility] DATE CREATED AUTHOR AUTHOR'S ORGANIZ ATION 08/15/2022 [facility] DATE CREATED AUTHOR AUTHOR'S ORGANIZ ATION 01/18/2024 [facility] DATE CREATED AUTHOR AUTHOR'S ORGANIZ ATION 02/24/2025 [facility] Source Comments (unrecognize d section and content) In the event this informatio n is protected by the Federal Confidentiality of Alcohol and Drug Abuse Patient Records regulations: The Federal rules restrict any use of the information to criminally investigate or prosecute any alcohol or drug abuse patient.[facility] CenterIn the event this information is protected by the Federal Confidentiality of Alcohol and Drug Abuse Patient Records regulations: The Federal rules restrict any use of the information to criminally investigate or prosecute any alcohol or drug abuse patient.[facility] CenterIn the event this information is protected by the Federal Confidentiality of Alcohol and Drug Abuse Patient Records regulations: The Federal rules restrict any use of the information to criminally investigate or prosecute any alcohol or drug abuse patient.[facility] CenterIn the event this information is protected by the Federal Confidentiality of Alcohol and Drug Abuse Patient Records regulations: The Federal rules restrict any use of the information to criminally investigate or prosecute any alcohol or drug abuse patient.[facility] CenterIn the event this information is protected by the Federal Confidentiality of Alcohol and Drug Abuse Patient Records regulations: The Federal rules restrict any use of the information to criminally investigate or prosecute any alcohol or drug abuse patient.[facility] CenterIn the event this information is protected by the Federal Confidentiality of Alcohol and Drug Abuse Patient Records regulations: The Federal rules restrict any use of the information to criminally investigate or prosecute any alcohol or drug abuse patient.[facility] CenterIn the event this information is protected by the Federal Confidentiality of Alcohol and Drug Abuse Patient Records regulations: The Federal rules restrict any use of the information to criminally investigate or prosecute any alcohol or drug abuse patient.[facility] CenterIn the event this information is protected by the Federal Confidentiality of Alcohol and Drug Abuse Patient Records regulations: The Federal rules restrict any use of the information to criminally investigate or prosecute any alcohol or drug abuse patient.[facility] CenterIn the event this information is protected by the Federal Confidentiality of Alcohol and Drug Abuse Patient Records regulations: The Federal rules restrict any use of the information to criminally investigate or prosecute any alcohol or drug abuse patient.[facility] CenterIn the event this information is protected by the Federal Confidentiality of Alcohol and Drug Abuse Patient Records regulations: The Federal rules restrict any use of the information to criminally investigate or prosecute any alcohol or drug abuse patient.[facility] CenterIn the event this information is protected by the Federal Confidentiality of Alcohol and Drug Abuse Patient Records regulations: The Federal rules restrict any use of the information to criminally investigate or prosecute any alcohol or drug abuse patient.[facility] CenterIn the event this information is protected by the Federal Confidentiality of Alcohol and Drug Abuse Patient Records regulations: The Federal rules restrict any use of the information to criminally investigate or prosecute any alcohol or drug abuse patient.[facility] CenterIn the event this information is protected by the Federal Confidentiality of Alcohol and Drug Abuse Patient Records regulations: The Federal rules restrict any use of the information to criminally investigate or prosecute any alcohol or drug abuse patient.[facility] CenterIn the event this information is protected by the Federal Confidentiality of Alcohol and Drug Abuse Patient Records regulations: The Federal rules restrict any use of the information to criminally investigate or prosecute any alcohol or drug abuse patient.[facility] CenterIn the event this information is protected by the Federal Confidentiality of Alcohol and Drug Abuse Patient Records regulations: The Federal rules restrict any use of the information to criminally investigate or prosecute any alcohol or drug abuse patient.[facility] CenterIn the event this information is protected by the Federal Confidentiality of Alcohol and Drug Abuse Patient Records regulations: The Federal rules restrict any use of the information to criminally investigate or prosecute any alcohol or drug abuse patient.[facility] CenterIn the event this information is protected by the Federal Confidentiality of Alcohol and Drug Abuse Patient Records regulations: The Federal rules restrict any use of the information to criminally investigate or prosecute any alcohol or drug abuse patient.[facility] CenterIn the event this information is protected by the Federal Confidentiality of Alcohol and Drug Abuse Patient Records regulations: The Federal rules restrict any use of the information to criminally investigate or prosecute any alcohol or drug abuse patient.[facility] CenterIn the event this information is protected by the Federal Confidentiality of Alcohol and Drug Abuse Patient Records regulations: The Federal rules restrict any use of the information to criminally investigate or prosecute any alcohol or drug abuse patient.[facility] CenterIn the event this information is protected by the Federal Confidentiality of Alcohol and Drug Abuse Patient Records regulations: The Federal rules restrict any use of the information to criminally investigate or prosecute any alcohol or drug abuse patient.[facility] CenterIn the event this information is protected by the Federal Confidentiality of Alcohol and Drug Abuse Patient Records regulations: The Federal rules restrict any use of the information to criminally investigate or prosecute any alcohol or drug abuse patient.[facility] CenterIn the event this information is protected by the Federal Confidentiality of Alcohol and Drug Abuse Patient Records regulations: The Federal rules restrict any use of the information to criminally investigate or prosecute any alcohol or drug abuse patient.[facility] CenterIn the event this information is protected by the Federal Confidentiality of Alcohol and Drug Abuse Patient Records regulations: The Federal rules restrict any use of the information to criminally investigate or prosecute any alcohol or drug abuse patient.[facility] CenterIn the event this information is protected by the Federal Confidentiality of Alcohol and Drug Abuse Patient Records regulations: The Federal rules restrict any use of the information to criminally investigate or prosecute any alcohol or drug abuse patient.[facility] CenterIn the event this information is protected by the Federal Confidentiality of Alcohol and Drug Abuse Patient Records regulations: The Federal rules restrict any use of the information to criminally investigate or prosecute any alcohol or drug abuse patient.[facility] CenterIn the event this information is protected by the Federal Confidentiality of Alcohol and Drug Abuse Patient Records regulations: The Federal rules restrict any use of the information to criminally investigate or prosecute any alcohol or drug abuse patient.[facility] CenterIn the event this information is protected by the Federal Confidentiality of Alcohol and Drug Abuse Patient Records regulations: The Federal rules restrict any use of the information to criminally investigate or prosecute any alcohol or drug abuse patient.[facility] CenterIn the event this information is protected by the Federal Confidentiality of Alcohol and Drug Abuse Patient Records regulations: The Federal rules restrict any use of the information to criminally investigate or prosecute any alcohol or drug abuse patient.[facility] CenterIn the event this information is protected by the Federal Confidentiality of Alcohol and Drug Abuse Patient Records regulations: The Federal rules restrict any use of the information to criminally investigate or prosecute any alcohol or drug abuse patient.[facility] CenterIn the event this information is protected by the Federal Confidentiality of Alcohol and Drug Abuse Patient Records regulations: The Federal rules restrict any use of the information to criminally investigate or prosecute any alcohol or drug abuse patient.[facility] CenterIn the event this information is protected by the Federal Confidentiality of Alcohol and Drug Abuse Patient Records regulations: The Federal rules restrict any use of the information to criminally investigate or prosecute any alcohol or drug abuse patient.[facility] Reason for Visit (unrecogniz ed section and content) Reason Comments FYI: Discharged today Reason Comments Follow Up Reason Comments Appointment Reason Onset Date Comments Refill Request 10/24/[address] Specialty Diagnoses / Procedures Referred By Contac t Referred To Contact CT IMAGING Diagnoses Gross hematuria Procedures CT UROGRAM WO/W IVCON CT ABD & PELVIS W/O CONTRST 1+ BODY Chilo Young PA-C [address] [place] [address] Ct Imaging Referral ID Status Reason Start Date Expiration Date V isits Requested Visits Authorized [id number] Closed Auto-Generate d Referral 10/19/2021 11/17/2022 1 [...] Care Teams (unrecognized sec tion and content) Shingle Carrier Relationship Specialty Start Date End Date Alvarez Montanez MD [address] [place], [place] [id number] PCP - General Internal Medicine 12/21/15 Rajani Stewart [address] [facility] [address] [place], [place] [id number] Psychiatry 04/25/17 Isiah Barker MD, [address] [place], [place] [address] Physician Radiation Oncology 06/27/21 Juan Mrati, repair service clerkLead Worker Of Housekeeping And Laundry Internal Medicine 09/21/21 Shingle Carrier Relationship Specialty Start Date End Date Alvarez Montanez MD [address] [place], [place] [address] PCP - General Internal Medicine 12/21/15 Rajani Stewart [address] [facility] [address] [place], [place] [id number] Psychiatry 04/25/17 Isiah Barker MD, [address] [facility] [place] [address] Physician Radiation Oncology 06/27/21 Juan Marti, repair service clerkLead Worker Of Housekeeping And Laundry Internal Medicine 09/21/21 Shingle Carrier Relationship Specialty Start Date End Date Alvarez Montanez MD [address] [place] [address] PCP - General Internal Medicine 12/21/15 Rajani Stewart [address] [facility] [address] [place] [address] Psychiatry 04/25/17 Isiah Barker MD, [address] [place] [facility] [place] [address] Physician Radiation Oncology 06/27/21 Juan Marti, repair service clerkLead Worker Of Housekeeping And Laundry Internal Medicine 09/21/21 Shingle Carrier Relationship Specialty Start Date End Date Alvarez Montanez MD [address] [place] [address] PCP - General Internal Medicine 12/21/15 Rajani Stewart [address] [facility] [address] [place] [address] Psychiatry 04/25/17 Isiah Barker MD, [address] [place] [facility] [place] [address] Physician Radiation Oncology 06/27/21 Juan Marti, repair service clerkLead Worker Of Housekeeping And Laundry Internal Medicine 09/21/21 Shingle Carrier Relationship Specialty Start Date End Date Alvarez Montanez MD [address] [place] [address] PCP - General Internal Medicine 12/21/15 Rajani Stewart [address] [facility] [address] [place] [address] Psychiatry 04/25/17 Isiah Barker MD, [address] [place] [address] Physician Radiation Oncology 06/27/21 Juan Marti, repair service clerkLead Worker Of Housekeeping And Laundry Internal Medicine 09/21/21 Shingle Carrier Relationship Specialty Start Date End Date Alvarez Montanez MD [address] [place] [address] PCP - General Internal Medicine 12/21/15 Rajani Stewart [address] [facility] [address] [place] [address] Psychiatry 04/25/17 Isiah Barker MD, [address] [place] [address] Physician Radiation Oncology 06/27/21 Juan Marti, repair service clerkLead Worker Of Housekeeping And Laundry Internal Medicine 09/21/21 Shingle Carrier Relationship Specialty Start Date End Date Alvarez Montanez MD [address] [place] [address] PCP - General Internal Medicine 12/21/15 Rajani Stewart [address] [facility] [address] [place] [address] Psychiatry 04/25/17 Isiah Barker MD, [address] [facility] [place] [address] Physician Radiation Oncology 06/27/21 Juan Marti repair service clerkLead Worker Of Housekeeping And Laundry Internal Medicine 09/21/21 Shingle Carrier Relationship Specialty Start Date End Date Alvarez Montanez MD [address] [place] [address] PCP - General Internal Medicine 12/21/15 Rajani Stewart [address] [place] [address] [address] [place] [address] Psychiatry 04/25/17 Isiah Barker MD, [address] [place] [address] Physician Radiation Oncology 06/27/21 Juan Marti, repair service clerkLead Worker Of Housekeeping And Laundry Internal Medicine 09/21/21 Shingle Carrier Relationship Specialty Start Date End Date Alvarez Montanez MD [address] [place] [address] PCP - General Internal Medicine 12/21/15 Rajani Stewart [address] [place] [address] [address] [place] [address] Psychiatry 04/25/17 Isiah Barker MD, [address] [facility] [place] [address] Physician Radiation Oncology 06/27/21 Juan Marti, repair service clerkLead Worker Of Housekeeping And Laundry Internal Medicine 09/21/21 Shingle Carrier Relationship Specialty Start Date End Date Nas Boogie DO [address] [place], [place] [id number] PCP - General 01/06/20 Shingle Carrier Relationship Specialty Start Date End Date Alvarez Montanez MD [address] [place] [address] PCP - General Internal Medicine 12/21/15 [facility] [address] [place] [address] [address] [place] [address] Psychiatry 04/25/17 Isiah Barker MD, [address] [place] [address] Physician Radiation Oncology 06/27/21 Juan Marti, repair service clerkLead Worker Of Housekeeping And Laundry Internal Medicine 09/21/21 Shingle Carrier Relationship Specialty Start Date End Date Imani Geiger MD [address] [facility] [place] [address] PCP - General 01/17/22 Shingle Carrier Relationship Specialty Start Date End Date Alvarez Montanez MD [address] [place] [address] PCP - General Internal Medicine 12/21/15 Rajani Stewart [address] [facility] [address] [place] [address] Psychiatry 04/25/17 Isiah Barker MD, [address] [facility] [place] [address] Physician Radiation Oncology 06/27/21 Juan Marti, repair service clerkLead Worker Of Housekeeping And Laundry Internal Medicine 09/21/21 Shingle Carrier Relationship Specialty Start Date End Date Alvarez Montanez MD [address] [place] [address] PCP - General Internal Medicine 12/21/15 Rajani Stewart [address] [facility] [address] [place] [address] Psychiatry 04/25/17 Isiah Barker MD, [address] [facility] [place] [address] Physician Radiation Oncology 06/27/21 Juan Marti, repair service clerkLead Worker Of Housekeeping And Laundry Internal Medicine 09/21/21 Shingle Carrier Relationship Specialty Start Date End Date Alvarez Montanez MD [address] [place] [address] PCP - General Internal Medicine 12/21/15 Rajani Stewart [address] [facility] [address] [place] [address] Psychiatry 04/25/17 Isiah Barker MD, [address] [place] [address] Physician Radiation Oncology 06/27/21 Juan Marti, repair service clerkLead Worker Of Housekeeping And Laundry Internal Medicine 09/21/21 Shingle Carrier Relationship Specialty Start Date End Date Alvarez Montanez MD [address] [place] [address] PCP - General Internal Medicine 12/21/15 Rajani Stewart [address] [facility] [address] [place] [address] Psychiatry 04/25/17 Isiah Barker MD, [address] [place] [address] Physician Radiation Oncology 06/27/21 Juan Marit, repair service clerkLead Worker Of Housekeeping And Laundry Internal Medicine 09/21/21 Shingle Carrier Relationship Specialty Start Date End Date Imani Geiger MD [address] [facility] [place] [address] PCP - General 01/17/22 Shingle Carrier Relationship Specialty Start Date End Date Imani Geiger MD [address] [facility] [place] [address] PCP - General 01/17/22 Shingle Carrier Relationship Specialty Start Date End Date Alvarez Montanez MD [address] [place] [address] PCP - General Internal Medicine 12/21/15 Rajani Stewart [address] [facility] [address] [place] [address] Psychiatry 04/25/17 Isiah Barker MD, [address] [place] [address] Physician Radiation Oncology 06/27/21 Juan Marti, repair service clerkLead Worker Of Housekeeping And Laundry Internal Medicine 09/21/21 Shingle Carrier Relationship Specialty Start Date End Date Imani Geiger MD [address] [facility] [place] [address] PCP - General 01/17/22 Shingle Carrier Relationship Specialty Start Date End Date Imani Geiger MD [address] [facility] [place] [address] PCP - General 01/17/22 Shingle Carrier Relationship Specialty Start Date End Date Imani Geiger MD [address] [facility] [place] [address] PCP - General 01/17/22 Shingle Carrier Relationship Specialty Start Date End Date Alvarez Montanez MD [address] [place] [address] PCP - General Internal Medicine 12/21/15 Rajani Stewart [address] [facility] [address] [place] [address] Psychiatry 04/25/17 Isiah Barker MD, [address] [place] [address] Physician Radiation Oncology 06/27/21 Demario Martinez, repair service clerkLead Worker Of Housekeeping And Laundry Internal Medicine 09/21/21 Shingle Carrier Relationship Specialty Start Date End Date Alvarez Montanez MD [address] [place] [address] PCP - General Internal Medicine 12/21/15 Rajani Stewart [address] [facility] [address] [place] [address] Psychiatry 04/25/17 Isiah Barker MD, [address] [place], [place] [address] Physician Radiation Oncology 06/27/21 Demario Martinez, repair service clerkLead Worker Of Housekeeping And Laundry Internal Medicine 09/21/21 Team Status: Active Member [...] Marilee Yu MD Primary Care Provider Active Shingle Carrier Relationship Specialty Start Date End Date Alvarez Montanez MD [address] [place], [place] [address] PCP - General Internal Medicine 12/21/15 Rajani Stewart [address] [facility] [address] [place] [address] Psychiatry 04/25/17 Isiah Barker MD, MD [address] [place], [place] [address] Physician Radiation Oncology 06/27/21 Demario Martinez RN Lead Worker Of Housekeeping And Laundry Internal Medicine 09/21/21 Team Status: Inactive Member Role Status Dates Dr. Marilee Yu MD Primary Care Provider, Referring Provider Active Dr. Ysabel Ruffin MD Attending Provider Active Team Status: Inactive Member Role Status Dates Dr. Marilee Yu MD Primary Care Provider Active Callum Knutson MD Referring Provider, Emergency Provid er Active Shingle Carrier Relationship Specialty Start Date End Date Alvarez Montanez MD [address] [facility], [place] [address] PCP - General Internal Medicine 12/21/15 Rajani Stewart [address] [facility] [address] [place] [address] Psychiatry 04/25/17 Isiah Barker MD [address] [facility] [place], [place] [address] Physician Radiation Oncology 06/27/21 Demario Martinez, repair service clerkLead Worker Of Housekeeping And Laundry Internal Medicine 09/21/21 Shingle Carrier Relationship Specialty Start Date End Date Alvarez Montanez MD [address] [place], [place] [address] PCP - General Internal Medicine 12/21/15 Rajani Stewart [address] [facility] [address] [place] [address] Psychiatry 04/25/17 Isiah Barker MD [address] [facility] [address], [place] [address] Physician Radiation Oncology 06/27/21 Demario Martinez, repair service clerkLead Worker Of Housekeeping And Laundry Internal Medicine 09/21/21 Shingle Carrier Relationship Specialty Start Date End Date Alvarez Montanez MD [address] [place], [place] [id number] PCP - General Internal Medicine 12/21/15 Rajani Stewart [address] [facility] [address] [place] [address] Psychiatry 04/25/17 Isiah Barker MD [address] [facility] [place], [place] [address] Physician Radiation Oncology 06/27/21 Demario Martinez, repair service clerkLead Worker Of Housekeeping And Laundry Internal Medicine 09/21/21 Shingle Carrier Relationship Specialty Start Date End Date Alvarez Montanez MD [address] [place], [place] [address] PCP - General Internal Medicine 12/21/15 Rajani Stewart [address] [facility] [address] [place] [address] Psychiatry 04/25/17 Isiah Barker MD [address] [place], [place] [address] Physician Radiation Oncology 06/27/21 Demario Martinez RN Lead Worker Of Housekeeping And Laundry Internal Medicine 09/21/21 Shingle Carrier Relationship Specialty Start Date End Date Rajani Stewart [address] [facility] [address] [place] [address] Psychiatry 04/25/17 Isiah Barker MD [address] [place] [address] Physician Radiation Oncology 06/27/21 Demario Martinez, repair service clerkLead Worker Of Housekeeping And Laundry Internal Medicine 09/21/21 Shingle Carrier Relationship Specialty Start Date End Date Imani Geiger MD [address] [place] [address] [place] [address] PCP - General 01/17/22 Team Status: Active [...] BE BASED ON THE PRIMARY CLINICAL RECORDS. [facility]. provides no warranty or guarantee of the accuracy or completeness of information in this document.
[2025-03-08] MEDS: Senna/Docusate Sodium 1 Tablet 2 TABLET PO (22:41)
[2025-03-08] MEDS: APIXABAN 5 MG TABLET PO (22:42)
[2025-03-08 22:59] LABS: CPK Total, Creatine Kinase 143 U/L (24-195); Triglycerides 126 mg/dL
[2025-03-08] MEDS: Chlorhexidine 15 ML PO (23:41)
[2025-03-09] VITALS (42 sets, daily range): BP systolic 83–141; BP diastolic 47–95; PULSE 70–108; RESP 16–26; TEMP 36.6–37.9; O2SAT 93–100; BMI 54.2
[2025-03-09 00:11] LABS: Allen Test Positive; Base Excess 5 mmol/L (-2 to +2); FI02 40.0; PEEP 5; PO2 104 mmHG (75-100); RR 16; SITE L Radial; SO2 98 % (95-99)
--- NOTE | 2025-03-09 00:14 | CON.PCM.CC_ITS ---
HPI Consult Data Date of Consult: 03/09/25 HPI Narrative HPI Narrative: This is a 59y/o F admitted to the ICU for acute hypercapnic respiratory failure/She has history of COPD, Parkinson?s disease, hypoxic brain injury, diastolic dysfunction, STEPHANIE, VTE on Eliquis, seizure disorder. She is on hospice. She was brought to the ED for unresponsive episodes. Initially in the ED she was A&Ox4 but became somnolent. ABG showed severe hypercapnia and she was intubated after failing trial on NIV.? Other labs significant for Cr 1.4. UA with UTI. CT head, c-spine negative for acute pathology. CXR with ETT well positioned. L basilar consolidation. Currently in the ICU she is sedated with fentanyl. RN reports she was able to follow commands on arrival to ICU. Minimal secretions from ETT. [facility] Medical History H/O long-term (current) use of anticoagulants Falls frequently FTT (failure to thrive) in adult Chronic anemia Compression fracture of T6 vertebra Compression fracture of T5 vertebra Cancer CPAP (continuous positive airway pressure) dependence Sleep apnea Coronary artery disease Myocardial infarct DVT (deep venous thrombosis) Seizures DVT (deep vein thrombosis) in Cardiopulmonary arrest with successful resuscitation Wears dentures Wears glasses Back pain TIA (transient ischemic attack) GERD (gastroesophageal reflux disease) BiPAP (biphasic positive airway pressure) dependence Former smoker On home oxygen therapy Cardiology follow-up encounter Hx of echocardiogram Hx of cardiovascular stress test Essential hypertension MSSA (methicillin susceptible Staphylococcus aureus) pneumonia Restrictive lung disease Chronic narcotic dependence Pulmonary embolism Diastolic dysfunction Syncope and collapse STEPHANIE (obstructive sleep apnea) HLD (hyperlipidemia) Anxiety and depression Morbid obesity Bilateral peripheral pulmonary emboli Hypothyroidism COPD (chronic obstructive pulmonary disease) Home Medications ?Medication ?Instructions ?Recorded ?Last Taken ?Type compr.stocking,thigh,reg,x-lrg #24 ea 01/15/24 Unknown Rx miscellaneous medical supply 1 ea miscellaneous DAILY debility 01/16/24 Unknown Rx #1 ea miscellaneous medical supply 1 ea miscellaneous DAILY #1 ea 04/29/24 Unknown Rx miscellaneous medical supply 1 ea miscellaneous DAILY #1 ea 04/29/24 Unknown Rx rosuvastatin 10 mg tablet 10 mg PO DAILY cholesterol 1 month 06/23/24 Unknown Rx #30 tabs albuterol sulfate 90 mcg/actuation 2 puff inhalation Q 6H PRN 06/26/24 Unknown Rx aerosol inhaler shortness of breath or wheez ing #8.5 grams miscellaneous medical supply #1 ea 07/08/24 Unknown Rx ondansetron HCl 4 mg tablet 4 mg PO Q8H PRN nausea and 07/08/24 Unknown Rx vomiting #30 tabs miscellaneous medical supply #1 ea 07/29/24 Unknown Rx naloxone 4 mg/actuation nasal spray 1 spray intranasal Q2M PRN opioid 08/12/24 Unknown History overdose sennosides 8.6 mg-docusate sodium 1 tab-cap PO DAILY 0 08/12/24 Unknown History 50 mg tablet (Senexon-S) acetaminophen 325 mg tablet 650 mg (2 x 325 mg) PO Q4H PRN PRN 08/15/24 Unknown Rx Fever, pain 1-05/01 #0 tabs lorazepam 1 mg tablet 1 mg PO 0100,0700,1300,1900 #0 tabs 08/15/24 Unknown Rx methadone 10 mg tablet 10 mg PO Q8 #0 tabs 08/15/24 Unknown Rx oxycodone 15 mg tablet 15 mg PO Q4H PRN pain 3 days #10 08/15/24 Unknown Rx tabs mupirocin 2 % topical ointment 1 applic topical BID #2 2 grams 08/28/24 Unknown Rx polyethylene glycol 3350 17 4 g PO DAILY stool softene r #119 10/29/24 Unknown Rx gram/dose oral powder (Miralax) grams metoprolol succinate 100 mg 50 mg PO DAILY PRN blood p ressure 11/14/24 Unknown History tablet,extended release 24 hr furosemide 20 mg tablet 30 mg (1.5 x 20 mg) PO DAILY 12/17/24 Unknown Rx diuretic #45 TABLETS venlafaxine 150 mg 150 mg PO DAILY depression # 90 caps 12/29/24 Unknown Rx capsule,extended release 24 hr (Effexor XR) cholecalciferol (vitamin D3) 1,250 1,250 mcg PO QWEEK supplement #8 12/30/24 Unknown Rx mcg (50,000 unit) capsule caps mirtazapine 7.5 mg tablet 7.5 mg PO QHS sleep #30 tabs 01/06/25 Unknown Rx carbidopa 25 mg-levodopa 100 mg 2 tab PO .QID #240 tab s 01/08/25 Unknown Rx tablet lacosamide 200 mg tablet 200 mg PO BID #60 tabs 01/08 Unknown Rx levetiracetam 750 mg tablet 750 mg PO BID seizures #60 tabs 01/08/25 Unknown Rx apixaban 5 mg tablet (Eliquis) 5 mg PO BID blood thinn er #60 tabs 03/02/25 Unknown Rx losartan 100 mg tablet (Cozaar) 100 mg PO DAILY blood pressure #90 03/05/25 Unknown Rx tabs omeprazole 20 mg capsule,delayed 20 mg PO DAILY acid r eflux #30 caps 03/05/25 Unknown Rx release Allergy/AdvReac Type Severity Reaction Status Date / Time aspirin Allergy Hives Verified 03/08/25 15:55 dicyclomine Allergy Itching Verified 03/08/25 15:55 ibuprofen Allergy Hives Verified 03/08/25 15:55 ketorolac tromethamine (From Allergy Angioedema Verified 03/08/25 15:55 Toradol) nut - unspecified Allergy Hives Verified 03/08/25 15:55 Penicillins (PCN) Allergy Hives Verified 03/08/25 15:55 tramadol HCl (From Ultram) Allergy Angioedema Verified 03/08/25 15:55 Family History Brother Myocardial infarction Asthma Mental disorder Psychiatric care Suicide attempt Father Colon cancer Brother Mental disorder Aunt Parkinson disease Sister Breast cancer Cervical cancer Ovarian cancer Sister Cervical cancer Ovarian cancer Mother Cancer leukemia History of blood clots Hypertension Surgical History History of cardiac catheterization History of lumpectomy of left breast History of esophagogastroduodenoscopy (EGD) History of cholecystectomy S/P lumpectomy, left breast History of left breast biopsy History of hysterectomy Hx of appendectomy History of left heart catheterization (LHC) (~04/22/21) Social History household members: family current occupational status: disabled Smoking Status: Former smoker quit date: 01/21/16 pack-years: 32 Electronic Cigarette Use: not used second hand exposure: Yes alcohol intake: never substance use type: does not use do you feel safe at home: No ROS Review of Systems ROS Unobtainable: due to endotracheal tube Objective Data Objective Data Vital Signs: Vital Signs Last response 3 Temperature 37.3 C 03/09/25 00:00 Temperature Source Core 03/09/25 00:00 Pulse Rate 95 03/09/25 00:00 Respiratory Rate 17 03/09/25 00:00 Respiratory Effort Mechanically Ventilated 03/09/25 00:00 Respiratory Depth Normal 03/09/25 00:00 Respiratory Pattern Normal 03/09/25 00:00 Blood Pressure 115/71 03/09/25 00:00 Blood Pressure Mean 85 03/09/25 00:00 Blood Pressure Source Monitor 03/09/25 00:00 Blood Pressure Position Semi-Fowlers 03/09/25 00:00 Blood Pressure Location Right Arm 03/09/25 00:00 Pulse Ox 100 03/09/25 00:00 Oxygen Delivery Method Mechanical Ventilator 03/09/25 00:00 Oxygen Flow Rate (L/min) 3 03/08/25 18:03 Fraction of Inspired Oxygen (FIO2) 40 03/09/25 00:00 I&O: I&O Last 24 Hours 3 03/08/25 03/08/25 03/09/25 11:59 23:59 11:59 Intake Total 1873.54 / 1923.54 50 / 50 Output Total 725 / 725 Balance 1148.54 / 1198.54 50 / 50 I&O: Total Stay 3 03/08/25 15:51 thru 03/09/25 00:00 Intake Total 1923.54 Output Total 725 Balance 1198.54 Current Meds Ordered / Administered: Current meds ordered / Administered 3 Generic Name Dose Route Start Last Admin Trade Name Freq PRN Reason Stop Dose Admin Albuterol Sulfate 2.5 mg 03/08/25 21:42 Albuterol 2.5 Mg/3 Ml Vial.Neb. INHALATION Q2H PRN PRN SOB &/OR WHEEZING Albuterol/Ipratropium 3 ml 03/08/25 22:00 03/08/25 22:15 Ipratropium/Albuterol Sulfate 3 Ml Ampul.Neb INHALATION 3 ml Q4H.RT LOULOU Administration Apixaban 5 mg 03/08/25 22:00 03/08/25 22:42 Apixaban 5 Mg Tablet PO 5 mg BID LOULOU Administration Atorvastatin Calcium 20 mg 03/08/25 22:00 03/08/25 22:41 Atorvastatin Calcium 20 Mg Tablet PO 20 mg QHS LOULOU Administration Carbidopa/Levodopa 2 tablet 03/08/25 22:00 03/08/25 22:41 Carbidopa/Levodopa 25/100 Tablet PO 2 tablet ACHS LOULOU Administration Chlorhexidine Gluconate 15 ml 03/08/25 22:00 03/08/25 23:41 Chlorhexidine 15 Ml PO 15 ml BID LOULOU Administration Fentanyl 100 mls @ 2.5 mls/hr 03/08/25 20:35 03/08/25 23:45 CONT INF 100 mcg/hr UD LOULOU 10 mls/hr Titration Protocol 25 MCG/HR Ceftriaxone Sodium 1 gm in 50 mls @ 100 mls/hr 03/09/25 22:00 Rocephin IV 2200 LOULOU Pantoprazole Sodium 40 mg/ 100 mls @ 300 mls/hr 03/09/25 10:00 Sodium Chloride IV Q24 LOULOU Sodium Chloride 250 mls @ 15 mls/hr 03/08/25 22:05 IV .[id number] PRN Saline Flush Sodium Chloride 250 mls @ 15 mls/hr 03/08/25 22:05 IV .[id number] PRN Additional IVPB Infusion Propofol 1,000 mg in 100 mls @ 8.022 mls/hr 03/08/25 22:15 03/08/25 23:37 Diprivan CONT INF Not Given .Q12H LOULOU Protocol 10 MCG/KG/MIN Lacosamide 200 mg 03/08/25 22:00 03/08/25 22:41 Lacosamide 100 Mg Tablet PO 200 mg BID LOULOU Administration Levetiracetam 750 mg 03/08/25 22:00 03/08/25 22:42 Levetiracetam 750 Mg Tablet PO 750 mg BID LOULOU Administration Lorazepam 0.5 mg 03/09/25 01:00 Lorazepam 0.5 Mg Tablet PO 0100,0700,1300,1900 LOULOU Mirtazapine 7.5 mg 03/08/25 22:00 03/08/25 22:41 Mirtazapine 15 Mg Tablet PO 7.5 mg QHS LOULOU Administration Ondansetron HCl 4 mg 03/08/25 21:42 Ondansetron 4 Mg/2 Ml Vial IV Q8H PRN PRN NAUSEA/VOMITING Senna/Docusate Sodium 2 tablet 03/08/25 22:00 03/08/25 22:41 Senna/Docusate Sodium 1 Tablet PO 2 tablet BID LOULOU Administration Sodium Chloride 10 - 40 ml 03/08/25 22:05 0.9% Saline Lock 10 Ml Syringe IV UD PRN SALINE FLUSH Venlafaxine HCl 150 mg 03/09/25 10:00 Venlafaxine Xr 150 Mg Capsule PO DAILY LOULOU Physical Exam Narrative Gen: Intubated, sedated Eyes: PERRL ENT: Orally intubated, minimal secretions CV: S1S2 Pulm: Synced well on vent 40% fio2 Abd: Soft/nt/nd Extrem: No c/c/e Lab / Micro Data Attestation: I reviewed the patient's lab results. 03/08/25 16:00 03/08/25 16:00 Labs: Laboratory Results - last 24 hr 03/08/25 16:00: WBC 7.8, RBC 3.88 L, Hgb 9.4 L, Hct 32.1 L, MCV 82.7, MCH 24.2 L , MCHC 29.3 L, RDW Std Deviation 43.2, RDW Coeff of Immanuel 14.3, Plt Count 223, MPV 10.6, Immature Gran % (Auto) 0.300, Neut % (Auto) 66.4, Lymph % (Auto) 25.5, [place]row % (Auto) 5.4, Eos % (Auto) 1.9, Baso % (Auto) 0.5, Absolute Neuts (auto) 5.2, Absolute Lymphs (auto) 1.98, Nucleated RBC % 0, PT 13.7, INR 1.0, APTT 31.6, Sodium 135, Potassium 4.7, Chloride 96 L, Carbon Dioxide 30.9, Anion Gap 8, BUN 23 H, Creatinine 1.46 H, Estim Creat Clear Calc 58.38, Est GFR (MDRD) Non-Af 41 L, BUN/Creatinine Ratio 15.7, Glucose 115 H, Lactic Acid < 1.0, Calcium 9.6, Total Bilirubin 0.30, AST 89 H, ALT 13, Alkaline Phosphatase 155 H, Total Creatine Kinase 143, Total Protein 8.0, Albumin 4.1, Globulin 4.0, Albumin/Globulin Ratio 1.0, Triglycerides 126 03/08/25 16:50: Urine Color Yellow, Urine Clarity Sl. Cloudy, Urine pH 5.0, Ur Specific [place] 1.025, Urine Protein 15 H, Urine Glucose (UA) Normal, Urine Ketones Negative, Urine Occult Blood 10 H, Urine Nitrite Negative, Urine Bilirubin Negative, Urine Urobilinogen Normal, Ur Leukocyte Esterase 100 H, Urine RBC 0-5 SEEN, Urine WBC 10-25 SEEN, Ur Squamous Epith Cells 0-5 SEEN, Urine Bacteria 4+, Urine Mucus 0 SEEN Micro: Microbiology 03/08/25 16:07 Mucosa - Nose SARS-CoV-2, Influenza & RSV (PCR) - Final ABG Data ABG results: ABG 03/08/25 03/08/25 03/09/25 18:02 20:00 00:06 Specimen Type ART ART ART Sample Site R Radial L Radial L Radial pH 7.18 L* 7.10 L* 7.35 Bicarbonate Actual 33.5 H 30.9 H 30.8 H Total CO2 36 34 33 Base Excess 5 H 1 5 H O2 Saturation 95 86 L 98 O2 % 4.0 40.0 40.0 ABG pCO2 89.8 H* 98.6 H* 55.8 H ABG pO2 98 72 L 104 H Олег Test Positive Positive Positive Respiration Rate 12 16 O2 Delivery Device Cannula BiPAP Adult Vent Vent Mode Not entered avaps AC Tidal Volume 500.0 400.0 POC PEEP 10 5 Crit Call To/Read Back Yes Yes Blood Gas Notified Whom adrienne Blood Gas Notified Time 20:01:26 Imaging Radiology Impression Brain CT 03/08/25 16:21 IMPRESSION: No acute abnormality Reading Location: [facility] Cervical Spine CT 03/08/25 16:21 IMPRESSION: Negative for fracture Reading [facility] Chest X-Ray 03/08/25 16:28 IMPRESSION: Suboptimal inspiration. No evidence of acute cardiopulmonary disease. Reading Location: [id number] Chest X-Ray 08/17/25 20:38 IMPRESSION: Mild cardiomegaly with diffuse pulmonary vascular congestion. Scattered left lung base opacities. Reading Location: [facility] Chest X-Ray 03/08/25 21:10 IMPRESSION: 1. Endotracheal and enteric tubes in appropriate positions. 2. Left lung base consolidation. 3. Mild cardiomegaly and diffuse pulmonary vascular congestion. Reading Location: [facility] Assessment and Plan . Assessment and plan: ASSESSMENT #Sepsis #Left lower lobe pneumonia #UTI #Acute hypercapnic respiratory failure #Acute metabolic/toxic encephalopathy #LEIGH ANN #H/O Seizure #H/O STEPHANIE #H/O Parkinsons #H/O COPD #H/O VTE PLAN: -IVF resuscitation -Azithromycin/Ceftriaxone -Follow cultures. L.A. <1 -Vent reviewed AC/400/16=40/5 -Follow ABG and CXR -Fentanyl/Propofol for sedation -Follow renal panel and urine output -Check Salicylate and Acetaminophen level -SAT/SBT in AM -Continue home medications PPX: Anticoagulated systemically, protonix Critical Care Time: 60 min The entirety of this encounter was done via Telemedicine
[2025-03-09] MEDS: 0.9% Saline Lock 10 ML Syringe IV ×2 (01:34→19:53)
[2025-03-09] MEDS: CHLORHEXIDINE GLUC 2% CLOTH 1 EACH TOWELETTE TOPICAL (01:34)
--- NOTE | 2025-03-09 01:36 | NURSING ---
In report, Melissa STEWART said she was having trouble getting the fentanyl to prime through the new portless tubing without it alarming air in the cassette. Due to these issues, some fentanyl was wasted. At this time, fentanyl bag is nearly empty but it still shows quite a bit left on the MAR. New bag will be hung shortly.
[2025-03-09] MEDS: fentaNYL drip 100 ML 10 MCG CONT INF ×3 (01:38→22:44)
--- NOTE | 2025-03-09 01:39 | NURSING ---
When scanning fentanyl bag, it says medication does not exist on this patient. Consulted with pharmacist who said he has the same issue when scanning a bag that he has. Ge said it must be the barcodes that aren't scanning and that he sees the order as active as well. New bag verified wAbby Ziegler RN and shyam.
[2025-03-09 02:12] LABS: Acetaminophen (Tylenol) Level < 5.0 ug/mL (8.0-19.0); Ammonia 34.3 umol/L (11-51); Salicylate < 0.5 mg/dL (2.8-20.0)
[2025-03-09 03:53] LABS: Hematocrit 25.4 % (37-47); Hemoglobin 7.4 g/dL (12.0-15.0); Immature Granulocytes Count 0.020 X10^3/uL (0.0-0.0); Mean Corp Hgb Conc 29.1 g/dL (32-36); Mean Corpuscular Volume 83.3 fL (81-99); Mean Platelet Vol. 10.9 fl (6.2-12.0); NRBC Flagged by Analyzer 0 % (0-5); Platelet Count 174 K/mm3 (150-450); RBC Distribution Width CV 14.4 % (11.6-14.6); RBC Distribution Width SD 43.7 fl (35.1-43.9); Red Blood Count 3.05 M/mm3 (4.2-5.4); White Blood Count 7.5 K/mm3 (4.4-11.0)
--- NOTE | 2025-03-09 04:04 | RAD_ITS ---
PROCEDURE: CHEST 1 VIEW (PORTABLE) 03/09/2025 REASON FOR EXAM: INTUBATED TECHNIQUE: Frontal view of the chest. COMPARISON: 03/08/2025 FINDINGS: FINDINGS: Mild pulmonary vascular congestion and question interstitial edema. No pleural effusion or pneumothorax. Perihilar and basal consolidation. Cardiac silhouette is mildly enlarged, stable. Nasogastric tube and ETT is seen in place. RAD/Chest 1 View (Portable) IMPRESSION: Mild pulmonary vascular congestion and question interstitial edema. No focal co nsolidation. Perihilar and basal consolidation. New as compared. Stable mild cardiomegaly. Reading [facility]
[2025-03-09] MEDS: Propofol 10MG/Ml 1,000 MG/100 ML Bottle 8 MG CONT INF (04:15)
[2025-03-09 04:22] LABS: Anion Gap 9 (5-15); BUN 21 mg/dL (4-19); BUN/Creat Ratio 18.0 RATIO (10-20); Calcium,Total 8.8 mg/dL (7.6-11.0); Carbon Dioxide 25.9 mmol/L (21.0-32.0); Chloride 101 mmol/L (98-108); Estimated Creatinine Clearance 68.87 ml/min (50-250); Glucose 122 mg/dL (70-99); Magnesium 2.0 mg/dL (1.5-2.2); Potassium 3.9 mmol/L (3.3-5.1)
[2025-03-09 05:38] LABS: Allen Test Positive; Base Excess 7 mmol/L (-2 to +2); FI02 30.0; PEEP 5; PO2 69 mmHG (75-100); RR 16; SITE L Radial; SO2 93 % (95-99)
[2025-03-09] MEDS: dexMEDEtomidine 400 MCG in 0.9% Normal Saline (100mL Bag) 96 ML 16.7 MCG CONT INF ×3 (06:45→19:37)
[2025-03-09] MEDS: Lactated Ringers 1,000 ML 999 ML IV (06:47)
[2025-03-09] MEDS: Chlorhexidine 15 ML PO ×2 (08:03→19:42)
[2025-03-09] MEDS: APIXABAN 5 MG TABLET PO ×2 (08:04→21:52)
[2025-03-09] MEDS: Senna/Docusate Sodium 1 Tablet 2 TABLET PO ×2 (08:05→21:52)
[2025-03-09] MEDS: 0.9% Normal Saline (1000mL) 1,000 ML 999 ML IV (09:18)
--- NOTE | 2025-03-09 09:52 | PCM.PN.TICU ---
Objective Data Objective Data Vital Signs: Vital Signs Last response Temperature 37.5 C H 03/09/25 08:00 Temperature Source Core 03/09/25 08:00 Pulse Rate 90 03/09/25 08:00 Respiratory Rate 16 03/09/25 08:00 Respiratory Effort Mechanically Ventilated 03/09/25 04:00 Respiratory Depth Normal 03/09/25 04:00 Respiratory Pattern Normal 03/09/25 07:25 Blood Pressure 84/48 L 03/09/25 08:00 Blood Pressure Mean 60 03/09/25 08:00 Blood Pressure Source Monitor 03/09/25 08:00 Blood Pressure Position Semi-Fowlers 03/09/25 08:00 Blood Pressure Location Right Arm 03/09/25 08:00 Pulse Ox 93 03/09/25 08:00 Oxygen Delivery Method Mechanical Ventilator 03/09/25 08:00 Oxygen Flow Rate (L/min) 3 03/08/25 18:03 Fraction of Inspired Oxygen (FIO2) 30 03/09/25 08:00 I&O: I&O Last 24 Hours 03/08/25 03/08/25 03/09/25 11:59 23:59 11:59 Intake Total 1873.54 / 1876.04 1113.38 / 1113.38 Output Total 725 / 725 250 / 250 Balance 1148.54 / 1151.04 863.38 / 863.38 I&O: Total Stay 03/08/25 15:51 thru 03/09/25 08:39 Intake Total 2986.92 Output Total 975 Balance 2011.92 Current Meds Ordered / Administered: Current meds ordered / Administered Generic Name Dose Route Start Last Admin Trade Name Freq PRN Reason Stop Dose Admin Albuterol Sulfate 2.5 mg 03/08/25 21:42 Albuterol 2.5 Mg/3 Ml Vial.Neb. INHALATION Q2H PRN PRN SOB &/OR WHEEZING Albuterol/Ipratropium 3 ml 03/08/25 22:00 03/09/25 02:25 Ipratropium/Albuterol Sulfate 3 Ml Ampul.Neb INHALATION 3 ml Q4H.RT LOULOU Administration Apixaban 5 mg 03/08/25 22:00 03/09/25 08:04 Apixaban 5 Mg Tablet PO 5 mg BID LOULOU Administration Atorvastatin Calcium 20 mg 03/08/25 22:00 03/08/25 22:41 Atorvastatin Calcium 20 Mg Tablet PO 20 mg QHS LOULOU Administration Carbidopa/Levodopa 2 tablet 03/08/25 22:00 03/09/25 06:03 Carbidopa/Levodopa 25/100 Tablet PO 2 tablet ACHS LOULOU Administration Chlorhexidine Gluconate 15 ml 03/08/25 22:00 03/09/25 08:03 Chlorhexidine 15 Ml PO 15 ml BID LOULOU Administration Chlorhexidine Gluconate 1 each 03/09/25 10:00 03/09/25 01:34 Chlorhexidine Gluc 2% Cloth 1 Each [place]lette TOPICAL 1 each DAILY LOULOU Administration Fentanyl 100 mls @ 2.5 mls/hr 03/08/25 20:35 03/09/25 08:00 CONT INF 100 mcg/hr UD LOULOU 10 mls/hr Titration Protocol 25 MCG/HR Ceftriaxone Sodium 1 gm in 50 mls @ 100 mls/hr 03/09/25 22:00 Rocephin IV 2200 LOULOU Pantoprazole Sodium 40 mg/ 100 mls @ 300 mls/hr 03/09/25 10:00 Sodium Chloride IV Q24 LOULOU Sodium Chloride 250 mls @ 15 mls/hr 03/08/25 22:05 IV .[id number] PRN Saline Flush Sodium Chloride 250 mls @ 15 mls/hr 03/08/25 22:05 IV .[id number] PRN Additional IVPB Infusion Dexmedetomidine HCl 400 mcg/ 100 mls @ 16.713 mls/hr 03/09/25 06:45 03/09/25 08:00 Sodium Chloride CONT INF 0.5 mcg/kg/hr .[id number] LOULOU 16.7 mls/hr Titration Protocol 0.5 MCG/KG/HR Sodium Chloride 1,000 mls @ 150 mls/hr 03/09/25 08:50 IV .[id number] LOULOU Lacosamide 200 mg 03/08/25 22:00 03/09/25 08:33 Lacosamide 100 Mg Tablet PO 200 mg BID LOULOU Administration Levetiracetam 750 mg 03/08/25 22:00 03/09/25 08:06 Levetiracetam 750 Mg Tablet PO 750 mg BID LOULOU Administration Lorazepam 0.5 mg 03/09/25 01:00 03/09/25 06:03 Lorazepam 0.5 Mg Tablet PO 0.5 mg 0100,0700,1300,1900 LOULOU Administration Mirtazapine 7.5 mg 03/08/25 22:00 03/08/25 22:41 Mirtazapine 15 Mg Tablet PO 7.5 mg QHS LOULOU Administration Ondansetron HCl 4 mg 03/08/25 21:42 Ondansetron 4 Mg/2 Ml Vial IV Q8H PRN PRN NAUSEA/VOMITING Senna/Docusate Sodium 2 tablet 03/08/25 22:00 03/09/25 08:05 Senna/Docusate Sodium 1 Tablet PO 2 tablet BID LOULOU Administration Sodium Chloride 10 - 40 ml 03/08/25 22:05 03/09/25 01:34 0.9% Saline Lock 10 Ml Syringe IV 20 ml UD PRN Administration SALINE FLUSH Venlafaxine HCl 150 mg 03/09/25 10:00 03/09/25 08:05 Venlafaxine Xr 150 Mg Capsule PO 150 mg DAILY LOULOU Administration Lab / Micro Data 03/09/25 03:29 03/09/25 03:29 Labs: Laboratory Results - last 24 hr 03/08/25 16:00: WBC 7.8, RBC 3.88 L, Hgb 9.4 L, Hct 32.1 L, MCV 82.7, MCH 24.2 L, MCHC 29.3 L, RDW Std Deviation 43.2, RDW Coeff of Immanuel 14.3, Plt Count 223, MPV 10.6, Immature Gran % (Auto) 0.300, Neut % (Auto) 66.4, Lymph % (Auto) 25.5, [place] % (Auto) 5.4, Eos % (Auto) 1.9, Baso % (Auto) 0.5, Absolute Neuts (auto) 5.2, Absolute Lymphs (auto) 1.98, Nucleated RBC % 0, PT 13.7, INR 1.0, APTT 31.6, Sodium 135, Potassium 4.7, Chloride 96 L, Carbon Dioxide 30.9, Anion Gap 8, BUN 23 H, Creatinine 1.46 H, Estim Creat Clear Calc 58.38, Est GFR (MDRD) Non-Af 41 L, BUN/Creatinine Ratio 15.7, Glucose 115 H, Lactic Acid < 1.0, Calcium 9.6, Total Bilirubin 0.30, AST 89 H, ALT 13, Alkaline Phosphatase 155 H, Total Creatine Kinase 143, Total Protein 8.0, Albumin 4.1, Globulin 4.0, Albumin/Globulin Ratio 1.0, Triglycerides 126 03/08/25 16:50: Urine Color Yellow, Urine Clarity Sl. Cloudy, Urine pH 5.0, Ur Specific [place] 1.025, Urine Protein 15 H, Urine Glucose (UA) Normal, Urine Ketones Negative, Urine Occult Blood 10 H, Urine Nitrite Negative, Urine Bilirubin Negative, Urine Urobilinogen Normal, Ur Leukocyte Esterase 100 H, Urine RBC 0-5 SEEN, Urine WBC 10-25 SEEN, Ur Squamous Epith Cells 0-5 SEEN, Urine Bacteria 4+, Urine Mucus 0 SEEN 03/09/25 01:33: Ammonia 34.3, Salicylates < 0.5 L, Acetaminophen < 5.0 L 03/09/25 03:29: WBC 7.5, RBC 3.05 L, Hgb 7.4 L, Hct 25.4 L, MCV 83.3, MCH 24.3 L, MCHC 29.1 L, RDW Std Deviation 43.7, RDW Coeff of Immanuel 14.4, Plt Count 174, MPV 10.9, Immature Gran % (Auto) 0.300, Neut % (Auto) 64.4, Lymph % (Auto) 27.0, [place] % (Auto) 6.8, Eos % (Auto) 1.2, Baso % (Auto) 0.3, Absolute Neuts (auto) 4.8, Absolute Lymphs (auto) 2.02, Nucleated RBC % 0, Sodium 136, Potassium 3.9, Chloride 101, Carbon Dioxide 25.9, Anion Gap 9, BUN 21 H, Creatinine 1.16, Estim Creat Clear Calc 68.87, Est GFR (MDRD) Non-Af 54 L, BUN/Creatinine Ratio 18.0, Glucose 122 H, Calcium 8.8, Magnesium 2.0 Micro: Microbiology 03/08/25 22:15 Mucosa - Nasopharyngeal Respiratory Panel (PCR) - Final 03/08/25 16:50 Urine, Clean Catch Urine Culture - Preliminary Presumptive E. coli 03/08/25 16:07 Mucosa - Nose SARS-CoV-2, Influenza & RSV (PCR) - Final ABG Data ABG results: ABG 03/08/25 03/08/2525 18:02 20:00 00:06 Specimen Type ART ART ART Sample Site R Radial L Radial L Radial pH 7.18 L* 7.10 L* 7.35 Bicarbonate Actual 33.5 H 30.9 H 30.8 H Total CO2 36 34 33 Base Excess 5 H 1 5 H O2 Saturation 95 86 L 98 O2 % 4.0 40.0 40.0 ABG pCO2 89.8 H* 98.6 H* 55.8 H ABG pO2 98 72 L 104 H Олег Test Positive Positive Positive Respiration Rate 12 16 O2 Delivery Device Cannula BiPAP Adult Vent Vent Mode Not entered avaps AC Tidal Volume 500.0 400.0 POC PEEP 10 5 Crit Call To/Read Back Yes Yes Blood Gas Notified Whom adrienne Blood Gas Notified Time 20:01:26 03/09/25 05:33 Specimen Type ART Sample Site L Radial pH 7.42 Bicarbonate Actual 31.9 H Total CO2 33 Base Excess 7 H O2 Saturation 93 L O2 % 30.0 ABG pCO2 49.6 H ABG pO2 69 L Олег Test Positive Respiration Rate 16 O2 Delivery Device Adult Vent Vent Mode AC Tidal Volume 400.0 POC PEEP 5 Crit Call To/Read Back Blood Gas Notified Whom Blood Gas Notified Time Imaging Radiology Impression Brain CT 03/08/25 16:21 IMPRESSION: No acute abnormality Reading Location: [facility] Cervical Spine CT 03/08/25 16:21 IMPRESSION: Negative for fracture Reading Location: [facility] Chest X-Ray 03/08/25 16:28 IMPRESSION: Suboptimal inspiration. No evidence of acute cardiopulmonary disease. Reading Location: [id number] Chest X-Ray 03/08/25 20:38 IMPRESSION: Mild cardiomegaly with diffuse pulmonary vascular congestion. Scattered left lung base opacities. [facility] Chest X-Ray 03/08/25 21:10 IMPRESSION: 1. Endotracheal and enteric tubes in appropriate positions. 2. Left lung base consolidation. 3. Mild cardiomegaly and diffuse pulmonary vascular congestion. Reading Location: [facility] Chest X-Ray 03/09/25 04:04 IMPRESSION: Mild pulmonary vascular congestion and question interstitial edema. No focal consolidation. Perihilar and basal consolidation. New as compared. Stable mild cardiomegaly. Reading Location: [place] [address] Assessment and Plan . Assessment and plan: 59-year-old female history of sleep apnea, thoracic compression fractures, COPD and CHF on 3 L home O2, anxiety, chronic pain, Parkinson's, seizure disorder, GERD, hypertension, PE who presented to [facility] ED 03/08/2025 due to episode of decreased consciousness as well as headache. Subjective: Pt seen and examined. Intubated, sedated. Hypotensive overnight and transitioned off propofol to Precedex. She received additional LR bolus. BP remains soft and additional NS bolus this AM. Fent @ 100 Precedex @ 0.5 16 400 5 30 Objective: PE: General: Well developed, obese ac/ch ill appearing female; + MV HEENT: anicteric Sclera; + ETT, nl nose; supple neck, no masses Cardiovascular: Regular Rate and Rhythm; No murmurs, rubs, gallops; no displaced PMI; trace BLE edema Respiratory: faint crackles, no wheezes or rhonchi Abdominal: Non-tender; Non distended; hypoBS x 4; No Hepatosplenomegaly Extremities: Warm, well perfused; No clubbing, cyanosis; capillary refill < 2 sec Neurological: sedated A/P #Sepsis #Left lower lobe pneumonia #UTI #Acute on chronic hypoxemic hypercapnic respiratory failure #Acute metabolic/toxic encephalopathy #LEIGH ANN #H/O Seizure #H/O STEPHANIE #H/O Parkinsons #H/O COPD #H/O VTE PLAN: -Cont MV; settings reviewed/adjusted; cont sedation/analgesia; SAT/SBTs per protocol -Sp IVF resuscitation, BPs remains soft, CXR looks more congested, would not do cont IVF at this time unless worsening UOP; start NEpi if needed to keep MAP > 65; get TTE -Azithromycin/Ceftriaxone; F/U Cx -Follow renal panel and urine output -Check Salicylate and Acetaminophen level --> WNL -Continue home medications NPO Eliquis, PPI Guarded prognosis Critical Care Time: 50 min The entirety of this encounter was done via Telemedicine
--- NOTE | 2025-03-09 10:09 | ECHOCS_ITS ---
Reason For Study Reason For Study: CONGESTIVE HEART FAILURE Procedure This was a 2D Doppler, Color Flow transthoracic echocardiogram. The patient was scanned supine. The study was technically difficult. Contrast injection was performed. Patient was on ventillator during exam. Exam performed portable in ICU/CCU. Left Ventricle Normal size and thickness. Left ventricular systolic function is normal. The estimated ejection fraction is 50 %. No regional wall motion abnormalities noted. Right Ventricle Mildly dilated right ventricle. Mildly increased RV wall thickness. Mild global right ventricular systolic dysfunction. Atria Normal left atrium. The right atrium is mildly enlarged. Mitral Valve Normal mitral valve. Mild (1+) mitral valve insufficiency. Tricuspid Valve Normal tricuspid valve. Mild tricuspid valve insufficiency. Aortic Valve Normal aortic valve. There is no aortic valvular vegetation. There is no aortic stenosis. No aortic valve insufficiency. Great Vessels No collapse of the inferior vena cava. Medication Diluted definity 2ml given slow IV push to enhance endocardial definition. MMode/2D Measurements & Calculations LVIDd: 4.8 cm IVSd: 1.2 cm LVOT diam: 2.3 cm LVIDs: 3.0 cm LVPWd: 1.2 cm LVOT area: 4.2 cm2 RVDd: 4.3 cm FS: 38.1 % asc Aorta Diam: 3.6 cm LAV(MOD-bp): 55.0 ml LVAd ap4: 31.7 cm2 LAV(MOD-bp) Indexed: 24.5 ml/m2 LVLd ap4: 8.5 cm LAV(MOD-sp2): 41.2 ml EDV(MOD-sp4): 97.6 ml LAV(MOD-sp4): 67.8 ml EDV(sp4-el): 101.2 ml LVAs ap4: 19.8 cm2 LVLs ap4: 7.3 cm ESV(MOD-sp4): 45.9 ml ESV(sp4-el): 45.5 ml EF(MOD-sp4): 53.0 % EF(sp4-el): 55.0 % SV(MOD-sp4): 51.7 ml SV(MOD-sp2): 35.1 ml LVAd ap2: 27.7 cm2 LVLd ap2: 8.0 cm SI(MOD-sp4): 23.0 ml/m2 SI(MOD-sp2): 15.6 ml/m2 EDV(MOD-sp2): 78.4 ml EDV(sp2-el): 81.6 ml LVAs ap2: 19.3 cm2 LVLs ap2: 7.3 cm ESV(MOD-sp2): 43.3 ml ESV(sp2-el): 43.4 ml EF(MOD-sp2): 44.7 % SV(sp4-el): 55.7 ml Ao sinus diam: 3.[address] Junction: 3.1 cm LA A4 area: 23.2 cm2 LA dimension(2D): 3.3 cm RA A4 area: 16.3 cm2 TAPSE: 1.7 cm Time Measurements MV dec time: 0.19 sec Doppler Measurements & Calculations MV E max rick: 69.8 cm/sec Lat Peak E' Rick: 9.5 cm/sec Med Peak E' Rick: 7.9 cm/sec MV A max rick: 66.2 cm/sec E/E' lat: 7.3 E/E' med: 8.8 MV E/A: 1.1 Ao V2 max: 147.6 cm/sec LV V1 max: 105.7 cm/sec MV dec slope: 372.1 cm/sec2 Ao max P.7 mmHg LV V1 max P.5 mmHg Ao V2 mean: 108.5 cm/sec LV V1 mean P.3 mmHg Ao mean P.1 mmHg LV V1 mean: 69.9 cm/sec Ao V2 VTI: 26.6 cm LV V1 VTI: 18.6 cm AV (velocity ratio): 0.70 MATTHEW(I,D): 2.9 cm2 MATTHEW(V,D): 3.0 cm2 SV(LVOT): 77.4 ml PA V2 max: 97.3 cm/sec TR max rick: 228.6 cm/sec TR max P.9 mmHg ECHO/Echo Complete W/ Contrast Interpretation Summary The estimated ejection fraction is 50 %. The right atrium is mildly enlarged. Mildly increased RV wall thickness Mild global right ventricular systolic dysfunction. Left ventricular systolic function is normal. No regional wall motion abnormalities noted. Ordering Physician: Miguel Ángel Martinez Performed By: Eloisa Dixon RDCS
[2025-03-09] MEDS: Pantoprazole Sodium 40 MG in 0.9% Normal Saline (100mL MB+) 100 ML 300 MG IV (10:20)
[2025-03-09] MEDS: 0.9% Normal Saline (250mL Bag) 250 ML 15 ML IV (10:20)
--- NOTE | 2025-03-09 12:30 | CASEMGMT ---
PAT ALBA Assessment Face to Face with patient for initial transition planning/care coordination assessment. Pt is current intubated and sedated. Pt's Sister, Yoli (Marisol), at bedside and willing to assist. Care providers, pharmacy, and demographics verified. Admitting dx: RF, UTI LACE Strata: 3 PCP: Ysabel Ruffin Specialists: Gloria (Neuro) Preferred Pharmacy: [facility] Insurance: [employer] Prescription Benefit: Yes LNOK: Yoli Quiroga (Sister and primary caregiver), Mike Bradshaw (Brother), Estelle (Daughter), Nguyễn (Nephew). Yoli reports that the pt's other sister, Deanne, recently . Living Arrangements: Pt lives with her sister (Yoli), brother, and nephew in a 2 story home with a FFSU and a ramp to enter ADLs/IADLs: Pt requires assistance at home. Yoli is the primary caregiver and states that she is the pt's home appliance installer (through [employer]). Yoli states that she helps bathe the pt, cooks meals, cleans, and does laundry. Transportation: Yoli DME: Home oxygen through [employer]. Verified 2L continuous with bleed in to CPAP @ HS. Marisol states that the pt has a concentrator, POC, portable tanks, and a pulse ox. Marisol also reports that the pt has a Rollator, FWW, cane, WC, BSC, extended tub bench, and grab bars. HHC/SNF/ Palliative: [facility] history. History at [facility]. Yoli reports that the pt is active with [facility]'s Palliative care. EMail sent to [facility] notifying of admission. [facility] confirms pt is active with their Palliative Care services. Pt?s goal: TBD Plan: TBD. At this time, it is too early to determine what the pt will need or want at the time of DC. Marisol denies further questions or concerns at this time. ANJALI and SW to follow for DC planning. Radha Arceo RN, CM
--- NOTE | 2025-03-09 14:06 | PCM.PROGNOTE ---
Subjective Subjective Patient seen and examined. She remains intubated and sedated. RASS score is 0 she is able to open her eyes in response to voice. She did have a fever today at 99.3 Fahrenheit. Her blood pressure was running low this morning in the 80s systolic so PICC line was ordered just in case she needed vasopressors and she has been hydrated with IV rate unable to do review of systems as she is intubated and sedated. Objective Data Objective Data Vital Signs: Vital Signs Temp Pulse Resp BP Pulse Ox O2 Del Method O2 Flow Rate 99.3 F H 73 16 107/73 97 Mechanical Ventilator 3 03/09/25 14:00 03/09/25 14:00 03/09/25 14:00 03/09/25 14:00 03/09/25 14:00 03/09/25 14:00 03/08/25 18:03 FiO2 30 03/09/25 14:00 Oxygen Flow Rate (L/min) 3 Oxygen Delivery Method Mechanical Ventilator Weight: 294 lb 12.128 oz Body Mass Index (BMI) 54.2 Intake & Output: Intake and Output for Last 24 Hours 03/07/25 03/08/25 03/09/25 23:59 23:59 23:59 Intake Total 1873.54 / 1876.04 2321.07 / 2321.07 Output Total 725 / 725 400 / 400 Balance 1148.54 / 1151.04 1921.07 / 1921.07 Lab / Micro Data 03/09/25 03:29 03/09/25 03:29 Labs: Laboratory Results - last 24 hr 03/08/25 16:00: WBC 7.8, RBC 3.88 L, Hgb 9.4 L, Hct 32.1 L, MCV 82.7, MCH 24.2 L, MCHC 29.3 L, RDW Std Deviation 43.2, RDW Coeff of Immanuel 14.3, Plt Count 223, MPV 10.6, Immature Gran % (Auto) 0.300, Neut % (Auto) 66.4, Lymph % (Auto) 25.5, [place] % (Auto) 5.4, Eos % (Auto) 1.9, Baso % (Auto) 0.5, Absolute Neuts (auto) 5.2, Absolute Lymphs (auto) 1.98, Nucleated RBC % 0, PT 13.7, INR 1.0, APTT 31.6, Sodium 135, Potassium 4.7, Chloride 96 L, Carbon Dioxide 30.9, Anion Gap 8, BUN 23 H, Creatinine 1.46 H, Estim Creat Clear Calc 58.38, Est GFR (MDRD) Non-Af 41 L, BUN/Creatinine Ratio 15.7, Glucose 115 H, Lactic Acid < 1.0, Calcium 9.6, Total Bilirubin 0.30, AST 89 H, ALT 13, Alkaline Phosphatase 155 H, Total Creatine Kinase 143, Total Protein 8.0, Albumin 4.1, Globulin 4.0, Albumin/Globulin Ratio 1.0, Triglycerides 126 03/08/25 16:50: Urine Color Yellow, Urine Clarity Sl. Cloudy, Urine pH 5.0, Ur Specific [place] 1.025, Urine Protein 15 H, Urine Glucose (UA) Normal, Urine Ketones Negative, Urine Occult Blood 10 H, Urine Nitrite Negative, Urine Bilirubin Negative, Urine Urobilinogen Normal, Ur Leukocyte Esterase 100 H, Urine RBC 0-5 SEEN, Urine WBC 10-25 SEEN, Ur Squamous Epith Cells 0-5 SEEN, Urine Bacteria 4+, Urine Mucus 0 SEEN 03/09/25 01:33: Ammonia 34.3, Salicylates < 0.5 L, Acetaminophen < 5.0 L 03/09/25 03:29: WBC 7.5, RBC 3.05 L, Hgb 7.4 L, Hct 25.4 L, MCV 83.3, MCH 24.3 L, MCHC 29.1 L, RDW Std Deviation 43.7, RDW Coeff of Immanuel 14.4, Plt Count 174, MPV 10.9, Immature Gran % (Auto) 0.300, Neut % (Auto) 64.4, Lymph % (Auto) 27.0, [place] % (Auto) 6.8, Eos % (Auto) 1.2, Baso % (Auto) 0.3, Absolute Neuts (auto) 4.8, Absolute Lymphs (auto) 2.02, Nucleated RBC % 0, Sodium 136, Potassium 3.9, Chloride 101, Carbon Dioxide 25.9, Anion Gap 9, BUN 21 H, Creatinine 1.16, Estim Creat Clear Calc 68.87, Est GFR (MDRD) Non-Af 54 L, BUN/Creatinine Ratio 18.0, Glucose 122 H, Calcium 8.8, Magnesium 2.0 03/09/25 12:42: POC Glucose 118 H Micro: Microbiology 03/08/25 22:15 Sputum, Induced/Lukens Gram Stain - Final 03/08/25 22:15 Mucosa - Nasopharyngeal Respiratory Panel (PCR) - Final 03/08/25 16:50 Urine, Clean Catch Urine Culture - Preliminary Presumptive E. coli 03/08/25 16:07 Mucosa - Nose SARS-CoV-2, Influenza & RSV (PCR) - Final ABG Data ABG results: ABG 03/08/25 03/08/25 03/09/25 18:02 20:00 00:06 Specimen Type ART ART ART Sample Site R Radial L Radial L Radial pH 7.18 L* 7.10 L* 7.35 Bicarbonate Actual 33.5 H 30.9 H 30.8 H Total CO2 36 34 33 Base Excess 5 H 1 5 H O2 Saturation 95 86 L 98 O2 % 4.0 40.0 40.0 ABG pCO2 89.8 H* 98.6 H* 55.8 H ABG pO2 98 72 L 104 H Олег Test Positive Positive Positive Respiration Rate 12 16 O2 Delivery Device Cannula BiPAP Adult Vent Vent Mode Not entered avaps AC Tidal Volume 500.0 400.0 POC PEEP 10 5 Crit Call To/Read Back Yes Yes Blood Gas Notified Whom adrienne Blood Gas Notified Time 20:01:26 03/09/25 05:33 Specimen Type ART Sample Site L Radial pH 7.42 Bicarbonate Actual 31.9 H Total CO2 33 Base Excess 7 H O2 Saturation 93 L O2 % 30.0 ABG pCO2 49.6 H ABG pO2 69 L Олег Test Positive Respiration Rate 16 O2 Delivery Device Adult Vent Vent Mode AC Tidal Volume 400.0 POC PEEP 5 Crit Call To/Read Back Blood Gas Notified Whom Blood Gas Notified Time Radiography Diagnostic Testing: Radiology Impression Brain CT 03/08/25 16:21 IMPRESSION: No acute abnormality Reading [facility] Cervical Spine CT 03/08/25 16:21 IMPRESSION: Negative for fracture Reading [facility] Chest X-Ray 03/08/25 16:28 IMPRESSION: Suboptimal inspiration. No evidence of acute cardiopulmonary disease. Reading Location: [facility] Chest X-Ray 03/08/25 20:38 IMPRESSION: Mild cardiomegaly with diffuse pulmonary vascular congestion. Scattered left lung base opacities. Reading Location: [facility] Chest X-Ray 03/08/25 21:10 IMPRESSION: 1. Endotracheal and enteric tubes in appropriate positions. 2. Left lung base consolidation. 3. Mild cardiomegaly and diffuse pulmonary vascular congestion. Reading Location: [facility] Chest X-Ray 03/09/25 04:04 IMPRESSION: Mild pulmonary vascular congestion and question interstitial edema. No focal consolidation. Perihilar and basal consolidation. New as compared. Stable mild cardiomegaly. Reading Location: [place] [address] Echocardiogram 03/09/25 10:09 Interpretation Summary The estimated ejection fraction is 50 %. The right atrium is mildly enlarged. Mildly increased RV wall thickness Mild global right ventricular systolic dysfunction. Left ventricular systolic function is normal. No regional wall motion abnormalities noted. Ordering Physician: Miguel Ángel Martinez Performed By: Eloisa Dixon RDCS Physical Exam Const Constitutional Narrative: intubated, sedated RASS score is 0 HEENT normocephalic and head/scalp atraumatic Mouth: dry mucous membranes Eyes PERRL Neck supple Lymph Lymphatic: no lymphedema noted Resp Resp Narrative: intubated, sedated, RASS score is 0. Eyes open in response to voice. Cardio regular rate, regular rhythm, S1 normal heart sound, S2 normal heart sound and no murmurs GI normal to inspection, nondistended, normoactive bowel sounds, soft to palpation and non-tender Extremity normal capillary refill, no clubbing, cyanosis or edema and no calf tenderness General Extremity: no tenderness to palpation of joints or extremities Skin General Skin Exam: no breakdown Neuro Neuro Narrative: intubated, sedated, RASS score is 0 Motor Exam: general weakness Assessment & Plan Assessment/Plan (1) Acute hypercapnic respiratory failure: (2) UTI (urinary tract infection): PLAN: Plan #Acute on chronic hypoxic and hypercapnic respiratory failure Patient was admitted with a complaint of altered mental status and shortness of breath. ABG done showed hypercapnic respiratory acidosis. She was unable to tolerate BiPAP so was intubated. She is on lorazepam and methadone as well as oxycodone at home. She also did not wear her BiPAP the night before admission so this together with her medications made her more lethargic. She remains intubated and sedated. RASS score is 0. Critical care on board. 2D echo today showed EF of 50% with no regional wall motion abnormalities noted and mild global right ventricular systolic dysfunction Critical care on board. Titrate oxygen to maintain saturation above 90%. Pending discharge bronchodilators. Chest x-ray on admission did show mild cardiomegaly with diffuse pulmonary vascular congestion as well as left lung base consolidation. #Acute metabolic encephalopathy due to acute on chronic hypoxic and hypercapnic respiratory failure and UTI Management as above. on IV ceftriaxone for UTI #UTI: Urinalysis showed 4+ bacteria. Urine cultures ordered. Currently on IV ceftriaxone. Will follow urine cultures. #HYpotension BP running in the 80s systolic. being hydrated with IVF. If BP remains low and does not respond to fluids, will initiate vasopressors. PICC line ordered. #LEIGH ANN: Cr was 1.46 on admission. #History of seizure disorder: On lacosamide and Keppra #Parkinson's disease: On Sinemet. follows Dr Castro and per office note on 01/08/2025. He had been on Sinemet for myoclonus. 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 Complicates acute care, expected recovery and prognosis #DVT Prophylaxis: Already on Eliquis Charges/Coding Visit Charges Inpatient E&M: 79840 Subs Hosp L3
--- NOTE | 2025-03-09 17:28 | CPS ---
Attempted to do a CPAP trial, patient was apneic and needed much coaching in order to breath the appropriate times a minute, patient put back on full support.
[2025-03-10] VITALS (35 sets, daily range): BP systolic 93–154; BP diastolic 55–113; PULSE 69–106; RESP 12–35; TEMP 36.3–38.1; O2SAT 94–100; BMI 54.3
[2025-03-10] MEDS: dexMEDEtomidine 400 MCG in 0.9% Normal Saline (100mL Bag) 96 ML 16.7 MCG CONT INF (01:13)
[2025-03-10] MEDS: CHLORHEXIDINE GLUC 2% CLOTH 1 EACH TOWELETTE TOPICAL (02:17)
--- NOTE | 2025-03-10 04:08 | RAD_ITS ---
PROCEDURE: CHEST 1 VIEW (PORTABLE) 03/10/2025 REASON FOR EXAM: RESP FAILURE VENT TECHNIQUE: Frontal view of the chest. COMPARISON: 03/09/2025 FINDINGS: Nasogastric tube is seen extending into the stomach body in satisfactory placement. Endotracheal tube is seen 4 cm away from the basilio. Right PICC line is seen ending in mid SVC. No pneumothorax. Stable cardiomegaly and pulmonary venous congestion changes. Underlying basilar infiltrates can not be excluded. Stable blunted costophrenic recesses. Stable osseous structures RAD/Chest 1 View (Portable) IMPRESSION: Tubes and lines as detailed. Stable pulmonary findings Reading Location: [facility]
[2025-03-10 04:39] LABS: Hematocrit 24.2 % (37-47); Hemoglobin 7.3 g/dL (12.0-15.0); Immature Granulocytes Count 0.020 X10^3/uL (0.0-0.0); Mean Corp Hgb Conc 30.2 g/dL (32-36); Mean Corpuscular Volume 79.9 fL (81-99); Mean Platelet Vol. 10.0 fl (6.2-12.0); NRBC Flagged by Analyzer 0 % (0-5); Platelet Count 151 K/mm3 (150-450); RBC Distribution Width CV 14.7 % (11.6-14.6); RBC Distribution Width SD 42.5 fl (35.1-43.9); Red Blood Count 3.03 M/mm3 (4.2-5.4); White Blood Count 5.5 K/mm3 (4.4-11.0)
[2025-03-10 04:59] LABS: Anion Gap 13 (5-15); BUN 16 mg/dL (4-19); BUN/Creat Ratio 20.8 RATIO (10-20); Calcium,Total 8.7 mg/dL (7.6-11.0); Carbon Dioxide 22.5 mmol/L (21.0-32.0); Chloride 103 mmol/L (98-108); Estimated Creatinine Clearance 102.96 ml/min (50-250); Glucose 137 mg/dL (70-99); Potassium 4.1 mmol/L (3.3-5.1)
[2025-03-10 05:21] LABS: Base Excess 3 mmol/L (-2 to +2); FI02 30.0; PEEP 5; PO2 77 mmHG (75-100); RR 16; SITE R Radial; SO2 96 % (95-99)
[2025-03-10] MEDS: 0.9% Saline Lock 10 ML Syringe IV ×2 (06:36→21:11)
[2025-03-10] MEDS: dexMEDEtomidine 400 MCG in 0.9% Normal Saline (100mL Bag) 96 ML 16.9 MCG CONT INF (07:20)
[2025-03-10] MEDS: fentaNYL drip 100 ML 10 MCG CONT INF (07:51)
--- NOTE | 2025-03-10 08:55 | PN_ITS ---
Subjective Subjective Patient seen and examined. She remains intubated and sedated. She failed her spontaneous breathing trial yesterday. She remains intubated and sedated. Objective Data Objective Data Vital Signs: Vital Signs Temp Pulse Resp BP Pulse Ox O2 Del Method O2 Flow Rate 97.4 F L 79 16 113/67 95 Mechanical Ventilator 3 03/10/25 08:00 03/10/25 08:00 03/10/25 08:00 03/10/25 08:00 03/10/25 08:00 03/10/25 08:00 03/08/25 18:03 FiO2 30 03/10/25 08:00 Oxygen Flow Rate (L/min) 3 Oxygen Delivery Method Mechanical Ventilator Weight: 297 lb 2.93 oz Body Mass Index (BMI) 54.3 Intake & Output: Intake and Output for Last 24 Hours 03/08/25 03/09/25 03/10/25 23:59 23:59 23:59 Intake Total 1873.54 / 1876.04 2873.41 / 2900.11 303.29 / 303.29 Output Total 725 / 725 1100 / 1100 250 / 250 Balance 1148.54 / 1151.04 1773.41 / 1800.11 53.29 / 53.29 Lab / Micro Data 03/10/25 04:20 03/10/25 04:20 Labs: Laboratory Results - last 24 hr 03/09/25 12:42: POC Glucose 118 H 03/09/25 17:56: POC Glucose 110 H 03/10/25 00:24: POC Glucose 140 H 03/10/25 04:20: WBC 5.5, RBC 3.03 L, Hgb 7.3 L, Hct 24.2 L, MCV 79.9 L, MCH 24.1 L, MCHC 30.2 L, RDW Std Deviation 42.5, RDW Coeff of Immanuel 14.7 H, Plt Count 151, MPV 10.0, Immature Gran % (Auto) 0.400, Neut % (Auto) 56.0, Lymph % (Auto) 32.3, [place] % (Auto) 8.2, Eos % (Auto) 2.7, Baso % (Auto) 0.4, Absolute Neuts (auto) 3.1, Absolute Lymphs (auto) 1.77, Nucleated RBC % 0, Sodium 138, Potassium 4.1, Chloride 103, Carbon Dioxide 22.5, Anion Gap 13, BUN 16, Creatinine 0.78, Estim Creat Clear Calc 102.96, Est GFR (MDRD) Non-Af 88, BUN/Creatinine Ratio 20.8 H, Glucose 137 H, Calcium 8.7 03/10/25 06:42: POC Glucose 127 H Micro: Microbiology 03/08/25 22:15 Sputum, Induced/Lukens Gram Stain - Final 03/08/25 22:15 Sputum, Induced/Lukens Respiratory Culture - Preliminary Beta streptococcus 03/08/25 16:50 Urine, Clean Catch Urine Culture - Final Presumptive E. coli 03/08/25 22:15 Mucosa - Nasopharyngeal Respiratory Panel (PCR) - Final 03/08/25 16:07 Mucosa - Nose SARS-CoV-2, Influenza & RSV (PCR) - Final ABG Data ABG results: ABG 03/10/25 05:17 Specimen Type ART Sample Site R Radial pH 7.44 Bicarbonate Actual 27.4 H Total CO2 29 Base Excess 3 H O2 Saturation 96 O2 % 30.0 ABG pCO2 40.4 ABG pO2 77 Respiration Rate 16 O2 Delivery Device Adult Vent Vent Mode AC Tidal Volume 400.0 POC PEEP 5 Radiography Diagnostic Testing: Radiology Impression Echocardiogram 03/09/25 10:09 Interpretation Summary The estimated ejection fraction is 50 %. The right atrium is mildly enlarged. Mildly increased RV wall thickness Mild global right ventricular systolic dysfunction. Left ventricular systolic function is normal. No regional wall motion abnormalities noted. Ordering Physician: Miguel Ángel Martinez Performed By: Eloisa Dixon RDCS Chest X-Ray 03/10/25 04:08 IMPRESSION: Tubes and lines as detailed. Stable pulmonary findings Reading Location: [place] [address] Physical Exam Const Constitutional Narrative: intubated, sedated RASS score is 0 HEENT normocephalic and head/scalp atraumatic Eyes PERRL Neck supple Lymph Lymphatic: no lymphedema noted Resp Resp Narrative: intubated, sedated, RASS score is 0. Eyes open in response to voice. Cardio regular rate, regular rhythm, S1 normal heart sound, S2 normal heart sound and no murmurs GI normal to inspection, nondistended, normoactive bowel sounds, soft to palpation and non-tender Extremity normal capillary refill, no clubbing, cyanosis or edema and no calf tenderness General Extremity: no tenderness to palpation of joints or extremities Skin General Skin Exam: no breakdown Neuro Neuro Narrative: intubated, sedated, RASS score is 0; able to nod and shake her head in response to questions. Motor Exam: general weakness Assessment & Plan Assessment/Plan (1) Acute hypercapnic respiratory failure: (2) UTI (urinary tract infection): PLAN: Plan #Acute on chronic hypoxic and hypercapnic respiratory failure * Patient was admitted with a complaint of altered mental status and shortness of breath. ABG done showed hypercapnic respiratory acidosis. She was unable to tolerate BiPAP so was intubated. * She is on lorazepam and methadone as well as oxycodone at home. She also did not wear her BiPAP the night before admission so this together with her medications made her more lethargic. * She remains intubated and sedated. RASS score is 0. * Critical care on board. 2D echo today showed EF of 50% with no regional wall motion abnormalities noted and mild global right ventricular systolic dysfunction * Critical care on board. Titrate oxygen to maintain saturation above 90%. Pending discharge bronchodilators. * Chest x-ray on admission did show mild cardiomegaly with diffuse pulmonary vascular congestion as well as left lung base consolidation. * failed spontaneous breathing trial yesterday. To try spontaneous breathing trial again today * sputum cultures growing Beta streptococcus (rare growth) * #Acute metabolic encephalopathy due to acute on chronic hypoxic and hypercapnic respiratory failure and UTI * Management as above. * on IV ceftriaxone for UTI #UTI: Urinalysis showed 4+ bacteria. urine cultures growing E coli. Currently on IV ceftriaxone. #HYpotension * BP running in the 80s systolic. * being hydrated with IVF. If BP remains low and does not respond to fluids, will initiate vasopressors. PICC line ordered. * #LEIGH ANN: Cr was 1.46 on admission. Resolved. Cr is now down to 0.78 #Acute on chronic anemia * Hb today is 7.3. Was 9.4 on admission and her baseline is ~ 8. * Will monitor closely and if it drops further, will transfuse and hold eliquis. Check stool for occult blood. * #History of seizure disorder: On lacosamide and Keppra #Parkinson's disease: On Sinemet. * follows Dr Castro and per office note on 01/08/2025. He had been on Sinemet for myoclonus. 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 Complicates acute care, expected recovery and prognosis #DVT Prophylaxis: Already on Eliquis Charges/Coding Visit Charges Inpatient E&M: 98455 Subs Hosp L3
[2025-03-10] MEDS: Chlorhexidine 15 ML PO (09:00)
[2025-03-10] MEDS: Senna/Docusate Sodium 1 Tablet 2 TABLET PO ×2 (09:50→21:13)
[2025-03-10] MEDS: APIXABAN 5 MG TABLET PO ×2 (09:51→21:14)
[2025-03-10] MEDS: Pantoprazole Sodium 40 MG in 0.9% Normal Saline (100mL MB+) 100 ML 300 MG IV (10:09)
--- NOTE | 2025-03-10 12:24 | PCM.PN.TICU ---
Objective Data Objective Data Vital Signs: Vital Signs Last response Temperature 36.7 C 03/10/25 12:00 Temperature Source Core 03/10/25 12:00 Pulse Rate 86 03/10/25 12:00 Pulse Strength Normal (2+) 03/10/25 10:00 Respiratory Rate 16 03/10/25 12:00 Respiratory Effort Mechanically Ventilated 03/10/25 07:25 Respiratory Depth Normal 03/10/25 07:25 Respiratory Pattern Normal 03/10/25 11:31 Blood Pressure 93/55 L 03/10/25 12:00 Blood Pressure Mean 67 03/10/25 12:00 Blood Pressure Source Monitor 03/10/25 12:00 Blood Pressure Position Semi-Fowlers 03/10/25 12:00 Blood Pressure Location Left Forearm 03/10/25 12:00 Pulse Ox 96 03/10/25 12:00 Oxygen Delivery Method Mechanical Ventilator 03/10/25 12:00 Oxygen Flow Rate (L/min) 3 03/08/25 18:03 Fraction of Inspired Oxygen (FIO2) 30 03/10/25 12:00 I&O: I&O Last 24 Hours 03/09/25 03/10/25 03/10/25 23:59 11:59 23:59 Intake Total 573.60 / 2900.11 483.99 / 483.99 Output Total 700 / 1100 250 / 250 Balance -126.40 / 1800.11 233.99 / 233.99 I&O: Total Stay 03/08/25 15:51 thru 03/10/25 11:09 Intake Total 5230.94 Output Total 2075 Balance 3155.94 Current Meds Ordered / Administered: Current meds ordered / Administered Generic Name Dose Route Start Last Admin Trade Name Freq PRN Reason Stop Dose Admin Albuterol Sulfate 2.5 mg 03/08/25 21:42 Albuterol 2.5 Mg/3 Ml Vial.Neb. INHALATION Q2H PRN PRN SOB &/OR WHEEZING Albuterol/Ipratropium 3 ml 03/08/25 22:00 03/10/25 11:30 Ipratropium/Albuterol Sulfate 3 Ml Ampul.Neb INHALATION 3 ml Q4H.RT LOULOU Administration Apixaban 5 mg 03/08/25 22:00 03/10/25 09:51 Apixaban 5 Mg Tablet PO 5 mg BID LOULOU Administration Atorvastatin Calcium 20 mg 03/08/25 22:00 03/09/25 21:52 Atorvastatin Calcium 20 Mg Tablet PO 20 mg QHS LOULOU Administration Carbidopa/Levodopa 2 tablet 03/08/25 22:00 03/10/25 09:51 Carbidopa/Levodopa 25/100 Tablet PO 2 tablet ACHS LOULOU Administration Chlorhexidine Gluconate 15 ml 03/08/25 22:00 03/10/25 09:00 Chlorhexidine 15 Ml PO 15 ml BID LOULOU Administration Chlorhexidine Gluconate 1 each 03/09/25 10:00 03/10/25 02:17 Chlorhexidine Gluc 2% Cloth 1 Each [place] TOPICAL 1 each DAILY LOULOU Administration Fentanyl 100 mls @ 2.5 mls/hr 03/08/25 20:35 03/10/25 11:00 CONT INF 100 mcg/hr UD LOULOU 10 mls/hr Titration Protocol 25 MCG/HR Ceftriaxone Sodium 1 gm in 50 mls @ 100 mls/hr 03/09/25 22:00 03/09/25 22:21 Rocephin IV Infused 2200 LOULOU Infusion Pantoprazole Sodium 40 mg/ 100 mls @ 300 mls/hr 03/09/25 10:00 03/10/25 10:31 Sodium Chloride IV Infused Q24 LOULOU Infusion Sodium Chloride 250 mls @ 15 mls/hr 03/08/25 22:05 03/09/25 17:03 IV 0 mls/hr .[id number] PRN Infusion Saline Flush Sodium Chloride 250 mls @ 15 mls/hr 03/08/25 22:05 IV .[id number] PRN Additional IVPB Infusion Dexmedetomidine HCl 400 mcg/ 100 mls @ 16.85 mls/hr 03/09/25 06:45 03/10/25 11:00 Sodium Chloride CONT INF 0.5 mcg/kg/hr .[id number] LOULOU 16.9 mls/hr Titration Protocol 0.5 MCG/KG/HR Norepinephrine Bitartrate 8 mg 250 mls @ 9.375 mls/hr 03/09/25 10:10 03/09/25 18:01 / Sodium Chloride CONT INF Not Given .[id number] LOULOU Protocol 5 MCG/MIN Lacosamide 200 mg 03/08/25 22:00 03/10/25 10:00 Lacosamide 100 Mg Tablet PO 200 mg BID LOULOU Administration Levetiracetam 750 mg 03/08/25 22:00 03/10/25 09:49 Levetiracetam 750 Mg Tablet PO 750 mg BID LOULOU Administration Lorazepam 0.5 mg 03/09/25 01:00 03/10/25 06:36 Lorazepam 0.5 Mg Tablet PO 0.5 mg 0100,0700,1300,1900 LOULOU Administration Mirtazapine 7.5 mg 03/08/25 22:00 03/09/25 21:52 Mirtazapine 15 Mg Tablet PO 7.5 mg QHS LOULOU Administration Ondansetron HCl 4 mg 03/08/25 21:42 Ondansetron 4 Mg/2 Ml Vial IV Q8H PRN PRN NAUSEA/VOMITING Senna/Docusate Sodium 2 tablet 03/08/25 22:00 03/10/25 09:50 Senna/Docusate Sodium 1 Tablet PO 2 tablet BID LOULOU Administration Sodium Chloride 10 - 40 ml 03/08/25 22:05 03/10/25 06:36 0.9% Saline Lock 10 Ml Syringe IV 10 ml UD PRN Administration SALINE FLUSH Venlafaxine HCl 150 mg 03/09/25 10:00 03/10/25 09:54 Venlafaxine Xr 150 Mg Capsule PO 150 mg DAILY LOULOU Administration Lab / Micro Data 03/10/25 04:20 03/10/25 04:20 Labs: Laboratory Results - last 24 hr 03/09/25 12:42: POC Glucose 118 H 03/09/25 17:56: POC Glucose 110 H 03/10/25 00:24: POC Glucose 140 H 03/10/25 04:20: WBC 5.5, RBC 3.03 L, Hgb 7.3 L, Hct 24.2 L, MCV 79.9 L, MCH 24.1 L, MCHC 30.2 L, RDW Std Deviation 42.5, RDW Coeff of Immanuel 14.7 H, Plt Count 151, MPV 10.0, Immature Gran % (Auto) 0.400, Neut % (Auto) 56.0, Lymph % (Auto) 32.3, [place] % (Auto) 8.2, Eos % (Auto) 2.7, Baso % (Auto) 0.4, Absolute Neuts (auto) 3.1, Absolute Lymphs (auto) 1.77, Nucleated RBC % 0, Sodium 138, Potassium 4.1, Chloride 103, Carbon Dioxide 22.5, Anion Gap 13, BUN 16, Creatinine 0.78, Estim Creat Clear Calc 102.96, Est GFR (MDRD) Non-Af 88, BUN/Creatinine Ratio 20.8 H, Glucose 137 H, Calcium 8.7 03/10/25 06:42: POC Glucose 127 H Micro: Microbiology 03/08/25 22:15 Sputum, Induced/Lukens Gram Stain - Final 03/08/25 22:15 Sputum, Induced/Lukens Respiratory Culture - Preliminary Beta streptococcus 03/08/25 16:50 Urine, Clean Catch Urine Culture - Final Presumptive E. coli 03/08/25 22:15 Mucosa - Nasopharyngeal Respiratory Panel (PCR) - Final ABG Data ABG results: ABG 03/10/25 05:17 Specimen Type ART Sample Site R Radial pH 7.44 Bicarbonate Actual 27.4 H Total CO2 29 Base Excess 3 H O2 Saturation 96 O2 % 30.0 ABG pCO2 40.4 ABG pO2 77 Respiration Rate 16 O2 Delivery Device Adult Vent Vent Mode AC Tidal Volume 400.0 POC PEEP 5 Imaging Radiology Impression Echocardiogram 03/09/25 10:09 Interpretation Summary The estimated ejection fraction is 50 %. The right atrium is mildly enlarged. Mildly increased RV wall thickness Mild global right ventricular systolic dysfunction. Left ventricular systolic function is normal. No regional wall motion abnormalities noted. Ordering Physician: Miguel Ángel Martinez Performed By: Eloisa Dixon RDCS Chest X-Ray 03/10/25 04:08 IMPRESSION: Tubes and lines as detailed. Stable pulmonary findings Reading Location: [place] [id number] Assessment and Plan . Assessment and plan: 59-year-old female history of sleep apnea, thoracic compression fractures, COPD and CHF on 3L home O2, anxiety, chronic pain, Parkinson's, seizure disorder, GERD, hypertension, PE who presented to [facility] ED 03/08/2025 due to episode of decreased consciousness as well as headache. Subjective: Pt seen and examined. Intubated, sedated. Good UOP. Afebrile. BPs much better overall. Awake and appropriately following commands. Precedex @ 0.5 16 400 5 30 Objective: PE: General: Well developed, obese ac/ch ill appearing female; + MV HEENT: anicteric Sclera; + ETT, nl nose; supple neck, no masses Cardiovascular: Regular Rate and Rhythm; No murmurs, rubs, gallops; no displaced PMI; trace BLE edema Respiratory: faint crackles, no wheezes or rhonchi Abdominal: Non-tender; Non distended; hypoBS x 4; No Hepatosplenomegaly Extremities: Warm, well perfused; No clubbing, cyanosis; capillary refill < 2 sec Neurological: sedated but awake & appropriately nodding & following all commands; no focal deficits A/P #Sepsis #Left lower lobe pneumonia #UTI #Acute on chronic hypoxemic hypercapnic respiratory failure #Acute metabolic/toxic encephalopathy #LEIGH ANN #H/O Seizure #H/O STEPHANIE #H/O Parkinsons #H/O COPD #H/O VTE PLAN: -Cont MV; settings reviewed/adjusted; cont sedation/analgesia; SAT/SBTs today --> anticipate extubation today -Sp IVF resuscitation, BPs remains soft, CXR looks more congested, would not do cont IVF at this time unless worsening UOP; start NEpi if needed to keep MAP > 65; F/U TTE --> improved BP, stable CXR, will give Lasix x1 to facilitate vent liberation -Azithromycin/Ceftriaxone; F/U Cx -Follow renal panel and urine output -Check Salicylate and Acetaminophen level --> WNL -Continue home medications NPO Eliquis, PPI Guarded prognosis Critical Care Time: 50 min The entirety of this encounter was done via Telemedicine
[2025-03-10 13:46] LABS: Allen Test Positive; Base Excess 5 mmol/L (-2 to +2); FI02 30.0; PEEP 5; PO2 48 mmHG (75-100); SITE R Radial; SO2 85 % (95-99)
--- NOTE | 2025-03-10 13:50 | MDS.RN ---
Dr Talbert called and discussed intubation for the patient at this time. Given the approval from the Dr to extubate based on her weaning trial and also her ABG.
--- NOTE | 2025-03-10 23:37 | CPS ---
Decreased BIPAP pressures for pt comfort.
[2025-03-11] VITALS (21 sets, daily range): BP systolic 131–162; BP diastolic 77–91; PULSE 81–98; RESP 12–25; TEMP 36.1–37.4; O2SAT 95–100; BMI 53.0
[2025-03-11] MEDS: 0.9% Saline Lock 10 ML Syringe IV ×3 (05:05→22:36)
[2025-03-11 05:31] LABS: Hematocrit 26.0 % (37-47); Hemoglobin 8.2 g/dL (12.0-15.0); Immature Granulocytes Count 0.040 X10^3/uL (0.0-0.0); Mean Corp Hgb Conc 31.5 g/dL (32-36); Mean Corpuscular Volume 77.6 fL (81-99); Mean Platelet Vol. 10.8 fl (6.2-12.0); NRBC Flagged by Analyzer 0 % (0-5); Platelet Count 202 K/mm3 (150-450); RBC Distribution Width CV 14.6 % (11.6-14.6); RBC Distribution Width SD 41.3 fl (35.1-43.9); Red Blood Count 3.35 M/mm3 (4.2-5.4); White Blood Count 8.9 K/mm3 (4.4-11.0)
[2025-03-11 05:59] LABS: Anion Gap 12 (5-15); BUN 15 mg/dL (4-19); BUN/Creat Ratio 21.5 RATIO (10-20); Calcium,Total 8.9 mg/dL (7.6-11.0); Carbon Dioxide 26.4 mmol/L (21.0-32.0); Chloride 101 mmol/L (98-108); Estimated Creatinine Clearance 112.92 ml/min (50-250); Glucose 113 mg/dL (70-99); Potassium 3.3 mmol/L (3.3-5.1)
--- NOTE | 2025-03-11 06:54 | PN.CC_ITS ---
Assessment & Plan Assessment/Plan (1) COPD (chronic obstructive pulmonary disease): QUALIFIERS: COPD type: unspecified COPD Qualified Code(s): J44.9 - Chronic obstructive pulmonary disease, unspecified PLAN: Plan RECOMMENDATIONS: 1. Supplemental oxygen to maintain saturations at or above 90%. 2. Continue antimicrobials, pending finalized culture results. 3. Continue scheduled bronchodilator therapy. 4. PAP therapy with naps and nightly. 5. Encourage incentive spirometer use and mobilize patient as tolerated. 6. The patient is medically stable for transfer out of the intensive care unit. 7. Will sign off from a critical care perspective. Please call with any additional questions. IMPRESSIONS: 1. Acute on chronic combined respiratory failure Most likely secondary to COPD exacerbation related to left lower lobe pneumonia. With supportive care, including antimicrobials, diuretics and bronchodilators, the patient was able to be successfully extubated. She is doing well from a respiratory perspective on minimal supplemental O2. Accordingly, recommend continuing antibiotics to complete treatment course, pending finalized culture results. Continue to wean supplemental oxygen to maintain saturations at or above 90%. Encourage incentive spirometer use and mobilize patient as tolerated. 2. Acute metabolic encephalopathy Resolved at this time. Continue supportive care as noted above. 3. History of chronic anemia/underlying seizure disorder/Parkinson's disease/history of VTE on Eliquis Complicates care, management, recovery and prognosis. Continue home medications as indicated. Physical therapy to work with the patient. This note was generated with [employer] dictation software. It may contain incorrect words, spelling, and punctuation that were not noted in checking the note before signing. Subjective Subjective The patient was seen and examined at the bedside this morning. Events from the last 24 hours have been reviewed. The patient is currently afebrile, hemodynamically stable and maintaining appropriate oxygen saturations on 3 L/min via nasal cannula. The patient cordelia on scheduled bronchodilators and antimicrobials. She has no specific complaints this morning. White blood cell count is normal. Hemoglobin was noted to be 8.2 g/dL with a normal platelet count. Chemistry profile was unremarkable. Objective Data Objective Data The patient's most recent lab work, culture data and imaging studies have all been personally reviewed. Sputum culture was positive for group B streptococcus with urine culture positive for presumptive E. coli. Vital Signs: Vital Signs Temp Pulse Resp BP Pulse Ox O2 Del Method O2 Flow Rate 99.1 F 90 18 162/88 H 99 Nasal Cannula 3 03/11/25 06:00 03/11/25 06:45 03/11/25 06:45 03/11/25 06:00 03/11/25 06:45 03/11/25 06:45 03/11/25 06:45 FiO2 24 03/11/25 03:00 Oxygen Flow Rate (L/min) 3 Oxygen Delivery Method Nasal Cannula Weight: 289 lb 14.526 oz Body Mass Index (BMI) 53.0 Intake & Output: Intake and Output for Last 24 Hours 03/09/25 03/10/25 03/11/25 23:59 23:59 23:59 Intake Total 2873.41 / 2900.11 753.57 / 753.57 Output Total 1100 / 1100 3675 / 4525 1000 / 1000 Balance 1773.41 / 1800.11 -2921.43 / -3771.43 -1000 / -1000 Lab / Micro Data Attestation: I reviewed the patient's lab results. 03/11/25 05:13 03/11/25 05:13 Labs: Laboratory Results - last 24 hr 03/10/25 06:42: POC Glucose 127 H 03/10/25 12:24: POC Glucose 132 H 03/10/25 18:16: POC Glucose 142 H 03/11/25 05:13: WBC 8.9, RBC 3.35 L, Hgb 8.2 L, Hct 26.0 L, MCV 77.6 L, MCH 24.5 L, MCHC 31.5 L, RDW Std Deviation 41.3, RDW Coeff of Immanuel 14.6, Plt Count 202, MPV 10.8, Immature Gran % (Auto) 0.400, Neut % (Auto) 68.7, Lymph % (Auto) 20.2, [place] % (Auto) 7.2, Eos % (Auto) 3.1, Baso % (Auto) 0.4, Absolute Neuts (auto) 6.1, Absolute Lymphs (auto) 1.80, Nucleated RBC % 0, Sodium 140, Potassium 3.3, Chloride 101, Carbon Dioxide 26.4, Anion Gap 12, BUN 15, Creatinine 0.70, Estim Creat Clear Calc 112.92, Est GFR (MDRD) Non-Af 99, BUN/Creatinine Ratio 21.5 H, Glucose 113 H, Calcium 8.9 Micro: Microbiology 03/08/25 22:15 Sputum, Induced/Lukens Gram Stain - Final 03/08/25 22:15 Sputum, Induced/Lukens Respiratory Culture - Preliminary Beta streptococcus 03/08/25 16:50 Urine, Clean Catch Urine Culture - Final Presumptive E. coli 03/08/25 22:15 Mucosa - Nasopharyngeal Respiratory Panel (PCR) - Final 03/08/25 16:07 Mucosa - Nose SARS-CoV-2, Influenza & RSV (PCR) - Final ABG Data ABG results: ABG 03/10/25 13:43 Specimen Type ART Sample Site R Radial pH 7.45 Bicarbonate Actual 28.4 H Total CO2 30 Base Excess 5 H O2 Saturation 85 L O2 % 30.0 ABG pCO2 40.6 ABG pO2 48 L Олег Test Positive O2 Delivery Device Adult Vent Vent Mode CPAP/PS POC PEEP 5 Physical Exam Const alert and no apparent distress Constitutional Narrative: Morbidly obese. Resting comfortably in bed. General Appearance: cooperative HEENT normocephalic, head/scalp atraumatic and moist oral mucous membranes Eyes PERRL, EOMs intact bilaterally and conjunctivae normal Neck supple General: trachea midline Chest inspection of chest normal Resp normal respiratory effort Auscultation: diminished lung sounds Cardio regular rate and regular rhythm GI normal to inspection, nondistended, normoactive bowel sounds Extremity no clubbing, cyanosis or edema Skin no rashes or lesions noted Neuro CN's II-XII intact bilaterally, moves all extremities and no focal motor deficits Psych Mood & Affect: flat affect Charges/Coding Visit Charges Inpatient E&M: 95258 Subs Hosp L3
[2025-03-11] MEDS: APIXABAN 5 MG TABLET PO (08:55)
[2025-03-11] MEDS: Senna/Docusate Sodium 1 Tablet 2 TABLET PO ×2 (08:56→22:37)
[2025-03-11] MEDS: Pantoprazole Sodium 40 MG in 0.9% Normal Saline (100mL MB+) 100 ML 300 MG IV ×2 (09:51→22:35)
[2025-03-11 10:24] LABS: Ferritin 82 ng/mL (22-378); Iron 21 ug/dL (50-170); Iron Binding Capacity,Total 274 ug/dL (250-450); Iron Binding Capacity,Unsat 253 ug/dL (228-428)
--- NOTE | 2025-03-11 11:32 | PN_ITS ---
Subjective Subjective Patient seen and examined. She was extubated to 3L of oxygen yesterday. She has no complaints this morning. Per her nurse, her stools were noted to be dark so a stool occult blood test was done this morning, which was positive. Patient says she has a history of hemorrhoids. Hb is 8.2 this morning. Review of systems is otherwise negative. Objective Data Objective Data Vital Signs: Vital Signs Temp Pulse Resp BP Pulse Ox O2 Del Method O2 Flow Rate 99.1 F 90 18 162/88 H 98 Nasal Cannula 2 03/11/25 06:00 03/11/25 06:45 03/11/25 06:45 03/11/25 06:00 03/11/25 10:48 03/11/25 06:45 03/11/25 10:50 FiO2 24 03/11/25 03:00 Oxygen Flow Rate (L/min) 2 Oxygen Delivery Method Nasal Cannula Weight: 289 lb 14.526 oz Body Mass Index (BMI) 53.0 Intake & Output: Intake and Output for Last 24 Hours 03/09/25 03/10/25 03/11/25 23:59 23:59 23:59 Intake Total 2873.41 / 2900.11 753.57 / 753.57 Output Total 1100 / 1100 3675 / 4525 1000 / 1000 Balance 1773.41 / 1800.11 -2921.43 / -3771.43 -1000 / -1000 Lab / Micro Data 03/11/25 05:13 03/11/25 05:13 Labs: Laboratory Results - last 24 hr 03/10/25 12:24: POC Glucose 132 H 03/10/25 18:16: POC Glucose 142 H 03/11/25 05:13: WBC 8.9, RBC 3.35 L, Hgb 8.2 L, Hct 26.0 L, MCV 77.6 L, MCH 24.5 L, MCHC 31.5 L, RDW Std Deviation 41.3, RDW Coeff of Immanuel 14.6, Plt Count 202, MPV 10.8, Immature Gran % (Auto) 0.400, Neut % (Auto) 68.7, Lymph % (Auto) 20.2, [place] % (Auto) 7.2, Eos % (Auto) 3.1, Baso % (Auto) 0.4, Absolute Neuts (auto) 6.1, Absolute Lymphs (auto) 1.80, Nucleated RBC % 0, Sodium 140, Potassium 3.3, Chloride 101, Carbon Dioxide 26.4, Anion Gap 12, BUN 15, Creatinine 0.70, Estim Creat Clear Calc 112.92, Est GFR (MDRD) Non-Af 99, BUN/Creatinine Ratio 21.5 H, Glucose 113 H, Calcium 8.9, Iron 21 L, TIBC 274, Iron Saturation 8.0 L, Unsaturated IBC 253, Ferritin 82 Micro: Microbiology 03/11/25 08:40 Stool Stool Occult Blood (KAELA) - Final Occult Blood Positive 03/08/25 22:15 Sputum, Induced/Lukens Gram Stain - Final 03/08/25 22:15 Sputum, Induced/Lukens Respiratory Culture - Final Streptococcus agalactiae (B) 03/08/25 16:07 Blood Culture (Wb) - Anticubital Left Blood Culture - Preliminary No growth in 48 hours. 03/08/25 16:00 Blood Culture (Wb) - Anticubital Left Blood Culture - Preliminary No growth in 48 hours. 03/08/25 16:50 Urine, Clean Catch Urine Culture - Final Presumptive E. coli 03/08/25 22:15 Mucosa - Nasopharyngeal Respiratory Panel (PCR) - Final 03/08/25 16:07 Mucosa - Nose SARS-CoV-2, Influenza & RSV (PCR) - Final ABG Data ABG results: ABG 03/10/25 13:43 Specimen Type ART Sample Site R Radial pH 7.45 Bicarbonate Actual 28.4 H Total CO2 30 Base Excess 5 H O2 Saturation 85 L O2 % 30.0 ABG pCO2 40.6 ABG pO2 48 L Олег Test Positive O2 Delivery Device Adult Vent Vent Mode CPAP/PS POC PEEP 5 Physical Exam Const alert, oriented x3 and no apparent distress Constitutional Narrative: flat affect HEENT normocephalic, head/scalp atraumatic, moist oral mucous membranes and oropharynx normal Eyes PERRL Neck supple Lymph Lymphatic: no lymphedema noted Resp Resp Narrative: mildly diminished breath sounds bibasally, no wheezes or crackles. On 2L of oxygen by nasal canula Cardio regular rate, regular rhythm, S1 normal heart sound, S2 normal heart sound and no murmurs GI normal to inspection, nondistended, normoactive bowel sounds, soft to palpation and non-tender Extremity normal capillary refill, no clubbing, cyanosis or edema and no calf tenderness General Extremity: no tenderness to palpation of joints or extremities Skin General Skin Exam: no breakdown Neuro CN's II-XII intact bilaterally, no focal motor deficits and no sensory deficits noted Motor Exam: general weakness Psych thought process normal and cooperative Mood & Affect: flat affect Assessment & Plan Assessment/Plan (1) Acute hypercapnic respiratory failure: (2) UTI (urinary tract infection): PLAN: Plan #Acute on chronic hypoxic and hypercapnic respiratory failure * Patient was admitted with a complaint of altered mental status and shortness of breath. ABG done showed hypercapnic respiratory acidosis. She was unable to tolerate BiPAP so was intubated. * She is on lorazepam and methadone as well as oxycodone at home. She also did not wear her BiPAP the night before admission so this together with her medications made her more lethargic. * extubated yesterday and is on 3L of oxygen. * 2D echo today showed EF of 50% with no regional wall motion abnormalities noted and mild global right ventricular systolic dysfunction * Critical care on board. Titrate oxygen to maintain saturation above 90%. * Chest x-ray on admission did show mild cardiomegaly with diffuse pulmonary vascular congestion as well as left lung base consolidation. * sputum cultures growing Beta streptococcus (rare growth) * #Acute metabolic encephalopathy due to acute on chronic hypoxic and hypercapnic respiratory failure and UTI * Management as above. * on IV ceftriaxone for UTI #UTI: Urinalysis showed 4+ bacteria. urine cultures growing E coli. Currently on IV ceftriaxone. #HYpotension * resolved. * #LEIGH ANN: resolved. #Acute on chronic anemia * Hb today is 8.2, up from 7.3 yesterday * on eliquis. She says she does have hemorrhoids which occasionally bleed. * check iron profile. If iron is low, will consult gastroenterology. * Her baseline Hb is ~ 8-9. * iron profile does show iron deficiency anemia which is chronic * will hold eliquis and consult GI. * * #History of seizure disorder: On lacosamide and Keppra #Parkinson's disease: On Sinemet. * follows Dr Castro and per office note on 01/08/2025. He had been on Sinemet for myoclonus. 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 Complicates acute care, expected recovery and prognosis #DVT Prophylaxis: Already on Eliquis. Hold eliquis o/a of positive FOBT. SCDs Charges/Coding Visit Charges Inpatient E&M: 16395 Subs Hosp L2
--- NOTE | 2025-03-11 11:59 | CASEMGMT ---
Addendum entered by Beverly Swanson 03/11/25 14:02: Emelyn De León [facility] JERRICA Zarate Addendum entered by Beverly Swanson 03/11/25 13:59: Social Work SW spoke with Emelyn De León from [facility]. Emelyn is pt's newly assigned Senior Cost Analyst. Pt does have a medical alert. Pt's sister is her paid caregiver. SW to notify Emelyn at time of pt's discharge. JERRICA Zarate Original Note: Social Work SW met with pt and pt's sister Marisol. Pt states she does have services through the Home Care Waiver Program [facility]. Pt is uncertain of CM. Phone call to [facility] ([phone]). Pt has been accepted into the [facility] program but case has just been established and pt does not have a CM assigned yet and service plan has not been established. JERRICA Davila
--- NOTE | 2025-03-11 14:33 | CASEMGMT ---
SW A list of HH providers including quality and resource use data and consistent with the patient's preferred geographic region, medical needs, and insurance network was created in [facility]. This list was provided to the JAE Hua
--- NOTE | 2025-03-11 14:48 | CASEMGMT ---
PAT ALBA to the pt room at this time to review DC planning. Pt's brother at bedside. This RN CM reviewed how the pt has done with therapy. Pt states that she prefers to go home @ the time of DC and currently denies SNF needs. Pt wishes to continue Palliative Care Services. Pt's brother states that he can bring in the pt's POC @ DC. Pt's brother states that he is also able to provide assistance to the pt as well as the sister, Marisol. Pt states that she has plenty of DME at home to help her out. This RN CM inquired if the pt would be interested in additional skilled HHC including SN, PT, and OT. Pt states that she would be interested in skilled HHC. This RN CM provided the pt with the HHC list at this time (See previous Care Management note). Pt encouraged to select 3 preferences and that CM will follow up for referrals. Pt states understanding and denies further questions or concerns at this time.
--- NOTE | 2025-03-11 15:00 | CASEMGMT ---
Social Work SW called to pt room by pt and pt's brother Mike. Pt now requesting to complete HCPOA and Living Will. SW assisted pt in starting documents which would name pt brother Mike Bradshaw as HCPQUOC. However, pt does not have the address and phone number for first alternate Jose Bradshaw. Mike plans to get the address tonight and will call this SW and inform of needed information. SW will follow up with pt to complete documents once information is obtained. JERRICA Davila
[2025-03-11] MEDS: 0.9% Normal Saline (250mL Bag) 250 ML 15 ML IV (22:34)
[2025-03-12] VITALS (13 sets, daily range): BP systolic 138–155; BP diastolic 80–95; PULSE 78–94; RESP 16–20; TEMP 36.6–36.8; O2SAT 97–100; BMI 52.0
--- NOTE | 2025-03-12 03:04 | CPS ---
pt declined use of hospital bipap
[2025-03-12 05:46] LABS: Hematocrit 24.4 % (37-47); Hemoglobin 7.5 g/dL (12.0-15.0); Immature Granulocytes Count 0.020 X10^3/uL (0.0-0.0); Mean Corp Hgb Conc 30.7 g/dL (32-36); Mean Corpuscular Volume 79.5 fL (81-99); Mean Platelet Vol. 11.1 fl (6.2-12.0); NRBC Flagged by Analyzer 0 % (0-5); Platelet Count 195 K/mm3 (150-450); RBC Distribution Width CV 14.8 % (11.6-14.6); RBC Distribution Width SD 42.8 fl (35.1-43.9); Red Blood Count 3.07 M/mm3 (4.2-5.4); White Blood Count 6.4 K/mm3 (4.4-11.0)
[2025-03-12 06:15] LABS: Anion Gap 11 (5-15); BUN 16 mg/dL (4-19); BUN/Creat Ratio 22.5 RATIO (10-20); Calcium,Total 8.7 mg/dL (7.6-11.0); Carbon Dioxide 25.4 mmol/L (21.0-32.0); Chloride 102 mmol/L (98-108); Estimated Creatinine Clearance 111.33 ml/min (50-250); Glucose 116 mg/dL (70-99); Potassium 3.3 mmol/L (3.3-5.1)
--- NOTE | 2025-03-12 09:49 | CASEMGMT ---
Addendum entered by Mikki Gramajo 03/12/25 11:57: Social Work SW asked to return to room. SW spoke w/pt again, she had questions about where her money would go after she . Pt did not understand whether or not the documents we completed addressed this. SW explained pt may want to complete a last will, explained that she can look up a form online or an deputy attorney general can assist w/this. No further social service needs anticipated at this time. HARSHAD Robert Original Note: Social Work Pt's nephew called in his address to SW. LW/POA documents completed and signed, SW gave pt originals and copies, and copies were placed on the chart. HARSHAD Robert
[2025-03-12] MEDS: Senna/Docusate Sodium 1 Tablet 2 TABLET PO ×2 (10:02→22:04)
[2025-03-12] MEDS: Pantoprazole Sodium 40 MG in 0.9% Normal Saline (100mL MB+) 100 ML 300 MG IV ×2 (10:09→20:28)
--- NOTE | 2025-03-12 10:11 | CASEMGMT ---
Addendum entered by Ivy Ya 03/12/25 15:19: PAT ALBA received call back from [facility] and they are able to accept patient with planned start of care for Sunday. PAT ALBA updated patient, patient had no further questions or concerns. Original Note: PAT ALBA in to discuss HHC with patient. Patient states she thinks her brother took HHC list with him. PAT ALBA called brother, Mike, to dicsuss HHC options. Ervil states he believe the HHC list was misplaced. PAT ALBA reviewed list over the phone with Mike, 6 options available. Brother agreeable to have multiple referrals sent due to patient having EDWIGE and then reviewing C agencies that accept patient. PAT ALBA updated patient, patient agreeable to plan. Patient states she [facility]. PAT ALBA called [facility] to inquire if they are taking EDWIGE patients at this time, message left. CM will continue to follow this patient and plan for a safe discharge.
--- NOTE | 2025-03-12 13:21 | PN_ITS ---
Subjective Subjective Patient seen and examined with her nurse by her bedside. She had no active complaints today and had an uneventful night. Review of systems is otherwise negative. Hb today is 7.5, down from 8.2 yesterday. GI consulted. Darrion on hold. Objective Data Objective Data Vital Signs: Vital Signs Temp Pulse Resp BP Pulse Ox O2 Del Method O2 Flow Rate 98.3 F 94 18 149/95 H 98 Nasal Cannula 2 03/12/25 09:58 03/12/25 11:24 03/12/25 09:58 03/12/25 09:58 03/12/25 09:58 03/12/25 10:00 03/12/25 10:00 FiO2 24 03/11/25 03:00 Oxygen Flow Rate (L/min) 2 Oxygen Delivery Method Nasal Cannula Weight: 284 lb 6.341 oz Body Mass Index (BMI) 52.0 Intake & Output: Intake and Output for Last 24 Hours 03/10/25 03/11/25 03/12/25 23:59 23:59 23:59 Intake Total 753.57 / 753.57 970 / 970 617.25 / 617.25 Output Total 3675 / 4525 1225 / 1225 Balance -2921.43 / -3771.43 -255 / -255 617.25 / 617.25 Lab / Micro Data 03/12/25 04:49 03/12/25 04:49 Labs: Laboratory Results - last 24 hr 03/11/25 14:02: POC Glucose 145 H 03/11/25 15:49: POC Glucose 112 H 03/11/25 22:49: POC Glucose 113 H 03/12/25 04:49: WBC 6.4, RBC 3.07 L, Hgb 7.5 L, Hct 24.4 L, MCV 79.5 L, MCH 24.4 L, MCHC 30.7 L, RDW Std Deviation 42.8, RDW Coeff of Immanuel 14.8 H, Plt Count 195, MPV 11.1, Immature Gran % (Auto) 0.300, Neut % (Auto) 57.3, Lymph % (Auto) 29.7, [place] % (Auto) 8.1, Eos % (Auto) 4.1, Baso % (Auto) 0.5, Absolute Neuts (auto) 3.7, Absolute Lymphs (auto) 1.90, Nucleated RBC % 0, Sodium 139, Potassium 3.3, Chloride 102, Carbon Dioxide 25.4, Anion Gap 11, BUN 16, Creatinine 0.71, Estim Creat Clear Calc 111.33, Est GFR (MDRD) Non-Af 98, BUN/Creatinine Ratio 22.5 H, Glucose 116 H, Calcium 8.7 Micro: Microbiology 03/11/25 08:40 Stool Stool Occult Blood (KAELA) - Final Occult Blood Positive 03/08/25 22:15 Sputum, Induced/Lukens Gram Stain - Final 03/08/25 22:15 Sputum, Induced/Lukens Respiratory Culture - Final Streptococcus agalactiae (B) 03/08/25 16:07 Blood Culture (Wb) - Anticubital Left Blood Culture - Preliminary No growth in 48 hours. 03/08/25 16:00 Blood Culture (Wb) - Anticubital Left Blood Culture - Preliminary No growth in 48 hours. 03/08/25 16:50 Urine, Clean Catch Urine Culture - Final Presumptive E. coli 03/08/25 22:15 Mucosa - Nasopharyngeal Respiratory Panel (PCR) - Final 03/08/25 16:07 Mucosa - Nose SARS-CoV-2, Influenza & RSV (PCR) - Final Physical Exam Const alert, oriented x3 and no apparent distress Constitutional Narrative: class III obesity HEENT normocephalic, head/scalp atraumatic, moist oral mucous membranes and oropharynx normal Eyes PERRL Neck supple Lymph Lymphatic: no lymphedema noted Resp Resp Narrative: mildly diminished breath sounds bibasally, no wheezes or crackles. On 2L of oxygen by nasal canula Cardio regular rate, regular rhythm, S1 normal heart sound, S2 normal heart sound and no murmurs GI normal to inspection, nondistended, normoactive bowel sounds, soft to palpation and non-tender Extremity normal capillary refill, no clubbing, cyanosis or edema and no calf tenderness General Extremity: no tenderness to palpation of joints or extremities Skin General Skin Exam: no breakdown Neuro CN's II-XII intact bilaterally, no focal motor deficits and no sensory deficits noted Motor Exam: general weakness Psych thought process normal and cooperative Mood & Affect: flat affect Assessment & Plan Assessment/Plan (1) Acute hypercapnic respiratory failure: (2) UTI (urinary tract infection): PLAN: Plan #Acute on chronic hypoxic and hypercapnic respiratory failure * Patient was admitted with a complaint of altered mental status and shortness of breath. ABG done showed hypercapnic respiratory acidosis. She was unable to tolerate BiPAP so was intubated. * She is on lorazepam and methadone as well as oxycodone at home. She also did not wear her BiPAP the night before admission so this together with her medications made her more lethargic. * extubated on 03/10/2025 and is on 3L of oxygen. * 2D echo today showed EF of 50% with no regional wall motion abnormalities noted and mild global right ventricular systolic dysfunction * Critical care on board. Titrate oxygen to maintain saturation above 90%. * Chest x-ray on admission did show mild cardiomegaly with diffuse pulmonary vascular congestion as well as left lung base consolidation. * sputum cultures growing Beta streptococcus (rare growth) * #Acute metabolic encephalopathy due to acute on chronic hypoxic and hypercapnic respiratory failure and UTI * Management as above. * on IV ceftriaxone for UTI * resolved #UTI: Urinalysis showed 4+ bacteria. urine cultures growing E coli. Currently on IV ceftriaxone. #HYpotension * resolved. * #LEIGH ANN: resolved. #Acute on chronic anemia * Hb today isdown to 7.5, from 8.2 yesterday * on eliquis. She says she does have hemorrhoids which occasionally bleed. * Her baseline Hb is ~ 8-9. * iron profile does show iron deficiency anemia which is chronic * eliquis held. GI consulted. For EGD tomorrow * * #History of seizure disorder: On lacosamide and Keppra #Parkinson's disease: On Sinemet. * follows Dr Castro and per office note on 01/08/2025. She had been on Sinemet for myoclonus. #History of thromboembolism: On Eliquis #History of STEPHANIE: Uses CPAP nightly as needed obesity: BMI is 53.9. Complicates acute care, expected recovery and prognosis #DVT Prophylaxis: Already on Eliquis. Hold eliquis o/a of positive FOBT. SCDs Charges/Coding Visit Charges Inpatient E&M: 10905 Subs Hosp L2
--- NOTE | 2025-03-12 17:11 | CON.PCM.GI_ITS ---
HPI Consult Data Date of Consult: 03/12/25 HPI Narrative Reason for Consultation: Anemia HPI Narrative: LUIS A CUMMINGS, is a 59-year-old female history of sleep apnea, thoracic compression fractures, COPD and CHF on 3 L home O2, anxiety, chronic pain, Parkinson's, seizure disorder, GERD, hypertension, PE who presented to [facility] ED 03/08/2025 due to episode of decreased consciousness as well as headache. Patient initially had BiPAP placed in the ED but after 2 minutes it was taken off as she was nauseous, she was given Zofran and it was replaced, she was put on AVAPS which she was tolerating and had been on it for about an hour. Patient intubated and was later extubated. She was moved down to the PCU. I was asked to see her due to the fact that she was on anticoagulation and that the patient is very low hemoglobin. It she did have some lower GI bleeding but she attributed that to narcotics and constipation along with hemorrhoidal disease recurrent hemoglobin has been ranging between 7.3 and 7.8. She takes Eliquis 5 mg twice a day. She has a history of pulmonary embolus. [facility] Medical History H/O long-term (current) use of anticoagulants Falls frequently FTT (failure to thrive) in adult Chronic anemia Compression fracture of T6 vertebra Compression fracture of T5 vertebra Cancer CPAP (continuous positive airway pressure) dependence Sleep apnea Coronary artery disease Myocardial infarct DVT (deep venous thrombosis) Seizures DVT (deep vein thrombosis) in Cardiopulmonary arrest with successful resuscitation Wears dentures Wears glasses Back pain TIA (transient ischemic attack) GERD (gastroesophageal reflux disease) BiPAP (biphasic positive airway pressure) dependence Former smoker On home oxygen therapy Cardiology follow-up encounter Hx of echocardiogram Hx of cardiovascular stress test Essential hypertension MSSA (methicillin susceptible Staphylococcus aureus) pneumonia Restrictive lung disease Chronic narcotic dependence Pulmonary embolism Diastolic dysfunction Syncope and collapse STEPHANIE (obstructive sleep apnea) HLD (hyperlipidemia) Anxiety and depression Morbid obesity Bilateral peripheral pulmonary emboli Hypothyroidism COPD (chronic obstructive pulmonary disease) Home Medications ?Medication ?Instructions ?Recorded ?Last Taken ?Type compr.stocking,thigh,reg,x-lrg #24 ea 01/15/24 Unknown Rx miscellaneous medical supply 1 ea miscellaneous DAILY debility 01/16/24 Unknown Rx #1 ea miscellaneous medical supply 1 ea miscellaneous DAILY #1 ea 04/29/24 Unknown Rx miscellaneous medical supply 1 ea miscellaneous DAILY #1 ea 04/29/24 Unknown Rx rosuvastatin 10 mg tablet 10 mg PO DAILY cholesterol 1 month 06/23/24 Unknown Rx #30 tabs albuterol sulfate 90 mcg/actuation 2 puff inhalation Q 6H PRN 06/26/24 Unknown Rx aerosol inhaler shortness of breath or wheez ing #8.5 grams miscellaneous medical supply #1 ea 07/08/24 Unknown Rx ondansetron HCl 4 mg tablet 4 mg PO Q8H PRN nausea and 07/08/24 Unknown Rx vomiting #30 tabs miscellaneous medical supply #1 ea 07/29/24 Unknown Rx naloxone 4 mg/actuation nasal spray 1 spray intranasal Q2M PRN opioid 08/12/24 Unknown History overdose sennosides 8.6 mg-docusate sodium 1 tab-cap PO DAILY 0 08/12/24 Unknown History 50 mg tablet (Senexon-S) acetaminophen 325 mg tablet 650 mg (2 x 325 mg) PO Q4H PRN PRN 08/15/24 Unknown Rx Fever, pain -05/01 #0 tabs lorazepam 1 mg tablet 1 mg PO 0100,0700,1300,1900 #0 tabs 08/15/24 Unknown Rx methadone 10 mg tablet 10 mg PO Q8 #0 tabs 08/15/24 Unknown Rx oxycodone 15 mg tablet 15 mg PO Q4H PRN pain 3 days #10 08/15/24 Unknown Rx tabs mupirocin 2 % topical ointment 1 applic topical BID #2 2 grams 08/28/24 Unknown Rx polyethylene glycol 3350 17 4 g PO DAILY stool softene r #119 10/29/24 Unknown Rx gram/dose oral powder (Miralax) grams metoprolol succinate 100 mg 50 mg PO DAILY PRN blood p ressure 11/14/24 Unknown History tablet,extended release 24 hr furosemide 20 mg tablet 30 mg (1.5 x 20 mg) PO DAILY 12/17/24 Unknown Rx diuretic #45 TABLETS venlafaxine 150 mg 150 mg PO DAILY depression # 90 caps 12/29/24 Unknown Rx capsule,extended release 24 hr (Effexor XR) cholecalciferol (vitamin D3) 1,250 1,250 mcg PO QWEEK supplement #8 12/30/24 Unknown Rx mcg (50,000 unit) capsule caps mirtazapine 7.5 mg tablet 7.5 mg PO QHS sleep #30 tabs 01/06/25 Unknown Rx carbidopa 25 mg-levodopa 100 mg 2 tab PO .QID #240 tab s 01/08/25 Unknown Rx tablet lacosamide 200 mg tablet 200 mg PO BID #60 tabs 01/08 Unknown Rx levetiracetam 750 mg tablet 750 mg PO BID seizures #60 tabs 01/08/25 Unknown Rx apixaban 5 mg tablet (Eliquis) 5 mg PO BID blood thinn er #60 tabs 03/02/25 Unknown Rx losartan 100 mg tablet (Cozaar) 100 mg PO DAILY blood pressure #90 03/05/25 Unknown Rx tabs omeprazole 20 mg capsule,delayed 20 mg PO DAILY acid r eflux #30 caps 03/05/25 Unknown Rx release OXYGEN - Supplemental ([facility] 03/12/25 Unknown History INFORMATIONAL USE ONLY) Allergy/AdvReac Type Severity Reaction Status Date / Time aspirin Allergy Hives Verified 03/08/25 15:55 dicyclomine Allergy Itching Verified 03/08/25 15:55 ibuprofen Allergy Hives Verified 03/08/25 15:55 ketorolac tromethamine (From Allergy Angioedema Verified 03/08/25 15:55 Toradol) nut - unspecified Allergy Hives Verified 03/08/25 15:55 Penicillins (PCN) Allergy Hives Verified 03/08/25 15:55 tramadol HCl (From Ultram) Allergy Angioedema Verified 03/08/25 15:55 Family History Brother Myocardial infarction Asthma Mental disorder Psychiatric care Suicide attempt Father Colon cancer Brother Mental disorder Aunt Parkinson disease Sister Breast cancer Cervical cancer Ovarian cancer Sister Cervical cancer Ovarian cancer Mother Cancer leukemia History of blood clots Hypertension Surgical History History of cardiac catheterization History of lumpectomy of left breast History of esophagogastroduodenoscopy (EGD) History of cholecystectomy S/P lumpectomy, left breast History of left breast biopsy History of hysterectomy Hx of appendectomy History of left heart catheterization (LHC) (~04/22/21) Social History household members: family current occupational status: disabled Smoking Status: Former smoker quit date: 01/21/16 pack-years: 32 Electronic Cigarette Use: not used second hand exposure: Yes alcohol intake: never substance use type: does not use do you feel safe at home: No ROS ROS Narrative Admission Review of Systems: CONSTITUTIONAL: No weight loss, fever, chills, + weakness or fatigue. HEENT: + Lightheadedness, dizziness. Eyes: No visual loss, blurred vision, double vision or yellow sclerae. Ears, Nose, Throat: No hearing loss, sneezing, congestion, runny nose or sore throat. SKIN: No rash or itching, lesions, wounds. CARDIOVASCULAR: + Chronic edema, syncopal event, lightheadedness/dizziness. No chest pain, chest pressure or chest discomfort, palpitations, orthopnea. RESPIRATORY: + Chronic intermittent dyspnea, worse with exertion. No recent marked cough, productive sputum, wheezing hemoptysis. GASTROINTESTINAL: No anorexia, nausea, vomiting or diarrhea, abdominal pain, melena, BRBPR. GENITOURINARY: + Chronic urinary frequency. No dysuria, urgency or retention. NEUROLOGICAL: + Intermittent headaches, dizziness, lightheadedness, syncopal event. No paralysis, ataxia, numbness or tingling in the extremities, focal weakness, change in bowel or bladder control, seizure. MUSCULOSKELETAL: + muscle, back pain, joint pain or stiffness. HEMATOLOGIC: + Chronic anemia, easy bleeding/bruising. LYMPHATICS: No enlarged nodes. No history of splenectomy. PSYCHIATRIC: + History of anxiety and depression. ENDOCRINOLOGIC: No reports of sweating, cold or heat intolerance. No polyuria or polydipsia. ALLERGIES: + History of hives and angioedema. Physical Exam Const alert, oriented x3 and no apparent distress Constitutional Narrative: class III obesity HEENT normocephalic, head/scalp atraumatic, moist oral mucous membranes and oropharynx normal Eyes PERRL Neck supple Lymph Lymphatic: no lymphedema noted Resp Resp Narrative: mildly diminished breath sounds bibasally, no wheezes or crackles. On 2L of oxygen by nasal canula Cardio regular rate, regular rhythm, S1 normal heart sound, S2 normal heart sound and no murmurs GI normal to inspection, nondistended, normoactive bowel sounds, soft to palpation and non-tender Extremity normal capillary refill, no clubbing, cyanosis or edema and no calf tenderness General Extremity: no tenderness to palpation of joints or extremities Skin General Skin Exam: no breakdown Neuro CN's II-XII intact bilaterally, no focal motor deficits and no sensory deficits noted Motor Exam: general weakness Psych thought process normal and cooperative Mood & Affect: flat affect Lab / Micro Data 03/12/25 04:49 03/12/25 04:49 Labs: Laboratory Results - last 24 hr 03/11/25 15:49: POC Glucose 112 H 03/11/25 22:49: POC Glucose 113 H 03/12/25 04:49: WBC 6.4, RBC 3.07 L, Hgb 7.5 L, Hct 24.4 L, MCV 79.5 L, MCH 24.4 L, MCHC 30.7 L, RDW Std Deviation 42.8, RDW Coeff of Immanuel 14.8 H, Plt Count 195, MPV 11.1, Immature Gran % (Auto) 0.300, Neut % (Auto) 57.3, Lymph % (Auto) 29.7, Hutchinson % (Auto) 8.1, Eos % (Auto) 4.1, Baso % (Auto) 0.5, Absolute Neuts (auto) 3.7, Absolute Lymphs (auto) 1.90, Nucleated RBC % 0, Sodium 139, Potassium 3.3, Chloride 102, Carbon Dioxide 25.4, Anion Gap 11, BUN 16, Creatinine 0.71, Estim Creat Clear Calc 111.33, Est GFR (MDRD) Non-Af 98, BUN/Creatinine Ratio 22.5 H, Glucose 116 H, Calcium 8.7 Assessment & Plan Assessment/Plan (1) Anemia: PLAN: 59-year-old with history of COPD, obesity, Parkinson disease, acute on chronic anemia and PE on anticoagulation. Patient has not had any other signs of lower GI bleeding. She does have hemorrhoidal disease and history of diverticular disease. She did undergo colonoscopy by myself approximately 2 and half years ago and was discovered to have diverticular disease. He had upper endoscopy also did not show any abnormalities that she had a capsule endoscopy. She has a chronic anemia and chronic disease. He is okay to go back on anticoagulation at this time and states her hemoglobin seems to be stable and complete the rest of the workup as outpatient. Charges/Coding Visit Charges Inpatient E&M: 78349 Init Hosp L3
[2025-03-12] MEDS: 0.9% Normal Saline (250mL Bag) 250 ML 15 ML IV (22:05)
[2025-03-12 22:53] LABS: Hematocrit 25.2 % (37-47); Hemoglobin 7.8 g/dL (12.0-15.0)
[2025-03-13] VITALS (17 sets, daily range): BP systolic 137–163; BP diastolic 83–106; PULSE 66–97; RESP 14–20; TEMP 36.3–37.4; O2SAT 95–100; BMI 52.2
[2025-03-13 04:24] LABS: Hematocrit 25.9 % (37-47); Hemoglobin 8.1 g/dL (12.0-15.0); Immature Granulocytes Count 0.020 X10^3/uL (0.0-0.0); Mean Corp Hgb Conc 31.3 g/dL (32-36); Mean Corpuscular Volume 80.4 fL (81-99); Mean Platelet Vol. 10.3 fl (6.2-12.0); NRBC Flagged by Analyzer 0 % (0-5); Platelet Count 188 K/mm3 (150-450); RBC Distribution Width CV 15.1 % (11.6-14.6); RBC Distribution Width SD 44.1 fl (35.1-43.9); Red Blood Count 3.22 M/mm3 (4.2-5.4); White Blood Count 7.1 K/mm3 (4.4-11.0)
[2025-03-13 04:33] LABS: Prothrombin Time (Protime)PT. 13.5 SECONDS (11.7-14.9)
[2025-03-13 04:34] LABS: Partial Thromboplast Time 29.6 Seconds (24.1-36.2)
[2025-03-13 05:22] LABS: AST(SGOT) 26 U/L (<=31); Alanine Aminotransfer ALT/SGPT 16 U/L (<=34); Albumin, Serum 3.5 g/dL (3.5-5.0); Alkaline Phosphatase 109 U/L (35-104); Anion Gap 12 (5-15); BUN 14 mg/dL (4-19); BUN/Creat Ratio 18.9 RATIO (10-20); Bilirubin, Direct 0.12 mg/dL (0.00-0.30); Calcium,Total 8.8 mg/dL (7.6-11.0); Carbon Dioxide 25.4 mmol/L (21.0-32.0); Chloride 103 mmol/L (98-108); Estimated Creatinine Clearance 108.72 ml/min (50-250); Globulin 3.1 g/dL (2.2-4.2); Glucose 91 mg/dL (70-99); Potassium 3.4 mmol/L (3.3-5.1)
--- NOTE | 2025-03-13 05:55 | EKG12_ITS ---
Test Reason : AM EKG Blood Pressure : */* mmHG Vent. Rate : 86 BPM Atrial Rate : 86 BPM P-R Int : 154 ms QRS Dur : 106 ms QT Int : 406 ms P-R-T Axes : 23 0 23 degrees QTcB Int : 485 ms Normal sinus rhythm Inferior infarct (cited on or before 08-Mar-2025) Abnormal ECG When compared with ECG of 08-Mar-2025 16:13, No significant change was found Confirmed by NNEKA BATISTA, HUNTER ([id number]), web editor PANDA LAWTON ([id number]) on 03/16/2025 6:32:58 AM Referred By: LEXA Confirmed By: HUNTER EARLY MD
--- NOTE | 2025-03-13 09:40 | PN_ITS ---
Subjective Subjective Patient seen and examined. She had no active complaints and had an uneventful night. Review of systems is otherwise negative. GI is planning on EGD this morning. Her Hb is 8.1 today. Objective Data Objective Data Vital Signs: Vital Signs Temp Pulse Resp BP Pulse Ox O2 Del Method O2 Flow Rate 98.2 F 84 17 151/94 H 95 Nasal Cannula 2 03/13/25 07:47 03/13/25 07:47 03/13/25 07:47 03/13/25 07:47 03/13/25 07:47 03/13/25 07:59 03/13/25 08:51 FiO2 24 03/11/25 03:00 Oxygen Flow Rate (L/min) 2 Oxygen Delivery Method Nasal Cannula Weight: 285 lb 7.978 oz Body Mass Index (BMI) 52.2 Intake & Output: Intake and Output for Last 24 Hours 03/11/25 03/12/25 03/13/25 23:59 23:59 23:59 Intake Total 970 / 970 767.25 / 767.25 400 / 400 Output Total 1225 / 1225 Balance -255 / -255 767.25 / 767.25 400 / 400 Lab / Micro Data 03/13/25 04:10 03/13/25 04:10 Labs: Laboratory Results - last 24 hr 03/12/25 22:30: Hgb 7.8 L, Hct 25.2 L, Blood Type A POSITIVE, Antibody Screen NEGATIVE, Crossmatch See Detail 03/13/25 00:44: POC Glucose 110 H 03/13/25 04:10: WBC 7.1, RBC 3.22 L, Hgb 8.1 L, Hct 25.9 L, MCV 80.4 L, MCH 25.2 L, MCHC 31.3 L, RDW Std Deviation 44.1 H, RDW Coeff of Immanuel 15.1 H, Plt Count 188, MPV 10.3, Immature Gran % (Auto) 0.300, Neut % (Auto) 55.1, Lymph % (Auto) 31.8, Pershing % (Auto) 7.5, Eos % (Auto) 4.7, Baso % (Auto) 0.6, Absolute Neuts (auto) 3.9, Absolute Lymphs (auto) 2.25, Nucleated RBC % 0, PT 13.5, INR 1.0, APTT 29.6, Sodium 140, Potassium 3.4, Chloride 103, Carbon Dioxide 25.4, Anion Gap 12, BUN 14, Creatinine 0.72, Estim Creat Clear Calc 108.72, Est GFR (MDRD) Non-Af 96, BUN/Creatinine Ratio 18.9, Glucose 91, Calcium 8.8, Total Bilirubin 0.23, Direct Bilirubin 0.12, AST 26, ALT 16, Alkaline Phosphatase 109 H, Total Protein 6.6, Albumin 3.5, Globulin 3.1 03/13/25 05:51: POC Glucose 104 Micro: Microbiology 03/11/25 08:40 Stool Stool Occult Blood (KAELA) - Final Occult Blood Positive 03/08/25 22:15 Sputum, Induced/Lukens Gram Stain - Final 03/08/25 22:15 Sputum, Induced/Lukens Respiratory Culture - Final Streptococcus agalactiae (B) 03/08/25 16:07 Blood Culture (Wb) - Anticubital Left Blood Culture - Preliminary No growth in 48 hours. 03/08/25 16:00 Blood Culture (Wb) - Anticubital Left Blood Culture - Preliminary No growth in 48 hours. 03/08/25 16:50 Urine, Clean Catch Urine Culture - Final Presumptive E. coli 03/08/25 22:15 Mucosa - Nasopharyngeal Respiratory Panel (PCR) - Final 03/08/25 16:07 Mucosa - Nose SARS-CoV-2, Influenza & RSV (PCR) - Final Physical Exam Const alert, oriented x3 and no apparent distress Constitutional Narrative: class III obesity HEENT normocephalic, head/scalp atraumatic, moist oral mucous membranes and oropharynx normal Eyes PERRL Neck supple Lymph Lymphatic: no lymphedema noted Resp Resp Narrative: mildly diminished breath sounds bibasally, no wheezes or crackles. Remains on 2L of oxygen by nasal canula Cardio regular rate, regular rhythm, S1 normal heart sound, S2 normal heart sound and no murmurs GI normal to inspection, nondistended, normoactive bowel sounds, soft to palpation and non-tender Extremity normal capillary refill, no clubbing, cyanosis or edema and no calf tenderness General Extremity: no tenderness to palpation of joints or extremities Skin General Skin Exam: no breakdown Neuro CN's II-XII intact bilaterally, no focal motor deficits and no sensory deficits noted Motor Exam: general weakness Psych thought process normal and cooperative Appearance: appropriate Assessment & Plan Assessment/Plan (1) Acute hypercapnic respiratory failure: (2) UTI (urinary tract infection): PLAN: Plan #Acute on chronic hypoxic and hypercapnic respiratory failure * Patient was admitted with a complaint of altered mental status and shortness of breath. ABG done showed hypercapnic respiratory acidosis. She was unable to tolerate BiPAP so was intubated. * She is on lorazepam and methadone as well as oxycodone at home. She also did not wear her BiPAP the night before admission so this together with her medications made her more lethargic. * extubated on 03/10/2025 and is on 3L of oxygen. * 2D echo showed EF of 50% with no regional wall motion abnormalities noted and mild global right ventricular systolic dysfunction * Critical care on board. Titrate oxygen to maintain saturation above 90%. * Chest x-ray on admission did show mild cardiomegaly with diffuse pulmonary vascular congestion as well as left lung base consolidation. * sputum cultures growing Beta streptococcus (rare growth) * #Acute metabolic encephalopathy due to acute on chronic hypoxic and hypercapnic respiratory failure and UTI * Management as above. * on IV ceftriaxone for UTI. COmplete a 5 day course. * resolved #UTI: Urinalysis showed 4+ bacteria. urine cultures growing E coli. Currently on IV ceftriaxone. #HYpotension * resolved. * #LEIGH ANN: resolved. #Acute on chronic anemia * Hb today is 8.1 * on eliquis. She says she does have hemorrhoids which occasionally bleed. * Her baseline Hb is ~ 8-9. * iron profile does show iron deficiency anemia which is chronic * eliquis held. GI consulted. FOr EGD today per GI. * * #History of seizure disorder: On lacosamide and Keppra #Parkinson's disease: On Sinemet. * follows Dr Castro and per office note on 01/08/2025. 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 Complicates acute care, expected recovery and prognosis #DVT Prophylaxis: Already on Eliquis. Hold eliquis o/a of positive FOBT. SCDs Charges/Coding Visit Charges Inpatient E&M: 88881 Subs Hosp L2
[2025-03-13] MEDS: Pantoprazole Sodium 40 MG in 0.9% Normal Saline (100mL MB+) 100 ML 300 MG IV ×2 (10:03→20:22)
[2025-03-13] MEDS: Senna/Docusate Sodium 1 Tablet 2 TABLET PO ×2 (10:04→20:27)
--- NOTE | 2025-03-13 14:55 | PRE.ANES_ITS ---
ASA Classification* ASA Classification ASA Classification: 3 and E Assessment & Plan Anesthesia* Anesthesia Assessment Anesthesia Assessment: Discussed sedation and/or anesthesia options, risks, benefits, and alternatives with patient/parents/legal guardian/POA. Questions invited. The patient/parents/legal guardian/POA seems to understand and agrees to proceed with anesthesia plan. Reviewed the physical assessment, medical history, allergy history and patient home medications list prior to surgery/procedure/anesthetic and documented any changes. Performed airway and anesthesia risk assessments. Anesthesia Type Anesthesia Type: MAC History Source History Obtained from:: Patient and Chart Anesthesia Focused Assessment* Temperature: 97.8 F Pulse Rate: 87 Blood Pressure: 157/106 Respiratory Rate: 15 Pulse Ox: 96 Oxygen Delivery Method: Nasal Cannula Oxygen Flow Rate (L/min): 2 (patient is on 3L oxygen at home. ) Fraction of Inspired Oxygen (FIO2): 24 Airway Assessment Mouth opens: >3 cm Mallampati Score: IV Teeth Condition: Chipped/Broken (all bottom teeth) and Missing (all uppers) Neck Range of motion (ROM): Full ROM Labs Anesthesia Preop lab: CBC WBC 7.1 K/mm3 (4.4-11.0) 03/13/25 04:10 03/13/25 RBC 3.22 M/mm3 (4.2-5.4) L 03/13/25 04:10 03/13/25 Hgb 8.1 g/dL (12.0-15.0) L 03/13/25 04:10 03/13/25 Hct 25.9 % (37-47) L 03/13/25 04:10 03/13/25 Plt Count 188 K/mm3 (150-450) 03/13/25 04:10 03/13/25 CHEMISTRY Potassium 3.4 mmol/L (3.3-5.1) 03/13/25 04:10 03/13/25 Sodium 140 mmol/L (133-145) 03/13/25 04:10 03/13/25 Magnesium 2.0 mg/dL (1.5-2.2) 03/09/25 03:29 03/09/25 Phosphorus 4.1 mg/dL (2.5-4.9) 08/15/24 04:51 08/15/24 BUN 14 mg/dL (4-19) 03/13/25 04:10 03/13/25 Creatinine 0.72 mg/dL (0.70-1.20) 03/13/25 04:10 03/13/25 Glucose 91 mg/dL (70-99) 03/13/25 04:10 03/13/25 POC Glucose 97 mg/dL (74-106) 03/13/25 11:43 03/13/25 TSH 2.880 uIU/mL (0.300-4.200) 12/29/24 09:46 06/0 04/16 COAG PT 13.5 SECONDS (11.7-14.9) 03/13/25 04:10 Pre-Assessment Diagnosis/Proposed Procedure Planned Operative Procedure(s): EGD Anesthesia History 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 When Was Last Pacemaker Check QUESTION #4 FULL TEXT: You/Your Family Experience fever (hyperthermia) with Anesthesia Any additional information?: Yes Hx Hospitalization: Yes (12/07/2024 ICU for seizures that they couldnt stop) Any Problems With Anesthesia: No Cholinesterase deficiency: No You/your family experience fever (hyperthermia) with anesthesia: No Recent Exposure to Contagious Disease: No Does patient have nerve stimulator: No Patient instructed to have device shut off: No --Does patient have Pacemaker or ICD?: No Last Oral Intake Last Oral intake: Last Oral Intake NPO since Meds taken in AM with sips of water? 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 machine operator Female HX of Motion Sickness HX of N/V After Surgery Non-Smoker Duration of Surgery greater than 60 minutes Number of Risk Factors PONV Score Any additional information?: Yes Female: Yes HX of Motion Sickness: Yes HX of N/V After Surgery: Yes Non-Smoker: No Duration of Surgery greater than 60 minutes: No Number of Risk Factors: 3 PONV Score: Moderate Risk Height & Weight Height & Weight: Anesthesia: Height & Weight Height 5 ft 2 in 03/11/25 09:50 Weight: 129.5 kg 03/13/25 05:07 Body Mass Index (BMI) 52.2 03/13/25 05:07 Respiratory Assessment Respiratory Assessment - hoop coiling machine operator: Respiratory Tract Infection Hx - hoop coiling machine operator Hx Respiratory Tract Infection No 11/22/21 15:10 Any additional information?: No STOP Sleep Apnea STOP Sleep Apnea - hoop coiling machine operator: STOP Sleep Apnea - hoop coiling machine operator Hx Hypertension Yes 03/09/25 11:06 Hx Sleep Apnea Yes 03/08/25 21:42 CPAP No 03/08/25 21:42 BIPAP Yes 03/08/25 21:42 Do you snore loudly (louder than talking or can be heard Do you often feel tired/ fatigued/ sleepy during daytime? Has anyone observed you stop breathing during sleep? STOP Results Positive 03/08/25 21:42 QUESTION #5 FULL TEXT : Do you snore loudly (louder than talking or can be heard through closed doors)? 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 Specify any problems Hx of Preganancy in last 3 Months Nurse Filling Out Transfusion & Questions: Date: Time: Patient unable to answer at Yes 03/08/25 21:42 this time (ie. confused, unrespo Any additional information?: Yes Hx of Blood Transfusion: Yes Hx of Transfusion in last 3 Months: Yes Date of Last Transfusion (if within last 3 months): 03/12/2025 Ever experience any problems with transfusion(s)?: No Hx of Preganancy in last 3 Months: N/A /Reproduction History /Reproductive History - hoop coiling machine operator: /Reproductive Hx- hoop coiling machine operator Hx Now Gestational Age (in weeks): EDC: Hx Hx Para Hx Section SAB No 11/22/21 15:10 Any additional information?: No Active Medications Active Medications: Current Medications Generic Name Dose Route Start Last Admin Trade Name Freq PRN Reason Stop Dose Admin Acetaminophen 650 mg 03/11/25 04:29 03/11/25 15:48 Acetaminophen 325 Mg Tablet PO 650 mg Q4H PRN PRN Administration Pain 1-10 or Fever Al Hydroxide/Mg Hydroxide 15 ml 03/11/25 05:10 Mag Hydrox/Al Hydrox/Simeth 30 Ml Udc PO Q4H PRN PRN DYSPEPSIA/INDIGESTION Albuterol Sulfate 2.5 mg 03/08/25 21:42 Albuterol 2.5 Mg/3 Ml Vial.Neb. INHALATION Q2H PRN PRN SOB &/OR WHEEZING Apixaban 5 mg 03/08/25 22:00 03/11/25 08:55 Apixaban 5 Mg Tablet PO 5 mg BID LOULOU Administration Atorvastatin Calcium 20 mg 03/08/25 22:00 03/12/25 22:05 Atorvastatin Calcium 20 Mg Tablet PO 20 mg QHS LOULOU Administration Carbidopa/Levodopa 2 tablet 03/08/25 22:00 03/13/25 11:45 Carbidopa/Levodopa 25/100 Tablet PO 2 tablet ACHS LOULOU Administration Chlorhexidine Gluconate 1 each 03/09/25 10:00 03/13/25 10:12 Chlorhexidine Gluc 2% Cloth 1 Each Towelette TOPICAL Not Given DAILY LOULOU Ceftriaxone Sodium 1 gm in 50 mls @ 100 mls/hr 03/09/25 22:00 03/12/25 22:35 Rocephin IV Infused 2200 LOULOU Infusion Sodium Chloride 250 mls @ 15 mls/hr 03/08/25 22:05 03/13/25 06:00 IV 0 mls/hr .[id number] PRN Infusion Saline Flush Sodium Chloride 250 mls @ 15 mls/hr 03/08/25 22:05 IV .[id number] PRN Additional IVPB Infusion Pantoprazole Sodium 40 mg/ 100 mls @ 300 mls/hr 03/11/25 22:00 03/13/25 10:37 Sodium Chloride IV Infused Q12 LOULOU Infusion Lacosamide 200 mg 03/08/25 22:00 03/13/25 10:05 Lacosamide 100 Mg Tablet PO 200 mg BID LOULOU Administration Levetiracetam 750 mg 03/08/25 22:00 03/13/25 10:04 Levetiracetam 750 Mg Tablet PO 750 mg BID LOULOU Administration Lorazepam 0.5 mg 03/09/25 01:00 03/13/25 13:11 Lorazepam 0.5 Mg Tablet PO 0.5 mg 0100,0700,1300,1900 LOULOU Administration Mirtazapine 7.5 mg 03/08/25 22:00 03/12/25 22:04 Mirtazapine 15 Mg Tablet PO 7.5 mg QHS LOULOU Administration Ondansetron HCl 4 mg 03/08/25 21:42 Ondansetron 4 Mg/2 Ml Vial IV Q8H PRN PRN NAUSEA/VOMITING Oxycodone HCl 15 mg 03/11/25 16:26 03/12/25 22:03 Oxycodone 5 Mg Tablet PO 15 mg Q6H PRN PRN Administration Pain Score 6-10 Senna/Docusate Sodium 2 tablet 03/08/25 22:00 03/13/25 10:04 Senna/Docusate Sodium 1 Tablet PO 2 tablet BID LOULOU Administration Sodium Chloride 10 - 40 ml 03/08/25 22:05 03/11/25 22:36 0.9% Saline Lock 10 Ml Syringe IV 10 ml UD PRN Administration SALINE FLUSH Venlafaxine HCl 150 mg 03/09/25 10:00 03/13/25 10:04 Venlafaxine Xr 150 Mg Capsule PO 150 mg DAILY LOULOU Administration PFSH Medical History H/O long-term (current) use of anticoagulants Falls frequently FTT (failure to thrive) in adult Chronic anemia Compression fracture of T6 vertebra Compression fracture of T5 vertebra Cancer CPAP (continuous positive airway pressure) dependence Sleep apnea Coronary artery disease Myocardial infarct DVT (deep venous thrombosis) Seizures DVT (deep vein thrombosis) in Cardiopulmonary arrest with successful resuscitation Wears dentures Wears glasses Back pain TIA (transient ischemic attack) GERD (gastroesophageal reflux disease) BiPAP (biphasic positive airway pressure) dependence Former smoker On home oxygen therapy Cardiology follow-up encounter Hx of echocardiogram Hx of cardiovascular stress test Essential hypertension MSSA (methicillin susceptible Staphylococcus aureus) pneumonia Restrictive lung disease Chronic narcotic dependence Pulmonary embolism Diastolic dysfunction Syncope and collapse STEPHANIE (obstructive sleep apnea) HLD (hyperlipidemia) Anxiety and depression Morbid obesity Bilateral peripheral pulmonary emboli Hypothyroidism COPD (chronic obstructive pulmonary disease) Home Medications ?Medication ?Instructions ?Recorded ?Last Taken ?Type compr.stocking,thigh,reg,x-lrg #24 ea 01/15/24 Unknown Rx miscellaneous medical supply 1 ea miscellaneous DAILY debility 01/16/24 Unknown Rx #1 ea miscellaneous medical supply 1 ea miscellaneous DAILY #1 ea 04/29/24 Unknown Rx miscellaneous medical supply 1 ea miscellaneous DAILY #1 ea 04/29/24 Unknown Rx rosuvastatin 10 mg tablet 10 mg PO DAILY cholesterol 1 month 06/23/24 Unknown Rx #30 tabs albuterol sulfate 90 mcg/actuation 2 puff inhalation Q 6H PRN 06/26/24 Unknown Rx aerosol inhaler shortness of breath or wheez ing #8.5 grams miscellaneous medical supply #1 ea 07/08/24 Unknown Rx ondansetron HCl 4 mg tablet 4 mg PO Q8H PRN nausea and 07/08/24 Unknown Rx vomiting #30 tabs miscellaneous medical supply #1 ea 07/29/24 Unknown Rx naloxone 4 mg/actuation nasal spray 1 spray intranasal Q2M PRN opioid 08/12/24 Unknown History overdose sennosides 8.6 mg-docusate sodium 1 tab-cap PO DAILY 0 08/12/24 Unknown History 50 mg tablet (Senexon-S) acetaminophen 325 mg tablet 650 mg (2 x 325 mg) PO Q4H PRN PRN 08/15/24 Unknown Rx Fever, pain 1-05/01 #0 tabs lorazepam 1 mg tablet 1 mg PO 0100,0700,1300,1900 #0 tabs 08/15/24 Unknown Rx methadone 10 mg tablet 10 mg PO Q8 #0 tabs 08/15/24 Unknown Rx oxycodone 15 mg tablet 15 mg PO Q4H PRN pain 3 days #10 08/15/24 Unknown Rx tabs mupirocin 2 % topical ointment 1 applic topical BID #2 2 grams 08/28/24 Unknown Rx polyethylene glycol 3350 17 4 g PO DAILY stool softene r #119 10/29/24 Unknown Rx gram/dose oral powder (Miralax) grams metoprolol succinate 100 mg 50 mg PO DAILY PRN blood p ressure 11/14/24 Unknown History tablet,extended release 24 hr furosemide 20 mg tablet 30 mg (1.5 x 20 mg) PO DAILY 12/17/24 Unknown Rx diuretic #45 TABLETS venlafaxine 150 mg 150 mg PO DAILY depression # 90 caps 12/29/24 Unknown Rx capsule,extended release 24 hr (Effexor XR) cholecalciferol (vitamin D3) 1,250 1,250 mcg PO QWEEK supplement #8 12/30/24 Unknown Rx mcg (50,000 unit) capsule caps mirtazapine 7.5 mg tablet 7.5 mg PO QHS sleep #30 tabs 01/06/25 Unknown Rx carbidopa 25 mg-levodopa 100 mg 2 tab PO .QID #240 tab s 01/08/25 Unknown Rx tablet lacosamide 200 mg tablet 200 mg PO BID #60 tabs 01/08 Unknown Rx levetiracetam 750 mg tablet 750 mg PO BID seizures #60 tabs 01/08/25 Unknown Rx apixaban 5 mg tablet (Eliquis) 5 mg PO BID blood thinn er #60 tabs 03/02/25 Unknown Rx losartan 100 mg tablet (Cozaar) 100 mg PO DAILY blood pressure #90 03/05/25 Unknown Rx tabs omeprazole 20 mg capsule,delayed 20 mg PO DAILY acid r eflux #30 caps 03/05/25 Unknown Rx release OXYGEN - Supplemental ([facility] 03/12/25 Unknown History INFORMATIONAL USE ONLY) Allergy/AdvReac Type Severity Reaction Status Date / Time aspirin Allergy Hives Verified 03/08/25 15:55 dicyclomine Allergy Itching Verified 03/08/25 15:55 ibuprofen Allergy Hives Verified 03/08/25 15:55 ketorolac tromethamine (From Allergy Angioedema Verified 03/08/25 15:55 Toradol) nut - unspecified Allergy Hives Verified 03/08/25 15:55 Penicillins (PCN) Allergy Hives Verified 03/08/25 15:55 tramadol HCl (From Ultram) Allergy Angioedema Verified 03/08/25 15:55 Family History Brother Myocardial infarction Asthma Mental disorder Psychiatric care Suicide attempt Father Colon cancer Brother Mental disorder Aunt Parkinson disease Sister Breast cancer Cervical cancer Ovarian cancer Sister Cervical cancer Ovarian cancer Mother Cancer leukemia History of blood clots Hypertension Surgical History History of cardiac catheterization History of lumpectomy of left breast History of esophagogastroduodenoscopy (EGD) History of cholecystectomy S/P lumpectomy, left breast History of left breast biopsy History of hysterectomy Hx of appendectomy History of left heart catheterization (LHC) (~04/22/21) Social History household members: family current occupational status: disabled Smoking Status: Former smoker quit date: 01/21/16 pack-years: 32 Electronic Cigarette Use: not used second hand exposure: Yes alcohol intake: never substance use type: does not use do you feel safe at home: No Prior Cardiac Testing/Procedures Prior Cardiac Testing/Procedures: Echocardiogram (03/09/25e estimated ejection fraction is 50 %. The right atrium is mildly enlarged. Mildly increased RV wall thickness Mild global right ventricular systolic dysfunction. Left ventricular systolic function is normal. No regional wall motion abnormalities noted.) Addt'l Information Additional Findings: EKG 03/08/25 Normal sinus rhythm Inferior infarct , age undetermined QTcB >= 480 msec Abnormal ECG Review of Systems (Anesthesia) ROS Narrative System reviewed and no additional complaints, except as documented.
--- NOTE | 2025-03-13 14:58 | CASEMGMT ---
RN CM updated by [facility] that start of care has been changed to Sunday. RN CM updated discharge plan. RN CM updated patient. Green sheet placed on chart.
[2025-03-13] MEDS: Lactated Ringers 1,000 ML 15 ML IV (15:15)
--- NOTE | 2025-03-13 15:23 | PCM.PN.BLA ---
Progress Note Patient received 1 unit of packed red blood cells overnight. No sign of bleeding today. She has been off anticoagulation. Physical Exam Const alert, oriented x3, no apparent distress and healthy appearing General Appearance: cooperative GI normal to inspection, nondistended, normoactive bowel sounds, soft to palpation, non-tender and non-distended Percussion: normal to percussion Rectal Exam: deferred Assessment & Plan Assessment/Plan (1) Anemia: PLAN: 59-year-old with history of COPD, obesity, Parkinson disease, acute on chronic anemia and PE on anticoagulation. Patient has not had any other signs of lower GI bleeding. She does have hemorrhoidal disease and history of diverticular disease. She did undergo colonoscopy by myself approximately 2 and half years ago and was discovered to have diverticular disease. He had upper endoscopy also did not show any abnormalities that she had a capsule endoscopy. She has a chronic anemia and chronic disease. He is okay to go back on anticoagulation at this time and states her hemoglobin seems to be stable and complete the rest of the workup as outpatient. PLAN: Plan 03/13/2025-patient will undergo an upper endoscopy to evaluate upper GI tract for acute blood loss anemia. Patient should be able to go back on anticoagulation after the procedure. She was explained alternatives, risk and benefits include not withstanding bleeding, infection, sepsis, perforation, need for sudden . She will have an ASA of 3. Visit Charges Inpatient E&M: 96330 Subs Hosp L3
[2025-03-13] MEDS: Lactated Ringers 1,000 ML 1000 ML IV (15:36)
[2025-03-13] MEDS: Lidocaine 1% (5 ml sdv) 5 ML Vial 8 ML IV (15:44)
--- NOTE | 2025-03-13 15:55 | OP.PROVAT_ITS ---
03/13/2025 Ysabel Ruffin Md Re : Upper GI endoscopy procedure for Felisha Perrin Dear Laly This procedure was performed on Thursday, March 13, 2025. My impressions and recommendations are as follows: Impressions : - Normal esophagus. - Oozing gastric ulcers with pigmented material. Treated with a heater probe. - No specimens collected. Recommendations : - Discharge patient to home. - Resume regular diet. - Continue present medications. - Use Protonix (pantoprazole) 40 mg PO BID for 1 month. - Use sucralfate tablets 1 gram PO QID for 2 weeks. My findings are described in the full procedure note, which is enclosed. If I can be of further assistance, please feel free to contact me at . Sincerely, Ajay Friend, 03/13/2025 3:55:05 PM This report has been signed electronically.
--- NOTE | 2025-03-13 15:55 | OP.EGD_ITS ---
Patient Name: Felisha Perrin Procedure Date: 03/13/2025 3:26 PM Date of : 1965 Age: 59 Procedure: Upper GI endoscopy Indications: Acute post hemorrhagic anemia, Iron deficiency anemia, Recent gastrointestinal bleeding Providers: Ajay Millard DO Medicines: Monitored Anesthesia Care Patient Profile: This is a 59 year old female. Refer to note in patient chart for documentation of history and physical. Patient has symptoms. Complications: No immediate complications. Procedure: Pre-Anesthesia Assessment: - Prior to the procedure, a History and Physical was performed, and patient medications and allergies were reviewed. The patient is competent. The risks and benefits of the procedure and the sedation options and risks were discussed with the patient. All questions were answered and informed consent was obtained. Patient identification and proposed procedure were verified by the physician in the pre-procedure area. Mental Status Examination: alert and oriented. Airway Examination: normal oropharyngeal airway and neck mobility. Respiratory Examination: clear to auscultation. CV Examination: normal. ASA Grade Assessment: II - A patient with mild systemic disease. After reviewing the risks and benefits, the patient was deemed in satisfactory condition to undergo the procedure. The anesthesia plan was to use monitored anesthesia care (MAC). Immediately prior to administration of medications, the patient was re-assessed for adequacy to receive sedatives. The heart rate, respiratory rate, oxygen saturations, blood pressure, adequacy of pulmonary ventilation, and response to care were monitored throughout the procedure. The physical status of the patient was re-assessed after the procedure. After obtaining informed consent, the endoscope was passed under direct vision. Throughout the procedure, the patient's blood pressure, pulse, and oxygen saturations were monitored continuously. The Endoscope was introduced through the mouth, and advanced to the fourth part of the duodenum. Small bowel enteroscopy was deemed necessary. The upper GI endoscopy was accomplished without difficulty. The patient tolerated the procedure well. Scope In: 3:44:16 PM Scope Out: 3:47:51 PM Total Procedure Duration Time 0 hours 3 minutes 35 seconds Findings: The examined esophagus was normal. Six oozing linear gastric ulcers with pigmented material were found in the cardia, in the gastric body and in the gastric antrum. The largest lesion was 5 mm in largest dimension. Coagulation for hemostasis using heater probe was successful. Estimated blood loss was minimal. The exam of the duodenum was otherwise normal. Impression: - Normal esophagus. - Oozing gastric ulcers with pigmented material. Treated with a heater probe. - No specimens collected. Recommendation: - Discharge patient to home. - Resume regular diet. - Continue present medications. - Use Protonix (pantoprazole) 40 mg PO BID for 1 month. - Use sucralfate tablets 1 gram PO QID for 2 weeks. Procedure Code(s): --- Professional --- 78762, Small intestinal endoscopy, enteroscopy beyond second portion of duodenum, not including ileum; with control of bleeding (eg, injection, bipolar cautery, unipolar cautery, laser, heater probe, stapler, plasma dynamic etching processor) CPT copyright 2021 [employer]. All rights reserved. The codes documented in this report are preliminary and upon missile facilities repairer review may be revised to meet current compliance requirements. Ajay Millard DO 03/13/2025 3:55:05 PM This report has been signed electronically. Number of Addenda: 0 Note Initiated On: 03/13/2025 3:26 PM
--- NOTE | 2025-03-13 15:55 | PCM.POST.ANE ---
Anesthesia: Postop Eval I Current Vital Signs Temperature: 97.3 F Pulse Rate: 77 Blood Pressure: 160/91 Respiratory Rate: 20 Pulse Ox: 98 Oxygen Delivery Method: Nasal Cannula Oxygen Flow Rate (L/min): 2 Assessment Airway patent: Yes Spontaneous unlabored respirations: Yes Mental status: Awake and Calm nausea: No Vomiting: No Anesthesia Complication: No Fluid Hydration Crystalloid volume administer (ml): 100 Total IV fluid infused: 100 Progress Note Anesthesia document: Postop Eval 1 completed: Yes
--- NOTE | 2025-03-13 16:18 | POSTOPAN2_ITS ---
Anesthesia Postop Eval I Sum Postop Eval Completion status Anesthesia document: Postop Eval 1 completed: Yes Anesthesia Postop Eval I Summary Anesthesia Postop Eval I Summary: Anesthesia Postop Eval I: Assessment Summary Airway patent Yes 03/13/25 15:56 LIEUTENANT SHIFT [email or web address] Spontaneous unlabored Yes 03/13/25 15:56 LIEUTENANT SHIFT [email or web address] respirations Mental status Awake,Calm 03/13/25 15:56 LIEUTENANT SHIFT [email or web address] nausea No 03/13/25 15:56 LIEUTENANT SHIFT [email or web address] Vomiting No 03/13/25 15:56 LIEUTENANT SHIFT [email or web address] Anesthesia Postop Eval I: Fluid Summary Crystalloid volume administer 100 03/13/25 15:56 LIEUTENANT SHIFT [email or web address] (ml) Colloids volume administered ( ml) Blood Product volume administered (ml) Total IV fluid infused 100 03/13/25 15:56 LIEUTENANT SHIFT [email or web address] Anesthesia Postop Eval I: Summary Notes Anesthesia Complication No 03/13/25 15:56 LIEUTENANT SHIFT [email or web address] Anesthesia Complication Comment: Post-operative progress note Anesthesia: Postop Eval II Evaluation Mental status: Awake and Calm Pain Level: 0 nausea: No Vomiting: No Complications Anesthesia Complication: No
--- NOTE | 2025-03-13 16:18 | PCM.POSTANE2 ---
Anesthesia Postop Eval I Sum Postop Eval Completion status Anesthesia document: Postop Eval 1 completed: Yes Anesthesia Postop Eval I Summary Anesthesia Postop Eval I Summary: Anesthesia Postop Eval I: Assessment Summary Airway patent Yes 03/13/25 15:56 [email or web address] Spontaneous unlabored Yes 03/13/25 15:56 [email or web address] respirations Mental status Awake,Calm 03/13/25 15:56 [email or web address] nausea No 03/13/25 15:56 [email or web address] Vomiting No 03/13/25 15:56 [email or web address] Anesthesia Postop Eval I: Fluid Summary Crystalloid volume administer 100 03/13/25 15:56 [email or web address] (ml) Colloids volume administered ( ml) Blood Product volume administered (ml) Total IV fluid infused 100 03/13/25 15:56 [email or web address] Anesthesia Postop Eval I: Summary Notes Anesthesia Complication No 03/13/25 15:56 [email or web address] Anesthesia Complication Comment: Post-operative progress note Anesthesia: Postop Eval II Evaluation Mental status: Awake and Calm Pain Level: 0 nausea: No Vomiting: No Complications Anesthesia Complication: No
[2025-03-14 03:35] VITALS: BP 159/99; PULSE 75; RESP 20; TEMP 36.6; O2SAT 97
[2025-03-14 04:31] VITALS: BMI 52.0
[2025-03-14 05:51] LABS: Hematocrit 27.3 % (37-47); Hemoglobin 8.5 g/dL (12.0-15.0); Immature Granulocytes Count 0.020 X10^3/uL (0.0-0.0); Mean Corp Hgb Conc 31.1 g/dL (32-36); Mean Corpuscular Volume 80.5 fL (81-99); Mean Platelet Vol. 10.4 fl (6.2-12.0); NRBC Flagged by Analyzer 0 % (0-5); Platelet Count 193 K/mm3 (150-450); RBC Distribution Width CV 14.8 % (11.6-14.6); RBC Distribution Width SD 43.1 fl (35.1-43.9); Red Blood Count 3.39 M/mm3 (4.2-5.4); White Blood Count 7.1 K/mm3 (4.4-11.0)
[2025-03-14 06:13] LABS: Anion Gap 12 (5-15); BUN 12 mg/dL (4-19); BUN/Creat Ratio 16.6 RATIO (10-20); Calcium,Total 8.8 mg/dL (7.6-11.0); Carbon Dioxide 24.2 mmol/L (21.0-32.0); Chloride 104 mmol/L (98-108); Estimated Creatinine Clearance 105.52 ml/min (50-250); Glucose 98 mg/dL (70-99); Potassium 3.6 mmol/L (3.3-5.1)
[2025-03-14 09:00] VITALS: BP 157/106; PULSE 87; RESP 15; TEMP 36.6; O2SAT 96
[2025-03-14] MEDS: Senna/Docusate Sodium 1 Tablet 2 TABLET PO (09:26)
[2025-03-14] MEDS: Pantoprazole Sodium 40 MG in 0.9% Normal Saline (100mL MB+) 100 ML 300 MG IV (09:43)
--- NOTE | 2025-03-14 10:37 | DS.PCM_ITS ---
Providers Date of Admission: 03/08/25 Date of Discharge: 03/14/25 Primary Care Physician: Dr. 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 / Pulmonary Medicine Routine Consulting Provider: Pulmonary Medicine varun Bronson Reason for Consult: Vent management EMERGENT Consult: No Notified: Yes Date Notified: 03/08/25 Time Notified: 23:23 Method of Notification: Text 03/11/25 11:53 Consult: Gastroenterology Routine Consulting Provider: [facility] Reason for Consult: anemia, positive FOBT EMERGENT Consult: No Notified: Yes Date Notified: 03/11/25 Time Notified: 11:53 Method of Notification: Text Reason For Visit: ACUTE HYPERCAPNIC RESPIRATORY FAILURE, UTI Diagnosis Discharge Diagnosis (1) Anemia: Status: Acute Code(s): D64.9 - Anemia, unspecified Plan #Acute on chronic hypoxic and hypercapnic respiratory failure * Patient was admitted with a complaint of altered mental status and shortness of breath. ABG done showed hypercapnic respiratory acidosis. She was unable to tolerate BiPAP so was intubated. * She is on lorazepam and methadone as well as oxycodone at home. She also did not wear her BiPAP the night before admission so this together with her medications made her more lethargic. * extubated on 03/10/2025 and is on 3L of oxygen. * 2D echo showed EF of 50% with no regional wall motion abnormalities noted and mild global right ventricular systolic dysfunction * Critical care on board. Titrate oxygen to maintain saturation above 90%. * Chest x-ray on admission did show mild cardiomegaly with diffuse pulmonary vascular congestion as well as left lung base consolidation. * sputum cultures growing Beta streptococcus (rare growth) * #Acute metabolic encephalopathy due to acute on chronic hypoxic and hypercapnic respiratory failure and UTI * Management as above. * on IV ceftriaxone for UTI. COmplete a 5 day course. * resolved #UTI: Urinalysis showed 4+ bacteria. urine cultures growing E coli. Currently on IV ceftriaxone. #HYpotension * resolved. * #LEIGH ANN: resolved. #Acute on chronic anemia * Hb today is 8.1 * on eliquis. She says she does have hemorrhoids which occasionally bleed. * Her baseline Hb is ~ 8-9. * iron profile does show iron deficiency anemia which is chronic * eliquis held. GI consulted. FOr EGD today per GI. * * #History of seizure disorder: On lacosamide and Keppra #Parkinson's disease: On Sinemet. * follows Dr Castro and per office note on 01/08/2025. 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 Complicates acute care, expected recovery and prognosis #DVT Prophylaxis: Already on Eliquis. Hold eliquis o/a of positive FOBT. SCDs Medications at Discharge Home Medications compr.stocking,thigh,reg,x-lrg #24 ea 01/15/24 miscellaneous medical supply 1 ea miscellaneous DAILY debility #1 ea 01/16/24 miscellaneous medical supply 1 ea miscellaneous DAILY #1 ea 04/29/24 miscellaneous medical supply 1 ea miscellaneous DAILY #1 ea 04/29/24 rosuvastatin 10 mg tablet 10 mg PO DAILY cholesterol 1 month #30 tabs 06/23/24 albuterol sulfate 90 mcg/actuation aerosol inhaler 2 puff inhalation Q6H PRN shortness of breath or wheezing #8.5 grams 06/26/24 miscellaneous medical supply #1 ea 07/08/24 ondansetron HCl 4 mg tablet 4 mg PO Q8H PRN nausea and vomiting #30 tabs 07/08/24 miscellaneous medical supply #1 ea 07/29/24 naloxone 4 mg/actuation nasal spray 1 spray intranasal Q2M PRN opioid overdose 08/12/24 sennosides 8.6 mg-docusate sodium 50 mg tablet (Senexon-S) 1 tab-cap PO DAILY 08/12/24 acetaminophen 325 mg tablet 650 mg (2 x 325 mg) PO Q4H PRN PRN Fever, pain 1- 05/01 #0 tabs 08/15/24 lorazepam 1 mg tablet 1 mg PO 0100,0700,1300,1900 #0 tabs 08/15/24 methadone 10 mg tablet 10 mg PO Q8 #0 tabs 08/15/24 oxycodone 15 mg tablet 15 mg PO Q4H PRN pain 3 days #10 tabs 08/15/24 mupirocin 2 % topical ointment 1 applic topical BID #22 grams 08/28/24 polyethylene glycol 3350 17 gram/dose oral powder (Miralax) 4 g PO DAILY stool softener #119 grams 10/29/24 metoprolol succinate 100 mg tablet,extended release 24 hr 50 mg PO DAILY PRN blood pressure 11/14/24 furosemide 20 mg tablet 30 mg (1.5 x 20 mg) PO DAILY diuretic #45 TABLETS 12/17/24 venlafaxine 150 mg capsule,extended release 24 hr (Effexor XR) 150 mg PO DAILY depression #90 caps 12/29/24 cholecalciferol (vitamin D3) 1,250 mcg (50,000 unit) capsule 1,250 mcg PO QWEEK supplement #8 caps 12/30/24 mirtazapine 7.5 mg tablet 7.5 mg PO QHS sleep #30 tabs 01/06/25 carbidopa 25 mg-levodopa 100 mg tablet 2 tab PO .QID #240 tabs 01/08/25 lacosamide 200 mg tablet 200 mg PO BID #60 tabs 01/08/25 levetiracetam 750 mg tablet 750 mg PO BID seizures #60 tabs 01/08/25 apixaban 5 mg tablet (Eliquis) 5 mg PO BID blood thinner #60 tabs 03/02/25 Held on 03/14/25. Instructions: Resume on 03/21/25. losartan 100 mg tablet (Cozaar) 100 mg PO DAILY blood pressure #90 tabs 03/05/25 OXYGEN - Supplemental ([facility] INFORMATIONAL USE ONLY) 03/12/25 cefdinir 300 mg capsule 300 mg PO Q12 #10 caps 03/14/25 pantoprazole 40 mg tablet,delayed release 40 mg PO BID #60 tabs 03/14/25 sucralfate 1 gram tablet 1 g PO Q6H 30 days #120 tabs 03/14/25 Hospital Course Operations None Procedures 2-D Echocardiogram Summary of Care Provided Minutes Spent on Discharge: 45 Hospital Course: Patient is a 59-year-old female with an extensive past medical history outlined was admitted through the ED on 03/08/2025 with altered mental status as well as headache. She was with her brother and sister who initially reported that there were concerns for unresponsiveness for about 5 minutes at home but at the time the EMS arrived she was awake. She usually uses a wheelchair and walker and was under the care of palliative care services for pain. On admission CT of the brain showed no acute intracranial pathology. Creatinine was 1.46. Chest x-ray showed no acute cardiopulmonary pathology. COVID, flu and RSV were negative. Urinalysis did show 4+ bacteria. She was hydrated gently with IV fluids and she was started on antibiotics for UTI and admitted to be managed for acute encephalopathy due to UTI. ABG done showed pH of 7.18 with PCO2 of 98.6 and PO2 of 98. Patient was still quite lethargic. She was placed on BiPAP. Repeat ABG however showed pH of 7.1 and PO2 now 72 with PCO2 still 98.6. She was therefore emergently intubated and admitted to the ICU to be managed for acute hypoxic and hypercapnic respiratory failure likely medication induced in light of the numerous narcotics and sedative agents she was on. She was also treated for UTI. Critical care was consulted. There was also concern for left lower lobe pneumonia. She was placed on ceftriaxone and azithromycin. Blood cultures were obtained. 2D echo showed EF of 50% with mild global right ventricular systolic dysfunction and mildly increased right ventricular wall thickness and no regional wall motion abnormality seen. Patient had a protracted course on the ventilator and failed spontaneous breathing trial several times. However eventually she was extubated on 03/10/2025 to her baseline 3 L of oxygen. Sputum cultures grew beta Streptococcus. She was placed on IV ceftriaxone as urine cultures grew E. coli and beta Streptococcus was also sensitive to the ceftriaxone. She was eventually transition to cefdinir. Of note Hospital course was complicated by acute on chronic anemia. Patient was on Eliquis. She did says she had hemorrhoids which usually bleed. However iron profile showed iron deficiency anemia. Gastroenterology was therefore consulted and she had EGD done on 03/13/2025 which showed oozing gastric ulcers which were treated with a heater probe. She was placed on p.o. pantoprazole 40 mg twice daily and p.o. sucralfate. Per GI recommendations her Eliquis was held for a week after discharge and she is to resume the Eliquis 1 week after discharge. She remained stable and was discharged home on 03/14/2025. She is to follow-up with her primary care doctor and with gastroenterology within 1 to 2 weeks. She is also to resume care with palliative care services. Patient seen and examined prior to discharge. She had no active complaints and had an uneventful night. Review of systems otherwise negative. Labs and vitals reviewed. Home medication reviewed and reconciled. Physical Exam Const alert, oriented x3 and no apparent distress Constitutional Narrative: class III obesity General Appearance: cooperative and comfortable Orientation / Consciousness: awake HEENT normocephalic, head/scalp atraumatic, hearing grossly normal bilaterally, moist oral mucous membranes and oropharynx normal Mouth: oral and palatal mucosa normal Eyes PERRL Neck supple Lymph Lymphatic: no lymphedema noted Resp Resp Narrative: mildly diminished breath sounds bibasally, no wheezes or crackles. Remains on 2L of oxygen by nasal canula which is the basline Cardio regular rate, regular rhythm, S1 normal heart sound, S2 normal heart sound and no murmurs GI normal to inspection, nondistended, normoactive bowel sounds, soft to palpation and non-tender Extremity normal capillary refill, no clubbing, cyanosis or edema and no calf tenderness General Extremity: no tenderness to palpation of joints or extremities Skin General Skin Exam: no breakdown Neuro oriented x3, CN's II-XII intact bilaterally, moves all extremities, no focal motor deficits and no sensory deficits noted Sensorium / Orientation: awake and alert Motor Exam: general weakness Psych thought process normal and cooperative Appearance: appropriate Mood & Affect: flat affect Weight / BMI Weight Weight: 284 lb 6.341 oz Body Mass Index (BMI) 52.0 ABG / Lab / Microbiology Data 03/14/25 05:31 03/14/25 05:31 Laboratory: Laboratory Results - last 24 hr 03/13/25 18:49: POC Glucose 115 H 03/14/25 00:12: POC Glucose 115 H 03/14/25 05:31: WBC 7.1, RBC 3.39 L, Hgb 8.5 L, Hct 27.3 L, MCV 80.5 L, MCH 25.1 L, MCHC 31.1 L, RDW Std Deviation 43.1, RDW Coeff of Immanuel 14.8 H, Plt Count 193, MPV 10.4, Immature Gran % (Auto) 0.300, Neut % (Auto) 67.1, Lymph % (Auto) 22.1, [place] % (Auto) 6.7, Eos % (Auto) 3.5, Baso % (Auto) 0.3, Absolute Neuts (auto) 4.8, Absolute Lymphs (auto) 1.58, Nucleated RBC % 0, Sodium 140, Potassium 3.6, Chloride 104, Carbon Dioxide 24.2, Anion Gap 12, BUN 12, Creatinine 0.74, Estim Creat Clear Calc 105.52, Est GFR (MDRD) Non-Af 94, BUN/Creatinine Ratio 16.6, Glucose 98, Calcium 8.8 03/14/25 06:00: POC Glucose 99 Microbiology: Microbiology 03/11/25 08:40 Stool Stool Occult Blood (KAELA) - Final Occult Blood Positive 03/08/25 22:15 Sputum, Induced/Lukens Gram Stain - Final 03/08/25 22:15 Sputum, Induced/Lukens Respiratory Culture - Final Streptococcus agalactiae (B) 03/08/25 16:07 Blood Culture (Wb) - Anticubital Left Blood Culture - Preliminary No growth in 48 hours. 03/08/25 16:00 Blood Culture (Wb) - Anticubital Left Blood Culture - Preliminary No growth in 48 hours. 03/08/25 16:50 Urine, Clean Catch Urine Culture - Final Presumptive E. coli 03/08/25 22:15 Mucosa - Nasopharyngeal Respiratory Panel (PCR) - Final 03/08/25 16:07 Mucosa - Nose SARS-CoV-2, Influenza & RSV (PCR) - Final D/C Instructions Discharge Activity: Return to Normal Activity Weight Bearing Status: Weight bearing as tolerated Call your doctor if you observe: Fever of 101 or Higher, Shortness of breath, Dizziness, Swelling in the ankles and Chest pain DC O2, CPAP, BIPAP Needs Home O2 Discharge instructions: Yes Type of respiratory needs?: Oxygen Oxygen frequency: Continuous Continuous oxygen liters per minute: 3 DC home with Oxygen: Yes Home O2 MD Review: I have reviewed the oxygen testing, and the patient qualifies for home oxygen equipment and portability. The patient is mobile in the home and the community. Meaningful Use Info Meaningful Use Meaningful Use Diagnoses (Choose all that apply): None applicable Discharge Plan Admission Admit Date/Time: 03/08/25 20:54 Primary Reason for Your Visit: acute hypoxic respiratory failure, acute on chronic anemia, GI bleed Attending Provider: Sallie Chan Primary Care Provider: Ysabel Ruffin Consulting Providers: Selena Covington Instructions Patient Instructions: Respiratory Failure: General Info, Bleeding Peptic Ulcer: Treatment, Anemia Discharge Orders/Prescriptions Prescriptions: New cefdinir 300 mg Capsule 300 mg PO Q12 Qty: 10 0RF pantoprazole 40 mg tablet,delayed release (DR/EC) 40 mg PO BID Qty: 60 1RF sucralfate 1 gram tablet 1 g PO Q6H 30 Days Qty: 120 1RF Continued (DME) compr.stocking,thigh,reg,x-lrg Misc See Rx Instructions .Route Qty: 24 0RF Rx Instructions: As directed miscellaneous medical supply Kit 1 ea miscellaneous DAILY Qty: 1 0RF Rx Instructions: Motorized wheelchair mupirocin 2 % ointment 1 applic topical BID Qty: 22 0RF metoprolol succinate 100 mg tablet extended release 24 hr 50 mg PO DAILY PRN (Reason: blood pressure) Patient Comments: TAKE (1) TABLET BY MOUTH ONCE DAILY Rx Instructions: Hold for heart less than 60 or systolic blood pressure less than 100 mmHg. venlafaxine [Effexor XR] 150 mg capsule,extended release 24hr 150 mg PO DAILY Qty: 90 0RF levetiracetam 750 mg tablet 750 mg PO BID Qty: 60 6RF lacosamide 200 mg tablet 200 mg PO BID Qty: 60 5RF carbidopa-levodopa 25-100 mg tablet 2 tab PO .QID Qty: 240 5RF rosuvastatin 10 mg tablet 10 mg PO DAILY 30 Days Qty: 30 2RF sennosides-docusate sodium [Senexon-S] 8.6-50 mg tablet 1 tab-cap PO DAILY Patient Comments: [NO ORIGINAL SIG] naloxone 4 mg/actuation spray,non-aerosol 1 spray INTRANASAL Q2M PRN (Reason: opioid overdose) Patient Comments: ADMINISTER A SINGLE SPRAY INTRANASALLY INTO ONE NOSTRIL OF VICTIM SUSPECTED OF EXPERIENCING AN OPIOID-RELATED OVERDOSE. CALL 911. REPEAT WITH SECOND DEVICE INTO OTHER NOSTRIL AFTER 2-3 MINUTES IF NO OR MINIMAL RESPONSE. acetaminophen 325 mg Tablet 650 mg PO Q4H PRN PRN (Reason: Fever, pain 1-10/10) Qty: 0 0RF oxycodone 15 mg tablet 15 mg PO Q4H PRN (Reason: pain) 3 Days Qty: 10 0RF methadone 10 mg Tablet 10 mg PO Q8 Qty: 0 0RF lorazepam 1 mg Tablet 1 mg PO 0100,0700,1300,1900 Qty: 0 0RF (DME) OXYGEN - Supplemental ([facility] INFORMATIONAL USE ONLY) Gas See Rx Instructions .ROUTE Patient Comments: 2 lpm at home, 2 lpm on exertion, 2 lpm at HS Rx Instructions: As directed miscellaneous medical supply [facility] miscellaneous DAILY Qty: 1 0RF Rx Instructions: Hospital Bed miscellaneous medical supply [facility] 1 ea miscellaneous DAILY Qty: 1 0RF Rx Instructions: lift chair albuterol sulfate 90 mcg/actuation HFA aerosol inhaler 2 puff inhalation Q6H PRN (Reason: shortness of breath or wheezing) Qty: 8.5 0RF ondansetron HCl 4 mg tablet 4 mg PO Q8H PRN (Reason: nausea and vomiting) Qty: 30 1RF (DME) miscellaneous medical supply [facility] See Rx Instructions .Route Qty: 1 0RF Rx Instructions: As directed (DME) miscellaneous medical supply [facility] See Rx Instructions .Route Qty: 1 0RF Rx Instructions: As directed polyethylene glycol 3350 [Miralax] 17 gram/dose powder 4 g PO DAILY Qty: 119 0RF furosemide 20 mg tablet 30 mg PO DAILY Qty: 45 1RF cholecalciferol (vitamin D3) 1,250 mcg (50,000 unit) capsule 1,250 mcg PO QWEEK Qty: 8 0RF mirtazapine 7.5 mg tablet 7.5 mg PO QHS Qty: 30 3RF losartan [Cozaar] 100 mg tablet 100 mg PO DAILY Qty: 90 0RF Held Eliquis 5 mg tablet 5 mg PO BID Qty: 60 3RF Hold Instructions: Resume on 03/21/25. Discontinued omeprazole 20 mg capsule,delayed release(DR/EC) 20 mg PO DAILY Qty: 30 3RF Referrals / Follow Up: Ysabel Ruffin MD [Primary Care Provider] - Within 1 Week Ajay Millard DO [Med Staff - Active Staff] - Within 2 Weeks Disposition Disposition (needs filled in before D/C Order can be placed): Home Health Service Charges/Coding Visit Charges Inpatient E&M: 47767 Disch Hosp >30min
== END 2025-03-14 11:57 | disposition home health service (06) | DRG 720 ==
LOC: ED 17:42 → ICU 21:13 → PCU 03-11 16:16
PROVIDERS: Anesthesiology; Internal Medicine; Internal Medicine Gastroenterology; Internal Medicine Pulmonary Disease; Admitting Provider Internal Medicine; Emergency Provider Emergency Medicine; PCP Internal Medicine; Visit Provider Student in an Organized Health Care Education/Training Program
PROC: 0DJ08ZZ Inspection of Upper Intestinal Tract, Via Natural or Artificial Opening Endoscopic (ICD-10-PCS; CPT 43235; principal; 2025-03-13 15:25)
DX: A41.51 Sepsis due to Escherichia coli [E. coli] (principal); J96.22 Acute and chronic respiratory failure with hypercapnia; J96.21 Acute and chronic respiratory failure with hypoxia; K25.4 Chronic or unspecified gastric ulcer with hemorrhage; G93.41 Metabolic encephalopathy; G40.909 Epilepsy, unspecified, not intractable, without status epilepticus; J44.0 Chronic obstructive pulmonary disease with (acute) lower respiratory infection; E66.01 Morbid (severe) obesity due to excess calories; G20.A1 Parkinson's disease without dyskinesia, without mention of fluctuations; D63.8 Anemia in other chronic diseases classified elsewhere; F32.A Depression, unspecified; I10 Essential (primary) hypertension; D68.32 Hemorrhagic disorder due to extrinsic circulating anticoagulants; D62 Acute posthemorrhagic anemia; E78.5 Hyperlipidemia, unspecified; J18.9 Pneumonia, unspecified organism; G47.33 Obstructive sleep apnea (adult) (pediatric); K21.9 Gastro-esophageal reflux disease without esophagitis; I25.10 Atherosclerotic heart disease of native coronary artery without angina pectoris; N17.9 Acute kidney failure, unspecified; Z68.42 Body mass index [BMI] 45.0-49.9, adult; F41.9 Anxiety disorder, unspecified; N39.0 Urinary tract infection, site not specified; G89.29 Other chronic pain; B96.20 Unspecified Escherichia coli [E. coli] as the cause of diseases classified elsewhere; Z86.711 Personal history of pulmonary embolism; Z79.899 Other long term (current) drug therapy; Z79.01 Long term (current) use of anticoagulants; Z87.891 Personal history of nicotine dependence; Z86.718 Personal history of other venous thrombosis and embolism; Z79.51 Long term (current) use of inhaled steroids
CPT/HCPCS: 31500; 31720; 36415; 36569; 36600; 51702; 70450; 71045; 72125; 80048; 80053; 80076; 80143; 80179; 81001; 82140; 82274; 82550; 82728; 82803; 82962; 83540; 83550; 83605; 83735; 84478; 85014; 85018; 85025; 85610; 85730; 86850; 86900; 86901; 87040; 87070; 87077; 87086; 87088; 87186; 87205; 87631; 87633; 93005; 93306; 94002; 94003; 94640; 94660; 94668; 97162; 97163; 97166; 97530; 97535; 97802; 97803; 99252; 99285; C1889; P9016; Q9957; A4216; C8929; G0463; J1938; J2405

== ENCOUNTER → 2025-03-31 | Outpatient (CLI) | payer MEDICAID, SELFPAY ==
[2025-03-31 12:33] LABS: Hematocrit 32.8 % (37-47); Hemoglobin 9.9 g/dL (12.0-15.0); Immature Granulocytes Count 0.030 X10^3/uL (0.0-0.0); Mean Corp Hgb Conc 30.2 g/dL (32-36); Mean Corpuscular Volume 81.4 fL (81-99); Mean Platelet Vol. 11.2 fl (6.2-12.0); NRBC Flagged by Analyzer 0 % (0-5); Platelet Count 256 K/mm3 (150-450); RBC Distribution Width CV 14.8 % (11.6-14.6); RBC Distribution Width SD 43.6 fl (35.1-43.9); Red Blood Count 4.03 M/mm3 (4.2-5.4); White Blood Count 8.5 K/mm3 (4.4-11.0)
== END | disposition home or self-care (01) ==
LOC: BIMLAB 09:53
PROVIDERS: PCP Internal Medicine; Referring Provider Internal Medicine; Visit Provider Internal Medicine
DX: D62 Acute posthemorrhagic anemia (principal)
CPT/HCPCS: 36415; 85025

== ENCOUNTER → 2025-06-01 | Outpatient (CLI) | payer MEDICAID, SELFPAY ==
[2025-06-01 18:02] LABS: Hematocrit 31.2 % (37-47); Hemoglobin 9.4 g/dL (12.0-15.0); Mean Corp Hgb Conc 30.1 g/dL (32-36); Mean Corpuscular Volume 80.2 fL (81-99); Mean Platelet Vol. 11.3 fl (6.2-12.0); Platelet Count 323 K/mm3 (150-450); RBC Distribution Width CV 14.7 % (11.6-14.6); RBC Distribution Width SD 42.9 fl (35.1-43.9); Red Blood Count 3.89 M/mm3 (4.2-5.4); White Blood Count 9.9 K/mm3 (4.4-11.0)
[2025-06-01 18:22] LABS: AST(SGOT) 22 U/L (<=31); Alanine Aminotransfer ALT/SGPT 6 U/L (<=34); Albumin, Serum 3.9 g/dL (3.5-5.0); Alkaline Phosphatase 85 U/L (35-104); Anion Gap 12 (5-15); BUN 17 mg/dL (4-19); BUN/Creat Ratio 20.5 RATIO (10-20); Calcium,Total 9.6 mg/dL (7.6-11.0); Carbon Dioxide 25.6 mmol/L (21.0-32.0); Chloride 101 mmol/L (98-108); Globulin 3.6 g/dL (2.2-4.2); Glucose 120 mg/dL (70-99); Potassium 3.8 mmol/L (3.3-5.1)
[2025-06-01 18:24] LABS: Ammonia 22.4 umol/L (11-51)
== END | disposition home or self-care (01) ==
LOC: MTLAB 15:43
PROVIDERS: PCP Internal Medicine; Referring Provider Psychiatry & Neurology Neurology; Visit Provider Psychiatry & Neurology Neurology
DX: G40.909 Epilepsy, unspecified, not intractable, without status epilepticus (principal)
CPT/HCPCS: 36415; 80053; 80177; 82140; 82652; 85027